=== PATIENT | female | born 1940 | race Caucasian/White ===

== ENCOUNTER 2017-12-06 19:59 | Emergency (ER) | payer MEDICARE, SELFPAY ==
[2017-12-06 20:00] VITALS: BP 157/92; PULSE 65; RESP 16; TEMP 36.6; O2SAT 92; BMI 33.7
[2017-12-06 21:17] VITALS: BP 139/71; PULSE 66; RESP 25; O2SAT 93
--- NOTE | 2017-12-06 22:00 | EKG12_ITS ---
Test Reason : CP Blood Pressure : / mmHG Vent. Rate : 064 BPM Atrial Rate : 063 BPM P-R Int : 000 ms QRS Dur : 194 ms QT Int : 504 ms P-R-T Axes : 000 -78 105 degrees QTc Int : 519 ms Ventricular-paced rhythm Abnormal ECG Confirmed by KEARA COLLIER, AYDE ([id number]), society editor JASON OSORIO ([id number]) on 12/08/2017 1:35:48 PM Referred By: CEASAR Confirmed By:AYDE SARAH MD
[2017-12-06] MEDS: Ipratropium/Albuterol Sulfate 3 ML AMPUL.NEB INHALATION (22:09)
[2017-12-06] MEDS: Albuterol 2.5 MG/3 ML VIAL.NEB. INHALATION ×2 (22:09→22:23)
[2017-12-06 22:10] VITALS: PULSE 60; RESP 24
[2017-12-06 22:23] VITALS: PULSE 62; RESP 20
[2017-12-06 22:45] LABS: Absolute Lymphocyte Count 2.43 X10^3/ul (0.83-4.51); Absolute Neutrophil Count 5.9 X10^3/uL (2.0-7.7); Basophil# 0.02 X10^3/uL; Basophil% 0.2 % (0-1); Eosinophil# 0.18 X10^3/uL; Eosinophils% 1.9 % (0-5); Hematocrit 41.7 % (37-47); Hemoglobin 13.1 g/dl (12.0-15.0); Lymphocyte # 2.43 X10^3/ul (4.0); Lymphocyte % 25.8 % (19-41); Mean Corp Hgb Conc 31.4 g/gl (32-36); Mean Corpuscular Hgb 29.4 pg (27.0-32.0); Mean Corpuscular Volume 93.7 fL (81-99); Mean Platelet Vol. 9.8 fl (6.2-12.0); Monocyte# 0.82 X10^3/uL; Monocyte% 8.7 % (0-10); Neutrophil # 5.93 X10^3/uL (2.7-7.7); Neutrophil % 63.1 % (47-70); Platelet Count 146 K/mm3 (150-450); RBC Distribution Width CV 16.8 % (11.6-14.6); RBC Distribution Width SD 56.8 fl (35.1-43.9); Red Blood Count 4.45 M/mm3 (4.2-5.4); White Blood Count 9.4 K/mm3 (4.4-11.0)
--- NOTE | 2017-12-06 22:45 | RAD_ITS ---
STUDY: X-RAY CHEST REASON FOR EXAM: Female, 77 years old. Cough TECHNIQUE: Frontal view of the chest COMPARISON: None. FINDINGS: There are mild congestive changes noted. The lungs are otherwise clear. There are no pleural effusions. There is no pneumothorax. The heart is enlarged. There is a pacemaker in place. The patient is status post sternotomy. RAD/Chest PA and Lateral IMPRESSION: Cardiomegaly with mild pulmonary vascular congestion. Electronically Signed: Jaison Saha, at 23:01 EST Tel , Service support ,
[2017-12-06 22:46] LABS: POSITIVE COUNT NO; POSITIVE DIFFERENTIAL NO; POSITIVE MORPHOLOGY NO
[2017-12-06 23:09] VITALS: BP 108/75; PULSE 98; RESP 21; O2SAT 95
[2017-12-06 23:10] LABS: Anion Gap 5 (5-15); BUN 35 mg/dL (7-18); BUN/Creat Ratio 18.7 RATIO (10-20); Calcium,Total 8.8 mg/dL (8.5-10.1); Chloride 103 mmol/L (98-107); Creatinine, Serum 1.87 mg/dL (0.55-1.02); EST Glomerular Filtration Rate 28 mL/min (>60); Est Glom Filt Rate - Afr Amer 34 mL/min (>60); Estimated Creatinine Clearance 25.82 ml/min; Glucose 254 mg/dL (74-106); Potassium 4.2 mmol/L (3.5-5.1); Sodium Level 140 mmol/L (136-145)
--- NOTE | 2017-12-06 23:32 | ED.DCSUM_ITS ---
- ER Visit Summary Date of Service: 12/06/17 Chief Complaint: Cough History of Present Illness: The patient is a 77 F with a history of COPD and CHF. She is on home oxygen at 2-1/2 L. She reports cough with clear sputum and shortness of breath since yesterday. She reports her fever up to 102.5. Patient has been on Levaquin for the past 6 days for UTI. She is currently on renal dosing. She has 2 days left of her Levaquin. Physical Examination: Blood pressure is 139/71, temperature 97.8, heart rate 66 , respiratory rate 25, pulse ox 93% on 2 L nasal cannula. Patient sitting upright in bed speaking full sentences. She is in no acute distress. Heart is regular rate and rhythm. Lung sounds are with auditory and expiratory wheezes throughout. She is in no respiratory distress. Abdomen is soft, obese, nontender. Lower extremity examination reveals 1+ bilateral edema that is symmetric. Test Results: EKG is paced at 64 with no acute ischemia. Portable chest x-ray shows cardiomegaly. There is mild pulmonary congestion. CBC reveals normal white count. Lately count is 146,000. Chemistry studies reveal glucose of 254 , BUN 35, creatinine 1.87. Emergency Department Course and Treatment: Patient was given a DuoNeb treatment followed by 2 albuterol's. On repeat evaluation she does have improved air movement. There is very minimal wheeze. I am concerned the patient may have influenza with a temperature 102.5 and respiratory symptoms without an infiltrate. I have advised that we are out of the influenza reagent for testing , but if the sample is collected tonight he can be tested tomorrow. Patient received a single dose of Tamiflu now. She requires 30 mg once a day ?5 days secondary to her renal function. She is given a prescription for 4 additional days, but will only fill it if they are called with a positive influenza test result. She will also be given a course of Zithromax to cover atypicals as she has been on Levaquin. She will also be given a short course of prednisone. Patient has aerosols at home that she has not been using. She will use these instead of her puffer. She is to return for worsening symptoms. Treatment Plan: [] Disposition: Discharge Impression: 1. COPD exacerbation 2. Influenza This note was generated with [employer] software. It may contain incorrect words, spelling, and punctuation that were not noted in review of the chart prior to signing ED Disposition - Plan for ED Patient: Disposition: Home or Assisted Living Chief Complaint: Cough Instructions: ED COPD Flare Prescriptions: Azithromycin [Zithromax] 250 mg PO DAILY #4 tablet Oseltamivir Phosphate [Tamiflu] 30 mg PO DAILY #4 capsule Prednisone [Deltasone] 60 mg PO DAILY #12 tablet Referrals: Mook Rain MD [Primary Care Provider] - 3-5 Days if not improving
[2017-12-06] MEDS: Azithromycin 250 MG Tablet 500 MG PO (23:45)
[2017-12-06] MEDS: Oseltamivir Phosphate 30 MG Capsule PO (23:45)
[2017-12-06 23:46] VITALS: BP 132/65; PULSE 60; RESP 20; O2SAT 90
== END 2017-12-06 23:50 | disposition home or self-care (01) ==
PROVIDERS: Emergency Provider Emergency Medicine; Family Provider Family Medicine; PCP Family Medicine
DX: J44.1 Chronic obstructive pulmonary disease with (acute) exacerbation (principal); J11.1 Influenza due to unidentified influenza virus with other respiratory manifestations; Z99.81 Dependence on supplemental oxygen; I48.91 Unspecified atrial fibrillation; I13.0 Hypertensive heart and chronic kidney disease with heart failure and stage 1 through stage 4 chronic kidney disease, or unspecified chronic kidney disease; I50.9 Heart failure, unspecified; E11.22 Type 2 diabetes mellitus with diabetic chronic kidney disease; N18.9 Chronic kidney disease, unspecified; Z87.891 Personal history of nicotine dependence; Z79.4 Long term (current) use of insulin; E11.40 Type 2 diabetes mellitus with diabetic neuropathy, unspecified; E78.00 Pure hypercholesterolemia, unspecified; Z79.01 Long term (current) use of anticoagulants; Z79.899 Other long term (current) drug therapy
CPT/HCPCS: 36415; 71046; 80048; 85025; 87040; 87804; 93005; 94640; 99285; A4216

== ENCOUNTER → 2018-01-19 13:00 | Outpatient (CLI) | payer MEDICARE, SELFPAY ==
--- NOTE | 2018-01-19 13:02 | US_ITS ---
STUDY: RENAL ULTRASOUND - COMPLETE REASON FOR EXAM: Female, 77 years old. Chronic renal disease TECHNIQUE: Transverse and longitudinal imaging of the kidneys and bladder was obtained using real-time ultrasound. COMPARISON: None. FINDINGS: RIGHT KIDNEY: The right kidney is normal in location. The right kidney measures 12.3 x 5.5 x 6.4 cm. The renal cortex is normal in appearance. The renal cortex measures 1.4 cm. There is no demonstrated renal mass. There is no dilatation of the collecting system. There is a possible duplicated system in the right kidney. There is an echogenic focus in the upper pole of the right kidney measuring 5 mm. LEFT KIDNEY: The left kidney is normal in location. The left kidney measures 11.8 x 4.8 x 5.3 cm. The renal cortex is normal in appearance. The renal cortex measures 1.3 cm. There is no demonstrated renal mass. There is no dilatation of the collecting system. There is an echogenic focus in the upper pole of the left kidney measuring 4 mm. BLADDER: The distended urinary bladder has a volume of 150 ml. The bladder shows a normal wall thickness. There is no demonstrated mass in the bladder. The right ureteral jet was visualized. The left ureteral jet was visualized. US/Kidney and Bladder IMPRESSION: The kidneys are normal in size and echogenicity without hydronephrosis. There may be calyceal stones in the upper poles of both kidneys. Incidentally noted is splenic prominence, measuring almost 15 cm in size. Electronically Signed: Mandy Davila MD at 14:52 EDT Tel Direct: [phone], Service support ,
== END ==
PROVIDERS: Family Provider Family Medicine; PCP Family Medicine; Visit Provider Internal Medicine Nephrology
DX: N18.3 Chronic kidney disease, stage 3 (moderate) (principal)
CPT/HCPCS: 76770

== ENCOUNTER 2018-04-21 02:23 | Observation (INO) | payer MEDICARE, SELFPAY ==
[2018-04-21] VITALS (19 sets, daily range): BP systolic 105–142; BP diastolic 38–79; PULSE 62–82; RESP 14–18; TEMP 36.4–36.8; O2SAT 95–98; BMI 30.8
--- NOTE | 2018-04-21 02:46 | PCM.HP.STD ---
Problem List (1) HCAP (healthcare-associated pneumonia) Status: Suspected (2) Hypertension Status: Chronic (3) Hyperlipidemia Status: Chronic (4) Type 2 diabetes mellitus Status: Chronic (5) COPD (chronic obstructive pulmonary disease) Status: Chronic (6) Chronic hypoxemic respiratory failure Status: Chronic (7) Chronic anticoagulation Status: Acute (8) Atrial fibrillation Status: Chronic (9) Coronary artery disease Status: Chronic Qualifiers: Coronary Disease-Associated Artery/Lesion type: [place] artery (10) Presence of combination internal cardiac defibrillator (ICD) and pacemaker Status: Chronic (11) End stage renal disease Status: Chronic (12) Diabetic neuropathy Status: Chronic (13) Peripheral vascular disease Status: Chronic (14) Venous insufficiency of both lower extremities Status: Chronic (15) Congestive heart failure Status: Chronic Qualifiers: Heart failure type: systolic (16) Thrombocytopenia Status: Acute (17) Substernal chest pain Status: Acute (18) History of coronary artery bypass graft Status: Chronic Comment: 2013 (19) History of PTCA Status: Chronic Comment: 6 stents per patient History of Present Illness Date of Admission: 04/21/18 Chief Complaint: CP and lightheadedness The patient is a 77 year old F with a PMH of DM II, HTN, HLD, CAD, CABG, PVD, PM/AICD, systolic CHF, ESRD on HD, AF, chronic anticoagulation and chronic respiratory failure with hypoxemia who presented to the [facility] ED c/o substernal chest pain per the ED physician. She never mentioned CP to me and told me the reason she went to the ED was she got lightheaded at HD. She also did not mention a cough but when I asked she said she had a dry cough. She denies fevers, sweats, chills. she denied any change in SOB and she normally wears 2-2 1/2 LPM at home. She was afebrile at presentation to the ED. The CBC was unremarkable per the documentation except for plt's of 127,000. A CXR showed a retrocardiac infiltrate vs atelectasis. It was an AP film without a lateral. The initial troponin was 0.038 at [facility]. No EKG was sent. Apparently she was recently at [facility] after a 9 day admission to [facility]. the ER doc said for cellulitis but the patient said it was for her heart and the patient's dtr told me it was because her heart and lungs and kidneys were fighting. Neither the dtr or the patient know her meds and can not tell what reaction she has to the numerous allergies she has lasted. History was very difficult to obtain. the only time the patient coughed was when I had her take deep breaths. she is not tachypneic and has no conversational dyspnea or accessory muscle use. She does not appear to be toxic and in fact she does not appear to be in any distress at all. She is going to be admitted for observation for HCAP suspected by the [facility] ED doc. Past Medical History Past Medical History (Chronic Problems): Chronic Problems Hypertension (Chronic) Hyperlipidemia (Chronic) Type 2 diabetes mellitus (Chronic) COPD (chronic obstructive pulmonary disease) (Chronic) Chronic hypoxemic respiratory failure (Chronic) Atrial fibrillation (Chronic) Coronary artery disease (Chronic) 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) End stage renal disease (Chronic) Diabetic neuropathy (Chronic) Peripheral vascular disease (Chronic) Venous insufficiency of both lower extremities (Chronic) Congestive heart failure (Chronic) History of coronary artery bypass graft (Chronic) 2013 History of PTCA (Chronic) 6 stents per patient Allergies Penicillins Allergy (Verified 12/06/17 20:05) Hives Tetracyclines Allergy (Verified 12/06/17 20:05) Hives Home Medications: Ambulatory Orders Medication Instructions Recorded Albuterol Sulfate 5 mg IH Q6H PRN 12/06/17 Apixaban [Eliquis] 5 mg PO DAILY 12/06/17 Azithromycin [Zithromax] 250 mg PO DAILY #4 tablet 12/06/17 Benzonatate 100 mg PO TID PRN 12/06/17 Budesonide/Formoterol 160/4.5 2 puff INHALATION BID 12/06/17 [Symbicort 160/4.5 Mcg Inhaler (SP)] Furosemide 40 mg PO DAILY 12/06/17 Gabapentin Enacarbil [Horizant] 600 mg PO QHS 12/06/17 Insulin Aspart [Novolog Flexpen 0 - 100 units SC TIDCM PRN 12/06/17 ([facility])] Insulin Glargine,Hum.rec.anlog 40 unit SQ BREAKFAST 12/06/17 [Daljit Lyle] Insulin Glargine,Hum.rec.anlog 60 unit SQ DINNER 12/06/17 [Toujeo Solostar] Isosorbide Mononitrate [Isosorbide 30 mg PO DAILY 12/06/17 Mononitrate ER] Nitroglycerin 0.4 mg SL Q5M PRN 12/06/17 Oseltamivir Phosphate [Tamiflu] 30 mg PO DAILY #4 capsule 12/06/17 Pantoprazole Sodium [Protonix] 40 mg PO DAILY 12/06/17 Potassium Chloride [Klor-Con 10 meq PO BID 12/06/17 Sprinkle] Prednisone 10 mg PO DAILY 12/06/17 Prednisone [Deltasone] 60 mg PO DAILY #12 tablet 12/06/17 Simvastatin 40 mg PO QHS 12/06/17 Tiotropium Roy [Spiriva 18 MCG] 1 puff INHALATION DAILY 12/06/17 levoFLOXacin tablet [Levaquin] 250 mg PO DAILY 12/06/17 Surgical History: angioplasty - has had a total of 6 stents, cholecystectomy, coronary bypass surgery - 2013, hysterectomy - for DUB, pacemaker implantation - AICD/PM, - Psychiatric History: No pertinent psych hx [employer] History: dysfunctional uterine bld Lives: With Family, - - she is a and up until last year lived in [place] Smoking Status: Former smoker - quit in 2001 Tobacco Use: Non-smoker Alcohol: Rare Drugs: None - *Family History Maternal History Items: No pertinent history Paternal History Items: No pertinent history Review of Systems Constitutional: Denies: Anorexia, Chills, Fever, Night Sweats Eyes: Denies: Vision Change HEENT: Reports: Difficulty Swallowing. Denies: Head Aches, Sore Throat Cardiovascular: Reports: Chest Pain, Edema, Light Headedness. Denies: Palpitations, Paroxysmal Noc. Dyspnea, Syncope Respiratory: Reports: Cough - dry...she did not seem to think this was out of the ordinary for her and she does have COPD Gastrointestinal: Denies: Abdominal Pain, Diarrhea, Nausea, Vomiting Genitourinary: Reports: Dysuria - for the past month Gynecological: Denies: Breast symptoms, Vaginal discharge Musculoskeletal: Denies: Joint Pain, Joint Tenderness Skin: Reports: - - she has a small scab on the LLE just proximal to the L ankle on the medial side.....no erythema or increased warmth. she has discoloration of both LE's due to chronic swelling/venous insufficiency. Denies: Jaundice, Rash Neurological: Reports: Difficulty swallowing. Denies: Slurred speech, Confusion, Focal weakness, Numbness, Tingling, Seizures Psychiatric: Denies: Anxiety, Depression, Homicidal Ideations, Suicidal Ideations Endocrine: Denies: Change in Body Habitus Hematologic/ Lymphatic: Denies: Hx of blood clot VTE Information - Inpt Only VTE Present on Admission: No VTE Mechan Device Prophylaxis: None - pt can not tolerate leg compression due to pain VTE Pharm Prophylaxis ordered?: No Reason prophylaxis not ordered:: Treatment Not Indicated - she is anticoagulated with eliquis Patient Problems: Active and Suspected Problems HCAP (healthcare-associated pneumonia) (Suspected) Chronic anticoagulation (Acute) Thrombocytopenia (Acute) Substernal chest pain (Acute) - Physical Exam General: Alert, Oriented x3, Cooperative, No apparent distress, Well developed, Well nourished HEENT: Atraumatic, PERRLA, EOMI Oral: Moist Mucosa Neck: Negative Carotid Bruits, No Nodes, Trachea Midline Lungs: No rhonchi, Rales, Wheezes, - - rare exp wheeze, no rales, not tachypneic, no accessory muscle use, no conversational dyspnea, symmetric chest rise.......dminished throughout but, most diminished in the right base Cardiovascular: Irregular Rate, No rub noted, No Gallop, - - distant heart sounds. no MM appreciated and no gallop or rub Abdomen: Bowel Sounds Present, Soft, Non Tender, Non-Distended Extremities: No clubbing, No cyanosis, No Calf Tenderness, Diminished Peripheral Pulses, Edema, - - small eschar Left LE just proximal to the ankle and on the medial side. No increased warmth and no purulent DC. the skin over the distal LE's is discolored from long standing vennous insufficiency and the skin has lost the elasticity...it is boggy and fibrotic......will be very prone to breakdown Skin: No rashes Musculoskeletal: Arthritic Changes Neurological: Cranial nerves II-XII grossly intact, Neuro grossly intact Psych/Mental Status: Normal Affect, Appropriate Assessment/Plan All Active Problems Chronic anticoagulation (Acute) Thrombocytopenia (Acute) Substernal chest pain (Acute) Impressions 1. ? HCAP - afebrile with a normal WBC count at [facility] ED. minimal cough with no SOB and does not appear ill. Her complaint at presentation to the ER was substernal chest pain and lightheadedness. I do not think she has PNA. 2. chest pain in a pt with hx of CAD, CABG and PTCA's 3. DM II 4. HTN 5. HLD 6. AF 7. chronic anticoagulation 8. COPD 9. PVD 10. chronic respiratory failure with hypoxemia 11. chronic systolic CHF 12. Venous insufficiency - long standing 13. former smoker Admit for observation Obtain a PA and Lateral CXR in the AM She got 750 mg of Levaquin and 1 GM of Vancomycin at [facility] so there is no need to start antibiotics tonight.....bharti since I am not sure she even has HCAP Obtain records from [facility] and Dr. Michael cardona If she is still in the hospital on Wednesday will need to consult [facility] for HD....Dr. 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
--- NOTE | 2018-04-21 02:55 | HP.PCM_ITS ---
Problem List (1) HCAP (healthcare-associated pneumonia) Status: Suspected (2) Hypertension Status: Chronic (3) Hyperlipidemia Status: Chronic (4) Type 2 diabetes mellitus Status: Chronic (5) COPD (chronic obstructive pulmonary disease) Status: Chronic (6) Chronic hypoxemic respiratory failure Status: Chronic (7) Chronic anticoagulation Status: Acute (8) Atrial fibrillation Status: Chronic (9) Coronary artery disease Status: Chronic Qualifiers: Coronary Disease-Associated Artery/Lesion type: [place] artery (10) Presence of combination internal cardiac defibrillator (ICD) and pacemaker Status: Chronic (11) End stage renal disease Status: Chronic (12) Diabetic neuropathy Status: Chronic (13) Peripheral vascular disease Status: Chronic (14) Venous insufficiency of both lower extremities Status: Chronic (15) Congestive heart failure Status: Chronic Qualifiers: Heart failure type: systolic (16) Thrombocytopenia Status: Acute (17) Substernal chest pain Status: Acute (18) History of coronary artery bypass graft Status: Chronic Comment: 2013 (19) History of PTCA Status: Chronic Comment: 6 stents per patient History of Present Illness Date of Admission: 04/21/18 Chief Complaint: CP and lightheadedness The patient is a 77 year old F with a PMH of DM II, HTN, HLD, CAD, CABG, PVD, PM/AICD, systolic CHF, ESRD on HD, AF, chronic anticoagulation and chronic respiratory failure with hypoxemia who presented to the [facility] ED c/o substernal chest pain per the ED physician. She never mentioned CP to me and told me the reason she went to the ED was she got lightheaded at HD. She also did not mention a cough but when I asked she said she had a dry cough. She denies fevers, sweats, chills. she denied any change in SOB and she normally wears 2-2 1/2 LPM at home. She was afebrile at presentation to the ED. The CBC was unremarkable per the documentation except for plt's of 127,000. A CXR showed a retrocardiac infiltrate vs atelectasis. It was an AP film without a lateral. The initial troponin was 0.038 at [facility]. No EKG was sent. Apparently she was recently at [facility] after a 9 day admission to [facility]. the ER doc said for cellulitis but the patient said it was for her heart and the patient's dtr told me it was because her heart and lungs and kidneys were fighting. Neither the dtr or the patient know her meds and can not tell what reaction she has to the numerous allergies she has lasted. History was very difficult to obtain. the only time the patient coughed was when I had her take deep breaths. she is not tachypneic and has no conversational dyspnea or accessory muscle use. She does not appear to be toxic and in fact she does not appear to be in any distress at all. She is going to be admitted for observation for HCAP suspected by the [facility] ED doc. Past Medical History Past Medical History (Chronic Problems): Chronic Problems Hypertension (Chronic) Hyperlipidemia (Chronic) Type 2 diabetes mellitus (Chronic) COPD (chronic obstructive pulmonary disease) (Chronic) Chronic hypoxemic respiratory failure (Chronic) Atrial fibrillation (Chronic) Coronary artery disease (Chronic) Presence of combination internal cardiac defibrillator (ICD) and pacemaker ( Chronic) End stage renal disease (Chronic) Diabetic neuropathy (Chronic) Peripheral vascular disease (Chronic) Venous insufficiency of both lower extremities (Chronic) Congestive heart failure (Chronic) History of coronary artery bypass graft (Chronic) 2013 History of PTCA (Chronic) 6 stents per patient Allergies Penicillins Allergy (Verified 12/06/17 20:05) Hives Tetracyclines Allergy (Verified 12/06/17 20:05) Hives Home Medications: Ambulatory Orders Medication Instructions Recorded Albuterol Sulfate 5 mg IH Q6H PRN 12/06/17 Apixaban [Eliquis] 5 mg PO DAILY 12/06/17 Azithromycin [Zithromax] 250 mg PO DAILY #4 tablet 12/06/17 Benzonatate 100 mg PO TID PRN 12/06/17 Budesonide/Formoterol 160/4.5 2 puff INHALATION BID 12/06/17 [Symbicort 160/4.5 Mcg Inhaler (SP)] Furosemide 40 mg PO DAILY 12/06/17 Gabapentin Enacarbil [Horizant] 600 mg PO QHS 12/06/17 Insulin Aspart [Novolog Flexpen 0 - 100 units SC TIDCM PRN 12/06/17 ([facility])] Insulin Glargine,Hum.rec.anlog 40 unit SQ BREAKFAST 12/06/17 [Daljit Lyle] Insulin Glargine,Hum.rec.anlog 60 unit SQ DINNER 12/06/17 [Toujeo Solostar] Isosorbide Mononitrate [Isosorbide 30 mg PO DAILY 12/06/17 Mononitrate ER] Nitroglycerin 0.4 mg SL Q5M PRN 12/06/17 Oseltamivir Phosphate [Tamiflu] 30 mg PO DAILY #4 capsule 12/06/17 Pantoprazole Sodium [Protonix] 40 mg PO DAILY 12/06/17 Potassium Chloride [Klor-Con 10 meq PO BID 12/06/17 Sprinkle] Prednisone 10 mg PO DAILY 12/06/17 Prednisone [Deltasone] 60 mg PO DAILY #12 tablet 12/06/17 Simvastatin 40 mg PO QHS 12/06/17 Tiotropium [place] [Spiriva 18 MCG] 1 puff INHALATION DAILY 12/06/17 levoFLOXacin tablet [Levaquin] 250 mg PO DAILY 12/06/17 Surgical History: angioplasty - has had a total of 6 stents, cholecystectomy, coronary bypass surgery - 2013, hysterectomy - for DUB, pacemaker implantation - AICD/PM, - Psychiatric History: 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 Denies: Head Aches, Sore Throat Cardiovascular: Reports: Chest Pain, Edema, Light Headedness. Denies: Palpitations, Paroxysmal Noc. Dyspnea, Syncope Respiratory: Reports: Cough - dry...she did not seem to think this was out of the ordinary for her and she does have COPD Gastrointestinal: Denies: Abdominal Pain, Diarrhea, Nausea, Vomiting Genitourinary: Reports: Dysuria - for the past month Gynecological: Denies: Breast symptoms, Vaginal discharge Musculoskeletal: Denies: Joint Pain, Joint Tenderness Skin: Reports: - - she has a small scab on the LLE just proximal to the L ankle on the medial side.....no erythema or increased warmth. she has discoloration of both LE's due to chronic swelling/venous insufficiency. Denies: Jaundice, Rash Neurological: Reports: Difficulty swallowing. Denies: Slurred speech, Confusion , Focal weakness, Numbness, Tingling, Seizures Psychiatric: Denies: Anxiety, Depression, Homicidal Ideations, Suicidal Ideations Endocrine: Denies: Change in Body Habitus Hematologic/ Lymphatic: Denies: Hx of blood clot VTE Information - Inpt Only VTE Present on Admission: No VTE Mechan Device Prophylaxis: None - pt can not tolerate leg compression due to pain VTE Pharm Prophylaxis ordered?: No Reason prophylaxis not ordered:: Treatment Not Indicated - she is anticoagulated with eliquis Patient Problems: Active and Suspected Problems HCAP (healthcare-associated pneumonia) (Suspected) Chronic anticoagulation (Acute) Thrombocytopenia (Acute) Substernal chest pain (Acute) - Physical Exam General: Alert, Oriented x3, Cooperative, No apparent distress, Well developed, Well nourished HEENT: Atraumatic, PERRLA, EOMI Oral: Moist Mucosa Neck: Negative Carotid Bruits, No Nodes, Trachea Midline Lungs: No rhonchi, Rales, Wheezes, - - rare exp wheeze, no rales, not tachypneic , no accessory muscle use, no conversational dyspnea, symmetric chest rise.......dminished throughout but, most diminished in the right base Cardiovascular: Irregular Rate, No rub noted, No Gallop, - - distant heart sounds. no MM appreciated and no gallop or rub Abdomen: Bowel Sounds Present, Soft, Non Tender, Non-Distended Extremities: No clubbing, No cyanosis, No Calf Tenderness, Diminished Peripheral Pulses, Edema, - - small eschar Left LE just proximal to the ankle and on the medial side. No increased warmth and no purulent DC. the skin over the distal LE's is discolored from long standing vennous insufficiency and the skin has lost the elasticity...it is boggy and fibrotic......will be very prone to breakdown Skin: No rashes Musculoskeletal: Arthritic Changes Neurological: Cranial nerves II-XII grossly intact, Neuro grossly intact Psych/Mental Status: Normal Affect, Appropriate Assessment/Plan All Active Problems Chronic anticoagulation (Acute) Thrombocytopenia (Acute) Substernal chest pain (Acute) Impressions 1. ? HCAP - afebrile with a normal WBC count at [facility] ED. minimal cough with no SOB and does not appear ill. Her complaint at presentation to the ER was substernal chest pain and lightheadedness. I do not think she has PNA. 2. chest pain in a pt with hx of CAD, CABG and PTCA's 3. DM II 4. HTN 5. HLD 6. AF 7. chronic anticoagulation 8. COPD 9. PVD 10. chronic respiratory failure with hypoxemia 11. chronic systolic CHF 12. Venous insufficiency - long standing 13. former smoker Admit for observation Obtain a PA and Lateral CXR in the AM She got 750 mg of Levaquin and 1 GM of Vancomycin at [facility] so there is no need to start antibiotics tonight.....bharti since I am not sure she even has HCAP Obtain records from [facility] and Dr. Michael cardona If she is still in the hospital on Wednesday will need to consult [facility] for HD....Dr. Martin is her image processing engineer Serial CE's EKG now IS Aerosols Continue the Apixaban obtain a medication reconciliation Blood cultures Urine for Legionella and streptococcal antigens Sputum culture Code Visit OBSV E&M: 48851 Initial observation care L3
--- NOTE | 2018-04-21 03:16 | EKG12_ITS ---
Test Reason : AM EKG Blood Pressure : / mmHG Vent. Rate : 064 BPM Atrial Rate : 073 BPM P-R Int : 000 ms QRS Dur : 216 ms QT Int : 576 ms P-R-T Axes : 000 -78 099 degrees QTc Int : 594 ms Ventricular-paced rhythm with occasional Premature ventricular complexes Abnormal ECG When compared with ECG of 06-DEC-2017 20:07, Premature ventricular complexes are now Present Confirmed by HELEN COLLIER, MIKE ([id number]), multimedia editor JASON OSORIO ([id number]) on 04/26/2018 1:12:47 PM Referred By: DR OLSEN Confirmed By:MIKE CERVANTES MD
[2018-04-21 03:58] LABS: Absolute Lymphocyte Count 1.27 X10^3/ul (0.83-4.51); Absolute Neutrophil Count 3.9 X10^3/uL (2.0-7.7); Basophil# 0.02 X10^3/uL; Basophil% 0.3 % (0-1); Eosinophil# 0.35 X10^3/uL; Eosinophils% 5.6 % (0-5); Hematocrit 39.9 % (37-47); Hemoglobin 12.6 g/dl (12.0-15.0); Lymphocyte # 1.27 X10^3/ul (4.0); Lymphocyte % 20.2 % (19-41); Mean Corp Hgb Conc 31.6 g/gl (32-36); Mean Platelet Vol. 9.8 fl (6.2-12.0); Monocyte# 0.78 X10^3/uL; Monocyte% 12.4 % (0-10); Neutrophil # 3.86 X10^3/uL (2.7-7.7); Neutrophil % 61.3 % (47-70); POSITIVE COUNT NO; POSITIVE DIFFERENTIAL NO; POSITIVE MORPHOLOGY NO; Platelet Count 118 K/mm3 (150-450); RBC Distribution Width CV 15.8 % (11.6-14.6); RBC Distribution Width SD 55.5 fl (35.1-43.9); White Blood Count 6.3 K/mm3 (4.4-11.0)
[2018-04-21 04:05] LABS: Anion Gap 9 (5-15); BUN 15 mg/dL (7-18); BUN/Creat Ratio 6.9 RATIO (10-20); Calcium,Total 8.4 mg/dL (8.5-10.1); Chloride 98 mmol/L (98-107); Creatinine, Serum 2.16 mg/dL (0.55-1.02); EST Glomerular Filtration Rate 24 mL/min (>60); Est Glom Filt Rate - Afr Amer 29 mL/min (>60); Estimated Creatinine Clearance 22.35 ml/min; Glucose 112 mg/dL (74-106); Magnesium 1.7 mg/dL (1.6-2.6); Potassium 3.2 mmol/L (3.5-5.1); Sodium Level 138 mmol/L (136-145)
[2018-04-21 04:25] LABS: Phosphorus 2.4 mg/dL (2.5-4.9)
[2018-04-21 05:41] LABS: Mucous, Urine 0 SEEN /hpf (<or=2+)
[2018-04-21 05:54] LABS: Color, Urine Yellow (Yellow); Glucose, Dipstick Normal (Normal); Ketone-Dipstick Negative (Negative); Leukocyte Esterase-Dipstick 500 /ul (Negative); Nitrite-Dipstick Negative (Negative); Occult Blood-Urine 25 /ul (Negative); Protein-Dipstick 30 mg/dl (Negative); Specific Gravity, Urine 1.015 (1.002-1.030); Urine Bilirubin Dipstick Negative (Negative); Urine Clarity Cloudy (Clear); Urine Urobilinogen Normal (Normal)
[2018-04-21 06:06] LABS: White Blood Cells >100 SEEN /hpf (0-5)
[2018-04-21 06:07] LABS: Bacteria 1+ /hpf (None Seen); Red Blood Cells-Urine 0-5 SEEN /hpf (0-5); Squamous Epithelial Cells - UA 25-50 SEEN /hpf (5-10); Transitional Epithelial - Ur 5-10 SEEN /hpf (0-5)
[2018-04-21] MEDS: Ciprofloxacin 400 MG/200 ML BAG 200 MG IV (06:53)
[2018-04-21] MEDS: Metoclopramide 5 MG TABLET PO ×3 (06:54→22:27)
--- NOTE | 2018-04-21 07:05 | RAD_ITS ---
STUDY: X-RAY CHEST REASON FOR EXAM: Female, 77 years old. Cough TECHNIQUE: PA and lateral chest COMPARISON: 12/06/2017 FINDINGS: Right internal jugular central venous catheter tip in distal SVC (dual-lumen catheter). Left pectoral single lead AICD device with tip terminating in the region of the right ventricle. Stable. Median sternotomy and CABG. Small layering left effusion, bibasilar atelectasis, mild perihilar interstitial prominence. No pneumothorax. No right-sided effusion. Mild cardiomegaly. Stents are present. Median sternotomy. Normal mediastinal silhouette, samuel and pleural margins. No acute osseous or upper abdominal process. RAD/Chest PA and Lateral IMPRESSION: Left effusion, small. Left lung base atelectasis. Mild perihilar interstitial prominence. In the setting of chronic cardiac disease these features may reflect mild CHF, or pneumonia. Electronically Signed: Kevin Landon, at 11:15 EDT Tel , Service support ,
[2018-04-21 07:25] LABS: Bedside Glucose 127 mg/dL (70-110)
[2018-04-21] MEDS: Amiodarone 200 MG Tablet PO (09:44)
[2018-04-21] MEDS: Bumetanide 0.5 MG Tablet PO ×2 (09:44→23:39)
[2018-04-21] MEDS: Carvedilol 3.125 MG TABLET PO ×2 (09:44→23:39)
[2018-04-21] MEDS: Bumetanide 2 MG Tablet PO ×2 (09:44→23:38)
[2018-04-21] MEDS: Isosorbide Mononitrate 60 MG Tablet PO (09:44)
[2018-04-21] MEDS: guaiFENesin 1,200 MG Tablet 1200 MG PO ×2 (09:45→22:27)
[2018-04-21] MEDS: APIXABAN 5 MG TABLET PO ×2 (09:45→22:27)
--- NOTE | 2018-04-21 09:48 | DCINST_ITS ---
- Discharge Diagnoses Current Active Problems: Current Active and Chronic Problems Hypertension (Chronic) Hyperlipidemia (Chronic) Type 2 diabetes mellitus (Chronic) COPD (chronic obstructive pulmonary disease) (Chronic) Chronic hypoxemic respiratory failure (Chronic) Chronic anticoagulation (Acute) Atrial fibrillation (Chronic) Coronary artery disease (Chronic) Presence of combination internal cardiac defibrillator (ICD) and pacemaker ( Chronic) End stage renal disease (Chronic) Diabetic neuropathy (Chronic) Peripheral vascular disease (Chronic) Venous insufficiency of both lower extremities (Chronic) Congestive heart failure (Chronic) Thrombocytopenia (Acute) Substernal chest pain (Acute) History of coronary artery bypass graft (Chronic) 2013 History of PTCA (Chronic) 6 stents per patient You will use the following diet at home:: Calorie/Carbohydrate Controlled ( specify 1200, 1400, etc) - 1800 ADA diet, Cardiac Discharge Activity: May Not Drive Call your doctor if you observe: Fever of 101 or Higher, Inability to urinate, Shortness of breath Allergies/Adverse Reactions: Allergies latex Allergy (Verified 04/21/18 03:41) Anaphylaxis meperidine [From Demerol] Allergy (Verified 04/21/18 03:40) Hives Penicillins Allergy (Verified 12/06/17 20:05) Hives Tetracyclines Allergy (Verified 12/06/17 20:05) Hives aspirin Adverse Reaction (Verified 04/21/18 04:35) Unknown atorvastatin Adverse Reaction (Verified 04/21/18 04:35) Unknown codeine Adverse Reaction (Verified 04/21/18 04:35) Unknown hydromorphone [From Dilaudid] Adverse Reaction (Verified 04/21/18 04:35) Unknown pentazocine Adverse Reaction (Verified 04/21/18 04:35) Unknown pioglitazone Adverse Reaction (Verified 04/21/18 04:35) Unknown propoxyphene Adverse Reaction (Verified 04/21/18 04:35) Unknown sulfamethoxazole [From Bactrim] Adverse Reaction (Verified 04/21/18 04:35) Unknown trimethoprim [From Bactrim] Adverse Reaction (Verified 04/21/18 04:35) Unknown Medications to take at Discharge Apixaban [Eliquis] 5 mg PO BID 12/06/17 Budesonide/Formoterol 160/4.5 [Symbicort 160/4.5 Mcg Inhaler (SP)] 2 puff INHALATION BID 12/06/17 Insulin Glargine,Hum.rec.anlog [Toujeo Solostar] 12 unit SQ TIDCM 12/06/17 Isosorbide Mononitrate [Isosorbide Mononitrate ER] 60 mg PO DAILY 12/06/17 Nitroglycerin 0.4 mg SL Q5M PRN 12/06/17 Simvastatin 40 mg PO QHS 12/06/17 Amiodarone 200 mg PO DAILY 04/21/18 Bumetanide [Bumex] 0.5 mg PO BID 04/21/18 Bumetanide [Bumex] 2 mg PO BID 04/21/18 Carvedilol [Coreg (Beta Mayra)] 3.125 mg PO BID 04/21/18 Hydrocodone/Acetaminophen [[place] 5-325 Tablet] 1 tablet PO TID PRN 04/21/18 Insulin Aspart [Novolog Flexpen] 0 - 100 units SC TIDCM #0 04/21/18 Metoclopramide HCl [Reglan] 5 mg PO TID 04/21/18 Omeprazole 20 mg PO DAILY 04/21/18 Tramadol HCl [Ultram] 50 mg PO Q6H 04/21/18 Trazodone HCl 100 mg PO QHS 04/21/18 Insulin Glargine,Hum.rec.anlog [Lantus] 36 unit SQ QHS 04/22/18 Insulin Glargine,Hum.rec.anlog [Lantus] 50 unit SQ BREAKFAST 04/22/18 Primary Care Physician: Mook Rain MD [Primary Care Provider] - Please follow up with your Primary Care Physician in: in 1-2 weeks Test Results: Test results from this visit will be discussed in further detail at your follow- up appointment, if applicable. Please Follow Up With: Aren Saunders MD When: in 2-3 weeks for CHF, CAD Please Follow Up With: Ynes De La Torre MD When: ESRD on HD IN 2-4 WEEKS
--- NOTE | 2018-04-21 09:48 | PCM.DC.SUM ---
Discharge Date and Diagnosis - Problem List Patient Problems: Active and Suspected Problems HCAP (healthcare-associated pneumonia) (Suspected) Chronic anticoagulation (Acute) Thrombocytopenia (Acute) Substernal chest pain (Acute) Date of Admission: 04/21/18 Date of Discharge: 04/22/18 - Primary Discharge Diagnosis Active and Suspected Problems Atypical chest pain, from musculoskeletal chest pain mainly costochondritis. 2. 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) End stage renal disease (Chronic) Diabetic neuropathy (Chronic) Peripheral vascular disease (Chronic) Venous insufficiency of both lower extremities (Chronic) Congestive heart failure (Chronic) History of coronary artery bypass graft (Chronic) 2013 History of PTCA (Chronic) 6 stents per patient Hospital Course and Treatment Imaging Results: 04/21/18 07:05 Chest PA and Lateral [RAD] AM (NON MEDS) Summary of Care Provided: T [] The patient is a 77 year old F with a PMH of DM II, HTN, HLD, CAD, CABG, PVD, PM/AICD, systolic CHF, ESRD on HD, AF, chronic anticoagulation and chronic respiratory failure with hypoxemia was admitted from [facility] after she had midsternal chest pain while having dialysis on 04/20/2018. Exact duration of chest pain unclear but probably 30 minutes as per the patient she denies URI or lower respiratory tract symptoms including cough, fever, tachypnea although she had transient shortness of breath during chest pain. At home she is on 2 L of home oxygen. Chest x-ray reported as having a retrocardiac infiltrate but I do not appreciate on imaging. Pneumonia workup negative including urinary antigens. Sputum culture pending Prior to that, she was in [facility] for chest pain and CHF in February but she did not had any cardiac imaging testing including stress or cath. She had acute kidney injury on CKD stage III with creatinine about 1.5 in January 2018. She was on started on dialysis in February and since then she lost about 25 kg of fluid weight over last 2 months. From there she was discharged to [facility] from where she was recently discharged to home 1. Atypical chest pain, from musculoskeletal chest pain mainly costochondritis. Acute coronary syndrome ruled out. Patient has history of coronary artery disease status post CABG and PTCA: Patient was admitted in PCU problems are mildly elevated 0.467, 0.568 0.58; flat and indeterminant probably from other comorbidities including CHF, pulmonary hypertension and ESRD on hemodialysis. Discussed with her plant anatomy teacher, Dr. Fam. According to him, she had recent echo in December 2017 showed EF 50% with severe pulmonary hypertension. She had last Lexiscan nuclear stress test in July 2017 which reported as EF 50% with no evidence of ischemia but previous apical infarct cannot be excluded. After discussion with Dr. Fam, stress test was done today. Nuclear stress test is negative for reversible ischemia but evidence of previous apical infarct as well as basal inferior septal infarct. Patient has acute tenderness over left second second to fifth costal cartilages suggestive of costochondritis. Patient also has diffuse aches and pain, predominantly musculoskeletal pain over her shins of tibia, back and thighs probably related to bone mineral disease as the patient is on dialysis. Currently calcium is 8.9. Magnesium 1.8. 2. ESRD on hemodialysis: Discussed with product coordinator Dr. Swartz. Patient is on Zemplar during dialysis session. He further agreed to follow-up patient's vitamin D and bone mineral disease including osteoporosis and address it. Follow-up with product coordinator in 2 weeks. Pneumonia ruled out: I do not appreciate signs and symptoms of pneumonia. Urinary antigens for strep and Legionella are negative. Empirically, she had Levaquin and vancomycin [place] [facility] does not need antibiotic today. Sputum culture specimen mainly content saliva so more accurate assessment. Blood culture is negative so far. Respiratory panel is negative. Pneumonia ruled out. Retrocardiac infiltrate most probably from atelectasis. Urine culture shows contamination of mixed gram-positive and gram-negative organism. 3. Diabetes mellitus type 2: Continue home dose of Lantus. Accu-Cheks before meals and at bedtime cover with NovoLog sliding scale. Other multiple comorbidities include hypertension, dyslipidemia, chronic A. fib on Eliquis, COPD, PVD with chronic hypoxic respiratory failure, chronic systolic heart failure and severe pulmonary hypertension. DVT prophylaxis: On Eliquis Discharge medication reconciliation done. Follow-up instructions discussed with the patient and patient's daughter Pratima at the bedside. Follow-up with product coordinator regarding bone mineral disease, osteoporosis and dialysis sessions discussed with the patient. Discharge Activity: May Not Drive Call your doctor if you observe: Fever of 101 or Higher, Inability to urinate, Shortness of breath Home Medications: Medications to take at Discharge Apixaban [Eliquis] 5 mg PO BID 12/06/17 Budesonide/Formoterol 160/4.5 [Symbicort 160/4.5 Mcg Inhaler (SP)] 2 puff INHALATION BID 12/06/17 Insulin Glargine,Hum.rec.anlog [Toujeo Solostar] 12 unit SQ TIDCM 12/06/17 Isosorbide Mononitrate [Isosorbide Mononitrate ER] 60 mg PO DAILY 12/06/17 Nitroglycerin 0.4 mg SL Q5M PRN 12/06/17 Simvastatin 40 mg PO QHS 12/06/17 Amiodarone 200 mg PO DAILY 04/21/18 Bumetanide [Bumex] 0.5 mg PO BID 04/21/18 Bumetanide [Bumex] 2 mg PO BID 04/21/18 Carvedilol [Coreg (Beta Mayra)] 3.125 mg PO BID 04/21/18 Hydrocodone/Acetaminophen [[place] 5-325 Tablet] 1 tablet PO TID PRN 04/21/18 Insulin Aspart [Novolog Flexpen] 0 - 100 units SC TIDCM #0 04/21/18 Metoclopramide HCl [Reglan] 5 mg PO TID 04/21/18 Omeprazole 20 mg PO DAILY 04/21/18 Tramadol HCl [Ultram] 50 mg PO Q6H 04/21/18 Trazodone HCl 100 mg PO QHS 04/21/18 Insulin Glargine,Hum.rec.anlog [Lantus] 36 unit SQ QHS 04/22/18 Insulin Glargine,Hum.rec.anlog [Lantus] 50 unit SQ BREAKFAST 04/22/18 Primary Care Physician: Mook Rain MD [Primary Care Provider] - Please follow up with your Primary Care Physician in: in 1-2 weeks Please Follow Up With: Aren Saunders MD When: in 2-3 weeks for CHF, CAD Please Follow Up With: Ynes De La Torre MD When: ESRD on HD IN 2-4 WEEKS Medical Necessity - Tobacco Use Smoking Status: Former smoker - quit in 2001 Tobacco Use: Non-smoker Meaningful Use Info Meaningful Use Diagnoses (Choose all that apply): None applicable Code Visit OBSV E&M: 69174 Observation care discharge
[2018-04-21 11:10] LABS: Bedside Glucose 180 mg/dL (70-110)
--- NOTE | 2018-04-21 12:22 | PCM.PN.HOSP ---
Patient Problems: Active and Suspected Problems HCAP (healthcare-associated pneumonia) (Suspected) Chronic anticoagulation (Acute) Thrombocytopenia (Acute) Substernal chest pain (Acute) Subjective: Seen and examined. Discussed with the nighttime hospitalist. Patient was admitted from [facility] after she had midsternal chest pain while having dialysis yesterday. Exact duration of chest pain unclear but probably 30 minutes as per the patient she denies URI or lower respiratory tract symptoms including cough, fever, tachypnea although she had transient shortness of breath during chest pain. At home she is on 2 L of home oxygen. Chest x-ray reported as having a retrocardiac infiltrate but I do not appreciate on imaging. Pneumonia workup negative including urinary antigens. Sputum culture pending Vitals/I&O's: Vital Signs Temp Pulse Resp BP Pulse Ox 98.2 F 64 18 142/65 H 96 04/21/18 09:42 04/21/18 11:10 04/21/18 09:42 04/21/18 09:42 04/21/18 09:42 Oxygen Flow Rate (L/min) 2.5 Oxygen Delivery Method Nasal Cannula Weight: 202 lb 13.204 oz Body Mass Index (BMI) 30.8 Intake and Output for Last 24 Hours 04/19/18 04/20/18 04/21/18 23:59 23:59 23:59 Intake Total 240 / 240 Balance 240 / 240 General: Alert, Oriented x3, Cooperative HEENT: Atraumatic, PERRLA, EOMI, Normocephalic Neck: Supple, No JVD, Negative Carotid Bruits Lungs: Clear to auscultation, Diminished Cardiovascular: Normal S1, Normal S2, No murmurs, Irregular Rate - PVCs, - - AICD Abdomen: Bowel Sounds Present, Soft, Non Tender, Non-Distended Extremities: Capillary Refill Less than 3 Seconds, Edema Skin: No rashes, No breakdown Musculoskeletal: No Tenderness to Palpation of Joints or Extremities, Arthritic Changes Neurological: Cranial nerves II-XII grossly intact Psych/Mental Status: Normal Affect, Appropriate Microbiology Past 72 Hours 04/21/18 05:28 Urine, Clean Catch Legionella Antigen - Final 04/21/18 05:28 Urine, Clean Catch Streptococcus pneumoniae Antigen (M - Final Laboratory Results 04/21/18 03:36: WBC 6.3, RBC 4.20, Hgb 12.6, Hct 39.9, MCV 95.0, MCH 30.0, MCHC 31.6 L, RDW 15.8 H, RDW Differential 55.5 H, Plt Count 118 L, MPV 9.8, Immature Gran % (Auto) 0.200, Neut % (Auto) 61.3, Lymph % (Auto) 20.2, [place] % (Auto) 12.4 H, Eos % (Auto) 5.6 H, Baso % (Auto) 0.3, Absolute Neuts (auto) 3.9, Absolute Lymphs (auto) 1.27, Total Counted Not Reportable 04/21/18 03:36: Sodium 138, Potassium 3.2 L, Chloride 98, Carbon Dioxide 31.0, Anion Gap 9, BUN 15, Creatinine 2.16 H, Estim Creat Clear Calc 22.35, Est GFR (MDRD) Af Amer 29 L, Est GFR (MDRD) Non-Af 24 L, BUN/Creatinine Ratio 6.9 L, Glucose 112 H, Calcium 8.4 L, Magnesium 1.7 04/21/18 03:36: Phosphorus 2.4 L, Troponin I 0.467 H 04/21/18 05:28: Urine Color Yellow, Urine Clarity Cloudy, Urine pH 5.0, Ur Specific [place] 1.015, Urine Protein 30 H, Urine Glucose (UA) Normal, Urine Ketones Negative, Urine Occult Blood 25 H, Urine Nitrite Negative, Urine Bilirubin Negative, Urine Urobilinogen Normal, Ur Leukocyte Esterase 500 H, Urine RBC 0-5 SEEN, Urine WBC >100 SEEN, Ur Squamous Epith Cells 25-50 SEEN, Ur Transition Epith Cell 5-10 SEEN, Urine Bacteria 1+, Urine Mucus 0 SEEN 04/21/18 06:15: Troponin I 0.568 H 04/21/18 06:53: POC Glucose 127 H 04/21/18 09:15: Troponin I 0.581 H 04/21/18 11:06: POC Glucose 180 H Current Medications Acetaminophen (Tylenol) 650 mg PO Q4H PRN PRN PRN Reason: FEVER Hydrocodone Bitart/Acetaminophen ([place] 5mg-325mg) 1 tablet PO TID PRN PRN Reason: PAIN Albuterol Sulfate (Ventolin Aerosols) 2.5 mg INHALATION Q2H PRN PRN PRN Reason: SHORTNESS OF BREATH Albuterol/Ipratropium (Duoneb) 3 ml INHALATION Q6H.RT ON LICENSE OF [facility] Amiodarone HCl (Cordarone) 200 mg PO DAILY ON [facility] OF [facility] Last Admin: 04/21/18 09:44 Dose: 200 mg Apixaban (Eliquis) 5 mg PO BID ON LICENSE OF [facility] Last Admin: 04/21/18 09:45 Dose: 5 mg Bumetanide (Bumex) 0.5 mg PO BID ON [facility] OF [facility] Last Admin: 04/21/18 09:44 Dose: 0.5 mg Bumetanide (Bumex) 2 mg PO BID ON [facility] OF [facility] Last Admin: 04/21/18 09:44 Dose: 2 mg Carvedilol (Coreg) 3.125 mg PO BID ON LICENSE OF [facility] Last Admin: 04/21/18 09:44 Dose: 3.125 mg Guaifenesin (Mucinex) 1,200 mg PO BID ON LICENSE OF [facility] Last Admin: 04/21/18 09:45 Dose: 1,200 mg Ciprofloxacin (Cipro) 400 mg in 200 mls @ 200 mls/hr IV Q24 ON LICENSE OF [facility] Last Admin: 04/21/18 06:53 Dose: 200 mls/hr Isosorbide Mononitrate (Imdur) 60 mg PO DAILY ON [facility] OF [facility] Last Admin: 04/21/18 09:44 Dose: 60 mg Magnesium Hydroxide (Milk Of Magnesia) 30 ml PO DAILY PRN PRN Reason: Constipation Metoclopramide HCl (Metoclopramide Hcl) 5 mg PO TID ON LICENSE OF [facility] Last Admin: 04/21/18 06:54 Dose: 5 mg Nitroglycerin (Nitrostat) 0.4 mg SUBLINGUAL Q5M PRN PRN Reason: CARDIAC/CHEST PAIN Nutritional Formula (Lactose Free) (Glucerna Shake) 120 ml PO 4X/DAY ON LICENSE OF [facility] Last Admin: 04/21/18 09:45 Dose: Not Given Ondansetron HCl (Zofran) 4 mg IV Q8H PRN PRN PRN Reason: NAUSEA Simvastatin (Zocor) 40 mg PO QHS ON LICENSE OF [facility] Sodium Chloride () 5 - 15 ml IV UD PRN PRN Reason: SALINE FLUSH Sodium Chloride () 5 - 30 ml IV UD PRN PRN Reason: SALINE FLUSH Trazodone HCl (Desyrel) 100 mg PO QHS ON LICENSE OF [facility] Medical Necessity - Tobacco Use Smoking Status: Former smoker - quit in 2001 Tobacco Use: Non-smoker Assessment/Plan All Active Problems Chronic anticoagulation (Acute) Thrombocytopenia (Acute) Substernal chest pain (Acute) The patient is a 77 year old F with a PMH of DM II, HTN, HLD, CAD, CABG, PVD, PM/AICD, systolic CHF, ESRD on HD, AF, chronic anticoagulation and chronic respiratory failure with hypoxemia was admitted from [facility] after she had midsternal chest pain while having dialysis on 04/20/2018. Exact duration of chest pain unclear but probably 30 minutes as per the patient she denies URI or lower respiratory tract symptoms including cough, fever, tachypnea although she had transient shortness of breath during chest pain. At home she is on 2 L of home oxygen. Chest x-ray reported as having a retrocardiac infiltrate but I do not appreciate on imaging. Pneumonia workup negative including urinary antigens. Sputum culture pending Prior to that, she was in [facility] for chest pain but she did not had any cardiac imaging testing including stress or cath. From there she was discharged to [facility] from where she is recently discharged to home 1. Atypical chest pain with history of coronary artery disease status post CABG and PTCA: Patient is currently admitted in PCU. Problems are mildly elevated 0.467, 0.568 0.58; flat and indeterminant probably from other comorbidities including CHF, pulmonary hypertension and ESRD on hemodialysis. Discussed with her security software engineer, Dr. Fam. According to him, she had recent echo in December 2017 showed EF 50% with severe pulmonary hypertension. She had last Lexiscan nuclear stress test in July 2017 which reported as EF 50% with no evidence of ischemia but previous apical infarct cannot be excluded. After discussion with Dr. Fam, it is agreed for repeat nuclear stress test tomorrow a.m. 2. Concern for HCAP: I do not appreciate signs and symptoms of pneumonia. Urinary antigens for strep and Legionella are negative. Empirically, she had Levaquin and vancomycin [facility] does not need antibiotic today. Follow-up blood culture and sputum culture. pneumonia ruled out. Retrocardiac infiltrate most probably from atelectasis. 3. Diabetes mellitus type 2: Continue home dose of Lantus. Accu-Cheks before meals and at bedtime cover with NovoLog sliding scale. Other multiple comorbidities include hypertension, dyslipidemia, chronic A. fib on Eliquis, COPD, PVD with chronic hypoxic respiratory failure, chronic systolic heart failure and severe pulmonary hypertension. DVT prophylaxis: On Eliquis Advanced directive/end-of-life care: Discussed with the patient and patient's daughter, Ms. Pratima Soliman who is the power of patent prosecution attorney. Discussed with the different options of advanced directive including DNR CC, DNR CC arrest and full code. Patient and her daughter wants no chest compression/CPR, intubation, ventilator support or feeding tube. She agreed for DNR CC arrest with no intubation. Total time spent in [id number] encounter: 18 minutes Code Visit Procedures: 84008 Advncd Care Plan 30 Min
--- NOTE | 2018-04-21 12:39 | PN_ITS ---
Patient Problems: Active and Suspected Problems HCAP (healthcare-associated pneumonia) (Suspected) Chronic anticoagulation (Acute) Thrombocytopenia (Acute) Substernal chest pain (Acute) Subjective: Seen and examined. Discussed with the nighttime hospitalist. Patient was admitted from [facility] after she had midsternal chest pain while having dialysis yesterday. Exact duration of chest pain unclear but probably 30 minutes as per the patient she denies URI or lower respiratory tract symptoms including cough, fever, tachypnea although she had transient shortness of breath during chest pain. At home she is on 2 L of home oxygen. Chest x-ray reported as having a retrocardiac infiltrate but I do not appreciate on imaging. Pneumonia workup negative including urinary antigens. Sputum culture pending Vitals/I&O's: Vital Signs Temp Pulse Resp BP Pulse Ox 98.2 F 64 18 142/65 H 96 04/21/18 09:42 04/21/18 11:10 04/21/18 09:42 04/21/18 09:42 04/21/18 09:42 Oxygen Flow Rate (L/min) 2.5 Oxygen Delivery Method Nasal Cannula Weight: 202 lb 13.204 oz Body Mass Index (BMI) 30.8 Intake and Output for Last 24 Hours 04/19/18 04/20/18 04/21/18 23:59 23:59 23:59 Intake Total 240 / 240 Balance 240 / 240 General: Alert, Oriented x3, Cooperative HEENT: Atraumatic, PERRLA, EOMI, Normocephalic Neck: Supple, No JVD, Negative Carotid Bruits Lungs: Clear to auscultation, Diminished Cardiovascular: Normal S1, Normal S2, No murmurs, Irregular Rate - PVCs, - - AICD Abdomen: Bowel Sounds Present, Soft, Non Tender, Non-Distended Extremities: Capillary Refill Less than 3 Seconds, Edema Skin: No rashes, No breakdown Musculoskeletal: No Tenderness to Palpation of Joints or Extremities, Arthritic Changes Neurological: Cranial nerves II-XII grossly intact Psych/Mental Status: Normal Affect, Appropriate Microbiology Past 72 Hours 04/21/18 05:28 Urine, Clean Catch Legionella Antigen - Final 04/21/18 05:28 Urine, Clean Catch Streptococcus pneumoniae Antigen (M - Final Laboratory Results 04/21/18 03:36: WBC 6.3, RBC 4.20, Hgb 12.6, Hct 39.9, MCV 95.0, MCH 30.0, MCHC 31.6 L, RDW 15.8 H, RDW Differential 55.5 H, Plt Count 118 L, MPV 9.8, Immature Gran % (Auto) 0.200, Neut % (Auto) 61.3, Lymph % (Auto) 20.2, [place] % (Auto) 12.4 H, Eos % (Auto) 5.6 H, Baso % (Auto) 0.3, Absolute Neuts (auto) 3.9, Absolute Lymphs (auto) 1.27, Total Counted Not Reportable 04/21/18 03:36: Sodium 138, Potassium 3.2 L, Chloride 98, Carbon Dioxide 31.0, Anion Gap 9, BUN 15, Creatinine 2.16 H, Estim Creat Clear Calc 22.35, Est GFR ( MDRD) Af Amer 29 L, Est GFR (MDRD) Non-Af 24 L, BUN/Creatinine Ratio 6.9 L, Glucose 112 H, Calcium 8.4 L, Magnesium 1.7 04/21/18 03:36: Phosphorus 2.4 L, Troponin I 0.467 H 04/21/18 05:28: Urine Color Yellow, Urine Clarity Cloudy, Urine pH 5.0, Ur Specific [place] 1.015, Urine Protein 30 H, Urine Glucose (UA) Normal, Urine Ketones Negative, Urine Occult Blood 25 H, Urine Nitrite Negative, Urine Bilirubin Negative, Urine Urobilinogen Normal, Ur Leukocyte Esterase 500 H, Urine RBC 0-5 SEEN, Urine WBC >100 SEEN, Ur Squamous Epith Cells 25-50 SEEN, Ur Transition Epith Cell 5-10 SEEN, Urine Bacteria 1+, Urine Mucus 0 SEEN 04/21/18 06:15: Troponin I 0.568 H 04/21/18 06:53: POC Glucose 127 H 04/21/18 09:15: Troponin I 0.581 H 04/21/18 11:06: POC Glucose 180 H Current Medications Acetaminophen (Tylenol) 650 mg PO Q4H PRN PRN PRN Reason: FEVER Hydrocodone Bitart/Acetaminophen ([place] 5mg-325mg) 1 tablet PO TID PRN PRN Reason: PAIN Albuterol Sulfate (Ventolin Aerosols) 2.5 mg INHALATION Q2H PRN PRN PRN Reason: SHORTNESS OF BREATH Albuterol/Ipratropium (Duoneb) 3 ml INHALATION Q6H.RT [facility] Amiodarone HCl (Cordarone) 200 mg PO DAILY [facility] Last Admin: 04/21/18 09:44 Dose: 200 mg Apixaban (Eliquis) 5 mg PO BID [facility] Last Admin: 04/21/18 09:45 Dose: 5 mg Bumetanide (Bumex) 0.5 mg PO BID [facility] Last Admin: 04/21/18 09:44 Dose: 0.5 mg Bumetanide (Bumex) 2 mg PO BID [facility] Last Admin: 04/21/18 09:44 Dose: 2 mg Carvedilol (Coreg) 3.125 mg PO BID [facility] Last Admin: 04/21/18 09:44 Dose: 3.125 mg Guaifenesin (Mucinex) 1,200 mg PO BID [facility] Last Admin: 04/21/18 09:45 Dose: 1,200 mg Ciprofloxacin (Cipro) 400 mg in 200 mls @ 200 mls/hr IV Q24 [facility] Last Admin: 04/21/18 06:53 Dose: 200 mls/hr Isosorbide Mononitrate (Imdur) 60 mg PO DAILY [facility] Last Admin: 04/21/18 09:44 Dose: 60 mg Magnesium Hydroxide (Milk Of Magnesia) 30 ml PO DAILY PRN PRN Reason: Constipation Metoclopramide HCl (Metoclopramide Hcl) 5 mg PO TID [facility] Last Admin: 04/21/18 06:54 Dose: 5 mg Nitroglycerin (Nitrostat) 0.4 mg SUBLINGUAL Q5M PRN PRN Reason: CARDIAC/CHEST PAIN Nutritional Formula (Lactose Free) (Glucerna Shake) 120 ml PO 4X/DAY [facility] Last Admin: 04/21/18 09:45 Dose: Not Given Ondansetron HCl (Zofran) 4 mg IV Q8H PRN PRN PRN Reason: NAUSEA Simvastatin (Zocor) 40 mg PO QHS [facility] Sodium Chloride () 5 - 15 ml IV UD PRN PRN Reason: SALINE FLUSH Sodium Chloride () 5 - 30 ml IV UD PRN PRN Reason: SALINE FLUSH Trazodone HCl (Desyrel) 100 mg PO QHS [facility] Medical Necessity - Tobacco Use Smoking Status: Former smoker - quit in 2001 Tobacco Use: Non-smoker Assessment/Plan All Active Problems Chronic anticoagulation (Acute) Thrombocytopenia (Acute) Substernal chest pain (Acute) The patient is a 77 year old F with a PMH of DM II, HTN, HLD, CAD, CABG, PVD, PM /AICD, systolic CHF, ESRD on HD, AF, chronic anticoagulation and chronic respiratory failure with hypoxemia was admitted from [facility] after she had midsternal chest pain while having dialysis on 04/20/2018. Exact duration of chest pain unclear but probably 30 minutes as per the patient she denies URI or lower respiratory tract symptoms including cough, fever, tachypnea although she had transient shortness of breath during chest pain. At home she is on 2 L of home oxygen. Chest x-ray reported as having a retrocardiac infiltrate but I do not appreciate on imaging. Pneumonia workup negative including urinary antigens. Sputum culture pending Prior to that, she was in [facility] for chest pain but she did not had any cardiac imaging testing including stress or cath. From there she was discharged to [facility] from where she is recently discharged to home 1. Atypical chest pain with history of coronary artery disease status post CABG and PTCA: Patient is currently admitted in PCU. Problems are mildly elevated 0.467, 0.568 0.58; flat and indeterminant probably from other comorbidities including CHF, pulmonary hypertension and ESRD on hemodialysis. Discussed with her plating equipment tender, Dr. Fam. According to him, she had recent echo in December 2017 showed EF 50% with severe pulmonary hypertension. She had last Lexiscan nuclear stress test in July 2017 which reported as EF 50% with no evidence of ischemia but previous apical infarct cannot be excluded. After discussion with Dr. Fam, it is agreed for repeat nuclear stress test tomorrow a.m. 2. Concern for HCAP: I do not appreciate signs and symptoms of pneumonia. Urinary antigens for strep and Legionella are negative. Empirically, she had Levaquin and vancomycin [facility] does not need antibiotic today. Follow-up blood culture and sputum culture. pneumonia ruled out. Retrocardiac infiltrate most probably from atelectasis. 3. Diabetes mellitus type 2: Continue home dose of Lantus. Accu-Cheks before meals and at bedtime cover with NovoLog sliding scale. Other multiple comorbidities include hypertension, dyslipidemia, chronic A. fib on Eliquis, COPD, PVD with chronic hypoxic respiratory failure, chronic systolic heart failure and severe pulmonary hypertension. DVT prophylaxis: On Eliquis Advanced directive/end-of-life care: Discussed with the patient and patient's daughter, Ms. Pratima Soliman who is the power of patent attorney. Discussed with the different options of advanced directive including DNR CC, DNR CC arrest and full code. Patient and her daughter wants no chest compression/CPR, intubation , ventilator support or feeding tube. She agreed for DNR CC arrest with no intubation. Total time spent in [id number] encounter: 18 minutes Code Visit Procedures: 16126 Advncd Care Plan 30 Min
[2018-04-21] MEDS: Ipratropium/Albuterol Sulfate 3 ML AMPUL.NEB INHALATION ×2 (13:16→19:26)
[2018-04-21 16:15] LABS: Bedside Glucose 224 mg/dL (70-110)
--- NOTE | 2018-04-21 19:11 | PCM.PROGNOTE ---
Patient Problems: Active and Suspected Problems HCAP (healthcare-associated pneumonia) (Suspected) Chronic anticoagulation (Acute) Thrombocytopenia (Acute) Substernal chest pain (Acute) Subjective: 77-year-old female admitted to the hospital with suspected HCAP and chest pain. Objective: General: alert, oriented X3, NAD, appropriate with normal affect Neck: supple, trachea midline, carotids have brisk upstroke and normal pulse volume, no JVD, no carotid bruits Lungs: CTA, symmetric chest expansion, not tachypneic, able to lie flat with no respiratory distress Heart: Regular rate and rhythm, normal S1, normal S2, no murmur, no gallop, no rub, PMI is on the midclavicular line Abdomen: soft, NT, ND, BS's present Extremities: no edema, no calf tenderness, peripheral pulses are normal - Physical Exam Vital Signs Temp Pulse Resp BP Pulse Ox 98.1 F 65 18 133/66 H 98 04/21/18 17:22 04/21/18 17:22 04/21/18 17:22 04/21/18 17:22 04/21/18 17:22 Oxygen Flow Rate (L/min) 2 Oxygen Delivery Method Nasal Cannula Weight: 202 lb 13.204 oz Body Mass Index (BMI) 30.8 Intake and Output for Last 24 Hours 04/19/18 04/20/18 04/21/18 23:59 23:59 23:59 Intake Total 600 / 600 Output Total 250 / 250 Balance 350 / 350 Microbiology Past 72 Hours 04/21/18 07:40 Gram Stain - Final Sputum, Expectorated/Coughed Respiratory Culture - Final 04/21/18 05:28 Legionella Antigen - Final Urine, Clean Catch 04/21/18 05:28 Streptococcus pneumoniae Antigen (M - Final Urine, Clean Catch Laboratory Tests Past 24 Hrs 04/21/18 04/21/18 04/21/18 03:36 03:36 03:36 WBC 6.3 RBC 4.20 Hgb 12.6 Hct 39.9 MCV 95.0 MCH 30.0 MCHC 31.6 L RDW 15.8 H RDW Differential 55.5 H Plt Count 118 L MPV 9.8 Immature Gran % (Auto) 0.200 Neut % (Auto) 61.3 Lymph % (Auto) 20.2 [place] % (Auto) 12.4 H Eos % (Auto) 5.6 H Baso % (Auto) 0.3 Absolute Neuts (auto) 3.9 Absolute Lymphs (auto) 1.27 Total Counted Not Reportable Sodium 138 Potassium 3.2 L Chloride 98 Carbon Dioxide 31.0 Anion Gap 9 BUN 15 Creatinine 2.16 H Estim Creat Clear Calc 22.35 Est GFR (MDRD) Af Amer 29 L Est GFR (MDRD) Non-Af 24 L BUN/Creatinine Ratio 6.9 L Glucose 112 H Calcium 8.4 L Phosphorus 2.4 L Magnesium 1.7 Troponin I 0.467 H Urine Color Urine Clarity Urine pH Ur Specific [place] Urine Protein Urine Glucose (UA) Urine Ketones Urine Occult Blood Urine Nitrite Urine Bilirubin Urine Urobilinogen Ur Leukocyte Esterase Urine RBC Urine WBC Ur Squamous Epith Cells Ur Transition Epith Cell Urine Bacteria Urine Mucus 04/21/18 04/21/18 04/21/18 05:28 06:15 09:15 WBC RBC Hgb Hct MCV MCH MCHC RDW RDW Differential Plt Count MPV Immature Gran % (Auto) Neut % (Auto) Lymph % (Auto) [place] % (Auto) Eos % (Auto) Baso % (Auto) Absolute Neuts (auto) Absolute Lymphs (auto) Total Counted Sodium Potassium Chloride Carbon Dioxide Anion Gap BUN Creatinine Estim Creat Clear Calc Est GFR (MDRD) Af Amer Est GFR (MDRD) Non-Af BUN/Creatinine Ratio Glucose Calcium Phosphorus Magnesium Troponin I 0.568 H 0.581 H Urine Color Yellow Urine Clarity Cloudy Urine pH 5.0 Ur Specific [place] 1.015 Urine Protein 30 H Urine Glucose (UA) Normal Urine Ketones Negative Urine Occult Blood 25 H Urine Nitrite Negative Urine Bilirubin Negative Urine Urobilinogen Normal Ur Leukocyte Esterase 500 H Urine RBC 0-5 SEEN Urine WBC >100 SEEN Ur Squamous Epith Cells 25-50 SEEN Ur Transition Epith Cell 5-10 SEEN Urine Bacteria 1+ Urine Mucus 0 SEEN POC Glucose 04/21/18 04/21/18 04/21/18 16:13 11:06 06:53 POC Glucose 224 H 180 H 127 H Medical Necessity - Tobacco Use Smoking Status: Former smoker - quit in 2001 Tobacco Use: Non-smoker Assessment/Plan All Active Problems Chronic anticoagulation (Acute) Thrombocytopenia (Acute) Substernal chest pain (Acute) Impressions 1. ? HCAP - afebrile with a normal WBC count at [place] [facility]. minimal cough with no SOB and does not appear ill. Her complaint at presentation to the ER was substernal chest pain and lightheadedness. I do not think she has PNA. 2. chest pain in a pt with hx of CAD, CABG and PTCA's 3. DM II 4. HTN 5. HLD 6. AF 7. chronic anticoagulation 8. COPD 9. PVD 10. chronic respiratory failure with hypoxemia 11. chronic systolic CHF 12. Venous insufficiency - long standing 13. former smoker Admit for observation Obtain a PA and Lateral CXR in the AM She got 750 mg of Levaquin and 1 GM of Vancomycin at [place] so there is no need to start antibiotics tonight.....bharti since I am not sure she even has HCAP Obtain records from [facility] and Dr. Michael cardona If she is still in the hospital on Wednesday will need to consult [facility] for HD....Dr. Martin is her home therapy clinician Serial CE's EKG now IS Aerosols Continue the Apixaban obtain a medication reconciliation Blood cultures Urine for Legionella and streptococcal antigens Sputum culture
--- NOTE | 2018-04-21 20:42 | NURSING ---
Upon placing order for SSI, pop up for latex allergy was preventing me from placing order. Spoke to Kevin in pharmacy, he stated humalog SSI does not contain latex and I was ok to place order.
--- NOTE | 2018-04-21 20:46 | EKG12_ITS ---
Test Reason : CHEST PAIN Blood Pressure : / mmHG Vent. Rate : 066 BPM Atrial Rate : 068 BPM P-R Int : 000 ms QRS Dur : 202 ms QT Int : 570 ms P-R-T Axes : 000 -79 100 degrees QTc Int : 597 ms Ventricular-paced rhythm Abnormal ECG Confirmed by KEARA COLLIER, AYDE ([id number]), publication editor JASON OSORIO ([id number] on 04/28/2018 2:15:31 PM Referred By: PRETTY Confirmed By:AYDE SARAH MD
[2018-04-21] MEDS: HYDROcodone Bitartrate/Apap 5/325 Tablet PO (21:20)
[2018-04-21] MEDS: traZODone 100 MG Tablet PO (22:27)
[2018-04-21] MEDS: Acetaminophen 325 MG Tablet 650 MG PO (22:27)
[2018-04-21] MEDS: Insulin Lispro 100 UNIT/ML INSULN.PEN SC (22:34)
[2018-04-21 23:21] LABS: Bedside Glucose 248 mg/dL (70-110)
[2018-04-22] VITALS (9 sets, daily range): BP systolic 104–151; BP diastolic 47–85; PULSE 63–77; RESP 14–18; TEMP 36.4–36.6; O2SAT 95–99
[2018-04-22] MEDS: Metoclopramide 5 MG TABLET PO ×2 (05:29→13:30)
[2018-04-22 05:48] LABS: Absolute Lymphocyte Count 0.98 X10^3/ul (0.83-4.51); Absolute Neutrophil Count 3.7 X10^3/uL (2.0-7.7); Basophil# 0.05 X10^3/uL; Basophil% 0.9 % (0-1); Eosinophil# 0.32 X10^3/uL; Eosinophils% 5.6 % (0-5); Hematocrit 39.1 % (37-47); Hemoglobin 12.3 g/dl (12.0-15.0); Lymphocyte # 0.98 X10^3/ul (4.0); Lymphocyte % 17.2 % (19-41); Mean Corp Hgb Conc 31.5 g/gl (32-36); Mean Corpuscular Hgb 30.4 pg (27.0-32.0); Mean Corpuscular Volume 96.5 fL (81-99); Mean Platelet Vol. 9.9 fl (6.2-12.0); Monocyte# 0.66 X10^3/uL; Monocyte% 11.6 % (0-10); Neutrophil # 3.68 X10^3/uL (2.7-7.7); Neutrophil % 64.5 % (47-70); Platelet Count 121 K/mm3 (150-450); RBC Distribution Width CV 15.6 % (11.6-14.6); RBC Distribution Width SD 54.4 fl (35.1-43.9); Red Blood Count 4.05 M/mm3 (4.2-5.4); White Blood Count 5.7 K/mm3 (4.4-11.0)
[2018-04-22 05:52] LABS: International Normalized Ratio 1.8; Prothrombin Time (Protime)PT. 20.7 SECONDS (11.7-14.9)
[2018-04-22 05:53] LABS: POSITIVE COUNT NO; POSITIVE DIFFERENTIAL NO; POSITIVE MORPHOLOGY NO; Partial Thromboplast Time 34.9 Seconds (24.1-36.2)
--- NOTE | 2018-04-22 05:55 | EKG12_ITS ---
Test Reason : AM EKG Blood Pressure : / mmHG Vent. Rate : 066 BPM Atrial Rate : 070 BPM P-R Int : 000 ms QRS Dur : 218 ms QT Int : 574 ms P-R-T Axes : 000 -77 104 degrees QTc Int : 601 ms Ventricular-paced rhythm Abnormal ECG Confirmed by KEARA COLLIER, AYDE ([id number]), electronic news gathering editor JASON OSORIO ([id number]) on 04/28/2018 2:15:09 PM Referred By: PRETTY Confirmed By:AYDE SARAH MD
[2018-04-22 06:23] LABS: Anion Gap 8 (5-15); BUN 24 mg/dL (7-18); BUN/Creat Ratio 8.3 RATIO (10-20); Calcium,Total 8.9 mg/dL (8.5-10.1); Chloride 96 mmol/L (98-107); Creatinine, Serum 2.88 mg/dL (0.55-1.02); EST Glomerular Filtration Rate 17 mL/min (>60); Est Glom Filt Rate - Afr Amer 20 mL/min (>60); Estimated Creatinine Clearance 16.76 ml/min; Glucose 190 mg/dL (74-106); Magnesium 1.8 mg/dL (1.6-2.6); Potassium 3.9 mmol/L (3.5-5.1); Sodium Level 139 mmol/L (136-145)
[2018-04-22 07:05] LABS: Bedside Glucose 193 mg/dL (70-110)
--- NOTE | 2018-04-22 09:01 | STRESSREP ---
Stress Test Report Pharmacologic myocardial perfusion stress test. 77-year-old lady with a history of cardiomyopathy coronary artery disease status post ICD implantation who presents with chest pain and abnormal cardiac enzymes. Medications amiodarone Eliquis Bumex Coreg isosorbide. Stress protocol: Resting EKG demonstrates atrial fibrillation with a ventricular paced rhythm at 62 bpm. Resting blood pressure is 142/70 mmHg. 0.4 mg of regadenoson was infused per usual protocol followed by Intravenous saline flush injection continuous EKG monitoring was performed to the patient maintained sinus rhythm throughout the recording with occasional premature ventricular complexes. The maximum heart rate attained was 98 bpm which was 68% of maximum predicted heart rate. The maximum workload was 1 metabolic equivalent. At rest there were no ST or T-wave changes noted suggest abnormal flow reserve left ventricular pacing activity was noted. Myocardial perfusion protocol. 14.5 mCi of technetium 99m sestamibi was injected at rest. 0.4 mg of regadenoson was infused per usual protocol. At peak infusion 44.8 mCi of technetium 99m sestamibi was injected stress images were obtained stress and rest images were reconstructed and compared in the short axis vertical long and horizontal long axis. Gated images were also obtained. Perfusion SPECT analysis: Review of the stress images demonstrate normal uptake of tracer noted in the basal and mid anterior wall there is a small defect noted at the apex, and a medium-sized defect noted in the basal inferoseptal wall. The resting images demonstrate a similar patent with no obvious ischemia noted. The above is suggestive of a previous apical infarct as well as basal inferior septal infarct. Mild farrah-infarct ischemia cannot be completely excluded. Gated SPECT analysis: The gated ejection fraction is 49% with apical dyskinesis present. Conclusion: Pharmacologic myocardial perfusion stress test with no obvious ischemia noted. Apical infarct present. Basal inferior septal infarct present. Ischemic cardiomyopathy present.
--- NOTE | 2018-04-22 10:00 | PCM.DC ---
- Discharge Diagnoses Current Active Problems: Current Active and Chronic Problems Hypertension (Chronic) Hyperlipidemia (Chronic) Type 2 diabetes mellitus (Chronic) COPD (chronic obstructive pulmonary disease) (Chronic) Chronic hypoxemic respiratory failure (Chronic) Chronic anticoagulation (Acute) Atrial fibrillation (Chronic) Coronary artery disease (Chronic) 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) End stage renal disease (Chronic) Diabetic neuropathy (Chronic) Peripheral vascular disease (Chronic) Venous insufficiency of both lower extremities (Chronic) Congestive heart failure (Chronic) Thrombocytopenia (Acute) Substernal chest pain (Acute) History of coronary artery bypass graft (Chronic) 2013 History of PTCA (Chronic) 6 stents per patient You will use the following diet at home:: Calorie/Carbohydrate Controlled (specify 1200, 1400, etc) - 1800 ADA diet, Cardiac Discharge Activity: May Not Drive Call your doctor if you observe: Fever of 101 or Higher, Inability to urinate, Shortness of breath Allergies/Adverse Reactions: Allergies latex Allergy (Verified 04/21/18 03:41) Anaphylaxis meperidine [From Demerol] Allergy (Verified 04/21/18 03:40) Hives Penicillins Allergy (Verified 12/06/17 20:05) Hives Tetracyclines Allergy (Verified 12/06/17 20:05) Hives aspirin Adverse Reaction (Verified 04/21/18 04:35) Unknown atorvastatin Adverse Reaction (Verified 04/21/18 04:35) Unknown codeine Adverse Reaction (Verified 04/21/18 04:35) Unknown hydromorphone [From Dilaudid] Adverse Reaction (Verified 04/21/18 04:35) Unknown pentazocine Adverse Reaction (Verified 04/21/18 04:35) Unknown pioglitazone Adverse Reaction (Verified 04/21/18 04:35) Unknown propoxyphene Adverse Reaction (Verified 04/21/18 04:35) Unknown sulfamethoxazole [From Bactrim] Adverse Reaction (Verified 04/21/18 04:35) Unknown trimethoprim [From Bactrim] Adverse Reaction (Verified 04/21/18 04:35) Unknown Medications to take at Discharge Apixaban [Eliquis] 5 mg PO BID 12/06/17 Budesonide/Formoterol 160/4.5 [Symbicort 160/4.5 Mcg Inhaler (SP)] 2 puff INHALATION BID 12/06/17 Insulin Glargine,Hum.rec.anlog [Toujeo Solostar] 12 unit SQ TIDCM 12/06/17 Isosorbide Mononitrate [Isosorbide Mononitrate ER] 60 mg PO DAILY 12/06/17 Nitroglycerin 0.4 mg SL Q5M PRN 12/06/17 Simvastatin 40 mg PO QHS 12/06/17 Amiodarone 200 mg PO DAILY 04/21/18 Bumetanide [Bumex] 0.5 mg PO BID 04/21/18 Bumetanide [Bumex] 2 mg PO BID 04/21/18 Carvedilol [Coreg (Beta Mayra)] 3.125 mg PO BID 04/21/18 Hydrocodone/Acetaminophen [[place] 5-325 Tablet] 1 tablet PO TID PRN 04/21/18 Insulin Aspart [Novolog Flexpen] 0 - 100 units SC TIDCM #0 04/21/18 Metoclopramide HCl [Reglan] 5 mg PO TID 04/21/18 Omeprazole 20 mg PO DAILY 04/21/18 Tramadol HCl [Ultram] 50 mg PO Q6H 04/21/18 Trazodone HCl 100 mg PO QHS 04/21/18 Insulin Glargine,Hum.rec.anlog [Lantus] 36 unit SQ QHS 04/22/18 Insulin Glargine,Hum.rec.anlog [Lantus] 50 unit SQ BREAKFAST 04/22/18 Primary Care Physician: Mook Rain MD [Primary Care Provider] - Please follow up with your Primary Care Physician in: in 1-2 weeks Test Results: Test results from this visit will be discussed in further detail at your follow-up appointment, if applicable. Please Follow Up With: Aren Saunders MD When: in 2-3 weeks for CHF, CAD Please Follow Up With: Ynes De La Torre MD When: ESRD on HD IN 2-4 WEEKS
--- NOTE | 2018-04-22 10:18 | PCM.CONS.R ---
Problem List (1) End stage renal disease Status: Chronic Consultation - Renal 04/22/18 PCP/ Referring MD: Requesting physician: Dr Mackey Primary care physician: Mook Rain, Reason for Consultation:: ESRD - History of Present Illness History of Present Illness: The patient is a 77 year old F well known to us. she has known history of CKD stage 3 with baseline creatinine around 1.5 as of January 2018. In february she was admitted at [facility] [place] with CHF, diuresis was attempted but she had dense renal failure and ended up on dialysis. Since starting dialysis, she has lost about 25 kg of fluid weight over the last 2 months. Has some urine output but creatinine was in 4s as of last month she presented to hospital with chest pain, worse with local palpation and movements. breathing is ok - Allergies Allergies: Allergies latex Allergy (Verified 04/21/18 03:41) Anaphylaxis meperidine [From Demerol] Allergy (Verified 04/21/18 03:40) Hives Penicillins Allergy (Verified 12/06/17 20:05) Hives Tetracyclines Allergy (Verified 12/06/17 20:05) Hives aspirin Adverse Reaction (Verified 04/21/18 04:35) Unknown atorvastatin Adverse Reaction (Verified 04/21/18 04:35) Unknown codeine Adverse Reaction (Verified 04/21/18 04:35) Unknown hydromorphone [From Dilaudid] Adverse Reaction (Verified 04/21/18 04:35) Unknown pentazocine Adverse Reaction (Verified 04/21/18 04:35) Unknown pioglitazone Adverse Reaction (Verified 04/21/18 04:35) Unknown propoxyphene Adverse Reaction (Verified 04/21/18 04:35) Unknown sulfamethoxazole [From Bactrim] Adverse Reaction (Verified 04/21/18 04:35) Unknown trimethoprim [From Bactrim] Adverse Reaction (Verified 04/21/18 04:35) Unknown - Current Medications Current Medications: Current Medications Acetaminophen (Tylenol) 650 mg PO Q4H PRN PRN PRN Reason: FEVER Last Admin: 04/21/18 22:27 Dose: 650 mg Hydrocodone Bitart/Acetaminophen ([place] 5mg-325mg) 1 tablet PO TID PRN PRN Reason: PAIN Last Admin: 04/21/18 21:20 Dose: 1 tablet Albuterol Sulfate (Ventolin Aerosols) 2.5 mg INHALATION Q2H PRN PRN PRN Reason: SHORTNESS OF BREATH Albuterol/Ipratropium (Duoneb) 3 ml INHALATION Q6H.RT COUNT INCLUDES THE [facility] Last Admin: 04/22/18 07:02 Dose: Not Given Amiodarone HCl (Cordarone) 200 mg PO DAILY COUNT INCLUDES THE [facility] Last Admin: 04/21/18 09:44 Dose: 200 mg Apixaban (Eliquis) 5 mg PO BID COUNT INCLUDES THE [facility] Last Admin: 04/21/18 22:27 Dose: 5 mg Bumetanide (Bumex) 0.5 mg PO BID COUNT INCLUDES THE [facility] Last Admin: 04/21/18 23:39 Dose: 0.5 mg Bumetanide (Bumex) 2 mg PO BID COUNT INCLUDES THE [facility] Last Admin: 04/21/18 23:38 Dose: 2 mg Carvedilol (Coreg) 3.125 mg PO BID COUNT INCLUDES THE [facility] Last Admin: 04/21/18 23:39 Dose: 3.125 mg Guaifenesin (Mucinex) 1,200 mg PO BID COUNT INCLUDES THE [facility] Last Admin: 04/21/18 22:27 Dose: 1,200 mg Ciprofloxacin (Cipro) 400 mg in 200 mls @ 200 mls/hr IV Q24 COUNT INCLUDES THE [facility] Last Admin: 04/21/18 06:53 Dose: 200 mls/hr Insulin Human Lispro (Humalog Kwikpen (Bkc)) 0 unit SC ACHS COUNT INCLUDES THE [facility] PRN Reason: Protocol Last Admin: 04/21/18 22:34 Dose: 2 u Isosorbide Mononitrate (Imdur) 60 mg PO DAILY COUNT INCLUDES THE [facility] Last Admin: 04/21/18 09:44 Dose: 60 mg Magnesium Hydroxide (Milk Of Magnesia) 30 ml PO DAILY PRN PRN Reason: Constipation Metoclopramide HCl (Metoclopramide Hcl) 5 mg PO TID COUNT INCLUDES THE [facility] Last Admin: 04/22/18 05:29 Dose: 5 mg Nitroglycerin (Nitrostat) 0.4 mg SUBLINGUAL Q5M PRN PRN Reason: CARDIAC/CHEST PAIN Last Admin: 04/21/18 21:01 Dose: 0.4 mg Ondansetron HCl (Zofran) 4 mg IV Q8H PRN PRN PRN Reason: NAUSEA Simvastatin (Zocor) 40 mg PO QHS COUNT INCLUDES THE [facility] Last Admin: 04/21/18 22:28 Dose: 40 mg Sodium Chloride () 5 - 15 ml IV UD PRN PRN Reason: SALINE FLUSH Sodium Chloride () 5 - 30 ml IV UD PRN PRN Reason: SALINE FLUSH Trazodone HCl (Desyrel) 100 mg PO QHS COUNT INCLUDES THE [facility] Last Admin: 04/21/18 22:27 Dose: 100 mg - Past Medical History Past Medical History (Chronic Problems): Chronic Problems Hypertension (Chronic) Hyperlipidemia (Chronic) Type 2 diabetes mellitus (Chronic) COPD (chronic obstructive pulmonary disease) (Chronic) Chronic hypoxemic respiratory failure (Chronic) Atrial fibrillation (Chronic) Coronary artery disease (Chronic) 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) End stage renal disease (Chronic) Diabetic neuropathy (Chronic) Peripheral vascular disease (Chronic) Venous insufficiency of both lower extremities (Chronic) Congestive heart failure (Chronic) History of coronary artery bypass graft (Chronic) 2013 History of PTCA (Chronic) 6 stents per patient - Past Surgical History Surgical History: angioplasty - has had a total of 6 stents, cholecystectomy, coronary bypass surgery - 2013, hysterectomy - for DUB, pacemaker implantation - AICD/PM, - - Social History Smoking Status: Former smoker - quit in 2001 Alcohol: Rare Drugs: None - Family History Maternal History Items: No pertinent history Paternal History Items: No pertinent history Review of Systems Constitutional: Denies: Chills, Fever, Weight Change HEENT: Denies: Head Aches, Sinus Congestion, Sinus Drainage Cardiovascular: Denies: Chest Pain, Palpitations Respiratory: Denies: Cough, Shortness of breath at rest, Sputum production Gastrointestinal: Denies: Abdominal Pain, Nausea, Vomiting Genitourinary: Denies: Dysuria Musculoskeletal: Denies: Joint Pain, Joint Tenderness Skin: Denies: Rash, Wounds Neurological: Denies: Numbness, Tingling, Focal weakness Psychiatric: Denies: Anxiety, Depression, Homicidal Ideations, Suicidal Ideations Hematologic/ Lymphatic: Denies: Easy Bruising, Easy Bleeding Patient Problems: Active and Suspected Problems HCAP (healthcare-associated pneumonia) (Suspected) Chronic anticoagulation (Acute) Thrombocytopenia (Acute) Substernal chest pain (Acute) - Physical Exam General: Alert, Oriented x3, Cooperative HEENT: Atraumatic, PERRLA, EOMI, Normocephalic Neck: Supple, No JVD, Negative Carotid Bruits Lungs: Clear to auscultation, Normal air movement Cardiovascular: Regular rate, No murmurs Abdomen: Bowel Sounds Present, Soft, Non Tender Extremities: No edema, Capillary Refill Less than 3 Seconds Skin: No rashes, No breakdown Musculoskeletal: No Tenderness to Palpation of Joints or Extremities Neurological: Cranial nerves II-XII grossly intact Psych/Mental Status: Normal Affect, Appropriate Vital Signs Temp Pulse Resp BP Pulse Ox 97.8 F 64 18 151/73 H 99 04/22/18 09:10 04/22/18 09:10 04/22/18 09:22 04/22/18 09:10 04/22/18 05:22 Oxygen Flow Rate (L/min) 2 Oxygen Delivery Method Nasal Cannula Weight: 92 kg Body Mass Index (BMI) 30.8 Intake and Output for Last 24 Hours 04/20/18 04/21/18 04/22/18 23:59 23:59 23:59 Intake Total 840 / 840 240 / 240 Output Total 250 / 250 300 / 300 Balance 590 / 590 -60 / -60 Microbiology Past 72 Hours 04/21/18 07:40 Gram Stain - Final Sputum, Expectorated/Coughed Respiratory Culture - Final 04/21/18 13:30 Respiratory Panel (PCR) - Final Mucosa - Nose 04/21/18 05:28 Urine Culture - Final Urine, Clean Catch Mixed Gram Pos & Gram Neg Org 04/21/18 05:28 Legionella Antigen - Final Urine, Clean Catch 04/21/18 05:28 Streptococcus pneumoniae Antigen (M - Final Urine, Clean Catch Laboratory Tests Past 24 Hrs 04/22/18 04/22/18 04/22/18 05:20 05:20 05:20 WBC 5.7 RBC 4.05 L Hgb 12.3 Hct 39.1 MCV 96.5 MCH 30.4 MCHC 31.5 L RDW 15.6 H RDW Differential 54.4 H Plt Count 121 L MPV 9.9 Immature Gran % (Auto) 0.200 Neut % (Auto) 64.5 Lymph % (Auto) 17.2 L [place] % (Auto) 11.6 H Eos % (Auto) 5.6 H Baso % (Auto) 0.9 Absolute Neuts (auto) 3.7 Absolute Lymphs (auto) 0.98 Total Counted Not Reportable PT 20.7 H INR 1.8 APTT 34.9 Sodium 139 Potassium 3.9 Chloride 96 L Carbon Dioxide 35.0 H Anion Gap 8 BUN 24 H Creatinine 2.88 H Estim Creat Clear Calc 16.76 Est GFR (MDRD) Af Amer 20 L Est GFR (MDRD) Non-Af 17 L BUN/Creatinine Ratio 8.3 L Glucose 190 H Calcium 8.9 Magnesium 1.8 POC Glucose 04/22/18 04/21/18 04/21/18 06:15 22:24 16:13 POC Glucose 193 H 248 H 224 H 04/21/18 11:06 POC Glucose 180 H Assessment/Plan All Active Problems Chronic anticoagulation (Acute) Thrombocytopenia (Acute) Substernal chest pain (Acute) Chest pain. troponins are slightly elevated. reviewed stress test results. she has old ischemia but no reversible ischemia. Dr Lepe is her allergist immunologist. ROMÁN, HD dependent. has been dialysis dependent for 2.5 months now. Baseline creatinine prior to ROMÁN was around 1.5. Last month, creatinine is around 4. now around 2.1 and 2.8. Possible partial recovery. will watch numbers for now h/o CHF. overall lost about 25 -30 kg since starting dialysis, mostly water weight. currently looks euvolemic seen on dialysis today no complaints now see orders/flowsheets
--- NOTE | 2018-04-22 10:29 | CON.PCM_ITS ---
Problem List (1) End stage renal disease Status: Chronic Consultation - Renal 04/22/18 PCP/ Referring MD: Requesting physician: Dr Mackey Primary care physician: Mook Rain, Reason for Consultation:: ESRD - History of Present Illness History of Present Illness: The patient is a 77 year old F well known to us. she has known history of CKD stage 3 with baseline creatinine around 1.5 as of January 2018. In february she was admitted at [facility] with CHF, diuresis was attempted but she had dense renal failure and ended up on dialysis. Since starting dialysis, she has lost about 25 kg of fluid weight over the last 2 months. Has some urine output but creatinine was in 4s as of last month she presented to hospital with chest pain, worse with local palpation and movements. breathing is ok - Allergies Allergies: Allergies latex Allergy (Verified 04/21/18 03:41) Anaphylaxis meperidine [From Demerol] Allergy (Verified 04/21/18 03:40) Hives Penicillins Allergy (Verified 12/06/17 20:05) Hives Tetracyclines Allergy (Verified 12/06/17 20:05) Hives aspirin Adverse Reaction (Verified 04/21/18 04:35) Unknown atorvastatin Adverse Reaction (Verified 04/21/18 04:35) Unknown codeine Adverse Reaction (Verified 04/21/18 04:35) Unknown hydromorphone [From Dilaudid] Adverse Reaction (Verified 04/21/18 04:35) Unknown pentazocine Adverse Reaction (Verified 04/21/18 04:35) Unknown pioglitazone Adverse Reaction (Verified 04/21/18 04:35) Unknown propoxyphene Adverse Reaction (Verified 04/21/18 04:35) Unknown sulfamethoxazole [From Bactrim] Adverse Reaction (Verified 04/21/18 04:35) Unknown trimethoprim [From Bactrim] Adverse Reaction (Verified 04/21/18 04:35) Unknown - Current Medications Current Medications: Current Medications Acetaminophen (Tylenol) 650 mg PO Q4H PRN PRN PRN Reason: FEVER Last Admin: 04/21/18 22:27 Dose: 650 mg Hydrocodone Bitart/Acetaminophen ([place] 5mg-325mg) 1 tablet PO TID PRN PRN Reason: PAIN Last Admin: 04/21/18 21:20 Dose: 1 tablet Albuterol Sulfate (Ventolin Aerosols) 2.5 mg INHALATION Q2H PRN PRN PRN Reason: SHORTNESS OF BREATH Albuterol/Ipratropium (Duoneb) 3 ml INHALATION Q6H.RT [facility] Last Admin: 04/22/18 07:02 Dose: Not Given Amiodarone HCl (Cordarone) 200 mg PO DAILY [facility] Last Admin: 04/21/18 09:44 Dose: 200 mg Apixaban (Eliquis) 5 mg PO BID [facility] Last Admin: 04/21/18 22:27 Dose: 5 mg Bumetanide (Bumex) 0.5 mg PO BID [facility] Last Admin: 04/21/18 23:39 Dose: 0.5 mg Bumetanide (Bumex) 2 mg PO BID [facility] Last Admin: 04/21/18 23:38 Dose: 2 mg Carvedilol (Coreg) 3.125 mg PO BID [facility] Last Admin: 04/21/18 23:39 Dose: 3.125 mg Guaifenesin (Mucinex) 1,200 mg PO BID [facility] Last Admin: 04/21/18 22:27 Dose: 1,200 mg Ciprofloxacin (Cipro) 400 mg in 200 mls @ 200 mls/hr IV Q24 [facility] Last Admin: 04/21/18 06:53 Dose: 200 mls/hr Insulin Human Lispro (Humalog Kwikpen (Bkc)) 0 unit SC ACHS [facility] PRN Reason: Protocol Last Admin: 04/21/18 22:34 Dose: 2 u Isosorbide Mononitrate (Imdur) 60 mg PO DAILY [facility] Last Admin: 04/21/18 09:44 Dose: 60 mg Magnesium Hydroxide (Milk Of Magnesia) 30 ml PO DAILY PRN PRN Reason: Constipation Metoclopramide HCl (Metoclopramide Hcl) 5 mg PO TID [facility] Last Admin: 04/22/18 05:29 Dose: 5 mg Nitroglycerin (Nitrostat) 0.4 mg SUBLINGUAL Q5M PRN PRN Reason: CARDIAC/CHEST PAIN Last Admin: 04/21/18 21:01 Dose: 0.4 mg Ondansetron HCl (Zofran) 4 mg IV Q8H PRN PRN PRN Reason: NAUSEA Simvastatin (Zocor) 40 mg PO QHS [facility] Last Admin: 04/21/18 22:28 Dose: 40 mg Sodium Chloride () 5 - 15 ml IV UD PRN PRN Reason: SALINE FLUSH Sodium Chloride () 5 - 30 ml IV UD PRN PRN Reason: SALINE FLUSH Trazodone HCl (Desyrel) 100 mg PO QHS [facility] Last Admin: 04/21/18 22:27 Dose: 100 mg - Past Medical History Past Medical History (Chronic Problems): Chronic Problems Hypertension (Chronic) Hyperlipidemia (Chronic) Type 2 diabetes mellitus (Chronic) COPD (chronic obstructive pulmonary disease) (Chronic) Chronic hypoxemic respiratory failure (Chronic) Atrial fibrillation (Chronic) Coronary artery disease (Chronic) Presence of combination internal cardiac defibrillator (ICD) and pacemaker ( Chronic) End stage renal disease (Chronic) Diabetic neuropathy (Chronic) Peripheral vascular disease (Chronic) Venous insufficiency of both lower extremities (Chronic) Congestive heart failure (Chronic) History of coronary artery bypass graft (Chronic) 2013 History of PTCA (Chronic) 6 stents per patient - Past Surgical History Surgical History: angioplasty - has had a total of 6 stents, cholecystectomy, coronary bypass surgery - 2013, hysterectomy - for DUB, pacemaker implantation - AICD/PM, - - Social History Smoking Status: Former smoker - quit in 2001 Alcohol: Rare Drugs: None - Family History Maternal History Items: No pertinent history Paternal History Items: No pertinent history Review of Systems Constitutional: Denies: Chills, Fever, Weight Change HEENT: Denies: Head Aches, Sinus Congestion, Sinus Drainage Cardiovascular: Denies: Chest Pain, Palpitations Respiratory: Denies: Cough, Shortness of breath at rest, Sputum production Gastrointestinal: Denies: Abdominal Pain, Nausea, Vomiting Genitourinary: Denies: Dysuria Musculoskeletal: Denies: Joint Pain, Joint Tenderness Skin: Denies: Rash, Wounds Neurological: Denies: Numbness, Tingling, Focal weakness Psychiatric: Denies: Anxiety, Depression, Homicidal Ideations, Suicidal Ideations Hematologic/ Lymphatic: Denies: Easy Bruising, Easy Bleeding Patient Problems: Active and Suspected Problems HCAP (healthcare-associated pneumonia) (Suspected) Chronic anticoagulation (Acute) Thrombocytopenia (Acute) Substernal chest pain (Acute) - Physical Exam General: Alert, Oriented x3, Cooperative HEENT: Atraumatic, PERRLA, EOMI, Normocephalic Neck: Supple, No JVD, Negative Carotid Bruits Lungs: Clear to auscultation, Normal air movement Cardiovascular: Regular rate, No murmurs Abdomen: Bowel Sounds Present, Soft, Non Tender Extremities: No edema, Capillary Refill Less than 3 Seconds Skin: No rashes, No breakdown Musculoskeletal: No Tenderness to Palpation of Joints or Extremities Neurological: Cranial nerves II-XII grossly intact Psych/Mental Status: Normal Affect, Appropriate Vital Signs Temp Pulse Resp BP Pulse Ox 97.8 F 64 18 151/73 H 99 04/22/18 09:10 04/22/18 09:10 04/22/18 09:22 04/22/18 09:10 04/22/18 05:22 Oxygen Flow Rate (L/min) 2 Oxygen Delivery Method Nasal Cannula Weight: 92 kg Body Mass Index (BMI) 30.8 Intake and Output for Last 24 Hours 04/20/18 04/21/18 04/22/18 23:59 23:59 23:59 Intake Total 840 / 840 240 / 240 Output Total 250 / 250 300 / 300 Balance 590 / 590 -60 / -60 Microbiology Past 72 Hours 04/21/18 07:40 Gram Stain - Final Sputum, Expectorated/Coughed Respiratory Culture - Final 04/21/18 13:30 Respiratory Panel (PCR) - Final Mucosa - Nose 04/21/18 05:28 Urine Culture - Final Urine, Clean Catch Mixed Gram Pos & Gram Neg Org 04/21/18 05:28 Legionella Antigen - Final Urine, Clean Catch 04/21/18 05:28 Streptococcus pneumoniae Antigen (M - Final Urine, Clean Catch Laboratory Tests Past 24 Hrs 04/22/18 04/22/18 04/22/18 05:20 05:20 05:20 WBC 5.7 RBC 4.05 L Hgb 12.3 Hct 39.1 MCV 96.5 MCH 30.4 MCHC 31.5 L RDW 15.6 H RDW Differential 54.4 H Plt Count 121 L MPV 9.9 Immature Gran % (Auto) 0.200 Neut % (Auto) 64.5 Lymph % (Auto) 17.2 L [place] % (Auto) 11.6 H Eos % (Auto) 5.6 H Baso % (Auto) 0.9 Absolute Neuts (auto) 3.7 Absolute Lymphs (auto) 0.98 Total Counted Not Reportable PT 20.7 H INR 1.8 APTT 34.9 Sodium 139 Potassium 3.9 Chloride 96 L Carbon Dioxide 35.0 H Anion Gap 8 BUN 24 H Creatinine 2.88 H Estim Creat Clear Calc 16.76 Est GFR (MDRD) Af Amer 20 L Est GFR (MDRD) Non-Af 17 L BUN/Creatinine Ratio 8.3 L Glucose 190 H Calcium 8.9 Magnesium 1.8 POC Glucose 04/22/18 04/21/18 04/21/18 06:15 22:24 16:13 POC Glucose 193 H 248 H 224 H 04/21/18 11:06 POC Glucose 180 H Assessment/Plan All Active Problems Chronic anticoagulation (Acute) Thrombocytopenia (Acute) Substernal chest pain (Acute) Chest pain. troponins are slightly elevated. reviewed stress test results. she has old ischemia but no reversible ischemia. Dr Lepe is her metallurgist helper. ROMÁN, HD dependent. has been dialysis dependent for 2.5 months now. Baseline creatinine prior to ROMÁN was around 1.5. Last month, creatinine is around 4. now around 2.1 and 2.8. Possible partial recovery. will watch numbers for now h/o CHF. overall lost about 25 -30 kg since starting dialysis, mostly water weight. currently looks euvolemic seen on dialysis today no complaints now see orders/flowsheets
--- NOTE | 2018-04-22 10:40 | CASEMGMT ---
This RN CM to room with GUTHRIE form at this time, explanation done and pt signed GUTHRIE form at this time. Pt voices no further questions/concerns at this time. Original to chart and copy to pt at this time. SStannalee SANDHU CM
[2018-04-22] MEDS: Ipratropium/Albuterol Sulfate 3 ML AMPUL.NEB INHALATION (12:29)
[2018-04-22 13:20] LABS: Bedside Glucose 151 mg/dL (70-110)
[2018-04-22] MEDS: Bumetanide 2 MG Tablet PO (13:30)
[2018-04-22] MEDS: Bumetanide 0.5 MG Tablet PO (13:30)
[2018-04-22] MEDS: Isosorbide Mononitrate 60 MG Tablet PO (13:31)
[2018-04-22] MEDS: Amiodarone 200 MG Tablet PO (13:31)
[2018-04-22] MEDS: Carvedilol 3.125 MG TABLET PO (13:31)
[2018-04-22] MEDS: APIXABAN 5 MG TABLET PO (13:31)
[2018-04-22] MEDS: guaiFENesin 1,200 MG Tablet 1200 MG PO (13:32)
[2018-04-22] MEDS: Heparin 10,000 UNITS/10 ML Vial IV (13:32)
[2018-04-22] MEDS: Ciprofloxacin 400 MG/200 ML BAG 200 MG IV (13:37)
[2018-04-22] MEDS: 0.9% Saline Lock 10 ML Syringe IV (13:37)
== END 2018-04-22 11:02 | disposition home or self-care (01) ==
PROVIDERS: Admitting Provider Internal Medicine; Family Provider Family Medicine; PCP Family Medicine; Visit Provider Internal Medicine
DX: M94.0 Chondrocostal junction syndrome [Tietze] (principal); E11.22 Type 2 diabetes mellitus with diabetic chronic kidney disease; I13.2 Hypertensive heart and chronic kidney disease with heart failure and with stage 5 chronic kidney disease, or end stage renal disease; I50.22 Chronic systolic (congestive) heart failure; N18.6 End stage renal disease; E11.40 Type 2 diabetes mellitus with diabetic neuropathy, unspecified; J44.9 Chronic obstructive pulmonary disease, unspecified; I25.10 Atherosclerotic heart disease of native coronary artery without angina pectoris; J96.11 Chronic respiratory failure with hypoxia; R94.31 Abnormal electrocardiogram [ECG] [EKG]; N17.9 Acute kidney failure, unspecified; D69.6 Thrombocytopenia, unspecified; E11.51 Type 2 diabetes mellitus with diabetic peripheral angiopathy without gangrene; I48.91 Unspecified atrial fibrillation; Z95.810 Presence of automatic (implantable) cardiac defibrillator; Z99.81 Dependence on supplemental oxygen; Z99.2 Dependence on renal dialysis; Z79.01 Long term (current) use of anticoagulants; Z79.51 Long term (current) use of inhaled steroids; Z79.899 Other long term (current) drug therapy; Z79.4 Long term (current) use of insulin; Z95.1 Presence of aortocoronary bypass graft; Z87.891 Personal history of nicotine dependence; Z66 Do not resuscitate
CPT/HCPCS: 36415; 71046; 78452; 80048; 81001; 82962; 83735; 84100; 84484; 85025; 85610; 85730; 87040; 87070; 87086; 87088; 87205; 87449; 87633; 90937; 93005; 93017; 94640; 94667; 96365; 96366; 96375; 97162; 97165; 97802; 99218; A9500; A4216; G0257; G0378; G0379; J0744; J2785

== ENCOUNTER 2018-05-11 13:28 | Inpatient (IN) | payer MEDICARE, SELFPAY ==
[2018-05-11] VITALS (10 sets, daily range): BP systolic 107–139; BP diastolic 56–95; PULSE 50–80; RESP 18–28; TEMP 36.5–36.7; O2SAT 92–96; BMI 32.4
--- NOTE | 2018-05-11 13:41 | EKG12_ITS ---
Test Reason : Blood Pressure : / mmHG Vent. Rate : 078 BPM Atrial Rate : 078 BPM P-R Int : 000 ms QRS Dur : 186 ms QT Int : 492 ms P-R-T Axes : 000 255 098 degrees QTc Int : 560 ms Electronic ventricular pacemaker Occasional PVCs Confirmed by KEARA COLLIER, AYDE ([id number]), medical editor JASON OSORIO ([id number]) on 05/13/2018 1:34:43 PM Referred By: Luis Wise Confirmed By:AYDE SARAH MD
--- NOTE | 2018-05-11 13:44 | RAD_ITS ---
STUDY: X-RAY CHEST REASON FOR EXAM: Female, 77 years old. Chest pain and shortness of breath TECHNIQUE: Single AP portable view of the chest. COMPARISON: 04/21/2018 FINDINGS: EKG leads overlie the chest. Stable appearance of a left subclavian pacemaker and right-sided dialysis catheter. Lungs are expanded. Right lung is clear. Left lung continues to show blunting of the left costophrenic angle suggesting a likely combination of atelectasis and small effusion. Sternal cerclage wires and vascular clips are present from a prior sternotomy and coronary artery bypass graft procedure (CABG). Normal mediastinum and samuel. Normal visualized pulmonary arteries. Normal visualized aortic arch and descending thoracic aorta. Normal visualized thoracic spine. Normal visualized ribs, clavicles, and shoulders. There is no demonstrated abnormality of the visualized soft tissue structures of the upper abdomen. RAD/Chest 1 View (Portable) IMPRESSION: No interval change Electronically Signed: Luis Terry MD at 13:56 EDT , Service support ,
[2018-05-11 14:30] LABS: Absolute Lymphocyte Count 1.15 X10^3/ul (0.83-4.51); Absolute Neutrophil Count 3.4 X10^3/uL (2.0-7.7); Basophil# 0.03 X10^3/uL; Basophil% 0.6 % (0-1); Eosinophil# 0.18 X10^3/uL; Eosinophils% 3.3 % (0-5); Hematocrit 38.8 % (37-47); Hemoglobin 11.9 g/dl (12.0-15.0); Lymphocyte # 1.15 X10^3/ul (4.0); Lymphocyte % 21.3 % (19-41); Mean Corp Hgb Conc 30.7 g/gl (32-36); Mean Corpuscular Hgb 29.7 pg (27.0-32.0); Mean Corpuscular Volume 96.8 fL (81-99); Mean Platelet Vol. 9.7 fl (6.2-12.0); Monocyte# 0.61 X10^3/uL; Monocyte% 11.3 % (0-10); Neutrophil # 3.43 X10^3/uL (2.7-7.7); Neutrophil % 63.3 % (47-70); Platelet Count 134 K/mm3 (150-450); RBC Distribution Width CV 14.9 % (11.6-14.6); RBC Distribution Width SD 52.9 fl (35.1-43.9); Red Blood Count 4.01 M/mm3 (4.2-5.4); White Blood Count 5.4 K/mm3 (4.4-11.0)
[2018-05-11 14:32] LABS: POSITIVE COUNT NO; POSITIVE DIFFERENTIAL NO; POSITIVE MORPHOLOGY NO
[2018-05-11 14:37] LABS: Anion Gap 5 (5-15); BUN 17 mg/dL (7-18); BUN/Creat Ratio 6.5 RATIO (10-20); Calcium,Total 8.8 mg/dL (8.5-10.1); Chloride 99 mmol/L (98-107); Creatinine, Serum 2.63 mg/dL (0.55-1.02); EST Glomerular Filtration Rate 19 mL/min (>60); Est Glom Filt Rate - Afr Amer 23 mL/min (>60); Estimated Creatinine Clearance 18.36 ml/min; Glucose 85 mg/dL (74-106); Potassium 3.2 mmol/L (3.5-5.1); Sodium Level 141 mmol/L (136-145)
--- NOTE | 2018-05-11 14:37 | ED.RN ---
TROPONIN 0.72, DR. MCCARTY AWARE.
--- NOTE | 2018-05-11 15:00 | ED.VISSUMM ---
- ER Visit Summary Date of Service: 05/11/18 Chief Complaint: Sharp midsternal chest discomfort during dialysis with nausea and diaphoresis. Patient states she had similar presentation when she was diagnosed with UT. History of Present Illness: The patient is a 77 F midsternal chest pain during dialysis. This was associated with nausea and diaphoresis. She denied radiation. She did report numbness in her left upper extremity. She is status post 2 vessel bypass surgery and has had 9 stents placed. The surgery was done in [place]. She is not a good informant. She denies fever, chills night sweats. She denies any ocular, visual auditory symptoms. She is wearing sunglasses. She denies any abdominal pain, diarrhea, black or maroon colored stool. She does report symptoms consistent with peripheral arterial disease, claudication. Physical Examination: Patient is heavyset. HEENT exam is unremarkable. Lungs are clear to auscultation. Heart is regular. Abdomen is soft nontender. Is no palpable cell mass abdominal bruit. She has stigmata of peripheral arterial disease lower extremity with absent hair, thickened toenails and absent pulses. Capillary refill is within normal limits. Test Results: EKG reveals a ventricular paced rhythm. Chest x-ray reveals mild cardiomegaly. Blood work is remarkable for an H&H 11.9 and 38.8. Creatinine is 2.63. Troponin is 0.716. Emergency Department Course and Treatment: Chest pain protocol order set was initiated. Need to rule out cardiac versus noncardiac etiology. With the elevated troponin the hospitalist was paged as well as Dr. Hunter. He requested an echo to be done and to anticoagulate patient with heparin Treatment Plan: Further testing to include echo, heparinization and per Dr. Hunter Disposition: PCU Impression: 1. Midsternal chest pain 2. Elevated troponin 3. End-stage renal disease on hemodialysis 4. History of diabetes 5. History of hypertension 6. History of coronary disease This note was generated with [employer] dictation software. It may contain incorrect words, spelling, and punctuation that were not noted in review of the chart prior to signing ED Disposition - Plan for ED Patient: Chief Complaint: Chest Pain Referrals: Mook Rain MD [Primary Care Provider] -
--- NOTE | 2018-05-11 15:09 | ECHOD_ITS ---
Reason For Study: CAD/ASHD Procedure This was a 2D Doppler, Color Flow transthoracic echocardiogram. Exam performed portable in patient room. Left Ventricle Mild concentric left ventricular hypertrophy. D shaped septum in diastole. The estimated ejection fraction is 55 %. Paced septal motion. No regional wall motion abnormalities noted. Right Ventricle Normal size and thickness. ICD or pacer leads identified within the right ventricle. Normal systolic function. Atria The left atrium is severely enlarged. The right atrium is severely enlarged. Normal atrial septum. Mitral Valve The mitral valve is structurally normal. No prolapse or stenosis seen. Trivial mitral valve insufficiency. Tricuspid Valve Normal tricuspid valve. Moderately severe (3+) tricuspid valve insufficiency. Right ventricular systolic pressure estimated to be 77 mmHg. Severe pulmonary hypertension. Aortic Valve Trisinus/trileaflet aortic valve. Mild diffuse aortic valve thickening. There is no aortic stenosis. Pulmonic Valve Normal pulmonic valve. Great Vessels Normal aortic root. Normal arch. The inferior vena cava is dilated. No collapse of the inferior vena cava. Pericardium/Pleural No pericardial effusion. MMode/2D Measurements & Calculations LVIDd: 4.5 cm IVSd: 1.3 cm Ao root diam: 3.2 cm LVIDs: 2.7 cm LVPWd: 1.5 cm LA dimension: 4.3 cm RVDd: 3.5 cm FS: 41.2 % LAV(MOD-bp): 71.8 ml LVAd ap4: 31.0 cm2 SV(MOD-sp4): 52.1 ml LAV(MOD-bp) Indexed: 35.0 ml/m2 EDV(MOD-sp4): 102.4 ml LAV(MOD-sp2): 55.7 ml EDV(sp4-el): 102.7 ml LAV(MOD-sp4): 84.0 ml LVAs ap4: 20.9 cm2 ESV(MOD-sp4): 50.3 ml ESV(sp4-el): 50.2 ml EF(MOD-sp4): 50.9 % EF(sp4-el): 51.1 % SV(sp4-el): 52.5 ml LA A4 area: 25.9 cm2 RA A4 area: 22.9 cm2 Doppler Measurements & Calculations MV E max chucky: 148.4 cm/sec Ao V2 max: 157.8 cm/sec LV V1 max: 109.7 cm/sec MV A max chucky: 31.8 cm/sec Ao max P.0 mmHg LV V1 max P.8 mmHg MV E/A: 4.7 PA V2 max: 144.3 cm/sec TR max chucky: 373.1 cm/sec TR max P.8 mmHg Interpretation Summary Mild concentric left ventricular hypertrophy. The estimated ejection fraction is 55 %. The left atrium is severely enlarged. The right atrium is severely enlarged. Moderately severe (3+) tricuspid valve insufficiency. Severe pulmonary hypertension. Pt appears to be in atrial fibrillation. There is no comparison study available. Ordering Physician: Luis Wise Referring Physician: JAMESON KAMARA Performed By: Suzanne Mcdonough RDCS
[2018-05-11 15:25] LABS: International Normalized Ratio 1.8; Prothrombin Time (Protime)PT. 20.5 SECONDS (11.7-14.9)
--- NOTE | 2018-05-11 15:40 | NURSING ---
Flash notified patient may transfer to PCU.
--- NOTE | 2018-05-11 15:46 | PCM.HP.STD ---
<Mariluz Gaffney - Last Filed: 05/11/18 16:10> Problem List (1) Hypertension Status: Chronic (2) Hyperlipidemia Status: Chronic (3) Type 2 diabetes mellitus Status: Chronic (4) COPD (chronic obstructive pulmonary disease) Status: Chronic (5) Chronic hypoxemic respiratory failure Status: Chronic (6) Chronic anticoagulation Status: Chronic (7) Atrial fibrillation Status: Chronic (8) Coronary artery disease Status: Chronic (9) Presence of combination internal cardiac defibrillator (ICD) and pacemaker Status: Chronic (10) End stage renal disease Status: Chronic (11) Diabetic neuropathy Status: Chronic (12) Peripheral vascular disease Status: Chronic (13) Venous insufficiency of both lower extremities Status: Chronic (14) Congestive heart failure Status: Chronic (15) History of coronary artery bypass graft Status: Chronic Comment: 2013 (16) History of PTCA Status: Chronic Comment: 6 stents per patient History of Present Illness Date of Admission: 05/11/18 Chief Complaint: Chest pain. The patient is a 77 year old F who presents to the emergency room due to chest pain. Patient states chest pain began last evening, sharp in nature and intermittent lasting a few minutes at a time. She states pain radiated from middle of her chest to area of defibrillator. She attempted sublingual nitro without any relief. She describes associated shortness of breath. She denies any aggravated or alleviating factors. Denies nausea, dizziness, diaphoresis. Patient states her daughter wanted to take her to the emergency room last night and she refused. Patient continued to have intermittent chest pain this morning which occurred during dialysis and she was sent to the emergency room. Patient had a recent admission 04/21/2018 through 04/22/2018. She underwent nuclear stress test at that time which was negative for ischemia. Her troponin was elevated at that time as well. She has an extensive medical history including CAD status post CABG in 2013 and PTCA ?6, chronic systolic CHF, hypertension, hyperlipidemia, type 2 diabetes mellitus, COPD with chronic hypoxic respiratory failure, atrial fibrillation on chronic anticoagulation with Eliquis, status post AICD, end-stage renal disease on hemodialysis, PVD, GERD, history of tobacco use (cessation in 2003). Stress test 04/22/2018 showed a gated ejection fraction of 49%. Past Medical History Past Medical History (Chronic Problems): Chronic Problems Hypertension (Chronic) Hyperlipidemia (Chronic) Type 2 diabetes mellitus (Chronic) COPD (chronic obstructive pulmonary disease) (Chronic) Chronic hypoxemic respiratory failure (Chronic) Chronic anticoagulation (Chronic) Atrial fibrillation (Chronic) Coronary artery disease (Chronic) 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) End stage renal disease (Chronic) Diabetic neuropathy (Chronic) Peripheral vascular disease (Chronic) Venous insufficiency of both lower extremities (Chronic) Congestive heart failure (Chronic) History of coronary artery bypass graft (Chronic) 2014 History of PTCA (Chronic) 6 stents per patient Allergies latex Allergy (Verified 05/11/18 13:30) Anaphylaxis meperidine [From Demerol] Allergy (Verified 05/11/18 13:30) Hives Penicillins Allergy (Verified 05/11/18 13:30) Hives Tetracyclines Allergy (Verified 05/11/18 13:30) Hives aspirin Adverse Reaction (Verified 05/11/18 13:30) Unknown atorvastatin Adverse Reaction (Verified 05/11/18 13:30) Unknown codeine Adverse Reaction (Verified 05/11/18 13:30) Unknown hydromorphone [From Dilaudid] Adverse Reaction (Verified 05/11/18 13:30) Unknown pentazocine Adverse Reaction (Verified 05/11/18 13:30) Unknown pioglitazone Adverse Reaction (Verified 05/11/18 13:30) Unknown propoxyphene Adverse Reaction (Verified 05/11/18 13:30) Unknown sulfamethoxazole [From Bactrim] Adverse Reaction (Verified 05/11/18 13:30) Unknown trimethoprim [From Bactrim] Adverse Reaction (Verified 05/11/18 13:30) Unknown Home Medications: Ambulatory Orders Medication Instructions Recorded Apixaban [Eliquis] 5 mg PO BID 12/06/17 Budesonide/Formoterol 160/4.5 2 puff INHALATION BID 12/06/17 [Symbicort 160/4.5 Mcg Inhaler (SP)] Isosorbide Mononitrate [Isosorbide 60 mg PO DAILY 12/06/17 Mononitrate ER] Nitroglycerin 0.4 mg SL Q5M PRN 12/06/17 Simvastatin 40 mg PO QHS 12/06/17 Carvedilol [Coreg (Beta Mayra)] 3.125 mg PO BID 04/21/18 Hydrocodone/Acetaminophen [[place] 1 tablet PO TID PRN 04/21/18 5-325 Tablet] Insulin Aspart [Novolog Flexpen] 0 - 100 units SC TIDCM #0 04/21/18 Tramadol HCl [Ultram] 50 mg PO Q6H 04/21/18 Trazodone HCl 100 mg PO QHS 04/21/18 Insulin Glargine,Hum.rec.anlog 36 unit SQ QHS 04/22/18 [Lantus] Insulin Glargine,Hum.rec.anlog 50 unit SQ BREAKFAST 04/22/18 [Lantus] Amiodarone HCl [Amiodarone HCl] 200 mg PO DAILY 05/11/18 Omeprazole [Omeprazole] 20 mg PO DAILY 05/11/18 Ondansetron HCl [Zofran] 4 mg PO Q8H PRN PRN 05/11/18 Sennosides [Senna] 8.6 mg PO QHS PRN PRN 05/11/18 Surgical History: angioplasty - has had a total of 6 stents, cholecystectomy, coronary bypass surgery - 2013, hysterectomy - for DUB, pacemaker implantation - AICD/PM, - - Excision of cyst left leg. Psychiatric History: No pertinent psych hx PLANT SPECIALIST History: No pertinent PLANT SPECIALIST history Lives: With Family Smoking Status: Former smoker Alcohol: None Drugs: None - *Family History Maternal History Items: Hypertension Paternal History Items: Heart Disease Review of Systems Constitutional: Denies: Chills, Fever, Weight Change HEENT: Denies: Head Aches, Sinus Congestion, Sinus Drainage Cardiovascular: Reports: Chest Pain. Denies: Edema, Palpitations, Syncope Respiratory: Reports: Shortness of Breath - Associated with chest pain. Denies: Cough, Wheezing Gastrointestinal: Denies: Abdominal Pain, Nausea, Vomiting Genitourinary: Denies: Dysuria Musculoskeletal: Denies: Joint Pain, Joint Tenderness Skin: Denies: Rash, Wounds Neurological: Reports: - - Chronic neuropathy bilateral lower extremities.. Denies: Focal weakness Psychiatric: Denies: Anxiety, Depression, Homicidal Ideations, Suicidal Ideations Hematologic/ Lymphatic: Denies: Easy Bruising, Easy Bleeding VTE Information - Inpt Only VTE Present on Admission: No VTE Mechan Device Prophylaxis: None VTE Pharm Prophylaxis ordered?: Yes Patient Problems: Active and Suspected Problems NSTEMI (non-ST elevated myocardial infarction) (Acute) - Physical Exam General: Alert, Oriented x3, Cooperative, No apparent distress HEENT: Atraumatic, PERRLA, EOMI, Normocephalic Neck: Supple, No JVD, Negative Carotid Bruits Lungs: Clear to auscultation, Diminished Cardiovascular: Regular rate, Regular Rhythm, Normal S1, Normal S2, No murmurs Abdomen: Bowel Sounds Present, Soft, Non Tender, Non-Distended, Obese Extremities: - - Lower extremities appear dusky in color, scattered scabbing bilateral lower extremities. No evidence of infection. Musculoskeletal: No Tenderness to Palpation of Joints or Extremities Neurological: Cranial nerves II-XII grossly intact, Neuro grossly intact Psych/Mental Status: Normal Affect, Appropriate Vital Signs Temp Pulse Resp BP Pulse Ox 97.7 F L 74 28 H 120/81 H 96 05/11/18 13:31 05/11/18 14:35 05/11/18 14:35 05/11/18 14:35 05/11/18 14:35 Oxygen Flow Rate (L/min) 2.5 Oxygen Delivery Method Nasal Cannula Weight: 213 lb 6.519 oz Body Mass Index (BMI) 32.4 Laboratory Tests Past 24 Hrs 05/11/18 05/11/18 05/11/18 14:05 14:05 14:05 WBC 5.4 RBC 4.01 L Hgb 11.9 L Hct 38.8 MCV 96.8 MCH 29.7 MCHC 30.7 L RDW 14.9 H RDW Differential 52.9 H Plt Count 134 L MPV 9.7 Immature Gran % (Auto) 0.200 Neut % (Auto) 63.3 Lymph % (Auto) 21.3 [place] % (Auto) 11.3 H Eos % (Auto) 3.3 Baso % (Auto) 0.6 Absolute Neuts (auto) 3.4 Absolute Lymphs (auto) 1.15 Total Counted Not Reportable PT Pending INR Pending APTT Pending Sodium 141 Potassium 3.2 L Chloride 99 Carbon Dioxide 37.0 H Anion Gap 5 BUN 17 Creatinine 2.63 H Estim Creat Clear Calc 18.36 Est GFR (MDRD) Af Amer 23 L Est GFR (MDRD) Non-Af 19 L BUN/Creatinine Ratio 6.5 L Glucose 85 Calcium 8.8 Troponin I 0.716 H* Assessment/Plan All Active Problems NSTEMI (non-ST elevated myocardial infarction) (Acute) 1. Chest pain, underlying history of CAD status post CABG in 2013 and PTCA ?6-EKG on admission without evidence of ischemia. Troponin elevated, 0.7. Patient was noted to have elevated troponin during recent admission in April 2018 as well with a peak troponin of 0.58. Stress test 04/22/2018 showed a gated ejection fraction of 49%, no obvious evidence of ischemia. Cardiology consulted. Hold Eliquis regimen pending further plans per cardiology. Continue isosorbide, amiodarone, carvedilol, statin. Nitro sublingual as needed. Repeat EKG with new onset chest pain. Obtain echocardiogram. 2. Atrial fibrillation on chronic anticoagulation with Eliquis-hold Eliquis. Rate controlled. 3. Chronic systolic CHF-no evidence of CHF exacerbation. No previous echocardiogram however EF based on recent stress test 49%. 4. Hypertension-stable, continue home regimen. 5. Hyperlipidemia-continue statin. 6. Type 2 diabetes [id number] before meals at bedtime. Continue home Lantus regimen. Before meals at bedtime sliding scale. 7. Chronic COPD with chronic hypoxic respiratory failure-no acute exacerbation. Albuterol and DuoNeb aerosols. Patient chronically wears 2 L nasal cannula at baseline. Continue supplement oxygen to maintain O2 at or above 90%. 8. End-stage renal disease-on Wednesday, Wednesday, Wednesday hemodialysis through right chest tunneled catheter. Patient undergoing assessment for fistula vascular as outpatient. Has seen Dr. Martin in the past. Consult nephrology to maintain hemodialysis schedule. 9. Status post AICD 10. PVD-patient reports recent vascular studies in which she was to follow-up as outpatient for results. Charlie wraps bilateral lower extremities. 11. GERD-continue PPI. 12. History of tobacco use 13. Obesity-encourage diet and lifestyle modifications. Nutrition consult. DVT prophylaxis-hold Eliquis pending further plans per cardiology. This patient was seen by JUNAID Cason under the supervision of Dr. Ji. <Clemente Ji - Last Filed: 05/11/18 17:20> Problem List (1) NSTEMI (non-ST elevated myocardial infarction) Status: Acute History of Present Illness The patient is a 77 year old F Mayra with chest pain that began on the . Had a troponin of 0.7. Was already anticoagulated with Eliquis. Cardiology has been contacted by the emergency room. Patient has had a history of multiple stents and has had a CABG in the past. Patient had a left heart catheterization a few years ago at the [facility] was apparently negative. Patient was here earlier this month with chest pain but states that this chest pain felt different than that. [] Past Medical History Allergies latex Allergy (Verified 05/11/18 13:30) Anaphylaxis meperidine [From Demerol] Allergy (Verified 05/11/18 13:30) Hives Penicillins Allergy (Verified 05/11/18 13:30) Hives Tetracyclines Allergy (Verified 05/11/18 13:30) Hives aspirin Adverse Reaction (Verified 05/11/18 13:30) Unknown atorvastatin Adverse Reaction (Verified 05/11/18 13:30) Unknown codeine Adverse Reaction (Verified 05/11/18 13:30) Unknown hydromorphone [From Dilaudid] Adverse Reaction (Verified 05/11/18 13:30) Unknown pentazocine Adverse Reaction (Verified 05/11/18 13:30) Unknown pioglitazone Adverse Reaction (Verified 05/11/18 13:30) Unknown propoxyphene Adverse Reaction (Verified 05/11/18 13:30) Unknown sulfamethoxazole [From Bactrim] Adverse Reaction (Verified 05/11/18 13:30) Unknown trimethoprim [From Bactrim] Adverse Reaction (Verified 05/11/18 13:30) Unknown Surgical History: angioplasty, cholecystectomy, coronary bypass surgery, hysterectomy, pacemaker implantation, - Psychiatric History: No pertinent psych hx PLANT SPECIALIST History: No pertinent PLANT SPECIALIST history Lives: With Family Smoking Status: Former smoker Alcohol: None Drugs: None - *Family History Maternal History Items: Hypertension Paternal History Items: Heart Disease Review of Systems Constitutional: Denies: Chills, Fever, Weight Change HEENT: Denies: Head Aches, Sinus Congestion, Sinus Drainage Cardiovascular: Reports: Chest Pain. Denies: Palpitations, Syncope Respiratory: Reports: Shortness of Breath. Denies: Cough, Wheezing Gastrointestinal: Denies: Abdominal Pain, Nausea, Vomiting Genitourinary: Denies: Dysuria Musculoskeletal: Denies: Joint Pain, Joint Tenderness Skin: Denies: Rash, Wounds Neurological: Reports: -. Denies: Focal weakness Psychiatric: Denies: Anxiety, Depression, Homicidal Ideations, Suicidal Ideations Hematologic/ Lymphatic: Denies: Easy Bruising, Easy Bleeding Comment: All review of systems are negative except as mentioned in the history of present illness and the other review of systems. VTE Information - Inpt Only VTE Present on Admission: No VTE Pharm Prophylaxis ordered?: Yes - Physical Exam General: Alert, Cooperative, No apparent distress HEENT: Atraumatic, Normocephalic Neck: No Nodes, Thyroid Normal Size and Texture Lungs: Clear to auscultation, Normal air movement, No rhonchi, No wheeze Cardiovascular: Regular rate, Regular Rhythm, Normal S1, Normal S2, No murmurs Abdomen: Bowel Sounds Present, Soft, Non Tender, Non-Distended, No Hepato-splenomegaly Extremities: - Psych/Mental Status: Normal Affect, Appropriate Vital Signs Temp Pulse Resp BP Pulse Ox 36.7 C 73 20 H 139/76 H 95 05/11/18 17:09 05/11/18 17:09 05/11/18 17:09 05/11/18 17:09 05/11/18 17:09 Oxygen Flow Rate (L/min) 2 Oxygen Delivery Method Nasal Cannula Assessment/Plan Patient seen and examined independently. Data reviewed. I agree with the above note by the nurse practitioner. 1. Non-ST elevation myocardial infarction Medical management for now, cardiology will be on consultation. Concern is that the patient may need a left heart catheterization. 2. End-stage renal disease Patient has been on hemodialysis since February vascular catheter in place. Patient stated that she only completed 2 hours of her dialysis session today Nephrology will be on consultation The patient does require left heart catheterization, will need to time dialysis accordingly. Code Visit Inpatient E&M: 61884 Init Hosp L3
--- NOTE | 2018-05-11 15:56 | HP.PCM_ITS ---
<Mariluz Gaffney - Last Filed: 05/11/18 16:10> Problem List (1) Hypertension Status: Chronic (2) Hyperlipidemia Status: Chronic (3) Type 2 diabetes mellitus Status: Chronic (4) COPD (chronic obstructive pulmonary disease) Status: Chronic (5) Chronic hypoxemic respiratory failure Status: Chronic (6) Chronic anticoagulation Status: Chronic (7) Atrial fibrillation Status: Chronic (8) Coronary artery disease Status: Chronic (9) Presence of combination internal cardiac defibrillator (ICD) and pacemaker Status: Chronic (10) End stage renal disease Status: Chronic (11) Diabetic neuropathy Status: Chronic (12) Peripheral vascular disease Status: Chronic (13) Venous insufficiency of both lower extremities Status: Chronic (14) Congestive heart failure Status: Chronic (15) History of coronary artery bypass graft Status: Chronic Comment: 2013 (16) History of PTCA Status: Chronic Comment: 6 stents per patient History of Present Illness Date of Admission: 05/11/18 Chief Complaint: Chest pain. The patient is a 77 year old F who presents to the emergency room due to chest pain. Patient states chest pain began last evening, sharp in nature and intermittent lasting a few minutes at a time. She states pain radiated from middle of her chest to area of defibrillator. She attempted sublingual nitro without any relief. She describes associated shortness of breath. She denies any aggravated or alleviating factors. Denies nausea, dizziness, diaphoresis. Patient states her daughter wanted to take her to the emergency room last night and she refused. Patient continued to have intermittent chest pain this morning which occurred during dialysis and she was sent to the emergency room. Patient had a recent admission 04/21/2018 through 04/22/2018. She underwent nuclear stress test at that time which was negative for ischemia. Her troponin was elevated at that time as well. She has an extensive medical history including CAD status post CABG in 2013 and PTCA ?6, chronic systolic CHF, hypertension, hyperlipidemia, type 2 diabetes mellitus, COPD with chronic hypoxic respiratory failure, atrial fibrillation on chronic anticoagulation with Eliquis, status post AICD, end-stage renal disease on hemodialysis, PVD, GERD, history of tobacco use (cessation in 2003). Stress test 04/22/2018 showed a gated ejection fraction of 49%. Past Medical History Past Medical History (Chronic Problems): Chronic Problems Hypertension (Chronic) Hyperlipidemia (Chronic) Type 2 diabetes mellitus (Chronic) COPD (chronic obstructive pulmonary disease) (Chronic) Chronic hypoxemic respiratory failure (Chronic) Chronic anticoagulation (Chronic) Atrial fibrillation (Chronic) Coronary artery disease (Chronic) Presence of combination internal cardiac defibrillator (ICD) and pacemaker ( Chronic) End stage renal disease (Chronic) Diabetic neuropathy (Chronic) Peripheral vascular disease (Chronic) Venous insufficiency of both lower extremities (Chronic) Congestive heart failure (Chronic) History of coronary artery bypass graft (Chronic) 2014 History of PTCA (Chronic) 6 stents per patient Allergies latex Allergy (Verified 05/11/18 13:30) Anaphylaxis meperidine [From Demerol] Allergy (Verified 05/11/18 13:30) Hives Penicillins Allergy (Verified 05/11/18 13:30) Hives Tetracyclines Allergy (Verified 05/11/18 13:30) Hives aspirin Adverse Reaction (Verified 05/11/18 13:30) Unknown atorvastatin Adverse Reaction (Verified 05/11/18 13:30) Unknown codeine Adverse Reaction (Verified 05/11/18 13:30) Unknown hydromorphone [From Dilaudid] Adverse Reaction (Verified 05/11/18 13:30) Unknown pentazocine Adverse Reaction (Verified 05/11/18 13:30) Unknown pioglitazone Adverse Reaction (Verified 05/11/18 13:30) Unknown propoxyphene Adverse Reaction (Verified 05/11/18 13:30) Unknown sulfamethoxazole [From Bactrim] Adverse Reaction (Verified 05/11/18 13:30) Unknown trimethoprim [From Bactrim] Adverse Reaction (Verified 05/11/18 13:30) Unknown Home Medications: Ambulatory Orders Medication Instructions Recorded Apixaban [Eliquis] 5 mg PO BID 12/06/17 Budesonide/Formoterol 160/4.5 2 puff INHALATION BID 12/06/17 [Symbicort 160/4.5 Mcg Inhaler (SP)] Isosorbide Mononitrate [Isosorbide 60 mg PO DAILY 12/06/17 Mononitrate ER] Nitroglycerin 0.4 mg SL Q5M PRN 12/06/17 Simvastatin 40 mg PO QHS 12/06/17 Carvedilol [Coreg (Beta Mayra)] 3.125 mg PO BID 04/21/18 Hydrocodone/Acetaminophen [[place] 1 tablet PO TID PRN 04/21/18 5-325 Tablet] Insulin Aspart [Novolog Flexpen] 0 - 100 units SC TIDCM #0 04/21/18 Tramadol HCl [Ultram] 50 mg PO Q6H 04/21/18 Trazodone HCl 100 mg PO QHS 04/21/18 Insulin Glargine,Hum.rec.anlog 36 unit SQ QHS 04/22/18 [Lantus] Insulin Glargine,Hum.rec.anlog 50 unit SQ BREAKFAST 04/22/18 [Lantus] Amiodarone HCl [Amiodarone HCl] 200 mg PO DAILY 05/11/18 Omeprazole [Omeprazole] 20 mg PO DAILY 05/11/18 Ondansetron HCl [Zofran] 4 mg PO Q8H PRN PRN 05/11/18 Sennosides [Senna] 8.6 mg PO QHS PRN PRN 05/11/18 Surgical History: angioplasty - has had a total of 6 stents, cholecystectomy, coronary bypass surgery - 2013, hysterectomy - for DUB, pacemaker implantation - AICD/PM, - - Excision of cyst left leg. Psychiatric History: No pertinent psych hx [employer]IAN History: No pertinent [employer]IAN history Lives: With Family Smoking Status: Former smoker Alcohol: None Drugs: None - *Family History Maternal History Items: Hypertension Paternal History Items: Heart Disease Review of Systems Constitutional: Denies: Chills, Fever, Weight Change HEENT: Denies: Head Aches, Sinus Congestion, Sinus Drainage Cardiovascular: Reports: Chest Pain. Denies: Edema, Palpitations, Syncope Respiratory: Reports: Shortness of Breath - Associated with chest pain. Denies : Cough, Wheezing Gastrointestinal: Denies: Abdominal Pain, Nausea, Vomiting Genitourinary: Denies: Dysuria Musculoskeletal: Denies: Joint Pain, Joint Tenderness Skin: Denies: Rash, Wounds Neurological: Reports: - - Chronic neuropathy bilateral lower extremities.. Denies: Focal weakness Psychiatric: Denies: Anxiety, Depression, Homicidal Ideations, Suicidal Ideations Hematologic/ Lymphatic: Denies: Easy Bruising, Easy Bleeding VTE Information - Inpt Only VTE Present on Admission: No VTE Mechan Device Prophylaxis: None VTE Pharm Prophylaxis ordered?: Yes Patient Problems: Active and Suspected Problems NSTEMI (non-ST elevated myocardial infarction) (Acute) - Physical Exam General: Alert, Oriented x3, Cooperative, No apparent distress HEENT: Atraumatic, PERRLA, EOMI, Normocephalic Neck: Supple, No JVD, Negative Carotid Bruits Lungs: Clear to auscultation, Diminished Cardiovascular: Regular rate, Regular Rhythm, Normal S1, Normal S2, No murmurs Abdomen: Bowel Sounds Present, Soft, Non Tender, Non-Distended, Obese Extremities: - - Lower extremities appear dusky in color, scattered scabbing bilateral lower extremities. No evidence of infection. Musculoskeletal: No Tenderness to Palpation of Joints or Extremities Neurological: Cranial nerves II-XII grossly intact, Neuro grossly intact Psych/Mental Status: Normal Affect, Appropriate Vital Signs Temp Pulse Resp BP Pulse Ox 97.7 F L 74 28 H 120/81 H 96 05/11/18 13:31 05/11/18 14:35 05/11/18 14:35 05/11/18 14:35 05/11/18 14:35 Oxygen Flow Rate (L/min) 2.5 Oxygen Delivery Method Nasal Cannula Weight: 213 lb 6.519 oz Body Mass Index (BMI) 32.4 Laboratory Tests Past 24 Hrs 05/11/18 05/11/18 05/11/18 14:05 14:05 14:05 WBC 5.4 RBC 4.01 L Hgb 11.9 L Hct 38.8 MCV 96.8 MCH 29.7 MCHC 30.7 L RDW 14.9 H RDW Differential 52.9 H Plt Count 134 L MPV 9.7 Immature Gran % (Auto) 0.200 Neut % (Auto) 63.3 Lymph % (Auto) 21.3 Armstrong % (Auto) 11.3 H Eos % (Auto) 3.3 Baso % (Auto) 0.6 Absolute Neuts (auto) 3.4 Absolute Lymphs (auto) 1.15 Total Counted Not Reportable PT Pending INR Pending APTT Pending Sodium 141 Potassium 3.2 L Chloride 99 Carbon Dioxide 37.0 H Anion Gap 5 BUN 17 Creatinine 2.63 H Estim Creat Clear Calc 18.36 Est GFR (MDRD) Af Amer 23 L Est GFR (MDRD) Non-Af 19 L BUN/Creatinine Ratio 6.5 L Glucose 85 Calcium 8.8 Troponin I 0.716 H* Assessment/Plan All Active Problems NSTEMI (non-ST elevated myocardial infarction) (Acute) 1. Chest pain, underlying history of CAD status post CABG in 2013 and PTCA ?6- EKG on admission without evidence of ischemia. Troponin elevated, 0.7. Patient was noted to have elevated troponin during recent admission in April 2018 as well with a peak troponin of 0.58. Stress test 04/22/2018 showed a gated ejection fraction of 49%, no obvious evidence of ischemia. Cardiology consulted. Hold Eliquis regimen pending further plans per cardiology. Continue isosorbide, amiodarone, carvedilol, statin. Nitro sublingual as needed. Repeat EKG with new onset chest pain. Obtain echocardiogram. 2. Atrial fibrillation on chronic anticoagulation with Eliquis-hold Eliquis. Rate controlled. 3. Chronic systolic CHF-no evidence of CHF exacerbation. No previous echocardiogram however EF based on recent stress test 49%. 4. Hypertension-stable, continue home regimen. 5. Hyperlipidemia-continue statin. 6. Type 2 diabetes chtoetns-Jrka-Mybly before meals at bedtime. Continue home Lantus regimen. Before meals at bedtime sliding scale. 7. Chronic COPD with chronic hypoxic respiratory failure-no acute exacerbation. Albuterol and DuoNeb aerosols. Patient chronically wears 2 L nasal cannula at baseline. Continue supplement oxygen to maintain O2 at or above 90%. 8. End-stage renal disease-on Wednesday, Wednesday, Wednesday hemodialysis through right chest tunneled catheter. Patient undergoing assessment for fistula vascular as outpatient. Has seen Dr. Martin in the past. Consult nephrology to maintain hemodialysis schedule. 9. Status post AICD 10. PVD-patient reports recent vascular studies in which she was to follow-up as outpatient for results. Charlie wraps bilateral lower extremities. 11. GERD-continue PPI. 12. History of tobacco use 13. Obesity-encourage diet and lifestyle modifications. Nutrition consult. DVT prophylaxis-hold Eliquis pending further plans per cardiology. This patient was seen by JUNAID Cason under the supervision of Dr. Ji. <Clemente Ji - Last Filed: 05/11/18 17:20> Problem List (1) NSTEMI (non-ST elevated myocardial infarction) Status: Acute History of Present Illness The patient is a 77 year old F Mayra with chest pain that began on the . Had a troponin of 0.7. Was already anticoagulated with Eliquis. Cardiology has been contacted by the emergency room. Patient has had a history of multiple stents and has had a CABG in the past. Patient had a left heart catheterization a few years ago at the [facility] was apparently negative. Patient was here earlier this month with chest pain but states that this chest pain felt different than that. [] Past Medical History Allergies latex Allergy (Verified 05/11/18 13:30) Anaphylaxis meperidine [From Demerol] Allergy (Verified 05/11/18 13:30) Hives Penicillins Allergy (Verified 05/11/18 13:30) Hives Tetracyclines Allergy (Verified 05/11/18 13:30) Hives aspirin Adverse Reaction (Verified 05/11/18 13:30) Unknown atorvastatin Adverse Reaction (Verified 05/11/18 13:30) Unknown codeine Adverse Reaction (Verified 05/11/18 13:30) Unknown hydromorphone [From Dilaudid] Adverse Reaction (Verified 05/11/18 13:30) Unknown pentazocine Adverse Reaction (Verified 05/11/18 13:30) Unknown pioglitazone Adverse Reaction (Verified 05/11/18 13:30) Unknown propoxyphene Adverse Reaction (Verified 05/11/18 13:30) Unknown sulfamethoxazole [From Bactrim] Adverse Reaction (Verified 05/11/18 13:30) Unknown trimethoprim [From Bactrim] Adverse Reaction (Verified 05/11/18 13:30) Unknown Surgical History: angioplasty, cholecystectomy, coronary bypass surgery, hysterectomy, pacemaker implantation, - Psychiatric History: No pertinent psych hx [employer]IAN History: No pertinent [employer]NICIAN history Lives: With Family Smoking Status: Former smoker Alcohol: None Drugs: None - *Family History Maternal History Items: Hypertension Paternal History Items: Heart Disease Review of Systems Constitutional: Denies: Chills, Fever, Weight Change HEENT: Denies: Head Aches, Sinus Congestion, Sinus Drainage Cardiovascular: Reports: Chest Pain. Denies: Palpitations, Syncope Respiratory: Reports: Shortness of Breath. Denies: Cough, Wheezing Gastrointestinal: Denies: Abdominal Pain, Nausea, Vomiting Genitourinary: Denies: Dysuria Musculoskeletal: Denies: Joint Pain, Joint Tenderness Skin: Denies: Rash, Wounds Neurological: Reports: -. Denies: Focal weakness Psychiatric: Denies: Anxiety, Depression, Homicidal Ideations, Suicidal Ideations Hematologic/ Lymphatic: Denies: Easy Bruising, Easy Bleeding Comment: All review of systems are negative except as mentioned in the history of present illness and the other review of systems. VTE Information - Inpt Only VTE Present on Admission: No VTE Pharm Prophylaxis ordered?: Yes - Physical Exam General: Alert, Cooperative, No apparent distress HEENT: Atraumatic, Normocephalic Neck: No Nodes, Thyroid Normal Size and Texture Lungs: Clear to auscultation, Normal air movement, No rhonchi, No wheeze Cardiovascular: Regular rate, Regular Rhythm, Normal S1, Normal S2, No murmurs Abdomen: Bowel Sounds Present, Soft, Non Tender, Non-Distended, No Hepato- splenomegaly Extremities: - Psych/Mental Status: Normal Affect, Appropriate Vital Signs Temp Pulse Resp BP Pulse Ox 36.7 C 73 20 H 139/76 H 95 05/11/18 17:09 05/11/18 17:09 05/11/18 17:09 05/11/18 17:09 05/11/18 17:09 Oxygen Flow Rate (L/min) 2 Oxygen Delivery Method Nasal Cannula Assessment/Plan Patient seen and examined independently. Data reviewed. I agree with the above note by the nurse practitioner. 1. Non-ST elevation myocardial infarction * Medical management for now, cardiology will be on consultation. Concern is that the patient may need a left heart catheterization. 2. End-stage renal disease * Patient has been on hemodialysis since February vascular catheter in place. * Patient stated that she only completed 2 hours of her dialysis session today * Nephrology will be on consultation * The patient does require left heart catheterization, will need to time dialysis accordingly. Code Visit Inpatient E&M: 50640 Init Hosp L3
--- NOTE | 2018-05-11 16:27 | EKG12_ITS ---
Test Reason : CP ADMISSION Blood Pressure : / mmHG Vent. Rate : 078 BPM Atrial Rate : 078 BPM P-R Int : 000 ms QRS Dur : 182 ms QT Int : 504 ms P-R-T Axes : 000 252 092 degrees QTc Int : 574 ms Electronic ventricular pacemaker Occasional PVCs Confirmed by KEARA COLLIER, AYDE ([id number]), photograph editor JASON OSORIO ([id number]) on 05/13/2018 1:47:26 PM Referred By: Luis Wise Confirmed By:AYDE SARAH MD
[2018-05-11 17:26] LABS: Bedside Glucose 79 mg/dL (70-110)
--- NOTE | 2018-05-11 18:33 | PCM.CONS.R ---
Problem List (1) End stage renal disease Status: Chronic Consultation - Renal 05/11/18 PCP/ Referring MD: Requesting physician: Dr Ji Primary care physician: Mook Rain, Reason for Consultation:: ESRD - History of Present Illness History of Present Illness: The patient is a 77 year old F well known to us. H/o CKD stage 3/4. was admitted at [facility] few months ago with severe CHF. initiated dialysis at that time. was in dialysis unit today and developed chest pain. she was admitted here in the past with similar complaints and had a negative stress test. troponins were noted to be high - Allergies Allergies: Allergies latex Allergy (Verified 05/11/18 13:30) Anaphylaxis meperidine [From Demerol] Allergy (Verified 05/11/18 13:30) Hives Penicillins Allergy (Verified 05/11/18 13:30) Hives Tetracyclines Allergy (Verified 05/11/18 13:30) Hives aspirin Adverse Reaction (Verified 05/11/18 13:30) Unknown atorvastatin Adverse Reaction (Verified 05/11/18 13:30) Unknown codeine Adverse Reaction (Verified 05/11/18 13:30) Unknown hydromorphone [From Dilaudid] Adverse Reaction (Verified 05/11/18 13:30) Unknown pentazocine Adverse Reaction (Verified 05/11/18 13:30) Unknown pioglitazone Adverse Reaction (Verified 05/11/18 13:30) Unknown propoxyphene Adverse Reaction (Verified 05/11/18 13:30) Unknown sulfamethoxazole [From Bactrim] Adverse Reaction (Verified 05/11/18 13:30) Unknown trimethoprim [From Bactrim] Adverse Reaction (Verified 05/11/18 13:30) Unknown - Current Medications Current Medications: Current Medications Hydrocodone Bitart/Acetaminophen ([place] 5mg-325mg) 1 tablet PO TID PRN PRN Reason: PAIN Albuterol Sulfate (Ventolin Aerosols) 2.5 mg INHALATION Q6HWA.RT [facility] Amiodarone HCl (Cordarone) 200 mg PO DAILYCM [facility] Apixaban (Eliquis) 5 mg PO BID [facility] Budesonide (Pulmicort Aerosol) 0.5 mg INHALATION BID.RT [facility] Carvedilol (Coreg) 3.125 mg PO BID [facility] Insulin Glargine (Lantus (Bkc)) 36 units SC QHS [facility] Insulin Glargine (Lantus (Bkc)) 50 units SC BREAKFAST [facility] Isosorbide Mononitrate (Imdur) 60 mg PO DAILY [facility] Magnesium Hydroxide (Milk Of Magnesia) 30 ml PO DAILY PRN PRN Reason: Constipation Nitroglycerin (Nitrostat) 0.4 mg SUBLINGUAL Q5M PRN PRN Reason: CARDIAC/CHEST PAIN Non-Formulary Medication (Insulin Aspart [Novolog Flexpen]) 0 - 100 units SC TIDCM [facility] Ondansetron HCl (Zofran Odt) 4 mg PO Q8H PRN PRN Reason: NAUSEA/VOMITING Pantoprazole Sodium (Protonix) 20 mg PO DAILY [facility] Senna (Senokot) 1 tablet PO QHS PRN PRN PRN Reason: stool softner Simvastatin (Zocor) 40 mg PO QHS [facility] Tramadol HCl (Ultram) 50 mg PO Q6H PRN PRN Reason: PAIN Trazodone HCl (Desyrel) 100 mg PO QHS [facility] - Past Medical History Past Medical History (Chronic Problems): Chronic Problems Hypertension (Chronic) Hyperlipidemia (Chronic) Type 2 diabetes mellitus (Chronic) COPD (chronic obstructive pulmonary disease) (Chronic) Chronic hypoxemic respiratory failure (Chronic) Chronic anticoagulation (Chronic) Atrial fibrillation (Chronic) Coronary artery disease (Chronic) 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) End stage renal disease (Chronic) Diabetic neuropathy (Chronic) Peripheral vascular disease (Chronic) Venous insufficiency of both lower extremities (Chronic) Congestive heart failure (Chronic) History of coronary artery bypass graft (Chronic) 2014 History of PTCA (Chronic) 6 stents per patient - Past Surgical History Surgical History: angioplasty, cholecystectomy, coronary bypass surgery, hysterectomy, pacemaker implantation, - - Social History Smoking Status: Former smoker Alcohol: None Drugs: None - Family History Maternal History Items: Hypertension Paternal History Items: Heart Disease Review of Systems Constitutional: Denies: Chills, Fever, Weight Change HEENT: Denies: Head Aches, Sinus Congestion, Sinus Drainage Cardiovascular: Denies: Chest Pain, Palpitations Respiratory: Denies: Cough, Shortness of breath at rest, Sputum production Gastrointestinal: Denies: Abdominal Pain, Nausea, Vomiting Genitourinary: Denies: Dysuria Musculoskeletal: Denies: Joint Pain, Joint Tenderness Skin: Denies: Rash, Wounds Neurological: Denies: Numbness, Tingling, Focal weakness Psychiatric: Denies: Anxiety, Depression, Homicidal Ideations, Suicidal Ideations Hematologic/ Lymphatic: Denies: Easy Bruising, Easy Bleeding Patient Problems: Active and Suspected Problems NSTEMI (non-ST elevated myocardial infarction) (Acute) - Physical Exam General: Alert, Oriented x3, Cooperative HEENT: Atraumatic, PERRLA, EOMI, Normocephalic Neck: Supple, No JVD, Negative Carotid Bruits Lungs: Clear to auscultation, Normal air movement Cardiovascular: Regular rate, No murmurs Abdomen: Bowel Sounds Present, Soft, Non Tender Extremities: No edema, Capillary Refill Less than 3 Seconds Skin: No rashes, No breakdown Musculoskeletal: No Tenderness to Palpation of Joints or Extremities Neurological: Cranial nerves II-XII grossly intact Psych/Mental Status: Normal Affect, Appropriate Vital Signs Temp Pulse Resp BP Pulse Ox 98.1 F 73 20 H 139/76 H 95 05/11/18 17:09 05/11/18 17:09 05/11/18 17:09 05/11/18 17:09 05/11/18 17:09 Oxygen Flow Rate (L/min) 2 Oxygen Delivery Method Nasal Cannula Intake and Output for Last 24 Hours 05/09/18 05/10/18 05/11/18 23:59 23:59 23:59 Intake Total 100 / 100 Balance 100 / 100 Laboratory Tests Past 24 Hrs 05/11/18 16:50 Troponin I Pending POC Glucose 05/11/18 17:16 POC Glucose 79 Assessment/Plan All Active Problems NSTEMI (non-ST elevated myocardial infarction) (Acute) ESRD. Received about 2 hours worth of HD today. labs are ok. hold off HD for today Chest pain. now with elevated troponins. may need angiogram Anemia. WILLY with HD
--- NOTE | 2018-05-11 18:36 | CON.PCM_ITS ---
Problem List (1) End stage renal disease Status: Chronic Consultation - Renal 05/11/18 PCP/ Referring MD: Requesting physician: Dr Ji Primary care physician: Mook Rain, Reason for Consultation:: ESRD - History of Present Illness History of Present Illness: The patient is a 77 year old F well known to us. H/o CKD stage 3/4. was admitted at our [facility] few months ago with severe CHF. initiated dialysis at that time. was in dialysis unit today and developed chest pain. she was admitted here in the past with similar complaints and had a negative stress test. troponins were noted to be high - Allergies Allergies: Allergies latex Allergy (Verified 05/11/18 13:30) Anaphylaxis meperidine [From Demerol] Allergy (Verified 05/11/18 13:30) Hives Penicillins Allergy (Verified 05/11/18 13:30) Hives Tetracyclines Allergy (Verified 05/11/18 13:30) Hives aspirin Adverse Reaction (Verified 05/11/18 13:30) Unknown atorvastatin Adverse Reaction (Verified 05/11/18 13:30) Unknown codeine Adverse Reaction (Verified 05/11/18 13:30) Unknown hydromorphone [From Dilaudid] Adverse Reaction (Verified 05/11/18 13:30) Unknown pentazocine Adverse Reaction (Verified 05/11/18 13:30) Unknown pioglitazone Adverse Reaction (Verified 05/11/18 13:30) Unknown propoxyphene Adverse Reaction (Verified 05/11/18 13:30) Unknown sulfamethoxazole [From Bactrim] Adverse Reaction (Verified 05/11/18 13:30) Unknown trimethoprim [From Bactrim] Adverse Reaction (Verified 05/11/18 13:30) Unknown - Current Medications Current Medications: Current Medications Hydrocodone Bitart/Acetaminophen ([place] 5mg-325mg) 1 tablet PO TID PRN PRN Reason: PAIN Albuterol Sulfate (Ventolin Aerosols) 2.5 mg INHALATION Q6HWA.RT OSCAR Amiodarone HCl (Cordarone) 200 mg PO DAILYCM OSCAR Apixaban (Eliquis) 5 mg PO BID OSCAR Budesonide (Pulmicort Aerosol) 0.5 mg INHALATION BID.RT OSCAR Carvedilol (Coreg) 3.125 mg PO BID OSCAR Insulin Glargine (Lantus (Bkc)) 36 units SC QHS [facility]SCAR Insulin Glargine (Lantus (Bkc)) 50 units SC BREAKFAST [facility] Isosorbide Mononitrate (Imdur) 60 mg PO DAILY [facility] Magnesium Hydroxide (Milk Of Magnesia) 30 ml PO DAILY PRN PRN Reason: Constipation Nitroglycerin (Nitrostat) 0.4 mg SUBLINGUAL Q5M PRN PRN Reason: CARDIAC/CHEST PAIN Non-Formulary Medication (Insulin Aspart [Novolog Flexpen]) 0 - 100 units SC TIDCM [facility] Ondansetron HCl (Zofran Odt) 4 mg PO Q8H PRN PRN Reason: NAUSEA/VOMITING Pantoprazole Sodium (Protonix) 20 mg PO DAILY [facility] Senna (Senokot) 1 tablet PO QHS PRN PRN PRN Reason: stool softner Simvastatin (Zocor) 40 mg PO QHS [facility] Tramadol HCl (Ultram) 50 mg PO Q6H PRN PRN Reason: PAIN Trazodone HCl (Desyrel) 100 mg PO QHS [facility]SC[facility] - Past Medical History Past Medical History (Chronic Problems): Chronic Problems Hypertension (Chronic) Hyperlipidemia (Chronic) Type 2 diabetes mellitus (Chronic) COPD (chronic obstructive pulmonary disease) (Chronic) Chronic hypoxemic respiratory failure (Chronic) Chronic anticoagulation (Chronic) Atrial fibrillation (Chronic) Coronary artery disease (Chronic) Presence of combination internal cardiac defibrillator (ICD) and pacemaker ( Chronic) End stage renal disease (Chronic) Diabetic neuropathy (Chronic) Peripheral vascular disease (Chronic) Venous insufficiency of both lower extremities (Chronic) Congestive heart failure (Chronic) History of coronary artery bypass graft (Chronic) 2014 History of PTCA (Chronic) 6 stents per patient - Past Surgical History Surgical History: angioplasty, cholecystectomy, coronary bypass surgery, hysterectomy, pacemaker implantation, - - Social History Smoking Status: Former smoker Alcohol: None Drugs: None - Family History Maternal History Items: Hypertension Paternal History Items: Heart Disease Review of Systems Constitutional: Denies: Chills, Fever, Weight Change HEENT: Denies: Head Aches, Sinus Congestion, Sinus Drainage Cardiovascular: Denies: Chest Pain, Palpitations Respiratory: Denies: Cough, Shortness of breath at rest, Sputum production Gastrointestinal: Denies: Abdominal Pain, Nausea, Vomiting Genitourinary: Denies: Dysuria Musculoskeletal: Denies: Joint Pain, Joint Tenderness Skin: Denies: Rash, Wounds Neurological: Denies: Numbness, Tingling, Focal weakness Psychiatric: Denies: Anxiety, Depression, Homicidal Ideations, Suicidal Ideations Hematologic/ Lymphatic: Denies: Easy Bruising, Easy Bleeding Patient Problems: Active and Suspected Problems NSTEMI (non-ST elevated myocardial infarction) (Acute) - Physical Exam General: Alert, Oriented x3, Cooperative HEENT: Atraumatic, PERRLA, EOMI, Normocephalic Neck: Supple, No JVD, Negative Carotid Bruits Lungs: Clear to auscultation, Normal air movement Cardiovascular: Regular rate, No murmurs Abdomen: Bowel Sounds Present, Soft, Non Tender Extremities: No edema, Capillary Refill Less than 3 Seconds Skin: No rashes, No breakdown Musculoskeletal: No Tenderness to Palpation of Joints or Extremities Neurological: Cranial nerves II-XII grossly intact Psych/Mental Status: Normal Affect, Appropriate Vital Signs Temp Pulse Resp BP Pulse Ox 98.1 F 73 20 H 139/76 H 95 05/11/18 17:09 05/11/18 17:09 05/11/18 17:09 05/11/18 17:09 05/11/18 17:09 Oxygen Flow Rate (L/min) 2 Oxygen Delivery Method Nasal Cannula Intake and Output for Last 24 Hours 05/09/18 05/10/18 05/11/18 23:59 23:59 23:59 Intake Total 100 / 100 Balance 100 / 100 Laboratory Tests Past 24 Hrs 05/11/18 16:50 Troponin I Pending POC Glucose 05/11/18 17:16 POC Glucose 79 Assessment/Plan All Active Problems NSTEMI (non-ST elevated myocardial infarction) (Acute) ESRD. Received about 2 hours worth of HD today. labs are ok. hold off HD for today Chest pain. now with elevated troponins. may need angiogram Anemia. WILLY with HD
[2018-05-11] MEDS: Albuterol 2.5 MG/3 ML VIAL.NEB. INHALATION (19:28)
[2018-05-11] MEDS: Budesonide Respules 0.5 MG/2 ML AMPUL.NEB. INHALATION (19:28)
[2018-05-11] MEDS: Carvedilol 3.125 MG TABLET PO (21:29)
[2018-05-11] MEDS: traZODone 100 MG Tablet PO (21:29)
[2018-05-11] MEDS: APIXABAN 5 MG TABLET PO (21:29)
[2018-05-11 23:05] LABS: Bedside Glucose 94 mg/dL (70-110)
[2018-05-12] VITALS (14 sets, daily range): BP systolic 104–120; BP diastolic 47–50; PULSE 50–78; RESP 16–18; TEMP 36.4–37; O2SAT 94–100
[2018-05-12 06:25] LABS: Hematocrit 36.4 % (37-47); Hemoglobin 11.3 g/dl (12.0-15.0); Mean Corpuscular Hgb 30.2 pg (27.0-32.0); Mean Corpuscular Volume 97.3 fL (81-99); Mean Platelet Vol. 9.4 fl (6.2-12.0); Platelet Count 126 K/mm3 (150-450); RBC Distribution Width CV 14.9 % (11.6-14.6); RBC Distribution Width SD 52.7 fl (35.1-43.9); Red Blood Count 3.74 M/mm3 (4.2-5.4); White Blood Count 6.2 K/mm3 (4.4-11.0)
[2018-05-12 06:44] LABS: Scan Indicated on CBC? Y/N NO
[2018-05-12 07:15] LABS: Anion Gap 6 (5-15); BUN 21 mg/dL (7-18); BUN/Creat Ratio 6.4 RATIO (10-20); Calcium,Total 8.8 mg/dL (8.5-10.1); Chloride 101 mmol/L (98-107); Cholesterol 114 mg/dL (200); Creatinine, Serum 3.28 mg/dL (0.55-1.02); EST Glomerular Filtration Rate 15 mL/min (>60); Est Glom Filt Rate - Afr Amer 18 mL/min (>60); Estimated Creatinine Clearance 14.72 ml/min; Glucose 78 mg/dL (74-106); High Density Lipoprotein 37 mg/dL; Potassium 4.1 mmol/L (3.5-5.1); Sodium Level 142 mmol/L (136-145); Triglycerides 98 mg/dL; Very Low Density Lipoprotein 20 mg/dL (5-40)
[2018-05-12] MEDS: Budesonide Respules 0.5 MG/2 ML AMPUL.NEB. INHALATION ×2 (07:30→19:59)
[2018-05-12] MEDS: Albuterol 2.5 MG/3 ML VIAL.NEB. INHALATION ×3 (07:30→19:59)
[2018-05-12] MEDS: Amiodarone 200 MG Tablet PO (09:02)
[2018-05-12] MEDS: Isosorbide Mononitrate 60 MG Tablet PO (09:02)
[2018-05-12] MEDS: Carvedilol 3.125 MG TABLET PO ×2 (09:02→21:14)
[2018-05-12] MEDS: Pantoprazole Sodium 20 MG Tablet PO (09:03)
[2018-05-12] MEDS: APIXABAN 5 MG TABLET PO (09:03)
[2018-05-12 09:41] LABS: Bedside Glucose 87 mg/dL (70-110)
--- NOTE | 2018-05-12 10:53 | PCM.CONS.C ---
Problem List (1) Hypertension Status: Chronic (2) Hyperlipidemia Status: Chronic (3) Atrial fibrillation Status: Chronic (4) Coronary artery disease Status: Chronic (5) Presence of combination internal cardiac defibrillator (ICD) and pacemaker Status: Chronic (6) Peripheral vascular disease Status: Chronic (7) History of coronary artery bypass graft Status: Chronic Comment: 2013 (8) History of PTCA Status: Chronic Comment: 6 stents per patient Reason for Consult Date of Consultation: 05/12/18 Reason for Consultation: Chest pain, coronary disease, status post CABG, hypertension, end-stage renal disease on hemodialysis, COPD, atrial fibrillation History of Present Illness: The patient is a 77 year old F former patient of Dr. Fam'kenia with a history of hypertension, hypercholesterolemia, diabetes, atrial fibrillation on Eliquis therapy, coronary artery disease status post 9 stents, last catheterization was around 5 years ago, ischemic cardiomyopathy status post AICD therapy, end-stage renal disease on hemodialysis. The patient developed recurrent substernal chest pain yesterday afternoon which did not appear to improve with sublingual nitroglycerin. The patient's pain wax and wane off and on for several hours and while at dialysis yesterday developed substernal chest pain as well. She was brought emergently to the [facility] ER where a EKG showed atrial fibrillation with paced ventricular response alternating with ventricular bigeminy and a right bundle branch pattern. No acute changes were noted. Patient's initial troponin was 0.716, decreased down to 0.63 today. Of note she has had a recent admission on 04/22/18 with similar recurrent chest pain symptoms, abnormal troponins and underwent a non-walking nuclear stress test which apparently was negative for inducible ischemia but did show evidence of anterior apical and inferior and infarct. Patient underwent a 2D echo with Doppler today which demonstrates severe pulmonary hypertension with an RVSP of over 70 mmHg, intact mild LV dysfunction with an EF around 55%, consistent with her nuclear ejection fraction of 49%. T. [] Past Medical History Allergies/Adverse Reactions: Allergies latex Allergy (Verified 05/11/18 13:30) Anaphylaxis meperidine [From Demerol] Allergy (Verified 05/11/18 13:30) Hives Penicillins Allergy (Verified 05/11/18 13:30) Hives Tetracyclines Allergy (Verified 05/11/18 13:30) Hives aspirin Adverse Reaction (Verified 05/11/18 13:30) Unknown atorvastatin Adverse Reaction (Verified 05/11/18 13:30) Unknown codeine Adverse Reaction (Verified 05/11/18 13:30) Unknown hydromorphone [From Dilaudid] Adverse Reaction (Verified 05/11/18 13:30) Unknown pentazocine Adverse Reaction (Verified 05/11/18 13:30) Unknown pioglitazone Adverse Reaction (Verified 05/11/18 13:30) Unknown propoxyphene Adverse Reaction (Verified 05/11/18 13:30) Unknown sulfamethoxazole [From Bactrim] Adverse Reaction (Verified 05/11/18 13:30) Unknown trimethoprim [From Bactrim] Adverse Reaction (Verified 05/11/18 13:30) Unknown Home Medications: Ambulatory Orders Medication Instructions Recorded Apixaban [Eliquis] 5 mg PO BID 12/06/17 Budesonide/Formoterol 160/4.5 2 puff INHALATION BID 12/06/17 [Symbicort 160/4.5 Mcg Inhaler (SP)] Isosorbide Mononitrate [Isosorbide 60 mg PO DAILY 12/06/17 Mononitrate ER] Nitroglycerin 0.4 mg SL Q5M PRN 12/06/17 Simvastatin 40 mg PO QHS 12/06/17 Carvedilol [Coreg (Beta Mayra)] 3.125 mg PO BID 04/21/18 Hydrocodone/Acetaminophen [[place] 1 tablet PO TID PRN 04/21/18 5-325 Tablet] Insulin Aspart [Novolog Flexpen] 0 - 100 units SC TIDCM #0 04/21/18 Tramadol HCl [Ultram] 50 mg PO Q6H 04/21/18 Trazodone HCl 100 mg PO QHS 04/21/18 Insulin Glargine,Hum.rec.anlog 36 unit SQ QHS 04/22/18 [Lantus] Insulin Glargine,Hum.rec.anlog 50 unit SQ BREAKFAST 04/22/18 [Lantus] Amiodarone HCl [Amiodarone HCl] 200 mg PO DAILY 05/11/18 Omeprazole [Omeprazole] 20 mg PO DAILY 05/11/18 Ondansetron HCl [Zofran] 4 mg PO Q8H PRN PRN 05/11/18 Sennosides [Senna] 8.6 mg PO QHS PRN PRN 05/11/18 Past Medical History (Chronic Problems): Chronic Problems Hypertension (Chronic) Hyperlipidemia (Chronic) Type 2 diabetes mellitus (Chronic) COPD (chronic obstructive pulmonary disease) (Chronic) Chronic hypoxemic respiratory failure (Chronic) Chronic anticoagulation (Chronic) Atrial fibrillation (Chronic) Coronary artery disease (Chronic) 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) End stage renal disease (Chronic) Diabetic neuropathy (Chronic) Peripheral vascular disease (Chronic) Venous insufficiency of both lower extremities (Chronic) Congestive heart failure (Chronic) History of coronary artery bypass graft (Chronic) 2013 History of PTCA (Chronic) 6 stents per patient Surgical History: angioplasty, cholecystectomy, coronary bypass surgery, hysterectomy, pacemaker implantation, - - *Family History Maternal History Items: Hypertension Paternal History Items: Heart Disease Lives: With Family Smoking Status: Former smoker Tobacco Use: Cigarettes Alcohol: None Drugs: None Review of Systems - Review of Systems General: Denies: Fever, Night Sweats, Fatigue Cardiovascular: Reports: Chest Discomfort, Chest Discomfort at Rest, Shortness of Breath, Shortness of Breath at Rest. Denies: Orthopnea, PND, Peripheral Edema, Palpitations, Lightheadedness, Dizziness, Near Syncope, Syncope Respiratory: Denies: Cough, Sputum Production, Hemoptysis Gastrointestinal: Denies: Hematemesis, Hematochezia, Melena Genitourinary: Denies: Dysuria, Hematuria Skin: Denies: Rash Subjectve: Patient laying in bed, no acute distress. Objective: Vital Signs Temp Pulse Resp BP Pulse Ox 98.6 F 78 18 120/47 L 97 05/12/18 08:56 05/12/18 08:56 05/12/18 08:56 05/12/18 08:56 05/12/18 08:56 Oxygen Flow Rate (L/min) 2 Oxygen Delivery Method Nasal Cannula Intake and Output for Last 24 Hours 05/10/18 05/11/18 05/12/18 23:59 23:59 23:59 Intake Total 160 / 160 Balance 160 / 160 General: Awake, Alert, Oriented x 3 HEENT: PERRL, EOMI, Sclera Non Icteric Neck: Supple, Good ROM, No Lymph Node Enlargement Lungs: Clear to auscultation Cardiovascular: Irregular Rhythm, Normal S1, Normal S2, No Rubs, No Gallops Murmur Murmur: Grade 2/6, Holosystolic Vascular: No Carotid Bruits, Normal Femoral Pulses, Normal Radial Pulses, Normal Dorsalis Pedal Pulse, Normal Posterior Tibial Pulses Abdomen: Bowel Sounds Present, Soft, Non Tender, No HSM, No Organomegaly Extremities: No Cyanosis, No Clubbing, No edema Neurological: No Focal Motor or Sensory Deficit 05/11/18 16:50: Troponin I 0.614 H* 05/11/18 21:08: Troponin I 0.688 H* 05/12/18 06:10: WBC 6.2, RBC 3.74 L, Hgb 11.3 L, Hct 36.4 L, MCV 97.3, MCH 30.2, MCHC 31.0 L, RDW 14.9 H, RDW Differential 52.7 H, Plt Count 126 L, MPV 9.4 05/12/18 06:10: Sodium 142, Potassium 4.1, Chloride 101, Carbon Dioxide 35.0 H, Anion Gap 6, BUN 21 H, Creatinine 3.28 H, Est GFR (MDRD) Af Amer 18 L, Est GFR (MDRD) Non-Af 15 L, BUN/Creatinine Ratio 6.4 L, Glucose 78, Calcium 8.8, Troponin I 0.643 H*, Triglycerides 98, Cholesterol 114, LDL Cholesterol 57, VLDL Cholesterol 20, HDL Cholesterol 37 L Rhythm: EKG: ECHO: Stress Test: Cardiac Cath: PCI: CT Surgery: Holter monitor: EPS: PPM: CXR: Chest CT Scan: Assessment/Plan #1. Ischemic cardiomyopathy: The patient has had several admissions now with substernal chest pain and abnormal troponins with recent stress test this month showing old anterior apical and inferior infarct. Patient has a history of receiving 9 stents in the past, and her last catheterization was around 5 years ago. I recommended the patient be loaded with Plavix 3 mg ?1 now followed by 75 mg a day. Apparently she is unable to take aspirin due to a true aspirin allergy. I recommended she undergo a repeat left her catheterization tomorrow morning. We will hold her Eliquis today and tomorrow. The patient's stents are widely patent and requires no additional therapy, we will resume her Eliquis in 3 days time assuming she has no groin complications. If however she requires intervention, would recommend Plavix 75 mg p.o. twice daily in lieu of baby aspirin. 2. AICD: Patient is status post AICD therapy. She has had no discharges. 3. Hypertension: Patient has evidence of both systemic and severe pulmonary hypertension. Recommend continuing Imdur and Coreg. 4. Atrial fibrillation: Patient is currently on Eliquis therapy as well as amiodarone for heart rate control. We will hold her Eliquis and continue amiodarone at this time for both her ischemic cardiomyopathy as well as her atrial fibrillation. 5. Thank you very much for the opportunity to participate in the cardiac care of your patient. Consultation time was between 830 and 9 AM. Code Visit Inpatient E&M: 15441 Init Hosp L2
[2018-05-12 11:01] LABS: Bedside Glucose 209 mg/dL (70-110)
--- NOTE | 2018-05-12 11:36 | CASEMGMT ---
Addendum entered by Ronald Catherine 05/12/18 11:50: Resume Home Health order faxed to [facility]. Original Note: See RN CM Assessment Link. DC PLAN: Home, resume [facility] PH: [phone] FX: [phone] -Call to [facility]. Pt has RN PT/OT services active. H/P, Demographic sheet faxed to # above. -Pt lives @ home with her daughter. States no additional needs at this time. has home oxygen, nebulizer, walker, states daughter is getting WC. Daughter assists with needs and transportation. -Dialysis @ [facility] [address]. Azar VIRAMONTESN RN ACM
--- NOTE | 2018-05-12 11:43 | PCM.PN.REN ---
Patient Problems: Active and Suspected Problems NSTEMI (non-ST elevated myocardial infarction) (Acute) Subjective: no new complaints chest pain better for cath tomorrow - Physical Exam General: Alert, Oriented x3, Cooperative HEENT: Atraumatic, PERRLA, EOMI, Normocephalic Neck: Supple, No JVD, Negative Carotid Bruits Lungs: Clear to auscultation, Normal air movement Cardiovascular: Regular rate, No murmurs Abdomen: Bowel Sounds Present, Soft, Non Tender Extremities: No edema, Capillary Refill Less than 3 Seconds Skin: No rashes, No breakdown Musculoskeletal: No Tenderness to Palpation of Joints or Extremities Neurological: Cranial nerves II-XII grossly intact Psych/Mental Status: Normal Affect, Appropriate Vital Signs Temp Pulse Resp BP Pulse Ox 98.6 F 78 18 120/47 L 97 05/12/18 08:56 05/12/18 08:56 05/12/18 08:56 05/12/18 08:56 05/12/18 08:56 Oxygen Flow Rate (L/min) 2 Oxygen Delivery Method Nasal Cannula Intake and Output for Last 24 Hours 05/10/18 05/11/18 05/12/18 23:59 23:59 23:59 Intake Total 160 / 160 Balance 160 / 160 Laboratory Tests Past 24 Hrs 05/11/18 05/11/18 05/12/18 16:50 21:08 06:10 WBC 6.2 RBC 3.74 L Hgb 11.3 L Hct 36.4 L MCV 97.3 MCH 30.2 MCHC 31.0 L RDW 14.9 H RDW Differential 52.7 H Plt Count 126 L MPV 9.4 Sodium Potassium Chloride Carbon Dioxide Anion Gap BUN Creatinine Estim Creat Clear Calc Est GFR (MDRD) Af Amer Est GFR (MDRD) Non-Af BUN/Creatinine Ratio Glucose Calcium Troponin I 0.614 H* 0.688 H* Triglycerides Cholesterol LDL Cholesterol VLDL Cholesterol HDL Cholesterol 05/12/18 06:10 WBC RBC Hgb Hct MCV MCH MCHC RDW RDW Differential Plt Count MPV Sodium 142 Potassium 4.1 Chloride 101 Carbon Dioxide 35.0 H Anion Gap 6 BUN 21 H Creatinine 3.28 H Estim Creat Clear Calc 14.72 Est GFR (MDRD) Af Amer 18 L Est GFR (MDRD) Non-Af 15 L BUN/Creatinine Ratio 6.4 L Glucose 78 Calcium 8.8 Troponin I 0.643 H* Triglycerides 98 Cholesterol 114 LDL Cholesterol 57 VLDL Cholesterol 20 HDL Cholesterol 37 L POC Glucose 05/12/18 05/12/18 05/11/18 10:54 06:59 21:23 POC Glucose 209 H 87 94 05/11/18 17:16 POC Glucose 79 Medical Necessity - Tobacco Use Smoking Status: Former smoker Tobacco Use: Cigarettes Assessment/Plan All Active Problems NSTEMI (non-ST elevated myocardial infarction) (Acute) ESRD. Received about 2 hours worth of HD yesterday. labs are ok. hold off HD for today Chest pain. now with elevated troponins. Cath tomorrow Anemia. WILLY with HD
[2018-05-12] MEDS: Insulin Lispro 100 UNIT/ML INSULN.PEN SC (11:44)
[2018-05-12] MEDS: Clopidogrel Bisulfate 300 MG Tablet PO (11:44)
--- NOTE | 2018-05-12 14:36 | CHAPLAIN ---
Type of Pastoral Visit _x__ Initial Visit ___ Follow-up Visit ___ On-call Visit ___ General Patient Visit ___ Spiritual Assessment ___ Family Conference ___ Bereavement ___ Rapid Response ___ Code Blue ___ Other (describe below) Pastoral Care Referral From _x__ Patient ___ Family ___ Nurse ___ Physician ___ Steam Train Driver ___ Operating Room Scheduler ___ Other (describe below) Sacrament/Intervention _x__ Active listening ___ Anointing ___ Buddhism ___ Bereavement ___ Communion _x__ Tammie exploration ___ _x__ Life review _x__ Prayer ___ Reconciliation ___ Sacrament of Sick _x__ Supportive presence ___ Wedding ___ Other (describe below) Pastoral Comments patient is having a heart cath done in the morning; pt has had ongoing heart issues and wants to know what is happening and what is needed now; pt admits to some anxiety; pt also has some family concerns as part of her family does not attend to her and are unavailable to her; pt has one daughter and one granddaughter that are supportive and available to her; pt is of the Jew tammie but does not have a current oriental orthodox; pt asks for prayer
[2018-05-12] MEDS: HYDROcodone Bitartrate/Apap 5/325 Tablet PO (16:10)
[2018-05-12 16:15] LABS: Bedside Glucose 148 mg/dL (70-110)
--- NOTE | 2018-05-12 19:29 | PCM.PROGNOTE ---
Patient Problems: Active and Suspected Problems NSTEMI (non-ST elevated myocardial infarction) (Acute) Subjective: Patient was seen and examined today, she has no complaints of any chest pain, patient is a poor informant regarding her medical history, I talked with her and her daughters who were in the room today. Patient indicated that she was to have an appointment as an outpatient to have a fistula placed for dialysis. She is currently living at home having been released from a nursing facility recently. Patient's cardiac enzymes elevated, she will undergo a cardiac catheterization tomorrow. - Physical Exam General: Alert, Oriented x3, Cooperative, No apparent distress, Well developed HEENT: Atraumatic, PERRLA, EOMI, Normocephalic Oral: Moist Mucosa Neck: Supple, No JVD, No Nuchal Rigidity, Trachea Midline, Thyroid Normal Size and Texture Lungs: Clear to auscultation, Normal air movement, No rhonchi, No wheeze, No rales Cardiovascular: Regular rate - Paced rhythm, Regular Rhythm, Normal S1, Normal S2, No murmurs, No Ectopic Activity Abdomen: Bowel Sounds Present, Soft, Non Tender, Non-Distended, No hernias noted Extremities: No edema, Capillary Refill Less than 3 Seconds Skin: No rashes, No breakdown Musculoskeletal: No Tenderness to Palpation of Joints or Extremities Neurological: Cranial nerves II-XII grossly intact, Neuro grossly intact, Sensory exam intact to light touch and pain, Coordination normal Psych/Mental Status: Normal Affect, Appropriate, Alert and oriented to time, place, person, mood and affect Vital Signs Temp Pulse Resp BP Pulse Ox 97.7 F L 72 16 119/48 L 100 05/12/18 14:55 05/12/18 15:31 05/12/18 14:55 05/12/18 14:55 05/12/18 14:55 Oxygen Flow Rate (L/min) 2 Oxygen Delivery Method Nasal Cannula Intake and Output for Last 24 Hours 05/10/18 05/11/18 05/12/18 23:59 23:59 23:59 Intake Total 160 / 160 250 / 250 Balance 160 / 160 250 / 250 Laboratory Tests Past 24 Hrs 05/11/18 05/12/18 05/12/18 21:08 06:10 06:10 WBC 6.2 RBC 3.74 L Hgb 11.3 L Hct 36.4 L MCV 97.3 MCH 30.2 MCHC 31.0 L RDW 14.9 H RDW Differential 52.7 H Plt Count 126 L MPV 9.4 Sodium 142 Potassium 4.1 Chloride 101 Carbon Dioxide 35.0 H Anion Gap 6 BUN 21 H Creatinine 3.28 H Estim Creat Clear Calc 14.72 Est GFR (MDRD) Af Amer 18 L Est GFR (MDRD) Non-Af 15 L BUN/Creatinine Ratio 6.4 L Glucose 78 Calcium 8.8 Troponin I 0.688 H* 0.643 H* Triglycerides 98 Cholesterol 114 LDL Cholesterol 57 VLDL Cholesterol 20 HDL Cholesterol 37 L POC Glucose 05/12/18 05/12/18 05/12/18 16:09 10:54 06:59 POC Glucose 148 H 209 H 87 05/11/18 21:23 POC Glucose 94 Medical Necessity - Tobacco Use Smoking Status: Former smoker Tobacco Use: Cigarettes Assessment/Plan All Active Problems NSTEMI (non-ST elevated myocardial infarction) (Acute) #1 [id number] will undergo cardiac catheterization tomorrow #2 end-stage renal disease requiring dialysis-nephrology is participating in her care #3 type 2 diabetes-continue present treatment #4 chronic hypoxic respiratory failure-continue to monitor O2 sat #5 chronic atrial fibrillation with paced rhythm #6 chronic obstructive pulmonary disease #7 hypertension #8 hyperlipidemia Code Visit Inpatient E&M: 84570 Subs Hosp L2
[2018-05-12] MEDS: traZODone 100 MG Tablet PO (21:15)
[2018-05-12 21:26] LABS: Bedside Glucose 217 mg/dL (70-110)
[2018-05-13] VITALS (18 sets, daily range): BP systolic 94–129; BP diastolic 35–72; PULSE 53–73; RESP 16–20; TEMP 36.2–36.8; O2SAT 93–99
[2018-05-13 05:30] LABS: Hemoglobin 11.4 g/dl (12.0-15.0); Mean Corp Hgb Conc 31.7 g/gl (32-36); Mean Corpuscular Hgb 31.1 pg (27.0-32.0); Mean Corpuscular Volume 98.1 fL (81-99); Mean Platelet Vol. 9.8 fl (6.2-12.0); Platelet Count 121 K/mm3 (150-450); RBC Distribution Width CV 14.7 % (11.6-14.6); RBC Distribution Width SD 49.9 fl (35.1-43.9); Red Blood Count 3.67 M/mm3 (4.2-5.4)
[2018-05-13 05:36] LABS: International Normalized Ratio 1.7; Prothrombin Time (Protime)PT. 20.3 SECONDS (11.7-14.9)
[2018-05-13] MEDS: Clopidogrel Bisulfate 75 MG Tablet PO (05:55)
[2018-05-13] MEDS: Amiodarone 200 MG Tablet PO (05:55)
[2018-05-13] MEDS: Carvedilol 3.125 MG TABLET PO (05:55)
[2018-05-13] MEDS: Isosorbide Mononitrate 60 MG Tablet PO (05:55)
--- NOTE | 2018-05-13 05:55 | EKG12_ITS ---
Test Reason : PRE HEART CATH Blood Pressure : / mmHG Vent. Rate : 071 BPM Atrial Rate : 071 BPM P-R Int : 000 ms QRS Dur : 204 ms QT Int : 540 ms P-R-T Axes : 000 262 092 degrees QTc Int : 586 ms Electronic ventricular pacemaker Occasional PVCs Reconfirmed by KEARA COLLIER, AYDE ([id number]), medical transcription editor JASON OSORIO ([id number]) on 05/17/2018 3:26:26 PM Referred By: Luis Wise Confirmed By:AYDE SARAH MD
[2018-05-13 06:04] LABS: Anion Gap 9 (5-15); BUN 29 mg/dL (7-18); BUN/Creat Ratio 7.5 RATIO (10-20); Calcium,Total 8.9 mg/dL (8.5-10.1); Chloride 101 mmol/L (98-107); Creatinine, Serum 3.85 mg/dL (0.55-1.02); EST Glomerular Filtration Rate 12 mL/min (>60); Est Glom Filt Rate - Afr Amer 15 mL/min (>60); Estimated Creatinine Clearance 12.54 ml/min; Glucose 120 mg/dL (74-106); Potassium 3.7 mmol/L (3.5-5.1); Sodium Level 140 mmol/L (136-145)
[2018-05-13 06:10] LABS: Scan Indicated on CBC? Y/N NO
[2018-05-13 06:56] LABS: Bedside Glucose 136 mg/dL (70-110)
--- NOTE | 2018-05-13 10:12 | PCM.PN.BLA ---
Progress Note patient is currently in angiogram. dialysis arranged for later today.
--- NOTE | 2018-05-13 10:20 | CL.D_ITS ---
Patient Name: LUZ BACA Study Date: 05/13/2018 Performing: Jesse Hunter MD Ht: 68.11 inches 173 cm : 1940 Wt: 213.85 lbs 97 kg Age: 77 Gender: female BSA: 2.11 PROCEDURE(S) PERFORMED ME93-HHE/COR/LV/CABG [id number] RENAL ANGIO WITH HEART CATH CLINICAL PROFILE AND INDICATIONS Indications: ACS > 24 hrs, New Onset Angina <= 2 months, Worsening Angina, Stable Known CAD, Susp ected CAD, Cardiac Arrythmia, LV Dysfunction Heart Failure: NYHA Class: 1, Newly Diagnosed: No, Heart Failure Type: Systolic Stress/Imaging Stress/Image Study Performed: No Angina Classification Anginal Classification w/in 2 Weeks: CCS IV CAD Presentations: Non-STEMI. Symptom onset Date/Time: 05/11/2018 Time Not Available Comorbidities/Risk Factors: Hypertension Dyslipidemia Prior CHF Prior PCI Prior CABG Currently On Dialysis Diabetes Mellitus: Diabetes Therapy: Oral CONCLUSIONS Double vessel CAD of the LAD and RCA Perserved Left Ventricular systolic function with normal EDP Segmented LV systolic dysfunction- Moderate LVEF: by LV gram 55-60 % Widely patent full metal jacket of RCA with 30% distal RCA in stent restenosis. Occluded SVG to RCA (old) Patent VU To LAD. RECOMMENDATIONS Dialysis today, stop plavix, restart eliquis on 05/16/18. f/u either with Dr Hunter per pt request. DESCRIPTION OF PROCEDURE The patient arrived to the procedure lab. The risks and benefits of the procedure as well as a full d escription of our services here and current unavailability of surgical backup were fully explained to the patient and/or their significant other prior to the catheterization. The Timeout was completed, verifying the correct patient and procedure. The patient's procedural site was prepped and draped in the usual fashion. Local anesthetic was given subcutaneously to right groin region with Lidocaine 2%. Using a modified Seldinger technique, arterial access was obtained via the right femoral artery, a 4 Fr sheath was inserted Left Coronary Artery selective angiography was performed in multiple views us ing a 4 Fr. JL5 catheter. Right Coronary Artery selective angiography was then performed in multiple views using a 4 Fr. 3DRC catheter. Left internal mammary artery graft to the LAD selective angiograph y was performed in multiple views using a 4 Fr. 3DRC catheter. Left Ventriculography was performed in HORAN projection using a 4 Fr. Pigtail catheter. LV to AO pullback pressures were then recorded.The ar terial sheath was pulled and manual compression applied until hemostasis is achieved. CORONARY ANGIOGRAPHY DOMINANCE: Right Dominant LEFT HEART ASSESSMENT Left Ventricular Ejection Fraction: by LV Gram 55-60 % Apical Hypokinesis - Moderate Depressed Left Ventricular systolic function LEFT MAIN: Angiographically normal LEFT ANTERIOR DECENDING ARTERY: MID LAD: 75 % Stenosis CIRCUMFLEX ARTERY: Mild luminal irregularities less than 30% RIGHT CORONARY ARTERY: Previously placed stent is patent GRAFTS: VU graft to the LAD is patent Saphenous Vein graft to the RCA is totally occluded COMPLICATIONS No Complications PROCEDURE MEDICATIONS Oxygen: 2 L/min via nasal cannula SUMMARY OF HEMODYNAMIC DATA Time AIR REST ECG 09:38:59 AO 130/62 (84) SA 09:49:04 LV 118/4, 18 10:00:01 LV 119/-2, 6 10:00:07 LVp 118/-3, 5 10:00:13 AOp 110/49 (72) 10:00:18 Signed By Jesse Hunter MD On 05/13/2018 10:19:59 Jesse Hunter MD
[2018-05-13] MEDS: Pantoprazole Sodium 20 MG Tablet PO (11:39)
--- NOTE | 2018-05-13 11:43 | CASEMGMT ---
EDSON FLORES NOTE: Call to [facility] and informed them pt to be discharged today. Will fax D/C info to them once it is available. Amber BUSH RN CM
[2018-05-13 11:45] LABS: Bedside Glucose 125 mg/dL (70-110)
[2018-05-13] MEDS: Albuterol 2.5 MG/3 ML VIAL.NEB. INHALATION ×2 (13:44→19:09)
--- NOTE | 2018-05-13 17:08 | DCINST_ITS ---
- Discharge Diagnoses Current Active Problems: Current Active and Chronic Problems NSTEMI (non-ST elevated myocardial infarction) (Acute) You will use the following diet at home:: Calorie/Carbohydrate Controlled ( specify 1200, 1400, etc) - 1800 eddie Your food should be the consistency of: Regular Your liquids should be the consistency of: Regular/Thin Discharge Activity: Return to Normal Activity Weight Bearing Status: Full weight bearing Allergies/Adverse Reactions: Allergies latex Allergy (Verified 05/11/18 13:30) Anaphylaxis meperidine [From Demerol] Allergy (Verified 05/11/18 13:30) Hives Penicillins Allergy (Verified 05/11/18 13:30) Hives Tetracyclines Allergy (Verified 05/11/18 13:30) Hives aspirin Adverse Reaction (Verified 05/11/18 13:30) Unknown atorvastatin Adverse Reaction (Verified 05/11/18 13:30) Unknown codeine Adverse Reaction (Verified 05/11/18 13:30) Unknown hydromorphone [From Dilaudid] Adverse Reaction (Verified 05/11/18 13:30) Unknown pentazocine Adverse Reaction (Verified 05/11/18 13:30) Unknown pioglitazone Adverse Reaction (Verified 05/11/18 13:30) Unknown propoxyphene Adverse Reaction (Verified 05/11/18 13:30) Unknown sulfamethoxazole [From Bactrim] Adverse Reaction (Verified 05/11/18 13:30) Unknown trimethoprim [From Bactrim] Adverse Reaction (Verified 05/11/18 13:30) Unknown Medications to take at Discharge Budesonide/Formoterol 160/4.5 [Symbicort 160/4.5 Mcg Inhaler (SP)] 2 puff INHALATION BID 12/06/17 Isosorbide Mononitrate [Isosorbide Mononitrate ER] 60 mg PO DAILY 12/06/17 Nitroglycerin 0.4 mg SL Q5M PRN 12/06/17 Simvastatin 40 mg PO QHS 12/06/17 Carvedilol [Coreg (Beta Mayra)] 3.125 mg PO BID 04/21/18 Hydrocodone/Acetaminophen [[place] 5-325 Tablet] 1 tablet PO TID PRN 04/21/18 Insulin Aspart [Novolog Flexpen] 0 - 100 units SC TIDCM #0 04/21/18 Tramadol HCl [Ultram] 50 mg PO Q6H 04/21/18 Trazodone HCl 100 mg PO QHS 04/21/18 Insulin Glargine,Hum.rec.anlog [Lantus] 36 unit SQ QHS 04/22/18 Insulin Glargine,Hum.rec.anlog [Lantus] 50 unit SQ BREAKFAST 04/22/18 Amiodarone HCl 200 mg PO DAILY 05/11/18 Omeprazole 20 mg PO DAILY 05/11/18 Ondansetron HCl [Zofran] 4 mg PO Q8H PRN PRN 05/11/18 Sennosides [Senna] 8.6 mg PO QHS PRN PRN 05/11/18 Apixaban [Eliquis] 5 mg PO BID #0 05/13/18 Primary Care Physician: Mook Rain MD [Primary Care Provider] - Please follow up with your Primary Care Physician in: in 1-2 weeks Test Results: Test results from this visit will be discussed in further detail at your follow- up appointment, if applicable.
[2018-05-13] MEDS: Budesonide Respules 0.5 MG/2 ML AMPUL.NEB. INHALATION (19:09)
--- NOTE | 2018-05-13 20:06 | DIALYSIS ---
Hemodialysis tx complete. Dialysate bath 4231 with 1500 mls off well tolerated. Dressing changed site benign. Report to Ashley
--- NOTE | 2018-05-16 09:29 | PCM.DC.SUM ---
Discharge Date and Diagnosis Date of Admission: 05/11/18 - Primary Discharge Diagnosis 1 non-STEMI #2 end-stage renal disease requiring dialysis #3 type 2 diabetes-continue present treatment #4 chronic hypoxic respiratory failure #5 chronic atrial fibrillation with paced rhythm #6 chronic obstructive pulmonary disease #7 hypertension #8 hyperlipidemia #9 coronary artery disease #10 severe pulmonary hypertension - Secondary Discharge Diagnosis Chronic Problems Hypertension (Chronic) Hyperlipidemia (Chronic) Type 2 diabetes mellitus (Chronic) COPD (chronic obstructive pulmonary disease) (Chronic) Chronic hypoxemic respiratory failure (Chronic) Chronic anticoagulation (Chronic) Atrial fibrillation (Chronic) Coronary artery disease (Chronic) 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 Workup in the emergency room included labs which showed an elevated troponin of 0.71, EKG revealed a paced rhythm, creatinine was elevated. Patient was admitted to PCU, cardiac enzymes were cycled they trended downward but were still elevated. Patient was seen in consultation by cardiology and nephrology. Echocardiogram was obtained which showed a normal ejection fraction but severe pulmonary hypertension. Patient underwent dialysis during her hospitalization, she also underwent a cardiac catheterization which showed no evidence of occlusive coronary disease. On 05/13/18, patient was seen and examined and felt to be in stable condition for discharge home Discharge Activity: Return to Normal Activity Weight Bearing Status: Full weight bearing Home Medications: Medications to take at Discharge Budesonide/Formoterol 160/4.5 [Symbicort 160/4.5 Mcg Inhaler (SP)] 2 puff INHALATION BID 12/06/17 Isosorbide Mononitrate [Isosorbide Mononitrate ER] 60 mg PO DAILY 12/06/17 Nitroglycerin 0.4 mg SL Q5M PRN 12/06/17 Simvastatin 40 mg PO QHS 12/06/17 Carvedilol [Coreg (Beta Mayra)] 3.125 mg PO BID 04/21/18 Hydrocodone/Acetaminophen [[place] 5-325 Tablet] 1 tablet PO TID PRN 04/21/18 Insulin Aspart [Novolog Flexpen] 0 - 100 units SC TIDCM #0 04/21/18 Tramadol HCl [Ultram] 50 mg PO Q6H 04/21/18 Trazodone HCl 100 mg PO QHS 04/21/18 Insulin Glargine,Hum.rec.anlog [Lantus] 36 unit SQ QHS 04/22/18 Insulin Glargine,Hum.rec.anlog [Lantus] 50 unit SQ BREAKFAST 04/22/18 Amiodarone HCl 200 mg PO DAILY 05/11/18 Omeprazole 20 mg PO DAILY 05/11/18 Ondansetron HCl [Zofran] 4 mg PO Q8H PRN PRN 05/11/18 Sennosides [Senna] 8.6 mg PO QHS PRN PRN 05/11/18 Apixaban [Eliquis] 5 mg PO BID #0 05/13/18 Clopidogrel Bisulfate [Plavix] 75 mg PO DAILY #30 tab 05/13/18 Following Prescrptions Were Given to Patient: Clopidogrel Bisulfate [Plavix] 75 mg PO DAILY #30 tab Primary Care Physician: Mook Rain MD [Primary Care Provider] - Please follow up with your Primary Care Physician in: in 1-2 weeks Disposition: Home Minutes spent on discharge:: 35 Patient Condition:: Stable Medical Necessity - Tobacco Use Smoking Status: Former smoker Tobacco Use: Cigarettes Meaningful Use Info Meaningful Use Diagnoses (Choose all that apply): AMI - AMI Aspirin given w/in 24hrs of arrival?: No Reason no aspirin w/in 24hrs of arrival?: Allergy ASA at discharge?: No Reason ASA not ordered:: Allergy Statins at discharge?: Yes Charlie/ARB at discharge?: No Reason Charlie/ARB not ordered:: Not indicated Beta Mayra at discharge?: Yes Done w/ Acute PR measure.: Yes Code Visit Inpatient E&M: 93678 Disch Hosp
--- NOTE | 2018-05-16 09:42 | DS.PCM_ITS ---
Discharge Date and Diagnosis Date of Admission: 05/11/18 - Primary Discharge Diagnosis 1 non-STEMI #2 end-stage renal disease requiring dialysis #3 type 2 diabetes-continue present treatment #4 chronic hypoxic respiratory failure #5 chronic atrial fibrillation with paced rhythm #6 chronic obstructive pulmonary disease #7 hypertension #8 hyperlipidemia #9 coronary artery disease #10 severe pulmonary hypertension - Secondary Discharge Diagnosis Chronic Problems Hypertension (Chronic) Hyperlipidemia (Chronic) Type 2 diabetes mellitus (Chronic) COPD (chronic obstructive pulmonary disease) (Chronic) Chronic hypoxemic respiratory failure (Chronic) Chronic anticoagulation (Chronic) Atrial fibrillation (Chronic) Coronary artery disease (Chronic) Presence of combination internal cardiac defibrillator (ICD) and pacemaker ( Chronic) End stage renal disease (Chronic) Diabetic neuropathy (Chronic) Peripheral vascular disease (Chronic) Venous insufficiency of both lower extremities (Chronic) Congestive heart failure (Chronic) History of coronary artery bypass graft (Chronic) 2014 History of PTCA (Chronic) 6 stents per patient Hospital Course and Treatment Procedures: 2-D Echocardiogram, Cardiac catheterization Summary of Care Provided: The patient is a 77 year old F who was seen in the emergency room at [facility] with chief complaint of precordial chest pain with nausea and diaphoresis during dialysis. Workup in the emergency room included labs which showed an elevated troponin of 0.71, EKG revealed a paced rhythm, creatinine was elevated. Patient was admitted to PCU, cardiac enzymes were cycled they trended downward but were still elevated. Patient was seen in consultation by cardiology and nephrology. Echocardiogram was obtained which showed a normal ejection fraction but severe pulmonary hypertension. Patient underwent dialysis during her hospitalization, she also underwent a cardiac catheterization which showed no evidence of occlusive coronary disease. On 05/13, patient was seen and examined and felt to be in stable condition for discharge home Discharge Activity: Return to Normal Activity Weight Bearing Status: Full weight bearing Home Medications: Medications to take at Discharge Budesonide/Formoterol 160/4.5 [Symbicort 160/4.5 Mcg Inhaler (SP)] 2 puff INHALATION BID 12/06/17 Isosorbide Mononitrate [Isosorbide Mononitrate ER] 60 mg PO DAILY 12/06/17 Nitroglycerin 0.4 mg SL Q5M PRN 12/06/17 Simvastatin 40 mg PO QHS 12/06/17 Carvedilol [Coreg (Beta Mayra)] 3.125 mg PO BID 04/21/18 Hydrocodone/Acetaminophen [[place] 5-325 Tablet] 1 tablet PO TID PRN 04/21/18 Insulin Aspart [Novolog Flexpen] 0 - 100 units SC TIDCM #0 04/21/18 Tramadol HCl [Ultram] 50 mg PO Q6H 04/21/18 Trazodone HCl 100 mg PO QHS 04/21/18 Insulin Glargine,Hum.rec.anlog [Lantus] 36 unit SQ QHS 04/22/18 Insulin Glargine,Hum.rec.anlog [Lantus] 50 unit SQ BREAKFAST 04/22/18 Amiodarone HCl 200 mg PO DAILY 05/11/18 Omeprazole 20 mg PO DAILY 05/11/18 Ondansetron HCl [Zofran] 4 mg PO Q8H PRN PRN 05/11/18 Sennosides [Senna] 8.6 mg PO QHS PRN PRN 05/11/18 Apixaban [Eliquis] 5 mg PO BID #0 05/13/18 Clopidogrel Bisulfate [Plavix] 75 mg PO DAILY #30 tab 05/13/18 Following Prescrptions Were Given to Patient: Clopidogrel Bisulfate [Plavix] 75 mg PO DAILY #30 tab Primary Care Physician: Mook Rain MD [Primary Care Provider] - Please follow up with your Primary Care Physician in: in 1-2 weeks Disposition: Home Minutes spent on discharge:: 35 Patient Condition:: Stable Medical Necessity - Tobacco Use Smoking Status: Former smoker Tobacco Use: Cigarettes Meaningful Use Info Meaningful Use Diagnoses (Choose all that apply): AMI - AMI Aspirin given w/in 24hrs of arrival?: No Reason no aspirin w/in 24hrs of arrival?: Allergy ASA at discharge?: No Reason ASA not ordered:: Allergy Statins at discharge?: Yes Charlie/ARB at discharge?: No Reason Charlie/ARB not ordered:: Not indicated Beta Mayra at discharge?: Yes Done w/ Acute AL measure.: Yes Code Visit Inpatient E&M: 63250 Disch Hosp
--- NOTE | 2018-05-17 14:23 | CASEMGMT ---
Received call from [facility] and they state that they were not aware that pt was discharged. Advised them that CM spoke with them on wednesday to notify of discharge and discharge summary/instructions were faxed wednesday evening when obtained. She states that she does see where they were notified of discharge but that they do not have discharge paperwork. Discharge paperwork re-faxed at this time. Doyle SANDHU CM
== END 2018-05-13 20:10 | disposition home health service (06) | DRG 280 ==
LOC: ED 14:08 → PCU 15:49
PROVIDERS: Internal Medicine Cardiovascular Disease; Emergency Provider Emergency Medicine; Family Provider Family Medicine; PCP Family Medicine; Visit Provider Internal Medicine
DX: I21.4 Non-ST elevation (NSTEMI) myocardial infarction (principal); N18.6 End stage renal disease; I13.2 Hypertensive heart and chronic kidney disease with heart failure and with stage 5 chronic kidney disease, or end stage renal disease; J96.11 Chronic respiratory failure with hypoxia; I50.22 Chronic systolic (congestive) heart failure; E11.22 Type 2 diabetes mellitus with diabetic chronic kidney disease; Z99.2 Dependence on renal dialysis; I48.2 Chronic atrial fibrillation; J44.9 Chronic obstructive pulmonary disease, unspecified; I25.10 Atherosclerotic heart disease of native coronary artery without angina pectoris; E78.5 Hyperlipidemia, unspecified; I27.20 Pulmonary hypertension, unspecified; Z95.1 Presence of aortocoronary bypass graft; E11.51 Type 2 diabetes mellitus with diabetic peripheral angiopathy without gangrene; E11.40 Type 2 diabetes mellitus with diabetic neuropathy, unspecified; Z95.810 Presence of automatic (implantable) cardiac defibrillator; Z87.891 Personal history of nicotine dependence; I25.5 Ischemic cardiomyopathy; E66.9 Obesity, unspecified; Z68.32 Body mass index [BMI] 32.0-32.9, adult; Z71.3 Dietary counseling and surveillance; K21.9 Gastro-esophageal reflux disease without esophagitis
CPT/HCPCS: 36415; 71045; 75625; 80048; 80061; 82962; 84484; 85025; 85027; 85610; 85730; 90937; 93005; 93306; 93459; 94640; 99285; J7030; A4216; C1769; C1894; G0257; Q9967

== ENCOUNTER 2018-05-19 11:34 | Emergency (ER) | payer MEDICARE, SELFPAY ==
[2018-05-19 11:36] VITALS: BP 115/57; PULSE 64; RESP 16; TEMP 36.6; O2SAT 88
--- NOTE | 2018-05-19 12:04 | RAD_ITS ---
STUDY: X-RAY CHEST REASON FOR EXAM: Female, 77 years old. 4 day history of chest pain. TECHNIQUE: Single AP portable view of the chest. COMPARISON: Comparison is made with prior study dated May 11, 2018. FINDINGS: EKG electrodes are seen. A right-sided double lumen catheter is seen with the tip at the junction of the superior vena cava and right atrium. Stable pleural parenchymal changes at the left lung base. The right lung is clear. Sternal cerclage wires and vascular clips are present from a prior sternotomy and coronary artery bypass graft procedure (CABG). Moderate cardiomegaly. Normal mediastinum and samuel. Normal visualized pulmonary arteries. Normal visualized aortic arch and descending thoracic aorta. There are degenerative changes of the visualized thoracic spine. Normal visualized ribs, clavicles, and shoulders. There is no demonstrated abnormality of the visualized soft tissue structures of the upper abdomen. RAD/Chest 1 View (Portable) IMPRESSION: Stable pleural parenchymal changes at the left lung base. The right lung is clear. Electronically Signed: Antonio Pascual MD at 12:56 EDT Tel [phone], Service support ,
--- NOTE | 2018-05-19 12:06 | EKG12_ITS ---
Test Reason : SOB Blood Pressure : / mmHG Vent. Rate : 060 BPM Atrial Rate : 059 BPM P-R Int : 000 ms QRS Dur : 222 ms QT Int : 574 ms P-R-T Axes : 000 -86 096 degrees QTc Int : 574 ms Ventricular-paced rhythm Abnormal ECG Confirmed by KEARA COLLIER, AYDE ([id number]), scientific publications editor JASON OSORIO ([id number]) on 05/23/2018 2:25:58 PM Referred By: RAMANA Confirmed By:AYDE SARAH MD
--- NOTE | 2018-05-19 12:11 | CT_ITS ---
STUDY: CTA CHEST REASON FOR EXAM: Female, 77 years old. INTERMITTENT CP X 4 DAYS, SOB, STENTS X 9, HTN, PACER/ICD,CABG, PT ON DIALYSIS M-W- RADIATION DOSAGE (If Supplied By Facility): CTDIvol = ( 20.44 ) mGy, DLP = ( 707.58 ) mGycm TECHNIQUE: The examination was performed with the intravenous administration of 100 ml of Isovue 370 contrast material. Post-processing of the angiographic images was performed, with multiplanar reformation and 3D reconstruction. Individualized dose optimization techniques were used for this CT. COMPARISON: CR Chest May 19 2018 12:26pm FINDINGS: Epigastric ventral hernia containing inflamed fat and minimal fluid. There are coronary arterial calcifications. Multiple median sternotomy wires are noted consistent for cardiac surgery. Right internal jugular vascular line. The tip is in the superior vena caval - atrial junction. The heart is enlarged. There is a hiatal hernia. There are degenerative changes of the shoulders. There is no pneumothorax. Chronic appearing left pleural effusion. Left calcified pleural plaques. Right upper lobe calcified granuloma. There is diffuse interlobular septal thickening. Left lower lobe scarring. There is a left sided pacemaker battery pack. There are calcifications of the coronary arteries. Normal mediastinum. Normal hilar regions. Normal pulmonary arteries. There is atherosclerotic calcification of the aortic arch with tortuosity and elongation of the aortic arch and descending thoracic aorta. There are multi-level degenerative changes of the thoracic spine. There is no demonstrated abnormality of the visualized upper abdomen. CT/CTA Chest W/WO Contrast IMPRESSION: No demonstrated pulmonary embolism or arterial dissection. Findings suggesting early congestive heart failure. Epigastric ventral hernia containing inflamed fat and minimal fluid. Electronically Signed: Theo Diego MD at 18:02 EDT , Service support ,
--- NOTE | 2018-05-19 12:12 | ED.VISSUMM ---
- ER Visit Summary Date of Service: 05/19/18 Chief Complaint: Chest pain History of Present Illness: The patient is a 77 F with chest pain for the past 4 days. She describes a sudden sharp pain with shortness of breath. She was admitted end of April with chest pain and had a heart cath. She is back to her PCPs office today for follow-up and was sent to the ER. Patient does have 9 cardiac stents and has had bypass surgery. She does have a pacemaker/ICD. Physical Examination: Vital signs remarkable for pulse ox of 88% on 3 L nasal cannula in triage. The time of my examination her O2 sat is 100% on 2 1/2 L of nasal cannula which is her baseline. Patient sitting upright in bed no acute distress. Head neck examination is normal. Heart is regular rate and rhythm. Lung sounds are clear. She does have anterior chest wall tenderness. Abdomen is soft with epigastric tenderness. There is no guarding or rebound. Lower extreme examination reveals chronic venous skin changes. No significant edema is noted. Test Results: EKG is ventricular paced at 60. This is unchanged when compared to prior study. Chest x-ray shows stable pleural parenchymal changes at the left lung base. CBC was normal white count. Hemoglobin is 11.2 and platelet count is 124,000. This appears consistent with prior values. Chemistry studies are significant for creatinine of 3.31. LFTs and lipase are normal. INR is 1.7. Troponin is 0.672. This is consistent with her recent hospital admission when she had the heart cath that was unremarkable. I think this is chronically elevated secondary to her chronic renal failure. Emergency Department Course and Treatment: Patient received morphine and Zofran. On repeat evaluation she is resting comfortably. Primary care physician was concerned for PE and patient was sent for a CTA. The result of this is currently pending will be signed out to oncoming physician. This is been discussed with the patient as well. If the CTA is negative patient will be discharged home. She has [place] and Ultram that she will take as needed. She is to follow with her primary care physician. Treatment Plan: [] Disposition: Pending CTA results Impression: Chest pain This note was generated with Tradono dictation software. It may contain incorrect words, spelling, and punctuation that were not noted in review of the chart prior to signing ED Disposition - Plan for ED Patient: Chief Complaint: Shortness of Breath Referrals: Mook Rain MD [Primary Care Provider] -
[2018-05-19] MEDS: Morphine 4 MG/ML Syringe IV (12:58)
[2018-05-19] MEDS: Ondansetron 4 MG/2 ML Vial IV (12:58)
[2018-05-19 13:01] LABS: Absolute Lymphocyte Count 1.34 X10^3/ul (0.83-4.51); Absolute Neutrophil Count 3.8 X10^3/uL (2.0-7.7); Basophil# 0.03 X10^3/uL; Basophil% 0.5 % (0-1); Eosinophil# 0.24 X10^3/uL; Hematocrit 36.4 % (37-47); Hemoglobin 11.2 g/dl (12.0-15.0); International Normalized Ratio 1.7; Lymphocyte # 1.34 X10^3/ul (4.0); Lymphocyte % 22.4 % (19-41); Mean Corp Hgb Conc 30.8 g/gl (32-36); Mean Corpuscular Hgb 30.3 pg (27.0-32.0); Mean Corpuscular Volume 98.4 fL (81-99); Mean Platelet Vol. 9.2 fl (6.2-12.0); Monocyte# 0.56 X10^3/uL; Monocyte% 9.3 % (0-10); Neutrophil # 3.81 X10^3/uL (2.7-7.7); Neutrophil % 63.6 % (47-70); Platelet Count 124 K/mm3 (150-450); Prothrombin Time (Protime)PT. 20.1 SECONDS (11.7-14.9); RBC Distribution Width CV 15.1 % (11.6-14.6); RBC Distribution Width SD 53.8 fl (35.1-43.9)
[2018-05-19 13:02] LABS: POSITIVE COUNT NO; POSITIVE DIFFERENTIAL NO; POSITIVE MORPHOLOGY NO; Partial Thromboplast Time 34.9 Seconds (24.1-36.2)
[2018-05-19 13:14] LABS: AST(SGOT) 19 U/L (15-37); Alanine Aminotransfer ALT/SGPT 18 U/L (13-56); Albumin, Serum 3.1 g/dL (3.2-5.0); Alkaline Phosphatase 87 U/L (45-117); Anion Gap 8 (5-15); BUN 16 mg/dL (7-18); BUN/Creat Ratio 4.8 RATIO (10-20); Calcium,Total 8.7 mg/dL (8.5-10.1); Chloride 99 mmol/L (98-107); Creatinine, Serum 3.31 mg/dL (0.55-1.02); EST Glomerular Filtration Rate 14 mL/min (>60); Est Glom Filt Rate - Afr Amer 17 mL/min (>60); Estimated Creatinine Clearance 13.67 ml/min; Globulin 4.1 g/dL (2.2-4.2); Glucose 135 mg/dL (74-106); Lipase 253 U/L (73-393); Potassium 3.8 mmol/L (3.5-5.1); Protein, Total 7.2 g/dL (6.4-8.2); Sodium Level 141 mmol/L (136-145)
[2018-05-19 14:10] VITALS: BP 114/48; PULSE 60; RESP 20; O2SAT 95
[2018-05-19 15:56] VITALS: BP 120/86; PULSE 67; RESP 21
--- NOTE | 2018-05-19 17:28 | ED.DEP ---
ED Disposition - Plan for ED Patient: Disposition: Home or Assisted Living Chief Complaint: Shortness of Breath Instructions: ED Chest Pain Atypical Unkn Cause Referrals: Mook Rain MD [Primary Care Provider] - 1 Week
[2018-05-19 17:42] VITALS: BP 117/61; PULSE 64; RESP 15; O2SAT 98
[2018-05-19 17:52] VITALS: BMI 20.1
[2018-05-19 19:17] VITALS: BP 113/57; PULSE 78; RESP 24; O2SAT 97
--- NOTE | 2018-05-20 11:09 | CM.ED ---
ED CALL BACK: Follow-up call placed to patient. Voice recording told me that the contact number listed is no longer in service.
== END 2018-05-19 19:17 | disposition home or self-care (01) ==
PROVIDERS: Emergency Provider Emergency Medicine; Family Provider Family Medicine; PCP Family Medicine
DX: R07.9 Chest pain, unspecified (principal); K43.9 Ventral hernia without obstruction or gangrene; Z95.1 Presence of aortocoronary bypass graft; Z95.5 Presence of coronary angioplasty implant and graft; I25.10 Atherosclerotic heart disease of native coronary artery without angina pectoris; I25.2 Old myocardial infarction; I13.2 Hypertensive heart and chronic kidney disease with heart failure and with stage 5 chronic kidney disease, or end stage renal disease; E11.22 Type 2 diabetes mellitus with diabetic chronic kidney disease; N18.6 End stage renal disease; I50.9 Heart failure, unspecified; J44.9 Chronic obstructive pulmonary disease, unspecified; I48.91 Unspecified atrial fibrillation; G47.33 Obstructive sleep apnea (adult) (pediatric); F41.9 Anxiety disorder, unspecified; Z95.810 Presence of automatic (implantable) cardiac defibrillator; Z99.2 Dependence on renal dialysis; Z79.01 Long term (current) use of anticoagulants; Z79.4 Long term (current) use of insulin; Z79.899 Other long term (current) drug therapy; Z87.891 Personal history of nicotine dependence
CPT/HCPCS: 71045; 71275; 80048; 80076; 83690; 84484; 85025; 85610; 85730; 93005; 96374; 96375; 99285; J7030; Q9967; A4216; J2405

== ENCOUNTER 2018-08-17 15:52 | Observation (INO) | payer MEDICARE, SELFPAY ==
[2018-08-17 06:10] VITALS: BP 95/40; PULSE 67; RESP 20; TEMP 36.5; O2SAT 98; BMI 30.3
[2018-08-17 16:19] VITALS: BMI 33.3
[2018-08-17 16:27] VITALS: BMI 33.3
[2018-08-17 16:45] VITALS: BP 116/55; PULSE 98; RESP 18; TEMP 36.6; O2SAT 92
[2018-08-17 16:55] LABS: Bedside Glucose 85 mg/dL (70-110)
[2018-08-17] MEDS: Electrolyte Solution/Peg's 4000 ML PO (17:04)
[2018-08-17 17:58] LABS: Absolute Lymphocyte Count 1.07 X10^3/ul (0.83-4.51); Absolute Neutrophil Count 4.3 X10^3/uL (2.0-7.7); Basophil# 0.02 X10^3/uL; Basophil% 0.3 % (0-1); Eosinophils% 3.1 % (0-5); Hematocrit 43.1 % (37-47); Hemoglobin 13.5 g/dl (12.0-15.0); Lymphocyte # 1.07 X10^3/ul (4.0); Lymphocyte % 16.5 % (19-41); Mean Corp Hgb Conc 31.3 g/gl (32-36); Mean Corpuscular Hgb 31.3 pg (27.0-32.0); Mean Corpuscular Volume 99.8 fL (81-99); Mean Platelet Vol. 9.5 fl (6.2-12.0); Monocyte# 0.83 X10^3/uL; Monocyte% 12.8 % (0-10); Neutrophil # 4.33 X10^3/uL (2.7-7.7); Platelet Count 137 K/mm3 (150-450); RBC Distribution Width CV 14.4 % (11.6-14.6); RBC Distribution Width SD 51.9 fl (35.1-43.9); Red Blood Count 4.32 M/mm3 (4.2-5.4); White Blood Count 6.5 K/mm3 (4.4-11.0)
[2018-08-17 17:59] LABS: POSITIVE COUNT NO; POSITIVE DIFFERENTIAL NO; POSITIVE MORPHOLOGY NO
[2018-08-17 18:24] LABS: ALB/GLOB Ratio 0.6 RATIO (0.9-2.4); AST(SGOT) 21 U/L (15-37); Alanine Aminotransfer ALT/SGPT 20 U/L (13-56); Albumin, Serum 3.2 g/dL (3.2-5.0); Alkaline Phosphatase 123 U/L (45-117); Anion Gap 6 (5-15); BUN 22 mg/dL (7-18); BUN/Creat Ratio 5.9 RATIO (10-20); Calcium,Total 8.6 mg/dL (8.5-10.1); Chloride 95 mmol/L (98-107); Creatinine, Serum 3.72 mg/dL (0.55-1.02); EST Glomerular Filtration Rate 13 mL/min (>60); Est Glom Filt Rate - Afr Amer 15 mL/min (>60); Estimated Creatinine Clearance 12.98 ml/min; Globulin 5.1 g/dL (2.2-4.2); Glucose 70 mg/dL (74-106); Magnesium 2.1 mg/dL (1.6-2.6); Phosphorus 3.9 mg/dL (2.5-4.9); Potassium 3.3 mmol/L (3.5-5.1); Protein, Total 8.3 g/dL (6.4-8.2); Sodium Level 135 mmol/L (136-145)
[2018-08-17 20:54] VITALS: BP 111/66; PULSE 72; RESP 24; TEMP 36.3; O2SAT 99
[2018-08-17] MEDS: 0.9% Normal Saline 1,000 ML 20 ML IV (21:11)
[2018-08-17] MEDS: Dextrose 5%/0.9% NaCl 1,000 ML 20 ML IV (22:37)
[2018-08-17 23:31] LABS: Bedside Glucose 101 mg/dL (70-110)
[2018-08-17] MEDS: 0.9% NaCl Peripheral Flush Adult/Peds IV (23:31)
[2018-08-17] MEDS: Ondansetron 4 MG/2 ML Vial IV (23:31)
--- NOTE | 2018-08-18 | GASB_PTH ---
PATIENT: LUZ BACA LOC: MS2 U#:[id number] AGE/SX: 77/F ROOM: MS206 RE08/17/[address]: Dr. Kevin Claudio MD : [id number] BED: 1 DIS: 08/18/2018 SPEC #: [id number] RECD: 08/18/18 10:52 STATUS: RAMA REQ #: [id number] OC: 08/18/18 00:[address]: Kevin Claudio DEPT: SURGICAL PATHOLOGY RECD BY: Kiet Ray ENTERED: 08/18/18 10:52 SP TYPE: Gastric Bx OTHR DR: Dr. Mook Rain MD Tissues: Gastric mucous membrane Procedures: Surgery Specimen Level IV HEADER OPERATION: Colonoscopy, EGD ([facility] [place]) PRE-OP DIAGNOSIS: Blood in stool TISSUE SUBMITTED: Antrum biopsy for H. pylori and path MICROSCOPIC DIAGNOSIS Gastric antrum, biopsy: Mild chronic gastritis. AM:joyce 08/19/18 COMMENT The results of immunohistochemistry for Helicobacter pylori will be reported separately ([id number]). MICROSCOPIC DESCRIPTION Slides are reviewed. GROSS DESCRIPTION Received in fixative is one container labeled with the patient's name and designated antrum biopsy. The specimen consists of one irregular fragment of light benavides soft tissue that measures 0.5 x 0.2 x 0.2 cm. The specimen is totally submitted in one cassette. / AM:joyce 08/18/18 TC:3 CPT: 73158
[2018-08-18 03:00] VITALS: BP 95/40; PULSE 67; RESP 20; TEMP 36.5; O2SAT 98
--- NOTE | 2018-08-18 05:00 | EKG12_ITS ---
Test Reason : AM EKG Blood Pressure : / mmHG Vent. Rate : 068 BPM Atrial Rate : 258 BPM P-R Int : 000 ms QRS Dur : 208 ms QT Int : 536 ms P-R-T Axes : 000 270 111 degrees QTc Int : 569 ms Demand pacemaker; interpretation is based on intrinsic rhythm Wide QRS rhythm with Premature ventricular complexes or Fusion complexes Right bundle branch block Septal infarct , age undetermined Abnormal ECG When compared with ECG of 19-MAY-2018 12:07, Wide QRS rhythm has replaced Electronic ventricular pacemaker Confirmed by HELEN COLLIER, MIKE ([id number]), medical transcription editor JASON OSORIO ([id number]) on 08/26/2018 8:35:56 AM Referred By: Kevin Claudio Confirmed By:MIKE CERVANTES MD
[2018-08-18 06:15] LABS: Bedside Glucose 81 mg/dL (70-110)
--- NOTE | 2018-08-18 06:53 | NURSING ---
Handed off to Endoscopy staff at 0645hrs and pt left the floor at 0653hrs with [employer].
--- NOTE | 2018-08-18 06:54 | PCM.HP.BLA ---
History and Physical Date of Admission: 08/18/18 HISTORY AND PHYSICAL ? Ashlyn Virgen 1940 ? REFERRING PHYSICIAN: ??Tracey Pringle (Elías), A* ? CHIEF COMPLAINT: ??New Patient (positive occult stool) ? HPI: The patient is a 77 year old female referred for endoscopy. ?Ashlyn notes , denies abdominal pain area did the patient notes episodic diarrhea and constipation. ?More recently, the patient has had more episodes of diarrhea. ?While denying true pain. ?She does note some abdominal cramping and periumbilical area. ? The patient denies nausea or vomiting. ?She denies hematemesis. ?She denies melena or hematochezia. ?The patient had a recent stool for occult blood which was positive. ? Patient has a recent history of dysphagia. ?She underwent upper endoscopy with esophageal dilatation on's December 31, 2017. ?This was performed in [place]. ?The patient was found to have a 3 cm hiatal hernia irregular GE junction and a shop. ?He is wearing that was dilated. ? ? Pathology returned as chronic active gastritis with H. pylori-like organisms. ?Negative for dysplasia on the stomach, biopsy, gastric biopsy demonstrated reactive gastric mucosa, negative for metaplasia or dysplasia. ?Esophageal biopsy returned as active inflammation. ?H. pylori antibody was positive. ?The patient was treated with eradication for H. pylori. ?She's been maintained on proton pump inhibitors. ? The patient had colonoscopy performed she recalls 5 years previously and [place]. ?She is uncertain what the findings were or what the recommended follow-up were. ? Has extensive past medical history - most recently, the patient had a non-ST segment myocardial infarction on May 13. ?She underwent cardiac catheterization which demonstrated an occluded venous graft, a patent VU graft and a 60% stenosis of the mid LAD. ? The patient also has a history of supraventricular tachycardia, sleep apnea, morbid obesity, hypertrophic obstructive cardiomyopathy, diabetic neuropathy, diabetes, COPD, chronic renal failure on dialysis with failed dialysis access. ?Carotid artery disease pacer defibrillator in place. ? She is referred for endoscopy due to blood in stool. ? We elected to hold off on endoscopy at that time and wait at least 3 months till after her myocardial infarction. ?Since that time, she has undergone a surgical procedure for dialysis access in [place]. ?The patient required intubation and noted dysphagia for the first 2 weeks following that procedure. ?This dysphagia has since resolved. ??The patient is impaired with her activities of daily living and uses a scooter. ?She has a history of heart failure and has a history of undergoing a right sided congestive heart failure with fluid shafts. ?Her hydraulic design engineer is Dr. Saunders but she has had her most recent cardiac care at [facility] by Dr. Hunter ? The patient is being seen by me today at the request of Dr. Adarsh Rain MD for my opinion and advice regarding need for endoscopy given chronic and severe medical comorbidities. ? ? PAST MEDICAL HISTORY PAST MEDICAL HISTORY Diagnosis Date ? Arthritis ? ? Atrial fibrillation (HCC) ? ? CAD (coronary artery disease) ? ? stents x9, defibrillator, CABG. Seeing Dr. Saunders ? Cardiac defibrillator in place ? ? Cardiomegaly ? ? Carotid artery disease (HCC) ? ? left ? Chronic hypoxemic respiratory failure (HCC) 07/01/2018 ? Chronic kidney disease (CKD) stage G3b/A2, moderately decreased glomerular filtration rate (GFR) between 30-44 mL/min/1.73 square meter and albuminuria creatinine ratio between 30-299 mg/g (HCC) ? ? Dr. Martin ? COPD (chronic obstructive pulmonary disease) ([facility]) ? ? Dr. Cruz ? Depression ? ? Diabetes (HCC) ? ? Diabetic neuropathy (HCC) ? ? Edema ? ? ESRD (end stage renal disease) on dialysis (HCC) ? ? MWF, Dr. Martin ? GERD (gastroesophageal reflux disease) ? ? Gout ? ? with hyperuricemia ? HH (hiatus hernia) ? ? HOCM (hypertrophic obstructive cardiomyopathy) ([facility]) ? ? S/P Septal Myectomy in 2003. ?Now with LVEF 50% and mod/severe pulm HTN. ? HTN (hypertension) ? ? Hyperlipidemia ? ? Morbid obesity with BMI of 40.0-44.9, adult ([facility]) ? ? Presence of combination internal cardiac defibrillator (ICD) and pacemaker ? ? Sleep apnea 2011 ? not on CPAP, unable to tolerate mask 02/2017 ? SVT (supraventricular tachycardia) ([facility]) ? ? NSVT and questionable VT in 2003 post op ? ? PAST SURGICAL HISTORY PAST SURGICAL HISTORY Procedure Laterality Date ? CABG (1) VEIN GRAFT & ARTERIAL GRAFT ? ? ? CHOLECYSTECTOMY HX ? ? ? DIALYSIS ACCESS SYSTEM ? ? ? HEART SURGERY HX ? 07/18/2004 ? Septal myectomy and CABG x2 (DEBORAH-LAD, SVG-PDA). ? HYSTERECTOMY HX ? ? ? I&D PERIANAL ABSCESS ? ? ? PACEMAKER ? ? ? with defib ? PAST SURGICAL HISTORY OF ? ? ? left breast nodule removed ? PAST SURGICAL HISTORY OF ? ? ? skin lesions removed ? STENT PLACEMENT ? ? ? coronary ? ? CURRENT MEDICATIONS ? Current Outpatient Prescriptions: apixaban (ELIQUIS) 5 mg tab(s) Take 1 tablet by mouth twice daily. insulin aspart U-100 (NOVOLOG FLEXPEN U-100 INSULIN) 100 unit/mL inpn Using Sliding Scale: ?150-209 ?1 unit, 210-269 ?2 units, 270-329 ?3 units, 330-389 ?4 units, 390-449 ?5 units insulin glargine (LANTUS SOLOSTAR U-100 INSULIN) 100 unit/mL (3 mL) inpn Inject 50 Units subcutaneously every morning. insulin glargine (LANTUS SOLOSTAR U-100 INSULIN) 100 unit/mL (3 mL) inpn Inject 32 Units subcutaneously daily at bedtime. carvedilol (COREG) 3.125 mg tablet Take 1 tablet by mouth twice daily with meals. amiodarone (PACERONE) 200 mg tablet Take 1 tablet by mouth once daily. bacitracin zinc (ANTIBIOTIC, BACITRACIN ZINC,) 500 unit/gram ointment Apply 1 application to affected area twice daily. polyethylene glycol 3350 (MIRALAX) 17 gram/dose powder Use 1-2 times daily as needed for constipation. simvastatin (ZOCOR) 40 mg tablet Take 1 tablet by mouth every morning. isosorbide mononitrate ER (IMDUR) 30 mg 24 hr tablet Take 3 tablets by mouth once daily. pregabalin (LYRICA) 25 mg capsule Take 1 tablet PO daily with an additional 1 tablet PO after dialysis MWF metoclopramide HCl (REGLAN) 5 mg tablet Take 1 tablet by mouth three times daily. pantoprazole DR (PROTONIX) 40 mg tablet Take 1 tablet by mouth once daily. senna (SENNA) 8.6 mg tab Take 8.6 mg by mouth once daily. ondansetron (ZOFRAN) 4 mg tablet Take 4 mg by mouth every 8 hours as needed. ipratropium-albuterol (DUONEB) 0.5 mg-3 mg(2.5 mg base)/3 mL nebu Inhale 3 mL as instructed every 4 hours while awake. And prn for wheezing/shortness of breath. budesonide (PULMICORT) 0.5 mg/2 mL nebulizer solution Use 2 mL via nebulizer once daily. INHALE 2 ML BY NEBULIZER OVER 5-15 MINUTES EVERY 12 HOURS. nystatin (NYSTOP) powder Apply 1 application to affected area three times daily. guaiFENesin-dextromethorphan (ROBITUSSIN DM) 100-10 mg/5 mL syrup Take 5-10 mL by mouth every 6 hours as needed for Cough. nitroglycerin sublingual (NITROQUICK) 0.4 mg SL tablet Dissolve 1 tablet under the tongue every 5 minutes as needed. OXYGEN, HOME THERAPY, Inhale 2.5 L/min as instructed continuous. 3 L/min when leaves home. ? No current facility-administered medications for this visit. ? ALLERGIES: Aspirin; Bactrim [Sulfamethoxazole-Trimethoprim]; Latex; Penicillins; Tetracycline; Atorvastatin; Codeine; Dilaudid [Hydromorphone (Bulk)]; Meperidine; Pentazocine; Pioglitazone; Propoxyphene ? PERSONAL HISTORY: SOCIAL HISTORY Social History ??Marital status: ?Spouse name: ?Years of education: ?Number of children: ? Social History Main Topics ??Smoking status: Former Smoker ?Packs/day: 2.50 ?Years: 43.00 ?Types: Cigarettes ?Start date: 09/24/1961 ?Quit date: 07/07/2004 ??Smokeless tobacco: Never Used ?Alcohol use: No ?Drug use: No ? Other Topics ?Concern Caffeine Concern ?Yes ??Comment:coffee 1 cup daily Special Diet ?No ??Comment:Regular Exercise ?No ??Comment:no unable, due to SOB x several months. ? Social History Narrative ??Patient and daughter live together. ? ? FAMILY HISTORY: FAMILY HISTORY FAMILY HISTORY Problem Relation Age of Onset ? Hypertension Mother ?living at age 93, HTN ? Heart Failure Mother ?ME ? Cancer Father ? age 71, lung cancer ? Heart Attack Sister ? ? COPD Brother ? ? Heart Paternal Grandmother ? ? Heart Paternal Grandfather ? ? Heart Sister ? ? Diabetes Sister ? ? Heart Sister ? ? Breast Cancer Sister ? ? Diabetes Sister ? ? Hypertension Brother ? ? Diabetes Brother ? ? REVIEW OF SYMPTOMS: ??The review of systems data was entered by the nurse and reviewed by me ? Nursing Notes: Maedlyn John LPN ?08/11/2018 11:04 AM ?Signed REVIEW OF SYSTEMS: ?General:???The patient NOTES fatigue, denies weight loss, NOTES weight gain, NOTES feeling hot, and denies feelings of cold. ?Eyes: ?The patient denies glaucoma, NOTES eye injury/surgery, wears glasses or contacts. ?Ear/Nose/Throat: ?The patient denies allergies, denies hayfever, denies ear infections, and NOTES bloody noses. ?Cardiovascular: ?The patient NOTES chest pain, NOTES heart disease, denies high blood pressure,NOTES cardiac stent, denies prior heart attack, NOTES irregular heart beat, NOTES high cholesterol, ?NOTES poor circulation, NOTES heart failure, other cardiac issues, NOTES claudication, NOTES cold feet, denies peripheral arterial stent. ?Respiratory: ?The patient denies tuberculosis, NOTES pneumonia, NOTES frequent cough, denies pulmonary embolism, NOTES shortness of breath, and denies coughing up blood. ?Gastrointestinal: ?The patient NOTES difficulty swallowing, NOTES acid reflux, denies ulcers, denies vomiting, denies jaundice/hepatitis, NOTES gallbladder problems, denies black or tarry stools, NOTES hemorrhoids, NOTES bleeding from rectum, denies diverticulitis, denies constipation, denies diarrhea, denies loss of stool control, and NOTES hernias. ?Kidney/Bladder: ?The patient denies kidney stones, denies urine infections, and denies bloody urine.NOTES renal failure ?Skin: ?The patient denies a history of skin cancer, denies bleeding/changing moles, and denies a history of skin rash. ?Neurologic: ?The patient denies a history of epilepsy/convulsions, denies headaches, denies head/spinal injuries, and denies stroke/TIA. ?Psychiatric: ?The patient denies psychiatric medications, denies depression, and denies voices, denies substance abuse. ?Endocrine: ?The patient denies thyroid disorders, NOTES diabetes, and denies hormonal problems. ?Hematologic: ?The patient denies a history of bruising, denies bleeding, and denies anemia, denies blood clots. ?Infections: ?The patient denies a history of measles and mumps, denies rheumatic fever, and denies sexually transmitted diseases. ?Musculoskeletal: ?The patient denies back pain/injury, denies back problems, denies sciatica, NOTES knee/foot trouble, denies arthritis, or NOTES gout. ? ? When was patient's last Mammogram screening greater than 5 years ? ? ?Last Colonoscopy: ?2011 ? ? PHYSICAL EXAMINATION: ? General: ?The patient is 77 year old female, well nourished, well hydrated in no acute distress. ?The patient is oriented to time, place, and person. ? VITALS: Blood pressure (!) 86/48, weight 92.5 kg (204 lb).?Body mass index is 31.02 kg/m?.? ? HEENT: ?Normal cephalic, ataumatic, pupils are equally round, sclera are anicteric, mucous membranes are moist, oropharynx is clear. ?Neck has no masses, asymmetry or lymphadenopathy. ?Thyroid is unremarkable. ?Patient on continuous oxygen ? Respiratory: ?Clear to auscultation and percussion. ?Normal respiratory excursion and pattern. - Distant ? Cardiac: ?Examination is regular rate and rhythm. ?Distant ? Abdominal exam: ?Soft, nontender, ?with no palpable masses. ?No hepatosplenomegaly. ?No palpable hernias. ? Rectal exam: exam deferred ? Extremities: ?no clubbing, cyanosis or edema. ?No adenopathy. ? Other: ? LABORATORY VALUES: As Noted ? RADIOLOGIC STUDIES: ?As Noted ? Assessment ? IMPRESSION: Heme positive stools, recent upper endoscopy for gastritis and dysphagia with a Schatzki's ring present, colonoscopy, approximate 5 years previously, recent myocardial infarction, severe comorbidities ? PLAN: ? I plan to perform upper and lower endoscopy. ??We discussed the risks and benefits of the planned endoscopy. ?I have informed the patient that complications can occur including failure to complete the endoscopy and perforation. ?The patient had the opportunity to ask questions concerning the planned endoscopy. ?My staff has also explained the procedure to the patient in understandable terms and has given the patient printed material concerning the procedure. ?The patient freely consents to surgery. ? Bowel prep will be challenging due to the patient's cardiomyopathy and renal failure to avoid dehydration and/or hypotension. ?This will likely need to be performed in hospital for bowel prep. ? I plan for monitored anesthetic care. ? Diagnoses: (K62.5) Rectal bleeding ?(primary encounter diagnosis) (N17.9, ?N18.3) Acute renal failure superimposed on stage 3 chronic kidney disease, unspecified acute renal failure type (HCC) (Z95.0) Pacemaker (I25.10) Coronary artery disease, angina presence unspecified, unspecified vessel or lesion type, unspecified whether [place] or transplanted heart (K21.9) Gastroesophageal reflux disease, esophagitis presence not specified ? My findings have been communicated to Dr. ?Adarsh Rain MD via shared medical record. ?This note will be forwarded to Dr. Adarsh Rain MD. ?? Return to Clinic: The patient is instructed to follow-up with me as needed. ? Kevin Claudio MD
--- NOTE | 2018-08-18 07:00 | IMM_PTH ---
PATIENT: LUZ BACA LOC: MS2 U#:[id number] AGE/SX: 77/F ROOM: [id number] RE08/17/[address]: Dr. Kevin Claudio MD : 1940 BED: 1 DIS: 08/18/2018 SPEC #: [id number] RECD: 08/18/18 12:13 STATUS: SOUSera REQ #: [id number] OC: 08/18/18 07:[address]: Kevin Claudio DEPT: IMMUNOHISTOCHEMISTRY RECD BY: Ayala Rojas ENTERED: 08/18/18 12:14 SP TYPE: IMMUNO OTHR DR: Dr. Mook Rain MD Tissues: Stomach, NOS Procedures: H Pylori (initial) PHYSICIAN & INSTITUTION [place] [address] SPECIMEN INFORMATION: Tissue Source: Antrum biopsy Clinical Info: Blood in stool Specimen Number: [id number] CPT code: 17795 METHODOLOGY: Deparaffinized sections of prefer/formalin-fixed tissue or PAP/DQ stained slides are incubated with monoclonal/polyclonal antibodies/oligonucleotide probes. Localization is made via biotin free immunoperoxidase method. Appropriate controls are performed and reacted as expected. Results on target cell population are indicated in the following table: RESULTS: ANTIBODY / CLONE RESULT H Pylori (polyclonal) negative These tests were developed and their performance characteristics determined by [facility]. They may not have been cleared or approved by the U.S. Food and Drug Administration. The FDA has determined that such clearance or approval is not necessary. INTERPRETATION: Antrum, biopsy: Negative for Helicobacter pylori organisms. AM:joyce 08/22/18
--- NOTE | 2018-08-18 07:00 | HP.PCM_ITS ---
History and Physical Date of Admission: 08/18/18 HISTORY AND PHYSICAL ? Ashlyn Virgen 1940 ? REFERRING PHYSICIAN: ??Tracey Pringle (Elías), A* ? CHIEF COMPLAINT: ??New Patient (positive occult stool) ? HPI: The patient is a 77 year old female referred for endoscopy. ?Ashlyn notes , denies abdominal pain area did the patient notes episodic diarrhea and constipation. ?More recently, the patient has had more episodes of diarrhea. ?While denying true pain. ?She does note some abdominal cramping and periumbilical area. ? The patient denies nausea or vomiting. ?She denies hematemesis. ?She denies melena or hematochezia. ?The patient had a recent stool for occult blood which was positive. ? Patient has a recent history of dysphagia. ?She underwent upper endoscopy with esophageal dilatation on's December 31, 2017. ?This was performed in [place]. ?The patient was found to have a 3 cm hiatal hernia irregular GE junction and a shop. ?He is wearing that was dilated. ? ? Pathology returned as chronic active gastritis with H. pylori-like organisms. ?Negative for dysplasia on the stomach, biopsy, gastric biopsy demonstrated reactive gastric mucosa, negative for metaplasia or dysplasia. ?Esophageal biopsy returned as active inflammation. ?H. pylori antibody was positive. ?The patient was treated with eradication for H. pylori. ?She's been maintained on proton pump inhibitors. ? The patient had colonoscopy performed she recalls 5 years previously and [place]. ?She is uncertain what the findings were or what the recommended follow-up were. ? Has extensive past medical history - most recently, the patient had a non-ST segment myocardial infarction on May 13. ?She underwent cardiac catheterization which demonstrated an occluded venous graft, a patent VU graft and a 60% stenosis of the mid LAD. ? The patient also has a history of supraventricular tachycardia, sleep apnea, morbid obesity, hypertrophic obstructive cardiomyopathy, diabetic neuropathy, diabetes, COPD, chronic renal failure on dialysis with failed dialysis access. ?Carotid artery disease pacer defibrillator in place. ? She is referred for endoscopy due to blood in stool. ? We elected to hold off on endoscopy at that time and wait at least 3 months till after her myocardial infarction. ?Since that time, she has undergone a surgical procedure for dialysis access in [place]. ?The patient required intubation and noted dysphagia for the first 2 weeks following that procedure. ?This dysphagia has since resolved. ??The patient is impaired with her activities of daily living and uses a scooter. ?She has a history of heart failure and has a history of undergoing a right sided congestive heart failure with fluid shafts. ?Her casing crew is Dr. Saunders but she has had her most recent cardiac care at [facility] by Dr. Hunter ? The patient is being seen by me today at the request of Dr. Adarsh Rain MD for my opinion and advice regarding need for endoscopy given chronic and severe medical comorbidities. ? ? PAST MEDICAL HISTORY PAST MEDICAL HISTORY Diagnosis Date ? Arthritis ? ? Atrial fibrillation (HCC) ? ? CAD (coronary artery disease) ? ? stents x9, defibrillator, CABG. Seeing Dr. Saunders ? Cardiac defibrillator in place ? ? Cardiomegaly ? ? Carotid artery disease (HCC) ? ? left ? Chronic hypoxemic respiratory failure (HCC) 07/01/2018 ? Chronic kidney disease (CKD) stage G3b/A2, moderately decreased glomerular filtration rate (GFR) between 30-44 mL/min/1.73 square meter and albuminuria creatinine ratio between 30-299 mg/g (HCC) ? ? Dr. Martin ? COPD (chronic obstructive pulmonary disease) ([facility]) ? ? Dr. Cruz ? Depression ? ? Diabetes (HCC) ? ? Diabetic neuropathy (HCC) ? ? Edema ? ? ESRD (end stage renal disease) on dialysis (HCC) ? ? MWF, Dr. Martin ? GERD (gastroesophageal reflux disease) ? ? Gout ? ? with hyperuricemia ? HH (hiatus hernia) ? ? HOCM (hypertrophic obstructive cardiomyopathy) ([facility]) ? ? S/P Septal Myectomy in 2003. ?Now with LVEF 50% and mod/severe pulm HTN. ? HTN (hypertension) ? ? Hyperlipidemia ? ? Morbid obesity with BMI of 40.0-44.9, adult ([facility]) ? ? Presence of combination internal cardiac defibrillator (ICD) and pacemaker ? ? Sleep apnea 2011 ? not on CPAP, unable to tolerate mask 02/2017 ? SVT (supraventricular tachycardia) ([facility]) ? ? NSVT and questionable VT in 2003 post op ? ? PAST SURGICAL HISTORY PAST SURGICAL HISTORY Procedure Laterality Date ? CABG (1) VEIN GRAFT & ARTERIAL GRAFT ? ? ? CHOLECYSTECTOMY HX ? ? ? DIALYSIS ACCESS SYSTEM ? ? ? HEART SURGERY HX ? 07/18/2004 ? Septal myectomy and CABG x2 (DEBORAH-LAD, SVG-PDA). ? HYSTERECTOMY HX ? ? ? I&D PERIANAL ABSCESS ? ? ? PACEMAKER ? ? ? with defib ? PAST SURGICAL HISTORY OF ? ? ? left breast nodule removed ? PAST SURGICAL HISTORY OF ? ? ? skin lesions removed ? STENT PLACEMENT ? ? ? coronary ? ? CURRENT MEDICATIONS ? Current Outpatient Prescriptions: apixaban (ELIQUIS) 5 mg tab(s) Take 1 tablet by mouth twice daily. insulin aspart U-100 (NOVOLOG FLEXPEN U-100 INSULIN) 100 unit/mL inpn Using Sliding Scale: ?150-209 ?1 unit, 210-269 ?2 units, 270-329 ?3 units, 330- 389 ?4 units, 390-449 ?5 units insulin glargine (LANTUS SOLOSTAR U-100 INSULIN) 100 unit/mL (3 mL) inpn Inject 50 Units subcutaneously every morning. insulin glargine (LANTUS SOLOSTAR U-100 INSULIN) 100 unit/mL (3 mL) inpn Inject 32 Units subcutaneously daily at bedtime. carvedilol (COREG) 3.125 mg tablet Take 1 tablet by mouth twice daily with meals. amiodarone (PACERONE) 200 mg tablet Take 1 tablet by mouth once daily. bacitracin zinc (ANTIBIOTIC, BACITRACIN ZINC,) 500 unit/gram ointment Apply 1 application to affected area twice daily. polyethylene glycol 3350 (MIRALAX) 17 gram/dose powder Use 1-2 times daily as needed for constipation. simvastatin (ZOCOR) 40 mg tablet Take 1 tablet by mouth every morning. isosorbide mononitrate ER (IMDUR) 30 mg 24 hr tablet Take 3 tablets by mouth once daily. pregabalin (LYRICA) 25 mg capsule Take 1 tablet PO daily with an additional 1 tablet PO after dialysis MWF metoclopramide HCl (REGLAN) 5 mg tablet Take 1 tablet by mouth three times daily. pantoprazole DR (PROTONIX) 40 mg tablet Take 1 tablet by mouth once daily. senna (SENNA) 8.6 mg tab Take 8.6 mg by mouth once daily. ondansetron (ZOFRAN) 4 mg tablet Take 4 mg by mouth every 8 hours as needed. ipratropium-albuterol (DUONEB) 0.5 mg-3 mg(2.5 mg base)/3 mL nebu Inhale 3 mL as instructed every 4 hours while awake. And prn for wheezing/shortness of breath. budesonide (PULMICORT) 0.5 mg/2 mL nebulizer solution Use 2 mL via nebulizer once daily. INHALE 2 ML BY NEBULIZER OVER 5-15 MINUTES EVERY 12 HOURS. nystatin (NYSTOP) powder Apply 1 application to affected area three times daily. guaiFENesin-dextromethorphan (ROBITUSSIN DM) 100-10 mg/5 mL syrup Take 5-10 mL by mouth every 6 hours as needed for Cough. nitroglycerin sublingual (NITROQUICK) 0.4 mg SL tablet Dissolve 1 tablet under the tongue every 5 minutes as needed. OXYGEN, HOME THERAPY, Inhale 2.5 L/min as instructed continuous. 3 L/min when leaves home. ? No current facility-administered medications for this visit. ? ALLERGIES: Aspirin; Bactrim [Sulfamethoxazole-Trimethoprim]; Latex; Penicillins; Tetracycline; Atorvastatin; Codeine; Dilaudid [Hydromorphone (Bulk)]; Meperidine; Pentazocine; Pioglitazone; Propoxyphene ? PERSONAL HISTORY: SOCIAL HISTORY Social History ??Marital status: ?Spouse name: ?Years of education: ?Number of children: ? Social History Main Topics ??Smoking status: Former Smoker ?Packs/day: 2.50 ?Years: 43.00 ?Types: Cigarettes ?Start date: 09/24/1961 ?Quit date: 07/07/2004 ??Smokeless tobacco: Never Used ?Alcohol use: No ?Drug use: No ? Other Topics ?Concern Caffeine Concern ?Yes ??Comment:coffee 1 cup daily Special Diet ?No ??Comment:Regular Exercise ?No ??Comment:no unable, due to SOB x several months. ? Social History Narrative ??Patient and daughter live together. ? ? FAMILY HISTORY: FAMILY HISTORY FAMILY HISTORY Problem Relation Age of Onset ? Hypertension Mother ?living at age 93, HTN ? Heart Failure Mother ?[place] ? Cancer Father ? age 71, lung cancer ? Heart Attack Sister ? ? COPD Brother ? ? Heart Paternal Grandmother ? ? Heart Paternal Grandfather ? ? Heart Sister ? ? Diabetes Sister ? ? Heart Sister ? ? Breast Cancer Sister ? ? Diabetes Sister ? ? Hypertension Brother ? ? Diabetes Brother ? ? REVIEW OF SYMPTOMS: ??The review of systems data was entered by the nurse and reviewed by me ? Nursing Notes: Madelyn John LPN ?08/11/2018 11:04 AM ?Signed REVIEW OF SYSTEMS: ?General:???The patient NOTES fatigue, denies weight loss, NOTES weight gain, NOTES feeling hot, and denies feelings of cold. ?Eyes: ?The patient denies glaucoma, NOTES eye injury/surgery, wears glasses or contacts. ?Ear/Nose/Throat: ?The patient denies allergies, denies hayfever, denies ear infections, and NOTES bloody noses. ?Cardiovascular: ?The patient NOTES chest pain, NOTES heart disease, denies high blood pressure,NOTES cardiac stent, denies prior heart attack, NOTES irregular heart beat, NOTES high cholesterol, ?NOTES poor circulation, NOTES heart failure, other cardiac issues, NOTES claudication, NOTES cold feet, denies peripheral arterial stent. ?Respiratory: ?The patient denies tuberculosis, NOTES pneumonia, NOTES frequent cough, denies pulmonary embolism, NOTES shortness of breath, and denies coughing up blood. ?Gastrointestinal: ?The patient NOTES difficulty swallowing, NOTES acid reflux, denies ulcers, denies vomiting, denies jaundice/hepatitis, NOTES gallbladder problems, denies black or tarry stools, NOTES hemorrhoids, NOTES bleeding from rectum, denies diverticulitis, denies constipation, denies diarrhea, denies loss of stool control, and NOTES hernias. ?Kidney/Bladder: ?The patient denies kidney stones, denies urine infections, and denies bloody urine.NOTES renal failure ?Skin: ?The patient denies a history of skin cancer, denies bleeding/changing moles, and denies a history of skin rash. ?Neurologic: ?The patient denies a history of epilepsy/convulsions, denies headaches, denies head/spinal injuries, and denies stroke/TIA. ?Psychiatric: ?The patient denies psychiatric medications, denies depression, and denies voices, denies substance abuse. ?Endocrine: ?The patient denies thyroid disorders, NOTES diabetes, and denies hormonal problems. ?Hematologic: ?The patient denies a history of bruising, denies bleeding, and denies anemia, denies blood clots. ?Infections: ?The patient denies a history of measles and mumps, denies rheumatic fever, and denies sexually transmitted diseases. ?Musculoskeletal: ?The patient denies back pain/injury, denies back problems, denies sciatica, NOTES knee/foot trouble, denies arthritis, or NOTES gout. ? ? When was patient's last Mammogram screening greater than 5 years ? ? ?Last Colonoscopy: ?2011 ? ? PHYSICAL EXAMINATION: ? General: ?The patient is 77 year old female, well nourished, well hydrated in no acute distress. ?The patient is oriented to time, place, and person. ? VITALS: Blood pressure (!) 86/48, weight 92.5 kg (204 lb).?Body mass index is 31.02 kg/m?.? ? HEENT: ?Normal cephalic, ataumatic, pupils are equally round, sclera are anicteric, mucous membranes are moist, oropharynx is clear. ?Neck has no masses, asymmetry or lymphadenopathy. ?Thyroid is unremarkable. ?Patient on continuous oxygen ? Respiratory: ?Clear to auscultation and percussion. ?Normal respiratory excursion and pattern. - Distant ? Cardiac: ?Examination is regular rate and rhythm. ?Distant ? Abdominal exam: ?Soft, nontender, ?with no palpable masses. ?No hepatosplenomegaly. ?No palpable hernias. ? Rectal exam: exam deferred ? Extremities: ?no clubbing, cyanosis or edema. ?No adenopathy. ? Other: ? LABORATORY VALUES: As Noted ? RADIOLOGIC STUDIES: ?As Noted ? Assessment ? IMPRESSION: Heme positive stools, recent upper endoscopy for gastritis and dysphagia with a Schatzki's ring present, colonoscopy, approximate 5 years previously, recent myocardial infarction, severe comorbidities ? PLAN: ? I plan to perform upper and lower endoscopy. ??We discussed the risks and benefits of the planned endoscopy. ?I have informed the patient that complications can occur including failure to complete the endoscopy and perforation. ?The patient had the opportunity to ask questions concerning the planned endoscopy. ?My staff has also explained the procedure to the patient in understandable terms and has given the patient printed material concerning the procedure. ?The patient freely consents to surgery. ? Bowel prep will be challenging due to the patient's cardiomyopathy and renal failure to avoid dehydration and/or hypotension. ?This will likely need to be performed in hospital for bowel prep. ? I plan for monitored anesthetic care. ? Diagnoses: (K62.5) Rectal bleeding ?(primary encounter diagnosis) (N17.9, ?N18.3) Acute renal failure superimposed on stage 3 chronic kidney disease, unspecified acute renal failure type (HCC) (Z95.0) Pacemaker (I25.10) Coronary artery disease, angina presence unspecified, unspecified vessel or lesion type, unspecified whether [place] or transplanted heart (K21.9) Gastroesophageal reflux disease, esophagitis presence not specified ? My findings have been communicated to Dr. ?Adarsh Rain MD via shared medical record. ?This note will be forwarded to Dr. Adarsh Rain MD. ?? Return to Clinic: The patient is instructed to follow-up with me as needed. ? Kevin Claudio MD
[2018-08-18 07:40] VITALS: BP 90/38; BP 95/40; PULSE 69; RESP 16; TEMP 36.4; O2SAT 99
--- NOTE | 2018-08-18 07:43 | OP.ENDO_ITS ---
Patient Name: Ashlyn Alba Procedure Date: 08/18/2018 6:56 AM Date of : 1940 Age: 77 Procedure: Upper GI endoscopy Indications: Heme positive stool Providers: Kevin Claudio MD Referring MD: Kevin Claudio MD Medicines: Monitored Anesthesia Care Patient Profile: This is a 77 year old female. Refer to note in patient chart for documentation of history and physical. Patient has symptoms. Complications: No immediate complications. Procedure: Pre-Anesthesia Assessment: - Prior to the procedure, a History and Physical was performed, and patient medications and allergies were reviewed. The patient is competent. The risks and benefits of the procedure and the sedation options and risks were discussed with the patient. All questions were answered and informed consent was obtained. Patient identification and proposed procedure were verified by the physician, the nurse and the process engineering intern in the procedure room. Mental Status Examination: alert and oriented. Airway Examination: normal oropharyngeal airway and neck mobility. Respiratory Examination: clear to auscultation. CV Examination: normal. Prophylactic Antibiotics: The patient does not require prophylactic antibiotics. Prior Anticoagulants: The patient has taken no previous anticoagulant or antiplatelet agents. ASA Grade Assessment: IV - A patient with severe systemic disease that is a constant threat to life. After reviewing the risks and benefits, the patient was deemed in satisfactory condition to undergo the procedure. The anesthesia plan was to use monitored anesthesia care (MAC). Immediately prior to administration of medications, the patient was re-assessed for adequacy to receive sedatives. The heart rate, respiratory rate, oxygen saturations, blood pressure, adequacy of pulmonary ventilation, and response to care were monitored throughout the procedure. The physical status of the patient was re-assessed after the procedure. After obtaining informed consent, the endoscope was passed under direct vision. Throughout the procedure, the patient's blood pressure, pulse, and oxygen saturations were monitored continuously. The gastroscope was introduced through the mouth, and advanced to the jejunum. The upper GI endoscopy was accomplished without difficulty. The patient tolerated the procedure well. Scope In: 7:13:32 AM Scope Out: 7:17:18 AM Total Procedure Duration Time 0 hours 3 minutes 46 seconds Findings: The examined jejunum was normal. The examined duodenum was normal. Localized moderate inflammation with hemorrhage characterized by erosions and shallow ulcerations was found in the gastric antrum. Biopsies were taken with a cold forceps for Helicobacter pylori testing using PyloriTek test. Biopsies were taken with a cold forceps for histology. The exam of the stomach was otherwise normal. The examined esophagus was normal. Impression: - Normal examined jejunum. - Normal examined duodenum. - Gastritis with hemorrhage. Biopsied. - Normal esophagus. Recommendation: - Continue present medications. Procedure Code(s): --- Professional --- 95332, Esophagogastroduodenoscopy, flexible, transoral; with biopsy, single or multiple CPT copyright 2017 [employer]. All rights reserved. The codes documented in this report are preliminary and upon research fellow review may be revised to meet current compliance requirements. Kevin Claudio MD 08/18/2018 7:42:51 AM This report has been signed electronically. Number of Addenda: 0 Note Initiated On: 08/18/2018 6:56 AM
[2018-08-18 07:45] VITALS: BP 110/51; BP 95/40; PULSE 70; RESP 16; O2SAT 99
--- NOTE | 2018-08-18 07:45 | OP.ENDO_ITS ---
Patient Name: Ashlyn Alba Procedure Date: 08/18/2018 7:18 AM Date of : 1940 Age: 77 Procedure: Colonoscopy Indications: Heme positive stool Providers: Kevin Claudio MD Referring MD: Kevin Claudio MD Medicines: Monitored Anesthesia Care Patient Profile: This is a 77 year old female. Refer to note in patient chart for documentation of history and physical. Patient has symptoms. Last Colonoscopy: date unknown. Complications: No immediate complications. Procedure: Pre-Anesthesia Assessment: - Prior to the procedure, a History and Physical was performed, and patient medications and allergies were reviewed. The patient is competent. The risks and benefits of the procedure and the sedation options and risks were discussed with the patient. All questions were answered and informed consent was obtained. Patient identification and proposed procedure were verified by the physician, the nurse and the auditor appraiser in the procedure room. Mental Status Examination: alert and oriented. Airway Examination: normal oropharyngeal airway and neck mobility. Respiratory Examination: clear to auscultation. CV Examination: normal. Prophylactic Antibiotics: The patient does not require prophylactic antibiotics. Prior Anticoagulants: The patient has taken no previous anticoagulant or antiplatelet agents. ASA Grade Assessment: IV - A patient with severe systemic disease that is a constant threat to life. After reviewing the risks and benefits, the patient was deemed in satisfactory condition to undergo the procedure. The anesthesia plan was to use monitored anesthesia care (MAC). Immediately prior to administration of medications, the patient was re-assessed for adequacy to receive sedatives. The heart rate, respiratory rate, oxygen saturations, blood pressure, adequacy of pulmonary ventilation, and response to care were monitored throughout the procedure. The physical status of the patient was re-assessed after the procedure. After I obtained informed consent, the scope was passed under direct vision. Throughout the procedure, the patient's blood pressure, pulse, and oxygen saturations were monitored continuously. The colonoscope was introduced through the anus and advanced to the cecum, identified by the ileocecal valve. The colonoscopy was performed without difficulty. The patient tolerated the procedure well. The quality of the bowel preparation was good. Scope In: 7:21:09 AM Scope Withdrawal Time 0 hours 3 minutes 35 seconds Scope Out: 7:33:48 AM Total Procedure Duration Time 0 hours 12 minutes 39 seconds Findings: The perianal and digital rectal examinations were normal. Multiple medium-mouthed diverticula were found in the sigmoid colon. The exam was otherwise without abnormality. The retroflexed view of the distal rectum and anal verge was normal and showed no anal or rectal abnormalities. Impression: - Diverticulosis in the sigmoid colon. - The examination was otherwise normal. - The distal rectum and anal verge are normal on retroflexion view. - No specimens collected. Recommendation: - Discharge patient to home. - Resume previous diet. - Continue present medications. - Repeat colonoscopy in 10 years for screening purposes. Procedure Code(s): --- Professional --- 95212, Colonoscopy, flexible; diagnostic, including collection of specimen(s) by brushing or washing, when performed (separate procedure) CPT copyright 2017 [employer]. All rights reserved. The codes documented in this report are preliminary and upon salesperson sheet music review may be revised to meet current compliance requirements. Kevin Claudio MD 08/18/2018 7:44:56 AM This report has been signed electronically. Number of Addenda: 0 Note Initiated On: 08/18/2018 7:18 AM
[2018-08-18 07:50] VITALS: BP 105/46; BP 95/40; PULSE 70; RESP 16; O2SAT 96
--- NOTE | 2018-08-18 07:55 | DCINST_ITS ---
You will use the following diet at home:: Renal (restricted protein/sodium) Discharge Activity: Return to Normal Activity Call your doctor if your incision/area has: Increased Pain/ Swelling Allergies/Adverse Reactions: Allergies latex Allergy (Verified 06/14/18 10:42) Anaphylaxis meperidine [From Demerol] Allergy (Verified 06/14/18 10:42) Hives Penicillins Allergy (Verified 06/14/18 10:42) Hives Tetracyclines Allergy (Verified 06/14/18 10:42) Hives aspirin Adverse Reaction (Verified 06/14/18 10:42) Unknown atorvastatin Adverse Reaction (Verified 06/14/18 10:42) Unknown codeine Adverse Reaction (Verified 06/14/18 10:42) Unknown hydromorphone [From Dilaudid] Adverse Reaction (Verified 06/14/18 10:42) Unknown pentazocine Adverse Reaction (Verified 06/14/18 10:42) Unknown pioglitazone Adverse Reaction (Verified 06/14/18 10:42) Unknown propoxyphene Adverse Reaction (Verified 06/14/18 10:42) Unknown sulfamethoxazole [From Bactrim] Adverse Reaction (Verified 06/14/18 10:42) Unknown trimethoprim [From Bactrim] Adverse Reaction (Verified 06/14/18 10:42) Unknown Medications to take at Discharge Nitroglycerin 0.4 mg SL Q5M PRN 12/06/17 Simvastatin 40 mg PO DAILY 12/06/17 Carvedilol [Coreg (Beta Mayra)] 3.125 mg PO BID 04/21/18 Insulin Glargine,Hum.rec.anlog [Lantus] 32 unit SQ QHS 04/22/18 Insulin Glargine,Hum.rec.anlog [Lantus] 50 unit SQ BREAKFAST 04/22/18 Amiodarone HCl 200 mg PO DAILY 05/11/18 Ondansetron HCl [Zofran] 4 mg PO Q8H PRN PRN 05/11/18 Sennosides [Senna] 8.6 mg PO DAILY 05/11/18 Apixaban [Eliquis] 5 mg PO BID #0 05/13/18 Insulin Aspart [Novolog Flexpen] 0 - 100 units SC 4X/DAY 05/19/18 Ipratropium/Albuterol Sulfate [Duoneb] 3 ml INHALATION Q4H PRN PRN 05/19/18 isosorbide mononitrate ER 30 mg tablet,extended release 24 hr 90 mg PO DAILY 06/14/18 Bacitracin 1 applic TOPICAL BID 08/17/18 Budesonide 2 ml INHALATION Q12H 08/17/18 Metoclopramide [Metoclopramide HCl] 5 mg PO TID 08/17/18 Nystatin Powder 1 applic TOPICAL TID 08/17/18 Polyethylene Glycol 3350 [Miralax] 1 packet PO BID PRN 08/17/18 Pregabalin [Lyrica] 25 mg PO DAILY 08/17/18 Robitussin Dm 5 - 10 ml PO Q6H PRN 08/17/18 Pantoprazole Sodium 40 mg PO BID #0 08/18/18 Primary Care Physician: Mook Rain MD [Primary Care Provider] - Test Results: Test results from this visit will be discussed in further detail at your follow- up appointment, if applicable. Please Follow Up With: Kevin Claudio MD When: in one week
[2018-08-18 07:56] VITALS: BP 118/62; BP 95/40; PULSE 71; RESP 16; TEMP 36.3; O2SAT 95
[2018-08-18 08:18] VITALS: BP 115/33; PULSE 72; RESP 16; TEMP 36.4; O2SAT 96
--- NOTE | 2018-08-18 08:58 | PCA ---
pt off floor
== END 2018-08-18 09:01 | disposition home or self-care (01) ==
LOC: MS2 15:52
PROVIDERS: Admitting Provider Surgery; Family Provider Family Medicine; PCP Family Medicine; Referring Provider Surgery; Visit Provider Surgery
PROC: 0DJD8ZZ Inspection of Lower Intestinal Tract, Via Natural or Artificial Opening Endoscopic (ICD-10-PCS; CPT 45378; principal; 2018-08-18 06:55)
DX: K62.5 Hemorrhage of anus and rectum (principal); N17.9 Acute kidney failure, unspecified; I25.10 Atherosclerotic heart disease of native coronary artery without angina pectoris; K21.9 Gastro-esophageal reflux disease without esophagitis; K29.51 Unspecified chronic gastritis with bleeding; E78.5 Hyperlipidemia, unspecified; I12.0 Hypertensive chronic kidney disease with stage 5 chronic kidney disease or end stage renal disease; E11.22 Type 2 diabetes mellitus with diabetic chronic kidney disease; N18.6 End stage renal disease; Z99.2 Dependence on renal dialysis; E66.01 Morbid (severe) obesity due to excess calories; Z68.33 Body mass index [BMI] 33.0-33.9, adult; Z71.3 Dietary counseling and surveillance; I42.1 Obstructive hypertrophic cardiomyopathy; G47.30 Sleep apnea, unspecified; Z95.1 Presence of aortocoronary bypass graft; Z23 Encounter for immunization; Z79.899 Other long term (current) drug therapy; Z79.4 Long term (current) use of insulin; Z79.01 Long term (current) use of anticoagulants; Z79.51 Long term (current) use of inhaled steroids; Z99.81 Dependence on supplemental oxygen; K57.30 Diverticulosis of large intestine without perforation or abscess without bleeding; R13.10 Dysphagia, unspecified; K44.9 Diaphragmatic hernia without obstruction or gangrene; E11.40 Type 2 diabetes mellitus with diabetic neuropathy, unspecified; J44.9 Chronic obstructive pulmonary disease, unspecified; Z95.810 Presence of automatic (implantable) cardiac defibrillator; M19.90 Unspecified osteoarthritis, unspecified site; J96.11 Chronic respiratory failure with hypoxia
CPT/HCPCS: 43239; 45378; 36415; 80053; 82962; 83735; 84100; 85025; 88305; 88342; 93005; 96374; 99218; G0008; J7030; 90686; A4216; G0378; G0379; J2405

== ENCOUNTER 2018-11-03 12:57 | Outpatient (RCR) | payer MEDICARE, SELFPAY ==
[2018-11-03 13:29] VITALS: BP 110/48; PULSE 102; RESP 18; TEMP 36.1; BMI 30.9
--- NOTE | 2018-11-03 16:58 | PCM.WC.HP ---
(1) Dermatitis of lower extremity Status: Acute Current Visit: Yes Code(s): L30.9 - Dermatitis, unspecified (2) Atrial fibrillation Status: Chronic Current Visit: No Code(s): I48.91 - Unspecified atrial fibrillation (3) COPD (chronic obstructive pulmonary disease) Status: Chronic Current Visit: No Code(s): J44.9 - Chronic obstructive pulmonary disease, unspecified (4) Congestive heart failure Status: Chronic Current Visit: No Code(s): I50.9 - Heart failure, unspecified (5) End stage renal disease Status: Chronic Current Visit: No Code(s): N18.6 - End stage renal disease (6) Hyperlipidemia Status: Chronic Current Visit: No Code(s): E78.5 - Hyperlipidemia, unspecified (7) Hypertension Status: Chronic Current Visit: No Code(s): I10 - Essential (primary) hypertension (8) 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 manager 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 Status: Chronic Current Visit: No Code(s): Z79.01 - 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 manager (current) use of anticoagulants (9) Type 2 diabetes mellitus Status: Chronic Current Visit: No Code(s): E11.9 - Type 2 diabetes mellitus without complications (10) Venous insufficiency of both lower extremities Status: Chronic Current Visit: No Code(s): I87.2 - Venous insufficiency (chronic) (peripheral) History of Present Illness Date of Service: 11/03/18 Chief Complaint: rash and dry skin to bilateral lower extremities since 2017 History of Wound: This is a 78-year-old white female who presents to the wound healing center today for consultation for her complaints of rash and dry skin to the bilateral lower extremities. She has a past medical history as listed above. The patient was referred by her primary care provider who states that since August 2018 she has had a red itchy rash with dry skin to her bilateral lower extremities. She states that at one point she was wearing Unna boots but these did not help and since then she has been using Aquaphor daily to her bilateral lower extremities. She denies having any open wounds or breaks in the skin at this time. She states that she has not been seen by a photogrammetric engineer for evaluation. She denies any other acute concerns at this time. She denies any other aggravating or relieving factors. The patient otherwise denies any fever, chills, nausea, vomiting, shortness of breath, chest pain or pressure, palpitations, orthopnea, lower extremity edema, syncope or presyncopal episodes. Past Medical History Past Medical History: Chronic Problems (Last Updated 06/16/18 @ 10:57 by Arline Galindo) Hx of atrioventricular node ablation (Chronic 12/19/14) AV node RFA X2 noriega per report;Subsequent implant of single chamber ICD per Dr. Loya @ [facility], W 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 manager 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 (Chronic) Atherosclerotic heart disease of [place] coronary artery without angina pectoris (Chronic) Septal Myectomy and CABG X 2 with Left internal thoracic artery to the LAD, and reversed SVG of the PDA per Dr. Cheung @ [facility]. Also subsequent PCI's :PCI X 6 to RCA in 2013; PCI X 3 in 2014: reports not available but referenced in Dr. Saunders's office visit dated 05/24/2018 History of ventricular septal myectomy (Chronic 07/18/04) Septal Myectomy and CABG X 2 with Left internal thoracic artery to the LAD, and reversed SVG of the PDA per Dr. Cheung @ [facility] S/P CABG x 2 (Chronic 07/18/04) Septal Myectomy and CABG X 2 with Left internal thoracic artery to the LAD, and reversed SVG of the PDA per Dr. Cheung @ [facility] Hypertension (Chronic) Hyperlipidemia (Chronic) Type 2 diabetes mellitus (Chronic) COPD (chronic obstructive pulmonary disease) (Chronic) Chronic hypoxemic respiratory failure (Chronic) Atrial fibrillation (Chronic) 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 12/11/16) Initial single chamber ICD implant was 12/19/[address] Loya @ [facility] [place] S/P EP/RFA; subsequent upgrade to combination pacer/ICD implant 12/11/16 [employer] Ell[employer]se VR [id number] End stage renal disease (Chronic) Diabetic neuropathy (Chronic) Peripheral vascular disease (Chronic) Venous insufficiency of both lower extremities (Chronic) Congestive heart failure (Chronic) History of PTCA (Chronic) PCI X 6 to RCA in 2013; PCI X 3 in 2014: reports not available but referenced in Dr. Saunders's office visit dated 05/24/2018 Surgical History: angioplasty, cholecystectomy, coronary bypass surgery, hysterectomy, pacemaker implantation, - Allergies/Adverse Reactions: Allergies latex Allergy (Verified 06/14/18 10:42) Anaphylaxis meperidine [From Demerol] Allergy (Verified 06/14/18 10:42) Hives Penicillins Allergy (Verified 06/14/18 10:42) Hives Tetracyclines Allergy (Verified 06/14/18 10:42) Hives aspirin Adverse Reaction (Verified 06/14/18 10:42) Unknown atorvastatin Adverse Reaction (Verified 06/14/18 10:42) Unknown codeine Adverse Reaction (Verified 06/14/18 10:42) Unknown hydromorphone [From Dilaudid] Adverse Reaction (Verified 06/14/18 10:42) Unknown pentazocine Adverse Reaction (Verified 06/14/18 10:42) Unknown pioglitazone Adverse Reaction (Verified 06/14/18 10:42) Unknown propoxyphene Adverse Reaction (Verified 06/14/18 10:42) Unknown sulfamethoxazole [From Bactrim] Adverse Reaction (Verified 06/14/18 10:42) Unknown trimethoprim [From Bactrim] Adverse Reaction (Verified 06/14/18 10:42) Unknown Home Medications: Ambulatory Orders Medication Instructions Recorded Nitroglycerin 0.4 mg SL Q5M PRN 12/06/17 Simvastatin 40 mg PO DAILY 12/06/17 Insulin Glargine,Hum.rec.anlog 24 unit SQ BREAKFAST 04/22/18 [Lantus] Amiodarone HCl 200 mg PO DAILY 05/11/18 Ondansetron HCl [Zofran] 4 mg PO Q8H PRN PRN 05/11/18 Sennosides [Senna] 8.6 mg PO DAILY 05/11/18 Apixaban [Eliquis] 5 mg PO BID #0 05/13/18 Insulin Aspart [Novolog Flexpen] 0 - 100 units SC 4X/DAY 05/19/18 Ipratropium/Albuterol Sulfate 3 ml INHALATION Q4H PRN PRN 05/19/18 [Duoneb] isosorbide mononitrate ER 30 mg 90 mg PO DAILY 06/14/18 tablet,extended release 24 hr Metoclopramide [Metoclopramide HCl] 2.5 mg PO TID 08/17/18 Nystatin Powder 1 applic TOPICAL TID 08/17/18 Polyethylene Glycol 3350 [Miralax] 1 packet PO BID PRN 08/17/18 Pregabalin [Lyrica] 25 mg PO DAILY 08/17/18 Robitussin Dm 5 - 10 ml PO Q6H PRN 08/17/18 Pantoprazole Sodium 40 mg PO BID #0 08/18/18 Docusate Sodium [Colace] 100 mg PO BID PRN PRN 11/03/18 Oxygen, Home [Home Oxygen] 2 - 4 lpm NASAL 11/03/18 Ranitidine [Zantac] 150 mg PO DAILY 11/03/18 Silver Sulfadiazine 1% Crm 1 applic TOPICAL DAILY 11/03/18 [Silvadene ([facility])] - Family History Maternal Family History: Family History (Last Updated 06/16/18 @ 10:47 by Arline Galindo) Unknown No problems noted. Hypertension Paternal Family History: Family History (Last Updated 06/16/18 @ 10:47 by Arline Galindo) Unknown No problems noted. Heart Disease Smoking Status: Former smoker Review of Systems Constitutional: Denies: Chills, Fever, Weight Change Eyes: Denies: Pain, Vision Change HEENT: Denies: Difficulty Hearing, Difficulty Swallowing, Sinus Congestion Cardiovascular: Denies: Chest Pain, Palpitations Respiratory: Denies: Cough, Shortness of Breath Gastrointestinal: Denies: Diarrhea, Nausea, Vomiting Genitourinary: Denies: Dysuria, Hematuria Skin: Reports: Dryness, Pruritis, Rash. Denies: Wounds Psychiatric: Denies: Anxiety, Depression Endocrine: Denies: Heat/ Cold Intolerance, Polydipsia, Polyuria Hematologic/ Lymphatic: Denies: Easy Bruising, Easy Bleeding - Physical Exam Vital Signs Temp Pulse Resp BP 96.9 F L 102 H 18 110/48 L 11/03/18 13:29 11/03/18 13:29 11/03/18 13:29 11/03/18 13:29 General: Alert, Oriented x3, Cooperative, No apparent distress HEENT: PERRLA, EOMI Lungs: Clear to auscultation, Diminished Cardiovascular: Irregular Rate, Murmur Abdomen: Soft, Non Tender, Obese Extremities: Edema - Generalized bilateral lower extremity edema with chronic venous changes to bilateral lower extremities and chronic purplish reddish discoloration bilateral lower extremities Skin: - - Erythematous raised rash bilateral lower extremities without any break in the skin, multiple dry patchy areas of skin bilateral lower extremities as well Wound Measurements and Assessment WC - Nurse 1 - General Ulcer Measurement Start: 11/03/18 13:26 Freq: Status: Active Protocol: Activity Type Activity Date Activity User E-Sign Co-Sign Detail Recorded Client Recorded Date Recorded By Document 11/03/18 13:29 [facility] [id number] 11/03/18 13:48 [facility] 11/03/18 13:29 Wound Center Nurse 1 [Edema Assessment] -Lower Limb Edema Present Yes -Right Calf (cm) 36.4 -Right Ankle (cm) 22.4 -Left Calf (cm) 36.5 -Left Ankle (cm) 22.3 Neurological: Neuro grossly intact Psych/Mental Status: Normal Affect, Appropriate Debridement Note No debridement was completed today Assessment/Plan Active Problems (Last Reviewed 06/14/18 @ 10:42 by Arline Galindo) Dermatitis of lower extremity (Acute) Assessment: Dermatitis bilateral lower extremity Plan: Discussed with patient that since there are no open wounds at this time and her problems are more dermatologic in nature that a dermatology referral is warranted. No debridement is indicated at this time. Patient may continue with her daily Aquaphor applications and discussed red flag symptoms of infection and/or cellulitis that require urgent medical attention. Patient verbalized understanding. Patient to follow-up at wound center as needed if any new wounds occur in the future. Otherwise she will be discharged today to follow-up with dermatology and primary care. This note was generated with [employer] dictation software. It may contain incorrect words, spelling, and punctuation that were not noted in checking the note before signing. Code Visit Office Visits / Consults: [id number] OV L3 Est
--- NOTE | 2018-11-04 09:02 | HP.PCM_ITS ---
(1) Dermatitis of lower extremity Status: Acute Current Visit: Yes Code(s): L30.9 - Dermatitis, unspecified (2) Atrial fibrillation Status: Chronic Current Visit: No Code(s): I48.91 - Unspecified atrial fibrillation (3) COPD (chronic obstructive pulmonary disease) Status: Chronic Current Visit: No Code(s): J44.9 - Chronic obstructive pulmonary disease, unspecified (4) Congestive heart failure Status: Chronic Current Visit: No Code(s): I50.9 - Heart failure, unspecified (5) End stage renal disease Status: Chronic Current Visit: No Code(s): N18.6 - End stage renal disease (6) Hyperlipidemia Status: Chronic Current Visit: No Code(s): E78.5 - Hyperlipidemia, unspecified (7) Hypertension Status: Chronic Current Visit: No Code(s): I10 - Essential (primary) hypertension (8) meterman 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 Status: Chronic Current Visit: No Code(s): Z79.01 - meterman (current) use of anticoagulants (9) Type 2 diabetes mellitus Status: Chronic Current Visit: No Code(s): E11.9 - Type 2 diabetes mellitus without complications (10) Venous insufficiency of both lower extremities Status: Chronic Current Visit: No Code(s): I87.2 - Venous insufficiency (chronic) (peripheral) History of Present Illness Date of Service: 11/03/18 Chief Complaint: rash and dry skin to bilateral lower extremities since 2017 History of Wound: This is a 78-year-old white female who presents to the wound healing center today for consultation for her complaints of rash and dry skin to the bilateral lower extremities. She has a past medical history as listed above. The patient was referred by her primary care provider who states that since August 2018 she has had a red itchy rash with dry skin to her bilateral lower extremities. She states that at one point she was wearing Unna boots but these did not help and since then she has been using Aquaphor daily to her bilateral lower extremities. She denies having any open wounds or breaks in the skin at this time. She states that she has not been seen by a electrician research for evaluation. She denies any other acute concerns at this time. She denies any other aggravating or relieving factors. The patient otherwise denies any fever, chills, nausea, vomiting, shortness of breath, chest pain or pressure, palpitations, orthopnea, lower extremity edema, syncope or presyncopal episodes. Past Medical History Past Medical History: Chronic Problems (Last Updated 06/16/18 @ 10:57 by Arline Galindo) Hx of atrioventricular node ablation (Chronic 12/19/14) AV node RFA X2 noriega per report;Subsequent implant of single chamber ICD per Dr. Loya @ [facility], [place] 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 (Chronic) Atherosclerotic heart disease of [place] coronary artery without angina pectoris (Chronic) Septal Myectomy and CABG X 2 with Left internal thoracic artery to the LAD, and reversed SVG of the PDA per Dr. Cheung @ [facility]. Also subsequent PCI's :PCI X 6 to RCA in 2013; PCI X 3 in 2014: reports not available but referenced in Dr. Saunders's office visit dated 05/24/2018 History of ventricular septal myectomy (Chronic 07/18/04) Septal Myectomy and CABG X 2 with Left internal thoracic artery to the LAD, and reversed SVG of the PDA per Dr. Cheung @ [facility] S/P CABG x 2 (Chronic 07/18/04) Septal Myectomy and CABG X 2 with Left internal thoracic artery to the LAD, and reversed SVG of the PDA per Dr. Cheung @ [facility] Hypertension (Chronic) Hyperlipidemia (Chronic) Type 2 diabetes mellitus (Chronic) COPD (chronic obstructive pulmonary disease) (Chronic) Chronic hypoxemic respiratory failure (Chronic) Atrial fibrillation (Chronic) 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 12/11/16) Initial single chamber ICD implant was 12/19/[address] Loya @ [facility] [place] S/P EP/RFA; subsequent upgrade to combination pacer/ICD implant 12/11/16 [employer] Ell[employer]se VR [id number] End stage renal disease (Chronic) Diabetic neuropathy (Chronic) Peripheral vascular disease (Chronic) Venous insufficiency of both lower extremities (Chronic) Congestive heart failure (Chronic) History of PTCA (Chronic) PCI X 6 to RCA in 2013; PCI X 3 in 2014: reports not available but referenced in Dr. Saunders's office visit dated 05/24/2018 Surgical History: angioplasty, cholecystectomy, coronary bypass surgery, hysterectomy, pacemaker implantation, - Allergies/Adverse Reactions: Allergies latex Allergy (Verified 06/14/18 10:42) Anaphylaxis meperidine [From Demerol] Allergy (Verified 06/14/18 10:42) Hives Penicillins Allergy (Verified 06/14/18 10:42) Hives Tetracyclines Allergy (Verified 06/14/18 10:42) Hives aspirin Adverse Reaction (Verified 06/14/18 10:42) Unknown atorvastatin Adverse Reaction (Verified 06/14/18 10:42) Unknown codeine Adverse Reaction (Verified 06/14/18 10:42) Unknown hydromorphone [From Dilaudid] Adverse Reaction (Verified 06/14/18 10:42) Unknown pentazocine Adverse Reaction (Verified 06/14/18 10:42) Unknown pioglitazone Adverse Reaction (Verified 06/14/18 10:42) Unknown propoxyphene Adverse Reaction (Verified 06/14/18 10:42) Unknown sulfamethoxazole [From Bactrim] Adverse Reaction (Verified 06/14/18 10:42) Unknown trimethoprim [From Bactrim] Adverse Reaction (Verified 06/14/18 10:42) Unknown Home Medications: Ambulatory Orders Medication Instructions Recorded Nitroglycerin 0.4 mg SL Q5M PRN 12/06/17 Simvastatin 40 mg PO DAILY 12/06/17 Insulin Glargine,Hum.rec.anlog 24 unit SQ BREAKFAST 04/22/18 [Lantus] Amiodarone HCl 200 mg PO DAILY 05/11/18 Ondansetron HCl [Zofran] 4 mg PO Q8H PRN PRN 05/11/18 Sennosides [Senna] 8.6 mg PO DAILY 05/11/18 Apixaban [Eliquis] 5 mg PO BID #0 05/13/18 Insulin Aspart [Novolog Flexpen] 0 - 100 units SC 4X/DAY 05/19/18 Ipratropium/Albuterol Sulfate 3 ml INHALATION Q4H PRN PRN 05/19/18 [Duoneb] isosorbide mononitrate ER 30 mg 90 mg PO DAILY 06/14/18 tablet,extended release 24 hr Metoclopramide [Metoclopramide HCl] 2.5 mg PO TID 08/17/18 Nystatin Powder 1 applic TOPICAL TID 08/17/18 Polyethylene Glycol 3350 [Miralax] 1 packet PO BID PRN 08/17/18 Pregabalin [Lyrica] 25 mg PO DAILY 08/17/18 Robitussin Dm 5 - 10 ml PO Q6H PRN 08/17/18 Pantoprazole Sodium 40 mg PO BID #0 08/18/18 Docusate Sodium [Colace] 100 mg PO BID PRN PRN 11/03/18 Oxygen, Home [Home Oxygen] 2 - 4 lpm NASAL 11/03/18 Ranitidine [Zantac] 150 mg PO DAILY 11/03/18 Silver Sulfadiazine 1% Crm 1 applic TOPICAL DAILY 11/03/18 [Silvadene ([facility])] - Family History Maternal Family History: Family History (Last Updated 06/16/18 @ 10:47 by Arline Galindo) Unknown No problems noted. Hypertension Paternal Family History: Family History (Last Updated 06/16/18 @ 10:47 by Arline Galindo) Unknown No problems noted. Heart Disease Smoking Status: Former smoker Review of Systems Constitutional: Denies: Chills, Fever, Weight Change Eyes: Denies: Pain, Vision Change HEENT: Denies: Difficulty Hearing, Difficulty Swallowing, Sinus Congestion Cardiovascular: Denies: Chest Pain, Palpitations Respiratory: Denies: Cough, Shortness of Breath Gastrointestinal: Denies: Diarrhea, Nausea, Vomiting Genitourinary: Denies: Dysuria, Hematuria Skin: Reports: Dryness, Pruritis, Rash. Denies: Wounds Psychiatric: Denies: Anxiety, Depression Endocrine: Denies: Heat/ Cold Intolerance, Polydipsia, Polyuria Hematologic/ Lymphatic: Denies: Easy Bruising, Easy Bleeding - Physical Exam Vital Signs Temp Pulse Resp BP 96.9 F L 102 H 18 110/48 L 11/03/18 13:29 11/03/18 13:29 11/03/18 13:29 11/03/18 13:29 General: Alert, Oriented x3, Cooperative, No apparent distress HEENT: PERRLA, EOMI Lungs: Clear to auscultation, Diminished Cardiovascular: Irregular Rate, Murmur Abdomen: Soft, Non Tender, Obese Extremities: Edema - Generalized bilateral lower extremity edema with chronic venous changes to bilateral lower extremities and chronic purplish reddish discoloration bilateral lower extremities Skin: - - Erythematous raised rash bilateral lower extremities without any break in the skin, multiple dry patchy areas of skin bilateral lower extremities as well Wound Measurements and Assessment WC - Nurse 1 - General Ulcer Measurement Start: 11/03/18 13:26 Freq: Status: Active Protocol: Activity Type Activity Date Activity User E-Sign Co-Sign Detail Recorded Client Recorded Date Recorded By Document 11/03/18 13:29 [facility] [id number] 11/03/18 13:48 [facility] 11/03/18 13:29 Wound Center Nurse 1 [Edema Assessment] -Lower Limb Edema Present Yes -Right Calf (cm) 36.4 -Right Ankle (cm) 22.4 -Left Calf (cm) 36.5 -Left Ankle (cm) 22.3 Neurological: Neuro grossly intact Psych/Mental Status: Normal Affect, Appropriate Debridement Note No debridement was completed today Assessment/Plan Active Problems (Last Reviewed 06/14/18 @ 10:42 by Arline Galindo) Dermatitis of lower extremity (Acute) Assessment: Dermatitis bilateral lower extremity Plan: Discussed with patient that since there are no open wounds at this time and her problems are more dermatologic in nature that a dermatology referral is warranted. No debridement is indicated at this time. Patient may continue with her daily Aquaphor applications and discussed red flag symptoms of infection and/or cellulitis that require urgent medical attention. Patient verbalized understanding. Patient to follow-up at wound center as needed if any new wounds occur in the future. Otherwise she will be discharged today to follow-up with dermatology and primary care. This note was generated with [employer] dictation software. It may contain incorrect words, spelling, and punctuation that were not noted in checking the note before signing. Code Visit Office Visits / Consults: [id number] OV L3 Est
--- OUTSIDE RECORDS SUMMARY | 2019-01-08 05:39 | XMS RPT_ITS ---
:1940 Author Organization OHIP Support Name Relationship Address Phone ISACC SOLIMANIA Unavailable [address] + [place] [address] R Unavailable Unavailable Unavailable Jourdan, Helga Unavailable [address] + [place] [address] R Unavailable Unavailable Unavailable Jourdan Andujar Unavailable Unavailable + JOURDAN, HELGA Unavailable [address] + [place] [address] R Unavailable Unavailable Unavailable JOURDAN, HELGA Unavailable [address] + [place] [address] R Unavailable Unavailable Unavailable JOURDAN, HELGA Unavailable [address] + [place] [address] R Unavailable Unavailable Unavailable JOURDAN, HELGA Unavailable [address] + [place] [address] R Unavailable Unavailable Unavailable JOURDAN, HELGA Unavailable [address] + [place] [address] R Unavailable Unavailable Unavailable JOURDAN, HELGA Unavailable [address] + [place] [address] R Unavailable Unavailable Unavailable JOURDAN, HELGA Unavailable [address] + [place] [address] R Unavailable Unavailable Unavailable JOURDAN, HELGA Unavailable [address] + [place] [address] R Unavailable Unavailable Unavailable JOURDAN, HELGA Unavailable [address] + [place] [address] R Unavailable Unavailable Unavailable JOURDAN, HELGA Unavailable [address] + [place] [address] R Unavailable Unavailable Unavailable JOURDAN, HELGA Unavailable [address] + [place] [address] R Unavailable Unavailable Unavailable JOURDAN HELGA Unavailable [address] + [place] [address] R Unavailable Unavailable Unavailable JOURDAN HELGA Unavailable [address] + [place] [address] R Unavailable Unavailable Unavailable JOURDAN, HELGA Unavailable [address] + [place] [address] R Unavailable Unavailable Unavailable JOURDAN, HELGA Unavailable [address] + [place] [address] R Unavailable Unavailable Unavailable JOURDAN, HELGA Unavailable [address] + [place] [address] R Unavailable Unavailable Unavailable JOURDAN, HELGA Unavailable [address] + [place] [address] R Unavailable Unavailable Unavailable JOURDAN, HELGA Unavailable [address] + [place] [address] R Unavailable Unavailable Unavailable Octavia Jourdan Unavailable Unavailable + MIRTA SOLIMANRICA Unavailable [address] + [place] [address] R Unavailable Unavailable Unavailable JOURDAN, HELGA Unavailable [address] + [place] [address] R Unavailable Unavailable Unavailable Care Team Providers Name Role Phone [facility] Primary Care Unavailable Mandy Grajeda Attending Unavailable Jonna Martin Attending Unavailable Jonna Martin Referring Unavailable Bursley, Mook Primary Care Unavailable Sementi, Kimberly Admitting Unavailable Bursley, Mook Primary Care Unavailable Moo Mackey Attending Unavailable Sheridan, Vamsi Consulting Unavailable Isabela Young MISSILEMAN-C Attending Unavailable Bursley, Mook Primary Care Unavailable Isabela Young MISSILEMAN-C Attending Unavailable Bursley, Mook Primary Care Unavailable Isabela Young MISSILEMAN-C Consulting Unavailable Bursley, Mook Primary Care Unavailable Marvel Cook Attending Unavailable Ayde Reyes Attending Unavailable Bursley, Mook Primary Care Unavailable Clay Brown Attending Unavailable Semenreginald, Kimberly Admitting Unavailable SemenKimberly montelongo Attending Unavailable Bursley, Mook Primary Care Unavailable Sementi, Kimberly Consulting Unavailable Bursley, Mook Primary Care Unavailable Wise, Luis Referring Unavailable Jopperi, Clemente Admitting Unavailable Jesse Hunter Consulting Unavailable Isabela Ladd Attending Unavailable Tanphaichitr, Natthavat Consulting Unavailable ElenipperiDagoic Attending Unavailable Jopperi, Clemente Admitting Unavailable Wise, Luis Referring Unavailable [facility] Unavailable Jesse Hunter Consulting Unavailable Tanphaichitr, Natthavat Consulting Unavailable Jopperi Clemente Consulting Unavailable Jopperi, Clemente Admitting Unavailable Jesse Hunter Attending Unavailable Wise, Luis Referring Unavailable [facility] Primary [facility] Unavailable Jesse Hunter Consulting Unavailable Tanphaichitr, Natthavat Consulting Unavailable Isabela Ladd Consulting Unavailable Elenipperi, Clemente Admitting Unavailable Isabela Ladd Attending Unavailable Wise, Luis Referring Unavailable [facility] Unavailable Jesse Hunter Consulting Unavailable Tanphaichitr, Natthavat Consulting Unavailable Isabela Ladd Consulting Unavailable Yamiletheri, Clemente Admitting Unavailable Isabela Ladd Attending Unavailable Wise, Luis Referring Unavailable [facility] Primary Care Unavailable Jesse Hunter Consulting Unavailable Tanphaichitr, Natthavat Consulting Unavailable Isabela Ladd Consulting [facility]available [facility] Unavailable Mandy Grajeda Attending Unavailable Parker Cosby Attending Unavailable Parker Cosby Attending Unavailable Kimberly Mejia Referring Unavailable Jesse Hunter Attending Unavailable Koffi Mook Referring Unavailable Ayde Butt Attending Unavailable Garrison, Clemente Referring Unavailable Ayde Butt Attending Unavailable Wise, Luis Referring Unavailable Dina Claudio Attending Unavailable González Dina Referring Unavailable Bursley, Mook Primary Care Unavailable González Dina Admitting Unavailable Parker Cosby Attending Unavailable Dina Claudio Referring Unavailable AREN CARDONA Attending Unavailable AREN CARDONA Referring Unavailable GLORIA SINGER Admitting Unavailable CLAY GARCIA Consulting Unavailable PEYMAN GUERRERO Attending Unavailable AREN CARDONA Attending Unavailable AREN CARDONA Referring Unavailable CESAR, PEYMAN Admitting Unavailable PEYMAN GUERRERO Attending Unavailable MARA HERNANDEZ Consulting Unavailable AREN CARDONA Attending Unavailable AREN CARDONA Referring Unavailable BALDI, RUSSELL Admitting Unavailable JOSH, MICHA GIBSON Attending Unavailable DINA BOWMAN Consulting Unavailable HERNANDEZ, MARA Warner Referring Unavailable HERNANDEZ, MARA Warner Referring Unavailable HERNANDEZ, MARA Warner Referring Unavailable HERNANDEZ, MARA Warner Referring Unavailable MADHUKWGLORIA ALCARAZ Admitting Unavailable SCHMARIVEL, MICHA GIBSON Attending Unavailable HOGAN, MICHAEL Goodson Consulting Unavailable JOSE C BETANCOURT Attending Unavailable COURSONENE Referring Unavailable HOGAN, MICHAEL D Referring Unavailable HOGAN, MICHAEL D Referring Unavailable HOGAN, MICHAEL D Admitting Unavailable HOGAN, MICHAEL D Attending Unavailable HOGAN, MICHAEL D Admitting Unavailable HOGAN, MICHAEL D Attending Unavailable COURSONENE Referring Unavailable HOGAN, MICHAEL Kellee Admitting Unavailable SALIMA MARINO JR Attending Unavailable MALENA BRAY Consulting Unavailable TESTRAJOSE C ARELLANO Attending Unavailable TESTRAKE, JOSE C Referring Unavailable ADRIEL PRINGLE (ELÍAS) Attending Unavailable LUCILLEMANDY (GORGE) Attending Unavailable LUCILLEMANDY (GORGE) Referring Unavailable CHIPAREN CRAIN Referring Unavailable HOGAN, MICHAEL D Attending Unavailable IVANLEYJAMESON) Referring Unavailable BURSLEYJAMESON) Attending Unavailable BURSLEYJAMESON) Referring Unavailable BURSLEYJAMESON) Referring Unavailable BURSLEYJAMESON) Referring Unavailable LUCILLEMANDY (GORGE) Attending Unavailable LUCILLEMANDY (GORGE) Referring Unavailable BURSJAMESON GALINDO) Referring Unavailable TESTRAKEJOSE C Attending Unavailable TESTRAKEJOSE C Referring Unavailable BURSLEYJAMESON) Attending Unavailable BURSJAMESON GALINDO) Referring Unavailable BURSLEYJAMESON) Referring Unavailable CHIP, AREN E Referring Unavailable MOVENS, SEFERINO (PA) Referring Unavailable MOVENS, SEFERINO (PA) Referring Unavailable MOVENS, SEFERINO (PA) Referring Unavailable LUCILLEMANDY (PA) Attending Unavailable MOVENS, SEFERINO (PA) Referring Unavailable HOGAN, MICHAEL D Referring Unavailable HOGAN, MICHAEL D Referring Unavailable HOGAN, MICHAEL D Referring Unavailable RUTADRIEL MONTELONGO (BACKHAUL DRIVER) Attending Unavailable RUTTI, ADRIEL (BACKHAUL DRIVER) Referring Unavailable RUTTI, ADRIEL (BACKHAUL DRIVER) Referring Unavailable RUTTI, ADRIEL (BACKHAUL DRIVER) Referring Unavailable BURSLEYJAMESON) Attending Unavailable TERISABELA DUMONT Referring Unavailable BURSLEY, JAMESON Warner () Referring Unavailable CHIP, AREN E Attending Unavailable CHIP, AREN E Referring Unavailable BURSLEY, JAMESON Warner () Referring Unavailable DINA CLAUDIO Attending Unavailable RUTTI, ADRIEL (BACKHAUL DRIVER) Referring Unavailable HOGANMICHAEL BARAHONA Attending Unavailable BURSJAMESON GALINDO () Referring Unavailable BURSLEYJAMESON () Attending Unavailable BURSLEYJAMESON () Referring Unavailable RUTTI, ADRIEL (BACKHAUL DRIVER) Attending Unavailable MICHAEL HOGAN Referring Unavailable DONNELL CRUZ Attending Unavailable MANDY ADKINS (GORGE) Referring Unavailable HOGANMICHAEL BARAHONA Referring Unavailable BURSJAMESON GALINDO) Attending Unavailable BURSLEYJAMESON () Referring Unavailable TESTRAKE, JOSE C Attending Unavailable TESTRAKE, JOSE C Referring Unavailable TESTRAKE, JOSE C Attending Unavailable TESTRAKE, JOSE C Referring Unavailable CHIP, AREN Mulligan Referring Unavailable BURSLEYJAMESON) Attending Unavailable BURSLEYJAMESON) Referring Unavailable BURSLEYJAMESON) Referring Unavailable BURSLEYJAMESON) Attending Unavailable BURSJAMESON GALINDO) Referring Unavailable TESTRAKE, JOSE C Attending Unavailable TESTRAKE, JOSE C Referring Unavailable TESTRAKE, JOSE C Referring Unavailable MICHAEL HOGAN Attending Unavailable MICHAEL HOGAN Referring Unavailable RUTTI, ADRIEL (BACKHAUL DRIVER) Attending Unavailable JAMESON KAMARA) Referring Unavailable BURSLEYJAMESON () Referring Unavailable RUTTI, ADRIEL (BACKHAUL DRIVER) Referring Unavailable TESTRAKE, JOSE C Attending Unavailable TESTRAKE, JOSE C Referring Unavailable GONZÁLEZDINA FRAZIER Attending Unavailable RUTTI, ADRIEL (BACKHAUL DRIVER) Referring Unavailable SEFERINO ALBERTS (GORGE) Attending Unavailable JAMESON KAMARA) Referring Unavailable TESTRAKE, JOSE C Attending Unavailable TESTRAKE, JOSE C Referring Unavailable CEBUL III, RYLAN Loomis Attending Unavailable JESI FOSTER (MISSILEMAN) Attending Unavailable BURSLEY, CHRISTOPHER B (MD) Referring Unavailable MICHAEL HOGAN Referring Unavailable AREN CARDONA E Attending Unavailable AREN CARDONA Referring Unavailable JOSE C RODRIGUEZ Attending Unavailable JOSE C RODRIGUEZ Referring Unavailable JAMESON KAMARA) Attending Unavailable JAMESON KAMARA) Referring Unavailable JAMESON KAMARA) Referring Unavailable JAMESON KAMARA) Referring Unavailable DINA CLAUDIO Attending Unavailable JAMESON KAMARA) Referring Unavailable HOGANMICHAEL BARAHONA Attending Unavailable MICHAEL HOGAN Referring Unavailable JAMESON KAMARA) Attending Unavailable JAMESON KAMARA) Referring Unavailable CHIP, AREN Attending Unavailable CHIP, AREN Referring Unavailable BURSLEY, CHRISTOPHER Primary Care Unavailable AREN CARDONA Attending Unavailable CHIP, AREN Referring Unavailable BURSLEY, CHRISTOPHER Primary Care Unavailable AREN CARDONA Attending Unavailable CHIP, AREN Referring Unavailable BURSLEY, CHRISTOPHER Primary Care Unavailable CHIP AREN Attending Unavailable CHIP, AREN Referring Unavailable BURSLEY, CHRISTOPHER Primary Care Unavailable COURSON, MARIANA Referring Unavailable BURSLEY, CHRISTOPHER Primary Care Unavailable COURSON, MARIANA Referring Unavailable BURSLEY, CHRISTOPHER Primary Care Unavailable Geovanny Reardon Attending Unavailable PROVIDER, UNKNOWN Referring Unavailable Bursley, Christopher Primary Care Unavailable PROVIDER, UNKNOWN Referring Unavailable Bursley, Christopher Primary Care Unavailable NORAH WEN Attending Unavailable PROBLEMS PROBLEMS DATE TYPE CONDITION / CODE ATTENDING STATUS SOURCE Active Unspecified intestinal NA Active [place] [address] obstruction, Clinic Main unspecified as to [place] partial versus complete Repository obstruction / K56.609(ICD-10) Active Epigastric pain / NA Active [facility] R10.13(ICD-10) Clinic Main [place] Repository Active End stage renal disease WON STEPHENSON, Active [place] [address] / N18.6(ICD-10) [facility] Other [place] Repository Active Arteriovenous fistula, WON STEPHENSON Active [place] [address] acquired / [facility] Other I77.0(ICD-10) [place] Repository Active Dependence on renal NA Active [facility] dialysis / Clinic Main Z99.2(ICD-10) [place] Repository Admitting Unknown / UNK(Unknown) NA Active [facility] 8 diagnosis Health System Repository Unknown I25.10 - [place], [place] Active [place] 8 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 / I25.10(ICD-10) Unknown 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[place], [place]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 [place] 8 hypertrophic Community cardiomyopathy / Hospital I42.1(ICD-10) Repository Unknown Z95.1 - Presence of [place], [place] Active [facility] aortocoronary bypass Community graft / Z95.1(ICD-10) Hospital Repository Unknown Z95.810 - Presence of [place], [place] Active [place] 8 automatic (implantable) [facility] cardiac defibrillator / Hospital Z95.810(ICD-10) Repository Active Other fatigue / NA Active [facility] R53.83(ICD-10) Clinic Main [place] Repository Active Blister (nonthermal), NA Active [place] left lesser toe(s), Clinic Main initial encounter / [place] S90.425A(ICD-10) Repository Active Asymptomatic menopausal NA Active [facility] state / Z78.0(ICD-10) Clinic Main [place] Repository Active Other acute HOGAN, Active [facility] postprocedural pain / MICHAEL D Clinic Other G89.18(ICD-10) [place] Repository Active Other specified NA Active [facility] symptoms and signs Clinic Other involving the [place] circulatory and Repository respiratory systems / R09.89(ICD-10) Active Chronic respiratory NA Active [facility] failure with hypoxia / Clinic Other J96.11(ICD-10) [place] Repository Active Atherosclerotic heart NA Active [facility] disease of [facility] Other coronary artery without [place] angina pectoris / Repository I25.10(ICD-10) Active Gastro-esophageal NA Active [facility] reflux disease without Clinic Other esophagitis / [place] K21.9(ICD-10) Repository Active Chronic obstructive NA Active [facility] pulmonary disease, Clinic Other unspecified / [place] J44.9(ICD-10) Repository Active Hyperlipidemia, NA Active [facility] unspecified / Clinic Other E78.5(ICD-10) [place] Repository Active Pulmonary hypertension, NA Active [facility] unspecified / Clinic Other I27.20(ICD-10) [place] Repository Active Encounter for other NA Active [facility] preprocedural Clinic Other examination / [place] Z01.818(ICD-10) Repository Active Pain in right hip / NA Active [facility] M25.551(ICD-10) Clinic Main [place] Repository Active Encounter for screening NA Active [facility] for other disorder / Clinic Main Z13.89(ICD-10) [place] Repository Unknown I13.2 - Hypertensive [place], Active [facility] heart and chronic [facility] kidney disease with Hospital heart failure and with Repository stage 5 chronic kidney disease, or end stage renal disease / I13.2(ICD-10) Unknown I50.22 - Chronic [place], Active [place] 8 systolic (congestive) [facility] heart failure / Hospital I50.22(ICD-10) Repository Unknown I21.4 - Non-ST [place], Active [place] 8 elevation (NSTEMI) [facility] myocardial infarction / Hospital I21.4(ICD-10) Repository Unknown I48.2 - Chronic atrial [place], Active [place] 8 fibrillation / [facility] I48.2(ICD-10) Hospital Repository Active Other fecal NA Active [facility] abnormalities / Clinic Main R19.5(ICD-10) [place] Repository Active Generalized abdominal NA Active [facility] pain / R10.84(ICD-10) Clinic Main [place] Repository Active Diarrhea, unspecified / NA Active [facility] R19.7(ICD-10) Clinic Main [place] Repository Active Peripheral vascular NA Active [facility] disease, unspecified / Clinic Main I73.9(ICD-10) [place] Repository Unknown R07.9 - Chest pain, [place], [place] Active [place] 8 unspecified / Community R07.9(ICD-10) Hospital Repository Unknown R94.31 - Abnormal [place], [place] Active [place] 8 electrocardiogram [ECG] Community [EKG] / R94.31(ICD-10) Hospital Repository Unknown I48.91 - Unspecified [place], [place] Active [place] 8 atrial fibrillation / Community I48.91(ICD-10) Hospital Repository Admitting Pneumonia, unspecified Dcefkohl-[facility] Active [facility] 8 Diagnosis organism / , [facility] J18.9(ICD-10) Repository Admitting Nosocomial condition / Riefkohl-[place] Active [facility] 8 Diagnosis Y95(ICD-10) , [facility] Repository Admitting Hypertensive chronic [facility] 8 Diagnosis kidney disease w stg , [facility] 1-4/unsp chr kdny / Repository I12.9(ICD-10) Admitting Type 2 diabetes [facility] Active [facility] 8 Diagnosis mellitus w diabetic , [facility] chronic kidney disease Repository / E11.22(ICD-10) Admitting End stage renal disease [facility] Active [facility] 8 Diagnosis / N18.6(ICD-10) , [facility] Repository Admitting Unspecified atrial Dcefkohl-Gage Active [facility] 8 Diagnosis fibrillation / , [facility] I48.91(ICD-10) Repository Admitting Athscl heart disease of [facility] Active [facility] 8 Diagnosis rincon coronary artery , [facility] w/o ang pctrs / Repository I25.10(ICD-10) Admitting Chronic obstructive [facility] Active [facility] 8 Diagnosis pulmonary disease, , [facility] unspecified / Repository J44.9(ICD-10) Admitting Hyperlipidemia, Dcefkohl-Gage Active [facility] 8 Diagnosis unspecified / , [facility] E78.5(ICD-10) Repository Admitting Presence of cardiac Dcefkohl-Gage Active [facility] 8 Diagnosis pacemaker / , [facility] Z95.0(ICD-10) Repository Admitting Dependence on renal [facility] Active [place] [address] Diagnosis dialysis / , [facility] Z99.2(ICD-10) Repository Admitting Dependence on Riefkohl-Gage Active [facility] 8 Diagnosis supplemental oxygen / , [facility] Z99.81(ICD-10) Repository Admitting long-term (current) use [facility] [place] [address] Diagnosis of anticoagulants / , [facility] Z79.01(ICD-10) Repository 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 [facility] [address] Diagnosis of insulin / , [facility] Z79.4(ICD-10) Repository Admitting Latex allergy status / [facility] Active [place] [address] Diagnosis Z91.040(ICD-10) , [facility] Repository Admitting Allergy status to [facility] 8 Diagnosis penicillin / , [facility] Z88.0(ICD-10) Repository Admitting Allergy status to other [facility] [address] Diagnosis antibiotic agents , [facility] status / Z88.1(ICD-10) Repository Admitting Allergy status to [facility] [place] [address] Diagnosis sulfonamides status / , [facility] Z88.2(ICD-10) Repository Admitting Allergy status to [facility] Active [place] [address] Diagnosis narcotic agent status / , [facility] Z88.5(ICD-10) Repository Admitting Allergy status to Dcefkohl-Gage [facility] 8 Diagnosis analgesic agent status , [facility] / Z88.6(ICD-10) Repository Admitting Allergy status to oth [facility] [place] [address] Diagnosis drug/meds/biol subst , [facility] status / Z88.8(ICD-10) Repository Admitting Personal history of [facility] Active [place] [address] Diagnosis nicotine dependence / , [facility] Z87.891(ICD-10) Repository Admitting Chest pain, unspecified RiCristi Active [place] [address] Diagnosis / R07.9(ICD-10) , [facility] Repository Active Chronic kidney disease, VROBEL, [place] [address] unspecified / JOSE C TERRY 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 [place] [address] of insulin / [facility] Z79.4(ICD-10) [place] Repository Active Type 2 diabetes JOSH [place] [address] mellitus with diabetic [facility] Clinic Other chronic kidney disease [place] / E11.22(ICD-10) Repository Active Type 2 diabetes JOSH [place] [address] mellitus with [facility] Clinic Other hyperglycemia / [place] E11.65(ICD-10) Repository Active Chest pain, unspecified JOSH [place] [address] / R07.9(ICD-10) [facility] Clinic Other [place] Repository Active Unspecified atrial JOSH [place] [address] fibrillation / [facility] Clinic Other I48.91(ICD-10) [place] Repository Active Presence of cardiac JOSH [place] [address] pacemaker / [facility] Clinic Other Z95.0(ICD-10) [place] Repository Active Chronic combined JOSH [place] [address] systolic (congestive) [facility] Clinic Other and diastolic [place] (congestive) heart Repository failure / I50.42(ICD-10) Active Dyspnea, unspecified / JOSH [place] [address] R06.00(ICD-10) [facility] Clinic Other [place] Repository Active Acute systolic SCHMARIVEL, Active [facility] (congestive) heart [facility] Clinic Other failure / [place] I50.21(ICD-10) Repository Active Acute kidney failure, SCHMARIVEL, Active [facility] unspecified / [facility] Clinic Other N17.9(ICD-10) [place] Repository Active Acute respiratory SCHMARIVEL, Active [place] [facility] failure with hypoxia / [facility] Clinic Other J96.01(ICD-10) [place] Repository Active Chronic respiratory SCHUCKCURTIS, Active [place] [facility] failure with [facility] Clinic Other hypercapnia / [place] J96.12(ICD-10) Repository Active Obstructive sleep apnea JOSH Active [facility] (adult) (pediatric) / [facility] Clinic Other G47.33(ICD-10) [place] Repository Active Acute combined systolic SCHMARIVEL Active [place] [facility] (congestive) and [facility] Clinic Other diastolic (congestive) [place] heart failure / Repository I50.41(ICD-10) Active Other shelter NA Active [place] [address] (current) drug therapy Clinic Main / Z79.899(ICD-10) [place] Repository Active Palpitations / NA Active [place] [address] R00.2(ICD-10) Clinic Main [place] Repository Active Abnormal findings on NA Active [place] [address] diagnostic imaging of Clinic Other other parts of [place] digestive tract / Repository R93.3(ICD-10) Active Dysphagia, NA Active [place] [address] pharyngoesophageal Clinic Other phase / R13.14(ICD-10) [place] Repository Active Obstructive SCHMARIVEL Active [place] [address] [facility] Other cardiomyopathy / [place] I42.1(ICD-10) Repository Active Abnormal levels of SCHMARIVEL Active [place] [facility] other serum enzymes / [facility] Clinic Other R74.8(ICD-10) [place] Repository Active Hypo-osmolality and SCHMARIVEL Active [facility] hyponatremia / [facility] Clinic Other E87.1(ICD-10) [place] Repository Active Hyperkalemia / SCHUCKCURTIS [place] [address] E87.5(ICD-10) [facility] Clinic Other [place] Repository Active Diabetes mellitus due [place] [address] to underlying condition [facility] Clinic Other with hyperglycemia / [place] E08.65(ICD-10) Repository Active Diabetes mellitus due [place] [address] to underlying condition [facility] Other with diabetic chronic [place] kidney disease / Repository E08.22(ICD-10) Active Acute on chronic [place] [address] combined systolic [facility] Other (congestive) and [place] diastolic (congestive) Repository heart failure / I50.43(ICD-10) Active Acute diastolic [place] [address] (congestive) heart [facility] Other failure / [place] I50.31(ICD-10) Repository Active Hypoxemia / [place] [address] R09.02(ICD-10) [facility] Other [place] Repository Unknown N18.3 - Chronic kidney Jonna Martin Active [place] 8 disease, stage 3 Community (moderate) / Hospital N18.3(ICD-10) Repository Active Frequency of NA [place] [address] micturition / Clinic Main R35.0(ICD-10) [place] Repository Active Chronic obstructive CESAR, PEYMAN [place] [address] pulmonary disease with Clinic Other (acute) exacerbation / [place] J44.1(ICD-10) Repository Active Acute and chronic CESAR, PEYMAN [place] [address] respiratory failure Clinic Other with hypoxia / [place] J96.21(ICD-10) Repository Active Pneumonia, unspecified CESAR, PEYMAN [facility] 8 organism / Clinic Other J18.9(ICD-10) [place] Repository Active Disorder of arteries CESAR, PEYMAN [facility] 8 and arterioles, Clinic Other unspecified / [place] I77.9(ICD-10) Repository Active Other nonspecific CESAR, PEYMAN [facility] 8 abnormal finding of Clinic Other lung field / [place] R91.8(ICD-10) Repository Active Other obesity due to CESAR, PEYMAN [facility] 8 excess calories / Clinic Other E66.09(ICD-10) [place] Repository Active Body mass index (bmi) PEYMAN GUERRERO Active [place] 8 34.0-34.9, adult / Clinic Other Z68.34(ICD-10) [place] Repository Active Candidal stomatitis / PEYMAN GUERRERO Active [facility] 8 B37.0(ICD-10) Clinic Other [place] Repository Active Biventricular heart NA Active [facility] 8 failure / Clinic Main I50.82(ICD-10) [place] Repository Active Chronic systolic CHIP, Active [place] 8 (congestive) heart [facility]GOH[facility] Other failure / [place] I50.22(ICD-10) Repository Active Paroxysmal atrial CHIP, Active [place] 8 fibrillation / [place] Clinic Other I48.0(ICD-10) [place] Repository Active Shortness of breath / CESAR PEYMAN Active [place] 8 R06.02(ICD-10) Clinic Other [place] Repository Active Other pneumonia, CESAR, PEYMAN Active [facility] 8 unspecified organism / Clinic Other J18.8(ICD-10) [place] Repository Active Heart failure, CESAR PEYMAN Active [facility] 8 unspecified / Clinic Other I50.9(ICD-10) [place] Repository Active Acute on chronic PEYMAN GUERRERO Active [facility] 8 diastolic (congestive) Clinic Other heart failure / [place] I50.33(ICD-10) Repository Active Presence of automatic CESAR PEYMAN Active [facility] 8 (implantable) cardiac Clinic Other defibrillator / [place] Z95.810(ICD-10) Repository Active Presence of CESAR, PEYMAN Active [place] 8 aortocoronary bypass Clinic Other graft / Z95.1(ICD-10) [place] Repository Active Presence of coronary CESAR, PEYMAN Active [place] 8 angioplasty implant and Clinic Other graft / Z95.5(ICD-10) [place] Repository Active Hyperglycemia, CESAR, PEYMAN Active [facility] 8 unspecified / Clinic Other R73.9(ICD-10) [place] Repository Active Adverse effect of CESAR, PEYMAN Active [facility] 8 glucocorticoids and Clinic Other synthetic analogues, [place] initial encounter / Repository T38.0X5A(ICD-10) Active Acute and chronic PEYMAN GUERRERO Active [place] [address] respiratory failure Clinic Other with hypercapnia / [place] J96.22(ICD-10) Repository Active Nicotine dependence, PEYMAN GUERRERO Active [place] [address] cigarettes, in Clinic Other remission / [place] F17.211(ICD-10) Repository Active Hypoglycemia, PEYMAN GUERRERO Active [place] [address] unspecified / Clinic Other E16.2(ICD-10) [place] Repository Active Ischemic cardiomyopathy CHIP, [place] [address] / I25.5(ICD-10) [facility] Other [place] Repository Active Chronic atrial CHIP, [place] [address] fibrillation / [facility] Other I48.2(ICD-10) [place] Repository Active Left bundle-branch CHIP, [place] [address] block, unspecified / [facility] Other I44.7(ICD-10) [place] Repository Active Unknown / UNK(Unknown) [place], [address] Repository PROCEDURES PROCEDURES No Procedure Records FoundRESULTS RESULTS EMERGENCY DEPARTMENT Observed: 11/13/2018 Status: F Source: [place] SUMMARY 12:28 AM [facility] REPOSITORY [facility] Medical Records Department [address] [place] [id number] Emergency Department Summary 11/12/181914 MR#: [id number] Acct: [id number] Name: LUZ BACA Rep #: [id number] : 1940 78 From: Clay Brown MD PCP: Mook Kamara MD Status: DEP ER - ER Visit Summary Date of Service: 11/12/18 Chief Complaint: Strokelike symptoms History of Present Illness: The patient is a 78 F presenting for evaluation secondary to strokelike symptoms. Patient has an underlying history of poor health. She has coronary artery disease diabetes hypertension high cholesterol end- stage renal disease on dialysis A. fib and had a stroke last week. Patient stroke symptoms last week were associated with weakness on the left. Patient was evaluated at this facility, had a extensive workup in the emergency department and was noted to have vascular abnormalities in her carotids and was sent to a tertiary care center for vascular evaluation. Patient was ultimately discharged a couple of days ago back to a fpc without any intervention on her carotid arteries. She is on maximum therapy with anticoagulation, and is on blood pressure and cholesterol medications. Patient apparently today had an episode of speech difficulty at 315. Additionally this was associated with some left-sided facial droop. Symptoms have seem to since improved, patient has baseline left leg weakness secondary to the stroke. Physical Examination: Vital signs within normal limits. Well- nourished female no acute distress. Head normocephalic, moist mucous membranes. No JVD. Heart regular rate and rhythm 2 out of 6 systolic murmur. Lungs are clear with a right- sided chest port is clean dry and intact. Abdomen soft nontender. Extremities nontender. Skin normal color no rash. Patient's NIH stroke scale was found to be 1 secondary to left leg weakness which is the patient's new baseline. Test Results: Blood glucose found to be normal. CT brain demonstrates the patient's subacute right sided parietal stroke without any evidence of hemorrhagic transformation Emergency Department Course and Treatment: Patient presented secondary to possible new onset stroke symptoms. A CT brain shows subacute stroke, but no hemorrhagic transformation. I was not able to appreciate any sort of new stroke symptoms on this patient on multiple repeat evaluations through a 3-hour stay in the emergency department. I discussed patient's case on the telephone with neurology, and we are in agreement that the patient just recently underwent a full workup for stroke and is on maximal medical therapy. There is no indication for readmission at this time. I discussed this with family they are comfortable with this and the patient was discharged. Disposition: Discharge Impression: 1. Subacute right parietal stroke This note was generated with Psonar dictation software. It may contain incorrect words, spelling, and punctuation that were not noted in review of the chart prior to signing ED Disposition - Plan for ED Patient: Disposition: Home or Assisted Living Chief Complaint: Neuro S/Sx Diagnosis: Ischemic stroke Instructions: ED Stroke Completed Referrals: Mook Kamara MD [Primary Care Provider] - 5-7 Days What to do if you have Problems For any increased pain, shortness of breath, bleeding, nausea or vomiting, chest pain, or any unexpected problems, contact your Primary Care Provider. Call [facility] ([phone]) or report to the closest Emergency Room. Call 911 if necessary. 11/13/18 0028 <Electronically signed by Clay Brown MD> Date Clay Brown MD Cosigner Signature (If Indicated): Date CC: Mook Kamara MD BEDSIDE GLUCOSE Collected: 11/12/2018 Status: F Source: [place] 4:45 PM [facility] REPOSITORY TYPE CODE TESTS RESULT OUT OF REFERENCE UNITS RANGE LAB L501.080 70-110 mg/dL High BEDSIDE GLU 128 Result Comment: MANAGEMENT OF PATIENT CARE PER NURSING PROTOCOL Performed By: #### L501.080 #### [facility] Laboratory Point of Care [address] [place] [address] BRAIN/HEAD WITHOUT Observed: 11/12/2018 Status: F Source: [place] CONTRAST 4:22 PM [facility] REPOSITORY [facility] Imaging Services [address] [place] [address] Brain/Head without Contrast MR#: [id number] Acct: [id number] Name: LUZ BACA Rep #: [id number] : 1940 F 78 From: Christiano Israel MD PCP: Mook Kamara MD Status: REG ER Study: Brain/Head without Contrast Date of Exam: 11/12/18 Exam# [id number] Ordering Dr: Clay Brown MD ADDENDUM by Christiano Israel on 11/12/18 at 1721 STUDY: CT BRAIN WITHOUT CONTRAST REASON FOR EXAM: Female, 78 years old. Altered mental status. Slurred speech. RADIATION DOSAGE (If Supplied By Facility): CTDIvol = ( 44.99 ) mGy, DLP = ( 796.11 ) mGycm TECHNIQUE: Transaxial CT imaging of the brain was performed without administration of intravenous contrast material. Individualized dose optimization techniques were used for this CT. COMPARISON: Multiple previous exams including the CT scan 11/04/2018 and CTAs.. FINDINGS: There is a focal low-attenuation within the right parietal lobe consistent with acute or subacute infarction. No hemorrhage. No significant mass effect. No other changes. Mild atrophy. Diffuse chronic white matter disease. No midline shift. Normal visualized paranasal sinuses. 11/12/18 1721 Date cc: Mook Kamara MD; Clay Brown * Signed ADDENDUM by Christiano Israel on 11/12/[address]/Brain/Head without Contrast IMPRESSION: Moderate size nonhemorrhagic acute or subacute right parietal infarction. N.B. : The above information has been verbally conveyed by Christiano Israel MD to Clay Brown MD, on 11/12/2018 17:27:15 (ET). Electronically Signed: Christiano Israel MD at 17:21 EST , Service support , 11/12/18 1734 Date cc: Mook Kamara MD; Clay Brown * Signed We are attempting to reach Clay Brown MD to discuss findings. An addendum with communication details will be sent when the communication is complete. STUDY: CT BRAIN WITHOUT CONTRAST REASON FOR EXAM: Female, 78 years old. Altered mental status. Slurred speech. RADIATION DOSAGE (If Supplied By Facility): CTDIvol = ( 44.99 ) mGy, DLP = ( 796.11 ) mGycm TECHNIQUE: Transaxial CT imaging of the brain was performed without administration of intravenous contrast material. Individualized dose optimization techniques were used for this CT. COMPARISON: Multiple previous exams including the CT scan 11/04/2018 and CTAs.. FINDINGS: There is a focal low-attenuation within the right parietal lobe consistent with acute or subacute infarction. No hemorrhage. No significant mass effect. No other changes. Mild atrophy. Diffuse chronic white matter disease. No midline shift. Normal visualized paranasal sinuses. CT/Brain/Head without Contrast IMPRESSION: Moderate size nonhemorrhagic acute or subacute right parietal infarction. Electronically Signed: Christiano Israel MD at 17:21 EST , Service support , CC: Mook Kamara MD; Clay Brown Service Delivery Supervisor: Signed CBC-COMPLETE BLOOD CNT Collected: 11/12/2018 Status: F Source: [place] NO DIFF 7:25 AM [facility] REPOSITORY TYPE CODE TESTS RESULT OUT OF RANGE REFERENCE UNITS LAB L100.1000 4.4-11.0 K/mm3 Normal WBC 7.8 LAB L100.1200 4.2-5.4 M/mm3 Low RBC 4.04 LAB L100.1300 12.0-15.0 g/dl Normal HGB 12.6 LAB L100.1400 37-47 % Normal HCT 40.6 LAB L100.1500 81-99 fL High MCV 100.5 LAB L100.1600 27.0-32.0 pg Normal MCH 31.2 LAB L100.1700 32-36 g/gl Low MCHC 31.0 LAB L100.1810 11.6-14.6 % Normal RDW CV 14.6 LAB L100.1820 35.1-43.9 fl High RDW SD 53.9 LAB L100.1900 150-450 K/mm3 Normal PLT 182 LAB L100.2000 6.2-12.0 fl Normal MPV 9.6 Performed By: #### L100.0500 #### [facility] [address] [place], [address] BASIC METABOLIC Collected: 11/12/2018 Status: F Source: [place] PROFILE (BMP) 7:25 AM [facility] REPOSITORY TYPE CODE TESTS RESULT OUT OF RANGE REFERENCE UNITS LAB L501.0100 74-106 mg/dL Low GLU 66 Result Comment: Please note revised GLUCOSE reference range effective 2017. LAB L501.1000 7-18 mg/dL Normal BUN 14 LAB L501.1100 0.55-1.02 mg/dL High CREAT,SERUM 4.15 Result Comment: The validity of the calculated GFR AND GFRAA in patients over 70 years has not been determined. Clinical correlation is essential. LAB L501.1110 >60 mL/min Low EST GFR 11 Result Comment: Non- GFR Calc LAB L501.1115 >60 mL/min Low EST GFR - AA 13 Result Comment: GFR Calc LAB L501.1300 10-20 RATIO Low BUN/CRE 3.4 LAB L501.2200 8.5-10.1 mg/dL Low CA 8.3 LAB L501.5300 136-145 mmol/L Normal NA 138 LAB L501.5600 3.5-5.1 mmol/L Normal K 3.5 LAB L501.5900 98-107 mmol/L Normal CL 99 LAB L501.6100 21.0-32.0 mmol/L High CO2 33.0 LAB L501.6200 5-15 Normal GAP 6 Performed By: #### L500.2500 #### [facility] [address] [place], [address] CONSULTATION Observed: 11/11/2018 Status: F Source: [place] 1:49 PM [facility] REPOSITORY [facility] Medical Records Department [facility] [place] [address] Consultation 11/04/18 1405 MR#: [id number] Acct: [id number] Name: LUZ BACA Rep #: [id number] : 1940 78 From: Elyse Gary MD PCP: Mook Kamara MD Status: DEP ER Y Location: ED Problem List (1) TIA (transient ischemic attack) Status: Acute Reason for Consult Date of Consultation: 11/04/18 Reason for Consultation: TIA History of Present Illness: The patient is a 78 year old F with PMH HTN, HLD, DM, ESRD on HD, CAD s/p CABG, Afib not on AC, s/p pacer, PVD, COPD admitted with slurred speech and left arm weakness. Per daughter patient was taken for HD this morning (11/04/18) when she had acute onset slurred speech, with facial droop and left arm weakness, left arm became limp per daughter and the whole event lasted for about 5-10 mins. At present patient is at her baseline, denies any speech disturbances, BAUER, dizziness, focal motor weakness, sensory loss, visual disturbances. NIHSS in the ED was 0. Per daughter she was on Eliquis which was stopped about a month ago for some surgery and she was never restarted. Patient lives with her daughter, uses walker to ambulate, denies any frequent falls, does need assistance for her ADLS. CT head done in the ED reported nothing acute, CTA head/neck reported to show b/l ICA severe high grade stenosis with near complete occlusion. [] Past Medical History Past Medical History (Chronic Problems): Chronic Problems (Last Updated 06/16/18 @ 10:57 by Arline Galindo) Hx of atrioventricular node ablation (Chronic 12/19/14) AV node RFA X2 noriega per report;Subsequent implant of single chamber ICD per Dr. 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 Cheung @ [facility]. Also subsequent PCI's :PCI X 6 to RCA in 2013; PCI X 3 in 2014: reports not available but referenced in Dr. Cardona's office visit dated 05/24/2018 History of ventricular septal myectomy (Chronic 07/18/04) Septal Myectomy and CABG X 2 with Left internal thoracic artery to the LAD, and reversed SVG of the PDA per Dr. Cheung @ [facility] S/P CABG x 2 (Chronic 07/18/04) Septal Myectomy and CABG X 2 with Left internal thoracic artery to the LAD, and reversed SVG of the PDA per Dr. Cheung @ [facility] Hypertension (Chronic) Hyperlipidemia (Chronic) Type 2 diabetes mellitus (Chronic) COPD (chronic obstructive pulmonary disease) (Chronic) Chronic hypoxemic respiratory failure (Chronic) Atrial fibrillation (Chronic) 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 12/11/16) Initial single chamber ICD implant was 12/19/[address] Loya @ [facility] [place]. S/P EP/RFA; subsequent upgrade to combination pacer/ICD implant 12/11/16 [facility] [facility] 1411-36Q End stage renal disease (Chronic) Diabetic neuropathy (Chronic) Peripheral vascular disease (Chronic) Venous insufficiency of both lower extremities (Chronic) Congestive heart failure (Chronic) History of PTCA (Chronic) PCI X 6 to RCA in 2013; PCI X 3 in 2014: reports not available but referenced in Dr. 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 Cheung @ [facility]. Also subsequent PCI's :PCI X 6 to RCA in 2013; PCI X 3 in 2014: reports not available but referenced in Dr. Cardona's office visit dated 05/24/2018 Hypertension (Chronic) I10 Hyperlipidemia (Chronic) E78.5 Type 2 diabetes mellitus (Chronic) E11.9 COPD (chronic obstructive pulmonary disease) (Chronic) J44.9 Chronic hypoxemic respiratory failure (Chronic) J96.11 Atrial fibrillation (Chronic) I48.91 End stage renal disease (Chronic) N18.6 Diabetic neuropathy (Chronic) E11.40 Peripheral vascular disease (Chronic) I73.9 Venous insufficiency of both lower extremities (Chronic) I87.2 Congestive heart failure (Chronic) I50.9 Allergies latex Allergy (Verified 11/04/18 13:23) Anaphylaxis meperidine [From Demerol] Allergy (Verified 11/04/18 13:23) Hives Penicillins Allergy (Verified 11/04/18 13:23) Hives Tetracyclines Allergy (Verified 11/04/18 13:23) Hives aspirin Adverse Reaction (Verified 11/04/18 13:23) Unknown atorvastatin Adverse Reaction (Verified 11/04/18 13:23) Unknown codeine Adverse Reaction (Verified 11/04/18 13:23) Unknown hydromorphone [From Dilaudid] Adverse Reaction (Verified 11/04/18 13:23) Unknown pentazocine Adverse Reaction (Verified 11/04/18 13:23) Unknown pioglitazone Adverse Reaction (Verified 11/04/18 13:23) Unknown propoxyphene Adverse Reaction (Verified 11/04/18 13:23) Unknown sulfamethoxazole [From Bactrim] Adverse Reaction (Verified 11/04/18 13:23) Unknown trimethoprim [From Bactrim] Adverse Reaction (Verified 11/04/18 13:23) Unknown chloroprep Allergy (Uncoded 11/04/18 13:23) Unknown Home Medications: Ambulatory Orders Medication Instructions Recorded Amiodarone HCl 200 mg PO DAILY 05/11/18 Bumetanide [Bumex] 2.5 mg PO DAILY 11/04/18 Surgical History: Surgical History (Last Updated 06/16/18 @ 10:57 by Arline Galindo) Hx of atrioventricular node ablation (Chronic) Onset Date: 12/19/14 Z98.890 AV node RFA X2 noriega per report;Subsequent implant of single chamber ICD per Dr. Loya @ [facility], [place] History of ventricular septal myectomy (Chronic) Onset Date: 07/18/04 Z98.890 Septal Myectomy and CABG X 2 with Left internal thoracic artery to the LAD, and reversed SVG of the PDA per Dr. Cheung @ [facility] S/P CABG x 2 (Chronic) Onset Date: 07/18/04 Z95.1 Septal Myectomy and CABG X 2 with Left internal thoracic artery to the LAD, and reversed SVG of the PDA per Dr. Cheung @ [facility] 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) Onset Date: 12/11/16 Z95.810 Initial single chamber ICD implant was 12/19/[address] Loya @ [facility] [place]. S/P EP/RFA; subsequent upgrade to combination pacer/ICD implant 12/11/16 [facility] [facility] VR 1411-36Q Surgical History: angioplasty, cholecystectomy, coronary bypass surgery, hysterectomy, pacemaker implantation, - Lives: With Family Smoking Status: Former smoker Alcohol: None Drugs: None - *Family History Maternal Family History: Family History (Last Updated 06/16/18 @ 10:47 by Arline Galindo) Unknown No problems noted. History Items: Hypertension Paternal Family History: Family History (Last Updated 06/16/18 @ 10:47 by Arline Galindo) Unknown No problems noted. History Items: Heart Disease Review of Systems Constitutional: Reports: - - complete ROS negative except as documented in HPI Patient Problems: Active and Suspected Problems (Last Reviewed 06/14/18 @ 10:42 by Arline Galindo) Dermatitis of lower extremity (Acute) TIA (transient ischemic attack) (Acute) - Physical Exam General: Alert HEENT: Normocephalic Neck: Supple Lungs: Normal air movement Cardiovascular: Normal S1, Normal S2 Abdomen: Bowel Sounds Present Extremities: No cyanosis Skin: - - B/L LE reddness, has gauze dressing, per daughter has been told she has dermatitis Neurological: - - consious, alert, AoAx3, CN 2-12 grossly intact, no speech disturbances at present, power 5/5 both UE, moves both LE (but is at baseline per patient and daughter), denies any sensory loss, no cerebellar signs, Reflexes -B/L B/S/T/K/A, gait deferred, NIHSS 0 at present and mRS 3 at baseline Psych/Mental Status: Normal Affect Vital Signs Temp Pulse Resp BP Pulse Ox 97.8 F 67 18 124/62 H 95 11/04/18 11:02 11/04/18 13:32 11/04/18 13:32 11/04/18 13:32 11/04/18 13:00 Oxygen Flow Rate (L/min) 2.5 Oxygen Delivery Method Nasal Cannula Weight: 96.8 kg Body Mass Index (BMI) 32.4 Finger Stick Blood Glucose 149 Laboratory Tests Past 24 Hrs POC Glucose POC Glucose 149 H Assessment/Plan All Active Problems (Last Reviewed 06/14/18 @ 10:42 by Arline Galindo) Dermatitis of lower extremity (Acute) TIA (transient ischemic attack) (Acute) NSTEMI (non-ST elevated myocardial infarction) (Acute 05/11/18) The patient is a 78 year old F with PMH HTN, HLD, DM, ESRD on HD, CAD s/p CABG, Afib not on AC, s/p pacer, PVD, COPD admitted with slurred speech and left arm weakness. Per daughter patient was taken for HD this morning (11/04/18) when she had acute onset slurred speech, with facial droop and left arm weakness, left arm became limp per daughter and the whole event lasted for about 5-10 mins. At present patient is at her baseline, denies any speech disturbances, BAUER, dizziness, focal motor weakness, sensory loss, visual disturbances. NIHSS in the ED was 0. Per daughter she was on Eliquis which was stopped about a month ago for some surgery and she was never restarted. Patient lives with her daughter, uses walker to ambulate, denies any frequent falls, does need assistance for her ADLS. CT head done in the ED reported nothing acute, CTA head/neck reported to show b/l ICA severe high grade stenosis with near complete occlusion. Impression Possible TIA Severe ICA stenosis bilaterally Plan -Check repeat CT head in 24 hrs -ASA 81 mg PO once daily if no contraindication -Eliquis 2.5 mg PO BID if no contraindication. Bleeding risks discussed. Patient should be on Coumadin given the renal failure but per patient she was on Coumadin in the past and was bleeding a lot. hence was changed to Eliquis which per patient she has tolerated well but has been off for a month. -Lipitor 40 mg PO q hs -Vascular surgery consult MALIHA for possible CEA. Discussed with ED admitting physician and patient might need to be transferred for further management for her high grade severe carotid stenosis given her multiple comorbidities and complexity of current medical situation. -Nephrology consult for HD, post CTA -Check LDL, Hba1c, and TTE -Stroke risk factors discussed and stroke education provided -Fall precautions -Permissive HTN for 24 hrs. Avoid hypotension -PT/OT and ST -GI/DVT prophylaxis -Further medical management per hospitalist and ED team -Neurology follow up as outpatient in 4 weeks -Please call with questions if any -Thank you for allowing us to participate in patient's care and management Code Visit Inpatient Isaak AND M: [id number] Init Hosp L3 11/11/18 1840 <Electronically signed by Elyse Gary MD> Date Elyse Gary MD Cosigner Signature (if applicable): Date CC: Mook Kamara MD Signed PROGRESS Observed: 11/11/2018 Status: COMPLETED Source: [place] 9:45 AM [facility] [place] REPOSITORY HNO ID: [id number] Author: Remi Minor Service: (none) Author Type: Inspector Watch Assembly Type: Progress Notes Filed: 11/11/2018 9:46 AM Note Text: Noted. I will follow up next week. Remi Minor MA PROGRESS Observed: 11/10/2018 Status: COMPLETED Source: [place] 3:34 PM [facility] REPOSITORY HNO ID: [id number] Author: Jameson Kamara Service: (none) Author Type: Physician Type: Progress Notes Filed: 11/10/2018 3:35 PM Note Text: Reviewed. Patient to have TCM after discharge from post acute facility. Thanks. PROGRESS Observed: 11/10/2018 Status: COMPLETED Source: [place] 2:31 PM [facility] REPOSITORY HNO ID: [id number] Author: Remi Briseno) Brent Service: (none) Author Type: Registered Nurse Type: Progress Notes Filed: 11/10/2018 2:39 PM Note Text: TRANSITION CARE MANAGEMENT (TCM) DISCHARGE TO POST ACUTE FACILITY POST ACUTE TRANSFER SUMMARY: -Pt discharged from [facility] on 11/10/18. -Post Acute Facility [facility] [phone] -Admitted for: ASSESSMENT AND PLAN 1. Right hemispheric Acute Stroke ? - Left-sided weakness R53.1 - Acute left-sided weakness M62.89 - Left carotid artery stenosis I65.22 Vascular surgery was consulted and recommended no intervention. Patient unable to have MRI because of pacer. C/W khalif Wick for now, pt cannot tolerate warfarin per daughter who manages her meds. She reported [place] M[place] done, speech recommends mechanical soft, thin liquids. ?repeat echo shows severe L atrial dilation with low EF, Will consult cardiology. ? 2. ?Atrial Fibrillation C/W eliquis, amiodarone. ? 3.prolonged qt- will monitor ? 4. ESRD C/W HD per nephrology. ? 5. HTN C/W monitoring closely. ? 6. GERD C/w PPI, Reglan. ? 7. CAD C/W elliquis, imdur, crestor. ? 8. Dysphagia- mechanical soft, thin liquids. Medication Sig. Disp. Refills Start Date End Date traMADol (ULTRAM) 50 MG tablet? Indications: Chronic midline low back pain without sciatica Take 1 tablet by mouth every 8 hours as needed for Pain for up to 3 days.. 30 tablet? 0 11/10/2018 11/13/2018 loperamide (IMODIUM) 2 MG capsule? Take 1 capsule by mouth 4 times daily as needed for Diarrhea 15 capsule? 0 11/10/2018 11/20/2018 rosuvastatin (CRESTOR) 20 MG tablet? Take 1 tablet by mouth nightly 30 tablet? 3 11/10/2018 ? lisinopril (PRINIVIL;ZESTRIL) 2.5 MG tablet? Take 1 tablet by mouth daily 30 tablet? 3 11/11/2018 ? metoprolol succinate (TOPROL XL) 25 MG extended release tablet? Take 1 tablet by mouth daily 30 tablet? 3 11/11/2018 ? diphenhydrAMINE-zinc acetate (BENADRYL) 1-0.1 % cream? Apply topically 3 times daily as needed. 1 Tube? 0 11/10/2018 ? miconazole (MICOTIN) 2 % powder? Apply topically 2 times daily. 45 g? 1 11/10/2018 ? metoclopramide (REGLAN) 5 MG tablet? Take 5 mg by mouth 2 times daily ? pregabalin (LYRICA) 25 MG capsule? Take 25 mg by mouth daily. Take additional tablet after dialysis MWF . ? docusate sodium (COLACE) 100 MG capsule? Take 100 mg by mouth 2 times daily as needed for Constipation ? insulin glargine (LANTUS) 100 UNIT/ML injection vial? Inject 24 Units into the skin nightly M// 24 units ? polyethylene glycol (GLYCOLAX) powder? Take 17 g by mouth 2 times daily as needed (constipation) ? pantoprazole (PROTONIX) 40 MG tablet? Take 40 mg by mouth daily ? amiodarone (CORDARONE) 200 MG tablet? Take 200 mg by mouth daily ? ipratropium-albuterol (DUONEB) 0.5-2.5 (3) MG/3ML SOLN nebulizer solution? Inhale 1 vial into the lungs every 4 hours ? Apixaban (ELIQUIS PO)? Take 5 mg by mouth 2 times daily ? insulin glargine (LANTUS) 100 UNIT/ML injection vial? Inject 16 Units into the skin nightly Night before dialysis (bethany, paige, francia) 16 units ? Remi Kennedy RN November 10, 2018 2:35 PM DISCHARGE SUMMARY Observed: 11/10/2018 Status: F Source: [place] 11:49 AM SYSTEM REPOSITORY Discharge Summary Luz Keven : 1940 ADMIT DATE: 11/05/2018 DISCHARGE DATE: 11/10/2018 PRIMARY CARE PHYSICIAN: Jameson Kamara MD VISIT STATUS: Admission CODE STATUS: Prior DISCHARGE DIAGNOSES: Active Problems: Left-sided weakness Acute left-sided weakness Left carotid artery stenosis Resolved Problems: * No resolved hospital problems. * HOSPITAL COURSE: Admitted for cva with L SIDED weakness and slurred speech, neuro consulted, found to have L CAROTID artery stenosis, vascular consulted and recommended med management. Pt had dysphagia, speech was on board, MBS suggested pharyngeal dys and started on pureed diet, echo Showed worsening EF, Cardio consulted, ptot recommended inpt rehab. CONSULTANTS: Cardio, nephro DISCHARGE MEDICATIONS: Luz Baca Home Medication Instructions ETHEL:[id number] Printed on:11/11/18 1320 Medication Information amiodarone (CORDARONE) 200 MG tablet Take 200 mg by mouth daily Apixaban (ELIQUIS PO) Take 5 mg by mouth 2 times daily diphenhydrAMINE-zinc acetate (BENADRYL) 1-0.1 % cream Apply topically 3 times daily as needed. docusate sodium (COLACE) 100 MG capsule Take 100 mg by mouth 2 times daily as needed for Constipation insulin glargine (LANTUS) 100 UNIT/ML injection vial Inject 16 Units into the skin nightly Night before dialysis (bethany, ambrosee, thur) 16 units insulin glargine (LANTUS) 100 UNIT/ML injection vial Inject 24 Units into the skin nightly // 24 units ipratropium-albuterol (DUONEB) 0.5-2.5 (3) MG/3ML SOLN nebulizer solution Inhale 1 vial into the lungs every 4 hours lisinopril (PRINIVIL;ZESTRIL) 2.5 MG tablet Take 1 tablet by mouth daily loperamide (IMODIUM) 2 MG capsule Take 1 capsule by mouth 4 times daily as needed for Diarrhea metoclopramide (REGLAN) 5 MG tablet Take 5 mg by mouth 2 times daily metoprolol succinate (TOPROL XL) 25 MG extended release tablet Take 1 tablet by mouth daily miconazole (MICOTIN) 2 % powder Apply topically 2 times daily. pantoprazole (PROTONIX) 40 MG tablet Take 40 mg by mouth daily polyethylene glycol (GLYCOLAX) powder Take 17 g by mouth 2 times daily as needed (constipation) pregabalin (LYRICA) 25 MG capsule Take 25 mg by mouth daily. Take additional tablet after dialysis MWF . rosuvastatin (CRESTOR) 20 MG tablet Take 1 tablet by mouth nightly traMADol (ULTRAM) 50 MG tablet Take 1 tablet by mouth every 8 hours as needed for Pain for up to 3 days.. DIET: renal diet ACTIVITY: No restriction. up with assist SIGNIFICANT DIAGNOSTIC STUDIES: none COMPLEXITY OF FOLLOW UP: [] Moderate Complexity: follow up within 7-14 calendar days (22157) [x] Severe Complexity: follow up within 7 calendar days (90320) FOLLOW UP TESTING, PENDING RESULTS OR REFERRALS AT TRANSITIONAL CARE VISIT: [x] Yes [] No PENDING STUDIES: none RECOMMENDED NEXT STEPS: none DISPOSITION: Skilled Facility Follow up with Jameson Kamara MD in 1 week INSTRUCTIONS TO MA/SW: Please call patient on day after discharge (must document patient contacted within 2 business days of discharge). FOLLOW UP QUESTIONS FOR MA/SW: 1. Did you get medications filled and taking them as instructed from discharge? 2. Are you following your discharge instructions from your hospital stay? 3. Please confirm patient is scheduled for a follow up appointment within the above time frame. DISCHARGE TIME: > 30 minutes SIGNED: SHELLY WEN MD 11/11/2018, 1:20 PM GLUCOSE,BEDSIDE Collected: 11/10/2018 Status: F Source: [facility] 7:58 AM SYSTEM REPOSITORY TYPE CODE TESTS RESULT OUT OF RANGE REFERENCE UNITS LAB BGLU 70-100 mg/dL High 114 Glucose,Beds kenneth Result Comment: Test performed by glucose meter. Results may be 10%-15% lower than serum/plasma values. (CLIA ID [id number]) Performed By: #### BGLU #### [facility] [address] [place] [address] GLUCOSE,BEDSIDE Collected: 11/10/2018 Status: F Source: [facility] 7:02 AM SYSTEM REPOSITORY TYPE CODE TESTS RESULT OUT OF RANGE REFERENCE UNITS LAB BGLU 70-100 mg/dL Normal 77 Glucose,Beds kenneth Result Comment: Test performed by glucose meter. Results may be 10%-15% lower than serum/plasma values. (CLIA ID [id number]) Performed By: #### BGLU #### [facility] [address] [place] [address] GLUCOSE,BEDSIDE Collected: 11/10/2018 Status: F Source: [facility] 12:38 AM SYSTEM REPOSITORY TYPE CODE TESTS RESULT OUT OF RANGE REFERENCE UNITS LAB BGLU 70-100 mg/dL High 104 Glucose,Beds kenneth Result Comment: Test performed by glucose meter. Results may be 10%-15% lower than serum/plasma values. (CLIA ID [id number]) Performed By: #### BGLU #### [facility] [address] [place] [phone] CNPTOUTREACH Observed: 11/10/2018 Status: COMPLETED Source: [place] 12:00 AM [facility] REPOSITORY Patient Outreach (FAMPWS) LUZ BACA ([id number]) 1940 F Date Time Provider Department 11/10/18 REMI KENNEDY (RN) FAMPWS During your visit today, we recorded the following information about you: Remi Kennedy RN 11/10/2018 2:39 PM Signed TRANSITION CARE MANAGEMENT (TCM) DISCHARGE TO POST ACUTE FACILITY POST ACUTE TRANSFER SUMMARY: -Pt discharged from [facility] on 11/10/18. -Post Acute Facility [facility] [place] [place] [phone] -Admitted for: ASSESSMENT AND PLAN 1. Right hemispheric Acute Stroke ? - Left-sided weakness R53.1 - Acute left-sided weakness M62.89 - Left carotid artery stenosis I65.22 Vascular surgery was consulted and recommended no intervention. Patient unable to have MRI because of pacer. C/W khalif Wick for now, pt cannot tolerate warfarin per daughter who manages her meds. She reported that it [place] [employer] [place] Repeat MBS done, speech recommends mechanical soft, thin liquids. ?repeat echo shows severe L atrial dilation with low EF, Will consult cardiology. ? 2. ?Atrial Fibrillation C/W eliquis, amiodarone. ? 3.prolonged qt- will monitor ? 4. ESRD C/W HD per nephrology. ? 5. HTN C/W monitoring closely. ? 6. GERD C/w PPI, Reglan. ? 7. CAD C/W leila wickdukhalif mason. ? 8. Dysphagia- mechanical soft, thin liquids. Medication Sig. Disp. Refills Start Date End Date traMADol (ULTRAM) 50 MG tablet? Indications: Chronic midline low back pain without sciatica Take 1 tablet by mouth every 8 hours as needed for Pain for up to 3 days.. 30 tablet? 0 11/10/2018 11/13/2018 loperamide (IMODIUM) 2 MG capsule? Take 1 capsule by mouth 4 times daily as needed for Diarrhea 15 capsule? 0 11/10/2018 11/20/2018 rosuvastatin (CRESTOR) 20 MG tablet? Take 1 tablet by mouth nightly 30 tablet? 3 11/10/2018 ? lisinopril (PRINIVIL;ZESTRIL) 2.5 MG tablet? Take 1 tablet by mouth daily 30 tablet? 3 11/11/2018 ? metoprolol succinate (TOPROL XL) 25 MG extended release tablet? Take 1 tablet by mouth daily 30 tablet? 3 11/11/2018 ? diphenhydrAMINE-zinc acetate (BENADRYL) 1-0.1 % cream? Apply topically 3 times daily as needed. 1 Tube? 0 11/10/2018 ? miconazole (MICOTIN) 2 % powder? Apply topically 2 times daily. 45 g? 1 11/10/2018 ? metoclopramide (REGLAN) 5 MG tablet? Take 5 mg by mouth 2 times daily ? pregabalin (LYRICA) 25 MG capsule? Take 25 mg by mouth daily. Take additional tablet after dialysis MWF . ? docusate sodium (COLACE) 100 MG capsule? Take 100 mg by mouth 2 times daily as needed for Constipation ? insulin glargine (LANTUS) 100 UNIT/ML injection vial? Inject 24 Units into the skin nightly M/w/f 24 units ? polyethylene glycol (GLYCOLAX) powder? Take 17 g by mouth 2 times daily as needed (constipation) ? pantoprazole (PROTONIX) 40 MG tablet? Take 40 mg by mouth daily ? amiodarone (CORDARONE) 200 MG tablet? Take 200 mg by mouth daily ? ipratropium-albuterol (DUONEB) 0.5-2.5 (3) MG/3ML SOLN nebulizer solution? Inhale 1 vial into the lungs every 4 hours ? Apixaban (ELIQUIS PO)? Take 5 mg by mouth 2 times daily ? insulin glargine (LANTUS) 100 UNIT/ML injection vial? Inject 16 Units into the skin nightly Night before dialysis (bethany, paige, francia) 16 units ? Remi Kennedy RN November 10, 2018 2:35 PM Jameson Kamara MD 11/10/2018 3:35 PM Signed Reviewed. Patient to have TCM after discharge from post acute facility. Thanks. Remi Minor MA 11/11/2018 9:46 AM Signed Noted. I will follow up next week. Remi Minor MA Allergies As of Date: 11/10/2018 Noted Allergy Reaction ASPIRIN 01/20/2018 14 - Other: See Comments Comments: Patient states that she bled out every orifice, sts not allowed to take it at all. Patient states she was bleeding out of nose and mouth after one dose. BACTRIM (SULFAMETHOXAZOLE-TRIMETH*05/17/2017 14 - Other: See Comments Comments: My throat swells up. LATEX 05/17/2017 2 - Rash 9 - Itching Comments: Itching and welts. No wheezing or shortness of breath. PENICILLINS 07/14/2004 2 - Rash 9 - Itching Comments: Tolerated ceftriaxone during 11/2017 admission and cefepime during 12/2017 admission TETRACYCLINE 09/29/2010 2 - Rash 8 - GI Upset Comments: Emesis and diarrhea. ATORVASTATIN 05/17/2017 2 - Rash CODEINE 05/17/2017 14 - Other: See Comments Comments: Numbness DILAUDID (HYDROMORPHONE (BULK)) 05/17/2017 1 - Mental Status Change MEPERIDINE 07/14/2004 PENTAZOCINE 07/14/2004 PIOGLITAZONE 05/17/2017 16 - Unknown PROPOXYPHENE 07/14/2004 Date Reviewed: 11/03/2018 Reviewed by: Sean Han Ma - Fully Assessed Reason for Visit: Transition Of Care [4074] Prescriptions as of 11/10/2018 Sig: INSULIN GLARGINE (U-100) 100 * Night before dialysis (Sun, T* PREGABALIN 25 MG CAPSULE Take 2 tablet PO daily with a* APIXABAN 5 MG TABLET Take 1 tablet by mouth twice * RANITIDINE 150 MG TABLET Take 1 tablet by mouth twice * DOCUSATE SODIUM 100 MG CAPSULE Take 1 capsule by mouth twice* ONDANSETRON HCL 4 MG TABLET Take 1 tablet by mouth every * COMPOUNDED PRESCRIPTION Rosalind boots to be worn daily fo* METOCLOPRAMIDE 5 MG TABLET Take 0.5 tablets by mouth thr* AMIODARONE 200 MG TABLET Take 1 tablet by mouth once d* SIMVASTATIN 40 MG TABLET Take 1 tablet by mouth every * ISOSORBIDE MONONITRATE ER 30 * TAKE THREE TABLETS BY MOUTH O* INSULIN ASPART U-100 100 UNI* Using Sliding Scale: 150-209* POLYETHYLENE GLYCOL 3350 17 G* Use 1-2 times daily as needed* PANTOPRAZOLE 40 MG TABLET,DEL* Take 1 tablet by mouth once d* SENNOSIDES 8.6 MG TABLET Take 8.6 mg by mouth once carlos* IPRATROPIUM-ALBUTEROL 0.5 MG-* Inhale 3 mL as instructed leanne* NYSTATIN 100,000 UNIT/GRAM TO* Apply 1 application to affect* NITROGLYCERIN 0.4 MG SUBLINGU* Dissolve 1 tablet under the t* OXYGEN (HOME THERAPY) Inhale 2.5 L/min as instructe* Problem List As Of Date 11/10/2018 Noted Resolved HOCM (hypertrophic obstructive cardiomyopathy) * 01/23/2018 More... SVT (supraventricular tachycardia) (HCC) [I47.1] 01/21/2018 More... Carotid artery disease (HCC) [I77.9] 01/22/2018 CAD (coronary artery disease) [I25.10] More... Hypertension [I10] More... Hyperlipidemia [E78.5] Pneumonia [J18.9] 10/27/2017 More... COPD (chronic obstructive pulmonary disease) (H* More... Sleep apnea [G47.30] More... HH (hiatus hernia) [K44.9] 01/21/2018 GERD (gastroesophageal reflux disease) [K21.9] More... More... Arthritis [M19.90] Numbness and tingling of right leg [R20.0, R20.* 01/21/2018 Depression [F32.9] Atrial fibrillation (HCC) [I48.91] INVALID FOR* More... Controlled type 2 diabetes mellitus with chroni*INVALID FOR* More... More... More... Heart failure, systolic, acute (HCC) [I50.21] INVALID FOR*01/21/2018 More... Obesity [E66.09] INVALID FOR* More... Gout [M10.9] Pacemaker [Z95.0] More... Chronic combined systolic and diastolic CHF (co*INVALID FOR* More... Elevated troponin [R74.8] INVALID FOR*01/22/2018 More... Pulmonary hypertension (HCC) [I27.20] INVALID FOR* Oral thrush [B37.0] INVALID FOR*01/21/2018 Hyponatremia [E87.1] INVALID FOR* More... Hyperkalemia [E87.5] INVALID FOR*01/22/2018 Chest pain in adult [R07.9] INVALID FOR*02/12/2018 More... Acute renal failure superimposed on stage 3 chr*INVALID FOR* More... Obesity, Class II, BMI 35-39.9 [E66.9] INVALID FOR* ESRD on dialysis (HCC) [N18.6, Z99.2] INVALID FOR* More... Chronic hypoxemic respiratory failure (HCC) [J9*INVALID FOR* Bilateral leg ulcer, limited to breakdown of sk*INVALID FOR* ESRD (end stage renal disease) (HCC) [N18.6] INVALID FOR*11/03/2018 More... AV fistula (HCC) [I77.0] INVALID FOR* More... Hypotension [I95.9] INVALID FOR* More... Chronic anticoagulation [Z79.01] INVALID FOR* Encounter Status:Closed by REMI KENNEDY on 11/10/18 GLUCOSE,BEDSIDE Collected: 11/09/2018 Status: F Source: [facility] 10:06 PM SYSTEM REPOSITORY TYPE CODE TESTS RESULT OUT OF RANGE REFERENCE UNITS LAB BGLU 70-100 mg/dL High 137 Glucose,Beds kenneth Result Comment: Test performed by glucose meter. Results may be 10%-15% lower than serum/plasma values. (CLIA ID [id number]) Performed By: #### BGLU #### [facility] [address] [place] [id number] GLUCOSE,BEDSIDE Collected: 11/09/2018 Status: F Source: [facility] 6:18 PM SYSTEM REPOSITORY TYPE CODE TESTS RESULT OUT OF RANGE REFERENCE UNITS LAB BGLU 70-100 mg/dL Normal 89 Glucose,Beds kenneth Result Comment: Test performed by glucose meter. Results may be 10%-15% lower than serum/plasma values. (CLIA ID [id number]) Performed By: #### BGLU #### [facility] [address] [place] [address] GLUCOSE,BEDSIDE Collected: 11/09/2018 Status: F Source: [facility] 5:56 PM SYSTEM REPOSITORY TYPE CODE TESTS RESULT OUT OF RANGE REFERENCE UNITS LAB BGLU 70-100 mg/dL Low 64 Glucose,Beds kenneth Result Comment: Test performed by glucose meter. Results may be 10%-15% lower than serum/plasma values. (CLIA ID [id number]) Performed By: #### BGLU #### [facility] [address] [place] [address] GLUCOSE,BEDSIDE Collected: 11/09/2018 Status: F Source: [facility] 5:12 PM SYSTEM REPOSITORY TYPE CODE TESTS RESULT OUT OF RANGE REFERENCE UNITS LAB BGLU 70-100 mg/dL Normal 71 Glucose,Beds kenneth Result Comment: Test performed by glucose meter. Results may be 10%-15% lower than serum/plasma values. (CLIA ID [id number]) Performed By: #### BGLU #### [facility] [place] [address] GLUCOSE,BEDSIDE Collected: 11/09/2018 Status: F Source: [facility] 11:06 AM SYSTEM REPOSITORY TYPE CODE TESTS RESULT OUT OF RANGE REFERENCE UNITS LAB BGLU 70-100 mg/dL High 127 Glucose,Beds kenneth Result Comment: Test performed by glucose meter. Results may be 10%-15% lower than serum/plasma values. (CLIA ID [id number]) Performed By: #### BGLU #### [facility] [address] [place] [phone] GLUCOSE,BEDSIDE Collected: 11/09/2018 Status: F Source: [facility] 8:06 AM SYSTEM REPOSITORY TYPE CODE TESTS RESULT OUT OF RANGE REFERENCE UNITS LAB BGLU 70-100 mg/dL Normal 91 Glucose,Beds kenneth Result Comment: Test performed by glucose meter. Results may be 10%-15% lower than serum/plasma values. (CLIA ID [id number]) Performed By: #### BGLU #### [facility] [address] [place] [id number] HEMOGRAM W/ AUTODIFF Collected: 11/09/2018 Status: F Source: [facility] 2:10 AM SYSTEM REPOSITORY TYPE CODE TESTS RESULT OUT OF REFERENCE UNITS RANGE LAB IWBC 3.6-10.7 10*3/uL WBC Normal 6.6 LAB RBC 3.80-5.20 10*6/uL RBC Normal 3.97 LAB HGB 11.7-16.0 g/dL Hemoglobin Normal 12.9 LAB HCT 35.0-47.0 % Hematocrit Normal 39.1 LAB MCV 79.0-98.0 fL MCV High 98.5 LAB MCH 26.0-34.0 pg MCH Normal 32.4 LAB MCHC 32.0-36.0 % MCHC Normal 32.9 LAB RDW 11.5-14.5 % RDW High 15.9 LAB PLT 140-440 10*3/uL Platelet Normal 155 LAB MPV 7.4-10.4 fL MPV Normal 7.9 LAB GRAN% 40.0-80.0 % Granulocytes Normal 69.6 LAB LYMP% 20.0-40.0 % Low Lymphocytes 12.4 LAB MONO% 2.0-10.0 % Monocytes High 12.1 LAB EOS% 1.0-6.0 % Eosinophils Normal 4.4 LAB BAS% 0.0-2.0 % Basophils Normal 1.5 LAB ANC 1.8-7.0 10*3/uL Abs Normal Neutrophile Cnt 4.6 LAB ALC 1.0-4.3 10*3/uL Low Abs Lymph Cnt 0.8 LAB AMC 0.0-0.8 10*3/uL Abs Monocyte Normal Cnt 0.8 LAB AEC 0.0-0.5 10*3/uL Abs Eosin Cnt Normal 0.3 LAB ABC 0.0-0.2 10*3/uL Abs Baso Cnt Normal 0.1 Performed By: #### HEMPRITI BMP3 #### [facility] [address] [place] [phone] BASIC METABOLIC PANEL Collected: 11/09/2018 Status: F Source: [facility] 2:10 AM SYSTEM REPOSITORY TYPE CODE TESTS RESULT OUT OF RANGE REFERENCE UNITS LAB NA3 135-145 mmol/L Sodium Normal 142 LAB K3 3.5-5.1 mmol/L Normal Potassium 4.4 LAB CL3 98-107 mmol/L Chloride Normal 105 LAB CO23 22-30 mmol/L Carbon Normal Dioxide 26 LAB ANIN3 NA Anion Gap 11 LAB GLUC3 70-100 mg/dL High Glucose 112 LAB BUN3 7-20 mg/dL Urea Normal Nitrogen 20 LAB CRET3 0.52-1.25 mg/dL High Creatinine 5.27 LAB GF3BR >60 mL/min eGFR 9.6 LAB GF3WR >60 mL/min eGFR OTHER 7.9 Result Comment: Source- MDRD equation with creatinine calibration to IDMS(NKDEP) eGFR not recommended for drug dose adjustment LAB CA3 8.4-10.4 mg/dL Normal Calcium 8.7 Performed By: #### HEMDF, BMP3 #### [facility] [address] [place] [address] GLUCOSE,BEDSIDE Collected: 11/08/2018 Status: F Source: [facility] 8:46 PM SYSTEM REPOSITORY TYPE CODE TESTS RESULT OUT OF RANGE REFERENCE UNITS LAB BGLU 70-100 mg/dL High 209 Glucose,Beds kenneth Result Comment: Test performed by glucose meter. Results may be 10%-15% lower than serum/plasma values. (CLIA ID [id number]) Performed By: #### BGLU #### [facility] [address] [place] [address] GLUCOSE,BEDSIDE Collected: 11/08/2018 Status: F Source: [facility] 5:09 PM SYSTEM REPOSITORY TYPE CODE TESTS RESULT OUT OF RANGE REFERENCE UNITS LAB BGLU 70-100 mg/dL High 102 Glucose,Beds kenneth Result Comment: Test performed by glucose meter. Results may be 10%-15% lower than serum/plasma values. (CLIA ID [id number]) Performed By: #### BGLU #### [facility] [address] [place] [address] GLUCOSE,BEDSIDE Collected: 11/08/2018 Status: F Source: [facility] 11:44 AM SYSTEM REPOSITORY TYPE CODE TESTS RESULT OUT OF RANGE REFERENCE UNITS LAB BGLU 70-100 mg/dL High 177 Glucose,Beds kenneth Result Comment: Test performed by glucose meter. Results may be 10%-15% lower than serum/plasma values. (CLIA ID [id number]) Performed By: #### BGLU #### [facility] [place] [address] RF SWALLOWING FUNCTION Observed: 11/08/2018 Status: F Source: [facility] W/ VIDEO 11:17 AM SYSTEM REPOSITORY Patient Name: LUZ BACA Fluoroscopy Exam Date/Time 11/08/2018 09:16:22 EST Exam RF Swallowing Function w/ Video Ordering Physician Magdalene WEN, NORAH Accession Number [id number] [facility] Codes 43225 () Reason For Exam dysphagia Report MODIFIED BARIUM SWALLOW (COOKIE SWALLOW) CLINICAL INDICATION: Dysphagia. COMPARISON: 11/06/2018. FLUOROSCOPY TIME: 2.10 minutes. 16 fluoroscopic loop runs were obtained. TECHNIQUE: The procedure was performed in conjunction with speech therapy. Barium mixtures of various consistencies were given under fluoroscopy with the patient in the sitting lateral position. FINDINGS: Preparatory phase is unremarkable. Oral phase shows increased oral residuals. There spillage to the vallecula and piriform sinuses. Pharyngeal phase shows trace residuals in the valleculae. There is delay in swallow and reduced epiglottic deflection. There is coating of the back of the epiglottis. There is silent vocal cord penetration and airway aspiration with a single bolus of lemon ice. IMPRESSION: Silent vocal cord penetration airway aspiration with single bolus of lemon ice. Please refer to the speech pathologist's report for additional comments and recommendations. Report Dictated on Final Dictated: 11/08/2018 10:48 am Dictating Physician: MD HERNÁNDEZ DIANE Signed Date and Time: 11/08/2018 1:19 pm Signed by: MD HERNÁNDEZ DIANE Transcribed Date and Time: 11/08/2018 11:17 GLUCOSE,BEDSIDE Collected: 11/08/2018 Status: F Source: [facility] 7:42 AM SYSTEM REPOSITORY TYPE CODE TESTS RESULT OUT OF RANGE REFERENCE UNITS LAB BGLU 70-100 mg/dL High 155 Glucose,Beds kenneth Result Comment: Test performed by glucose meter. Results may be 10%-15% lower than serum/plasma values. (CLIA ID [id number]) Performed By: #### BGLU #### [facility] [address] [place] [address] GLUCOSE,BEDSIDE Collected: 11/07/2018 Status: F Source: [facility] 8:21 PM SYSTEM REPOSITORY TYPE CODE TESTS RESULT OUT OF RANGE REFERENCE UNITS LAB BGLU 70-100 mg/dL High 130 Glucose,Beds kenneth Result Comment: Test performed by glucose meter. Results may be 10%-15% lower than serum/plasma values. (CLIA ID [id number]) Performed By: #### BGLU #### [facility] [address] [place] [address] GLUCOSE,BEDSIDE Collected: 11/07/2018 Status: F Source: [facility] 5:04 PM SYSTEM REPOSITORY TYPE CODE TESTS RESULT OUT OF RANGE REFERENCE UNITS LAB BGLU 70-100 mg/dL Normal 83 Glucose,Beds kenneth Result Comment: Test performed by glucose meter. Results may be 10%-15% lower than serum/plasma values. (CLIA ID [id number]) Performed By: #### BGLU #### [facility] [address] [place] [address] GLUCOSE,BEDSIDE Collected: 11/07/2018 Status: F Source: [facility] 12:20 PM SYSTEM REPOSITORY TYPE CODE TESTS RESULT OUT OF RANGE REFERENCE UNITS LAB BGLU 70-100 mg/dL High 171 Glucose,Beds kenneth Result Comment: Test performed by glucose meter. Results may be 10%-15% lower than serum/plasma values. (CLIA ID [id number]) Performed By: #### BGLU #### [facility] [address] [place] [address] ECHO COMPLETE W/WO Observed: 11/07/2018 Status: F Source: [facility] 9:43 AM SYSTEM REPOSITORY Patient Name: LUZ BACA Ultrasound Exam Date/Time 11/07/2018 10:35:07 EST Exam Echo Complete w/wo Contrast Ordering Physician AILYN PHOENIX ALLISON Accession Number [id number] Reason For Exam left sided weakness; hx of afib; pt has defib.pacemaker Report TRANSTHORACIC ECHOCARDIOGRAM PATIENT: Luz Baca STUDY DATE: 11/07/2018 : 1940 AGE: 78 HT/WT: 172.7 cm (68 100.2 kg (220.5 in) lb) GENDER: F BP: 143 / 61 LOCATION: [facility] PATIENT Inpatient [facility] STATUS: *ORDERING PHYSICIAN: * Tresa Phoenix *READING PHYSICIAN: * Darlene Correa *BUNG DROPPER: * Ata Urbina [facility] --- INDICATIONS: (Left sided weakness; hx of a-fib; pt. has defib. pacemaker). --- CONCLUSIONS SUMMARY: 1. Left ventricle: The cavity size is normal. Wall thickness is mildly increased. Systolic function is moderately decreased by the biplane method of disks. The estimated ejection fraction is 41%. Moderate diffuse hypokinesis with regional variations. Doppler parameters are consistent with restrictive physiology, indicative of decreased left ventricular diastolic compliance and/or increased left atrial pressure. 2. Right ventricle: The cavity size is moderately dilated. Pacer wire noted in the right ventricle. Systolic function is moderately decreased. 3. Ventricular septum: Septal motion shows dyssynergy. 4. Left atrium: The atrium is severely dilated. 5. Right atrium: The atrium is moderately dilated. Pacer wire noted in right atrium. 6. Mitral valve: There is mild, 1+ regurgitation. 7. Tricuspid valve: There is severe, 4+ regurgitation. 8. Pulmonary arteries: Systolic pressure is moderately increased, estimated to be 49 mm Hg. 9. Hepatic veins: The flow pattern shows systolic flow reversal, suggestive of severe tricuspid regurgitation. --- STUDY DATA: Complete transthoracic echocardiogram. Procedure: Image quality was fair. The study was technically limited due to poor acoustic window availability, restricted patient mobility, body habitus, small rib spaces, off axis, arrhythmia, and patient unable to be in left lateral position, so test was done supine. Intravenous imaging enhancement (Definity) was administered to opacify the chamber. Definity lot #: [id number]. M-mode, complete 2D, complete spectral Doppler, and color flow Doppler images were acquired and archived for permanent storage and are available for subsequent review. Study status: Routine. Patient status: Inpatient. --- FINDINGS LEFT VENTRICLE: The cavity size is normal. Wall thickness is mildly increased. Systolic function is moderately decreased by the biplane method of disks. The estimated ejection fraction is 41%. Moderate diffuse hypokinesis with regional variations. Doppler parameters are consistent with restrictive physiology, indicative of decreased left ventricular diastolic compliance and/or increased left atrial pressure. RIGHT VENTRICLE: The cavity size is moderately dilated. Pacer wire noted in the right ventricle. Systolic function is moderately decreased. Right ventricular systolic pressure is within the normal range. VENTRICULAR SEPTUM: Septal motion shows dyssynergy. There is no evidence of a ventricular septal defect. LEFT ATRIUM: The atrium is severely dilated. RIGHT ATRIUM: The atrium is moderately dilated. Pacer wire noted in right atrium. ATRIAL SEPTUM: Color Doppler shows no evidence of shunt. MITRAL VALVE: Doppler: There is mild, 1+ regurgitation. Valve area by pressure half-time: 2.5 cm2. Valve area by continuity equation (using LVOT flow): 1.6 cm2. Mean gradient (D): 2 mm Hg. Peak gradient (D): 9 mm Hg. AORTIC VALVE: Structurally normal valve. Trileaflet. Doppler: There is no significant regurgitation. Peak gradient (S): 6 mm Hg. Peak velocity (S): 1.2 m/sec. TRICUSPID VALVE: Not well visualized. Doppler: There is severe, 4+ regurgitation. PULMONIC VALVE: Not well visualized. Doppler: There is trivial, less than 1+ regurgitation. AORTA: The aorta is normal. PULMONARY ARTERY: Systolic pressure is moderately increased, estimated to be 49 mm Hg. Main pulmonary artery: Normal. PERICARDIUM: There is no pericardial effusion. SYSTEMIC VEINS: Inferior vena cava: The vessel is dilated. The IVC collapses by greater than 50% with inspiration. Hepatic veins: The flow pattern shows systolic flow reversal, suggestive of severe tricuspid regurgitation. --- Measurements Left ventricle Value Reference LV ID, ED 5.0 cm 3.9 - 5.3 LV ID, ES 3.8 cm --------- LV PW thickness, ED (H) 1.2 cm 0.6 - 0.9 LV end-diastolic volume, 1-p A4C 92 ml 56 - 104 LV end-systolic volume, 1-p A4C (H) 54 ml 19 - 49 LV end-diastolic volume, 2-p 90 ml 56 - 104 LV end-systolic volume, 2-p (H) 53 ml 19 - 49 LV ejection fraction, 2-p (L) 41 % >=55 LV E/e', lateral 18.2 --------- LV E/e', medial 23 --------- LV E/e', average 20.3 --------- Ventricular septum Value Reference IVS thickness, ED (H) 1.2 cm 0.6 - 0.9 LVOT Value Reference LVOT ID, A-P 1.8 cm --------- LVOT mean velocity, S 0.6 m/sec --------- LVOT VTI, S 19.2 cm --------- LVOT peak gradient, S 3 mm Hg --------- Stroke volume (SV), LVOT DP 51 ml --------- Stroke index (SV/bsa), LVOT DP 23 ml/m2 --------- Aortic valve Value Reference Aortic valve peak velocity, S 1.2 m/sec --------- Aortic peak gradient, S 6 mm Hg --------- Aorta Value Reference Aortic root ID 2.9 cm <4.3 Aortic root ID, STJ, ED 2.5 cm --------- Ascending aorta ID, A-P 3.1 cm --------- Ascending aorta ID, A-P, S 3.1 cm --------- Left atrium Value Reference LA volume/bsa, ES, 2-p 48 ml/m2 --------- Mitral valve Value Reference Mitral E-wave peak velocity 1.5 m/sec --------- Mitral A-wave peak velocity 0.3 m/sec --------- Mitral deceleration time 263 ms --------- Mitral pressure half-time 90 ms --------- Mitral mean gradient, D 2 mm Hg --------- Mitral peak gradient, D 9 mm Hg --------- Mitral E/A ratio, peak 4.3 --------- Mitral valve area, PHT, DP 2.5 cm2 --------- Mitral valve area, LVOT continuity 1.6 cm2 --------- Pulmonary arteries Value Reference PA pressure, S, DP 44 mm Hg --------- Tricuspid valve Value Reference Tricuspid regurg peak velocity 3.2 m/sec --------- Tricuspid peak RV-RA gradient 41 mm Hg --------- Right atrium Value Reference RA area, ES, A4C (H) 27 cm2 10 - 18 Systemic veins Value Reference Estimated RAP 3 mm Hg --------- Right ventricle Value Reference RV ID, minor axis, ED, A4C base 3.7 cm 2.4 - 4.2 RV ID, minor axis, ED, A4C mid (H) 3.6 cm 2.0 - 3.5 TAPSE 1.5 cm --------- RV pressure, S, DP 44 mm Hg --------- RV s', lateral, S 0.07 m/sec --------- Pulmonic valve Value Reference Pulmonic regurg gradient, ED 5 mm Hg --------- Legend: (L) and (H) isabela values outside specified reference range. Electronically signed by Darlene Correa 11/07/2018 11:47 Final Dictated: 11/07/2018 11:47 am Dictating Physician: MD CORREA GABRIELA Signed Date and Time: 11/07/2018 11:47 am Signed by: MD CORREA GABRIELA 12 LEAD ELECTROCARDIOGRAM Observed: 11/07/2018 Status: F Source: [place] 9:42 AM [facility] REPOSITORY [facility] Cardiovascular Services [address] [place] [address] 12 Lead EKG 11/04/18 1052 MR#: [id number] Acct: [id number] Name: LUZ BACA Rep #: [id number] : 1940 78 From: Parker Cosby MD Attending Dr: Status: DEP ER Ordering Dr: Marvel Cook DO Date: 11/04/18 Location: ED Sex: F C Admitted: Test Reason : STROKE Blood Pressure : / mmHG Vent. Rate : 063 BPM Atrial Rate : 057 BPM P-R Int : 000 ms QRS Dur : 220 ms QT Int : 544 ms P-R-T Axes : 000 -78 099 degrees QTc Int : 556 ms Ventricular-paced rhythm Abnormal ECG Confirmed by PARKER COSBY MD ([id number]), continuity editor NELLY ALEXANDER ([id number]) on 11/07/2018 9:42:36 AM Referred By: KOJO Confirmed By:PARKER COSBY MD 11/07/18 0942 Date Parker Cosby MD CC: Mook Kamara MD; Marvel Cook DO Signed GLUCOSE,BEDSIDE Collected: 11/07/2018 Status: F Source: [facility] 8:01 AM SYSTEM REPOSITORY TYPE CODE TESTS RESULT OUT OF RANGE REFERENCE UNITS LAB BGLU 70-100 mg/dL High 164 Glucose,Beds kenneth Result Comment: Test performed by glucose meter. Results may be 10%-15% lower than serum/plasma values. (CLIA ID [id number]) Performed By: #### BGLU #### [facility] [address] [place] [id number] GLUCOSE,BEDSIDE Collected: 11/06/2018 Status: F Source: [facility] 10:45 PM SYSTEM REPOSITORY TYPE CODE TESTS RESULT OUT OF RANGE REFERENCE UNITS LAB BGLU 70-100 mg/dL High 156 Glucose,Beds kenneth Result Comment: Test performed by glucose meter. Results may be 10%-15% lower than serum/plasma values. (CLIA ID [id number]) Performed By: #### BGLU #### [facility] [address] [place] [address] GLUCOSE,BEDSIDE Collected: 11/06/2018 Status: F Source: [facility] 6:06 PM SYSTEM REPOSITORY TYPE CODE TESTS RESULT OUT OF RANGE REFERENCE UNITS LAB BGLU 70-100 mg/dL High 132 Glucose,Beds kenneth Result Comment: Test performed by glucose meter. Results may be 10%-15% lower than serum/plasma values. (CLIA ID [id number]) Performed By: #### BGLU #### [facility] [address] [place] [address] GLUCOSE,BEDSIDE Collected: 11/06/2018 Status: F Source: [facility] 2:50 PM SYSTEM REPOSITORY TYPE CODE TESTS RESULT OUT OF RANGE REFERENCE UNITS LAB BGLU 70-100 mg/dL High 162 Glucose,Beds kenneth Result Comment: Test performed by glucose meter. Results may be 10%-15% lower than serum/plasma values. (CLIA ID [id number]) Performed By: #### BGLU #### [facility] [place] [address] RF SWALLOWING FUNCTION Observed: 11/06/2018 Status: F Source: [facility] W/ VIDEO 11:39 AM SYSTEM REPOSITORY Patient Name: LUZ BACA Fluoroscopy Exam Date/Time 11/06/2018 11:31:57 EST Exam RF Swallowing Function w/ Video Ordering Physician NIRU BORJAS Accession Number [id number] [facility] Codes 39395 () Reason For Exam dysphagia, stroke. Patient reports trouble swallowing. Cough noted by nursing. Report CLINICAL INDICATION: Dysphagia. Fluoroscopy time: 1.7 minutes with one stored fluoroscopic run The exam was performed under fluoroscopy with video recording. Barium mixtures of various consistencies was used with the patient in the sitting lateral position. FINDINGS: With thin liquids the patient lost control of the oral bolus and aspirated before initiating the swallow. The patient had a delayed spontaneous cough after aspiration. Mild oral residuals are noted. With pudding consistency the patient had poor oral bolus formation and delayed initiation of pharyngeal swallowing. There was penetration primarily from residuals and delayed additional aspiration after the swallow. The study was terminated at this point. IMPRESSION: Abnormal findings as described above. Please refer to the speech pathologist's report for additional details and recommendations. Report Dictated on Final Dictated: 11/06/2018 11:39 am Dictating Physician: MD HERNÁNDEZ DIANE Signed Date and Time: 11/06/2018 11:40 am Signed by: MD HERNÁNDEZ DIANE Transcribed Date and Time: 11/06/2018 11:39 MILITARY NURSE MODIFIED BARIUM Observed: 11/06/2018 Status: F Source: [facility] SWALLOW STUDY 11:02 AM SYSTEM REPOSITORY Patient Name: LUZ BACA Fluoroscopy Exam Date/Time 11/06/2018 11:32:32 EST Exam MILITARY NURSE Modified Barium Swallow Study Ordering Physician NIRU BORJAS Accession Number [id number] Reason For Exam dysphagia Report Date: 11/06/2018 11:03 AM EST Onset Date: 11/04/2018 Diagnosis: Right hemisphere CVA, dysphagia Reason for Referral: [facility] completed yesterday morning with no swallowing difficulties noted. Per nursing notes, pt reported having trouble swallowing at breakfast yesterday and nursing is reporting pt coughing with PO, chest x-ray yesterday negative for infiltrates; discussed swallowing issues with pt prior to this test and pt reports banana bread not going down. PMHX: Type 2 diabetes, hypertension, hyperlipidemia, ESRD, COPD, CAD, A. fib Oxygen Requirement: 2L Current Diet: NPO Thickness of liquid: NPO Prior MBS date and results: N/A Textures tested: Puree (2 presentations of 1/2 tsp), Thin Liquid (tsp) Patient position: Seated/Lateral TEST RESULTS: Oral Phase: Pt with severe decreased bolus control of thin liquids resulting in severe aspiration before the swallow. Pt with very poor AP transfer of puree bolus with numerous cues needed to propel bolus (more than 20 seconds to propel bolus). Pt did have much better control with the puree and spillage did not occur before the initial swallow. Pt with moderate oral residues after the swallow. Pt with very delayed (difficult to initiate) repeat swallow to attempt to clear. Even after repeat swallow there was a considerable amount of residue. Pharyngeal Phase: Pt with aspiration before the swallow with thin (d/t spillage) and aspiration after the swallow with puree (d/t oral residue).Pt with decreased tongue base retraction which results in moderate tongue base residues, but only trace residue remains in valleculae. Cough x1 with initial aspiration only and then silent aspiration for remainder of test. Pt unable to clear aspiration. Hyolaryngeal excursion appeared wfl and only trace residues remained in pyriform sinuses. Pharyngeal Weakness: Weak Tongue Base Esophageal Phase: Esophageal dysmotility noted General Impressions: Severe oral and pharyngeal dysphagia. Diet Recommendations / Strategies: NPO Recommended Consultations / Follow Up: Dysphagia therapy Goals: Patient will improve swallowing function through oropharyngeal strengthening exercises (oral motor with focus on lingual, tongue base retraction). G-Code: CN Radiologist: Dr. Dilam Hernández MD Report Dictated on Final Dictated: 11/06/2018 11:02 am Dictating Physician: IDANIA DEWEY, GALO/CRISTIANE HAMMOND Signed Date and Time: 11/06/2018 11:43 am Signed by: IDANIA DEWEY, GALO/CRISTIANE HAMMOND Transcribed Date and Time: 11/06/2018 11:02 GLUCOSE,BEDSIDE Collected: 11/06/2018 Status: F Source: [facility] 9:08 AM SYSTEM REPOSITORY TYPE CODE TESTS RESULT OUT OF RANGE REFERENCE UNITS LAB BGLU 70-100 mg/dL Normal 94 Glucose,Beds kenneth Result Comment: Test performed by glucose meter. Results may be 10%-15% lower than serum/plasma values. (CLIA ID [id number]) Performed By: #### BGLU #### [facility] [address] [place] [phone] CR CHEST 1 VIEW Observed: 11/06/2018 Status: F Source: [facility] 2:53 AM SYSTEM REPOSITORY Patient Name: LUZ BACA Diagnostic Radiology Exam Date/Time 11/06/2018 00:16:26 EST Exam CR Chest 1 View Frontal Ordering Physician DO HUETRA TAHIRAH A Accession Number [id number] CPT4 Codes 55672 () Reason For Exam Hypoxia Report PORTABLE CHEST CLINICAL INDICATION: Hypoxia. COMPARISON: 04/20/2018. TECHNIQUE: A single frontal view of thorax was obtained and reviewed. IMPRESSION: 1. Lines/ tubes/ devices: Sternotomy wires and mediastinal clips are identified. Right IJ dual-lumen catheter tip overlies distal SVC. 2. Lungs and Pleura: Pulmonary vasculature is sharp. No infiltrate or mass. Tiny left pleural effusion or thickening blunts the left costophrenic angle. No pneumothorax is evident. 3. Heart and mediastinum: Moderate cardiomegaly is stable. 4. Bones: Thoracic degenerative spondylosis. Report Dictated on Workstation: [id number] [facility] Final Dictated: 11/06/2018 2:53 am Dictating Physician: MARA GOMEZ DO, I Signed Date and Time: 11/06/2018 2:55 am Signed by: MARA GOMEZ DO, I Transcribed Date and Time: 11/06/2018 2:53 TROPONIN I Collected: 11/05/2018 Status: F Source: [facility] 11:48 PM SYSTEM REPOSITORY TYPE CODE TESTS RESULT OUT OF REFERENCE UNITS RANGE LAB TROP4 0.000-0.034 ng/mL High Troponin I 0.037 Result Comment: 0.046 - 0.400 = Indeterminate > 0.400 = Consider Myocardial Injury Performed By: #### TROPN #### [facility] [address] [place] [address] ARTERIAL BLOOD GASES Collected: 11/05/2018 Status: F Source: [facility] 11:36 PM SYSTEM REPOSITORY TYPE CODE TESTS RESULT OUT OF RANGE REFERENCE UNITS LAB HGBG ScreenOnly g/dL Hemoglobin 13.8 LAB PHG 7.350-7.450 NA pH Normal 7.396 LAB PCO2 35.0-45.0 mm[Hg] High pCO2 49.6 LAB PO2 80.0-100.0 mm[Hg] High pO2 106.3 LAB HCO3 21.0-25.0 mmol/L High HCO3 29.8 LAB TCO2 23.0-27.0 mmol/L High TCO2 31.3 LAB SBE -3.0-3.0 mmol/L High Std Base Excess 3.9 LAB O2SAT 95.0-100.0 % O2 Normal Saturation 97.8 LAB FIO2 NA FIO2 No data Performed By: #### ABG #### [facility] [address] [place] [address] GLUCOSE,BEDSIDE Collected: 11/05/2018 Status: F Source: [facility] 11:09 PM SYSTEM REPOSITORY TYPE CODE TESTS RESULT OUT OF RANGE REFERENCE UNITS LAB BGLU 70-100 mg/dL High 141 Glucose,Beds kenneth Result Comment: Test performed by glucose meter. Results may be 10%-15% lower than serum/plasma values. (CLIA ID [id number]) Performed By: #### BGLU #### [facility] [place] [address] GLUCOSE,BEDSIDE Collected: 11/05/2018 Status: F Source: [facility] 9:45 PM SYSTEM REPOSITORY TYPE CODE TESTS RESULT OUT OF RANGE REFERENCE UNITS LAB BGLU 70-100 mg/dL High 137 Glucose,Beds kenneth Result Comment: Test performed by glucose meter. Results may be 10%-15% lower than serum/plasma values. (CLIA ID [id number]) Performed By: #### BGLU #### [facility] [address] [place] [address] GLUCOSE,BEDSIDE Collected: 11/05/2018 Status: F Source: [facility] 9:04 PM SYSTEM REPOSITORY TYPE CODE TESTS RESULT OUT OF RANGE REFERENCE UNITS LAB BGLU 70-100 mg/dL Low 62 Glucose,Beds kenneth Result Comment: Test performed by glucose meter. Results may be 10%-15% lower than serum/plasma values. (CLIA ID [id number]) Performed By: #### BGLU #### [facility] [address] [place] [phone] HEAD OR BRAIN W/O Observed: 11/05/2018 Status: F Source: [facility] 3:32 PM SYSTEM REPOSITORY Patient Name: LUZ BACA CT Exam Date/Time 11/05/2018 15:09:[address] Head or Brain w/o Contrast Ordering Physician AILYN ORR, MIGUELINA Zavala Accession Number [id number] CPT4 Codes 76613 () Reason For Exam stroke Report CT HEAD: CLINICAL INDICATION: Stroke TECHNIQUE: Transaxial CT sequence performed through the head with 3 mm reconstruction. Sagittal and Coronal reconstruction images included. COMPARISON: None FINDINGS: Ventricles and sulci are prominent, consistent with age-related cerebral volume loss. There are scattered foci of hypoattenuation in the periventricular and subcortical white matter, which is nonspecific, but commonly seen with chronic small vessel ischemia. No extra-axial collection. No acute intracranial hemorrhage. No mass effect or midline shift. No CT evidence of an acute large territorial infarction. Vascular calcifications noted at the skull base. Imaged paranasal sinuses and mastoid air cells are well aerated. There is hyperostosis frontalis interna. IMPRESSION: 1. No acute intracranial hemorrhage or mass effect. 2. No CT evidence of acute large territorial infarction. Report Dictated on Final Dictated: 11/05/2018 3:32 pm Dictating Physician: MD HORNE KEVIN Signed Date and Time: 11/05/2018 3:33 pm Signed by: MD HORNE KEVIN Transcribed Date and Time: 11/05/2018 3:32 GLUCOSE,BEDSIDE Collected: 11/05/2018 Status: F Source: [facility] 12:32 PM SYSTEM REPOSITORY TYPE CODE TESTS RESULT OUT OF RANGE REFERENCE UNITS LAB BGLU 70-100 mg/dL High 136 Glucose,Beds kenneth Result Comment: Test performed by glucose meter. Results may be 10%-15% lower than serum/plasma values. (CLIA ID [id number]) Performed By: #### BGLU #### [facility] [address] [place] [phone] GLUCOSE,BEDSIDE Collected: 11/05/2018 Status: F Source: [facility] 12:04 PM SYSTEM REPOSITORY TYPE CODE TESTS RESULT OUT OF RANGE REFERENCE UNITS LAB BGLU 70-100 mg/dL High 133 Glucose,Beds kenneth Result Comment: Test performed by glucose meter. Results may be 10%-15% lower than serum/plasma values. (CLIA ID [id number]) Performed By: #### BGLU #### [facility] [address] [place] [address] HEP B SURFACE AG Collected: 11/05/2018 Status: F Source: [facility] 11:10 AM SYSTEM REPOSITORY TYPE CODE TESTS RESULT OUT OF RANGE REFERENCE UNITS LAB HBSAG Not-Detected NA Normal Hep B Surface NOT DETECTED Ag Performed By: #### HBSAG #### [facility] [address] [place] [address] VL CAROTID DUPLEX Observed: 11/05/2018 Status: F Source: [facility] ULTRASOUND COMPLETE 8:59 AM SYSTEM REPOSITORY Patient Name: LUZ BACA Ultrasound Exam Date/Time 11/05/2018 09:28:55 EST Exam VL Carotid Duplex Ultrasound Complete Ordering Physician AILYN PHOENIX ALLISON Accession Number [id number] CPT4 Codes 27771 () Reason For Exam left sided weakness Report [facility] --- Carotid Duplex Report Patient Name: Luz Baca : 1940 Study Date: 11/05/2018 (78yrs) Age: 78 Account: [id number] Gender: F Loc: 1437 BP: Ordering: Tresa Phoenix Technologist: Ordering Physician: Tresa Phoenix Supervisor Tower: Chantelle Carrasco RVT Interpreting Physician: Deisy Casanova MD --- Location: [facility] --- INDICATIONS: Unilateral weakness. --- CONCLUSIONS 1. Study shows moderate plaque of the right carotid system with less than 50% stenosis by velocity criteria involving the right internal carotid artery. Study shows diffuse irregular atherosclerosis of the left carotid system with 50-69% stenosis by velocity criteria involving the left internal carotid artery. --- IMPRESSIONS: - Study shows moderate plaque of the right carotid system with less than 50% stenosis by velocity criteria involving the right internal carotid artery. - Study shows diffuse irregular atherosclerosis of the left carotid system with 50-69% stenosis by velocity criteria involving the left internal carotid artery. --- STUDY DATA: Complete carotid duplex study. Birthdate: Patient birthdate: 1940. Age: Patient is 78 yr old. Sex: Gender: female. Ethnicity: Ethnicity: white. Height: Height: 0 cm. Weight: Weight: 0 kg. Doppler flow study including spectral analysis, color and hernandez scale imaging. Patient status: Inpatient. Procedure: A vascular evaluation was performed. The images were obtained using a [facility] E9 vascular ultrasound machine. The study was technically limited due to body habitus, movement, and immobility. --- Arterial flow: + + +---------+--------+ + --+ !Location !V sys !V ed !Stenosis!Plaque !Flow analysis ! + + +---------+--------+ + --+ !Right ICA - !101.6 cm/s!17.6 cm/s!< 50% !Irregular and ! --! !proximal ! ! ! !calcified ! ! + + +---------+--------+ + --+ !Right ICA - mid!79 cm/s !0 cm/s !--------! ! --! + + +---------+--------+ + --+ !Right ICA - !103.2 cm/s!22.5 cm/s!--------! ! --! !distal ! ! ! ! ! ! + + +---------+--------+ + --+ !Right CCA - !34.9 cm/s !4.8 cm/s !--------! ! --! !proximal ! ! ! ! ! ! + + +---------+--------+ + --+ !Right CCA - mid!62.5 cm/s !11.6 cm/s!--------! ! --! + + +---------+--------+ + --+ !Right ECA !124.2 cm/s!6.3 cm/s !--------! ! --! + + +---------+--------+ + --+ !Right vertebral!61.2 cm/s !16 cm/s !--------! !Antegrade flow! + + +---------+--------+ + --+ !Left ICA - !155.4 cm/s!36.9 cm/s!50-69% !Irregular and ! --! !proximal ! ! ! !calcified ! ! + + +---------+--------+ + --+ !Left ICA - mid !72.3 cm/s !11.5 cm/s!--------! ! --! + + +---------+--------+ + --+ !Left ICA - !87.9 cm/s !21.9 cm/s!--------! ! --! !distal ! ! ! ! ! ! + + +---------+--------+ + --+ !Left CCA - !36.1 cm/s !11.5 cm/s!--------! ! --! !proximal ! ! ! ! ! ! + + +---------+--------+ + --+ !Left CCA - mid !52.3 cm/s !11.3 cm/s!--------! ! --! + + +---------+--------+ + --+ !Left ECA !104.8 cm/s!7.9 cm/s !--------! ! --! + + +---------+--------+ + --+ !Left vertebral !54.2 cm/s !15.4 cm/s!--------! !Antegrade flow! + + +---------+--------+ + --+ Velocity ratios: + + + + + + ! !Right, V sys!Right, V ed!Left, V sys!Left, V ed! + + + + + + !Max ICA/Mid CCA!1.65 !1.93 !2.97 !3.28 ! + + + + + + Electronically signed by: Deisy Casanova MD [id number] Final Dictated: 11/05/2018 7:13 pm Dictating Physician: DEISY CASANOVA Signed Date and Time: 11/05/2018 11:54 am Signed by: DEISY CASANOVA GLUCOSE,BEDSIDE Collected: 11/05/2018 Status: F Source: [facility] 8:05 AM SYSTEM REPOSITORY TYPE CODE TESTS RESULT OUT OF RANGE REFERENCE UNITS LAB BGLU 70-100 mg/dL Normal 97 Glucose,Beds kenneth Result Comment: Test performed by glucose meter. Results may be 10%-15% lower than serum/plasma values. (CLIA ID [id number]) Performed By: #### BGLU #### [facility] [address] [place] [address] GLUCOSE,BEDSIDE Collected: 11/05/2018 Status: F Source: [facility] 7:27 AM SYSTEM REPOSITORY TYPE CODE TESTS RESULT OUT OF RANGE REFERENCE UNITS LAB BGLU 70-100 mg/dL Low 61 Glucose,Beds kenneth Result Comment: Test performed by glucose meter. Results may be 10%-15% lower than serum/plasma values. (CLIA ID [id number]) Performed By: #### BGLU #### [facility] [address] [place] [address] HEMOGRAM Collected: 11/05/2018 Status: F Source: [facility] 3:59 AM SYSTEM REPOSITORY TYPE CODE TESTS RESULT OUT OF RANGE REFERENCE UNITS LAB IWBC 3.6-10.7 10*3/uL WBC Normal 5.7 LAB RBC 3.80-5.20 10*6/uL Low RBC 3.78 LAB HGB 11.7-16.0 g/dL Normal Hemoglobin 12.2 LAB HCT 35.0-47.0 % Normal Hematocrit 37.2 LAB MCV 79.0-98.0 fL High MCV 98.4 LAB MCH 26.0-34.0 pg MCH Normal 32.1 LAB MCHC 32.0-36.0 % MCHC Normal 32.7 LAB RDW 11.5-14.5 % High RDW 16.6 LAB PLT 140-440 10*3/uL Low Platelet 131 LAB MPV 7.4-10.4 fL MPV Normal 7.7 Performed By: #### HEMOG, HA1C2, LIPD2, TROPN #### [facility] [address] [place] [id number] HEMOGLOBIN A1C Collected: 11/05/2018 Status: F Source: [facility] 3:59 AM SYSTEM REPOSITORY TYPE CODE TESTS RESULT OUT OF RANGE REFERENCE UNITS LAB A1C2 4.0-5.7 % Normal Hemoglobin A1C 5.7 Result Comment: --HgbA1C levels may not be accurate in patients who have renal disease, received recent blood transfusions, are anemic, or who have dyshemoglobinemia. LAB EAG2 mg/dL Estimated Avg Glucose 117 Performed By: #### HEMOG, HA1C2, LIPD2, TROPN #### [facility] [address] [place] [address] LIPID PANEL Collected: 11/05/2018 Status: F Source: [facility] 3:58 AM SYSTEM REPOSITORY TYPE CODE TESTS RESULT OUT OF REFERENCE UNITS RANGE LAB 3CHOL < 200 mg/dL Cholesterol Normal 110 LAB 3TRIG <150 mg/dL Triglyceride Normal 73 LAB HDLC 40-60 mg/dL Low HDL Cholesterol 37 LAB LDL4 <100 mg/dL Low Density Normal Lipoprotein 58 LAB CHLHD NA Chol/HDL 3 Result Comment: Ref Range: < 3 Low Risk for CHD 3-6 Mod Risk for CHD > 6 High Risk for CHD Performed By: #### HEMOG, HA1C2, LIPD2, TROPN #### [facility] [address] [place] [address] TROPONIN I Collected: 11/05/2018 Status: F Source: [facility] 3:58 AM SYSTEM REPOSITORY TYPE CODE TESTS RESULT OUT OF REFERENCE UNITS RANGE LAB TROP4 0.000-0.034 ng/mL High Troponin I 0.035 Result Comment: 0.046 - 0.400 = Indeterminate > 0.400 = Consider Myocardial Injury Performed By: #### HEMOG, HA1C2, LIPD2, TROPN #### [facility] [address] [place] [address] TROPONIN I Collected: 11/04/2018 Status: F Source: [facility] 11:52 PM SYSTEM REPOSITORY TYPE CODE TESTS RESULT OUT OF REFERENCE UNITS RANGE LAB TROP4 0.000-0.034 ng/mL High Troponin I 0.037 Result Comment: 0.046 - 0.400 = Indeterminate > 0.400 = Consider Myocardial Injury Performed By: #### TROPN #### [facility] [address] GLUCOSE,BEDSIDE Collected: 11/04/2018 Status: F Source: [facility] 8:31 PM SYSTEM REPOSITORY TYPE CODE TESTS RESULT OUT OF RANGE REFERENCE UNITS LAB BGLU 70-100 mg/dL High 110 Glucose,Beds kenneth Result Comment: Test performed by glucose meter. Results may be 10%-15% lower than serum/plasma values. (CLIA ID [id number]) Performed By: #### BGLU #### [facility] [address] [address] TROPONIN I Collected: 11/04/2018 Status: F Source: [facility] 6:02 PM SYSTEM REPOSITORY TYPE CODE TESTS RESULT OUT OF RANGE REFERENCE UNITS LAB TROP4 0.000-0.034 ng/mL Normal Troponin I 0.033 Result Comment: Slightly hemolysed, interpret with caution. 0.046 - 0.400 = Indeterminate > 0.400 = Consider Myocardial Injury Performed By: #### TROPN #### [facility] [address] [address] GLUCOSE,BEDSIDE Collected: 11/04/2018 Status: F Source: [facility] 5:54 PM SYSTEM REPOSITORY TYPE CODE TESTS RESULT OUT OF RANGE REFERENCE UNITS LAB BGLU 70-100 mg/dL Normal 73 Glucose,Beds kenneth Result Comment: Test performed by glucose meter. Results may be 10%-15% lower than serum/plasma values. (CLIA ID [id number]) Performed By: #### BGLU #### [facility] [address] [address] EMERGENCY DEPARTMENT Observed: 11/04/2018 Status: F Source: [place] SUMMARY 1:37 PM [facility] REPOSITORY [facility] Medical Records Department [address] [place] [address] Emergency Department Summary 11/04/18 1333 MR#: [id number] Acct: [id number] Name: LUZ BACA Rep #: [id number] : 1940 78 From: Marvel Cook DO PCP: Mook Kamara MD Status: REG ER - ER Visit Summary Date of Service: 11/04/18 Chief Complaint: [Possible stroke] History of Present Illness: The patient is a 78 F [presents to the emergency department via EMS with concern for possible stroke. Patient apparently was at dialysis with her daughter and while waiting in the waiting room she started to drool and have right-sided facial droop. She did not had slurred speech as well as left arm weakness per her daughter. On arrival the emergency department patient just states that she does not feel good but denies any headache. She denies any weakness currently. She has never had a stroke before. Patient does have a history of atrial fibrillation as well as chronic kidney disease and hypertension. Patient had been on Eliquis until a couple of weeks ago when she was taken off to have a procedure done on her right arm fistula and it had not since been restarted.] Physical Examination: [HEENT-PERRLA, EOMI. Cranial nerves II through XII grossly intact. TMs clear. Mucous membranes moist. No adenopathy. Cardiovascular-regular rate and rhythm without murmur or ectopy Lungs-clear to auscultation, chest wall stable without crepitus or subcu emphysema Abdomen-normoactive bowel sounds, soft, nontender, no rebound or rigidity, no peritoneal signs. Neuro xklp-yyplvt-vpen and heel guthrie testing within normal limits, negative Romberg, negative pronator, fundi benign. NIH stroke scale initially was 0. There was no facial droop noted and no focal weakness. Extremities-intact 4, normal range of motion, normal pulses, atraumatic] Test Results: [CT scan of the brain without contrast obtained showed atrophy otherwise nothing acute. EKG obtained showed a paced rhythm with a ventricular rate of 63 bpm. CBC with differential showed a white of 8.9, hemoglobin 12.5, hematocrit 40, placed 134. Chemistries unremarkable. BUN 34 and creatinine 5.04. Troponin was 0.6. CT a of the neck showed high-grade stenosis of both internal carotid arteries at the origin. CTA of the brain was unremarkable. Chest x-ray showed some mild CHF.] Emergency Department Course and Treatment: [Case was discussed with neurology on-call Dr. Gary who asked that we transfer patient to tertiary care facility for vascular evaluation. Patient would prefer to go [facility].] Treatment Plan: [Transfer to [facility]. I discussed case with [facility] hospitalist who accepted transfer of patient] Disposition: [Transfer] Impression: [TIA Bilateral carotid stenosis] This note was generated with Psonar dictation software. It may contain incorrect words, spelling, and punctuation that were not noted in review of the chart prior to signing ED Disposition - Plan for ED Patient: Chief Complaint: Neuro S/Sx Referrals: Mook Kamara MD [Primary Care Provider] - What to do if you have Problems For any increased pain, shortness of breath, bleeding, nausea or vomiting, chest pain, or any unexpected problems, contact your Primary Care Provider. Call [facility] ([phone]) or report to the closest Emergency Room. Call 911 if necessary. 11/04/18 1337 <Electronically signed by Marvel Cook DO> Date aMrvel Cook DO Cosigner Signature (If Indicated): Date CC: Mook Kamara MD CTA HEAD W/WO Observed: 11/04/2018 Status: F Source: [facility] CONTRAST 11:02 AM [facility] REPOSITORY [facility] Imaging Services [address] [place] [address] CTA Head W/WO Contrast MR#: [id number] Acct: [id number] Name: LUZ BACA Rep #: [id number] : 1940 F 78 From: Antonio Pascual MD PCP: Mook Kamara MD Status: REG ER Study: CTA Head W/WO Contrast Date of Exam: 11/04/18 Exam# [id number] Ordering Dr: Marvel Cook DO STUDY: CTA OF THE BRAIN REASON FOR EXAM: Female, 78 years old. CVA. RADIATION DOSAGE (If Supplied By Facility): CTDIvol = ( 21.68 ) mGy, DLP = ( 625.62 ) mGycm TECHNIQUE: CT angiography was performed with a multi-detector CT scanner. Data acquisition was obtained from the skull base through the vertex following intravenous administration of 100 ml of 300. MIP images were reconstructed from the axial data set. Post-processing of the angiographic images was performed, with multiplanar reformation and 3D reconstruction. Individualized dose optimization techniques were used for this CT. COMPARISON: None. FINDINGS: Normal bilateral petrous carotid arteries. There is calcified plaque formation of the right cavernous carotid artery, without a cross-sectional luminal stenosis. There is calcified plaque formation of the left cavernous carotid artery, without a cross-sectional luminal stenosis. Normal right A1 segments of the anterior cerebral artery. Normal left A1 segments of the anterior cerebral artery. Normal intact anterior communicating artery (ACOM). Normal bilateral A2 segments of the anterior cerebral arteries. Normal right M1 and M2 segments of the middle cerebral arteries, with a normal M1 bifurcation. Normal left M1 and M2 segments of the middle cerebral arteries, with a normal M1 bifurcation. Normal right posterior communicating artery (PCOM). Normal left posterior communicating artery (PCOM). Normal bilateral vertebral arteries. Normal basilar artery with a normal basilar bifurcation. The visualized bilateral superior cerebellar (SCA) arteries are normal. Normal bilateral P1, P2 and visualized P3 segments of the posterior cerebral arteries. There is no demonstrated aneurysm of the [place] of Prabhakar. Cerebral atrophy. CT/CTA Head W/WO Contrast IMPRESSION: Normal [place] of [place] without a demonstrated aneurysm or hemodynamically significant stenosis. Electronically Signed: Antonio Pascual MD at 12:24 EST Tel [phone], Service support , CC: Mook Kamara MD; Marvel Cook DO Service Delivery Supervisor: Signed CTA NECK W/WO Observed: 11/04/2018 Status: F Source: [facility] CONTRAST 11:02 AM [facility] REPOSITORY [facility] Imaging Services [address] [place] [address] CTA Neck W/WO Contrast MR#: [id number] Acct: [id number] Name: LUZ BACA Rep #: [id number] : 1940 F 78 From: Antonio Pascual MD PCP: Mook Kamara MD Status: REG ER Study: CTA Neck W/WO Contrast Date of Exam: 11/04/18 Exam# [id number] Ordering Dr: Marvel Cook DO STUDY: CTA NECK WITH CONTRAST REASON FOR EXAM: Female, 78 years old. CVA. RADIATION DOSAGE (If Supplied By Facility): CTDIvol = ( 21.68 ) mGy, DLP = ( 625.62 ) mGycm TECHNIQUE: CT angiography with multi-detector data acquisition was performed from the aortic arch to the skull base following intravenous administration of 100ML ml of Isovue 300 contrast. MIP images were reconstructed from the axial data set. Post-processing of the angiographic images was performed, with multiplanar reformation and 3D reconstruction. Individualized dose optimization techniques were used for this CT. COMPARISON: None. FINDINGS: A right-sided double-J catheter is seen. Inhomogeneous enlargement of the anterior midportion of the left lobe of thyroid with focal calcification. AORTIC ARCH: There is atherosclerotic calcific plaque formation of the aortic arch and great vessels arising from the aortic arch, without a hemodynamically significant stenosis. There is a normal origin of the brachiocephalic, left common carotid, and left subclavian arteries. Atherosclerotic plaque formation at the origin of the left common carotid artery and left subclavian artery. RIGHT CAROTID ARTERIES: There is atherosclerotic plaque formation of the common carotid artery, but without a hemodynamically significant stenosis. There is moderate atherosclerotic plaque formation with moderate narrowing of the right carotid bulb. There is severe atherosclerotic plaque formation of the origin of the right internal carotid artery with a near complete occlusion. Multiple calcific plaques in the internal carotid artery. Normal origin of the right external carotid artery (ECA). LEFT CAROTID ARTERIES: There is atherosclerotic plaque formation of the common carotid artery, but without a hemodynamically significant stenosis. There is moderate atherosclerotic plaque formation with moderate narrowing of the carotid bulb. There is severe atherosclerotic plaque formation of the origin of the left internal carotid artery with a near complete occlusion. Scattered plaque formation throughout the internal carotid artery. Normal origin of the left external carotid artery (ECA). VERTEBRAL ARTERIES: Nonstenotic calcific plaques in the vertebral arteries. CT/CTA Neck W/WO Contrast IMPRESSION: High-grade stenosis at the origin of both internal carotid arteries. Electronically Signed: Antonio Pascual MD at 12:28 EST Tel [phone], Service support , CC: Mook Kamara MD; Marvel Cook DO Service Delivery Supervisor: Signed CBC W/DIFF, AUTOMATED Collected: 11/04/2018 Status: F Source: [facility] 11:00 AM [facility] REPOSITORY TYPE CODE TESTS RESULT OUT OF RANGE REFERENCE UNITS LAB L100.1000 4.4-11.0 K/mm3 Normal WBC 8.9 LAB L100.1200 4.2-5.4 M/mm3 Low RBC 3.93 LAB L100.1300 12.0-15.0 g/dl Normal HGB 12.5 LAB L100.1400 37-47 % Normal HCT 40.5 LAB L100.1500 81-99 fL High MCV 103.1 LAB L100.1600 27.0-32.0 pg Normal MCH 31.8 LAB L100.1700 32-36 g/gl Low MCHC 30.9 LAB L100.1810 11.6-14.6 % High RDW CV 15.4 LAB L100.1820 35.1-43.9 fl High RDW SD 57.6 LAB L100.1900 150-450 K/mm3 Low PLT 134 LAB L100.2000 6.2-12.0 fl Normal MPV 9.5 LAB L100.2100 47-70 % High NEUT% 70.4 LAB L100.2200 19-41 % Low LY% 16.6 LAB L100.2300 0-10 % Normal MONO% 10.0 LAB L100.2400 0-5 % Normal EO% 2.6 LAB L100.2500 0-1 % Normal BASO% 0.3 LAB L100.2550 0.0-0.9 % Normal IM GRAN % 0.100 Result Comment: IG% - Immature Granulocytes (promyelocytes, myelocytes and metamyelocytes) > 1% indicates that a LEFT SHIFT is Present. LAB L100.2620 2.0-7.7 X10 3/uL Normal Absolute Neut 6.3 LAB L100.2720 0.83-4.51 X10 3/ul Normal Absolute Lymph 1.47 Performed By: #### L100.0100 #### [facility] [address] [place], [address] PROTHROMBIN TIME W/INR Collected: 11/04/2018 Status: F Source: [facility] 11:00 AM [facility] REPOSITORY TYPE CODE TESTS RESULT OUT OF RANGE REFERENCE UNITS LAB L300.4150 11.7-14.9 SECONDS Normal PROTIME 13.7 LAB L300.4200 Normal INR 1.1 Performed By: #### L300.3900, L300.4310 #### [facility] [address] [facility] [place], [address] PARTIAL THROMBOPLAST Collected: 11/04/2018 Status: F Source: [facility] TIME 11:00 AM [facility] REPOSITORY TYPE CODE TESTS RESULT OUT OF RANGE REFERENCE UNITS LAB L300.4310 24.1-36.2 Seconds Normal PTT 28.7 Performed By: #### L300.3900, L300.4310 #### [facility] [address] [facility] [place], [address] BASIC METABOLIC Collected: 11/04/2018 Status: F Source: [facility] PROFILE (BMP) 11:00 AM [facility] REPOSITORY TYPE CODE TESTS RESULT OUT OF RANGE REFERENCE UNITS LAB L501.0100 74-106 mg/dL High GLU 158 Result Comment: Fasting Glucose result greater than or equal to 126 mg/dL suggests DIABETES MELLITUS per A.D.A. criteria. Please note revised GLUCOSE reference range effective 2017. LAB L501.1000 7-18 mg/dL High BUN 34 LAB L501.1100 0.55-1.02 mg/dL High CREAT,SERUM 5.04 Result Comment: The validity of the calculated GFR AND GFRAA in patients over 70 years has not been determined. Clinical correlation is essential. LAB L501.1110 >60 mL/min Low EST GFR 9 Result Comment: Non- GFR Calc LAB L501.1115 >60 mL/min Low EST GFR - AA 11 Result Comment: GFR Calc LAB L501.1255 ml/min Normal Estimated CRCL 9.43 LAB L501.1300 10-20 RATIO Low BUN/CRE 6.7 LAB L501.2200 8.5-10. mg/dL Normal 1 CA 8.6 LAB L501.5300 136-145 mmol/L Normal NA 138 LAB L501.5600 3.5-5.1 mmol/L Normal K 3.8 LAB L501.5900 98-107 mmol/L Normal CL 98 LAB L501.6100 21.0-32 mmol/L Normal .0 CO2 32.0 LAB L501.6200 5-15 Normal GAP 8 Performed By: #### L500.2500, L501.4010 #### [facility] [address] [facility] [place], [address] TROPONIN-I Collected: 11/04/2018 Status: F Source: [place] 11:00 AM [facility] REPOSITORY TYPE CODE TESTS RESULT OUT OF RANGE REFERENCE UNITS LAB L501.4010 <0.045 ng/mL High 0.565 TROPONIN-I Result Comment: TROPONIN-I EXPECTED VALUES <0.045 Negative 0.045 - 0.590 Consistent with Cardiac Damage > OR = 0.600 Critical Value Not every elevated troponin is indicative of NE. These values should be used with clinical judgement in examining the patient's clinical picture for diagnosis. To establish a diagnosis of NE versus myocardial injury, there must be a demonstrated rise and/or fall in the troponin values, in addition to ischemic symptoms, EKG changes, new regional wall motion abnormality, and/or angiographical evidence. PLEASE NOTE: REFERENCE RANGES EDITED 18 Performed By: #### L500.2500, L501.4010 #### [facility] [address] [facility] [place], [address] BRAIN/HEAD WITHOUT Observed: 11/04/2018 Status: F Source: [place] CONTRAST 10:54 AM [facility] REPOSITORY [facility] Imaging Services [address] [facility] [place] [address] Brain/Head without Contrast MR#: [id number] Acct: [id number] Name: LUZ BACA Rep #: [id number] : 1940 F 78 From: Antonio Pascual MD PCP: Mook Kamara MD Status: REG ER Study: Brain/Head without Contrast Date of Exam: 11/04/18 Exam# [id number] Ordering Dr: Marvel Cook DO STUDY: CT BRAIN WITHOUT CONTRAST REASON FOR EXAM: Female, 78 years old. Facial droop. RADIATION DOSAGE (If Supplied By Facility): CTDIvol = ( 44.99 ) mGy, DLP = ( 745.49 ) mGycm TECHNIQUE: Transaxial CT imaging of the brain was performed without administration of intravenous contrast material. Individualized dose optimization techniques were used for this CT. COMPARISON: None. FINDINGS: Normal soft tissue structures. Normal calvarium. There is mild cerebral atrophy with widening of the extra- axial spaces and ventricular dilatation. There are areas of decreased attenuation within the white matter tracts of the supratentorial brain, consistent with microvascular disease changes. Normal basal ganglia and thalami. Normal brainstem. There is mild cerebellar atrophy. Empty sella. There is no intracranial hemorrhage. There are no findings of an acute ischemic infarction. Atherosclerotic calcification of the vertebral arteries and the cavernous portions of the internal carotid arteries bilaterally. Normal visualized paranasal sinuses. CT/Brain/Head without Contrast IMPRESSION: Chronic involutional changes of the brain. N.B. : The above information has been verbally conveyed by Antonio Pascual MD to Marvel Cook on 11/04/2018 11:06:07 (ET). Electronically Signed: Antonio Pascual MD at 11:07 EST Tel [phone], Service support , CC: Mook Kamara MD; Marvel Cook DO Service Delivery Supervisor: Signed CHEST 1 VIEW Observed: 11/04/2018 Status: F Source: [place] 10:54 AM [facility] REPOSITORY [facility] Imaging Services [address] [place] [address] Chest 1 View MR#: [id number] Acct: [id number] Name: LUZ BACA Rep #: [id number] : 1940 F 78 From: Antonio Pascual MD PCP: Mook Kamara MD Status: REG ER Study: Chest 1 View Date of Exam: 11/04/18 Exam# [id number] Ordering Dr: Marvel Cook DO STUDY: X-RAY CHEST REASON FOR EXAM: Female, 78 years old. Weakness. Slurred speech. TECHNIQUE: Single AP portable view of the chest. COMPARISON: Comparison is made with prior study dated May 19, 2018. FINDINGS: A right-sided double-lumen catheter is in situ with the tip in the right atrium. EKG electrodes are seen. There is evidence of passive congestion and mild degree of CHF. Blunting of the left costophrenic angle. Mild left basilar atelectasis. Sternal cerclage wires and vascular clips are present from a prior sternotomy and coronary artery bypass graft procedure (CABG). Mild cardiomegaly. A left-sided unipolar pacemaker is seen. Normal mediastinum and samuel. Normal visualized pulmonary arteries. There is atherosclerotic calcification of the aortic arch with tortuosity. There are diffuse degenerative changes of the visualized thoracic spine. Normal visualized ribs, clavicles, and shoulders. There is no demonstrated abnormality of the visualized soft tissue structures of the upper abdomen. RAD/Chest 1 View IMPRESSION: Findings in keeping with a mild degree of CHF. Blunting of left costophrenic angle with left basilar atelectasis. Electronically Signed: Antonio Pascual MD at 11:26 EST Tel [phone], Service support , CC: Mook Kamara MD; Marvel Cook DO Service Delivery Supervisor: Signed BEDSIDE GLUCOSE Collected: 11/04/2018 Status: F Source: [facility] 10:52 AM [facility] REPOSITORY TYPE CODE TESTS RESULT OUT OF REFERENCE UNITS RANGE LAB L501.080 70-110 mg/dL High BEDSIDE GLU 149 Result Comment: MANAGEMENT OF PATIENT CARE PER NURSING PROTOCOL Performed By: #### L501.080 #### [facility] Point of Care [address] [place] [address] WOUND CTR HISTORY Observed: 11/04/2018 Status: F Source: [facility] AND PHYSICAL 9:07 AM [facility] REPOSITORY [facility] [address] [place] [address] Wound Ctr History AND Physical 11/03/18 1658 MR#: [id number] Acct: [id number] Name: LUZ BACA Rep #: [id number] : 1940 78 From: Isabela Young [facility] PCP: Mook Kamara MD Status: REG RCR Y Location: WC (1) Dermatitis of lower extremity Status: Acute Current Visit: Yes Code(s): L30.9 - Dermatitis, unspecified (2) Atrial fibrillation Status: Chronic Current Visit: No Code(s): I48.91 - Unspecified atrial fibrillation (3) COPD (chronic obstructive pulmonary disease) Status: Chronic Current Visit: No Code(s): J44.9 - Chronic obstructive pulmonary disease, unspecified (4) Congestive heart failure Status: Chronic Current Visit: No Code(s): I50.9 - Heart failure, unspecified (5) End stage renal disease Status: Chronic Current Visit: No Code(s): N18.6 - End stage renal disease (6) Hyperlipidemia Status: Chronic Current Visit: No Code(s): E78.5 - Hyperlipidemia, unspecified (7) Hypertension Status: Chronic Current Visit: No Code(s): I10 - Essential (primary) hypertension (8) long-term 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 Status: Chronic Current Visit: No Code(s): Z79.01 - long-term (current) use of anticoagulants (9) Type 2 diabetes mellitus Status: Chronic Current Visit: No Code(s): E11.9 - Type 2 diabetes mellitus without complications (10) Venous insufficiency of both lower extremities Status: Chronic Current Visit: No Code(s): I87.2 - Venous insufficiency (chronic) (peripheral) History of Present Illness Date of Service: 11/03/18 Chief Complaint: rash and dry skin to bilateral lower extremities since 2017 History of Wound: This is a 78-year-old white female who presents to the wound healing center today for consultation for her complaints of rash and dry skin to the bilateral lower extremities. She has a past medical history as listed above. The patient was referred by her primary care provider who states that since August 2018 she has had a red itchy rash with dry skin to her bilateral lower extremities. She states that at one point she was wearing Unna boots but these did not help and since then she has been using Aquaphor daily to her bilateral lower extremities. She denies having any open wounds or breaks in the skin at this time. She states that she has not been seen by a compressor repairer for evaluation. She denies any other acute concerns at this time. She denies any other aggravating or relieving factors. The patient otherwise denies any fever, chills, nausea, vomiting, shortness of breath, chest pain or pressure, palpitations, orthopnea, lower extremity edema, syncope or presyncopal episodes. Past Medical History Past Medical History: Chronic Problems (Last Updated 06/16/18 @ 10:57 by Arline Galindo) Hx of atrioventricular node ablation (Chronic 12/19/14) AV node RFA X2 noriega per report;Subsequent implant of single chamber ICD per Dr. 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 Cheung @ [facility]. Also subsequent PCI's :PCI X 6 to RCA in 2013; PCI X 3 in 2014: reports not available but referenced in Dr. Cardona's office visit dated 05/24/2018 History of ventricular septal myectomy (Chronic 07/18/04) Septal Myectomy and CABG X 2 with Left internal thoracic artery to the LAD, and reversed SVG of the PDA per Dr. Cheung @ [facility] S/P CABG x 2 (Chronic 07/18/04) Septal Myectomy and CABG X 2 with Left internal thoracic artery to the LAD, and reversed SVG of the PDA per Dr. Cheung @ [facility] [place] Hypertension (Chronic) Hyperlipidemia (Chronic) Type 2 diabetes mellitus (Chronic) COPD (chronic obstructive pulmonary disease) (Chronic) Chronic hypoxemic respiratory failure (Chronic) Atrial fibrillation (Chronic) 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 12/11/16) Initial single chamber ICD implant was 12/19/[address] Loya @ [facility] [place]. S/P EP/RFA; subsequent upgrade to combination pacer/ICD implant 12/11/16 [facility] VR [id number] End stage renal disease (Chronic) Diabetic neuropathy (Chronic) Peripheral vascular disease (Chronic) Venous insufficiency of both lower extremities (Chronic) Congestive heart failure (Chronic) History of PTCA (Chronic) PCI X 6 to RCA in 2013; PCI X 3 in 2014: reports not available but referenced in Dr. Cardona's office visit dated 05/24/2018 Surgical History: angioplasty, cholecystectomy, coronary bypass surgery, hysterectomy, pacemaker implantation, - Allergies/Adverse Reactions: Allergies latex Allergy (Verified 06/14/18 10:42) Anaphylaxis meperidine [From Demerol] Allergy (Verified 06/14/18 10:42) Hives Penicillins Allergy (Verified 06/14/18 10:42) Hives Tetracyclines Allergy (Verified 06/14/18 10:42) Hives aspirin Adverse Reaction (Verified 06/14/18 10:42) Unknown atorvastatin Adverse Reaction (Verified 06/14/18 10:42) Unknown codeine Adverse Reaction (Verified 06/14/18 10:42) Unknown hydromorphone [From Dilaudid] Adverse Reaction (Verified 06/14/18 10:42) Unknown pentazocine Adverse Reaction (Verified 06/14/18 10:42) Unknown pioglitazone Adverse Reaction (Verified 06/14/18 10:42) Unknown propoxyphene Adverse Reaction (Verified 06/14/18 10:42) Unknown sulfamethoxazole [From Bactrim] Adverse Reaction (Verified 06/14/18 10:42) Unknown trimethoprim [From Bactrim] Adverse Reaction (Verified 06/14/18 10:42) Unknown Home Medications: Ambulatory Orders Medication Instructions Recorded Nitroglycerin 0.4 mg SL Q5M PRN 12/06/17 Simvastatin 40 mg PO DAILY 12/06/17 Insulin Glargine,Hum.rec.anlog 24 unit SQ BREAKFAST 04/22/18 - Family History Maternal Family History: Family History (Last Updated 06/16/18 @ 10:47 by Arline Galindo) Unknown No problems noted. Hypertension Paternal Family History: Family History (Last Updated 06/16/18 @ 10:47 by Arline Galindo) Unknown No problems noted. Heart Disease Smoking Status: Former smoker Review of Systems Constitutional: Denies: Chills, Fever, Weight Change Eyes: Denies: Pain, Vision Change HEENT: Denies: Difficulty Hearing, Difficulty Swallowing, Sinus Congestion Cardiovascular: Denies: Chest Pain, Palpitations Respiratory: Denies: Cough, Shortness of Breath Gastrointestinal: Denies: Diarrhea, Nausea, Vomiting Genitourinary: Denies: Dysuria, Hematuria Skin: Reports: Dryness, Pruritis, Rash. Denies: Wounds Psychiatric: Denies: Anxiety, Depression Endocrine: Denies: Heat/ Cold Intolerance, Polydipsia, Polyuria Hematologic/ Lymphatic: Denies: Easy Bruising, Easy Bleeding - Physical Exam Vital Signs Temp Pulse Resp BP 96.9 F L 102 H 18 110/48 L 11/03/18 13:29 11/03/18 13:29 11/03/18 13:29 11/03/18 13:29 General: Alert, Oriented x3, Cooperative, No apparent distress HEENT: PERRLA, EOMI Lungs: Clear to auscultation, Diminished Cardiovascular: Irregular Rate, Murmur Abdomen: Soft, Non Tender, Obese Extremities: Edema - Generalized bilateral lower extremity edema with chronic venous changes to bilateral lower extremities and chronic purplish reddish discoloration bilateral lower extremities Skin: - - Erythematous raised rash bilateral lower extremities without any break in the skin, multiple dry patchy areas of skin bilateral lower extremities as well Wound Measurements and Assessment WC - Nurse 1 - General Ulcer Measurement Start: 11/03/18 13:26 Freq: Status: Active Protocol: Activity Type Activity Date Activity User E-Sign Co-Sign Detail Recorded Client Recorded Date Recorded By Document 11/03/18 13:29 BMF [id number] 11/03/18 13:48 BMF Neurological: Neuro grossly intact Psych/Mental Status: Normal Affect, Appropriate Debridement Note No debridement was completed today Assessment/Plan Active Problems (Last Reviewed 06/14/18 @ 10:42 by Arline Galindo) Dermatitis of lower extremity (Acute) Assessment: Dermatitis bilateral lower extremity Plan: Discussed with patient that since there are no open wounds at this time and her problems are more dermatologic in nature that a dermatology referral is warranted. No debridement is indicated at this time. Patient may continue with her daily Aquaphor applications and discussed red flag symptoms of infection and/or cellulitis that require urgent medical attention. Patient verbalized understanding. Patient to follow-up at wound center as needed if any new wounds occur in the future. Otherwise she will be discharged today to follow-up with dermatology and primary care. This note was generated with [employer]ation software. It may contain incorrect words, spelling, and punctuation that were not noted in checking the note before signing. Code Visit Office Visits / Consults: [id number] OV L3 Est 11/04/18 0907 <Electronically signed by Isabela QUIROGA> Date Isabela QUIROGA CC: Signed PROGRESS Observed: 11/03/2018 Status: COMPLETED Source: [place] 11:09 AM [facility] REPOSITORY [facility] ID: [id number] Author: Jameson Adams) Koffi Service: (none) Author Type: Physician Type: Progress Notes Filed: 11/03/2018 1:54 PM Note Text: Chief Complaint Patient presents with: 4 week follow up HPI Luz Baca is a 78 year old female who presents here today for 4 week follow up. Lower leg wounds: Patient unable to wear unna boots due to pain and DAMION wraps were too tight so cut them off. Has been using pink salve and gold quesada ointment over the counter because pharmacy didn't have zinc oxide. No longer has serous drainage, but legs are red, flaky and itchy. Has appointment with wound care today at 1pm. Had to reschedule from 10/27 due to dialysis appointment. DIABETES MELLITUS: Ms. Baca was last seen 3 months ago. Since our last visit she denies low sugar/hypoglycemic reactions. Admits to polyphagia, polypdipsia, polyuria, blurred vision and uncontrolled DM neuropathy with burning pain in her feet bilaterally. Requesting higher dose of Lyrica. Follows a diabetic diet some of the time. She is compliant with medication(s) and is tolerating med(s) without any side effects. She reports checking her glucose on a three times a day schedule with sugars in the 70-137 range. Patient's last HgA1C was Hemoglobin A1C (%) Date Value 08/04/2018 6.3 05/25/2018 6.8 Hemoglobin A1C (POCT) (%) Date Value 11/03/2018 5.8 ) Last Ophthalmology exam was within the past 12 months Last Podiatry exam was within the past 12 months Patient still complaining of epigastric pain similar to last OV. Finished cipro and flagyl for diverticulitis and did not help with symptoms. Admits to increased reflux and burping. Taking PPI as prescribed without relief. Vanessa nausea, vomiting, diarrhea, chest pain, SOB, hematochezia, melena. Had OV with vascular surgery yesterday who recommended she use tubigrip stockings which she is wearing today. Advised to discuss starting her Eliquis back up as hematoma has resolved, No GI bleeding symptoms, no need for f/u EGD or other surgery at this time. Will restart and notify cardiology. Hypotension: patient restarted Imdur. BP well controlled on current regimen. Denies syncope, lightheadedness/vertigo. A fib/SVT: rate controlled on amiodarone. Still holding beta lenny for hypotension. CAD: Denies chest pain, SOB, palpitations, orthopnea, LE swelling on current regimen. Has f/u appointment with cardiology on 01/26. COPD: using oxygen at 2.5 to 3 L via NC. Unable to use inhalers as she cannot take deep enough breath. Has nebulizers at home for PRN cough/wheezing, has not required recently. Past medical history, appointments, medications, allergies reviewed. Previous Medical History PAST MEDICAL HISTORY Diagnosis Date - Arthritis - Atrial fibrillation (HCC) - CAD (coronary artery disease) stents x9, defibrillator, CABG. Seeing Dr. Cardona - Cardiac defibrillator in place - Cardiomegaly - Carotid artery disease (HCC) left - Chronic hypoxemic respiratory failure (HCC) 07/01/2018 - COPD (chronic obstructive pulmonary disease) ([facility]) Dr. Cruz - Depression - Diabetes ([facility]) - Diabetic neuropathy ([facility]) - Edema - ESRD (end stage renal disease) on dialysis ([facility]) ZACH Nieto, Dr. Swartz - GERD (gastroesophageal reflux disease) - Gout with hyperuricemia - HH (hiatus hernia) - HOCM (hypertrophic obstructive cardiomyopathy) ([facility]) S/P Septal Myectomy in 2003. Now with LVEF 50% and mod/severe pulm HTN with tricuspid regurgitation - HTN (hypertension) - Hyperlipidemia - Morbid obesity with BMI of 40.0-44.9, adult ([facility]) - Presence of combination internal cardiac defibrillator (ICD) and pacemaker - Sleep apnea 2011 not on CPAP, unable to tolerate mask 02/2017 - SVT (supraventricular tachycardia) ([facility]) NSVT and questionable VT in 2003 post op Previous Surgical History PAST SURGICAL HISTORY Procedure Laterality Date - CHOLECYSTECTOMY HX - DIALYSIS ACCESS SYSTEM - HEART SURGERY HX 07/18/2004 Septal myectomy and CABG x2 (DEBORAH-LAD, SVG-PDA). - HYSTERECTOMY HX - IANDD PERIANAL ABSCESS - PACEMAKER with defib - PAST SURGICAL HISTORY OF left breast nodule removed - PAST SURGICAL HISTORY OF skin lesions removed - STENT PLACEMENT coronary Family History FAMILY HISTORY Problem Relation Age of Onset - Hypertension Mother living at age 93, HTN - Heart Failure Mother [place] - Cancer Father age 71, lung cancer - Heart Attack Sister - COPD Brother - Heart Paternal Grandmother - Heart Paternal Grandfather - Heart Sister - Diabetes Sister - Heart Sister - Breast Cancer Sister - Diabetes Sister - Hypertension Brother - Diabetes Brother Patient Allergies ALLERGIES Allergen Reactions - Aspirin Other: See Comments Patient states that she bled out every orifice, sts not allowed to take it at all. Patient states she was bleeding out of nose and mouth after one dose. - Bactrim [Sulfametho* Other: See Comments My throat swells up. - Latex Rash, Itching Itching and welts. No wheezing or shortness of breath. - Penicillins Rash, Itching Tolerated ceftriaxone during 11/2017 admission and cefepime during 12/2017 admission - Tetracycline Rash, GI Upset Emesis and diarrhea. - Atorvastatin Rash - Codeine Other: See Comments Numbness - Dilaudid [Hydromorp* Mental Status Change - Meperidine - Pentazocine - Pioglitazone Unknown - Propoxyphene Current Medications Current Outpatient Prescriptions on File Prior to Visit: docusate sodium (COLACE) 100 mg capsule Take 1 capsule by mouth twice daily as needed for Constipation. pregabalin (LYRICA) 25 mg capsule Take 1 tablet PO daily with an additional 1 tablet PO after dialysis MWF insulin glargine (LANTUS SOLOSTAR U-100 INSULIN) 100 unit/mL (3 mL) inpn Night before dialysis (Wed, and ) pt is to take Lantus 18 unitsThe other nights, (---Wed) pt is to take 28 units Lantus. ondansetron (ZOFRAN) 4 mg tablet Take 1 tablet by mouth every 8 hours as needed. COMPOUNDED PRESCRIPTION Rosalidn boots to be worn daily for DX: superficial wounds on LE bilaterally. metoclopramide HCl (REGLAN) 5 mg tablet Take 0.5 tablets by mouth three times daily. silver sulfADIAZINE (SILVADENE,THERMAZENE) 1 % cream Apply 1 application to affected area once daily. hydrOXYzine HCl (ATARAX) 25 mg tablet Take 1 tablet by mouth every 12 hours as needed for Itching/Rash. amiodarone (PACERONE) 200 mg tablet Take 1 tablet by mouth once daily. simvastatin (ZOCOR) 40 mg tablet Take 1 tablet by mouth every morning. isosorbide mononitrate ER (IMDUR) 30 mg 24 hr tablet TAKE THREE TABLETS BY MOUTH ONCE DAILY insulin aspart U-100 (NOVOLOG FLEXPEN U-100 INSULIN) 100 unit/mL inpn Using Sliding Scale: 150-209 1 unit, 210-269 2 units, 270- 329 3 units, 330-389 4 units, 390-449 5 units insulin glargine (LANTUS SOLOSTAR U-100 INSULIN) 100 unit/mL (3 mL) inpn Inject 50 Units subcutaneously every morning. polyethylene glycol 3350 (MIRALAX) 17 gram/dose powder Use 1-2 times daily as needed for constipation. pantoprazole DR (PROTONIX) 40 mg tablet Take 1 tablet by mouth once daily. senna (SENNA) 8.6 mg tab Take 8.6 mg by mouth once daily. ipratropium-albuterol (DUONEB) 0.5 mg-3 mg(2.5 mg base)/3 mL nebu Inhale 3 mL as instructed every 4 hours while awake. And prn for wheezing/shortness of breath. budesonide (PULMICORT) 0.5 mg/2 mL nebulizer solution Use 2 mL via nebulizer once daily. INHALE 2 ML BY NEBULIZER OVER 5-15 MINUTES EVERY 12 HOURS. nystatin (NYSTOP) powder Apply 1 application to affected area three times daily. guaiFENesin-dextromethorphan (ROBITUSSIN DM) 100-10 mg/5 mL syrup Take 5-10 mL by mouth every 6 hours as needed for Cough. nitroglycerin sublingual (NITROQUICK) 0.4 mg SL tablet Dissolve 1 tablet under the tongue every 5 minutes as needed. OXYGEN, HOME THERAPY, Inhale 2.5 L/min as instructed continuous. 3 L/min when leaves home. No current facility-administered medications on file prior to visit. Social History Social History Marital status: Spouse name: Years of education: Number of children: Social History Main Topics Smoking status: Former Smoker Packs/day: 2.50 Years: 43.00 Types: Cigarettes Start date: 1961 Quit date: 07/07/2004 Smokeless tobacco: Never Used Alcohol use: No Drug use: No Other Topics Concern Caffeine Concern Yes Comment:coffee 1 cup daily Special Diet No Comment:Regular Exercise No Comment:no unable, due to SOB x several months. Social History Narrative Patient and daughter live together. Review of Symptoms REVIEW OF SYSTEMS GENERAL: No weight loss, malaise or fevers RESPIRATORY: Negative for cough, hemoptysis, wheezing, COPD, dyspnea or shortness of breath CARDIOVASCULAR: Negative for chest pain, leg swelling, hypertension, CHF or palpitations GI: No nausea, vomiting, or diarrhea : No history of dysuria, frequency or incontinence SKIN: See HPI NEURO: SEE HPI EXAM: BP 114/68 Pulse 72 Resp 12 Wt 92.1 kg (203 lb) SpO2 92% BMI 30.87 kg/m? General Appearance: Well appearing, alert, in no acute distress, well-hydrated, well nourished.. Skin: LE erythematous from just below knee to ankle without warmth to touch or TTP. Erythema wraps around side of calf bilaterally. Flaking skin without drainage or discharge. Lungs: Decreased lung sounds throughout due to poor air intake and wide chest. Heart: Negative findings: no murmurs, clicks, or gallops, Positive findings: irregularly irregular rhythm. Abdomen: Normal abdominal exam, Negative findings: no masses palpable, no organomegaly, soft, and aorta normal, Positive findings: tenderness moderate epigastric without guarding or rebound. Extremities: no edema, tubigrips in place. Health Maintenance List DAMION/ARB MED PRESCRIBED due on 06/23/2018 DILATED RETINAL EXAM due on 10/27/2018 STATIN MED ADHERENCE due on 11/18/2018 DIABETES MED ADHERENCE due on 11/18/2018 DIABETIC FOOT EXAM due on 01/31/2019 HBA1C due on 02/02/2019 LDL CHOLESTEROL due on 05/25/2019 COLORECTAL CANCER SCREENING,SEE MODIFIER due on 07/05/2019 SERUM CREATININE due on 09/23/2019 HEMOGLOBIN/HEMATOCRIT due on 09/23/2019 ANNUAL PCP TEAM CHRONIC DISEASE VISIT due on 10/06/2019 BP CONTROLLED (<130/80) due on 11/02/2019 DTAP,TDAP,TD(2 - Td) due on 07/05/2028 BONE DENSITY Completed ADULT PREVNAR-13 Completed INFLUENZA Completed PNEUMOVAX AGE 65 AND OVER WITH 5YR LOOKBACK Completed Data reviewed Component Latest Ref Rng AND Units 06/30/2018 06/30/2018 08/04/2018 08/05/2018 09/23/2018 11/03/2018 9:45 AM 9:45 AM WBC 3.70 - 11.00 k/uL 8.10 6.04 RBC 3.90 - 5.20 m/uL 3.67 (L) 3.52 (L) Hemoglobin 11.5 - 15.5 g/dL 11.4 (L) 10.9 (L) Hematocrit 36.0 - 46.0 % 36.9 35.2 (L) MCV 80.0 - 100.0 fL 100.5 (H) 100.0 MCH 26.0 - 34.0 pG 31.1 31.0 MCHC 30.5 - 36.0 g/dL 30.9 31.0 RDW-CV 11.5 - 15.0 % 14.2 14.3 Platelet Count 150 - 400 k/uL 160 116 (L) MPV 9.0 - 12.7 fL 9.8 9.6 Neut% % 71.4 Abs Neut (ANC) 1.45 - 7.50 k/uL 5.78 Lymph% % 15.9 Abs Lymph 1.00 - 4.00 k/uL 1.29 Stoddard% % 9.9 Abs Stoddard <0.87 k/uL 0.80 Eosin% % 2.2 Abs Eosin <0.46 k/uL 0.18 Baso% % 0.6 Abs Baso <0.11 k/uL 0.05 Nucleated Reds 0 /100 WBC 0.0 Absolute nRBC <0.01 k/uL <0.01 Diff Type Auto Diff Protein, Total 6.3 - 8.0 g/dL 7.2 Albumin 3.9 - 4.9 g/dL 3.4 (L) 3.1 (L) Calcium 8.5 - 10.2 mg/dL 9.5 9.5 8.4 (L) Bilirubin, Total 0.2 - 1.3 mg/dL 0.5 Alkaline Phosphatase 34 - 123 U/L 98 AST 13 - 35 U/L 14 Glucose 74 - 99 mg/dL 106 (H) 157 (H) 88 BUN 7 - 21 mg/dL 23 (H) 32 (H) 34 (H) Creatinine 0.58 - 0.96 mg/dL 4.15 (H) 4.16 (H) 4.36 (H) 5.46 (H) Sodium 136 - 144 mmol/L 137 138 139 Potassium 3.7 - 5.1 mmol/L 4.7 3.7 4.1 Chloride 97 - 105 mmol/L 93 (L) 93 (L) 95 (L) CO2 22 - 30 mmol/L 32 (H) 28 31 (H) Anion Gap 9 - 18 mmol/L 12 17 13 ALT 7 - 38 U/L 16 10 eGFR- 13 13 12 9 eGFR-All Other Races . 10 10 10 8 Phosphorus 2.7 - 4.8 mg/dL 6.5 (H) Hemoglobin A1C 4.3 - 5.6 % 6.3 (H) Estimated Average Glucose mg/dL 134 TSH 0.400 - 5.500 uU/mL 2.080 Occult Blood, Stool Negative Positive (A) Hemoglobin A1C (POCT) 4.2 - 5.6 % 5.8 (A) ASSESSMENT/PLAN: 1. 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 - Decrease Lantus to 16 units QPM on nights before dialysis and 24 units all other nights to prevent hypoglycemia with A1C of 5.8. - Blood glucose monitoring on a three times a day schedule - Encouraged regular aerobic exercise and weight loss - Follow up in 3 months, sooner should any other issues arise. - Discussed diabetic education issues of medical terminologist diabetic complications, hypoglycemic symptoms, hyperglycemic symptoms, diet, medications- side effects and need for compliance, importance of exercise, use and side effects of insulin and importance of appointments with Inspector Aide with patient. 2. Diabetic polyneuropathy associated with type 2 diabetes mellitus (HCC) - ICD9: 250.60, 357.2, ICD10: E11.42 Increase Lyrica to 50 mg daily with additional 25 mg after dialysis. - PREGABALIN 25 MG CAPSULE - HEMOGLOBIN A1C (POC) - PREGABALIN 25 MG CAPSULE 3. Atrial fibrillation, unspecified type (HCC) - ICD9: 427.31, ICD10: I48.91 Rate controlled on amiodarone. F/u with cardiology as scheduled. Restart Eliquis and will monitor CBC as hematoma has resolved, had negative EGD and colonoscopy for bleeding, and has no upcoming surgery scheduled. - APIXABAN 5 MG TABLET 4. Coronary artery disease, angina presence unspecified, unspecified vessel or lesion type, unspecified whether rincon or transplanted heart - ICD9: 414.00, ICD10: I25.10 Asymptomatic. Continue current regimen. F/u with cardiology. 5. Chronic obstructive pulmonary disease, unspecified COPD type (HCC) - ICD9: 496, ICD10: J44.9 Continue oxygen daily. Use nebulizer PRN. 6. Gastroesophageal reflux disease, esophagitis presence not specified - ICD9: 530.81, ICD10: K21.9 Continue Protonix, add zantac. GERD diet. Call in 1 week with update. 7. Epigastric pain - ICD9: 789.06, ICD10: R10.13 See above. - RANITIDINE 150 MG TABLET 8. Hypertension - ICD9: 401.9, ICD10: I10 - good control - Continue current medication(s) - Encouraged dietary sodium restriction/DASH diet - Recommended regular aerobic exercise. - Reviewed risks of HTN and principles of treatment - Goal of BP <140/90 9. Hyperlipidemia, unspecified hyperlipidemia type - ICD9: 272.4, ICD10: E78.5 - good control - Continue current medication. - Encouraged following a low fat, low cholesterol diet. - Discussed the benefits of regular aerobic exercise and weight loss. 10. ESRD on dialysis (HCC) - ICD9: 585.6, V45.11, ICD10: N18.6, Z99.2 F/u with HD MWF. Recommendations per nephrology. 11. Hypotension, unspecified hypotension type - ICD9: 458.9, ICD10: I95.9 Improved. Continue current regimen. Push PO fluids. 12. Ulcers of both lower extremities, limited to breakdown of skin (HCC) - ICD9: 707.10, ICD10: L97.911, L97.921 Recommendations per wound care. Appointment later today. I spent 40minutes in the visit, with more than 50% of the total [id number] time of the visit in counseling / coordination of care. Jameson Kamara MD CNOV Observed: 11/03/2018 Status: COMPLETED Source: [place] 11:00 AM [facility] REPOSITORY Office Visit (FAMPWS) LZU BACA ([id number]) 1940 F Date Time Provider Department 11/03/18 11:00 AM JAMESON KAMARA) FAMPWS During your visit today, we recorded the following information about you: Pulse Respiration Blood pressure Weight 72/minute 12/minute 114/68 92.1 kg Jameson Kamara MD 11/03/2018 1:54 PM Signed Chief Complaint Patient presents with: 4 week follow up HPI Luz Baca is a 78 year old female who presents here today for 4 week follow up. Lower leg wounds: Patient unable to wear unna boots due to pain and DAMION wraps were too tight so cut them off. Has been using pink salve and gold quesada ointment over the counter because pharmacy didn't have zinc oxide. No longer has serous drainage, but legs are red, flaky and itchy. Has appointment with wound care today at 1pm. Had to reschedule from 10/27 due to dialysis appointment. DIABETES MELLITUS: Ms. Baca was last seen 3 months ago. Since our last visit she denies low sugar/hypoglycemic reactions. Admits to polyphagia, polypdipsia, polyuria, blurred vision and uncontrolled DM neuropathy with burning pain in her feet bilaterally. Requesting higher dose of Lyrica. Follows a diabetic diet some of the time. She is compliant with medication(s) and is tolerating med(s) without any side effects. She reports checking her glucose on a three times a day schedule with sugars in the 70-137 range. Patient's last HgA1C was Hemoglobin A1C (%) Date Value 08/04/2018 6.3 05/25/2018 6.8 Hemoglobin A1C (POCT) (%) Date Value 11/03/2018 5.8 ) Last Ophthalmology exam was within the past 12 months Last Podiatry exam was within the past 12 months Patient still complaining of epigastric pain similar to last OV. Finished cipro and flagyl for diverticulitis and did not help with symptoms. Admits to increased reflux and burping. Taking PPI as prescribed without relief. Vanessa nausea, vomiting, diarrhea, chest pain, SOB, hematochezia, melena. Had OV with vascular surgery yesterday who recommended she use tubigrip stockings which she is wearing today. Advised to discuss starting her Eliquis back up as hematoma has resolved, No GI bleeding symptoms, no need for f/u EGD or other surgery at this time. Will restart and notify cardiology. Hypotension: patient restarted Imdur. BP well controlled on current regimen. Denies syncope, lightheadedness/vertigo. A fib/SVT: rate controlled on amiodarone. Still holding beta lenny for hypotension. CAD: Denies chest pain, SOB, palpitations, orthopnea, LE swelling on current regimen. Has f/u appointment with cardiology on 01/26. COPD: using oxygen at 2.5 to 3 L via NC. Unable to use inhalers as she cannot take deep enough breath. Has nebulizers at home for PRN cough/wheezing, has not required recently. Past medical history, appointments, medications, allergies reviewed. Previous Medical History PAST MEDICAL HISTORY Diagnosis Date - Arthritis - Atrial fibrillation ([facility]) - CAD (coronary artery disease) stents x9, defibrillator, CABG. Seeing Dr. Cardona - Cardiac defibrillator in place - Cardiomegaly - Carotid artery disease ([facility]) left - Chronic hypoxemic respiratory failure ([facility]) 07/01/2018 - COPD (chronic obstructive pulmonary disease) ([facility]) Dr. Cruz - Depression - Diabetes ([facility]) - Diabetic neuropathy ([facility]) - Edema - ESRD (end stage renal disease) on dialysis ([facility]) ZACH Nieto, Dr. Swarzt - GERD (gastroesophageal reflux disease) - Gout with hyperuricemia - HH (hiatus hernia) - HOCM (hypertrophic obstructive cardiomyopathy) ([facility]) S/P Septal Myectomy in 2003. Now with LVEF 50% and mod/severe pulm HTN with tricuspid regurgitation - HTN (hypertension) - Hyperlipidemia - Morbid obesity with BMI of 40.0-44.9, adult ([facility]) - Presence of combination internal cardiac defibrillator (ICD) and pacemaker - Sleep apnea 2011 not on CPAP, unable to tolerate mask 02/2017 - SVT (supraventricular tachycardia) ([facility]) NSVT and questionable VT in 2003 post op Previous Surgical History PAST SURGICAL HISTORY Procedure Laterality Date - CHOLECYSTECTOMY HX - DIALYSIS ACCESS SYSTEM - HEART SURGERY HX 07/18/2004 Septal myectomy and CABG x2 (DEBORAH-LAD, SVG-PDA). - HYSTERECTOMY HX - IANDD PERIANAL ABSCESS - PACEMAKER with defib - PAST SURGICAL HISTORY OF left breast nodule removed - PAST SURGICAL HISTORY OF skin lesions removed - STENT PLACEMENT coronary Family History FAMILY HISTORY Problem Relation Age of Onset - Hypertension Mother living at age 93, HTN - Heart Failure Mother [place] - Cancer Father age 71, lung cancer - Heart Attack Sister - COPD Brother - Heart Paternal Grandmother - Heart Paternal Grandfather - Heart Sister - Diabetes Sister - Heart Sister - Breast Cancer Sister - Diabetes Sister - Hypertension Brother - Diabetes Brother Patient Allergies ALLERGIES Allergen Reactions - Aspirin Other: See Comments Patient states that she bled out every orifice, sts not allowed to take it at all. Patient states she was bleeding out of nose and mouth after one dose. - Bactrim [Sulfametho* Other: See Comments My throat swells up. - Latex Rash, Itching Itching and welts. No wheezing or shortness of breath. - Penicillins Rash, Itching Tolerated ceftriaxone during 11/2017 admission and cefepime during 12/2017 admission - Tetracycline Rash, GI Upset Emesis and diarrhea. - Atorvastatin Rash - Codeine Other: See Comments Numbness - Dilaudid [Hydromorp* Mental Status Change - Meperidine - Pentazocine - Pioglitazone Unknown - Propoxyphene Current Medications Current Outpatient Prescriptions on File Prior to Visit: docusate sodium (COLACE) 100 mg capsule Take 1 capsule by mouth twice daily as needed for Constipation. pregabalin (LYRICA) 25 mg capsule Take 1 tablet PO daily with an additional 1 tablet PO after dialysis MWF insulin glargine (LANTUS SOLOSTAR U-100 INSULIN) 100 unit/mL (3 mL) inpn Night before dialysis (Wed, and ) pt is to take Lantus 18 unitsThe other nights, (-) pt is to take 28 units Lantus. ondansetron (ZOFRAN) 4 mg tablet Take 1 tablet by mouth every 8 hours as needed. COMPOUNDED PRESCRIPTION Rosalind boots to be worn daily for DX: superficial wounds on LE bilaterally. metoclopramide HCl (REGLAN) 5 mg tablet Take 0.5 tablets by mouth three times daily. silver sulfADIAZINE (SILVADENE,THERMAZENE) 1 % cream Apply 1 application to affected area once daily. hydrOXYzine HCl (ATARAX) 25 mg tablet Take 1 tablet by mouth every 12 hours as needed for Itching/Rash. amiodarone (PACERONE) 200 mg tablet Take 1 tablet by mouth once daily. simvastatin (ZOCOR) 40 mg tablet Take 1 tablet by mouth every morning. isosorbide mononitrate ER (IMDUR) 30 mg 24 hr tablet TAKE THREE TABLETS BY MOUTH ONCE DAILY insulin aspart U-100 (NOVOLOG FLEXPEN U-100 INSULIN) 100 unit/mL inpn Using Sliding Scale: 150-209 1 unit, 210-269 2 units, 270-329 3 units, 330-389 4 units, 390-449 5 units insulin glargine (LANTUS SOLOSTAR U-100 INSULIN) 100 unit/mL (3 mL) inpn Inject 50 Units subcutaneously every morning. polyethylene glycol 3350 (MIRALAX) 17 gram/dose powder Use 1-2 times daily as needed for constipation. pantoprazole DR (PROTONIX) 40 mg tablet Take 1 tablet by mouth once daily. senna (SENNA) 8.6 mg tab Take 8.6 mg by mouth once daily. ipratropium-albuterol (DUONEB) 0.5 mg-3 mg(2.5 mg base)/3 mL nebu Inhale 3 mL as instructed every 4 hours while awake. And prn for wheezing/shortness of breath. budesonide (PULMICORT) 0.5 mg/2 mL nebulizer solution Use 2 mL via nebulizer once daily. INHALE 2 ML BY NEBULIZER OVER 5-15 MINUTES EVERY 12 HOURS. nystatin (NYSTOP) powder Apply 1 application to affected area three times daily. guaiFENesin-dextromethorphan (ROBITUSSIN DM) 100-10 mg/5 mL syrup Take 5-10 mL by mouth every 6 hours as needed for Cough. nitroglycerin sublingual (NITROQUICK) 0.4 mg SL tablet Dissolve 1 tablet under the tongue every 5 minutes as needed. OXYGEN, HOME THERAPY, Inhale 2.5 L/min as instructed continuous. 3 L/min when leaves home. No current facility-administered medications on file prior to visit. Social History Social History Marital status: Spouse name: Years of education: Number of children: Social History Main Topics Smoking status: Former Smoker Packs/day: 2.50 Years: 43.00 Types: Cigarettes Start date: 1961 Quit date: 07/07/2004 Smokeless tobacco: Never Used Alcohol use: No Drug use: No Other Topics Concern Caffeine Concern Yes Comment:coffee 1 cup daily Special Diet No Comment:Regular Exercise No Comment:no unable, due to SOB x several months. Social History Narrative Patient and daughter live together. Review of Symptoms REVIEW OF SYSTEMS GENERAL: No weight loss, malaise or fevers RESPIRATORY: Negative for cough, hemoptysis, wheezing, COPD, dyspnea or shortness of breath CARDIOVASCULAR: Negative for chest pain, leg swelling, hypertension, CHF or palpitations GI: No nausea, vomiting, or diarrhea : No history of dysuria, frequency or incontinence SKIN: See HPI NEURO: SEE HPI EXAM: BP 114/68 Pulse 72 Resp 12 Wt 92.1 kg (203 lb) SpO2 92% BMI 30.87 kg/m? General Appearance: Well appearing, alert, in no acute distress, well-hydrated, well nourished.. Skin: LE erythematous from just below knee to ankle without warmth to touch or TTP. Erythema wraps around side of calf bilaterally. Flaking skin without drainage or discharge. Lungs: Decreased lung sounds throughout due to poor air intake and wide chest. Heart: Negative findings: no murmurs, clicks, or gallops, Positive findings: irregularly irregular rhythm. Abdomen: Normal abdominal exam, Negative findings: no masses palpable, no organomegaly, soft, and aorta normal, Positive findings: tenderness moderate epigastric without guarding or rebound. Extremities: no edema, tubigrips in place. Health Maintenance List DAMION/ARB MED PRESCRIBED due on 06/23/2018 DILATED RETINAL EXAM due on 10/27/2018 STATIN MED ADHERENCE due on 11/18/2018 DIABETES MED ADHERENCE due on 11/18/2018 DIABETIC FOOT EXAM due on 01/31/2019 HBA1C due on 02/02/2019 LDL CHOLESTEROL due on 05/25/2019 COLORECTAL CANCER SCREENING,SEE MODIFIER due on 07/05/2019 SERUM CREATININE due on 09/23/2019 HEMOGLOBIN/HEMATOCRIT due on 09/23/2019 ANNUAL PCP TEAM CHRONIC DISEASE VISIT due on 10/06/2019 BP CONTROLLED (<130/80) due on 11/02/2019 DTAP,TDAP,TD(2 - Td) due on 07/05/2028 BONE DENSITY Completed ADULT PREVNAR-13 Completed INFLUENZA Completed PNEUMOVAX AGE 65 AND OVER WITH 5YR LOOKBACK Completed Data reviewed Component Latest Ref Rng AND Units 06/30/2018 06/30/2018 08/04/2018 08/05/2018 09/23/2018 11/03/2018 9:45 AM 9:45 AM WBC 3.70 - 11.00 k/uL 8.10 6.04 RBC 3.90 - 5.20 m/uL 3.67 (L) 3.52 (L) Hemoglobin 11.5 - 15.5 g/dL 11.4 (L) 10.9 (L) Hematocrit 36.0 - 46.0 % 36.9 35.2 (L) MCV 80.0 - 100.0 fL 100.5 (H) 100.0 MCH 26.0 - 34.0 pG 31.1 31.0 MCHC 30.5 - 36.0 g/dL 30.9 31.0 RDW-CV 11.5 - 15.0 % 14.2 14.3 Platelet Count 150 - 400 k/uL 160 116 (L) MPV 9.0 - 12.7 fL 9.8 9.6 Neut% % 71.4 Abs Neut (ANC) 1.45 - 7.50 k/uL 5.78 Lymph% % 15.9 Abs Lymph 1.00 - 4.00 k/uL 1.29 Stoddard% % 9.9 Abs Stoddard <0.87 k/uL 0.80 Eosin% % 2.2 Abs Eosin <0.46 k/uL 0.18 Baso% % 0.6 Abs Baso <0.11 k/uL 0.05 Nucleated Reds 0 /100 WBC 0.0 Absolute nRBC <0.01 k/uL <0.01 Diff Type Auto Diff Protein, Total 6.3 - 8.0 g/dL 7.2 Albumin 3.9 - 4.9 g/dL 3.4 (L) 3.1 (L) Calcium 8.5 - 10.2 mg/dL 9.5 9.5 8.4 (L) Bilirubin, Total 0.2 - 1.3 mg/dL 0.5 Alkaline Phosphatase 34 - 123 U/L 98 AST 13 - 35 U/L 14 Glucose 74 - 99 mg/dL 106 (H) 157 (H) 88 BUN 7 - 21 mg/dL 23 (H) 32 (H) 34 (H) Creatinine 0.58 - 0.96 mg/dL 4.15 (H) 4.16 (H) 4.36 (H) 5.46 (H) Sodium 136 - 144 mmol/L 137 138 139 Potassium 3.7 - 5.1 mmol/L 4.7 3.7 4.1 Chloride 97 - 105 mmol/L 93 (L) 93 (L) 95 (L) CO2 22 - 30 mmol/L 32 (H) 28 31 (H) Anion Gap 9 - 18 mmol/L 12 17 13 ALT 7 - 38 U/L 16 10 eGFR- 13 13 12 9 eGFR-All Other Races . 10 10 10 8 Phosphorus 2.7 - 4.8 mg/dL 6.5 (H) Hemoglobin A1C 4.3 - 5.6 % 6.3 (H) Estimated Average Glucose mg/dL 134 TSH 0.400 - 5.500 uU/mL 2.080 Occult Blood, Stool Negative Positive (A) Hemoglobin A1C (POCT) 4.2 - 5.6 % 5.8 (A) ASSESSMENT/PLAN: 1. 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 - Decrease Lantus to 16 units QPM on nights before dialysis and 24 units all other nights to prevent hypoglycemia with A1C of 5.8. - Blood glucose monitoring on a three times a day schedule - Encouraged regular aerobic exercise and weight loss - Follow up in 3 months, sooner should any other issues arise. - Discussed diabetic education issues of shelter diabetic complications, hypoglycemic symptoms, hyperglycemic symptoms, diet, medications- side effects and need for compliance, importance of exercise, use and side effects of insulin and importance of appointments with Inspector Aide with patient. 2. Diabetic polyneuropathy associated with type 2 diabetes mellitus (HCC) - ICD9: 250.60, 357.2, ICD10: E11.42 Increase Lyrica to 50 mg daily with additional 25 mg after dialysis. - PREGABALIN 25 MG CAPSULE - HEMOGLOBIN A1C (POC) - PREGABALIN 25 MG CAPSULE 3. Atrial fibrillation, unspecified type (HCC) - ICD9: 427.31, ICD10: I48.91 Rate controlled on amiodarone. F/u with cardiology as scheduled. Restart Eliquis and will monitor CBC as hematoma has resolved, had negative EGD and colonoscopy for bleeding, and has no upcoming surgery scheduled. - APIXABAN 5 MG TABLET 4. Coronary artery disease, angina presence unspecified, unspecified vessel or lesion type, unspecified whether rincon or transplanted heart - ICD9: 414.00, ICD10: I25.10 Asymptomatic. Continue current regimen. F/u with cardiology. 5. Chronic obstructive pulmonary disease, unspecified COPD type (HCC) - ICD9: 496, ICD10: J44.9 Continue oxygen daily. Use nebulizer PRN. 6. Gastroesophageal reflux disease, esophagitis presence not specified - ICD9: 530.81, ICD10: K21.9 Continue Protonix, add zantac. GERD diet. Call in 1 week with update. 7. Epigastric pain - ICD9: 789.06, ICD10: R10.13 See above. - RANITIDINE 150 MG TABLET 8. Hypertension - ICD9: 401.9, ICD10: I10 - good control - Continue current medication(s) - Encouraged dietary sodium restriction/DASH diet - Recommended regular aerobic exercise. - Reviewed risks of HTN and principles of treatment - Goal of BP <140/90 9. Hyperlipidemia, unspecified hyperlipidemia type - ICD9: 272.4, ICD10: E78.5 - good control - Continue current medication. - Encouraged following a low fat, low cholesterol diet. - Discussed the benefits of regular aerobic exercise and weight loss. 10. ESRD on dialysis (HCC) - ICD9: 585.6, V45.11, ICD10: N18.6, Z99.2 F/u with HD MWF. Recommendations per nephrology. 11. Hypotension, unspecified hypotension type - ICD9: 458.9, ICD10: I95.9 Improved. Continue current regimen. Push PO fluids. 12. Ulcers of both lower extremities, limited to breakdown of skin (HCC) - ICD9: 707.10, ICD10: L97.911, L97.921 Recommendations per wound care. Appointment later today. I spent 40minutes in the visit, with more than 50% of the total [id number] time of the visit in counseling / coordination of care. Jameson Kamara MD Referring Provider: JAMESON KAMARA) [[id number]] Allergies As of Date: 11/03/2018 Noted Allergy Reaction ASPIRIN 01/20/2018 14 - Other: See Comments Comments: Patient states that she bled out every orifice, sts not allowed to take it at all. Patient states she was bleeding out of nose and mouth after one dose. BACTRIM (SULFAMETHOXAZOLE-TRIMETH*05/17/2017 14 - Other: See Comments Comments: My throat swells up. LATEX 05/17/2017 2 - Rash 9 - Itching Comments: Itching and welts. No wheezing or shortness of breath. PENICILLINS 07/14/2004 2 - Rash 9 - Itching Comments: Tolerated ceftriaxone during 11/2017 admission and cefepime during 12/2017 admission TETRACYCLINE 09/29/2010 2 - Rash 8 - GI Upset Comments: Emesis and diarrhea. 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, with long-term current use of insulin ([facility]) [E11.22, N18.6, Z79.4, Z99.2] Other Visit Diagnoses:Diabetic polyneuropathy associated with type 2 diabetes mellitus (HCC) [E11.42] Atrial fibrillation, unspecified type ([facility]) [I48.91] Coronary artery disease, angina presence unspecified, unspecified vessel or lesion type, unspecified whether rincon or transplanted heart [I25.10] Chronic obstructive pulmonary disease, unspecified COPD type ([facility]) [J44.9] Gastroesophageal reflux disease, esophagitis presence not specified [K21.9] Epigastric pain [R10.13] Hypertension [I10] Hyperlipidemia, unspecified hyperlipidemia type [E78.5] ESRD on dialysis (HCC) [N18.6, Z99.2] Hypotension, unspecified hypotension type [I95.9] Ulcers of both lower extremities, limited to breakdown of skin ([facility]) [L97.911, L97.921] Order(s):HEMOGLOBIN A1C (POC) [1850619] Order #: [id number]. #:[id number] insulin glargine (LANTUS SOLOSTAR U-100 INSULIN) 100 unit/mL (3 mL) inpnNight before dialysis (Sun, Tues and Thurs) pt is to take Lantus 16 units The other nights, (-Wed) pt is to take 24 units Lantus.Disp: Rfl: pregabalin (LYRICA) 25 mg capsuleTake 2 tablet PO daily with an additional 1 tablet PO after dialysis MWFDisp: 75 capsuleRfl: 2 apixaban (ELIQUIS) 5 mg tab(s)Take 1 tablet by mouth twice daily.Disp: 60 tabletRfl: 5 ranitidine (ZANTAC) 150 mg tabletTake 1 tablet by mouth twice daily.Disp: 60 tabletRfl: 2 Prescriptions as of 11/03/2018 Sig: INSULIN GLARGINE (U-100) 100 * Night before dialysis (Sun, T* PREGABALIN 25 MG CAPSULE Take 2 tablet PO daily with a* APIXABAN 5 MG TABLET Take 1 tablet by mouth twice * RANITIDINE 150 MG TABLET Take 1 tablet by mouth twice * DOCUSATE SODIUM 100 MG CAPSULE Take 1 capsule by mouth twice* ONDANSETRON HCL 4 MG TABLET Take 1 tablet by mouth every * COMPOUNDED PRESCRIPTION Rosalind boots to be worn daily fo* METOCLOPRAMIDE 5 MG TABLET Take 0.5 tablets by mouth thr* AMIODARONE 200 MG TABLET Take 1 tablet by mouth once d* SIMVASTATIN 40 MG TABLET Take 1 tablet by mouth every * ISOSORBIDE MONONITRATE ER 30 * TAKE THREE TABLETS BY MOUTH O* INSULIN ASPART U-100 100 UNI* Using Sliding Scale: 150-209* POLYETHYLENE GLYCOL 3350 17 G* Use 1-2 times daily as needed* PANTOPRAZOLE 40 MG TABLET,DEL* Take 1 tablet by mouth once d* SENNOSIDES 8.6 MG TABLET Take 8.6 mg by mouth once carlos* IPRATROPIUM-ALBUTEROL 0.5 MG-* Inhale 3 mL as instructed leanne* NYSTATIN 100,000 UNIT/GRAM TO* Apply 1 application to affect* NITROGLYCERIN 0.4 MG SUBLINGU* Dissolve 1 tablet under the t* OXYGEN (HOME THERAPY) Inhale 2.5 L/min as instructe* Problem List As Of Date 11/03/2018 Noted Resolved HOCM (hypertrophic obstructive cardiomyopathy) * 01/23/2018 More... SVT (supraventricular tachycardia) (HCC) [I47.1] 01/21/2018 More... Carotid artery disease (HCC) [I77.9] 01/22/2018 CAD (coronary artery disease) [I25.10] More... Hypertension [I10] More... Hyperlipidemia [E78.5] Pneumonia [J18.9] 10/27/2017 More... COPD (chronic obstructive pulmonary disease) (H* More... Sleep apnea [G47.30] More... HH (hiatus hernia) [K44.9] 01/21/2018 GERD (gastroesophageal reflux disease) [K21.9] More... More... Arthritis [M19.90] Numbness and tingling of right leg [R20.0, R20.* 01/21/2018 Depression [F32.9] Atrial fibrillation (HCC) [I48.91] INVALID FOR* More... Controlled type 2 diabetes mellitus with chroni*INVALID FOR* More... More... More... Heart failure, systolic, acute (HCC) [I50.21] INVALID FOR*01/21/2018 More... Obesity [E66.09] INVALID FOR* More... Gout [M10.9] Pacemaker [Z95.0] More... Chronic combined systolic and diastolic CHF (co*INVALID FOR* More... Elevated troponin [R74.8] INVALID FOR*01/22/2018 More... Pulmonary hypertension (HCC) [I27.20] INVALID FOR* Oral thrush [B37.0] INVALID FOR*01/21/2018 Hyponatremia [E87.1] INVALID FOR* More... Hyperkalemia [E87.5] INVALID FOR*01/22/2018 Chest pain in adult [R07.9] INVALID FOR*02/12/2018 More... Acute renal failure superimposed on stage 3 chr*INVALID FOR* More... Obesity, Class II, BMI 35-39.9 [E66.9] INVALID FOR* ESRD on dialysis (HCC) [N18.6, Z99.2] INVALID FOR* More... Chronic hypoxemic respiratory failure (HCC) [J9*INVALID FOR* Bilateral leg ulcer, limited to breakdown of sk*INVALID FOR* ESRD (end stage renal disease) (HCC) [N18.6] INVALID FOR*11/03/2018 More... AV fistula (HCC) [I77.0] INVALID FOR* More... Hypotension [I95.9] INVALID FOR* More... Chronic anticoagulation [Z79.01] INVALID FOR* Prescriptions ordered this encounter Disp Refills Start End PREGABALIN 25 MG CAPSULE 45 c* 2 11/03/2018 11/03/2018 Class: Print RX Sig: Take 1 tablet PO daily with an additional 1 tablet PO after dialysis MWF INSULIN GLARGINE (U-100) 100 UNIT/ML* 11/03/2018 Class: Med Update Sig: Night before dialysis (Sun, Tues and Th) pt is to take Lantus 16 units The other nights, (---Wed) pt is to take 24 units Lantus. PREGABALIN 25 MG CAPSULE 75 c* 2 11/03/2018 02/16/2019 Class: Print RX Sig: Take 2 tablet PO daily with an additional 1 tablet PO after dialysis MWF APIXABAN 5 MG TABLET 60 t* 5 11/03/2018 Route: ORAL Sig: Take 1 tablet by mouth twice daily. RANITIDINE 150 MG TABLET 60 t* 2 11/03/2018 Route: ORAL Sig: Take 1 tablet by mouth twice daily. Medications Discontinued During This Encounter pregabalin (LYRICA) 25 mg capsule 45 c* 2 10/06/2018 11/03/2018 Class: Print RX Sig: Take 1 tablet PO daily with an additional 1 tablet PO after dialysis MWF Disc: Reason for discontinue is not on file. hydrOXYzine HCl (ATARAX) 25 mg tablet 30 t* 0 09/17/2018 11/03/2018 Route: ORAL Sig: Take 1 tablet by mouth every 12 hours as needed for Itching/Rash. Disc: Reason for discontinue is not on file. guaiFENesin-dextromethorphan (ROBITU* 118 * 0 12/15/2017 11/03/2018 Class: Print RX Route: ORAL Sig: Take 5-10 mL by mouth every 6 hours as needed for Cough. Disc: Reason for discontinue is not on file. insulin glargine (LANTUS SOLOSTAR U-* 10 P* 1 07/21/2018 11/03/2018 Route: SUBCUTANEOUS Sig: Inject 50 Units subcutaneously every morning. Disc: Reason for discontinue is not on file. insulin glargine (LANTUS SOLOSTAR U-* 10/06/2018 11/03/2018 Class: Med Update Sig: Night before dialysis (Sun, Tues and Th) pt is to take Lantus 18 units The other nights, (M-W-F-Sat) pt is to take 28 units Lantus. Disc: Reason for discontinue is not on file. pregabalin (LYRICA) 25 mg capsule 45 c* 2 11/03/2018 11/03/2018 Class: Print RX Sig: Take 1 tablet PO daily with an additional 1 tablet PO after dialysis MWF Disc: Reason for discontinue is not on file. budesonide (PULMICORT) 0.5 mg/2 mL n* 60 V* 5 03/17/2018 11/03/2018 Class: Print RX Route: NEBULIZATION -UNSPEC Sig: Use 2 mL via nebulizer once daily. INHALE 2 ML BY NEBULIZER OVER 5-15 MINUTES EVERY 12 HOURS. Disc: Reason for discontinue is not on file. silver sulfADIAZINE (SILVADENE,THERM* 25 g 1 09/17/2018 11/03/2018 Class: In Office Route: TOPICAL Sig: Apply 1 application to affected area once daily. Disc: Reason for discontinue is not on file. Disposition: Return in about 3 months (around 02/01/2019). Follow-up and Disposition History Recorded Encounter Status:Closed by JAMESON KAMARA MD on 11/03/18 PROGRESS Observed: 10/28/2018 Status: COMPLETED Source: [place] 3:42 PM [facility] [place] REPOSITORY O ID: [id number] Author: Remi (Rn) Brent Service: (none) Author Type: Registered Nurse Type: Progress Notes Filed: 10/28/2018 4:31 PM Note Text: PRIMARY CARE COORDINATION FOLLOW-UP NOTE Provider Action/FYI FYI Discussed w/ PCP Patient identified by name and date of . YES Spoke to Octavia griffin Summary: TC to [facility] at [facility], left message informing of PCP's instructions below and asked HH nurse to please reinforce following diabetic diet, continue current insulin dose. PT to finish Flagyl taking it TID. Pt is to reschedule [facility] appt, dgt states appt is next at 1:00. PCP also wants HH nurse to wrap legs with DAMION wraps, dgt states she's unsure pt will allow nurse to wrap legs with DAMION because they are too tight. TC to patient's daughter, instructed on PCP's instructions below. Reinforced pt is to continue same dose of insulin but watch diet closer. Instructed to complete Flagyl as directed. Dgt states she's been александр to get two doses into patient because she is sleeping so much. Dgt thinks pt may be worn out from dialysis. Asked if she wakes patient to make sure she is taking her medications, dgt states yes, that's what I'm going to have to do. Instructed dgt needs to reschedule appt with [facility], states it is rescheduled for at 1:00. Instructed PCP recommends pt allow HH nurse to apply DAMION wraps to help wounds healed. Daughter unsure pt will allow DAMION wraps Watermelon Inspector plan for next outreach: Will follow up 3 weeks Signature Remi Kennedy RN October 28, 2018 PROGRESS Observed: 10/27/2018 Status: COMPLETED Source: [place] 12:52 PM [facility] REPOSITORY HNO ID: [id number] Author: Jameson Kamara Service: (none) Author Type: Physician Type: Progress Notes Filed: 10/27/2018 12:53 PM Note Text: Variable glucose readings with single borderline low reading. Recommend she follow diabetic diet and continue current regimen. Finish abx as prescribed. Needs to follow up with wound center. If wounds not healing can lead to worsening infection and even . Continue topicals and wraps as recommended by home nursing PROGRESS Observed: 10/27/2018 Status: COMPLETED Source: [place] 11:56 AM [facility] REPOSITORY HNO ID: [id number] Author: Remi Briseno) Brent Service: (none) Author Type: Registered Nurse Type: Progress Notes Filed: 10/27/2018 12:10 PM Note Text: PRIMARY CARE COORDINATION FOLLOW-UP NOTE Provider Action/FYI Call from Home Health nurse: See BS. Pt verbalized correct dose of insulin Cipro x 10 day ordered on 10/06 is just finishing today because pt isn't taking correctly Flagyl TID x 10 days ordered on 10/06-pt didn't take last two evening doses and has Flagyl pre-filled in her meds through all next week Pt did not go to Wound Center appt, pt states she was at dialysis but daughter states she forgot. (Pt and daughter had been instructed by PCC and HH nurse, in past week, not to miss that appt.) HH nurse states lower legs today are very red, irritated and dry. She applied Ca Alginate to open areas, Zinc to intact skin and wrapped with gauze. Pt will not allow nurse to apply any compression wraps. Patient identified by name and date of . YES Spoke to Li nurse at [facility] Summary: Luz Baca is a 78 year old female who reports glucose readings as noted. DATE 10/27 10/25 10/23 10/22 10/20 10/19 10/16 10/15 10/13 Fasting 132 72 103 137 180 163 142 HS 239 3:30 AM 155 Any low blood sugars during this period of reporting No Patient's diabetes medications as follows: SOLOSTAR U-100 INSULIN) Inject 50 Units subcutaneously every morning. insulin glargine (LANTUS SOLOSTAR U-100 INSULIN) Night before dialysis (Wed, and ) take 18 units The other nights, () pt is to take 28 units Lantus. insulin aspart U-100 (NOVOLOG FLEXPEN U-100 INSULIN) Using Sliding Scale: 150-209 1 unit, 210-269 2 units, 270-329 3 units, 330-389 4 units, 390-449 5 units insulin glargine (LANTUS Watermelon Inspector plan for next outreach: Will follow up 3 weeks Signature Remi Kennedy RN October 27, 2018 CNPTOUTREACH Observed: 10/27/2018 Status: COMPLETED Source: [place] 12:00 AM [facility] REPOSITORY Patient Outreach (FAMPWS) LUZ BACA ([id number]) 1940 F Date Time Provider Department 10/27/18 REMI KENNEDY (ALLYSON) ANTOINE During your visit today, we recorded the following information about you: Remi Kennedy RN 10/27/2018 12:10 PM Signed PRIMARY CARE COORDINATION FOLLOW-UP NOTE Provider Action/FYI Call from Home Health nurse: See BS. Pt verbalized correct dose of insulin Cipro x 10 day ordered on 10/06 is just finishing today because pt isn't taking correctly Flagyl TID x 10 days ordered on 10/06-pt didn't take last two evening doses and has Flagyl pre-filled in her meds through all next week Pt did not go to Wound Center appt, pt states she was at dialysis but daughter states she forgot. (Pt and daughter had been instructed by PCC and nurse, in past week, not to miss that appt.) HH nurse states lower legs today are very red, irritated and dry. She applied Ca Alginate to open areas, Zinc to intact skin and wrapped with gauze. Pt will not allow nurse to apply any compression wraps. Patient identified by name and date of . YES Spoke to nurse Li at [facility] Summary: Luz Baca is a 78 year old female who reports glucose readings as noted. DATE 10/27 10/25 10/23 10/22 10/20 10/19 10/16 10/15 10/13 Fasting 132 72 103 137 180 163 142 HS 239 3:30 AM 155 Any low blood sugars during this period of reporting No Patient's diabetes medications as follows: SOLOSTAR U-100 INSULIN) Inject 50 Units subcutaneously every morning. insulin glargine (LANTUS SOLOSTAR U-100 INSULIN) Night before dialysis (Wed, and ) take 18 units The other nights, (---Wed) pt is to take 28 units Lantus. insulin aspart U-100 (NOVOLOG FLEXPEN U-100 INSULIN) Using Sliding Scale: 150-209 1 unit, 210-269 2 units, 270-329 3 units, 330-389 4 units, 390-449 5 units insulin glargine (LANTUS Watermelon Inspector plan for next outreach: Will follow up 3 weeks Signature Remi Kennedy RN October 27, 2018 Jameson Kamara MD 10/27/2018 12:53 PM Signed Variable glucose readings with single borderline low reading. Recommend she follow diabetic diet and continue current regimen. Finish abx as prescribed. Needs to follow up with wound center. If wounds not healing can lead to worsening infection and even . Continue topicals and wraps as recommended by home nursing Remi Kennedy RN 10/28/2018 4:31 PM Signed PRIMARY CARE COORDINATION FOLLOW-UP NOTE Provider Action/ALBERT PRICE Discussed w/ PCP Patient identified by name and date of . YES Spoke to daughterOctavia Summary: TC to Kennedi at [facility], left message informing of PCP's instructions below and asked HH nurse to please reinforce following diabetic diet, continue current insulin dose. PT to finish Flagyl taking it TID. Pt is to reschedule Wound Center appt, dgt states appt is next at 1:00. PCP also wants HH nurse to wrap legs with DAMION wraps, dgt states she's unsure pt will allow nurse to wrap legs with DAMION because they are too tight. TC to patient's daughter, instructed on PCP's instructions below. Reinforced pt is to continue same dose of insulin but watch diet closer. Instructed to complete Flagyl as directed. Dgt states she's been александр to get two doses into patient because she is sleeping so much. Dgt thinks pt may be worn out from dialysis. Asked if she wakes patient to make sure she is taking her medications, dgt states yes, that's what I'm going to have to do. Instructed dgt needs to reschedule appt with Wound Center, states it is rescheduled for at 1:00. Instructed PCP recommends pt allow HH nurse to apply DAMION wraps to help wounds healed. Daughter unsure pt will allow DAMION wraps Watermelon Inspector plan for next outreach: Will follow up 3 weeks Signature Remi Kennedy RN October 28, 2018 Allergies As of Date: 10/27/2018 Noted Allergy Reaction ASPIRIN 01/20/2018 14 - Other: See Comments Comments: Patient states that she bled out every orifice, sts not allowed to take it at all. Patient states she was bleeding out of nose and mouth after one dose. BACTRIM (SULFAMETHOXAZOLE-TRIMETH*05/17/2017 14 - Other: See Comments Comments: My throat swells up. LATEX 05/17/2017 2 - Rash 9 - Itching Comments: Itching and welts. No wheezing or shortness of breath. PENICILLINS 07/14/2004 2 - Rash 9 - Itching Comments: Tolerated ceftriaxone during 11/2017 admission and cefepime during 12/2017 admission TETRACYCLINE 09/29/2010 2 - Rash 8 - GI Upset Comments: Emesis and diarrhea. 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] Prescriptions as of 10/27/2018 Sig: DOCUSATE SODIUM 100 MG CAPSULE Take 1 capsule by mouth twice* PREGABALIN 25 MG CAPSULE Take 1 tablet PO daily with a* INSULIN GLARGINE (U-100) 100 * Night before dialysis ([place], T* ONDANSETRON HCL 4 MG TABLET Take 1 tablet by mouth every * COMPOUNDED PRESCRIPTION Rosalind boots to be worn daily fo* METOCLOPRAMIDE 5 MG TABLET Take 0.5 tablets by mouth thr* SILVER SULFADIAZINE 1 % TOPIC* Apply 1 application to affect* HYDROXYZINE HCL 25 MG TABLET Take 1 tablet by mouth every * AMIODARONE 200 MG TABLET Take 1 tablet by mouth once d* SIMVASTATIN 40 MG TABLET Take 1 tablet by mouth every * ISOSORBIDE MONONITRATE ER 30 * TAKE THREE TABLETS BY MOUTH O* INSULIN ASPART U-100 100 UNI* Using Sliding Scale: 150-209* INSULIN GLARGINE (U-100) 100 * Inject 50 Units subcutaneousl* POLYETHYLENE GLYCOL 3350 17 G* Use 1-2 times daily as needed* PANTOPRAZOLE 40 MG TABLET,DEL* Take 1 tablet by mouth once d* SENNOSIDES 8.6 MG TABLET Take 8.6 mg by mouth once carlos* IPRATROPIUM-ALBUTEROL 0.5 MG-* Inhale 3 mL as instructed leanne* BUDESONIDE 0.5 MG/2 ML SUSPEN* Use 2 mL via nebulizer once d* NYSTATIN 100,000 UNIT/GRAM TO* Apply 1 application to affect* DEXTROMETHORPHAN-GUAIFENESIN * Take 5-10 mL by mouth every 6* NITROGLYCERIN 0.4 MG SUBLINGU* Dissolve 1 tablet under the t* OXYGEN (HOME THERAPY) Inhale 2.5 L/min as instructe* Problem List As Of Date 10/27/2018 Noted Resolved HOCM (hypertrophic obstructive cardiomyopathy) * 01/23/2018 More... SVT (supraventricular tachycardia) (HCC) [I47.1] 01/21/2018 More... Carotid artery disease (HCC) [I77.9] 01/22/2018 CAD (coronary artery disease) [I25.10] More... Hypertension [I10] More... Hyperlipidemia [E78.5] Pneumonia [J18.9] 10/27/2017 More... COPD (chronic obstructive pulmonary disease) (H* More... Sleep apnea [G47.30] More... HH (hiatus hernia) [K44.9] 01/21/2018 GERD (gastroesophageal reflux disease) [K21.9] More... More... Arthritis [M19.90] Numbness and tingling of right leg [R20.0, R20.* 01/21/2018 Depression [F32.9] Atrial fibrillation (HCC) [I48.91] INVALID FOR* More... Controlled type 2 diabetes mellitus with chroni*INVALID FOR* More... More... More... Heart failure, systolic, acute (HCC) [I50.21] INVALID FOR*01/21/2018 More... Obesity [E66.09] INVALID FOR* More... Gout [M10.9] Pacemaker [Z95.0] More... Chronic combined systolic and diastolic CHF (co*INVALID FOR* More... Elevated troponin [R74.8] INVALID FOR*01/22/2018 More... Pulmonary hypertension (HCC) [I27.20] INVALID FOR* Oral thrush [B37.0] INVALID FOR*01/21/2018 Hyponatremia [E87.1] INVALID FOR* More... Hyperkalemia [E87.5] INVALID FOR*01/22/2018 Chest pain in adult [R07.9] INVALID FOR*02/12/2018 More... Acute renal failure superimposed on stage 3 chr*INVALID FOR* More... Obesity, Class II, BMI 35-39.9 [E66.9] INVALID FOR* ESRD on dialysis (HCC) [N18.6, Z99.2] INVALID FOR* More... Chronic hypoxemic respiratory failure (HCC) [J9*INVALID FOR* Bilateral leg ulcer, limited to breakdown of sk*INVALID FOR* ESRD (end stage renal disease) (HCC) [N18.6] INVALID FOR* More... AV fistula (HCC) [I77.0] INVALID FOR* More... Hypotension [I95.9] INVALID FOR* More... Chronic anticoagulation [Z79.01] INVALID FOR* Encounter Status:Closed by REMI KENNEDY on 10/28/18 PROGRESS Observed: 10/26/2018 Status: COMPLETED Source: [place] 10:41 AM [facility] REPOSITORY HNO ID: [id number] Author: Jameson Adams) Koffi Service: (none) Author Type: Physician Type: Progress Notes Filed: 10/26/2018 10:41 AM Note Text: Reviewed. Will await follow up in 1 week. PROGRESS Observed: 10/26/2018 Status: COMPLETED Source: [place] 9:39 AM [facility] REPOSITORY HNO ID: [id number] Author: Remi Briseno) Brent Service: (none) Author Type: Registered Nurse Type: Progress Notes Filed: 10/26/2018 10:21 AM Note Text: PRIMARY CARE COORDINATION FOLLOW-UP NOTE Provider Action/FYI nurse will get BS results from home meter and ask pt what dose of Lantus she is taking and will call to PCC. Home Health states they find patient to be very non-compliant and if she doesn't cooperate and comply with MD orders home health will have to discharge after this certification period. Patient identified by name and date of . YES Spoke to Kennedi at [facility] Summary: Asked Kennedi to have HH nurse check patient's glucose meter at next home visit and call BS to PCC. Also asked for nurse to ask patient how much insulin she is taking because she has been taking incorrect dose of Lantus in the past. Reviewed Lantus AM and PM dosing. Kennedi states patient is very non-compliant in a passive aggressive manor. Watermelon Inspector plan for next outreach: Will follow up one week Signature Remi Kennedy RN October 26, 2018 CNPTOUTREACH Observed: 10/26/2018 Status: COMPLETED Source: [place] 12:00 AM [facility] REPOSITORY Patient Outreach (FAMPWS) BACALUZ ([id number]) 1940 F Date Time Provider Department 10/26/18 REMI KENNEDY (RN) NAVINPWS During your visit today, we recorded the following information about you: Remi Kennedy RN 10/26/2018 10:21 AM Signed PRIMARY CARE COORDINATION FOLLOW-UP NOTE Provider Action/FYI HH nurse will get BS results from home meter and ask pt what dose of Lantus she is taking and will call to PCC. Home Health states they find patient to be very non-compliant and if she doesn't cooperate and comply with MD orders home health will have to discharge after this certification period. Patient identified by name and date of . YES Spoke to Kennedi at [facility] Summary: Asked Kennedi to have HH nurse check patient's glucose meter at next home visit and call BS to PCC. Also asked for nurse to ask patient how much insulin she is taking because she has been taking incorrect dose of Lantus in the past. Reviewed Lantus AM and PM dosing. Kennedi states patient is very non-compliant in a passive aggressive manor. Watermelon Inspector plan for next outreach: Will follow up one week Signature Remi Kennedy RN October 26, 2018 Jameson Kamara MD 10/26/2018 10:41 AM Signed Reviewed. Will await follow up in 1 week. Allergies As of Date: 10/26/2018 Noted Allergy Reaction ASPIRIN 01/20/2018 14 - Other: See Comments Comments: Patient states that she bled out every orifice, sts not allowed to take it at all. Patient states she was bleeding out of nose and mouth after one dose. BACTRIM (SULFAMETHOXAZOLE-TRIMETH*05/17/2017 14 - Other: See Comments Comments: My throat swells up. LATEX 05/17/2017 2 - Rash 9 - Itching Comments: Itching and welts. No wheezing or shortness of breath. PENICILLINS 07/14/2004 2 - Rash 9 - Itching Comments: Tolerated ceftriaxone during 11/2017 admission and cefepime during 12/2017 admission TETRACYCLINE 09/29/2010 2 - Rash 8 - GI Upset Comments: Emesis and diarrhea. 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] Prescriptions as of 10/26/2018 Sig: DOCUSATE SODIUM 100 MG CAPSULE Take 1 capsule by mouth twice* PREGABALIN 25 MG CAPSULE Take 1 tablet PO daily with a* INSULIN GLARGINE (U-100) 100 * Night before dialysis (Sun, T* ONDANSETRON HCL 4 MG TABLET Take 1 tablet by mouth every * COMPOUNDED PRESCRIPTION Rosalind boots to be worn daily fo* METOCLOPRAMIDE 5 MG TABLET Take 0.5 tablets by mouth thr* SILVER SULFADIAZINE 1 % TOPIC* Apply 1 application to affect* HYDROXYZINE HCL 25 MG TABLET Take 1 tablet by mouth every * AMIODARONE 200 MG TABLET Take 1 tablet by mouth once d* SIMVASTATIN 40 MG TABLET Take 1 tablet by mouth every * ISOSORBIDE MONONITRATE ER 30 * TAKE THREE TABLETS BY MOUTH O* INSULIN ASPART U-100 100 UNI* Using Sliding Scale: 150-209* INSULIN GLARGINE (U-100) 100 * Inject 50 Units subcutaneousl* POLYETHYLENE GLYCOL 3350 17 G* Use 1-2 times daily as needed* PANTOPRAZOLE 40 MG TABLET,DEL* Take 1 tablet by mouth once d* SENNOSIDES 8.6 MG TABLET Take 8.6 mg by mouth once carlos* IPRATROPIUM-ALBUTEROL 0.5 MG-* Inhale 3 mL as instructed leanne* BUDESONIDE 0.5 MG/2 ML SUSPEN* Use 2 mL via nebulizer once d* NYSTATIN 100,000 UNIT/GRAM TO* Apply 1 application to affect* DEXTROMETHORPHAN-GUAIFENESIN * Take 5-10 mL by mouth every 6* NITROGLYCERIN 0.4 MG SUBLINGU* Dissolve 1 tablet under the t* OXYGEN (HOME THERAPY) Inhale 2.5 L/min as instructe* Problem List As Of Date 10/26/2018 Noted Resolved HOCM (hypertrophic obstructive cardiomyopathy) * 01/23/2018 More... SVT (supraventricular tachycardia) (HCC) [I47.1] 01/21/2018 More... Carotid artery disease (HCC) [I77.9] 01/22/2018 CAD (coronary artery disease) [I25.10] More... Hypertension [I10] More... Hyperlipidemia [E78.5] Pneumonia [J18.9] 10/27/2017 More... COPD (chronic obstructive pulmonary disease) (H* More... Sleep apnea [G47.30] More... HH (hiatus hernia) [K44.9] 01/21/2018 GERD (gastroesophageal reflux disease) [K21.9] More... More... Arthritis [M19.90] Numbness and tingling of right leg [R20.0, R20.* 01/21/2018 Depression [F32.9] Atrial fibrillation (HCC) [I48.91] INVALID FOR* More... Controlled type 2 diabetes mellitus with chroni*INVALID FOR* More... More... More... Heart failure, systolic, acute (HCC) [I50.21] INVALID FOR*01/21/2018 More... Obesity [E66.09] INVALID FOR* More... Gout [M10.9] Pacemaker [Z95.0] More... Chronic combined systolic and diastolic CHF (co*INVALID FOR* More... Elevated troponin [R74.8] INVALID FOR*01/22/2018 More... Pulmonary hypertension (HCC) [I27.20] INVALID FOR* Oral thrush [B37.0] INVALID FOR*01/21/2018 Hyponatremia [E87.1] INVALID FOR* More... Hyperkalemia [E87.5] INVALID FOR*01/22/2018 Chest pain in adult [R07.9] INVALID FOR*02/12/2018 More... Acute renal failure superimposed on stage 3 chr*INVALID FOR* More... Obesity, Class II, BMI 35-39.9 [E66.9] INVALID FOR* ESRD on dialysis (HCC) [N18.6, Z99.2] INVALID FOR* More... Chronic hypoxemic respiratory failure (HCC) [J9*INVALID FOR* Bilateral leg ulcer, limited to breakdown of sk*INVALID FOR* ESRD (end stage renal disease) (HCC) [N18.6] INVALID FOR* More... AV fistula (HCC) [I77.0] INVALID FOR* More... Hypotension [I95.9] INVALID FOR* More... Chronic anticoagulation [Z79.01] INVALID FOR* Encounter Status:Closed by SEAN HAN MA on 10/26/18 PROGRESS Observed: 10/24/2018 Status: COMPLETED Source: [place] 8:37 PM [facility] REPOSITORY HNO ID: [id number] Author: Jameson Adams) Koffi Service: (none) Author Type: Physician Type: Progress Notes Filed: 10/24/2018 8:37 PM Note Text: Reviewed and agree. PROGRESS Observed: 10/24/2018 Status: COMPLETED Source: [place] 10:14 AM [facility] REPOSITORY HNO ID: [id number] Author: Remi OsheaRn) Brent Service: (none) Author Type: Registered Nurse Type: Progress Notes Filed: 10/24/2018 5:21 PM Note Text: PRIMARY CARE COORDINATION FOLLOW-UP NOTE Provider Action/I TC to patient to ask for BS for past week. Pt states she hasn't been writing them down. She thought she'd just bring he meter into next PCP appt. Asked where BS have been running, states 200. Instructed to write BS down and PCC will call back for BS on Wednesday. Patient identified by name and date of . YES Spoke to JOSS Jefferson nurse, [facility] Care Gap: No Damion or ARB with CHF Dx. Pt has intolerance to DAMION/ARB (CRF) per Dr. Pete Cardona, Aviation Medicine Specialist Summary: TC to patient, left message to please call PCC back with last week of blood sugar readings and to discuss pt's legs. TC to [facility], states they don't have Zinc Oxide cream. Everything they have with Zinc Oxide also has multiple other ingredients. TC from Home Health nurse, Li, just made visit to patient. They bought [place] Salve because pharmacy didn't have Zinc Oxide cream. States LE had no open areas but skin is very dry and red. Nurse thinks [place] Sal[place] dried patient's skin. The only other thing they had in the house was Gold Quesada Diabetic Cream so nurse applied that and wrapped legs in gauze. Pt would not let home health nurse apply any compression. Pt cut off Unna Boots and cut off Damion Wraps because pt states she couldn't tolerate them. Michaeles pt has appt with Wound Center on 10/27. Home Health nurse instructed pt Do Not Cancel Wound Center appt. Watermelon Inspector plan for next outreach: Will follow up one week Signature Remi Kennedy RN October 24, 2018 ELÍASTOUTREACH Observed: 10/24/2018 Status: COMPLETED Source: [place] 12:00 AM [facility] REPOSITORY Patient Outreach (FAMPWS) LUZ BACA ([id number]) 1940 F Date Time Provider Department 10/24/18 REMI KENNEDY (RN) FAMPWS During your visit today, we recorded the following information about you: Remi Kennedy RN 10/24/2018 5:21 PM Signed PRIMARY CARE COORDINATION FOLLOW-UP NOTE Provider Action/FYI FYI TC to patient to ask for BS for past week. Pt states she hasn't been writing them down. She thought she'd just bring he meter into next PCP appt. Asked where BS have been running, states 200. Instructed to write BS down and PCC will call back for BS on Wednesday. Patient identified by name and date of . YES Spoke to Li nurse, [facility] Care Gap: No Damion or ARB with CHF Dx. Pt has intolerance to DAMION/ARB (CRF) per Dr. Pete Cardona, Aviation Medicine Specialist Summary: TC to patient, left message to please call PCC back with last week of blood sugar readings and to discuss pt's legs. TC to [facility], states they don't have Zinc Oxide cream. Everything they have with Zinc Oxide also has multiple other ingredients. TC from Home Health nurse, Li, just made visit to patient. They bought [place] Sal[place] because pharmacy didn't have Zinc Oxide cream. States LE had no open areas but skin is very dry and red. Nurse thinks [place] Sal[place] dried patient's skin. The only other thing they had in the house was Gold [place] Diabetic Cream so HH nurse applied that and wrapped legs in gauze. Pt would not let home health nurse apply any compression. Pt cut off Unna Boots and cut off Damion Wraps because pt states she couldn't tolerate them. [place] pt has appt with Wound Center on 10/27. Home Health nurse instructed pt Do Not Cancel Wound Center appt. Watermelon Inspector plan for next outreach: Will follow up one week Signature Remi Kennedy RN October 24, 2018 Allergies As of Date: 10/24/2018 Noted Allergy Reaction ASPIRIN 01/20/2018 14 - Other: See Comments Comments: Patient states that she bled out every orifice, sts not allowed to take it at all. Patient states she was bleeding out of nose and mouth after one dose. BACTRIM (SULFAMETHOXAZOLE-TRIMETH*05/17/2017 14 - Other: See Comments Comments: My throat swells up. LATEX 05/17/2017 2 - Rash 9 - Itching Comments: Itching and welts. No wheezing or shortness of breath. PENICILLINS 07/14/2004 2 - Rash 9 - Itching Comments: Tolerated ceftriaxone during 11/2017 admission and cefepime during 12/2017 admission TETRACYCLINE 09/29/2010 2 - Rash 8 - GI Upset Comments: Emesis and diarrhea. 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] Prescriptions as of 10/24/2018 Sig: DOCUSATE SODIUM 100 MG CAPSULE Take 1 capsule by mouth twice* PREGABALIN 25 MG CAPSULE Take 1 tablet PO daily with a* INSULIN GLARGINE (U-100) 100 * Night before dialysis (Sun, T* ONDANSETRON HCL 4 MG TABLET Take 1 tablet by mouth every * COMPOUNDED PRESCRIPTION Rosalind boots to be worn daily fo* METOCLOPRAMIDE 5 MG TABLET Take 0.5 tablets by mouth thr* SILVER SULFADIAZINE 1 % TOPIC* Apply 1 application to affect* HYDROXYZINE HCL 25 MG TABLET Take 1 tablet by mouth every * AMIODARONE 200 MG TABLET Take 1 tablet by mouth once d* SIMVASTATIN 40 MG TABLET Take 1 tablet by mouth every * ISOSORBIDE MONONITRATE ER 30 * TAKE THREE TABLETS BY MOUTH O* INSULIN ASPART U-100 100 UNI* Using Sliding Scale: 150-209* INSULIN GLARGINE (U-100) 100 * Inject 50 Units subcutaneousl* POLYETHYLENE GLYCOL 3350 17 G* Use 1-2 times daily as needed* PANTOPRAZOLE 40 MG TABLET,DEL* Take 1 tablet by mouth once d* SENNOSIDES 8.6 MG TABLET Take 8.6 mg by mouth once carlos* IPRATROPIUM-ALBUTEROL 0.5 MG-* Inhale 3 mL as instructed leanne* BUDESONIDE 0.5 MG/2 ML SUSPEN* Use 2 mL via nebulizer once d* NYSTATIN 100,000 UNIT/GRAM TO* Apply 1 application to affect* DEXTROMETHORPHAN-GUAIFENESIN * Take 5-10 mL by mouth every 6* NITROGLYCERIN 0.4 MG SUBLINGU* Dissolve 1 tablet under the t* OXYGEN (HOME THERAPY) Inhale 2.5 L/min as instructe* Problem List As Of Date 10/24/2018 Noted Resolved HOCM (hypertrophic obstructive cardiomyopathy) * 01/23/2018 More... SVT (supraventricular tachycardia) (HCC) [I47.1] 01/21/2018 More... Carotid artery disease (HCC) [I77.9] 01/22/2018 CAD (coronary artery disease) [I25.10] More... Hypertension [I10] More... Hyperlipidemia [E78.5] Pneumonia [J18.9] 10/27/2017 More... COPD (chronic obstructive pulmonary disease) (H* More... Sleep apnea [G47.30] More... HH (hiatus hernia) [K44.9] 01/21/2018 GERD (gastroesophageal reflux disease) [K21.9] More... More... Arthritis [M19.90] Numbness and tingling of right leg [R20.0, R20.* 01/21/2018 Depression [F32.9] Atrial fibrillation (HCC) [I48.91] INVALID FOR* More... Controlled type 2 diabetes mellitus with chroni*INVALID FOR* More... More... More... Heart failure, systolic, acute (HCC) [I50.21] INVALID FOR*01/21/2018 More... Obesity [E66.09] INVALID FOR* More... Gout [M10.9] Pacemaker [Z95.0] More... Chronic combined systolic and diastolic CHF (co*INVALID FOR* More... Elevated troponin [R74.8] INVALID FOR*01/22/2018 More... Pulmonary hypertension (HCC) [I27.20] INVALID FOR* Oral thrush [B37.0] INVALID FOR*01/21/2018 Hyponatremia [E87.1] INVALID FOR* More... Hyperkalemia [E87.5] INVALID FOR*01/22/2018 Chest pain in adult [R07.9] INVALID FOR*02/12/2018 More... Acute renal failure superimposed on stage 3 chr*INVALID FOR* More... Obesity, Class II, BMI 35-39.9 [E66.9] INVALID FOR* ESRD on dialysis (HCC) [N18.6, Z99.2] INVALID FOR* More... Chronic hypoxemic respiratory failure (HCC) [J9*INVALID FOR* Bilateral leg ulcer, limited to breakdown of sk*INVALID FOR* ESRD (end stage renal disease) (HCC) [N18.6] INVALID FOR* More... AV fistula (HCC) [I77.0] INVALID FOR* More... Hypotension [I95.9] INVALID FOR* More... Chronic anticoagulation [Z79.01] INVALID FOR* Encounter Status:Closed by REMI KENNEDY on 10/24/18 PROGRESS Observed: 10/20/2018 Status: COMPLETED Source: [place] 4:47 PM [facility] [place] REPOSITORY HNO ID: [id number] Author: Remi Briseno) Brent Service: (none) Author Type: Registered Nurse Type: Progress Notes Filed: 10/20/2018 4:49 PM Note Text: PRIMARY CARE COORDINATION QUICK NOTE Provider Action/FYI TC to Catarina [facility] nurse, informed Bacitracin was D/C'd when he ordered the Unna boots. Order approved for calcium alginate, zinc cream, soft fluff and Damion wrap. Verbalized understanding and they will fax order for PCP to sign Patient identified by name and date . Remi Kennedy RN October 20, 2018 4:49 PM PROGRESS Observed: 10/20/2018 Status: COMPLETED Source: [place] 2:39 PM [facility] REPOSITORY HNO ID: [id number] Author: Jameson Adams) Koffi Service: (none) Author Type: Physician Type: Progress Notes Filed: 10/20/2018 2:39 PM Note Text: . PROGRESS Observed: 10/20/2018 Status: COMPLETED Source: [place] 2:38 PM [facility] [place] REPOSITORY HNO ID: [id number] Author: Jameson Adams) Koffi Service: (none) Author Type: Physician Type: Progress Notes Filed: 10/20/2018 2:39 PM Note Text: Bacitracin was discontinued when we recommended patient use the Unna boots. Ok to apply calcium alginate and zinc cream to open areas along with Damion wraps for compression. PROGRESS Observed: 10/20/2018 Status: COMPLETED Source: [place] 1:32 PM [facility] REPOSITORY HNO ID: [id number] Author: Remi Briseno) Brent Service: (none) Author Type: Registered Nurse Type: Progress Notes Filed: 10/20/2018 1:42 PM Note Text: PRIMARY CARE COORDINATION FOLLOW-UP NOTE Provider Action/FYI No improvement in LE and open areas look burned per [facility] nurse which she feels is due to Bacitracin. Asking for orders: D/C Bacitracin Apply Calcium Alginate to open areas Apply Zinc Cream to intact skin on legs Wrap legs with soft fluff and Damion wraps for compression Please advise Patient identified by name and date of . YES Summary: Wound nurse from [facility] left message. Pt has no improvement in her legs. Pt cannot tolerate the Unna Boots and keeps cutting them off. Open areas on legs looked burned which nurse has seen before with use of Bacitracin. Nurse would like to D/C Bacitracin Pt is agreeable to nurse placing Calcium Alginate on open areas of both legs Apply Zinc cream to intact skin on legs, wrap with soft fluff and damion wrap for compression Watermelon Inspector plan for next outreach: Will follow up one week Adrianne Kennedy RN October 20, 2018 PROGRESS Observed: 10/20/2018 Status: COMPLETED Source: [place] 10:21 AM [facility] REPOSITORY HNO ID: [id number] Author: Remi (Allyson) Brent Service: (none) Author Type: Registered Nurse Type: Progress Notes Filed: 10/20/2018 1:31 PM Note Text: PRIMARY CARE COORDINATION FOLLOW-UP NOTE Provider Action/FYI FYI Patient identified by name and date of . YES Spoke to Kennedi at [facility] and Valentin at [facility] Summary: TC to Kennedi at [facility], informed Dr. Russell Snider is the provider who wrote for the 3 days of Cipro on 10/03 and PCP would like them to contact her to sign the order, verbalized understanding. TC to Valentin at [facility], asked which doctor wrote a script for pt for Cipro 500 mg Daily x 3 days on 10/03, states it was Dr. Russell Snider. TC to Kennedi at [facility], informed PCP received an order to sign for a 3 day course of Cipro 500 mg on 10/04 and needs order signed by PCP. Informed PCP didn't write the order for ATB. PCC will contact pharmacy and ask who wrote order. PCP asking about faxed Cipro order from [facility], states he didn't write an order for 3 day course of Cipro Watermelon Inspector plan for next outreach: No further follow up needed at this time Adrianne Kennedy RN October 20, 2018 CNPTOUTREACH Observed: 10/20/2018 Status: COMPLETED Source: [place] 12:00 AM [facility] REPOSITORY Patient Outreach (FAMPWS) BACALUZ NAVARRO ([id number]) 1940 F Date Time Provider Department 10/20/18 REMI KENNEDY (RN) ANTOINE During your visit today, we recorded the following information about you: Remi Kennedy RN 10/20/2018 1:31 PM Signed PRIMARY CARE COORDINATION FOLLOW-UP NOTE Provider Action/FYI FYI Patient identified by name and date of . YES Spoke to Kennedi at [facility] and Valentin at [facility] Summary: TC to Kennedi at [facility], informed Dr. Russell Snider is the provider who wrote for the 3 days of Cipro on 10/03 and PCP would like them to contact her to sign the order, verbalized understanding. TC to Valentin at [facility], asked which doctor wrote a script for pt for Cipro 500 mg Daily x 3 days on 10/03, states it was Dr. Russell Snider. TC to Kennedi at [facility], informed PCP received an order to sign for a 3 day course of Cipro 500 mg on 10/04 and needs order signed by PCP. Informed PCP didn't write the order for ATB. PCC will contact pharmacy and ask who wrote order. PCP asking about faxed Cipro order from [facility], states he didn't write an order for 3 day course of Cipro Watermelon Inspector plan for next outreach: No further follow up needed at this time Signature Remi Kennedy RN October 20, 2018 Remi Kennedy RN 10/20/2018 1:42 PM Signed PRIMARY CARE COORDINATION FOLLOW-UP NOTE Provider Action/FYI No improvement in LE and open areas look burned per [facility] nurse which she feels is due to Bacitracin. Asking for orders: D/C Bacitracin Apply Calcium Alginate to open areas Apply Zinc Cream to intact skin on legs Wrap legs with soft fluff and Damion wraps for compression Please advise Patient identified by name and date of . YES Summary: Wound nurse from [facility] left message. Pt has no improvement in her legs. Pt cannot tolerate the Unna Boots and keeps cutting them off. Open areas on legs looked burned which nurse has seen before with use of Bacitracin. Nurse would like to D/C Bacitracin Pt is agreeable to nurse placing Calcium Alginate on open areas of both legs Apply Zinc cream to intact skin on legs, wrap with soft fluff and damion wrap for compression Watermelon Inspector plan for next outreach: Will follow up one week Signature Remi Kennedy RN October 20, 2018 Jameson Kamara MD 10/20/2018 2:39 PM Signed Bacitracin was discontinued when we recommended patient use the Unna boots. Ok to apply calcium alginate and zinc cream to open areas along with Damion wraps for compression. Jameson Kamara MD 10/20/2018 2:39 PM Signed . Remi Kennedy RN 10/20/2018 4:49 PM Signed PRIMARY CARE COORDINATION QUICK NOTE Provider Action/FYI TC to [facility] nurse, informed Bacitracin was D/C'd when he ordered the Unna boots. Order approved for calcium alginate, zinc cream, soft fluff and Damion wrap. Verbalized understanding and they will fax order for PCP to sign Patient identified by name and date . Remi Kennedy RN October 20, 2018 4:49 PM Allergies As of Date: 10/20/2018 Noted Allergy Reaction ASPIRIN 01/20/2018 14 - Other: See Comments Comments: Patient states that she bled out every orifice, sts not allowed to take it at all. Patient states she was bleeding out of nose and mouth after one dose. BACTRIM (SULFAMETHOXAZOLE-TRIMETH*05/17/2017 14 - Other: See Comments Comments: My throat swells up. LATEX 05/17/2017 2 - Rash 9 - Itching Comments: Itching and welts. No wheezing or shortness of breath. PENICILLINS 07/14/2004 2 - Rash 9 - Itching Comments: Tolerated ceftriaxone during 11/2017 admission and cefepime during 12/2017 admission TETRACYCLINE 09/29/2010 2 - Rash 8 - GI Upset Comments: Emesis and diarrhea. 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] Prescriptions as of 10/20/2018 Sig: DOCUSATE SODIUM 100 MG CAPSULE Take 1 capsule by mouth twice* PREGABALIN 25 MG CAPSULE Take 1 tablet PO daily with a* INSULIN GLARGINE (U-100) 100 * Night before dialysis (Sun, T* ONDANSETRON HCL 4 MG TABLET Take 1 tablet by mouth every * COMPOUNDED PRESCRIPTION Rosalind boots to be worn daily fo* METOCLOPRAMIDE 5 MG TABLET Take 0.5 tablets by mouth thr* APIXABAN 5 MG TABLET Take 1 tablet by mouth twice * SILVER SULFADIAZINE 1 % TOPIC* Apply 1 application to affect* HYDROXYZINE HCL 25 MG TABLET Take 1 tablet by mouth every * AMIODARONE 200 MG TABLET Take 1 tablet by mouth once d* SIMVASTATIN 40 MG TABLET Take 1 tablet by mouth every * ISOSORBIDE MONONITRATE ER 30 * TAKE THREE TABLETS BY MOUTH O* INSULIN ASPART U-100 100 UNI* Using Sliding Scale: 150-209* INSULIN GLARGINE (U-100) 100 * Inject 50 Units subcutaneousl* POLYETHYLENE GLYCOL 3350 17 G* Use 1-2 times daily as needed* PANTOPRAZOLE 40 MG TABLET,DEL* Take 1 tablet by mouth once d* SENNOSIDES 8.6 MG TABLET Take 8.6 mg by mouth once carlos* IPRATROPIUM-ALBUTEROL 0.5 MG-* Inhale 3 mL as instructed leanne* BUDESONIDE 0.5 MG/2 ML SUSPEN* Use 2 mL via nebulizer once d* NYSTATIN 100,000 UNIT/GRAM TO* Apply 1 application to affect* DEXTROMETHORPHAN-GUAIFENESIN * Take 5-10 mL by mouth every 6* NITROGLYCERIN 0.4 MG SUBLINGU* Dissolve 1 tablet under the t* OXYGEN (HOME THERAPY) Inhale 2.5 L/min as instructe* Problem List As Of Date 10/20/2018 Noted Resolved HOCM (hypertrophic obstructive cardiomyopathy) * 01/23/2018 More... SVT (supraventricular tachycardia) (HCC) [I47.1] 01/21/2018 More... Carotid artery disease (HCC) [I77.9] 01/22/2018 CAD (coronary artery disease) [I25.10] More... Hypertension [I10] More... Hyperlipidemia [E78.5] Pneumonia [J18.9] 10/27/2017 More... COPD (chronic obstructive pulmonary disease) (H* More... Sleep apnea [G47.30] More... HH (hiatus hernia) [K44.9] 01/21/2018 GERD (gastroesophageal reflux disease) [K21.9] More... More... Arthritis [M19.90] Numbness and tingling of right leg [R20.0, R20.* 01/21/2018 Depression [F32.9] Atrial fibrillation (HCC) [I48.91] INVALID FOR* More... Controlled type 2 diabetes mellitus with chroni*INVALID FOR* More... More... More... Heart failure, systolic, acute (HCC) [I50.21] INVALID FOR*01/21/2018 More... Obesity [E66.09] INVALID FOR* More... Gout [M10.9] Pacemaker [Z95.0] More... Chronic combined systolic and diastolic CHF (co*INVALID FOR* More... Elevated troponin [R74.8] INVALID FOR*01/22/2018 More... Pulmonary hypertension (HCC) [I27.20] INVALID FOR* Oral thrush [B37.0] INVALID FOR*01/21/2018 Hyponatremia [E87.1] INVALID FOR* More... Hyperkalemia [E87.5] INVALID FOR*01/22/2018 Chest pain in adult [R07.9] INVALID FOR*02/12/2018 More... Acute renal failure superimposed on stage 3 chr*INVALID FOR* More... Obesity, Class II, BMI 35-39.9 [E66.9] INVALID FOR* ESRD on dialysis (HCC) [N18.6, Z99.2] INVALID FOR* More... Chronic hypoxemic respiratory failure (HCC) [J9*INVALID FOR* Bilateral leg ulcer, limited to breakdown of sk*INVALID FOR* ESRD (end stage renal disease) (HCC) [N18.6] INVALID FOR* More... AV fistula (HCC) [I77.0] INVALID FOR* More... Hypotension [I95.9] INVALID FOR* More... Chronic anticoagulation [Z79.01] INVALID FOR* Encounter Status:Closed by REMI KENNEDY on 10/20/18 PROGRESS Observed: 10/13/2018 Status: COMPLETED Source: [place] 2:58 PM [facility] REPOSITORY HNO ID: [id number] Author: Dina Claudio Service: (none) Author Type: Physician Type: Progress Notes Filed: 10/13/2018 3:01 PM Note Text: FOLLOW UP VISIT - ENDOSCOPY NAME: Luz Franco Baca [facility] NO.: [id number] DATE OF SERVICE: 10/13/2018 : 1940 REFERRING PHYSICIAN: Jameson Kamara MD Luz is a patient I am following for erosive gastritis with a hiatal hernia. I performed upper endoscopy on August 18, 2018. Pathology demonstrated: Mild gastritis H. pylori negative. We'll plan to perform follow up endoscopy 6 weeks later. The patient has many significant medical comorbidities The patient notes no complaints since the procedure. She denies melena or any signs of blood in her stools. Her hemoglobin earlier this month was stable. The patient does not want follow-up endoscopy. VITALS: Blood pressure 112/78, pulse 68, temperature 36.1 ?C (97 ?F), temperature source Temporal Artery, height 172.7 cm (5' 8), weight 91.6 kg (202 lb), SpO2 92 %. On examination, the abdomen is benign. Assessment IMPRESSION: Clinically resolved gastritis PLAN: If the patient notes any problems or changes in bowel function, the patient should contact me immediately. Otherwise I recommend follow up endoscopy as needed. Diagnoses: (K25.7) Chronic gastric ulcer without hemorrhage or perforation (primary encounter diagnosis) (Z95.0) Pacemaker Return to Clinic: The patient is instructed to follow- up with me as needed. Dina Claudio MD CNOV Observed: 10/13/2018 Status: COMPLETED Source: [place] 2:10 PM [facility] REPOSITORY Office Visit (GENSWS) LUZ BACA ([id number]) 1940 F Date Time Provider Department 10/13/18 2:10 PM DINA CLAUDIO During your visit today, we recorded the following information about you: Temperature Pulse Blood pressure Weight 97 degrees 68/minute 112/78 91.6 kg Height 1.727 m Dina Claudio MD 10/13/2018 3:01 PM Signed FOLLOW UP VISIT - ENDOSCOPY NAME: Luz Baca CLINIC NO.: [id number] DATE OF SERVICE: 10/13/2018 : 1940 REFERRING PHYSICIAN: Jameson Kamara MD Luz is a patient I am following for erosive gastritis with a hiatal hernia. I performed upper endoscopy on August 18, 2018. Pathology demonstrated: Mild gastritis H. pylori negative. We'll plan to perform follow up endoscopy 6 weeks later. The patient has many significant medical comorbidities The patient notes no complaints since the procedure. She denies melena or any signs of blood in her stools. Her hemoglobin earlier this month was stable. The patient does not want follow-up endoscopy. VITALS: Blood pressure 112/78, pulse 68, temperature 36.1 ?C (97 ?F), temperature source Temporal Artery, height 172.7 cm (5' 8), weight 91.6 kg (202 lb), SpO2 92 %. On examination, the abdomen is benign. Assessment IMPRESSION: Clinically resolved gastritis PLAN: If the patient notes any problems or changes in bowel function, the patient should contact me immediately. Otherwise I recommend follow up endoscopy as needed. Diagnoses: (K25.7) Chronic gastric ulcer without hemorrhage or perforation (primary encounter diagnosis) (Z95.0) Pacemaker Return to Clinic: The patient is instructed to follow- up with me as needed. Dina Claudio MD Referring Provider: JAMESON KAMARA) [[id number]] Allergies As of Date: 10/13/2018 Noted Allergy Reaction ASPIRIN 01/20/2018 14 - Other: See Comments Comments: Patient states that she bled out every orifice, sts not allowed to take it at all. Patient states she was bleeding out of nose and mouth after one dose. BACTRIM (SULFAMETHOXAZOLE-TRIMETH*05/17/2017 14 - Other: See Comments Comments: My throat swells up. LATEX 05/17/2017 2 - Rash 9 - Itching Comments: Itching and welts. No wheezing or shortness of breath. PENICILLINS 07/14/2004 2 - Rash 9 - Itching Comments: Tolerated ceftriaxone during 11/2017 admission and cefepime during 12/2017 admission TETRACYCLINE 09/29/2010 2 - Rash 8 - GI Upset Comments: Emesis and diarrhea. ATORVASTATIN 05/17/2017 2 - Rash CODEINE 05/17/2017 14 - Other: See Comments Comments: Numbness DILAUDID (HYDROMORPHONE (BULK)) 05/17/2017 1 - Mental Status Change MEPERIDINE 07/14/2004 PENTAZOCINE 07/14/2004 PIOGLITAZONE 05/17/2017 16 - Unknown PROPOXYPHENE 07/14/2004 Date Reviewed: 10/13/2018 Reviewed by: Dina Cluadio - Fully Assessed Reason for Visit: update HANDP [Other] Primary Visit Diagnosis:Chronic gastric ulcer without hemorrhage or perforation [K25.7] Other Visit Diagnosis:Pacemaker [Z95.0] Prescriptions as of 10/13/2018 Sig: AMIODARONE 200 MG TABLET Take 1 tablet by mouth once d* BUDESONIDE 0.5 MG/2 ML SUSPEN* Use 2 mL via nebulizer once d* CIPROFLOXACIN 500 MG TABLET Take 1 tablet by mouth once d* COMPOUNDED PRESCRIPTION Rosalind boots to be worn daily fo* DOCUSATE SODIUM 100 MG CAPSULE Take 1 capsule by mouth twice* INSULIN ASPART U-100 100 UNI* Using Sliding Scale: 150-209* INSULIN GLARGINE (U-100) 100 * Inject 50 Units subcutaneousl* INSULIN GLARGINE (U-100) 100 * Night before dialysis (Sun, T* IPRATROPIUM-ALBUTEROL 0.5 MG-* Inhale 3 mL as instructed leanne* ISOSORBIDE MONONITRATE ER 30 * TAKE THREE TABLETS BY MOUTH O* METOCLOPRAMIDE 5 MG TABLET Take 0.5 tablets by mouth thr* METRONIDAZOLE 500 MG TABLET Take 1 tablet by mouth three * NITROGLYCERIN 0.4 MG SUBLINGU* Dissolve 1 tablet under the t* NYSTATIN 100,000 UNIT/GRAM TO* Apply 1 application to affect* ONDANSETRON HCL 4 MG TABLET Take 1 tablet by mouth every * OXYGEN (HOME THERAPY) Inhale 2.5 L/min as instructe* PANTOPRAZOLE 40 MG TABLET,DEL* Take 1 tablet by mouth once d* POLYETHYLENE GLYCOL 3350 17 G* Use 1-2 times daily as needed* PREGABALIN 25 MG CAPSULE Take 1 tablet PO daily with a* SENNOSIDES 8.6 MG TABLET Take 8.6 mg by mouth once carlos* SIMVASTATIN 40 MG TABLET Take 1 tablet by mouth every * APIXABAN 5 MG TABLET Take 1 tablet by mouth twice * DEXTROMETHORPHAN-GUAIFENESIN * Take 5-10 mL by mouth every 6* HYDROXYZINE HCL 25 MG TABLET Take 1 tablet by mouth every * SILVER SULFADIAZINE 1 % TOPIC* Apply 1 application to affect* Problem List As Of Date 10/13/2018 Noted Resolved HOCM (hypertrophic obstructive cardiomyopathy) * 01/23/2018 More... SVT (supraventricular tachycardia) (HCC) [I47.1] 01/21/2018 More... Carotid artery disease (HCC) [I77.9] 01/22/2018 CAD (coronary artery disease) [I25.10] More... Hypertension [I10] More... Hyperlipidemia [E78.5] Pneumonia [J18.9] 10/27/2017 More... COPD (chronic obstructive pulmonary disease) (H* More... Sleep apnea [G47.30] More... HH (hiatus hernia) [K44.9] 01/21/2018 GERD (gastroesophageal reflux disease) [K21.9] More... More... Arthritis [M19.90] Numbness and tingling of right leg [R20.0, R20.* 01/21/2018 Depression [F32.9] Atrial fibrillation (HCC) [I48.91] INVALID FOR* More... Controlled type 2 diabetes mellitus with chroni*INVALID FOR* More... More... More... Heart failure, systolic, acute (HCC) [I50.21] INVALID FOR*01/21/2018 More... Obesity [E66.09] INVALID FOR* More... Gout [M10.9] Pacemaker [Z95.0] More... Chronic combined systolic and diastolic CHF (co*INVALID FOR* More... Elevated troponin [R74.8] INVALID FOR*01/22/2018 More... Pulmonary hypertension (HCC) [I27.20] INVALID FOR* Oral thrush [B37.0] INVALID FOR*01/21/2018 Hyponatremia [E87.1] INVALID FOR* More... Hyperkalemia [E87.5] INVALID FOR*01/22/2018 Chest pain in adult [R07.9] INVALID FOR*02/12/2018 More... Acute renal failure superimposed on stage 3 chr*INVALID FOR* More... Obesity, Class II, BMI 35-39.9 [E66.9] INVALID FOR* ESRD on dialysis (HCC) [N18.6, Z99.2] INVALID FOR* More... Chronic hypoxemic respiratory failure (HCC) [J9*INVALID FOR* Bilateral leg ulcer, limited to breakdown of sk*INVALID FOR* ESRD (end stage renal disease) (HCC) [N18.6] INVALID FOR* More... AV fistula (HCC) [I77.0] INVALID FOR* More... Hypotension [I95.9] INVALID FOR* More... Chronic anticoagulation [Z79.01] INVALID FOR* Encounter Status:Closed by DINA CLAUDIO MD on 10/13/18 CNCO Observed: 10/13/2018 Status: COMPLETED Source: [place] 12:00 AM [facility] OTHER CAMPUS REPOSITORY Letter Text Michael Hogan DO [facility] Office [facility] Department of Vascular Surgery [address] [place] [address] Luz Baca October 13, 2018 RE: Luz Baca To Whom It May Concern, This is to certify that Luz G Keven has been under the care of Dr. Michael Hogan. She has exhausted her access options secondary to severe pulmonary hypertension and persistent hypotension. Recommend dialysis catheter for access at this time. Please call if you have any questions. Sincerely, Michael Hogan DO (Electronically signed to expedite processing) PROGRESS Observed: 10/07/2018 Status: COMPLETED Source: [place] 11:10 AM [facility] REPOSITORY HNO ID: [id number] Author: Jameson Kamara Service: (none) Author Type: Physician Type: Progress Notes Filed: 10/07/2018 11:11 AM Note Text: Reviewed. Continue unna boots and insulin as previously prescribed. PROGRESS Observed: 10/07/2018 Status: COMPLETED Source: [place] 10:58 AM [facility] REPOSITORY HNO ID: [id number] Author: Remi Briseno) Brent Service: (none) Author Type: Registered Nurse Type: Progress Notes Filed: 10/07/2018 11:08 AM Note Text: TRANSITION CARE MANAGEMENT (TCM) FOLLOW-UP NOTE Provider Action/FYI See BS HH nurse states lowest in past mos was 70 and highest was 237(end of Aug) Re-instructed on correct insulin dose Pt did restart Imdur Nurse states both legs and leg wounds are dry, Unna boots applied Patient identified by name and date of : YES Spoke to Li nurse Summary: Luz Baca is a 78 year old female who reports glucose readings as noted. DATE BS date and time on meter incorrect [phone] [phone] 137 Any low blood sugars during this period of reporting No Patient's diabetes medications as follows: insulin glargine (LANTUS SOLOSTAR U-100 INSULIN) Night before dialysis (Wed, and ) pt is to take Lantus 18 units insulin glargine (LANTUS SOLOSTAR U-100 INSULIN) Inject 50 Units subcutaneously every morning. insulin aspart U-100 (NOVOLOG FLEXPEN U-100 INSULIN) Using Sliding Scale: 150-209 1 unit, 210-269 2 units, 270- 329 3 units, 330-389 4 units, 390-449 5 units Daughter re-instructed on correct evening dose of Lantus and nurse states dgt wrote down doses. Watermelon Inspector plan for next outreach: Will follow up one week Signature Remi Kennedy RN October 07, 2018 ELÍASTOUTREACH Observed: 10/07/2018 Status: COMPLETED Source: [place] 12:00 AM [facility] REPOSITORY Patient Outreach (FAMPWS) LUZ BACA ([id number]) 1940 F Date Time Provider Department 10/07/18 REMI KENNEDY (RN) SLOANWS During your visit today, we recorded the following information about you: Remi Kennedy RN 10/07/2018 11:08 AM Signed TRANSITION CARE MANAGEMENT (TCM) FOLLOW-UP NOTE Provider Action/FYI See BS nurse states lowest in past mos was 70 and highest was 237(end of Aug) Re-instructed on correct insulin dose Pt did restart Imdur HH Nurse states both legs and leg wounds are dry, Unna boots applied Patient identified by name and date of : YES Spoke to Li nurse Summary: Luz Baca is a 78 year old female who reports glucose readings as noted. DATE BS date and time on meter incorrect [phone] [phone] 137 Any low blood sugars during this period of reporting No Patient's diabetes medications as follows: insulin glargine (LANTUS SOLOSTAR U-100 INSULIN) Night before dialysis (Wed, and ) pt is to take Lantus 18 units insulin glargine (LANTUS SOLOSTAR U-100 INSULIN) Inject 50 Units subcutaneously every morning. insulin aspart U-100 (NOVOLOG FLEXPEN U-100 INSULIN) Using Sliding Scale: 150-209 1 unit, 210-269 2 units, 270- 329 3 units, 330-389 4 units, 390-449 5 units Daughter re-instructed on correct evening dose of Lantus and nurse states dgt wrote down doses. Watermelon Inspector plan for next outreach: Will follow up one week Signature Remi Kennedy RN October 07, 2018 Jameson Kamara MD 10/07/2018 11:11 AM Signed Reviewed. Continue unna boots and insulin as previously prescribed. Allergies As of Date: 10/07/2018 Noted Allergy Reaction ASPIRIN 01/20/2018 14 - Other: See Comments Comments: Patient states that she bled out every orifice, sts not allowed to take it at all. Patient states she was bleeding out of nose and mouth after one dose. BACTRIM (SULFAMETHOXAZOLE-TRIMETH*05/17/2017 14 - Other: See Comments Comments: My throat swells up. LATEX 05/17/2017 2 - Rash 9 - Itching Comments: Itching and welts. No wheezing or shortness of breath. PENICILLINS 07/14/2004 2 - Rash 9 - Itching Comments: Tolerated ceftriaxone during 11/2017 admission and cefepime during 12/2017 admission TETRACYCLINE 09/29/2010 2 - Rash 8 - GI Upset Comments: Emesis and diarrhea. 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] Prescriptions as of 10/07/2018 Sig: AMIODARONE 200 MG TABLET Take 1 tablet by mouth once d* APIXABAN 5 MG TABLET Take 1 tablet by mouth twice * Patient not taking: Reported on 09/27/2018 BUDESONIDE 0.5 MG/2 ML SUSPEN* Use 2 mL via nebulizer once d* CIPROFLOXACIN 500 MG TABLET Take 1 tablet by mouth once d* COMPOUNDED PRESCRIPTION Rosalind boots to be worn daily fo* DOCUSATE SODIUM 100 MG CAPSULE Take 1 capsule by mouth twice* DEXTROMETHORPHAN-GUAIFENESIN * Take 5-10 mL by mouth every 6* HYDROXYZINE HCL 25 MG TABLET Take 1 tablet by mouth every * INSULIN ASPART U-100 100 UNI* Using Sliding Scale: 150-209* INSULIN GLARGINE (U-100) 100 * Inject 50 Units subcutaneousl* INSULIN GLARGINE (U-100) 100 * Night before dialysis (Sun, T* IPRATROPIUM-ALBUTEROL 0.5 MG-* Inhale 3 mL as instructed leanne* ISOSORBIDE MONONITRATE ER 30 * TAKE THREE TABLETS BY MOUTH O* METOCLOPRAMIDE 5 MG TABLET Take 0.5 tablets by mouth thr* METRONIDAZOLE 500 MG TABLET Take 1 tablet by mouth three * NITROGLYCERIN 0.4 MG SUBLINGU* Dissolve 1 tablet under the t* NYSTATIN 100,000 UNIT/GRAM TO* Apply 1 application to affect* ONDANSETRON HCL 4 MG TABLET Take 1 tablet by mouth every * OXYGEN (HOME THERAPY) Inhale 2.5 L/min as instructe* PANTOPRAZOLE 40 MG TABLET,DEL* Take 1 tablet by mouth once d* POLYETHYLENE GLYCOL 3350 17 G* Use 1-2 times daily as needed* PREGABALIN 25 MG CAPSULE Take 1 tablet PO daily with a* SENNOSIDES 8.6 MG TABLET Take 8.6 mg by mouth once carlos* SILVER SULFADIAZINE 1 % TOPIC* Apply 1 application to affect* SIMVASTATIN 40 MG TABLET Take 1 tablet by mouth every * Problem List As Of Date 10/07/2018 Noted Resolved HOCM (hypertrophic obstructive cardiomyopathy) * 01/23/2018 More... SVT (supraventricular tachycardia) (HCC) [I47.1] 01/21/2018 More... Carotid artery disease (HCC) [I77.9] 01/22/2018 CAD (coronary artery disease) [I25.10] More... Hypertension [I10] More... Hyperlipidemia [E78.5] Pneumonia [J18.9] 10/27/2017 More... COPD (chronic obstructive pulmonary disease) (H* More... Sleep apnea [G47.30] More... HH (hiatus hernia) [K44.9] 01/21/2018 GERD (gastroesophageal reflux disease) [K21.9] More... More... Arthritis [M19.90] Numbness and tingling of right leg [R20.0, R20.* 01/21/2018 Depression [F32.9] Atrial fibrillation (HCC) [I48.91] INVALID FOR* More... Controlled type 2 diabetes mellitus with chroni*INVALID FOR* More... More... More... Heart failure, systolic, acute (HCC) [I50.21] INVALID FOR*01/21/2018 More... Obesity [E66.09] INVALID FOR* More... Gout [M10.9] Pacemaker [Z95.0] More... Chronic combined systolic and diastolic CHF (co*INVALID FOR* More... Elevated troponin [R74.8] INVALID FOR*01/22/2018 More... Pulmonary hypertension (HCC) [I27.20] INVALID FOR* Oral thrush [B37.0] INVALID FOR*01/21/2018 Hyponatremia [E87.1] INVALID FOR* More... Hyperkalemia [E87.5] INVALID FOR*01/22/2018 Chest pain in adult [R07.9] INVALID FOR*02/12/2018 More... Acute renal failure superimposed on stage 3 chr*INVALID FOR* More... Obesity, Class II, BMI 35-39.9 [E66.9] INVALID FOR* ESRD on dialysis (HCC) [N18.6, Z99.2] INVALID FOR* More... Chronic hypoxemic respiratory failure (HCC) [J9*INVALID FOR* Bilateral leg ulcer, limited to breakdown of sk*INVALID FOR* ESRD (end stage renal disease) (HCC) [N18.6] INVALID FOR* More... AV fistula (HCC) [I77.0] INVALID FOR* More... Hypotension [I95.9] INVALID FOR* More... Chronic anticoagulation [Z79.01] INVALID FOR* Encounter Status:Closed by REMI KENNEDY on 10/07/18 PROGRESS Observed: 10/06/2018 Status: COMPLETED Source: [place] 3:25 PM [facility] RE[facility] HNO ID: [id number] Author: Remi (Allyson) Brent Service: (none) Author Type: Registered Nurse Type: Progress Notes Filed: 10/06/2018 3:32 PM Note Text: PRIMARY CARE COORDINATION QUICK NOTE Provider Action/FYI FYI Patient identified by name and date . TC from daughter, Octavia, states pt cannot get appt to [facility] until 10/27. Informed PCC spoke with PCP and he is okay with waiting until then for appt because the home health nurse is coming tomorrow to put on special dressings, verbalized understanding. Asked about stat CT scan results. J Podlogar reviewed results and states pt will probably need to be treated for diverticulitis, no strangulated hernia. Informed PCP office will call back after PCP reviews results, verbalized agreement. Remi Kennedy RN October 06, 2018 3:32 PM PROGRESS Observed: 10/06/2018 Status: COMPLETED Source: [place] 2:33 PM [facility] RE[facility]IT[facility] HNO ID: [id number] Author: Tiffani Reef Rao Ct Service: (none) Author Type: (none) Type: Progress Notes Filed: 10/06/2018 2:34 PM Note Text: Radiology Service Progress Note PATIENT NAME: Luz Baca DATE OF SERVICE: October 06, 2018 TIME: 2:33 PM PATIENT IDENTITY VERIFICATION COMPLETED USING TWO (2) METHODS: Patient confirmed name verbally and Date of . PATIENT GENDER DATA: Female. status: : No status: NO. PATIENT RELEVANT IMPLANT DATA REVIEWED: Not Applicable CONTRAST INDUCED NEPHROPATHY RISK FACTORS: Patient age > 60 years CREATININE: Creatinine Date Value Ref Range Status 09/23/2018 5.46 (H) 0.58 - 0.96 mg/dL Final 08/04/2018 4.36 (H) 0.58 - 0.96 mg/dL Final 06/30/2018 4.15 (H) 0.58 - 0.96 mg/dL Final 06/30/2018 4.16 (H) 0.58 - 0.96 mg/dL Final eGFR-All Other Races Date Value Ref Range Status 09/23/2018 8 . Final Comment: eGFR (Estimated GFR) Units of measure: mL/min/1.73 meters squared eGFR is derived from the reexpressed MDRD Study equation using the following parameters: serum creatinine, age, gender and race. The creatinine assay has been calibrated to be traceable to IDMS. An eGFR <60 mL/min/1.73m2 for >3 months is consistent with chronic kidney disease. Refer to KDOQI guidelines for clinical interpretation. In patients with unstable renal function, e.g. those with acute kidney injury, the eGFR may not accurately reflect actual GFR. eGFR- Date Value Ref Range Status 09/23/2018 9 Final P.O.C.T. RESULTS: N/A October 06, 2018 RADIOLOGIST NOTIFIED?: No ALLERGIES: Reviewed and unchanged CONTRAST ALLERGY: NO. PERIPHERAL IV ACCESS: n/a RADIOLOGY DEPARTMENT: CT; Exam(s) Completed: Abdomen/Pelvis SIGNED BY: Tiffani Lowe October 06, 2018 2:[address] ABD/PEL WO IVCON Observed: 10/06/2018 Status: F Source: [place] 2:33 PM [facility] REPOSITORY * * *Final Report* * * DATE OF EXAM: Oct 06 2018 2:33PM [facility] 0531 - CT ABD/PEL WO IVCON / PROCEDURE REASON: multiple diagnoses * * * * Physician Interpretation * * * * EXAMINATION: CT ABDOMEN AND PELVIS WITHOUT IV CONTRAST CLINICAL HISTORY: Abdominal pain. TECHNIQUE: Non-IV contrast imaging of the abdomen and pelvis was performed using standard technique, scanning from just above the dome of the diaphragm to the symphysis pubis. Unenhanced imaging is limited for the evaluation of some intra-abdominal and pelvic pathology. MQ: [id number] Contrast: IV: None Oral: None CT Radiation dose: Integrated Dose-length product (DLP) for this visit = 842 mGy*cm. CT Dose Reduction Employed: Automated exposure control(AEC) and iterative recon COMPARISON: CTA abdomen and pelvis 07/07/2018 RESULT: Abdomen / Pelvis: Liver: Unremarkable. Biliary: S/p cholecystectomy. Spleen: No splenomegaly. Pancreas: Unremarkable. Adrenals: Stable mild left adrenal thickening. Field Kidneys: No calculus, hydronephrosis or finding to suggest a cyst or mass in the unenhanced kidney. GI Tract: Small hiatal hernia. No bowel dilation. Normal appendix. Segment of wall thickening in the sigmoid colon with multiple diverticula and pericolonic stranding. No abscess. Lymph Nodes: No lymphadenopathy. Mesentery/peritoneum: No ascites. Retroperitoneum: No mass. Vasculature: Arterial atherosclerotic disease without aneurysm. Pelvis: No mass or ascites. Hysterectomy. Bones/Soft Tissues: Stable moderate [place] fat containing epigastric ventral midline hernia with a mouth measuring 3.9 cm in transverse width. Degenerative changes of the spine. Lower thorax: Stable left lung base pleural thickening and pleural calcifications. IMPRESSION: Uncomplicated acute sigmoid diverticulitis. No abscess. Consider colonoscopy after treatment to exclude underlying neoplasm. Fat-containing epigastric ventral midline hernia. Service Delivery Supervisor: PSCB Transcribe Date/Time: Oct 06 2018 2:39P Dictated by : LIAN REDD MD This examination was interpreted and the report reviewed and electronically signed by: LIAN REDD MD on Oct 06 2018 2:50PM EST [id number] PROGRESS Observed: 10/06/2018 Status: COMPLETED Source: [place] 11:54 AM [facility] REPOSITORY HNO ID: [id number] Author: Remi Briseno) Brent Service: (none) Author Type: Registered Nurse Type: Progress Notes Filed: 10/06/2018 12:11 PM Note Text: PRIMARY CARE COORDINATION QUICK NOTE Provider Action/FYI FYI Patient identified by name and date . TC from [place], [facility], reviewed orders given to office below. Call with BS tomorrow, reinstruct on Lantus insulin doses, apply Unna Boot, updated medication list verbally and will fax AVS PROGRESS Observed: 10/06/2018 Status: COMPLETED Source: [place] 11:10 AM [facility] [place] REPOSITORY HNO ID: [id number] Author: Remi Briseno) Brent Service: (none) Author Type: Registered Nurse Type: Progress Notes Filed: 10/06/2018 11:42 AM Note Text: PRIMARY CARE COORDINATION IN OFFICE VISIT WITH PCP Patient has been identified by name and date of . PCP Assessment/Plan: Reviewed PCP plan with patient using Teach Back Discussed BS readings, pt forgot meter. PCC will call [facility] nurse re: BS readings and reviewing PM insulin doses. PCC Plan of Care: Patient concerns: Abdominal pain and constipation PCC Interventions: TC to Clay at [facility], instructed form nurse to apply Unna Boot tomorrow instead of using Bacitracin and Kenalog, verbalized understanding TC to Li at [facility], informed pt was seen by PCP today and reviewed abd pain, stat CT, Medication orders and refills. Instructed nurse to call from home tomorrow with pt's BS from meter and to re-instruct patient and daughter with correct dose of PM Lantus insulin: Night before dialysis (Sun, and Th) pt is to take Lantus 18 units The other nights, (---Wed) pt is to take 28 units Lantus. Gave PCC name and number so they can call directly. TC nia Fuller at Dr. Claudio's office, discussed pt's repeat EGD, states it is scheduled at [facility] on 10/31. States pt needs another appt within 30 days of EGD. Scheduled appt for 10/13 at 2:10. Informed pt is having stat CT abd today for ventral hernia pain. Next Office Visit: 11/03/2018 Plan For Next Call: Next week Remi Kennedy, RN Remi Kennedy RN October 06, 2018 PROGRESS Observed: 10/06/2018 Status: COMPLETED Source: [place] 9:41 AM [facility] REPOSITORY HNO ID: [id number] Author: Jameson Adams) Koffi Service: (none) Author Type: Physician Type: Progress Notes Filed: 10/06/2018 1:26 PM Note Text: Transitional Care Management Progress Note The patients TCM visit was performed within the 14 days of discharge. TCM Eligibility Documentation The following information was gathered during the initial Patient Outreach Encounter. Date of Outreach: 09/26/2018 Outreach Attempt 1: Contact Made Date of Discharge 09/23/2018 Some recent data might be hidden If no data exists please enter it manually. If data exists please delete date of discharge and date of initial contact seen below. SUMMARY: -Pt discharged from [facility] on 09/23. -Follow up appointment on 10/06 with PCP Admitted for: ESRD HYPOTENSION DM w/ CKD Medication review completed Yes Karen Arias LPN Provider Documentation: In follow-up of hospitalization, Luz Baca is a 78 year old female. I have reviewed the patient?s last hospital course including diagnostic testing performed during this hospitalization, their discharge medications, and my assessment and plan with the patient and any family members present at today?s visit. CNOV Observed: 10/06/2018 Status: COMPLETED Source: [place] 9:40 AM [facility] REPOSITORY Office Visit (FAMPWS) LUZ BACA ([id number]) 1940 F Date Time Provider Department 10/06/18 9:40 AM JAMESON KAMARA) FAMPWS During your visit today, we recorded the following information about you: Pulse Respiration Blood pressure Weight 88/minute 20/minute 112/66 93 kg Jameson Kamara MD 10/06/2018 1:26 PM Signed Chief Complaint Patient presents with: Hospital F/U: TCM 14 Pain: pt states hernia pain is a 10 HPI Luz Baca is a 78 year old female who presents here today for Hospital Discharge Follow up. Patient admitted to [facility] from 09/22 to 09/23 after developing hypotension s/p fistulogram with Dr. Hogan. Hospital course as follows: Hospital Course: Admitted for observation s/p fistulogram with Dr. Hogan due to hypotension at 85/58. This has been an ongoing problem recently with episodes of hypotension at dialysis. Her BP came up to 111/48 upon arrival to the floor. Imdur and Coreg was held overnight. She went for dialysis today and BP stayed stable, dropped to 88/56 at the lowest and otherwise remained SBP 100s. She is not feeling lightheaded and denies any significant right arm pain. Hematoma has spread 1in past previously drawn border, discussed with vascular surgery who said she is ok for discharge. Will plan to continue imdur on discharge but discontinue coreg. copy coordinator Remi Kennedy contacted patient early this week. TCM note below. TRANSITION CARE MANAGEMENT (TCM) FOLLOW-UP NOTE ? ? Provider Action/FYI ? Reviewed medication list with daughter ? States Eliquis, Coreg and Imdur were discontinued ? Pt is no longer taking Robitussin, Atarax, or using Pulmicort or Silvadene Using Duoneb nebulizer as needed ? Pt not taking Miralax due to fluid restriction and so much fluid removed at dialysis States HH nurse recommended Colace. (Also takes Senna without relief) ? Pt needs refill on Lyrica if PCP wants it continued. Also refill Zofran ? Pt is not taking correct evening dose of Lantus. Was supposed to take: Night before dialysis (Wed, and ) pt is to take Lantus 18 units The other nights, (---Wed) pt is to take 28 units Lantus. Pt is taking 20 units on Wed, , and 32 units ---Wed Pt has 4 BS written down 118, 141, 70, 120 Unsure date or time of BS Usually take FBS and BS before dinner ? Reglan ORDER PENDED FOR MED UPDATE, daughter states medication dose has been cut in half ? Please advise ? Patient states that she is still having hypotension episodes with dialysis since discharge from the hospital. Has not started the Imdur and is still holding the Eliquis and Coreg. Had follow up appointment with Dr. Cardona who stated she would benefit from restarting her beta lenny and recommended she follow up with dialysis for fluid status adjustment. Denies syncopal episodes. Has been nauseous recently, but able to keep down meals regularly. Complaining today of 7/10 epigastric pain over her site of ventral hernia with constipation over the last few days and nausea. Denies GI bleed, melena. Last BM was yesterday. Taking Senna which has not been much help. Requesting rx for Colace as she cannot take miralax due to fluid restriction. Wounds in LE bilaterally with itching and serous drainage without purulent effusion. Has been seen by home health who requested Unna boot, has not gotten them yet. Has legs wrapped in gauze today. Applying neosporin OTC. Has not restarted Elqius as she has not been cleared by Dr. Claudio for history of GI bleed. Is supposed to be following up with their office for EGD. Will contact today to get appointment dates. Past medical history, appointments, medications, allergies reviewed. Previous Medical History PAST MEDICAL HISTORY Diagnosis Date - Arthritis - Atrial fibrillation ([facility]) - CAD (coronary artery disease) stents x9, defibrillator, CABG. Seeing Dr. Cardona - Cardiac defibrillator in place - Cardiomegaly - Carotid artery disease ([facility]) left - Chronic hypoxemic respiratory failure ([facility]) 07/01/2018 - COPD (chronic obstructive pulmonary disease) ([facility]) Dr. Cruz - Depression - Diabetes ([facility]) - Diabetic neuropathy ([facility]) - Edema - ESRD (end stage renal disease) on dialysis ([facility]) ZACH Nieto, Dr. Swartz - GERD (gastroesophageal reflux disease) - Gout with hyperuricemia - HH (hiatus hernia) - HOCM (hypertrophic obstructive cardiomyopathy) ([facility]) S/P Septal Myectomy in 2003. Now with LVEF 50% and mod/severe pulm HTN with tricuspid regurgitation - HTN (hypertension) - Hyperlipidemia - Morbid obesity with BMI of 40.0-44.9, adult ([facility]) - Presence of combination internal cardiac defibrillator (ICD) and pacemaker - Sleep apnea 2011 not on CPAP, unable to tolerate mask 02/2017 - SVT (supraventricular tachycardia) ([facility]) NSVT and questionable VT in 2003 post op Previous Surgical History PAST SURGICAL HISTORY Procedure Laterality Date - CHOLECYSTECTOMY HX - DIALYSIS ACCESS SYSTEM - HEART SURGERY HX 07/18/2004 Septal myectomy and CABG x2 (DEBORAH-LAD, SVG-PDA). - HYSTERECTOMY HX - IANDD PERIANAL ABSCESS - PACEMAKER with defib - PAST SURGICAL HISTORY OF left breast nodule removed - PAST SURGICAL HISTORY OF skin lesions removed - STENT PLACEMENT coronary Family History FAMILY HISTORY Problem Relation Age of Onset - Hypertension Mother living at age 93, HTN - Heart Failure Mother NE - Cancer Father age 71, lung cancer - Heart Attack Sister - COPD Brother - Heart Paternal Grandmother - Heart Paternal Grandfather - Heart Sister - Diabetes Sister - Heart Sister - Breast Cancer Sister - Diabetes Sister - Hypertension Brother - Diabetes Brother Patient Allergies ALLERGIES Allergen Reactions - Aspirin Other: See Comments Patient states that she bled out every orifice, sts not allowed to take it at all. Patient states she was bleeding out of nose and mouth after one dose. - Bactrim [Sulfametho* Other: See Comments My throat swells up. - Latex Rash, Itching Itching and welts. No wheezing or shortness of breath. - Penicillins Rash, Itching Tolerated ceftriaxone during 11/2017 admission and cefepime during 12/2017 admission - Tetracycline Rash, GI Upset Emesis and diarrhea. - Atorvastatin Rash - Codeine Other: See Comments Numbness - Dilaudid [Hydromorp* Mental Status Change - Meperidine - Pentazocine - Pioglitazone Unknown - Propoxyphene Current Medications Current Outpatient Prescriptions on File Prior to Visit: amiodarone (PACERONE) 200 mg tablet Take 1 tablet by mouth once daily. apixaban (ELIQUIS) 5 mg tab(s) Take 1 tablet by mouth twice daily. (Patient not taking: Reported on 09/27/2018 ) bacitracin zinc (ANTIBIOTIC, BACITRACIN ZINC,) 500 unit/gram ointment Apply 1 application to affected area twice daily. budesonide (PULMICORT) 0.5 mg/2 mL nebulizer solution Use 2 mL via nebulizer once daily. INHALE 2 ML BY NEBULIZER OVER 5-15 MINUTES EVERY 12 HOURS. COMPOUNDED PRESCRIPTION Rosalind boots to be worn daily for DX: superficial wounds on LE bilaterally. guaiFENesin-dextromethorphan (ROBITUSSIN DM) 100-10 mg/5 mL syrup Take 5-10 mL by mouth every 6 hours as needed for Cough. hydrOXYzine HCl (ATARAX) 25 mg tablet Take 1 tablet by mouth every 12 hours as needed for Itching/Rash. insulin aspart U-100 (NOVOLOG FLEXPEN U-100 INSULIN) 100 unit/mL inpn Using Sliding Scale: 150-209 1 unit, 210-269 2 units, 270-329 3 units, 330-389 4 units, 390-449 5 units insulin glargine (LANTUS SOLOSTAR U-100 INSULIN) 100 unit/mL (3 mL) inpn Inject 50 Units subcutaneously every morning. insulin glargine (LANTUS SOLOSTAR U-100 INSULIN) 100 unit/mL (3 mL) inpn Inject 28 Units subcutaneously daily at bedtime. ipratropium-albuterol (DUONEB) 0.5 mg-3 mg(2.5 mg base)/3 mL nebu Inhale 3 mL as instructed every 4 hours while awake. And prn for wheezing/shortness of breath. isosorbide mononitrate ER (IMDUR) 30 mg 24 hr tablet TAKE THREE TABLETS BY MOUTH ONCE DAILY metoclopramide HCl (REGLAN) 5 mg tablet Take 0.5 tablets by mouth three times daily. nitroglycerin sublingual (NITROQUICK) 0.4 mg SL tablet Dissolve 1 tablet under the tongue every 5 minutes as needed. nystatin (NYSTOP) powder Apply 1 application to affected area three times daily. ondansetron (ZOFRAN) 4 mg tablet Take 4 mg by mouth every 8 hours as needed. OXYGEN, HOME THERAPY, Inhale 2.5 L/min as instructed continuous. 3 L/min when leaves home. pantoprazole DR (PROTONIX) 40 mg tablet Take 1 tablet by mouth once daily. polyethylene glycol 3350 (MIRALAX) 17 gram/dose powder Use 1-2 times daily as needed for constipation. pregabalin (LYRICA) 25 mg capsule Take 1 tablet PO daily with an additional 1 tablet PO after dialysis MWF senna (SENNA) 8.6 mg tab Take 8.6 mg by mouth once daily. silver sulfADIAZINE (SILVADENE,THERMAZENE) 1 % cream Apply 1 application to affected area once daily. simvastatin (ZOCOR) 40 mg tablet Take 1 tablet by mouth every morning. No current facility-administered medications on file prior to visit. Social History Social History Marital status: Spouse name: Years of education: Number of children: Social History Main Topics Smoking status: Former Smoker Packs/day: 2.50 Years: 43.00 Types: Cigarettes Start date: 1961 Quit date: 07/07/2004 Smokeless tobacco: Never Used Alcohol use: No Drug use: No Other Topics Concern Caffeine Concern Yes Comment:coffee 1 cup daily Special Diet No Comment:Regular Exercise No Comment:no unable, due to SOB x several months. Social History Narrative Patient and daughter live together. Review of Symptoms REVIEW OF SYSTEMS GENERAL: No weight loss, malaise or fevers RESPIRATORY: Negative for cough, hemoptysis, wheezing, COPD, dyspnea or shortness of breath CARDIOVASCULAR: Negative for chest pain, leg swelling, hypertension, CHF or palpitations GI: See HPI SKIN: See HPI EXAM: BP 112/66 Pulse 88 Resp 20 Wt 93 kg (205 lb) BMI 31.17 kg/m? General Appearance: Well appearing, alert, in no acute distress, well-hydrated, well nourished.. Skin: confluent maculopapular rashes over anterior shins bilaterally, left worse than right, with serous drainage. Lungs: lungs clear to auscultation. No wheezing, rhonchi, rales. Heart: RRR without murmur, gallop, or rubs. No ectopy. Abdomen: Abdomen soft. Bowel sounds normal. Positive findings: ventral hernia in epigastric region which is TTP and partially reducible. Voluntary guarding on exam without rebound. Extremities: no edema. . Health Maintenance List DAMION/ARB MED PRESCRIBED due on 06/23/2018 DILATED RETINAL EXAM due on 10/27/2018 STATIN MED ADHERENCE due on 10/18/2018 DIABETES MED ADHERENCE due on 10/18/2018 LUNG CANCER SCREENING due on 12/10/2018 DIABETIC FOOT EXAM due on 01/31/2019 HBA1C due on 02/02/2019 LDL CHOLESTEROL due on 05/25/2019 COLORECTAL CANCER SCREENING,SEE MODIFIER due on 07/05/2019 ANNUAL PCP TEAM CHRONIC DISEASE VISIT due on 09/19/2019 SERUM CREATININE due on 09/23/2019 HEMOGLOBIN/HEMATOCRIT due on 09/23/2019 BP CONTROLLED (<130/80) due on 09/27/2019 DTAP,TDAP,TD(2 - Td) due on 07/05/2028 BONE DENSITY Completed ADULT PREVNAR-13 Completed INFLUENZA Completed PNEUMOVAX AGE 65 AND OVER WITH 5YR LOOKBACK Completed ASSESSMENT/PLAN: 1. Hypotension, unspecified hypotension type - ICD9: 458.9, ICD10: I95.9 (primary diagnosis) Still having symptoms after dialysis. Hold coreg. Push fluid as able. F/u with dialysis. 2. Epigastric pain - ICD9: 789.06, ICD10: R10.13 Concern for strangulated hernia. Obtain STAT CT abd/pelvis and will call with results. Advised ER with worsening pain, nausea/vomiting leading to dehydration, GI bleed. - CIPROFLOXACIN 500 MG TABLET - CT ABD/PEL W IVCON - IV CONTRAST (RADIOLOGY PROCEDURE) - ENTERIC CONTRAST (RADIOLOGY PROCEDURE) - CREATININE, ISTAT - CBC + DIFF - CT ABD/PEL WO IVCON - ONDANSETRON HCL 4 MG TABLET 3. Constipation, unspecified constipation type - ICD9: 564.00, ICD10: K59.00 Add colace. Continue Senna. - CIPROFLOXACIN 500 MG TABLET - CT ABD/PEL W IVCON - IV CONTRAST (RADIOLOGY PROCEDURE) - ENTERIC CONTRAST (RADIOLOGY PROCEDURE) - CREATININE, ISTAT - DOCUSATE SODIUM 100 MG CAPSULE - ONDANSETRON HCL 4 MG TABLET 4. Ventral hernia without obstruction or gangrene - ICD9: 553.20, ICD10: K43.9 See #2 - CIPROFLOXACIN 500 MG TABLET - CT ABD/PEL W IVCON - IV CONTRAST (RADIOLOGY PROCEDURE) - ENTERIC CONTRAST (RADIOLOGY PROCEDURE) - CREATININE, ISTAT 5. Other impaction of intestine (HCC) - ICD9: 560.39, ICD10: K56.49 See #2 - CIPROFLOXACIN 500 MG TABLET - CT ABD/PEL W IVCON - IV CONTRAST (RADIOLOGY PROCEDURE) - ENTERIC CONTRAST (RADIOLOGY PROCEDURE) - CREATININE, ISTAT 6. Diabetic polyneuropathy associated with type 2 diabetes mellitus (HCC) - ICD9: 250.60, 357.2, ICD10: E11.42 Refill lyrica per request. - PREGABALIN 25 MG CAPSULE 7. Intestinal obstruction, unspecified cause, unspecified whether partial or complete (HCC) - ICD9: 560.9, ICD10: K56.609 See #2 - CT ABD/PEL WO IVCON 8. Open wounds involving multiple regions of lower extremity - ICD9: 894.0, ICD10: S81.809A Referral to wound care and unna boots per home health. 9. Chronic anticoagulation - ICD9: V58.61, ICD10: Z79.01 Patient has appointment with Dr. Claudio on 10/13, will discuss restarting Eliquis at that time as she has upcoming EGD on 10/31. MD Jameson Samuels MD 10/06/2018 1:26 PM Signed Transitional Care Management Progress Note The patients TCM visit was performed within the 14 days of discharge. TCM Eligibility Documentation The following information was gathered during the initial Patient Outreach Encounter. Date of Outreach: 09/26/2018 Outreach Attempt 1: Contact Made Date of Discharge 09/23/2018 Some recent data might be hidden If no data exists please enter it manually. If data exists please delete date of discharge and date of initial contact seen below. SUMMARY: -Pt discharged from [facility] on 09/23. -Follow up appointment on 10/06 with PCP Admitted for: ESRD HYPOTENSION DM w/ CKD Medication review completed Yes Karen Arias LPN Provider Documentation: In follow-up of hospitalization, Luz Baca is a 78 year old female. I have reviewed the patient?s last hospital course including diagnostic testing performed during this hospitalization, their discharge medications, and my assessment and plan with the patient and any family members present at today?s visit. Referring Provider: JAMESON KAMARA () [[id number]] Allergies As of Date: 10/06/2018 Noted Allergy Reaction ASPIRIN 01/20/2018 14 - Other: See Comments Comments: Patient states that she bled out every orifice, sts not allowed to take it at all. Patient states she was bleeding out of nose and mouth after one dose. BACTRIM (SULFAMETHOXAZOLE-TRIMETH*05/17/2017 14 - Other: See Comments Comments: My throat swells up. LATEX 05/17/2017 2 - Rash 9 - Itching Comments: Itching and welts. No wheezing or shortness of breath. PENICILLINS 07/14/2004 2 - Rash 9 - Itching Comments: Tolerated ceftriaxone during 11/2017 admission and cefepime during 12/2017 admission TETRACYCLINE 09/29/2010 2 - Rash 8 - GI Upset Comments: Emesis and diarrhea. ATORVASTATIN 05/17/2017 2 - Rash CODEINE 05/17/2017 14 - Other: See Comments Comments: Numbness DILAUDID (HYDROMORPHONE (BULK)) 05/17/2017 1 - Mental Status Change MEPERIDINE 07/14/2004 PENTAZOCINE 07/14/2004 PIOGLITAZONE 05/17/2017 16 - Unknown PROPOXYPHENE 07/14/2004 Date Reviewed: 10/06/2018 Reviewed by: Tiffani Rao Ct - Fully Assessed Reason for Visit: Hospital F/U [57] Cmt: TCM 14 Pain [78] Cmt: pt states hernia pain is a 10/ Reason For Visit History Recorded Primary Visit Diagnosis:Hypotension, unspecified hypotension type [I95.9] Other Visit Diagnoses:Epigastric pain [R10.13] Constipation, unspecified constipation type [K59.00] Ventral hernia without obstruction or gangrene [K43.9] Other impaction of intestine (HCC) [K56.49] Diabetic polyneuropathy associated with type 2 diabetes mellitus (HCC) [E11.42] Intestinal obstruction, unspecified cause, unspecified whether partial or complete (HCC) [K56.609] Open wounds involving multiple regions of lower extremity [S81.809A] Chronic anticoagulation [Z79.01] Order(s):docusate sodium (COLACE) 100 mg capsuleTake 1 capsule by mouth twice daily as needed for Constipation.Disp: 60 capsuleRfl: 1 pregabalin (LYRICA) 25 mg capsuleTake 1 tablet PO daily with an additional 1 tablet PO after dialysis MWFDisp: 45 capsuleRfl: 2 CT ABD/PEL WO IVCON [[id number]] Order #: [id number] FUTURE insulin glargine (LANTUS SOLOSTAR U-100 INSULIN) 100 unit/mL (3 mL) inpnNight before dialysis (Wed, and ) pt is to take Lantus 18 units The other nights, (---Wed) pt is to take 28 units Lantus.Disp: Rfl: ondansetron (ZOFRAN) 4 mg tabletTake 1 tablet by mouth every 8 hours as needed.Disp: 30 tabletRfl: 2 CONSULT TO SKIN CARE TEAM [[id number]] Order #: [id number]: 1 Prescriptions as of 10/06/2018 Sig: AMIODARONE 200 MG TABLET Take 1 tablet by mouth once d* APIXABAN 5 MG TABLET Take 1 tablet by mouth twice * Patient not taking: Reported on 09/27/2018 BUDESONIDE 0.5 MG/2 ML SUSPEN* Use 2 mL via nebulizer once d* COMPOUNDED PRESCRIPTION Rosalind boots to be worn daily fo* DOCUSATE SODIUM 100 MG CAPSULE Take 1 capsule by mouth twice* DEXTROMETHORPHAN-GUAIFENESIN * Take 5-10 mL by mouth every 6* HYDROXYZINE HCL 25 MG TABLET Take 1 tablet by mouth every * INSULIN ASPART U-100 100 UNI* Using Sliding Scale: 150-209* INSULIN GLARGINE (U-100) 100 * Inject 50 Units subcutaneousl* INSULIN GLARGINE (U-100) 100 * Night before dialysis ([place], T* IPRATROPIUM-ALBUTEROL 0.5 MG-* Inhale 3 mL as instructed leanne* ISOSORBIDE MONONITRATE ER 30 * TAKE THREE TABLETS BY MOUTH O* METOCLOPRAMIDE 5 MG TABLET Take 0.5 tablets by mouth thr* NITROGLYCERIN 0.4 MG SUBLINGU* Dissolve 1 tablet under the t* NYSTATIN 100,000 UNIT/GRAM TO* Apply 1 application to affect* ONDANSETRON HCL 4 MG TABLET Take 1 tablet by mouth every * OXYGEN (HOME THERAPY) Inhale 2.5 L/min as instructe* PANTOPRAZOLE 40 MG TABLET,DEL* Take 1 tablet by mouth once d* POLYETHYLENE GLYCOL 3350 17 G* Use 1-2 times daily as needed* PREGABALIN 25 MG CAPSULE Take 1 tablet PO daily with a* SENNOSIDES 8.6 MG TABLET Take 8.6 mg by mouth once carlos* SILVER SULFADIAZINE 1 % TOPIC* Apply 1 application to affect* SIMVASTATIN 40 MG TABLET Take 1 tablet by mouth every * Problem List As Of Date 10/06/2018 Noted Resolved HOCM (hypertrophic obstructive cardiomyopathy) * 01/23/2018 More... SVT (supraventricular tachycardia) (HCC) [I47.1] 01/21/2018 More... Carotid artery disease (HCC) [I77.9] 01/22/2018 CAD (coronary artery disease) [I25.10] More... Hypertension [I10] More... Hyperlipidemia [E78.5] Pneumonia [J18.9] 10/27/2017 More... COPD (chronic obstructive pulmonary disease) (H* More... Sleep apnea [G47.30] More... HH (hiatus hernia) [K44.9] 01/21/2018 GERD (gastroesophageal reflux disease) [K21.9] More... More... Arthritis [M19.90] Numbness and tingling of right leg [R20.0, R20.* 01/21/2018 Depression [F32.9] Atrial fibrillation (HCC) [I48.91] INVALID FOR* More... Controlled type 2 diabetes mellitus with chroni*INVALID FOR* More... More... More... Heart failure, systolic, acute (HCC) [I50.21] INVALID FOR*01/21/2018 More... Obesity [E66.09] INVALID FOR* More... Gout [M10.9] Pacemaker [Z95.0] More... Chronic combined systolic and diastolic CHF (co*INVALID FOR* More... Elevated troponin [R74.8] INVALID FOR*01/22/2018 More... Pulmonary hypertension (HCC) [I27.20] INVALID FOR* Oral thrush [B37.0] INVALID FOR*01/21/2018 Hyponatremia [E87.1] INVALID FOR* More... Hyperkalemia [E87.5] INVALID FOR*01/22/2018 Chest pain in adult [R07.9] INVALID FOR*02/12/2018 More... Acute renal failure superimposed on stage 3 chr*INVALID FOR* More... Obesity, Class II, BMI 35-39.9 [E66.9] INVALID FOR* ESRD on dialysis (HCC) [N18.6, Z99.2] INVALID FOR* More... Chronic hypoxemic respiratory failure (HCC) [J9*INVALID FOR* Bilateral leg ulcer, limited to breakdown of sk*INVALID FOR* ESRD (end stage renal disease) (HCC) [N18.6] INVALID FOR* More... AV fistula (HCC) [I77.0] INVALID FOR* More... Hypotension [I95.9] INVALID FOR* More... Chronic anticoagulation [Z79.01] INVALID FOR* Prescriptions ordered this encounter Disp Refills Start End IV CONTRAST (RADIOLOGY PROCEDURE) 1 Ea* 0 10/06/2018 10/06/2018 Class: In Office Sig: CT ABD/PEL -Inject, intravenously, once for 1 dose.No IV access, insert saline lock prior to the beginning of sedation, infusion, injection of imaging exam. Discontinue saline lock post exam. If Pt. has a central line or IVAD, may access for administration according to line specific nursing protocol. Once exam is complete flush line and de-access according to line specific nursing protocol in the CT contrast administration guidelines link. ENTERIC CONTRAST (RADIOLOGY PROCEDUR* 1 Ea* 0 10/06/2018 10/06/2018 Class: In Office Sig: For CT ABD/PEL W IVCON Routine order Administer, As Directed One Time Only, via Oral, Rectal, both Oral and Rectal, Enteric Tube, Stoma or Indwelling Catheter, Enteric Contrast as designated per enteric contrast guidelines DOCUSATE SODIUM 100 MG CAPSULE 60 c* 1 10/06/2018 Route: ORAL Sig: Take 1 capsule by mouth twice daily as needed for Constipation. PREGABALIN 25 MG CAPSULE 45 c* 2 10/06/2018 01/19/2019 Class: Print RX Sig: Take 1 tablet PO daily with an additional 1 tablet PO after dialysis MWF INSULIN GLARGINE (U-100) 100 UNIT/ML* 10/06/2018 Class: Med Update Sig: Night before dialysis (Wed, and ) pt is to take Lantus 18 units The other nights, (---Wed) pt is to take 28 units Lantus. ONDANSETRON HCL 4 MG TABLET 30 t* 2 10/06/2018 Route: ORAL Sig: Take 1 tablet by mouth every 8 hours as needed. BACITRACIN ZINC 500 UNIT/GRAM TOPICA* 1 Tu* 1 10/06/2018 10/06/2018 Route: TOPICAL Sig: Apply 1 application to affected area twice daily. TRIAMCINOLONE ACETONIDE 0.1 % TOPICA* 1 Tu* 1 10/06/2018 10/06/2018 Route: TOPICAL Sig: Apply 1 application to affected area twice daily. Apply sparingly to area for rash/itching. Medications Discontinued During This Encounter pregabalin (LYRICA) 25 mg capsule 45 c* 2 10/04/2018 10/06/2018 Class: Call Rx Sig: Take 1 tablet PO daily with an additional 1 tablet PO after dialysis MWF Disc: Reason for discontinue is not on file. ciprofloxacin HCl (CIPRO) 500 mg tab* 10/06/2018 Class: Historical Med Route: ORAL Sig: Take 500 mg by mouth once daily. Disc: Reason for discontinue is not on file. iv contrast (will be provided with r* 1 Ea* 0 10/06/2018 10/06/2018 Class: In Office Sig: CT ABD/PEL -Inject, intravenously, once for 1 dose.No IV access, insert saline lock prior to the beginning of sedation, infusion, injection of imaging exam. Discontinue saline lock post exam. If Pt. has a central line or IVAD, may access for administration according to line specific nursing protocol. Once exam is complete flush line and de-access according to line specific nursing protocol in the CT contrast administration guidelines link. Disc: Reason for discontinue is not on file. enteric contrast (will be provided w* 1 Ea* 0 10/06/2018 10/06/2018 Class: In Office Sig: For CT ABD/PEL W IVCON Routine order Administer, As Directed One Time Only, via Oral, Rectal, both Oral and Rectal, Enteric Tube, Stoma or Indwelling Catheter, Enteric Contrast as designated per enteric contrast guidelines Disc: Reason for discontinue is not on file. insulin glargine (LANTUS SOLOSTAR U-* 09/06/2018 10/06/2018 Class: Med Update Route: SUBCUTANEOUS Sig: Inject 28 Units subcutaneously daily at bedtime. Disc: Reason for discontinue is not on file. ondansetron (ZOFRAN) 4 mg tablet 10/06/2018 Class: Historical Med Route: ORAL Sig: Take 4 mg by mouth every 8 hours as needed. Disc: Reason for discontinue is not on file. bacitracin zinc (ANTIBIOTIC, BACITRA* 1 Tu* 1 06/21/2018 10/06/2018 Route: TOPICAL Sig: Apply 1 application to affected area twice daily. Disc: Reason for discontinue is not on file. bacitracin zinc (ANTIBIOTIC, BACITRA* 1 Tu* 1 10/06/2018 10/06/2018 Route: TOPICAL Sig: Apply 1 application to affected area twice daily. Disc: Reason for discontinue is not on file. triamcinolone acetonide (KENALOG) 0.* 1 Tu* 1 10/06/2018 10/06/2018 Route: TOPICAL Sig: Apply 1 application to affected area twice daily. Apply sparingly to area for rash/itching. Disc: Reason for discontinue is not on file. Disposition: Return in about 4 weeks (around 11/03/2018). Follow-up and Disposition History Recorded Encounter Status:Closed by JAMESON KAMARA MD on 10/06/18 PROGRESS Observed: 10/06/2018 Status: COMPLETED Source: [place] 9:39 AM [facility] REPOSITORY O ID: [id number] Author: Jameson Adams) [place] Service: (none) Author Type: Physician Type: Progress Notes Filed: 10/06/2018 1:26 PM Note Text: Chief Complaint Patient presents with: Hospital F/U: TCM 14 Pain: pt states hernia pain is a / HPI Luz Baca is a 78 year old female who presents here today for Hospital Discharge Follow up. Patient admitted to [facility] from 09/22 to 09/23 after developing hypotension s/p fistulogram with Dr. Hogan. Hospital course as follows: Hospital Course: Admitted for observation s/p fistulogram with Dr. Hogan due to hypotension at 85/58. This has been an ongoing problem recently with episodes of hypotension at dialysis. Her BP came up to 111/48 upon arrival to the floor. Imdur and Coreg was held overnight. She went for dialysis today and BP stayed stable, dropped to 88/56 at the lowest and otherwise remained SBP 100s. She is not feeling lightheaded and denies any significant right arm pain. Hematoma has spread 1in past previously drawn border, discussed with vascular surgery who said she is ok for discharge. Will plan to continue imdur on discharge but discontinue coreg. copy coordinator Remi Kennedy contacted patient early this week. TCM note below. TRANSITION CARE MANAGEMENT (TCM) FOLLOW-UP NOTE ? ? Provider Action/FYI ? Reviewed medication list with daughter ? States Eliquis, Coreg and Imdur were discontinued ? Pt is no longer taking Robitussin, Atarax, or using Pulmicort or Silvadene Using Duoneb nebulizer as needed ? Pt not taking Miralax due to fluid restriction and so much fluid removed at dialysis States nurse recommended Colace. (Also takes Senna without relief) ? Pt needs refill on Lyrica if PCP wants it continued. Also refill Zofran ? Pt is not taking correct evening dose of Lantus. Was supposed to take: Night before dialysis (Wed, and ) pt is to take Lantus 18 units The other nights, (---Wed) pt is to take 28 units Lantus. Pt is taking 20 units on Wed, , and 32 units ---Wed Pt has 4 BS written down 118, 141, 70, 120 Unsure date or time of BS Usually take FBS and BS before dinner ? Reglan ORDER PENDED FOR MED UPDATE, daughter states medication dose has been cut in half ? Please advise ? Patient states that she is still having hypotension episodes with dialysis since discharge from the hospital. Has not started the Imdur and is still holding the Eliquis and Coreg. Had follow up appointment with Dr. Cardona who stated she would benefit from restarting her beta lenny and recommended she follow up with dialysis for fluid status adjustment. Denies syncopal episodes. Has been nauseous recently, but able to keep down meals regularly. Complaining today of 7/10 epigastric pain over her site of ventral hernia with constipation over the last few days and nausea. Denies GI bleed, melena. Last BM was yesterday. Taking Senna which has not been much help. Requesting rx for Colace as she cannot take miralax due to fluid restriction. Wounds in LE bilaterally with itching and serous drainage without purulent effusion. Has been seen by home health who requested Unna boot, has not gotten them yet. Has legs wrapped in gauze today. Applying neosporin OTC. Has not restarted Elqius as she has not been cleared by Dr. Claudio for history of GI bleed. Is supposed to be following up with their office for EGD. Will contact today to get appointment dates. Past medical history, appointments, medications, allergies reviewed. Previous Medical History PAST MEDICAL HISTORY Diagnosis Date - Arthritis - Atrial fibrillation (HCC) - CAD (coronary artery disease) stents x9, defibrillator, CABG. Seeing Dr. Cardona - Cardiac defibrillator in place - Cardiomegaly - Carotid artery disease (HCC) left - Chronic hypoxemic respiratory failure ([facility]) 07/01/2018 - COPD (chronic obstructive pulmonary disease) ([facility]) Dr. Cruz - Depression - Diabetes (HCC) - Diabetic neuropathy ([facility]) - Edema - ESRD (end stage renal disease) on dialysis ([facility]) ZACH Nieto, Dr. Swartz - GERD (gastroesophageal reflux disease) - Gout with hyperuricemia - HH (hiatus hernia) - HOCM (hypertrophic obstructive cardiomyopathy) ([facility]) S/P Septal Myectomy in 2003. Now with LVEF 50% and mod/severe pulm HTN with tricuspid regurgitation - HTN (hypertension) - Hyperlipidemia - Morbid obesity with BMI of 40.0-44.9, adult ([facility]) - Presence of combination internal cardiac defibrillator (ICD) and pacemaker - Sleep apnea 2011 not on CPAP, unable to tolerate mask 02/2017 - SVT (supraventricular tachycardia) ([facility]) NSVT and questionable VT in 2003 post op Previous Surgical History PAST SURGICAL HISTORY Procedure Laterality Date - CHOLECYSTECTOMY HX - DIALYSIS ACCESS SYSTEM - HEART SURGERY HX 07/18/2004 Septal myectomy and CABG x2 (DEBORAH-LAD, SVG-PDA). - HYSTERECTOMY HX - IANDD PERIANAL ABSCESS - PACEMAKER with defib - PAST SURGICAL HISTORY OF left breast nodule removed - PAST SURGICAL HISTORY OF skin lesions removed - STENT PLACEMENT coronary Family History FAMILY HISTORY Problem Relation Age of Onset - Hypertension Mother living at age 93, HTN - Heart Failure Mother [place] - Cancer Father age 71, lung cancer - Heart Attack Sister - COPD Brother - Heart Paternal Grandmother - Heart Paternal Grandfather - Heart Sister - Diabetes Sister - Heart Sister - Breast Cancer Sister - Diabetes Sister - Hypertension Brother - Diabetes Brother Patient Allergies ALLERGIES Allergen Reactions - Aspirin Other: See Comments Patient states that she bled out every orifice, sts not allowed to take it at all. Patient states she was bleeding out of nose and mouth after one dose. - Bactrim [Sulfametho* Other: See Comments My throat swells up. - Latex Rash, Itching Itching and welts. No wheezing or shortness of breath. - Penicillins Rash, Itching Tolerated ceftriaxone during 11/2017 admission and cefepime during 12/2017 admission - Tetracycline Rash, GI Upset Emesis and diarrhea. - Atorvastatin Rash - Codeine Other: See Comments Numbness - Dilaudid [Hydromorp* Mental Status Change - Meperidine - Pentazocine - Pioglitazone Unknown - Propoxyphene Current Medications Current Outpatient Prescriptions on File Prior to Visit: amiodarone (PACERONE) 200 mg tablet Take 1 tablet by mouth once daily. apixaban (ELIQUIS) 5 mg tab(s) Take 1 tablet by mouth twice daily. (Patient not taking: Reported on 09/27/2018 ) bacitracin zinc (ANTIBIOTIC, BACITRACIN ZINC,) 500 unit/gram ointment Apply 1 application to affected area twice daily. budesonide (PULMICORT) 0.5 mg/2 mL nebulizer solution Use 2 mL via nebulizer once daily. INHALE 2 ML BY NEBULIZER OVER 5-15 MINUTES EVERY 12 HOURS. COMPOUNDED PRESCRIPTION Rosalind boots to be worn daily for DX: superficial wounds on LE bilaterally. guaiFENesin-dextromethorphan (ROBITUSSIN DM) 100-10 mg/5 mL syrup Take 5-10 mL by mouth every 6 hours as needed for Cough. hydrOXYzine HCl (ATARAX) 25 mg tablet Take 1 tablet by mouth every 12 hours as needed for Itching/Rash. insulin aspart U-100 (NOVOLOG FLEXPEN U-100 INSULIN) 100 unit/mL inpn Using Sliding Scale: 150-209 1 unit, 210-269 2 units, 270- 329 3 units, 330-389 4 units, 390-449 5 units insulin glargine (LANTUS SOLOSTAR U-100 INSULIN) 100 unit/mL (3 mL) inpn Inject 50 Units subcutaneously every morning. insulin glargine (LANTUS SOLOSTAR U-100 INSULIN) 100 unit/mL (3 mL) inpn Inject 28 Units subcutaneously daily at bedtime. ipratropium-albuterol (DUONEB) 0.5 mg-3 mg(2.5 mg base)/3 mL nebu Inhale 3 mL as instructed every 4 hours while awake. And prn for wheezing/shortness of breath. isosorbide mononitrate ER (IMDUR) 30 mg 24 hr tablet TAKE THREE TABLETS BY MOUTH ONCE DAILY metoclopramide HCl (REGLAN) 5 mg tablet Take 0.5 tablets by mouth three times daily. nitroglycerin sublingual (NITROQUICK) 0.4 mg SL tablet Dissolve 1 tablet under the tongue every 5 minutes as needed. nystatin (NYSTOP) powder Apply 1 application to affected area three times daily. ondansetron (ZOFRAN) 4 mg tablet Take 4 mg by mouth every 8 hours as needed. OXYGEN, HOME THERAPY, Inhale 2.5 L/min as instructed continuous. 3 L/min when leaves home. pantoprazole DR (PROTONIX) 40 mg tablet Take 1 tablet by mouth once daily. polyethylene glycol 3350 (MIRALAX) 17 gram/dose powder Use 1-2 times daily as needed for constipation. pregabalin (LYRICA) 25 mg capsule Take 1 tablet PO daily with an additional 1 tablet PO after dialysis MWF senna (SENNA) 8.6 mg tab Take 8.6 mg by mouth once daily. silver sulfADIAZINE (SILVADENE,THERMAZENE) 1 % cream Apply 1 application to affected area once daily. simvastatin (ZOCOR) 40 mg tablet Take 1 tablet by mouth every morning. No current facility-administered medications on file prior to visit. Social History Social History Marital status: Spouse name: Years of education: Number of children: Social History Main Topics Smoking status: Former Smoker Packs/day: 2.50 Years: 43.00 Types: Cigarettes Start date: 1961 Quit date: 07/07/2004 Smokeless tobacco: Never Used Alcohol use: No Drug use: No Other Topics Concern Caffeine Concern Yes Comment:coffee 1 cup daily Special Diet No Comment:Regular Exercise No Comment:no unable, due to SOB x several months. Social History Narrative Patient and daughter live together. Review of Symptoms REVIEW OF SYSTEMS GENERAL: No weight loss, malaise or fevers RESPIRATORY: Negative for cough, hemoptysis, wheezing, COPD, dyspnea or shortness of breath CARDIOVASCULAR: Negative for chest pain, leg swelling, hypertension, CHF or palpitations GI: See HPI SKIN: See HPI EXAM: BP 112/66 Pulse 88 Resp 20 Wt 93 kg (205 lb) BMI 31.17 kg/m? General Appearance: Well appearing, alert, in no acute distress, well-hydrated, well nourished.. Skin: confluent maculopapular rashes over anterior shins bilaterally, left worse than right, with serous drainage. Lungs: lungs clear to auscultation. No wheezing, rhonchi, rales. Heart: RRR without murmur, gallop, or rubs. No ectopy. Abdomen: Abdomen soft. Bowel sounds normal. Positive findings: ventral hernia in epigastric region which is TTP and partially reducible. Voluntary guarding on exam without rebound. Extremities: no edema. . Health Maintenance List DAMION/ARB MED PRESCRIBED due on 06/23/2018 DILATED RETINAL EXAM due on 10/27/2018 STATIN MED ADHERENCE due on 10/18/2018 DIABETES MED ADHERENCE due on 10/18/2018 LUNG CANCER SCREENING due on 12/10/2018 DIABETIC FOOT EXAM due on 01/31/2019 HBA1C due on 02/02/2019 LDL CHOLESTEROL due on 05/25/2019 COLORECTAL CANCER SCREENING,SEE MODIFIER due on 07/05/2019 ANNUAL PCP TEAM CHRONIC DISEASE VISIT due on 09/19/2019 SERUM CREATININE due on 09/23/2019 HEMOGLOBIN/HEMATOCRIT due on 09/23/2019 BP CONTROLLED (<130/80) due on 09/27/2019 DTAP,TDAP,TD(2 - Td) due on 07/05/2028 BONE DENSITY Completed ADULT PREVNAR-13 Completed INFLUENZA Completed PNEUMOVAX AGE 65 AND OVER WITH 5YR LOOKBACK Completed ASSESSMENT/PLAN: 1. Hypotension, unspecified hypotension type - ICD9: 458.9, ICD10: I95.9 (primary diagnosis) Still having symptoms after dialysis. Hold coreg. Push fluid as able. F/u with dialysis. 2. Epigastric pain - ICD9: 789.06, ICD10: R10.13 Concern for strangulated hernia. Obtain STAT CT abd/pelvis and will call with results. Advised ER with worsening pain, nausea/vomiting leading to dehydration, GI bleed. - CIPROFLOXACIN 500 MG TABLET - CT ABD/PEL W IVCON - IV CONTRAST (RADIOLOGY PROCEDURE) - ENTERIC CONTRAST (RADIOLOGY PROCEDURE) - CREATININE, ISTAT - CBC + DIFF - CT ABD/PEL WO IVCON - ONDANSETRON HCL 4 MG TABLET 3. Constipation, unspecified constipation type - ICD9: 564.00, ICD10: K59.00 Add colace. Continue Senna. - CIPROFLOXACIN 500 MG TABLET - CT ABD/PEL W IVCON - IV CONTRAST (RADIOLOGY PROCEDURE) - ENTERIC CONTRAST (RADIOLOGY PROCEDURE) - CREATININE, ISTAT - DOCUSATE SODIUM 100 MG CAPSULE - ONDANSETRON HCL 4 MG TABLET 4. Ventral hernia without obstruction or gangrene - ICD9: 553.20, ICD10: K43.9 See #2 - CIPROFLOXACIN 500 MG TABLET - CT ABD/PEL W IVCON - IV CONTRAST (RADIOLOGY PROCEDURE) - ENTERIC CONTRAST (RADIOLOGY PROCEDURE) - CREATININE, ISTAT 5. Other impaction of intestine (HCC) - ICD9: 560.39, ICD10: K56.49 See #2 - CIPROFLOXACIN 500 MG TABLET - CT ABD/PEL W IVCON - IV CONTRAST (RADIOLOGY PROCEDURE) - ENTERIC CONTRAST (RADIOLOGY PROCEDURE) - CREATININE, ISTAT 6. Diabetic polyneuropathy associated with type 2 diabetes mellitus (HCC) - ICD9: 250.60, 357.2, ICD10: E11.42 Refill lyrica per request. - PREGABALIN 25 MG CAPSULE 7. Intestinal obstruction, unspecified cause, unspecified whether partial or complete (HCC) - ICD9: 560.9, ICD10: K56.609 See #2 - CT ABD/PEL WO IVCON 8. Open wounds involving multiple regions of lower extremity - ICD9: 894.0, ICD10: S81.809A Referral to wound care and unna boots per home health. 9. Chronic anticoagulation - ICD9: V58.61, ICD10: Z79.01 Patient has appointment with Dr. Claudio on 10/13, will discuss restarting Eliquis at that time as she has upcoming EGD on 10/31. Jameson Kamara MD CNPTOUTREACH Observed: 10/06/2018 Status: COMPLETED Source: [place] 12:00 AM [facility] REPOSITORY Patient Outreach (FAMPWS) LUZ BACA ([id number]) 1940 F Date Time Provider Department 10/06/18 REMI KENNEDY (RN) FAMPWS During your visit today, we recorded the following information about you: Remi Kennedy RN 10/06/2018 11:42 AM Signed PRIMARY CARE COORDINATION IN OFFICE VISIT WITH PCP Patient has been identified by name and date of . PCP Assessment/Plan: Reviewed PCP plan with patient using Teach Back Discussed BS readings, pt forgot meter. PCC will call home health nurse re: BS readings and reviewing PM insulin doses. PCC Plan of Care: Patient concerns: Abdominal pain and constipation PCC Interventions: TC nia Wood at [facility], instructed form HH nurse to apply Unna Boot tomorrow instead of using Bacitracin and Kenalog, verbalized understanding TC to Li at [facility], informed pt was seen by PCP today and reviewed abd pain, stat CT, Medication orders and refills. Instructed nurse to call from home tomorrow with pt's BS from [facility] and to re-instruct patient and daughter with correct dose of PM Lantus insulin: Night before dialysis (Sun, and ) pt is to take Lantus 18 units The other nights, (--Wed) pt is to take 28 units Lantus. Gave PCC name and number so they can call directly. TC to Jonny at Dr. Claudio's office, discussed pt's repeat EGD, states it is scheduled at [facility] on 10/31. States pt needs another appt within 30 days of EGD. Scheduled appt for 10/13 at 2:10. Informed pt is having stat CT abd today for ventral hernia pain. Next Office Visit: 11/03/2018 Plan For Next Call: Next week ALLYSON Buck RN October 06, 2018 Remi Kennedy RN 10/06/2018 12:11 PM Signed PRIMARY CARE COORDINATION QUICK NOTE Provider Action/FYI FYI Patient identified by name and date . TC from Li, [facility], reviewed orders given to office below. Call with BS tomorrow, reinstruct on Lantus insulin doses, apply Unna Boot, updated medication list verbally and will fax AVS Remi Kennedy RN 10/06/2018 3:32 PM Signed PRIMARY CARE COORDINATION QUICK NOTE Provider Action/FYI FYI Patient identified by name and date . TC from daughter, Octavia, states pt cannot get appt to [facility] until 10/27. Informed PCC spoke with PCP and he is okay with waiting until then for appt because the [facility] nurse is coming tomorrow to put on special dressings, verbalized understanding. Asked about stat CT scan results. J Podlogar reviewed results and states pt will probably need to be treated for diverticulitis, no strangulated hernia. Informed PCP office will call back after PCP reviews results, verbalized agreement. Remi Kennedy RN October 06, 2018 3:32 PM Allergies As of Date: 10/06/2018 Noted Allergy Reaction ASPIRIN 01/20/2018 14 - Other: See Comments Comments: Patient states that she bled out every orifice, sts not allowed to take it at all. Patient states she was bleeding out of nose and mouth after one dose. BACTRIM (SULFAMETHOXAZOLE-TRIMETH*05/17/2017 14 - Other: See Comments Comments: My throat swells up. LATEX 05/17/2017 2 - Rash 9 - Itching Comments: Itching and welts. No wheezing or shortness of breath. PENICILLINS 07/14/2004 2 - Rash 9 - Itching Comments: Tolerated ceftriaxone during 11/2017 admission and cefepime during 12/2017 admission TETRACYCLINE 09/29/2010 2 - Rash 8 - GI Upset Comments: Emesis and diarrhea. 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] Prescriptions as of 10/06/2018 Sig: AMIODARONE 200 MG TABLET Take 1 tablet by mouth once d* APIXABAN 5 MG TABLET Take 1 tablet by mouth twice * Patient not taking: Reported on 09/27/2018 BUDESONIDE 0.5 MG/2 ML SUSPEN* Use 2 mL via nebulizer once d* COMPOUNDED PRESCRIPTION Rosalind boots to be worn daily fo* DOCUSATE SODIUM 100 MG CAPSULE Take 1 capsule by mouth twice* DEXTROMETHORPHAN-GUAIFENESIN * Take 5-10 mL by mouth every 6* HYDROXYZINE HCL 25 MG TABLET Take 1 tablet by mouth every * INSULIN ASPART U-100 100 UNI* Using Sliding Scale: 150-209* INSULIN GLARGINE (U-100) 100 * Inject 50 Units subcutaneousl* INSULIN GLARGINE (U-100) 100 * Night before dialysis ([place], T* IPRATROPIUM-ALBUTEROL 0.5 MG-* Inhale 3 mL as instructed leanne* ISOSORBIDE MONONITRATE ER 30 * TAKE THREE TABLETS BY MOUTH O* METOCLOPRAMIDE 5 MG TABLET Take 0.5 tablets by mouth thr* NITROGLYCERIN 0.4 MG SUBLINGU* Dissolve 1 tablet under the t* NYSTATIN 100,000 UNIT/GRAM TO* Apply 1 application to affect* ONDANSETRON HCL 4 MG TABLET Take 1 tablet by mouth every * OXYGEN (HOME THERAPY) Inhale 2.5 L/min as instructe* PANTOPRAZOLE 40 MG TABLET,DEL* Take 1 tablet by mouth once d* POLYETHYLENE GLYCOL 3350 17 G* Use 1-2 times daily as needed* PREGABALIN 25 MG CAPSULE Take 1 tablet PO daily with a* SENNOSIDES 8.6 MG TABLET Take 8.6 mg by mouth once carlos* SILVER SULFADIAZINE 1 % TOPIC* Apply 1 application to affect* SIMVASTATIN 40 MG TABLET Take 1 tablet by mouth every * X BACITRACIN ZINC 500 UNIT/GRAM* Apply 1 application to affect* X TRIAMCINOLONE ACETONIDE 0.1 %* Apply 1 application to affect* Problem List As Of Date 10/06/2018 Noted Resolved HOCM (hypertrophic obstructive cardiomyopathy) * 01/23/2018 More... SVT (supraventricular tachycardia) ([facility]) [I47.1] 01/21/2018 More... Carotid artery disease (HCC) [I77.9] 01/22/2018 CAD (coronary artery disease) [I25.10] More... Hypertension [I10] More... Hyperlipidemia [E78.5] Pneumonia [J18.9] 10/27/2017 More... COPD (chronic obstructive pulmonary disease) (H* More... Sleep apnea [G47.30] More... HH (hiatus hernia) [K44.9] 01/21/2018 GERD (gastroesophageal reflux disease) [K21.9] More... More... Arthritis [M19.90] Numbness and tingling of right leg [R20.0, R20.* 01/21/2018 Depression [F32.9] Atrial fibrillation (HCC) [I48.91] INVALID FOR* More... Controlled type 2 diabetes mellitus with chroni*INVALID FOR* More... More... More... Heart failure, systolic, acute (HCC) [I50.21] INVALID FOR*01/21/2018 More... Obesity [E66.09] INVALID FOR* More... Gout [M10.9] Pacemaker [Z95.0] More... Chronic combined systolic and diastolic CHF (co*INVALID FOR* More... Elevated troponin [R74.8] INVALID FOR*01/22/2018 More... Pulmonary hypertension (HCC) [I27.20] INVALID FOR* Oral thrush [B37.0] INVALID FOR*01/21/2018 Hyponatremia [E87.1] INVALID FOR* More... Hyperkalemia [E87.5] INVALID FOR*01/22/2018 Chest pain in adult [R07.9] INVALID FOR*02/12/2018 More... Acute renal failure superimposed on stage 3 chr*INVALID FOR* More... Obesity, Class II, BMI 35-39.9 [E66.9] INVALID FOR* ESRD on dialysis (HCC) [N18.6, Z99.2] INVALID FOR* More... Chronic hypoxemic respiratory failure (HCC) [J9*INVALID FOR* Bilateral leg ulcer, limited to breakdown of sk*INVALID FOR* ESRD (end stage renal disease) (HCC) [N18.6] INVALID FOR* More... AV fistula (HCC) [I77.0] INVALID FOR* More... Hypotension [I95.9] INVALID FOR* More... Chronic anticoagulation [Z79.01] INVALID FOR* Encounter Status:Closed by ERMI KENNEDY on 10/06/18 PROGRESS Observed: 10/05/2018 Status: COMPLETED Source: [place] 2:28 PM [facility] REPOSITORY HNO ID: [id number] Author: Jameson Adams) Koffi Service: (none) Author Type: Physician Type: Progress Notes Filed: 10/05/2018 2:28 PM Note Text: Reviewed. Thanks. PROGRESS Observed: 10/05/2018 Status: COMPLETED Source: [place] 1:53 PM [facility] REPOSITORY HNO ID: [id number] Author: Remi Briseno) Brent Service: (none) Author Type: Registered Nurse Type: Progress Notes Filed: 10/05/2018 2:49 PM Note Text: PRIMARY CARE COORDINATION QUICK NOTE Provider Action/FYI FYI Patient identified by name and date . Pt is coming in for an appt tomorrow with PCP, I feel they will understand the doses of insulin better if they are taught face to face with written instructions included. Remi Kennedy RN PROGRESS Observed: 10/04/2018 Status: COMPLETED Source: [place] 6:14 PM [facility] REPOSITORY HNO ID: [id number] Author: Jameson Adams) Koffi Service: (none) Author Type: Physician Type: Progress Notes Filed: 10/04/2018 6:16 PM Note Text: Dr. Cardona recommending restarting Eliquis when cleared by GI standpoint as well as beta lenny if able to tolerate with hypotension. Agree with use of colace. Will discuss lyrica refill at OV on 10/06. Patient with hypoglycemic episode as she is taking insulin now. Recommend she return to previous dosage as ordered. meds updated. PROGRESS Observed: 10/03/2018 Status: COMPLETED Source: [place] 4:41 PM [facility] REPOSITORY HNO ID: [id number] Author: Remi Briseno) Brent Service: (none) Author Type: Registered Nurse Type: Progress Notes Filed: 10/03/2018 5:36 PM Note Text: TRANSITION CARE MANAGEMENT (TCM) FOLLOW-UP NOTE Provider Action/FYI Reviewed medication list with daughter States Eliquis, Coreg and Imdur were discontinued Pt is no longer taking Robitussin, Atarax, or using Pulmicort or Silvadene Using Duoneb nebulizer as needed Pt not taking Miralax due to fluid restriction and so much fluid removed at dialysis States HH nurse recommended Colace. (Also takes Senna without relief) Pt needs refill on Lyrica if PCP wants it continued. Also refill Zofran Pt is not taking correct evening dose of Lantus. Was supposed to take: Night before dialysis (Wed, and urs) pt is to take Lantus 18 units The other nights, (---Wed) pt is to take 28 units Lantus. Pt is taking 20 units on Wed, , and 32 units ---Wed Pt has 4 BS written down 118, 141, 70, 120 Unsure date or time of BS Usually take FBS and BS before dinner Reglan ORDER PENDED FOR MED UPDATE, daughter states medication dose has been cut in half Please advise Patient identified by name and date of : YES Spoke to Octavia mesa Summary: Medications reviewed. See above Watermelon Inspector plan for next outreach: Will follow up one week Signature Remi Kennedy RN October 03, 2018 CNPN Observed: 10/03/2018 Status: COMPLETED Source: [place] 12:00 AM [facility] RE[facility]ITORY [facility] LUZ BACA ([id number]) 1940 F Date Time Provider Department 10/03/18 JAMESON KAMARA) [facility] During your visit today, we recorded the following information about you: Jenni Jacobo RN 10/03/2018 9:50 AM Signed Home Health nurse Li calling from [facility] [place] #[phone]. Reports patient has PCP appt. This , 10/06 for hospital/SNF follow up. Patient showed home health nurse a few medications that she has at home but is not on discharge list from SNF. She will bring to upcoming appointment to review with PCP in office to reconcile medications. After 10/06 appointment, Please fax office note and updated med list to [facility] at fax # [phone]. Thank you, ALLYSON Epps MD 10/03/2018 10:14 AM Signed Reviewed, will fax note and med list after OV. What are medications that were different from her discharge list? Remi Kennedy RN 10/03/2018 4:37 PM Signed See PCC Outreach Encounter Remi Kennedy RN October 03, 2018 4:36 PM Allergies As of Date: 10/03/2018 Noted Allergy Reaction ASPIRIN 01/20/2018 14 - Other: See Comments Comments: Patient states that she bled out every orifice, sts not allowed to take it at all. Patient states she was bleeding out of nose and mouth after one dose. BACTRIM (SULFAMETHOXAZOLE-TRIMETH*05/17/2017 14 - Other: See Comments Comments: My throat swells up. LATEX 05/17/2017 2 - Rash 9 - Itching Comments: Itching and welts. No wheezing or shortness of breath. PENICILLINS 07/14/2004 2 - Rash 9 - Itching Comments: Tolerated ceftriaxone during 11/2017 admission and cefepime during 12/2017 admission TETRACYCLINE 09/29/2010 2 - Rash 8 - GI Upset Comments: Emesis and diarrhea. ATORVASTATIN 05/17/2017 2 - Rash CODEINE 05/17/2017 14 - Other: See Comments Comments: Numbness DILAUDID (HYDROMORPHONE (BULK)) 05/17/2017 1 - Mental Status Change MEPERIDINE 07/14/2004 PENTAZOCINE 07/14/2004 PIOGLITAZONE 05/17/2017 16 - Unknown PROPOXYPHENE 07/14/2004 Date Reviewed: 09/27/2018 Reviewed by: Katie Gonzalez RN - Fully Assessed Reason for Visit: home health update [Other] Reason For Visit History Recorded Prescriptions as of 10/03/2018 Sig: AMIODARONE 200 MG TABLET Take 1 tablet by mouth once d* BACITRACIN ZINC 500 UNIT/GRAM* Apply 1 application to affect* INSULIN ASPART U-100 100 UNI* Using Sliding Scale: 150-209* INSULIN GLARGINE (U-100) 100 * Inject 50 Units subcutaneousl* IPRATROPIUM-ALBUTEROL 0.5 MG-* Inhale 3 mL as instructed leanne* NITROGLYCERIN 0.4 MG SUBLINGU* Dissolve 1 tablet under the t* NYSTATIN 100,000 UNIT/GRAM TO* Apply 1 application to affect* OXYGEN (HOME THERAPY) Inhale 2.5 L/min as instructe* PANTOPRAZOLE 40 MG TABLET,DEL* Take 1 tablet by mouth once d* SENNOSIDES 8.6 MG TABLET Take 8.6 mg by mouth once carlos* SIMVASTATIN 40 MG TABLET Take 1 tablet by mouth every * APIXABAN 5 MG TABLET Take 1 tablet by mouth twice * Patient not taking: Reported on 09/27/2018 BUDESONIDE 0.5 MG/2 ML SUSPEN* Use 2 mL via nebulizer once d* DEXTROMETHORPHAN-GUAIFENESIN * Take 5-10 mL by mouth every 6* HYDROXYZINE HCL 25 MG TABLET Take 1 tablet by mouth every * INSULIN GLARGINE (U-100) 100 * Inject 28 Units subcutaneousl* ISOSORBIDE MONONITRATE ER 30 * TAKE THREE TABLETS BY MOUTH O* METOCLOPRAMIDE 5 MG TABLET Take 1 tablet by mouth three * ONDANSETRON HCL 4 MG TABLET Take 4 mg by mouth every 8 ho* POLYETHYLENE GLYCOL 3350 17 G* Use 1-2 times daily as needed* PREGABALIN 25 MG CAPSULE Take 1 tablet PO daily with a* SILVER SULFADIAZINE 1 % TOPIC* Apply 1 application to affect* Problem List As Of Date 10/03/2018 Noted Resolved HOCM (hypertrophic obstructive cardiomyopathy) * 01/23/2018 More... SVT (supraventricular tachycardia) (HCC) [I47.1] 01/21/2018 More... Carotid artery disease (HCC) [I77.9] 01/22/2018 CAD (coronary artery disease) [I25.10] More... Hypertension [I10] More... Hyperlipidemia [E78.5] Pneumonia [J18.9] 10/27/2017 More... COPD (chronic obstructive pulmonary disease) (H* More... Sleep apnea [G47.30] More... HH (hiatus hernia) [K44.9] 01/21/2018 GERD (gastroesophageal reflux disease) [K21.9] More... More... Arthritis [M19.90] Numbness and tingling of right leg [R20.0, R20.* 01/21/2018 Depression [F32.9] Atrial fibrillation (HCC) [I48.91] INVALID FOR* More... Controlled type 2 diabetes mellitus with chroni*INVALID FOR* More... More... More... Heart failure, systolic, acute (HCC) [I50.21] INVALID FOR*01/21/2018 More... Obesity [E66.09] INVALID FOR* More... Gout [M10.9] Pacemaker [Z95.0] More... Chronic combined systolic and diastolic CHF (co*INVALID FOR* More... Elevated troponin [R74.8] INVALID FOR*01/22/2018 More... Pulmonary hypertension (HCC) [I27.20] INVALID FOR* Oral thrush [B37.0] INVALID FOR*01/21/2018 Hyponatremia [E87.1] INVALID FOR* More... Hyperkalemia [E87.5] INVALID FOR*01/22/2018 Chest pain in adult [R07.9] INVALID FOR*02/12/2018 More... Acute renal failure superimposed on stage 3 chr*INVALID FOR* More... Obesity, Class II, BMI 35-39.9 [E66.9] INVALID FOR* ESRD on dialysis (HCC) [N18.6, Z99.2] INVALID FOR* More... Chronic hypoxemic respiratory failure (HCC) [J9*INVALID FOR* Bilateral leg ulcer, limited to breakdown of sk*INVALID FOR* ESRD (end stage renal disease) (HCC) [N18.6] INVALID FOR* More... AV fistula (HCC) [I77.0] INVALID FOR* More... Hypotension [I95.9] INVALID FOR* More... Encounter Status:Closed by REMI KENNEDY on 10/03/18 [facility] Observed: 10/03/2018 Status: COMPLETED Source: [place] 12:00 AM [facility] REPOSITORY Patient Outreach (FAMPWS) LUZ BACA ([id number]) 1940 F Date Time Provider Department 10/03/18 REMI KENNEDY (RN) FAMPWS During your visit today, we recorded the following information about you: Remi Kennedy RN 10/03/2018 5:36 PM Addendum TRANSITION CARE MANAGEMENT (TCM) FOLLOW-UP NOTE Provider Action/FYI Reviewed medication list with daughter States Eliquis, Coreg and Imdur were discontinued Pt is no longer taking Robitussin, Atarax, or using Pulmicort or Silvadene Using Duoneb nebulizer as needed Pt not taking Miralax due to fluid restriction and so much fluid removed at dialysis States nurse recommended Colace. (Also takes Senna without relief) Pt needs refill on Lyrica if PCP wants it continued. Also refill Zofran Pt is not taking correct evening dose of Lantus. Was supposed to take: Night before dialysis (Wed, and ) pt is to take Lantus 18 units The other nights, (---Wed) pt is to take 28 units Lantus. Pt is taking 20 units on Wed, , and 32 units ---Wed Pt has 4 BS written down 118, 141, 70, 120 Unsure date or time of BS Usually take FBS and BS before dinner Reglan ORDER PENDED FOR MED UPDATE, daughter states medication dose has been cut in half Please advise Patient identified by name and date of : YES Spoke to Octavia mesa Summary: Medications reviewed. See above Watermelon Inspector plan for next outreach: Will follow up one week Signature Remi Kennedy RN October 03, 2018 Jameson Kamara MD 10/04/2018 6:[address] Cardona recommending restarting Eliquis when cleared by GI standpoint as well as beta lenny if able to tolerate with hypotension. Agree with use of colace. Will discuss lyrica refill at OV on 10/06. Patient with hypoglycemic episode as she is taking insulin now. Recommend she return to previous dosage as ordered. meds updated. Remi Kennedy RN 10/05/2018 2:49 PM Signed PRIMARY CARE COORDINATION QUICK NOTE Provider Action/FYI FYI Patient identified by name and date . Pt is coming in for an appt tomorrow with PCP, I feel they will understand the doses of insulin better if they are taught face to face with written instructions included. ALLYSON Buck MD 10/05/2018 2:28 PM Signed Reviewed. Thanks. Allergies As of Date: 10/03/2018 Noted Allergy Reaction ASPIRIN 01/20/2018 14 - Other: See Comments Comments: Patient states that she bled out every orifice, sts not allowed to take it at all. Patient states she was bleeding out of nose and mouth after one dose. BACTRIM (SULFAMETHOXAZOLE-TRIMETH*05/17/2017 14 - Other: See Comments Comments: My throat swells up. LATEX 05/17/2017 2 - Rash 9 - Itching Comments: Itching and welts. No wheezing or shortness of breath. PENICILLINS 07/14/2004 2 - Rash 9 - Itching Comments: Tolerated ceftriaxone during 11/2017 admission and cefepime during 12/2017 admission TETRACYCLINE 09/29/2010 2 - Rash 8 - GI Upset Comments: Emesis and diarrhea. 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 [6341] Cmt: BRANDIE F/U Call #1 Order(s):metoclopramide HCl (REGLAN) 5 mg tabletTake 0.5 tablets by mouth three times daily.Disp: 90 tabletRfl: 2 Prescriptions as of 10/03/2018 Sig: AMIODARONE 200 MG TABLET Take 1 tablet by mouth once d* APIXABAN 5 MG TABLET Take 1 tablet by mouth twice * Patient not taking: Reported on 09/27/2018 BACITRACIN ZINC 500 UNIT/GRAM* Apply 1 application to affect* BUDESONIDE 0.5 MG/2 ML SUSPEN* Use 2 mL via nebulizer once d* DEXTROMETHORPHAN-GUAIFENESIN * Take 5-10 mL by mouth every 6* HYDROXYZINE HCL 25 MG TABLET Take 1 tablet by mouth every * INSULIN ASPART U-100 100 UNI* Using Sliding Scale: 150-209* INSULIN GLARGINE (U-100) 100 * Inject 50 Units subcutaneousl* INSULIN GLARGINE (U-100) 100 * Inject 28 Units subcutaneousl* IPRATROPIUM-ALBUTEROL 0.5 MG-* Inhale 3 mL as instructed leanne* ISOSORBIDE MONONITRATE ER 30 * TAKE THREE TABLETS BY MOUTH O* METOCLOPRAMIDE 5 MG TABLET Take 0.5 tablets by mouth thr* NITROGLYCERIN 0.4 MG SUBLINGU* Dissolve 1 tablet under the t* NYSTATIN 100,000 UNIT/GRAM TO* Apply 1 application to affect* ONDANSETRON HCL 4 MG TABLET Take 4 mg by mouth every 8 ho* OXYGEN (HOME THERAPY) Inhale 2.5 L/min as instructe* PANTOPRAZOLE 40 MG TABLET,DEL* Take 1 tablet by mouth once d* POLYETHYLENE GLYCOL 3350 17 G* Use 1-2 times daily as needed* SENNOSIDES 8.6 MG TABLET Take 8.6 mg by mouth once carlos* SILVER SULFADIAZINE 1 % TOPIC* Apply 1 application to affect* SIMVASTATIN 40 MG TABLET Take 1 tablet by mouth every * X PREGABALIN 25 MG CAPSULE Take 1 tablet PO daily with a* Problem List As Of Date 10/03/2018 Noted Resolved HOCM (hypertrophic obstructive cardiomyopathy) * 01/23/2018 More... SVT (supraventricular tachycardia) (HCC) [I47.1] 01/21/2018 More... Carotid artery disease (HCC) [I77.9] 01/22/2018 CAD (coronary artery disease) [I25.10] More... Hypertension [I10] More... Hyperlipidemia [E78.5] Pneumonia [J18.9] 10/27/2017 More... COPD (chronic obstructive pulmonary disease) (H* More... Sleep apnea [G47.30] More... HH (hiatus hernia) [K44.9] 01/21/2018 GERD (gastroesophageal reflux disease) [K21.9] More... More... Arthritis [M19.90] Numbness and tingling of right leg [R20.0, R20.* 01/21/2018 Depression [F32.9] Atrial fibrillation (HCC) [I48.91] INVALID FOR* More... Controlled type 2 diabetes mellitus with chroni*INVALID FOR* More... More... More... Heart failure, systolic, acute (HCC) [I50.21] INVALID FOR*01/21/2018 More... Obesity [E66.09] INVALID FOR* More... Gout [M10.9] Pacemaker [Z95.0] More... Chronic combined systolic and diastolic CHF (co*INVALID FOR* More... Elevated troponin [R74.8] INVALID FOR*01/22/2018 More... Pulmonary hypertension (HCC) [I27.20] INVALID FOR* Oral thrush [B37.0] INVALID FOR*01/21/2018 Hyponatremia [E87.1] INVALID FOR* More... Hyperkalemia [E87.5] INVALID FOR*01/22/2018 Chest pain in adult [R07.9] INVALID FOR*02/12/2018 More... Acute renal failure superimposed on stage 3 chr*INVALID FOR* More... Obesity, Class II, BMI 35-39.9 [E66.9] INVALID FOR* ESRD on dialysis (HCC) [N18.6, Z99.2] INVALID FOR* More... Chronic hypoxemic respiratory failure (HCC) [J9*INVALID FOR* Bilateral leg ulcer, limited to breakdown of sk*INVALID FOR* ESRD (end stage renal disease) (HCC) [N18.6] INVALID FOR* More... AV fistula (HCC) [I77.0] INVALID FOR* More... Hypotension [I95.9] INVALID FOR* More... Prescriptions ordered this encounter Disp Refills Start End METOCLOPRAMIDE 5 MG TABLET 90 t* 2 10/04/2018 Class: Med Update Route: ORAL Sig: Take 0.5 tablets by mouth three times daily. Medications Discontinued During This Encounter metoclopramide HCl (REGLAN) 5 mg tab* 90 t* 2 05/26/2018 10/04/2018 Route: ORAL Sig: Take 1 tablet by mouth three times daily. Disc: Reason for discontinue is not on file. Encounter Status:Closed by REMI KENNEDY on 10/05/18 PROGRESS Observed: 09/27/2018 Status: COMPLETED Source: [place] 1:09 PM [facility] [place] REPOSITORY [facility] ID: [id number] Author: Jose C Rodriguez Service: (none) Author Type: Physician Type: Progress Notes Filed: 09/27/2018 1:47 PM Note Text: Follow up podiatric office visit for: Chief Complaint: This 78 year old who presents for follow up:blister of left hallux Patient blister remains healed. She has been seen for diabetic shoes but she just has not received them yet. She does complain of pain to b/l lower extremity and feet due to neuropathy. Patient does take lyrica for the neuropathy but that does not help She does have b/l lower extremity edema for which she has developed scattered sores. She is under management from Dr. Hogan and Dr. Kamara. She has no other complaints. PAIN EVALUATION 09/27/2018 Pain Score: 6 Pain Location: Other: See Comment bilateral feet Description: Throbbing Duration Amount of Time: - several Duration Units: Years Frequency: Intermittent Intervention: Medication;Relaxation Lyrica Hemoglobin A1C Date Value Ref Range Status 08/04/2018 6.3 (H) 4.3 - 5.6 % Final PCP: Jameson Kamara MD PAST MEDICAL HISTORY Diagnosis Date - Arthritis - Atrial fibrillation ([facility]) - CAD (coronary artery disease) stents x9, defibrillator, CABG. Seeing Dr. Cardona - Cardiac defibrillator in place - Cardiomegaly - Carotid artery disease ([facility]) left - Chronic hypoxemic respiratory failure ([facility]) 07/01/2018 - COPD (chronic obstructive pulmonary disease) ([facility]) Dr. Cruz - Depression - Diabetes ([facility]) - Diabetic neuropathy ([facility]) - Edema - ESRD (end stage renal disease) on dialysis ([facility]) [facility], Dr. Swartz - GERD (gastroesophageal reflux disease) - Gout with hyperuricemia - HH (hiatus hernia) - HOCM (hypertrophic obstructive cardiomyopathy) ([facility]) S/P Septal Myectomy in 2003. Now with LVEF 50% and mod/severe pulm HTN with tricuspid regurgitation - HTN (hypertension) - Hyperlipidemia - Morbid obesity with BMI of 40.0-44.9, adult ([facility]) - Presence of combination internal cardiac defibrillator (ICD) and pacemaker - Sleep apnea 2011 not on CPAP, unable to tolerate mask 02/2017 - SVT (supraventricular tachycardia) ([facility]) NSVT and questionable VT in 2003 post op Current Outpatient Prescriptions: amiodarone (PACERONE) 200 mg tablet Take 1 tablet by mouth once daily. bacitracin zinc (ANTIBIOTIC, BACITRACIN ZINC,) 500 unit/gram ointment Apply 1 application to affected area twice daily. budesonide (PULMICORT) 0.5 mg/2 mL nebulizer solution Use 2 mL via nebulizer once daily. INHALE 2 ML BY NEBULIZER OVER 5-15 MINUTES EVERY 12 HOURS. guaiFENesin-dextromethorphan (ROBITUSSIN DM) 100-10 mg/5 mL syrup Take 5-10 mL by mouth every 6 hours as needed for Cough. hydrOXYzine HCl (ATARAX) 25 mg tablet Take 1 tablet by mouth every 12 hours as needed for Itching/Rash. insulin aspart U-100 (NOVOLOG FLEXPEN U-100 INSULIN) 100 unit/mL inpn Using Sliding Scale: 150-209 1 unit, 210-269 2 units, 270- 329 3 units, 330-389 4 units, 390-449 5 units insulin glargine (LANTUS SOLOSTAR U-100 INSULIN) 100 unit/mL (3 mL) inpn Inject 50 Units subcutaneously every morning. insulin glargine (LANTUS SOLOSTAR U-100 INSULIN) 100 unit/mL (3 mL) inpn Inject 28 Units subcutaneously daily at bedtime. ipratropium-albuterol (DUONEB) 0.5 mg-3 mg(2.5 mg base)/3 mL nebu Inhale 3 mL as instructed every 4 hours while awake. And prn for wheezing/shortness of breath. metoclopramide HCl (REGLAN) 5 mg tablet Take 1 tablet by mouth three times daily. nitroglycerin sublingual (NITROQUICK) 0.4 mg SL tablet Dissolve 1 tablet under the tongue every 5 minutes as needed. nystatin (NYSTOP) powder Apply 1 application to affected area three times daily. ondansetron (ZOFRAN) 4 mg tablet Take 4 mg by mouth every 8 hours as needed. OXYGEN, HOME THERAPY, Inhale 2.5 L/min as instructed continuous. 3 L/min when leaves home. pantoprazole DR (PROTONIX) 40 mg tablet Take 1 tablet by mouth once daily. polyethylene glycol 3350 (MIRALAX) 17 gram/dose powder Use 1-2 times daily as needed for constipation. senna (SENNA) 8.6 mg tab Take 8.6 mg by mouth once daily. silver sulfADIAZINE (SILVADENE,THERMAZENE) 1 % cream Apply 1 application to affected area once daily. simvastatin (ZOCOR) 40 mg tablet Take 1 tablet by mouth every morning. apixaban (ELIQUIS) 5 mg tab(s) Take 1 tablet by mouth twice daily. (Patient not taking: Reported on 09/27/2018 ) isosorbide mononitrate ER (IMDUR) 30 mg 24 hr tablet TAKE THREE TABLETS BY MOUTH ONCE DAILY (Patient not taking: Reported on 09/27/2018) pregabalin (LYRICA) 25 mg capsule Take 1 tablet PO daily with an additional 1 tablet PO after dialysis MWF No current facility-administered medications for this visit. ALLERGIES Allergen Reactions - Aspirin Other: See Comments Patient states that she bled out every orifice, sts not allowed to take it at all. Patient states she was bleeding out of nose and mouth after one dose. - Bactrim [Sulfametho* Other: See Comments My throat swells up. - Latex Rash, Itching Itching and welts. No wheezing or shortness of breath. - Penicillins Rash, Itching Tolerated ceftriaxone during 11/2017 admission and cefepime during 12/2017 admission - Tetracycline Rash, GI Upset Emesis and diarrhea. - Atorvastatin Rash - Codeine Other: See Comments Numbness - Dilaudid [Hydromorp* Mental Status Change - Meperidine - Pentazocine - Pioglitazone Unknown - Propoxyphene PAST SURGICAL HISTORY Procedure Laterality Date - CHOLECYSTECTOMY HX - DIALYSIS ACCESS SYSTEM - HEART SURGERY HX 07/18/2004 Septal myectomy and CABG x2 (DEBORAH-LAD, SVG-PDA). - HYSTERECTOMY HX - IANDD PERIANAL ABSCESS - PACEMAKER with defib - PAST SURGICAL HISTORY OF left breast nodule removed - PAST SURGICAL HISTORY OF skin lesions removed - STENT PLACEMENT coronary Physical Exam: Constitutional: Pt is a well developed 78 year old female who is alert, oriented, cooperative and in no apparent distress. OBJECTIVE: NVSI unchanged from previous visit. Dermatological: B/l hallux toenail is thick and dystrophic causing pain. Webspaces clean and dry 1-4 b/l. Skin appears well hydrated and supple. good color, texture, turgor. No open lesions present. No callosities present. Musculoskeletal/Orthopaedic: Patient has pain to palpation of b/l hallux toenail ASSESSMENT: (L85.3) Xerosis cutis (primary encounter diagnosis) (E11.49) Other diabetic neurological complication associated with type 2 diabetes mellitus (HCC) (B35.1) Onychomycosis PLAN: 1. History and physical examination completed today. 2. Patient wounds to b/l feet remain healed. She does have various eschar/sores treated for legs by Dr. Hogan. Continue with Dr. Hogan for these kimi. 3. Toenails of b/l hallux debrided as courtesy 4. Continue with lotion to feet daily 5. F/u in 2 months Jose C Rodriguez DPM CNOV Observed: 09/27/2018 Status: COMPLETED Source: [place] 12:55 PM [facility] REPOSITORY Office Visit (PODIWS) LUZ BACA ([id number]) 1940 F Date Time Provider Department 09/27/18 12:55 PM JOSE C RODRIGUEZ PODIWS During your visit today, we recorded the following information about you: Katie Gonzalez RN 09/27/2018 1:47 PM Signed AMB ROOMING INTAKE FLOWSHEET DATA Risk Screening Do you have concerns about personal safety or safety in the home?: No Pain Pain Score: 6/10 Pain Location: Other: See Comment (bilateral feet) Description: Throbbing Duration Amount of Time: (several) Duration Units: Years Frequency: Intermittent Intervention: Medication, Relaxation (Lyrica) Patient is here for follow up of L hallux blister. Blister remains healed. She presents to office wearing crocs. She has not yet received her diabetic shoes. She c/o pain that she states is from neuropathy. She also has BLE edema and both legs wrapped for compression. Jose C Rodriguez DPM 09/27/2018 1:47 PM Signed Follow up podiatric office visit for: Chief Complaint: This 78 year old who presents for follow up:blister of left hallux Patient blister remains healed. She has been seen for diabetic shoes but she just has not received them yet. She does complain of pain to b/l lower extremity and feet due to neuropathy. Patient does take lyrica for the neuropathy but that does not help She does have b/l lower extremity edema for which she has developed scattered sores. She is under management from Dr. Hogan and Dr. Kamara. She has no other complaints. PAIN EVALUATION 09/27/2018 Pain Score: 6 Pain Location: Other: See Comment bilateral feet Description: Throbbing Duration Amount of Time: - several Duration Units: Years Frequency: Intermittent Intervention: Medication;Relaxation Lyrica Hemoglobin A1C Date Value Ref Range Status 08/04/2018 6.3 (H) 4.3 - 5.6 % Final PCP: Jameson Kamara MD PAST MEDICAL HISTORY Diagnosis Date - Arthritis - Atrial fibrillation ([facility]) - CAD (coronary artery disease) stents x9, defibrillator, CABG. Seeing Dr. Cardona - Cardiac defibrillator in place - Cardiomegaly - Carotid artery disease ([facility]) left - Chronic hypoxemic respiratory failure ([facility]) 07/01/2018 - COPD (chronic obstructive pulmonary disease) ([facility]) Dr. Cruz - Depression - Diabetes ([facility]) - Diabetic neuropathy ([facility]) - Edema - ESRD (end stage renal disease) on dialysis ([facility]) [facility], Dr. Swartz - GERD (gastroesophageal reflux disease) - Gout with hyperuricemia - HH (hiatus hernia) - HOCM (hypertrophic obstructive cardiomyopathy) ([facility]) S/P Septal Myectomy in 2003. Now with LVEF 50% and mod/severe pulm HTN with tricuspid regurgitation - HTN (hypertension) - Hyperlipidemia - Morbid obesity with BMI of 40.0-44.9, adult ([facility]) - Presence of combination internal cardiac defibrillator (ICD) and pacemaker - Sleep apnea 2011 not on CPAP, unable to tolerate mask 02/2017 - SVT (supraventricular tachycardia) ([facility]) NSVT and questionable VT in 2003 post op Current Outpatient Prescriptions: amiodarone (PACERONE) 200 mg tablet Take 1 tablet by mouth once daily. bacitracin zinc (ANTIBIOTIC, BACITRACIN ZINC,) 500 unit/gram ointment Apply 1 application to affected area twice daily. budesonide (PULMICORT) 0.5 mg/2 mL nebulizer solution Use 2 mL via nebulizer once daily. INHALE 2 ML BY NEBULIZER OVER 5-15 MINUTES EVERY 12 HOURS. guaiFENesin-dextromethorphan (ROBITUSSIN DM) 100-10 mg/5 mL syrup Take 5-10 mL by mouth every 6 hours as needed for Cough. hydrOXYzine HCl (ATARAX) 25 mg tablet Take 1 tablet by mouth every 12 hours as needed for Itching/Rash. insulin aspart U-100 (NOVOLOG FLEXPEN U-100 INSULIN) 100 unit/mL inpn Using Sliding Scale: 150-209 1 unit, 210-269 2 units, 270-329 3 units, 330-389 4 units, 390-449 5 units insulin glargine (LANTUS SOLOSTAR U-100 INSULIN) 100 unit/mL (3 mL) inpn Inject 50 Units subcutaneously every morning. insulin glargine (LANTUS SOLOSTAR U-100 INSULIN) 100 unit/mL (3 mL) inpn Inject 28 Units subcutaneously daily at bedtime. ipratropium-albuterol (DUONEB) 0.5 mg-3 mg(2.5 mg base)/3 mL nebu Inhale 3 mL as instructed every 4 hours while awake. And prn for wheezing/shortness of breath. metoclopramide HCl (REGLAN) 5 mg tablet Take 1 tablet by mouth three times daily. nitroglycerin sublingual (NITROQUICK) 0.4 mg SL tablet Dissolve 1 tablet under the tongue every 5 minutes as needed. nystatin (NYSTOP) powder Apply 1 application to affected area three times daily. ondansetron (ZOFRAN) 4 mg tablet Take 4 mg by mouth every 8 hours as needed. OXYGEN, HOME THERAPY, Inhale 2.5 L/min as instructed continuous. 3 L/min when leaves home. pantoprazole DR (PROTONIX) 40 mg tablet Take 1 tablet by mouth once daily. polyethylene glycol 3350 (MIRALAX) 17 gram/dose powder Use 1-2 times daily as needed for constipation. senna (SENNA) 8.6 mg tab Take 8.6 mg by mouth once daily. silver sulfADIAZINE (SILVADENE,THERMAZENE) 1 % cream Apply 1 application to affected area once daily. simvastatin (ZOCOR) 40 mg tablet Take 1 tablet by mouth every morning. apixaban (ELIQUIS) 5 mg tab(s) Take 1 tablet by mouth twice daily. (Patient not taking: Reported on 09/27/2018 ) isosorbide mononitrate ER (IMDUR) 30 mg 24 hr tablet TAKE THREE TABLETS BY MOUTH ONCE DAILY (Patient not taking: Reported on 09/27/2018) pregabalin (LYRICA) 25 mg capsule Take 1 tablet PO daily with an additional 1 tablet PO after dialysis MWF No current facility-administered medications for this visit. ALLERGIES Allergen Reactions - Aspirin Other: See Comments Patient states that she bled out every orifice, sts not allowed to take it at all. Patient states she was bleeding out of nose and mouth after one dose. - Bactrim [Sulfametho* Other: See Comments My throat swells up. - Latex Rash, Itching Itching and welts. No wheezing or shortness of breath. - Penicillins Rash, Itching Tolerated ceftriaxone during 11/2017 admission and cefepime during 12/2017 admission - Tetracycline Rash, GI Upset Emesis and diarrhea. - Atorvastatin Rash - Codeine Other: See Comments Numbness - Dilaudid [Hydromorp* Mental Status Change - Meperidine - Pentazocine - Pioglitazone Unknown - Propoxyphene PAST SURGICAL HISTORY Procedure Laterality Date - CHOLECYSTECTOMY HX - DIALYSIS ACCESS SYSTEM - HEART SURGERY HX 07/18/2004 Septal myectomy and CABG x2 (DEBORAH-LAD, SVG-PDA). - HYSTERECTOMY HX - IANDD PERIANAL ABSCESS - PACEMAKER with defib - PAST SURGICAL HISTORY OF left breast nodule removed - PAST SURGICAL HISTORY OF skin lesions removed - STENT PLACEMENT coronary Physical Exam: Constitutional: Pt is a well developed 78 year old female who is alert, oriented, cooperative and in no apparent distress. OBJECTIVE: NVSI unchanged from previous visit. Dermatological: B/l hallux toenail is thick and dystrophic causing pain. Webspaces clean and dry 1-4 b/l. Skin appears well hydrated and supple. good color, texture, turgor. No open lesions present. No callosities present. Musculoskeletal/Orthopaedic: Patient has pain to palpation of b/l hallux toenail ASSESSMENT: (L85.3) Xerosis cutis (primary encounter diagnosis) (E11.49) Other diabetic neurological complication associated with type 2 diabetes mellitus (HCC) (B35.1) Onychomycosis PLAN: 1. History and physical examination completed today. 2. Patient wounds to b/l feet remain healed. She does have various eschar/sores treated for legs by Dr. Hogan. Continue with Dr. Hogan for these kimi. 3. Toenails of b/l hallux debrided as courtesy 4. Continue with lotion to feet daily 5. F/u in 2 months Jose C Rodriguez DPM Referring Provider: JOSE C RODRIGUEZ [[id number]] Allergies As of Date: 09/27/2018 Noted Allergy Reaction ASPIRIN 01/20/2018 14 - Other: See Comments Comments: Patient states that she bled out every orifice, sts not allowed to take it at all. Patient states she was bleeding out of nose and mouth after one dose. BACTRIM (SULFAMETHOXAZOLE-TRIMETH*05/17/2017 14 - Other: See Comments Comments: My throat swells up. LATEX 05/17/2017 2 - Rash 9 - Itching Comments: Itching and welts. No wheezing or shortness of breath. PENICILLINS 07/14/2004 2 - Rash 9 - Itching Comments: Tolerated ceftriaxone during 11/2017 admission and cefepime during 12/2017 admission TETRACYCLINE 09/29/2010 2 - Rash 8 - GI Upset Comments: Emesis and diarrhea. ATORVASTATIN 05/17/2017 2 - Rash CODEINE 05/17/2017 14 - Other: See Comments Comments: Numbness DILAUDID (HYDROMORPHONE (BULK)) 05/17/2017 1 - Mental Status Change MEPERIDINE 07/14/2004 PENTAZOCINE 07/14/2004 PIOGLITAZONE 05/17/2017 16 - Unknown PROPOXYPHENE 07/14/2004 Date Reviewed: 09/27/2018 Reviewed by: Katie Gonzalez RN - Fully Assessed Reason for Visit: Follow Up [171] Primary Visit Diagnosis:Xerosis cutis [L85.3] Other Visit Diagnoses:Other diabetic neurological complication associated with type 2 diabetes mellitus (HCC) [E11.49] Onychomycosis [B35.1] Prescriptions as of 09/27/2018 Sig: AMIODARONE 200 MG TABLET Take 1 tablet by mouth once d* BACITRACIN ZINC 500 UNIT/GRAM* Apply 1 application to affect* BUDESONIDE 0.5 MG/2 ML SUSPEN* Use 2 mL via nebulizer once d* DEXTROMETHORPHAN-GUAIFENESIN * Take 5-10 mL by mouth every 6* HYDROXYZINE HCL 25 MG TABLET Take 1 tablet by mouth every * INSULIN ASPART U-100 100 UNI* Using Sliding Scale: 150-209* INSULIN GLARGINE (U-100) 100 * Inject 50 Units subcutaneousl* INSULIN GLARGINE (U-100) 100 * Inject 28 Units subcutaneousl* IPRATROPIUM-ALBUTEROL 0.5 MG-* Inhale 3 mL as instructed leanne* METOCLOPRAMIDE 5 MG TABLET Take 1 tablet by mouth three * NITROGLYCERIN 0.4 MG SUBLINGU* Dissolve 1 tablet under the t* NYSTATIN 100,000 UNIT/GRAM TO* Apply 1 application to affect* ONDANSETRON HCL 4 MG TABLET Take 4 mg by mouth every 8 ho* OXYGEN (HOME THERAPY) Inhale 2.5 L/min as instructe* PANTOPRAZOLE 40 MG TABLET,DEL* Take 1 tablet by mouth once d* POLYETHYLENE GLYCOL 3350 17 G* Use 1-2 times daily as needed* SENNOSIDES 8.6 MG TABLET Take 8.6 mg by mouth once carlos* SILVER SULFADIAZINE 1 % TOPIC* Apply 1 application to affect* SIMVASTATIN 40 MG TABLET Take 1 tablet by mouth every * APIXABAN 5 MG TABLET Take 1 tablet by mouth twice * Patient not taking: Reported on 09/27/2018 ISOSORBIDE MONONITRATE ER 30 * TAKE THREE TABLETS BY MOUTH O* Patient not taking: Reported on 09/27/2018 PREGABALIN 25 MG CAPSULE Take 1 tablet PO daily with a* Problem List As Of Date 09/27/2018 Noted Resolved HOCM (hypertrophic obstructive cardiomyopathy) * 01/23/2018 More... SVT (supraventricular tachycardia) (HCC) [I47.1] 01/21/2018 More... Carotid artery disease (HCC) [I77.9] 01/22/2018 CAD (coronary artery disease) [I25.10] More... Hypertension [I10] More... Hyperlipidemia [E78.5] Pneumonia [J18.9] 10/27/2017 More... COPD (chronic obstructive pulmonary disease) (H* More... Sleep apnea [G47.30] More... HH (hiatus hernia) [K44.9] 01/21/2018 GERD (gastroesophageal reflux disease) [K21.9] More... More... Arthritis [M19.90] Numbness and tingling of right leg [R20.0, R20.* 01/21/2018 Depression [F32.9] Atrial fibrillation (HCC) [I48.91] INVALID FOR* More... Controlled type 2 diabetes mellitus with chroni*INVALID FOR* More... More... More... Heart failure, systolic, acute (HCC) [I50.21] INVALID FOR*01/21/2018 More... Obesity [E66.09] INVALID FOR* More... Gout [M10.9] Pacemaker [Z95.0] More... Chronic combined systolic and diastolic CHF (co*INVALID FOR* More... Elevated troponin [R74.8] INVALID FOR*01/22/2018 More... Pulmonary hypertension (HCC) [I27.20] INVALID FOR* Oral thrush [B37.0] INVALID FOR*01/21/2018 Hyponatremia [E87.1] INVALID FOR* More... Hyperkalemia [E87.5] INVALID FOR*01/22/2018 Chest pain in adult [R07.9] INVALID FOR*02/12/2018 More... Acute renal failure superimposed on stage 3 chr*INVALID FOR* More... Obesity, Class II, BMI 35-39.9 [E66.9] INVALID FOR* ESRD on dialysis (HCC) [N18.6, Z99.2] INVALID FOR* More... Chronic hypoxemic respiratory failure (HCC) [J9*INVALID FOR* Bilateral leg ulcer, limited to breakdown of sk*INVALID FOR* ESRD (end stage renal disease) (HCC) [N18.6] INVALID FOR* More... AV fistula (HCC) [I77.0] INVALID FOR* More... Hypotension [I95.9] INVALID FOR* More... Disposition: Return in about 2 months (around 11/28/2018) for ingrown toenails. Follow-up and Disposition History Recorded Encounter Status:Closed by JOSE C RODRIGUEZ DPM on 09/27/18 PROGRESS Observed: 09/27/2018 Status: COMPLETED Source: [place] 12:51 PM [facility] ID: [id number] Author: Katie Gonzalez RN Service: (none) Author Type: (none) Type: Progress Notes Filed: 09/27/2018 1:47 PM Note Text: AMB ROOMING INTAKE FLOWSHEET DATA Risk Screening Do you have concerns about personal safety or safety in the home?: No Pain Pain Score: 6/10 Pain Location: Other: See Comment (bilateral feet) Description: Throbbing Duration Amount of Time: (several) Duration Units: Years Frequency: Intermittent Intervention: Medication, Relaxation (Lyrica) Patient is here for follow up of L hallux blister. Blister remains healed. She presents to office wearing crocs. She has not yet received her diabetic shoes. She c/o pain that she states is from neuropathy. She also has BLE edema and both legs wrapped for compression. PROGRESS Observed: 09/27/2018 Status: COMPLETED Source: [place] 10:33 AM [facility] REPOSITORY [facility] ID: [id number] Author: Aren Cardona Service: (none) Author Type: Physician Type: Progress Notes Filed: 09/27/2018 6:01 PM Note Text: PERTINENT CARDIAC HISTORY ASHD - CABGx3 2003, PCIx6 RCA 2013, PCIx3 2015 HCM - septal myectomy 2003 HTN DM HL MARLA - unable to tolerate CPAP PAF CRF - on dialysis CHF - systolic, DAMION-I/ARB intolerance (CRF) Cardiomyopathy - ischemic, ICD 2014, revised 11/2016, beta lenny intolerance ADHERENCE TO GUIDELINES DAMION-I or ARB for HF with prior LVEF<40 (NQF 0081) - CRF ASA or Plavix for ASHD (NQF 0067) - restart Beta lenny for ASHD with prior NE or prior LVEF<40 (NQF 0070) - COPD Beta lenny for HF with prior LVEF<40 (NQF 0083) - COPD DAMION-I or ARB for ASHD with DM or prior LVEF<40 (NQF 0066) - CRF Statin therapy for ASHD or FHL or DM - met BMI documented and plan if >25 (NQF 0421) - lifestyle recommendation form Tobacco use screening and referral (NQF 0028) - lifestyle recommendation form Recommendation for whole food, plant based diet - lifestyle recommendation form CLINICAL IMPRESSION/PLAN: Luz Baca is persistently hypotensive, despite discontinuation of her vasoactive medication. She would benefit from reinstitution of at least carvedilol. I have recommended that her volume be liberalized at dialysis. She is probably volume depleted. There is no evidence of overload at this time. Ideally, she should restart anticoagulation as soon as it is safe from the standpoint of her surgical procedures and GI blood loss. I advised her to discuss this further with her archivist and Dr. Kamara. Amiodarone will be continued for the time being. Dr. Hubbard sees her later this month. She's had no recent events on her ICD. As this is just a single ventricular lead, we cannot determine the frequency of atrial fib. I will see her in 4 months or as needed. Written and verbal health teaching given to patient, patient verbalizes understanding and agrees with treatment plan. DIAGNOSIS FOR VISIT: ASHD Hypertension HISTORY OF PRESENT ILLNESS Luz Baca returns for follow-up of multiple cardiac issues, as above. She's had a series of hospitalizations since my last visit. She has had problems with persistent hypotension, and has been taken off carvedilol and isosorbide. She's had minimal chest discomfort. She has required no nitroglycerin. She was given a dialysis fistula, but it closed. She is now being dialyzed through a port. She's had no edema, syncope, TIAs, amaurosis or claudication. She is rarely aware of her heart rhythm. She is currently off anticoagulation, as she was having some GI bleeding and a series of procedures She is still on Pacerone. She has an appointment with EP later this month. ALLERGIES: ALLERGIES Allergen Reactions - Aspirin Other: See Comments Patient states that she bled out every orifice, sts not allowed to take it at all. Patient states she was bleeding out of nose and mouth after one dose. - Bactrim [Sulfametho* Other: See Comments My throat swells up. - Latex Rash, Itching Itching and welts. No wheezing or shortness of breath. - Penicillins Rash, Itching Tolerated ceftriaxone during 11/2017 admission and cefepime during 12/2017 admission - Tetracycline Rash, GI Upset Emesis and diarrhea. - Atorvastatin Rash - Codeine Other: See Comments Numbness - Dilaudid [Hydromorp* Mental Status Change - Meperidine - Pentazocine - Pioglitazone Unknown - Propoxyphene CURRENT OUTPATIENT MEDICATIONS: amiodarone (PACERONE) 200 mg tablet Take 1 tablet by mouth once daily. bacitracin zinc (ANTIBIOTIC, BACITRACIN ZINC,) 500 unit/gram ointment Apply 1 application to affected area twice daily. budesonide (PULMICORT) 0.5 mg/2 mL nebulizer solution Use 2 mL via nebulizer once daily. INHALE 2 ML BY NEBULIZER OVER 5-15 MINUTES EVERY 12 HOURS. guaiFENesin-dextromethorphan (ROBITUSSIN DM) 100-10 mg/5 mL syrup Take 5-10 mL by mouth every 6 hours as needed for Cough. hydrOXYzine HCl (ATARAX) 25 mg tablet Take 1 tablet by mouth every 12 hours as needed for Itching/Rash. insulin aspart U-100 (NOVOLOG FLEXPEN U-100 INSULIN) 100 unit/mL inpn Using Sliding Scale: 150-209 1 unit, 210-269 2 units, 270- 329 3 units, 330-389 4 units, 390-449 5 units insulin glargine (LANTUS SOLOSTAR U-100 INSULIN) 100 unit/mL (3 mL) inpn Inject 50 Units subcutaneously every morning. insulin glargine (LANTUS SOLOSTAR U-100 INSULIN) 100 unit/mL (3 mL) inpn Inject 28 Units subcutaneously daily at bedtime. ipratropium-albuterol (DUONEB) 0.5 mg-3 mg(2.5 mg base)/3 mL nebu Inhale 3 mL as instructed every 4 hours while awake. And prn for wheezing/shortness of breath. metoclopramide HCl (REGLAN) 5 mg tablet Take 1 tablet by mouth three times daily. nitroglycerin sublingual (NITROQUICK) 0.4 mg SL tablet Dissolve 1 tablet under the tongue every 5 minutes as needed. nystatin (NYSTOP) powder Apply 1 application to affected area three times daily. ondansetron (ZOFRAN) 4 mg tablet Take 4 mg by mouth every 8 hours as needed. OXYGEN, HOME THERAPY, Inhale 2.5 L/min as instructed continuous. 3 L/min when leaves home. pantoprazole DR (PROTONIX) 40 mg tablet Take 1 tablet by mouth once daily. polyethylene glycol 3350 (MIRALAX) 17 gram/dose powder Use 1-2 times daily as needed for constipation. senna (SENNA) 8.6 mg tab Take 8.6 mg by mouth once daily. silver sulfADIAZINE (SILVADENE,THERMAZENE) 1 % cream Apply 1 application to affected area once daily. simvastatin (ZOCOR) 40 mg tablet Take 1 tablet by mouth every morning. apixaban (ELIQUIS) 5 mg tab(s) Take 1 tablet by mouth twice daily. isosorbide mononitrate ER (IMDUR) 30 mg 24 hr tablet TAKE THREE TABLETS BY MOUTH ONCE DAILY pregabalin (LYRICA) 25 mg capsule Take 1 tablet PO daily with an additional 1 tablet PO after dialysis MWF PHYSICAL EXAMINATION: VITAL SIGNS: BP 86/47 Pulse 57 Ht 5' 8 (1.73m) Wt 206 lb (93.4kg) BMI 31.33 kg/(m2). She appears chronically ill. Chest: Few scattered rhonchi. There are no rales. Trachea is midline. Air entry is equal. Cardiac: Irregularly irregular rhythm. S1 and S2 are normal. PMI is nondisplaced. There is a soft systolic ejection murmur. Carotids are brisk was soft bilateral bruits. JVP is less than 10 cm. Abdomen: Soft and nontender. There are no pulsatile masses or bruits. No liver enlargement. Bowel sounds are active. Extremities: Trace chronic, brawny edema. Pulses are generally diminished. There is no evidence of ischemia. Recent labs were reviewed. Potassium is normal. Hemoglobin is normal. Electronically Signed: Aren Cardona MD September 27, 2018 10:33 AM CC: Jameson Kamara MD CNOV Observed: 09/27/2018 Status: COMPLETED Source: [place] 10:15 AM [facility] REPOSITORY Office Visit (CAWSTR) LUZ BACA ([id number]) 1940 F Date Time Provider Department 09/27/18 10:15 AM AREN CARDONA CA[facility]STR During your visit today, we recorded the following information about you: Pulse Blood pressure Weight Height 57/minute 86/47 93.4 kg 1.727 m Aren Cardona MD 09/27/2018 6:01 PM Signed PERTINENT CARDIAC HISTORY ASHD - CABGx3 2003, PCIx6 RCA 2013, PCIx3 2014 HCM - septal myectomy 2003 HTN DM HL MARLA - unable to tolerate CPAP PAF CRF - on dialysis CHF - systolic, DAMION-I/ARB intolerance (CRF) Cardiomyopathy - ischemic, ICD 2015, revised 11/2016, beta lenny intolerance ADHERENCE TO GUIDELINES DAMION-I or ARB for HF with prior LVEF<40 (NQF 0081) - CRF ASA or Plavix for ASHD (NQF 0067) - restart Beta lenny for ASHD with prior NE or prior LVEF<40 (NQF 0070) - COPD Beta lenny for HF with prior LVEF<40 (NQF 0083) - COPD DAMION-I or ARB for ASHD with DM or prior LVEF<40 (NQF 0066) - CRF Statin therapy for ASHD or FHL or DM - met BMI documented and plan if >25 (NQF 0421) - lifestyle recommendation form Tobacco use screening and referral (NQF 0028) - lifestyle recommendation form Recommendation for whole food, plant based diet - lifestyle recommendation form CLINICAL IMPRESSION/PLAN: Luz Baca is persistently hypotensive, despite discontinuation of her vasoactive medication. She would benefit from reinstitution of at least carvedilol. I have recommended that her volume be liberalized at dialysis. She is probably volume depleted. There is no evidence of overload at this time. Ideally, she should restart anticoagulation as soon as it is safe from the standpoint of her surgical procedures and GI blood loss. I advised her to discuss this further with her archivist and Dr. Kamara. Amiodarone will be continued for the time being. Dr. Hubbard sees her later this month. She's had no recent events on her ICD. As this is just a single ventricular lead, we cannot determine the frequency of atrial fib. I will see her in 4 months or as needed. Written and verbal health teaching given to patient, patient verbalizes understanding and agrees with treatment plan. DIAGNOSIS FOR VISIT: ASHD Hypertension HISTORY OF PRESENT ILLNESS Luz Baca returns for follow-up of multiple cardiac issues, as above. She's had a series of hospitalizations since my last visit. She has had problems with persistent hypotension, and has been taken off carvedilol and isosorbide. She's had minimal chest discomfort. She has required no nitroglycerin. She was given a dialysis fistula, but it closed. She is now being dialyzed through a port. She's had no edema, syncope, TIAs, amaurosis or claudication. She is rarely aware of her heart rhythm. She is currently off anticoagulation, as she was having some GI bleeding and a series of procedures She is still on Pacerone. She has an appointment with EP later this month. ALLERGIES: ALLERGIES Allergen Reactions - Aspirin Other: See Comments Patient states that she bled out every orifice, sts not allowed to take it at all. Patient states she was bleeding out of nose and mouth after one dose. - Bactrim [Sulfametho* Other: See Comments My throat swells up. - Latex Rash, Itching Itching and welts. No wheezing or shortness of breath. - Penicillins Rash, Itching Tolerated ceftriaxone during 11/2017 admission and cefepime during 12/2017 admission - Tetracycline Rash, GI Upset Emesis and diarrhea. - Atorvastatin Rash - Codeine Other: See Comments Numbness - Dilaudid [Hydromorp* Mental Status Change - Meperidine - Pentazocine - Pioglitazone Unknown - Propoxyphene CURRENT OUTPATIENT MEDICATIONS: amiodarone (PACERONE) 200 mg tablet Take 1 tablet by mouth once daily. bacitracin zinc (ANTIBIOTIC, BACITRACIN ZINC,) 500 unit/gram ointment Apply 1 application to affected area twice daily. budesonide (PULMICORT) 0.5 mg/2 mL nebulizer solution Use 2 mL via nebulizer once daily. INHALE 2 ML BY NEBULIZER OVER 5-15 MINUTES EVERY 12 HOURS. guaiFENesin-dextromethorphan (ROBITUSSIN DM) 100-10 mg/5 mL syrup Take 5-10 mL by mouth every 6 hours as needed for Cough. hydrOXYzine HCl (ATARAX) 25 mg tablet Take 1 tablet by mouth every 12 hours as needed for Itching/Rash. insulin aspart U-100 (NOVOLOG FLEXPEN U-100 INSULIN) 100 unit/mL inpn Using Sliding Scale: 150-209 1 unit, 210-269 2 units, 270-329 3 units, 330-389 4 units, 390-449 5 units insulin glargine (LANTUS SOLOSTAR U-100 INSULIN) 100 unit/mL (3 mL) inpn Inject 50 Units subcutaneously every morning. insulin glargine (LANTUS SOLOSTAR U-100 INSULIN) 100 unit/mL (3 mL) inpn Inject 28 Units subcutaneously daily at bedtime. ipratropium-albuterol (DUONEB) 0.5 mg-3 mg(2.5 mg base)/3 mL nebu Inhale 3 mL as instructed every 4 hours while awake. And prn for wheezing/shortness of breath. metoclopramide HCl (REGLAN) 5 mg tablet Take 1 tablet by mouth three times daily. nitroglycerin sublingual (NITROQUICK) 0.4 mg SL tablet Dissolve 1 tablet under the tongue every 5 minutes as needed. nystatin (NYSTOP) powder Apply 1 application to affected area three times daily. ondansetron (ZOFRAN) 4 mg tablet Take 4 mg by mouth every 8 hours as needed. OXYGEN, HOME THERAPY, Inhale 2.5 L/min as instructed continuous. 3 L/min when leaves home. pantoprazole DR (PROTONIX) 40 mg tablet Take 1 tablet by mouth once daily. polyethylene glycol 3350 (MIRALAX) 17 gram/dose powder Use 1-2 times daily as needed for constipation. senna (SENNA) 8.6 mg tab Take 8.6 mg by mouth once daily. silver sulfADIAZINE (SILVADENE,THERMAZENE) 1 % cream Apply 1 application to affected area once daily. simvastatin (ZOCOR) 40 mg tablet Take 1 tablet by mouth every morning. apixaban (ELIQUIS) 5 mg tab(s) Take 1 tablet by mouth twice daily. isosorbide mononitrate ER (IMDUR) 30 mg 24 hr tablet TAKE THREE TABLETS BY MOUTH ONCE DAILY pregabalin (LYRICA) 25 mg capsule Take 1 tablet PO daily with an additional 1 tablet PO after dialysis MWF PHYSICAL EXAMINATION: VITAL SIGNS: BP 86/47 Pulse 57 Ht 5' 8 (1.73m) Wt 206 lb (93.4kg) BMI 31.33 kg/(m2). She appears chronically ill. Chest: Few scattered rhonchi. There are no rales. Trachea is midline. Air entry is equal. Cardiac: Irregularly irregular rhythm. S1 and S2 are normal. PMI is nondisplaced. There is a soft systolic ejection murmur. Carotids are brisk was soft bilateral bruits. JVP is less than 10 cm. Abdomen: Soft and nontender. There are no pulsatile masses or bruits. No liver enlargement. Bowel sounds are active. Extremities: Trace chronic, brawny edema. Pulses are generally diminished. There is no evidence of ischemia. Recent labs were reviewed. Potassium is normal. Hemoglobin is normal. Electronically Signed: Aren Cardona MD September 27, 2018 10:33 AM CC: MD Aren Samuels MD 09/27/2018 10:33 AM Signed LIFESTYLE CHANGE A healthy lifestyle is the most important component of your overall treatment plan. Please give serious thought to the following areas and commit to making medical terminologist changes. EAT A WHOLE FOOD, PLANT BASED DIET The nutrition your body gets is more important than the medicine you take. What matters most is the overall way you eat. We encourage you to minimize the use of animal products (which include dairy and all meats except fatty fish) and use whole, unprocessed plant foods to provide your protein, vitamins and other nutrients. We have a lot of information to share with you on this topic. This is not a diet. It is a way of life that you will keep with you. EXERCISE REGULARLY It is not important to spend hours in the gym, lifting weights and perspiring heavily. A total of 2-3 hours per week of aerobic (causing you to be moderately short of breath) exercise is sufficient to improve your health. Talk to us before you begin a new exercise program, if you have heart disease or experience shortness of breath or chest pain. REDUCE STRESS Chronic emotional and physical stress leads to disease. Ways of reducing stress include meditation, visualization, prayer, yoga and other forms of relaxation therapy. Consistency is the aguilera. Find a technique that works for you and do it every day. CULTIVATE RELATIONSHIPS Loneliness and isolation have a major negative impact on health. Seek out others who can love, care for and nurture you. Avoid hurtful relationships. MAINTAIN IDEAL BODY WEIGHT The best way to do this is to do all the things above. Our bodies naturally find the right weight if we keep moving and feed ourselves the right food. If your BMI is greater than 25, we strongly recommend a referral to a weight management program. Please speak to us or your family physician about available programs. AVOID NICOTINE IN ALL FORMS This includes all tobacco products, whether chewed, smoked, vaped, or rubbed on the skin. Smoking cessation programs, which can make use of tobacco substitutes, medications to suppress cravings and behavior management, are available. Please contact your family physician about programs in your area. Referring Provider: AREN CARDONA [[id number]] Allergies As of Date: 09/27/2018 Noted Allergy Reaction ASPIRIN 01/20/2018 14 - Other: See Comments Comments: Patient states that she bled out every orifice, sts not allowed to take it at all. Patient states she was bleeding out of nose and mouth after one dose. BACTRIM (SULFAMETHOXAZOLE-TRIMETH*05/17/2017 14 - Other: See Comments Comments: My throat swells up. LATEX 05/17/2017 2 - Rash 9 - Itching Comments: Itching and welts. No wheezing or shortness of breath. PENICILLINS 07/14/2004 2 - Rash 9 - Itching Comments: Tolerated ceftriaxone during 11/2017 admission and cefepime during 12/2017 admission TETRACYCLINE 09/29/2010 2 - Rash 8 - GI Upset Comments: Emesis and diarrhea. ATORVASTATIN 05/17/2017 2 - Rash CODEINE 05/17/2017 14 - Other: See Comments Comments: Numbness DILAUDID (HYDROMORPHONE (BULK)) 05/17/2017 1 - Mental Status Change MEPERIDINE 07/14/2004 PENTAZOCINE 07/14/2004 PIOGLITAZONE 05/17/2017 16 - Unknown PROPOXYPHENE 07/14/2004 Date Reviewed: 09/27/2018 Reviewed by: Katie Gonzalez RN - Fully Assessed Reason for Visit: Established Patient [175] Primary Visit Diagnosis:ASHD (arteriosclerotic heart disease) [I25.10] Other Visit Diagnosis:Hypertension, essential [I10] Prescriptions as of 09/27/2018 Sig: AMIODARONE 200 MG TABLET Take 1 tablet by mouth once d* BACITRACIN ZINC 500 UNIT/GRAM* Apply 1 application to affect* BUDESONIDE 0.5 MG/2 ML SUSPEN* Use 2 mL via nebulizer once d* DEXTROMETHORPHAN-GUAIFENESIN * Take 5-10 mL by mouth every 6* HYDROXYZINE HCL 25 MG TABLET Take 1 tablet by mouth every * INSULIN ASPART U-100 100 UNI* Using Sliding Scale: 150-209* INSULIN GLARGINE (U-100) 100 * Inject 50 Units subcutaneousl* INSULIN GLARGINE (U-100) 100 * Inject 28 Units subcutaneousl* IPRATROPIUM-ALBUTEROL 0.5 MG-* Inhale 3 mL as instructed leanne* METOCLOPRAMIDE 5 MG TABLET Take 1 tablet by mouth three * NITROGLYCERIN 0.4 MG SUBLINGU* Dissolve 1 tablet under the t* NYSTATIN 100,000 UNIT/GRAM TO* Apply 1 application to affect* ONDANSETRON HCL 4 MG TABLET Take 4 mg by mouth every 8 ho* OXYGEN (HOME THERAPY) Inhale 2.5 L/min as instructe* PANTOPRAZOLE 40 MG TABLET,DEL* Take 1 tablet by mouth once d* POLYETHYLENE GLYCOL 3350 17 G* Use 1-2 times daily as needed* SENNOSIDES 8.6 MG TABLET Take 8.6 mg by mouth once carlos* SILVER SULFADIAZINE 1 % TOPIC* Apply 1 application to affect* SIMVASTATIN 40 MG TABLET Take 1 tablet by mouth every * APIXABAN 5 MG TABLET Take 1 tablet by mouth twice * Patient not taking: Reported on 09/27/2018 ISOSORBIDE MONONITRATE ER 30 * TAKE THREE TABLETS BY MOUTH O* Patient not taking: Reported on 09/27/2018 PREGABALIN 25 MG CAPSULE Take 1 tablet PO daily with a* Problem List As Of Date 09/27/2018 Noted Resolved HOCM (hypertrophic obstructive cardiomyopathy) * 01/23/2018 More... SVT (supraventricular tachycardia) (HCC) [I47.1] 01/21/2018 More... Carotid artery disease (HCC) [I77.9] 01/22/2018 CAD (coronary artery disease) [I25.10] More... Hypertension [I10] More... Hyperlipidemia [E78.5] Pneumonia [J18.9] 10/27/2017 More... COPD (chronic obstructive pulmonary disease) (H* More... Sleep apnea [G47.30] More... HH (hiatus hernia) [K44.9] 01/21/2018 GERD (gastroesophageal reflux disease) [K21.9] More... More... Arthritis [M19.90] Numbness and tingling of right leg [R20.0, R20.* 01/21/2018 Depression [F32.9] Atrial fibrillation (HCC) [I48.91] INVALID FOR* More... Controlled type 2 diabetes mellitus with chroni*INVALID FOR* More... More... More... Heart failure, systolic, acute (HCC) [I50.21] INVALID FOR*01/21/2018 More... Obesity [E66.09] INVALID FOR* More... Gout [M10.9] Pacemaker [Z95.0] More... Chronic combined systolic and diastolic CHF (co*INVALID FOR* More... Elevated troponin [R74.8] INVALID FOR*01/22/2018 More... Pulmonary hypertension (HCC) [I27.20] INVALID FOR* Oral thrush [B37.0] INVALID FOR*01/21/2018 Hyponatremia [E87.1] INVALID FOR* More... Hyperkalemia [E87.5] INVALID FOR*01/22/2018 Chest pain in adult [R07.9] INVALID FOR*02/12/2018 More... Acute renal failure superimposed on stage 3 chr*INVALID FOR* More... Obesity, Class II, BMI 35-39.9 [E66.9] INVALID FOR* ESRD on dialysis (HCC) [N18.6, Z99.2] INVALID FOR* More... Chronic hypoxemic respiratory failure (HCC) [J9*INVALID FOR* Bilateral leg ulcer, limited to breakdown of sk*INVALID FOR* ESRD (end stage renal disease) (HCC) [N18.6] INVALID FOR* More... AV fistula (HCC) [I77.0] INVALID FOR* More... Hypotension [I95.9] INVALID FOR* More... Other instructions from your clinician: LIFESTYLE CHANGE A healthy lifestyle is the most important component of your overall treatment plan. Please give serious thought to the following areas and commit to making medical terminologist changes. EAT A WHOLE FOOD, PLANT BASED DIET The nutrition your body gets is more important than the medicine you take. What matters most is the overall way you eat. We encourage you to minimize the use of animal products (which include dairy and all meats except fatty fish) and use whole, unprocessed plant foods to provide your protein, vitamins and other nutrients. We have a lot of information to share with you on this topic. This is not a diet. It is a way of life that you will keep with you. EXERCISE REGULARLY It is not important to spend hours in the gym, lifting weights and perspiring heavily. A total of 2-3 hours per week of aerobic (causing you to be moderately short of breath) exercise is sufficient to improve your health. Talk to us before you begin a new exercise program, if you have heart disease or experience shortness of breath or chest pain. REDUCE STRESS Chronic emotional and physical stress leads to disease. Ways of reducing stress include meditation, visualization, prayer, yoga and other forms of relaxation therapy. Consistency is the aguilera. Find a technique that works for you and do it every day. CULTIVATE RELATIONSHIPS Loneliness and isolation have a major negative impact on health. Seek out others who can love, care for and nurture you. Avoid hurtful relationships. MAINTAIN IDEAL BODY WEIGHT The best way to do this is to do all the things above. Our bodies naturally find the right weight if we keep moving and feed ourselves the right food. If your BMI is greater than 25, we strongly recommend a referral to a weight management program. Please speak to us or your family physician about available programs. AVOID NICOTINE IN ALL FORMS This includes all tobacco products, whether chewed, smoked, vaped, or rubbed on the skin. Smoking cessation programs, which can make use of tobacco substitutes, medications to suppress cravings and behavior management, are available. Please contact your family physician about programs in your area. Encounter Status:Closed by AREN CARDONA MD on 09/27/18 PROGRESS Observed: 09/26/2018 Status: COMPLETED Source: [place] 4:26 PM [facility] [place] REPOSITORY O ID: [id number] Author: Remi (Rn) Brent Service: (none) Author Type: Registered Nurse Type: Progress Notes Filed: 09/26/2018 4:46 PM Note Text: TRANSITION CARE MANAGEMENT (TCM) INITIAL CONTACT Provider Action/FYI: Holding Imdur, Eliquis and Coreg F/U appt with Dr. Cardona tomorrow Initial contact with patient post discharge, spoke to Octavia mesa. Patient identified by name and . TRANSITION CARE MANAGEMENT: Date of Outreach: 09/26/2018 Outreach Attempt 1: Contact Made Date of Discharge 09/23/2018 Some recent data might be hidden SUMMARY: -Pt discharged from [facility] on 09/23. -Follow up appointment on 10/06 with PCP. -Medication review done with dgt. -Admitted for: ESRD HYPOTENSION DM w/ CKD CONCERNS: Pt was at dialysis all day. Informed hematoma on arm will get bigger before it begins to heal Pt had a cloudy bubble behind her eye implant, she had a procedure last week and we went back today for check. It didn't work like Dr. Sandoval expected so they are going to try eye drops and recheck in 1 month. Patient is holding Imdur, appt with Dr. Cardona tomorrow NEW MEDICATIONS: traMADol (ULTRAM) 25 mg Take 25 mg by mouth every 6 hours as needed. MEDS HELD/DISCONTINUED: isosorbide mononitrate ER (IMDUR) 30 mg 24 hr TAKE THREE TABLETS ONCE DAILY carvedilol (COREG) 3.125 mg TAKE ONE TABLET TWICE DAILY apixaban (ELIQUIS) 5 mg TAKE ONE TABLET TWICE DAILY BRIEF HOSPITAL COURSE: Admitted for observation s/p fistulogram with Dr. Hogan due to hypotension at 85/58. This has been an ongoing problem recently with episodes of hypotension at dialysis. Her BP came up to 111/48 upon arrival to the floor. Imdur and Coreg was held overnight. She went for dialysis today and BP stayed stable, dropped to 88/56 at the lowest and otherwise remained SBP 100s. She is not feeling lightheaded and denies any significant right arm pain. Hematoma has spread 1in past previously drawn border, discussed with vascular surgery who said she is ok for discharge. Will plan to continue imdur on discharge but discontinue coreg. Remi Kennedy RN September 26, 2018 4:32 PM LUDA Observed: 09/26/2018 Status: COMPLETED Source: [place] 12:00 AM [facility] REPOSITORY Patient Outreach (FAMPWS) LUZ BACA ([id number]) 1940 F Date Time Provider Department 09/26/18 REMI KENNEDY (ALLYSON) NAVINPWS During your visit today, we recorded the following information about you: Remi Kennedy RN 09/26/2018 4:46 PM Signed TRANSITION CARE MANAGEMENT (TCM) INITIAL CONTACT Provider Action/FYI: Holding Imdur, Eliquis and Coreg F/U appt with Dr. Cardona tomorrow Initial contact with patient post discharge, spoke to Octavia mesa. Patient identified by name and . TRANSITION CARE MANAGEMENT: Date of Outreach: 09/26/2018 Outreach Attempt 1: Contact Made Date of Discharge 09/23/2018 Some recent data might be hidden SUMMARY: -Pt discharged from [facility] on 09/23. -Follow up appointment on 10/06 with PCP. -Medication review done with dgt. -Admitted for: ESRD HYPOTENSION DM w/ CKD CONCERNS: Pt was at dialysis all day. Informed hematoma on arm will get bigger before it begins to heal Pt had a cloudy bubble behind her eye implant, she had a procedure last week and we went back today for check. It didn't work like Dr. Sandoval expected so they are going to try eye drops and recheck in 1 month. Patient is holding Imdur, appt with Dr. Cadrona tomorrow NEW MEDICATIONS: traMADol (ULTRAM) 25 mg Take 25 mg by mouth every 6 hours as needed. MEDS HELD/DISCONTINUED: isosorbide mononitrate ER (IMDUR) 30 mg 24 hr TAKE THREE TABLETS ONCE DAILY carvedilol (COREG) 3.125 mg TAKE ONE TABLET TWICE DAILY apixaban (ELIQUIS) 5 mg TAKE ONE TABLET TWICE DAILY BRIEF HOSPITAL COURSE: Admitted for observation s/p fistulogram with Dr. Hogan due to hypotension at 85/58. This has been an ongoing problem recently with episodes of hypotension at dialysis. Her BP came up to 111/48 upon arrival to the floor. Imdur and Coreg was held overnight. She went for dialysis today and BP stayed stable, dropped to 88/56 at the lowest and otherwise remained SBP 100s. She is not feeling lightheaded and denies any significant right arm pain. Hematoma has spread 1in past previously drawn border, discussed with vascular surgery who said she is ok for discharge. Will plan to continue imdur on discharge but discontinue coreg. Remi Kennedy RN September 26, 2018 4:32 PM Allergies As of Date: 09/26/2018 Noted Allergy Reaction ASPIRIN 01/20/2018 14 - Other: See Comments Comments: Patient states that she bled out every orifice, sts not allowed to take it at all. Patient states she was bleeding out of nose and mouth after one dose. BACTRIM (SULFAMETHOXAZOLE-TRIMETH*05/17/2017 14 - Other: See Comments Comments: My throat swells up. LATEX 05/17/2017 2 - Rash 9 - Itching Comments: Itching and welts. No wheezing or shortness of breath. PENICILLINS 07/14/2004 2 - Rash 9 - Itching Comments: Tolerated ceftriaxone during 11/2017 admission and cefepime during 12/2017 admission TETRACYCLINE 09/29/2010 2 - Rash 8 - GI Upset Comments: Emesis and diarrhea. ATORVASTATIN 05/17/2017 2 - Rash CODEINE 05/17/2017 14 - Other: See Comments Comments: Numbness DILAUDID (HYDROMORPHONE (BULK)) 05/17/2017 1 - Mental Status Change MEPERIDINE 07/14/2004 PENTAZOCINE 07/14/2004 PIOGLITAZONE 05/17/2017 16 - Unknown PROPOXYPHENE 07/14/2004 Date Reviewed: 09/22/2018 Reviewed by: Catarina OsheaRn) ALLYSON Rodriguez - Fully Assessed Reason for Visit: Transition Of Care [4074] Prescriptions as of 09/26/2018 Sig: TRAMADOL 50 MG TABLET Take 0.5 tablets by mouth leanne* APIXABAN 5 MG TABLET Take 1 tablet by mouth twice * SILVER SULFADIAZINE 1 % TOPIC* Apply 1 application to affect* HYDROXYZINE HCL 25 MG TABLET Take 1 tablet by mouth every * AMIODARONE 200 MG TABLET Take 1 tablet by mouth once d* SIMVASTATIN 40 MG TABLET Take 1 tablet by mouth every * ISOSORBIDE MONONITRATE ER 30 * TAKE THREE TABLETS BY MOUTH O* INSULIN GLARGINE (U-100) 100 * Inject 28 Units subcutaneousl* INSULIN ASPART U-100 100 UNI* Using Sliding Scale: 150-209* INSULIN GLARGINE (U-100) 100 * Inject 50 Units subcutaneousl* BACITRACIN ZINC 500 UNIT/GRAM* Apply 1 application to affect* POLYETHYLENE GLYCOL 3350 17 G* Use 1-2 times daily as needed* PREGABALIN 25 MG CAPSULE Take 1 tablet PO daily with a* METOCLOPRAMIDE 5 MG TABLET Take 1 tablet by mouth three * PANTOPRAZOLE 40 MG TABLET,DEL* Take 1 tablet by mouth once d* SENNOSIDES 8.6 MG TABLET Take 8.6 mg by mouth once carlos* ONDANSETRON HCL 4 MG TABLET Take 4 mg by mouth every 8 ho* IPRATROPIUM-ALBUTEROL 0.5 MG-* Inhale 3 mL as instructed leanne* BUDESONIDE 0.5 MG/2 ML SUSPEN* Use 2 mL via nebulizer once d* NYSTATIN 100,000 UNIT/GRAM TO* Apply 1 application to affect* DEXTROMETHORPHAN-GUAIFENESIN * Take 5-10 mL by mouth every 6* NITROGLYCERIN 0.4 MG SUBLINGU* Dissolve 1 tablet under the t* OXYGEN (HOME THERAPY) Inhale 2.5 L/min as instructe* Problem List As Of Date 09/26/2018 Noted Resolved HOCM (hypertrophic obstructive cardiomyopathy) * 01/23/2018 More... SVT (supraventricular tachycardia) (HCC) [I47.1] 01/21/2018 More... Carotid artery disease (HCC) [I77.9] 01/22/2018 CAD (coronary artery disease) [I25.10] More... Hypertension [I10] More... Hyperlipidemia [E78.5] Pneumonia [J18.9] 10/27/2017 More... COPD (chronic obstructive pulmonary disease) (H* More... Sleep apnea [G47.30] More... HH (hiatus hernia) [K44.9] 01/21/2018 GERD (gastroesophageal reflux disease) [K21.9] More... More... Arthritis [M19.90] Numbness and tingling of right leg [R20.0, R20.* 01/21/2018 Depression [F32.9] Atrial fibrillation (HCC) [I48.91] INVALID FOR* More... Controlled type 2 diabetes mellitus with chroni*INVALID FOR* More... More... More... Heart failure, systolic, acute (HCC) [I50.21] INVALID FOR*01/21/2018 More... Obesity [E66.09] INVALID FOR* More... Gout [M10.9] Pacemaker [Z95.0] More... Chronic combined systolic and diastolic CHF (co*INVALID FOR* More... Elevated troponin [R74.8] INVALID FOR*01/22/2018 More... Pulmonary hypertension (HCC) [I27.20] INVALID FOR* Oral thrush [B37.0] INVALID FOR*01/21/2018 Hyponatremia [E87.1] INVALID FOR* More... Hyperkalemia [E87.5] INVALID FOR*01/22/2018 Chest pain in adult [R07.9] INVALID FOR*02/12/2018 More... Acute renal failure superimposed on stage 3 chr*INVALID FOR* More... Obesity, Class II, BMI 35-39.9 [E66.9] INVALID FOR* ESRD on dialysis (HCC) [N18.6, Z99.2] INVALID FOR* More... Chronic hypoxemic respiratory failure (HCC) [J9*INVALID FOR* Bilateral leg ulcer, limited to breakdown of sk*INVALID FOR* ESRD (end stage renal disease) (HCC) [N18.6] INVALID FOR* More... AV fistula (HCC) [I77.0] INVALID FOR* More... Hypotension [I95.9] INVALID FOR* More... Encounter Status:Closed by REMI KENNEDY on 09/26/18 CONSULT PROG Observed: 09/23/2018 Status: COMPLETED Source: [place] 5:30 PM CLINIC OTHER CAMPUS REPOSITORY HNO ID: [id number] Author: Michael Hogan Service: Vascular Surgery Author Type: Physician Type: Consult Progress Note Filed: 09/23/2018 5:34 PM Note Text: CONSULT PROGRESS NOTES PATIENT NAME: Luz Baca SERVICE DATE: 09/23/2018 SERVICE TIME: 5:30 PM CONSULTING SERVICE: Vascular Surgery ASSESSMENT AND PLAN Principal Problem: ESRD (end stage renal disease) (HCC) POA: Unknown Assessment AND Plan: Thrombosed AV fistula. Discussed with nephrology will continue to use catheter as she may not be able to maintain flow secondary to hypotension. 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 SUBJECTIVE INTERVAL HPI: Denies any complaints. Some soreness MEDICATIONS: Current hospital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 CABG. Seeing Dr. Cardona - Cardiac defibrillator in place - Cardiomegaly - Carotid artery disease (HCC) left - Chronic hypoxemic respiratory failure ([facility]) 07/01/2018 - COPD (chronic obstructive pulmonary disease) ([facility]) Dr. Cruz - Depression - Diabetes ([facility]) - Diabetic neuropathy ([facility]) - Edema - ESRD (end stage renal disease) on dialysis ([facility]) [facility], Dr. Swartz - GERD (gastroesophageal reflux disease) - Gout with hyperuricemia - HH (hiatus hernia) - HOCM (hypertrophic obstructive cardiomyopathy) ([facility]) S/P Septal Myectomy in 2003. Now with LVEF 50% and mod/severe pulm HTN with tricuspid regurgitation - HTN (hypertension) - Hyperlipidemia - Morbid obesity with BMI of 40.0-44.9, adult ([facility]) - Presence of combination internal cardiac defibrillator (ICD) and pacemaker - Sleep apnea 2011 not on CPAP, unable to tolerate mask 02/2017 - SVT (supraventricular tachycardia) ([facility]) NSVT and questionable VT in 2003 post op PAST SURGICAL HISTORY: PAST SURGICAL HISTORY Procedure Laterality Date - CHOLECYSTECTOMY HX - DIALYSIS ACCESS SYSTEM - HEART SURGERY HX 07/18/2004 Septal myectomy and CABG x2 (DEBORAH-LAD, SVG-PDA). - HYSTERECTOMY HX - IANDD PERIANAL ABSCESS - PACEMAKER with defib - PAST SURGICAL HISTORY OF left breast nodule removed - PAST SURGICAL HISTORY OF skin lesions removed - STENT PLACEMENT coronary FAMILY HISTORY: FAMILY HISTORY Problem Relation Age of Onset - Hypertension Mother living at age 93, HTN - Heart Failure Mother NE - Cancer Father age 71, lung cancer - Heart Attack Sister - COPD Brother - Heart Paternal Grandmother - Heart Paternal Grandfather - Heart Sister - Diabetes Sister - Heart Sister - Breast Cancer Sister - Diabetes Sister - Hypertension Brother - Diabetes Brother SOCIAL HISTORY: Social History Substance Use Topics - Smoking status: Former Smoker Packs/day: 2.50 Years: 43.00 Types: Cigarettes Start date: 1961 Quit date: 07/07/2004 - Smokeless tobacco: Never Used - Alcohol use No MEDICATIONS: Prior to Admission Medications: Prescriptions Prior to Admission: carvedilol (COREG) 3.125 mg tablet Take 1 tablet by mouth twice daily with meals. Disp: 60 tablet Rfl: 09/21/2018 at 1730 amiodarone (PACERONE) 200 mg tablet Take 1 tablet by mouth once daily. Disp: 30 tablet Rfl: 09/21/2018 at 0800 simvastatin (ZOCOR) 40 mg tablet Take 1 tablet by mouth every morning. Disp: 90 tablet Rfl: 09/21/2018 at 0800 isosorbide mononitrate ER (IMDUR) 30 mg 24 hr tablet TAKE THREE TABLETS BY MOUTH ONCE DAILY Disp: 270 tablet Rfl: 09/21/2018 at 1730 insulin glargine (LANTUS SOLOSTAR U-100 INSULIN) 100 unit/mL (3 mL) inpn Inject 28 Units subcutaneously daily at bedtime. Disp: Rfl: 09/21/2018 at 2100 insulin glargine (LANTUS SOLOSTAR U-100 INSULIN) 100 unit/mL (3 mL) inpn Inject 50 Units subcutaneously every morning. Disp: 10 Pen Rfl: 1 09/21/2018 at 0800 bacitracin zinc (ANTIBIOTIC, BACITRACIN ZINC,) 500 unit/gram ointment Apply 1 application to affected area twice daily. Disp: 1 Tube Rfl: 1 09/21/2018 at Unknown time pregabalin (LYRICA) 25 mg capsule Take 1 tablet PO daily with an additional 1 tablet PO after dialysis MWF Disp: 45 capsule Rfl: 2 09/21/2018 at 1730 metoclopramide HCl (REGLAN) 5 mg tablet Take 1 tablet by mouth three times daily. Disp: 90 tablet Rfl: 2 09/21/[address] (PROTONIX) 40 mg tablet Take 1 tablet by mouth once daily. Disp: Rfl: 09/21/2018 at 0800 OXYGEN, HOME THERAPY, Inhale 2.5 L/min as instructed continuous. 3 L/min when leaves home. Disp: Rfl: 09/22/2018 at Unknown time silver sulfADIAZINE (SILVADENE,THERMAZENE) 1 % cream Apply 1 application to affected area once daily. Disp: 25 g Rfl: 1 Unknown at Unknown time hydrOXYzine HCl (ATARAX) 25 mg tablet Take 1 tablet by mouth every 12 hours as needed for Itching/Rash. Disp: 30 tablet Rfl: 0 09/20/2018 apixaban (ELIQUIS) 5 mg tab(s) Take 1 tablet by mouth twice daily. Disp: 60 tablet Rfl: 5 09/17/2018 insulin aspart U-100 (NOVOLOG FLEXPEN U-100 INSULIN) 100 unit/mL inpn Using Sliding Scale: 150-209 1 unit, 210-269 2 units, 270- 329 3 units, 330-389 4 units, 390-449 5 units Disp: 5 Pen Rfl: 1 Unknown at Unknown time polyethylene glycol 3350 (MIRALAX) 17 gram/dose powder Use 1-2 times daily as needed for constipation. Disp: 1 Bottle Rfl: Unknown at Unknown time senna (SENNA) 8.6 mg tab Take 8.6 mg by mouth once daily. Disp: Rfl: Unknown at Unknown time ondansetron (ZOFRAN) 4 mg tablet Take 4 mg by mouth every 8 hours as needed. Disp: Rfl: Unknown at Unknown time ipratropium-albuterol (DUONEB) 0.5 mg-3 mg(2.5 mg base)/3 mL nebu Inhale 3 mL as instructed every 4 hours while awake. And prn for wheezing/shortness of breath. Disp: 180 Vial Rfl: 5 Unknown at Unknown time budesonide (PULMICORT) 0.5 mg/2 mL nebulizer solution Use 2 mL via nebulizer once daily. INHALE 2 ML BY NEBULIZER OVER 5-15 MINUTES EVERY 12 HOURS. Disp: 60 Vial Rfl: 5 Unknown at Unknown time nystatin (NYSTOP) powder Apply 1 application to affected area three times daily. Disp: 60 g Rfl: 2 Unknown at Unknown time guaiFENesin-dextromethorphan (ROBITUSSIN DM) 100-10 mg/5 mL syrup Take 5-10 mL by mouth every 6 hours as needed for Cough. Disp: 118 mL Rfl: 0 Unknown at Unknown time nitroglycerin sublingual (NITROQUICK) 0.4 mg SL tablet Dissolve 1 tablet under the tongue every 5 minutes as needed. Disp: 1 Bottle of 25 Rfl: 0 Unknown at Unknown time Current hospital medications: NaCl 0.9% 2-10 mL 2-10 mL INTRAVENOUS q 12 H ondansetron orally disintegrating 4 mg tab(s) (ZOFRAN ODT) 4 mg ORAL q 6 H PRN ondansetron (PF) 4 mg injection (ZOFRAN) 4 mg INTRAVENOUS q 6 H PRN dextrose 40 % 15 g 15 g ORAL PRN glucagon 1 mg injection (GLUCAGEN) 1 mg INTRAMUSCULAR PRN dextrose 50% in water 25 mL syringe 12.5 g INTRAVENOUS PRN amiodarone 200 mg tab(s) (PACERONE) 200 mg ORAL DAILY pregabalin 25 mg cap(s) (LYRICA) 25 mg ORAL DAILY simvastatin 40 mg tab(s) (ZOCOR) 40 mg ORAL DAILY ipratropium-albuterol 3 mL nebulizer solution (DUONEB) 3 mL INHALATION q 4 H PRN insulin glargine 50 Units injection (long acting) (LANTUS) 50 Units SUBCUTANEOUS DAILY (8 AM) insulin glargine 28 Units injection (long acting) (LANTUS) 28 Units SUBCUTANEOUS AT BEDTIME metoclopramide HCl 5 mg tab(s) (REGLAN) 5 mg ORAL TID pantoprazole DR 40 mg tab(s) (PROTONIX) 40 mg ORAL DAILY bacitracin zinc 500 unit/gram 1 application topical ointment 1 application TOPICAL BID silver sulfADIAZINE 1 % 1 application (SILVADENE,THERMAZENE) 1 application TOPICAL DAILY NaCl 0.9% 3-5 mL 3-5 mL INTRAVENOUS q 12 H docusate sodium 100 mg cap(s) (COLACE) 100 mg ORAL BID PRN insulin lispro injection (rapid acting) (HumaLOG) SUBCUTANEOUS w MEALS acetaminophen 325-650 mg tab(s) (TYLENOL) 325-650 mg ORAL q 6 H PRN traMADol 25 mg tab(s) (ULTRAM) 25 mg ORAL q 12 H PRN ALLERGIES: ALLERGIES Allergen Reactions - Aspirin Other: See Comments Patient states that she bled out every orifice, sts not allowed to take it at all. Patient states she was bleeding out of nose and mouth after one dose. - Bactrim [Sulfametho* Other: See Comments My throat swells up. - Latex Rash, Itching Itching and welts. No wheezing or shortness of breath. - Penicillins Rash, Itching Tolerated ceftriaxone during 11/2017 admission and cefepime during 12/2017 admission - Tetracycline Rash, GI Upset Emesis and diarrhea. - Atorvastatin Rash - Codeine Other: See Comments Numbness - Dilaudid [Hydromorp* Mental Status Change - Meperidine - Pentazocine - Pioglitazone Unknown - Propoxyphene COMPLETE REVIEW OF SYSTEMS: PAIN ASSESSMENT: Negative for pain, history of chronic pain, or current treatment for a chronic pain condition. GENERAL: Fatigue HEENT: Negative for frequent or significant headaches NECK: Negative for lumps, goiter, pain and significant neck swelling RESPIRATORY: Shortness of breath CARDIOVASCULAR: chronic leg edema GI: No nausea, vomiting, or diarrhea : On dialysis CARE ASSOCIATE: Not reviewed MUSCULOSKELETAL: Negative for joint pain or swelling, back pain or muscle pain SKIN: Not reviewed PSYCH: Negative HEMATOLOGY/LYMPHOLOGY: Negative for prolonged bleeding, bruising easily or swollen nodes ENDOCRINE: Negative for cold or heat intolerance, polyuria, polydipsia and goiter NEURO: No history of headaches, syncope, paralysis, seizures or tremors PHYSICAL EXAM: Patient Vitals for the past 24 hrs: BP Temp Temp src Pulse Resp SpO2 Height Weight 09/23/18 0851 - 36.3 ?C (97.4 ?F) Oral - - - - - 09/23/18 0809 (!) 88/49 - - 72 16 95 % - - 09/23/18 0600 - - - - - - - 92.1 kg (203 lb 0.7 oz) 09/23/18 0425 106/58 36.3 ?C (97.4 ?F) Oral 80 16 97 % - - 09/22/18 2335 (!) 92/46 36.6 ?C (97.9 ?F) Oral 75 16 97 % - - 09/22/18 1933 (!) 102/42 36.4 ?C (97.6 ?F) Oral 71 16 98 % - - 09/22/18 1531 (!) 111/48 36.4 ?C (97.5 ?F) Oral 79 16 98 % 172.7 cm (5' 8) 92.2 kg (203 lb 4.2 oz) 09/22/18 1430 109/58 - - 72 16 98 % - - 09/22/18 1415 114/51 - - 74 16 99 % - - 09/22/18 1345 85/58 - - 75 16 99 % - - 09/22/18 1255 98/56 - - 71 - 98 % - - 09/22/18 1247 (!) 91/49 - - (!) 37 16 98 % - - 09/22/18 1210 108/64 - - 73 16 96 % - - 09/22/18 1200 89/51 - - 74 16 97 % - - 09/22/18 1152 102/58 - - 75 16 93 % - - 09/22/18 1145 89/53 - - 73 16 95 % - - 09/22/18 1129 112/65 36 ?C (96.8 ?F) - 75 16 97 % - - Body mass index is 30.87 kg/m?. GENERAL: Alert SKIN: Skin color, texture, turgor normal. No rashes or lesions. HEAD/SINUSES: No significant findings EYES: EOMI EARS: External ears normal, canals clear NOSE: Nares normal. Septum midline. OROPHARYNX: Lips, mucosa, and tongue normal. Teeth and gums normal. Oropharynx normal. NECK: No carotid bruits LUNGS: diminished BS, on O2 CARDIAC: no rub ABDOMEN: soft EXTREMITIES: 1+ edema, wrapped NEURO: no focal deficits ACCESS: no thrill or bruit over AVF DATA: Recent Labs 09/23/18 0431 CREAT 5.46* BUN 34* NA 139 K 4.1 CHLOR 95* WBC 6.04 ALB 3.1* Hb 10.9 ASSESSMENT AND PLAN: 1. ESRD on HD MWF 2. 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 Currently no thrill or bruit over AVF in right arm 4. Recurrent hypotension especially during dialysis - due to pulm HTN and TR with preload dependence Plan: 1. HD today with UF as tolerated 2. Might consider midodrine use but should be discussed with her supervisor porcelain department since she has significant heart disease 3. Probably needs another intervention or a creation of a new AVF 4. Hold WILLY today OK with me for DC after dialysis if tolerates ok SIGNATURE: Malena Bray MD DATE: September 23, 2018 TIME: 9:12 AM September 23, 2018 09/23/2018 NURSING PROG Observed: 09/23/2018 Status: COMPLETED Source: [place] 8:00 AM CLINIC OTHER CAMPUS REPOSITORY HNO ID: [id number] Author: Reanna (Rn) ALLYSON Davalos Service: Nursing Author Type: Registered Nurse Type: Nursing Progress Note Filed: 09/23/2018 7:12 PM Note Text: Nursing Progress Note Patient Name: Luz Baca Patient [id number] Daily Note: Pt AANDO x 3, c/o pain in RUE 03/27. Tylenol given. Fistula site with bruit auscultated and pulse noted. Fingers warm to touch and sensation intact. Pt up to chair. Breakfast arrived. Blood glucose 91. Pt scheduled for 50 units of lantus. Call placed to hospitalist. Lungs clear, resp even and nonlabored on O2 at 2L/min NC. Abd soft, nontender, BS + x 4. No edema. Dressings to BLE DANDI. Second page to hospitalist Third page to hospitalist 1100 Hospitalist on floor and questioned dose of Lantus. New order received. 1130 Pt resting in bed. Tramadol given for pain, trobbing sensation in right upper arm. 1245 Pt taken to dialysis. 1645 Pt ret'd from dialysis. Vitals taken. Dietary called and dinner ordered. [address] Marino and Dr Hogan at bedside. Dressings to BLE changed. BLE washed with mild no rinse soap and bacitracin applied, telfa applied and kerlex used to wrap legs. Tele and IV cath removed. Pt fnished eating and discharge instructions and med list discussed. F/Up appt reviewed. Pt AANDO x 3, calm and cooperative. 1845 Pt taken out via w/c to home. This note was completed by: Reanna Davalos RN CBC Collected: 09/23/2018 Status: F Source: [place] 4:31 AM [facility] OTHER [place] REPOSITORY TYPE CODE TESTS RESULT OUT OF REFERENCE UNITS RANGE LAB WBC 3.70-11.00 k/uL WBC 6.04 LAB RBC 3.90-5.20 m/uL Low RBC 3.52 LAB HGB 11.5-15.5 g/dL Low Hemoglobin 10.9 LAB HCT 36.0-46.0 % Low Hematocrit 35.2 LAB MCV 80.0-100.0 fL MCV 100.0 LAB MCH 26.0-34.0 pG MCH 31.0 LAB MCHC 30.5-36.0 g/dL MCHC 31.0 LAB RDWCV 11.5-15.0 % RDW-CV 14.3 LAB PLTCT 150-400 k/uL Low Platelet Count 116 LAB MPV 9.0-12.7 fL MPV 9.6 Performed By: #### CBC, RFP #### [facility] [address] [facility] [phone] RENAL FUNCTION PANEL Collected: 09/23/2018 Status: F Source: [place] 4:31 AM [facility] OTHER [place] REPOSITORY TYPE CODE TESTS RESULT OUT OF REFERENCE UNITS RANGE LAB ALB 3.9-4.9 g/dL Low Albumin 3.1 LAB CA 8.5-10.2 mg/dL Low Calcium, Total 8.4 LAB PHOS 2.7-4.8 mg/dL High Phosphorus 6.5 LAB GLU 74-99 mg/dL Glucose 88 Result Comment: The [place] [employer] Association (ADA) provides guidance for cutoff values for fasting glucose and random glucose. The ADA defines fasting as no caloric intake for at least 8 hours. Fas ting plasma glucose results between 100 to 125 mg/dL indicate increased risk for diabetes (prediabetes). Fasting plasma glucose results greater than or equal to 126 mg/dL meet the criteria for diagnosis of diabetes. In the absence of unequivocal hyperglycemia, results should be confirmed by repeat testing. In a patient with classic symptoms of hyperglycemia or hyperglycemic crisis, random plasma glucose results greater than or equal to 200 mg/dL meet the criteria for diagnosis of diabetes. Reference: Standards of Medical Care in Diabetes 2016, [place] [employer] Association. Diabetes Care. 2016.39(Suppl 1). LAB BUN 7-21 mg/dL BUN High 34 LAB CRET 0.58-0.96 mg/dL Creatinine High 5.46 LAB NA 136-144 mmol/L Sodium 139 LAB K 3.7-5.1 mmol/L Potassium 4.1 LAB CL 97-105 mmol/L Low Chloride 95 LAB CO2 22-30 mmol/L CO2 High 31 LAB AGAP 9-18 mmol/L Anion Gap 13 LAB GFRAA eGFR- 9 Amer. LAB GFRNAA . eGFR-All Other Races 8 Result Comment: eGFR (Estimated GFR) Units of measure: mL/min/1.73 meters squared eGFR is derived from the reexpressed MDRD Study equation using the following parameters: serum creatinine, age, gender and race. The creatinine assay has been calibrated to be traceable to IDMS. An eGFR <60 mL/min/1.73m2 for >3 months is consistent with chronic kidney disease. Refer to KDOQI guidelines for clinical interpretation. In patients with unstable renal function, e.g. those with acute kidney injury, the eGFR may not accurately reflect actual GFR. Performed By: #### CBC, RFP #### [facility] [address] [facility] [phone] CNCO Observed: 09/23/2018 Status: COMPLETED Source: [place] 12:00 AM CLINIC OTHER CAMPUS REPOSITORY Letter Text September 23, [address] [facility] [id number] Dear Ms. Baca, The nurses and staff of [facility] hope this letter finds you feeling well and progressing in your recovery. Our staff would like to thank you for trusting and choosing us for your health care needs. It was an honor for us to provide your nursing care. We know that placing our Patients First and maintaining a culture of continuous improvement each and every day, are essential to the success of our organization. I hope your stay with us has been positive. We want to hear from you. If you have any comments, questions or concerns about your hospital stay, please feel free to contact me, Kalpana Duque RN ([phone]) or email me at, [email or web address] Additionally, you will receive a survey in the mail asking you to rate the care you received while in the hospital. Please take the time to complete and send back the survey, as it is essential to our continued success. I personally review all the results and would appreciate your feedback. Thank you in advance for your participation and thank you for choosing the [facility] for your health needs. Sincerely, Nurse Sfdc Solution Architect: Kalpana Duque RN ([phone]) [facility] Unit: [address] [place] [address] NURSING PROG Observed: 09/22/2018 Status: COMPLETED Source: [place] 6:48 PM CLINIC OTHER CAMPUS REPOSITORY HNO ID: [id number] Author: Reanna (Rn) ALLYSON Davalos Service: Nursing Author Type: Registered Nurse Type: Nursing Progress Note Filed: 09/22/2018 6:57 PM Note Text: Nursing Progress Note Patient Name: Luz Baca Patient Location: [facility]-[id number] Daily Note: Pt AANDO x 3, AV fistula to RUE, bruit auscultated, pulse noted and fingers warm to touch - sensation intact. Dialysis catheter R upper chest, pacer/defib in left chest wall. #22 in left hand leaking blood, flushed well and had good blood return - dressing changed. Assessment completed. Wounds to BLE unwrapped with blisters. Dr Hogan observed and ordered xeroform with ABD and kerlex which was completed. IV leaking and dressing changed for second time. 1800 IV leaking with blood dripping. IV cath removed and venipuncture x 2 with no success. Paula Malhotra RN venipuncture x 1 with #22 in rt FA capped. This note was completed by: Reanna Davalos RN HISTORY PHYSICAL Observed: 09/22/2018 Status: COMPLETED Source: [place] 5:13 PM CLINIC OTHER CAMPUS REPOSITORY HNO ID: [id number] Author: Elsy Adams (Pa) Service: Hospital Medicine Author Type: Physician Transport Driver Type: HANDP Filed: 09/22/2018 5:15 PM Note Text: Attestation signed by Salima Marino Jr. at 09/22/2018 5:32 PM Attending Note I have personally reviewed the MEGAN HANDP and evaluated the patient at bedside. Agree with the assessment and plan. Holding Coreg and Imdur Other additions or changes: None SIGNATURE: Salima Marino Jr., MD DATE: September 22, 2018 TIME: 5:30 PM SERVICE DATE: 09/22/2018 SERVICE TIME: 5:13 PM HOSPITAL MEDICINE HISTORY AND PHYSICAL PCP: Jameson Kamara MD NIGHT AND WEEKEND COVERAGE: Nights: Please contact pager [phone]. SUBJECTIVE Chief Complaint: Hypotension s/p fistulogram HPI: Luz Baca is a pleasant 77 yo woman with PMH of ESRD, HTN, COPD, DM2, CAD, atrial fibrillation with pacemaker who came to the hospital today for fistulogram with Dr. Hogan. After the procedure, the patient remained hypotensive around 85/58, which has been an ongoing problem recently at dialysis. She also has a hematoma to the right upper arm (3.5 in by 2.5 in). She has been admitted for observation of hypotension and further symptom management. PAST MEDICAL HISTORY Diagnosis Date - Arthritis - Atrial fibrillation ([facility]) - CAD (coronary artery disease) stents x9, defibrillator, CABG. Seeing Dr. Cardona - Cardiac defibrillator in place - Cardiomegaly - Carotid artery disease ([facility]) left - Chronic hypoxemic respiratory failure ([facility]) 07/01/2018 - Chronic kidney disease (CKD) stage G3b/A2, moderately decreased glomerular filtration rate (GFR) between 30-44 mL/min/1.73 square meter and albuminuria creatinine ratio between 30-299 mg/g ([facility]) Dr. Martin - COPD (chronic obstructive pulmonary disease) ([facility]) Dr. Cruz - Depression - Diabetes ([facility]) - Diabetic neuropathy ([facility]) - Edema - ESRD (end stage renal disease) on dialysis ([facility]) [facility], Dr. Martin - GERD (gastroesophageal reflux disease) - Gout with hyperuricemia - HH (hiatus hernia) - HOCM (hypertrophic obstructive cardiomyopathy) ([facility]) S/P Septal Myectomy in 2003. Now with LVEF 50% and mod/severe pulm HTN. - HTN (hypertension) - Hyperlipidemia - Morbid obesity with BMI of 40.0-44.9, adult ([facility]) - Presence of combination internal cardiac defibrillator (ICD) and pacemaker - Sleep apnea 2011 not on CPAP, unable to tolerate mask 02/2017 - SVT (supraventricular tachycardia) ([facility]) NSVT and questionable VT in 2003 post op PAST SURGICAL HISTORY Procedure Laterality Date - CABG (1) VEIN GRAFT AND ARTERIAL GRAFT - CHOLECYSTECTOMY HX - DIALYSIS ACCESS SYSTEM - HEART SURGERY HX 07/18/2004 Septal myectomy and CABG x2 (DEBORAH-LAD, SVG-PDA). - HYSTERECTOMY HX - IANDD PERIANAL ABSCESS - PACEMAKER with defib - PAST SURGICAL HISTORY OF left breast nodule removed - PAST SURGICAL HISTORY OF skin lesions removed - STENT PLACEMENT coronary FAMILY HISTORY Problem Relation Age of Onset - Hypertension Mother living at age 93, HTN - Heart Failure Mother NE - Cancer Father age 71, lung cancer - Heart Attack Sister - COPD Brother - Heart Paternal Grandmother - Heart Paternal Grandfather - Heart Sister - Diabetes Sister - Heart Sister - Breast Cancer Sister - Diabetes Sister - Hypertension Brother - Diabetes Brother Social History Substance Use Topics - Smoking status: Former Smoker Packs/day: 2.50 Years: 43.00 Types: Cigarettes Start date: 1961 Quit date: 07/07/2004 - Smokeless tobacco: Never Used - Alcohol use No Medications: Reviewed Allergies: ALLERGIES Allergen Reactions - Aspirin Other: See Comments Patient states that she bled out every orifice, sts not allowed to take it at all. Patient states she was bleeding out of nose and mouth after one dose. - Bactrim [Sulfametho* Other: See Comments My throat swells up. - Latex Rash, Itching Itching and welts. No wheezing or shortness of breath. - Penicillins Rash, Itching Tolerated ceftriaxone during 11/2017 admission and cefepime during 12/2017 admission - Tetracycline Rash, GI Upset Emesis and diarrhea. - Atorvastatin Rash - Codeine Other: See Comments Numbness - Dilaudid [Hydromorp* Mental Status Change - Meperidine - Pentazocine - Pioglitazone Unknown - Propoxyphene Review of Systems: GENERAL: No weight loss, malaise or fevers RESPIRATORY: History of COPD. Negative for cough, hemoptysis, wheezing, or shortness of breath CARDIOVASCULAR: Pacemaker in place. History of CHF, CAD. Negative for chest pain or palpitations MUSCULOSKELETAL: Denies significant arm pain. All other systems reviewed and negative. OBJECTIVE: PHYSICAL EXAM BP 111/48 Pulse 79 Temp (Src) 97.5 (Oral) Resp 16 Ht 5' 8 (1.73m) Wt 203 lb 4.2 oz (92.2kg) SpO2 98% BMI 30.91 kg/(m2). Physical Exam Performed: GENERAL: Alert, pleasant, no distress, cooperative SKIN: Hematoma to right upper arm (3.5in by 2.5 in) HEAD/SINUSES: No significant findings OROPHARYNX: Ecchymosis to bottom lip. Mucosa, and tongue normal. Teeth and gums normal. Oropharynx normal. LUNGS: Lungs clear to auscultation, no rales or wheezes CARDIAC: Pacemaker in place with no signs of infection of overlying skin. Right chest wall port in place. Normal S1 and S2; no rubs, murmurs, or gallops ABDOMEN: Abdomen soft, non-tender, BS normal, No masses or organomegaly EXTREMITIES: Blisters to bilateral lower extremities anterior aspect of lower leg, worse on left leg. Mild edema present bilateral lower extremities. NEURO: AANDOx3. No seizure activity present PULSES: 2+ radial, 2+ posterial tibial, 2+ dorsalis pedis Lines, Drains, and Airways Line Peripheral 09/22/18 0650 Short Left Hand 22 Gauge less than 1 day Reviewed lines, drains, AND airways. Need to be continued PIV Diagnostic tests reviewed: Most recent labs and imaging results Assessment AND Plan, all Hosp Problems Active Hospital Problems as of 09/22/2018 Noted - Resolved Hospital * (Principal)ESRD (end stage renal disease) ([facility]) 09/20/2018 - Present Current Assessment AND Plan Assessment: Patient had dialysis yesterday and is being scheduled for dialysis here tomorrow PLAN: Dialysis tomorrow Renal diet Hypotension 09/22/2018 - Present Current Assessment AND Plan Assessment: Patient was 85/58 after procedure today; now up to 111/48 PLAN: Hold Imdur and coreg for now AV fistula ([facility]) 09/22/2018 - Present Current Assessment AND Plan Assessment: S/p fistulogram today - hematoma to the right upper arm Complains of minor right arm pain PLAN: Dr. Hogan is following Continue to monitor symptoms Tylenol PRN for pain COPD (chronic obstructive pulmonary disease) ([facility]) Unknown - Present Current Assessment AND Plan Assessment: Former smoker with 41 pack year history, quit in 2003 On home oxygen PLAN: Duonebs PRN Continue O2 Atrial fibrillation ([facility]) 09/23/2010 - Present Current Assessment AND Plan Assessment: Paced rhythm seen on tele PLAN: Continue amiodarone Eliquis held since Wednesday Tele monitoring Controlled type 2 diabetes mellitus with chronic kidney disease on chronic dialysis, with long-term current use of insulin ([facility]) 09/23/2004 - Present Current Assessment AND Plan Assessment: Insulin dependent diabetic with neuropathy PLAN: Continue home dose of lantus in AM and HS Continue SSI Hypoglycemic protocol Continue Lyrica for neuropathy Hypertension Unknown - Present Current Assessment AND Plan Assessment: Patient admitted for hypotension after procedure - this has been an ongoing problem at dialysis recently, may to adjust blood pressure medication PLAN: Hold BP meds at this time May need to adjust medication regimen Medication and Non-Pharmacologic VTE Prophylaxis/Anticoagulants 09/22/18 1645 activity - mobilize patient (ar,nc) VTE Prophylaxis: No mechanical prophylaxis due to extensive blistering on bilateral lower extremities SIGNATURE: Elsy Adams PA-C PATIENT NAME: Luz Baca DATE: September 22, 2018 TIME: 5:13 PM PAGER/CONTACT #: [phone] NUTRITION Observed: 09/22/2018 Status: COMPLETED Source: [place] 4:25 PM CLINIC OTHER [place] REPOSITORY HNO ID: [id number] Author: Eduardo Gomez) Bibiana Service: Nutrition Therapy Author Type: Registered Dietitian Type: Nutrition Filed: 09/22/2018 4:28 PM Note Text: NUTRITION THERAPY FOLLOW-UP NOTE SERVICE DATE: 09/22/2018 SERVICE TIME: 4:20 pm Anthropometrics: Height: 172.7 cm (5' 8) Current Weight: Weight: 92.2 kg (203 lb 4.2 oz) Body mass index is 30.91 kg/m?. HT/WT/BMI WEIGHT 06/16/2018 91.627 kg 06/30/2018 91.627 kg 07/12/2018 91.627 kg 07/21/2018 94.348 kg 07/28/2018 94.983 kg 08/02/2018 91.173 kg 08/04/2018 91.173 kg 08/11/2018 92.534 kg 09/22/2018 92.2 kg Admitting Diagnosis: ESRD (end stage renal disease) ([facility]) [N18.6] Malfunctioning AV access Present Diet Order: Renal Reason for Visit: Nursing Admission Assessment Malnutrition Score Tool: 2 Plan of Care: Recommendation Monitor intake. Reviewed physician progress notes and labs. Will follow up in 5 days or as consulted. Discharge Plan: Renal MNT Billing Type: Initial Assess/15 min 1 unit SIGNATURE: Eduardo Mccarty RD, LD PATIENT NAME: Luz Baca DATE: September 22, 2018 TIME: 4:25 PM NURSING PROG Observed: 09/22/2018 Status: COMPLETED Source: [place] 2:34 PM [facility] OTHER [place] REPOSITORY HNO ID: [id number] Author: Mariluz OsheaRn) ALLYSON White Service: Nursing Author Type: Registered Nurse Type: Nursing Progress Note Filed: 09/22/2018 2:51 PM Note Text: Nursing Progress Note Patient Name: Luz Baca Patient Location: [place] [facility] [facility] Report from Sukhwinder VALADEZ, waiting to give report to Piper RN. Family with pt. Made aware of bed assignment This note was completed by: Mariluz White RN [id number] report to Leila Valadez on 2N, PROGRESS Observed: 09/22/2018 Status: COMPLETED Source: [place] 2:09 PM [facility] REPOSITORY HNO ID: [id number] Author: Michael Hogan Service: Vascular Surgery Author Type: Physician Type: Progress Notes Filed: 09/22/2018 2:12 PM Note Text: Post procedure note S: Patient denies any complaints. Denies significant right arm pain O: 09/22/18 1210 09/22/18 1247 09/22/18 1255 09/22/18 1345 BP: 108/64 (!) 91/49 98/56 85/58 Pulse: 73 (!) 37 71 75 Resp: 16 16 16 Temp: SpO2: 96% 98% 98% 99% Weight: Height: Gen- no distress Ext- bruit present in right upper extremity, faint thrill, ecchymosis noted from access site A/P: Failure to mature AV fistula, hypotension Discussed hypotension with patient. This has been an ongoing problem especially at dialysis. Last treatment according to patient they stopped early secondary to low pressure. Discussed with hospitalist who is in agreement with admission for observation. Patient is agreeable. Attempted to contact dialysis unit however they are not there on . She goes to [facility] in [place]. If fistula thromboses, will plan for creation of brachiobasilic NURSING PROG Observed: 09/22/2018 Status: COMPLETED Source: [place] 2:06 PM [facility] REPOSITORY HNO ID: [id number] Author: Sukhwinder OsheaRn) ALLYSON Parsons Service: Nursing Author Type: Registered Nurse Type: Nursing Progress Note Filed: 09/22/2018 2:16 PM Note Text: 1340 Dr Hogan at bedside. Plan to admit patient. Nursing warehouse supervisor 3rd shift notified. Bed assignment received. Room needs to be cleaned. No change in initial assessment to fistula site. NURSING PROG Observed: 09/22/2018 Status: COMPLETED Source: [place] 1:18 PM [facility] REPOSITORY HNO ID: [id number] Author: Li OsheaRn) ALLYSON Whatley Service: (none) Author Type: Registered Nurse Type: Nursing Progress Note Filed: 09/22/2018 1:20 PM Note Text: 12 Lead down at bedside. Dr Hogan read interpretation to her. Dr hogan will call back Uppdated to Sukhwinder EKG Observed: 09/22/2018 Status: F Source: [place] 1:11 PM [facility] OTHER CAMPUS REPOSITORY NAME : LUZ BACA PID : [id number] : 1940 Gender : Female Race : ORD : [id number] Procedure Date : Sep 22 2018 13:11:15 Edit Date : 2018 13:09:27 Diagnosis: SUSPECT ARM LEAD REVERSAL, INTERPRETATION ASSUMES NO REVERSAL DEMAND PACEMAKER; INTERPRETATION IS BASED ON INTRINSIC RHYTHM WIDE QRS RHYTHM WITH PREMATURE VENTRICULAR COMPLEXES OR FUSION COMPLEXES RIGHT BUNDLE BRANCH BLOCK INFERIOR INFARCT , AGE UNDETERMINED ANTEROLATERAL INFARCT , AGE UNDETERMINED ABNORMAL ECG WHEN COMPARED WITH ECG OF 18-FEB-2018 17:29, PREVIOUS ECG HAS UNDETERMINED RHYTHM, NEEDS REVIEW Confirmed by CLAY GARCIA D.O. ([id number]) on 2018 1:09:21 PM Ventricular Rate : 69 BPM Atrial Rate : 36 BPM QRS Duration : 188 ms Q-T Interval : 516 ms QTC Calculation(Bezet) : 552 ms R Dupont : 259 degrees T Dupont : 99 degrees Test Reason : Arrhythmia Location : 8 : OR/RR 15 Overread By : CLAY GARCIA D.O. Edited By : CLAY GARCIA D.O. Referred By : DR HOGAN, Acquired by : Shirley Bello NURSING PROG Observed: 09/22/2018 Status: COMPLETED Source: [place] 12:48 PM [facility] OTHER CAMPUS REPOSITORY HNO ID: [id number] Author: Li OsheaRn) ALLYSON Whatley Service: (none) Author Type: Registered Nurse Type: Nursing Progress Note Filed: 09/22/2018 12:49 PM Note Text: Dr Hogan called vs obtained and Dr horvath. Dr hogan does not want pt to be discharged and will call back and check on pt. NURSING PROG Observed: 09/22/2018 Status: COMPLETED Source: [place] 12:30 PM [facility] OTHER CAMPUS REPOSITORY HNO ID: [id number] Author: Sukhwinder OsheaRn) ALLYSON Parsons Service: Nursing Author Type: Registered Nurse Type: Nursing Progress Note Filed: 09/22/2018 1:54 PM Note Text: Patient arrived to ascu 15 phase 2 stable condition. Patient has a soft hematoma/bruising (light to dark purple)to right upper arm (surgical site). No active bleeding. Area outlined. per Mariluz VALADEZ area has not increased in size. Will continue to monitor site. Unable to detect bruit or thrill. Informed Dr Hogan has already assessed this and has seen hematoma. Palpable radial pulse. NURSING PROG Observed: 09/22/2018 Status: COMPLETED Source: [place] 11:40 AM [facility] REPOSITORY HNO ID: [id number] Author: Mariluz (Rn) ALLYSON White Service: Nursing Author Type: Registered Nurse Type: Nursing Progress Note Filed: 09/22/2018 11:42 AM Note Text: Nursing Progress Note Patient Name: Luz Baca Patient Location: [place] [facility] [facility] pt arrived to PACU 4 awake taking at bedside talking with pt, evaluating hematoma to R upper arm measuring 3.5 inches wide by 2.5 inches long, DRSG X 2 to upper arm D/I, hematoma soft pt denies pain, Per MD + thrill and bruit, temp dialysis cath to R chest Site without deficit. PT relates had dialysis yesterday. VSS. This note was completed by: Mariluz White RN BRIEF OP NOT Observed: 09/22/2018 Status: COMPLETED Source: [place] 9:52 AM [facility] REPOSITORY HNO ID: [id number] Author: Michael Hogan Service: Vascular Surgery Author Type: Physician Type: Brief Op Note Filed: 09/22/2018 11:03 AM Note Text: BRIEF OP NOTE LOG ID: [id number] Surgery/Procedure Date: 09/22/2018 Incision/Procedure Start Time: 7:57 AM Incision Close/Procedure End Time: Surgeon(s)/Proceduralist(s) and Transport Driver(s): Surgeon(s) and Role: * Michael Hogan - Primary Procedure(s): Fistulogram- balloon assisted maturation, cephalic vein angioplasty with [id number] mustang, [id number] Secret Code Expert, [id number] [place], distal cephalic vein angioplasty inflow stenosis [id number] [place], [id number] [place] Anesthesia: Procedural Sedation Findings: inflow and outflow stenosis Estimated Blood Loss: minimal Specimens: None Complications: None Pre-Op/Pre-Procedure Diagnosis: Failure to mature arteriovenous fistula, Post-Op/Post-Procedure Diagnosis: same SIGNATURE: Michael Hogan DO PATIENT NAME: Luz Baca DATE: September 22, 2018 TIME: 9:52 AM PAGER/CONTACT #: HISTORY PHYSICAL Observed: 09/22/2018 Status: COMPLETED Source: [place] 7:37 AM CLINIC OTHER CAMPUS REPOSITORY HNO ID: [id number] Author: Michael Hogan Service: Vascular Surgery Author Type: Physician Type: HANDP Filed: 09/22/2018 7:40 AM Note Text: HISTORY AND PHYSICAL EXAMINATION SERVICE DATE: 09/22/2018 SERVICE TIME: 7:37 AM PRIMARY CARE PHYSICIAN: Jameson Kamara MD Subjective CHIEF COMPLAINT: Malfunctioning AV access HPI: This is a 77 year old female who presents with right upper extremity brachiocephalic av fistula who noted to having decreased thrill. Had duplex which demonstrated distal cephalic vein stenosis however remains patent FUNCTIONAL STATUS: Partially dependent PAST MEDICAL HISTORY Diagnosis Date - Arthritis - Atrial fibrillation ([facility]) - CAD (coronary artery disease) stents x9, defibrillator, CABG. Seeing Dr. Cardona - Cardiac defibrillator in place - Cardiomegaly - Carotid artery disease ([facility]) left - Chronic hypoxemic respiratory failure ([facility]) 07/01/2018 - Chronic kidney disease (CKD) stage G3b/A2, moderately decreased glomerular filtration rate (GFR) between 30-44 mL/min/1.73 square meter and albuminuria creatinine ratio between 30-299 mg/g ([facility]) Dr. Martin - COPD (chronic obstructive pulmonary disease) ([facility]) Dr. Cruz - Depression - Diabetes ([facility]) - Diabetic neuropathy ([facility]) - Edema - ESRD (end stage renal disease) on dialysis ([facility]) [facility], Dr. Martin - GERD (gastroesophageal reflux disease) - Gout with hyperuricemia - HH (hiatus hernia) - HOCM (hypertrophic obstructive cardiomyopathy) ([facility]) S/P Septal Myectomy in 2003. Now with LVEF 50% and mod/severe pulm HTN. - HTN (hypertension) - Hyperlipidemia - Morbid obesity with BMI of 40.0-44.9, adult ([facility]) - Presence of combination internal cardiac defibrillator (ICD) and pacemaker - Sleep apnea 2011 not on CPAP, unable to tolerate mask 02/2017 - SVT (supraventricular tachycardia) ([facility]) NSVT and questionable VT in 2003 post op PAST SURGICAL HISTORY Procedure Laterality Date - CABG (1) VEIN GRAFT AND ARTERIAL GRAFT - CHOLECYSTECTOMY HX - DIALYSIS ACCESS SYSTEM - HEART SURGERY HX 07/18/2004 Septal myectomy and CABG x2 (DEBORAH-LAD, SVG-PDA). - HYSTERECTOMY HX - IANDD PERIANAL ABSCESS - PACEMAKER with defib - PAST SURGICAL HISTORY OF left breast nodule removed - PAST SURGICAL HISTORY OF skin lesions removed - STENT PLACEMENT coronary FAMILY HISTORY Problem Relation Age of Onset - Hypertension Mother living at age 93, HTN - Heart Failure Mother NE - Cancer Father age 71, lung cancer - Heart Attack Sister - COPD Brother - Heart Paternal Grandmother - Heart Paternal Grandfather - Heart Sister - Diabetes Sister - Heart Sister - Breast Cancer Sister - Diabetes Sister - Hypertension Brother - Diabetes Brother Social History Substance Use Topics - Smoking status: Former Smoker Packs/day: 2.50 Years: 43.00 Types: Cigarettes Start date: 1961 Quit date: 07/07/2004 - Smokeless tobacco: Never Used - Alcohol use No Prescriptions Prior to Admission: carvedilol (COREG) 3.125 mg tablet Take 1 tablet by mouth twice daily with meals. Disp: 60 tablet Rfl: 09/21/2018 at 1730 amiodarone (PACERONE) 200 mg tablet Take 1 tablet by mouth once daily. Disp: 30 tablet Rfl: 09/21/2018 at 0800 simvastatin (ZOCOR) 40 mg tablet Take 1 tablet by mouth every morning. Disp: 90 tablet Rfl: 09/21/2018 at 0800 isosorbide mononitrate ER (IMDUR) 30 mg 24 hr tablet TAKE THREE TABLETS BY MOUTH ONCE DAILY Disp: 270 tablet Rfl: 09/21/2018 at 1730 insulin glargine (LANTUS SOLOSTAR U-100 INSULIN) 100 unit/mL (3 mL) inpn Inject 28 Units subcutaneously daily at bedtime. Disp: Rfl: 09/21/2018 at 2100 insulin glargine (LANTUS SOLOSTAR U-100 INSULIN) 100 unit/mL (3 mL) inpn Inject 50 Units subcutaneously every morning. Disp: 10 Pen Rfl: 1 09/21/2018 at 0800 bacitracin zinc (ANTIBIOTIC, BACITRACIN ZINC,) 500 unit/gram ointment Apply 1 application to affected area twice daily. Disp: 1 Tube Rfl: 1 09/21/2018 at Unknown time pregabalin (LYRICA) 25 mg capsule Take 1 tablet PO daily with an additional 1 tablet PO after dialysis MWF Disp: 45 capsule Rfl: 2 09/21/2018 at 1730 metoclopramide HCl (REGLAN) 5 mg tablet Take 1 tablet by mouth three times daily. Disp: 90 tablet Rfl: 2 09/21/[address] (PROTONIX) 40 mg tablet Take 1 tablet by mouth once daily. Disp: Rfl: 09/21/2018 at 0800 OXYGEN, HOME THERAPY, Inhale 2.5 L/min as instructed continuous. 3 L/min when leaves home. Disp: Rfl: 09/22/2018 at Unknown time silver sulfADIAZINE (SILVADENE,THERMAZENE) 1 % cream Apply 1 application to affected area once daily. Disp: 25 g Rfl: 1 Unknown at Unknown time hydrOXYzine HCl (ATARAX) 25 mg tablet Take 1 tablet by mouth every 12 hours as needed for Itching/Rash. Disp: 30 tablet Rfl: 0 09/20/2018 apixaban (ELIQUIS) 5 mg tab(s) Take 1 tablet by mouth twice daily. Disp: 60 tablet Rfl: 5 09/17/2018 insulin aspart U-100 (NOVOLOG FLEXPEN U-100 INSULIN) 100 unit/mL inpn Using Sliding Scale: 150-209 1 unit, 210-269 2 units, 270- 329 3 units, 330-389 4 units, 390-449 5 units Disp: 5 Pen Rfl: 1 Unknown at Unknown time polyethylene glycol 3350 (MIRALAX) 17 gram/dose powder Use 1-2 times daily as needed for constipation. Disp: 1 Bottle Rfl: Unknown at Unknown time senna (SENNA) 8.6 mg tab Take 8.6 mg by mouth once daily. Disp: Rfl: Unknown at Unknown time ondansetron (ZOFRAN) 4 mg tablet Take 4 mg by mouth every 8 hours as needed. Disp: Rfl: Unknown at Unknown time ipratropium-albuterol (DUONEB) 0.5 mg-3 mg(2.5 mg base)/3 mL nebu Inhale 3 mL as instructed every 4 hours while awake. And prn for wheezing/shortness of breath. Disp: 180 Vial Rfl: 5 Unknown at Unknown time budesonide (PULMICORT) 0.5 mg/2 mL nebulizer solution Use 2 mL via nebulizer once daily. INHALE 2 ML BY NEBULIZER OVER 5-15 MINUTES EVERY 12 HOURS. Disp: 60 Vial Rfl: 5 Unknown at Unknown time nystatin (NYSTOP) powder Apply 1 application to affected area three times daily. Disp: 60 g Rfl: 2 Unknown at Unknown time guaiFENesin-dextromethorphan (ROBITUSSIN DM) 100-10 mg/5 mL syrup Take 5-10 mL by mouth every 6 hours as needed for Cough. Disp: 118 mL Rfl: 0 Unknown at Unknown time nitroglycerin sublingual (NITROQUICK) 0.4 mg SL tablet Dissolve 1 tablet under the tongue every 5 minutes as needed. Disp: 1 Bottle of 25 Rfl: 0 Unknown at Unknown time ALLERGIES Allergen Reactions - Aspirin Other: See Comments Patient states that she bled out every orifice, sts not allowed to take it at all. Patient states she was bleeding out of nose and mouth after one dose. - Bactrim [Sulfametho* Other: See Comments My throat swells up. - Latex Rash, Itching Itching and welts. No wheezing or shortness of breath. - Penicillins Rash, Itching Tolerated ceftriaxone during 11/2017 admission and cefepime during 12/2017 admission - Tetracycline Rash, GI Upset Emesis and diarrhea. - Atorvastatin Rash - Codeine Other: See Comments Numbness - Dilaudid [Hydromorp* Mental Status Change - Meperidine - Pentazocine - Pioglitazone Unknown - Propoxyphene COMPLETE REVIEW OF SYSTEMS: GENERAL: No weight loss, malaise or fevers RESPIRATORY: Negative for cough, hemoptysis, wheezing, COPD, dyspnea or shortness of breath CARDIOVASCULAR: Negative for chest pain, leg swelling, hypertension, CHF or palpitations GI: No nausea, vomiting, or diarrhea HEMATOLOGY/LYMPHOLOGY: Negative for prolonged bleeding, bruising easily or swollen nodes ENDOCRINE: Negative for cold or heat intolerance, polyuria, polydipsia and goiter NEURO: No history of headaches, syncope, paralysis, seizures or tremors Objective PHYSICAL EXAM: Physical Exam Performed: GENERAL: Alert, no distress, cooperative LUNGS: Lungs clear to auscultation, Good diaphragmatic excursion CARDIAC: Normal S1 and S2; no rubs, murmurs, or gallops ABDOMEN: Soft, nontender EXTREMITIES: doppler flow in fistula, no upper extremity edema, bilateral lower extremity edema BP 127/57 Pulse 64 Temp 96.8 Resp 16 Ht 5' 7.992 (1.73m) Wt 231 lb 14.8 oz (105.2kg) SpO2 97% BMI 35.27 kg/(m2). DATA: Diagnostic tests reviewed for today's visit: Most recent labs and imaging results. Assessment/Plan Principal Problem: ESRD (end stage renal disease) (HCC) POA: Unknown Assessment AND Plan: Will plan for fistulogram with possible intervention Medication and Non-Pharmacologic VTE Prophylaxis/Anticoagulants VTE Prophylaxis: VTE prophylaxis appropriate SIGNATURE: Michael Hogan DO PATIENT NAME: Luz Baca DATE: September 22, 2018 TIME: 7:37 AM PAGER/CONTACT #: [id number] NURSING PROG Observed: 09/22/2018 Status: COMPLETED Source: [place] 6:56 AM [facility] REPOSITORY HNO ID: [id number] Author: Frantz Briseno) ALLYSON Wagner Service: Nursing Author Type: Registered Nurse Type: Nursing Progress Note Filed: 09/22/2018 6:58 AM Note Text: Pts daughter and ride has to leave around 9 and will not be back to the hospital until around 1. PT ED Observed: 09/22/2018 Status: COMPLETED Source: [place] 6:54 AM [facility] REPOSITORY HNO ID: [id number] Author: Frantz Briseno) ALLYSON Wagner Service: Nursing Author Type: Registered Nurse Type: Patient Education Filed: 09/22/2018 6:55 AM Note Text: PRE OP LEARNING ASSESSMENT PROCEDURE/SURGERY: SURGERY: intro needle cath right fistula READINESS TO LEARN COGNITIVE ABILITY: Alert and oriented MOTIVATION TO LEARN: Eager FAMILY SUPPORT: High - Very involved in pt care PATIENT LEARNS BEST BY: Written Instruction - Hand-outs Verbal Instruction FACTORS AFFECTING LEARNING: None PHYSICAL LIMITATIONS AFFECTING LEARNING: None Electronically Signed By: Frantz Wagner RN In Department: [facility] HEEL SEAT FITTER MACHINE OPERATIVE NO Observed: 09/22/2018 Status: COMPLETED Source: [place] 12:00 AM [facility] OTHER CAMPUS REPOSITORY HNO ID: [id number] Author: Michael Hogan Service: Vascular Surgery Author Type: Physician Type: Operative Report Filed: 10/13/2018 2:22 PM Note Text: [facility] - Operative Report LUZ BACA : 1940 AGE: 77. SEX: F PATIENT TYPE: V HOSP SVC: INT LOCATION: [id number] ATTENDING PHYSICIAN: Michael Hogan D.O. CSN NUMBER: [id number] DATE OF SURGERY/PROCEDURE: 09/22/2018 INCISION/PROCEDURE START TIME: 7:57. 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 SURGEON: Michael Hogan D.O. VMWARE ENGINEER: No Additional Staff SURGERY/PROCEDURE: 1. Fistulogram balloon-assisted maturation with cephalic vein angioplasty with a 3 mm x 100 mm [place], 5 mm x 200 mm Secret Code Expert, 6 mm x 80 cm [place]. 2. Distal cephalic vein inflow stenosis angioplasty with a 3 mm x 100 mm [place] and a 5 mm x 100 mm [place]. ANESTHESIA: Procedural sedation. INDICATIONS: The patient is a 77-year-old female who had undergone a creation of a right upper extremity brachiocephalic AV fistula in June. She was allowed for maturation. She was recently seen at dialysis, and they no longer felt a thrill. She did still have a bruit present. We did a duplex that demonstrated flow was still patent through that, however it was significantly decreased. There was a stenosis just at the midportion of her cephalic vein. With this, it was recommended she undergo a fistulogram. The risks, benefits, and alternatives were discussed with the patient and consent obtained. DESCRIPTION OF PROCEDURE: The patient was taken to the finishing lab technician. She was placed supine on the Kitchen Steward table. Her right arm was prepped and draped in standard sterile fashion. A time-out was performed. Following this, she was given adequate sedation. We then attempted to get ultrasound-guided access in a retrograde fashion in her proximal cephalic vein via micropuncture technique; however, I was unable to gain access proximal vein did become significantly small. I was able to get access in an antegrade fashion via micropuncture technique just distal to her arterial anastomosis, exchanged to a 4-[place] sheath. I was able to get a Glidewire through the cephalic vein into the central system, performed a fistulogram which demonstrated significant stenosis of her upper arm cephalic vein. It was just small throughout its course into the cephalic arch centrally. We again were able to get a [place] catheter through that centrally, she was widely patent. With this, she was exchanged to a 6-[place] sheath. She was heparinized, and I dilated the area of stenosis with initially a 3 mm x 100 mm [place] and then sequentially with a 5 mm x 200 mm Secret Code Expert and a 6 mm x 80 mm [place]. She did have improved flow. We decompressed and refluxed proximally. She had an inflow stenosis. With this, our wire and sheath were removed, and a horizontal mattress suture of 3-0 Prolene was applied. I was able to obtain access in a retrograde fashion. I got a wire into the brachial artery. We dilated the inflow with a 3 mm x 100 mm [place] and a 5 mm x 100 mm [place]. Upon completion, she had significant improvement, she had a thrill. Excellent flow was noted. She was heparinized prior to angioplasty. Throughout the case, it should be noted that the patient did remain relatively hypotensive; however, she was alert, oriented, and asymptomatic from this. She did have two episodes of some nausea with dry heaves for which she was treated with Zofran. We did remove our second access, the retrograde access, and manual pressure was held. However, she moved and she did develop a hematoma in her upper arm. We were able to hold pressure and her arm was soft. Bleeding was controlled. We then put a sterile dressing with 2 x 2 and Tegaderm was applied. The patient still had a thrill and definite bruit was present. However, it was diminished from her initial onset. The plan was to bring the patient back to dilate the entire vein if it was to maintain patency. With this, the patient was stable and taken to the postanesthesia care unit in a stable condition. Plans were for dialysis today. Michael Hogan D.O. ZOILA:[id number] /[id number] HOSP Observed: 09/20/2018 Status: COMPLETED Source: [place] 12:00 AM [facility] OTHER CAMPUS REPOSITORY Patient:Luz Baca MRN: <[id number]> Height:5' 8(1.727 m) Weight:0 lb (0 kg) Outpatient Medications as of 09/22/18: silver sulfADIAZINE (SILVADENE,THERMAZENE) 1 % cream hydrOXYzine HCl (ATARAX) 25 mg tablet carvedilol (COREG) 3.125 mg tablet amiodarone (PACERONE) 200 mg tablet simvastatin (ZOCOR) 40 mg tablet isosorbide mononitrate ER (IMDUR) 30 mg 24 hr tablet insulin glargine (LANTUS SOLOSTAR U-100 INSULIN) 100 unit/mL (3 mL) inpn apixaban (ELIQUIS) 5 mg tab(s) insulin aspart U-100 (NOVOLOG FLEXPEN U-100 INSULIN) 100 unit/mL inpn insulin glargine (LANTUS SOLOSTAR U-100 INSULIN) 100 unit/mL (3 mL) inpn bacitracin zinc (ANTIBIOTIC, BACITRACIN ZINC,) 500 unit/gram ointment polyethylene glycol 3350 (MIRALAX) 17 gram/dose powder pregabalin (LYRICA) 25 mg capsule metoclopramide HCl (REGLAN) [address] (PROTONIX) 40 mg tablet senna (SENNA) 8.6 mg tab ondansetron (ZOFRAN) 4 mg tablet ipratropium-albuterol (DUONEB) 0.5 mg-3 mg(2.5 mg base)/3 mL nebu budesonide (PULMICORT) 0.5 mg/2 mL nebulizer solution nystatin (NYSTOP) powder guaiFENesin-dextromethorphan (ROBITUSSIN DM) 100-10 mg/5 mL syrup nitroglycerin sublingual (NITROQUICK) 0.4 mg SL tablet OXYGEN, HOME THERAPY, Admission/Clinic Administered Medications as of 09/22/18: Patient has no admission medications. Problem List: CAD (coronary artery disease) [I25.10] Hypertension [I10] Hyperlipidemia [E78.5] COPD (chronic obstructive pulmonary disease) ([facility]) [J44.9] Sleep apnea [G47.30] GERD (gastroesophageal reflux disease) [K21.9] Arthritis [M19.90] Depression [F32.9] Atrial fibrillation ([facility]) [I48.91] Controlled type 2 diabetes mellitus with chronic kidney disease on chronic dialysis, with long-term current use of insulin ([facility]) [E11.22, N18.6, Z79.4, Z99.2] Obesity [E66.09] Gout [M10.9] Pacemaker [Z95.0] Chronic combined systolic and diastolic CHF (congestive heart failure) ([facility]) [I50.42] Pulmonary hypertension ([facility]) [I27.20] Hyponatremia [E87.1] Acute renal failure superimposed on stage 3 chronic kidney disease ([facility]) [N17.9, N18.3] Obesity, Class II, BMI 35-39.9 [E66.9] ESRD on dialysis ([facility]) [N18.6, Z99.2] Chronic hypoxemic respiratory failure ([facility]) [J96.11] Bilateral leg ulcer, limited to breakdown of skin ([facility]) [L97.911, L97.921] ESRD (end stage renal disease) ([facility]) [N18.6] Allergies: Aspirin Bactrim [Sulfamethoxazole-Trimethoprim] Latex Penicillins Tetracycline Atorvastatin Codeine Dilaudid [Hydromorphone (Bulk)] Meperidine Pentazocine Pioglitazone Propoxyphene Date Verified: 09/19/18 Lab Values No results within the last 30 days for the following basenames: K,HCT Progress Notes ([facility]): Jesi Foster, MSN LOCAL DRIVER.BACKHAUL DRIVER 09/19/2018 11:00 AM Signed Chief Complaint Patient presents with: Wound Check: right wrist area HPI Luz Baca is a 77 year old female who presents here today for Above Complaints. Brought here by daughter who is present for this visit. Has small skin tear right wrist 2/2 patient picking and scratching dry skin. Daughter describes as small pin point spot that keeps oozing. She is on Eliquis however it has been temporarily held due to eye laser surgery later today, last dose 48 hours ago. Has been using Bacitracin ointment, pressure (15 minutes) without benefti, however it continues to ooze. Has been oozing for over one week. Reports seen 2 days ago for small open sores on both lower legs. Daughter states she is now using Silvadene Cream and areas look much better. Has fistula in same arm for Dialysis, not been used yet for dialysis. Has f/u apt with Vascular Surgeon next month. The ROS is otherwise negative. Past medical history, appointments, medications, allergies reviewed. Patient Allergies ALLERGIES Allergen Reactions - Aspirin Other: See Comments Patient states that she bled out every orifice, sts not allowed to take it at all. Patient states she was bleeding out of nose and mouth after one dose. - Bactrim [Sulfametho* Other: See Comments My throat swells up. - Latex Rash, Itching Itching and welts. No wheezing or shortness of breath. - Penicillins Rash, Itching Tolerated ceftriaxone during 11/2017 admission and cefepime during 12/2017 admission - Tetracycline Rash, GI Upset Emesis and diarrhea. - Atorvastatin Rash - Codeine Other: See Comments Numbness - Dilaudid [Hydromorp* Mental Status Change - Meperidine - Pentazocine - Pioglitazone Unknown - Propoxyphene Current Medications Current Outpatient Prescriptions on File Prior to Visit: silver sulfADIAZINE (SILVADENE,THERMAZENE) 1 % cream Apply 1 application to affected area once daily. hydrOXYzine HCl (ATARAX) 25 mg tablet Take 1 tablet by mouth every 12 hours as needed for Itching/Rash. carvedilol (COREG) 3.125 mg tablet Take 1 tablet by mouth twice daily with meals. amiodarone (PACERONE) 200 mg tablet Take 1 tablet by mouth once daily. simvastatin (ZOCOR) 40 mg tablet Take 1 tablet by mouth every morning. isosorbide mononitrate ER (IMDUR) 30 mg 24 hr tablet TAKE THREE TABLETS BY MOUTH ONCE DAILY insulin glargine (LANTUS SOLOSTAR U-100 INSULIN) 100 unit/mL (3 mL) inpn Inject 28 Units subcutaneously daily at bedtime. apixaban (ELIQUIS) 5 mg tab(s) Take 1 tablet by mouth twice daily. insulin aspart U-100 (NOVOLOG FLEXPEN U-100 INSULIN) 100 unit/mL inpn Using Sliding Scale: 150-209 1 unit, 210-269 2 units, 270-329 3 units, 330-389 4 units, 390-449 5 units insulin glargine (LANTUS SOLOSTAR U-100 INSULIN) 100 unit/mL (3 mL) inpn Inject 50 Units subcutaneously every morning. bacitracin zinc (ANTIBIOTIC, BACITRACIN ZINC,) 500 unit/gram ointment Apply 1 application to affected area twice daily. polyethylene glycol 3350 (MIRALAX) 17 gram/dose powder Use 1-2 times daily as needed for constipation. pregabalin (LYRICA) 25 mg capsule Take 1 tablet PO daily with an additional 1 tablet PO after dialysis MWF metoclopramide HCl (REGLAN) 5 mg tablet Take 1 tablet by mouth three times daily. pantoprazole DR (PROTONIX) 40 mg tablet Take 1 tablet by mouth once daily. senna (SENNA) 8.6 mg tab Take 8.6 mg by mouth once daily. ondansetron (ZOFRAN) 4 mg tablet Take 4 mg by mouth every 8 hours as needed. ipratropium-albuterol (DUONEB) 0.5 mg-3 mg(2.5 mg base)/3 mL nebu Inhale 3 mL as instructed every 4 hours while awake. And prn for wheezing/shortness of breath. nystatin (NYSTOP) powder Apply 1 application to affected area three times daily. guaiFENesin-dextromethorphan (ROBITUSSIN DM) 100-10 mg/5 mL syrup Take 5-10 mL by mouth every 6 hours as needed for Cough. nitroglycerin sublingual (NITROQUICK) 0.4 mg SL tablet Dissolve 1 tablet under the tongue every 5 minutes as needed. OXYGEN, HOME THERAPY, Inhale 2.5 L/min as instructed continuous. 3 L/min when leaves home. budesonide (PULMICORT) 0.5 mg/2 mL nebulizer solution Use 2 mL via nebulizer once daily. INHALE 2 ML BY NEBULIZER OVER 5-15 MINUTES EVERY 12 HOURS. No current facility-administered medications on file prior to visit. Previous Medical History PAST MEDICAL HISTORY Diagnosis Date - Arthritis - Atrial fibrillation (HCC) - CAD (coronary artery disease) stents x9, defibrillator, CABG. Seeing Dr. Cardona - Cardiac defibrillator in place - Cardiomegaly - Carotid artery disease (HCC) left - Chronic hypoxemic respiratory failure (HCC) 07/01/2018 - Chronic kidney disease (CKD) stage G3b/A2, moderately decreased glomerular filtration rate (GFR) between 30-44 mL/min/1.73 square meter and albuminuria creatinine ratio between 30-299 mg/g ([facility]) Dr. Martin - COPD (chronic obstructive pulmonary disease) ([facility]) Dr. Cruz - Depression - Diabetes ([facility]) - Diabetic neuropathy ([facility]) - Edema - ESRD (end stage renal disease) on dialysis ([facility]) [facility], Dr. Martin - GERD (gastroesophageal reflux disease) - Gout with hyperuricemia - HH (hiatus hernia) - HOCM (hypertrophic obstructive cardiomyopathy) ([facility]) S/P Septal Myectomy in 2003. Now with LVEF 50% and mod/severe pulm HTN. - HTN (hypertension) - Hyperlipidemia - Morbid obesity with BMI of 40.0-44.9, adult ([facility]) - Presence of combination internal cardiac defibrillator (ICD) and pacemaker - Sleep apnea 2011 not on CPAP, unable to tolerate mask 02/2017 - SVT (supraventricular tachycardia) ([facility]) NSVT and questionable VT in 2003 post op Previous Surgical History PAST SURGICAL HISTORY Procedure Laterality Date - CABG (1) VEIN GRAFT AND ARTERIAL GRAFT - CHOLECYSTECTOMY HX - DIALYSIS ACCESS SYSTEM - HEART SURGERY HX 07/18/2004 Septal myectomy and CABG x2 (DEBORAH-LAD, SVG-PDA). - HYSTERECTOMY HX - IANDD PERIANAL ABSCESS - PACEMAKER with defib - PAST SURGICAL HISTORY OF left breast nodule removed - PAST SURGICAL HISTORY OF skin lesions removed - STENT PLACEMENT coronary Family History FAMILY HISTORY Problem Relation Age of Onset - Hypertension Mother living at age 93, HTN - Heart Failure Mother [place] - Cancer Father age 71, lung cancer - Heart Attack Sister - COPD Brother - Heart Paternal Grandmother - Heart Paternal Grandfather - Heart Sister - Diabetes Sister - Heart Sister - Breast Cancer Sister - Diabetes Sister - Hypertension Brother - Diabetes Brother Social History Social History Marital status: Spouse name: Years of education: Number of children: Social History Main Topics Smoking status: Former Smoker Packs/day: 2.50 Years: 43.00 Types: Cigarettes Start date: 1961 Quit date: 07/07/2004 Smokeless tobacco: Never Used Alcohol use: No Drug use: No Other Topics Concern Caffeine Concern Yes Comment:coffee 1 cup daily Special Diet No Comment:Regular Exercise No Comment:no unable, due to SOB x several months. Social History Narrative Patient and daughter live together. EXAM: BP 108/70 (BP Site: Left Arm, BP Position: Sitting, BP Cuff Size: Large Adult) Pulse 76 Temp 36.2 ?C (97.1 ?F) (Tympanic) Resp 18 General Appearance: Frail appearing, alert, in no acute distress, well-hydrated, well nourished. Arrives to office via wheel chair, and continuous oxygen via [place]. Extremities: Right wrist: bandage wrap removed. There is 1- 2 mm, open area with scant amount bright red blood oozing from surface. Several surrounding dry scabs without surrounding redness or drainage. Skin friable and thin. Bacitracin liberally applied to open area. Covered with non-stick dressing and then covered with folded 3 x 3 guaze and wrapped with COBAN. Right Upper Extremity: antecubital area-no palpable thrill, no bruit over area of fistula. + radial pulse palpated. ASSESSMENT/PLAN: 1. Tear of skin of right wrist, subsequent encounter - ICD9: V58.89, 881.02, ICD10: S61.511D (primary diagnosis) - Area re-dressed as noted above. Bleeding has slowed considerably due to holding Eliquis for procedure later today. Continue to change dressing as needed. Cool compresses to itchy skin. Avoid scratching. 2. Xerosis of skin - ICD9: 706.8, ICD10: L85.3 - As above 3. Chronic anticoagulation - ICD9: V58.61, ICD10: Z79.01 - Stable, bleeding is controlled. Jesi Foster, MSN LOCAL DRIVER.BACKHAUL DRIVER Jesi Foster, MSN LOCAL DRIVER.BACKHAUL DRIVER 09/19/2018 10:36 AM Signed The product used in the office is called COBAN. A non-stick, pressure wrap. Progress Notes ([facility]): Rylan Cash III MD 09/17/2018 11:34 AM Signed SUBJECTIVE: This is a 77 year old female that is here today for leg sores that started 1 wk ago when she was experiencing severe swelling of both lower legs. Over the past week she has had adjustment of her renal dialysis resulting in significant reduction of lower leg edema. However, the leg sores became bigger over the last day or 2 after her daughter gently washed the surface of the left lower leg. She has been applying a triple antibiotic ointment and gauze. The patient does have diabetes with peripheral neuropathy and complains of itching though no pain of the lower legs. PAST MEDICAL HISTORY Diagnosis Date - Arthritis - Atrial fibrillation ([facility]) - CAD (coronary artery disease) stents x9, defibrillator, CABG. Seeing Dr. Cardona - Cardiac defibrillator in place - Cardiomegaly - Carotid artery disease ([facility]) left - Chronic hypoxemic respiratory failure ([facility]) 07/01/2018 - Chronic kidney disease (CKD) stage G3b/A2, moderately decreased glomerular filtration rate (GFR) between 30-44 mL/min/1.73 square meter and albuminuria creatinine ratio between 30-299 mg/g ([facility]) Dr. Martin - COPD (chronic obstructive pulmonary disease) ([facility]) Dr. Cruz - Depression - Diabetes ([facility]) - Diabetic neuropathy ([facility]) - Edema - ESRD (end stage renal disease) on dialysis ([facility]) [facility], Dr. Martin - GERD (gastroesophageal reflux disease) - Gout with hyperuricemia - HH (hiatus hernia) - HOCM (hypertrophic obstructive cardiomyopathy) ([facility]) S/P Septal Myectomy in 2003. Now with LVEF 50% and mod/severe pulm HTN. - HTN (hypertension) - Hyperlipidemia - Morbid obesity with BMI of 40.0-44.9, adult ([facility]) - Presence of combination internal cardiac defibrillator (ICD) and pacemaker - Sleep apnea 2011 not on CPAP, unable to tolerate mask 02/2017 - SVT (supraventricular tachycardia) ([facility]) NSVT and questionable VT in 2003 post op Current Outpatient Prescriptions on File Prior to Visit: carvedilol (COREG) 3.125 mg tablet Take 1 tablet by mouth twice daily with meals. amiodarone (PACERONE) 200 mg tablet Take 1 tablet by mouth once daily. simvastatin (ZOCOR) 40 mg tablet Take 1 tablet by mouth every morning. isosorbide mononitrate ER (IMDUR) 30 mg 24 hr tablet TAKE THREE TABLETS BY MOUTH ONCE DAILY insulin glargine (LANTUS SOLOSTAR U-100 INSULIN) 100 unit/mL (3 mL) inpn Inject 28 Units subcutaneously daily at bedtime. apixaban (ELIQUIS) 5 mg tab(s) Take 1 tablet by mouth twice daily. insulin aspart U-100 (NOVOLOG FLEXPEN U-100 INSULIN) 100 unit/mL inpn Using Sliding Scale: 150-209 1 unit, 210-269 2 units, 270-329 3 units, 330-389 4 units, 390-449 5 units insulin glargine (LANTUS SOLOSTAR U-100 INSULIN) 100 unit/mL (3 mL) inpn Inject 50 Units subcutaneously every morning. bacitracin zinc (ANTIBIOTIC, BACITRACIN ZINC,) 500 unit/gram ointment Apply 1 application to affected area twice daily. polyethylene glycol 3350 (MIRALAX) 17 gram/dose powder Use 1-2 times daily as needed for constipation. pregabalin (LYRICA) 25 mg capsule Take 1 tablet PO daily with an additional 1 tablet PO after dialysis MWF metoclopramide HCl (REGLAN) 5 mg tablet Take 1 tablet by mouth three times daily. pantoprazole DR (PROTONIX) 40 mg tablet Take 1 tablet by mouth once daily. senna (SENNA) 8.6 mg tab Take 8.6 mg by mouth once daily. ondansetron (ZOFRAN) 4 mg tablet Take 4 mg by mouth every 8 hours as needed. ipratropium-albuterol (DUONEB) 0.5 mg-3 mg(2.5 mg base)/3 mL nebu Inhale 3 mL as instructed every 4 hours while awake. And prn for wheezing/shortness of breath. budesonide (PULMICORT) 0.5 mg/2 mL nebulizer solution Use 2 mL via nebulizer once daily. INHALE 2 ML BY NEBULIZER OVER 5-15 MINUTES EVERY 12 HOURS. nystatin (NYSTOP) powder Apply 1 application to affected area three times daily. guaiFENesin-dextromethorphan (ROBITUSSIN DM) 100-10 mg/5 mL syrup Take 5-10 mL by mouth every 6 hours as needed for Cough. nitroglycerin sublingual (NITROQUICK) 0.4 mg SL tablet Dissolve 1 tablet under the tongue every 5 minutes as needed. OXYGEN, HOME THERAPY, Inhale 2.5 L/min as instructed continuous. 3 L/min when leaves home. No current facility-administered medications on file prior to visit. FAMILY HISTORY Problem Relation Age of Onset - Hypertension Mother living at age 93, HTN - Heart Failure Mother [place] - Cancer Father age 71, lung cancer - Heart Attack Sister - COPD Brother - Heart Paternal Grandmother - Heart Paternal Grandfather - Heart Sister - Diabetes Sister - Heart Sister - Breast Cancer Sister - Diabetes Sister - Hypertension Brother - Diabetes Brother .[facility] Social History Substance Use Topics - Smoking status: Former Smoker Packs/day: 2.50 Years: 43.00 Types: Cigarettes Start date: 1961 Quit date: 07/07/2004 - Smokeless tobacco: Never Used - Alcohol use No BP 87/63 Pulse 73 Resp 16 Wt 105.2 kg (232 lb) BMI 35.28 kg/m? . OBJECTIVE: APPEARANCE Well appearing, alert, in no acute distress, well- hydrated, well nourished., Wheelchair and with oxygen EXTREMITIES grade 2/4 nonpitting edema of the lower legs bilaterally though there are skin changes consistent with stasis dermatitis such as skin thickening. There are several superficial ulcers left g[place] involving skin only. Smaller superficial ulcer anterior aspect of the right lower leg. Absent left dorsal pedal pulse with some blue discoloration of left great toe and second toe. No ulcers involving the feet ASSESSMENT: bilateral leg sores diabetes mellitus with ESRD on dialysis itching due to leg sores and ch. renal failure known sulfa allergy PLAN: Triple antibiotic ointment, nonstick bandage, and roll gauze were used to dress the wounds on both lower legs. keep wounds clean and dry apply silvadene and dry sterile dressing with nonstick bandage daily--we discussed stopping silvadene if she develops symptoms of allergy (eg facial swelling, rash) Patient and daughter understood and agreed. hydroxyzine 25mg twice/day as needed for itching same other medications follow up with Dr Kamara in 2 wks--earlier as needed JONATHAN Payan MD, III MD Frank A Cebul, III MD 09/17/2018 11:19 AM Signed PLAN: keep wounds clean and dry apply silvadene and dry sterile dressing with nonstick bandage daily hydroxyzine 25mg twice/day as needed for itching same other medications follow up with Dr Kamara in 2 wks--earlier as needed Rylan Cash III MD PROGRESS Observed: 09/19/2018 Status: COMPLETED Source: [place] 10:23 AM [facility] [place] REPOSITORY O ID: [id number] Author: Jesi Foster Service: (none) Author Type: Nurse Practitioner Type: Progress Notes Filed: 09/19/2018 11:00 AM Note Text: Chief Complaint Patient presents with: Wound Check: right wrist area HPI Luz Baca is a 77 year old female who presents here today for Above Complaints. Brought here by daughter who is present for this visit. Has small skin tear right wrist 2/2 patient picking and scratching dry skin. Daughter describes as small pin point spot that keeps oozing. She is on Eliquis however it has been temporarily held due to eye laser surgery later today, last dose 48 hours ago. Has been using Bacitracin ointment, pressure (15 minutes) without benefti, however it continues to ooze. Has been oozing for over one week. Reports seen 2 days ago for small open sores on both lower legs. Daughter states she is now using Silvadene Cream and areas look much better. Has fistula in same arm for Dialysis, not been used yet for dialysis. Has f/u apt with Vascular Surgeon next month. The ROS is otherwise negative. Past medical history, appointments, medications, allergies reviewed. Patient Allergies ALLERGIES Allergen Reactions - Aspirin Other: See Comments Patient states that she bled out every orifice, sts not allowed to take it at all. Patient states she was bleeding out of nose and mouth after one dose. - Bactrim [Sulfametho* Other: See Comments My throat swells up. - Latex Rash, Itching Itching and welts. No wheezing or shortness of breath. - Penicillins Rash, Itching Tolerated ceftriaxone during 11/2017 admission and cefepime during 12/2017 admission - Tetracycline Rash, GI Upset Emesis and diarrhea. - Atorvastatin Rash - Codeine Other: See Comments Numbness - Dilaudid [Hydromorp* Mental Status Change - Meperidine - Pentazocine - Pioglitazone Unknown - Propoxyphene Current Medications Current Outpatient Prescriptions on File Prior to Visit: silver sulfADIAZINE (SILVADENE,THERMAZENE) 1 % cream Apply 1 application to affected area once daily. hydrOXYzine HCl (ATARAX) 25 mg tablet Take 1 tablet by mouth every 12 hours as needed for Itching/Rash. carvedilol (COREG) 3.125 mg tablet Take 1 tablet by mouth twice daily with meals. amiodarone (PACERONE) 200 mg tablet Take 1 tablet by mouth once daily. simvastatin (ZOCOR) 40 mg tablet Take 1 tablet by mouth every morning. isosorbide mononitrate ER (IMDUR) 30 mg 24 hr tablet TAKE THREE TABLETS BY MOUTH ONCE DAILY insulin glargine (LANTUS SOLOSTAR U-100 INSULIN) 100 unit/mL (3 mL) inpn Inject 28 Units subcutaneously daily at bedtime. apixaban (ELIQUIS) 5 mg tab(s) Take 1 tablet by mouth twice daily. insulin aspart U-100 (NOVOLOG FLEXPEN U-100 INSULIN) 100 unit/mL inpn Using Sliding Scale: 150-209 1 unit, 210-269 2 units, 270- 329 3 units, 330-389 4 units, 390-449 5 units insulin glargine (LANTUS SOLOSTAR U-100 INSULIN) 100 unit/mL (3 mL) inpn Inject 50 Units subcutaneously every morning. bacitracin zinc (ANTIBIOTIC, BACITRACIN ZINC,) 500 unit/gram ointment Apply 1 application to affected area twice daily. polyethylene glycol 3350 (MIRALAX) 17 gram/dose powder Use 1-2 times daily as needed for constipation. pregabalin (LYRICA) 25 mg capsule Take 1 tablet PO daily with an additional 1 tablet PO after dialysis MWF metoclopramide HCl (REGLAN) 5 mg tablet Take 1 tablet by mouth three times daily. pantoprazole DR (PROTONIX) 40 mg tablet Take 1 tablet by mouth once daily. senna (SENNA) 8.6 mg tab Take 8.6 mg by mouth once daily. ondansetron (ZOFRAN) 4 mg tablet Take 4 mg by mouth every 8 hours as needed. ipratropium-albuterol (DUONEB) 0.5 mg-3 mg(2.5 mg base)/3 mL nebu Inhale 3 mL as instructed every 4 hours while awake. And prn for wheezing/shortness of breath. nystatin (NYSTOP) powder Apply 1 application to affected area three times daily. guaiFENesin-dextromethorphan (ROBITUSSIN DM) 100-10 mg/5 mL syrup Take 5-10 mL by mouth every 6 hours as needed for Cough. nitroglycerin sublingual (NITROQUICK) 0.4 mg SL tablet Dissolve 1 tablet under the tongue every 5 minutes as needed. OXYGEN, HOME THERAPY, Inhale 2.5 L/min as instructed continuous. 3 L/min when leaves home. budesonide (PULMICORT) 0.5 mg/2 mL nebulizer solution Use 2 mL via nebulizer once daily. INHALE 2 ML BY NEBULIZER OVER 5-15 MINUTES EVERY 12 HOURS. No current facility-administered medications on file prior to visit. Previous Medical History PAST MEDICAL HISTORY Diagnosis Date - Arthritis - Atrial fibrillation ([facility]) - CAD (coronary artery disease) stents x9, defibrillator, CABG. Seeing Dr. Cardona - Cardiac defibrillator in place - Cardiomegaly - Carotid artery disease ([facility]) left - Chronic hypoxemic respiratory failure ([facility]) 07/01/2018 - Chronic kidney disease (CKD) stage G3b/A2, moderately decreased glomerular filtration rate (GFR) between 30-44 mL/min/1.73 square meter and albuminuria creatinine ratio between 30-299 mg/g ([facility]) Dr. Martin - COPD (chronic obstructive pulmonary disease) ([facility]) Dr. Cruz - Depression - Diabetes ([facility]) - Diabetic neuropathy ([facility]) - Edema - ESRD (end stage renal disease) on dialysis ([facility]) [facility], Dr. Martin - GERD (gastroesophageal reflux disease) - Gout with hyperuricemia - HH (hiatus hernia) - HOCM (hypertrophic obstructive cardiomyopathy) ([facility]) S/P Septal Myectomy in 2003. Now with LVEF 50% and mod/severe pulm HTN. - HTN (hypertension) - Hyperlipidemia - Morbid obesity with BMI of 40.0-44.9, adult ([facility]) - Presence of combination internal cardiac defibrillator (ICD) and pacemaker - Sleep apnea 2011 not on CPAP, unable to tolerate mask 02/2017 - SVT (supraventricular tachycardia) ([facility]) NSVT and questionable VT in 2003 post op Previous Surgical History PAST SURGICAL HISTORY Procedure Laterality Date - CABG (1) VEIN GRAFT AND ARTERIAL GRAFT - CHOLECYSTECTOMY HX - DIALYSIS ACCESS SYSTEM - HEART SURGERY HX 07/18/2004 Septal myectomy and CABG x2 (DEBORAH-LAD, SVG-PDA). - HYSTERECTOMY HX - IANDD PERIANAL ABSCESS - PACEMAKER with defib - PAST SURGICAL HISTORY OF left breast nodule removed - PAST SURGICAL HISTORY OF skin lesions removed - STENT PLACEMENT coronary Family History FAMILY HISTORY Problem Relation Age of Onset - Hypertension Mother living at age 93, HTN - Heart Failure Mother [place] - Cancer Father age 71, lung cancer - Heart Attack Sister - COPD Brother - Heart Paternal Grandmother - Heart Paternal Grandfather - Heart Sister - Diabetes Sister - Heart Sister - Breast Cancer Sister - Diabetes Sister - Hypertension Brother - Diabetes Brother Social History Social History Marital status: Spouse name: Years of education: Number of children: Social History Main Topics Smoking status: Former Smoker Packs/day: 2.50 Years: 43.00 Types: Cigarettes Start date: 1961 Quit date: 07/07/2004 Smokeless tobacco: Never Used Alcohol use: No Drug use: No Other Topics Concern Caffeine Concern Yes Comment:coffee 1 cup daily Special Diet No Comment:Regular Exercise No Comment:no unable, due to SOB x several months. Social History Narrative Patient and daughter live together. EXAM: BP 108/70 (BP Site: Left Arm, BP Position: Sitting, BP Cuff Size: Large Adult) Pulse 76 Temp 36.2 ?C (97.1 ?F) (Tympanic) Resp 18 General Appearance: Frail appearing, alert, in no acute distress, well-hydrated, well nourished. Arrives to office via wheel chair, and continuous oxygen via [place]. Extremities: Right wrist: bandage wrap removed. There is 1- 2 mm, open area with scant amount bright red blood oozing from surface. Several surrounding dry scabs without surrounding redness or drainage. Skin friable and thin. Bacitracin liberally applied to open area. Covered with non-stick dressing and then covered with folded 3 x 3 guaze and wrapped with COBAN. Right Upper Extremity: antecubital area-no palpable thrill, no bruit over area of fistula. + radial pulse palpated. ASSESSMENT/PLAN: 1. Tear of skin of right wrist, subsequent encounter - ICD9: V58.89, 881.02, ICD10: S61.511D (primary diagnosis) - Area re-dressed as noted above. Bleeding has slowed considerably due to holding Eliquis for procedure later today. Continue to change dressing as needed. Cool compresses to itchy skin. Avoid scratching. 2. Xerosis of skin - ICD9: 706.8, ICD10: L85.3 - As above 3. Chronic anticoagulation - ICD9: V58.61, ICD10: Z79.01 - Stable, bleeding is controlled. Jesi Foster, MSN LOCAL DRIVER.BACKHAUL DRIVER CNOV Observed: 09/19/2018 Status: COMPLETED Source: [place] 10:20 AM [facility] REPOSITORY Office Visit (FAMPWS) LUZ BACA ([id number]) 1940 F Date Time Provider Department 09/19/18 10:20 AM JESI FOSTER (MISSILEMAN) FAMPWS During your visit today, we recorded the following information about you: Temperature Pulse Respiration Blood pressure 97.1 degrees 76/minute 18/minute 108/70 Jesi Foster MSN LOCAL DRIVER.ELÍAS 09/19/2018 11:00 AM Signed Chief Complaint Patient presents with: Wound Check: right wrist area HPI Luz Baca is a 77 year old female who presents here today for Above Complaints. Brought here by daughter who is present for this visit. Has small skin tear right wrist 2/2 patient picking and scratching dry skin. Daughter describes as small pin point spot that keeps oozing. She is on Eliquis however it has been temporarily held due to eye laser surgery later today, last dose 48 hours ago. Has been using Bacitracin ointment, pressure (15 minutes) without benefti, however it continues to ooze. Has been oozing for over one week. Reports seen 2 days ago for small open sores on both lower legs. Daughter states she is now using Silvadene Cream and areas look much better. Has fistula in same arm for Dialysis, not been used yet for dialysis. Has f/u apt with Vascular Surgeon next month. The ROS is otherwise negative. Past medical history, appointments, medications, allergies reviewed. Patient Allergies ALLERGIES Allergen Reactions - Aspirin Other: See Comments Patient states that she bled out every orifice, sts not allowed to take it at all. Patient states she was bleeding out of nose and mouth after one dose. - Bactrim [Sulfametho* Other: See Comments My throat swells up. - Latex Rash, Itching Itching and welts. No wheezing or shortness of breath. - Penicillins Rash, Itching Tolerated ceftriaxone during 11/2017 admission and cefepime during 12/2017 admission - Tetracycline Rash, GI Upset Emesis and diarrhea. - Atorvastatin Rash - Codeine Other: See Comments Numbness - Dilaudid [Hydromorp* Mental Status Change - Meperidine - Pentazocine - Pioglitazone Unknown - Propoxyphene Current Medications Current Outpatient Prescriptions on File Prior to Visit: silver sulfADIAZINE (SILVADENE,THERMAZENE) 1 % cream Apply 1 application to affected area once daily. hydrOXYzine HCl (ATARAX) 25 mg tablet Take 1 tablet by mouth every 12 hours as needed for Itching/Rash. carvedilol (COREG) 3.125 mg tablet Take 1 tablet by mouth twice daily with meals. amiodarone (PACERONE) 200 mg tablet Take 1 tablet by mouth once daily. simvastatin (ZOCOR) 40 mg tablet Take 1 tablet by mouth every morning. isosorbide mononitrate ER (IMDUR) 30 mg 24 hr tablet TAKE THREE TABLETS BY MOUTH ONCE DAILY insulin glargine (LANTUS SOLOSTAR U-100 INSULIN) 100 unit/mL (3 mL) inpn Inject 28 Units subcutaneously daily at bedtime. apixaban (ELIQUIS) 5 mg tab(s) Take 1 tablet by mouth twice daily. insulin aspart U-100 (NOVOLOG FLEXPEN U-100 INSULIN) 100 unit/mL inpn Using Sliding Scale: 150-209 1 unit, 210-269 2 units, 270-329 3 units, 330-389 4 units, 390-449 5 units insulin glargine (LANTUS SOLOSTAR U-100 INSULIN) 100 unit/mL (3 mL) inpn Inject 50 Units subcutaneously every morning. bacitracin zinc (ANTIBIOTIC, BACITRACIN ZINC,) 500 unit/gram ointment Apply 1 application to affected area twice daily. polyethylene glycol 3350 (MIRALAX) 17 gram/dose powder Use 1-2 times daily as needed for constipation. pregabalin (LYRICA) 25 mg capsule Take 1 tablet PO daily with an additional 1 tablet PO after dialysis MWF metoclopramide HCl (REGLAN) 5 mg tablet Take 1 tablet by mouth three times daily. pantoprazole DR (PROTONIX) 40 mg tablet Take 1 tablet by mouth once daily. senna (SENNA) 8.6 mg tab Take 8.6 mg by mouth once daily. ondansetron (ZOFRAN) 4 mg tablet Take 4 mg by mouth every 8 hours as needed. ipratropium-albuterol (DUONEB) 0.5 mg-3 mg(2.5 mg base)/3 mL nebu Inhale 3 mL as instructed every 4 hours while awake. And prn for wheezing/shortness of breath. nystatin (NYSTOP) powder Apply 1 application to affected area three times daily. guaiFENesin-dextromethorphan (ROBITUSSIN DM) 100-10 mg/5 mL syrup Take 5-10 mL by mouth every 6 hours as needed for Cough. nitroglycerin sublingual (NITROQUICK) 0.4 mg SL tablet Dissolve 1 tablet under the tongue every 5 minutes as needed. OXYGEN, HOME THERAPY, Inhale 2.5 L/min as instructed continuous. 3 L/min when leaves home. budesonide (PULMICORT) 0.5 mg/2 mL nebulizer solution Use 2 mL via nebulizer once daily. INHALE 2 ML BY NEBULIZER OVER 5-15 MINUTES EVERY 12 HOURS. No current facility-administered medications on file prior to visit. Previous Medical History PAST MEDICAL HISTORY Diagnosis Date - Arthritis - Atrial fibrillation ([facility]) - CAD (coronary artery disease) stents x9, defibrillator, CABG. Seeing Dr. Cardona - Cardiac defibrillator in place - Cardiomegaly - Carotid artery disease ([facility]CC) left - Chronic hypoxemic respiratory failure ([facility]) 07/01/2018 - Chronic kidney disease (CKD) stage G3b/A2, moderately decreased glomerular filtration rate (GFR) between 30-44 mL/min/1.73 square meter and albuminuria creatinine ratio between 30-299 mg/g ([facility]) Dr. Martin - COPD (chronic obstructive pulmonary disease) ([facility]) Dr. Cruz - Depression - Diabetes ([facility]) - Diabetic neuropathy ([facility]) - Edema - ESRD (end stage renal disease) on dialysis ([facility]) [facility], Dr. Martin - GERD (gastroesophageal reflux disease) - Gout with hyperuricemia - HH (hiatus hernia) - HOCM (hypertrophic obstructive cardiomyopathy) ([facility]) S/P Septal Myectomy in 2003. Now with LVEF 50% and mod/severe pulm HTN. - HTN (hypertension) - Hyperlipidemia - Morbid obesity with BMI of 40.0-44.9, adult ([facility]) - Presence of combination internal cardiac defibrillator (ICD) and pacemaker - Sleep apnea 2011 not on CPAP, unable to tolerate mask 02/2017 - SVT (supraventricular tachycardia) ([facility]) NSVT and questionable VT in 2003 post op Previous Surgical History PAST SURGICAL HISTORY Procedure Laterality Date - CABG (1) VEIN GRAFT AND ARTERIAL GRAFT - CHOLECYSTECTOMY HX - DIALYSIS ACCESS SYSTEM - HEART SURGERY HX 07/18/2004 Septal myectomy and CABG x2 (DEBORAH-LAD, SVG-PDA). - HYSTERECTOMY HX - IANDD PERIANAL ABSCESS - PACEMAKER with defib - PAST SURGICAL HISTORY OF left breast nodule removed - PAST SURGICAL HISTORY OF skin lesions removed - STENT PLACEMENT coronary Family History FAMILY HISTORY Problem Relation Age of Onset - Hypertension Mother living at age 93, HTN - Heart Failure Mother NE - Cancer Father age 71, lung cancer - Heart Attack Sister - COPD Brother - Heart Paternal Grandmother - Heart Paternal Grandfather - Heart Sister - Diabetes Sister - Heart Sister - Breast Cancer Sister - Diabetes Sister - Hypertension Brother - Diabetes Brother Social History Social History Marital status: Spouse name: Years of education: Number of children: Social History Main Topics Smoking status: Former Smoker Packs/day: 2.50 Years: 43.00 Types: Cigarettes Start date: 1961 Quit date: 07/07/2004 Smokeless tobacco: Never Used Alcohol use: No Drug use: No Other Topics Concern Caffeine Concern Yes Comment:coffee 1 cup daily Special Diet No Comment:Regular Exercise No Comment:no unable, due to SOB x several months. Social History Narrative Patient and daughter live together. EXAM: BP 108/70 (BP Site: Left Arm, BP Position: Sitting, BP Cuff Size: Large Adult) Pulse 76 Temp 36.2 ?C (97.1 ?F) (Tympanic) Resp 18 General Appearance: Frail appearing, alert, in no acute distress, well-hydrated, well nourished. Arrives to office via wheel chair, and continuous oxygen via [place]. Extremities: Right wrist: bandage wrap removed. There is 1- 2 mm, open area with scant amount bright red blood oozing from surface. Several surrounding dry scabs without surrounding redness or drainage. Skin friable and thin. Bacitracin liberally applied to open area. Covered with non- stick dressing and then covered with folded 3 x 3 guaze and wrapped with COBAN. Right Upper Extremity: antecubital area-no palpable thrill, no bruit over area of fistula. + radial pulse palpated. ASSESSMENT/PLAN: 1. Tear of skin of right wrist, subsequent encounter - ICD9: V58.89, 881.02, ICD10: S61.511D (primary diagnosis) - Area re-dressed as noted above. Bleeding has slowed considerably due to holding Eliquis for procedure later today. Continue to change dressing as needed. Cool compresses to itchy skin. Avoid scratching. 2. Xerosis of skin - ICD9: 706.8, ICD10: L85.3 - As above 3. Chronic anticoagulation - ICD9: V58.61, ICD10: Z79.01 - Stable, bleeding is controlled. Jesi Foster, MSN LOCAL DRIVER.BACKHAUL DRIVER Jesi Foster, MSN LOCAL DRIVER.BACKHAUL DRIVER 09/19/2018 10:36 AM Signed The product used in the office is called COBAN. A non-stick, pressure wrap. Referring Provider: JAMESON KAMARA) [[id number]] Allergies As of Date: 09/19/2018 Noted Allergy Reaction ASPIRIN 01/20/2018 14 - Other: See Comments Comments: Patient states that she bled out every orifice, sts not allowed to take it at all. Patient states she was bleeding out of nose and mouth after one dose. BACTRIM (SULFAMETHOXAZOLE-TRIMETH*05/17/2017 14 - Other: See Comments Comments: My throat swells up. LATEX 05/17/2017 2 - Rash 9 - Itching Comments: Itching and welts. No wheezing or shortness of breath. PENICILLINS 07/14/2004 2 - Rash 9 - Itching Comments: Tolerated ceftriaxone during 11/2017 admission and cefepime during 12/2017 admission TETRACYCLINE 09/29/2010 2 - Rash 8 - GI Upset Comments: Emesis and diarrhea. ATORVASTATIN 05/17/2017 2 - Rash CODEINE 05/17/2017 14 - Other: See Comments Comments: Numbness DILAUDID (HYDROMORPHONE (BULK)) 05/17/2017 1 - Mental Status Change MEPERIDINE 07/14/2004 PENTAZOCINE 07/14/2004 PIOGLITAZONE 05/17/2017 16 - Unknown PROPOXYPHENE 07/14/2004 Date Reviewed: 09/19/2018 Reviewed by: Sangeeta Kitchen LPN - Fully Assessed Reason for Visit: Wound Check [133] Cmt: right wrist area Primary Visit Diagnosis:Tear of skin of right wrist, subsequent encounter [G15.835I] Other Visit Diagnoses:Xerosis of skin [L85.3] Chronic anticoagulation [Z79.01] Prescriptions as of 09/19/2018 Sig: SILVER SULFADIAZINE 1 % TOPIC* Apply 1 application to affect* HYDROXYZINE HCL 25 MG TABLET Take 1 tablet by mouth every * CARVEDILOL 3.125 MG TABLET Take 1 tablet by mouth twice * AMIODARONE 200 MG TABLET Take 1 tablet by mouth once d* SIMVASTATIN 40 MG TABLET Take 1 tablet by mouth every * ISOSORBIDE MONONITRATE ER 30 * TAKE THREE TABLETS BY MOUTH O* INSULIN GLARGINE (U-100) 100 * Inject 28 Units subcutaneousl* APIXABAN 5 MG TABLET Take 1 tablet by mouth twice * INSULIN ASPART U-100 100 UNI* Using Sliding Scale: 150-209* INSULIN GLARGINE (U-100) 100 * Inject 50 Units subcutaneousl* BACITRACIN ZINC 500 UNIT/GRAM* Apply 1 application to affect* POLYETHYLENE GLYCOL 3350 17 G* Use 1-2 times daily as needed* PREGABALIN 25 MG CAPSULE Take 1 tablet PO daily with a* METOCLOPRAMIDE 5 MG TABLET Take 1 tablet by mouth three * PANTOPRAZOLE 40 MG TABLET,DEL* Take 1 tablet by mouth once d* SENNOSIDES 8.6 MG TABLET Take 8.6 mg by mouth once carlos* ONDANSETRON HCL 4 MG TABLET Take 4 mg by mouth every 8 ho* IPRATROPIUM-ALBUTEROL 0.5 MG-* Inhale 3 mL as instructed leanne* NYSTATIN 100,000 UNIT/GRAM TO* Apply 1 application to affect* DEXTROMETHORPHAN-GUAIFENESIN * Take 5-10 mL by mouth every 6* NITROGLYCERIN 0.4 MG SUBLINGU* Dissolve 1 tablet under the t* OXYGEN (HOME THERAPY) Inhale 2.5 L/min as instructe* BUDESONIDE 0.5 MG/2 ML SUSPEN* Use 2 mL via nebulizer once d* Problem List As Of Date 09/19/2018 Noted Resolved HOCM (hypertrophic obstructive cardiomyopathy) * 01/23/2018 More... SVT (supraventricular tachycardia) (HCC) [I47.1] 01/21/2018 More... Carotid artery disease (HCC) [I77.9] 01/22/2018 CAD (coronary artery disease) [I25.10] More... Hypertension [I10] More... Hyperlipidemia [E78.5] Pneumonia [J18.9] 10/27/2017 More... COPD (chronic obstructive pulmonary disease) (H* More... Sleep apnea [G47.30] More... HH (hiatus hernia) [K44.9] 01/21/2018 GERD (gastroesophageal reflux disease) [K21.9] More... More... Arthritis [M19.90] Numbness and tingling of right leg [R20.0, R20.* 01/21/2018 Depression [F32.9] Atrial fibrillation (HCC) [I48.91] INVALID FOR* More... Controlled type 2 diabetes mellitus with chroni*INVALID FOR* More... More... More... Heart failure, systolic, acute (HCC) [I50.21] INVALID FOR*01/21/2018 More... Obesity [E66.09] INVALID FOR* More... Gout [M10.9] Pacemaker [Z95.0] More... Chronic combined systolic and diastolic CHF (co*INVALID FOR* More... Elevated troponin [R74.8] INVALID FOR*01/22/2018 More... Pulmonary hypertension (HCC) [I27.20] INVALID FOR* Oral thrush [B37.0] INVALID FOR*01/21/2018 Hyponatremia [E87.1] INVALID FOR* More... Hyperkalemia [E87.5] INVALID FOR*01/22/2018 Chest pain in adult [R07.9] INVALID FOR*02/12/2018 More... Acute renal failure superimposed on stage 3 chr*INVALID FOR* More... Obesity, Class II, BMI 35-39.9 [E66.9] INVALID FOR* ESRD on dialysis (HCC) [N18.6, Z99.2] INVALID FOR* More... Chronic hypoxemic respiratory failure (HCC) [J9*INVALID FOR* Bilateral leg ulcer, limited to breakdown of sk*INVALID FOR* Other instructions from your clinician: The product used in the office is called COBAN. A non- stick, pressure wrap. Follow-up and Disposition History Recorded Encounter Status:Closed by JESI FOSTER CNP on 09/19/18 [place] Observed: 09/17/2018 Status: COMPLETED Source: [place] 11:00 AM [facility] REPOSITORY Office Visit (FAMPWS) LUZ BACA ([id number]) 1940 F Date Time Provider Department 09/17/18 11:00 AM RYLAN CASH III During your visit today, we recorded the following information about you: Pulse Respiration Blood pressure Weight 73/minute 16/minute 87/63 105.2 kg Rylan Cash III MD 09/17/2018 11:34 AM Signed SUBJECTIVE: This is a 77 year old female that is here today for leg sores that started 1 wk ago when she was experiencing severe swelling of both lower legs. Over the past week she has had adjustment of her renal dialysis resulting in significant reduction of lower leg edema. However, the leg sores became bigger over the last day or 2 after her daughter gently washed the surface of the left lower leg. She has been applying a triple antibiotic ointment and gauze. The patient does have diabetes with peripheral neuropathy and complains of itching though no pain of the lower legs. PAST MEDICAL HISTORY Diagnosis Date - Arthritis - Atrial fibrillation ([facility]) - CAD (coronary artery disease) stents x9, defibrillator, CABG. Seeing Dr. Cardona - Cardiac defibrillator in place - Cardiomegaly - Carotid artery disease (HCC) left - Chronic hypoxemic respiratory failure ([facility]) 07/01/2018 - Chronic kidney disease (CKD) stage G3b/A2, moderately decreased glomerular filtration rate (GFR) between 30-44 mL/min/1.73 square meter and albuminuria creatinine ratio between 30-299 mg/g ([facility]) Dr. Martin - COPD (chronic obstructive pulmonary disease) ([facility]) Dr. Cruz - Depression - Diabetes ([facility]) - Diabetic neuropathy ([facility]) - Edema - ESRD (end stage renal disease) on dialysis ([facility]) [facility], Dr. Martin - GERD (gastroesophageal reflux disease) - Gout with hyperuricemia - HH (hiatus hernia) - HOCM (hypertrophic obstructive cardiomyopathy) ([facility]) S/P Septal Myectomy in 2003. Now with LVEF 50% and mod/severe pulm HTN. - HTN (hypertension) - Hyperlipidemia - Morbid obesity with BMI of 40.0-44.9, adult ([facility]) - Presence of combination internal cardiac defibrillator (ICD) and pacemaker - Sleep apnea 2011 not on CPAP, unable to tolerate mask 02/2017 - SVT (supraventricular tachycardia) ([facility]) NSVT and questionable VT in 2003 post op Current Outpatient Prescriptions on File Prior to Visit: carvedilol (COREG) 3.125 mg tablet Take 1 tablet by mouth twice daily with meals. amiodarone (PACERONE) 200 mg tablet Take 1 tablet by mouth once daily. simvastatin (ZOCOR) 40 mg tablet Take 1 tablet by mouth every morning. isosorbide mononitrate ER (IMDUR) 30 mg 24 hr tablet TAKE THREE TABLETS BY MOUTH ONCE DAILY insulin glargine (LANTUS SOLOSTAR U-100 INSULIN) 100 unit/mL (3 mL) inpn Inject 28 Units subcutaneously daily at bedtime. apixaban (ELIQUIS) 5 mg tab(s) Take 1 tablet by mouth twice daily. insulin aspart U-100 (NOVOLOG FLEXPEN U-100 INSULIN) 100 unit/mL inpn Using Sliding Scale: 150-209 1 unit, 210-269 2 units, 270-329 3 units, 330-389 4 units, 390-449 5 units insulin glargine (LANTUS SOLOSTAR U-100 INSULIN) 100 unit/mL (3 mL) inpn Inject 50 Units subcutaneously every morning. bacitracin zinc (ANTIBIOTIC, BACITRACIN ZINC,) 500 unit/gram ointment Apply 1 application to affected area twice daily. polyethylene glycol 3350 (MIRALAX) 17 gram/dose powder Use 1-2 times daily as needed for constipation. pregabalin (LYRICA) 25 mg capsule Take 1 tablet PO daily with an additional 1 tablet PO after dialysis [facility] metoclopramide HCl (REGLAN) 5 mg tablet Take 1 tablet by mouth three times daily. pantoprazole DR (PROTONIX) 40 mg tablet Take 1 tablet by mouth once daily. senna (SENNA) 8.6 mg tab Take 8.6 mg by mouth once daily. ondansetron (ZOFRAN) 4 mg tablet Take 4 mg by mouth every 8 hours as needed. ipratropium-albuterol (DUONEB) 0.5 mg-3 mg(2.5 mg base)/3 mL nebu Inhale 3 mL as instructed every 4 hours while awake. And prn for wheezing/shortness of breath. budesonide (PULMICORT) 0.5 mg/2 mL nebulizer solution Use 2 mL via nebulizer once daily. INHALE 2 ML BY NEBULIZER OVER 5-15 MINUTES EVERY 12 HOURS. nystatin (NYSTOP) powder Apply 1 application to affected area three times daily. guaiFENesin-dextromethorphan (ROBITUSSIN DM) 100-10 mg/5 mL syrup Take 5-10 mL by mouth every 6 hours as needed for Cough. nitroglycerin sublingual (NITROQUICK) 0.4 mg SL tablet Dissolve 1 tablet under the tongue every 5 minutes as needed. OXYGEN, HOME THERAPY, Inhale 2.5 L/min as instructed continuous. 3 L/min when leaves home. No current facility-administered medications on file prior to visit. FAMILY HISTORY Problem Relation Age of Onset - Hypertension Mother living at age 93, HTN - Heart Failure Mother NE - Cancer Father age 71, lung cancer - Heart Attack Sister - COPD Brother - Heart Paternal Grandmother - Heart Paternal Grandfather - Heart Sister - Diabetes Sister - Heart Sister - Breast Cancer Sister - Diabetes Sister - Hypertension Brother - Diabetes Brother .[facility] Social History Substance Use Topics - Smoking status: Former Smoker Packs/day: 2.50 Years: 43.00 Types: Cigarettes Start date: 1961 Quit date: 07/07/2004 - Smokeless tobacco: Never Used - Alcohol use No BP 87/63 Pulse 73 Resp 16 Wt 105.2 kg (232 lb) BMI 35.28 kg/m? . OBJECTIVE: APPEARANCE Well appearing, alert, in no acute distress, well- hydrated, well nourished., Wheelchair and with oxygen EXTREMITIES grade 2/4 nonpitting edema of the lower legs bilaterally though there are skin changes consistent with stasis dermatitis such as skin thickening. There are several superficial ulcers left guthrie involving skin only. Smaller superficial ulcer anterior aspect of the right lower leg. Absent left dorsal pedal pulse with some blue discoloration of left great toe and second toe. No ulcers involving the feet ASSESSMENT: bilateral leg sores diabetes mellitus with ESRD on dialysis itching due to leg sores and ch. renal failure known sulfa allergy PLAN: Triple antibiotic ointment, nonstick bandage, and roll gauze were used to dress the wounds on both lower legs. keep wounds clean and dry apply silvadene and dry sterile dressing with nonstick bandage daily--we discussed stopping silvadene if she develops symptoms of allergy (eg facial swelling, rash) Patient and daughter understood and agreed. hydroxyzine 25mg twice/day as needed for itching same other medications follow up with Dr Kamara in 2 wks--earlier as needed JONATHAN Payan MD, III MD Frank A Cebul, III MD 09/17/2018 11:19 AM Signed PLAN: keep wounds clean and dry apply silvadene and dry sterile dressing with nonstick bandage daily hydroxyzine 25mg twice/day as needed for itching same other medications follow up with Dr Kamara in 2 wks--earlier as needed Rylan Cash III MD Referring Provider: SELF [[id number]] Allergies As of Date: 09/17/2018 Noted Allergy Reaction ASPIRIN 01/20/2018 14 - Other: See Comments Comments: Patient states that she bled out every orifice, sts not allowed to take it at all. Patient states she was bleeding out of nose and mouth after one dose. BACTRIM (SULFAMETHOXAZOLE-TRIMETH*05/17/2017 14 - Other: See Comments Comments: My throat swells up. LATEX 05/17/2017 2 - Rash 9 - Itching Comments: Itching and welts. No wheezing or shortness of breath. PENICILLINS 07/14/2004 2 - Rash 9 - Itching Comments: Tolerated ceftriaxone during 11/2017 admission and cefepime during 12/2017 admission TETRACYCLINE 09/29/2010 2 - Rash 8 - GI Upset Comments: Emesis and diarrhea. ATORVASTATIN 05/17/2017 2 - Rash CODEINE 05/17/2017 14 - Other: See Comments Comments: Numbness DILAUDID (HYDROMORPHONE (BULK)) 05/17/2017 1 - Mental Status Change MEPERIDINE 07/14/2004 PENTAZOCINE 07/14/2004 PIOGLITAZONE 05/17/2017 16 - Unknown PROPOXYPHENE 07/14/2004 Date Reviewed: 09/17/2018 Reviewed by: Tiffani ([facility]) IDANIA Brothers - Fully Assessed Reason for Visit: Lower leg edema [Other] Cmt: Left leg Primary Visit Diagnosis:Bilateral leg ulcer, limited to breakdown of skin ([facility]) [L97.911, L97.921] Other Visit Diagnoses:ESRD on dialysis ([facility]) [N18.6, Z99.2] Controlled type 2 diabetes mellitus with chronic kidney disease on chronic dialysis, with long-term current use of insulin ([facility]) [E11.22, N18.6, Z79.4, Z99.2] Order(s):silver sulfADIAZINE (SILVADENE,THERMAZENE) 1 % creamApply 1 application to affected area once daily.Disp: 25 gRfl: 1 hydrOXYzine HCl (ATARAX) 25 mg tabletTake 1 tablet by mouth every 12 hours as needed for Itching/Rash.Disp: 30 tabletRfl: 0 Prescriptions as of 09/17/2018 Sig: CARVEDILOL 3.125 MG TABLET Take 1 tablet by mouth twice * AMIODARONE 200 MG TABLET Take 1 tablet by mouth once d* SIMVASTATIN 40 MG TABLET Take 1 tablet by mouth every * ISOSORBIDE MONONITRATE ER 30 * TAKE THREE TABLETS BY MOUTH O* INSULIN GLARGINE (U-100) 100 * Inject 28 Units subcutaneousl* APIXABAN 5 MG TABLET Take 1 tablet by mouth twice * INSULIN ASPART U-100 100 UNI* Using Sliding Scale: 150-209* INSULIN GLARGINE (U-100) 100 * Inject 50 Units subcutaneousl* BACITRACIN ZINC 500 UNIT/GRAM* Apply 1 application to affect* POLYETHYLENE GLYCOL 3350 17 G* Use 1-2 times daily as needed* PREGABALIN 25 MG CAPSULE Take 1 tablet PO daily with a* METOCLOPRAMIDE 5 MG TABLET Take 1 tablet by mouth three * PANTOPRAZOLE 40 MG TABLET,DEL* Take 1 tablet by mouth once d* SENNOSIDES 8.6 MG TABLET Take 8.6 mg by mouth once carlos* ONDANSETRON HCL 4 MG TABLET Take 4 mg by mouth every 8 ho* IPRATROPIUM-ALBUTEROL 0.5 MG-* Inhale 3 mL as instructed leanne* BUDESONIDE 0.5 MG/2 ML SUSPEN* Use 2 mL via nebulizer once d* NYSTATIN 100,000 UNIT/GRAM TO* Apply 1 application to affect* DEXTROMETHORPHAN-GUAIFENESIN * Take 5-10 mL by mouth every 6* NITROGLYCERIN 0.4 MG SUBLINGU* Dissolve 1 tablet under the t* OXYGEN (HOME THERAPY) Inhale 2.5 L/min as instructe* SILVER SULFADIAZINE 1 % TOPIC* Apply 1 application to affect* HYDROXYZINE HCL 25 MG TABLET Take 1 tablet by mouth every * Problem List As Of Date 09/17/2018 Noted Resolved HOCM (hypertrophic obstructive cardiomyopathy) * 01/23/2018 More... SVT (supraventricular tachycardia) (HCC) [I47.1] 01/21/2018 More... Carotid artery disease (HCC) [I77.9] 01/22/2018 CAD (coronary artery disease) [I25.10] More... Hypertension [I10] More... Hyperlipidemia [E78.5] Pneumonia [J18.9] 10/27/2017 More... COPD (chronic obstructive pulmonary disease) (H* More... Sleep apnea [G47.30] More... HH (hiatus hernia) [K44.9] 01/21/2018 GERD (gastroesophageal reflux disease) [K21.9] More... More... Arthritis [M19.90] Numbness and tingling of right leg [R20.0, R20.* 01/21/2018 Depression [F32.9] Atrial fibrillation (HCC) [I48.91] INVALID FOR* More... Controlled type 2 diabetes mellitus with chroni*INVALID FOR* More... More... More... Heart failure, systolic, acute (HCC) [I50.21] INVALID FOR*01/21/2018 More... Obesity [E66.09] INVALID FOR* More... Gout [M10.9] Pacemaker [Z95.0] More... Chronic combined systolic and diastolic CHF (co*INVALID FOR* More... Elevated troponin [R74.8] INVALID FOR*01/22/2018 More... Pulmonary hypertension (HCC) [I27.20] INVALID FOR* Oral thrush [B37.0] INVALID FOR*01/21/2018 Hyponatremia [E87.1] INVALID FOR* More... Hyperkalemia [E87.5] INVALID FOR*01/22/2018 Chest pain in adult [R07.9] INVALID FOR*02/12/2018 More... Acute renal failure superimposed on stage 3 chr*INVALID FOR* More... Obesity, Class II, BMI 35-39.9 [E66.9] INVALID FOR* ESRD on dialysis (HCC) [N18.6, Z99.2] INVALID FOR* More... Chronic hypoxemic respiratory failure (HCC) [J9*INVALID FOR* Bilateral leg ulcer, limited to breakdown of sk*INVALID FOR* Other instructions from your clinician: PLAN: keep wounds clean and dry apply silvadene and dry sterile dressing with nonstick bandage daily hydroxyzine 25mg twice/day as needed for itching same other medications follow up with Dr Kamara in 2 wks--earlier as needed Rylan Cash III MD Prescriptions ordered this encounter Disp Refills Start End SILVER SULFADIAZINE 1 % TOPICAL CREAM 25 g 1 09/17/2018 Class: In Office Route: TOPICAL Sig: Apply 1 application to affected area once daily. HYDROXYZINE HCL 25 MG TABLET 30 t* 0 09/17/2018 Route: ORAL Sig: Take 1 tablet by mouth every 12 hours as needed for Itching/Rash. Encounter Status:Closed by RYLAN CASH III, MD on 09/17/18 PROGRESS Observed: 09/17/2018 Status: COMPLETED Source: [place] 10:55 AM [facility] REPOSITORY HNO ID: [id number] Author: Rylan Cash III Service: (none) Author Type: Physician Type: Progress Notes Filed: 09/17/2018 11:34 AM Note Text: SUBJECTIVE: This is a 77 year old female that is here today for leg sores that started 1 wk ago when she was experiencing severe swelling of both lower legs. Over the past week she has had adjustment of her renal dialysis resulting in significant reduction of lower leg edema. However, the leg sores became bigger over the last day or 2 after her daughter gently washed the surface of the left lower leg. She has been applying a triple antibiotic ointment and gauze. The patient does have diabetes with peripheral neuropathy and complains of itching though no pain of the lower legs. PAST MEDICAL HISTORY Diagnosis Date - Arthritis - Atrial fibrillation ([facility]) - CAD (coronary artery disease) stents x9, defibrillator, CABG. Seeing Dr. Cardona - Cardiac defibrillator in place - Cardiomegaly - Carotid artery disease ([facility]) left - Chronic hypoxemic respiratory failure ([facility]) 07/01/2018 - Chronic kidney disease (CKD) stage G3b/A2, moderately decreased glomerular filtration rate (GFR) between 30-44 mL/min/1.73 square meter and albuminuria creatinine ratio between 30-299 mg/g ([facility]) Dr. Martin - COPD (chronic obstructive pulmonary disease) ([facility]) Dr. Cruz - Depression - Diabetes ([facility]) - Diabetic neuropathy ([facility]) - Edema - ESRD (end stage renal disease) on dialysis ([facility]) [facility], Dr. Martin - GERD (gastroesophageal reflux disease) - Gout with hyperuricemia - HH (hiatus hernia) - HOCM (hypertrophic obstructive cardiomyopathy) ([facility]) S/P Septal Myectomy in 2003. Now with LVEF 50% and mod/severe pulm HTN. - HTN (hypertension) - Hyperlipidemia - Morbid obesity with BMI of 40.0-44.9, adult ([facility]) - Presence of combination internal cardiac defibrillator (ICD) and pacemaker - Sleep apnea 2011 not on CPAP, unable to tolerate mask 02/2017 - SVT (supraventricular tachycardia) ([facility]) NSVT and questionable VT in 2003 post op Current Outpatient Prescriptions on File Prior to Visit: carvedilol (COREG) 3.125 mg tablet Take 1 tablet by mouth twice daily with meals. amiodarone (PACERONE) 200 mg tablet Take 1 tablet by mouth once daily. simvastatin (ZOCOR) 40 mg tablet Take 1 tablet by mouth every morning. isosorbide mononitrate ER (IMDUR) 30 mg 24 hr tablet TAKE THREE TABLETS BY MOUTH ONCE DAILY insulin glargine (LANTUS SOLOSTAR U-100 INSULIN) 100 unit/mL (3 mL) inpn Inject 28 Units subcutaneously daily at bedtime. apixaban (ELIQUIS) 5 mg tab(s) Take 1 tablet by mouth twice daily. insulin aspart U-100 (NOVOLOG FLEXPEN U-100 INSULIN) 100 unit/mL inpn Using Sliding Scale: 150-209 1 unit, 210-269 2 units, 270- 329 3 units, 330-389 4 units, 390-449 5 units insulin glargine (LANTUS SOLOSTAR U-100 INSULIN) 100 unit/mL (3 mL) inpn Inject 50 Units subcutaneously every morning. bacitracin zinc (ANTIBIOTIC, BACITRACIN ZINC,) 500 unit/gram ointment Apply 1 application to affected area twice daily. polyethylene glycol 3350 (MIRALAX) 17 gram/dose powder Use 1-2 times daily as needed for constipation. pregabalin (LYRICA) 25 mg capsule Take 1 tablet PO daily with an additional 1 tablet PO after dialysis MWF metoclopramide HCl (REGLAN) 5 mg tablet Take 1 tablet by mouth three times daily. pantoprazole DR (PROTONIX) 40 mg tablet Take 1 tablet by mouth once daily. senna (SENNA) 8.6 mg tab Take 8.6 mg by mouth once daily. ondansetron (ZOFRAN) 4 mg tablet Take 4 mg by mouth every 8 hours as needed. ipratropium-albuterol (DUONEB) 0.5 mg-3 mg(2.5 mg base)/3 mL nebu Inhale 3 mL as instructed every 4 hours while awake. And prn for wheezing/shortness of breath. budesonide (PULMICORT) 0.5 mg/2 mL nebulizer solution Use 2 mL via nebulizer once daily. INHALE 2 ML BY NEBULIZER OVER 5-15 MINUTES EVERY 12 HOURS. nystatin (NYSTOP) powder Apply 1 application to affected area three times daily. guaiFENesin-dextromethorphan (ROBITUSSIN DM) 100-10 mg/5 mL syrup Take 5-10 mL by mouth every 6 hours as needed for Cough. nitroglycerin sublingual (NITROQUICK) 0.4 mg SL tablet Dissolve 1 tablet under the tongue every 5 minutes as needed. OXYGEN, HOME THERAPY, Inhale 2.5 L/min as instructed continuous. 3 L/min when leaves home. No current facility-administered medications on file prior to visit. FAMILY HISTORY Problem Relation Age of Onset - Hypertension Mother living at age 93, HTN - Heart Failure Mother NE - Cancer Father age 71, lung cancer - Heart Attack Sister - COPD Brother - Heart Paternal Grandmother - Heart Paternal Grandfather - Heart Sister - Diabetes Sister - Heart Sister - Breast Cancer Sister - Diabetes Sister - Hypertension Brother - Diabetes Brother .[facility] Social History Substance Use Topics - Smoking status: Former Smoker Packs/day: 2.50 Years: 43.00 Types: Cigarettes Start date: 1961 Quit date: 07/07/2004 - Smokeless tobacco: Never Used - Alcohol use No BP 87/63 Pulse 73 Resp 16 Wt 105.2 kg (232 lb) BMI 35.28 kg/m? . OBJECTIVE: APPEARANCE Well appearing, alert, in no acute distress, well-hydrated, well nourished., Wheelchair and with oxygen EXTREMITIES grade 2/4 nonpitting edema of the lower legs bilaterally though there are skin changes consistent with stasis dermatitis such as skin thickening. There are several superficial ulcers left guthrie involving skin only. Smaller superficial ulcer anterior aspect of the right lower leg. Absent left dorsal pedal pulse with some blue discoloration of left great toe and second toe. No ulcers involving the feet ASSESSMENT: bilateral leg sores diabetes mellitus with ESRD on dialysis itching due to leg sores and ch. renal failure known sulfa allergy PLAN: Triple antibiotic ointment, nonstick bandage, and roll gauze were used to dress the wounds on both lower legs. keep wounds clean and dry apply silvadene and dry sterile dressing with nonstick bandage daily--we discussed stopping silvadene if she develops symptoms of allergy (eg facial swelling, rash) Patient and daughter understood and agreed. hydroxyzine 25mg twice/day as needed for itching same other medications follow up with Dr Kamara in 2 wks--earlier as needed JONTAHAN Payan MD, III MD PROGRESS Observed: 09/06/2018 Status: COMPLETED Source: [place] 5:16 PM [facility] REPOSITORY O ID: [id number] Author: eRmi (Rn) Brent Service: (none) Author Type: Registered Nurse Type: Progress Notes Filed: 09/06/2018 5:18 PM Note Text: PRIMARY CARE COORDINATION QUICK NOTE Provider Action/FYI FYI Patient identified by name and date . TC to [facility] [place], informed the night before dialysis (Sun, Tues and Thurs) pt is to take Lantus 18 units The other nights, (M-W-F-Sat) pt is to take 28 units Lantus. Verbalized understanding by teachback. Remi Kennedy RN September 06, 2018 5:18 PM PROGRESS Observed: 09/06/2018 Status: COMPLETED Source: [place] 4:26 PM [facility] REPOSITORY HNO ID: [id number] Author: Jameson Adams) Koffi Service: (none) Author Type: Physician Type: Progress Notes Filed: 09/06/2018 4:27 PM Note Text: Noted low sugar symptoms with readings in the 90's to 80s. Decrease lantus to 18 units prior to dialysis and to 28 units at bedtime due to readings in the 60s with supper. PROGRESS Observed: 09/06/2018 Status: COMPLETED Source: [place] 3:48 PM [facility] REPOSITORY HNO ID: [id number] Author: Remi Briseno) Brent Service: (none) Author Type: Registered Nurse Type: Progress Notes Filed: 09/06/2018 3:56 PM Note Text: PRIMARY CARE COORDINATION FOLLOW-UP NOTE Provider Action/FYI States she didn't decrease bedtime Lantus to 32 units (from 36 units) until Sun, 09/04 Taking Lantus 20 units at HS night before dialysis States her BS bottomed out at dialysis twice this week. One was in the 90's and one 82. Informed pt those aren't low, states she felt horrible and broke out in sweat from head to toe When BS were in 60's had same symptoms, very sweaty and shaky. Patient identified by name and date of . YES Spoke to patient Summary: Luz Baca is a 77 year old female who reports glucose readings as noted. DATE 09/06 09/05 09/04 09/03 09/02 Fasting 87 171 82 116 262 Noon 102 132 134 103 114 Supper 67 68 Any low blood sugars during this period of reporting Yes Patient's diabetes medications as follows: insulin glargine (LANTUS SOLOSTAR U-100 INSULIN) Inject 50 Units subcutaneously every morning. insulin glargine (LANTUS SOLOSTAR U-100 INSULIN) Inject 32 Units subcutaneously daily at bedtime. insulin aspart U-100 (NOVOLOG FLEXPEN U-100 INSULIN) Sliding Scale: 150-209 1 unit, 210-269 2 units, 270-329 3 units, 330-389 4 units, 390-449 Watermelon Inspector plan for next outreach: Will follow up 2 weeks Signature Remi Kennedy RN September 06, 2018 LUDA Observed: 09/06/2018 Status: COMPLETED Source: [place] 12:00 AM [facility] REPOSITORY Patient Outreach (FAMPWS) BACALUZ ZHONG ([id number]) 1940 F Date Time Provider Department 09/06/18 REMI KENNEDY (RN) [facility] During your visit today, we recorded the following information about you: Remi Kennedy RN 09/06/2018 3:56 PM Signed PRIMARY CARE COORDINATION FOLLOW-UP NOTE Provider Action/FYI States she didn't decrease bedtime Lantus to 32 units (from 36 units) until Sun, 09/04 Taking Lantus 20 units at HS night before dialysis States her BS bottomed out at dialysis twice this week. One was in the 90's and one 82. Informed pt those aren't low, states she felt horrible and broke out in sweat from head to toe When BS were in 60's had same symptoms, very sweaty and shaky. Patient identified by name and date of . YES Spoke to patient Summary: Luz G Keven is a 77 year old female who reports glucose readings as noted. DATE 09/06 09/05 09/04 09/03 09/02 Fasting 87 171 82 116 262 Noon 102 132 134 103 114 Supper 67 68 Any low blood sugars during this period of reporting Yes Patient's diabetes medications as follows: insulin glargine (LANTUS SOLOSTAR U-100 INSULIN) Inject 50 Units subcutaneously every morning. insulin glargine (LANTUS SOLOSTAR U-100 INSULIN) Inject 32 Units subcutaneously daily at bedtime. insulin aspart U-100 (NOVOLOG FLEXPEN U-100 INSULIN) Sliding Scale: 150-209 1 unit, 210-269 2 units, 270-329 3 units, 330-389 4 units, 390-449 Watermelon Inspector plan for next outreach: Will follow up 2 weeks Signature Remi Kennedy RN September 06, 2018 Jameson Kamara MD 09/06/2018 4:27 PM Signed Noted low sugar symptoms with readings in the 90's to 80s. Decrease lantus to 18 units prior to dialysis and to 28 units at bedtime due to readings in the 60s with supper. Remi Kennedy RN 09/06/2018 5:18 PM Signed PRIMARY CARE COORDINATION QUICK NOTE Provider Action/FYI FYI Patient identified by name and date . TC to dgt, [place], informed the night before dialysis (Sun, Tues and Thurs) pt is to take Lantus 18 units The other nights, (-W-F-Sat) pt is to take 28 units Lantus. Verbalized understanding by teachback. Remi Kennedy RN September 06, 2018 5:18 PM Allergies As of Date: 09/06/2018 Noted Allergy Reaction ASPIRIN 01/20/2018 14 - Other: See Comments Comments: Patient states that she bled out every orifice, sts not allowed to take it at all. Patient states she was bleeding out of nose and mouth after one dose. BACTRIM (SULFAMETHOXAZOLE-TRIMETH*05/17/2017 14 - Other: See Comments Comments: My throat swells up. LATEX 05/17/2017 2 - Rash 9 - Itching Comments: Itching and welts. No wheezing or shortness of breath. PENICILLINS 07/14/2004 2 - Rash 9 - Itching Comments: Tolerated ceftriaxone during 11/2017 admission and cefepime during 12/2017 admission TETRACYCLINE 09/29/2010 2 - Rash 8 - GI Upset Comments: Emesis and diarrhea. 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] Order(s):insulin glargine (LANTUS SOLOSTAR U-100 INSULIN) 100 unit/mL (3 mL) inpnInject 28 Units subcutaneously daily at bedtime.Disp: Rfl: Prescriptions as of 09/06/2018 Sig: INSULIN GLARGINE (U-100) 100 * Inject 28 Units subcutaneousl* CARVEDILOL 3.125 MG TABLET Take 1 tablet by mouth twice * AMIODARONE 200 MG TABLET Take 1 tablet by mouth once d* APIXABAN 5 MG TABLET Take 1 tablet by mouth twice * INSULIN ASPART U-100 100 UNI* Using Sliding Scale: 150-209* INSULIN GLARGINE (U-100) 100 * Inject 50 Units subcutaneousl* BACITRACIN ZINC 500 UNIT/GRAM* Apply 1 application to affect* POLYETHYLENE GLYCOL 3350 17 G* Use 1-2 times daily as needed* SIMVASTATIN 40 MG TABLET Take 1 tablet by mouth every * ISOSORBIDE MONONITRATE ER 30 * Take 3 tablets by mouth once * PREGABALIN 25 MG CAPSULE Take 1 tablet PO daily with a* METOCLOPRAMIDE 5 MG TABLET Take 1 tablet by mouth three * PANTOPRAZOLE 40 MG TABLET,DEL* Take 1 tablet by mouth once d* SENNOSIDES 8.6 MG TABLET Take 8.6 mg by mouth once carlos* ONDANSETRON HCL 4 MG TABLET Take 4 mg by mouth every 8 ho* IPRATROPIUM-ALBUTEROL 0.5 MG-* Inhale 3 mL as instructed leanne* BUDESONIDE 0.5 MG/2 ML SUSPEN* Use 2 mL via nebulizer once d* NYSTATIN 100,000 UNIT/GRAM TO* Apply 1 application to affect* DEXTROMETHORPHAN-GUAIFENESIN * Take 5-10 mL by mouth every 6* NITROGLYCERIN 0.4 MG SUBLINGU* Dissolve 1 tablet under the t* OXYGEN (HOME THERAPY) Inhale 2.5 L/min as instructe* Problem List As Of Date 09/06/2018 Noted Resolved HOCM (hypertrophic obstructive cardiomyopathy) * 01/23/2018 Priority: I More... SVT (supraventricular tachycardia) (HCC) [I47.1] 01/21/2018 More... Carotid artery disease (HCC) [I77.9] 01/22/2018 CAD (coronary artery disease) [I25.10] Priority: E More... Hypertension [I10] Priority: L More... Hyperlipidemia [E78.5] Pneumonia [J18.9] 10/27/2017 More... COPD (chronic obstructive pulmonary disease) (H* Priority: F More... Sleep apnea [G47.30] Priority: I More... HH (hiatus hernia) [K44.9] 01/21/2018 GERD (gastroesophageal reflux disease) [K21.9] Priority: K More... More... Arthritis [M19.90] Numbness and tingling of right leg [R20.0, R20.* 01/21/2018 Depression [F32.9] Atrial fibrillation (HCC) [I48.91] INVALID FOR* Priority: C More... Uncontrolled type 2 diabetes mellitus with stag*INVALID FOR* Priority: H More... More... More... Heart failure, systolic, acute (HCC) [I50.21] INVALID FOR*01/21/2018 More... Obesity [E66.09] INVALID FOR* Priority: M More... Gout [M10.9] Pacemaker [Z95.0] Priority: D More... Chronic combined systolic and diastolic CHF (co*INVALID FOR* Priority: B More... Elevated troponin [R74.8] INVALID FOR*01/22/2018 Priority: G More... Pulmonary hypertension (HCC) [I27.20] INVALID FOR* Oral thrush [B37.0] INVALID FOR*01/21/2018 Hyponatremia [E87.1] INVALID FOR* Priority: J More... Hyperkalemia [E87.5] INVALID FOR*01/22/2018 Priority: J Chest pain in adult [R07.9] INVALID FOR*02/12/2018 Priority: A More... Acute renal failure superimposed on stage 3 chr*INVALID FOR* Priority: A More... Obesity, Class II, BMI 35-39.9 [E66.9] INVALID FOR* ESRD on dialysis (HCC) [N18.6, Z99.2] INVALID FOR* More... Chronic hypoxemic respiratory failure (HCC) [J9*INVALID FOR* Prescriptions ordered this encounter Disp Refills Start End INSULIN GLARGINE (U-100) 100 UNIT/ML* 09/06/2018 Class: Med Update Route: SUBCUTANEOUS Sig: Inject 28 Units subcutaneously daily at bedtime. Medications Discontinued During This Encounter insulin glargine (LANTUS SOLOSTAR U-* 07/21/2018 09/06/2018 Class: Med Update Route: SUBCUTANEOUS Sig: Inject 32 Units subcutaneously daily at bedtime. Disc: Reason for discontinue is not on file. Encounter Status:Closed by REMI KENNEDY on 09/06/18 OBSOLETE Observed: 09/02/2018 Status: COMPLETED Source: [place] 8:00 AM [facility] OTHER CAMPUS REPOSITORY Procedure (AKEPD) LUZ BACA ([id number]) 1940 F Date Time Provider Department 09/02/18 8:00 AM REM DEVICE [facility] AKEPD During your visit today, we recorded the following information about you: Referring Provider: ENE HUBBARD [[id number]] Allergies As of Date: 09/02/2018 Noted Allergy Reaction ASPIRIN 01/20/2018 14 - Other: See Comments Comments: Patient states that she bled out every orifice, sts not allowed to take it at all. Patient states she was bleeding out of nose and mouth after one dose. BACTRIM (SULFAMETHOXAZOLE-TRIMETH*05/17/2017 14 - Other: See Comments Comments: My throat swells up. LATEX 05/17/2017 2 - Rash 9 - Itching Comments: Itching and welts. No wheezing or shortness of breath. PENICILLINS 07/14/2004 2 - Rash 9 - Itching Comments: Tolerated ceftriaxone during 11/2017 admission and cefepime during 12/2017 admission TETRACYCLINE 09/29/2010 2 - Rash 8 - GI Upset Comments: Emesis and diarrhea. ATORVASTATIN 05/17/2017 2 - Rash CODEINE 05/17/2017 14 - Other: See Comments Comments: Numbness DILAUDID (HYDROMORPHONE (BULK)) 05/17/2017 1 - Mental Status Change MEPERIDINE 07/14/2004 PENTAZOCINE 07/14/2004 PIOGLITAZONE 05/17/2017 16 - Unknown PROPOXYPHENE 07/14/2004 Date Reviewed: 08/25/2018 Reviewed by: Kathie Leavitt MA - Fully Assessed Reason for Visit: Remote ICD Follow Up [1924] Visit Diagnosis:Atrial fibrillation, unspecified type ([facility]) [I48.91] Prescriptions as of 09/02/2018 Sig: CARVEDILOL 3.125 MG TABLET Take 1 tablet by mouth twice * AMIODARONE 200 MG TABLET Take 1 tablet by mouth once d* APIXABAN 5 MG TABLET Take 1 tablet by mouth twice * INSULIN ASPART U-100 100 UNI* Using Sliding Scale: 150-209* INSULIN GLARGINE (U-100) 100 * Inject 50 Units subcutaneousl* INSULIN GLARGINE (U-100) 100 * Inject 32 Units subcutaneousl* BACITRACIN ZINC 500 UNIT/GRAM* Apply 1 application to affect* POLYETHYLENE GLYCOL 3350 17 G* Use 1-2 times daily as needed* SIMVASTATIN 40 MG TABLET Take 1 tablet by mouth every * ISOSORBIDE MONONITRATE ER 30 * Take 3 tablets by mouth once * PREGABALIN 25 MG CAPSULE Take 1 tablet PO daily with a* METOCLOPRAMIDE 5 MG TABLET Take 1 tablet by mouth three * PANTOPRAZOLE 40 MG TABLET,DEL* Take 1 tablet by mouth once d* SENNOSIDES 8.6 MG TABLET Take 8.6 mg by mouth once carlos* ONDANSETRON HCL 4 MG TABLET Take 4 mg by mouth every 8 ho* IPRATROPIUM-ALBUTEROL 0.5 MG-* Inhale 3 mL as instructed leanne* BUDESONIDE 0.5 MG/2 ML SUSPEN* Use 2 mL via nebulizer once d* NYSTATIN 100,000 UNIT/GRAM TO* Apply 1 application to affect* DEXTROMETHORPHAN-GUAIFENESIN * Take 5-10 mL by mouth every 6* NITROGLYCERIN 0.4 MG SUBLINGU* Dissolve 1 tablet under the t* OXYGEN (HOME THERAPY) Inhale 2.5 L/min as instructe* Problem List As Of Date 09/02/2018 Noted Resolved HOCM (hypertrophic obstructive cardiomyopathy) * 01/23/2018 Priority: I More... SVT (supraventricular tachycardia) ([facility]) [I47.1] 01/21/2018 More... Carotid artery disease (HCC) [I77.9] 01/22/2018 CAD (coronary artery disease) [I25.10] Priority: E More... Hypertension [I10] Priority: L More... Hyperlipidemia [E78.5] Pneumonia [J18.9] 10/27/2017 More... COPD (chronic obstructive pulmonary disease) (H* Priority: F More... Sleep apnea [G47.30] Priority: I More... HH (hiatus hernia) [K44.9] 01/21/2018 GERD (gastroesophageal reflux disease) [K21.9] Priority: K More... More... Arthritis [M19.90] Numbness and tingling of right leg [R20.0, R20.* 01/21/2018 Depression [F32.9] Atrial fibrillation (HCC) [I48.91] INVALID FOR* Priority: C More... Uncontrolled type 2 diabetes mellitus with stag*INVALID FOR* Priority: H More... More... More... Heart failure, systolic, acute (HCC) [I50.21] INVALID FOR*01/21/2018 More... Obesity [E66.09] INVALID FOR* Priority: M More... Gout [M10.9] Pacemaker [Z95.0] Priority: D More... Chronic combined systolic and diastolic CHF (co*INVALID FOR* Priority: B More... Elevated troponin [R74.8] INVALID FOR*01/22/2018 Priority: G More... Pulmonary hypertension (HCC) [I27.20] INVALID FOR* Oral thrush [B37.0] INVALID FOR*01/21/2018 Hyponatremia [E87.1] INVALID FOR* Priority: J More... Hyperkalemia [E87.5] INVALID FOR*01/22/2018 Priority: J Chest pain in adult [R07.9] INVALID FOR*02/12/2018 Priority: A More... Acute renal failure superimposed on stage 3 chr*INVALID FOR* Priority: A More... Obesity, Class II, BMI 35-39.9 [E66.9] INVALID FOR* ESRD on dialysis (HCC) [N18.6, Z99.2] INVALID FOR* More... Chronic hypoxemic respiratory failure (HCC) [J9*INVALID FOR* Encounter Status:Closed by EDUARDO HERNANDEZ on 09/02/18 PROGRESS Observed: 08/31/2018 Status: COMPLETED Source: [place] 5:22 PM [facility] REPOSITORY HNO ID: [id number] Author: Remi Briseno) Brent Service: (none) Author Type: Registered Nurse Type: Progress Notes Filed: 08/31/2018 5:26 PM Note Text: PRIMARY CARE COORDINATION QUICK NOTE Provider Action/FYI FYI Patient identified by name and date . Instructed daughter pt is to take Lantus 50 units in the morning every day. In the evening on Wednesday, and pt is to take Lantus 20 units. The evening of Wed, Wed, Wed and Wed pt is to take Lantus 32 units. PCP is decreasing pt's insulin the night before dialysis to hopefully keep her from having low BS at dialysis. PCC will call pt next week for BS Dgt verbalized understanding by teach back. Remi Kennedy RN August 31, 2018 5:26 PM PROGRESS Observed: 08/30/2018 Status: COMPLETED Source: [place] 5:23 PM [facility] REPOSITORY HNO ID: [id number] Author: Jameson Adams) Koffi Service: (none) Author Type: Physician Type: Progress Notes Filed: 08/30/2018 5:23 PM Note Text: Have her decrease insulin as previously recommended and on days before dialysis try 20 units of lantus in the pm. PROGRESS Observed: 08/30/2018 Status: COMPLETED Source: [place] 4:10 PM [facility] REPOSITORY HNO ID: [id number] Author: Remi Briseno) Brent Service: (none) Author Type: Registered Nurse Type: Progress Notes Filed: 08/30/2018 4:26 PM Note Text: PRIMARY CARE COORDINATION FOLLOW-UP NOTE Provider Action/FYI BS ranging 60's to 102 highest. Has hypoglycemia at dialysis (eats before and dgt packs a lunch.) Reports dose of Lantus 56 units in AM and 36 in PM Pt never decreased dose of Lantus on 07/21 as ordered ( 50 units in AM and 32 units in PM) BP ranging 112-155/70's-112 Patient identified by name and date of . YES Spoke to patient Summary: States Dr. Claudio told her she has ulcers and pt having another EGD on 09/01 She is having trouble eating due to stomach pain that doubles me up with anything I eat. States she is mostly drinking water and juice. No chest pain BS ranging 60's to 102 highest. Has hypoglycemia at dialysis. Reports dose of Lantus 56 units in AM and 36 in PM Pt never decreased dose of Lantus on 07/21 or called with hypoglycemia. BP ranging 112-155/70's-112 Watermelon Inspector plan for next outreach: Will follow up one week Signature Remi Kennedy RN August 30, 2018 LUDA Observed: 08/30/2018 Status: COMPLETED Source: [place] 12:00 AM [facility] REPOSITORY Patient Outreach (FAMPWS) LUZ BACA ([id number]) 1940 F Date Time Provider Department 08/30/18 REMI KENNEDY (RN) FAMPWS During your visit today, we recorded the following information about you: Remi Kennedy RN 08/30/2018 4:26 PM Addendum PRIMARY CARE COORDINATION FOLLOW-UP NOTE Provider Action/FYI BS ranging 60's to 102 highest. Has hypoglycemia at dialysis (eats before and dgt packs a lunch.) Reports dose of Lantus 56 units in AM and 36 in PM Pt never decreased dose of Lantus on 07/21 as ordered ( 50 units in AM and 32 units in PM) BP ranging 112-155/70's-112 Patient identified by name and date of . YES Spoke to patient Summary: States Dr. Claudio told her she has ulcers and pt having another EGD on 09/01 She is having trouble eating due to stomach pain that doubles me up with anything I eat. States she is mostly drinking water and juice. No chest pain BS ranging 60's to 102 highest. Has hypoglycemia at dialysis. Reports dose of Lantus 56 units in AM and 36 in PM Pt never decreased dose of Lantus on 07/21 or called with hypoglycemia. BP ranging 112-155/70's-112 Watermelon Inspector plan for next outreach: Will follow up one week Signature Remi Kennedy RN August 30, 2018 Jameson Kamara MD 08/30/2018 5:23 PM Signed Have her decrease insulin as previously recommended and on days before dialysis try 20 units of lantus in the pm. Remi Kennedy RN 08/31/2018 5:26 PM Signed PRIMARY CARE COORDINATION QUICK NOTE Provider Action/FYI FYI Patient identified by name and date . Instructed daughter pt is to take Lantus 50 units in the morning every day. In the evening on Wednesday, and pt is to take Lantus 20 units. The evening of Wed, Wed, Wed and Wed pt is to take Lantus 32 units. PCP is decreasing pt's insulin the night before dialysis to hopefully keep her from having low BS at dialysis. PCC will call pt next week for BS Dgt verbalized understanding by teach back. Remi Kennedy RN August 31, 2018 5:26 PM Allergies As of Date: 08/30/2018 Noted Allergy Reaction ASPIRIN 01/20/2018 14 - Other: See Comments Comments: Patient states that she bled out every orifice, sts not allowed to take it at all. Patient states she was bleeding out of nose and mouth after one dose. BACTRIM (SULFAMETHOXAZOLE-TRIMETH*05/17/2017 14 - Other: See Comments Comments: My throat swells up. LATEX 05/17/2017 2 - Rash 9 - Itching Comments: Itching and welts. No wheezing or shortness of breath. PENICILLINS 07/14/2004 2 - Rash 9 - Itching Comments: Tolerated ceftriaxone during 11/2017 admission and cefepime during 12/2017 admission TETRACYCLINE 09/29/2010 2 - Rash 8 - GI Upset Comments: Emesis and diarrhea. 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] Prescriptions as of 08/30/2018 Sig: CARVEDILOL 3.125 MG TABLET Take 1 tablet by mouth twice * AMIODARONE 200 MG TABLET Take 1 tablet by mouth once d* APIXABAN 5 MG TABLET Take 1 tablet by mouth twice * INSULIN ASPART U-100 100 UNI* Using Sliding Scale: 150-209* INSULIN GLARGINE (U-100) 100 * Inject 50 Units subcutaneousl* INSULIN GLARGINE (U-100) 100 * Inject 32 Units subcutaneousl* BACITRACIN ZINC 500 UNIT/GRAM* Apply 1 application to affect* POLYETHYLENE GLYCOL 3350 17 G* Use 1-2 times daily as needed* SIMVASTATIN 40 MG TABLET Take 1 tablet by mouth every * ISOSORBIDE MONONITRATE ER 30 * Take 3 tablets by mouth once * PREGABALIN 25 MG CAPSULE Take 1 tablet PO daily with a* METOCLOPRAMIDE 5 MG TABLET Take 1 tablet by mouth three * PANTOPRAZOLE 40 MG TABLET,DEL* Take 1 tablet by mouth once d* SENNOSIDES 8.6 MG TABLET Take 8.6 mg by mouth once carlos* ONDANSETRON HCL 4 MG TABLET Take 4 mg by mouth every 8 ho* IPRATROPIUM-ALBUTEROL 0.5 MG-* Inhale 3 mL as instructed leanne* BUDESONIDE 0.5 MG/2 ML SUSPEN* Use 2 mL via nebulizer once d* NYSTATIN 100,000 UNIT/GRAM TO* Apply 1 application to affect* DEXTROMETHORPHAN-GUAIFENESIN * Take 5-10 mL by mouth every 6* NITROGLYCERIN 0.4 MG SUBLINGU* Dissolve 1 tablet under the t* OXYGEN (HOME THERAPY) Inhale 2.5 L/min as instructe* Problem List As Of Date 08/30/2018 Noted Resolved HOCM (hypertrophic obstructive cardiomyopathy) * 01/23/2018 Priority: I More... SVT (supraventricular tachycardia) (HCC) [I47.1] 01/21/2018 More... Carotid artery disease (HCC) [I77.9] 01/22/2018 CAD (coronary artery disease) [I25.10] Priority: E More... Hypertension [I10] Priority: L More... Hyperlipidemia [E78.5] Pneumonia [J18.9] 10/27/2017 More... COPD (chronic obstructive pulmonary disease) (H* Priority: F More... Sleep apnea [G47.30] Priority: I More... HH (hiatus hernia) [K44.9] 01/21/2018 GERD (gastroesophageal reflux disease) [K21.9] Priority: K More... More... Arthritis [M19.90] Numbness and tingling of right leg [R20.0, R20.* 01/21/2018 Depression [F32.9] Atrial fibrillation (HCC) [I48.91] INVALID FOR* Priority: C More... Uncontrolled type 2 diabetes mellitus with stag*INVALID FOR* Priority: H More... More... More... Heart failure, systolic, acute (HCC) [I50.21] INVALID FOR*01/21/2018 More... Obesity [E66.09] INVALID FOR* Priority: M More... Gout [M10.9] Pacemaker [Z95.0] Priority: D More... Chronic combined systolic and diastolic CHF (co*INVALID FOR* Priority: B More... Elevated troponin [R74.8] INVALID FOR*01/22/2018 Priority: G More... Pulmonary hypertension (HCC) [I27.20] INVALID FOR* Oral thrush [B37.0] INVALID FOR*01/21/2018 Hyponatremia [E87.1] INVALID FOR* Priority: J More... Hyperkalemia [E87.5] INVALID FOR*01/22/2018 Priority: J Chest pain in adult [R07.9] INVALID FOR*02/12/2018 Priority: A More... Acute renal failure superimposed on stage 3 chr*INVALID FOR* Priority: A More... Obesity, Class II, BMI 35-39.9 [E66.9] INVALID FOR* ESRD on dialysis (HCC) [N18.6, Z99.2] INVALID FOR* More... Chronic hypoxemic respiratory failure (HCC) [J9*INVALID FOR* Encounter Status:Closed by REMI KENNEDY on 08/31/18 PROGRESS Observed: 08/26/2018 Status: COMPLETED Source: [place] 10:16 PM [facility] REPOSITORY HNO ID: [id number] Author: Jose C Rodriguez Service: (none) Author Type: Physician Type: Progress Notes Filed: 08/26/2018 10:19 PM Note Text: Follow up podiatric office visit for: Chief Complaint: This 77 year old who presents for follow up blisters/ulceration of left hallux. She declines any open sores today. She is awaiting shoes from [employer]. She continues with lotion to her feet on most days. PAIN EVALUATION 08/25/2018 Pain Score: 7 Pain Location: Foot-Left Description: Throbbing Duration Amount of Time: 2 Duration Units: Months Frequency: Continuous Intervention: Medication Hemoglobin A1C Date Value Ref Range Status 08/04/2018 6.3 (H) 4.3 - 5.6 % Final PCP: Jameson Kamara MD PAST MEDICAL HISTORY Diagnosis Date - Arthritis - Atrial fibrillation ([facility]) - CAD (coronary artery disease) stents x9, defibrillator, CABG. Seeing Dr. Cardona - Cardiac defibrillator in place - Cardiomegaly - Carotid artery disease ([facility]) left - Chronic hypoxemic respiratory failure ([facility]) 07/01/2018 - Chronic kidney disease (CKD) stage G3b/A2, moderately decreased glomerular filtration rate (GFR) between 30-44 mL/min/1.73 square meter and albuminuria creatinine ratio between 30-299 mg/g ([facility]) Dr. Martin - COPD (chronic obstructive pulmonary disease) ([facility]) Dr. Cruz - Depression - Diabetes ([facility]) - Diabetic neuropathy ([facility]) - Edema - ESRD (end stage renal disease) on dialysis ([facility]) [facility], Dr. Martin - GERD (gastroesophageal reflux disease) - Gout with hyperuricemia - HH (hiatus hernia) - HOCM (hypertrophic obstructive cardiomyopathy) ([facility]) S/P Septal Myectomy in 2003. Now with LVEF 50% and mod/severe pulm HTN. - HTN (hypertension) - Hyperlipidemia - Morbid obesity with BMI of 40.0-44.9, adult ([facility]) - Presence of combination internal cardiac defibrillator (ICD) and pacemaker - Sleep apnea 2011 not on CPAP, unable to tolerate mask 02/2017 - SVT (supraventricular tachycardia) ([facility]) NSVT and questionable VT in 2003 post op Current Outpatient Prescriptions: carvedilol (COREG) 3.125 mg tablet Take 1 tablet by mouth twice daily with meals. amiodarone (PACERONE) 200 mg tablet Take 1 tablet by mouth once daily. apixaban (ELIQUIS) 5 mg tab(s) Take 1 tablet by mouth twice daily. insulin aspart U-100 (NOVOLOG FLEXPEN U-100 INSULIN) 100 unit/mL inpn Using Sliding Scale: 150-209 1 unit, 210-269 2 units, 270- 329 3 units, 330-389 4 units, 390-449 5 units insulin glargine (LANTUS SOLOSTAR U-100 INSULIN) 100 unit/mL (3 mL) inpn Inject 50 Units subcutaneously every morning. insulin glargine (LANTUS SOLOSTAR U-100 INSULIN) 100 unit/mL (3 mL) inpn Inject 32 Units subcutaneously daily at bedtime. bacitracin zinc (ANTIBIOTIC, BACITRACIN ZINC,) 500 unit/gram ointment Apply 1 application to affected area twice daily. polyethylene glycol 3350 (MIRALAX) 17 gram/dose powder Use 1-2 times daily as needed for constipation. simvastatin (ZOCOR) 40 mg tablet Take 1 tablet by mouth every morning. isosorbide mononitrate ER (IMDUR) 30 mg 24 hr tablet Take 3 tablets by mouth once daily. pregabalin (LYRICA) 25 mg capsule Take 1 tablet PO daily with an additional 1 tablet PO after dialysis MWF metoclopramide HCl (REGLAN) 5 mg tablet Take 1 tablet by mouth three times daily. pantoprazole DR (PROTONIX) 40 mg tablet Take 1 tablet by mouth once daily. senna (SENNA) 8.6 mg tab Take 8.6 mg by mouth once daily. ondansetron (ZOFRAN) 4 mg tablet Take 4 mg by mouth every 8 hours as needed. ipratropium-albuterol (DUONEB) 0.5 mg-3 mg(2.5 mg base)/3 mL nebu Inhale 3 mL as instructed every 4 hours while awake. And prn for wheezing/shortness of breath. budesonide (PULMICORT) 0.5 mg/2 mL nebulizer solution Use 2 mL via nebulizer once daily. INHALE 2 ML BY NEBULIZER OVER 5-15 MINUTES EVERY 12 HOURS. nystatin (NYSTOP) powder Apply 1 application to affected area three times daily. guaiFENesin-dextromethorphan (ROBITUSSIN DM) 100-10 mg/5 mL syrup Take 5-10 mL by mouth every 6 hours as needed for Cough. nitroglycerin sublingual (NITROQUICK) 0.4 mg SL tablet Dissolve 1 tablet under the tongue every 5 minutes as needed. OXYGEN, HOME THERAPY, Inhale 2.5 L/min as instructed continuous. 3 L/min when leaves home. No current facility-administered medications for this visit. ALLERGIES Allergen Reactions - Aspirin Other: See Comments Patient states that she bled out every orifice, sts not allowed to take it at all. Patient states she was bleeding out of nose and mouth after one dose. - Bactrim [Sulfametho* Other: See Comments My throat swells up. - Latex Rash, Itching Itching and welts. No wheezing or shortness of breath. - Penicillins Rash, Itching Tolerated ceftriaxone during 11/2017 admission and cefepime during 12/2017 admission - Tetracycline Rash, GI Upset Emesis and diarrhea. - Atorvastatin Rash - Codeine Other: See Comments Numbness - Dilaudid [Hydromorp* Mental Status Change - Meperidine - Pentazocine - Pioglitazone Unknown - Propoxyphene PAST SURGICAL HISTORY Procedure Laterality Date - CABG (1) VEIN GRAFT AND ARTERIAL GRAFT - CHOLECYSTECTOMY HX - DIALYSIS ACCESS SYSTEM - HEART SURGERY HX 07/18/2004 Septal myectomy and CABG x2 (DEBORAH-LAD, SVG-PDA). - HYSTERECTOMY HX - IANDD PERIANAL ABSCESS - PACEMAKER with defib - PAST SURGICAL HISTORY OF left breast nodule removed - PAST SURGICAL HISTORY OF skin lesions removed - STENT PLACEMENT coronary Physical Exam: Constitutional: Pt is a well developed 77 year old female who is alert, oriented, cooperative and in no apparent distress. OBJECTIVE: NVSI unchanged from previous visit. Dermatological: Nails 1-5 b/l are dystrophic. Webspaces clean and dry 1-4 b/l. Skin appears dry, scaly. No open lesions present. No callosities present. Musculoskeletal/Orthopaedic: Patient has no pain to palpation of b/l feet ASSESSMENT: (L85.3) Xerosis cutis (primary encounter diagnosis) (E11.49) Other diabetic neurological complication associated with type 2 diabetes mellitus (HCC) PLAN: Patient ulcerations are now healed to left foot. She does have dryness and I recommend continued use of lotion to feet daily She is wearing sneakers which appear to fit her well. Awaiting diabetic shoes from [employer]. Patient will continue to monitor her feet daily, use lotion and avoid barefoot walking. On exam, there are no sores other than dryness noted above. If sores were to develop, she is to contact the office. F/u in 1 month 12 LEAD ELECTROCARDIOGRAM Observed: 08/26/2018 Status: F Source: [place] 8:36 AM [facility] REPOSITORY [facility] Cardiovascular Services [address] [place] [address] 12 Lead EKG 08/18/18 0409 MR#: [id number] Acct: [id number] Name: LUZ BACA Rep #: [id number] : [id number] 77 From: Parker Cosby MD Attending Dr: Dina Claudio MD Status: DIS JUAN DANIEL Ordering Dr: Dina Claudio MD Date: 08/18/18 Location: [facility] [place] Sex: F C Admitted: 08/17/18 Test Reason : AM EKG Blood Pressure : / mmHG Vent. Rate : 068 BPM Atrial Rate : 258 BPM P-R Int : 000 ms QRS Dur : 208 ms QT Int : 536 ms P-R-T Axes : 000 270 111 degrees QTc Int : 569 ms Demand pacemaker; interpretation is based on intrinsic rhythm Wide QRS rhythm with Premature ventricular complexes or Fusion complexes Right bundle branch block Septal infarct , age undetermined Abnormal ECG When compared with ECG of 19-MAY-2018 12:07, Wide QRS rhythm has replaced Electronic ventricular pacemaker Confirmed by PARKER COSBY MD ([id number]), continuity editor JASON ALDANA ([id number]) on 08/26/2018 8:35:56 AM Referred By: Dina Claudio Confirmed By:PARKER COSBY MD 08/26/18 0836 Date Parker Cosby MD CC: Mook Kamara MD; Dina Claudio MD Signed PROGRESS Observed: 08/25/2018 Status: COMPLETED Source: [place] 10:30 AM [facility] REPOSITORY HNO ID: [id number] Author: Kathie Leavitt MA Service: (none) Author Type: (none) Type: Progress Notes Filed: 08/26/2018 10:19 PM Note Text: AMB ROOMING INTAKE FLOWSHEET DATA Pain Pain Score: 7/10 Pain Location: Foot-Left Description: Throbbing Duration Amount of Time: 2 Duration Units: Months Frequency: Continuous Intervention: Medication Patient is here for 2 wk f/u blister, L hallux , 2nd toe looks like a new small ulcer on 3rd toe. Yanke has been ordered waiting to received. Pain is 7/10 throbbing, she takes Vandana for the pain which last around 4 hours. Kathie Leavitt MA CNOV Observed: 08/25/2018 Status: COMPLETED Source: [place] 9:55 AM [facility] REPOSITORY Office Visit (PODIWS) LUZ BACA ([id number]) 1940 F Date Time Provider Department 08/25/18 9:55 AM [facility] During your visit today, we recorded the following information about you: Kathie Leavitt MA 08/26/2018 10:19 PM Signed AMB ROOMING INTAKE FLOWSHEET DATA Pain Pain Score: 7/10 Pain Location: Foot-Left Description: Throbbing Duration Amount of Time: 2 Duration Units: Months Frequency: Continuous Intervention: Medication Patient is here for 2 wk f/u blister, L hallux , 2nd toe looks like a new small ulcer on 3rd toe. Yanke has been ordered waiting to received. Pain is 7/10 throbbing, she takes Vandana for the pain which last around 4 hours. Kathie Rodriguez DPM 08/26/2018 10:19 PM Signed Follow up podiatric office visit for: Chief Complaint: This 77 year old who presents for follow up blisters/ulceration of left hallux. She declines any open sores today. She is awaiting shoes from [employer]. She continues with lotion to her feet on most days. PAIN EVALUATION 08/25/2018 Pain Score: 7 Pain Location: Foot-Left Description: Throbbing Duration Amount of Time: 2 Duration Units: Months Frequency: Continuous Intervention: Medication Hemoglobin A1C Date Value Ref Range Status 08/04/2018 6.3 (H) 4.3 - 5.6 % Final PCP: Jameson Kamara MD PAST MEDICAL HISTORY Diagnosis Date - Arthritis - Atrial fibrillation ([facility]) - CAD (coronary artery disease) stents x9, defibrillator, CABG. Seeing Dr. Cardona - Cardiac defibrillator in place - Cardiomegaly - Carotid artery disease ([facility]) left - Chronic hypoxemic respiratory failure ([facility]) 07/01/2018 - Chronic kidney disease (CKD) stage G3b/A2, moderately decreased glomerular filtration rate (GFR) between 30-44 mL/min/1.73 square meter and albuminuria creatinine ratio between 30-299 mg/g ([facility]) Dr. Martin - COPD (chronic obstructive pulmonary disease) ([facility]) Dr. Cruz - Depression - Diabetes ([facility]) - Diabetic neuropathy ([facility]) - Edema - ESRD (end stage renal disease) on dialysis ([facility]) [facility], Dr. Martin - GERD (gastroesophageal reflux disease) - Gout with hyperuricemia - HH (hiatus hernia) - HOCM (hypertrophic obstructive cardiomyopathy) ([facility]) S/P Septal Myectomy in 2003. Now with LVEF 50% and mod/severe pulm HTN. - HTN (hypertension) - Hyperlipidemia - Morbid obesity with BMI of 40.0-44.9, adult ([facility]) - Presence of combination internal cardiac defibrillator (ICD) and pacemaker - Sleep apnea 2011 not on CPAP, unable to tolerate mask 02/2017 - SVT (supraventricular tachycardia) ([facility]) NSVT and questionable VT in 2003 post op Current Outpatient Prescriptions: carvedilol (COREG) 3.125 mg tablet Take 1 tablet by mouth twice daily with meals. amiodarone (PACERONE) 200 mg tablet Take 1 tablet by mouth once daily. apixaban (ELIQUIS) 5 mg tab(s) Take 1 tablet by mouth twice daily. insulin aspart U-100 (NOVOLOG FLEXPEN U-100 INSULIN) 100 unit/mL inpn Using Sliding Scale: 150-209 1 unit, 210-269 2 units, 270-329 3 units, 330-389 4 units, 390-449 5 units insulin glargine (LANTUS SOLOSTAR U-100 INSULIN) 100 unit/mL (3 mL) inpn Inject 50 Units subcutaneously every morning. insulin glargine (LANTUS SOLOSTAR U-100 INSULIN) 100 unit/mL (3 mL) inpn Inject 32 Units subcutaneously daily at bedtime. bacitracin zinc (ANTIBIOTIC, BACITRACIN ZINC,) 500 unit/gram ointment Apply 1 application to affected area twice daily. polyethylene glycol 3350 (MIRALAX) 17 gram/dose powder Use 1-2 times daily as needed for constipation. simvastatin (ZOCOR) 40 mg tablet Take 1 tablet by mouth every morning. isosorbide mononitrate ER (IMDUR) 30 mg 24 hr tablet Take 3 tablets by mouth once daily. pregabalin (LYRICA) 25 mg capsule Take 1 tablet PO daily with an additional 1 tablet PO after dialysis MWF metoclopramide HCl (REGLAN) 5 mg tablet Take 1 tablet by mouth three times daily. pantoprazole DR (PROTONIX) 40 mg tablet Take 1 tablet by mouth once daily. senna (SENNA) 8.6 mg tab Take 8.6 mg by mouth once daily. ondansetron (ZOFRAN) 4 mg tablet Take 4 mg by mouth every 8 hours as needed. ipratropium-albuterol (DUONEB) 0.5 mg-3 mg(2.5 mg base)/3 mL nebu Inhale 3 mL as instructed every 4 hours while awake. And prn for wheezing/shortness of breath. budesonide (PULMICORT) 0.5 mg/2 mL nebulizer solution Use 2 mL via nebulizer once daily. INHALE 2 ML BY NEBULIZER OVER 5-15 MINUTES EVERY 12 HOURS. nystatin (NYSTOP) powder Apply 1 application to affected area three times daily. guaiFENesin-dextromethorphan (ROBITUSSIN DM) 100-10 mg/5 mL syrup Take 5-10 mL by mouth every 6 hours as needed for Cough. nitroglycerin sublingual (NITROQUICK) 0.4 mg SL tablet Dissolve 1 tablet under the tongue every 5 minutes as needed. OXYGEN, HOME THERAPY, Inhale 2.5 L/min as instructed continuous. 3 L/min when leaves home. No current facility-administered medications for this visit. ALLERGIES Allergen Reactions - Aspirin Other: See Comments Patient states that she bled out every orifice, sts not allowed to take it at all. Patient states she was bleeding out of nose and mouth after one dose. - Bactrim [Sulfametho* Other: See Comments My throat swells up. - Latex Rash, Itching Itching and welts. No wheezing or shortness of breath. - Penicillins Rash, Itching Tolerated ceftriaxone during 11/2017 admission and cefepime during 12/2017 admission - Tetracycline Rash, GI Upset Emesis and diarrhea. - Atorvastatin Rash - Codeine Other: See Comments Numbness - Dilaudid [Hydromorp* Mental Status Change - Meperidine - Pentazocine - Pioglitazone Unknown - Propoxyphene PAST SURGICAL HISTORY Procedure Laterality Date - CABG (1) VEIN GRAFT AND ARTERIAL GRAFT - CHOLECYSTECTOMY HX - DIALYSIS ACCESS SYSTEM - HEART SURGERY HX 07/18/2004 Septal myectomy and CABG x2 (DEBORAH-LAD, SVG-PDA). - HYSTERECTOMY HX - IANDD PERIANAL ABSCESS - PACEMAKER with defib - PAST SURGICAL HISTORY OF left breast nodule removed - PAST SURGICAL HISTORY OF skin lesions removed - STENT PLACEMENT coronary Physical Exam: Constitutional: Pt is a well developed 77 year old female who is alert, oriented, cooperative and in no apparent distress. OBJECTIVE: NVSI unchanged from previous visit. Dermatological: Nails 1-5 b/l are dystrophic. Webspaces clean and dry 1-4 b/l. Skin appears dry, scaly. No open lesions present. No callosities present. Musculoskeletal/Orthopaedic: Patient has no pain to palpation of b/l feet ASSESSMENT: (L85.3) Xerosis cutis (primary encounter diagnosis) (E11.49) Other diabetic neurological complication associated with type 2 diabetes mellitus (HCC) PLAN: Patient ulcerations are now healed to left foot. She does have dryness and I recommend continued use of lotion to feet daily She is wearing sneakers which appear to fit her well. Awaiting diabetic shoes from [employer]. Patient will continue to monitor her feet daily, use lotion and avoid barefoot walking. On exam, there are no sores other than dryness noted above. If sores were to develop, she is to contact the office. F/u in 1 month Referring Provider: JOSE C RODRIGUEZ [[id number]] Allergies As of Date: 08/25/2018 Noted Allergy Reaction ASPIRIN 01/20/2018 14 - Other: See Comments Comments: Patient states that she bled out every orifice, sts not allowed to take it at all. Patient states she was bleeding out of nose and mouth after one dose. BACTRIM (SULFAMETHOXAZOLE-TRIMETH*05/17/2017 14 - Other: See Comments Comments: My throat swells up. LATEX 05/17/2017 2 - Rash 9 - Itching Comments: Itching and welts. No wheezing or shortness of breath. PENICILLINS 07/14/2004 2 - Rash 9 - Itching Comments: Tolerated ceftriaxone during 11/2017 admission and cefepime during 12/2017 admission TETRACYCLINE 09/29/2010 2 - Rash 8 - GI Upset Comments: Emesis and diarrhea. ATORVASTATIN 05/17/2017 2 - Rash CODEINE 05/17/2017 14 - Other: See Comments Comments: Numbness DILAUDID (HYDROMORPHONE (BULK)) 05/17/2017 1 - Mental Status Change MEPERIDINE 07/14/2004 PENTAZOCINE 07/14/2004 PIOGLITAZONE 05/17/2017 16 - Unknown PROPOXYPHENE 07/14/2004 Date Reviewed: 08/25/2018 Reviewed by: Kathie Leavitt MA - Fully Assessed Reason for Visit: Follow Up [171] Primary Visit Diagnosis:Xerosis cutis [L85.3] Other Visit Diagnosis:Other diabetic neurological complication associated with type 2 diabetes mellitus (HCC) [E11.49] Prescriptions as of 08/25/2018 Sig: CARVEDILOL 3.125 MG TABLET Take 1 tablet by mouth twice * AMIODARONE 200 MG TABLET Take 1 tablet by mouth once d* APIXABAN 5 MG TABLET Take 1 tablet by mouth twice * INSULIN ASPART U-100 100 UNI* Using Sliding Scale: 150-209* INSULIN GLARGINE (U-100) 100 * Inject 50 Units subcutaneousl* INSULIN GLARGINE (U-100) 100 * Inject 32 Units subcutaneousl* BACITRACIN ZINC 500 UNIT/GRAM* Apply 1 application to affect* POLYETHYLENE GLYCOL 3350 17 G* Use 1-2 times daily as needed* SIMVASTATIN 40 MG TABLET Take 1 tablet by mouth every * ISOSORBIDE MONONITRATE ER 30 * Take 3 tablets by mouth once * PREGABALIN 25 MG CAPSULE Take 1 tablet PO daily with a* METOCLOPRAMIDE 5 MG TABLET Take 1 tablet by mouth three * PANTOPRAZOLE 40 MG TABLET,DEL* Take 1 tablet by mouth once d* SENNOSIDES 8.6 MG TABLET Take 8.6 mg by mouth once carlos* ONDANSETRON HCL 4 MG TABLET Take 4 mg by mouth every 8 ho* IPRATROPIUM-ALBUTEROL 0.5 MG-* Inhale 3 mL as instructed leanne* BUDESONIDE 0.5 MG/2 ML SUSPEN* Use 2 mL via nebulizer once d* NYSTATIN 100,000 UNIT/GRAM TO* Apply 1 application to affect* DEXTROMETHORPHAN-GUAIFENESIN * Take 5-10 mL by mouth every 6* NITROGLYCERIN 0.4 MG SUBLINGU* Dissolve 1 tablet under the t* OXYGEN (HOME THERAPY) Inhale 2.5 L/min as instructe* Problem List As Of Date 08/25/2018 Noted Resolved HOCM (hypertrophic obstructive cardiomyopathy) * 01/23/2018 Priority: I More... SVT (supraventricular tachycardia) (HCC) [I47.1] 01/21/2018 More... Carotid artery disease (HCC) [I77.9] 01/22/2018 CAD (coronary artery disease) [I25.10] Priority: E More... Hypertension [I10] Priority: L More... Hyperlipidemia [E78.5] Pneumonia [J18.9] 10/27/2017 More... COPD (chronic obstructive pulmonary disease) (H* Priority: F More... Sleep apnea [G47.30] Priority: I More... HH (hiatus hernia) [K44.9] 01/21/2018 GERD (gastroesophageal reflux disease) [K21.9] Priority: K More... More... Arthritis [M19.90] Numbness and tingling of right leg [R20.0, R20.* 01/21/2018 Depression [F32.9] Atrial fibrillation (HCC) [I48.91] INVALID FOR* Priority: C More... Uncontrolled type 2 diabetes mellitus with stag*INVALID FOR* Priority: H More... More... More... Heart failure, systolic, acute (HCC) [I50.21] INVALID FOR*01/21/2018 More... Obesity [E66.09] INVALID FOR* Priority: M More... Gout [M10.9] Pacemaker [Z95.0] Priority: D More... Chronic combined systolic and diastolic CHF (co*INVALID FOR* Priority: B More... Elevated troponin [R74.8] INVALID FOR*01/22/2018 Priority: G More... Pulmonary hypertension (HCC) [I27.20] INVALID FOR* Oral thrush [B37.0] INVALID FOR*01/21/2018 Hyponatremia [E87.1] INVALID FOR* Priority: J More... Hyperkalemia [E87.5] INVALID FOR*01/22/2018 Priority: J Chest pain in adult [R07.9] INVALID FOR*02/12/2018 Priority: A More... Acute renal failure superimposed on stage 3 chr*INVALID FOR* Priority: A More... Obesity, Class II, BMI 35-39.9 [E66.9] INVALID FOR* ESRD on dialysis (HCC) [N18.6, Z99.2] INVALID FOR* More... Chronic hypoxemic respiratory failure (HCC) [J9*INVALID FOR* Disposition: Return in about 1 month (around 2018). Follow-up and Disposition History Recorded Encounter Status:Closed by JOSE C RODRIGUEZ DPM on 08/26/18 PROGRESS Observed: 08/23/2018 Status: COMPLETED Source: [place] 4:58 PM [facility] [place] REPOSITORY O ID: [id number] Author: Seferino lAberts (Pa) Service: (none) Author Type: Physician Transport Driver Type: Progress Notes Filed: 08/23/2018 5:12 PM Note Text: HISTORY AND PHYSICAL Luz Baca 1940 REFERRING PHYSICIAN: Jameson Kamara * CHIEF COMPLAINT: Post Op HPI: Luz is a patient I am following with Dr. Claudio for heme positive stool. Per Dr. Claudio's HANDP from 08/11/18: The patient is a 77 year old female referred for endoscopy. Luz notes , denies abdominal pain area did the patient notes episodic diarrhea and constipation. More recently, the patient has had more episodes of diarrhea. While denying true pain. She does note some abdominal cramping and periumbilical area. ? The patient denies nausea or vomiting. She denies hematemesis. She denies melena or hematochezia. The patient had a recent stool for occult blood which was positive. ? Patient has a recent history of dysphagia. She underwent upper endoscopy with esophageal dilatation on's December 31, 2017. This was performed in [place]. The patient was found to have a 3 cm hiatal hernia irregular GE junction and a shop. He is wearing that was dilated. ? ? Pathology returned as chronic active gastritis with H. pylori-like organisms. Negative for dysplasia on the stomach, biopsy, gastric biopsy demonstrated reactive gastric mucosa, negative for metaplasia or dysplasia. Esophageal biopsy returned as active inflammation. H. pylori antibody was positive. The patient was treated with eradication for H. pylori. She's been maintained on proton pump inhibitors. ? The patient had colonoscopy performed she recalls 5 years previously and [place]. She is uncertain what the findings were or what the recommended follow-up were. ? Has extensive past medical history - most recently, the patient had a non-ST segment myocardial infarction on May 13. She underwent cardiac catheterization which demonstrated an occluded venous graft, a patent VU graft and a 60% stenosis of the mid LAD. ? The patient also has a history of supraventricular tachycardia, sleep apnea, morbid obesity, hypertrophic obstructive cardiomyopathy, diabetic neuropathy, diabetes, COPD, chronic renal failure on dialysis with failed dialysis access. Carotid artery disease pacer defibrillator in place. ? She is referred for endoscopy due to blood in stool. ? We elected to hold off on endoscopy at that time and wait at least 3 months till after her myocardial infarction. Since that time, she has undergone a surgical procedure for dialysis access in [place]. The patient required intubation and noted dysphagia for the first 2 weeks following that procedure. This dysphagia has since resolved. The patient is impaired with her activities of daily living and uses a scooter. She has a history of heart failure and has a history of undergoing a right sided congestive heart failure with fluid shafts. Her supervisor porcelain department is Dr. Cardona but she has had her most recent cardiac care at [facility] by Dr. Hunter ? The patient is being seen by me today at the request of Dr. Jameson Kamara MD for my opinion and advice regarding need for endoscopy given chronic and severe medical comorbidities. Dr. Claudio performed upper and lower endoscopy on 08/18/18. The patient was found to have gastritis with bleeding, ulcerations and erosions in the stomach. Colonoscopy showed diverticulosis, otherwise normal. Pathology demonstrated: MICROSCOPIC DIAGNOSIS Gastric antrum, biopsy: Mild chronic gastritis. RESULTS: ANTIBODY / CLONE RESULT H Pylori (polyclonal) negative These tests were developed and their performance characteristics determined by [facility]. They may not have been cleared or approved by the U.S. Food and Drug Administration. The FDA has determined that such clearance or approval is not necessary. INTERPRETATION: Antrum, biopsy: Negative for Helicobacter pylori organisms. AM:rg 08/22/18 The patient notes she has been taking pantoprazole and does think this is helping with her stomach. She notes she had actually been feeling much better overall until today-notes very upset stomach with nausea this morning. She notes she was initiated on a phosphorus binder at dialysis yesterday and wonders if her severe nausea is related to this, plans to contact dialysis center regarding this. PAST MEDICAL HISTORY Diagnosis Date - Arthritis - Atrial fibrillation ([facility]) - CAD (coronary artery disease) stents x9, defibrillator, CABG. Seeing Dr. Cardona - Cardiac defibrillator in place - Cardiomegaly - Carotid artery disease ([facility]) left - Chronic hypoxemic respiratory failure ([facility]) 07/01/2018 - Chronic kidney disease (CKD) stage G3b/A2, moderately decreased glomerular filtration rate (GFR) between 30-44 mL/min/1.73 square meter and albuminuria creatinine ratio between 30-299 mg/g ([facility]) Dr. Martin - COPD (chronic obstructive pulmonary disease) ([facility]) Dr. Cruz - Depression - Diabetes ([facility]) - Diabetic neuropathy ([facility]) - Edema - ESRD (end stage renal disease) on dialysis ([facility]) [facility], Dr. Martin - GERD (gastroesophageal reflux disease) - Gout with hyperuricemia - HH (hiatus hernia) - HOCM (hypertrophic obstructive cardiomyopathy) ([facility]) S/P Septal Myectomy in 2003. Now with LVEF 50% and mod/severe pulm HTN. - HTN (hypertension) - Hyperlipidemia - Morbid obesity with BMI of 40.0-44.9, adult ([facility]) - Presence of combination internal cardiac defibrillator (ICD) and pacemaker - Sleep apnea 2011 not on CPAP, unable to tolerate mask 02/2017 - SVT (supraventricular tachycardia) (HCC) NSVT and questionable VT in 2003 post op PAST SURGICAL HISTORY Procedure Laterality Date - CABG (1) VEIN GRAFT AND ARTERIAL GRAFT - CHOLECYSTECTOMY HX - DIALYSIS ACCESS SYSTEM - HEART SURGERY HX 07/18/2004 Septal myectomy and CABG x2 (DEBORAH-LAD, SVG-PDA). - HYSTERECTOMY HX - IANDD PERIANAL ABSCESS - PACEMAKER with defib - PAST SURGICAL HISTORY OF left breast nodule removed - PAST SURGICAL HISTORY OF skin lesions removed - STENT PLACEMENT coronary Current Outpatient Prescriptions: carvedilol (COREG) 3.125 mg tablet Take 1 tablet by mouth twice daily with meals. amiodarone (PACERONE) 200 mg tablet Take 1 tablet by mouth once daily. apixaban (ELIQUIS) 5 mg tab(s) Take 1 tablet by mouth twice daily. insulin aspart U-100 (NOVOLOG FLEXPEN U-100 INSULIN) 100 unit/mL inpn Using Sliding Scale: 150-209 1 unit, 210-269 2 units, 270- 329 3 units, 330-389 4 units, 390-449 5 units insulin glargine (LANTUS SOLOSTAR U-100 INSULIN) 100 unit/mL (3 mL) inpn Inject 50 Units subcutaneously every morning. insulin glargine (LANTUS SOLOSTAR U-100 INSULIN) 100 unit/mL (3 mL) inpn Inject 32 Units subcutaneously daily at bedtime. bacitracin zinc (ANTIBIOTIC, BACITRACIN ZINC,) 500 unit/gram ointment Apply 1 application to affected area twice daily. polyethylene glycol 3350 (MIRALAX) 17 gram/dose powder Use 1-2 times daily as needed for constipation. simvastatin (ZOCOR) 40 mg tablet Take 1 tablet by mouth every morning. isosorbide mononitrate ER (IMDUR) 30 mg 24 hr tablet Take 3 tablets by mouth once daily. pregabalin (LYRICA) 25 mg capsule Take 1 tablet PO daily with an additional 1 tablet PO after dialysis MWF metoclopramide HCl (REGLAN) 5 mg tablet Take 1 tablet by mouth three times daily. pantoprazole DR (PROTONIX) 40 mg tablet Take 1 tablet by mouth once daily. senna (SENNA) 8.6 mg tab Take 8.6 mg by mouth once daily. ondansetron (ZOFRAN) 4 mg tablet Take 4 mg by mouth every 8 hours as needed. ipratropium-albuterol (DUONEB) 0.5 mg-3 mg(2.5 mg base)/3 mL nebu Inhale 3 mL as instructed every 4 hours while awake. And prn for wheezing/shortness of breath. budesonide (PULMICORT) 0.5 mg/2 mL nebulizer solution Use 2 mL via nebulizer once daily. INHALE 2 ML BY NEBULIZER OVER 5-15 MINUTES EVERY 12 HOURS. nystatin (NYSTOP) powder Apply 1 application to affected area three times daily. guaiFENesin-dextromethorphan (ROBITUSSIN DM) 100-10 mg/5 mL syrup Take 5-10 mL by mouth every 6 hours as needed for Cough. nitroglycerin sublingual (NITROQUICK) 0.4 mg SL tablet Dissolve 1 tablet under the tongue every 5 minutes as needed. OXYGEN, HOME THERAPY, Inhale 2.5 L/min as instructed continuous. 3 L/min when leaves home. No current facility-administered medications for this visit. ALLERGIES: Aspirin; Bactrim [Sulfamethoxazole-Trimethoprim]; Latex; Penicillins; Tetracycline; Atorvastatin; Codeine; Dilaudid [Hydromorphone (Bulk)]; Meperidine; Pentazocine; Pioglitazone; Propoxyphene PERSONAL HISTORY: Social History Marital status: Spouse name: Years of education: Number of children: Social History Main Topics Smoking status: Former Smoker Packs/day: 2.50 Years: 43.00 Types: Cigarettes Start date: 1961 Quit date: 07/07/2004 Smokeless tobacco: Never Used Alcohol use: No Drug use: No Other Topics Concern Caffeine Concern Yes Comment:coffee 1 cup daily Special Diet No Comment:Regular Exercise No Comment:no unable, due to SOB x several months. Social History Narrative Patient and daughter live together. FAMILY HISTORY: FAMILY HISTORY Problem Relation Age of Onset - Hypertension Mother living at age 93, HTN - Heart Failure Mother [place] - Cancer Father age 71, lung cancer - Heart Attack Sister - COPD Brother - Heart Paternal Grandmother - Heart Paternal Grandfather - Heart Sister - Diabetes Sister - Heart Sister - Breast Cancer Sister - Diabetes Sister - Hypertension Brother - Diabetes Brother REVIEW OF SYSTEMS GENERAL: No weight loss, malaise or fevers HEENT: Negative for frequent or significant headaches, No changes in hearing or vision, no nose bleeds or other nasal problems NECK: Negative for lumps, goiter, pain and significant neck swelling GI: See HPI SKIN: Negative for lesions, rash, and itching PHYSICAL EXAMINATION: General: The patient is 77 year old female, well nourished, well hydrated in no acute distress. The patient is oriented to time, place, and person. VITALS: There were no vitals taken for this visit. There is no height or weight on file to calculate BMI. HEENT: Normal cephalic, ataumatic, pupils are equally round, sclera are anicteric, mucous membranes are moist, oropharynx is clear. Neck has no masses, asymmetry or lymphadenopathy. Respiratory: Clear to auscultation and percussion. Normal respiratory excursion and pattern. Cardiac: Examination is regular rate and rhythm. Abdominal exam: Soft, nontender, with no palpable masses. No hepatosplenomegaly. No palpable hernias. Extremities: no clubbing, cyanosis or edema. No adenopathy. LABORATORY VALUES: As Noted RADIOLOGIC STUDIES: As Noted Assessment IMPRESSION: gastritis with ulcerations, nausea and vomiting, heme positive stool PLAN: If the patient notes any problems or changes in bowel function, the patient should contact me immediately. Otherwise I recommend repeat EGD under MAC with Dr. Claudio in approximately 6 weeks to assess healing of ulcers. Patient verbalized understanding and is agreeable to this plan. The patient has medical comorbidities for which I plan to perform the procedure under monitored anesthetic care. Diagnoses: (K25.7) Chronic gastric ulcer without hemorrhage or perforation (primary encounter diagnosis) (R11.0) Nausea My findings have been communicated to Dr. Jameson Kamara MD via shared medical record. This note will be forwarded to Dr. Jameson Kamara MD. Return to Clinic: The patient is instructed to follow-up with me 1 week post operatively. MEGAN Rudolph Observed: 08/23/2018 Status: COMPLETED Source: [place] 9:00 AM [facility] REPOSITORY Office Visit (GENSWS) KEVENLUZ Franco ([id number]) 1940 F Date Time Provider Department 08/23/18 9:00 AM SEFERINO ALBERTS (PA) During your visit today, we recorded the following information about you: Seferino Alberts PA-C 08/23/2018 9:18 AM Signed -Continue Protonix -Repeat EGD in 6 weeks Seferino Alberts PA-C 08/23/2018 5:12 PM Signed HISTORY AND PHYSICAL Luz Franco Keven 1940 REFERRING PHYSICIAN: Jameson Kamara * CHIEF COMPLAINT: Post Op HPI: Luz is a patient I am following with Dr. Claudio for heme positive stool. Per Dr. Claudio's HANDP from 08/11/18: The patient is a 77 year old female referred for endoscopy. Luz notes , denies abdominal pain area did the patient notes episodic diarrhea and constipation. More recently, the patient has had more episodes of diarrhea. While denying true pain. She does note some abdominal cramping and periumbilical area. ? The patient denies nausea or vomiting. She denies hematemesis. She denies melena or hematochezia. The patient had a recent stool for occult blood which was positive. ? Patient has a recent history of dysphagia. She underwent upper endoscopy with esophageal dilatation on's December 31, 2017. This was performed in [place]. The patient was found to have a 3 cm hiatal hernia irregular GE junction and a shop. He is wearing that was dilated. ? ? Pathology returned as chronic active gastritis with H. pylori- like organisms. Negative for dysplasia on the stomach, biopsy, gastric biopsy demonstrated reactive gastric mucosa, negative for metaplasia or dysplasia. Esophageal biopsy returned as active inflammation. H. pylori antibody was positive. The patient was treated with eradication for H. pylori. She's been maintained on proton pump inhibitors. ? The patient had colonoscopy performed she recalls 5 years previously and [place]. She is uncertain what the findings were or what the recommended follow-up were. ? Has extensive past medical history - most recently, the patient had a non-ST segment myocardial infarction on May 13. She underwent cardiac catheterization which demonstrated an occluded venous graft, a patent VU graft and a 60% stenosis of the mid LAD. ? The patient also has a history of supraventricular tachycardia, sleep apnea, morbid obesity, hypertrophic obstructive cardiomyopathy, diabetic neuropathy, diabetes, COPD, chronic renal failure on dialysis with failed dialysis access. Carotid artery disease pacer defibrillator in place. ? She is referred for endoscopy due to blood in stool. ? We elected to hold off on endoscopy at that time and wait at least 3 months till after her myocardial infarction. Since that time, she has undergone a surgical procedure for dialysis access in [place]. The patient required intubation and noted dysphagia for the first 2 weeks following that procedure. This dysphagia has since resolved. The patient is impaired with her activities of daily living and uses a scooter. She has a history of heart failure and has a history of undergoing a right sided congestive heart failure with fluid shafts. Her supervisor porcelain department is Dr. Cardona but she has had her most recent cardiac care at [facility] by Dr. Hunter ? The patient is being seen by me today at the request of Dr. Jameson Kamara MD for my opinion and advice regarding need for endoscopy given chronic and severe medical comorbidities. Dr. Claudio performed upper and lower endoscopy on 08/18/18. The patient was found to have gastritis with bleeding, ulcerations and erosions in the stomach. Colonoscopy showed diverticulosis, otherwise normal. Pathology demonstrated: MICROSCOPIC DIAGNOSIS Gastric antrum, biopsy: Mild chronic gastritis. RESULTS: ANTIBODY / CLONE RESULT H Pylori (polyclonal) negative These tests were developed and their performance characteristics determined by [facility]. They may not have been cleared or approved by the U.S. Food and Drug Administration. The FDA has determined that such clearance or approval is not necessary. INTERPRETATION: Antrum, biopsy: Negative for Helicobacter pylori organisms. AM:rg 08/22/18 The patient notes she has been taking pantoprazole and does think this is helping with her stomach. She notes she had actually been feeling much better overall until today-notes very upset stomach with nausea this morning. She notes she was initiated on a phosphorus binder at dialysis yesterday and wonders if her severe nausea is related to this, plans to contact dialysis center regarding this. PAST MEDICAL HISTORY Diagnosis Date - Arthritis - Atrial fibrillation (HCC) - CAD (coronary artery disease) stents x9, defibrillator, CABG. Seeing Dr. Cardona - Cardiac defibrillator in place - Cardiomegaly - Carotid artery disease ([facility]) left - Chronic hypoxemic respiratory failure ([facility]) 07/01/2018 - Chronic kidney disease (CKD) stage G3b/A2, moderately decreased glomerular filtration rate (GFR) between 30-44 mL/min/1.73 square meter and albuminuria creatinine ratio between 30-299 mg/g ([facility]) Dr. Martin - COPD (chronic obstructive pulmonary disease) ([facility]) Dr. Cruz - Depression - Diabetes ([facility]) - Diabetic neuropathy ([facility]) - Edema - ESRD (end stage renal disease) on dialysis ([facility]) [facility], Dr. Martin - GERD (gastroesophageal reflux disease) - Gout with hyperuricemia - HH (hiatus hernia) - HOCM (hypertrophic obstructive cardiomyopathy) ([facility]) S/P Septal Myectomy in 2003. Now with LVEF 50% and mod/severe pulm HTN. - HTN (hypertension) - Hyperlipidemia - Morbid obesity with BMI of 40.0-44.9, adult ([facility]) - Presence of combination internal cardiac defibrillator (ICD) and pacemaker - Sleep apnea 2011 not on CPAP, unable to tolerate mask 02/2017 - SVT (supraventricular tachycardia) ([facility]) NSVT and questionable VT in 2003 post op PAST SURGICAL HISTORY Procedure Laterality Date - CABG (1) VEIN GRAFT AND ARTERIAL GRAFT - CHOLECYSTECTOMY HX - DIALYSIS ACCESS SYSTEM - HEART SURGERY HX 07/18/2004 Septal myectomy and CABG x2 (DEBORAH-LAD, SVG-PDA). - HYSTERECTOMY HX - IANDD PERIANAL ABSCESS - PACEMAKER with defib - PAST SURGICAL HISTORY OF left breast nodule removed - PAST SURGICAL HISTORY OF skin lesions removed - STENT PLACEMENT coronary Current Outpatient Prescriptions: carvedilol (COREG) 3.125 mg tablet Take 1 tablet by mouth twice daily with meals. amiodarone (PACERONE) 200 mg tablet Take 1 tablet by mouth once daily. apixaban (ELIQUIS) 5 mg tab(s) Take 1 tablet by mouth twice daily. insulin aspart U-100 (NOVOLOG FLEXPEN U-100 INSULIN) 100 unit/mL inpn Using Sliding Scale: 150-209 1 unit, 210-269 2 units, 270-329 3 units, 330-389 4 units, 390-449 5 units insulin glargine (LANTUS SOLOSTAR U-100 INSULIN) 100 unit/mL (3 mL) inpn Inject 50 Units subcutaneously every morning. insulin glargine (LANTUS SOLOSTAR U-100 INSULIN) 100 unit/mL (3 mL) inpn Inject 32 Units subcutaneously daily at bedtime. bacitracin zinc (ANTIBIOTIC, BACITRACIN ZINC,) 500 unit/gram ointment Apply 1 application to affected area twice daily. polyethylene glycol 3350 (MIRALAX) 17 gram/dose powder Use 1-2 times daily as needed for constipation. simvastatin (ZOCOR) 40 mg tablet Take 1 tablet by mouth every morning. isosorbide mononitrate ER (IMDUR) 30 mg 24 hr tablet Take 3 tablets by mouth once daily. pregabalin (LYRICA) 25 mg capsule Take 1 tablet PO daily with an additional 1 tablet PO after dialysis MWF metoclopramide HCl (REGLAN) 5 mg tablet Take 1 tablet by mouth three times daily. pantoprazole DR (PROTONIX) 40 mg tablet Take 1 tablet by mouth once daily. senna (SENNA) 8.6 mg tab Take 8.6 mg by mouth once daily. ondansetron (ZOFRAN) 4 mg tablet Take 4 mg by mouth every 8 hours as needed. ipratropium-albuterol (DUONEB) 0.5 mg-3 mg(2.5 mg base)/3 mL nebu Inhale 3 mL as instructed every 4 hours while awake. And prn for wheezing/shortness of breath. budesonide (PULMICORT) 0.5 mg/2 mL nebulizer solution Use 2 mL via nebulizer once daily. INHALE 2 ML BY NEBULIZER OVER 5-15 MINUTES EVERY 12 HOURS. nystatin (NYSTOP) powder Apply 1 application to affected area three times daily. guaiFENesin-dextromethorphan (ROBITUSSIN DM) 100-10 mg/5 mL syrup Take 5-10 mL by mouth every 6 hours as needed for Cough. nitroglycerin sublingual (NITROQUICK) 0.4 mg SL tablet Dissolve 1 tablet under the tongue every 5 minutes as needed. OXYGEN, HOME THERAPY, Inhale 2.5 L/min as instructed continuous. 3 L/min when leaves home. No current facility-administered medications for this visit. ALLERGIES: Aspirin; Bactrim [Sulfamethoxazole-Trimethoprim]; Latex; Penicillins; Tetracycline; Atorvastatin; Codeine; Dilaudid [Hydromorphone (Bulk)]; Meperidine; Pentazocine; Pioglitazone; Propoxyphene PERSONAL HISTORY: Social History Marital status: Spouse name: Years of education: Number of children: Social History Main Topics Smoking status: Former Smoker Packs/day: 2.50 Years: 43.00 Types: Cigarettes Start date: 1961 Quit date: 07/07/2004 Smokeless tobacco: Never Used Alcohol use: No Drug use: No Other Topics Concern Caffeine Concern Yes Comment:coffee 1 cup daily Special Diet No Comment:Regular Exercise No Comment:no unable, due to SOB x several months. Social History Narrative Patient and daughter live together. FAMILY HISTORY: FAMILY HISTORY Problem Relation Age of Onset - Hypertension Mother living at age 93, HTN - Heart Failure Mother [place] - Cancer Father age 71, lung cancer - Heart Attack Sister - COPD Brother - Heart Paternal Grandmother - Heart Paternal Grandfather - Heart Sister - Diabetes Sister - Heart Sister - Breast Cancer Sister - Diabetes Sister - Hypertension Brother - Diabetes Brother REVIEW OF SYSTEMS GENERAL: No weight loss, malaise or fevers HEENT: Negative for frequent or significant headaches, No changes in hearing or vision, no nose bleeds or other nasal problems NECK: Negative for lumps, goiter, pain and significant neck swelling GI: See HPI SKIN: Negative for lesions, rash, and itching PHYSICAL EXAMINATION: General: The patient is 77 year old female, well nourished, well hydrated in no acute distress. The patient is oriented to time, place, and person. VITALS: There were no vitals taken for this visit. There is no height or weight on file to calculate BMI. HEENT: Normal cephalic, ataumatic, pupils are equally round, sclera are anicteric, mucous membranes are moist, oropharynx is clear. Neck has no masses, asymmetry or lymphadenopathy. Respiratory: Clear to auscultation and percussion. Normal respiratory excursion and pattern. Cardiac: Examination is regular rate and rhythm. Abdominal exam: Soft, nontender, with no palpable masses. No hepatosplenomegaly. No palpable hernias. Extremities: no clubbing, cyanosis or edema. No adenopathy. LABORATORY VALUES: As Noted RADIOLOGIC STUDIES: As Noted Assessment IMPRESSION: gastritis with ulcerations, nausea and vomiting, heme positive stool PLAN: If the patient notes any problems or changes in bowel function, the patient should contact me immediately. Otherwise I recommend repeat EGD under MAC with Dr. Claudio in approximately 6 weeks to assess healing of ulcers. Patient verbalized understanding and is agreeable to this plan. The patient has medical comorbidities for which I plan to perform the procedure under monitored anesthetic care. Diagnoses: (K25.7) Chronic gastric ulcer without hemorrhage or perforation (primary encounter diagnosis) (R11.0) Nausea My findings have been communicated to Dr. Jameson Kamara MD via shared medical record. This note will be forwarded to Dr. Jameson Kamara MD. Return to Clinic: The patient is instructed to follow-up with me 1 week post operatively. Seferino Alberts PA-C Referring Provider: JAMESON KAMARA) [[id number]] Allergies As of Date: 08/23/2018 Noted Allergy Reaction ASPIRIN 01/20/2018 14 - Other: See Comments Comments: Patient states that she bled out every orifice, sts not allowed to take it at all. Patient states she was bleeding out of nose and mouth after one dose. BACTRIM (SULFAMETHOXAZOLE-TRIMETH*05/17/2017 14 - Other: See Comments Comments: My throat swells up. LATEX 05/17/2017 2 - Rash 9 - Itching Comments: Itching and welts. No wheezing or shortness of breath. PENICILLINS 07/14/2004 2 - Rash 9 - Itching Comments: Tolerated ceftriaxone during 11/2017 admission and cefepime during 12/2017 admission TETRACYCLINE 09/29/2010 2 - Rash 8 - GI Upset Comments: Emesis and diarrhea. ATORVASTATIN 05/17/2017 2 - Rash CODEINE 05/17/2017 14 - Other: See Comments Comments: Numbness DILAUDID (HYDROMORPHONE (BULK)) 05/17/2017 1 - Mental Status Change MEPERIDINE 07/14/2004 PENTAZOCINE 07/14/2004 PIOGLITAZONE 05/17/2017 16 - Unknown PROPOXYPHENE 07/14/2004 Date Reviewed: 08/23/2018 Reviewed by: Madelyn John LPN - Fully Assessed Reason for Visit: Post Op [174] Primary Visit Diagnosis:Chronic gastric ulcer without hemorrhage or perforation [K25.7] Other Visit Diagnosis:Nausea [R11.0] Prescriptions as of 08/23/2018 Sig: CARVEDILOL 3.125 MG TABLET Take 1 tablet by mouth twice * AMIODARONE 200 MG TABLET Take 1 tablet by mouth once d* APIXABAN 5 MG TABLET Take 1 tablet by mouth twice * INSULIN ASPART U-100 100 UNI* Using Sliding Scale: 150-209* INSULIN GLARGINE (U-100) 100 * Inject 50 Units subcutaneousl* INSULIN GLARGINE (U-100) 100 * Inject 32 Units subcutaneousl* BACITRACIN ZINC 500 UNIT/GRAM* Apply 1 application to affect* POLYETHYLENE GLYCOL 3350 17 G* Use 1-2 times daily as needed* SIMVASTATIN 40 MG TABLET Take 1 tablet by mouth every * ISOSORBIDE MONONITRATE ER 30 * Take 3 tablets by mouth once * PREGABALIN 25 MG CAPSULE Take 1 tablet PO daily with a* METOCLOPRAMIDE 5 MG TABLET Take 1 tablet by mouth three * PANTOPRAZOLE 40 MG TABLET,DEL* Take 1 tablet by mouth once d* SENNOSIDES 8.6 MG TABLET Take 8.6 mg by mouth once carlos* ONDANSETRON HCL 4 MG TABLET Take 4 mg by mouth every 8 ho* IPRATROPIUM-ALBUTEROL 0.5 MG-* Inhale 3 mL as instructed leanne* BUDESONIDE 0.5 MG/2 ML SUSPEN* Use 2 mL via nebulizer once d* NYSTATIN 100,000 UNIT/GRAM TO* Apply 1 application to affect* DEXTROMETHORPHAN-GUAIFENESIN * Take 5-10 mL by mouth every 6* NITROGLYCERIN 0.4 MG SUBLINGU* Dissolve 1 tablet under the t* OXYGEN (HOME THERAPY) Inhale 2.5 L/min as instructe* Problem List As Of Date 08/23/2018 Noted Resolved HOCM (hypertrophic obstructive cardiomyopathy) * 01/23/2018 Priority: I More... SVT (supraventricular tachycardia) (HCC) [I47.1] 01/21/2018 More... Carotid artery disease (HCC) [I77.9] 01/22/2018 CAD (coronary artery disease) [I25.10] Priority: E More... Hypertension [I10] Priority: L More... Hyperlipidemia [E78.5] Pneumonia [J18.9] 10/27/2017 More... COPD (chronic obstructive pulmonary disease) (H* Priority: F More... Sleep apnea [G47.30] Priority: I More... HH (hiatus hernia) [K44.9] 01/21/2018 GERD (gastroesophageal reflux disease) [K21.9] Priority: K More... More... Arthritis [M19.90] Numbness and tingling of right leg [R20.0, R20.* 01/21/2018 Depression [F32.9] Atrial fibrillation (HCC) [I48.91] INVALID FOR* Priority: C More... Uncontrolled type 2 diabetes mellitus with stag*INVALID FOR* Priority: H More... More... More... Heart failure, systolic, acute (HCC) [I50.21] INVALID FOR*01/21/2018 More... Obesity [E66.09] INVALID FOR* Priority: M More... Gout [M10.9] Pacemaker [Z95.0] Priority: D More... Chronic combined systolic and diastolic CHF (co*INVALID FOR* Priority: B More... Elevated troponin [R74.8] INVALID FOR*01/22/2018 Priority: G More... Pulmonary hypertension (HCC) [I27.20] INVALID FOR* Oral thrush [B37.0] INVALID FOR*01/21/2018 Hyponatremia [E87.1] INVALID FOR* Priority: J More... Hyperkalemia [E87.5] INVALID FOR*01/22/2018 Priority: J Chest pain in adult [R07.9] INVALID FOR*02/12/2018 Priority: A More... Acute renal failure superimposed on stage 3 chr*INVALID FOR* Priority: A More... Obesity, Class II, BMI 35-39.9 [E66.9] INVALID FOR* ESRD on dialysis (HCC) [N18.6, Z99.2] INVALID FOR* More... Chronic hypoxemic respiratory failure (HCC) [J9*INVALID FOR* Other instructions from your clinician: -Continue Protonix -Repeat EGD in 6 weeks Follow-up and Disposition History Recorded Encounter Status:Closed by SEFERINO ALBERTS PA-C on 08/23/18 PROGRESS Observed: 08/22/2018 Status: COMPLETED Source: [place] 6:28 PM [facility] REPOSITORY HNO ID: [id number] Author: Dina Claudio Service: (none) Author Type: Physician Type: Progress Notes Filed: 08/22/2018 6:35 PM Note Text: OPERATIVE NOTATION FOR [facility] SURGICAL PROCEDURE. August 18, 2018 Luz Baca 1940 [id number] female PROCEDURE: EGD WITH BIOPSY - [id number] and COLONOSCOPY - [id number] SURGEON: Ellyn Claudio M.D. FACS VMWARE ENGINEER: None DEPT: WQ PROVIDER: [id number] Claudio MD POS: [id number] DIAGNOSIS: (R19.5) Occult GI bleeding (primary encounter diagnosis) ASA CLASS: 3 - Severe FINDINGS: gastritis, diverticulosis COMPLICATIONS: None PMHx - PAST MEDICAL HISTORY Diagnosis Date - Arthritis - Atrial fibrillation ([facility]) - CAD (coronary artery disease) stents x9, defibrillator, CABG. Seeing Dr. Cardona - Cardiac defibrillator in place - Cardiomegaly - Carotid artery disease ([facility]) left - Chronic hypoxemic respiratory failure ([facility]) 07/01/2018 - Chronic kidney disease (CKD) stage G3b/A2, moderately decreased glomerular filtration rate (GFR) between 30-44 mL/min/1.73 square meter and albuminuria creatinine ratio between 30-299 mg/g ([facility]) Dr. Martin - COPD (chronic obstructive pulmonary disease) ([facility]) Dr. Cruz - Depression - Diabetes ([facility]) - Diabetic neuropathy ([facility]) - Edema - ESRD (end stage renal disease) on dialysis ([facility]) [facility], Dr. Martin - GERD (gastroesophageal reflux disease) - Gout with hyperuricemia - HH (hiatus hernia) - HOCM (hypertrophic obstructive cardiomyopathy) ([facility]) S/P Septal Myectomy in 2003. Now with LVEF 50% and mod/severe pulm HTN. - HTN (hypertension) - Hyperlipidemia - Morbid obesity with BMI of 40.0-44.9, adult ([facility]) - Presence of combination internal cardiac defibrillator (ICD) and pacemaker - Sleep apnea 2011 not on CPAP, unable to tolerate mask 02/2017 - SVT (supraventricular tachycardia) ([facility]) NSVT and questionable VT in 2003 post op COMORBIDITIES - Obesity, Chronic Pulmonary, COPD, Coagulopathy, Coumadin Tx, Anemia, CHF, CAD, HTN, Cor Pulmonale, Hx Cardiac Surgery and NE Post Op Occurrences - None Wound Classification - Contaminated Operative note dictated in the [facility] dictation system. Dina Claudio MD DISCHARGE INSTRUCTION Observed: 08/18/2018 Status: F Source: [place] 7:55 AM [facility] REPOSITORY [facility] Medical Records Department [address] [place] [address] Instructions for Home/Discharge Instructions 08/18/18 0754 MR#: [id number] Acct: [id number] Name: LUZ BACA Rep #: [id number] : 1940 77 From: Dina Claudio MD PCP: Mook Kamara MD Status: ADM JUAN DANIEL You will use the following diet at home:: Renal (restricted protein/sodium) Discharge Activity: Return to Normal Activity Call your doctor if your incision/area has: Increased Pain/ Swelling Allergies/Adverse Reactions: Allergies latex Allergy (Verified 06/14/18 10:42) Anaphylaxis meperidine [From Demerol] Allergy (Verified 06/14/18 10:42) Hives Penicillins Allergy (Verified 06/14/18 10:42) Hives Tetracyclines Allergy (Verified 06/14/18 10:42) Hives aspirin Adverse Reaction (Verified 06/14/18 10:42) Unknown atorvastatin Adverse Reaction (Verified 06/14/18 10:42) Unknown codeine Adverse Reaction (Verified 06/14/18 10:42) Unknown hydromorphone [From Dilaudid] Adverse Reaction (Verified 06/14/18 10:42) Unknown pentazocine Adverse Reaction (Verified 06/14/18 10:42) Unknown pioglitazone Adverse Reaction (Verified 06/14/18 10:42) Unknown propoxyphene Adverse Reaction (Verified 06/14/18 10:42) Unknown sulfamethoxazole [From Bactrim] Adverse Reaction (Verified 06/14/18 10:42) Unknown trimethoprim [From Bactrim] Adverse Reaction (Verified 06/14/18 10:42) Unknown Medications to take at Discharge Nitroglycerin 0.4 mg SL Q5M PRN 12/06/17 Simvastatin 40 mg PO DAILY 12/06/17 Carvedilol [Coreg (Beta Lenny)] 3.125 mg PO BID 04/21/18 Insulin Glargine,Hum.rec.anlog [Lantus] 32 unit SQ QHS 04/22/18 Insulin Glargine,Hum.rec.anlog [Lantus] 50 unit SQ BREAKFAST 04/22/18 Amiodarone HCl 200 mg PO DAILY 05/11/18 Ondansetron HCl [Zofran] 4 mg PO Q8H PRN PRN 05/11/18 Sennosides [Senna] 8.6 mg PO DAILY 05/11/18 Apixaban [Eliquis] 5 mg PO BID #0 05/13/18 Insulin Aspart [Novolog Flexpen] 0 - 100 units SC 4X/DAY 05/19/18 Ipratropium/Albuterol Sulfate [Duoneb] 3 ml INHALATION Q4H PRN PRN 05/19/18 isosorbide mononitrate ER 30 mg tablet,extended release 24 hr 90 mg PO DAILY 06/14/18 Bacitracin 1 applic TOPICAL BID 08/17/18 Budesonide 2 ml INHALATION Q12H 08/17/18 Metoclopramide [Metoclopramide HCl] 5 mg PO TID 08/17/18 Nystatin Powder 1 applic TOPICAL TID 08/17/18 Polyethylene Glycol 3350 [Miralax] 1 packet PO BID PRN 08/17/18 Pregabalin [Lyrica] 25 mg PO DAILY 08/17/18 Robitussin Dm 5 - 10 ml PO Q6H PRN 08/17/18 Pantoprazole Sodium 40 mg PO BID #0 08/18/18 Primary Care Physician: Mook Kamara MD [Primary Care Provider] - Test Results: Test results from this visit will be discussed in further detail at your follow-up appointment, if applicable. Please Follow Up With: Dina Claudio MD When: in one week 08/18/18 0755 <Electronically signed by Dina Claudio MD> Date Dina Claudio MD CC: Mook Kamara MD OPERATIVE REPORT - Observed: 08/18/2018 Status: F Source: [facility] 7:45 AM [facility] REPOSITORY [facility] Medical Records Department [address] [place] [address] Operative Report - Endoscopy MR#: [id number] Acct: [id number] Name: LUZ BACA Rep #: [id number] : 1940 77 From: Dina Claudio MD PCP: Mook Kamara MD Status: ADM JUAN DANIEL Patient Name: Luz Baca Procedure Date: 08/18/2018 7:18 AM Date of : 1940 Age: 77 Procedure: Colonoscopy Indications: Heme positive stool Providers: Dina Claudio MD Referring MD: Dina Claudio MD Medicines: Monitored Anesthesia Care Patient Profile: This is a 77 year old female. Refer to note in patient chart for documentation of history and physical. Patient has symptoms. Last Colonoscopy: date unknown. Complications: No immediate complications. Procedure: Pre-Anesthesia Assessment: - Prior to the procedure, a History and Physical was performed, and patient medications and allergies were reviewed. The patient is competent. The risks and benefits of the procedure and the sedation options and risks were discussed with the patient. All questions were answered and informed consent was obtained. Patient identification and proposed procedure were verified by the physician, the nurse and the computer applications engineer in the procedure room. Mental Status Examination: alert and oriented. Airway Examination: normal oropharyngeal airway and neck mobility. Respiratory Examination: clear to auscultation. CV Examination: normal. Prophylactic Antibiotics: The patient does not require prophylactic antibiotics. Prior Anticoagulants: The patient has taken no previous anticoagulant or antiplatelet agents. ASA Grade Assessment: IV - A patient with severe systemic disease that is a constant threat to life. After reviewing the risks and benefits, the patient was deemed in satisfactory condition to undergo the procedure. The anesthesia plan was to use monitored anesthesia care (MAC). Immediately prior to administration of medications, the patient was re-assessed for adequacy to receive sedatives. The heart rate, respiratory rate, oxygen saturations, blood pressure, adequacy of pulmonary ventilation, and response to care were monitored throughout the procedure. The physical status of the patient was re-assessed after the procedure. After I obtained informed consent, the scope was passed under direct vision. Throughout the procedure, the patient's blood pressure, pulse, and oxygen saturations were monitored continuously. The colonoscope was introduced through the anus and advanced to the cecum, identified by the ileocecal valve. The colonoscopy was performed without difficulty. The patient tolerated the procedure well. The quality of the bowel preparation was good. Scope In: 7:21:09 AM Scope Withdrawal Time 0 hours 3 minutes 35 seconds Scope Out: 7:33:48 AM Total Procedure Duration Time 0 hours 12 minutes 39 seconds Findings: The perianal and digital rectal examinations were normal. Multiple medium-mouthed diverticula were found in the sigmoid colon. The exam was otherwise without abnormality. The retroflexed view of the distal rectum and anal verge was normal and showed no anal or rectal abnormalities. Impression: - Diverticulosis in the sigmoid colon. - The examination was otherwise normal. - The distal rectum and anal verge are normal on retroflexion view. - No specimens collected. Recommendation: - Discharge patient to home. - Resume previous diet. - Continue present medications. - Repeat colonoscopy in 10 years for screening purposes. Procedure Code(s): --- Professional --- 49813, Colonoscopy, flexible; diagnostic, including collection of specimen(s) by brushing or washing, when performed (separate procedure) CPT copyright 2017 [employer]. All rights reserved. The codes documented in this report are preliminary and upon second time worker review may be revised to meet current compliance requirements. Dina Claudio MD 08/18/2018 7:44:56 AM This report has been signed electronically. Number of Addenda: 0 Note Initiated On: 08/18/2018 7:18 AM 08/18/18 0745 Date Dina Claudio MD Cosigner Signature: Date (if indicated) CC: Mook Kamara MD; Dina Claudio MD Date Dictated: 08/18/1818 Date Transcribed: Service Delivery Supervisor: BLACK Signed OPERATIVE REPORT - Observed: 08/18/2018 Status: F Source: [place] [facility] 7:43 AM [facility] REPOSITORY [facility] Medical Records Department [address] [place] [address] Operative Report - Endoscopy MR#: [id number] Acct: [id number] Name: LUZ BACA Rep #: [id number] : 1940 77 From: Dina Claudio MD PCP: Mook Kamara MD Status: ADM JUAN DANIEL Patient Name: Luz Baca Procedure Date: 08/18/2018 6:56 AM Date of : 1940 Age: 77 Procedure: Upper GI endoscopy Indications: Heme positive stool Providers: Dina Claudio MD Referring MD: Dina Claudio MD Medicines: Monitored Anesthesia Care Patient Profile: This is a 77 year old female. Refer to note in patient chart for documentation of history and physical. Patient has symptoms. Complications: No immediate complications. Procedure: Pre-Anesthesia Assessment: - Prior to the procedure, a History and Physical was performed, and patient medications and allergies were reviewed. The patient is competent. The risks and benefits of the procedure and the sedation options and risks were discussed with the patient. All questions were answered and informed consent was obtained. Patient identification and proposed procedure were verified by the physician, the nurse and the computer applications engineer in the procedure room. Mental Status Examination: alert and oriented. Airway Examination: normal oropharyngeal airway and neck mobility. Respiratory Examination: clear to auscultation. CV Examination: normal. Prophylactic Antibiotics: The patient does not require prophylactic antibiotics. Prior Anticoagulants: The patient has taken no previous anticoagulant or antiplatelet agents. ASA Grade Assessment: IV - A patient with severe systemic disease that is a constant threat to life. After reviewing the risks and benefits, the patient was deemed in satisfactory condition to undergo the procedure. The anesthesia plan was to use monitored anesthesia care (MAC). Immediately prior to administration of medications, the patient was re-assessed for adequacy to receive sedatives. The heart rate, respiratory rate, oxygen saturations, blood pressure, adequacy of pulmonary ventilation, and response to care were monitored throughout the procedure. The physical status of the patient was re-assessed after the procedure. After obtaining informed consent, the endoscope was passed under direct vision. Throughout the procedure, the patient's blood pressure, pulse, and oxygen saturations were monitored continuously. The gastroscope was introduced through the mouth, and advanced to the jejunum. The upper GI endoscopy was accomplished without difficulty. The patient tolerated the procedure well. Scope In: 7:13:32 AM Scope Out: 7:17:18 AM Total Procedure Duration Time 0 hours 3 minutes 46 seconds Findings: The examined jejunum was normal. The examined duodenum was normal. Localized moderate inflammation with hemorrhage characterized by erosions and shallow ulcerations was found in the gastric antrum. Biopsies were taken with a cold forceps for Helicobacter pylori testing using PyloriTek test. Biopsies were taken with a cold forceps for histology. The exam of the stomach was otherwise normal. The examined esophagus was normal. Impression: - Normal examined jejunum. - Normal examined duodenum. - Gastritis with hemorrhage. Biopsied. - Normal esophagus. Recommendation: - Continue present medications. Procedure Code(s): --- Professional --- 81338, Esophagogastroduodenoscopy, flexible, transoral; with biopsy, single or multiple CPT copyright 2017 [employer]. All rights reserved. The codes documented in this report are preliminary and upon second time worker review may be revised to meet current compliance requirements. Dina Claudio MD 08/18/2018 7:42:51 AM This report has been signed electronically. Number of Addenda: 0 Note Initiated On: 08/18/2018 6:56 AM 08/18/18 0742 Date Dina Claudio MD Cosigner Signature: Date (if indicated) CC: Mook Kamara MD; Dina Claudio MD Date Dictated: 08/18/18 0656 Date Transcribed: Service Delivery Supervisor: BLACK Signed HISTORY AND PHYSICAL Observed: 08/18/2018 Status: F Source: [place] [facility] 7:00 AM [facility] REPOSITORY [facility] Medical Records Department [address] [place] [address] History and Physical 08/18/18 0654 MR#: [id number] Acct: [id number] Name: LUZ BACA Rep #: [id number] : 1940 77 From: Dina Claudio MD PCP: Mook Kamara MD Status: ADM JUAN DANIEL Y Location: [address] History and Physical Date of Admission: 08/18/18 HISTORY AND PHYSICAL Luz Baca 1940 REFERRING PHYSICIAN: Adriel Pringle (Elías), Ebonie* CHIEF COMPLAINT: New Patient (positive occult stool) HPI: The patient is a 77 year old female referred for endoscopy. Luz notes , denies abdominal pain area did the patient notes episodic diarrhea and constipation. More recently, the patient has had more episodes of diarrhea. While denying true pain. She does note some abdominal cramping and periumbilical area. The patient denies nausea or vomiting. She denies hematemesis. She denies melena or hematochezia. The patient had a recent stool for occult blood which was positive. Patient has a recent history of dysphagia. She underwent upper endoscopy with esophageal dilatation on's December 31, 2017. This was performed in [place]. The patient was found to have a 3 cm hiatal hernia irregular GE junction and a shop. He is wearing that was dilated. Pathology returned as chronic active gastritis with H. pylori- like organisms. Negative for dysplasia on the stomach, biopsy, gastric biopsy demonstrated reactive gastric mucosa, negative for metaplasia or dysplasia. Esophageal biopsy returned as active inflammation. H. pylori antibody was positive. The patient was treated with eradication for H. pylori. She's been maintained on proton pump inhibitors. The patient had colonoscopy performed she recalls 5 years previously and [place]. She is uncertain what the findings were or what the recommended follow- up were. Has extensive past medical history - most recently, the patient had a non-ST segment myocardial infarction on May 13. She underwent cardiac catheterization which demonstrated an occluded venous graft, a patent VU graft and a 60% stenosis of the mid LAD. The patient also has a history of supraventricular tachycardia, sleep apnea, morbid obesity, hypertrophic obstructive cardiomyopathy, diabetic neuropathy, diabetes, COPD, chronic renal failure on dialysis with failed dialysis access. Carotid artery disease pacer defibrillator in place. She is referred for endoscopy due to blood in stool. We elected to hold off on endoscopy at that time and wait at least 3 months till after her myocardial infarction. Since that time, she has undergone a surgical procedure for dialysis access in [place]. The patient required intubation and noted dysphagia for the first 2 weeks following that procedure. This dysphagia has since resolved. The patient is impaired with her activities of daily living and uses a scooter. She has a history of heart failure and has a history of undergoing a right sided congestive heart failure with fluid shafts. Her supervisor porcelain department is Dr. Cardona but she has had her most recent cardiac care at [facility] by Dr. Hunter The patient is being seen by me today at the request of Dr. Jameson Kamara MD for my opinion and advice regarding need for endoscopy given chronic and severe medical comorbidities. c PAST MEDICAL HISTORY c PAST MEDICAL HISTORY Diagnosis Date Arthritis Atrial fibrillation ([facility]) CAD (co ronary artery disease) stents x9, defibrillator, CABG. Seeing Dr. Cardona Cardiac defibr illator in place Cardiomegaly Carotid artery disease ([facility]) left Chronic hypox emic respiratory failure ([facility]) 07/01/2018 Chronic kidney disease (CKD) stage G3b/A2, moderate ly decreased glomerular filtration rate (GFR) between 30-44 mL/min/1.73 square meter and albumi lise creatinine ratio between 30-299 mg/g ([facility]) Dr. Martin COPD (chronic obstructive pulmonary disease) ([facility])Dr. Cruz Depression Diabetes ([facility]) Diabetic neuropathy ([facility]) Edema ESRD (end stage renal disease) on dialysis ([facility]) MWF, Dr. Martin GERD (gastroesophageal reflux disease) Gout with hyperuricemia HH (hiatus hernia) HOCM (hypertrophic obstructive cardiomyopathy) ([facility]) S/P Septal Myectomy in 2003. N ow with LVEF 50% and mod/severe pulm HTN.HTN (hypertension) Hyperlipidemia Morbid obe sity with BMI of 40.0-44.9, adult ([facility]) Presence of combination internal cardiac defibrill ator (ICD) and pacemaker Sleep apnea 2011not on CPAP, unable to tolerate mask 02/2017 SV T (supraventricular tachycardia) ([facility]) NSVT and questionable VT in 2003 post op c PAST SURGICAL HISTORY c PAST SURGICAL HISTORY Procedure Laterality Date CABG (1) VEIN GRAFT AND ARTERIAL GRAFT CHOLECYSTECTOMY HX DIALYSIS ACCESS SYSTEM HEART SURGERY HX 07/18/2004 Sept al myectomy and CABG x2 (DEBORAH-LAD, SVG-PDA). HYSTERECTOMY HX I AND D PERIANAL ABSCESS PACEMAKER with defib PAST SURGICAL HISTORY OF left breast nodule removed PAST SURGICAL HISTORY OF skin lesions removed STENT PLACEMENT coronary c CURRENT MEDICATIONS c Current Outpatient Prescriptions: apixaban (ELIQUIS) 5 mg tab(s) Take 1 tablet by mouth twi ce daily. insulin aspart U-100 (NOVOLOG FLEXPEN U-100 INSULIN) 100 unit/mL inpn Using Sliding Scale: 150-209 1 unit, 210-269 2 units, 270-329 3 units, 330-389 4 units, 390-449 5 units insulin glargine (LANTUS SOLOSTAR U-100 INSULIN) 100 unit/mL (3 mL) inpn Inject 50 Units subc utaneously every morning. insulin glargine (LANTUS SOLOSTAR U-100 INSULIN) 100 unit/mL (3 mL) inpn Inject 32 Units subcutaneously daily at bedtime. carvedilol (COREG) 3.125 mg tablet Take 1 tablet by mouth twice dailywith meals. amiodarone (PACERONE) 200 mg tablet Take 1 tablet by mouth once daily. bacitracin zinc (ANTIBIOTIC, BACITRACIN ZINC,) 500 unit/gram ointment Apply 1 application to affected area twice daily. polyethylene glycol 3350 (MIRALAX) 17 gram/dose po wder Use 1-2 times daily as needed for constipation. simvastatin (ZOCOR) 40 mg tablet Take 1 t ablet by mouth every morning. isosorbide mononitrate ER (IMDUR) 30 mg 24 hr tablet Take 3 tabl ets by mouth once daily. pregabalin (LYRICA) 25 mg capsule Take 1 tablet PO daily with an kay tional 1 tablet PO after dialysis MWF metoclopramide HCl(REGLAN) 5 mg tablet Take 1 tablet by mouth three times daily. pantoprazole DR (PROTONIX) 40 mg tablet Take 1 tablet by mouth once d aily. senna (SENNA) 8.6 mg tab Take 8.6 mg by mouth once daily. ondansetron (ZOFRAN) 4 mg tab let Take 4 mg by mouth every 8 hours as needed. ipratropium- albuterol (DUONEB) 0.5 mg-3 mg(2.5 mg base)/3 mL nebu Inhale 3 mL as instructed every 4 hours while awake. Andprn for wheezing/sh ortness of breath. budesonide (PULMICORT) 0.5 mg/2 mL nebulizer solution Use 2 mL via nebulize r once daily. INHALE 2 ML BY NEBULIZER OVER 5-15 MINUTES EVERY 12 HOURS. nystatin (NYSTOP) pow deangelo Apply 1 application to affected area three times daily. guaiFENesin-dextromethorphan (ABAD TAY DM) 100-10 mg/5 mL syrup Take 5-10 mL by mouth every 6 hours as needed for Cough. nitro glycerin sublingual (NITROQUICK) 0.4 mg SL tablet Dissolve 1 tablet under the tongue every 5 mi nutes as needed. OXYGEN, HOME THERAPY, Inhale 2.5 L/min as instructed continuous. 3 L/min when leaves home. No current facility-administered medications for this visit. ALLERGIES: Aspirin; Bactrim [Sulfamethoxazole-Trimethoprim]; Latex; Penicillins; Tetracycline; Atorvastatin; Codeine; Dilaudid [Hydromorphone (Bulk)]; Meperidine; Pentazocine; Pioglitazone; Propoxyphene PERSONAL HISTORY: c SOCIAL HISTORY c Social History Marital status: Spouse name: Years of education: Number of children: Social History Main Topics Smo ross status: Former Smoker Packs/ day: 2.50 Years: 43.00 Types: Cigarettes Start date: 1961 Quit date : 07/07/2004 Smokeless tobacco: Never Used Alcohol use: No D rug use: No Other Topics Concern Caffeine Concern Yes Comment:cof fee 1 cup daily Special DietNo Comment:Regular Exercise No Comment:no unable , due to SOB x several months. Social History Narrative Patient and daughter live together. FAMILY HISTORY: c FAMILY HISTORY c FAMILY HISTORY Problem Relation Age of Onset Hypertension Mother living at age 9 3, HTN Heart Failure Mother NE Cancer Father age 71, lung c ancerHeart Attack Sister COPD Brother Heart Paternal Grandmother Heart Paternal Grandfather Heart Sister Diabetes Sister Heart Sister Breast Cancer Sister Diabetes Sister Hypertension Brother Diabetes Brother REVIEW OF SYMPTOMS: The review of systems data was entered by the nurse and reviewed by tx Nursing Notes: Madelyn John LPN 08/11/2018 11:04 AM Signed REVIEW OF SYSTEMS: General: The patient NOTES fatigue, denies weight loss, NOTES weight gain, NOTES feeling hot, and denies feelings of cold. Eyes: The patient denies glaucoma, NOTES eye injury/surgery, wears glasses or contacts. Ear/Nose/Throat: The patient denies allergies, denies hayfever, denies ear infections, and NOTES bloody noses. Cardiovascular: The patient NOTES chest pain, NOTES heart disease, denies high blood pressure,NOTES cardiac stent, denies prior heart attack, NOTES irregular heart beat, NOTES high cholesterol, NOTES poor circulation, NOTES heart failure, other cardiac issues, NOTES claudication, NOTES cold feet, denies peripheral arterial stent. Respiratory: The patient denies tuberculosis, NOTES pneumonia, NOTES frequent cough, denies pulmonary embolism, NOTES shortness of breath, and denies coughing up blood. Gastrointestinal: The patient NOTES difficulty swallowing, NOTES acid reflux, denies ulcers, denies vomiting, denies jaundice/hepatitis, NOTES gallbladder problems, denies black or tarry stools, NOTES hemorrhoids, NOTES bleeding from rectum, denies diverticulitis, denies constipation, denies diarrhea, denies loss of stool control, and NOTES hernias. Kidney/Bladder: The patient denies kidney stones, denies urine infections, and denies bloody urine.NOTES renal failure Skin: The patient denies a history of skin cancer, denies bleeding/changing moles, and denies a history of skin rash. Neurologic: The patient denies a history of epilepsy/convulsions, denies headaches, denies head/spinal injuries, and denies stroke/TIA. Psychiatric: The patient denies psychiatric medications, denies depression, and denies voices, denies substance abuse. Endocrine: The patient denies thyroid disorders, NOTES diabetes, and denies hormonal problems. Hematologic: The patient denies a history of bruising, denies bleeding, and denies anemia, denies blood clots. Infections: The patient denies a history of measles and mumps, denies rheumatic fever, and denies sexually transmitted diseases. Musculoskeletal: The patient denies back pain/injury, denies back problems, denies sciatica, NOTES knee/foot trouble, denies arthritis, or NOTES gout. When was patient's last Mammogram screening greater than 5 years Last Colonoscopy: 2011 PHYSICAL EXAMINATION: General: The patient is 77 year old female, well nourished, well hydrated in no acute distress. The patient is oriented to time, place, and person. VITALS: Blood pressure (!) 86/48, weight 92.5 kg (204 lb). Body mass index is 31.02 kg/m . HEENT: Normal cephalic, ataumatic, pupils are equally round, sclera are anicteric, mucous membranes are moist, oropharynx is clear. Neck has no masses, asymmetry or lymphadenopathy. Thyroid is unremarkable. Patient on continuous oxygen Respiratory: Clear to auscultation and percussion. Normal respiratory excursion and pattern. - Distant Cardiac: Examination is regular rate and rhythm. Distant Abdominal exam: Soft, nontender, with no palpable masses. No hepatosplenomegaly. No palpable hernias. Rectal exam: exam deferred Extremities: no clubbing, cyanosis or edema. No adenopathy. Other: LABORATORY VALUES: As Noted RADIOLOGIC STUDIES: As Noted Assessment IMPRESSION: Heme positive stools, recent upper endoscopy for gastritis and dysphagia with a Schatzki's ring present, colonoscopy, approximate 5 years previously, recent myocardial infarction, severe comorbidities PLAN: I plan to perform upper and lower endoscopy. We discussed the risks and benefits of the planned endoscopy. I have informed the patient that complications can occur including failure to complete the endoscopy and perforation. The patient had the opportunity to ask questions concerning the planned endoscopy. My staff has also explained the procedure to the patient in understandable terms and has given the patient printed material concerning the procedure. The patient freely consents to surgery. Bowel prep will be challenging due to the patient's cardiomyopathy and renal failure to avoid dehydration and/or hypotension. This will likely need to be performed in hospital for bowel prep. I plan for monitored anesthetic care. Diagnoses: (K62.5) Rectal bleeding (primary encounter diagnosis) (N17.9, N18.3) Acute renal failure superimposed on stage 3 chronic kidney disease, unspecified acute renal failure type (HCC) (Z95.0) Pacemaker (I25.10) Coronary artery disease, angina presence unspecified, unspecified vessel or lesion type, unspecified whether rincon or transplanted heart (K21.9) Gastroesophageal reflux disease, esophagitis presence not specified My findings have been communicated to Dr. Jameson Kamara MD via shared medical record. This note will be forwarded to Dr. Jameson Kamara MD. Return to Clinic: The patient is instructed to follow-up with me as needed. Dina Claudio MD 08/18/18 0700 <Electronically signed by Dina Claudio MD> Date Dina Claudio MD Cosigner Signature: Date (if applicable) CC: Mook Kamara MD; Dina Claudio MD Signed IMMUNOHISTOCHEMISTRY Observed: 08/18/2018 Status: F Source: [place] 7:00 [facility] REPOSITORY Patient: LUZ BACA : 1940 (77/F) Acct Num: [id number] Phys: González COLLIER,Dina Unit Num: [id number] Loc: MS2 TG786-1 Specimen: [id number] Received: 08/18/181212 Spec Type: IMMUNO TISSUES 1 TISSUES: Stomach, NOS SPECIMEN INFORMATION: Tissue Source: Antrum biopsy Clinical Info: Blood in stool Specimen Number: [id number] CPT code: 83688 METHODOLOGY: Deparaffinized sections of prefer/formalin-fixed tissue or PAP/DQ stained slides are incubated with monoclonal/polyclonal antibodies/oligonucleotide probes. Localization is made via biotin free immunoperoxidase method. Appropriate controls are performed and reacted as expected. Results on target cell population are indicated in the following table: RESULTS: ANTIBODY / CLONE RESULT H Pylori (polyclonal) negative These tests were developed and their performance characteristics determined by [facility]. They may not have been cleared or approved by the U.S. Food and Drug Administration. The FDA has determined that such clearance or approval is not necessary. INTERPRETATION: Antrum, biopsy: Negative for Helicobacter pylori organisms. AM:black 08/22/18 PHYSICIAN AND INSTITUTION [address] [address] Signed Mu Quinteros 08/22/18 <signature on file> Performed By: #### PIMM #### [facility] [address] [place], [address] BEDSIDE GLUCOSE Collected: 08/18/2018 Status: F Source: [place] 6:09 AM [facility] REPOSITORY TYPE CODE TESTS RESULT OUT OF RANGE REFERENCE UNITS LAB L501.080 70-110 mg/dL Normal BEDSIDE GLU 81 Result Comment: MANAGEMENT OF PATIENT CARE PER NURSING PROTOCOL Performed By: #### L501.080 #### [facility] Point of Care [address] [place] [address] GASTRIC BIOPSY Observed: 08/18/2018 Status: F Source: [place] 12:00 AM [facility] REPOSITORY Patient: LUZ BACA : 1940 (77/F) Acct Num: [id number] Phys: Dina Claudio MD Unit Num: [id number] Loc: MS2 [id number] Specimen: [id number] Received: 08/18/18 - 1052 Spec Type: Gastric Bx TISSUES 1 TISSUES: Gastric mucous membrane COMMENT The results of immunohistochemistry for Helicobacter pylori will be reported separately ([id number]). GROSS DESCRIPTION Received in fixative is one container labeled with the patient's name and designated antrum biopsy. The specimen consists of one irregular fragment of light benavides soft tissue that measures 0.5 x 0.2 x 0.2 cm. The specimen is totally submitted in one cassette. / AM:black 08/18/18 TC:3 CPT: 59479 HEADER OPERATION: Colonoscopy, EGD ([facility] [place]) PRE-OP DIAGNOSIS: Blood in stool TISSUE SUBMITTED: Antrum biopsy for H. pylori and path MICROSCOPIC DESCRIPTION Slides are reviewed. MICROSCOPIC DIAGNOSIS Gastric antrum, biopsy: Mild chronic gastritis. AM:black 08/19/18 Signed Mu Quinteros 08/19/18 <signature on file> Performed By: #### PGASB #### [facility] [address] [place], [address] CNOP Observed: 08/18/2018 Status: COMPLETED Source: [place] 12:00 AM [facility] REPOSITORY Operative Note (Enc) (GENSWS) Progress Notes: Dina Claudio MD 08/22/2018 6:35 PM Signed OPERATIVE NOTATION FOR [facility] SURGICAL PROCEDURE. August 18, 2018 Luz Condein 1940 [id number] female PROCEDURE: EGD WITH BIOPSY - 15165-870 and COLONOSCOPY - 53269-658 SURGEON: Ellyn Claudio M.D. FACS VMWARE ENGINEER: None DEPT: W PROVIDER: [id number]=RcleuzgDina Claudio MD POS: [id number] DIAGNOSIS: (R19.5) Occult GI bleeding (primary encounter diagnosis) ASA CLASS: 3 - Severe FINDINGS: gastritis, diverticulosis COMPLICATIONS: None PMHx - PAST MEDICAL HISTORY Diagnosis Date - Arthritis - Atrial fibrillation ([facility]) - CAD (coronary artery disease) stents x9, defibrillator, CABG. Seeing Dr. Cardona - Cardiac defibrillator in place - Cardiomegaly - Carotid artery disease (HCC) left - Chronic hypoxemic respiratory failure ([facility]) 07/01/2018 - Chronic kidney disease (CKD) stage G3b/A2, moderately decreased glomerular filtration rate (GFR) between 30-44 mL/min/1.73 square meter and albuminuria creatinine ratio between 30-299 mg/g ([facility]) Dr. Martin - COPD (chronic obstructive pulmonary disease) ([facility]) Dr. Cruz - Depression - Diabetes ([facility]) - Diabetic neuropathy ([facility]) - Edema - ESRD (end stage renal disease) on dialysis ([facility]) [facility], Dr. Martin - GERD (gastroesophageal reflux disease) - Gout with hyperuricemia - HH (hiatus hernia) - HOCM (hypertrophic obstructive cardiomyopathy) ([facility]) S/P Septal Myectomy in 2003. Now with LVEF 50% and mod/severe pulm HTN. - HTN (hypertension) - Hyperlipidemia - Morbid obesity with BMI of 40.0-44.9, adult (HCC) - Presence of combination internal cardiac defibrillator (ICD) and pacemaker - Sleep apnea 2011 not on CPAP, unable to tolerate mask 02/2017 - SVT (supraventricular tachycardia) ([facility]) NSVT and questionable VT in 2004 post op COMORBIDITIES - Obesity, Chronic Pulmonary, COPD, Coagulopathy, Coumadin Tx, Anemia, CHF, CAD, HTN, Cor Pulmonale, Hx Cardiac Surgery and NE Post Op Occurrences - None Wound Classification - Contaminated Operative note dictated in the [facility] dictation system. Dina Claudio MD Encounter Status:Closed by DINA CLAUDIO MD on 08/22/18 BEDSIDE GLUCOSE Collected: 08/17/2018 Status: F Source: [place] 10:34 PM [facility] REPOSITORY TYPE CODE TESTS RESULT OUT OF RANGE REFERENCE UNITS LAB L501.080 70-110 mg/dL Normal BEDSIDE GLU 101 Result Comment: MANAGEMENT OF PATIENT CARE PER NURSING PROTOCOL Performed By: #### L501.080 #### [facility] Laboratory Point of Care [facility] [place], [place] [address] CBC W/DIFF, AUTOMATED Collected: 08/17/2018 Status: F Source: [place] 5:45 PM [facility] REPOSITORY TYPE CODE TESTS RESULT OUT OF RANGE REFERENCE UNITS LAB L100.1000 4.4-11.0 K/mm3 Normal WBC 6.5 LAB L100.1200 4.2-5.4 M/mm3 Normal RBC 4.32 LAB L100.1300 12.0-15.0 g/dl Normal HGB 13.5 LAB L100.1400 37-47 % Normal HCT 43.1 LAB L100.1500 81-99 fL High MCV 99.8 LAB L100.1600 27.0-32.0 pg Normal MCH 31.3 LAB L100.1700 32-36 g/gl Low MCHC 31.3 LAB L100.1810 11.6-14.6 % Normal RDW CV 14.4 LAB L100.1820 35.1-43.9 fl High RDW SD 51.9 LAB L100.1900 150-450 K/mm3 Low PLT 137 LAB L100.2000 6.2-12.0 fl Normal MPV 9.5 LAB L100.2100 47-70 % Normal NEUT% 67.0 LAB L100.2200 19-41 % Low LY% 16.5 LAB L100.2300 0-10 % High MONO% 12.8 LAB L100.2400 0-5 % Normal EO% 3.1 LAB L100.2500 0-1 % Normal BASO% 0.3 LAB L100.2550 0.0-0.9 % Normal IM GRAN % 0.300 Result Comment: IG% - Immature Granulocytes (promyelocytes, myelocytes and metamyelocytes) > 1% indicates that a LEFT SHIFT is Present. LAB L100.2620 2.0-7.7 X10 3/uL Normal Absolute Neut 4.3 LAB L100.2720 0.83-4.51 X10 3/ul Normal Absolute Lymph 1.07 Performed By: #### L100.0100, L500.4050, L501.2300, L501.5200 #### [facility] [address] [place], [place], [address] COMPREHENSIVE METABOLIC Collected: 08/17/2018 Status: F Source: [facility] 5:45 PM [facility] REPOSITORY TYPE CODE TESTS RESULT OUT OF RANGE REFERENCE UNITS LAB L501.0100 74-106 mg/dL Low GLU 70 Result Comment: Please note revised GLUCOSE reference range effective 2017. LAB L501.1000 7-18 mg/dL High BUN 22 LAB L501.1100 0.55-1.02 mg/dL High CREAT,SERUM 3.72 Result Comment: The validity of the calculated GFR AND GFRAA in patients over 70 years has not been determined. Clinical correlation is essential. LAB L501.1110 >60 mL/min Low EST GFR 13 Result Comment: Non- GFR Calc LAB L501.1115 >60 mL/min Low EST GFR - AA 15 Result Comment: GFR Calc LAB L501.1255 ml/min Normal Estimated CRCL 12.98 LAB L501.1300 10-20 RATIO Low BUN/CRE 5.9 LAB L501.1500 6.4-8. g/dL High 2 T PROT 8.3 LAB L501.1800 3.2-5. g/dL Normal 0 ALB 3.2 LAB L501.1950 2.2-4. g/dL High 2 GLOB 5.1 LAB L501.2000 0.9-2. RATIO Low 4 A/G 0.6 LAB L501.2200 8.5-10 mg/dL Normal .1 CA 8.6 LAB L501.4100 15-37 U/L Normal AST 21 LAB L501.4305 45-117 U/L High ALK P 123 LAB L501.4405 13-56 U/L Normal ALT 20 LAB L501.4600 0.20-1 mg/dL Normal .00 T BILI 0.60 LAB L501.5300 136-14 mmol/L Low 5 NA 135 LAB L501.5600 3.5-5. mmol/L Low 1 K 3.3 LAB L501.5900 98-107 mmol/L Low CL 95 LAB L501.6100 21.0-3 mmol/L High 2.0 CO2 34.0 LAB L501.6200 5-15 Normal GAP 6 Performed By: #### L100.0100, L500.4050, L501.2300, L501.5200 #### [facility] [address] [place], [place], [address] PHOSPHORUS Collected: 08/17/2018 Status: F Source: [place] 5:45 PM [facility] REPOSITORY TYPE CODE TESTS RESULT OUT OF RANGE REFERENCE UNITS LAB L501.2300 2.5-4.9 mg/dL Normal PHOS 3.9 Performed By: #### L100.0100, L500.4050, L501.2300, L501.5200 #### [facility] [address] [place], [place], [id number] MAGNESIUM Collected: 08/17/2018 Status: F Source: [place] 5:45 PM [facility] REPOSITORY TYPE CODE TESTS RESULT OUT OF RANGE REFERENCE UNITS LAB L501.5200 1.6-2.6 mg/dL Normal MG 2.1 Performed By: #### L100.0100, L500.4050, L501.2300, L501.5200 #### [facility] [address] [place], [place], [address] BEDSIDE GLUCOSE Collected: 08/17/2018 Status: F Source: [place] 4:48 PM [facility] REPOSITORY TYPE CODE TESTS RESULT OUT OF RANGE REFERENCE UNITS LAB L501.080 70-110 mg/dL Normal BEDSIDE GLU 85 Result Comment: MANAGEMENT OF PATIENT CARE PER NURSING PROTOCOL Performed By: #### L501.080 #### [facility] Laboratory Point of Care [address] [place] [address] PROGRESS Observed: 08/15/2018 Status: COMPLETED Source: [place] 5:39 PM [facility] REPOSITORY HNO ID: [id number] Author: Jameson Adams) Koffi Service: (none) Author Type: Physician Type: Progress Notes Filed: 08/15/2018 5:40 PM Note Text: Reviewed. Glucose readings controlled otherwise. Will continue current regimen and have PCC follow up in 2-4 weeks. Keep appointments as scheduled. PROGRESS Observed: 08/15/2018 Status: COMPLETED Source: [place] 5:12 PM [facility] REPOSITORY HNO ID: [id number] Author: Sean Han Ma Service: (none) Author Type: (none) Type: Progress Notes Filed: 08/16/2018 8:43 AM Note Text: Patient states she was not feeling well that day and did not have a regular diet. PROGRESS Observed: 08/15/2018 Status: COMPLETED Source: [place] 5:08 PM [facility] REPOSITORY HNO ID: [id number] Author: Jameson Adams) Koffi Service: (none) Author Type: Physician Type: Progress Notes Filed: 08/15/2018 5:09 PM Note Text: Single episode of low glucose on 07/22. Was she ill during this time or not eating regular diet? PROGRESS Observed: 08/15/2018 Status: COMPLETED Source: [place] 8:33 AM [facility] REPOSITORY HNO ID: [id number] Author: Remi OsheaRn) Brent Service: (none) Author Type: Registered Nurse Type: Progress Notes Filed: 08/15/2018 3:49 PM Note Text: PRIMARY CARE COORDINATION FOLLOW-UP NOTE Provider Action/ANI Faxed BS from [facility] Patient identified by name and date of . YES Spoke to [facility] Summary: Luz Baca is a 77 year old female who reports glucose readings as noted. DATE 08/09 08/04 07/26 07/22 07/19 07/14 07/08 9/18 Fasting 162 132 135 52 197 129 161 190 Any low blood sugars during this period of reporting Yes Patient's diabetes medications as follows: insulin glargine (LANTUS SOLOSTAR U-100 INSULIN) Inject 50 Units subcutaneously every morning. insulin aspart U-100 (NOVOLOG FLEXPEN U-100 INSULIN) Using Sliding Scale: 150-209 1 unit, 210-269 2 units, 270- 329 3 units, 330-389 4 units, 390-449 5 units TC to [facility], asked to fax recent BS to PCC. Watermelon Inspector plan for next outreach: Will follow up one month Signature Remi Kennedy RN August 15, 2018 ELÍASTOUTRMASSIMOCH Observed: 08/15/2018 Status: COMPLETED Source: [place] 12:00 AM [facility] REPOSITORY Patient Outreach (FAMPWS) LUZ BACA ([id number]) 1940 F Date Time Provider Department 08/15/18 REMI KENNEDY (RN) FAMPWS During your visit today, we recorded the following information about you: Remi Kennedy RN 08/15/2018 3:49 PM Signed PRIMARY CARE COORDINATION FOLLOW-UP NOTE Provider Action/FYI Faxed BS from [facility] Patient identified by name and date of . YES Spoke to [facility] Summary: Luz G Keven is a 77 year old female who reports glucose readings as noted. DATE 08/09 08/04 07/26 07/22 07/19 07/14 07/08 07/05 Fasting 162 132 135 52 197 129 161 190 Any low blood sugars during this period of reporting Yes Patient's diabetes medications as follows: insulin glargine (LANTUS SOLOSTAR U-100 INSULIN) Inject 50 Units subcutaneously every morning. insulin aspart U-100 (NOVOLOG FLEXPEN U-100 INSULIN) Using Sliding Scale: 150-209 1 unit, 210-269 2 units, 270- 329 3 units, 330-389 4 units, 390-449 5 units TC to [facility], asked to fax recent BS to PCC. Watermelon Inspector plan for next outreach: Will follow up one month Signature Remi Kennedy RN August 15, 2018 Jameson Kamara MD 08/15/2018 5:09 PM Signed Single episode of low glucose on 07/22. Was she ill during this time or not eating regular diet? Sean Han Idania 08/16/2018 8:43 AM Signed Patient states she was not feeling well that day and did not have a regular diet. Jameson Kamara MD 08/15/2018 5:40 PM Signed Reviewed. Glucose readings controlled otherwise. Will continue current regimen and have PCC follow up in 2-4 weeks. Keep appointments as scheduled. Allergies As of Date: 08/15/2018 Noted Allergy Reaction ASPIRIN 01/20/2018 14 - Other: See Comments Comments: Patient states that she bled out every orifice, sts not allowed to take it at all. Patient states she was bleeding out of nose and mouth after one dose. BACTRIM (SULFAMETHOXAZOLE-TRIMETH*05/17/2017 14 - Other: See Comments Comments: My throat swells up. LATEX 05/17/2017 2 - Rash 9 - Itching Comments: Itching and welts. No wheezing or shortness of breath. PENICILLINS 07/14/2004 2 - Rash 9 - Itching Comments: Tolerated ceftriaxone during 11/2017 admission and cefepime during 12/2017 admission TETRACYCLINE 09/29/2010 2 - Rash 8 - GI Upset Comments: Emesis and diarrhea. 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 [3612] Prescriptions as of 08/15/2018 Sig: CARVEDILOL 3.125 MG TABLET Take 1 tablet by mouth twice * AMIODARONE 200 MG TABLET Take 1 tablet by mouth once d* APIXABAN 5 MG TABLET Take 1 tablet by mouth twice * INSULIN ASPART U-100 100 UNI* Using Sliding Scale: 150-209* INSULIN GLARGINE (U-100) 100 * Inject 50 Units subcutaneousl* INSULIN GLARGINE (U-100) 100 * Inject 32 Units subcutaneousl* BACITRACIN ZINC 500 UNIT/GRAM* Apply 1 application to affect* POLYETHYLENE GLYCOL 3350 17 G* Use 1-2 times daily as needed* SIMVASTATIN 40 MG TABLET Take 1 tablet by mouth every * ISOSORBIDE MONONITRATE ER 30 * Take 3 tablets by mouth once * PREGABALIN 25 MG CAPSULE Take 1 tablet PO daily with a* METOCLOPRAMIDE 5 MG TABLET Take 1 tablet by mouth three * PANTOPRAZOLE 40 MG TABLET,DEL* Take 1 tablet by mouth once d* SENNOSIDES 8.6 MG TABLET Take 8.6 mg by mouth once carlos* ONDANSETRON HCL 4 MG TABLET Take 4 mg by mouth every 8 ho* IPRATROPIUM-ALBUTEROL 0.5 MG-* Inhale 3 mL as instructed leanne* BUDESONIDE 0.5 MG/2 ML SUSPEN* Use 2 mL via nebulizer once d* NYSTATIN 100,000 UNIT/GRAM TO* Apply 1 application to affect* DEXTROMETHORPHAN-GUAIFENESIN * Take 5-10 mL by mouth every 6* NITROGLYCERIN 0.4 MG SUBLINGU* Dissolve 1 tablet under the t* OXYGEN (HOME THERAPY) Inhale 2.5 L/min as instructe* Problem List As Of Date 08/15/2018 Noted Resolved HOCM (hypertrophic obstructive cardiomyopathy) * 01/23/2018 Priority: I More... SVT (supraventricular tachycardia) ([facility]) [I47.1] 01/21/2018 More... Carotid artery disease (HCC) [I77.9] 01/22/2018 CAD (coronary artery disease) [I25.10] Priority: E More... Hypertension [I10] Priority: L More... Hyperlipidemia [E78.5] Pneumonia [J18.9] 10/27/2017 More... COPD (chronic obstructive pulmonary disease) (H* Priority: F More... Sleep apnea [G47.30] Priority: I More... HH (hiatus hernia) [K44.9] 01/21/2018 GERD (gastroesophageal reflux disease) [K21.9] Priority: K More... More... Arthritis [M19.90] Numbness and tingling of right leg [R20.0, R20.* 01/21/2018 Depression [F32.9] Atrial fibrillation (HCC) [I48.91] INVALID FOR* Priority: C More... Uncontrolled type 2 diabetes mellitus with stag*INVALID FOR* Priority: H More... More... More... Heart failure, systolic, acute (HCC) [I50.21] INVALID FOR*01/21/2018 More... Obesity [E66.09] INVALID FOR* Priority: M More... Gout [M10.9] Pacemaker [Z95.0] Priority: D More... Chronic combined systolic and diastolic CHF (co*INVALID FOR* Priority: B More... Elevated troponin [R74.8] INVALID FOR*01/22/2018 Priority: G More... Pulmonary hypertension (HCC) [I27.20] INVALID FOR* Oral thrush [B37.0] INVALID FOR*01/21/2018 Hyponatremia [E87.1] INVALID FOR* Priority: J More... Hyperkalemia [E87.5] INVALID FOR*01/22/2018 Priority: J Chest pain in adult [R07.9] INVALID FOR*02/12/2018 Priority: A More... Acute renal failure superimposed on stage 3 chr*INVALID FOR* Priority: A More... Obesity, Class II, BMI 35-39.9 [E66.9] INVALID FOR* ESRD on dialysis (HCC) [N18.6, Z99.2] INVALID FOR* More... Chronic hypoxemic respiratory failure (HCC) [J9*INVALID FOR* Encounter Status:Closed by REMI KENNEDY on 08/16/18 PROGRESS Observed: 08/12/2018 Status: COMPLETED Source: [place] 10:14 AM [facility] REPOSITORY O ID: [id number] Author: Jameson Adams) Koffi Service: (none) Author Type: Physician Type: Progress Notes Filed: 08/12/2018 10:15 AM Note Text: 30 day refill sent as requested. F/u with specialists as recommended. Will await glucose readings. PROGRESS Observed: 08/12/2018 Status: COMPLETED Source: [place] 9:42 AM [facility] REPOSITORY HNO ID: [id number] Author: Remi Briseno) Brent Service: (none) Author Type: Registered Nurse Type: Progress Notes Filed: 08/12/2018 9:56 AM Note Text: PRIMARY CARE COORDINATION FOLLOW-UP NOTE Provider Action/FYI ORDERS PENDED FOR REFILL IF YOU APPROVE Does PCP wants refills HH nurse will fax blood sugars No chest pain or SOB Only complaint is foot pain. Dr Rodriguez removed some skin on toe and it is still bleeding slightly so dgt is applying bandaid Pt will return to [employer] for new diabetic shoes Patient identified by name and date of . YES Spoke to Octavia mesa Summary: Home Health nurse will fax blood sugars. No chest pain and breathing is at baseline. Only complaint is foot pain, Dr. Rodriguez had removed some skin on pt's toe Patient phones requesting refills as follows: Pending Prescriptions Disp Refills CARVEDILOL 3.125 MG TABLET 60 tablet 0 Sig: Take 1 tablet by mouth twice daily with meals. JF: No AMIODARONE 200 MG TABLET 30 tablet 0 Sig: Take 1 tablet by mouth once daily. JF: No Please review and advise. Watermelon Inspector plan for next outreach: Will follow up one month Signature Remi Kennedy RN August 12, 2018 PROGRESS Observed: 08/11/2018 Status: COMPLETED Source: [place] 5:11 PM [facility] REPOSITORY HNO ID: [id number] Author: Remi Briseno) Brent Service: (none) Author Type: Registered Nurse Type: Progress Notes Filed: 08/11/2018 5:16 PM Note Text: PRIMARY CARE COORDINATION FOLLOW-UP NOTE Provider Action/FYI Dgt states pt will have colonoscopy with Dr. Claudio 08/18 Patient identified by name and date of . YES Spoke to Octavia mesa Summary: Read result note: Notes recorded by Jameson Kamara on 08/05/2018 at 12:00 PM EDT A1C down to 6.3 from 6.8 two months ago. Decreased her lantus at last OV this month. Please contact patient for glucose readings from the last 2 weeks. Dgt verbalized understanding. She isn't at home and will call back tomorrow with Watermelon Inspector plan for next outreach: Will follow up 2 weeks Signature Remi Kennedy RN August 11, 2018 PROGRESS Observed: 08/11/2018 Status: COMPLETED Source: [place] 2:50 PM [facility] REPOSITORY HNO ID: [id number] Author: Dina Claudio Service: (none) Author Type: Physician Type: Progress Notes Filed: 08/11/2018 2:55 PM Note Text: HISTORY AND PHYSICAL Luz Salvador Keven 1940 REFERRING PHYSICIAN: Adriel Pringle (Audio Production Engineer), Ebonie* CHIEF COMPLAINT: New Patient (positive occult stool) HPI: The patient is a 77 year old female referred for endoscopy. Luz notes , denies abdominal pain area did the patient notes episodic diarrhea and constipation. More recently, the patient has had more episodes of diarrhea. While denying true pain. She does note some abdominal cramping and periumbilical area. The patient denies nausea or vomiting. She denies hematemesis. She denies melena or hematochezia. The patient had a recent stool for occult blood which was positive. Patient has a recent history of dysphagia. She underwent upper endoscopy with esophageal dilatation on's December 31, 2017. This was performed in [place]. The patient was found to have a 3 cm hiatal hernia irregular GE junction and a shop. He is wearing that was dilated. Pathology returned as chronic active gastritis with H. pylori-like organisms. Negative for dysplasia on the stomach, biopsy, gastric biopsy demonstrated reactive gastric mucosa, negative for metaplasia or dysplasia. Esophageal biopsy returned as active inflammation. H. pylori antibody was positive. The patient was treated with eradication for H. pylori. She's been maintained on proton pump inhibitors. The patient had colonoscopy performed she recalls 5 years previously and [place]. She is uncertain what the findings were or what the recommended follow-up were. Has extensive past medical history - most recently, the patient had a non-ST segment myocardial infarction on May 13. She underwent cardiac catheterization which demonstrated an occluded venous graft, a patent VU graft and a 60% stenosis of the mid LAD. The patient also has a history of supraventricular tachycardia, sleep apnea, morbid obesity, hypertrophic obstructive cardiomyopathy, diabetic neuropathy, diabetes, COPD, chronic renal failure on dialysis with failed dialysis access. Carotid artery disease pacer defibrillator in place. She is referred for endoscopy due to blood in stool. We elected to hold off on endoscopy at that time and wait at least 3 months till after her myocardial infarction. Since that time, she has undergone a surgical procedure for dialysis access in [place]. The patient required intubation and noted dysphagia for the first 2 weeks following that procedure. This dysphagia has since resolved. The patient is impaired with her activities of daily living and uses a scooter. She has a history of heart failure and has a history of undergoing a right sided congestive heart failure with fluid shafts. Her supervisor porcelain department is Dr. Cardona but she has had her most recent cardiac care at [facility] by Dr. Hunter The patient is being seen by me today at the request of Dr. Jameson Kamara MD for my opinion and advice regarding need for endoscopy given chronic and severe medical comorbidities. PAST MEDICAL HISTORY Diagnosis Date - Arthritis - Atrial fibrillation ([facility]) - CAD (coronary artery disease) stents x9, defibrillator, CABG. Seeing Dr. Cardona - Cardiac defibrillator in place - Cardiomegaly - Carotid artery disease ([facility]) left - Chronic hypoxemic respiratory failure ([facility]) 07/01/2018 - Chronic kidney disease (CKD) stage G3b/A2, moderately decreased glomerular filtration rate (GFR) between 30-44 mL/min/1.73 square meter and albuminuria creatinine ratio between 30-299 mg/g ([facility]) Dr. Martin - COPD (chronic obstructive pulmonary disease) ([facility]) Dr. Cruz - Depression - Diabetes ([facility]) - Diabetic neuropathy ([facility]) - Edema - ESRD (end stage renal disease) on dialysis ([facility]) [facility], Dr. Martin - GERD (gastroesophageal reflux disease) - Gout with hyperuricemia - HH (hiatus hernia) - HOCM (hypertrophic obstructive cardiomyopathy) ([facility]) S/P Septal Myectomy in 2003. Now with LVEF 50% and mod/severe pulm HTN. - HTN (hypertension) - Hyperlipidemia - Morbid obesity with BMI of 40.0-44.9, adult ([facility]) - Presence of combination internal cardiac defibrillator (ICD) and pacemaker - Sleep apnea 2011 not on CPAP, unable to tolerate mask 02/2017 - SVT (supraventricular tachycardia) ([facility]) NSVT and questionable VT in 2003 post op PAST SURGICAL HISTORY Procedure Laterality Date - CABG (1) VEIN GRAFT AND ARTERIAL GRAFT - CHOLECYSTECTOMY HX - DIALYSIS ACCESS SYSTEM - HEART SURGERY HX 07/18/2004 Septal myectomy and CABG x2 (DEBORAH-LAD, SVG-PDA). - HYSTERECTOMY HX - IANDD PERIANAL ABSCESS - PACEMAKER with defib - PAST SURGICAL HISTORY OF left breast nodule removed - PAST SURGICAL HISTORY OF skin lesions removed - STENT PLACEMENT coronary Current Outpatient Prescriptions: apixaban (ELIQUIS) 5 mg tab(s) Take 1 tablet by mouth twice daily. insulin aspart U-100 (NOVOLOG FLEXPEN U-100 INSULIN) 100 unit/mL inpn Using Sliding Scale: 150-209 1 unit, 210-269 2 units, 270- 329 3 units, 330-389 4 units, 390-449 5 units insulin glargine (LANTUS SOLOSTAR U-100 INSULIN) 100 unit/mL (3 mL) inpn Inject 50 Units subcutaneously every morning. insulin glargine (LANTUS SOLOSTAR U-100 INSULIN) 100 unit/mL (3 mL) inpn Inject 32 Units subcutaneously daily at bedtime. carvedilol (COREG) 3.125 mg tablet Take 1 tablet by mouth twice daily with meals. amiodarone (PACERONE) 200 mg tablet Take 1 tablet by mouth once daily. bacitracin zinc (ANTIBIOTIC, BACITRACIN ZINC,) 500 unit/gram ointment Apply 1 application to affected area twice daily. polyethylene glycol 3350 (MIRALAX) 17 gram/dose powder Use 1-2 times daily as needed for constipation. simvastatin (ZOCOR) 40 mg tablet Take 1 tablet by mouth every morning. isosorbide mononitrate ER (IMDUR) 30 mg 24 hr tablet Take 3 tablets by mouth once daily. pregabalin (LYRICA) 25 mg capsule Take 1 tablet PO daily with an additional 1 tablet PO after dialysis MWF metoclopramide HCl (REGLAN) 5 mg tablet Take 1 tablet by mouth three times daily. pantoprazole DR (PROTONIX) 40 mg tablet Take 1 tablet by mouth once daily. senna (SENNA) 8.6 mg tab Take 8.6 mg by mouth once daily. ondansetron (ZOFRAN) 4 mg tablet Take 4 mg by mouth every 8 hours as needed. ipratropium-albuterol (DUONEB) 0.5 mg-3 mg(2.5 mg base)/3 mL nebu Inhale 3 mL as instructed every 4 hours while awake. And prn for wheezing/shortness of breath. budesonide (PULMICORT) 0.5 mg/2 mL nebulizer solution Use 2 mL via nebulizer once daily. INHALE 2 ML BY NEBULIZER OVER 5-15 MINUTES EVERY 12 HOURS. nystatin (NYSTOP) powder Apply 1 application to affected area three times daily. guaiFENesin-dextromethorphan (ROBITUSSIN DM) 100-10 mg/5 mL syrup Take 5-10 mL by mouth every 6 hours as needed for Cough. nitroglycerin sublingual (NITROQUICK) 0.4 mg SL tablet Dissolve 1 tablet under the tongue every 5 minutes as needed. OXYGEN, HOME THERAPY, Inhale 2.5 L/min as instructed continuous. 3 L/min when leaves home. No current facility-administered medications for this visit. ALLERGIES: Aspirin; Bactrim [Sulfamethoxazole-Trimethoprim]; Latex; Penicillins; Tetracycline; Atorvastatin; Codeine; Dilaudid [Hydromorphone (Bulk)]; Meperidine; Pentazocine; Pioglitazone; Propoxyphene PERSONAL HISTORY: Social History Marital status: Spouse name: Years of education: Number of children: Social History Main Topics Smoking status: Former Smoker Packs/day: 2.50 Years: 43.00 Types: Cigarettes Start date: 1961 Quit date: 07/07/2004 Smokeless tobacco: Never Used Alcohol use: No Drug use: No Other Topics Concern Caffeine Concern Yes Comment:coffee 1 cup daily Special Diet No Comment:Regular Exercise No Comment:no unable, due to SOB x several months. Social History Narrative Patient and daughter live together. FAMILY HISTORY: FAMILY HISTORY Problem Relation Age of Onset - Hypertension Mother living at age 93, HTN - Heart Failure Mother [place] - Cancer Father age 71, lung cancer - Heart Attack Sister - COPD Brother - Heart Paternal Grandmother - Heart Paternal Grandfather - Heart Sister - Diabetes Sister - Heart Sister - Breast Cancer Sister - Diabetes Sister - Hypertension Brother - Diabetes Brother REVIEW OF SYMPTOMS: The review of systems data was entered by the nurse and reviewed by tx Nursing Notes: Madelyn John LPN 08/11/2018 11:04 AM Signed REVIEW OF SYSTEMS: General: The patient NOTES fatigue, denies weight loss, NOTES weight gain, NOTES feeling hot, and denies feelings of cold. Eyes: The patient denies glaucoma, NOTES eye injury/surgery, wears glasses or contacts. Ear/Nose/Throat: The patient denies allergies, denies hayfever, denies ear infections, and NOTES bloody noses. Cardiovascular: The patient NOTES chest pain, NOTES heart disease, denies high blood pressure,NOTES cardiac stent, denies prior heart attack, NOTES irregular heart beat, NOTES high cholesterol, NOTES poor circulation, NOTES heart failure, other cardiac issues, NOTES claudication, NOTES cold feet, denies peripheral arterial stent. Respiratory: The patient denies tuberculosis, NOTES pneumonia, NOTES frequent cough, denies pulmonary embolism, NOTES shortness of breath, and denies coughing up blood. Gastrointestinal: The patient NOTES difficulty swallowing, NOTES acid reflux, denies ulcers, denies vomiting, denies jaundice/hepatitis, NOTES gallbladder problems, denies black or tarry stools, NOTES hemorrhoids, NOTES bleeding from rectum, denies diverticulitis, denies constipation, denies diarrhea, denies loss of stool control, and NOTES hernias. Kidney/Bladder: The patient denies kidney stones, denies urine infections, and denies bloody urine.NOTES renal failure Skin: The patient denies a history of skin cancer, denies bleeding/changing moles, and denies a history of skin rash. Neurologic: The patient denies a history of epilepsy/convulsions, denies headaches, denies head/spinal injuries, and denies stroke/TIA. Psychiatric: The patient denies psychiatric medications, denies depression, and denies voices, denies substance abuse. Endocrine: The patient denies thyroid disorders, NOTES diabetes, and denies hormonal problems. Hematologic: The patient denies a history of bruising, denies bleeding, and denies anemia, denies blood clots. Infections: The patient denies a history of measles and mumps, denies rheumatic fever, and denies sexually transmitted diseases. Musculoskeletal: The patient denies back pain/injury, denies back problems, denies sciatica, NOTES knee/foot trouble, denies arthritis, or NOTES gout. ? ? When was patient's last Mammogram screening greater than 5 years ? ? Last Colonoscopy: 2011 PHYSICAL EXAMINATION: General: The patient is 77 year old female, well nourished, well hydrated in no acute distress. The patient is oriented to time, place, and person. VITALS: Blood pressure (!) 86/48, weight 92.5 kg (204 lb). Body mass index is 31.02 kg/m?. HEENT: Normal cephalic, ataumatic, pupils are equally round, sclera are anicteric, mucous membranes are moist, oropharynx is clear. Neck has no masses, asymmetry or lymphadenopathy. Thyroid is unremarkable. Patient on continuous oxygen Respiratory: Clear to auscultation and percussion. Normal respiratory excursion and pattern. - Distant Cardiac: Examination is regular rate and rhythm. Distant Abdominal exam: Soft, nontender, with no palpable masses. No hepatosplenomegaly. No palpable hernias. Rectal exam: exam deferred Extremities: no clubbing, cyanosis or edema. No adenopathy. Other: LABORATORY VALUES: As Noted RADIOLOGIC STUDIES: As Noted Assessment IMPRESSION: Heme positive stools, recent upper endoscopy for gastritis and dysphagia with a Schatzki's ring present, colonoscopy, approximate 5 years previously, recent myocardial infarction, severe comorbidities PLAN: I plan to perform upper and lower endoscopy. We discussed the risks and benefits of the planned endoscopy. I have informed the patient that complications can occur including failure to complete the endoscopy and perforation. The patient had the opportunity to ask questions concerning the planned endoscopy. My staff has also explained the procedure to the patient in understandable terms and has given the patient printed material concerning the procedure. The patient freely consents to surgery. Bowel prep will be challenging due to the patient's cardiomyopathy and renal failure to avoid dehydration and/or hypotension. This will likely need to be performed in hospital for bowel prep. I plan for monitored anesthetic care. Diagnoses: (K62.5) Rectal bleeding (primary encounter diagnosis) (N17.9, N18.3) Acute renal failure superimposed on stage 3 chronic kidney disease, unspecified acute renal failure type (HCC) (Z95.0) Pacemaker (I25.10) Coronary artery disease, angina presence unspecified, unspecified vessel or lesion type, unspecified whether rincon or transplanted heart (K21.9) Gastroesophageal reflux disease, esophagitis presence not specified My findings have been communicated to Dr. Jameson Kamara MD via shared medical record. This note will be forwarded to Dr. Jameson Kamara MD. Return to Clinic: The patient is instructed to follow-up with me as needed. Dina Claudio MD CNOV Observed: 08/11/2018 Status: COMPLETED Source: [place] 10:10 AM [facility] REPOSITORY Office Visit ([facility]ENS[facility]) LUZ BACA ([id number]) 1940 F Date Time Provider Department 08/11/18 10:10 AM DINA CLAUDIO During your visit today, we recorded the following information about you: Blood pressure Weight 86/48 92.5 kg Madelyn John [employer] 08/11/2018 11:04 AM Signed REVIEW OF SYSTEMS: General: The patient NOTES fatigue, denies weight loss, NOTES weight gain, NOTES feeling hot, and denies feelings of cold. Eyes: The patient denies glaucoma, NOTES eye injury/surgery, wears glasses or contacts. Ear/Nose/Throat: The patient denies allergies, denies hayfever, denies ear infections, and NOTES bloody noses. Cardiovascular: The patient NOTES chest pain, NOTES heart disease, denies high blood pressure,NOTES cardiac stent, denies prior heart attack, NOTES irregular heart beat, NOTES high cholesterol, NOTES poor circulation, NOTES heart failure, other cardiac issues, NOTES claudication, NOTES cold feet, denies peripheral arterial stent. Respiratory: The patient denies tuberculosis, NOTES pneumonia, NOTES frequent cough, denies pulmonary embolism, NOTES shortness of breath, and denies coughing up blood. Gastrointestinal: The patient NOTES difficulty swallowing, NOTES acid reflux, denies ulcers, denies vomiting, denies jaundice/hepatitis, NOTES gallbladder problems, denies black or tarry stools, NOTES hemorrhoids, NOTES bleeding from rectum, denies diverticulitis, denies constipation, denies diarrhea, denies loss of stool control, and NOTES hernias. Kidney/Bladder: The patient denies kidney stones, denies urine infections, and denies bloody urine.NOTES renal failure Skin: The patient denies a history of skin cancer, denies bleeding/changing moles, and denies a history of skin rash. Neurologic: The patient denies a history of epilepsy/convulsions, denies headaches, denies head/spinal injuries, and denies stroke/TIA. Psychiatric: The patient denies psychiatric medications, denies depression, and denies voices, denies substance abuse. Endocrine: The patient denies thyroid disorders, NOTES diabetes, and denies hormonal problems. Hematologic: The patient denies a history of bruising, denies bleeding, and denies anemia, denies blood clots. Infections: The patient denies a history of measles and mumps, denies rheumatic fever, and denies sexually transmitted diseases. Musculoskeletal: The patient denies back pain/injury, denies back problems, denies sciatica, NOTES knee/foot trouble, denies arthritis, or NOTES gout. ? ? When was patient's last Mammogram screening greater than 5 years ? ? Last Colonoscopy: 2011 Dina Claudio MD 08/11/2018 2:55 PM Signed HISTORY AND PHYSICAL Luz Baca 1940 REFERRING PHYSICIAN: Adriel Pringle (Audio Production Engineer), Ebonie* CHIEF COMPLAINT: New Patient (positive occult stool) HPI: The patient is a 77 year old female referred for endoscopy. Luz notes , denies abdominal pain area did the patient notes episodic diarrhea and constipation. More recently, the patient has had more episodes of diarrhea. While denying true pain. She does note some abdominal cramping and periumbilical area. The patient denies nausea or vomiting. She denies hematemesis. She denies melena or hematochezia. The patient had a recent stool for occult blood which was positive. Patient has a recent history of dysphagia. She underwent upper endoscopy with esophageal dilatation on's December 31, 2017. This was performed in [place]. The patient was found to have a 3 cm hiatal hernia irregular GE junction and a shop. He is wearing that was dilated. Pathology returned as chronic active gastritis with H. pylori- like organisms. Negative for dysplasia on the stomach, biopsy, gastric biopsy demonstrated reactive gastric mucosa, negative for metaplasia or dysplasia. Esophageal biopsy returned as active inflammation. H. pylori antibody was positive. The patient was treated with eradication for H. pylori. She's been maintained on proton pump inhibitors. The patient had colonoscopy performed she recalls 5 years previously and [place]. She is uncertain what the findings were or what the recommended follow-up were. Has extensive past medical history - most recently, the patient had a non-ST segment myocardial infarction on May 13. She underwent cardiac catheterization which demonstrated an occluded venous graft, a patent VU graft and a 60% stenosis of the mid LAD. The patient also has a history of supraventricular tachycardia, sleep apnea, morbid obesity, hypertrophic obstructive cardiomyopathy, diabetic neuropathy, diabetes, COPD, chronic renal failure on dialysis with failed dialysis access. Carotid artery disease pacer defibrillator in place. She is referred for endoscopy due to blood in stool. We elected to hold off on endoscopy at that time and wait at least 3 months till after her myocardial infarction. Since that time, she has undergone a surgical procedure for dialysis access in [place]. The patient required intubation and noted dysphagia for the first 2 weeks following that procedure. This dysphagia has since resolved. The patient is impaired with her activities of daily living and uses a scooter. She has a history of heart failure and has a history of undergoing a right sided congestive heart failure with fluid shafts. Her supervisor porcelain department is Dr. Cardona but she has had her most recent cardiac care at [facility] by Dr. Hunter The patient is being seen by me today at the request of Dr. Jameson Kamara MD for my opinion and advice regarding need for endoscopy given chronic and severe medical comorbidities. PAST MEDICAL HISTORY Diagnosis Date - Arthritis - Atrial fibrillation ([facility]) - CAD (coronary artery disease) stents x9, defibrillator, CABG. Seeing Dr. Cardona - Cardiac defibrillator in place - Cardiomegaly - Carotid artery disease (HCC) left - Chronic hypoxemic respiratory failure ([facility]) 07/01/2018 - Chronic kidney disease (CKD) stage G3b/A2, moderately decreased glomerular filtration rate (GFR) between 30-44 mL/min/1.73 square meter and albuminuria creatinine ratio between 30-299 mg/g ([facility]) Dr. Martin - COPD (chronic obstructive pulmonary disease) ([facility]) Dr. Cruz - Depression - Diabetes ([facility]) - Diabetic neuropathy ([facility]) - Edema - ESRD (end stage renal disease) on dialysis ([facility]) [facility], Dr. Martin - GERD (gastroesophageal reflux disease) - Gout with hyperuricemia - HH (hiatus hernia) - HOCM (hypertrophic obstructive cardiomyopathy) ([facility]) S/P Septal Myectomy in 2003. Now with LVEF 50% and mod/severe pulm HTN. - HTN (hypertension) - Hyperlipidemia - Morbid obesity with BMI of 40.0-44.9, adult ([facility]) - Presence of combination internal cardiac defibrillator (ICD) and pacemaker - Sleep apnea 2011 not on CPAP, unable to tolerate mask 02/2017 - SVT (supraventricular tachycardia) ([facility]) NSVT and questionable VT in 2003 post op PAST SURGICAL HISTORY Procedure Laterality Date - CABG (1) VEIN GRAFT AND ARTERIAL GRAFT - CHOLECYSTECTOMY HX - DIALYSIS ACCESS SYSTEM - HEART SURGERY HX 07/18/2004 Septal myectomy and CABG x2 (DEBORAH-LAD, SVG-PDA). - HYSTERECTOMY HX - IANDD PERIANAL ABSCESS - PACEMAKER with defib - PAST SURGICAL HISTORY OF left breast nodule removed - PAST SURGICAL HISTORY OF skin lesions removed - STENT PLACEMENT coronary Current Outpatient Prescriptions: apixaban (ELIQUIS) 5 mg tab(s) Take 1 tablet by mouth twice daily. insulin aspart U-100 (NOVOLOG FLEXPEN U-100 INSULIN) 100 unit/mL inpn Using Sliding Scale: 150-209 1 unit, 210-269 2 units, 270-329 3 units, 330-389 4 units, 390-449 5 units insulin glargine (LANTUS SOLOSTAR U-100 INSULIN) 100 unit/mL (3 mL) inpn Inject 50 Units subcutaneously every morning. insulin glargine (LANTUS SOLOSTAR U-100 INSULIN) 100 unit/mL (3 mL) inpn Inject 32 Units subcutaneously daily at bedtime. carvedilol (COREG) 3.125 mg tablet Take 1 tablet by mouth twice daily with meals. amiodarone (PACERONE) 200 mg tablet Take 1 tablet by mouth once daily. bacitracin zinc (ANTIBIOTIC, BACITRACIN ZINC,) 500 unit/gram ointment Apply 1 application to affected area twice daily. polyethylene glycol 3350 (MIRALAX) 17 gram/dose powder Use 1-2 times daily as needed for constipation. simvastatin (ZOCOR) 40 mg tablet Take 1 tablet by mouth every morning. isosorbide mononitrate ER (IMDUR) 30 mg 24 hr tablet Take 3 tablets by mouth once daily. pregabalin (LYRICA) 25 mg capsule Take 1 tablet PO daily with an additional 1 tablet PO after dialysis MWF metoclopramide HCl (REGLAN) 5 mg tablet Take 1 tablet by mouth three times daily. pantoprazole DR (PROTONIX) 40 mg tablet Take 1 tablet by mouth once daily. senna (SENNA) 8.6 mg tab Take 8.6 mg by mouth once daily. ondansetron (ZOFRAN) 4 mg tablet Take 4 mg by mouth every 8 hours as needed. ipratropium-albuterol (DUONEB) 0.5 mg-3 mg(2.5 mg base)/3 mL nebu Inhale 3 mL as instructed every 4 hours while awake. And prn for wheezing/shortness of breath. budesonide (PULMICORT) 0.5 mg/2 mL nebulizer solution Use 2 mL via nebulizer once daily. INHALE 2 ML BY NEBULIZER OVER 5-15 MINUTES EVERY 12 HOURS. nystatin (NYSTOP) powder Apply 1 application to affected area three times daily. guaiFENesin-dextromethorphan (ROBITUSSIN DM) 100-10 mg/5 mL syrup Take 5-10 mL by mouth every 6 hours as needed for Cough. nitroglycerin sublingual (NITROQUICK) 0.4 mg SL tablet Dissolve 1 tablet under the tongue every 5 minutes as needed. OXYGEN, HOME THERAPY, Inhale 2.5 L/min as instructed continuous. 3 L/min when leaves home. No current facility-administered medications for this visit. ALLERGIES: Aspirin; Bactrim [Sulfamethoxazole-Trimethoprim]; Latex; Penicillins; Tetracycline; Atorvastatin; Codeine; Dilaudid [Hydromorphone (Bulk)]; Meperidine; Pentazocine; Pioglitazone; Propoxyphene PERSONAL HISTORY: Social History Marital status: Spouse name: Years of education: Number of children: Social History Main Topics Smoking status: Former Smoker Packs/day: 2.50 Years: 43.00 Types: Cigarettes Start date: 1961 Quit date: 07/07/2004 Smokeless tobacco: Never Used Alcohol use: No Drug use: No Other Topics Concern Caffeine Concern Yes Comment:coffee 1 cup daily Special Diet No Comment:Regular Exercise No Comment:no unable, due to SOB x several months. Social History Narrative Patient and daughter live together. FAMILY HISTORY: FAMILY HISTORY Problem Relation Age of Onset - Hypertension Mother living at age 93, HTN - Heart Failure Mother [place] - Cancer Father age 71, lung cancer - Heart Attack Sister - COPD Brother - Heart Paternal Grandmother - Heart Paternal Grandfather - Heart Sister - Diabetes Sister - Heart Sister - Breast Cancer Sister - Diabetes Sister - Hypertension Brother - Diabetes Brother REVIEW OF SYMPTOMS: The review of systems data was entered by the nurse and reviewed by me Nursing Notes: Madelyn Alvaro RHODES 08/11/2018 11:04 AM Signed REVIEW OF SYSTEMS: General: The patient NOTES fatigue, denies weight loss, NOTES weight gain, NOTES feeling hot, and denies feelings of cold. Eyes: The patient denies glaucoma, NOTES eye injury/surgery, wears glasses or contacts. Ear/Nose/Throat: The patient denies allergies, denies hayfever, denies ear infections, and NOTES bloody noses. Cardiovascular: The patient NOTES chest pain, NOTES heart disease, denies high blood pressure,NOTES cardiac stent, denies prior heart attack, NOTES irregular heart beat, NOTES high cholesterol, NOTES poor circulation, NOTES heart failure, other cardiac issues, NOTES claudication, NOTES cold feet, denies peripheral arterial stent. Respiratory: The patient denies tuberculosis, NOTES pneumonia, NOTES frequent cough, denies pulmonary embolism, NOTES shortness of breath, and denies coughing up blood. Gastrointestinal: The patient NOTES difficulty swallowing, NOTES acid reflux, denies ulcers, denies vomiting, denies jaundice/hepatitis, NOTES gallbladder problems, denies black or tarry stools, NOTES hemorrhoids, NOTES bleeding from rectum, denies diverticulitis, denies constipation, denies diarrhea, denies loss of stool control, and NOTES hernias. Kidney/Bladder: The patient denies kidney stones, denies urine infections, and denies bloody urine.NOTES renal failure Skin: The patient denies a history of skin cancer, denies bleeding/changing moles, and denies a history of skin rash. Neurologic: The patient denies a history of epilepsy/convulsions, denies headaches, denies head/spinal injuries, and denies stroke/TIA. Psychiatric: The patient denies psychiatric medications, denies depression, and denies voices, denies substance abuse. Endocrine: The patient denies thyroid disorders, NOTES diabetes, and denies hormonal problems. Hematologic: The patient denies a history of bruising, denies bleeding, and denies anemia, denies blood clots. Infections: The patient denies a history of measles and mumps, denies rheumatic fever, and denies sexually transmitted diseases. Musculoskeletal: The patient denies back pain/injury, denies back problems, denies sciatica, NOTES knee/foot trouble, denies arthritis, or NOTES gout. ? ? When was patient's last Mammogram screening greater than 5 years ? ? Last Colonoscopy: 2011 PHYSICAL EXAMINATION: General: The patient is 77 year old female, well nourished, well hydrated in no acute distress. The patient is oriented to time, place, and person. VITALS: Blood pressure (!) 86/48, weight 92.5 kg (204 lb). Body mass index is 31.02 kg/m?. HEENT: Normal cephalic, ataumatic, pupils are equally round, sclera are anicteric, mucous membranes are moist, oropharynx is clear. Neck has no masses, asymmetry or lymphadenopathy. Thyroid is unremarkable. Patient on continuous oxygen Respiratory: Clear to auscultation and percussion. Normal respiratory excursion and pattern. - Distant Cardiac: Examination is regular rate and rhythm. Distant Abdominal exam: Soft, nontender, with no palpable masses. No hepatosplenomegaly. No palpable hernias. Rectal exam: exam deferred Extremities: no clubbing, cyanosis or edema. No adenopathy. Other: LABORATORY VALUES: As Noted RADIOLOGIC STUDIES: As Noted Assessment IMPRESSION: Heme positive stools, recent upper endoscopy for gastritis and dysphagia with a Schatzki's ring present, colonoscopy, approximate 5 years previously, recent myocardial infarction, severe comorbidities PLAN: I plan to perform upper and lower endoscopy. We discussed the risks and benefits of the planned endoscopy. I have informed the patient that complications can occur including failure to complete the endoscopy and perforation. The patient had the opportunity to ask questions concerning the planned endoscopy. My staff has also explained the procedure to the patient in understandable terms and has given the patient printed material concerning the procedure. The patient freely consents to surgery. Bowel prep will be challenging due to the patient's cardiomyopathy and renal failure to avoid dehydration and/or hypotension. This will likely need to be performed in hospital for bowel prep. I plan for monitored anesthetic care. Diagnoses: (K62.5) Rectal bleeding (primary encounter diagnosis) (N17.9, N18.3) Acute renal failure superimposed on stage 3 chronic kidney disease, unspecified acute renal failure type (HCC) (Z95.0) Pacemaker (I25.10) Coronary artery disease, angina presence unspecified, unspecified vessel or lesion type, unspecified whether rincon or transplanted heart (K21.9) Gastroesophageal reflux disease, esophagitis presence not specified My findings have been communicated to Dr. Jameson Kamara MD via shared medical record. This note will be forwarded to Dr. Jameson Kamara MD. Return to Clinic: The patient is instructed to follow-up with me as needed. Dina Claudio MD Referring Provider: ADRIEL PRINGLE ([facility]) [[id number]] Allergies As of Date: 08/11/2018 Noted Allergy Reaction ASPIRIN 01/20/2018 14 - Other: See Comments Comments: Patient states that she bled out every orifice, sts not allowed to take it at all. Patient states she was bleeding out of nose and mouth after one dose. BACTRIM (SULFAMETHOXAZOLE-TRIMETH*05/17/2017 14 - Other: See Comments Comments: My throat swells up. LATEX 05/17/2017 2 - Rash 9 - Itching Comments: Itching and welts. No wheezing or shortness of breath. PENICILLINS 07/14/2004 2 - Rash 9 - Itching Comments: Tolerated ceftriaxone during 11/2017 admission and cefepime during 12/2017 admission TETRACYCLINE 09/29/2010 2 - Rash 8 - GI Upset Comments: Emesis and diarrhea. ATORVASTATIN 05/17/2017 2 - Rash CODEINE 05/17/2017 14 - Other: See Comments Comments: Numbness DILAUDID (HYDROMORPHONE (BULK)) 05/17/2017 1 - Mental Status Change MEPERIDINE 07/14/2004 PENTAZOCINE 07/14/2004 PIOGLITAZONE 05/17/2017 16 - Unknown PROPOXYPHENE 07/14/2004 Date Reviewed: 08/11/2018 Reviewed by: Dina Claudio - Fully Assessed Reason for Visit: Dysphagia [536] Primary Visit Diagnosis:Rectal bleeding [K62.5] Other Visit Diagnoses:Acute renal failure superimposed on stage 3 chronic kidney disease, unspecified acute renal failure type (HCC) [N17.9, N18.3] Pacemaker [Z95.0] Coronary artery disease, angina presence unspecified, unspecified vessel or lesion type, unspecified whether rincon or transplanted heart [I25.10] Gastroesophageal reflux disease, esophagitis presence not specified [K21.9] Prescriptions as of 08/11/2018 Sig: APIXABAN 5 MG TABLET Take 1 tablet by mouth twice * INSULIN ASPART U-100 100 UNI* Using Sliding Scale: 150-209* INSULIN GLARGINE (U-100) 100 * Inject 50 Units subcutaneousl* INSULIN GLARGINE (U-100) 100 * Inject 32 Units subcutaneousl* CARVEDILOL 3.125 MG TABLET Take 1 tablet by mouth twice * AMIODARONE 200 MG TABLET Take 1 tablet by mouth once d* BACITRACIN ZINC 500 UNIT/GRAM* Apply 1 application to affect* POLYETHYLENE GLYCOL 3350 17 G* Use 1-2 times daily as needed* SIMVASTATIN 40 MG TABLET Take 1 tablet by mouth every * ISOSORBIDE MONONITRATE ER 30 * Take 3 tablets by mouth once * PREGABALIN 25 MG CAPSULE Take 1 tablet PO daily with a* METOCLOPRAMIDE 5 MG TABLET Take 1 tablet by mouth three * PANTOPRAZOLE 40 MG TABLET,DEL* Take 1 tablet by mouth once d* SENNOSIDES 8.6 MG TABLET Take 8.6 mg by mouth once carlos* ONDANSETRON HCL 4 MG TABLET Take 4 mg by mouth every 8 ho* IPRATROPIUM-ALBUTEROL 0.5 MG-* Inhale 3 mL as instructed leanne* BUDESONIDE 0.5 MG/2 ML SUSPEN* Use 2 mL via nebulizer once d* NYSTATIN 100,000 UNIT/GRAM TO* Apply 1 application to affect* DEXTROMETHORPHAN-GUAIFENESIN * Take 5-10 mL by mouth every 6* NITROGLYCERIN 0.4 MG SUBLINGU* Dissolve 1 tablet under the t* OXYGEN (HOME THERAPY) Inhale 2.5 L/min as instructe* Problem List As Of Date 08/11/2018 Noted Resolved HOCM (hypertrophic obstructive cardiomyopathy) * 01/23/2018 Priority: I More... SVT (supraventricular tachycardia) ([facility]) [I47.1] 01/21/2018 More... Carotid artery disease (HCC) [I77.9] 01/22/2018 CAD (coronary artery disease) [I25.10] Priority: E More... Hypertension [I10] Priority: L More... Hyperlipidemia [E78.5] Pneumonia [J18.9] 10/27/2017 More... COPD (chronic obstructive pulmonary disease) (H* Priority: F More... Sleep apnea [G47.30] Priority: I More... HH (hiatus hernia) [K44.9] 01/21/2018 GERD (gastroesophageal reflux disease) [K21.9] Priority: K More... More... Arthritis [M19.90] Numbness and tingling of right leg [R20.0, R20.* 01/21/2018 Depression [F32.9] Atrial fibrillation (HCC) [I48.91] INVALID FOR* Priority: C More... Uncontrolled type 2 diabetes mellitus with stag*INVALID FOR* Priority: H More... More... More... Heart failure, systolic, acute (HCC) [I50.21] INVALID FOR*01/21/2018 More... Obesity [E66.09] INVALID FOR* Priority: M More... Gout [M10.9] Pacemaker [Z95.0] Priority: D More... Chronic combined systolic and diastolic CHF (co*INVALID FOR* Priority: B More... Elevated troponin [R74.8] INVALID FOR*01/22/2018 Priority: G More... Pulmonary hypertension (HCC) [I27.20] INVALID FOR* Oral thrush [B37.0] INVALID FOR*01/21/2018 Hyponatremia [E87.1] INVALID FOR* Priority: J More... Hyperkalemia [E87.5] INVALID FOR*01/22/2018 Priority: J Chest pain in adult [R07.9] INVALID FOR*02/12/2018 Priority: A More... Acute renal failure superimposed on stage 3 chr*INVALID FOR* Priority: A More... Obesity, Class II, BMI 35-39.9 [E66.9] INVALID FOR* ESRD on dialysis (HCC) [N18.6, Z99.2] INVALID FOR* More... Chronic hypoxemic respiratory failure (HCC) [J9*INVALID FOR* Visit Notes: >> Madelyn John LPN Gwen Aug 11, 2018 11:04 AM Status: Signed REVIEW OF SYSTEMS: General: The patient NOTES fatigue, denies weight loss, NOTES weight gain, NOTES feeling hot, and denies feelings of cold. Eyes: The patient denies glaucoma, NOTES eye injury/surgery, wears glasses or contacts. Ear/Nose/Throat: The patient denies allergies, denies hayfever, denies ear infections, and NOTES bloody noses. Cardiovascular: The patient NOTES chest pain, NOTES heart disease, denies high blood pressure,NOTES cardiac stent, denies prior heart attack, NOTES irregular heart beat, NOTES high cholesterol, NOTES poor circulation, NOTES heart failure, other cardiac issues, NOTES claudication, NOTES cold feet, denies peripheral arterial stent. Respiratory: The patient denies tuberculosis, NOTES pneumonia, NOTES frequent cough, denies pulmonary embolism, NOTES shortness of breath, and denies coughing up blood. Gastrointestinal: The patient NOTES difficulty swallowing, NOTES acid reflux, denies ulcers, denies vomiting, denies jaundice/hepatitis, NOTES gallbladder problems, denies black or tarry stools, NOTES hemorrhoids, NOTES bleeding from rectum, denies diverticulitis, denies constipation, denies diarrhea, denies loss of stool control, and NOTES hernias. Kidney/Bladder: The patient denies kidney stones, denies urine infections, and denies bloody urine.NOTES renal failure Skin: The patient denies a history of skin cancer, denies bleeding/changing moles, and denies a history of skin rash. Neurologic: The patient denies a history of epilepsy/convulsions, denies headaches, denies head/spinal injuries, and denies stroke/TIA. Psychiatric: The patient denies psychiatric medications, denies depression, and denies voices, denies substance abuse. Endocrine: The patient denies thyroid disorders, NOTES diabetes, and denies hormonal problems. Hematologic: The patient denies a history of bruising, denies bleeding, and denies anemia, denies blood clots. Infections: The patient denies a history of measles and mumps, denies rheumatic fever, and denies sexually transmitted diseases. Musculoskeletal: The patient denies back pain/injury, denies back problems, denies sciatica, NOTES knee/foot trouble, denies arthritis, or NOTES gout. ? ? When was patient's last Mammogram screening greater than 5 years ? ? Last Colonoscopy: 2011 Encounter Status:Closed by DINA CLAUDIO MD on 08/11/18 CNPTOUTREACH Observed: 08/11/2018 Status: COMPLETED Source: [place] 12:00 AM [facility] REPOSITORY Patient Outreach (FAMPWS) LUZ BACA ([id number]) 1940 F Date Time Provider Department 08/11/18 REMI KENNEDY (RN) [facility] During your visit today, we recorded the following information about you: Remi Kennedy RN 08/11/2018 5:16 PM Signed PRIMARY CARE COORDINATION FOLLOW-UP NOTE Provider Action/FYI Dgt states pt will have colonoscopy with Dr. Claudio 08/18 Patient identified by name and date of . YES Spoke to Octavia mesa Summary: Read result note: Notes recorded by Jameson Adams) Koffi on 08/05/2018 at 12:00 PM EDT A1C down to 6.3 from 6.8 two months ago. Decreased her lantus at last OV this month. Please contact patient for glucose readings from the last 2 weeks. Dgt verbalized understanding. She isn't at home and will call back tomorrow with BS Watermelon Inspector plan for next outreach: Will follow up 2 weeks Signature Remi Kennedy RN August 11, 2018 Remi Kennedy RN 08/12/2018 9:56 AM Signed PRIMARY CARE COORDINATION FOLLOW-UP NOTE Provider Action/FYI ORDERS PENDED FOR REFILL IF YOU APPROVE Does PCP wants refills HH nurse will fax blood sugars No chest pain or SOB Only complaint is foot pain. Dr Rodriguez removed some skin on toe and it is still bleeding slightly so dgt is applying bandaid Pt will return to [facility] for new diabetic shoes Patient identified by name and date of . YES Spoke to Octavia mesa Summary: Home Health nurse will fax blood sugars. No chest pain and breathing is at baseline. Only complaint is foot pain, Dr. Rodriguez had removed some skin on pt's toe Patient phones requesting refills as follows: Pending Prescriptions Disp Refills CARVEDILOL 3.125 MG TABLET 60 tablet 0 Sig: Take 1 tablet by mouth twice daily with meals. JF: No AMIODARONE 200 MG TABLET 30 tablet 0 Sig: Take 1 tablet by mouth once daily. JF: No Please review and advise. Watermelon Inspector plan for next outreach: Will follow up one month Signature Remi Kennedy RN August 12, 2018 Jameson Kamara MD 08/12/2018 10:15 AM Signed 30 day refill sent as requested. F/u with specialists as recommended. Will await glucose readings. Allergies As of Date: 08/11/2018 Noted Allergy Reaction ASPIRIN 01/20/2018 14 - Other: See Comments Comments: Patient states that she bled out every orifice, sts not allowed to take it at all. Patient states she was bleeding out of nose and mouth after one dose. BACTRIM (SULFAMETHOXAZOLE-TRIMETH*05/17/2017 14 - Other: See Comments Comments: My throat swells up. LATEX 05/17/2017 2 - Rash 9 - Itching Comments: Itching and welts. No wheezing or shortness of breath. PENICILLINS 07/14/2004 2 - Rash 9 - Itching Comments: Tolerated ceftriaxone during 11/2017 admission and cefepime during 12/2017 admission TETRACYCLINE 09/29/2010 2 - Rash 8 - GI Upset Comments: Emesis and diarrhea. 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 [facility] [3612] Primary Visit Diagnosis:Hypertension [I10] Other Visit Diagnoses:Chronic combined systolic and diastolic CHF (congestive heart failure) (HCC) [I50.42] Coronary artery disease, angina presence unspecified, unspecified vessel or lesion type, unspecified whether rincon or transplanted heart [I25.10] Atrial fibrillation, unspecified type (HCC) [I48.91] Order(s):carvedilol (COREG) 3.125 mg tabletTake 1 tablet by mouth twice daily with meals.Disp: 60 tabletRfl: 0 amiodarone (PACERONE) 200 mg tabletTake 1 tablet by mouth once daily.Disp: 30 tabletRfl: 0 Prescriptions as of 08/11/2018 Sig: CARVEDILOL 3.125 MG TABLET Take 1 tablet by mouth twice * AMIODARONE 200 MG TABLET Take 1 tablet by mouth once d* APIXABAN 5 MG TABLET Take 1 tablet by mouth twice * INSULIN ASPART U-100 100 UNI* Using Sliding Scale: 150-209* INSULIN GLARGINE (U-100) 100 * Inject 50 Units subcutaneousl* INSULIN GLARGINE (U-100) 100 * Inject 32 Units subcutaneousl* BACITRACIN ZINC 500 UNIT/GRAM* Apply 1 application to affect* POLYETHYLENE GLYCOL 3350 17 G* Use 1-2 times daily as needed* SIMVASTATIN 40 MG TABLET Take 1 tablet by mouth every * ISOSORBIDE MONONITRATE ER 30 * Take 3 tablets by mouth once * PREGABALIN 25 MG CAPSULE Take 1 tablet PO daily with a* METOCLOPRAMIDE 5 MG TABLET Take 1 tablet by mouth three * PANTOPRAZOLE 40 MG TABLET,DEL* Take 1 tablet by mouth once d* SENNOSIDES 8.6 MG TABLET Take 8.6 mg by mouth once carlos* ONDANSETRON HCL 4 MG TABLET Take 4 mg by mouth every 8 ho* IPRATROPIUM-ALBUTEROL 0.5 MG-* Inhale 3 mL as instructed leanne* BUDESONIDE 0.5 MG/2 ML SUSPEN* Use 2 mL via nebulizer once d* NYSTATIN 100,000 UNIT/GRAM TO* Apply 1 application to affect* DEXTROMETHORPHAN-GUAIFENESIN * Take 5-10 mL by mouth every 6* NITROGLYCERIN 0.4 MG SUBLINGU* Dissolve 1 tablet under the t* OXYGEN (HOME THERAPY) Inhale 2.5 L/min as instructe* Problem List As Of Date 08/11/2018 Noted Resolved HOCM (hypertrophic obstructive cardiomyopathy) * 01/23/2018 Priority: I More... SVT (supraventricular tachycardia) ([facility]) [I47.1] 01/21/2018 More... Carotid artery disease ([facility]) [I77.9] 01/22/2018 CAD (coronary artery disease) [I25.10] Priority: E More... Hypertension [I10] Priority: L More... Hyperlipidemia [E78.5] Pneumonia [J18.9] 10/27/2017 More... COPD (chronic obstructive pulmonary disease) (H* Priority: F More... Sleep apnea [G47.30] Priority: I More... HH (hiatus hernia) [K44.9] 01/21/2018 GERD (gastroesophageal reflux disease) [K21.9] Priority: K More... More... Arthritis [M19.90] Numbness and tingling of right leg [R20.0, R20.* 01/21/2018 Depression [F32.9] Atrial fibrillation (HCC) [I48.91] INVALID FOR* Priority: C More... Uncontrolled type 2 diabetes mellitus with stag*INVALID FOR* Priority: H More... More... More... Heart failure, systolic, acute (HCC) [I50.21] INVALID FOR*01/21/2018 More... Obesity [E66.09] INVALID FOR* Priority: M More... Gout [M10.9] Pacemaker [Z95.0] Priority: D More... Chronic combined systolic and diastolic CHF (co*INVALID FOR* Priority: B More... Elevated troponin [R74.8] INVALID FOR*01/22/2018 Priority: G More... Pulmonary hypertension (HCC) [I27.20] INVALID FOR* Oral thrush [B37.0] INVALID FOR*01/21/2018 Hyponatremia [E87.1] INVALID FOR* Priority: J More... Hyperkalemia [E87.5] INVALID FOR*01/22/2018 Priority: J Chest pain in adult [R07.9] INVALID FOR*02/12/2018 Priority: A More... Acute renal failure superimposed on stage 3 chr*INVALID FOR* Priority: A More... Obesity, Class II, BMI 35-39.9 [E66.9] INVALID FOR* ESRD on dialysis (HCC) [N18.6, Z99.2] INVALID FOR* More... Chronic hypoxemic respiratory failure (HCC) [J9*INVALID FOR* Prescriptions ordered this encounter Disp Refills Start End CARVEDILOL 3.125 MG TABLET 60 t* 0 08/12/2018 09/11/2018 Route: ORAL Sig: Take 1 tablet by mouth twice daily with meals. AMIODARONE 200 MG TABLET 30 t* 0 08/12/2018 09/11/2018 Route: ORAL Sig: Take 1 tablet by mouth once daily. Medications Discontinued During This Encounter carvedilol (COREG) 3.125 mg tablet 60 t* 0 07/14/2018 08/12/2018 Route: ORAL Sig: Take 1 tablet by mouth twice daily with meals. Disc: Reason for discontinue is not on file. amiodarone (PACERONE) 200 mg tablet 30 t* 0 07/14/2018 08/12/2018 Route: ORAL Sig: Take 1 tablet by mouth once daily. Disc: Reason for discontinue is not on file. Encounter Status:Closed by REMI KENNEDY on 08/15/18 PROGRESS Observed: 08/09/2018 Status: COMPLETED Source: [place] 10:18 AM [facility] REPOSITORY O ID: [id number] Author: Jose C Rodriguez Service: (none) Author Type: Physician Type: Progress Notes Filed: 08/10/2018 7:03 AM Note Text: Follow up podiatric office visit for: Chief Complaint: This 77 year old who presents for follow up pad and blisters of b/l feet Patient was seen 07/26/18. She had issues in past with diabetic shoes so she purchased new shoes. She has not been wearing the shoes she purchased. She has returned to using crocs. She has appointment with [facility] later today Of note, she has seen Dr. Hogan and their has been discussion regarding possible balloon angioplasty. Patient is having more rest pain due to pad. Patient is concerned about scaling of left foot PAIN EVALUATION 08/09/2018 Pain Score: 7 Pain Location: Other: See Comment bilateral feet Description: Throbbing Duration Amount of Time: - several Duration Units: Years Frequency: Continuous Intervention: Relaxation Hemoglobin A1C Date Value Ref Range Status 08/04/2018 6.3 (H) 4.3 - 5.6 % Final PCP: Jameson Kamara MD PAST MEDICAL HISTORY Diagnosis Date - Arthritis - Atrial fibrillation (HCC) - CAD (coronary artery disease) stents x9, defibrillator, CABG. Seeing Dr. Cardona - Cardiac defibrillator in place - Cardiomegaly - Carotid artery disease ([facility]) left - Chronic hypoxemic respiratory failure ([facility]) 07/01/2018 - Chronic kidney disease (CKD) stage G3b/A2, moderately decreased glomerular filtration rate (GFR) between 30-44 mL/min/1.73 square meter and albuminuria creatinine ratio between 30-299 mg/g ([facility]) Dr. Martin - COPD (chronic obstructive pulmonary disease) ([facility]) Dr. rCuz - Depression - Diabetes ([facility]) - Diabetic neuropathy ([facility]) - Edema - ESRD (end stage renal disease) on dialysis ([facility]) [facility], Dr. Martin - GERD (gastroesophageal reflux disease) - Gout with hyperuricemia - HH (hiatus hernia) - HOCM (hypertrophic obstructive cardiomyopathy) ([facility]) S/P Septal Myectomy in 2003. Now with LVEF 50% and mod/severe pulm HTN. - HTN (hypertension) - Hyperlipidemia - Morbid obesity with BMI of 40.0-44.9, adult ([facility]) - Presence of combination internal cardiac defibrillator (ICD) and pacemaker - Sleep apnea 2011 not on CPAP, unable to tolerate mask 02/2017 - SVT (supraventricular tachycardia) ([facility]) NSVT and questionable VT in 2003 post op Current Outpatient Prescriptions: apixaban (ELIQUIS) 5 mg tab(s) Take 1 tablet by mouth twice daily. insulin aspart U-100 (NOVOLOG FLEXPEN U-100 INSULIN) 100 unit/mL inpn Using Sliding Scale: 150-209 1 unit, 210-269 2 units, 270- 329 3 units, 330-389 4 units, 390-449 5 units insulin glargine (LANTUS SOLOSTAR U-100 INSULIN) 100 unit/mL (3 mL) inpn Inject 50 Units subcutaneously every morning. insulin glargine (LANTUS SOLOSTAR U-100 INSULIN) 100 unit/mL (3 mL) inpn Inject 32 Units subcutaneously daily at bedtime. carvedilol (COREG) 3.125 mg tablet Take 1 tablet by mouth twice daily with meals. amiodarone (PACERONE) 200 mg tablet Take 1 tablet by mouth once daily. bacitracin zinc (ANTIBIOTIC, BACITRACIN ZINC,) 500 unit/gram ointment Apply 1 application to affected area twice daily. polyethylene glycol 3350 (MIRALAX) 17 gram/dose powder Use 1-2 times daily as needed for constipation. simvastatin (ZOCOR) 40 mg tablet Take 1 tablet by mouth every morning. isosorbide mononitrate ER (IMDUR) 30 mg 24 hr tablet Take 3 tablets by mouth once daily. pregabalin (LYRICA) 25 mg capsule Take 1 tablet PO daily with an additional 1 tablet PO after dialysis MWF metoclopramide HCl (REGLAN) 5 mg tablet Take 1 tablet by mouth three times daily. pantoprazole DR (PROTONIX) 40 mg tablet Take 1 tablet by mouth once daily. senna (SENNA) 8.6 mg tab Take 8.6 mg by mouth once daily. ondansetron (ZOFRAN) 4 mg tablet Take 4 mg by mouth every 8 hours as needed. ipratropium-albuterol (DUONEB) 0.5 mg-3 mg(2.5 mg base)/3 mL nebu Inhale 3 mL as instructed every 4 hours while awake. And prn for wheezing/shortness of breath. budesonide (PULMICORT) 0.5 mg/2 mL nebulizer solution Use 2 mL via nebulizer once daily. INHALE 2 ML BY NEBULIZER OVER 5-15 MINUTES EVERY 12 HOURS. nystatin (NYSTOP) powder Apply 1 application to affected area three times daily. guaiFENesin-dextromethorphan (ROBITUSSIN DM) 100-10 mg/5 mL syrup Take 5-10 mL by mouth every 6 hours as needed for Cough. nitroglycerin sublingual (NITROQUICK) 0.4 mg SL tablet Dissolve 1 tablet under the tongue every 5 minutes as needed. OXYGEN, HOME THERAPY, Inhale 2.5 L/min as instructed continuous. 3 L/min when leaves home. No current facility-administered medications for this visit. ALLERGIES Allergen Reactions - Aspirin Other: See Comments Patient states that she bled out every orifice, sts not allowed to take it at all. Patient states she was bleeding out of nose and mouth after one dose. - Bactrim [Sulfametho* Other: See Comments My throat swells up. - Latex Rash, Itching Itching and welts. No wheezing or shortness of breath. - Penicillins Rash, Itching Tolerated ceftriaxone during 11/2017 admission and cefepime during 12/2017 admission - Tetracycline Rash, GI Upset Emesis and diarrhea. - Atorvastatin Rash - Codeine Other: See Comments Numbness - Dilaudid [Hydromorp* Mental Status Change - Meperidine - Pentazocine - Pioglitazone Unknown - Propoxyphene PAST SURGICAL HISTORY Procedure Laterality Date - CABG (1) VEIN GRAFT AND ARTERIAL GRAFT - CHOLECYSTECTOMY HX - DIALYSIS ACCESS SYSTEM - HEART SURGERY HX 07/18/2004 Septal myectomy and CABG x2 (DEBORAH-LAD, SVG-PDA). - HYSTERECTOMY HX - IANDD PERIANAL ABSCESS - PACEMAKER with defib - PAST SURGICAL HISTORY OF left breast nodule removed - PAST SURGICAL HISTORY OF skin lesions removed - STENT PLACEMENT coronary REVIEW OF SYSTEMS: CONSTITUTIONAL: No fevers, chills, nightsweats, unintended weight loss HEENT: Denies frequent or severe heaches, nasal congestion/sinus symptoms, problematic allergy problems. EYES: No diplopia or blurry vision. CARDIOVASCULAR: No chest pain, dyspnea, palpitations, orthopnea, PND, ankle edema. PULM: No dyspnea, unexplained cough. GI: No dysphagia/odynophagia, problematic reflux, constipation, diarrhea, changes in stool habits, hematochezia, melena. : No new urinary complaints, including dysuria, gross hematuria or pyuria. NEURO: No new balance problems, peripheral weakness/paresthesias or numbness of concern. MUSC-SKEL: Pain in left foot PSY: No concerns regarding depression, anxiety or panic. INTEGUMENTARY: No new skin changes (rash, new or changing mole, new growth) Physical Exam: Constitutional: Pt is a well developed 77 year old female who is alert, oriented, cooperative and in no apparent distress. OBJECTIVE: Vascular: DP and PT pulses are nonpalpable b/l. CFT is delayed. Hair growth is decreased. Skin temperature is cool Dermatological: Nails 1-5 b/l are normal. Webspaces clean and dry 1-4 b/l. Skin appears dry b/l. Hyperkeratosis to distal left 1st and 2nd toe. No ulcerations present. Musculoskeletal/Orthopaedic: Patient has pain to palpation of left midfoot Plantarflexion, dorsiflexion, inversion and eversion is 5/5 ASSESSMENT: (S90.425A) Blister of toe of left foot, initial encounter (primary encounter diagnosis) (E11.49) Other diabetic neurological complication associated with type 2 diabetes mellitus (HCC) (I73.9) PAD (peripheral artery disease) ([facility]) PLAN: 1. History and physical examination completed today. 2. Blisters of left hallux and left 2nd toe now appear healed. There is scaling that is present and this was removed with sanding disk. Recommend continued use of lotion. 3. She has returned to wearing crocs. Myself and her pcp have instructed her not to wear these. She recently purchased new shoes that were evaluated and found to fit her well. Instructed her to wear these instead 4. She has appointment with [facility] for diabetic shoes. She will wear her diabetic shoes once she wears them 5. Reviewed xrays of left foot. No signs of infection. Discussed pain of left foot. Likely that of arthritis. Continue with appropriate shoes . Anticipate relief with diabetic shoe and inserts 6. F/u in 2 weeks Jose C Rodriguez DPM PROGRESS Observed: 08/09/2018 Status: COMPLETED Source: [place] 9:55 AM [facility] REPOSITORY HNO ID: [id number] Author: Katie Gonzalez RN Service: (none) Author Type: (none) Type: Progress Notes Filed: 08/10/2018 7:03 AM Note Text: AMB ROOMING INTAKE FLOWSHEET DATA Risk Screening Do you have concerns about personal safety or safety in the home?: No Pain Pain Score: 7/10 Pain Location: Other: See Comment (bilateral feet) Description: Throbbing Duration Amount of Time: (several) Duration Units: Years Frequency: Continuous Intervention: Relaxation Patient presents for f/u on blood blister, L hallux. Patient's daughter states they were putting betadine on blister and it seems to have dried up. Pt presents wearing crocs to her appointment today but states she has an appointment later today with [employer] for new diabetic shoes. HAYLEY Observed: 08/09/2018 Status: COMPLETED Source: [place] 9:40 AM [facility] REPOSITORY Office Visit (PODIWS) KEVENLUZ ([id number]) 1940 F Date Time Provider Department 08/09/18 9:40 AM JOSE C RODRIGUEZ During your visit today, we recorded the following information about you: Katie Gonzalez RN 08/10/2018 7:03 AM Signed AMB ROOMING INTAKE FLOWSHEET DATA Risk Screening Do you have concerns about personal safety or safety in the home?: No Pain Pain Score: 10 Pain Location: Other: See Comment (bilateral feet) Description: Throbbing Duration Amount of Time: (several) Duration Units: Years Frequency: Continuous Intervention: Relaxation Patient presents for f/u on blood blister, L hallux. Patient's daughter states they were putting betadine on blister and it seems to have dried up. Pt presents wearing crocs to her appointment today but states she has an appointment later today with [facility] for new diabetic shoes. Jose C Rodriguez DPM 08/10/2018 7:03 AM Signed Follow up podiatric office visit for: Chief Complaint: This 77 year old who presents for follow up pad and blisters of b/l feet Patient was seen 07/26/18. She had issues in past with diabetic shoes so she purchased new shoes. She has not been wearing the shoes she purchased. She has returned to using crocs. She has appointment with [facility] later today Of note, she has seen Dr. Hogan and their has been discussion regarding possible balloon angioplasty. Patient is having more rest pain due to pad. Patient is concerned about scaling of left foot PAIN EVALUATION 08/09/2018 Pain Score: 7 Pain Location: Other: See Comment bilateral feet Description: Throbbing Duration Amount of Time: - several Duration Units: Years Frequency: Continuous Intervention: Relaxation Hemoglobin A1C Date Value Ref Range Status 08/04/2018 6.3 (H) 4.3 - 5.6 % Final PCP: Jameson Kamara MD PAST MEDICAL HISTORY Diagnosis Date - Arthritis - Atrial fibrillation (HCC) - CAD (coronary artery disease) stents x9, defibrillator, CABG. Seeing Dr. Cardona - Cardiac defibrillator in place - Cardiomegaly - Carotid artery disease (HCC) left - Chronic hypoxemic respiratory failure ([facility]) 07/01/2018 - Chronic kidney disease (CKD) stage G3b/A2, moderately decreased glomerular filtration rate (GFR) between 30-44 mL/min/1.73 square meter and albuminuria creatinine ratio between 30-299 mg/g ([facility]) Dr. Martin - COPD (chronic obstructive pulmonary disease) ([facility]) Dr. Cruz - Depression - Diabetes ([facility]) - Diabetic neuropathy ([facility]) - Edema - ESRD (end stage renal disease) on dialysis ([facility]) [facility], Dr. Martin - GERD (gastroesophageal reflux disease) - Gout with hyperuricemia - HH (hiatus hernia) - HOCM (hypertrophic obstructive cardiomyopathy) ([facility]) S/P Septal Myectomy in 2003. Now with LVEF 50% and mod/severe pulm HTN. - HTN (hypertension) - Hyperlipidemia - Morbid obesity with BMI of 40.0-44.9, adult ([facility]) - Presence of combination internal cardiac defibrillator (ICD) and pacemaker - Sleep apnea 2011 not on CPAP, unable to tolerate mask 02/2017 - SVT (supraventricular tachycardia) ([facility]) NSVT and questionable VT in 2003 post op Current Outpatient Prescriptions: apixaban (ELIQUIS) 5 mg tab(s) Take 1 tablet by mouth twice daily. insulin aspart U-100 (NOVOLOG FLEXPEN U-100 INSULIN) 100 unit/mL inpn Using Sliding Scale: 150-209 1 unit, 210-269 2 units, 270-329 3 units, 330-389 4 units, 390-449 5 units insulin glargine (LANTUS SOLOSTAR U-100 INSULIN) 100 unit/mL (3 mL) inpn Inject 50 Units subcutaneously every morning. insulin glargine (LANTUS SOLOSTAR U-100 INSULIN) 100 unit/mL (3 mL) inpn Inject 32 Units subcutaneously daily at bedtime. carvedilol (COREG) 3.125 mg tablet Take 1 tablet by mouth twice daily with meals. amiodarone (PACERONE) 200 mg tablet Take 1 tablet by mouth once daily. bacitracin zinc (ANTIBIOTIC, BACITRACIN ZINC,) 500 unit/gram ointment Apply 1 application to affected area twice daily. polyethylene glycol 3350 (MIRALAX) 17 gram/dose powder Use 1-2 times daily as needed for constipation. simvastatin (ZOCOR) 40 mg tablet Take 1 tablet by mouth every morning. isosorbide mononitrate ER (IMDUR) 30 mg 24 hr tablet Take 3 tablets by mouth once daily. pregabalin (LYRICA) 25 mg capsule Take 1 tablet PO daily with an additional 1 tablet PO after dialysis MWF metoclopramide HCl (REGLAN) 5 mg tablet Take 1 tablet by mouth three times daily. pantoprazole DR (PROTONIX) 40 mg tablet Take 1 tablet by mouth once daily. senna (SENNA) 8.6 mg tab Take 8.6 mg by mouth once daily. ondansetron (ZOFRAN) 4 mg tablet Take 4 mg by mouth every 8 hours as needed. ipratropium-albuterol (DUONEB) 0.5 mg-3 mg(2.5 mg base)/3 mL nebu Inhale 3 mL as instructed every 4 hours while awake. And prn for wheezing/shortness of breath. budesonide (PULMICORT) 0.5 mg/2 mL nebulizer solution Use 2 mL via nebulizer once daily. INHALE 2 ML BY NEBULIZER OVER 5-15 MINUTES EVERY 12 HOURS. nystatin (NYSTOP) powder Apply 1 application to affected area three times daily. guaiFENesin-dextromethorphan (ROBITUSSIN DM) 100-10 mg/5 mL syrup Take 5-10 mL by mouth every 6 hours as needed for Cough. nitroglycerin sublingual (NITROQUICK) 0.4 mg SL tablet Dissolve 1 tablet under the tongue every 5 minutes as needed. OXYGEN, HOME THERAPY, Inhale 2.5 L/min as instructed continuous. 3 L/min when leaves home. No current facility-administered medications for this visit. ALLERGIES Allergen Reactions - Aspirin Other: See Comments Patient states that she bled out every orifice, sts not allowed to take it at all. Patient states she was bleeding out of nose and mouth after one dose. - Bactrim [Sulfametho* Other: See Comments My throat swells up. - Latex Rash, Itching Itching and welts. No wheezing or shortness of breath. - Penicillins Rash, Itching Tolerated ceftriaxone during 11/2017 admission and cefepime during 12/2017 admission - Tetracycline Rash, GI Upset Emesis and diarrhea. - Atorvastatin Rash - Codeine Other: See Comments Numbness - Dilaudid [Hydromorp* Mental Status Change - Meperidine - Pentazocine - Pioglitazone Unknown - Propoxyphene PAST SURGICAL HISTORY Procedure Laterality Date - CABG (1) VEIN GRAFT AND ARTERIAL GRAFT - CHOLECYSTECTOMY HX - DIALYSIS ACCESS SYSTEM - HEART SURGERY HX 07/18/2004 Septal myectomy and CABG x2 (DEBORAH-LAD, SVG-PDA). - HYSTERECTOMY HX - IANDD PERIANAL ABSCESS - PACEMAKER with defib - PAST SURGICAL HISTORY OF left breast nodule removed - PAST SURGICAL HISTORY OF skin lesions removed - STENT PLACEMENT coronary REVIEW OF SYSTEMS: CONSTITUTIONAL: No fevers, chills, nightsweats, unintended weight loss HEENT: Denies frequent or severe heaches, nasal congestion/sinus symptoms, problematic allergy problems. EYES: No diplopia or blurry vision. CARDIOVASCULAR: No chest pain, dyspnea, palpitations, orthopnea, PND, ankle edema. PULM: No dyspnea, unexplained cough. GI: No dysphagia/odynophagia, problematic reflux, constipation, diarrhea, changes in stool habits, hematochezia, melena. : No new urinary complaints, including dysuria, gross hematuria or pyuria. NEURO: No new balance problems, peripheral weakness/paresthesias or numbness of concern. MUSC-SKEL: Pain in left foot PSY: No concerns regarding depression, anxiety or panic. INTEGUMENTARY: No new skin changes (rash, new or changing mole, new growth) Physical Exam: Constitutional: Pt is a well developed 77 year old female who is alert, oriented, cooperative and in no apparent distress. OBJECTIVE: Vascular: DP and PT pulses are nonpalpable b/l. CFT is delayed. Hair growth is decreased. Skin temperature is cool Dermatological: Nails 1-5 b/l are normal. Webspaces clean and dry 1-4 b/l. Skin appears dry b/l. Hyperkeratosis to distal left 1st and 2nd toe. No ulcerations present. Musculoskeletal/Orthopaedic: Patient has pain to palpation of left midfoot Plantarflexion, dorsiflexion, inversion and eversion is 5/5 ASSESSMENT: (S90.425A) Blister of toe of left foot, initial encounter (primary encounter diagnosis) (E11.49) Other diabetic neurological complication associated with type 2 diabetes mellitus (HCC) (I73.9) PAD (peripheral artery disease) ([facility]) PLAN: 1. History and physical examination completed today. 2. Blisters of left hallux and left 2nd toe now appear healed. There is scaling that is present and this was removed with sanding disk. Recommend continued use of lotion. 3. She has returned to wearing crocs. Myself and her pcp have instructed her not to wear these. She recently purchased new shoes that were evaluated and found to fit her well. Instructed her to wear these instead 4. She has appointment with [employer] for diabetic shoes. She will wear her diabetic shoes once she wears them 5. Reviewed xrays of left foot. No signs of infection. Discussed pain of left foot. Likely that of arthritis. Continue with appropriate shoes . Anticipate relief with diabetic shoe and inserts 6. F/u in 2 weeks Jose C Rodriguez DPM Referring Provider: JOSE C RODRIGUEZ [[id number]] Allergies As of Date: 08/09/2018 Noted Allergy Reaction ASPIRIN 01/20/2018 14 - Other: See Comments Comments: Patient states that she bled out every orifice, sts not allowed to take it at all. Patient states she was bleeding out of nose and mouth after one dose. BACTRIM (SULFAMETHOXAZOLE-TRIMETH*05/17/2017 14 - Other: See Comments Comments: My throat swells up. LATEX 05/17/2017 2 - Rash 9 - Itching Comments: Itching and welts. No wheezing or shortness of breath. PENICILLINS 07/14/2004 2 - Rash 9 - Itching Comments: Tolerated ceftriaxone during 11/2017 admission and cefepime during 12/2017 admission TETRACYCLINE 09/29/2010 2 - Rash 8 - GI Upset Comments: Emesis and diarrhea. ATORVASTATIN 05/17/2017 2 - Rash CODEINE 05/17/2017 14 - Other: See Comments Comments: Numbness DILAUDID (HYDROMORPHONE (BULK)) 05/17/2017 1 - Mental Status Change MEPERIDINE 07/14/2004 PENTAZOCINE 07/14/2004 PIOGLITAZONE 05/17/2017 16 - Unknown PROPOXYPHENE 07/14/2004 Date Reviewed: 08/09/2018 Reviewed by: Katie Gonzalez RN - Fully Assessed Reason for Visit: Follow Up [171] Primary Visit Diagnosis:Blister of toe of left foot, initial encounter [S90.425A] Other Visit Diagnoses:Other diabetic neurological complication associated with type 2 diabetes mellitus (HCC) [E11.49] PAD (peripheral artery disease) ([facility]) [I73.9] Prescriptions as of 08/09/2018 Sig: APIXABAN 5 MG TABLET Take 1 tablet by mouth twice * INSULIN ASPART U-100 100 UNI* Using Sliding Scale: 150-209* INSULIN GLARGINE (U-100) 100 * Inject 50 Units subcutaneousl* INSULIN GLARGINE (U-100) 100 * Inject 32 Units subcutaneousl* CARVEDILOL 3.125 MG TABLET Take 1 tablet by mouth twice * AMIODARONE 200 MG TABLET Take 1 tablet by mouth once d* BACITRACIN ZINC 500 UNIT/GRAM* Apply 1 application to affect* POLYETHYLENE GLYCOL 3350 17 G* Use 1-2 times daily as needed* SIMVASTATIN 40 MG TABLET Take 1 tablet by mouth every * ISOSORBIDE MONONITRATE ER 30 * Take 3 tablets by mouth once * PREGABALIN 25 MG CAPSULE Take 1 tablet PO daily with a* METOCLOPRAMIDE 5 MG TABLET Take 1 tablet by mouth three * PANTOPRAZOLE 40 MG TABLET,DEL* Take 1 tablet by mouth once d* SENNOSIDES 8.6 MG TABLET Take 8.6 mg by mouth once carlos* ONDANSETRON HCL 4 MG TABLET Take 4 mg by mouth every 8 ho* IPRATROPIUM-ALBUTEROL 0.5 MG-* Inhale 3 mL as instructed leanne* BUDESONIDE 0.5 MG/2 ML SUSPEN* Use 2 mL via nebulizer once d* NYSTATIN 100,000 UNIT/GRAM TO* Apply 1 application to affect* DEXTROMETHORPHAN-GUAIFENESIN * Take 5-10 mL by mouth every 6* NITROGLYCERIN 0.4 MG SUBLINGU* Dissolve 1 tablet under the t* OXYGEN (HOME THERAPY) Inhale 2.5 L/min as instructe* Problem List As Of Date 08/09/2018 Noted Resolved HOCM (hypertrophic obstructive cardiomyopathy) * 01/23/2018 Priority: I More... SVT (supraventricular tachycardia) ([facility]) [I47.1] 01/21/2018 More... Carotid artery disease ([facility]) [I77.9] 01/22/2018 CAD (coronary artery disease) [I25.10] Priority: E More... Hypertension [I10] Priority: L More... Hyperlipidemia [E78.5] Pneumonia [J18.9] 10/27/2017 More... COPD (chronic obstructive pulmonary disease) (H* Priority: F More... Sleep apnea [G47.30] Priority: I More... HH (hiatus hernia) [K44.9] 01/21/2018 GERD (gastroesophageal reflux disease) [K21.9] Priority: K More... More... Arthritis [M19.90] Numbness and tingling of right leg [R20.0, R20.* 01/21/2018 Depression [F32.9] Atrial fibrillation (HCC) [I48.91] INVALID FOR* Priority: C More... Uncontrolled type 2 diabetes mellitus with stag*INVALID FOR* Priority: H More... More... More... Heart failure, systolic, acute (HCC) [I50.21] INVALID FOR*01/21/2018 More... Obesity [E66.09] INVALID FOR* Priority: M More... Gout [M10.9] Pacemaker [Z95.0] Priority: D More... Chronic combined systolic and diastolic CHF (co*INVALID FOR* Priority: B More... Elevated troponin [R74.8] INVALID FOR*01/22/2018 Priority: G More... Pulmonary hypertension (HCC) [I27.20] INVALID FOR* Oral thrush [B37.0] INVALID FOR*01/21/2018 Hyponatremia [E87.1] INVALID FOR* Priority: J More... Hyperkalemia [E87.5] INVALID FOR*01/22/2018 Priority: J Chest pain in adult [R07.9] INVALID FOR*02/12/2018 Priority: A More... Acute renal failure superimposed on stage 3 chr*INVALID FOR* Priority: A More... Obesity, Class II, BMI 35-39.9 [E66.9] INVALID FOR* ESRD on dialysis (HCC) [N18.6, Z99.2] INVALID FOR* More... Chronic hypoxemic respiratory failure (HCC) [J9*INVALID FOR* Disposition: Return in about 2 weeks (around 08/23/2018) for Marlon rodriguez. Follow-up and Disposition History Recorded Encounter Status:Closed by JOSE C RODRIGUEZ DPM on 08/10/18 FECAL OCCULT BLD Collected: 08/05/2018 Status: F Source: [place] TST 7:30 AM [facility] [place] REPOSITORY TYPE CODE TESTS RESULT OUT OF RANGE REFERENCE UNITS LAB IFO Negative Abnormal Alert Immuno Positive FOB Result Comment: This test was developed and its performance characteristics determined by [facility] [place] [facility] It has not been cleared or approved by the FDA. [facility] is regulated under CLIA as qualified to perform high-complexity testing. This test is used for clinical purposes. It should not be regarded as investigational or for research. Performed By: #### IFOBT #### [facility] [address] [place], [place] [address] PROGRESS Observed: 08/04/2018 Status: COMPLETED Source: [place] 4:12 PM [facility] REPOSITORY HNO ID: [id number] Author: Adriel Calles) Yary Service: (none) Author Type: Nurse Practitioner Type: Progress Notes Filed: 08/04/2018 4:33 PM Note Text: 08/04/2018 Patient presents with: Throat Problem SUBJECTIVE: This is a 77 year old that is here today for difficulty swallowing solids, dark stools, and fatigue. She states that she has been having the dark stools for some time, it did seem to get better, but it is back. No blood seen in stools. No abdominal pain. Trouble swallowing has been happen for quite a while per pt, but worse recently. She states that she has swallowing tests done when she was at [facility] quite a while back early this year. She states that she feels that she has to chew more now to be able to get the food to go down and it often feels like it is going to get stuck. She denies choking. She states that when she is chewing, she will often find herself drooling because it is taking too long. She denies having any issues with drooling or trouble controlling secretions when she is not eating. She denies choking or having any trouble swallowing liquids. She states that all she has been able to eat is an egg sandwich daily. Not really eating much more than a few little bites of other things throughout the day. Denies NVD. BS have been 135 or less at all times a day when she is checking. She denies any hypoglycemic symptoms. She states that she continues to have cough and orthopnea. Sleeping in the recliner helps. She does not feel that it is any worse than it has been. No increase in SOB. No CP or tightness. Wearing O2 as ordered. Nurse was concerned about leg swelling as well but pt and daughter both feel that she is at baseline. She used to sleep a lot only on dialysis days, but daughter is concerned that she is taking 3 hour naps daily now. Pt states that she is always feeling tired. PAST MEDICAL HISTORY Diagnosis Date - Arthritis - Atrial fibrillation ([facility]) - CAD (coronary artery disease) stents x9, defibrillator, CABG. Seeing Dr. Cardona - Cardiac defibrillator in place - Cardiomegaly - Carotid artery disease ([facility]) left - Chronic hypoxemic respiratory failure ([facility]) 07/01/2018 - Chronic kidney disease (CKD) stage G3b/A2, moderately decreased glomerular filtration rate (GFR) between 30-44 mL/min/1.73 square meter and albuminuria creatinine ratio between 30-299 mg/g ([facility]) Dr. Martin - COPD (chronic obstructive pulmonary disease) ([facility]) Dr. Cruz - Depression - Diabetes ([facility]) - Diabetic neuropathy ([facility]) - Edema - ESRD (end stage renal disease) on dialysis ([facility]) [facility], Dr. Martin - GERD (gastroesophageal reflux disease) - Gout with hyperuricemia - HH (hiatus hernia) - HOCM (hypertrophic obstructive cardiomyopathy) ([facility]) S/P Septal Myectomy in 2003. Now with LVEF 50% and mod/severe pulm HTN. - HTN (hypertension) - Hyperlipidemia - Morbid obesity with BMI of 40.0-44.9, adult ([facility]) - Presence of combination internal cardiac defibrillator (ICD) and pacemaker - Sleep apnea 2011 not on CPAP, unable to tolerate mask 02/2017 - SVT (supraventricular tachycardia) ([facility]) NSVT and questionable VT in 2003 post op ALLERGIES Aspirin; Bactrim [Sulfamethoxazole-Trimethoprim]; Latex; Penicillins; Tetracycline; Atorvastatin; Codeine; Dilaudid [Hydromorphone (Bulk)]; Meperidine; Pentazocine; Pioglitazone; Propoxyphene MEDICATIONS Current Outpatient Prescriptions: apixaban (ELIQUIS) 5 mg tab(s) Take 1 tablet by mouth twice daily. insulin aspart U-100 (NOVOLOG FLEXPEN U-100 INSULIN) 100 unit/mL inpn Using Sliding Scale: 150-209 1 unit, 210-269 2 units, 270- 329 3 units, 330-389 4 units, 390-449 5 units insulin glargine (LANTUS SOLOSTAR U-100 INSULIN) 100 unit/mL (3 mL) inpn Inject 50 Units subcutaneously every morning. insulin glargine (LANTUS SOLOSTAR U-100 INSULIN) 100 unit/mL (3 mL) inpn Inject 32 Units subcutaneously daily at bedtime. carvedilol (COREG) 3.125 mg tablet Take 1 tablet by mouth twice daily with meals. amiodarone (PACERONE) 200 mg tablet Take 1 tablet by mouth once daily. bacitracin zinc (ANTIBIOTIC, BACITRACIN ZINC,) 500 unit/gram ointment Apply 1 application to affected area twice daily. polyethylene glycol 3350 (MIRALAX) 17 gram/dose powder Use 1-2 times daily as needed for constipation. simvastatin (ZOCOR) 40 mg tablet Take 1 tablet by mouth every morning. isosorbide mononitrate ER (IMDUR) 30 mg 24 hr tablet Take 3 tablets by mouth once daily. pregabalin (LYRICA) 25 mg capsule Take 1 tablet PO daily with an additional 1 tablet PO after dialysis MWF metoclopramide HCl (REGLAN) 5 mg tablet Take 1 tablet by mouth three times daily. pantoprazole DR (PROTONIX) 40 mg tablet Take 1 tablet by mouth once daily. senna (SENNA) 8.6 mg tab Take 8.6 mg by mouth once daily. ondansetron (ZOFRAN) 4 mg tablet Take 4 mg by mouth every 8 hours as needed. ipratropium-albuterol (DUONEB) 0.5 mg-3 mg(2.5 mg base)/3 mL nebu Inhale 3 mL as instructed every 4 hours while awake. And prn for wheezing/shortness of breath. budesonide (PULMICORT) 0.5 mg/2 mL nebulizer solution Use 2 mL via nebulizer once daily. INHALE 2 ML BY NEBULIZER OVER 5-15 MINUTES EVERY 12 HOURS. nystatin (NYSTOP) powder Apply 1 application to affected area three times daily. guaiFENesin-dextromethorphan (ROBITUSSIN DM) 100-10 mg/5 mL syrup Take 5-10 mL by mouth every 6 hours as needed for Cough. nitroglycerin sublingual (NITROQUICK) 0.4 mg SL tablet Dissolve 1 tablet under the tongue every 5 minutes as needed. OXYGEN, HOME THERAPY, Inhale 2.5 L/min as instructed continuous. 3 L/min when leaves home. No current facility-administered medications for this visit. Medications and allergies reviewed by this provider. SOCIAL HISTORY Social History Marital status: Spouse name: Years of education: Number of children: Social History Main Topics Smoking status: Former Smoker Packs/day: 2.50 Years: 43.00 Types: Cigarettes Start date: 1961 Quit date: 07/07/2004 Smokeless tobacco: Never Used Alcohol use: No Drug use: No Other Topics Concern Caffeine Concern Yes Comment:coffee 1 cup daily Special Diet No Comment:Regular Exercise No Comment:no unable, due to SOB x several months. Social History Narrative Patient and daughter live together. REVIEW OF SYSTEMS see HPI OBJECTIVE: BP 116/68 Pulse 86 Resp 16 Wt 91.2 kg (201 lb) SpO2 90% BMI 30.56 kg/m? . Vital signs reviewed by this provider. PHYSICAL EXAMINATION: General appearance: Well appearing, alert, in no acute distress, well-hydrated, well nourished. and appears fatigued Skin: Skin color, texture, turgor normal, no suspicious rashes or lesions Neck: Supple, no adenopathy; thyroid symmetric, normal size, no bruits Lungs: Lungs clear to auscultation. No wheezing, rhonchi, rales Heart: RRR without murmur, gallop, or rubs. No ectopy Abdomen: Abdomen soft, non-tender. Bowel sounds normal. Extremities: Edema: Trace, nonpitting, baseline coloring of dark purple with rough texture. No open areas or drainage. ASSESSMENT/PLAN: 1. Dysphagia, unspecified type - ICD9: 787.20, ICD10: R13.10 (primary diagnosis) - Prior swallow eval recommended EGD- will refer to General surgery for EGD and colonoscopy. Deferred colonoscopy in the past due to recent NE. Will ask for new evaluation for continued symptoms. - encouraged to stay hydrated within fluid restriction requirements - Encouraged to try to eat soft foods that are easier to swallow to avoid choking. Stressed the need for protein and proper nutrients. May be source of fatigue. - CONSULT TO GENERAL SURGERY - follow up as needed 2. Dark stools - ICD9: 792.1, ICD10: R19.5 - see above - CBC + DIFF - FECAL OCCULT BLOOD TEST - CONSULT TO GENERAL SURGERY 3. Fatigue, unspecified type - ICD9: 780.79, ICD10: R53.83 - will start with labs to evaluate for infection and blood loss, may also be related to decreased food intake- see above. Discussed monitoring BS and following up as needed. - CBC + DIFF - COMP METABOLIC PANEL - FECAL OCCULT BLOOD TEST Adriel Pringle APRN.BACKHAUL [employer]IVER CBC AND DIFFERENTIAL Collected: 08/04/2018 Status: F Source: [place] 2:17 PM [facility] REPOSITORY TYPE CODE TESTS RESULT OUT OF REFERENCE UNITS RANGE LAB WBC 3.70-11.00 k/uL WBC 8.10 LAB RBC 3.90-5.20 m/uL Low RBC 3.67 LAB HGB 11.5-15.5 g/dL Low Hemoglobin 11.4 LAB HCT 36.0-46.0 % Hematocrit 36.9 LAB MCV 80.0-100.0 fL MCV High 100.5 LAB MCH 26.0-34.0 pG MCH 31.1 LAB MCHC 30.5-36.0 g/dL MCHC 30.9 LAB RDWCV 11.5-15.0 % RDW-CV 14.2 LAB PLTCT 150-400 k/uL Platelet Count 160 LAB MPV 9.0-12.7 fL MPV 9.8 LAB ANEUT % Neut% 71.4 LAB AANEUT 1.45-7.50 k/uL Abs Neut 5.78 LAB ALYMP % Lymph% 15.9 LAB AALYMP 1.00-4.00 k/uL Abs Lymph 1.29 LAB AMONO % Stoddard% 9.9 LAB AAMONO <0.87 k/uL Abs Stoddard 0.80 LAB AEOS % Eosin% 2.2 LAB AAEOS <0.46 k/uL Abs Eosin 0.18 LAB ABASO % Baso% 0.6 LAB AABASO <0.11 k/uL Abs Baso 0.05 LAB AUNRBC 0 /100 WBC NRBCs 0.0 LAB ABNRBC <0.01 k/uL Absolute nRBC <0.01 LAB DTYP DTYPE Auto Diff Performed By: #### CBCDIF, CMP, HBA1C #### [facility] [address] [place], [place] [address] COMP METABOLIC PANEL Collected: 08/04/2018 Status: F Source: [place] 2:17 PM [facility] REPOSITORY TYPE CODE TESTS RESULT OUT OF REFERENCE UNITS RANGE LAB TP 6.3-8.0 g/dL Protein, Total 7.2 LAB ALB 3.9-4.9 g/dL Low Albumin 3.4 LAB CA 8.5-10.2 mg/dL Calcium, Total 9.5 LAB TBIL 0.2-1.3 mg/dL Bilirubin, Total 0.5 LAB ALKP 34-123 U/L Alkaline Phosphatase 98 LAB AST 13-35 U/L AST 14 LAB GLU 74-99 mg/dL Glucose High 157 Result Comment: The [place] [employer] (ADA) provides guidance for cutoff values for fasting glucose and random glucose. The ADA defines fasting as no caloric intake for at least 8 hours. Fas ting plasma glucose results between 100 to 125 mg/dL indicate increased risk for diabetes (prediabetes). Fasting plasma glucose results greater than or equal to 126 mg/dL meet the criteria for diagnosis of diabetes. In the absence of unequivocal hyperglycemia, results should be confirmed by repeat testing. In a patient with classic symptoms of hyperglycemia or hyperglycemic crisis, random plasma glucose results greater than or equal to 200 mg/dL meet the criteria for diagnosis of diabetes. Reference: Standards of Medical Care in Diabetes 2016, [place] [employer]. Diabetes Care. 2016.39(Suppl 1). LAB BUN 7-21 mg/dL BUN High 32 LAB CRET 0.58-0.96 mg/dL Creatinine High 4.36 LAB NA 136-144 mmol/L Sodium 138 LAB K 3.7-5.1 mmol/L Potassium 3.7 LAB CL 97-105 mmol/L Low Chloride 93 LAB CO2 22-30 mmol/L CO2 28 LAB AGAP 9-18 mmol/L Anion Gap 17 LAB ALT 7-38 U/L ALT 10 LAB GFRAA eGFR- Amer. 12 LAB GFRNAA . eGFR-All Other Races 10 Result Comment: eGFR (Estimated GFR) Units of measure: mL/min/1.73 meters squared eGFR is derived from the reexpressed MDRD Study equation using the following parameters: serum creatinine, age, gender and race. The creatinine assay has been calibrated to be traceable to IDSC. An eGFR <60 mL/min/1.73m2 for >3 months is consistent with chronic kidney disease. Refer to KDOQI guidelines for clinical interpretation. In patients with unstable renal function, e.g. those with acute kidney injury, the eGFR may not accurately reflect actual GFR. Performed By: #### CBCDIF, CMP, HBA1C #### [facility] [place] [address] [place], [place] [address] HEMOGLOBIN A1C Collected: 08/04/2018 Status: F Source: [place] 2:17 PM [facility] REPOSITORY TYPE CODE TESTS RESULT OUT OF REFERENCE UNITS RANGE LAB HGBA1C 4.3-5.6 % High Hemoglobin A1c 6.3 LAB HBA0 mg/dL Est. Average Glucose 134 Result Comment: eAG: (Estimated average glucose) is a calculated value from HgbA1c and is outreach representative of the average blood glucose level in the last 2-3 month period. Performed By: #### CBCDIF, CMP, HBA1C #### [facility] [place] [address] [place], [place] [address] CNOV Observed: 08/04/2018 Status: COMPLETED Source: [place] 1:20 PM [facility] REPOSITORY Office Visit (FAMPWS) LUZ BACA ([id number]) 1940 F Date Time Provider Department 08/04/18 1:20 PM ADRIEL PRINGLE ([facility]) FAMPWS During your visit today, we recorded the following information about you: Pulse Respiration Blood pressure Weight 86/minute 16/minute 116/68 91.2 kg Adriel Pringle APRN.CNP 08/04/2018 4:33 PM Signed 08/04/2018 Patient presents with: Throat Problem SUBJECTIVE: This is a 77 year old that is here today for difficulty swallowing solids, dark stools, and fatigue. She states that she has been having the dark stools for some time, it did seem to get better, but it is back. No blood seen in stools. No abdominal pain. Trouble swallowing has been happen for quite a while per pt, but worse recently. She states that she has swallowing tests done when she was at [facility] quite a while back early this year. She states that she feels that she has to chew more now to be able to get the food to go down and it often feels like it is going to get stuck. She denies choking. She states that when she is chewing, she will often find herself drooling because it is taking too long. She denies having any issues with drooling or trouble controlling secretions when she is not eating. She denies choking or having any trouble swallowing liquids. She states that all she has been able to eat is an egg sandwich daily. Not really eating much more than a few little bites of other things throughout the day. Denies NVD. BS have been 135 or less at all times a day when she is checking. She denies any hypoglycemic symptoms. She states that she continues to have cough and orthopnea. Sleeping in the recliner helps. She does not feel that it is any worse than it has been. No increase in SOB. No CP or tightness. Wearing O2 as ordered. Nurse was concerned about leg swelling as well but pt and daughter both feel that she is at baseline. She used to sleep a lot only on dialysis days, but daughter is concerned that she is taking 3 hour naps daily now. Pt states that she is always feeling tired. PAST MEDICAL HISTORY Diagnosis Date - Arthritis - Atrial fibrillation ([facility]) - CAD (coronary artery disease) stents x9, defibrillator, CABG. Seeing Dr. Cardona - Cardiac defibrillator in place - Cardiomegaly - Carotid artery disease ([facility]) left - Chronic hypoxemic respiratory failure ([facility]) 07/01/2018 - Chronic kidney disease (CKD) stage G3b/A2, moderately decreased glomerular filtration rate (GFR) between 30-44 mL/min/1.73 square meter and albuminuria creatinine ratio between 30-299 mg/g ([facility]) Dr. Martin - COPD (chronic obstructive pulmonary disease) ([facility]) Dr. Cruz - Depression - Diabetes ([facility]) - Diabetic neuropathy ([facility]) - Edema - ESRD (end stage renal disease) on dialysis ([facility]) Dr. Veronica SERRANO - GERD (gastroesophageal reflux disease) - Gout with hyperuricemia - HH (hiatus hernia) - HOCM (hypertrophic obstructive cardiomyopathy) ([facility]) S/P Septal Myectomy in 2003. Now with LVEF 50% and mod/severe pulm HTN. - HTN (hypertension) - Hyperlipidemia - Morbid obesity with BMI of 40.0-44.9, adult ([facility]) - Presence of combination internal cardiac defibrillator (ICD) and pacemaker - Sleep apnea 2011 not on CPAP, unable to tolerate mask 02/2017 - SVT (supraventricular tachycardia) ([facility]) NSVT and questionable VT in 2003 post op ALLERGIES Aspirin; Bactrim [Sulfamethoxazole-Trimethoprim]; Latex; Penicillins; Tetracycline; Atorvastatin; Codeine; Dilaudid [Hydromorphone (Bulk)]; Meperidine; Pentazocine; Pioglitazone; Propoxyphene MEDICATIONS Current Outpatient Prescriptions: apixaban (ELIQUIS) 5 mg tab(s) Take 1 tablet by mouth twice daily. insulin aspart U-100 (NOVOLOG FLEXPEN U-100 INSULIN) 100 unit/mL inpn Using Sliding Scale: 150-209 1 unit, 210-269 2 units, 270-329 3 units, 330-389 4 units, 390-449 5 units insulin glargine (LANTUS SOLOSTAR U-100 INSULIN) 100 unit/mL (3 mL) inpn Inject 50 Units subcutaneously every morning. insulin glargine (LANTUS SOLOSTAR U-100 INSULIN) 100 unit/mL (3 mL) inpn Inject 32 Units subcutaneously daily at bedtime. carvedilol (COREG) 3.125 mg tablet Take 1 tablet by mouth twice daily with meals. amiodarone (PACERONE) 200 mg tablet Take 1 tablet by mouth once daily. bacitracin zinc (ANTIBIOTIC, BACITRACIN ZINC,) 500 unit/gram ointment Apply 1 application to affected area twice daily. polyethylene glycol 3350 (MIRALAX) 17 gram/dose powder Use 1-2 times daily as needed for constipation. simvastatin (ZOCOR) 40 mg tablet Take 1 tablet by mouth every morning. isosorbide mononitrate ER (IMDUR) 30 mg 24 hr tablet Take 3 tablets by mouth once daily. pregabalin (LYRICA) 25 mg capsule Take 1 tablet PO daily with an additional 1 tablet PO after dialysis MWF metoclopramide HCl (REGLAN) 5 mg tablet Take 1 tablet by mouth three times daily. pantoprazole DR (PROTONIX) 40 mg tablet Take 1 tablet by mouth once daily. senna (SENNA) 8.6 mg tab Take 8.6 mg by mouth once daily. ondansetron (ZOFRAN) 4 mg tablet Take 4 mg by mouth every 8 hours as needed. ipratropium-albuterol (DUONEB) 0.5 mg-3 mg(2.5 mg base)/3 mL nebu Inhale 3 mL as instructed every 4 hours while awake. And prn for wheezing/shortness of breath. budesonide (PULMICORT) 0.5 mg/2 mL nebulizer solution Use 2 mL via nebulizer once daily. INHALE 2 ML BY NEBULIZER OVER 5-15 MINUTES EVERY 12 HOURS. nystatin (NYSTOP) powder Apply 1 application to affected area three times daily. guaiFENesin-dextromethorphan (ROBITUSSIN DM) 100-10 mg/5 mL syrup Take 5-10 mL by mouth every 6 hours as needed for Cough. nitroglycerin sublingual (NITROQUICK) 0.4 mg SL tablet Dissolve 1 tablet under the tongue every 5 minutes as needed. OXYGEN, HOME THERAPY, Inhale 2.5 L/min as instructed continuous. 3 L/min when leaves home. No current facility-administered medications for this visit. Medications and allergies reviewed by this provider. SOCIAL HISTORY Social History Marital status: Spouse name: Years of education: Number of children: Social History Main Topics Smoking status: Former Smoker Packs/day: 2.50 Years: 43.00 Types: Cigarettes Start date: 1961 Quit date: 07/07/2004 Smokeless tobacco: Never Used Alcohol use: No Drug use: No Other Topics Concern Caffeine Concern Yes Comment:coffee 1 cup daily Special Diet No Comment:Regular Exercise No Comment:no unable, due to SOB x several months. Social History Narrative Patient and daughter live together. REVIEW OF SYSTEMS see HPI OBJECTIVE: BP 116/68 Pulse 86 Resp 16 Wt 91.2 kg (201 lb) SpO2 90% BMI 30.56 kg/m? . Vital signs reviewed by this provider. PHYSICAL EXAMINATION: General appearance: Well appearing, alert, in no acute distress, well-hydrated, well nourished. and appears fatigued Skin: Skin color, texture, turgor normal, no suspicious rashes or lesions Neck: Supple, no adenopathy; thyroid symmetric, normal size, no bruits Lungs: Lungs clear to auscultation. No wheezing, rhonchi, rales Heart: RRR without murmur, gallop, or rubs. No ectopy Abdomen: Abdomen soft, non-tender. Bowel sounds normal. Extremities: Edema: Trace, nonpitting, baseline coloring of dark purple with rough texture. No open areas or drainage. ASSESSMENT/PLAN: 1. Dysphagia, unspecified type - ICD9: 787.20, ICD10: R13.10 (primary diagnosis) - Prior swallow eval recommended EGD- will refer to General surgery for EGD and colonoscopy. Deferred colonoscopy in the past due to recent NE. Will ask for new evaluation for continued symptoms. - encouraged to stay hydrated within fluid restriction requirements - Encouraged to try to eat soft foods that are easier to swallow to avoid choking. Stressed the need for protein and proper nutrients. May be source of fatigue. - CONSULT TO GENERAL SURGERY - follow up as needed 2. Dark stools - ICD9: 792.1, ICD10: R19.5 - see above - CBC + DIFF - FECAL OCCULT BLOOD TEST - CONSULT TO GENERAL SURGERY 3. Fatigue, unspecified type - ICD9: 780.79, ICD10: R53.83 - will start with labs to evaluate for infection and blood loss, may also be related to decreased food intake- see above. Discussed monitoring BS and following up as needed. - CBC + DIFF - COMP METABOLIC PANEL - FECAL OCCULT BLOOD TEST Adriel Pringle APRN.[employer]UL [employer]IVER Referring Provider: JAMESON KAMARA) [[id number]] Allergies As of Date: 08/04/2018 Noted Allergy Reaction ASPIRIN 01/20/2018 14 - Other: See Comments Comments: Patient states that she bled out every orifice, sts not allowed to take it at all. Patient states she was bleeding out of nose and mouth after one dose. BACTRIM (SULFAMETHOXAZOLE-TRIMETH*05/17/2017 14 - Other: See Comments Comments: My throat swells up. LATEX 05/17/2017 2 - Rash 9 - Itching Comments: Itching and welts. No wheezing or shortness of breath. PENICILLINS 07/14/2004 2 - Rash 9 - Itching Comments: Tolerated ceftriaxone during 11/2017 admission and cefepime during 12/2017 admission TETRACYCLINE 09/29/2010 2 - Rash 8 - GI Upset Comments: Emesis and diarrhea. ATORVASTATIN 05/17/2017 2 - Rash CODEINE 05/17/2017 14 - Other: See Comments Comments: Numbness DILAUDID (HYDROMORPHONE (BULK)) 05/17/2017 1 - Mental Status Change MEPERIDINE 07/14/2004 PENTAZOCINE 07/14/2004 PIOGLITAZONE 05/17/2017 16 - Unknown PROPOXYPHENE 07/14/2004 Date Reviewed: 08/04/2018 Reviewed by: Leslie Mejia) IDANIA Sandoval - Fully Assessed Reason for Visit: Throat Problem [109] Primary Visit Diagnosis:Dysphagia, unspecified type [R13.10] Other Visit Diagnoses:Dark stools [R19.5] Fatigue, unspecified type [R53.83] Order(s):CBC + DIFF [SQCBCDIF] Order #: [id number] FUTURE COMP METABOLIC PANEL [SQCMP] Order #: [id number] FUTURE FECAL OCCULT BLOOD TEST [SQIFOBT] Order #: [id number] FUTURE CONSULT TO GENERAL SURGERY [9011] Order #: [id number]: 1 Prescriptions as of 08/04/2018 Sig: APIXABAN 5 MG TABLET Take 1 tablet by mouth twice * INSULIN ASPART U-100 100 UNI* Using Sliding Scale: 150-209* INSULIN GLARGINE (U-100) 100 * Inject 50 Units subcutaneousl* INSULIN GLARGINE (U-100) 100 * Inject 32 Units subcutaneousl* CARVEDILOL 3.125 MG TABLET Take 1 tablet by mouth twice * AMIODARONE 200 MG TABLET Take 1 tablet by mouth once d* BACITRACIN ZINC 500 UNIT/GRAM* Apply 1 application to affect* POLYETHYLENE GLYCOL 3350 17 G* Use 1-2 times daily as needed* SIMVASTATIN 40 MG TABLET Take 1 tablet by mouth every * ISOSORBIDE MONONITRATE ER 30 * Take 3 tablets by mouth once * PREGABALIN 25 MG CAPSULE Take 1 tablet PO daily with a* METOCLOPRAMIDE 5 MG TABLET Take 1 tablet by mouth three * PANTOPRAZOLE 40 MG TABLET,DEL* Take 1 tablet by mouth once d* SENNOSIDES 8.6 MG TABLET Take 8.6 mg by mouth once carlos* ONDANSETRON HCL 4 MG TABLET Take 4 mg by mouth every 8 ho* IPRATROPIUM-ALBUTEROL 0.5 MG-* Inhale 3 mL as instructed leanne* BUDESONIDE 0.5 MG/2 ML SUSPEN* Use 2 mL via nebulizer once d* NYSTATIN 100,000 UNIT/GRAM TO* Apply 1 application to affect* DEXTROMETHORPHAN-GUAIFENESIN * Take 5-10 mL by mouth every 6* NITROGLYCERIN 0.4 MG SUBLINGU* Dissolve 1 tablet under the t* OXYGEN (HOME THERAPY) Inhale 2.5 L/min as instructe* Problem List As Of Date 08/04/2018 Noted Resolved HOCM (hypertrophic obstructive cardiomyopathy) * 01/23/2018 Priority: I More... SVT (supraventricular tachycardia) (HCC) [I47.1] 01/21/2018 More... Carotid artery disease (HCC) [I77.9] 01/22/2018 CAD (coronary artery disease) [I25.10] Priority: E More... Hypertension [I10] Priority: L More... Hyperlipidemia [E78.5] Pneumonia [J18.9] 10/27/2017 More... COPD (chronic obstructive pulmonary disease) (H* Priority: F More... Sleep apnea [G47.30] Priority: I More... HH (hiatus hernia) [K44.9] 01/21/2018 GERD (gastroesophageal reflux disease) [K21.9] Priority: K More... More... Arthritis [M19.90] Numbness and tingling of right leg [R20.0, R20.* 01/21/2018 Depression [F32.9] Atrial fibrillation (HCC) [I48.91] INVALID FOR* Priority: C More... Uncontrolled type 2 diabetes mellitus with stag*INVALID FOR* Priority: H More... More... More... Heart failure, systolic, acute (HCC) [I50.21] INVALID FOR*01/21/2018 More... Obesity [E66.09] INVALID FOR* Priority: M More... Gout [M10.9] Pacemaker [Z95.0] Priority: D More... Chronic combined systolic and diastolic CHF (co*INVALID FOR* Priority: B More... Elevated troponin [R74.8] INVALID FOR*01/22/2018 Priority: G More... Pulmonary hypertension (HCC) [I27.20] INVALID FOR* Oral thrush [B37.0] INVALID FOR*01/21/2018 Hyponatremia [E87.1] INVALID FOR* Priority: J More... Hyperkalemia [E87.5] INVALID FOR*01/22/2018 Priority: J Chest pain in adult [R07.9] INVALID FOR*02/12/2018 Priority: A More... Acute renal failure superimposed on stage 3 chr*INVALID FOR* Priority: A More... Obesity, Class II, BMI 35-39.9 [E66.9] INVALID FOR* ESRD on dialysis (HCC) [N18.6, Z99.2] INVALID FOR* More... Chronic hypoxemic respiratory failure (HCC) [J9*INVALID FOR* Encounter Status:Closed by ADRIEL PRINGLE on 08/04/18 PT ED Observed: 08/02/2018 Status: COMPLETED Source: [place] 2:36 PM [facility] REPOSITORY HNO ID: [id number] Author: Kennedi Briseno) ALLYSON Montiel Service: (none) Author Type: Registered Nurse Type: Patient Education Filed: 08/02/2018 2:40 PM Note Text: INSTRUCTION PROVIDED TO: Patient and family member METHOD OF INSTRUCTION: Verbal instruction PATIENT / FAMILY RESPONSE: Verbalizes understanding of: POST-PROCEDURE INSTRUCTIONS-Correct actions to take to reduce post procedure complications FOLLOW-UP PLAN: Patient instructed to call with any further issues SUPPLEMENTAL MATERIAL: None REFERRAL (RECOMMENDATION): None Electronically Signed By: Kennedi Montiel RN In Department: [facility] HEEL SE[facility]TER MACHINE NURSING PROG Observed: 08/02/2018 Status: COMPLETED Source: [place] 2:30 PM [facility] OTHER [place] REPOSITORY HNO ID: [id number] Author: Kennedi Briseno) ALLYSON Montiel Service: (none) Author Type: Registered Nurse Type: Nursing Progress Note Filed: 08/02/2018 2:34 PM Note Text: @ 1318 Pt recieved to ASCU, via cart, from PACU. Pt alert AND oriented - pleasant AND cooperative - denies any discomfort. Side rails up AND call bear in reach. @ 1340 Taking orals - daughter @ bedside. @ 1400 VS stable - physical assess same. @ 1410 Discharge instructions reviewed with pt AND pt daughter. @ 1416 Discharged to home with daughter. XR CHEST 1V FRONTAL Observed: 08/02/2018 Status: F Source: [facility] 1:03 PM [facility] OTHER CAMPUS REPOSITORY * * *Final Report* * * DATE OF EXAM: Aug 02 2018 1:03PM MDX [id number] - XR CHEST 1V FRONTAL PORT / PROCEDURE REASON: Evaluate tube, line or lead position * * * * Physician Interpretation * * * * EXAMINATION: CHEST RADIOGRAPH (PORTABLE SINGLE VIEW AP) Exam Date/Time: 08/02/2018 1:03 PM Clinical History: Evaluate tube, line or lead position MQ: [id number] Comparison: Comparison is made to prior study dated 18 Feb 2018 and back to 27 July 2017. RESULT: See impression. IMPRESSION: Left lung base poorly visualized but there is persistent left basilar stranding suggestive of atelectasis. Lines, tubes, and devices: Monitor leads overlie the chest. There is a cardiac pacemaker with the tips of its intact leads overlying cardiac silhouette. Dual lumen IJ catheter terminates near the atriocaval junction is unchanged. No interval complication. Negative pneumothorax Lungs and pleura: Mild chronic interstitial lung changes with calcified residual of prior granulomatous disease again identified. Left lung base is poorly visualized and there is persistent left basilar stranding likely atelectasis. No significant layering pleural fluid or vascular redistribution to suggest pulmonary edema Cardiomediastinal silhouette: Unchanged cardiomediastinal silhouette with enlarged cardiac silhouette and median sternotomy changes. Other: The bony structures appear intact. Service Delivery Supervisor: PSCB Transcribe Date/Time: Aug 02 2018 1:10P Dictated by : DONNIE HARRISON MD This examination was interpreted and the report reviewed and electronically signed by: DONNIE HARRISON MD on Aug 02 2018 1:14PM EST [id number] OP NOT Observed: 08/02/2018 Status: COMPLETED Source: [place] 12:18 PM [facility] OTHER CAMPUS REPOSITORY HNO ID: [id number] Author: Michael Hogan Service: Vascular Surgery Author Type: Physician Type: Brief Op Note Filed: 08/02/2018 12:18 PM Note Text: BRIEF OP NOTE LOG ID: [id number] Surgery/Procedure Date: 08/02/2018 Incision/Procedure Start Time: 11:59 AM Incision Close/Procedure End Time: 12:15 PM Surgeon(s)/Proceduralist(s) and Transport Driver(s): Surgeon(s) and Role: * Michael Hogan - Primary Procedure(s): Replacement of right 19cm Bard [employer] tunneled dialysis catheter, venogram Anesthesia: Procedural Sedation Findings: No fibrin sheath, widely patent SVC Estimated Blood Loss: minimal Specimens: None Complications: None Pre-Op/Pre-Procedure Diagnosis: Malfunctioning dialysis catheter Post-Op/Post-Procedure Diagnosis: same SIGNATURE: Michael Hogan DO PATIENT NAME: Luz Baca DATE: August 02, 2018 TIME: 12:18 PM PAGER/CONTACT #: HISTORY PHYSICAL Observed: 08/02/2018 Status: COMPLETED Source: [place] 11:26 AM [facility] OTHER CAMPUS REPOSITORY O ID: [id number] Author: Michael Hogan Service: Vascular Surgery Author Type: Physician Type: HANDP Filed: 08/02/2018 11:32 AM Note Text: HISTORY AND PHYSICAL EXAMINATION SERVICE DATE: 08/02/2018 SERVICE TIME: 11:26 AM PRIMARY CARE PHYSICIAN: Jameson Kamara MD Subjective CHIEF COMPLAINT: Malfunction dialysis catheter HPI: This is a 77 year old female who presents with malfunctioning right internal jugular dialysis catheter. Having to reverse flow from catheter FUNCTIONAL STATUS: Independent PAST MEDICAL HISTORY Diagnosis Date - Arthritis - Atrial fibrillation ([facility]) - CAD (coronary artery disease) stents x9, defibrillator, CABG. Seeing Dr. Cardona - Cardiac defibrillator in place - Cardiomegaly - Carotid artery disease (HCC) left - Chronic hypoxemic respiratory failure ([facility]) 07/01/2018 - Chronic kidney disease (CKD) stage G3b/A2, moderately decreased glomerular filtration rate (GFR) between 30-44 mL/min/1.73 square meter and albuminuria creatinine ratio between 30-299 mg/g ([facility]) Dr. Martin - COPD (chronic obstructive pulmonary disease) ([facility]) Dr. Cruz - Depression - Diabetes ([facility]) - Diabetic neuropathy ([facility]) - Edema - ESRD (end stage renal disease) on dialysis ([facility]) [facility], Dr. Martin - GERD (gastroesophageal reflux disease) - Gout with hyperuricemia - HH (hiatus hernia) - HOCM (hypertrophic obstructive cardiomyopathy) ([facility]) S/P Septal Myectomy in 2003. Now with LVEF 50% and mod/severe pulm HTN. - HTN (hypertension) - Hyperlipidemia - Morbid obesity with BMI of 40.0-44.9, adult ([facility]) - Presence of combination internal cardiac defibrillator (ICD) and pacemaker - Sleep apnea 2011 not on CPAP, unable to tolerate mask 02/2017 - SVT (supraventricular tachycardia) ([facility]) NSVT and questionable VT in 2003 post op PAST SURGICAL HISTORY Procedure Laterality Date - CABG (1) VEIN GRAFT AND ARTERIAL GRAFT - CHOLECYSTECTOMY HX - DIALYSIS ACCESS SYSTEM - HEART SURGERY HX 07/18/2004 Septal myectomy and CABG x2 (DEBORAH-LAD, SVG-PDA). - HYSTERECTOMY HX - IANDD PERIANAL ABSCESS - PACEMAKER with defib - PAST SURGICAL HISTORY OF left breast nodule removed - PAST SURGICAL HISTORY OF skin lesions removed - STENT PLACEMENT coronary FAMILY HISTORY Problem Relation Age of Onset - Hypertension Mother living at age 93, HTN - Heart Failure Mother NE - Cancer Father age 71, lung cancer - Heart Attack Sister - COPD Brother - Heart Paternal Grandmother - Heart Paternal Grandfather - Heart Sister - Diabetes Sister - Heart Sister - Breast Cancer Sister - Diabetes Sister - Hypertension Brother - Diabetes Brother Social History Substance Use Topics - Smoking status: Former Smoker Packs/day: 2.50 Years: 43.00 Types: Cigarettes Start date: 1961 Quit date: 07/07/2004 - Smokeless tobacco: Never Used - Alcohol use No Prescriptions Prior to Admission: insulin aspart U-100 (NOVOLOG FLEXPEN U-100 INSULIN) 100 unit/mL inpn Using Sliding Scale: 150-209 1 unit, 210-269 2 units, 270- 329 3 units, 330-389 4 units, 390-449 5 units Disp: 5 Pen Rfl: 1 08/01/2018 at 1800 insulin glargine (LANTUS SOLOSTAR U-100 INSULIN) 100 unit/mL (3 mL) inpn Inject 50 Units subcutaneously every morning. Disp: 10 Pen Rfl: 1 08/01/2018 at 0800 insulin glargine (LANTUS SOLOSTAR U-100 INSULIN) 100 unit/mL (3 mL) inpn Inject 32 Units subcutaneously daily at bedtime. Disp: Rfl: 08/01/2018 at 0800 carvedilol (COREG) 3.125 mg tablet Take 1 tablet by mouth twice daily with meals. Disp: 60 tablet Rfl: 0 08/01/2018 at 1800 amiodarone (PACERONE) 200 mg tablet Take 1 tablet by mouth once daily. Disp: 30 tablet Rfl: 0 08/01/2018 at 0900 simvastatin (ZOCOR) 40 mg tablet Take 1 tablet by mouth every morning. Disp: 90 tablet Rfl: 1 08/01/2018 at 0900 isosorbide mononitrate ER (IMDUR) 30 mg 24 hr tablet Take 3 tablets by mouth once daily. Disp: 270 tablet Rfl: 1 08/01/2018 at 0900 pregabalin (LYRICA) 25 mg capsule Take 1 tablet PO daily with an additional 1 tablet PO after dialysis MWF Disp: 45 capsule Rfl: 2 08/01/2018 at 0900 ELIQUIS 5 mg tab(s) TAKE ONE TABLET BY MOUTH TWICE DAILY Disp: 60 tablet Rfl: 5 07/29/2018 at Unknown time pantoprazole DR (PROTONIX) 40 mg tablet Take 1 tablet by mouth once daily. Disp: Rfl: 08/01/2018 at 0900 senna (SENNA) 8.6 mg tab Take 8.6 mg by mouth once daily. Disp: Rfl: 08/01/2018 at 0900 budesonide (PULMICORT) 0.5 mg/2 mL nebulizer solution Use 2 mL via nebulizer once daily. INHALE 2 ML BY NEBULIZER OVER 5-15 MINUTES EVERY 12 HOURS. Disp: 60 Vial Rfl: 5 08/01/2018 at 0900 bacitracin zinc (ANTIBIOTIC, BACITRACIN ZINC,) 500 unit/gram ointment Apply 1 application to affected area twice daily. Disp: 1 Tube Rfl: 1 Unknown at Unknown time polyethylene glycol 3350 (MIRALAX) 17 gram/dose powder Use 1-2 times daily as needed for constipation. Disp: 1 Bottle Rfl: Taking metoclopramide HCl (REGLAN) 5 mg tablet Take 1 tablet by mouth three times daily. Disp: 90 tablet Rfl: 2 Unknown at Unknown time ondansetron (ZOFRAN) 4 mg tablet Take 4 mg by mouth every 8 hours as needed. Disp: Rfl: Unknown at Unknown time ipratropium-albuterol (DUONEB) 0.5 mg-3 mg(2.5 mg base)/3 mL nebu Inhale 3 mL as instructed every 4 hours while awake. And prn for wheezing/shortness of breath. Disp: 180 Vial Rfl: 5 Unknown at Unknown time nystatin (NYSTOP) powder Apply 1 application to affected area three times daily. Disp: 60 g Rfl: 2 Unknown at Unknown time guaiFENesin-dextromethorphan (ROBITUSSIN DM) 100-10 mg/5 mL syrup Take 5-10 mL by mouth every 6 hours as needed for Cough. Disp: 118 mL Rfl: 0 Unknown at Unknown time nitroglycerin sublingual (NITROQUICK) 0.4 mg SL tablet Dissolve 1 tablet under the tongue every 5 minutes as needed. Disp: 1 Bottle of 25 Rfl: 0 Unknown at Unknown time OXYGEN, HOME THERAPY, Inhale 2.5 L/min as instructed continuous. 3 L/min when leaves home. Disp: Rfl: Unknown at Unknown time ALLERGIES Allergen Reactions - Aspirin Other: See Comments Patient states that she bled out every orifice, sts not allowed to take it at all. Patient states she was bleeding out of nose and mouth after one dose. - Bactrim [Sulfametho* Other: See Comments My throat swells up. - Latex Rash, Itching Itching and welts. No wheezing or shortness of breath. - Penicillins Rash, Itching Tolerated ceftriaxone during 11/2017 admission and cefepime during 12/2017 admission - Tetracycline Rash, GI Upset Emesis and diarrhea. - Atorvastatin Rash - Codeine Other: See Comments Numbness - Dilaudid [Hydromorp* Mental Status Change - Meperidine - Pentazocine - Pioglitazone Unknown - Propoxyphene COMPLETE REVIEW OF SYSTEMS: GENERAL: No weight loss, malaise or fevers RESPIRATORY: Negative for cough, hemoptysis, wheezing, COPD, dyspnea or shortness of breath CARDIOVASCULAR: Negative for chest pain, leg swelling, hypertension, CHF or palpitations GI: No nausea, vomiting, or diarrhea : No history of dysuria, frequency or incontinence HEMATOLOGY/LYMPHOLOGY: Negative for prolonged bleeding, bruising easily or swollen nodes ENDOCRINE: Negative for cold or heat intolerance, polyuria, polydipsia and goiter NEURO: No history of headaches, syncope, paralysis, seizures or tremors Objective PHYSICAL EXAM: Physical Exam Performed: GENERAL: Alert, no distress, cooperative LUNGS: Lungs clear to auscultation, Good diaphragmatic excursion CARDIAC: Normal S1 and S2; no rubs, murmurs, or gallops ABDOMEN: Soft, nontender EXTREMITIES: Extremities normal, no deformities, edema, clubbing or skin discoloration. Good capillary refill., thrill present BP 129/62 Pulse 42 Temp 97.5 Resp 18 Ht 5' 8 (1.73m) Wt 201 lb (91.2kg) SpO2 97% BMI 30.57 kg/(m2). DATA: Diagnostic tests reviewed for today's visit: Most recent labs and imaging results. Assessment/Plan Principal Problem: ESRD on dialysis (HCC) POA: Unknown Assessment AND Plan: Plan for catheter exchange Medication and Non-Pharmacologic VTE Prophylaxis/Anticoagulants VTE Prophylaxis: VTE prophylaxis appropriate SIGNATURE: Michael Hogan DO PATIENT NAME: Luz Baca DATE: August 02, 2018 TIME: 11:26 AM PAGER/CONTACT #: [id number] PT ED Observed: 08/02/2018 Status: COMPLETED Source: [place] 10:17 AM [facility] REPOSITORY HNO ID: [id number] Author: Clay (Rn) Laina RN Service: (none) Author Type: Registered Nurse Type: Patient Education Filed: 08/02/2018 10:18 AM Note Text: PRE OP LEARNING ASSESSMENT PROCEDURE/SURGERY: Replace Tunnel cath READINESS TO LEARN COGNITIVE ABILITY: Alert and oriented MOTIVATION TO LEARN: Interested FAMILY SUPPORT: High - Very involved in pt care PATIENT LEARNS BEST BY: Individual Instruction FACTORS AFFECTING LEARNING: None PHYSICAL LIMITATIONS AFFECTING LEARNING: None Electronically Signed By: Clay Marina RN In Department: [facility] HEEL SEAT FITTER MACHINE OPERATIVE NO Observed: 08/02/2018 Status: COMPLETED Source: [place] 12:00 AM [facility] OTHER [place] REPOSITORY HNO ID: [id number] Author: Michael Hogan Service: Vascular Surgery Author Type: Physician Type: Operative Report Filed: 08/23/2018 2:26 PM Note Text: [facility] - Operative Report LUZ BACA : 1940 AGE: 77. SEX: F PATIENT TYPE: A HOSP SVC: JOURDAN LOCATION: [facility] ATTENDING PHYSICIAN: Michael Hogan D.O. CSN NUMBER: [id number] DATE OF SURGERY/PROCEDURE: 08/02/2018 INCISION/PROCEDURE START TIME: 11:59. INCISION CLOSE/PROCEDURE END TIME: 12:15. PREOPERATIVE DIAGNOSIS: ESRD, malfunctioning dialysis catheter POSTOPERATIVE DIAGNOSIS: same SURGEON: Michael Hogan D.O. VMWARE ENGINEER: Shaila George. SURGERY/PROCEDURE: Replacement of right 19 cm Bard GlidePath tunneled dialysis catheter and venogram. ANESTHESIA: Procedural sedation. INDICATIONS: The patient is a 77-year-old female who is currently dialyzing via a right IJ tunneled catheter that was noted to have decreased flow. With this, it was recommended that she undergo replacement of her catheter and venogram. The risks, benefits, and alternatives were discussed with the patient and consent obtained. DESCRIPTION OF PROCEDURE: The patient was taken to the Kitchen Steward, and sign-in was performed. Following this, she was placed supine on the Kitchen Steward table. Her right chest and neck were prepped and draped in standard sterile fashion. A time-out was performed. She was then given adequate sedation. Following this, I got a wire through the inferior vena cava. We infiltrated the surrounding tissue with lidocaine. We then freed the surrounding tissue with a curved hemostat. Following this, we removed the old GlidePath catheter, placed a 7-Greenlandic sheath within the internal jugular vein, and performed a venogram which demonstrated widely patent innominate, SVC, right atrium. With this, our catheter was replaced with a Bard 19 cm GlidePath catheter over a wire. Following this, it flushed and withdrew with ease. No kinks and twists were made. The catheter was secured in place with 3-0 Prolene. Heparin lock was placed. Sterile dressing of Surgicel, Biopatch, 4 x 4, and Tegaderm was applied. The patient tolerated the procedure well and was taken to postanesthesia care unit in stable condition. Michael Hogan D.O. [id number] /[id number] PROGRESS Observed: 07/28/2018 Status: COMPLETED Source: [place] 12:26 PM [facility] REPOSITORY O ID: [id number] Author: Michael Hogan Service: (none) Author Type: Physician Type: Progress Notes Filed: 07/28/2018 12:27 PM Note Text: This office note has been dictated. Michael Hogan DO CNOV Observed: 07/28/2018 Status: COMPLETED Source: [place] 11:30 AM [facility] REPOSITORY Office Visit (VASSMD) LUZ BACA ([id number]) 1940 F Date Time Provider Department 07/28/18 11:30 AM MICHAEL HOGAN VASBRIGHT During your visit today, we recorded the following information about you: Pulse Blood pressure Weight Height 55/minute 95/61 95 kg 1.727 m Michael Hogan DO 07/28/2018 12:27 PM Signed This office note has been dictated. Michael Hogan DO Referring Provider: MICHAEL HOGAN [[id number]] Allergies As of Date: 07/28/2018 Noted Allergy Reaction ASPIRIN 01/20/2018 14 - Other: See Comments Comments: Patient states that she bled out every orifice, sts not allowed to take it at all. Patient states she was bleeding out of nose and mouth after one dose. BACTRIM (SULFAMETHOXAZOLE-TRIMETH*05/17/2017 14 - Other: See Comments Comments: My throat swells up. LATEX 05/17/2017 2 - Rash 9 - Itching Comments: Itching and welts. No wheezing or shortness of breath. PENICILLINS 07/14/2004 2 - Rash 9 - Itching Comments: Tolerated ceftriaxone during 11/2017 admission and cefepime during 12/2017 admission TETRACYCLINE 09/29/2010 2 - Rash 8 - GI Upset Comments: Emesis and diarrhea. ATORVASTATIN 05/17/2017 2 - Rash CODEINE 05/17/2017 14 - Other: See Comments Comments: Numbness DILAUDID (HYDROMORPHONE (BULK)) 05/17/2017 1 - Mental Status Change MEPERIDINE 07/14/2004 PENTAZOCINE 07/14/2004 PIOGLITAZONE 05/17/2017 16 - Unknown PROPOXYPHENE 07/14/2004 Date Reviewed: 07/28/2018 Reviewed by: Vanessa Valiente Ma - Fully Assessed Reason for Visit: 3 week follow up [Other] Cmt: post op 07/12/18 Primary Visit Diagnosis:ESRD (end stage renal disease) ([facility]) [N18.6] Other Visit Diagnosis:Peripheral arterial disease ([facility]) [I73.9] Prescriptions as of 07/28/2018 Sig: INSULIN ASPART U-100 100 UNI* Using Sliding Scale: 150-209* INSULIN GLARGINE (U-100) 100 * Inject 50 Units subcutaneousl* INSULIN GLARGINE (U-100) 100 * Inject 32 Units subcutaneousl* CARVEDILOL 3.125 MG TABLET Take 1 tablet by mouth twice * AMIODARONE 200 MG TABLET Take 1 tablet by mouth once d* BACITRACIN ZINC 500 UNIT/GRAM* Apply 1 application to affect* POLYETHYLENE GLYCOL 3350 17 G* Use 1-2 times daily as needed* SIMVASTATIN 40 MG TABLET Take 1 tablet by mouth every * ISOSORBIDE MONONITRATE ER 30 * Take 3 tablets by mouth once * PREGABALIN 25 MG CAPSULE Take 1 tablet PO daily with a* ELIQUIS 5 MG TABLET TAKE ONE TABLET BY MOUTH TWIC* METOCLOPRAMIDE 5 MG TABLET Take 1 tablet by mouth three * PANTOPRAZOLE 40 MG TABLET,DEL* Take 1 tablet by mouth once d* SENNOSIDES 8.6 MG TABLET Take 8.6 mg by mouth once carlos* ONDANSETRON HCL 4 MG TABLET Take 4 mg by mouth every 8 ho* IPRATROPIUM-ALBUTEROL 0.5 MG-* Inhale 3 mL as instructed leanne* BUDESONIDE 0.5 MG/2 ML SUSPEN* Use 2 mL via nebulizer once d* NYSTATIN 100,000 UNIT/GRAM TO* Apply 1 application to affect* DEXTROMETHORPHAN-GUAIFENESIN * Take 5-10 mL by mouth every 6* NITROGLYCERIN 0.4 MG SUBLINGU* Dissolve 1 tablet under the t* OXYGEN (HOME THERAPY) Inhale 2.5 L/min as instructe* Problem List As Of Date 07/28/2018 Noted Resolved HOCM (hypertrophic obstructive cardiomyopathy) * 01/23/2018 Priority: I More... SVT (supraventricular tachycardia) ([facility]) [I47.1] 01/21/2018 More... Carotid artery disease (HCC) [I77.9] 01/22/2018 CAD (coronary artery disease) [I25.10] Priority: E More... Hypertension [I10] Priority: L More... Hyperlipidemia [E78.5] Pneumonia [J18.9] 10/27/2017 More... COPD (chronic obstructive pulmonary disease) (H* Priority: F More... Sleep apnea [G47.30] Priority: I More... HH (hiatus hernia) [K44.9] 01/21/2018 GERD (gastroesophageal reflux disease) [K21.9] Priority: K More... More... Arthritis [M19.90] Numbness and tingling of right leg [R20.0, R20.* 01/21/2018 Depression [F32.9] Atrial fibrillation (HCC) [I48.91] INVALID FOR* Priority: C More... Uncontrolled type 2 diabetes mellitus with stag*INVALID FOR* Priority: H More... More... More... Heart failure, systolic, acute (HCC) [I50.21] INVALID FOR*01/21/2018 More... Obesity [E66.09] INVALID FOR* Priority: M More... Gout [M10.9] Pacemaker [Z95.0] Priority: D More... Chronic combined systolic and diastolic CHF (co*INVALID FOR* Priority: B More... Elevated troponin [R74.8] INVALID FOR*01/22/2018 Priority: G More... Pulmonary hypertension (HCC) [I27.20] INVALID FOR* Oral thrush [B37.0] INVALID FOR*01/21/2018 Hyponatremia [E87.1] INVALID FOR* Priority: J More... Hyperkalemia [E87.5] INVALID FOR*01/22/2018 Priority: J Chest pain in adult [R07.9] INVALID FOR*02/12/2018 Priority: A More... Acute renal failure superimposed on stage 3 chr*INVALID FOR* Priority: A More... Obesity, Class II, BMI 35-39.9 [E66.9] INVALID FOR* ESRD on dialysis (HCC) [N18.6, Z99.2] INVALID FOR* More... Chronic hypoxemic respiratory failure (HCC) [J9*INVALID FOR* Encounter Status:Closed by MICHAEL HOGAN DO on 07/28/18 HOSP Observed: 07/28/2018 Status: COMPLETED Source: [place] 12:00 AM [facility] REPOSITORY Patient:Luz Baca MRN: <[id number]> Height:5' 8(1.727 m) Weight:209 lb 6.4 oz (94.983 kg) Outpatient Medications as of 08/02/18: insulin aspart U-100 (NOVOLOG FLEXPEN U-100 INSULIN) 100 unit/mL inpn insulin glargine (LANTUS SOLOSTAR U-100 INSULIN) 100 unit/mL (3 mL) inpn insulin glargine (LANTUS SOLOSTAR U-100 INSULIN) 100 unit/mL (3 mL) inpn carvedilol (COREG) 3.125 mg tablet amiodarone (PACERONE) 200 mg tablet bacitracin zinc (ANTIBIOTIC, BACITRACIN ZINC,) 500 unit/gram ointment polyethylene glycol 3350 (MIRALAX) 17 gram/dose powder simvastatin (ZOCOR) 40 mg tablet isosorbide mononitrate ER (IMDUR) 30 mg 24 hr tablet pregabalin (LYRICA) 25 mg capsule ELIQUIS 5 mg tab(s) metoclopramide HCl (REGLAN) [address] (PROTONIX) 40 mg tablet senna (SENNA) 8.6 mg tab ondansetron (ZOFRAN) 4 mg tablet ipratropium-albuterol (DUONEB) 0.5 mg-3 mg(2.5 mg base)/3 mL nebu budesonide (PULMICORT) 0.5 mg/2 mL nebulizer solution nystatin (NYSTOP) powder guaiFENesin-dextromethorphan (ROBITUSSIN DM) 100-10 mg/5 mL syrup nitroglycerin sublingual (NITROQUICK) 0.4 mg SL tablet OXYGEN, HOME THERAPY, Admission/Clinic Administered Medications as of 08/02/18: Patient has no admission medications. Problem List: CAD (coronary artery disease) [I25.10] Hypertension [I10] Hyperlipidemia [E78.5] COPD (chronic obstructive pulmonary disease) (HCC) [J44.9] Sleep apnea [G47.30] GERD (gastroesophageal reflux disease) [K21.9] Arthritis [M19.90] Depression [F32.9] Atrial fibrillation ([facility]) [I48.91] Uncontrolled type 2 diabetes mellitus with stage 3 chronic kidney disease, with long-term current use of insulin ([facility]) [E11.22, E11.65, N18.3, Z79.4] Obesity [E66.09] Gout [M10.9] Pacemaker [Z95.0] Chronic combined systolic and diastolic CHF (congestive heart failure) ([facility]) [I50.42] Pulmonary hypertension ([facility]) [I27.20] Hyponatremia [E87.1] Acute renal failure superimposed on stage 3 chronic kidney disease ([facility]) [N17.9, N18.3] Obesity, Class II, BMI 35-39.9 [E66.9] ESRD on dialysis ([facility]) [N18.6, Z99.2] Chronic hypoxemic respiratory failure ([facility]) [J96.11] Allergies: Aspirin Bactrim [Sulfamethoxazole-Trimethoprim] Latex Penicillins Tetracycline Atorvastatin Codeine Dilaudid [Hydromorphone (Bulk)] Meperidine Pentazocine Pioglitazone Propoxyphene Date Verified: 07/28/18 Lab Values Lab Value Units Date High Low POTA* 5.3 mmol/L 07/12/2018 5.1 3.7 Progress Notes ([facility]): Michael Hogan, 08/01/2018 9:28 AM Unsigned [employer] NAME: LUZ RUSH CLINIC NO: [id number] DATE OF SERVICE: 07/28/2018 Subjective: Ms. Baca is here to follow up on creation of right brachiocephalic AV fistula. Denies any right upper extremity complaints, numbness, weakness or difficulty with her hand. She has a thrill and bruit present in her fistula. She does complain of bilateral lower extremity throbbing, aching and swelling of her feet. She had a CTA which demonstrates bilateral SFA-popliteal stenosis and left anterior tibial artery occlusion. Her JAMIR on the right was 0.89, on the left 0.69. She recently was seen by Dr. Rodriguez and had a small blister drained on her left big toe. Currently, there is no active ulcer or further tissue breakdown of that toe. Objective: She has nonpalpable distal pulses. She has bilateral lower extremity edema. Capillary refill is brisk. Assessment/Plan: 1. Peripheral arterial disease. 2. Endstage renal disease on dialysis. We will plan to exchange her tunneled catheter on Wednesday since she has been having difficulty with this since the surgery. She is told her Eliquis on Wednesday and then we will resume it initially after the procedure. Discussing her arterial disease, I think she would benefit from compression stockings. She was given size E Tubigrip for her bilateral lower extremities and instructed on use. She may benefit from arterial venous compression pumps as her edema has not been controlled and may be contributing to her overall symptoms. We discussed doing an angiogram of her lower angiograms, but she is unable to lay flat secondary to her pulmonary status. We will have the patient arrange for a tunneled catheter on Wednesday and follow up with me at the time to further discuss any kind of intervention and pumps. She is continue to wear her compression stockings, elevate and exercise and was given activities to exercise her calf muscles. She was agreeable to this plan. Michael Hogan D.O. KB/[id number] Audio #: [id number] Date Dictated: 07/28/2018 11:37:21 Date Typed: 08/01/2018 09:18:06 Date Revised: Progress Notes ([facility] ): Michael Hogan DO 07/28/2018 12:27 PM Signed This office note has been dictated. Michael Hogan DO PROGRESS Observed: 07/28/2018 Status: COMPLETED Source: [place] 12:00 AM [facility] REPOSITORY O ID: [id number] Author: Michael Hogan Service: Vascular Surgery Author Type: Physician Type: Progress Notes Filed: 08/10/2018 3:20 PM Note Text: NAME: LUZ RUSH [facility] NO: [id number] DATE OF SERVICE: 07/28/2018 Subjective: Ms. Baca is here to follow up on creation of right brachiocephalic AV fistula. Denies any right upper extremity complaints, numbness, weakness or difficulty with her hand. She has a thrill and bruit present in her fistula. She does complain of bilateral lower extremity throbbing, aching and swelling of her feet. She had a CTA which demonstrates bilateral SFA-popliteal stenosis and left anterior tibial artery occlusion. Her JAMIR on the right was 0.89, on the left 0.69. She recently was seen by Dr. Rodriguez and had a small blister drained on her left big toe. Currently, there is no active ulcer or further tissue breakdown of that toe. Objective: She has nonpalpable distal pulses. She has bilateral lower extremity edema. Capillary refill is brisk. Assessment/Plan: 1. Peripheral arterial disease. 2. Endstage renal disease on dialysis. We will plan to exchange her tunneled catheter on Wednesday since she has been having difficulty with this since the surgery. She is told her Eliquis on Wednesday and then we will resume it initially after the procedure. Discussing her arterial disease, I think she would benefit from compression stockings. She was given size E Tubigrip for her bilateral lower extremities and instructed on use. She may benefit from arterial venous compression pumps as her edema has not been controlled and may be contributing to her overall symptoms. We discussed doing an angiogram of her lower angiograms, but she is unable to lay flat secondary to her pulmonary status. We will have the patient arrange for a tunneled catheter on Wednesday and follow up with me at the time to further discuss any kind of intervention and pumps. She is continue to wear her compression stockings, elevate and exercise and was given activities to exercise her calf muscles. She was agreeable to this plan. Michael Hogan D.O. KB/[id number] Audio #: [id number] Date Dictated: 07/28/2018 11:37:21 Date Typed: 08/01/2018 09:18:06 Date Revised: PROGRESS Observed: 07/27/2018 Status: COMPLETED Source: [place] 10:36 AM [facility] REPOSITORY HNO ID: [id number] Author: Jameson Adams) Koffi Service: (none) Author Type: Physician Type: Progress Notes Filed: 07/27/2018 10:36 AM Note Text: Reviewed. PROGRESS Observed: 07/27/2018 Status: COMPLETED Source: [place] 10:02 AM [facility] REPOSITORY HNO ID: [id number] Author: Remi Briseno) Brent Service: (none) Author Type: Registered Nurse Type: Progress Notes Filed: 07/27/2018 10:17 AM Note Text: PRIMARY CARE COORDINATION FOLLOW-UP NOTE Provider Action/FYI Pt saw Dr. Rodriguez yesterday. Drained blood blister and instructed pt to wear surgical shoe. Gave script for new diabetic shoes. TC to [employer], pt is due for another shoe per Medicare on 08/25 or after Patient identified by name and date of . YES Spoke to Angela at [employer] and Russell at Dr. Rodriguez's office Summary: TC to [facility], asked for new script for diabletic shoes, states Dr. Rodriguez wrote one yesterday and gave to pt. TC to Angela at [facility], informed pt's diabetic shoes are too tight and she is developing blisters. Pt is wearing croc clogs and pt is a fall risk. Dgt states they told [employer] at the time they got the shoes that they were too tight. Is there a way they can work on the current pair of shoes or get pt a new pair. States pt can bring the old shoes in and they can look at them. Also Medicare will pay for one pair of shoes per year and pt can get a new pair on 08/25 or after. Also asked for new prescription for diabetic shoes to be faxed to them. Informed PCC will call Dr. Rodriguez's office for script. Asked [facility] to call pt to schedule an appt and discuss with patient. Watermelon Inspector plan for next outreach: Will follow up as scheduled Signature Remi Kennedy RN July 27, 2018 ELÍASTOUTREACH Observed: 07/27/2018 Status: COMPLETED Source: [place] 12:00 AM [facility] REPOSITORY Patient Outreach (FAMPWS) LUZ BACA ([id number]) 1940 F Date Time Provider Department 07/27/18 REIM KENNEDY (ALLYSON) ANTOINE During your visit today, we recorded the following information about you: Remi Kennedy RN 07/27/2018 10:17 AM Signed PRIMARY CARE COORDINATION FOLLOW-UP NOTE Provider Action/FYI Pt saw Dr. Rodriguez yesterday. Drained blood blister and instructed pt to wear surgical shoe. Gave script for new diabetic shoes. TC to [facility], pt is due for another shoe per Medicare on 08/25 or after Patient identified by name and date of . YES Spoke to Angela at [facility] and Russell at Dr. Rodriguez's office Summary: TC to [facility], asked for new script for diabletic shoes, states Dr. Rodriguez wrote one yesterday and gave to pt. TC to Angela at [facility], informed pt's diabetic shoes are too tight and she is developing blisters. Pt is wearing croc clogs and pt is a fall risk. Dgt states they told [employer] at the time they got the shoes that they were too tight. Is there a way they can work on the current pair of shoes or get pt a new pair. States pt can bring the old shoes in and they can look at them. Also Medicare will pay for one pair of shoes per year and pt can get a new pair on 08/25 or after. Also asked for new prescription for diabetic shoes to be faxed to them. Informed PCC will call Dr. Rodriguez's office for script. Asked [facility] to call pt to schedule an appt and discuss with patient. Watermelon Inspector plan for next outreach: Will follow up as scheduled Signature Remi Kennedy RN July 27, 2018 Jameson Kamara MD 07/27/2018 10:36 AM Signed Reviewed. Allergies As of Date: 07/27/2018 Noted Allergy Reaction ASPIRIN 01/20/2018 14 - Other: See Comments Comments: Patient states that she bled out every orifice, sts not allowed to take it at all. Patient states she was bleeding out of nose and mouth after one dose. BACTRIM (SULFAMETHOXAZOLE-TRIMETH*05/17/2017 14 - Other: See Comments Comments: My throat swells up. LATEX 05/17/2017 2 - Rash 9 - Itching Comments: Itching and welts. No wheezing or shortness of breath. PENICILLINS 07/14/2004 2 - Rash 9 - Itching Comments: Tolerated ceftriaxone during 11/2017 admission and cefepime during 12/2017 admission TETRACYCLINE 09/29/2010 2 - Rash 8 - GI Upset Comments: Emesis and diarrhea. 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] Prescriptions as of 07/27/2018 Sig: INSULIN ASPART U-100 100 UNI* Using Sliding Scale: 150-209* INSULIN GLARGINE (U-100) 100 * Inject 50 Units subcutaneousl* INSULIN GLARGINE (U-100) 100 * Inject 32 Units subcutaneousl* CARVEDILOL 3.125 MG TABLET Take 1 tablet by mouth twice * AMIODARONE 200 MG TABLET Take 1 tablet by mouth once d* BACITRACIN ZINC 500 UNIT/GRAM* Apply 1 application to affect* POLYETHYLENE GLYCOL 3350 17 G* Use 1-2 times daily as needed* SIMVASTATIN 40 MG TABLET Take 1 tablet by mouth every * ISOSORBIDE MONONITRATE ER 30 * Take 3 tablets by mouth once * PREGABALIN 25 MG CAPSULE Take 1 tablet PO daily with a* ELIQUIS 5 MG TABLET TAKE ONE TABLET BY MOUTH TWIC* METOCLOPRAMIDE 5 MG TABLET Take 1 tablet by mouth three * PANTOPRAZOLE 40 MG TABLET,DEL* Take 1 tablet by mouth once d* SENNOSIDES 8.6 MG TABLET Take 8.6 mg by mouth once carlos* ONDANSETRON HCL 4 MG TABLET Take 4 mg by mouth every 8 ho* IPRATROPIUM-ALBUTEROL 0.5 MG-* Inhale 3 mL as instructed leanne* BUDESONIDE 0.5 MG/2 ML SUSPEN* Use 2 mL via nebulizer once d* NYSTATIN 100,000 UNIT/GRAM TO* Apply 1 application to affect* DEXTROMETHORPHAN-GUAIFENESIN * Take 5-10 mL by mouth every 6* NITROGLYCERIN 0.4 MG SUBLINGU* Dissolve 1 tablet under the t* OXYGEN (HOME THERAPY) Inhale 2.5 L/min as instructe* Problem List As Of Date 07/27/2018 Noted Resolved HOCM (hypertrophic obstructive cardiomyopathy) * 01/23/2018 Priority: I More... SVT (supraventricular tachycardia) (HCC) [I47.1] 01/21/2018 More... Carotid artery disease (HCC) [I77.9] 01/22/2018 CAD (coronary artery disease) [I25.10] Priority: E More... Hypertension [I10] Priority: L More... Hyperlipidemia [E78.5] Pneumonia [J18.9] 10/27/2017 More... COPD (chronic obstructive pulmonary disease) (H* Priority: F More... Sleep apnea [G47.30] Priority: I More... HH (hiatus hernia) [K44.9] 01/21/2018 GERD (gastroesophageal reflux disease) [K21.9] Priority: K More... More... Arthritis [M19.90] Numbness and tingling of right leg [R20.0, R20.* 01/21/2018 Depression [F32.9] Atrial fibrillation (HCC) [I48.91] INVALID FOR* Priority: C More... Uncontrolled type 2 diabetes mellitus with stag*INVALID FOR* Priority: H More... More... More... Heart failure, systolic, acute (HCC) [I50.21] INVALID FOR*01/21/2018 More... Obesity [E66.09] INVALID FOR* Priority: M More... Gout [M10.9] Pacemaker [Z95.0] Priority: D More... Chronic combined systolic and diastolic CHF (co*INVALID FOR* Priority: B More... Elevated troponin [R74.8] INVALID FOR*01/22/2018 Priority: G More... Pulmonary hypertension (HCC) [I27.20] INVALID FOR* Oral thrush [B37.0] INVALID FOR*01/21/2018 Hyponatremia [E87.1] INVALID FOR* Priority: J More... Hyperkalemia [E87.5] INVALID FOR*01/22/2018 Priority: J Chest pain in adult [R07.9] INVALID FOR*02/12/2018 Priority: A More... Acute renal failure superimposed on stage 3 chr*INVALID FOR* Priority: A More... Obesity, Class II, BMI 35-39.9 [E66.9] INVALID FOR* ESRD on dialysis (HCC) [N18.6, Z99.2] INVALID FOR* More... Chronic hypoxemic respiratory failure (HCC) [J9*INVALID FOR* Encounter Status:Closed by REMI KENNEDY on 07/28/18 PROGRESS Observed: 07/26/2018 Status: COMPLETED Source: [place] 8:43 PM [facility] REPOSITORY O ID: [id number] Author: Jose C Rodriguez Service: (none) Author Type: Physician Type: Progress Notes Filed: 07/26/2018 8:59 PM Note Text: Follow up podiatric office visit for: Chief Complaint: This 77 year old who presents to clinic for evaluation of blister of left hallux. She states this blister just developed 2-3 weeks ago. She has been wearing crocs despite being recommended to wear her diabetic shoes. She has diabetic shoes but claims they do not fit. She received her diabetic shoes from [employer] last October. She informed [employer] that she wears size 8.5-9.0 She has received size 8.5 but states they are too small. She recently developed blister and was seen by her pcp who has sent patient here for evaluation. She has no other complaints. PAIN EVALUATION No data found. Hemoglobin A1C Date Value Ref Range Status 05/25/2018 6.8 (H) 4.3 - 5.6 % Final PCP: Jameson Kamara MD PAST MEDICAL HISTORY Diagnosis Date - Arthritis - Atrial fibrillation (HCC) - CAD (coronary artery disease) stents x9, defibrillator, CABG. Seeing Dr. Cardona - Cardiac defibrillator in place - Cardiomegaly - Carotid artery disease (HCC) left - Chronic hypoxemic respiratory failure (HCC) 07/01/2018 - Chronic kidney disease (CKD) stage G3b/A2, moderately decreased glomerular filtration rate (GFR) between 30-44 mL/min/1.73 square meter and albuminuria creatinine ratio between 30-299 mg/g ([facility]) Dr. Martin - COPD (chronic obstructive pulmonary disease) ([facility] [facility]) Dr. Cruz - Depression - Diabetes ([facility]) - Diabetic neuropathy ([facility]) - Edema - ESRD (end stage renal disease) on dialysis ([facility]) MW, Dr. Martin - GERD (gastroesophageal reflux disease) - Gout with hyperuricemia - HH (hiatus hernia) - HOCM (hypertrophic obstructive cardiomyopathy) ([facility]) S/P Septal Myectomy in 2003. Now with LVEF 50% and mod/severe pulm HTN. - HTN (hypertension) - Hyperlipidemia - Morbid obesity with BMI of 40.0-44.9, adult ([facility]) - Presence of combination internal cardiac defibrillator (ICD) and pacemaker - Sleep apnea 2011 not on CPAP, unable to tolerate mask 02/2017 - SVT (supraventricular tachycardia) ([facility]) NSVT and questionable VT in 2003 post op Current Outpatient Prescriptions: insulin aspart U-100 (NOVOLOG FLEXPEN U-100 INSULIN) 100 unit/mL inpn Using Sliding Scale: 150-209 1 unit, 210-269 2 units, 270- 329 3 units, 330-389 4 units, 390-449 5 units insulin glargine (LANTUS SOLOSTAR U-100 INSULIN) 100 unit/mL (3 mL) inpn Inject 50 Units subcutaneously every morning. insulin glargine (LANTUS SOLOSTAR U-100 INSULIN) 100 unit/mL (3 mL) inpn Inject 32 Units subcutaneously daily at bedtime. carvedilol (COREG) 3.125 mg tablet Take 1 tablet by mouth twice daily with meals. amiodarone (PACERONE) 200 mg tablet Take 1 tablet by mouth once daily. bacitracin zinc (ANTIBIOTIC, BACITRACIN ZINC,) 500 unit/gram ointment Apply 1 application to affected area twice daily. polyethylene glycol 3350 (MIRALAX) 17 gram/dose powder Use 1-2 times daily as needed for constipation. simvastatin (ZOCOR) 40 mg tablet Take 1 tablet by mouth every morning. isosorbide mononitrate ER (IMDUR) 30 mg 24 hr tablet Take 3 tablets by mouth once daily. pregabalin (LYRICA) 25 mg capsule Take 1 tablet PO daily with an additional 1 tablet PO after dialysis MWF ELIQUIS 5 mg tab(s) TAKE ONE TABLET BY MOUTH TWICE DAILY metoclopramide HCl (REGLAN) 5 mg tablet Take 1 tablet by mouth three times daily. pantoprazole DR (PROTONIX) 40 mg tablet Take 1 tablet by mouth once daily. senna (SENNA) 8.6 mg tab Take 8.6 mg by mouth once daily. ondansetron (ZOFRAN) 4 mg tablet Take 4 mg by mouth every 8 hours as needed. ipratropium-albuterol (DUONEB) 0.5 mg-3 mg(2.5 mg base)/3 mL nebu Inhale 3 mL as instructed every 4 hours while awake. And prn for wheezing/shortness of breath. budesonide (PULMICORT) 0.5 mg/2 mL nebulizer solution Use 2 mL via nebulizer once daily. INHALE 2 ML BY NEBULIZER OVER 5-15 MINUTES EVERY 12 HOURS. nystatin (NYSTOP) powder Apply 1 application to affected area three times daily. guaiFENesin-dextromethorphan (ROBITUSSIN DM) 100-10 mg/5 mL syrup Take 5-10 mL by mouth every 6 hours as needed for Cough. nitroglycerin sublingual (NITROQUICK) 0.4 mg SL tablet Dissolve 1 tablet under the tongue every 5 minutes as needed. OXYGEN, HOME THERAPY, Inhale 2.5 L/min as instructed continuous. 3 L/min when leaves home. No current facility-administered medications for this visit. ALLERGIES Allergen Reactions - Aspirin Other: See Comments Patient states that she bled out every orifice, sts not allowed to take it at all. Patient states she was bleeding out of nose and mouth after one dose. - Bactrim [Sulfametho* Other: See Comments My throat swells up. - Latex Rash, Itching Itching and welts. No wheezing or shortness of breath. - Penicillins Rash, Itching Tolerated ceftriaxone during 11/2017 admission and cefepime during 12/2017 admission - Tetracycline Rash, GI Upset Emesis and diarrhea. - Atorvastatin Rash - Codeine Other: See Comments Numbness - Dilaudid [Hydromorp* Mental Status Change - Meperidine - Pentazocine - Pioglitazone Unknown - Propoxyphene PAST SURGICAL HISTORY Procedure Laterality Date - CABG (1) VEIN GRAFT AND ARTERIAL GRAFT - CHOLECYSTECTOMY HX - DIALYSIS ACCESS SYSTEM - HEART SURGERY HX 07/18/2004 Septal myectomy and CABG x2 (DEBORAH-LAD, SVG-PDA). - HYSTERECTOMY HX - IANDD PERIANAL ABSCESS - PACEMAKER with defib - PAST SURGICAL HISTORY OF left breast nodule removed - PAST SURGICAL HISTORY OF skin lesions removed - STENT PLACEMENT coronary Physical Exam: Constitutional: Pt is a well developed 77 year old female who is alert, oriented, cooperative and in no apparent distress. OBJECTIVE: NVSI unchanged from previous visit. Dermatological: Nails 1-5 b/l are normal in length but dystrophic. There is noninfected, blood filled blister to distal tuft of left hallux. There is dryness noted to b/l feet. No other wounds present to b/l feet. Musculoskeletal/Orthopaedic: Patient has no pain to palpation of b/l feet ASSESSMENT: (S90.425A) Blister of toe of left foot, initial encounter (primary encounter diagnosis) (E11.49) Other diabetic neurological complication associated with type 2 diabetes mellitus (HCC) (I73.9) PAD (peripheral artery disease) ([facility]) PLAN: 1. History and physical examination completed today. 2. Discussed blister of left hallux. It is noninfected. Under sterile technique, this was drained today. Recommend patient apply betadine to her foot daily . Will order xray for baseline study. She has had issues walking in surgical shoe in past but I feel that surgical shoe is necessary to eliminate pressure to tip of great toe. I recommend she use the surgical shoe around the house but if she is expected to walk long distances, I will allow her to use her new shoes she purchased today as they seem to accommodate the toes nicely . Again, I prefer the surgical shoe. 3. She has appointment with Dr. Hogan on . I will forward note to dR. Hogan so that she can evaluate the toe from a vascular stand point and to assure healing is noted. I will see her in one week. 4. Diabetic custom shoes were ordered. I evaluated her old diabetic shoes. It should be noted that they appear to be adequate in length but due to swelling of foot, I suspect this is why her feet feel tight. Will order custom shoes. 5. Recommend she apply lotion to her feet daily . 6. F/u in 1 week Jose C Rodriguez DPM PROGRESS Observed: 07/26/2018 Status: COMPLETED Source: [place] 1:19 PM [facility] REPOSITORY HNO ID: [id number] Author: Kathie Leavitt MA Service: (none) Author Type: (none) Type: Progress Notes Filed: 07/26/2018 8:59 PM Note Text: Applied betadine on L hallux ulcer and covered with band aid. Patient declined Post Op shoe that she was dispensed KM. PROGRESS Observed: 07/26/2018 Status: COMPLETED Source: [place] 12:39 PM [facility] REPOSITORY HNO ID: [id number] Author: Esperanza (Rt) Guadalupe Aldana Service: (none) Author Type: Warehouse Material Handler Type: Progress Notes Filed: 07/26/2018 12:39 PM Note Text: Radiology Service Progress Note PATIENT NAME: Luz Baca DATE OF SERVICE: July 26, 2018 TIME: 12:39 PM PATIENT IDENTITY VERIFICATION COMPLETED USING TWO (2) METHODS: Patient confirmed name verbally and Date of . PATIENT GENDER DATA: Female. status: : No status: NO. PATIENT RELEVANT IMPLANT DATA REVIEWED: Not Applicable RADIOLOGY DEPARTMENT: General X-ray: Exam(s) Completed: Lower Extremity X-Ray(s): Foot, Left and Wt. Bearing: PERIPHERAL IV DATA: Not applicable SIGNED BY: RT Enrike July 26, 2018 12:39 PM XR FOOT 3V AP/LAT/OBL Observed: 07/26/2018 Status: F Source: [facility] 12:37 PM [facility] REPOSITORY * * *Final Report* * * DATE OF EXAM: Jul 26 2018 12:37PM [id number] [id number] - XR FOOT 3V AP/LAT/OBL LT / PROCEDURE REASON: multiple diagnoses * * * * Physician Interpretation * * * * HISTORY: 77-YEAR-OLD FEMALE WITH Blister of toe of left foot, initial encounter PAD (peripheral artery disease) ([facility]) . open wound on the tip of the left foot 1st digit for 3 days. no injury TECHNIQUE: XR FOOT 3V AP/LAT/OBL LT Laterality: LEFT Number of different views (projections): 3 COMPARISON: None RESULT: Osteopenia. Soft tissue swelling about the distal right toe. No evidence of osteomyelitis. Calcaneal enthesophyte insertion Achilles tendon plantar fascia. Mild soft tissue swelling of dorsum the forefoot. IMPRESSION: NO EVIDENCE OF OSTEOMYELITIS. Service Delivery Supervisor: PSCB Transcribe Date/Time: Jul 26 2018 5:08P Dictated by : LUIS MCCRARY MD This examination was interpreted and the report reviewed and electronically signed by: LUIS MCCRARY MD on Jul 26 2018 5:10PM EST [id number] PROGRESS Observed: 07/26/2018 Status: COMPLETED Source: [place] 11:35 AM [facility] REPOSITORY HNO ID: [id number] Author: Katie Gonzalez RN Service: (none) Author Type: (none) Type: Progress Notes Filed: 07/26/2018 8:59 PM Note Text: AMB ROOMING INTAKE FLOWSHEET DATA Risk Screening Do you have concerns about personal safety or safety in the home?: No Patient presents for evaluation of blood blister on L hallux. Denies pain. Blister present for approx 4 days. Pt had been wearing crocs because the post op shoes she was given were causing her to fall. She had blister evaluated at her PCP's office on Wednesday and was instructed to stop wearing Crocs and follow up with podiatry. She presents to office wearing K-Palestinian shoes she purchased today at [employer]. She has received diabetic shoes from [employer] but states they are too small. She was advised to go to [employer] and exchange for a different pair but her daugher states no, we're done messing with [employer]. Pt is keeping toe covered with band aid. CNOV Observed: 07/26/2018 Status: COMPLETED Source: [place] 11:25 AM [facility] REPOSITORY Office Visit (PODIWS) LUZ BACA ([id number]) 1940 F Date Time Provider Department 07/26/18 11:25 AM JOSE C RODRIGUEZ PODIWS During your visit today, we recorded the following information about you: Katie Gonzalez RN 07/26/2018 8:59 PM Signed AMB ROOMING INTAKE FLOWSHEET DATA Risk Screening Do you have concerns about personal safety or safety in the home?: No Patient presents for evaluation of blood blister on L hallux. Denies pain. Blister present for approx 4 days. Pt had been wearing crocs because the post op shoes she was given were causing her to fall. She had blister evaluated at her PCP's office on Wednesday and was instructed to stop wearing Crocs and follow up with podiatry. She presents to office wearing K-Palestinian shoes she purchased today at [facility]. She has received diabetic shoes from [employer] but states they are too small. She was advised to go to [employer] and exchange for a different pair but her daugher states no, we're done messing with [employer]. Pt is keeping toe covered with band aid. Kathie Leavitt MA 07/26/2018 12:16 PM Addendum Betadine daily to toe Where Post Op shoe Have XR today we will call with results. [facility] [address] [facility] [address] PH: [phone] [place] [address], [facility] [address] PH: [phone] [place] [address] [facility] [address] PH: [phone] [place] [address] [facility] [address] PH: [phone] or [phone] [place] [address] [facility] [address] PH: [phone] [place] [address] [facility] [address] PH: [phone] Kathie Leavitt MA 07/26/2018 8:59 PM Signed Applied betadine on L hallux ulcer and covered with band aid. Patient declined Post Op shoe that she was dispensed KM. Jose C Rodriguez DPM 07/26/2018 8:59 PM Signed Follow up podiatric office visit for: Chief Complaint: This 77 year old who presents to clinic for evaluation of blister of left hallux. She states this blister just developed 2-3 weeks ago. She has been wearing crocs despite being recommended to wear her diabetic shoes. She has diabetic shoes but claims they do not fit. She received her diabetic shoes from [employer] last October. She informed [employer] that she wears size 8.5-9.0 She has received size 8.5 but states they are too small. She recently developed blister and was seen by her pcp who has sent patient here for evaluation. She has no other complaints. PAIN EVALUATION No data found. Hemoglobin A1C Date Value Ref Range Status 05/25/2018 6.8 (H) 4.3 - 5.6 % Final PCP: Jameson Kamara MD PAST MEDICAL HISTORY Diagnosis Date - Arthritis - Atrial fibrillation ([facility]) - CAD (coronary artery disease) stents x9, defibrillator, CABG. Seeing Dr. Cardona - Cardiac defibrillator in place - Cardiomegaly - Carotid artery disease ([facility]) left - Chronic hypoxemic respiratory failure ([facility]) 07/01/2018 - Chronic kidney disease (CKD) stage G3b/A2, moderately decreased glomerular filtration rate (GFR) between 30-44 mL/min/1.73 square meter and albuminuria creatinine ratio between 30-299 mg/g ([facility]) Dr. Martin - COPD (chronic obstructive pulmonary disease) ([facility]) Dr. Cruz - Depression - Diabetes ([facility]) - Diabetic neuropathy ([facility]) - Edema - ESRD (end stage renal disease) on dialysis ([facility]) [facility], Dr. Martin - GERD (gastroesophageal reflux disease) - Gout with hyperuricemia - HH (hiatus hernia) - HOCM (hypertrophic obstructive cardiomyopathy) ([facility]) S/P Septal Myectomy in 2003. Now with LVEF 50% and mod/severe pulm HTN. - HTN (hypertension) - Hyperlipidemia - Morbid obesity with BMI of 40.0-44.9, adult ([facility]) - Presence of combination internal cardiac defibrillator (ICD) and pacemaker - Sleep apnea 2011 not on CPAP, unable to tolerate mask 02/2017 - SVT (supraventricular tachycardia) ([facility]) NSVT and questionable VT in 2003 post op Current Outpatient Prescriptions: insulin aspart U-100 (NOVOLOG FLEXPEN U-100 INSULIN) 100 unit/mL inpn Using Sliding Scale: 150-209 1 unit, 210-269 2 units, 270-329 3 units, 330-389 4 units, 390-449 5 units insulin glargine (LANTUS SOLOSTAR U-100 INSULIN) 100 unit/mL (3 mL) inpn Inject 50 Units subcutaneously every morning. insulin glargine (LANTUS SOLOSTAR U-100 INSULIN) 100 unit/mL (3 mL) inpn Inject 32 Units subcutaneously daily at bedtime. carvedilol (COREG) 3.125 mg tablet Take 1 tablet by mouth twice daily with meals. amiodarone (PACERONE) 200 mg tablet Take 1 tablet by mouth once daily. bacitracin zinc (ANTIBIOTIC, BACITRACIN ZINC,) 500 unit/gram ointment Apply 1 application to affected area twice daily. polyethylene glycol 3350 (MIRALAX) 17 gram/dose powder Use 1-2 times daily as needed for constipation. simvastatin (ZOCOR) 40 mg tablet Take 1 tablet by mouth every morning. isosorbide mononitrate ER (IMDUR) 30 mg 24 hr tablet Take 3 tablets by mouth once daily. pregabalin (LYRICA) 25 mg capsule Take 1 tablet PO daily with an additional 1 tablet PO after dialysis MWF ELIQUIS 5 mg tab(s) TAKE ONE TABLET BY MOUTH TWICE DAILY metoclopramide HCl (REGLAN) 5 mg tablet Take 1 tablet by mouth three times daily. pantoprazole DR (PROTONIX) 40 mg tablet Take 1 tablet by mouth once daily. senna (SENNA) 8.6 mg tab Take 8.6 mg by mouth once daily. ondansetron (ZOFRAN) 4 mg tablet Take 4 mg by mouth every 8 hours as needed. ipratropium-albuterol (DUONEB) 0.5 mg-3 mg(2.5 mg base)/3 mL nebu Inhale 3 mL as instructed every 4 hours while awake. And prn for wheezing/shortness of breath. budesonide (PULMICORT) 0.5 mg/2 mL nebulizer solution Use 2 mL via nebulizer once daily. INHALE 2 ML BY NEBULIZER OVER 5-15 MINUTES EVERY 12 HOURS. nystatin (NYSTOP) powder Apply 1 application to affected area three times daily. guaiFENesin-dextromethorphan (ROBITUSSIN DM) 100-10 mg/5 mL syrup Take 5-10 mL by mouth every 6 hours as needed for Cough. nitroglycerin sublingual (NITROQUICK) 0.4 mg SL tablet Dissolve 1 tablet under the tongue every 5 minutes as needed. OXYGEN, HOME THERAPY, Inhale 2.5 L/min as instructed continuous. 3 L/min when leaves home. No current facility-administered medications for this visit. ALLERGIES Allergen Reactions - Aspirin Other: See Comments Patient states that she bled out every orifice, sts not allowed to take it at all. Patient states she was bleeding out of nose and mouth after one dose. - Bactrim [Sulfametho* Other: See Comments My throat swells up. - Latex Rash, Itching Itching and welts. No wheezing or shortness of breath. - Penicillins Rash, Itching Tolerated ceftriaxone during 11/2017 admission and cefepime during 12/2017 admission - Tetracycline Rash, GI Upset Emesis and diarrhea. - Atorvastatin Rash - Codeine Other: See Comments Numbness - Dilaudid [Hydromorp* Mental Status Change - Meperidine - Pentazocine - Pioglitazone Unknown - Propoxyphene PAST SURGICAL HISTORY Procedure Laterality Date - CABG (1) VEIN GRAFT AND ARTERIAL GRAFT - CHOLECYSTECTOMY HX - DIALYSIS ACCESS SYSTEM - HEART SURGERY HX 07/18/2004 Septal myectomy and CABG x2 (DEBORAH-LAD, SVG-PDA). - HYSTERECTOMY HX - IANDD PERIANAL ABSCESS - PACEMAKER with defib - PAST SURGICAL HISTORY OF left breast nodule removed - PAST SURGICAL HISTORY OF skin lesions removed - STENT PLACEMENT coronary Physical Exam: Constitutional: Pt is a well developed 77 year old female who is alert, oriented, cooperative and in no apparent distress. OBJECTIVE: NVSI unchanged from previous visit. Dermatological: Nails 1-5 b/l are normal in length but dystrophic. There is noninfected, blood filled blister to distal tuft of left hallux. There is dryness noted to b/l feet. No other wounds present to b/l feet. Musculoskeletal/Orthopaedic: Patient has no pain to palpation of b/l feet ASSESSMENT: (S90.425A) Blister of toe of left foot, initial encounter (primary encounter diagnosis) (E11.49) Other diabetic neurological complication associated with type 2 diabetes mellitus (HCC) (I73.9) PAD (peripheral artery disease) ([facility]) PLAN: 1. History and physical examination completed today. 2. Discussed blister of left hallux. It is noninfected. Under sterile technique, this was drained today. Recommend patient apply betadine to her foot daily . Will order xray for baseline study. She has had issues walking in surgical shoe in past but I feel that surgical shoe is necessary to eliminate pressure to tip of great toe. I recommend she use the surgical shoe around the house but if she is expected to walk long distances, I will allow her to use her new shoes she purchased today as they seem to accommodate the toes nicely . Again, I prefer the surgical shoe. 3. She has appointment with Dr. Hogan on . I will forward note to dR. Hogan so that she can evaluate the toe from a vascular stand point and to assure healing is noted. I will see her in one week. 4. Diabetic custom shoes were ordered. I evaluated her old diabetic shoes. It should be noted that they appear to be adequate in length but due to swelling of foot, I suspect this is why her feet feel tight. Will order custom shoes. 5. Recommend she apply lotion to her feet daily . 6. F/u in 1 week Jose C Rodriguez DPM Referring Provider: JOSE C RODRIGUEZ [[id number]] Allergies As of Date: 07/26/2018 Noted Allergy Reaction ASPIRIN 01/20/2018 14 - Other: See Comments Comments: Patient states that she bled out every orifice, sts not allowed to take it at all. Patient states she was bleeding out of nose and mouth after one dose. BACTRIM (SULFAMETHOXAZOLE-TRIMETH*05/17/2017 14 - Other: See Comments Comments: My throat swells up. LATEX 05/17/2017 2 - Rash 9 - Itching Comments: Itching and welts. No wheezing or shortness of breath. PENICILLINS 07/14/2004 2 - Rash 9 - Itching Comments: Tolerated ceftriaxone during 11/2017 admission and cefepime during 12/2017 admission TETRACYCLINE 09/29/2010 2 - Rash 8 - GI Upset Comments: Emesis and diarrhea. ATORVASTATIN 05/17/2017 2 - Rash CODEINE 05/17/2017 14 - Other: See Comments Comments: Numbness DILAUDID (HYDROMORPHONE (BULK)) 05/17/2017 1 - Mental Status Change MEPERIDINE 07/14/2004 PENTAZOCINE 07/14/2004 PIOGLITAZONE 05/17/2017 16 - Unknown PROPOXYPHENE 07/14/2004 Date Reviewed: 07/26/2018 Reviewed by: Katie Gonzalez RN - Fully Assessed Reason for Visit: Blood blister [Other] Primary Visit Diagnosis:Blister of toe of left foot, initial encounter [S90.425A] Other Visit Diagnoses:Other diabetic neurological complication associated with type 2 diabetes mellitus ([facility]) [E11.49] PAD (peripheral artery disease) ([facility]) [I73.9] Order(s):XR FOOT GENERAL 3V AP/LAT/OBL LT [[id number]] Order #: [id number] FUTURE ORTHO SHOE CUSTOM SHOES [[id number]] Order #: [id number] Prescriptions as of 07/26/2018 Sig: INSULIN ASPART U-100 100 UNI* Using Sliding Scale: 150-209* INSULIN GLARGINE (U-100) 100 * Inject 50 Units subcutaneousl* INSULIN GLARGINE (U-100) 100 * Inject 32 Units subcutaneousl* CARVEDILOL 3.125 MG TABLET Take 1 tablet by mouth twice * AMIODARONE 200 MG TABLET Take 1 tablet by mouth once d* BACITRACIN ZINC 500 UNIT/GRAM* Apply 1 application to affect* POLYETHYLENE GLYCOL 3350 17 G* Use 1-2 times daily as needed* SIMVASTATIN 40 MG TABLET Take 1 tablet by mouth every * ISOSORBIDE MONONITRATE ER 30 * Take 3 tablets by mouth once * PREGABALIN 25 MG CAPSULE Take 1 tablet PO daily with a* ELIQUIS 5 MG TABLET TAKE ONE TABLET BY MOUTH TWIC* METOCLOPRAMIDE 5 MG TABLET Take 1 tablet by mouth three * PANTOPRAZOLE 40 MG TABLET,DEL* Take 1 tablet by mouth once d* SENNOSIDES 8.6 MG TABLET Take 8.6 mg by mouth once carlos* ONDANSETRON HCL 4 MG TABLET Take 4 mg by mouth every 8 ho* IPRATROPIUM-ALBUTEROL 0.5 MG-* Inhale 3 mL as instructed leanne* BUDESONIDE 0.5 MG/2 ML SUSPEN* Use 2 mL via nebulizer once d* NYSTATIN 100,000 UNIT/GRAM TO* Apply 1 application to affect* DEXTROMETHORPHAN-GUAIFENESIN * Take 5-10 mL by mouth every 6* NITROGLYCERIN 0.4 MG SUBLINGU* Dissolve 1 tablet under the t* OXYGEN (HOME THERAPY) Inhale 2.5 L/min as instructe* Problem List As Of Date 07/26/2018 Noted Resolved HOCM (hypertrophic obstructive cardiomyopathy) * 01/23/2018 Priority: I More... SVT (supraventricular tachycardia) (HCC) [I47.1] 01/21/2018 More... Carotid artery disease (HCC) [I77.9] 01/22/2018 CAD (coronary artery disease) [I25.10] Priority: E More... Hypertension [I10] Priority: L More... Hyperlipidemia [E78.5] Pneumonia [J18.9] 10/27/2017 More... COPD (chronic obstructive pulmonary disease) (H* Priority: F More... Sleep apnea [G47.30] Priority: I More... HH (hiatus hernia) [K44.9] 01/21/2018 GERD (gastroesophageal reflux disease) [K21.9] Priority: K More... More... Arthritis [M19.90] Numbness and tingling of right leg [R20.0, R20.* 01/21/2018 Depression [F32.9] Atrial fibrillation (HCC) [I48.91] INVALID FOR* Priority: C More... Uncontrolled type 2 diabetes mellitus with stag*INVALID FOR* Priority: H More... More... More... Heart failure, systolic, acute (HCC) [I50.21] INVALID FOR*01/21/2018 More... Obesity [E66.09] INVALID FOR* Priority: M More... Gout [M10.9] Pacemaker [Z95.0] Priority: D More... Chronic combined systolic and diastolic CHF (co*INVALID FOR* Priority: B More... Elevated troponin [R74.8] INVALID FOR*01/22/2018 Priority: G More... Pulmonary hypertension (HCC) [I27.20] INVALID FOR* Oral thrush [B37.0] INVALID FOR*01/21/2018 Hyponatremia [E87.1] INVALID FOR* Priority: J More... Hyperkalemia [E87.5] INVALID FOR*01/22/2018 Priority: J Chest pain in adult [R07.9] INVALID FOR*02/12/2018 Priority: A More... Acute renal failure superimposed on stage 3 chr*INVALID FOR* Priority: A More... Obesity, Class II, BMI 35-39.9 [E66.9] INVALID FOR* ESRD on dialysis (HCC) [N18.6, Z99.2] INVALID FOR* More... Chronic hypoxemic respiratory failure (HCC) [J9*INVALID FOR* Other instructions from your clinician: Betadine daily to toe Where Post Op shoe Have XR today we will call with results. Desiree Bioncs [place] [address], [facility] [address] PH: [phone] [place] [address], [place] [address] PH: [phone] [place] [address], [place] [address] PH: [phone] [place] [address], [facility] [address] PH: [phone] or [phone] [place] [address], [facility] [address] PH: [phone] [place] [address] [facility] [address] PH: [phone] Disposition: Return in about 1 week (around 08/02/2018) for Left toe f/u. Follow-up and Disposition History Recorded Encounter Status:Closed by JOSE C RODRIGUEZ DPM on 07/26/18 PROGRESS Observed: 07/21/2018 Status: COMPLETED Source: [place] 5:09 PM [facility] [place] REPOSITORY HNO ID: [id number] Author: Remi (Rn) Brent Service: (none) Author Type: Registered Nurse Type: Progress Notes Filed: 07/21/2018 5:24 PM Note Text: PRIMARY CARE COORDINATION IN OFFICE VISIT WITH PCP Patient has been identified by name and date of . PCP Assessment/Plan: Reviewed PCP plan with patient using [employer] Discussed Diabetic Shoes and pt can take them back to [facility] for them to fix or order new ones. Pt's daughter became upset and stated they knew the shoes didn't fit well when pt picked them up. Pt could hardly get them on when they tried them on in store. PCC Plan of Care: Patient concerns: Concerned about diabetic shoes that don't fit. States crocs are the only shoes she can get on. PCC Interventions: TC to [facility] nurse of Dr. Rodriguez, informed pt has blood blister on end of toe and PCP wants pt seen. Appt made for next Wednesday at 11:25. Discussed ill fitting diabetic shoes and PCP wants Dr. Rodriguez to get pt shoes that fit well so pt doesn't wear crocs. States pt can go back to [facility] and they should fix them or give her a new pair. Next Office Visit: 10/06/2018 Plan For Next Call: One week Remi Kennedy RN July 21, 2018 PROGRESS Observed: 07/21/2018 Status: COMPLETED Source: [place] 4:33 PM [facility] [place] REPOSITORY O ID: [id number] Author: Jameson Adams) Koffi Service: (none) Author Type: Physician Type: Progress Notes Filed: 07/22/2018 8:05 AM Note Text: Chief Complaint Patient presents with: Low Blood Sugar Blister: left big toe HPI Luz Baca is a 77 year old female who presents here today for Above Complaints.. Has had hypoglycemic episodes into the mornings typically between 3-5 am with readings into the 50s with sweating, shaking, nauseous without vomiting. Treats with cookie or glucose tablets and sugars normalize. 3 episodes in total in the last 2-3 weeks. Taking insulin as prescribed and eating regular meals. Noticed blood blister on left great toe about 4 days ago. Contacted office and advised to lotion area and to stop wearing crocs. States she does not have other shoes she can wear and diabetic shoes from Dr. Rodriguez's office were actually surgical boot which caused her to lose her balance. Lesion has become painful and increased in size. Previous lesions have not changed. Has not scheduled f/u appointment with podiatry yet. Past medical history, appointments, medications, allergies reviewed. Previous Medical History PAST MEDICAL HISTORY Diagnosis Date - Arthritis - Atrial fibrillation (HCC) - CAD (coronary artery disease) stents x9, defibrillator, CABG. Seeing Dr. Cardona - Cardiac defibrillator in place - Cardiomegaly - Carotid artery disease (HCC) left - Chronic hypoxemic respiratory failure ([facility]) 07/01/2018 - Chronic kidney disease (CKD) stage G3b/A2, moderately decreased glomerular filtration rate (GFR) between 30-44 mL/min/1.73 square meter and albuminuria creatinine ratio between 30-299 mg/g ([facility]) Dr. Martin - COPD (chronic obstructive pulmonary disease) ([facility]) Dr. Cruz - Depression - Diabetes ([facility]) - Diabetic neuropathy ([facility]) - Edema - ESRD (end stage renal disease) on dialysis ([facility]) MWF, Dr. Martin - GERD (gastroesophageal reflux disease) - Gout with hyperuricemia - HH (hiatus hernia) - HOCM (hypertrophic obstructive cardiomyopathy) ([facility]) S/P Septal Myectomy in 2003. Now with LVEF 50% and mod/severe pulm HTN. - HTN (hypertension) - Hyperlipidemia - Morbid obesity with BMI of 40.0-44.9, adult ([facility]) - Presence of combination internal cardiac defibrillator (ICD) and pacemaker - Sleep apnea 2011 not on CPAP, unable to tolerate mask 02/2017 - SVT (supraventricular tachycardia) ([facility]) NSVT and questionable VT in 2003 post op Previous Surgical History PAST SURGICAL HISTORY Procedure Laterality Date - CABG (1) VEIN GRAFT AND ARTERIAL GRAFT - CHOLECYSTECTOMY HX - DIALYSIS ACCESS SYSTEM - HEART SURGERY HX 07/18/2004 Septal myectomy and CABG x2 (DEBORAH-LAD, SVG-PDA). - HYSTERECTOMY HX - IANDD PERIANAL ABSCESS - PACEMAKER with defib - PAST SURGICAL HISTORY OF left breast nodule removed - PAST SURGICAL HISTORY OF skin lesions removed - STENT PLACEMENT coronary Family History FAMILY HISTORY Problem Relation Age of Onset - Hypertension Mother living at age 93, HTN - Heart Failure Mother [place] - Cancer Father age 71, lung cancer - Heart Attack Sister - COPD Brother - Heart Paternal Grandmother - Heart Paternal Grandfather - Heart Sister - Diabetes Sister - Heart Sister - Breast Cancer Sister - Diabetes Sister - Hypertension Brother - Diabetes Brother Patient Allergies ALLERGIES Allergen Reactions - Aspirin Other: See Comments Patient states that she bled out every orifice, sts not allowed to take it at all. Patient states she was bleeding out of nose and mouth after one dose. - Bactrim [Sulfametho* Other: See Comments My throat swells up. - Latex Rash, Itching Itching and welts. No wheezing or shortness of breath. - Penicillins Rash, Itching Tolerated ceftriaxone during 11/2017 admission and cefepime during 12/2017 admission - Tetracycline Rash, GI Upset Emesis and diarrhea. - Atorvastatin Rash - Codeine Other: See Comments Numbness - Dilaudid [Hydromorp* Mental Status Change - Meperidine - Pentazocine - Pioglitazone Unknown - Propoxyphene Current Medications Current Outpatient Prescriptions on File Prior to Visit: carvedilol (COREG) 3.125 mg tablet Take 1 tablet by mouth twice daily with meals. amiodarone (PACERONE) 200 mg tablet Take 1 tablet by mouth once daily. bacitracin zinc (ANTIBIOTIC, BACITRACIN ZINC,) 500 unit/gram ointment Apply 1 application to affected area twice daily. polyethylene glycol 3350 (MIRALAX) 17 gram/dose powder Use 1-2 times daily as needed for constipation. simvastatin (ZOCOR) 40 mg tablet Take 1 tablet by mouth every morning. isosorbide mononitrate ER (IMDUR) 30 mg 24 hr tablet Take 3 tablets by mouth once daily. pregabalin (LYRICA) 25 mg capsule Take 1 tablet PO daily with an additional 1 tablet PO after dialysis MWF ELIQUIS 5 mg tab(s) TAKE ONE TABLET BY MOUTH TWICE DAILY metoclopramide HCl (REGLAN) 5 mg tablet Take 1 tablet by mouth three times daily. pantoprazole DR (PROTONIX) 40 mg tablet Take 1 tablet by mouth once daily. insulin aspart U-100 (NOVOLOG FLEXPEN U-100 INSULIN) 100 unit/mL inpn Using Sliding Scale: 150-209 1 unit, 210-269 2 units, 270- 329 3 units, 330-389 4 units, 390-449 5 units senna (SENNA) 8.6 mg tab Take 8.6 mg by mouth once daily. ondansetron (ZOFRAN) 4 mg tablet Take 4 mg by mouth every 8 hours as needed. ipratropium-albuterol (DUONEB) 0.5 mg-3 mg(2.5 mg base)/3 mL nebu Inhale 3 mL as instructed every 4 hours while awake. And prn for wheezing/shortness of breath. budesonide (PULMICORT) 0.5 mg/2 mL nebulizer solution Use 2 mL via nebulizer once daily. INHALE 2 ML BY NEBULIZER OVER 5-15 MINUTES EVERY 12 HOURS. insulin glargine (LANTUS SOLOSTAR U-100 INSULIN) 100 unit/mL (3 mL) inpn Inject 50 Units subcutaneously every morning. insulin glargine (LANTUS SOLOSTAR U-100 INSULIN) 100 unit/mL (3 mL) inpn Inject 36 Units subcutaneously daily at bedtime. nystatin (NYSTOP) powder Apply 1 application to affected area three times daily. guaiFENesin-dextromethorphan (ROBITUSSIN DM) 100-10 mg/5 mL syrup Take 5-10 mL by mouth every 6 hours as needed for Cough. nitroglycerin sublingual (NITROQUICK) 0.4 mg SL tablet Dissolve 1 tablet under the tongue every 5 minutes as needed. OXYGEN, HOME THERAPY, Inhale 2.5 L/min as instructed continuous. 3 L/min when leaves home. No current facility-administered medications on file prior to visit. Social History Social History Marital status: Spouse name: Years of education: Number of children: Social History Main Topics Smoking status: Former Smoker Packs/day: 2.50 Years: 43.00 Types: Cigarettes Start date: 1961 Quit date: 07/07/2004 Smokeless tobacco: Never Used Alcohol use: No Drug use: No Other Topics Concern Caffeine Concern Yes Comment:coffee 1 cup daily Special Diet No Comment:Regular Exercise No Comment:no unable, due to SOB x several months. Social History Narrative Patient and daughter live together. Review of Symptoms REVIEW OF SYSTEMS GENERAL: No weight loss, malaise or fevers RESPIRATORY: Negative for cough, hemoptysis, wheezing, COPD, dyspnea or shortness of breath CARDIOVASCULAR: Negative for chest pain, leg swelling, hypertension, CHF or palpitations GI: No nausea, vomiting, or diarrhea MUSCULOSKELETAL: Negative for joint pain or swelling, back pain or muscle pain EXAM: BP 128/62 (BP Site: Left Arm, BP Position: Sitting, BP Cuff Size: Regular Adult) Pulse 62 Resp 18 Wt 94.3 kg (208 lb) BMI 31.63 kg/m? General Appearance: Well appearing, alert, in no acute distress, well-hydrated, well nourished.. Skin: 1 cm diameter blood blister over end of left great toe, mild TTP without surrounding erythema or drainage. Lesions on tips of 2nd and 3rd toe show mild improvement from last OV. Crusting over 0.5 cm lesions without drainage or erythema. Lungs: Lungs clear to auscultation. No wheezing, rhonchi, rales. Heart: RRR without murmur, gallop, or rubs. No ectopy. Health Maintenance List INFLUENZA(1) due on 06/18/2018 DAMION/ARB MED PRESCRIBED due on 06/23/2018 STATIN MED ADHERENCE due on 08/18/2018 DIABETES MED ADHERENCE due on 08/18/2018 DILATED RETINAL EXAM due on 10/27/2018 HBA1C due on 11/25/2018 DIABETIC FOOT EXAM due on 01/31/2019 HEMOGLOBIN/HEMATOCRIT due on 05/10/2019 URINE ALBUMIN:CREATININE RATIO due on 05/25/2019 LDL CHOLESTEROL due on 05/25/2019 SERUM CREATININE due on 06/30/2019 COLORECTAL CANCER SCREENING,SEE MODIFIER due on 07/05/2019 ANNUAL PCP TEAM CHRONIC DISEASE VISIT due on 07/05/2019 BP CONTROLLED (<130/80) due on 07/05/2019 DTAP,TDAP,TD(2 - Td) due on 07/05/2028 BONE DENSITY Completed ADULT PREVNAR-13 Completed PNEUMOVAX AGE 65 AND OVER WITH 5YR LOOKBACK Completed ASSESSMENT/PLAN: 1. Hypoglycemia - ICD9: 251.2, ICD10: E16.2 (primary diagnosis) Decrease bedtime dose of Lantus to 32 units from 36 units. Continue to monitor glucose 2-3 times per day. To call with recurrent episodes of hypoglycemia. 2. Uncontrolled type 2 diabetes mellitus with stage 3 chronic kidney disease, with long-term current use of insulin (HCC) - ICD9: 250.52, 585.3, V58.67, ICD10: E11.22, E11.65, N18.3, Z79.4 - INSULIN ASPART U-100 100 UNIT/ML SUBCUTANEOUS PEN 3. Blister of toe of left foot without infection, initial encounter - ICD9: 917.2, ICD10: S90.425A Dressed with gauze in the office. PCC contacted podiatry office for follow up and discussion of alternative diabetic shoes. Again discussed that wearing lose shoes Is causing them to rub on her toes and causing these lesions. Advised of red flag symptoms she should be seen for immediately. Jameson Kamara MD CNOV Observed: 07/21/2018 Status: COMPLETED Source: [place] 4:20 PM [facility] REPOSITORY [facility] LUZ BACA ([id number]) 1940 F Date Time Provider Department 07/21/18 4:20 PM JAMESON KAMARA) ANTOINE During your visit today, we recorded the following information about you: Pulse Respiration Blood pressure Weight 62/minute 18/minute 128/62 94.3 kg Jameson Kamara MD 07/22/2018 8:05 AM Signed Chief Complaint Patient presents with: Low Blood Sugar Blister: left big toe HPI Luz Baca is a 77 year old female who presents here today for Above Complaints.. Has had hypoglycemic episodes into the mornings typically between 3-5 am with readings into the 50s with sweating, shaking, nauseous without vomiting. Treats with cookie or glucose tablets and sugars normalize. 3 episodes in total in the last 2-3 weeks. Taking insulin as prescribed and eating regular meals. Noticed blood blister on left great toe about 4 days ago. Contacted office and advised to lotion area and to stop wearing crocs. States she does not have other shoes she can wear and diabetic shoes from Dr. Rodriguez's office were actually surgical boot which caused her to lose her balance. Lesion has become painful and increased in size. Previous lesions have not changed. Has not scheduled f/u appointment with podiatry yet. Past medical history, appointments, medications, allergies reviewed. Previous Medical History PAST MEDICAL HISTORY Diagnosis Date - Arthritis - Atrial fibrillation ([facility]) - CAD (coronary artery disease) stents x9, defibrillator, CABG. Seeing Dr. Cardona - Cardiac defibrillator in place - Cardiomegaly - Carotid artery disease (HCC) left - Chronic hypoxemic respiratory failure ([facility]) 07/01/2018 - Chronic kidney disease (CKD) stage G3b/A2, moderately decreased glomerular filtration rate (GFR) between 30-44 mL/min/1.73 square meter and albuminuria creatinine ratio between 30-299 mg/g ([facility]) Dr. Martin - COPD (chronic obstructive pulmonary disease) ([facility]) Dr. Cruz - Depression - Diabetes ([facility]) - Diabetic neuropathy ([facility]) - Edema - ESRD (end stage renal disease) on dialysis ([facility]) [facility], Dr. Martin - GERD (gastroesophageal reflux disease) - Gout with hyperuricemia - HH (hiatus hernia) - HOCM (hypertrophic obstructive cardiomyopathy) ([facility]) S/P Septal Myectomy in 2003. Now with LVEF 50% and mod/severe pulm HTN. - HTN (hypertension) - Hyperlipidemia - Morbid obesity with BMI of 40.0-44.9, adult ([facility]) - Presence of combination internal cardiac defibrillator (ICD) and pacemaker - Sleep apnea 2011 not on CPAP, unable to tolerate mask 02/2017 - SVT (supraventricular tachycardia) ([facility]) NSVT and questionable VT in 2003 post op Previous Surgical History PAST SURGICAL HISTORY Procedure Laterality Date - CABG (1) VEIN GRAFT AND ARTERIAL GRAFT - CHOLECYSTECTOMY HX - DIALYSIS ACCESS SYSTEM - HEART SURGERY HX 07/18/2004 Septal myectomy and CABG x2 (DEBORAH-LAD, SVG-PDA). - HYSTERECTOMY HX - IANDD PERIANAL ABSCESS - PACEMAKER with defib - PAST SURGICAL HISTORY OF left breast nodule removed - PAST SURGICAL HISTORY OF skin lesions removed - STENT PLACEMENT coronary Family History FAMILY HISTORY Problem Relation Age of Onset - Hypertension Mother living at age 93, HTN - Heart Failure Mother NE - Cancer Father age 71, lung cancer - Heart Attack Sister - COPD Brother - Heart Paternal Grandmother - Heart Paternal Grandfather - Heart Sister - Diabetes Sister - Heart Sister - Breast Cancer Sister - Diabetes Sister - Hypertension Brother - Diabetes Brother Patient Allergies ALLERGIES Allergen Reactions - Aspirin Other: See Comments Patient states that she bled out every orifice, sts not allowed to take it at all. Patient states she was bleeding out of nose and mouth after one dose. - Bactrim [Sulfametho* Other: See Comments My throat swells up. - Latex Rash, Itching Itching and welts. No wheezing or shortness of breath. - Penicillins Rash, Itching Tolerated ceftriaxone during 11/2017 admission and cefepime during 12/2017 admission - Tetracycline Rash, GI Upset Emesis and diarrhea. - Atorvastatin Rash - Codeine Other: See Comments Numbness - Dilaudid [Hydromorp* Mental Status Change - Meperidine - Pentazocine - Pioglitazone Unknown - Propoxyphene Current Medications Current Outpatient Prescriptions on File Prior to Visit: carvedilol (COREG) 3.125 mg tablet Take 1 tablet by mouth twice daily with meals. amiodarone (PACERONE) 200 mg tablet Take 1 tablet by mouth once daily. bacitracin zinc (ANTIBIOTIC, BACITRACIN ZINC,) 500 unit/gram ointment Apply 1 application to affected area twice daily. polyethylene glycol 3350 (MIRALAX) 17 gram/dose powder Use 1-2 times daily as needed for constipation. simvastatin (ZOCOR) 40 mg tablet Take 1 tablet by mouth every morning. isosorbide mononitrate ER (IMDUR) 30 mg 24 hr tablet Take 3 tablets by mouth once daily. pregabalin (LYRICA) 25 mg capsule Take 1 tablet PO daily with an additional 1 tablet PO after dialysis MWF ELIQUIS 5 mg tab(s) TAKE ONE TABLET BY MOUTH TWICE DAILY metoclopramide HCl (REGLAN) 5 mg tablet Take 1 tablet by mouth three times daily. pantoprazole DR (PROTONIX) 40 mg tablet Take 1 tablet by mouth once daily. insulin aspart U-100 (NOVOLOG FLEXPEN U-100 INSULIN) 100 unit/mL inpn Using Sliding Scale: 150-209 1 unit, 210-269 2 units, 270-329 3 units, 330-389 4 units, 390-449 5 units senna (SENNA) 8.6 mg tab Take 8.6 mg by mouth once daily. ondansetron (ZOFRAN) 4 mg tablet Take 4 mg by mouth every 8 hours as needed. ipratropium-albuterol (DUONEB) 0.5 mg-3 mg(2.5 mg base)/3 mL nebu Inhale 3 mL as instructed every 4 hours while awake. And prn for wheezing/shortness of breath. budesonide (PULMICORT) 0.5 mg/2 mL nebulizer solution Use 2 mL via nebulizer once daily. INHALE 2 ML BY NEBULIZER OVER 5-15 MINUTES EVERY 12 HOURS. insulin glargine (LANTUS SOLOSTAR U-100 INSULIN) 100 unit/mL (3 mL) inpn Inject 50 Units subcutaneously every morning. insulin glargine (LANTUS SOLOSTAR U-100 INSULIN) 100 unit/mL (3 mL) inpn Inject 36 Units subcutaneously daily at bedtime. nystatin (NYSTOP) powder Apply 1 application to affected area three times daily. guaiFENesin-dextromethorphan (ROBITUSSIN DM) 100-10 mg/5 mL syrup Take 5-10 mL by mouth every 6 hours as needed for Cough. nitroglycerin sublingual (NITROQUICK) 0.4 mg SL tablet Dissolve 1 tablet under the tongue every 5 minutes as needed. OXYGEN, HOME THERAPY, Inhale 2.5 L/min as instructed continuous. 3 L/min when leaves home. No current facility-administered medications on file prior to visit. Social History Social History Marital status: Spouse name: Years of education: Number of children: Social History Main Topics Smoking status: Former Smoker Packs/day: 2.50 Years: 43.00 Types: Cigarettes Start date: 1961 Quit date: 07/07/2004 Smokeless tobacco: Never Used Alcohol use: No Drug use: No Other Topics Concern Caffeine Concern Yes Comment:coffee 1 cup daily Special Diet No Comment:Regular Exercise No Comment:no unable, due to SOB x several months. Social History Narrative Patient and daughter live together. Review of Symptoms REVIEW OF SYSTEMS GENERAL: No weight loss, malaise or fevers RESPIRATORY: Negative for cough, hemoptysis, wheezing, COPD, dyspnea or shortness of breath CARDIOVASCULAR: Negative for chest pain, leg swelling, hypertension, CHF or palpitations GI: No nausea, vomiting, or diarrhea MUSCULOSKELETAL: Negative for joint pain or swelling, back pain or muscle pain EXAM: BP 128/62 (BP Site: Left Arm, BP Position: Sitting, BP Cuff Size: Regular Adult) Pulse 62 Resp 18 Wt 94.3 kg (208 lb) BMI 31.63 kg/m? General Appearance: Well appearing, alert, in no acute distress, well-hydrated, well nourished.. Skin: 1 cm diameter blood blister over end of left great toe, mild TTP without surrounding erythema or drainage. Lesions on tips of 2nd and 3rd toe show mild improvement from last OV. Crusting over 0.5 cm lesions without drainage or erythema. Lungs: Lungs clear to auscultation. No wheezing, rhonchi, rales. Heart: RRR without murmur, gallop, or rubs. No ectopy. Health Maintenance List INFLUENZA(1) due on 06/18/2018 DAMION/ARB MED PRESCRIBED due on 06/23/2018 STATIN MED ADHERENCE due on 08/18/2018 DIABETES MED ADHERENCE due on 08/18/2018 DILATED RETINAL EXAM due on 10/27/2018 HBA1C due on 11/25/2018 DIABETIC FOOT EXAM due on 01/31/2019 HEMOGLOBIN/HEMATOCRIT due on 05/10/2019 URINE ALBUMIN:CREATININE RATIO due on 05/25/2019 LDL CHOLESTEROL due on 05/25/2019 SERUM CREATININE due on 06/30/2019 COLORECTAL CANCER SCREENING,SEE MODIFIER due on 07/05/2019 ANNUAL PCP TEAM CHRONIC DISEASE VISIT due on 07/05/2019 BP CONTROLLED (<130/80) due on 07/05/2019 DTAP,TDAP,TD(2 - Td) due on 07/05/2028 BONE DENSITY Completed ADULT PREVNAR-13 Completed PNEUMOVAX AGE 65 AND OVER WITH 5YR LOOKBACK Completed ASSESSMENT/PLAN: 1. Hypoglycemia - ICD9: 251.2, ICD10: E16.2 (primary diagnosis) Decrease bedtime dose of Lantus to 32 units from 36 units. Continue to monitor glucose 2-3 times per day. To call with recurrent episodes of hypoglycemia. 2. Uncontrolled type 2 diabetes mellitus with stage 3 chronic kidney disease, with long-term current use of insulin (HCC) - ICD9: 250.52, 585.3, V58.67, ICD10: E11.22, E11.65, N18.3, Z79.4 - INSULIN ASPART U-100 100 UNIT/ML SUBCUTANEOUS PEN 3. Blister of toe of left foot without infection, initial encounter - ICD9: 917.2, ICD10: S90.425A Dressed with gauze in the office. PCC contacted podiatry office for follow up and discussion of alternative diabetic shoes. Again discussed that wearing lose shoes Is causing them to rub on her toes and causing these lesions. Advised of red flag symptoms she should be seen for immediately. Jameson Kamara MD Referring Provider: JAMESON KAMARA) [[id number]] Allergies As of Date: 07/21/2018 Noted Allergy Reaction ASPIRIN 01/20/2018 14 - Other: See Comments Comments: Patient states that she bled out every orifice, sts not allowed to take it at all. Patient states she was bleeding out of nose and mouth after one dose. BACTRIM (SULFAMETHOXAZOLE-TRIMETH*05/17/2017 14 - Other: See Comments Comments: My throat swells up. LATEX 05/17/2017 2 - Rash 9 - Itching Comments: Itching and welts. No wheezing or shortness of breath. PENICILLINS 07/14/2004 2 - Rash 9 - Itching Comments: Tolerated ceftriaxone during 11/2017 admission and cefepime during 12/2017 admission TETRACYCLINE 09/29/2010 2 - Rash 8 - GI Upset Comments: Emesis and diarrhea. ATORVASTATIN 05/17/2017 2 - Rash CODEINE 05/17/2017 14 - Other: See Comments Comments: Numbness DILAUDID (HYDROMORPHONE (BULK)) 05/17/2017 1 - Mental Status Change MEPERIDINE 07/14/2004 PENTAZOCINE 07/14/2004 PIOGLITAZONE 05/17/2017 16 - Unknown PROPOXYPHENE 07/14/2004 Date Reviewed: 07/21/2018 Reviewed by: Luba Marino - Fully Assessed Reason for Visit: Low Blood Sugar [211] Blister [1962] Cmt: left big toe Primary Visit Diagnosis:Hypoglycemia [E16.2] Other Visit Diagnoses:Uncontrolled type 2 diabetes mellitus with stage 3 chronic kidney disease, with long- term current use of insulin (HCC) [E11.22, E11.65, N18.3, Z79.4] Blister of toe of left foot without infection, initial encounter [S90.425A] Order(s):insulin aspart U-100 (NOVOLOG FLEXPEN U-100 INSULIN) 100 unit/mL inpnUsing Sliding Scale: 150-209 1 unit, 210-269 2 units, 270-329 3 units, 330-389 4 units, 390-449 5 unitsDisp: 5 PenRfl: 1 insulin glargine (LANTUS SOLOSTAR U-100 INSULIN) 100 unit/mL (3 mL) inpnInject 50 Units subcutaneously every morning.Disp: 10 PenRfl: 1 insulin glargine (LANTUS SOLOSTAR U-100 INSULIN) 100 unit/mL (3 mL) inpnInject 32 Units subcutaneously daily at bedtime.Disp: Rfl: Prescriptions as of 07/21/2018 Sig: INSULIN ASPART U-100 100 UNI* Using Sliding Scale: 150-209* INSULIN GLARGINE (U-100) 100 * Inject 50 Units subcutaneousl* INSULIN GLARGINE (U-100) 100 * Inject 32 Units subcutaneousl* CARVEDILOL 3.125 MG TABLET Take 1 tablet by mouth twice * AMIODARONE 200 MG TABLET Take 1 tablet by mouth once d* BACITRACIN ZINC 500 UNIT/GRAM* Apply 1 application to affect* POLYETHYLENE GLYCOL 3350 17 G* Use 1-2 times daily as needed* SIMVASTATIN 40 MG TABLET Take 1 tablet by mouth every * ISOSORBIDE MONONITRATE ER 30 * Take 3 tablets by mouth once * PREGABALIN 25 MG CAPSULE Take 1 tablet PO daily with a* ELIQUIS 5 MG TABLET TAKE ONE TABLET BY MOUTH TWIC* METOCLOPRAMIDE 5 MG TABLET Take 1 tablet by mouth three * PANTOPRAZOLE 40 MG TABLET,DEL* Take 1 tablet by mouth once d* SENNOSIDES 8.6 MG TABLET Take 8.6 mg by mouth once carlos* ONDANSETRON HCL 4 MG TABLET Take 4 mg by mouth every 8 ho* IPRATROPIUM-ALBUTEROL 0.5 MG-* Inhale 3 mL as instructed leanne* BUDESONIDE 0.5 MG/2 ML SUSPEN* Use 2 mL via nebulizer once d* NYSTATIN 100,000 UNIT/GRAM TO* Apply 1 application to affect* DEXTROMETHORPHAN-GUAIFENESIN * Take 5-10 mL by mouth every 6* NITROGLYCERIN 0.4 MG SUBLINGU* Dissolve 1 tablet under the t* OXYGEN (HOME THERAPY) Inhale 2.5 L/min as instructe* Problem List As Of Date 07/21/2018 Noted Resolved HOCM (hypertrophic obstructive cardiomyopathy) * 01/23/2018 Priority: I More... SVT (supraventricular tachycardia) (HCC) [I47.1] 01/21/2018 More... Carotid artery disease (HCC) [I77.9] 01/22/2018 CAD (coronary artery disease) [I25.10] Priority: E More... Hypertension [I10] Priority: L More... Hyperlipidemia [E78.5] Pneumonia [J18.9] 10/27/2017 More... COPD (chronic obstructive pulmonary disease) (H* Priority: F More... Sleep apnea [G47.30] Priority: I More... HH (hiatus hernia) [K44.9] 01/21/2018 GERD (gastroesophageal reflux disease) [K21.9] Priority: K More... More... Arthritis [M19.90] Numbness and tingling of right leg [R20.0, R20.* 01/21/2018 Depression [F32.9] Atrial fibrillation (HCC) [I48.91] INVALID FOR* Priority: C More... Uncontrolled type 2 diabetes mellitus with stag*INVALID FOR* Priority: H More... More... More... Heart failure, systolic, acute (HCC) [I50.21] INVALID FOR*01/21/2018 More... Obesity [E66.09] INVALID FOR* Priority: M More... Gout [M10.9] Pacemaker [Z95.0] Priority: D More... Chronic combined systolic and diastolic CHF (co*INVALID FOR* Priority: B More... Elevated troponin [R74.8] INVALID FOR*01/22/2018 Priority: G More... Pulmonary hypertension (HCC) [I27.20] INVALID FOR* Oral thrush [B37.0] INVALID FOR*01/21/2018 Hyponatremia [E87.1] INVALID FOR* Priority: J More... Hyperkalemia [E87.5] INVALID FOR*01/22/2018 Priority: J Chest pain in adult [R07.9] INVALID FOR*02/12/2018 Priority: A More... Acute renal failure superimposed on stage 3 chr*INVALID FOR* Priority: A More... Obesity, Class II, BMI 35-39.9 [E66.9] INVALID FOR* ESRD on dialysis (HCC) [N18.6, Z99.2] INVALID FOR* More... Chronic hypoxemic respiratory failure (HCC) [J9*INVALID FOR* Prescriptions ordered this encounter Disp Refills Start End INSULIN ASPART U-100 100 UNIT/ML FRAZIER* 5 Pen 1 07/21/2018 Sig: Using Sliding Scale: 150-209 1 unit, 210-269 2 units, 270-329 3 units, 330-389 4 units, 390-449 5 units INSULIN GLARGINE (U-100) 100 UNIT/ML* 10 P* 1 07/21/2018 Route: SUBCUTANEOUS Sig: Inject 50 Units subcutaneously every morning. INSULIN GLARGINE (U-100) 100 UNIT/ML* 07/21/2018 Class: Med Update Route: SUBCUTANEOUS Sig: Inject 32 Units subcutaneously daily at bedtime. Medications Discontinued During This Encounter insulin aspart U-100 (NOVOLOG FLEXPE* 05/17/2018 07/21/2018 Class: Med Update Sig: Using Sliding Scale: 150-209 1 unit, 210-269 2 units, 270-329 3 units, 330-389 4 units, 390-449 5 units Disc: Reason for discontinue is not on file. insulin glargine (LANTUS SOLOSTAR U-* 07/21/2018 Class: Historical Med Route: SUBCUTANEOUS Sig: Inject 50 Units subcutaneously every morning. Disc: Reason for discontinue is not on file. insulin glargine (LANTUS SOLOSTAR U-* 07/21/2018 Class: Historical Med Route: SUBCUTANEOUS Sig: Inject 36 Units subcutaneously daily at bedtime. Disc: Reason for discontinue is not on file. Encounter Status:Closed by JAMESON KAMARA MD on 07/22/18 PROGRESS Observed: 07/21/2018 Status: COMPLETED Source: [place] 12:30 PM [facility] REPOSITORY HNO ID: [id number] Author: Remi (Allyson) Brent Service: (none) Author Type: Registered Nurse Type: Progress Notes Filed: 07/21/2018 2:23 PM Note Text: PRIMARY CARE COORDINATION FOLLOW-UP NOTE Provider Action/FYI Appt today Patient having low BS, can't read BS from meter Will bring meter Patient identified by name and date of . YES Spoke to patient Summary: States blood blister is still intact. Asked if she is wearing crocs instead her diabetic shoes, states yes, because her diabetic shoes rub her feet worse than her crocs. Reports SOB only when walking to car with oxygen, normal resp resume after 15 minutes rest. Chest pain is less frequent. Still rates 10/10 when she is hit with chest pain and it's so bad it makes me sick States BP this morning was 110/56, continues to be low but no dizziness BS this morning was 88 and shortly ago 119. States her BS has bottomed out several times this week and she gets very sweaty and shaky. Asked to give BS to PCC, states it's in her meter and she doesn't know how to read it. Taking Lantus 50 units in AM and 36 units at bedtime Watermelon Inspector plan for next outreach: Will follow up one week Signature Remi Kennedy RN July 21, 2018 ELÍASTOUTREACH Observed: 07/21/2018 Status: COMPLETED Source: [place] 12:00 AM [facility] REPOSITORY Patient Outreach (FAMPWS) BACALUZ ([id number]) 1940 F Date Time Provider Department 07/21/18 REMI KENNEDY (RN) [facility] During your visit today, we recorded the following information about you: Remi Kennedy RN 07/21/2018 2:23 PM Signed PRIMARY CARE COORDINATION FOLLOW-UP NOTE Provider Action/FYI Appt today Patient having low BS, can't read BS from meter Will bring meter Patient identified by name and date of . YES Spoke to patient Summary: States blood blister is still intact. Asked if she is wearing crocs instead her diabetic shoes, states yes, because her diabetic shoes rub her feet worse than her crocs. Reports SOB only when walking to car with oxygen, normal resp resume after 15 minutes rest. Chest pain is less frequent. Still rates 10/10 when she is hit with chest pain and it's so bad it makes me sick States BP this morning was 110/56, continues to be low but no dizziness BS this morning was 88 and shortly ago 119. States her BS has bottomed out several times this week and she gets very sweaty and shaky. Asked to give BS to PCC, states it's in her meter and she doesn't know how to read it. Taking Lantus 50 units in AM and 36 units at bedtime Watermelon Inspector plan for next outreach: Will follow up one week Signature Remi Kennedy RN July 21, 2018 Allergies As of Date: 07/21/2018 Noted Allergy Reaction ASPIRIN 01/20/2018 14 - Other: See Comments Comments: Patient states that she bled out every orifice, sts not allowed to take it at all. Patient states she was bleeding out of nose and mouth after one dose. BACTRIM (SULFAMETHOXAZOLE-TRIMETH*05/17/2017 14 - Other: See Comments Comments: My throat swells up. LATEX 05/17/2017 2 - Rash 9 - Itching Comments: Itching and welts. No wheezing or shortness of breath. PENICILLINS 07/14/2004 2 - Rash 9 - Itching Comments: Tolerated ceftriaxone during 11/2017 admission and cefepime during 12/2017 admission TETRACYCLINE 09/29/2010 2 - Rash 8 - GI Upset Comments: Emesis and diarrhea. 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] Prescriptions as of 07/21/2018 Sig: CARVEDILOL 3.125 MG TABLET Take 1 tablet by mouth twice * AMIODARONE 200 MG TABLET Take 1 tablet by mouth once d* BACITRACIN ZINC 500 UNIT/GRAM* Apply 1 application to affect* POLYETHYLENE GLYCOL 3350 17 G* Use 1-2 times daily as needed* SIMVASTATIN 40 MG TABLET Take 1 tablet by mouth every * ISOSORBIDE MONONITRATE ER 30 * Take 3 tablets by mouth once * PREGABALIN 25 MG CAPSULE Take 1 tablet PO daily with a* ELIQUIS 5 MG TABLET TAKE ONE TABLET BY MOUTH TWIC* METOCLOPRAMIDE 5 MG TABLET Take 1 tablet by mouth three * PANTOPRAZOLE 40 MG TABLET,DEL* Take 1 tablet by mouth once d* INSULIN ASPART U-100 100 UNI* Using Sliding Scale: 150-209* SENNOSIDES 8.6 MG TABLET Take 8.6 mg by mouth once carlos* ONDANSETRON HCL 4 MG TABLET Take 4 mg by mouth every 8 ho* IPRATROPIUM-ALBUTEROL 0.5 MG-* Inhale 3 mL as instructed leanne* BUDESONIDE 0.5 MG/2 ML SUSPEN* Use 2 mL via nebulizer once d* INSULIN GLARGINE (U-100) 100 * Inject 50 Units subcutaneousl* INSULIN GLARGINE (U-100) 100 * Inject 36 Units subcutaneousl* NYSTATIN 100,000 UNIT/GRAM TO* Apply 1 application to affect* DEXTROMETHORPHAN-GUAIFENESIN * Take 5-10 mL by mouth every 6* NITROGLYCERIN 0.4 MG SUBLINGU* Dissolve 1 tablet under the t* OXYGEN (HOME THERAPY) Inhale 2.5 L/min as instructe* Problem List As Of Date 07/21/2018 Noted Resolved HOCM (hypertrophic obstructive cardiomyopathy) * 01/23/2018 Priority: I More... SVT (supraventricular tachycardia) (HCC) [I47.1] 01/21/2018 More... Carotid artery disease (HCC) [I77.9] 01/22/2018 CAD (coronary artery disease) [I25.10] Priority: E More... Hypertension [I10] Priority: L More... Hyperlipidemia [E78.5] Pneumonia [J18.9] 10/27/2017 More... COPD (chronic obstructive pulmonary disease) (H* Priority: F More... Sleep apnea [G47.30] Priority: I More... HH (hiatus hernia) [K44.9] 01/21/2018 GERD (gastroesophageal reflux disease) [K21.9] Priority: K More... More... Arthritis [M19.90] Numbness and tingling of right leg [R20.0, R20.* 01/21/2018 Depression [F32.9] Atrial fibrillation (HCC) [I48.91] INVALID FOR* Priority: C More... Uncontrolled type 2 diabetes mellitus with stag*INVALID FOR* Priority: H More... More... More... Heart failure, systolic, acute (HCC) [I50.21] INVALID FOR*01/21/2018 More... Obesity [E66.09] INVALID FOR* Priority: M More... Gout [M10.9] Pacemaker [Z95.0] Priority: D More... Chronic combined systolic and diastolic CHF (co*INVALID FOR* Priority: B More... Elevated troponin [R74.8] INVALID FOR*01/22/2018 Priority: G More... Pulmonary hypertension (HCC) [I27.20] INVALID FOR* Oral thrush [B37.0] INVALID FOR*01/21/2018 Hyponatremia [E87.1] INVALID FOR* Priority: J More... Hyperkalemia [E87.5] INVALID FOR*01/22/2018 Priority: J Chest pain in adult [R07.9] INVALID FOR*02/12/2018 Priority: A More... Acute renal failure superimposed on stage 3 chr*INVALID FOR* Priority: A More... Obesity, Class II, BMI 35-39.9 [E66.9] INVALID FOR* ESRD on dialysis (HCC) [N18.6, Z99.2] INVALID FOR* More... Chronic hypoxemic respiratory failure (HCC) [J9*INVALID FOR* Encounter Status:Closed by REMI KENNEDY on 07/21/18 LUDA Observed: 07/21/2018 Status: COMPLETED Source: [place] 12:00 AM [facility] REPOSITORY Patient Outreach (FAMPWS) LUZ BACA ([id number]) 1940 F Date Time Provider Department 07/21/18 REMI KENNEDY (RN) FAMPWS During your visit today, we recorded the following information about you: Remi Kennedy RN 07/21/2018 5:24 PM Signed PRIMARY CARE COORDINATION IN OFFICE VISIT WITH PCP Patient has been identified by name and date of . PCP Assessment/Plan: Reviewed PCP plan with patient using [employer] Discussed Diabetic Shoes and pt can take them back to [employer] for them to fix or order new ones. Pt's daughter became upset and stated they knew the shoes didn't fit well when pt picked them up. Pt could hardly get them on when they tried them on in store. PCC Plan of Care: Patient concerns: Concerned about diabetic shoes that don't fit. States crocs are the only shoes she can get on. PCC Interventions: TC to Lillian, nurse of Dr. Rodriguez, informed pt has blood blister on end of toe and PCP wants pt seen. Appt made for next Wednesday at 11:25. Discussed ill fitting diabetic shoes and PCP wants Dr. Rodriguez to get pt shoes that fit well so pt doesn't wear crocs. States pt can go back to [facility] and they should fix them or give her a new pair. Next Office Visit: 10/06/2018 Plan For Next Call: One week Remi Kennedy RN July 21, 2018 Allergies As of Date: 07/21/2018 Noted Allergy Reaction ASPIRIN 01/20/2018 14 - Other: See Comments Comments: Patient states that she bled out every orifice, sts not allowed to take it at all. Patient states she was bleeding out of nose and mouth after one dose. BACTRIM (SULFAMETHOXAZOLE-TRIMETH*05/17/2017 14 - Other: See Comments Comments: My throat swells up. LATEX 05/17/2017 2 - Rash 9 - Itching Comments: Itching and welts. No wheezing or shortness of breath. PENICILLINS 07/14/2004 2 - Rash 9 - Itching Comments: Tolerated ceftriaxone during 11/2017 admission and cefepime during 12/2017 admission TETRACYCLINE 09/29/2010 2 - Rash 8 - GI Upset Comments: Emesis and diarrhea. 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] Prescriptions as of 07/21/2018 Sig: INSULIN ASPART U-100 100 UNI* Using Sliding Scale: 150-209* INSULIN GLARGINE (U-100) 100 * Inject 50 Units subcutaneousl* INSULIN GLARGINE (U-100) 100 * Inject 32 Units subcutaneousl* CARVEDILOL 3.125 MG TABLET Take 1 tablet by mouth twice * AMIODARONE 200 MG TABLET Take 1 tablet by mouth once d* BACITRACIN ZINC 500 UNIT/GRAM* Apply 1 application to affect* POLYETHYLENE GLYCOL 3350 17 G* Use 1-2 times daily as needed* SIMVASTATIN 40 MG TABLET Take 1 tablet by mouth every * ISOSORBIDE MONONITRATE ER 30 * Take 3 tablets by mouth once * PREGABALIN 25 MG CAPSULE Take 1 tablet PO daily with a* ELIQUIS 5 MG TABLET TAKE ONE TABLET BY MOUTH TWIC* METOCLOPRAMIDE 5 MG TABLET Take 1 tablet by mouth three * PANTOPRAZOLE 40 MG TABLET,DEL* Take 1 tablet by mouth once d* SENNOSIDES 8.6 MG TABLET Take 8.6 mg by mouth once carlos* ONDANSETRON HCL 4 MG TABLET Take 4 mg by mouth every 8 ho* IPRATROPIUM-ALBUTEROL 0.5 MG-* Inhale 3 mL as instructed leanne* BUDESONIDE 0.5 MG/2 ML SUSPEN* Use 2 mL via nebulizer once d* NYSTATIN 100,000 UNIT/GRAM TO* Apply 1 application to affect* DEXTROMETHORPHAN-GUAIFENESIN * Take 5-10 mL by mouth every 6* NITROGLYCERIN 0.4 MG SUBLINGU* Dissolve 1 tablet under the t* OXYGEN (HOME THERAPY) Inhale 2.5 L/min as instructe* Problem List As Of Date 07/21/2018 Noted Resolved HOCM (hypertrophic obstructive cardiomyopathy) * 01/23/2018 Priority: I More... SVT (supraventricular tachycardia) (HCC) [I47.1] 01/21/2018 More... Carotid artery disease (HCC) [I77.9] 01/22/2018 CAD (coronary artery disease) [I25.10] Priority: E More... Hypertension [I10] Priority: L More... Hyperlipidemia [E78.5] Pneumonia [J18.9] 10/27/2017 More... COPD (chronic obstructive pulmonary disease) (H* Priority: F More... Sleep apnea [G47.30] Priority: I More... HH (hiatus hernia) [K44.9] 01/21/2018 GERD (gastroesophageal reflux disease) [K21.9] Priority: K More... More... Arthritis [M19.90] Numbness and tingling of right leg [R20.0, R20.* 01/21/2018 Depression [F32.9] Atrial fibrillation (HCC) [I48.91] INVALID FOR* Priority: C More... Uncontrolled type 2 diabetes mellitus with stag*INVALID FOR* Priority: H More... More... More... Heart failure, systolic, acute (HCC) [I50.21] INVALID FOR*01/21/2018 More... Obesity [E66.09] INVALID FOR* Priority: M More... Gout [M10.9] Pacemaker [Z95.0] Priority: D More... Chronic combined systolic and diastolic CHF (co*INVALID FOR* Priority: B More... Elevated troponin [R74.8] INVALID FOR*01/22/2018 Priority: G More... Pulmonary hypertension (HCC) [I27.20] INVALID FOR* Oral thrush [B37.0] INVALID FOR*01/21/2018 Hyponatremia [E87.1] INVALID FOR* Priority: J More... Hyperkalemia [E87.5] INVALID FOR*01/22/2018 Priority: J Chest pain in adult [R07.9] INVALID FOR*02/12/2018 Priority: A More... Acute renal failure superimposed on stage 3 chr*INVALID FOR* Priority: A More... Obesity, Class II, BMI 35-39.9 [E66.9] INVALID FOR* ESRD on dialysis (HCC) [N18.6, Z99.2] INVALID FOR* More... Chronic hypoxemic respiratory failure (HCC) [J9*INVALID FOR* Encounter Status:Closed by REMI KENNEDY on 07/21/18 BD DXA - FOREARM Observed: 07/20/2018 Status: F Source: [place] 9:53 AM [facility] REPOSITORY * * *Final Report* * * DATE OF EXAM: Jul 20 2018 9:53AM [facility] 0870 - BD DXA - FOREARM SKELETON / PROCEDURE REASON: Asymptomatic menopausal state * * * * Physician Interpretation * * * * BONE DENSITY - 07/20/2018 9:53 AM HISTORY: INDICATIONS / RISK FACTORS / DEMOGRAPHICS: Asymptomatic menopausal state No prv. Postmenopausal, hysterectomy, Chronic Kidney Disease, COPD, GERD, hyptertension, diabetes, hyperlipidemia, arthritis, depression, Gout. TECHNIQUE: Lumbar spine and both hips evaluated COMPARISON: None STUDY LIMITATIONS: None RESULT: LUMBAR SPINE: BMD = 1.134 g/cm2, which is 0.8 SDs (T-Score) for mean peak bone mass of young normals 3.3 SDs (Z-Score) for mean peak bone mass matched for age, sex, weight, ethnicity LEFT TOTAL HIP: BMD = 1.032 g/cm2, which is 0.7 SDs (T-Score) for mean peak bone mass of young normals 2.6 SDs (Z-Score) for mean peak bone mass matched for age, sex, weight, ethnicity LEFT FEMORAL NECK: BMD = 0.67 g/cm2, which is -1.6 SDs (T-Score) for mean peak bone mass of young normals 0.5 SDs (Z-Score) for mean peak bone mass matched for age, sex, weight, ethnicity RIGHT TOTAL HIP: BMD = 1.004 g/cm2, which is 0.5 SDs (T-Score) for mean peak bone mass of young normals 2.4 SDs (Z-Score) for mean peak bone mass matched for age, sex, weight, ethnicity RIGHT FEMORAL NECK: BMD = 0.644 g/cm2, which is -1.8 SDs (T-Score) for mean peak bone mass of young normals 0.3 SDs (Z-Score) for mean peak bone mass matched for age, sex, weight, ethnicity 10-year Fracture Risk (FRAX): Major osteoporotic fracture risk 12% Hip fracture risk 2.8% IMPRESSION: The patient's T- scores meet the World Health Organization classification for osteopenia in the bilateral femoral necks. This patient may have an increased risk of insufficiency fracture. Recommendation: Follow up study in 2 to 4 years WORLD HEALTH ORG. CLASSIFICATION OF BONE MASS CLASSIFICATION T-SCORE Normal Greater than or equal to -1 Low Bone Mass Between -1 and -2.5 (Osteopenia) Osteoporosis Less than or equal to -2.5 Service Delivery Supervisor: SALINAS Transcribe Date/Time: Jul 20 2018 1:17P Dictated by : ELLA FRY DO This examination was interpreted and the report reviewed and electronically signed by: ELLA FRY DO on Jul 23 2018 2:40PM EST [id number] BD DXA - AXIAL Observed: 07/20/2018 Status: F Source: [place] 9:53 AM [facility] REPOSITORY * * *Final Report* * * DATE OF EXAM: Jul 20 2018 9:53AM [facility] 0804 - BD DXA - AXIAL SKELETON B / PROCEDURE REASON: Asymptomatic menopausal state * * * * Physician Interpretation * * * * BONE DENSITY - 07/20/2018 9:53 AM HISTORY: INDICATIONS / RISK FACTORS / DEMOGRAPHICS: Asymptomatic menopausal state No prv. Postmenopausal, hysterectomy, Chronic Kidney Disease, COPD, GERD, hyptertension, diabetes, hyperlipidemia, arthritis, depression, Gout. TECHNIQUE: Lumbar spine and both hips evaluated COMPARISON: None STUDY LIMITATIONS: None RESULT: LUMBAR SPINE: BMD = 1.134 g/cm2, which is 0.8 SDs (T-Score) for mean peak bone mass of young normals 3.3 SDs (Z-Score) for mean peak bone mass matched for age, sex, weight, ethnicity LEFT TOTAL HIP: BMD = 1.032 g/cm2, which is 0.7 SDs (T-Score) for mean peak bone mass of young normals 2.6 SDs (Z-Score) for mean peak bone mass matched for age, sex, weight, ethnicity LEFT FEMORAL NECK: BMD = 0.67 g/cm2, which is -1.6 SDs (T-Score) for mean peak bone mass of young normals 0.5 SDs (Z-Score) for mean peak bone mass matched for age, sex, weight, ethnicity RIGHT TOTAL HIP: BMD = 1.004 g/cm2, which is 0.5 SDs (T-Score) for mean peak bone mass of young normals 2.4 SDs (Z-Score) for mean peak bone mass matched for age, sex, weight, ethnicity RIGHT FEMORAL NECK: BMD = 0.644 g/cm2, which is -1.8 SDs (T-Score) for mean peak bone mass of young normals 0.3 SDs (Z-Score) for mean peak bone mass matched for age, sex, weight, ethnicity 10-year Fracture Risk (FRAX): Major osteoporotic fracture risk 12% Hip fracture risk 2.8% IMPRESSION: The patient's T- scores meet the World Health Organization classification for osteopenia in the bilateral femoral necks. This patient may have an increased risk of insufficiency fracture. Recommendation: Follow up study in 2 to 4 years WORLD HEALTH ORG. CLASSIFICATION OF BONE MASS CLASSIFICATION T-SCORE Normal Greater than or equal to -1 Low Bone Mass Between -1 and -2.5 (Osteopenia) Osteoporosis Less than or equal to -2.5 Service Delivery Supervisor: SALINAS Transcribe Date/Time: Jul 20 2018 1:17P Dictated by : ELLA FRY DO This examination was interpreted and the report reviewed and electronically signed by: ELLA FRY DO on Jul 23 2018 2:40PM EST [id number] PROGRESS Observed: 07/20/2018 Status: COMPLETED Source: [place] 9:22 AM [facility] REPOSITORY HNO ID: [id number] Author: River Og) Guadalupe Woodard Service: (none) Author Type: Warehouse Material Handler Type: Progress Notes Filed: 07/20/2018 9:40 AM Note Text: Radiology Service Progress Note PATIENT NAME: Luz Baca DATE OF SERVICE: July 20, 2018 TIME: 9:22 AM PATIENT IDENTITY VERIFICATION COMPLETED USING TWO (2) METHODS: Patient confirmed name verbally and Date of . PATIENT GENDER DATA: Female. status: : No status: NO. PATIENT RELEVANT IMPLANT DATA REVIEWED: Not Applicable RADIOLOGY DEPARTMENT: [facility] bone density PERIPHERAL IV DATA: Not applicable SIGNED BY: RT Willow July 20, 2018 9:22 AM PROGRESS Observed: 07/18/2018 Status: COMPLETED Source: [place] 10:45 AM [facility] REPOSITORY HNO ID: [id number] Author: Jameson Adams) Koffi Service: (none) Author Type: Physician Type: Progress Notes Filed: 07/18/2018 10:45 AM Note Text: Reviewed. PROGRESS Observed: 07/15/2018 Status: COMPLETED Source: [place] 10:04 AM [facility] REPOSITORY HNO ID: [id number] Author: Remi Briseno) Brent Service: (none) Author Type: Registered Nurse Type: Progress Notes Filed: 07/15/2018 4:52 PM Note Text: PRIMARY CARE COORDINATION FOLLOW-UP NOTE Provider Action/FYI TC to Bette at [facility] left message for nurse regarding all information below with PCP and Anahi at [facility]. Patient identified by name and date of . YES Spoke to Anahi VALADEZ at [facility] and Bette at [facility] Summary: TC from ALLYSON Christian at [facility] states pt's BP has been low ever since her Imdur was increased. [facility] RN spoke to Dr. Ervin, Jailer Chief at [facility] and he recommended decreasing Imdur but RN told MD cardiology can't decrease Imdur because of pt's unstable angina. RN at [facility] cannot take off any less fluid or patient has fluid overload. RN has been doing quite a bit of instruction on pt's fluid restriction. Since patient is following fluid restriction more at home she is having less weight gain between dialysis sessions and RN doesn't have to take as much fluid off at dialysis. TC to [facility], left message for nurse to call PCC regarding low BP and fluid amt removed during dialysis. Received fax from [facility] stating pt reports low BP, no dizziness or falls. RN left message with dialysis regarding clarification of fluid restriction. BP ranged 104/56 to 136/54. Highest diastolic was 70. Asking if PCP would like to make changes to medications or orders? Watermelon Inspector plan for next outreach: Will follow up 2 weeks Signature Remi Kennedy RN July 15, 2018 ELÍASTOUTRMASSIMOCH Observed: 07/15/2018 Status: COMPLETED Source: [place] 12:00 AM [facility] REPOSITORY Patient Outreach (FAMPWS) LUZ BACA ([id number]) 1940 F Date Time Provider Department 07/15/18 [facility]ENNEDY (RN) [facility] During your visit today, we recorded the following information about you: Remi Kennedy RN 07/15/2018 4:52 PM Signed PRIMARY CARE COORDINATION FOLLOW-UP NOTE Provider Action/FYI TC to Bette at [facility] left message for nurse regarding all information below with PCP and Anahi at [facility]. Patient identified by name and date of . YES Spoke to Anahi VALADEZ at [facility] and Bette at [facility] Summary: TC from ALLYSON Christian at [facility] states pt's BP has been low ever since her Imdur was increased. [facility] RN spoke to Dr. Ervin, Jailer Chief at [facility] and he recommended decreasing Imdur but RN told cardiology can't decrease Imdur because of pt's unstable angina. RN at [facility] cannot take off any less fluid or patient has fluid overload. RN has been doing quite a bit of instruction on pt's fluid restriction. Since patient is following fluid restriction more at home she is having less weight gain between dialysis sessions and RN doesn't have to take as much fluid off at dialysis. TC to [facility], left message for nurse to call PCC regarding low BP and fluid amt removed during dialysis. Received fax from [facility] stating pt reports low BP, no dizziness or falls. RN left message with dialysis regarding clarification of fluid restriction. BP ranged 104/56 to 136/54. Highest diastolic was 70. Asking if PCP would like to make changes to medications or orders? Watermelon Inspector plan for next outreach: Will follow up 2 weeks Signature Remi Kennedy RN July 15, 2018 Allergies As of Date: 07/15/2018 Noted Allergy Reaction ASPIRIN 01/20/2018 14 - Other: See Comments Comments: Patient states that she bled out every orifice, sts not allowed to take it at all. Patient states she was bleeding out of nose and mouth after one dose. BACTRIM (SULFAMETHOXAZOLE-TRIMETH*05/17/2017 14 - Other: See Comments Comments: My throat swells up. LATEX 05/17/2017 2 - Rash 9 - Itching Comments: Itching and welts. No wheezing or shortness of breath. PENICILLINS 07/14/2004 2 - Rash 9 - Itching Comments: Tolerated ceftriaxone during 11/2017 admission and cefepime during 12/2017 admission TETRACYCLINE 09/29/2010 2 - Rash 8 - GI Upset Comments: Emesis and diarrhea. 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] Prescriptions as of 07/15/2018 Sig: CARVEDILOL 3.125 MG TABLET Take 1 tablet by mouth twice * AMIODARONE 200 MG TABLET Take 1 tablet by mouth once d* HYDROCODONE 5 MG-ACETAMINOPHE* Take 1 tablet by mouth every * BACITRACIN ZINC 500 UNIT/GRAM* Apply 1 application to affect* POLYETHYLENE GLYCOL 3350 17 G* Use 1-2 times daily as needed* SIMVASTATIN 40 MG TABLET Take 1 tablet by mouth every * ISOSORBIDE MONONITRATE ER 30 * Take 3 tablets by mouth once * PREGABALIN 25 MG CAPSULE Take 1 tablet PO daily with a* ELIQUIS 5 MG TABLET TAKE ONE TABLET BY MOUTH TWIC* METOCLOPRAMIDE 5 MG TABLET Take 1 tablet by mouth three * PANTOPRAZOLE 40 MG TABLET,DEL* Take 1 tablet by mouth once d* INSULIN ASPART U-100 100 UNI* Using Sliding Scale: 150-209* SENNOSIDES 8.6 MG TABLET Take 8.6 mg by mouth once carlos* ONDANSETRON HCL 4 MG TABLET Take 4 mg by mouth every 8 ho* IPRATROPIUM-ALBUTEROL 0.5 MG-* Inhale 3 mL as instructed leanne* BUDESONIDE 0.5 MG/2 ML SUSPEN* Use 2 mL via nebulizer once d* INSULIN GLARGINE (U-100) 100 * Inject 50 Units subcutaneousl* INSULIN GLARGINE (U-100) 100 * Inject 36 Units subcutaneousl* NYSTATIN 100,000 UNIT/GRAM TO* Apply 1 application to affect* DEXTROMETHORPHAN-GUAIFENESIN * Take 5-10 mL by mouth every 6* NITROGLYCERIN 0.4 MG SUBLINGU* Dissolve 1 tablet under the t* OXYGEN (HOME THERAPY) Inhale 2.5 L/min as instructe* Problem List As Of Date 07/15/2018 Noted Resolved HOCM (hypertrophic obstructive cardiomyopathy) * 01/23/2018 Priority: I More... SVT (supraventricular tachycardia) ([facility]) [I47.1] 01/21/2018 More... Carotid artery disease (HCC) [I77.9] 01/22/2018 CAD (coronary artery disease) [I25.10] Priority: E More... Hypertension [I10] Priority: L More... Hyperlipidemia [E78.5] Pneumonia [J18.9] 10/27/2017 More... COPD (chronic obstructive pulmonary disease) (H* Priority: F More... Sleep apnea [G47.30] Priority: I More... HH (hiatus hernia) [K44.9] 01/21/2018 GERD (gastroesophageal reflux disease) [K21.9] Priority: K More... More... Arthritis [M19.90] Numbness and tingling of right leg [R20.0, R20.* 01/21/2018 Depression [F32.9] Atrial fibrillation (HCC) [I48.91] INVALID FOR* Priority: C More... Uncontrolled type 2 diabetes mellitus with stag*INVALID FOR* Priority: H More... More... More... Heart failure, systolic, acute (HCC) [I50.21] INVALID FOR*01/21/2018 More... Obesity [E66.09] INVALID FOR* Priority: M More... Gout [M10.9] Pacemaker [Z95.0] Priority: D More... Chronic combined systolic and diastolic CHF (co*INVALID FOR* Priority: B More... Elevated troponin [R74.8] INVALID FOR*01/22/2018 Priority: G More... Pulmonary hypertension (HCC) [I27.20] INVALID FOR* Oral thrush [B37.0] INVALID FOR*01/21/2018 Hyponatremia [E87.1] INVALID FOR* Priority: J More... Hyperkalemia [E87.5] INVALID FOR*01/22/2018 Priority: J Chest pain in adult [R07.9] INVALID FOR*02/12/2018 Priority: A More... Acute renal failure superimposed on stage 3 chr*INVALID FOR* Priority: A More... Obesity, Class II, BMI 35-39.9 [E66.9] INVALID FOR* ESRD on dialysis (HCC) [N18.6, Z99.2] INVALID FOR* More... Chronic hypoxemic respiratory failure (HCC) [J9*INVALID FOR* Encounter Status:Closed by REMI KENNEDY on 07/15/18 PT ED Observed: 07/12/2018 Status: COMPLETED Source: [place] 5:28 PM CLINIC OTHER CAMPUS REPOSITORY O ID: [id number] Author: Aleisha (Rn) ALLYSON Eaton Service: Nursing Author Type: Registered Nurse Type: Patient Education Filed: 07/12/2018 6:25 PM Note Text: POST OP LEARNING RESPONSE INSTRUCTION PROVIDED TO: pt and family METHOD OF INSTRUCTION: Individual instruction Written instruction - handouts Verbal instruction PATIENT / FAMILY RESPONSE: Information received as demonstrated by interest and questions FOLLOW-UP PLAN: Patient instructed to call with any further issues SUPPLEMENTAL MATERIAL: Post op discharge instructions REFERRAL (RECOMMENDATION): None Electronically Signed By: Aleisha Eaton RN In Department: [facility] SURGERY ANES POST Observed: 07/12/2018 Status: COMPLETED Source: [place] 4:21 PM [facility] OTHER [place] REPOSITORY HNO ID: [id number] Author: Basim Perdomo MD Service: Anesthesiology Author Type: Anesthesiologist Type: Anesthesia PostOp Filed: 07/12/2018 4:21 PM Note Text: POST ANESTHESIA EVALUATION NOTE SERVICE DATE: 07/12/2018 SERVICE TIME: 1620 : 1941 Vitals: 07/12/18 1046 07/12/18 1542 Temp: 36.2 ?C (97.2 ?F) 36.3 ?C (97.3 ?F) 07/12/18 1046 07/12/18 1542 07/12/18 1600 07/12/18 1615 BP: 106/71 107/66 107/66 97/52 07/12/18 1046 07/12/18 1542 07/12/18 1600 07/12/18 1615 Pulse: (!) 56 65 64 65 07/12/18 1046 07/12/18 1542 07/12/18 1600 07/12/18 1615 Resp: 16 16 18 18 07/12/18 1046 07/12/18 1542 07/12/18 1600 07/12/18 1615 SpO2: 94% 100% 99% 95% Validated Vital Signs: Yes POST ANES STATUS: No apparent anesthetic complications. The patient is appropriately hydrated with stable respiratory and cardiovascular status. Patient has safe and adequate airway control. The patient has appropriate pain relief and no significant post operative nausea or vomiting. The patient has achieved baseline mental status. Intra-Operative Events: No Significant Anesthesia Events Further assessment by Anesthesia Service: None Other Remarks: SIGNATURE: Basim Perdomo MD PATIENT NAME: Luz Baca DATE: July 12, 2018 TIME: 4:21 PM PAGER/CONTACT #: [email or web address] PROG Observed: 07/12/2018 Status: COMPLETED Source: [place] 4:05 PM [facility] REPOSITORY HNO ID: [id number] Author: Aleisha Briseno) ALLYSON Eaton Service: Nursing Author Type: Registered Nurse Type: Nursing Progress Note Filed: 07/12/2018 6:29 PM Note Text: Nursing Progress Note Patient Name: Luz Baca Patient Location: [facility] 1542 Pt received in PACU on cart from OR. CR monitor applied and strip obtained. + thrill and bruit to right upper arm fistula. Pt denies pain. This note was completed by: Aleisha Eaton, RN [id number] Pt given orange juice for FSBS 70. Pt states she is OK, but if sugar drops too much more, not good for her. 1628 Pt denies c/o. Placed into phase 2 care. 1715 IV removed. Site without redness or swelling. Pressure dressing applied per pt request due to history of bleeding. Homegoing instructions given. Pt verbalizes understanding. 1728 Pt discharged to home via wheelchair to car accomp by staff and family in stable cond. BRIEF OP NOT Observed: 07/12/2018 Status: COMPLETED Source: [place] 3:49 PM CLINIC OTHER CAMPUS REPOSITORY O ID: [id number] Author: Michael Hogan Service: Vascular Surgery Author Type: Physician Type: Brief Op Note Filed: 07/12/2018 3:50 PM Note Text: BRIEF OP NOTE LOG ID: [id number] Surgery/Procedure Date: 07/12/2018 Incision/Procedure Start Time: 1:22 PM Incision Close/Procedure End Time: 3:24 PM Surgeon(s)/Proceduralist(s) and Transport Driver(s): Surgeon(s) and Role: * Michael Hogan - Primary Pat Scott Procedure(s): Creation of right upper extremity brachiocephalic arteriovenous fistula Anesthesia: General Findings: cephalic vein 3mm in diameter Estimated Blood Loss: minimal Specimens: none Complications: None Pre-Op/Pre-Procedure Diagnosis: ESRD on dialysis Post-Op/Post-Procedure Diagnosis: ESRD on dialysis SIGNATURE: Michael Hogan DO PATIENT NAME: Luz Baca DATE: July 12, 2018 TIME: 3:49 PM PAGER/CONTACT #: [id number] NURSING PROG Observed: 07/12/2018 Status: COMPLETED Source: [place] 11:37 AM [facility] REPOSITORY HNO ID: [id number] Author: Octavia OsheaRn) ALLYSON Lovell Service: Nursing Author Type: Registered Nurse Type: Nursing Progress Note Filed: 07/12/2018 12:19 PM Note Text: 1130 Dr perdomo updated on fsbs of 70 Pt awake, alert and oriented without complaints Skin warm and dry 1135 Dextrose 50% 25ml iv Family at bedside 1210 fsbs 104 POTASSIUM Collected: 07/12/2018 Status: F Source: [place] 11:07 AM [facility] REPOSITORY TYPE CODE TESTS RESULT OUT OF REFERENCE UNITS RANGE LAB K 3.7-5.1 mmol/L High Potassium 5.3 Result Comment: Results may be falsely increased due to interference by hemolysis. Suggest reorder as clinically indicated. Performed By: #### K1 #### [facility] [address] [facility] [phone] PT ED Observed: 07/12/2018 Status: COMPLETED Source: [place] 10:48 AM [facility] REPOSITORY HNO ID: [id number] Author: Octavia (Rn) ALLYSON Lovell Service: Nursing Author Type: Registered Nurse Type: Patient Education Filed: 07/12/2018 10:49 AM Note Text: PRE OP LEARNING ASSESSMENT PROCEDURE/SURGERY creation of av fistula Replacement of dialysis catheter READINESS TO LEARN COGNITIVE ABILITY: Alert and oriented MOTIVATION TO LEARN: Interested FAMILY SUPPORT: High - Very involved in pt care PATIENT LEARNS BEST BY: Verbal Instruction FACTORS AFFECTING LEARNING: None PHYSICAL LIMITATIONS AFFECTING LEARNING: None Electronically Signed By: Octavia Lovell RN In Department: [facility] SURGERY ANES PREOP Observed: 07/12/2018 Status: COMPLETED Source: [place] 10:46 AM [facility] REPOSITORY HNO ID: [id number] Author: Basim Perdomo MD Service: Anesthesiology Author Type: Anesthesiologist Type: Anesthesia PreOp Filed: 07/12/2018 10:47 AM Note Text: ANESTHESIOLOGY DAY OF SURGERY NOTE SERVICE DATE: 07/12/2018 SERVICE TIME: 1046 : 1940 Procedure(s) (LRB): CREATION FISTULA ARTERIOVENOUS EXTREMITY UPPER (Left) Surgeon(s): Michael Hogan Estimated body mass index is 30.71 kg/m? as calculated from the following: Height as of 06/30/18: 172.7 cm (5' 8). Weight as of 06/30/18: 91.6 kg (202 lb). Most recent hematocrit and potassium results: HEMATOCRIT 37.9 05/10/2018 Potassium 4.7 06/30/2018 ANES DOS/PREOP NOTE: Vitals: There were no vitals filed for this visit. 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, With Long-Term Current Use of Insulin ([facility]) Obesity Gout Pacemaker Chronic Combined Systolic and Diastolic Chf (Congestive Heart Failure) ([facility]) Pulmonary Hypertension ([facility]) Hyponatremia Acute Renal Failure Superimposed On Stage 3 Chronic Kidney Disease ([facility]) Obesity, Class II, Bmi 35-39.9 Esrd On Dialysis ([facility]) Chronic Hypoxemic Respiratory Failure ([facility]) PAST MEDICAL HISTORY Diagnosis Date - Arthritis - Atrial fibrillation ([facility]) - CAD (coronary artery disease) stents x9, defibrillator, CABG. Seeing Dr. Cardona - Cardiac defibrillator in place - Cardiomegaly - Carotid artery disease ([facility]) left - Chronic hypoxemic respiratory failure ([facility]) 07/01/2018 - Chronic kidney disease (CKD) stage G3b/A2, moderately decreased glomerular filtration rate (GFR) between 30-44 mL/min/1.73 square meter and albuminuria creatinine ratio between 30-299 mg/g ([facility]) Dr. Martin - COPD (chronic obstructive pulmonary disease) ([facility]) Dr. Cruz - Depression - Diabetes ([facility]) - Diabetic neuropathy ([facility]) - Edema - ESRD (end stage renal disease) on dialysis ([facility]) [facility], Dr. Martin - GERD (gastroesophageal reflux disease) - Gout with hyperuricemia - HH (hiatus hernia) - HOCM (hypertrophic obstructive cardiomyopathy) ([facility]) S/P Septal Myectomy in 2003. Now with LVEF 50% and mod/severe pulm HTN. - HTN (hypertension) - Hyperlipidemia - Morbid obesity with BMI of 40.0-44.9, adult ([facility]) - Presence of combination internal cardiac defibrillator (ICD) and pacemaker - Sleep apnea 2011 not on CPAP, unable to tolerate mask 02/2017 - SVT (supraventricular tachycardia) (HCC) NSVT and questionable VT in 2003 post op PAST SURGICAL HISTORY Procedure Laterality Date - CABG (1) VEIN GRAFT AND ARTERIAL GRAFT - CHOLECYSTECTOMY HX - DIALYSIS ACCESS SYSTEM - HEART SURGERY HX 07/18/2004 Septal myectomy and CABG x2 (DEBORAH-LAD, SVG-PDA). - HYSTERECTOMY HX - IANDD PERIANAL ABSCESS - PACEMAKER with defib - PAST SURGICAL HISTORY OF left breast nodule removed - PAST SURGICAL HISTORY OF skin lesions removed - STENT PLACEMENT coronary FAMILY HISTORY Problem Relation Age of Onset - Hypertension Mother living at age 93, HTN - Heart Failure Mother NE - Cancer Father age 71, lung cancer - Heart Attack Sister - COPD Brother - Heart Paternal Grandmother - Heart Paternal Grandfather - Heart Sister - Diabetes Sister - Heart Sister - Breast Cancer Sister - Diabetes Sister - Hypertension Brother - Diabetes Brother Social History: Social History Substance Use Topics - Smoking status: Former Smoker Packs/day: 2.50 Years: 43.00 Types: Cigarettes Start date: 1961 Quit date: 07/07/2004 - Smokeless tobacco: Never Used - Alcohol use No No current facility-administered medications on file prior to encounter. Current Outpatient Prescriptions on File Prior to Encounter: carvedilol (COREG) 3.125 mg tablet Take 1 tablet by mouth twice daily with meals. amiodarone (PACERONE) 200 mg tablet Take 1 tablet by mouth once daily. simvastatin (ZOCOR) 40 mg tablet Take 1 tablet by mouth every morning. isosorbide mononitrate ER (IMDUR) 30 mg 24 hr tablet Take 3 tablets by mouth once daily. pregabalin (LYRICA) 25 mg capsule Take 1 tablet PO daily with an additional 1 tablet PO after dialysis MWF metoclopramide HCl (REGLAN) 5 mg tablet Take 1 tablet by mouth three times daily. pantoprazole DR (PROTONIX) 40 mg tablet Take 1 tablet by mouth once daily. insulin aspart U-100 (NOVOLOG FLEXPEN U-100 INSULIN) 100 unit/mL inpn Using Sliding Scale: 150-209 1 unit, 210-269 2 units, 270- 329 3 units, 330-389 4 units, 390-449 5 units insulin glargine (LANTUS SOLOSTAR U-100 INSULIN) 100 unit/mL (3 mL) inpn Inject 50 Units subcutaneously every morning. insulin glargine (LANTUS SOLOSTAR U-100 INSULIN) 100 unit/mL (3 mL) inpn Inject 36 Units subcutaneously daily at bedtime. OXYGEN, HOME THERAPY, Inhale 2.5 L/min as instructed continuous. 3 L/min when leaves home. ELIQUIS 5 mg tab(s) TAKE ONE TABLET BY MOUTH TWICE DAILY senna (SENNA) 8.6 mg tab Take 8.6 mg by mouth once daily. HYDROcodone-acetaminophen (NORCO) 5-325 mg per tablet Take 1 tablet by mouth every 8 hours as needed. ondansetron (ZOFRAN) 4 mg tablet Take 4 mg by mouth every 8 hours as needed. ipratropium-albuterol (DUONEB) 0.5 mg-3 mg(2.5 mg base)/3 mL nebu Inhale 3 mL as instructed every 4 hours while awake. And prn for wheezing/shortness of breath. budesonide (PULMICORT) 0.5 mg/2 mL nebulizer solution Use 2 mL via nebulizer once daily. INHALE 2 ML BY NEBULIZER OVER 5-15 MINUTES EVERY 12 HOURS. nystatin (NYSTOP) powder Apply 1 application to affected area three times daily. guaiFENesin-dextromethorphan (ROBITUSSIN DM) 100-10 mg/5 mL syrup Take 5-10 mL by mouth every 6 hours as needed for Cough. nitroglycerin sublingual (NITROQUICK) 0.4 mg SL tablet Dissolve 1 tablet under the tongue every 5 minutes as needed. Current Facility-Administered Medications: NaCl 0.9% iv infusion 5-30 mL/hr INTRAVENOUS CONTINUOUS Michael Hogan clindamycin 900 mg in D5W 50 mL (CLEOCIN) 900 mg INTRAVENOUS Pre-Op Once Michael Hogan Allergies: ALLERGIES Allergen Reactions - Aspirin Other: See Comments Patient states that she bled out every orifice, sts not allowed to take it at all. Patient states she was bleeding out of nose and mouth after one dose. - Bactrim [Sulfametho* Other: See Comments My throat swells up. - Latex Rash, Itching Itching and welts. No wheezing or shortness of breath. - Penicillins Rash, Itching Tolerated ceftriaxone during 11/2017 admission and cefepime during 12/2017 admission - Tetracycline Rash, GI Upset Emesis and diarrhea. - Atorvastatin Rash - Codeine Other: See Comments Numbness - Dilaudid [Hydromorp* Mental Status Change - Meperidine - Pentazocine - Pioglitazone Unknown - Propoxyphene DOS EXAM: Adequate NPO status: Yes Anesthetic risks, benefits, alternatives, personnel and consent discussed: Yes Patient agrees to proceed: Yes Previous Anesthesia: No history of adverse event. Airway Assessment: MP 2; Neck ROM: Full ROM without neurologic symptoms; Airway Evaluation: Short Neck Symptoms of Sleep Apnea: +dx, noncompliant with cpap Dentition: Poor dentition Multiple missing teeth Broken tooth lower left and lower right Dentures: upper Chipped, loose and/or missing Additional Physical Exam: Lungs: Patient health status unchanged since recent history and physical. See history and physical for exam findings. Cardiac: Patient health status unchanged since recent history and physical. See history and physical for exam findings. Blood Products: Not anticipated for this procedure. Anesthetic Plan: General, Standard ASA Monitors Pain Management Plan: Parenteral or Oral ASA Class: 4 Chronic Beta Lenny medication administered within 24 hours: N/A I have interviewed and examined the patient. I have reviewed the medical record and/or the pre-anesthesia evaluation, pertinent labs, and test results. Significant changes in the patient's condition since the History and Physical, not otherwise documented in primary service progress notes: No This contains updated information obtained within 48 hours of Surgery/Procedure. SIGNATURE: Basim Perdomo MD PATIENT NAME: Luz Baca DATE: July 12, 2018 TIME: 10:46 AM CSN: [id number] OPERATIVE NO Observed: 07/12/2018 Status: COMPLETED Source: [place] 12:00 AM CLINIC OTHER CAMPUS REPOSITORY O ID: [id number] Author: Michael Hogan Service: Vascular Surgery Author Type: Physician Type: Operative Report Filed: 07/26/2018 9:59 AM Note Text: [facility] - Operative Report LUZ BACA : 1940 AGE: 77. SEX: F PATIENT TYPE: A [facility] [place]: WHEELER LOCATION: [facility] [place] ATTENDING PHYSICIAN: BERNARD NUMBER: [id number] DATE OF SURGERY/PROCEDURE: 07/12/2018 INCISION/PROCEDURE START TIME: 13:22. INCISION CLOSE/PROCEDURE END TIME: 15:24. PREOPERATIVE DIAGNOSIS: End-stage renal disease, on dialysis, need for dialysis access. POSTOPERATIVE DIAGNOSIS: End-stage renal disease, on dialysis, need for dialysis access. SURGEON: Michael Hogan D.O. [employer] ENGINEER: Pat Caal. SURGERY/PROCEDURE: Creation of right upper extremity brachiocephalic arteriovenous fistula. ANESTHESIA: General INDICATIONS: The patient is a 77-year-old female who was recently started on dialysis via right IJ tunneled catheter. She has a history of a left pacemaker defibrillator on the left. She had preoperative vein mapping that demonstrated adequate bilateral upper extremity veins. With this, it was recommended that she undergo a fistula creation. Risks, benefits, and alternatives were discussed with the patient and consent obtained. DESCRIPTION OF PROCEDURE: The patient was taken to the operating room. She was placed supine on the operating room table. A huddle was performed. Following this, her veins were interrogated with ultrasound, and she was found to have a cephalic vein that was greater than 3 millimeters in diameter throughout its course of her upper extremity. With this, our plan was to perform a right brachiocephalic AV fistula. I marked the location of the cephalic vein and brachial artery. We then infiltrated the area above the antecubital fossa with 1% lidocaine. We made a transverse skin incision and deepened down the tissues with bipolar LigaSure device. We identified the cephalic vein and sharply dissected it free. The vein did spasm during our dissection. However, once we mobilized it sufficiently, ligating branches with 3-0 silk suture, I then transected it distally and dilated the vein with heparinized saline. The vein did dilate adequately. Following this, I identified the brachial artery and sharply dissected it free using Metzenbaum scissors. We then got control with Silastic vessel loops. The patient was heparinized. Once the heparin was allowed to circulate for a period of 3 minutes, we clamped the vessel. We made an arteriotomy with a #11 blade and extended it with James scissors. We then fashioned an end-to-side anastomosis ensuring no kinks or twists with 6-0 Prolene suture in standard fashion. Prior to completion, we flushed both proximally and distally. She had excellent backbleeding as well as inflow. We then flushed with heparinized saline. We completed our anastomosis. Following this, the patient had an excellent thrill noted throughout the vein. It also did dilate nicely after completion of our fistula. She had Doppler radial, ulnar, and palmar arch signals that did not augment with compression of her fistula as well as a palpable pulse. Following this, the wound was copiously irrigated. Hemostasis was achieved with bipolar as well as electrocautery. Our heparin was reversed with protamine. We then closed the deep layers with interrupted 3-0 Vicryl, deep dermal with 3-0 Vicryl, and skin was closed with 4-0 Monocryl. Sterile dressing of two layers of Exofin skin glue was applied. The patient was awakened in the operating room and taken to the Postanesthesia Care Unit in stable condition. I was present, scrubbed, and performed this with the assistance of Pat Caal. The sponge and needle counts were correct at the end of the case. Michael Hogan D.O. [id number] /[id number] CTA ABD/PEL/LOWER EXT W Observed: 07/07/2018 Status: F Source: [place] IVCON 10:05 AM [facility] OTHER CAMPUS REPOSITORY * * *Final Report* * * DATE OF EXAM: Jul 07 2018 10:05AM [facility] [place] 0122 - CTA ABD/PEL/LOWER EXT W IVCON / PROCEDURE REASON: R09.89-Other specified symptoms and signs involving the circulatory and respirat * * * * Physician Interpretation * * * * CT ANGIOGRAM OF THE ABDOMEN, PELVIS, AND BILATERAL LOWER EXTREMITIES HISTORY: Peripheral vascular disease TECHNIQUE: High-resolution contrast-enhanced helical CT of the abdomen, pelvis and both lower extremities was performed, timed to the arterial phase. 3-D processing was performed by the physician on an independent work station, with MIP and volume-rendering techniques. Total of 100 ml of Omnipaque 350 was injected IV during the examination. The study was performed without oral contrast. The patient tolerated the injection without complications. Dose-Length Product (DLP): 751 mGy*cm. CT Dose Reduction Employed: Automated exposure control (AEC) RESULT: COMPARISON: No prior studies are available for comparison. ABDOMEN: Images of the aorta demonstrate diffuse atherosclerotic change without significant focal stenosis or aneurysm. Celiac artery demonstrates 40% narrowing secondary to noncalcified lesion. Superior mesenteric artery demonstrates no significant focal stenosis. Inferior mesenteric artery demonstrates no significant focal stenosis. There are two right renal arteries. Right renal artery demonstrates no significant focal stenosis. There is a single renal vein which is patent. There is a single left renal artery. Left renal artery demonstrates 40-50 % narrowing. There is a single renal vein which is patent. RIGHT LEG: Right common iliac artery is widely patent with no significant stenosis. Right external iliac artery is widely patent with no significant stenosis. Right internal iliac artery demonstrates focal moderate (40- 50 %) stenosis. Right common femoral artery is widely patent with no significant stenosis. Right profunda femoris artery is widely patent with no significant stenosis. Right superficial femoral artery demonstrates focal high grade (> 70 %) stenosis Right popliteal artery demonstrates focal high grade (> 70 %) stenosis (series 4 image [id number]). Right anterior tibial artery is widely patent with no significant stenosis. Dorsalis pedis is seen and normal in appearance. Right tibioperoneal trunk is widely patent with no significant stenosis. Right posterior tibial artery is widely patent with no significant stenosis. Posterior tibial artery is normal in caliber and seen to the foot. Right peroneal artery is occluded. LEFT LEG: Metal clips are seen in the soft tissues of the medial aspect of the thyroid most likely representing postsurgical changes. Left common iliac artery demonstrates focal dissection in the proximal vessel (series 4 image 361). Left external iliac artery is widely patent with no significant stenosis. Left internal iliac artery is widely patent with no significant stenosis. Left common femoral artery is widely patent with no significant stenosis. Left profunda femoris artery is widely patent with no significant stenosis. Left superficial femoral artery demonstrates focal high grade (> 70 %) stenosis (series 4 image 843). Left popliteal artery demonstrates focal high grade (> 70 %) stenosis in the proximal vessel (series 4 image 896). Left anterior tibial artery is occluded. Dorsalis pedis is not seen. Left tibioperoneal trunk is widely patent with no significant stenosis. Left posterior tibial artery is widely patent with no significant stenosis. Posterior tibial artery is normal in caliber and seen to the foot. Left peroneal artery is widely patent with no significant stenosis. NONVASCULAR FINDINGS: Scattered calcifications are seen within the pleura on the left hemithorax most likely related with asbestos exposure. Images through the lung bases demonstrate no acute pulmonary parenchymal abnormality or pleural effusion. Liver, pancreas, spleen, bilateral adrenal glands, right kidney, and left kidney are unremarkable. Postcholecystectomy changes are seen. There are no enlarged lymph nodes. Multiple diverticula are seen within the sigmoid colon. There is no significant free fluid. The uterus is not visualized and may be atrophic recommending clinical correlation. Spondylotic changes of the spine. IMPRESSION: High degree stenosis of the right superficial femoral and popliteal arteries. Two vessels runoff throughout the right leg. Focal dissection of the left common iliac artery. High degree stenosis of the left superficial femoral artery as well as left popliteal tail artery. Two vessels runoff throughout the left leg. Service Delivery Supervisor: PSCTimmy Transcribe Date/Time: Jul 07 2018 10:39A Dictated by : KERRI MERCADO MD This examination was interpreted and the report reviewed and electronically signed by: KERRI MERCADO MD on Jul 07 2018 12:28PM EST [id number] CT 3D POST PROCESSING Observed: 07/07/2018 Status: F Source: [place] 10:03 AM [facility] OTHER CAMPUS REPOSITORY * * *Final Report* * * DATE OF EXAM: Jul 07 2018 10:03AM [facility] [place] [id number] - CT 3D POST PROCESSING / PROCEDURE REASON: R09.89-Other specified symptoms and signs involving the circulatory and respirat * * * * Physician Interpretation * * * * CT ANGIOGRAM OF THE ABDOMEN, PELVIS, AND BILATERAL LOWER EXTREMITIES HISTORY: Peripheral vascular disease TECHNIQUE: High-resolution contrast-enhanced helical CT of the abdomen, pelvis and both lower extremities was performed, timed to the arterial phase. 3-D processing was performed by the physician on an independent work station, with MIP and volume-rendering techniques. Total of 100 ml of Omnipaque 350 was injected IV during the examination. The study was performed without oral contrast. The patient tolerated the injection without complications. Dose-Length Product (DLP): 751 mGy*cm. CT Dose Reduction Employed: Automated exposure control (AEC) RESULT: COMPARISON: No prior studies are available for comparison. ABDOMEN: Images of the aorta demonstrate diffuse atherosclerotic change without significant focal stenosis or aneurysm. Celiac artery demonstrates 40% narrowing secondary to noncalcified lesion. Superior mesenteric artery demonstrates no significant focal stenosis. Inferior mesenteric artery demonstrates no significant focal stenosis. There are two right renal arteries. Right renal artery demonstrates no significant focal stenosis. There is a single renal vein which is patent. There is a single left renal artery. Left renal artery demonstrates 40-50 % narrowing. There is a single renal vein which is patent. RIGHT LEG: Right common iliac artery is widely patent with no significant stenosis. Right external iliac artery is widely patent with no significant stenosis. Right internal iliac artery demonstrates focal moderate (40- 50 %) stenosis. Right common femoral artery is widely patent with no significant stenosis. Right profunda femoris artery is widely patent with no significant stenosis. Right superficial femoral artery demonstrates focal high grade (> 70 %) stenosis Right popliteal artery demonstrates focal high grade (> 70 %) stenosis (series 4 image [id number]). Right anterior tibial artery is widely patent with no significant stenosis. Dorsalis pedis is seen and normal in appearance. Right tibioperoneal trunk is widely patent with no significant stenosis. Right posterior tibial artery is widely patent with no significant stenosis. Posterior tibial artery is normal in caliber and seen to the foot. Right peroneal artery is occluded. LEFT LEG: Metal clips are seen in the soft tissues of the medial aspect of the thyroid most likely representing postsurgical changes. Left common iliac artery demonstrates focal dissection in the proximal vessel (series 4 image 361). Left external iliac artery is widely patent with no significant stenosis. Left internal iliac artery is widely patent with no significant stenosis. Left common femoral artery is widely patent with no significant stenosis. Left profunda femoris artery is widely patent with no significant stenosis. Left superficial femoral artery demonstrates focal high grade (> 70 %) stenosis (series 4 image 843). Left popliteal artery demonstrates focal high grade (> 70 %) stenosis in the proximal vessel (series 4 image 896). Left anterior tibial artery is occluded. Dorsalis pedis is not seen. Left tibioperoneal trunk is widely patent with no significant stenosis. Left posterior tibial artery is widely patent with no significant stenosis. Posterior tibial artery is normal in caliber and seen to the foot. Left peroneal artery is widely patent with no significant stenosis. NONVASCULAR FINDINGS: Scattered calcifications are seen within the pleura on the left hemithorax most likely related with asbestos exposure. Images through the lung bases demonstrate no acute pulmonary parenchymal abnormality or pleural effusion. Liver, pancreas, spleen, bilateral adrenal glands, right kidney, and left kidney are unremarkable. Postcholecystectomy changes are seen. There are no enlarged lymph nodes. Multiple diverticula are seen within the sigmoid colon. There is no significant free fluid. The uterus is not visualized and may be atrophic recommending clinical correlation. Spondylotic changes of the spine. IMPRESSION: High degree stenosis of the right superficial femoral and popliteal arteries. Two vessels runoff throughout the right leg. Focal dissection of the left common iliac artery. High degree stenosis of the left superficial femoral artery as well as left popliteal tail artery. Two vessels runoff throughout the left leg. Service Delivery Supervisor: PSCB Transcribe Date/Time: Jul 07 2018 10:39A Dictated by : KERRI MERCADO MD This examination was interpreted and the report reviewed and electronically signed by: KERRI MERCADO MD on Jul 07 2018 12:28PM EST [id number] NURSING PROG Observed: 07/05/2018 Status: COMPLETED Source: [place] 2:01 PM [facility] OTHER CAMPUS REPOSITORY HNO ID: [id number] Author: Dilma (Rn) ALLYSON Head Service: Nursing Author Type: Registered Nurse Type: Nursing Progress Note Filed: 07/05/2018 2:23 PM Note Text: PACC Nurse Progress Note History AND Physical: PACC Visit Date: 06/30/18 Original HANDP Date: 06/30/18 ED visit Date: N/A Outside HANDP Scanned Date: N/A Labs Within Last 6 Months: CBC: Date 05/10/18 cbc/diff- within acceptable limits BMP/CMP: Date 06/30/18 bmp- BS 106, BUN 23, creatinine 4.1- HX dialysis, ESRD, DM HBA1C: Date 05/25/18 6.8 Imaging Within Last 12 Months: N/A Cardiac Testing: EKG in last 12 Months: Yes: Date: 05/19/18, Comment: ventricular paced rhythm Device:Pacer/Defib, Comment: Last interrogation 06/02/18, scanned in the medical center 06/08/18. Implant 2017 for SSS, Mode VVIR, battery life 5yrs ,8mos. Cath 05/13/18- scanned in the medical center Echo 05/11/18 , scanned in the medical center, EF 55%, Severe PHTN -RVSP- 77, right and left atrium severely enlarged. Last Menstrual Period: LMP Date: N/A Postmenopausal >1yr: Yes, S/P Hysterectomy: No BMI Percentile (PEDS): N/A BMI 30.7 Risk Assessment: CONSULTS: Cardiology Consult for cardiac clearance for ASHD, A fib, HTN, HLD, CM.. Per TE 07/01/[address] Cardona-- Note Ideally, she should be on aspirin. She is relatively stable, but has had recent non-STEMI and ongoing chest pain of possible ischemic etiology. Her risk of any type of surgery is at least 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. However, I do not recommend any further studies prior to surgery. Aren Cardona MD (Routing comment) Anesthesia Review: Pulmonary HTN with RVSP 77mg Hg. Note to anesthesia re:Email sent. Significant Anesthesia Considerations: Slow emergence and Difficult IV/Vein Access: yes Obesity-BMI 30.72 H/o bradycardia ASHD-CABGx3 in 2003, PCIx6 in 2013, PCIx3 in 2014 HCM s/p septal myectomy 2003 PAF-taking Eliquis Pulmonary HTN-RVSP 77mg Hg-ECHO 05/12/18 Ischemic CM s/p ICD 2014, revised 11/2016, Last interrogation 06/02/18 Systolic CHF IDDM-A1C 6.8% (05/25/18) COPD/Chronic hypoxemic respiratory failure-O2 dependent (usually 2.5L Narrative: pt in wheelchair --Pt O2 dependent. Gets EDMONDS with walking around house with walker. Skin: ulcer on left toe-being treated by [facility]. Dr. Hogan's office aware Difficult IV/Vein Access: yes Per TE--pt's daughter aware to hold Eliquis [address] Hogan's request Pre-op Considerations: ESRD-- Dialysis M -W-F HX IDDM Chart Check: COMPLETED Dilma Head RN July 05, 2018 2:01 PM PROGRESS Observed: 07/05/2018 Status: COMPLETED Source: [place] 12:53 PM [facility] REPOSITORY HNO ID: [id number] Author: Jameson Adams) Koffi Service: (none) Author Type: Physician Type: Progress Notes Filed: 07/05/2018 10:40 PM Note Text: Chief Complaint Patient presents with: Recheck: 4 week follow up DM - weakness - chest discomfort - 2 nitro yesterday at dialysis and 2 nitro today HPI Luz Baca is a 77 year old female who presents here today for Above Complaints. Patient states that she has been requiring nitro over the last 2 days. Needed 2 yesterday while at dialysis and then again today. Seems to help for about 5-10 minutes and then the pain returns. Described as crushing pain in the center of her chest without radiation. Associated with SOB. Denies nausea, sweating, lightheadedness, worsening with exertion or improvement with rest. Symptoms present for the last [address] weeks[address] Has not notified Dr. Cardona of need for nitro. Taking Imdur and other medicaitons as prescribed. DIABETES MELLITUS: Since our last visit she denies excessive thirst or increased frequency of urination, numbness, tingling or pain in extremities, new or unusual visual symptoms and low sugar/hypoglycemic reactions. Follows a diabetic diet most of the time. She is compliant with medication(s) and is tolerating med(s) without any side effects. She reports checking her glucose on a twice a day schedule with sugars in the fasting <120 range, <150 before bed. Patient's last HgA1C was Hemoglobin A1C (%) Date Value 05/25/2018 6.8 01/26/2018 12.0 ) Last Ophthalmology exam was within the past 12 months Last Podiatry exam was within the past 12 months Still attending dialysis MWF. Has fistula placement on Thursday 07/[address] Hogan. COPD: well controlled on current regimen. Using oxygen daily as recommended 2.5-3 L. On 2.5 L oxygen at night. Due for flu shot today. Past medical history, appointments, medications, allergies reviewed. Previous Medical History PAST MEDICAL HISTORY Diagnosis Date - Arthritis - Atrial fibrillation ([facility]) - CAD (coronary artery disease) stents x9, defibrillator, CABG. Seeing Dr. Cardona - Cardiac defibrillator in place - Cardiomegaly - Carotid artery disease ([facility]) left - Chronic hypoxemic respiratory failure ([facility]) 07/01/2018 - Chronic kidney disease (CKD) stage G3b/A2, moderately decreased glomerular filtration rate (GFR) between 30-44 mL/min/1.73 square meter and albuminuria creatinine ratio between 30-299 mg/g ([facility]) Dr. Martin - COPD (chronic obstructive pulmonary disease) ([facility]) Dr. Cruz - Depression - Diabetes ([facility]) - Diabetic neuropathy ([facility]) - Edema - ESRD (end stage renal disease) on dialysis ([facility]) MWDr. Veronica Cortez - GERD (gastroesophageal reflux disease) - Gout with hyperuricemia - HH (hiatus hernia) - HOCM (hypertrophic obstructive cardiomyopathy) ([facility]) S/P Septal Myectomy in 2003. Now with LVEF 50% and mod/severe pulm HTN. - HTN (hypertension) - Hyperlipidemia - Morbid obesity with BMI of 40.0-44.9, adult ([facility]) - Sleep apnea 2011 not on CPAP, unable to tolerate mask 02/2017 - SVT (supraventricular tachycardia) ([facility]) NSVT and questionable VT in 2003 post op Previous Surgical History PAST SURGICAL HISTORY Procedure Laterality Date - CABG (1) VEIN GRAFT AND ARTERIAL GRAFT - CHOLECYSTECTOMY HX - DIALYSIS ACCESS SYSTEM - HEART SURGERY HX 07/18/2004 Septal myectomy and CABG x2 (DEBORAH-LAD, SVG-PDA). - HYSTERECTOMY HX - IANDD PERIANAL ABSCESS - PACEMAKER with defib - PAST SURGICAL HISTORY OF left breast nodule removed - PAST SURGICAL HISTORY OF skin lesions removed - STENT PLACEMENT coronary Family History FAMILY HISTORY Problem Relation Age of Onset - Hypertension Mother living at age 93, HTN - Heart Failure Mother [place] - Cancer Father age 71, lung cancer - Heart Attack Sister - COPD Brother - Heart Paternal Grandmother - Heart Paternal Grandfather - Heart Sister - Diabetes Sister - Heart Sister - Breast Cancer Sister - Diabetes Sister - Hypertension Brother - Diabetes Brother Patient Allergies ALLERGIES Allergen Reactions - Aspirin Other: See Comments Patient states that she bled out every orifice, sts not allowed to take it at all. Patient states she was bleeding out of nose and mouth after one dose. - Bactrim [Sulfametho* Other: See Comments My throat swells up. - Latex Rash, Itching Itching and welts. No wheezing or shortness of breath. - Penicillins Rash, Itching Tolerated ceftriaxone during 11/2017 admission and cefepime during 12/2017 admission - Tetracycline Rash, GI Upset Emesis and diarrhea. - Atorvastatin Rash - Codeine Other: See Comments Numbness - Dilaudid [Hydromorp* Mental Status Change - Meperidine - Pentazocine - Pioglitazone Unknown - Propoxyphene Current Medications Current Outpatient Prescriptions on File Prior to Visit: bacitracin zinc (ANTIBIOTIC, BACITRACIN ZINC,) 500 unit/gram ointment Apply 1 application to affected area twice daily. polyethylene glycol 3350 (MIRALAX) 17 gram/dose powder Use 1-2 times daily as needed for constipation. carvedilol (COREG) 3.125 mg tablet Take 1 tablet by mouth twice daily with meals. amiodarone (PACERONE) 200 mg tablet Take 1 tablet by mouth once daily. simvastatin (ZOCOR) 40 mg tablet Take 1 tablet by mouth every morning. isosorbide mononitrate ER (IMDUR) 30 mg 24 hr tablet Take 3 tablets by mouth once daily. pregabalin (LYRICA) 25 mg capsule Take 1 tablet PO daily with an additional 1 tablet PO after dialysis MWF ELIQUIS 5 mg tab(s) TAKE ONE TABLET BY MOUTH TWICE DAILY metoclopramide HCl (REGLAN) 5 mg tablet Take 1 tablet by mouth three times daily. pantoprazole DR (PROTONIX) 40 mg tablet Take 1 tablet by mouth once daily. insulin aspart U-100 (NOVOLOG FLEXPEN U-100 INSULIN) 100 unit/mL inpn Using Sliding Scale: 150-209 1 unit, 210-269 2 units, 270- 329 3 units, 330-389 4 units, 390-449 5 units senna (SENNA) 8.6 mg tab Take 8.6 mg by mouth once daily. HYDROcodone-acetaminophen (NORCO) 5-325 mg per tablet Take 1 tablet by mouth every 8 hours as needed. ondansetron (ZOFRAN) 4 mg tablet Take 4 mg by mouth every 8 hours as needed. ipratropium-albuterol (DUONEB) 0.5 mg-3 mg(2.5 mg base)/3 mL nebu Inhale 3 mL as instructed every 4 hours while awake. And prn for wheezing/shortness of breath. budesonide (PULMICORT) 0.5 mg/2 mL nebulizer solution Use 2 mL via nebulizer once daily. INHALE 2 ML BY NEBULIZER OVER 5-15 MINUTES EVERY 12 HOURS. insulin glargine (LANTUS SOLOSTAR U-100 INSULIN) 100 unit/mL (3 mL) inpn Inject 50 Units subcutaneously every morning. insulin glargine (LANTUS SOLOSTAR U-100 INSULIN) 100 unit/mL (3 mL) inpn Inject 36 Units subcutaneously daily at bedtime. nystatin (NYSTOP) powder Apply 1 application to affected area three times daily. guaiFENesin-dextromethorphan (ROBITUSSIN DM) 100-10 mg/5 mL syrup Take 5-10 mL by mouth every 6 hours as needed for Cough. nitroglycerin sublingual (NITROQUICK) 0.4 mg SL tablet Dissolve 1 tablet under the tongue every 5 minutes as needed. OXYGEN, HOME THERAPY, Inhale 2.5 L/min as instructed continuous. 3 L/min when leaves home. No current facility-administered medications on file prior to visit. Social History Social History Marital status: Spouse name: Years of education: Number of children: Social History Main Topics Smoking status: Former Smoker Packs/day: 2.50 Years: 43.00 Types: Cigarettes Start date: 1961 Quit date: 07/07/2004 Smokeless tobacco: Never Used Alcohol use: No Drug use: No Other Topics Concern Caffeine Concern Yes Comment:coffee 1 cup daily Special Diet No Comment:Regular Exercise No Comment:no unable, due to SOB x several months. Social History Narrative Patient and daughter live together. Review of Symptoms REVIEW OF SYSTEMS GENERAL: No weight loss, malaise or fevers RESPIRATORY: See HPI CARDIOVASCULAR: See HPI GI: No nausea, vomiting, or diarrhea SKIN: Negative for lesions, rash, and itching EXAM: BP 104/72 Pulse 60 Temp 36.4 ?C (97.6 ?F) (Temporal Artery) Resp 12 SpO2 95% General Appearance: Well appearing, alert, in no acute distress, well-hydrated, well nourished.. Skin: left 4th toe healed. Left 3rd toe has mild amount of crusting over tip just inferior to nail without erythema or drainage. 2nd toe bandage removed showing stage 1 ulcer on superior aspect without erythema or drainage. Lungs: Lungs clear to auscultation. No wheezing, rhonchi, rales. Heart: RRR without murmur, gallop, or rubs. No ectopy. Abdomen: Normal abdominal exam, Abdomen soft, non-tender. Bowel sounds normal. No masses, organomegaly. Extremities: No deformities, edema, skin discoloration, clubbing or cyanosis. Good capillary refill. . Health Maintenance List DTAP,TDAP,TD(1 - Tdap) due on 1960 COLORECTAL CANCER SCREENING,SEE MODIFIER due on 1991 BONE DENSITY due on 2006 ADULT PREVNAR-13 due on 2006 PNEUMOVAX AGE 65 AND OVER WITH 5YR LOOKBACK(1) due on 2006 DMAION/ARB MED PRESCRIBED due on 06/23/2018 INFLUENZA(1) due on 06/18/2018 STATIN MED ADHERENCE due on 07/18/2018 DIABETES MED ADHERENCE due on 07/18/2018 DILATED RETINAL EXAM due on 10/27/2018 HBA1C due on 11/25/2018 DIABETIC FOOT EXAM due on 01/31/2019 HEMOGLOBIN/HEMATOCRIT due on 05/10/2019 URINE ALBUMIN:CREATININE RATIO due on 05/25/2019 LDL CHOLESTEROL due on 05/25/2019 ANNUAL PCP TEAM CHRONIC DISEASE VISIT due on 06/23/2019 SERUM CREATININE due on 06/30/2019 BP CONTROLLED (<130/80) due on 06/30/2019 Data reviewed Component Latest Ref Rng AND Units 05/25/2018 06/16/2018 06/30/2018 06/30/2018 9:45 AM 9:45 AM Glucose 74 - 99 mg/dL 106 (H) BUN 7 - 21 mg/dL 23 (H) Creatinine 0.58 - 0.96 mg/dL 4.15 (H) 4.16 (H) Sodium 136 - 144 mmol/L 137 Potassium 3.7 - 5.1 mmol/L 4.7 Chloride 97 - 105 mmol/L 93 (L) CO2 22 - 30 mmol/L 32 (H) Anion Gap 9 - 18 mmol/L 12 Calcium 8.5 - 10.2 mg/dL 9.5 eGFR- 13 13 eGFR-All Other Races . 10 10 Cholesterol, Total <200 mg/dL 111 Triglyceride <150 mg/dL 91 HDL Cholesterol >39 mg/dL 38 (L) LDL Cholesterol <100 mg/dL 55 Non HDL Cholesterol <130 mg/dL 73 Fasting Time hrs 12 VLDL Cholesterol <30 mg/dL 18 TC:HDL Ratio <5.10 2.92 LDL:HDL Ratio <2.54 1.45 Creatinine, Ur Random (UCRR) 20 - 300 mg/dL 417.1 (H) Albumin, Urine Random 0.0 - 23.0 mg/L 42.3 (H) Albumin/Creat Ratio 0 - 30 mg/g 10 Hemoglobin A1C 4.3 - 5.6 % 6.8 (H) Estimated Average Glucose mg/dL 148 ALT 7 - 38 U/L 13 16 TSH 0.400 - 5.500 uU/mL 2.110 2.080 Creatinine, Wali 0.7 - 1.4 mg/dL 3.6 (H) ASSESSMENT/PLAN: 1. Uncontrolled type 2 diabetes mellitus with stage 3 chronic kidney disease, with long-term current use of insulin ([facility]) - ICD9: 250.52, 585.3, V58.67, ICD10: E11.22, E11.65, N18.3, Z79.4 (primary diagnosis) improved control - Continue current medications - Blood glucose monitoring on a twice a day schedule - Ophthalmology referral for eval/management of diabetic eye changes - Encouraged regular aerobic exercise and weight loss - Daily Asprin therapy recommended - HGB A1C 2. Atrial fibrillation, unspecified type ([facility]) - ICD9: 427.31, ICD10: I48.91 Rate controlled. Continue current regimen. Follow up with cardiology. 3. Coronary artery disease, angina presence unspecified, unspecified vessel or lesion type, unspecified whether rincon or transplanted heart - ICD9: 414.00, ICD10: I25.10 Symptoms present for 3 weeks. Continue nitro PRN for chest pain symptoms. Continue Imdur. Follow up with cardiology. 4. Chronic obstructive pulmonary disease, unspecified COPD type ([facility]) - ICD9: 496, ICD10: J44.9 Severe COPD. Continue home oxygen and inhaler regimen. 5. Hypertension - ICD9: 401.9, ICD10: I10 - good control - Continue current medication(s) - Encouraged dietary sodium restriction/DASH diet - Recommended regular aerobic exercise. - Reviewed risks of HTN and principles of treatment - Goal of BP <140/90 6. Gastroesophageal reflux disease, esophagitis presence not specified - ICD9: 530.81, ICD10: K21.9 Controlled on current regimen. 7. Asymptomatic postmenopausal status - ICD9: V49.81, ICD10: Z78.0 Due for repeat DXA scan. - DXA-AXIAL SKELETON 8. ESRD on dialysis ([facility]) - ICD9: 585.6, V45.11, ICD10: N18.6, Z99.2 Continue dialysis MWF. Jameson Kamara MD CNOV Observed: 07/05/2018 Status: COMPLETED Source: [place] 12:20 PM [facility] REPOSITORY Office Visit (FAMPWS) LUZ BACA ([id number]) 1940 F Date Time Provider Department 07/05/18 12:20 PM JAMESON KAMARA) [facility] During your visit today, we recorded the following information about you: Temperature Pulse Respiration Blood pressure 97.6 degrees 60/minute 12/minute 104/72 Jameson Kamara MD 07/05/2018 10:40 PM Signed Chief Complaint Patient presents with: Recheck: 4 week follow up DM - weakness - chest discomfort - 2 nitro yesterday at dialysis and 2 nitro today HPI Luz Baca is a 77 year old female who presents here today for Above Complaints. Patient states that she has been requiring nitro over the last 2 days. Needed 2 yesterday while at dialysis and then again today. Seems to help for about 5-10 minutes and then the pain returns. Described as crushing pain in the center of her chest without radiation. Associated with SOB. Denies nausea, sweating, lightheadedness, worsening with exertion or improvement with rest. Symptoms present for the last [address] weeks[address] Has not notified Dr. Cardona of need for nitro. Taking Imdur and other medicaitons as prescribed. DIABETES MELLITUS: Since our last visit she denies excessive thirst or increased frequency of urination, numbness, tingling or pain in extremities, new or unusual visual symptoms and low sugar/hypoglycemic reactions. Follows a diabetic diet most of the time. She is compliant with medication(s) and is tolerating med(s) without any side effects. She reports checking her glucose on a twice a day schedule with sugars in the fasting <120 range, <150 before bed. Patient's last HgA1C was Hemoglobin A1C (%) Date Value 05/25/2018 6.8 01/26/2018 12.0 ) Last Ophthalmology exam was within the past 12 months Last Podiatry exam was within the past 12 months Still attending dialysis MW. Has fistula placement on Thursday 07/[address] Hogan. COPD: well controlled on current regimen. Using oxygen daily as recommended 2.5-3 L. On 2.5 L oxygen at night. Due for flu shot today. Past medical history, appointments, medications, allergies reviewed. Previous Medical History PAST MEDICAL HISTORY Diagnosis Date - Arthritis - Atrial fibrillation ([facility]) - CAD (coronary artery disease) stents x9, defibrillator, CABG. Seeing Dr. Cardona - Cardiac defibrillator in place - Cardiomegaly - Carotid artery disease ([facility]) left - Chronic hypoxemic respiratory failure ([facility]) 07/01/2018 - Chronic kidney disease (CKD) stage G3b/A2, moderately decreased glomerular filtration rate (GFR) between 30-44 mL/min/1.73 square meter and albuminuria creatinine ratio between 30-299 mg/g ([facility]) Dr. Martin - COPD (chronic obstructive pulmonary disease) ([facility]) Dr. Cruz - Depression - Diabetes ([facility]) - Diabetic neuropathy ([facility]) - Edema - ESRD (end stage renal disease) on dialysis ([facility]) [facility], Dr. Martin - GERD (gastroesophageal reflux disease) - Gout with hyperuricemia - HH (hiatus hernia) - HOCM (hypertrophic obstructive cardiomyopathy) ([facility]) S/P Septal Myectomy in 2003. Now with LVEF 50% and mod/severe pulm HTN. - HTN (hypertension) - Hyperlipidemia - Morbid obesity with BMI of 40.0-44.9, adult ([facility]) - Sleep apnea 2011 not on CPAP, unable to tolerate mask 02/2017 - SVT (supraventricular tachycardia) ([facility]) NSVT and questionable VT in 2003 post op Previous Surgical History PAST SURGICAL HISTORY Procedure Laterality Date - CABG (1) VEIN GRAFT AND ARTERIAL GRAFT - CHOLECYSTECTOMY HX - DIALYSIS ACCESS SYSTEM - HEART SURGERY HX 07/18/2004 Septal myectomy and CABG x2 (DEBORAH-LAD, SVG-PDA). - HYSTERECTOMY HX - IANDD PERIANAL ABSCESS - PACEMAKER with defib - PAST SURGICAL HISTORY OF left breast nodule removed - PAST SURGICAL HISTORY OF skin lesions removed - STENT PLACEMENT coronary Family History FAMILY HISTORY Problem Relation Age of Onset - Hypertension Mother living at age 93, HTN - Heart Failure Mother [place] - Cancer Father age 71, lung cancer - Heart Attack Sister - COPD Brother - Heart Paternal Grandmother - Heart Paternal Grandfather - Heart Sister - Diabetes Sister - Heart Sister - Breast Cancer Sister - Diabetes Sister - Hypertension Brother - Diabetes Brother Patient Allergies ALLERGIES Allergen Reactions - Aspirin Other: See Comments Patient states that she bled out every orifice, sts not allowed to take it at all. Patient states she was bleeding out of nose and mouth after one dose. - Bactrim [Sulfametho* Other: See Comments My throat swells up. - Latex Rash, Itching Itching and welts. No wheezing or shortness of breath. - Penicillins Rash, Itching Tolerated ceftriaxone during 11/2017 admission and cefepime during 12/2017 admission - Tetracycline Rash, GI Upset Emesis and diarrhea. - Atorvastatin Rash - Codeine Other: See Comments Numbness - Dilaudid [Hydromorp* Mental Status Change - Meperidine - Pentazocine - Pioglitazone Unknown - Propoxyphene Current Medications Current Outpatient Prescriptions on File Prior to Visit: bacitracin zinc (ANTIBIOTIC, BACITRACIN ZINC,) 500 unit/gram ointment Apply 1 application to affected area twice daily. polyethylene glycol 3350 (MIRALAX) 17 gram/dose powder Use 1-2 times daily as needed for constipation. carvedilol (COREG) 3.125 mg tablet Take 1 tablet by mouth twice daily with meals. amiodarone (PACERONE) 200 mg tablet Take 1 tablet by mouth once daily. simvastatin (ZOCOR) 40 mg tablet Take 1 tablet by mouth every morning. isosorbide mononitrate ER (IMDUR) 30 mg 24 hr tablet Take 3 tablets by mouth once daily. pregabalin (LYRICA) 25 mg capsule Take 1 tablet PO daily with an additional 1 tablet PO after dialysis MWF ELIQUIS 5 mg tab(s) TAKE ONE TABLET BY MOUTH TWICE DAILY metoclopramide HCl (REGLAN) 5 mg tablet Take 1 tablet by mouth three times daily. pantoprazole DR (PROTONIX) 40 mg tablet Take 1 tablet by mouth once daily. insulin aspart U-100 (NOVOLOG FLEXPEN U-100 INSULIN) 100 unit/mL inpn Using Sliding Scale: 150-209 1 unit, 210-269 2 units, 270-329 3 units, 330-389 4 units, 390-449 5 units senna (SENNA) 8.6 mg tab Take 8.6 mg by mouth once daily. HYDROcodone-acetaminophen (NORCO) 5-325 mg per tablet Take 1 tablet by mouth every 8 hours as needed. ondansetron (ZOFRAN) 4 mg tablet Take 4 mg by mouth every 8 hours as needed. ipratropium-albuterol (DUONEB) 0.5 mg-3 mg(2.5 mg base)/3 mL nebu Inhale 3 mL as instructed every 4 hours while awake. And prn for wheezing/shortness of breath. budesonide (PULMICORT) 0.5 mg/2 mL nebulizer solution Use 2 mL via nebulizer once daily. INHALE 2 ML BY NEBULIZER OVER 5-15 MINUTES EVERY 12 HOURS. insulin glargine (LANTUS SOLOSTAR U-100 INSULIN) 100 unit/mL (3 mL) inpn Inject 50 Units subcutaneously every morning. insulin glargine (LANTUS SOLOSTAR U-100 INSULIN) 100 unit/mL (3 mL) inpn Inject 36 Units subcutaneously daily at bedtime. nystatin (NYSTOP) powder Apply 1 application to affected area three times daily. guaiFENesin-dextromethorphan (ROBITUSSIN DM) 100-10 mg/5 mL syrup Take 5-10 mL by mouth every 6 hours as needed for Cough. nitroglycerin sublingual (NITROQUICK) 0.4 mg SL tablet Dissolve 1 tablet under the tongue every 5 minutes as needed. OXYGEN, HOME THERAPY, Inhale 2.5 L/min as instructed continuous. 3 L/min when leaves home. No current facility-administered medications on file prior to visit. Social History Social History Marital status: Spouse name: Years of education: Number of children: Social History Main Topics Smoking status: Former Smoker Packs/day: 2.50 Years: 43.00 Types: Cigarettes Start date: 1961 Quit date: 07/07/2004 Smokeless tobacco: Never Used Alcohol use: No Drug use: No Other Topics Concern Caffeine Concern Yes Comment:coffee 1 cup daily Special Diet No Comment:Regular Exercise No Comment:no unable, due to SOB x several months. Social History Narrative Patient and daughter live together. Review of Symptoms REVIEW OF SYSTEMS GENERAL: No weight loss, malaise or fevers RESPIRATORY: See HPI CARDIOVASCULAR: See HPI GI: No nausea, vomiting, or diarrhea SKIN: Negative for lesions, rash, and itching EXAM: BP 104/72 Pulse 60 Temp 36.4 ?C (97.6 ?F) (Temporal Artery) Resp 12 SpO2 95% General Appearance: Well appearing, alert, in no acute distress, well-hydrated, well nourished.. Skin: left 4th toe healed. Left 3rd toe has mild amount of crusting over tip just inferior to nail without erythema or drainage. 2nd toe bandage removed showing stage 1 ulcer on superior aspect without erythema or drainage. Lungs: Lungs clear to auscultation. No wheezing, rhonchi, rales. Heart: RRR without murmur, gallop, or rubs. No ectopy. Abdomen: Normal abdominal exam, Abdomen soft, non-tender. Bowel sounds normal. No masses, organomegaly. Extremities: No deformities, edema, skin discoloration, clubbing or cyanosis. Good capillary refill. . Health Maintenance List DTAP,TDAP,TD(1 - Tdap) due on 1960 COLORECTAL CANCER SCREENING,SEE MODIFIER due on 1991 BONE DENSITY due on 2006 ADULT PREVNAR-13 due on 2006 PNEUMOVAX AGE 65 AND OVER WITH 5YR LOOKBACK(1) due on 2006 DAMION/ARB MED PRESCRIBED due on 06/23/2018 INFLUENZA(1) due on 06/18/2018 STATIN MED ADHERENCE due on 07/18/2018 DIABETES MED ADHERENCE due on 07/18/2018 DILATED RETINAL EXAM due on 10/27/2018 HBA1C due on 11/25/2018 DIABETIC FOOT EXAM due on 01/31/2019 HEMOGLOBIN/HEMATOCRIT due on 05/10/2019 URINE ALBUMIN:CREATININE RATIO due on 05/25/2019 LDL CHOLESTEROL due on 05/25/2019 ANNUAL PCP TEAM CHRONIC DISEASE VISIT due on 06/23/2019 SERUM CREATININE due on 06/30/2019 BP CONTROLLED (<130/80) due on 06/30/2019 Data reviewed Component Latest Ref Rng AND Units 05/25/2018 06/16/2018 06/30/2018 06/30/2018 9:45 AM 9:45 AM Glucose 74 - 99 mg/dL 106 (H) BUN 7 - 21 mg/dL 23 (H) Creatinine 0.58 - 0.96 mg/dL 4.15 (H) 4.16 (H) Sodium 136 - 144 mmol/L 137 Potassium 3.7 - 5.1 mmol/L 4.7 Chloride 97 - 105 mmol/L 93 (L) CO2 22 - 30 mmol/L 32 (H) Anion Gap 9 - 18 mmol/L 12 Calcium 8.5 - 10.2 mg/dL 9.5 eGFR- 13 13 eGFR-All Other Races . 10 10 Cholesterol, Total <200 mg/dL 111 Triglyceride <150 mg/dL 91 HDL Cholesterol >39 mg/dL 38 (L) LDL Cholesterol <100 mg/dL 55 Non HDL Cholesterol <130 mg/dL 73 Fasting Time hrs 12 VLDL Cholesterol <30 mg/dL 18 TC:HDL Ratio <5.10 2.92 LDL:HDL Ratio <2.54 1.45 Creatinine, Ur Random (UCRR) 20 - 300 mg/dL 417.1 (H) Albumin, Urine Random 0.0 - 23.0 mg/L 42.3 (H) Albumin/Creat Ratio 0 - 30 mg/g 10 Hemoglobin A1C 4.3 - 5.6 % 6.8 (H) Estimated Average Glucose mg/dL 148 ALT 7 - 38 U/L 13 16 TSH 0.400 - 5.500 uU/mL 2.110 2.080 Creatinine, Wali 0.7 - 1.4 mg/dL 3.6 (H) ASSESSMENT/PLAN: 1. Uncontrolled type 2 diabetes mellitus with stage 3 chronic kidney disease, with long-term current use of insulin ([facility]) - ICD9: 250.52, 585.3, V58.67, ICD10: E11.22, E11.65, N18.3, Z79.4 (primary diagnosis) improved control - Continue current medications - Blood glucose monitoring on a twice a day schedule - Ophthalmology referral for eval/management of diabetic eye changes - Encouraged regular aerobic exercise and weight loss - Daily Asprin therapy recommended - HGB A1C 2. Atrial fibrillation, unspecified type (HCC) - ICD9: 427.31, ICD10: I48.91 Rate controlled. Continue current regimen. Follow up with cardiology. 3. Coronary artery disease, angina presence unspecified, unspecified vessel or lesion type, unspecified whether rincon or transplanted heart - ICD9: 414.00, ICD10: I25.10 Symptoms present for 3 weeks. Continue nitro PRN for chest pain symptoms. Continue Imdur. Follow up with cardiology. 4. Chronic obstructive pulmonary disease, unspecified COPD type (HCC) - ICD9: 496, ICD10: J44.9 Severe COPD. Continue home oxygen and inhaler regimen. 5. Hypertension - ICD9: 401.9, ICD10: I10 - good control - Continue current medication(s) - Encouraged dietary sodium restriction/DASH diet - Recommended regular aerobic exercise. - Reviewed risks of HTN and principles of treatment - Goal of BP <140/90 6. Gastroesophageal reflux disease, esophagitis presence not specified - ICD9: 530.81, ICD10: K21.9 Controlled on current regimen. 7. Asymptomatic postmenopausal status - ICD9: V49.81, ICD10: Z78.0 Due for repeat DXA scan. - DXA-AXIAL SKELETON 8. ESRD on dialysis (HCC) - ICD9: 585.6, V45.11, ICD10: N18.6, Z99.2 Continue dialysis MWF. MD Jameson Samuels MD 07/05/2018 1:12 PM Signed BONE MINERAL DENSITY PATIENT INSTRUCTIONS Bone mineral density testing measures the amount of calcium in certain parts of your bones. This information determines how strong your bones are. The test is used to detect osteoporosis, a disease in which the bone's mineral content and density are low, increasing a person's risk of fractures. The lumbar spine (lower back) and the hip are the skeletal sites usually examined. For the test, remember that: 1. You cannot take this test if you are . 2. Eat a normal diet on the day of the test. 3. Take your medications as you normally would. 4. DO NOT take calcium supplements (such as Tums) for 24 hours before the test. 5. On the day of the test, leave valuables (jewelry or credit cards) at home. 6. The test should be performed prior to oral, rectal or IV contrast studies, or at least 7 days after any of these studies. For the test, you may be asked to wear a hospital gown. You will lie on your back, on a padded table, in a comfortable position. Generally, you can resume your usual activities immediately. Referring Provider: JAMESON KAMARA) [[id number]] Allergies As of Date: 07/05/2018 Noted Allergy Reaction ASPIRIN 01/20/2018 14 - Other: See Comments Comments: Patient states that she bled out every orifice, sts not allowed to take it at all. Patient states she was bleeding out of nose and mouth after one dose. BACTRIM (SULFAMETHOXAZOLE-TRIMETH*05/17/2017 14 - Other: See Comments Comments: My throat swells up. LATEX 05/17/2017 2 - Rash 9 - Itching Comments: Itching and welts. No wheezing or shortness of breath. PENICILLINS 07/14/2004 2 - Rash 9 - Itching Comments: Tolerated ceftriaxone during 11/2017 admission and cefepime during 12/2017 admission TETRACYCLINE 09/29/2010 2 - Rash 8 - GI Upset Comments: Emesis and diarrhea. ATORVASTATIN 05/17/2017 2 - Rash CODEINE 05/17/2017 14 - Other: See Comments Comments: Numbness DILAUDID (HYDROMORPHONE (BULK)) 05/17/2017 1 - Mental Status Change MEPERIDINE 07/14/2004 PENTAZOCINE 07/14/2004 PIOGLITAZONE 05/17/2017 16 - Unknown PROPOXYPHENE 07/14/2004 Date Reviewed: 07/05/2018 Reviewed by: Sean Han Ma - Fully Assessed Reason for Visit: Recheck [92] Cmt: 4 week follow up DM - weakness - chest discomfort - 2 nitro yesterday at dialysis and 2 nitro today Reason For Visit History Recorded Primary Visit Diagnosis:Uncontrolled type 2 diabetes mellitus with stage 3 chronic kidney disease, with long- term current use of insulin ([facility]) [E11.22, E11.65, N18.3, Z79.4] Other Visit Diagnoses:Atrial fibrillation, unspecified type ([facility]) [I48.91] Coronary artery disease, angina presence unspecified, unspecified vessel or lesion type, unspecified whether rincon or transplanted heart [I25.10] Chronic obstructive pulmonary disease, unspecified COPD type ([facility]) [J44.9] Hypertension [I10] Gastroesophageal reflux disease, esophagitis presence not specified [K21.9] Asymptomatic postmenopausal status [Z78.0] ESRD on dialysis ([facility]) [N18.6, Z99.2] Order(s):DXA-AXIAL SKELETON [[id number]] Order #: [id number] FUTURE HGB A1C [AFCBV9D] Order #: [id number] FUTURE Prescriptions as of 07/05/2018 Sig: BACITRACIN ZINC 500 UNIT/GRAM* Apply 1 application to affect* POLYETHYLENE GLYCOL 3350 17 G* Use 1-2 times daily as needed* CARVEDILOL 3.125 MG TABLET Take 1 tablet by mouth twice * AMIODARONE 200 MG TABLET Take 1 tablet by mouth once d* SIMVASTATIN 40 MG TABLET Take 1 tablet by mouth every * ISOSORBIDE MONONITRATE ER 30 * Take 3 tablets by mouth once * PREGABALIN 25 MG CAPSULE Take 1 tablet PO daily with a* ELIQUIS 5 MG TABLET TAKE ONE TABLET BY MOUTH TWIC* METOCLOPRAMIDE 5 MG TABLET Take 1 tablet by mouth three * PANTOPRAZOLE 40 MG TABLET,DEL* Take 1 tablet by mouth once d* INSULIN ASPART U-100 100 UNI* Using Sliding Scale: 150-209* SENNOSIDES 8.6 MG TABLET Take 8.6 mg by mouth once carlos* HYDROCODONE 5 MG-ACETAMINOPHE* Take 1 tablet by mouth every * ONDANSETRON HCL 4 MG TABLET Take 4 mg by mouth every 8 ho* IPRATROPIUM-ALBUTEROL 0.5 MG-* Inhale 3 mL as instructed leanne* BUDESONIDE 0.5 MG/2 ML SUSPEN* Use 2 mL via nebulizer once d* INSULIN GLARGINE (U-100) 100 * Inject 50 Units subcutaneousl* INSULIN GLARGINE (U-100) 100 * Inject 36 Units subcutaneousl* NYSTATIN 100,000 UNIT/GRAM TO* Apply 1 application to affect* DEXTROMETHORPHAN-GUAIFENESIN * Take 5-10 mL by mouth every 6* NITROGLYCERIN 0.4 MG SUBLINGU* Dissolve 1 tablet under the t* OXYGEN (HOME THERAPY) Inhale 2.5 L/min as instructe* Problem List As Of Date 07/05/2018 Noted Resolved HOCM (hypertrophic obstructive cardiomyopathy) * 01/23/2018 Priority: I More... SVT (supraventricular tachycardia) (HCC) [I47.1] 01/21/2018 More... Carotid artery disease (HCC) [I77.9] 01/22/2018 CAD (coronary artery disease) [I25.10] Priority: E More... Hypertension [I10] Priority: L More... Hyperlipidemia [E78.5] Pneumonia [J18.9] 10/27/2017 More... COPD (chronic obstructive pulmonary disease) (H* Priority: F More... Sleep apnea [G47.30] Priority: I More... HH (hiatus hernia) [K44.9] 01/21/2018 GERD (gastroesophageal reflux disease) [K21.9] Priority: K More... More... Arthritis [M19.90] Numbness and tingling of right leg [R20.0, R20.* 01/21/2018 Depression [F32.9] Atrial fibrillation (HCC) [I48.91] INVALID FOR* Priority: C More... Uncontrolled type 2 diabetes mellitus with stag*INVALID FOR* Priority: H More... More... More... Heart failure, systolic, acute (HCC) [I50.21] INVALID FOR*01/21/2018 More... Obesity [E66.09] INVALID FOR* Priority: M More... Gout [M10.9] Pacemaker [Z95.0] Priority: D More... Chronic combined systolic and diastolic CHF (co*INVALID FOR* Priority: B More... Elevated troponin [R74.8] INVALID FOR*01/22/2018 Priority: G More... Pulmonary hypertension (HCC) [I27.20] INVALID FOR* Oral thrush [B37.0] INVALID FOR*01/21/2018 Hyponatremia [E87.1] INVALID FOR* Priority: J More... Hyperkalemia [E87.5] INVALID FOR*01/22/2018 Priority: J Chest pain in adult [R07.9] INVALID FOR*02/12/2018 Priority: A More... Acute renal failure superimposed on stage 3 chr*INVALID FOR* Priority: A More... Obesity, Class II, BMI 35-39.9 [E66.9] INVALID FOR* ESRD on dialysis (HCC) [N18.6, Z99.2] INVALID FOR* More... Chronic hypoxemic respiratory failure (HCC) [J9*INVALID FOR* Other instructions from your clinician: BONE MINERAL DENSITY PATIENT INSTRUCTIONS Bone mineral density testing measures the amount of calcium in certain parts of your bones. This information determines how strong your bones are. The test is used to detect osteoporosis, a disease in which the bone's mineral content and density are low, increasing a person's risk of fractures. The lumbar spine (lower back) and the hip are the skeletal sites usually examined. For the test, remember that: 1. You cannot take this test if you are . 2. Eat a normal diet on the day of the test. 3. Take your medications as you normally would. 4. DO NOT take calcium supplements (such as Tums) for 24 hours before the test. 5. On the day of the test, leave valuables (jewelry or credit cards) at home. 6. The test should be performed prior to oral, rectal or IV contrast studies, or at least 7 days after any of these studies. For the test, you may be asked to wear a hospital gown. You will lie on your back, on a padded table, in a comfortable position. Generally, you can resume your usual activities immediately. Encounter Status:Closed by JAMESON KAMARA MD on 07/05/18 CREATININE Collected: 06/30/2018 Status: F Source: [place] 9:45 AM [facility] REPOSITORY TYPE CODE TESTS RESULT OUT OF REFERENCE UNITS RANGE LAB CRET 0.58-0.96 mg/dL High Creatinine 4.15 LAB GFRAA eGFR- 13 Amer. LAB GFRNAA . eGFR-All Other Races 10 Result Comment: eGFR (Estimated GFR) Units of measure: mL/min/1.73 meters squared eGFR is derived from the reexpressed MDRD Study equation using the following parameters: serum creatinine, age, gender and race. The creatinine assay has been calibrated to be traceable to IDMS. An eGFR <60 mL/min/1.73m2 for >3 months is consistent with chronic kidney disease. Refer to KDOQI guidelines for clinical interpretation. In patients with unstable renal function, e.g. those with acute kidney injury, the eGFR may not accurately reflect actual GFR. Performed By: #### CRET1 #### [facility] [address] [facility] [phone] ALT Collected: 06/30/2018 Status: F Source: [place] 9:45 AM [facility] REPOSITORY TYPE CODE TESTS RESULT OUT OF RANGE REFERENCE UNITS LAB ALT 7-38 U/L ALT 16 Performed By: #### ALT #### [facility] [address] [facility] [phone] #### TSH #### [facility] [address] [id number] TSH Collected: 06/30/2018 Status: F Source: [place] 9:45 AM [facility] REPOSITORY TYPE CODE TESTS RESULT OUT OF RANGE REFERENCE UNITS LAB TSH 0.400-5.500 uU/mL TSH 2.080 Performed By: #### ALT #### [facility] [address] [facility] [phone] #### TSH #### [facility] [address] [address] BASIC METABOLIC PANL Collected: 06/30/2018 Status: F Source: [place] 9:45 AM [facility] REPOSITORY TYPE CODE TESTS RESULT OUT OF REFERENCE UNITS RANGE LAB GLU 74-99 mg/dL High Glucose 106 Result Comment: The [place] [employer] (ADA) provides guidance for cutoff values for fasting glucose and random glucose. The ADA defines fasting as no caloric intake for at least 8 hours. Fas ting plasma glucose results between 100 to 125 mg/dL indicate increased risk for diabetes (prediabetes). Fasting plasma glucose results greater than or equal to 126 mg/dL meet the criteria for diagnosis of diabetes. In the absence of unequivocal hyperglycemia, results should be confirmed by repeat testing. In a patient with classic symptoms of hyperglycemia or hyperglycemic crisis, random plasma glucose results greater than or equal to 200 mg/dL meet the criteria for diagnosis of diabetes. Reference: Standards of Medical Care in Diabetes 2016, [place] [employer]. Diabetes Care. 2016.39(Suppl 1). LAB BUN 7-21 mg/dL BUN High 23 LAB CRET 0.58-0.96 mg/dL Creatinine High 4.16 LAB NA 136-144 mmol/L Sodium 137 LAB K 3.7-5.1 mmol/L Potassium 4.7 LAB CL 97-105 mmol/L Low Chloride 93 LAB CO2 22-30 mmol/L CO2 High 32 LAB AGAP 9-18 mmol/L Anion Gap 12 LAB CA 8.5-10.2 mg/dL Calcium, Total 9.5 LAB GFRAA eGFR- Amer. 13 LAB GFRNAA . eGFR-All Other Races 10 Result Comment: eGFR (Estimated GFR) Units of measure: mL/min/1.73 meters squared eGFR is derived from the reexpressed MDRD Study equation using the following parameters: serum creatinine, age, gender and race. The creatinine assay has been calibrated to be traceable to IDMS. An eGFR <60 mL/min/1.73m2 for >3 months is consistent with chronic kidney disease. Refer to KDOQI guidelines for clinical interpretation. In patients with unstable renal function, e.g. those with acute kidney injury, the eGFR may not accurately reflect actual GFR. Performed By: #### BMP #### [facility] [address] [facility] [phone] HISTORY PHYSICAL Observed: 06/30/2018 Status: COMPLETED Source: [place] 8:45 AM [facility] REPOSITORY O ID: [id number] Author: Cristiane Tellez ([place]) Service: (none) Author Type: Physician Transport Driver Type: HANDP Filed: 07/01/2018 11:20 AM Note Text: HISTORY AND PHYSICAL EXAMINATION SERVICE DATE: 06/30/2018 SERVICE TIME: 8:46 AM PRIMARY CARE PHYSICIAN: Jameson Kamara MD REASON FOR VISIT: Luz Baca is a 77 year old female who is scheduled for left AV fistula creation at the request of Dr. Michael Hogan for consultation. My final recommendation will be communicated back to the requesting physician by way of shared medical record or letter. 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 Most recent Cr 3.6 (05/20/18). Scheduled for AV fistula creation on 07/06. Denies recent illness, fever or chills. PAST MEDICAL HISTORY Diagnosis Date - Arthritis - Atrial fibrillation ([facility]) - CAD (coronary artery disease) stents x9, defibrillator, CABG. Seeing Dr. Cardona - Cardiac defibrillator in place - Cardiomegaly - Carotid artery disease (HCC) left - Chronic hypoxemic respiratory failure ([facility]) 07/01/2018 - Chronic kidney disease (CKD) stage G3b/A2, moderately decreased glomerular filtration rate (GFR) between 30-44 mL/min/1.73 square meter and albuminuria creatinine ratio between 30-299 mg/g ([facility]) Dr. Martin - COPD (chronic obstructive pulmonary disease) ([facility]) Dr. Cruz - Depression - Diabetes ([facility]) - Diabetic neuropathy ([facility]) - Edema - ESRD (end stage renal disease) on dialysis ([facility]) MW, Dr. Martin - GERD (gastroesophageal reflux disease) - Gout with hyperuricemia - HH (hiatus hernia) - HOCM (hypertrophic obstructive cardiomyopathy) ([facility]) S/P Septal Myectomy in 2003. Now with LVEF 50% and mod/severe pulm HTN. - HTN (hypertension) - Hyperlipidemia - Morbid obesity with BMI of 40.0-44.9, adult ([facility]) - Sleep apnea 2011 not on CPAP, unable to tolerate mask 02/2017 - SVT (supraventricular tachycardia) ([facility]) NSVT and questionable VT in 2003 post op PAST SURGICAL HISTORY Procedure Laterality Date - CABG (1) VEIN GRAFT AND ARTERIAL GRAFT - CHOLECYSTECTOMY HX - DIALYSIS ACCESS SYSTEM - HEART SURGERY HX 07/18/2004 Septal myectomy and CABG x2 (DEBORAH-LAD, SVG-PDA). - HYSTERECTOMY HX - IANDD PERIANAL ABSCESS - PACEMAKER with defib - PAST SURGICAL HISTORY OF left breast nodule removed - PAST SURGICAL HISTORY OF skin lesions removed - STENT PLACEMENT coronary FAMILY HISTORY Problem Relation Age of Onset - Hypertension Mother living at age 93, HTN - Heart Failure Mother NE - Cancer Father age 71, lung cancer - Heart Attack Sister - COPD Brother - Heart Paternal Grandmother - Heart Paternal Grandfather - Heart Sister - Diabetes Sister - Heart Sister - Breast Cancer Sister - Diabetes Sister - Hypertension Brother - Diabetes Brother SOCIAL HISTORY: Social History Marital status: Spouse name: Years of education: Number of children: Social History Main Topics Smoking status: Former Smoker Packs/day: 2.50 Years: 43.00 Types: Cigarettes Start date: 1961 Quit date: 07/07/2004 Smokeless tobacco: Never Used Alcohol use: No Drug use: No Other Topics Concern Caffeine Concern Yes Comment:coffee 1 cup daily Special Diet No Comment:Regular Exercise No Comment:no unable, due to SOB x several months. Social History Narrative Patient and daughter live together. Prior to Admission medications as of 06/30/18 0906 Medication Sig Last Dose Taking bacitracin zinc (ANTIBIOTIC, BACITRACIN ZINC,) 500 unit/gram ointment Apply 1 application to affected area twice daily. Yes polyethylene glycol 3350 (MIRALAX) 17 gram/dose powder Use 1-2 times daily as needed for constipation. Yes carvedilol (COREG) 3.125 mg tablet Take 1 tablet by mouth twice daily with meals. Yes amiodarone (PACERONE) 200 mg tablet Take 1 tablet by mouth once daily. Yes simvastatin (ZOCOR) 40 mg tablet Take 1 tablet by mouth every morning. Yes isosorbide mononitrate ER (IMDUR) 30 mg 24 hr tablet Take 3 tablets by mouth once daily. Yes pregabalin (LYRICA) 25 mg capsule Take 1 tablet PO daily with an additional 1 tablet PO after dialysis MWF Yes ELIQUIS 5 mg tab(s) TAKE ONE TABLET BY MOUTH TWICE DAILY Yes metoclopramide HCl (REGLAN) 5 mg tablet Take 1 tablet by mouth three times daily. Yes pantoprazole DR (PROTONIX) 40 mg tablet Take 1 tablet by mouth once daily. Yes insulin aspart U-100 (NOVOLOG FLEXPEN U-100 INSULIN) 100 unit/mL inpn Using Sliding Scale: 150-209 1 unit, 210-269 2 units, 270- 329 3 units, 330-389 4 units, 390-449 5 units Yes senna (SENNA) 8.6 mg tab Take 8.6 mg by mouth once daily. Yes HYDROcodone-acetaminophen (NORCO) 5-325 mg per tablet Take 1 tablet by mouth every 8 hours as needed. Yes ondansetron (ZOFRAN) 4 mg tablet Take 4 mg by mouth every 8 hours as needed. Yes ipratropium-albuterol (DUONEB) 0.5 mg-3 mg(2.5 mg base)/3 mL nebu Inhale 3 mL as instructed every 4 hours while awake. And prn for wheezing/shortness of breath. Yes budesonide (PULMICORT) 0.5 mg/2 mL nebulizer solution Use 2 mL via nebulizer once daily. INHALE 2 ML BY NEBULIZER OVER 5-15 MINUTES EVERY 12 HOURS. Yes insulin glargine (LANTUS SOLOSTAR U-100 INSULIN) 100 unit/mL (3 mL) inpn Inject 50 Units subcutaneously every morning. Yes insulin glargine (LANTUS SOLOSTAR U-100 INSULIN) 100 unit/mL (3 mL) inpn Inject 36 Units subcutaneously daily at bedtime. Yes nystatin (NYSTOP) powder Apply 1 application to affected area three times daily. Yes guaiFENesin-dextromethorphan (ROBITUSSIN DM) 100-10 mg/5 mL syrup Take 5-10 mL by mouth every 6 hours as needed for Cough. Yes nitroglycerin sublingual (NITROQUICK) 0.4 mg SL tablet Dissolve 1 tablet under the tongue every 5 minutes as needed. Yes OXYGEN, HOME THERAPY, Inhale 2.5 L/min as instructed continuous. 3 L/min when leaves home. Yes No medication comments found. ALLERGIES Allergen Reactions - Aspirin Other: See Comments Patient states that she bled out every orifice, sts not allowed to take it at all. Patient states she was bleeding out of nose and mouth after one dose. - Bactrim [Sulfametho* Other: See Comments My throat swells up. - Latex Rash, Itching Itching and welts. No wheezing or shortness of breath. - Penicillins Rash, Itching Tolerated ceftriaxone during 11/2017 admission and cefepime during 12/2017 admission - Tetracycline Rash, GI Upset Emesis and diarrhea. - Atorvastatin Rash - Codeine Other: See Comments Numbness - Dilaudid [Hydromorp* Mental Status Change - Meperidine - Pentazocine - Pioglitazone Unknown - Propoxyphene REVIEW OF SYSTEMS: PAIN ASSESSMENT: General: No weight loss, malaise or fevers. Neuro: Postive for Impaired Sensorium in feet; No history of TIAs, stroke, headaches, tremors, [employer] tumor, hemiplegia, paraplegia, quadriplegia. Respiratory: COPD, MARLA-no machine; Uses 2.5L all day and night. No history of current cough, dyspnea, bronchitis or pneumonia in the last [address] Cruz with last visit in 06/16/18 at which time he cleared pt for surgery. Per Dr. Cruz's note: Most recent Pulmonary Function Testing shows moderate to severe restrictive ventilatory impairment, normal expiratory flow and normal DLCO. History consistent with chronic bronchitis from cigarette smoking in past, but Pulmonary Function Testing shows NO obstructive ventilatory impairment on 07/16/2004, 11/12/2017 and 03/17/2018. Cardiovascular: H/o bradycardia, Severe pulmonary HTN, ASHD- CABGx3 in 2003, PCIx6 in 2013, PCIx3 in 2014; HCM s/p septal myectomy 2003; HTN-treated, HLD, PAF, CHF-systolic, Ischemic CM s/p ICD 2014, revised 11/2016. Last interrogation 06/02/18. Battery LOS 5yr, 8mo; +palpitaiton, BLE edema; No CP, syncope, DVT/PE. GI: GERD-RX; No PUD or liver disease. No ETOH. : Renal failure-dialysis since 02/2018. Followed by Dr. Martin in [place]; Voids very little with intermittent dysuria. No hematuria. No incontinence. CARE ASSOCIATE: Negative for abnormal vaginal bleeding, abnormal vaginal discharge. : Denies, No LMP recorded. Patient is postmenopausal. Endocrine: Diabetes Mellitus on insulin-using Lantus and Novolog. No thyroid d/o. No steroids in past 30 days. Hematology: Chronic anti-coagulation / platelet meds (Eliquis); No bleeding or clotting d/o. Oncology: No history of CA metastasis, chemo within 30 days, or radiotherapy within 90 days. Has not lost 10% of body wt in 6 months. No history of oncological symptoms or problems. Psych: No history of psychiatric symptoms or problems. Musculoskeletal: B/L knee and ankle pain; No back pain Skin: ulcer on left toe-being treated by [place]. Dr. Hogan's office aware. Pt has skin tear on right forearm. Objective PHYSICAL EXAM: VITALS: BP 123/43 Pulse 71 Temp (Src) 97.8 (Tympanic) Resp 15 Ht 5' 8 (1.73m) Wt 202 lb (91.6kg) SpO2 91[3l nc]% BMI 30.72 kg/(m2). General: Alert and oriented, No acute distress, Obese Skin: Normal color, no rash, no lesions. HEENT: EOM, pupils equal, round and reactive., No carotid bruits Cardiovascular: Normal S1 AND S2, +murmur; no rubs or gallops. No JVD. Pulse regular. Lungs: Normal breath sounds, no wheezes or crackles., No chest deformities or chest wall tenderness. Abdomen: Soft, non-tender, no rigidity., No masses or organomegaly. Extremities: venous stasis changes; BLE +1 non-pitting edema; No deformity Neurological: Normal cognition and motor skills. Gait not assessed pt in wheelchair Pulses: Carotid and radial pulses normal +2. Diagnostic tests reviewed for today's visit: Lab Value Units Date High Low HB 11.5 g/dL 05/10/2018 15.5 11.5 HB 11.8 g/dL 01/10/2018 17.7 12.6 HCT 37.9 % 05/10/2018 46.0 36.0 HCT 35.7 % 01/10/2018 51.0 37.5 WBC 6.97 k/uL 05/10/2018 11.00 3.70 WBC 8.6 k/uL 01/10/2018 10.8 3.4 PLT 163 k/uL 05/10/2018 400 150 PLT 168 k/uL 01/10/2018 379 150 NA 130 mmol/L 02/18/2018 144 136 NA 133 mmol/L 01/10/2018 145 136 K 5.5 mmol/L 02/18/2018 5.1 3.7 K 4.7 mmol/L 01/10/2018 5.1 3.5 GLUC 203 mg/dL 02/18/2018 99 74 GLUC 310 mg/dL 01/10/2018 106 74 BUN 52 mg/dL 02/18/2018 21 7 CREAT 3.15 mg/dL 02/18/2018 0.96 0.58 CREAT 1.63 mg/dL 01/10/2018 1.3 0.6 PTSEC 11.9 sec 02/18/2018 13.0 9.7 INR 1.2 no uni* 02/18/2018 1.3 0.9 APTT 25.0 sec 01/27/2018 32.4 23.0 ALT 13 U/L 05/25/2018 38 7 AST 25 U/L 02/18/2018 35 13 TBILI 0.4 mg/dL 02/18/2018 1.3 0.2 TSH 2.110 uU/mL 05/25/2018 5.500 0.400 Lab Value Units Date High Low HCGQT No results within date range. UHCG No results within date range. HCG, BODY* No results within date range. Lab Value Units Date High Low ABORHD No results within date range. ABSCREEN No results within date range. Hemoglobin A1C (%) Date Value 05/25/2018 6.8 01/26/2018 12.0 01/20/2018 12.3 10/27/2017 16.1 05/17/2017 10.0 Hemoglobin A1c (%) Date Value 10/27/2017 >15 Most recent labs Most recent imaging Most recent EKG: Diagnosis:VENTRICULAR-PACED RHYTHM ABNORMAL ECG , reviewed by supervisor porcelain department. Most recent Echo Most recent PM interrogation All in Epic Assessment ASSESSMENT Patient has the following medical conditions Slow Emergence with anesthesia Obesity-BMI 30.72 H/o bradycardia ASHD-CABGx3 in 2003, PCIx6 in 2013, PCIx3 in 2014 HCM s/p septal myectomy 2003 PAF-taking Eliquis Pulmonary HTN-RVSP 77mg Hg-ECHO 05/12/18 Ischemic CM s/p ICD 2014, revised 11/2016, Last interrogation 06/02/18 Systolic CHF IDDM-A1C 6.8% (05/25/18) COPD/Chronic hypoxemic respiratory failure-O2 dependent (usually 2.5L) HTN-treated HLD-Simvastatin METS: Limited most or all of the time (uses scooter, mobility device) Pt O2 dependent. Gets EDMONDS with walking around house with walker. ASA Class: 4 ANESTHESIA FINDINGS: Intubation History: No history of difficult intubation Significant Anesthesia Considerations: Slow emergence and Difficult IV/Vein Access: yes Airway Exam: General: Normal appearance Mallampati Score is CLASS I ULBT: Class I - Lower incisors can bite the upper lip above the rojas line Neck: Distance from hyoid to mentum during neck extension is at least 3 finger breaths, Pain with neck movement, Short neck Mouth: Normal tongue size and Mouth opening greater than 2 finger breaths Dentition: loose teeth; upper denture Airway History: No history of difficult intubation STOP BANG Score: MARLA does not use CPAP/BiPAP PLAN This patient is optimally prepared for surgery pending Eliquis instructions, ASA recommendation from Dr. Cardona, LABS and Cardiac Risk. Telephone Encounter sent to Dr. Hogan and Dr. Cardona. Note to anesthesia re: Pulmonary HTN with RVSP 77mg Hg. Email sent. CONSULTS: Cardiology Consult for cardiac clearance for ASHD, A fib, HTN, HLD, CM.. see plan above The Following Tests/Procedures Have Been Initiated: Orders Placed This Encounter BASIC METABOLIC PNL POTASSIUM BLD Planned Anesthetic: Per anesthesia choice and block Instructions Given to Patient: Patient given verbal and written preop instructions and voices comprehension and compliance. SIGNATURE: Cristiane Tellez PA-C PATIENT NAME: Luz Franco Keven DATE: June 30, 2018 TIME: 8:45 AM PAGER/CONTACT #: [email or web address] Observed: 06/30/2018 Status: COMPLETED Source: [place] 12:00 AM [facility] OTHER CAMPUS REPOSITORY Telephone (PREANME) LUZ BACA ([id number]) 1940 F Date Time Provider Department 06/30/18 CRISTIANE TELLEZ) PREAN During your visit today, we recorded the following information about you: Cristiane Tellez PA-C 07/01/2018 11:[address] Hogan, Pt for AV fistula on 07/06. She stated she was supposed to hold Eliquis 3 days, but she could not remember who instructed her to do so. Do you need her to hold this? Dr. Cardona, I saw in your note that you wanted pt to restart ASA or Plavix for ASHD. She is not taking ASA. Would you like me to let her know she should be taking ASA 81mg daily? Can you also provide her cardiac risk assessment for surgery? Her last visit with you was on upon arrival to [facility] appt her pulse was 34 BPM-pt was asymptomatic. Rechecked during exam and 71 BPM. Thank you, Cristiane Tellez PA-C Electronically Signed Cristiane Tellez PA-C 07/01/2018 3:36 PM Signed Ideally, she should be on aspirin. She is relatively stable, but has had recent non-STEMI and ongoing chest pain of possible ischemic etiology. Her risk of any type of surgery is at least 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. However, I do not recommend any further studies prior to surgery. Aren Cardona MD (Routing comment) Cristiane Tellez PA-C 07/01/2018 3:[address] Hogan Yes I would like her to hold her eliquis 48 hours prior to surgery but continue her antiplatelet therapy (Routing comment) Cristiane Tellez PA-C 07/01/2018 3:45 PM Signed Spoke with pt's daughter and she stated that pt bleeds out on ASA. She will hold Eliquis [address] Hogan's request. Update re: ASA sent to Dr. Cardona and Dr. Hogan. Cristiane Tellez PA-C Electronically Signed Allergies As of Date: 06/30/2018 Noted Allergy Reaction ASPIRIN 01/20/2018 14 - Other: See Comments Comments: Patient states that she bled out every orifice, sts not allowed to take it at all. Patient states she was bleeding out of nose and mouth after one dose. BACTRIM (SULFAMETHOXAZOLE-TRIMETH*05/17/2017 14 - Other: See Comments Comments: My throat swells up. LATEX 05/17/2017 2 - Rash 9 - Itching Comments: Itching and welts. No wheezing or shortness of breath. PENICILLINS 07/14/2004 2 - Rash 9 - Itching Comments: Tolerated ceftriaxone during 11/2017 admission and cefepime during 12/2017 admission TETRACYCLINE 09/29/2010 2 - Rash 8 - GI Upset Comments: Emesis and diarrhea. ATORVASTATIN 05/17/2017 2 - Rash CODEINE 05/17/2017 14 - Other: See Comments Comments: Numbness DILAUDID (HYDROMORPHONE (BULK)) 05/17/2017 1 - Mental Status Change MEPERIDINE 07/14/2004 PENTAZOCINE 07/14/2004 PIOGLITAZONE 05/17/2017 16 - Unknown PROPOXYPHENE 07/14/2004 Date Reviewed: 06/30/2018 Reviewed by: Cristiane Tellez (Pa) - Fully Assessed Prescriptions as of 06/30/2018 Sig: CLINDAMYCIN HCL 150 MG CAPSULE Take 3 capsules by mouth thre* BACITRACIN ZINC 500 UNIT/GRAM* Apply 1 application to affect* POLYETHYLENE GLYCOL 3350 17 G* Use 1-2 times daily as needed* CARVEDILOL 3.125 MG TABLET Take 1 tablet by mouth twice * AMIODARONE 200 MG TABLET Take 1 tablet by mouth once d* SIMVASTATIN 40 MG TABLET Take 1 tablet by mouth every * ISOSORBIDE MONONITRATE ER 30 * Take 3 tablets by mouth once * PREGABALIN 25 MG CAPSULE Take 1 tablet PO daily with a* ELIQUIS 5 MG TABLET TAKE ONE TABLET BY MOUTH TWIC* METOCLOPRAMIDE 5 MG TABLET Take 1 tablet by mouth three * PANTOPRAZOLE 40 MG TABLET,DEL* Take 1 tablet by mouth once d* INSULIN ASPART U-100 100 UNI* Using Sliding Scale: 150-209* SENNOSIDES 8.6 MG TABLET Take 8.6 mg by mouth once carlos* HYDROCODONE 5 MG-ACETAMINOPHE* Take 1 tablet by mouth every * ONDANSETRON HCL 4 MG TABLET Take 4 mg by mouth every 8 ho* IPRATROPIUM-ALBUTEROL 0.5 MG-* Inhale 3 mL as instructed leanne* BUDESONIDE 0.5 MG/2 ML SUSPEN* Use 2 mL via nebulizer once d* INSULIN GLARGINE (U-100) 100 * Inject 50 Units subcutaneousl* INSULIN GLARGINE (U-100) 100 * Inject 36 Units subcutaneousl* NYSTATIN 100,000 UNIT/GRAM TO* Apply 1 application to affect* DEXTROMETHORPHAN-GUAIFENESIN * Take 5-10 mL by mouth every 6* NITROGLYCERIN 0.4 MG SUBLINGU* Dissolve 1 tablet under the t* OXYGEN (HOME THERAPY) Inhale 2.5 L/min as instructe* Problem List As Of Date 06/30/2018 Noted Resolved HOCM (hypertrophic obstructive cardiomyopathy) * 01/23/2018 Priority: I More... SVT (supraventricular tachycardia) (HCC) [I47.1] 01/21/2018 More... Carotid artery disease (HCC) [I77.9] 01/22/2018 CAD (coronary artery disease) [I25.10] Priority: E More... Hypertension [I10] Priority: L More... Hyperlipidemia [E78.5] Pneumonia [J18.9] 10/27/2017 More... COPD (chronic obstructive pulmonary disease) (H* Priority: F More... Sleep apnea [G47.30] Priority: I More... HH (hiatus hernia) [K44.9] 01/21/2018 GERD (gastroesophageal reflux disease) [K21.9] Priority: K More... More... Arthritis [M19.90] Numbness and tingling of right leg [R20.0, R20.* 01/21/2018 Depression [F32.9] Atrial fibrillation (HCC) [I48.91] INVALID FOR* Priority: C More... Uncontrolled type 2 diabetes mellitus with stag*INVALID FOR* Priority: H More... More... More... Heart failure, systolic, acute (HCC) [I50.21] INVALID FOR*01/21/2018 More... Obesity [E66.09] INVALID FOR* Priority: M More... Gout [M10.9] Pacemaker [Z95.0] Priority: D More... Chronic combined systolic and diastolic CHF (co*INVALID FOR* Priority: B More... Elevated troponin [R74.8] INVALID FOR*01/22/2018 Priority: G More... Pulmonary hypertension (HCC) [I27.20] INVALID FOR* Oral thrush [B37.0] INVALID FOR*01/21/2018 Hyponatremia [E87.1] INVALID FOR* Priority: J More... Hyperkalemia [E87.5] INVALID FOR*01/22/2018 Priority: J Chest pain in adult [R07.9] INVALID FOR*02/12/2018 Priority: A More... Acute renal failure superimposed on stage 3 chr*INVALID FOR* Priority: A More... Obesity, Class II, BMI 35-39.9 [E66.9] INVALID FOR* ESRD on dialysis (HCC) [N18.6, Z99.2] INVALID FOR* More... Encounter Status:Closed by CRISTIANE TELLEZ PA-C on 07/01/18 PROGRESS Observed: 06/28/2018 Status: COMPLETED Source: [place] 11:07 AM [facility] REPOSITORY HNO ID: [id number] Author: Jose C Rodriguez Service: (none) Author Type: Physician Type: Progress Notes Filed: 06/28/2018 11:33 AM Note Text: ? Jose C Rodriguez DPM Department of Podiatry [address] [place] [id number] Dept: [phone] Dept 06/28/2018 Follow Up Podiatric Office Visit: HPI: Luz Baca is a 77 year old female. Patient presents for follow up for ulcer, L 2nd toe. Since her last appointment, new ulcers have formed on 3rd and 4th toes. Home health called office today to inform. They applied Adaptic and wrapped with gauze. Pt's daughter had been applying bacitracin and a band aid to 2nd toe. Patient has no complaints of pain. She denies n/v/f/c. She c/o diarrhea x 2 days, she thinks it may be from antibiotic. She has not yet gotten xray ordered at her [facility]. Jose C Rodriguez DPM PAST MEDICAL HISTORY Diagnosis Date - Arthritis - Atrial fibrillation ([facility]) - CAD (coronary artery disease) stents x9, defibrillator, CABG. Seeing Dr. Cardona - Cardiac defibrillator in place - Cardiomegaly - Carotid artery disease ([facility]) left - Chronic kidney disease (CKD) stage G3b/A2, moderately decreased glomerular filtration rate (GFR) between 30-44 mL/min/1.73 square meter and albuminuria creatinine ratio between 30-299 mg/g ([facility]) Dr. Martin - COPD (chronic obstructive pulmonary disease) ([facility]) Dr. Cruz - Depression - Diabetes ([facility]) - Diabetic neuropathy ([facility]) - Edema - ESRD (end stage renal disease) on dialysis ([facility]) [facility], Dr. Martin - GERD (gastroesophageal reflux disease) - Gout with hyperuricemia - HH (hiatus hernia) - HOCM (hypertrophic obstructive cardiomyopathy) ([facility]) S/P Septal Myectomy in 2003. Now with LVEF 50% and mod/severe pulm HTN. - HTN (hypertension) - Hyperlipidemia - Morbid obesity with BMI of 40.0-44.9, adult ([facility]) - Sleep apnea 2011 not on CPAP, unable to tolerate mask 02/2017 - SVT (supraventricular tachycardia) ([facility]) NSVT and questionable VT in 2004 post op FAMILY HISTORY Problem Relation Age of Onset - Hypertension Mother living at age 93, HTN - Heart Failure Mother NE - Cancer Father age 71, lung cancer - Heart Attack Sister - COPD Brother - Heart Paternal Grandmother - Heart Paternal Grandfather - Heart Sister - Diabetes Sister - Heart Sister - Breast Cancer Sister - Diabetes Sister - Hypertension Brother - Diabetes Brother REVIEW OF SYSTEMS: CONSTITUTIONAL: No fevers, chills, nightsweats, unintended weight loss HEENT: Denies frequent or severe heaches, nasal congestion/sinus symptoms, problematic allergy problems. EYES: No diplopia or blurry vision. CARDIOVASCULAR: No chest pain, dyspnea, palpitations, orthopnea, PND, ankle edema. PULM: No dyspnea, unexplained cough. GI: No dysphagia/odynophagia, problematic reflux, constipation, diarrhea, changes in stool habits, hematochezia, melena. : No new urinary complaints, including dysuria, gross hematuria or pyuria. NEURO: No new balance problems, peripheral weakness/paresthesias or numbness of concern. MUSC-SKEL: No new joint pain, swelling, or erythema. PSY: No concerns regarding depression, anxiety or panic. INTEGUMENTARY: Ulcerations of left foot Physical Exam: Constitutional: Pt is a well developed 77 year old female who is alert, oriented and cooperative Eyes: Following during examination. No redness or drainage. Respiratory: RR normal and nonlabored. Even breathing. No evidence of distress or shortness of breath. Psychology: Patient is engaged during conversation. Normal affect and mood. Does not appear depressed or anxious during encounter. Vascular: Dorsalis pedis and posterior tibial pulses nonpalpable left Capillary Fill time < 5 seconds to digits 1-5 left Skin temperature warm to cool proximal to distal left Hair growth present to digits Neurological: diminished light touch/epicritic sensation Dermatological: Skin appears well hydrated and supple. good color, texture, turgor. Superficial healing ulceration noted to dorsal left 2nd toe and distal aspect of left 2nd and 3rd toes. There is no sore to left 4th toe. No exposed tendon or bone . No signs of infection. Musculoskeletal/Orthopaedic: Patient has no pain to palpation of left foot Radiographs: ordered but not performed ASSESSMENT: (L97.521) Ulcer of toe of left foot, limited to breakdown of skin ([facility]) (primary encounter diagnosis) (I73.9) PAD (peripheral artery disease) ([facility]) (E11.49) Other diabetic neurological complication associated with type 2 diabetes mellitus ([facility]) PLAN: 1. History and physical examination performed. 2. Patient was examined and informed of current findings 3. On exam, there are no ulcerations to left 4th toe and the ulcerations that are present to left 2nd and 3rd appear to be healing with no signs of infection. 4. Continue with local wound care as she is doing. 5. Recommend she continue with antibiotic until rx complete 6. xrays were ordered at last office visit. Recommend she complete 7. Offered 1 week follow-up for close observation but she is unable to make it next week so will have her f/u in 2 weeks 8. She is to present to ed if she has any iessues. Jose C Rodriguez DPM CNOV Observed: 06/28/2018 Status: COMPLETED Source: [place] 10:55 AM [facility] REPOSITORY Office Visit (PODIWS) LUZ BACA ([id number]) 1940 F Date Time Provider Department 06/28/18 10:55 AM JOSE C RODRIGUEZ PODDANIEL During your visit today, we recorded the following information about you: Jose C Rodriguez DPM 06/28/2018 11:33 AM Signed ? Jose C Rodriguez DPM Department of Podiatry [facility] [address] Dept: [phone] Dept 06/28/2018 Follow Up Podiatric Office Visit: HPI: Luz Baca is a 77 year old female. Patient presents for follow up for ulcer, L 2nd toe. Since her last appointment, new ulcers have formed on 3rd and 4th toes. Home health called office today to inform. They applied Adaptic and wrapped with gauze. Pt's daughter had been applying bacitracin and a band aid to 2nd toe. Patient has no complaints of pain. She denies n/v/f/c. She c/o diarrhea x 2 days, she thinks it may be from antibiotic. She has not yet gotten xray ordered at her [facility]. Jose C Rodriguez, DPM PAST MEDICAL HISTORY Diagnosis Date - Arthritis - Atrial fibrillation ([facility]) - CAD (coronary artery disease) stents x9, defibrillator, CABG. Seeing Dr. Cardona - Cardiac defibrillator in place - Cardiomegaly - Carotid artery disease ([facility]) left - Chronic kidney disease (CKD) stage G3b/A2, moderately decreased glomerular filtration rate (GFR) between 30-44 mL/min/1.73 square meter and albuminuria creatinine ratio between 30-299 mg/g ([facility]) Dr. Martin - COPD (chronic obstructive pulmonary disease) ([facility]) Dr. Cruz - Depression - Diabetes ([facility]) - Diabetic neuropathy ([facility]) - Edema - ESRD (end stage renal disease) on dialysis ([facility]) [facility], Dr. Martin - GERD (gastroesophageal reflux disease) - Gout with hyperuricemia - HH (hiatus hernia) - HOCM (hypertrophic obstructive cardiomyopathy) ([facility]) S/P Septal Myectomy in 2003. Now with LVEF 50% and mod/severe pulm HTN. - HTN (hypertension) - Hyperlipidemia - Morbid obesity with BMI of 40.0-44.9, adult ([facility]) - Sleep apnea 2011 not on CPAP, unable to tolerate mask 02/2017 - SVT (supraventricular tachycardia) ([facility]) NSVT and questionable VT in 2003 post op FAMILY HISTORY Problem Relation Age of Onset - Hypertension Mother living at age 93, HTN - Heart Failure Mother NE - Cancer Father age 71, lung cancer - Heart Attack Sister - COPD Brother - Heart Paternal Grandmother - Heart Paternal Grandfather - Heart Sister - Diabetes Sister - Heart Sister - Breast Cancer Sister - Diabetes Sister - Hypertension Brother - Diabetes Brother REVIEW OF SYSTEMS: CONSTITUTIONAL: No fevers, chills, nightsweats, unintended weight loss HEENT: Denies frequent or severe heaches, nasal congestion/sinus symptoms, problematic allergy problems. EYES: No diplopia or blurry vision. CARDIOVASCULAR: No chest pain, dyspnea, palpitations, orthopnea, PND, ankle edema. PULM: No dyspnea, unexplained cough. GI: No dysphagia/odynophagia, problematic reflux, constipation, diarrhea, changes in stool habits, hematochezia, melena. : No new urinary complaints, including dysuria, gross hematuria or pyuria. NEURO: No new balance problems, peripheral weakness/paresthesias or numbness of concern. MUSC-SKEL: No new joint pain, swelling, or erythema. PSY: No concerns regarding depression, anxiety or panic. INTEGUMENTARY: Ulcerations of left foot Physical Exam: Constitutional: Pt is a well developed 77 year old female who is alert, oriented and cooperative Eyes: Following during examination. No redness or drainage. Respiratory: RR normal and nonlabored. Even breathing. No evidence of distress or shortness of breath. Psychology: Patient is engaged during conversation. Normal affect and mood. Does not appear depressed or anxious during encounter. Vascular: Dorsalis pedis and posterior tibial pulses nonpalpable left Capillary Fill time < 5 seconds to digits 1-5 left Skin temperature warm to cool proximal to distal left Hair growth present to digits Neurological: diminished light touch/epicritic sensation Dermatological: Skin appears well hydrated and supple. good color, texture, turgor. Superficial healing ulceration noted to dorsal left 2nd toe and distal aspect of left 2nd and 3rd toes. There is no sore to left 4th toe. No exposed tendon or bone . No signs of infection. Musculoskeletal/Orthopaedic: Patient has no pain to palpation of left foot Radiographs: ordered but not performed ASSESSMENT: (L97.521) Ulcer of toe of left foot, limited to breakdown of skin ([facility]) (primary encounter diagnosis) (I73.9) PAD (peripheral artery disease) ([facility]) (E11.49) Other diabetic neurological complication associated with type 2 diabetes mellitus ([facility]) PLAN: 1. History and physical examination performed. 2. Patient was examined and informed of current findings 3. On exam, there are no ulcerations to left 4th toe and the ulcerations that are present to left 2nd and 3rd appear to be healing with no signs of infection. 4. Continue with local wound care as she is doing. 5. Recommend she continue with antibiotic until rx complete 6. xrays were ordered at last office visit. Recommend she complete 7. Offered 1 week follow-up for close observation but she is unable to make it next week so will have her f/u in 2 weeks 8. She is to present to ed if she has any iessues. SONI Marte RN 06/28/2018 11:33 AM Addendum Apply bacitracin and a band aid daily to all wounds on L 2- 4 toes. Referring Provider: JOSE C RODRIGUEZ [[id number]] Allergies As of Date: 06/28/2018 Noted Allergy Reaction ASPIRIN 01/20/2018 14 - Other: See Comments Comments: Patient states that she bled out every orifice, sts not allowed to take it at all. Patient states she was bleeding out of nose and mouth after one dose. BACTRIM (SULFAMETHOXAZOLE-TRIMETH*05/17/2017 14 - Other: See Comments Comments: My throat swells up. LATEX 05/17/2017 2 - Rash 9 - Itching Comments: Itching and welts. No wheezing or shortness of breath. PENICILLINS 07/14/2004 2 - Rash 9 - Itching Comments: Tolerated ceftriaxone during 11/2017 admission and cefepime during 12/2017 admission TETRACYCLINE 09/29/2010 2 - Rash 8 - GI Upset Comments: Emesis and diarrhea. ATORVASTATIN 05/17/2017 2 - Rash CODEINE 05/17/2017 14 - Other: See Comments Comments: Numbness DILAUDID (HYDROMORPHONE (BULK)) 05/17/2017 1 - Mental Status Change MEPERIDINE 07/14/2004 PENTAZOCINE 07/14/2004 PIOGLITAZONE 05/17/2017 16 - Unknown PROPOXYPHENE 07/14/2004 Date Reviewed: 06/28/2018 Reviewed by: Katie Gonzalez RN - Fully Assessed Reason for Visit: Follow Up [171] Primary Visit Diagnosis:Ulcer of toe of left foot, limited to breakdown of skin ([facility]) [L97.521] Other Visit Diagnoses:PAD (peripheral artery disease) ([facility]) [I73.9] Other diabetic neurological complication associated with type 2 diabetes mellitus ([facility]) [E11.49] Prescriptions as of 06/28/2018 Sig: CLINDAMYCIN HCL 150 MG CAPSULE Take 3 capsules by mouth thre* BACITRACIN ZINC 500 UNIT/GRAM* Apply 1 application to affect* POLYETHYLENE GLYCOL 3350 17 G* Use 1-2 times daily as needed* CARVEDILOL 3.125 MG TABLET Take 1 tablet by mouth twice * AMIODARONE 200 MG TABLET Take 1 tablet by mouth once d* SIMVASTATIN 40 MG TABLET Take 1 tablet by mouth every * ISOSORBIDE MONONITRATE ER 30 * Take 3 tablets by mouth once * PREGABALIN 25 MG CAPSULE Take 1 tablet PO daily with a* ELIQUIS 5 MG TABLET TAKE ONE TABLET BY MOUTH TWIC* METOCLOPRAMIDE 5 MG TABLET Take 1 tablet by mouth three * PANTOPRAZOLE 40 MG TABLET,DEL* Take 1 tablet by mouth once d* INSULIN ASPART U-100 100 UNI* Using Sliding Scale: 150-209* SENNOSIDES 8.6 MG TABLET Take 8.6 mg by mouth once carlos* HYDROCODONE 5 MG-ACETAMINOPHE* Take 1 tablet by mouth every * TRAZODONE 50 MG TABLET Take 50 mg by mouth daily at * ONDANSETRON HCL 4 MG TABLET Take 4 mg by mouth every 8 ho* IPRATROPIUM-ALBUTEROL 0.5 MG-* Inhale 3 mL as instructed leanne* BUDESONIDE 0.5 MG/2 ML SUSPEN* Use 2 mL via nebulizer once d* INSULIN GLARGINE (U-100) 100 * Inject 50 Units subcutaneousl* INSULIN GLARGINE (U-100) 100 * Inject 36 Units subcutaneousl* NYSTATIN 100,000 UNIT/GRAM TO* Apply 1 application to affect* DEXTROMETHORPHAN-GUAIFENESIN * Take 5-10 mL by mouth every 6* NITROGLYCERIN 0.4 MG SUBLINGU* Dissolve 1 tablet under the t* OXYGEN (HOME THERAPY) Inhale 2.5 L/min as instructe* Problem List As Of Date 06/28/2018 Noted Resolved HOCM (hypertrophic obstructive cardiomyopathy) * 01/23/2018 Priority: I More... SVT (supraventricular tachycardia) (HCC) [I47.1] 01/21/2018 More... Carotid artery disease (HCC) [I77.9] 01/22/2018 CAD (coronary artery disease) [I25.10] Priority: E More... Hypertension [I10] Priority: L More... Hyperlipidemia [E78.5] Pneumonia [J18.9] 10/27/2017 More... COPD (chronic obstructive pulmonary disease) (H* Priority: F More... Sleep apnea [G47.30] Priority: I More... HH (hiatus hernia) [K44.9] 01/21/2018 GERD (gastroesophageal reflux disease) [K21.9] Priority: K More... More... Arthritis [M19.90] Numbness and tingling of right leg [R20.0, R20.* 01/21/2018 Depression [F32.9] Atrial fibrillation (HCC) [I48.91] INVALID FOR* Priority: C More... Uncontrolled type 2 diabetes mellitus with stag*INVALID FOR* Priority: H More... More... More... Heart failure, systolic, acute (HCC) [I50.21] INVALID FOR*01/21/2018 More... Obesity [E66.09] INVALID FOR* Priority: M More... Gout [M10.9] Pacemaker [Z95.0] Priority: D More... Chronic combined systolic and diastolic CHF (co*INVALID FOR* Priority: B More... Elevated troponin [R74.8] INVALID FOR*01/22/2018 Priority: G More... Pulmonary hypertension (HCC) [I27.20] INVALID FOR* Oral thrush [B37.0] INVALID FOR*01/21/2018 Hyponatremia [E87.1] INVALID FOR* Priority: J More... Hyperkalemia [E87.5] INVALID FOR*01/22/2018 Priority: J Chest pain in adult [R07.9] INVALID FOR*02/12/2018 Priority: A More... Acute renal failure superimposed on stage 3 chr*INVALID FOR* Priority: A More... Obesity, Class II, BMI 35-39.9 [E66.9] INVALID FOR* ESRD on dialysis (HCC) [N18.6, Z99.2] INVALID FOR* More... Other instructions from your clinician: Apply bacitracin and a band aid daily to all wounds on L 2-4 toes. Disposition: Return in about 2 weeks (around 07/12/2018) for ulcers, L toes. Follow-up and Disposition History Recorded Encounter Status:Closed by JOSE C RODRIGUEZ DPM on 06/28/18 PROGRESS Observed: 06/24/2018 Status: COMPLETED Source: [place] 4:46 PM [facility] REPOSIT[facility] HNO ID: [id number] Author: Katie Gonzalez RN Service: (none) Author Type: (none) Type: Progress Notes Filed: 06/26/2018 12:01 PM Note Text: Amerigel applied to ulcers of L 2nd and 3rd toes. Wrapped with nonadherent gauze and coban. Per Dr. Rodriguez, Luz provided with a post op shoe, size S, and instructed/educated in its application, wear, and care. All questions were answered, and patient was able to demonstrate competence with the necessary skills to utilize the above equipment. Katie Gonzalez RN PROGRESS Observed: 06/24/2018 Status: COMPLETED Source: [place] 4:14 PM [facility] REPOSITORY HNO ID: [id number] Author: Jose C Rodriguez Service: (none) Author Type: Physician Type: Progress Notes Filed: 06/26/2018 12:01 PM Note Text: ? Jose C Rodriguez DPM Department of Podiatry [address] [place] [id number] Dept: [phone] Dept 06/24/2018 Established Podiatric Office Visit: HPI: Luz Baca is a 77 year old female. Patient presents with:L 2nd toe ulcer for the past 3 days. She has been applying antibiotic bacitracin and a band aid. Patient complains of pain. Pain is rated at 5/10, and described as aching. She is unsure what caused this ulceration. She has been wearing crocs lately. Jos eC Rodriguez DPM PCP: Jameson Kamara MD PAST MEDICAL HISTORY Diagnosis Date - Arthritis - Atrial fibrillation (HCC) - CAD (coronary artery disease) stents x9, defibrillator, CABG. Seeing Dr. Cardona - Cardiac defibrillator in place - Cardiomegaly - Carotid artery disease (HCC) left - Chronic kidney disease (CKD) stage G3b/A2, moderately decreased glomerular filtration rate (GFR) between 30-44 mL/min/1.73 square meter and albuminuria creatinine ratio between 30-299 mg/g ([facility]) Dr. Martin - COPD (chronic obstructive pulmonary disease) ([facility]) Dr. Cruz - Depression - Diabetes ([facility]) - Diabetic neuropathy ([facility]) - Edema - ESRD (end stage renal disease) on dialysis ([facility]) [facility], Dr. Martin - GERD (gastroesophageal reflux disease) - Gout with hyperuricemia - HH (hiatus hernia) - HOCM (hypertrophic obstructive cardiomyopathy) ([facility]) S/P Septal Myectomy in 2003. Now with LVEF 50% and mod/severe pulm HTN. - HTN (hypertension) - Hyperlipidemia - Morbid obesity with BMI of 40.0-44.9, adult ([facility]) - Sleep apnea 2011 not on CPAP, unable to tolerate mask 02/2017 - SVT (supraventricular tachycardia) ([facility]) NSVT and questionable VT in 2003 post op Current Outpatient Prescriptions: clindamycin (CLEOCIN) 150 mg capsule Take 3 capsules by mouth three times daily for 7 days. bacitracin zinc (ANTIBIOTIC, BACITRACIN ZINC,) 500 unit/gram ointment Apply 1 application to affected area twice daily. polyethylene glycol 3350 (MIRALAX) 17 gram/dose powder Use 1-2 times daily as needed for constipation. carvedilol (COREG) 3.125 mg tablet Take 1 tablet by mouth twice daily with meals. amiodarone (PACERONE) 200 mg tablet Take 1 tablet by mouth once daily. simvastatin (ZOCOR) 40 mg tablet Take 1 tablet by mouth every morning. isosorbide mononitrate ER (IMDUR) 30 mg 24 hr tablet Take 3 tablets by mouth once daily. pregabalin (LYRICA) 25 mg capsule Take 1 tablet PO daily with an additional 1 tablet PO after dialysis MW ELIQUIS 5 mg tab(s) TAKE ONE TABLET BY MOUTH TWICE DAILY metoclopramide HCl (REGLAN) 5 mg tablet Take 1 tablet by mouth three times daily. pantoprazole DR (PROTONIX) 40 mg tablet Take 1 tablet by mouth once daily. insulin aspart U-100 (NOVOLOG FLEXPEN U-100 INSULIN) 100 unit/mL inpn Using Sliding Scale: 150-209 1 unit, 210-269 2 units, 270- 329 3 units, 330-389 4 units, 390-449 5 units senna (SENNA) 8.6 mg tab Take 8.6 mg by mouth once daily. HYDROcodone-acetaminophen (NORCO) 5-325 mg per tablet Take 1 tablet by mouth every 8 hours as needed. traZODone (DESYREL) 50 mg tablet Take 50 mg by mouth daily at bedtime. ondansetron (ZOFRAN) 4 mg tablet Take 4 mg by mouth every 8 hours as needed. ipratropium-albuterol (DUONEB) 0.5 mg-3 mg(2.5 mg base)/3 mL nebu Inhale 3 mL as instructed every 4 hours while awake. And prn for wheezing/shortness of breath. budesonide (PULMICORT) 0.5 mg/2 mL nebulizer solution Use 2 mL via nebulizer once daily. INHALE 2 ML BY NEBULIZER OVER 5-15 MINUTES EVERY 12 HOURS. insulin glargine (LANTUS SOLOSTAR U-100 INSULIN) 100 unit/mL (3 mL) inpn Inject 50 Units subcutaneously every morning. insulin glargine (LANTUS SOLOSTAR U-100 INSULIN) 100 unit/mL (3 mL) inpn Inject 36 Units subcutaneously daily at bedtime. nystatin (NYSTOP) powder Apply 1 application to affected area three times daily. guaiFENesin-dextromethorphan (ROBITUSSIN DM) 100-10 mg/5 mL syrup Take 5-10 mL by mouth every 6 hours as needed for Cough. nitroglycerin sublingual (NITROQUICK) 0.4 mg SL tablet Dissolve 1 tablet under the tongue every 5 minutes as needed. OXYGEN, HOME THERAPY, Inhale 2.5 L/min as instructed continuous. 3 L/min when leaves home. No current facility-administered medications for this visit. ALLERGIES Allergen Reactions - Aspirin Other: See Comments Patient states that she bled out every orifice, sts not allowed to take it at all. Patient states she was bleeding out of nose and mouth after one dose. - Bactrim [Sulfametho* Other: See Comments My throat swells up. - Latex Rash, Itching Itching and welts. No wheezing or shortness of breath. - Penicillins Rash, Itching Tolerated ceftriaxone during 11/2017 admission and cefepime during 12/2017 admission - Tetracycline Rash, GI Upset Emesis and diarrhea. - Atorvastatin Rash - Codeine Other: See Comments Numbness - Dilaudid [Hydromorp* Mental Status Change - Meperidine - Pentazocine - Pioglitazone Unknown - Propoxyphene PAST SURGICAL HISTORY Procedure Laterality Date - CHOLECYSTECTOMY HX - DIALYSIS ACCESS SYSTEM - HEART SURGERY HX 07/18/2004 Septal myectomy and CABG x2 ([facility], SVG-PDA). - HYSTERECTOMY HX - IANDD PERIANAL ABSCESS - PACEMAKER with defib - PAST SURGICAL HISTORY OF left breast nodule removed - PAST SURGICAL HISTORY OF skin lesions removed FAMILY HISTORY Problem Relation Age of Onset - Hypertension Mother living at age 93, HTN - Heart Failure Mother NE - Cancer Father age 71, lung cancer - Heart Attack Sister - COPD Brother - Heart Paternal Grandmother - Heart Paternal Grandfather - Heart Sister - Diabetes Sister - Heart Sister - Breast Cancer Sister - Diabetes Sister - Hypertension Brother - Diabetes Brother Social History Marital status: Spouse name: Years of education: Number of children: Social History Main Topics Smoking status: Former Smoker Packs/day: 2.50 Years: 43.00 Types: Cigarettes Start date: 1961 Quit date: 07/07/2004 Smokeless tobacco: Never Used Alcohol use: No Drug use: No Other Topics Concern Caffeine Concern Yes Comment:coffee 1 cup daily Special Diet No Comment:Regular Exercise No Comment:no unable, due to SOB x several months. Social History Narrative Patient and daughter live together. REVIEW OF SYSTEMS: CONSTITUTIONAL: No fevers, chills, nightsweats, unintended weight loss HEENT: Denies frequent or severe heaches, nasal congestion/sinus symptoms, problematic allergy problems. EYES: No diplopia or blurry vision. CARDIOVASCULAR: No chest pain, dyspnea, palpitations, orthopnea, PND, ankle edema. PULM: No dyspnea, unexplained cough. GI: No dysphagia/odynophagia, problematic reflux, constipation, diarrhea, changes in stool habits, hematochezia, melena. : No new urinary complaints, including dysuria, gross hematuria or pyuria. NEURO: No new balance problems, peripheral weakness/paresthesias or numbness of concern. MUSC-SKEL: No new joint pain, swelling, or erythema. PSY: No concerns regarding depression, anxiety or panic. INTEGUMENTARY: No new skin changes (rash, new or changing mole, new growth) Physical Exam: Constitutional: Pt is a well developed 77 year old female who is alert, oriented and cooperative Eyes: Following during examination. No redness or drainage. Respiratory: RR normal and nonlabored. Even breathing. No evidence of distress or shortness of breath. Psychology: Patient is engaged during conversation. Normal affect and mood. Does not appear depressed or anxious during encounter. Vascular: Dorsalis pedis and posterior tibial pulses nonpalpable b/l Capillary Fill time < 7 seconds to digits 1-5 b/l Skin temperature warm to cool proximal to distal b/l Hair growth decreased to digits Neurological: diminished light touch/epicritic sensation Dermatological: Nails 1-5 b/l appear Normal. Webspaces clean and dry 1-4 b/l. Skin appears well hydrated and supple. good color, texture, turgor. Superficial ulceration is present to left 2nd and left 3rd toe. There is no exposed tendon, capsule or bone. There are no signs of infection. Radiographs: ordered ASSESSMENT: (L97.521) Ulcer of toe of left foot, limited to breakdown of skin ([facility]) (primary encounter diagnosis) (I73.9) PAD (peripheral artery disease) ([facility]) PLAN: 1. History and physical examination performed. 2. Discussed ulceration of left 2nd and 3rd toe. Superficial debridement of fibrotic slough was performed of left 2nd and 3rd toe with tissue nippers. All nonviable tissue was debrided. Recommend continued bacitracin and surgical shoe. Will order baseline xray. No signs of infection. No need for antibiotic 3. Will have patient f/u on Wednesday for close evaluation. If wounds change in appearance, develop redness or drainage or develop necrotic changes, she is to present to ed. Jose C Rodriguez DPM I agree with the Chief Complaint, ROS, and Past Histories independently gathered by the clinical application support engineer and the remaining scribed note accurately describes my personal service to the patient. Jose C Rodriguez DPM CNOV Observed: 06/24/2018 Status: COMPLETED Source: [place] 4:10 PM [facility] REPOSITORY Office Visit (PODIWS) LUZ BACA ([id number]) 1940 F Date Time Provider Department 06/24/18 4:10 PM JOSE C RODRIGUEZ PODIWS During your visit today, we recorded the following information about you: Jose C Rodriguez DPM 06/26/2018 12:01 PM Signed ? Jose C Rodriguez DPM Department of Podiatry [address] [facility] [address] Dept: [phone] Dept 06/24/2018 Established Podiatric Office Visit: HPI: Luz Baca is a 77 year old female. Patient presents with:L 2nd toe ulcer for the past 3 days. She has been applying antibiotic bacitracin and a band aid. Patient complains of pain. Pain is rated at 5/10, and described as aching. She is unsure what caused this ulceration. She has been wearing crocs lately. Jose C Rodriguez DPM PCP: Jameson Kamara MD PAST MEDICAL HISTORY Diagnosis Date - Arthritis - Atrial fibrillation ([facility]) - CAD (coronary artery disease) stents x9, defibrillator, CABG. Seeing Dr. Cardona - Cardiac defibrillator in place - Cardiomegaly - Carotid artery disease ([facility]) left - Chronic kidney disease (CKD) stage G3b/A2, moderately decreased glomerular filtration rate (GFR) between 30-44 mL/min/1.73 square meter and albuminuria creatinine ratio between 30-299 mg/g ([facility]) Dr. Martin - COPD (chronic obstructive pulmonary disease) ([facility]) Dr. Cruz - Depression - Diabetes ([facility]) - Diabetic neuropathy ([facility]) - Edema - ESRD (end stage renal disease) on dialysis ([facility]) [facility], Dr. Martin - GERD (gastroesophageal reflux disease) - Gout with hyperuricemia - HH (hiatus hernia) - HOCM (hypertrophic obstructive cardiomyopathy) ([facility]) S/P Septal Myectomy in 2003. Now with LVEF 50% and mod/severe pulm HTN. - HTN (hypertension) - Hyperlipidemia - Morbid obesity with BMI of 40.0-44.9, adult ([facility]) - Sleep apnea 2011 not on CPAP, unable to tolerate mask 02/2017 - SVT (supraventricular tachycardia) ([facility]) NSVT and questionable VT in 2003 post op Current Outpatient Prescriptions: clindamycin (CLEOCIN) 150 mg capsule Take 3 capsules by mouth three times daily for 7 days. bacitracin zinc (ANTIBIOTIC, BACITRACIN ZINC,) 500 unit/gram ointment Apply 1 application to affected area twice daily. polyethylene glycol 3350 (MIRALAX) 17 gram/dose powder Use 1-2 times daily as needed for constipation. carvedilol (COREG) 3.125 mg tablet Take 1 tablet by mouth twice daily with meals. amiodarone (PACERONE) 200 mg tablet Take 1 tablet by mouth once daily. simvastatin (ZOCOR) 40 mg tablet Take 1 tablet by mouth every morning. isosorbide mononitrate ER (IMDUR) 30 mg 24 hr tablet Take 3 tablets by mouth once daily. pregabalin (LYRICA) 25 mg capsule Take 1 tablet PO daily with an additional 1 tablet PO after dialysis MWF ELIQUIS 5 mg tab(s) TAKE ONE TABLET BY MOUTH TWICE DAILY metoclopramide HCl (REGLAN) 5 mg tablet Take 1 tablet by mouth three times daily. pantoprazole DR (PROTONIX) 40 mg tablet Take 1 tablet by mouth once daily. insulin aspart U-100 (NOVOLOG FLEXPEN U-100 INSULIN) 100 unit/mL inpn Using Sliding Scale: 150-209 1 unit, 210-269 2 units, 270-329 3 units, 330-389 4 units, 390-449 5 units senna (SENNA) 8.6 mg tab Take 8.6 mg by mouth once daily. HYDROcodone-acetaminophen (NORCO) 5-325 mg per tablet Take 1 tablet by mouth every 8 hours as needed. traZODone (DESYREL) 50 mg tablet Take 50 mg by mouth daily at bedtime. ondansetron (ZOFRAN) 4 mg tablet Take 4 mg by mouth every 8 hours as needed. ipratropium-albuterol (DUONEB) 0.5 mg-3 mg(2.5 mg base)/3 mL nebu Inhale 3 mL as instructed every 4 hours while awake. And prn for wheezing/shortness of breath. budesonide (PULMICORT) 0.5 mg/2 mL nebulizer solution Use 2 mL via nebulizer once daily. INHALE 2 ML BY NEBULIZER OVER 5-15 MINUTES EVERY 12 HOURS. insulin glargine (LANTUS SOLOSTAR U-100 INSULIN) 100 unit/mL (3 mL) inpn Inject 50 Units subcutaneously every morning. insulin glargine (LANTUS SOLOSTAR U-100 INSULIN) 100 unit/mL (3 mL) inpn Inject 36 Units subcutaneously daily at bedtime. nystatin (NYSTOP) powder Apply 1 application to affected area three times daily. guaiFENesin-dextromethorphan (ROBITUSSIN DM) 100-10 mg/5 mL syrup Take 5-10 mL by mouth every 6 hours as needed for Cough. nitroglycerin sublingual (NITROQUICK) 0.4 mg SL tablet Dissolve 1 tablet under the tongue every 5 minutes as needed. OXYGEN, HOME THERAPY, Inhale 2.5 L/min as instructed continuous. 3 L/min when leaves home. No current facility-administered medications for this visit. ALLERGIES Allergen Reactions - Aspirin Other: See Comments Patient states that she bled out every orifice, sts not allowed to take it at all. Patient states she was bleeding out of nose and mouth after one dose. - Bactrim [Sulfametho* Other: See Comments My throat swells up. - Latex Rash, Itching Itching and welts. No wheezing or shortness of breath. - Penicillins Rash, Itching Tolerated ceftriaxone during 11/2017 admission and cefepime during 12/2017 admission - Tetracycline Rash, GI Upset Emesis and diarrhea. - Atorvastatin Rash - Codeine Other: See Comments Numbness - Dilaudid [Hydromorp* Mental Status Change - Meperidine - Pentazocine - Pioglitazone Unknown - Propoxyphene PAST SURGICAL HISTORY Procedure Laterality Date - CHOLECYSTECTOMY HX - DIALYSIS ACCESS SYSTEM - HEART SURGERY HX 07/18/2004 Septal myectomy and CABG x2 (DEBORAH-LAD, SVG-PDA). - HYSTERECTOMY HX - IANDD PERIANAL ABSCESS - PACEMAKER with defib - PAST SURGICAL HISTORY OF left breast nodule removed - PAST SURGICAL HISTORY OF skin lesions removed FAMILY HISTORY Problem Relation Age of Onset - Hypertension Mother living at age 93, HTN - Heart Failure Mother NE - Cancer Father age 71, lung cancer - Heart Attack Sister - COPD Brother - Heart Paternal Grandmother - Heart Paternal Grandfather - Heart Sister - Diabetes Sister - Heart Sister - Breast Cancer Sister - Diabetes Sister - Hypertension Brother - Diabetes Brother Social History Marital status: Spouse name: Years of education: Number of children: Social History Main Topics Smoking status: Former Smoker Packs/day: 2.50 Years: 43.00 Types: Cigarettes Start date: 1961 Quit date: 07/07/2004 Smokeless tobacco: Never Used Alcohol use: No Drug use: No Other Topics Concern Caffeine Concern Yes Comment:coffee 1 cup daily Special Diet No Comment:Regular Exercise No Comment:no unable, due to SOB x several months. Social History Narrative Patient and daughter live together. REVIEW OF SYSTEMS: CONSTITUTIONAL: No fevers, chills, nightsweats, unintended weight loss HEENT: Denies frequent or severe heaches, nasal congestion/sinus symptoms, problematic allergy problems. EYES: No diplopia or blurry vision. CARDIOVASCULAR: No chest pain, dyspnea, palpitations, orthopnea, PND, ankle edema. PULM: No dyspnea, unexplained cough. GI: No dysphagia/odynophagia, problematic reflux, constipation, diarrhea, changes in stool habits, hematochezia, melena. : No new urinary complaints, including dysuria, gross hematuria or pyuria. NEURO: No new balance problems, peripheral weakness/paresthesias or numbness of concern. MUSC-SKEL: No new joint pain, swelling, or erythema. PSY: No concerns regarding depression, anxiety or panic. INTEGUMENTARY: No new skin changes (rash, new or changing mole, new growth) Physical Exam: Constitutional: Pt is a well developed 77 year old female who is alert, oriented and cooperative Eyes: Following during examination. No redness or drainage. Respiratory: RR normal and nonlabored. Even breathing. No evidence of distress or shortness of breath. Psychology: Patient is engaged during conversation. Normal affect and mood. Does not appear depressed or anxious during encounter. Vascular: Dorsalis pedis and posterior tibial pulses nonpalpable b/l Capillary Fill time < 7 seconds to digits 1-5 b/l Skin temperature warm to cool proximal to distal b/l Hair growth decreased to digits Neurological: diminished light touch/epicritic sensation Dermatological: Nails 1-5 b/l appear Normal. Webspaces clean and dry 1-4 b/l. Skin appears well hydrated and supple. good color, texture, turgor. Superficial ulceration is present to left 2nd and left 3rd toe. There is no exposed tendon, capsule or bone. There are no signs of infection. Radiographs: ordered ASSESSMENT: (L97.521) Ulcer of toe of left foot, limited to breakdown of skin ([facility]) (primary encounter diagnosis) (I73.9) PAD (peripheral artery disease) ([facility]) PLAN: 1. History and physical examination performed. 2. Discussed ulceration of left 2nd and 3rd toe. Superficial debridement of fibrotic slough was performed of left 2nd and 3rd toe with tissue nippers. All nonviable tissue was debrided. Recommend continued bacitracin and surgical shoe. Will order baseline xray. No signs of infection. No need for antibiotic 3. Will have patient f/u on Wednesday for close evaluation. If wounds change in appearance, develop redness or drainage or develop necrotic changes, she is to present to ed. Jose C Rodriguez DPM I agree with the Chief Complaint, ROS, and Past Histories independently gathered by the clinical application support engineer and the remaining scribed note accurately describes my personal service to the patient. SONI Marte RN 06/26/2018 12:01 PM Signed Amerigel applied to ulcers of L 2nd and 3rd toes. Wrapped with nonadherent gauze and coban. Per Smitha Hayesith provided with a post op shoe, size S, and instructed/educated in its application, wear, and care. All questions were answered, and patient was able to demonstrate competence with the necessary skills to utilize the above equipment. Katie Gonzalez RN Referring Provider: JOSE C RODRIGUEZ [[id number]] Allergies As of Date: 06/24/2018 Noted Allergy Reaction ASPIRIN 01/20/2018 14 - Other: See Comments Comments: Patient states that she bled out every orifice, sts not allowed to take it at all. Patient states she was bleeding out of nose and mouth after one dose. BACTRIM (SULFAMETHOXAZOLE-TRIMETH*05/17/2017 14 - Other: See Comments Comments: My throat swells up. LATEX 05/17/2017 2 - Rash 9 - Itching Comments: Itching and welts. No wheezing or shortness of breath. PENICILLINS 07/14/2004 2 - Rash 9 - Itching Comments: Tolerated ceftriaxone during 11/2017 admission and cefepime during 12/2017 admission TETRACYCLINE 09/29/2010 2 - Rash 8 - GI Upset Comments: Emesis and diarrhea. ATORVASTATIN 05/17/2017 2 - Rash CODEINE 05/17/2017 14 - Other: See Comments Comments: Numbness DILAUDID (HYDROMORPHONE (BULK)) 05/17/2017 1 - Mental Status Change MEPERIDINE 07/14/2004 PENTAZOCINE 07/14/2004 PIOGLITAZONE 05/17/2017 16 - Unknown PROPOXYPHENE 07/14/2004 Date Reviewed: 06/24/2018 Reviewed by: Katie Gonzalez RN - Fully Assessed Reason for Visit: Follow Up [171] Primary Visit Diagnosis:Ulcer of toe of left foot, limited to breakdown of skin ([facility]) [L97.521] Other Visit Diagnosis:PAD (peripheral artery disease) ([facility]) [I73.9] Order(s):XR FOOT GENERAL 3V AP/LAT/OBL LT [[id number]] Order #: [id number] FUTURE Prescriptions as of 06/24/2018 Sig: CLINDAMYCIN HCL 150 MG CAPSULE Take 3 capsules by mouth thre* BACITRACIN ZINC 500 UNIT/GRAM* Apply 1 application to affect* POLYETHYLENE GLYCOL 3350 17 G* Use 1-2 times daily as needed* CARVEDILOL 3.125 MG TABLET Take 1 tablet by mouth twice * AMIODARONE 200 MG TABLET Take 1 tablet by mouth once d* SIMVASTATIN 40 MG TABLET Take 1 tablet by mouth every * ISOSORBIDE MONONITRATE ER 30 * Take 3 tablets by mouth once * PREGABALIN 25 MG CAPSULE Take 1 tablet PO daily with a* ELIQUIS 5 MG TABLET TAKE ONE TABLET BY MOUTH TWIC* METOCLOPRAMIDE 5 MG TABLET Take 1 tablet by mouth three * PANTOPRAZOLE 40 MG TABLET,DEL* Take 1 tablet by mouth once d* INSULIN ASPART U-100 100 UNI* Using Sliding Scale: 150-209* SENNOSIDES 8.6 MG TABLET Take 8.6 mg by mouth once carlos* HYDROCODONE 5 MG-ACETAMINOPHE* Take 1 tablet by mouth every * TRAZODONE 50 MG TABLET Take 50 mg by mouth daily at * ONDANSETRON HCL 4 MG TABLET Take 4 mg by mouth every 8 ho* IPRATROPIUM-ALBUTEROL 0.5 MG-* Inhale 3 mL as instructed leanne* BUDESONIDE 0.5 MG/2 ML SUSPEN* Use 2 mL via nebulizer once d* INSULIN GLARGINE (U-100) 100 * Inject 50 Units subcutaneousl* INSULIN GLARGINE (U-100) 100 * Inject 36 Units subcutaneousl* NYSTATIN 100,000 UNIT/GRAM TO* Apply 1 application to affect* DEXTROMETHORPHAN-GUAIFENESIN * Take 5-10 mL by mouth every 6* NITROGLYCERIN 0.4 MG SUBLINGU* Dissolve 1 tablet under the t* OXYGEN (HOME THERAPY) Inhale 2.5 L/min as instructe* Problem List As Of Date 06/24/2018 Noted Resolved HOCM (hypertrophic obstructive cardiomyopathy) * 01/23/2018 Priority: I More... SVT (supraventricular tachycardia) (HCC) [I47.1] 01/21/2018 More... Carotid artery disease (HCC) [I77.9] 01/22/2018 CAD (coronary artery disease) [I25.10] Priority: E More... Hypertension [I10] Priority: L More... Hyperlipidemia [E78.5] Pneumonia [J18.9] 10/27/2017 More... COPD (chronic obstructive pulmonary disease) (H* Priority: F More... Sleep apnea [G47.30] Priority: I More... HH (hiatus hernia) [K44.9] 01/21/2018 GERD (gastroesophageal reflux disease) [K21.9] Priority: K More... More... Arthritis [M19.90] Numbness and tingling of right leg [R20.0, R20.* 01/21/2018 Depression [F32.9] Atrial fibrillation (HCC) [I48.91] INVALID FOR* Priority: C More... Uncontrolled type 2 diabetes mellitus with stag*INVALID FOR* Priority: H More... More... More... Heart failure, systolic, acute (HCC) [I50.21] INVALID FOR*01/21/2018 More... Obesity [E66.09] INVALID FOR* Priority: M More... Gout [M10.9] Pacemaker [Z95.0] Priority: D More... Chronic combined systolic and diastolic CHF (co*INVALID FOR* Priority: B More... Elevated troponin [R74.8] INVALID FOR*01/22/2018 Priority: G More... Pulmonary hypertension (HCC) [I27.20] INVALID FOR* Oral thrush [B37.0] INVALID FOR*01/21/2018 Hyponatremia [E87.1] INVALID FOR* Priority: J More... Hyperkalemia [E87.5] INVALID FOR*01/22/2018 Priority: J Chest pain in adult [R07.9] INVALID FOR*02/12/2018 Priority: A More... Acute renal failure superimposed on stage 3 chr*INVALID FOR* Priority: A More... Obesity, Class II, BMI 35-39.9 [E66.9] INVALID FOR* ESRD on dialysis (HCC) [N18.6, Z99.2] INVALID FOR* More... Follow-up and Disposition History Recorded Encounter Status:Closed by JOSE C RODRIGUEZ DPM on 06/26/18 PROGRESS Observed: 06/24/2018 Status: COMPLETED Source: [place] 11:56 AM [facility] REPOSITORY HNO ID: [id number] Author: Jameson Adams) Koffi Service: (none) Author Type: Physician Type: Progress Notes Filed: 06/24/2018 11:56 AM Note Text: Reviewed and agree. PROGRESS Observed: 06/24/2018 Status: COMPLETED Source: [place] 9:54 AM [facility] REPOSITORY HNO ID: [id number] Author: Remi Briseno) Brent Service: (none) Author Type: Registered Nurse Type: Progress Notes Filed: 06/24/2018 12:37 PM Note Text: PRIMARY CARE COORDINATION FOLLOW-UP NOTE Provider Action/FYI Recommended dgt speak to [facility] re: dental care and extraction States pre-op testing for Dr. Hogan will be done on and surgery for fistula is 07/06. States pt continues to remove IVAD dressing, informed dgt that is very dangerous due to possible infection and sepsis. Patient identified by name and date of . YES Spoke to Octavia mesa Summary: Informed PCC spoke to since Medicare A and B won't pay for dental extractions. Recommended to speak to [facility] because they have dentists there that do many procedures, including extractions, verbalized agreement. Watermelon Inspector plan for next outreach: Will follow up 2 weeks Signature Remi Kennedy RN June 24, 2018 LUDA Observed: 06/24/2018 Status: COMPLETED Source: [place] 12:00 AM [facility] REPOSITORY Patient Outreach (FAMPWS) LUZ BACA ([id number]) 1940 F Date Time Provider Department 06/24/18 REMI KENNEDY (RN) NAVINPWS During your visit today, we recorded the following information about you: Remi Kennedy RN 06/24/2018 12:37 PM Signed PRIMARY CARE COORDINATION FOLLOW-UP NOTE Provider Action/FYI Recommended dgt speak to [facility] re: dental care and extraction States pre-op testing for Dr. Hogan will be done on and surgery for fistula is 07/06. States pt continues to remove IVAD dressing, informed dgt that is very dangerous due to possible infection and sepsis. Patient identified by name and date of . YES Spoke to Octavia mesa Summary: Informed PCC spoke to since Medicare A and B won't pay for dental extractions. Recommended to speak to [facility] because they have dentists there that do many procedures, including extractions, verbalized agreement. Watermelon Inspector plan for next outreach: Will follow up 2 weeks Signature Remi Kennedy RN June 24, 2018 Jameson Kamara MD 06/24/2018 11:56 AM Signed Reviewed and agree. Allergies As of Date: 06/24/2018 Noted Allergy Reaction ASPIRIN 01/20/2018 14 - Other: See Comments Comments: Patient states that she bled out every orifice, sts not allowed to take it at all. Patient states she was bleeding out of nose and mouth after one dose. BACTRIM (SULFAMETHOXAZOLE-TRIMETH*05/17/2017 14 - Other: See Comments Comments: My throat swells up. LATEX 05/17/2017 2 - Rash 9 - Itching Comments: Itching and welts. No wheezing or shortness of breath. PENICILLINS 07/14/2004 2 - Rash 9 - Itching Comments: Tolerated ceftriaxone during 11/2017 admission and cefepime during 12/2017 admission TETRACYCLINE 09/29/2010 2 - Rash 8 - GI Upset Comments: Emesis and diarrhea. 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] Prescriptions as of 06/24/2018 Sig: CLINDAMYCIN HCL 150 MG CAPSULE Take 3 capsules by mouth thre* BACITRACIN ZINC 500 UNIT/GRAM* Apply 1 application to affect* POLYETHYLENE GLYCOL 3350 17 G* Use 1-2 times daily as needed* CARVEDILOL 3.125 MG TABLET Take 1 tablet by mouth twice * AMIODARONE 200 MG TABLET Take 1 tablet by mouth once d* SIMVASTATIN 40 MG TABLET Take 1 tablet by mouth every * ISOSORBIDE MONONITRATE ER 30 * Take 3 tablets by mouth once * PREGABALIN 25 MG CAPSULE Take 1 tablet PO daily with a* ELIQUIS 5 MG TABLET TAKE ONE TABLET BY MOUTH TWIC* METOCLOPRAMIDE 5 MG TABLET Take 1 tablet by mouth three * PANTOPRAZOLE 40 MG TABLET,DEL* Take 1 tablet by mouth once d* INSULIN ASPART U-100 100 UNI* Using Sliding Scale: 150-209* SENNOSIDES 8.6 MG TABLET Take 8.6 mg by mouth once carlos* HYDROCODONE 5 MG-ACETAMINOPHE* Take 1 tablet by mouth every * TRAZODONE 50 MG TABLET Take 50 mg by mouth daily at * ONDANSETRON HCL 4 MG TABLET Take 4 mg by mouth every 8 ho* IPRATROPIUM-ALBUTEROL 0.5 MG-* Inhale 3 mL as instructed leanne* BUDESONIDE 0.5 MG/2 ML SUSPEN* Use 2 mL via nebulizer once d* INSULIN GLARGINE (U-100) 100 * Inject 50 Units subcutaneousl* INSULIN GLARGINE (U-100) 100 * Inject 36 Units subcutaneousl* NYSTATIN 100,000 UNIT/GRAM TO* Apply 1 application to affect* DEXTROMETHORPHAN-GUAIFENESIN * Take 5-10 mL by mouth every 6* NITROGLYCERIN 0.4 MG SUBLINGU* Dissolve 1 tablet under the t* OXYGEN (HOME THERAPY) Inhale 2.5 L/min as instructe* Problem List As Of Date 06/24/2018 Noted Resolved HOCM (hypertrophic obstructive cardiomyopathy) * 01/23/2018 Priority: I More... SVT (supraventricular tachycardia) (HCC) [I47.1] 01/21/2018 More... Carotid artery disease (HCC) [I77.9] 01/22/2018 CAD (coronary artery disease) [I25.10] Priority: E More... Hypertension [I10] Priority: L More... Hyperlipidemia [E78.5] Pneumonia [J18.9] 10/27/2017 More... COPD (chronic obstructive pulmonary disease) (H* Priority: F More... Sleep apnea [G47.30] Priority: I More... HH (hiatus hernia) [K44.9] 01/21/2018 GERD (gastroesophageal reflux disease) [K21.9] Priority: K More... More... Arthritis [M19.90] Numbness and tingling of right leg [R20.0, R20.* 01/21/2018 Depression [F32.9] Atrial fibrillation (HCC) [I48.91] INVALID FOR* Priority: C More... Uncontrolled type 2 diabetes mellitus with stag*INVALID FOR* Priority: H More... More... More... Heart failure, systolic, acute (HCC) [I50.21] INVALID FOR*01/21/2018 More... Obesity [E66.09] INVALID FOR* Priority: M More... Gout [M10.9] Pacemaker [Z95.0] Priority: D More... Chronic combined systolic and diastolic CHF (co*INVALID FOR* Priority: B More... Elevated troponin [R74.8] INVALID FOR*01/22/2018 Priority: G More... Pulmonary hypertension (HCC) [I27.20] INVALID FOR* Oral thrush [B37.0] INVALID FOR*01/21/2018 Hyponatremia [E87.1] INVALID FOR* Priority: J More... Hyperkalemia [E87.5] INVALID FOR*01/22/2018 Priority: J Chest pain in adult [R07.9] INVALID FOR*02/12/2018 Priority: A More... Acute renal failure superimposed on stage 3 chr*INVALID FOR* Priority: A More... Obesity, Class II, BMI 35-39.9 [E66.9] INVALID FOR* ESRD on dialysis (HCC) [N18.6, Z99.2] INVALID FOR* More... Encounter Status:Closed by REMI KENNEDY on 06/24/18 XR HIP 3V PELV+ Observed: 06/23/2018 Status: F Source: [place] AP/LAT RT 12:29 PM [facility] REPOSITORY * * *Final Report* * * DATE OF EXAM: Jun 23 2018 12:29PM WOX [id number] - XR HIP 3V PELV+ AP/LAT RT / PROCEDURE REASON: Pain in right hip * * * * Physician Interpretation * * * * EXAM:XR HIP 3V PELV+ AP/LAT RT HISTORY: Pain in right hip COMPARISON:None IMPRESSION: There are fwlh-ab-dmujuiyt degenerative changes in bilateral hip joints. Sacroiliac joints are maintained. There is no fracture or destructive lesion. There is diffuse demineralization. There are extensive vascular calcifications. Service Delivery Supervisor: PSCB Transcribe Date/Time: Jun 23 2018 2:52P Dictated by : MARIO ALBERTO RANGEL MD This examination was interpreted and the report reviewed and electronically signed by: MARIO ALBERTO RANGEL MD on Jun 23 2018 2:53PM EST [id number] PROGRESS Observed: 06/23/2018 Status: COMPLETED Source: [place] 12:16 PM [facility] REPOSITORY HNO ID: [id number] Author: Yi Cox Service: (none) Author Type: (none) Type: Progress Notes Filed: 06/23/2018 12:29 PM Note Text: Radiology Service Progress Note PATIENT NAME: Luz Baca DATE OF SERVICE: June 23, 2018 TIME: 12:16 PM PATIENT IDENTITY VERIFICATION COMPLETED USING TWO (2) METHODS: Patient confirmed name verbally and Date of . PATIENT GENDER DATA: Female. status: : No status: NO. PATIENT RELEVANT IMPLANT DATA REVIEWED: Not Applicable RADIOLOGY DEPARTMENT: General X-ray: Exam(s) Completed: Pelvis X-Ray: Pelvis with Hip Right PERIPHERAL IV DATA: Not applicable SIGNED BY: Yi Cox June 23, 2018 12:16 PM CNOV Observed: 06/23/2018 Status: COMPLETED Source: [place] 11:40 AM [facility] REPOSITORY Office Visit (FAMPWS) LUZ BACA ([id number]) 1940 F Date Time Provider Department 06/23/18 11:40 AM JAMESON KAMARA) FAMPWS During your visit today, we recorded the following information about you: Pulse Respiration Blood pressure 86/minute 14/minute 118/58 Jameson Kamara MD 06/23/2018 3:50 PM Signed Chief Complaint Patient presents with: Pain (foot): wound - left second toe HPI Luz Baca is a 77 year old female who presents here today for Evaluation of foot wound and skin tear in diabetic patient. Also checking for dental abscess for recent tooth pain per [facility]. Patient with ulceration of left toes found over the last few days, not wearing her diabetic shoes, in [facility] today. Denies new injury to feet, thinks might be rubbing on her shoes. Skin tear on left forearm after removing band aid. Has covered today with gauze and non adherent pad. Treating with bacitracin BID and daily wound dressing changes. Healing well without signs of infection. Needs to have bottom teeth pulled, insurance does not cover dental extraction with medicare part AANDB. Would like gums checked for infection today. Notes pain and swelling over right lower bottom teeth. Also notes severe pain over right hip for the last 2-3 weeks without injury. Worse with ambulation, standing. Improved with lying down. Denies erythema, swelling, bruising. Past medical history, appointments, medications, allergies reviewed. Previous Medical History PAST MEDICAL HISTORY Diagnosis Date - Arthritis - Atrial fibrillation (HCC) - CAD (coronary artery disease) stents x9, defibrillator, CABG. Seeing Dr. Cardona - Cardiac defibrillator in place - Cardiomegaly - Carotid artery disease (HCC) left - Chronic kidney disease (CKD) stage G3b/A2, moderately decreased glomerular filtration rate (GFR) between 30-44 mL/min/1.73 square meter and albuminuria creatinine ratio between 30-299 mg/g ([facility]) Dr. Martin - COPD (chronic obstructive pulmonary disease) ([facility]) Dr. Cruz - Depression - Diabetes ([facility]) - Diabetic neuropathy ([facility]) - Edema - ESRD (end stage renal disease) on dialysis ([facility]) MW, Dr. Martin - GERD (gastroesophageal reflux disease) - Gout with hyperuricemia - HH (hiatus hernia) - HOCM (hypertrophic obstructive cardiomyopathy) ([facility]) S/P Septal Myectomy in 2003. Now with LVEF 50% and mod/severe pulm HTN. - HTN (hypertension) - Hyperlipidemia - Morbid obesity with BMI of 40.0-44.9, adult ([facility]) - Sleep apnea 2011 not on CPAP, unable to tolerate mask 02/2017 - SVT (supraventricular tachycardia) ([facility]) NSVT and questionable VT in 2003 post op Previous Surgical History PAST SURGICAL HISTORY Procedure Laterality Date - CHOLECYSTECTOMY HX - DIALYSIS ACCESS SYSTEM - HEART SURGERY HX 07/18/2004 Septal myectomy and CABG x2 (DEBORAH-LAD, SVG-PDA). - HYSTERECTOMY HX - IANDD PERIANAL ABSCESS - PACEMAKER with defib - PAST SURGICAL HISTORY OF left breast nodule removed - PAST SURGICAL HISTORY OF skin lesions removed Family History FAMILY HISTORY Problem Relation Age of Onset - Hypertension Mother living at age 93, HTN - Heart Failure Mother NE - Cancer Father age 71, lung cancer - Heart Attack Sister - COPD Brother - Heart Paternal Grandmother - Heart Paternal Grandfather - Heart Sister - Diabetes Sister - Heart Sister - Breast Cancer Sister - Diabetes Sister - Hypertension Brother - Diabetes Brother Patient Allergies ALLERGIES Allergen Reactions - Aspirin Other: See Comments Patient states that she bled out every orifice, sts not allowed to take it at all. Patient states she was bleeding out of nose and mouth after one dose. - Bactrim [Sulfametho* Other: See Comments My throat swells up. - Latex Rash, Itching Itching and welts. No wheezing or shortness of breath. - Penicillins Rash, Itching Tolerated ceftriaxone during 11/2017 admission and cefepime during 12/2017 admission - Tetracycline Rash, GI Upset Emesis and diarrhea. - Atorvastatin Rash - Codeine Other: See Comments Numbness - Dilaudid [Hydromorp* Mental Status Change - Meperidine - Pentazocine - Pioglitazone Unknown - Propoxyphene Current Medications Current Outpatient Prescriptions on File Prior to Visit: bacitracin zinc (ANTIBIOTIC, BACITRACIN ZINC,) 500 unit/gram ointment Apply 1 application to affected area twice daily. polyethylene glycol 3350 (MIRALAX) 17 gram/dose powder Use 1-2 times daily as needed for constipation. carvedilol (COREG) 3.125 mg tablet Take 1 tablet by mouth twice daily with meals. amiodarone (PACERONE) 200 mg tablet Take 1 tablet by mouth once daily. simvastatin (ZOCOR) 40 mg tablet Take 1 tablet by mouth every morning. isosorbide mononitrate ER (IMDUR) 30 mg 24 hr tablet Take 3 tablets by mouth once daily. pregabalin (LYRICA) 25 mg capsule Take 1 tablet PO daily with an additional 1 tablet PO after dialysis MWF ELIQUIS 5 mg tab(s) TAKE ONE TABLET BY MOUTH TWICE DAILY metoclopramide HCl (REGLAN) 5 mg tablet Take 1 tablet by mouth three times daily. pantoprazole DR (PROTONIX) 40 mg tablet Take 1 tablet by mouth once daily. insulin aspart U-100 (NOVOLOG FLEXPEN U-100 INSULIN) 100 unit/mL inpn Using Sliding Scale: 150-209 1 unit, 210-269 2 units, 270-329 3 units, 330-389 4 units, 390-449 5 units senna (SENNA) 8.6 mg tab Take 8.6 mg by mouth once daily. HYDROcodone-acetaminophen (NORCO) 5-325 mg per tablet Take 1 tablet by mouth every 8 hours as needed. traZODone (DESYREL) 50 mg tablet Take 50 mg by mouth daily at bedtime. ondansetron (ZOFRAN) 4 mg tablet Take 4 mg by mouth every 8 hours as needed. ipratropium-albuterol (DUONEB) 0.5 mg-3 mg(2.5 mg base)/3 mL nebu Inhale 3 mL as instructed every 4 hours while awake. And prn for wheezing/shortness of breath. budesonide (PULMICORT) 0.5 mg/2 mL nebulizer solution Use 2 mL via nebulizer once daily. INHALE 2 ML BY NEBULIZER OVER 5-15 MINUTES EVERY 12 HOURS. insulin glargine (LANTUS SOLOSTAR U-100 INSULIN) 100 unit/mL (3 mL) inpn Inject 50 Units subcutaneously every morning. insulin glargine (LANTUS SOLOSTAR U-100 INSULIN) 100 unit/mL (3 mL) inpn Inject 36 Units subcutaneously daily at bedtime. nystatin (NYSTOP) powder Apply 1 application to affected area three times daily. guaiFENesin-dextromethorphan (ROBITUSSIN DM) 100-10 mg/5 mL syrup Take 5-10 mL by mouth every 6 hours as needed for Cough. nitroglycerin sublingual (NITROQUICK) 0.4 mg SL tablet Dissolve 1 tablet under the tongue every 5 minutes as needed. OXYGEN, HOME THERAPY, Inhale 2.5 L/min as instructed continuous. 3 L/min when leaves home. No current facility-administered medications on file prior to visit. Social History Social History Marital status: Spouse name: Years of education: Number of children: Social History Main Topics Smoking status: Former Smoker Packs/day: 2.50 Years: 43.00 Types: Cigarettes Start date: 1961 Quit date: 07/07/2004 Smokeless tobacco: Never Used Alcohol use: No Drug use: No Other Topics Concern Caffeine Concern Yes Comment:coffee 1 cup daily Special Diet No Comment:Regular Exercise No Comment:no unable, due to SOB x several months. Social History Narrative Patient and daughter live together. Review of Symptoms REVIEW OF SYSTEMS GENERAL: No weight loss, malaise or fevers RESPIRATORY: Negative for cough, hemoptysis, wheezing, COPD, dyspnea or shortness of breath CARDIOVASCULAR: Negative for chest pain, leg swelling, hypertension, CHF or palpitations GI: No nausea, vomiting, or diarrhea SKIN: Negative for lesions, rash, and itching EXAM: BP 118/58 Pulse 86 Resp 14 General Appearance: Well appearing, alert, in no acute distress, well-hydrated, well nourished.. Skin: Straight skin tear over right forearm about 2-3 cm in diameter without signs of cellulitis. Oropharynx: edentulous top, has ulceration, erythema and swelling of gums over right incisor without active drainage. Lungs: Lungs clear to auscultation. No wheezing, rhonchi, rales. Heart: RRR without murmur, gallop, or rubs. No ectopy. Abdomen: Normal abdominal exam, Abdomen soft, non-tender. Bowel sounds normal. No masses, organomegaly. Extremities: ulceration over left dorsal DIP without bleeding or discharge, crusting over 4th toe DIP, scabbing over tips of 2nd and 3rd toe. HIP: Location: Right Redness: No. Warmth: No. Range of motion: limited due to pain Tenderness over trochanteric bursa: yes Pain with movement: Yes. Health Maintenance List DTAP,TDAP,TD(1 - Tdap) due on 1960 COLORECTAL CANCER SCREENING,SEE MODIFIER due on 1991 BONE DENSITY due on 2006 ADULT PREVNAR-13 due on 2006 PNEUMOVAX AGE 65 AND OVER WITH 5YR LOOKBACK(1) due on 2006 DAMION/ARB MED PRESCRIBED due on 06/23/2018 INFLUENZA(1) due on 06/18/2018 STATIN MED ADHERENCE due on 07/18/2018 DIABETES MED ADHERENCE due on 07/18/2018 DILATED RETINAL EXAM due on 10/27/2018 HBA1C due on 11/25/2018 DIABETIC FOOT EXAM due on 01/31/2019 SERUM CREATININE due on 02/18/2019 HEMOGLOBIN/HEMATOCRIT due on 05/10/2019 URINE ALBUMIN:CREATININE RATIO due on 05/25/2019 LDL CHOLESTEROL due on 05/25/2019 ANNUAL PCP TEAM CHRONIC DISEASE VISIT due on 06/14/2019 BP CONTROLLED (<130/80) due on 06/16/2019 ASSESSMENT/PLAN: 1. Diabetic ulcer of toe of right foot associated with type 2 diabetes mellitus, limited to breakdown of skin (HCC) - ICD9: 250.80, 707.15, ICD10: E11.621, L97.511 (primary diagnosis) Advised patient to check orthopedic shoes to make sure they do not rub, use them daily as directed previously by podiatry. Needs to throw away her crocs as they are fall risk for her and are rubbing on her toes today. Advised she needs to be seen by podiatry in the next few days for close follow up of foot ulcer. Advised use of bacitracin BID, keep open, call with worsening symptoms 2. Skin tear of right elbow without complication, initial encounter - ICD9: 881.01, ICD10: S51.011A Healing well. Continue bacitracin. 3. Dental infection - ICD9: 522.4, ICD10: K04.7 Start clindamycin, will have PCC help with scheduling appointment for dental extraction. - CLINDAMYCIN HCL 150 MG CAPSULE 4. Right hip pain - ICD9: 719.45, ICD10: M25.551 Xray to rule out AVN vs fracture vs arthritis and will call with results. Advised ice/heat and OTC tylenol for pain. - XR HIP GENERAL 3V PELV/AP/LAT RT Jameson Kamara MD Referring Provider: SELF [[id number]] Allergies As of Date: 06/23/2018 Noted Allergy Reaction ASPIRIN 01/20/2018 14 - Other: See Comments Comments: Patient states that she bled out every orifice, sts not allowed to take it at all. Patient states she was bleeding out of nose and mouth after one dose. BACTRIM (SULFAMETHOXAZOLE-TRIMETH*05/17/2017 14 - Other: See Comments Comments: My throat swells up. LATEX 05/17/2017 2 - Rash 9 - Itching Comments: Itching and welts. No wheezing or shortness of breath. PENICILLINS 07/14/2004 2 - Rash 9 - Itching Comments: Tolerated ceftriaxone during 11/2017 admission and cefepime during 12/2017 admission TETRACYCLINE 09/29/2010 2 - Rash 8 - GI Upset Comments: Emesis and diarrhea. ATORVASTATIN 05/17/2017 2 - Rash CODEINE 05/17/2017 14 - Other: See Comments Comments: Numbness DILAUDID (HYDROMORPHONE (BULK)) 05/17/2017 1 - Mental Status Change MEPERIDINE 07/14/2004 PENTAZOCINE 07/14/2004 PIOGLITAZONE 05/17/2017 16 - Unknown PROPOXYPHENE 07/14/2004 Date Reviewed: 06/23/2018 Reviewed by: Sean Han Ma - Fully Assessed Reason for Visit: Pain (foot) [760] Cmt: wound - left second toe Primary Visit Diagnosis:Diabetic ulcer of toe of right foot associated with type 2 diabetes mellitus, limited to breakdown of skin (HCC) [E11.621, L97.511] Other Visit Diagnoses:Skin tear of right elbow without complication, initial encounter [S51.011A] Dental infection [K04.7] Right hip pain [M25.551] Order(s):clindamycin (CLEOCIN) 150 mg capsuleTake 3 capsules by mouth three times daily for 7 days.Disp: 63 capsuleRfl: 0 XR HIP GENERAL 3V PELV/AP/LAT RT [[id number]] Order #: [id number] FUTURE Prescriptions as of 06/23/2018 Sig: CLINDAMYCIN HCL 150 MG CAPSULE Take 3 capsules by mouth thre* BACITRACIN ZINC 500 UNIT/GRAM* Apply 1 application to affect* POLYETHYLENE GLYCOL 3350 17 G* Use 1-2 times daily as needed* CARVEDILOL 3.125 MG TABLET Take 1 tablet by mouth twice * AMIODARONE 200 MG TABLET Take 1 tablet by mouth once d* SIMVASTATIN 40 MG TABLET Take 1 tablet by mouth every * ISOSORBIDE MONONITRATE ER 30 * Take 3 tablets by mouth once * PREGABALIN 25 MG CAPSULE Take 1 tablet PO daily with a* ELIQUIS 5 MG TABLET TAKE ONE TABLET BY MOUTH TWIC* METOCLOPRAMIDE 5 MG TABLET Take 1 tablet by mouth three * PANTOPRAZOLE 40 MG TABLET,DEL* Take 1 tablet by mouth once d* INSULIN ASPART U-100 100 UNI* Using Sliding Scale: 150-209* SENNOSIDES 8.6 MG TABLET Take 8.6 mg by mouth once carlos* HYDROCODONE 5 MG-ACETAMINOPHE* Take 1 tablet by mouth every * TRAZODONE 50 MG TABLET Take 50 mg by mouth daily at * ONDANSETRON HCL 4 MG TABLET Take 4 mg by mouth every 8 ho* IPRATROPIUM-ALBUTEROL 0.5 MG-* Inhale 3 mL as instructed leanne* BUDESONIDE 0.5 MG/2 ML SUSPEN* Use 2 mL via nebulizer once d* INSULIN GLARGINE (U-100) 100 * Inject 50 Units subcutaneousl* INSULIN GLARGINE (U-100) 100 * Inject 36 Units subcutaneousl* NYSTATIN 100,000 UNIT/GRAM TO* Apply 1 application to affect* DEXTROMETHORPHAN-GUAIFENESIN * Take 5-10 mL by mouth every 6* NITROGLYCERIN 0.4 MG SUBLINGU* Dissolve 1 tablet under the t* OXYGEN (HOME THERAPY) Inhale 2.5 L/min as instructe* Problem List As Of Date 06/23/2018 Noted Resolved HOCM (hypertrophic obstructive cardiomyopathy) * 01/23/2018 Priority: I More... SVT (supraventricular tachycardia) ([facility]) [I47.1] 01/21/2018 More... Carotid artery disease (HCC) [I77.9] 01/22/2018 CAD (coronary artery disease) [I25.10] Priority: E More... Hypertension [I10] Priority: L More... Hyperlipidemia [E78.5] Pneumonia [J18.9] 10/27/2017 More... COPD (chronic obstructive pulmonary disease) (H* Priority: F More... Sleep apnea [G47.30] Priority: I More... HH (hiatus hernia) [K44.9] 01/21/2018 GERD (gastroesophageal reflux disease) [K21.9] Priority: K More... More... Arthritis [M19.90] Numbness and tingling of right leg [R20.0, R20.* 01/21/2018 Depression [F32.9] Atrial fibrillation (HCC) [I48.91] INVALID FOR* Priority: C More... Uncontrolled type 2 diabetes mellitus with stag*INVALID FOR* Priority: H More... More... More... Heart failure, systolic, acute (HCC) [I50.21] INVALID FOR*01/21/2018 More... Obesity [E66.09] INVALID FOR* Priority: M More... Gout [M10.9] Pacemaker [Z95.0] Priority: D More... Chronic combined systolic and diastolic CHF (co*INVALID FOR* Priority: B More... Elevated troponin [R74.8] INVALID FOR*01/22/2018 Priority: G More... Pulmonary hypertension (HCC) [I27.20] INVALID FOR* Oral thrush [B37.0] INVALID FOR*01/21/2018 Hyponatremia [E87.1] INVALID FOR* Priority: J More... Hyperkalemia [E87.5] INVALID FOR*01/22/2018 Priority: J Chest pain in adult [R07.9] INVALID FOR*02/12/2018 Priority: A More... Acute renal failure superimposed on stage 3 chr*INVALID FOR* Priority: A More... Obesity, Class II, BMI 35-39.9 [E66.9] INVALID FOR* ESRD on dialysis (HCC) [N18.6, Z99.2] INVALID FOR* More... Prescriptions ordered this encounter Disp Refills Start End CLINDAMYCIN HCL 150 MG CAPSULE 63 c* 0 06/23/2018 06/30/2018 Route: ORAL Sig: Take 3 capsules by mouth three times daily for 7 days. Encounter Status:Closed by JAMESON KAMARA MD on 06/23/18 PROGRESS Observed: 06/23/2018 Status: COMPLETED Source: [place] 11:31 AM [facility] REPOSITORY [facility] ID: [id number] Author: Jameson Warner () Koffi Service: (none) Author Type: Physician Type: Progress Notes Filed: 06/23/2018 3:50 PM Note Text: Chief Complaint Patient presents with: Pain (foot): wound - left second toe HPI Luz Baca is a 77 year old female who presents here today for Evaluation of foot wound and skin tear in diabetic patient. Also checking for dental abscess for recent tooth pain per [facility]. Patient with ulceration of left toes found over the last few days, not wearing her diabetic shoes, in crocs today. Denies new injury to feet, thinks might be rubbing on her shoes. Skin tear on left forearm after removing band aid. Has covered today with gauze and non adherent pad. Treating with bacitracin BID and daily wound dressing changes. Healing well without signs of infection. Needs to have bottom teeth pulled, insurance does not cover dental extraction with medicare part AANDB. Would like gums checked for infection today. Notes pain and swelling over right lower bottom teeth. Also notes severe pain over right hip for the last 2-3 weeks without injury. Worse with ambulation, standing. Improved with lying down. Denies erythema, swelling, bruising. Past medical history, appointments, medications, allergies reviewed. Previous Medical History PAST MEDICAL HISTORY Diagnosis Date - Arthritis - Atrial fibrillation (HCC) - CAD (coronary artery disease) stents x9, defibrillator, CABG. Seeing Dr. Cardona - Cardiac defibrillator in place - Cardiomegaly - Carotid artery disease ([facility]) left - Chronic kidney disease (CKD) stage G3b/A2, moderately decreased glomerular filtration rate (GFR) between 30-44 mL/min/1.73 square meter and albuminuria creatinine ratio between 30-299 mg/g ([facility]) Dr. Martin - COPD (chronic obstructive pulmonary disease) ([facility]) Dr. Olbrych - Depression - Diabetes ([facility]) - Diabetic neuropathy ([facility]) - Edema - ESRD (end stage renal disease) on dialysis ([facility]) [place], Dr. Martin - GERD (gastroesophageal reflux disease) - Gout with hyperuricemia - HH (hiatus hernia) - HOCM (hypertrophic obstructive cardiomyopathy) ([facility]) S/P Septal Myectomy in 2003. Now with LVEF 50% and mod/severe pulm HTN. - HTN (hypertension) - Hyperlipidemia - Morbid obesity with BMI of 40.0-44.9, adult ([facility]) - Sleep apnea 2011 not on CPAP, unable to tolerate mask 02/2017 - SVT (supraventricular tachycardia) ([facility]) NSVT and questionable VT in 2003 post op Previous Surgical History PAST SURGICAL HISTORY Procedure Laterality Date - CHOLECYSTECTOMY HX - DIALYSIS ACCESS SYSTEM - HEART SURGERY HX 07/18/2004 Septal myectomy and CABG x2 (DEBORAH-LAD, SVG-PDA). - HYSTERECTOMY HX - IANDD PERIANAL ABSCESS - PACEMAKER with defib - PAST SURGICAL HISTORY OF left breast nodule removed - PAST SURGICAL HISTORY OF skin lesions removed Family History FAMILY HISTORY Problem Relation Age of Onset - Hypertension Mother living at age 93, HTN - Heart Failure Mother [place] - Cancer Father age 71, lung cancer - Heart Attack Sister - COPD Brother - Heart Paternal Grandmother - Heart Paternal Grandfather - Heart Sister - Diabetes Sister - Heart Sister - Breast Cancer Sister - Diabetes Sister - Hypertension Brother - Diabetes Brother Patient Allergies ALLERGIES Allergen Reactions - Aspirin Other: See Comments Patient states that she bled out every orifice, sts not allowed to take it at all. Patient states she was bleeding out of nose and mouth after one dose. - Bactrim [Sulfametho* Other: See Comments My throat swells up. - Latex Rash, Itching Itching and welts. No wheezing or shortness of breath. - Penicillins Rash, Itching Tolerated ceftriaxone during 11/2017 admission and cefepime during 12/2017 admission - Tetracycline Rash, GI Upset Emesis and diarrhea. - Atorvastatin Rash - Codeine Other: See Comments Numbness - Dilaudid [Hydromorp* Mental Status Change - Meperidine - Pentazocine - Pioglitazone Unknown - Propoxyphene Current Medications Current Outpatient Prescriptions on File Prior to Visit: bacitracin zinc (ANTIBIOTIC, BACITRACIN ZINC,) 500 unit/gram ointment Apply 1 application to affected area twice daily. polyethylene glycol 3350 (MIRALAX) 17 gram/dose powder Use 1-2 times daily as needed for constipation. carvedilol (COREG) 3.125 mg tablet Take 1 tablet by mouth twice daily with meals. amiodarone (PACERONE) 200 mg tablet Take 1 tablet by mouth once daily. simvastatin (ZOCOR) 40 mg tablet Take 1 tablet by mouth every morning. isosorbide mononitrate ER (IMDUR) 30 mg 24 hr tablet Take 3 tablets by mouth once daily. pregabalin (LYRICA) 25 mg capsule Take 1 tablet PO daily with an additional 1 tablet PO after dialysis MWF ELIQUIS 5 mg tab(s) TAKE ONE TABLET BY MOUTH TWICE DAILY metoclopramide HCl (REGLAN) 5 mg tablet Take 1 tablet by mouth three times daily. pantoprazole DR (PROTONIX) 40 mg tablet Take 1 tablet by mouth once daily. insulin aspart U-100 (NOVOLOG FLEXPEN U-100 INSULIN) 100 unit/mL inpn Using Sliding Scale: 150-209 1 unit, 210-269 2 units, 270- 329 3 units, 330-389 4 units, 390-449 5 units senna (SENNA) 8.6 mg tab Take 8.6 mg by mouth once daily. HYDROcodone-acetaminophen (NORCO) 5-325 mg per tablet Take 1 tablet by mouth every 8 hours as needed. traZODone (DESYREL) 50 mg tablet Take 50 mg by mouth daily at bedtime. ondansetron (ZOFRAN) 4 mg tablet Take 4 mg by mouth every 8 hours as needed. ipratropium-albuterol (DUONEB) 0.5 mg-3 mg(2.5 mg base)/3 mL nebu Inhale 3 mL as instructed every 4 hours while awake. And prn for wheezing/shortness of breath. budesonide (PULMICORT) 0.5 mg/2 mL nebulizer solution Use 2 mL via nebulizer once daily. INHALE 2 ML BY NEBULIZER OVER 5-15 MINUTES EVERY 12 HOURS. insulin glargine (LANTUS SOLOSTAR U-100 INSULIN) 100 unit/mL (3 mL) inpn Inject 50 Units subcutaneously every morning. insulin glargine (LANTUS SOLOSTAR U-100 INSULIN) 100 unit/mL (3 mL) inpn Inject 36 Units subcutaneously daily at bedtime. nystatin (NYSTOP) powder Apply 1 application to affected area three times daily. guaiFENesin-dextromethorphan (ROBITUSSIN DM) 100-10 mg/5 mL syrup Take 5-10 mL by mouth every 6 hours as needed for Cough. nitroglycerin sublingual (NITROQUICK) 0.4 mg SL tablet Dissolve 1 tablet under the tongue every 5 minutes as needed. OXYGEN, HOME THERAPY, Inhale 2.5 L/min as instructed continuous. 3 L/min when leaves home. No current facility-administered medications on file prior to visit. Social History Social History Marital status: Spouse name: Years of education: Number of children: Social History Main Topics Smoking status: Former Smoker Packs/day: 2.50 Years: 43.00 Types: Cigarettes Start date: 1961 Quit date: 07/07/2004 Smokeless tobacco: Never Used Alcohol use: No Drug use: No Other Topics Concern Caffeine Concern Yes Comment:coffee 1 cup daily Special Diet No Comment:Regular Exercise No Comment:no unable, due to SOB x several months. Social History Narrative Patient and daughter live together. Review of Symptoms REVIEW OF SYSTEMS GENERAL: No weight loss, malaise or fevers RESPIRATORY: Negative for cough, hemoptysis, wheezing, COPD, dyspnea or shortness of breath CARDIOVASCULAR: Negative for chest pain, leg swelling, hypertension, CHF or palpitations GI: No nausea, vomiting, or diarrhea SKIN: Negative for lesions, rash, and itching EXAM: BP 118/58 Pulse 86 Resp 14 General Appearance: Well appearing, alert, in no acute distress, well-hydrated, well nourished.. Skin: Straight skin tear over right forearm about 2-3 cm in diameter without signs of cellulitis. Oropharynx: edentulous top, has ulceration, erythema and swelling of gums over right incisor without active drainage. Lungs: Lungs clear to auscultation. No wheezing, rhonchi, rales. Heart: RRR without murmur, gallop, or rubs. No ectopy. Abdomen: Normal abdominal exam, Abdomen soft, non-tender. Bowel sounds normal. No masses, organomegaly. Extremities: ulceration over left dorsal DIP without bleeding or discharge, crusting over 4th toe DIP, scabbing over tips of 2nd and 3rd toe. HIP: Location: Right Redness: No. Warmth: No. Range of motion: limited due to pain Tenderness over trochanteric bursa: yes Pain with movement: Yes. Health Maintenance List DTAP,TDAP,TD(1 - Tdap) due on 1960 COLORECTAL CANCER SCREENING,SEE MODIFIER due on 1991 BONE DENSITY due on 2006 ADULT PREVNAR-13 due on 2006 PNEUMOVAX AGE 65 AND OVER WITH 5YR LOOKBACK(1) due on 2006 DAMION/ARB MED PRESCRIBED due on 06/23/2018 INFLUENZA(1) due on 06/18/2018 STATIN MED ADHERENCE due on 07/18/2018 DIABETES MED ADHERENCE due on 07/18/2018 DILATED RETINAL EXAM due on 10/27/2018 HBA1C due on 11/25/2018 DIABETIC FOOT EXAM due on 01/31/2019 SERUM CREATININE due on 02/18/2019 HEMOGLOBIN/HEMATOCRIT due on 05/10/2019 URINE ALBUMIN:CREATININE RATIO due on 05/25/2019 LDL CHOLESTEROL due on 05/25/2019 ANNUAL PCP TEAM CHRONIC DISEASE VISIT due on 06/14/2019 BP CONTROLLED (<130/80) due on 06/16/2019 ASSESSMENT/PLAN: 1. Diabetic ulcer of toe of right foot associated with type 2 diabetes mellitus, limited to breakdown of skin (HCC) - ICD9: 250.80, 707.15, ICD10: E11.621, L97.511 (primary diagnosis) Advised patient to check orthopedic shoes to make sure they do not rub, use them daily as directed previously by podiatry. Needs to throw away her crocs as they are fall risk for her and are rubbing on her toes today. Advised she needs to be seen by podiatry in the next few days for close follow up of foot ulcer. Advised use of bacitracin BID, keep open, call with worsening symptoms 2. Skin tear of right elbow without complication, initial encounter - ICD9: 881.01, ICD10: S51.011A Healing well. Continue bacitracin. 3. Dental infection - ICD9: 522.4, ICD10: K04.7 Start clindamycin, will have PCC help with scheduling appointment for dental extraction. - CLINDAMYCIN HCL 150 MG CAPSULE 4. Right hip pain - ICD9: 719.45, ICD10: M25.551 Xray to rule out AVN vs fracture vs arthritis and will call with results. Advised ice/heat and OTC tylenol for pain. - XR HIP GENERAL 3V PELV/AP/LAT RT Jameson Kamara MD PROGRESS Observed: 06/22/2018 Status: COMPLETED Source: [place] 11:06 AM [facility] REPOSITORY [facility] ID: [id number] Author: Jameson Adams) Koffi Service: (none) Author Type: Physician Type: Progress Notes Filed: 06/22/2018 11:06 AM Note Text: Reviewed. PROGRESS Observed: 06/17/2018 Status: COMPLETED Source: [place] 2:58 PM [facility] REPOSITORY [facility] ID: [id number] Author: Remi Briseno) Brent Service: (none) Author Type: Registered Nurse Type: Progress Notes Filed: 06/22/2018 11:05 AM Note Text: PRIMARY CARE COORDINATION FOLLOW-UP NOTE Provider Action/FYI Pt seeing PCP tomorrow for skin tear on wrist and bloody toe, unsure of injury Pt needs her teeth pulled. Discussed oral surgeons and pt's high risk medical problems. [facility] called ambulatory surgery, [facility] only has one oral surgeon and he operates at [facility] Left message for [facility] Dentistry financial counselor to ask if Medicare A or B pays any portion of cost for a medically high risk patient for tooth extractions. Patient identified by name and date of . YES Spoke to Octavia mesa Summary: Dgt states patient has skin tear on wrist and bleeding area on her toe. Unsure of injuries to areas. Seeing PCP tomorrow. Patient is at dialysis now. Asked about pt's low BP/dizziness, states we'll see after dialysis today. Discussed fine balance between dialysis taking off enough fluid to improve her breathing but not too much fluid that makes her BP drop and causes dizziness, verbalized understanding. Concerns: TC to patient, left message to please call PCC back. Remi Kennedy RN June 22, 2018 10:33 AM TC to patient, left message to please call PCC back. Remi Kennedy RN June 17, 2018 2:33 PM [employer]erm[employer] Inspector plan for next outreach: Will follow up tomorrow Signature Remi Kennedy RN June 17, 2018 CNPTOUTREACH Observed: 06/17/2018 Status: COMPLETED Source: [place] 12:00 AM [facility] REPOSITORY Patient Outreach (FAMPWS) BACALUZ ([id number]) 1940 F Date Time Provider Department 06/17/18 REMI KENNEDY (RN) SLOANWS During your visit today, we recorded the following information about you: Remi Kennedy RN 06/22/2018 11:05 AM Signed PRIMARY CARE COORDINATION FOLLOW-UP NOTE Provider Action/FYI Pt seeing PCP tomorrow for skin tear on wrist and bloody toe, unsure of injury Pt needs her teeth pulled. Discussed oral surgeons and pt's high risk medical problems. [facility] called ambulatory surgery, [facility] only has one oral surgeon and he operates at [facility] Left message for [facility] Dentistry financial counselor to ask if Medicare A or B pays any portion of cost for a medically high risk patient for tooth extractions. Patient identified by name and date of . YES Spoke to Octavia mesa Summary: Dgt states patient has skin tear on wrist and bleeding area on her toe. Unsure of injuries to areas. Seeing PCP tomorrow. Patient is at dialysis now. Asked about pt's low BP/dizziness, states we'll see after dialysis today. Discussed fine balance between dialysis taking off enough fluid to improve her breathing but not too much fluid that makes her BP drop and causes dizziness, verbalized understanding. Concerns: TC to patient, left message to please call PCC back. Remi Kennedy RN June 22, 2018 10:33 AM TC to patient, left message to please call PCC back. Remi Kennedy RN June 17, 2018 2:33 PM Watermelon Inspector plan for next outreach: Will follow up tomorrow Signature Remi Kennedy RN June 17, 2018 Jameson Kamara MD 06/22/2018 11:06 AM Signed Reviewed. Allergies As of Date: 06/17/2018 Noted Allergy Reaction ASPIRIN 01/20/2018 14 - Other: See Comments Comments: Patient states that she bled out every orifice, sts not allowed to take it at all. Patient states she was bleeding out of nose and mouth after one dose. BACTRIM (SULFAMETHOXAZOLE-TRIMETH*05/17/2017 14 - Other: See Comments Comments: My throat swells up. LATEX 05/17/2017 2 - Rash 9 - Itching Comments: Itching and welts. No wheezing or shortness of breath. PENICILLINS 07/14/2004 2 - Rash 9 - Itching Comments: Tolerated ceftriaxone during 11/2017 admission and cefepime during 12/2017 admission TETRACYCLINE 09/29/2010 2 - Rash 8 - GI Upset Comments: Emesis and diarrhea. 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 [facility] [3612] Reason For Visit History Recorded Prescriptions as of 06/17/2018 Sig: POLYETHYLENE GLYCOL 3350 17 G* Use 1-2 times daily as needed* CARVEDILOL 3.125 MG TABLET Take 1 tablet by mouth twice * AMIODARONE 200 MG TABLET Take 1 tablet by mouth once d* SIMVASTATIN 40 MG TABLET Take 1 tablet by mouth every * ISOSORBIDE MONONITRATE ER 30 * Take 3 tablets by mouth once * PREGABALIN 25 MG CAPSULE Take 1 tablet PO daily with a* ELIQUIS 5 MG TABLET TAKE ONE TABLET BY MOUTH TWIC* METOCLOPRAMIDE 5 MG TABLET Take 1 tablet by mouth three * PANTOPRAZOLE 40 MG TABLET,DEL* Take 1 tablet by mouth once d* INSULIN ASPART U-100 100 UNI* Using Sliding Scale: 150-209* SENNOSIDES 8.6 MG TABLET Take 8.6 mg by mouth once carlos* HYDROCODONE 5 MG-ACETAMINOPHE* Take 1 tablet by mouth every * TRAZODONE 50 MG TABLET Take 50 mg by mouth daily at * ONDANSETRON HCL 4 MG TABLET Take 4 mg by mouth every 8 ho* IPRATROPIUM-ALBUTEROL 0.5 MG-* Inhale 3 mL as instructed leanne* BUDESONIDE 0.5 MG/2 ML SUSPEN* Use 2 mL via nebulizer once d* INSULIN GLARGINE (U-100) 100 * Inject 50 Units subcutaneousl* INSULIN GLARGINE (U-100) 100 * Inject 36 Units subcutaneousl* NYSTATIN 100,000 UNIT/GRAM TO* Apply 1 application to affect* X BACITRACIN ZINC 500 UNIT/GRAM* Apply 1 application to affect* DEXTROMETHORPHAN-GUAIFENESIN * Take 5-10 mL by mouth every 6* NITROGLYCERIN 0.4 MG SUBLINGU* Dissolve 1 tablet under the t* OXYGEN (HOME THERAPY) Inhale 2.5 L/min as instructe* Problem List As Of Date 06/17/2018 Noted Resolved HOCM (hypertrophic obstructive cardiomyopathy) * 01/23/2018 Priority: I More... SVT (supraventricular tachycardia) ([facility]) [I47.1] 01/21/2018 More... Carotid artery disease ([facility]) [I77.9] 01/22/2018 CAD (coronary artery disease) [I25.10] Priority: E More... Hypertension [I10] Priority: L More... Hyperlipidemia [E78.5] Pneumonia [J18.9] 10/27/2017 More... COPD (chronic obstructive pulmonary disease) (H* Priority: F More... Sleep apnea [G47.30] Priority: I More... HH (hiatus hernia) [K44.9] 01/21/2018 GERD (gastroesophageal reflux disease) [K21.9] Priority: K More... More... Arthritis [M19.90] Numbness and tingling of right leg [R20.0, R20.* 01/21/2018 Depression [F32.9] Atrial fibrillation (HCC) [I48.91] INVALID FOR* Priority: C More... Uncontrolled type 2 diabetes mellitus with stag*INVALID FOR* Priority: H More... More... More... Heart failure, systolic, acute (HCC) [I50.21] INVALID FOR*01/21/2018 More... Obesity [E66.09] INVALID FOR* Priority: M More... Gout [M10.9] Pacemaker [Z95.0] Priority: D More... Chronic combined systolic and diastolic CHF (co*INVALID FOR* Priority: B More... Elevated troponin [R74.8] INVALID FOR*01/22/2018 Priority: G More... Pulmonary hypertension (HCC) [I27.20] INVALID FOR* Oral thrush [B37.0] INVALID FOR*01/21/2018 Hyponatremia [E87.1] INVALID FOR* Priority: J More... Hyperkalemia [E87.5] INVALID FOR*01/22/2018 Priority: J Chest pain in adult [R07.9] INVALID FOR*02/12/2018 Priority: A More... Acute renal failure superimposed on stage 3 chr*INVALID FOR* Priority: A More... Obesity, Class II, BMI 35-39.9 [E66.9] INVALID FOR* ESRD on dialysis (HCC) [N18.6, Z99.2] INVALID FOR* More... Encounter Status:Closed by REMI KENNEDY on 06/23/18 PROGRESS Observed: 06/16/2018 Status: COMPLETED Source: [place] 4:35 PM [facility] REPOSITORY HNO ID: [id number] Author: Tiffani Lowe Service: (none) Author Type: (none) Type: Progress Notes Filed: 06/16/2018 4:36 PM Note Text: Radiology Service Progress Note PATIENT NAME: Luz Baca DATE OF SERVICE: June 16, 2018 TIME: 4:35 PM PATIENT IDENTITY VERIFICATION COMPLETED USING TWO (2) METHODS: Patient confirmed name verbally and ID band matches.. PATIENT GENDER DATA: Female. status: : No status: NO. PATIENT RELEVANT IMPLANT DATA REVIEWED: Not Applicable RADIOLOGY DEPARTMENT: pt exam not complete,needs to be done in a hospital setting, unable to get IV ACCESS for CTA with RUNOFFS study. PERIPHERAL IV DATA: Not applicable SIGNED BY: Tiffani Lowe June 16, 2018 4:35 PM WALI CREATININE Collected: 06/16/2018 Status: F Source: [place] 3:44 PM [facility] REPOSITORY TYPE CODE TESTS RESULT OUT OF REFERENCE UNITS RANGE LAB WCRET 0.7-1.4 mg/dL [place] High Creatinine 3.6 Result Comment: Result checked and verified PROGRESS Observed: 06/16/2018 Status: COMPLETED Source: [place] 2:07 PM [facility] REPOSITORY HNO ID: [id number] Author: Donnell Cruz Service: (none) Author Type: Physician Type: Progress Notes Filed: 06/16/2018 3:24 PM Note Text: [facility], 06/16/2018: INTERVAL HISTORY: Since 02/2018 Pulmonary clinic visit, admitted to [facility] 05/19/18 with several days of chest pain and shortness of breath, discharge Dx Non STEMI, chronic atrial fibrillation, stented CAD (9), ESRD, Type 2 DM, HBP, hyperlipidemia, chronic hypoxemic respiratory failure, COPD. No change in frequency or severity of chronic cough, or volume of thick non-purulent sputum. No hemoptysis, pleuritic chest pain. Believes her legs are more edematous than usual, daughter thinks less edema. Dyspneic with any/all activities of daily living, though no different than usual. She and daughter claim she is consistently compliant with maintnenance medications prescribed; Budesonide/Ipratropium/Albuterol BID and Ipratropium/Albuterol via nebulizer, every 4-6 hours as needed for wheezing or shortness of breath. Anticipates A-V fistula construction in arm by Michael Hogan MD at [facility] 07/06/2019. Dialyzed thrice weekly via catheter Dr. Hogan placed right subclavian. PAST MEDICAL HISTORY Diagnosis Date - Arthritis - Atrial fibrillation (HCC) - CAD (coronary artery disease) stents x9, defibrillator, CABG. Seeing Dr. Cardona - Cardiac defibrillator in place - Cardiomegaly - Carotid artery disease (HCC) left - Chronic kidney disease (CKD) stage G3b/A2, moderately decreased glomerular filtration rate (GFR) between 30-44 mL/min/1.73 square meter and albuminuria creatinine ratio between 30-299 mg/g ([facility]) Dr. Martin - COPD (chronic obstructive pulmonary disease) ([facility]) Dr. Cruz - Depression - Diabetes ([facility]) - Diabetic neuropathy ([facility]) - Edema - ESRD (end stage renal disease) on dialysis ([facility]) MW, Dr. Martin - GERD (gastroesophageal reflux disease) - Gout with hyperuricemia - HH (hiatus hernia) - HOCM (hypertrophic obstructive cardiomyopathy) ([facility]) S/P Septal Myectomy in 2003. Now with LVEF 50% and mod/severe pulm HTN. - HTN (hypertension) - Hyperlipidemia - Morbid obesity with BMI of 40.0-44.9, adult (HCC) - Sleep apnea 2011 not on CPAP, unable to tolerate mask 02/2017 - SVT (supraventricular tachycardia) ([facility]) NSVT and questionable VT in 2003 post op PAST SURGICAL HISTORY Procedure Laterality Date - CHOLECYSTECTOMY HX - DIALYSIS ACCESS SYSTEM - HEART SURGERY HX 07/18/2004 Septal myectomy and CABG x2 (DEBORAH-LAD, SVG-PDA). - HYSTERECTOMY HX - IANDD PERIANAL ABSCESS - PACEMAKER with defib - PAST SURGICAL HISTORY OF left breast nodule removed - PAST SURGICAL HISTORY OF skin lesions removed FAMILY HISTORY Problem Relation Age of Onset - Hypertension Mother living at age 93, HTN - Heart Failure Mother [place] - Cancer Father age 71, lung cancer - Heart Attack Sister - COPD Brother - Heart Paternal Grandmother - Heart Paternal Grandfather - Heart Sister - Diabetes Sister - Heart Sister - Breast Cancer Sister - Diabetes Sister - Hypertension Brother - Diabetes Brother Social History Marital status: Spouse name: Years of education: Number of children: Social History Main Topics Smoking status: Former Smoker Packs/day: 2.50 Years: 43.00 Types: Cigarettes Start date: 1961 Quit date: 07/07/2004 Smokeless tobacco: Never Used Alcohol use: No Drug use: No Other Topics Concern Caffeine Concern Yes Comment:coffee 1 cup daily Special Diet No Comment:Regular Exercise No Comment:no unable, due to SOB x several months. Social History Narrative Patient and daughter live together. PHYSICAL EXAMINATION: BP 98/64 Pulse 54 Resp 18 Ht 5' 8 (1.73m) Wt 202 lb (91.6kg) SpO2 88% BMI 30.72 kg/(m2). Gen: No acute distress. Cooperative with examination. Patient appears morbidly obese, in spite of BMI 30.72. Height was not confirmed today. ENT: Sclerae clear. Nares clear. Pharynx clear, tip of uvula not visible. No halitosis. Resp: No stridor, accessory respiratory muscle use, supra- sternal or intercostal retractions. A-P diameter normal. No crackles, wheezes, pleural rubs. CV: Irregularly irregular rythm. Heart tones normal. Unable to visualize JVP, HJR. No carotid bruit. Radial pulses normal. Abd: Obese, protuberant, not distended. MSK: No kyphoscoliosis. . Ext: Warm and well perfused. Trace pitting in edematous lower legs. No clubbing, cyanosis, sclerodactyly, Raynaud's. Skin: Color dusky/cyanotic both lower legs. No ulcer, rash, eczema, urticaria, ecchymoses. Lymph: No palpable adenopathy in neck, supra-clavicular fossae. Endo: Unable to appreciate goiter. No exophthalmos, onycholysis. Neuro: Mental status normal. Affect normal. Muscle strength symmetrical. No tremor. DATA REVIEW: Echocardiogram, [facility], 05/12/2018: LV: Mild concentric LVH. D-shaped septum in diastole, paste septal motion. no regional wall motion abnormalities. Estimated EF 55%. RV: Normal size and thickness. Pacer lead within the RV. Normal systolic function. Left atrium: Severely enlarged. Right atrium: Severely enlarged. Normal atrial septum. MV: Structurally normal. No prolapse or stenosis. Trivial MR. TV: Normal valve. Moderate severe (3+) TR. RVSP estimated 77 mmHg. AV: Trileaflet, trisinus. Mild diffuse thickening. No stenosis. PV: Normal. Normal aortic root. Normal arch. IVC is dilated. No collapse of the inferior vena cava. Patient appears to be in atrial fibrillation. CTA chest,[facility], 05/19/2018: Impression: No demonstrated pulmonary embolism or arterial dissection. Findings suggest early congestive heart failure. Interpretation: Epigastric ventral hernia containing inflamed fat minimal fluid. Coronary artery calcifications. Multiple median sternotomy wires are noted consistent with surgery. Right IJ vascular line. Tip is in superior vena cava, atrial junction. Heart is enlarged. Hiatal hernia is present. Degenerative changes of the shoulders. No pneumothorax. Chronic appearing left pleural effusion/thickening with calcified pleural plaques. Right upper lobe calcified granuloma. Diffuse interlobular septal thickening. Left lower lobe scarring. Left-sided pacemaker battery pack. Calcifications are coronary arteries. Mediastinum, samuel, pulmonary arteries all appear normal. Atherosclerotic calcification aortic arch with tortuosity elongation of the arch and descending thoracic aorta. Multilevel degenerative changes of the thoracic spine. No demonstrated abnormalities the visualized upper abdomen. I have personally and independently reviewed these CTA Chest images on [facility], and I concur with the findings as described. TO PFT 03/17/2018 Spirometry ?Pre ? Pre ? Post ?Post ?Post ?Ref ? ?Urban ?% Ref ? ? ? Urban ?% Ref ? ? ? % Chg FVC ?Liters ? ? ?3.29 ?1.07 ?32 ?1.05 ?32 ?-1 FEV1 ? ? ? Liters ? ? 2.48 ?0.79 ?32 ?0.83 ?33 ?5 FEV1/FVC ? % ? ? ? 75 ?74 ? 79 [id number]% ? ?Sec ? ?7.87 ? 6.09 ?-23 Lung Volumes TLC ?Liters ? ? ?5.67 ?3.07 ?54 RV ? Liters ? ? ?2.51 ?1.74 ?69 RV/TLC ? ? % ? 46 ?57 Diffusing Capacity DLCO ? ? ? 21.5 ?8.3 ? 38 DLCO/VA ? ? 4.01 ? ? ? 4.03 ?101 IMPRESSION AND RECOMMENDATIONS: 1. Recent [facility] CT chest without pulmonary embolism, pneumonia, lung mass, emphysema; most consistent with early pulmonary edema. 2. Most recent Pulmonary Function Testing shows moderate to severe restrictive ventilatory impairment, normal expiratory flow and normal DLCO. History consistent with chronic bronchitis from cigarette smoking in past, but Pulmonary Function Testing shows NO obstructive ventilatory impairment on 07/16/2004, 11/12/2017 and 03/17/2018. Primary reason for low lung volumes and hypoxemia is obesity, pulmonary edema. 3. Obesity. Body Mass Index (BMI) today is 30.72 at current weight of 202 pounds. Normal BMI is 18.5-25, corresponding to a goal weight range of 125-170 pounds in an individual of this patient's height. The patient is at least 30 pounds overweight. - Weight loss is critical. Consider referral to Weight Management program such as Weight Watchers. Deferred to Primary Care Physician. 4. Obstructive sleep apnea on PAP Rx. - Continue PAP as prescribed with any sleep. 5. There is no pulmonary contraindication to the vascular surgery planned by Dr. Hogan, or the use of general anesthesia. - Post operative prophylaxis of DVT per protocol. - Post operative use of incentive spirometry, and out of bed to chair and hallway as directed by surgeons and staff to minimize post- operative risks of atelectasis. - Continue supplemental oxygen targeting spO2 90% or more. - Continue Budesonide/Ipratropium/Albuterol via nebulizer twice daily. - Continue Ipratropium/Albuterol via nebulizer, every 4-6 hours around the clock pre- and post-operatively. - Perioperative pulmonary consultation is available from me and/or my [facility] colleagues at [facility] if needed at the discretion of the surgeon. I addressed the questions of the patient and her daughter, and they expressed understanding and acceptance of my answers. Donnell Cruz MD, [facility] [address] [place] [address] P: [phone] F: [phone] [email or web address] Observed: 06/16/2018 Status: COMPLETED Source: [place] 1:30 PM [facility] REPOSITORY Office Visit (PULMWS) LUZ BACA ([id number]) 1940 F Date Time Provider Department 06/16/18 1:30 PM DONNELL CRUZ PULTOSHA During your visit today, we recorded the following information about you: Pulse Respiration Blood pressure Weight 54/minute 18/minute 98/64 91.6 kg Height 1.727 m Michael Kevin RHODES 06/16/2018 2:01 PM Addendum ROS: General: Generally feels fatigued. Appetite good. Eyes, Ears, nose, throat: denies post nasal drip. denies rhinorrhea. denies purulent nasal discharge. occasional epistaxis, self limiting. denies hoarseness. Vision stable. Cardiac: denies angina, notes edema- improved, notes orthopnea. GI: denies heartburn. denies dysphagia. denies diarrhea- c/o abdominal cramping and constipation Uro/CARE ASSOCIATE: denies dysuria. denies hesitancy. denies nocturia. Menses: post menopausal Musculoskeletal: chronic lower extremity pain. Neuro: denies headache, denies focal weakness. denies tremor. Skin: lower extremity discoloration bilaterally. Otherwise negative. Reviewed with patient, confirmed as documented by Michael Brown LPN. TO Donnell Curz MD 06/16/2018 3:24 PM Signed [facility], 06/16/2018: INTERVAL HISTORY: Since 02/2018 Pulmonary clinic visit, admitted to [facility] 05/19/18 with several days of chest pain and shortness of breath, discharge Dx Non STEMI, chronic atrial fibrillation, stented CAD (9), ESRD, Type 2 DM, HBP, hyperlipidemia, chronic hypoxemic respiratory failure, COPD. No change in frequency or severity of chronic cough, or volume of thick non-purulent sputum. No hemoptysis, pleuritic chest pain. Believes her legs are more edematous than usual, daughter thinks less edema. Dyspneic with any/all activities of daily living, though no different than usual. She and daughter claim she is consistently compliant with maintnenance medications prescribed; Budesonide/Ipratropium/Albuterol BID and Ipratropium/Albuterol via nebulizer, every 4-6 hours as needed for wheezing or shortness of breath. Anticipates A-V fistula construction in arm by Michael Hogan MD at [facility] 07/06/2019. Dialyzed thrice weekly via catheter Dr. Hogan placed right subclavian. PAST MEDICAL HISTORY Diagnosis Date - Arthritis - Atrial fibrillation (HCC) - CAD (coronary artery disease) stents x9, defibrillator, CABG. Seeing Dr. Cardona - Cardiac defibrillator in place - Cardiomegaly - Carotid artery disease (HCC) left - Chronic kidney disease (CKD) stage G3b/A2, moderately decreased glomerular filtration rate (GFR) between 30-44 mL/min/1.73 square meter and albuminuria creatinine ratio between 30-299 mg/g ([facility]) Dr. Martin - COPD (chronic obstructive pulmonary disease) ([facility]) Dr. Cruz - Depression - Diabetes ([facility]) - Diabetic neuropathy ([facility]) - Edema - ESRD (end stage renal disease) on dialysis ([facility]) MW, Dr. Martin - GERD (gastroesophageal reflux disease) - Gout with hyperuricemia - HH (hiatus hernia) - HOCM (hypertrophic obstructive cardiomyopathy) ([facility]) S/P Septal Myectomy in 2003. Now with LVEF 50% and mod/severe pulm HTN. - HTN (hypertension) - Hyperlipidemia - Morbid obesity with BMI of 40.0-44.9, adult ([facility]) - Sleep apnea 2011 not on CPAP, unable to tolerate mask 02/2017 - SVT (supraventricular tachycardia) ([facility]) NSVT and questionable VT in 2003 post op PAST SURGICAL HISTORY Procedure Laterality Date - CHOLECYSTECTOMY HX - DIALYSIS ACCESS SYSTEM - HEART SURGERY HX 07/18/2004 Septal myectomy and CABG x2 (DEBORAH-LAD, SVG-PDA). - HYSTERECTOMY HX - IANDD PERIANAL ABSCESS - PACEMAKER with defib - PAST SURGICAL HISTORY OF left breast nodule removed - PAST SURGICAL HISTORY OF skin lesions removed FAMILY HISTORY Problem Relation Age of Onset - Hypertension Mother living at age 93, HTN - Heart Failure Mother NE - Cancer Father age 71, lung cancer - Heart Attack Sister - COPD Brother - Heart Paternal Grandmother - Heart Paternal Grandfather - Heart Sister - Diabetes Sister - Heart Sister - Breast Cancer Sister - Diabetes Sister - Hypertension Brother - Diabetes Brother Social History Marital status: Spouse name: Years of education: Number of children: Social History Main Topics Smoking status: Former Smoker Packs/day: 2.50 Years: 43.00 Types: Cigarettes Start date: 1961 Quit date: 07/07/2004 Smokeless tobacco: Never Used Alcohol use: No Drug use: No Other Topics Concern Caffeine Concern Yes Comment:coffee 1 cup daily Special Diet No Comment:Regular Exercise No Comment:no unable, due to SOB x several months. Social History Narrative Patient and daughter live together. PHYSICAL EXAMINATION: BP 98/64 Pulse 54 Resp 18 Ht 5' 8 (1.73m) Wt 202 lb (91.6kg) SpO2 88% BMI 30.72 kg/(m2). Gen: No acute distress. Cooperative with examination. Patient appears morbidly obese, in spite of BMI 30.72. Height was not confirmed today. ENT: Sclerae clear. Nares clear. Pharynx clear, tip of uvula not visible. No halitosis. Resp: No stridor, accessory respiratory muscle use, supra- sternal or intercostal retractions. A-P diameter normal. No crackles, wheezes, pleural rubs. CV: Irregularly irregular rythm. Heart tones normal. Unable to visualize JVP, HJR. No carotid bruit. Radial pulses normal. Abd: Obese, protuberant, not distended. MSK: No kyphoscoliosis. . Ext: Warm and well perfused. Trace pitting in edematous lower legs. No clubbing, cyanosis, sclerodactyly, Raynaud's. Skin: Color dusky/cyanotic both lower legs. No ulcer, rash, eczema, urticaria, ecchymoses. Lymph: No palpable adenopathy in neck, supra-clavicular fossae. Endo: Unable to appreciate goiter. No exophthalmos, onycholysis. Neuro: Mental status normal. Affect normal. Muscle strength symmetrical. No tremor. DATA REVIEW: Echocardiogram, [facility], 05/12/2018: LV: Mild concentric LVH. D-shaped septum in diastole, paste septal motion. no regional wall motion abnormalities. Estimated EF 55%. RV: Normal size and thickness. Pacer lead within the RV. Normal systolic function. Left atrium: Severely enlarged. Right atrium: Severely enlarged. Normal atrial septum. MV: Structurally normal. No prolapse or stenosis. Trivial MR. TV: Normal valve. Moderate severe (3+) TR. RVSP estimated 77 mmHg. AV: Trileaflet, trisinus. Mild diffuse thickening. No stenosis. PV: Normal. Normal aortic root. Normal arch. IVC is dilated. No collapse of the inferior vena cava. Patient appears to be in atrial fibrillation. CTA chest,[facility], 05/19/2018: Impression: No demonstrated pulmonary embolism or arterial dissection. Findings suggest early congestive heart failure. Interpretation: Epigastric ventral hernia containing inflamed fat minimal fluid. Coronary artery calcifications. Multiple median sternotomy wires are noted consistent with surgery. Right IJ vascular line. Tip is in superior vena cava, atrial junction. Heart is enlarged. Hiatal hernia is present. Degenerative changes of the shoulders. No pneumothorax. Chronic appearing left pleural effusion/thickening with calcified pleural plaques. Right upper lobe calcified granuloma. Diffuse interlobular septal thickening. Left lower lobe scarring. Left-sided pacemaker battery pack. Calcifications are coronary arteries. Mediastinum, samuel, pulmonary arteries all appear normal. Atherosclerotic calcification aortic arch with tortuosity elongation of the arch and descending thoracic aorta. Multilevel degenerative changes of the thoracic spine. No demonstrated abnormalities the visualized upper abdomen. I have personally and independently reviewed these CTA Chest images on [facility], and I concur with the findings as described. TO PFT 03/17/2018 Spirometry ?Pre ? Pre ? Post ?Post ?Post ?Ref ? ?Urban ?% Ref ? ? ? Urban ?% Ref ? ? ? % Chg FVC ?Liters ? ? ?3.29 ?1.07 ?32 ?1.05 ?32 ?-1 FEV1 ? ? ? Liters ? ? 2.48 ?0.79 ?32 ?0.83 ?33 ?5 FEV1/FVC ? % ? ? ? 75 ?74 ? 79 [id number]% ? ?Sec ? ?7.87 ? 6.09 ?-23 Lung Volumes TLC ?Liters ? ? ?5.67 ?3.07 ?54 RV ? Liters ? ? ?2.51 ?1.74 ?69 RV/TLC ? ? % ? 46 ?57 Diffusing Capacity DLCO ? ? ? 21.5 ?8.3 ? 38 DLCO/VA ? ? 4.01 ? ? ? 4.03 ?101 IMPRESSION AND RECOMMENDATIONS: 1. Recent [facility] CT chest without pulmonary embolism, pneumonia, lung mass, emphysema; most consistent with early pulmonary edema. 2. Most recent Pulmonary Function Testing shows moderate to severe restrictive ventilatory impairment, normal expiratory flow and normal DLCO. History consistent with chronic bronchitis from cigarette smoking in past, but Pulmonary Function Testing shows NO obstructive ventilatory impairment on 07/16/2004, 11/12/2017 and 03/17/2018. Primary reason for low lung volumes and hypoxemia is obesity, pulmonary edema. 3. Obesity. Body Mass Index (BMI) today is 30.72 at current weight of 202 pounds. Normal BMI is 18.5-25, corresponding to a goal weight range of 125-170 pounds in an individual of this patient's height. The patient is at least 30 pounds overweight. - Weight loss is critical. Consider referral to Weight Management program such as [employer]. Deferred to Primary Care Physician. 4. Obstructive sleep apnea on PAP Rx. - Continue PAP as prescribed with any sleep. 5. There is no pulmonary contraindication to the vascular surgery planned by Dr. Hogan, or the use of general anesthesia. - Post operative prophylaxis of DVT per protocol. - Post operative use of incentive spirometry, and out of bed to chair and hallway as directed by surgeons and staff to minimize post- operative risks of atelectasis. - Continue supplemental oxygen targeting spO2 90% or more. - Continue Budesonide/Ipratropium/Albuterol via nebulizer twice daily. - Continue Ipratropium/Albuterol via nebulizer, every 4-6 hours around the clock pre- and post-operatively. - Perioperative pulmonary consultation is available from me and/or my [facility] colleagues at [facility] if needed at the discretion of the surgeon. I addressed the questions of the patient and her daughter, and they expressed understanding and acceptance of my answers. Donnell Cruz MD, [facility] [address] [place] [id number] P: [phone] F: [phone] Donnell Cruz MD 06/16/2018 2:26 PM Signed 1. Recent [facility] CT chest without pulmonary embolism (blood clots), pneumonia, lung mass, emphysema. 2. Most recent Pulmonary Function Testing shows normal expiratory flow and normal gas exchange of the lung. 3. Primary reason for low lung volumes and need for oxygen is weight. 4. There is no pulmonary contraindication to the vascular surgery planned by Dr. Hogan, or the use of general anesthesia. - Post operative prophylaxis of DVT per protocol. - Post operative use of incentive spirometry, and out of bed to chair and hallway as directed by surgeons and staff to minimize post- operative risks of atelectasis. - Continue supplemental oxygen targeting spO2 90% or more. - Continue Budesonide/Ipratropium/Albuterol via nebulizer twice daily. - Continue Ipratropium/Albuterol via nebulizer, every 4-6 hours around the clock pre- and post-operatively. - Pulmonary consultation is available from me and/or my [facility] colleagues at [facility] if needed farrah-operatively. Donnell Cruz MD, [facility] [address] [address] P: [phone] F: [phone] [email or web address] Referring Provider: MANDY ADKINS [[id number]] Allergies As of Date: 06/16/2018 Noted Allergy Reaction ASPIRIN 01/20/2018 14 - Other: See Comments Comments: Patient states that she bled out every orifice, sts not allowed to take it at all. Patient states she was bleeding out of nose and mouth after one dose. BACTRIM (SULFAMETHOXAZOLE-TRIMETH*05/17/2017 14 - Other: See Comments Comments: My throat swells up. LATEX 05/17/2017 2 - Rash 9 - Itching Comments: Itching and welts. No wheezing or shortness of breath. PENICILLINS 07/14/2004 2 - Rash 9 - Itching Comments: Tolerated ceftriaxone during 11/2017 admission and cefepime during 12/2017 admission TETRACYCLINE 09/29/2010 2 - Rash 8 - GI Upset Comments: Emesis and diarrhea. ATORVASTATIN 05/17/2017 2 - Rash CODEINE 05/17/2017 14 - Other: See Comments Comments: Numbness DILAUDID (HYDROMORPHONE (BULK)) 05/17/2017 1 - Mental Status Change MEPERIDINE 07/14/2004 PENTAZOCINE 07/14/2004 PIOGLITAZONE 05/17/2017 16 - Unknown PROPOXYPHENE 07/14/2004 Date Reviewed: 06/16/2018 Reviewed by: Donnell Cruz - Fully Assessed Reason for Visit: Established Patient [175] Cmt: 3 month follow up. Pre-op assessment. Reason For Visit History Recorded Primary Visit Diagnosis:Chronic hypoxemic respiratory failure ([facility]) [J96.11] Other Visit Diagnoses:Chronic obstructive pulmonary disease, unspecified COPD type ([facility]) [J44.9] Chronic combined systolic and diastolic CHF (congestive heart failure) ([facility]) [I50.42] Encounter for preoperative pulmonary examination [Z01.811] Prescriptions as of 06/16/2018 Sig: IV CONTRAST (RADIOLOGY PROCED* CTA ABD - No IV access, inser* CARVEDILOL 3.125 MG TABLET Take 1 tablet by mouth twice * AMIODARONE 200 MG TABLET Take 1 tablet by mouth once d* SIMVASTATIN 40 MG TABLET Take 1 tablet by mouth every * ISOSORBIDE MONONITRATE ER 30 * Take 3 tablets by mouth once * PREGABALIN 25 MG CAPSULE Take 1 tablet PO daily with a* ELIQUIS 5 MG TABLET TAKE ONE TABLET BY MOUTH TWIC* METOCLOPRAMIDE 5 MG TABLET Take 1 tablet by mouth three * PANTOPRAZOLE 40 MG TABLET,DEL* Take 1 tablet by mouth once d* INSULIN ASPART U-100 100 UNI* Using Sliding Scale: 150-209* SENNOSIDES 8.6 MG TABLET Take 8.6 mg by mouth once carlos* HYDROCODONE 5 MG-ACETAMINOPHE* Take 1 tablet by mouth every * TRAZODONE 50 MG TABLET Take 50 mg by mouth daily at * ONDANSETRON HCL 4 MG TABLET Take 4 mg by mouth every 8 ho* IPRATROPIUM-ALBUTEROL 0.5 MG-* Inhale 3 mL as instructed leanne* BUDESONIDE 0.5 MG/2 ML SUSPEN* Use 2 mL via nebulizer once d* INSULIN GLARGINE (U-100) 100 * Inject 50 Units subcutaneousl* INSULIN GLARGINE (U-100) 100 * Inject 36 Units subcutaneousl* BACITRACIN ZINC 500 UNIT/GRAM* Apply 1 application to affect* NYSTATIN 100,000 UNIT/GRAM TO* Apply 1 application to affect* DEXTROMETHORPHAN-GUAIFENESIN * Take 5-10 mL by mouth every 6* NITROGLYCERIN 0.4 MG SUBLINGU* Dissolve 1 tablet under the t* OXYGEN (HOME THERAPY) Inhale 2.5 L/min as instructe* Problem List As Of Date 06/16/2018 Noted Resolved HOCM (hypertrophic obstructive cardiomyopathy) * 01/23/2018 Priority: I More... SVT (supraventricular tachycardia) (HCC) [I47.1] 01/21/2018 More... Carotid artery disease (HCC) [I77.9] 01/22/2018 CAD (coronary artery disease) [I25.10] Priority: E More... Hypertension [I10] Priority: L More... Hyperlipidemia [E78.5] Pneumonia [J18.9] 10/27/2017 More... COPD (chronic obstructive pulmonary disease) (H* Priority: F More... Sleep apnea [G47.30] Priority: I More... HH (hiatus hernia) [K44.9] 01/21/2018 GERD (gastroesophageal reflux disease) [K21.9] Priority: K More... More... Arthritis [M19.90] Numbness and tingling of right leg [R20.0, R20.* 01/21/2018 Depression [F32.9] Atrial fibrillation (HCC) [I48.91] INVALID FOR* Priority: C More... Uncontrolled type 2 diabetes mellitus with stag*INVALID FOR* Priority: H More... More... More... Heart failure, systolic, acute (HCC) [I50.21] INVALID FOR*01/21/2018 More... Obesity [E66.09] INVALID FOR* Priority: M More... Gout [M10.9] Pacemaker [Z95.0] Priority: D More... Chronic combined systolic and diastolic CHF (co*INVALID FOR* Priority: B More... Elevated troponin [R74.8] INVALID FOR*01/22/2018 Priority: G More... Pulmonary hypertension (HCC) [I27.20] INVALID FOR* Oral thrush [B37.0] INVALID FOR*01/21/2018 Hyponatremia [E87.1] INVALID FOR* Priority: J More... Hyperkalemia [E87.5] INVALID FOR*01/22/2018 Priority: J Chest pain in adult [R07.9] INVALID FOR*02/12/2018 Priority: A More... Acute renal failure superimposed on stage 3 chr*INVALID FOR* Priority: A More... Obesity, Class II, BMI 35-39.9 [E66.9] INVALID FOR* ESRD on dialysis (HCC) [N18.6, Z99.2] INVALID FOR* More... Notes for Staff Discussed this visit Other instructions from your clinician: 1. Recent [facility] CT chest without pulmonary embolism (blood clots), pneumonia, lung mass, emphysema. 2. Most recent Pulmonary Function Testing shows normal expiratory flow and normal gas exchange of the lung. 3. Primary reason for low lung volumes and need for oxygen is weight. 4. There is no pulmonary contraindication to the vascular surgery planned by Dr. Hogan, or the use of general anesthesia. - Post operative prophylaxis of DVT per protocol. - Post operative use of incentive spirometry, and out of bed to chair and hallway as directed by surgeons and staff to minimize post-operative risks of atelectasis. - Continue supplemental oxygen targeting spO2 90% or more. - Continue Budesonide/Ipratropium/Albuterol via nebulizer twice daily. - Continue Ipratropium/Albuterol via nebulizer, every 4-6 hours around the clock pre- and post-operatively. - Pulmonary consultation is available from me and/or my [facility] colleagues at [facility] if needed farrah-operatively. Donnell Cruz MD, [facility] [address] [place] [address] P: [phone] F: [phone] [email or web address] Visit Notes: >> Michael Brown [employer] Gwen Jun 16, 2018 1:26 PM Status: Addendum ROS: General: Generally feels fatigued. Appetite good. Eyes, Ears, nose, throat: denies post nasal drip. denies rhinorrhea. denies purulent nasal discharge. occasional epistaxis, self limiting. denies hoarseness. Vision stable. Cardiac: denies angina, notes edema- improved, notes orthopnea. GI: denies heartburn. denies dysphagia. denies diarrhea- c/o abdominal cramping and constipation Uro/CARE ASSOCIATE: denies dysuria. denies hesitancy. denies nocturia. Menses: post menopausal Musculoskeletal: chronic lower extremity pain. Neuro: denies headache, denies focal weakness. denies tremor. Skin: lower extremity discoloration bilaterally. Otherwise negative. Reviewed with patient, confirmed as documented by Michael Brown LPN. TO Follow Up: Discussed this visit Disposition: Return in about 6 months (around 12/15/2018). Follow-up and Disposition History Recorded Encounter Status:Closed by DONNELL CRUZ MD on 06/16/18 JONA Observed: 06/16/2018 Status: COMPLETED Source: [place] 12:00 AM [facility] REPOSITORY Telephone (FAMPWS) LUZ BACA ([id number]) 1940 F Date Time Provider Department 06/16/18 JAMESON KAMARA) [facility] During your visit today, we recorded the following information about you: Erinn Gallardomelania RHODES 06/16/2018 11:21 AM Signed Cristina a nurse with [facility] reports she saw pt at home. Pt has c/o upper transverse abdominal pain/under ribs. Pt relates this pain to being constipated. Pt had told Cristina that on the she had 4 formed bm's and a bout with diarrhea. Yesterday the pt told Cristina that she did not have a bm on the and Cristina had to show pt where she had said she did. Pt had forgotten. Since abdominal pain had returned pt felt she must be constipated so gave herself 2 enemas and had caregiver give her 3 enemas. Pt also took Senna. Pt also reports to Cristina she had to take tramadol because of pain. Pt rates pain a 6/10, constant cramping. Pt does not have a fever. Cristina reports bowel sounds were hypoactive, abdomen was soft not distended. Cristina reports daughter picked up Miralax thinking if pt had a daily dose that it would regulate pt.s bowel movements. Asking if advises this and if so what dosage. Pt has a CT of abd/pel today. Please review and advise. Call Cristina @ [phone] with any messages. Erinn Kamara MD 06/16/2018 1:57 PM Signed I would avoid tramadol for this pain as it could worsen constipation. Miralax is a good option and can be taken daily to BID for symptoms. Push PO fluids, increase fiber, and call if symptoms change or worsen. Sohail Longoria Ma 06/16/2018 3:51 PM Addendum [facility] Nurse Cristina notified of results, verbalizes understanding of instructions. Med list updated. Allergies As of Date: 06/16/2018 Noted Allergy Reaction ASPIRIN 01/20/2018 14 - Other: See Comments Comments: Patient states that she bled out every orifice, sts not allowed to take it at all. Patient states she was bleeding out of nose and mouth after one dose. BACTRIM (SULFAMETHOXAZOLE-TRIMETH*05/17/2017 14 - Other: See Comments Comments: My throat swells up. LATEX 05/17/2017 2 - Rash 9 - Itching Comments: Itching and welts. No wheezing or shortness of breath. PENICILLINS 07/14/2004 2 - Rash 9 - Itching Comments: Tolerated ceftriaxone during 11/2017 admission and cefepime during 12/2017 admission TETRACYCLINE 09/29/2010 2 - Rash 8 - GI Upset Comments: Emesis and diarrhea. ATORVASTATIN 05/17/2017 2 - Rash CODEINE 05/17/2017 14 - Other: See Comments Comments: Numbness DILAUDID (HYDROMORPHONE (BULK)) 05/17/2017 1 - Mental Status Change MEPERIDINE 07/14/2004 PENTAZOCINE 07/14/2004 PIOGLITAZONE 05/17/2017 16 - Unknown PROPOXYPHENE 07/14/2004 Date Reviewed: 06/16/2018 Reviewed by: Donnell Cruz - Fully Assessed Reason for Visit: Abdominal Pain [1] Order(s):polyethylene glycol 3350 (MIRALAX) 17 gram/dose powderUse 1-2 times daily as needed for constipation.Disp: 1 BottleRfl: Prescriptions as of 06/16/2018 Sig: POLYETHYLENE GLYCOL 3350 17 G* Use 1-2 times daily as needed* IV CONTRAST (RADIOLOGY PROCED* CTA ABD - No IV access, inser* CARVEDILOL 3.125 MG TABLET Take 1 tablet by mouth twice * AMIODARONE 200 MG TABLET Take 1 tablet by mouth once d* SIMVASTATIN 40 MG TABLET Take 1 tablet by mouth every * ISOSORBIDE MONONITRATE ER 30 * Take 3 tablets by mouth once * PREGABALIN 25 MG CAPSULE Take 1 tablet PO daily with a* ELIQUIS 5 MG TABLET TAKE ONE TABLET BY MOUTH TWIC* METOCLOPRAMIDE 5 MG TABLET Take 1 tablet by mouth three * PANTOPRAZOLE 40 MG TABLET,DEL* Take 1 tablet by mouth once d* INSULIN ASPART U-100 100 UNI* Using Sliding Scale: 150-209* SENNOSIDES 8.6 MG TABLET Take 8.6 mg by mouth once carlos* HYDROCODONE 5 MG-ACETAMINOPHE* Take 1 tablet by mouth every * TRAZODONE 50 MG TABLET Take 50 mg by mouth daily at * ONDANSETRON HCL 4 MG TABLET Take 4 mg by mouth every 8 ho* IPRATROPIUM-ALBUTEROL 0.5 MG-* Inhale 3 mL as instructed leanne* BUDESONIDE 0.5 MG/2 ML SUSPEN* Use 2 mL via nebulizer once d* INSULIN GLARGINE (U-100) 100 * Inject 50 Units subcutaneousl* INSULIN GLARGINE (U-100) 100 * Inject 36 Units subcutaneousl* BACITRACIN ZINC 500 UNIT/GRAM* Apply 1 application to affect* NYSTATIN 100,000 UNIT/GRAM TO* Apply 1 application to affect* DEXTROMETHORPHAN-GUAIFENESIN * Take 5-10 mL by mouth every 6* NITROGLYCERIN 0.4 MG SUBLINGU* Dissolve 1 tablet under the t* OXYGEN (HOME THERAPY) Inhale 2.5 L/min as instructe* Problem List As Of Date 06/16/2018 Noted Resolved HOCM (hypertrophic obstructive cardiomyopathy) * 01/23/2018 Priority: I More... SVT (supraventricular tachycardia) (HCC) [I47.1] 01/21/2018 More... Carotid artery disease (HCC) [I77.9] 01/22/2018 CAD (coronary artery disease) [I25.10] Priority: E More... Hypertension [I10] Priority: L More... Hyperlipidemia [E78.5] Pneumonia [J18.9] 10/27/2017 More... COPD (chronic obstructive pulmonary disease) (H* Priority: F More... Sleep apnea [G47.30] Priority: I More... HH (hiatus hernia) [K44.9] 01/21/2018 GERD (gastroesophageal reflux disease) [K21.9] Priority: K More... More... Arthritis [M19.90] Numbness and tingling of right leg [R20.0, R20.* 01/21/2018 Depression [F32.9] Atrial fibrillation (HCC) [I48.91] INVALID FOR* Priority: C More... Uncontrolled type 2 diabetes mellitus with stag*INVALID FOR* Priority: H More... More... More... Heart failure, systolic, acute (HCC) [I50.21] INVALID FOR*01/21/2018 More... Obesity [E66.09] INVALID FOR* Priority: M More... Gout [M10.9] Pacemaker [Z95.0] Priority: D More... Chronic combined systolic and diastolic CHF (co*INVALID FOR* Priority: B More... Elevated troponin [R74.8] INVALID FOR*01/22/2018 Priority: G More... Pulmonary hypertension (HCC) [I27.20] INVALID FOR* Oral thrush [B37.0] INVALID FOR*01/21/2018 Hyponatremia [E87.1] INVALID FOR* Priority: J More... Hyperkalemia [E87.5] INVALID FOR*01/22/2018 Priority: J Chest pain in adult [R07.9] INVALID FOR*02/12/2018 Priority: A More... Acute renal failure superimposed on stage 3 chr*INVALID FOR* Priority: A More... Obesity, Class II, BMI 35-39.9 [E66.9] INVALID FOR* ESRD on dialysis (HCC) [N18.6, Z99.2] INVALID FOR* More... Prescriptions ordered this encounter Disp Refills Start End POLYETHYLENE GLYCOL 3350 17 GRAM/DOS* 1 Choco* 06/16/2018 Class: Med Update Sig: Use 1-2 times daily as needed for constipation. Cosign required by JAMESON KAMARA)[[id number]] Encounter Status:Closed by SOHAIL LONGORIA MA on 06/16/18 HOSP Observed: 06/15/2018 Status: COMPLETED Source: [place] 12:00 AM [facility] REPOSITORY Patient:Luz Baca MRN: <[id number]> Height:5' 8(1.727 m) Weight:0 lb (0 kg) Outpatient Medications as of 07/12/18: bacitracin zinc (ANTIBIOTIC, BACITRACIN ZINC,) 500 unit/gram ointment polyethylene glycol 3350 (MIRALAX) 17 gram/dose powder carvedilol (COREG) 3.125 mg tablet amiodarone (PACERONE) 200 mg tablet simvastatin (ZOCOR) 40 mg tablet isosorbide mononitrate ER (IMDUR) 30 mg 24 hr tablet pregabalin (LYRICA) 25 mg capsule ELIQUIS 5 mg tab(s) metoclopramide HCl (REGLAN) [address] (PROTONIX) 40 mg tablet insulin aspart U-100 (NOVOLOG FLEXPEN U-100 INSULIN) 100 unit/mL inpn senna (SENNA) 8.6 mg tab HYDROcodone-acetaminophen (NORCO) 5-325 mg per tablet ondansetron (ZOFRAN) 4 mg tablet ipratropium-albuterol (DUONEB) 0.5 mg-3 mg(2.5 mg base)/3 mL nebu budesonide (PULMICORT) 0.5 mg/2 mL nebulizer solution insulin glargine (LANTUS SOLOSTAR U-100 INSULIN) 100 unit/mL (3 mL) inpn insulin glargine (LANTUS SOLOSTAR U-100 INSULIN) 100 unit/mL (3 mL) inpn nystatin (NYSTOP) powder guaiFENesin-dextromethorphan (ROBITUSSIN DM) 100-10 mg/5 mL syrup nitroglycerin sublingual (NITROQUICK) 0.4 mg SL tablet OXYGEN, HOME THERAPY, Admission/Clinic Administered Medications as of 07/12/18: NaCl 0.9% iv infusion clindamycin 900 mg in D5W 50 mL (CLEOCIN) Problem List: CAD (coronary artery disease) [I25.10] Hypertension [I10] Hyperlipidemia [E78.5] COPD (chronic obstructive pulmonary disease) (HCC) [J44.9] Sleep apnea [G47.30] GERD (gastroesophageal reflux disease) [K21.9] Arthritis [M19.90] Depression [F32.9] Atrial fibrillation (HCC) [I48.91] Uncontrolled type 2 diabetes mellitus with stage 3 chronic kidney disease, with long-term current use of insulin (HCC) [E11.22, E11.65, N18.3, Z79.4] Obesity [E66.09] Gout [M10.9] Pacemaker [Z95.0] Chronic combined systolic and diastolic CHF (congestive heart failure) (HCC) [I50.42] Pulmonary hypertension (HCC) [I27.20] Hyponatremia [E87.1] Acute renal failure superimposed on stage 3 chronic kidney disease (HCC) [N17.9, N18.3] Obesity, Class II, BMI 35-39.9 [E66.9] ESRD on dialysis (HCC) [N18.6, Z99.2] Chronic hypoxemic respiratory failure (HCC) [J96.11] Allergies: Aspirin Bactrim [Sulfamethoxazole-Trimethoprim] Latex Penicillins Tetracycline Atorvastatin Codeine Dilaudid [Hydromorphone (Bulk)] Meperidine Pentazocine Pioglitazone Propoxyphene Date Verified: 07/12/18 Lab Values Lab Value Units Date High Low POTA* 5.3 mmol/L 07/12/2018 5.1 3.7 Progress Notes ([facility]): Thiago Ruano RN 07/11/2018 1:47 PM Signed Call from Yelena at [facility] regarding Ms. Baca. States they are having problems with her catheter being very sluggish during diaylsis- wondering if Dr. Hogan would be able to change it out tomorrow in hopes of preventing patient from needing to come to [place] again for the catheter exchange. Informed Yelena I would forward request to Dr. Hogan to see if this could be arranged. Michael Hogan, 07/11/2018 2:05 PM Signed Noted. Will inform OR Progress Notes ([facility]): KRISSY Byers, [place] 07/07/2018 10:28 AM Sign at close encounter Radiology Service Progress Note PATIENT NAME: Luz Baca DATE OF SERVICE: July 07, 2018 TIME: 10:27 AM PATIENT IDENTITY VERIFICATION COMPLETED USING TWO (2) METHODS: Patient confirmed name verbally and ID band matches.. PATIENT GENDER DATA: Female. status: : No status: NO. PATIENT RELEVANT IMPLANT DATA REVIEWED: Yes CONTRAST INDUCED NEPHROPATHY RISK FACTORS: Patient age > 60 years and PT ON DIALYSIS PT GOING TOMORROW CREATININE: Creatinine Date Value Ref Range Status 06/30/2018 4.15 (H) 0.58 - 0.96 mg/dL Final 06/30/2018 4.16 (H) 0.58 - 0.96 mg/dL Final 02/18/2018 3.15 (H) 0.58 - 0.96 mg/dL Final eGFR-All Other Races Date Value Ref Range Status 06/30/2018 10 . Final Comment: eGFR (Estimated GFR) Units of measure: mL/min/1.73 meters squared eGFR is derived from the reexpressed MDRD Study equation using the following parameters: serum creatinine, age, gender and race. The creatinine assay has been calibrated to be traceable to IDMS. An eGFR <60 mL/min/1.73m2 for >3 months is consistent with chronic kidney disease. Refer to KDOQI guidelines for clinical interpretation. In patients with unstable renal function, e.g. those with acute kidney injury, the eGFR may not accurately reflect actual GFR. 06/30/2018 10 . Final Comment: eGFR (Estimated GFR) Units of measure: mL/min/1.73 meters squared eGFR is derived from the reexpressed MDRD Study equation using the following parameters: serum creatinine, age, gender and race. The creatinine assay has been calibrated to be traceable to IDMS. An eGFR <60 mL/min/1.73m2 for >3 months is consistent with chronic kidney disease. Refer to KDOQI guidelines for clinical interpretation. In patients with unstable renal function, e.g. those with acute kidney injury, the eGFR may not accurately reflect actual GFR. eGFR- Date Value Ref Range Status 06/30/2018 13 Final 06/30/2018 13 Final P.O.C.T. RESULTS: N/A July 07, 2018 RADIOLOGIST NOTIFIED?: No ALLERGIES: Reviewed and unchanged CONTRAST ALLERGY: NO. PERIPHERAL IV ACCESS: Ambulatory: IV type: A peripheral IV was started in the Left antecubital site with a Angio cath: 20 gauge., Site assessment: Clean,Dry and Intact, Site disposition Discontinued RADIOLOGY DEPARTMENT: CT; Exam(s) Completed: CTA Aorta/leg runoff SIGNED BY: KRISSY Byers July 07, 2018 10:27 AM PROGRESS Observed: 06/14/2018 Status: COMPLETED Source: [place] 4:14 PM [facility] REPOSITORY HNO ID: [id number] Author: Adriel Pringle Service: (none) Author Type: Nurse Practitioner Type: Progress Notes Filed: 06/14/2018 4:25 PM Note Text: 06/14/2018 Patient presents with: Leg Edema: blistering , pain ful x 2 days SUBJECTIVE: This is a 77 year old that is here today for concern for blistering on right lower leg that started yesterday. She is a CHF and dialysis patient, so daughter was concerned and wanted to be sure that she be seen. She states that the legs do not feel swollen like they have in the past, but the blistering is something that she had when they were. She noticed the blisters last evening. They do seem to be getting bigger. They are not painful themselves, but the leg pain still continues. She had lyrica increased recently. She denies any heat to touch, erythema, fever, chills, drainage, itching. She does not wear compression stockings. She denies any increase in SOB, CP, cough, palpitations. She states that he BP was 50s/30s after dialysis yesterday, they wanted to sent her to ER and she refused. She states that she took her BP at home and it slowly started to come back up. She states that she felt lowsy when it was low. She denies any current feelings like she had, lightheadedness, dizziness. PAST MEDICAL HISTORY Diagnosis Date - Arthritis - Atrial fibrillation ([facility]) - CAD (coronary artery disease) stents x9, defibrillator, CABG. Seeing Dr. Cardona - Cardiac defibrillator in place - Cardiomegaly - Carotid artery disease ([facility]) left - Chronic kidney disease (CKD) stage G3b/A2, moderately decreased glomerular filtration rate (GFR) between 30-44 mL/min/1.73 square meter and albuminuria creatinine ratio between 30-299 mg/g ([facility]) Dr. Martin - COPD (chronic obstructive pulmonary disease) ([facility]) Dr. Olbrych - Depression - Diabetes ([facility]) - Diabetic neuropathy ([facility]) - Edema - ESRD (end stage renal disease) on dialysis ([facility]) MWF, Dr. Martin - GERD (gastroesophageal reflux disease) - Gout with hyperuricemia - HH (hiatus hernia) - HOCM (hypertrophic obstructive cardiomyopathy) ([facility]) S/P Septal Myectomy in 2003. Now with LVEF 50% and mod/severe pulm HTN. - HTN (hypertension) - Hyperlipidemia - Morbid obesity with BMI of 40.0-44.9, adult ([facility]) - Sleep apnea 2011 not on CPAP, unable to tolerate mask 02/2017 - SVT (supraventricular tachycardia) ([facility]) NSVT and questionable VT in 2003 post op ALLERGIES Aspirin; Bactrim [Sulfamethoxazole-Trimethoprim]; Latex; Penicillins; Tetracycline; Atorvastatin; Codeine; Dilaudid [Hydromorphone (Bulk)]; Meperidine; Pentazocine; Pioglitazone; Propoxyphene MEDICATIONS Current Outpatient Prescriptions: carvedilol (COREG) 3.125 mg tablet Take 1 tablet by mouth twice daily with meals. amiodarone (PACERONE) 200 mg tablet Take 1 tablet by mouth once daily. simvastatin (ZOCOR) 40 mg tablet Take 1 tablet by mouth every morning. isosorbide mononitrate ER (IMDUR) 30 mg 24 hr tablet Take 3 tablets by mouth once daily. pregabalin (LYRICA) 25 mg capsule Take 1 tablet PO daily with an additional 1 tablet PO after dialysis MWF ELIQUIS 5 mg tab(s) TAKE ONE TABLET BY MOUTH TWICE DAILY metoclopramide HCl (REGLAN) 5 mg tablet Take 1 tablet by mouth three times daily. pantoprazole DR (PROTONIX) 40 mg tablet Take 1 tablet by mouth once daily. insulin aspart U-100 (NOVOLOG FLEXPEN U-100 INSULIN) 100 unit/mL inpn Using Sliding Scale: 150-209 1 unit, 210-269 2 units, 270- 329 3 units, 330-389 4 units, 390-449 5 units senna (SENNA) 8.6 mg tab Take 8.6 mg by mouth once daily. HYDROcodone-acetaminophen (NORCO) 5-325 mg per tablet Take 1 tablet by mouth every 8 hours as needed. traZODone (DESYREL) 50 mg tablet Take 50 mg by mouth daily at bedtime. ondansetron (ZOFRAN) 4 mg tablet Take 4 mg by mouth every 8 hours as needed. ipratropium-albuterol (DUONEB) 0.5 mg-3 mg(2.5 mg base)/3 mL nebu Inhale 3 mL as instructed every 4 hours while awake. And prn for wheezing/shortness of breath. budesonide (PULMICORT) 0.5 mg/2 mL nebulizer solution Use 2 mL via nebulizer once daily. INHALE 2 ML BY NEBULIZER OVER 5-15 MINUTES EVERY 12 HOURS. insulin glargine (LANTUS SOLOSTAR U-100 INSULIN) 100 unit/mL (3 mL) inpn Inject 50 Units subcutaneously every morning. insulin glargine (LANTUS SOLOSTAR U-100 INSULIN) 100 unit/mL (3 mL) inpn Inject 36 Units subcutaneously daily at bedtime. bacitracin (ANTIBIOTIC, BACITRACIN ZINC,) ointment Apply 1 application to affected area twice daily. nystatin (NYSTOP) powder Apply 1 application to affected area three times daily. guaiFENesin-dextromethorphan (ROBITUSSIN DM) 100-10 mg/5 mL syrup Take 5-10 mL by mouth every 6 hours as needed for Cough. nitroglycerin sublingual (NITROQUICK) 0.4 mg SL tablet Dissolve 1 tablet under the tongue every 5 minutes as needed. OXYGEN, HOME THERAPY, Inhale 2.5 L/min as instructed continuous. 3 L/min when leaves home. No current facility-administered medications for this visit. Medications and allergies reviewed by this provider. SOCIAL HISTORY Social History Marital status: Spouse name: Years of education: Number of children: Social History Main Topics Smoking status: Former Smoker Packs/day: 2.50 Years: 43.00 Types: Cigarettes Start date: 1961 Quit date: 07/07/2004 Smokeless tobacco: Never Used Alcohol use: No Drug use: No Other Topics Concern Caffeine Concern Yes Comment:coffee 1 cup daily Special Diet No Comment:Regular Exercise No Comment:no unable, due to SOB x several months. Social History Narrative Patient and daughter live together. REVIEW OF SYSTEMS see HPI OBJECTIVE: BP 120/78 Pulse (!) 59 Resp 16 Wt 83.9 kg (185 lb) SpO2 88% BMI 28.98 kg/m? . Vital signs reviewed by this provider. PHYSICAL EXAMINATION: General appearance: Well appearing, alert, in no acute distress, well-hydrated, well nourished., Obese and wearing O2 in wheelchair Lungs: Lungs clear to auscultation. No wheezing, rhonchi, rales, diminished Heart: RRR without murmur, gallop, or rubs. No ectopy Extremities: No edema. Pulses: 1+, Positive findings: bilateral lower legs are thick in texture and purple in color. Right medial anterior lower leg with 1.5 x just less than 2 cm fluid filled blister and a 1cm x 0.25cm fluid filled blister. No erythema, heat, drainage, No cords. No calf tenderness. Sabrina's sign negative. ASSESSMENT/PLAN: 1. Blister - ICD9: 919.2, ICD10: T14.8XXA (primary diagnosis) - do not feel that there is an infectious cause. Educated on what to watch for in case it does change and asked to follow up in that case - encouraged her to start compression stockings and continue to elevate - encouraged her to show dialysis caregivers and home nurse to help monitoring over time and follow up if worsening - encouraged to communicate with dialysis if feeling like edema is returning 2. PVD (peripheral vascular disease) ([facility]) - ICD9: 443.9, ICD10: I73.9 - COMPRESSION STOCKINGS 3. Chronic combined systolic and diastolic CHF (congestive heart failure) ([facility]) - ICD9: 428.42, 428.0, ICD10: I50.42 - COMPRESSION STOCKINGS 4. Acute renal failure superimposed on stage 3 chronic kidney disease, unspecified acute renal failure type ([facility]) - ICD9: 584.9, 585.3, ICD10: N17.9, N18.3 - COMPRESSION STOCKINGS Adriel Pringle APRN.ELÍAS CNOV Observed: 06/14/2018 Status: COMPLETED Source: [place] 1:20 PM [facility] REPOSITORY [facility] LUZ BACA G ([id number]) 1940 F Date Time Provider Department 06/14/18 1:20 PM ADRIEL PRINGLE (ELÍAS) ANTOINE During your visit today, we recorded the following information about you: Pulse Respiration Blood pressure Weight 59/minute 16/minute 120/78 83.9 kg Adriel Pringle APRN.CNP 06/14/2018 4:25 PM Signed 06/14/2018 Patient presents with: Leg Edema: blistering , pain ful x 2 days SUBJECTIVE: This is a 77 year old that is here today for concern for blistering on right lower leg that started yesterday. She is a CHF and dialysis patient, so daughter was concerned and wanted to be sure that she be seen. She states that the legs do not feel swollen like they have in the past, but the blistering is something that she had when they were. She noticed the blisters last evening. They do seem to be getting bigger. They are not painful themselves, but the leg pain still continues. She had lyrica increased recently. She denies any heat to touch, erythema, fever, chills, drainage, itching. She does not wear compression stockings. She denies any increase in SOB, CP, cough, palpitations. She states that he BP was 50s/30s after dialysis yesterday, they wanted to sent her to ER and she refused. She states that she took her BP at home and it slowly started to come back up. She states that she felt lowsy when it was low. She denies any current feelings like she had, lightheadedness, dizziness. PAST MEDICAL HISTORY Diagnosis Date - Arthritis - Atrial fibrillation (HCC) - CAD (coronary artery disease) stents x9, defibrillator, CABG. Seeing Dr. Cardona - Cardiac defibrillator in place - Cardiomegaly - Carotid artery disease ([facility]) left - Chronic kidney disease (CKD) stage G3b/A2, moderately decreased glomerular filtration rate (GFR) between 30-44 mL/min/1.73 square meter and albuminuria creatinine ratio between 30-299 mg/g ([facility]) Dr. Martin - COPD (chronic obstructive pulmonary disease) ([facility]) Dr. Cruz - Depression - Diabetes ([facility]) - Diabetic neuropathy ([facility]) - Edema - ESRD (end stage renal disease) on dialysis ([facility]) MW, Dr. Martin - GERD (gastroesophageal reflux disease) - Gout with hyperuricemia - HH (hiatus hernia) - HOCM (hypertrophic obstructive cardiomyopathy) ([facility]) S/P Septal Myectomy in 2003. Now with LVEF 50% and mod/severe pulm HTN. - HTN (hypertension) - Hyperlipidemia - Morbid obesity with BMI of 40.0-44.9, adult ([facility]) - Sleep apnea 2011 not on CPAP, unable to tolerate mask 02/2017 - SVT (supraventricular tachycardia) ([facility]) NSVT and questionable VT in 2003 post op ALLERGIES Aspirin; Bactrim [Sulfamethoxazole-Trimethoprim]; Latex; Penicillins; Tetracycline; Atorvastatin; Codeine; Dilaudid [Hydromorphone (Bulk)]; Meperidine; Pentazocine; Pioglitazone; Propoxyphene MEDICATIONS Current Outpatient Prescriptions: carvedilol (COREG) 3.125 mg tablet Take 1 tablet by mouth twice daily with meals. amiodarone (PACERONE) 200 mg tablet Take 1 tablet by mouth once daily. simvastatin (ZOCOR) 40 mg tablet Take 1 tablet by mouth every morning. isosorbide mononitrate ER (IMDUR) 30 mg 24 hr tablet Take 3 tablets by mouth once daily. pregabalin (LYRICA) 25 mg capsule Take 1 tablet PO daily with an additional 1 tablet PO after dialysis MWF ELIQUIS 5 mg tab(s) TAKE ONE TABLET BY MOUTH TWICE DAILY metoclopramide HCl (REGLAN) 5 mg tablet Take 1 tablet by mouth three times daily. pantoprazole DR (PROTONIX) 40 mg tablet Take 1 tablet by mouth once daily. insulin aspart U-100 (NOVOLOG FLEXPEN U-100 INSULIN) 100 unit/mL inpn Using Sliding Scale: 150-209 1 unit, 210-269 2 units, 270-329 3 units, 330-389 4 units, 390-449 5 units senna (SENNA) 8.6 mg tab Take 8.6 mg by mouth once daily. HYDROcodone-acetaminophen (NORCO) 5-325 mg per tablet Take 1 tablet by mouth every 8 hours as needed. traZODone (DESYREL) 50 mg tablet Take 50 mg by mouth daily at bedtime. ondansetron (ZOFRAN) 4 mg tablet Take 4 mg by mouth every 8 hours as needed. ipratropium-albuterol (DUONEB) 0.5 mg-3 mg(2.5 mg base)/3 mL nebu Inhale 3 mL as instructed every 4 hours while awake. And prn for wheezing/shortness of breath. budesonide (PULMICORT) 0.5 mg/2 mL nebulizer solution Use 2 mL via nebulizer once daily. INHALE 2 ML BY NEBULIZER OVER 5-15 MINUTES EVERY 12 HOURS. insulin glargine (LANTUS SOLOSTAR U-100 INSULIN) 100 unit/mL (3 mL) inpn Inject 50 Units subcutaneously every morning. insulin glargine (LANTUS SOLOSTAR U-100 INSULIN) 100 unit/mL (3 mL) inpn Inject 36 Units subcutaneously daily at bedtime. bacitracin (ANTIBIOTIC, BACITRACIN ZINC,) ointment Apply 1 application to affected area twice daily. nystatin (NYSTOP) powder Apply 1 application to affected area three times daily. guaiFENesin-dextromethorphan (ROBITUSSIN DM) 100-10 mg/5 mL syrup Take 5-10 mL by mouth every 6 hours as needed for Cough. nitroglycerin sublingual (NITROQUICK) 0.4 mg SL tablet Dissolve 1 tablet under the tongue every 5 minutes as needed. OXYGEN, HOME THERAPY, Inhale 2.5 L/min as instructed continuous. 3 L/min when leaves home. No current facility-administered medications for this visit. Medications and allergies reviewed by this provider. SOCIAL HISTORY Social History Marital status: Spouse name: Years of education: Number of children: Social History Main Topics Smoking status: Former Smoker Packs/day: 2.50 Years: 43.00 Types: Cigarettes Start date: 1961 Quit date: 07/07/2004 Smokeless tobacco: Never Used Alcohol use: No Drug use: No Other Topics Concern Caffeine Concern Yes Comment:coffee 1 cup daily Special Diet No Comment:Regular Exercise No Comment:no unable, due to SOB x several months. Social History Narrative Patient and daughter live together. REVIEW OF SYSTEMS see HPI OBJECTIVE: BP 120/78 Pulse (!) 59 Resp 16 Wt 83.9 kg (185 lb) SpO2 88% BMI 28.98 kg/m? . Vital signs reviewed by this provider. PHYSICAL EXAMINATION: General appearance: Well appearing, alert, in no acute distress, well-hydrated, well nourished., Obese and wearing O2 in wheelchair Lungs: Lungs clear to auscultation. No wheezing, rhonchi, rales, diminished Heart: RRR without murmur, gallop, or rubs. No ectopy Extremities: No edema. Pulses: 1+, Positive findings: bilateral lower legs are thick in texture and purple in color. Right medial anterior lower leg with 1.5 x just less than 2 cm fluid filled blister and a 1cm x 0.25cm fluid filled blister. No erythema, heat, drainage, No cords. No calf tenderness. Sabrina's sign negative. ASSESSMENT/PLAN: 1. Blister - ICD9: 919.2, ICD10: T14.8XXA (primary diagnosis) - do not feel that there is an infectious cause. Educated on what to watch for in case it does change and asked to follow up in that case - encouraged her to start compression stockings and continue to elevate - encouraged her to show dialysis caregivers and home nurse to help monitoring over time and follow up if worsening - encouraged to communicate with dialysis if feeling like edema is returning 2. PVD (peripheral vascular disease) ([facility]) - ICD9: 443.9, ICD10: I73.9 - COMPRESSION STOCKINGS 3. Chronic combined systolic and diastolic CHF (congestive heart failure) ([facility]) - ICD9: 428.42, 428.0, ICD10: I50.42 - COMPRESSION STOCKINGS 4. Acute renal failure superimposed on stage 3 chronic kidney disease, unspecified acute renal failure type ([facility]) - ICD9: 584.9, 585.3, ICD10: N17.9, N18.3 - COMPRESSION STOCKINGS Adriel Pringle APRN.BACKHAUL DRIVER Allergies As of Date: 06/14/2018 Noted Allergy Reaction ASPIRIN 01/20/2018 14 - Other: See Comments Comments: Patient states that she bled out every orifice, sts not allowed to take it at all. Patient states she was bleeding out of nose and mouth after one dose. BACTRIM (SULFAMETHOXAZOLE-TRIMETH*05/17/2017 14 - Other: See Comments Comments: My throat swells up. LATEX 05/17/2017 2 - Rash 9 - Itching Comments: Itching and welts. No wheezing or shortness of breath. PENICILLINS 07/14/2004 2 - Rash 9 - Itching Comments: Tolerated ceftriaxone during 11/2017 admission and cefepime during 12/2017 admission TETRACYCLINE 09/29/2010 2 - Rash 8 - GI Upset Comments: Emesis and diarrhea. ATORVASTATIN 05/17/2017 2 - Rash CODEINE 05/17/2017 14 - Other: See Comments Comments: Numbness DILAUDID (HYDROMORPHONE (BULK)) 05/17/2017 1 - Mental Status Change MEPERIDINE 07/14/2004 PENTAZOCINE 07/14/2004 PIOGLITAZONE 05/17/2017 16 - Unknown PROPOXYPHENE 07/14/2004 Date Reviewed: 06/14/2018 Reviewed by: Tiffani Rao Ct - Fully Assessed Reason for Visit: Leg Edema [769] Cmt: blistering , pain ful x 2 days Primary Visit Diagnosis:Blister [T14.8XXA] Other Visit Diagnoses:PVD (peripheral vascular disease) ([facility]) [I73.9] Chronic combined systolic and diastolic CHF (congestive heart failure) ([facility]) [I50.42] Acute renal failure superimposed on stage 3 chronic kidney disease, unspecified acute renal failure type ([facility]) [N17.9, N18.3] Order(s):COMPRESSION STOCKINGS [[id number]] Order #: [id number] Prescriptions as of 06/14/2018 Sig: CARVEDILOL 3.125 MG TABLET Take 1 tablet by mouth twice * AMIODARONE 200 MG TABLET Take 1 tablet by mouth once d* SIMVASTATIN 40 MG TABLET Take 1 tablet by mouth every * ISOSORBIDE MONONITRATE ER 30 * Take 3 tablets by mouth once * PREGABALIN 25 MG CAPSULE Take 1 tablet PO daily with a* ELIQUIS 5 MG TABLET TAKE ONE TABLET BY MOUTH TWIC* METOCLOPRAMIDE 5 MG TABLET Take 1 tablet by mouth three * PANTOPRAZOLE 40 MG TABLET,DEL* Take 1 tablet by mouth once d* INSULIN ASPART U-100 100 UNI* Using Sliding Scale: 150-209* SENNOSIDES 8.6 MG TABLET Take 8.6 mg by mouth once carlos* HYDROCODONE 5 MG-ACETAMINOPHE* Take 1 tablet by mouth every * TRAZODONE 50 MG TABLET Take 50 mg by mouth daily at * ONDANSETRON HCL 4 MG TABLET Take 4 mg by mouth every 8 ho* IPRATROPIUM-ALBUTEROL 0.5 MG-* Inhale 3 mL as instructed leanne* BUDESONIDE 0.5 MG/2 ML SUSPEN* Use 2 mL via nebulizer once d* INSULIN GLARGINE (U-100) 100 * Inject 50 Units subcutaneousl* INSULIN GLARGINE (U-100) 100 * Inject 36 Units subcutaneousl* BACITRACIN ZINC 500 UNIT/GRAM* Apply 1 application to affect* NYSTATIN 100,000 UNIT/GRAM TO* Apply 1 application to affect* DEXTROMETHORPHAN-GUAIFENESIN * Take 5-10 mL by mouth every 6* NITROGLYCERIN 0.4 MG SUBLINGU* Dissolve 1 tablet under the t* OXYGEN (HOME THERAPY) Inhale 2.5 L/min as instructe* Problem List As Of Date 06/14/2018 Noted Resolved HOCM (hypertrophic obstructive cardiomyopathy) * 01/23/2018 Priority: I More... SVT (supraventricular tachycardia) ([facility]) [I47.1] 01/21/2018 More... Carotid artery disease ([facility]) [I77.9] 01/22/2018 CAD (coronary artery disease) [I25.10] Priority: E More... Hypertension [I10] Priority: L More... Hyperlipidemia [E78.5] Pneumonia [J18.9] 10/27/2017 More... COPD (chronic obstructive pulmonary disease) (H* Priority: F More... Sleep apnea [G47.30] Priority: I More... HH (hiatus hernia) [K44.9] 01/21/2018 GERD (gastroesophageal reflux disease) [K21.9] Priority: K More... More... Arthritis [M19.90] Numbness and tingling of right leg [R20.0, R20.* 01/21/2018 Depression [F32.9] Atrial fibrillation (HCC) [I48.91] INVALID FOR* Priority: C More... Uncontrolled type 2 diabetes mellitus with stag*INVALID FOR* Priority: H More... More... More... Heart failure, systolic, acute (HCC) [I50.21] INVALID FOR*01/21/2018 More... Obesity [E66.09] INVALID FOR* Priority: M More... Gout [M10.9] Pacemaker [Z95.0] Priority: D More... Chronic combined systolic and diastolic CHF (co*INVALID FOR* Priority: B More... Elevated troponin [R74.8] INVALID FOR*01/22/2018 Priority: G More... Pulmonary hypertension (HCC) [I27.20] INVALID FOR* Oral thrush [B37.0] INVALID FOR*01/21/2018 Hyponatremia [E87.1] INVALID FOR* Priority: J More... Hyperkalemia [E87.5] INVALID FOR*01/22/2018 Priority: J Chest pain in adult [R07.9] INVALID FOR*02/12/2018 Priority: A More... Acute renal failure superimposed on stage 3 chr*INVALID FOR* Priority: A More... Obesity, Class II, BMI 35-39.9 [E66.9] INVALID FOR* Encounter Status:Closed by ADRIEL PRINGLE on 06/14/18 PROGRESS Observed: 06/08/2018 Status: COMPLETED Source: [place] 5:23 PM [facility] [place] REPOSITORY HNO ID: [id number] Author: Sean Han Ma Service: (none) Author Type: (none) Type: Progress Notes Filed: 06/08/2018 5:23 PM Note Text: Order faxed to [facility] pharmacy PROGRESS Observed: 06/08/2018 Status: COMPLETED Source: [place] 4:48 PM [facility] [place] REPOSITORY HNO ID: [id number] Author: Remi OsheaRn) Brent Service: (none) Author Type: Registered Nurse Type: Progress Notes Filed: 06/08/2018 4:58 PM Note Text: PRIMARY CARE COORDINATION QUICK NOTE Provider Action/FYI TC to patient to inform of increased dose Patient identified by name and date . TC to patient instructed PCP talked to kidney doctor and pt is to increase her Lyrica, for pain in legs. Pt to take Lyrica 25 mg 1 tablet every morning and one M W F pt is to take a second pill after dialysis. Informed a new prescription has been called into pharmacy. Pt verbalized understanding. PROGRESS Observed: 06/08/2018 Status: COMPLETED Source: [place] 4:12 PM [facility] [place] REPOSITORY HNO ID: [id number] Author: Jameson Adams) Koffi Service: (none) Author Type: Physician Type: Progress Notes Filed: 06/08/2018 4:58 PM Note Text: Order placed. Thanks! PROGRESS Observed: 06/08/2018 Status: COMPLETED Source: [place] 9:18 AM [facility] REPOSITORY HNO ID: [id number] Author: Remi Briseno) Brent Service: (none) Author Type: Registered Nurse Type: Progress Notes Filed: 06/08/2018 2:57 PM Note Text: TRANSITION CARE MANAGEMENT (TCM) FOLLOW-UP NOTE Provider Action/FYI Order for Lyrica pended per Dr. Swartz's MISSILEMAN recommendation Patient identified by name and date of : YES Spoke to nurse from [facility] Summary: TC from nurse, Anahi, states she spoke to Russell Snider NP for Dr. Swartz. Russell states it is safe to give patient Lyrica 25 mg daily with an additional 25 mg after dialysis on Wednesday, Wednesday and Wednesday. Remi Kennedy RN Discussed patient's low BP at home, by home health nurse and in office. Pt reports lightheadedness with standing. PCP is asking if dialysis could take less fluid off to prevent symptoms. Nurse states pt was having SOB so she was taking more fluid off to prevent CHF. Informed pt's breathing was great yesterday and pt was the best she's been in a while in regards to her CHF. Nurse states that's because she actually took extra fluid off on Wednesday due to her SOB. Asked about dosing of Lyrica, informed PCP read about renal dosing and it mentioned supplementing with Lyrica so he was originally going to order it daily but after reading the supplemental dose he wrote for 25 mg -- after dialysis. He wasn't sure it he could write for daily. States she will check with Dr. Swartz's MISSILEMAN and call PCC back. Watermelon Inspector plan for next outreach: Will follow up next week Remi Kennedy RN June 08, 2018 PROGRESS Observed: 06/07/2018 Status: COMPLETED Source: [place] 3:14 PM [facility] REPOSITORY HNO ID: [id number] Author: Remi Briseno) Brent Service: (none) Author Type: Registered Nurse Type: Progress Notes Filed: 06/07/2018 4:12 PM Note Text: PRIMARY CARE COORDINATION IN OFFICE VISIT WITH PCP Patient has been identified by name and date of . PCP Assessment/Plan: Reviewed PCP plan with patient using Teach Back Reviewed home BP readings and pt symptomatic with some lightheadedness with standing from sitting position PCP discussed pt changing position slowly PCC will call Dr. Martin' office regarding taking less fluid off pt during dialysis Discussed pt's bilateral LE pain from knees down to feet. States past several days pain has been constant and throbbing, making it very difficult to sleep. Pt will start Lyrica three days/week after dialysis PCC will call Dr. Martin' office regarding approval of dosing of Lyrica, whether only 3 days/week or daily PCC Plan of Care: Patient concerns: Throbbing bilateral LE pain PCC Interventions: TC to [facility], left message to please call PCC back regarding 2 questions/concerns with patient. Remi Kennedy RN June 07, 2018 4:12 PM Next Office Visit: 07/05/2018 Plan For Next Call: One week Remi Kennedy RN June 07, 2018 PROGRESS Observed: 06/07/2018 Status: COMPLETED Source: [place] 1:28 PM [facility] [place] REPOSITORY O ID: [id number] Author: Jameson Adams) Koffi Service: (none) Author Type: Physician Type: Progress Notes Filed: 06/07/2018 6:15 PM Note Text: Chief Complaint Patient presents with: f/u hypotension , weakness HPI Luz Baca is a 77 year old female who presents here today for Above Complaints. Accompanied today by daughter. Complaining today of pain in her feet and lower legs for the last 3-4 days which started suddenly without erythema. Described as throbbing pain. Has history of diabetic neuropathy and is no longer taking gabapentin since she was in the [facility]. Previous dose was not helping with neuropathy. Has not tried lyrica. Patient has noted hypotension here and at home. Has been following up with Dr. Martin regarding CKD and is on HD MWF through central line/port. States that she does not feel lightheaded or dizzy after dialysis, but occasionally after standing feels off balance for a couple seconds. Denies falls or syncope. Has walker at home she uses for stability. COPD well controlled on current regimen and 3 L oxygen via [place]. Patient admits to weakness since discharge from hospital. Following up with PT 3 times per week which is helping slowly. Noted during discussion that patient's central line/port is not dressed today. States that she gets a reaction/rash from any kind of tape. Discussed importance of keeping area covered as this is high risk for infection. Reviewed recent labs with patient. Past medical history, appointments, medications, allergies reviewed. Previous Medical History PAST MEDICAL HISTORY Diagnosis Date - Arthritis - Atrial fibrillation (HCC) - CAD (coronary artery disease) stents x9, defibrillator, CABG. Seeing Dr. Cardona - Cardiac defibrillator in place - Cardiomegaly - Carotid artery disease ([facility]) left - Chronic kidney disease (CKD) stage G3b/A2, moderately decreased glomerular filtration rate (GFR) between 30-44 mL/min/1.73 square meter and albuminuria creatinine ratio between 30-299 mg/g ([facility]) Dr. Martin - COPD (chronic obstructive pulmonary disease) ([facility]) Dr. Cruz - Depression - Diabetes ([facility]) - Diabetic neuropathy ([facility]) - Edema - GERD (gastroesophageal reflux disease) - Gout with hyperuricemia - HH (hiatus hernia) - HOCM (hypertrophic obstructive cardiomyopathy) ([facility]) S/P Septal Myectomy in 2003. Now with LVEF 50% and mod/severe pulm HTN. - HTN (hypertension) - Hyperlipidemia - Morbid obesity with BMI of 40.0-44.9, adult ([facility]) - Sleep apnea 2011 not on CPAP, unable to tolerate mask 02/2017 - SVT (supraventricular tachycardia) ([facility]) NSVT and questionable VT in 2003 post op Previous Surgical History PAST SURGICAL HISTORY Procedure Laterality Date - CHOLECYSTECTOMY HX - DIALYSIS ACCESS SYSTEM - HEART SURGERY HX 07/18/2004 Septal myectomy and CABG x2 (DEBORAH-LAD, SVG-PDA). - HYSTERECTOMY HX - IANDD PERIANAL ABSCESS - PACEMAKER with defib - PAST SURGICAL HISTORY OF left breast nodule removed - PAST SURGICAL HISTORY OF skin lesions removed Family History FAMILY HISTORY Problem Relation Age of Onset - Hypertension Mother living at age 93, HTN - Heart Failure Mother [place] - Cancer Father age 71, lung cancer - Heart Attack Sister - COPD Brother - Heart Paternal Grandmother - Heart Paternal Grandfather - Heart Sister - Diabetes Sister - Heart Sister - Breast Cancer Sister - Diabetes Sister - Hypertension Brother - Diabetes Brother Patient Allergies ALLERGIES Allergen Reactions - Aspirin Other: See Comments Patient states that she bled out every orifice, sts not allowed to take it at all. Patient states she was bleeding out of nose and mouth after one dose. - Bactrim [Sulfametho* Other: See Comments My throat swells up. - Latex Rash, Itching Itching and welts. No wheezing or shortness of breath. - Penicillins Rash, Itching Tolerated ceftriaxone during 11/2017 admission and cefepime during 12/2017 admission - Tetracycline Rash, GI Upset Emesis and diarrhea. - Atorvastatin Rash - Codeine Other: See Comments Numbness - Dilaudid [Hydromorp* Mental Status Change - Meperidine - Pentazocine - Pioglitazone Unknown - Propoxyphene Current Medications Current Outpatient Prescriptions on File Prior to Visit: iv contrast (will be provided with radiology test) CTA ABD/PEL LE - No IV access, insert saline lock prior to the sedation, infusion, injection for imaging exam. Discontinue saline lock post exam. If Pt. has a central line or IVAD, may access for administration according to line specific nursing protocol. Once exam is complete flush line and de-access according to line specific nursing protocol in the CT contrast administration guidelines link. ELIQUIS 5 mg tab(s) TAKE ONE TABLET BY MOUTH TWICE DAILY metoclopramide HCl (REGLAN) 5 mg tablet Take 1 tablet by mouth three times daily. isosorbide mononitrate ER (IMDUR) 60 mg 24 hr tablet Take 1.5 tablets by mouth once daily. pantoprazole DR (PROTONIX) 40 mg tablet Take 1 tablet by mouth once daily. insulin aspart U-100 (NOVOLOG FLEXPEN U-100 INSULIN) 100 unit/mL inpn Using Sliding Scale: 150-209 1 unit, 210-269 2 units, 270- 329 3 units, 330-389 4 units, 390-449 5 units simvastatin (ZOCOR) 20 mg tablet Take 2 tablets by mouth every morning. senna (SENNA) 8.6 mg tab Take 8.6 mg by mouth once daily. HYDROcodone-acetaminophen (NORCO) 5-325 mg per tablet Take 1 tablet by mouth every 8 hours as needed. traZODone (DESYREL) 50 mg tablet Take 50 mg by mouth daily at bedtime. traMADol (ULTRAM) 50 mg tablet Take 50 mg by mouth every 8 hours as needed. ondansetron (ZOFRAN) 4 mg tablet Take 4 mg by mouth every 8 hours as needed. ipratropium-albuterol (DUONEB) 0.5 mg-3 mg(2.5 mg base)/3 mL nebu Inhale 3 mL as instructed every 4 hours while awake. And prn for wheezing/shortness of breath. budesonide (PULMICORT) 0.5 mg/2 mL nebulizer solution Use 2 mL via nebulizer once daily. INHALE 2 ML BY NEBULIZER OVER 5-15 MINUTES EVERY 12 HOURS. amiodarone (PACERONE) 200 mg tablet Take 1 tablet by mouth once daily. carvedilol (COREG) 3.125 mg tablet Take 1 tablet by mouth twice daily with meals. insulin glargine (LANTUS SOLOSTAR U-100 INSULIN) 100 unit/mL (3 mL) inpn Inject 50 Units subcutaneously every morning. insulin glargine (LANTUS SOLOSTAR U-100 INSULIN) 100 unit/mL (3 mL) inpn Inject 36 Units subcutaneously daily at bedtime. bacitracin (ANTIBIOTIC, BACITRACIN ZINC,) ointment Apply 1 application to affected area twice daily. nystatin (NYSTOP) powder Apply 1 application to affected area three times daily. guaiFENesin-dextromethorphan (ROBITUSSIN DM) 100-10 mg/5 mL syrup Take 5-10 mL by mouth every 6 hours as needed for Cough. nitroglycerin sublingual (NITROQUICK) 0.4 mg SL tablet Dissolve 1 tablet under the tongue every 5 minutes as needed. OXYGEN, HOME THERAPY, Inhale 2.5 L/min as instructed continuous. 3 L/min when leaves home. No current facility-administered medications on file prior to visit. Social History Social History Marital status: Spouse name: Years of education: Number of children: Social History Main Topics Smoking status: Former Smoker Packs/day: 2.50 Years: 43.00 Types: Cigarettes Start date: 1961 Quit date: 07/07/2004 Smokeless tobacco: Never Used Alcohol use: No Drug use: No Other Topics Concern Caffeine Concern Yes Comment:coffee 1 cup daily Special Diet No Comment:Regular Exercise No Comment:no unable, due to SOB x several months. Social History Narrative Patient and daughter live together. Review of Symptoms REVIEW OF SYSTEMS GENERAL: No weight loss, malaise or fevers RESPIRATORY: Negative for cough, hemoptysis, wheezing, COPD, dyspnea or shortness of breath CARDIOVASCULAR: Negative for chest pain, leg swelling, hypertension, CHF or palpitations GI: Constipation SKIN: Negative for lesions, rash, and itching EXAM: BP 108/58 Pulse 63 Temp 36.3 ?C (97.3 ?F) (Temporal Artery) Resp 20 SpO2 95% General Appearance: Well appearing, alert, in no acute distress, well-hydrated, well nourished.. Skin: Skin color, texture, turgor normal, no suspicious rashes or lesions. Lungs: Lungs clear to auscultation. No wheezing, rhonchi, rales. Heart: RRR without murmur, gallop, or rubs. No ectopy. Abdomen: Normal abdominal exam, Abdomen soft, non-tender. Bowel sounds normal. No masses, organomegaly. Extremities: chronic skin changes 2/2 venous insufficiency. Health Maintenance List DTAP,TDAP,TD(1 - Tdap) due on 1960 COLORECTAL CANCER SCREENING,SEE MODIFIER due on 1991 BONE DENSITY due on 2006 ADULT PREVNAR-13 due on 2006 PNEUMOVAX AGE 65 AND OVER WITH 5YR LOOKBACK(1) due on 2006 INFLUENZA(1) due on 06/18/2018 STATIN MED ADHERENCE due on 06/18/2018 DIABETES MED ADHERENCE due on 06/18/2018 DAMION/ARB MED PRESCRIBED due on 06/23/2018 DILATED RETINAL EXAM due on 10/27/2018 HBA1C due on 11/25/2018 DIABETIC FOOT EXAM due on 01/31/2019 SERUM CREATININE due on 02/18/2019 HEMOGLOBIN/HEMATOCRIT due on 05/10/2019 ANNUAL PCP TEAM CHRONIC DISEASE VISIT due on 05/19/2019 URINE ALBUMIN:CREATININE RATIO due on 05/25/2019 LDL CHOLESTEROL due on 05/25/2019 BLOOD PRESSURE CONTROLLED due on 06/06/2019 Data reviewed Component Latest Ref Rng AND Units 05/03/2018 05/04/2018 05/10/2018 05/25/2018 WBC 3.70 - 11.00 k/uL 6.43 6.97 RBC 3.90 - 5.20 m/uL 4.06 3.81 (L) Hemoglobin 11.5 - 15.5 g/dL 12.3 11.5 Hematocrit 36.0 - 46.0 % 41.1 37.9 MCV 80.0 - 100.0 fL 101.2 (H) 99.5 MCH 26.0 - 34.0 pG 30.3 30.2 MCHC 30.5 - 36.0 g/dL 29.9 (L) 30.3 (L) RDW-CV 11.5 - 15.0 % 15.2 (H) 14.7 Platelet Count 150 - 400 k/uL 174 163 MPV 9.0 - 12.7 fL 10.4 10.2 Neut% % 62.1 59.7 Abs Neut (ANC) 1.45 - 7.50 k/uL 3.97 4.16 Lymph% % 22.7 26.3 Abs Lymph 1.00 - 4.00 k/uL 1.46 1.83 Stoddard% % 10.4 10.3 Abs Stoddard <0.87 k/uL 0.67 0.72 Eosin% % 3.9 3.0 Abs Eosin <0.46 k/uL 0.25 0.21 Baso% % 0.9 0.7 Abs Baso <0.11 k/uL 0.06 0.05 Nucleated Reds 0 /100 WBC 0.0 0.0 Absolute nRBC <0.01 k/uL <0.01 <0.01 Diff Type Auto Diff Auto Diff Cholesterol, Total <200 mg/dL 111 Triglyceride <150 mg/dL 91 HDL Cholesterol >39 mg/dL 38 (L) LDL Cholesterol <100 mg/dL 55 Non HDL Cholesterol <130 mg/dL 73 Fasting Time hrs 12 VLDL Cholesterol <30 mg/dL 18 TC:HDL Ratio <5.10 2.92 LDL:HDL Ratio <2.54 1.45 Shigella spp./Enteroinvasive E.coli DNA Not Detected Campylobacter jejuni/coli DNA Not Detected Shiga toxin-producing gene(s) Not Detected Salmonella spp. DNA Not Detected Creatinine, Ur Random (UCRR) 20 - 300 mg/dL 417.1 (H) Albumin, Urine Random 0.0 - 23.0 mg/L 42.3 (H) Albumin/Creat Ratio 0 - 30 mg/g 10 Specimen Request Specimen received in sterile container. Test Results Positive for lactoferrin, which may indicate presence of fecal white blood cells (A) Hemoglobin A1C 4.3 - 5.6 % 6.8 (H) Estimated Average Glucose mg/dL 148 C. difficile PCR Specimen rejected. Formed stool received, only non-formed stool is acceptable for . . . Occult Blood, Stool Negative Positive (A) ALT 7 - 38 U/L 13 TSH 0.400 - 5.500 uU/mL 2.110 ASSESSMENT/PLAN: 1. Diabetic polyneuropathy associated with type 2 diabetes mellitus (HCC) - ICD9: 250.60, 357.2, ICD10: E11.42 (primary diagnosis) Will start patient on low dose lyrica for patients on HD. Will confirm appropriate dose with nephrology and call with further recommendations. - PREGABALIN 25 MG CAPSULE 2. Chronic obstructive pulmonary disease, unspecified COPD type ([facility]) - ICD9: 496, ICD10: J44.9 Controlled on current regimen. 3. ESRD (end stage renal disease) on dialysis ([facility]) - ICD9: 585.6, V45.11, ICD10: N18.6, Z99.[address] Martin. 4. Hypotension, unspecified hypotension type - ICD9: 458.9, ICD10: I95.9 Discussed medications for HTN, but based on cardiac history, would not change any at this time. Will have md do resident urgent care Remi Kennedy contact Dr. Martin' office to see if less fluid can be drawn off during dialysis. 5. Generalized weakness - ICD9: 780.79, ICD10: R53.1 Improving with PT. 6. Coronary artery disease, angina presence unspecified, unspecified vessel or lesion type, unspecified whether rincon or transplanted heart - ICD9: 414.00, ICD10: I25.10 Improving chest pain with higher dose of Imdur. Recommendations per Dr. Cardona. 7. Atrial fibrillation, unspecified type ([facility]) - ICD9: 427.31, ICD10: I48.91 Rate controlled. On Eliquis. Continue current regimen and follow up with cardiology. Jameson Kamara MD CNOV Observed: 06/07/2018 Status: COMPLETED Source: [place] 1:00 PM [facility] REPOSITORY Office Visit ([facility]) LUZ BACA ([id number]) 1940 F Date Time Provider Department 06/07/18 1:00 PM JAMESON KAMARA) NAVINPWS During your visit today, we recorded the following information about you: Temperature Pulse Respiration Blood pressure 97.3 degrees 63/minute 20/minute 108/58 Jameson Kamara MD 06/07/2018 6:15 PM Signed Chief Complaint Patient presents with: f/u hypotension , weakness HPI Luz Baca is a 77 year old female who presents here today for Above Complaints. Accompanied today by daughter. Complaining today of pain in her feet and lower legs for the last 3-4 days which started suddenly without erythema. Described as throbbing pain. Has history of diabetic neuropathy and is no longer taking gabapentin since she was in the [facility]. Previous dose was not helping with neuropathy. Has not tried lyrica. Patient has noted hypotension here and at home. Has been following up with Dr. Martin regarding CKD and is on HD MWF through central line/port. States that she does not feel lightheaded or dizzy after dialysis, but occasionally after standing feels off balance for a couple seconds. Denies falls or syncope. Has walker at home she uses for stability. COPD well controlled on current regimen and 3 L oxygen via [place]. Patient admits to weakness since discharge from hospital. Following up with PT 3 times per week which is helping slowly. Noted during discussion that patient's central line/port is not dressed today. States that she gets a reaction/rash from any kind of tape. Discussed importance of keeping area covered as this is high risk for infection. Reviewed recent labs with patient. Past medical history, appointments, medications, allergies reviewed. Previous Medical History PAST MEDICAL HISTORY Diagnosis Date - Arthritis - Atrial fibrillation (HCC) - CAD (coronary artery disease) stents x9, defibrillator, CABG. Seeing Dr. Cardona - Cardiac defibrillator in place - Cardiomegaly - Carotid artery disease (HCC) left - Chronic kidney disease (CKD) stage G3b/A2, moderately decreased glomerular filtration rate (GFR) between 30-44 mL/min/1.73 square meter and albuminuria creatinine ratio between 30-299 mg/g ([facility]) Dr. Martin - COPD (chronic obstructive pulmonary disease) ([facility]) Dr. Cruz - Depression - Diabetes ([facility]) - Diabetic neuropathy ([facility]) - Edema - GERD (gastroesophageal reflux disease) - Gout with hyperuricemia - HH (hiatus hernia) - HOCM (hypertrophic obstructive cardiomyopathy) ([facility]) S/P Septal Myectomy in 2003. Now with LVEF 50% and mod/severe pulm HTN. - HTN (hypertension) - Hyperlipidemia - Morbid obesity with BMI of 40.0-44.9, adult ([facility]) - Sleep apnea 2011 not on CPAP, unable to tolerate mask 02/2017 - SVT (supraventricular tachycardia) ([facility]) NSVT and questionable VT in 2003 post op Previous Surgical History PAST SURGICAL HISTORY Procedure Laterality Date - CHOLECYSTECTOMY HX - DIALYSIS ACCESS SYSTEM - HEART SURGERY HX 07/18/2004 Septal myectomy and CABG x2 (DEBORAH-LAD, SVG-PDA). - HYSTERECTOMY HX - IANDD PERIANAL ABSCESS - PACEMAKER with defib - PAST SURGICAL HISTORY OF left breast nodule removed - PAST SURGICAL HISTORY OF skin lesions removed Family History FAMILY HISTORY Problem Relation Age of Onset - Hypertension Mother living at age 93, HTN - Heart Failure Mother NE - Cancer Father age 71, lung cancer - Heart Attack Sister - COPD Brother - Heart Paternal Grandmother - Heart Paternal Grandfather - Heart Sister - Diabetes Sister - Heart Sister - Breast Cancer Sister - Diabetes Sister - Hypertension Brother - Diabetes Brother Patient Allergies ALLERGIES Allergen Reactions - Aspirin Other: See Comments Patient states that she bled out every orifice, sts not allowed to take it at all. Patient states she was bleeding out of nose and mouth after one dose. - Bactrim [Sulfametho* Other: See Comments My throat swells up. - Latex Rash, Itching Itching and welts. No wheezing or shortness of breath. - Penicillins Rash, Itching Tolerated ceftriaxone during 11/2017 admission and cefepime during 12/2017 admission - Tetracycline Rash, GI Upset Emesis and diarrhea. - Atorvastatin Rash - Codeine Other: See Comments Numbness - Dilaudid [Hydromorp* Mental Status Change - Meperidine - Pentazocine - Pioglitazone Unknown - Propoxyphene Current Medications Current Outpatient Prescriptions on File Prior to Visit: iv contrast (will be provided with radiology test) CTA ABD/PEL LE - No IV access, insert saline lock prior to the sedation, infusion, injection for imaging exam. Discontinue saline lock post exam. If Pt. has a central line or IVAD, may access for administration according to line specific nursing protocol. Once exam is complete flush line and de-access according to line specific nursing protocol in the CT contrast administration guidelines link. ELIQUIS 5 mg tab(s) TAKE ONE TABLET BY MOUTH TWICE DAILY metoclopramide HCl (REGLAN) 5 mg tablet Take 1 tablet by mouth three times daily. isosorbide mononitrate ER (IMDUR) 60 mg 24 hr tablet Take 1.5 tablets by mouth once daily. pantoprazole DR (PROTONIX) 40 mg tablet Take 1 tablet by mouth once daily. insulin aspart U-100 (NOVOLOG FLEXPEN U-100 INSULIN) 100 unit/mL inpn Using Sliding Scale: 150-209 1 unit, 210-269 2 units, 270-329 3 units, 330-389 4 units, 390-449 5 units simvastatin (ZOCOR) 20 mg tablet Take 2 tablets by mouth every morning. senna (SENNA) 8.6 mg tab Take 8.6 mg by mouth once daily. HYDROcodone-acetaminophen (NORCO) 5-325 mg per tablet Take 1 tablet by mouth every 8 hours as needed. traZODone (DESYREL) 50 mg tablet Take 50 mg by mouth daily at bedtime. traMADol (ULTRAM) 50 mg tablet Take 50 mg by mouth every 8 hours as needed. ondansetron (ZOFRAN) 4 mg tablet Take 4 mg by mouth every 8 hours as needed. ipratropium-albuterol (DUONEB) 0.5 mg-3 mg(2.5 mg base)/3 mL nebu Inhale 3 mL as instructed every 4 hours while awake. And prn for wheezing/shortness of breath. budesonide (PULMICORT) 0.5 mg/2 mL nebulizer solution Use 2 mL via nebulizer once daily. INHALE 2 ML BY NEBULIZER OVER 5-15 MINUTES EVERY 12 HOURS. amiodarone (PACERONE) 200 mg tablet Take 1 tablet by mouth once daily. carvedilol (COREG) 3.125 mg tablet Take 1 tablet by mouth twice daily with meals. insulin glargine (LANTUS SOLOSTAR U-100 INSULIN) 100 unit/mL (3 mL) inpn Inject 50 Units subcutaneously every morning. insulin glargine (LANTUS SOLOSTAR U-100 INSULIN) 100 unit/mL (3 mL) inpn Inject 36 Units subcutaneously daily at bedtime. bacitracin (ANTIBIOTIC, BACITRACIN ZINC,) ointment Apply 1 application to affected area twice daily. nystatin (NYSTOP) powder Apply 1 application to affected area three times daily. guaiFENesin-dextromethorphan (ROBITUSSIN DM) 100-10 mg/5 mL syrup Take 5-10 mL by mouth every 6 hours as needed for Cough. nitroglycerin sublingual (NITROQUICK) 0.4 mg SL tablet Dissolve 1 tablet under the tongue every 5 minutes as needed. OXYGEN, HOME THERAPY, Inhale 2.5 L/min as instructed continuous. 3 L/min when leaves home. No current facility-administered medications on file prior to visit. Social History Social History Marital status: Spouse name: Years of education: Number of children: Social History Main Topics Smoking status: Former Smoker Packs/day: 2.50 Years: 43.00 Types: Cigarettes Start date: 1961 Quit date: 07/07/2004 Smokeless tobacco: Never Used Alcohol use: No Drug use: No Other Topics Concern Caffeine Concern Yes Comment:coffee 1 cup daily Special Diet No Comment:Regular Exercise No Comment:no unable, due to SOB x several months. Social History Narrative Patient and daughter live together. Review of Symptoms REVIEW OF SYSTEMS GENERAL: No weight loss, malaise or fevers RESPIRATORY: Negative for cough, hemoptysis, wheezing, COPD, dyspnea or shortness of breath CARDIOVASCULAR: Negative for chest pain, leg swelling, hypertension, CHF or palpitations GI: Constipation SKIN: Negative for lesions, rash, and itching EXAM: BP 108/58 Pulse 63 Temp 36.3 ?C (97.3 ?F) (Temporal Artery) Resp 20 SpO2 95% General Appearance: Well appearing, alert, in no acute distress, well-hydrated, well nourished.. Skin: Skin color, texture, turgor normal, no suspicious rashes or lesions. Lungs: Lungs clear to auscultation. No wheezing, rhonchi, rales. Heart: RRR without murmur, gallop, or rubs. No ectopy. Abdomen: Normal abdominal exam, Abdomen soft, non-tender. Bowel sounds normal. No masses, organomegaly. Extremities: chronic skin changes 2/2 venous insufficiency. Health Maintenance List DTAP,TDAP,TD(1 - Tdap) due on 1960 COLORECTAL CANCER SCREENING,SEE MODIFIER due on 1991 BONE DENSITY due on 2006 ADULT PREVNAR-13 due on 2006 PNEUMOVAX AGE 65 AND OVER WITH 5YR LOOKBACK(1) due on 2006 INFLUENZA(1) due on 06/18/2018 STATIN MED ADHERENCE due on 06/18/2018 DIABETES MED ADHERENCE due on 06/18/2018 DAMION/ARB MED PRESCRIBED due on 06/23/2018 DILATED RETINAL EXAM due on 10/27/2018 HBA1C due on 11/25/2018 DIABETIC FOOT EXAM due on 01/31/2019 SERUM CREATININE due on 02/18/2019 HEMOGLOBIN/HEMATOCRIT due on 05/10/2019 ANNUAL PCP TEAM CHRONIC DISEASE VISIT due on 05/19/2019 URINE ALBUMIN:CREATININE RATIO due on 05/25/2019 LDL CHOLESTEROL due on 05/25/2019 BLOOD PRESSURE CONTROLLED due on 06/06/2019 Data reviewed Component Latest Ref Rng AND Units 05/03/2018 05/04/2018 05/10/2018 05/25/2018 WBC 3.70 - 11.00 k/uL 6.43 6.97 RBC 3.90 - 5.20 m/uL 4.06 3.81 (L) Hemoglobin 11.5 - 15.5 g/dL 12.3 11.5 Hematocrit 36.0 - 46.0 % 41.1 37.9 MCV 80.0 - 100.0 fL 101.2 (H) 99.5 MCH 26.0 - 34.0 pG 30.3 30.2 MCHC 30.5 - 36.0 g/dL 29.9 (L) 30.3 (L) RDW-CV 11.5 - 15.0 % 15.2 (H) 14.7 Platelet Count 150 - 400 k/uL 174 163 MPV 9.0 - 12.7 fL 10.4 10.2 Neut% % 62.1 59.7 Abs Neut (ANC) 1.45 - 7.50 k/uL 3.97 4.16 Lymph% % 22.7 26.3 Abs Lymph 1.00 - 4.00 k/uL 1.46 1.83 Stoddard% % 10.4 10.3 Abs Stoddard <0.87 k/uL 0.67 0.72 Eosin% % 3.9 3.0 Abs Eosin <0.46 k/uL 0.25 0.21 Baso% % 0.9 0.7 Abs Baso <0.11 k/uL 0.06 0.05 Nucleated Reds 0 /100 WBC 0.0 0.0 Absolute nRBC <0.01 k/uL <0.01 <0.01 Diff Type Auto Diff Auto Diff Cholesterol, Total <200 mg/dL 111 Triglyceride <150 mg/dL 91 HDL Cholesterol >39 mg/dL 38 (L) LDL Cholesterol <100 mg/dL 55 Non HDL Cholesterol <130 mg/dL 73 Fasting Time hrs 12 VLDL Cholesterol <30 mg/dL 18 TC:HDL Ratio <5.10 2.92 LDL:HDL Ratio <2.54 1.45 Shigella spp./Enteroinvasive E.coli DNA Not Detected Campylobacter jejuni/coli DNA Not Detected Shiga toxin-producing gene(s) Not Detected Salmonella spp. DNA Not Detected Creatinine, Ur Random (UCRR) 20 - 300 mg/dL 417.1 (H) Albumin, Urine Random 0.0 - 23.0 mg/L 42.3 (H) Albumin/Creat Ratio 0 - 30 mg/g 10 Specimen Request Specimen received in sterile container. Test Results Positive for lactoferrin, which may indicate presence of fecal white blood cells (A) Hemoglobin A1C 4.3 - 5.6 % 6.8 (H) Estimated Average Glucose mg/dL 148 C. difficile PCR Specimen rejected. Formed stool received, only non-formed stool is acceptable for . . . Occult Blood, Stool Negative Positive (A) ALT 7 - 38 U/L 13 TSH 0.400 - 5.500 uU/mL 2.110 ASSESSMENT/PLAN: 1. Diabetic polyneuropathy associated with type 2 diabetes mellitus (HCC) - ICD9: 250.60, 357.2, ICD10: E11.42 (primary diagnosis) Will start patient on low dose lyrica for patients on HD. Will confirm appropriate dose with nephrology and call with further recommendations. - PREGABALIN 25 MG CAPSULE 2. Chronic obstructive pulmonary disease, unspecified COPD type (HCC) - ICD9: 496, ICD10: J44.9 Controlled on current regimen. 3. ESRD (end stage renal disease) on dialysis ([facility]) - ICD9: 585.6, V45.11, ICD10: N18.6, Z99.[address] Martin. 4. Hypotension, unspecified hypotension type - ICD9: 458.9, ICD10: I95.9 Discussed medications for HTN, but based on cardiac history, would not change any at this time. Will have md do resident urgent care Remi Kennedy contact Dr. Martin' office to see if less fluid can be drawn off during dialysis. 5. Generalized weakness - ICD9: 780.79, ICD10: R53.1 Improving with PT. 6. Coronary artery disease, angina presence unspecified, unspecified vessel or lesion type, unspecified whether rincon or transplanted heart - ICD9: 414.00, ICD10: I25.10 Improving chest pain with higher dose of Imdur. Recommendations per Dr. Cardona. 7. Atrial fibrillation, unspecified type (HCC) - ICD9: 427.31, ICD10: I48.91 Rate controlled. On Eliquis. Continue current regimen and follow up with cardiology. Jameson Kamara MD Referring Provider: JAMESON KAMARA () [[id number]] Allergies As of Date: 06/07/2018 Noted Allergy Reaction ASPIRIN 01/20/2018 14 - Other: See Comments Comments: Patient states that she bled out every orifice, sts not allowed to take it at all. Patient states she was bleeding out of nose and mouth after one dose. BACTRIM (SULFAMETHOXAZOLE-TRIMETH*05/17/2017 14 - Other: See Comments Comments: My throat swells up. LATEX 05/17/2017 2 - Rash 9 - Itching Comments: Itching and welts. No wheezing or shortness of breath. PENICILLINS 07/14/2004 2 - Rash 9 - Itching Comments: Tolerated ceftriaxone during 11/2017 admission and cefepime during 12/2017 admission TETRACYCLINE 09/29/2010 2 - Rash 8 - GI Upset Comments: Emesis and diarrhea. ATORVASTATIN 05/17/2017 2 - Rash CODEINE 05/17/2017 14 - Other: See Comments Comments: Numbness DILAUDID (HYDROMORPHONE (BULK)) 05/17/2017 1 - Mental Status Change MEPERIDINE 07/14/2004 PENTAZOCINE 07/14/2004 PIOGLITAZONE 05/17/2017 16 - Unknown PROPOXYPHENE 07/14/2004 Date Reviewed: 06/07/2018 Reviewed by: Sean Han Ma - Fully Assessed Reason for Visit: f/u hypotension , weakness [Other] Primary Visit Diagnosis:Diabetic polyneuropathy associated with type 2 diabetes mellitus ([facility]) [E11.42] Other Visit Diagnoses:Chronic obstructive pulmonary disease, unspecified COPD type ([facility]) [J44.9] ESRD (end stage renal disease) on dialysis ([facility]) [N18.6, Z99.2] Hypotension, unspecified hypotension type [I95.9] Generalized weakness [R53.1] Coronary artery disease, angina presence unspecified, unspecified vessel or lesion type, unspecified whether rincon or transplanted heart [I25.10] Atrial fibrillation, unspecified type ([facility]) [I48.91] Order(s):pregabalin (LYRICA) 25 mg capsuleTake 1 tablet PO daily after dialysis MWFDisp: 15 capsuleRfl: 2 Prescriptions as of 06/07/2018 Sig: PREGABALIN 25 MG CAPSULE Take 1 tablet PO daily after * IV CONTRAST (RADIOLOGY PROCED* CTA ABD/PEL LE - No IV access* ELIQUIS 5 MG TABLET TAKE ONE TABLET BY MOUTH TWIC* METOCLOPRAMIDE 5 MG TABLET Take 1 tablet by mouth three * ISOSORBIDE MONONITRATE ER 60 * Take 1.5 tablets by mouth onc* PANTOPRAZOLE 40 MG TABLET,DEL* Take 1 tablet by mouth once d* INSULIN ASPART U-100 100 UNI* Using Sliding Scale: 150-209* SIMVASTATIN 20 MG TABLET Take 2 tablets by mouth every* SENNOSIDES 8.6 MG TABLET Take 8.6 mg by mouth once carlos* HYDROCODONE 5 MG-ACETAMINOPHE* Take 1 tablet by mouth every * TRAZODONE 50 MG TABLET Take 50 mg by mouth daily at * ONDANSETRON HCL 4 MG TABLET Take 4 mg by mouth every 8 ho* IPRATROPIUM-ALBUTEROL 0.5 MG-* Inhale 3 mL as instructed leanne* BUDESONIDE 0.5 MG/2 ML SUSPEN* Use 2 mL via nebulizer once d* AMIODARONE 200 MG TABLET Take 1 tablet by mouth once d* CARVEDILOL 3.125 MG TABLET Take 1 tablet by mouth twice * INSULIN GLARGINE (U-100) 100 * Inject 50 Units subcutaneousl* INSULIN GLARGINE (U-100) 100 * Inject 36 Units subcutaneousl* BACITRACIN ZINC 500 UNIT/GRAM* Apply 1 application to affect* NYSTATIN 100,000 UNIT/GRAM TO* Apply 1 application to affect* DEXTROMETHORPHAN-GUAIFENESIN * Take 5-10 mL by mouth every 6* NITROGLYCERIN 0.4 MG SUBLINGU* Dissolve 1 tablet under the t* OXYGEN (HOME THERAPY) Inhale 2.5 L/min as instructe* Problem List As Of Date 06/07/2018 Noted Resolved HOCM (hypertrophic obstructive cardiomyopathy) * 01/23/2018 Priority: I More... SVT (supraventricular tachycardia) (HCC) [I47.1] 01/21/2018 More... Carotid artery disease (HCC) [I77.9] 01/22/2018 CAD (coronary artery disease) [I25.10] Priority: E More... Hypertension [I10] Priority: L More... Hyperlipidemia [E78.5] Pneumonia [J18.9] 10/27/2017 More... COPD (chronic obstructive pulmonary disease) (H* Priority: F More... Sleep apnea [G47.30] Priority: I More... HH (hiatus hernia) [K44.9] 01/21/2018 GERD (gastroesophageal reflux disease) [K21.9] Priority: K More... More... Arthritis [M19.90] Numbness and tingling of right leg [R20.0, R20.* 01/21/2018 Depression [F32.9] Atrial fibrillation (HCC) [I48.91] INVALID FOR* Priority: C More... Uncontrolled type 2 diabetes mellitus with stag*INVALID FOR* Priority: H More... More... More... Heart failure, systolic, acute (HCC) [I50.21] INVALID FOR*01/21/2018 More... Obesity [E66.09] INVALID FOR* Priority: M More... Gout [M10.9] Pacemaker [Z95.0] Priority: D More... Chronic combined systolic and diastolic CHF (co*INVALID FOR* Priority: B More... Elevated troponin [R74.8] INVALID FOR*01/22/2018 Priority: G More... Pulmonary hypertension (HCC) [I27.20] INVALID FOR* Oral thrush [B37.0] INVALID FOR*01/21/2018 Hyponatremia [E87.1] INVALID FOR* Priority: J More... Hyperkalemia [E87.5] INVALID FOR*01/22/2018 Priority: J Chest pain in adult [R07.9] INVALID FOR*02/12/2018 Priority: A More... Acute renal failure superimposed on stage 3 chr*INVALID FOR* Priority: A More... Obesity, Class II, BMI 35-39.9 [E66.9] INVALID FOR* Prescriptions ordered this encounter Disp Refills Start End PREGABALIN 50 MG CAPSULE 60 c* 2 06/07/2018 06/07/2018 Class: Print RX Route: ORAL Sig: Take 1 capsule by mouth twice daily for 30 days. PREGABALIN 25 MG CAPSULE 15 c* 2 06/07/2018 09/07/2018 Class: Print RX Sig: Take 1 tablet PO daily after dialysis MWF Medications Discontinued During This Encounter traMADol (ULTRAM) 50 mg tablet 06/07/2018 Class: Historical Med Route: ORAL Sig: Take 50 mg by mouth every 8 hours as needed. Disc: Reason for discontinue is not on file. pregabalin (LYRICA) 50 mg capsule 60 c* 2 06/07/2018 06/07/2018 Class: Print RX Route: ORAL Sig: Take 1 capsule by mouth twice daily for 30 days. Disc: Reason for discontinue is not on file. Disposition: Return in about 4 weeks (around 07/05/2018). Follow-up and Disposition History Recorded Encounter Status:Closed by JAMESON KAMARA MD on 06/07/18 ELÍASTOUTRRADHA Observed: 06/07/2018 Status: COMPLETED Source: [place] 12:00 AM [facility] REPOSITORY Patient Outreach (FAMPWS) LUZ BACA ([id number]) 1940 F Date Time Provider Department 06/07/18 REMI KENNEDY) ANTOINE During your visit today, we recorded the following information about you: Remi Kennedy RN 06/07/2018 4:12 PM Addendum PRIMARY CARE COORDINATION IN OFFICE VISIT WITH PCP Patient has been identified by name and date of . PCP Assessment/Plan: Reviewed PCP plan with patient using Teach Back Reviewed home BP readings and pt symptomatic with some lightheadedness with standing from sitting position PCP discussed pt changing position slowly PCC will call Dr. Martin' office regarding taking less fluid off pt during dialysis Discussed pt's bilateral LE pain from knees down to feet. States past several days pain has been constant and throbbing, making it very difficult to sleep. Pt will start Lyrica three days/week after dialysis PCC will call Dr. Martin' office regarding approval of dosing of Lyrica, whether only 3 days/week or daily PCC Plan of Care: Patient concerns: Throbbing bilateral LE pain PCC Interventions: TC to [facility], left message to please call PCC back regarding 2 questions/concerns with patient. Remi Kennedy RN June 07, 2018 4:12 PM Next Office Visit: 07/05/2018 Plan For Next Call: One week Remi Kennedy RN June 07, 2018 Remi Kennedy RN 06/08/2018 2:57 PM Signed TRANSITION CARE MANAGEMENT (TCM) FOLLOW-UP NOTE Provider Action/FYI Order for Lyrica pended per Dr. Swartz's MISSILEMAN recommendation Patient identified by name and date of : YES Spoke to nurse from [facility] Summary: TC from nurse, Anahi, states she spoke to Russell Snider NP for Dr. Swartz. Russell states it is safe to give patient Lyrica 25 mg daily with an additional 25 mg after dialysis on Wednesday, Wednesday and Wednesday. Remi Kennedy RN Discussed patient's low BP at home, by home health nurse and in office. Pt reports lightheadedness with standing. PCP is asking if dialysis could take less fluid off to prevent symptoms. Nurse states pt was having SOB so she was taking more fluid off to prevent CHF. Informed pt's breathing was great yesterday and pt was the best she's been in a while in regards to her CHF. Nurse states that's because she actually took extra fluid off on Wednesday due to her SOB. Asked about dosing of Lyrica, informed PCP read about renal dosing and it mentioned supplementing with Lyrica so he was originally going to order it daily but after reading the supplemental dose he wrote for 25 mg M-W-F after dialysis. He wasn't sure it he could write for daily. States she will check with Dr. Swartz's MISSILEMAN and call PCC back. Watermelon Inspector plan for next outreach: Will follow up next week Remi Kennedy RN June 08, 2018 Jameson Kamara MD 06/08/2018 4:58 PM Signed Order placed. Thanks! Remi Kennedy RN 06/08/2018 4:58 PM Signed PRIMARY CARE COORDINATION QUICK NOTE Provider Action/FYI TC to patient to inform of increased dose Patient identified by name and date . TC to patient instructed PCP talked to kidney doctor and pt is to increase her Lyrica, for pain in legs. Pt to take Lyrica 25 mg 1 tablet every morning and one M W F pt is to take a second pill after dialysis. Informed a new prescription has been called into pharmacy. Pt verbalized understanding. Sean Han Ma 06/08/2018 5:23 PM Signed Order faxed to [facility] pharmacy Allergies As of Date: 06/07/2018 Noted Allergy Reaction ASPIRIN 01/20/2018 14 - Other: See Comments Comments: Patient states that she bled out every orifice, sts not allowed to take it at all. Patient states she was bleeding out of nose and mouth after one dose. BACTRIM (SULFAMETHOXAZOLE-TRIMETH*05/17/2017 14 - Other: See Comments Comments: My throat swells up. LATEX 05/17/2017 2 - Rash 9 - Itching Comments: Itching and welts. No wheezing or shortness of breath. PENICILLINS 07/14/2004 2 - Rash 9 - Itching Comments: Tolerated ceftriaxone during 11/2017 admission and cefepime during 12/2017 admission TETRACYCLINE 09/29/2010 2 - Rash 8 - GI Upset Comments: Emesis and diarrhea. 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] Visit Diagnosis:Diabetic polyneuropathy associated with type 2 diabetes mellitus (HCC) [E11.42] Order(s):pregabalin (LYRICA) 25 mg capsuleTake 1 tablet PO daily with an additional 1 tablet PO after dialysis MWFDisp: 45 capsuleRfl: 2 Prescriptions as of 06/07/2018 Sig: PREGABALIN 25 MG CAPSULE Take 1 tablet PO daily with a* IV CONTRAST (RADIOLOGY PROCED* CTA ABD/PEL LE - No IV access* ELIQUIS 5 MG TABLET TAKE ONE TABLET BY MOUTH TWIC* METOCLOPRAMIDE 5 MG TABLET Take 1 tablet by mouth three * ISOSORBIDE MONONITRATE ER 60 * Take 1.5 tablets by mouth onc* PANTOPRAZOLE 40 MG TABLET,DEL* Take 1 tablet by mouth once d* INSULIN ASPART U-100 100 UNI* Using Sliding Scale: 150-209* SIMVASTATIN 20 MG TABLET Take 2 tablets by mouth every* SENNOSIDES 8.6 MG TABLET Take 8.6 mg by mouth once carlos* HYDROCODONE 5 MG-ACETAMINOPHE* Take 1 tablet by mouth every * TRAZODONE 50 MG TABLET Take 50 mg by mouth daily at * ONDANSETRON HCL 4 MG TABLET Take 4 mg by mouth every 8 ho* IPRATROPIUM-ALBUTEROL 0.5 MG-* Inhale 3 mL as instructed laenne* BUDESONIDE 0.5 MG/2 ML SUSPEN* Use 2 mL via nebulizer once d* AMIODARONE 200 MG TABLET Take 1 tablet by mouth once d* CARVEDILOL 3.125 MG TABLET Take 1 tablet by mouth twice * INSULIN GLARGINE (U-100) 100 * Inject 50 Units subcutaneousl* INSULIN GLARGINE (U-100) 100 * Inject 36 Units subcutaneousl* BACITRACIN ZINC 500 UNIT/GRAM* Apply 1 application to affect* NYSTATIN 100,000 UNIT/GRAM TO* Apply 1 application to affect* DEXTROMETHORPHAN-GUAIFENESIN * Take 5-10 mL by mouth every 6* NITROGLYCERIN 0.4 MG SUBLINGU* Dissolve 1 tablet under the t* OXYGEN (HOME THERAPY) Inhale 2.5 L/min as instructe* Problem List As Of Date 06/07/2018 Noted Resolved HOCM (hypertrophic obstructive cardiomyopathy) * 01/23/2018 Priority: I More... SVT (supraventricular tachycardia) (HCC) [I47.1] 01/21/2018 More... Carotid artery disease (HCC) [I77.9] 01/22/2018 CAD (coronary artery disease) [I25.10] Priority: E More... Hypertension [I10] Priority: L More... Hyperlipidemia [E78.5] Pneumonia [J18.9] 10/27/2017 More... COPD (chronic obstructive pulmonary disease) (H* Priority: F More... Sleep apnea [G47.30] Priority: I More... HH (hiatus hernia) [K44.9] 01/21/2018 GERD (gastroesophageal reflux disease) [K21.9] Priority: K More... More... Arthritis [M19.90] Numbness and tingling of right leg [R20.0, R20.* 01/21/2018 Depression [F32.9] Atrial fibrillation (HCC) [I48.91] INVALID FOR* Priority: C More... Uncontrolled type 2 diabetes mellitus with stag*INVALID FOR* Priority: H More... More... More... Heart failure, systolic, acute (HCC) [I50.21] INVALID FOR*01/21/2018 More... Obesity [E66.09] INVALID FOR* Priority: M More... Gout [M10.9] Pacemaker [Z95.0] Priority: D More... Chronic combined systolic and diastolic CHF (co*INVALID FOR* Priority: B More... Elevated troponin [R74.8] INVALID FOR*01/22/2018 Priority: G More... Pulmonary hypertension (HCC) [I27.20] INVALID FOR* Oral thrush [B37.0] INVALID FOR*01/21/2018 Hyponatremia [E87.1] INVALID FOR* Priority: J More... Hyperkalemia [E87.5] INVALID FOR*01/22/2018 Priority: J Chest pain in adult [R07.9] INVALID FOR*02/12/2018 Priority: A More... Acute renal failure superimposed on stage 3 chr*INVALID FOR* Priority: A More... Obesity, Class II, BMI 35-39.9 [E66.9] INVALID FOR* Prescriptions ordered this encounter Disp Refills Start End PREGABALIN 25 MG CAPSULE 45 c* 2 06/08/2018 09/08/2018 Class: Print RX Sig: Take 1 tablet PO daily with an additional 1 tablet PO after dialysis MWF Medications Discontinued During This Encounter pregabalin (LYRICA) 25 mg capsule 15 c* 2 06/07/2018 06/08/2018 Class: Print RX Sig: Take 1 tablet PO daily after dialysis MWF Disc: Reason for discontinue is not on file. Encounter Status:Closed by REMI KENNEDY on 06/08/18 PROGRESS Observed: 06/06/2018 Status: COMPLETED Source: [place] 9:55 AM [facility] REPOSITORY HNO ID: [id number] Author: Michael Hogan Service: (none) Author Type: Physician Type: Progress Notes Filed: 06/06/2018 9:55 AM Note Text: This office note has been dictated. Michael Hogan DO CNOV Observed: 06/06/2018 Status: COMPLETED Source: [place] 8:45 AM [facility] REPOSITORY Office Visit (VASSWS) LUZ BACA ([id number]) 1940 F Date Time Provider Department 06/06/18 8:45 AM MICHAEL HOGAN During your visit today, we recorded the following information about you: Pulse Blood pressure 55/minute 104/50 Michael Hogan DO 06/06/2018 9:55 AM Signed This office note has been dictated. Michael Hogan DO Referring Provider: JAMESON KAMARA) [[id number]] Allergies As of Date: 06/06/2018 Noted Allergy Reaction ASPIRIN 01/20/2018 14 - Other: See Comments Comments: Patient states that she bled out every orifice, sts not allowed to take it at all. Patient states she was bleeding out of nose and mouth after one dose. BACTRIM (SULFAMETHOXAZOLE-TRIMETH*05/17/2017 14 - Other: See Comments Comments: My throat swells up. LATEX 05/17/2017 2 - Rash 9 - Itching Comments: Itching and welts. No wheezing or shortness of breath. PENICILLINS 07/14/2004 2 - Rash 9 - Itching Comments: Tolerated ceftriaxone during 11/2017 admission and cefepime during 12/2017 admission TETRACYCLINE 09/29/2010 2 - Rash 8 - GI Upset Comments: Emesis and diarrhea. ATORVASTATIN 05/17/2017 2 - Rash CODEINE 05/17/2017 14 - Other: See Comments Comments: Numbness DILAUDID (HYDROMORPHONE (BULK)) 05/17/2017 1 - Mental Status Change MEPERIDINE 07/14/2004 PENTAZOCINE 07/14/2004 PIOGLITAZONE 05/17/2017 16 - Unknown PROPOXYPHENE 07/14/2004 Date Reviewed: 06/06/2018 Reviewed by: Thiago Ruano RN - Fully Assessed Reason for Visit: Established Patient [175] Primary Visit Diagnosis:Screening for nephropathy [Z13.89] Other Visit Diagnoses:Diminished pulses in lower extremity [R09.89] Peripheral arterial disease (HCC) [I73.9] Order(s):CREATININE BLD [SQCRET] Order #: [id number] FUTURE CTA ABD/PEL LOWER EXTREM W IVCON [[id number]] Order #: [id number] FUTURE iv contrast (will be provided with radiology test)CTA ABD/PEL LE - No IV access, insert saline lock prior to the sedation, infusion, injection for imaging exam. Discontinue saline lock post exam. If Pt. has a central line or IVAD, may access for administration according to line specific nursing protocol. Once exam is complete flush line and de-access according to line specific nursing protocol in the CT contrast administration guidelines link.Disp: 1 EachRfl: 0 Prescriptions as of 06/06/2018 Sig: IV CONTRAST (RADIOLOGY PROCED* CTA ABD/PEL LE - No IV access* ELIQUIS 5 MG TABLET TAKE ONE TABLET BY MOUTH TWIC* METOCLOPRAMIDE 5 MG TABLET Take 1 tablet by mouth three * ISOSORBIDE MONONITRATE ER 60 * Take 1.5 tablets by mouth onc* PANTOPRAZOLE 40 MG TABLET,DEL* Take 1 tablet by mouth once d* INSULIN ASPART U-100 100 UNI* Using Sliding Scale: 150-209* SIMVASTATIN 20 MG TABLET Take 2 tablets by mouth every* SENNOSIDES 8.6 MG TABLET Take 8.6 mg by mouth once carlos* HYDROCODONE 5 MG-ACETAMINOPHE* Take 1 tablet by mouth every * TRAZODONE 50 MG TABLET Take 50 mg by mouth daily at * TRAMADOL 50 MG TABLET Take 50 mg by mouth every 8 h* ONDANSETRON HCL 4 MG TABLET Take 4 mg by mouth every 8 ho* IPRATROPIUM-ALBUTEROL 0.5 MG-* Inhale 3 mL as instructed leanne* BUDESONIDE 0.5 MG/2 ML SUSPEN* Use 2 mL via nebulizer once d* AMIODARONE 200 MG TABLET Take 1 tablet by mouth once d* CARVEDILOL 3.125 MG TABLET Take 1 tablet by mouth twice * INSULIN GLARGINE (U-100) 100 * Inject 50 Units subcutaneousl* INSULIN GLARGINE (U-100) 100 * Inject 36 Units subcutaneousl* BACITRACIN ZINC 500 UNIT/GRAM* Apply 1 application to affect* NYSTATIN 100,000 UNIT/GRAM TO* Apply 1 application to affect* DEXTROMETHORPHAN-GUAIFENESIN * Take 5-10 mL by mouth every 6* NITROGLYCERIN 0.4 MG SUBLINGU* Dissolve 1 tablet under the t* OXYGEN (HOME THERAPY) Inhale 2.5 L/min as instructe* Problem List As Of Date 06/06/2018 Noted Resolved HOCM (hypertrophic obstructive cardiomyopathy) * 01/23/2018 Priority: I More... SVT (supraventricular tachycardia) (HCC) [I47.1] 01/21/2018 More... Carotid artery disease (HCC) [I77.9] 01/22/2018 CAD (coronary artery disease) [I25.10] Priority: E More... Hypertension [I10] Priority: L More... Hyperlipidemia [E78.5] Pneumonia [J18.9] 10/27/2017 More... COPD (chronic obstructive pulmonary disease) (H* Priority: F More... Sleep apnea [G47.30] Priority: I More... HH (hiatus hernia) [K44.9] 01/21/2018 GERD (gastroesophageal reflux disease) [K21.9] Priority: K More... More... Arthritis [M19.90] Numbness and tingling of right leg [R20.0, R20.* 01/21/2018 Depression [F32.9] Atrial fibrillation (HCC) [I48.91] INVALID FOR* Priority: C More... Uncontrolled type 2 diabetes mellitus with stag*INVALID FOR* Priority: H More... More... More... Heart failure, systolic, acute (HCC) [I50.21] INVALID FOR*01/21/2018 More... Obesity [E66.09] INVALID FOR* Priority: M More... Gout [M10.9] Pacemaker [Z95.0] Priority: D More... Chronic combined systolic and diastolic CHF (co*INVALID FOR* Priority: B More... Elevated troponin [R74.8] INVALID FOR*01/22/2018 Priority: G More... Pulmonary hypertension (HCC) [I27.20] INVALID FOR* Oral thrush [B37.0] INVALID FOR*01/21/2018 Hyponatremia [E87.1] INVALID FOR* Priority: J More... Hyperkalemia [E87.5] INVALID FOR*01/22/2018 Priority: J Chest pain in adult [R07.9] INVALID FOR*02/12/2018 Priority: A More... Acute renal failure superimposed on stage 3 chr*INVALID FOR* Priority: A More... Obesity, Class II, BMI 35-39.9 [E66.9] INVALID FOR* Prescriptions ordered this encounter Disp Refills Start End IV CONTRAST (RADIOLOGY PROCEDURE) 1 Ea* 0 06/06/2018 06/07/2018 Class: In Office Sig: CTA ABD/PEL LE - No IV access, insert saline lock prior to the sedation, infusion, injection for imaging exam. Discontinue saline lock post exam. If Pt. has a central line or IVAD, may access for administration according to line specific nursing protocol. Once exam is complete flush line and de-access according to line specific nursing protocol in the CT contrast administration guidelines link. Encounter Status:Closed by MICHAEL HOGAN DO on 06/06/18 PROGRESS Observed: 06/06/2018 Status: COMPLETED Source: [place] 12:00 AM [facility] REPOSITORY O ID: [id number] Author: Michael Hogan Service: Vascular Surgery Author Type: Physician Type: Progress Notes Filed: 06/12/2018 12:33 PM Note Text: NAME: [facility] NO: [id number] DATE OF SERVICE: 06/06/2018 Subjective: Ms. Baca is here to follow up on PVD and possible fistula creation. Her appointment in April was rescheduled as she was admitted to [facility] for possible NE. She has had no further chest pain symptoms since that time. She is on home O2 secondary to COPD. She describes bilateral burning constant pain, especially at dialysis for which she has to pat her legs. Objective: She is in no distress. She has bilateral lower extremity edema. No ulcerations or tissue loss. No palpable pulses. Her JAMIR on the right is 0.89, on the left is 0.67, which has been stable. She had arterial duplexes that demonstrate right-sided proximal SFA 50-99% stenosis, popliteal 50-99%. On the left, middistal SFA stenosis as well as some bilateral tibial disease. She also was started on dialysis since our last visit. She has no largely visible veins. Palpable radial pulse on the left. Her vein mapping on the left demonstrates a possible basilic vein. Assessment/Plan: 1. Endstage renal disease, on dialysis. 2. Peripheral arterial disease. We will get a CTA with runoff as she has been having significant pain at rest. Also, reviewed vein mapping, discussed fistula creation and she is agreeable. We will have the office arrange for a left arm fistula creation with regional MAC, if tolerated. Reviewed the risks, benefits and alternatives with the patient and she is agreeable to proceed. We will have the office arrange and schedule. Michael Hogan D.O. KB/[id number] Audio #: [id number] Date Dictated: 06/06/2018 08:48:20 Date Typed: 06/10/2018 09:13:46 Date Revised: OBSOLETE Observed: 06/02/2018 Status: COMPLETED Source: [place] 8:00 AM [facility] REPOSITORY Procedure (AKEPD) LUZ BACA ([id number]) 1940 F Date Time Provider Department 06/02/18 8:00 AM [facility] AKEPD During your visit today, we recorded the following information about you: Referring Provider: ENE HUBBARD [[id number]] Allergies As of Date: 06/02/2018 Noted Allergy Reaction ASPIRIN 01/20/2018 14 - Other: See Comments Comments: Patient states that she bled out every orifice, sts not allowed to take it at all. Patient states she was bleeding out of nose and mouth after one dose. BACTRIM (SULFAMETHOXAZOLE-TRIMETH*05/17/2017 14 - Other: See Comments Comments: My throat swells up. LATEX 05/17/2017 2 - Rash 9 - Itching Comments: Itching and welts. No wheezing or shortness of breath. PENICILLINS 07/14/2004 2 - Rash 9 - Itching Comments: Tolerated ceftriaxone during 11/2017 admission and cefepime during 12/2017 admission TETRACYCLINE 09/29/2010 2 - Rash 8 - GI Upset Comments: Emesis and diarrhea. ATORVASTATIN 05/17/2017 2 - Rash CODEINE 05/17/2017 14 - Other: See Comments Comments: Numbness DILAUDID (HYDROMORPHONE (BULK)) 05/17/2017 1 - Mental Status Change MEPERIDINE 07/14/2004 PENTAZOCINE 07/14/2004 PIOGLITAZONE 05/17/2017 16 - Unknown PROPOXYPHENE 07/14/2004 Date Reviewed: 06/01/2018 Reviewed by: Dina Claudio - Fully Assessed Reason for Visit: Remote ICD Follow Up [1924] Visit Diagnosis:Chronic combined systolic and diastolic CHF (congestive heart failure) ([facility]) [I50.42] Prescriptions as of 06/02/2018 Sig: ELIQUIS 5 MG TABLET TAKE ONE TABLET BY MOUTH TWIC* METOCLOPRAMIDE 5 MG TABLET Take 1 tablet by mouth three * ISOSORBIDE MONONITRATE ER 60 * Take 1.5 tablets by mouth onc* PANTOPRAZOLE 40 MG TABLET,DEL* Take 1 tablet by mouth once d* INSULIN ASPART U-100 100 UNI* Using Sliding Scale: 150-209* SIMVASTATIN 20 MG TABLET Take 2 tablets by mouth every* SENNOSIDES 8.6 MG TABLET Take 8.6 mg by mouth once carlos* HYDROCODONE 5 MG-ACETAMINOPHE* Take 1 tablet by mouth every * TRAZODONE 50 MG TABLET Take 50 mg by mouth daily at * TRAMADOL 50 MG TABLET Take 50 mg by mouth every 8 h* ONDANSETRON HCL 4 MG TABLET Take 4 mg by mouth every 8 ho* IPRATROPIUM-ALBUTEROL 0.5 MG-* Inhale 3 mL as instructed leanne* BUDESONIDE 0.5 MG/2 ML SUSPEN* Use 2 mL via nebulizer once d* AMIODARONE 200 MG TABLET Take 1 tablet by mouth once d* CARVEDILOL 3.125 MG TABLET Take 1 tablet by mouth twice * INSULIN GLARGINE (U-100) 100 * Inject 50 Units subcutaneousl* INSULIN GLARGINE (U-100) 100 * Inject 36 Units subcutaneousl* BACITRACIN ZINC 500 UNIT/GRAM* Apply 1 application to affect* NYSTATIN 100,000 UNIT/GRAM TO* Apply 1 application to affect* DEXTROMETHORPHAN-GUAIFENESIN * Take 5-10 mL by mouth every 6* NITROGLYCERIN 0.4 MG SUBLINGU* Dissolve 1 tablet under the t* OXYGEN (HOME THERAPY) Inhale 2.5 L/min as instructe* Problem List As Of Date 06/02/2018 Noted Resolved HOCM (hypertrophic obstructive cardiomyopathy) * 01/23/2018 Priority: I More... SVT (supraventricular tachycardia) (HCC) [I47.1] 01/21/2018 More... Carotid artery disease (HCC) [I77.9] 01/22/2018 CAD (coronary artery disease) [I25.10] Priority: E More... Hypertension [I10] Priority: L More... Hyperlipidemia [E78.5] Pneumonia [J18.9] 10/27/2017 More... COPD (chronic obstructive pulmonary disease) (H* Priority: F More... Sleep apnea [G47.30] Priority: I More... HH (hiatus hernia) [K44.9] 01/21/2018 GERD (gastroesophageal reflux disease) [K21.9] Priority: K More... More... Arthritis [M19.90] Numbness and tingling of right leg [R20.0, R20.* 01/21/2018 Depression [F32.9] Atrial fibrillation (HCC) [I48.91] INVALID FOR* Priority: C More... Uncontrolled type 2 diabetes mellitus with stag*INVALID FOR* Priority: H More... More... More... Heart failure, systolic, acute (HCC) [I50.21] INVALID FOR*01/21/2018 More... Obesity [E66.09] INVALID FOR* Priority: M More... Gout [M10.9] Pacemaker [Z95.0] Priority: D More... Chronic combined systolic and diastolic CHF (co*INVALID FOR* Priority: B More... Elevated troponin [R74.8] INVALID FOR*01/22/2018 Priority: G More... Pulmonary hypertension (HCC) [I27.20] INVALID FOR* Oral thrush [B37.0] INVALID FOR*01/21/2018 Hyponatremia [E87.1] INVALID FOR* Priority: J More... Hyperkalemia [E87.5] INVALID FOR*01/22/2018 Priority: J Chest pain in adult [R07.9] INVALID FOR*02/12/2018 Priority: A More... Acute renal failure superimposed on stage 3 chr*INVALID FOR* Priority: A More... Obesity, Class II, BMI 35-39.9 [E66.9] INVALID FOR* Encounter Status:Closed by EUDARDO HERNANDEZ on 06/02/18 PROGRESS Observed: 06/01/2018 Status: COMPLETED Source: [place] 3:48 PM [facility] REPOSITORY [facility] ID: [id number] Author: Dina Claudio Service: (none) Author Type: Physician Type: Progress Notes Filed: 06/01/2018 4:51 PM Note Text: HISTORY AND PHYSICAL Luz Baca 1940 REFERRING PHYSICIAN: Adriel Pringle (Elías)Ebonie* CHIEF COMPLAINT: New Patient (positive occult stool) HPI: The patient is a 77 year old female referred for endoscopy. Luz notes , denies abdominal pain area did the patient notes episodic diarrhea and constipation. More recently, the patient has had more episodes of diarrhea. While denying true pain. She does note some abdominal cramping and periumbilical area. The patient denies nausea or vomiting. She denies hematemesis. She denies melena or hematochezia. The patient had a recent stool for occult blood which was positive. Patient has a recent history of dysphagia. She underwent upper endoscopy with esophageal dilatation on's December 31, 2017. This was performed in [place]. The patient was found to have a 3 cm hiatal hernia irregular GE junction and a shop. He is wearing that was dilated. Pathology returned as chronic active gastritis with H. pylori-like organisms. Negative for dysplasia on the stomach, biopsy, gastric biopsy demonstrated reactive gastric mucosa, negative for metaplasia or dysplasia. Esophageal biopsy returned as active inflammation. H. pylori antibody was positive. The patient was treated with eradication for H. pylori. She's been maintained on proton pump inhibitors. The patient had colonoscopy performed she recalls 5 years previously and [place]. She is uncertain what the findings were or what the recommended follow-up were. Has extensive past medical history - most recently, the patient had a non-ST segment myocardial infarction on May 13. She underwent cardiac catheterization which demonstrated an occluded venous graft, a patent VU graft and a 60% stenosis of the mid LAD. The patient also has a history of supraventricular tachycardia, sleep apnea, morbid obesity, hypertrophic obstructive cardiomyopathy, diabetic neuropathy, diabetes, COPD, chronic renal failure on dialysis with failed dialysis access. Carotid artery disease pacer defibrillator in place. She is referred for endoscopy due to blood in stool The patient is being seen by me today at the request of Dr. Jameson Kamara MD for my opinion and advice regarding need for endoscopy given chronic and severe medical comorbidities. PAST MEDICAL HISTORY Diagnosis Date - Arthritis - Atrial fibrillation (HCC) - CAD (coronary artery disease) stents x9, defibrillator, CABG. Seeing Dr. Cardona - Cardiac defibrillator in place - Cardiomegaly - Carotid artery disease (HCC) left - Chronic kidney disease (CKD) stage G3b/A2, moderately decreased glomerular filtration rate (GFR) between 30-44 mL/min/1.73 square meter and albuminuria creatinine ratio between 30-299 mg/g ([facility]) Dr. Martin - COPD (chronic obstructive pulmonary disease) ([facility]) Dr. Cruz - Depression - Diabetes ([facility]) - Diabetic neuropathy ([facility]) - Edema - GERD (gastroesophageal reflux disease) - Gout with hyperuricemia - HH (hiatus hernia) - HOCM (hypertrophic obstructive cardiomyopathy) ([facility]) S/P Septal Myectomy in 2003. Now with LVEF 50% and mod/severe pulm HTN. - HTN (hypertension) - Hyperlipidemia - Morbid obesity with BMI of 40.0-44.9, adult ([facility]) - Sleep apnea 2011 not on CPAP, unable to tolerate mask 02/2017 - SVT (supraventricular tachycardia) ([facility]) NSVT and questionable VT in 2003 post op PAST SURGICAL HISTORY Procedure Laterality Date - CHOLECYSTECTOMY HX - DIALYSIS ACCESS SYSTEM - HEART SURGERY HX 07/18/2004 Septal myectomy and CABG x2 (DEBORAH-LAD, SVG-PDA). - HYSTERECTOMY HX - IANDD PERIANAL ABSCESS - PACEMAKER with defib - PAST SURGICAL HISTORY OF left breast nodule removed - PAST SURGICAL HISTORY OF skin lesions removed Current Outpatient Prescriptions: ELIQUIS 5 mg tab(s) TAKE ONE TABLET BY MOUTH TWICE DAILY metoclopramide HCl (REGLAN) 5 mg tablet Take 1 tablet by mouth three times daily. isosorbide mononitrate ER (IMDUR) 60 mg 24 hr tablet Take 1.5 tablets by mouth once daily. pantoprazole DR (PROTONIX) 40 mg tablet Take 1 tablet by mouth once daily. insulin aspart U-100 (NOVOLOG FLEXPEN U-100 INSULIN) 100 unit/mL inpn Using Sliding Scale: 150-209 1 unit, 210-269 2 units, 270- 329 3 units, 330-389 4 units, 390-449 5 units simvastatin (ZOCOR) 20 mg tablet Take 2 tablets by mouth every morning. senna (SENNA) 8.6 mg tab Take 8.6 mg by mouth once daily. HYDROcodone-acetaminophen (NORCO) 5-325 mg per tablet Take 1 tablet by mouth every 8 hours as needed. traZODone (DESYREL) 50 mg tablet Take 50 mg by mouth daily at bedtime. traMADol (ULTRAM) 50 mg tablet Take 50 mg by mouth every 8 hours as needed. ondansetron (ZOFRAN) 4 mg tablet Take 4 mg by mouth every 8 hours as needed. ipratropium-albuterol (DUONEB) 0.5 mg-3 mg(2.5 mg base)/3 mL nebu Inhale 3 mL as instructed every 4 hours while awake. And prn for wheezing/shortness of breath. budesonide (PULMICORT) 0.5 mg/2 mL nebulizer solution Use 2 mL via nebulizer once daily. INHALE 2 ML BY NEBULIZER OVER 5-15 MINUTES EVERY 12 HOURS. amiodarone (PACERONE) 200 mg tablet Take 1 tablet by mouth once daily. carvedilol (COREG) 3.125 mg tablet Take 1 tablet by mouth twice daily with meals. insulin glargine (LANTUS SOLOSTAR U-100 INSULIN) 100 unit/mL (3 mL) inpn Inject 50 Units subcutaneously every morning. insulin glargine (LANTUS SOLOSTAR U-100 INSULIN) 100 unit/mL (3 mL) inpn Inject 36 Units subcutaneously daily at bedtime. bacitracin (ANTIBIOTIC, BACITRACIN ZINC,) ointment Apply 1 application to affected area twice daily. nystatin (NYSTOP) powder Apply 1 application to affected area three times daily. guaiFENesin-dextromethorphan (ROBITUSSIN DM) 100-10 mg/5 mL syrup Take 5-10 mL by mouth every 6 hours as needed for Cough. nitroglycerin sublingual (NITROQUICK) 0.4 mg SL tablet Dissolve 1 tablet under the tongue every 5 minutes as needed. OXYGEN, HOME THERAPY, Inhale 2.5 L/min as instructed continuous. 3 L/min when leaves home. No current facility-administered medications for this visit. ALLERGIES: Aspirin; Bactrim [Sulfamethoxazole-Trimethoprim]; Latex; Penicillins; Tetracycline; Atorvastatin; Codeine; Dilaudid [Hydromorphone (Bulk)]; Meperidine; Pentazocine; Pioglitazone; Propoxyphene PERSONAL HISTORY: Social History Marital status: Spouse name: Years of education: Number of children: Social History Main Topics Smoking status: Former Smoker Packs/day: 2.50 Years: 43.00 Types: Cigarettes Start date: 1961 Quit date: 07/07/2004 Smokeless tobacco: Never Used Alcohol use: No Drug use: No Other Topics Concern Caffeine Concern Yes Comment:coffee 1 cup daily Special Diet No Comment:Regular Exercise No Comment:no unable, due to SOB x several months. Social History Narrative Patient and daughter live together. FAMILY HISTORY: FAMILY HISTORY Problem Relation Age of Onset - Hypertension Mother living at age 93, HTN - Heart Failure Mother [place] - Cancer Father age 71, lung cancer - Heart Attack Sister - COPD Brother - Heart Paternal Grandmother - Heart Paternal Grandfather - Heart Sister - Diabetes Sister - Heart Sister - Breast Cancer Sister - Diabetes Sister - Hypertension Brother - Diabetes Brother REVIEW OF SYMPTOMS: The review of systems data was entered by the nurse and reviewed by tx Nursing Notes: Meenakshi Lemos RN 05/31/2018 2:11 PM Signed REVIEW OF SYSTEMS: General: The patient NOTES fatigue, denies weight loss, NOTES weight gain, NOTES feeling hot, and denies feelings of cold. Eyes: The patient denies glaucoma, NOTES eye injury/surgery, wears glasses or contacts. Ear/Nose/Throat: The patient denies allergies, denies hayfever, denies ear infections, and NOTES bloody noses. Cardiovascular: The patient NOTES chest pain, NOTES heart disease, denies high blood pressure,NOTES cardiac stent, denies prior heart attack, NOTES irregular heart beat, NOTES high cholesterol, NOTES poor circulation, NOTES heart failure, other cardiac issues, NOTES claudication, NOTES cold feet, denies peripheral arterial stent. Respiratory: The patient denies tuberculosis, NOTES pneumonia, NOTES frequent cough, denies pulmonary embolism, NOTES shortness of breath, and denies coughing up blood. Gastrointestinal: The patient NOTES difficulty swallowing, NOTES acid reflux, denies ulcers, denies vomiting, denies jaundice/hepatitis, NOTES gallbladder problems, denies black or tarry stools, NOTES hemorrhoids, NOTES bleeding from rectum, denies diverticulitis, denies constipation, denies diarrhea, denies loss of stool control, and NOTES hernias. Kidney/Bladder: The patient denies kidney stones, denies urine infections, and denies bloody urine.NOTES renal failure Skin: The patient denies a history of skin cancer, denies bleeding/changing moles, and denies a history of skin rash. Neurologic: The patient denies a history of epilepsy/convulsions, denies headaches, denies head/spinal injuries, and denies stroke/TIA. Psychiatric: The patient denies psychiatric medications, denies depression, and denies voices, denies substance abuse. Endocrine: The patient denies thyroid disorders, NOTES diabetes, and denies hormonal problems. Hematologic: The patient denies a history of bruising, denies bleeding, and denies anemia, denies blood clots. Infections: The patient denies a history of measles and mumps, denies rheumatic fever, and denies sexually transmitted diseases. Musculoskeletal: The patient denies back pain/injury, denies back problems, denies sciatica, NOTES knee/foot trouble, denies arthritis, or NOTES gout. When was patient's last Mammogram screening greater than 5 years Last Colonoscopy: 2011 Meenakshi Lemos RN PHYSICAL EXAMINATION: General: The patient is 77 year old female, well nourished, well hydrated in no acute distress. The patient is oriented to time, place, and person. VITALS: Blood pressure 116/64, pulse 68, resp. rate 18, height 170.2 cm (5' 7), weight 90.4 kg (199 lb 6.4 oz). Body mass index is 31.23 kg/m?. HEENT: Normal cephalic, ataumatic, pupils are equally round, sclera are anicteric, mucous membranes are moist, oropharynx is clear. Neck has no masses, asymmetry or lymphadenopathy. Thyroid is unremarkable. Patient on continuous oxygen Respiratory: Clear to auscultation and percussion. Normal respiratory excursion and pattern. - Distant Cardiac: Examination is regular rate and rhythm. Distant Abdominal exam: Soft, nontender, with no palpable masses. No hepatosplenomegaly. No palpable hernias. Rectal exam: exam deferred Extremities: no clubbing, cyanosis or edema. No adenopathy. Other: LABORATORY VALUES: As Noted RADIOLOGIC STUDIES: As Noted Assessment IMPRESSION: Heme positive stools, recent upper endoscopy for gastritis and dysphagia with a Schatzki's ring present, colonoscopy, approximate 5 years previously, recent myocardial infarction, severe comorbidities PLAN: The patient's hemoglobin is currently stable and she does not have iron deficiency parameters. She notes no significant abdominal pain or active or significant bleeding episodes. Given the fact that patients on anticoagulation, has had a recent upper endoscopy demonstrated no severe problems and colonoscopy 5 years ago likely demonstrated no significant issues, I feel the risks of endoscopy in the early post myocardial infarction outweight the benefits. I would generally wait at least 3 months before performing endoscopy. The patient had more active bleeding or other symptoms. This could be reconsidered. At that time, I would consider upper and lower endoscopy. We discussed the risks and benefits of the planned endoscopy. I have informed the patient that complications can occur including failure to complete the endoscopy and perforation. The patient had the opportunity to ask questions concerning the planned endoscopy. My staff has also explained the procedure to the patient in understandable terms and has given the patient printed material concerning the procedure. The patient freely consents to surgery. Bowel prep will be challenging due to the patient's cardiomyopathy and renal failure to avoid dehydration and/or hypotension. This will likely need to be performed in hospital for bowel prep. I plan for monitored anesthetic care. Diagnoses: (K92.1) Blood in stool (primary encounter diagnosis) (I21.3) ST elevation myocardial infarction (STEMI), unspecified artery (HCC) My findings have been communicated to Dr. Jameson Kamara MD via shared medical record. This note will be forwarded to Dr. Jameson Kamara MD. Return to Clinic: The patient is instructed to follow-up with me as needed. Dina Claudio MD CNOV Observed: 05/31/2018 Status: COMPLETED Source: [place] 1:30 PM [facility] REPOSITORY Office Visit ([facility]) LUZ BACA ([id number]) 1940 F Date Time Provider Department 05/31/18 1:30 PM DINA CLAUDIO During your visit today, we recorded the following information about you: Pulse Respiration Blood pressure Weight 68/minute 18/minute 116/64 90.4 kg Height 1.702 m Meenakshi Lemos RN 05/31/2018 2:11 PM Signed REVIEW OF SYSTEMS: General: The patient NOTES fatigue, denies weight loss, NOTES weight gain, NOTES feeling hot, and denies feelings of cold. Eyes: The patient denies glaucoma, NOTES eye injury/surgery, wears glasses or contacts. Ear/Nose/Throat: The patient denies allergies, denies hayfever, denies ear infections, and NOTES bloody noses. Cardiovascular: The patient NOTES chest pain, NOTES heart disease, denies high blood pressure,NOTES cardiac stent, denies prior heart attack, NOTES irregular heart beat, NOTES high cholesterol, NOTES poor circulation, NOTES heart failure, other cardiac issues, NOTES claudication, NOTES cold feet, denies peripheral arterial stent. Respiratory: The patient denies tuberculosis, NOTES pneumonia, NOTES frequent cough, denies pulmonary embolism, NOTES shortness of breath, and denies coughing up blood. Gastrointestinal: The patient NOTES difficulty swallowing, NOTES acid reflux, denies ulcers, denies vomiting, denies jaundice/hepatitis, NOTES gallbladder problems, denies black or tarry stools, NOTES hemorrhoids, NOTES bleeding from rectum, denies diverticulitis, denies constipation, denies diarrhea, denies loss of stool control, and NOTES hernias. Kidney/Bladder: The patient denies kidney stones, denies urine infections, and denies bloody urine.NOTES renal failure Skin: The patient denies a history of skin cancer, denies bleeding/changing moles, and denies a history of skin rash. Neurologic: The patient denies a history of epilepsy/convulsions, denies headaches, denies head/spinal injuries, and denies stroke/TIA. Psychiatric: The patient denies psychiatric medications, denies depression, and denies voices, denies substance abuse. Endocrine: The patient denies thyroid disorders, NOTES diabetes, and denies hormonal problems. Hematologic: The patient denies a history of bruising, denies bleeding, and denies anemia, denies blood clots. Infections: The patient denies a history of measles and mumps, denies rheumatic fever, and denies sexually transmitted diseases. Musculoskeletal: The patient denies back pain/injury, denies back problems, denies sciatica, NOTES knee/foot trouble, denies arthritis, or NOTES gout. When was patient's last Mammogram screening greater than 5 years Last Colonoscopy: 2011 Meenakshi Claudio MD 06/01/2018 4:51 PM Signed HISTORY AND PHYSICAL Luz Baca 1940 REFERRING PHYSICIAN: Adriel Pringle (Elías), Ebonie* CHIEF COMPLAINT: New Patient (positive occult stool) HPI: The patient is a 77 year old female referred for endoscopy. Luz notes , denies abdominal pain area did the patient notes episodic diarrhea and constipation. More recently, the patient has had more episodes of diarrhea. While denying true pain. She does note some abdominal cramping and periumbilical area. The patient denies nausea or vomiting. She denies hematemesis. She denies melena or hematochezia. The patient had a recent stool for occult blood which was positive. Patient has a recent history of dysphagia. She underwent upper endoscopy with esophageal dilatation on's December 31, 2017. This was performed in [place]. The patient was found to have a 3 cm hiatal hernia irregular GE junction and a shop. He is wearing that was dilated. Pathology returned as chronic active gastritis with H. pylori- like organisms. Negative for dysplasia on the stomach, biopsy, gastric biopsy demonstrated reactive gastric mucosa, negative for metaplasia or dysplasia. Esophageal biopsy returned as active inflammation. H. pylori antibody was positive. The patient was treated with eradication for H. pylori. She's been maintained on proton pump inhibitors. The patient had colonoscopy performed she recalls 5 years previously and [place]. She is uncertain what the findings were or what the recommended follow-up were. Has extensive past medical history - most recently, the patient had a non-ST segment myocardial infarction on May 13. She underwent cardiac catheterization which demonstrated an occluded venous graft, a patent VU graft and a 60% stenosis of the mid LAD. The patient also has a history of supraventricular tachycardia, sleep apnea, morbid obesity, hypertrophic obstructive cardiomyopathy, diabetic neuropathy, diabetes, COPD, chronic renal failure on dialysis with failed dialysis access. Carotid artery disease pacer defibrillator in place. She is referred for endoscopy due to blood in stool The patient is being seen by me today at the request of Dr. Jameson Kamara MD for my opinion and advice regarding need for endoscopy given chronic and severe medical comorbidities. PAST MEDICAL HISTORY Diagnosis Date - Arthritis - Atrial fibrillation (HCC) - CAD (coronary artery disease) stents x9, defibrillator, CABG. Seeing Dr. Cardona - Cardiac defibrillator in place - Cardiomegaly - Carotid artery disease (HCC) left - Chronic kidney disease (CKD) stage G3b/A2, moderately decreased glomerular filtration rate (GFR) between 30-44 mL/min/1.73 square meter and albuminuria creatinine ratio between 30-299 mg/g ([facility]) Dr. Martin - COPD (chronic obstructive pulmonary disease) ([facility]) Dr. Cruz - Depression - Diabetes (HCC) - Diabetic neuropathy ([facility]) - Edema - GERD (gastroesophageal reflux disease) - Gout with hyperuricemia - HH (hiatus hernia) - HOCM (hypertrophic obstructive cardiomyopathy) ([facility]) S/P Septal Myectomy in 2003. Now with LVEF 50% and mod/severe pulm HTN. - HTN (hypertension) - Hyperlipidemia - Morbid obesity with BMI of 40.0-44.9, adult ([facility]) - Sleep apnea 2011 not on CPAP, unable to tolerate mask 02/2017 - SVT (supraventricular tachycardia) ([facility]) NSVT and questionable VT in 2003 post op PAST SURGICAL HISTORY Procedure Laterality Date - CHOLECYSTECTOMY HX - DIALYSIS ACCESS SYSTEM - HEART SURGERY HX 07/18/2004 Septal myectomy and CABG x2 (DEBORAH-LAD, SVG-PDA). - HYSTERECTOMY HX - IANDD PERIANAL ABSCESS - PACEMAKER with defib - PAST SURGICAL HISTORY OF left breast nodule removed - PAST SURGICAL HISTORY OF skin lesions removed Current Outpatient Prescriptions: ELIQUIS 5 mg tab(s) TAKE ONE TABLET BY MOUTH TWICE DAILY metoclopramide HCl (REGLAN) 5 mg tablet Take 1 tablet by mouth three times daily. isosorbide mononitrate ER (IMDUR) 60 mg 24 hr tablet Take 1.5 tablets by mouth once daily. pantoprazole DR (PROTONIX) 40 mg tablet Take 1 tablet by mouth once daily. insulin aspart U-100 (NOVOLOG FLEXPEN U-100 INSULIN) 100 unit/mL inpn Using Sliding Scale: 150-209 1 unit, 210-269 2 units, 270-329 3 units, 330-389 4 units, 390-449 5 units simvastatin (ZOCOR) 20 mg tablet Take 2 tablets by mouth every morning. senna (SENNA) 8.6 mg tab Take 8.6 mg by mouth once daily. HYDROcodone-acetaminophen (NORCO) 5-325 mg per tablet Take 1 tablet by mouth every 8 hours as needed. traZODone (DESYREL) 50 mg tablet Take 50 mg by mouth daily at bedtime. traMADol (ULTRAM) 50 mg tablet Take 50 mg by mouth every 8 hours as needed. ondansetron (ZOFRAN) 4 mg tablet Take 4 mg by mouth every 8 hours as needed. ipratropium-albuterol (DUONEB) 0.5 mg-3 mg(2.5 mg base)/3 mL nebu Inhale 3 mL as instructed every 4 hours while awake. And prn for wheezing/shortness of breath. budesonide (PULMICORT) 0.5 mg/2 mL nebulizer solution Use 2 mL via nebulizer once daily. INHALE 2 ML BY NEBULIZER OVER 5-15 MINUTES EVERY 12 HOURS. amiodarone (PACERONE) 200 mg tablet Take 1 tablet by mouth once daily. carvedilol (COREG) 3.125 mg tablet Take 1 tablet by mouth twice daily with meals. insulin glargine (LANTUS SOLOSTAR U-100 INSULIN) 100 unit/mL (3 mL) inpn Inject 50 Units subcutaneously every morning. insulin glargine (LANTUS SOLOSTAR U-100 INSULIN) 100 unit/mL (3 mL) inpn Inject 36 Units subcutaneously daily at bedtime. bacitracin (ANTIBIOTIC, BACITRACIN ZINC,) ointment Apply 1 application to affected area twice daily. nystatin (NYSTOP) powder Apply 1 application to affected area three times daily. guaiFENesin-dextromethorphan (ROBITUSSIN DM) 100-10 mg/5 mL syrup Take 5-10 mL by mouth every 6 hours as needed for Cough. nitroglycerin sublingual (NITROQUICK) 0.4 mg SL tablet Dissolve 1 tablet under the tongue every 5 minutes as needed. OXYGEN, HOME THERAPY, Inhale 2.5 L/min as instructed continuous. 3 L/min when leaves home. No current facility-administered medications for this visit. ALLERGIES: Aspirin; Bactrim [Sulfamethoxazole-Trimethoprim]; Latex; Penicillins; Tetracycline; Atorvastatin; Codeine; Dilaudid [Hydromorphone (Bulk)]; Meperidine; Pentazocine; Pioglitazone; Propoxyphene PERSONAL HISTORY: Social History Marital status: Spouse name: Years of education: Number of children: Social History Main Topics Smoking status: Former Smoker Packs/day: 2.50 Years: 43.00 Types: Cigarettes Start date: 1961 Quit date: 07/07/2004 Smokeless tobacco: Never Used Alcohol use: No Drug use: No Other Topics Concern Caffeine Concern Yes Comment:coffee 1 cup daily Special Diet No Comment:Regular Exercise No Comment:no unable, due to SOB x several months. Social History Narrative Patient and daughter live together. FAMILY HISTORY: FAMILY HISTORY Problem Relation Age of Onset - Hypertension Mother living at age 93, HTN - Heart Failure Mother NE - Cancer Father age 71, lung cancer - Heart Attack Sister - COPD Brother - Heart Paternal Grandmother - Heart Paternal Grandfather - Heart Sister - Diabetes Sister - Heart Sister - Breast Cancer Sister - Diabetes Sister - Hypertension Brother - Diabetes Brother REVIEW OF SYMPTOMS: The review of systems data was entered by the nurse and reviewed by tx Nursing Notes: Meenakshi Lemos RN 05/31/2018 2:11 PM Signed REVIEW OF SYSTEMS: General: The patient NOTES fatigue, denies weight loss, NOTES weight gain, NOTES feeling hot, and denies feelings of cold. Eyes: The patient denies glaucoma, NOTES eye injury/surgery, wears glasses or contacts. Ear/Nose/Throat: The patient denies allergies, denies hayfever, denies ear infections, and NOTES bloody noses. Cardiovascular: The patient NOTES chest pain, NOTES heart disease, denies high blood pressure,NOTES cardiac stent, denies prior heart attack, NOTES irregular heart beat, NOTES high cholesterol, NOTES poor circulation, NOTES heart failure, other cardiac issues, NOTES claudication, NOTES cold feet, denies peripheral arterial stent. Respiratory: The patient denies tuberculosis, NOTES pneumonia, NOTES frequent cough, denies pulmonary embolism, NOTES shortness of breath, and denies coughing up blood. Gastrointestinal: The patient NOTES difficulty swallowing, NOTES acid reflux, denies ulcers, denies vomiting, denies jaundice/hepatitis, NOTES gallbladder problems, denies black or tarry stools, NOTES hemorrhoids, NOTES bleeding from rectum, denies diverticulitis, denies constipation, denies diarrhea, denies loss of stool control, and NOTES hernias. Kidney/Bladder: The patient denies kidney stones, denies urine infections, and denies bloody urine.NOTES renal failure Skin: The patient denies a history of skin cancer, denies bleeding/changing moles, and denies a history of skin rash. Neurologic: The patient denies a history of epilepsy/convulsions, denies headaches, denies head/spinal injuries, and denies stroke/TIA. Psychiatric: The patient denies psychiatric medications, denies depression, and denies voices, denies substance abuse. Endocrine: The patient denies thyroid disorders, NOTES diabetes, and denies hormonal problems. Hematologic: The patient denies a history of bruising, denies bleeding, and denies anemia, denies blood clots. Infections: The patient denies a history of measles and mumps, denies rheumatic fever, and denies sexually transmitted diseases. Musculoskeletal: The patient denies back pain/injury, denies back problems, denies sciatica, NOTES knee/foot trouble, denies arthritis, or NOTES gout. When was patient's last Mammogram screening greater than 5 years Last Colonoscopy: 2011 Meenakshi Lemos RN PHYSICAL EXAMINATION: General: The patient is 77 year old female, well nourished, well hydrated in no acute distress. The patient is oriented to time, place, and person. VITALS: Blood pressure 116/64, pulse 68, resp. rate 18, height 170.2 cm (5' 7), weight 90.4 kg (199 lb 6.4 oz). Body mass index is 31.23 kg/m?. HEENT: Normal cephalic, ataumatic, pupils are equally round, sclera are anicteric, mucous membranes are moist, oropharynx is clear. Neck has no masses, asymmetry or lymphadenopathy. Thyroid is unremarkable. Patient on continuous oxygen Respiratory: Clear to auscultation and percussion. Normal respiratory excursion and pattern. - Distant Cardiac: Examination is regular rate and rhythm. Distant Abdominal exam: Soft, nontender, with no palpable masses. No hepatosplenomegaly. No palpable hernias. Rectal exam: exam deferred Extremities: no clubbing, cyanosis or edema. No adenopathy. Other: LABORATORY VALUES: As Noted RADIOLOGIC STUDIES: As Noted Assessment IMPRESSION: Heme positive stools, recent upper endoscopy for gastritis and dysphagia with a Schatzki's ring present, colonoscopy, approximate 5 years previously, recent myocardial infarction, severe comorbidities PLAN: The patient's hemoglobin is currently stable and she does not have iron deficiency parameters. She notes no significant abdominal pain or active or significant bleeding episodes. Given the fact that patients on anticoagulation, has had a recent upper endoscopy demonstrated no severe problems and colonoscopy 5 years ago likely demonstrated no significant issues, I feel the risks of endoscopy in the early post myocardial infarction outweight the benefits. I would generally wait at least 3 months before performing endoscopy. The patient had more active bleeding or other symptoms. This could be reconsidered. At that time, I would consider upper and lower endoscopy. We discussed the risks and benefits of the planned endoscopy. I have informed the patient that complications can occur including failure to complete the endoscopy and perforation. The patient had the opportunity to ask questions concerning the planned endoscopy. My staff has also explained the procedure to the patient in understandable terms and has given the patient printed material concerning the procedure. The patient freely consents to surgery. Bowel prep will be challenging due to the patient's cardiomyopathy and renal failure to avoid dehydration and/or hypotension. This will likely need to be performed in hospital for bowel prep. I plan for monitored anesthetic care. Diagnoses: (K92.1) Blood in stool (primary encounter diagnosis) (I21.3) ST elevation myocardial infarction (STEMI), unspecified artery (HCC) My findings have been communicated to Dr. Jameson Kamara MD via shared medical record. This note will be forwarded to Dr. Jameson Kamara MD. Return to Clinic: The patient is instructed to follow-up with me as needed. Dina Claudio MD Referring Provider: ADRIEL PRINGLE ([facility]) [[id number]] Allergies As of Date: 05/31/2018 Noted Allergy Reaction ASPIRIN 01/20/2018 14 - Other: See Comments Comments: Patient states that she bled out every orifice, sts not allowed to take it at all. Patient states she was bleeding out of nose and mouth after one dose. BACTRIM (SULFAMETHOXAZOLE-TRIMETH*05/17/2017 14 - Other: See Comments Comments: My throat swells up. LATEX 05/17/2017 2 - Rash 9 - Itching Comments: Itching and welts. No wheezing or shortness of breath. PENICILLINS 07/14/2004 2 - Rash 9 - Itching Comments: Tolerated ceftriaxone during 11/2017 admission and cefepime during 12/2017 admission TETRACYCLINE 09/29/2010 2 - Rash 8 - GI Upset Comments: Emesis and diarrhea. ATORVASTATIN 05/17/2017 2 - Rash CODEINE 05/17/2017 14 - Other: See Comments Comments: Numbness DILAUDID (HYDROMORPHONE (BULK)) 05/17/2017 1 - Mental Status Change MEPERIDINE 07/14/2004 PENTAZOCINE 07/14/2004 PIOGLITAZONE 05/17/2017 16 - Unknown PROPOXYPHENE 07/14/2004 Date Reviewed: 05/31/2018 Reviewed by: Meenakshi Lemos RN - Fully Assessed Reason for Visit: New Patient [172] Cmt: positive occult stool Primary Visit Diagnosis:Blood in stool [K92.1] Other Visit Diagnosis:ST elevation myocardial infarction (STEMI), unspecified artery (HCC) [I21.3] Prescriptions as of 05/31/2018 Sig: ELIQUIS 5 MG TABLET TAKE ONE TABLET BY MOUTH TWIC* METOCLOPRAMIDE 5 MG TABLET Take 1 tablet by mouth three * ISOSORBIDE MONONITRATE ER 60 * Take 1.5 tablets by mouth onc* PANTOPRAZOLE 40 MG TABLET,DEL* Take 1 tablet by mouth once d* INSULIN ASPART U-100 100 UNI* Using Sliding Scale: 150-209* SIMVASTATIN 20 MG TABLET Take 2 tablets by mouth every* SENNOSIDES 8.6 MG TABLET Take 8.6 mg by mouth once carlos* HYDROCODONE 5 MG-ACETAMINOPHE* Take 1 tablet by mouth every * TRAZODONE 50 MG TABLET Take 50 mg by mouth daily at * TRAMADOL 50 MG TABLET Take 50 mg by mouth every 8 h* ONDANSETRON HCL 4 MG TABLET Take 4 mg by mouth every 8 ho* IPRATROPIUM-ALBUTEROL 0.5 MG-* Inhale 3 mL as instructed leanne* BUDESONIDE 0.5 MG/2 ML SUSPEN* Use 2 mL via nebulizer once d* AMIODARONE 200 MG TABLET Take 1 tablet by mouth once d* CARVEDILOL 3.125 MG TABLET Take 1 tablet by mouth twice * INSULIN GLARGINE (U-100) 100 * Inject 50 Units subcutaneousl* INSULIN GLARGINE (U-100) 100 * Inject 36 Units subcutaneousl* BACITRACIN ZINC 500 UNIT/GRAM* Apply 1 application to affect* NYSTATIN 100,000 UNIT/GRAM TO* Apply 1 application to affect* X APIXABAN 5 MG TABLET Take 5 mg by mouth twice janeth* DEXTROMETHORPHAN-GUAIFENESIN * Take 5-10 mL by mouth every 6* NITROGLYCERIN 0.4 MG SUBLINGU* Dissolve 1 tablet under the t* OXYGEN (HOME THERAPY) Inhale 2.5 L/min as instructe* Problem List As Of Date 05/31/2018 Noted Resolved HOCM (hypertrophic obstructive cardiomyopathy) * 01/23/2018 Priority: I More... SVT (supraventricular tachycardia) (HCC) [I47.1] 01/21/2018 More... Carotid artery disease (HCC) [I77.9] 01/22/2018 CAD (coronary artery disease) [I25.10] Priority: E More... Hypertension [I10] Priority: L More... Hyperlipidemia [E78.5] Pneumonia [J18.9] 10/27/2017 More... COPD (chronic obstructive pulmonary disease) (H* Priority: F More... Sleep apnea [G47.30] Priority: I More... HH (hiatus hernia) [K44.9] 01/21/2018 GERD (gastroesophageal reflux disease) [K21.9] Priority: K More... More... Arthritis [M19.90] Numbness and tingling of right leg [R20.0, R20.* 01/21/2018 Depression [F32.9] Atrial fibrillation (HCC) [I48.91] INVALID FOR* Priority: C More... Uncontrolled type 2 diabetes mellitus with stag*INVALID FOR* Priority: H More... More... More... Heart failure, systolic, acute (HCC) [I50.21] INVALID FOR*01/21/2018 More... Obesity [E66.09] INVALID FOR* Priority: M More... Gout [M10.9] Pacemaker [Z95.0] Priority: D More... Chronic combined systolic and diastolic CHF (co*INVALID FOR* Priority: B More... Elevated troponin [R74.8] INVALID FOR*01/22/2018 Priority: G More... Pulmonary hypertension (HCC) [I27.20] INVALID FOR* Oral thrush [B37.0] INVALID FOR*01/21/2018 Hyponatremia [E87.1] INVALID FOR* Priority: J More... Hyperkalemia [E87.5] INVALID FOR*01/22/2018 Priority: J Chest pain in adult [R07.9] INVALID FOR*02/12/2018 Priority: A More... Acute renal failure superimposed on stage 3 chr*INVALID FOR* Priority: A More... Obesity, Class II, BMI 35-39.9 [E66.9] INVALID FOR* Visit Notes: >> Meenakshi Richardson May 31, 2018 2:06 PM Status: Signed REVIEW OF SYSTEMS: General: The patient NOTES fatigue, denies weight loss, NOTES weight gain, NOTES feeling hot, and denies feelings of cold. Eyes: The patient denies glaucoma, NOTES eye injury/surgery, wears glasses or contacts. Ear/Nose/Throat: The patient denies allergies, denies hayfever, denies ear infections, and NOTES bloody noses. Cardiovascular: The patient NOTES chest pain, NOTES heart disease, denies high blood pressure,NOTES cardiac stent, denies prior heart attack, NOTES irregular heart beat, NOTES high cholesterol, NOTES poor circulation, NOTES heart failure, other cardiac issues, NOTES claudication, NOTES cold feet, denies peripheral arterial stent. Respiratory: The patient denies tuberculosis, NOTES pneumonia, NOTES frequent cough, denies pulmonary embolism, NOTES shortness of breath, and denies coughing up blood. Gastrointestinal: The patient NOTES difficulty swallowing, NOTES acid reflux, denies ulcers, denies vomiting, denies jaundice/hepatitis, NOTES gallbladder problems, denies black or tarry stools, NOTES hemorrhoids, NOTES bleeding from rectum, denies diverticulitis, denies constipation, denies diarrhea, denies loss of stool control, and NOTES hernias. Kidney/Bladder: The patient denies kidney stones, denies urine infections, and denies bloody urine.NOTES renal failure Skin: The patient denies a history of skin cancer, denies bleeding/changing moles, and denies a history of skin rash. Neurologic: The patient denies a history of epilepsy/convulsions, denies headaches, denies head/spinal injuries, and denies stroke/TIA. Psychiatric: The patient denies psychiatric medications, denies depression, and denies voices, denies substance abuse. Endocrine: The patient denies thyroid disorders, NOTES diabetes, and denies hormonal problems. Hematologic: The patient denies a history of bruising, denies bleeding, and denies anemia, denies blood clots. Infections: The patient denies a history of measles and mumps, denies rheumatic fever, and denies sexually transmitted diseases. Musculoskeletal: The patient denies back pain/injury, denies back problems, denies sciatica, NOTES knee/foot trouble, denies arthritis, or NOTES gout. When was patient's last Mammogram screening greater than 5 years Last Colonoscopy: 2011 Meenakshi Long RN Encounter Status:Closed by DINA CLAUDIO MD on 06/01/18 PROGRESS Observed: 05/31/2018 Status: COMPLETED Source: [place] 11:53 AM [facility] REPOSITORY HNO ID: [id number] Author: Jameson Adams) Koffi Service: (none) Author Type: Physician Type: Progress Notes Filed: 05/31/2018 11:53 AM Note Text: Reviewed. PROGRESS Observed: 05/30/2018 Status: COMPLETED Source: [place] 4:31 PM [facility] REPOSITORY HNO ID: [id number] Author: Remi Briseno) Brent Service: (none) Author Type: Registered Nurse Type: Progress Notes Filed: 05/30/2018 4:39 PM Note Text: TRANSITION CARE MANAGEMENT (TCM) FOLLOW-UP NOTE Provider Action/FYI Still having intermittent chest pain, less severe since cardiology increased Imdur to 90 mg Patient identified by name and date of : YES Spoke to daughterOctavia Concerns: States patient is still having chest pain intermittently but it is less severe since Dr. Cardona increased Imdur to 90 mg. States she thinks BS this morning was 170's. Instructed to have patient call with BS log when she wakes up. States she will have her call tomorrow. Verbalized compliance with Lantus dose as ordered. Watermelon Inspector plan for next outreach: Will follow up tomorrow Signature Remi Kennedy RN May 30, 2018 CNCO Observed: 05/30/2018 Status: COMPLETED Source: [place] 12:00 AM [facility] REPOSITORY Letter Text [facility] [place] [address] [facility] [address] Dept: [phone] Dept Ene Hubbard DO May 30, 2018 Lzu Baca [address] [facility] [address] 1940 Dear , Your appointment on 10/04/18 has been cancelled. Please contact our office to reschedule your appointment. Please notify us of any change of your phone number or address. Sincerely, Ene Hubbard D.O. (Signed electronically to expedite mailing) LUDA Observed: 05/30/2018 Status: COMPLETED Source: [place] 12:00 AM [facility] REPOSITORY Patient Outreach (FAMPWS) LUZ BACA ([id number]) 1940 F Date Time Provider Department 05/30/18 REMI KENNEDY (RN) FAMPWS During your visit today, we recorded the following information about you: Remi Kennedy RN 05/30/2018 4:39 PM Signed TRANSITION CARE MANAGEMENT (TCM) FOLLOW-UP NOTE Provider Action/FYI Still having intermittent chest pain, less severe since cardiology increased Imdur to 90 mg Patient identified by name and date of : YES Spoke to daughterOctavia Concerns: States patient is still having chest pain intermittently but it is less severe since Dr. Cardona increased Imdur to 90 mg. States she thinks BS this morning was 170's. Instructed to have patient call with BS log when she wakes up. States she will have her call tomorrow. Verbalized compliance with Lantus dose as ordered. Watermelon Inspector plan for next outreach: Will follow up tomorrow Signature Remi Kennedy RN May 30, 2018 Jameson Kamara MD 05/31/2018 11:53 AM Signed Reviewed. Allergies As of Date: 05/30/2018 Noted Allergy Reaction ASPIRIN 01/20/2018 14 - Other: See Comments Comments: Patient states that she bled out every orifice, sts not allowed to take it at all. Patient states she was bleeding out of nose and mouth after one dose. BACTRIM (SULFAMETHOXAZOLE-TRIMETH*05/17/2017 14 - Other: See Comments Comments: My throat swells up. LATEX 05/17/2017 2 - Rash 9 - Itching Comments: Itching and welts. No wheezing or shortness of breath. PENICILLINS 07/14/2004 2 - Rash 9 - Itching Comments: Tolerated ceftriaxone during 11/2017 admission and cefepime during 12/2017 admission TETRACYCLINE 09/29/2010 2 - Rash 8 - GI Upset Comments: Emesis and diarrhea. 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 [3610] Prescriptions as of 05/30/2018 Sig: METOCLOPRAMIDE 5 MG TABLET Take 1 tablet by mouth three * ISOSORBIDE MONONITRATE ER 60 * Take 1.5 tablets by mouth onc* PANTOPRAZOLE 40 MG TABLET,DEL* Take 1 tablet by mouth once d* INSULIN ASPART U-100 100 UNI* Using Sliding Scale: 150-209* SIMVASTATIN 20 MG TABLET Take 2 tablets by mouth every* SENNOSIDES 8.6 MG TABLET Take 8.6 mg by mouth once carlos* HYDROCODONE 5 MG-ACETAMINOPHE* Take 1 tablet by mouth every * TRAZODONE 50 MG TABLET Take 50 mg by mouth daily at * TRAMADOL 50 MG TABLET Take 50 mg by mouth every 8 h* ONDANSETRON HCL 4 MG TABLET Take 4 mg by mouth every 8 ho* IPRATROPIUM-ALBUTEROL 0.5 MG-* Inhale 3 mL as instructed leanne* BUDESONIDE 0.5 MG/2 ML SUSPEN* Use 2 mL via nebulizer once d* AMIODARONE 200 MG TABLET Take 1 tablet by mouth once d* CARVEDILOL 3.125 MG TABLET Take 1 tablet by mouth twice * INSULIN GLARGINE (U-100) 100 * Inject 50 Units subcutaneousl* INSULIN GLARGINE (U-100) 100 * Inject 36 Units subcutaneousl* BACITRACIN ZINC 500 UNIT/GRAM* Apply 1 application to affect* NYSTATIN 100,000 UNIT/GRAM TO* Apply 1 application to affect* X APIXABAN 5 MG TABLET Take 5 mg by mouth twice janeth* DEXTROMETHORPHAN-GUAIFENESIN * Take 5-10 mL by mouth every 6* NITROGLYCERIN 0.4 MG SUBLINGU* Dissolve 1 tablet under the t* OXYGEN (HOME THERAPY) Inhale 2.5 L/min as instructe* Problem List As Of Date 05/30/2018 Noted Resolved HOCM (hypertrophic obstructive cardiomyopathy) * 01/23/2018 Priority: I More... SVT (supraventricular tachycardia) (HCC) [I47.1] 01/21/2018 More... Carotid artery disease (HCC) [I77.9] 01/22/2018 CAD (coronary artery disease) [I25.10] Priority: E More... Hypertension [I10] Priority: L More... Hyperlipidemia [E78.5] Pneumonia [J18.9] 10/27/2017 More... COPD (chronic obstructive pulmonary disease) (H* Priority: F More... Sleep apnea [G47.30] Priority: I More... HH (hiatus hernia) [K44.9] 01/21/2018 GERD (gastroesophageal reflux disease) [K21.9] Priority: K More... More... Arthritis [M19.90] Numbness and tingling of right leg [R20.0, R20.* 01/21/2018 Depression [F32.9] Atrial fibrillation (HCC) [I48.91] INVALID FOR* Priority: C More... Uncontrolled type 2 diabetes mellitus with stag*INVALID FOR* Priority: H More... More... More... Heart failure, systolic, acute (HCC) [I50.21] INVALID FOR*01/21/2018 More... Obesity [E66.09] INVALID FOR* Priority: M More... Gout [M10.9] Pacemaker [Z95.0] Priority: D More... Chronic combined systolic and diastolic CHF (co*INVALID FOR* Priority: B More... Elevated troponin [R74.8] INVALID FOR*01/22/2018 Priority: G More... Pulmonary hypertension (HCC) [I27.20] INVALID FOR* Oral thrush [B37.0] INVALID FOR*01/21/2018 Hyponatremia [E87.1] INVALID FOR* Priority: J More... Hyperkalemia [E87.5] INVALID FOR*01/22/2018 Priority: J Chest pain in adult [R07.9] INVALID FOR*02/12/2018 Priority: A More... Acute renal failure superimposed on stage 3 chr*INVALID FOR* Priority: A More... Obesity, Class II, BMI 35-39.9 [E66.9] INVALID FOR* Encounter Status:Closed by REMI KENNEDY on 06/01/18 ALBUMIN/CREAT RATIO Collected: 05/25/2018 Status: F Source: [place] 10:23 AM [facility] REPOSITORY TYPE CODE TESTS RESULT OUT OF REFERENCE UNITS RANGE LAB UCRR 20-300 mg/dL High Creatinine,Ur 417.1 ine,Ran LAB UALBR 0.0-23.0 mg/L High Albumin Urine 42.3 Random LAB UALBCR 0-30 mg/g Albumin/Creat 10 Ratio Result Comment: 30 to 300 mg/g indicates an increased risk for diabetic nephropathy. Greater than 300 mg/g is consistent with clinical nephropathy. (Am J Kidney Disease 1995, 25:107) Performed By: #### UACR #### [place] [address] HEMOGLOBIN A1C Collected: 05/25/2018 Status: F Source: [place] 10:21 AM [facility] REPOSITORY TYPE CODE TESTS RESULT OUT OF REFERENCE UNITS RANGE LAB HGBA1C 4.3-5.6 % High Hemoglobin A1c 6.8 LAB HBA0 mg/dL Est. Average Glucose 148 Result Comment: eAG: (Estimated average glucose) is a calculated value from HgbA1c and is outreach representative of the average blood glucose level in the last 2-3 month period. Performed By: #### HBA1C #### [place] [address] ALT Collected: 05/25/2018 Status: F Source: [place] 10:20 AM [facility] REPOSITORY TYPE CODE TESTS RESULT OUT OF RANGE REFERENCE UNITS LAB ALT 7-38 U/L ALT 13 Performed By: #### ALT, TSH #### [place] [address] TSH Collected: 05/25/2018 Status: F Source: [place] 10:20 AM [facility] REPOSITORY TYPE CODE TESTS RESULT OUT OF RANGE REFERENCE UNITS LAB TSH 0.400-5.500 uU/mL TSH 2.110 Performed By: #### ALT, TSH #### [facility] [place] [address] [place] [id number] LIPID PANEL, BASIC Collected: 05/25/2018 Status: F Source: [place] 10:19 AM [facility] REPOSITORY TYPE CODE TESTS RESULT OUT OF REFERENCE UNITS RANGE LAB CHOL <200 mg/dL Cholesterol 111 Result Comment: <200 mg/dL, Desirable 200-239 mg/dL, Borderline high >239 mg/dL, High LAB TRIGLY <150 mg/dL Triglyceride 91 Result Comment: <150 mg/dL, Normal 150-199 mg/dL, Borderline high 200-499 mg/dL, High >499 mg/dL, Very high LAB HDL >39 mg/dL HDL-Cholesterol Low 38 Result Comment: 40-59 mg/dL, Acceptable >59 mg/dL, High: Negative risk factor for coronary heart disease <40 mg/dL, Low: Positive risk factor for coronary heart disease LAB LDL <100 mg/dL LDL-Cholesterol 55 Result Comment: <100 mg/dL, Optimal 100-129 mg/dL, Near optimal/above optimal 130-159 mg/dL, Borderline high 160-189 mg/dL, High >189 mg/dL, Very high Secondary prevention optimal LDL Cholesterol levels are recommended to be < 70 mg/dL LAB NONHDL <130 mg/dL Non HDL Cholesterol 73 Result Comment: <130 mg/dL, Optimal 130-159 mg/dL, Near optimal/above optimal 160-189 mg/dL, Borderline high 190-219 mg/dL, High >219 mg/dL, Very high Secondary prevention optimal non HDL Cholesterol levels are recommended to be < 100 mg/dL LAB FT hrs Fasting Time 12 LAB VLDL <30 mg/dL VLDL Cholesterol 18 LAB TCHDL <5.10 TC:HDL Ratio 2.92 LAB LDLHDL <2.54 LDL:HDL Ratio 1.45 Result Comment: Reference: 1. National Cholesterol Education Program ATP III Guideline At-A-Glance Quick Desk Reference: National Heart, Lung, and Blood [place]. National Institutes of Health. 2001: NIH Publication No. 01-3305. 2. An International Atherosclerosis Society position paper: global recommendations for the management of dyslipidemia: executive summary, Atherosclerosis. 2014: 232(2):410-413. Performed By: #### LIPB #### [facility] [place] [address] [place], [place] [address] PROGRESS Observed: 05/24/2018 Status: COMPLETED Source: [place] 2:11 PM [facility] REPOSITORY HNO ID: [id number] Author: Aren Cardona Service: (none) Author Type: Physician Type: Progress Notes Filed: 05/24/2018 5:33 PM Note Text: PERTINENT CARDIAC HISTORY ASHD - CABGx3 2003, PCIx6 RCA 2013, PCIx3 2015 HCM - septal myectomy 2003 HTN DM HL MARLA - unable to tolerate CPAP PAF CRF - on dialysis CHF - systolic, DAMION-I/ARB intolerance (CRF) Cardiomyopathy - ischemic, ICD 2014, revised 11/2016, beta lenny intolerance ADHERENCE TO GUIDELINES DAMION-I or ARB for HF with prior LVEF<40 (NQF 0081) - CRF ASA or Plavix for ASHD (NQF 0067) - restart Beta lenny for ASHD with prior NE or prior LVEF<40 (NQF 0070) - COPD Beta lenny for HF with prior LVEF<40 (NQF 0083) - COPD DAMION-I or ARB for ASHD with DM or prior LVEF<40 (NQF 0066) - CRF Statin therapy for ASHD or FHL or DM - met BMI documented and plan if >25 (NQF 0421) - lifestyle recommendation form Tobacco use screening and referral (NQF 0028) - lifestyle recommendation form Recommendation for whole food, plant based diet - lifestyle recommendation form CLINICAL IMPRESSION/PLAN: Luz Baca is clinically stable with respect to her heart failure. Global left ventriclular function is preserved. I have recommended that she increase isosorbide to 90 milligrams daily and use nitroglycerin liberally. She may benefit from the addition of a calcium lenny or possibly ranolazine. For the time being, she will continue on amiodarone. We will check basic profile, TSH and ALT. She has an appointment with electrophysiology later this year and a decision can be made at that time whether to continue amiodarone. I will see her in 4 months. I've asked her to contact me if there is any increase in chest pain or shortness of breath. She was reminded that her care is potentially being compromised by the number of physicians that she is seeing. She has gone to several hospitals recently. Written and verbal health teaching given to patient, patient verbalizes understanding and agrees with treatment plan. DIAGNOSIS FOR VISIT: ASHD CHF HISTORY OF PRESENT ILLNESS Luz Baca returns for follow follow-up visit. Since her last visit, she has been hospitalized at least twice. She was started on amiodarone while hospitalized in [place]. She went to rehabilitation facility for a while. She was hospitalized at [facility] with decompensated heart failure. She was taken off her DAMION inhibitor and started on hydralazine and nitrates. She underwent angiography as her troponin was elevated. No significant obstructive disease was identified. She continues to have intermittent chest discomfort. She has been seen in the emergency department as recently as last week. CT scan reportedly showed no evidence of pulmonary embolus. She reports that nitroglycerin helps her discomfort, but does not last. She is currently on dialysis and volume overload has not been an issue recently. She denies syncope, TIAs, amaurosis or claudication. She is occasionally aware of an irregular heart rhythm, lasting seconds. ALLERGIES: ALLERGIES Allergen Reactions - Aspirin Other: See Comments Patient states that she bled out every orifice, sts not allowed to take it at all. Patient states she was bleeding out of nose and mouth after one dose. - Bactrim [Sulfametho* Other: See Comments My throat swells up. - Latex Rash, Itching Itching and welts. No wheezing or shortness of breath. - Penicillins Rash, Itching Tolerated ceftriaxone during 11/2017 admission and cefepime during 12/2017 admission - Tetracycline Rash, GI Upset Emesis and diarrhea. - Atorvastatin Rash - Codeine Other: See Comments Numbness - Dilaudid [Hydromorp* Mental Status Change - Meperidine - Pentazocine - Pioglitazone Unknown - Propoxyphene CURRENT OUTPATIENT MEDICATIONS: isosorbide mononitrate ER (IMDUR) 60 mg 24 hr tablet Take 1 tablet by mouth once daily. pantoprazole DR (PROTONIX) 40 mg tablet Take 1 tablet by mouth once daily. insulin aspart U-100 (NOVOLOG FLEXPEN U-100 INSULIN) 100 unit/mL inpn Using Sliding Scale: 150-209 1 unit, 210-269 2 units, 270- 329 3 units, 330-389 4 units, 390-449 5 units simvastatin (ZOCOR) 20 mg tablet Take 2 tablets by mouth every morning. senna (SENNA) 8.6 mg tab Take 8.6 mg by mouth once daily. traZODone (DESYREL) 50 mg tablet Take 50 mg by mouth daily at bedtime. traMADol (ULTRAM) 50 mg tablet Take 50 mg by mouth every 8 hours as needed. ondansetron (ZOFRAN) 4 mg tablet Take 4 mg by mouth every 8 hours as needed. ipratropium-albuterol (DUONEB) 0.5 mg-3 mg(2.5 mg base)/3 mL nebu Inhale 3 mL as instructed every 4 hours while awake. And prn for wheezing/shortness of breath. amiodarone (PACERONE) 200 mg tablet Take 1 tablet by mouth once daily. carvedilol (COREG) 3.125 mg tablet Take 1 tablet by mouth twice daily with meals. insulin glargine (LANTUS SOLOSTAR U-100 INSULIN) 100 unit/mL (3 mL) inpn Inject 50 Units subcutaneously every morning. bacitracin (ANTIBIOTIC, BACITRACIN ZINC,) ointment Apply 1 application to affected area twice daily. nystatin (NYSTOP) powder Apply 1 application to affected area three times daily. apixaban (ELIQUIS) 5 mg tab(s) Take 5 mg by mouth twice daily. nitroglycerin sublingual (NITROQUICK) 0.4 mg SL tablet Dissolve 1 tablet under the tongue every 5 minutes as needed. OXYGEN, HOME THERAPY, Inhale 2.5 L/min as instructed continuous. 3 L/min when leaves home. HYDROcodone-acetaminophen (NORCO) 5-325 mg per tablet Take 1 tablet by mouth every 8 hours as needed. budesonide (PULMICORT) 0.5 mg/2 mL nebulizer solution Use 2 mL via nebulizer once daily. INHALE 2 ML BY NEBULIZER OVER 5-15 MINUTES EVERY 12 HOURS. insulin glargine (LANTUS SOLOSTAR U-100 INSULIN) 100 unit/mL (3 mL) inpn Inject 36 Units subcutaneously daily at bedtime. guaiFENesin-dextromethorphan (ROBITUSSIN DM) 100-10 mg/5 mL syrup Take 5-10 mL by mouth every 6 hours as needed for Cough. PAST MEDICAL HISTORY Diagnosis Date - Arthritis - Atrial fibrillation (HCC) - CAD (coronary artery disease) stents x9, defibrillator, CABG. Seeing Dr. Cardona - Cardiac defibrillator in place - Cardiomegaly - Carotid artery disease (HCC) left - Chronic kidney disease (CKD) stage G3b/A2, moderately decreased glomerular filtration rate (GFR) between 30-44 mL/min/1.73 square meter and albuminuria creatinine ratio between 30-299 mg/g ([facility]) Dr. Martin - COPD (chronic obstructive pulmonary disease) ([facility]) Dr. Cruz - Depression - Diabetes ([facility]) - Diabetic neuropathy ([facility]) - Edema - GERD (gastroesophageal reflux disease) - Gout with hyperuricemia - HH (hiatus hernia) - HOCM (hypertrophic obstructive cardiomyopathy) ([facility]) S/P Septal Myectomy in 2003. Now with LVEF 50% and mod/severe pulm HTN. - HTN (hypertension) - Hyperlipidemia - Morbid obesity with BMI of 40.0-44.9, adult ([facility]) - Sleep apnea 2011 not on CPAP, unable to tolerate mask 02/2017 - SVT (supraventricular tachycardia) ([facility]) NSVT and questionable VT in 2003 post op PAST SURGICAL HISTORY Procedure Laterality Date - CHOLECYSTECTOMY HX - HEART SURGERY HX 07/18/2004 Septal myectomy and CABG x2 (DEBORAH-LAD, SVG-PDA). - HYSTERECTOMY HX - IANDD PERIANAL ABSCESS - PAST SURGICAL HISTORY OF left breast nodule removed - PAST SURGICAL HISTORY OF skin lesions removed FAMILY HISTORY Problem Relation Age of Onset - Hypertension Mother living at age 93, HTN - Heart Failure Mother [place] - Cancer Father age 71, lung cancer Social History Marital status: Spouse name: Years of education: Number of children: Social History Main Topics Smoking status: Former Smoker Packs/day: 2.50 Years: 43.00 Types: Cigarettes Start date: 1961 Quit date: 07/07/2004 Smokeless tobacco: Never Used Alcohol use: No Drug use: No Other Topics Concern Caffeine Concern Yes Comment:coffee 1 cup daily Special Diet No Comment:Regular Exercise No Comment:no unable, due to SOB x several months. Social History Narrative Patient and daughter live together. REVIEW OF SYSTEMS: General: No chills, fever, weight loss, night sweats. Respiratory: No productive cough. Cardiac: As noted above. GI: No melena. : No dysuria. Musculoskeletal: No myalgias. PHYSICAL EXAMINATION: S/he is alert and in no distress. VITAL SIGNS: BP 106/62 Pulse 67 Wt 199 lb 9.6 oz (90.5kg) SHEENT: Skin is warm and dry. No xanthelasmas appreciated. Pharynx is benign. There is no oral cyanosis. Neck: supple. No adenopathy or thyroid enlargement. Chest: Few scattered rhonchi. There is no evidence of pleural effusion.. Trachea is midline. Air entry is equal. There is no chest wall tenderness. Cardiac: Regular rhythm. S1 and S2 are normal. PMI is nondisplaced. Area is a soft systolic ejection. No click is heard. Carotids are brisk without bruits. JVP is less than 10 cm. Abdomen: Soft and nontender. There are no pulsatile masses or bruits. No liver enlargement. Bowel sounds are active. Extremities: 1 plus chronic, brawny edema. Pulses are diminished but symmetrical. No clubbing or cyanosis. No femoral bruits. Neurologic: Grossly normal motor and sensory. S/he is alert and oriented x4. Extensive records were reviewed. Troponin was mildly elevated on most recent admission. Angiography showed no high-grade disease. Plavix was temporarily started but then discontinued. Eliquis was restarted. Left ventricular function was well-preserved. There is moderate pulmonary hypertension, although this had improved. Electronically Signed: Aren Cardona MD May 24, 2018 2:11 PM CC:Jameson Kamara MD CNOV Observed: 05/24/2018 Status: COMPLETED Source: [place] 1:30 PM [facility] REPOSITORY Office Visit ([facility]) LUZ BACA ([id number]) 1940 F Date Time Provider Department 05/24/18 1:30 PM AREN CARDONA During your visit today, we recorded the following information about you: Pulse Blood pressure Weight 67/minute 106/62 90.5 kg Aren Cardona MD 05/24/2018 5:33 PM Signed PERTINENT CARDIAC HISTORY ASHD - CABGx3 2003, PCIx6 RCA 2013, PCIx3 2014 HCM - septal myectomy 2003 HTN DM HL MARLA - unable to tolerate CPAP PAF CRF - on dialysis CHF - systolic, DAMION-I/ARB intolerance (CRF) Cardiomyopathy - ischemic, ICD 2015, revised 11/2016, beta lenny intolerance ADHERENCE TO GUIDELINES DAMION-I or ARB for HF with prior LVEF<40 (NQF 0081) - CRF ASA or Plavix for ASHD (NQF 0067) - restart Beta lenny for ASHD with prior NE or prior LVEF<40 (NQF 0070) - COPD Beta lenny for HF with prior LVEF<40 (NQF 0083) - COPD DAMION-I or ARB for ASHD with DM or prior LVEF<40 (NQF 0066) - CRF Statin therapy for ASHD or FHL or DM - met BMI documented and plan if >25 (NQF 0421) - lifestyle recommendation form Tobacco use screening and referral (NQF 0028) - lifestyle recommendation form Recommendation for whole food, plant based diet - lifestyle recommendation form CLINICAL IMPRESSION/PLAN: Luz Baca is clinically stable with respect to her heart failure. Global left ventriclular function is preserved. I have recommended that she increase isosorbide to 90 milligrams daily and use nitroglycerin liberally. She may benefit from the addition of a calcium lenny or possibly ranolazine. For the time being, she will continue on amiodarone. We will check basic profile, TSH and ALT. She has an appointment with electrophysiology later this year and a decision can be made at that time whether to continue amiodarone. I will see her in 4 months. I've asked her to contact me if there is any increase in chest pain or shortness of breath. She was reminded that her care is potentially being compromised by the number of physicians that she is seeing. She has gone to several hospitals recently. Written and verbal health teaching given to patient, patient verbalizes understanding and agrees with treatment plan. DIAGNOSIS FOR VISIT: ASHD CHF HISTORY OF PRESENT ILLNESS Luz Baca returns for follow follow-up visit. Since her last visit, she has been hospitalized at least twice. She was started on amiodarone while hospitalized in [place]. She went to rehabilitation facility for a while. She was hospitalized at [facility] with decompensated heart failure. She was taken off her DAMION inhibitor and started on hydralazine and nitrates. She underwent angiography as her troponin was elevated. No significant obstructive disease was identified. She continues to have intermittent chest discomfort. She has been seen in the emergency department as recently as last week. CT scan reportedly showed no evidence of pulmonary embolus. She reports that nitroglycerin helps her discomfort, but does not last. She is currently on dialysis and volume overload has not been an issue recently. She denies syncope, TIAs, amaurosis or claudication. She is occasionally aware of an irregular heart rhythm, lasting seconds. ALLERGIES: ALLERGIES Allergen Reactions - Aspirin Other: See Comments Patient states that she bled out every orifice, sts not allowed to take it at all. Patient states she was bleeding out of nose and mouth after one dose. - Bactrim [Sulfametho* Other: See Comments My throat swells up. - Latex Rash, Itching Itching and welts. No wheezing or shortness of breath. - Penicillins Rash, Itching Tolerated ceftriaxone during 11/2017 admission and cefepime during 12/2017 admission - Tetracycline Rash, GI Upset Emesis and diarrhea. - Atorvastatin Rash - Codeine Other: See Comments Numbness - Dilaudid [Hydromorp* Mental Status Change - Meperidine - Pentazocine - Pioglitazone Unknown - Propoxyphene CURRENT OUTPATIENT MEDICATIONS: isosorbide mononitrate ER (IMDUR) 60 mg 24 hr tablet Take 1 tablet by mouth once daily. pantoprazole DR (PROTONIX) 40 mg tablet Take 1 tablet by mouth once daily. insulin aspart U-100 (NOVOLOG FLEXPEN U-100 INSULIN) 100 unit/mL inpn Using Sliding Scale: 150-209 1 unit, 210-269 2 units, 270-329 3 units, 330-389 4 units, 390-449 5 units simvastatin (ZOCOR) 20 mg tablet Take 2 tablets by mouth every morning. senna (SENNA) 8.6 mg tab Take 8.6 mg by mouth once daily. traZODone (DESYREL) 50 mg tablet Take 50 mg by mouth daily at bedtime. traMADol (ULTRAM) 50 mg tablet Take 50 mg by mouth every 8 hours as needed. ondansetron (ZOFRAN) 4 mg tablet Take 4 mg by mouth every 8 hours as needed. ipratropium-albuterol (DUONEB) 0.5 mg-3 mg(2.5 mg base)/3 mL nebu Inhale 3 mL as instructed every 4 hours while awake. And prn for wheezing/shortness of breath. amiodarone (PACERONE) 200 mg tablet Take 1 tablet by mouth once daily. carvedilol (COREG) 3.125 mg tablet Take 1 tablet by mouth twice daily with meals. insulin glargine (LANTUS SOLOSTAR U-100 INSULIN) 100 unit/mL (3 mL) inpn Inject 50 Units subcutaneously every morning. bacitracin (ANTIBIOTIC, BACITRACIN ZINC,) ointment Apply 1 application to affected area twice daily. nystatin (NYSTOP) powder Apply 1 application to affected area three times daily. apixaban (ELIQUIS) 5 mg tab(s) Take 5 mg by mouth twice daily. nitroglycerin sublingual (NITROQUICK) 0.4 mg SL tablet Dissolve 1 tablet under the tongue every 5 minutes as needed. OXYGEN, HOME THERAPY, Inhale 2.5 L/min as instructed continuous. 3 L/min when leaves home. HYDROcodone-acetaminophen (NORCO) 5-325 mg per tablet Take 1 tablet by mouth every 8 hours as needed. budesonide (PULMICORT) 0.5 mg/2 mL nebulizer solution Use 2 mL via nebulizer once daily. INHALE 2 ML BY NEBULIZER OVER 5-15 MINUTES EVERY 12 HOURS. insulin glargine (LANTUS SOLOSTAR U-100 INSULIN) 100 unit/mL (3 mL) inpn Inject 36 Units subcutaneously daily at bedtime. guaiFENesin-dextromethorphan (ROBITUSSIN DM) 100-10 mg/5 mL syrup Take 5-10 mL by mouth every 6 hours as needed for Cough. PAST MEDICAL HISTORY Diagnosis Date - Arthritis - Atrial fibrillation (HCC) - CAD (coronary artery disease) stents x9, defibrillator, CABG. Seeing Dr. Cardona - Cardiac defibrillator in place - Cardiomegaly - Carotid artery disease ([facility]) left - Chronic kidney disease (CKD) stage G3b/A2, moderately decreased glomerular filtration rate (GFR) between 30-44 mL/min/1.73 square meter and albuminuria creatinine ratio between 30-299 mg/g ([facility]) Dr. Martin - COPD (chronic obstructive pulmonary disease) ([facility]) Dr. Cruz - Depression - Diabetes ([facility]) - Diabetic neuropathy ([facility]) - Edema - GERD (gastroesophageal reflux disease) - Gout with hyperuricemia - HH (hiatus hernia) - HOCM (hypertrophic obstructive cardiomyopathy) ([facility]) S/P Septal Myectomy in 2003. Now with LVEF 50% and mod/severe pulm HTN. - HTN (hypertension) - Hyperlipidemia - Morbid obesity with BMI of 40.0-44.9, adult ([facility]) - Sleep apnea 2011 not on CPAP, unable to tolerate mask 02/2017 - SVT (supraventricular tachycardia) ([facility]) NSVT and questionable VT in 2003 post op PAST SURGICAL HISTORY Procedure Laterality Date - CHOLECYSTECTOMY HX - HEART SURGERY HX 07/18/2004 Septal myectomy and CABG x2 (DEBORAH-LAD, SVG-PDA). - HYSTERECTOMY HX - IANDD PERIANAL ABSCESS - PAST SURGICAL HISTORY OF left breast nodule removed - PAST SURGICAL HISTORY OF skin lesions removed FAMILY HISTORY Problem Relation Age of Onset - Hypertension Mother living at age 93, HTN - Heart Failure Mother [place] - Cancer Father age 71, lung cancer Social History Marital status: Spouse name: Years of education: Number of children: Social History Main Topics Smoking status: Former Smoker Packs/day: 2.50 Years: 43.00 Types: Cigarettes Start date: 1961 Quit date: 07/07/2004 Smokeless tobacco: Never Used Alcohol use: No Drug use: No Other Topics Concern Caffeine Concern Yes Comment:coffee 1 cup daily Special Diet No Comment:Regular Exercise No Comment:no unable, due to SOB x several months. Social History Narrative Patient and daughter live together. REVIEW OF SYSTEMS: General: No chills, fever, weight loss, night sweats. Respiratory: No productive cough. Cardiac: As noted above. GI: No melena. : No dysuria. Musculoskeletal: No myalgias. PHYSICAL EXAMINATION: S/he is alert and in no distress. VITAL SIGNS: BP 106/62 Pulse 67 Wt 199 lb 9.6 oz (90.5kg) SHEENT: Skin is warm and dry. No xanthelasmas appreciated. Pharynx is benign. There is no oral cyanosis. Neck: supple. No adenopathy or thyroid enlargement. Chest: Few scattered rhonchi. There is no evidence of pleural effusion.. Trachea is midline. Air entry is equal. There is no chest wall tenderness. Cardiac: Regular rhythm. S1 and S2 are normal. PMI is nondisplaced. Area is a soft systolic ejection. No click is heard. Carotids are brisk without bruits. JVP is less than 10 cm. Abdomen: Soft and nontender. There are no pulsatile masses or bruits. No liver enlargement. Bowel sounds are active. Extremities: 1 plus chronic, brawny edema. Pulses are diminished but symmetrical. No clubbing or cyanosis. No femoral bruits. Neurologic: Grossly normal motor and sensory. S/he is alert and oriented x4. Extensive records were reviewed. Troponin was mildly elevated on most recent admission. Angiography showed no high-grade disease. Plavix was temporarily started but then discontinued. Eliquis was restarted. Left ventricular function was well-preserved. There is moderate pulmonary hypertension, although this had improved. Electronically Signed: Aren Cardona MD May 24, 2018 2:11 PM CC:MD Aren Samuels MD 05/24/2018 2:12 PM Signed LIFESTYLE CHANGE A healthy lifestyle is the most important component of your overall treatment plan. Please give serious thought to the following areas and commit to making shelter changes. EAT A WHOLE FOOD, PLANT BASED DIET The nutrition your body gets is more important than the medicine you take. What matters most is the overall way you eat. We encourage you to minimize the use of animal products (which include dairy and all meats except fatty fish) and use whole, unprocessed plant foods to provide your protein, vitamins and other nutrients. We have a lot of information to share with you on this topic. This is not a diet. It is a way of life that you will keep with you. EXERCISE REGULARLY It is not important to spend hours in the gym, lifting weights and perspiring heavily. A total of 2-3 hours per week of aerobic (causing you to be moderately short of breath) exercise is sufficient to improve your health. Talk to us before you begin a new exercise program, if you have heart disease or experience shortness of breath or chest pain. REDUCE STRESS Chronic emotional and physical stress leads to disease. Ways of reducing stress include meditation, visualization, prayer, yoga and other forms of relaxation therapy. Consistency is the aguilera. Find a technique that works for you and do it every day. CULTIVATE RELATIONSHIPS Loneliness and isolation have a major negative impact on health. Seek out others who can love, care for and nurture you. Avoid hurtful relationships. MAINTAIN IDEAL BODY WEIGHT The best way to do this is to do all the things above. Our bodies naturally find the right weight if we keep moving and feed ourselves the right food. If your BMI is greater than 25, we strongly recommend a referral to a weight management program. Please speak to us or your family physician about available programs. AVOID NICOTINE IN ALL FORMS This includes all tobacco products, whether chewed, smoked, vaped, or rubbed on the skin. Smoking cessation programs, which can make use of tobacco substitutes, medications to suppress cravings and behavior management, are available. Please contact your family physician about programs in your area. Referring Provider: AREN CARDONA [[id number]] Allergies As of Date: 05/24/2018 Noted Allergy Reaction ASPIRIN 01/20/2018 14 - Other: See Comments Comments: Patient states that she bled out every orifice, sts not allowed to take it at all. Patient states she was bleeding out of nose and mouth after one dose. BACTRIM (SULFAMETHOXAZOLE-TRIMETH*05/17/2017 14 - Other: See Comments Comments: My throat swells up. LATEX 05/17/2017 2 - Rash 9 - Itching Comments: Itching and welts. No wheezing or shortness of breath. PENICILLINS 07/14/2004 2 - Rash 9 - Itching Comments: Tolerated ceftriaxone during 11/2017 admission and cefepime during 12/2017 admission TETRACYCLINE 09/29/2010 2 - Rash 8 - GI Upset Comments: Emesis and diarrhea. 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 Page LPN - Fully Assessed Reason for Visit: Established Patient [175] Cmt: 4 mo f/u chf/ ashd Primary Visit Diagnosis:ASHD (arteriosclerotic heart disease) [I25.10] Other Visit Diagnoses:Essential hypertension [I10] Coronary artery disease, angina presence unspecified, unspecified vessel or lesion type, unspecified whether rincon or transplanted heart [I25.10] Order(s):isosorbide mononitrate ER (IMDUR) 60 mg 24 hr tabletTake 1.5 tablets by mouth once daily.Disp: 30 tabletRfl: 5 ALT/SGPT [SQALT] Order #: [id number] FUTURE TSH BLD [SQTSH] Order #: [id number] FUTURE Prescriptions as of 05/24/2018 Sig: ISOSORBIDE MONONITRATE ER 60 * Take 1.5 tablets by mouth onc* PANTOPRAZOLE 40 MG TABLET,DEL* Take 1 tablet by mouth once d* INSULIN ASPART U-100 100 UNI* Using Sliding Scale: 150-209* SIMVASTATIN 20 MG TABLET Take 2 tablets by mouth every* SENNOSIDES 8.6 MG TABLET Take 8.6 mg by mouth once carlos* TRAZODONE 50 MG TABLET Take 50 mg by mouth daily at * TRAMADOL 50 MG TABLET Take 50 mg by mouth every 8 h* ONDANSETRON HCL 4 MG TABLET Take 4 mg by mouth every 8 ho* IPRATROPIUM-ALBUTEROL 0.5 MG-* Inhale 3 mL as instructed leanne* AMIODARONE 200 MG TABLET Take 1 tablet by mouth once d* CARVEDILOL 3.125 MG TABLET Take 1 tablet by mouth twice * INSULIN GLARGINE (U-100) 100 * Inject 50 Units subcutaneousl* BACITRACIN ZINC 500 UNIT/GRAM* Apply 1 application to affect* NYSTATIN 100,000 UNIT/GRAM TO* Apply 1 application to affect* APIXABAN 5 MG TABLET Take 5 mg by mouth twice janeth* NITROGLYCERIN 0.4 MG SUBLINGU* Dissolve 1 tablet under the t* OXYGEN (HOME THERAPY) Inhale 2.5 L/min as instructe* HYDROCODONE 5 MG-ACETAMINOPHE* Take 1 tablet by mouth every * BUDESONIDE 0.5 MG/2 ML SUSPEN* Use 2 mL via nebulizer once d* INSULIN GLARGINE (U-100) 100 * Inject 36 Units subcutaneousl* DEXTROMETHORPHAN-GUAIFENESIN * Take 5-10 mL by mouth every 6* Problem List As Of Date 05/24/2018 Noted Resolved HOCM (hypertrophic obstructive cardiomyopathy) * 01/23/2018 Priority: I More... SVT (supraventricular tachycardia) (HCC) [I47.1] 01/21/2018 More... Carotid artery disease (HCC) [I77.9] 01/22/2018 CAD (coronary artery disease) [I25.10] Priority: E More... Hypertension [I10] Priority: L More... Hyperlipidemia [E78.5] Pneumonia [J18.9] 10/27/2017 More... COPD (chronic obstructive pulmonary disease) (H* Priority: F More... Sleep apnea [G47.30] Priority: I More... HH (hiatus hernia) [K44.9] 01/21/2018 GERD (gastroesophageal reflux disease) [K21.9] Priority: K More... More... Arthritis [M19.90] Numbness and tingling of right leg [R20.0, R20.* 01/21/2018 Depression [F32.9] Atrial fibrillation (HCC) [I48.91] INVALID FOR* Priority: C More... Uncontrolled type 2 diabetes mellitus with stag*INVALID FOR* Priority: H More... More... More... Heart failure, systolic, acute (HCC) [I50.21] INVALID FOR*01/21/2018 More... Obesity [E66.09] INVALID FOR* Priority: M More... Gout [M10.9] Pacemaker [Z95.0] Priority: D More... Chronic combined systolic and diastolic CHF (co*INVALID FOR* Priority: B More... Elevated troponin [R74.8] INVALID FOR*01/22/2018 Priority: G More... Pulmonary hypertension (HCC) [I27.20] INVALID FOR* Oral thrush [B37.0] INVALID FOR*01/21/2018 Hyponatremia [E87.1] INVALID FOR* Priority: J More... Hyperkalemia [E87.5] INVALID FOR*01/22/2018 Priority: J Chest pain in adult [R07.9] INVALID FOR*02/12/2018 Priority: A More... Acute renal failure superimposed on stage 3 chr*INVALID FOR* Priority: A More... Obesity, Class II, BMI 35-39.9 [E66.9] INVALID FOR* Other instructions from your clinician: LIFESTYLE CHANGE A healthy lifestyle is the most important component of your overall treatment plan. Please give serious thought to the following areas and commit to making medical terminologist changes. EAT A WHOLE FOOD, PLANT BASED DIET The nutrition your body gets is more important than the medicine you take. What matters most is the overall way you eat. We encourage you to minimize the use of animal products (which include dairy and all meats except fatty fish) and use whole, unprocessed plant foods to provide your protein, vitamins and other nutrients. We have a lot of information to share with you on this topic. This is not a diet. It is a way of life that you will keep with you. EXERCISE REGULARLY It is not important to spend hours in the gym, lifting weights and perspiring heavily. A total of 2-3 hours per week of aerobic (causing you to be moderately short of breath) exercise is sufficient to improve your health. Talk to us before you begin a new exercise program, if you have heart disease or experience shortness of breath or chest pain. REDUCE STRESS Chronic emotional and physical stress leads to disease. Ways of reducing stress include meditation, visualization, prayer, yoga and other forms of relaxation therapy. Consistency is the aguilera. Find a technique that works for you and do it every day. CULTIVATE RELATIONSHIPS Loneliness and isolation have a major negative impact on health. Seek out others who can love, care for and nurture you. Avoid hurtful relationships. MAINTAIN IDEAL BODY WEIGHT The best way to do this is to do all the things above. Our bodies naturally find the right weight if we keep moving and feed ourselves the right food. If your BMI is greater than 25, we strongly recommend a referral to a weight management program. Please speak to us or your family physician about available programs. AVOID NICOTINE IN ALL FORMS This includes all tobacco products, whether chewed, smoked, vaped, or rubbed on the skin. Smoking cessation programs, which can make use of tobacco substitutes, medications to suppress cravings and behavior management, are available. Please contact your family physician about programs in your area. Prescriptions ordered this encounter Disp Refills Start End ISOSORBIDE MONONITRATE ER 60 MG TABL* 30 t* 5 05/24/2018 Class: Med Update Route: ORAL Sig: Take 1.5 tablets by mouth once daily. Medications Discontinued During This Encounter clopidogrel (PLAVIX) 75 mg tablet 30 t* 11 05/17/2018 05/24/2018 Class: Med Update Route: ORAL Sig: Take 1 tablet by mouth once daily. Disc: Reason for discontinue is not on file. isosorbide mononitrate ER (IMDUR) 60* 30 t* 5 05/19/2018 05/24/2018 Class: Med Update Route: ORAL Sig: Take 1 tablet by mouth once daily. Disc: Reason for discontinue is not on file. Encounter Status:Closed by AREN CARDONA MD on 05/24/18 CNPTOUTRRADHA Observed: 05/24/2018 Status: COMPLETED Source: [place] 12:00 AM [facility] REPOSITORY Patient Outreach (FAMPST) LUZ BACA ([id number]) 1940 F Date Time Provider Department 05/24/18 JAMESON KAMARA) [facility] During your visit today, we recorded the following information about you: Allergies As of Date: 05/24/2018 Noted Allergy Reaction ASPIRIN 01/20/2018 14 - Other: See Comments Comments: Patient states that she bled out every orifice, sts not allowed to take it at all. Patient states she was bleeding out of nose and mouth after one dose. BACTRIM (SULFAMETHOXAZOLE-TRIMETH*05/17/2017 14 - Other: See Comments Comments: My throat swells up. LATEX 05/17/2017 2 - Rash 9 - Itching Comments: Itching and welts. No wheezing or shortness of breath. PENICILLINS 07/14/2004 2 - Rash 9 - Itching Comments: Tolerated ceftriaxone during 11/2017 admission and cefepime during 12/2017 admission TETRACYCLINE 09/29/2010 2 - Rash 8 - GI Upset Comments: Emesis and diarrhea. 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 [employer]ANE - Fully Assessed Visit Diagnosis:Medication management [Z79.899] Order(s):ALBUMIN/CREAT RATIO RND UR [SQUACR] Order #: [id number] FUTURE LIPID PANEL BASIC [SQLIPB] Order #: [id number] FUTURE Prescriptions as of 05/24/2018 Sig: X ISOSORBIDE MONONITRATE ER 60 * Take 1.5 tablets by mouth onc* PANTOPRAZOLE 40 MG TABLET,DEL* Take 1 tablet by mouth once d* X INSULIN ASPART U-100 100 UNI* Using Sliding Scale: 150-209* X SIMVASTATIN 20 MG TABLET Take 2 tablets by mouth every* SENNOSIDES 8.6 MG TABLET Take 8.6 mg by mouth once carlos* ONDANSETRON HCL 4 MG TABLET Take 4 mg by mouth every 8 ho* IPRATROPIUM-ALBUTEROL 0.5 MG-* Inhale 3 mL as instructed leanne* BUDESONIDE 0.5 MG/2 ML SUSPEN* Use 2 mL via nebulizer once d* X HYDROCODONE 5 MG-ACETAMINOPHE* Take 1 tablet by mouth every * X TRAZODONE 50 MG TABLET Take 50 mg by mouth daily at * X TRAMADOL 50 MG TABLET Take 50 mg by mouth every 8 h* X AMIODARONE 200 MG TABLET Take 1 tablet by mouth once d* X CARVEDILOL 3.125 MG TABLET Take 1 tablet by mouth twice * X INSULIN GLARGINE (U-100) 100 * Inject 50 Units subcutaneousl* X INSULIN GLARGINE (U-100) 100 * Inject 36 Units subcutaneousl* NYSTATIN 100,000 UNIT/GRAM TO* Apply 1 application to affect* X BACITRACIN ZINC 500 UNIT/GRAM* Apply 1 application to affect* X APIXABAN 5 MG TABLET Take 5 mg by mouth twice janeth* DEXTROMETHORPHAN-GUAIFENESIN * Take 5-10 mL by mouth every 6* NITROGLYCERIN 0.4 MG SUBLINGU* Dissolve 1 tablet under the t* OXYGEN (HOME THERAPY) Inhale 2.5 L/min as instructe* Problem List As Of Date 05/24/2018 Noted Resolved HOCM (hypertrophic obstructive cardiomyopathy) * 01/23/2018 Priority: I More... SVT (supraventricular tachycardia) (HCC) [I47.1] 01/21/2018 More... Carotid artery disease (HCC) [I77.9] 01/22/2018 CAD (coronary artery disease) [I25.10] Priority: E More... Hypertension [I10] Priority: L More... Hyperlipidemia [E78.5] Pneumonia [J18.9] 10/27/2017 More... COPD (chronic obstructive pulmonary disease) (H* Priority: F More... Sleep apnea [G47.30] Priority: I More... HH (hiatus hernia) [K44.9] 01/21/2018 GERD (gastroesophageal reflux disease) [K21.9] Priority: K More... More... Arthritis [M19.90] Numbness and tingling of right leg [R20.0, R20.* 01/21/2018 Depression [F32.9] Atrial fibrillation (HCC) [I48.91] INVALID FOR* Priority: C More... Uncontrolled type 2 diabetes mellitus with stag*INVALID FOR* Priority: H More... More... More... Heart failure, systolic, acute (HCC) [I50.21] INVALID FOR*01/21/2018 More... Obesity [E66.09] INVALID FOR* Priority: M More... Gout [M10.9] Pacemaker [Z95.0] Priority: D More... Chronic combined systolic and diastolic CHF (co*INVALID FOR* Priority: B More... Elevated troponin [R74.8] INVALID FOR*01/22/2018 Priority: G More... Pulmonary hypertension (HCC) [I27.20] INVALID FOR* Oral thrush [B37.0] INVALID FOR*01/21/2018 Hyponatremia [E87.1] INVALID FOR* Priority: J More... Hyperkalemia [E87.5] INVALID FOR*01/22/2018 Priority: J Chest pain in adult [R07.9] INVALID FOR*02/12/2018 Priority: A More... Acute renal failure superimposed on stage 3 chr*INVALID FOR* Priority: A More... Obesity, Class II, BMI 35-39.9 [E66.9] INVALID FOR* Encounter Status:Closed by EPIC, PRODUSER on 07/29/18 12 LEAD ELECTROCARDIOGRAM Observed: 05/23/2018 Status: F Source: [place] 2:26 PM [facility] REPOSITORY [facility] Cardiovascular Services [address] [place] [address] 12 Lead EKG 05/19/18 1207 MR#: [id number] Acct: [id number] Name: LUZ BACA Rep #: [id number] : 1940 77 From: Ayde Butt MD Attending Dr: Status: DEP ER Ordering Dr: Mandy Grajeda MD Date: 05/19/18 Location: ED Sex: F C Admitted: Test Reason : SOB Blood Pressure : / mmHG Vent. Rate : 060 BPM Atrial Rate : 059 BPM P-R Int : 000 ms QRS Dur : 222 ms QT Int : 574 ms P-R-T Axes : 000 -86 096 degrees QTc Int : 574 ms Ventricular-paced rhythm Abnormal ECG Confirmed by KEARA COLLIER, AYDE ([id number]), continuity editor JASON ALDANA ([id number]) on 05/23/2018 2:25:58 PM Referred By: RAMANA Confirmed By:AYDE BUTT MD 05/23/18 1426 Date Ayde Butt MD CC: Mook Kamara MD; Mandy Grajeda MD Signed PROGRESS Observed: 05/23/2018 Status: COMPLETED Source: [place] 11:18 AM [facility] REPOSITORY HNO ID: [id number] Author: Jameson Adams) Koffi Service: (none) Author Type: Physician Type: Progress Notes Filed: 05/23/2018 11:18 AM Note Text: A1C placed as ordered. Follow up with Dr. Cardona as scheduled tomorrow. PROGRESS Observed: 05/23/2018 Status: COMPLETED Source: [place] 10:21 AM [facility] REPOSITORY HNO ID: [id number] Author: Remi OsheaRn) Brent Service: (none) Author Type: Registered Nurse Type: Progress Notes Filed: 05/23/2018 11:08 AM Note Text: [facility] [facility] EMERGENCY DEPARTMENT FOLLOW UP INITIAL CONTACT Provider Action/FYI: Pt continuing to have intermittent chest pain, less frequent and less painful than before ER Appt with Dr. Cardona on 05/24 PCC overrode Care Gap of No ACEI or ARB because Dr. Cardona documented pt not on ACEI or ARB due to CRF Dr. Kamara, pt has not had a A1C in past year ORDER PENDED IF YOU APPROVE Initial contact with patient post discharge, spoke to patient. Patient identified by name and date : YES SUMMARY: -Patient discharged from [facility] ED on 05/19. -Follow up appointment on 05/[address] Cardona, cardiology. -Medication review done no. -Presented with: Chest pain CONCERNS: Patient continues to have the same chest pain intermittently. Not as frequently as before ER visit and not as painful NEW MEDICATIONS: None MEDS HELD/DISCONTINUED: None BRIEF ED COURSE: Patient is a 77 F with chest pain for the past 4 days. She describes a sudden sharp pain with shortness of breath. She was admitted end of April with chest pain and had a heart cath. She is back to her PCPs office today for follow-up and was sent to the ER. Physical Examination: Vital signs remarkable for pulse ox of 88% on 3 L nasal cannula in triage. The time of my examination her O2 sat is 100% on 2 1/2 L of nasal cannula which is her baseline. No acute distress. She does have anterior chest wall tenderness. Lower extreme examination reveals chronic venous skin changes. No significant edema is noted. EKG is ventricular paced at 60. This is unchanged when compared to prior study. Chest x-ray shows stable pleural parenchymal changes at the left lung base. CBC was normal white count. Hemoglobin is 11.2 and platelet count is 124,000. This appears consistent with prior values. Chemistry studies are significant for creatinine of 3.31. LFTs and lipase are normal. INR is 1.7. Troponin is 0.672. This is consistent with her recent hospital admission when she had the heart cath that was unremarkable. I think this is chronically elevated secondary to her chronic renal failure. Pt received morphine and Zofran. On repeat evaluation she is resting comfortably. Primary care physician was concerned for PE and patient was sent for a CTA. She has [place] and Ultram that she will take as needed. She is to follow with her primary care physician. CTA CHEST FINDINGS: Epigastric ventral hernia containing inflamed fat and minimal fluid. There are coronary arterial calcifications. Multiple median sternotomy wires noted consistent for cardiac surgery. Right internal jugular vascular line. The tip is in the superior vena caval - atrial junction. Heart is enlarged. There are calcifications of the coronary arteries. There is no pneumothorax. Chronic appearing left pleural effusion. Left calcified pleural plaques. Right upper lobe calcified granuloma. There is diffuse interlobular septal thickening. Left lower lobe scarring. Normal mediastinum. Normal hilar regions. Normal pulmonary arteries. Atherosclerotic calcification of aortic arch w/ tortuosity and elongation of aortic arch and descending thoracic aorta. There are multi-level degenerative changes of the thoracic spine. There are degenerative changes of the shoulders. There is a left sided pacemaker battery pack. Remi Kennedy RN [facility] Observed: 05/23/2018 Status: COMPLETED Source: [place] 12:00 AM [facility] REPOSITORY Patient Outreach (FAMPWS) LUZ BACA ([id number]) 1940 F Date Time Provider Department 05/23/18 REMI KENNEDY (RN) FAMPWS During your visit today, we recorded the following information about you: Remi Kennedy RN 05/23/2018 11:08 AM Addendum [facility] EMERG[facility]Y DEPARTMENT FOLLOW UP INITIAL CONTACT Provider Action/FYI: Pt continuing to have intermittent chest pain, less frequent and less painful than before ER Appt with Dr. Cardona on 05/24 PCC overrode Care Gap of No ACEI or ARB because Dr. Cardona documented pt not on ACEI or ARB due to CRF Dr. Kamara, pt has not had a A1C in past year ORDER PENDED IF YOU APPROVE Initial contact with patient post discharge, spoke to patient. Patient identified by name and date : YES SUMMARY: -Patient discharged from [facility] ED on 05/19. -Follow up appointment on 05/[address] Cardona, cardiology. -Medication review done no. -Presented with: Chest pain CONCERNS: Patient continues to have the same chest pain intermittently. Not as frequently as before ER visit and not as painful NEW MEDICATIONS: None MEDS HELD/DISCONTINUED: None BRIEF ED COURSE: Patient is a 77 F with chest pain for the past 4 days. She describes a sudden sharp pain with shortness of breath. She was admitted end of April with chest pain and had a heart cath. She is back to her PCPs office today for follow-up and was sent to the ER. Physical Examination: Vital signs remarkable for pulse ox of 88% on 3 L nasal cannula in triage. The time of my examination her O2 sat is 100% on 2 1/2 L of nasal cannula which is her baseline. No acute distress. She does have anterior chest wall tenderness. Lower extreme examination reveals chronic venous skin changes. No significant edema is noted. EKG is ventricular paced at 60. This is unchanged when compared to prior study. Chest x-ray shows stable pleural parenchymal changes at the left lung base. CBC was normal white count. Hemoglobin is 11.2 and platelet count is 124,000. This appears consistent with prior values. Chemistry studies are significant for creatinine of 3.31. LFTs and lipase are normal. INR is 1.7. Troponin is 0.672. This is consistent with her recent hospital admission when she had the heart cath that was unremarkable. I think this is chronically elevated secondary to her chronic renal failure. Pt received morphine and Zofran. On repeat evaluation she is resting comfortably. Primary care physician was concerned for PE and patient was sent for a CTA. She has [place] and Ultram that she will take as needed. She is to follow with her primary care physician. CTA CHEST FINDINGS: Epigastric ventral hernia containing inflamed fat and minimal fluid. There are coronary arterial calcifications. Multiple median sternotomy wires noted consistent for cardiac surgery. Right internal jugular vascular line. The tip is in the superior vena caval - atrial junction. Heart is enlarged. There are calcifications of the coronary arteries. There is no pneumothorax. Chronic appearing left pleural effusion. Left calcified pleural plaques. Right upper lobe calcified granuloma. There is diffuse interlobular septal thickening. Left lower lobe scarring. Normal mediastinum. Normal hilar regions. Normal pulmonary arteries. Atherosclerotic calcification of aortic arch w/ tortuosity and elongation of aortic arch and descending thoracic aorta. There are multi-level degenerative changes of the thoracic spine. There are degenerative changes of the shoulders. There is a left sided pacemaker battery pack. ALLYSON Buck MD 05/23/2018 11:18 AM Signed A1C placed as ordered. Follow up with Dr. Cardona as scheduled tomorrow. Allergies As of Date: 05/23/2018 Noted Allergy Reaction ASPIRIN 01/20/2018 14 - Other: See Comments Comments: Patient states that she bled out every orifice, sts not allowed to take it at all. Patient states she was bleeding out of nose and mouth after one dose. BACTRIM (SULFAMETHOXAZOLE-TRIMETH*05/17/2017 14 - Other: See Comments Comments: My throat swells up. LATEX 05/17/2017 2 - Rash 9 - Itching Comments: Itching and welts. No wheezing or shortness of breath. PENICILLINS 07/14/2004 2 - Rash 9 - Itching Comments: Tolerated ceftriaxone during 11/2017 admission and cefepime during 12/2017 admission TETRACYCLINE 09/29/2010 2 - Rash 8 - GI Upset Comments: Emesis and diarrhea. 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 3 chronic kidney disease, with long- term current use of insulin (HCC) [E11.22, E11.65, N18.3, Z79.4] Order(s):HGB A1C [WGVWL4N] Order #: [id number] FUTURE Prescriptions as of 05/23/2018 Sig: ISOSORBIDE MONONITRATE ER 60 * Take 1 tablet by mouth once d* PANTOPRAZOLE 40 MG TABLET,DEL* Take 1 tablet by mouth once d* INSULIN ASPART U-100 100 UNI* Using Sliding Scale: 150-209* SIMVASTATIN 20 MG TABLET Take 2 tablets by mouth every* CLOPIDOGREL 75 MG TABLET Take 1 tablet by mouth once d* SENNOSIDES 8.6 MG TABLET Take 8.6 mg by mouth once carlos* HYDROCODONE 5 MG-ACETAMINOPHE* Take 1 tablet by mouth every * TRAZODONE 50 MG TABLET Take 50 mg by mouth daily at * TRAMADOL 50 MG TABLET Take 50 mg by mouth every 8 h* ONDANSETRON HCL 4 MG TABLET Take 4 mg by mouth every 8 ho* IPRATROPIUM-ALBUTEROL 0.5 MG-* Inhale 3 mL as instructed leanne* AMIODARONE 200 MG TABLET Take 1 tablet by mouth once d* CARVEDILOL 3.125 MG TABLET Take 1 tablet by mouth twice * INSULIN GLARGINE (U-100) 100 * Inject 50 Units subcutaneousl* INSULIN GLARGINE (U-100) 100 * Inject 36 Units subcutaneousl* BACITRACIN ZINC 500 UNIT/GRAM* Apply 1 application to affect* NYSTATIN 100,000 UNIT/GRAM TO* Apply 1 application to affect* APIXABAN 5 MG TABLET Take 5 mg by mouth twice janeth* DEXTROMETHORPHAN-GUAIFENESIN * Take 5-10 mL by mouth every 6* NITROGLYCERIN 0.4 MG SUBLINGU* Dissolve 1 tablet under the t* OXYGEN (HOME THERAPY) Inhale 2.5 L/min as instructe* BUDESONIDE 0.5 MG/2 ML SUSPEN* Use 2 mL via nebulizer once d* Problem List As Of Date 05/23/2018 Noted Resolved HOCM (hypertrophic obstructive cardiomyopathy) * 01/23/2018 Priority: I More... SVT (supraventricular tachycardia) (HCC) [I47.1] 01/21/2018 More... Carotid artery disease (HCC) [I77.9] 01/22/2018 CAD (coronary artery disease) [I25.10] Priority: E More... Hypertension [I10] Priority: L More... Hyperlipidemia [E78.5] Pneumonia [J18.9] 10/27/2017 More... COPD (chronic obstructive pulmonary disease) (H* Priority: F More... Sleep apnea [G47.30] Priority: I More... HH (hiatus hernia) [K44.9] 01/21/2018 GERD (gastroesophageal reflux disease) [K21.9] Priority: K More... More... Arthritis [M19.90] Numbness and tingling of right leg [R20.0, R20.* 01/21/2018 Depression [F32.9] Atrial fibrillation (HCC) [I48.91] INVALID FOR* Priority: C More... Uncontrolled type 2 diabetes mellitus with stag*INVALID FOR* Priority: H More... More... More... Heart failure, systolic, acute (HCC) [I50.21] INVALID FOR*01/21/2018 More... Obesity [E66.09] INVALID FOR* Priority: M More... Gout [M10.9] Pacemaker [Z95.0] Priority: D More... Chronic combined systolic and diastolic CHF (co*INVALID FOR* Priority: B More... Elevated troponin [R74.8] INVALID FOR*01/22/2018 Priority: G More... Pulmonary hypertension (HCC) [I27.20] INVALID FOR* Oral thrush [B37.0] INVALID FOR*01/21/2018 Hyponatremia [E87.1] INVALID FOR* Priority: J More... Hyperkalemia [E87.5] INVALID FOR*01/22/2018 Priority: J Chest pain in adult [R07.9] INVALID FOR*02/12/2018 Priority: A More... Acute renal failure superimposed on stage 3 chr*INVALID FOR* Priority: A More... Obesity, Class II, BMI 35-39.9 [E66.9] INVALID FOR* Encounter Status:Closed by REMI KENNEDY on 05/23/18 EMERGENCY DEPARTMENT Observed: 05/19/2018 Status: F Source: [place] SUMMARY 6:49 PM [facility] REPOSITORY [facility] Medical Records Department [address] [place] [address] Emergency Department Summary 05/19/18 1212 MR#: [id number] Acct: [id number] Name: LUZ BACA Rep #: [id number] : 1940 77 From: Mandy Grajeda MD PCP: Mook Kamara MD Status: REG ER ADDENDUM by Shalonda Mast MD on 05/19/18 at 1849 Patient was checked out to me to check CTA chest results. CTA chest shows no demonstrated pulmonary embolism or arterial dissection. Findings suggesting early congestive heart failure. Epigastric ventral hernia containing inflamed fat and minimal fluid. Patient was advised of these findings. She is resting comfortably on reevaluation. She will follow-up with her primary care physician and Dr. Claudio as scheduled next week. She will return to the ED if she has any worsening complaints. Date Shalonda Mast MD cc: Mook Kamara MD * Signed - ER Visit Summary Date of Service: 05/19/18 Chief Complaint: Chest pain History of Present Illness: The patient is a 77 F with chest pain for the past 4 days. She describes a sudden sharp pain with shortness of breath. She was admitted end of April with chest pain and had a heart cath. She is back to her PCPs office today for follow-up and was sent to the ER. Patient does have 9 cardiac stents and has had bypass surgery. She does have a pacemaker/ICD. Physical Examination: Vital signs remarkable for pulse ox of 88% on 3 L nasal cannula in triage. The time of my examination her O2 sat is 100% on 2 1/2 L of nasal cannula which is her baseline. Patient sitting upright in bed no acute distress. Head neck examination is normal. Heart is regular rate and rhythm. Lung sounds are clear. She does have anterior chest wall tenderness. Abdomen is soft with epigastric tenderness. There is no guarding or rebound. Lower extreme examination reveals chronic venous skin changes. No significant edema is noted. Test Results: EKG is ventricular paced at 60. This is unchanged when compared to prior study. Chest x-ray shows stable pleural parenchymal changes at the left lung base. CBC was normal white count. Hemoglobin is 11.2 and platelet count is 124,000. This appears consistent with prior values. Chemistry studies are significant for creatinine of 3.31. LFTs and lipase are normal. INR is 1.7. Troponin is 0.672. This is consistent with her recent hospital admission when she had the heart cath that was unremarkable. I think this is chronically elevated secondary to her chronic renal failure. Emergency Department Course and Treatment: Patient received morphine and Zofran. On repeat evaluation she is resting comfortably. Primary care physician was concerned for PE and patient was sent for a CTA. The result of this is currently pending will be signed out to oncoming physician. This is been discussed with the patient as well. If the CTA is negative patient will be discharged home. She has [place] and Ultram that she will take as needed. She is to follow with her primary care physician. Treatment Plan: [] Disposition: Pending CTA results Impression: Chest pain This note was generated with Psonar dictation software. It may contain incorrect words, spelling, and punctuation that were not noted in review of the chart prior to signing ED Disposition - Plan for ED Patient: Chief Complaint: Shortness of Breath Referrals: Mook Kamara MD [Primary Care Provider] - What to do if you have Problems For any increased pain, shortness of breath, bleeding, nausea or vomiting, chest pain, or any unexpected problems, contact your Primary Care Provider. Call [facility] ([phone]) or report to the closest Emergency Room. Call 911 if necessary. 05/19/181731 <Electronically signed by Mandy Grajeda MD> Date Mandy Grajeda MD Cosigner Signature (If Indicated): Date CC: Mook Kamara MD DISCHARGE INSTRUCTION Observed: 05/19/2018 Status: F Source: [place] 5:28 PM [facility] [facility] REPOSITORY [facility] Medical Records Department [address] [place] [address] Discharge Instruction 05/19/188 MR#: [id number] Acct: [id number] Name: LUZ BACA Rep #: [id number] : 1940 77 From: Mandy Grajeda MD PCP: Mook Kamara MD Status: REG ER ED Disposition - Plan for ED Patient: Disposition: Home or Assisted Living Chief Complaint: Shortness of Breath Instructions: ED Chest Pain Atypical Unkn Cause Referrals: Mook Kamara MD [Primary Care Provider] - 1 Week What to do if you have Problems For any increased pain, shortness of breath, bleeding, nausea or vomiting, chest pain, or any unexpected problems, contact your Primary Care Provider. Call [facility] ([phone]) or report to the closest Emergency Room. Call 911 if necessary. 05/19/18 9808 <Electronically signed by Mandy Grajeda MD> Date Mandy Grajeda MD Cosigner Signature (If Indicated): Date CC: Mook Kamara MD CBC W/DIFF, AUTOMATED Collected: 05/19/2018 Status: F Source: [place] 12:45 PM [facility] REPOSITORY TYPE CODE TESTS RESULT OUT OF RANGE REFERENCE UNITS LAB L100.1000 4.4-11.0 K/mm3 Normal WBC 6.0 LAB L100.1200 4.2-5.4 M/mm3 Low RBC 3.70 LAB L100.1300 12.0-15.0 g/dl Low HGB 11.2 LAB L100.1400 37-47 % Low HCT 36.4 LAB L100.1500 81-99 fL Normal MCV 98.4 LAB L100.1600 27.0-32.0 pg Normal MCH 30.3 LAB L100.1700 32-36 g/gl Low MCHC 30.8 LAB L100.1810 11.6-14.6 % High RDW CV 15.1 LAB L100.1820 35.1-43.9 fl High RDW SD 53.8 LAB L100.1900 150-450 K/mm3 Low PLT 124 LAB L100.2000 6.2-12.0 fl Normal MPV 9.2 LAB L100.2100 47-70 % Normal NEUT% 63.6 LAB L100.2200 19-41 % Normal LY% 22.4 LAB L100.2300 0-10 % Normal MONO% 9.3 LAB L100.2400 0-5 % Normal EO% 4.0 LAB L100.2500 0-1 % Normal BASO% 0.5 LAB L100.2550 0.0-0.9 % Normal IM GRAN % 0.200 Result Comment: IG% - Immature Granulocytes (promyelocytes, myelocytes and metamyelocytes) > 1% indicates that a LEFT SHIFT is Present. LAB L100.2620 2.0-7.7 X10 3/uL Normal Absolute Neut 3.8 LAB L100.2720 0.83-4.51 X10 3/ul Normal Absolute Lymph 1.34 Performed By: #### L100.0100 #### [facility] Laboratory [address] [place], [address] PROTHROMBIN TIME W/INR Collected: 05/19/2018 Status: F Source: [place] 12:45 PM [facility] REPOSITORY TYPE CODE TESTS RESULT OUT OF RANGE REFERENCE UNITS LAB L300.4150 11.7-14.9 SECONDS High PROTIME 20.1 LAB L300.4200 Normal INR 1.7 Performed By: #### L300.3900, L300.4310 #### [facility] Laboratory [address] [facility] [address] PARTIAL THROMBOPLAST Collected: 05/19/2018 Status: F Source: [place] TIME 12:45 PM [facility] REPOSITORY TYPE CODE TESTS RESULT OUT OF RANGE REFERENCE UNITS LAB L300.4310 24.1-36.2 Seconds Normal PTT 34.9 Performed By: #### L300.3900, L300.4310 #### [facility] Laboratory [address] [place], [address] BASIC METABOLIC Collected: 05/19/2018 Status: F Source: [place] PROFILE (BMP) 12:45 PM [facility] REPOSITORY TYPE CODE TESTS RESULT OUT OF RANGE REFERENCE UNITS LAB L501.0100 74-106 mg/dL High GLU 135 Result Comment: Fasting Glucose result greater than or equal to 126 mg/dL suggests DIABETES MELLITUS per A.D.A. criteria. Please note revised GLUCOSE reference range effective 2017. LAB L501.1000 7-18 mg/dL Normal BUN 16 LAB L501.1100 0.55-1.02 mg/dL High CREAT,SERUM 3.31 Result Comment: The validity of the calculated GFR AND GFRAA in patients over 70 years has not been determined. Clinical correlation is essential. LAB L501.1110 >60 mL/min Low EST GFR 14 Result Comment: Non- GFR Calc LAB L501.1115 >60 mL/min Low EST GFR - AA 17 Result Comment: GFR Calc LAB L501.1255 ml/min Normal Estimated CRCL 13.67 LAB L501.1300 10-20 RATIO Low BUN/CRE 4.8 LAB L501.2200 8.5-10 mg/dL Normal .1 CA 8.7 LAB L501.5300 136-14 mmol/L Normal 5 NA 141 LAB L501.5600 3.5-5. mmol/L Normal 1 K 3.8 LAB L501.5900 98-107 mmol/L Normal CL 99 LAB L501.6100 21.0-3 mmol/L High 2.0 CO2 34.0 LAB L501.6200 5-15 Normal GAP 8 Performed By: #### L500.2500, L500.3400, L501.2450, L501.4010 #### [facility] [address] [place], [place], [address] LIVER PROFILE Collected: 05/19/2018 Status: F Source: [place] 12:45 PM [facility] REPOSITORY TYPE CODE TESTS RESULT OUT OF RANGE REFERENCE UNITS LAB L501.1500 6.4-8.2 g/dL Normal T PROT 7.2 LAB L501.1800 3.2-5.0 g/dL Low ALB 3.1 LAB L501.1950 2.2-4.2 g/dL Normal GLOB 4.1 LAB L501.4100 15-37 U/L Normal AST 19 LAB L501.4305 45-117 U/L Normal ALK P 87 LAB L501.4405 13-56 U/L Normal ALT 18 LAB L501.4600 0.20-1.00 mg/dL Normal T BILI 0.50 LAB L501.4700 0.00-0.30 mg/dL Normal D BILI 0.20 Performed By: #### L500.2500, L500.3400, L501.2450, L501.4010 #### [facility] Laboratory [address] [place], [address] LIPASE Collected: 05/19/2018 Status: F Source: [place] 12:45 PM [facility] REPOSITORY TYPE CODE TESTS RESULT OUT OF RANGE REFERENCE UNITS LAB L501.2450 73-393 U/L Normal LIPASE 253 Performed By: #### L500.2500, L500.3400, L501.2450, L501.4010 #### [facility] Laboratory [address] [place], [address] TROPONIN-I Collected: 05/19/2018 Status: F Source: [place] 12:45 PM [facility] REPOSITORY TYPE CODE TESTS RESULT OUT OF RANGE REFERENCE UNITS LAB L501.4010 <0.045 ng/mL High alert 0.672 TROPONIN-I Result Comment: Critical Result(s) Called at: 13:14:28 05/19/2018 by: Rosalina Ortega TROPONIN-I EXPECTED VALUES <0.045 Negative 0.045 - 0.590 Consistent with Cardiac Damage > OR = 0.600 Critical Value Not every elevated troponin is indicative of NE. These values should be used with clinical judgement in examining the patient's clinical picture for diagnosis. To establish a diagnosis of NE versus myocardial injury, there must be a demonstrated rise and/or fall in the troponin values, in addition to ischemic symptoms, EKG changes, new regional wall motion abnormality, and/or angiographical evidence. PLEASE NOTE: REFERENCE RANGES EDITED 18 Performed By: #### L500.2500, L500.3400, L501.2450, L501.4010 #### [facility] Laboratory [address] [place], [address] CTA CHEST W/WO Observed: 05/19/2018 Status: F Source: [place] CONTRAST 12:11 PM [facility] REPOSITORY [facility] Imaging Services [address] [place] [address] CTA Chest W/WO Contrast MR#: [id number] Acct: [id number] Name: LUZ BACA Rep #: [id number] : 1940 F 77 From: Theo Diego MD PCP: Mook Kamara MD Status: REG ER Study: CTA Chest W/WO Contrast Date of Exam: 05/19/18 Exam# [id number] Ordering Dr: Mandy Grajeda MD STUDY: CTA CHEST REASON FOR EXAM: Female, 77 years old. INTERMITTENT CP X 4 DAYS, SOB, STENTS X 9, HTN, PACER/ICD,CABG, PT ON DIALYSIS -- RADIATION DOSAGE (If Supplied By Facility): CTDIvol = ( 20.44 ) mGy, DLP = ( 707.58 ) mGycm TECHNIQUE: The examination was performed with the intravenous administration of 100 ml of Isovue 370 contrast material. Post-processing of the angiographic images was performed, with multiplanar reformation and 3D reconstruction. Individualized dose optimization techniques were used for this CT. COMPARISON: CR Chest May 19 2018 12:26pm FINDINGS: Epigastric ventral hernia containing inflamed fat and minimal fluid. There are coronary arterial calcifications. Multiple median sternotomy wires are noted consistent for cardiac surgery. Right internal jugular vascular line. The tip is in the superior vena caval - atrial junction. The heart is enlarged. There is a hiatal hernia. There are degenerative changes of the shoulders. There is no pneumothorax. Chronic appearing left pleural effusion. Left calcified pleural plaques. Right upper lobe calcified granuloma. There is diffuse interlobular septal thickening. Left lower lobe scarring. There is a left sided pacemaker battery pack. There are calcifications of the coronary arteries. Normal mediastinum. Normal hilar regions. Normal pulmonary arteries. There is atherosclerotic calcification of the aortic arch with tortuosity and elongation of the aortic arch and descending thoracic aorta. There are multi-level degenerative changes of the thoracic spine. There is no demonstrated abnormality of the visualized upper abdomen. CT/CTA Chest W/WO Contrast IMPRESSION: No demonstrated pulmonary embolism or arterial dissection. Findings suggesting early congestive heart failure. Epigastric ventral hernia containing inflamed fat and minimal fluid. Electronically Signed: Theo Diego MD at 18:02 EDT , Service support , CC: Mook Kamara MD; Mandy Grajeda MD Service Delivery Supervisor: Signed CHEST 1 VIEW Observed: 05/19/2018 Status: F Source: [place] (PORTABLE) 12:09 PM [facility] REPOSITORY [facility] Imaging Services [address] [place] [address] Chest 1 View (Portable) MR#: [id number] Acct: [id number] Name: LUZ BACA Rep #: [id number] : 1940 F 77 From: Antonio Pascual MD PCP: Mook Kamara MD Status: REG ER Study: Chest 1 View (Portable) Date of Exam: 05/19/18 Exam# [id number] Ordering Dr: Mandy Grajeda MD STUDY: X-RAY CHEST REASON FOR EXAM: Female, 77 years old. 4 day history of chest pain. TECHNIQUE: Single AP portable view of the chest. COMPARISON: Comparison is made with prior study dated May 11, 2018. FINDINGS: EKG electrodes are seen. A right-sided double lumen catheter is seen with the tip at the junction of the superior vena cava and right atrium. Stable pleural parenchymal changes at the left lung base. The right lung is clear. Sternal cerclage wires and vascular clips are present from a prior sternotomy and coronary artery bypass graft procedure (CABG). Moderate cardiomegaly. Normal mediastinum and samuel. Normal visualized pulmonary arteries. Normal visualized aortic arch and descending thoracic aorta. There are degenerative changes of the visualized thoracic spine. Normal visualized ribs, clavicles, and shoulders. There is no demonstrated abnormality of the visualized soft tissue structures of the upper abdomen. RAD/Chest 1 View (Portable) IMPRESSION: Stable pleural parenchymal changes at the left lung base. The right lung is clear. Electronically Signed: Antonio Pascual MD at 12:56 EDT Tel [phone], Service support , CC: Mook Kamara MD; Mandy Grajeda MD Service Delivery Supervisor: Signed PROGRESS Observed: 05/19/2018 Status: COMPLETED Source: [place] 11:27 AM [facility] REPOSITORY HNO ID: [id number] Author: Remi (Allyson) Brent Service: (none) Author Type: Registered Nurse Type: Progress Notes Filed: 05/19/2018 11:30 AM Note Text: PRIMARY CARE COORDINATION IN OFFICE VISIT WITH PCP Patient has been identified by name and date of . PCP Assessment/Plan: Reviewed PCP plan with patient using Teach Back Patient having chest pain, rates 7/10 and may be sharper than when in hospital. Notes SOB with pain and if it lasts long enough pt has nausea States has 5-6 episodes per day Patient had episode of chest pain in office, Became pale and SOB PCC Plan of Care: PCC Interventions: TC to Dr. Chip Webb, cardiology, nurse discussed chest pain and asked if MD wants to see pt sooner? States MD isn't back from vacation until 05/24 and he is instructing pts to go to ER Next Office Visit: 05/19/2018 Plan For Next Call: Pt sent to ER by PCP will F/U call when discharged Remi Kennedy RN May 19, 2018 ECG COMPLETE W Observed: 05/19/2018 Status: F Source: [place] INTERPRETATION 11:09 AM [facility] REPOSITORY NAME : LUZ BACA PID : [id number] : 1940 Gender : Female Race : ORD : [id number] Procedure Date : May 19 2018 11:09:21 Edit Date : May 20 2018 16:08:44 Diagnosis:VENTRICULAR-PACED RHYTHM ABNORMAL ECG Confirmed by CLAY GARCIA D.O. ([id number]) on 05/20/2018 4:08:35 PM Ventricular Rate : 63 BPM Atrial Rate : 277 BPM QRS Duration : 216 ms Q-T Interval : 566 ms QTC Calculation(Bezet) : 579 ms R Dupont : -81 degrees T Dupont : 99 degrees Test Reason : Location : 185 : [facility] Overread By : CLAY GARCIA D.O. Edited By : CLAY GARCIA D.O. Referred By : JAMESON KAMARA Acquired by : INGRIS, PROGRESS Observed: 05/19/2018 Status: COMPLETED Source: [place] 10:40 AM [facility] REPOSITORY O ID: [id number] Author: Jameson Warner () Koffi Service: (none) Author Type: Physician Type: Progress Notes Filed: 05/19/2018 6:23 PM Note Text: Chief Complaint No chief complaint on file. HPI Luz Baca is a 77 year old female who presents here today for Hospital Discharge Follow up. Patient was admitted to [facility] with complaint of chest pain on 05/11. TRANSITION CARE MANAGEMENT (TCM) INITIAL CONTACT ? ? Provider Action/FYI: ? Please File Medication Updates ? ?Patient having occasional slight chest pressure, has not taken NTG. Instructed pt to take NTG, if chest pressure continues call supervisor porcelain department, if chest pressure increases go to ER Slight SOB, less than before hospitalization ? Now on sliding scale insulin, states most times only taking 1 unit. ? ? Initial contact with patient post discharge, spoke to Daughter, Octavia and patient. Patient identified by name and . ? SUMMARY: -Pt discharged from [facility] on 05/13. -Follow up appointment on 05/19. Appt with Dr. Cardona 05/24 -Medication review done with daughter. -Admitted for: #1 non-STEMI #2 end-stage renal disease requiring dialysis #3 type 2 diabetes-continue present treatment #4 chronic hypoxic respiratory failure #5 chronic atrial fibrillation with paced rhythm #6 chronic obstructive pulmonary disease #7 hypertension #8 hyperlipidemia #9 coronary artery disease #10 severe pulmonary hypertension ? CONCERNS: Patient having occasional slight chest pressure, has not taken NTG. Instructed pt to take NTG, if chest pressure continues call supervisor porcelain department, if chest pressure increases go to ER Slight SOB, less than before hospitalization Now on sliding scale insulin, states most times only taking 1 unit. ? NEW MEDICATIONS: Clopidogrel Bisulfate [Plavix] 75 mg PO DAILY #30 tab ? MEDICATION CHANGES: Isosorbide 60 mg daily Pt now taking 30 mg BID Simvastatin 40 mg Daily Pt taking 20 mg 2 tablets Daily Novolog insulin See Medications Protonix 40 mg Daily ? MEDS HELD/DISCONTINUED: omeprazole (PRILOSEC) 20 mg capsule Sig: Take 20 mg by mouth once daily. ? BRIEF HOSPITAL COURSE: The patient is a 77 year old F who was seen in the emergency room at [facility] with chief complaint of precordial chest pain with nausea and diaphoresis during dialysis. ER labs showed elevated troponin of 0.71, EKG- paced rhythm, creatinine-elevated. Admitted to PCU, cardiac enzymes were cycled; trended downward but still elevated. Pt seen in consultation by cardiology and nephrology. Echocardiogram showed a normal ejection fraction but severe pulmonary hypertension. Pt underwent dialysis during hospitalization Cardiac catheterization showed no evidence of occlusive coronary disease. On 05/13/18, pt felt to be in stable condition for discharge home Since discharge, patient still having 04/26 chest pain without radiation associated with SOB. Described as pressure/stabbing in center of her chest. Exacerbated with exertion and occasionally comes on at rest. Occurs about 5-6 times per day and lasts for about 2-3 minutes and then resolves spontaneously. Has tried nitro for pain which has not helped at all with symptoms. Taking Imdur 60 mg daily instead of BID as recommended on discharge, Dr. Cardona recommending daily dosage per recent telephone encounter. Oxygenating well on 2.5-3 L via NC. Xray obtained during hospitalization negative. CTA chest not obtained, patient has been on anticoagulation with Eliquis as prescribed. Noted BP on lower end of normal today. Denies lightheadedness/vertigo. Tolerating PO diet at home. Admits to new symptoms of loose diarrhea with foul odor and mucous since discharge. Up to 5-6 episodes of loose stools per day. Past medical history, appointments, medications, allergies reviewed. Previous Medical History PAST MEDICAL HISTORY Diagnosis Date - Arthritis - Atrial fibrillation (HCC) - CAD (coronary artery disease) stents x9, defibrillator, CABG. Seeing Dr. Cardona - Cardiac defibrillator in place - Cardiomegaly - Carotid artery disease ([facility]) left - Chronic kidney disease (CKD) stage G3b/A2, moderately decreased glomerular filtration rate (GFR) between 30-44 mL/min/1.73 square meter and albuminuria creatinine ratio between 30-299 mg/g ([facility]) Dr. Martin - COPD (chronic obstructive pulmonary disease) ([facility]) Dr. Cruz - Depression - Diabetes (HCC) - Diabetic neuropathy ([facility]) - Edema - GERD (gastroesophageal reflux disease) - Gout with hyperuricemia - HH (hiatus hernia) - HOCM (hypertrophic obstructive cardiomyopathy) ([facility]) S/P Septal Myectomy in 2003. Now with LVEF 50% and mod/severe pulm HTN. - HTN (hypertension) - Hyperlipidemia - Morbid obesity with BMI of 40.0-44.9, adult ([facility]) - Sleep apnea 2011 not on CPAP, unable to tolerate mask 02/2017 - SVT (supraventricular tachycardia) ([facility]) NSVT and questionable VT in 2003 post op Previous Surgical History PAST SURGICAL HISTORY Procedure Laterality Date - CHOLECYSTECTOMY HX - HEART SURGERY HX 07/18/2004 Septal myectomy and CABG x2 (DEBORAH-LAD, SVG-PDA). - HYSTERECTOMY HX - IANDD PERIANAL ABSCESS - PAST SURGICAL HISTORY OF left breast nodule removed - PAST SURGICAL HISTORY OF skin lesions removed Family History FAMILY HISTORY Problem Relation Age of Onset - Hypertension Mother living at age 93, HTN - Heart Failure Mother [place] - Cancer Father age 71, lung cancer Patient Allergies ALLERGIES Allergen Reactions - Aspirin Other: See Comments Patient states that she bled out every orifice, sts not allowed to take it at all. Patient states she was bleeding out of nose and mouth after one dose. - Bactrim [Sulfametho* Other: See Comments My throat swells up. - Latex Rash, Itching Itching and welts. No wheezing or shortness of breath. - Penicillins Rash, Itching Tolerated ceftriaxone during 11/2017 admission and cefepime during 12/2017 admission - Tetracycline Rash, GI Upset Emesis and diarrhea. - Atorvastatin Rash - Codeine Other: See Comments Numbness - Dilaudid [Hydromorp* Mental Status Change - Meperidine - Pentazocine - Pioglitazone Unknown - Propoxyphene Current Medications Current Outpatient Prescriptions on File Prior to Visit: pantoprazole DR (PROTONIX) 40 mg tablet Take 1 tablet by mouth once daily. insulin aspart U-100 (NOVOLOG FLEXPEN U-100 INSULIN) 100 unit/mL inpn Using Sliding Scale: 150-209 1 unit, 210-269 2 units, 270- 329 3 units, 330-389 4 units, 390-449 5 units simvastatin (ZOCOR) 20 mg tablet Take 2 tablets by mouth every morning. isosorbide mononitrate ER (IMDUR) 60 mg 24 hr tablet Take 1 tablet by mouth once daily. 05/[address] [facility] D/C: taking 30 mg BID clopidogrel (PLAVIX) 75 mg tablet Take 1 tablet by mouth once daily. isosorbide mononitrate ER (IMDUR) 30 mg 24 hr tablet TAKE ONE TABLET BY MOUTH TWICE DAILY bumetanide (BUMEX) 2 mg tablet Take 1.5 tablets by mouth twice daily. Hold on dialysis days cephALEXin (KEFLEX) 500 mg capsule Take 500 mg by mouth twice daily. senna (SENNA) 8.6 mg tab Take 8.6 mg by mouth once daily. HYDROcodone-acetaminophen (NORCO) 5-325 mg per tablet Take 1 tablet by mouth every 8 hours as needed. traZODone (DESYREL) 50 mg tablet Take 50 mg by mouth daily at bedtime. traMADol (ULTRAM) 50 mg tablet Take 50 mg by mouth every 8 hours as needed. omeprazole (PRILOSEC) 20 mg capsule Take 20 mg by mouth once daily. ondansetron (ZOFRAN) 4 mg tablet Take 4 mg by mouth every 8 hours as needed. ipratropium-albuterol (DUONEB) 0.5 mg-3 mg(2.5 mg base)/3 mL nebu Inhale 3 mL as instructed every 4 hours while awake. And prn for wheezing/shortness of breath. budesonide (PULMICORT) 0.5 mg/2 mL nebulizer solution Use 2 mL via nebulizer once daily. INHALE 2 ML BY NEBULIZER OVER 5-15 MINUTES EVERY 12 HOURS. amiodarone (PACERONE) 200 mg tablet Take 1 tablet by mouth once daily. carvedilol (COREG) 3.125 mg tablet Take 1 tablet by mouth twice daily with meals. gabapentin (NEURONTIN) 100 mg capsule Take 1 capsule by mouth twice daily for 30 days. melatonin 3 mg tablet Take 1 tablet by mouth daily at bedtime. torsemide (DEMADEX) 10 mg tablet Take 5 tablets by mouth once daily. insulin glargine (LANTUS SOLOSTAR U-100 INSULIN) 100 unit/mL (3 mL) inpn Inject 50 Units subcutaneously every morning. insulin glargine (LANTUS SOLOSTAR U-100 INSULIN) 100 unit/mL (3 mL) inpn Inject 36 Units subcutaneously daily at bedtime. bacitracin (ANTIBIOTIC, BACITRACIN ZINC,) ointment Apply 1 application to affected area twice daily. nystatin (NYSTOP) powder Apply 1 application to affected area three times daily. apixaban (ELIQUIS) 5 mg tab(s) Take 5 mg by mouth twice daily. guaiFENesin-dextromethorphan (ROBITUSSIN DM) 100-10 mg/5 mL syrup Take 5-10 mL by mouth every 6 hours as needed for Cough. nitroglycerin sublingual (NITROQUICK) 0.4 mg SL tablet Dissolve 1 tablet under the tongue every 5 minutes as needed. OXYGEN, HOME THERAPY, Inhale 2.5 L/min as instructed continuous. 3 L/min when leaves home. No current facility-administered medications on file prior to visit. Social History Social History Marital status: Spouse name: Years of education: Number of children: Social History Main Topics Smoking status: Former Smoker Packs/day: 2.50 Years: 43.00 Types: Cigarettes Start date: 1961 Quit date: 07/07/2004 Smokeless tobacco: Never Used Alcohol use: No Drug use: No Other Topics Concern Caffeine Concern Yes Comment:coffee 1 cup daily Special Diet No Comment:Regular Exercise No Comment:no unable, due to SOB x several months. Social History Narrative Patient and daughter live together. Review of Symptoms REVIEW OF SYSTEMS GENERAL: No weight loss, malaise or fevers RESPIRATORY: See HPI CARDIOVASCULAR: Negative for chest pain, leg swelling, hypertension, CHF or palpitations GI: No nausea, vomiting, or diarrhea SKIN: Negative for lesions, rash, and itching EXAM: BP (!) 86/48 Pulse 62 Temp 36.6 ?C (97.8 ?F) (Temporal Artery) Resp 12 SpO2 95% General Appearance: Pale appearing, fatigued, normal respiratory rate, in wheelchair, on oxygen. Skin: pale, no rashes or lesions. . Lungs: Lungs clear to auscultation. No wheezing, rhonchi, rales. Heart: RRR without murmur, gallop, or rubs. No ectopy. Abdomen: Normal abdominal exam, Abdomen soft, non-tender. Bowel sounds normal. No masses, organomegaly. Extremities: No deformities, edema, skin discoloration, clubbing or cyanosis. Good capillary refill. . Health Maintenance List DAMION/ARB MED PRESCRIBED due on 1959 DTAP,TDAP,TD(1 - Tdap) due on 1960 COLORECTAL CANCER SCREENING,SEE MODIFIER due on 1991 BONE DENSITY due on 2006 ADULT PREVNAR-13 due on 2006 PNEUMOVAX AGE 65 AND OVER WITH 5YR LOOKBACK(1) due on 2006 HBA1C due on 04/27/2018 URINE ALBUMIN:CREATININE RATIO due on 05/17/2018 LDL CHOLESTEROL due on 05/17/2018 INFLUENZA(1) due on 06/18/2018 STATIN MED ADHERENCE due on 06/18/2018 DIABETES MED ADHERENCE due on 06/18/2018 DILATED RETINAL EXAM due on 10/27/2018 DIABETIC FOOT EXAM due on 01/31/2019 SERUM CREATININE due on 02/18/2019 ANNUAL PCP TEAM CHRONIC DISEASE VISIT due on 05/03/2019 BLOOD PRESSURE CONTROLLED due on 05/03/2019 HEMOGLOBIN/HEMATOCRIT due on 05/10/2019 Data reviewed EKG: Ventricular paced rhythm at 64 bpm ASSESSMENT/PLAN: 1. NSTEMI (non-ST elevated myocardial infarction) (HCC) - ICD9: 410.70, ICD10: I21.4 (primary diagnosis) Patient still with chest pain despite current treatment. Patient with 2 episodes of chest pain while in the office today. Called cardiology office and Dr. Cardona out of town. Recommending patient return to the ED today for repeat evaluation. Patient agreeable. Daughter to drive to ER. Report called to ED physician. 2. Chest pain, unspecified type - ICD9: 786.50, ICD10: R07.9 See above 3. Coronary artery disease, angina presence unspecified, unspecified vessel or lesion type, unspecified whether rincon or transplanted heart - ICD9: 414.00, ICD10: I25.10 See above - ISOSORBIDE MONONITRATE ER 60 MG TABLET,EXTENDED RELEASE 24 HR - ECG COMPLETE W INTERPRETATION 4. Diarrhea, unspecified type - ICD9: 787.91, ICD10: R19.7 Possible C diff. Will send to ED for possible admission, IV fluids, and stool studies. - C. DIFFICILE PCR 5. Hospital discharge follow-up - ICD9: V67.59, ICD10: Z09 Patient's symptoms unchanged. Return to ED and will have patient follow up with cardiology and this office. Jameson Kamara MD CNOV Observed: 05/19/2018 Status: COMPLETED Source: [place] 10:40 AM [facility] REPOSITORY Office Visit (FAMPWS) LUZ BACA ([id number]) 1940 F Date Time Provider Department 05/19/18 10:40 AM JAMESON KAMARA) FAMPWS During your visit today, we recorded the following information about you: Temperature Pulse Respiration Blood pressure 97.8 degrees 62/minute 12/minute 86/48 Jameson Kamara MD 05/19/2018 6:23 PM Signed Chief Complaint No chief complaint on file. HPI Luz Baca is a 77 year old female who presents here today for Hospital Discharge Follow up. Patient was admitted to [facility] with complaint of chest pain on 05/11. TRANSITION CARE MANAGEMENT (TCM) INITIAL CONTACT ? ? Provider Action/FYI: ? Please File Medication Updates ? ?Patient having occasional slight chest pressure, has not taken NTG. Instructed pt to take NTG, if chest pressure continues call supervisor porcelain department, if chest pressure increases go to ER Slight SOB, less than before hospitalization ? Now on sliding scale insulin, states most times only taking 1 unit. ? ? Initial contact with patient post discharge, spoke to Daughter, Octavia and patient. Patient identified by name and . ? SUMMARY: -Pt discharged from [facility] on 05/13. -Follow up appointment on 05/19. Appt with Dr. Cardona 05/24 -Medication review done with daughter. -Admitted for: #1 non-STEMI #2 end-stage renal disease requiring dialysis #3 type 2 diabetes-continue present treatment #4 chronic hypoxic respiratory failure #5 chronic atrial fibrillation with paced rhythm #6 chronic obstructive pulmonary disease #7 hypertension #8 hyperlipidemia #9 coronary artery disease #10 severe pulmonary hypertension ? CONCERNS: Patient having occasional slight chest pressure, has not taken NTG. Instructed pt to take NTG, if chest pressure continues call supervisor porcelain department, if chest pressure increases go to ER Slight SOB, less than before hospitalization Now on sliding scale insulin, states most times only taking 1 unit. ? NEW MEDICATIONS: Clopidogrel Bisulfate [Plavix] 75 mg PO DAILY #30 tab ? MEDICATION CHANGES: Isosorbide 60 mg daily Pt now taking 30 mg BID Simvastatin 40 mg Daily Pt taking 20 mg 2 tablets Daily Novolog insulin See Medications Protonix 40 mg Daily ? MEDS HELD/DISCONTINUED: omeprazole (PRILOSEC) 20 mg capsule Sig: Take 20 mg by mouth once daily. ? BRIEF HOSPITAL COURSE: The patient is a 77 year old F who was seen in the emergency room at [facility] with chief complaint of precordial chest pain with nausea and diaphoresis during dialysis. ER labs showed elevated troponin of 0.71, EKG- paced rhythm, creatinine-elevated. Admitted to PCU, cardiac enzymes were cycled; trended downward but still elevated. Pt seen in consultation by cardiology and nephrology. Echocardiogram showed a normal ejection fraction but severe pulmonary hypertension. Pt underwent dialysis during hospitalization Cardiac catheterization showed no evidence of occlusive coronary disease. On 05/13/18, pt felt to be in stable condition for discharge home Since discharge, patient still having 7/10 chest pain without radiation associated with SOB. Described as pressure/stabbing in center of her chest. Exacerbated with exertion and occasionally comes on at rest. Occurs about 5-6 times per day and lasts for about 2-3 minutes and then resolves spontaneously. Has tried nitro for pain which has not helped at all with symptoms. Taking Imdur 60 mg daily instead of BID as recommended on discharge, Dr. Cardona recommending daily dosage per recent telephone encounter. Oxygenating well on 2.5-3 L via NC. Xray obtained during hospitalization negative. CTA chest not obtained, patient has been on anticoagulation with Eliquis as prescribed. Noted BP on lower end of normal today. Denies lightheadedness/vertigo. Tolerating PO diet at home. Admits to new symptoms of loose diarrhea with foul odor and mucous since discharge. Up to 5-6 episodes of loose stools per day. Past medical history, appointments, medications, allergies reviewed. Previous Medical History PAST MEDICAL HISTORY Diagnosis Date - Arthritis - Atrial fibrillation (HCC) - CAD (coronary artery disease) stents x9, defibrillator, CABG. Seeing Dr. Cardona - Cardiac defibrillator in place - Cardiomegaly - Carotid artery disease (HCC) left - Chronic kidney disease (CKD) stage G3b/A2, moderately decreased glomerular filtration rate (GFR) between 30-44 mL/min/1.73 square meter and albuminuria creatinine ratio between 30-299 mg/g ([facility]) Dr. Martin - COPD (chronic obstructive pulmonary disease) ([facility]) Dr. Cruz - Depression - Diabetes ([facility]) - Diabetic neuropathy ([facility]) - Edema - GERD (gastroesophageal reflux disease) - Gout with hyperuricemia - HH (hiatus hernia) - HOCM (hypertrophic obstructive cardiomyopathy) ([facility]) S/P Septal Myectomy in 2003. Now with LVEF 50% and mod/severe pulm HTN. - HTN (hypertension) - Hyperlipidemia - Morbid obesity with BMI of 40.0-44.9, adult ([facility]) - Sleep apnea 2011 not on CPAP, unable to tolerate mask 02/2017 - SVT (supraventricular tachycardia) ([facility]) NSVT and questionable VT in 2003 post op Previous Surgical History PAST SURGICAL HISTORY Procedure Laterality Date - CHOLECYSTECTOMY HX - HEART SURGERY HX 07/18/2004 Septal myectomy and CABG x2 (DEBORAH-LAD, SVG-PDA). - HYSTERECTOMY HX - IANDD PERIANAL ABSCESS - PAST SURGICAL HISTORY OF left breast nodule removed - PAST SURGICAL HISTORY OF skin lesions removed Family History FAMILY HISTORY Problem Relation Age of Onset - Hypertension Mother living at age 93, HTN - Heart Failure Mother [place] - Cancer Father age 71, lung cancer Patient Allergies ALLERGIES Allergen Reactions - Aspirin Other: See Comments Patient states that she bled out every orifice, sts not allowed to take it at all. Patient states she was bleeding out of nose and mouth after one dose. - Bactrim [Sulfametho* Other: See Comments My throat swells up. - Latex Rash, Itching Itching and welts. No wheezing or shortness of breath. - Penicillins Rash, Itching Tolerated ceftriaxone during 11/2017 admission and cefepime during 12/2017 admission - Tetracycline Rash, GI Upset Emesis and diarrhea. - Atorvastatin Rash - Codeine Other: See Comments Numbness - Dilaudid [Hydromorp* Mental Status Change - Meperidine - Pentazocine - Pioglitazone Unknown - Propoxyphene Current Medications Current Outpatient Prescriptions on File Prior to Visit: pantoprazole DR (PROTONIX) 40 mg tablet Take 1 tablet by mouth once daily. insulin aspart U-100 (NOVOLOG FLEXPEN U-100 INSULIN) 100 unit/mL inpn Using Sliding Scale: 150-209 1 unit, 210-269 2 units, 270-329 3 units, 330-389 4 units, 390-449 5 units simvastatin (ZOCOR) 20 mg tablet Take 2 tablets by mouth every morning. isosorbide mononitrate ER (IMDUR) 60 mg 24 hr tablet Take 1 tablet by mouth once daily. 05/16 at hospital D/C: taking 30 mg BID clopidogrel (PLAVIX) 75 mg tablet Take 1 tablet by mouth once daily. isosorbide mononitrate ER (IMDUR) 30 mg 24 hr tablet TAKE ONE TABLET BY MOUTH TWICE DAILY bumetanide (BUMEX) 2 mg tablet Take 1.5 tablets by mouth twice daily. Hold on dialysis days cephALEXin (KEFLEX) 500 mg capsule Take 500 mg by mouth twice daily. senna (SENNA) 8.6 mg tab Take 8.6 mg by mouth once daily. HYDROcodone-acetaminophen (NORCO) 5-325 mg per tablet Take 1 tablet by mouth every 8 hours as needed. traZODone (DESYREL) 50 mg tablet Take 50 mg by mouth daily at bedtime. traMADol (ULTRAM) 50 mg tablet Take 50 mg by mouth every 8 hours as needed. omeprazole (PRILOSEC) 20 mg capsule Take 20 mg by mouth once daily. ondansetron (ZOFRAN) 4 mg tablet Take 4 mg by mouth every 8 hours as needed. ipratropium-albuterol (DUONEB) 0.5 mg-3 mg(2.5 mg base)/3 mL nebu Inhale 3 mL as instructed every 4 hours while awake. And prn for wheezing/shortness of breath. budesonide (PULMICORT) 0.5 mg/2 mL nebulizer solution Use 2 mL via nebulizer once daily. INHALE 2 ML BY NEBULIZER OVER 5-15 MINUTES EVERY 12 HOURS. amiodarone (PACERONE) 200 mg tablet Take 1 tablet by mouth once daily. carvedilol (COREG) 3.125 mg tablet Take 1 tablet by mouth twice daily with meals. gabapentin (NEURONTIN) 100 mg capsule Take 1 capsule by mouth twice daily for 30 days. melatonin 3 mg tablet Take 1 tablet by mouth daily at bedtime. torsemide (DEMADEX) 10 mg tablet Take 5 tablets by mouth once daily. insulin glargine (LANTUS SOLOSTAR U-100 INSULIN) 100 unit/mL (3 mL) inpn Inject 50 Units subcutaneously every morning. insulin glargine (LANTUS SOLOSTAR U-100 INSULIN) 100 unit/mL (3 mL) inpn Inject 36 Units subcutaneously daily at bedtime. bacitracin (ANTIBIOTIC, BACITRACIN ZINC,) ointment Apply 1 application to affected area twice daily. nystatin (NYSTOP) powder Apply 1 application to affected area three times daily. apixaban (ELIQUIS) 5 mg tab(s) Take 5 mg by mouth twice daily. guaiFENesin-dextromethorphan (ROBITUSSIN DM) 100-10 mg/5 mL syrup Take 5-10 mL by mouth every 6 hours as needed for Cough. nitroglycerin sublingual (NITROQUICK) 0.4 mg SL tablet Dissolve 1 tablet under the tongue every 5 minutes as needed. OXYGEN, HOME THERAPY, Inhale 2.5 L/min as instructed continuous. 3 L/min when leaves home. No current facility-administered medications on file prior to visit. Social History Social History Marital status: Spouse name: Years of education: Number of children: Social History Main Topics Smoking status: Former Smoker Packs/day: 2.50 Years: 43.00 Types: Cigarettes Start date: 1961 Quit date: 07/07/2004 Smokeless tobacco: Never Used Alcohol use: No Drug use: No Other Topics Concern Caffeine Concern Yes Comment:coffee 1 cup daily Special Diet No Comment:Regular Exercise No Comment:no unable, due to SOB x several months. Social History Narrative Patient and daughter live together. Review of Symptoms REVIEW OF SYSTEMS GENERAL: No weight loss, malaise or fevers RESPIRATORY: See HPI CARDIOVASCULAR: Negative for chest pain, leg swelling, hypertension, CHF or palpitations GI: No nausea, vomiting, or diarrhea SKIN: Negative for lesions, rash, and itching EXAM: BP (!) 86/48 Pulse 62 Temp 36.6 ?C (97.8 ?F) (Temporal Artery) Resp 12 SpO2 95% General Appearance: Pale appearing, fatigued, normal respiratory rate, in wheelchair, on oxygen. Skin: pale, no rashes or lesions. . Lungs: Lungs clear to auscultation. No wheezing, rhonchi, rales. Heart: RRR without murmur, gallop, or rubs. No ectopy. Abdomen: Normal abdominal exam, Abdomen soft, non-tender. Bowel sounds normal. No masses, organomegaly. Extremities: No deformities, edema, skin discoloration, clubbing or cyanosis. Good capillary refill. . Health Maintenance List DAMION/ARB MED PRESCRIBED due on 1959 DTAP,TDAP,TD(1 - Tdap) due on 1960 COLORECTAL CANCER SCREENING,SEE MODIFIER due on 1991 BONE DENSITY due on 2006 ADULT PREVNAR-13 due on 2006 PNEUMOVAX AGE 65 AND OVER WITH 5YR LOOKBACK(1) due on 2006 HBA1C due on 04/27/2018 URINE ALBUMIN:CREATININE RATIO due on 05/17/2018 LDL CHOLESTEROL due on 05/17/2018 INFLUENZA(1) due on 06/18/2018 STATIN MED ADHERENCE due on 06/18/2018 DIABETES MED ADHERENCE due on 06/18/2018 DILATED RETINAL EXAM due on 10/27/2018 DIABETIC FOOT EXAM due on 01/31/2019 SERUM CREATININE due on 02/18/2019 ANNUAL PCP TEAM CHRONIC DISEASE VISIT due on 05/03/2019 BLOOD PRESSURE CONTROLLED due on 05/03/2019 HEMOGLOBIN/HEMATOCRIT due on 05/10/2019 Data reviewed EKG: Ventricular paced rhythm at 64 bpm ASSESSMENT/PLAN: 1. NSTEMI (non-ST elevated myocardial infarction) (HCC) - ICD9: 410.70, ICD10: I21.4 (primary diagnosis) Patient still with chest pain despite current treatment. Patient with 2 episodes of chest pain while in the office today. Called cardiology office and Dr. Cardona out of town. Recommending patient return to the ED today for repeat evaluation. Patient agreeable. Daughter to drive to ER. Report called to ED physician. 2. Chest pain, unspecified type - ICD9: 786.50, ICD10: R07.9 See above 3. Coronary artery disease, angina presence unspecified, unspecified vessel or lesion type, unspecified whether rincon or transplanted heart - ICD9: 414.00, ICD10: I25.10 See above - ISOSORBIDE MONONITRATE ER 60 MG TABLET,EXTENDED RELEASE 24 HR - ECG COMPLETE W INTERPRETATION 4. Diarrhea, unspecified type - ICD9: 787.91, ICD10: R19.7 Possible C diff. Will send to ED for possible admission, IV fluids, and stool studies. - C. DIFFICILE PCR 5. Hospital discharge follow-up - ICD9: V67.59, ICD10: Z09 Patient's symptoms unchanged. Return to ED and will have patient follow up with cardiology and this office. Jameson Kamara MD Referring Provider: ISABELA LADD [[id number]] Allergies As of Date: 05/19/2018 Noted Allergy Reaction ASPIRIN 01/20/2018 14 - Other: See Comments Comments: Patient states that she bled out every orifice, sts not allowed to take it at all. Patient states she was bleeding out of nose and mouth after one dose. BACTRIM (SULFAMETHOXAZOLE-TRIMETH*05/17/2017 14 - Other: See Comments Comments: My throat swells up. LATEX 05/17/2017 2 - Rash 9 - Itching Comments: Itching and welts. No wheezing or shortness of breath. PENICILLINS 07/14/2004 2 - Rash 9 - Itching Comments: Tolerated ceftriaxone during 11/2017 admission and cefepime during 12/2017 admission TETRACYCLINE 09/29/2010 2 - Rash 8 - GI Upset Comments: Emesis and diarrhea. ATORVASTATIN 05/17/2017 2 - Rash CODEINE 05/17/2017 14 - Other: See Comments Comments: Numbness DILAUDID (HYDROMORPHONE (BULK)) 05/17/2017 1 - Mental Status Change MEPERIDINE 07/14/2004 PENTAZOCINE 07/14/2004 PIOGLITAZONE 05/17/2017 16 - Unknown PROPOXYPHENE 07/14/2004 Date Reviewed: 05/19/2018 Reviewed by: Sean Han Ma - Fully Assessed Reason for Visit: Hospital Follow Up [177] Cmt: TCM 7 Primary Visit Diagnosis:NSTEMI (non-ST elevated myocardial infarction) (HCC) [I21.4] Other Visit Diagnoses:Chest pain, unspecified type [R07.9] Coronary artery disease, angina presence unspecified, unspecified vessel or lesion type, unspecified whether rincon or transplanted heart [I25.10] Diarrhea, unspecified type [R19.7] Hospital discharge follow-up [Z09] Order(s):isosorbide mononitrate ER (IMDUR) 60 mg 24 hr tabletTake 1 tablet by mouth once daily.Disp: 30 tabletRfl: 5 C. DIFFICILE PCR [SQCDPCR] Order #: [id number] ECG COMPLETE W INTERPRETATION [ECG01] Order #: [id number] FUTURE Prescriptions as of 05/19/2018 Sig: ISOSORBIDE MONONITRATE ER 60 * Take 1 tablet by mouth once d* PANTOPRAZOLE 40 MG TABLET,DEL* Take 1 tablet by mouth once d* INSULIN ASPART U-100 100 UNI* Using Sliding Scale: 150-209* SIMVASTATIN 20 MG TABLET Take 2 tablets by mouth every* CLOPIDOGREL 75 MG TABLET Take 1 tablet by mouth once d* SENNOSIDES 8.6 MG TABLET Take 8.6 mg by mouth once carlos* HYDROCODONE 5 MG-ACETAMINOPHE* Take 1 tablet by mouth every * TRAZODONE 50 MG TABLET Take 50 mg by mouth daily at * TRAMADOL 50 MG TABLET Take 50 mg by mouth every 8 h* ONDANSETRON HCL 4 MG TABLET Take 4 mg by mouth every 8 ho* IPRATROPIUM-ALBUTEROL 0.5 MG-* Inhale 3 mL as instructed leanne* BUDESONIDE 0.5 MG/2 ML SUSPEN* Use 2 mL via nebulizer once d* AMIODARONE 200 MG TABLET Take 1 tablet by mouth once d* CARVEDILOL 3.125 MG TABLET Take 1 tablet by mouth twice * INSULIN GLARGINE (U-100) 100 * Inject 50 Units subcutaneousl* INSULIN GLARGINE (U-100) 100 * Inject 36 Units subcutaneousl* BACITRACIN ZINC 500 UNIT/GRAM* Apply 1 application to affect* NYSTATIN 100,000 UNIT/GRAM TO* Apply 1 application to affect* APIXABAN 5 MG TABLET Take 5 mg by mouth twice janeth* DEXTROMETHORPHAN-GUAIFENESIN * Take 5-10 mL by mouth every 6* NITROGLYCERIN 0.4 MG SUBLINGU* Dissolve 1 tablet under the t* OXYGEN (HOME THERAPY) Inhale 2.5 L/min as instructe* Problem List As Of Date 05/19/2018 Noted Resolved HOCM (hypertrophic obstructive cardiomyopathy) * 01/23/2018 Priority: I More... SVT (supraventricular tachycardia) (HCC) [I47.1] 01/21/2018 More... Carotid artery disease (HCC) [I77.9] 01/22/2018 CAD (coronary artery disease) [I25.10] Priority: E More... Hypertension [I10] Priority: L More... Hyperlipidemia [E78.5] Pneumonia [J18.9] 10/27/2017 More... COPD (chronic obstructive pulmonary disease) (H* Priority: F More... Sleep apnea [G47.30] Priority: I More... HH (hiatus hernia) [K44.9] 01/21/2018 GERD (gastroesophageal reflux disease) [K21.9] Priority: K More... More... Arthritis [M19.90] Numbness and tingling of right leg [R20.0, R20.* 01/21/2018 Depression [F32.9] Atrial fibrillation (HCC) [I48.91] INVALID FOR* Priority: C More... Uncontrolled type 2 diabetes mellitus with stag*INVALID FOR* Priority: H More... More... More... Heart failure, systolic, acute (HCC) [I50.21] INVALID FOR*01/21/2018 More... Obesity [E66.09] INVALID FOR* Priority: M More... Gout [M10.9] Pacemaker [Z95.0] Priority: D More... Chronic combined systolic and diastolic CHF (co*INVALID FOR* Priority: B More... Elevated troponin [R74.8] INVALID FOR*01/22/2018 Priority: G More... Pulmonary hypertension (HCC) [I27.20] INVALID FOR* Oral thrush [B37.0] INVALID FOR*01/21/2018 Hyponatremia [E87.1] INVALID FOR* Priority: J More... Hyperkalemia [E87.5] INVALID FOR*01/22/2018 Priority: J Chest pain in adult [R07.9] INVALID FOR*02/12/2018 Priority: A More... Acute renal failure superimposed on stage 3 chr*INVALID FOR* Priority: A More... Obesity, Class II, BMI 35-39.9 [E66.9] INVALID FOR* Prescriptions ordered this encounter Disp Refills Start End ISOSORBIDE MONONITRATE ER 60 MG TABL* 30 t* 5 05/19/2018 Class: Med Update Route: ORAL Sig: Take 1 tablet by mouth once daily. Medications Discontinued During This Encounter isosorbide mononitrate ER (IMDUR) 30* 60 t* 1 05/16/2018 05/19/2018 Cmt: This prescription was filled on 05/14/2018. Any refills authorized will be placed on file. Sig: TAKE ONE TABLET BY MOUTH TWICE DAILY Disc: Reason for discontinue is not on file. gabapentin (NEURONTIN) 100 mg capsule 60 c* 0 02/17/2018 05/19/2018 Route: ORAL Sig: Take 1 capsule by mouth twice daily for 30 days. Disc: Reason for discontinue is not on file. melatonin 3 mg tablet 30 t* 0 02/17/2018 05/19/2018 Route: ORAL Sig: Take 1 tablet by mouth daily at bedtime. Disc: Reason for discontinue is not on file. torsemide (DEMADEX) 10 mg tablet 150 * 0 02/18/2018 05/19/2018 Route: ORAL Sig: Take 5 tablets by mouth once daily. Disc: Reason for discontinue is not on file. bumetanide (BUMEX) 2 mg tablet 05/04/2018 05/19/2018 Class: Med Update Route: ORAL Sig: Take 1.5 tablets by mouth twice daily. Hold on dialysis days Disc: Reason for discontinue is not on file. cephALEXin (KEFLEX) 500 mg capsule 05/19/2018 Class: Historical Med Route: ORAL Sig: Take 500 mg by mouth twice daily. Disc: Reason for discontinue is not on file. omeprazole (PRILOSEC) 20 mg capsule 05/19/2018 Class: Historical Med Route: ORAL Sig: Take 20 mg by mouth once daily. Disc: Reason for discontinue is not on file. isosorbide mononitrate ER (IMDUR) 60* 30 t* 5 05/17/2018 05/19/2018 Class: Med Update Route: ORAL Sig: Take 1 tablet by mouth once daily. 05/16 at hospital D/C: taking 30 mg BID Disc: Reason for discontinue is not on file. Encounter Status:Closed by JAMESON KAMARA MD on 05/19/18 PROGRESS Observed: 05/19/2018 Status: COMPLETED Source: [place] 9:45 AM [facility] [place] REPOSITORY HNO ID: [id number] Author: Adriel Mari MA Service: (none) Author Type: (none) Type: Progress Notes Filed: 05/19/2018 9:46 AM Note Text: Notified daughter Octavia VOSS. She will do 60 mg of Imdur. Adriel Mari MA CNPTOUTREACH Observed: 05/19/2018 Status: COMPLETED Source: [place] 12:00 AM [facility] REPOSITORY Patient Outreach (FAMPWS) LUZ BACA ([id number]) 1940 F Date Time Provider Department 05/19/18 REMI KENNEDY (RN) FAMPWS During your visit today, we recorded the following information about you: Remi Kennedy RN 05/19/2018 11:30 AM Signed PRIMARY CARE COORDINATION IN OFFICE VISIT WITH PCP Patient has been identified by name and date of . PCP Assessment/Plan: Reviewed PCP plan with patient using Teach Back Patient having chest pain, rates 7/10 and may be sharper than when in hospital. Notes SOB with pain and if it lasts long enough pt has nausea States has 5-6 episodes per day Patient had episode of chest pain in office, Became pale and SOB PCC Plan of Care: PCC Interventions: TC to Dr. Chip Webb, cardiology, nurse discussed chest pain and asked if MD wants to see pt sooner? States MD isn't back from vacation until 05/24 and he is instructing pts to go to ER Next Office Visit: 05/19/2018 Plan For Next Call: Pt sent to ER by PCP will F/U call when discharged Remi Kennedy RN May 19, 2018 Allergies As of Date: 05/19/2018 Noted Allergy Reaction ASPIRIN 01/20/2018 14 - Other: See Comments Comments: Patient states that she bled out every orifice, sts not allowed to take it at all. Patient states she was bleeding out of nose and mouth after one dose. BACTRIM (SULFAMETHOXAZOLE-TRIMETH*05/17/2017 14 - Other: See Comments Comments: My throat swells up. LATEX 05/17/2017 2 - Rash 9 - Itching Comments: Itching and welts. No wheezing or shortness of breath. PENICILLINS 07/14/2004 2 - Rash 9 - Itching Comments: Tolerated ceftriaxone during 11/2017 admission and cefepime during 12/2017 admission TETRACYCLINE 09/29/2010 2 - Rash 8 - GI Upset Comments: Emesis and diarrhea. 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] Prescriptions as of 05/19/2018 Sig: X ISOSORBIDE MONONITRATE ER 60 * Take 1 tablet by mouth once d* PANTOPRAZOLE 40 MG TABLET,DEL* Take 1 tablet by mouth once d* INSULIN ASPART U-100 100 UNI* Using Sliding Scale: 150-209* SIMVASTATIN 20 MG TABLET Take 2 tablets by mouth every* X CLOPIDOGREL 75 MG TABLET Take 1 tablet by mouth once d* SENNOSIDES 8.6 MG TABLET Take 8.6 mg by mouth once carlos* HYDROCODONE 5 MG-ACETAMINOPHE* Take 1 tablet by mouth every * TRAZODONE 50 MG TABLET Take 50 mg by mouth daily at * TRAMADOL 50 MG TABLET Take 50 mg by mouth every 8 h* ONDANSETRON HCL 4 MG TABLET Take 4 mg by mouth every 8 ho* IPRATROPIUM-ALBUTEROL 0.5 MG-* Inhale 3 mL as instructed leanne* BUDESONIDE 0.5 MG/2 ML SUSPEN* Use 2 mL via nebulizer once d* AMIODARONE 200 MG TABLET Take 1 tablet by mouth once d* CARVEDILOL 3.125 MG TABLET Take 1 tablet by mouth twice * INSULIN GLARGINE (U-100) 100 * Inject 50 Units subcutaneousl* INSULIN GLARGINE (U-100) 100 * Inject 36 Units subcutaneousl* BACITRACIN ZINC 500 UNIT/GRAM* Apply 1 application to affect* NYSTATIN 100,000 UNIT/GRAM TO* Apply 1 application to affect* APIXABAN 5 MG TABLET Take 5 mg by mouth twice janeth* DEXTROMETHORPHAN-GUAIFENESIN * Take 5-10 mL by mouth every 6* NITROGLYCERIN 0.4 MG SUBLINGU* Dissolve 1 tablet under the t* OXYGEN (HOME THERAPY) Inhale 2.5 L/min as instructe* Problem List As Of Date 05/19/2018 Noted Resolved HOCM (hypertrophic obstructive cardiomyopathy) * 01/23/2018 Priority: I More... SVT (supraventricular tachycardia) ([facility]) [I47.1] 01/21/2018 More... Carotid artery disease (HCC) [I77.9] 01/22/2018 CAD (coronary artery disease) [I25.10] Priority: E More... Hypertension [I10] Priority: L More... Hyperlipidemia [E78.5] Pneumonia [J18.9] 10/27/2017 More... COPD (chronic obstructive pulmonary disease) (H* Priority: F More... Sleep apnea [G47.30] Priority: I More... HH (hiatus hernia) [K44.9] 01/21/2018 GERD (gastroesophageal reflux disease) [K21.9] Priority: K More... More... Arthritis [M19.90] Numbness and tingling of right leg [R20.0, R20.* 01/21/2018 Depression [F32.9] Atrial fibrillation (HCC) [I48.91] INVALID FOR* Priority: C More... Uncontrolled type 2 diabetes mellitus with stag*INVALID FOR* Priority: H More... More... More... Heart failure, systolic, acute (HCC) [I50.21] INVALID FOR*01/21/2018 More... Obesity [E66.09] INVALID FOR* Priority: M More... Gout [M10.9] Pacemaker [Z95.0] Priority: D More... Chronic combined systolic and diastolic CHF (co*INVALID FOR* Priority: B More... Elevated troponin [R74.8] INVALID FOR*01/22/2018 Priority: G More... Pulmonary hypertension (HCC) [I27.20] INVALID FOR* Oral thrush [B37.0] INVALID FOR*01/21/2018 Hyponatremia [E87.1] INVALID FOR* Priority: J More... Hyperkalemia [E87.5] INVALID FOR*01/22/2018 Priority: J Chest pain in adult [R07.9] INVALID FOR*02/12/2018 Priority: A More... Acute renal failure superimposed on stage 3 chr*INVALID FOR* Priority: A More... Obesity, Class II, BMI 35-39.9 [E66.9] INVALID FOR* Encounter Status:Closed by REMI KENNEDY on 05/19/18 PROGRESS Observed: 05/18/2018 Status: COMPLETED Source: [place] 1:32 PM [facility] REPOSITORY O ID: [id number] Author: Adriel Mari MA Service: (none) Author Type: (none) Type: Progress Notes Filed: 05/18/2018 1:32 PM Note Text: Aren Tilley [facility] Cardiology Pool ? Can't figure out how to add note. ?Please have her continue Imdur 60 daily. ?It does not work as well when taken 30 bid. Aren Cardona MD 12 LEAD ELECTROCARDIOGRAM Observed: 05/17/2018 Status: F Source: [place] 3:26 PM [facility] REPOSITORY [facility] Cardiovascular Services [address] [place] [address] 12 Lead EKG 05/13/18 0535 MR#: [id number] Acct: [id number] Name: LUZ BACA Rep #: [id number] : 1940 77 From: Ayde Butt MD Attending Dr: Isabela Ladd DO Status: DIS IN Ordering Dr: Jesse Hunter MD Date: 05/13/18 Location: [facility] Sex: F C Admitted: 05/11/18 Test Reason : PRE HEART CATH Blood Pressure : / mmHG Vent. Rate : 071 BPM Atrial Rate : 071 BPM P-R Int : 000 ms QRS Dur : 204 ms QT Int : 540 ms P-R-T Axes : 000 262 092 degrees QTc Int : 586 ms Electronic ventricular pacemaker Occasional PVCs Reconfirmed by KEARA COLLIER, AYDE ([id number]), continuity editor JASON ALDANA ([id number]) on 05/17/2018 3:26:26 PM Referred By: Luis Wise Confirmed By:AYED BUTT MD 05/17/18 1526 Date Ayde Butt MD CC: Mook Kamara MD; Jesse Hunter MD; Isabela Ladd DO; Luis Wise MD Signed PROGRESS Observed: 05/17/2018 Status: COMPLETED Source: [place] 11:21 AM [facility] REPOSITORY HNO ID: [id number] Author: Jameson Adams) Koffi Service: (none) Author Type: Physician Type: Progress Notes Filed: 05/17/2018 11:21 AM Note Text: Reviewed. Orders placed. PROGRESS Observed: 05/17/2018 Status: COMPLETED Source: [place] 8:37 AM [facility] REPOSITORY HNO ID: [id number] Author: Remi OsheaRn) Brent Service: (none) Author Type: Registered Nurse Type: Progress Notes Filed: 05/17/2018 9:18 AM Note Text: TRANSITION CARE MANAGEMENT (TCM) INITIAL CONTACT Provider Action/FYI: Please File Medication Updates Patient having occasional slight chest pressure, has not taken NTG. Instructed pt to take NTG, if chest pressure continues call supervisor porcelain department, if chest pressure increases go to ER Slight SOB, less than before hospitalization Now on sliding scale insulin, states most times only taking 1 unit. Initial contact with patient post discharge, spoke to Daughter, Octavia and patient. Patient identified by name and . SUMMARY: -Pt discharged from [facility] on 05/13. -Follow up appointment on 05/19. Appt with Dr. Cardona 05/24 -Medication review done with daughter. -Admitted for: #1 non-STEMI #2 end-stage renal disease requiring dialysis #3 type 2 diabetes-continue present treatment #4 chronic hypoxic respiratory failure #5 chronic atrial fibrillation with paced rhythm #6 chronic obstructive pulmonary disease #7 hypertension #8 hyperlipidemia #9 coronary artery disease #10 severe pulmonary hypertension CONCERNS: Patient having occasional slight chest pressure, has not taken NTG. Instructed pt to take NTG, if chest pressure continues call supervisor porcelain department, if chest pressure increases go to ER Slight SOB, less than before hospitalization Now on sliding scale insulin, states most times only taking 1 unit. NEW MEDICATIONS: Clopidogrel Bisulfate [Plavix] 75 mg PO DAILY #30 tab MEDICATION CHANGES: Isosorbide 60 mg daily Pt now taking 30 mg BID Simvastatin 40 mg Daily Pt taking 20 mg 2 tablets Daily Novolog insulin See Medications Protonix 40 mg Daily MEDS HELD/DISCONTINUED: omeprazole (PRILOSEC) 20 mg capsule Sig: Take 20 mg by mouth once daily. BRIEF HOSPITAL COURSE: The patient is a 77 year old F who was seen in the emergency room at [facility] with chief complaint of precordial chest pain with nausea and diaphoresis during dialysis. ER labs showed elevated troponin of 0.71, EKG- paced rhythm, creatinine-elevated. Admitted to PCU, cardiac enzymes were cycled; trended downward but still elevated. Pt seen in consultation by cardiology and nephrology. Echocardiogram showed a normal ejection fraction but severe pulmonary hypertension. Pt underwent dialysis during hospitalization Cardiac catheterization showed no evidence of occlusive coronary disease. On 05/13/18, pt felt to be in stable condition for discharge home Remi Kennedy RN DISCHARGE SUMMARY Observed: 05/16/2018 Status: F Source: [place] 9:45 AM [facility] REPOSITORY [facility] Medical Records Department [address] [place] [address] Discharge Summary 05/16/18 0929 MR#: [id number] Acct: [id number] Name: LUZ BACA Rep #: [id number] : 1940 77 From: Isabela Ladd DO PCP: Mook Kamara MD Status: DIS IN Y Location: PCU [id number] Discharge Date and Diagnosis Date of Admission: 05/11/18 - Primary Discharge Diagnosis 1 non-STEMI #2 end-stage renal disease requiring dialysis #3 type 2 diabetes-continue present treatment #4 chronic hypoxic respiratory failure #5 chronic atrial fibrillation with paced rhythm #6 chronic obstructive pulmonary disease #7 hypertension #8 hyperlipidemia #9 coronary artery disease #10 severe pulmonary hypertension - Secondary Discharge Diagnosis Chronic Problems Hypertension (Chronic) Hyperlipidemia (Chronic) Type 2 diabetes mellitus (Chronic) COPD (chronic obstructive pulmonary disease) (Chronic) Chronic hypoxemic respiratory failure (Chronic) Chronic anticoagulation (Chronic) Atrial fibrillation (Chronic) Coronary artery disease (Chronic) 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) End stage renal disease (Chronic) Diabetic neuropathy (Chronic) Peripheral vascular disease (Chronic) Venous insufficiency of both lower extremities (Chronic) Congestive heart failure (Chronic) History of coronary artery bypass graft (Chronic) 2014 History of PTCA (Chronic) 6 stents per patient Hospital Course and Treatment Procedures: 2-D Echocardiogram, Cardiac catheterization Summary of Care Provided: The patient is a 77 year old F who was seen in the emergency room at [facility] with chief complaint of precordial chest pain with nausea and diaphoresis during dialysis. Workup in the emergency room included labs which showed an elevated troponin of 0.71, EKG revealed a paced rhythm, creatinine was elevated. Patient was admitted to PCU, cardiac enzymes were cycled they trended downward but were still elevated. Patient was seen in consultation by cardiology and nephrology. Echocardiogram was obtained which showed a normal ejection fraction but severe pulmonary hypertension. Patient underwent dialysis during her hospitalization, she also underwent a cardiac catheterization which showed no evidence of occlusive coronary disease. On 05/13/18, patient was seen and examined and felt to be in stable condition for discharge home Discharge Activity: Return to Normal Activity Weight Bearing Status: Full weight bearing Home Medications: Medications to take at Discharge Budesonide/Formoterol 160/4.5 [Symbicort 160/4.5 Mcg Inhaler (SP)] 2 puff INHALATION BID 12/06/17 Isosorbide Mononitrate [Isosorbide Mononitrate ER] 60 mg PO DAILY 12/06/17 Nitroglycerin 0.4 mg SL Q5M PRN 12/06/17 Simvastatin 40 mg PO QHS 12/06/17 Carvedilol [Coreg (Beta Lenny)] 3.125 mg PO BID 04/21/18 Hydrocodone/Acetaminophen [[place] 5-325 Tablet] 1 tablet PO TID PRN 04/21/18 Insulin Aspart [Novolog Flexpen] 0 - 100 units SC TIDCM #0 04/21/18 Tramadol HCl [Ultram] 50 mg PO Q6H 04/21/18 Trazodone HCl 100 mg PO QHS 04/21/18 Insulin Glargine,Hum.rec.anlog [Lantus] 36 unit SQ QHS 04/22/18 Insulin Glargine,Hum.rec.anlog [Lantus] 50 unit SQ BREAKFAST 04/22/18 Amiodarone HCl 200 mg PO DAILY 05/11/18 Omeprazole 20 mg PO DAILY 05/11/18 Ondansetron HCl [Zofran] 4 mg PO Q8H PRN PRN 05/11/18 Sennosides [Senna] 8.6 mg PO QHS PRN PRN 05/11/18 Apixaban [Eliquis] 5 mg PO BID #0 05/13/18 Clopidogrel Bisulfate [Plavix] 75 mg PO DAILY #30 tab 05/13/18 Following Prescrptions Were Given to Patient: Clopidogrel Bisulfate [Plavix] 75 mg PO DAILY #30 tab Primary Care Physician: Mook Kamara MD [Primary Care Provider] - Please follow up with your Primary Care Physician in: in 1- 2 weeks Disposition: Home Minutes spent on discharge:: 35 Patient Condition:: Stable Medical Necessity - Tobacco Use Smoking Status: Former smoker Tobacco Use: Cigarettes Meaningful Use Info Meaningful Use Diagnoses (Choose all that apply): AMI - AMI Aspirin given w/in 24hrs of arrival?: No Reason no aspirin w/in 24hrs of arrival?: Allergy ASA at discharge?: No Reason ASA not ordered:: Allergy Statins at discharge?: Yes Damion/ARB at discharge?: No Reason Damion/ARB not ordered:: Not indicated Beta Lenny at discharge?: Yes Done w/ Acute NE measure.: Yes Code Visit Inpatient E AND M: [id number] Disch Hosp 05/16/18 0945 <Electronically signed by Isabela Ladd DO> Date Isabela Ladd DO Cosigner Signature (if applicable): Date CC: Mook Kamara MD; Isabela Ladd DO Signed CNPTOUTREACH Observed: 05/16/2018 Status: COMPLETED Source: [place] 12:00 AM [facility] REPOSITORY [facility] BACALUZ NAVARRO ([id number]) 1940 F Date Time Provider Department 05/16/18 REMI KENNEDYRN) NAVIN[facility]WS During your visit today, we recorded the following information about you: Remi Kennedy RN 05/17/2018 9:18 AM Signed TRANSITION CARE MANAGEMENT (TCM) INITIAL CONTACT Provider Action/FYI: Please File Medication Updates Patient having occasional slight chest pressure, has not taken NTG. Instructed pt to take NTG, if chest pressure continues call supervisor porcelain department, if chest pressure increases go to ER Slight SOB, less than before hospitalization Now on sliding scale insulin, states most times only taking 1 unit. Initial contact with patient post discharge, spoke to Daughter, Octavia and patient. Patient identified by name and . SUMMARY: -Pt discharged from [facility] on 05/13. -Follow up appointment on 05/19. Appt with Dr. Cardona 05/24 -Medication review done with daughter. -Admitted for: #1 non-STEMI #2 end-stage renal disease requiring dialysis #3 type 2 diabetes-continue present treatment #4 chronic hypoxic respiratory failure #5 chronic atrial fibrillation with paced rhythm #6 chronic obstructive pulmonary disease #7 hypertension #8 hyperlipidemia #9 coronary artery disease #10 severe pulmonary hypertension CONCERNS: Patient having occasional slight chest pressure, has not taken NTG. Instructed pt to take NTG, if chest pressure continues call supervisor porcelain department, if chest pressure increases go to ER Slight SOB, less than before hospitalization Now on sliding scale insulin, states most times only taking 1 unit. NEW MEDICATIONS: Clopidogrel Bisulfate [Plavix] 75 mg PO DAILY #30 tab MEDICATION CHANGES: Isosorbide 60 mg daily Pt now taking 30 mg BID Simvastatin 40 mg Daily Pt taking 20 mg 2 tablets Daily Novolog insulin See Medications Protonix 40 mg Daily MEDS HELD/DISCONTINUED: omeprazole (PRILOSEC) 20 mg capsule Sig: Take 20 mg by mouth once daily. BRIEF HOSPITAL COURSE: The patient is a 77 year old F who was seen in the emergency room at [facility] with chief complaint of precordial chest pain with nausea and diaphoresis during dialysis. ER labs showed elevated troponin of 0.71, EKG- paced rhythm, creatinine-elevated. Admitted to PCU, cardiac enzymes were cycled; trended downward but still elevated. Pt seen in consultation by cardiology and nephrology. Echocardiogram showed a normal ejection fraction but severe pulmonary hypertension. Pt underwent dialysis during hospitalization Cardiac catheterization showed no evidence of occlusive coronary disease. On 05/13/18, pt felt to be in stable condition for discharge home ALLYSON Buck MD 05/17/2018 11:21 AM Signed Reviewed. Orders placed. Adriel Mari MA 05/18/2018 1:32 PM Signed Aren Tilley [facility] Cardiology Pool ? Can't figure out how to add note. ?Please have her continue Imdur 60 daily. ?It does not work as well when taken 30 bid. MD Adriel Philip MA 05/19/2018 9:46 AM Signed Notified daughter Octavia VOSS. She will do 60 mg of Imdur. Adriel Mari MA Allergies As of Date: 05/16/2018 Noted Allergy Reaction ASPIRIN 01/20/2018 14 - Other: See Comments Comments: Patient states that she bled out every orifice, sts not allowed to take it at all. Patient states she was bleeding out of nose and mouth after one dose. BACTRIM (SULFAMETHOXAZOLE-TRIMETH*05/17/2017 14 - Other: See Comments Comments: My throat swells up. LATEX 05/17/2017 2 - Rash 9 - Itching Comments: Itching and welts. No wheezing or shortness of breath. PENICILLINS 07/14/2004 2 - Rash 9 - Itching Comments: Tolerated ceftriaxone during 11/2017 admission and cefepime during 12/2017 admission TETRACYCLINE 09/29/2010 2 - Rash 8 - GI Upset Comments: Emesis and diarrhea. ATORVASTATIN 05/17/2017 2 - Rash CODEINE 05/17/2017 14 - Other: See Comments Comments: Numbness DILAUDID (HYDROMORPHONE (BULK)) 05/17/2017 1 - Mental Status Change MEPERIDINE 07/14/2004 PENTAZOCINE 07/14/2004 PIOGLITAZONE 05/17/2017 16 - Unknown PROPOXYPHENE 07/14/2004 Date Reviewed: 05/03/2018 Reviewed by: Sohail Longoria Ma - Fully Assessed Reason for Visit: Transition Of Care [4074] Primary Visit Diagnosis:Uncontrolled type 2 diabetes mellitus with stage 3 chronic kidney disease, with long- term current use of insulin (HCC) [E11.22, E11.65, N18.3, Z79.4] Other Visit Diagnoses:Coronary artery disease, angina presence unspecified, unspecified vessel or lesion type, unspecified whether rincon or transplanted heart [I25.10] Gastroesophageal reflux disease, esophagitis presence not specified [K21.9] Hypertension [I10] Atrial fibrillation, unspecified type (HCC) [I48.91] Hyperlipidemia, unspecified hyperlipidemia type [E78.5] Order(s):pantoprazole DR (PROTONIX) 40 mg tabletTake 1 tablet by mouth once daily.Disp: Rfl: insulin aspart U-100 (NOVOLOG FLEXPEN U-100 INSULIN) 100 unit/mL inpnUsing Sliding Scale: 150-209 1 unit, 210-269 2 units, 270-329 3 units, 330-389 4 units, 390-449 5 unitsDisp: Rfl: simvastatin (ZOCOR) 20 mg tabletTake 2 tablets by mouth every morning.Disp: Rfl: isosorbide mononitrate ER (IMDUR) 60 mg 24 hr tabletTake 1 tablet by mouth once daily. 05/16 at hospital D/C: taking 30 mg BIDDisp: 30 tabletRfl: 5 clopidogrel (PLAVIX) 75 mg tabletTake 1 tablet by mouth once daily.Disp: 30 tabletRfl: 11 Prescriptions as of 05/16/2018 Sig: SENNOSIDES 8.6 MG TABLET Take 8.6 mg by mouth once carlos* HYDROCODONE 5 MG-ACETAMINOPHE* Take 1 tablet by mouth every * TRAZODONE 50 MG TABLET Take 50 mg by mouth daily at * TRAMADOL 50 MG TABLET Take 50 mg by mouth every 8 h* ONDANSETRON HCL 4 MG TABLET Take 4 mg by mouth every 8 ho* IPRATROPIUM-ALBUTEROL 0.5 MG-* Inhale 3 mL as instructed leanne* AMIODARONE 200 MG TABLET Take 1 tablet by mouth once d* CARVEDILOL 3.125 MG TABLET Take 1 tablet by mouth twice * INSULIN GLARGINE (U-100) 100 * Inject 50 Units subcutaneousl* INSULIN GLARGINE (U-100) 100 * Inject 36 Units subcutaneousl* BACITRACIN ZINC 500 UNIT/GRAM* Apply 1 application to affect* NYSTATIN 100,000 UNIT/GRAM TO* Apply 1 application to affect* APIXABAN 5 MG TABLET Take 5 mg by mouth twice janeth* NITROGLYCERIN 0.4 MG SUBLINGU* Dissolve 1 tablet under the t* OXYGEN (HOME THERAPY) Inhale 2.5 L/min as instructe* PANTOPRAZOLE 40 MG TABLET,DEL* Take 1 tablet by mouth once d* INSULIN ASPART U-100 100 UNI* Using Sliding Scale: 150-209* SIMVASTATIN 20 MG TABLET Take 2 tablets by mouth every* ISOSORBIDE MONONITRATE ER 60 * Take 1 tablet by mouth once d* CLOPIDOGREL 75 MG TABLET Take 1 tablet by mouth once d* BUMETANIDE 2 MG TABLET Take 1.5 tablets by mouth twi* CEPHALEXIN 500 MG CAPSULE Take 500 mg by mouth twice da* OMEPRAZOLE 20 MG CAPSULE,COY* Take 20 mg by mouth once janeth* BUDESONIDE 0.5 MG/2 ML SUSPEN* Use 2 mL via nebulizer once d* GABAPENTIN 100 MG CAPSULE Take 1 capsule by mouth twice* MELATONIN 3 MG TABLET Take 1 tablet by mouth daily * TORSEMIDE 10 MG TABLET Take 5 tablets by mouth once * X ISOSORBIDE MONONITRATE ER 60 * Take 1 tablet by mouth once d* DEXTROMETHORPHAN-GUAIFENESIN * Take 5-10 mL by mouth every 6* Problem List As Of Date 05/16/2018 Noted Resolved HOCM (hypertrophic obstructive cardiomyopathy) * 01/23/2018 Priority: I More... SVT (supraventricular tachycardia) (HCC) [I47.1] 01/21/2018 More... Carotid artery disease (HCC) [I77.9] 01/22/2018 CAD (coronary artery disease) [I25.10] Priority: E More... Hypertension [I10] Priority: L More... Hyperlipidemia [E78.5] Pneumonia [J18.9] 10/27/2017 More... COPD (chronic obstructive pulmonary disease) (H* Priority: F More... Sleep apnea [G47.30] Priority: I More... HH (hiatus hernia) [K44.9] 01/21/2018 GERD (gastroesophageal reflux disease) [K21.9] Priority: K More... More... Arthritis [M19.90] Numbness and tingling of right leg [R20.0, R20.* 01/21/2018 Depression [F32.9] Atrial fibrillation (HCC) [I48.91] INVALID FOR* Priority: C More... Uncontrolled type 2 diabetes mellitus with stag*INVALID FOR* Priority: H More... More... More... Heart failure, systolic, acute (HCC) [I50.21] INVALID FOR*01/21/2018 More... Obesity [E66.09] INVALID FOR* Priority: M More... Gout [M10.9] Pacemaker [Z95.0] Priority: D More... Chronic combined systolic and diastolic CHF (co*INVALID FOR* Priority: B More... Elevated troponin [R74.8] INVALID FOR*01/22/2018 Priority: G More... Pulmonary hypertension (HCC) [I27.20] INVALID FOR* Oral thrush [B37.0] INVALID FOR*01/21/2018 Hyponatremia [E87.1] INVALID FOR* Priority: J More... Hyperkalemia [E87.5] INVALID FOR*01/22/2018 Priority: J Chest pain in adult [R07.9] INVALID FOR*02/12/2018 Priority: A More... Acute renal failure superimposed on stage 3 chr*INVALID FOR* Priority: A More... Obesity, Class II, BMI 35-39.9 [E66.9] INVALID FOR* Prescriptions ordered this encounter Disp Refills Start End PANTOPRAZOLE 40 MG TABLET,DELAYED RE* 05/17/2018 Class: Med Update Route: ORAL Sig: Take 1 tablet by mouth once daily. INSULIN ASPART U-100 100 UNIT/ML FRAZIER* 05/17/2018 Class: Med Update Sig: Using Sliding Scale: 150-209 1 unit, 210-269 2 units, 270-329 3 units, 330-389 4 units, 390-449 5 units SIMVASTATIN 20 MG TABLET 05/17/2018 Class: Med Update Route: ORAL Sig: Take 2 tablets by mouth every morning. ISOSORBIDE MONONITRATE ER 60 MG TABL* 30 t* 5 05/17/2018 Class: Med Update Route: ORAL Sig: Take 1 tablet by mouth once daily. 05/16 at hospital D/C: taking 30 mg BID CLOPIDOGREL 75 MG TABLET 30 t* 11 05/17/2018 Class: Med Update Route: ORAL Sig: Take 1 tablet by mouth once daily. Medications Discontinued During This Encounter pantoprazole DR (PROTONIX) 40 mg tab* 05/17/2018 Class: Historical Med Route: ORAL Sig: Take 40 mg by mouth twice daily. Disc: Reason for discontinue is not on file. insulin aspart U-100 (NOVOLOG FLEXPE* 05/17/2018 Class: Historical Med Route: SUBCUTANEOUS Sig: Inject 12 Units subcutaneously three times daily with meals. Disc: Reason for discontinue is not on file. simvastatin (ZOCOR) 20 mg tablet 05/04/2018 05/17/2018 Class: Med Update Route: ORAL Sig: Take 1 tablet by mouth every morning. Disc: Reason for discontinue is not on file. Disposition: Return in about 3 days (around 05/19/2018). Follow-up and Disposition History Recorded Encounter Status:Closed by REMI KENNEDY on 05/17/18 DISCHARGE INSTRUCTION Observed: 05/13/2018 Status: F Source: [place] 5:48 PM [facility] REPOSITORY [facility] Medical Records Department [address] [place] [address] Instructions for Home/Discharge Instructions 05/13/18 1707 MR#: [id number] Acct: [id number] Name: LUZ BACA Rep #: [id number] : 1940 77 From: Isabela Ladd DO PCP: Mook Kamara MD Status: ADM IN ADDENDUM by Isabela Ladd DO on 05/13/18 at 1748 Additional med: Plavix 75 mg daily Date Isabela Ladd DO cc: oMok Kamara MD; Jesse Hunter MD; Ynes De La Torre MD * Signed - Discharge Diagnoses Current Active Problems: Current Active and Chronic Problems NSTEMI (non-ST elevated myocardial infarction) (Acute) You will use the following diet at home:: Calorie/Carbohydrate Controlled (specify 1200, 1400, etc) - 1800 eddie Your food should be the consistency of: Regular Your liquids should be the consistency of: Regular/Thin Discharge Activity: Return to Normal Activity Weight Bearing Status: Full weight bearing Allergies/Adverse Reactions: Allergies latex Allergy (Verified 05/11/18 13:30) Anaphylaxis meperidine [From Demerol] Allergy (Verified 05/11/18 13:30) Hives Penicillins Allergy (Verified 05/11/18 13:30) Hives Tetracyclines Allergy (Verified 05/11/18 13:30) Hives aspirin Adverse Reaction (Verified 05/11/18 13:30) Unknown atorvastatin Adverse Reaction (Verified 05/11/18 13:30) Unknown codeine Adverse Reaction (Verified 05/11/18 13:30) Unknown hydromorphone [From Dilaudid] Adverse Reaction (Verified 05/11/18 13:30) Unknown pentazocine Adverse Reaction (Verified 05/11/18 13:30) Unknown pioglitazone Adverse Reaction (Verified 05/11/18 13:30) Unknown propoxyphene Adverse Reaction (Verified 05/11/18 13:30) Unknown sulfamethoxazole [From Bactrim] Adverse Reaction (Verified 05/11/18 13:30) Unknown trimethoprim [From Bactrim] Adverse Reaction (Verified 05/11/18 13:30) Unknown Medications to take at Discharge Budesonide/Formoterol 160/4.5 [Symbicort 160/4.5 Mcg Inhaler (SP)] 2 puff INHALATION BID 12/06/17 Isosorbide Mononitrate [Isosorbide Mononitrate ER] 60 mg PO DAILY 12/06/17 Nitroglycerin 0.4 mg SL Q5M PRN 12/06/17 Simvastatin 40 mg PO QHS 12/06/17 Carvedilol [Coreg (Beta Lenny)] 3.125 mg PO BID 04/21/18 Hydrocodone/Acetaminophen [[place] 5-325 Tablet] 1 tablet PO TID PRN 04/21/18 Insulin Aspart [Novolog Flexpen] 0 - 100 units SC TIDCM #0 04/21/18 Tramadol HCl [Ultram] 50 mg PO Q6H 04/21/18 Trazodone HCl 100 mg PO QHS 04/21/18 Insulin Glargine,Hum.rec.anlog [Lantus] 36 unit SQ QHS 04/22/18 Insulin Glargine,Hum.rec.anlog [Lantus] 50 unit SQ BREAKFAST 04/22/18 Amiodarone HCl 200 mg PO DAILY 05/11/18 Omeprazole 20 mg PO DAILY 05/11/18 Ondansetron HCl [Zofran] 4 mg PO Q8H PRN PRN 05/11/18 Sennosides [Senna] 8.6 mg PO QHS PRN PRN 05/11/18 Apixaban [Eliquis] 5 mg PO BID #0 05/13/18 Primary Care Physician: Mook Kamara MD [Primary Care Provider] - Please follow up with your Primary Care Physician in: in 1- 2 weeks Test Results: Test results from this visit will be discussed in further detail at your follow-up appointment, if applicable. 05/13/18 1708 <Electronically signed by Isabela Ladd DO> Date Isabela Ladd DO CC: Mook Kamara MD; Jesse Hunter MD; Ynes De La Torre MD 12 LEAD ELECTROCARDIOGRAM Observed: 05/13/2018 Status: F Source: [place] 1:48 PM [facility] REPOSITORY [facility] Cardiovascular Services [address] [place] [id number] 12 Lead EKG 05/11/18 1741 MR#: [id number] Acct: [id number] Name: BACALUZ Franco Rep #: [id number] : 1940 77 From: Ayde Butt MD Attending Dr: Isabela Ladd DO Status: ADM IN Ordering Dr: Clemente Ji DO Date: 05/11/18 Location: [facility] Sex: F C Admitted: 05/11/18 Test Reason : CP ADMISSION Blood Pressure : / mmHG Vent. Rate : 078 BPM Atrial Rate : 078 BPM P-R Int : 000 ms QRS Dur : 182 ms QT Int : 504 ms P-R-T Axes : 000 252 092 degrees QTc Int : 574 ms Electronic ventricular pacemaker Occasional PVCs Confirmed by AYDE BUTT MD ([id number]), continuity editor JASNO ALDANA ([id number]) on 05/13/2018 1:47:26 PM Referred By: Luis Wise Confirmed By:AYDE BUTT MD 05/13/18 1347 Date Ayde Butt MD CC: Mook Kamara MD; Clemente Ji DO; Isabela Ladd DO; Luis Wise MD Signed 12 LEAD ELECTROCARDIOGRAM Observed: 05/13/2018 Status: F Source: [place] 1:35 PM [facility] REPOSITORY [facility] Cardiovascular Services [address] [place] [address] 12 Lead EKG 05/11/18 1335 MR#: [id number] Acct: [id number] Name: LUZ BACA Rep #: [id number] : 1940 77 From: yAde Butt MD Attending Dr: Isabela Ladd DO Status: ADM IN Ordering Dr: Luis Wise MD Date: 05/11/18 Location: [facility] Sex: F C Admitted: 05/11/18 Test Reason : Blood Pressure : / mmHG Vent. Rate : 078 BPM Atrial Rate : 078 BPM P-R Int : 000 ms QRS Dur : 186 ms QT Int : 492 ms P-R-T Axes : 000 255 098 degrees QTc Int : 560 ms Electronic ventricular pacemaker Occasional PVCs Confirmed by AYDE BUTT MD ([id number]), continuity editor JASON ALDANA ([id number]) on 05/13/2018 1:34:43 PM Referred By: Luis Wise Confirmed By:AYDE BUTT MD 05/13/18 4728 Date Ayde Butt MD CC: Mook Kamara MD; Isabela Ladd DO; Luis Wise MD Signed BEDSIDE GLUCOSE Collected: 05/13/2018 Status: F Source: [place] 11:36 AM [facility] REPOSITORY TYPE CODE TESTS RESULT OUT OF REFERENCE UNITS RANGE LAB L501.080 70-110 mg/dL High BEDSIDE GLU 125 Result Comment: MANAGEMENT OF PATIENT CARE PER NURSING PROTOCOL Performed By: #### L501.080 #### [facility] Laboratory Point of Care [address] [place], [place] [id number] BEDSIDE GLUCOSE Collected: 05/13/2018 Status: F Source: [place] 6:50 AM [facility] REPOSITORY TYPE CODE TESTS RESULT OUT OF REFERENCE UNITS RANGE LAB L501.080 70-110 mg/dL High BEDSIDE GLU 136 Result Comment: MANAGEMENT OF PATIENT CARE PER NURSING PROTOCOL Performed By: #### L501.080 #### [facility] Laboratory Point of Care [address] [place] [address]. [place] [address] PROTHROMBIN TIME W/INR Collected: 05/13/2018 Status: F Source: [place] 5:06 AM [facility] REPOSITORY TYPE CODE TESTS RESULT OUT OF RANGE REFERENCE UNITS LAB L300.4150 11.7-14.9 SECONDS High PROTIME 20.3 LAB L300.4200 Normal INR 1.7 Performed By: #### L300.3900, L300.4310, L100.0500 #### [facility] [address] [facility] [facility] [address] PARTIAL THROMBOPLAST Collected: 05/13/2018 Status: F Source: [place] TIME 5:06 AM [facility] REPOSITORY TYPE CODE TESTS RESULT OUT OF RANGE REFERENCE UNITS LAB L300.4310 24.1-36.2 Seconds Normal PTT 36.0 Performed By: #### L300.3900, L300.4310, L100.0500 #### [facility] [address] [facility] [address] [facility] [address] CBC-COMPLETE BLOOD CNT Collected: 05/13/2018 Status: F Source: [place] NO DIFF 5:06 AM [facility] REPOSITORY TYPE CODE TESTS RESULT OUT OF RANGE REFERENCE UNITS LAB L100.1000 4.4-11.0 K/mm3 Normal WBC 5.0 LAB L100.1200 4.2-5.4 M/mm3 Low RBC 3.67 LAB L100.1300 12.0-15.0 g/dl Low HGB 11.4 LAB L100.1400 37-47 % Low HCT 36.0 LAB L100.1500 81-99 fL Normal MCV 98.1 LAB L100.1600 27.0-32.0 pg Normal MCH 31.1 LAB L100.1700 32-36 g/gl Low MCHC 31.7 LAB L100.1810 11.6-14.6 % High RDW CV 14.7 LAB L100.1820 35.1-43.9 fl High RDW SD 49.9 LAB L100.1900 150-450 K/mm3 Low PLT 121 LAB L100.2000 6.2-12.0 fl Normal MPV 9.8 Performed By: #### L300.3900, L300.4310, L100.0500 #### [facility] [address] [place], [place], [address] BASIC METABOLIC Collected: 05/13/2018 Status: F Source: [place] PROFILE (BMP) 5:06 AM [facility] REPOSITORY TYPE CODE TESTS RESULT OUT OF RANGE REFERENCE UNITS LAB L501.0100 74-106 mg/dL High GLU 120 Result Comment: Fasting Glucose result from 100 to 125 mg/dL suggests IMPAIRED HOMEOSTASIS per A.D.A. criteria. Please note revised GLUCOSE reference range effective 2017. LAB L501.1000 7-18 mg/dL High BUN 29 LAB L501.1100 0.55-1.02 mg/dL High CREAT,SERUM 3.85 Result Comment: The validity of the calculated GFR AND GFRAA in patients over 70 years has not been determined. Clinical correlation is essential. LAB L501.1110 >60 mL/min Low EST GFR 12 Result Comment: Non- GFR Calc LAB L501.1115 >60 mL/min Low EST GFR - AA 15 Result Comment: GFR Calc LAB L501.1255 ml/min Normal Estimated CRCL 12.54 LAB L501.1300 10-20 RATIO Low BUN/CRE 7.5 LAB L501.2200 8.5-10 mg/dL Normal .1 CA 8.9 LAB L501.5300 136-14 mmol/L Normal 5 NA 140 LAB L501.5600 3.5-5. mmol/L Normal 1 K 3.7 LAB L501.5900 98-107 mmol/L Normal CL 101 LAB L501.6100 21.0-3 mmol/L Normal 2.0 CO2 30.0 LAB L501.6200 5-15 Normal GAP 9 Performed By: #### L500.2500 #### [facility] [address] [place], [address] BEDSIDE GLUCOSE Collected: 05/12/2018 Status: F Source: [place] 9:21 PM [facility] REPOSITORY TYPE CODE TESTS RESULT OUT OF REFERENCE UNITS RANGE LAB L501.080 70-110 mg/dL High BEDSIDE GLU 217 Result Comment: MANAGEMENT OF PATIENT CARE PER NURSING PROTOCOL Performed By: #### L501.080 #### [facility] Point of Care [address] [place] [address] BEDSIDE GLUCOSE Collected: 05/12/2018 Status: F Source: [place] 4:09 PM [facility] REPOSITORY TYPE CODE TESTS RESULT OUT OF REFERENCE UNITS RANGE LAB L501.080 70-110 mg/dL High BEDSIDE GLU 148 Result Comment: MANAGEMENT OF PATIENT CARE PER NURSING PROTOCOL Performed By: #### L501.080 #### [facility] Point of Care [address] [place] [address] CONSULTATION Observed: 05/12/2018 Status: F Source: [place] 11:06 AM [facility] REPOSITORY [facility] Medical Records Department [address] [place] [address] Consultation 05/12/18 1053 MR#: [id number] Acct: [id number] Name: LUZ BACA Rep #: [id number] : 1940 77 From: Jesse Hunter MD PCP: Mook Kamara MD Status: ADM IN Location: [place] [address] Problem List (1) Hypertension Status: Chronic (2) Hyperlipidemia Status: Chronic (3) Atrial fibrillation Status: Chronic (4) Coronary artery disease Status: Chronic (5) Presence of combination internal cardiac defibrillator (ICD) and pacemaker Status: Chronic (6) Peripheral vascular disease Status: Chronic (7) History of coronary artery bypass graft Status: Chronic Comment: 2013 (8) History of PTCA Status: Chronic Comment: 6 stents per patient Reason for Consult Date of Consultation: 05/12/18 Reason for Consultation: Chest pain, coronary disease, status post CABG, hypertension, end-stage renal disease on hemodialysis, COPD, atrial fibrillation History of Present Illness: The patient is a 77 year old F former patient of Dr. Fam'jesús with a history of hypertension, hypercholesterolemia, diabetes, atrial fibrillation on Eliquis therapy, coronary artery disease status post 9 stents, last catheterization was around 5 years ago, ischemic cardiomyopathy status post AICD therapy, end-stage renal disease on hemodialysis. The patient developed recurrent substernal chest pain yesterday afternoon which did not appear to improve with sublingual nitroglycerin. The patient's pain wax and wane off and on for several hours and while at dialysis yesterday developed substernal chest pain as well. She was brought emergently to the [facility] ER where a EKG showed atrial fibrillation with paced ventricular response alternating with ventricular bigeminy and a right bundle branch pattern. No acute changes were noted. Patient's initial troponin was 0.716, decreased down to 0.63 today. Of note she has had a recent admission on 04/22/18 with similar recurrent chest pain symptoms, abnormal troponins and underwent a non-walking nuclear stress test which apparently was negative for inducible ischemia but did show evidence of anterior apical and inferior and infarct. Patient underwent a 2D echo with Doppler today which demonstrates severe pulmonary hypertension with an RVSP of over 70 mmHg, intact mild LV dysfunction with an EF around 55%, consistent with her nuclear ejection fraction of 49%. T. [] Past Medical History Allergies/Adverse Reactions: Allergies latex Allergy (Verified 05/11/18 13:30) Anaphylaxis meperidine [From Demerol] Allergy (Verified 05/11/18 13:30) Hives Penicillins Allergy (Verified 05/11/18 13:30) Hives Tetracyclines Allergy (Verified 05/11/18 13:30) Hives aspirin Adverse Reaction (Verified 05/11/18 13:30) Unknown atorvastatin Adverse Reaction (Verified 05/11/18 13:30) Unknown codeine Adverse Reaction (Verified 05/11/18 13:30) Unknown hydromorphone [From Dilaudid] Adverse Reaction (Verified 05/11/18 13:30) Unknown pentazocine Adverse Reaction (Verified 05/11/18 13:30) Unknown pioglitazone Adverse Reaction (Verified 05/11/18 13:30) Unknown propoxyphene Adverse Reaction (Verified 05/11/18 13:30) Unknown sulfamethoxazole [From Bactrim] Adverse Reaction (Verified 05/11/18 13:30) Unknown trimethoprim [From Bactrim] Adverse Reaction (Verified 05/11/18 13:30) Unknown Home Medications: Ambulatory Orders Medication Instructions Recorded Past Medical History (Chronic Problems): Chronic Problems Hypertension (Chronic) Hyperlipidemia (Chronic) Type 2 diabetes mellitus (Chronic) COPD (chronic obstructive pulmonary disease) (Chronic) Chronic hypoxemic respiratory failure (Chronic) Chronic anticoagulation (Chronic) Atrial fibrillation (Chronic) Coronary artery disease (Chronic) 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) End stage renal disease (Chronic) Diabetic neuropathy (Chronic) Peripheral vascular disease (Chronic) Venous insufficiency of both lower extremities (Chronic) Congestive heart failure (Chronic) History of coronary artery bypass graft (Chronic) 2014 History of PTCA (Chronic) 6 stents per patient Surgical History: angioplasty, cholecystectomy, coronary bypass surgery, hysterectomy, pacemaker implantation, - - *Family History Maternal History Items: Hypertension Paternal History Items: Heart Disease Lives: With Family Smoking Status: Former smoker Tobacco Use: Cigarettes Alcohol: None Drugs: None Review of Systems - Review of Systems General: Denies: Fever, Night Sweats, Fatigue Cardiovascular: Reports: Chest Discomfort, Chest Discomfort at Rest, Shortness of Breath, Shortness of Breath at Rest. Denies: Orthopnea, PND, Peripheral Edema, Palpitations, Lightheadedness, Dizziness, Near Syncope, Syncope Respiratory: Denies: Cough, Sputum Production, Hemoptysis Gastrointestinal: Denies: Hematemesis, Hematochezia, Melena Genitourinary: Denies: Dysuria, Hematuria Skin: Denies: Rash Subjectve: Patient laying in bed, no acute distress. Objective: Vital Signs Temp Pulse Resp BP Pulse Ox 98.6 F 78 18 120/47 L 97 05/12/18 08:56 05/12/18 08:56 05/12/18 08:56 05/12/18 08:56 05/12/18 08:56 Oxygen Flow Rate (L/min) 2 Oxygen Delivery Method Nasal Cannula Intake and Output for Last 24 Hours Intake Total 160 / 160 Balance 160 / 160 General: Awake, Alert, Oriented x 3 HEENT: PERRL, EOMI, Sclera Non Icteric Neck: Supple, Good ROM, No Lymph Node Enlargement Lungs: Clear to auscultation Cardiovascular: Irregular Rhythm, Normal S1, Normal S2, No Rubs, No Gallops Murmur Murmur: Grade 2/6, Holosystolic Vascular: No Carotid Bruits, Normal Femoral Pulses, Normal Radial Pulses, Normal Dorsalis Pedal Pulse, Normal Posterior Tibial Pulses Abdomen: Bowel Sounds Present, Soft, Non Tender, No HSM, No Organomegaly Extremities: No Cyanosis, No Clubbing, No edema Neurological: No Focal Motor or Sensory Deficit 05/11/18 16:50: Troponin I 0.614 H* 05/11/18 21:08: Troponin I 0.688 H* 05/12/18 06:10: WBC 6.2, RBC 3.74 L, Hgb 11.3 L, Hct 36.4 L, MCV 97.3, MCH 30.2, MCHC 31.0 L, RDW 14.9 H, RDW Differential 52.7 H, Plt Count 126 L, MPV 9.4 05/12/18 06:10: Sodium 142, Potassium 4.1, Chloride 101, Carbon Dioxide 35.0 H, Anion Gap 6, BUN 21 H, Creatinine 3.28 H, Est GFR (MDRD) Af Amer 18 L, Est GFR (MDRD) Non-Af 15 L, BUN/Creatinine Ratio 6.4 L, Glucose 78, Calcium 8.8, Troponin I 0.643 H*, Triglycerides 98, Cholesterol 114, LDL Cholesterol 57, VLDL Cholesterol 20, HDL Cholesterol 37 L Rhythm: EKG: ECHO: Stress Test: Cardiac Cath: PCI: CT Surgery: Holter monitor: EPS: PPM: CXR: Chest CT Scan: Assessment/Plan #1. Ischemic cardiomyopathy: The patient has had several admissions now with substernal chest pain and abnormal troponins with recent stress test this month showing old anterior apical and inferior infarct. Patient has a history of receiving 9 stents in the past, and her last catheterization was around 5 years ago. I recommended the patient be loaded with Plavix 3 mg 1 now followed by 75 mg a day. Apparently she is unable to take aspirin due to a true aspirin allergy. I recommended she undergo a repeat left her catheterization tomorrow morning. We will hold her Eliquis today and tomorrow. The patient's stents are widely patent and requires no additional therapy, we will resume her Eliquis in 3 days time assuming she has no groin complications. If however she requires intervention, would recommend Plavix 75 mg p.o. twice daily in lieu of baby aspirin. 2. AICD: Patient is status post AICD therapy. She has had no discharges. 3. Hypertension: Patient has evidence of both systemic and severe pulmonary hypertension. Recommend continuing Imdur and Coreg. 4. Atrial fibrillation: Patient is currently on Eliquis therapy as well as amiodarone for heart rate control. We will hold her Eliquis and continue amiodarone at this time for both her ischemic cardiomyopathy as well as her atrial fibrillation. 5. Thank you very much for the opportunity to participate in the cardiac care of your patient. Consultation time was between 830 and 9 AM. Code Visit Inpatient E AND M: [id number] Init Hosp L2 05/12/18 1106 <Electronically signed by Jesse Hunter MD> Date Jesse Hunter MD Cosigner Signature (if applicable): Date CC: Mook Kamara MD; Jesse Hunter MD; Ynes De La Torre MD; Luis Wise MD Signed BEDSIDE GLUCOSE Collected: 05/12/2018 Status: F Source: [place] 10:54 AM [facility] REPOSITORY TYPE CODE TESTS RESULT OUT OF REFERENCE UNITS RANGE LAB L501.080 70-110 mg/dL High BEDSIDE GLU 209 Result Comment: MANAGEMENT OF PATIENT CARE PER NURSING PROTOCOL Performed By: #### L501.080 #### [facility] Point [place] [address] [address] ECHOCARDIOGRAM COMPLETE Observed: 05/12/2018 Status: F Source: [place] 10:52 AM [facility] REPOSITORY [facility] Cardiovascular Services [address] [place] [address] Echo Complete 05/12/18 0805 MR#: [id number] Acct: [id number] Name: LUZ BACA Rep #: [id number] : 1940 77 From: Jesse Hunter MD Attending Dr: Isabela Ladd DO Status: ADM IN Ordering Dr: Luis Wise MD Date: 05/11/18 Location: [facility] Sex: F C Admitted: 05/11/18 Reason For Study: CAD/ASHD Procedure This was a 2D Doppler, Color Flow transthoracic echocardiogram. Exam performed portable in patient room. Left Ventricle Mild concentric left ventricular hypertrophy. D shaped septum in diastole. The estimated ejection fraction is 55 %. Paced septal motion. No regional wall motion abnormalities noted. Right Ventricle Normal size and thickness. ICD or pacer leads identified within the right ventricle. Normal systolic function. Atria The left atrium is severely enlarged. The right atrium is severely enlarged. Normal atrial septum. Mitral Valve The mitral valve is structurally normal. No prolapse or stenosis seen. Trivial mitral valve insufficiency. Tricuspid Valve Normal tricuspid valve. Moderately severe (3+) tricuspid valve insufficiency. Right ventricular systolic pressure estimated to be 77 mmHg. Severe pulmonary hypertension. Aortic Valve Trisinus/trileaflet aortic valve. Mild diffuse aortic valve thickening. There is no aortic stenosis. Pulmonic Valve Normal pulmonic valve. Great Vessels Normal aortic root. Normal arch. The inferior vena cava is dilated. No collapse of the inferior vena cava. Pericardium/Pleural No pericardial effusion. MMode/2D Measurements AND Calculations LVIDd: 4.5 cm IVSd: 1.3 cm Ao root diam: 3.2 cm LVIDs: 2.7 cm LVPWd: 1.5 cm LA dimension: 4.3 cm RVDd: 3.5 cm FS: 41.2 % LAV(MOD-bp): 71.8 ml LVAd ap4: 31.0 cm2 SV(MOD-sp4): 52.1 ml LAV(MOD-bp) Indexed: 35.0 ml/m2 EDV(MOD-sp4): 102.4 ml LAV(MOD-sp2): 55.7 ml EDV(sp4-el): 102.7 ml LAV(MOD-sp4): 84.0 ml LVAs ap4: 20.9 cm2 ESV(MOD-sp4): 50.3 ml ESV(sp4-el): 50.2 ml EF(MOD-sp4): 50.9 % EF(sp4-el): 51.1 % SV(sp4-el): 52.5 ml LA A4 area: 25.9 cm2 RA A4 area: 22.9 cm2 Doppler Measurements AND Calculations MV E max chucky: 148.4 cm/sec Ao V2 max: 157.8 cm/sec LV V1 max: 109.7 cm/sec MV A max chucky: 31.8 cm/sec Ao max P.0 mmHg LV V1 max P.8 mmHg MV E/A: 4.7 PA V2 max: 144.3 cm/sec TR max chucky: 373.1 cm/sec TR max P.8 mmHg Interpretation Summary Mild concentric left ventricular hypertrophy. The estimated ejection fraction is 55 %. The left atrium is severely enlarged. The right atrium is severely enlarged. Moderately severe (3+) tricuspid valve insufficiency. Severe pulmonary hypertension. Pt appears to be in atrial fibrillation. There is no comparison study available. Ordering Physician: Luis Wise Referring Physician: JAMESON KAMARA Performed By: Suzanne Mcdonough RDCS 05/12/18 1052 Date Jesse Hunter MD CC: Mook Kamara MD; Isabela Ladd DO; Luis Wise MD Date Dictated: 05/12/18804 Date Transcribed: 05/12/181051 Service Delivery Supervisor: Signed BEDSIDE GLUCOSE Collected: 05/12/2018 Status: F Source: [place] 6:59 AM [facility] REPOSITORY TYPE CODE TESTS RESULT OUT OF RANGE REFERENCE UNITS LAB L501.080 70-110 mg/dL Normal BEDSIDE GLU 87 Result Comment: MANAGEMENT OF PATIENT CARE PER NURSING PROTOCOL Performed By: #### L501.080 #### [facility] [place] [address] CBC-COMPLETE BLOOD CNT Collected: 05/12/2018 Status: F Source: [place] NO DIFF 6:10 AM [facility] REPOSITORY TYPE CODE TESTS RESULT OUT OF RANGE REFERENCE UNITS LAB L100.1000 4.4-11.0 K/mm3 Normal WBC 6.2 LAB L100.1200 4.2-5.4 M/mm3 Low RBC 3.74 LAB L100.1300 12.0-15.0 g/dl Low HGB 11.3 LAB L100.1400 37-47 % Low HCT 36.4 LAB L100.1500 81-99 fL Normal MCV 97.3 LAB L100.1600 27.0-32.0 pg Normal MCH 30.2 LAB L100.1700 32-36 g/gl Low MCHC 31.0 LAB L100.1810 11.6-14.6 % High RDW CV 14.9 LAB L100.1820 35.1-43.9 fl High RDW SD 52.7 LAB L100.1900 150-450 K/mm3 Low PLT 126 LAB L100.2000 6.2-12.0 fl Normal MPV 9.4 Performed By: #### L100.0500 #### [facility] [address] [place], [place], [address] BASIC METABOLIC Collected: 05/12/2018 Status: F Source: [place] PROFILE (BMP) 6:10 AM [facility] REPOSITORY TYPE CODE TESTS RESULT OUT OF RANGE REFERENCE UNITS LAB L501.0100 74-106 mg/dL Normal GLU 78 Result Comment: Please note revised GLUCOSE reference range effective 2017. LAB L501.1000 7-18 mg/dL High BUN 21 LAB L501.1100 0.55-1.02 mg/dL High CREAT,SERUM 3.28 Result Comment: The validity of the calculated GFR AND GFRAA in patients over 70 years has not been determined. Clinical correlation is essential. LAB L501.1110 >60 mL/min Low EST GFR 15 Result Comment: Non- GFR Calc LAB L501.1115 >60 mL/min Low EST GFR - AA 18 Result Comment: GFR Calc LAB L501.1255 ml/min Normal Estimated CRCL 14.72 LAB L501.1300 10-20 RATIO Low BUN/CRE 6.4 LAB L501.2200 8.5-10 mg/dL Normal .1 CA 8.8 LAB L501.5300 136-14 mmol/L Normal 5 NA 142 LAB L501.5600 3.5-5. mmol/L Normal 1 K 4.1 LAB L501.5900 98-107 mmol/L Normal CL 101 LAB L501.6100 21.0-3 mmol/L High 2.0 CO2 35.0 LAB L501.6200 5-15 Normal GAP 6 Performed By: #### L500.2500, L500.4100, L501.4010 #### [facility] [address] [place], [address] LIPID PROFILE Collected: 05/12/2018 Status: F Source: [place] 6:10 AM [facility] REPOSITORY TYPE CODE TESTS RESULT OUT OF RANGE REFERENCE UNITS LAB L501.4900 200 mg/dL Normal CHOL 114 Result Comment: <200 mg/dL Desirable 200-240 mg/dL Borderline >240 mg/dL High Risk LAB L501.5000 mg/dL Normal TRIG 98 Result Comment: The drugs N-Acetylcysteine and Metamizole may falsely depress this assay. Serum Triglycerides Reference Interval Normal <150 mg/dL Borderline high 150 - 199 mg/dL High 200 - 499 mg/dL Very High > or = 500 mg/dL LAB L501.6400 mg/dL Low HDL 37 Result Comment: The drugs N-Acetylcysteine and Metamizole may falsely depress this assay. Reference Range HDL <40 mg/dL Low HDL Cholesterol HDL >or= 60 mg/dL High HDL Cholesterol LAB L501.6500 0-130 mg/dL Normal LDL 57 LAB L501.6600 5-40 mg/dL Normal VLDL 20 Performed By: #### L500.2500, L500.4100, L501.4010 #### [facility] [address] [place], [address] TROPONIN-I Collected: 05/12/2018 Status: F Source: [place] 6:10 AM [facility] REPOSITORY TYPE CODE TESTS RESULT OUT OF RANGE REFERENCE UNITS LAB L501.4010 <0.045 ng/mL High alert 0.643 TROPONIN-I Result Comment: Critical Result(s) Called at: 07:15:45 05/12/2018 by: Rosalina Coulter TROPONIN-I EXPECTED VALUES <0.045 Negative 0.045 - 0.590 Consistent with Cardiac Damage > OR = 0.600 Critical Value Not every elevated troponin is indicative of NE. These values should be used with clinical judgement in examining the patient's clinical picture for diagnosis. To establish a diagnosis of NE versus myocardial injury, there must be a demonstrated rise and/or fall in the troponin values, in addition to ischemic symptoms, EKG changes, new regional wall motion abnormality, and/or angiographical evidence. PLEASE NOTE: REFERENCE RANGES EDITED 18 Performed By: #### L500.2500, L500.4100, L501.4010 #### [facility] [address] [place], [address] BEDSIDE GLUCOSE Collected: 05/11/2018 Status: F Source: [place] 9:23 PM [facility] REPOSITORY TYPE CODE TESTS RESULT OUT OF RANGE REFERENCE UNITS LAB L501.080 70-110 mg/dL Normal BEDSIDE GLU 94 Result Comment: MANAGEMENT OF PATIENT CARE PER NURSING PROTOCOL Performed By: #### L501.080 #### [facility] Point of Care [address] [place] [address] TROPONIN-I Collected: 05/11/2018 Status: F Source: [place] 9:08 PM [facility] REPOSITORY Order Comment: 'TROP' Serial specimen #1, #2 or #3: 2 TYPE CODE TESTS RESULT OUT OF RANGE REFERENCE UNITS LAB L501.4010 <0.045 ng/mL High alert 0.688 TROPONIN-I Result Comment: Critical Result(s) Called at: 21:51:38 05/11/2018 by: JONATHAN ROBERTS to radha billy in [facility] TROPONIN-I EXPECTED VALUES <0.045 Negative 0.045 - 0.590 Consistent with Cardiac Damage > OR = 0.600 Critical Value Not every elevated troponin is indicative of NE. These values should be used with clinical judgement in examining the patient's clinical picture for diagnosis. To establish a diagnosis of NE versus myocardial injury, there must be a demonstrated rise and/or fall in the troponin values, in addition to ischemic symptoms, EKG changes, new regional wall motion abnormality, and/or angiographical evidence. PLEASE NOTE: REFERENCE RANGES EDITED 18 Performed By: #### L501.4010 #### [facility] [address] [place], [address] CONSULTATION Observed: 05/11/2018 Status: F Source: [place] 6:36 PM [facility] REPOSITORY [facility] Medical Records Department [address] [place] [address] Consultation 05/11/18 1833 MR#: [id number] Acct: [id number] Name: LUZ BACA Rep #: [id number] : 1940 77 From: Spencer Swartz MD PCP: Mook Kamara MD Status: ADM IN Y [id number] Problem List (1) End stage renal disease Status: Chronic Consultation - Renal 05/11/18 PCP/ Referring MD: Requesting physician: Dr Ji Primary care physician: Mook Kamara, Reason for Consultation:: ESRD - History of Present Illness History of Present Illness: The patient is a 77 year old F well known to us. H/o CKD stage 3/4. was admitted at [facility] few months ago with severe CHF. initiated dialysis at that time. was in dialysis unit today and developed chest pain. she was admitted here in the past with similar complaints and had a negative stress test. troponins were noted to be high - Allergies Allergies: Allergies latex Allergy (Verified 05/11/18 13:30) Anaphylaxis meperidine [From Demerol] Allergy (Verified 05/11/18 13:30) Hives Penicillins Allergy (Verified 05/11/18 13:30) Hives Tetracyclines Allergy (Verified 05/11/18 13:30) Hives aspirin Adverse Reaction (Verified 05/11/18 13:30) Unknown atorvastatin Adverse Reaction (Verified 05/11/18 13:30) Unknown codeine Adverse Reaction (Verified 05/11/18 13:30) Unknown hydromorphone [From Dilaudid] Adverse Reaction (Verified 05/11/18 13:30) Unknown pentazocine Adverse Reaction (Verified 05/11/18 13:30) Unknown pioglitazone Adverse Reaction (Verified 05/11/18 13:30) Unknown propoxyphene Adverse Reaction (Verified 05/11/18 13:30) Unknown sulfamethoxazole [From Bactrim] Adverse Reaction (Verified 05/11/18 13:30) Unknown trimethoprim [From Bactrim] Adverse Reaction (Verified 05/11/18 13:30) Unknown - Current Medications Current Medications: Current Medications Hydrocodone Bitart/Acetaminophen ([place] 5mg-325mg) 1 tablet PO TID PRN PRN Reason: PAIN Albuterol Sulfate (Ventolin Aerosols) 2.5 mg INHALATION Q6HWA.RT OSCAR Amiodarone HCl (Cordarone) 200 mg PO DAILYCM OSCAR Apixaban (Eliquis) 5 mg PO BID [facility] Budesonide (Pulmicort Aerosol) 0.5 mg INHALATION BID.RT OSCAR Carvedilol (Coreg) 3.125 mg PO BID [facility] Insulin Glargine (Lantus (Bkc)) 36 units SC QHS [facility] Insulin Glargine (Lantus (Bkc)) 50 units SC BREAKFAST [facility] Isosorbide Mononitrate (Imdur) 60 mg PO DAILY [facility] Magnesium Hydroxide (Milk Of Magnesia) 30 ml PO DAILY PRN PRN Reason: Constipation Nitroglycerin (Nitrostat) 0.4 mg SUBLINGUAL Q5M PRN PRN Reason: CARDIAC/CHEST PAIN Non-Formulary Medication (Insulin Aspart [Novolog Flexpen]) 0 - 100 units SC TIDCM [facility] Ondansetron HCl (Zofran Odt) 4 mg PO Q8H PRN PRN Reason: NAUSEA/VOMITING Pantoprazole Sodium (Protonix) 20 mg PO DAILY [facility] Senna (Senokot) 1 tablet PO QHS PRN PRN PRN Reason: stool softner Simvastatin (Zocor) 40 mg PO QHS [facility] Tramadol HCl (Ultram) 50 mg PO Q6H PRN PRN Reason: PAIN Trazodone HCl (Desyrel) 100 mg PO QHS [facility] - Past Medical History Past Medical History (Chronic Problems): Chronic Problems Hypertension (Chronic) Hyperlipidemia (Chronic) Type 2 diabetes mellitus (Chronic) COPD (chronic obstructive pulmonary disease) (Chronic) Chronic hypoxemic respiratory failure (Chronic) Chronic anticoagulation (Chronic) Atrial fibrillation (Chronic) Coronary artery disease (Chronic) 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) End stage renal disease (Chronic) Diabetic neuropathy (Chronic) Peripheral vascular disease (Chronic) Venous insufficiency of both lower extremities (Chronic) Congestive heart failure (Chronic) History of coronary artery bypass graft (Chronic) 2013 History of PTCA (Chronic) 6 stents per patient - Past Surgical History Surgical History: angioplasty, cholecystectomy, coronary bypass surgery, hysterectomy, pacemaker implantation, - - Social History Smoking Status: Former smoker Alcohol: None Drugs: None - Family History Maternal History Items: Hypertension Paternal History Items: Heart Disease Review of Systems Constitutional: Denies: Chills, Fever, Weight Change HEENT: Denies: Head Aches, Sinus Congestion, Sinus Drainage Cardiovascular: Denies: Chest Pain, Palpitations Respiratory: Denies: Cough, Shortness of breath at rest, Sputum production Gastrointestinal: Denies: Abdominal Pain, Nausea, Vomiting Genitourinary: Denies: Dysuria Musculoskeletal: Denies: Joint Pain, Joint Tenderness Skin: Denies: Rash, Wounds Neurological: Denies: Numbness, Tingling, Focal weakness Psychiatric: Denies: Anxiety, Depression, Homicidal Ideations, Suicidal Ideations Hematologic/ Lymphatic: Denies: Easy Bruising, Easy Bleeding Patient Problems: Active and Suspected Problems NSTEMI (non-ST elevated myocardial infarction) (Acute) - Physical Exam General: Alert, Oriented x3, Cooperative HEENT: Atraumatic, PERRLA, EOMI, Normocephalic Neck: Supple, No JVD, Negative Carotid Bruits Lungs: Clear to auscultation, Normal air movement Cardiovascular: Regular rate, No murmurs Abdomen: Bowel Sounds Present, Soft, Non Tender Extremities: No edema, Capillary Refill Less than 3 Seconds Skin: No rashes, No breakdown Musculoskeletal: No Tenderness to Palpation of Joints or Extremities Neurological: Cranial nerves II-XII grossly intact Psych/Mental Status: Normal Affect, Appropriate Vital Signs Temp Pulse Resp BP Pulse Ox 98.1 F 73 20 H 139/76 H 95 05/11/18 17:09 05/11/18 17:09 05/11/18 17:09 05/11/18 17:09 05/11/18 17:09 Oxygen Flow Rate (L/min) 2 Oxygen Delivery Method Nasal Cannula Intake and Output for Last 24 Hours Intake Total 100 / 100 Balance 100 / 100 Laboratory Tests Past 24 Hrs Troponin I Pending POC Glucose POC Glucose 79 Assessment/Plan All Active Problems NSTEMI (non-ST elevated myocardial infarction) (Acute) ESRD. Received about 2 hours worth of HD today. labs are ok. hold off HD for today Chest pain. now with elevated troponins. may need angiogram Anemia. WILLY with HD 05/11/18 9256 <Electronically signed by Spencer Swartz MD> Date Spencer Swartz MD Cosigner Signature (if applicable): Date CC: Mook Kamara MD; Jesse Hunter MD; Ynes De La Torre MD; Luis Wise MD Signed HISTORY AND PHYSICAL Observed: 05/11/2018 Status: F Source: [place] 5:21 PM [facility] REPOSITORY [facility] Medical Records Department [address] [place] [address] History and Physical 05/11/18 1546 MR#: [id number] Acct: [id number] Name: LUZ BACA Rep #: [id number] : 1940 77 From: Mariluz LANTIGUAC PCP: Mook Kamara MD Status: ADM IN Y [id number] <Mariluz Gaffney - Last Filed: 05/11/18 16:10> Problem List (1) Hypertension Status: Chronic (2) Hyperlipidemia Status: Chronic (3) Type 2 diabetes mellitus Status: Chronic (4) COPD (chronic obstructive pulmonary disease) Status: Chronic (5) Chronic hypoxemic respiratory failure Status: Chronic (6) Chronic anticoagulation Status: Chronic (7) Atrial fibrillation Status: Chronic (8) Coronary artery disease Status: Chronic (9) Presence of combination internal cardiac defibrillator (ICD) and pacemaker Status: Chronic (10) End stage renal disease Status: Chronic (11) Diabetic neuropathy Status: Chronic (12) Peripheral vascular disease Status: Chronic (13) Venous insufficiency of both lower extremities Status: Chronic (14) Congestive heart failure Status: Chronic (15) History of coronary artery bypass graft Status: Chronic Comment: 2013 (16) History of PTCA Status: Chronic Comment: 6 stents per patient History of Present Illness Date of Admission: 05/11/18 Chief Complaint: Chest pain. The patient is a 77 year old F who presents to the emergency room due to chest pain. Patient states chest pain began last evening, sharp in nature and intermittent lasting a few minutes at a time. She states pain radiated from middle of her chest to area of defibrillator. She attempted sublingual nitro without any relief. She describes associated shortness of breath. She denies any aggravated or alleviating factors. Denies nausea, dizziness, diaphoresis. Patient states her daughter wanted to take her to the emergency room last night and she refused. Patient continued to have intermittent chest pain this morning which occurred during dialysis and she was sent to the emergency room. Patient had a recent admission 04/21/2018 through 04/22/2018. She underwent nuclear stress test at that time which was negative for ischemia. Her troponin was elevated at that time as well. She has an extensive medical history including CAD status post CABG in 2013 and PTCA 6, chronic systolic CHF, hypertension, hyperlipidemia, type 2 diabetes mellitus, COPD with chronic hypoxic respiratory failure, atrial fibrillation on chronic anticoagulation with Eliquis, status post AICD, end-stage renal disease on hemodialysis, PVD, GERD, history of tobacco use (cessation in 2003). Stress test 04/22/2018 showed a gated ejection fraction of 49%. Past Medical History Past Medical History (Chronic Problems): Chronic Problems Hypertension (Chronic) Hyperlipidemia (Chronic) Type 2 diabetes mellitus (Chronic) COPD (chronic obstructive pulmonary disease) (Chronic) Chronic hypoxemic respiratory failure (Chronic) Chronic anticoagulation (Chronic) Atrial fibrillation (Chronic) Coronary artery disease (Chronic) 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) End stage renal disease (Chronic) Diabetic neuropathy (Chronic) Peripheral vascular disease (Chronic) Venous insufficiency of both lower extremities (Chronic) Congestive heart failure (Chronic) History of coronary artery bypass graft (Chronic) 2013 History of PTCA (Chronic) 6 stents per patient Allergies latex Allergy (Verified 05/11/18 13:30) Anaphylaxis meperidine [From Demerol] Allergy (Verified 05/11/18 13:30) Hives Penicillins Allergy (Verified 05/11/18 13:30) Hives Tetracyclines Allergy (Verified 05/11/18 13:30) Hives aspirin Adverse Reaction (Verified 05/11/18 13:30) Unknown atorvastatin Adverse Reaction (Verified 05/11/18 13:30) Unknown codeine Adverse Reaction (Verified 05/11/18 13:30) Unknown hydromorphone [From Dilaudid] Adverse Reaction (Verified 05/11/18 13:30) Unknown pentazocine Adverse Reaction (Verified 05/11/18 13:30) Unknown pioglitazone Adverse Reaction (Verified 05/11/18 13:30) Unknown propoxyphene Adverse Reaction (Verified 05/11/18 13:30) Unknown sulfamethoxazole [From Bactrim] Adverse Reaction (Verified 05/11/18 13:30) Unknown trimethoprim [From Bactrim] Adverse Reaction (Verified 05/11/18 13:30) Unknown Home Medications: Ambulatory Orders Medication Instructions Recorded Surgical History: angioplasty - has had a total of 6 stents, cholecystectomy, coronary bypass surgery - 2013, hysterectomy - for DUB, pacemaker implantation - AICD/PM, - - Excision of cyst left leg. Psychiatric History: No pertinent psych hx CARE ASSOCIATE History: No pertinent CARE ASSOCIATE history Lives: With Family Smoking Status: Former smoker Alcohol: None Drugs: None - *Family History Maternal History Items: Hypertension Paternal History Items: Heart Disease Review of Systems Constitutional: Denies: Chills, Fever, Weight Change HEENT: Denies: Head Aches, Sinus Congestion, Sinus Drainage Cardiovascular: Reports: Chest Pain. Denies: Edema, Palpitations, Syncope Respiratory: Reports: Shortness of Breath - Associated with chest pain. Denies: Cough, Wheezing Gastrointestinal: Denies: Abdominal Pain, Nausea, Vomiting Genitourinary: Denies: Dysuria Musculoskeletal: Denies: Joint Pain, Joint Tenderness Skin: Denies: Rash, Wounds Neurological: Reports: - - Chronic neuropathy bilateral lower extremities.. Denies: Focal weakness Psychiatric: Denies: Anxiety, Depression, Homicidal Ideations, Suicidal Ideations Hematologic/ Lymphatic: Denies: Easy Bruising, Easy Bleeding VTE Information - Inpt Only VTE Present on Admission: No VTE Mechan Device Prophylaxis: None VTE Pharm Prophylaxis ordered?: Yes Patient Problems: Active and Suspected Problems NSTEMI (non-ST elevated myocardial infarction) (Acute) - Physical Exam General: Alert, Oriented x3, Cooperative, No apparent distress HEENT: Atraumatic, PERRLA, EOMI, Normocephalic Neck: Supple, No JVD, Negative Carotid Bruits Lungs: Clear to auscultation, Diminished Cardiovascular: Regular rate, Regular Rhythm, Normal S1, Normal S2, No murmurs Abdomen: Bowel Sounds Present, Soft, Non Tender, Non-Distended, Obese Extremities: - - Lower extremities appear dusky in color, scattered scabbing bilateral lower extremities. No evidence of infection. Musculoskeletal: No Tenderness to Palpation of Joints or Extremities Neurological: Cranial nerves II-XII grossly intact, Neuro grossly intact Psych/Mental Status: Normal Affect, Appropriate Vital Signs Temp Pulse Resp BP Pulse Ox 97.7 F L 74 28 H 120/81 H 96 05/11/18 13:31 07/25/18 14:35 05/11/18 14:35 05/11/18 14:35 05/11/18 14:35 Oxygen Flow Rate (L/min) 2.5 Oxygen Delivery Method Nasal Cannula Weight: 213 lb 6.519 oz Body Mass Index (BMI) 32.4 Laboratory Tests Past 24 Hrs WBC 5.4 Assessment/Plan All Active Problems NSTEMI (non-ST elevated myocardial infarction) (Acute) 1. Chest pain, underlying history of CAD status post CABG in 2013 and PTCA 6-EKG on admission without evidence of ischemia. Troponin elevated, 0.7. Patient was noted to have elevated troponin during recent admission in April 2018 as well with a peak troponin of 0.58. Stress test 04/22/2018 showed a gated ejection fraction of 49%, no obvious evidence of ischemia. Cardiology consulted. Hold Eliquis regimen pending further plans per cardiology. Continue isosorbide, amiodarone, carvedilol, statin. Nitro sublingual as needed. Repeat EKG with new onset chest pain. Obtain echocardiogram. 2. Atrial fibrillation on chronic anticoagulation with Eliquis- hold Eliquis. Rate controlled. 3. Chronic systolic CHF-no evidence of CHF exacerbation. No previous echocardiogram however EF based on recent stress test 49%. 4. Hypertension-stable, continue home regimen. 5. Hyperlipidemia-continue statin. 6. Type 2 diabetes agjthous-Aepn-Pwiao before meals at bedtime. Continue home Lantus regimen. Before meals at bedtime sliding scale. 7. Chronic COPD with chronic hypoxic respiratory failure- no acute exacerbation. Albuterol and DuoNeb aerosols. Patient chronically wears 2 L nasal cannula at baseline. Continue supplement oxygen to maintain O2 at or above 90%. 8. End-stage renal disease-on Wednesday, Wednesday, Wednesday hemodialysis through right chest tunneled catheter. Patient undergoing assessment for fistula vascular as outpatient. Has seen Dr. Martin in the past. Consult nephrology to maintain hemodialysis schedule. 9. Status post AICD 10. PVD-patient reports recent vascular studies in which she was to follow-up as outpatient for results. Damion wraps bilateral lower extremities. 11. GERD-continue PPI. 12. History of tobacco use 13. Obesity-encourage diet and lifestyle modifications. Nutrition consult. DVT prophylaxis-hold Eliquis pending further plans per cardiology. This patient was seen by JUNAID Cason under the supervision of Dr. Ji. <Clemente Ji - Last Filed: 05/11/18 17:20> Problem List (1) NSTEMI (non-ST elevated myocardial infarction) Status: Acute History of Present Illness The patient is a 77 year old F Mayra with chest pain that began on the . Had a troponin of 0.7. Was already anticoagulated with Eliquis. Cardiology has been contacted by the emergency room. Patient has had a history of multiple stents and has had a CABG in the past. Patient had a left heart catheterization a few years ago at the [facility] was apparently negative. Patient was here earlier this month with chest pain but states that this chest pain felt different than that. [] Past Medical History Allergies latex Allergy (Verified 05/11/18 13:30) Anaphylaxis meperidine [From Demerol] Allergy (Verified 05/11/18 13:30) Hives Penicillins Allergy (Verified 05/11/18 13:30) Hives Tetracyclines Allergy (Verified 05/11/18 13:30) Hives aspirin Adverse Reaction (Verified 05/11/18 13:30) Unknown atorvastatin Adverse Reaction (Verified 05/11/18 13:30) Unknown codeine Adverse Reaction (Verified 05/11/18 13:30) Unknown hydromorphone [From Dilaudid] Adverse Reaction (Verified 05/11/18 13:30) Unknown pentazocine Adverse Reaction (Verified 05/11/18 13:30) Unknown pioglitazone Adverse Reaction (Verified 05/11/18 13:30) Unknown propoxyphene Adverse Reaction (Verified 05/11/18 13:30) Unknown sulfamethoxazole [From Bactrim] Adverse Reaction (Verified 05/11/18 13:30) Unknown trimethoprim [From Bactrim] Adverse Reaction (Verified 05/11/18 13:30) Unknown Surgical History: angioplasty, cholecystectomy, coronary bypass surgery, hysterectomy, pacemaker implantation, - Psychiatric History: No pertinent psych hx CARE ASSOCIATE History: No pertinent CARE ASSOCIATE history Lives: With Family Smoking Status: Former smoker Alcohol: None Drugs: None - *Family History Maternal History Items: Hypertension Paternal History Items: Heart Disease Review of Systems Constitutional: Denies: Chills, Fever, Weight Change HEENT: Denies: Head Aches, Sinus Congestion, Sinus Drainage Cardiovascular: Reports: Chest Pain. Denies: Palpitations, Syncope Respiratory: Reports: Shortness of Breath. Denies: Cough, Wheezing Gastrointestinal: Denies: Abdominal Pain, Nausea, Vomiting Genitourinary: Denies: Dysuria Musculoskeletal: Denies: Joint Pain, Joint Tenderness Skin: Denies: Rash, Wounds Neurological: Reports: -. Denies: Focal weakness Psychiatric: Denies: Anxiety, Depression, Homicidal Ideations, Suicidal Ideations Hematologic/ Lymphatic: Denies: Easy Bruising, Easy Bleeding Comment: All review of systems are negative except as mentioned in the history of present illness and the other review of systems. VTE Information - Inpt Only VTE Present on Admission: No VTE Pharm Prophylaxis ordered?: Yes - Physical Exam General: Alert, Cooperative, No apparent distress HEENT: Atraumatic, Normocephalic Neck: No Nodes, Thyroid Normal Size and Texture Lungs: Clear to auscultation, Normal air movement, No rhonchi, No wheeze Cardiovascular: Regular rate, Regular Rhythm, Normal S1, Normal S2, No murmurs Abdomen: Bowel Sounds Present, Soft, Non Tender, Non-Distended, No Hepato-splenomegaly Extremities: - Psych/Mental Status: Normal Affect, Appropriate Vital Signs Temp Pulse Resp BP Pulse Ox 36.7 C 73 20 H 139/76 H 95 05/11/18 17:09 05/11/18 17:09 05/11/18 17:09 05/11/18 17:09 05/11/18 17:09 Oxygen Flow Rate (L/min) 2 Oxygen Delivery Method Nasal Cannula Assessment/Plan Patient seen and examined independently. Data reviewed. I agree with the above note by the nurse practitioner. 1. Non-ST elevation myocardial infarction * Medical management for now, cardiology will be on consultation. Concern is that the patient may need a left heart catheterization. 2. End-stage renal disease * Patient has been on hemodialysis since February vascular catheter in place. * Patient stated that she only completed 2 hours of her dialysis session today * Nephrology will be on consultation * The patient does require left heart catheterization, will need to time dialysis accordingly. Code Visit Inpatient E AND M: [id number] Init Hosp L3 05/11/18 1611 <Electronically signed by Mariluz QUIROGA> Date Mariluz Gaffney MISSILEMAN-C 05/11/18 1721<Electronically signed by Clemente Ji DO> Cosigner Signature: Date (if applicable) Clemente Ji DO CC: MISSILEMAN-C Mariluz Gaffney; Mook Kamara MD; Clemente iJ DO Signed BEDSIDE GLUCOSE Collected: 05/11/2018 Status: F Source: [place] 5:16 PM [facility] REPOSITORY TYPE CODE TESTS RESULT OUT OF RANGE REFERENCE UNITS LAB L501.080 70-110 mg/dL Normal BEDSIDE GLU 79 Result Comment: MANAGEMENT OF PATIENT CARE PER NURSING PROTOCOL Performed By: #### L501.080 #### [facility] Point of Care [facility] [place] [address] TROPONIN-I Collected: 05/11/2018 Status: F Source: [place] 4:50 PM [facility] REPOSITORY Order Comment: 'TROP' Serial specimen #1, #2 or #3: 2 TYPE CODE TESTS RESULT OUT OF RANGE REFERENCE UNITS LAB L501.4010 <0.045 ng/mL High alert 0.614 TROPONIN-I Result Comment: Critical Result(s) Called at: 19:22:41 05/11/2018 by: JONATHAN goodson rn in u TROPONIN-I EXPECTED VALUES <0.045 Negative 0.045 - 0.590 Consistent with Cardiac Damage > OR = 0.600 Critical Value Not every elevated troponin is indicative of NE. These values should be used with clinical judgement in examining the patient's clinical picture for diagnosis. To establish a diagnosis of NE versus myocardial injury, there must be a demonstrated rise and/or fall in the troponin values, in addition to ischemic symptoms, EKG changes, new regional wall motion abnormality, and/or angiographical evidence. PLEASE NOTE: REFERENCE RANGES EDITED 18 Performed By: #### L501.4010 #### [facility] [address] [place], [address] EMERGENCY DEPARTMENT Observed: 05/11/2018 Status: F Source: [place] SUMMARY 3:07 PM [facility] REPOSITORY [facility] Medical Records Department [address] [place] [address] Emergency Department Summary 05/11/18 1500 MR#: [id number] Acct: [id number] Name: LUZ BACA Rep #: [id number] : 1940 77 From: Lius Wise MD PCP: Mook Kamara MD Status: REG ER - ER Visit Summary Date of Service: 05/11/18 Chief Complaint: Sharp midsternal chest discomfort during dialysis with nausea and diaphoresis. Patient states she had similar presentation when she was diagnosed with NE. History of Present Illness: The patient is a 77 F midsternal chest pain during dialysis. This was associated with nausea and diaphoresis. She denied radiation. She did report numbness in her left upper extremity. She is status post 2 vessel bypass surgery and has had 9 stents placed. The surgery was done in [place]. She is not a good informant. She denies fever, chills night sweats. She denies any ocular, visual auditory symptoms. She is wearing sunglasses. She denies any abdominal pain, diarrhea, black or maroon colored stool. She does report symptoms consistent with peripheral arterial disease, claudication. Physical Examination: Patient is heavyset. HEENT exam is unremarkable. Lungs are clear to auscultation. Heart is regular. Abdomen is soft nontender. Is no palpable cell mass abdominal bruit. She has stigmata of peripheral arterial disease lower extremity with absent hair, thickened toenails and absent pulses. Capillary refill is within normal limits. Test Results: EKG reveals a ventricular paced rhythm. Chest x-ray reveals mild cardiomegaly. Blood work is remarkable for an H AND H 11.9 and 38.8. Creatinine is 2.63. Troponin is 0.716. Emergency Department Course and Treatment: Chest pain protocol order set was initiated. Need to rule out cardiac versus noncardiac etiology. With the elevated troponin the hospitalist was paged as well as Dr. Hunter. He requested an echo to be done and to anticoagulate patient with heparin Treatment Plan: Further testing to include echo, heparinization and per Dr. Hunter Disposition: PCU Impression: 1. Midsternal chest pain 2. Elevated troponin 3. End-stage renal disease on hemodialysis 4. History of diabetes 5. History of hypertension 6. History of coronary disease This note was generated with [employer]ation software. It may contain incorrect words, spelling, and punctuation that were not noted in review of the chart prior to signing ED Disposition - Plan for ED Patient: Chief Complaint: Chest Pain Referrals: Mook Kamara MD [Primary Care Provider] - What to do if you have Problems For any increased pain, shortness of breath, bleeding, nausea or vomiting, chest pain, or any unexpected problems, contact your Primary Care Provider. Call [facility] ([phone]) or report to the closest Emergency Room. Call 911 if necessary. 05/11/18 1507 <Electronically signed by Luis Wise MD> Date Luis Wise MD Cosigner Signature (If Indicated): Date CC: Mook Kamara MD; Jesse Hunter MD CBC W/DIFF, AUTOMATED Collected: 05/11/2018 Status: F Source: [place] 2:05 PM [facility] REPOSITORY TYPE CODE TESTS RESULT OUT OF RANGE REFERENCE UNITS LAB L100.1000 4.4-11.0 K/mm3 Normal WBC 5.4 LAB L100.1200 4.2-5.4 M/mm3 Low RBC 4.01 LAB L100.1300 12.0-15.0 g/dl Low HGB 11.9 LAB L100.1400 37-47 % Normal HCT 38.8 LAB L100.1500 81-99 fL Normal MCV 96.8 LAB L100.1600 27.0-32.0 pg Normal MCH 29.7 LAB L100.1700 32-36 g/gl Low MCHC 30.7 LAB L100.1810 11.6-14.6 % High RDW CV 14.9 LAB L100.1820 35.1-43.9 fl High RDW SD 52.9 LAB L100.1900 150-450 K/mm3 Low PLT 134 LAB L100.2000 6.2-12.0 fl Normal MPV 9.7 LAB L100.2100 47-70 % Normal NEUT% 63.3 LAB L100.2200 19-41 % Normal LY% 21.3 LAB L100.2300 0-10 % High MONO% 11.3 LAB L100.2400 0-5 % Normal EO% 3.3 LAB L100.2500 0-1 % Normal BASO% 0.6 LAB L100.2550 0.0-0.9 % Normal IM GRAN % 0.200 Result Comment: IG% - Immature Granulocytes (promyelocytes, myelocytes and metamyelocytes) > 1% indicates that a LEFT SHIFT is Present. LAB L100.2620 2.0-7.7 X10 3/uL Normal Absolute Neut 3.4 LAB L100.2720 0.83-4.51 X10 3/ul Normal Absolute Lymph 1.15 Performed By: #### L100.0100 #### [facility] [address] [place], [address] BASIC METABOLIC Collected: 05/11/2018 Status: F Source: [place] PROFILE (BMP) 2:05 PM [facility] REPOSITORY TYPE CODE TESTS RESULT OUT OF RANGE REFERENCE UNITS LAB L501.0100 74-106 mg/dL Normal GLU 85 Result Comment: Please note revised GLUCOSE reference range effective 2017. LAB L501.1000 7-18 mg/dL Normal BUN 17 LAB L501.1100 0.55-1.02 mg/dL High CREAT,SERUM 2.63 Result Comment: The validity of the calculated GFR AND GFRAA in patients over 70 years has not been determined. Clinical correlation is essential. LAB L501.1110 >60 mL/min Low EST GFR 19 Result Comment: Non- GFR Calc LAB L501.1115 >60 mL/min Low EST GFR - AA 23 Result Comment: GFR Calc LAB L501.1255 ml/min Normal Estimated CRCL 18.36 LAB L501.1300 10-20 RATIO Low BUN/CRE 6.5 LAB L501.2200 8.5-10 mg/dL Normal .1 CA 8.8 LAB L501.5300 136-14 mmol/L Normal 5 NA 141 LAB L501.5600 3.5-5. mmol/L Low 1 K 3.2 LAB L501.5900 98-107 mmol/L Normal CL 99 LAB L501.6100 21.0-3 mmol/L High 2.0 CO2 37.0 LAB L501.6200 5-15 Normal GAP 5 Performed By: #### L500.2500, L501.4010 #### [facility] [address] [place], [address] TROPONIN-I Collected: 05/11/2018 Status: F Source: [place] 2:05 PM [facility] REPOSITORY TYPE CODE TESTS RESULT OUT OF RANGE REFERENCE UNITS LAB L501.4010 <0.045 ng/mL High alert 0.716 TROPONIN-I Result Comment: Critical Result(s) Called at: 14:36:46 05/11/2018 by: Rosalina Marie TROPONIN-I EXPECTED VALUES <0.045 Negative 0.045 - 0.590 Consistent with Cardiac Damage > OR = 0.600 Critical Value Not every elevated troponin is indicative of NE. These values should be used with clinical judgement in examining the patient's clinical picture for diagnosis. To establish a diagnosis of NE versus myocardial injury, there must be a demonstrated rise and/or fall in the troponin values, in addition to ischemic symptoms, EKG changes, new regional wall motion abnormality, and/or angiographical evidence. PLEASE NOTE: REFERENCE RANGES EDITED 18 Performed By: #### L500.2500, L501.4010 #### [facility] [address] [place], [address] PROTHROMBIN TIME W/INR Collected: 05/11/2018 Status: F Source: [place] 2:05 PM [facility] REPOSITORY TYPE CODE TESTS RESULT OUT OF RANGE REFERENCE UNITS LAB L300.4150 11.7-14.9 SECONDS High PROTIME 20.5 LAB L300.4200 Normal INR 1.8 Performed By: #### L300.3900, L300.4310 #### [facility] [address] [place], [address] PARTIAL THROMBOPLAST Collected: 05/11/2018 Status: F Source: [place] TIME 2:05 PM [facility] REPOSITORY TYPE CODE TESTS RESULT OUT OF RANGE REFERENCE UNITS LAB L300.4310 24.1-36.2 Seconds Normal PTT 36.0 Performed By: #### L300.3900, L300.4310 #### [facility] [address] [place], [address] CHEST 1 VIEW Observed: 05/11/2018 Status: F Source: [place] (PORTABLE) 1:43 PM [facility] REPOSITORY [facility] Imaging Services [address] [place] [address] Chest 1 View (Portable) MR#: [id number] Acct: [id number] Name: LUZ BACA Rep #: [id number] : 1940 F 77 From: Juan Francisco Terry MD PCP: Mook Kamara MD Status: REG ER Study: Chest 1 View (Portable) Date of Exam: 05/11/18 Exam# [id number] Ordering Dr: Luis Wise MD STUDY: X-RAY CHEST REASON FOR EXAM: Female, 77 years old. Chest pain and shortness of breath TECHNIQUE: Single AP portable view of the chest. COMPARISON: 04/21/2018 FINDINGS: EKG leads overlie the chest. Stable appearance of a left subclavian pacemaker and right-sided dialysis catheter. Lungs are expanded. Right lung is clear. Left lung continues to show blunting of the left costophrenic angle suggesting a likely combination of atelectasis and small effusion. Sternal cerclage wires and vascular clips are present from a prior sternotomy and coronary artery bypass graft procedure (CABG). Normal mediastinum and samuel. Normal visualized pulmonary arteries. Normal visualized aortic arch and descending thoracic aorta. Normal visualized thoracic spine. Normal visualized ribs, clavicles, and shoulders. There is no demonstrated abnormality of the visualized soft tissue structures of the upper abdomen. RAD/Chest 1 View (Portable) IMPRESSION: No interval change Electronically Signed: Luis Terry MD at 13:56 EDT , Service support , CC: Mook Kamara MD; Luis Wise MD Service Delivery Supervisor: Signed CBC AND DIFFERENTIAL Collected: 05/10/2018 Status: F Source: [place] 5:23 PM [facility] REPOSITORY TYPE CODE TESTS RESULT OUT OF REFERENCE UNITS RANGE LAB WBC 3.70-11.00 k/uL WBC 6.97 LAB RBC 3.90-5.20 m/uL Low RBC 3.81 LAB HGB 11.5-15.5 g/dL Hemoglobin 11.5 LAB HCT 36.0-46.0 % Hematocrit 37.9 LAB MCV 80.0-100.0 fL MCV 99.5 LAB MCH 26.0-34.0 pG MCH 30.2 LAB MCHC 30.5-36.0 g/dL Low MCHC 30.3 LAB RDWCV 11.5-15.0 % RDW-CV 14.7 LAB PLTCT 150-400 k/uL Platelet Count 163 LAB MPV 9.0-12.7 fL MPV 10.2 LAB ANEUT % Neut% 59.7 LAB AANEUT 1.45-7.50 k/uL Abs Neut 4.16 LAB ALYMP % Lymph% 26.3 LAB AALYMP 1.00-4.00 k/uL Abs Lymph 1.83 LAB AMONO % Stoddard% 10.3 LAB AAMONO <0.87 k/uL Abs Stoddard 0.72 LAB AEOS % Eosin% 3.0 LAB AAEOS <0.46 k/uL Abs Eosin 0.21 LAB ABASO % Baso% 0.7 LAB AABASO <0.11 k/uL Abs Baso 0.05 LAB AUNRBC 0 /100 WBC NRBCs 0.0 LAB ABNRBC <0.01 k/uL Absolute nRBC <0.01 LAB DTYP DTYPE Auto Diff Performed By: #### CBCDIF #### [facility] [address] [place], [place] [address] JONA Observed: 05/10/2018 Status: COMPLETED Source: [place] 12:00 AM [facility] REPOSITORY Telephone (FAMPWS) KEVENLUZ Salvador ([id number]) 1940 F Date Time Provider Department 05/10/18 JAMESON KAMARA) [facility] During your visit today, we recorded the following information about you: Ronald Dias 05/10/2018 2:18 PM Signed Cristina / [employer] [facility] calls stating she had heard patient is scheduled for consult with gen surgery 05/26/18 for + FOBT. Says she had a nurse visit with the patient today and wanted to relay the following information to pcp: Patient takes Eliquis 5 mg BID for afib since 2015 Was advised per 05/02/18 phone note to hold Reglan for 2 to 3 days to see if following symptoms improve; hyperactive BS; abdominal pain (per phone note). Cristina says symptoms not improved. Patient has constant transverse abdominal pain rating it a 6/10, +constipation. Has small really dark stool every other day. Says today it took patient 1 hour to pass stool. Denies sob, chest pain. Says abdominal pain is not waking her up at night. BP today 116/58; HR 61; skin color unchanged from previous visits. Patient is a dialysis patient with h/o COPD; wears 2.5 L O2 . Any orders? Adriel Pringle APRN.BACKHAUL DRIVER 05/10/2018 4:20 PM Signed Discussed with Dr. Kamara and he recommends starting miralax and increasing fiber in diet for the constipation. Need to get CBC today. We will wait and see what that shows to see if any other changes are needed. If any black tarry stools, seeing blood in stool, anemia symptoms or worsening symptoms in any way should go to ED. Telephone on 05/10/18 -CBC + DIFF Adriel Pringle APRN.ELÍAS Kennedy RN 05/10/2018 5:32 PM Addendum PRIMARY CARE COORDINATION FOLLOW-UP NOTE Provider Action/FYI FYI Patient identified by name and date of . YES Spoke to patient Summary: TC to daughter, instructed pt to start Miralax and increase fiber in diet for constipation. Verbalized understanding and agreement but states she thinks the constipation follows dialysis like they are drying her out too much. Discussed dgt talking to dialysis and telling them the problem with constipation pt is having. Instructed if pt takes Miralax and increases fiber she needs to make sure and drink her daily fluids to prevent the constipation, verbalized agreement. Remi Kennedy RN May 10, 2018 5:32 PM TC to patient, instructed PCP wants her to come in this afternoon for labs. He wants to make sure her Hgb is not dropping because if it is that could indicate she is bleeding, verbalized understanding and agreement. Remi Kennedy RN States for the past few weeks patient has been having alternating diarrhea and constipation. Stools are dark but they are not black and tarry or sticky and no visible blood. Asked pt if she has taken pepto bismol or OTC Fe, states no. Remi Kennedy RN Watermelon Inspector plan for next outreach: Will follow up one week Signature Remi Kennedy RN May 10, 2018 Adriel Pringle APRN.ELÍAS 05/10/2018 9:29 PM Signed Reviewed. Adriel Pringle APRN.ELÍAS Allergies As of Date: 05/10/2018 Noted Allergy Reaction ASPIRIN 01/20/2018 14 - Other: See Comments Comments: Patient states that she bled out every orifice, sts not allowed to take it at all. Patient states she was bleeding out of nose and mouth after one dose. BACTRIM (SULFAMETHOXAZOLE-TRIMETH*05/17/2017 14 - Other: See Comments Comments: My throat swells up. LATEX 05/17/2017 2 - Rash 9 - Itching Comments: Itching and welts. No wheezing or shortness of breath. PENICILLINS 07/14/2004 2 - Rash 9 - Itching Comments: Tolerated ceftriaxone during 11/2017 admission and cefepime during 12/2017 admission TETRACYCLINE 09/29/2010 2 - Rash 8 - GI Upset Comments: Emesis and diarrhea. ATORVASTATIN 05/17/2017 2 - Rash CODEINE 05/17/2017 14 - Other: See Comments Comments: Numbness DILAUDID (HYDROMORPHONE (BULK)) 05/17/2017 1 - Mental Status Change MEPERIDINE 07/14/2004 PENTAZOCINE 07/14/2004 PIOGLITAZONE 05/17/2017 16 - Unknown PROPOXYPHENE 07/14/2004 Date Reviewed: 05/03/2018 Reviewed by: Sohail Longoria Ma - Fully Assessed Reason for Visit: Multiple Concerns [253] Primary Visit Diagnosis:Dark stools [R19.5] Order(s):CBC + DIFF [SQCBCDIF] Order #: [id number] FUTURE Prescriptions as of 05/10/2018 Sig: BUMETANIDE 2 MG TABLET Take 1.5 tablets by mouth twi* SIMVASTATIN 20 MG TABLET Take 1 tablet by mouth every * CEPHALEXIN 500 MG CAPSULE Take 500 mg by mouth twice da* SENNOSIDES 8.6 MG TABLET Take 8.6 mg by mouth once carlos* HYDROCODONE 5 MG-ACETAMINOPHE* Take 1 tablet by mouth every * TRAZODONE 50 MG TABLET Take 50 mg by mouth daily at * TRAMADOL 50 MG TABLET Take 50 mg by mouth every 8 h* OMEPRAZOLE 20 MG CAPSULE,COY* Take 20 mg by mouth once janeth* ONDANSETRON HCL 4 MG TABLET Take 4 mg by mouth every 8 ho* IPRATROPIUM-ALBUTEROL 0.5 MG-* Inhale 3 mL as instructed leanne* BUDESONIDE 0.5 MG/2 ML SUSPEN* Use 2 mL via nebulizer once d* AMIODARONE 200 MG TABLET Take 1 tablet by mouth once d* CARVEDILOL 3.125 MG TABLET Take 1 tablet by mouth twice * GABAPENTIN 100 MG CAPSULE Take 1 capsule by mouth twice* MELATONIN 3 MG TABLET Take 1 tablet by mouth daily * TORSEMIDE 10 MG TABLET Take 5 tablets by mouth once * INSULIN ASPART U-100 100 UNI* Inject 12 Units subcutaneousl* INSULIN GLARGINE (U-100) 100 * Inject 50 Units subcutaneousl* INSULIN GLARGINE (U-100) 100 * Inject 36 Units subcutaneousl* PANTOPRAZOLE 40 MG TABLET,DEL* Take 40 mg by mouth twice carlos* BACITRACIN ZINC 500 UNIT/GRAM* Apply 1 application to affect* Patient not taking: Reported on 03/17/2018 NYSTATIN 100,000 UNIT/GRAM TO* Apply 1 application to affect* Patient not taking: Reported on 03/17/2018 ISOSORBIDE MONONITRATE ER 60 * Take 1 tablet by mouth once d* APIXABAN 5 MG TABLET Take 5 mg by mouth twice janeth* DEXTROMETHORPHAN-GUAIFENESIN * Take 5-10 mL by mouth every 6* NITROGLYCERIN 0.4 MG SUBLINGU* Dissolve 1 tablet under the t* OXYGEN (HOME THERAPY) Inhale 2.5 L/min as instructe* Problem List As Of Date 05/10/2018 Noted Resolved HOCM (hypertrophic obstructive cardiomyopathy) * 01/23/2018 Priority: I More... SVT (supraventricular tachycardia) (HCC) [I47.1] 01/21/2018 More... Carotid artery disease (HCC) [I77.9] 01/22/2018 CAD (coronary artery disease) [I25.10] Priority: E More... Hypertension [I10] Priority: L More... Hyperlipidemia [E78.5] Pneumonia [J18.9] 10/27/2017 More... COPD (chronic obstructive pulmonary disease) (H* Priority: F More... Sleep apnea [G47.30] Priority: I More... HH (hiatus hernia) [K44.9] 01/21/2018 GERD (gastroesophageal reflux disease) [K21.9] Priority: K More... More... Arthritis [M19.90] Numbness and tingling of right leg [R20.0, R20.* 01/21/2018 Depression [F32.9] Atrial fibrillation (HCC) [I48.91] INVALID FOR* Priority: C More... Uncontrolled type 2 diabetes mellitus with stag*INVALID FOR* Priority: H More... More... More... Heart failure, systolic, acute (HCC) [I50.21] INVALID FOR*01/21/2018 More... Obesity [E66.09] INVALID FOR* Priority: M More... Gout [M10.9] Pacemaker [Z95.0] Priority: D More... Chronic combined systolic and diastolic CHF (co*INVALID FOR* Priority: B More... Elevated troponin [R74.8] INVALID FOR*01/22/2018 Priority: G More... Pulmonary hypertension (HCC) [I27.20] INVALID FOR* Oral thrush [B37.0] INVALID FOR*01/21/2018 Hyponatremia [E87.1] INVALID FOR* Priority: J More... Hyperkalemia [E87.5] INVALID FOR*01/22/2018 Priority: J Chest pain in adult [R07.9] INVALID FOR*02/12/2018 Priority: A More... Acute renal failure superimposed on stage 3 chr*INVALID FOR* Priority: A More... Obesity, Class II, BMI 35-39.9 [E66.9] INVALID FOR* Encounter Status:Closed by REMI KENNEDY on 05/10/18 PROGRESS Observed: 05/04/2018 Status: COMPLETED Source: [place] 3:01 PM [facility] REPOSITORY HNO ID: [id number] Author: Remi (Rn) Brent Service: (none) Author Type: Registered Nurse Type: Progress Notes Filed: 05/04/2018 3:02 PM Note Text: PRIMARY CARE COORDINATION QUICK NOTE Provider Action/FYI Wheelchair script, face to face notes and PT/OT evals faxed to [facility] Patient identified by name and date . Received PT/OT evaluations from [facility] C DIFFICILE PCR Collected: 05/04/2018 Status: F Source: [place] 11:29 AM [facility] REPOSITORY TYPE CODE TESTS RESULT OUT OF REFERENCE UNITS RANGE LAB CDFRES C difficile PCR Specimen rejected. Formed stool received, only non-formed stool is acceptable for C. difficile toxin assay. Result Comment: [place] Observed: 05/04/2018 Status: F Source: [place] FECAL LACTOFERRIN 9:30 AM [facility] REPOSITORY Sp. Request/Comment: - Specimen received in sterile container. Test Result - Positive for lactoferrin, which may indicate presence of fecal white blood cells Performed By: #### STLWBC #### [facility] [address] [place], [place] [address] ENTERIC BACT PNL PCR Collected: 05/04/2018 Status: F Source: [place] 9:30 AM [facility] REPOSITORY TYPE CODE TESTS RESULT OUT OF REFERENCE UNITS RANGE LAB PCRSHG Shigella/EIEC Not Detected DNA LAB PCRCMP Campy jejun/coli DNA Not Detected LAB PCRSTX Shiga toxin gene(s) Not Detected LAB PCRSAL Salmonella spp. Not Detected DNA Performed By: #### STLPCR #### [facility] [place] [address] [id number] FECAL OCCULT BLD Collected: 05/04/2018 Status: F Source: [place] TST 9:30 AM [facility] REPOSITORY TYPE CODE TESTS RESULT OUT OF RANGE REFERENCE UNITS LAB IFO Negative Abnormal Alert Immuno Positive FOB Result Comment: This test was developed and its performance characteristics determined by [facility] [place] ([facility] It has not been cleared or approved by the FDA. -[facility] is regulated under CLIA as qualified to perform high-complexity testing. This test is used for clinical purposes. It should not be regarded as investigational or for research. Performed By: #### IFOBT #### [facility] [address] [id number] CBC AND DIFFERENTIAL Collected: 05/03/2018 Status: F Source: [place] 12:08 PM [facility] REPOSITORY TYPE CODE TESTS RESULT OUT OF REFERENCE UNITS RANGE LAB WBC 3.70-11.00 k/uL WBC 6.43 LAB RBC 3.90-5.20 m/uL RBC 4.06 LAB HGB 11.5-15.5 g/dL Hemoglobin 12.3 LAB HCT 36.0-46.0 % Hematocrit 41.1 LAB MCV 80.0-100.0 fL MCV High 101.2 LAB MCH 26.0-34.0 pG MCH 30.3 LAB MCHC 30.5-36.0 g/dL Low MCHC 29.9 LAB RDWCV 11.5-15.0 % RDW-CV High 15.2 LAB PLTCT 150-400 k/uL Platelet Count 174 LAB MPV 9.0-12.7 fL MPV 10.4 LAB ANEUT % Neut% 62.1 LAB AANEUT 1.45-7.50 k/uL Abs Neut 3.97 LAB ALYMP % Lymph% 22.7 LAB AALYMP 1.00-4.00 k/uL Abs Lymph 1.46 LAB AMONO % Stoddard% 10.4 LAB AAMONO <0.87 k/uL Abs Stoddard 0.67 LAB AEOS % Eosin% 3.9 LAB AAEOS <0.46 k/uL Abs Eosin 0.25 LAB ABASO % Baso% 0.9 LAB AABASO <0.11 k/uL Abs Baso 0.06 LAB AUNRBC 0 /100 WBC NRBCs 0.0 LAB ABNRBC <0.01 k/uL Absolute nRBC <0.01 LAB DTYP DTYPE Auto Diff Performed By: #### CBCDIF #### [facility] [address] [place], [place] [address] PROGRESS Observed: 05/03/2018 Status: COMPLETED Source: [place] 11:31 AM [facility] REPOSITORY HNO ID: [id number] Author: Remi Briseno) Brent Service: (none) Author Type: Registered Nurse Type: Progress Notes Filed: 05/04/2018 3:02 PM Note Text: PRIMARY CARE COORDINATION IN OFFICE VISIT WITH PCP Patient has been identified by name and date of . PCP Assessment/Plan: Reviewed PCP plan with patient using Teach Back Pt will get stool specimens. PCC will work on wheelchair order PCC Plan of Care: Patient concerns: Having foul smelling diarrhea x 1 week Patient having LE weakness and has been trying to get a wheelchair for home PCC Interventions: TC nia Marcelo, Heading And Priming Operator at [facility], asked to fax OT and PT notes on patient because we are trying to get a wheelchair for patient, she will fax. Next Office Visit: Visit date not found Plan For Next Call: One week Remi Kennedy RN May 03, 2018 PROGRESS Observed: 05/03/2018 Status: COMPLETED Source: [place] 11:28 AM [facility] REPOSITORY HNO ID: [id number] Author: Adriel Pringle Service: (none) Author Type: Nurse Practitioner Type: Progress Notes Filed: 05/04/2018 10:41 AM Note Text: 05/03/2018 Patient presents with: ER F/U: chest pain SUBJECTIVE: This is a 77 year old that is here today for Hospital follow up. 04/21/18- 04/22/18. She was initially seen in [place] ER for complaints of CP and they were concerned for pneumonia so treated her with levaquin and vanco and was sent to [facility] ER. When she got to that ER, she said that she was seen for lightheadedness at HD. CXR showed retrocardiac infiltrate vs atelectasis. She was admitted for observation. They did not feel that this was a pneumonia. They felt that the CP was related to her cardiac history and costrocondritis and they contacted Dr. Cardona who ordered a stress test that was negative for reversible ischemia but evidence of previous apical infarct as well as basal inferior septal infarct. Dr. Swartz was also contacted while she was there regarding her vitamin D and osteoporosis risk. She is to continue HD on MWF. Hospital records will be scanned into the chart. She is here today with her Daughter Octavia. Pt states that she is doing ok. She is wearing her 2L Os via NC. Her main concern today is that she has been having stomach upset and diarrhea for 2-3 days. She is able to tolerate food and she feels that she is eating too much. She is drinking as much fluid as she is allowed. She denies fever or chills. No blood in the stool. mushy consistency, not watery. A couple times a day. + foul odor. Not sure if it is mucous consistency. BP is low today and she states that it has been both at home with the home nurse checks as well as her own and at dialysis. They have gotten some high readings at home as well on her home cuff. She states that she is not sure that she would call it dizziness with position changes, but she does not feel right with them. Yesterday, her dialysis physician changed her medication to sow that she will not be taking the bumetanide daily. She will now hold it on dialysis days. She has leg weakness in addition to being symptomatic with the position changes and they do not have a wheelchair at home. Octavia mentions that attempts have been made through [employer] [facility] [employer] and homecare, but they were not successful yet. They are asking for an attempt be made on our end. Mentioned to her that I have not seen her in several months and she has a lot less fluid retention, but I did not recall her lower legs being as discolored as they are. Octavia states that they have been like this for several months and she is following with Dr. Hogan with an upcoming appointment scheduled for next week. She also continues to have CP a couple times a day usually only lasting seconds. She is scheduled to see Dr. Cardona 05/24/18 and wondering if she should be seen sooner. PAST MEDICAL HISTORY Diagnosis Date - Arthritis - Atrial fibrillation ([facility]) - CAD (coronary artery disease) stents x9, defibrillator, CABG. Seeing Dr. Cardona - Cardiac defibrillator in place - Cardiomegaly - Carotid artery disease ([facility]) left - Chronic kidney disease (CKD) stage G3b/A2, moderately decreased glomerular filtration rate (GFR) between 30-44 mL/min/1.73 square meter and albuminuria creatinine ratio between 30-299 mg/g ([facility]) Dr. Martin - COPD (chronic obstructive pulmonary disease) ([facility]) Dr. Cruz - Depression - Diabetes ([facility]) - Diabetic neuropathy ([facility]) - Edema - GERD (gastroesophageal reflux disease) - Gout with hyperuricemia - HH (hiatus hernia) - HOCM (hypertrophic obstructive cardiomyopathy) ([facility]) S/P Septal Myectomy in 2003. Now with LVEF 50% and mod/severe pulm HTN. - HTN (hypertension) - Hyperlipidemia - Morbid obesity with BMI of 40.0-44.9, adult ([facility]) - Sleep apnea 2011 not on CPAP, unable to tolerate mask 02/2017 - SVT (supraventricular tachycardia) ([facility]) NSVT and questionable VT in 2003 post op ALLERGIES Aspirin; Bactrim [Sulfamethoxazole-Trimethoprim]; Latex; Penicillins; Tetracycline; Atorvastatin; Codeine; Dilaudid [Hydromorphone (Bulk)]; Meperidine; Pentazocine; Pioglitazone; Propoxyphene MEDICATIONS Current Outpatient Prescriptions: simvastatin (ZOCOR) 40 mg tablet Take 0.5 tablets by mouth every morning. senna (SENNA) 8.6 mg tab Take 8.6 mg by mouth once daily. HYDROcodone-acetaminophen (NORCO) 5-325 mg per tablet Take 1 tablet by mouth every 8 hours as needed. bumetanide (BUMEX) 2 mg tablet Take 2.5 mg by mouth twice daily. traZODone (DESYREL) 50 mg tablet Take 50 mg by mouth daily at bedtime. traMADol (ULTRAM) 50 mg tablet Take 50 mg by mouth every 8 hours as needed. omeprazole (PRILOSEC) 20 mg capsule Take 20 mg by mouth once daily. ondansetron (ZOFRAN) 4 mg tablet Take 4 mg by mouth every 8 hours as needed. ipratropium-albuterol (DUONEB) 0.5 mg-3 mg(2.5 mg base)/3 mL nebu Inhale 3 mL as instructed every 4 hours while awake. And prn for wheezing/shortness of breath. budesonide (PULMICORT) 0.5 mg/2 mL nebulizer solution Use 2 mL via nebulizer once daily. INHALE 2 ML BY NEBULIZER OVER 5-15 MINUTES EVERY 12 HOURS. amiodarone (PACERONE) 200 mg tablet Take 1 tablet by mouth once daily. carvedilol (COREG) 3.125 mg tablet Take 1 tablet by mouth twice daily with meals. insulin aspart U-100 (NOVOLOG FLEXPEN U-100 INSULIN) 100 unit/mL inpn Inject 12 Units subcutaneously three times daily with meals. insulin glargine (LANTUS SOLOSTAR U-100 INSULIN) 100 unit/mL (3 mL) inpn Inject 50 Units subcutaneously every morning. insulin glargine (LANTUS SOLOSTAR U-100 INSULIN) 100 unit/mL (3 mL) inpn Inject 36 Units subcutaneously daily at bedtime. isosorbide mononitrate ER (IMDUR) 60 mg 24 hr tablet Take 1 tablet by mouth once daily. apixaban (ELIQUIS) 5 mg tab(s) Take 5 mg by mouth twice daily. nitroglycerin sublingual (NITROQUICK) 0.4 mg SL tablet Dissolve 1 tablet under the tongue every 5 minutes as needed. OXYGEN, HOME THERAPY, Inhale 2.5 L/min as instructed continuous. 3 L/min when leaves home. cephALEXin (KEFLEX) 500 mg capsule Take 500 mg by mouth twice daily. gabapentin (NEURONTIN) 100 mg capsule Take 1 capsule by mouth twice daily for 30 days. melatonin 3 mg tablet Take 1 tablet by mouth daily at bedtime. torsemide (DEMADEX) 10 mg tablet Take 5 tablets by mouth once daily. pantoprazole DR (PROTONIX) 40 mg tablet Take 40 mg by mouth twice daily. bacitracin (ANTIBIOTIC, BACITRACIN ZINC,) ointment Apply 1 application to affected area twice daily. (Patient not taking: Reported on 03/17/2018 ) nystatin (NYSTOP) powder Apply 1 application to affected area three times daily. (Patient not taking: Reported on 03/17/2018 ) guaiFENesin-dextromethorphan (ROBITUSSIN DM) 100-10 mg/5 mL syrup Take 5-10 mL by mouth every 6 hours as needed for Cough. No current facility-administered medications for this visit. Medications and allergies reviewed by this provider. SOCIAL HISTORY Social History Marital status: Spouse name: Years of education: Number of children: Social History Main Topics Smoking status: Former Smoker Packs/day: 2.50 Years: 43.00 Types: Cigarettes Start date: 1961 Quit date: 07/07/2004 Smokeless tobacco: Never Used Alcohol use: No Drug use: No Other Topics Concern Caffeine Concern Yes Comment:coffee 1 cup daily Special Diet No Comment:Regular Exercise No Comment:no unable, due to SOB x several months. Social History Narrative Patient and daughter live together. REVIEW OF SYSTEMS see HPI OBJECTIVE: BP 88/50 (BP Site: Left Arm, BP Position: Sitting, BP Cuff Size: Large Adult) Pulse 60 Temp 36.3 ?C (97.4 ?F) (Left Tympanic) Resp 20 Wt 105.2 kg (232 lb) SpO2 95% BMI 35.28 kg/m? . Vital signs reviewed by this provider. PHYSICAL EXAMINATION: General appearance: Well appearing, alert, in no acute distress, well-hydrated, well nourished. and Obese Neck: Supple, no adenopathy; thyroid symmetric, normal size, no bruits Lungs: Lungs clear to auscultation. No wheezing, rhonchi, rales Heart: RRR without murmur, gallop, or rubs. No ectopy. No chest pain with palpation. Abdomen: Abdomen soft. Bowel sounds normal. No masses, organomegaly. Mild generalized tenderness. Extremities: Pulses: 1+, Positive findings: tenderness to bilateral lower extremities. No edema. Skin color of lower extremities purple and rough texture. ASSESSMENT/PLAN: 1. Follow up - ICD9: V67.9, ICD10: Z09 (primary diagnosis) - CP continues but short episodes. Will contact Dr. Cardona to see if he feels that appointment should be moved up or if there is anything that should be done prior. - symptomatic with position changes. Concern for falls. Will order a wheelchair and Remi Kennedy agreed to assist in obtaining. Encouraged to continue to follow up with Nephrology for BP control. Will also mention this to Dr. Cardona as well. Continue with home BP checks and call Remi if any concerns. 2. Acute renal failure superimposed on stage 3 chronic kidney disease, unspecified acute renal failure type (HCC) - ICD9: 584.9, 585.3, ICD10: N17.9, N18.3 - Continue with Nephrology and HD as planned 3. Chronic combined systolic and diastolic CHF (congestive heart failure) (HCC) - ICD9: 428.42, 428.0, ICD10: I50.42 - Follow up with Dr. Cardona as planned 4. Hemodialysis-associated hypotension - ICD9: 458.21, ICD10: I95.3 - see above - STANDARD WHEELCHAIR 5. Generalized abdominal pain - ICD9: 789.07, ICD10: R10.84 - Concern for infection related to frequent hospital and ECF stay - encouraged diet as tolerated and fluids as per dialysis restrictions - follow up if any new symptoms - C. DIFFICILE PCR - ENTERIC BACTERIAL PANEL BY PCR - FECAL OCCULT BLOOD TEST - FECAL LACTOFERRIN/LEUKOCYTES - CBC + DIFF 6. Diarrhea of presumed infectious origin - ICD9: 009.3, ICD10: R19.7 - see above - C. DIFFICILE PCR - ENTERIC BACTERIAL PANEL BY PCR - FECAL OCCULT BLOOD TEST - FECAL LACTOFERRIN/LEUKOCYTES - CBC + DIFF 7. Leg weakness, bilateral - ICD9: 729.89, ICD10: R29.898 - encouraged to continue with PT and OT - Discussed and encouraged home safety - STANDARD WHEELCHAIR 8. Dizziness - ICD9: 780.4, ICD10: R42 - see above - STANDARD WHEELCHAIR Adriel Pringle APRN.BACKHAUL DRIVER [place] Observed: 05/03/2018 Status: COMPLETED Source: [place] 10:20 AM [facility] REPOSITORY Office Visit (FAMPWS) LUZ BACA ([id number]) 1940 F Date Time Provider Department 05/03/18 10:20 AM ADRIEL PRINGLE (ELÍAS) ANTOINE During your visit today, we recorded the following information about you: Temperature Pulse Respiration Blood pressure 97.4 degrees 60/minute 20/minute 88/50 Weight 105.2 kg Adriel Pringle APRN.CNP 05/04/2018 10:41 AM Signed 05/03/2018 Patient presents with: ER F/U: chest pain SUBJECTIVE: This is a 77 year old that is here today for Hospital follow up. 04/21/18- 04/22/18. She was initially seen in [place] ER for complaints of CP and they were concerned for pneumonia so treated her with levaquin and vanco and was sent to [facility] ER. When she got to that ER, she said that she was seen for lightheadedness at HD. CXR showed retrocardiac infiltrate vs atelectasis. She was admitted for observation. They did not feel that this was a pneumonia. They felt that the CP was related to her cardiac history and costrocondritis and they contacted Dr. Cardona who ordered a stress test that was negative for reversible ischemia but evidence of previous apical infarct as well as basal inferior septal infarct. Dr. Swartz was also contacted while she was there regarding her vitamin D and osteoporosis risk. She is to continue HD on MWF. Hospital records will be scanned into the chart. She is here today with her Daughter Octavia. Pt states that she is doing ok. She is wearing her 2L Os via NC. Her main concern today is that she has been having stomach upset and diarrhea for 2-3 days. She is able to tolerate food and she feels that she is eating too much. She is drinking as much fluid as she is allowed. She denies fever or chills. No blood in the stool. mushy consistency, not watery. A couple times a day. + foul odor. Not sure if it is mucous consistency. BP is low today and she states that it has been both at home with the home nurse checks as well as her own and at dialysis. They have gotten some high readings at home as well on her home cuff. She states that she is not sure that she would call it dizziness with position changes, but she does not feel right with them. Yesterday, her dialysis physician changed her medication to sow that she will not be taking the bumetanide daily. She will now hold it on dialysis days. She has leg weakness in addition to being symptomatic with the position changes and they do not have a wheelchair at home. Octavia mentions [facility], but they were not successful yet. They are asking for an attempt be made on our end. Mentioned to her that I have not seen her in several months and she has a lot less fluid retention, but I did not recall her lower legs being as discolored as they are. Octavia states that they have been like this for several months and she is following with Dr. Hogan with an upcoming appointment scheduled for next week. She also continues to have CP a couple times a day usually only lasting seconds. She is scheduled to see Dr. Cardona 05/24/18 and wondering if she should be seen sooner. PAST MEDICAL HISTORY Diagnosis Date - Arthritis - Atrial fibrillation ([facility]) - CAD (coronary artery disease) stents x9, defibrillator, CABG. Seeing Dr. Cardona - Cardiac defibrillator in place - Cardiomegaly - Carotid artery disease ([facility]) left - Chronic kidney disease (CKD) stage G3b/A2, moderately decreased glomerular filtration rate (GFR) between 30-44 mL/min/1.73 square meter and albuminuria creatinine ratio between 30-299 mg/g ([facility]) Dr. Martin - COPD (chronic obstructive pulmonary disease) ([facility]) Dr. Cruz - Depression - Diabetes ([facility]) - Diabetic neuropathy ([facility]) - Edema - GERD (gastroesophageal reflux disease) - Gout with hyperuricemia - HH (hiatus hernia) - HOCM (hypertrophic obstructive cardiomyopathy) ([facility]) S/P Septal Myectomy in 2003. Now with LVEF 50% and mod/severe pulm HTN. - HTN (hypertension) - Hyperlipidemia - Morbid obesity with BMI of 40.0-44.9, adult ([facility]) - Sleep apnea 2011 not on CPAP, unable to tolerate mask 02/2017 - SVT (supraventricular tachycardia) ([facility]) NSVT and questionable VT in 2003 post op ALLERGIES Aspirin; Bactrim [Sulfamethoxazole-Trimethoprim]; Latex; Penicillins; Tetracycline; Atorvastatin; Codeine; Dilaudid [Hydromorphone (Bulk)]; Meperidine; Pentazocine; Pioglitazone; Propoxyphene MEDICATIONS Current Outpatient Prescriptions: simvastatin (ZOCOR) 40 mg tablet Take 0.5 tablets by mouth every morning. senna (SENNA) 8.6 mg tab Take 8.6 mg by mouth once daily. HYDROcodone-acetaminophen (NORCO) 5-325 mg per tablet Take 1 tablet by mouth every 8 hours as needed. bumetanide (BUMEX) 2 mg tablet Take 2.5 mg by mouth twice daily. traZODone (DESYREL) 50 mg tablet Take 50 mg by mouth daily at bedtime. traMADol (ULTRAM) 50 mg tablet Take 50 mg by mouth every 8 hours as needed. omeprazole (PRILOSEC) 20 mg capsule Take 20 mg by mouth once daily. ondansetron (ZOFRAN) 4 mg tablet Take 4 mg by mouth every 8 hours as needed. ipratropium-albuterol (DUONEB) 0.5 mg-3 mg(2.5 mg base)/3 mL nebu Inhale 3 mL as instructed every 4 hours while awake. And prn for wheezing/shortness of breath. budesonide (PULMICORT) 0.5 mg/2 mL nebulizer solution Use 2 mL via nebulizer once daily. INHALE 2 ML BY NEBULIZER OVER 5-15 MINUTES EVERY 12 HOURS. amiodarone (PACERONE) 200 mg tablet Take 1 tablet by mouth once daily. carvedilol (COREG) 3.125 mg tablet Take 1 tablet by mouth twice daily with meals. insulin aspart U-100 (NOVOLOG FLEXPEN U-100 INSULIN) 100 unit/mL inpn Inject 12 Units subcutaneously three times daily with meals. insulin glargine (LANTUS SOLOSTAR U-100 INSULIN) 100 unit/mL (3 mL) inpn Inject 50 Units subcutaneously every morning. insulin glargine (LANTUS SOLOSTAR U-100 INSULIN) 100 unit/mL (3 mL) inpn Inject 36 Units subcutaneously daily at bedtime. isosorbide mononitrate ER (IMDUR) 60 mg 24 hr tablet Take 1 tablet by mouth once daily. apixaban (ELIQUIS) 5 mg tab(s) Take 5 mg by mouth twice daily. nitroglycerin sublingual (NITROQUICK) 0.4 mg SL tablet Dissolve 1 tablet under the tongue every 5 minutes as needed. OXYGEN, HOME THERAPY, Inhale 2.5 L/min as instructed continuous. 3 L/min when leaves home. cephALEXin (KEFLEX) 500 mg capsule Take 500 mg by mouth twice daily. gabapentin (NEURONTIN) 100 mg capsule Take 1 capsule by mouth twice daily for 30 days. melatonin 3 mg tablet Take 1 tablet by mouth daily at bedtime. torsemide (DEMADEX) 10 mg tablet Take 5 tablets by mouth once daily. pantoprazole DR (PROTONIX) 40 mg tablet Take 40 mg by mouth twice daily. bacitracin (ANTIBIOTIC, BACITRACIN ZINC,) ointment Apply 1 application to affected area twice daily. (Patient not taking: Reported on 03/17/2018 ) nystatin (NYSTOP) powder Apply 1 application to affected area three times daily. (Patient not taking: Reported on 03/17/2018 ) guaiFENesin-dextromethorphan (ROBITUSSIN DM) 100-10 mg/5 mL syrup Take 5-10 mL by mouth every 6 hours as needed for Cough. No current facility-administered medications for this visit. Medications and allergies reviewed by this provider. SOCIAL HISTORY Social History Marital status: Spouse name: Years of education: Number of children: Social History Main Topics Smoking status: Former Smoker Packs/day: 2.50 Years: 43.00 Types: Cigarettes Start date: 1961 Quit date: 07/07/2004 Smokeless tobacco: Never Used Alcohol use: No Drug use: No Other Topics Concern Caffeine Concern Yes Comment:coffee 1 cup daily Special Diet No Comment:Regular Exercise No Comment:no unable, due to SOB x several months. Social History Narrative Patient and daughter live together. REVIEW OF SYSTEMS see HPI OBJECTIVE: BP 88/50 (BP Site: Left Arm, BP Position: Sitting, BP Cuff Size: Large Adult) Pulse 60 Temp 36.3 ?C (97.4 ?F) (Left Tympanic) Resp 20 Wt 105.2 kg (232 lb) SpO2 95% BMI 35.28 kg/m? . Vital signs reviewed by this provider. PHYSICAL EXAMINATION: General appearance: Well appearing, alert, in no acute distress, well-hydrated, well nourished. and Obese Neck: Supple, no adenopathy; thyroid symmetric, normal size, no bruits Lungs: Lungs clear to auscultation. No wheezing, rhonchi, rales Heart: RRR without murmur, gallop, or rubs. No ectopy. No chest pain with palpation. Abdomen: Abdomen soft. Bowel sounds normal. No masses, organomegaly. Mild generalized tenderness. Extremities: Pulses: 1+, Positive findings: tenderness to bilateral lower extremities. No edema. Skin color of lower extremities purple and rough texture. ASSESSMENT/PLAN: 1. Follow up - ICD9: V67.9, ICD10: Z09 (primary diagnosis) - CP continues but short episodes. Will contact Dr. Cardona to see if he feels that appointment should be moved up or if there is anything that should be done prior. - symptomatic with position changes. Concern for falls. Will order a wheelchair and Remi Kennedy agreed to assist in obtaining. Encouraged to continue to follow up with Nephrology for BP control. Will also mention this to Dr. Cardona as well. Continue with home BP checks and call Remi if any concerns. 2. Acute renal failure superimposed on stage 3 chronic kidney disease, unspecified acute renal failure type (HCC) - ICD9: 584.9, 585.3, ICD10: N17.9, N18.3 - Continue with Nephrology and HD as planned 3. Chronic combined systolic and diastolic CHF (congestive heart failure) (HCC) - ICD9: 428.42, 428.0, ICD10: I50.42 - Follow up with Dr. Cardona as planned 4. Hemodialysis-associated hypotension - ICD9: 458.21, ICD10: I95.3 - see above - STANDARD WHEELCHAIR 5. Generalized abdominal pain - ICD9: 789.07, ICD10: R10.84 - Concern for infection related to frequent hospital and ECF stay - encouraged diet as tolerated and fluids as per dialysis restrictions - follow up if any new symptoms - C. DIFFICILE PCR - ENTERIC BACTERIAL PANEL BY PCR - FECAL OCCULT BLOOD TEST - FECAL LACTOFERRIN/LEUKOCYTES - CBC + DIFF 6. Diarrhea of presumed infectious origin - ICD9: 009.3, ICD10: R19.7 - see above - C. DIFFICILE PCR - ENTERIC BACTERIAL PANEL BY PCR - FECAL OCCULT BLOOD TEST - FECAL LACTOFERRIN/LEUKOCYTES - CBC + DIFF 7. Leg weakness, bilateral - ICD9: 729.89, ICD10: R29.898 - encouraged to continue with PT and OT - Discussed and encouraged home safety - STANDARD WHEELCHAIR 8. Dizziness - ICD9: 780.4, ICD10: R42 - see above - STANDARD WHEELCHAIR Adriel Rutti, LOCAL DRIVER.BACKHAUL DRIVER Referring Provider: SELF [[id number]] Allergies As of Date: 05/03/2018 Noted Allergy Reaction ASPIRIN 01/20/2018 14 - Other: See Comments Comments: Patient states that she bled out every orifice, sts not allowed to take it at all. Patient states she was bleeding out of nose and mouth after one dose. BACTRIM (SULFAMETHOXAZOLE-TRIMETH*05/17/2017 14 - Other: See Comments Comments: My throat swells up. LATEX 05/17/2017 2 - Rash 9 - Itching Comments: Itching and welts. No wheezing or shortness of breath. PENICILLINS 07/14/2004 2 - Rash 9 - Itching Comments: Tolerated ceftriaxone during 11/2017 admission and cefepime during 12/2017 admission TETRACYCLINE 09/29/2010 2 - Rash 8 - GI Upset Comments: Emesis and diarrhea. ATORVASTATIN 05/17/2017 2 - Rash CODEINE 05/17/2017 14 - Other: See Comments Comments: Numbness DILAUDID (HYDROMORPHONE (BULK)) 05/17/2017 1 - Mental Status Change MEPERIDINE 07/14/2004 PENTAZOCINE 07/14/2004 PIOGLITAZONE 05/17/2017 16 - Unknown PROPOXYPHENE 07/14/2004 Date Reviewed: 05/03/2018 Reviewed by: Sohail Longoria Ma - Fully Assessed Reason for Visit: ER F/U [41] Cmt: chest pain Primary Visit Diagnosis:Follow up [Z09] Other Visit Diagnoses:Acute renal failure superimposed on stage 3 chronic kidney disease, unspecified acute renal failure type (HCC) [N17.9, N18.3] Chronic combined systolic and diastolic CHF (congestive heart failure) (HCC) [I50.42] Hemodialysis-associated hypotension [I95.3] Generalized abdominal pain [R10.84] Diarrhea of presumed infectious origin [R19.7] Leg weakness, bilateral [R29.898] Dizziness [R42] Order(s):C. DIFFICILE PCR [SQCDPCR] Order #: [id number] ENTERIC BACTERIAL PANEL BY PCR [SQSTLPCR] Order #: [id number] FUTURE FECAL OCCULT BLOOD TEST [SQIFOBT] Order #: [id number] FUTURE FECAL LACTOFERRIN/LEUKOCYTES [SQFECWBC] Order #: [id number] CBC + DIFF [SQCBCDIF] Order #: [id number] FUTURE STANDARD WHEELCHAIR [H2634TCK] Order #: [id number] bumetanide (BUMEX) 2 mg tabletTake 1.5 tablets by mouth twice daily. Hold on dialysis daysDisp: Rfl: simvastatin (ZOCOR) 20 mg tabletTake 1 tablet by mouth every morning.Disp: Rfl: Prescriptions as of 05/03/2018 Sig: BUMETANIDE 2 MG TABLET Take 1.5 tablets by mouth twi* SIMVASTATIN 20 MG TABLET Take 1 tablet by mouth every * SENNOSIDES 8.6 MG TABLET Take 8.6 mg by mouth once carlos* HYDROCODONE 5 MG-ACETAMINOPHE* Take 1 tablet by mouth every * TRAZODONE 50 MG TABLET Take 50 mg by mouth daily at * TRAMADOL 50 MG TABLET Take 50 mg by mouth every 8 h* OMEPRAZOLE 20 MG CAPSULE,COY* Take 20 mg by mouth once janeth* ONDANSETRON HCL 4 MG TABLET Take 4 mg by mouth every 8 ho* IPRATROPIUM-ALBUTEROL 0.5 MG-* Inhale 3 mL as instructed leanne* BUDESONIDE 0.5 MG/2 ML SUSPEN* Use 2 mL via nebulizer once d* AMIODARONE 200 MG TABLET Take 1 tablet by mouth once d* CARVEDILOL 3.125 MG TABLET Take 1 tablet by mouth twice * INSULIN ASPART U-100 100 UNI* Inject 12 Units subcutaneousl* INSULIN GLARGINE (U-100) 100 * Inject 50 Units subcutaneousl* INSULIN GLARGINE (U-100) 100 * Inject 36 Units subcutaneousl* ISOSORBIDE MONONITRATE ER 60 * Take 1 tablet by mouth once d* APIXABAN 5 MG TABLET Take 5 mg by mouth twice janeth* NITROGLYCERIN 0.4 MG SUBLINGU* Dissolve 1 tablet under the t* OXYGEN (HOME THERAPY) Inhale 2.5 L/min as instructe* CEPHALEXIN 500 MG CAPSULE Take 500 mg by mouth twice da* GABAPENTIN 100 MG CAPSULE Take 1 capsule by mouth twice* MELATONIN 3 MG TABLET Take 1 tablet by mouth daily * TORSEMIDE 10 MG TABLET Take 5 tablets by mouth once * PANTOPRAZOLE 40 MG TABLET,DEL* Take 40 mg by mouth twice carlos* BACITRACIN ZINC 500 UNIT/GRAM* Apply 1 application to affect* Patient not taking: Reported on 03/17/2018 NYSTATIN 100,000 UNIT/GRAM TO* Apply 1 application to affect* Patient not taking: Reported on 03/17/2018 DEXTROMETHORPHAN-GUAIFENESIN * Take 5-10 mL by mouth every 6* Medication notes this encounter BUMETANIDE 2 MG TABLET >> Sohail Longoria Ma 05/03/2018 10:42 AM >> SOHAIL LONGORIA MA May 03, 2018 10:42 AM MWF do not take starting 05/04/18. Problem List As Of Date 05/03/2018 Noted Resolved HOCM (hypertrophic obstructive cardiomyopathy) * 01/23/2018 Priority: I More... SVT (supraventricular tachycardia) ([facility]) [I47.1] 01/21/2018 More... Carotid artery disease (HCC) [I77.9] 01/22/2018 CAD (coronary artery disease) [I25.10] Priority: E More... Hypertension [I10] Priority: L More... Hyperlipidemia [E78.5] Pneumonia [J18.9] 10/27/2017 More... COPD (chronic obstructive pulmonary disease) (H* Priority: F More... Sleep apnea [G47.30] Priority: I More... HH (hiatus hernia) [K44.9] 01/21/2018 GERD (gastroesophageal reflux disease) [K21.9] Priority: K More... More... Arthritis [M19.90] Numbness and tingling of right leg [R20.0, R20.* 01/21/2018 Depression [F32.9] Atrial fibrillation (HCC) [I48.91] INVALID FOR* Priority: C More... Uncontrolled type 2 diabetes mellitus with stag*INVALID FOR* Priority: H More... More... More... Heart failure, systolic, acute (HCC) [I50.21] INVALID FOR*01/21/2018 More... Obesity [E66.09] INVALID FOR* Priority: M More... Gout [M10.9] Pacemaker [Z95.0] Priority: D More... Chronic combined systolic and diastolic CHF (co*INVALID FOR* Priority: B More... Elevated troponin [R74.8] INVALID FOR*01/22/2018 Priority: G More... Pulmonary hypertension (HCC) [I27.20] INVALID FOR* Oral thrush [B37.0] INVALID FOR*01/21/2018 Hyponatremia [E87.1] INVALID FOR* Priority: J More... Hyperkalemia [E87.5] INVALID FOR*01/22/2018 Priority: J Chest pain in adult [R07.9] INVALID FOR*02/12/2018 Priority: A More... Acute renal failure superimposed on stage 3 chr*INVALID FOR* Priority: A More... Obesity, Class II, BMI 35-39.9 [E66.9] INVALID FOR* Prescriptions ordered this encounter Disp Refills Start End BUMETANIDE 2 MG TABLET 05/04/2018 Class: Med Update Route: ORAL Sig: Take 1.5 tablets by mouth twice daily. Hold on dialysis days SIMVASTATIN 20 MG TABLET 05/04/2018 Class: Med Update Route: ORAL Sig: Take 1 tablet by mouth every morning. Medications Discontinued During This Encounter bumetanide (BUMEX) 2 mg tablet 05/04/2018 Class: Historical Med Route: ORAL Sig: Take 2.5 mg by mouth twice daily. Disc: Reason for discontinue is not on file. simvastatin (ZOCOR) 40 mg tablet 04/25/2018 05/04/2018 Class: Med Update Route: ORAL Sig: Take 0.5 tablets by mouth every morning. Disc: Reason for discontinue is not on file. Encounter Status:Closed by ADRIEL PRINGLE on 05/04/18 [place] Observed: 05/03/2018 Status: COMPLETED Source: [place] 12:00 AM [facility] REPOSITORY Patient Outreach (FAMPWS) LUZ BACA ([id number]) 1940 F Date Time Provider Department 05/03/18 REMI KENNEDY) FAMPWS During your visit today, we recorded the following information about you: Remi Kennedy RN 05/04/2018 3:02 PM Signed PRIMARY CARE COORDINATION IN OFFICE VISIT WITH PCP Patient has been identified by name and date of . PCP Assessment/Plan: Reviewed PCP plan with patient using [employer] Pt will get stool specimens. PCC will work on wheelchair order PCC Plan of Care: Patient concerns: Having foul smelling diarrhea x 1 week Patient having LE weakness and has been trying to get a wheelchair for home PCC Interventions: TC nia Marcelo, Heading And Priming Operator at [facility], asked to fax OT and PT notes on patient because we are trying to get a wheelchair for patient, she will fax. Next Office Visit: Visit date not found Plan For Next Call: One week Remi Kennedy RN May 03, 2018 Remi Kennedy RN 05/04/2018 3:02 PM Signed PRIMARY CARE COORDINATION QUICK NOTE Provider Action/FYI Wheelchair script, face to face notes and PT/OT evals faxed to [facility] Patient identified by name and date . Received PT/OT evaluations from [facility] Allergies As of Date: 05/03/2018 Noted Allergy Reaction ASPIRIN 01/20/2018 14 - Other: See Comments Comments: Patient states that she bled out every orifice, sts not allowed to take it at all. Patient states she was bleeding out of nose and mouth after one dose. BACTRIM (SULFAMETHOXAZOLE-TRIMETH*05/17/2017 14 - Other: See Comments Comments: My throat swells up. LATEX 05/17/2017 2 - Rash 9 - Itching Comments: Itching and welts. No wheezing or shortness of breath. PENICILLINS 07/14/2004 2 - Rash 9 - Itching Comments: Tolerated ceftriaxone during 11/2017 admission and cefepime during 12/2017 admission TETRACYCLINE 09/29/2010 2 - Rash 8 - GI Upset Comments: Emesis and diarrhea. 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] Prescriptions as of 05/03/2018 Sig: X SIMVASTATIN 40 MG TABLET Take 0.5 tablets by mouth leanne* CEPHALEXIN 500 MG CAPSULE Take 500 mg by mouth twice da* SENNOSIDES 8.6 MG TABLET Take 8.6 mg by mouth once carlos* HYDROCODONE 5 MG-ACETAMINOPHE* Take 1 tablet by mouth every * TRAZODONE 50 MG TABLET Take 50 mg by mouth daily at * TRAMADOL 50 MG TABLET Take 50 mg by mouth every 8 h* OMEPRAZOLE 20 MG CAPSULE,COY* Take 20 mg by mouth once janeth* ONDANSETRON HCL 4 MG TABLET Take 4 mg by mouth every 8 ho* IPRATROPIUM-ALBUTEROL 0.5 MG-* Inhale 3 mL as instructed leanne* BUDESONIDE 0.5 MG/2 ML SUSPEN* Use 2 mL via nebulizer once d* X BUMETANIDE 2 MG TABLET Take 2.5 mg by mouth twice da* AMIODARONE 200 MG TABLET Take 1 tablet by mouth once d* CARVEDILOL 3.125 MG TABLET Take 1 tablet by mouth twice * GABAPENTIN 100 MG CAPSULE Take 1 capsule by mouth twice* MELATONIN 3 MG TABLET Take 1 tablet by mouth daily * TORSEMIDE 10 MG TABLET Take 5 tablets by mouth once * INSULIN ASPART U-100 100 UNI* Inject 12 Units subcutaneousl* INSULIN GLARGINE (U-100) 100 * Inject 50 Units subcutaneousl* INSULIN GLARGINE (U-100) 100 * Inject 36 Units subcutaneousl* PANTOPRAZOLE 40 MG TABLET,DEL* Take 40 mg by mouth twice carlos* BACITRACIN ZINC 500 UNIT/GRAM* Apply 1 application to affect* Patient not taking: Reported on 03/17/2018 NYSTATIN 100,000 UNIT/GRAM TO* Apply 1 application to affect* Patient not taking: Reported on 03/17/2018 ISOSORBIDE MONONITRATE ER 60 * Take 1 tablet by mouth once d* APIXABAN 5 MG TABLET Take 5 mg by mouth twice janeth* DEXTROMETHORPHAN-GUAIFENESIN * Take 5-10 mL by mouth every 6* NITROGLYCERIN 0.4 MG SUBLINGU* Dissolve 1 tablet under the t* OXYGEN (HOME THERAPY) Inhale 2.5 L/min as instructe* Problem List As Of Date 05/03/2018 Noted Resolved HOCM (hypertrophic obstructive cardiomyopathy) * 01/23/2018 Priority: I More... SVT (supraventricular tachycardia) (HCC) [I47.1] 01/21/2018 More... Carotid artery disease (HCC) [I77.9] 01/22/2018 CAD (coronary artery disease) [I25.10] Priority: E More... Hypertension [I10] Priority: L More... Hyperlipidemia [E78.5] Pneumonia [J18.9] 10/27/2017 More... COPD (chronic obstructive pulmonary disease) (H* Priority: F More... Sleep apnea [G47.30] Priority: I More... HH (hiatus hernia) [K44.9] 01/21/2018 GERD (gastroesophageal reflux disease) [K21.9] Priority: K More... More... Arthritis [M19.90] Numbness and tingling of right leg [R20.0, R20.* 01/21/2018 Depression [F32.9] Atrial fibrillation (HCC) [I48.91] INVALID FOR* Priority: C More... Uncontrolled type 2 diabetes mellitus with stag*INVALID FOR* Priority: H More... More... More... Heart failure, systolic, acute (HCC) [I50.21] INVALID FOR*01/21/2018 More... Obesity [E66.09] INVALID FOR* Priority: M More... Gout [M10.9] Pacemaker [Z95.0] Priority: D More... Chronic combined systolic and diastolic CHF (co*INVALID FOR* Priority: B More... Elevated troponin [R74.8] INVALID FOR*01/22/2018 Priority: G More... Pulmonary hypertension (HCC) [I27.20] INVALID FOR* Oral thrush [B37.0] INVALID FOR*01/21/2018 Hyponatremia [E87.1] INVALID FOR* Priority: J More... Hyperkalemia [E87.5] INVALID FOR*01/22/2018 Priority: J Chest pain in adult [R07.9] INVALID FOR*02/12/2018 Priority: A More... Acute renal failure superimposed on stage 3 chr*INVALID FOR* Priority: A More... Obesity, Class II, BMI 35-39.9 [E66.9] INVALID FOR* Encounter Status:Closed by REMI KENNEDY on 05/04/18 12 LEAD ELECTROCARDIOGRAM Observed: 04/28/2018 Status: F Source: [place] 2:16 PM [facility] REPOSITORY [facility] Cardiovascular Services [address] [place] [address] 12 Lead EKG 04/21/18 205 MR#: [id number] Acct: [id number] Name: LUZ BACA Rep #: [id number] : 1940 77 From: Ayde Butt MD Attending Dr: Moo Mackey MD Status: DIS JUAN DANIEL Ordering Dr: Jhon Mejia DO Date: 04/21/18 Location: [facility] Sex: F C Admitted: 04/21/18 Test Reason : CHEST PAIN Blood Pressure : / mmHG Vent. Rate : 066 BPM Atrial Rate : 068 BPM P-R Int : 000 ms QRS Dur : 202 ms QT Int : 570 ms P-R-T Axes : 000 -79 100 degrees QTc Int : 597 ms Ventricular-paced rhythm Abnormal ECG Confirmed by KEARA COLLIER, AYDE ([id number]), continuity editor JASON ALDANA ([id number]) on 04/28/2018 2:15:31 PM Referred By: PRETTY Confirmed By:AYDE BUTT MD 04/28/18 1415 Date Ayde Butt MD CC: Kimberly Mejia; Mook Kamara MD; Moo Mackey MD Signed 12 LEAD ELECTROCARDIOGRAM Observed: 04/28/2018 Status: F Source: [place] 2:15 PM [facility] REPOSITORY [facility] Cardiovascular Services [address] [place] [address] 12 Lead EKG 04/22/18 0532 MR#: [id number] Acct: [id number] Name: LUZ BACA Rep #: [id number] : 1940 77 From: Ayde Butt MD Attending Dr: Moo Mackey MD Status: DIS JUAN DANIEL Ordering Dr: Moo Mackey MD Date: 04/22/18 Location: [facility] Sex: F C Admitted: 04/21/18 Test Reason : AM EKG Blood Pressure : / mmHG Vent. Rate : 066 BPM Atrial Rate : 070 BPM P-R Int : 000 ms QRS Dur : 218 ms QT Int : 574 ms P-R-T Axes : 000 -77 104 degrees QTc Int : 601 ms Ventricular-paced rhythm Abnormal ECG Confirmed by AYDE BUTT MD ([id number]), continuity editor JASON ALDANA ([id number]) on 04/28/2018 2:15:09 PM Referred By: PRETTY Confirmed By:AYDE BUTT MD 04/28/18 1415 Date Ayde Butt MD CC: Mook Kamara MD; Moo Mackey MD Signed 12 LEAD ELECTROCARDIOGRAM Observed: 04/26/2018 Status: F Source: [place] 1:13 PM [facility] REPOSITORY [facility] Cardiovascular Services [address] [place] [id number] 12 Lead EKG 04/21/18 0551 MR#: [id number] Acct: [id number] Name: LUZ BACA Rep #: [id number] : 1940 77 From: Parker Cosby MD Attending Dr: Moo Mackey MD Status: DIS JUAN DANIEL Ordering Dr: Jhon Mejia DO Date: 04/21/18 Location: [facility] Sex: F C Admitted: 04/21/18 Test Reason : AM EKG Blood Pressure : / mmHG Vent. Rate : 064 BPM Atrial Rate : 073 BPM P-R Int : 000 ms QRS Dur : 216 ms QT Int : 576 ms P-R-T Axes : 000 -78 099 degrees QTc Int : 594 ms Ventricular-paced rhythm with occasional Premature ventricular complexes Abnormal ECG When compared with ECG of 06-DEC-2017 20:07, Premature ventricular complexes are now Present Confirmed by PARKER COSBY MD ([id number]), continuity editor JASON ALDANA ([id number]) on 04/26/2018 1:12:47 PM Referred By: DR MEJIA Confirmed By:PARKER COSBY MD 04/26/18 1312 Date Parker Cosby MD CC: Kimberly Mejia; Mook Kamara MD; Moo Mackey MD Signed DISCHARGE SUMMARY Observed: 04/22/2018 Status: F Source: [place] 3:24 PM [facility] REPOSITORY [facility] Medical Records Department [address] [place] [address] Discharge Summary 04/21/18 0948 MR#: [id number] Acct: [id number] Name: LUZ RUSH Rep #: [id number] : 1940 77 From: Moo Mackey MD PCP: Mook Kamara MD Status: ADM JUAN DANIEL Y Location: [place] [address] ADDENDUM by Moo Mackey MD on 04/22/18 at 1524 Code Visit Correction about the date of discharge patient was discharged today, on 04/22/2018. Please change the discharge date to 04/22/2018 at 11 AM 04/22/18 1524 <Electronically signed by Moo Mackey MD> Date Moo Mackey MD cc: Mook Kamara MD; Moo Mackey MD * Signed Discharge Date and Diagnosis - Problem List Patient Problems: Active and Suspected Problems HCAP (healthcare-associated pneumonia) (Suspected) Chronic anticoagulation (Acute) Thrombocytopenia (Acute) Substernal chest pain (Acute) Date of Admission: 04/21/18 Date of Discharge: 04/22/18 - Primary Discharge Diagnosis Active and Suspected Problems Atypical chest pain, from musculoskeletal chest pain mainly costochondritis. 2. 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) End stage renal disease (Chronic) Diabetic neuropathy (Chronic) Peripheral vascular disease (Chronic) Venous insufficiency of both lower extremities (Chronic) Congestive heart failure (Chronic) History of coronary artery bypass graft (Chronic) 2013 History of PTCA (Chronic) 6 stents per patient Hospital Course and Treatment Imaging Results: 04/21/18 07:05 Chest PA and Lateral [RAD] AM (NON MEDS) Summary of Care Provided: T [] The patient is a 77 year old F with a PMH of DM II, HTN, HLD, CAD, CABG, PVD, PM/AICD, systolic CHF, ESRD on HD, AF, chronic anticoagulation and chronic respiratory failure with hypoxemia was admitted from [facility] after she had midsternal chest pain while having dialysis on 04/20/2018. Exact duration of chest pain unclear but probably 30 minutes as per the patient she denies URI or lower respiratory tract symptoms including cough, fever, tachypnea although she had transient shortness of breath during chest pain. At home she is on 2 L of home oxygen. Chest x-ray reported as having a retrocardiac infiltrate but I do not appreciate on imaging. Pneumonia workup negative including urinary antigens. Sputum culture pending Prior to that, she was in [facility] for chest pain and CHF in February but she did not had any cardiac imaging testing including stress or cath. She had acute kidney injury on CKD stage III with creatinine about 1.5 in January 2018. She was on started on dialysis in February and since then she lost about 25 kg of fluid weight over last 2 months. From there she was discharged to [facility] from where she was recently discharged to home 1. Atypical chest pain, from musculoskeletal chest pain mainly costochondritis. Acute coronary syndrome ruled out. Patient has history of coronary artery disease status post CABG and PTCA: Patient was admitted in PCU problems are mildly elevated 0.467, 0.568 0.58; flat and indeterminant probably from other comorbidities including CHF, pulmonary hypertension and ESRD on hemodialysis. Discussed with her supervisor porcelain department, Dr. Fam. According to him, she had recent echo in December 2017 showed EF 50% with severe pulmonary hypertension. She had last Lexiscan nuclear stress test in July 2017 which reported as EF 50% with no evidence of ischemia but previous apical infarct cannot be excluded. After discussion with Dr. Fam, stress test was done today. Nuclear stress test is negative for reversible ischemia but evidence of previous apical infarct as well as basal inferior septal infarct. Patient has acute tenderness over left second second to fifth costal cartilages suggestive of costochondritis. Patient also has diffuse aches and pain, predominantly musculoskeletal pain over her shins of tibia, back and thighs probably related to bone mineral disease as the patient is on dialysis. Currently calcium is 8.9. Magnesium 1.8. 2. ESRD on hemodialysis: Discussed with food and beverage operations manager Dr. Swartz. Patient is on Zemplar during dialysis session. He further agreed to follow-up patient's vitamin D and bone mineral disease including osteoporosis and address it. Follow-up with food and beverage operations manager in 2 weeks. Pneumonia ruled out: I do not appreciate signs and symptoms of pneumonia. Urinary antigens for strep and Legionella are negative. Empirically, she had Levaquin and vancomycin [place] [facility] does not need antibiotic today. Sputum culture specimen mainly content saliva so more accurate assessment. Blood culture is negative so far. Respiratory panel is negative. Pneumonia ruled out. Retrocardiac infiltrate most probably from atelectasis. Urine culture shows contamination of mixed gram-positive and gram-negative organism. 3. Diabetes mellitus type 2: Continue home dose of Lantus. Accu-Cheks before meals and at bedtime cover with NovoLog sliding scale. Other multiple comorbidities include hypertension, dyslipidemia, chronic A. fib on Eliquis, COPD, PVD with chronic hypoxic respiratory failure, chronic systolic heart failure and severe pulmonary hypertension. DVT prophylaxis: On Eliquis Discharge medication reconciliation done. Follow-up instructions discussed with the patient and patient's daughter Octavia at the bedside. Follow-up with food and beverage operations manager regarding bone mineral disease, osteoporosis and dialysis sessions discussed with the patient. Discharge Activity: May Not Drive Call your doctor if you observe: Fever of 101 or Higher, Inability to urinate, Shortness of breath Home Medications: Medications to take at Discharge Apixaban [Eliquis] 5 mg PO BID 12/06/17 Budesonide/Formoterol 160/4.5 [Symbicort 160/4.5 Mcg Inhaler (SP)] 2 puff INHALATION BID 12/06/17 Insulin Glargine,Hum.rec.anlog [Toujeo Solostar] 12 unit SQ TIDCM 12/06/17 Isosorbide Mononitrate [Isosorbide Mononitrate ER] 60 mg PO DAILY 12/06/17 Nitroglycerin 0.4 mg SL Q5M PRN 12/06/17 Simvastatin 40 mg PO QHS 12/06/17 Amiodarone 200 mg PO DAILY 04/21/18 Bumetanide [Bumex] 0.5 mg PO BID 04/21/18 Bumetanide [Bumex] 2 mg PO BID 04/21/18 Carvedilol [Coreg (Beta Lenny)] 3.125 mg PO BID 04/21/18 Hydrocodone/Acetaminophen [Fairfield 5-325 Tablet] 1 tablet PO TID PRN 04/21/18 Insulin Aspart [Novolog Flexpen] 0 - 100 units SC TIDCM #0 04/21/18 Metoclopramide HCl [Reglan] 5 mg PO TID 04/21/18 Omeprazole 20 mg PO DAILY 04/21/18 Tramadol HCl [Ultram] 50 mg PO Q6H 04/21/18 Trazodone HCl 100 mg PO QHS 04/21/18 Insulin Glargine,Hum.rec.anlog [Lantus] 36 unit SQ QHS 04/22/18 Insulin Glargine,Hum.rec.anlog [Lantus] 50 unit SQ BREAKFAST 04/22/18 Primary Care Physician: Mook Kamara MD [Primary Care Provider] - Please follow up with your Primary Care Physician in: in 1- 2 weeks Please Follow Up With: Aren Cardona MD When: in 2-3 weeks for CHF, CAD Please Follow Up With: Ynes De La Torre MD When: ESRD on HD IN 2-4 WEEKS Medical Necessity - Tobacco Use Smoking Status: Former smoker - quit in 2001 Tobacco Use: Non-smoker Meaningful Use Info Meaningful Use Diagnoses (Choose all that apply): None applicable Code Visit OBSV E AND M: 22543 Observation care discharge 04/22/18 2452 <Electronically signed by Moo Mackey MD> Date Moo Mackey MD Cosigner Signature (if applicable): Date CC: Mook Kamara MD; Moo Mackey MD Signed BEDSIDE GLUCOSE Collected: 04/22/2018 Status: F Source: [place] 1:17 PM [facility] REPOSITORY TYPE CODE TESTS RESULT OUT OF REFERENCE UNITS RANGE LAB L501.080 70-110 mg/dL High BEDSIDE GLU 151 Result Comment: MANAGEMENT OF PATIENT CARE PER NURSING PROTOCOL Performed By: #### L501.080 #### [facility] Laboratory Point of Care [address] [place] [address] DISCHARGE INSTRUCTION Observed: 04/22/2018 Status: F Source: [place] 11:55 AM [facility] REPOSITORY [facility] Medical Records Department [address] [place] [address] Instructions for Home/Discharge Instructions 04/22/18 1000 MR#: [id number] Acct: [id number] Name: LUZ RUSH Rep #: [id number] : 1940 77 From: Moo Mackey MD PCP: Mook Kamara MD Status: ADM JUAN DANIEL - Discharge Diagnoses Current Active Problems: Current Active and Chronic Problems Hypertension (Chronic) Hyperlipidemia (Chronic) Type 2 diabetes mellitus (Chronic) COPD (chronic obstructive pulmonary disease) (Chronic) Chronic hypoxemic respiratory failure (Chronic) Chronic anticoagulation (Acute) Atrial fibrillation (Chronic) Coronary artery disease (Chronic) 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) End stage renal disease (Chronic) Diabetic neuropathy (Chronic) Peripheral vascular disease (Chronic) Venous insufficiency of both lower extremities (Chronic) Congestive heart failure (Chronic) Thrombocytopenia (Acute) Substernal chest pain (Acute) History of coronary artery bypass graft (Chronic) 2013 History of PTCA (Chronic) 6 stents per patient You will use the following diet at home:: Calorie/Carbohydrate Controlled (specify 1200, 1400, etc) - 1800 ADA diet, Cardiac Discharge Activity: May Not Drive Call your doctor if you observe: Fever of 101 or Higher, Inability to urinate, Shortness of breath Allergies/Adverse Reactions: Allergies latex Allergy (Verified 04/21/18 03:41) Anaphylaxis meperidine [From Demerol] Allergy (Verified 04/21/18 03:40) Hives Penicillins Allergy (Verified 12/06/17 20:05) Hives Tetracyclines Allergy (Verified 12/06/17 20:05) Hives aspirin Adverse Reaction (Verified 04/21/18 04:35) Unknown atorvastatin Adverse Reaction (Verified 04/21/18 04:35) Unknown codeine Adverse Reaction (Verified 04/21/18 04:35) Unknown hydromorphone [From Dilaudid] Adverse Reaction (Verified 04/21/18 04:35) Unknown pentazocine Adverse Reaction (Verified 04/21/18 04:35) Unknown pioglitazone Adverse Reaction (Verified 04/21/18 04:35) Unknown propoxyphene Adverse Reaction (Verified 04/21/18 04:35) Unknown sulfamethoxazole [From Bactrim] Adverse Reaction (Verified 04/21/18 04:35) Unknown trimethoprim [From Bactrim] Adverse Reaction (Verified 04/21/18 04:35) Unknown Medications to take at Discharge Apixaban [Eliquis] 5 mg PO BID 12/06/17 Budesonide/Formoterol 160/4.5 [Symbicort 160/4.5 Mcg Inhaler (SP)] 2 puff INHALATION BID 12/06/17 Insulin Glargine,Hum.rec.anlog [Daljit Lyle] 12 unit SQ TIDCM 12/06/17 Isosorbide Mononitrate [Isosorbide Mononitrate ER] 60 mg PO DAILY 12/06/17 Nitroglycerin 0.4 mg SL Q5M PRN 12/06/17 Simvastatin 40 mg PO QHS 12/06/17 Amiodarone 200 mg PO DAILY 04/21/18 Bumetanide [Bumex] 0.5 mg PO BID 04/21/18 Bumetanide [Bumex] 2 mg PO BID 04/21/18 Carvedilol [Coreg (Beta Lenny)] 3.125 mg PO BID 04/21/18 Hydrocodone/Acetaminophen [[place]field 5-325 Tablet] 1 tablet PO TID PRN 04/21/18 Insulin Aspart [Novolog Flexpen] 0 - 100 units SC TIDCM #0 04/21/18 Metoclopramide HCl [Reglan] 5 mg PO TID 04/21/18 Omeprazole 20 mg PO DAILY 04/21/18 Tramadol HCl [Ultram] 50 mg PO Q6H 04/21/18 Trazodone HCl 100 mg PO QHS 04/21/18 Insulin Glargine,Hum.rec.anlog [Lantus] 36 unit SQ QHS 04/22/18 Insulin Glargine,Hum.rec.anlog [Lantus] 50 unit SQ BREAKFAST 04/22/18 Primary Care Physician: Mook Kamara MD [Primary Care Provider] - Please follow up with your Primary Care Physician in: in 1- 2 weeks Test Results: Test results from this visit will be discussed in further detail at your follow-up appointment, if applicable. Please Follow Up With: Aren Cardona MD When: in 2-3 weeks for CHF, CAD Please Follow Up With: Ynes De La Torre MD When: ESRD on HD IN 2-4 WEEKS 04/22/18 1155 <Electronically signed by Moo Mackey MD> Date Moo Mackey MD CC: Mook Kamara MD; Vamsi Swartz M.D. CONSULTATION Observed: 04/22/2018 Status: F Source: [place] 10:29 AM [facility] REPOSITORY [facility] Medical Records Department [address] [place] [address] Consultation 04/22/18 1018 MR#: [id number] Acct: [id number] Name: LUZ RUSH Rep #: [id number] : 1940 77 From: Spencer Swartz MD PCP: Mook Kamara MD Status: ADM JUAN DANIEL Y Location: [place] [address] Problem List (1) End stage renal disease Status: Chronic Consultation - Renal 04/22/18 PCP/ Referring MD: Requesting physician: Dr Mackey Primary care physician: Mook Kamara, Reason for Consultation:: ESRD - History of Present Illness History of Present Illness: The patient is a 77 year old F well known to us. she has known history of CKD stage 3 with baseline creatinine around 1.5 as of January 2018. In february she was admitted at [facility] with CHF, diuresis was attempted but she had dense renal failure and ended up on dialysis. Since starting dialysis, she has lost about 25 kg of fluid weight over the last 2 months. Has some urine output but creatinine was in 4s as of last month she presented to hospital with chest pain, worse with local palpation and movements. breathing is ok - Allergies Allergies: Allergies latex Allergy (Verified 04/21/18 03:41) Anaphylaxis meperidine [From Demerol] Allergy (Verified 04/21/18 03:40) Hives Penicillins Allergy (Verified 12/06/17 20:05) Hives Tetracyclines Allergy (Verified 12/06/17 20:05) Hives aspirin Adverse Reaction (Verified 04/21/18 04:35) Unknown atorvastatin Adverse Reaction (Verified 04/21/18 04:35) Unknown codeine Adverse Reaction (Verified 04/21/18 04:35) Unknown hydromorphone [From Dilaudid] Adverse Reaction (Verified 04/21/18 04:35) Unknown pentazocine Adverse Reaction (Verified 04/21/18 04:35) Unknown pioglitazone Adverse Reaction (Verified 04/21/18 04:35) Unknown propoxyphene Adverse Reaction (Verified 04/21/18 04:35) Unknown sulfamethoxazole [From Bactrim] Adverse Reaction (Verified 04/21/18 04:35) Unknown trimethoprim [From Bactrim] Adverse Reaction (Verified 04/21/18 04:35) Unknown - Current Medications Current Medications: Current Medications Acetaminophen (Tylenol) 650 mg PO Q4H PRN PRN PRN Reason: FEVER Last Admin: 04/21/18 22:27 Dose: 650 mg Hydrocodone Bitart/Acetaminophen (Fairfield 5mg-325mg) 1 tablet PO TID PRN PRN Reason: PAIN Last Admin: 04/21/18 21:20 Dose: 1 tablet Albuterol Sulfate (Ventolin Aerosols) 2.5 mg INHALATION Q2H PRN PRN PRN Reason: SHORTNESS OF BREATH Albuterol/Ipratropium (Duoneb) 3 ml INHALATION Q6H.RT [facility] Last Admin: 04/22/18 07:02 Dose: Not Given Amiodarone HCl (Cordarone) 200 mg PO DAILY [facility] Last Admin: 04/21/18 09:44 Dose: 200 mg Apixaban (Eliquis) 5 mg PO BID [facility] Last Admin: 04/21/18 22:27 Dose: 5 mg Bumetanide (Bumex) 0.5 mg PO BID [facility] Last Admin: 04/21/18 23:39 Dose: 0.5 mg Bumetanide (Bumex) 2 mg PO BID [facility] Last Admin: 04/21/18 23:38 Dose: 2 mg Carvedilol (Coreg) 3.125 mg PO BID [facility] Last Admin: 04/21/18 23:39 Dose: 3.125 mg Guaifenesin (Mucinex) 1,200 mg PO BID [facility] Last Admin: 04/21/18 22:27 Dose: 1,200 mg Ciprofloxacin (Cipro) 400 mg in 200 mls @ 200 mls/hr IV Q24 [facility] Last Admin: 04/21/18 06:53 Dose: 200 mls/hr Insulin Human Lispro (Humalog Kwikpen (Bkc)) 0 unit SC ACHS [facility] PRN Reason: Protocol Last Admin: 04/21/18 22:34 Dose: 2 u Isosorbide Mononitrate (Imdur) 60 mg PO DAILY [facility] Last Admin: 04/21/18 09:44 Dose: 60 mg Magnesium Hydroxide (Milk Of Magnesia) 30 ml PO DAILY PRN PRN Reason: Constipation Metoclopramide HCl (Metoclopramide Hcl) 5 mg PO TID [facility] Last Admin: 04/22/18 05:29 Dose: 5 mg Nitroglycerin (Nitrostat) 0.4 mg SUBLINGUAL Q5M PRN PRN Reason: CARDIAC/CHEST PAIN Last Admin: 04/21/18 21:01 Dose: 0.4 mg Ondansetron HCl (Zofran) 4 mg IV Q8H PRN PRN PRN Reason: NAUSEA Simvastatin (Zocor) 40 mg PO QHS [facility] Last Admin: 04/21/18 22:28 Dose: 40 mg Sodium Chloride () 5 - 15 ml IV UD PRN PRN Reason: SALINE FLUSH Sodium Chloride () 5 - 30 ml IV UD PRN PRN Reason: SALINE FLUSH Trazodone HCl (Desyrel) 100 mg PO QHS [facility] Last Admin: 04/21/18 22:27 Dose: 100 mg - Past Medical History Past Medical History (Chronic Problems): Chronic Problems Hypertension (Chronic) Hyperlipidemia (Chronic) Type 2 diabetes mellitus (Chronic) COPD (chronic obstructive pulmonary disease) (Chronic) Chronic hypoxemic respiratory failure (Chronic) Atrial fibrillation (Chronic) Coronary artery disease (Chronic) 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) End stage renal disease (Chronic) Diabetic neuropathy (Chronic) Peripheral vascular disease (Chronic) Venous insufficiency of both lower extremities (Chronic) Congestive heart failure (Chronic) History of coronary artery bypass graft (Chronic) 2013 History of PTCA (Chronic) 6 stents per patient - Past Surgical History Surgical History: angioplasty - has had a total of 6 stents, cholecystectomy, coronary bypass surgery - 2013, hysterectomy - for DUB, pacemaker implantation - AICD/PM, - - Social History Smoking Status: Former smoker - quit in 2001 Alcohol: Rare Drugs: None - Family History Maternal History Items: No pertinent history Paternal History Items: No pertinent history Review of Systems Constitutional: Denies: Chills, Fever, Weight Change HEENT: Denies: Head Aches, Sinus Congestion, Sinus Drainage Cardiovascular: Denies: Chest Pain, Palpitations Respiratory: Denies: Cough, Shortness of breath at rest, Sputum production Gastrointestinal: Denies: Abdominal Pain, Nausea, Vomiting Genitourinary: Denies: Dysuria Musculoskeletal: Denies: Joint Pain, Joint Tenderness Skin: Denies: Rash, Wounds Neurological: Denies: Numbness, Tingling, Focal weakness Psychiatric: Denies: Anxiety, Depression, Homicidal Ideations, Suicidal Ideations Hematologic/ Lymphatic: Denies: Easy Bruising, Easy Bleeding Patient Problems: Active and Suspected Problems HCAP (healthcare-associated pneumonia) (Suspected) Chronic anticoagulation (Acute) Thrombocytopenia (Acute) Substernal chest pain (Acute) - Physical Exam General: Alert, Oriented x3, Cooperative HEENT: Atraumatic, PERRLA, EOMI, Normocephalic Neck: Supple, No JVD, Negative Carotid Bruits Lungs: Clear to auscultation, Normal air movement Cardiovascular: Regular rate, No murmurs Abdomen: Bowel Sounds Present, Soft, Non Tender Extremities: No edema, Capillary Refill Less than 3 Seconds Skin: No rashes, No breakdown Musculoskeletal: No Tenderness to Palpation of Joints or Extremities Neurological: Cranial nerves II-XII grossly intact Psych/Mental Status: Normal Affect, Appropriate Vital Signs Temp Pulse Resp BP Pulse Ox 97.8 F 64 18 151/73 H 99 04/22/18 09:10 04/22/18 09:10 04/22/18 09:22 04/22/18 09:10 04/22/18 05:22 Oxygen Flow Rate (L/min) 2 Oxygen Delivery Method Nasal Cannula Weight: 92 kg Body Mass Index (BMI) 30.8 Intake and Output for Last 24 Hours Intake Total 840 / 840 240 / 240 Output Total 250 / 250 300 / 300 Balance 590 / 590 -60 / -60 Microbiology Past 72 Hours 04/21/18 07:40 Gram Stain - Final Laboratory Tests Past 24 Hrs WBC 5.7 POC Glucose POC Glucose 193 H 248 H 224 H POC Glucose 180 H Assessment/Plan All Active Problems Chronic anticoagulation (Acute) Thrombocytopenia (Acute) Substernal chest pain (Acute) Chest pain. troponins are slightly elevated. reviewed stress test results. she has old ischemia but no reversible ischemia. Dr Lepe is her supervisor porcelain department. ROMÁN, HD dependent. has been dialysis dependent for 2.5 months now. Baseline creatinine prior to ROMÁN was around 1.5. Last month, creatinine is around 4. now around 2.1 and 2.8. Possible partial recovery. will watch numbers for now h/o CHF. overall lost about 25 -30 kg since starting dialysis, mostly water weight. currently looks euvolemic seen on dialysis today no complaints now see orders/flowsheets 04/22/18 1029 <Electronically signed by Spencer Swartz MD> Date Spencer Swartz MD Cosigner Signature (if applicable): Date CC: Mook Kamara MD; Vamsi Swartz M.D. Signed STRESS REPORT Observed: 04/22/2018 Status: F Source: [place] 9:05 AM [facility] REPOSITORY [facility] Cardiovascular Services [address] [place] [address] MR#: [id number] Acct: [id number] Name: LUZ RUSH Rep #: [id number] : 1940 77 From: Parker Cosby MD Primary Care: Mook Kamara MD Status: ADM JUAN DANIEL Ordering Dr: Sex: F C Stress Test Report Pharmacologic myocardial perfusion stress test. 77-year-old lady with a history of cardiomyopathy coronary artery disease status post ICD implantation who presents with chest pain and abnormal cardiac enzymes. Medications amiodarone Eliquis Bumex Coreg isosorbide. Stress protocol: Resting EKG demonstrates atrial fibrillation with a ventricular paced rhythm at 62 bpm. Resting blood pressure is 142/70 mmHg. 0.4 mg of regadenoson was infused per usual protocol followed by Intravenous saline flush injection continuous EKG monitoring was performed to the patient maintained sinus rhythm throughout the recording with occasional premature ventricular complexes. The maximum heart rate attained was 98 bpm which was 68% of maximum predicted heart rate. The maximum workload was 1 metabolic equivalent. At rest there were no ST or T-wave changes noted suggest abnormal flow reserve left ventricular pacing activity was noted. Myocardial perfusion protocol. 14.5 mCi of technetium 99m sestamibi was injected at rest. 0.4 mg of regadenoson was infused per usual protocol. At peak infusion 44.8 mCi of technetium 99m sestamibi was injected stress images were obtained stress and rest images were reconstructed and compared in the short axis vertical long and horizontal long axis. Gated images were also obtained. Perfusion SPECT analysis: Review of the stress images demonstrate normal uptake of tracer noted in the basal and mid anterior wall there is a small defect noted at the apex, and a medium-sized defect noted in the basal inferoseptal wall. The resting images demonstrate a similar patent with no obvious ischemia noted. The above is suggestive of a previous apical infarct as well as basal inferior septal infarct. Mild farrah-infarct ischemia cannot be completely excluded. Gated SPECT analysis: The gated ejection fraction is 49% with apical dyskinesis present. Conclusion: Pharmacologic myocardial perfusion stress test with no obvious ischemia noted. Apical infarct present. Basal inferior septal infarct present. Ischemic cardiomyopathy present. 04/22/18904 <Electronically signed by Parker Cosby MD> Date Parker Cosby MD CC: Mook Kamara MD; Moo Mackey MD Date Dictated: 04/22/18900 Date Transcribed: 04/22/18900 Service Delivery Supervisor: [place] Signed BEDSIDE GLUCOSE Collected: 04/22/2018 Status: F Source: [place] 6:15 AM [facility] REPOSITORY TYPE CODE TESTS RESULT OUT OF REFERENCE UNITS RANGE LAB L501.080 70-110 mg/dL High BEDSIDE GLU 193 Result Comment: MANAGEMENT OF PATIENT CARE PER NURSING PROTOCOL Performed By: #### L501.080 #### [facility] Laboratory Point of Care [address] [place], [place] [address] CBC W/DIFF, AUTOMATED Collected: 04/22/2018 Status: F Source: [place] 5:20 AM [facility] REPOSITORY TYPE CODE TESTS RESULT OUT OF RANGE REFERENCE UNITS LAB L100.1000 4.4-11.0 K/mm3 Normal WBC 5.7 LAB L100.1200 4.2-5.4 M/mm3 Low RBC 4.05 LAB L100.1300 12.0-15.0 g/dl Normal HGB 12.3 LAB L100.1400 37-47 % Normal HCT 39.1 LAB L100.1500 81-99 fL Normal MCV 96.5 LAB L100.1600 27.0-32.0 pg Normal MCH 30.4 LAB L100.1700 32-36 g/gl Low MCHC 31.5 LAB L100.1810 11.6-14.6 % High RDW CV 15.6 LAB L100.1820 35.1-43.9 fl High RDW SD 54.4 LAB L100.1900 150-450 K/mm3 Low PLT 121 LAB L100.2000 6.2-12.0 fl Normal MPV 9.9 LAB L100.2100 47-70 % Normal NEUT% 64.5 LAB L100.2200 19-41 % Low LY% 17.2 LAB L100.2300 0-10 % High MONO% 11.6 LAB L100.2400 0-5 % High EO% 5.6 LAB L100.2500 0-1 % Normal BASO% 0.9 LAB L100.2550 0.0-0.9 % Normal IM GRAN % 0.200 Result Comment: IG% - Immature Granulocytes (promyelocytes, myelocytes and metamyelocytes) > 1% indicates that a LEFT SHIFT is Present. LAB L100.2620 2.0-7.7 X10 3/uL Normal Absolute Neut 3.7 LAB L100.2720 0.83-4.51 X10 3/ul Normal Absolute Lymph 0.98 Performed By: #### L100.0100 #### [facility] [address] [place], [address] PROTHROMBIN TIME W/INR Collected: 04/22/2018 Status: F Source: [place] 5:20 AM [facility] REPOSITORY TYPE CODE TESTS RESULT OUT OF RANGE REFERENCE UNITS LAB L300.4150 11.7-14.9 SECONDS High PROTIME 20.7 LAB L300.4200 Normal INR 1.8 Performed By: #### L300.3900, L300.4310 #### [facility] [address] [place], [place], [address] PARTIAL THROMBOPLAST Collected: 04/22/2018 Status: F Source: [place] TIME 5:20 AM [facility] REPOSITORY TYPE CODE TESTS RESULT OUT OF RANGE REFERENCE UNITS LAB L300.4310 24.1-36.2 Seconds Normal PTT 34.9 Performed By: #### L300.3900, L300.4310 #### [facility] [address] [place], [address] BASIC METABOLIC Collected: 04/22/2018 Status: F Source: [place] PROFILE (BMP) 5:20 AM [facility] REPOSITORY TYPE CODE TESTS RESULT OUT OF RANGE REFERENCE UNITS LAB L501.0100 74-106 mg/dL High GLU 190 Result Comment: Fasting Glucose result greater than or equal to 126 mg/dL suggests DIABETES MELLITUS per A.D.A. criteria. Please note revised GLUCOSE reference range effective 2017. LAB L501.1000 7-18 mg/dL High BUN 24 LAB L501.1100 0.55-1.02 mg/dL High CREAT,SERUM 2.88 Result Comment: The validity of the calculated GFR AND GFRAA in patients over 70 years has not been determined. Clinical correlation is essential. LAB L501.1110 >60 mL/min Low EST GFR 17 Result Comment: Non- GFR Calc LAB L501.1115 >60 mL/min Low EST GFR - AA 20 Result Comment: GFR Calc LAB L501.1255 ml/min Normal Estimated CRCL 16.76 LAB L501.1300 10-20 RATIO Low BUN/CRE 8.3 LAB L501.2200 8.5-10 mg/dL Normal .1 CA 8.9 LAB L501.5300 136-14 mmol/L Normal 5 NA 139 LAB L501.5600 3.5-5. mmol/L Normal 1 K 3.9 LAB L501.5900 98-107 mmol/L Low CL 96 LAB L501.6100 21.0-3 mmol/L High 2.0 CO2 35.0 LAB L501.6200 5-15 Normal GAP 8 Performed By: #### L500.2500, L501.5200 #### [facility] [address] [place], [address] MAGNESIUM Collected: 04/22/2018 Status: F Source: [place] 5:20 AM [facility] REPOSITORY TYPE CODE TESTS RESULT OUT OF RANGE REFERENCE UNITS LAB L501.5200 1.6-2.6 mg/dL Normal MG 1.8 Performed By: #### L500.2500, L501.5200 #### [facility] [address] [place], [address] BEDSIDE GLUCOSE Collected: 04/21/2018 Status: F Source: [place] 10:24 PM [facility] REPOSITORY TYPE CODE TESTS RESULT OUT OF REFERENCE UNITS RANGE LAB L501.080 70-110 mg/dL High BEDSIDE GLU 248 Result Comment: MANAGEMENT OF PATIENT CARE PER NURSING PROTOCOL Performed By: #### L501.080 #### [facility] Laboratory Point of Care [address] [place] [address] BEDSIDE GLUCOSE Collected: 04/21/2018 Status: F Source: [place] 4:13 PM [facility] REPOSITORY TYPE CODE TESTS RESULT OUT OF REFERENCE UNITS RANGE LAB L501.080 70-110 mg/dL High BEDSIDE GLU 224 Result Comment: MANAGEMENT OF PATIENT CARE PER NURSING PROTOCOL Performed By: #### L501.080 #### [facility] Point of Care [address] [place], [place] [address] Observed: 04/21/2018 Status: F Source: [place] RESPIRATORY PANEL 1:30 PM [facility] MOLECULAR REPOSITORY Order Date: 04/21/18 Has pt arrived? Y RP PANEL ADENOVIRUS Not Detected HUMAN METAPHNEUMO Not Detected INFLUENZA A Not Detected INFLUENZA A (SUBTYPE H1) Not Detected INFLUENZA A (SUBTYPE H3) Not Detected INFLUENZA B Not Detected PARAINFLUENZA 1 Not Detected PARAINFLUENZA 2 Not Detected PARAINFLUENZA 3 Not Detected PARAINFLUENZA 4 Not Detected RHINOVIRUS Not Detected RSV A Not Detected RSV B Not Detected NAAT METHOD Testing was performed using nucleic acid amplification Performed By: #### M100.638 #### [facility] [address] [place], [place], [address] BEDSIDE GLUCOSE Collected: 04/21/2018 Status: F Source: [place] 11:06 AM [facility] REPOSITORY TYPE CODE TESTS RESULT OUT OF REFERENCE UNITS RANGE LAB L501.080 70-110 mg/dL High BEDSIDE GLU 180 Result Comment: MANAGEMENT OF PATIENT CARE PER NURSING PROTOCOL Performed By: #### L501.080 #### [facility] Point of Care [address] [place], [place] [address] TROPONIN-I Collected: 04/21/2018 Status: F Source: [place] 9:15 AM [facility] REPOSITORY Order Comment: 'TROP' Serial specimen #1, #2 or #3: 3 TYPE CODE TESTS RESULT OUT OF RANGE REFERENCE UNITS LAB L501.4010 <0.045 ng/mL High 0.581 TROPONIN-I Result Comment: TROPONIN-I EXPECTED VALUES <0.045 Negative 0.045 - 0.590 Consistent with Cardiac Damage > OR = 0.600 Critical Value Not every elevated troponin is indicative of NE. These values should be used with clinical judgement in examining the patient's clinical picture for diagnosis. To establish a diagnosis of NE versus myocardial injury, there must be a demonstrated rise and/or fall in the troponin values, in addition to ischemic symptoms, EKG changes, new regional wall motion abnormality, and/or angiographical evidence. PLEASE NOTE: REFERENCE RANGES EDITED 18 Performed By: #### L501.4010 #### [facility] [address] [place], [address] Observed: 04/21/2018 Status: F Source: [place] CULTURE, SPUTUM 7:40 AM [facility] REPOSITORY Gram Stain Specimen is mostly saliva and as such may not represent an accurate assesment of the patients' pulmonary/respiratory condition. Acceptable Specimen? No (>25 Epithelial cells per/lpf) Gram Stain 3+ White Blood Cells 3+ Epithelial cells 4+ Gram positive cocci 4+ Gram negative rods Resp. Culture Test not performed Performed By: #### M100.0800 #### [facility] [address] [place], [address] BEDSIDE GLUCOSE Collected: 04/21/2018 Status: F Source: [place] 6:53 AM [facility] REPOSITORY TYPE CODE TESTS RESULT OUT OF REFERENCE UNITS RANGE LAB L501.080 70-110 mg/dL High BEDSIDE GLU 127 Result Comment: MANAGEMENT OF PATIENT CARE PER NURSING PROTOCOL Performed By: #### L501.080 #### [facility] Point of Care [address] [place] [address] TROPONIN-I Collected: 04/21/2018 Status: F Source: [place] 6:15 AM [facility] REPOSITORY Order Comment: 'TROP' Serial specimen #1, #2 or #3: 2 TYPE CODE TESTS RESULT OUT OF RANGE REFERENCE UNITS LAB L501.4010 <0.045 ng/mL High 0.568 TROPONIN-I Result Comment: Critical Result(s) Called to ALLYSON Gomez at: 07:05:00 04/21/2018 by: MARILUZ FLORES TROPONIN-I EXPECTED VALUES <0.045 Negative 0.045 - 0.590 Consistent with Cardiac Damage > OR = 0.600 Critical Value Not every elevated troponin is indicative of NE. These values should be used with clinical judgement in examining the patient's clinical picture for diagnosis. To establish a diagnosis of NE versus myocardial injury, there must be a demonstrated rise and/or fall in the troponin values, in addition to ischemic symptoms, EKG changes, new regional wall motion abnormality, and/or angiographical evidence. PLEASE NOTE: REFERENCE RANGES EDITED 18 Performed By: #### L501.4010 #### [facility] [address] [place], [place], [address] URINALYSIS, COMPLETE Collected: 04/21/2018 Status: F Source: [place] 5:28 AM [facility] REPOSITORY Order Comment: How was Urine Obtained? CARTOGRAPHIC AIDE TO SPECIFY TYPE CODE TESTS RESULT OUT OF REFERENCE UNITS RANGE LAB L400.3000 Yellow COLOR Normal Yellow LAB L400.3050 Clear CLARITY Normal Cloudy LAB L400.3200 Normal mg/dl GLUCOSE, UR Normal Normal LAB L400.3300 Negative mg/dL BILIRUBIN Normal URINE Negative LAB L400.3400 Negative mg/dl KETONE UR Normal Negative LAB L400.3465 1.002-1.030 SP.GR. Normal DIPSTX 1.015 LAB L400.3550 5.0 - 8.0 pH UR Normal 5.0 LAB L400.3600 Negative mg/dl PROT DIPSTX High 30 LAB L400.3700 Normal mg/dl UROBILI Normal Normal LAB L400.3750 Negative NITRITE UR Normal Negative LAB L400.3780 Negative /ul OCCULT High BLOOD-UR 25 LAB L400.3800 Negative /ul LEUK High ESTERASE 500 LAB L400.4050 0-5 /hpf WBC Normal >100 SEEN LAB L400.4100 0-5 /hpf RBC-UA Normal 0-5 SEEN LAB L400.4150 5-10 /hpf SQUAM EPI Normal 25-50 SEEN LAB L400.4300 None Seen /hpf BACTERIA Normal 1+ LAB L400.4350 <or=2+ /hpf MUCUS, Normal URINE 0 SEEN LAB L400.4200 0-5 /hpf Normal TRANSITIONAL EP 5-10 SEEN Performed By: #### L400.0001 #### [facility] [address] [place], [address] STREP Observed: 04/21/2018 Status: F Source: [place] PNEUMONIAE ANTIG(UR,CSF) 5:28 AM [facility] REPOSITORY S pneumo Ag URINE INTERPRETATION Negative Urine Presumptive negative for pneumococcal pneumonia, suggesting no current or recent pneumococcal infection. Infection due to S pneumoniae cannot be ruled out since the antigen present in the sample may be below the detection limit of the test. Strep pneumo Test Negative URINE (See interpretation below) Performed By: #### M300.4600 #### [facility] [address] [place], [address] Observed: 04/21/2018 Status: F Source: [place] LEGIONELLA ANTIGEN 5:28 AM [facility] URINE REPOSITORY Legionella, UR Legionella Antigen result interpretation: Negative Presumptive negative for Legionella pneumophila serogroup 1 antigen in urine, suggesting no recent or current infection. Legionella Ag, Urine Negative (See interpretation below) Performed By: #### M300.4500 #### [facility] [place], [address] Observed: 04/21/2018 Status: F Source: [place] CULTURE, URINE 5:28 AM [facility] REPOSITORY Urine Culture ORGANISM 1: Mixed Gram Pos AND Gram Neg Org [place] Count <1000 MIX CULTURE Mixed contaminants. Submit a new specimen if indicated. Performed By: #### M100.0650 #### [facility] [address] [place] [address], [address] HISTORY AND PHYSICAL Observed: 04/21/2018 Status: F Source: [place] EXAM 3:49 AM [facility] Medical Records Department [address] [place] [address] History and Physical 04/21/18 0246 MR#: [id number] Acct: [id number] Name: ANNEMARIE LUZ TRENT Rep #: [id number] : 1940 77 From: Jhon Mejia DO PCP: Mook Kamara MD Status: ADM JUAN DANIEL Y Location: [place] [address] Problem List (1) HCAP (healthcare-associated pneumonia) Status: Suspected (2) Hypertension Status: Chronic (3) Hyperlipidemia Status: Chronic (4) Type 2 diabetes mellitus Status: Chronic (5) COPD (chronic obstructive pulmonary disease) Status: Chronic (6) Chronic hypoxemic respiratory failure Status: Chronic (7) Chronic anticoagulation Status: Acute (8) Atrial fibrillation Status: Chronic (9) Coronary artery disease Status: Chronic Qualifiers: Coronary Disease-Associated Artery/Lesion type: rincon artery (10) Presence of combination internal cardiac defibrillator (ICD) and pacemaker Status: Chronic (11) End stage renal disease Status: Chronic (12) Diabetic neuropathy Status: Chronic (13) Peripheral vascular disease Status: Chronic (14) Venous insufficiency of both lower extremities Status: Chronic (15) Congestive heart failure Status: Chronic Qualifiers: Heart failure type: systolic (16) Thrombocytopenia Status: Acute (17) Substernal chest pain Status: Acute (18) History of coronary artery bypass graft Status: Chronic Comment: 2013 (19) History of PTCA Status: Chronic Comment: 6 stents per patient History of Present Illness Date of Admission: 04/21/18 Chief Complaint: CP and lightheadedness The patient is a 77 year old F with a PMH of DM II, HTN, HLD, CAD, CABG, PVD, PM/AICD, systolic CHF, ESRD on HD, AF, chronic anticoagulation and chronic respiratory failure with hypoxemia who presented to the [place] ED c/o substernal chest pain per the ED physician. She never mentioned CP to me and told me the reason she went to the ED was she got lightheaded at HD. She also did not mention a cough but when I asked she said she had a dry cough. She denies fevers, sweats, chills. she denied any change in SOB and she normally wears 2-2 1/2 LPM at home. She was afebrile at presentation to the ED. The CBC was unremarkable per the documentation except for plt's of 127,000. A CXR showed a retrocardiac infiltrate vs atelectasis. It was an AP film without a lateral. The initial troponin was 0.038 at [place]. No EKG was sent. Apparently she was recently at [facility] after a 9 day admission to [place]. the ER doc said for cellulitis but the patient said it was for her heart and the patient's dtr told me it was because her heart and lungs and kidneys were fighting. Neither the dtr or the patient know her meds and can not tell what reaction she has to the numerous allergies she has lasted. History was very difficult to obtain. the only time the patient coughed was when I had her take deep breaths. she is not tachypneic and has no conversational dyspnea or accessory muscle use. She does not appear to be toxic and in fact she does not appear to be in any distress at all. She is going to be admitted for observation for HCAP suspected by the [place] ED doc. Past Medical History Past Medical History (Chronic Problems): Chronic Problems Hypertension (Chronic) Hyperlipidemia (Chronic) Type 2 diabetes mellitus (Chronic) COPD (chronic obstructive pulmonary disease) (Chronic) Chronic hypoxemic respiratory failure (Chronic) Atrial fibrillation (Chronic) Coronary artery disease (Chronic) 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) End stage renal disease (Chronic) Diabetic neuropathy (Chronic) Peripheral vascular disease (Chronic) Venous insufficiency of both lower extremities (Chronic) Congestive heart failure (Chronic) History of coronary artery bypass graft (Chronic) 2013 History of PTCA (Chronic) 6 stents per patient Allergies Penicillins Allergy (Verified 12/06/17 20:05) Hives Tetracyclines Allergy (Verified 12/06/17 20:05) Hives Home Medications: Ambulatory Orders Medication Instructions Recorded Albuterol Sulfate 5 mg IH Q6H PRN 12/06/17 Surgical History: angioplasty - has had a total of 6 stents, cholecystectomy, coronary bypass surgery - 2013, hysterectomy - for DUB, pacemaker implantation - AICD/PM, - Psychiatric History: No pertinent psych hx 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 Denies: Head Aches, Sore Throat Cardiovascular: Reports: Chest Pain, Edema, Light Headedness. Denies: Palpitations, Paroxysmal Noc. Dyspnea, Syncope Respiratory: Reports: Cough - dry...she did not seem to think this was out of the ordinary for her and she does have COPD Gastrointestinal: Denies: Abdominal Pain, Diarrhea, Nausea, Vomiting Genitourinary: Reports: Dysuria - for the past month Gynecological: Denies: Breast symptoms, Vaginal discharge Musculoskeletal: Denies: Joint Pain, Joint Tenderness Skin: Reports: - - she has a small scab on the LLE just proximal to the L ankle on the medial side.....no erythema or increased warmth. she has discoloration of both LE's due to chronic swelling/venous insufficiency. Denies: Jaundice, Rash Neurological: Reports: Difficulty swallowing. Denies: Slurred speech, Confusion, Focal weakness, Numbness, Tingling, Seizures Psychiatric: Denies: Anxiety, Depression, Homicidal Ideations, Suicidal Ideations Endocrine: Denies: Change in Body Habitus Hematologic/ Lymphatic: Denies: Hx of blood clot VTE Information - Inpt Only VTE Present on Admission: No VTE Mechan Device Prophylaxis: None - pt can not tolerate leg compression due to pain VTE Pharm Prophylaxis ordered?: No Reason prophylaxis not ordered:: Treatment Not Indicated - she is anticoagulated with eliquis Patient Problems: Active and Suspected Problems HCAP (healthcare-associated pneumonia) (Suspected) Chronic anticoagulation (Acute) Thrombocytopenia (Acute) Substernal chest pain (Acute) - Physical Exam General: Alert, Oriented x3, Cooperative, No apparent distress, Well developed, Well nourished HEENT: Atraumatic, PERRLA, EOMI Oral: Moist Mucosa Neck: Negative Carotid Bruits, No Nodes, Trachea Midline Lungs: No rhonchi, Rales, Wheezes, - - rare exp wheeze, no rales, not tachypneic, no accessory muscle use, no conversational dyspnea, symmetric chest rise.......dminished throughout but, most diminished in the right base Cardiovascular: Irregular Rate, No rub noted, No Gallop, - - distant heart sounds. no MM appreciated and no gallop or rub Abdomen: Bowel Sounds Present, Soft, Non Tender, Non-Distended Extremities: No clubbing, No cyanosis, No Calf Tenderness, Diminished Peripheral Pulses, Edema, - - small eschar Left LE just proximal to the ankle and on the medial side. No increased warmth and no purulent DC. the skin over the distal LE's is discolored from long standing vennous insufficiency and the skin has lost the elasticity...it is boggy and fibrotic......will be very prone to breakdown Skin: No rashes Musculoskeletal: Arthritic Changes Neurological: Cranial nerves II-XII grossly intact, Neuro grossly intact Psych/Mental Status: Normal Affect, Appropriate Assessment/Plan All Active Problems Chronic anticoagulation (Acute) Thrombocytopenia (Acute) Substernal chest pain (Acute) Impressions 1. ? HCAP - afebrile with a normal WBC count at [place] ED. minimal cough with no SOB and does not appear ill. Her complaint at presentation to the ER was substernal chest pain and lightheadedness. I do not think she has PNA. 2. chest pain in a pt with hx of CAD, CABG and PTCA's 3. DM II 4. HTN 5. HLD 6. AF 7. chronic anticoagulation 8. COPD 9. PVD 10. chronic respiratory failure with hypoxemia 11. chronic systolic CHF 12. Venous insufficiency - long standing 13. former smoker Admit for observation Obtain a PA and Lateral CXR in the AM She got 750 mg of Levaquin and 1 GM of Vancomycin at [place] so there is no need to start antibiotics tonight.....bharti since I am not sure she even has HCAP Obtain records from [place] and Dr. 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 Serial CE's EKG now IS Aerosols Continue the Apixaban obtain a medication reconciliation Blood cultures Urine for Legionella and streptococcal antigens Sputum culture Code Visit OBSV Isaak AND Jhon: [id number] Initial observation care L3 04/21/18 0349 <Electronically signed by Jhon Mejia DO> Date Jhon Mejia DO Cosign Signature: Date (if applicable) CC: Mook Morales MD; Jonna Martin MD; Kimberly Mejia; Mook Kamara MD; Aren Cardona MD Signed CBC W/DIFF, AUTOMATED Collected: 04/21/2018 Status: F Source: [place] 3:36 AM [facility] REPOSITORY TYPE CODE TESTS RESULT OUT OF RANGE REFERENCE UNITS LAB L100.1000 4.4-11.0 K/mm3 Normal WBC 6.3 LAB L100.1200 4.2-5.4 M/mm3 Normal RBC 4.20 LAB L100.1300 12.0-15.0 g/dl Normal HGB 12.6 LAB L100.1400 37-47 % Normal HCT 39.9 LAB L100.1500 81-99 fL Normal MCV 95.0 LAB L100.1600 27.0-32.0 pg Normal MCH 30.0 LAB L100.1700 32-36 g/gl Low MCHC 31.6 LAB L100.1810 11.6-14.6 % High RDW CV 15.8 LAB L100.1820 35.1-43.9 fl High RDW SD 55.5 LAB L100.1900 150-450 K/mm3 Low PLT 118 LAB L100.2000 6.2-12.0 fl Normal MPV 9.8 LAB L100.2100 47-70 % Normal NEUT% 61.3 LAB L100.2200 19-41 % Normal LY% 20.2 LAB L100.2300 0-10 % High MONO% 12.4 LAB L100.2400 0-5 % High EO% 5.6 LAB L100.2500 0-1 % Normal BASO% 0.3 LAB L100.2550 0.0-0.9 % Normal IM GRAN % 0.200 Result Comment: IG% - Immature Granulocytes (promyelocytes, myelocytes and metamyelocytes) > 1% indicates that a LEFT SHIFT is Present. LAB L100.2620 2.0-7.7 X10 3/uL Normal Absolute Neut 3.9 LAB L100.2720 0.83-4.51 X10 3/ul Normal Absolute Lymph 1.27 Performed By: #### L100.0100 #### [facility] [place], [address] BASIC METABOLIC Collected: 04/21/2018 Status: F Source: [place] PROFILE (BMP) 3:36 AM [facility] REPOSITORY TYPE CODE TESTS RESULT OUT OF RANGE REFERENCE UNITS LAB L501.0100 74-106 mg/dL High GLU 112 Result Comment: Fasting Glucose result from 100 to 125 mg/dL suggests IMPAIRED HOMEOSTASIS per A.D.A. criteria. Please note revised GLUCOSE reference range effective 2017. LAB L501.1000 7-18 mg/dL Normal BUN 15 LAB L501.1100 0.55-1.02 mg/dL High CREAT,SERUM 2.16 Result Comment: The validity of the calculated GFR AND GFRAA in patients over 70 years has not been determined. Clinical correlation is essential. LAB L501.1110 >60 mL/min Low EST GFR 24 Result Comment: Non- GFR Calc LAB L501.1115 >60 mL/min Low EST GFR - AA 29 Result Comment: GFR Calc LAB L501.1255 ml/min Normal Estimated CRCL 22.35 LAB L501.1300 10-20 RATIO Low BUN/CRE 6.9 LAB L501.2200 8.5-10 mg/dL Low .1 CA 8.4 LAB L501.5300 136-14 mmol/L Normal 5 NA 138 LAB L501.5600 3.5-5. mmol/L Low 1 K 3.2 LAB L501.5900 98-107 mmol/L Normal CL 98 LAB L501.6100 21.0-3 mmol/L Normal 2.0 CO2 31.0 LAB L501.6200 5-15 Normal GAP 9 Performed By: #### L500.2500, L501.5200 #### [facility] [address] [place], [place], [id number] MAGNESIUM Collected: 04/21/2018 Status: F Source: [place] 3:36 AM [facility] REPOSITORY TYPE CODE TESTS RESULT OUT OF RANGE REFERENCE UNITS LAB L501.5200 1.6-2.6 mg/dL Normal MG 1.7 Performed By: #### L500.2500, L501.5200 #### [facility] [address] [place], [address] PHOSPHORUS Collected: 04/21/2018 Status: F Source: [place] 3:36 AM [facility] REPOSITORY Order Comment: 'TROP' Serial specimen #1, #2 or #3: 1 TYPE CODE TESTS RESULT OUT OF RANGE REFERENCE UNITS LAB L501.2300 2.5-4.9 mg/dL Low PHOS 2.4 Performed By: #### L501.2300, L501.4010 #### [facility] [address] [place], [address] TROPONIN-I Collected: 04/21/2018 Status: F Source: [place] 3:36 AM [facility] REPOSITORY Order Comment: 'TROP' Serial specimen #1, #2 or #3: 1 TYPE CODE TESTS RESULT OUT OF RANGE REFERENCE UNITS LAB L501.4010 <0.045 ng/mL High 0.467 TROPONIN-I Result Comment: TROPONIN-I EXPECTED VALUES <0.045 Negative 0.045 - 0.590 Consistent with Cardiac Damage > OR = 0.600 Critical Value Not every elevated troponin is indicative of NE. These values should be used with clinical judgement in examining the patient's clinical picture for diagnosis. To establish a diagnosis of NE versus myocardial injury, there must be a demonstrated rise and/or fall in the troponin values, in addition to ischemic symptoms, EKG changes, new regional wall motion abnormality, and/or angiographical evidence. PLEASE NOTE: REFERENCE RANGES EDITED 18 Performed By: #### L501.2300, L501.4010 #### [facility] [address] [place], [address] Observed: 04/21/2018 Status: F Source: [place] CULTURE, BLOOD (WB) 3:36 AM [facility] REPOSITORY Has pt arrived? Y BC No growth in 5 days. Performed By: #### M200.1000 #### [facility] [address] [place], [address] CHEST PA AND LATERAL Observed: 04/21/2018 Status: F Source: [place] 2:58 AM [facility] REPOSITORY [facility] Imaging Services [address] [place] [address] Chest PA and Lateral MR#: [id number] Acct: [id number] Name: ANNEMARIE LUZ TRENT Rep #: [id number] : 1940 F 77 From: Dina Landon MD PCP: Mook Kamara MD Status: ADM JUAN DANIEL Study: Chest PA and Lateral Date of Exam: 04/21/18 Exam# [id number] Ordering Dr: Jhon Mejia DO STUDY: X-RAY CHEST REASON FOR EXAM: Female, 77 years old. Cough TECHNIQUE: PA and lateral chest COMPARISON: 12/06/2017 FINDINGS: Right internal jugular central venous catheter tip in distal SVC (dual-lumen catheter). Left pectoral single lead AICD device with tip terminating in the region of the right ventricle. Stable. Median sternotomy and CABG. Small layering left effusion, bibasilar atelectasis, mild perihilar interstitial prominence. No pneumothorax. No right-sided effusion. Mild cardiomegaly. Stents are present. Median sternotomy. Normal mediastinal silhouette, samuel and pleural margins. No acute osseous or upper abdominal process. RAD/Chest PA and Lateral IMPRESSION: Left effusion, small. Left lung base atelectasis. Mild perihilar interstitial prominence. In the setting of chronic cardiac disease these features may reflect mild CHF, or pneumonia. Electronically Signed: Dina Landon, at 11:15 EDT Tel , Service support , CC: Kimberly Mejia; Mook Kamara MD Service Delivery Supervisor: Signed CR CHEST PORTABLE Observed: 04/20/2018 Status: F Source: [place] 9:54 PM SYSTEM REPOSITORY Patient Name: LUZ BACA Diagnostic Radiology Exam Date/Time 04/20/2018 21:45:04 EDT Exam CR Chest Portable Ordering Physician MD OMEGA, GEOVANNY PEARCE Accession Number [id number] CPT4 Codes 22321 () Reason For Exam chest pain Report Reason for examination: Chest pain. Portable chest is obtained at 0944 hours. There is a dialysis type catheter on the right with the tips overlying the superior vena cava. There is a left-sided pacemaker with a single lead overlying the right ventricle. Median sternotomy wires are present. The trachea is midline. The mediastinal silhouette is unremarkable. The heart is enlarged. The pulmonary vasculature is normal. There is retrocardiac opacity suggesting atelectasis infiltrate and/or effusion. The right lung is clear. No pneumothorax is seen. Report Dictated on Final Dictating Physician: MD GARCIA LAUREN B Signed Date and Time: 04/20/2018 9:56 pm Signed by: MD GARCIA LAUREN B Transcribed Date and Time: 04/20/2018 9:57 HEMOGRAM W/ AUTODIFF Collected: 04/20/2018 Status: F Source: [place] 9:25 PM SYSTEM REPOSITORY TYPE CODE TESTS RESULT OUT OF REFERENCE UNITS RANGE LAB IWBC 3.6-10.7 10*3/uL WBC Normal 6.8 LAB RBC 3.80-5.20 10*6/uL RBC Normal 4.18 LAB HGB 11.7-16.0 g/dL Hemoglobin Normal 12.4 LAB HCT 35.0-47.0 % Hematocrit Normal 38.8 LAB MCV 79.0-98.0 fL MCV Normal 92.8 LAB MCH 26.0-34.0 pg MCH Normal 29.6 LAB MCHC 32.0-36.0 % Low MCHC 31.9 LAB RDW 11.5-14.5 % RDW High 18.0 LAB PLT 140-440 10*3/uL Low Platelet 127 LAB MPV 7.4-10.4 fL MPV Normal 7.7 LAB GRAN% 40.0-80.0 % Granulocytes Normal 65.1 LAB LYMP% 20.0-40.0 % Lymphocytes Normal 20.7 LAB MONO% 2.0-10.0 % Monocytes Normal 9.7 LAB EOS% 1.0-6.0 % Eosinophils Normal 3.6 LAB BAS% 0.0-2.0 % Basophils Normal 0.9 LAB ANC 1.8-7.0 10*3/uL Abs Normal Neutrophile Cnt 4.4 LAB ALC 1.0-4.3 10*3/uL Abs Lymph Cnt Normal 1.4 LAB AMC 0.0-0.8 10*3/uL Abs Monocyte Normal Cnt 0.7 LAB AEC 0.0-0.5 10*3/uL Abs Eosin Cnt Normal 0.2 LAB ABC 0.0-0.2 10*3/uL Abs Baso Cnt Normal 0.1 Performed By: #### SHERRY, BMP3, TROPN #### [facility] [employer] [facility] [address] [place] [address] BASIC METABOLIC PANEL Collected: 04/20/2018 Status: F Source: [place] 9:25 PM SYSTEM REPOSITORY TYPE CODE TESTS RESULT OUT OF RANGE REFERENCE UNITS LAB NA3 137-145 mmol/L Sodium Normal 139 LAB K3 3.5-5.1 mmol/L Low Potassium 3.2 LAB CL3 98-107 mmol/L Low Chloride 94 LAB CO23 22-30 mmol/L High Carbon Dioxide 35 LAB ANIN3 NA Anion Gap 10 LAB GLUC3 70-100 mg/dL High Glucose 181 LAB BUN3 7-20 mg/dL Urea Normal Nitrogen 15 LAB CRET3 0.52-1.25 mg/dL High Creatinine 1.96 LAB GF3BR >60 mL/min eGFR 30.0 LAB GF3WR >60 mL/min eGFR OTHER 24.8 Result Comment: Source- MDRD equation with creatinine calibration to IDMS(NKDEP) eGFR not recommended for drug dose adjustment LAB CA3 8.4-10.4 mg/dL Normal Calcium 8.5 Performed By: #### SHERRY, BMP3, TROPN #### [facility] [employer] [facility] [address] [place] [address] TROPONIN I Collected: 04/20/2018 Status: F Source: [place] 9:25 PM SYSTEM REPOSITORY TYPE CODE TESTS RESULT OUT OF REFERENCE UNITS RANGE LAB TROP4 0.000-0.034 ng/mL High Troponin I 0.038 Result Comment: 0.046 - 0.400 = Indeterminate > 0.400 = Consider Myocardial Injury Performed By: #### HEMPRITI, BMP3, TROPN #### [facility] [employer] [facility] [address] [place] [address] CNOV Observed: 03/17/2018 Status: COMPLETED Source: [place] 2:30 PM [facility] REPOSITORY Office Visit (PULMWS) KEVENLUZ Salvador ([id number]) 1940 F Date Time Provider Department 03/17/18 2:30 PM MANDY ADKINS During your visit today, we recorded the following information about you: Pulse Respiration Blood pressure Weight 78/minute 16/minute 102/62 105.2 kg Height 1.727 m Michael Brown [employer] 03/17/2018 1:42 PM Signed Intake information documented in the prior visit with Hoa Valera, CALENDER WIND UP HELPER today. Mandy Adkins PA-C 03/17/2018 3:57 PM Signed [facility], 03/17/18: INTERVAL HISTORY: The patient is here for follow up of dyspnea. Since the last Pulmonary Clinic visit, the patient was admitted to [facility] on 01/27/18 secondary to fluid retention. She was started on dialysis. Discharged home on 02/17/18. Patient returned to the ED on 02/18/18 secondary to missing scheduled HD and requiring SNF level of care. Patient currently at [facility] in [place]. Today, patient states she is breathing better since starting dialysis. However, she still feels short of breath most of the time. Dry morning cough. No hemoptysis. No fevers or chills. No wheezing. Supplemental oxygen 2.5 L continuously via NC. DME: [employer]. Not wearing CPAP. Does not have CPAP at home. ? ROS: General: Generally feels tired and worn out. Appetite good. Weight stable. Eyes, Ears, nose, throat: No post nasal drip, rhinorrhea, purulent nasal discharge, epistaxis. No hoarseness. Vision stable. Cardiac: No angina. Bilateral edema. Sleeps with head of bed elevated 45 degrees orthopnea. GI: No heartburn, dysphagia, diarrhea. Constipation. No nausea or vomiting. Uro/CARE ASSOCIATE: No dysuria, hesitancy, nocturia. Musculoskeletal: Chronic pain in legs and feet. Neuro: No headache, focal weakness,tremor. Skin: Lower extremity wraps in place. Otherwise negative. Allergies reviewed and updated, and medications reconciled today. Immunization History Administered Date(s) Administered Influenza Seasonal - High Dose - Age 65+ 10/27/2017 PMH: Reviewed with patient today. No changes. FAMH: Reviewed with patient today. No changes. SOCH: No changes. PHYSICAL EXAMINATION: BP 102/62 Pulse 78 Resp 16 Ht 5' 8 (1.73m) Wt 232 lb (105.2kg) SpO2 92% BMI 35.28 kg/(m2). O2: 2.5 L. Gen: No acute distress. Cooperative with examination. ENT: Sclerae clear. Nares clear. Oral hygeine/dentition fair . Pharynx clear. No halitosis. Resp: No stridor, accessory respiratory muscle use, supra- sternal or intercostal retractions. No crackles, wheezes, rubs. CV: Regular rythm. Heart tones normal. Radial pulses normal. Abd: Non distended. MSK: No kyphoscoliosis, joint deformities. Ext: Warm and well perfused. No clubbing, cyanosis. Bilateral lower extremity edema. No sclerodactyly. No Raynaud's. Skin: Bilateral wraps intact. Lymph: No adenopathy in neck, supra-clavicular fossae. Endo: No goiter, exophthalmos, onycholysis. Neuro: Mental status normal. Affect normal. Muscle tone normal. No tremor. DATA REVIEW: DATE: 03/17/18 11/12/17 07/16/04 FVC 1.07 (32 % pred) + 5 % post BD 1.15 (35 % pred) 2.37 (73 % pred) FEV1 0.79 (32 % pred) 0.93 (37 % pred) 1.87 (74 % pred) FEV1/FVC 0.74 0.80 0.102 TLC 3.07 (54 % pred) DLco 8.3 (38 % pred) 9.0 (42 % pred) CXR, 02/18/18 IMPRESSION: Lines, tubes, and devices: ?Stable right IJ catheter and left chest single chamber AICD. Lungs and pleura: ?The right lung and left upper lung appear clear. ? Limited evaluation of the left mid to lower lung zones. ?No large pleural effusion on the right side. ?The left lateral costophrenic angle is not visualized. ?Patient's chin overlying the upper chest. Cardiomediastinal silhouette: ?There is prominence of the cardiac silhouette however not fully characterized on this portable single view. Other: ?Status post median sternotomy and CABG. Labs, 02/08/18 NT Pro BNP 2941 (H) <450 pg/mL Final MED LAB IMPRESSION AND RECOMMENDATIONS: 1. Dyspnea secondary to multiple factors, including moderate to severe Pulmonary HTN, Chronic hypoxemic hypercarbic respiratory failure, MARLA noncompliant with PAP therapy, combined systolic and diastolic CHF. - Continue Bumex per cardiology. - Scheduled Duonebs every 4 hours while awake and prn for shortness of breath/wheezing. - Add Budesonide to Duonebs twice daily. This may all be administered at once. - Continue supplemental oxygen, targeting spO2 around 92%. - It is imperative that you wear your CPAP. See below for recommendations. 2. Hypoxemia. - Continue with continuous supplemental oxygen at this time. ? 3. Sleep apnea. - Previously unable to tolerate CPAP mask. - Untreated MARLA may lead to or worsen pulmonary arterial hypertension, CAD and cardiac arrhythmias, heart failure, and stroke. - Recommend PSG and referral to sleep medicine. Further recommendations to follow. 4. Chronic Kidney Disease. - Hemodialysis Wednesday, Wednesday, Wednesday per nephrology. ? I addressed the questions of the patient and daughter, and they expressed understanding and acceptance of my answers. Mandy Adkins PA-C [facility] [address] [address] Mandy Adkins PA-C 03/17/2018 3:07 PM Signed 1. Dyspnea secondary to multiple factors, including moderate to severe Pulmonary HTN, Chronic hypoxemic hypercarbic respiratory failure, MARLA noncompliant with PAP therapy, combined systolic and diastolic CHF. - Continue Bumex per cardiology. - Scheduled Duonebs every 4 hours while awake and prn for shortness of breath/wheezing. - Add Budesonide to Duonebs twice daily. This may all be administered at once. - Continue supplemental oxygen, targeting spO2 around 92%. - It is imperative that you wear your CPAP. See below for recommendations. 2. Hypoxemia. - Continue with continuous supplemental oxygen at this time. ? 3. Sleep apnea. - Previously unable to tolerate CPAP mask. - Untreated MARLA may lead to or worsen pulmonary arterial hypertension, CAD and cardiac arrhythmias, heart failure, and stroke. - Recommend PSG and referral to sleep medicine. Further recommendations to follow. 4. Chronic Kidney Disease. - Hemodialysis Wednesday, Wednesday, Wednesday per nephrology. Referring Provider: SEFERINO DEMARCO (GORGE) [[id number]] Allergies As of Date: 03/17/2018 Noted Allergy Reaction ASPIRIN 01/20/2018 14 - Other: See Comments Comments: Patient states that she bled out every orifice, sts not allowed to take it at all. Patient states she was bleeding out of nose and mouth after one dose. BACTRIM (SULFAMETHOXAZOLE-TRIMETH*05/17/2017 14 - Other: See Comments Comments: My throat swells up. LATEX 05/17/2017 2 - Rash 9 - Itching Comments: Itching and welts. No wheezing or shortness of breath. PENICILLINS 07/14/2004 2 - Rash 9 - Itching Comments: Tolerated ceftriaxone during 11/2017 admission and cefepime during 12/2017 admission TETRACYCLINE 09/29/2010 2 - Rash 8 - GI Upset Comments: Emesis and diarrhea. ATORVASTATIN 05/17/2017 2 - Rash CODEINE 05/17/2017 14 - Other: See Comments Comments: Numbness DILAUDID (HYDROMORPHONE (BULK)) 05/17/2017 1 - Mental Status Change MEPERIDINE 07/14/2004 PENTAZOCINE 07/14/2004 PIOGLITAZONE 05/17/2017 16 - Unknown PROPOXYPHENE 07/14/2004 Date Reviewed: 03/17/2018 Reviewed by: Mandy Adkins - Fully Assessed Reason for Visit: Established Patient [175] Cmt: hypoxia Primary Visit Diagnosis:Chronic obstructive pulmonary disease, unspecified COPD type (HCC) [J44.9] Other Visit Diagnoses:Pulmonary hypertension [I27.20] Chronic combined systolic and diastolic CHF (congestive heart failure) ([facility]) [I50.42] MARLA (obstructive sleep apnea) [G47.33] Dyspnea and respiratory abnormalities [R06.00, R06.89] Obesity, Class II, BMI 35-39.9 [E66.9] Order(s):ipratropium-albuterol (DUONEB) 0.5 mg-3 mg(2.5 mg base)/3 mL nebuInhale 3 mL as instructed every 4 hours while awake. And prn for wheezing/shortness of breath.Disp: 180 VialRfl: 5 budesonide (PULMICORT) 0.5 mg/2 mL nebulizer solutionUse 2 mL via nebulizer once daily. INHALE 2 ML BY NEBULIZER OVER 5-15 MINUTES EVERY 12 HOURS.Disp: 60 VialRfl: 5 POLYSOMNOGRAM (PSG)/HOME SLEEP APNEA TESTING (HSAT) [7292436] Order #: [id number] FUTURE CONSULT TO SLEEP MEDICINE - ADULT [6230228] Order #: [id number]: 1 Prescriptions as of 03/17/2018 Sig: CEPHALEXIN 500 MG CAPSULE Take 500 mg by mouth twice da* SENNOSIDES 8.6 MG TABLET Take 8.6 mg by mouth once carlos* HYDROCODONE 5 MG-ACETAMINOPHE* Take 1 tablet by mouth every * BUMETANIDE 2 MG TABLET Take 2.5 mg by mouth twice da* TRAZODONE 50 MG TABLET Take 50 mg by mouth daily at * TRAMADOL 50 MG TABLET Take 50 mg by mouth every 8 h* OMEPRAZOLE 20 MG CAPSULE,COY* Take 20 mg by mouth once janeth* ONDANSETRON HCL 4 MG TABLET Take 4 mg by mouth every 8 ho* AMIODARONE 200 MG TABLET Take 1 tablet by mouth once d* CARVEDILOL 3.125 MG TABLET Take 1 tablet by mouth twice * GABAPENTIN 100 MG CAPSULE Take 1 capsule by mouth twice* MELATONIN 3 MG TABLET Take 1 tablet by mouth daily * TORSEMIDE 10 MG TABLET Take 5 tablets by mouth once * INSULIN ASPART U-100 100 UNI* Inject 12 Units subcutaneousl* INSULIN GLARGINE (U-100) 100 * Inject 50 Units subcutaneousl* INSULIN GLARGINE (U-100) 100 * Inject 36 Units subcutaneousl* ISOSORBIDE MONONITRATE ER 60 * Take 1 tablet by mouth once d* APIXABAN 5 MG TABLET Take 5 mg by mouth twice janeth* SIMVASTATIN 40 MG TABLET Take 40 mg by mouth every mor* DEXTROMETHORPHAN-GUAIFENESIN * Take 5-10 mL by mouth every 6* NITROGLYCERIN 0.4 MG SUBLINGU* Dissolve 1 tablet under the t* OXYGEN (HOME THERAPY) Inhale 2.5 L/min as instructe* IPRATROPIUM-ALBUTEROL 0.5 MG-* Inhale 3 mL as instructed leanne* BUDESONIDE 0.5 MG/2 ML SUSPEN* Use 2 mL via nebulizer once d* PANTOPRAZOLE 40 MG TABLET,DEL* Take 40 mg by mouth twice carlos* BACITRACIN ZINC 500 UNIT/GRAM* Apply 1 application to affect* Patient not taking: Reported on 03/17/2018 NYSTATIN 100,000 UNIT/GRAM TO* Apply 1 application to affect* Patient not taking: Reported on 03/17/2018 Problem List As Of Date 03/17/2018 Noted Resolved HOCM (hypertrophic obstructive cardiomyopathy) * 01/23/2018 Priority: I More... SVT (supraventricular tachycardia) (HCC) [I47.1] 01/21/2018 More... Carotid artery disease (HCC) [I77.9] 01/22/2018 CAD (coronary artery disease) [I25.10] Priority: E More... Hypertension [I10] Priority: L More... Hyperlipidemia [E78.5] Pneumonia [J18.9] 10/27/2017 More... COPD (chronic obstructive pulmonary disease) (H* Priority: F More... Sleep apnea [G47.30] Priority: I More... HH (hiatus hernia) [K44.9] 01/21/2018 GERD (gastroesophageal reflux disease) [K21.9] Priority: K More... More... Arthritis [M19.90] Numbness and tingling of right leg [R20.0, R20.* 01/21/2018 Depression [F32.9] Atrial fibrillation (HCC) [I48.91] INVALID FOR* Priority: C More... Uncontrolled type 2 diabetes mellitus with stag*INVALID FOR* Priority: H More... More... More... Heart failure, systolic, acute (HCC) [I50.21] INVALID FOR*01/21/2018 More... Obesity [E66.09] INVALID FOR* Priority: M More... Gout [M10.9] Pacemaker [Z95.0] Priority: D More... Chronic combined systolic and diastolic CHF (co*INVALID FOR* Priority: B More... Elevated troponin [R74.8] INVALID FOR*01/22/2018 Priority: G More... Pulmonary hypertension [I27.20] INVALID FOR* Oral thrush [B37.0] INVALID FOR*01/21/2018 Hyponatremia [E87.1] INVALID FOR* Priority: J More... Hyperkalemia [E87.5] INVALID FOR*01/22/2018 Priority: J Chest pain in adult [R07.9] INVALID FOR*02/12/2018 Priority: A More... Acute renal failure superimposed on stage 3 chr*INVALID FOR* Priority: A More... Obesity, Class II, BMI 35-39.9 [E66.9] INVALID FOR* Other instructions from your clinician: 1. Dyspnea secondary to multiple factors, including moderate to severe Pulmonary HTN, Chronic hypoxemic hypercarbic respiratory failure, MARLA noncompliant with PAP therapy, combined systolic and diastolic CHF. - Continue Bumex per cardiology. - Scheduled Duonebs every 4 hours while awake and prn for shortness of breath/wheezing. - Add Budesonide to Duonebs twice daily. This may all be administered at once. - Continue supplemental oxygen, targeting spO2 around 92%. - It is imperative that you wear your CPAP. See below for recommendations. 2. Hypoxemia. - Continue with continuous supplemental oxygen at this time. ? 3. Sleep apnea. - Previously unable to tolerate CPAP mask. - Untreated MARLA may lead to or worsen pulmonary arterial hypertension, CAD and cardiac arrhythmias, heart failure, and stroke. - Recommend PSG and referral to sleep medicine. Further recommendations to follow. 4. Chronic Kidney Disease. - Hemodialysis Wednesday, Wednesday, Wednesday per nephrology. 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 Prescriptions ordered this encounter Disp Refills Start End IPRATROPIUM-ALBUTEROL 0.5 MG-3 MG(2.* 180 * 5 03/17/2018 Class: Print RX Route: INHALATION Sig: Inhale 3 mL as instructed every 4 hours while awake. And prn for wheezing/shortness of breath. BUDESONIDE 0.5 MG/2 ML SUSPENSION FO* 60 V* 5 03/17/2018 Class: Print RX Route: NEBULIZATION Sig: Use 2 mL via nebulizer once daily. INHALE 2 ML BY NEBULIZER OVER 5-15 MINUTES EVERY 12 HOURS. Medications Discontinued During This Encounter ipratropium-albuterol (DUONEB) 0.5 m* 180 * 3 12/20/2017 03/17/2018 Route: INHALATION Sig: Inhale 3 mL as instructed every 4 hours as needed. Disc: Reason for discontinue is not on file. Disposition: Return in about 3 months (around 06/17/2018). Follow-up and Disposition History Recorded Encounter Status:Closed by MANDY ADKINS on 03/17/18 PROGRESS Observed: 03/17/2018 Status: COMPLETED Source: [place] 2:06 PM [facility] REPOSITORY HNO ID: [id number] Author: Mandy Adkins Service: (none) Author Type: Physician Transport Driver Type: Progress Notes Filed: 03/17/2018 3:57 PM Note Text: [facility] [place], 03/17/18: INTERVAL HISTORY: The patient is here for follow up of dyspnea. Since the last Pulmonary Clinic visit, the patient was admitted to [facility] on 01/27/18 secondary to fluid retention. She was started on dialysis. Discharged home on 02/17/18. Patient returned to the ED on 02/18/18 secondary to missing scheduled HD and requiring SNF level of care. Patient currently at [facility]. Today, patient states she is breathing better since starting dialysis. However, she still feels short of breath most of the time. Dry morning cough. No hemoptysis. No fevers or chills. No wheezing. Supplemental oxygen 2.5 L continuously via NC. DME: [employer]. Not wearing CPAP. Does not have CPAP at home. ? ROS: General: Generally feels tired and worn out. Appetite good. Weight stable. Eyes, Ears, nose, throat: No post nasal drip, rhinorrhea, purulent nasal discharge, epistaxis. No hoarseness. Vision stable. Cardiac: No angina. Bilateral edema. Sleeps with head of bed elevated 45 degrees orthopnea. GI: No heartburn, dysphagia, diarrhea. Constipation. No nausea or vomiting. Uro/CARE ASSOCIATE: No dysuria, hesitancy, nocturia. Musculoskeletal: Chronic pain in legs and feet. Neuro: No headache, focal weakness,tremor. Skin: Lower extremity wraps in place. Otherwise negative. Allergies reviewed and updated, and medications reconciled today. Immunization History Administered Date(s) Administered Influenza Seasonal - High Dose - Age 65+ 10/27/2017 PMH: Reviewed with patient today. No changes. FAMH: Reviewed with patient today. No changes. SOCH: No changes. PHYSICAL EXAMINATION: BP 102/62 Pulse 78 Resp 16 Ht 5' 8 (1.73m) Wt 232 lb (105.2kg) SpO2 92% BMI 35.28 kg/(m2). O2: 2.5 L. Gen: No acute distress. Cooperative with examination. ENT: Sclerae clear. Nares clear. Oral hygeine/dentition fair . Pharynx clear. No halitosis. Resp: No stridor, accessory respiratory muscle use, supra- sternal or intercostal retractions. No crackles, wheezes, rubs. CV: Regular rythm. Heart tones normal. Radial pulses normal. Abd: Non distended. MSK: No kyphoscoliosis, joint deformities. Ext: Warm and well perfused. No clubbing, cyanosis. Bilateral lower extremity edema. No sclerodactyly. No Raynaud's. Skin: Bilateral wraps intact. Lymph: No adenopathy in neck, supra-clavicular fossae. Endo: No goiter, exophthalmos, onycholysis. Neuro: Mental status normal. Affect normal. Muscle tone normal. No tremor. DATA REVIEW: DATE: 03/17/18 11/12/17 07/16/04 FVC 1.07 (32 % pred) + 5 % post BD 1.15 (35 % pred) 2.37 (73 % pred) FEV1 0.79 (32 % pred) 0.93 (37 % pred) 1.87 (74 % pred) FEV1/FVC 0.74 0.80 0.102 TLC 3.07 (54 % pred) DLco 8.3 (38 % pred) 9.0 (42 % pred) CXR, 02/18/18 IMPRESSION: Lines, tubes, and devices: ?Stable right IJ catheter and left chest single chamber AICD. Lungs and pleura: ?The right lung and left upper lung appear clear. ? Limited evaluation of the left mid to lower lung zones. ?No large pleural effusion on the right side. ?The left lateral costophrenic angle is not visualized. ?Patient's chin overlying the upper chest. Cardiomediastinal silhouette: ?There is prominence of the cardiac silhouette however not fully characterized on this portable single view. Other: ?Status post median sternotomy and CABG. Labs, 02/08/18 NT Pro BNP 2941 (H) <450 pg/mL Final MED LAB IMPRESSION AND RECOMMENDATIONS: 1. Dyspnea secondary to multiple factors, including moderate to severe Pulmonary HTN, Chronic hypoxemic hypercarbic respiratory failure, MARLA noncompliant with PAP therapy, combined systolic and diastolic CHF. - Continue Bumex per cardiology. - Scheduled Duonebs every 4 hours while awake and prn for shortness of breath/wheezing. - Add Budesonide to Duonebs twice daily. This may all be administered at once. - Continue supplemental oxygen, targeting spO2 around 92%. - It is imperative that you wear your CPAP. See below for recommendations. 2. Hypoxemia. - Continue with continuous supplemental oxygen at this time. ? 3. Sleep apnea. - Previously unable to tolerate CPAP mask. - Untreated MARLA may lead to or worsen pulmonary arterial hypertension, CAD and cardiac arrhythmias, heart failure, and stroke. - Recommend PSG and referral to sleep medicine. Further recommendations to follow. 4. Chronic Kidney Disease. - Hemodialysis Wednesday, Wednesday, Wednesday per nephrology. ? I addressed the questions of the patient and daughter, and they expressed understanding and acceptance of my answers. Mandy Adkins PA-C [facility] [place] [facility] [address] [phone] PROGRESS Observed: 02/22/2018 Status: COMPLETED Source: [place] 3:26 PM [facility] REPOSITORY HNO ID: [id number] Author: Remi Kennedy (Rn) Service: (none) Author Type: Registered Nurse Type: Progress Notes Filed: 02/22/2018 3:44 PM Note Text: PRIMARY CARE COORDINATION FOLLOW-UP NOTE Provider Action/FYI FYI Patient identified by name and date of . YES Spoke to DWAYNE Ohara from [facility] and DWAYNE Castellano from [facility] Summary: TC ot Nona Larkin is unavailable, left message regarding dialysis is set up for [place]. It is to start at 11:00 tomorrow but since pt is new to the facility tomorrow she should arrive at 10:40. Verbalized understanding with teach back. TC to DWAYNE Ohara for [facility], asked if pt has had her dialysis transferred to [place]? States yes, dialysis is set up for [place]. Dialysis is to start at 11:00 tomorrow but since pt is new to the facility tomorrow she should arrive at 10:40 Concerns: TC [facility], left message asking if patient has been transferred to [facility] instead of [place]. They need to know where to transport pt tomorrow for dialysis. Watermelon Inspector plan for next outreach: Will follow up at discharge planning Signature Remi Kennedy RN February 22, 2018 LUDA Observed: 02/22/2018 Status: COMPLETED Source: [place] 12:00 AM [facility] REPOSITORY Patient Outreach (FAMPWS) LUZ BACA ([id number]) 1940 F Date Time Provider Department 02/22/18 [facility] (RN) [facility] During your visit today, we recorded the following information about you: Remi Kennedy (Rn) 02/22/2018 3:44 PM Signed PRIMARY CARE COORDINATION FOLLOW-UP NOTE Provider Action/FYI FYI Patient identified by name and date of . YES Spoke to DWAYNE Ohara from [facility] and DWAYNE Castellano from [facility] Summary: TC ot Nona Larkin is [place], left message regarding dialysis is set up for [place]. It is to start at 11:00 tomorrow but since pt is new to the facility tomorrow she should arrive at 10:40. Verbalized understanding with teach back. TC to DWAYNE Ohara for [facility], asked if pt has had her dialysis transferred to [place]? States yes, dialysis is set up for [place]. Dialysis is to start at 11:00 tomorrow but since pt is new to the facility tomorrow she should arrive at 10:40 Concerns: TC from [facility]ellano at [facility], left message asking if patient has been transferred to [facility] instead of [place]. They need to know where to transport pt tomorrow for dialysis. Watermelon Inspector plan for next outreach: Will follow up at discharge planning Signature Remi Kennedy RN February 22, 2018 Allergies As of Date: 02/22/2018 Noted Allergy Reaction ASPIRIN 01/20/2018 14 - Other: See Comments Comments: Patient states that she bled out every orifice, sts not allowed to take it at all. Patient states she was bleeding out of nose and mouth after one dose. BACTRIM (SULFAMETHOXAZOLE-TRIMETH*05/17/2017 14 - Other: See Comments Comments: My throat swells up. LATEX 05/17/2017 2 - Rash 9 - Itching Comments: Itching and welts. No wheezing or shortness of breath. PENICILLINS 07/14/2004 2 - Rash 9 - Itching Comments: Tolerated ceftriaxone during 11/2017 admission and cefepime during 12/2017 admission TETRACYCLINE 09/29/2010 2 - Rash 8 - GI Upset Comments: Emesis and diarrhea. 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 [3610] Prescriptions as of 02/22/2018 Sig: AMIODARONE 200 MG TABLET Take 1 tablet by mouth once d* CARVEDILOL 3.125 MG TABLET Take 1 tablet by mouth twice * GABAPENTIN 100 MG CAPSULE Take 1 capsule by mouth twice* MELATONIN 3 MG TABLET Take 1 tablet by mouth daily * TORSEMIDE 10 MG TABLET Take 5 tablets by mouth once * INSULIN ASPART U-100 100 UNI* Inject 12 Units subcutaneousl* INSULIN GLARGINE (U-100) 100 * Inject 50 Units subcutaneousl* INSULIN GLARGINE (U-100) 100 * Inject 36 Units subcutaneousl* PANTOPRAZOLE 40 MG TABLET,DEL* Take 40 mg by mouth twice carlos* BACITRACIN ZINC 500 UNIT/GRAM* Apply 1 application to affect* NYSTATIN 100,000 UNIT/GRAM TO* Apply 1 application to affect* ISOSORBIDE MONONITRATE ER 60 * Take 1 tablet by mouth once d* APIXABAN 5 MG TABLET Take 5 mg by mouth twice janeth* SIMVASTATIN 40 MG TABLET Take 40 mg by mouth every mor* IPRATROPIUM-ALBUTEROL 0.5 MG-* Inhale 3 mL as instructed leanne* DEXTROMETHORPHAN-GUAIFENESIN * Take 5-10 mL by mouth every 6* NITROGLYCERIN 0.4 MG SUBLINGU* Dissolve 1 tablet under the t* OXYGEN (HOME THERAPY) Inhale 2.5 L/min as instructe* Problem List As Of Date 02/22/2018 Noted Resolved HOCM (hypertrophic obstructive cardiomyopathy) * 01/23/2018 Priority: I More... SVT (supraventricular tachycardia) (HCC) [I47.1] 01/21/2018 More... Carotid artery disease (HCC) [I77.9] 01/22/2018 CAD (coronary artery disease) [I25.10] Priority: E More... Hypertension [I10] Priority: L More... Hyperlipidemia [E78.5] Pneumonia [J18.9] 10/27/2017 More... COPD (chronic obstructive pulmonary disease) (H* Priority: F More... Sleep apnea [G47.30] Priority: I More... HH (hiatus hernia) [K44.9] 01/21/2018 GERD (gastroesophageal reflux disease) [K21.9] Priority: K More... More... Arthritis [M19.90] Numbness and tingling of right leg [R20.0, R20.* 01/21/2018 Depression [F32.9] Atrial fibrillation (HCC) [I48.91] INVALID FOR* Priority: C More... Uncontrolled type 2 diabetes mellitus with stag*INVALID FOR* Priority: H More... More... More... Heart failure, systolic, acute (HCC) [I50.21] INVALID FOR*01/21/2018 More... Obesity [E66.09] INVALID FOR* Priority: M More... Gout [M10.9] Pacemaker [Z95.0] Priority: D More... Chronic combined systolic and diastolic CHF (co*INVALID FOR* Priority: B More... Elevated troponin [R74.8] INVALID FOR*01/22/2018 Priority: G More... Pulmonary hypertension [I27.20] INVALID FOR* Oral thrush [B37.0] INVALID FOR*01/21/2018 Hyponatremia [E87.1] INVALID FOR* Priority: J More... Hyperkalemia [E87.5] INVALID FOR*01/22/2018 Priority: J Chest pain in adult [R07.9] INVALID FOR*02/12/2018 Priority: A More... Acute renal failure superimposed on stage 3 chr*INVALID FOR* Priority: A More... Encounter Status:Closed by REMI KENNEDY on 02/22/18 PROGRESS Observed: 02/21/2018 Status: COMPLETED Source: [place] 2:48 PM [facility] REPOSITORY HNO ID: [id number] Author: Jameson Kamara) Service: (none) Author Type: Physician Type: Progress Notes Filed: 02/21/2018 2:48 PM Note Text: Reviewed. PROGRESS Observed: 02/21/2018 Status: COMPLETED Source: [place] 2:18 PM [facility] [place] REPOSITORY HNO ID: [id number] Author: Remi Kennedy (Rn) Service: (none) Author Type: Registered Nurse Type: Progress Notes Filed: 02/21/2018 2:42 PM Note Text: TC from Nona at [facility], states she has spoken to Renea at [facility] and they are working on transferring patient. They don't need PCC to do anything at this point. Remi Kennedy RN February 21, 2018 2:42 PM TC from Renea RICE from [facility], states daughter is upset about patient's care and wants to move her. States patient is alert and oriented and did not voice any complaints. When asked pt if she wanted to be transferred to [facility] pt stated I'll do whatever my daughter wants. Discussed transfer to [facility] and moving dialysis from [facility] in [place] to [place]. Renea spoke with Lev at [facility] and they are working on transfer to dialysis at [place]. Renea will work with [facility]. Remi Kennedy RN PROGRESS Observed: 02/21/2018 Status: COMPLETED Source: [place] 11:18 AM [facility] REPOSITORY HNO ID: [id number] Author: Remi Kennedy (Rn) Service: (none) Author Type: Registered Nurse Type: Progress Notes Filed: 02/21/2018 12:08 PM Note Text: TC to Mary at [facility], informed our SW had spoken with their SW about transferring pt from [facility] to [facility]. Patient wants the available bed and will speak to SW at [facility] to start transfer. Also, PCC is working with [facility] to have dialysis transferred from [place] to [place]. TC Domonique, DWAYNE at [facility], informed pt is in [facility] but wants to be transferred to [facility] in [facility]. They have a bed available and we are working on the transfer. [facility] can easily transport patient to [facility] in [place], asking if SW can transfer pt to [facility]. States she will work on the transfer but it might not be completed by Wed when her next dialysis is scheduled. TC to daughter, [facility]. Dgt states they want the bed. Informed we will [facility] but dgt needs to contact [facility] to initiate the transfer, verbalized agreement. Asked how she will get her mom's medications transferred? Instructed to discuss with SW at [facility]. Dgt states she will trasport pt from [facility] to [facility]. Informed [facility] transports residents to [facility] all the time so they would like PCC to ask about transferring pt to [facility]. Informed PCC will contact [facility], verbalized agreement. Remi Kennedy RN PROGRESS Observed: 02/21/2018 Status: COMPLETED Source: [place] 11:00 AM [facility] REPOSITORY HNO ID: [id number] Author: Jameson Kamara) Service: (none) Author Type: Physician Type: Progress Notes Filed: 02/21/2018 11:00 AM Note Text: Reviewed. PROGRESS Observed: 02/21/2018 Status: COMPLETED Source: [place] 10:31 AM [facility] REPOSITORY HNO ID: [id number] Author: Remi KennedyRn) Service: (none) Author Type: Registered Nurse Type: Progress Notes Filed: 02/21/2018 10:44 AM Note Text: PRIMARY CARE COORDINATION FOLLOW-UP NOTE Provider Action/FYI FYI Patient identified by name and date of . YES Spoke to patient and Kennedi from [facility] and Wilma RICE Summary: TC from , [facility]anna [facility] doesn't have transportation and she had to leave a message at [facility]. She will call [facility]. Discussed with SW to check [employer] or [facility]. TC to daughter, gave update on work being done to find another facility. Dgt states her son is at [facility] if they would transport or can we check Shanna Bartholomew, informed SW will check. Discussed dgt's concerns with Wilma RICE and staff nurses for recommendations in the area who have transportation for patient's dialysis. DWAYNE will call facilities regarding open beds. TC to Kennedi at [facility], discussed dgt's concerns with [facility] and asked if she knows of a higher rated SNF. States she wasn't aware of concerns at [facility] and will have her shopper marketing manager look for a more appropriate facility. Concerns: Dgt very upset, states she wants her mom moved from [facility]. States she is very unhappy with that facility and she wants her out of there maliha. Dgt doesn't know of another facility to move her to and would like input from DWAYNE and staff. Watermelon Inspector plan for next outreach: Will follow up one week Signature Remi Kennedy, ALLYSON February 21, 2018 PROGRESS Observed: 02/21/2018 Status: COMPLETED Source: [place] 8:27 AM [facility] REPOSITORY HNO ID: [id number] Author: Jameson Kamara) Service: (none) Author Type: Physician Type: Progress Notes Filed: 02/21/2018 8:27 AM Note Text: Reviewed. LUAD Observed: 02/21/2018 Status: COMPLETED Source: [place] 12:00 AM [facility] REPOSITORY Patient Outreach (FAMPWS) LUZ BACA ([id number]) 1940 F Date Time Provider Department 02/21/18 REMI KENNEDY (RN) [facility] During your visit today, we recorded the following information about you: Remi Kennedy (Rn) 02/21/2018 10:44 AM Signed PRIMARY CARE COORDINATION FOLLOW-UP NOTE Provider Action/FYI FYI Patient identified by name and date of . YES Spoke to patient and Kennedi from [facility] and Wilma RICE Summary: TC from , [facility] doesn't have transportation and she had to leave a message at [facility]. She will call [facility]. Discussed with SW to check [facility] or [facility]. TC to daughter, gave update on work being done to find another facility. Dgt states her son is at [facility] if they would transport or can we check [facility], informed SW will check. Discussed dgt's concerns with Wilma RICE and staff nurses for recommendations in the area who have transportation for patient's dialysis. SW will call facilities regarding open beds. TC to Kennedi at [facility], discussed dgt's concerns with [facility] and asked if she knows of a higher rated SNF. States she wasn't aware of concerns at [facility] and will have her shopper marketing manager look for a more appropriate facility. Concerns: Dgt very upset, states she wants her mom moved from [facility]. States she is very unhappy with that facility and she wants her out of there maliha. Dgt doesn't know of another facility to move her to and would like input from DWAYNE and staff. Watermelon Inspector plan for next outreach: Will follow up one week Signature Remi Kennedy, ALLYSON February 21, 2018 Jameson Kamara) 02/21/2018 11:00 AM Signed Reviewed. Remi Kennedy (Rn) 02/21/2018 12:08 PM Signed TC to Mary at [facility], informed our SW had spoken with their SW about transferring pt from [facility] to [facility]. Patient wants the available bed and will speak to SW at [facility] to start transfer. Also, PCC is working with [facility] to have dialysis transferred from [place] to [place]. DWAYNE Treviño at [facility], informed pt is in [facility] but wants to be transferred to [facility] in [facility]. They have a bed available and we are working on the transfer. [facility] can easily transport patient to [facility] in [place], asking if SW can transfer pt to [facility]. States she will work on the transfer but it might not be completed by Wed when her next dialysis is scheduled. TC to daughter, informed [facility]. Dgt states they want the bed. Informed we will [facility] but dgt needs to contact [facility] to initiate the transfer, verbalized agreement. Asked how she will get her mom's medications transferred? Instructed to discuss with DWAYNE at [facility]. Dgt states she will trasport pt from [facility] to [facility]. Informed [facility] [place] [facility] to [facility] all the time so they would like PCC to ask about transferring pt to [facility]. Informed PCC will contact [facility], verbalized agreement. ALLYSON Buck Kathy (Allyson) 02/21/2018 2:42 PM Signed TC from Nona at [facility], states she has spoken to Renea at [facility] and they are working on transferring patient. They don't need PCC to do anything at this point. Remi Kennedy RN February 21, 2018 2:42 PM TC from Renea RICE from [facility], states daughter is upset about patient's care and wants to move her. States patient is alert and oriented and did not voice any complaints. When DWAYNE asked pt if she wanted to be transferred to [facility] pt stated I'll do whatever my daughter wants. Discussed transfer to [facility] and moving dialysis from [facility] in [place] to [place]. Renea spoke with Lev at [facility] and they are working on transfer to dialysis at [place]. [facility]. ALLYSON Buck Christopher B (Md) 02/21/2018 2:48 PM Signed Reviewed. Allergies As of Date: 02/21/2018 Noted Allergy Reaction ASPIRIN 01/20/2018 14 - Other: See Comments Comments: Patient states that she bled out every orifice, sts not allowed to take it at all. Patient states she was bleeding out of nose and mouth after one dose. BACTRIM (SULFAMETHOXAZOLE-TRIMETH*05/17/2017 14 - Other: See Comments Comments: My throat swells up. LATEX 05/17/2017 2 - Rash 9 - Itching Comments: Itching and welts. No wheezing or shortness of breath. PENICILLINS 07/14/2004 2 - Rash 9 - Itching Comments: Tolerated ceftriaxone during 11/2017 admission and cefepime during 12/2017 admission TETRACYCLINE 09/29/2010 2 - Rash 8 - GI Upset Comments: Emesis and diarrhea. 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 [3614] Prescriptions as of 02/21/2018 Sig: AMIODARONE 200 MG TABLET Take 1 tablet by mouth once d* CARVEDILOL 3.125 MG TABLET Take 1 tablet by mouth twice * GABAPENTIN 100 MG CAPSULE Take 1 capsule by mouth twice* MELATONIN 3 MG TABLET Take 1 tablet by mouth daily * TORSEMIDE 10 MG TABLET Take 5 tablets by mouth once * INSULIN ASPART U-100 100 UNI* Inject 12 Units subcutaneousl* INSULIN GLARGINE (U-100) 100 * Inject 50 Units subcutaneousl* INSULIN GLARGINE (U-100) 100 * Inject 36 Units subcutaneousl* PANTOPRAZOLE 40 MG TABLET,DEL* Take 40 mg by mouth twice carlos* BACITRACIN ZINC 500 UNIT/GRAM* Apply 1 application to affect* NYSTATIN 100,000 UNIT/GRAM TO* Apply 1 application to affect* ISOSORBIDE MONONITRATE ER 60 * Take 1 tablet by mouth once d* APIXABAN 5 MG TABLET Take 5 mg by mouth twice janeth* SIMVASTATIN 40 MG TABLET Take 40 mg by mouth every mor* IPRATROPIUM-ALBUTEROL 0.5 MG-* Inhale 3 mL as instructed leanne* DEXTROMETHORPHAN-GUAIFENESIN * Take 5-10 mL by mouth every 6* NITROGLYCERIN 0.4 MG SUBLINGU* Dissolve 1 tablet under the t* OXYGEN (HOME THERAPY) Inhale 2.5 L/min as instructe* Problem List As Of Date 02/21/2018 Noted Resolved HOCM (hypertrophic obstructive cardiomyopathy) * 01/23/2018 Priority: I More... SVT (supraventricular tachycardia) (HCC) [I47.1] 01/21/2018 More... Carotid artery disease (HCC) [I77.9] 01/22/2018 CAD (coronary artery disease) [I25.10] Priority: E More... Hypertension [I10] Priority: L More... Hyperlipidemia [E78.5] Pneumonia [J18.9] 10/27/2017 More... COPD (chronic obstructive pulmonary disease) (H* Priority: F More... Sleep apnea [G47.30] Priority: I More... HH (hiatus hernia) [K44.9] 01/21/2018 GERD (gastroesophageal reflux disease) [K21.9] Priority: K More... More... Arthritis [M19.90] Numbness and tingling of right leg [R20.0, R20.* 01/21/2018 Depression [F32.9] Atrial fibrillation (HCC) [I48.91] INVALID FOR* Priority: C More... Uncontrolled type 2 diabetes mellitus with stag*INVALID FOR* Priority: H More... More... More... Heart failure, systolic, acute (HCC) [I50.21] INVALID FOR*01/21/2018 More... Obesity [E66.09] INVALID FOR* Priority: M More... Gout [M10.9] Pacemaker [Z95.0] Priority: D More... Chronic combined systolic and diastolic CHF (co*INVALID FOR* Priority: B More... Elevated troponin [R74.8] INVALID FOR*01/22/2018 Priority: G More... Pulmonary hypertension [I27.20] INVALID FOR* Oral thrush [B37.0] INVALID FOR*01/21/2018 Hyponatremia [E87.1] INVALID FOR* Priority: J More... Hyperkalemia [E87.5] INVALID FOR*01/22/2018 Priority: J Chest pain in adult [R07.9] INVALID FOR*02/12/2018 Priority: A More... Acute renal failure superimposed on stage 3 chr*INVALID FOR* Priority: A More... Encounter Status:Closed by BRETNREMI on 02/21/18 ED NOTE Observed: 02/18/2018 Status: COMPLETED Source: [place] 8:55 PM [facility] OTHER [place] REPOSITORY HNO ID: [id number] Author: Alisson Jacobo (Rn), RN Service: (none) Author Type: Registered Nurse Type: ED Notes Filed: 02/18/2018 8:58 PM Note Text: Extensive report called to Violet at [facility]. Pt's daughter stated that our health social work professor spoke with staff at facility, and since patient is a hard stick the IV can remain in. Right AC 20g remained in. ALLYSON Lazo aware of this and felt comfortable. If access is NOT needed, she is able to remove it. CASE MANAGEM Observed: 02/18/2018 Status: COMPLETED Source: [place] 8:55 PM [facility] OTHER [place] REPOSITORY HNO ID: [id number] Author: Jannette Agustin () Service: Care Management Author Type: Board Catcher Type: Care Mgt Progress Note Filed: 02/18/2018 9:55 PM Note Text: CARE MANAGEMENT DISCHARGE NOTE SERVICE DATE: 02/18/2018 SERVICE TIME: 3:40 PM LOS: 0 days Admission Date: 02/18/2018 DISCHARGE ARRANGEMENT (list agency and phone number) prison facility Provider: [facility] CAREGIVER ASSESSMENT: Caregiver is ready, willing and able to meet the patient's needs as recommended by the inter-professional team? No Patient's transition needs and plan for meeting these needs: d/c from ED to SNF Does the patient have an acute stroke diagnosis, or has the patient had a stroke during this admission? No HANDOFF COMMUNICATION: summary of care to be sent, bedside RN called report to SNF TRANSPORTATION ARRANGEMENTS: Ambulance: Transport Agency and Phone: [facility] ambulance ( [facility] ) [phone] / [phone]. Discussion of financial coverage occurred with Patient and dtr/POA. ADDITIONAL CONTACT RESOURCES: dtr/Octavia [phone] FREEDOM OF CHOICE GIVEN: Yes explained to pt and dtr Financial Disclosure Provided The patient and/or family has been given the Provider List: Yes Provider List: Snf Facility Preference: initial first choice [facility], after discussion of needing facility either with dialysis on site or ability to transport to/from dialysis, first choice now [facility] Needs Prior to Discharge: Ready for Discharge Pt presented to the ED, d/c from hospital on 02/17 and reported to ED physician that she missed dialysis today because she was not aware it had been scheduled. Per d/c summary, pt was scheduled for dialysis today. Pt and dtr state they were sent in from PCP office to be admitted to hospital's half-way unit, ENGINE DESIGNER discussed possibility of half-way facility as this hospital does not have half-way unit. Pt agreeable to review SNF list. Discussion with physician, pt will need dialysis on 02/19, therefore would be best served at facility either with dialysis on site or with transportation to/from dialysis. Discussed with pt and dtr, they state first choice is [facility] in [place]. Referral sent, PAS completed, multiple conversations with pt, dtr, and SNF admissions department. Pt was notified that per admission staff, she will be in semi-private room, facility will provide transport in their wheelchair van to/from dialysis as scheduled, and facility is able to transport pt to dialysis on 02/19. Pt reports she has not had SNF stay in the past 60 days. Per SNF admission department, they were able to verify pt's Medicare coverage. Per SNF request, pt also notified of Medicare co-pay after day 20 ($167.50 per day) as she does not have secondary insurance. Pt verbalized understanding of information provided. Pt requests ambulance transport to facility from ED, is aware of and agreeable to possible cost depending on insurance coverage. Pt's dtr very hostile and disagreeable with YVES, RN, and MD throughout ED visit. YVES listened with HEART, offered support as appropriate, and had several lengthy discussions with pt and dtr to inform them of updates regarding SNF referral process and transport scheduling and ETA. Complex d/c. SIGNATURE: YVES Tuttle PATIENT NAME: Luz Baca DATE: February 18, 2018 TIME: 9:39 PM PAGER/CONTACT #: [phone] CASE MANAGEM Observed: 02/18/2018 Status: COMPLETED Source: [place] 8:55 PM CLINIC OTHER CAMPUS REPOSITORY HNO ID: [id number] Author: Pearl Mckeon (Rn), RN Service: Care Management Author Type: Registered Nurse Type: Care Mgt Progress Note Filed: 02/20/2018 9:21 AM Note Text: CARE MANAGEMENT PROGRESS NOTE SERVICE DATE: 02/20/2018 SERVICE TIME: 8:48 AM Late Entry for 02/19/18 1:00 PM LOS: 0 days [facility] [phone] Reanna Redd Nurses call [facility] to report pts. HD unit at [facility] in [place] or [place] was not open when SNF drove pt to facility for #3 HD Session for this pt. today.SNF Nurses are questioning what should they do. CATEGORY CONSULTANT reffered to this CM. Pt. was ER to SNF placement on 02/18/18, was referred from MD office to ER. Pt. missed her HD Sess[place] on 02/18. Dr. Bray Service pgd, CM spoke with [facility] Sharp ux information architect this weekend. Dr. Sharp pgd at 1:30 PM and 2:30 PM by [facility] x 2 no ans to this CM.CM spoke with Zan Chow RN who spoke with Jannette MARINELLI re ER case. Zan Chow RN texted CM that Dr Betancourt said it was part of nephrologys D/C instructions for pt. to have HD on 02/19. Renea from [facility] was to have pt. to [facility] at 0930 on 02/19. Per EMR pt. had HD 02/15 500cc 02/16 1500cc 02/17 2000cc 02/18 No HD 2:40 PM Pete Presley RN Mgr CM pgd re above, 2 N RNs assisted as well as Chas Mitchell RN CM assisted this CM with this case. [facility] called, spoke with Reanna and advised her to call pts attending and explain what occurred, and how he wants to treat pt. I left my [facility] cell phone with Nurse Reanna for any questions. SIGNATURE: Pearl Mckeon RN,BSN, ACM PATIENT NAME: Luz Baca DATE: February 20, 2018 TIME: 8:47 AM PAGER/CONTACT #: [phone] ED NOTE Observed: 02/18/2018 Status: COMPLETED Source: [place] 8:38 PM [facility] OTHER CAMPUS REPOSITORY HNO ID: [id number] Author: Alisson Jacobo (Rn), RN Service: (none) Author Type: Registered Nurse Type: ED Notes Filed: 02/18/2018 8:39 PM Note Text: Dr. Betancourt lanced blister on left leg. This RN dressed with telfa, ABD, and kerlex wrap. Right leg was also weaping through kerlex and so that was also changed in same fashion. Aiden gurwinder, turkey sandwich provided. Daughter remains at and is hostile with staff. Emotional support provided and apologies for the wait to transfer were made by MD and RN. ED NOTE Observed: 02/18/2018 Status: COMPLETED Source: [place] 7:05 PM [facility] REPOSITORY HNO ID: [id number] Author: Luba Kauffman (Rn), RN Service: Emergency Medicine Author Type: Registered Nurse Type: ED Notes Filed: 02/18/2018 7:35 PM Note Text: Report off care to Alisson VALADEZ ED NOTE Observed: 02/18/2018 Status: COMPLETED Source: [place] 6:53 PM [facility] OTHER CAMPUS REPOSITORY HNO ID: [id number] Author: Luba Kauffman (Rn), RN Service: Emergency Medicine Author Type: Registered Nurse Type: ED Notes Filed: 02/18/2018 6:53 PM Note Text: CBC AND DIFFERENTIAL Collected: 02/18/2018 Status: F Source: [place] 5:00 PM [facility] OTHER CAMPUS REPOSITORY TYPE CODE TESTS RESULT OUT OF REFERENCE UNITS RANGE LAB WBC 3.70-11.00 k/uL WBC High 11.03 LAB RBC 3.90-5.20 m/uL Low RBC 3.76 LAB HGB 11.5-15.5 g/dL Low Hemoglobin 11.0 LAB HCT 36.0-46.0 % Low Hematocrit 35.9 LAB MCV 80.0-100.0 fL MCV 95.5 LAB MCH 26.0-34.0 pG MCH 29.3 LAB MCHC 30.5-36.0 g/dL MCHC 30.6 LAB RDWCV 11.5-15.0 % RDW-CV High 15.7 LAB PLTCT 150-400 k/uL Platelet Count 183 LAB MPV 9.0-12.7 fL MPV 9.5 LAB ANEUT % Neut% 78.2 LAB AANEUT 1.45-7.50 k/uL Abs Neut High 8.63 LAB ALYMP % Lymph% 9.0 LAB AALYMP 1.00-4.00 k/uL Low Abs Lymph 0.99 LAB AMONO % Stoddard% 10.8 LAB AAMONO <0.87 k/uL Abs Stoddard High 1.19 LAB AEOS % Eosin% 1.7 LAB AAEOS <0.46 k/uL Abs Eosin 0.19 LAB ABASO % Baso% 0.3 LAB AABASO <0.11 k/uL Abs Baso 0.03 Performed By: #### CBCDIF, PT, CMP, MG1 #### [facility] [address] [place] [address] PROTIME Collected: 02/18/2018 Status: F Source: [place] 5:00 PM CLINIC OTHER CAMPUS REPOSITORY TYPE CODE TESTS RESULT OUT OF RANGE REFERENCE UNITS LAB PSEC 9.7-13.0 sec PT Sec 11.9 LAB INR 0.9-1.3 PT INR 1.2 Result Comment: Vitamin K Antagonist (VKA) Therapeutic Range: INR 2 to 3 (Target INR of 2.5) Note: For patients treated with VKA drugs, such as warfarin, the [place] [employer] 2012 Guideline recommends a therapeutic INR range of 2 to 3 (target INR of 2.5). This recommendation includes high-risk patients with antiphospholipid syndrome with previous arterial or venous thromboembolism, current-generation mechanical or bioprosthetic aortic heart valve replacement. Note: Patients with mechanical aortic valve replacement and additional risk factors for thromboembolic events (atrial fibrillation, previous thromboembolism, LV dysfunction, hypercoagulable conditions) or an older generation mechanical AVR (i.e., ball in-Cage) or any mechanical MVR should have a INR therapeutic range of 2.5 to 3.5 (target INR of 3). Stella GH, et al. Chest 2012, 141:7S-47S Jose R NGUYEN et al. [facility] 2017, 70: 252-289 Performed By: #### CBCDIF, PT, CMP, MG1 #### [facility] [address] [place] [address] COMP METABOLIC PANEL Collected: 02/18/2018 Status: F Source: [place] 5:00 PM CLINIC OTHER CAMPUS REPOSITORY TYPE CODE TESTS RESULT OUT OF REFERENCE UNITS RANGE LAB TP 6.3-8.0 g/dL Protein, Total 6.3 LAB ALB 3.9-4.9 g/dL Low Albumin 3.5 LAB CA 8.5-10.2 mg/dL Low Calcium, Total 8.1 LAB TBIL 0.2-1.3 mg/dL Bilirubin, Total 0.4 LAB ALKP 32-117 U/L Alkaline Phosphatase 96 LAB AST 13-35 U/L AST 25 Result Comment: Results may be falsely increased due to interference by hemolysis. Suggest reorder as clinically indicated. LAB GLU 74-99 mg/dL High Glucose 203 Result Comment: The [place] Diabetes Association (ADA) provides guidance for cutoff values for fasting glucose and random glucose. The ADA defines fasting as no caloric intake for at least 8 hours. Fas ting plasma glucose results between 100 to 125 mg/dL indicate increased risk for diabetes (prediabetes). Fasting plasma glucose results greater than or equal to 126 mg/dL meet the criteria for diagnosis of diabetes. In the absence of unequivocal hyperglycemia, results should be confirmed by repeat testing. In a patient with classic symptoms of hyperglycemia or hyperglycemic crisis, random plasma glucose results greater than or equal to 200 mg/dL meet the criteria for diagnosis of diabetes. Reference: Standards of Medical Care in Diabetes 2016, [place] [employer] Association. Diabetes Care. 2016.39(Suppl 1). LAB BUN 7-21 mg/dL BUN High 52 LAB CRET 0.58-0.96 mg/dL Creatinine High 3.15 LAB NA 136-144 mmol/L Low Sodium 130 LAB K 3.7-5.1 mmol/L Potassium High 5.5 LAB CL 97-105 mmol/L Low Chloride 91 LAB CO2 22-30 mmol/L CO2 29 LAB AGAP 9-18 mmol/L Anion Gap 10 LAB ALT 7-38 U/L ALT 14 LAB GFRAA eGFR- Amer. 17 LAB GFRNAA . eGFR-All Other Races 14 Result Comment: eGFR (Estimated GFR) Units of measure: mL/min/1.73 meters squared eGFR is derived from the reexpressed MDRD Study equation using the following parameters: serum creatinine, age, gender and race. The creatinine assay has been calibrated to be traceable to IDMS. An eGFR <60 mL/min/1.73m2 for >3 months is consistent with chronic kidney disease. Refer to KDOQI guidelines for clinical interpretation. In patients with unstable renal function, e.g. those with acute kidney injury, the eGFR may not accurately reflect actual GFR. Performed By: #### CBCDIF, PT, CMP, MG1 #### [facility] [address] [facility] [phone] MAGNESIUM Collected: 02/18/2018 Status: F Source: [place] 5:00 PM CLINIC OTHER CAMPUS REPOSITORY TYPE CODE TESTS RESULT OUT OF REFERENCE UNITS RANGE LAB MG 1.7-2.3 mg/dL Magnesium 2.3 Performed By: #### CBCDIF, PT, CMP, MG1 #### [facility] [address] [facility] [phone] ED PROV NOTE Observed: 02/18/2018 Status: COMPLETED Source: [place] 4:58 PM [facility] OTHER [place] REPOSITORY HNO ID: [id number] Author: Jose C Betancourt MD Service: Emergency Medicine Author Type: Physician Type: ED Provider Notes Filed: 02/18/2018 10:19 PM Note Text: ED Provider Note Patient Name: Luz Baca SERVICE DATE: 02/18/18 History Patient presents with: Shortness of Breath This is a 68-year-old female with a history of CHF and chronic kidney disease. Patient just got out of the hospital yesterday after being admitted for CHF. Patient ultimately had acute on chronic renal insufficiency which required new dialysis. Patient had a catheter placed on the right side. She had dialysis on Wednesday and Wednesday?today being Wednesday she was supposed to go for dialysis however she states that she did not know she was supposed to go to dialysis. She was evaluated by outpatient case management who feels that the patients cannot take care of her self and that she would qualify for acute rehabilitation facility. Patient was sent to the emergency department for evaluation. PAST MEDICAL HISTORY Diagnosis Date - Arthritis - Atrial fibrillation (HCC) - CAD (coronary artery disease) stents x9, defibrillator, CABG. Seeing Dr. Cardona - Cardiac defibrillator in place - Cardiomegaly - Carotid artery disease (HCC) left - Chronic kidney disease (CKD) stage G3b/A2, moderately decreased glomerular filtration rate (GFR) between 30-44 mL/min/1.73 square meter and albuminuria creatinine ratio between 30-299 mg/g Dr. Martin - COPD (chronic obstructive pulmonary disease) ([facility]) Dr. Cruz - Depression - Diabetes ([facility]) - Diabetic neuropathy ([facility]) - Edema - GERD (gastroesophageal reflux disease) - Gout with hyperuricemia - HH (hiatus hernia) - HOCM (hypertrophic obstructive cardiomyopathy) ([facility]) S/P Septal Myectomy in 2003. Now with LVEF 50% and mod/severe pulm HTN. - HTN (hypertension) - Hyperlipidemia - Morbid obesity with BMI of 40.0-44.9, adult ([facility]) - Sleep apnea 2011 not on CPAP, unable to tolerate mask 02/2017 - SVT (supraventricular tachycardia) ([facility]) NSVT and questionable VT in 2003 post op PAST SURGICAL HISTORY Procedure Laterality Date - CHOLECYSTECTOMY HX - HEART SURGERY HX 07/18/2004 Septal myectomy and CABG x2 (DEBORAH-LAD, SVG-PDA). - HYSTERECTOMY HX - IANDD PERIANAL ABSCESS - PAST SURGICAL HISTORY OF left breast nodule removed - PAST SURGICAL HISTORY OF skin lesions removed FAMILY HISTORY Problem Relation Age of Onset - Hypertension Mother living at age 93, HTN - Heart Failure Mother [place] - Cancer Father age 71, lung cancer Social History Social History Main Topics - Smoking status: Former Smoker Packs/day: 2.50 Years: 43.00 Types: Cigarettes Start date: 1961 Quit date: 07/07/2004 - Smokeless tobacco: Never Used - Alcohol use No - Drug use: No - Sexual activity: Not on file ALLERGIES Allergen Reactions - Aspirin Other: See Comments Patient states that she bled out every orifice, sts not allowed to take it at all. Patient states she was bleeding out of nose and mouth after one dose. - Bactrim [Sulfametho* Other: See Comments My throat swells up. - Latex Rash, Itching Itching and welts. No wheezing or shortness of breath. - Penicillins Rash, Itching Tolerated ceftriaxone during 11/2017 admission and cefepime during 12/2017 admission - Tetracycline Rash, GI Upset Emesis and diarrhea. - Atorvastatin Rash - Codeine Other: See Comments Numbness - Dilaudid [Hydromorp* Mental Status Change - Meperidine - Pentazocine - Pioglitazone Unknown - Propoxyphene Review of Systems Constitutional: Negative for chills and fever. Respiratory: Positive for shortness of breath. Cardiovascular: Positive for chest pain and leg swelling. Neurological: Positive for weakness. All other systems reviewed and are negative. Physical Exam BP 116/65 Pulse 63 Temp (Src) 98 (Oral) Resp 16 Ht 5' 8 (1.73m) Wt 232 lb (105.2kg) SpO2 92% BMI 35.28 kg/(m2). Physical Exam Constitutional: She is oriented to person, place, and time. She appears well-developed. HENT: Head: Normocephalic. Eyes: Conjunctivae are normal. Neck: Normal range of motion. Cardiovascular: Normal rate, regular rhythm and normal heart sounds. Pulmonary/Chest: Effort normal. Abdominal: Soft. Musculoskeletal: Normal range of motion. Neurological: She is alert and oriented to person, place, and time. Skin: Nursing note and vitals reviewed. Diagnostic Testing ED Labs Ordered and Reviewed - No data to display Procedures Medical Decision Making MDM Course: Vital signs were reviewed. Triage records were reviewed. Medical records were reviewed. Nursing notes were reviewed and incorporated. Medical Decision Making: Patient presents from home after being discharged from the hospital yesterday. Patient was sent in by their primary care physician because they need acute rehabilitation. Patient does complain of being short of breath. She is due for dialysis today per the patient and I was able to see that in her discharge summary. The patient states that she did not know that she needed dialysis today so she did not get it. Her daughter came to the bedside and stated that she was not supposed to have dialysis to Wednesday which is not the case. That is 3 days from now. Patient was evaluated for any abnormalities with her electrolytes. Her potassium was slightly elevated but similar to yesterday's. Discussed with nephrology who states that she can go to the nursing facility and have dialysis tomorrow however recommended Kayexalate tonight. Social work was able to make arrangements at a nursing facility that does dialysis. They will be able to do dialysis tomorrow afternoon. Of note the daughter was very upset that she had to be transferred to a facility and felt that this hospital was the facility. We did tell her that [facility] is not an acute rehabilitation facility. She continued to be upset. She was also upset that there was a blister on her left leg that was not being addressed. I was able to unroofed the blister with a scalpel and the fluid drained out. The wound was dressed along with the rest of her leg which has chronic swelling and edema. ED Course / Clinical Impression Clinical Impressions as of Feb 18 2211 Acute renal failure superimposed on chronic kidney disease, on chronic dialysis, unspecified acute renal failure type (HCC) Hyperkalemia Plan The Patient was DISCHARGED: Counseled patient regarding Need for a rehabilitation facility. Discharged home with verbal and written instructions. They were instructed to return as needed for persistent or worsening symptoms or any new concerns. Condition at time of disposition: stable SIGNATURE: MD Jozef Clifton, Jose C Terry MD 02/18/18 2219 XR CHEST 1V FRONTAL Observed: 02/18/2018 Status: F Source: [facility] 4:31 PM [facility] OTHER [place] REPOSITORY * * *Final Report* * * DATE OF EXAM: Feb 18 2018 4:31PM MDX [id number] - XR CHEST 1V FRONTAL PORT / PROCEDURE REASON: SOB (shortness of breath) * * * * Physician Interpretation * * * * EXAMINATION: CHEST RADIOGRAPH (PORTABLE SINGLE VIEW AP) Exam Date/Time: 02/18/2018 4:31 PM Indication: SOB (shortness of breath) MQ: [id number] Comparison: Chest x-ray on 02/15/2018 RESULT: See impression. IMPRESSION: Lines, tubes, and devices: Stable right IJ catheter and left chest single chamber AICD. Lungs and pleura: The right lung and left upper lung appear clear. Limited evaluation of the left mid to lower lung zones. No large pleural effusion on the right side. The left lateral costophrenic angle is not visualized. Patient's chin overlying the upper chest. Cardiomediastinal silhouette: There is prominence of the cardiac silhouette however not fully characterized on this portable single view. Other: Status post median sternotomy and CABG. Service Delivery Supervisor: PSCB Transcribe Date/Time: Feb 18 2018 4:33P Dictated by : LISA MILLER MD This examination was interpreted and the report reviewed and electronically signed by: LISA MILLER MD on Feb 18 2018 4:35PM EST [id number] ED NOTE Observed: 02/18/2018 Status: COMPLETED Source: [place] 3:29 PM [facility] [place] REPOSITORY HNO ID: [id number] Author: Cyndie Woods (Rn), RN Service: (none) Author Type: Registered Nurse Type: ED Notes Filed: 02/18/2018 3:31 PM Note Text: Pt was discharged from hospital yesterday for CHF. Today began having increased SOB. Was driving (with family) to hospital and had to pull into because she felt too SOB. Pt was 91% on her normal 2.5 liters of oxygen when she arrived to . Pt currently on 5L 95%. ED NOTE Observed: 02/18/2018 Status: COMPLETED Source: [place] 3:25 PM [facility]AMP[facility] REPOSITORY HNO ID: [id number] Author: Pat Martinez ([facility] [place] [place] Service: (none) Author Type: Health Ceo And President Type: ED Notes Filed: 02/18/2018 3:25 PM Note Text: Bed: ED-06 Expected date: Expected time: Means of arrival: Comments: Princess PROGRESS Observed: 02/18/2018 Status: COMPLETED Source: [place] 12:20 PM [facility] REPOSITORY HNO ID: [id number] Author: Remi Kennedy (Rn) Service: (none) Author Type: Registered Nurse Type: Progress Notes Filed: 02/18/2018 2:35 PM Note Text: TRANSITION CARE MANAGEMENT (TCM) INITIAL CONTACT Provider Action/FYI: TC to Dr. Andrew at [facility] ER, gave report regarding weakness, safety in home, difficulty getting to dialysis, blood blister on LLE with edema and constipation. Dr. Andrew feels pt requires half-way facility and agreed with sending pt back to hospital TC to patient and dgt, pt agreed to go back to hospital but refuses squad. Dgt states she will drive the patient. Discussed with PCP very concerned about patient's safety in home over the weekend if PCC/SW can't get pt admitted to SNF today. Instructed to have pt go back to [facility]. TC by SW to [facility] to have pt admitted to inpatient Rehab or TCU, states they don't feel pt is eligible for their inpatient skilled care and they don't have a bed in TCU. Instructed to try to get pt in another SNF TC to [facility], asked if the nurse could make a visit today due to blister on leg, constipation and pt's weakness. Heading And Priming OperatorKennedi states if her nurse goes out to the home and the patient is as bad as she sounds they will call the squad and send her back to hospital. TC to [facility], pt is scheduled for dialysis on Initial contact with patient post discharge, spoke to daughter, Lev Andujar @ [facility] and Vanessa at [facility]. Patient identified by name and . SUMMARY: -Pt discharged from [place] on 02/17. -Follow up appointment on . -Medication review done no. 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 Patient is 2 person assist. Pt discharged home, no wheelchair, pt has to walk down steps to get to car for dialysis and MD appointment Pt is very weak and difficult ambulation with 2 person assist Pt has 50 cent size blood blister that is elevated 1/2 on her LLE. Blister intact at this time but legs very edematous. Dgt states staff were wrapping legs in hospital but she wasn't sent home with any wraps or protective dressing for blister Pt states blister stings and noriega like on fire Pt is very constipated. Dgt gave several small fleets enemas with no results BS last night in the 80's and FBS this AM was 78. Pt held Lantus insulin because she was afraid of low BS Discussion with patient, dgt and Wali CC DWAYNE, Wilma re: pt's safety in home and concern of having to walk down stairs to get to dialysis appts. NEW MEDICATIONS: None MEDS HELD/DISCONTINUED: albuterol (PROVENTIL) 2.5 mg BRIEF HOSPITAL COURSE: Acute renal failure superimposed on stage 3 chronic kidney disease (HCC) 02/12/2018 - Present ? Current Assessment AND Plan ? ? ? Assessment: the renal failure was set off by the need for diuresis with cardiorenal syndrome. Scheduled for dialysis tomorrow 02/18 PLAN: patient will most likely be permanently on dialysis because of fluid balance problems from her right heart failure ? ? Chronic combined systolic and diastolic CHF (congestive heart failure) ([facility]) 12/10/2017 - Present ? Overview ? ? Pt was just hospitalized for CHF exacerbation from 01/20/18-01/23/18. BNP 1300 improved from 2145 from last admit. Continue home meds. ? ? Current Assessment AND Plan ? ? ? Assessment: with her renal function fluid balance is been very difficult and she does have cardiorenal syndrome PLAN: proceeding with dialysis on an ongoing basis ? ? Atrial fibrillation ([facility]) 09/23/2010 - Present ? Overview ? ? On eliquis. S/p pacemaker. Monitor on tele. ? ? Current Assessment AND Plan ? ? ? Assessment: with rate suppression she is almost always paced PLAN: continue current medications including Eliquis ? ? ? Pacemaker Unknown - Present ? Overview ? ? Had recent device interrogation 12/2017. ? ? Current Assessment AND Plan ? ? ? Assessment: Problem is stable with current regimen. ? PLAN: Continue current regimen ? CAD (coronary artery disease) Unknown - Present ? Overview ? ? CABGx2 (DEBORAH-LAD, SVG-PDA ) in 2003 ? ? Current Assessment AND Plan ? ? Uncontrolled type 2 diabetes mellitus with stage 3 chronic kidney disease, with long-term current use of insulin ([facility]) 09/23/2004 - Present ? Current Assessment AND Plan ? ? ? Hemoglobin A1C (%) Date Value 01/26/2018 12.0 01/20/2018 12.3 10/27/2017 16.1 05/17/2017 10.0 2010 8.4 Hemoglobin A1c (%) Date Value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 City, State, Zip ? Phone Number ? Appointment Date ? Appointment Time ? Additonal Instructions ? Medical Follow-Up Appointment Specialty Charge [facility] [phone] NEW DIALYSIS [facility] Agency [facility] IM letter given to uLz on 02/17/18. Tasked for PCP follow up SIGNATURE: Vanessa Gonzalez RN PATIENT NAME: Luz Baca DATE: February 17, 2018 TIME: 11:15 AM PAGER/CONTACT #: [phone] CONSULT PROG Observed: 02/17/2018 Status: COMPLETED Source: [place] 10:41 AM CLINIC OTHER CAMPUS REPOSITORY O ID: [id number] Author: Malena Bray Service: Nephrology Author Type: Physician Type: Consult Progress Note Filed: 02/17/2018 10:43 AM Note Text: Patient seen and examined. Still with some pain over catheter site - no external bleeding. Some edema and bruising. No exudate. For 3rd dialysis today. She thinks breathing and edema a bit improved. Blood pressure 128/60, pulse 80, temperature 36.7 ?C (98.1 ?F), temperature source Oral, resp. rate 16, height 172.7 cm (5' 8), weight 116.2 kg (256 lb 2.8 oz), SpO2 91 %. Intake/Output Summary (Last 24 hours) at 02/17/18 1041 Last data filed at 02/17/18 0847 Gross per 24 hour Intake 566 ml Output 1825 ml Net -1259 ml Gen: weak Resp: diminished BS with poor AE CVS: no rub Abd: soft Ext: 1+ edema K 5.4, Cr 3.3 Hb 10.6 Urine Na < 10, Up/c 0.1 Vit D 15, PTH 198 Renal US no obstruction Impression: 1. ROMÁN on CKD 3 due to diuresis of right > left CHF -poor renal perfusion suggested by low urine Na -Cr has worsened with each diuretic attempt but she remains volume overloaded and with hyperkalemia 2. Edema multifactorial from right sided CHF and gabapentin 3. Hyperkalemia due to #1 4. Underlying CKD 3 followed [address] my partner Dr. Martin 5. Hyperuricemia now on allopurinol ? Plan: 1. Changed to oral torsemide 2. 3 consecutive HD/UF, #2 planned today and #3 planned for tomorrow -plan for HD tomorrow to get on planned MWF schedule as well 3. Low K diet 4. Added oral Vit D 5. Decrease gabapentin to 100mg BID due to contribution to edema and ESRD dosing 6. Started allopurinol 100mg daily 7. Outpatient dialysis placement at [facility] 3x/week under my service on discharge OK with me for DC planning if stable after dialysis today or tomorrow ? PLAN OF CARE Observed: 02/17/2018 Status: COMPLETED Source: [place] 8:03 AM [facility] OTHER CAMPUS REPOSITORY HNO ID: [id number] Author: Dina Bowman MD Service: Endocrinology Author Type: Physician Type: Plan of Care Filed: 02/17/2018 8:04 AM Note Text: Endocrinology Plan of Care Note Patient with mild hypoglycemia last evening. Insulin requirements have decreased with renal failure, initiation of dialysis. Decreased insulin doses to: Lantus 15 units qam only Humalog 6 units sc qac Dina Bowman MD CBC Collected: 02/17/2018 Status: F Source: [place] 4:15 AM [facility] OTHER [place] REPOSITORY TYPE CODE TESTS RESULT OUT OF REFERENCE UNITS RANGE LAB WBC 3.70-11.00 k/uL WBC 9.07 LAB RBC 3.90-5.20 m/uL Low RBC 3.65 LAB HGB 11.5-15.5 g/dL Low Hemoglobin 10.6 LAB HCT 36.0-46.0 % Low Hematocrit 35.1 LAB MCV 80.0-100.0 fL MCV 96.2 LAB MCH 26.0-34.0 pG MCH 29.0 LAB MCHC 30.5-36.0 g/dL Low MCHC 30.2 LAB RDWCV 11.5-15.0 % RDW-CV High 15.4 LAB PLTCT 150-400 k/uL Platelet Count 175 LAB MPV 9.0-12.7 fL MPV 9.5 Performed By: #### CBC, CMP, PHOS #### [facility] [address] [facility] [phone] COMP METABOLIC PANEL Collected: 02/17/2018 Status: F Source: [place] 4:15 AM [facility] REPOSITORY TYPE CODE TESTS RESULT OUT OF REFERENCE UNITS RANGE LAB TP 6.3-8.0 g/dL Low Protein, Total 5.9 LAB ALB 3.9-4.9 g/dL Low Albumin 3.4 LAB CA 8.5-10.2 mg/dL Low Calcium, Total 8.0 LAB TBIL 0.2-1.3 mg/dL Bilirubin, Total 0.5 LAB ALKP 32-117 U/L Alkaline Phosphatase 66 LAB AST 13-35 U/L AST 21 Result Comment: Results may be falsely increased due to interference by hemolysis. Suggest reorder as clinically indicated. LAB GLU 74-99 mg/dL Glucose 92 Result Comment: The [place] [employer] Association (ADA) provides guidance for cutoff values for fasting glucose and random glucose. The ADA defines fasting as no caloric intake for at least 8 hours. Fas ting plasma glucose results between 100 to 125 mg/dL indicate increased risk for diabetes (prediabetes). Fasting plasma glucose results greater than or equal to 126 mg/dL meet the criteria for diagnosis of diabetes. In the absence of unequivocal hyperglycemia, results should be confirmed by repeat testing. In a patient with classic symptoms of hyperglycemia or hyperglycemic crisis, random plasma glucose results greater than or equal to 200 mg/dL meet the criteria for diagnosis of diabetes. Reference: Standards of Medical Care in Diabetes 2016, [place] [employer] Association. Diabetes Care. 2016.39(Suppl 1). LAB BUN 7-21 mg/dL BUN High 73 LAB CRET 0.58-0.96 mg/dL Creatinine High 3.30 LAB NA 136-144 mmol/L Low Sodium 134 LAB K 3.7-5.1 mmol/L Potassium High 5.4 LAB CL 97-105 mmol/L Low Chloride 92 LAB CO2 22-30 mmol/L CO2 High 31 LAB AGAP 9-18 mmol/L Anion Gap 11 LAB ALT 7-38 U/L ALT 16 LAB GFRAA eGFR- Amer. 16 LAB GFRNAA . eGFR-All Other Races 14 Result Comment: eGFR (Estimated GFR) Units of measure: mL/min/1.73 meters squared eGFR is derived from the reexpressed MDRD Study equation using the following parameters: serum creatinine, age, gender and race. The creatinine assay has been calibrated to be traceable to IDMS. An eGFR <60 mL/min/1.73m2 for >3 months is consistent with chronic kidney disease. Refer to KDOQI guidelines for clinical interpretation. In patients with unstable renal function, e.g. those with acute kidney injury, the eGFR may not accurately reflect actual GFR. Performed By: #### CBC, CMP, PHOS #### [facility] [address] [place] [address] PHOSPHORUS Collected: 02/17/2018 Status: F Source: [place] 4:15 AM CLINIC OTHER [place] REPOSITORY TYPE CODE TESTS RESULT OUT OF REFERENCE UNITS RANGE LAB PHOS 2.7-4.8 mg/dL Phosphorus 4.5 Performed By: #### CBC, CMP, PHOS #### [facility] [address] [facility] [phone] PROGRESS Observed: 02/16/2018 Status: COMPLETED Source: [place] 5:29 PM [facility] REPOSITORY HNO ID: [id number] Author: Frantz (Rn) ALLYSON Escalera Service: Dialysis Author Type: Registered Nurse Type: Progress Notes Filed: 02/16/2018 5:30 PM Note Text: Signed HD consent verified Hep B sag (negative) 02/15/2018 Report from Hospital RN: Gia Walters Access: Right chest CVC: site bloody, dressing dry and intact. Connections secure, saline line double clamped, hemosafe applied x 2. Dressing changed per protocol, site benign, dressing dry and intact. Hemodialysis complete. 2.5 hour run, 3k bath. Net fluid removed = 1500 ml. Patient tolerated HD tx well. Right chest CVC: site benign, dressing dry and intact. Lumen flushed with NS, filled to volume with Heparin, capped and clamped. Report given to Hospital RN Antonia Guzman THERAPY NT Observed: 02/16/2018 Status: COMPLETED Source: [place] 2:37 PM [facility] REPOSITORY HNO ID: [id number] Author: Vaibhav OsheaPt) Martir Service: Physical Therapy Author Type: Physical Therapist Type: Therapy (PT/OT/Speech/Resp) Filed: 02/16/2018 3:10 PM Note Text: Physical Therapy Treatment SERVICE DATE: 02/16/2018 SERVICE TIME: 1150 to 1250 (split session [id number] AND 1245 - 1250 to allow MD consult, meal) ROOM: [place] [address] Recommended Discharge Disposition: Home PT Recommended Discharge Disposition Comments: With current acute illness, patient demonstrates decreased functional mobility indicating benefit of continued skilled therapy services post acute stay. Anticipated Discharge Needs: Physical Assist at Home;Supervision at Home Physical Assist at Home for: Transfers;Ambulation;Cleaning;Laundry;Meals;Medication Management;Stairs;Self Care;Shopping;Transportation;Wheelchair Mobility Supervision at Home due to: (safety) Recommended Discharge Equipment: No equipment needs anticipated PT Recommendations to Nursing: Ambulate with device;Transfer to/from chair;OOB for Meals;Utilize bed in chair position;Sit at edge of bed;With assist of 2 people (use of commode chair) Device: Wheeled Walker (gait belt) PT 6 Clicks Score: 18 Precautions/Activity Restrictions: Cardiac;Fall Risk;Lines/Tubes/Drains Isolation Type: None ASSESSMENT : Patient reporting increased weakness, R chest pain at dialysis catheter site. Patient requiring increased assist with basic mobility AND self care/feeding. Educated daughter in use of bed controls to assist in positioning for meals AND comfort. Limited therapy session due to fatigue, pain, weakness. Recommend limiting OOB activity to use of commode w/assist of 2, as able. Question patient ability to safely return home in current condition. Patient Disposition at Start of Session: Family Present (Sitting EOB) Patient Disposition at End of Session: Supine in Bed;Call Bear in [place] (family present) Tolerance Limited By Fatigue;Pain Physical Therapy Problem List: Education Deficit;Edema;Pain;Safety Deficits;Impaired Self Care;Decreased Activity Tolerance;Decreased Range Of Motion;Decreased Strength;Functional Mobility Impairment;Balance Impaired;Decreased Skin Integrity Patient /Caregiver Goals: Go Home Goals for Plan of Care: Able to perform HEP with: Supervision (x20 reps sitting/supine BLE ex for funct motion AND stgth) Transfer supine to/from sit with: Supervision (safe technique) Transfer sit to/from stand with: Supervision (w/walker, safe technique) Ambulate with: Supervision (safe technique) Distance: x150' for basic home AND self care mobility Device: Wheeled Walker Ambulate up and down steps with: Minimal Assistance (safe technique) Number of steps: 2 Device: Cane Goal: Patient demonstrates min shortness of breath with above basic mobility, with improved activity tolerance Progress Toward Goals: Progressing as expected Rehab Potential: Good (for stated goals) PLAN: Treatment Frequency (times per week): 4 Current admission Treatment Interventions: Education;Self Care / Home Management;Energy Conservation Training;Joint Mobility;Strengthening;Functional Mobility Training;Balance Training;Neuromuscular Re-education;Edema Management;Pain Management Plan of Care developed with: Patient;Family;Caregiver TREATMENT INTERVENTIONS: Therapy Diagnosis: Reduced mobility-other;Muscle Weakness (generalized);General symptoms and signs-other Interventions Provided: Therapeutic Activity (25028) Therapeutic Activity (06693) Treatment Minutes: 15 1 unit Skilled Intervention(s):Educated patient to limit sitting EOB with current c/o increased weakness. Instructed patient in sit to supine using safe, effective technique Instructed daughter in use of bed in chair position to allow patient to rest AND for upright posture to eat meal. Following lunch, instructed patient in log roll technique w/use of bed rail. Instructed patient in position change to assist w/pain reduction. Education in noted increase in deficits. Notified RN of patient status, performance, recommendation for assist of 2 for commode transfer. Total Timed Code Treatment Minutes: 15 Total Treatment Time (minutes): 15 FUNCTIONAL G CODE: PT 6 Clicks Score: 18 (02/11/18 1510) Mobility: Walking and Moving Around Current Status (G8978): CK (02/11/18 1510) Mobility: Walking and Moving Around Goal Status (G8979): CJ (02/11/18 1510) Based on clinical assessment and the score on the 6 Clicks Functional Assessment Tool, the G code and corresponding severity modifiers are documented above. SUBJECTIVE: Current Hospital Course: Chart reviewed; 02/15/18 dialysis catheter placed R IJ. Underwent dialysis 02/15, planned for 02/16. Reason for Physical Therapy Consult : PT eval AND treat for safety assessment Relevant Past Medical History: Presented with chest pain. Admitted w/elevated cardiac enzymes, CHF PMHx: hypertrophic obstructive cardiomyopathy, CAD/mult stents AND CABG, CHF, CKD, COPD, pacemaker, DMII, sleep apnea Patient Report: Patient appears dazed, reporting R chest pain at dialysis catheter site, c/o weakness. Daughter with questions regarding dialysis, with basic dialysis rationale provided, detailed questions referred to MD. Home Environment Patient Lives With: Family (daughter) Assistance Available: 24 Hour Entry To Home: Stairs;Without Rail Number Of Stairs Into Home: 2 Number Of Stairs To Bed/Bath: 1st floor set up Tub/Shower Type: Tub shower combination Laundry: Daughter completes Equipment Owned: Commode-Bedside;Grab Bars-Shower;Cane;Wheeled Walker;Hospital Bed;Home Oxygen Prior Functional Level: Required Assistance Assistance Required With: Transportation;Shopping;Self Care;Safety;Meals;Laundry;Cleaning Prior Functional Level Comments: Requires assist PRN for ADLs, dtr completes IADLs, ambulates with wheeled walker, on 2-3 L of Home O2 OBJECTIVE: bulky taped dressing R chest, no drainage 07/27 R chest pain Awake, lethargic Follows 1 step commands w/ Mod cues CURRENT FUNCTIONAL STATUS: Cuing provided for functional mobility as noted in above interventions. Current Functional Mobility Assist Level Additional Information Rolling Moderate Assistance (w/mod elevation HOB, use of rail) Assist for trunk management, complete roll Supine to Sit Minimal Assistance (w/mod elevated HOB, use of bed rail) Not performed this session Sit to Supine Moderate Assistance (w/min elevation HOB, use of rail) Scooting Moderate Assistance (supine repositioning in bed) Sit to Stand Minimal Assistance (w/walker, wide base) Not performed this session Stand to Sit Minimal Assistance (w/walker, wide base) Not performed this session Bed to Chair Toilet/Commode Gait Contact Guard Assistance Gait Device: Wheeled Walker (gait belt) Gait Distance (feet): x50' not performed this session Stairs Curb Step Car Transfer General Gait Deviations: Jane decreased;Step length decreased;Flexed trunk posture;Wide base of support;Shuffling Gait;Difficulty changing direction/turning;Non-functional gait speed (slow, deliberate pace, shortness of breath) Balance: Static Sitting;Dynamic Sitting;Static Standing;Dynamic Standing Static Sitting Balance: Stand By Assistance Dynamic Sitting Balance: Supervision Static Standing Balance: Stand By Assistance (w/walker, wide base) Dynamic Standing Balance: Minimal Assistance (w/walker, wide base) Standing not performed this session. Anticipate need for increased assist due to weakness. Please see discipline specific clinical documentation flowsheet for complete details for this therapy evaluation/treatment. SIGNATURE: Vaibhav Mcmahan PT PATIENT NAME: Luz Baca DATE: February 16, 2018 TIME: 2:37 PM PAGER/CONTACT #: [phone] PROGRESS Observed: 02/16/2018 Status: COMPLETED Source: [place] 2:07 PM CLINIC OTHER CAMPUS REPOSITORY HNO ID: [id number] Author: Micha Nesbitt MD Service: Hospital Medicine Author Type: Physician Type: Progress Notes Filed: 02/16/2018 2:08 PM Note Text: SERVICE DATE: 02/16/2018 SERVICE TIME: 2:07 PM HOSPITAL MEDICINE PROGRESS NOTE NIGHT AND WEEKEND COVERAGE: Nights: Please contact pager [phone]. 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 Onset was 5:00 this morning. It is intermittent in nature described as sharp stabbing and fluttering. It is midsternal. It lasts 5 minutes before resolving. Consultants: Dr. Asa Nair Disposition: [facility] SUBJECTIVE Interval HPI:No chest pain or shortness of breath. set up for dialysis on Wednesday at [facility]. She is for dialysis this afternoon and is having some pain at the Vas-Cath site. Dr. Bray thinks this is from a hematoma under the site of entry of the Vas-Cath. patient will get dialysis this afternoon and then plans for discharge tomorrow as long as she stable. OBJECTIVE Reviewed lines, drains, AND airways. Need to be continued . BP 104/53 Pulse 76 Temp 36.5 ?C (97.7 ?F) (Axillary) Resp 16 Ht 172.7 cm (5' 8) Wt 116.5 kg (256 lb 13.4 oz) SpO2 96% BMI 39.05 kg/m? GENERAL: Alert, no distress, cooperative NECK: No Jugulovenous distention - vas catheter placed on right with tunneled catheter LUNGS: Clear without respiratory distress CARDIAC: RRR - probably paced with periods of A. fib without murmur, rub, or gallop ABDOMEN: Abdomen soft, non-tender, BS normal, No masses or organomegaly EXTREMITIES: Trace edema No cords NEURO: Grossly normal cognition, motor function, and cranial nerves. DATA: Diagnostic tests reviewed for today's visit: Most recent labs Overview was reviewed. Pulse ox CARE COORDINATION: No Patient Care Coordination Note on file. ASSESSMENT AND PLAN Overview, Assessment AND Plan, all Hosp Problems Active Hospital Problems as of 02/16/2018 Noted - Resolved A Acute renal failure superimposed on stage 3 chronic kidney disease (HCC) 02/12/2018 - Present Current Assessment AND Plan Assessment: the renal failure was set off by the need for diuresis with cardiorenal syndrome. PLAN: patient will most likely be permanently on dialysis because of fluid balance problems from her right heart failure B Chronic combined systolic and diastolic CHF (congestive heart failure) ([facility]) 12/10/2017 - Present Overview Pt was just hospitalized for CHF exacerbation from 01/20/18-01/23/18. BNP 1300 improved from 2145 from last admit. Continue home meds. Current Assessment AND Plan Assessment: with her renal function fluid balance is been very difficult PLAN: proceeding with dialysis C Atrial fibrillation ([facility]) 09/23/2010 - Present Overview On eliquis. S/p pacemaker. Monitor on tele. Current Assessment AND Plan Assessment: with rate suppression she is almost always paced PLAN: continue current medications including Eliquis D Pacemaker Unknown - Present Overview Had recent device interrogation 12/2017. Current Assessment AND Plan Assessment: Problem is stable with current regimen. PLAN: Continue current regimen E CAD (coronary artery disease) Unknown - Present Overview CABGx2 (DEBORAH-LAD, SVG-PDA ) in 2003 Current Assessment AND Plan Assessment: Problem is stable with current regimen. PLAN: Continue current regimen H Uncontrolled type 2 diabetes mellitus with stage 3 chronic kidney disease, with long-term current use of insulin ([facility]) 09/23/2004 - Present Current Assessment AND Plan Hemoglobin A1C (%) Date Value 01/26/2018 12.0 01/20/2018 12.3 10/27/2017 16.1 05/17/2017 10.0 2010 8.4 Hemoglobin A1c (%) Date Value 10/27/2017 >15 Assessment: discussion with patient about diabetic education PLAN: close follow-up for better glycemic control I Sleep apnea Unknown - Present Overview Wears CPAP at home, continue. J Hyponatremia 01/20/2018 - Present L Hypertension Unknown - Present Overview Stable, continue home meds. M Obesity 2010 - Present Medication and Non-Pharmacologic VTE Prophylaxis/Anticoagulants 01/27/182129 vte non-pharmacologic prophylaxis - none indicated 01/27/182129 vte current anticoag therapy VTE Prophylaxis: VTE prophylaxis appropriate Plan of care discussed with: Patient, Family/Other: daughter, Erwin SanchezALLYSON and Consultants: Dr. Bray SIGNATURE: Micha Nesbitt MD PATIENT NAME: Luz Baca DATE: February 16, 2018 TIME: 2:07 PM PAGER/CONTACT #: CONSULT PROG Observed: 02/16/2018 Status: COMPLETED Source: [place] 12:59 PM [facility] REPOSITORY HNO ID: [id number] Author: Malena Bray Service: Nephrology Author Type: Physician Type: Consult Progress Note Filed: 02/16/2018 1:01 PM Note Text: Patient seen and examined. Feels weak and tired. Having some pain at dialysis catheter site. Still has pressure dressing applied. She is being set up as an outpatient at [facility]. Blood pressure 104/53, pulse 76, temperature 36.5 ?C (97.7 ?F), temperature source Axillary, resp. rate 16, height 172.7 cm (5' 8), weight 116.5 kg (256 lb 13.4 oz), SpO2 96 %. Intake/Output Summary (Last 24 hours) at 02/16/18 1300 Last data filed at 02/16/18 0905 Gross per 24 hour Intake 860 ml Output 975 ml Net -115 ml Gen: weak Resp: diminished BS with poor AE CVS: no rub Abd: soft Ext: 1+ edema K 5.1, Cr 3.2, BUN 102, Phos 5.2 Hb 11.2 Urine Na < 10, Up/c 0.1 Vit D 15, PTH 198 Renal US no obstruction Impression: 1. ROMÁN on CKD 3 due to diuresis of right > left CHF -poor renal perfusion suggested by low urine Na -Cr has worsened with each diuretic attempt but she remains volume overloaded and with hyperkalemia 2. Edema multifactorial from right sided CHF and gabapentin 3. Hyperkalemia due to #1 4. Underlying CKD 3 followed by my partner Dr. Martin 5. Hyperuricemia now on allopurinol ? Plan: 1. Changed to oral torsemide 2. 3 consecutive HD/UF, #2 planned today and #3 planned for tomorrow 3. Low K diet 4. Added oral Vit D 5. Decrease gabapentin to 100mg BID due to contribution to edema and ESRD dosing 6. Started allopurinol 100mg daily 7. Outpatient dialysis placement at [facility] 3x/week under my service on discharge ? CASE MANAGEM Observed: 02/16/2018 Status: COMPLETED Source: [place] 10:27 AM [facility] REPOSITORY HNO ID: [id number] Author: Vanessa Loomis (Rn) ALLYSON Gonzalez Service: Case Management Author Type: Registered Nurse Type: Care Mgt Progress Note Filed: 02/16/2018 10:43 AM Note Text: CARE MANAGEMENT PROGRESS NOTE SERVICE DATE: 02/16/2018 SERVICE TIME: 10:27 AM LOS: 19 days CM received call from Rubens Spence Charge Nurse Lev [phone]. Pt has Chair time Wednesday 9:30am. She is asking for confirmation of dc to make chir time. CM spoke to Dr Nesbitt. Pt has HD yesterday and will have today. POSSIBLE Dc Tomorrow for Wednesday Chair time. Hep Labs sent. CM met with Luz to review her dc plan. She c/o HD access pain and tired. She is in agreement with dc plan and can sign HD consent herself. CM confirmed with Rubens Spence Charge Nurse Lev [phone]. Chose [facility], NEED F2F, NEW DIALYSIS Rubens Spence. High Risk PCC Remi Olveran . On 3L n/c today Chronic 2.5 LO2 at home From home with dtr. Dtr will transport. SIGNATURE: Vanessa Gonzalez RN PATIENT NAME: Luz Baca DATE: February 16, 2018 TIME: 10:27 AM PAGER/CONTACT #: [phone] CBC Collected: 02/16/2018 Status: F Source: [place] 4:20 AM [facility] REPOSITORY TYPE CODE TESTS RESULT OUT OF REFERENCE UNITS RANGE LAB WBC 3.70-11.00 k/uL WBC 8.16 LAB RBC 3.90-5.20 m/uL Low RBC 3.77 LAB HGB 11.5-15.5 g/dL Low Hemoglobin 11.2 LAB HCT 36.0-46.0 % Hematocrit 36.4 LAB MCV 80.0-100.0 fL MCV 96.6 LAB MCH 26.0-34.0 pG MCH 29.7 LAB MCHC 30.5-36.0 g/dL MCHC 30.8 LAB RDWCV 11.5-15.0 % RDW-CV High 15.4 LAB PLTCT 150-400 k/uL Platelet Count 194 LAB MPV 9.0-12.7 fL MPV 9.5 Performed By: #### CBC, CMP, PHOS #### [facility] [address] [facility] [phone] COMP METABOLIC PANEL Collected: 02/16/2018 Status: F Source: [place] 4:20 AM [facility] OTHER [facility]AMPUS REPOSITORY TYPE CODE TESTS RESULT OUT OF REFERENCE UNITS RANGE LAB TP 6.3-8.0 g/dL Low Protein, Total 6.1 LAB ALB 3.9-4.9 g/dL Low Albumin 3.5 LAB CA 8.5-10.2 mg/dL Calcium, Total 8.6 LAB TBIL 0.2-1.3 mg/dL Bilirubin, Total 0.4 LAB ALKP 32-117 U/L Alkaline Phosphatase 86 LAB AST 13-35 U/L AST 15 LAB GLU 74-99 mg/dL Glucose High 171 Result Comment: The [place] Diabetes Association (ADA) provides guidance for cutoff values for fasting glucose and random glucose. The ADA defines fasting as no caloric intake for at least 8 hours. Fas ting plasma glucose results between 100 to 125 mg/dL indicate increased risk for diabetes (prediabetes). Fasting plasma glucose results greater than or equal to 126 mg/dL meet the criteria for diagnosis of diabetes. In the absence of unequivocal hyperglycemia, results should be confirmed by repeat testing. In a patient with classic symptoms of hyperglycemia or hyperglycemic crisis, random plasma glucose results greater than or equal to 200 mg/dL meet the criteria for diagnosis of diabetes. Reference: Standards of Medical Care in Diabetes 2016, [place] [employer]. Diabetes Care. 2016.39(Suppl 1). LAB BUN 7-21 mg/dL BUN High 102 LAB CRET 0.58-0.96 mg/dL Creatinine High 3.20 LAB NA 136-144 mmol/L Low Sodium 134 LAB K 3.7-5.1 mmol/L Potassium 5.1 LAB CL 97-105 mmol/L Low Chloride 94 LAB CO2 22-30 mmol/L CO2 30 LAB AGAP 9-18 mmol/L Anion Gap 10 LAB ALT 7-38 U/L ALT 15 LAB GFRAA eGFR- Amer. 17 LAB GFRNAA . eGFR-All Other Races 14 Result Comment: eGFR (Estimated GFR) Units of measure: mL/min/1.73 meters squared eGFR is derived from the reexpressed MDRD Study equation using the following parameters: serum creatinine, age, gender and race. The creatinine assay has been calibrated to be traceable to IDMS. An eGFR <60 mL/min/1.73m2 for >3 months is consistent with chronic kidney disease. Refer to KDOQI guidelines for clinical interpretation. In patients with unstable renal function, e.g. those with acute kidney injury, the eGFR may not accurately reflect actual GFR. Performed By: #### CBC, CMP, PHOS #### [facility] [address] [facility] [phone] PHOSPHORUS Collected: 02/16/2018 Status: F Source: [place] 4:20 AM [facility] OTHER [facility] REPOSITORY TYPE CODE TESTS RESULT OUT OF REFERENCE UNITS RANGE LAB PHOS 2.7-4.8 mg/dL High Phosphorus 5.2 Performed By: #### CBC, CMP, PHOS #### [facility] [address] [facility] [phone] PROGRESS Observed: 02/15/2018 Status: COMPLETED Source: [place] 5:28 PM [facility] REPOSITORY HNO ID: [id number] Author: Micha Nesbitt MD Service: Hospital Medicine Author Type: Physician Type: Progress Notes Filed: 02/15/2018 5:29 PM Note Text: SERVICE DATE: 02/15/2018 SERVICE TIME: 5:28 PM HOSPITAL MEDICINE PROGRESS NOTE NIGHT AND WEEKEND COVERAGE: Nights: Please contact pager [phone]. 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 Onset was 5:00 this morning. It is intermittent in nature described as sharp stabbing and fluttering. It is midsternal. It lasts 5 minutes before resolving. Consultants: Dr. Asa Nair Disposition: [facility] SUBJECTIVE Interval HPI:No chest pain or shortness of breath. The patient is okay for discharge once she can have outpatient dialysis. Current timeline is for discharge on February 18. She is stable after having Vas-Cath placed and being dialyzed. OBJECTIVE Reviewed lines, drains, AND airways. Need to be continued . BP 121/67 Pulse 61 Temp 36 ?C (96.8 ?F) Resp 18 Ht 172.7 cm (5' 8) Wt 118.6 kg (261 lb 7.5 oz) SpO2 96% BMI 39.76 kg/m? GENERAL: Alert, no distress, cooperative NECK: No Jugulovenous distention - vas catheter placed on right with tunneled catheter LUNGS: Clear without respiratory distress CARDIAC: RRR - probably paced with periods of A. fib without murmur, rub, or gallop ABDOMEN: Abdomen soft, non-tender, BS normal, No masses or organomegaly EXTREMITIES: Trace edema No cords NEURO: Grossly normal cognition, motor function, and cranial nerves. DATA: Diagnostic tests reviewed for today's visit: Most recent labs Overview was reviewed. Pulse ox Most recent Xrays/CT CARE COORDINATION: No Patient Care Coordination Note on file. ASSESSMENT AND PLAN Overview, Assessment AND Plan, all Hosp Problems Active Hospital Problems as of 02/15/2018 Noted - Resolved A Acute renal failure superimposed on stage 3 chronic kidney disease ([facility]) 02/12/2018 - Present B Chronic combined systolic and diastolic CHF (congestive heart failure) ([facility]) 12/10/2017 - Present Overview Pt was just hospitalized for CHF exacerbation from 01/20/18-01/23/18. BNP 1300 improved from 2145 from last admit. Continue home meds. C Atrial fibrillation ([facility]) 09/23/2010 - Present Overview On eliquis. S/p pacemaker. Monitor on tele. D Pacemaker Unknown - Present Overview Had recent device interrogation 12/2017. E CAD (coronary artery disease) Unknown - Present Overview CABGx2 (DEBORAH-LAD, SVG-PDA ) in 2003 H Uncontrolled type 2 diabetes mellitus with stage 3 chronic kidney disease, with long-term current use of insulin ([facility]) 09/23/2004 - Present I Sleep apnea Unknown - Present Overview Wears CPAP at home, continue. J Hyponatremia 01/20/2018 - Present L Hypertension Unknown - Present Overview Stable, continue home meds. M Obesity 2010 - Present Medication and Non-Pharmacologic VTE Prophylaxis/Anticoagulants 01/27/182129 vte non-pharmacologic prophylaxis - none indicated 01/27/182129 vte current anticoag therapy VTE Prophylaxis: VTE prophylaxis appropriate Plan of care discussed with: Patient and RN SIGNATURE: Micha Nesbitt MD PATIENT NAME: Luz Baca DATE: February 15, 2018 TIME: 5:28 PM PAGER/CONTACT #: NURSING PROG Observed: 02/15/2018 Status: COMPLETED Source: [place] 3:22 PM [facility] REPOSITORY HNO ID: [id number] Author: Yi OsheaRn) ALLYSON Taylor Service: Dialysis Author Type: Registered Nurse Type: Nursing Progress Note Filed: 02/15/2018 3:24 PM Note Text: HD X 2 HRS ON A 2K BATH UF -600ML TOLERATED 1ST TREATMENT WELL. HEPATITIS LABS ORDERED. RIJ CATH WITH GOOD FLOWS. DSG DRY AND INTACT. VITALS STABLE THROUGHOUT TREATMENT. NURSING PROG Observed: 02/15/2018 Status: COMPLETED Source: [place] 1:13 PM [facility] REPOSITORY HNO ID: [id number] Author: Reanna OsheaRn) ALLYSON Davalos Service: Nursing Author Type: Registered Nurse Type: Nursing Progress Note Filed: 02/15/2018 1:36 PM Note Text: Nursing Progress Note Patient Name: Luz Baca Patient Location: [place] [id number] Daily Note: Pt AANDO x 3, daughter at bedside. Pt c/o pain and norco given. Lungs clear to auscultation, O2 at 2.5 L/Min NC. Pt with weeping in BLE, abdomen, and bilateral upper extremities swollen with edema. Pt's blood glucose 63, orange juice with no pulp given and rechecked at 83. PHysician notified and D5 hung and infusing at 75 ml/hr. Pt took scheduled meds. 1030 Dressing change to BLE. Legs weeping and ABDs and kerlex used to absorb fluid. 1115 Pt take to surgery and report called to PACU. 1315 Pt to dialysis. Pt AANDO x 3. Pt's daughter taken down to room to see pt. This note was completed by: Reanna Davalos RN NURSING PROG Observed: 02/15/2018 Status: COMPLETED Source: [place] 12:49 PM [facility] [place] REPOSITORY HNO ID: [id number] Author: Nahomi (Rn) ALLYSON Palomo Service: (none) Author Type: Registered Nurse Type: Nursing Progress Note Filed: 02/15/2018 12:51 PM Note Text: Nursing Progress Note Patient Name: Luz Baca Patient Location: [id number] Report to ALLYSON Richmond in dialysis. Aware pt will go to dialysis after 1300 if stable. This note was completed by: Nahomi Palomo RN XR CHEST 1V FRONTAL Observed: 02/15/2018 Status: F Source: [facility] 12:35 PM [facility] REPOSITORY * * *Final Report* * * DATE OF EXAM: Feb 15 2018 12:35PM MDX [id number] - XR CHEST 1V FRONTAL PORT / PROCEDURE REASON: ESRD (end stage renal disease) ([facility]) * * * * Physician Interpretation * * * * EXAMINATION: CHEST RADIOGRAPH (PORTABLE SINGLE VIEW AP) Exam Date/Time: 02/15/2018 12:35 PM Indication: ESRD (end stage renal disease) ([facility]) MQ: XCPMC_5 Comparison: 02/07/2018 RESULT: See impression. IMPRESSION: Lines, tubes, and devices: Indwelling pacemaker and median sternotomy wires, and surgical clips again seen. Now in place is a dual-lumen central catheter extending into the region of the distal superior vena cava. Lungs and pleura: The patient is rotated to the left. There is hazy interstitial prominence and edema is considered. Superimposed atelectasis/pneumonia not excluded. Cardiomediastinal silhouette: Stable cardiomegaly Other: . Service Delivery Supervisor: SALINAS Transcribe Date/Time: Feb 15 2018 12:40P Dictated by : GALINDO BECKER MD This examination was interpreted and the report reviewed and electronically signed by: GALINDO BECKER MD on Feb 15 2018 12:41PM EST [id number] NURSING PROG Observed: 02/15/2018 Status: COMPLETED Source: [place] 12:34 PM [facility] REPOSITORY HNO ID: [id number] Author: Nahomi OsheaRn) ALLYSON Palomo Service: (none) Author Type: Registered Nurse Type: Nursing Progress Note Filed: 02/15/2018 12:35 PM Note Text: Nursing Progress Note Patient Name: Luz Baca Patient Location: [place] [id number] Report from ALLYSON Arteaga. Pt stable at this time. Care assumed. This note was completed by: Nahomi Palomo RN BRIEF OP NOT Observed: 02/15/2018 Status: COMPLETED Source: [place] 12:17 PM [facility] REPOSITORY HNO ID: [id number] Author: Michael Hogan Service: Vascular Surgery Author Type: Physician Type: Brief Op Note Filed: 02/15/2018 12:18 PM Note Text: BRIEF OP NOTE LOG ID: [id number] Surgery/Procedure Date: 02/15/2018 Incision/Procedure Start Time: 11:39 AM Incision Close/Procedure End Time: Surgeon(s)/Proceduralist(s) and Transport Driver(s): Surgeon(s) and Role: * Michael Hogan Primary Procedure(s): Placement of 19cm Bard GlidePath tunneled dialysis catheter Anesthesia: Procedural Sedation Findings: Patent right internal jugular vein Estimated Blood Loss: minimal Specimens: None Complications: None Pre-Op/Pre-Procedure Diagnosis:Acute kidney injury, need for dialysis access Post-Op/Post-Procedure Diagnosis:same SIGNATURE: Michael Hogan DO PATIENT NAME: Luz Baca DATE: February 15, 2018 TIME: 12:17 PM PAGER/CONTACT #: [phone] CASE MANAGEM Observed: 02/15/2018 Status: COMPLETED Source: [place] 11:06 AM [facility] REPOSITORY HNO ID: [id number] Author: Vanessa OsheaRn) ALLYSON Gonzalez Service: Case Management Author Type: Registered Nurse Type: Care Mgt Progress Note Filed: 02/15/2018 11:10 AM Note Text: CARE MANAGEMENT PROGRESS NOTE SERVICE DATE: 02/15/2018 SERVICE TIME: 11:06 AM LOS: 18 days EMR reviewed. NEW DIALYSIS . Chose [facility], NEED F2F. Labs are Still in process Need Hep Panel Lab. Need Tunnel Cath, Need First Treatment. Referral sent as Ordered Rubens Spence, waiting on confirmation letter , with plan for a Wednesday dc . High Risk PCC Remi Rehn. On 3L n/c today Chronic 2.5 LO2 at home From home with dtr. Dtr will transport. SIGNATURE: Vanessa Gonzalez RN PATIENT NAME: Luz Baca DATE: February 15, 2018 TIME: 11:06 AM PAGER/CONTACT #: [phone] HEP B CORE AB,TOTAL Collected: 02/15/2018 Status: F Source: [place] 8:25 AM [facility] OTHER [facility] REPOSITORY TYPE CODE TESTS RESULT OUT OF REFERENCE UNITS RANGE LAB AHBCOT Negative Hep B Negative Core Ab,Total Performed By: #### AHBCOT, HBSAG, AHBSQ #### [facility] [place] [address] [place] [address] HEPATITIS B SURF. AG Collected: 02/15/2018 Status: F Source: [place] 8:25 AM [facility] OTHER [place] REPOSITORY TYPE CODE TESTS RESULT OUT OF REFERENCE UNITS RANGE LAB HBSAG Negative Hepatitis B Negative Surf. Ag Performed By: #### AHBCOT, HBSAG, AHBSQ #### [facility] [place] [address] [place] [address] HEPB SURFACEAB,QUANT Collected: 02/15/2018 Status: F Source: [place] 8:25 AM [facility] OTHER [place] REPOSITORY TYPE CODE TESTS RESULT OUT OF REFERENCE UNITS RANGE LAB AHBSQ <8.00 mIU/mL HepB 0.00 SurfaceAb,Qu ant Result Comment: NEGATIVE Performed By: #### AHBCOT, HBSAG, AHBSQ #### [facility] [place] [address] [place] [address] CONSULT PROG Observed: 02/15/2018 Status: COMPLETED Source: [place] 7:49 AM [facility] OTHER [facility] REPOSITORY HNO ID: [id number] Author: Malena Bray Service: Nephrology Author Type: Physician Type: Consult Progress Note Filed: 02/15/2018 7:50 AM Note Text: Patient seen and examined. Feels short of breath. Has a dry cough. Is still quite weak. She is scheduled for tunneled HD catheter and initiation of HD today. Blood pressure 95/72, pulse 77, temperature 36.3 ?C (97.3 ?F), temperature source Oral, resp. rate 18, height 172.7 cm (5' 8), weight 116.3 kg (256 lb 6.4 oz), SpO2 98 %. Intake/Output Summary (Last 24 hours) at 02/15/18 0749 Last data filed at 02/14/18 2200 Gross per 24 hour Intake 620 ml Output 1 ml Net 619 ml Gen: weak Resp: diminished BS with poor AE CVS: no rub Abd: soft Ext: 1+ edema K 5.0, Cr 3.6 Hb 11.5 Urine Na < 10, Up/c 0.1 Vit D 15, PTH 198 Renal US no obstruction Impression: 1. ROMÁN on CKD 3 due to diuresis of right > left CHF -poor renal perfusion suggested by low urine Na -Cr has worsened with each diuretic attempt but she remains volume overloaded and with hyperkalemia 2. Edema multifactorial from right sided CHF and gabapentin 3. Hyperkalemia due to #1 4. Underlying CKD 3 followed by my partner Dr. Martin 5. Hyperuricemia now on allopurinol ? Plan: 1. Change to oral torsemide 2. Plan for tunneled HD catheter today with initiation of HD -2hr HD today with 0.5L of UF planned -HD x 3 consecutive days in house -consent signed for HD and in chart -check Hep profile 3. Low K diet; no potassium supplementation 4. Added oral Vit D 5. Decreased gabapentin to 200mg BID due to contribution to edema 6. Started allopurinol 100mg daily 7. Outpatient dialysis placement at [facility] 3x/week under my service on discharge ? CBC Collected: 02/15/2018 Status: F Source: [place] 5:28 AM [facility] OTHER CAMPUS REPOSITORY TYPE CODE TESTS RESULT OUT OF REFERENCE UNITS RANGE LAB WBC 3.70-11.00 k/uL WBC 8.02 LAB RBC 3.90-5.20 m/uL Low RBC 3.88 LAB HGB 11.5-15.5 g/dL Hemoglobin 11.5 LAB HCT 36.0-46.0 % Hematocrit 37.0 LAB MCV 80.0-100.0 fL MCV 95.4 LAB MCH 26.0-34.0 pG MCH 29.6 LAB MCHC 30.5-36.0 g/dL MCHC 31.1 LAB RDWCV 11.5-15.0 % RDW-CV High 15.2 LAB PLTCT 150-400 k/uL Platelet Count 208 LAB MPV 9.0-12.7 fL MPV 9.6 Performed By: #### CBC, CMP #### [facility] [address] [facility] [phone] COMP METABOLIC PANEL Collected: 02/15/2018 Status: F Source: [place] 5:28 AM [facility] OTHER [facility]AMPUS REPOSITORY TYPE CODE TESTS RESULT OUT OF REFERENCE UNITS RANGE LAB TP 6.3-8.0 g/dL Protein, Total 6.6 LAB ALB 3.9-4.9 g/dL Low Albumin 3.7 LAB CA 8.5-10.2 mg/dL Calcium, Total 8.9 LAB TBIL 0.2-1.3 mg/dL Bilirubin, Total 0.4 LAB ALKP 32-117 U/L Alkaline Phosphatase 78 LAB AST 13-35 U/L AST 16 LAB GLU 74-99 mg/dL Low Glucose 58 Result Comment: The [place] [employer] (ADA) provides guidance for cutoff values for fasting glucose and random glucose. The ADA defines fasting as no caloric intake for at least 8 hours. Fas ting plasma glucose results between 100 to 125 mg/dL indicate increased risk for diabetes (prediabetes). Fasting plasma glucose results greater than or equal to 126 mg/dL meet the criteria for diagnosis of diabetes. In the absence of unequivocal hyperglycemia, results should be confirmed by repeat testing. In a patient with classic symptoms of hyperglycemia or hyperglycemic crisis, random plasma glucose results greater than or equal to 200 mg/dL meet the criteria for diagnosis of diabetes. Reference: Standards of Medical Care in Diabetes 2016, [place] [employer]. Diabetes Care. 2016.39(Suppl 1). LAB BUN 7-21 mg/dL High BUN 130 Result Comment: Rechecked LAB CRET 0.58-0.96 mg/dL High Creatinine 3.57 LAB NA 136-144 mmol/L Sodium 136 LAB K 3.7-5.1 mmol/L Potassium 5.0 LAB CL 97-105 mmol/L Chloride Low 96 LAB CO2 22-30 mmol/L CO2 28 LAB AGAP 9-18 mmol/L Anion Gap 12 LAB ALT 7-38 U/L ALT 16 LAB GFRAA eGFR- Amer. 15 LAB GFRNAA . eGFR-All Other Races 12 Result Comment: eGFR (Estimated GFR) Units of measure: mL/min/1.73 meters squared eGFR is derived from the reexpressed MDRD Study equation using the following parameters: serum creatinine, age, gender and race. The creatinine assay has been calibrated to be traceable to IDMS. An eGFR <60 mL/min/1.73m2 for >3 months is consistent with chronic kidney disease. Refer to KDOQI guidelines for clinical interpretation. In patients with unstable renal function, e.g. those with acute kidney injury, the eGFR may not accurately reflect actual GFR. Performed By: #### CBC, CMP #### [facility] [address] [facility] [phone] HEPATITIS B SURF. AG Collected: 02/15/2018 Status: F Source: [place] 5:28 [facility] OTHER CAMPUS REPOSITORY TYPE CODE TESTS RESULT OUT OF REFERENCE UNITS RANGE LAB HBSAG Negative Hepatitis B Negative Surf. Ag Performed By: #### HBSAG, AHCV, AHBSAG #### [facility] [facility] [address] [address] HEPATITIS C AB IA Collected: 02/15/2018 Status: F Source: [place] 5:28 [facility] OTHER CAMPUS REPOSITORY TYPE CODE TESTS RESULT OUT OF REFERENCE UNITS RANGE LAB AHCV Negative Hepatitis C Ab Negative IA Performed By: #### HBSAG, AHCV, AHBSAG #### [facility] [address] [address] HEPB SURFACE AB,QUAL Collected: 02/15/2018 Status: F Source: [place] 5:28 [facility] OTHER [place] REPOSITORY TYPE CODE TESTS RESULT OUT OF REFERENCE UNITS RANGE LAB AHBSAG Negative HepB Surface Negative Ab,Qual Result Comment: NEGATIVE Performed By: #### HBSAG, AHCV, AHBSAG #### [facility] [place] [address] [address] OPERATIVE NO Observed: 02/15/2018 Status: COMPLETED Source: [place] 12:00 AM [facility]IN[facility] OTHER CAMPUS REPOSITORY HNO ID: [id number] Author: Michael Hogan Service: Vascular Surgery Author Type: Physician Type: Operative Report Filed: 02/22/2018 5:31 PM Note Text: [facility]- Operative Report LUZ BACA : 1940 AGE: 77 SEX: F ACCTNUM: [id number] [facility]: [facility] LOCATION: [address] ATTENDING PHYSICIAN: Micha Nesbitt M.D. DATE OF PROCEDURE: 02/15/2018 SURGEON: Michael Hogan D.O. VMWARE ENGINEER: Shaila Tomas. ANESTHESIA: PREOPERATIVE DIAGNOSIS(ES): Acute kidney injury, fluid overload, need for dialysis access. POSTOPERATIVE DIAGNOSIS(ES): Same. NAME OF OPERATION: Placement of a Bard 19 cm GlidePath tunneled dialysis catheter. INDICATIONS: The patient is a 77-year-old female who was admitted with fluid overload and found to have acute kidney injury. She was initially treated conservatively. However, she remained short of breath, and plans were for dialysis. The risks, benefits, and alternatives were discussed with the patient and consent obtained. PROCEDURE: The patient was taken to the finishing lab technician. She was placed supine on the finishing lab technician table. A huddle was performed. Following this, the right neck and chest were prepped and draped in standard sterile fashion. She was given pain medication during the procedure. When she was comfortable, I then was able to access her right internal jugular vein via micropuncture technique, exchanged to a 4-Greenlandic micropuncture sheath and got a J-wire down into the inferior vena cava. We then serially dilated the track with a 10-Greenlandic dilator. Following this, we planned in a location for a counterincision along her chest wall. We infiltrated this with 2% lidocaine. I then made a counterincision with an 11 blade and tunneled the Bard 19 cm GlidePath catheter from the chest wall to the IJ insertion site, and under fluoroscopic guidance, I placed a peel-away sheath. We then placed a catheter within the peel-away sheath and removed it. The tip of the catheter remained in the SVC- right atrium junction. There were no kinks and twists. We were able to flush the catheter easily and then withdrew blood easily. We then placed a heparin lock. I closed the IJ site with 4-0 Biosyn and Exofin skin glue. The catheter was secured in place with 3-0 Surgipro. A sterile dressing of Surgicel, Biopatch, 4 x 4, and Tegaderm was applied. The IJ insertion site was closed with Exofin skin glue, 2 x 2, and Tegaderm. A pressure dressing of 4 x 4's and foam tape was applied. The patient tolerated the procedure well and was taken back to the postanesthesia care unit in stable condition. Michael Hogan D.O. Vascular Surgery KB:[id number] CONSULT PROG Observed: 02/14/2018 Status: COMPLETED Source: [place] 6:21 PM [facility] OTHER CAMPUS REPOSITORY HNO ID: [id number] Author: Michael Hogan Service: Vascular Surgery Author Type: Physician Type: Consult Progress Note Filed: 02/14/2018 6:22 PM Note Text: CONSULT PROGRESS NOTES PATIENT NAME: Luz Baca SERVICE DATE: 02/14/2018 SERVICE TIME: 6:21 PM CONSULTING SERVICE: Vascular Surgery ASSESSMENT AND PLAN Principal Problem (Resolved): Active Problems: Acute renal failure superimposed on stage 3 chronic kidney disease (HCC) POA: Yes Assessment AND Plan: Plan for tunneled catheter tomorrow afternoon. NPO after midnight SUBJECTIVE INTERVAL HPI: Still having SOB. MEDICATIONS: Current hospital medications: insulin glargine 30 Units injection (long acting) (LANTUS) 30 Units SUBCUTANEOUS AT BEDTIME furosemide 40 mg injection (LASIX) 40 mg INTRAVENOUS BID 9a/5p traMADol 50 mg tab(s) (ULTRAM) 50 mg ORAL q 12 H PRN HYDROcodone 5 mg - acetaminophen 325 mg tablet (NORCO) 1 tablet ORAL q 6 H PRN hydrocortisone 0.5 % cream TOPICAL BID ipratropium-albuterol 3 mL nebulizer solution (DUONEB) 3 mL INHALATION q 4 H PRN insulin lispro 12 Units injection (rapid acting) (HumaLOG) 12 Units SUBCUTANEOUS w MEALS insulin glargine 15 Units injection (long acting) (LANTUS) 15 Units SUBCUTANEOUS DAILY (8 AM) LORazepam 1 mg injection (ATIVAN) 1 mg INTRAVENOUS q 6 H PRN insulin lispro injection (rapid acting) (HumaLOG) SUBCUTANEOUS AT BEDTIME amiodarone 200 mg tab(s) (PACERONE) 200 mg ORAL DAILY melatonin 3 mg tab(s) 3 mg ORAL AT BEDTIME simvastatin 20 mg tab(s) (ZOCOR) 20 mg ORAL AT BEDTIME aluminum-magnesium hydroxide-simethicone 200-200-20 mg/5 mL 15 mL (MAALOX,MYLANTA,MAG-AL PLUS) 15 mL ORAL q 4 H PRN insulin lispro injection (rapid acting) (HumaLOG) SUBCUTANEOUS w MEALS carvedilol 3.125 mg tab(s) (COREG) 3.125 mg ORAL BID w MEALS cholecalciferol 1,000 Units tab(s) (VITAMIN D3) 1,000 Units ORAL DAILY allopurinol 100 mg tab(s) (ZYLOPRIM) 100 mg ORAL DAILY docusate sodium 100 mg cap(s) (COLACE) 100 mg ORAL BID polyethylene glycol 3350 17 g packet (MIRALAX, GLYCOLAX) 17 g ORAL DAILY bisacodyl 10 mg suppository (DULCOLAX) 10 mg RECTAL DAILY PRN sodium chloride 0.65 % 2 Parker (AYR, OCEAN) 2 Parker EACH NOSTRIL PRN gabapentin 200 mg cap(s) (NEURONTIN) 200 mg ORAL BID ondansetron orally disintegrating 4 mg tab(s) (ZOFRAN ODT) 4 mg ORAL q 6 H PRN acetaminophen 650 mg tab(s) (TYLENOL) 650 mg ORAL q [address] 40 mg tab(s) (PROTONIX) 40 mg ORAL BID bacitracin 1 application topical ointment 1 application TOPICAL BID isosorbide mononitrate ER 60 mg tab(s) (IMDUR) 60 mg ORAL DAILY 0.9% NaCl 3-5 mL 3-5 mL INTRAVENOUS q 12 H dextrose 40 % 15 g 15 g ORAL PRN glucagon 1 mg injection (GLUCAGEN) 1 mg INTRAMUSCULAR PRN dextrose 50% in water 25 mL syringe 12.5 g INTRAVENOUS PRN miconazole 2 % 1 application topical powder (LOTRIMIN AF, DESENEX) 1 application TOPICAL BID OBJECTIVE PHYSICAL EXAM: Patient Vitals for the past 24 hrs: BP Temp Temp src Pulse Resp SpO2 Weight 02/14/18 1613 120/70 36.4 ?C (97.6 ?F) Oral 79 18 98 % - 02/14/18 1132 (!) 125/40 36.3 ?C (97.4 ?F) Oral 79 20 99 % - 02/14/18 0800 - - - 81 18 - - 02/14/18 0758 118/55 36.3 ?C (97.4 ?F) - 74 16 95 % - 02/14/18 0431 - - - 75 - - 116.1 kg (256 lb) 02/14/18 0428 127/59 36.4 ?C (97.5 ?F) Axillary (!) 45 18 96 % - 02/13/18 2322 - - - 75 - - - 02/13/18 2320 114/51 36.5 ?C (97.7 ?F) Oral (!) 42 18 93 % - 02/13/18 2159 - - - 74 - - - 02/13/18 1940 136/71 36.3 ?C (97.3 ?F) Oral (!) 39 16 98 % - Body mass index is 38.92 kg/m?. GENERAL: Alert, no distress, cooperative EXTREMITIES: no significant upper extremity edema DATA: Diagnostic tests reviewed for today's visit: Most recent labs and imaging results. CBC: Recent Labs 02/14/18 0507 WBC 6.82 RBC 3.82* HB 11.3* HCT 36.3 PLT 203 MCV 95.0 MCH 29.6 MPV 9.4 Coags: No results for input(s): INR, APTT in the last 24 hours. Invalid input(s): PT BMP: Recent Labs 02/14/18 0507 NA 137 K 5.2* CHLOR 96* CO2 27 BUN 128* CREAT 3.35* GLUC 103* SIGNATURE: Michael Hogan DO DATE: February 14, 2018 TIME: 6:21 PM THERAPY NT Observed: 02/14/2018 Status: COMPLETED Source: [place] 4:17 PM CLINIC OTHER CAMPUS REPOSITORY HNO ID: [id number] Author: Ana Luisa (S/Ot) Nasim, Student Service: Occupational Therapy Author Type: Student Type: Therapy (PT/OT/Speech/Resp) Filed: 02/14/2018 4:34 PM Note Text: Attestation signed by Shakila Busch (Ot/L) at 02/15/2018 12:05 PM I reviewed and agree with the documentation corresponding to this therapy visit. I attest that I was readily available for questions and concerns. Occupational Therapy Treatment SERVICE DATE: 02/14/2018 SERVICE TIME: 1557 to 1608 ROOM: [address] [address] Recommended Discharge Disposition: Home OT Recommended Discharge Disposition Comments: to improve overall strength, endurance, provide education on ECWS, and ensure safety with ADLs and ADL transfers Anticipated Discharge Needs: Physical Assist at Home;Supervision at Home Physical Assist at Home for: Transfers;Ambulation;Cleaning;Laundry;Meals;Medication Management;Stairs;Self Care;Shopping;Transportation;Wheelchair Mobility Supervision at Home due to: (safety) Recommended Discharge Equipment: Shower Chair OT Recommendations to Nursing: ADL?s in chair;To Bathroom for ADL?s /and or Toileting;OOB for meals;With assist of 1 person OT 6 Clicks Score: 20 Precautions/Activity Restrictions: Cardiac;Fall Risk;Lines/Tubes/Drains Isolation Type: None ASSESSMENT: Pt presents with decreased activity tolerance and functional mobility. Pt willing to participate in OT session this date. Pt requires SBA for bed mobility however reports feeling SOB while seated EOB. Vitals monitored throughout session to ensure safe progression during functional mobility. Pt participated in BUE exercises while seated EOB requiring minimal verbal cues for proper technique and minimal rest breaks due to fatigue. Daughter present throughout session and appears supportive. Pt would continue to benefit from home OT post acute stay to increase independence with ADL/IADL task and functional mobility. Patient Disposition at Start of Session: Supine in Bed Patient Disposition at End of Session: (seated EOB with PCNA, family present) Lines/tubes/drains: intact. O2, peripheral IV. RN, PCNA notified of patient status. Tolerance Limited By Fatigue Occupational Therapy Problem List: Impaired Self Care;Decreased Activity Tolerance;Safety Deficits;Pain;Functional Mobility Impairment Patient /Caregiver Goals: Go Home Goals for Plan of Care: Able to perform HEP with: Modified Independent Grooming with: Supervision Upper Body Dressing with: Set Up Chair Transfer with: Stand By Assistance Toilet Transfer with: Stand By Assistance Tolerate (minutes of functional activity): 10 Functional Activity with: Stand By Assistance Home Management Skills with: Stand By Assistance Demonstrate Competence With Education with: Verbal Cues Only Progress Toward Goals: Progressing slower than expected Due To: fatigue Rehab Potential: Good PLAN: Treatment Frequency (times per week): 3 Current admission Treatment Interventions: Education;Self Care / Home Management;Energy Conservation Training;Strengthening;Functional Mobility Training Plan of Care developed with: Patient TREATMENT INTERVENTIONS: Therapy Diagnosis: Decreased activities of daily living (ADL);Muscle Weakness (generalized);Unsteadiness on feet;General symptoms and signs-other;Signs and Symptoms Involving Cognitive Functions and Awareness Interventions Provided: Therapeutic Exercise (87907);Therapeutic Activity (83205) Therapeutic Exercise (83999) Treatment Minutes: 9 1 unit Skilled Intervention(s): Instructed, verbally cued pt in importance of participating in active upper extremity exercises alternating UE's focusing on shoulder ab/adduction, IR/ER, biceps/tripeps, shoulder flex/ext, elbow flex/ext x10 reps x 1 set (additional time required for pt to take rest breaks). Instructed, verbally cued pt in correct body positioning for optimal stretch. Instructed, verbally cued pt to maintain steady slow pace through exercises. All exercises were demonstrated by therapist for safe technique. Therapeutic Activity (10257) Treatment Minutes: 2 0 units Skilled Intervention(s): Instructed, verbally cued pt in supine to sit technique with proper use of UE's to sit up. Instructed, verbally cued pt in effective use of BUE's to scoot to EOB. Instructed, verbally cued pt in proper hand placement to maintain sitting balance during UE exercises. Total Timed Code Treatment Minutes: 11 Total Treatment Time (minutes): 11 FUNCTIONAL G CODE: OT 6 Clicks Score: 20 (02/14/18 1557) Self Care Current Status (G8987): CJ (02/10/18 1140) Self Care Goal Status (G8988): CJ (02/10/18 1140) Based on clinical assessment and the score on the 6 Clicks Functional Assessment Tool, the G code and corresponding severity modifiers are documented above. SUBJECTIVE: Current Hospital Course: Chart reviewed and no significant medical updates relevant to therapy were noted Reason for Occupational Therapy Consult: Pt presenting with chest pain; OT consult: Safety assessment Relevant Past Medical History: Afib, CAD, CKD, COPD, DM, depression, HOCM, HTN, HLD Patient Report: It hurts to lay on my back. Home Environment Patient Lives With: Family (daughter) Assistance Available: 24 Hour Entry To Home: Stairs;Without Rail Number Of Stairs Into Home: 2 Number Of Stairs To Bed/Bath: 1st floor set up Tub/Shower Type: Tub shower combination Laundry: Daughter completes Equipment Owned: Commode-Bedside;Grab Bars-Shower;Cane;Wheeled Walker;Hospital Bed;Home Oxygen Prior Functional Level: Required Assistance Assistance Required With: Transportation;Shopping;Self Care;Safety;Meals;Laundry;Cleaning Prior Functional Level Comments: Requires assist PRN for ADLs, dtr completes IADLs, ambulates with wheeled walker, on 2-3 L of Home O2 OBJECTIVE: Responsiveness: Alert;Awake Follows Commands: 3-step Commands;Cueing Needed Cueing to Follow Commands: Minimum Executive Function Deficits: Safety Awareness Safety Awareness Deficit: Minimal impairment Vision Deficits: Wears glasses Short Blessed Final Score: 11 CURRENT FUNCTIONAL STATUS: Current Activities of Daily Living Assist Level Feeding Set Up (per clinical judgment) Grooming Contact Guard Assistance (hand hygiene at sink) Not performed this date Bathing Upper Body Contact Guard Assistance Not performed this date Bathing Lower Body Contact Guard Assistance Not performed this date Dressing Upper Body Contact Guard Assistance Not performed this date Dressing Lower Body Supervision (slip on slippers) Not performed this date Toileting Functional Mobility Assist Level Rolling Supine to Sit Stand By Assistance (HOB flat, use of bedrails) Sit to Supine Scooting Stand By Assistance (to EOB) Sit to Stand Contact Guard Assistance Not performed this date Stand to Sit Contact Guard Assistance Not performed this date Bed to Chair Contact Guard Assistance Stand Pivot Not performed this date Toilet/Commode Functional Mobility Contact Guard Assistance Wheeled Walker Not performed this date Vital Signs Intra Assessment 1: SpO2 Intra 1, Oxygen Equipment Intra 1 Intra SpO2 1: 100 Intra O2 Equipment 1: Nasal Cannula Intra Oxygen Requirement 1: 2.5 Balance: Static Sitting;Dynamic Sitting;Static Standing;Dynamic Standing Static Sitting Balance: Supervision Dynamic Sitting Balance: Stand By Assistance Static Standing Balance: Stand By Assistance Dynamic Standing Balance: Contact Guard Assistance Please see discipline specific clinical documentation flowsheet for complete details for this therapy evaluation/treatment. SIGNATURE: Ana Luisa Rouse S/OT PATIENT NAME: Luz Baca DATE: February 14, 2018 TIME: 4:17 PM PAGER: [phone] PROGRESS Observed: 02/14/2018 Status: COMPLETED Source: [place] 3:22 PM CLINIC OTHER CAMPUS REPOSITORY HNO ID: [id number] Author: Micha Nesbitt MD Service: Hospital Medicine Author Type: Physician Type: Progress Notes Filed: 02/14/2018 3:23 PM Note Text: SERVICE DATE: 02/14/2018 SERVICE TIME: 3:22 PM HOSPITAL MEDICINE PROGRESS NOTE NIGHT AND WEEKEND COVERAGE: Nights: Please contact pager [phone]. 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 Onset was 5:00 this morning. It is intermittent in nature described as sharp stabbing and fluttering. It is midsternal. It lasts 5 minutes before resolving. Consultants: Dr. Asa Nair Disposition: [facility] SUBJECTIVE Interval HPI:No chest pain or shortness of breath. The patient is okay for discharge once she can have outpatient dialysis. Current timeline is for discharge on February 18. OBJECTIVE Reviewed lines, drains, AND airways. Need to be continued . BP (!) 125/40 Pulse 79 Temp 36.3 ?C (97.4 ?F) (Oral) Resp 20 Ht 172.7 cm (5' 8) Wt 116.1 kg (256 lb) SpO2 99% BMI 38.92 kg/m? GENERAL: Alert, no distress, cooperative NECK: No Jugulovenous distention LUNGS: Clear without respiratory distress CARDIAC: RRR - probably paced with periods of A. fib without murmur, rub, or gallop ABDOMEN: Abdomen soft, non-tender, BS normal, No masses or organomegaly EXTREMITIES: 1+ edema No cords NEURO: Grossly normal cognition, motor function, and cranial nerves. DATA: Diagnostic tests reviewed for today's visit: Most recent labs Overview was reviewed. Pulse ox Most recent Xrays/CT Core Driller Helper CARE COORDINATION: No Patient Care Coordination Note on file. ASSESSMENT AND PLAN Assessment AND Plan, [facility] Problems Problem List as of 02/14/2018 Noted - Resolved A Acute renal failure superimposed on stage 3 chronic kidney disease ([facility]) 02/12/2018 - Present B Chronic combined systolic and diastolic CHF (congestive heart failure) ([facility]) 12/10/2017 - Present C Atrial fibrillation ([facility]) 09/23/2010 - Present D Pacemaker Unknown - Present E CAD (coronary artery disease) Unknown - Present F COPD (chronic obstructive pulmonary disease) ([facility]) Unknown - Present H Uncontrolled type 2 diabetes mellitus with stage 3 chronic kidney disease, with long-term current use of insulin ([facility]) 09/23/2004 - Present I Sleep apnea Unknown - Present J Hyponatremia 01/20/2018 - Present K GERD (gastroesophageal reflux disease) Unknown - Present L Hypertension Unknown - Present M Obesity 2010 - Present Unprioritized Arthritis Unknown - Present Depression Unknown - Present Gout Unknown - Present Hyperlipidemia Unknown - Present Pulmonary hypertension 01/07/2018 - Present Medication and Non-Pharmacologic VTE Prophylaxis/Anticoagulants 01/27/182129 vte non-pharmacologic prophylaxis - none indicated 01/27/182129 vte current anticoag therapy VTE Prophylaxis: VTE prophylaxis appropriate Plan of care discussed with: Patient, Case Mangement and RN SIGNATURE: Micha Nesbitt MD PATIENT NAME: Luz Baca DATE: February 14, 2018 TIME: 3:22 PM PAGER/CONTACT #: [phone] Observed: 02/14/2018 Status: COMPLETED Source: [place] 12:31 PM CLINIC OTHER CAMPUS REPOSITORY HNO ID: [id number] Author: Megan Gomez) Ciel[place] Service: Nutrition Therapy Author Type: Registered Dietitian Type: Nutrition Filed: 02/14/2018 12:34 PM Note Text: NUTRITION THERAPY PROGRESS NOTE SERVICE DATE: 02/14/2018 SERVICE TIME: 1120 NUTRITION CARE PLAN Intervention: 1. Discontinue nutrition supplements-patient dislikes and limits her fluids at meals currently 2. Continue heart healthy 4gm, 2gm potassium and 1800 ml fluid restriction 3. Provide and encourage nutrient/caloric dense foods to help meet estimated needs. 4. Reviewed current labs and physician progress notes Will follow up again within 6 days or as consulted Monitor and Evaluation: Goal: Meet >75% of estimated needs Discharge Nutrition Recommendations: Diet: Continue heart healthy 4gm, 2gm potassium and 1800 ml fluid restriction Interval History: PO intake 75-100%. Not drinking supplements and limiting her fluids d/t current fluid restrictions. PO intake is currently adequate to meet estimated needs Admission Weight: 105.2 kg (232 lb) Current Weight: 116.1 kg (256 lb) Body mass index is 38.92 kg/m?. class 2 obesity Intake/Output 02/10/18 0700 - 02/11/18 0659 02/11/18 0700 - 02/12/18 0659 02/12/18 0700 - 02/13/18 0659 02/13/18 07 - 02/14/18 0659 02/14/18 0700 - 02/15/18 0659 Intake (ml) 840 342 120 940 210 Output (ml) 333 040 4421 1000 0 Net (ml) 239 -333 -1280 -60 210 MNT Billing Type: Re-assess/15 min 1 unit SIGNATURE: Megan Buck RD PATIENT NAME: Lzu Baca DATE: February 14, 2018 TIME: 12:31 PM CONSULT PROG Observed: 02/14/2018 Status: COMPLETED Source: [place] 10:05 AM [facility] OTHER [place] REPOSITORY HNO ID: [id number] Author: Krishan Irwin Rai Service: Pulmonary Disease Author Type: Physician Type: Consult Progress Note Filed: 02/14/2018 4:44 PM Note Text: [facility] IN-PATIENT CONSULT PROGRESS NOTE SERVICE DATE: 02/14/2018 ASSESSMENT: Acute on Chronic hypoxemic hypercarbic?respiratory failure 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 Noted plans for hemodialysis catheter placement Noted plans for IHD per renal team DVT prophylaxis Plan discussed in detail with patient and RN. Patient verbalizes understanding and is in agreement with the current management plan. Total time spent in patient care includes but is not limited to patient/ family discussions, collaborative discussions with other healthcare providers, review of medical records, review of laboratory tests, radiology images/ results, microbiology and pathology data. Krishan Irwin Rai, MD Staff, Respiratory [place] [facility] Pager #[phone] SUBJECTIVE CHIEF COMPLAINT: Dyspnea INTERVAL HPI:Luz Baca is a 77 year old female status since previous days visit is feeling the same. She did not use her CPAP overnight. Waiting for placement of hemodialysis catheter. No fevers, chills, night sweats, chest pain, SOB, abd pain or leg swelling MEDICATIONS: Current Facility-Administered Medications: furosemide 40 mg injection (LASIX) 40 mg INTRAVENOUS BID 9a/5p traMADol 50 mg tab(s) (ULTRAM) 50 mg ORAL q 12 H PRN HYDROcodone 5 mg - acetaminophen 325 mg tablet (NORCO) 1 tablet ORAL q 6 H PRN hydrocortisone 0.5 % cream TOPICAL BID ipratropium-albuterol 3 mL nebulizer solution (DUONEB) 3 mL INHALATION q 4 H PRN insulin lispro 12 Units injection (rapid acting) (HumaLOG) 12 Units SUBCUTANEOUS w MEALS insulin glargine 15 Units injection (long acting) (LANTUS) 15 Units SUBCUTANEOUS DAILY (8 AM) insulin glargine 33 Units injection (long acting) (LANTUS) 33 Units SUBCUTANEOUS AT BEDTIME LORazepam 1 mg injection (ATIVAN) 1 mg INTRAVENOUS q 6 H PRN insulin lispro injection (rapid acting) (HumaLOG) SUBCUTANEOUS AT BEDTIME amiodarone 200 mg tab(s) (PACERONE) 200 mg ORAL DAILY melatonin 3 mg tab(s) 3 mg ORAL AT BEDTIME simvastatin 20 mg tab(s) (ZOCOR) 20 mg ORAL AT BEDTIME aluminum-magnesium hydroxide-simethicone 200-200-20 mg/5 mL 15 mL (MAALOX,MYLANTA,MAG-AL PLUS) 15 mL ORAL q 4 H PRN insulin lispro injection (rapid acting) (HumaLOG) SUBCUTANEOUS w MEALS carvedilol 3.125 mg tab(s) (COREG) 3.125 mg ORAL BID w MEALS cholecalciferol 1,000 Units tab(s) (VITAMIN D3) 1,000 Units ORAL DAILY allopurinol 100 mg tab(s) (ZYLOPRIM) 100 mg ORAL DAILY docusate sodium 100 mg cap(s) (COLACE) 100 mg ORAL BID polyethylene glycol 3350 17 g packet (MIRALAX, GLYCOLAX) 17 g ORAL DAILY bisacodyl 10 mg suppository (DULCOLAX) 10 mg RECTAL DAILY PRN sodium chloride 0.65 % 2 Parker (AYR, OCEAN) 2 Parker EACH NOSTRIL PRN gabapentin 200 mg cap(s) (NEURONTIN) 200 mg ORAL BID ondansetron orally disintegrating 4 mg tab(s) (ZOFRAN ODT) 4 mg ORAL q 6 H PRN acetaminophen 650 mg tab(s) (TYLENOL) 650 mg ORAL q [address] 40 mg tab(s) (PROTONIX) 40 mg ORAL BID bacitracin 1 application topical ointment 1 application TOPICAL BID isosorbide mononitrate ER 60 mg tab(s) (IMDUR) 60 mg ORAL DAILY 0.9% NaCl 3-5 mL 3-5 mL INTRAVENOUS q 12 H dextrose 40 % 15 g 15 g ORAL PRN Or glucagon 1 mg injection (GLUCAGEN) 1 mg INTRAMUSCULAR PRN Or dextrose 50% in water 25 mL syringe 12.5 g INTRAVENOUS PRN miconazole 2 % 1 application topical powder (LOTRIMIN AF, DESENEX) 1 application TOPICAL BID CURRENT ALLERGIES: ALLERGIES Allergen Reactions - Aspirin Other: See Comments Patient states that she bled out every orifice, sts not allowed to take it at all. Patient states she was bleeding out of nose and mouth after one dose. - Bactrim [Sulfametho* Other: See Comments My throat swells up. - Latex Rash, Itching Itching and welts. No wheezing or shortness of breath. - Penicillins Rash, Itching Tolerated ceftriaxone during 11/2017 admission and cefepime during 12/2017 admission - Tetracycline Rash, GI Upset Emesis and diarrhea. - Atorvastatin Rash - Codeine Other: See Comments Numbness - Dilaudid [Hydromorp* Mental Status Change - Meperidine - Pentazocine - Pioglitazone Unknown - Propoxyphene Patient Vitals for the past 24 hrs: BP Temp Temp src Pulse Resp SpO2 Weight 02/14/18 0800 - - - 81 18 - - 02/14/18 0758 118/55 36.3 ?C (97.4 ?F) - 74 16 95 % - 02/14/18 0431 - - - 75 - - 116.1 kg (256 lb) 02/14/18 0428 127/59 36.4 ?C (97.5 ?F) Axillary (!) 45 18 96 % - 02/13/18 2322 - - - 75 - - - 02/13/18 2320 114/51 36.5 ?C (97.7 ?F) Oral (!) 42 18 93 % - 02/13/18 2159 - - - 74 - - - 02/13/18 1940 136/71 36.3 ?C (97.3 ?F) Oral (!) 39 16 98 % - 02/13/18 1203 - - - 77 - - - 02/13/18 1147 106/54 36.5 ?C (97.7 ?F) Oral (!) 42 18 98 % - Intake/Output Summary (Last 24 hours) at 02/14/18 1005 Last data filed at 02/14/18 0758 Gross per 24 hour Intake 910 ml Output 800 ml Net 110 ml OBJECTIVE PHYSICAL EXAM: BP 118/55 Pulse 81 Temp (Src) 97.4 (Axillary) Resp 18 Ht 5' 8 (1.73m) Wt 256 lb (116.1kg) SpO2 95% BMI 38.93 kg/(m2). General appearance: Morbidly obese, well appearing, alert, in no acute distress Respiratory: lungs clear to auscultation, no wheezing or rhonchi Cardiovascular: RRR Abdomen: Soft, non tender, non distended. Extremities: Normal pulses. (++) peripheral edema. DATA Diagnostic tests reviewed for today's visit, films/specimens were personally reviewed by me: Most recent labs and imaging results. CBC, Coags, BMP, Mg, Phos Recent Labs 02/14/18 0507 02/13/18 0621 02/12/18 0016 WBC 6.82 7.58 7.76 HB 11.3* 11.4* 11.2* HCT 36.3 36.6 35.1* PLT 203 205 216 NA 137 135* 127* K 5.2* 5.1 5.6* CHLOR 96* 94* 89* CO2 27 26 23 BUN 128* 125* 114* CREAT 3.35* 3.30* 3.41* GLUC 103* 89 125* CA 8.8 8.9 8.4* MG -- -- 2.8* Liver Function, Amylase, AND Lipase Recent Labs 02/14/18 0507 02/13/18 0621 02/12/18 0016 TPROT 6.2* 6.8 6.9 ALB 3.8* 3.8* 3.6* ALT 16 16 17 AST 14 14 15 ALKPHOS 77 82 88 TBILI 0.4 0.4 0.3 Cardiac Enzymes ABGs SIGNATURE: Krishan Irwin Rai, MD PATIENT NAME: Luz Baca DATE: February 14, 2018 TIME: 10:05 AM PAGER/CONTACT #: [phone] CASE MANAGEM Observed: 02/14/2018 Status: COMPLETED Source: [place] 8:42 AM [facility] OTHER CAMPUS REPOSITORY HNO ID: [id number] Author: Vanessa Loomis (Rn) ALLYSON Gonzalez Service: Case Management Author Type: Registered Nurse Type: Care Mgt Progress Note Filed: 02/14/2018 8:46 AM Note Text: CARE MANAGEMENT PROGRESS NOTE SERVICE DATE: 02/14/2018 SERVICE TIME: 8:42 AM LOS: 17 days EMR reviewed. Spoke to Raymond gonzáles [phone] about this patient. Need Hep Panel Lab, Need Tunnel Cath, Need First Treatment. Referral sent as Ordered Rubens Spence , with plan for a Wednesday dc . SIGNATURE: Vanessa Gonzalez RN PATIENT NAME: Luz Baca DATE: February 14, 2018 TIME: 8:42 AM PAGER/CONTACT #: [phone] CONSULT PROG Observed: 02/14/2018 Status: COMPLETED Source: [place] 7:30 AM [facility] OTHER CAMPUS REPOSITORY HNO ID: [id number] Author: Malena Bray Service: Nephrology Author Type: Physician Type: Consult Progress Note Filed: 02/14/2018 7:33 AM Note Text: Patient seen and examined. Made about 1L of urine with BID lasix. Feels about the same. Still with SOB. No fevers or chills. She signed consent for dialysis this AM - scheduled for tunneled catheter tomorrow with Dr. Hogan Blood pressure 127/59, pulse 75, temperature 36.4 ?C (97.5 ?F), temperature source Axillary, resp. rate 18, height 172.7 cm (5' 8), weight 116.1 kg (256 lb), SpO2 96 %. Intake/Output Summary (Last 24 hours) at 02/14/18 0730 Last data filed at 02/14/18 0120 Gross per 24 hour Intake 940 ml Output 1000 ml Net -60 ml Gen: weak Resp: diminished BS with poor AE CVS: no rub Abd: soft Ext:1+ edema K 5.2, Cr 3.3 Hb 11.3 Urine Na < 10, Up/c 0.1 Vit D 15, PTH 198 Renal US no obstruction Impression: 1. ROMÁN on CKD 3 due to diuresis of right > left CHF -poor renal perfusion suggested by low urine Na -Cr has worsened with each diuretic attempt but she remains volume overloaded and with hyperkalemia -Cr stable today but overall still feeling poorly 2. Edema multifactorial from right sided CHF and gabapentin 3. Hyperkalemia due to #1 4. Underlying CKD 3 followed by my partner Dr. Martin 5. Hyperuricemia now on allopurinol ? Plan: 1. Lasix 40mg IV BID for now 2. Plan for tunneled HD catheter tomorrow with initiation of HD -2hr HD tomorrow with 0.5L of UF planned -consent signed for HD and in chart -check Hep profile 3. Low K diet; no potassium supplementation 4. Added oral Vit D 5. Decreased gabapentin to 200mg BID due to contribution to edema 6. Started allopurinol 100mg daily 7. Outpatient dialysis placement at [facility] 3x/week under my service on discharge ? CBC Collected: 02/14/2018 Status: F Source: [place] 5:07 AM [facility] OTHER CAMPUS REPOSITORY TYPE CODE TESTS RESULT OUT OF REFERENCE UNITS RANGE LAB WBC 3.70-11.00 k/uL WBC 6.82 LAB RBC 3.90-5.20 m/uL Low RBC 3.82 LAB HGB 11.5-15.5 g/dL Low Hemoglobin 11.3 LAB HCT 36.0-46.0 % Hematocrit 36.3 LAB MCV 80.0-100.0 fL MCV 95.0 LAB MCH 26.0-34.0 pG MCH 29.6 LAB MCHC 30.5-36.0 g/dL MCHC 31.1 LAB RDWCV 11.5-15.0 % RDW-CV High 15.1 LAB PLTCT 150-400 k/uL Platelet Count 203 LAB MPV 9.0-12.7 fL MPV 9.4 Performed By: #### CBC, CMP #### [facility] [address] [facility] [phone] COMP METABOLIC PANEL Collected: 02/14/2018 Status: F Source: [place] 5:07 AM [facility]IN[facility] OTHER CAMPUS REPOSITORY TYPE CODE TESTS RESULT OUT OF REFERENCE UNITS RANGE LAB TP 6.3-8.0 g/dL Low Protein, Total 6.2 LAB ALB 3.9-4.9 g/dL Low Albumin 3.8 LAB CA 8.5-10.2 mg/dL Calcium, Total 8.8 LAB TBIL 0.2-1.3 mg/dL Bilirubin, Total 0.4 LAB ALKP 32-117 U/L Alkaline Phosphatase 77 LAB AST 13-35 U/L AST 14 LAB GLU 74-99 mg/dL Glucose High 103 Result Comment: The [place] [employer] (ADA) provides guidance for cutoff values for fasting glucose and random glucose. The ADA defines fasting as no caloric intake for at least 8 hours. Fas ting plasma glucose results between 100 to 125 mg/dL indicate increased risk for diabetes (prediabetes). Fasting plasma glucose results greater than or equal to 126 mg/dL meet the criteria for diagnosis of diabetes. In the absence of unequivocal hyperglycemia, results should be confirmed by repeat testing. In a patient with classic symptoms of hyperglycemia or hyperglycemic crisis, random plasma glucose results greater than or equal to 200 mg/dL meet the criteria for diagnosis of diabetes. Reference: Standards of Medical Care in Diabetes 2016, [place] [employer]. Diabetes Care. 2016.39(Suppl 1). LAB BUN 7-21 mg/dL High BUN 128 Result Comment: Rechecked LAB CRET 0.58-0.96 mg/dL High Creatinine 3.35 LAB NA 136-144 mmol/L Sodium 137 LAB K 3.7-5.1 mmol/L High Potassium 5.2 LAB CL 97-105 mmol/L Chloride Low 96 LAB CO2 22-30 mmol/L CO2 27 LAB AGAP 9-18 mmol/L Anion Gap 14 LAB ALT 7-38 U/L ALT 16 LAB GFRAA eGFR- Amer. 16 LAB GFRNAA . eGFR-All Other Races 13 Result Comment: eGFR (Estimated GFR) Units of measure: mL/min/1.73 meters squared eGFR is derived from the reexpressed MDRD Study equation using the following parameters: serum creatinine, age, gender and race. The creatinine assay has been calibrated to be traceable to IDMS. An eGFR <60 mL/min/1.73m2 for >3 months is consistent with chronic kidney disease. Refer to KDOQI guidelines for clinical interpretation. In patients with unstable renal function, e.g. those with acute kidney injury, the eGFR may not accurately reflect actual GFR. Performed By: #### CBC, CMP #### [facility] [address] [facility] [phone] PROGRESS Observed: 02/13/2018 Status: COMPLETED Source: [place] 3:33 PM CLINIC OTHER CAMPUS REPOSITORY O ID: [id number] Author: Russell Strickland Service: General Internal Medicine Author Type: Physician Type: Progress Notes Filed: 02/13/2018 3:40 PM Note Text: INTERNAL MEDICINE PROGRESS NOTE SERVICE DATE: 02/13/2018 SERVICE TIME: 1535 ADMITTING PHYSICIAN: Gloria Singer Subjective CHIEF COMPLAINT: sob Current Facility-Administered Medications: furosemide 40 mg injection (LASIX) 40 mg INTRAVENOUS BID 9a/5p traMADol 50 mg tab(s) (ULTRAM) 50 mg ORAL q 12 H PRN HYDROcodone 5 mg - acetaminophen 325 mg tablet (NORCO) 1 tablet ORAL q 6 H PRN hydrocortisone 0.5 % cream TOPICAL BID ipratropium-albuterol 3 mL nebulizer solution (DUONEB) 3 mL INHALATION q 4 H PRN insulin lispro 12 Units injection (rapid acting) (HumaLOG) 12 Units SUBCUTANEOUS w MEALS insulin glargine 15 Units injection (long acting) (LANTUS) 15 Units SUBCUTANEOUS DAILY (8 AM) insulin glargine 33 Units injection (long acting) (LANTUS) 33 Units SUBCUTANEOUS AT BEDTIME LORazepam 1 mg injection (ATIVAN) 1 mg INTRAVENOUS q 6 H PRN insulin lispro injection (rapid acting) (HumaLOG) SUBCUTANEOUS AT BEDTIME amiodarone 200 mg tab(s) (PACERONE) 200 mg ORAL DAILY melatonin 3 mg tab(s) 3 mg ORAL AT BEDTIME simvastatin 20 mg tab(s) (ZOCOR) 20 mg ORAL AT BEDTIME aluminum-magnesium hydroxide-simethicone 200-200-20 mg/5 mL 15 mL (MAALOX,MYLANTA,MAG-AL PLUS) 15 mL ORAL q 4 H PRN insulin lispro injection (rapid acting) (HumaLOG) SUBCUTANEOUS w MEALS carvedilol 3.125 mg tab(s) (COREG) 3.125 mg ORAL BID w MEALS cholecalciferol 1,000 Units tab(s) (VITAMIN D3) 1,000 Units ORAL DAILY allopurinol 100 mg tab(s) (ZYLOPRIM) 100 mg ORAL DAILY docusate sodium 100 mg cap(s) (COLACE) 100 mg ORAL BID polyethylene glycol 3350 17 g packet (MIRALAX, GLYCOLAX) 17 g ORAL DAILY bisacodyl 10 mg suppository (DULCOLAX) 10 mg RECTAL DAILY PRN sodium chloride 0.65 % 2 Parker (AYR, OCEAN) 2 Parker EACH NOSTRIL PRN gabapentin 200 mg cap(s) (NEURONTIN) 200 mg ORAL BID ondansetron orally disintegrating 4 mg tab(s) (ZOFRAN ODT) 4 mg ORAL q 6 H PRN acetaminophen 650 mg tab(s) (TYLENOL) 650 mg ORAL q [address] 40 mg tab(s) (PROTONIX) 40 mg ORAL BID bacitracin 1 application topical ointment 1 application TOPICAL BID isosorbide mononitrate ER 60 mg tab(s) (IMDUR) 60 mg ORAL DAILY 0.9% NaCl 3-5 mL 3-5 mL INTRAVENOUS q 12 H dextrose 40 % 15 g 15 g ORAL PRN Or glucagon 1 mg injection (GLUCAGEN) 1 mg INTRAMUSCULAR PRN Or dextrose 50% in water 25 mL syringe 12.5 g INTRAVENOUS PRN miconazole 2 % 1 application topical powder (LOTRIMIN AF, DESENEX) 1 application TOPICAL BID INTERVAL HISTORY OF PRESENT ILLNESS: No f/c, no headaches or dizziness, no cp or palps, no cough Still very sob, no n/v/d Objective PHYSICAL EXAM: Patient Vitals for the past 24 hrs: BP Temp Temp src Pulse Resp SpO2 Weight 02/13/18 1203 - - - 77 - - - 02/13/18 1147 106/54 36.5 ?C (97.7 ?F) Oral (!) 42 18 98 % - 02/13/18 0924 - - - - - 100 % - 02/13/18 0728 105/56 36.4 ?C (97.6 ?F) Oral (!) 53 20 98 % - 02/13/18 0600 - - - - - - 115.8 kg (255 lb 6.4 oz) 02/13/18 0312 126/67 - Oral 60 16 100 % - 02/13/18 0028 126/59 36.3 ?C (97.3 ?F) Oral 87 20 97 % - 02/12/18 2001 112/66 36.4 ?C (97.5 ?F) Oral 73 20 100 % - 02/12/18 1800 - - - 76 - - - 02/12/18 1558 137/64 36.4 ?C (97.5 ?F) Oral (!) 45 20 97 % - Body mass index is 38.83 kg/m?. GENERAL: Alert, no distress, cooperative SKIN: Skin color, texture, turgor normal. No rashes or lesions. OROPHARYNX: Lips, mucosa, and tongue are normal.Teeth and gums, normal. Oropharynx normal. NECK: No carotid bruits LUNGS: Lungs clear to auscultation. Good diaphragmatic excursion. CARDIAC: Normal S1 and S2; no rubs, murmurs, or gallops ABDOMEN: Abdomen soft, non-tender, BS normal, No masses or organomegaly EXTREMITIES: Extremities normal, no deformities, edema, clubbing or skin discoloration. Good capillary refill. DATA: Diagnostic tests reviewed for today's visit: Most recent labs and imaging results. Assessment/Plan Principal Problem (Resolved): Chest pain in adult POA: Yes Assessment AND Plan: troponins mildly elevated due to ckd but stable and pain doesn't appear cardiac in nature. Pt reports pain has been present since defib was moved Appears neuropathic or musculoskeletal in nature, pt already on neurontin and reports side effects to lyrica Nl stress test 08/03 Active Problems: Chronic combined systolic and diastolic CHF (congestive heart failure) ([facility]) POA: Yes Assessment AND Plan: BNP increased from 1300 to 2941 this admit despite attempted diuresis. 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 Plan for tunneled cath on and then start HD Medication and Non-Pharmacologic VTE Prophylaxis/Anticoagulants 01/27/182129 vte non-pharmacologic prophylaxis - none indicated 01/27/182129 vte current anticoag therapy VTE Prophylaxis: VTE prophylaxis appropriate SIGNATURE: Russell Strickland MD PATIENT NAME: Luz Baca DATE: February 13, 2018 TIME: 3:33 PM PAGER/CONTACT #: [phone] CONSULT PROG Observed: 02/13/2018 Status: COMPLETED Source: [place] 2:41 PM CLINIC OTHER CAMPUS REPOSITORY HNO ID: [id number] Author: Malena Bray Service: Nephrology Author Type: Physician Type: Consult Progress Note Filed: 02/13/2018 2:43 PM Note Text: Patient seen and examined. [place]son catheter fell out yesterday. She feels better with IV lasix. Good UOP. No fevers or chills. Blood pressure 106/54, pulse 77, temperature 36.5 ?C (97.7 ?F), temperature source Oral, resp. rate 18, height 172.7 cm (5' 8), weight 115.8 kg (255 lb 6.4 oz), SpO2 98 %. Intake/Output Summary (Last 24 hours) at 02/13/18 1441 Last data filed at 02/13/18 1400 Gross per 24 hour Intake 360 ml Output 1700 ml Net -1340 ml Gen: weak Resp: diminished BS with poor AE CVS: no rub Abd: soft Ext:1+ edema K 5.1, Na 135, Cr 3.3 Hb 11.4 Urine Na < 10, Up/c 0.1 Vit D 15, PTH 198 Renal US no obstruction Impression: 1. ROMÁN on CKD 3 due to diuresis of right > left CHF -poor renal perfusion suggested by low urine Na -Cr has worsened with each diuretic attempt but she remains volume overloaded and with hyperkalemia -Cr stable today 2. Edema multifactorial from right sided CHF and gabapentin 3. Hyperkalemia due to #1 4. Underlying CKD 3 followed by my partner Dr. Martin 5. Hyperuricemia 6. Hyponatremia due to #1 and inability to excrete free water - improved ? Plan: 1. Lasix 40mg IV BID 2. Plan for tunneled HD catheter on Wednesday with initiation of HD unless unexpected improvement in renal function by then 3. Low K diet; no potassium supplementation 4. Added oral Vit D 5. Decreased gabapentin to 200mg BID due to contribution to edema 6. Started allopurinol 100mg daily 7. Outpatient dialysis placement at [facility] 3x/week under my service on discharge ? PROGRESS Observed: 02/13/2018 Status: COMPLETED Source: [place] 12:16 PM CLINIC OTHER CAMPUS REPOSITORY O ID: [id number] Author: Krishan Irwin Rai Service: Pulmonary Disease Author Type: Physician Type: Progress Notes Filed: 02/13/2018 2:39 PM Note Text: [facility] IN-PATIENT CONSULT PROGRESS NOTE SERVICE DATE: 02/13/2018 ASSESSMENT: Acute on Chronic hypoxemic hypercarbic?respiratory failure; PFTs demonstrate restrictive pattern Obesity-hypoventilation syndrome MARLA Acute on chronic combined systolic and diastolic CHF ROMÁN on CKD Atrial FIbrillation s/p pacemaker Former Smoker RECOMMENDATIONS: Continue supplemental oxygen, targeting spO2 > 92% Continue cPAP at night Continue prednisone taper Noted plans for hemodialysis catheter placement on 02/14/2018 Noted plans for IHD per renal team Counseling done regarding importance of using CPAP as prescribed. Plan discussed in detail with patient, RN and primary attending. Patient verbalizes understanding and is in agreement with the current management plan. Total time spent in patient care includes but is not limited to patient/ family discussions, collaborative discussions with other healthcare providers, review of medical records, review of laboratory tests, radiology images/ results, microbiology and pathology data. SUBJECTIVE CHIEF COMPLAINT: SOB INTERVAL HPI:Luz Baca is a 77 year old female with a past medical history of HOCM s/p myectomy, chronic AF on eliquis, s/p pacemaker, CAD s/p multiple stents and CABG, CKD stage III, DMII, HTN, HLD, and chronic respiratory failure 2L O2 at home. Patient reports she is overall feels improved since her admission, states she is still SOB with ambulation. Patient reports she was nauseous last night and this AM. Deniesfevers, chills, night sweats, chest pain, cough abd pain or leg swelling. Hemodialysis catheter placement scheduled for tomorrow. MEDICATIONS: Current Facility-Administered Medications: furosemide 40 mg injection (LASIX) 40 mg INTRAVENOUS DAILY traMADol 50 mg tab(s) (ULTRAM) 50 mg ORAL q 12 H PRN HYDROcodone 5 mg - acetaminophen 325 mg tablet (NORCO) 1 tablet ORAL q 6 H PRN hydrocortisone 0.5 % cream TOPICAL BID ipratropium-albuterol 3 mL nebulizer solution (DUONEB) 3 mL INHALATION q 4 H PRN insulin lispro 12 Units injection (rapid acting) (HumaLOG) 12 Units SUBCUTANEOUS w MEALS insulin glargine 15 Units injection (long acting) (LANTUS) 15 Units SUBCUTANEOUS DAILY (8 AM) insulin glargine 33 Units injection (long acting) (LANTUS) 33 Units SUBCUTANEOUS AT BEDTIME LORazepam 1 mg injection (ATIVAN) 1 mg INTRAVENOUS q 6 H PRN insulin lispro injection (rapid acting) (HumaLOG) SUBCUTANEOUS AT BEDTIME amiodarone 200 mg tab(s) (PACERONE) 200 mg ORAL DAILY melatonin 3 mg tab(s) 3 mg ORAL AT BEDTIME simvastatin 20 mg tab(s) (ZOCOR) 20 mg ORAL AT BEDTIME aluminum-magnesium hydroxide-simethicone 200-200-20 mg/5 mL 15 mL (MAALOX,MYLANTA,MAG-AL PLUS) 15 mL ORAL q 4 H PRN insulin lispro injection (rapid acting) (HumaLOG) SUBCUTANEOUS w MEALS carvedilol 3.125 mg tab(s) (COREG) 3.125 mg ORAL BID w MEALS cholecalciferol 1,000 Units tab(s) (VITAMIN D3) 1,000 Units ORAL DAILY allopurinol 100 mg tab(s) (ZYLOPRIM) 100 mg ORAL DAILY docusate sodium 100 mg cap(s) (COLACE) 100 mg ORAL BID polyethylene glycol 3350 17 g packet (MIRALAX, GLYCOLAX) 17 g ORAL DAILY bisacodyl 10 mg suppository (DULCOLAX) 10 mg RECTAL DAILY PRN sodium chloride 0.65 % 2 Parker (AYR, OCEAN) 2 Parker EACH NOSTRIL PRN apixaban 2.5 mg tab(s) (ELIQUIS) 2.5 mg ORAL BID gabapentin 200 mg cap(s) (NEURONTIN) 200 mg ORAL BID ondansetron orally disintegrating 4 mg tab(s) (ZOFRAN ODT) 4 mg ORAL q 6 H PRN acetaminophen 650 mg tab(s) (TYLENOL) 650 mg ORAL q [address] mg tab(s) (PROTONIX) 40 mg ORAL BID bacitracin 1 application topical ointment 1 application TOPICAL BID isosorbide mononitrate ER 60 mg tab(s) (IMDUR) 60 mg ORAL DAILY 0.9% NaCl 3-5 mL 3-5 mL INTRAVENOUS q 12 H dextrose 40 % 15 g 15 g ORAL PRN Or glucagon 1 mg injection (GLUCAGEN) 1 mg INTRAMUSCULAR PRN Or dextrose 50% in water 25 mL syringe 12.5 g INTRAVENOUS PRN miconazole 2 % 1 application topical powder (LOTRIMIN AF, DESENEX) 1 application TOPICAL BID CURRENT ALLERGIES: ALLERGIES Allergen Reactions - Aspirin Other: See Comments Patient states that she bled out every orifice, sts not allowed to take it at all. Patient states she was bleeding out of nose and mouth after one dose. - Bactrim [Sulfametho* Other: See Comments My throat swells up. - Latex Rash, Itching Itching and welts. No wheezing or shortness of breath. - Penicillins Rash, Itching Tolerated ceftriaxone during 11/2017 admission and cefepime during 12/2017 admission - Tetracycline Rash, GI Upset Emesis and diarrhea. - Atorvastatin Rash - Codeine Other: See Comments Numbness - Dilaudid [Hydromorp* Mental Status Change - Meperidine - Pentazocine - Pioglitazone Unknown - Propoxyphene Patient Vitals for the past 24 hrs: BP Temp Temp src Pulse Resp SpO2 Weight 02/13/18 1203 - - - 77 - - - 02/13/18 1147 106/54 36.5 ?C (97.7 ?F) Oral (!) 42 18 98 % - 02/13/18 0924 - - - - - 100 % - 02/13/18 0728 105/56 36.4 ?C (97.6 ?F) Oral (!) 53 20 98 % - 02/13/18 0600 - - - - - - 115.8 kg (255 lb 6.4 oz) 02/13/18 0312 126/67 - Oral 60 16 100 % - 02/13/18 0028 126/59 36.3 ?C (97.3 ?F) Oral 87 20 97 % - 02/12/18 2001 112/66 36.4 ?C (97.5 ?F) Oral 73 20 100 % - 02/12/18 1800 - - - 76 - - - 02/12/18 1558 137/64 36.4 ?C (97.5 ?F) Oral (!) 45 20 97 % - Intake/Output Summary (Last 24 hours) at 02/13/18 1217 Last data filed at 02/13/18 0945 Gross per 24 hour Intake 360 ml Output 1300 ml Net -940 ml OBJECTIVE PHYSICAL EXAM: BP 106/54 Pulse 77[per tele[ Temp (Src) 97.7 (Oral) Resp 18 Ht 5' 8 (1.73m) Wt 255 lb 6.4 oz (115.8kg) SpO2 98% BMI 38.84 kg/(m2). General appearance: well appearing, alert, in no acute distress Nose/Sinuses: No visible rhinorherra Oropharynx: Lips, mucosa, and tongue moist Respiratory: lungs clear to auscultation, no wheezing or rhonchi Cardiovascular: Negative. RRR without murmur, gallop, or rubs. No ectopy Abdomen: Soft, non tender, non distended. Normal bowel sounds. Extremities: Normal pulses. No peripheral edema. DATA Diagnostic tests reviewed for today's visit, films/specimens were personally reviewed by me: Most recent labs and imaging results. CBC, Coags, BMP, Mg, Phos Recent Labs 02/13/18 0621 02/12/18 0016 02/11/18 0513 WBC 7.58 7.76 7.01 HB 11.4* 11.2* 10.6* HCT 36.6 35.1* 34.0* PLT 205 216 209 NA 135* 127* 131* K 5.1 5.6* 5.2* CHLOR 94* 89* 93* CO2 26 23 21* BUN 125* 114* 109* CREAT 3.30* 3.41* 3.32* GLUC 89 125* 146* CA 8.9 8.4* 8.5 MG -- 2.8* -- Liver Function, Amylase, AND Lipase Recent Labs 02/13/18 0621 02/12/18 0016 02/11/18 0513 TPROT 6.8 6.9 6.5 ALB 3.8* 3.6* 3.3* ALT 16 17 16 AST 14 15 25 ALKPHOS 82 88 83 TBILI 0.4 0.3 0.4 CXR 02/07/2018 IMPRESSION: Lines, tubes, and devices: ?Pacemaker wire in the right ventricle Lungs and pleura: ?Mild vascular prominence and indistinctness may indicate mild congestion. No obvious pleural effusions. Left base streaky densities probably subsegmental atelectasis and is not significantly changed. Cardiomediastinal silhouette: ?Moderately enlarged, stable SIGNATURE: Clay Fields PA-C PATIENT NAME: Luz Baca DATE: February 13, 2018 TIME: 12:17 PM PAGER/CONTACT #: [phone] I have personally interviewed and examined the patient. I have personally verified elements of the exam listed above. Interval changes or irregualrities are as noted. I have personally and independently reviewed CXR images and PFT tracings and results (see data section). I have personally reviewed the problem list above and concur. Changes, if any, are noted. I have personally reviewed the plan list above and concur. Changes, if any, are noted. Krishan Irwin Rai, MD, [facility] Staff, Pulmonary and Critical Care Medicine [facility] [place] Pager #[phone] CBC Collected: 02/13/2018 Status: F Source: [place] 6:21 AM CLINIC OTHER CAMPUS REPOSITORY TYPE CODE TESTS RESULT OUT OF REFERENCE UNITS RANGE LAB WBC 3.70-11.00 k/uL WBC 7.58 LAB RBC 3.90-5.20 m/uL Low RBC 3.83 LAB HGB 11.5-15.5 g/dL Low Hemoglobin 11.4 LAB HCT 36.0-46.0 % Hematocrit 36.6 LAB MCV 80.0-100.0 fL MCV 95.6 LAB MCH 26.0-34.0 pG MCH 29.8 LAB MCHC 30.5-36.0 g/dL MCHC 31.1 LAB RDWCV 11.5-15.0 % RDW-CV 14.9 LAB PLTCT 150-400 k/uL Platelet Count 205 LAB MPV 9.0-12.7 fL MPV 9.5 Performed By: #### CBC, CMP #### [facility] [address] [facility] [phone] COMP METABOLIC PANEL Collected: 02/13/2018 Status: F Source: [place] 6:21 AM CLIN[facility] OTHER CAMPUS REPOSITORY TYPE CODE TESTS RESULT OUT OF REFERENCE UNITS RANGE LAB TP 6.3-8.0 g/dL Protein, Total 6.8 LAB ALB 3.9-4.9 g/dL Low Albumin 3.8 LAB CA 8.5-10.2 mg/dL Calcium, Total 8.9 LAB TBIL 0.2-1.3 mg/dL Bilirubin, Total 0.4 LAB ALKP 32-117 U/L Alkaline Phosphatase 82 LAB AST 13-35 U/L AST 14 LAB GLU 74-99 mg/dL Glucose 89 Result Comment: The [place] [employer] (ADA) provides guidance for cutoff values for fasting glucose and random glucose. The ADA defines fasting as no caloric intake for at least 8 hours. Fas ting plasma glucose results between 100 to 125 mg/dL indicate increased risk for diabetes (prediabetes). Fasting plasma glucose results greater than or equal to 126 mg/dL meet the criteria for diagnosis of diabetes. In the absence of unequivocal hyperglycemia, results should be confirmed by repeat testing. In a patient with classic symptoms of hyperglycemia or hyperglycemic crisis, random plasma glucose results greater than or equal to 200 mg/dL meet the criteria for diagnosis of diabetes. Reference: Standards of Medical Care in Diabetes 2016, [place] [employer]. Diabetes Care. 2016.39(Suppl 1). LAB BUN 7-21 mg/dL High BUN 125 Result Comment: Rechecked LAB CRET 0.58-0.96 mg/dL High Creatinine 3.30 LAB NA 136-144 mmol/L Sodium Low 135 LAB K 3.7-5.1 mmol/L Potassium 5.1 LAB CL 97-105 mmol/L Chloride Low 94 LAB CO2 22-30 mmol/L CO2 26 LAB AGAP 9-18 mmol/L Anion Gap 15 LAB ALT 7-38 U/L ALT 16 LAB GFRAA eGFR- Amer. 16 LAB GFRNAA . eGFR-All Other Races 14 Result Comment: eGFR (Estimated GFR) Units of measure: mL/min/1.73 meters squared eGFR is derived from the reexpressed MDRD Study equation using the following parameters: serum creatinine, age, gender and race. The creatinine assay has been calibrated to be traceable to IDMS. An eGFR <60 mL/min/1.73m2 for >3 months is consistent with chronic kidney disease. Refer to KDOQI guidelines for clinical interpretation. In patients with unstable renal function, e.g. those with acute kidney injury, the eGFR may not accurately reflect actual GFR. Performed By: #### CBC, CMP #### [facility] [address] [place] [address] NURSING PROG Observed: 02/13/2018 Status: COMPLETED Source: [place] 4:40 AM [facility] REPOSITORY HNO ID: [id number] Author: Catarina (Rn) ALLYSON Jack Service: Nursing Author Type: Registered Nurse Type: Nursing Progress Note Filed: 02/13/2018 4:41 AM Note Text: Nursing Progress Note Patient Name: Luz Baca Patient Location: [place] [id number] Daily Note: 0330: Patients goodson fell out, Dr. Hart notified and said it was okay to leave out This note was completed by: Catarina Jack RN CONSULT PROG Observed: 02/12/2018 Status: COMPLETED Source: [place] 12:44 PM [facility] REPOSITORY HNO ID: [id number] Author: Malena Bray Service: Nephrology Author Type: Physician Type: Consult Progress Note Filed: 02/12/2018 12:46 PM Note Text: Patient seen and examined. She is now agreeable to dialysis. Tentatively placed on schedule for February 15 for HD catheter. No fevers or chills. She is still SOB. Asking for goodson catheter. Given kayexalate this AM. Blood pressure 113/50, pulse 105, temperature 36.3 ?C (97.3 ?F), temperature source Axillary, resp. rate 22, height 172.7 cm (5' 8), weight 116.8 kg (257 lb 8 oz), SpO2 97 %. Intake/Output Summary (Last 24 hours) at 02/12/18 1244 Last data filed at 02/12/18 0700 Gross per 24 hour Intake 222 ml Output 975 ml Net -753 ml Gen: weak Resp: diminished BS with poor AE CVS: no rub Abd: soft Ext:1+ edema K 5.6, Cr 3.4, BUN 114 Hb 11.2 Urine Na < 10, Up/c 0.1 Vit D 15, PTH 198 Renal US no obstruction Impression: 1. ROMÁN on CKD 3 due to diuresis of right > left CHF -poor renal perfusion suggested by low urine Na -Cr has worsened with each diuretic attempt but she remains volume overloaded and with hyperkalemia 2. Edema multifactorial from right sided CHF and gabapentin 3. Hyperkalemia due to #1 4. Underlying CKD [address] my partner Dr. Martin 5. Hyperuricemia ? Plan: 1. Agree with extra lasix and kayexalate today 2. Plan for tunneled HD catheter on Wednesday with initiation of HD 3. Low K diet; no potassium supplementation 4. Added oral Vit D 5. Decreased gabapentin to 200mg BID due to contribution to edema 6. Started allopurinol 100mg daily 7. Outpatient dialysis placement at [facility] 3x/week under my service ? CONSULT PROG Observed: 02/12/2018 Status: COMPLETED Source: [place] 10:41 AM CLINIC OTHER CAMPUS REPOSITORY O ID: [id number] Author: Dina Bowman MD Service: Endocrinology Author Type: Physician Type: Consult Progress Note Filed: 02/12/2018 10:46 AM Note Text: Endocrinology Progress Note IMPRESSION: ? Type 2 diabetes mellitus, insulin-requiring - glycemic control good ? Hyponatremia - start fluid restriction PLAN: ? Continue current insulin dose regimen ? 1800 mL fluid restriction INTERVAL HISTORY: Still dyspneic with minimal exertion, awaiting dialysis catheter placement Current hospital medications: hydrocortisone 0.5 % cream TOPICAL BID ipratropium-albuterol 3 mL nebulizer solution (DUONEB) 3 mL INHALATION q 4 H PRN [START ON 02/13/2018] predniSONE 20 mg tab(s) (DELTASONE) 20 mg ORAL ONCE [START ON 02/14/2018] predniSONE 10 mg tab(s) (DELTASONE) 10 mg ORAL ONCE insulin lispro 12 Units injection (rapid acting) (HumaLOG) 12 Units SUBCUTANEOUS w MEALS insulin glargine 15 Units injection (long acting) (LANTUS) 15 Units SUBCUTANEOUS DAILY (8 AM) insulin glargine 33 Units injection (long acting) (LANTUS) 33 Units SUBCUTANEOUS AT BEDTIME LORazepam 1 mg injection (ATIVAN) 1 mg INTRAVENOUS q 6 H PRN insulin lispro injection (rapid acting) (HumaLOG) SUBCUTANEOUS AT BEDTIME amiodarone 200 mg tab(s) (PACERONE) 200 mg ORAL DAILY HYDROcodone 5 mg - acetaminophen 325 mg tablet (NORCO) 1 tablet ORAL q 6 H PRN melatonin 3 mg tab(s) 3 mg ORAL AT BEDTIME simvastatin 20 mg tab(s) (ZOCOR) 20 mg ORAL AT BEDTIME aluminum-magnesium hydroxide-simethicone 200-200-20 mg/5 mL 15 mL (MAALOX,MYLANTA,MAG-AL PLUS) 15 mL ORAL q 4 H PRN insulin lispro injection (rapid acting) (HumaLOG) SUBCUTANEOUS w MEALS carvedilol 3.125 mg tab(s) (COREG) 3.125 mg ORAL BID w MEALS cholecalciferol 1,000 Units tab(s) (VITAMIN D3) 1,000 Units ORAL DAILY allopurinol 100 mg tab(s) (ZYLOPRIM) 100 mg ORAL DAILY docusate sodium 100 mg cap(s) (COLACE) 100 mg ORAL BID polyethylene glycol 3350 17 g packet (MIRALAX, GLYCOLAX) 17 g ORAL DAILY bisacodyl 10 mg suppository (DULCOLAX) 10 mg RECTAL DAILY PRN sodium chloride 0.65 % 2 Parker (AYR, OCEAN) 2 Parker EACH NOSTRIL PRN apixaban 2.5 mg tab(s) (ELIQUIS) 2.5 mg ORAL BID gabapentin 200 mg cap(s) (NEURONTIN) 200 mg ORAL BID ondansetron orally disintegrating 4 mg tab(s) (ZOFRAN ODT) 4 mg ORAL q 6 H PRN acetaminophen 650 mg tab(s) (TYLENOL) 650 mg ORAL q [address] 40 mg tab(s) (PROTONIX) 40 mg ORAL BID bacitracin 1 application topical ointment 1 application TOPICAL BID isosorbide mononitrate ER 60 mg tab(s) (IMDUR) 60 mg ORAL DAILY 0.9% NaCl 3-5 mL 3-5 mL INTRAVENOUS q 12 H dextrose 40 % 15 g 15 g ORAL PRN glucagon 1 mg injection (GLUCAGEN) 1 mg INTRAMUSCULAR PRN dextrose 50% in water 25 mL syringe 12.5 g INTRAVENOUS PRN miconazole 2 % 1 application topical powder (LOTRIMIN AF, DESENEX) 1 application TOPICAL BID PHYSICAL EXAM:BP 125/78 Pulse 71 Temp 36.3 ?C (97.3 ?F) (Axillary) Resp 20 Ht 172.7 cm (5' 8) Wt 116.8 kg (257 lb 8 oz) SpO2 97% BMI 39.15 kg/m? General appearance: Tired-appearing, obese (BMI greater than 30) female, alert, in no acute distress, well-hydrated, well nourished. Skin: Skin color, texture, turgor normal, no suspicious rashes or lesions Head: normocephalic, no masses, lesions, tenderness or abnormalities Eyes: Anicteric sclera. Pupils are equally round. Extraocular movements are intact. Ears: not examined Nose/Sinuses: Nares normal. No drainage or sinus tenderness. Oropharynx: Lips, mucosa, and tongue normal, teeth and gums not examined. Neck: Supple, no adenopathy; no visible thyroid enlargement. Lungs: Breathing unlabored. Heart: RRR. No ectopy Abdomen: deferred LAB DATA: Fingerstick glucose readings reviewed. Results for LUZ BACA ( ) Ref. Range 02/12/2018 00:16 Sodium Latest Ref Range: 136 - 144 mmol/L 127 (L) Potassium Latest Ref Range: 3.7 - 5.1 mmol/L 5.6 (H) Chloride Latest Ref Range: 97 - 105 mmol/L 89 (L) CO2 Latest Ref Range: 22 - 30 mmol/L 23 BUN Latest Ref Range: 7 - 21 mg/dL 114 (H) Creatinine Latest Ref Range: 0.58 - 0.96 mg/dL 3.41 (H) Glucose Latest Ref Range: 74 - 99 mg/dL 125 (H) Protein, Total Latest Ref Range: 6.3 - 8.0 g/dL 6.9 Calcium Latest Ref Range: 8.5 - 10.2 mg/dL 8.4 (L) Magnesium Latest Ref Range: 1.7 - 2.3 mg/dL 2.8 (H) Albumin Latest Ref Range: 3.9 - 4.9 g/dL 3.6 (L) Bilirubin, Total Latest Ref Range: 0.2 - 1.3 mg/dL 0.3 Alk Phosphatase Latest Ref Range: 32 - 117 U/L 88 ALT Latest Ref Range: 7 - 38 U/L 17 AST Latest Ref Range: 13 - 35 U/L 15 Anion Gap Latest Ref Range: 9 - 18 mmol/L 15 eGFR-All Others Latest Units: . 13 Hematocrit Latest Ref Range: 36.0 - 46.0 % 35.1 (L) Dina Bowman MD [facility] Endocrinology and Metabolism [place] [facility] February 12, 2018 10:41 AM PROGRESS Observed: 02/12/2018 Status: COMPLETED Source: [place] 10:16 AM [facility] REPOSITORY O ID: [id number] Author: Russell Strickland Service: General Internal Medicine Author Type: Physician Type: Progress Notes Filed: 02/12/2018 10:25 AM Note Text: INTERNAL MEDICINE PROGRESS NOTE SERVICE DATE: 02/12/2018 SERVICE TIME: 1015 ADMITTING PHYSICIAN: Gloria Singer Subjective CHIEF COMPLAINT: Chest pain Current Facility-Administered Medications: hydrocortisone 0.5 % cream TOPICAL BID ipratropium-albuterol 3 mL nebulizer solution (DUONEB) 3 mL INHALATION q 4 H PRN insulin lispro 12 Units injection (rapid acting) (HumaLOG) 12 Units SUBCUTANEOUS w MEALS insulin glargine 15 Units injection (long acting) (LANTUS) 15 Units SUBCUTANEOUS DAILY (8 AM) insulin glargine 33 Units injection (long acting) (LANTUS) 33 Units SUBCUTANEOUS AT BEDTIME LORazepam 1 mg injection (ATIVAN) 1 mg INTRAVENOUS q 6 H PRN insulin lispro injection (rapid acting) (HumaLOG) SUBCUTANEOUS AT BEDTIME amiodarone 200 mg tab(s) (PACERONE) 200 mg ORAL DAILY HYDROcodone 5 mg - acetaminophen 325 mg tablet (NORCO) 1 tablet ORAL q 6 H PRN melatonin 3 mg tab(s) 3 mg ORAL AT BEDTIME simvastatin 20 mg tab(s) (ZOCOR) 20 mg ORAL AT BEDTIME aluminum-magnesium hydroxide-simethicone 200-200-20 mg/5 mL 15 mL (MAALOX,MYLANTA,MAG-AL PLUS) 15 mL ORAL q 4 H PRN insulin lispro injection (rapid acting) (HumaLOG) SUBCUTANEOUS w MEALS carvedilol 3.125 mg tab(s) (COREG) 3.125 mg ORAL BID w MEALS cholecalciferol 1,000 Units tab(s) (VITAMIN D3) 1,000 Units ORAL DAILY allopurinol 100 mg tab(s) (ZYLOPRIM) 100 mg ORAL DAILY docusate sodium 100 mg cap(s) (COLACE) 100 mg ORAL BID polyethylene glycol 3350 17 g packet (MIRALAX, GLYCOLAX) 17 g ORAL DAILY bisacodyl 10 mg suppository (DULCOLAX) 10 mg RECTAL DAILY PRN sodium chloride 0.65 % 2 Parker (AYR, OCEAN) 2 Parker EACH NOSTRIL PRN apixaban 2.5 mg tab(s) (ELIQUIS) 2.5 mg ORAL BID gabapentin 200 mg cap(s) (NEURONTIN) 200 mg ORAL BID ondansetron orally disintegrating 4 mg tab(s) (ZOFRAN ODT) 4 mg ORAL q 6 H PRN acetaminophen 650 mg tab(s) (TYLENOL) 650 mg ORAL q [address] 40 mg tab(s) (PROTONIX) 40 mg ORAL BID bacitracin 1 application topical ointment 1 application TOPICAL BID isosorbide mononitrate ER 60 mg tab(s) (IMDUR) 60 mg ORAL DAILY 0.9% NaCl 3-5 mL 3-5 mL INTRAVENOUS q 12 H dextrose 40 % 15 g 15 g ORAL PRN Or glucagon 1 mg injection (GLUCAGEN) 1 mg INTRAMUSCULAR PRN Or dextrose 50% in water 25 mL syringe 12.5 g INTRAVENOUS PRN miconazole 2 % 1 application topical powder (LOTRIMIN AF, DESENEX) 1 application TOPICAL BID INTERVAL HISTORY OF PRESENT ILLNESS: No f/c, no headaches or dizziness, no palps, cp the same, sob the same, no cough, no n/v/d Objective PHYSICAL EXAM: Patient Vitals for the past 24 hrs: BP Temp Temp src Pulse Resp SpO2 Weight 02/12/18 0800 - - - 71 - - - 02/12/18 0732 125/78 36.3 ?C (97.3 ?F) Axillary (!) 41 20 97 % - 02/12/18 0400 - - - - - - 116.8 kg (257 lb 8 oz) 02/12/18 0351 133/70 36.6 ?C (97.9 ?F) Oral (!) 126 18 96 % - 02/12/18 0048 129/71 36.4 ?C (97.5 ?F) Oral 87 18 96 % - 02/11/18 1945 141/63 36.2 ?C (97.2 ?F) Axillary 96 20 98 % - 02/11/18 1730 - - - 75 - - - 02/11/18 1514 118/74 (!) 35.7 ?C (96.3 ?F) Axillary (!) 44 22 98 % - 02/11/18 1201 110/55 36.3 ?C (97.4 ?F) Oral (!) 51 22 97 % - Body mass index is 39.15 kg/m?. GENERAL: Alert, no distress, cooperative SKIN: Skin color, texture, turgor normal. No rashes or lesions. OROPHARYNX: Lips, mucosa, and tongue are normal.Teeth and gums, normal. Oropharynx normal. NECK: No carotid bruits LUNGS: Lungs clear to auscultation. Good diaphragmatic excursion. CARDIAC: Normal S1 and S2; no rubs, murmurs, or gallops ABDOMEN: Abdomen soft, non-tender, BS normal, No masses or organomegaly EXTREMITIES: Extremities normal, no deformities, edema, clubbing or skin discoloration. Good capillary refill. DATA: Diagnostic tests reviewed for today's visit: Most recent labs and imaging results. Assessment/Plan Principal Problem (Resolved): Chest pain in adult POA: Yes Assessment AND Plan: trops stable and likely elevated due to ckd. Nl stress test 08/03. Current cp doesn't sound cardiac in nature and pt reports some chest pain ever since defib was moved. ? If pain more neuropathic or muscular. She is already on neurontin and reports side effects to lyrica Active Problems: Acute on Chronic combined systolic and diastolic CHF (congestive heart failure) (HCC) POA: Yes Assessment AND Plan: bnp has increased while admitted from 1300 to 2941 despite attempted diuresis. Cr has also risen with attempted diuresis. ECHO ef 50%, grade 3 diastolic dysfunction and pulm HTN. Pt is agreeable to dialysis to help with fluid management Atrial fibrillation (HCC) POA: Yes Assessment AND Plan: cont eliquis and pacerone CAD (coronary artery disease) POA: Yes Assessment AND Plan: hx cabg Uncontrolled type 2 diabetes mellitus with stage 3 chronic kidney disease, with long-term current use of insulin (HCC) POA: Yes Assessment AND Plan: a1c 12, cont insulin, ssi as needed Sleep apnea POA: Yes Assessment AND Plan: cont cpap ROMÁN: baseline Cr 1.5, now 3.4 with attempted diuresis, renal following. Pt agreeable to dialysis. Hyperkalemia: low K diet, one dose kayexalate today Medication and Non-Pharmacologic VTE Prophylaxis/Anticoagulants Anticoagulant AND Antiplatelet Medications Start Dose Route Frequency Ordered Stop 02/01/18 2100 apixaban 2.5 mg tab(s) (ELIQUIS) 2.5 mg ORAL 2 TIMES DAILY 02/01/18 1005 -- 01/27/182129 vte non-pharmacologic prophylaxis - none indicated 01/27/182129 vte current anticoag therapy VTE Prophylaxis: VTE prophylaxis appropriate SIGNATURE: Russell Strickland MD PATIENT NAME: Luz Baca DATE: February 12, 2018 TIME: 10:16 AM PAGER/CONTACT #: [id number] PROGRESS Observed: 02/12/2018 Status: COMPLETED Source: [place] 4:22 AM [facility] OTHER CAMPUS REPOSITORY HNO ID: [id number] Author: Downtime Note Service: (none) Author Type: (none) Type: Progress Notes Filed: 02/12/2018 4:27 AM Note Text: Epic Scheduled Downtime: 02/11/2018 11:34:32 PM to 02/12/2018 4:17:42 AM CBC Collected: 02/12/2018 Status: F Source: [place] 12:16 AM CLINIC OTHER CAMPUS REPOSITORY TYPE CODE TESTS RESULT OUT OF REFERENCE UNITS RANGE LAB WBC 3.70-11.00 k/uL WBC 7.76 LAB RBC 3.90-5.20 m/uL Low RBC 3.73 LAB HGB 11.5-15.5 g/dL Low Hemoglobin 11.2 LAB HCT 36.0-46.0 % Low Hematocrit 35.1 LAB MCV 80.0-100.0 fL MCV 94.1 LAB MCH 26.0-34.0 pG MCH 30.0 LAB MCHC 30.5-36.0 g/dL MCHC 31.9 LAB RDWCV 11.5-15.0 % RDW-CV 14.8 LAB PLTCT 150-400 k/uL Platelet Count 216 LAB MPV 9.0-12.7 fL Low MPV 8.9 Performed By: #### CBC, MG1, CMP #### [facility] [address] [place] [address] MAGNESIUM Collected: 02/12/2018 Status: F Source: [place] 12:16 AM [facility] OTHER CAMPUS REPOSITORY TYPE CODE TESTS RESULT OUT OF REFERENCE UNITS RANGE LAB MG 1.7-2.3 mg/dL High Magnesium 2.8 Performed By: #### CBC, MG1, CMP #### [facility] [address] [place] [address] COMP METABOLIC PANEL Collected: 02/12/2018 Status: F Source: [place] 12:16 AM [facility] OTHER [place] REPOSITORY TYPE CODE TESTS RESULT OUT OF REFERENCE UNITS RANGE LAB TP 6.3-8.0 g/dL Protein, Total 6.9 LAB ALB 3.9-4.9 g/dL Low Albumin 3.6 LAB CA 8.5-10.2 mg/dL Low Calcium, Total 8.4 LAB TBIL 0.2-1.3 mg/dL Bilirubin, Total 0.3 LAB ALKP 32-117 U/L Alkaline Phosphatase 88 LAB AST 13-35 U/L AST 15 LAB GLU 74-99 mg/dL Glucose High 125 Result Comment: The [place] [employer] (ADA) provides guidance for cutoff values for fasting glucose and random glucose. The ADA defines fasting as no caloric intake for at least 8 hours. Fas ting plasma glucose results between 100 to 125 mg/dL indicate increased risk for diabetes (prediabetes). Fasting plasma glucose results greater than or equal to 126 mg/dL meet the criteria for diagnosis of diabetes. In the absence of unequivocal hyperglycemia, results should be confirmed by repeat testing. In a patient with classic symptoms of hyperglycemia or hyperglycemic crisis, random plasma glucose results greater than or equal to 200 mg/dL meet the criteria for diagnosis of diabetes. Reference: Standards of Medical Care in Diabetes 2016, [place] [employer]. Diabetes Care. 2016.39(Suppl 1). LAB BUN 7-21 mg/dL High BUN 114 Result Comment: Rechecked LAB CRET 0.58-0.96 mg/dL High Creatinine 3.41 LAB NA 136-144 mmol/L Sodium Low 127 LAB K 3.7-5.1 mmol/L High Potassium 5.6 LAB CL 97-105 mmol/L Chloride Low 89 LAB CO2 22-30 mmol/L CO2 23 LAB AGAP 9-18 mmol/L Anion Gap 15 LAB ALT 7-38 U/L ALT 17 LAB GFRAA eGFR- Amer. 16 LAB GFRNAA . eGFR-All Other Races 13 Result Comment: eGFR (Estimated GFR) Units of measure: mL/min/1.73 meters squared eGFR is derived from the reexpressed MDRD Study equation using the following parameters: serum creatinine, age, gender and race. The creatinine assay has been calibrated to be traceable to IDMS. An eGFR <60 mL/min/1.73m2 for >3 months is consistent with chronic kidney disease. Refer to KDOQI guidelines for clinical interpretation. In patients with unstable renal function, e.g. those with acute kidney injury, the eGFR may not accurately reflect actual GFR. Performed By: #### CBC, MG1, CMP #### [facility] [address] [facility] [phone] THERAPY NT Observed: 02/12/2018 Status: COMPLETED Source: [place] 12:03 AM [facility] REPOSITORY HNO ID: [id number] Author: Patience (Size Mixer) Aman Service: Respiratory Therapy Author Type: Registered Resp Therapist Type: Therapy (PT/OT/Speech/Resp) Filed: 02/12/2018 5:59 AM Note Text: Pt refused cpap at this time. No distress noted CONSULT Observed: 02/11/2018 Status: COMPLETED Source: [place] 8:13 PM [facility] REPOSITORY HNO ID: [id number] Author: Michael Hogan Service: Vascular Surgery Author Type: Physician Type: Consults Filed: 02/11/2018 8:18 PM Note Text: CONSULT: Vascular Surgery SERVICE SERVICE DATE: 02/11/2018 SERVICE TIME: 8:14 PM REASON FOR CONSULT: Tunneled catheter placement REQUESTING PHYSICIAN: Dr. Bray PRIMARY CARE PHYSICIAN: Jameson Kamara MD Subjective Ms. Baca is a 77 year old female who presents for chest pain. She has a history of HOCM, a fib on anticoagulation, pacemaker with a history of CKD 3. She was noted to have rising Cr. Asked by nephrology for tunneled catheter placement FUNCTIONAL STATUS: Independent PAST MEDICAL HISTORY Diagnosis Date - Arthritis - Atrial fibrillation (HCC) - CAD (coronary artery disease) stents x9, defibrillator, CABG. Seeing Dr. Cardona - Cardiac defibrillator in place - Cardiomegaly - Carotid artery disease (HCC) left - Chronic kidney disease (CKD) stage G3b/A2, moderately decreased glomerular filtration rate (GFR) between 30-44 mL/min/1.73 square meter and albuminuria creatinine ratio between 30-299 mg/g Dr. Martin - COPD (chronic obstructive pulmonary disease) ([facility]) Dr. Cruz - Depression - Diabetes ([facility]) - Diabetic neuropathy ([facility]) - Edema - GERD (gastroesophageal reflux disease) - Gout with hyperuricemia - HH (hiatus hernia) - HOCM (hypertrophic obstructive cardiomyopathy) ([facility]) S/P Septal Myectomy in 2003. Now with LVEF 50% and mod/severe pulm HTN. - HTN (hypertension) - Hyperlipidemia - Morbid obesity with BMI of 40.0-44.9, adult ([facility]) - Sleep apnea 2011 not on CPAP, unable to tolerate mask 02/2017 - SVT (supraventricular tachycardia) ([facility]) NSVT and questionable VT in 2003 post op PAST SURGICAL HISTORY Procedure Laterality Date - CHOLECYSTECTOMY HX - HEART SURGERY HX 07/18/2004 Septal myectomy and CABG x2 ([facility]BORAH-LAD, SVG-PDA). - HYSTERECTOMY HX - IANDD PERIANAL ABSCESS - PAST SURGICAL HISTORY OF left breast nodule removed - PAST SURGICAL HISTORY OF skin lesions removed FAMILY HISTORY Problem Relation Age of Onset - Hypertension Mother living at age 93, HTN - Heart Failure Mother [place] - Cancer Father age 71, lung cancer Social History Substance Use Topics - Smoking status: Former Smoker Packs/day: 2.50 Years: 43.00 Types: Cigarettes Start date: 1961 Quit date: 07/07/2004 - Smokeless tobacco: Never Used - Alcohol use No Prescriptions Prior to Admission: furosemide (LASIX) 40 mg tablet Take 80 mg by mouth twice daily. Disp: Rfl: 01/27/2018 at 0800 gabapentin (NEURONTIN) 300 mg capsule Take 600 mg by mouth twice daily. Disp: Rfl: 01/27/2018 at 0800 insulin aspart U-100 (NOVOLOG FLEXPEN U-100 INSULIN) 100 unit/mL inpn Inject 12 Units subcutaneously three times daily with meals. Disp: Rfl: 01/27/2018 at Unknown time insulin glargine (LANTUS SOLOSTAR U-100 INSULIN) 100 unit/mL (3 mL) inpn Inject 50 Units subcutaneously every morning. Disp: Rfl: 01/27/2018 at 0800 insulin glargine (LANTUS SOLOSTAR U-100 INSULIN) 100 unit/mL (3 mL) inpn Inject 36 Units subcutaneously daily at bedtime. Disp: Rfl: 01/26/[address] (PROTONIX) 40 mg tablet Take 40 mg by mouth twice daily. Disp: Rfl: 01/27/2018 at 0800 potassium chloride (K-TAB) 10 mEq tablet Take 10 mEq by mouth daily with breakfast. Disp: Rfl: 01/27/2018 at 0800 bacitracin (ANTIBIOTIC, BACITRACIN ZINC,) ointment Apply 1 application to affected area twice daily. Disp: 1 Tube Rfl: 1 01/27/2018 at Unknown time nystatin (NYSTOP) powder Apply 1 application to affected area three times daily. Disp: 60 g Rfl: 2 Unknown at Unknown time isosorbide mononitrate ER (IMDUR) 60 mg 24 hr tablet Take 1 tablet by mouth once daily. Disp: 30 tablet Rfl: 5 01/27/2018 at 0800 apixaban (ELIQUIS) 5 mg tab(s) Take 5 mg by mouth twice daily. Disp: Rfl: 01/27/2018 at 0800 simvastatin (ZOCOR) 40 mg tablet Take 40 mg by mouth every morning. Disp: Rfl: 01/27/2018 at 0800 spironolactone (ALDACTONE) 25 mg tablet Take 1 tablet by mouth once daily. Disp: Rfl: 01/27/2018 at 0800 ipratropium-albuterol (DUONEB) 0.5 mg-3 mg(2.5 mg base)/3 mL nebu Inhale 3 mL as instructed every 4 hours as needed. Disp: 180 Vial Rfl: 3 Unknown at Unknown time guaiFENesin-dextromethorphan (ROBITUSSIN DM) 100-10 mg/5 mL syrup Take 5-10 mL by mouth every 6 hours as needed for Cough. Disp: 118 mL Rfl: 0 Unknown at Unknown time nitroglycerin sublingual (NITROQUICK) 0.4 mg SL tablet Dissolve 1 tablet under the tongue every 5 minutes as needed. Disp: 1 Bottle of 25 Rfl: 0 Unknown at Unknown time OXYGEN, HOME THERAPY, Inhale 2.5 L/min as instructed continuous. 3 L/min when leaves home. Disp: Rfl: Unknown at Unknown time gabapentin (NEURONTIN) 300 mg capsule Take 2 capsules by mouth three times daily for 30 days. (Patient taking differently: Take 600 mg by mouth twice daily. ) Disp: Rfl: 12/09/2017 Current hospital medications: hydrocortisone 0.5 % cream TOPICAL BID ipratropium-albuterol 3 mL nebulizer solution (DUONEB) 3 mL INHALATION q 4 H PRN [START ON 02/12/2018] predniSONE (DELTASONE) tab(s) 30 mg 30 mg ORAL ONCE [START ON 02/13/2018] predniSONE 20 mg tab(s) (DELTASONE) 20 mg ORAL ONCE [START ON 02/14/2018] predniSONE 10 mg tab(s) (DELTASONE) 10 mg ORAL ONCE insulin lispro 12 Units injection (rapid acting) (HumaLOG) 12 Units SUBCUTANEOUS w MEALS insulin glargine 15 Units injection (long acting) (LANTUS) 15 Units SUBCUTANEOUS DAILY (8 AM) insulin glargine 33 Units injection (long acting) (LANTUS) 33 Units SUBCUTANEOUS AT BEDTIME LORazepam 1 mg injection (ATIVAN) 1 mg INTRAVENOUS q 6 H PRN insulin lispro injection (rapid acting) (HumaLOG) SUBCUTANEOUS AT BEDTIME amiodarone 200 mg tab(s) (PACERONE) 200 mg ORAL DAILY HYDROcodone 5 mg - acetaminophen 325 mg tablet (NORCO) 1 tablet ORAL q 6 H PRN melatonin 3 mg tab(s) 3 mg ORAL AT BEDTIME simvastatin 20 mg tab(s) (ZOCOR) 20 mg ORAL AT BEDTIME aluminum-magnesium hydroxide-simethicone 200-200-20 mg/5 mL 15 mL (MAALOX,MYLANTA,MAG-AL PLUS) 15 mL ORAL q 4 H PRN insulin lispro injection (rapid acting) (HumaLOG) SUBCUTANEOUS w MEALS carvedilol 3.125 mg tab(s) (COREG) 3.125 mg ORAL BID w MEALS cholecalciferol 1,000 Units tab(s) (VITAMIN D3) 1,000 Units ORAL DAILY allopurinol 100 mg tab(s) (ZYLOPRIM) 100 mg ORAL DAILY docusate sodium 100 mg cap(s) (COLACE) 100 mg ORAL BID polyethylene glycol 3350 17 g packet (MIRALAX, GLYCOLAX) 17 g ORAL DAILY bisacodyl 10 mg suppository (DULCOLAX) 10 mg RECTAL DAILY PRN sodium chloride 0.65 % 2 Parker (AYR, OCEAN) 2 Parker EACH NOSTRIL PRN apixaban 2.5 mg tab(s) (ELIQUIS) 2.5 mg ORAL BID gabapentin 200 mg cap(s) (NEURONTIN) 200 mg ORAL BID ondansetron orally disintegrating 4 mg tab(s) (ZOFRAN ODT) 4 mg ORAL q 6 H PRN acetaminophen 650 mg tab(s) (TYLENOL) 650 mg ORAL q [address] 40 mg tab(s) (PROTONIX) 40 mg ORAL BID bacitracin 1 application topical ointment 1 application TOPICAL BID isosorbide mononitrate ER 60 mg tab(s) (IMDUR) 60 mg ORAL DAILY 0.9% NaCl 3-5 mL 3-5 mL INTRAVENOUS q 12 H dextrose 40 % 15 g 15 g ORAL PRN glucagon 1 mg injection (GLUCAGEN) 1 mg INTRAMUSCULAR PRN dextrose 50% in water 25 mL syringe 12.5 g INTRAVENOUS PRN miconazole 2 % 1 application topical powder (LOTRIMIN AF, DESENEX) 1 application TOPICAL BID Allergies As of Date: 01/27/2018 Allergen Noted Reaction ASPIRIN 01/20/2018 Other: See Comments BACTRIM [SULFAMETHOXAZOLE-TRIMETH*05/17/2017 Other: See Comments LATEX 05/17/2017 Rash and Itching PENICILLINS 07/14/2004 Rash and Itching TETRACYCLINE 09/29/2010 Rash and GI Upset ATORVASTATIN 05/17/2017 Rash CODEINE 05/17/2017 Other: See Comments DILAUDID [HYDROMORPHONE (BULK)] 05/17/2017 Mental Status Change MEPERIDINE 07/14/2004 PENTAZOCINE 07/14/2004 PIOGLITAZONE 05/17/2017 Unknown PROPOXYPHENE 07/14/2004 Fully Assessed 01/27/2018 COMPLETE REVIEW OF SYSTEMS: GENERAL: No weight loss, malaise or fevers RESPIRATORY: Negative for cough, hemoptysis, wheezing, COPD, dyspnea or shortness of breath CARDIOVASCULAR: Negative for chest pain, leg swelling, hypertension, CHF or palpitations GI: No nausea, vomiting, or diarrhea : No history of dysuria, frequency or incontinence MUSCULOSKELETAL: Negative for joint pain or swelling, back pain or muscle pain SKIN: Negative for lesions, rash, and itching HEMATOLOGY/LYMPHOLOGY: Negative for prolonged bleeding, bruising easily or swollen nodes ENDOCRINE: Negative for cold or heat intolerance, polyuria, polydipsia and goiter Objective PHYSICAL EXAM: Physical Exam Performed: GENERAL: Alert, no distress, cooperative, Obese EXTREMITIES: Extremities normal, no deformities, edema, clubbing or skin discoloration. Good capillary refill., no upper extremity edema Chest wall- left sided pacemaker BP 141/63 Pulse 96 Temp (Src) 97.2 (Axillary) Resp 20 Ht 5' 8 (1.73m) Wt 253 lb 8.5 oz (115.0kg) SpO2 98% BMI 38.56 kg/(m2). DATA: Diagnostic tests reviewed for today's visit: Most recent labs and imaging results. CBC: Recent Labs 02/11/18 0513 WBC 7.01 RBC 3.56* HB 10.6* HCT 34.0* PLT 209 MCV 95.5 MCH 29.8 MPV 9.8 Coags: No results for input(s): INR, APTT in the last 24 hours. Invalid input(s): PT BMP: Recent Labs 02/11/18 0513 NA 131* K 5.2* CHLOR 93* CO2 21* BUN 109* CREAT 3.32* GLUC 146* Impression/Recommendations Principal Problem: Chronic kidney disease -Will be available for tunneled catheter placement on Wednesday. Hold eliquis on Wednesday SIGNATURE: Michael Hogan DO PATIENT NAME: Luz Baca DATE: February 11, 2018 TIME: 8:13 PM PAGER: [phone] THERAPY NT Observed: 02/11/2018 Status: COMPLETED Source: [place] 5:34 PM [facility]IN[facility] OTHER CAMPUS REPOSITORY HNO ID: [id number] Author: Vaibhav (Pt) Martir Service: Physical Therapy Author Type: Physical Therapist Type: Therapy (PT/OT/Speech/Resp) Filed: 02/12/2018 11:43 AM Note Text: Physical Therapy Evaluation SERVICE DATE: 02/11/2018 SERVICE TIME: 1510 to 1540 ROOM: [place] [address] Recommended Discharge Disposition: Home PT Recommended Discharge Disposition Comments: With current acute illness, patient demonstrates decreased functional mobility indicating benefit of continued skilled therapy services post acute stay. Anticipated Discharge Needs: Physical Assist at Home;Supervision at Home Physical Assist at Home for: Transfers;Ambulation;Cleaning;Laundry;Meals;Medication Management;Stairs;Self Care;Shopping;Transportation;Wheelchair Mobility Supervision at Home due to: (safety) Recommended Discharge Equipment: No equipment needs anticipated PT Recommendations to Nursing: Ambulate with device;To bathroom;In halls;Transfer to/from chair;OOB for Meals;Sit at edge of bed;With assist of 1 person Device: Immobilizer;Wheeled Walker (gait belt) PT 6 Clicks Score: 18 Precautions/Activity Restrictions: Cardiac;Fall Risk;Lines/Tubes/Drains Isolation Type: None ASSESSMENT : Patient presents with chest AND BLE pain, BLE edema AND skin changes, decreased overall strength, standing balance, functional mobility and activity tolerance. Requires skilled PT for progressive therapeutic exercise, balance AND functional mobility training, instruction in edema reduction. AND pain control AND breathing techniques, energy conservation, skin care AND progressive activity to prevent further deficits. Multiple co-morbidities influence patient's functional level. Patient with supportive AND able daughter. Patient lives in 1 story accessible home. Recommending continued [facility] PT to assist in improving patient's self care AND functional abiltiies. Patient Disposition at Start of Session: Family Present (Sitting EOB) Patient Disposition at End of Session: OOB in Chair;Call Bear in Reach (Family present) Tolerance Limited By Fatigue;Pain;Physiologic Response (shortness of breath) Physical Therapy Problem List: Education Deficit;Edema;Pain;Safety Deficits;Impaired Self Care;Decreased Activity Tolerance;Decreased Range Of Motion;Decreased Strength;Functional Mobility Impairment;Balance Impaired;Decreased Skin Integrity Patient /Caregiver Goals: Go Home Goals for Plan of Care: Able to perform HEP with: Supervision (x20 reps sitting/supine BLE ex for funct motion AND stgth) Transfer supine to/from sit with: Supervision (safe technique) Transfer sit to/from stand with: Supervision (w/walker, safe technique) Ambulate with: Supervision (safe technique) Distance: x150' for basic home AND self care mobility Device: Wheeled Walker Ambulate up and down steps with: Minimal Assistance (safe technique) Number of steps: 2 Device: Cane Goal: Patient demonstrates min shortness of breath with above basic mobility, with improved activity tolerance Progress Toward Goals: Progressing as expected Rehab Potential: Good (for stated goals) PLAN: Treatment Frequency (times per week): 4 Current admission Treatment Interventions: Education;Self Care / Home Management;Energy Conservation Training;Joint Mobility;Strengthening;Functional Mobility Training;Balance Training;Neuromuscular Re-education;Edema Management;Pain Management Plan of Care developed with: Patient;Family;Caregiver TREATMENT INTERVENTIONS: Therapy Diagnosis: Reduced mobility-other;Muscle Weakness (generalized);General symptoms and signs-other Interventions Provided: Evaluation;Therapeutic Exercise (73786);Therapeutic Activity (11520);Gait Training (62484) $ Evaluation-Low (93333) Billed Units: 1 unit Therapeutic Exercise (66765) Treatment Minutes: 8 1 unit Skilled Intervention(s): Instruction in therapeutic exercise - to perform intermitt BLE active ex for funct stgthening Verbal and tactile cuing provided for correct exercise performance, breathing w/ exercise Education in benefits of general ex AND mobility Performe 10 reps active B ankle pumps, R/L LAQ, light manually resisted B hip abd/add, 5 reps sitting hip flexion. All performed in limited range due to edema AND weakness. Therapeutic Activity (15475) Treatment Minutes: 6 0 units Skilled Intervention(s): Instructed patient in supine to and from sit pushing with upper extremities to sit up Educated patient on benefits of intermittent position change, BLE elevation for edema reduction Education with paced activity, intermittent breathing breaks for recovery Educated patient on role of PT during acute stay Educated patient on PT POC and rationale for discharge recommendation of continued HHC PT Instructed patient AND PCNA in need for progressive activity, recommending amb to bathroom w/nsg assist AND walker rather than use of commode chair Instructed patient in use of call light for all OOB and mobility activities for safety in hospital setting Gait Training (96074) Treatment Minutes: 10 1 unit Skilled Intervention(s): Instruction in sit to stand technique with proper hand placement and body positioning at edge of bed/chair, Instruction in stand to sit technique with LE's touching chair/bed and reaching back for surface Instruction in correction of gait deviations - upright posture, forward gaze, breathing w/exertion Instruction in use of equipment, cues for sequence and pattern - gait belt, wheeled walker Requires short coached breathing break following amb due to shortness of breath Notified RN of patient status, performance, PT discharge recommendation. Total Timed Code Treatment Minutes: 24 Total Treatment Time (minutes): 30 FUNCTIONAL G CODE: PT 6 Clicks Score: 18 (02/11/18 151) Mobility: Walking and Moving Around Current Status (G8978): CK (02/11/18 151) Mobility: Walking and Moving Around Goal Status (G8979): CJ (02/11/181509) Based on clinical assessment and the score on the 6 Clicks Functional Assessment Tool, the G code and corresponding severity modifiers are documented above. SUBJECTIVE: Current Hospital Course: Chart reviewed; ROMÁN on CKD3, with dialysis being considered. Chronic elevated troponin levels. Reason for Physical Therapy Consult : PT eval AND treat for safety assessment Relevant Past Medical History: Presented with chest pain. Admitted w/elevated cardiac enzymes, CHF PMHx: hypertrophic obstructive cardiomyopathy, CAD/mult stents AND CABG, CHF, CKD, COPD, pacemaker, DMII, sleep apnea Patient Report: PCNA completing vital sign check. Patient agreeable to PT session. Daughter present, observed session AND involved with all instruction AND education provided. Daughter confirms ability to continue to provide needed assist. Home Environment Patient Lives With: Family (daughter) Assistance Available: 24 Hour Entry To Home: Stairs;Without Rail Number Of Stairs Into Home: 2 Number Of Stairs To Bed/Bath: 1st floor set up Tub/Shower Type: Tub shower combination Laundry: Daughter completes Equipment Owned: Commode-Bedside;Grab Bars-Shower;Cane;Wheeled Walker;Hospital Bed;Home Oxygen Prior Functional Level: Required Assistance Assistance Required With: Transportation;Shopping;Self Care;Safety;Meals;Laundry;Cleaning Prior Functional Level Comments: Requires assist PRN for ADLs, dtr completes IADLs, ambulates with wheeled walker, on 2-3 L of Home O2 OBJECTIVE: Range Of Motion: (BLE grossly 50-75% of full range, 0 B dflex) Strength: (BLE grossly 3-/5 knees/ankles) Quality of Movement: Bradykinetic Coordination Deficits: Finger opposition;Finger/foot tapping Finger Opposition Impairment: Bilateral (slow, deliberate) Finger/Foot Tapping Impairment: Bilateral (slow, deliberate) Alert, awake, follows 3 step commands w/ min cues On 3 L/min O2 via NC (see flow sheet for initial vital signs) Min shortness of breath with llimited ambulation 4+ edema BLE B feet purple discoloration, L skin shiny CURRENT FUNCTIONAL STATUS: Cuing provided for functional mobility as noted in above interventions. Current Functional Mobility Assist Level Additional Information Rolling Supine to Sit Minimal Assistance (w/mod elevated HOB, use of bed rail) Partial performance Sit to Supine Supervision (w/mod elevation HOB, use of bed rail) Partial performance Scooting Supervision Sit to Stand Minimal Assistance (w/walker, wide base) Stand to Sit Minimal Assistance (w/walker, wide base) Bed to Chair Toilet/Commode Gait Contact Guard Assistance Gait Device: Wheeled Walker (gait belt) Gait Distance (feet): x50' Stairs Curb Step Car Transfer General Gait Deviations: Jane decreased;Step length decreased;Flexed trunk posture;Wide base of support;Shuffling Gait;Difficulty changing direction/turning;Non-functional gait speed (slow, deliberate pace, shortness of breath) Balance: Static Sitting;Dynamic Sitting;Static Standing;Dynamic Standing Static Sitting Balance: Independent Dynamic Sitting Balance: Supervision Static Standing Balance: Stand By Assistance (w/walker, wide base) Dynamic Standing Balance: Minimal Assistance (w/walker, wide base) Please see discipline specific clinical documentation flowsheet for complete details for this therapy evaluation/treatment. SIGNATURE: Vaibhav Mcmahan PT PATIENT NAME: Luz Baca DATE: February 11, 2018 TIME: 5:34 PM PAGER/CONTACT #: [phone] CONSULT PROG Observed: 02/11/2018 Status: COMPLETED Source: [place] 4:02 PM [facility] OTHER CAMPUS REPOSITORY HNO ID: [id number] Author: Donnell Cruz Service: Pulmonary Disease Author Type: Physician Type: Consult Progress Note Filed: 02/11/2018 5:26 PM Note Text: [facility] [place], 02/11/2018: My partner Krishan Camp Rai, MD will be providing followup Pulmonary consultative coverage through Wednesday02/14/2018 AM, if needed. Donnell Cruz MD, [facility] [place] CASE MANAGEM Observed: 02/11/2018 Status: COMPLETED Source: [place] 3:36 PM [facility] REPOSITORY HNO ID: [id number] Author: Vanessa Loomis (Rn) ALLYSON Gonzalez Service: Case Management Author Type: Registered Nurse Type: Care Mgt Progress Note Filed: 02/11/2018 3:37 PM Note Text: CARE MANAGEMENT PROGRESS NOTE SERVICE DATE: 02/11/2018 SERVICE TIME: 3:36 PM LOS: 14 days EMR reviewed. Spoke to bedside ALLYSON Hopkins. Admit Dx chest pain. On 3L n/c today.Chronic 2.5 LO2 at home POSSIBLE WEEKEND DC PER MD. High Risk PCC Remi Olveran . From home with dtr. Chose [facility] NEED F2F, Dtr will transport. SIGNATURE: Vanessa Gonzalez RN PATIENT NAME: Luz Baca DATE: February 11, 2018 TIME: 3:36 PM PAGER/CONTACT #: [phone] NURSING PROG Observed: 02/11/2018 Status: COMPLETED Source: [place] 3:18 PM [facility] REPOSITORY HNO ID: [id number] Author: Dianna (Rn) ALLYSON Melton Service: Nursing Author Type: Registered Nurse Type: Nursing Progress Note Filed: 02/11/2018 6:42 PM Note Text: Nursing Progress Note Patient Name: Luz Baca Patient Location: [place] [id number] Daily Note:02/11 0700-Bedside report given. 0834-Patient is complaining of pain, medication given 0835- Dr Strickland paged. To hold BP medications. 0839-Authorization to hold from Dr Strickland 0934- Recheck pain. Down to 10. Patient resting in bed 1100-Patient would like information on dialysis, provided information 1200- Assessment done patient is more depressed that previous days, Education on the benefits of dialysis. 1400-Patient complaining of 04/26pain. Advised available to take medication in 40min. 1448-Gave pain medication. Still reporting 1735-Pagged Dr Strickland, realized she was gone for the day and then paged the hospitalist for pain medication 1830-Ok one time dose of 50mg tramadol. This note was completed by: Dianna Melton RN PROGRESS Observed: 02/11/2018 Status: COMPLETED Source: [place] 12:52 PM CLIN[facility] OTHER CAMPUS REPOSITORY HNO ID: [id number] Author: Russell Strickland Service: General Internal Medicine Author Type: Physician Type: Progress Notes Filed: 02/11/2018 12:59 PM Note Text: INTERNAL MEDICINE PROGRESS NOTE SERVICE DATE: 02/11/2018 SERVICE TIME: 1300 ADMITTING PHYSICIAN: Gloria Singer Subjective CHIEF COMPLAINT: sob Current Facility-Administered Medications: hydrocortisone 0.5 % cream TOPICAL BID ipratropium-albuterol 3 mL nebulizer solution (DUONEB) 3 mL INHALATION q 4 H PRN insulin lispro 12 Units injection (rapid acting) (HumaLOG) 12 Units SUBCUTANEOUS w MEALS insulin glargine 15 Units injection (long acting) (LANTUS) 15 Units SUBCUTANEOUS DAILY (8 AM) insulin glargine 33 Units injection (long acting) (LANTUS) 33 Units SUBCUTANEOUS AT BEDTIME LORazepam 1 mg injection (ATIVAN) 1 mg INTRAVENOUS q 6 H PRN insulin lispro injection (rapid acting) (HumaLOG) SUBCUTANEOUS AT BEDTIME amiodarone 200 mg tab(s) (PACERONE) 200 mg ORAL DAILY HYDROcodone 5 mg - acetaminophen 325 mg tablet (NORCO) 1 tablet ORAL q 6 H PRN melatonin 3 mg tab(s) 3 mg ORAL AT BEDTIME simvastatin 20 mg tab(s) (ZOCOR) 20 mg ORAL AT BEDTIME aluminum-magnesium hydroxide-simethicone 200-200-20 mg/5 mL 15 mL (MAALOX,MYLANTA,MAG-AL PLUS) 15 mL ORAL q 4 H PRN insulin lispro injection (rapid acting) (HumaLOG) SUBCUTANEOUS w MEALS carvedilol 3.125 mg tab(s) (COREG) 3.125 mg ORAL BID w MEALS cholecalciferol 1,000 Units tab(s) (VITAMIN D3) 1,000 Units ORAL DAILY allopurinol 100 mg tab(s) (ZYLOPRIM) 100 mg ORAL DAILY docusate sodium 100 mg cap(s) (COLACE) 100 mg ORAL BID polyethylene glycol 3350 17 g packet (MIRALAX, GLYCOLAX) 17 g ORAL DAILY bisacodyl 10 mg suppository (DULCOLAX) 10 mg RECTAL DAILY PRN sodium chloride 0.65 % 2 Parker (AYR, OCEAN) 2 Parker EACH NOSTRIL PRN apixaban 2.5 mg tab(s) (ELIQUIS) 2.5 mg ORAL BID gabapentin 200 mg cap(s) (NEURONTIN) 200 mg ORAL BID ondansetron orally disintegrating 4 mg tab(s) (ZOFRAN ODT) 4 mg ORAL q 6 H PRN acetaminophen 650 mg tab(s) (TYLENOL) 650 mg ORAL q [address] mg tab(s) (PROTONIX) 40 mg ORAL BID bacitracin 1 application topical ointment 1 application TOPICAL BID isosorbide mononitrate ER 60 mg tab(s) (IMDUR) 60 mg ORAL DAILY 0.9% NaCl 3-5 mL 3-5 mL INTRAVENOUS q 12 H dextrose 40 % 15 g 15 g ORAL PRN Or glucagon 1 mg injection (GLUCAGEN) 1 mg INTRAMUSCULAR PRN Or dextrose 50% in water 25 mL syringe 12.5 g INTRAVENOUS PRN miconazole 2 % 1 application topical powder (LOTRIMIN AF, DESENEX) 1 application TOPICAL BID INTERVAL HISTORY OF PRESENT ILLNESS: No f/c, no headaches or dizziness, no cp or palps, no cough Is sob, no n/v/d Objective PHYSICAL EXAM: Patient Vitals for the past 24 hrs: BP Temp Temp src Pulse Resp SpO2 Weight 02/11/18 1201 110/55 36.3 ?C (97.4 ?F) Oral (!) 51 22 97 % - 02/11/18 0809 (!) 91/43 36.3 ?C (97.4 ?F) Oral 60 22 95 % - 02/11/18 0600 - - - - - - 115 kg (253 lb 8.5 oz) 02/11/18 0337 105/67 36.6 ?C (97.9 ?F) Axillary 63 18 98 % - 02/11/184 - - - - 16 - - 02/10/18 2349 (!) 99/49 36.3 ?C (97.3 ?F) Axillary (!) 55 16 97 % - 02/10/189 - - - 60 18 98 % - 02/10/184 (!) 101/49 - - - - - - 02/10/182041 (!) 83/48 36.5 ?C (97.7 ?F) Axillary 61 18 97 % - 02/10/18 1550 115/71 36.3 ?C (97.3 ?F) Oral (!) 56 20 97 % - 02/10/18 1338 - - - - 18 - - 02/10/18 1326 - - - 77 18 97 % - Body mass index is 38.55 kg/(m2). GENERAL: Alert, no distress, cooperative SKIN: Skin color, texture, turgor normal. No rashes or lesions. OROPHARYNX: Lips, mucosa, and tongue are normal.Teeth and gums, normal. Oropharynx normal. NECK: No carotid bruits LUNGS: Lungs clear to auscultation. Good diaphragmatic excursion. CARDIAC: Normal S1 and S2; no rubs, murmurs, or gallops ABDOMEN: Abdomen soft, non-tender, BS normal, No masses or organomegaly EXTREMITIES: + 2 edema DATA: Diagnostic tests reviewed for today's visit: Most recent labs and imaging results. Assessment/Plan Principal Problem: Chest pain in adult POA: Yes Assessment AND Plan: trops have been stable and likely elevated due to ckd. Nl stress test 08/03 Current cp doesn't sound cardiac in nature and pt reports some chest pain ever since her defibrillator was moved. ? If pain more neuropathic or muscular. She is already on neurontin and reports side effects to lyrica Active Problems: Chronic combined systolic and diastolic CHF (congestive heart failure) (HCC) POA: Yes Assessment AND Plan: bnp had increased while admitted from 1300 to 2941 despite attempted diuresis. Cr has continued to rise with attempted diuresis. One dose iv lasix today. Pt is agreeable to dialysis now. ECHO ef 50%, grade 3 diastolic dysfunction and pulm HTN Atrial fibrillation (HCC) POA: Yes Assessment AND Plan: cont eliquis and pacerone Uncontrolled type 2 diabetes mellitus with stage 3 chronic kidney disease, with long-term current use of insulin (HCC) POA: Yes Assessment AND Plan: a1c 12, cont insulin, ssi as needed Essential hypertension POA: Yes Assessment AND Plan: cont home meds ROMÁN: appreciate renal input. Baseline Cr 1.5, 3.32 today. Plan for dialysis Hyperkalemia: on low K diet Resolved Problems: * No resolved hospital problems. * SIGNATURE: Russell Strickland MD PATIENT NAME: Luz Baca DATE: February 11, 2018 TIME: 12:53 PM PAGER/CONTACT #: [phone] CONSULT PROG Observed: 02/11/2018 Status: COMPLETED Source: [place] 9:34 AM [facility] OTHER CAMPUS REPOSITORY HNO ID: [id number] Author: Malena Bray Service: Nephrology Author Type: Physician Type: Consult Progress Note Filed: 02/11/2018 9:37 AM Note Text: Patient seen and examined. She is still unsure about whether she wants to pursue dialysis. Pulmonary note reviewed. No fevers or chills. Still SOB. Blood pressure (!) 91/43, pulse 60, temperature 36.6 ?C (97.9 ?F), temperature source Axillary, resp. rate 22, height 172.7 cm (5' 8), weight 115 kg (253 lb 8.5 oz), SpO2 95 %. Intake/Output Summary (Last 24 hours) at 02/11/18 0934 Last data filed at 02/11/18 0100 Gross per 24 hour Intake 600 ml Output 301 ml Net 299 ml Gen: weak Resp: diminished BS with poor AE CVS: no rub Abd: soft Ext:1+ edema K 5.2, Cr 3.32 Hb 10.6 Urine Na < 10, Up/c 0.1 Vit D 15, PTH 198 Renal US no obstruction Impression: 1. ROMÁN on CKD 3 due to diuresis of right > left CHF -poor renal perfusion suggested by low urine Na -Cr has worsened with each diuretic attempt but she remains volume overloaded 2. Edema multifactorial from right sided CHF and gabapentin 3. Hyperkalemia due to #1 4. Underlying CKD [address] partner [address] Martin 5. Hyperuricemia ? Plan: 1. One dose IV lasix today 2. She is considering her options for renal replacement therapy - will continue discussions over weekend. 3. Low K diet; no potassium supplementation 4. Added oral Vit D and recheck PTH/Vit D in 3 months 5. Decreased gabapentin to 200mg BID due to contribution to edema 6. Started allopurinol 100mg daily ? CBC Collected: 02/11/2018 Status: F Source: [place] 5:13 AM [facility] REPOSITORY TYPE CODE TESTS RESULT OUT OF REFERENCE UNITS RANGE LAB WBC 3.70-11.00 k/uL WBC 7.01 LAB RBC 3.90-5.20 m/uL Low RBC 3.56 LAB HGB 11.5-15.5 g/dL Low Hemoglobin 10.6 LAB HCT 36.0-46.0 % Low Hematocrit 34.0 LAB MCV 80.0-100.0 fL MCV 95.5 LAB MCH 26.0-34.0 pG MCH 29.8 LAB MCHC 30.5-36.0 g/dL MCHC 31.2 LAB RDWCV 11.5-15.0 % RDW-CV 14.9 LAB PLTCT 150-400 k/uL Platelet Count 209 LAB MPV 9.0-12.7 fL MPV 9.8 Performed By: #### CBC, CMP #### [facility] [address] [facility] [phone] COMP METABOLIC PANEL Collected: 02/11/2018 Status: F Source: [place] 5:13 AM [facility] REPOSITORY TYPE CODE TESTS RESULT OUT OF REFERENCE UNITS RANGE LAB TP 6.3-8.0 g/dL Protein, Total 6.5 LAB ALB 3.9-4.9 g/dL Low Albumin 3.3 LAB CA 8.5-10.2 mg/dL Calcium, Total 8.5 LAB TBIL 0.2-1.3 mg/dL Bilirubin, Total 0.4 LAB ALKP 32-117 U/L Alkaline Phosphatase 83 LAB AST 13-35 U/L AST 25 Result Comment: Results may be falsely increased due to interference by hemolysis. Suggest reorder as clinically indicated. LAB GLU 74-99 mg/dL High Glucose 146 Result Comment: The [place] [employer] (ADA) provides guidance for cutoff values for fasting glucose and random glucose. The ADA defines fasting as no caloric intake for at least 8 hours. Fas ting plasma glucose results between 100 to 125 mg/dL indicate increased risk for diabetes (prediabetes). Fasting plasma glucose results greater than or equal to 126 mg/dL meet the criteria for diagnosis of diabetes. In the absence of unequivocal hyperglycemia, results should be confirmed by repeat testing. In a patient with classic symptoms of hyperglycemia or hyperglycemic crisis, random plasma glucose results greater than or equal to 200 mg/dL meet the criteria for diagnosis of diabetes. Reference: Standards of Medical Care in Diabetes 2016, [place] [employer]. Diabetes Care. 2016.39(Suppl 1). LAB BUN 7-21 mg/dL BUN High 109 LAB CRET 0.58-0.96 mg/dL Creatinine High 3.32 LAB NA 136-144 mmol/L Low Sodium 131 LAB K 3.7-5.1 mmol/L Potassium High 5.2 Result Comment: Results may be falsely increased due to interference by hemolysis. Suggest reorder as clinically indicated. LAB CL 97-105 mmol/L Low Chloride 93 LAB CO2 22-30 mmol/L CO2 Low 21 LAB AGAP 9-18 mmol/L Anion Gap 17 LAB ALT 7-38 U/L ALT 16 LAB GFRAA eGFR- Amer. 16 LAB GFRNAA . eGFR-All Other Races 14 Result Comment: eGFR (Estimated GFR) Units of measure: mL/min/1.73 meters squared eGFR is derived from the reexpressed MDRD Study equation using the following parameters: serum creatinine, age, gender and race. The creatinine assay has been calibrated to be traceable to IDMS. An eGFR <60 mL/min/1.73m2 for >3 months is consistent with chronic kidney disease. Refer to KDOQI guidelines for clinical interpretation. In patients with unstable renal function, e.g. those with acute kidney injury, the eGFR may not accurately reflect actual GFR. Performed By: #### CBC, CMP #### [facility] [address] [facility] [phone] THERAPY NT Observed: 02/10/2018 Status: COMPLETED Source: [place] 4:26 PM CLINIC OTHER CAMPUS REPOSITORY HNO ID: [id number] Author: Judit Nolasco Service: Physical Therapy Author Type: Physical Therapist Type: Therapy (PT/OT/Speech/Resp) Filed: 02/10/2018 4:38 PM Note Text: PHYSICAL THERAPY MISSED VISIT SERVICE DATE: 02/10/2018 SERVICE TIME: 1415 to 1425 ROOM: [place] [address] Attempted Evaluation. Patient not seen due to Declined (states just received med and is very drowsy). Pt initially agreeable to PT eval and treat -- began evaluation, patient noted to be very drowsy with difficulty staying awake. Patient unable to answer home environment without closing eyes throughout. SPT notified PT. PT spoke with pt, patient declining further PT evaluation/treatment. RN notified. Plan to re-attempt as patient is appropriate and schedule permits. SIGNATURE: Verito Boggs, SPT PATIENT NAME: Luz Baca DATE: February 10, 2018 TIME: 4:26 PM PAGER/CONTACT #: I reviewed and agree with the assessment as documented above. SIGNATURE: Judit Nolasco, PT DATE: February 10, 2018 TIME: 4:38 PM CONSULT PROG Observed: 02/10/2018 Status: COMPLETED Source: [place] 4:24 PM CLINIC OTHER CAMPUS REPOSITORY O ID: [id number] Author: Malena Bray Service: Nephrology Author Type: Physician Type: Consult Progress Note Filed: 02/10/2018 4:30 PM Note Text: Patient seen and examined. Continues to feel very SOB. Weak. Appetite not great. I had long conversation regarding potential need for dialysis. She is considering her options. Blood pressure 115/71, pulse (!) 56, temperature 36.3 ?C (97.3 ?F), temperature source Oral, resp. rate 20, height 172.7 cm (5' 8), weight 114.5 kg (252 lb 6.4 oz), SpO2 97 %. Intake/Output Summary (Last 24 hours) at 02/10/18 1625 Last data filed at 02/10/18 1338 Gross per 24 hour Intake 840 ml Output 600 ml Net 240 ml Gen: weak Resp: diminished BS with improved/less wheezing CVS: no rub Abd: soft Ext: trace to 1+ edema K 5.5, Cr 3.26 Hb 10.1 Urine Na < 10, Up/c 0.1 Vit D 15, PTH 198 Renal US no obstruction Impression: 1. ROMÁN on CKD 3 due to diuresis of right > left CHF -poor renal perfusion suggested by low urine Na -Cr has worsened with each diuretic attempt but she remains volume overloaded 2. Edema multifactorial from right sided CHF and gabapentin 3. Hyperkalemia due to #1 4. Underlying CKD 3 followed [address] my partner Dr. Martin 5. Hyperuricemia ? Plan: 1. Hold diuretics 2. I discussed probable need for dialysis this admission - she is considering her options which I spoke with her at length. I will discuss again tomorrow AM and hope to come up with a plan going forwards. I have concerns that we won't be able to manage her volume status and azotemia - as per previous notes - It is very difficult to separate her SOB being a primary lung or cardiac/volume issue 3. Low K diet; no potassium supplementation 4. Added oral Vit D and recheck PTH/Vit D in 3 months 5. Decreased gabapentin to 200mg BID due to contribution to edema 6. Started allopurinol 100mg daily; recheck uric acid this week ? CONSULT PROG Observed: 02/10/2018 Status: COMPLETED Source: [place] 3:20 PM [facility] REPOSITORY O ID: [id number] Author: Donnell Cruz Service: Pulmonary Disease Author Type: Physician Type: Consult Progress Note Filed: 02/11/2018 9:58 AM Note Text: [facility] [place], 02/10/2018: I have reviewed the interval history and review of systems from the [facility] electronic medical record. Allergies and MAR reviewed today. DATA REVIEW: Component 01/26/2018 01/27/2018 02/08/2018 02/10/2018 Protein, Total 6.6 6.2 (L) Albumin 3.3 (L) 3.3 (L) Calcium 8.6 8.7 Bilirubin, Total 0.4 0.4 Alkaline Phosphatase 105 77 AST 19 12 (L) Glucose 423 (H) 152 (H) BUN 49 (H) 104 (H) Creatinine 1.56 (H) 3.26 (H) Sodium 138 131 (L) Potassium 4.7 5.5 (H) Chloride 96 (L) 94 (L) CO2 32 (H) 24 Anion Gap 10 13 ALT 26 14 eGFR-All Other Races 32 14 WBC 8.11 RBC 3.35 (L) Hemoglobin 10.1 (L) Hematocrit 32.0 (L) Hemoglobin A1C 12.0 (H) Estimated Average Glucose 298 NT Pro BNP 1303 (H) 2941 (H) IMPRESSION: 1. Acute/Chronic hypoxemic hypercarbic respiratory failure, due to the severe restrictive ventilatory impairment of obesity. NO evidence of obstructive ventilatory impairment on either 2003 or 2017 PFTs. 2. Acute/chronic cor pulmonale due to severe pulmonary hypertension, attributable to diastolic and segmental systolic LV dysfunction, causing chronic elevation in LVEDP. I cannot exclude contribution to elevation of pulmonary artery pressure from obesity-hypoventilation syndrome and non-compliance/intolerance of CPAP Rx prescribed for obstructive sleep apnea. 3. Acute kidney injury complicating chronic kidney disease; likely pre-renal; thought I doubt volume depletion with anasarca, weight record and I/O record. I suspect due to inadequate renal blood flow. ? RECOMMENDATIONS: 1. Dialysis and/or diuretic Rx, deferred to Jailer Chief and Hospitalist, as I/O record, weight gain in hospital and rising NT pro BNP consistent with volume overload/CHF. - Defer decision making to Hospitalist, Cardiology and Nephrology consultants. 2. Empiric use of AutoPAP rather than 5 cm CPAP during sleep; however, exact settings are arbitrary, as PAP titration not done, not on record. - Initial settings written, and can adjust based on clinical response and patient tolerance. - Definitive Diagnostic Polysomnogram and PAP titration needs done as outpatient once compensation. I spoke with daughter/DPOA for HC at bedside this afternoon, and advised her that I saw her mother's condition as terminal, and also communicated this Impression directly to Dr. Strickland as well. ? Donnell Cruz MD, [facility] [place] [address] P: [phone] F: [phone] THERAPY NT Observed: 02/10/2018 Status: COMPLETED Source: [place] 2:40 PM CLINIC OTHER CAMPUS REPOSITORY HNO ID: [id number] Author: Judit (Jacobo Nolasco Service: Physical Therapy Author Type: Physical Therapist Type: Therapy (PT/OT/Speech/Resp) Filed: 02/10/2018 2:42 PM Note Text: PHYSICAL THERAPY MISSED VISIT SERVICE DATE: 02/10/2018 SERVICE TIME: 1035 to 1039 ROOM: [place] [address] Attempted Evaluation. Patient not seen due to Declined (sitting sitting at EOB,states very EDMONDS at rest). Patient reports having had ambulated down umanzor yesterday with minimal EDMONDS (however similar to baseline), feeling more EDMONDS this date however. Per chart and conversation with RN, potassium elevated at 5.5 (however no planned intervention per MD). Patient also relates having chest pain and with consideration to all above is politely declining. Will re-attempt when schedule permits either later this date or tomorrow. RN notified of pt refusal and plan to return as able. SIGNATURE: Judit Nolasco, PT PATIENT NAME: Luz Baca DATE: February 10, 2018 TIME: 2:40 PM PAGER/CONTACT #: [phone] Observed: 02/10/2018 Status: COMPLETED Source: [place] 2:26 PM CLINIC OTHER CAMPUS REPOSITORY O ID: [id number] Author: Russell Strickland Service: General Internal Medicine Author Type: Physician Type: Progress Notes Filed: 02/10/2018 2:39 PM Note Text: INTERNAL MEDICINE PROGRESS NOTE SERVICE DATE: 02/10/2018 SERVICE TIME: 1430 ADMITTING PHYSICIAN: Gloria Singer Subjective CHIEF COMPLAINT: Chest pain Current Facility-Administered Medications: ipratropium-albuterol 3 mL nebulizer solution (DUONEB) 3 mL INHALATION q 4 H PRN insulin glargine 15 Units injection (long acting) (LANTUS) 15 Units SUBCUTANEOUS DAILY (8 AM) insulin glargine 33 Units injection (long acting) (LANTUS) 33 Units SUBCUTANEOUS AT BEDTIME LORazepam 1 mg injection (ATIVAN) 1 mg INTRAVENOUS q 6 H PRN insulin lispro injection (rapid acting) (HumaLOG) SUBCUTANEOUS AT BEDTIME amiodarone 200 mg tab(s) (PACERONE) 200 mg ORAL DAILY HYDROcodone 5 mg - acetaminophen 325 mg tablet (NORCO) 1 tablet ORAL q 6 H PRN melatonin 3 mg tab(s) 3 mg ORAL AT BEDTIME simvastatin 20 mg tab(s) (ZOCOR) 20 mg ORAL AT BEDTIME aluminum-magnesium hydroxide-simethicone 200-200-20 mg/5 mL 15 mL (MAALOX,MYLANTA,MAG-AL PLUS) 15 mL ORAL q 4 H PRN insulin lispro 7 Units injection (rapid acting) (HumaLOG) 7 Units SUBCUTANEOUS w MEALS insulin lispro injection (rapid acting) (HumaLOG) SUBCUTANEOUS w MEALS carvedilol 3.125 mg tab(s) (COREG) 3.125 mg ORAL BID w MEALS cholecalciferol 1,000 Units tab(s) (VITAMIN D3) 1,000 Units ORAL DAILY allopurinol 100 mg tab(s) (ZYLOPRIM) 100 mg ORAL DAILY docusate sodium 100 mg cap(s) (COLACE) 100 mg ORAL BID polyethylene glycol 3350 17 g packet (MIRALAX, GLYCOLAX) 17 g ORAL DAILY bisacodyl 10 mg suppository (DULCOLAX) 10 mg RECTAL DAILY PRN sodium chloride 0.65 % 2 Parker (AYR, OCEAN) 2 Parker EACH NOSTRIL PRN apixaban 2.5 mg tab(s) (ELIQUIS) 2.5 mg ORAL BID gabapentin 200 mg cap(s) (NEURONTIN) 200 mg ORAL BID ondansetron orally disintegrating 4 mg tab(s) (ZOFRAN ODT) 4 mg ORAL q 6 H PRN acetaminophen 650 mg tab(s) (TYLENOL) 650 mg ORAL q [address] 40 mg tab(s) (PROTONIX) 40 mg ORAL BID bacitracin 1 application topical ointment 1 application TOPICAL BID isosorbide mononitrate ER 60 mg tab(s) (IMDUR) 60 mg ORAL DAILY 0.9% NaCl 3-5 mL 3-5 mL INTRAVENOUS q 12 H dextrose 40 % 15 g 15 g ORAL PRN Or glucagon 1 mg injection (GLUCAGEN) 1 mg INTRAMUSCULAR PRN Or dextrose 50% in water 25 mL syringe 12.5 g INTRAVENOUS PRN miconazole 2 % 1 application topical powder (LOTRIMIN AF, DESENEX) 1 application TOPICAL BID INTERVAL HISTORY OF PRESENT ILLNESS: No f/c, no headaches or dizziness, no palps, no cough, some sob, no n/v/d c/o chest pain happen with rest and exertion, severe when occur, pt reports they have been occurring since she had her defib moved Objective PHYSICAL EXAM: Patient Vitals for the past 24 hrs: BP Temp Temp src Pulse Resp SpO2 Weight 02/10/18 1338 - - - - 18 - - 02/10/18 1326 - - - 77 18 97 % - 02/10/18 1141 - - - 72 - - - 02/10/18 1138 108/63 36.3 ?C (97.3 ?F) Oral (!) 47 18 99 % - 02/10/18 1045 117/52 - - 60 20 97 % - 02/10/18 0827 - - - - 18 - - 02/10/18 0824 - - - (!) 56 - - - 02/10/18 0813 - - - (!) 49 18 97 % - 02/10/18 0810 112/80 - - - 22 97 % - 02/10/18 0751 113/58 36.4 ?C (97.5 ?F) Oral (!) 57 18 97 % - 02/10/18 0600 - - - - - - 114.5 kg (252 lb 6.4 oz) 02/10/18 0434 114/54 36.6 ?C (97.9 ?F) Oral 63 18 96 % - 02/09/18 2349 125/52 36.4 ?C (97.5 ?F) Oral 119 20 98 % - 02/09/18 2133 - - - 68 22 - - 02/09/182121 - - - 62 24 98 % - 02/09/18 1948 100/63 36.6 ?C (97.9 ?F) Oral 88 18 96 % - 02/09/18 1550 137/59 36.5 ?C (97.7 ?F) Oral (!) 40 18 95 % - 02/09/18 1533 - - - (!) 40 16 - - 02/09/18 1521 - - - (!) 38 16 98 % - Body mass index is 38.38 kg/(m2). GENERAL: Alert, no distress, cooperative SKIN: Skin color, texture, turgor normal. No rashes or lesions. OROPHARYNX: Lips, mucosa, and tongue are normal.Teeth and gums, normal. Oropharynx normal. NECK: No carotid bruits LUNGS: Lungs clear to auscultation. Good diaphragmatic excursion. CARDIAC: Normal S1 and S2; no rubs, murmurs, or gallops ABDOMEN: Abdomen soft, non-tender, BS normal, No masses or organomegaly EXTREMITIES: Extremities normal, no deformities, edema, clubbing or skin discoloration. Good capillary refill. DATA: Diagnostic tests reviewed for today's visit: Most recent labs and imaging results. Assessment/Plan Principal Problem: Chest pain in adult POA: Yes Assessment AND Plan: trops have been stable and likely elevated due to ckd. Nl stress test 08/03 Current cp doesn't sound cardiac in nature and pt reports some chest pain ever since her defibrillator was moved. ? If pain is more neuropathic or muscular but she is already on neurontin Active Problems: Chronic combined systolic and diastolic CHF (congestive heart failure) (HCC) POA: Yes Assessment AND Plan: bnp has increased while admitted from 1300 to 2941 despite attempted diuresis. Cr also is steadily rising. Currently on po lasix after being on lasix gtt. Cardio and renal following ECHO ef 50% grade 3 diastolic dysfunction and pulm htn Atrial fibrillation (HCC) POA: Yes Assessment AND Plan: cont eliquis and pacerone Uncontrolled type 2 diabetes mellitus with stage 3 chronic kidney disease, with long-term current use of insulin (HCC) POA: Yes Assessment AND Plan: a1c 12, cont insulin, ssi as needed Essential hypertension POA: Yes Assessment AND Plan: stable ROMÁN: baseline Cr 1.5, currently 3.26 Hyperkalemia; on low K diet Resolved Problems: * No resolved hospital problems. * SIGNATURE: Russell Strickland MD PATIENT NAME: Luz Baca DATE: February 10, 2018 TIME: 2:26 PM PAGER/CONTACT #: [phone] THERAPY NT Observed: 02/10/2018 Status: COMPLETED Source: [place] 1:09 PM CLINIC OTHER CAMPUS REPOSITORY O ID: [id number] Author: Octavia Rivera/Magali Álvarez Service: Occupational Therapy Author Type: Occupational Therapist Type: Therapy (PT/OT/Speech/Resp) Filed: 02/10/2018 1:36 PM Note Text: Occupational Therapy Evaluation SERVICE DATE: 02/10/2018 SERVICE TIME: 1140 to 1230 ROOM: [place] [address] Recommended Discharge Disposition: Home OT Recommended Discharge Disposition Comments: to improve overall strength, endurance, provide education on ECWS, and ensure safety with ADLs and ADL transfers Anticipated Discharge Needs: Physical Assist at Home;Supervision at Home;Equipment Physical Assist at Home for: Transportation;Shopping;Self Care;Safety;Medication Management;Meals;Laundry;Cleaning Supervision at Home due to: Decreased safety awareness (Initially for safety) Recommended Discharge Equipment: Shower Chair OT Recommendations to Nursing: ADL?s in chair;To Bathroom for ADL?s /and or Toileting;OOB for meals;With assist of 1 person OT 6 Clicks Score: 20 Precautions/Activity Restrictions: Diabetic;Diet Restrictions;Fall Risk;Lines/Tubes/Drains ASSESSMENT: Pt presents with decreased activity tolerance, functional mobility, and general strength impacting ability to function without assist from caregivers. Pt demonstrates slightly decreased safety awareness. Currently Contact Guard Assistance for out of bed activity. Pt AANDO x 3. Pt participates during functional activities as able and is highly motivated to participate with therapy. Requires monitoring of vitals to ensure safety. Pt has very supportive daughter who assist with ADLs as needed. Pt would benefit from further skilled therapy to address above deficits for increased safety with functional activity as well as progress activities within safe limits . Pt would benefit from skilled OT for education for ECWS, and safety, would benefit from shower chair, and to increase Ind with ADLS and ADL transfers Patient Disposition at Start of Session: Family Present Patient Disposition at End of Session: OOB in Chair;Other: See Comment (RN bedside working with pt) Tolerated Full Session (with EDMONDS; monitored vitals WFL) Vital Signs Pre Assessment: O2 Equipment (Vitals monitored throughout, stayed WFL) Pre SpO2: 3 Occupational Therapy Problem List: Impaired Self Care;Decreased Activity Tolerance;Safety Deficits;Pain;Functional Mobility Impairment Patient /Caregiver Goals: Go Home Goals for Plan of Care: Able to perform HEP with: Modified Independent Grooming with: Supervision Upper Body Dressing with: Set Up Chair Transfer with: Stand By Assistance Toilet Transfer with: Stand By Assistance Tolerate (minutes of functional activity): 10 Functional Activity with: Stand By Assistance Home Management Skills with: Stand By Assistance Demonstrate Competence With Education with: Verbal Cues Only Rehab Potential: Good PLAN: Treatment Frequency (times per week): 3 Current admission Treatment Interventions: Education;Self Care / Home Management;Energy Conservation Training;Strengthening;Functional Mobility Training;Balance Training;Cognitive Training Plan of Care developed with: Patient TREATMENT INTERVENTIONS: Therapy Diagnosis: Decreased activities of daily living (ADL);Muscle Weakness (generalized);Unsteadiness on feet;General symptoms and signs-other;Signs and Symptoms Involving Cognitive Functions and Awareness Interventions Provided: Evaluation;Therapeutic Activity (47394);Self Retirement Management (33161) $ Evaluation-Low (75773) Billed Units: 1 unit Therapeutic Activity (32163) Treatment Minutes: 15 1 unit Skilled Intervention(s): Instructed, cued and facilitated pt in sit to stand technique with proper hand placement and body positioning at edge of bed. Instruction in stand to sit technique with lower extremities touching chair/bed and reaching back for surface. (Completed sit>stand x3 times during completion of self care tasks at EOB. ) Facilitated functional mobility to bathroom and back providing contact guard assist with wheeled walker. Facilitated transfer from bed to chair providing contact guard assist. Self Retirement Management (87861) Treatment Minutes: 25 2 units Skilled Intervention(s): Educated pt on OT role, POC, and progression of therapy services. Pt educated in importance of out of bed activity including active participation in daily care and sitting in chair for meals and throughout day for rehabilitation and to prevent functional decline. Initiated and facilitated self care tasks. Facilitated active participation in upper body dressing providing contact guard assist to kyle/doff gown. Facilitated active participation in upper body bathing providing contact guard assist, while seated at EOB. Facilitated active participation in lower body dressing providing supervision, to kyle slippers Facilitated active participation in lower body bathing providing contact guard assist, while standing at EOB. Facilitated active participation in grooming providing contact guard assist completing hand hygiene while standing at sink Educated pt on activity pacing: working at moderate, consistent rate and to avoid sudden bursts of energy Educated pt on importance of rest breaks and to not wait until you're tired for rest breaks. Educated pt on benefits of planning activities ahead of time and some work simplification techniques for home environment. Educated pt on energy conservations techniques to utilize during grooming, dressing, and home management and some adaptive equipment to increase independence in self care activities. Educated pt on pursed lip breathing to ensure safety throughout functional activity. Monitored pts vitals throughout, pt's vitals WNL. Total Timed Code Treatment Minutes: 40 Total Treatment Time (minutes): 50 FUNCTIONAL G CODE: OT 6 Clicks Score: 20 (02/10/18 1140) Self Care Current Status (G8987): CJ (02/10/18 1140) Self Care Goal Status (G8988): CJ (02/10/18 1140) Based on clinical assessment and the score on the 6 Clicks Functional Assessment Tool, the G code and corresponding severity modifiers are documented above. SUBJECTIVE: Current Hospital Course: Chart reviewed; 02/10/18: elevated K of 5.5: per chart MD Strickland, she is fine with pt's K being 5.5, no correction needed. Also discussed other labs out of normal range. Reason for Occupational Therapy Consult: Pt presenting with chest pain; OT consult: Safety assessment Relevant Past Medical History: Afib, CAD, CKD, COPD, DM, depression, HOCM, HTN, HLD Patient Report: Ok per RN to treat. Pt was agreeable to OT and was pleasant throughout. I can't describe the pain, it's dull. Pt with no signs/complaints of lightheadedness, dizziness, SOB, prior to mobility. Home Environment Patient Lives With: Family (Daughter) Assistance Available: 24 Hour Entry To Home: Stairs;Without Rail Number Of Stairs Into Home: 2 Number Of Stairs To Bed/Bath: 1st floor set up Tub/Shower Type: Tub shower combination Laundry: Daughter completes Equipment Owned: Commode-Bedside;Grab Bars-Shower;Cane;Wheeled Walker;Hospital Bed;Home Oxygen Prior Functional Level: Required Assistance Assistance Required With: Transportation;Shopping;Self Care;Safety;Meals;Laundry;Cleaning Prior Functional Level Comments: Requires assist PRN for ADLs, dtr completes IADLs, ambulates with wheeled walker, on 2-3 L of Home O2 OBJECTIVE: Responsiveness: Alert;Awake Follows Commands: 3-step Commands;Cueing Needed Cueing to Follow Commands: Minimum Executive Function Deficits: Safety Awareness Safety Awareness Deficit: Minimal impairment Vision Deficits: Wears glasses Short Blessed Final Score: 11 CURRENT FUNCTIONAL STATUS: Current Activities of Daily Living Assist Level Feeding Set Up (per clinical judgment) Grooming Contact Guard Assistance (hand hygiene at sink) Bathing Upper Body Contact Guard Assistance Bathing Lower Body Contact Guard Assistance Dressing Upper Body Contact Guard Assistance Dressing Lower Body Supervision (slip on slippers) Toileting Functional Mobility Assist Level Rolling Supine to Sit (Pt sitting at EOB upon arrival) Sit to Supine Scooting Sit to Stand Contact Guard Assistance Stand to Sit Contact Guard Assistance Bed to Chair Contact Guard Assistance Stand Pivot Toilet/Commode Functional Mobility Contact Guard Assistance Wheeled Walker Balance: Static Sitting;Dynamic Sitting;Static Standing;Dynamic Standing Static Sitting Balance: Supervision Dynamic Sitting Balance: Supervision Static Standing Balance: Stand By Assistance Dynamic Standing Balance: Contact Guard Assistance Please see discipline specific clinical documentation flowsheet for complete details for this therapy evaluation/treatment. SIGNATURE: LETICIA Cain/L PATIENT NAME: Luz Baca DATE: February 10, 2018 TIME: 1:12 PM PAGER: [phone] THERAPY NT Observed: 02/10/2018 Status: COMPLETED Source: [place] 11:01 AM [facility] OTHER [place] REPOSITORY HNO ID: [id number] Author: Octavia De La Rosar/Magali Álvarez Service: Occupational Therapy Author Type: Occupational Therapist Type: Therapy (PT/OT/Speech/Resp) Filed: 02/10/2018 11:01 AM Note Text: OCCUPATIONAL THERAPY MISSED VISIT SERVICE DATE: 02/10/2018 SERVICE TIME: 1100 to 1100 ROOM: [place] [address] Attempted Evaluation. Patient not seen due to Declined (RN exiting room, pt requesting to hold therapy at this time.) Will attempt as able. SIGNATURE: LETICIA Cain/Elver PATIENT NAME: Luz Baca DATE: February 10, 2018 TIME: 11:01 AM PAGER/CONTACT #:[phone] NURSING PROG Observed: 02/10/2018 Status: COMPLETED Source: [place] 7:25 AM [facility] REPOSITORY HNO ID: [id number] Author: Ella OsheaRnAlvarez Esquivel RN Service: Nursing Author Type: Registered Nurse Type: Nursing Progress Note Filed: 02/10/2018 10:06 AM Note Text: Event(s) / Intervention Note: The patient was observed having the following problems: elevated K of 5.5. Other labs also out of normal range. The time of the event occurred at: 0725. The following intervention(s) were initiated: no further intervention at this time, will continue to observe and check with patient. and Dr. Strickland/Hospitalist notified via pager [phone]. After the initiated interventions, the following observation(s) were made: patient has no complaints. and nothing further noted. Will continue to observe and check with patient.. 1000: Spoke with MD Strickland, she is fine with pt's K being 5.5, no correction needed. Also discussed other labs out of normal range. Ella Esquivel CBC Collected: 02/10/2018 Status: F Source: [place] 5:40 AM [facility] REPOSITORY TYPE CODE TESTS RESULT OUT OF REFERENCE UNITS RANGE LAB WBC 3.70-11.00 k/uL WBC 8.11 LAB RBC 3.90-5.20 m/uL Low RBC 3.35 LAB HGB 11.5-15.5 g/dL Low Hemoglobin 10.1 LAB HCT 36.0-46.0 % Low Hematocrit 32.0 LAB MCV 80.0-100.0 fL MCV 95.5 LAB MCH 26.0-34.0 pG MCH 30.1 LAB MCHC 30.5-36.0 g/dL MCHC 31.6 LAB RDWCV 11.5-15.0 % RDW-CV 14.6 LAB PLTCT 150-400 k/uL Platelet Count 180 LAB MPV 9.0-12.7 fL MPV 9.8 Performed By: #### CBC, CMP, URIC #### [facility] [address] [facility] [phone] COMP METABOLIC PANEL Collected: 02/10/2018 Status: F Source: [place] 5:40 AM [facility] OTHER [facility] REPOSITORY TYPE CODE TESTS RESULT OUT OF REFERENCE UNITS RANGE LAB TP 6.3-8.0 g/dL Low Protein, Total 6.2 LAB ALB 3.9-4.9 g/dL Low Albumin 3.3 LAB CA 8.5-10.2 mg/dL Calcium, Total 8.7 LAB TBIL 0.2-1.3 mg/dL Bilirubin, Total 0.4 LAB ALKP 32-117 U/L Alkaline Phosphatase 77 LAB AST 13-35 U/L Low AST 12 LAB GLU 74-99 mg/dL Glucose High 152 Result Comment: The [place] [employer] (ADA) provides guidance for cutoff values for fasting glucose and random glucose. The ADA defines fasting as no caloric intake for at least 8 hours. Fas ting plasma glucose results between 100 to 125 mg/dL indicate increased risk for diabetes (prediabetes). Fasting plasma glucose results greater than or equal to 126 mg/dL meet the criteria for diagnosis of diabetes. In the absence of unequivocal hyperglycemia, results should be confirmed by repeat testing. In a patient with classic symptoms of hyperglycemia or hyperglycemic crisis, random plasma glucose results greater than or equal to 200 mg/dL meet the criteria for diagnosis of diabetes. Reference: Standards of Medical Care in Diabetes 2016, [place] [employer]. Diabetes Care. 2016.39(Suppl 1). LAB BUN 7-21 mg/dL BUN High 104 LAB CRET 0.58-0.96 mg/dL Creatinine High 3.26 LAB NA 136-144 mmol/L Low Sodium 131 LAB K 3.7-5.1 mmol/L Potassium High 5.5 LAB CL 97-105 mmol/L Low Chloride 94 LAB CO2 22-30 mmol/L CO2 24 LAB AGAP 9-18 mmol/L Anion Gap 13 LAB ALT 7-38 U/L ALT 14 LAB GFRAA eGFR- Amer. 17 LAB GFRNAA . eGFR-All Other Races 14 Result Comment: eGFR (Estimated GFR) Units of measure: mL/min/1.73 meters squared eGFR is derived from the reexpressed MDRD Study equation using the following parameters: serum creatinine, age, gender and race. The creatinine assay has been calibrated to be traceable to IDMS. An eGFR <60 mL/min/1.73m2 for >3 months is consistent with chronic kidney disease. Refer to KDOQI guidelines for clinical interpretation. In patients with unstable renal function, e.g. those with acute kidney injury, the eGFR may not accurately reflect actual GFR. Performed By: #### CBC, CMP, URIC #### [facility] [address] [place] [address] URIC ACID Collected: 02/10/2018 Status: F Source: [place] 5:40 AM [facility] OTHER [facility] REPOSITORY TYPE CODE TESTS RESULT OUT OF RANGE REFERENCE UNITS LAB URIC 2.5-6.6 mg/dL High Uric Acid 14.9 Performed By: #### CBC, CMP, URIC #### [facility] [address] [place] [address] TSH Collected: 02/10/2018 Status: F Source: [place] 5:40 AM [facility] OTHER [place] REPOSITORY TYPE CODE TESTS RESULT OUT OF RANGE REFERENCE UNITS LAB TSH 0.400-5.500 uU/mL TSH 0.782 Performed By: #### TSH #### [facility] [address] [place], [place] [id number] T4 Collected: 02/10/2018 Status: F Source: [facility] 5:40 AM OTHER [place] REPOSITORY TYPE CODE TESTS RESULT OUT OF RANGE REFERENCE UNITS LAB T4 5.5-10.2 ug/dL Low T4 5.4 Performed By: #### T4 #### [facility] [address] [place], [place] [address] PROGRESS Observed: 02/09/2018 Status: COMPLETED Source: [place] 3:32 PM [facility] OTHER [facility] REPOSITORY HNO ID: [id number] Author: Russell Strickland Service: General Internal Medicine Author Type: Physician Type: Progress Notes Filed: 02/09/2018 3:41 PM Note Text: INTERNAL MEDICINE PROGRESS NOTE SERVICE DATE: 02/09/2018 SERVICE TIME: 1530 ADMITTING PHYSICIAN: Gloria Singer Subjective CHIEF COMPLAINT: sob Current Facility-Administered Medications: furosemide 80 mg tab(s) (LASIX) 80 mg ORAL BID 9a/5p LORazepam 1 mg injection (ATIVAN) 1 mg INTRAVENOUS q 6 H PRN ipratropium-albuterol 3 mL nebulizer solution (DUONEB) 3 mL INHALATION q 4 H while awake albuterol 2.5 mg /3 mL (0.083 %) 2.5 mg (PROVENTIL) 2.5 mg INHALATION q 4 H PRN methylPREDNISolone sod succinate(PF) 40 mg injection (Solu- MEDROL) 40 mg INTRAVENOUS q 12 H insulin lispro injection (rapid acting) (HumaLOG) SUBCUTANEOUS AT BEDTIME amiodarone 200 mg tab(s) (PACERONE) 200 mg ORAL DAILY HYDROcodone 5 mg - acetaminophen 325 mg tablet (NORCO) 1 tablet ORAL q 6 H PRN melatonin 3 mg tab(s) 3 mg ORAL AT BEDTIME simvastatin 20 mg tab(s) (ZOCOR) 20 mg ORAL AT BEDTIME aluminum-magnesium hydroxide-simethicone 200-200-20 mg/5 mL 15 mL (MAALOX,MYLANTA,MAG-AL PLUS) 15 mL ORAL q 4 H PRN insulin lispro 7 Units injection (rapid acting) (HumaLOG) 7 Units SUBCUTANEOUS w MEALS insulin lispro injection (rapid acting) (HumaLOG) SUBCUTANEOUS w MEALS carvedilol 3.125 mg tab(s) (COREG) 3.125 mg ORAL BID w MEALS cholecalciferol 1,000 Units tab(s) (VITAMIN D3) 1,000 Units ORAL DAILY allopurinol 100 mg tab(s) (ZYLOPRIM) 100 mg ORAL DAILY docusate sodium 100 mg cap(s) (COLACE) 100 mg ORAL BID polyethylene glycol 3350 17 g packet (MIRALAX, GLYCOLAX) 17 g ORAL DAILY bisacodyl 10 mg suppository (DULCOLAX) 10 mg RECTAL DAILY PRN sodium chloride 0.65 % 2 Parker (AYR, OCEAN) 2 Parker EACH NOSTRIL PRN apixaban 2.5 mg tab(s) (ELIQUIS) 2.5 mg ORAL BID gabapentin 200 mg cap(s) (NEURONTIN) 200 mg ORAL BID ondansetron orally disintegrating 4 mg tab(s) (ZOFRAN ODT) 4 mg ORAL q 6 H PRN acetaminophen 650 mg tab(s) (TYLENOL) 650 mg ORAL q 6 H PRN ipratropium-albuterol 3 mL nebulizer solution (DUONEB) 3 mL INHALATION q [address] 40 mg tab(s) (PROTONIX) 40 mg ORAL BID bacitracin 1 application topical ointment 1 application TOPICAL BID isosorbide mononitrate ER 60 mg tab(s) (IMDUR) 60 mg ORAL DAILY 0.9% NaCl 3-5 mL 3-5 mL INTRAVENOUS q 12 H dextrose 40 % 15 g 15 g ORAL PRN Or glucagon 1 mg injection (GLUCAGEN) 1 mg INTRAMUSCULAR PRN Or dextrose 50% in water 25 mL syringe 12.5 g INTRAVENOUS PRN miconazole 2 % 1 application topical powder (LOTRIMIN AF, DESENEX) 1 application TOPICAL BID INTERVAL HISTORY OF PRESENT ILLNESS: Doing better today, no f/c, no headaches or dizziness, no cp or palps No n/v/d, cough and sob Objective PHYSICAL EXAM: Patient Vitals for the past 24 hrs: BP Temp Temp src Pulse Resp SpO2 Weight 02/09/18 1521 - - - (!) 38 16 98 % - 02/09/18 1105 - - - 78 - - - 02/09/18 1103 120/57 36.7 ?C (98.1 ?F) Axillary (!) 38 18 96 % - 02/09/18 1046 - - - 78 16 - - 02/09/18 1024 - - - 75 16 97 % - 02/09/18 0720 - - - 60 - - - 02/09/18 0718 119/78 36.5 ?C (97.7 ?F) Oral (!) 50 16 96 % - 02/09/18 0640 - - - 60 16 - - 02/09/18 0630 - - - 62 18 97 % - 02/09/18 0600 - - - - - - 113.4 kg (249 lb 14.4 oz) 02/09/18 0442 115/53 36.6 ?C (97.9 ?F) Temporal Art 63 18 94 % - 02/09/18 0113 - - - 60 18 - - 02/09/18 0103 - - - (!) 59 18 96 % - 02/09/18 0009 110/53 36.3 ?C (97.3 ?F) Oral 70 20 94 % - 02/08/182005 - - - 76 18 92 % - 02/08/181999 - - - 77 - - - 02/08/18 195 (!) 122/47 36.6 ?C (97.8 ?F) Oral (!) 38 20 92 % - 02/08/18 1739 124/55 - - 99 - - - 02/08/18 1636 - - - (!) 58 20 93 % - Body mass index is 38 kg/(m2). GENERAL: Alert, no distress, cooperative SKIN: Skin color, texture, turgor normal. No rashes or lesions. OROPHARYNX: Lips, mucosa, and tongue are normal.Teeth and gums, normal. Oropharynx normal. NECK: No carotid bruits LUNGS: Lungs clear to auscultation. Good diaphragmatic excursion. CARDIAC: Normal S1 and S2; no rubs, murmurs, or gallops ABDOMEN: Abdomen soft, non-tender, BS normal, No masses or organomegaly EXTREMITIES: Extremities normal, no deformities, edema, clubbing or skin discoloration. Good capillary refill. DATA: Diagnostic tests reviewed for today's visit: Most recent labs and imaging results. Assessment/Plan Principal Problem: Chest pain in adult POA: Yes Assessment AND Plan: trops have been stable and likely elevated due to CKD. Nl stress test 08/03 Active Problems: Chronic combined systolic and diastolic CHF (congestive heart failure) (HCC) POA: Yes Assessment AND Plan: bnp has increased while admitted 1300 to 2941 despite attempted diuresis and Cr has increased with diuresis Currently on po lasix after being on lasix gtt. 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 * SIGNATURE: Russell Strickland MD PATIENT NAME: Luz Baca DATE: February 09, 2018 TIME: 3:33 PM PAGER/CONTACT #: [phone] CASE MANAGEM Observed: 02/09/2018 Status: COMPLETED Source: [place] 12:20 PM [facility] REPOSITORY HNO ID: [id number] Author: Vanessa Loomis (Rn) ALLYSON Gonzalez Service: Case Management Author Type: Registered Nurse Type: Care Mgt Progress Note Filed: 02/09/2018 12:21 PM Note Text: CARE MANAGEMENT PROGRESS NOTE SERVICE DATE: 02/09/2018 SERVICE TIME: 12:20 PM LOS: 12 days EMR reviewed. Spoke to Dr Strickland. NEED PT/OT notes, Possible SNF needs. POSSIBLE WEEKEND DC PER MD. High Risk PCC Remi Rehn On 3L n/c today Chronic 2.5 LO2 at home. From home with dtr. [facility] NEED F[facility]F, Dtr will transport. SIGNATURE: Vanessa Gonzalez RN PATIENT NAME: Luz Baca DATE: February 09, 2018 TIME: 12:20 PM PAGER/CONTACT #: [phone] CONSULT PROG Observed: 02/09/2018 Status: COMPLETED Source: [place] 12:02 PM [facility] REPOSITORY HNO ID: [id number] Author: Shruti Nair Service: Endocrinology Author Type: Physician Type: Consult Progress Note Filed: 02/09/2018 12:05 PM Note Text: DIABETES PROGRESS NOTE PATIENT NAME: Luz Baca SERVICE DATE: 02/09/2018 ASSESSMENT AND PLAN Ms. Baca is a 77 year old female with a 15?year history of Diabetes Mellitus Type 2 hyperglycemia?who was admitted on 01/27/2018 for chest pain. We are consulted for diabetes mgmt. ? Uncontrolled type 2 diabetes BG have been elevated due to steroid Currently on methylpred 40 mg BID increase Lantus 33?units QHS and 15 units QAM ? Continue humalog to7?units AC TID ? Continue ?Supplemental Sliding Scale: Humalog Program #2 AC ? ? Accuchecks: AC/HS ? notify endocrinology if BG < 80 or > 200 ? ? Interval HPI Increase dyspnea PO intake is good Preadmission insulin regimen: Lantus 50?units ?Q am and 36 units at HS Humalog 12?units ?TID and Q AC pen Sliding scale: One unit for every 25?mg/dL PAST MEDICAL HISTORY: PAST MEDICAL HISTORY Diagnosis Date - Arthritis - Atrial fibrillation ([facility]) - CAD (coronary artery disease) stents x9, defibrillator, CABG. Seeing Dr. Cardona - Cardiac defibrillator in place - Cardiomegaly - Carotid artery disease ([facility]) left - Chronic kidney disease (CKD) stage G3b/A2, moderately decreased glomerular filtration rate (GFR) between 30-44 mL/min/1.73 square meter and albuminuria creatinine ratio between 30-299 mg/g Dr. Martin - COPD (chronic obstructive pulmonary disease) ([facility]) Dr. Cruz - Depression - Diabetes ([facility]) - Diabetic neuropathy ([facility]) - Edema - GERD (gastroesophageal reflux disease) - Gout with hyperuricemia - HH (hiatus hernia) - HOCM (hypertrophic obstructive cardiomyopathy) ([facility]) S/P Septal Myectomy in 2003. Now with LVEF 50% and mod/severe pulm HTN. - HTN (hypertension) - Hyperlipidemia - Morbid obesity with BMI of 40.0-44.9, adult ([facility]) - Sleep apnea 2011 not on CPAP, unable to tolerate mask 02/2017 - SVT (supraventricular tachycardia) ([facility]) NSVT and questionable VT in 2003 post op CURRENT MEDICATION: Current Facility-Administered Medications: furosemide 80 mg tab(s) (LASIX) 80 mg ORAL BID 9a/5p Malena A Argekar 80 mg at 02/09/18 0856 LORazepam 1 mg injection (ATIVAN) 1 mg INTRAVENOUS q 6 H PRN Russell Baldi 1 mg at 02/08/18 1336 ipratropium-albuterol 3 mL nebulizer solution (DUONEB) 3 mL INHALATION q 4 H while awake Russell Baldi 3 mL at 02/09/18 1023 albuterol 2.5 mg /3 mL (0.083 %) 2.5 mg (PROVENTIL) 2.5 mg INHALATION q 4 H PRN Russell Baldi methylPREDNISolone sod succinate(PF) 40 mg injection (Solu- MEDROL) 40 mg INTRAVENOUS q 12 H Russell Baldi 40 mg at 02/09/18 0858 insulin glargine 12 Units injection (long acting) (LANTUS) 12 Units SUBCUTANEOUS DAILY (8 AM) Som Jodie 12 Units at 02/09/18 0855 insulin glargine 30 Units injection (long acting) (LANTUS) 30 Units SUBCUTANEOUS AT BEDTIME Som Jodie 30 Units at 02/08/18 210 insulin lispro injection (rapid acting) (HumaLOG) SUBCUTANEOUS AT BEDTIME Som Jodie 3 Units at 02/08/182103 amiodarone 200 mg tab(s) (PACERONE) 200 mg ORAL DAILY Qarab Ronal Darrell 200 mg at 02/09/18 08 HYDROcodone 5 mg - acetaminophen 325 mg tablet (NORCO) 1 tablet ORAL q 6 H PRN Radha Adams) Thuestad 1 tablet at 02/07/182236 melatonin 3 mg tab(s) 3 mg ORAL AT BEDTIME Caroline (Audio Production Engineer) Garcia 3 mg at 02/08/182103 simvastatin 20 mg tab(s) (ZOCOR) 20 mg ORAL AT BEDTIME Qarab Ronal Darrell 20 mg at 02/08/182103 aluminum-magnesium hydroxide-simethicone 200-200-20 mg/5 mL 15 mL (MAALOX,MYLANTA,MAG-AL PLUS) 15 mL ORAL q 4 H PRN Radha Adams) Thuestad insulin lispro 7 Units injection (rapid acting) (HumaLOG) 7 Units SUBCUTANEOUS w MEALS Shruti Hasan 7 Units at 02/09/18 0905 insulin lispro injection (rapid acting) (HumaLOG) SUBCUTANEOUS w MEALS Shruti Hasan 4 Units at 02/09/18 09 carvedilol 3.125 mg tab(s) (COREG) 3.125 mg ORAL BID w MEALS Qarab Ronal Darrell 3.125 mg at 02/09/18 08 cholecalciferol 1,000 Units tab(s) (VITAMIN D3) 1,000 Units ORAL DAILY Malena A Argekar 1,000 Units at 02/09/18 0857 allopurinol 100 mg tab(s) (ZYLOPRIM) 100 mg ORAL DAILY Malena A Argekar 100 mg at 02/09/18 0858 docusate sodium 100 mg cap(s) (COLACE) 100 mg ORAL BID Radha Admas) Thuestad 100 mg at 02/08/18 2104 polyethylene glycol 3350 17 g packet (MIRALAX, GLYCOLAX) 17 g ORAL DAILY Radha A Bryan) Thuestad 17 g at 02/02/18 1046 bisacodyl 10 mg suppository (DULCOLAX) 10 mg RECTAL DAILY PRN Radhaebonie Adams) Thuestad sodium chloride 0.65 % 2 Parker (AYR, OCEAN) 2 Parker EACH NOSTRIL PRN Zuhair Wick apixaban 2.5 mg tab(s) (ELIQUIS) 2.5 mg ORAL BID [place] Ebonie Adams) Thuestad 2.5 mg at 02/09/18 0858 gabapentin 200 mg cap(s) (NEURONTIN) 200 mg ORAL BID Malena A Argekar 200 mg at 02/09/18 0857 ondansetron orally disintegrating 4 mg tab(s) (ZOFRAN ODT) 4 mg ORAL q 6 H PRN Zuhair Wick 4 mg at 02/04/18 0835 acetaminophen 650 mg tab(s) (TYLENOL) 650 mg ORAL q 6 H PRN Shameer Khubber 650 mg at 02/07/18 1516 ipratropium-albuterol 3 mL nebulizer solution (DUONEB) 3 mL INHALATION q 4 H PRN Raymond (Gorge) Claire 3 mL at 02/09/[address] 40 mg tab(s) (PROTONIX) 40 mg ORAL BID Raymond (Gorge) Claire 40 mg at 02/09/18 1047 bacitracin 1 application topical ointment 1 application TOPICAL BID Raymond (Gorge) Claire 1 application at 02/09/18 0900 isosorbide mononitrate ER 60 mg tab(s) (IMDUR) 60 mg ORAL DAILY Raymond (Gorge) Claire 60 mg at 02/09/18 0857 0.9% NaCl 3-5 mL 3-5 mL INTRAVENOUS q 12 H Raymond (Gorge) Claire 5 mL at 02/09/18 0905 dextrose 40 % 15 g 15 g ORAL PRN Raymond (Gorge) Claire Or glucagon 1 mg injection (GLUCAGEN) 1 mg INTRAMUSCULAR PRN Raymond (Gorge) Claire Or dextrose 50% in water 25 mL syringe 12.5 g INTRAVENOUS PRN Raymond (Gorge) Claire miconazole 2 % 1 application topical powder (LOTRIMIN AF, DESENEX) 1 application TOPICAL BID Gloria Singer 1 application at 02/09/18 1049 CURRENT ALLERGIES: Allergies As of Date: 01/27/2018 Allergen Noted Reaction ASPIRIN 01/20/2018 Other: See Comments BACTRIM [SULFAMETHOXAZOLE-TRIMETH*05/17/2017 Other: See Comments LATEX 05/17/2017 Rash and Itching PENICILLINS 07/14/2004 Rash and Itching TETRACYCLINE 09/29/2010 Rash and GI Upset ATORVASTATIN 05/17/2017 Rash CODEINE 05/17/2017 Other: See Comments DILAUDID [HYDROMORPHONE (BULK)] 05/17/2017 Mental Status Change MEPERIDINE 07/14/2004 PENTAZOCINE 07/14/2004 PIOGLITAZONE 05/17/2017 Unknown PROPOXYPHENE 07/14/2004 Fully Assessed 01/27/2018 COMPLETE REVIEW OF SYSTEMS: General: no fever, chills or acute changes in weight in the last 6 months Skin: no rashes, pruritis or dry skin Cardiac: denies chest pain, heart palpitations or orthopnea Pulmonary: see HPI GI: denies nausea, vomiting, diarrhea or constipation Neuro: denies numbnes/tingling in hands or feet and denies seizures Musc: denies history of upper or lower extremity weakness Endocrine: denies polyuria, polydipsia, nocturia, blurry vision or excessive fatigue Hematology: Negative for anemia, easy bleeding and bruising. OBJECTIVE PHYSICAL EXAM: BP 120/57 Pulse 38 Temp 36.7 ?C (98.1 ?F) (Axillary) Resp 18 Ht 172.7 cm (5' 8) Wt 113.4 kg (249 lb 14.4 oz) SpO2 96% BMI 38 kg/m2 General: Well appearing, alert, in no acute distress, well- hydrated, well nourished. Skin: skin color, texture, turgor normal, no rashes or lesions. Heart: RRR without murmur, gallop, or rubs. No ectopy Pulmonary: Lungs clear to auscultation. No wheezing, rhonchi, rales Abdomen: soft, non-tender, positive bowel sounds Extremities: no edema, no calluses or ulcers present. DATA: Diagnostic tests reviewed for today: Recent Labs 02/09/18 1104 02/09/18 0722 02/08/18 2040 02/08/18 1713 02/08/18 1541 02/08/18 1213 02/08/18 0753 02/07/18 2107 02/07/18 1629 02/07/18 1554 02/07/18 1139 02/07/18 0830 02/07/18 0506 02/07/18 0442 02/06/18 2057 02/06/18 1630 02/06/18 1225 PCGLUCOSE 378* 232* 271* 149* 116* 82 89 156* 115* 58* 104* 125* 83 56* 97 141* 115* Glucose, Point of Care Date Value Ref Range Status 02/09/2018 378 (A) 74 - 99 mg/dL Final Comment: Meter ID:[id number] SIGNATURE: Shruti Nair MD DATE: February 09, 2018 CONSULT Observed: 02/09/2018 Status: COMPLETED Source: [place] 11:00 AM [facility] REPOSITORY HNO ID: [id number] Author: Donnell Cruz Service: Pulmonary Disease Author Type: Physician Type: Consults Filed: 02/10/2018 7:59 AM Note Text: [facility] [place] Consultation Note, 02/09/2018: Introduction: The patient is seen in consultation today for evaluation of COPD, pulmonary hypertension. This consultation is requested by Russell Strickland MD. A copy of this encounter will be made available as a report via [facility] electronic medical record to her Primary Care Physician, Jameson Kamara MD. HPI: I just couldn't breathe. Shortness of breath developed over weeks, and was associated with heaviness in the chest, lower extremity edema, orthopnea, non-productive cough; specifically without pleuritic chest pain, purulent sputum, hemoptysis, fever, rigors or wheezing. Initial Pulmonary clinic visit 11/12/2017, and re-assessed in Pulmonary clinic 01/07/2018. At 11/12/2017 visit, diagnoses of Claims consistent compliance with therapy prescribed at home. This is the [facility]th admission to [facility] 2018. PAST MEDICAL HISTORY Diagnosis Date - Arthritis - Atrial fibrillation (HCC) - CAD (coronary artery disease) stents x9, defibrillator, CABG. Seeing Dr. Cardona - Cardiac defibrillator in place - Cardiomegaly - Carotid artery disease (HCC) left - Chronic kidney disease (CKD) stage G3b/A2, moderately decreased glomerular filtration rate (GFR) between 30-44 mL/min/1.73 square meter and albuminuria creatinine ratio between 30-299 mg/g Dr. Martin - COPD (chronic obstructive pulmonary disease) ([facility]) Dr. Cruz - Depression - Diabetes ([facility]) - Diabetic neuropathy ([facility]) - Edema - GERD (gastroesophageal reflux disease) - Gout with hyperuricemia - HH (hiatus hernia) - HOCM (hypertrophic obstructive cardiomyopathy) ([facility]) S/P Septal Myectomy in 2003. Now with LVEF 50% and mod/severe pulm HTN. - HTN (hypertension) - Hyperlipidemia - Morbid obesity with BMI of 40.0-44.9, adult ([facility]) - Sleep apnea 2011 not on CPAP, unable to tolerate mask 02/2017 - SVT (supraventricular tachycardia) ([facility]) NSVT and questionable VT in 2003 post op PAST SURGICAL HISTORY Procedure Laterality Date - CHOLECYSTECTOMY HX - HEART SURGERY HX 07/18/2004 Septal myectomy and CABG x2 (DEBORAH-LAD, SVG-PDA). - HYSTERECTOMY HX - IANDD PERIANAL ABSCESS - PAST SURGICAL HISTORY OF left breast nodule removed - PAST SURGICAL HISTORY OF skin lesions removed FAMILY HISTORY Problem Relation Age of Onset - Hypertension Mother living at age 93, HTN - Heart Failure Mother [place] - Cancer Father age 71, lung cancer No Asthma, COPD. Social History Marital status: Spouse name: Years of education: Number of children: Social History Main Topics Smoking status: Former Smoker Packs/day: 2.50 Years: 43.00 Types: Cigarettes Start date: 1961 Quit date: 07/07/2004 Smokeless status: Never Used Alcohol use: No Drug use: No Other Topics Concern Caffeine Concern Yes Comment:coffee 1 cup daily Special Diet No Comment:Regular Exercise No Comment:no unable, due to SOB x several months. Social History Narrative Patient and daughter live together. Immunization History Administered Date(s) Administered Influenza Seasonal - High Dose - Age 65+ 10/27/2017 MEDICATIONS and ALLERGIES: Reviewed, updated and reconciled with the patient today, as noted in the medication and allergy sections of the encounter. ROS: Reviewed with patient, confirmed as documented by [facility]P, ED provider note and previously in record during admission. TO PHYSICAL EXAMINATION: Reviewed as documented in Flowsheet. Body mass index is 38.38 kg/(m2). I/O: +3221 mL since admission Weight: +9.3 Kg since admission Gen: No acute distress. Cooperative with examination. Obese. ENT: Sclerae clear. Nares clear. Oral hygeine good. Pharynx clear, but unable to visualize uvula. Resp: No stridor, accessory respiratory muscle use, supra- sternal or intercostal retractions. No crackles, wheezes, rubs. CV: Irregularly irregular rythm. Heart tones normal. Unable to visualize JVP, HJR. No carotid bruit. Radial pulses normal. Abd: Obese, protuberant, not distended. MSK: No kyphoscoliosis, joint deformities of the extremities. Ext: Warm and well perfused. Pitting edema of both lower legs. No clubbing, cyanosis, sclerodactyly, Raynaud's. Skin: No rash, eczema, urticaria, petechiae, telangiectasia. Lymph: Unable to appreciate adenopathy in neck, supra-clavicular fossae. Endo: Unable to appreciate goiter. No exophthalmos, onycholysis. Neuro: Mental status normal. Affect normal. Muscle strength symmetric. No tremor. DATA REVIEW: Component 01/20/2018 01/26/2018 01/27/2018 02/07/2018 02/08/2018 02/09/2018 pO2, Arterial 93.1 O2HB BG 94.5 RHb (Art) 3.5 Base Excess, Arterial -1.5 Bicarbonate, Arterial 24.1 pCO2, Arterial 47.5 (H) pH, Arterial 7.326 (L) Mode of O2 Delivery 2.5L CANNULA WBC 8.64 8.66 7.63 7.32 5.53 RBC 4.06 4.08 3.93 3.51 (L) 3.46 (L) Hemoglobin 12.5 12.5 12.1 10.7 (L) 10.5 (L) Hematocrit 38.8 39.7 38.6 34.4 (L) 33.6 (L) Platelet Count 138 (L) 154 165 182 177 Protein, Total 6.4 6.3 6.6 6.5 6.6 Albumin 3.3 (L) 3.1 (L) 3.3 (L) 3.3 (L) 3.4 (L) Calcium 8.9 8.6 8.6 8.5 8.4 (L) Bilirubin, Total 0.5 0.4 0.4 0.4 0.4 Alkaline Phosphatase 157 (H) 97 105 89 87 AST 13 22 19 18 14 Glucose 832 (H) 390 (H) 423 (H) 87 230 (H) BUN 38 (H) 45 (H) 49 (H) 85 (H) 94 (H) Creatinine 1.40 (H) 1.49 (H) 1.56 (H) 2.82 (H) 2.98 (H) Sodium 126 (L) 136 138 133 (L) 134 (L) Potassium 5.2 (H) 5.1 4.7 5.2 (H) 5.3 (H) Chloride 85 (L) 96 (L) 96 (L) 98 95 (L) CO2 31 (H) 26 32 (H) 24 25 Anion Gap 10 14 10 11 14 ALT 24 24 26 17 16 eGFR-All Other Races 37 34 32 16 15 Absolute nRBC <0.01 CK 49 MB 5.8 (H) NT Pro BNP 2145 (H) 1630 (H) 1303 (H) 2941 (H) MARIN High Sensitivity 55 (H) Component Rng AND Units 09/23/2010 2010 T4 5.0 - 11.0 ug/dL 9.4 Free Cortisol, Serum 1.14 . . . TSH 0.400 - 5.500 uU/mL 1.300 PFT 11/12/2017: Spirometry ? Ref Urban %Ref? FVC ?Liters ? ? ? 3.29 ?1.15 ?35 FEV1 ? ? ? Liters ? ? ?2.48 ?0.93 ?37 FEV1/FVC ? % ?0.75 ?0.80 XDC590% ? ?Sec ? ? ? 6.50 Diffusing Capacity DLCO ? ? 21.5 ?9.0 ? 42 DLCO/VA ? 4.01 ? ? ? 4.10 ?102 ? PFT 07/16/04: ? Spirometry ? Pred? ?Urban %Pred FVC ? ? 3.22 ? 2.37 ? ? 73 ? FEV 1 ? 2.52 ? 1.87 ? ? 74 ? Ratio ? 0.77 ? 0.79 ? ? ? 25-75% 2.39 ? 1.02 ? 1.65 ? 69 ? CXR 01/27/2018: IMPRESSION: 1. Lines, Tubes, and Devices: ?None 2. Lungs and Pleura: ?Left lower lung field again difficult to evaluate due to the size of the heart. ?There is be some persistence of prominent lung markings which could represent atelectasis scarring and/or infiltrate. 3. Cardiomediastinal silhouette: ?Moderate cardiomegaly noted. Pulmonary vascularity is unremarkable. 4. Other: ?Bony structures unremarkable. CXR 02/07/2018: IMPRESSION: Lines, tubes, and devices: ?Pacemaker wire in the right ventricle Lungs and pleura: ?Mild vascular prominence and indistinctness may indicate mild congestion. No obvious pleural effusions. Left base streaky densities probably subsegmental atelectasis and is not significantly changed. Cardiomediastinal silhouette: ?Moderately enlarged, stable I have personally and independently reviewed these CXR images and I concur with the findings as described. TO CT CHEST 12/10/2017: IMPRESSION: Linear densities RIGHT middle lobe and LEFT lung base consistent with atelectasis and/or fibrosis. ?Nonspecific groundglass airspace disease posterior RIGHT lower lobe base. ?Follow-up is recommended. Left pleural thickening with calcific a cyst. ?This may be due to remote hemothorax. Cardiomegaly I have personally and independently reviewed these chest CT images and note cardiomegaly, dilatation and wall thickening of the intra-thoracic esophagus. No evidence of emphysema, interstitial lung disease or mass. TO Echocardiogram 12/21/2017: LEFT VENTRICLE The left ventricle is normal in size. There is mild left ventricular hypertrophy. Left ventricular systolic function is mildly decreased. Grade III left ventricular diastolic dysfunction. Wall Motion: The basal anteroseptal segment is severely hypokinetic. All remaining scored segments are normal. RIGHT VENTRICLE The right ventricle is dilated. Right ventricular systolic function is mildly decreased. RV systolic tissue Doppler velocity is 8.0 cm/s. Estimated right ventricular systolic pressure is 78 mmHg consistent with moderately severe pulmonary hypertension. Estimated right atrial pressure is 10 mmHg. LEFT ATRIUM The left atrial cavity is moderately dilated. RIGHT ATRIUM The right atrial cavity is dilated. Inferior Vena Cava: The inferior vena cava appears normal measuring 2.5 cm. The vessel decreases less than 50 percent with inspiration. MITRAL VALVE The mitral valve leaflets are structurally normal. [place] mitral valve. There is trivial (trivial - 1+) mitral valve regurgitation. TRICUSPID VALVE [place] tricuspid valve. There is moderate (2+ - 3+) tricuspid valve regurgitation. AORTIC VALVE The aortic valve cusps are structurally normal. There is no aortic valve stenosis. ?There is no aortic valve regurgitation. Tricuspid aortic valve. PULMONIC VALVE The pulmonic valve was not seen or not interrogated. There is no pulmonic valve regurgitation. AORTA The visualized aorta is normal in size. Measurements - Sinus 3.1 cm. Mid ascending aorta 3.4 cm. INTERVENTRICULAR SEPTUM There is abnormal motion of the interventricular septum secondary to prior cardiac ?surgery. PERICARDIUM There is no pericardial effusion. CONCLUSIONS: - Technically difficult exam due to body habitus and COPD. - Exam indication: s/p myectomy - The left ventricle is normal in size. There is mild left ventricular hypertrophy. Left ventricular systolic function is mildly decreased. EF = 50 ? 5% (visual est.) Grade III left ventricular diastolic dysfunction. - The right ventricle is dilated. Right ventricular systolic function is mildly decreased. - The left atrial cavity is moderately dilated. - The right atrial cavity is dilated. - There is moderate (2+ - 3+) tricuspid valve regurgitation. - Estimated right ventricular systolic pressure is 78 mmHg consistent with moderately severe pulmonary hypertension. Estimated right atrial pressure is 10 mmHg. - Definity contrast could not be administered d/t unavailability of staff. - s/p myectomy: LVOT gradient at rest 6 mmHg, trivial-1+ MR. Patient unable to valsalva. - Exam was compared with the prior echocardiographic exam performed on 09/23/2010. LV function is normal on this study, and the patient appears to be in NSR (was in AF with RVR on prior study) Electronically signed by Jose C Yeung MD IMPRESSION: 1. Acute decompensation does NOT appear to be due to COPD exacerbation (no change in sputum or cough), and PFTs do NOT demonstrate obstructive ventilatory impairment. The PFTs DO demonstrate a 2003 mild and 2017 very severe restrictive ventilatory impairment with NORMAL DLCO/VA consistent with the mechanical effects of obesity. 2. Chronic hypoxemic hypercarbic respiratory failure, due to the severe restrictive ventilatory impairment of obesity. NO evidence of obstructive ventilatory impairment on either 2003 or 2017 PFTs. 3. Acute/chronic cor pulmonale due to severe pulmonary hypertension, attributable to diastolic and segmental systolic LV dysfunction, causing chronic elevation in LVEDP (as reflected by echocardiographic evidence of LA dilatation) and pulmonary venous hypertension). 2010 thyroid studies noted, but should be updated. I cannot exclude contribution to elevation of pulmonary artery pressure from obesity-hypoventilation syndrome and non-compliance/intolerance of CPAP Rx prescribed for obstructive sleep apnea. RECOMMENDATIONS: 1. I see no evidence for use of IV methyl-prednisolone, and recommend switching to oral prednsione and reducing tapering/eliminating quickly. 2. As 2003 and 2017 PFTs show NO airflow obstruction, I also doubt the benefit of scheduled Ipratropium/Albuterol via nebulizer. - Consider only as needed use. 3. Continue supplemental O2, targeting spO2 902% or more. - NC appears adequate by oximetry record and ABG. 4. Diuretic Rx appears prudent as I/O record, weight gain in hospital and rising NT pro BNP consistent with volume overload/CHF. - Defer decision making to Hospitalist, Cardiology and Nephrology consultants. 5. Empiric use of AutoPAP rather than 5 cm CPAP during sleep; however, exact settings are arbitrary, as PAP titration not done, not on record. - Initial settings written, and can adjust based on clinical response and patient tolerance. - Definitive Diagnostic Polysomnogram and PAP titration needs done as outpatient once compensation. 6. Severe obesity. Body Mass Index (BMI) of 38.38 at current weight of 252 pounds. Upper limit of normal BMI is 18.5-25, corresponding to a goal weight 120-165 pounds in an individual 5'8 tall. The patient is at least 87 pounds overweight. - Weight loss is critical. Consider referral to Weight Management program such as Weight Watchers. Age and cardiac disease would appear contraindications to Bariatric Surgery program. Donnell Cruz MD, [facility] [place] [id number] P: [phone] F: [phone] NURSING PROG Observed: 02/09/2018 Status: COMPLETED Source: [place] [address]:00 AM [facility] REPOSITORY HNO ID: [id number] Author: Reanna (Rn) ALLYSON Davalos Service: Nursing Author Type: Registered Nurse Type: Nursing Progress Note Filed: 02/09/2018 9:16 AM Note Text: Nursing Progress Note Patient Name: Luz Baca Patient Location: [place] [id number] Daily Note: Pt AANDO x 3, calm and cooperative. Pt sitting in bedside chair. 0900 Pt ate breakfast and medication administered. O2 at 3L/min NC with pulse ox 96% and reduced to 2L/min NC. This note was completed by: Reanna Davalos RN CONSULT PROG Observed: 02/09/2018 Status: COMPLETED Source: [place] 7:02 AM [facility] REPOSITORY HNO ID: [id number] Author: Malena Bray Service: Nephrology Author Type: Physician Type: Consult Progress Note Filed: 02/09/2018 7:05 AM Note Text: Patient seen and examined. She feels tired and weak. Breathing about the same. Lasix gtt was stopped yesterday due to rising Cr. Blood pressure 115/53, pulse 60, temperature 36.6 ?C (97.9 ?F), temperature source Temporal Artery, resp. rate 16, height 172.7 cm (5' 8), weight 113.4 kg (249 lb 14.4 oz), SpO2 97 %. Intake/Output Summary (Last 24 hours) at 02/09/18 0702 Last data filed at 02/09/18 0400 Gross per 24 hour Intake 510 ml Output 2550 ml Net -2040 ml Gen: weak Resp: diminished BS with improved/less wheezing CVS: no rub Abd: soft Ext: trace to 1+ edema K 5.3, Cr 2.98 Hb 10.5 Urine Na < 10, Up/c 0.1 Vit D 15, PTH 198 Renal US no obstruction Impression: 1. ROMÁN on CKD 3 due to diuresis of right > left CHF -poor renal perfusion suggested by low urine Na 2. Edema multifactorial from right sided CHF and gabapentin 3. Hyperkalemia due to #1 4. Underlying CKD 3 followed by my partner Dr. Martin 5. Hyperuricemia ? Plan: 1. Restart home diuretics lasix 80mg PO BID 2. If Cr continues to rise with worsening pulmonary situation, might need to consider GROUP TESTER (patient would only want this as a last resort) - I am not convinced that patient is that volume overloaded; I think this is a primary lung process 3. Low K diet; no potassium supplementation 4. Added oral Vit D and recheck PTH/Vit D in 3 months 5. Decreased gabapentin to 200mg BID due to contribution to edema 6. Started allopurinol 100mg daily; recheck uric acid this week ? CBC Collected: 02/09/2018 Status: F Source: [place] 5:03 AM [facility] OTHER CAMPUS REPOSITORY TYPE CODE TESTS RESULT OUT OF REFERENCE UNITS RANGE LAB WBC 3.70-11.00 k/uL WBC 5.53 LAB RBC 3.90-5.20 m/uL Low RBC 3.46 LAB HGB 11.5-15.5 g/dL Low Hemoglobin 10.5 LAB HCT 36.0-46.0 % Low Hematocrit 33.6 LAB MCV 80.0-100.0 fL MCV 97.1 LAB MCH 26.0-34.0 pG MCH 30.3 LAB MCHC 30.5-36.0 g/dL MCHC 31.3 LAB RDWCV 11.5-15.0 % RDW-CV 14.9 LAB PLTCT 150-400 k/uL Platelet Count 177 LAB MPV 9.0-12.7 fL MPV 9.8 Performed By: #### CBC, CMP #### [facility] [address] [facility] [phone] COMP METABOLIC PANEL Collected: 02/09/2018 Status: F Source: [place] 5:03 AM [facility] OTHER CAMPUS REPOSITORY TYPE CODE TESTS RESULT OUT OF REFERENCE UNITS RANGE LAB TP 6.3-8.0 g/dL Protein, Total 6.6 LAB ALB 3.9-4.9 g/dL Low Albumin 3.4 LAB CA 8.5-10.2 mg/dL Low Calcium, Total 8.4 LAB TBIL 0.2-1.3 mg/dL Bilirubin, Total 0.4 LAB ALKP 32-117 U/L Alkaline Phosphatase 87 LAB AST 13-35 U/L AST 14 LAB GLU 74-99 mg/dL Glucose High 230 Result Comment: The [place] [employer] (ADA) provides guidance for cutoff values for fasting glucose and random glucose. The ADA defines fasting as no caloric intake for at least 8 hours. Fas ting plasma glucose results between 100 to 125 mg/dL indicate increased risk for diabetes (prediabetes). Fasting plasma glucose results greater than or equal to 126 mg/dL meet the criteria for diagnosis of diabetes. In the absence of unequivocal hyperglycemia, results should be confirmed by repeat testing. In a patient with classic symptoms of hyperglycemia or hyperglycemic crisis, random plasma glucose results greater than or equal to 200 mg/dL meet the criteria for diagnosis of diabetes. Reference: Standards of Medical Care in Diabetes 2016, [place] [employer]. Diabetes Care. 2016.39(Suppl 1). LAB BUN 7-21 mg/dL BUN High 94 LAB CRET 0.58-0.96 mg/dL Creatinine High 2.98 LAB NA 136-144 mmol/L Low Sodium 134 LAB K 3.7-5.1 mmol/L Potassium High 5.3 LAB CL 97-105 mmol/L Low Chloride 95 LAB CO2 22-30 mmol/L CO2 25 LAB AGAP 9-18 mmol/L Anion Gap 14 LAB ALT 7-38 U/L ALT 16 LAB GFRAA eGFR- Amer. 19 LAB GFRNAA . eGFR-All Other Races 15 Result Comment: eGFR (Estimated GFR) Units of measure: mL/min/1.73 meters squared eGFR is derived from the reexpressed MDRD Study equation using the following parameters: serum creatinine, age, gender and race. The creatinine assay has been calibrated to be traceable to IDMS. An eGFR <60 mL/min/1.73m2 for >3 months is consistent with chronic kidney disease. Refer to KDOQI guidelines for clinical interpretation. In patients with unstable renal function, e.g. those with acute kidney injury, the eGFR may not accurately reflect actual GFR. Performed By: #### CBC, CMP #### [facility] [address] [facility] [phone] NURSING PROG Observed: 02/08/2018 Status: COMPLETED Source: [place] 8:48 PM [facility] OTHER [facility]AMPUS REPOSITORY O ID: [id number] Author: Sohail OsheaRn) ALLYSON Hernandez Service: (none) Author Type: Registered Nurse Type: Nursing Progress Note Filed: 02/09/2018 6:09 AM Note Text: Nursing Progress Note Patient Name: Luz Baca [place] [facility] [id number] Daily Note:02/08/182047 Spoke with Dr. Feliciano regarding pt blood sugar, orders received, see eMAR [id number] Text paged hospitalist regarding AM labs This note was completed by: Sohail Hernandez RN PLAN OF CARE Observed: 02/08/2018 Status: COMPLETED Source: [place] 5:42 PM [facility] OTHER [facility]AMP[facility] REPOSITORY HNO ID: [id number] Author: Som Feliciano Service: Endocrinology Author Type: Physician Type: Plan of Care Filed: 02/08/2018 5:45 PM Note Text: Component Latest Ref Rng AND Units 02/07/2018 02/07/2018 02/07/2018 02/07/2018 02/07/2018 02/08/2018 02/08/2018 02/08/2018 02/08/2018 8:30 AM 11:39 AM 3:54 PM 4:29 PM 9:07 PM 7:53 AM 12:13 PM 3:41 PM 5:13 PM Glucose, Point of Care 74 - 99 mg/dL 125 (A) 104 (A) 58 (A) 115 (A) 156 (A) 89 82 116 (A) 149 (A) Impression: Uncontrolled type 2 diabetes with complications on insulin: Developing hypoglycemic episodes on current dose up insulin. Plan: Go down on bedtime Lantus dose to 30 units and go down on morning dose up Lantus to 12 units. Monitor blood sugar before each meal and at bedtime. Call Endo ux information architect if blood sugar is less than 80 or more than 210. We will follow. Som Feliciano MD February 08, 2018 CONSULT PROG Observed: 02/08/2018 Status: COMPLETED Source: [place] 3:47 PM [facility] OTHER [facility]AMP[facility] REPOSITORY HNO ID: [id number] Author: Jordi Cevallos Service: Nephrology Author Type: Physician Type: Consult Progress Note Filed: 02/08/2018 4:00 PM Note Text: INPATIENT CONSULT PROGRESS NOTES Patient Name: Luz Baca DATE of SERVICE: February 08, 2018 TIME of SERVICE: 3:48 PM CONSULTING SERVICE: Nephrology REASON FOR VISIT: ROMÁN on CKD Stage 3 CC: sleepy SUBJECTIVE: Pt was given ativan for anxiety and now she is sleepy. ABG shows mild co2 retention. She is on nasal canula. Her lasix drip was discontinued. Her renal function is slightly worse. ROS: no headache, no nausea, no vomiting, no diarrhea, no abdominal pain, no palpitations, no chest pain MEDICATIONS: reviewed PHYSICAL EXAM: Patient Vitals for the past 8 hrs: BP Temp Temp src Pulse Resp SpO2 02/08/18 1531 103/67 36.4 ?C (97.5 ?F) Oral (!) 59 18 96 % 02/08/18 1145 104/53 36.5 ?C (97.7 ?F) Oral 64 20 95 % 02/08/18 0857 - - - - - 97 % 02/08/18 0751 110/61 36.2 ?C (97.2 ?F) Temporal Art 66 20 96 % Body mass index is 37.85 kg/(m2). GENERAL: ?Obese,?no distress, sleepy LUNGS: Decreased air entry, no crackles CARDIAC: Normal S1 and S2; no rubs, murmurs, or gallops ABDOMEN: Abdomen soft, non-tender. BS normal. EXTREMITIES: mild bilateral lower ext?edema Intake/Output Summary (Last 24 hours) at 02/08/18 1548 Last data filed at 02/08/18 1255 Gross per 24 hour Intake 791 ml Output 1950 ml Net -1159 ml DATA: Labs and images reviewed CBC, Coags, BMP, Mg, Phos Recent Labs 02/08/18 0418 02/07/18 0518 02/06/18 0516 WBC 6.97 7.32 6.22 HB 10.6* 10.7* 10.4* HCT 34.0* 34.4* 33.6* PLT 176 182 153 NA 135* 133* 134* K 4.7 5.2* 5.6* CHLOR 98 98 97 CO2 24 24 24 BUN 90* 85* 79* CREAT 2.87* 2.82* 2.47* GLUC 131* 87 123* CA 8.9 8.5 8.9 ASSESSMENT: 1. ROMÁN: Creatinine around the same as yesterday. It is however worse than her baseline. This is due to necessary diuresis. She was on lasix drip which was stopped earlier today 2. Hyperkalemia: k at 4.7. Improved with better diuresis and low k diet. 3. Fluid overload: slight improvement in urine output with iv lasix drip. It has been discontinued. she has right sided heart failure with moderate to severe pulmonary hypertension but likely intravascularly depleted. EF of 50%. 4. CKD Stage 3: baseline creatinine is mid 1 range. [place] urine with no significant proteinuria ?? PLAN: ?? 1. Agree with stopping lasix infusion ,close monitoring of renal function and output 2. Will need to accept some degree of azotemia given the fluid overload 3. Serial renal panel 4. Overall prognosis is poor in the setting of pulmonary hypertension and ROMÁN Will continue to follow the patient during the hospital stay. SIGNATURE: Jordi Cevallos MD DATE: February 08, 2018 TIME: 3:48 PM TROPONIN T Collected: 02/08/2018 Status: F Source: [place] 2:14 PM [facility] OTHER [place] REPOSITORY TYPE CODE TESTS RESULT OUT OF REFERENCE UNITS RANGE LAB TROPT 0.000-0.029 ng/mL High Troponin T 0.063 Result Comment: Called to and read back by: Brian Almonte [address] [place] [address] 02/08/18 Myla Kramer Performed By: #### MARIN #### [facility] [address] [place] [address] NT PRO BNP Collected: 02/08/2018 Status: F Source: [place] 2:14 PM [facility] OTHER [place] REPOSITORY TYPE CODE TESTS RESULT OUT OF REFERENCE UNITS RANGE LAB PBNP <450 pg/mL High PRO B Natr 2941 Peptide Performed By: #### NTBNP #### [facility] [address] [place] [address] PROGRESS Observed: 02/08/2018 Status: COMPLETED Source: [place] 1:27 PM [facility] OTHER [facility]AMPUS REPOSITORY HNO ID: [id number] Author: Russell Strickland Service: General Internal Medicine Author Type: Physician Type: Progress Notes Filed: 02/08/2018 2:45 PM Note Text: INTERNAL MEDICINE PROGRESS NOTE SERVICE DATE: 02/08/2018 SERVICE TIME: 1330 ADMITTING PHYSICIAN: Gloria Singer Subjective CHIEF COMPLAINT: sob Current Facility-Administered Medications: LORazepam 1 mg injection (ATIVAN) 1 mg INTRAVENOUS q 6 H PRN ipratropium-albuterol 3 mL nebulizer solution (DUONEB) 3 mL INHALATION q 4 H while awake albuterol 2.5 mg /3 mL (0.083 %) 2.5 mg (PROVENTIL) 2.5 mg INHALATION q 4 H PRN methylPREDNISolone sod succinate(PF) 40 mg injection (Solu- MEDROL) 40 mg INTRAVENOUS q 12 H insulin glargine 22 Units injection (long acting) (LANTUS) 22 Units SUBCUTANEOUS DAILY (8 AM) insulin glargine 35 Units injection (long acting) (LANTUS) 35 Units SUBCUTANEOUS AT BEDTIME amiodarone 200 mg tab(s) (PACERONE) 200 mg ORAL DAILY HYDROcodone 5 mg - acetaminophen 325 mg tablet (NORCO) 1 tablet ORAL q 6 H PRN melatonin 3 mg tab(s) 3 mg ORAL AT BEDTIME simvastatin 20 mg tab(s) (ZOCOR) 20 mg ORAL AT BEDTIME aluminum-magnesium hydroxide-simethicone 200-200-20 mg/5 mL 15 mL (MAALOX,MYLANTA,MAG-AL PLUS) 15 mL ORAL q 4 H PRN insulin lispro 7 Units injection (rapid acting) (HumaLOG) 7 Units SUBCUTANEOUS w MEALS insulin lispro injection (rapid acting) (HumaLOG) SUBCUTANEOUS w MEALS carvedilol 3.125 mg tab(s) (COREG) 3.125 mg ORAL BID w MEALS cholecalciferol 1,000 Units tab(s) (VITAMIN D3) 1,000 Units ORAL DAILY allopurinol 100 mg tab(s) (ZYLOPRIM) 100 mg ORAL DAILY docusate sodium 100 mg cap(s) (COLACE) 100 mg ORAL BID polyethylene glycol 3350 17 g packet (MIRALAX, GLYCOLAX) 17 g ORAL DAILY bisacodyl 10 mg suppository (DULCOLAX) 10 mg RECTAL DAILY PRN sodium chloride 0.65 % 2 Parker (AYR, OCEAN) 2 Parker EACH NOSTRIL PRN apixaban 2.5 mg tab(s) (ELIQUIS) 2.5 mg ORAL BID gabapentin 200 mg cap(s) (NEURONTIN) 200 mg ORAL BID ondansetron orally disintegrating 4 mg tab(s) (ZOFRAN ODT) 4 mg ORAL q 6 H PRN acetaminophen 650 mg tab(s) (TYLENOL) 650 mg ORAL q 6 H PRN ipratropium-albuterol 3 mL nebulizer solution (DUONEB) 3 mL INHALATION q [address] 40 mg tab(s) (PROTONIX) 40 mg ORAL BID bacitracin 1 application topical ointment 1 application TOPICAL BID isosorbide mononitrate ER 60 mg tab(s) (IMDUR) 60 mg ORAL DAILY 0.9% NaCl 3-5 mL 3-5 mL INTRAVENOUS q 12 H dextrose 40 % 15 g 15 g ORAL PRN Or glucagon 1 mg injection (GLUCAGEN) 1 mg INTRAMUSCULAR PRN Or dextrose 50% in water 25 mL syringe 12.5 g INTRAVENOUS PRN miconazole 2 % 1 application topical powder (LOTRIMIN AF, DESENEX) 1 application TOPICAL BID INTERVAL HISTORY OF PRESENT ILLNESS: No f/c, no headaches or dizziness, no n/v/d but pt has a very poor appetite She states she feels smothered when she is eating. Has chest pain, worse with touching it and with inspiration Increased sob after going to restroom this afternoon. No cough, no palps Objective PHYSICAL EXAM: Patient Vitals for the past 24 hrs: BP Temp Temp src Pulse Resp SpO2 Weight 02/08/18 1145 104/53 36.5 ?C (97.7 ?F) Oral 64 20 95 % - 02/08/18 0857 - - - - - 97 % - 02/08/18 0751 110/61 36.2 ?C (97.2 ?F) Temporal Art 66 20 96 % - 02/08/18 0600 - - - - - - 112.9 kg (248 lb 14.4 oz) 02/08/18 0505 110/79 36.4 ?C (97.6 ?F) Temporal Art 69 18 95 % - 02/08/18 0014 - 36.6 ?C (97.9 ?F) Temporal Art 67 18 - - 02/08/18 0010 118/92 - - 67 18 93 % - 02/08/18 0001 - - - 67 20 93 % - 02/07/187 - - - - 18 - - 02/07/181952 115/75 (!) 35.7 ?C (96.2 ?F) Oral (!) 59 18 98 % - 02/07/18 1828 - - - (!) 52 20 - - 02/07/18 1817 - - - (!) 53 24 96 % - 02/07/18 1525 94/50 (!) 35.6 ?C (96.1 ?F) Temporal Art 60 16 99 % - Body mass index is 37.85 kg/(m2). GENERAL: Alert, no distress, cooperative SKIN: Skin color, texture, turgor normal. No rashes or lesions. OROPHARYNX: Lips, mucosa, and tongue are normal.Teeth and gums, normal. Oropharynx normal. NECK: No carotid bruits LUNGS: Lungs clear to auscultation. Good diaphragmatic excursion. CARDIAC: Normal S1 and S2; no rubs, murmurs, or gallops ABDOMEN: Abdomen soft, non-tender, BS normal, No masses or organomegaly EXTREMITIES: Extremities normal, no deformities, edema, clubbing or skin discoloration. Good capillary refill., No ulcers DATA: Diagnostic tests reviewed for today's visit: Most recent labs and imaging results. Assessment/Plan Principal Problem: Chest pain in adult POA: Yes Assessment AND Plan: trops have been stable and likely elevated due to CKD Nl stress test 08/03 Pain is reproducible and worse with inspiration, try steroids Active Problems: Chronic combined systolic and diastolic CHF (congestive heart failure) (HCC) POA: Yes Assessment AND Plan: bnp 1300 which is not as high as other admits, stop lasix gtt today since Cr increasing. ECHO ef 50%, grade 3 diastolic dysfunction and pulm HTN. 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 * SIGNATURE: Russell Strickland MD PATIENT NAME: Luz Baca DATE: February 08, 2018 TIME: 1:27 PM PAGER/CONTACT #: [phone] CBC Collected: 02/08/2018 Status: F Source: [place] 4:18 AM [facility] OTHER CAMPUS REPOSITORY TYPE CODE TESTS RESULT OUT OF REFERENCE UNITS RANGE LAB WBC 3.70-11.00 k/uL WBC 6.97 LAB RBC 3.90-5.20 m/uL Low RBC 3.51 LAB HGB 11.5-15.5 g/dL Low Hemoglobin 10.6 LAB HCT 36.0-46.0 % Low Hematocrit 34.0 LAB MCV 80.0-100.0 fL MCV 96.9 LAB MCH 26.0-34.0 pG MCH 30.2 LAB MCHC 30.5-36.0 g/dL MCHC 31.2 LAB RDWCV 11.5-15.0 % RDW-CV 15.0 LAB PLTCT 150-400 k/uL Platelet Count 176 LAB MPV 9.0-12.7 fL MPV 9.9 Performed By: #### CBC, CMP #### [facility] [address] [place] [address] COMP METABOLIC PANEL Collected: 02/08/2018 Status: F Source: [place] 4:18 AM [facility] OTHER [place] REPOSITORY TYPE CODE TESTS RESULT OUT OF REFERENCE UNITS RANGE LAB TP 6.3-8.0 g/dL Protein, Total 6.5 LAB ALB 3.9-4.9 g/dL Low Albumin 3.3 LAB CA 8.5-10.2 mg/dL Calcium, Total 8.9 LAB TBIL 0.2-1.3 mg/dL Bilirubin, Total 0.4 LAB ALKP 32-117 U/L Alkaline Phosphatase 89 LAB AST 13-35 U/L AST 17 LAB GLU 74-99 mg/dL Glucose High 131 Result Comment: The [place] [employer] (ADA) provides guidance for cutoff values for fasting glucose and random glucose. The ADA defines fasting as no caloric intake for at least 8 hours. Fas ting plasma glucose results between 100 to 125 mg/dL indicate increased risk for diabetes (prediabetes). Fasting plasma glucose results greater than or equal to 126 mg/dL meet the criteria for diagnosis of diabetes. In the absence of unequivocal hyperglycemia, results should be confirmed by repeat testing. In a patient with classic symptoms of hyperglycemia or hyperglycemic crisis, random plasma glucose results greater than or equal to 200 mg/dL meet the criteria for diagnosis of diabetes. Reference: Standards of Medical Care in Diabetes 2016, [place] [employer]. Diabetes Care. 2016.39(Suppl 1). LAB BUN 7-21 mg/dL BUN High 90 LAB CRET 0.58-0.96 mg/dL Creatinine High 2.87 LAB NA 136-144 mmol/L Low Sodium 135 LAB K 3.7-5.1 mmol/L Potassium 4.7 LAB CL 97-105 mmol/L Chloride 98 LAB CO2 22-30 mmol/L CO2 24 LAB AGAP 9-18 mmol/L Anion Gap 13 LAB ALT 7-38 U/L ALT 17 LAB GFRAA eGFR- Amer. 19 LAB GFRNAA . eGFR-All Other Races 16 Result Comment: eGFR (Estimated GFR) Units of measure: mL/min/1.73 meters squared eGFR is derived from the reexpressed MDRD Study equation using the following parameters: serum creatinine, age, gender and race. The creatinine assay has been calibrated to be traceable to IDMS. An eGFR <60 mL/min/1.73m2 for >3 months is consistent with chronic kidney disease. Refer to KDOQI guidelines for clinical interpretation. In patients with unstable renal function, e.g. those with acute kidney injury, the eGFR may not accurately reflect actual GFR. Performed By: #### CBC, CMP #### [facility] [address] [facility] [phone] NURSING PROG Observed: 02/07/2018 Status: COMPLETED Source: [place] 8:50 PM [facility] OTHER CAMPUS REPOSITORY HNO ID: [id number] Author: Sohail (Rn) ALLYSON Hernandez Service: (none) Author Type: Registered Nurse Type: Nursing Progress Note Filed: 02/07/2018 10:42 PM Note Text: Nursing Progress Note Patient Name: Luz Baca [place] [facility] [id number] Daily Note:02/07/182049 Paged hospitalist regarding pt reporting pain and temp 2110 Re-paged hospitalist [phone] Orders for Kpad and prn pain meds 2241 Paged hospitalist for pt requesting something to help her sleep This note was completed by: Sohail Hernandez RN NURSING PROG Observed: 02/07/2018 Status: COMPLETED Source: [place] 8:12 PM [facility] REPOSITORY HNO ID: [id number] Author: Sohail (Rn) ALLYSON Hernandez Service: (none) Author Type: Registered Nurse Type: Nursing Progress Note Filed: 02/07/2018 8:13 PM Note Text: Nursing Progress Note Patient Name: Luz Baca Patient Location: [place] [id number] Daily Note:02/07/[address] Ramírez, orders to hold tonight's dose of Amiodarone. Order to modify Amiodarone to 1x/day, 200 mg. This note was completed by: Sohail Hernandez RN PLAN OF CARE Observed: 02/07/2018 Status: COMPLETED Source: [place] 2:09 PM [facility] REPOSITORY HNO ID: [id number] Author: Vanessa Loomis (Rn) Carlos RN Service: Case Management Author Type: Registered Nurse Type: Plan of Care Filed: 02/07/2018 2:11 PM Note Text: MULTIDISCIPLINARY ROUNDS SERVICE DATE: 02/07/2018 ADMISSION DATE: 01/27/2018 SERVICE TIME: 2:09 PM ANTICIPATED D/C DATE: 1-2 days Problem List: ACTIVE PROBLEM LIST Cad (Coronary Artery Disease) Essential Hypertension Hyperlipidemia Copd (Chronic Obstructive Pulmonary Disease) (Hcc) Sleep Apnea Gerd (Gastroesophageal Reflux Disease) Arthritis Depression Atrial Fibrillation (Hcc) Uncontrolled Type 2 Diabetes Mellitus With Stage 3 Chronic Kidney Disease, With Long-Term Current Use of Insulin ([facility]) 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 On 3L n/c today Chronic 2.5 LO2 at home. From home with dtr. Chose [facility] NEED F2F, Dtr will transport. 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, Cardiac Enzymes, K, Mg, Hgb/Hct Levels Within Normal;Patient Optimal Cardiac Function Evidence by: Vital Signs Stable, Control Chest Pain, Adequate Oxygenation, Cardiac Goal Target Achievement Date: 02/08/18luid/Electrolyte Intervention(s) Plan: Assess for Signs/Symptom of Dehydration and Fluid Overload;Monitor Lab Values;Daily Weights;Notify LIP for Changes to Baseline Status;Monitor Patient Vital Signs and Intake and Output Fluid/Electrolyte Goals/Outcomes: Appropriate Fluid and Electrolyte Balance Achieved and Maintained;Exhibits Increased Interest and Assume Responsibility for Patient's Own/Family Learning by Beginning to Look for Information and Ask Questions Fluid/Electrolyte Goal Target Achievement Date: 02/08/18 Risk for Infection Intervention(s) Plan: Assess Vital Signs;Assess Signs/Symptom of Infection;Ensure Appropriate Infection Control Standards (Isolation), Sterile, Aseptic Technique;Maintain Hand Hygiene;Monitor Labs and Cultures;Notify LIP for Changes to Baseline Status Risk for Infection Goals/Outcomes: Patient Without Signs/Symptoms of Infections Risk For Infection Goal Target Achievement Date: 02/08/18 Mobility Intervention(s) Plan: Energy conservation/Fatigue Management;Mobility Assist Device;Position to Optimal Function;Pain Management;Notify LIP for Changes to Baseline Status (Unexplained Decrease in IFMS Score);[place] Safety Measures;Pressure Ulcer Prevention Mobility Patient/Family Goals: Demonstrates ability to complete transfers with least level of assist.;Patient Attained Highest Level of Functional of Mobility Mobility Goal Target Achievement Date: 02/08/18 Respiratory Alteration Intervention(s) Plan: Assess and Monitor Respiratory Status;Encourage Coughing and Deep Breathing;Plan Care for Frequent Rest Periods;Positioning for Maximum Lung Capacity;Notify LIP for Changes to Baseline Status Respiratory Alteration Goals/Outcomes: Decrease of Respiratory Distress Respiratory Goal Target Achievement Date: 02/08/18 DOCUMENTED BY: Vanessa Gonzalez RN PATIENT NAME: Luz Baca DATE: February 07, 2018 TIME: 2:09 PM CSN: [id number] PROGRESS Observed: 02/07/2018 Status: COMPLETED Source: [place] 12:33 PM [facility] OTHER CAMPUS REPOSITORY HNO ID: [id number] Author: Russell Strickland Service: General Internal Medicine Author Type: Physician Type: Progress Notes Filed: 02/07/2018 12:38 PM Note Text: INTERNAL MEDICINE PROGRESS NOTE SERVICE DATE: 02/07/2018 SERVICE TIME: 1233 ADMITTING PHYSICIAN: Gloria Singer Subjective CHIEF COMPLAINT: sob Current Facility-Administered Medications: furosemide 500 mg in empty bottle 50 mL IV infusion (LASIX) 10 mg/hr INTRAVENOUS CONTINUOUS amiodarone 400 mg tab(s) (PACERONE) 400 mg ORAL BID simvastatin 20 mg tab(s) (ZOCOR) 20 mg ORAL AT BEDTIME aluminum-magnesium hydroxide-simethicone 200-200-20 mg/5 mL 15 mL (MAALOX,MYLANTA,MAG-AL PLUS) 15 mL ORAL q 4 H PRN insulin lispro 7 Units injection (rapid acting) (HumaLOG) 7 Units SUBCUTANEOUS w MEALS insulin lispro injection (rapid acting) (HumaLOG) SUBCUTANEOUS w MEALS carvedilol 3.125 mg tab(s) (COREG) 3.125 mg ORAL BID w MEALS insulin glargine 28 Units injection (long acting) (LANTUS) 28 Units SUBCUTANEOUS DAILY (8 AM) insulin glargine 40 Units injection (long acting) (LANTUS) 40 Units SUBCUTANEOUS AT BEDTIME cholecalciferol 1,000 Units tab(s) (VITAMIN D3) 1,000 Units ORAL DAILY allopurinol 100 mg tab(s) (ZYLOPRIM) 100 mg ORAL DAILY docusate sodium 100 mg cap(s) (COLACE) 100 mg ORAL BID polyethylene glycol 3350 17 g packet (MIRALAX, GLYCOLAX) 17 g ORAL DAILY bisacodyl 10 mg suppository (DULCOLAX) 10 mg RECTAL DAILY PRN sodium chloride 0.65 % 2 Parker (AYR, OCEAN) 2 Parker EACH NOSTRIL PRN apixaban 2.5 mg tab(s) (ELIQUIS) 2.5 mg ORAL BID gabapentin 200 mg cap(s) (NEURONTIN) 200 mg ORAL BID ondansetron orally disintegrating 4 mg tab(s) (ZOFRAN ODT) 4 mg ORAL q 6 H PRN acetaminophen 650 mg tab(s) (TYLENOL) 650 mg ORAL q 6 H PRN ipratropium-albuterol 3 mL nebulizer solution (DUONEB) 3 mL INHALATION q [address] 40 mg tab(s) (PROTONIX) 40 mg ORAL BID bacitracin 1 application topical ointment 1 application TOPICAL BID isosorbide mononitrate ER 60 mg tab(s) (IMDUR) 60 mg ORAL DAILY 0.9% NaCl 3-5 mL 3-5 mL INTRAVENOUS q 12 H dextrose 40 % 15 g 15 g ORAL PRN Or glucagon 1 mg injection (GLUCAGEN) 1 mg INTRAMUSCULAR PRN Or dextrose 50% in water 25 mL syringe 12.5 g INTRAVENOUS PRN miconazole 2 % 1 application topical powder (LOTRIMIN AF, DESENEX) 1 application TOPICAL BID INTERVAL HISTORY OF PRESENT ILLNESS: No f/c, no headaches or dizziness, no cp or palps, no n/v/d No cough has sob and some constant chest pressure worse with inspiration Objective PHYSICAL EXAM: Patient Vitals for the past 24 hrs: BP Temp Temp src Pulse Resp SpO2 Weight 02/07/18 1135 106/57 (!) 35.7 ?C (96.2 ?F) Rectal (!) 52 20 98 % - 02/07/18 0937 - (!) 35.6 ?C (96 ?F) Rectal - - - - 02/07/18 0910 115/62 - - - - - - 02/07/18 0818 - - - - - 98 % - 02/07/18 0747 (!) 101/49 (!) 35.8 ?C (96.5 ?F) Temporal Art 61 20 98 % - 02/07/18 0506 - - - - - - 113.3 kg (249 lb 11.2 oz) 02/07/18 0442 120/65 - Oral 61 18 96 % - 02/07/18 0009 114/52 36.4 ?C (97.5 ?F) Oral 61 18 95 % - 02/06/182026 - - - 63 18 - - 02/06/182016 - - - 61 18 95 % - 02/06/182011 120/60 36.6 ?C (97.9 ?F) Oral (!) 52 18 95 % - 02/06/18 1633 145/78 36.3 ?C (97.3 ?F) Oral 70 22 97 % - Body mass index is 37.97 kg/(m2). GENERAL: Alert, no distress, cooperative SKIN: Skin color, texture, turgor normal. No rashes or lesions. OROPHARYNX: Lips, mucosa, and tongue are normal.Teeth and gums, normal. Oropharynx normal. NECK: No carotid bruits LUNGS: Lungs clear to auscultation. Good diaphragmatic excursion. CARDIAC: Normal S1 and S2; no rubs, murmurs, or gallops ABDOMEN: Abdomen soft, non-tender, BS normal, No masses or organomegaly EXTREMITIES: Extremities normal, no deformities, edema, clubbing or skin discoloration. Good capillary refill. DATA: Diagnostic tests reviewed for today's visit: Most recent labs and imaging results. Assessment/Plan Principal Problem: Chest pain in adult POA: Yes Assessment AND Plan: trops stable and likely elevated due to CKD. Nl stress test 08/03 Active Problems: Chronic combined systolic and diastolic CHF (congestive heart failure) (HCC) POA: Yes Assessment AND Plan: cont lasix gtt, BNP 1300, ECHO ef 50%, grade 3 diastolic dysfunction and pulm HTN Atrial fibrillation (HCC) POA: Yes Assessment AND Plan: cont eliquis and pacerone, rate controlled Uncontrolled type 2 diabetes mellitus with stage 3 chronic kidney disease, with long-term current use of insulin (HCC) POA: Yes Assessment AND Plan: A1c 12, cont insulin, ssi as needed Essential hypertension POA: Yes Assessment AND Plan: stable ROMÁN with CKD; baseline Cr 1.5, increased to 2.8 with diuresis, renal following Resolved Problems: * No resolved hospital problems. * SIGNATURE: Russell Strickland MD PATIENT NAME: Luz Baca DATE: February 07, 2018 TIME: 12:33 PM PAGER/CONTACT #: [phone] XR CHEST 1V FRONTAL Observed: 02/07/2018 Status: F Source: [facility] 11:54 AM [facility] OTHER CAMPUS REPOSITORY * * *Final Report* * * DATE OF EXAM: Feb 07 2018 11:54AM MDX [id number] - XR CHEST 1V FRONTAL PORT / PROCEDURE REASON: SOB (shortness of breath) * * * * Physician Interpretation * * * * EXAMINATION: CHEST RADIOGRAPH (PORTABLE SINGLE VIEW AP) Exam Date/Time: 02/07/2018 11:54 AM Indication: SOB (shortness of breath) MQ: [id number] Comparison: 02/05/2018 RESULT: See impression. IMPRESSION: Lines, tubes, and devices: Pacemaker wire in the right ventricle Lungs and pleura: Mild vascular prominence and indistinctness may indicate mild congestion. No obvious pleural effusions. Left base streaky densities probably subsegmental atelectasis and is not significantly changed. Cardiomediastinal silhouette: Moderately enlarged, stable Other: . Service Delivery Supervisor: SALINAS Transcribe Date/Time: Feb 07 2018 12:51P Dictated by : ANN MARIE CARSON MD This examination was interpreted and the report reviewed and electronically signed by: ANN MARIE CARSON MD on Feb 07 2018 12:52PM EST [id number] NUTRITION Observed: 02/07/2018 Status: COMPLETED Source: [place] 10:57 AM [facility] OTHER CAMPUS REPOSITORY HNO ID: [id number] Author: Violet Valente Service: (none) Author Type: Registered Dietitian Type: Nutrition Filed: 02/07/2018 11:00 AM Note Text: NUTRITION THERAPY PROGRESS NOTE SERVICE DATE: 02/07/2018 SERVICE TIME: 10:50 am NUTRITION CARE PLAN Intervention: Carb Controlled, 2 gm K diet Monitor and Evaluation: Goal: Meet >75% of estimated needs Monitor fluid/electrolyte balance Will follow within 7 days or as consulted Discharge Nutrition Recommendations: Diet: Carb Controlled, 2 gm K diet Nutritional Intake: >75% estimated energy needs over the past 5 day(s) K level improving on 2 gm K diet and diuresis Admission Weight: 105.2 kg (232 lb) Current Weight: 113.3 kg (249 lb 11.2 oz) Body mass index is 37.97 kg/(m2). class 2 obesity MNT Billing Type: Re-assess/15 min 1 unit SIGNATURE: Violet Valente RD, LD PATIENT NAME: Luz Baca DATE: February 07, 2018 TIME: 10:57 AM PAGER: CONSULT PROG Observed: 02/07/2018 Status: COMPLETED Source: [place] 7:45 AM [facility] OTHER CAMPUS REPOSITORY HNO ID: [id number] Author: Jordi Cevallos Service: Nephrology Author Type: Physician Type: Consult Progress Note Filed: 02/07/2018 8:20 AM Note Text: INPATIENT CONSULT PROGRESS NOTES Patient Name: Luz Baca DATE of SERVICE: February 07, 2018 TIME of SERVICE: 7:45 AM CONSULTING SERVICE: Nephrology REASON FOR VISIT: ROMÁN on CKD Stage 3 CC: shortness of breath SUBJECTIVE: Breathing is better. She is feeling very cold. She has noticed increase in urine output. No diarrhea. ROS: no headache, no nausea, no vomiting, no abdominal pain, no palpitations, no chest pain MEDICATIONS: reviewed PHYSICAL EXAM: Patient Vitals for the past 8 hrs: BP Temp Temp src Pulse Resp SpO2 Weight 02/07/18 0506 - - - - - - 113.3 kg (249 lb 11.2 oz) 02/07/18 0442 120/65 - Oral 61 18 96 % - 02/07/18 0009 114/52 36.4 ?C (97.5 ?F) Oral 61 18 95 % - Body mass index is 37.97 kg/(m2). GENERAL: ?Obese,?no distress, cooperative LUNGS: Decreased air entry, few expiratory wheeze CARDIAC: Normal S1 and S2; no rubs, murmurs, or gallops ABDOMEN: Abdomen soft, non-tender. BS normal. EXTREMITIES: mild bilateral lower ext?edema Intake/Output Summary (Last 24 hours) at 02/07/18 0745 Last data filed at 02/07/18 0600 Gross per 24 hour Intake 1765 ml Output 1151 ml Net 614 ml DATA: Labs and images reviewed CBC, Coags, BMP, Mg, Phos Recent Labs 02/07/18 0518 02/06/18 0516 02/05/18 1044 02/05/18 0557 WBC 7.32 6.22 -- 5.91 HB 10.7* 10.4* -- 10.6* HCT 34.4* 33.6* -- 33.8* PLT 182 153 -- 146* NA 133* 134* -- 134* K 5.2* 5.6* -- 5.1 CHLOR 98 97 -- 96* CO2 24 24 -- 27 BUN 85* 79* -- 73* CREAT 2.82* 2.47* -- 2.55* GLUC 87 123* -- 226* CA 8.5 8.9 -- 8.5 MG -- -- 2.7* -- ASSESSMENT: 1. ROMÁN: Creatinine is worse with initiation of lasix drip which was expected given intravascular volume contraction in the setting of total body fluid overload. On lasix drip with improvement in urine output. 2. Hyperkalemia: k at 5.2. Improved with better diuresis and low k diet. 3. Fluid overload: currently on lasix drip. she has right sided heart failure with moderate to severe pulmonary hypertension but likely intravascularly depleted. EF of 50%. CXR Shows CHF. 4. CKD Stage 3: baseline creatinine is mid 1 range. [place] urine with no significant proteinuria ?? PLAN: ?? 1. Will continue lasix infusion 10mg/hr with close monitoring of renal function and output 2. Will need to accept some degree of azotemia given the fluid overload 3. Serial renal panel 4. Overall prognosis is poor in the setting of pulmonary hypertension and ROMÁN ? Will continue to follow the patient during the hospital stay. SIGNATURE: Jordi Cevallos MD DATE: February 07, 2018 TIME: 7:45 AM CBC Collected: 02/07/2018 Status: F Source: [place] 5:18 AM [facility] OTHER CAMPUS REPOSITORY TYPE CODE TESTS RESULT OUT OF REFERENCE UNITS RANGE LAB WBC 3.70-11.00 k/uL WBC 7.32 LAB RBC 3.90-5.20 m/uL Low RBC 3.51 LAB HGB 11.5-15.5 g/dL Low Hemoglobin 10.7 LAB HCT 36.0-46.0 % Low Hematocrit 34.4 LAB MCV 80.0-100.0 fL MCV 98.0 LAB MCH 26.0-34.0 pG MCH 30.5 LAB MCHC 30.5-36.0 g/dL MCHC 31.1 LAB RDWCV 11.5-15.0 % RDW-CV 15.0 LAB PLTCT 150-400 k/uL Platelet Count 182 LAB MPV 9.0-12.7 fL MPV 9.9 Performed By: #### CBC, CMP #### [facility] [address] [facility] [phone] COMP METABOLIC PANEL Collected: 02/07/2018 Status: F Source: [place] 5:18 AM [facility] OTHER CAMPUS REPOSITORY TYPE CODE TESTS RESULT OUT OF REFERENCE UNITS RANGE LAB TP 6.3-8.0 g/dL Protein, Total 6.5 LAB ALB 3.9-4.9 g/dL Low Albumin 3.3 LAB CA 8.5-10.2 mg/dL Calcium, Total 8.5 LAB TBIL 0.2-1.3 mg/dL Bilirubin, Total 0.4 LAB ALKP 32-117 U/L Alkaline Phosphatase 89 LAB AST 13-35 U/L AST 18 LAB GLU 74-99 mg/dL Glucose 87 Result Comment: The [place] [employer] (ADA) provides guidance for cutoff values for fasting glucose and random glucose. The ADA defines fasting as no caloric intake for at least 8 hours. Fas ting plasma glucose results between 100 to 125 mg/dL indicate increased risk for diabetes (prediabetes). Fasting plasma glucose results greater than or equal to 126 mg/dL meet the criteria for diagnosis of diabetes. In the absence of unequivocal hyperglycemia, results should be confirmed by repeat testing. In a patient with classic symptoms of hyperglycemia or hyperglycemic crisis, random plasma glucose results greater than or equal to 200 mg/dL meet the criteria for diagnosis of diabetes. Reference: Standards of Medical Care in Diabetes 2016, [place] [employer]. Diabetes Care. 2016.39(Suppl 1). LAB BUN 7-21 mg/dL BUN High 85 LAB CRET 0.58-0.96 mg/dL Creatinine High 2.82 LAB NA 136-144 mmol/L Low Sodium 133 LAB K 3.7-5.1 mmol/L Potassium High 5.2 LAB CL 97-105 mmol/L Chloride 98 LAB CO2 22-30 mmol/L CO2 24 LAB AGAP 9-18 mmol/L Anion Gap 11 LAB ALT 7-38 U/L ALT 17 LAB GFRAA eGFR- Amer. 20 LAB GFRNAA . eGFR-All Other Races 16 Result Comment: eGFR (Estimated GFR) Units of measure: mL/min/1.73 meters squared eGFR is derived from the reexpressed MDRD Study equation using the following parameters: serum creatinine, age, gender and race. The creatinine assay has been calibrated to be traceable to IDMS. An eGFR <60 mL/min/1.73m2 for >3 months is consistent with chronic kidney disease. Refer to KDOQI guidelines for clinical interpretation. In patients with unstable renal function, e.g. those with acute kidney injury, the eGFR may not accurately reflect actual GFR. Performed By: #### CBC, CMP #### [facility] [address] [facility] [phone] PROGRESS Observed: 02/06/2018 Status: COMPLETED Source: [place] 3:39 PM [facility] OTHER CAMPUS REPOSITORY O ID: [id number] Author: Radha Edmonds Service: Hospital Medicine Author Type: Physician Type: Progress Notes Filed: 02/07/2018 5:55 AM Note Text: HOSPITAL MEDICINE PROGRESS NOTE Name: Luz Baca SERVICE DATE: 02/06/2018 SERVICE TIME: 3:39 PM LOCATION / ROOM: [id number] Correction of time of service Radha Edmonds MD February 07, 2018 5:55 AM Hospital Medicine/Primary Attending: Radha Edmonds MD NIGHT COVERAGE BETWEEN 5.30P-7.30A Page [id number] ASSESSMENT AND PLAN Chest pain in adult HS trop 55, repeat 56 which is similar to readings at previous admission likely from CKD. Pt had external stress test 07/2017: no evidence of ischemia. Troponin 0.050 to 0.059 to 0.076, monitor on tele. Cards consulted. F/u recs ? Chronic combined systolic and diastolic CHF (congestive heart failure) Pt was just hospitalized for CHF exacerbation from 01/20/18-01/23/18. BNP 1300 improved from 2145 from last admit. But?still believe her symptoms related to volume overloaded Increased lasix to 80 mg BID IV and aldactone BID Cr got worse likely from volume loss from diarrhea and high dose of diurectics Monitor cr, f/u cards recs Off Lasix now But ? Worsening CHF with CHF findings on CXR. May need dose of lasix ? Acute renal failure Kidney function most likely got worse due to over diuresis D/w nephro - giving some fluid for now. Slight worse again today. Hold off aldactone today D/W nephro - started on lasix drip ? Atrial fibrillation On eliquis. S/p pacemaker. Monitor on tele ? Pacemaker Had recent device interrogation 12/2017 ? CAD (coronary artery disease) CABGx2 (DEBORAH-LAD, SVG-PDA ) in 2003 ? Uncontrolled type 2 diabetes mellitus with stage 3 chronic kidney disease, with long-term current use of insulin HbA1c: 12.0. ?Endocrinology consulted. On Lantus 30 units AM and 40 units HS, Humalog 12 uints with each meals plus sliding scale. Increased HS dose of Lantus to 44 units. Fasting sugars are improving ? Essential hypertension Stable, continue home meds. ? Sleep apnea Wears CPAP at home, continue. ?? Acute diarrhea Resolved SUBJECTIVE INTERVAL HPI: Patient is worried about the renal functioning and her outlook.No fever, chills, cp nor palpitations. No events overnight MEDICATIONS: Reviewed Current Facility-Administered Medications: furosemide 500 mg in empty bottle 50 mL IV infusion (LASIX) 10 mg/hr INTRAVENOUS CONTINUOUS Jordi Cevallos Last Rate: 1 mL/hr at 02/07/187 10 mg/hr at 02/07/18 031 amiodarone 400 mg tab(s) (PACERONE) 400 mg ORAL BID Qarab Ronal Darrell 400 mg at 02/06/182004 simvastatin 20 mg tab(s) (ZOCOR) 20 mg ORAL AT BEDTIME Qarab Ronal Darrell 20 mg at 02/06/182004 aluminum-magnesium hydroxide-simethicone 200-200-20 mg/5 mL 15 mL (MAALOX,MYLANTA,MAG-AL PLUS) 15 mL ORAL q 4 H PRN Radha Adams) Linkuestakellee insulin lispro 7 Units injection (rapid acting) (HumaLOG) 7 Units SUBCUTANEOUS w MEALS Shruti Hasan 7 Units at 02/06/18 1701 insulin lispro injection (rapid acting) (HumaLOG) SUBCUTANEOUS w MEALS Shruti Hasan 6 Units at 02/05/18 1214 carvedilol 3.125 mg tab(s) (COREG) 3.125 mg ORAL BID w MEALS Mauro Ariasn Darrell 3.125 mg at 02/06/18 1700 insulin glargine 28 Units injection (long acting) (LANTUS) 28 Units SUBCUTANEOUS DAILY (8 AM) Dina Bowman MD 28 Units at 02/06/18 0852 insulin glargine 40 Units injection (long acting) (LANTUS) 40 Units SUBCUTANEOUS AT BEDTIME Dina Bowman MD 40 Units at 02/06/18 2203 cholecalciferol 1,000 Units tab(s) (VITAMIN D3) 1,000 Units ORAL DAILY Malena A Argekar 1,000 Units at 02/06/18 0853 allopurinol 100 mg tab(s) (ZYLOPRIM) 100 mg ORAL DAILY Malena A Argekar 100 mg at 02/06/18 0853 docusate sodium 100 mg cap(s) (COLACE) 100 mg ORAL BID Radha Adams) Thuestad 100 mg at 02/05/18 1123 polyethylene glycol 3350 17 g packet (MIRALAX, GLYCOLAX) 17 g ORAL DAILY Radha Adams) Thuestad 17 g at 02/02/18 1046 bisacodyl 10 mg suppository (DULCOLAX) 10 mg RECTAL DAILY PRN Radha Adams) Thuestad sodium chloride 0.65 % 2 Parker (AYR, OCEAN) 2 Parker EACH NOSTRIL PRN Zuhair Wick apixaban 2.5 mg tab(s) (ELIQUIS) 2.5 mg ORAL BID Radha Adams) Thuestad 2.5 mg at 02/06/182004 gabapentin 200 mg cap(s) (NEURONTIN) 200 mg ORAL BID Malena A Argekar 200 mg at 02/06/182004 ondansetron orally disintegrating 4 mg tab(s) (ZOFRAN ODT) 4 mg ORAL q 6 H PRN Zuhair Wick 4 mg at 02/04/18 0835 acetaminophen 650 mg tab(s) (TYLENOL) 650 mg ORAL q 6 H PRN Leonard Ortiz 650 mg at 02/07/18 0310 ipratropium-albuterol 3 mL nebulizer solution (DUONEB) 3 mL INHALATION q 4 H PRN Raymond (Gorge) Claire 3 mL at 02/06/18[address] pantoprazole DR 40 mg tab(s) (PROTONIX) 40 mg ORAL BID Raymond (Pa) Claire 40 mg at 02/06/182004 bacitracin 1 application topical ointment 1 application TOPICAL BID Raymond (Gorge) Claire 1 application at 02/06/182008 isosorbide mononitrate ER 60 mg tab(s) (IMDUR) 60 mg ORAL DAILY Raymond (Gorge) Claire 60 mg at 02/06/18 0853 0.9% NaCl 3-5 mL 3-5 mL INTRAVENOUS q 12 H Raymond (Gorge) Claire 5 mL at 02/06/18 0851 dextrose 40 % 15 g 15 g ORAL PRN Raymond (Gorge) Claire Or glucagon 1 mg injection (GLUCAGEN) 1 mg INTRAMUSCULAR PRN Raymond (Gorge) Claire Or dextrose 50% in water 25 mL syringe 12.5 g INTRAVENOUS PRN Raymond (Gorge) Claire miconazole 2 % 1 application topical powder (LOTRIMIN AF, DESENEX) 1 application TOPICAL BID Gloria Ebonie Venturasedrickflaco 1 application at 02/06/182008 OBJECTIVE PHYSICAL EXAM: BP 120/65 Pulse 61 Temp (Src) 97.5 (Oral) Resp 18 Ht 5' 8 (1.73m) Wt 244 lb 4.8 oz (110.8kg) SpO2 96% BMI 37.15 kg/(m2). GENERAL: Alert, no distress, cooperative, morbid obese SKIN: Skin color, texture, turgor normal. No rashes or lesions. EYES: PERRLA, EOMI OROPHARYNX: Lips, mucosa, and tongue normal. Teeth and gums normal. Oropharynx normal. NECK: No jugulovenous distention, No carotid bruits, Carotid pulse normal contour, Supple LUNGS: Lungs clear to auscultation, Good diaphragmatic excursion CARDIAC: Normal S1 and S2; no rubs, murmurs, or gallops ABDOMEN: Abdomen soft, non-tender, BS normal, No masses or organomegaly EXTREMITIES: Extremities normal, no deformities, edema, clubbing or skin discoloration. Good capillary refill., No ulcers NEURO: Gait normal. Reflexes normal and symmetric. Sensation grossly intact, Cranial nerves II-XII intact PULSES: 2+ radial, 2+ carotid DATA: Diagnostic tests reviewed for today's visit: Most recent labs CBC: WBC 6.22 02/06/2018 HEMOGLOBIN 10.4 02/06/2018 HEMATOCRIT 33.6 02/06/2018 PLATELETS 153 02/06/2018 CMP: Sodium 134 02/06/2018 Potassium 5.6 02/06/2018 BUN 79 02/06/2018 Creatinine 2.47 02/06/2018 Glucose 123 02/06/2018 Chloride 97 02/06/2018 CO2 Content, Venous 24 02/06/2018 VTE Prophylaxis: Patient is already anti-coagulated. Disposition: Home with [facility] Plan of care discussed with: Patient SIGNATURE: Radha Edmonds MD DATE: February 07, 2018 TIME: 5:39 AM CONSULT PROG Observed: 02/06/2018 Status: COMPLETED Source: [place] 12:40 PM CLINIC OTHER CAMPUS REPOSITORY [facility] ID: [id number] Author: Mauro Ramírez Service: Cardiovascular Medicine Author Type: Physician Type: Consult Progress Note Filed: 02/06/2018 12:54 PM Note Text: PROGRESS NOTE CARDIOLOGY SERVICE SERVICE DATE: 02/06/2018 SERVICE TIME: 12:41 PM Subjective INTERIM HISTORY: Patient had no chest pain, SOB or palpitations or dizziness overnight. She has frequent PVCs on the monitor MEDICATIONS: Current hospital medications: furosemide 500 mg in empty bottle 50 mL IV infusion (LASIX) 10 mg/hr INTRAVENOUS CONTINUOUS insulin lispro 7 Units injection (rapid acting) (HumaLOG) 7 Units SUBCUTANEOUS w MEALS insulin lispro injection (rapid acting) (HumaLOG) SUBCUTANEOUS w MEALS carvedilol 3.125 mg tab(s) (COREG) 3.125 mg ORAL BID w MEALS amiodarone 200 mg tab(s) (PACERONE) 200 mg ORAL TID insulin glargine 28 Units injection (long acting) (LANTUS) 28 Units SUBCUTANEOUS DAILY (8 AM) insulin glargine 40 Units injection (long acting) (LANTUS) 40 Units SUBCUTANEOUS AT BEDTIME cholecalciferol 1,000 Units tab(s) (VITAMIN D3) 1,000 Units ORAL DAILY allopurinol 100 mg tab(s) (ZYLOPRIM) 100 mg ORAL DAILY docusate sodium 100 mg cap(s) (COLACE) 100 mg ORAL BID polyethylene glycol 3350 17 g packet (MIRALAX, GLYCOLAX) 17 g ORAL DAILY bisacodyl 10 mg suppository (DULCOLAX) 10 mg RECTAL DAILY PRN sodium chloride 0.65 % 2 Parker (AYR, OCEAN) 2 Parker EACH NOSTRIL PRN apixaban 2.5 mg tab(s) (ELIQUIS) 2.5 mg ORAL BID gabapentin 200 mg cap(s) (NEURONTIN) 200 mg ORAL BID ondansetron orally disintegrating 4 mg tab(s) (ZOFRAN ODT) 4 mg ORAL q 6 H PRN acetaminophen 650 mg tab(s) (TYLENOL) 650 mg ORAL q 6 H PRN simvastatin 40 mg tab(s) (ZOCOR) 40 mg ORAL AT BEDTIME ipratropium-albuterol 3 mL nebulizer solution (DUONEB) 3 mL INHALATION q [address] 40 mg tab(s) (PROTONIX) 40 mg ORAL BID bacitracin 1 application topical ointment 1 application TOPICAL BID isosorbide mononitrate ER 60 mg tab(s) (IMDUR) 60 mg ORAL DAILY 0.9% NaCl 3-5 mL 3-5 mL INTRAVENOUS q 12 H dextrose 40 % 15 g 15 g ORAL PRN glucagon 1 mg injection (GLUCAGEN) 1 mg INTRAMUSCULAR PRN dextrose 50% in water 25 mL syringe 12.5 g INTRAVENOUS PRN miconazole 2 % 1 application topical powder (LOTRIMIN AF, DESENEX) 1 application TOPICAL BID Objective PHYSICAL EXAM: Patient Vitals for the past 24 hrs: BP Temp Temp src Pulse Resp SpO2 Weight 02/06/18 1230 109/51 - Oral 78 20 97 % - 02/06/18 0825 137/83 36.4 ?C (97.5 ?F) Oral 77 20 96 % - 02/06/18 0410 129/67 36.5 ?C (97.7 ?F) Oral (!) 56 19 95 % - 02/06/18 0346 - - - - - - 110.8 kg (244 lb 4.8 oz) 02/06/18 0054 - - - 65 22 96 % - 02/05/18 2341 147/56 36.3 ?C (97.3 ?F) Axillary 62 19 97 % - 02/05/18 1926 125/54 36.4 ?C (97.5 ?F) Oral 60 18 99 % - 02/05/18 1653 - - - 72 - - - 02/05/18 1624 122/81 - Oral (!) 47 20 98 % - Weight change: 5.216 kg (11 lb 8 oz) Body mass index is 37.15 kg/(m2). Intake/Output Summary (Last 24 hours) at 02/06/18 1241 Last data filed at 02/06/18 0600 Gross per 24 hour Intake 1630 ml Output 552 ml Net 1078 ml General: Pt is able to communicate. Patient is not in acute respiratory distress. SKIN: No rash or lumps. Eyes. Pupils are round and accommodative to light. HEENT: Normocephalic, face symmetrical. Normal pinna. Throat is without congestion. Pharyngeal structures are not crowded NECK: Supple, no JVD, no carotid bruit, no thyromegaly. LUNGS: Clear to auscultation bilaterally. CARDIAC: Normal S1 and S2, faint systolic murmur. Left Pectoral device site is clean ABDOMEN: Soft, nontender, bowel sounds present. Few bruise bland are noted EXTREMITIES: No cyanosis, clubbing, 1-2 pitting leg / ankle edema. PULSES: Peripheral pulses are not palpable in Dorsalis pedis and Posterior tibial arteries bilaterally. NEURO: Non-focal. Awake, alert, oriented times 3. Moves all extremities. MUSCULOSKELETAL: No fracture or dislocation of the bones or foints. Recent Labs 02/06/18 0516 02/05/18 1044 TROPT -- 0.058* WBC 6.22 -- RBC 3.41* -- HB 10.4* -- HCT 33.6* -- MCV 98.5 -- MCH 30.5 -- MCHC 31.0 -- PLT 153 -- GLUC 123* -- BUN 79* -- CREAT 2.47* -- NA 134* -- K 5.6* -- CHLOR 97 -- CO2 24 -- TPROT 6.5 -- ALB 3.3* -- CA 8.9 -- ALKPHOS 94 -- TBILI 0.3 -- AST 19 -- ALT 19 -- MG -- 2.7* Diagnostic tests reviewed : Most recent labs and imaging results reviewed. IMPRESSION: Spirometry shows no obstruction. The reduced FVC suggests very severe restriction. ? Recommend lung volumes if clinically indicated. The diffusing capacity is severely reduced. The presence of a reduced DLCO that normalizes when corrected for volume is consistent with a non-parenchymal disorder but does not rule out parenchymal or pulmonary vascular disease. The diffusing capacity corrected for volume is normal. Electronically Signed On 11-12-2017 Most recent EKG / Telemetry reviewed. Ventricular paced and few PVCs are noted Impression/Recommendations 1. ?ASHD - CABGx3 2003, PCIx6 RCA 2013, PCIx3 2014. Her troponin are chronically elevated due to the Renal dysfunction 2. ?HCM - septal myectomy 2003 3. ?CHF - acute on chronic diastolic, DAMION- / ARB intolerance (CRF) 4. ?Cardiomyopathy - ischemic, ICD 2015, revised 11/2016 5. ?HTN 6. ?Trigeminal PVCs on the monitor - Tolerating Coreg 3.125 mg BID and I will give Amiodarone 400 mg BID. However, Auto PAP / BiPAP for MARLA will help 7. Defibrillator was checked in December 2017 and was normal 8. ?MARLA - unable to tolerate CPAP - ,ay consider ENT / Hypoglossal nerve stimulator 9. ?PAF- anticoagulated with apixaban 10. Acute on?CKD - Pt can be treated with hydration as her LV function is fair to good. SIGNATURE: Mauro Ramírez MD [facility] PATIENT NAME: Luz Baca DATE: February 06, 2018 TIME: 12:41 PM Cell phone #: [phone] CONSULT PROG Observed: 02/06/2018 Status: COMPLETED Source: [place] 11:24 AM CLINIC OTHER CAMPUS REPOSITORY [facility] ID: [id number] Author: Jordi Cevallos Service: Nephrology Author Type: Physician Type: Consult Progress Note Filed: 02/06/2018 12:42 PM Note Text: INPATIENT CONSULT PROGRESS NOTES Patient Name: Luz Baca DATE of SERVICE: February 06, 2018 TIME of SERVICE: 11:25 AM CONSULTING SERVICE: Nephrology REASON FOR VISIT: ROMÁN on CKD Stage 3 CC: shortness of breath SUBJECTIVE: Pt had shortness of breath on exertion. She has lower ext swelling. She has no chest pain. ROS: no headache, no nausea, no vomiting, no diarrhea, no abdominal pain, no palpitations, MEDICATIONS: reviewed PHYSICAL EXAM: Patient Vitals for the past 8 hrs: BP Temp Temp src Pulse Resp SpO2 Weight 02/06/18 0825 137/83 36.4 ?C (97.5 ?F) Oral 77 20 96 % - 02/06/18 0410 129/67 36.5 ?C (97.7 ?F) Oral (!) 56 19 95 % - 02/06/18 0346 - - - - - - 110.8 kg (244 lb 4.8 oz) Body mass index is 37.15 kg/(m2). GENERAL: Obese, no distress, cooperative LUNGS: scattered rales. Decreased air entry, few expiratory wheeze CARDIAC: Normal S1 and S2; no rubs, murmurs, or gallops ABDOMEN: Abdomen soft, non-tender. BS normal. EXTREMITIES: mild bilateral lower ext edema Intake/Output Summary (Last 24 hours) at 02/06/18 1125 Last data filed at 02/06/18 0600 Gross per 24 hour Intake 1630 ml Output 552 ml Net 1078 ml DATA: Labs and images reviewed CBC, Coags, BMP, Mg, Phos Recent Labs 02/06/18 0516 02/05/18 1044 02/05/18 0557 02/04/18 0539 WBC 6.22 -- 5.91 6.54 HB 10.4* -- 10.6* 11.4* HCT 33.6* -- 33.8* 36.2 PLT 153 -- 146* 160 NA 134* -- 134* 133* K 5.6* -- 5.1 5.2* CHLOR 97 -- 96* 96* CO2 24 -- 27 25 BUN 79* -- 73* 77* CREAT 2.47* -- 2.55* 2.53* GLUC 123* -- 226* 156* CA 8.9 -- 8.5 8.5 MG -- 2.7* -- -- ASSESSMENT: ? 1. ROMÁN: creatinine has been stable around 2.5. She has right sided heart failure.She is off iv fluids and currently not on diuretics. Her urine sodium is low suggesting poor renal perfusion. 2. Hyperkalemia: k at 5.6. She was on aldactone. 3. Fluid overload: she has right sided heart failure with moderate to severe pulmonary hypertension but likely intravascularly depleted. EF of 50%. CXR Shows CHF. 4. CKD Stage 3: baseline creatinine is mid 1 range. [place] urine with no significant proteinuria ? PLAN: ? 1. Start lasix infusion 10mg/hr 2. She understands that her fluid overload is in the wrong space given her pulmonary hypertension and removal of fluid could pose a challenge 3. Serial renal panel 4. Low k diet Will continue to follow the patient during the hospital stay. SIGNATURE: Jordi Cevallos MD DATE: February 06, 2018 TIME: 11:25 AM CBC Collected: 02/06/2018 Status: F Source: [place] 5:16 AM CLINIC OTHER CAMPUS REPOSITORY TYPE CODE TESTS RESULT OUT OF REFERENCE UNITS RANGE LAB WBC 3.70-11.00 k/uL WBC 6.22 LAB RBC 3.90-5.20 m/uL Low RBC 3.41 LAB HGB 11.5-15.5 g/dL Low Hemoglobin 10.4 LAB HCT 36.0-46.0 % Low Hematocrit 33.6 LAB MCV 80.0-100.0 fL MCV 98.5 LAB MCH 26.0-34.0 pG MCH 30.5 LAB MCHC 30.5-36.0 g/dL MCHC 31.0 LAB RDWCV 11.5-15.0 % RDW-CV High 15.2 LAB PLTCT 150-400 k/uL Platelet Count 153 LAB MPV 9.0-12.7 fL MPV 10.0 Performed By: #### CBC, CMP #### [facility] [address] [facility] [phone] COMP METABOLIC PANEL Collected: 02/06/2018 Status: F Source: [place] 5:16 AM [facility] OTHER CAMPUS REPOSITORY TYPE CODE TESTS RESULT OUT OF REFERENCE UNITS RANGE LAB TP 6.3-8.0 g/dL Protein, Total 6.5 LAB ALB 3.9-4.9 g/dL Low Albumin 3.3 LAB CA 8.5-10.2 mg/dL Calcium, Total 8.9 LAB TBIL 0.2-1.3 mg/dL Bilirubin, Total 0.3 LAB ALKP 32-117 U/L Alkaline Phosphatase 94 LAB AST 13-35 U/L AST 19 LAB GLU 74-99 mg/dL Glucose High 123 Result Comment: The [place] [employer] (ADA) provides guidance for cutoff values for fasting glucose and random glucose. The ADA defines fasting as no caloric intake for at least 8 hours. Fas ting plasma glucose results between 100 to 125 mg/dL indicate increased risk for diabetes (prediabetes). Fasting plasma glucose results greater than or equal to 126 mg/dL meet the criteria for diagnosis of diabetes. In the absence of unequivocal hyperglycemia, results should be confirmed by repeat testing. In a patient with classic symptoms of hyperglycemia or hyperglycemic crisis, random plasma glucose results greater than or equal to 200 mg/dL meet the criteria for diagnosis of diabetes. Reference: Standards of Medical Care in Diabetes 2016, [place] [employer]. Diabetes Care. 2016.39(Suppl 1). LAB BUN 7-21 mg/dL BUN High 79 LAB CRET 0.58-0.96 mg/dL Creatinine High 2.47 LAB NA 136-144 mmol/L Low Sodium 134 LAB K 3.7-5.1 mmol/L Potassium High 5.6 LAB CL 97-105 mmol/L Chloride 97 LAB CO2 22-30 mmol/L CO2 24 LAB AGAP 9-18 mmol/L Anion Gap 13 LAB ALT 7-38 U/L ALT 19 LAB GFRAA eGFR- Amer. 23 LAB GFRNAA . eGFR-All Other Races 19 Result Comment: eGFR (Estimated GFR) Units of measure: mL/min/1.73 meters squared eGFR is derived from the reexpressed MDRD Study equation using the following parameters: serum creatinine, age, gender and race. The creatinine assay has been calibrated to be traceable to IDMS. An eGFR <60 mL/min/1.73m2 for >3 months is consistent with chronic kidney disease. Refer to KDOQI guidelines for clinical interpretation. In patients with unstable renal function, e.g. those with acute kidney injury, the eGFR may not accurately reflect actual GFR. Performed By: #### CBC, CMP #### [facility] [address] [facility] [phone] NURSING PROG Observed: 02/06/2018 Status: COMPLETED Source: [place] 12:06 AM [facility] OTHER CAMPUS REPOSITORY [facility] ID: [id number] Author: Janet (Rn) ALLYSON Pineda Service: (none) Author Type: Registered Nurse Type: Nursing Progress Note Filed: 02/06/2018 12:09 AM Note Text: Nursing Progress Note Patient Name: Luz Baca Patient Location: [place] [id number] Daily Note: 2300 Made hospitalist aware of magnesium lab results 0005 Patient c/o of SOB, requesting breathing treatment. Respiratory therapy contacted. This note was completed by: Janet Pineda RN PROGRESS Observed: 02/05/2018 Status: COMPLETED Source: [place] 4:09 PM CLINIC OTHER CAMPUS REPOSITORY [facility] ID: [id number] Author: Radha Adams) Kendal Service: Hospital Medicine Author Type: Physician Type: Progress Notes Filed: 02/05/2018 4:18 PM Note Text: HOSPITAL MEDICINE PROGRESS NOTE Name: Luz Baca SERVICE DATE: 02/05/2018 SERVICE TIME: 4:09 PM LOCATION / ROOM: [place] [id number] Hospital Medicine/Primary Attending: Radha Edmonds MD NIGHT COVERAGE BETWEEN 5.30P-7.30A Page [id number] ASSESSMENT AND PLAN Chest pain in adult HS trop 55, repeat 56 which is similar to readings at previous admission likely from CKD. Pt had external stress test 07/2017: no evidence of ischemia. Troponin 0.050 to 0.059 to 0.076, monitor on tele. Cards consulted. F/u recs Chronic combined systolic and diastolic CHF (congestive heart failure) Pt was just hospitalized for CHF exacerbation from 01/20/18-01/23/18. BNP 1300 improved from 2145 from last admit. But?still believe her symptoms related to volume overloaded Increased lasix to 80 mg BID IV and aldactone BID Cr got worse likely from volume loss from diarrhea and high dose of diurectics Monitor cr, f/u cards recs Off Lasix now But ? Worsening CHF with CHF findings on CXR. May need dose of lasix Acute renal failure Kidney function most likely got worse due to over diuresis D/w nephro - giving some fluid for now. Slight worse again today. Hold off aldactone today Restarted on some IV fluids Atrial fibrillation On eliquis. S/p pacemaker. Monitor on tele Pacemaker Had recent device interrogation 12/2017 CAD (coronary artery disease) CABGx2 (DEBORAH-LAD, SVG-PDA ) in 2004 Uncontrolled type 2 diabetes mellitus with stage 3 chronic kidney disease, with long-term current use of insulin HbA1c: 12.0. ?Endocrinology consulted. On Lantus 30 units AM and 40 units HS, Humalog 12 uints with each meals plus sliding scale. Increased HS dose of Lantus to 44 units. Fasting sugars are improving Essential hypertension Stable, continue home meds. Sleep apnea Wears CPAP at home, continue. ?? Acute diarrhea Resolved SUBJECTIVE INTERVAL HPI: Feels worse today with more SOB since last night. Was treated with some more IV fluid yesterday. No fever, chills, cp nor palpitations. No events overnight MEDICATIONS: Reviewed Current Facility-Administered Medications: insulin lispro 7 Units injection (rapid acting) (HumaLOG) 7 Units SUBCUTANEOUS w MEALS Shruti Hasan 7 Units at 02/05/18 1216 insulin lispro injection (rapid acting) (HumaLOG) SUBCUTANEOUS w MEALS Shruti Hasan 6 Units at 02/05/18 1214 carvedilol 3.125 mg tab(s) (COREG) 3.125 mg ORAL BID w MEALS Qarab Ronal Darrell insulin glargine 28 Units injection (long acting) (LANTUS) 28 Units SUBCUTANEOUS DAILY (8 AM) Dina Bowman MD 28 Units at 02/05/18 0848 insulin glargine 40 Units injection (long acting) (LANTUS) 40 Units SUBCUTANEOUS AT BEDTIME Dina Bowman MD 40 Units at 02/04/18 2335 cholecalciferol 1,000 Units tab(s) (VITAMIN D3) 1,000 Units ORAL DAILY Malena A Argekar 1,000 Units at 02/05/18 1122 allopurinol 100 mg tab(s) (ZYLOPRIM) 100 mg ORAL DAILY Malena A Argekar 100 mg at 02/05/18 1122 docusate sodium 100 mg cap(s) (COLACE) 100 mg ORAL BID Radha Adams) Thuestad 100 mg at 02/05/18 1123 polyethylene glycol 3350 17 g packet (MIRALAX, GLYCOLAX) 17 g ORAL DAILY Radha Adams) Thuestad 17 g at 02/02/18 1046 bisacodyl 10 mg suppository (DULCOLAX) 10 mg RECTAL DAILY PRN Radha Adams) Thuestad sodium chloride 0.65 % 2 Parker (AYR, OCEAN) 2 Parker EACH NOSTRIL PRN Zuhair Wick apixaban 2.5 mg tab(s) (ELIQUIS) 2.5 mg ORAL BID Radha Adams) Thuestad 2.5 mg at 02/05/18 1123 gabapentin 200 mg cap(s) (NEURONTIN) 200 mg ORAL BID Malena A Argekar 200 mg at 02/05/18 1123 ondansetron orally disintegrating 4 mg tab(s) (ZOFRAN ODT) 4 mg ORAL q 6 H PRN Zuhair Wick 4 mg at 02/04/18 0835 acetaminophen 650 mg tab(s) (TYLENOL) 650 mg ORAL q 6 H PRN Shammeli Santiagoubber 650 mg at 02/05/18 0210 simvastatin 40 mg tab(s) (ZOCOR) 40 mg ORAL AT BEDTIME Raymond (Gorge) Claire 40 mg at 02/04/18 2035 ipratropium-albuterol 3 mL nebulizer solution (DUONEB) 3 mL INHALATION q 4 H PRN Raymond (Gorge) Claire 3 mL at 02/05/[address] 40 mg tab(s) (PROTONIX) 40 mg ORAL BID Raymond (Pa) Claire 40 mg at 02/05/18 1123 bacitracin 1 application topical ointment 1 application TOPICAL BID Raymond (Pa) Claire 1 application at 02/05/18 1128 isosorbide mononitrate ER 60 mg tab(s) (IMDUR) 60 mg ORAL DAILY Raymond (Pa) Claire 60 mg at 02/05/18 1123 0.9% NaCl 3-5 mL 3-5 mL INTRAVENOUS q 12 H Raymond (Gorge) Claire 5 mL at 02/05/18 1122 dextrose 40 % 15 g 15 g ORAL PRN Raymond (Pa) Claire Or glucagon 1 mg injection (GLUCAGEN) 1 mg INTRAMUSCULAR PRN Raymond (Pa) Claire Or dextrose 50% in water 25 mL syringe 12.5 g INTRAVENOUS PRN Raymond (Pa) Claire miconazole 2 % 1 application topical powder (LOTRIMIN AF, DESENEX) 1 application TOPICAL BID Gloria Singer 1 application at 02/05/18 1217 OBJECTIVE PHYSICAL EXAM: BP 128/86 Pulse 54 Temp (Src) 95.7 (Axillary) Resp 22 Ht 5' 8 (1.73m) Wt 232 lb 12.8 oz (105.6kg) SpO2 99% BMI 35.41 kg/(m2). GENERAL: Morbidly Obese, Alert, Mild Distress, Cooperative SKIN: Skin color, texture, turgor normal. No rashes or lesions. EYES: PERRLA, EOMI OROPHARYNX: Lips, mucosa, and tongue normal. Teeth and gums normal. Oropharynx normal. NECK: No jugulovenous distention, No carotid bruits, Carotid pulse normal contour, Supple LUNGS: Lungs mild rales bilaterally CARDIAC: Normal S1 and S2; no rubs, murmurs, or gallops ABDOMEN: Abdomen soft, non-tender, BS normal, No masses or organomegaly EXTREMITIES: Extremities normal, no deformities, edema, clubbing or skin discoloration. Good capillary refill., No ulcers NEURO: Reflexes normal and symmetric. Sensation grossly intact, Cranial nerves II-XII intact PULSES: 2+ radial, 2+ carotid DATA: Diagnostic tests reviewed for today's visit: Most recent labs CBC: WBC 5.91 02/05/2018 HEMOGLOBIN 10.6 02/05/2018 HEMATOCRIT 33.8 02/05/2018 PLATELETS 146 02/05/2018 CMP: Sodium 134 02/05/2018 Potassium 5.1 02/05/2018 BUN 73 02/05/2018 Creatinine 2.55 02/05/2018 Glucose 226 02/05/2018 Chloride 96 02/05/2018 CO2 Content, Venous 27 02/05/2018 VTE Prophylaxis: Patient is already anti-coagulated. Disposition: Home vs Home with [facility] Plan of care discussed with: Patient, rN SIGNATURE: Radha Edmonds MD DATE: February 05, 2018 TIME: 4:09 PM CONSULT PROG Observed: 02/05/2018 Status: COMPLETED Source: [place] 1:23 PM CLINIC OTHER CAMPUS REPOSITORY [facility] ID: [id number] Author: Jordi Cevallos Service: Nephrology Author Type: Physician Type: Consult Progress Note Filed: 02/05/2018 1:29 PM Note Text: INPATIENT CONSULT PROGRESS NOTES Patient Name: Luz Baca DATE of SERVICE: February 05, 2018 TIME of SERVICE: 1:24 PM CONSULTING SERVICE: Nephrology REASON FOR VISIT: ROMÁN on CKD Stage 3 CC: tired SUBJECTIVE: Pt is resting in bed. She feels tired. She states that the breathing is better. Not much cough. Has slight leg swelling. ROS: no headache, no nausea, no vomiting, no diarrhea, no abdominal pain, no palpitations, no chest pain MEDICATIONS: reviewed PHYSICAL EXAM: Patient Vitals for the past 8 hrs: BP Temp Temp src Pulse Resp SpO2 Weight 02/05/18 1148 128/86 (!) 35.4 ?C (95.7 ?F) Axillary (!) 54 22 99 % - 02/05/18 0954 - - - 60 - - - 02/05/18 0944 - - - 60 20 97 % - 02/05/18 0736 130/66 36.4 ?C (97.6 ?F) Temporal Art 65 20 98 % - 02/05/18 0600 - - - - - - 105.6 kg (232 lb 12.8 oz) Body mass index is 35.4 kg/(m2). GENERAL: Obese, no distress, cooperative LUNGS: Lungs clear to auscultation. Decreased air entry, no crackles CARDIAC: Normal S1 and S2; no rubs, murmurs, or gallops ABDOMEN: Abdomen soft, non-tender. BS normal. EXTREMITIES: mild bilateral lower ext edema Intake/Output Summary (Last 24 hours) at 02/05/18 1324 Last data filed at 02/05/18 1000 Gross per 24 hour Intake 1544 ml Output 700 ml Net 844 ml DATA: Labs and images reviewed CBC, Coags, BMP, Mg, Phos Recent Labs 02/05/18 0557 02/04/18 0539 02/03/18 0430 WBC 5.91 6.54 6.10 HB 10.6* 11.4* 10.8* HCT 33.8* 36.2 34.5* PLT 146* 160 151 NA 134* 133* 136 K 5.1 5.2* 5.1 CHLOR 96* 96* 98 CO2 27 25 27 BUN 73* 77* 75* CREAT 2.55* 2.53* 2.46* GLUC 226* 156* 75 CA 8.5 8.5 8.7 ASSESSMENT: 1. ROMÁN: creatinine has been stable around 2.5. She has right sided heart failure.She is off iv fluids and currently not on diuretics. Her urine sodium is low suggesting poor renal perfusion. 2. Hyperkalemia: k at 5.1. She was on aldactone. 3. Fluid overload: she has right sided heart failure but likely intravascularly depleted. 4. CKD Stage 3: baseline creatinine is mid 1 range. [place] urine with no significant proteinuria PLAN: 1. No additional ivfluids 2. Continue to hold diuretics for now 3. Serial renal panel 4. Low k diet Will continue to follow the patient during the hospital stay. SIGNATURE: Jordi Cevallos MD DATE: February 05, 2018 TIME: 1:24 PM CONSULT PROG Observed: 02/05/2018 Status: COMPLETED Source: [place] 1:19 PM CLINIC OTHER CAMPUS REPOSITORY [facility] ID: [id number] Author: Mauro Ramírez Service: Cardiovascular Medicine Author Type: Physician Type: Consult Progress Note Filed: 02/05/2018 1:54 PM Note Text: PROGRESS NOTE CARDIOLOGY SERVICE SERVICE DATE: 02/05/2018 SERVICE TIME: 1:19 PM Subjective INTERIM HISTORY: Patient has SOB but had no chest pain, or palpitations or dizziness overnight. MEDICATIONS: Current hospital medications: insulin lispro 7 Units injection (rapid acting) (HumaLOG) 7 Units SUBCUTANEOUS w MEALS insulin lispro injection (rapid acting) (HumaLOG) SUBCUTANEOUS w MEALS insulin glargine 28 Units injection (long acting) (LANTUS) 28 Units SUBCUTANEOUS DAILY (8 AM) insulin glargine 40 Units injection (long acting) (LANTUS) 40 Units SUBCUTANEOUS AT BEDTIME cholecalciferol 1,000 Units tab(s) (VITAMIN D3) 1,000 Units ORAL DAILY allopurinol 100 mg tab(s) (ZYLOPRIM) 100 mg ORAL DAILY docusate sodium 100 mg cap(s) (COLACE) 100 mg ORAL BID polyethylene glycol 3350 17 g packet (MIRALAX, GLYCOLAX) 17 g ORAL DAILY bisacodyl 10 mg suppository (DULCOLAX) 10 mg RECTAL DAILY PRN sodium chloride 0.65 % 2 Parker (AYR, OCEAN) 2 Parker EACH NOSTRIL PRN apixaban 2.5 mg tab(s) (ELIQUIS) 2.5 mg ORAL BID gabapentin 200 mg cap(s) (NEURONTIN) 200 mg ORAL BID ondansetron orally disintegrating 4 mg tab(s) (ZOFRAN ODT) 4 mg ORAL q 6 H PRN acetaminophen 650 mg tab(s) (TYLENOL) 650 mg ORAL q 6 H PRN simvastatin 40 mg tab(s) (ZOCOR) 40 mg ORAL AT BEDTIME ipratropium-albuterol 3 mL nebulizer solution (DUONEB) 3 mL INHALATION q [address] 40 mg tab(s) (PROTONIX) 40 mg ORAL BID bacitracin 1 application topical ointment 1 application TOPICAL BID isosorbide mononitrate ER 60 mg tab(s) (IMDUR) 60 mg ORAL DAILY 0.9% NaCl 3-5 mL 3-5 mL INTRAVENOUS q 12 H dextrose 40 % 15 g 15 g ORAL PRN glucagon 1 mg injection (GLUCAGEN) 1 mg INTRAMUSCULAR PRN dextrose 50% in water 25 mL syringe 12.5 g INTRAVENOUS PRN miconazole 2 % 1 application topical powder (LOTRIMIN AF, DESENEX) 1 application TOPICAL BID Objective PHYSICAL EXAM: Patient Vitals for the past 24 hrs: BP Temp Temp src Pulse Resp SpO2 Weight 02/05/18 1148 128/86 (!) 35.4 ?C (95.7 ?F) Axillary (!) 54 22 99 % - 02/05/18 0954 - - - 60 - - - 02/05/18 0944 - - - 60 20 97 % - 02/05/18 0736 130/66 36.4 ?C (97.6 ?F) Temporal Art 65 20 98 % - 02/05/18 0600 - - - - - - 105.6 kg (232 lb 12.8 oz) 02/05/18 0401 133/60 36.4 ?C (97.6 ?F) Oral 60 20 97 % - 02/05/18 0208 - - - 66 20 - - 02/05/18 0157 - - - 64 20 99 % - 02/04/18 2326 131/83 36.7 ?C (98.1 ?F) Oral 60 20 99 % - 02/04/182026 - - - 66 20 - - 02/04/182018 - - - 66 20 98 % - 02/04/18 1944 136/62 36.4 ?C (97.5 ?F) Oral (!) 54 18 98 % - 02/04/18 1539 122/66 36.3 ?C (97.3 ?F) Oral (!) 54 18 99 % - Weight change: 8.255 kg (18 lb 3.2 oz) Body mass index is 35.4 kg/(m2). Intake/Output Summary (Last 24 hours) at 02/05/18 1319 Last data filed at 02/05/18 1000 Gross per 24 hour Intake 1544 ml Output 700 ml Net 844 ml General: Pt is able to communicate. Patient is not in acute respiratory distress. SKIN: No rash or lumps but has chronic venous stasis of the legs bilaterally . Eyes. Pupils are round and accommodative to light. HEENT: Normocephalic, face symmetrical. Normal pinna. Throat is without congestion. Pharyngeal structures are crowded NECK: Supple, no JVD, no carotid bruit, no thyromegaly. LUNGS: Decreased air entry to auscultation bilaterally. Bypass scar on the chest is healed CARDIAC: Irregular rhythm is noted with variable instensity of the S1 and S2, LSB systolic murmur. ABDOMEN: Soft, nontender, bowel sounds present. EXTREMITIES: No cyanosis, clubbing, but has mild pitting pretibial leg edema. PULSES: Peripheral pulses are palpable in Dorsalis pedis and Posterior tibial arteries bilaterally. NEURO: Non-focal. Awake, alert, oriented times 3. Moves all extremities. MUSCULOSKELETAL: No fracture or dislocation of the bones or foints. Recent Labs 02/05/18 1044 02/05/18 0557 TROPT 0.058* -- WBC -- 5.91 RBC -- 3.42* HB -- 10.6* HCT -- 33.8* MCV -- 98.8 MCH -- 31.0 MCHC -- 31.4 PLT -- 146* GLUC -- 226* BUN -- 73* CREAT -- 2.55* NA -- 134* K -- 5.1 CHLOR -- 96* CO2 -- 27 TPROT -- 6.3 ALB -- 3.3* CA -- 8.5 ALKPHOS -- 98 TBILI -- 0.3 AST -- 17 ALT -- 18 Diagnostic tests reviewed Most recent labs and imaging results reviewed. Most recent EKG / Telemetry reviewed. A Fibrillation Echo exam indication: CAD, SOB, s/p myectomy - The left ventricle is normal in size. There is mild left ventricular hypertrophy. Left ventricular systolic function is mildly decreased. EF = 50 ? 5% - The right ventricle is dilated. Right ventricular systolic function is mildly decreased. - The left atrial cavity is moderately dilated. The right atrial cavity is dilated. - There is moderate (2+ - 3+) tricuspid valve regurgitation. - Estimated right ventricular systolic pressure is 78 mmHg consistent with moderately severe pulmonary hypertension. Estimated right atrial pressure is 10 mmHg. - s/p myectomy: LVOT gradient at rest 6 mmHg, trivial-1+ MR. Patient unable to valsalva. - Exam was compared with the prior echocardiographic exam performed on Impression/Recommendations Patient Active Hospital Problem List: Chest pain in adult (01/27/2018) Chronic combined systolic and diastolic CHF (congestive heart failure) (HCC) (12/10/2017) Atrial fibrillation ([facility]) (09/23/2010) Pacemaker () CAD (coronary artery disease) () Uncontrolled type 2 diabetes mellitus with stage 3 chronic kidney disease, with long-term current use of insulin ([facility]) (09/23/2004) Essential hypertension () Sleep apnea () Class 1 obesity due to excess calories with serious comorbidity in adult (2010) 1. ASHD - CABGx3 2003, PCIx6 RCA 2013, PCIx3 2014. Her troponin are chronically elevated due to the Renal dysfunction 2. HCM - septal myectomy 2003 3. CHF - acute on chronic diastolic, DAMION-I/ARB intolerance (CRF) 4. Cardiomyopathy - ischemic, ICD 2015, revised 11/2016 5. HTN 6. PVCs on the monitor - Will start Coreg 3.125 mg BID to assess if she can tolerate this low dose that would be beneficial for the CAD, arrhythmia 7. Defibrillator was check in december 2017 and was normal 8. MARLA - unable to tolerate CPAP - ,ay consider ENT / Hypoglossal nerve stimulator 9. PAF- anticoagulated with apixaban 10. Acute on CKD - Pt can be treated with hydration as her LV function is fair to good. SIGNATURE: Mauro Ramírez MD [facility] PATIENT NAME: Luz Baca DATE: February 05, 2018 TIME: 1:19 PM Cell phone #: [phone] XR CHEST 2V FRONTAL/LAT Observed: 02/05/2018 Status: F Source: [place] 10:55 AM [facility] OTHER CAMPUS REPOSITORY * * *Final Report* * * DATE OF EXAM: Feb 05 2018 10:55AM MDX [id number] - XR CHEST 2V FRONTAL/LAT / PROCEDURE REASON: SOB (shortness of breath) * * * * Physician Interpretation * * * * EXAMINATION: CHEST RADIOGRAPH (2 VIEW FRONTAL and LATERAL) Clinical History: SOB (shortness of breath) MQ: XC2_5 Comparison: 01/27/2018 RESULT: Lines, tubes, and devices: Single lead left transvenous pacemaker. Lungs and pleura: Vascular redistribution with indistinct margins, interstitial opacities in the mid and lower left lung and ill-defined left costophrenic gutter which may relate to technique. No significant pleural effusion. Cardiomediastinal silhouette: Median sternotomy, stable cardiac enlargement. Other: . IMPRESSION: Congestive failure with interstitial edema. Service Delivery Supervisor: SALINAS Transcribe Date/Time: Feb 05 2018 12:53P Dictated by : Arsen NORIEGA MD This examination was interpreted and the report reviewed and electronically signed by: Arsen NORIEGA MD on Feb 05 2018 12:56PM EST [id number] TROPONIN T Collected: 02/05/2018 Status: F Source: [place] 10:44 AM [facility] REPOSITORY TYPE CODE TESTS RESULT OUT OF REFERENCE UNITS RANGE LAB TROPT 0.000-0.029 ng/mL High Troponin T 0.058 Result Comment: Called to and read back by: Kahlil [id number] 02/05/18 1206 BBlum Performed By: #### MARIN #### [facility] [address] [place] [address] MAGNESIUM Collected: 02/05/2018 Status: F Source: [place] 10:44 AM [facility] REPOSITORY TYPE CODE TESTS RESULT OUT OF REFERENCE UNITS RANGE LAB MG 1.7-2.3 mg/dL High Magnesium 2.7 Performed By: #### MG1 #### [facility] [address] [place] [address] PROGRESS Observed: 02/05/2018 Status: COMPLETED Source: [place] 10:29 AM CLINIC OTHER CAMPUS REPOSITORY [facility] ID: [id number] Author: Radha Adams) Kendal Service: Hospital Medicine Author Type: Physician Type: Progress Notes Filed: 02/06/2018 1:10 AM Note Text: HOSPITAL MEDICINE PROGRESS NOTE Name: Luz Baca SERVICE DATE: 02/05/2018 SERVICE TIME: 10:29 AM LOCATION / ROOM: [place] [address]/[place] [address] Hospital Medicine/Primary Attending: Radha Edmonds MD NIGHT COVERAGE BETWEEN 5.30P-7.30A Page [phone] ASSESSMENT AND PLAN Chest pain in adult HS trop 55, repeat 56 which is similar to readings at previous admission likely from CKD. Pt had external stress test 07/2017: no evidence of ischemia. Troponin 0.050 to 0.059 to 0.076, monitor on tele. Cards consulted. F/u recs ? Chronic combined systolic and diastolic CHF (congestive heart failure) Pt was just hospitalized for CHF exacerbation from 01/20/18-01/23/18. BNP 1300 improved from 2145 from last admit. But?still believe her symptoms related to volume overloaded Increased lasix to 80 mg BID IV and aldactone BID Cr got worse likely from volume loss from diarrhea and high dose of diurectics Monitor cr, f/u cards recs Off Lasix now But ? Worsening CHF with CHF findings on CXR. May need dose of lasix Worsening SOB Patient last night and today have increased work of breathing CXR shows fluid overload/CHF picture Due to not improving renal function did not order lasix. Did do serial exams and later in the day feel better. Acute renal failure Kidney function most likely got worse due to over diuresis D/w nephro - giving some fluid for now. Slight worse again today. Hold off aldactone today Restarted on some IV fluids ? Atrial fibrillation On eliquis. S/p pacemaker. Monitor on tele ? Pacemaker Had recent device interrogation 12/2017 ? CAD (coronary artery disease) CABGx2 (DEBORAH-LAD, SVG-PDA ) in 2003 ? Uncontrolled type 2 diabetes mellitus with stage 3 chronic kidney disease, with long-term current use of insulin HbA1c: 12.0. ?Endocrinology consulted. On Lantus 30 units AM and 40 units HS, Humalog 12 uints with each meals plus sliding scale. Increased HS dose of Lantus to 44 units. Fasting sugars are improving ? Essential hypertension Stable, continue home meds. ? Sleep apnea Wears CPAP at home, continue. ?? Acute diarrhea Resolved ? SUBJECTIVE INTERVAL HPI: Feels worse due to increased work of breathing. No fever, chills, cp nor palpitations. No events overnight. MEDICATIONS: Reviewed Current Facility-Administered Medications: insulin lispro 7 Units injection (rapid acting) (HumaLOG) 7 Units SUBCUTANEOUS w MEALS Shruti Hasan insulin lispro injection (rapid acting) (HumaLOG) SUBCUTANEOUS w MEALS Shruti Hasan insulin glargine 28 Units injection (long acting) (LANTUS) 28 Units SUBCUTANEOUS DAILY (8 AM) Dina Bowman MD 28 Units at 02/05/18 0848 insulin glargine 40 Units injection (long acting) (LANTUS) 40 Units SUBCUTANEOUS AT BEDTIME Dina Bowman MD 40 Units at 02/04/18 2335 cholecalciferol 1,000 Units tab(s) (VITAMIN D3) 1,000 Units ORAL DAILY Malena A Argekar 1,000 Units at 02/04/18 0835 allopurinol 100 mg tab(s) (ZYLOPRIM) 100 mg ORAL DAILY Malena A Argekar 100 mg at 02/04/18 0835 docusate sodium 100 mg cap(s) (COLACE) 100 mg ORAL BID Radha Adams) Thuestad 100 mg at 02/04/18 0843 polyethylene glycol 3350 17 g packet (MIRALAX, GLYCOLAX) 17 g ORAL DAILY Radha Adams) Thuestad 17 g at 02/02/18 1046 bisacodyl 10 mg suppository (DULCOLAX) 10 mg RECTAL DAILY PRN Radha Adams) Thuestad sodium chloride 0.65 % 2 Parker (AYR, OCEAN) 2 Parker EACH NOSTRIL PRN Zuhair Wick apixaban 2.5 mg tab(s) (ELIQUIS) 2.5 mg ORAL BID Radha Adams) Thuestad 2.5 mg at 02/04/182034 gabapentin 200 mg cap(s) (NEURONTIN) 200 mg ORAL BID Malena A Argekar 200 mg at 02/04/182033 ondansetron orally disintegrating 4 mg tab(s) (ZOFRAN ODT) 4 mg ORAL q 6 H PRN Zuhair Gordono 4 mg at 02/04/18 0835 acetaminophen 650 mg tab(s) (TYLENOL) 650 mg ORAL q 6 H PRN Leonard Ortiz 650 mg at 02/05/18 0210 simvastatin 40 mg tab(s) (ZOCOR) 40 mg ORAL AT BEDTIME Raymond (Gorge) Claire 40 mg at 02/04/182034 ipratropium-albuterol 3 mL nebulizer solution (DUONEB) 3 mL INHALATION q 4 H PRN Raymond (Gorge) Claire 3 mL at 02/05/[address] 40 mg tab(s) (PROTONIX) 40 mg ORAL BID Raymond (Gorge) Claire 40 mg at 02/04/182034 bacitracin 1 application topical ointment 1 application TOPICAL BID Raymond (Gorge) Claire 1 application at 02/04/182039 isosorbide mononitrate ER 60 mg tab(s) (IMDUR) 60 mg ORAL DAILY Raymond (Gorge) Claire 60 mg at 02/04/18 0836 0.9% NaCl 3-5 mL 3-5 mL INTRAVENOUS q 12 H Raymond (Gorge) Claire 5 mL at 02/04/182039 dextrose 40 % 15 g 15 g ORAL PRN Raymond (Gorge) Claire Or glucagon 1 mg injection (GLUCAGEN) 1 mg INTRAMUSCULAR PRN Raymond (Gorge) Claire Or dextrose 50% in water 25 mL syringe 12.5 g INTRAVENOUS PRN Raymond (Gorge) Claire miconazole 2 % 1 application topical powder (LOTRIMIN AF, DESENEX) 1 application TOPICAL BID Gloria A Keyonwsedricki 1 application at 02/04/182040 OBJECTIVE PHYSICAL EXAM: BP 130/66 Pulse 60 Temp (Src) 97.6 (Temporal Artery) Resp 20 Ht 5' 8 (1.73m) Wt 232 lb 12.8 oz (105.6kg) SpO2 97% BMI 35.41 kg/(m2). GENERAL: Alert, mild to moderate distress from SOB, cooperative SKIN: Skin color, texture, turgor normal. No rashes or lesions. EYES: PERRLA, EOMI OROPHARYNX: Lips, mucosa, and tongue normal. Teeth and gums normal. Oropharynx normal. NECK: No jugulovenous distention, No carotid bruits, Carotid pulse normal contour, Supple LUNGS: Lungs clear to auscultation, Good diaphragmatic excursion CARDIAC: Normal S1 and S2; no rubs, murmurs, or gallops ABDOMEN: Abdomen soft, non-tender, BS normal, No masses or organomegaly EXTREMITIES: Extremities normal, no deformities, edema, clubbing or skin discoloration. Good capillary refill., No ulcers NEURO: Gait normal. Reflexes normal and symmetric. Sensation grossly intact, Cranial nerves II-XII intact PULSES: 2+ radial, 2+ carotid DATA: Diagnostic tests reviewed for today's visit: Most recent labs CBC: WBC 5.91 02/05/2018 HEMOGLOBIN 10.6 02/05/2018 HEMATOCRIT 33.8 02/05/2018 PLATELETS 146 02/05/2018 CMP: Sodium 134 02/05/2018 Potassium 5.1 02/05/2018 BUN 73 02/05/2018 Creatinine 2.55 02/05/2018 Glucose 226 02/05/2018 Chloride 96 02/05/2018 CO2 Content, Venous 27 02/05/2018 VTE Prophylaxis: Patient is already anti-coagulated. Disposition: Home and Home with [facility] Plan of care discussed with: Patient SIGNATURE: Radha Edmonds MD DATE: February 05, 2018 TIME: 10:29 AM CONSULT PROG Observed: 02/05/2018 Status: COMPLETED Source: [place] 9:12 AM CLINIC OTHER CAMPUS REPOSITORY [facility] ID: [id number] Author: Shruti Nair Service: Endocrinology Author Type: Physician Type: Consult Progress Note Filed: 02/05/2018 10:23 AM Note Text: DIABETES PROGRESS NOTE PATIENT NAME: Luz Baca SERVICE DATE: 02/05/2018 ASSESSMENT AND PLAN Ms. Baca is a 77 year old female with a 15?year history of Diabetes Mellitus Type 2 hyperglycemia?who was admitted on 01/27/2018 for chest pain. We are consulted for diabetes mgmt. ? Uncontrolled type 2 diabetes BG were very tight yesterday, hypoglycemia noted yesterday evening ? Decrease humalog to7?units AC TID ? Continue Lantus 40?units QHS and 28 units QAM ? change?Supplemental Sliding Scale: Humalog Program #2 AC ? ? Accuchecks: AC/HS ? notify endocrinology if BG < 80 or > 200 ? ? Interval HPI + variable PO intake Insulin requirement have decreased Hypoglycemic event noted yesterday ?+ cough Preadmission insulin regimen: Lantus 50?units ?Q am and 36 units at HS Humalog 12?units ?TID and Q AC pen Sliding scale: One unit for every 25?mg/dL PAST MEDICAL HISTORY: PAST MEDICAL HISTORY Diagnosis Date - Arthritis - Atrial fibrillation (HCC) - CAD (coronary artery disease) stents x9, defibrillator, CABG. Seeing Dr. Cardona - Cardiac defibrillator in place - Cardiomegaly - Carotid artery disease ([facility]) left - Chronic kidney disease (CKD) stage G3b/A2, moderately decreased glomerular filtration rate (GFR) between 30-44 mL/min/1.73 square meter and albuminuria creatinine ratio between 30-299 mg/g Dr. Martin - COPD (chronic obstructive pulmonary disease) ([facility]) Dr. Cruz - Depression - Diabetes ([facility]) - Diabetic neuropathy ([facility]) - Edema - GERD (gastroesophageal reflux disease) - Gout with hyperuricemia - HH (hiatus hernia) - HOCM (hypertrophic obstructive cardiomyopathy) ([facility]) S/P Septal Myectomy in 2003. Now with LVEF 50% and mod/severe pulm HTN. - HTN (hypertension) - Hyperlipidemia - Morbid obesity with BMI of 40.0-44.9, adult ([facility]) - Sleep apnea 2011 not on CPAP, unable to tolerate mask 02/2017 - SVT (supraventricular tachycardia) ([facility]) NSVT and questionable VT in 2003 post op CURRENT MEDICATION: Current Facility-Administered Medications: insulin lispro 10 Units injection (rapid acting) (HumaLOG) 10 Units SUBCUTANEOUS w MEALS Dnia Bowman MD 10 Units at 02/05/18 0852 insulin glargine 28 Units injection (long acting) (LANTUS) 28 Units SUBCUTANEOUS DAILY (8 AM) Dina Bowman MD 28 Units at 02/05/18 0848 insulin glargine 40 Units injection (long acting) (LANTUS) 40 Units SUBCUTANEOUS AT BEDTIME Dina Bowman MD 40 Units at 02/04/18 2335 cholecalciferol 1,000 Units tab(s) (VITAMIN D3) 1,000 Units ORAL DAILY Malena A Argekar 1,000 Units at 02/04/18 0835 allopurinol 100 mg tab(s) (ZYLOPRIM) 100 mg ORAL DAILY Malena A Argekar 100 mg at 02/04/18 0835 docusate sodium 100 mg cap(s) (COLACE) 100 mg ORAL BID Radha Adams) Thuestad 100 mg at 02/04/18 0843 polyethylene glycol 3350 17 g packet (MIRALAX, GLYCOLAX) 17 g ORAL DAILY Radha Ebonie Adams) Thuestad 17 g at 02/02/18 1046 bisacodyl 10 mg suppository (DULCOLAX) 10 mg RECTAL DAILY PRN Radha Adams) Thuestad sodium chloride 0.65 % 2 Parker (AYR, OCEAN) 2 Parker EACH NOSTRIL PRN Zuhair Wick apixaban 2.5 mg tab(s) (ELIQUIS) 2.5 mg ORAL BID Radha Adams) Thuestad 2.5 mg at 02/04/182034 gabapentin 200 mg cap(s) (NEURONTIN) 200 mg ORAL BID Malena A Argekar 200 mg at 02/04/184 ondansetron orally disintegrating 4 mg tab(s) (ZOFRAN ODT) 4 mg ORAL q 6 H PRN Zuhair Wick 4 mg at 02/04/18 0835 acetaminophen 650 mg tab(s) (TYLENOL) 650 mg ORAL q 6 H PRN Leonard Ortiz 650 mg at 02/05/18 0210 insulin lispro injection (rapid acting) (HumaLOG) SUBCUTANEOUS w MEALS AND HS Saminder Rachel 6 Units at 02/05/18 0850 simvastatin 40 mg tab(s) (ZOCOR) 40 mg ORAL AT BEDTIME Raymond Rangel (Pa) 40 mg at 02/04/182034 ipratropium-albuterol 3 mL nebulizer solution (DUONEB) 3 mL INHALATION q 4 H PRN Raymond Rangel (Pa) 3 mL at 02/05/[address] 40 mg tab(s) (PROTONIX) 40 mg ORAL BID Raymond Nayak) Claire 40 mg at 02/04/182034 bacitracin 1 application topical ointment 1 application TOPICAL BID Raymond Nayak) Claire 1 application at 02/04/182039 isosorbide mononitrate ER 60 mg tab(s) (IMDUR) 60 mg ORAL DAILY Raymond (Gorge) Claire 60 mg at 02/04/18 0836 0.9% NaCl 3-5 mL 3-5 mL INTRAVENOUS q 12 H Raymond (Gorge) Claire 5 mL at 02/04/18 204 dextrose 40 % 15 g 15 g ORAL PRN Raymond (Gorge) Claire Or glucagon 1 mg injection (GLUCAGEN) 1 mg INTRAMUSCULAR PRN Raymond (Gorge) Claire Or dextrose 50% in water 25 mL syringe 12.5 g INTRAVENOUS PRN Raymond (Gorge) Claire miconazole 2 % 1 application topical powder (LOTRIMIN AF, DESENEX) 1 application TOPICAL BID Gloria Singer 1 application at 02/04/182040 CURRENT ALLERGIES: Allergies As of Date: 01/27/2018 Allergen Noted Reaction ASPIRIN 01/20/2018 Other: See Comments BACTRIM [SULFAMETHOXAZOLE-TRIMETH*05/17/2017 Other: See Comments LATEX 05/17/2017 Rash and Itching PENICILLINS 07/14/2004 Rash and Itching TETRACYCLINE 09/29/2010 Rash and GI Upset ATORVASTATIN 05/17/2017 Rash CODEINE 05/17/2017 Other: See Comments DILAUDID [HYDROMORPHONE (BULK)] 05/17/2017 Mental Status Change MEPERIDINE 07/14/2004 PENTAZOCINE 07/14/2004 PIOGLITAZONE 05/17/2017 Unknown PROPOXYPHENE 07/14/2004 Fully Assessed 01/27/2018 COMPLETE REVIEW OF SYSTEMS: General: no fever, chills or acute changes in weight in the last 6 months Skin: no rashes, pruritis or dry skin Cardiac: denies chest pain, heart palpitations or orthopnea Pulmonary: denies wheezing, productive cough or exertional dyspnea GI: denies nausea, vomiting, diarrhea or constipation Neuro: denies numbnes/tingling in hands or feet and denies seizures Musc: denies history of upper or lower extremity weakness Endocrine: denies polyuria, polydipsia, nocturia, blurry vision or excessive fatigue Hematology: Negative for anemia, easy bleeding and bruising. OBJECTIVE PHYSICAL EXAM: BP 130/66 Pulse 65 Temp 36.4 ?C (97.6 ?F) (Temporal Artery) Resp 20 Ht 172.7 cm (5' 8) Wt 105.6 kg (232 lb 12.8 oz) SpO2 98% BMI 35.4 kg/m2 General: Well appearing, alert, in no acute distress, well- hydrated, well nourished. Skin: skin color, texture, turgor normal, no rashes or lesions. Heart: RRR without murmur, gallop, or rubs. No ectopy Pulmonary: Lungs clear to auscultation. No wheezing, rhonchi, rales Abdomen: soft, non-tender, positive bowel sounds Extremities: no edema, no calluses or ulcers present. DATA: Diagnostic tests reviewed for today: Recent Labs 02/05/18 0734 02/04/18 2323 02/04/18 1950 02/04/18 1828 02/04/18 1753 02/04/18 1102 02/04/18 0802 02/03/18 2048 02/03/18 1713 02/03/18 1549 02/03/18 1200 02/03/18 0751 02/02/18 2116 02/02/18 1631 02/02/18 1152 PCGLUCOSE 223* 225* 89 76 64* 95 136* 96 73 74 57* 76 161* 116* 129* Glucose, Point of Care Date Value Ref Range Status 02/05/2018 223 (A) 74 - 99 mg/dL Final Comment: Meter ID:[id number] SIGNATURE: Shruti Nair MD DATE: February 05, 2018 PLAN OF CARE Observed: 02/05/2018 Status: COMPLETED Source: [place] 8:28 AM CLINIC OTHER CAMPUS REPOSITORY [facility] ID: [id number] Author: Akua Muller (Email Administrator) Service: Pharmacy Author Type: Pharmacist Type: Plan of Care Filed: 02/05/2018 8:29 AM Note Text: MEDICATION RECONCILIATION Patient Name:Josephine Baca : 1940 Reconciliation: Yes All REGULATOR ASSEMBLER medications addressed by LIP Additional comments: N/A Allergies: ALLERGIES Allergen Reactions - Aspirin Other: See Comments Patient states that she bled out every orifice, sts not allowed to take it at all. Patient states she was bleeding out of nose and mouth after one dose. - Bactrim [Sulfametho* Other: See Comments My throat swells up. - Latex Rash, Itching Itching and welts. No wheezing or shortness of breath. - Penicillins Rash, Itching Tolerated ceftriaxone during 11/2017 admission and cefepime during 12/2017 admission - Tetracycline Rash, GI Upset Emesis and diarrhea. - Atorvastatin Rash - Codeine Other: See Comments Numbness - Dilaudid [Hydromorp* Mental Status Change - Meperidine - Pentazocine - Pioglitazone Unknown - Propoxyphene Current REGULATOR ASSEMBLER Medications: Prior to Admission medications as of 01/27/182047 Medication Sig Last Dose Taking furosemide (LASIX) 40 mg tablet Take 80 mg by mouth twice daily. 01/27/2018 at 0800 Yes gabapentin (NEURONTIN) 300 mg capsule Take 600 mg by mouth twice daily. 01/27/2018 at 0800 Yes insulin aspart U-100 (NOVOLOG FLEXPEN U-100 INSULIN) 100 unit/mL inpn Inject 12 Units subcutaneously three times daily with meals. 01/27/2018 at Unknown time Yes insulin glargine (LANTUS SOLOSTAR U-100 INSULIN) 100 unit/mL (3 mL) inpn Inject 50 Units subcutaneously every morning. 01/27/2018 at 0800 Yes insulin glargine (LANTUS SOLOSTAR U-100 INSULIN) 100 unit/mL (3 mL) inpn Inject 36 Units subcutaneously daily at bedtime. 01/26/[address] at [address] (PROTONIX) 40 mg tablet Take 40 mg by mouth twice daily. 01/27/2018 at 0800 Yes potassium chloride (K-TAB) 10 mEq tablet Take 10 mEq by mouth daily with breakfast. 01/27/2018 at 0800 Yes bacitracin (ANTIBIOTIC, BACITRACIN ZINC,) ointment Apply 1 application to affected area twice daily. 01/27/2018 at Unknown time Yes nystatin (NYSTOP) powder Apply 1 application to affected area three times daily. Unknown at Unknown time Yes isosorbide mononitrate ER (IMDUR) 60 mg 24 hr tablet Take 1 tablet by mouth once daily. 01/27/2018 at 0800 Yes apixaban (ELIQUIS) 5 mg tab(s) Take 5 mg by mouth twice daily. 01/27/2018 at 0800 Yes simvastatin (ZOCOR) 40 mg tablet Take 40 mg by mouth every morning. 01/27/2018 at 0800 Yes spironolactone (ALDACTONE) 25 mg tablet Take 1 tablet by mouth once daily. 01/27/2018 at 0800 Yes ipratropium-albuterol (DUONEB) 0.5 mg-3 mg(2.5 mg base)/3 mL nebu Inhale 3 mL as instructed every 4 hours as needed. Unknown at Unknown time Yes guaiFENesin-dextromethorphan (ROBITUSSIN DM) 100-10 mg/5 mL syrup Take 5-10 mL by mouth every 6 hours as needed for Cough. Unknown at Unknown time Yes nitroglycerin sublingual (NITROQUICK) 0.4 mg SL tablet Dissolve 1 tablet under the tongue every 5 minutes as needed. Unknown at Unknown time Yes OXYGEN, HOME THERAPY, Inhale 2.5 L/min as instructed continuous. 3 L/min when leaves home. Unknown at Unknown time Yes AKUA MULLER, CONTACT LENS BLOCKER February 05, 2018 8:28 AM CBC Collected: 02/05/2018 Status: F Source: [place] 5:57 AM [facility] OTHER CAMPUS REPOSITORY TYPE CODE TESTS RESULT OUT OF REFERENCE UNITS RANGE LAB WBC 3.70-11.00 k/uL WBC 5.91 LAB RBC 3.90-5.20 m/uL Low RBC 3.42 LAB HGB 11.5-15.5 g/dL Low Hemoglobin 10.6 LAB HCT 36.0-46.0 % Low Hematocrit 33.8 LAB MCV 80.0-100.0 fL MCV 98.8 LAB MCH 26.0-34.0 pG MCH 31.0 LAB MCHC 30.5-36.0 g/dL MCHC 31.4 LAB RDWCV 11.5-15.0 % RDW-CV High 15.3 LAB PLTCT 150-400 k/uL Low Platelet Count 146 LAB MPV 9.0-12.7 fL MPV 9.8 Performed By: #### CBC, CMP #### [facility] [address] [facility] [phone] COMP METABOLIC PANEL Collected: 02/05/2018 Status: F Source: [place] 5:57 AM [facility] OTHER CAMPUS REPOSITORY TYPE CODE TESTS RESULT OUT OF REFERENCE UNITS RANGE LAB TP 6.3-8.0 g/dL Protein, Total 6.3 LAB ALB 3.9-4.9 g/dL Low Albumin 3.3 LAB CA 8.5-10.2 mg/dL Calcium, Total 8.5 LAB TBIL 0.2-1.3 mg/dL Bilirubin, Total 0.3 LAB ALKP 32-117 U/L Alkaline Phosphatase 98 LAB AST 13-35 U/L AST 17 LAB GLU 74-99 mg/dL Glucose High 226 Result Comment: The [place] [employer] (ADA) provides guidance for cutoff values for fasting glucose and random glucose. The ADA defines fasting as no caloric intake for at least 8 hours. Fas ting plasma glucose results between 100 to 125 mg/dL indicate increased risk for diabetes (prediabetes). Fasting plasma glucose results greater than or equal to 126 mg/dL meet the criteria for diagnosis of diabetes. In the absence of unequivocal hyperglycemia, results should be confirmed by repeat testing. In a patient with classic symptoms of hyperglycemia or hyperglycemic crisis, random plasma glucose results greater than or equal to 200 mg/dL meet the criteria for diagnosis of diabetes. Reference: Standards of Medical Care in Diabetes 2016, [place] [employer]. Diabetes Care. 2016.39(Suppl 1). LAB BUN 7-21 mg/dL BUN High 73 LAB CRET 0.58-0.96 mg/dL Creatinine High 2.55 LAB NA 136-144 mmol/L Low Sodium 134 LAB K 3.7-5.1 mmol/L Potassium 5.1 LAB CL 97-105 mmol/L Low Chloride 96 LAB CO2 22-30 mmol/L CO2 27 LAB AGAP 9-18 mmol/L Anion Gap 11 LAB ALT 7-38 U/L ALT 18 LAB GFRAA eGFR- Amer. 22 LAB GFRNAA . eGFR-All Other Races 18 Result Comment: eGFR (Estimated GFR) Units of measure: mL/min/1.73 meters squared eGFR is derived from the reexpressed MDRD Study equation using the following parameters: serum creatinine, age, gender and race. The creatinine assay has been calibrated to be traceable to IDMS. An eGFR <60 mL/min/1.73m2 for >3 months is consistent with chronic kidney disease. Refer to KDOQI guidelines for clinical interpretation. In patients with unstable renal function, e.g. those with acute kidney injury, the eGFR may not accurately reflect actual GFR. Performed By: #### CBC, CMP #### [facility] [address] [facility] [phone] NURSING PROG Observed: 02/04/2018 Status: COMPLETED Source: [place] 8:23 PM [facility] OTHER CAMPUS REPOSITORY O ID: [id number] Author: Janet OsheaRn) ALLYSON Pineda Service: (none) Author Type: Registered Nurse Type: Nursing Progress Note Filed: 02/04/2018 8:26 PM Note Text: Nursing Progress Note Patient Name: Luz Baca Patient Location: [place] [id number] Daily Note: 1999 Patient called with c/o SOB. Patient sitting at edge of bed. States is often short of breath. PRN breathing treatment ordered per DEC. Will continue to monitor. 2014 Patient reports eating 100% of dinner tray. Per [address] Nair, will give 5 U humalog and continue to monitor. This note was completed by: Janet Pineda RN PROGRESS Observed: 02/04/2018 Status: COMPLETED Source: [place] 3:00 PM [facility] OTHER CAMPUS REPOSITORY HNO ID: [id number] Author: Radha Edmonds Service: Hospital Medicine Author Type: Physician Type: Progress Notes Filed: 02/04/2018 3:03 PM Note Text: HOSPITAL MEDICINE PROGRESS NOTE Name: Luz Baca SERVICE DATE: 02/04/2018 SERVICE TIME: 3:00 PM LOCATION / ROOM: [place] [address]/[place] [address] Hospital Medicine/Primary Attending: Radha Edmonds MD NIGHT COVERAGE BETWEEN 5.30P-7.30A Page [phone] ASSESSMENT AND PLAN Chest pain in adult ? HS trop 55, repeat 56 which is similar to readings at previous admission likely from CKD. Pt had external stress test 07/2017: no evidence of ischemia. Troponin 0.050 to 0.059 to 0.076, monitor on tele. Cards consulted. F/u recs - Chronic combined systolic and diastolic CHF (congestive heart failure) (HCC) ? Pt was just hospitalized for CHF exacerbation from 01/20/18-01/23/18. BNP 1300 improved from 2145 from last admit. But?still believe her symptoms related to volume overloaded Increased lasix to 80 mg BID IV and aldactone BID Cr got worse likely from volume loss from diarrhea and high dose of diurectics Would decrease lasix to 60 mg BID, diarrhea resolved, monitor cr, f/u cards recs - Atrial fibrillation (HCC) ? On eliquis. S/p pacemaker. Monitor on tele. - Pacemaker ? Had recent device interrogation 12/2017. - CAD (coronary artery disease) ? CABGx2 (DEBORAH-LAD, SVG-PDA ) in 2004 - Uncontrolled type 2 diabetes mellitus with stage 3 chronic kidney disease, with long-term current use of insulin (HCC) ? HbA1c: 12.0. ?Endocrinology consulted. On Lantus 30 units AM and 40 units HS, Humalog 12 uints with each meals plus sliding scale. Increased HS dose of Lantus to 44 units. Fasting sugars are improving - Essential hypertension ? Stable, continue home meds. ?? - Sleep apnea ? Wears CPAP at home, continue. ?? Acute renal failure: ?Kidney function most likely got worse due to over diuresis ?D/w nephro - giving some fluid for now. ?Slight worse again today. ?Hold off aldactone today Restarted on some IV fluids ?? Acute diarrhea ?Resolved ? SUBJECTIVE INTERVAL HPI: Feels ok better. No fever, chills, cp nor palpitations. No events overnight MEDICATIONS: Reviewed Current Facility-Administered Medications: insulin lispro 10 Units injection (rapid acting) (HumaLOG) 10 Units SUBCUTANEOUS w MEALS Dina Bowman MD 10 Units at 02/04/18 1126 NaCl 0.9% iv infusion 75 mL/hr INTRAVENOUS CONTINUOUS Malena A Eliasar Last Rate: 75 mL/hr at 02/04/18 1126 75 mL/hr at 02/04/18 1126 insulin glargine 28 Units injection (long acting) (LANTUS) 28 Units SUBCUTANEOUS DAILY (8 AM) Dina Bowman MD 28 Units at 02/04/18 0836 insulin glargine 40 Units injection (long acting) (LANTUS) 40 Units SUBCUTANEOUS AT BEDTIME Dina Bowman MD cholecalciferol 1,000 Units tab(s) (VITAMIN D3) 1,000 Units ORAL DAILY Malena A Argekar 1,000 Units at 02/04/18 0835 allopurinol 100 mg tab(s) (ZYLOPRIM) 100 mg ORAL DAILY Malena A Argekar 100 mg at 02/04/18 0835 docusate sodium 100 mg cap(s) (COLACE) 100 mg ORAL BID Radha Adams) Thuestad 100 mg at 02/04/18 0843 polyethylene glycol 3350 17 g packet (MIRALAX, GLYCOLAX) 17 g ORAL DAILY Radha Adams) Thuestad 17 g at 02/02/18 1046 bisacodyl 10 mg suppository (DULCOLAX) 10 mg RECTAL DAILY PRN Radha Adams) Thuestad sodium chloride 0.65 % 2 Parker (AYR, OCEAN) 2 Parker EACH NOSTRIL PRN Zuhair Wick apixaban 2.5 mg tab(s) (ELIQUIS) 2.5 mg ORAL BID Radha Adams) Thuestad 2.5 mg at 02/04/18 0836 gabapentin 200 mg cap(s) (NEURONTIN) 200 mg ORAL BID Malena A Argekar 200 mg at 02/04/18 0835 ondansetron orally disintegrating 4 mg tab(s) (ZOFRAN ODT) 4 mg ORAL q 6 H PRN Zuhair Wick 4 mg at 02/04/18 0835 acetaminophen 650 mg tab(s) (TYLENOL) 650 mg ORAL q 6 H PRN Leonard Ortiz 650 mg at 01/30/18 2137 insulin lispro injection (rapid acting) (HumaLOG) SUBCUTANEOUS w MEALS AND HS Saminder Rachel 1 Units at 02/04/18 0844 simvastatin 40 mg tab(s) (ZOCOR) 40 mg ORAL AT BEDTIME Raymond (Gorge) Claire 40 mg at 02/03/182040 ipratropium-albuterol 3 mL nebulizer solution (DUONEB) 3 mL INHALATION q 4 H PRN Raymond (Gorge) Claire 3 mL at 02/03/182144 pantoprazole DR 40 mg tab(s) (PROTONIX) 40 mg ORAL BID Raymond (Gorge) Claire 40 mg at 02/04/18 0835 bacitracin 1 application topical ointment 1 application TOPICAL BID Raymond (Gorge) Claire 1 application at 02/04/18 0843 isosorbide mononitrate ER 60 mg tab(s) (IMDUR) 60 mg ORAL DAILY Raymond (Gorge) Claire 60 mg at 02/04/18 0836 0.9% NaCl 3-5 mL 3-5 mL INTRAVENOUS q 12 H Raymond (Gorge) Claire 5 mL at 02/04/18 0836 dextrose 40 % 15 g 15 g ORAL PRN Raymond (Gorge) Claire Or glucagon 1 mg injection (GLUCAGEN) 1 mg INTRAMUSCULAR PRN Raymond (Gorge) Claire Or dextrose 50% in water 25 mL syringe 12.5 g INTRAVENOUS PRN Raymond (Gorge) Claire miconazole 2 % 1 application topical powder (LOTRIMIN AF, DESENEX) 1 application TOPICAL BID Gloria Singer 1 application at 02/04/18 0844 OBJECTIVE PHYSICAL EXAM: BP 117/62 Pulse 119 Temp (Src) 97.9 (Oral) Resp 19 Ht 5' 8 (1.73m) Wt 214 lb 9.6 oz (97.3kg) SpO2 98% BMI 32.64 kg/(m2). GENERAL: Alert, no distress, cooperative, morbid obesity SKIN: Skin color, texture, turgor normal. No rashes or lesions. EYES: PERRLA, EOMI OROPHARYNX: Lips, mucosa, and tongue normal. Teeth and gums normal. Oropharynx normal. NECK: No jugulovenous distention, No carotid bruits, Carotid pulse normal contour, Supple LUNGS: Lungs clear to auscultation, Good diaphragmatic excursion CARDIAC: Normal S1 and S2; no rubs, murmurs, or gallops ABDOMEN: Abdomen soft, non-tender, BS normal, No masses or organomegaly EXTREMITIES: Extremities normal, no deformities, edema, clubbing or skin discoloration. Good capillary refill., No ulcers NEURO: Gait normal. Reflexes normal and symmetric. Sensation grossly intact, Cranial nerves II-XII intact PULSES: 2+ radial, 2+ carotid DATA: Diagnostic tests reviewed for today's visit: Most recent labs CBC: WBC 6.54 02/04/2018 HEMOGLOBIN 11.4 02/04/2018 HEMATOCRIT 36.2 02/04/2018 PLATELETS 160 02/04/2018 CMP: Sodium 133 02/04/2018 Potassium 5.2 02/04/2018 BUN 77 02/04/2018 Creatinine 2.53 02/04/2018 Glucose 156 02/04/2018 Chloride 96 02/04/2018 CO2 Content, Venous 25 02/04/2018 VTE Prophylaxis: Patient is already anti-coagulated. Disposition: Home and Home with [facility] Plan of care discussed with: Patient SIGNATURE: Radha Edmonds MD DATE: February 04, 2018 TIME: 3:00 PM CONSULT PROG Observed: 02/04/2018 Status: COMPLETED Source: [place] 11:03 AM CLINIC OTHER CAMPUS REPOSITORY HNO ID: [id number] Author: Malena Bray Service: Nephrology Author Type: Physician Type: Consult Progress Note Filed: 02/04/2018 11:06 AM Note Text: Patient seen and examined. She had some SOB yesterday - now improved. No current N/V. She feels tired. Blood pressure 111/72, pulse 78, temperature 36.3 ?C (97.3 ?F), temperature source Oral, resp. rate 18, height 172.7 cm (5' 8), weight 97.3 kg (214 lb 9.6 oz), SpO2 96 %. Intake/Output Summary (Last 24 hours) at 02/04/18 1103 Last data filed at 02/04/18 0800 Gross per 24 hour Intake 818 ml Output 801 ml Net 17 ml Gen: weak Resp: diminished BS with some mild wheezing CVS: no rub Abd: soft Ext: trace to 1+ edema K 5.2, Cr 2.5 Hb 11.4 Urine Na < 10, Up/c 0.1 Vit D 15, PTH 198 Renal US no obstruction Impression: 1. ROMÁN on CKD 3 due to diuresis of right > left CHF -poor renal perfusion suggested by low urine Na 2. Edema multifactorial from right sided CHF and gabapentin 3. Hyperkalemia due to #1 and recent spironolactone 4. Underlying CKD 3 followed [address] my partner Dr. Martin 5. Hyperuricemia ? Plan: 1. Continue to hold all diuretics 2. IVF x 500cc today 3. Low K diet; no potassium supplementation 4. Added oral Vit D and recheck PTH/Vit D in 3 months 5. Decreased gabapentin to 200mg BID due to contribution to edema 6. Started allopurinol 100mg daily ? NURSING PROG Observed: 02/04/2018 Status: COMPLETED Source: [place] 10:14 AM [facility] OTHER [place] REPOSITORY HNO ID: [id number] Author: Charlotte (Rn) ALLYSON Leary Service: (none) Author Type: Registered Nurse Type: Nursing Progress Note Filed: 02/04/2018 6:46 PM Note Text: Nursing Progress Note Patient Name: Luz Baca Patient Location: [place] [id number] Daily Note:0730: Attending paged to address potassium reading 5.2 this AM. 0835: Pt c/o intermittent nausea without emesis. She states this chronically happens; zofran subL given. 1014: Scheduled humalog with meals has been decreased to 10u per Dr. Bowman. 1140: IVF initiated at this time per Dr. Bray at 75cc/hr. 1800: Dr. Nair notified of glucose reading 64; pt has been given a apple juice to drink until her dinner tray gets here, and verbal orders have been given per the physician to only admin 5u humalog post consumption if the patient eats 100% of her meal tray. If she doesn't eat 100 percent we are to hold the dose entirely. This note was completed by: CHARLOTTE LEARY, RN CBC Collected: 02/04/2018 Status: F Source: [place] 5:39 AM [facility] OTHER CAMPUS REPOSITORY TYPE CODE TESTS RESULT OUT OF REFERENCE UNITS RANGE LAB WBC 3.70-11.00 k/uL WBC 6.54 LAB RBC 3.90-5.20 m/uL Low RBC 3.71 LAB HGB 11.5-15.5 g/dL Low Hemoglobin 11.4 LAB HCT 36.0-46.0 % Hematocrit 36.2 LAB MCV 80.0-100.0 fL MCV 97.6 LAB MCH 26.0-34.0 pG MCH 30.7 LAB MCHC 30.5-36.0 g/dL MCHC 31.5 LAB RDWCV 11.5-15.0 % RDW-CV High 15.3 LAB PLTCT 150-400 k/uL Platelet Count 160 LAB MPV 9.0-12.7 fL MPV 9.4 Performed By: #### CBC, CMP #### [facility] [address] [place] [address] COMP METABOLIC PANEL Collected: 02/04/2018 Status: F Source: [place] 5:39 AM [facility] OTHER CAMPUS REPOSITORY TYPE CODE TESTS RESULT OUT OF REFERENCE UNITS RANGE LAB TP 6.3-8.0 g/dL Protein, Total 6.3 LAB ALB 3.9-4.9 g/dL Low Albumin 3.5 LAB CA 8.5-10.2 mg/dL Calcium, Total 8.5 LAB TBIL 0.2-1.3 mg/dL Bilirubin, Total 0.4 LAB ALKP 32-117 U/L Alkaline Phosphatase 101 LAB AST 13-35 U/L AST 20 LAB GLU 74-99 mg/dL Glucose High 156 Result Comment: The [place] [employer] (ADA) provides guidance for cutoff values for fasting glucose and random glucose. The ADA defines fasting as no caloric intake for at least 8 hours. Fas ting plasma glucose results between 100 to 125 mg/dL indicate increased risk for diabetes (prediabetes). Fasting plasma glucose results greater than or equal to 126 mg/dL meet the criteria for diagnosis of diabetes. In the absence of unequivocal hyperglycemia, results should be confirmed by repeat testing. In a patient with classic symptoms of hyperglycemia or hyperglycemic crisis, random plasma glucose results greater than or equal to 200 mg/dL meet the criteria for diagnosis of diabetes. Reference: Standards of Medical Care in Diabetes 2016, [place] [employer]. Diabetes Care. 2016.39(Suppl 1). LAB BUN 7-21 mg/dL BUN High 77 LAB CRET 0.58-0.96 mg/dL Creatinine High 2.53 LAB NA 136-144 mmol/L Low Sodium 133 LAB K 3.7-5.1 mmol/L Potassium High 5.2 LAB CL 97-105 mmol/L Low Chloride 96 LAB CO2 22-30 mmol/L CO2 25 LAB AGAP 9-18 mmol/L Anion Gap 12 LAB ALT 7-38 U/L ALT 20 LAB GFRAA eGFR- Amer. 22 LAB GFRNAA . eGFR-All Other Races 18 Result Comment: eGFR (Estimated GFR) Units of measure: mL/min/1.73 meters squared eGFR is derived from the reexpressed MDRD Study equation using the following parameters: serum creatinine, age, gender and race. The creatinine assay has been calibrated to be traceable to IDMS. An eGFR <60 mL/min/1.73m2 for >3 months is consistent with chronic kidney disease. Refer to KDOQI guidelines for clinical interpretation. In patients with unstable renal function, e.g. those with acute kidney injury, the eGFR may not accurately reflect actual GFR. Performed By: #### CBC, CMP #### [facility] [address] [facility] [phone] PROGRESS Observed: 02/03/2018 Status: COMPLETED Source: [place] 2:49 PM CLIN[facility] OTHER CAMPUS REPOSITORY O ID: [id number] Author: Radha Adams) Kendal Service: Hospital Medicine Author Type: Physician Type: Progress Notes Filed: 02/03/2018 2:57 PM Note Text: HOSPITAL MEDICINE PROGRESS NOTE Name: Luz Baca SERVICE DATE: 02/03/2018 SERVICE TIME: 2:49 PM LOCATION / ROOM: [place] [id number] Hospital Medicine/Primary Attending: Radha Edmonds MD NIGHT COVERAGE BETWEEN 5.30P-7.30A Page [phone] ASSESSMENT AND PLAN Chest pain in adult ? HS trop 55, repeat 56 which is similar to readings at previous admission likely from CKD. Pt had external stress test 07/2017: no evidence of ischemia. Troponin 0.050 to 0.059 to 0.076, monitor on tele. Cards consulted. F/u recs - Chronic combined systolic and diastolic CHF (congestive heart failure) (HCC) ? Pt was just hospitalized for CHF exacerbation from 01/20/18-01/23/18. BNP 1300 improved from 2145 from last admit. But?still believe her symptoms related to volume overloaded Increased lasix to 80 mg BID IV and aldactone BID Cr got worse likely from volume loss from diarrhea and high dose of diurectics Would decrease lasix to 60 mg BID, diarrhea resolved, monitor cr, f/u cards recs - Atrial fibrillation (HCC) ? On eliquis. S/p pacemaker. Monitor on tele. - Pacemaker ? Had recent device interrogation 12/2017. - CAD (coronary artery disease) ? CABGx2 (DEBORAH-LAD, SVG-PDA ) in 2004 - Uncontrolled type 2 diabetes mellitus with stage 3 chronic kidney disease, with long-term current use of insulin (HCC) ? HbA1c: 12.0. ?Endocrinology consulted. On Lantus 30 units AM and 40 units HS, Humalog 12 uints with each meals plus sliding scale. Increased HS dose of Lantus to 44 units. Fasting sugars are improving - Essential hypertension ? Stable, continue home meds. ?? - Sleep apnea ? Wears CPAP at home, continue. ?? Acute renal failure: ?Kidney function most likely got worse due to over diuresis D/w nephro - giving some fluid for now. ?Slight improvement today. ?Hold off aldactone today Started on oral lasix ?? Acute diarrhea ?Resolved SUBJECTIVE INTERVAL HPI: Feels ok. Still concerned over the creatinine level. No fever, chills, cp nor palpitations. No events overnight MEDICATIONS: Reviewed Current Facility-Administered Medications: [START ON 02/04/2018] insulin glargine 28 Units injection (long acting) (LANTUS) 28 Units SUBCUTANEOUS DAILY (8 AM) Dina Bowman MD insulin glargine 40 Units injection (long acting) (LANTUS) 40 Units SUBCUTANEOUS AT BEDTIME Dina Bowman MD cholecalciferol 1,000 Units tab(s) (VITAMIN D3) 1,000 Units ORAL DAILY Malena A Argekar 1,000 Units at 02/03/18 0855 allopurinol 100 mg tab(s) (ZYLOPRIM) 100 mg ORAL DAILY Malena A Argekar 100 mg at 02/03/18 1330 docusate sodium 100 mg cap(s) (COLACE) 100 mg ORAL BID Radha Adams) Thuestad 100 mg at 02/02/18 2146 polyethylene glycol 3350 17 g packet (MIRALAX, GLYCOLAX) 17 g ORAL DAILY [place] Ebonie Adams) Thuestad 17 g at 02/02/18 1046 bisacodyl 10 mg suppository (DULCOLAX) 10 mg RECTAL DAILY PRN Rahda Adams) Linkuestad sodium chloride 0.65 % 2 Parker (AYR, OCEAN) 2 Parker EACH NOSTRIL PRN Zuhair Wick apixaban 2.5 mg tab(s) (ELIQUIS) 2.5 mg ORAL BID Radah Adams) Thuestad 2.5 mg at 02/03/18 0849 gabapentin 200 mg cap(s) (NEURONTIN) 200 mg ORAL BID Malena A Argekar 200 mg at 02/03/18 0848 insulin lispro 17 Units injection (rapid acting) (HumaLOG) 17 Units SUBCUTANEOUS w MEALS Som Jodie 8.5 Units at 02/03/18 1330 ondansetron orally disintegrating 4 mg tab(s) (ZOFRAN ODT) 4 mg ORAL q 6 H PRN Zuhair Wick 4 mg at 02/02/18 0807 acetaminophen 650 mg tab(s) (TYLENOL) 650 mg ORAL q 6 H PRN Leonard Santiagoubber 650 mg at 01/30/18 2137 insulin lispro injection (rapid acting) (HumaLOG) SUBCUTANEOUS w MEALS AND HS Saminder Rachel 3 Units at 02/02/18 2145 simvastatin 40 mg tab(s) (ZOCOR) 40 mg ORAL AT BEDTIME Raymond Rangel (Pa) 40 mg at 02/02/18 2146 ipratropium-albuterol 3 mL nebulizer solution (DUONEB) 3 mL INHALATION q 4 H PRN Raymond Rangel (Pa) 3 mL at 02/01/[address] 40 mg tab(s) (PROTONIX) 40 mg ORAL BID Raymond (Pa) Claire 40 mg at 02/03/18 0849 bacitracin 1 application topical ointment 1 application TOPICAL BID Raymond (Gorge) Claire 1 application at 02/03/18 0851 isosorbide mononitrate ER 60 mg tab(s) (IMDUR) 60 mg ORAL DAILY Raymond (Gorge) Claire 60 mg at 02/03/18 0849 0.9% NaCl 3-5 mL 3-5 mL INTRAVENOUS q 12 H Raymond (Gorge) Claire 5 mL at 02/03/18 0847 dextrose 40 % 15 g 15 g ORAL PRN Raymond (Gorge) Claire Or glucagon 1 mg injection (GLUCAGEN) 1 mg INTRAMUSCULAR PRN Raymond (Gorge) Claire Or dextrose 50% in water 25 mL syringe 12.5 g INTRAVENOUS PRN Raymond (Gorge) Claire miconazole 2 % 1 application topical powder (LOTRIMIN AF, DESENEX) 1 application TOPICAL BID Gloria Ebonie Singer 1 application at 02/03/18 0851 OBJECTIVE PHYSICAL EXAM: BP 109/61 Pulse 74 Temp (Src) 98.4 (Oral) Resp 18 Ht 5' 8 (1.73m) Wt 229 lb 8 oz (104.1kg) SpO2 98% BMI 34.90 kg/(m2). GENERAL: Alert, no distress, cooperative, Morbidly Obese SKIN: Skin color, texture, turgor normal. No rashes or lesions. EYES: PERRLA, EOMI OROPHARYNX: Lips, mucosa, and tongue normal. Teeth and gums normal. Oropharynx normal. NECK: No jugulovenous distention, No carotid bruits, Carotid pulse normal contour, Supple LUNGS: Lungs clear to auscultation, Good diaphragmatic excursion CARDIAC: Normal S1 and S2; no rubs, murmurs, or gallops ABDOMEN: Abdomen soft, non-tender, BS normal, No masses or organomegaly EXTREMITIES: Extremities normal, no deformities, edema, clubbing or skin discoloration. Good capillary refill., No ulcers NEURO: Reflexes normal and symmetric. Sensation grossly intact, Cranial nerves II-XII intact PULSES: 2+ radial, 2+ carotid DATA: Diagnostic tests reviewed for today's visit: Most recent labs CBC: WBC 6.10 02/03/2018 HEMOGLOBIN 10.8 02/03/2018 HEMATOCRIT 34.5 02/03/2018 PLATELETS 151 02/03/2018 CMP: Sodium 136 02/03/2018 Potassium 5.1 02/03/2018 BUN 75 02/03/2018 Creatinine 2.46 02/03/2018 Glucose 75 02/03/2018 Chloride 98 02/03/2018 CO2 Content, Venous 27 02/03/2018 VTE Prophylaxis: Patient is already anti-coagulated. Disposition: Home with [facility] Plan of care discussed with: Patient SIGNATURE: Radha Edmonds MD DATE: February 03, 2018 TIME: 2:49 PM CONSULT PROG Observed: 02/03/2018 Status: COMPLETED Source: [place] 10:32 AM CLINIC OTHER CAMPUS REPOSITORY HNO ID: [id number] Author: Malena Bray Service: Nephrology Author Type: Physician Type: Consult Progress Note Filed: 02/03/2018 10:34 AM Note Text: Patient seen and examined. Nausea is improved. Breathing at baseline. Swelling at baseline. No chest pain or SOB Blood pressure (!) 135/45, pulse 64, temperature 36.6 ?C (97.9 ?F), temperature source Oral, resp. rate 18, height 172.7 cm (5' 8), weight 104.1 kg (229 lb 8 oz), SpO2 96 %. Intake/Output Summary (Last 24 hours) at 02/03/18 1032 Last data filed at 02/03/18 0858 Gross per 24 hour Intake 3320.7 ml Output 200 ml Net 3120.7 ml Gen: weak Resp: diminished BS with some mild wheezing CVS: no rub Abd: soft Ext: trace to 1+ edema K 5.1, Cr 2.46, Uric 15.7 Hb 10.8 Urine Na < 10 Vit D 15, PTH 198 Renal US no obstruction Impression: 1. ROMÁN on CKD 3 due to diuresis of right > left CHF -poor renal perfusion suggested by low urine Na 2. Edema multifactorial from right sided CHF and gabapentin 3. Hyperkalemia due to #1 and recent spironolactone 4. Underlying CKD 3 followed by my partner Dr. Martin 5. Hyperuricemia ? Plan: 1. Continue to hold all diuretics 2. No IVF today 3. Low K diet; no potassium supplementation 4. Add oral Vit D and recheck PTH/Vit D in 3 months 6. Follow up urine alb/creat 7. Decreased gabapentin to 200mg BID due to contribution to edema 8. Start allopurinol 100mg daily ? PLAN OF CARE Observed: 02/03/2018 Status: COMPLETED Source: [place] 9:41 AM CLINIC OTHER CAMPUS REPOSITORY HNO ID: [id number] Author: Vanessa Loomis (Rn) Carlos RN Service: Case Management Author Type: Registered Nurse Type: Plan of Care Filed: 02/03/2018 9:43 AM Note Text: MULTIDISCIPLINARY ROUNDS SERVICE DATE: 02/03/2018 ADMISSION DATE: 01/27/2018 SERVICE TIME: 9:41 AM ANTICIPATED D/C DATE: 1-2 days Problem List: ACTIVE PROBLEM LIST Cad (Coronary Artery Disease) Essential Hypertension Hyperlipidemia Copd (Chronic Obstructive Pulmonary Disease) ([facility]) Sleep Apnea Gerd (Gastroesophageal Reflux Disease) Arthritis Depression Atrial Fibrillation ([facility]) Uncontrolled Type 2 Diabetes Mellitus With Stage 3 Chronic Kidney Disease, With Long-Term Current Use of Insulin ([facility]) Class 1 Obesity Due to Excess Calories With Serious Comorbidity in Adult Gout Pacemaker Chronic Combined Systolic and Diastolic Chf (Congestive Heart Failure) ([facility]) Pulmonary Hypertension Chest Pain in Adult Attendees Present at Rounds: Group Work Program Aide: Vanessa Patient: Luz Franco Keven Staff Nurse: Charlotte Needs Discussed on Rounds: Plan of Care Anticipated Discharge Disposition: Home with Home Health Care Last Vitals: BP 135/45 Pulse 64 Temp (Src) 97.9 (Oral) Resp 18 Ht 5' 8 (1.73m) Wt 229 lb 8 oz (104.1kg) SpO2 96% BMI 34.90 kg/(m2). From home with dtr. On Chronic 2.5 LO2 at home., active with [facility], Dtr will transport. This note routed [facility] Nursing: Cardiac Intervention(s) Plan: Monitor and Assess Vital Signs and IANDO Report Significant Changes to LIP;Monitor Labs;Monitor Rhythm Strips and EKG and Report Changes to LIP;Oxygen as Ordered;Review Current Medication and Medication History and Administer Medications as Ordered;Review Medications, Self I ANDO, Daily Weights, Diet and Fluid Restriction and Activity Level;Notify LIP for Changes to Baseline Status Cardiac Goals/Outcomes: Displays No Signs of Ectopy;[employer]PER, Cardiac Enzymes, K, Mg, Hgb/Hct Levels Within Normal;Patient Optimal Cardiac Function Evidence by: Vital Signs Stable, Control Chest Pain, Adequate Oxygenation, Cardiac Goal Target Achievement Date: 02/04/18luid/Electrolyte Intervention(s) Plan: Assess for Signs/Symptom of Dehydration and Fluid Overload;Monitor Lab Values;Monitor Patient Vital Signs and Intake and Output;Report Changes in Patient's Condition;Notify LIP for Changes to Baseline Status Fluid/Electrolyte Goals/Outcomes: Appropriate Fluid and Electrolyte Balance Achieved and Maintained Fluid/Electrolyte Goal Target Achievement Date: 02/04/18 Risk for Infection Intervention(s) Plan: Assess and Administer Medications;Assess Vital Signs;Assess Signs/Symptom of Infection;Maintain Hand Hygiene;Monitor Labs and Cultures;Review Current Medication and Medication History and Administer Medications as Ordered;Notify LIP for Changes to Baseline Status Risk for Infection Goals/Outcomes: Patient Without Signs/Symptoms of Infections Risk For Infection Goal Target Achievement Date: 02/04/18 Mobility Intervention(s) Plan: Mobility Assist Device;Notify LIP for Changes to Baseline Status (Unexplained Decrease in IFMS Score);Pain Management;Assist with Ambulation and Transfers;[place] Safety Measures;Pressure Ulcer Prevention;Review Current Medication and Medication History and Administer Medications as Ordered Mobility Patient/Family Goals: Patient Attained Highest Level of Functional of Mobility Mobility Goal Target Achievement Date: 02/04/18 DOCUMENTED BY: Vanessa Gonzalez RN PATIENT NAME: Luz Baca DATE: February 03, 2018 TIME: 9:41 AM CSN: [id number] PROTEIN/CREATININE RATIO Collected: Status: F Source: [place] 02/03/2018 9:00 AM CLINIC OTHER CAMPUS REPOSITORY TYPE CODE TESTS RESULT OUT OF REFERENCE UNITS RANGE LAB UTPR 0-20 mg/dL High Protein Urine 21 Random LAB UCRR 20-300 mg/dL Creatinine,Ur 142.1 ine,Ran LAB PCRAT <0.2 Protein/Creat 0.1 inine Ratio Performed By: #### PRAREGINALDO #### [facility] [address] [facility] [phone] NURSING PROG Observed: 02/03/2018 Status: COMPLETED Source: [place] 8:28 AM CLINIC OTHER CAMPUS REPOSITORY HNO ID: [id number] Author: Charlotte OsheaRn) ALLYSON Leary Service: (none) Author Type: Registered Nurse Type: Nursing Progress Note Filed: 02/03/2018 6:30 PM Note Text: Nursing Progress Note Patient Name: Luz Baca Patient Location: [id number] Daily Note:0828: Endocrinology paged at this time and Dr. Bowman notified of pts blood glucose reading 76 this AM. He states he will review her information and make necessary changes to her AM insulin regimen. Pts breakfast tray has arrived and she is now consuming. 1205: Endo notified blood glucose reads 55; he has given verbal orders to admin half of the scheduled 17 units to the patient post-consumption. She has been given juice and isma crackers until her lunch tray arrives. 1330: Pt has finished lunch, consuming 100% of her tray. As instructed, half of pts scheduled humalog has been given. 1549: Blood glucose re-check reads 74. 1739: Dr. Bowman has been notified pts glucose reads 73; he has given verbal orders to admin half of the scheduled dose of insulin post-consumption. This note was completed by: CHARLOTTE LEARY RN CBC Collected: 02/03/2018 Status: F Source: [place] 4:30 AM CLINIC OTHER CAMPUS REPOSITORY TYPE CODE TESTS RESULT OUT OF REFERENCE UNITS RANGE LAB WBC 3.70-11.00 k/uL WBC 6.10 LAB RBC 3.90-5.20 m/uL Low RBC 3.50 LAB HGB 11.5-15.5 g/dL Low Hemoglobin 10.8 LAB HCT 36.0-46.0 % Low Hematocrit 34.5 LAB MCV 80.0-100.0 fL MCV 98.6 LAB MCH 26.0-34.0 pG MCH 30.9 LAB MCHC 30.5-36.0 g/dL MCHC 31.3 LAB RDWCV 11.5-15.0 % RDW-CV High 15.4 LAB PLTCT 150-400 k/uL Platelet Count 151 LAB MPV 9.0-12.7 fL MPV 9.7 Performed By: #### CBC, CMP, URIC #### [facility] [address] [phone] COMP METABOLIC PANEL Collected: 02/03/2018 Status: F Source: [place] 4:30 AM CLINIC OTHER CAMPUS REPOSITORY TYPE CODE TESTS RESULT OUT OF REFERENCE UNITS RANGE LAB TP 6.3-8.0 g/dL Protein, Total 6.5 LAB ALB 3.9-4.9 g/dL Low Albumin 3.3 LAB CA 8.5-10.2 mg/dL Calcium, Total 8.7 LAB TBIL 0.2-1.3 mg/dL Bilirubin, Total 0.5 LAB ALKP 32-117 U/L Alkaline Phosphatase 84 LAB AST 13-35 U/L AST 20 LAB GLU 74-99 mg/dL Glucose 75 Result Comment: The [place] [employer] (ADA) provides guidance for cutoff values for fasting glucose and random glucose. The ADA defines fasting as no caloric intake for at least 8 hours. Fas ting plasma glucose results between 100 to 125 mg/dL indicate increased risk for diabetes (prediabetes). Fasting plasma glucose results greater than or equal to 126 mg/dL meet the criteria for diagnosis of diabetes. In the absence of unequivocal hyperglycemia, results should be confirmed by repeat testing. In a patient with classic symptoms of hyperglycemia or hyperglycemic crisis, random plasma glucose results greater than or equal to 200 mg/dL meet the criteria for diagnosis of diabetes. Reference: Standards of Medical Care in Diabetes 2016, [place] [employer]. Diabetes Care. 2016.39(Suppl 1). LAB BUN 7-21 mg/dL BUN High 75 LAB CRET 0.58-0.96 mg/dL Creatinine High 2.46 LAB NA 136-144 mmol/L Sodium 136 LAB K 3.7-5.1 mmol/L Potassium 5.1 LAB CL 97-105 mmol/L Chloride 98 LAB CO2 22-30 mmol/L CO2 27 LAB AGAP 9-18 mmol/L Anion Gap 11 LAB ALT 7-38 U/L ALT 19 LAB GFRAA eGFR- Amer. 23 LAB GFRNAA . eGFR-All Other Races 19 Result Comment: eGFR (Estimated GFR) Units of measure: mL/min/1.73 meters squared eGFR is derived from the reexpressed MDRD Study equation using the following parameters: serum creatinine, age, gender and race. The creatinine assay has been calibrated to be traceable to IDMS. An eGFR <60 mL/min/1.73m2 for >3 months is consistent with chronic kidney disease. Refer to KDOQI guidelines for clinical interpretation. In patients with unstable renal function, e.g. those with acute kidney injury, the eGFR may not accurately reflect actual GFR. Performed By: #### CBC, CMP, URIC #### [facility] [address] [facility] [phone] URIC ACID Collected: 02/03/2018 Status: F Source: [place] 4:30 AM CLINIC OTHER CAMPUS REPOSITORY TYPE CODE TESTS RESULT OUT OF RANGE REFERENCE UNITS LAB URIC 2.5-6.6 mg/dL High Uric Acid 15.7 Performed By: #### CBC, CMP, URIC #### [facility] [address] [facility] [phone] PROGRESS Observed: 02/02/2018 Status: COMPLETED Source: [place] 7:39 PM CLINIC OTHER [place] REPOSITORY HNO ID: [id number] Author: Radha Edmonds Service: Hospital Medicine Author Type: Physician Type: Progress Notes Filed: 02/02/2018 7:42 PM Note Text: HOSPITAL MEDICINE PROGRESS NOTE Name: Luz Baca SERVICE DATE: 02/02/2018 SERVICE TIME: 7:39 PM LOCATION / ROOM: [place] [id number] Hospital Medicine/Primary Attending: Radha Edmonds MD NIGHT COVERAGE BETWEEN 5.30P-7.30A Page [id number] ASSESSMENT AND PLAN ? Chest pain in adult ? HS trop 55, repeat 56 which is similar to readings at previous admission likely from CKD. Pt had external stress test 07/2017: no evidence of ischemia. Troponin 0.050 to 0.059 to 0.076, monitor on tele. Cards consulted. F/u recs - Chronic combined systolic and diastolic CHF (congestive heart failure) (HCC) ? Pt was just hospitalized for CHF exacerbation from 01/20/18-01/23/18. BNP 1300 improved from 2145 from last admit. But?still believe her symptoms related to volume overloaded Increased lasix to 80 mg BID IV and aldactone BID Cr got worse likely from volume loss from diarrhea and high dose of diurectics Would decrease lasix to 60 mg BID, diarrhea resolved, monitor cr, f/u cards recs - Atrial fibrillation (HCC) ? On eliquis. S/p pacemaker. Monitor on tele. - Pacemaker ? Had recent device interrogation 12/2017. - CAD (coronary artery disease) ? CABGx2 (DEBORAH-LAD, SVG-PDA ) in 2004 - Uncontrolled type 2 diabetes mellitus with stage 3 chronic kidney disease, with long-term current use of insulin (HCC) ? HbA1c: 12.0. ?Endocrinology consulted. On Lantus 30 units AM and 40 units HS, Humalog 12 uints with each meals plus sliding scale. Increased HS dose of Lantus to 44 units. Fasting sugars are improving - Essential hypertension ? Stable, continue home meds. ?? - Sleep apnea ? Wears CPAP at home, continue. ?? Acute renal failure: Creat still worsning due to over diuresis D/w nephro - giving some fluid for now. Consulted nephro Slight improvement today. Hold off lasix and aldactone today ?? Acute diarrhea Resolved ?? SUBJECTIVE INTERVAL HPI: Feels some nausea this am. Still SOB is better. No fever, chills, cp nor palpitations. No events overnight MEDICATIONS: Reviewed Current Facility-Administered Medications: docusate sodium 100 mg cap(s) (COLACE) 100 mg ORAL BID Radha Adams) Thuestad 100 mg at 02/02/18 1046 polyethylene glycol 3350 17 g packet (MIRALAX, GLYCOLAX) 17 g ORAL DAILY Radha Adams) Thuestad 17 g at 02/02/18 1046 bisacodyl 10 mg suppository (DULCOLAX) 10 mg RECTAL DAILY PRN Radha Adams) Thuestad NaCl 0.9% iv infusion 75 mL/hr INTRAVENOUS CONTINUOUS Malena A Argekar Last Rate: 75 mL/hr at 02/02/18 1052 75 mL/hr at 02/02/18 1052 sodium chloride 0.65 % 2 Parker (AYR, OCEAN) 2 Parker EACH NOSTRIL PRN Zuhair Wick apixaban 2.5 mg tab(s) (ELIQUIS) 2.5 mg ORAL BID Radha Adams) Thuestad 2.5 mg at 02/02/18 0850 gabapentin 200 mg cap(s) (NEURONTIN) 200 mg ORAL BID Malena A Argekar 200 mg at 02/02/18 0850 insulin glargine 50 Units injection (long acting) (LANTUS) 50 Units SUBCUTANEOUS AT BEDTIME Som Feliciano 50 Units at 02/01/183 insulin glargine 36 Units injection (long acting) (LANTUS) 36 Units SUBCUTANEOUS DAILY (8 AM) Som Feliciano 36 Units at 02/02/18 0851 insulin lispro 17 Units injection (rapid acting) (HumaLOG) 17 Units SUBCUTANEOUS w MEALS Som Feliciano ondansetron orally disintegrating 4 mg tab(s) (ZOFRAN ODT) 4 mg ORAL q 6 H PRN Zuhair Odonnell Delano 4 mg at 02/02/18 0807 acetaminophen 650 mg tab(s) (TYLENOL) 650 mg ORAL q 6 H PRN Leonard Santiagoubber 650 mg at 01/30/18 2137 insulin lispro injection (rapid acting) (HumaLOG) SUBCUTANEOUS w MEALS AND HS Francis Rachel 3 Units at 02/01/18 1656 simvastatin 40 mg tab(s) (ZOCOR) 40 mg ORAL AT BEDTIME Raymond (Gorge) Claire 40 mg at 02/01/18 2113 ipratropium-albuterol 3 mL nebulizer solution (DUONEB) 3 mL INHALATION q 4 H PRN Raymond (Gorge) Claire 3 mL at 02/01/[address] 40 mg tab(s) (PROTONIX) 40 mg ORAL BID Raymond (Pa) Claire 40 mg at 02/02/18 0850 bacitracin 1 application topical ointment 1 application TOPICAL BID Raymond (Gorge) Claire 1 application at 02/02/18 1031 isosorbide mononitrate ER 60 mg tab(s) (IMDUR) 60 mg ORAL DAILY Raymond (Pa) Claire 60 mg at 02/02/18 0851 0.9% NaCl 3-5 mL 3-5 mL INTRAVENOUS q 12 H Raymond (Gorge) Claire 5 mL at 02/02/18 0900 dextrose 40 % 15 g 15 g ORAL PRN Raymond (Gorge) Claire Or glucagon 1 mg injection (GLUCAGEN) 1 mg INTRAMUSCULAR PRN Raymond (Gorge) Claire Or dextrose 50% in water 25 mL syringe 12.5 g INTRAVENOUS PRN Raymond Nayak) Claire miconazole 2 % 1 application topical powder (LOTRIMIN AF, DESENEX) 1 application TOPICAL BID Gloria Singer 1 application at 02/02/18 1034 OBJECTIVE PHYSICAL EXAM: BP 121/52 Pulse 50 Temp (Src) 97.8 (Oral) Resp 18 Ht 5' 8 (1.73m) Wt 232 lb 8 oz (105.5kg) SpO2 99% BMI 35.36 kg/(m2). GENERAL: Alert, no distress, cooperative, Morbidly Obese SKIN: Skin color, texture, turgor normal. No rashes or lesions. EYES: PERRLA, EOMI OROPHARYNX: Lips, mucosa, and tongue normal. Teeth and gums normal. Oropharynx normal. NECK: No jugulovenous distention, No carotid bruits, Carotid pulse normal contour, Supple LUNGS: Lungs clear to auscultation, Good diaphragmatic excursion CARDIAC: Normal S1 and S2; no rubs, murmurs, or gallops ABDOMEN: Abdomen soft, non-tender, BS normal, No masses or organomegaly EXTREMITIES: Extremities normal, no deformities, edema, clubbing or skin discoloration. Good capillary refill., No ulcers NEURO: Gait normal. Reflexes normal and symmetric. Sensation grossly intact, Cranial nerves II-XII intact PULSES: 2+ radial, 2+ carotid DATA: Diagnostic tests reviewed for today's visit: Most recent labs CBC: WBC 7.63 02/02/2018 HEMOGLOBIN 10.9 02/02/2018 HEMATOCRIT 34.1 02/02/2018 PLATELETS 155 02/02/2018 CMP: Sodium 136 02/02/2018 Potassium 5.3 02/02/2018 BUN 75 02/02/2018 Creatinine 2.51 02/02/2018 Glucose 123 02/02/2018 Chloride 97 02/02/2018 CO2 Content, Venous 27 02/02/2018 VTE Prophylaxis: Patient is already anti-coagulated. Disposition: Home with [facility] Plan of care discussed with: Patient SIGNATURE: Radha Edmonds MD DATE: February 02, 2018 TIME: 7:39 PM CASE MANAGEM Observed: 02/02/2018 Status: COMPLETED Source: [place] 3:06 PM CLINIC OTHER CAMPUS REPOSITORY HNO ID: [id number] Author: Vanessa Loomis (Rn) ALLYSON Gonzalez Service: Case Management Author Type: Registered Nurse Type: Care Mgt Progress Note Filed: 02/02/2018 3:08 PM Note Text: CARE MANAGEMENT PROGRESS NOTE SERVICE DATE: 02/02/2018 SERVICE TIME: 3:07 PM LOS: 5 days EMR reviewed. Spoke to DR Edmonds, spoke to bedside RN Meenakshi. Nephro on consult, Labs off Kidney function. From home with dtr. On Chronic 2.5 LO2 at home., active with [facility]. PCP Dr. Kamara, any day/time OK for f/u appt. Dtr will transport. SIGNATURE: Vanessa Gonzalez RN PATIENT NAME: Luz Baca DATE: February 02, 2018 TIME: 3:07 PM PAGER/CONTACT #: - CONSULT PROG Observed: 02/02/2018 Status: COMPLETED Source: [place] 10:57 AM CLINIC OTHER CAMPUS REPOSITORY O ID: [id number] Author: Shruti Nair Service: Endocrinology Author Type: Physician Type: Consult Progress Note Filed: 02/02/2018 11:44 AM Note Text: DIABETES PROGRESS NOTE PATIENT NAME: Luz Baca SERVICE DATE: 02/02/2018 ASSESSMENT AND PLAN Ms. Baca is a 77 year old female with a 15 year history of Diabetes Mellitus Type 2 hyperglycemia who was admitted on 01/27/2018 for chest pain. We are consulted for diabetes mgmt. Uncontrolled type 2 diabetes BG were above goal yesterday, fasting has improved lantus and humalog doses were increased yesterday ? Continue Lantus 48 units QHS and 34 units QAM ? continue Humalog 17 units AC TID ? continue Supplemental Sliding Scale: Humalog Program #2 AC #1 HS ? Accuchecks: AC/HS ? notify endocrinology if BG < 80 or > 200 Interval HPI +nausea and diarrhea Decreased PO intake Preadmission insulin regimen: Lantus 50 units Q am and 36 units at HS Humalog 12 units TID and Q AC pen Sliding scale: One unit for every 25 mg/dL PAST MEDICAL HISTORY: PAST MEDICAL HISTORY Diagnosis Date - Arthritis - Atrial fibrillation (HCC) - CAD (coronary artery disease) stents x9, defibrillator, CABG. Seeing Dr. Cardona - Cardiac defibrillator in place - Cardiomegaly - Carotid artery disease (HCC) left - Chronic kidney disease (CKD) stage G3b/A2, moderately decreased glomerular filtration rate (GFR) between 30-44 mL/min/1.73 square meter and albuminuria creatinine ratio between 30-299 mg/g Dr. Martin - COPD (chronic obstructive pulmonary disease) ([facility]) Dr. Cruz - Depression - Diabetes ([facility]) - Diabetic neuropathy ([facility]) - Edema - GERD (gastroesophageal reflux disease) - Gout with hyperuricemia - HH (hiatus hernia) - HOCM (hypertrophic obstructive cardiomyopathy) ([facility]) S/P Septal Myectomy in 2003. Now with LVEF 50% and mod/severe pulm HTN. - HTN (hypertension) - Hyperlipidemia - Morbid obesity with BMI of 40.0-44.9, adult ([facility]) - Sleep apnea 2011 not on CPAP, unable to tolerate mask 02/2017 - SVT (supraventricular tachycardia) ([facility]) NSVT and questionable VT in 2003 post op CURRENT MEDICATION: Current Facility-Administered Medications: docusate sodium 100 mg cap(s) (COLACE) 100 mg ORAL BID Radha Adams) Thuestad 100 mg at 02/02/18 1046 polyethylene glycol 3350 17 g packet (MIRALAX, GLYCOLAX) 17 g ORAL DAILY Radha Adams) Thuestad 17 g at 02/02/18 1046 bisacodyl 10 mg suppository (DULCOLAX) 10 mg RECTAL DAILY PRN Radha Adams) Linkuestad NaCl 0.9% iv infusion 75 mL/hr INTRAVENOUS CONTINUOUS Malena A Argekar apixaban 2.5 mg tab(s) (ELIQUIS) 2.5 mg ORAL BID Radha Adams) Thuestad 2.5 mg at 02/02/18 0850 gabapentin 200 mg cap(s) (NEURONTIN) 200 mg ORAL BID Malena A Argekar 200 mg at 02/02/18 0850 insulin glargine 50 Units injection (long acting) (LANTUS) 50 Units SUBCUTANEOUS AT BEDTIME Som Feliciano 50 Units at 02/01/18 2113 insulin glargine 36 Units injection (long acting) (LANTUS) 36 Units SUBCUTANEOUS DAILY (8 AM) Som Feliciano 36 Units at 02/02/18 0851 insulin lispro 17 Units injection (rapid acting) (HumaLOG) 17 Units SUBCUTANEOUS w MEALS Som Feliciano ondansetron orally disintegrating 4 mg tab(s) (ZOFRAN ODT) 4 mg ORAL q 6 H PRN Zuhair Hdztopher Wick 4 mg at 02/02/18 0807 acetaminophen 650 mg tab(s) (TYLENOL) 650 mg ORAL q 6 H PRN Leonard Santiagoduke 650 mg at 01/30/18 2137 insulin lispro injection (rapid acting) (HumaLOG) SUBCUTANEOUS w MEALS AND HS Francis Rachel 3 Units at 02/01/18 1656 simvastatin 40 mg tab(s) (ZOCOR) 40 mg ORAL AT BEDTIME Raymond Nayak) Claire 40 mg at 02/01/18 2113 ipratropium-albuterol 3 mL nebulizer solution (DUONEB) 3 mL INHALATION q 4 H PRN Raymond (Gorge) Claire 3 mL at 02/01/[address] 40 mg tab(s) (PROTONIX) 40 mg ORAL BID Raymond (Gorge) Claire 40 mg at 02/02/18 0850 bacitracin 1 application topical ointment 1 application TOPICAL BID Raymond Nayak) Claire 1 application at 02/02/18 1031 isosorbide mononitrate ER 60 mg tab(s) (IMDUR) 60 mg ORAL DAILY Raymond (Gorge) Claire 60 mg at 02/02/18 0851 0.9% NaCl 3-5 mL 3-5 mL INTRAVENOUS q 12 H Raymond Nayak) Claire 5 mL at 02/02/18 0900 dextrose 40 % 15 g 15 g ORAL PRN Raymond (Gorge) Claire Or glucagon 1 mg injection (GLUCAGEN) 1 mg INTRAMUSCULAR PRN Raymond (Tiff Rangel Or dextrose 50% in water 25 mL syringe 12.5 g INTRAVENOUS PRN Raymond (Gorge) Claire miconazole 2 % 1 application topical powder (LOTRIMIN AF, DESENEX) 1 application TOPICAL BID Gloria Sabai 1 application at 02/02/18 1034 CURRENT ALLERGIES: Allergies As of Date: 01/27/2018 Allergen Noted Reaction ASPIRIN 01/20/2018 Other: See Comments BACTRIM [SULFAMETHOXAZOLE-TRIMETH*05/17/2017 Other: See Comments LATEX 05/17/2017 Rash and Itching PENICILLINS 07/14/2004 Rash and Itching TETRACYCLINE 09/29/2010 Rash and GI Upset ATORVASTATIN 05/17/2017 Rash CODEINE 05/17/2017 Other: See Comments DILAUDID [HYDROMORPHONE (BULK)] 05/17/2017 Mental Status Change MEPERIDINE 07/14/2004 PENTAZOCINE 07/14/2004 PIOGLITAZONE 05/17/2017 Unknown PROPOXYPHENE 07/14/2004 Fully Assessed 01/27/2018 COMPLETE REVIEW OF SYSTEMS: General: no fever, chills or acute changes in weight in the last 6 months Skin: no rashes, pruritis or dry skin Cardiac: denies chest pain, heart palpitations or orthopnea Pulmonary: denies wheezing, productive cough or exertional dyspnea GI: denies nausea, vomiting, diarrhea or constipation Neuro: denies numbnes/tingling in hands or feet and denies seizures Musc: denies history of upper or lower extremity weakness Endocrine: denies polyuria, polydipsia, nocturia, blurry vision or excessive fatigue Hematology: Negative for anemia, easy bleeding and bruising. OBJECTIVE PHYSICAL EXAM: BP 93/77 Pulse 61 Temp 36.5 ?C (97.7 ?F) (Oral) Resp 20 Ht 172.7 cm (5' 8) Wt 105.5 kg (232 lb 8 oz) SpO2 97% BMI 35.35 kg/m2 General: Well appearing, alert, in no acute distress, on oxygen Skin: skin color, texture, turgor normal, no rashes or lesions. Heart: RRR without murmur, gallop, or rubs. No ectopy Pulmonary: Lungs clear to auscultation. No wheezing, rhonchi, rales Abdomen: soft, non-tender, positive bowel sounds Extremities: + edema, chronic venous stasis, no calluses or ulcers present. DATA: Diagnostic tests reviewed for today: Recent Labs 02/02/18 0803 02/01/18 2100 02/01/18 1640 02/01/18 1147 02/01/18 0803 01/31/18 2016 01/31/18 1909 01/31/18 1638 01/31/18 1254 01/31/18 0828 01/30/18 2020 01/30/18 1623 01/30/18 1215 PCGLUCOSE 127* 107* 186* 299* 249* 244* 249* 261* 300* 279* 289* 193* 115* Glucose, Point of Care Date Value Ref Range Status 02/02/2018 127 (A) 74 - 99 mg/dL Final Comment: Meter ID:[id number] SIGNATURE: Shruti Nair MD DATE: February 02, 2018 CONSULT PROG Observed: 02/02/2018 Status: COMPLETED Source: [place] 10:38 AM CLINIC OTHER CAMPUS REPOSITORY HNO ID: [id number] Author: Malena Bray Service: Nephrology Author Type: Physician Type: Consult Progress Note Filed: 02/02/2018 10:44 AM Note Text: Patient seen and examined. She is feeling nauseated this AM. Not eating well. Doesn't feel more swollen or more SOB. She is feeling constipated Blood pressure 93/77, pulse 61, temperature 36.5 ?C (97.7 ?F), temperature source Oral, resp. rate 20, height 172.7 cm (5' 8), weight 105.5 kg (232 lb 8 oz), SpO2 97 %. Intake/Output Summary (Last 24 hours) at 02/02/18 1039 Last data filed at 02/01/18 1700 Gross per 24 hour Intake 510 ml Output 200 ml Net 310 ml Gen: weak Resp: diminished BS [facility]: no rub Abd: soft Ext: trace to 1+ edema K 5.3, Cr 2.5, Uric 15.4 Hb 10.9 Urine Na < 10 Vit D and PTH pending Renal US no obstruction Impression: 1. ROMÁN on CKD 3 due to diuresis of right > left CHF -poor renal perfusion suggested by low urine Na 2. Edema multifactorial from right sided CHF and gabapentin 3. Hyperkalemia due to #1 and recent spironolactone 4. Underlying CKD 3 followed by my partner Dr. Martin 5. Hyperuricemia ? Plan: 1. Continue to hold all diuretics 2. IVF with NS x 1.5L again 3. Low K diet; no potassium supplementation 4. Follow up Vit D and PTH 5. Check renal US 6. Check urine alb/creat 7. Decreased gabapentin to 200mg BID due to contribution to edema 8. Hold off allopurinol due to upset stomach currently; will recheck uric acid tomorrow after IVF ? CBC Collected: 02/02/2018 Status: F Source: [place] 5:29 AM [facility] OTHER CAMPUS REPOSITORY TYPE CODE TESTS RESULT OUT OF REFERENCE UNITS RANGE LAB WBC 3.70-11.00 k/uL WBC 7.63 LAB RBC 3.90-5.20 m/uL Low RBC 3.48 LAB HGB 11.5-15.5 g/dL Low Hemoglobin 10.9 LAB HCT 36.0-46.0 % Low Hematocrit 34.1 LAB MCV 80.0-100.0 fL MCV 98.0 LAB MCH 26.0-34.0 pG MCH 31.3 LAB MCHC 30.5-36.0 g/dL MCHC 32.0 LAB RDWCV 11.5-15.0 % RDW-CV High 15.4 LAB PLTCT 150-400 k/uL Platelet Count 155 LAB MPV 9.0-12.7 fL MPV 9.5 Performed By: #### CBC, CMP #### [facility] [address] [facility] [phone] COMP METABOLIC PANEL Collected: 02/02/2018 Status: F Source: [place] 5:29 AM CLINIC OTHER CAMPUS REPOSITORY TYPE CODE TESTS RESULT OUT OF REFERENCE UNITS RANGE LAB TP 6.3-8.0 g/dL Protein, Total 6.5 LAB ALB 3.9-4.9 g/dL Low Albumin 3.3 LAB CA 8.5-10.2 mg/dL Calcium, Total 8.7 LAB TBIL 0.2-1.3 mg/dL Bilirubin, Total 0.4 LAB ALKP 32-117 U/L Alkaline Phosphatase 78 LAB AST 13-35 U/L AST 17 LAB GLU 74-99 mg/dL Glucose High 123 Result Comment: The [place] [employer] (ADA) provides guidance for cutoff values for fasting glucose and random glucose. The ADA defines fasting as no caloric intake for at least 8 hours. Fas ting plasma glucose results between 100 to 125 mg/dL indicate increased risk for diabetes (prediabetes). Fasting plasma glucose results greater than or equal to 126 mg/dL meet the criteria for diagnosis of diabetes. In the absence of unequivocal hyperglycemia, results should be confirmed by repeat testing. In a patient with classic symptoms of hyperglycemia or hyperglycemic crisis, random plasma glucose results greater than or equal to 200 mg/dL meet the criteria for diagnosis of diabetes. Reference: Standards of Medical Care in Diabetes 2016, [place] [employer]. Diabetes Care. 2016.39(Suppl 1). LAB BUN 7-21 mg/dL BUN High 75 LAB CRET 0.58-0.96 mg/dL Creatinine High 2.51 LAB NA 136-144 mmol/L Sodium 136 LAB K 3.7-5.1 mmol/L Potassium High 5.3 LAB CL 97-105 mmol/L Chloride 97 LAB CO2 22-30 mmol/L CO2 27 LAB AGAP 9-18 mmol/L Anion Gap 12 LAB ALT 7-38 U/L ALT 19 LAB GFRAA eGFR- Amer. 23 LAB GFRNAA . eGFR-All Other Races 19 Result Comment: eGFR (Estimated GFR) Units of measure: mL/min/1.73 meters squared eGFR is derived from the reexpressed MDRD Study equation using the following parameters: serum creatinine, age, gender and race. The creatinine assay has been calibrated to be traceable to IDMS. An eGFR <60 mL/min/1.73m2 for >3 months is consistent with chronic kidney disease. Refer to KDOQI guidelines for clinical interpretation. In patients with unstable renal function, e.g. those with acute kidney injury, the eGFR may not accurately reflect actual GFR. Performed By: #### CBC, CMP #### [facility] [address] [place] [address] URIC ACID Collected: 02/02/2018 Status: F Source: [place] 5:29 AM [facility] OTHER CAMPUS REPOSITORY TYPE CODE TESTS RESULT OUT OF RANGE REFERENCE UNITS LAB URIC 2.5-6.6 mg/dL High Uric Acid 15.4 Performed By: #### URIC #### [place] [address] #### PTHI, VITD #### [facility] [address] [place] [address] PTH, INTACT Collected: 02/02/2018 Status: F Source: [place] 5:29 AM [facility] OTHER [place] REPOSITORY TYPE CODE TESTS RESULT OUT OF REFERENCE UNITS RANGE LAB PTH 15-65 pg/mL High PTH, Intact 198 Performed By: #### URIC #### [facility] [address] [place] [address] #### PTHI, VITD #### [facility] [address] [place] [address] VITAMIN D 25 HYDROXY Collected: 02/02/2018 Status: F Source: [place] 5:29 AM [facility] OTHER CAMPUS REPOSITORY TYPE CODE TESTS RESULT OUT OF REFERENCE UNITS RANGE LAB VITD 31.0-80.0 ng/mL Low Vitamin D 25 14.9 Hydroxy Result Comment: Classification of 25 [place] Vitamin D status: Insufficiency/Moderate Deficiency: < or = 30 ng/mL Sufficiency/Optimal Levels: 31 to 80 ng/mL Toxicity: > 100 ng/mL Test performed by chemiluminescent immunoassay. Performed By: #### URIC #### [facility] [address] [facility] [phone] #### PTHI, VITD #### [facility] [address] [place] [id number] PLAN OF CARE Observed: 02/01/2018 Status: COMPLETED Source: [place] 6:00 PM [facility] REPOSITORY HNO ID: [id number] Author: Som Feliciano Service: Endocrinology Author Type: Physician Type: Plan of Care Filed: 02/01/2018 6:02 PM Note Text: Component Latest Ref Rng AND Units 01/31/2018 01/31/2018 01/31/2018 01/31/2018 01/31/2018 02/01/2018 02/01/2018 02/01/2018 8:28 AM 12:54 PM 4:38 PM 7:09 PM 8:16 PM 8:03 AM 11:47 AM 4:40 PM Glucose, Point of Care 74 - 99 mg/dL 279 (A) 300 (A) 261 (A) 249 (A) 244 (A) 249 (A) 299 (A) 186 (A) Impression: IDDM: Uncontrolled. Still blood sugar running in 200 range with just a few reading below 200 today. Plan: Go up on Lantus dose to 50 units at at bedtime and 30 units in the morning. Also go up on Humalog to 17 units before each meal. Monitor blood sugar before each meal and at bedtime. Call Endo ux information architect if blood sugar is less than 80 or more than 210. Som Feliciano MD February 01, 2018 US KIDNEY/BLADDER Observed: 02/01/2018 Status: F Source: [place] 4:43 PM [facility] REPOSITORY * * *Final Report* * * DATE OF EXAM: Feb 01 2018 4:43PM VADIM 1055 - US KIDNEY/BLADDER / PROCEDURE REASON: ROMÁN (acute kidney injury) (HCC) * * * * Physician Interpretation * * * * EXAMINATION: RENAL ULTRASOUND HISTORY: Acute renal injury TECHNIQUE: Sonography of the kidneys and urinary bladder was performed. Images were obtained and stored in a permanent archive. MQ: UR_1 COMPARISON: None RESULT: Right Kidney: -Renal length: 12.2 cm -Parenchyma: Normal parenchymal echogenicity. Normal parenchymal thickness. -Collecting system: No hydronephrosis. -Calculus: No echogenic, shadowing calculus. -Lesion: None. Left Kidney: -Renal length: 10.6 cm -Parenchyma: Normal parenchymal echogenicity. Normal parenchymal thickness. -Collecting system: No hydronephrosis. -Calculus: No echogenic, shadowing calculus. -Lesion: None. Bladder: Partially distended with no focal abnormality seen. Bilateral ureteral jets are demonstrated. IMPRESSION: No pathologic process is seen. Service Delivery Supervisor: SALINAS Transcribe Date/Time: Feb 01 2018 4:54P Dictated by : GALINDO BECKER MD This examination was interpreted and the report reviewed and electronically signed by: GALINDO BECKER MD on Feb 01 2018 4:57PM EST [id number] SODIUM,URINE,RANDOM Collected: Status: F Source: [place] 02/01/2018 4:41 PM CLINIC OTHER CAMPUS REPOSITORY TYPE CODE TESTS RESULT OUT OF RANGE REFERENCE UNITS LAB UNAR 14-216 mmol/L Low <10 Sodium,Urine ,Random Result Comment: Rechecked Performed By: #### UNAR #### [facility] [address] [facility] [phone] CONSULT Observed: 02/01/2018 Status: COMPLETED Source: [place] 3:47 PM CLINIC OTHER CAMPUS REPOSITORY HNO ID: [id number] Author: Malena Bray Service: Nephrology Author Type: Physician Type: Consults Filed: 02/01/2018 3:58 PM Note Text: CONSULT: NEPHROLOGY SERVICE PATIENT NAME: Luz Baca DATE of SERVICE: 02/01/18 TIME of SERVICE: 3:47 PM REASON FOR CONSULT: ROMÁN on CKD 3 REQUESTING PHYSICIAN: Dr. Edmonds PRIMARY CARE PHYSICIAN: Jameson Kamara MD Ms. Baca is a 77 year old female who presents for chest pain and SOB. She has a history of hypertrophic CM s/p septal myomectomy and CABG x 2 in the past with ICD placement. Most recent echo demonstrates a relatively preserved LVEF but mod/severe pulm HTN. She also has a history of CKD 3 with a baseline Cr in the mid/high 1 range although this is variable depending on volume status. She was admitted last week for possible CHF; she was diuresed with an expected rise in creatinine from 1.5 to 1.9. She was seen by my partner Dr. Martin last week for her CKD 3. Unfortunately, was readmitted with chest pain and SOB with edema. She was started on IV lasix. Cr has been rising since admission from 1.5 to 2.3. She was also given spironolactone as well. Renal evaluation requested for volume management and ROMÁN workup. In regards to CKD 3, she has a variable baseline Cr and microalbuminuria. I don't see any recent Vit D or PTH. Hb is > 10. No recent renal imaging. Risk factors include chronic diuretics, DM. She is on chronic gabapentin. No history of recent NSAIDs. PAST MEDICAL HISTORY: PAST MEDICAL HISTORY Diagnosis Date - Arthritis - Atrial fibrillation (HCC) - CAD (coronary artery disease) stents x9, defibrillator, CABG. Seeing Dr. Cardona - Cardiac defibrillator in place - Cardiomegaly - Carotid artery disease ([facility]) left - Chronic kidney disease (CKD) stage G3b/A2, moderately decreased glomerular filtration rate (GFR) between 30-44 mL/min/1.73 square meter and albuminuria creatinine ratio between 30-299 mg/g Dr. Martin - COPD (chronic obstructive pulmonary disease) ([facility]) Dr. Cruz - Depression - Diabetes ([facility]) - Diabetic neuropathy ([facility]) - Edema - GERD (gastroesophageal reflux disease) - Gout with hyperuricemia - HH (hiatus hernia) - HOCM (hypertrophic obstructive cardiomyopathy) ([facility]) S/P Septal Myectomy in 2003. Now with LVEF 50% and mod/severe pulm HTN. - HTN (hypertension) - Hyperlipidemia - Morbid obesity with BMI of 40.0-44.9, adult ([facility]) - Sleep apnea 2011 not on CPAP, unable to tolerate mask 02/2017 - SVT (supraventricular tachycardia) ([facility]) NSVT and questionable VT in 2003 post op PAST SURGICAL HISTORY: PAST SURGICAL HISTORY Procedure Laterality Date - CHOLECYSTECTOMY HX - HEART SURGERY HX 07/18/2004 Septal myectomy and CABG x2 (DEBORAH-LAD, SVG-PDA). - HYSTERECTOMY HX - IANDD PERIANAL ABSCESS - PAST SURGICAL HISTORY OF left breast nodule removed - PAST SURGICAL HISTORY OF skin lesions removed FAMILY HISTORY: FAMILY HISTORY Problem Relation Age of Onset - Hypertension Mother living at age 93, HTN - Heart Failure Mother [place] - Cancer Father age 71, lung cancer SOCIAL HISTORY: Social History Substance Use Topics - Smoking status: Former Smoker Packs/day: 2.50 Years: 43.00 Types: Cigarettes Start date: 1961 Quit date: 07/07/2004 - Smokeless tobacco: Never Used - Alcohol use No MEDICATIONS: Prior to Admission Medications: Prescriptions Prior to Admission: furosemide (LASIX) 40 mg tablet Take 80 mg by mouth twice daily. Disp: Rfl: 01/27/2018 at 0800 gabapentin (NEURONTIN) 300 mg capsule Take 600 mg by mouth twice daily. Disp: Rfl: 01/27/2018 at 0800 insulin aspart U-100 (NOVOLOG FLEXPEN U-100 INSULIN) 100 unit/mL inpn Inject 12 Units subcutaneously three times daily with meals. Disp: Rfl: 01/27/2018 at Unknown time insulin glargine (LANTUS SOLOSTAR U-100 INSULIN) 100 unit/mL (3 mL) inpn Inject 50 Units subcutaneously every morning. Disp: Rfl: 01/27/2018 at 0800 insulin glargine (LANTUS SOLOSTAR U-100 INSULIN) 100 unit/mL (3 mL) inpn Inject 36 Units subcutaneously daily at bedtime. Disp: Rfl: 01/26/[address] (PROTONIX) 40 mg tablet Take 40 mg by mouth twice daily. Disp: Rfl: 01/27/2018 at 0800 potassium chloride (K-TAB) 10 mEq tablet Take 10 mEq by mouth daily with breakfast. Disp: Rfl: 01/27/2018 at 0800 bacitracin (ANTIBIOTIC, BACITRACIN ZINC,) ointment Apply 1 application to affected area twice daily. Disp: 1 Tube Rfl: 1 01/27/2018 at Unknown time nystatin (NYSTOP) powder Apply 1 application to affected area three times daily. Disp: 60 g Rfl: 2 Unknown at Unknown time isosorbide mononitrate ER (IMDUR) 60 mg 24 hr tablet Take 1 tablet by mouth once daily. Disp: 30 tablet Rfl: 5 01/27/2018 at 0800 apixaban (ELIQUIS) 5 mg tab(s) Take 5 mg by mouth twice daily. Disp: Rfl: 01/27/2018 at 0800 simvastatin (ZOCOR) 40 mg tablet Take 40 mg by mouth every morning. Disp: Rfl: 01/27/2018 at 0800 spironolactone (ALDACTONE) 25 mg tablet Take 1 tablet by mouth once daily. Disp: Rfl: 01/27/2018 at 0800 ipratropium-albuterol (DUONEB) 0.5 mg-3 mg(2.5 mg base)/3 mL nebu Inhale 3 mL as instructed every 4 hours as needed. Disp: 180 Vial Rfl: 3 Unknown at Unknown time guaiFENesin-dextromethorphan (ROBITUSSIN DM) 100-10 mg/5 mL syrup Take 5-10 mL by mouth every 6 hours as needed for Cough. Disp: 118 mL Rfl: 0 Unknown at Unknown time nitroglycerin sublingual (NITROQUICK) 0.4 mg SL tablet Dissolve 1 tablet under the tongue every 5 minutes as needed. Disp: 1 Bottle of 25 Rfl: 0 Unknown at Unknown time OXYGEN, HOME THERAPY, Inhale 2.5 L/min as instructed continuous. 3 L/min when leaves home. Disp: Rfl: Unknown at Unknown time gabapentin (NEURONTIN) 300 mg capsule Take 2 capsules by mouth three times daily for 30 days. (Patient taking differently: Take 600 mg by mouth twice daily. ) Disp: Rfl: 12/09/2017 Current hospital medications: apixaban 2.5 mg tab(s) (ELIQUIS) 2.5 mg ORAL BID NaCl 0.9% iv infusion 75 mL/hr INTRAVENOUS CONTINUOUS gabapentin 200 mg cap(s) (NEURONTIN) 200 mg ORAL BID insulin lispro 15 Units injection (rapid acting) (HumaLOG) 15 Units SUBCUTANEOUS w MEALS ondansetron orally disintegrating 4 mg tab(s) (ZOFRAN ODT) 4 mg ORAL q 6 H PRN insulin glargine 34 Units injection (long acting) (LANTUS) 34 Units SUBCUTANEOUS DAILY (8 AM) insulin glargine 48 Units injection (long acting) (LANTUS) 48 Units SUBCUTANEOUS AT BEDTIME acetaminophen 650 mg tab(s) (TYLENOL) 650 mg ORAL q 6 H PRN insulin lispro injection (rapid acting) (HumaLOG) SUBCUTANEOUS w MEALS AND HS simvastatin 40 mg tab(s) (ZOCOR) 40 mg ORAL AT BEDTIME ipratropium-albuterol 3 mL nebulizer solution (DUONEB) 3 mL INHALATION q [address] 40 mg tab(s) (PROTONIX) 40 mg ORAL BID bacitracin 1 application topical ointment 1 application TOPICAL BID isosorbide mononitrate ER 60 mg tab(s) (IMDUR) 60 mg ORAL DAILY 0.9% NaCl 3-5 mL 3-5 mL INTRAVENOUS q 12 H dextrose 40 % 15 g 15 g ORAL PRN glucagon 1 mg injection (GLUCAGEN) 1 mg INTRAMUSCULAR PRN dextrose 50% in water 25 mL syringe 12.5 g INTRAVENOUS PRN miconazole 2 % 1 application topical powder (LOTRIMIN AF, DESENEX) 1 application TOPICAL BID ALLERGIES: ALLERGIES Allergen Reactions - Aspirin Other: See Comments Patient states that she bled out every orifice, sts not allowed to take it at all. Patient states she was bleeding out of nose and mouth after one dose. - Bactrim [Sulfametho* Other: See Comments My throat swells up. - Latex Rash, Itching Itching and welts. No wheezing or shortness of breath. - Penicillins Rash, Itching Tolerated ceftriaxone during 11/2017 admission and cefepime during 12/2017 admission - Tetracycline Rash, GI Upset Emesis and diarrhea. - Atorvastatin Rash - Codeine Other: See Comments Numbness - Dilaudid [Hydromorp* Mental Status Change - Meperidine - Pentazocine - Pioglitazone Unknown - Propoxyphene COMPLETE REVIEW OF SYSTEMS: PAIN ASSESSMENT: Negative for pain, history of chronic pain, or current treatment for a chronic pain condition. GENERAL: No weight loss, malaise or fevers HEENT: Negative for frequent or significant headaches NECK: Negative for lumps, goiter, pain and significant neck swelling RESPIRATORY: chronic SOB and O2 requirement CARDIOVASCULAR: +LE edema, improved chest pain GI: No nausea, vomiting, or diarrhea : Negative CARE ASSOCIATE: Not reviewed MUSCULOSKELETAL: Negative for joint pain or swelling, back pain or muscle pain SKIN: Negative for lesions, rash, and itching PSYCH: Negative for sleep disturbance, mood disorder and recent psychosocial stressors HEMATOLOGY/LYMPHOLOGY: Negative for prolonged bleeding, bruising easily or swollen nodes ENDOCRINE: Negative for cold or heat intolerance, polyuria, polydipsia and goiter NEURO: No history of headaches, syncope, paralysis, seizures or tremors PHYSICAL EXAM: Patient Vitals for the past 24 hrs: BP Temp Temp src Pulse Resp SpO2 Weight 02/01/18 1532 99/53 37 ?C (98.6 ?F) Oral 78 18 98 % - 02/01/18 1112 117/90 36.7 ?C (98 ?F) Oral 61 19 94 % - 02/01/18 0820 - - - 63 - - - 02/01/18 0805 - - - 63 18 96 % - 02/01/18 0724 118/78 36.7 ?C (98.1 ?F) Oral (!) 55 18 96 % - 02/01/18 0418 112/56 37 ?C (98.6 ?F) Oral 60 18 96 % - 02/01/18 0400 - - - - - - 99.2 kg (218 lb 11.1 oz) 01/31/18 2345 109/50 36.9 ?C (98.4 ?F) Oral 63 20 96 % - 01/31/182039 - - - (!) 48 16 - - 01/31/182031 - - - (!) 46 16 97 % - 01/31/182014 (!) 128/42 36.8 ?C (98.2 ?F) Oral (!) 41 18 98 % - 01/31/18 1637 (!) 108/36 36.8 ?C (98.2 ?F) Oral (!) 54 20 97 % - Body mass index is 33.25 kg/(m2). GENERAL: Alert, no distress, cooperative SKIN: Skin color, texture, turgor normal. No rashes or lesions. HEAD/SINUSES: No significant findings EYES: EOMI EARS: External ears normal, canals clear NOSE: Nares normal. Septum midline. OROPHARYNX: Lips, mucosa, and tongue normal. Teeth and gums normal. Oropharynx normal. NECK: thick neck LUNGS: lungs clear to auscultation CARDIAC: no rub ABDOMEN: soft EXTREMITIES: 1+ edema with some venous stasis dermatitis NEURO: no obvious deficits DATA: Recent Labs 02/01/18 0432 01/31/18 0436 01/30/18 0431 CREAT 2.30* 2.19* 1.99* BUN 69* 58* 52* NA 136 137 136 K 5.2* 4.9 4.3 CHLOR 95* 95* 96* WBC 9.04 8.37 8.64 ALB 3.1* 3.1* 3.2* ALKPHOS 68 75 76 AST 16 19 18 ALT 18 20 21 ASSESSMENT AND PLAN: 1. ROMÁN on CKD 3 due to diuresis of right > left CHF 2. Edema multifactorial from right sided CHF and high dose gabapentin 3. Hyperkalemia due to #1 and recent spironolactone 4. Underlying CKD 3 followed by my partner Dr. Martin Plan: 1. Hold furosemide and spironolactone 2. IVF x 1 liter and monitor pulmonary status 3. Low K diet; no potassium supplementation 4. Check Vit D, PTH and uric acid 5. Check renal US 6. Check urine alb/creat and sodium 7. Decrease gabapentin to 200mg BID due to contribution to edema Thanks, SIGNATURE: Malena Bray MD DATE: February 01, 2018 TIME: 3:47 PM February 01, 2018 02/01/2018 PROGRESS Observed: 02/01/2018 Status: COMPLETED Source: [place] 2:16 PM CLINIC OTHER CAMPUS REPOSITORY HNO ID: [id number] Author: Radha Edmonds Service: Hospital Medicine Author Type: Physician Type: Progress Notes Filed: 02/01/2018 2:18 PM Note Text: HOSPITAL MEDICINE PROGRESS NOTE Name: Luz Baca SERVICE DATE: 02/01/2018 SERVICE TIME: 2:16 PM LOCATION / ROOM: [place] [address] [address] Hospital Medicine/Primary Attending: Radha Edmonds MD NIGHT COVERAGE BETWEEN 5.30P-7.30A Page [phone] ASSESSMENT AND PLAN Principal Problem: ? Chest pain in adult ? HS trop 55, repeat 56 which is similar to readings at previous admission likely from CKD. Pt had external stress test 07/2017: no evidence of ischemia. Troponin 0.050 to 0.059 to 0.076, monitor on tele. Cards consulted. F/u recs - Chronic combined systolic and diastolic CHF (congestive heart failure) (HCC) ? Pt was just hospitalized for CHF exacerbation from 01/20/18-01/23/18. BNP 1300 improved from 2145 from last admit. But?still believe her symptoms related to volume overloaded Increased lasix to 80 mg BID IV and aldactone BID Cr got worse likely from volume loss from diarrhea and high dose of diurectics Would decrease lasix to 60 mg BID, diarrhea resolved, monitor cr, f/u cards recs - Atrial fibrillation (HCC) ? On eliquis. S/p pacemaker. Monitor on tele. - Pacemaker ? Had recent device interrogation 12/2017. - CAD (coronary artery disease) ? CABGx2 (DEBORAH-LAD, SVG-PDA ) in 2004 - Uncontrolled type 2 diabetes mellitus with stage 3 chronic kidney disease, with long-term current use of insulin (HCC) ? HbA1c: 12.0. ?Endocrinology consulted. On Lantus 30 units AM and 40 units HS, Humalog 12 uints with each meals plus sliding scale. Increased HS dose of Lantus to 44 units. Fasting sugars are improving - Essential hypertension ? Stable, continue home meds. ?? - Sleep apnea ? Wears CPAP at home, continue. ?? Acute renal failure: Creat worsning due to over diuresis Consulted nephro Slight improvement today. Hold off lasix and aldactone today ? Acute diarrhea Resolved ? Dc Planning SUBJECTIVE INTERVAL HPI: Feels better, no fever, chills, cp nor palpitations. No events overnight MEDICATIONS: Reviewed Current Facility-Administered Medications: apixaban 2.5 mg tab(s) (ELIQUIS) 2.5 mg ORAL BID Radha Adams) Kendal insulin lispro 15 Units injection (rapid acting) (HumaLOG) 15 Units SUBCUTANEOUS w MEALS Som eFliciano 15 Units at 02/01/18 1219 ondansetron orally disintegrating 4 mg tab(s) (ZOFRAN ODT) 4 mg ORAL q 6 H PRN Zuhair Wick 4 mg at 01/31/18 1939 insulin glargine 34 Units injection (long acting) (LANTUS) 34 Units SUBCUTANEOUS DAILY (8 AM) Som Feliciano 34 Units at 02/01/18 0945 insulin glargine 48 Units injection (long acting) (LANTUS) 48 Units SUBCUTANEOUS AT BEDTIME Som Feliciano 48 Units at 01/31/182142 acetaminophen 650 mg tab(s) (TYLENOL) 650 mg ORAL q 6 H PRN Shameer Khubber 650 mg at 01/30/18 2137 insulin lispro injection (rapid acting) (HumaLOG) SUBCUTANEOUS w MEALS AND HS Saminder Rachel 9 Units at 02/01/18 1221 gabapentin 600 mg cap(s) (NEURONTIN) 600 mg ORAL BID Raymond (Gorge) Claire 600 mg at 02/01/18 0936 simvastatin 40 mg tab(s) (ZOCOR) 40 mg ORAL AT BEDTIME Raymond (Gorge) Claire 40 mg at 01/31/18 2142 ipratropium-albuterol 3 mL nebulizer solution (DUONEB) 3 mL INHALATION q 4 H PRN Raymond (Gorge) Claire 3 mL at 02/01/[address] 40 mg tab(s) (PROTONIX) 40 mg ORAL BID Raymond (Gorge) Claire 40 mg at 02/01/18 0936 bacitracin 1 application topical ointment 1 application TOPICAL BID Raymond (Gorge) Claire 1 application at 02/01/18 0956 isosorbide mononitrate ER 60 mg tab(s) (IMDUR) 60 mg ORAL DAILY Raymond (Gorge) Claire 60 mg at 02/01/18 0937 0.9% NaCl 3-5 mL 3-5 mL INTRAVENOUS q 12 H Raymond (Gorge) Claire 5 mL at 02/01/18 0900 dextrose 40 % 15 g 15 g ORAL PRN Raymond (Gorge) Claire Or glucagon 1 mg injection (GLUCAGEN) 1 mg INTRAMUSCULAR PRN Raymond (Gorge) Claire Or dextrose 50% in water 25 mL syringe 12.5 g INTRAVENOUS PRN Raymond (Gorge) Claire miconazole 2 % 1 application topical powder (LOTRIMIN AF, DESENEX) 1 application TOPICAL BID Gloria Saabi 1 application at 01/31/18 2144 OBJECTIVE PHYSICAL EXAM: BP 117/90 Pulse 61 Temp (Src) 98 (Oral) Resp 19 Ht 5' 8 (1.73m) Wt 218 lb 11.1 oz (99.2kg) SpO2 94% BMI 33.26 kg/(m2). GENERAL: Alert, no distress, cooperative SKIN: Skin color, texture, turgor normal. No rashes or lesions. EYES: PERRLA, EOMI OROPHARYNX: Lips, mucosa, and tongue normal. Teeth and gums normal. Oropharynx normal. NECK: No jugulovenous distention, No carotid bruits, Carotid pulse normal contour, Supple LUNGS: Lungs clear to auscultation, Good diaphragmatic excursion CARDIAC: Normal S1 and S2; no rubs, murmurs, or gallops ABDOMEN: Abdomen soft, non-tender, BS normal, No masses or organomegaly EXTREMITIES: Extremities normal, no deformities, edema, clubbing or skin discoloration. Good capillary refill., No ulcers NEURO: Reflexes normal and symmetric. Sensation grossly intact, Cranial nerves II-XII intact PULSES: 2+ radial, 2+ carotid DATA: Diagnostic tests reviewed for today's visit: Most recent labs CBC: WBC 9.04 02/01/2018 HEMOGLOBIN 10.7 02/01/2018 HEMATOCRIT 33.8 02/01/2018 PLATELETS 137 02/01/2018 CMP: Sodium 136 02/01/2018 Potassium 5.2 02/01/2018 BUN 69 02/01/2018 Creatinine 2.30 02/01/2018 Glucose 226 02/01/2018 Chloride 95 02/01/2018 CO2 Content, Venous 28 02/01/2018 VTE Prophylaxis: Patient is already anti-coagulated. Disposition: Home with [facility] Plan of care discussed with: Patient SIGNATURE: Radha Edmonds MD DATE: February 01, 2018 TIME: 2:16 PM NURSING PROG Observed: 02/01/2018 Status: COMPLETED Source: [place] 1:49 PM CLINIC OTHER CAMPUS REPOSITORY [facility] ID: [id number] Author: Clifton OsheaRn) ALLYSON Aaron Service: Nursing Author Type: Registered Nurse Type: Nursing Progress Note Filed: 02/01/2018 5:52 PM Note Text: Nursing Progress Note Patient Name: Luz Baca [place] [facility] [id number] Daily Note:0730- rounds done and noted pt. Up in her bathroom. 0800-fsbs done and ssi and meal insulin and lantus all given, pt. Has her tray and eating well. Student Emily gave pt. meds and rhea. Well. Held some d/t bloody nose, and labs bun,creatine both elevating., notified and orders noted. 1330- noted, family here and updated, and then meds given earlier for her fsbs and meal coverage. Assessment unchanged. Pt. Now sitting on edge of her bed and no distress. 1400- pt. Sleeping on her left side and no distress.1600- pt. Awake and visiting with daughter at her bedside, U/S coming up, diet ordered, 0.9NS started infusing in her right arm iv and rhea. Well. U/S here and kidney/bladder done. 1700- fsbs done, ssi given and insulin with dinner tray given, and tray here. Pt. Sat up on edge of her bed. This note was completed by: Clifton Aaron RN NUTRITION Observed: 02/01/2018 Status: COMPLETED Source: [place] 10:19 AM CLINIC OTHER CAMPUS REPOSITORY [facility] ID: [id number] Author: Megan Gomez) Cielo Service: Nutrition Therapy Author Type: Registered Dietitian Type: Nutrition Filed: 02/01/2018 10:20 AM Note Text: NUTRITION THERAPY NOTE SERVICE DATE: 02/01/2018 SERVICE TIME: 914 Anthropometrics: Height: 172.7 cm (5' 8) Current Weight: Weight: 99.2 kg (218 lb 11.1 oz) Body mass index is 33.25 kg/(m2). Loss of lean body mass/visual muscle wasting: no Admitting Diagnosis: Cardiac enzymes elevated [R74.8] Present Diet Order: Carbohydrate Controlled Is the patient having any pain that is interfering with oral/enteral intake? No Allergies: ALLERGIES Allergen Reactions - Aspirin Other: See Comments Patient states that she bled out every orifice, sts not allowed to take it at all. Patient states she was bleeding out of nose and mouth after one dose. - Bactrim [Sulfametho* Other: See Comments My throat swells up. - Latex Rash, Itching Itching and welts. No wheezing or shortness of breath. - Penicillins Rash, Itching Tolerated ceftriaxone during 11/2017 admission and cefepime during 12/2017 admission - Tetracycline Rash, GI Upset Emesis and diarrhea. - Atorvastatin Rash - Codeine Other: See Comments Numbness - Dilaudid [Hydromorp* Mental Status Change - Meperidine - Pentazocine - Pioglitazone Unknown - Propoxyphene Reason for Visit: Nutrition screen: LOS No issues chewing, swallowing, nausea or emesis reported. Normal appetite/too good of an appetite Nursing Admission Assessment Malnutrition Score Tool: 0 Plan of Care: Recommendation No problems noted at this time. Will screen again within 7 days Discharge Plan: Home on carbohydrate controlled diet MNT Billing Type: Initial Assess/15 min 1 unit SIGNATURE: Megan Buck RD PATIENT NAME: Luz Baca DATE: February 01, 2018 TIME: 10:20 AM CBC Collected: 02/01/2018 Status: F Source: [place] 4:32 AM [facility] OTHER CAMPUS REPOSITORY TYPE CODE TESTS RESULT OUT OF REFERENCE UNITS RANGE LAB WBC 3.70-11.00 k/uL WBC 9.04 LAB RBC 3.90-5.20 m/uL Low RBC 3.44 LAB HGB 11.5-15.5 g/dL Low Hemoglobin 10.7 LAB HCT 36.0-46.0 % Low Hematocrit 33.8 LAB MCV 80.0-100.0 fL MCV 98.3 LAB MCH 26.0-34.0 pG MCH 31.1 LAB MCHC 30.5-36.0 g/dL MCHC 31.7 LAB RDWCV 11.5-15.0 % RDW-CV High 15.5 LAB PLTCT 150-400 k/uL Low Platelet Count 137 LAB MPV 9.0-12.7 fL MPV 9.5 Performed By: #### CBC, CMP #### [facility] [address] [place] [address] COMP METABOLIC PANEL Collected: 02/01/2018 Status: F Source: [place] 4:32 [facility] OTHER CAMPUS REPOSITORY TYPE CODE TESTS RESULT OUT OF REFERENCE UNITS RANGE LAB TP 6.3-8.0 g/dL Low Protein, Total 6.2 LAB ALB 3.9-4.9 g/dL Low Albumin 3.1 LAB CA 8.5-10.2 mg/dL Calcium, Total 8.8 LAB TBIL 0.2-1.3 mg/dL Bilirubin, Total 0.5 LAB ALKP 32-117 U/L Alkaline Phosphatase 68 LAB AST 13-35 U/L AST 16 LAB GLU 74-99 mg/dL Glucose High 226 Result Comment: The [place] [employer] (ADA) provides guidance for cutoff values for fasting glucose and random glucose. The ADA defines fasting as no caloric intake for at least 8 hours. Fas ting plasma glucose results between 100 to 125 mg/dL indicate increased risk for diabetes (prediabetes). Fasting plasma glucose results greater than or equal to 126 mg/dL meet the criteria for diagnosis of diabetes. In the absence of unequivocal hyperglycemia, results should be confirmed by repeat testing. In a patient with classic symptoms of hyperglycemia or hyperglycemic crisis, random plasma glucose results greater than or equal to 200 mg/dL meet the criteria for diagnosis of diabetes. Reference: Standards of Medical Care in Diabetes 2016, [place] [employer]. Diabetes Care. 2016.39(Suppl 1). LAB BUN 7-21 mg/dL BUN High 69 LAB CRET 0.58-0.96 mg/dL Creatinine High 2.30 LAB NA 136-144 mmol/L Sodium 136 LAB K 3.7-5.1 mmol/L Potassium High 5.2 LAB CL 97-105 mmol/L Low Chloride 95 LAB CO2 22-30 mmol/L CO2 28 LAB AGAP 9-18 mmol/L Anion Gap 13 LAB ALT 7-38 U/L ALT 18 LAB GFRAA eGFR- Amer. 25 LAB GFRNAA . eGFR-All Other Races 21 Result Comment: eGFR (Estimated GFR) Units of measure: mL/min/1.73 meters squared eGFR is derived from the reexpressed MDRD Study equation using the following parameters: serum creatinine, age, gender and race. The creatinine assay has been calibrated to be traceable to IDMS. An eGFR <60 mL/min/1.73m2 for >3 months is consistent with chronic kidney disease. Refer to KDOQI guidelines for clinical interpretation. In patients with unstable renal function, e.g. those with acute kidney injury, the eGFR may not accurately reflect actual GFR. Performed By: #### CBC, CMP #### [facility] [address] [place] [address] PROGRESS Observed: 01/31/2018 Status: COMPLETED Source: [place] 8:11 PM CLINIC OTHER CAMPUS REPOSITORY O ID: [id number] Author: Radha Adams) Kendal Service: Hospital Medicine Author Type: Physician Type: Progress Notes Filed: 01/31/2018 8:18 PM Note Text: HOSPITAL MEDICINE PROGRESS NOTE Name: Luz Baca SERVICE DATE: 01/31/2018 SERVICE TIME: 8:11 PM LOCATION / ROOM: [facility]-[id number] [facility] Medicine/Primary Attending: Radha Edmonds MD NIGHT COVERAGE BETWEEN 5.30P-7.30A Page [id number] ASSESSMENT AND PLAN Principal Problem: ?? Chest pain in adult ? HS trop 55, repeat 56 which is similar to readings at previous admission likely from CKD. Pt had external stress test 07/2017: no evidence of ischemia. Troponin 0.050 to 0.059 to 0.076, monitor on tele. Cards consulted. F/u recs - Chronic combined systolic and diastolic CHF (congestive heart failure) (HCC) ? Pt was just hospitalized for CHF exacerbation from 01/20/18-01/23/18. BNP 1300 improved from 2145 from last admit. But still believe her symptoms related to volume overloaded Increased lasix to 80 mg BID IV and aldactone BID Cr got worse likely from volume loss from diarrhea and high dose of diurectics Would decrease lasix to 60 mg BID, diarrhea resolved, monitor cr, f/u cards recs - Atrial fibrillation (HCC) ? On eliquis. S/p pacemaker. Monitor on tele. - Pacemaker ? Had recent device interrogation 12/2017. - CAD (coronary artery disease) ? CABGx2 (DEBORAH-LAD, SVG-PDA ) in 2004 - Uncontrolled type 2 diabetes mellitus with stage 3 chronic kidney disease, with long-term current use of insulin (HCC) ? HbA1c: 12.0. ?Endocrinology consulted. On Lantus 30 units AM and 40 units HS, Humalog 12 uints with each meals plus sliding scale. Increased HS dose of Lantus to 44 units. Fasting sugars are improving - Essential hypertension ? Stable, continue home meds. ?? - Sleep apnea ? Wears CPAP at home, continue. ? Acute renal failure: Creat worsning due to over diuresis Acute diarrhea Resolved Dc Planning SUBJECTIVE INTERVAL HPI: Feels better, no fever, chills, cp nor palpitations. No events overnight MEDICATIONS: Reviewed Current Facility-Administered Medications: [START ON 02/01/2018] furosemide (LASIX) tab(s) 60 mg 60 mg ORAL BID 9a/5p Radha Adams) Linkuestakellee [START ON 02/01/2018] insulin lispro 15 Units injection (rapid acting) (HumaLOG) 15 Units SUBCUTANEOUS w MEALS Som Jodie 15 Units at 01/31/18 175 ondansetron orally disintegrating 4 mg tab(s) (ZOFRAN ODT) 4 mg ORAL q 6 H PRN Zuhair Wick 4 mg at 01/31/18 1939 insulin glargine 44 Units injection (long acting) (LANTUS) 44 Units SUBCUTANEOUS AT BEDTIME Som Jodie 44 Units at 01/30/18 205 acetaminophen 650 mg tab(s) (TYLENOL) 650 mg ORAL q 6 H PRN Leonard Basiliober 650 mg at 01/30/18 213 insulin lispro injection (rapid acting) (HumaLOG) SUBCUTANEOUS w MEALS AND HS Gabrielotf Racehl 9 Units at 01/31/18 180 insulin glargine 30 Units injection (long acting) (LANTUS) 30 Units SUBCUTANEOUS DAILY (8 AM) Shruti Hasan 30 Units at 01/31/18 0931 spironolactone 25 mg tab(s) (ALDACTONE) 25 mg ORAL BID Jose C Yeung 25 mg at 01/30/18 180 gabapentin 600 mg cap(s) (NEURONTIN) 600 mg ORAL BID Raymond Rangel (Pa) 600 mg at 01/31/18 09 simvastatin 40 mg tab(s) (ZOCOR) 40 mg ORAL AT BEDTIME Raymond Rangel (Pa) 40 mg at 01/30/182054 ipratropium-albuterol 3 mL nebulizer solution (DUONEB) 3 mL INHALATION q 4 H PRN Raymond Rangel (Pa) 3 mL at 01/31/18 0809 apixaban 5 mg tab(s) (ELIQUIS) 5 mg ORAL BID Raymond Nayak) Claire 5 mg at 01/31/[address] 40 mg tab(s) (PROTONIX) 40 mg ORAL BID Raymond Nayak) Claire 40 mg at 01/31/18 0936 bacitracin 1 application topical ointment 1 application TOPICAL BID Raymond Nyaak) Claire 1 application at 01/31/18 0900 isosorbide mononitrate ER 60 mg tab(s) (IMDUR) 60 mg ORAL DAILY Raymond (Gorge) Claire 60 mg at 01/31/18 0936 0.9% NaCl 3-5 mL 3-5 mL INTRAVENOUS q 12 H Raymond (Groge) Claire 5 mL at 01/31/18 0900 dextrose 40 % 15 g 15 g ORAL PRN Raymond (Gorge) Claire Or glucagon 1 mg injection (GLUCAGEN) 1 mg INTRAMUSCULAR PRN Raymond (Gorge) Claire Or dextrose 50% in water 25 mL syringe 12.5 g INTRAVENOUS PRN Raymond (Gorge) Claire miconazole 2 % 1 application topical powder (LOTRIMIN AF, DESENEX) 1 application TOPICAL BID Gloria Ebonie aTlilly 1 application at 01/31/18 0900 OBJECTIVE PHYSICAL EXAM: BP 108/36 Pulse 54 Temp (Src) 98.2 (Oral) Resp 20 Ht 5' 8 (1.73m) Wt 215 lb 13.3 oz (97.9kg) SpO2 97% BMI 32.82 kg/(m2). GENERAL: Alert, no distress, cooperative, Morbidly Obese SKIN: Skin color, texture, turgor normal. No rashes or lesions. EYES: PERRLA, EOMI OROPHARYNX: Lips, mucosa, and tongue normal. Teeth and gums normal. Oropharynx normal. NECK: No jugulovenous distention, No carotid bruits, Carotid pulse normal contour, Supple LUNGS: Lungs clear to auscultation, Good diaphragmatic excursion CARDIAC: Normal S1 and S2; no rubs, murmurs, or gallops ABDOMEN: Abdomen soft, non-tender, BS normal, No masses or organomegaly EXTREMITIES: Extremities normal, no deformities, edema, clubbing or skin discoloration. Good capillary refill., No ulcers NEURO: Gait normal. Reflexes normal and symmetric. Sensation grossly intact, Cranial nerves II-XII intact PULSES: 2+ radial, 2+ carotid DATA: Diagnostic tests reviewed for today's visit: Most recent labs CBC: WBC 8.37 01/31/2018 HEMOGLOBIN 11.1 01/31/2018 HEMATOCRIT 35.3 01/31/2018 PLATELETS 142 01/31/2018 CMP: Sodium 137 01/31/2018 Potassium 4.9 01/31/2018 BUN 58 01/31/2018 Creatinine 2.19 01/31/2018 Glucose 251 01/31/2018 Chloride 95 01/31/2018 CO2 Content, Venous 31 01/31/2018 VTE Prophylaxis: Patient is already anti-coagulated. Disposition: Home with [facility] Plan of care discussed with: Patient SIGNATURE: Radha Edmonds MD DATE: January 31, 2018 TIME: 8:11 PM CONSULT Observed: 01/31/2018 Status: COMPLETED Source: [place] 6:52 PM CLINIC OTHER CAMPUS REPOSITORY O ID: [id number] Author: Som Feliciano Service: Endocrinology Author Type: Physician Type: Consults Filed: 01/31/2018 8:12 PM Note Text: INITIAL CONSULT ENDOCRINOLOGY SERVICE DATE: 01/31/2018 SERVICE TIME: 6:52 PM Requesting Provider: Radha Adams) Kendal Opinion/Advice Regarding: Management of Diabetes Mellitus Type 2 hyperglycemia Service: Endocrinology Consult Service Subjective HPI: Ms. Luz Baca is a 77 year old female with a 15 year history of Diabetes Mellitus Type 2 hyperglycemia who was admitted on 01/27/2018 for chest pain. Past medical history significant for HOCM s/p myectomy, chronic AF on eliquis, s/p pacemaker, CAD s/p multiple stents and CABG, CKD stage III, DMII, HTN, HLD, COPD (2L O2 continuous), who presents with CP that started around 5am today. Pain is intermitent and episodes last about 5 minutes, midsternal and around pacemaker without radiation, sharp and stabbing. Associated SOB worse than baseline. Denies n/v/d/f/c, diaphoresis. Pt was just hospitalized for CHF exacerbation from 01/20/18-01/23/18. Patient does not exercise. Last HbA1c was 12.0% on 01/26/2018. She has a family history of diabetes in her brother. She is followed by PCP for her diabetes. DIABETIC COMPLICATIONS: Nephropathy: Diabetic chronic kidney disease Neuropathy: Polyneuropathy Cardiology: CABG and CHF Pre-Admission DM Regimen: Preadmission oral agents: None Preadmission insulin regimen: Lantus 50 units Q am and 36 units at HS Humalog 12 units TID and Q AC pen Sliding scale: One unit for every 25 mg/dL Self Monitoring Blood Glucose: Type of Monitor: Does not know brand Frequency of Monitoring: Three times a Day BG Values: 200-400 Hypoglycemia: No PAST MEDICAL HISTORY Diagnosis Date - Arthritis - Atrial fibrillation (HCC) - CAD (coronary artery disease) stents x9, defibrillator, CABG. Seeing Dr. Cardona - Cardiac defibrillator in place - Cardiomegaly - Carotid artery disease ([facility]) left - CKD (chronic kidney disease), stage IV ([facility]) Dr. Martin - COPD (chronic obstructive pulmonary disease) ([facility]) Dr. Cruz - Depression - Diabetes ([facility]) - Diabetic neuropathy ([facility]) - GERD (gastroesophageal reflux disease) - Gout - HH (hiatus hernia) - HH (hiatus hernia) - HOCM (hypertrophic obstructive cardiomyopathy) ([facility]) - HOCM (hypertrophic obstructive cardiomyopathy) ([facility]) S/P Septal Myectomy in 2003. Echo 09/23/10 shows no visable GABRIEL. LVOT gradient is 8mmHg. - HTN (hypertension) - Hyperlipidemia - Morbid obesity with BMI of 40.0-44.9, adult ([facility]) - Pacemaker - Pneumonia h/o pneumonia/bronchitis - Renal insufficiency 2003 post op - Sleep apnea 2011 not on CPAP, unable to tolerate mask 02/2017 - SVT (supraventricular tachycardia) ([facility]) NSVT and questionable VT in 2003 post op PAST SURGICAL HISTORY Procedure Laterality Date - PAST SURGICAL HISTORY OF 07/18/2004 Septal myectomy and CABG x2 (DEBORAH-LAD, SVG-PDA). - PAST SURGICAL HISTORY OF left breast nodule removed - PAST SURGICAL HISTORY OF hysterectomy - PAST SURGICAL HISTORY OF perianal abscess drained - PAST SURGICAL HISTORY OF cholecystectomy - PAST SURGICAL HISTORY OF skin lesions removed FAMILY HISTORY Problem Relation Age of Onset - Hypertension Mother living at age 93, HTN - Heart Failure Mother [place] - Cancer Father age 71, lung cancer Social History Substance Use Topics - Smoking status: Former Smoker Packs/day: 2.50 Years: 43.00 Types: Cigarettes Start date: 1961 Quit date: 07/07/2004 - Smokeless tobacco: Never Used - Alcohol use No MEDICATIONS: Prescriptions Prior to Admission: furosemide (LASIX) 40 mg tablet Take 80 mg by mouth twice daily. Disp: Rfl: 01/27/2018 at 0800 gabapentin (NEURONTIN) 300 mg capsule Take 600 mg by mouth twice daily. Disp: Rfl: 01/27/2018 at 0800 insulin aspart U-100 (NOVOLOG FLEXPEN U-100 INSULIN) 100 unit/mL inpn Inject 12 Units subcutaneously three times daily with meals. Disp: Rfl: 01/27/2018 at Unknown time insulin glargine (LANTUS SOLOSTAR U-100 INSULIN) 100 unit/mL (3 mL) inpn Inject 50 Units subcutaneously every morning. Disp: Rfl: 01/27/2018 at 0800 insulin glargine (LANTUS SOLOSTAR U-100 INSULIN) 100 unit/mL (3 mL) inpn Inject 36 Units subcutaneously daily at bedtime. Disp: Rfl: 01/26/[address] (PROTONIX) 40 mg tablet Take 40 mg by mouth twice daily. Disp: Rfl: 01/27/2018 at 0800 potassium chloride (K-TAB) 10 mEq tablet Take 10 mEq by mouth daily with breakfast. Disp: Rfl: 01/27/2018 at 0800 bacitracin (ANTIBIOTIC, BACITRACIN ZINC,) ointment Apply 1 application to affected area twice daily. Disp: 1 Tube Rfl: 1 01/27/2018 at Unknown time nystatin (NYSTOP) powder Apply 1 application to affected area three times daily. Disp: 60 g Rfl: 2 Unknown at Unknown time isosorbide mononitrate ER (IMDUR) 60 mg 24 hr tablet Take 1 tablet by mouth once daily. Disp: 30 tablet Rfl: 5 01/27/2018 at 0800 apixaban (ELIQUIS) 5 mg tab(s) Take 5 mg by mouth twice daily. Disp: Rfl: 01/27/2018 at 0800 simvastatin (ZOCOR) 40 mg tablet Take 40 mg by mouth every morning. Disp: Rfl: 01/27/2018 at 0800 spironolactone (ALDACTONE) 25 mg tablet Take 1 tablet by mouth once daily. Disp: Rfl: 01/27/2018 at 0800 ipratropium-albuterol (DUONEB) 0.5 mg-3 mg(2.5 mg base)/3 mL nebu Inhale 3 mL as instructed every 4 hours as needed. Disp: 180 Vial Rfl: 3 Unknown at Unknown time guaiFENesin-dextromethorphan (ROBITUSSIN DM) 100-10 mg/5 mL syrup Take 5-10 mL by mouth every 6 hours as needed for Cough. Disp: 118 mL Rfl: 0 Unknown at Unknown time nitroglycerin sublingual (NITROQUICK) 0.4 mg SL tablet Dissolve 1 tablet under the tongue every 5 minutes as needed. Disp: 1 Bottle of 25 Rfl: 0 Unknown at Unknown time OXYGEN, HOME THERAPY, Inhale 2.5 L/min as instructed continuous. 3 L/min when leaves home. Disp: Rfl: Unknown at Unknown time gabapentin (NEURONTIN) 300 mg capsule Take 2 capsules by mouth three times daily for 30 days. (Patient taking differently: Take 600 mg by mouth twice daily. ) Disp: Rfl: 12/09/2017 Current hospital medications: [START ON 02/01/2018] furosemide (LASIX) tab(s) 60 mg 60 mg ORAL BID 9a/5p [START ON 02/01/2018] insulin lispro 15 Units injection (rapid acting) (HumaLOG) 15 Units SUBCUTANEOUS w MEALS insulin glargine 44 Units injection (long acting) (LANTUS) 44 Units SUBCUTANEOUS AT BEDTIME acetaminophen 650 mg tab(s) (TYLENOL) 650 mg ORAL q 6 H PRN insulin lispro injection (rapid acting) (HumaLOG) SUBCUTANEOUS w MEALS AND HS insulin glargine 30 Units injection (long acting) (LANTUS) 30 Units SUBCUTANEOUS DAILY (8 AM) spironolactone 25 mg tab(s) (ALDACTONE) 25 mg ORAL BID 9a/5p gabapentin 600 mg cap(s) (NEURONTIN) 600 mg ORAL BID simvastatin 40 mg tab(s) (ZOCOR) 40 mg ORAL AT BEDTIME ipratropium-albuterol 3 mL nebulizer solution (DUONEB) 3 mL INHALATION q 4 H PRN apixaban 5 mg tab(s) (ELIQUIS) 5 mg ORAL BID pantoprazole DR 40 mg tab(s) (PROTONIX) 40 mg ORAL BID bacitracin 1 application topical ointment 1 application TOPICAL BID isosorbide mononitrate ER 60 mg tab(s) (IMDUR) 60 mg ORAL DAILY 0.9% NaCl 3-5 mL 3-5 mL INTRAVENOUS q 12 H dextrose 40 % 15 g 15 g ORAL PRN glucagon 1 mg injection (GLUCAGEN) 1 mg INTRAMUSCULAR PRN dextrose 50% in water 25 mL syringe 12.5 g INTRAVENOUS PRN miconazole 2 % 1 application topical powder (LOTRIMIN AF, DESENEX) 1 application TOPICAL BID ALLERGIES Allergen Reactions - Aspirin Other: See Comments Patient states that she bled out every orifice, sts not allowed to take it at all. Patient states she was bleeding out of nose and mouth after one dose. - Bactrim [Sulfametho* Other: See Comments My throat swells up. - Latex Rash, Itching Itching and welts. No wheezing or shortness of breath. - Penicillins Rash, Itching Tolerated ceftriaxone during 11/2017 admission and cefepime during 12/2017 admission - Tetracycline Rash, GI Upset Emesis and diarrhea. - Atorvastatin Rash - Codeine Other: See Comments Numbness - Dilaudid [Hydromorp* Mental Status Change - Meperidine - Pentazocine - Pioglitazone Unknown - Propoxyphene COMPLETE REVIEW OF SYSTEMS: WEIGHT: fluctuation due to water weight gain and loss EYES: Normal HYDRATION: No polydypsia or thirst CARDIAC: Dyspnea much better now RESPIRATORY: Negative for cough, wheezing or shortness of breath GI: no nausea, fullness, vomiting, constipation, GI bleeding or heartburn : no dysuria, frequency, hesitancy, hematuria, polyuria or nocturia SKIN: normal MUSCULOSKELETAL: No joint pain, stiffness, swelling, cramping or weakness NERVOUS SYSTEM: numbness of the feet ALL OTHER SYSTEMS: non-contributory Last Eye Exam: 2016 Last Podiatry Exam: January 2018 Objective PHYSICAL EXAM: BP (!) 108/36 Pulse (!) 54 Temp 36.8 ?C (98.2 ?F) (Oral) Resp 20 Ht 172.7 cm (5' 8) Wt 97.9 kg (215 lb 13.3 oz) SpO2 97% BMI 32.82 kg/m2 Body mass index is 32.82 kg/(m2). Appearance: Well appearing, alert, in no acute distress, well-hydrated, well nourished., Obese Eyes: PERRLA, conjunctiva and sclera normal Neck: Supple, no adenopathy; thyroid symmetric, normal size, no bruits Heart: RRR without murmur, gallop, or rubs. No ectopy Lungs Lungs clear to auscultation. No wheezing, rhonchi, rales Abdomen bowel sounds normoactive, no bruits, soft, non-tender, non-distended Extremities: No deformities, edema, skin discoloration, clubbing or cyanosis. Good capillary refill. Neuro: Awake, alert and oriented x 3, No involuntary motions. and Reflexes symmetrical Feet: Shoes and socks removed, No deformities, ulcers, calluses, normal distal pulses and vibratory perception decreased b/l Skin: Color, texture, turgor normal. No rashes or lesions All other systems: non-contributory Laboratory Results: Hemoglobin (g/dL) Date Value 01/31/2018 11.1 Hematocrit (%) Date Value 01/31/2018 35.3 WBC (k/uL) Date Value 01/31/2018 8.37 Platelet Count (k/uL) Date Value 01/31/2018 142 Potassium (mmol/L) Date Value 01/31/2018 4.9 Sodium (mmol/L) Date Value 01/31/2018 137 Magnesium (mg/dL) Date Value 01/27/2018 2.1 Creatinine (mg/dL) Date Value 01/31/2018 2.19 BUN (mg/dL) Date Value 01/31/2018 58 Glucose (mg/dL) Date Value 01/31/2018 251 PT INR (no units) Date Value 01/27/2018 1.0 TSH (uU/mL) Date Value 2010 1.300 NT Pro BNP (pg/mL) Date Value 01/27/2018 1303 Lipids: Cholesterol, Total (mg/dL) Date Value 05/17/2017 145 HDL Cholesterol (mg/dL) Date Value 05/17/2017 34 LDL Cholesterol (mg/dL) Date Value 05/17/2017 84 Triglyceride (mg/dL) Date Value 05/17/2017 137 Albumin (g/dL) Date Value 01/31/2018 3.1 (L) Bilirubin, Total (mg/dL) Date Value 01/31/2018 0.4 Alkaline Phosphatase (U/L) Date Value 01/31/2018 75 AST (U/L) Date Value 01/31/2018 19 ALT (U/L) Date Value 01/31/2018 20 Protein, Total (g/dL) Date Value 01/31/2018 6.1 (L) LV Ejection Fraction (%) Date Value 12/21/2017 50 Hemoglobin A1C (%) Date Value 01/26/2018 12.0 01/20/2018 12.3 10/27/2017 16.1 05/17/2017 10.0 2010 8.4 Hemoglobin A1c (%) Date Value 10/27/2017 >15 Impression/Recommendations Patient with uncontrolled Diabetes Mellitus Type 2 hyperglycemia whom we have been consulted for glycemic control. RECOMMENDATIONS: ? Change Basal Insulin: Lantus 48 units QHS and 34 units QAM ? Change Prandial Insulin: Humalog 15 units AC TID ? Continue Supplemental Sliding Scale: Humalog Program #2 AC #1 HS ? Accuchecks: AC/HS ? Recommend CHO Controlled Diet ? Consult CDE regarding: DM Education including diet and monitoring blood sugar SIGNATURE: Som Feliciano MD PATIENT NAME: Luz Baca DATE: January 31, 2018 TIME: 6:52 PM PAGER/CONTACT #: [phone] CASE MANAGEM Observed: 01/31/2018 Status: COMPLETED Source: [place] 12:20 PM CLINIC OTHER CAMPUS REPOSITORY O ID: [id number] Author: Vanessa Loomis (Rn) ALLYSON Gonzalez Service: Case Management Author Type: Registered Nurse Type: Care Mgt Progress Note Filed: 01/31/2018 12:23 PM Note Text: CARE MANAGEMENT PROGRESS NOTE SERVICE DATE: 01/31/2018 SERVICE TIME: 12:21 PM LOS: 3 days EMR reviewed. Admit Dx Chest Pain. On Chronic 2L n/c. From home with dtr. On Chronic 2.5 LO2 at home. Active with [facility]. PCP Dr. Kamara, any day/time OK for f/u appt. Dtr will transport. SIGNATURE: Vanessa Gonzalez RN PATIENT NAME: Luz Baca DATE: January 31, 2018 TIME: 12:20 PM PAGER/CONTACT #: [phone] NURSING PROG Observed: 01/31/2018 Status: COMPLETED Source: [place] 8:00 AM [facility] OTHER CAMPUS REPOSITORY HNO ID: [id number] Author: Reanna (Rn) ALLYSON Davalos Service: Nursing Author Type: Registered Nurse Type: Nursing Progress Note Filed: 01/31/2018 7:26 PM Note Text: Nursing Progress Note Patient Name: Luz Baca Patient Location[id number] Daily Note: Pt AANDO x 3, cooperative. C-dif precautions posted. Pt had sm formed stool early this a.m., only 2 stools on admission. Physician called and pt taken off precautions. Pt up to bathroom and bath given by Latia, Student Nurse. Lungs with crackles in left base, resp even and nonlabored on room air. Abd soft, nontender, BS + x 4. #22 rt wrist capped. Tele V-paced HR 77. Goodson cath draining yellow urine. Accu check completed and Dr Feliciano called. Insulin given. Physician called re. Diuretics and BUN/Cr levels. Order rec'd to hold medication. IV Lasix changed to po and will continue restart tomorrow. Order rec'd to discontinued goodson catheter. 1100 Pt sleeping in bed. 1930 Pt states she feel nauseated. Blood glucose checked and text sent to hospitalist for zofran. Pt AANDO x 3, aiden-gurwinder and blue bag given along with soda crackers. This note was completed by: Reanna Davalos RN CBC Collected: 01/31/2018 Status: F Source: [place] 4:36 AM [facility] OTHER CAMPUS REPOSITORY TYPE CODE TESTS RESULT OUT OF REFERENCE UNITS RANGE LAB WBC 3.70-11.00 k/uL WBC 8.37 LAB RBC 3.90-5.20 m/uL Low RBC 3.61 LAB HGB 11.5-15.5 g/dL Low Hemoglobin 11.1 LAB HCT 36.0-46.0 % Low Hematocrit 35.3 LAB MCV 80.0-100.0 fL MCV 97.8 LAB MCH 26.0-34.0 pG MCH 30.7 LAB MCHC 30.5-36.0 g/dL MCHC 31.4 LAB RDWCV 11.5-15.0 % RDW-CV High 15.2 LAB PLTCT 150-400 k/uL Low Platelet Count 142 LAB MPV 9.0-12.7 fL MPV 9.5 Performed By: #### CBC, CMP #### [facility] [address] [facility] [phone] COMP METABOLIC PANEL Collected: 01/31/2018 Status: F Source: [place] 4:36 AM [facility] OTHER CAMPUS REPOSITORY TYPE CODE TESTS RESULT OUT OF REFERENCE UNITS RANGE LAB TP 6.3-8.0 g/dL Low Protein, Total 6.1 LAB ALB 3.9-4.9 g/dL Low Albumin 3.1 LAB CA 8.5-10.2 mg/dL Calcium, Total 8.6 LAB TBIL 0.2-1.3 mg/dL Bilirubin, Total 0.4 LAB ALKP 32-117 U/L Alkaline Phosphatase 75 LAB AST 13-35 U/L AST 19 LAB GLU 74-99 mg/dL Glucose High 251 Result Comment: The [place] Diabetes Association (ADA) provides guidance for cutoff values for fasting glucose and random glucose. The ADA defines fasting as no caloric intake for at least 8 hours. Fas ting plasma glucose results between 100 to 125 mg/dL indicate increased risk for diabetes (prediabetes). Fasting plasma glucose results greater than or equal to 126 mg/dL meet the criteria for diagnosis of diabetes. In the absence of unequivocal hyperglycemia, results should be confirmed by repeat testing. In a patient with classic symptoms of hyperglycemia or hyperglycemic crisis, random plasma glucose results greater than or equal to 200 mg/dL meet the criteria for diagnosis of diabetes. Reference: Standards of Medical Care in Diabetes 2016, [place] [employer] Association. Diabetes Care. 2016.39(Suppl 1). LAB BUN 7-21 mg/dL BUN High 58 LAB CRET 0.58-0.96 mg/dL Creatinine High 2.19 LAB NA 136-144 mmol/L Sodium 137 LAB K 3.7-5.1 mmol/L Potassium 4.9 LAB CL 97-105 mmol/L Low Chloride 95 LAB CO2 22-30 mmol/L CO2 High 31 LAB AGAP 9-18 mmol/L Anion Gap 11 LAB ALT 7-38 U/L ALT 20 LAB GFRAA eGFR- Amer. 26 LAB GFRNAA . eGFR-All Other Races 22 Result Comment: eGFR (Estimated GFR) Units of measure: mL/min/1.73 meters squared eGFR is derived from the reexpressed MDRD Study equation using the following parameters: serum creatinine, age, gender and race. The creatinine assay has been calibrated to be traceable to IDMS. An eGFR <60 mL/min/1.73m2 for >3 months is consistent with chronic kidney disease. Refer to KDOQI guidelines for clinical interpretation. In patients with unstable renal function, e.g. those with acute kidney injury, the eGFR may not accurately reflect actual GFR. Performed By: #### CBC, CMP #### [facility] [address] [place] [phone] NURSING PROG Observed: 01/30/2018 Status: COMPLETED Source: [place] 8:40 PM [facility] OTHER [place] REPOSITORY HNO ID: [id number] Author: Sohail (Rn) ALLYSON Hernandez Service: (none) Author Type: Registered Nurse Type: Nursing Progress Note Filed: 01/31/2018 6:26 AM Note Text: Nursing Progress Note Patient Name: Luz Baca Patient Location: [id number] Daily Note:01/30/[address] Feliciano regarding pt blood sugar, orders to give scheduled Lantus and Humalog. [address] Feliciano regarding pt blood sugars, no new orders. This note was completed by: Sohail Hernandez RN CONSULT PROG Observed: 01/30/2018 Status: COMPLETED Source: [place] 12:20 PM [facility] OTHER CAMPUS REPOSITORY HNO ID: [id number] Author: Clay Garcia Service: Clinical Cardiology Author Type: Physician Type: Consult Progress Note Filed: 01/30/2018 12:24 PM Note Text: 01/30/2018 CONSULT PROGRESS NOTE SERVICE TIME: 909 ASSESSMENT AND PLAN 1. ASHD - CABGx3 2003, PCIx6 RCA 2013, PCIx3 2014 2. HCM - septal myectomy 2003 3. CHF - acute on chronic diastolic, DAMION-I/ARB intolerance (CRF) 4. Cardiomyopathy - ischemic, ICD 2014, revised 11/2016, beta lenny intolerance 5. HTN 6. DM 7. HLN 8. MARLA - unable to tolerate CPAP 9. PAF- anticoagulated with apixaban 10. CKD She is able to lay flat without SOB and suspect her CHF is minimal now especially with diarhea even though she did not have a great diuresis. Can start to change to PO diuretics Will see as needed and pleas call if any questions. She will follow with Dr. Michael Cardona in [place] for Cardiology SIGNATURE: Clay Garcia, DO, FACC, FCCP, FACOI. PATIENT NAME: Luz Baca DATE: January 30, 2018 TIME: 1010 PAGER: [phone] CONSULT PROGRESS NOTE: CARDIOLOGY SERVICE PCP: Jameson Kamara MD ATTENDING: Peyman Guerrero REASON FOR CONSULT: Shortness of Breath Subjective HISTORY OF PRESENT ILLNESS: This is a 77 year old female with PMHx of HOCM s/p myectomy, chronic AF on eliquis, s/p pacemaker, CAD s/p multiple stents and CABG, CKD stage III, DMII, HTN, HLD, COPD (2L O2 continuous), who presents with CP that started around 5am today. Pain is intermitent and episodes last about 5 minutes, midsternal and around pacemaker without radiation, sharp and stabbing. Associated SOB worse than baseline. Denies n/v/d/f/c, diaphoresis. ? Pt was just hospitalized for CHF exacerbation from 01/20/18-01/23/18. ? HStrop 55, repeat 56 which is similar to readings at previous admission likely from CKD. BNP 1300 improved from 2145 from last admit. CKD: BUN 49, Cr 1.56 which is baseline. EKG paced rhythm. ? Pt had external stress test 07/2017: no evidence of ischemia. Pt had device interrogation last month. PAST MEDICAL HISTORY Diagnosis Date - Arthritis - Atrial fibrillation ([facility]) - CAD (coronary artery disease) stents x9, defibrillator, CABG. Seeing Dr. Cardona - Cardiac defibrillator in place - Cardiomegaly - Carotid artery disease ([facility]) left - CKD (chronic kidney disease), stage IV ([facility]) Dr. Martin - COPD (chronic obstructive pulmonary disease) ([facility]) Dr. Cruz - Depression - Diabetes ([facility]) - Diabetic neuropathy ([facility]) - GERD (gastroesophageal reflux disease) - Gout - HH (hiatus hernia) - HH (hiatus hernia) - HOCM (hypertrophic obstructive cardiomyopathy) ([facility]) - HOCM (hypertrophic obstructive cardiomyopathy) ([facility]) S/P Septal Myectomy in 2003. Echo 09/23/10 shows no visable GABRIEL. LVOT gradient is 8mmHg. - HTN (hypertension) - Hyperlipidemia - Morbid obesity with BMI of 40.0-44.9, adult ([facility]) - Pacemaker - Pneumonia h/o pneumonia/bronchitis - Renal insufficiency 2003 post op - Sleep apnea 2011 not on CPAP, unable to tolerate mask 02/2017 - SVT (supraventricular tachycardia) ([facility]) NSVT and questionable VT in 2003 post op PAST SURGICAL HISTORY Procedure Laterality Date - PAST SURGICAL HISTORY OF 07/18/2004 Septal myectomy and CABG x2 (DEBORAH-LAD, SVG-PDA). - PAST SURGICAL HISTORY OF left breast nodule removed - PAST SURGICAL HISTORY OF hysterectomy - PAST SURGICAL HISTORY OF perianal abscess drained - PAST SURGICAL HISTORY OF cholecystectomy - PAST SURGICAL HISTORY OF skin lesions removed FAMILY HISTORY Problem Relation Age of Onset - Hypertension Mother living at age 93, HTN - Heart Failure Mother [place] - Cancer Father age 71, lung cancer Social History Substance Use Topics - Smoking status: Former Smoker Packs/day: 2.50 Years: 43.00 Types: Cigarettes Start date: 1961 Quit date: 07/07/2004 - Smokeless tobacco: Never Used - Alcohol use No Prior to Admission Medications Prescriptions Last Dose Informant Patient Reported? Taking? OXYGEN, HOME THERAPY, Unknown at Unknown time Yes Yes Sig: Inhale 2.5 L/min as instructed continuous. 3 L/min when leaves home. albuterol (PROVENTIL) 5 mg/mL nebu No No Sig: Inhale 0.5 mL as instructed one time only for 1 dose. 1 DOSE NOW - BACK OFFICE. PLACE 0.5 ML PER DROPPER AND 2.5 ML OF NORMAL SALINE INTO RESERVOIR. Patient not taking: Reported on 01/26/2018 apixaban (ELIQUIS) 5 mg tab(s) 01/27/2018 at 0800 Yes Yes Sig: Take 5 mg by mouth twice daily. bacitracin (ANTIBIOTIC, BACITRACIN ZINC,) ointment 01/27/2018 at Unknown time No Yes Sig: Apply 1 application to affected area twice daily. furosemide (LASIX) 40 mg tablet 01/27/2018 at 0800 Yes Yes Sig: Take 80 mg by mouth twice daily. gabapentin (NEURONTIN) 300 mg capsule No No Sig: Take 2 capsules by mouth three times daily for 30 days. Patient taking differently: Take 600 mg by mouth twice daily. gabapentin (NEURONTIN) 300 mg capsule 01/27/2018 at 0800 Yes Yes Sig: Take 600 mg by mouth twice daily. guaiFENesin-dextromethorphan (ROBITUSSIN DM) 100-10 mg/5 mL syrup Unknown at Unknown time No Yes Sig: Take 5-10 mL by mouth every 6 hours as needed for Cough. insulin aspart U-100 (NOVOLOG FLEXPEN U-100 INSULIN) 100 unit/mL in 01/27/2018 at Unknown time Yes Yes Sig: Inject 12 Units subcutaneously three times daily with meals. insulin glargine (LANTUS SOLOSTAR U-100 INSULIN) 100 unit/mL (3 mL) in 01/27/2018 at 0800 Yes Yes Sig: Inject 50 Units subcutaneously every morning. insulin glargine (LANTUS SOLOSTAR U-100 INSULIN) 100 unit/mL (3 mL) inpn 01/26/2018 at 2200 Yes Yes Sig: Inject 36 Units subcutaneously daily at bedtime. ipratropium-albuterol (DUONEB) 0.5 mg-3 mg(2.5 mg base)/3 mL nebu Unknown at Unknown time No Yes Sig: Inhale 3 mL as instructed every 4 hours as needed. isosorbide mononitrate ER (IMDUR) 60 mg 24 hr tablet 01/27/2018 at 0800 No Yes Sig: Take 1 tablet by mouth once daily. nitroglycerin sublingual (NITROQUICK) 0.4 mg SL tablet Unknown at Unknown time No Yes Sig: Dissolve 1 tablet under the tongue every 5 minutes as needed. nystatin (NYSTOP) powder Unknown at Unknown time No Yes Sig: Apply 1 application to affected area three times daily. pantoprazole DR (PROTONIX) 40 mg tablet 01/27/2018 at 0800 Yes Yes Sig: Take 40 mg by mouth twice daily. potassium chloride (K-TAB) 10 mEq tablet 01/27/2018 at 0800 Yes Yes Sig: Take 10 mEq by mouth daily with breakfast. simvastatin (ZOCOR) 40 mg tablet 01/27/2018 at 0800 Yes Yes Sig: Take 40 mg by mouth every morning. spironolactone (ALDACTONE) 25 mg tablet 01/27/2018 at 0800 No Yes Sig: Take 1 tablet by mouth once daily. Facility-Administered Medications: None Current hospital medications: insulin glargine 44 Units injection (long acting) (LANTUS) 44 Units SUBCUTANEOUS AT BEDTIME acetaminophen 650 mg tab(s) (TYLENOL) 650 mg ORAL q 6 H PRN insulin lispro injection (rapid acting) (HumaLOG) SUBCUTANEOUS w MEALS AND HS insulin glargine 30 Units injection (long acting) (LANTUS) 30 Units SUBCUTANEOUS DAILY (8 AM) spironolactone 25 mg tab(s) (ALDACTONE) 25 mg ORAL BID 9a/5p furosemide 80 mg injection (LASIX) 80 mg INTRAVENOUS BID 9a/5p gabapentin 600 mg cap(s) (NEURONTIN) 600 mg ORAL BID simvastatin 40 mg tab(s) (ZOCOR) 40 mg ORAL AT BEDTIME ipratropium-albuterol 3 mL nebulizer solution (DUONEB) 3 mL INHALATION q 4 H PRN apixaban 5 mg tab(s) (ELIQUIS) 5 mg ORAL BID pantoprazole DR 40 mg tab(s) (PROTONIX) 40 mg ORAL BID bacitracin 1 application topical ointment 1 application TOPICAL BID isosorbide mononitrate ER 60 mg tab(s) (IMDUR) 60 mg ORAL DAILY 0.9% NaCl 3-5 mL 3-5 mL INTRAVENOUS q 12 H dextrose 40 % 15 g 15 g ORAL PRN glucagon 1 mg injection (GLUCAGEN) 1 mg INTRAMUSCULAR PRN dextrose 50% in water 25 mL syringe 12.5 g INTRAVENOUS PRN insulin lispro 12 Units injection (rapid acting) (HumaLOG) 12 Units SUBCUTANEOUS w MEALS miconazole 2 % 1 application topical powder (LOTRIMIN AF, DESENEX) 1 application TOPICAL BID ALLERGIES Allergen Reactions - Aspirin Other: See Comments Patient states that she bled out every orifice, sts not allowed to take it at all. Patient states she was bleeding out of nose and mouth after one dose. - Bactrim [Sulfametho* Other: See Comments My throat swells up. - Latex Rash, Itching Itching and welts. No wheezing or shortness of breath. - Penicillins Rash, Itching Tolerated ceftriaxone during 11/2017 admission and cefepime during 12/2017 admission - Tetracycline Rash, GI Upset Emesis and diarrhea. - Atorvastatin Rash - Codeine Other: See Comments Numbness - Dilaudid [Hydromorp* Mental Status Change - Meperidine - Pentazocine - Pioglitazone Unknown - Propoxyphene CARDIAC STATUS: Chest Pain: Denies Dyspnea: Dyspnea at rest Ankle Edema: Pitting, +2 bilateral to ankles Arrhythmia: Negative, Patient denies palpitations, lightheadedness, dizziness, syncope or near syncope. Functional Capacity: Average Activity includes Sedentary REVIEW OF SYSTEMS: The following systems were reviewed with the patient, and are unremarkable other than as described below. SYSTEMIC: No fever, chills, or change in weight or appetite HEENT: No recent change in vision or hearing. CARDIOVASCULAR: No murmur, gallop. Denies chest pain or palpitations. GI: No recent nausea, vomiting or diarrhea. : No recent hematuria or dysuria. SKIN: No recent itching or eruption. PSYCH: No recent active anxiety or depression. HEMATOLOGY/ONCOLOGY: No recent diagnosis of bleeding or cancer. ENDOCRINE: No recent polyuria or heat intolerance. NEURO: No recent TIA, stroke or seizures. RHEUMATOLOGY: No recent active connective tissue disease. Objective PHYSICAL EXAM: Pleasant, comfortable, not in acute distress. Awake, alert, oriented times 3. Moves all extremities. SKIN: No rash or lumps. HEENT: Normocephalic, face symmetrical. NECK: JVD, 15 cm in height, No carotid bruits, Carotid pulse normal contour, Supple LUNGS: decreased breath sounds bilaterally CARDIAC: PMI present, RRR, S1 and S2, no S3 or S4, no additional heart sounds or murmurs. ABDOMEN: Soft, nontender, bowel sounds present. EXTREMITIES: No edema. PULSES: Peripheral pulses present. Body mass index is 32.68 kg/(m2). O2 Therapy: Nasal Cannula No Data Recorded Patient Vitals for the past 48 hrs: BP Temp Temp src Pulse Resp SpO2 Height Weight 01/28/18 2347 126/58 36.4 ?C (97.5 ?F) Oral 64 16 95 % - - 01/28/18 1936 127/64 36.7 ?C (98.1 ?F) Oral 64 16 97 % - - 01/28/18 1603 107/91 36.5 ?C (97.7 ?F) Oral 64 20 98 % - - 01/28/18 1107 123/57 36.5 ?C (97.7 ?F) Oral 63 18 97 % - - 01/28/18 0837 - - - 66 20 - - - 01/28/18 0828 - - - 65 20 99 % - - 01/28/18 0724 135/67 36.4 ?C (97.5 ?F) Oral 64 18 95 % - - 01/28/18 0600 - - - - - - - 103 kg (227 lb) 01/28/18 0305 (!) 112/49 36.4 ?C (97.5 ?F) Oral 60 18 98 % - - 01/28/18 0135 (!) 115/44 36.3 ?C (97.3 ?F) Oral 63 18 96 % - - 01/27/18 2302 143/61 - - 64 - - - - 01/27/18 2221 - - - 62 20 - - - 01/27/18 2210 - - - 60 20 100 % - - 01/27/182014 128/72 36.9 ?C (98.4 ?F) Oral 64 20 98 % - - 01/27/18 1908 139/65 - - 80 - 97 % - - 01/27/18 1729 140/66 36.6 ?C (97.8 ?F) Oral 64 20 95 % - - 01/27/18 1620 138/62 - - 60 16 98 % - - 01/27/18 1440 123/53 36.9 ?C (98.4 ?F) Oral 62 19 (!) 93 % 172.7 cm (5' 8) 105.2 kg (232 lb) DATA: Diagnostic tests reviewed for today's visit: Most recent labs Most recent imaging Most recent EKG Past 72 Hour Labs: Recent Labs 01/28/18 0455 01/27/18 1515 CK -- -- 49 TROPT 0.076* < > -- WBC 5.97 -- 7.63 RBC 3.91 -- 3.93 HB 12.1 -- 12.1 HCT 38.1 -- 38.6 MCV 97.4 -- 98.2 MCH 30.9 -- 30.8 MCHC 31.8 -- 31.3 RDWCV 15.1* -- 15.3* PLT 150 -- 165 MPV 9.8 -- 9.7 NEUTP -- -- 70.0 LYMPHP -- -- 19.0 MONOP -- -- 9.4 EODINP -- -- 1.2 BASOP -- -- 0.4 ABSNEUT -- -- 5.34 ABSMONO -- -- 0.72 ABSEOSIN -- -- 0.09 ABSBASO -- -- 0.03 GLUC 208* < > 423* BUN 49* < > 49* CREAT 1.64* < > 1.56* NA 141 < > 138 K 4.6 < > 4.7 CHLOR 96* < > 96* CO2 34* < > 32* TPROT 6.3 -- 6.6 ALB 3.4* -- 3.3* CA 9.0 < > 8.6 ALKPHOS 96 -- 105 TBILI 0.5 -- 0.4 AST 22 -- 19 ALT 25 -- 26 PTSEC -- -- 10.1 APTT -- -- 25.0 INR -- -- 1.0 MG -- -- 2.1 < > = values in this interval not displayed. Last Lab Drawn: TSH 1.300 2010 Triglyceride 137 05/17/2017 HDL Cholesterol 34 05/17/2017 LDL Cholesterol 84 05/17/2017 Cholesterol, Total 145 05/17/2017 SIGNATURE:Caly Garcia, DO, FACC, FCCP, FACOI. PATIENT NAME: Luz Baca DATE: January 30, 2018 TIME: 0910 PAGER/CONTACT #: [phone] Observed: 01/30/2018 Status: COMPLETED Source: [place] 12:10 PM [facility] OTHER CAMPUS REPOSITORY HNO ID: [id number] Author: Peyman Guerrero Service: Hospital Medicine Author Type: Physician Type: Progress Notes Filed: 01/30/2018 12:19 PM Note Text: DEPARTMENT OF HOSPITAL MEDICINE PROGRESS NOTE SERVICE DATE: 01/30/2018 SERVICE TIME: 12:10 PM Hospital Medicine/Primary Attending: Peyman Guerrero MD NIGHT AND WEEKEND COVERAGE: Nights: Please contact pager [phone]. Subjective Subjective Patient is still c/o intermittent sharp chest pains, very short period SOB is improving Resolved diarrhea along with abdominal cramping Stable vitals Cr got worse from 1.66 to 1.99, likely from overdiuresis MEDICATIONS: Reviewed Objective Physical Exam Performed Objective: Vital signs: (most recent): Blood pressure 122/52, pulse 61, temperature 36.7 ?C (98.1 ?F), temperature source Oral, resp. rate 19, height 172.7 cm (5' 8), weight 97.5 kg (214 lb 15.2 oz), SpO2 94 %. Lines, Drains, and Airways Line Peripheral 01/29/18 1741 Short Right Wrist 22 Gauge less than 1 day Drain Indwelling Urinary Catheter 01/28/18 1130 Assessment Goodson 16 Fr 2 days Reviewed lines, drains, airways. Will discuss with nurse and discontinue at discharge 01/30/18 0353 01/30/18 0600 01/30/18 0741 01/30/18 1115 BP: 99/56 122/52 122/52 Pulse: 60 64 61 Resp: 18 18 19 Temp: 36.7 ?C (98.1 ?F) TempSrc: Oral Oral Oral SpO2: 97% 96% 94% Weight: 97.5 kg (214 lb 15.2 oz) Height: PHYSICAL EXAMINATION General: Alert and oriented, no distress, pleasant and cooperative. Heart: Regular, normal S1 and S2, no murmurs, rubs, or gallops Lungs: Clear to auscultation bilaterally Abdomen: Benign Extremities: Feet/ankles without edema, posterior tibial pulses full and symmetrical DATA: Diagnostic tests reviewed for today's visit: Most recent labs and imaging results. CBC, Coags, BMP, Mg, Phos Recent Labs 01/30/18 0431 01/29/18 0415 01/28/18 0455 01/27/18 1515 WBC 8.64 7.29 5.97 -- 7.63 HB 11.8 11.3* 12.1 -- 12.1 HCT 37.3 33.7* 38.1 -- 38.6 PLT 153 142* 150 -- 165 INR -- -- -- -- 1.0 APTT -- -- -- -- 25.0 NA 136 138 141 < > 138 K 4.3 5.3* 4.6 < > 4.7 CHLOR 96* 97 96* < > 96* CO2 30 32* 34* < > 32* BUN 52* 50* 49* < > 49* CREAT 1.99* 1.66* 1.64* < > 1.56* GLUC 151* 210* 208* < > 423* CA 9.1 8.7 9.0 < > 8.6 MG -- -- -- -- 2.1 < > = values in this interval not displayed. Assessment/Plan Principal Problem: Chest pain in adult ? ? HS trop 55, repeat 56 which is similar to readings at previous admission likely from CKD. Pt had external stress test 07/2017: no evidence of ischemia. Troponin 0.050 to 0.059 to 0.076, monitor on tele. Cards consulted. F/u recs - Chronic combined systolic and diastolic CHF (congestive heart failure) (HCC) ? ? Pt was just hospitalized for CHF exacerbation from 01/20/18-01/23/18. BNP 1300 improved from 2145 from last admit. But still believe her symptoms related to volume overloaded Increased lasix to 80 mg BID IV and aldactone BID Cr got worse likely from volume loss from diarrhea and high dose of diurectics Would decrease lasix to 60 mg BID, diarrhea resolved, monitor cr, f/u cards recs - Atrial fibrillation (HCC) ? ? On eliquis. S/p pacemaker. Monitor on tele. - Pacemaker ? ? Had recent device interrogation 12/2017. - CAD (coronary artery disease) ? ? CABGx2 (DEBORAH-LAD, SVG-PDA ) in 2004 - Uncontrolled type 2 diabetes mellitus with stage 3 chronic kidney disease, with long-term current use of insulin (HCC) ? ? HbA1c: 12.0. Endocrinology consulted. On Lantus 30 units AM and 40 units HS, Humalog 12 uints with each meals plus sliding scale. Increased HS dose of Lantus to 44 units. Fasting sugars are improving - Essential hypertension ? ? Stable, continue home meds. ? - Sleep apnea ? ? Wears CPAP at home, continue. Acute diarrhea- resolved, pending C diff. Contact isolation for now. VTE Prophylaxis: Patient is already anti-coagulated. Disposition: Home Plan of care discussed with: Patient and RN SIGNATURE: Peyman Guerrero MD PATIENT NAME: Luz Baca DATE: January 30, 2018 TIME: 12:19 PM PAGER/CONTACT #: [phone] NURSING PROG Observed: 01/30/2018 Status: COMPLETED Source: [place] 7:36 AM CLINIC OTHER CAMPUS REPOSITORY HNO ID: [id number] Author: Charlotte (Rn) ALLYSON Leary Service: (none) Author Type: Registered Nurse Type: Nursing Progress Note Filed: 01/30/2018 6:33 PM Note Text: Nursing Progress Note Patient Name: Luz Baca Patient Location: [place] [id number] Daily Note:0736: Pt reporting pain 5/10 to the chest. It is not mid-sternal pain, and she describes it as a dull pain to the areas where the shift production supervisor hospitalist pushed on overnight. She was prescribed a 1x dose of oxycodone 10mg PO at approximately 2310 last PM for the same type of pain, and the shift production supervisor RN has explained that the patient never grew SOB or showed SANDS of dyspnea at that time. Current finding correlate with that being the patient is comfortably able to speak, rating/describing her pain with efficacy and ease. Hospitalist has been paged to address findings since the oxycodone was a 1x dose last PM. This note was completed by: CHARLOTTE LEARY RN CBC Collected: 01/30/2018 Status: F Source: [place] 4:31 AM CLINIC OTHER CAMPUS REPOSITORY TYPE CODE TESTS RESULT OUT OF REFERENCE UNITS RANGE LAB WBC 3.70-11.00 k/uL WBC 8.64 LAB RBC 3.90-5.20 m/uL Low RBC 3.83 LAB HGB 11.5-15.5 g/dL Hemoglobin 11.8 LAB HCT 36.0-46.0 % Hematocrit 37.3 LAB MCV 80.0-100.0 fL MCV 97.4 LAB MCH 26.0-34.0 pG MCH 30.8 LAB MCHC 30.5-36.0 g/dL MCHC 31.6 LAB RDWCV 11.5-15.0 % RDW-CV High 15.3 LAB PLTCT 150-400 k/uL Platelet Count 153 LAB MPV 9.0-12.7 fL MPV 9.7 Performed By: #### CBC, CMP #### [facility] [address] [facility] [phone] COMP METABOLIC PANEL Collected: 01/30/2018 Status: F Source: [place] 4:31 AM CLINIC OTHER CAMPUS REPOSITORY TYPE CODE TESTS RESULT OUT OF REFERENCE UNITS RANGE LAB TP 6.3-8.0 g/dL Protein, Total 6.4 LAB ALB 3.9-4.9 g/dL Low Albumin 3.2 LAB CA 8.5-10.2 mg/dL Calcium, Total 9.1 LAB TBIL 0.2-1.3 mg/dL Bilirubin, Total 0.5 LAB ALKP 32-117 U/L Alkaline Phosphatase 76 LAB AST 13-35 U/L AST 18 LAB GLU 74-99 mg/dL Glucose High 151 Result Comment: The [place] [employer] (ADA) provides guidance for cutoff values for fasting glucose and random glucose. The ADA defines fasting as no caloric intake for at least 8 hours. Fas ting plasma glucose results between 100 to 125 mg/dL indicate increased risk for diabetes (prediabetes). Fasting plasma glucose results greater than or equal to 126 mg/dL meet the criteria for diagnosis of diabetes. In the absence of unequivocal hyperglycemia, results should be confirmed by repeat testing. In a patient with classic symptoms of hyperglycemia or hyperglycemic crisis, random plasma glucose results greater than or equal to 200 mg/dL meet the criteria for diagnosis of diabetes. Reference: Standards of Medical Care in Diabetes 2016, [place] [employer]. Diabetes Care. 2016.39(Suppl 1). LAB BUN 7-21 mg/dL BUN High 52 LAB CRET 0.58-0.96 mg/dL Creatinine High 1.99 LAB NA 136-144 mmol/L Sodium 136 LAB K 3.7-5.1 mmol/L Potassium 4.3 LAB CL 97-105 mmol/L Low Chloride 96 LAB CO2 22-30 mmol/L CO2 30 LAB AGAP 9-18 mmol/L Anion Gap 10 LAB ALT 7-38 U/L ALT 21 LAB GFRAA eGFR- Amer. 29 LAB GFRNAA . eGFR-All Other Races 24 Result Comment: eGFR (Estimated GFR) Units of measure: mL/min/1.73 meters squared eGFR is derived from the reexpressed MDRD Study equation using the following parameters: serum creatinine, age, gender and race. The creatinine assay has been calibrated to be traceable to IDMS. An eGFR <60 mL/min/1.73m2 for >3 months is consistent with chronic kidney disease. Refer to KDOQI guidelines for clinical interpretation. In patients with unstable renal function, e.g. those with acute kidney injury, the eGFR may not accurately reflect actual GFR. Performed By: #### CBC, CMP #### [facility] [address] [place] [phone] NURSING PROG Observed: 01/29/2018 Status: COMPLETED Source: [place] 8:25 PM CLINIC OTHER CAMPUS REPOSITORY HNO ID: [id number] Author: Sohail (Rn) ALLYSON Hernandez Service: (none) Author Type: Registered Nurse Type: Nursing Progress Note Filed: 01/30/2018 3:38 AM Note Text: Nursing Progress Note Patient Name: Luz Baca Patient Location: [place] [id number] Daily Note:01/29/182025 Spoke with Dr. Feliciano regarding blood sugar of 283, orders received to give scheduled Lantus and Humalog, recheck blood sugar around 2300. [address] Ortiz regarding pt having sharp, midsternal chest pain. Orders received, see eMAR, [address] Ortiz regarding EKG results 2254 Pt reporting little relief of pain with Tyleol. Paged hospitalist [phone] Dr. Ortiz at bedside, verbals orders received This note was completed by: Sohail Hernandez RN PLAN OF CARE Observed: 01/29/2018 Status: COMPLETED Source: [place] 4:59 PM [facility] REPOSITORY HNO ID: [id number] Author: Som Feliciano Service: Endocrinology Author Type: Physician Type: Plan of Care Filed: 01/29/2018 5:04 PM Note Text: Component Latest Ref Rng AND Units 01/28/2018 01/28/2018 01/28/2018 01/28/2018 01/29/2018 01/29/2018 01/29/2018 7:29 AM 11:44 AM 5:43 PM 8:03 PM 7:44 AM 11:58 AM 4:16 PM Glucose, Point of Care 74 - 99 mg/dL 187 (A) 360 (A) 220 (A) 159 (A) 206 (A) 192 (A) 160 (A) Uncontrolled DM-2 with complications on Insulin: On Lantus 30 units AM and 40 units HS, Humalog 12 uints with each meals plus sliding scale. AM reading is still above 200. Plan: go up on HS dose of Lantus to 44 units. Monitor blood sugar. Call endo ux information architect if blood sugar <80 or >210. Som Feliciano MD January 29, 2018 PROGRESS Observed: 01/29/2018 Status: COMPLETED Source: [place] 1:06 PM [facility] REPOSITORY HNO ID: [id number] Author: Peyman Guerrero Service: Hospital Medicine Author Type: Physician Type: Progress Notes Filed: 01/29/2018 1:11 PM Note Text: DEPARTMENT OF HOSPITAL MEDICINE PROGRESS NOTE SERVICE DATE: 01/29/2018 SERVICE TIME: 1:07 PM Hospital Medicine/Primary Attending: Peyman Guerrero MD NIGHT AND WEEKEND COVERAGE: Nights: Please contact pager [phone]. Subjective Subjective Chest pain has improved, less short of breath Report watery diarrhea since this morning, 5 times along with abdominal cramping Stable vitals MEDICATIONS: Reviewed Objective Physical Exam Performed Objective: Vital signs: (most recent): Blood pressure (!) 128/46, pulse 67, temperature 36.4 ?C (97.5 ?F), temperature source Oral, resp. rate 16, height 172.7 cm (5' 8), weight 97.6 kg (215 lb 3.2 oz), SpO2 99 %. Lines, Drains, and Airways Line Peripheral 01/27/18 1516 Left Antecubital 20 Gauge 1 day Drain Indwelling Urinary Catheter 01/28/18 1130 Assessment Goodson 16 Fr 1 day Reviewed lines, drains, airways. Will discuss with nurse and discontinue at discharge 01/29/18 0408 01/29/18 0600 01/29/18 0742 01/29/18 1117 BP: (!) 122/49 119/65 (!) 128/46 Pulse: 68 64 67 Resp: Temp: 36.5 ?C (97.7 ?F) 36.3 ?C (97.3 ?F) 36.4 ?C (97.5 ?F) TempSrc: Oral Oral Oral SpO2: 94% 97% 99% Weight: 97.6 kg (215 lb 3.2 oz) Height: PHYSICAL EXAMINATION General: Alert and oriented, no distress, pleasant and cooperative. Heart: Regular, normal S1 and S2, no murmurs, rubs, or gallops Lungs: Clear to auscultation bilaterally Abdomen: Benign Extremities: Feet/ankles without edema, posterior tibial pulses full and symmetrical DATA: Diagnostic tests reviewed for today's visit: Most recent labs and imaging results. CBC, Coags, BMP, Mg, Phos Recent Labs 01/29/18 0415 01/28/18 0455 01/27/18 2149 01/27/18 1515 WBC 7.29 5.97 -- 7.63 HB 11.3* 12.1 -- 12.1 HCT 33.7* 38.1 -- 38.6 PLT 142* 150 -- 165 INR -- -- -- 1.0 APTT -- -- -- 25.0 NA 138 141 132* 138 K 5.3* 4.6 5.0 4.7 CHLOR 97 96* 89* 96* CO2 32* 34* 27 32* BUN 50* 49* 49* 49* CREAT 1.66* 1.64* 1.59* 1.56* GLUC 210* 208* 507* 423* CA 8.7 9.0 8.5 8.6 MG -- -- -- 2.1 Assessment/Plan Principal Problem: Chest pain in adult ? ? HS trop 55, repeat 56 which is similar to readings at previous admission likely from CKD. Pt had external stress test 07/2017: no evidence of ischemia. Troponin 0.050 to 0.059 to 0.076, monitor on tele. Cards consulted. F/u recs - Chronic combined systolic and diastolic CHF (congestive heart failure) (HCC) ? ? Pt was just hospitalized for CHF exacerbation from 01/20/18-01/23/18. BNP 1300 improved from 2145 from last admit. Bu still believe she is volume overloaded Increased lasix to 80 mg BID IV, continue aldactone Watch for any volume contraction given new diarrhea - Atrial fibrillation (HCC) ? ? On eliquis. S/p pacemaker. Monitor on tele. - Pacemaker ? ? Had recent device interrogation 12/2017. - CAD (coronary artery disease) ? ? CABGx2 (DEBORAH-LAD, SVG-PDA ) in 2003 - Uncontrolled type 2 diabetes mellitus with stage 3 chronic kidney disease, with long-term current use of insulin (HCC) ? ? HbA1c: 12.0. Endocrinology saw pt during recent hospitalization. Continue recc lantus and humalog dosing. - Essential hypertension ? ? Stable, continue home meds. ? - Sleep apnea ? ? Wears CPAP at home, continue. Acute diarrhea- new, check for C diff. Monitor the fluid status. Contact isolation for now. VTE Prophylaxis: Patient is already anti-coagulated. Disposition: Home Plan of care discussed with: Patient and RN SIGNATURE: Peyman Guerrero MD PATIENT NAME: Luz Baca DATE: January 29, 2018 TIME: 1:10 PM PAGER/CONTACT #: [phone] CONSULT PROG Observed: 01/29/2018 Status: COMPLETED Source: [place] 12:48 PM CLINIC OTHER CAMPUS REPOSITORY HNO ID: [id number] Author: Clay Garcia Service: Clinical Cardiology Author Type: Physician Type: Consult Progress Note Filed: 01/29/2018 12:54 PM Note Text: 01/29/2018 CONSULT PROGRESS NOTE SERVICE TIME: 1010 ASSESSMENT AND PLAN ASHD - CABGx3 2003, PCIx6 RCA 2013, PCIx3 2014 HCM - septal myectomy 2003 CHF - acute on chronic diastolic, DAMION-I/ARB intolerance (CRF) Cardiomyopathy - ischemic, ICD 2015, revised 11/2016, beta lenny intolerance HTN DM HL MARLA - unable to tolerate CPAP PAF- anticoagulated with apixaban CKD Lasix increased to 80 mg IV bid per Dr. Yeung yesterday and spironolactone increased to BID Will need to watch for volume contraction given that she now has diarrhea. She does noted her SOB is much improved today. Switch to PO diuretics in the next 24-48 hrs. SIGNATURE: Clay Garcia, DO, FACC, FCCP, FACOI. PATIENT NAME: Luz Baca DATE: January 29, 2018 TIME: 1010 PAGER: [phone] CONSULT PROGRESS NOTE: CARDIOLOGY SERVICE PCP: Jameson Kamara MD ATTENDING: Peyman Guerrero REASON FOR CONSULT: Shortness of Breath Subjective HISTORY OF PRESENT ILLNESS: This is a 77 year old female with PMHx of HOCM s/p myectomy, chronic AF on eliquis, s/p pacemaker, CAD s/p multiple stents and CABG, CKD stage III, DMII, HTN, HLD, COPD (2L O2 continuous), who presents with CP that started around 5am today. Pain is intermitent and episodes last about 5 minutes, midsternal and around pacemaker without radiation, sharp and stabbing. Associated SOB worse than baseline. Denies n/v/d/f/c, diaphoresis. ? Pt was just hospitalized for CHF exacerbation from 01/20/18-01/23/18. ? HStrop 55, repeat 56 which is similar to readings at previous admission likely from CKD. BNP 1300 improved from 2145 from last admit. CKD: BUN 49, Cr 1.56 which is baseline. EKG paced rhythm. ? Pt had external stress test 07/2017: no evidence of ischemia. Pt had device interrogation last month. PAST MEDICAL HISTORY Diagnosis Date - Arthritis - Atrial fibrillation (HCC) - CAD (coronary artery disease) stents x9, defibrillator, CABG. Seeing Dr. Cardona - Cardiac defibrillator in place - Cardiomegaly - Carotid artery disease (HCC) left - CKD (chronic kidney disease), stage IV ([facility]) Dr. Martin - COPD (chronic obstructive pulmonary disease) ([facility]) Dr. Cruz - Depression - Diabetes ([facility]) - Diabetic neuropathy ([facility]) - GERD (gastroesophageal reflux disease) - Gout - HH (hiatus hernia) - HH (hiatus hernia) - HOCM (hypertrophic obstructive cardiomyopathy) ([facility]) - HOCM (hypertrophic obstructive cardiomyopathy) ([facility]) S/P Septal Myectomy in 2003. Echo 09/23/10 shows no visable GABRIEL. LVOT gradient is 8mmHg. - HTN (hypertension) - Hyperlipidemia - Morbid obesity with BMI of 40.0-44.9, adult ([facility]) - Pacemaker - Pneumonia h/o pneumonia/bronchitis - Renal insufficiency 2003 post op - Sleep apnea 2011 not on CPAP, unable to tolerate mask 02/2017 - SVT (supraventricular tachycardia) ([facility]) NSVT and questionable VT in 2003 post op PAST SURGICAL HISTORY Procedure Laterality Date - PAST SURGICAL HISTORY OF 07/18/2004 Septal myectomy and CABG x2 (DEBORAH-LAD, SVG-PDA). - PAST SURGICAL HISTORY OF left breast nodule removed - PAST SURGICAL HISTORY OF hysterectomy - PAST SURGICAL HISTORY OF perianal abscess drained - PAST SURGICAL HISTORY OF cholecystectomy - PAST SURGICAL HISTORY OF skin lesions removed FAMILY HISTORY Problem Relation Age of Onset - Hypertension Mother living at age 93, HTN - Heart Failure Mother [place] - Cancer Father age 71, lung cancer Social History Substance Use Topics - Smoking status: Former Smoker Packs/day: 2.50 Years: 43.00 Types: Cigarettes Start date: 1961 Quit date: 07/07/2004 - Smokeless tobacco: Never Used - Alcohol use No Prior to Admission Medications Prescriptions Last Dose Informant Patient Reported? Taking? OXYGEN, HOME THERAPY, Unknown at Unknown time Yes Yes Sig: Inhale 2.5 L/min as instructed continuous. 3 L/min when leaves home. albuterol (PROVENTIL) 5 mg/mL nebu No No Sig: Inhale 0.5 mL as instructed one time only for 1 dose. 1 DOSE NOW - BACK OFFICE. PLACE 0.5 ML PER DROPPER AND 2.5 ML OF NORMAL SALINE INTO RESERVOIR. Patient not taking: Reported on 01/26/2018 apixaban (ELIQUIS) 5 mg tab(s) 01/27/2018 at 0800 Yes Yes Sig: Take 5 mg by mouth twice daily. bacitracin (ANTIBIOTIC, BACITRACIN ZINC,) ointment 01/27/2018 at Unknown time No Yes Sig: Apply 1 application to affected area twice daily. furosemide (LASIX) 40 mg tablet 01/27/2018 at 0800 Yes Yes Sig: Take 80 mg by mouth twice daily. gabapentin (NEURONTIN) 300 mg capsule No No Sig: Take 2 capsules by mouth three times daily for 30 days. Patient taking differently: Take 600 mg by mouth twice daily. gabapentin (NEURONTIN) 300 mg capsule 01/27/2018 at 0800 Yes Yes Sig: Take 600 mg by mouth twice daily. guaiFENesin-dextromethorphan (ROBITUSSIN DM) 100-10 mg/5 mL syrup Unknown at Unknown time No Yes Sig: Take 5-10 mL by mouth every 6 hours as needed for Cough. insulin aspart U-100 (NOVOLOG FLEXPEN U-100 INSULIN) 100 unit/mL in 01/27/2018 at Unknown time Yes Yes Sig: Inject 12 Units subcutaneously three times daily with meals. insulin glargine (LANTUS SOLOSTAR U-100 INSULIN) 100 unit/mL (3 mL) in 01/27/2018 at 0800 Yes Yes Sig: Inject 50 Units subcutaneously every morning. insulin glargine (LANTUS SOLOSTAR U-100 INSULIN) 100 unit/mL (3 mL) in 01/26/2018 at 2200 Yes Yes Sig: Inject 36 Units subcutaneously daily at bedtime. ipratropium-albuterol (DUONEB) 0.5 mg-3 mg(2.5 mg base)/3 mL nebu Unknown at Unknown time No Yes Sig: Inhale 3 mL as instructed every 4 hours as needed. isosorbide mononitrate ER (IMDUR) 60 mg 24 hr tablet 01/27/2018 at 0800 No Yes Sig: Take 1 tablet by mouth once daily. nitroglycerin sublingual (NITROQUICK) 0.4 mg SL tablet Unknown at Unknown time No Yes Sig: Dissolve 1 tablet under the tongue every 5 minutes as needed. nystatin (NYSTOP) powder Unknown at Unknown time No Yes Sig: Apply 1 application to affected area three times daily. pantoprazole DR (PROTONIX) 40 mg tablet 01/27/2018 at 0800 Yes Yes Sig: Take 40 mg by mouth twice daily. potassium chloride (K-TAB) 10 mEq tablet 01/27/2018 at 0800 Yes Yes Sig: Take 10 mEq by mouth daily with breakfast. simvastatin (ZOCOR) 40 mg tablet 01/27/2018 at 0800 Yes Yes Sig: Take 40 mg by mouth every morning. spironolactone (ALDACTONE) 25 mg tablet 01/27/2018 at 0800 No Yes Sig: Take 1 tablet by mouth once daily. Facility-Administered Medications: None Current hospital medications: insulin lispro injection (rapid acting) (HumaLOG) SUBCUTANEOUS w MEALS AND HS insulin glargine 30 Units injection (long acting) (LANTUS) 30 Units SUBCUTANEOUS DAILY (8 AM) spironolactone 25 mg tab(s) (ALDACTONE) 25 mg ORAL BID 9a/5p furosemide 80 mg injection (LASIX) 80 mg INTRAVENOUS BID 9a/5p gabapentin 600 mg cap(s) (NEURONTIN) 600 mg ORAL BID simvastatin 40 mg tab(s) (ZOCOR) 40 mg ORAL AT BEDTIME ipratropium-albuterol 3 mL nebulizer solution (DUONEB) 3 mL INHALATION q 4 H PRN apixaban 5 mg tab(s) (ELIQUIS) 5 mg ORAL BID insulin glargine 40 Units injection (long acting) (LANTUS) 40 Units SUBCUTANEOUS AT BEDTIME pantoprazole DR 40 mg tab(s) (PROTONIX) 40 mg ORAL BID bacitracin 1 application topical ointment 1 application TOPICAL BID isosorbide mononitrate ER 60 mg tab(s) (IMDUR) 60 mg ORAL DAILY 0.9% NaCl 3-5 mL 3-5 mL INTRAVENOUS q 12 H dextrose 40 % 15 g 15 g ORAL PRN glucagon 1 mg injection (GLUCAGEN) 1 mg INTRAMUSCULAR PRN dextrose 50% in water 25 mL syringe 12.5 g INTRAVENOUS PRN insulin lispro 12 Units injection (rapid acting) (HumaLOG) 12 Units SUBCUTANEOUS w MEALS miconazole 2 % 1 application topical powder (LOTRIMIN AF, DESENEX) 1 application TOPICAL BID ALLERGIES Allergen Reactions - Aspirin Other: See Comments Patient states that she bled out every orifice, sts not allowed to take it at all. Patient states she was bleeding out of nose and mouth after one dose. - Bactrim [Sulfametho* Other: See Comments My throat swells up. - Latex Rash, Itching Itching and welts. No wheezing or shortness of breath. - Penicillins Rash, Itching Tolerated ceftriaxone during 11/2017 admission and cefepime during 12/2017 admission - Tetracycline Rash, GI Upset Emesis and diarrhea. - Atorvastatin Rash - Codeine Other: See Comments Numbness - Dilaudid [Hydromorp* Mental Status Change - Meperidine - Pentazocine - Pioglitazone Unknown - Propoxyphene CARDIAC STATUS: Chest Pain: Denies Dyspnea: Dyspnea at rest Ankle Edema: Pitting, +2 bilateral to ankles Arrhythmia: Negative, Patient denies palpitations, lightheadedness, dizziness, syncope or near syncope. Functional Capacity: Average Activity includes Sedentary REVIEW OF SYSTEMS: The following systems were reviewed with the patient, and are unremarkable other than as described below. SYSTEMIC: No fever, chills, or change in weight or appetite HEENT: No recent change in vision or hearing. CARDIOVASCULAR: No murmur, gallop. Denies chest pain or palpitations. GI: No recent nausea, vomiting or diarrhea. : No recent hematuria or dysuria. SKIN: No recent itching or eruption. PSYCH: No recent active anxiety or depression. HEMATOLOGY/ONCOLOGY: No recent diagnosis of bleeding or cancer. ENDOCRINE: No recent polyuria or heat intolerance. NEURO: No recent TIA, stroke or seizures. RHEUMATOLOGY: No recent active connective tissue disease. Objective PHYSICAL EXAM: Pleasant, comfortable, not in acute distress. Awake, alert, oriented times 3. Moves all extremities. SKIN: No rash or lumps. HEENT: Normocephalic, face symmetrical. NECK: JVD, 15 cm in height, No carotid bruits, Carotid pulse normal contour, Supple LUNGS: decreased breath sounds bilaterally CARDIAC: PMI present, RRR, S1 and S2, no S3 or S4, no additional heart sounds or murmurs. ABDOMEN: Soft, nontender, bowel sounds present. EXTREMITIES: No edema. PULSES: Peripheral pulses present. Body mass index is 32.72 kg/(m2). O2 Therapy: Nasal Cannula No Data Recorded Patient Vitals for the past 48 hrs: BP Temp Temp src Pulse Resp SpO2 Height Weight 01/28/18 2347 126/58 36.4 ?C (97.5 ?F) Oral 64 16 95 % - - 01/28/18 1936 127/64 36.7 ?C (98.1 ?F) Oral 64 16 97 % - - 01/28/18 1603 107/91 36.5 ?C (97.7 ?F) Oral 64 20 98 % - - 01/28/18 1107 123/57 36.5 ?C (97.7 ?F) Oral 63 18 97 % - - 01/28/18 0837 - - - 66 20 - - - 01/28/18 0828 - - - 65 20 99 % - - 01/28/18 0724 135/67 36.4 ?C (97.5 ?F) Oral 64 18 95 % - - 01/28/18 0600 - - - - - - - 103 kg (227 lb) 01/28/18 0305 (!) 112/49 36.4 ?C (97.5 ?F) Oral 60 18 98 % - - 01/28/18 0135 (!) 115/44 36.3 ?C (97.3 ?F) Oral 63 18 96 % - - 01/27/18 2302 143/61 - - 64 - - - - 01/27/18 2221 - - - 62 20 - - - 01/27/18 2210 - - - 60 20 100 % - - 01/27/182014 128/72 36.9 ?C (98.4 ?F) Oral 64 20 98 % - - 01/27/18 1908 139/65 - - 80 - 97 % - - 01/27/18 1729 140/66 36.6 ?C (97.8 ?F) Oral 64 20 95 % - - 01/27/18 1620 138/62 - - 60 16 98 % - - 01/27/18 1440 123/53 36.9 ?C (98.4 ?F) Oral 62 19 (!) 93 % 172.7 cm (5' 8) 105.2 kg (232 lb) DATA: Diagnostic tests reviewed for today's visit: Most recent labs Most recent imaging Most recent EKG Past 72 Hour Labs: Recent Labs 01/28/18 0455 01/27/18 1515 CK -- -- 49 TROPT 0.076* < > -- WBC 5.97 -- 7.63 RBC 3.91 -- 3.93 HB 12.1 -- 12.1 HCT 38.1 -- 38.6 MCV 97.4 -- 98.2 MCH 30.9 -- 30.8 MCHC 31.8 -- 31.3 RDWCV 15.1* -- 15.3* PLT 150 -- 165 MPV 9.8 -- 9.7 NEUTP -- -- 70.0 LYMPHP -- -- 19.0 MONOP -- -- 9.4 EODINP -- -- 1.2 BASOP -- -- 0.4 ABSNEUT -- -- 5.34 ABSMONO -- -- 0.72 ABSEOSIN -- -- 0.09 ABSBASO -- -- 0.03 GLUC 208* < > 423* BUN 49* < > 49* CREAT 1.64* < > 1.56* NA 141 < > 138 K 4.6 < > 4.7 CHLOR 96* < > 96* CO2 34* < > 32* TPROT 6.3 -- 6.6 ALB 3.4* -- 3.3* CA 9.0 < > 8.6 ALKPHOS 96 -- 105 TBILI 0.5 -- 0.4 AST 22 -- 19 ALT 25 -- 26 PTSEC -- -- 10.1 APTT -- -- 25.0 INR -- -- 1.0 MG -- -- 2.1 < > = values in this interval not displayed. Last Lab Drawn: TSH 1.300 2010 Triglyceride 137 05/17/2017 HDL Cholesterol 34 05/17/2017 LDL Cholesterol 84 05/17/2017 Cholesterol, Total 145 05/17/2017 SIGNATURE:Clay Garcia, DO, FACC, FCCP, FACOI. PATIENT NAME: Luz Baca DATE: January 29, 2018 TIME: 1010 PAGER/CONTACT #: NURSING PROG Observed: 01/29/2018 Status: COMPLETED Source: [place] 7:44 AM CLINIC OTHER CAMPUS REPOSITORY O ID: [id number] Author: Charlotte (Rn) ALLYSON Leary Service: (none) Author Type: Registered Nurse Type: Nursing Progress Note Filed: 01/29/2018 6:16 PM Note Text: Nursing Progress Note Patient Name: Luz Baca [place] [facility] [id number] Daily Note:0744: Attending paged to address potassium this AM reading 5.3. 0900: Kayexelate prescribed per attending and given at this time. 1315: Attending at bedside, and he states that the patient has verbalized to him she has had a total of 5 loose stools since arrival, even though she has only gone twice for today's staff. He reports he would like to r/o c diff at this time. Pt placed in isolation. This note was completed by: CHARLOTTE LEARY RN CBC Collected: 01/29/2018 Status: F Source: [place] 4:15 AM CLINIC OTHER CAMPUS REPOSITORY TYPE CODE TESTS RESULT OUT OF REFERENCE UNITS RANGE LAB WBC 3.70-11.00 k/uL WBC 7.29 LAB RBC 3.90-5.20 m/uL Low RBC 3.44 LAB HGB 11.5-15.5 g/dL Low Hemoglobin 11.3 LAB HCT 36.0-46.0 % Low Hematocrit 33.7 LAB MCV 80.0-100.0 fL MCV 98.0 LAB MCH 26.0-34.0 pG MCH 32.8 LAB MCHC 30.5-36.0 g/dL MCHC 33.5 LAB RDWCV 11.5-15.0 % RDW-CV High 15.3 LAB PLTCT 150-400 k/uL Low Platelet Count 142 LAB MPV 9.0-12.7 fL MPV 9.6 Performed By: #### CBC, CMP #### [facility] [address] [facility] [phone] COMP METABOLIC PANEL Collected: 01/29/2018 Status: F Source: [place] 4:15 AM [facility] OTHER CAMPUS REPOSITORY TYPE CODE TESTS RESULT OUT OF REFERENCE UNITS RANGE LAB TP 6.3-8.0 g/dL Low Protein, Total 6.0 LAB ALB 3.9-4.9 g/dL Low Albumin 2.8 LAB CA 8.5-10.2 mg/dL Calcium, Total 8.7 LAB TBIL 0.2-1.3 mg/dL Bilirubin, Total 0.4 LAB ALKP 32-117 U/L Alkaline Phosphatase 71 LAB AST 13-35 U/L AST High 36 Result Comment: Results may be falsely increased due to interference by hemolysis. Suggest reorder as clinically indicated. LAB GLU 74-99 mg/dL High Glucose 210 Result Comment: The [place] [employer] (ADA) provides guidance for cutoff values for fasting glucose and random glucose. The ADA defines fasting as no caloric intake for at least 8 hours. Fas ting plasma glucose results between 100 to 125 mg/dL indicate increased risk for diabetes (prediabetes). Fasting plasma glucose results greater than or equal to 126 mg/dL meet the criteria for diagnosis of diabetes. In the absence of unequivocal hyperglycemia, results should be confirmed by repeat testing. In a patient with classic symptoms of hyperglycemia or hyperglycemic crisis, random plasma glucose results greater than or equal to 200 mg/dL meet the criteria for diagnosis of diabetes. Reference: Standards of Medical Care in Diabetes 2016, [place] [employer]. Diabetes Care. 2016.39(Suppl 1). LAB BUN 7-21 mg/dL BUN High 50 LAB CRET 0.58-0.96 mg/dL Creatinine High 1.66 LAB NA 136-144 mmol/L Sodium 138 LAB K 3.7-5.1 mmol/L Potassium High 5.3 Result Comment: Results may be falsely increased due to interference by hemolysis. Suggest reorder as clinically indicated. LAB CL 97-105 mmol/L Chloride 97 LAB CO2 22-30 mmol/L CO2 High 32 LAB AGAP 9-18 mmol/L Anion Gap 9 LAB ALT 7-38 U/L ALT 22 LAB GFRAA eGFR- Amer. 36 LAB GFRNAA . eGFR-All Other Races 30 Result Comment: eGFR (Estimated GFR) Units of measure: mL/min/1.73 meters squared eGFR is derived from the reexpressed MDRD Study equation using the following parameters: serum creatinine, age, gender and race. The creatinine assay has been calibrated to be traceable to IDMS. An eGFR <60 mL/min/1.73m2 for >3 months is consistent with chronic kidney disease. Refer to KDOQI guidelines for clinical interpretation. In patients with unstable renal function, e.g. those with acute kidney injury, the eGFR may not accurately reflect actual GFR. Performed By: #### CBC, CMP #### [facility] [address] [place] [address] CASE MANAGEM Observed: 01/28/2018 Status: COMPLETED Source: [place] 4:08 PM CLINIC OTHER CAMPUS REPOSITORY HNO ID: [id number] Author: Glendy Briseno) ALLYSON Sales Service: Care Management Author Type: Registered Nurse Type: Care Mgt Progress Note Filed: 01/28/2018 4:10 PM Note Text: CARE MANAGEMENT PROGRESS NOTE SERVICE DATE: 01/28/2018 SERVICE TIME: 4:08 PM LOS: 0 days Needs Prior to Discharge: To Be Determined Chart reviewed, continued IV diuresis today. If dyspnea does not improve, may need stress test or heart cath. CM met with pt and her daughter Octavia at bedside. Reconfirmed plan to return home with continued HHC with [facility]. Both deny questions or concerns. TCC to remain available for continued discharge planning. SIGNATURE: Glendy Sales RN PATIENT NAME: Luz Baca DATE: January 28, 2018 TIME: 4:08 PM PAGER/CONTACT #: [phone] CONSULT Observed: 01/28/2018 Status: COMPLETED Source: [place] 2:23 PM CLINIC OTHER CAMPUS REPOSITORY O ID: [id number] Author: Jose C Yeung Service: Clinical Cardiology Author Type: Physician Type: Consults Filed: 01/29/2018 1:07 AM Note Text: BRIEF CONSULT NOTE SERVICE DATE: 01/28/2018 SERVICE TIME: 2:23 PM Patient seen and examined Formal consult note to follow ASSESSMENT AND PLAN ASHD - CABGx3 2004, PCIx6 RCA 2013, PCIx3 2015 HCM - septal myectomy 2003 CHF - acute on chronic diastolic, DAMION-I/ARB intolerance (CRF) Cardiomyopathy - ischemic, ICD 2015, revised 11/2016, beta lenny intolerance HTN DM HL MARLA - unable to tolerate CPAP PAF- anticoagulated with apixaban CKD I think that her heart failure may not have been completely treated on her last admission; despite the fact that her NTpBNP is lower, she continues to have signs of volume overload; she has no wheezing on exam to suggest bronchospasm I would increase lasix to 80 mg IV bid, continue spironolactone and increase to BID If her dyspnea does not improve with diuresis, consider repeat stress testing or R+L heart cath for ischemic evaluation Although she had reportedly been intolerant in the past, consider resuming beta-lenny Dr. Garcia to cover starting tomorrow SIGNATURE: Jose C Yeung MD PATIENT NAME: Luz Baca DATE: January 28, 2018 TIME: 2:23 PM PAGER: [phone] CONSULT: CARDIOLOGY SERVICE CONSULTING PHYSICIAN: Jose C Yeung MD PCP: Jameson Kamara MD ATTENDING: Peyman Guerrero REASON FOR CONSULT: Shortness of Breath Subjective CHIEF COMPLAINT: Cardiac enzymes elevated [R74.8] HISTORY OF PRESENT ILLNESS: This is a 77 year old female with PMHx of HOCM s/p myectomy, chronic AF on eliquis, s/p pacemaker, CAD s/p multiple stents and CABG, CKD stage III, DMII, HTN, HLD, COPD (2L O2 continuous), who presents with CP that started around 5am today. Pain is intermitent and episodes last about 5 minutes, midsternal and around pacemaker without radiation, sharp and stabbing. Associated SOB worse than baseline. Denies n/v/d/f/c, diaphoresis. ? Pt was just hospitalized for CHF exacerbation from 01/20/18-01/23/18. ? HStrop 55, repeat 56 which is similar to readings at previous admission likely from CKD. BNP 1300 improved from 2145 from last admit. CKD: BUN 49, Cr 1.56 which is baseline. EKG paced rhythm. ? Pt had external stress test 07/2017: no evidence of ischemia. Pt had device interrogation last month. PAST MEDICAL HISTORY Diagnosis Date - Arthritis - Atrial fibrillation (HCC) - CAD (coronary artery disease) stents x9, defibrillator, CABG. Seeing Dr. Cardona - Cardiac defibrillator in place - Cardiomegaly - Carotid artery disease (HCC) left - CKD (chronic kidney disease), stage IV ([facility]) Dr. Martin - COPD (chronic obstructive pulmonary disease) ([facility]) Dr. Cruz - Depression - Diabetes ([facility]) - Diabetic neuropathy ([facility]) - GERD (gastroesophageal reflux disease) - Gout - HH (hiatus hernia) - HH (hiatus hernia) - HOCM (hypertrophic obstructive cardiomyopathy) ([facility]) - HOCM (hypertrophic obstructive cardiomyopathy) ([facility]) S/P Septal Myectomy in 2003. Echo 09/23/10 shows no visable GABRIEL. LVOT gradient is 8mmHg. - HTN (hypertension) - Hyperlipidemia - Morbid obesity with BMI of 40.0-44.9, adult ([facility]) - Pacemaker - Pneumonia h/o pneumonia/bronchitis - Renal insufficiency 2003 post op - Sleep apnea 2011 not on CPAP, unable to tolerate mask 02/2017 - SVT (supraventricular tachycardia) ([facility]) NSVT and questionable VT in 2003 post op PAST SURGICAL HISTORY Procedure Laterality Date - PAST SURGICAL HISTORY OF 07/18/2004 Septal myectomy and CABG x2 (DEBORAH-LAD, SVG-PDA). - PAST SURGICAL HISTORY OF left breast nodule removed - PAST SURGICAL HISTORY OF hysterectomy - PAST SURGICAL HISTORY OF perianal abscess drained - PAST SURGICAL HISTORY OF cholecystectomy - PAST SURGICAL HISTORY OF skin lesions removed FAMILY HISTORY Problem Relation Age of Onset - Hypertension Mother living at age 93, HTN - Heart Failure Mother [place] - Cancer Father age 71, lung cancer Social History Substance Use Topics - Smoking status: Former Smoker Packs/day: 2.50 Years: 43.00 Types: Cigarettes Start date: 1961 Quit date: 07/07/2004 - Smokeless tobacco: Never Used - Alcohol use No Prior to Admission Medications Prescriptions Last Dose Informant Patient Reported? Taking? OXYGEN, HOME THERAPY, Unknown at Unknown time Yes Yes Sig: Inhale 2.5 L/min as instructed continuous. 3 L/min when leaves home. albuterol (PROVENTIL) 5 mg/mL nebu No No Sig: Inhale 0.5 mL as instructed one time only for 1 dose. 1 DOSE NOW - BACK OFFICE. PLACE 0.5 ML PER DROPPER AND 2.5 ML OF NORMAL SALINE INTO RESERVOIR. Patient not taking: Reported on 01/26/2018 apixaban (ELIQUIS) 5 mg tab(s) 01/27/2018 at 0800 Yes Yes Sig: Take 5 mg by mouth twice daily. bacitracin (ANTIBIOTIC, BACITRACIN ZINC,) ointment 01/27/2018 at Unknown time No Yes Sig: Apply 1 application to affected area twice daily. furosemide (LASIX) 40 mg tablet 01/27/2018 at 0800 Yes Yes Sig: Take 80 mg by mouth twice daily. gabapentin (NEURONTIN) 300 mg capsule No No Sig: Take 2 capsules by mouth three times daily for 30 days. Patient taking differently: Take 600 mg by mouth twice daily. gabapentin (NEURONTIN) 300 mg capsule 01/27/2018 at 0800 Yes Yes Sig: Take 600 mg by mouth twice daily. guaiFENesin-dextromethorphan (ROBITUSSIN DM) 100-10 mg/5 mL syrup Unknown at Unknown time No Yes Sig: Take 5-10 mL by mouth every 6 hours as needed for Cough. insulin aspart U-100 (NOVOLOG FLEXPEN U-100 INSULIN) 100 unit/mL in 01/27/2018 at Unknown time Yes Yes Sig: Inject 12 Units subcutaneously three times daily with meals. insulin glargine (LANTUS SOLOSTAR U-100 INSULIN) 100 unit/mL (3 mL) in 01/27/2018 at 0800 Yes Yes Sig: Inject 50 Units subcutaneously every morning. insulin glargine (LANTUS SOLOSTAR U-100 INSULIN) 100 unit/mL (3 mL) in 01/26/2018 at 2200 Yes Yes Sig: Inject 36 Units subcutaneously daily at bedtime. ipratropium-albuterol (DUONEB) 0.5 mg-3 mg(2.5 mg base)/3 mL nebu Unknown at Unknown time No Yes Sig: Inhale 3 mL as instructed every 4 hours as needed. isosorbide mononitrate ER (IMDUR) 60 mg 24 hr tablet 01/27/2018 at 0800 No Yes Sig: Take 1 tablet by mouth once daily. nitroglycerin sublingual (NITROQUICK) 0.4 mg SL tablet Unknown at Unknown time No Yes Sig: Dissolve 1 tablet under the tongue every 5 minutes as needed. nystatin (NYSTOP) powder Unknown at Unknown time No Yes Sig: Apply 1 application to affected area three times daily. pantoprazole DR (PROTONIX) 40 mg tablet 01/27/2018 at 0800 Yes Yes Sig: Take 40 mg by mouth twice daily. potassium chloride (K-TAB) 10 mEq tablet 01/27/2018 at 0800 Yes Yes Sig: Take 10 mEq by mouth daily with breakfast. simvastatin (ZOCOR) 40 mg tablet 01/27/2018 at 0800 Yes Yes Sig: Take 40 mg by mouth every morning. spironolactone (ALDACTONE) 25 mg tablet 01/27/2018 at 0800 No Yes Sig: Take 1 tablet by mouth once daily. Facility-Administered Medications: None Current hospital medications: insulin lispro injection (rapid acting) (HumaLOG) SUBCUTANEOUS w MEALS AND HS insulin glargine 30 Units injection (long acting) (LANTUS) 30 Units SUBCUTANEOUS DAILY (8 AM) spironolactone 25 mg tab(s) (ALDACTONE) 25 mg ORAL BID 9a/5p furosemide 80 mg injection (LASIX) 80 mg INTRAVENOUS BID 9a/5p gabapentin 600 mg cap(s) (NEURONTIN) 600 mg ORAL BID simvastatin 40 mg tab(s) (ZOCOR) 40 mg ORAL AT BEDTIME ipratropium-albuterol 3 mL nebulizer solution (DUONEB) 3 mL INHALATION q 4 H PRN apixaban 5 mg tab(s) (ELIQUIS) 5 mg ORAL BID insulin glargine 40 Units injection (long acting) (LANTUS) 40 Units SUBCUTANEOUS AT BEDTIME pantoprazole DR 40 mg tab(s) (PROTONIX) 40 mg ORAL BID bacitracin 1 application topical ointment 1 application TOPICAL BID isosorbide mononitrate ER 60 mg tab(s) (IMDUR) 60 mg ORAL DAILY 0.9% NaCl 3-5 mL 3-5 mL INTRAVENOUS q 12 H dextrose 40 % 15 g 15 g ORAL PRN glucagon 1 mg injection (GLUCAGEN) 1 mg INTRAMUSCULAR PRN dextrose 50% in water 25 mL syringe 12.5 g INTRAVENOUS PRN insulin lispro 12 Units injection (rapid acting) (HumaLOG) 12 Units SUBCUTANEOUS w MEALS miconazole 2 % 1 application topical powder (LOTRIMIN AF, DESENEX) 1 application TOPICAL BID ALLERGIES Allergen Reactions - Aspirin Other: See Comments Patient states that she bled out every orifice, sts not allowed to take it at all. Patient states she was bleeding out of nose and mouth after one dose. - Bactrim [Sulfametho* Other: See Comments My throat swells up. - Latex Rash, Itching Itching and welts. No wheezing or shortness of breath. - Penicillins Rash, Itching Tolerated ceftriaxone during 11/2017 admission and cefepime during 12/2017 admission - Tetracycline Rash, GI Upset Emesis and diarrhea. - Atorvastatin Rash - Codeine Other: See Comments Numbness - Dilaudid [Hydromorp* Mental Status Change - Meperidine - Pentazocine - Pioglitazone Unknown - Propoxyphene CARDIAC STATUS: Chest Pain: Denies Dyspnea: Dyspnea at rest Ankle Edema: Pitting, +2 bilateral to ankles Arrhythmia: Negative, Patient denies palpitations, lightheadedness, dizziness, syncope or near syncope. Functional Capacity: Average Activity includes Sedentary REVIEW OF SYSTEMS: The following systems were reviewed with the patient, and are unremarkable other than as described below. SYSTEMIC: No fever, chills, or change in weight or appetite HEENT: No recent change in vision or hearing. CARDIOVASCULAR: No murmur, gallop. Denies chest pain or palpitations. GI: No recent nausea, vomiting or diarrhea. : No recent hematuria or dysuria. SKIN: No recent itching or eruption. PSYCH: No recent active anxiety or depression. HEMATOLOGY/ONCOLOGY: No recent diagnosis of bleeding or cancer. ENDOCRINE: No recent polyuria or heat intolerance. NEURO: No recent TIA, stroke or seizures. RHEUMATOLOGY: No recent active connective tissue disease. Objective PHYSICAL EXAM: Pleasant, comfortable, not in acute distress. Awake, alert, oriented times 3. Moves all extremities. SKIN: No rash or lumps. HEENT: Normocephalic, face symmetrical. NECK: JVD, 15 cm in height, No carotid bruits, Carotid pulse normal contour, Supple LUNGS: decreased breath sounds bilaterally CARDIAC: PMI present, RRR, S1 and S2, no S3 or S4, no additional heart sounds or murmurs. ABDOMEN: Soft, nontender, bowel sounds present. EXTREMITIES: No edema. PULSES: Peripheral pulses present. Body mass index is 34.52 kg/(m2). O2 Therapy: Nasal Cannula No Data Recorded Patient Vitals for the past 48 hrs: BP Temp Temp src Pulse Resp SpO2 Height Weight 01/28/18 2347 126/58 36.4 ?C (97.5 ?F) Oral 64 16 95 % - - 01/28/18 1936 127/64 36.7 ?C (98.1 ?F) Oral 64 16 97 % - - 01/28/18 1603 107/91 36.5 ?C (97.7 ?F) Oral 64 20 98 % - - 01/28/18 1107 123/57 36.5 ?C (97.7 ?F) Oral 63 18 97 % - - 01/28/18 0837 - - - 66 20 - - - 01/28/18 0828 - - - 65 20 99 % - - 01/28/18 0724 135/67 36.4 ?C (97.5 ?F) Oral 64 18 95 % - - 01/28/18 0600 - - - - - - - 103 kg (227 lb) 01/28/18 0305 (!) 112/49 36.4 ?C (97.5 ?F) Oral 60 18 98 % - - 01/28/18 0135 (!) 115/44 36.3 ?C (97.3 ?F) Oral 63 18 96 % - - 01/27/18 2302 143/61 - - 64 - - - - 01/27/181 - - - 62 20 - - - 01/27/180 - - - 60 20 100 % - - 01/27/182014 128/72 36.9 ?C (98.4 ?F) Oral 64 20 98 % - - 01/27/18 1908 139/65 - - 80 - 97 % - - 01/27/18 1729 140/66 36.6 ?C (97.8 ?F) Oral 64 20 95 % - - 01/27/18 1620 138/62 - - 60 16 98 % - - 01/27/18 1440 123/53 36.9 ?C (98.4 ?F) Oral 62 19 (!) 93 % 172.7 cm (5' 8) 105.2 kg (232 lb) DATA: Diagnostic tests reviewed for today's visit: Most recent labs Most recent imaging Most recent EKG Past 72 Hour Labs: Recent Labs 01/28/18 0455 01/27/18 1515 CK -- -- 49 TROPT 0.076* < > -- WBC 5.97 -- 7.63 RBC 3.91 -- 3.93 HB 12.1 -- 12.1 HCT 38.1 -- 38.6 MCV 97.4 -- 98.2 MCH 30.9 -- 30.8 MCHC 31.8 -- 31.3 RDWCV 15.1* -- 15.3* PLT 150 -- 165 MPV 9.8 -- 9.7 NEUTP -- -- 70.0 LYMPHP -- -- 19.0 MONOP -- -- 9.4 EODINP -- -- 1.2 BASOP -- -- 0.4 ABSNEUT -- -- 5.34 ABSMONO -- -- 0.72 ABSEOSIN -- -- 0.09 ABSBASO -- -- 0.03 GLUC 208* < > 423* BUN 49* < > 49* CREAT 1.64* < > 1.56* NA 141 < > 138 K 4.6 < > 4.7 CHLOR 96* < > 96* CO2 34* < > 32* TPROT 6.3 -- 6.6 ALB 3.4* -- 3.3* CA 9.0 < > 8.6 ALKPHOS 96 -- 105 TBILI 0.5 -- 0.4 AST 22 -- 19 ALT 25 -- 26 PTSEC -- -- 10.1 APTT -- -- 25.0 INR -- -- 1.0 MG -- -- 2.1 < > = values in this interval not displayed. Last Lab Drawn: TSH 1.300 2010 Triglyceride 137 05/17/2017 HDL Cholesterol 34 05/17/2017 LDL Cholesterol 84 05/17/2017 Cholesterol, Total 145 05/17/2017 SIGNATURE: Jose C Yeung MD PATIENT NAME: Luz Baca DATE: January 29, 2018 TIME: 1:02 AM PAGER/CONTACT #: [phone] ED Observed: 01/28/2018 Status: COMPLETED Source: [place] 2:06 PM CLIN[facility] OTHER CAMPUS REPOSITORY O ID: [id number] Author: Clemente Rose (Expert Medical Writer) Service: (none) Author Type: (none) Type: Patient Education Filed: 01/28/2018 2:10 PM Note Text: Attestation signed by Evy Kilgore (Pharmacist) at 01/28/2018 3:17 PM Preceptor Addendum: This case has been reviewed and discussed with the pharmacy resident. I agree with the assessment/plan described by the student. Changes and additions to the details in the note are indicated by italics and . Evy Kilgore, Pharmacist Heart Failure Education Note Patient Name:.Luz WATKINSN: [id number] Service Date: 01/28/2018 Service Time: 2:07 PM Heart Failure Education Provided: Patient was provided written and verbal instructions of heart failure management, activity as tolerated, signs and symptoms of heart failure/worsening heart failure, and to contact their physician if exhibits these symptoms. Instructed patient to contact his or her HF physician if his or her weight increases or decreases more than or equal to 4 lbs from dry weight. Medication Education Provided: 1. Reason for taking medications and treatment goals. 2. Benefits of medication therapy. 3. How medications work. 4. When to take medications and what to do is a dose is missed. 5. Potential side effects of medications. 6. Importance of regularly filling prescriptions and taking medications. Patient was given opportunity to ask questions and receive answers. Current Inpatient Medications: Current hospital medications: insulin lispro injection (rapid acting) (HumaLOG) SUBCUTANEOUS w MEALS AND HS insulin glargine 30 Units injection (long acting) (LANTUS) 30 Units SUBCUTANEOUS DAILY (8 AM) spironolactone 25 mg tab(s) (ALDACTONE) 25 mg ORAL BID 9a/5p furosemide 80 mg injection (LASIX) 80 mg INTRAVENOUS BID 9a/5p gabapentin 600 mg cap(s) (NEURONTIN) 600 mg ORAL BID simvastatin 40 mg tab(s) (ZOCOR) 40 mg ORAL AT BEDTIME ipratropium-albuterol 3 mL nebulizer solution (DUONEB) 3 mL INHALATION q 4 H PRN apixaban 5 mg tab(s) (ELIQUIS) 5 mg ORAL BID insulin glargine 40 Units injection (long acting) (LANTUS) 40 Units SUBCUTANEOUS AT BEDTIME pantoprazole DR 40 mg tab(s) (PROTONIX) 40 mg ORAL BID bacitracin 1 application topical ointment 1 application TOPICAL BID isosorbide mononitrate ER 60 mg tab(s) (IMDUR) 60 mg ORAL DAILY 0.9% NaCl 3-5 mL 3-5 mL INTRAVENOUS q 12 H dextrose 40 % 15 g 15 g ORAL PRN glucagon 1 mg injection (GLUCAGEN) 1 mg INTRAMUSCULAR PRN dextrose 50% in water 25 mL syringe 12.5 g INTRAVENOUS PRN insulin lispro 12 Units injection (rapid acting) (HumaLOG) 12 Units SUBCUTANEOUS w MEALS miconazole 2 % 1 application topical powder (LOTRIMIN AF, DESENEX) 1 application TOPICAL BID READINESS TO LEARN COGNITIVE ABILITY: Alert and oriented MOTIVATION TO LEARN: Eager Interested FAMILY SUPPORT: High - Very involved in pt care INSTRUCTION PROVIDED TO: Patient and Family member PATIENT LEARNS BEST BY: Unable to Assess FACTORS AFFECTING LEARNING: None PHYSICAL LIMITATIONS AFFECTING LEARNING: None LEARNING RESPONSE DIAGNOSIS: Heart Failure PATIENT/FAMILY RESPONSE: Verbalizes understanding of: The signs and symptoms of a worsening condition that warrant a call to the physician. The correct actions to take to manage symptoms associated with his/her disease/illness. Accurate knowledge of prescribed medication prior to discharge. The side effects associated with the medication that warrant a call to the physician. Fluid restrictions Diet / weight monitoring METHOD OF INSTRUCTION: Written instruction - handouts Verbal instruction FOLLOW-UP PLAN: Complete - No need for follow-up INSTRUCTIONAL AIDS USED: Your Guide to Managing Heart Failure SUPPLEMENTAL MATERIAL PROVIDED: Heart Failure education handout FURTHER RECOMMENDATIONS (IF ANY): None SIGNATURE: Clemente Rose (Expert Medical Writer) PAGER: [phone] PROGRESS Observed: 01/28/2018 Status: COMPLETED Source: [place] 1:13 PM [facility] OTHER CAMPUS REPOSITORY HNO ID: [id number] Author: Peyman Guerrero Service: Hospital Medicine Author Type: Physician Type: Progress Notes Filed: 01/28/2018 1:16 PM Note Text: DEPARTMENT OF HOSPITAL MEDICINE PROGRESS NOTE SERVICE DATE: 01/28/2018 SERVICE TIME: 1:13 PM Hospital Medicine/Primary Attending: Peyman Guerrero MD NIGHT AND WEEKEND COVERAGE: Nights: Please contact pager [phone]. Subjective Subjective Pt still reports chest pain, intermittent, non exertional SOB is seemed to be at baseline, on oxygen support Denies any N/V/abdominal pain Stable vitals MEDICATIONS: Reviewed Objective Physical Exam Performed Objective Lines, Drains, and Airways Line Peripheral 01/27/18 1516 Left Antecubital 20 Gauge less than 1 day Reviewed lines, drains, airways. Will discuss with nurse and discontinue at discharge 01/28/18 0724 01/28/18 0828 01/28/18 0837 01/28/18 1107 BP: 135/67 123/57 Pulse: 64 65 66 63 Resp: Temp: 36.4 ?C (97.5 ?F) 36.5 ?C (97.7 ?F) TempSrc: Oral Oral SpO2: 95% 99% 97% Weight: Height: PHYSICAL EXAMINATION General: Alert and oriented, no distress, pleasant and cooperative. Heart: Regular, normal S1 and S2, no murmurs, rubs, or gallops Lungs: Clear to auscultation bilaterally Abdomen: Benign Extremities: Feet/ankles without edema, posterior tibial pulses full and symmetrical DATA: Diagnostic tests reviewed for today's visit: Most recent labs and imaging results. CBC, Coags, BMP, Mg, Phos Recent Labs 01/28/18 0455 01/27/18 2149 01/27/18 1515 01/26/18 1244 WBC 5.97 -- 7.63 8.66 HB 12.1 -- 12.1 12.5 HCT 38.1 -- 38.6 39.7 PLT 150 -- 165 154 INR -- -- 1.0 -- APTT -- -- 25.0 -- NA 141 132* 138 136 K 4.6 5.0 4.7 5.1 CHLOR 96* 89* 96* 96* CO2 34* 27 32* 26 BUN 49* 49* 49* 45* CREAT 1.64* 1.59* 1.56* 1.49* GLUC 208* 507* 423* 390* CA 9.0 8.5 8.6 8.6 MG -- -- 2.1 2.5* Assessment/Plan Principal Problem: Chest pain in adult ? ? HS trop 55, repeat 56 which is similar to readings at previous admission likely from CKD. Pt had external stress test 07/2017: no evidence of ischemia. Cycle CE, monitor on tele. Cards consulted. F/u recs - Chronic combined systolic and diastolic CHF (congestive heart failure) (HCC) ? ? Pt was just hospitalized for CHF exacerbation from 01/20/18-01/23/18. BNP 1300 improved from 2145 from last admit. Continue home meds. - Atrial fibrillation (HCC) ? ? On eliquis. S/p pacemaker. Monitor on tele. - Pacemaker ? ? Had recent device interrogation 12/2017. - CAD (coronary artery disease) ? ? CABGx2 (DEBORAH-LAD, SVG-PDA ) in 2003 - Uncontrolled type 2 diabetes mellitus with stage 3 chronic kidney disease, with long-term current use of insulin (HCC) ? ? HbA1c: 12.0. Endocrinology saw pt during recent hospitalization. Continue recc lantus and humalog dosing. - Essential hypertension ? ? Stable, continue home meds. ? - Sleep apnea ? ? Wears CPAP at home, continue. VTE Prophylaxis: Patient is already anti-coagulated. Disposition: Home Plan of care discussed with: Patient and RN SIGNATURE: Peyman Guerrero MD PATIENT NAME: Luz Baca DATE: January 28, 2018 TIME: 1:13 PM PAGER/CONTACT #: [phone] PLAN OF CARE Observed: 01/28/2018 Status: COMPLETED Source: [place] 10:59 AM [facility] OTHER CAMPUS REPOSITORY HNO ID: [id number] Author: Shruti Nair Service: Endocrinology Author Type: Physician Type: Plan of Care Filed: 01/28/2018 11:06 AM Note Text: ENDOCRINOLOGY PLAN OF CARE Consult received - diabetes mgmt Case discussed with RN Patient know to our service from her recent hospitalization last week She was hyperglycemic on admission Patient received lantus 40 units last night BG improved overnight Will given lantus 30 units now Continue lantus 40 units q HS Continue humalog 12 units with meals Monitor accucheck AC/HS Formal consult to follow Shruti Nair MD 01/28/18 CBC Collected: 01/28/2018 Status: F Source: [place] 4:55 AM [facility] OTHER CAMPUS REPOSITORY TYPE CODE TESTS RESULT OUT OF REFERENCE UNITS RANGE LAB WBC 3.70-11.00 k/uL WBC 5.97 LAB RBC 3.90-5.20 m/uL RBC 3.91 LAB HGB 11.5-15.5 g/dL Hemoglobin 12.1 LAB HCT 36.0-46.0 % Hematocrit 38.1 LAB MCV 80.0-100.0 fL MCV 97.4 LAB MCH 26.0-34.0 pG MCH 30.9 LAB MCHC 30.5-36.0 g/dL MCHC 31.8 LAB RDWCV 11.5-15.0 % RDW-CV High 15.1 LAB PLTCT 150-400 k/uL Platelet Count 150 LAB MPV 9.0-12.7 fL MPV 9.8 Performed By: #### CBC, CMP #### [facility] [address] [place] [address] COMP METABOLIC PANEL Collected: 01/28/2018 Status: F Source: [place] 4:55 AM [facility] OTHER [place] REPOSITORY TYPE CODE TESTS RESULT OUT OF REFERENCE UNITS RANGE LAB TP 6.3-8.0 g/dL Protein, Total 6.3 LAB ALB 3.9-4.9 g/dL Low Albumin 3.4 LAB CA 8.5-10.2 mg/dL Calcium, Total 9.0 LAB TBIL 0.2-1.3 mg/dL Bilirubin, Total 0.5 LAB ALKP 32-117 U/L Alkaline Phosphatase 96 LAB AST 13-35 U/L AST 22 Result Comment: Results may be falsely increased due to interference by hemolysis. Suggest reorder as clinically indicated. LAB GLU 74-99 mg/dL High Glucose 208 Result Comment: The [place] [employer] (ADA) provides guidance for cutoff values for fasting glucose and random glucose. The ADA defines fasting as no caloric intake for at least 8 hours. Fas ting plasma glucose results between 100 to 125 mg/dL indicate increased risk for diabetes (prediabetes). Fasting plasma glucose results greater than or equal to 126 mg/dL meet the criteria for diagnosis of diabetes. In the absence of unequivocal hyperglycemia, results should be confirmed by repeat testing. In a patient with classic symptoms of hyperglycemia or hyperglycemic crisis, random plasma glucose results greater than or equal to 200 mg/dL meet the criteria for diagnosis of diabetes. Reference: Standards of Medical Care in Diabetes 2016, [place] [employer]. Diabetes Care. 2016.39(Suppl 1). LAB BUN 7-21 mg/dL BUN High 49 LAB CRET 0.58-0.96 mg/dL Creatinine High 1.64 LAB NA 136-144 mmol/L Sodium 141 LAB K 3.7-5.1 mmol/L Potassium 4.6 LAB CL 97-105 mmol/L Low Chloride 96 LAB CO2 22-30 mmol/L CO2 High 34 LAB AGAP 9-18 mmol/L Anion Gap 11 LAB ALT 7-38 U/L ALT 25 LAB GFRAA eGFR- Amer. 37 LAB GFRNAA . eGFR-All Other Races 30 Result Comment: eGFR (Estimated GFR) Units of measure: mL/min/1.73 meters squared eGFR is derived from the reexpressed MDRD Study equation using the following parameters: serum creatinine, age, gender and race. The creatinine assay has been calibrated to be traceable to IDMS. An eGFR <60 mL/min/1.73m2 for >3 months is consistent with chronic kidney disease. Refer to KDOQI guidelines for clinical interpretation. In patients with unstable renal function, e.g. those with acute kidney injury, the eGFR may not accurately reflect actual GFR. Performed By: #### CBC, CMP #### [facility] [address] [facility] [phone] TROPONIN T Collected: 01/28/2018 Status: F Source: [place] 4:55 AM [facility] REPOSITORY TYPE CODE TESTS RESULT OUT OF REFERENCE UNITS RANGE LAB TROPT 0.000-0.029 ng/mL High Troponin T 0.076 Result Comment: Urgent value previously called on 01/27/182227 Performed By: #### MARIN #### [facility] [address] [facility] [phone] NURSING PROG Observed: 01/27/2018 Status: COMPLETED Source: [place] 11:45 PM [facility] REPOSITORY HNO ID: [id number] Author: Nova (Rn) ALLYSON Aviles Service: (none) Author Type: Registered Nurse Type: Nursing Progress Note Filed: 01/28/2018 7:47 AM Note Text: Nursing Progress Note Patient Name: Luz Baca Patient Location: [id number] Daily Note:01/27/182014 Patient arrives to unit, admission completed, assessment completed. Medications reconciled. Patient educated on unit policies and procedures. 2123 Notified GORGE Aguillon of condition, orders placed. 2148 Troponin results, EKG completed, v paced rhythm results, see paper chart 0665 in with patient. Ok to hold HS PO lasix 80mg. IV lasix was giving in ED at 1900. Notified of troponin 0.059 and EKG. 01/27/18 0034 Humalog scale sliding ordered meals and HS by , notified of BG 478, ordered to follow scale, no additional Humalog needed besides 15 units. Offered CPAP for HS, refuses, refuses at home also. 0242 BG rechecked based on nursing judgement, 346 results. 0253 Page out to hospitalist to notify of BG. Awaiting call back. 0300 Page out to hospitalist, awaiting call back. 0320 Patient observed sleeping, no visible distress noted. Vpaced on tele, HR 62. 0343 Spoke with , continue to monitor BG. No new orders for additional coverage at this time, preventing drop in BG too quickly. 0456 EKG completed as ordered, see paper chart. 0515 Patient dangle, awake in bed, report mild CP, pressure like, 2/10 verbally, tolerable. 0700 Spoke with for consultation. Order to cut morning 60 units of Lantus to 30 units at 8 AM. Continue other insulin dosages as ordered. will see patient tomorrow. 0745 Page out to hospitalist notifying of repeat troponin 0.076. Awaiting any new orders for patient. Bedside report given to resident care assistant. This note was completed by: Nova Aviles RN PROGRESS Observed: 01/27/2018 Status: COMPLETED Source: [place] 10:51 PM [facility] REPOSITORY HNO ID: [id number] Author: Svetlana Colon (Pharmacist) Service: Pharmacy Author Type: Pharmacist Type: Progress Notes Filed: 01/27/2018 10:51 PM Note Text: CLINICAL PHARMACY Quality Measures PATIENT NAME: Luz Baca SERVICE DATE: 01/27/2018 TIME: 10:51 PM ACEI/ARB indication for Heart Failure/AMI Core Measures Review/Screening: LVEF = 50% from echocardiogram on 12/21/17. DAMION-I/ARB: No, patient's LVEF is greater than 40% SVETLANA COLON, PHARMD, [facility] PAGER / Extension: [phone] TROPONIN T Collected: 01/27/2018 Status: F Source: [place] 9:49 PM [facility] REPOSITORY TYPE CODE TESTS RESULT OUT OF REFERENCE UNITS RANGE LAB TROPT 0.000-0.029 ng/mL High Troponin T 0.059 Result Comment: Called to and read back by: Pete Kemp 01/27/18 Abelardo Mott Performed By: #### MARIN #### [facility] [address] [facility] [phone] BASIC METABOLIC PANL Collected: 01/27/2018 Status: F Source: [place] 9:49 PM CLINIC OTHER CAMPUS REPOSITORY TYPE CODE TESTS RESULT OUT OF REFERENCE UNITS RANGE LAB GLU 74-99 mg/dL High Glucose 507 Result Comment: The [place] [employer] Association (ADA) provides guidance for cutoff values for fasting glucose and random glucose. The ADA defines fasting as no caloric intake for at least 8 hours. Fas ting plasma glucose results between 100 to 125 mg/dL indicate increased risk for diabetes (prediabetes). Fasting plasma glucose results greater than or equal to 126 mg/dL meet the criteria for diagnosis of diabetes. In the absence of unequivocal hyperglycemia, results should be confirmed by repeat testing. In a patient with classic symptoms of hyperglycemia or hyperglycemic crisis, random plasma glucose results greater than or equal to 200 mg/dL meet the criteria for diagnosis of diabetes. Reference: Standards of Medical Care in Diabetes 2016, [place] [employer] Association. Diabetes Care. 2016.39(Suppl 1). Called to and read back by: Zan Aviles RN [address] 01/28/2018 0053 by Zan Shah. LAB BUN 7-21 mg/dL BUN High 49 LAB CRET 0.58-0.96 mg/dL Creatinine High 1.59 LAB NA 136-144 mmol/L Low Sodium 132 LAB K 3.7-5.1 mmol/L Potassium 5.0 LAB CL 97-105 mmol/L Low Chloride 89 LAB CO2 22-30 mmol/L CO2 27 LAB AGAP 9-18 mmol/L Anion Gap 16 LAB CA 8.5-10.2 mg/dL Calcium, Total 8.5 LAB GFRAA eGFR- Amer. 38 LAB GFRNAA . eGFR-All Other Races 32 Result Comment: eGFR (Estimated GFR) Units of measure: mL/min/1.73 meters squared eGFR is derived from the reexpressed MDRD Study equation using the following parameters: serum creatinine, age, gender and race. The creatinine assay has been calibrated to be traceable to IDMS. An eGFR <60 mL/min/1.73m2 for >3 months is consistent with chronic kidney disease. Refer to KDOQI guidelines for clinical interpretation. In patients with unstable renal function, e.g. those with acute kidney injury, the eGFR may not accurately reflect actual GFR. Performed By: #### JA, KIPB #### [facility] [address] [facility] [phone] B-HYDROXYBUTYRATE Collected: Status: F Source: [place] 01/27/2018 9:49 PM CLINIC OTHER CAMPUS REPOSITORY TYPE CODE TESTS RESULT OUT OF RANGE REFERENCE UNITS LAB BHBK <0.28 mmol/L 0.15 B-Hydroxybut yrate Performed By: #### BMP, BHB #### [facility] [address] [facility] [phone] HISTORY PHYSICAL Observed: 01/27/2018 Status: COMPLETED Source: [place] 8:22 PM CLINIC OTHER CAMPUS REPOSITORY HNO ID: [id number] Author: Gloria Singer Service: General Internal Medicine Author Type: Physician Type: HANDP Filed: 01/28/2018 5:31 AM Note Text: HOSPITAL MEDICINE HISTORY AND PHYSICAL EXAM PATIENT NAME: Luz Baca SERVICE DATE: 01/27/2018 SERVICE TIME: 8:23 PM Primary Care Physician: Jameson Kamara MD Attending Note I have personally performed a face to face assessment of the patient and have reviewed the MISSILEMAN note. My aguilera findings include: Patient admitted for recurrent chest pain,strong cardiac hx.stress test oct last year [place]. Hx of chronically elevated trops,EKG paced rhythm Has tenderness on chest palpation. Also has uncontrolled blood sugar readings -RBS 530 PLAN Agree with cardiology consult Adjusted insulin doses.Consult endocrinology. Continue current mgt Gloria Singer MD ? NIGHT COVERAGE Page [phone] for any questions between 5.30p-7.30a ASSESSMENT AND PLAN Active Hospital Problems Diagnosis - Chest pain in adult HS trop 55, repeat 56 which is similar to readings at previous admission likely from CKD. Pt had external stress test 07/2017: no evidence of ischemia. Cycle CE, monitor on tele. Cards consult. - Chronic combined systolic and diastolic CHF (congestive heart failure) (HCC) Pt was just hospitalized for CHF exacerbation from 01/20/18-01/23/18. BNP 1300 improved from 2145 from last admit. Continue home meds. - Atrial fibrillation (HCC) On eliquis. S/p pacemaker. Monitor on tele. - Pacemaker Had recent device interrogation 12/2017. - CAD (coronary artery disease) CABGx2 (DEBORAH-LAD, SVG-PDA ) in 2003 - Uncontrolled type 2 diabetes mellitus with stage 3 chronic kidney disease, with long-term current use of insulin ([facility]) HbA1c: 12.0. Endocrinology saw pt during recent hospitalization. Continue recc lantus and humalog dosing. - Essential hypertension Stable, continue home meds. - Sleep apnea Wears CPAP at home, continue. SUBJECTIVE CHIEF COMPLAINT: CP HPI: This is a 77 year old female with PMHx of HOCM s/p myectomy, chronic AF on eliquis, s/p pacemaker, CAD s/p multiple stents and CABG, CKD stage III, DMII, HTN, HLD, COPD (2L O2 continuous), who presents with CP that started around 5am today. Pain is intermitent and episodes last about 5 minutes, midsternal and around pacemaker without radiation, sharp and stabbing. Associated SOB worse than baseline. Denies n/v/d/f/c, diaphoresis. Pt was just hospitalized for CHF exacerbation from 01/20/18-01/23/18. HStrop 55, repeat 56 which is similar to readings at previous admission likely from CKD. BNP 1300 improved from 2145 from last admit. CKD: BUN 49, Cr 1.56 which is baseline. EKG paced rhythm. Pt had external stress test 07/2017: no evidence of ischemia. Pt had device interrogation last month. HbA1c: 12.0. Endocrinology saw pt during recent hospitalization. PAST MEDICAL HISTORY: PAST MEDICAL HISTORY Diagnosis Date - Arthritis - Atrial fibrillation ([facility]) - CAD (coronary artery disease) stents x9, defibrillator, CABG. Seeing Dr. Cardona - Cardiac defibrillator in place - Cardiomegaly - Carotid artery disease ([facility]) left - CKD (chronic kidney disease), stage IV ([facility]) Dr. Martin - COPD (chronic obstructive pulmonary disease) ([facility]) Dr. Cruz - Depression - Diabetes ([facility]) - Diabetic neuropathy ([facility]) - GERD (gastroesophageal reflux disease) - Gout - HH (hiatus hernia) - HH (hiatus hernia) - HOCM (hypertrophic obstructive cardiomyopathy) ([facility]) - HOCM (hypertrophic obstructive cardiomyopathy) ([facility]) S/P Septal Myectomy in 2003. Echo 09/23/10 shows no visable GABRIEL. LVOT gradient is 8mmHg. - HTN (hypertension) - Hyperlipidemia - Morbid obesity with BMI of 40.0-44.9, adult ([facility]) - Pacemaker - Pneumonia h/o pneumonia/bronchitis - Renal insufficiency 2003 post op - Sleep apnea 2012 not on CPAP, unable to tolerate mask 02/2017 - SVT (supraventricular tachycardia) (HCC) NSVT and questionable VT in 2003 post op PAST SURGICAL HISTORY: PAST SURGICAL HISTORY Procedure Laterality Date - PAST SURGICAL HISTORY OF 07/18/2004 Septal myectomy and CABG x2 (DEBORAH-LAD, SVG-PDA). - PAST SURGICAL HISTORY OF left breast nodule removed - PAST SURGICAL HISTORY OF hysterectomy - PAST SURGICAL HISTORY OF perianal abscess drained - PAST SURGICAL HISTORY OF cholecystectomy - PAST SURGICAL HISTORY OF skin lesions removed FAMILY HISTORY: FAMILY HISTORY Problem Relation Age of Onset - Hypertension Mother living at age 93, HTN - Heart Failure Mother [place] - Cancer Father age 71, lung cancer SOCIAL HISTORY: Social History Substance Use Topics - Smoking status: Former Smoker Packs/day: 2.50 Years: 43.00 Types: Cigarettes Start date: 1961 Quit date: 07/07/2004 - Smokeless tobacco: Never Used - Alcohol use No MEDICATIONS: Reviewed ALLERGIES: ALLERGIES Allergen Reactions - Aspirin Other: See Comments Patient states that she bled out every orifice, sts not allowed to take it at all. Patient states she was bleeding out of nose and mouth after one dose. - Bactrim [Sulfametho* Other: See Comments My throat swells up. - Latex Rash, Itching Itching and welts. No wheezing or shortness of breath. - Penicillins Rash, Itching Tolerated ceftriaxone during 11/2017 admission and cefepime during 12/2017 admission - Tetracycline Rash, GI Upset Emesis and diarrhea. - Atorvastatin Rash - Codeine Other: See Comments Numbness - Dilaudid [Hydromorp* Mental Status Change - Meperidine - Pentazocine - Pioglitazone Unknown - Propoxyphene REVIEW OF SYSTEM: PAIN ASSESSMENT: Negative for pain, history of chronic pain, or current treatment for a chronic pain condition. GENERAL: No weight loss, malaise or fevers. HEENT: Negative for frequent or significant headaches, No changes in hearing or vision, no nose bleeds or other nasal problems NECK: Negative for lumps, goiter, pain and significant neck swelling RESPIRATORY: Negative for cough, hemoptysis, wheezing or shortness of breath CARDIOVASCULAR: +chest pain. Negative for leg swelling or palpitations. GI: No nausea, vomiting, or diarrhea : No history of dysuria, frequency or incontinence. MUSCULOSKELETAL: Negative for joint pain or swelling, back pain or muscle pain. SKIN: Negative for lesions, rash, and itching. PSYCH: Negative for sleep disturbance, mood disorder and recent psychosocial stressors. HEMATOLOGY/LYMPHOLOGY: Negative for prolonged bleeding, bruising easily or swollen nodes. ENDOCRINE: Negative for cold or heat intolerance, polyuria, polydipsia and goiter. NEURO: No history of headaches, syncope, paralysis, seizures or tremors OBJECTIVE PHYSICAL EXAM: BP 128/72 Pulse 64 Temp (Src) 98.4 (Oral) Resp 20 Ht 5' 8 (1.73m) Wt 232 lb (105.2kg) SpO2 98% BMI 35.28 kg/(m2). GENERAL: alert, no distress, cooperative SKIN: Skin color, texture, turgor normal. No rashes or lesions. NECK: no jugulovenous distention, supple BACK: Back symmetric, Normal curvature, ROM normal, No CVAT. LUNGS: Lungs clear to auscultation. Good diaphragmatic excursion. CARDIAC: RRR; no rubs, murmurs, or gallops ABDOMEN: Abdomen soft, non-tender. BS normal. No masses or organomegaly. EXTREMITIES: Extremities normal. No deformities, edema, clubbing or skin discoloration., No ulcers NEURO: Sensation grossly intact., Cranial nerves II-XII intact DATA: Diagnostic tests reviewed for today's visit: Most recent labs Most recent imaging Most recent EKG CBC: WBC 7.63 01/27/2018 HEMOGLOBIN 12.1 01/27/2018 HEMATOCRIT 38.6 01/27/2018 PLATELETS 165 01/27/2018 CMP: Sodium 138 01/27/2018 Potassium 4.7 01/27/2018 BUN 49 01/27/2018 Creatinine 1.56 01/27/2018 Glucose 423 01/27/2018 Chloride 96 01/27/2018 CO2 Content, Venous 32 01/27/2018 VTE Prophylaxis: Patient is already anti-coagulated. Disposition: Home Plan of care discussed with: Patient and RN SIGNATURE: Raymond Rangel PA-C DATE: January 27, 2018 TIME: 8:23 PM CASE MGT INIT Observed: 01/27/2018 Status: COMPLETED Source: [facility] 7:10 PM CLINIC OTHER CAMPUS REPOSITORY HNO ID: [id number] Author: Jannette Agustin (Sw) Service: Care Management Author Type: Board Catcher Type: Care Mgt Initial Assessment Filed: 01/27/2018 7:50 PM Note Text: CARE MANAGEMENT: ASSESSMENT AND DISCHARGE PLAN SERVICE DATE: 01/27/2018 SERVICE TIME: 6:50 PM PRIMARY CARE PHYSICIAN: Jameson Kamara MD ADMISSION STATUS: Emergency Needs Prior to Discharge: To Be Determined MEDICAL: Patient/Home And School Visitor Stated Goals: To have reduction in symptoms To return home to life as it was Health Insurance: MEDICARE A AND B Health Issues Impacting Discharge Plan: afib,CHF, COPD, DM, HTN Last Admission Date: Previous admit date: 01/20/2018 Is this Within the Past 30 days? Yes Is This a Planned Readmission? No: Recurrent symptoms of underlying disease Followed Up with Appointment Prior to Admission: Appointment completed Where Did the Patient Come From? Home Intervention Taken to Avoid Future Readmission? Resume HHC, close f/u with PCP office Advance Directive: Current Advance Directive: Health Care Power of Top Precipitator Operator Helper In Chart: No (scanned to registration on 01/27) Up To Date and Valid: No (pt states POA paperwork at home [place] from [place] of [place], requests to complete udpated paperwork at this time) Group Work Program Aide Assisted with AD Completion: Yes Action: Patient Completed Advance Directive;Education Provided Health Literacy: 1. How often do you need to have someone help you when you read instructions, pamphlets, or other written material from your doctor or pharmacy? Sometimes - 3 2. How confident are you filling out medical forms by yourself? Somewhat - 3 If Patient scores > 3 on either question, the following interventions were put into place: dtr assists FUNCTIONAL AND COGNITIVE/BEHAVIORAL PRIOR TO ADMISSION: Baseline Mental Status: Alert AND Oriented, Person, Place , Time and Situation Functional Status: Needs Assistance Does Patient Currently Receive Any Community Services or Home Care? Home Health Care Agency: [facility]; ; Active. Equipment Prior to Admission: Bedside Commode Hospital Bed Oxygen 2.5 liters per minute Rollator Scooter Tub bench/chair Walker Has the Patient Been in a Snf Facility in the Past 30 days? No SOCIAL: Living Arrangement: Home Lives With: Daughter Financial Resources: Retired Primary Contact: Extended Emergency Contact Information Primary Emergency Contact: Octavia Soliman Address: [address] [place] [address] Mobile Relation: Daughter Supportive: Yes Other Important Patient Contacts: None Caregiver Assessment: Caregiver is ready, willing and able to meet the patient's needs as recommended by the inter-professional team? Yes Patient's transition needs and plan for meeting these needs: home with HHC and dtr to assist as needed Does the patient have an acute stroke diagnosis, or has the patient had a stroke during this admission? No Medication Adherence: I am convinced of the importance of my prescription medication: Agree completely - 0 I worry that my prescription medication will do more harm than good to me Disagree completely - 0 I feel financially burdened by my eka-ok-evymet expenses for my prescription medication: Disagree completely - 0 Patient is categorized as low risk < 2 Are you interested in bedside delivery of your medications? No Pt states preferred community pharmacy is [facility] Food Concerns: In the Last Month, Have You had Trouble Getting Food? No trouble getting food During the Last Month, Have You Worried Whether Your Food Would Run Out Before You Had Enough Money to Buy More? No Is the Patient Psychosocially Complex? No ASSESSMENT AND PLAN: Medical Needs: 2 or more chronic diseases and Respiratory Insufficiency - Oxygen Psychosocial Needs: None FREEDOM OF CHOICE EXPLAINED: Yes explained to pt and dtr Preference: resume services with [facility] POTENTIAL TRANSITION PLANS Home Retirement OT/PT Met with pt bedside, introduced self and role of case management. Pt's dtr present at bedside as well and participated in assessment with pt's permission. Pt states she plans to return home with her dtr at d/c, dtr confirms she is willing to continue assisting pt as needed post d/c. Pt is also active with [facility] and wishes to resume services, referral sent. Dtr states she will transport pt at d/c. Pt states she has needed equipment at home and needs some assist with ADL's, which dtr provides. Anticipate complex d/c needs, case management to remain available for d/c planning and assist as needed. SIGNATURE: YVES Tuttle PATIENT NAME: Luz Baca DATE: January 27, 2018 TIME: 7:10 PM PAGER/CONTACT #: [phone] ED NOTE Observed: 01/27/2018 Status: COMPLETED Source: [place] 7:05 PM CLINIC OTHER CAMPUS REPOSITORY HNO ID: [id number] Author: Aissatou (Rn) ALLYSON Paige Service: (none) Author Type: Registered Nurse Type: ED Notes Filed: 01/27/2018 7:05 PM Note Text: heads up given to floor PLAN OF CARE Observed: 01/27/2018 Status: COMPLETED Source: [place] 4:38 PM [facility] OTHER CAMPUS REPOSITORY HNO ID: [id number] Author: Herbert Marino (Pharmacist) Service: Pharmacy Author Type: Pharmacist Type: Plan of Care Filed: 01/27/2018 4:40 PM Note Text: MEDICATION HISTORY Patient Name:.Luz Baca : 1940 Source of history:Patient: Reliability of source: Appears reliable, clearly identified: Medication name, Medication dose, Medication route and Medication frequency, Family: Reliability of source: Appears reliable, clearly identified: Medication name, Medication dose, Medication route and Medication frequency and Pharmacy records: [facility] Medication Nonadherence Identified: No barriers noted The above information represents the best possible medication history: Yes Additional comments: ? Medications removed: ? Albuterol HFA ? Medications adjusted: ? Gabapentin - sig ? Medications added: ? None ? Allergy list modifications: ? None Allergies: ALLERGIES Allergen Reactions - Aspirin Other: See Comments Patient states that she bled out every orifice, sts not allowed to take it at all. Patient states she was bleeding out of nose and mouth after one dose. - Bactrim [Sulfametho* Other: See Comments My throat swells up. - Latex Rash, Itching Itching and welts. No wheezing or shortness of breath. - Penicillins Rash, Itching Tolerated ceftriaxone during 11/2017 admission and cefepime during 12/2017 admission - Tetracycline Rash, GI Upset Emesis and diarrhea. 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 01/27/2018 at 0800 Yes gabapentin (NEURONTIN) 300 mg capsule Take 600 mg by mouth twice daily. 01/27/2018 at 0800 Yes insulin aspart U-100 (NOVOLOG FLEXPEN U-100 INSULIN) 100 unit/mL inpn Inject 12 Units subcutaneously three times daily with meals. 01/27/2018 at Unknown time Yes insulin glargine (LANTUS SOLOSTAR U-100 INSULIN) 100 unit/mL (3 mL) inpn Inject 50 Units subcutaneously every morning. 01/27/2018 at 0800 Yes insulin glargine (LANTUS SOLOSTAR U-100 INSULIN) 100 unit/mL (3 mL) inpn Inject 36 Units subcutaneously daily at bedtime. 01/26/[address] (PROTONIX) 40 mg tablet Take 40 mg by mouth twice daily. 01/27/2018 at 0800 Yes potassium chloride (K-TAB) 10 mEq tablet Take 10 mEq by mouth daily with breakfast. 01/27/2018 at 0800 Yes bacitracin (ANTIBIOTIC, BACITRACIN ZINC,) ointment Apply 1 application to affected area twice daily. 01/27/2018 at Unknown time Yes nystatin (NYSTOP) powder Apply 1 application to affected area three times daily. Unknown at Unknown time Yes isosorbide mononitrate ER (IMDUR) 60 mg 24 hr tablet Take 1 tablet by mouth once daily. 01/27/2018 at 0800 Yes apixaban (ELIQUIS) 5 mg tab(s) Take 5 mg by mouth twice daily. 01/27/2018 at 0800 Yes simvastatin (ZOCOR) 40 mg tablet Take 40 mg by mouth every morning. 01/27/2018 at 0800 Yes spironolactone (ALDACTONE) 25 mg tablet Take 1 tablet by mouth once daily. 01/27/2018 at 0800 Yes ipratropium-albuterol (DUONEB) 0.5 mg-3 mg(2.5 mg base)/3 mL nebu Inhale 3 mL as instructed every 4 hours as needed. Unknown at Unknown time Yes guaiFENesin-dextromethorphan (ROBITUSSIN DM) 100-10 mg/5 mL syrup Take 5-10 mL by mouth every 6 hours as needed for Cough. Unknown at Unknown time Yes nitroglycerin sublingual (NITROQUICK) 0.4 mg SL tablet Dissolve 1 tablet under the tongue every 5 minutes as needed. Unknown at Unknown time Yes OXYGEN, HOME THERAPY, Inhale 2.5 L/min as instructed continuous. 3 L/min when leaves home. Unknown at Unknown time Yes HERBERT MARINO, PHARMACIST January 27, 2018 4:38 PM HIGH SENS TROPONIN T Collected: 01/27/2018 Status: F Source: [place] 4:24 PM [facility] TYPE CODE TESTS RESULT OUT OF REFERENCE UNITS RANGE LAB HSTN <12 ng/L High High Sensitivity MARIN 56 Result Comment: When assessing risk for acute coronary syndromes: In patients undergoing blood draw greater than or equal to 2 hours from symptom onset, with history of very low to moderate risk and non -ischemic ECG, an initial hs-Troponin T less than 12 ng/L AND a 1 hour delta hs- Troponin T less than 3 ng/L should be considered very low risk for 30 day MACE. Urgent value previously called [id number] Edwin Performed By: #### HSTNT #### [facility] [address] [facility] [phone] ED NOTE Observed: 01/27/2018 Status: COMPLETED Source: [place] 4:19 PM [facility] REPOSITORY HNO ID: [id number] Author: Annabel (Rn) Mina Foster RN Service: (none) Author Type: Registered Nurse Type: ED Notes Filed: 01/27/2018 4:20 PM Note Text: Patient has an ID Band on , has an Allergy Band on, is in the bed/cart with Side Rails up x2, has the Call Bear within reach and has Fall Risk Band on. XR CHEST 1V FRONTAL Observed: 01/27/2018 Status: F Source: [facility] 4:03 PM [facility] REPOSITORY * * *Final Report* * * DATE OF EXAM: Jan 27 2018 4:03PM MDX [id number] - XR CHEST 1V FRONTAL PORT / PROCEDURE REASON: Dyspnea--Chest pain * * * * Physician Interpretation * * * * EXAMINATION: CHEST RADIOGRAPH (PORTABLE SINGLE VIEW AP) Exam Date/Time: 01/27/2018 4:03 PM Clinical History: Dyspnea--Chest pain M: XCP_4 Comparison: 01/26/2018 RESULT: IMPRESSION: 1. Lines, Tubes, and Devices: None 2. Lungs and Pleura: Left lower lung field again difficult to evaluate due to the size of the heart. There is be some persistence of prominent lung markings which could represent atelectasis scarring and/or infiltrate. 3. Cardiomediastinal silhouette: Moderate cardiomegaly noted. Pulmonary vascularity is unremarkable. 4. Other: Bony structures unremarkable. Service Delivery Supervisor: SALINAS Transcribe Date/Time: Jan 27 2018 4:25P Dictated by : ELLA FRY DO This examination was interpreted and the report reviewed and electronically signed by: ELLA FRY DO on Jan 27 2018 4:29PM EST [id number] ED NOTE Observed: 01/27/2018 Status: COMPLETED Source: [place] 3:23 PM CLINIC OTHER CAMPUS REPOSITORY HNO ID: [id number] Author: Speedy (Rn) ALLYSON Victoria Service: (none) Author Type: Registered Nurse Type: ED Notes Filed: 01/27/2018 3:23 PM Note Text: Patient ambulated to bathroom with daughter CBC AND DIFFERENTIAL Collected: 01/27/2018 Status: F Source: [place] 3:15 PM CLINIC OTHER CAMPUS REPOSITORY TYPE CODE TESTS RESULT OUT OF REFERENCE UNITS RANGE LAB WBC 3.70-11.00 k/uL WBC 7.63 LAB RBC 3.90-5.20 m/uL RBC 3.93 LAB HGB 11.5-15.5 g/dL Hemoglobin 12.1 LAB HCT 36.0-46.0 % Hematocrit 38.6 LAB MCV 80.0-100.0 fL MCV 98.2 LAB MCH 26.0-34.0 pG MCH 30.8 LAB MCHC 30.5-36.0 g/dL MCHC 31.3 LAB RDWCV 11.5-15.0 % RDW-CV High 15.3 LAB PLTCT 150-400 k/uL Platelet Count 165 LAB MPV 9.0-12.7 fL MPV 9.7 LAB ANEUT % Neut% 70.0 LAB AANEUT 1.45-7.50 k/uL Abs Neut 5.34 LAB ALYMP % Lymph% 19.0 LAB AALYMP 1.00-4.00 k/uL Abs Lymph 1.45 LAB AMONO % Stoddard% 9.4 LAB AAMONO <0.87 k/uL Abs Stoddard 0.72 LAB AEOS % Eosin% 1.2 LAB AAEOS <0.46 k/uL Abs Eosin 0.09 LAB ABASO % Baso% 0.4 LAB AABASO <0.11 k/uL Abs Baso 0.03 Performed By: #### CBCDIF, PT, PTT, CMP, LIPA, MG1 #### [facility] [address] [place] [address] PROTIME Collected: 01/27/2018 Status: F Source: [place] 3:15 PM [facility] OTHER [place] REPOSITORY TYPE CODE TESTS RESULT OUT OF RANGE REFERENCE UNITS LAB PSEC 9.7-13.0 sec PT Sec 10.1 LAB INR 0.9-1.3 PT INR 1.0 Result Comment: Vitamin K Antagonist (VKA) Therapeutic Range: INR 2 to 3 (Target INR of 2.5) Note: For patients treated with VKA drugs, such as warfarin, the [employer] 2012 Guideline recommends a therapeutic INR range of 2 to 3 (target INR of 2.5). This recommendation includes high-risk patients with antiphospholipid syndrome with previous arterial or venous thromboembolism, current-generation mechanical or bioprosthetic aortic heart valve replacement. Note: Patients with mechanical aortic valve replacement and additional risk factors for thromboembolic events (atrial fibrillation, previous thromboembolism, LV dysfunction, hypercoagulable conditions) or an older generation mechanical AVR (i.e., ball in-Cage) or any mechanical MVR should have a INR therapeutic range of 2.5 to 3.5 (target INR of 3). Stella GH, et al. Chest 2012, 141:7S-47S Jose R RA, et al. [facility] 2017, 70: 252-289 Performed By: #### CBCDIF, PT, PTT, CMP, LIPA, MG1 #### [facility] [address] [place] [address] APTT Collected: 01/27/2018 Status: F Source: [place] 3:15 PM [facility] OTHER [place] REPOSITORY TYPE CODE TESTS RESULT OUT OF RANGE REFERENCE UNITS LAB APTT 23.0-32.4 sec APTT 25.0 Result Comment: Unfractionated Heparin Therapeutic Ranges: Standard Heparin Nomogram: 53 to 78 seconds (anti-Xa level of 0.3 to 0.7 U/ml) Low Dose/ACS Nomogram: 49 to 67 seconds (anti-Xa level of 0.2 to 0.5 U/ml) Stroke Treatment Nomogram: 49 to 67 seconds (anti-Xa level of 0.2 to 0.5 U/ml) Note: The APTT therapeutic range has been determined for the current lot of laboratory APTT reagent in use throughout the [facility]. Performed By: #### CBCDIF, PT, PTT, CMP, LIPA, MG1 #### [facility] [address] [facility] [phone] COMP METABOLIC PANEL Collected: 01/27/2018 Status: F Source: [place] 3:15 PM CLINIC OTHER CAMPUS REPOSITORY TYPE CODE TESTS RESULT OUT OF REFERENCE UNITS RANGE LAB TP 6.3-8.0 g/dL Protein, Total 6.6 LAB ALB 3.9-4.9 g/dL Low Albumin 3.3 LAB CA 8.5-10.2 mg/dL Calcium, Total 8.6 LAB TBIL 0.2-1.3 mg/dL Bilirubin, Total 0.4 LAB ALKP 32-117 U/L Alkaline Phosphatase 105 LAB AST 13-35 U/L AST 19 LAB GLU 74-99 mg/dL Glucose High 423 Result Comment: The [place] [employer] (ADA) provides guidance for cutoff values for fasting glucose and random glucose. The ADA defines fasting as no caloric intake for at least 8 hours. Fas ting plasma glucose results between 100 to 125 mg/dL indicate increased risk for diabetes (prediabetes). Fasting plasma glucose results greater than or equal to 126 mg/dL meet the criteria for diagnosis of diabetes. In the absence of unequivocal hyperglycemia, results should be confirmed by repeat testing. In a patient with classic symptoms of hyperglycemia or hyperglycemic crisis, random plasma glucose results greater than or equal to 200 mg/dL meet the criteria for diagnosis of diabetes. Reference: Standards of Medical Care in Diabetes 2016, [place] [employer]. Diabetes Care. 2016.39(Suppl 1). LAB BUN 7-21 mg/dL BUN High 49 LAB CRET 0.58-0.96 mg/dL Creatinine High 1.56 LAB NA 136-144 mmol/L Sodium 138 LAB K 3.7-5.1 mmol/L Potassium 4.7 LAB CL 97-105 mmol/L Low Chloride 96 LAB CO2 22-30 mmol/L CO2 High 32 LAB AGAP 9-18 mmol/L Anion Gap 10 LAB ALT 7-38 U/L ALT 26 LAB GFRAA eGFR- Amer. 39 LAB GFRNAA . eGFR-All Other Races 32 Result Comment: eGFR (Estimated GFR) Units of measure: mL/min/1.73 meters squared eGFR is derived from the reexpressed MDRD Study equation using the following parameters: serum creatinine, age, gender and race. The creatinine assay has been calibrated to be traceable to IDMS. An eGFR <60 mL/min/1.73m2 for >3 months is consistent with chronic kidney disease. Refer to KDOQI guidelines for clinical interpretation. In patients with unstable renal function, e.g. those with acute kidney injury, the eGFR may not accurately reflect actual GFR. Performed By: #### CBCDIF, PT, PTT, CMP, LIPA, MG1 #### [facility] [address] [place], [place] [id number] LIPASE Collected: 01/27/2018 Status: F Source: [place] 3:15 PM [facility] OTHER [place] REPOSITORY TYPE CODE TESTS RESULT OUT OF REFERENCE UNITS RANGE LAB LIPA 16-61 U/L High Lipase 80 Performed By: #### CBCDIF, PT, PTT, CMP, LIPA, MG1 #### [facility] [address] [place], [place] [id number] MAGNESIUM Collected: 01/27/2018 Status: F Source: [place] 3:15 PM [facility] OTHER [place] REPOSITORY TYPE CODE TESTS RESULT OUT OF REFERENCE UNITS RANGE LAB MG 1.7-2.3 mg/dL Magnesium 2.1 Performed By: #### CBCDIF, PT, PTT, CMP, LIPA, MG1 #### [facility] [address] [place], [place] [id number] NT PRO BNP Collected: 01/27/2018 Status: F Source: [place] 3:15 PM [facility] OTHER [place] REPOSITORY TYPE CODE TESTS RESULT OUT OF REFERENCE UNITS RANGE LAB PBNP <450 pg/mL High PRO B Natr 1303 Peptide Performed By: #### NTBNP, CKCKMB #### [facility] [address] [place], [place] [id number] CK, TOTAL AND CKMB Collected: 01/27/2018 Status: F Source: [place] 3:15 PM [facility] OTHER CAMPUS REPOSITORY TYPE CODE TESTS RESULT OUT OF REFERENCE UNITS RANGE LAB CK 42-196 U/L 49 CK LAB MB <4.3 ng/mL High MB 5.8 LAB CKMBRI 0.0-4.0 % CK CK MB MB % not % reported with CK <100 U/L. Performed By: #### NTBNP, CKCKMB #### [facility] [address] [facility] [phone] HIGH SENS TROPONIN T Collected: 01/27/2018 Status: F Source: [place] 3:15 PM [facility] REPOSITORY TYPE CODE TESTS RESULT OUT OF REFERENCE UNITS RANGE LAB HSTN <12 ng/L High High Sensitivity MARIN 55 Result Comment: When assessing risk for acute coronary syndromes: In patients undergoing blood draw greater than or equal to 2 hours from symptom onset, with history of very low to moderate risk and non -ischemic ECG, an initial hs-Troponin T less than 12 ng/L AND a 1 hour delta hs- Troponin T less than 3 ng/L should be considered very low risk for 30 day MACE. Called to and read back by: Vimal Felton [facility] 01/27/2018 Yonis Presley Performed By: #### HSTNT #### [facility] [address] [facility] [phone] ED PROV NOTE Observed: 01/27/2018 Status: COMPLETED Source: [place] 3:08 PM [facility] REPOSITORY HNO ID: [id number] Author: Jameson Hernandez DO Service: Emergency Medicine Author Type: Physician Type: ED Provider Notes Filed: 01/27/2018 6:18 PM Note Text: ED Provider Note Patient Name: Luz Baca SERVICE DATE: 01/27/18 History Patient presents with: Chest Pain HPI Comments: 77-year-old female past medical history of HOCM status post reported myomectomy CAD status post multiple stents and bypass hypertension hyperlipidemia COPD on 2 L nasal cannula continuously atrial fibrillation on eliquis post pacemaker/to vaguely replacement presents with chest pain. Onset was 5:00 this morning. It is intermittent in nature described as sharp stabbing and fluttering. It is midsternal. It lasts 5 minutes before resolving. Denies lightheadedness dizziness nausea or vomiting. She does report mild dyspnea above baseline. No new lower extremity edema. She does report intermittent diaphoresis throughout the day today. History provided by: Patient student counselor used: No PAST MEDICAL HISTORY Diagnosis Date - Arthritis - Atrial fibrillation (HCC) - CAD (coronary artery disease) stents x9, defibrillator, CABG. Seeing Dr. Cardona - Cardiac defibrillator in place - Cardiomegaly - Carotid artery disease (HCC) left - CKD (chronic kidney disease), stage IV ([facility]) Dr. Martin - COPD (chronic obstructive pulmonary disease) ([facility]) Dr. Cruz - Depression - Diabetes ([facility]) - Diabetic neuropathy ([facility]) - GERD (gastroesophageal reflux disease) - Gout - HH (hiatus hernia) - HH (hiatus hernia) - HOCM (hypertrophic obstructive cardiomyopathy) ([facility]) - HOCM (hypertrophic obstructive cardiomyopathy) ([facility]) S/P Septal Myectomy in 2003. Echo 09/23/10 shows no visable GABRIEL. LVOT gradient is 8mmHg. - HTN (hypertension) - Hyperlipidemia - Morbid obesity with BMI of 40.0-44.9, adult ([facility]) - Pacemaker - Pneumonia h/o pneumonia/bronchitis - Renal insufficiency 2003 post op - Sleep apnea 2011 not on CPAP, unable to tolerate mask 02/2017 - SVT (supraventricular tachycardia) ([facility]) NSVT and questionable VT in 2003 post op PAST SURGICAL HISTORY Procedure Laterality Date - PAST SURGICAL HISTORY OF 07/18/2004 Septal myectomy and CABG x2 (DEBORAH-LAD, SVG-PDA). - PAST SURGICAL HISTORY OF left breast nodule removed - PAST SURGICAL HISTORY OF hysterectomy - PAST SURGICAL HISTORY OF perianal abscess drained - PAST SURGICAL HISTORY OF cholecystectomy - PAST SURGICAL HISTORY OF skin lesions removed FAMILY HISTORY Problem Relation Age of Onset - Hypertension Mother living at age 93, HTN - Heart Failure Mother [place] - Cancer Father age 71, lung cancer Social History Social History Main Topics - Smoking status: Former Smoker Packs/day: 2.50 Years: 43.00 Types: Cigarettes Start date: 1961 Quit date: 07/07/2004 - Smokeless tobacco: Never Used - Alcohol use No - Drug use: No - Sexual activity: Not Asked ALLERGIES Allergen Reactions - Aspirin Anaphylaxis sts that she bled out every orifice, sts not allowed to take it at all. - Bactrim [Sulfametho* Other: See Comments My throat swells up. - Latex Rash, Itching Itching and welts. No wheezing or shortness of breath. - Penicillins Rash, Itching Tolerated ceftriaxone during 11/2017 admission and cefepime during 12/2017 admission - Tetracycline Rash, GI Upset Emesis and diarrhea. - Atorvastatin Rash - Codeine Other: See Comments Numbness - Dilaudid [Hydromorp* Mental Status Change - Meperidine - Pentazocine - Pioglitazone Unknown - Propoxyphene Review of Systems Constitutional: Positive for diaphoresis. HENT: Negative. Eyes: Negative. Respiratory: Positive for shortness of breath. Cardiovascular: Positive for chest pain. Gastrointestinal: Negative. Genitourinary: Negative. Musculoskeletal: Negative. Skin: Negative. Neurological: Negative. Psychiatric/Behavioral: Negative. Physical Exam BP 123/53 Pulse 62 Temp (Src) 98.4 (Oral) Resp 19 Ht 5' 8 (1.73m) Wt 232 lb (105.2kg) SpO2 93% BMI 35.28 kg/(m2). Physical Exam Constitutional: She is oriented to person, place, and time. She appears well-developed and well-nourished. HENT: Head: Normocephalic and atraumatic. Mouth/Throat: Oropharynx is clear and moist. No oropharyngeal exudate. Eyes: Conjunctivae and EOM are normal. Pupils are equal, round, and reactive to light. No scleral icterus. Neck: Normal range of motion. Neck supple. Cardiovascular: Normal rate, regular rhythm, normal heart sounds and intact distal pulses. Exam reveals no gallop and no friction rub. No murmur heard. Pulmonary/Chest: Effort normal. No respiratory distress. She has no wheezes. She has rales. She exhibits no tenderness. Abdominal: Soft. Bowel sounds are normal. She exhibits no distension and no mass. There is no tenderness. There is no rebound and no guarding. Musculoskeletal: Normal range of motion. She exhibits no edema or tenderness. Lymphadenopathy: She has no cervical adenopathy. Neurological: She is alert and oriented to person, place, and time. No cranial nerve deficit. Skin: Skin is warm and dry. No rash noted. No erythema. Psychiatric: She has a normal mood and affect. Her behavior is normal. Nursing note and vitals reviewed. Diagnostic Testing ED Labs Ordered and Reviewed - No data to display BNP 1303 EKG ordered and interpreted as ventricular paced rhythm rate of 60 ED imaging studies ordered and reviewed Chest x-ray with moderate cardiomegaly Procedures Medical Decision Making / ED Course IV started Nursing notes and vital signs reviewed Triage note reviewed Placed on cafeteria monitor Placed on supplemental O2 Medications administered aspirin Consultation obtained supervisor porcelain department Dr. Yeung Consultation recommendations observation admission Discussed with admitting hospital as Dr. Singer - agreeable to admission ED Course Stable upon arrival. Pulse ox 93% placed on 2 L nasal cannula with good effect. EKG shows paced rhythm. Treated with aspirin upon arrival. Blood work shows high sensitivity troponin at 55 which appears to be chronic possibly secondary to CK D with second set 56. Chronic kidney disease noted. BNP elevated at 1300. Chest x-ray with cardiomegaly with questionable vascular prominence. Patient remained pain-free in the emergency department. Discussed with supervisor porcelain department as noted above, recommends observation admission, no indication for transfer to higher level facility at this time. Discussed with admitting hospitalist who is agreeable to admission. Encounter Diagnosis ICD-10-CM 1. Chest pain, unspecified type R07.9 2. Dyspnea, unspecified type R06.00 Plan The Patient was ADMITTED TO: Regular nursing floor. Case discussed with admitting physician, Dr. Singer. Condition at time of disposition: stable SIGNATURE: DO Jameson Cunha DO 01/27/18 1818 ED NOTE Observed: 01/27/2018 Status: COMPLETED Source: [place] 2:47 PM CLINIC OTHER [place] REPOSITORY HNO ID: [id number] Author: Anna (Rn) ALLYSON Valencia Service: (none) Author Type: Registered Nurse Type: ED Notes Filed: 01/27/2018 2:48 PM Note Text: Patient sent over by physician for chest pain which started yesterday. HOSP Observed: 01/27/2018 Status: COMPLETED Source: [place] 12:00 AM [facility] REPOSITORY Patient:Luz Baca MRN: <[id number]> Height:5' 8(1.727 m) Weight:256 lb 6.4 oz (116.302 kg) Outpatient Medications as of 02/15/18: furosemide (LASIX) 40 mg tablet gabapentin (NEURONTIN) 300 mg capsule insulin aspart U-100 (NOVOLOG FLEXPEN U-100 INSULIN) 100 unit/mL inpn insulin glargine (LANTUS SOLOSTAR U-100 INSULIN) 100 unit/mL (3 mL) inpn insulin glargine (LANTUS SOLOSTAR U-100 INSULIN) 100 unit/mL (3 mL) inpn pantoprazole DR (PROTONIX) 40 mg tablet potassium chloride (K-TAB) 10 mEq tablet bacitracin (ANTIBIOTIC, BACITRACIN ZINC,) ointment nystatin (NYSTOP) powder isosorbide mononitrate ER (IMDUR) 60 mg 24 hr tablet apixaban (ELIQUIS) 5 mg tab(s) simvastatin (ZOCOR) 40 mg tablet spironolactone (ALDACTONE) 25 mg tablet ipratropium-albuterol (DUONEB) 0.5 mg-3 mg(2.5 mg base)/3 mL nebu guaiFENesin-dextromethorphan (ROBITUSSIN DM) 100-10 mg/5 mL syrup nitroglycerin sublingual (NITROQUICK) 0.4 mg SL tablet gabapentin (NEURONTIN) 300 mg capsule OXYGEN, HOME THERAPY, Admission/Clinic Administered Medications as of 02/15/18: torsemide 50 mg tab(s) (DEMADEX) dextrose 5% in water iv infusion insulin glargine 30 Units injection (long acting) (LANTUS) traMADol 50 mg tab(s) (ULTRAM) HYDROcodone 5 mg - acetaminophen 325 mg tablet (NORCO) hydrocortisone 0.5 % cream ipratropium-albuterol 3 mL nebulizer solution (DUONEB) insulin lispro 12 Units injection (rapid acting) (HumaLOG) insulin glargine 15 Units injection (long acting) (LANTUS) LORazepam 1 mg injection (ATIVAN) insulin lispro injection (rapid acting) (HumaLOG) amiodarone 200 mg tab(s) (PACERONE) melatonin 3 mg tab(s) simvastatin 20 mg tab(s) (ZOCOR) aluminum-magnesium hydroxide-simethicone 200-200-20 mg/5 mL 15 mL (MAALOX,MYLANTA,MAG-AL PLUS) insulin lispro injection (rapid acting) (HumaLOG) carvedilol 3.125 mg tab(s) (COREG) cholecalciferol 1,000 Units tab(s) (VITAMIN D3) allopurinol 100 mg tab(s) (ZYLOPRIM) docusate sodium 100 mg cap(s) (COLACE) polyethylene glycol 3350 17 g packet (MIRALAX, GLYCOLAX) bisacodyl 10 mg suppository (DULCOLAX) sodium chloride 0.65 % 2 Parker (AYR, OCEAN) gabapentin 200 mg cap(s) (NEURONTIN) ondansetron orally disintegrating 4 mg tab(s) (ZOFRAN ODT) acetaminophen 650 mg tab(s) (TYLENOL) pantoprazole DR 40 mg tab(s) (PROTONIX) bacitracin 1 application topical ointment isosorbide mononitrate ER 60 mg tab(s) (IMDUR) 0.9% NaCl 3-5 mL dextrose 40 % 15 g glucagon 1 mg injection (GLUCAGEN) dextrose 50% in water 25 mL syringe miconazole 2 % 1 application topical powder (LOTRIMIN AF, DESENEX) Problem List: CAD (coronary artery disease) [I25.10] Hypertension [I10] Hyperlipidemia [E78.5] COPD (chronic obstructive pulmonary disease) ([facility]) [J44.9] Sleep apnea [G47.30] GERD (gastroesophageal reflux disease) [K21.9] Arthritis [M19.90] Depression [F32.9] Atrial fibrillation ([facility]) [I48.91] Uncontrolled type 2 diabetes mellitus with stage 3 chronic kidney disease, with long-term current use of insulin ([facility]) [E11.22, E11.65, N18.3, Z79.4] Obesity [E66.09] Gout [M10.9] Pacemaker [Z95.0] Chronic combined systolic and diastolic CHF (congestive heart failure) ([facility]) [I50.42] Pulmonary hypertension [I27.20] Hyponatremia [E87.1] Acute renal failure superimposed on stage 3 chronic kidney disease ([facility]) [N17.9, N18.3] Allergies: Aspirin Bactrim [Sulfamethoxazole-Trimethoprim] Latex Penicillins Tetracycline Atorvastatin Codeine Dilaudid [Hydromorphone (Bulk)] Meperidine Pentazocine Pioglitazone Propoxyphene Date Verified: 02/14/18 Lab Values Lab Value Units Date High Low POTA* 5.0 mmol/L 02/15/2018 5.1 3.7 STAR* 37.0 % 02/15/2018 46.0 36.0 Progress Notes ([facility]): Gloria Maya Ma 01/28/2018 10:06 AM Signed ----- Message from Jameson Adams) Koffi sent at 01/28/2018 8:08 AM EDT ----- CXR shows prominence in left lung base. Possible infection vs scarring vs air trapping. Gloria Maya Ma 01/28/2018 10:07 AM Signed ----- Message from Jameson Kamara sent at 01/27/2018 7:57 AM EDT ----- No sign of infection or anemia. Elevated magnesium without supplementation. Stable renal function with elevated glucose. BNP elevated, but improved compared to 7 days ago. Recommend continuing increased dose of lasix. Please print labs and fax to food and beverage operations manager Dr. Martin for their review and recommendations. Sean Han Ma 01/28/2018 10:43 AM Signed Unable to reach patient/daughter. No option to LM . Will try at a later time. Labs faxed to Dr. Martin' office. Jhon Botello RN 01/28/2018 11:01 AM Signed Daughter returned call and given provider's message below with verbalized understanding. Daughter reports patient was admitted to [facility] yesterday. Jameson Kamara MD 01/28/2018 11:22 AM Signed Reviewed. Progress Notes (): Anna Valencia, RN, RN 01/27/2018 2:48 PM Signed Patient sent over by physician for chest pain which started yesterday. Jameson Hernandez DO, 01/27/2018 6:18 PM Signed ED Provider Note Patient Name: Luz Baca SERVICE DATE: 01/27/18 History Patient presents with: Chest Pain HPI Comments: 77-year-old female past medical history of HOCM status post reported myomectomy CAD status post multiple stents and bypass hypertension hyperlipidemia COPD on 2 L nasal cannula continuously atrial fibrillation on eliquis post pacemaker/to vaguely replacement presents with chest pain. Onset was 5:00 this morning. It is intermittent in nature described as sharp stabbing and fluttering. It is midsternal. It lasts 5 minutes before resolving. Denies lightheadedness dizziness nausea or vomiting. She does report mild dyspnea above baseline. No new lower extremity edema. She does report intermittent diaphoresis throughout the day today. History provided by: Patient student counselor used: No PAST MEDICAL HISTORY Diagnosis Date - Arthritis - Atrial fibrillation (HCC) - CAD (coronary artery disease) stents x9, defibrillator, CABG. Seeing Dr. Cardona - Cardiac defibrillator in place - Cardiomegaly - Carotid artery disease ([facility]) left - CKD (chronic kidney disease), stage IV ([facility]) Dr. Martin - COPD (chronic obstructive pulmonary disease) ([facility]) Dr. Cruz - Depression - Diabetes ([facility]) - Diabetic neuropathy ([facility]) - GERD (gastroesophageal reflux disease) - Gout - HH (hiatus hernia) - HH (hiatus hernia) - HOCM (hypertrophic obstructive cardiomyopathy) ([facility]) - HOCM (hypertrophic obstructive cardiomyopathy) ([facility]) S/P Septal Myectomy in 2003. Echo 09/23/10 shows no visable GABRIEL. LVOT gradient is 8mmHg. - HTN (hypertension) - Hyperlipidemia - Morbid obesity with BMI of 40.0-44.9, adult ([facility]) - Pacemaker - Pneumonia h/o pneumonia/bronchitis - Renal insufficiency 2003 post op - Sleep apnea 2011 not on CPAP, unable to tolerate mask 02/2017 - SVT (supraventricular tachycardia) ([facility]) NSVT and questionable VT in 2003 post op PAST SURGICAL HISTORY Procedure Laterality Date - PAST SURGICAL HISTORY OF 07/18/2004 Septal myectomy and CABG x2 (DEBORAH-LAD, SVG-PDA). - PAST SURGICAL HISTORY OF left breast nodule removed - PAST SURGICAL HISTORY OF hysterectomy - PAST SURGICAL HISTORY OF perianal abscess drained - PAST SURGICAL HISTORY OF cholecystectomy - PAST SURGICAL HISTORY OF skin lesions removed FAMILY HISTORY Problem Relation Age of Onset - Hypertension Mother living at age 93, HTN - Heart Failure Mother [place] - Cancer Father age 71, lung cancer Social History Social History Main Topics - Smoking status: Former Smoker Packs/day: 2.50 Years: 43.00 Types: Cigarettes Start date: 1961 Quit date: 07/07/2004 - Smokeless tobacco: Never Used - Alcohol use No - Drug use: No - Sexual activity: Not Asked ALLERGIES Allergen Reactions - Aspirin Anaphylaxis sts that she bled out every orifice, sts not allowed to take it at all. - Bactrim [Sulfametho* Other: See Comments My throat swells up. - Latex Rash, Itching Itching and welts. No wheezing or shortness of breath. - Penicillins Rash, Itching Tolerated ceftriaxone during 11/2017 admission and cefepime during 12/2017 admission - Tetracycline Rash, GI Upset Emesis and diarrhea. - Atorvastatin Rash - Codeine Other: See Comments Numbness - Dilaudid [Hydromorp* Mental Status Change - Meperidine - Pentazocine - Pioglitazone Unknown - Propoxyphene Review of Systems Constitutional: Positive for diaphoresis. HENT: Negative. Eyes: Negative. Respiratory: Positive for shortness of breath. Cardiovascular: Positive for chest pain. Gastrointestinal: Negative. Genitourinary: Negative. Musculoskeletal: Negative. Skin: Negative. Neurological: Negative. Psychiatric/Behavioral: Negative. Physical Exam BP 123/53 Pulse 62 Temp (Src) 98.4 (Oral) Resp 19 Ht 5' 8 (1.73m) Wt 232 lb (105.2kg) SpO2 93% BMI 35.28 kg/(m2). Physical Exam Constitutional: She is oriented to person, place, and time. She appears well-developed and well-nourished. HENT: Head: Normocephalic and atraumatic. Mouth/Throat: Oropharynx is clear and moist. No oropharyngeal exudate. Eyes: Conjunctivae and EOM are normal. Pupils are equal, round, and reactive to light. No scleral icterus. Neck: Normal range of motion. Neck supple. Cardiovascular: Normal rate, regular rhythm, normal heart sounds and intact distal pulses. Exam reveals no gallop and no friction rub. No murmur heard. Pulmonary/Chest: Effort normal. No respiratory distress. She has no wheezes. She has rales. She exhibits no tenderness. Abdominal: Soft. Bowel sounds are normal. She exhibits no distension and no mass. There is no tenderness. There is no rebound and no guarding. Musculoskeletal: Normal range of motion. She exhibits no edema or tenderness. Lymphadenopathy: She has no cervical adenopathy. Neurological: She is alert and oriented to person, place, and time. No cranial nerve deficit. Skin: Skin is warm and dry. No rash noted. No erythema. Psychiatric: She has a normal mood and affect. Her behavior is normal. Nursing note and vitals reviewed. Diagnostic Testing ED Labs Ordered and Reviewed - No data to display BNP 1303 EKG ordered and interpreted as ventricular paced rhythm rate of 60 ED imaging studies ordered and reviewed Chest x-ray with moderate cardiomegaly Procedures Medical Decision Making / ED Course IV started Nursing notes and vital signs reviewed Triage note reviewed Placed on cafeteria monitor Placed on supplemental O2 Medications administered aspirin Consultation obtained supervisor porcelain department Dr. Yeung Consultation recommendations observation admission Discussed with admitting hospital as Dr. Singer - agreeable to admission ED Course Stable upon arrival. Pulse ox 93% placed on 2 L nasal cannula with good effect. EKG shows paced rhythm. Treated with aspirin upon arrival. Blood work shows high sensitivity troponin at 55 which appears to be chronic possibly secondary to CK D with second set 56. Chronic kidney disease noted. BNP elevated at 1300. Chest x-ray with cardiomegaly with questionable vascular prominence. Patient remained pain-free in the emergency department. Discussed with supervisor porcelain department as noted above, recommends observation admission, no indication for transfer to higher level facility at this time. Discussed with admitting hospitalist who is agreeable to admission. Encounter Diagnosis ICD-10-CM 1. Chest pain, unspecified type R07.9 2. Dyspnea, unspecified type R06.00 Plan The Patient was ADMITTED TO: Regular nursing floor. Case discussed with admitting physician, Dr. Singer. Condition at time of disposition: stable SIGNATURE: DO Jameson Cunha DO 01/27/18 1818 Speedy Victoria, RN, RN 01/27/2018 3:23 PM Signed Patient ambulated to bathroom with daughter Annabel Enriquez Kirt, RN, RN 01/27/2018 4:20 PM Signed Patient has an ID Band on , has an Allergy Band on, is in the bed/cart with Side Rails up x2, has the Call Bear within reach and has Fall Risk Band on. HERBERT MARINO, PHARMACIST 01/27/2018 4:40 PM Signed MEDICATION HISTORY Patient Name:Josephine Baca : 1940 Source of history:Patient: Reliability of source: Appears reliable, clearly identified: Medication name, Medication dose, Medication route and Medication frequency, Family: Reliability of source: Appears reliable, clearly identified: Medication name, Medication dose, Medication route and Medication frequency and Pharmacy records: [facility] Medication Nonadherence Identified: No barriers noted The above information represents the best possible medication history: Yes Additional comments: ? Medications removed: ? Albuterol HFA ? Medications adjusted: ? Gabapentin - sig ? Medications added: ? None ? Allergy list modifications: ? None Allergies: ALLERGIES Allergen Reactions - Aspirin Other: See Comments Patient states that she bled out every orifice, sts not allowed to take it at all. Patient states she was bleeding out of nose and mouth after one dose. - Bactrim [Sulfametho* Other: See Comments My throat swells up. - Latex Rash, Itching Itching and welts. No wheezing or shortness of breath. - Penicillins Rash, Itching Tolerated ceftriaxone during 11/2017 admission and cefepime during 12/2017 admission - Tetracycline Rash, GI Upset Emesis and diarrhea. 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 01/27/2018 at 0800 Yes gabapentin (NEURONTIN) 300 mg capsule Take 600 mg by mouth twice daily. 01/27/2018 at 0800 Yes insulin aspart U-100 (NOVOLOG FLEXPEN U-100 INSULIN) 100 unit/mL inpn Inject 12 Units subcutaneously three times daily with meals. 01/27/2018 at Unknown time Yes insulin glargine (LANTUS SOLOSTAR U-100 INSULIN) 100 unit/mL (3 mL) inpn Inject 50 Units subcutaneously every morning. 01/27/2018 at 0800 Yes insulin glargine (LANTUS SOLOSTAR U-100 INSULIN) 100 unit/mL (3 mL) inpn Inject 36 Units subcutaneously daily at bedtime. 01/26/[address] (PROTONIX) 40 mg tablet Take 40 mg by mouth twice daily. 01/27/2018 at 0800 Yes potassium chloride (K-TAB) 10 mEq tablet Take 10 mEq by mouth daily with breakfast. 01/27/2018 at 0800 Yes bacitracin (ANTIBIOTIC, BACITRACIN ZINC,) ointment Apply 1 application to affected area twice daily. 01/27/2018 at Unknown time Yes nystatin (NYSTOP) powder Apply 1 application to affected area three times daily. Unknown at Unknown time Yes isosorbide mononitrate ER (IMDUR) 60 mg 24 hr tablet Take 1 tablet by mouth once daily. 01/27/2018 at 0800 Yes apixaban (ELIQUIS) 5 mg tab(s) Take 5 mg by mouth twice daily. 01/27/2018 at 0800 Yes simvastatin (ZOCOR) 40 mg tablet Take 40 mg by mouth every morning. 01/27/2018 at 0800 Yes spironolactone (ALDACTONE) 25 mg tablet Take 1 tablet by mouth once daily. 01/27/2018 at 0800 Yes ipratropium-albuterol (DUONEB) 0.5 mg-3 mg(2.5 mg base)/3 mL nebu Inhale 3 mL as instructed every 4 hours as needed. Unknown at Unknown time Yes guaiFENesin-dextromethorphan (ROBITUSSIN DM) 100-10 mg/5 mL syrup Take 5-10 mL by mouth every 6 hours as needed for Cough. Unknown at Unknown time Yes nitroglycerin sublingual (NITROQUICK) 0.4 mg SL tablet Dissolve 1 tablet under the tongue every 5 minutes as needed. Unknown at Unknown time Yes OXYGEN, HOME THERAPY, Inhale 2.5 L/min as instructed continuous. 3 L/min when leaves home. Unknown at Unknown time Yes HERBERT MARINO, PHARMACIST January 27, 2018 4:38 PM Aissatou Paige, RN, RN 01/27/2018 7:05 PM Signed heads up given to floor YVES Tuttle 01/27/2018 7:50 PM Signed CARE MANAGEMENT: ASSESSMENT AND DISCHARGE PLAN SERVICE DATE: 01/27/2018 SERVICE TIME: 6:50 PM PRIMARY CARE PHYSICIAN: Jameson Kamara MD ADMISSION STATUS: Emergency Needs Prior to Discharge: To Be Determined MEDICAL: Patient/Home And School Visitor Stated Goals: To have reduction in symptoms To return home to life as it was Health Insurance: MEDICARE A AND B Health Issues Impacting Discharge Plan: afib,CHF, COPD, DM, HTN Last Admission Date: Previous admit date: 01/20/2018 Is this Within the Past 30 days? Yes Is This a Planned Readmission? No: Recurrent symptoms of underlying disease Followed Up with Appointment Prior to Admission: Appointment completed Where Did the Patient Come From? Home Intervention Taken to Avoid Future Readmission? Resume C, close f/u with PCP office Advance Directive: Current Advance Directive: Health Care Power of Top Precipitator Operator Helper In Chart: No (scanned to registration on 01/27) Up To Date and Valid: No (pt states POA paperwork at home is from [place] of [place], requests to complete udpated paperwork at this time) Group Work Program Aide Assisted with AD Completion: Yes Action: Patient Completed Advance Directive;Education Provided Health Literacy: 1. How often do you need to have someone help you when you read instructions, pamphlets, or other written material from your doctor or pharmacy? Sometimes - 3 2. How confident are you filling out medical forms by yourself? Somewhat - 3 If Patient scores > 3 on either question, the following interventions were put into place: dtr assists FUNCTIONAL AND COGNITIVE/BEHAVIORAL PRIOR TO ADMISSION: Baseline Mental Status: Alert AND Oriented, Person, Place , Time and Situation Functional Status: Needs Assistance Does Patient Currently Receive Any Community Services or Home Care? Home Health Care Agency: [facility]; ; Active. Equipment Prior to Admission: Bedside [facility] Bed Oxygen 2.5 liters per minute Rollator Scooter Tub bench/chair Walker Has the Patient Been in a Snf Facility in the Past 30 days? No SOCIAL: Living Arrangement: Home Lives With: Daughter Financial Resources: Retired Primary Contact: Extended Emergency Contact Information Primary Emergency Contact: Octavia Soliman Address: [address] [place] [address] Mobile Relation: Daughter Supportive: Yes Other Important Patient Contacts: None Caregiver Assessment: Caregiver is ready, willing and able to meet the patient's needs as recommended by the inter-professional team? Yes Patient's transition needs and plan for meeting these needs: home with HHC and dtr to assist as needed Does the patient have an acute stroke diagnosis, or has the patient had a stroke during this admission? No Medication Adherence: I am convinced of the importance of my prescription medication: Agree completely - 0 I worry that my prescription medication will do more harm than good to me Disagree completely - 0 I feel financially burdened by my [id number]-jl-[id number] expenses for my prescription medication: Disagree completely - 0 Patient is categorized as low risk < 2 Are you interested in bedside delivery of your medications? No Pt states preferred community pharmacy is [facility] Food Concerns: In the Last Month, Have You had Trouble Getting Food? No trouble getting food During the Last Month, Have You Worried Whether Your Food Would Run Out Before You Had Enough Money to Buy More? No Is the Patient Psychosocially Complex? No ASSESSMENT AND PLAN: Medical Needs: 2 or more chronic diseases and Respiratory Insufficiency - Oxygen Psychosocial Needs: None FREEDOM OF CHOICE EXPLAINED: Yes explained to pt and dtr Preference: resume services with [facility] POTENTIAL TRANSITION PLANS Home Retirement OT/PT Met with pt bedside, introduced self and role of case management. Pt's dtr present at bedside as well and participated in assessment with pt's permission. Pt states she plans to return home with her dtr at d/c, dtr confirms she is willing to continue assisting pt as needed post d/c. Pt is also active with [facility] and wishes to resume services, referral sent. Dtr states she will transport pt at d/c. Pt states she has needed equipment at home and needs some assist with ADL's, which dtr provides. Anticipate complex d/c needs, case management to remain available for d/c planning and assist as needed. SIGNATURE: YVES Tuttle PATIENT NAME: Luz Baca DATE: January 27, 2018 TIME: 7:10 PM PAGER/CONTACT #: [phone] Gloria Singer MD 01/28/2018 5:31 AM Signed HOSPITAL MEDICINE HISTORY AND PHYSICAL EXAM PATIENT NAME: Luz Baca SERVICE DATE: 01/27/2018 SERVICE TIME: 8:23 PM Primary Care Physician: Jameson Kamara MD Attending Note I have personally performed a face to face assessment of the patient and have reviewed the MISSILEMAN note. My aguilera findings include: Patient admitted for recurrent chest pain,strong cardiac hx.stress test oct last year [place]. Hx of chronically elevated trops,EKG paced rhythm Has tenderness on chest palpation. Also has uncontrolled blood sugar readings -RBS 530 PLAN Agree with cardiology consult Adjusted insulin doses.Consult endocrinology. Continue current mgt Gloria Singer MD ? NIGHT COVERAGE Page [phone] for any questions between 5.30p-7.30a ASSESSMENT AND PLAN Active Hospital Problems Diagnosis - Chest pain in adult HS trop 55, repeat 56 which is similar to readings at previous admission likely from CKD. Pt had external stress test 07/2017: no evidence of ischemia. Cycle CE, monitor on tele. Cards consult. - Chronic combined systolic and diastolic CHF (congestive heart failure) ([facility]) Pt was just hospitalized for CHF exacerbation from 01/20/18-01/23/18. BNP 1300 improved from 2145 from last admit. Continue home meds. - Atrial fibrillation (HCC) On eliquis. S/p pacemaker. Monitor on tele. - Pacemaker Had recent device interrogation 12/2017. - CAD (coronary artery disease) CABGx2 (DEBORAH-LAD, SVG-PDA ) in 2004 - Uncontrolled type 2 diabetes mellitus with stage 3 chronic kidney disease, with long-term current use of insulin ([facility]) HbA1c: 12.0. Endocrinology saw pt during recent hospitalization. Continue recc lantus and humalog dosing. - Essential hypertension Stable, continue home meds. - Sleep apnea Wears CPAP at home, continue. SUBJECTIVE CHIEF COMPLAINT: CP HPI: This is a 77 year old female with PMHx of HOCM s/p myectomy, chronic AF on eliquis, s/p pacemaker, CAD s/p multiple stents and CABG, CKD stage III, DMII, HTN, HLD, COPD (2L O2 continuous), who presents with CP that started around 5am today. Pain is intermitent and episodes last about 5 minutes, midsternal and around pacemaker without radiation, sharp and stabbing. Associated SOB worse than baseline. Denies n/v/d/f/c, diaphoresis. Pt was just hospitalized for CHF exacerbation from 01/20/18-01/23/18. HStrop 55, repeat 56 which is similar to readings at previous admission likely from CKD. BNP 1300 improved from 2145 from last admit. CKD: BUN 49, Cr 1.56 which is baseline. EKG paced rhythm. Pt had external stress test 07/2017: no evidence of ischemia. Pt had device interrogation last month. HbA1c: 12.0. Endocrinology saw pt during recent hospitalization. PAST MEDICAL HISTORY: PAST MEDICAL HISTORY Diagnosis Date - Arthritis - Atrial fibrillation (HCC) - CAD (coronary artery disease) stents x9, defibrillator, CABG. Seeing Dr. Cardona - Cardiac defibrillator in place - Cardiomegaly - Carotid artery disease ([facility]) left - CKD (chronic kidney disease), stage IV ([facility]) Dr. Martin - COPD (chronic obstructive pulmonary disease) ([facility]) Dr. Cruz - Depression - Diabetes (HCC) - Diabetic neuropathy (HCC) - GERD (gastroesophageal reflux disease) - Gout - HH (hiatus hernia) - HH (hiatus hernia) - HOCM (hypertrophic obstructive cardiomyopathy) ([facility]) - HOCM (hypertrophic obstructive cardiomyopathy) ([facility]) S/P Septal Myectomy in 2003. Echo 09/23/10 shows no visable GABRIEL. LVOT gradient is 8mmHg. - HTN (hypertension) - Hyperlipidemia - Morbid obesity with BMI of 40.0-44.9, adult ([facility]) - Pacemaker - Pneumonia h/o pneumonia/bronchitis - Renal insufficiency 2003 post op - Sleep apnea 2011 not on CPAP, unable to tolerate mask 02/2017 - SVT (supraventricular tachycardia) ([facility]) NSVT and questionable VT in 2003 post op PAST SURGICAL HISTORY: PAST SURGICAL HISTORY Procedure Laterality Date - PAST SURGICAL HISTORY OF 07/18/2004 Septal myectomy and CABG x2 (DEBORAH-LAD, SVG-PDA). - PAST SURGICAL HISTORY OF left breast nodule removed - PAST SURGICAL HISTORY OF hysterectomy - PAST SURGICAL HISTORY OF perianal abscess drained - PAST SURGICAL HISTORY OF cholecystectomy - PAST SURGICAL HISTORY OF skin lesions removed FAMILY HISTORY: FAMILY HISTORY Problem Relation Age of Onset - Hypertension Mother living at age 93, HTN - Heart Failure Mother [place] - Cancer Father age 71, lung cancer SOCIAL HISTORY: Social History Substance Use Topics - Smoking status: Former Smoker Packs/day: 2.50 Years: 43.00 Types: Cigarettes Start date: 1961 Quit date: 07/07/2004 - Smokeless tobacco: Never Used - Alcohol use No MEDICATIONS: Reviewed ALLERGIES: ALLERGIES Allergen Reactions - Aspirin Other: See Comments Patient states that she bled out every orifice, sts not allowed to take it at all. Patient states she was bleeding out of nose and mouth after one dose. - Bactrim [Sulfametho* Other: See Comments My throat swells up. - Latex Rash, Itching Itching and welts. No wheezing or shortness of breath. - Penicillins Rash, Itching Tolerated ceftriaxone during 11/2017 admission and cefepime during 12/2017 admission - Tetracycline Rash, GI Upset Emesis and diarrhea. - Atorvastatin Rash - Codeine Other: See Comments Numbness - Dilaudid [Hydromorp* Mental Status Change - Meperidine - Pentazocine - Pioglitazone Unknown - Propoxyphene REVIEW OF SYSTEM: PAIN ASSESSMENT: Negative for pain, history of chronic pain, or current treatment for a chronic pain condition. GENERAL: No weight loss, malaise or fevers. HEENT: Negative for frequent or significant headaches, No changes in hearing or vision, no nose bleeds or other nasal problems NECK: Negative for lumps, goiter, pain and significant neck swelling RESPIRATORY: Negative for cough, hemoptysis, wheezing or shortness of breath CARDIOVASCULAR: +chest pain. Negative for leg swelling or palpitations. GI: No nausea, vomiting, or diarrhea : No history of dysuria, frequency or incontinence. MUSCULOSKELETAL: Negative for joint pain or swelling, back pain or muscle pain. SKIN: Negative for lesions, rash, and itching. PSYCH: Negative for sleep disturbance, mood disorder and recent psychosocial stressors. HEMATOLOGY/LYMPHOLOGY: Negative for prolonged bleeding, bruising easily or swollen nodes. ENDOCRINE: Negative for cold or heat intolerance, polyuria, polydipsia and goiter. NEURO: No history of headaches, syncope, paralysis, seizures or tremors OBJECTIVE PHYSICAL EXAM: BP 128/72 Pulse 64 Temp (Src) 98.4 (Oral) Resp 20 Ht 5' 8 (1.73m) Wt 232 lb (105.2kg) SpO2 98% BMI 35.28 kg/(m2). GENERAL: alert, no distress, cooperative SKIN: Skin color, texture, turgor normal. No rashes or lesions. NECK: no jugulovenous distention, supple BACK: Back symmetric, Normal curvature, ROM normal, No CVAT. LUNGS: Lungs clear to auscultation. Good diaphragmatic excursion. CARDIAC: RRR; no rubs, murmurs, or gallops ABDOMEN: Abdomen soft, non-tender. BS normal. No masses or organomegaly. EXTREMITIES: Extremities normal. No deformities, edema, clubbing or skin discoloration., No ulcers NEURO: Sensation grossly intact., Cranial nerves II-XII intact DATA: Diagnostic tests reviewed for today's visit: Most recent labs Most recent imaging Most recent EKG CBC: WBC 7.63 01/27/2018 HEMOGLOBIN 12.1 01/27/2018 HEMATOCRIT 38.6 01/27/2018 PLATELETS 165 01/27/2018 CMP: Sodium 138 01/27/2018 Potassium 4.7 01/27/2018 BUN 49 01/27/2018 Creatinine 1.56 01/27/2018 Glucose 423 01/27/2018 Chloride 96 01/27/2018 CO2 Content, Venous 32 01/27/2018 VTE Prophylaxis: Patient is already anti-coagulated. Disposition: Home Plan of care discussed with: Patient and RN SIGNATURE: Raymond Rangel PA-C DATE: January 27, 2018 TIME: 8:23 PM Previous Version SVETLANA COLON, PHARMACIST 01/27/2018 10:51 PM Signed CLINICAL PHARMACY Quality Measures PATIENT NAME: Luz Baca SERVICE DATE: 01/27/2018 TIME: 10:51 PM ACEI/ARB indication for Heart Failure/AMI Core Measures Review/Screening: LVEF = 50% from echocardiogram on 12/21/17. DAMION-I/ARB: No, patient's LVEF is greater than 40% SVETLANA COLON, PHARMD, BCPS PAGER / Extension: [phone] Nova Aviles, RN, RN 01/28/2018 7:47 AM Addendum Nursing Progress Note Patient Name: Luz Baca Patient Location: [place] [id number] Daily Note:01/27/182014 Patient arrives to unit, admission completed, assessment completed. Medications reconciled. Patient educated on unit policies and procedures. 2123 Notified GORGE Aguillon of condition, orders placed. 2148 Troponin results, EKG completed, v paced rhythm results, see paper chart 7256 in with patient. Ok to hold HS PO lasix 80mg. IV lasix was giving in ED at 1900. Notified of troponin 0.059 and EKG. 01/27/18 0034 Humalog scale sliding ordered meals and HS by , notified of BG 478, ordered to follow scale, no additional Humalog needed besides 15 units. Offered CPAP for HS, refuses, refuses at home also. 0242 BG rechecked based on nursing judgement, 346 results. 0253 Page out to hospitalist to notify of BG. Awaiting call back. 0300 Page out to hospitalist, awaiting call back. 0320 Patient observed sleeping, no visible distress noted. Vpaced on tele, HR 62. 0343 Spoke with , continue to monitor BG. No new orders for additional coverage at this time, preventing drop in BG too quickly. 0456 EKG completed as ordered, see paper chart. 0515 Patient dangle, awake in bed, report mild CP, pressure like, 2/10 verbally, tolerable. 0700 Spoke with for consultation. Order to cut morning 60 units of Lantus to 30 units at 8 AM. Continue other insulin dosages as ordered. will see patient tomorrow. 0745 Page out to hospitalist notifying of repeat troponin 0.076. Awaiting any new orders for patient. Bedside report given to resident care assistant. This note was completed by: Nova Aviles RN Previous Version Shruti Nair MD 01/28/2018 11:06 AM Signed ENDOCRINOLOGY PLAN OF CARE Consult received - diabetes mgmt Case discussed with RN Patient know to our service from her recent hospitalization last week She was hyperglycemic on admission Patient received lantus 40 units last night BG improved overnight Will given lantus 30 units now Continue lantus 40 units q HS Continue humalog 12 units with meals Monitor accucheck AC/HS Formal consult to follow Shruti Nair MD 01/28/18 Peyman Guerrero MD 01/28/2018 1:16 PM Signed DEPARTMENT OF HOSPITAL MEDICINE PROGRESS NOTE SERVICE DATE: 01/28/2018 SERVICE TIME: 1:13 PM Hospital Medicine/Primary Attending: Peyman Guerrero MD NIGHT AND WEEKEND COVERAGE: Nights: Please contact pager [phone]. Subjective Subjective Pt still reports chest pain, intermittent, non exertional SOB is seemed to be at baseline, on oxygen support Denies any N/V/abdominal pain Stable vitals MEDICATIONS: Reviewed Objective Physical Exam Performed Objective Lines, Drains, and Airways Line Peripheral 01/27/18 1516 Left Antecubital 20 Gauge less than 1 day Reviewed lines, drains, airways. Will discuss with nurse and discontinue at discharge 01/28/18 0724 01/28/18 0828 01/28/18 0837 01/28/18 1107 BP: 135/67 123/57 Pulse: 64 65 66 63 Resp: Temp: 36.4 ?C (97.5 ?F) 36.5 ?C (97.7 ?F) TempSrc: Oral Oral SpO2: 95% 99% 97% Weight: Height: PHYSICAL EXAMINATION General: Alert and oriented, no distress, pleasant and cooperative. Heart: Regular, normal S1 and S2, no murmurs, rubs, or gallops Lungs: Clear to auscultation bilaterally Abdomen: Benign Extremities: Feet/ankles without edema, posterior tibial pulses full and symmetrical DATA: Diagnostic tests reviewed for today's visit: Most recent labs and imaging results. CBC, Coags, BMP, Mg, Phos Recent Labs 01/28/18 0455 01/27/18 2149 01/27/18 1515 01/26/18 1244 WBC 5.97 -- 7.63 8.66 HB 12.1 -- 12.1 12.5 HCT 38.1 -- 38.6 39.7 PLT 150 -- 165 154 INR -- -- 1.0 -- APTT -- -- 25.0 -- NA 141 132* 138 136 K 4.6 5.0 4.7 5.1 CHLOR 96* 89* 96* 96* CO2 34* 27 32* 26 BUN 49* 49* 49* 45* CREAT 1.64* 1.59* 1.56* 1.49* GLUC 208* 507* 423* 390* CA 9.0 8.5 8.6 8.6 MG -- -- 2.1 2.5* Assessment/Plan Principal Problem: Chest pain in adult ? ? HS trop 55, repeat 56 which is similar to readings at previous admission likely from CKD. Pt had external stress test 07/2017: no evidence of ischemia. Cycle CE, monitor on tele. Cards consulted. F/u recs - Chronic combined systolic and diastolic CHF (congestive heart failure) (HCC) ? ? Pt was just hospitalized for CHF exacerbation from 01/20/18-01/23/18. BNP 1300 improved from 2145 from last admit. Continue home meds. - Atrial fibrillation (HCC) ? ? On eliquis. S/p pacemaker. Monitor on tele. - Pacemaker ? ? Had recent device interrogation 12/2017. - CAD (coronary artery disease) ? ? CABGx2 (DEBORAH-LAD, SVG-PDA ) in 2004 - Uncontrolled type 2 diabetes mellitus with stage 3 chronic kidney disease, with long-term current use of insulin (HCC) ? ? HbA1c: 12.0. Endocrinology saw pt during recent hospitalization. Continue recc lantus and humalog dosing. - Essential hypertension ? ? Stable, continue home meds. ? - Sleep apnea ? ? Wears CPAP at home, continue. VTE Prophylaxis: Patient is already anti-coagulated. Disposition: Home Plan of care discussed with: Patient and RN SIGNATURE: Peyman Guerrero MD PATIENT NAME: Luz Baca DATE: January 28, 2018 TIME: 1:13 PM PAGER/CONTACT #: [phone] Clemente Rose (Expert Medical Writer) 01/28/2018 2:10 PM Attested Attestation signed by Evy Kilgore (Pharmacist) at 01/28/2018 3:17 PM Preceptor Addendum: This case has been reviewed and discussed with the pharmacy resident. I agree with the assessment/plan described by the student. Changes and additions to the details in the note are indicated by italics and . Evy Kilgore, Pharmacist Heart Failure Education Note Patient Name:Josephine Baca Service Date: 01/28/2018 Service Time: 2:07 PM Heart Failure Education Provided: Patient was provided written and verbal instructions of heart failure management, activity as tolerated, signs and symptoms of heart failure/worsening heart failure, and to contact their physician if exhibits these symptoms. Instructed patient to contact his or her HF physician if his or her weight increases or decreases more than or equal to 4 lbs from dry weight. Medication Education Provided: 1. Reason for taking medications and treatment goals. 2. Benefits of medication therapy. 3. How medications work. 4. When to take medications and what to do is a dose is missed. 5. Potential side effects of medications. 6. Importance of regularly filling prescriptions and taking medications. Patient was given opportunity to ask questions and receive answers. Current Inpatient Medications: Current hospital medications: insulin lispro injection (rapid acting) (HumaLOG) SUBCUTANEOUS w MEALS AND HS insulin glargine 30 Units injection (long acting) (LANTUS) 30 Units SUBCUTANEOUS DAILY (8 AM) spironolactone 25 mg tab(s) (ALDACTONE) 25 mg ORAL BID 9a/5p furosemide 80 mg injection (LASIX) 80 mg INTRAVENOUS BID 9a/5p gabapentin 600 mg cap(s) (NEURONTIN) 600 mg ORAL BID simvastatin 40 mg tab(s) (ZOCOR) 40 mg ORAL AT BEDTIME ipratropium-albuterol 3 mL nebulizer solution (DUONEB) 3 mL INHALATION q 4 H PRN apixaban 5 mg tab(s) (ELIQUIS) 5 mg ORAL BID insulin glargine 40 Units injection (long acting) (LANTUS) 40 Units SUBCUTANEOUS AT BEDTIME pantoprazole DR 40 mg tab(s) (PROTONIX) 40 mg ORAL BID bacitracin 1 application topical ointment 1 application TOPICAL BID isosorbide mononitrate ER 60 mg tab(s) (IMDUR) 60 mg ORAL DAILY 0.9% NaCl 3-5 mL 3-5 mL INTRAVENOUS q 12 H dextrose 40 % 15 g 15 g ORAL PRN glucagon 1 mg injection (GLUCAGEN) 1 mg INTRAMUSCULAR PRN dextrose 50% in water 25 mL syringe 12.5 g INTRAVENOUS PRN insulin lispro 12 Units injection (rapid acting) (HumaLOG) 12 Units SUBCUTANEOUS w MEALS miconazole 2 % 1 application topical powder (LOTRIMIN AF, DESENEX) 1 application TOPICAL BID READINESS TO LEARN COGNITIVE ABILITY: Alert and oriented MOTIVATION TO LEARN: Eager Interested FAMILY SUPPORT: High - Very involved in pt care INSTRUCTION PROVIDED TO: Patient and Family member PATIENT LEARNS BEST BY: Unable to Assess FACTORS AFFECTING LEARNING: None PHYSICAL LIMITATIONS AFFECTING LEARNING: None LEARNING RESPONSE DIAGNOSIS: Heart Failure PATIENT/FAMILY RESPONSE: Verbalizes understanding of: The signs and symptoms of a worsening condition that warrant a call to the physician. The correct actions to take to manage symptoms associated with his/her disease/illness. Accurate knowledge of prescribed medication prior to discharge. The side effects associated with the medication that warrant a call to the physician. Fluid restrictions Diet / weight monitoring METHOD OF INSTRUCTION: Written instruction - handouts Verbal instruction FOLLOW-UP PLAN: Complete - No need for follow-up INSTRUCTIONAL AIDS USED: Your Guide to Managing Heart Failure SUPPLEMENTAL MATERIAL PROVIDED: Heart Failure education handout FURTHER RECOMMENDATIONS (IF ANY): None SIGNATURE: Clemente Milton (Expert Medical Writer) PAGER: [phone] Jose C Yeung MD 01/29/2018 1:07 AM Addendum BRIEF CONSULT NOTE SERVICE DATE: 01/28/2018 SERVICE TIME: 2:23 PM Patient seen and examined Formal consult note to follow ASSESSMENT AND PLAN ASHD - CABGx3 2003, PCIx6 RCA 2013, PCIx3 2014 HCM - septal myectomy 2003 CHF - acute on chronic diastolic, DAMION-I/ARB intolerance (CRF) Cardiomyopathy - ischemic, ICD 2014, revised 11/2016, beta lenny intolerance HTN DM HL MARLA - unable to tolerate CPAP PAF- anticoagulated with apixaban CKD I think that her heart failure may not have been completely treated on her last admission; despite the fact that her NTpBNP is lower, she continues to have signs of volume overload; she has no wheezing on exam to suggest bronchospasm I would increase lasix to 80 mg IV bid, continue spironolactone and increase to BID If her dyspnea does not improve with diuresis, consider repeat stress testing or R+L heart cath for ischemic evaluation Although she had reportedly been intolerant in the past, consider resuming beta-lenny Dr. Garcia to cover starting tomorrow SIGNATURE: Jose C Yeung MD PATIENT NAME: Luz Baca DATE: January 28, 2018 TIME: 2:23 PM PAGER: [phone] CONSULT: CARDIOLOGY SERVICE CONSULTING PHYSICIAN: Jose C Yeung MD PCP: Jameson Kamara MD ATTENDING: Peyman Guerrero REASON FOR CONSULT: Shortness of Breath Subjective CHIEF COMPLAINT: Cardiac enzymes elevated [R74.8] HISTORY OF PRESENT ILLNESS: This is a 77 year old female with PMHx of HOCM s/p myectomy, chronic AF on eliquis, s/p pacemaker, CAD s/p multiple stents and CABG, CKD stage III, DMII, HTN, HLD, COPD (2L O2 continuous), who presents with CP that started around 5am today. Pain is intermitent and episodes last about 5 minutes, midsternal and around pacemaker without radiation, sharp and stabbing. Associated SOB worse than baseline. Denies n/v/d/f/c, diaphoresis. ? Pt was just hospitalized for CHF exacerbation from 01/20/18-01/23/18. ? HStrop 55, repeat 56 which is similar to readings at previous admission likely from CKD. BNP 1300 improved from 2145 from last admit. CKD: BUN 49, Cr 1.56 which is baseline. EKG paced rhythm. ? Pt had external stress test 07/2017: no evidence of ischemia. Pt had device interrogation last month. PAST MEDICAL HISTORY Diagnosis Date - Arthritis - Atrial fibrillation ([facility]) - CAD (coronary artery disease) stents x9, defibrillator, CABG. Seeing Dr. Cadrona - Cardiac defibrillator in place - Cardiomegaly - Carotid artery disease ([facility]) left - CKD (chronic kidney disease), stage IV ([facility]) Dr. Martin - COPD (chronic obstructive pulmonary disease) ([facility]) Dr. Cruz - Depression - Diabetes ([facility]) - Diabetic neuropathy ([facility]) - GERD (gastroesophageal reflux disease) - Gout - HH (hiatus hernia) - HH (hiatus hernia) - HOCM (hypertrophic obstructive cardiomyopathy) ([facility]) - HOCM (hypertrophic obstructive cardiomyopathy) ([facility]) S/P Septal Myectomy in 2003. Echo 09/23/10 shows no visable GABRIEL. LVOT gradient is 8mmHg. - HTN (hypertension) - Hyperlipidemia - Morbid obesity with BMI of 40.0-44.9, adult ([facility]) - Pacemaker - Pneumonia h/o pneumonia/bronchitis - Renal insufficiency 2003 post op - Sleep apnea 2012 not on CPAP, unable to tolerate mask 02/2017 - SVT (supraventricular tachycardia) ([facility]) NSVT and questionable VT in 2003 post op PAST SURGICAL HISTORY Procedure Laterality Date - PAST SURGICAL HISTORY OF 07/18/2004 Septal myectomy and CABG x2 (DEBORAH-LAD, SVG-PDA). - PAST SURGICAL HISTORY OF left breast nodule removed - PAST SURGICAL HISTORY OF hysterectomy - PAST SURGICAL HISTORY OF perianal abscess drained - PAST SURGICAL HISTORY OF cholecystectomy - PAST SURGICAL HISTORY OF skin lesions removed FAMILY HISTORY Problem Relation Age of Onset - Hypertension Mother living at age 93, HTN - Heart Failure Mother [place] - Cancer Father age 71, lung cancer Social History Substance Use Topics - Smoking status: Former Smoker Packs/day: 2.50 Years: 43.00 Types: Cigarettes Start date: 1961 Quit date: 07/07/2004 - Smokeless tobacco: Never Used - Alcohol use No Prior to Admission Medications Prescriptions Last Dose Informant Patient Reported? Taking? OXYGEN, HOME THERAPY, Unknown at Unknown time Yes Yes Sig: Inhale 2.5 L/min as instructed continuous. 3 L/min when leaves home. albuterol (PROVENTIL) 5 mg/mL nebu No No Sig: Inhale 0.5 mL as instructed one time only for 1 dose. 1 DOSE NOW - BACK OFFICE. PLACE 0.5 ML PER DROPPER AND 2.5 ML OF NORMAL SALINE INTO RESERVOIR. Patient not taking: Reported on 01/26/2018 apixaban (ELIQUIS) 5 mg tab(s) 01/27/2018 at 0800 Yes Yes Sig: Take 5 mg by mouth twice daily. bacitracin (ANTIBIOTIC, BACITRACIN ZINC,) ointment 01/27/2018 at Unknown time No Yes Sig: Apply 1 application to affected area twice daily. furosemide (LASIX) 40 mg tablet 01/27/2018 at 0800 Yes Yes Sig: Take 80 mg by mouth twice daily. gabapentin (NEURONTIN) 300 mg capsule No No Sig: Take 2 capsules by mouth three times daily for 30 days. Patient taking differently: Take 600 mg by mouth twice daily. gabapentin (NEURONTIN) 300 mg capsule 01/27/2018 at 0800 Yes Yes Sig: Take 600 mg by mouth twice daily. guaiFENesin-dextromethorphan (ROBITUSSIN DM) 100-10 mg/5 mL syrup Unknown at Unknown time No Yes Sig: Take 5-10 mL by mouth every 6 hours as needed for Cough. insulin aspart U-100 (NOVOLOG FLEXPEN U-100 INSULIN) 100 unit/mL inpn 01/27/2018 at Unknown time Yes Yes Sig: Inject 12 Units subcutaneously three times daily with meals. insulin glargine (LANTUS SOLOSTAR U-100 INSULIN) 100 unit/mL (3 mL) inpn 01/27/2018 at 0800 Yes Yes Sig: Inject 50 Units subcutaneously every morning. insulin glargine (LANTUS SOLOSTAR U-100 INSULIN) 100 unit/mL (3 mL) inpn 01/26/2018 at 2200 Yes Yes Sig: Inject 36 Units subcutaneously daily at bedtime. ipratropium-albuterol (DUONEB) 0.5 mg-3 mg(2.5 mg base)/3 mL nebu Unknown at Unknown time No Yes Sig: Inhale 3 mL as instructed every 4 hours as needed. isosorbide mononitrate ER (IMDUR) 60 mg 24 hr tablet 01/27/2018 at 0800 No Yes Sig: Take 1 tablet by mouth once daily. nitroglycerin sublingual (NITROQUICK) 0.4 mg SL tablet Unknown at Unknown time No Yes Sig: Dissolve 1 tablet under the tongue every 5 minutes as needed. nystatin (NYSTOP) powder Unknown at Unknown time No Yes Sig: Apply 1 application to affected area three times daily. pantoprazole DR (PROTONIX) 40 mg tablet 01/27/2018 at 0800 Yes Yes Sig: Take 40 mg by mouth twice daily. potassium chloride (K-TAB) 10 mEq tablet 01/27/2018 at 0800 Yes Yes Sig: Take 10 mEq by mouth daily with breakfast. simvastatin (ZOCOR) 40 mg tablet 01/27/2018 at 0800 Yes Yes Sig: Take 40 mg by mouth every morning. spironolactone (ALDACTONE) 25 mg tablet 01/27/2018 at 0800 No Yes Sig: Take 1 tablet by mouth once daily. Facility-Administered Medications: None Current hospital medications: insulin lispro injection (rapid acting) (HumaLOG) SUBCUTANEOUS w MEALS AND HS insulin glargine 30 Units injection (long acting) (LANTUS) 30 Units SUBCUTANEOUS DAILY (8 AM) spironolactone 25 mg tab(s) (ALDACTONE) 25 mg ORAL BID 9a/5p furosemide 80 mg injection (LASIX) 80 mg INTRAVENOUS BID 9a/5p gabapentin 600 mg cap(s) (NEURONTIN) 600 mg ORAL BID simvastatin 40 mg tab(s) (ZOCOR) 40 mg ORAL AT BEDTIME ipratropium-albuterol 3 mL nebulizer solution (DUONEB) 3 mL INHALATION q 4 H PRN apixaban 5 mg tab(s) (ELIQUIS) 5 mg ORAL BID insulin glargine 40 Units injection (long acting) (LANTUS) 40 Units SUBCUTANEOUS AT BEDTIME pantoprazole DR 40 mg tab(s) (PROTONIX) 40 mg ORAL BID bacitracin 1 application topical ointment 1 application TOPICAL BID isosorbide mononitrate ER 60 mg tab(s) (IMDUR) 60 mg ORAL DAILY 0.9% NaCl 3-5 mL 3-5 mL INTRAVENOUS q 12 H dextrose 40 % 15 g 15 g ORAL PRN glucagon 1 mg injection (GLUCAGEN) 1 mg INTRAMUSCULAR PRN dextrose 50% in water 25 mL syringe 12.5 g INTRAVENOUS PRN insulin lispro 12 Units injection (rapid acting) (HumaLOG) 12 Units SUBCUTANEOUS w MEALS miconazole 2 % 1 application topical powder (LOTRIMIN AF, DESENEX) 1 application TOPICAL BID ALLERGIES Allergen Reactions - Aspirin Other: See Comments Patient states that she bled out every orifice, sts not allowed to take it at all. Patient states she was bleeding out of nose and mouth after one dose. - Bactrim [Sulfametho* Other: See Comments My throat swells up. - Latex Rash, Itching Itching and welts. No wheezing or shortness of breath. - Penicillins Rash, Itching Tolerated ceftriaxone during 11/2017 admission and cefepime during 12/2017 admission - Tetracycline Rash, GI Upset Emesis and diarrhea. - Atorvastatin Rash - Codeine Other: See Comments Numbness - Dilaudid [Hydromorp* Mental Status Change - Meperidine - Pentazocine - Pioglitazone Unknown - Propoxyphene CARDIAC STATUS: Chest Pain: Denies Dyspnea: Dyspnea at rest Ankle Edema: Pitting, +2 bilateral to ankles Arrhythmia: Negative, Patient denies palpitations, lightheadedness, dizziness, syncope or near syncope. Functional Capacity: Average Activity includes Sedentary REVIEW OF SYSTEMS: The following systems were reviewed with the patient, and are unremarkable other than as described below. SYSTEMIC: No fever, chills, or change in weight or appetite HEENT: No recent change in vision or hearing. CARDIOVASCULAR: No murmur, gallop. Denies chest pain or palpitations. GI: No recent nausea, vomiting or diarrhea. : No recent hematuria or dysuria. SKIN: No recent itching or eruption. PSYCH: No recent active anxiety or depression. HEMATOLOGY/ONCOLOGY: No recent diagnosis of bleeding or cancer. ENDOCRINE: No recent polyuria or heat intolerance. NEURO: No recent TIA, stroke or seizures. RHEUMATOLOGY: No recent active connective tissue disease. Objective PHYSICAL EXAM: Pleasant, comfortable, not in acute distress. Awake, alert, oriented times 3. Moves all extremities. SKIN: No rash or lumps. HEENT: Normocephalic, face symmetrical. NECK: JVD, 15 cm in height, No carotid bruits, Carotid pulse normal contour, Supple LUNGS: decreased breath sounds bilaterally CARDIAC: PMI present, RRR, S1 and S2, no S3 or S4, no additional heart sounds or murmurs. ABDOMEN: Soft, nontender, bowel sounds present. EXTREMITIES: No edema. PULSES: Peripheral pulses present. Body mass index is 34.52 kg/(m2). O2 Therapy: Nasal Cannula No Data Recorded Patient Vitals for the past 48 hrs: BP Temp Temp src Pulse Resp SpO2 Height Weight 01/28/18 2347 126/58 36.4 ?C (97.5 ?F) Oral 64 16 95 % - - 01/28/18 1936 127/64 36.7 ?C (98.1 ?F) Oral 64 16 97 % - - 01/28/18 1603 107/91 36.5 ?C (97.7 ?F) Oral 64 20 98 % - - 01/28/18 1107 123/57 36.5 ?C (97.7 ?F) Oral 63 18 97 % - - 01/28/18 0837 - - - 66 20 - - - 01/28/18 0828 - - - 65 20 99 % - - 01/28/18 0724 135/67 36.4 ?C (97.5 ?F) Oral 64 18 95 % - - 01/28/18 0600 - - - - - - - 103 kg (227 lb) 01/28/18 0305 (!) 112/49 36.4 ?C (97.5 ?F) Oral 60 18 98 % - - 01/28/18 0135 (!) 115/44 36.3 ?C (97.3 ?F) Oral 63 18 96 % - - 01/27/18 2302 143/61 - - 64 - - - - 01/27/181 - - - 62 20 - - - 01/27/182209 - - - 60 20 100 % - - 01/27/182014 128/72 36.9 ?C (98.4 ?F) Oral 64 20 98 % - - 01/27/18 1908 139/65 - - 80 - 97 % - - 01/27/18 1729 140/66 36.6 ?C (97.8 ?F) Oral 64 20 95 % - - 01/27/18 1620 138/62 - - 60 16 98 % - - 01/27/18 1440 123/53 36.9 ?C (98.4 ?F) Oral 62 19 (!) 93 % 172.7 cm (5' 8) 105.2 kg (232 lb) DATA: Diagnostic tests reviewed for today's visit: Most recent labs Most recent imaging Most recent EKG Past 72 Hour Labs: Recent Labs 01/28/18 0455 01/27/18 1515 CK -- -- 49 TROPT 0.076* < > -- WBC 5.97 -- 7.63 RBC 3.91 -- 3.93 HB 12.1 -- 12.1 HCT 38.1 -- 38.6 MCV 97.4 -- 98.2 MCH 30.9 -- 30.8 MCHC 31.8 -- 31.3 RDWCV 15.1* -- 15.3* PLT 150 -- 165 MPV 9.8 -- 9.7 NEUTP -- -- 70.0 LYMPHP -- -- 19.0 MONOP -- -- 9.4 EODINP -- -- 1.2 BASOP -- -- 0.4 ABSNEUT -- -- 5.34 ABSMONO -- -- 0.72 ABSEOSIN -- -- 0.09 ABSBASO -- -- 0.03 GLUC 208* < > 423* BUN 49* < > 49* CREAT 1.64* < > 1.56* NA 141 < > 138 K 4.6 < > 4.7 CHLOR 96* < > 96* CO2 34* < > 32* TPROT 6.3 -- 6.6 ALB 3.4* -- 3.3* CA 9.0 < > 8.6 ALKPHOS 96 -- 105 TBILI 0.5 -- 0.4 AST 22 -- 19 ALT 25 -- 26 PTSEC -- -- 10.1 APTT -- -- 25.0 INR -- -- 1.0 MG -- -- 2.1 < > = values in this interval not displayed. Last Lab Drawn: TSH 1.300 2010 Triglyceride 137 05/17/2017 HDL Cholesterol 34 05/17/2017 LDL Cholesterol 84 05/17/2017 Cholesterol, Total 145 05/17/2017 SIGNATURE: Jose C Yeung MD PATIENT NAME: Luz Baca DATE: January 29, 2018 TIME: 1:02 AM PAGER/CONTACT #: Previous Version Glendy Sales RN, RN 01/28/2018 4:10 PM Signed CARE MANAGEMENT PROGRESS NOTE SERVICE DATE: 01/28/2018 SERVICE TIME: 4:08 PM LOS: 0 days Needs Prior to Discharge: To Be Determined Chart reviewed, continued IV diuresis today. If dyspnea does not improve, may need stress test or heart cath. CM met with pt and her daughter Octavia at bedside. Reconfirmed plan to return home with continued HHC with [facility]. Both deny questions or concerns. TCC to remain available for continued discharge planning. SIGNATURE: Glendy Sales RN PATIENT NAME: Luz Baca DATE: January 28, 2018 TIME: 4:08 PM PAGER/CONTACT #: [phone] CHARLOTTE LEARY RN, RN 01/29/2018 6:16 PM Signed Nursing Progress Note Patient Name: Luz Baca Patient Location: [id number] Daily Note:0744: Attending paged to address potassium this AM reading 5.3. 0900: Kayexelate prescribed per attending and given at this time. 1315: Attending at bedside, and he states that the patient has verbalized to him she has had a total of 5 loose stools since arrival, even though she has only gone twice for today's staff. He reports he would like to r/o c diff at this time. Pt placed in isolation. This note was completed by: ALLYSON ANDERSONano, DO 01/29/2018 12:54 PM Signed 01/29/2018 CONSULT PROGRESS NOTE SERVICE TIME: 1010 ASSESSMENT AND PLAN ASHD - CABGx3 2003, PCIx6 RCA 2013, PCIx3 2014 HCM - septal myectomy 2003 CHF - acute on chronic diastolic, DAMION-I/ARB intolerance (CRF) Cardiomyopathy - ischemic, ICD 2014, revised 11/2016, beta lenny intolerance HTN DM HL MARLA - unable to tolerate CPAP PAF- anticoagulated with apixaban CKD Lasix increased to 80 mg IV bid per Dr. Yeung yesterday and spironolactone increased to BID Will need to watch for volume contraction given that she now has diarrhea. She does noted her SOB is much improved today. Switch to PO diuretics in the next 24-48 hrs. SIGNATURE: Clay Garcia DO, FACC, FCCP, FACOI. PATIENT NAME: Luz Baca DATE: January 29, 2018 TIME: 1010 PAGER: [phone] CONSULT PROGRESS NOTE: CARDIOLOGY SERVICE PCP: Jameson Kamara MD ATTENDING: Peyman Guerrero REASON FOR CONSULT: Shortness of Breath Subjective HISTORY OF PRESENT ILLNESS: This is a 77 year old female with PMHx of HOCM s/p myectomy, chronic AF on eliquis, s/p pacemaker, CAD s/p multiple stents and CABG, CKD stage III, DMII, HTN, HLD, COPD (2L O2 continuous), who presents with CP that started around 5am today. Pain is intermitent and episodes last about 5 minutes, midsternal and around pacemaker without radiation, sharp and stabbing. Associated SOB worse than baseline. Denies n/v/d/f/c, diaphoresis. ? Pt was just hospitalized for CHF exacerbation from 01/20/18-01/23/18. ? HStrop 55, repeat 56 which is similar to readings at previous admission likely from CKD. BNP 1300 improved from 2145 from last admit. CKD: BUN 49, Cr 1.56 which is baseline. EKG paced rhythm. ? Pt had external stress test 07/2017: no evidence of ischemia. Pt had device interrogation last month. PAST MEDICAL HISTORY Diagnosis Date - Arthritis - Atrial fibrillation ([facility]) - CAD (coronary artery disease) stents x9, defibrillator, CABG. Seeing Dr. Cardona - Cardiac defibrillator in place - Cardiomegaly - Carotid artery disease ([facility]) left - CKD (chronic kidney disease), stage IV ([facility]) Dr. Martin - COPD (chronic obstructive pulmonary disease) ([facility]) Dr. Cruz - Depression - Diabetes ([facility]) - Diabetic neuropathy ([facility]) - GERD (gastroesophageal reflux disease) - Gout - HH (hiatus hernia) - HH (hiatus hernia) - HOCM (hypertrophic obstructive cardiomyopathy) ([facility]) - HOCM (hypertrophic obstructive cardiomyopathy) ([facility]) S/P Septal Myectomy in 2003. Echo 09/23/10 shows no visable GABRIEL. LVOT gradient is 8mmHg. - HTN (hypertension) - Hyperlipidemia - Morbid obesity with BMI of 40.0-44.9, adult ([facility]) - Pacemaker - Pneumonia h/o pneumonia/bronchitis - Renal insufficiency 2003 post op - Sleep apnea 2011 not on CPAP, unable to tolerate mask 02/2017 - SVT (supraventricular tachycardia) ([facility]) NSVT and questionable VT in 2003 post op PAST SURGICAL HISTORY Procedure Laterality Date - PAST SURGICAL HISTORY OF 07/18/2004 Septal myectomy and CABG x2 (DEBORAH-LAD, SVG-PDA). - PAST SURGICAL HISTORY OF left breast nodule removed - PAST SURGICAL HISTORY OF hysterectomy - PAST SURGICAL HISTORY OF perianal abscess drained - PAST SURGICAL HISTORY OF cholecystectomy - PAST SURGICAL HISTORY OF skin lesions removed FAMILY HISTORY Problem Relation Age of Onset - Hypertension Mother living at age 93, HTN - Heart Failure Mother [place] - Cancer Father age 71, lung cancer Social History Substance Use Topics - Smoking status: Former Smoker Packs/day: 2.50 Years: 43.00 Types: Cigarettes Start date: 1961 Quit date: 07/07/2004 - Smokeless tobacco: Never Used - Alcohol use No Prior to Admission Medications Prescriptions Last Dose Informant Patient Reported? Taking? OXYGEN, HOME THERAPY, Unknown at Unknown time Yes Yes Sig: Inhale 2.5 L/min as instructed continuous. 3 L/min when leaves home. albuterol (PROVENTIL) 5 mg/mL nebu No No Sig: Inhale 0.5 mL as instructed one time only for 1 dose. 1 DOSE NOW - BACK OFFICE. PLACE 0.5 ML PER DROPPER AND 2.5 ML OF NORMAL SALINE INTO RESERVOIR. Patient not taking: Reported on 01/26/2018 apixaban (ELIQUIS) 5 mg tab(s) 01/27/2018 at 0800 Yes Yes Sig: Take 5 mg by mouth twice daily. bacitracin (ANTIBIOTIC, BACITRACIN ZINC,) ointment 01/27/2018 at Unknown time No Yes Sig: Apply 1 application to affected area twice daily. furosemide (LASIX) 40 mg tablet 01/27/2018 at 0800 Yes Yes Sig: Take 80 mg by mouth twice daily. gabapentin (NEURONTIN) 300 mg capsule No No Sig: Take 2 capsules by mouth three times daily for 30 days. Patient taking differently: Take 600 mg by mouth twice daily. gabapentin (NEURONTIN) 300 mg capsule 01/27/2018 at 0800 Yes Yes Sig: Take 600 mg by mouth twice daily. guaiFENesin-dextromethorphan (ROBITUSSIN DM) 100-10 mg/5 mL syrup Unknown at Unknown time No Yes Sig: Take 5-10 mL by mouth every 6 hours as needed for Cough. insulin aspart U-100 (NOVOLOG FLEXPEN U-100 INSULIN) 100 unit/mL in 01/27/2018 at Unknown time Yes Yes Sig: Inject 12 Units subcutaneously three times daily with meals. insulin glargine (LANTUS SOLOSTAR U-100 INSULIN) 100 unit/mL (3 mL) in 01/27/2018 at 0800 Yes Yes Sig: Inject 50 Units subcutaneously every morning. insulin glargine (LANTUS SOLOSTAR U-100 INSULIN) 100 unit/mL (3 mL) in 01/26/2018 at 2200 Yes Yes Sig: Inject 36 Units subcutaneously daily at bedtime. ipratropium-albuterol (DUONEB) 0.5 mg-3 mg(2.5 mg base)/3 mL nebu Unknown at Unknown time No Yes Sig: Inhale 3 mL as instructed every 4 hours as needed. isosorbide mononitrate ER (IMDUR) 60 mg 24 hr tablet 01/27/2018 at 0800 No Yes Sig: Take 1 tablet by mouth once daily. nitroglycerin sublingual (NITROQUICK) 0.4 mg SL tablet Unknown at Unknown time No Yes Sig: Dissolve 1 tablet under the tongue every 5 minutes as needed. nystatin (NYSTOP) powder Unknown at Unknown time No Yes Sig: Apply 1 application to affected area three times daily. pantoprazole DR (PROTONIX) 40 mg tablet 01/27/2018 at 0800 Yes Yes Sig: Take 40 mg by mouth twice daily. potassium chloride (K-TAB) 10 mEq tablet 01/27/2018 at 0800 Yes Yes Sig: Take 10 mEq by mouth daily with breakfast. simvastatin (ZOCOR) 40 mg tablet 01/27/2018 at 0800 Yes Yes Sig: Take 40 mg by mouth every morning. spironolactone (ALDACTONE) 25 mg tablet 01/27/2018 at 0800 No Yes Sig: Take 1 tablet by mouth once daily. Facility-Administered Medications: None Current hospital medications: insulin lispro injection (rapid acting) (HumaLOG) SUBCUTANEOUS w MEALS AND HS insulin glargine 30 Units injection (long acting) (LANTUS) 30 Units SUBCUTANEOUS DAILY (8 AM) spironolactone 25 mg tab(s) (ALDACTONE) 25 mg ORAL BID 9a/5p furosemide 80 mg injection (LASIX) 80 mg INTRAVENOUS BID 9a/5p gabapentin 600 mg cap(s) (NEURONTIN) 600 mg ORAL BID simvastatin 40 mg tab(s) (ZOCOR) 40 mg ORAL AT BEDTIME ipratropium-albuterol 3 mL nebulizer solution (DUONEB) 3 mL INHALATION q 4 H PRN apixaban 5 mg tab(s) (ELIQUIS) 5 mg ORAL BID insulin glargine 40 Units injection (long acting) (LANTUS) 40 Units SUBCUTANEOUS AT BEDTIME pantoprazole DR 40 mg tab(s) (PROTONIX) 40 mg ORAL BID bacitracin 1 application topical ointment 1 application TOPICAL BID isosorbide mononitrate ER 60 mg tab(s) (IMDUR) 60 mg ORAL DAILY 0.9% NaCl 3-5 mL 3-5 mL INTRAVENOUS q 12 H dextrose 40 % 15 g 15 g ORAL PRN glucagon 1 mg injection (GLUCAGEN) 1 mg INTRAMUSCULAR PRN dextrose 50% in water 25 mL syringe 12.5 g INTRAVENOUS PRN insulin lispro 12 Units injection (rapid acting) (HumaLOG) 12 Units SUBCUTANEOUS w MEALS miconazole 2 % 1 application topical powder (LOTRIMIN AF, DESENEX) 1 application TOPICAL BID ALLERGIES Allergen Reactions - Aspirin Other: See Comments Patient states that she bled out every orifice, sts not allowed to take it at all. Patient states she was bleeding out of nose and mouth after one dose. - Bactrim [Sulfametho* Other: See Comments My throat swells up. - Latex Rash, Itching Itching and welts. No wheezing or shortness of breath. - Penicillins Rash, Itching Tolerated ceftriaxone during 11/2017 admission and cefepime during 12/2017 admission - Tetracycline Rash, GI Upset Emesis and diarrhea. - Atorvastatin Rash - Codeine Other: See Comments Numbness - Dilaudid [Hydromorp* Mental Status Change - Meperidine - Pentazocine - Pioglitazone Unknown - Propoxyphene CARDIAC STATUS: Chest Pain: Denies Dyspnea: Dyspnea at rest Ankle Edema: Pitting, +2 bilateral to ankles Arrhythmia: Negative, Patient denies palpitations, lightheadedness, dizziness, syncope or near syncope. Functional Capacity: Average Activity includes Sedentary REVIEW OF SYSTEMS: The following systems were reviewed with the patient, and are unremarkable other than as described below. SYSTEMIC: No fever, chills, or change in weight or appetite HEENT: No recent change in vision or hearing. CARDIOVASCULAR: No murmur, gallop. Denies chest pain or palpitations. GI: No recent nausea, vomiting or diarrhea. : No recent hematuria or dysuria. SKIN: No recent itching or eruption. PSYCH: No recent active anxiety or depression. HEMATOLOGY/ONCOLOGY: No recent diagnosis of bleeding or cancer. ENDOCRINE: No recent polyuria or heat intolerance. NEURO: No recent TIA, stroke or seizures. RHEUMATOLOGY: No recent active connective tissue disease. Objective PHYSICAL EXAM: Pleasant, comfortable, not in acute distress. Awake, alert, oriented times 3. Moves all extremities. SKIN: No rash or lumps. HEENT: Normocephalic, face symmetrical. NECK: JVD, 15 cm in height, No carotid bruits, Carotid pulse normal contour, Supple LUNGS: decreased breath sounds bilaterally CARDIAC: PMI present, RRR, S1 and S2, no S3 or S4, no additional heart sounds or murmurs. ABDOMEN: Soft, nontender, bowel sounds present. EXTREMITIES: No edema. PULSES: Peripheral pulses present. Body mass index is 32.72 kg/(m2). O2 Therapy: Nasal Cannula No Data Recorded Patient Vitals for the past 48 hrs: BP Temp Temp src Pulse Resp SpO2 Height Weight 01/28/18 2347 126/58 36.4 ?C (97.5 ?F) Oral 64 16 95 % - - 01/28/18 1936 127/64 36.7 ?C (98.1 ?F) Oral 64 16 97 % - - 01/28/18 1603 107/91 36.5 ?C (97.7 ?F) Oral 64 20 98 % - - 01/28/18 1107 123/57 36.5 ?C (97.7 ?F) Oral 63 18 97 % - - 01/28/18 0837 - - - 66 20 - - - 01/28/18 0828 - - - 65 20 99 % - - 01/28/18 0724 135/67 36.4 ?C (97.5 ?F) Oral 64 18 95 % - - 01/28/18 0600 - - - - - - - 103 kg (227 lb) 01/28/18 0305 (!) 112/49 36.4 ?C (97.5 ?F) Oral 60 18 98 % - - 01/28/18 0135 (!) 115/44 36.3 ?C (97.3 ?F) Oral 63 18 96 % - - 01/27/18 2302 143/61 - - 64 - - - - 01/27/18 2221 - - - 62 20 - - - 01/27/18 2210 - - - 60 20 100 % - - 01/27/182014 128/72 36.9 ?C (98.4 ?F) Oral 64 20 98 % - - 01/27/18 1908 139/65 - - 80 - 97 % - - 01/27/18 1729 140/66 36.6 ?C (97.8 ?F) Oral 64 20 95 % - - 01/27/18 1620 138/62 - - 60 16 98 % - - 01/27/18 1440 123/53 36.9 ?C (98.4 ?F) Oral 62 19 (!) 93 % 172.7 cm (5' 8) 105.2 kg (232 lb) DATA: Diagnostic tests reviewed for today's visit: Most recent labs Most recent imaging Most recent EKG Past 72 Hour Labs: Recent Labs 01/28/18 0455 01/27/18 1515 CK -- -- 49 TROPT 0.076* < > -- WBC 5.97 -- 7.63 RBC 3.91 -- 3.93 HB 12.1 -- 12.1 HCT 38.1 -- 38.6 MCV 97.4 -- 98.2 MCH 30.9 -- 30.8 MCHC 31.8 -- 31.3 RDWCV 15.1* -- 15.3* PLT 150 -- 165 MPV 9.8 -- 9.7 NEUTP -- -- 70.0 LYMPHP -- -- 19.0 MONOP -- -- 9.4 EODINP -- -- 1.2 BASOP -- -- 0.4 ABSNEUT -- -- 5.34 ABSMONO -- -- 0.72 ABSEOSIN -- -- 0.09 ABSBASO -- -- 0.03 GLUC 208* < > 423* BUN 49* < > 49* CREAT 1.64* < > 1.56* NA 141 < > 138 K 4.6 < > 4.7 CHLOR 96* < > 96* CO2 34* < > 32* TPROT 6.3 -- 6.6 ALB 3.4* -- 3.3* CA 9.0 < > 8.6 ALKPHOS 96 -- 105 TBILI 0.5 -- 0.4 AST 22 -- 19 ALT 25 -- 26 PTSEC -- -- 10.1 APTT -- -- 25.0 INR -- -- 1.0 MG -- -- 2.1 < > = values in this interval not displayed. Last Lab Drawn: TSH 1.300 2010 Triglyceride 137 05/17/2017 HDL Cholesterol 34 05/17/2017 LDL Cholesterol 84 05/17/2017 Cholesterol, Total 145 05/17/2017 SIGNATURE:Clay Garcia, DO, FACC, FCCP, FACOI. PATIENT NAME: Luz Baca DATE: January 29, 2018 TIME: 1010 PAGER/CONTACT #: Peyman Guerrero MD 01/29/2018 1:11 PM Signed DEPARTMENT OF HOSPITAL MEDICINE PROGRESS NOTE SERVICE DATE: 01/29/2018 SERVICE TIME: 1:07 PM Hospital Medicine/Primary Attending: Peyman Guerrero MD NIGHT AND WEEKEND COVERAGE: Nights: Please contact pager [phone]. Subjective Subjective Chest pain has improved, less short of breath Report watery diarrhea since this morning, 5 times along with abdominal cramping Stable vitals MEDICATIONS: Reviewed Objective Physical Exam Performed Objective: Vital signs: (most recent): Blood pressure (!) 128/46, pulse 67, temperature 36.4 ?C (97.5 ?F), temperature source Oral, resp. rate 16, height 172.7 cm (5' 8), weight 97.6 kg (215 lb 3.2 oz), SpO2 99 %. Lines, Drains, and Airways Line Peripheral 01/27/18 1516 Left Antecubital 20 Gauge 1 day Drain Indwelling Urinary Catheter 01/28/18 1130 Assessment Goodson 16 Fr 1 day Reviewed lines, drains, airways. Will discuss with nurse and discontinue at discharge 01/29/18 0408 01/29/18 0600 01/29/18 0742 01/29/18 1117 BP: (!) 122/49 119/65 (!) 128/46 Pulse: 68 64 67 Resp: 16 18 16 Temp: 36.5 ?C (97.7 ?F) 36.3 ?C (97.3 ?F) 36.4 ?C (97.5 ?F) TempSrc: Oral Oral Oral SpO2: 94% 97% 99% Weight: 97.6 kg (215 lb 3.2 oz) Height: PHYSICAL EXAMINATION General: Alert and oriented, no distress, pleasant and cooperative. Heart: Regular, normal S1 and S2, no murmurs, rubs, or gallops Lungs: Clear to auscultation bilaterally Abdomen: Benign Extremities: Feet/ankles without edema, posterior tibial pulses full and symmetrical DATA: Diagnostic tests reviewed for today's visit: Most recent labs and imaging results. CBC, Coags, BMP, Mg, Phos Recent Labs 01/29/18 0415 01/28/18 0455 01/27/18 2149 01/27/18 1515 WBC 7.29 5.97 -- 7.63 HB 11.3* 12.1 -- 12.1 HCT 33.7* 38.1 -- 38.6 PLT 142* 150 -- 165 INR -- -- -- 1.0 APTT -- -- -- 25.0 NA 138 141 132* 138 K 5.3* 4.6 5.0 4.7 CHLOR 97 96* 89* 96* CO2 32* 34* 27 32* BUN 50* 49* 49* 49* CREAT 1.66* 1.64* 1.59* 1.56* GLUC 210* 208* 507* 423* CA 8.7 9.0 8.5 8.6 MG -- -- -- 2.1 Assessment/Plan Principal Problem: Chest pain in adult ? ? HS trop 55, repeat 56 which is similar to readings at previous admission likely from CKD. Pt had external stress test 07/2017: no evidence of ischemia. Troponin 0.050 to 0.059 to 0.076, monitor on tele. Cards consulted. F/u recs - Chronic combined systolic and diastolic CHF (congestive heart failure) (HCC) ? ? Pt was just hospitalized for CHF exacerbation from 01/20/18-01/23/18. BNP 1300 improved from 2145 from last admit. Bu still believe she is volume overloaded Increased lasix to 80 mg BID IV, continue aldactone Watch for any volume contraction given new diarrhea - Atrial fibrillation (HCC) ? ? On eliquis. S/p pacemaker. Monitor on tele. - Pacemaker ? ? Had recent device interrogation 12/2017. - CAD (coronary artery disease) ? ? CABGx2 (DEBORAH-LAD, SVG-PDA ) in 2003 - Uncontrolled type 2 diabetes mellitus with stage 3 chronic kidney disease, with long-term current use of insulin (HCC) ? ? HbA1c: 12.0. Endocrinology saw pt during recent hospitalization. Continue recc lantus and humalog dosing. - Essential hypertension ? ? Stable, continue home meds. ? - Sleep apnea ? ? Wears CPAP at home, continue. Acute diarrhea- new, check for C diff. Monitor the fluid status. Contact isolation for now. VTE Prophylaxis: Patient is already anti-coagulated. Disposition: Home Plan of care discussed with: Patient and RN SIGNATURE: Peyman Guerrero MD PATIENT NAME: Luz Baca DATE: January 29, 2018 TIME: 1:10 PM PAGER/CONTACT #: [phone] Som Feliciano MD 01/29/2018 5:04 PM Signed Component Latest Ref Rng AND Units 01/28/2018 01/28/2018 01/28/2018 01/28/2018 01/29/2018 01/29/2018 01/29/2018 7:29 AM 11:44 AM 5:43 PM 8:03 PM 7:44 AM 11:58 AM 4:16 PM Glucose, Point of Care 74 - 99 mg/dL 187 (A) 360 (A) 220 (A) 159 (A) 206 (A) 192 (A) 160 (A) Uncontrolled DM-2 with complications on Insulin: On Lantus 30 units AM and 40 units HS, Humalog 12 uints with each meals plus sliding scale. AM reading is still above 200. Plan: go up on HS dose of Lantus to 44 units. Monitor blood sugar. Call endo ux information architect if blood sugar <80 or >210. Som Feliciano MD January 29, 2018 Sohail Hernandez, RN, RN 01/30/2018 3:38 AM Addendum Nursing Progress Note Patient Name: Luz Baca Patient Location: [id number] Daily Note:01/29/182025 Spoke with Dr. Feliciano regarding blood sugar of 283, orders received to give scheduled Lantus and Humalog, recheck blood sugar around 2300. [address] Ortiz regarding pt having sharp, midsternal chest pain. Orders received, see eMAR, [address] Ortiz regarding EKG results 2254 Pt reporting little relief of pain with Tyleol. Paged hospitalist [phone] Dr. Ortiz at bedside, verbals orders received This note was completed by: Sohail eHrnandez, ALLYSON Previous Version CHARLOTTE LEARY, ALLYSON, RN 01/30/2018 6:33 PM Signed Nursing Progress Note Patient Name: Luz Baca [place] [facility] [id number] Daily Note:0736: Pt reporting pain 5/10 to the chest. It is not mid-sternal pain, and she describes it as a dull pain to the areas where the shift production supervisor hospitalist pushed on overnight. She was prescribed a 1x dose of oxycodone 10mg PO at approximately 2310 last PM for the same type of pain, and the shift production supervisor RN has explained that the patient never grew SOB or showed SANDS of dyspnea at that time. Current finding correlate with that being the patient is comfortably able to speak, rating/describing her pain with efficacy and ease. Hospitalist has been paged to address findings since the oxycodone was a 1x dose last PM. This note was completed by: ALLYSON ANDERSON MD 01/30/2018 12:19 PM Signed DEPARTMENT OF HOSPITAL MEDICINE PROGRESS NOTE SERVICE DATE: 01/30/2018 SERVICE TIME: 12:10 PM Hospital Medicine/Primary Attending: Peyman Guerrero MD NIGHT AND WEEKEND COVERAGE: Nights: Please contact pager [phone]. Subjective Subjective Patient is still c/o intermittent sharp chest pains, very short period SOB is improving Resolved diarrhea along with abdominal cramping Stable vitals Cr got worse from 1.66 to 1.99, likely from overdiuresis MEDICATIONS: Reviewed Objective Physical Exam Performed Objective: Vital signs: (most recent): Blood pressure 122/52, pulse 61, temperature 36.7 ?C (98.1 ?F), temperature source Oral, resp. rate 19, height 172.7 cm (5' 8), weight 97.5 kg (214 lb 15.2 oz), SpO2 94 %. Lines, Drains, and Airways Line Peripheral 01/29/18 1741 Short Right Wrist 22 Gauge less than 1 day Drain Indwelling Urinary Catheter 01/28/18 1130 Assessment Goodson 16 Fr 2 days Reviewed lines, drains, airways. Will discuss with nurse and discontinue at discharge 01/30/18 0353 01/30/18 0600 01/30/18 0741 01/30/18 1115 BP: 99/56 122/52 122/52 Pulse: 60 64 61 Resp: 18 18 19 Temp: 36.7 ?C (98.1 ?F) TempSrc: Oral Oral Oral SpO2: 97% 96% 94% Weight: 97.5 kg (214 lb 15.2 oz) Height: PHYSICAL EXAMINATION General: Alert and oriented, no distress, pleasant and cooperative. Heart: Regular, normal S1 and S2, no murmurs, rubs, or gallops Lungs: Clear to auscultation bilaterally Abdomen: Benign Extremities: Feet/ankles without edema, posterior tibial pulses full and symmetrical DATA: Diagnostic tests reviewed for today's visit: Most recent labs and imaging results. CBC, Coags, BMP, Mg, Phos Recent Labs 01/30/18 0431 01/29/18 0415 01/28/18 0455 01/27/18 1515 WBC 8.64 7.29 5.97 -- 7.63 HB 11.8 11.3* 12.1 -- 12.1 HCT 37.3 33.7* 38.1 -- 38.6 PLT 153 142* 150 -- 165 INR -- -- -- -- 1.0 APTT -- -- -- -- 25.0 NA 136 138 141 < > 138 K 4.3 5.3* 4.6 < > 4.7 CHLOR 96* 97 96* < > 96* CO2 30 32* 34* < > 32* BUN 52* 50* 49* < > 49* CREAT 1.99* 1.66* 1.64* < > 1.56* GLUC 151* 210* 208* < > 423* CA 9.1 8.7 9.0 < > 8.6 MG -- -- -- -- 2.1 < > = values in this interval not displayed. Assessment/Plan Principal Problem: Chest pain in adult ? ? HS trop 55, repeat 56 which is similar to readings at previous admission likely from CKD. Pt had external stress test 07/2017: no evidence of ischemia. Troponin 0.050 to 0.059 to 0.076, monitor on tele. Cards consulted. F/u recs - Chronic combined systolic and diastolic CHF (congestive heart failure) (HCC) ? ? Pt was just hospitalized for CHF exacerbation from 01/20/18-01/23/18. BNP 1300 improved from 2145 from last admit. But still believe her symptoms related to volume overloaded Increased lasix to 80 mg BID IV and aldactone BID Cr got worse likely from volume loss from diarrhea and high dose of diurectics Would decrease lasix to 60 mg BID, diarrhea resolved, monitor cr, f/u cards recs - Atrial fibrillation (HCC) ? ? On eliquis. S/p pacemaker. Monitor on tele. - Pacemaker ? ? Had recent device interrogation 12/2017. - CAD (coronary artery disease) ? ? CABGx2 (DEBORAH-LAD, SVG-PDA ) in 2004 - Uncontrolled type 2 diabetes mellitus with stage 3 chronic kidney disease, with long-term current use of insulin (HCC) ? ? HbA1c: 12.0. Endocrinology consulted. On Lantus 30 units AM and 40 units HS, Humalog 12 uints with each meals plus sliding scale. Increased HS dose of Lantus to 44 units. Fasting sugars are improving - Essential hypertension ? ? Stable, continue home meds. ? - Sleep apnea ? ? Wears CPAP at home, continue. Acute diarrhea- resolved, pending C diff. Contact isolation for now. VTE Prophylaxis: Patient is already anti-coagulated. Disposition: Home Plan of care discussed with: Patient and RN SIGNATURE: Peyman Guerrero MD PATIENT NAME: Luz Baca DATE: January 30, 2018 TIME: 12:19 PM PAGER/CONTACT #: [phone] Clay Garcia DO 01/30/2018 12:24 PM Signed 01/30/2018 CONSULT PROGRESS NOTE SERVICE TIME: 0910 ASSESSMENT AND PLAN 1. ASHD - CABGx3 2003, PCIx6 RCA 2013, PCIx3 2014 2. HCM - septal myectomy 2003 3. CHF - acute on chronic diastolic, DAMION-I/ARB intolerance (CRF) 4. Cardiomyopathy - ischemic, ICD 2015, revised 11/2016, beta lenny intolerance 5. HTN 6. DM 7. HLN 8. MARLA - unable to tolerate CPAP 9. PAF- anticoagulated with apixaban 10. CKD She is able to lay flat without SOB and suspect her CHF is minimal now especially with diarhea even though she did not have a great diuresis. Can start to change to PO diuretics Will see as needed and pleas call if any questions. She will follow with Dr. Michael Cardona in [place] for Cardiology SIGNATURE: Clay Garcia DO, FACC, FCCP, FACOI. PATIENT NAME: Luz Baca DATE: January 30, 2018 TIME: 1010 PAGER: [phone] CONSULT PROGRESS NOTE: CARDIOLOGY SERVICE PCP: Jameson Kamara MD ATTENDING: Peyman Guerrero REASON FOR CONSULT: Shortness of Breath Subjective HISTORY OF PRESENT ILLNESS: This is a 77 year old female with PMHx of HOCM s/p myectomy, chronic AF on eliquis, s/p pacemaker, CAD s/p multiple stents and CABG, CKD stage III, DMII, HTN, HLD, COPD (2L O2 continuous), who presents with CP that started around 5am today. Pain is intermitent and episodes last about 5 minutes, midsternal and around pacemaker without radiation, sharp and stabbing. Associated SOB worse than baseline. Denies n/v/d/f/c, diaphoresis. ? Pt was just hospitalized for CHF exacerbation from 01/20/18-01/23/18. ? HStrop 55, repeat 56 which is similar to readings at previous admission likely from CKD. BNP 1300 improved from 2145 from last admit. CKD: BUN 49, Cr 1.56 which is baseline. EKG paced rhythm. ? Pt had external stress test 07/2017: no evidence of ischemia. Pt had device interrogation last month. PAST MEDICAL HISTORY Diagnosis Date - Arthritis - Atrial fibrillation (HCC) - CAD (coronary artery disease) stents x9, defibrillator, CABG. Seeing Dr. Cardona - Cardiac defibrillator in place - Cardiomegaly - Carotid artery disease ([facility]) left - CKD (chronic kidney disease), stage IV ([facility]) Dr. Martin - COPD (chronic obstructive pulmonary disease) ([facility]) Dr. Cruz - Depression - Diabetes ([facility]) - Diabetic neuropathy ([facility]) - GERD (gastroesophageal reflux disease) - Gout - HH (hiatus hernia) - HH (hiatus hernia) - HOCM (hypertrophic obstructive cardiomyopathy) ([facility]) - HOCM (hypertrophic obstructive cardiomyopathy) ([facility]) S/P Septal Myectomy in 2003. Echo 09/23/10 shows no visable GABRIEL. LVOT gradient is 8mmHg. - HTN (hypertension) - Hyperlipidemia - Morbid obesity with BMI of 40.0-44.9, adult ([facility]) - Pacemaker - Pneumonia h/o pneumonia/bronchitis - Renal insufficiency 2003 post op - Sleep apnea 2011 not on CPAP, unable to tolerate mask 02/2017 - SVT (supraventricular tachycardia) ([facility]) NSVT and questionable VT in 2003 post op PAST SURGICAL HISTORY Procedure Laterality Date - PAST SURGICAL HISTORY OF 07/18/2004 Septal myectomy and CABG x2 (DEBORAH-LAD, SVG-PDA). - PAST SURGICAL HISTORY OF left breast nodule removed - PAST SURGICAL HISTORY OF hysterectomy - PAST SURGICAL HISTORY OF perianal abscess drained - PAST SURGICAL HISTORY OF cholecystectomy - PAST SURGICAL HISTORY OF skin lesions removed FAMILY HISTORY Problem Relation Age of Onset - Hypertension Mother living at age 93, HTN - Heart Failure Mother [place] - Cancer Father age 71, lung cancer Social History Substance Use Topics - Smoking status: Former Smoker Packs/day: 2.50 Years: 43.00 Types: Cigarettes Start date: 1961 Quit date: 07/07/2004 - Smokeless tobacco: Never Used - Alcohol use No Prior to Admission Medications Prescriptions Last Dose Informant Patient Reported? Taking? OXYGEN, HOME THERAPY, Unknown at Unknown time Yes Yes Sig: Inhale 2.5 L/min as instructed continuous. 3 L/min when leaves home. albuterol (PROVENTIL) 5 mg/mL nebu No No Sig: Inhale 0.5 mL as instructed one time only for 1 dose. 1 DOSE NOW - BACK OFFICE. PLACE 0.5 ML PER DROPPER AND 2.5 ML OF NORMAL SALINE INTO RESERVOIR. Patient not taking: Reported on 01/26/2018 apixaban (ELIQUIS) 5 mg tab(s) 01/27/2018 at 0800 Yes Yes Sig: Take 5 mg by mouth twice daily. bacitracin (ANTIBIOTIC, BACITRACIN ZINC,) ointment 01/27/2018 at Unknown time No Yes Sig: Apply 1 application to affected area twice daily. furosemide (LASIX) 40 mg tablet 01/27/2018 at 0800 Yes Yes Sig: Take 80 mg by mouth twice daily. gabapentin (NEURONTIN) 300 mg capsule No No Sig: Take 2 capsules by mouth three times daily for 30 days. Patient taking differently: Take 600 mg by mouth twice daily. gabapentin (NEURONTIN) 300 mg capsule 01/27/2018 at 0800 Yes Yes Sig: Take 600 mg by mouth twice daily. guaiFENesin-dextromethorphan (ROBITUSSIN DM) 100-10 mg/5 mL syrup Unknown at Unknown time No Yes Sig: Take 5-10 mL by mouth every 6 hours as needed for Cough. insulin aspart U-100 (NOVOLOG FLEXPEN U-100 INSULIN) 100 unit/mL inpn 01/27/2018 at Unknown time Yes Yes Sig: Inject 12 Units subcutaneously three times daily with meals. insulin glargine (LANTUS SOLOSTAR U-100 INSULIN) 100 unit/mL (3 mL) in 01/27/2018 at 0800 Yes Yes Sig: Inject 50 Units subcutaneously every morning. insulin glargine (LANTUS SOLOSTAR U-100 INSULIN) 100 unit/mL (3 mL) in 01/26/2018 at 2200 Yes Yes Sig: Inject 36 Units subcutaneously daily at bedtime. ipratropium-albuterol (DUONEB) 0.5 mg-3 mg(2.5 mg base)/3 mL nebu Unknown at Unknown time No Yes Sig: Inhale 3 mL as instructed every 4 hours as needed. isosorbide mononitrate ER (IMDUR) 60 mg 24 hr tablet 01/27/2018 at 0800 No Yes Sig: Take 1 tablet by mouth once daily. nitroglycerin sublingual (NITROQUICK) 0.4 mg SL tablet Unknown at Unknown time No Yes Sig: Dissolve 1 tablet under the tongue every 5 minutes as needed. nystatin (NYSTOP) powder Unknown at Unknown time No Yes Sig: Apply 1 application to affected area three times daily. pantoprazole DR (PROTONIX) 40 mg tablet 01/27/2018 at 0800 Yes Yes Sig: Take 40 mg by mouth twice daily. potassium chloride (K-TAB) 10 mEq tablet 01/27/2018 at 0800 Yes Yes Sig: Take 10 mEq by mouth daily with breakfast. simvastatin (ZOCOR) 40 mg tablet 01/27/2018 at 0800 Yes Yes Sig: Take 40 mg by mouth every morning. spironolactone (ALDACTONE) 25 mg tablet 01/27/2018 at 0800 No Yes Sig: Take 1 tablet by mouth once daily. Facility-Administered Medications: None Current hospital medications: insulin glargine 44 Units injection (long acting) (LANTUS) 44 Units SUBCUTANEOUS AT BEDTIME acetaminophen 650 mg tab(s) (TYLENOL) 650 mg ORAL q 6 H PRN insulin lispro injection (rapid acting) (HumaLOG) SUBCUTANEOUS w MEALS AND HS insulin glargine 30 Units injection (long acting) (LANTUS) 30 Units SUBCUTANEOUS DAILY (8 AM) spironolactone 25 mg tab(s) (ALDACTONE) 25 mg ORAL BID 9a/5p furosemide 80 mg injection (LASIX) 80 mg INTRAVENOUS BID 9a/5p gabapentin 600 mg cap(s) (NEURONTIN) 600 mg ORAL BID simvastatin 40 mg tab(s) (ZOCOR) 40 mg ORAL AT BEDTIME ipratropium-albuterol 3 mL nebulizer solution (DUONEB) 3 mL INHALATION q 4 H PRN apixaban 5 mg tab(s) (ELIQUIS) 5 mg ORAL BID pantoprazole DR 40 mg tab(s) (PROTONIX) 40 mg ORAL BID bacitracin 1 application topical ointment 1 application TOPICAL BID isosorbide mononitrate ER 60 mg tab(s) (IMDUR) 60 mg ORAL DAILY 0.9% NaCl 3-5 mL 3-5 mL INTRAVENOUS q 12 H dextrose 40 % 15 g 15 g ORAL PRN glucagon 1 mg injection (GLUCAGEN) 1 mg INTRAMUSCULAR PRN dextrose 50% in water 25 mL syringe 12.5 g INTRAVENOUS PRN insulin lispro 12 Units injection (rapid acting) (HumaLOG) 12 Units SUBCUTANEOUS w MEALS miconazole 2 % 1 application topical powder (LOTRIMIN AF, DESENEX) 1 application TOPICAL BID ALLERGIES Allergen Reactions - Aspirin Other: See Comments Patient states that she bled out every orifice, sts not allowed to take it at all. Patient states she was bleeding out of nose and mouth after one dose. - Bactrim [Sulfametho* Other: See Comments My throat swells up. - Latex Rash, Itching Itching and welts. No wheezing or shortness of breath. - Penicillins Rash, Itching Tolerated ceftriaxone during 11/2017 admission and cefepime during 12/2017 admission - Tetracycline Rash, GI Upset Emesis and diarrhea. - Atorvastatin Rash - Codeine Other: See Comments Numbness - Dilaudid [Hydromorp* Mental Status Change - Meperidine - Pentazocine - Pioglitazone Unknown - Propoxyphene CARDIAC STATUS: Chest Pain: Denies Dyspnea: Dyspnea at rest Ankle Edema: Pitting, +2 bilateral to ankles Arrhythmia: Negative, Patient denies palpitations, lightheadedness, dizziness, syncope or near syncope. Functional Capacity: Average Activity includes Sedentary REVIEW OF SYSTEMS: The following systems were reviewed with the patient, and are unremarkable other than as described below. SYSTEMIC: No fever, chills, or change in weight or appetite HEENT: No recent change in vision or hearing. CARDIOVASCULAR: No murmur, gallop. Denies chest pain or palpitations. GI: No recent nausea, vomiting or diarrhea. : No recent hematuria or dysuria. SKIN: No recent itching or eruption. PSYCH: No recent active anxiety or depression. HEMATOLOGY/ONCOLOGY: No recent diagnosis of bleeding or cancer. ENDOCRINE: No recent polyuria or heat intolerance. NEURO: No recent TIA, stroke or seizures. RHEUMATOLOGY: No recent active connective tissue disease. Objective PHYSICAL EXAM: Pleasant, comfortable, not in acute distress. Awake, alert, oriented times 3. Moves all extremities. SKIN: No rash or lumps. HEENT: Normocephalic, face symmetrical. NECK: JVD, 15 cm in height, No carotid bruits, Carotid pulse normal contour, Supple LUNGS: decreased breath sounds bilaterally CARDIAC: PMI present, RRR, S1 and S2, no S3 or S4, no additional heart sounds or murmurs. ABDOMEN: Soft, nontender, bowel sounds present. EXTREMITIES: No edema. PULSES: Peripheral pulses present. Body mass index is 32.68 kg/(m2). O2 Therapy: Nasal Cannula No Data Recorded Patient Vitals for the past 48 hrs: BP Temp Temp src Pulse Resp SpO2 Height Weight 01/28/18 2347 126/58 36.4 ?C (97.5 ?F) Oral 64 16 95 % - - 01/28/18 1936 127/64 36.7 ?C (98.1 ?F) Oral 64 16 97 % - - 01/28/18 1603 107/91 36.5 ?C (97.7 ?F) Oral 64 20 98 % - - 01/28/18 1107 123/57 36.5 ?C (97.7 ?F) Oral 63 18 97 % - - 01/28/18 0837 - - - 66 20 - - - 01/28/18 0828 - - - 65 20 99 % - - 01/28/18 0724 135/67 36.4 ?C (97.5 ?F) Oral 64 18 95 % - - 01/28/18 0600 - - - - - - - 103 kg (227 lb) 01/28/18 0305 (!) 112/49 36.4 ?C (97.5 ?F) Oral 60 18 98 % - - 01/28/18 0135 (!) 115/44 36.3 ?C (97.3 ?F) Oral 63 18 96 % - - 01/27/18 2302 143/61 - - 64 - - - - 01/27/181 - - - 62 20 - - - 01/27/180 - - - 60 20 100 % - - 01/27/182014 128/72 36.9 ?C (98.4 ?F) Oral 64 20 98 % - - 01/27/18 1908 139/65 - - 80 - 97 % - - 01/27/18 1729 140/66 36.6 ?C (97.8 ?F) Oral 64 20 95 % - - 01/27/18 1620 138/62 - - 60 16 98 % - - 01/27/18 1440 123/53 36.9 ?C (98.4 ?F) Oral 62 19 (!) 93 % 172.7 cm (5' 8) 105.2 kg (232 lb) DATA: Diagnostic tests reviewed for today's visit: Most recent labs Most recent imaging Most recent EKG Past 72 Hour Labs: Recent Labs 01/28/18 0455 01/27/18 1515 CK -- -- 49 TROPT 0.076* < > -- WBC 5.97 -- 7.63 RBC 3.91 -- 3.93 HB 12.1 -- 12.1 HCT 38.1 -- 38.6 MCV 97.4 -- 98.2 MCH 30.9 -- 30.8 MCHC 31.8 -- 31.3 RDWCV 15.1* -- 15.3* PLT 150 -- 165 MPV 9.8 -- 9.7 NEUTP -- -- 70.0 LYMPHP -- -- 19.0 MONOP -- -- 9.4 EODINP -- -- 1.2 BASOP -- -- 0.4 ABSNEUT -- -- 5.34 ABSMONO -- -- 0.72 ABSEOSIN -- -- 0.09 ABSBASO -- -- 0.03 GLUC 208* < > 423* BUN 49* < > 49* CREAT 1.64* < > 1.56* NA 141 < > 138 K 4.6 < > 4.7 CHLOR 96* < > 96* CO2 34* < > 32* TPROT 6.3 -- 6.6 ALB 3.4* -- 3.3* CA 9.0 < > 8.6 ALKPHOS 96 -- 105 TBILI 0.5 -- 0.4 AST 22 -- 19 ALT 25 -- 26 PTSEC -- -- 10.1 APTT -- -- 25.0 INR -- -- 1.0 MG -- -- 2.1 < > = values in this interval not displayed. Last Lab Drawn: TSH 1.300 2010 Triglyceride 137 05/17/2017 HDL Cholesterol 34 05/17/2017 LDL Cholesterol 84 05/17/2017 Cholesterol, Total 145 05/17/2017 SIGNATURE:Clay Garcia, DO, FACC, FCCP, FACOI. PATIENT NAME: Luz Baca DATE: January 30, 2018 TIME: 0910 PAGER/CONTACT #: Sohail Hernandez, RN, RN 01/31/2018 6:26 AM Addendum Nursing Progress Note Patient Name: Luz Baca Patient [place] [facility] [id number] Daily Note:01/30/[address] Feliciano regarding pt blood sugar, orders to give scheduled Lantus and Humalog. [address] Feliciano regarding pt blood sugars, no new orders. This note was completed by: Sohail Hernandez, ALLYSON Previous Version Reanna Davalos, RN, RN 01/31/2018 7:26 PM Addendum Nursing Progress Note Patient Name: Luz Baca Patient Location: [id number] Daily Note: Pt AANDO x 3, cooperative. C-dif precautions posted. Pt had sm formed stool early this a.m., only 2 stools on admission. Physician called and pt taken off precautions. Pt up to bathroom and bath given by Latia, Student Nurse. Lungs with crackles in left base, resp even and nonlabored on room air. Abd soft, nontender, BS + x 4. #22 rt wrist capped. Tele V-paced HR 77. Goodson cath draining yellow urine. Accu check completed and Dr Feliciano called. Insulin given. Physician called re. Diuretics and BUN/Cr levels. Order rec'd to hold medication. IV Lasix changed to po and will continue restart tomorrow. Order rec'd to discontinued goodson catheter. 1100 Pt sleeping in bed. 1930 Pt states she feel nauseated. Blood glucose checked and text sent to hospitalist for zofran. Pt AANDO x 3, aiden-gurwinder and blue bag given along with soda crackers. This note was completed by: Reanna Davalos RN Previous Version Vanessa Gonzalez RN, RN 01/31/2018 12:23 PM Signed CARE MANAGEMENT PROGRESS NOTE SERVICE DATE: 01/31/2018 SERVICE TIME: 12:21 PM LOS: 3 days EMR reviewed. Admit Dx Chest Pain. On Chronic 2L n/c. From home with dtr. On Chronic 2.5 LO2 at home. Active with [facility]. PCP Dr. Kamara, any day/time OK for f/u appt. Dtr will transport. SIGNATURE: Vanessa Gonzalez RN PATIENT NAME: Luz Baca DATE: January 31, 2018 TIME: 12:20 PM PAGER/CONTACT #: [phone] Som Feliciano MD 01/31/2018 8:12 PM Signed INITIAL CONSULT ENDOCRINOLOGY SERVICE DATE: 01/31/2018 SERVICE TIME: 6:52 PM Requesting Provider: Radha Adams) Kendal Opinion/Advice Regarding: Management of Diabetes Mellitus Type 2 hyperglycemia Service: Endocrinology Consult Service Subjective HPI: Ms. Luz Baca is a 77 year old female with a 15 year history of Diabetes Mellitus Type 2 hyperglycemia who was admitted on 01/27/2018 for chest pain. Past medical history significant for HOCM s/p myectomy, chronic AF on eliquis, s/p pacemaker, CAD s/p multiple stents and CABG, CKD stage III, DMII, HTN, HLD, COPD (2L O2 continuous), who presents with CP that started around 5am today. Pain is intermitent and episodes last about 5 minutes, midsternal and around pacemaker without radiation, sharp and stabbing. Associated SOB worse than baseline. Denies n/v/d/f/c, diaphoresis. Pt was just hospitalized for CHF exacerbation from 01/20/18-01/23/18. Patient does not exercise. Last HbA1c was 12.0% on 01/26/2018. She has a family history of diabetes in her brother. She is followed by PCP for her diabetes. DIABETIC COMPLICATIONS: Nephropathy: Diabetic chronic kidney disease Neuropathy: Polyneuropathy Cardiology: CABG and CHF Pre-Admission DM Regimen: Preadmission oral agents: None Preadmission insulin regimen: Lantus 50 units Q am and 36 units at HS Humalog 12 units TID and Q AC pen Sliding scale: One unit for every 25 mg/dL Self Monitoring Blood Glucose: Type of Monitor: Does not know brand Frequency of Monitoring: Three times a Day BG Values: 200-400 Hypoglycemia: No PAST MEDICAL HISTORY Diagnosis Date - Arthritis - Atrial fibrillation ([facility]) - CAD (coronary artery disease) stents x9, defibrillator, CABG. Seeing Dr. Cardona - Cardiac defibrillator in place - Cardiomegaly - Carotid artery disease ([facility]) left - CKD (chronic kidney disease), stage IV ([facility]) Dr. Martin - COPD (chronic obstructive pulmonary disease) ([facility]) Dr. Cruz - Depression - Diabetes ([facility]) - Diabetic neuropathy ([facility]) - GERD (gastroesophageal reflux disease) - Gout - HH (hiatus hernia) - HH (hiatus hernia) - HOCM (hypertrophic obstructive cardiomyopathy) ([facility]) - HOCM (hypertrophic obstructive cardiomyopathy) ([facility]) S/P Septal Myectomy in 2003. Echo 09/23/10 shows no visable GABRIEL. LVOT gradient is 8mmHg. - HTN (hypertension) - Hyperlipidemia - Morbid obesity with BMI of 40.0-44.9, adult ([facility]) - Pacemaker - Pneumonia h/o pneumonia/bronchitis - Renal insufficiency 2003 post op - Sleep apnea 2011 not on CPAP, unable to tolerate mask 02/2017 - SVT (supraventricular tachycardia) (HCC) NSVT and questionable VT in 2003 post op PAST SURGICAL HISTORY Procedure Laterality Date - PAST SURGICAL HISTORY OF 07/18/2004 Septal myectomy and CABG x2 (DEBROAH-LAD, SVG-PDA). - PAST SURGICAL HISTORY OF left breast nodule removed - PAST SURGICAL HISTORY OF hysterectomy - PAST SURGICAL HISTORY OF perianal abscess drained - PAST SURGICAL HISTORY OF cholecystectomy - PAST SURGICAL HISTORY OF skin lesions removed FAMILY HISTORY Problem Relation Age of Onset - Hypertension Mother living at age 93, HTN - Heart Failure Mother [place] - Cancer Father age 71, lung cancer Social History Substance Use Topics - Smoking status: Former Smoker Packs/day: 2.50 Years: 43.00 Types: Cigarettes Start date: 1961 Quit date: 07/07/2004 - Smokeless tobacco: Never Used - Alcohol use No MEDICATIONS: Prescriptions Prior to Admission: furosemide (LASIX) 40 mg tablet Take 80 mg by mouth twice daily. Disp: Rfl: 01/27/2018 at 0800 gabapentin (NEURONTIN) 300 mg capsule Take 600 mg by mouth twice daily. Disp: Rfl: 01/27/2018 at 0800 insulin aspart U-100 (NOVOLOG FLEXPEN U-100 INSULIN) 100 unit/mL inpn Inject 12 Units subcutaneously three times daily with meals. Disp: Rfl: 01/27/2018 at Unknown time insulin glargine (LANTUS SOLOSTAR U-100 INSULIN) 100 unit/mL (3 mL) inpn Inject 50 Units subcutaneously every morning. Disp: Rfl: 01/27/2018 at 0800 insulin glargine (LANTUS SOLOSTAR U-100 INSULIN) 100 unit/mL (3 mL) inpn Inject 36 Units subcutaneously daily at bedtime. Disp: Rfl: 01/26/[address] (PROTONIX) 40 mg tablet Take 40 mg by mouth twice daily. Disp: Rfl: 01/27/2018 at 0800 potassium chloride (K-TAB) 10 mEq tablet Take 10 mEq by mouth daily with breakfast. Disp: Rfl: 01/27/2018 at 0800 bacitracin (ANTIBIOTIC, BACITRACIN ZINC,) ointment Apply 1 application to affected area twice daily. Disp: 1 Tube Rfl: 1 01/27/2018 at Unknown time nystatin (NYSTOP) powder Apply 1 application to affected area three times daily. Disp: 60 g Rfl: 2 Unknown at Unknown time isosorbide mononitrate ER (IMDUR) 60 mg 24 hr tablet Take 1 tablet by mouth once daily. Disp: 30 tablet Rfl: 5 01/27/2018 at 0800 apixaban (ELIQUIS) 5 mg tab(s) Take 5 mg by mouth twice daily. Disp: Rfl: 01/27/2018 at 0800 simvastatin (ZOCOR) 40 mg tablet Take 40 mg by mouth every morning. Disp: Rfl: 01/27/2018 at 0800 spironolactone (ALDACTONE) 25 mg tablet Take 1 tablet by mouth once daily. Disp: Rfl: 01/27/2018 at 0800 ipratropium-albuterol (DUONEB) 0.5 mg-3 mg(2.5 mg base)/3 mL nebu Inhale 3 mL as instructed every 4 hours as needed. Disp: 180 Vial Rfl: 3 Unknown at Unknown time guaiFENesin-dextromethorphan (ROBITUSSIN DM) 100-10 mg/5 mL syrup Take 5-10 mL by mouth every 6 hours as needed for Cough. Disp: 118 mL Rfl: 0 Unknown at Unknown time nitroglycerin sublingual (NITROQUICK) 0.4 mg SL tablet Dissolve 1 tablet under the tongue every 5 minutes as needed. Disp: 1 Bottle of 25 Rfl: 0 Unknown at Unknown time OXYGEN, HOME THERAPY, Inhale 2.5 L/min as instructed continuous. 3 L/min when leaves home. Disp: Rfl: Unknown at Unknown time gabapentin (NEURONTIN) 300 mg capsule Take 2 capsules by mouth three times daily for 30 days. (Patient taking differently: Take 600 mg by mouth twice daily. ) Disp: Rfl: 12/09/2017 Current hospital medications: [START ON 02/01/2018] furosemide (LASIX) tab(s) 60 mg 60 mg ORAL BID 9a/5p [START ON 02/01/2018] insulin lispro 15 Units injection (rapid acting) (HumaLOG) 15 Units SUBCUTANEOUS w MEALS insulin glargine 44 Units injection (long acting) (LANTUS) 44 Units SUBCUTANEOUS AT BEDTIME acetaminophen 650 mg tab(s) (TYLENOL) 650 mg ORAL q 6 H PRN insulin lispro injection (rapid acting) (HumaLOG) SUBCUTANEOUS w MEALS AND HS insulin glargine 30 Units injection (long acting) (LANTUS) 30 Units SUBCUTANEOUS DAILY (8 AM) spironolactone 25 mg tab(s) (ALDACTONE) 25 mg ORAL BID 9a/5p gabapentin 600 mg cap(s) (NEURONTIN) 600 mg ORAL BID simvastatin 40 mg tab(s) (ZOCOR) 40 mg ORAL AT BEDTIME ipratropium-albuterol 3 mL nebulizer solution (DUONEB) 3 mL INHALATION q 4 H PRN apixaban 5 mg tab(s) (ELIQUIS) 5 mg ORAL BID pantoprazole DR 40 mg tab(s) (PROTONIX) 40 mg ORAL BID bacitracin 1 application topical ointment 1 application TOPICAL BID isosorbide mononitrate ER 60 mg tab(s) (IMDUR) 60 mg ORAL DAILY 0.9% NaCl 3-5 mL 3-5 mL INTRAVENOUS q 12 H dextrose 40 % 15 g 15 g ORAL PRN glucagon 1 mg injection (GLUCAGEN) 1 mg INTRAMUSCULAR PRN dextrose 50% in water 25 mL syringe 12.5 g INTRAVENOUS PRN miconazole 2 % 1 application topical powder (LOTRIMIN AF, DESENEX) 1 application TOPICAL BID ALLERGIES Allergen Reactions - Aspirin Other: See Comments Patient states that she bled out every orifice, sts not allowed to take it at all. Patient states she was bleeding out of nose and mouth after one dose. - Bactrim [Sulfametho* Other: See Comments My throat swells up. - Latex Rash, Itching Itching and welts. No wheezing or shortness of breath. - Penicillins Rash, Itching Tolerated ceftriaxone during 11/2017 admission and cefepime during 12/2017 admission - Tetracycline Rash, GI Upset Emesis and diarrhea. - Atorvastatin Rash - Codeine Other: See Comments Numbness - Dilaudid [Hydromorp* Mental Status Change - Meperidine - Pentazocine - Pioglitazone Unknown - Propoxyphene COMPLETE REVIEW OF SYSTEMS: WEIGHT: fluctuation due to water weight gain and loss EYES: Normal HYDRATION: No polydypsia or thirst CARDIAC: Dyspnea much better now RESPIRATORY: Negative for cough, wheezing or shortness of breath GI: no nausea, fullness, vomiting, constipation, GI bleeding or heartburn : no dysuria, frequency, hesitancy, hematuria, polyuria or nocturia SKIN: normal MUSCULOSKELETAL: No joint pain, stiffness, swelling, cramping or weakness NERVOUS SYSTEM: numbness of the feet ALL OTHER SYSTEMS: non-contributory Last Eye Exam: 2016 Last Podiatry Exam: January 2018 Objective PHYSICAL EXAM: BP (!) 108/36 Pulse (!) 54 Temp 36.8 ?C (98.2 ?F) (Oral) Resp 20 Ht 172.7 cm (5' 8) Wt 97.9 kg (215 lb 13.3 oz) SpO2 97% BMI 32.82 kg/m2 Body mass index is 32.82 kg/(m2). Appearance: Well appearing, alert, in no acute distress, well- hydrated, well nourished., Obese Eyes: PERRLA, conjunctiva and sclera normal Neck: Supple, no adenopathy; thyroid symmetric, normal size, no bruits Heart: RRR without murmur, gallop, or rubs. No ectopy Lungs Lungs clear to auscultation. No wheezing, rhonchi, rales Abdomen bowel sounds normoactive, no bruits, soft, non-tender, non-distended Extremities: No deformities, edema, skin discoloration, clubbing or cyanosis. Good capillary refill. Neuro: Awake, alert and oriented x 3, No involuntary motions. and Reflexes symmetrical Feet: Shoes and socks removed, No deformities, ulcers, calluses, normal distal pulses and vibratory perception decreased b/l Skin: Color, texture, turgor normal. No rashes or lesions All other systems: non-contributory Laboratory Results: Hemoglobin (g/dL) Date Value 01/31/2018 11.1 Hematocrit (%) Date Value 01/31/2018 35.3 WBC (k/uL) Date Value 01/31/2018 8.37 Platelet Count (k/uL) Date Value 01/31/2018 142 Potassium (mmol/L) Date Value 01/31/2018 4.9 Sodium (mmol/L) Date Value 01/31/2018 137 Magnesium (mg/dL) Date Value 01/27/2018 2.1 Creatinine (mg/dL) Date Value 01/31/2018 2.19 BUN (mg/dL) Date Value 01/31/2018 58 Glucose (mg/dL) Date Value 01/31/2018 251 PT INR (no units) Date Value 01/27/2018 1.0 TSH (uU/mL) Date Value 2010 1.300 NT Pro BNP (pg/mL) Date Value 01/27/2018 1303 Lipids: Cholesterol, Total (mg/dL) Date Value 05/17/2017 145 HDL Cholesterol (mg/dL) Date Value 05/17/2017 34 LDL Cholesterol (mg/dL) Date Value 05/17/2017 84 Triglyceride (mg/dL) Date Value 05/17/2017 137 Albumin (g/dL) Date Value 01/31/2018 3.1 (L) Bilirubin, Total (mg/dL) Date Value 01/31/2018 0.4 Alkaline Phosphatase (U/L) Date Value 01/31/2018 75 AST (U/L) Date Value 01/31/2018 19 ALT (U/L) Date Value 01/31/2018 20 Protein, Total (g/dL) Date Value 01/31/2018 6.1 (L) LV Ejection Fraction (%) Date Value 12/21/2017 50 Hemoglobin A1C (%) Date Value 01/26/2018 12.0 01/20/2018 12.3 10/27/2017 16.1 05/17/2017 10.0 2010 8.4 Hemoglobin A1c (%) Date Value 10/27/2017 >15 Impression/Recommendations Patient with uncontrolled Diabetes Mellitus Type 2 hyperglycemia whom we have been consulted for glycemic control. RECOMMENDATIONS: ? Change Basal Insulin: Lantus 48 units QHS and 34 units QAM ? Change Prandial Insulin: Humalog 15 units AC TID ? Continue Supplemental Sliding Scale: Humalog Program #2 AC #1 HS ? Accuchecks: AC/HS ? Recommend CHO Controlled Diet ? Consult CDE regarding: DM Education including diet and monitoring blood sugar SIGNATURE: Som Feliciano MD PATIENT NAME: Luz Baca DATE: January 31, 2018 TIME: 6:52 PM PAGER/CONTACT #: [phone] Radha Edmonds MD 01/31/2018 8:18 PM Signed HOSPITAL MEDICINE PROGRESS NOTE Name: Luz Baca SERVICE DATE: 01/31/2018 SERVICE TIME: 8:11 PM LOCATION / ROOM: [id number] Hospital Medicine/Primary Attending: Radha Edmonds MD NIGHT COVERAGE BETWEEN 5.30P-7.30A Page [phone] ASSESSMENT AND PLAN Principal Problem: ?? Chest pain in adult ? HS trop 55, repeat 56 which is similar to readings at previous admission likely from CKD. Pt had external stress test 07/2017: no evidence of ischemia. Troponin 0.050 to 0.059 to 0.076, monitor on tele. Cards consulted. F/u recs - Chronic combined systolic and diastolic CHF (congestive heart failure) (HCC) ? Pt was just hospitalized for CHF exacerbation from 01/20/18-01/23/18. BNP 1300 improved from 2145 from last admit. But still believe her symptoms related to volume overloaded Increased lasix to 80 mg BID IV and aldactone BID Cr got worse likely from volume loss from diarrhea and high dose of diurectics Would decrease lasix to 60 mg BID, diarrhea resolved, monitor cr, f/u cards recs - Atrial fibrillation (HCC) ? On eliquis. S/p pacemaker. Monitor on tele. - Pacemaker ? Had recent device interrogation 12/2017. - CAD (coronary artery disease) ? CABGx2 (DEBORAH-LAD, SVG-PDA ) in 2004 - Uncontrolled type 2 diabetes mellitus with stage 3 chronic kidney disease, with long-term current use of insulin (HCC) ? HbA1c: 12.0. ?Endocrinology consulted. On Lantus 30 units AM and 40 units HS, Humalog 12 uints with each meals plus sliding scale. Increased HS dose of Lantus to 44 units. Fasting sugars are improving - Essential hypertension ? Stable, continue home meds. ?? - Sleep apnea ? Wears CPAP at home, continue. ? Acute renal failure: Creat worsning due to over diuresis Acute diarrhea Resolved Dc Planning SUBJECTIVE INTERVAL HPI: Feels better, no fever, chills, cp nor palpitations. No events overnight MEDICATIONS: Reviewed Current Facility-Administered Medications: [START ON 02/01/2018] furosemide (LASIX) tab(s) 60 mg 60 mg ORAL BID 9a/ Radha Adams) Thuestad [START ON 02/01/2018] insulin lispro 15 Units injection (rapid acting) (HumaLOG) 15 Units SUBCUTANEOUS w MEALS Som Jodie 15 Units at 01/31/18 175 ondansetron orally disintegrating 4 mg tab(s) (ZOFRAN ODT) 4 mg ORAL q 6 H PRN Zuhair Wick 4 mg at 01/31/18 1939 insulin glargine 44 Units injection (long acting) (LANTUS) 44 Units SUBCUTANEOUS AT BEDTIME Som Jodie 44 Units at 01/30/18 205 acetaminophen 650 mg tab(s) (TYLENOL) 650 mg ORAL q 6 H PRN Leonard Ortiz 650 mg at 01/30/18 213 insulin lispro injection (rapid acting) (HumaLOG) SUBCUTANEOUS w MEALS AND HS Francis Burdenra 9 Units at 01/31/18 1801 insulin glargine 30 Units injection (long acting) (LANTUS) 30 Units SUBCUTANEOUS DAILY (8 AM) Shruti Nair 30 Units at 01/31/18 0931 spironolactone 25 mg tab(s) (ALDACTONE) 25 mg ORAL BID /5p Jose C Yeung 25 mg at 01/30/18 1801 gabapentin 600 mg cap(s) (NEURONTIN) 600 mg ORAL BID Raymond Rangel (Pa) 600 mg at 01/31/18 0936 simvastatin 40 mg tab(s) (ZOCOR) 40 mg ORAL AT BEDTIME Raymond Rangel (Pa) 40 mg at 01/30/18 205 ipratropium-albuterol 3 mL nebulizer solution (DUONEB) 3 mL INHALATION q 4 H PRN Raymond Yap (Pa)ker 3 mL at 01/31/18 0809 apixaban 5 mg tab(s) (ELIQUIS) 5 mg ORAL BID Raymond (Gorge) Claire 5 mg at 01/31/[address] 40 mg tab(s) (PROTONIX) 40 mg ORAL BID Raymond (Gorge) Claire 40 mg at 01/31/18 0936 bacitracin 1 application topical ointment 1 application TOPICAL BID Raymond (Gorge) Claire 1 application at 01/31/18 0900 isosorbide mononitrate ER 60 mg tab(s) (IMDUR) 60 mg ORAL DAILY Raymond (Gorge) Claire 60 mg at 01/31/18 0936 0.9% NaCl 3-5 mL 3-5 mL INTRAVENOUS q 12 H Raymond (Gorge) Claire 5 mL at 01/31/18 0900 dextrose 40 % 15 g 15 g ORAL PRN Raymond (Gorge) Claire Or glucagon 1 mg injection (GLUCAGEN) 1 mg INTRAMUSCULAR PRN Raymond (Gorge) Claire Or dextrose 50% in water 25 mL syringe 12.5 g INTRAVENOUS PRN Raymond (Gorge) Claire miconazole 2 % 1 application topical powder (LOTRIMIN AF, DESENEX) 1 application TOPICAL BID Gloria Ebonie Singer 1 application at 01/31/18 0900 OBJECTIVE PHYSICAL EXAM: BP 108/36 Pulse 54 Temp (Src) 98.2 (Oral) Resp 20 Ht 5' 8 (1.73m) Wt 215 lb 13.3 oz (97.9kg) SpO2 97% BMI 32.82 kg/(m2). GENERAL: Alert, no distress, cooperative, Morbidly Obese SKIN: Skin color, texture, turgor normal. No rashes or lesions. EYES: PERRLA, EOMI OROPHARYNX: Lips, mucosa, and tongue normal. Teeth and gums normal. Oropharynx normal. NECK: No jugulovenous distention, No carotid bruits, Carotid pulse normal contour, Supple LUNGS: Lungs clear to auscultation, Good diaphragmatic excursion CARDIAC: Normal S1 and S2; no rubs, murmurs, or gallops ABDOMEN: Abdomen soft, non-tender, BS normal, No masses or organomegaly EXTREMITIES: Extremities normal, no deformities, edema, clubbing or skin discoloration. Good capillary refill., No ulcers NEURO: Gait normal. Reflexes normal and symmetric. Sensation grossly intact, Cranial nerves II-XII intact PULSES: 2+ radial, 2+ carotid DATA: Diagnostic tests reviewed for today's visit: Most recent labs CBC: WBC 8.37 01/31/2018 HEMOGLOBIN 11.1 01/31/2018 HEMATOCRIT 35.3 01/31/2018 PLATELETS 142 01/31/2018 CMP: Sodium 137 01/31/2018 Potassium 4.9 01/31/2018 BUN 58 01/31/2018 Creatinine 2.19 01/31/2018 Glucose 251 01/31/2018 Chloride 95 01/31/2018 CO2 Content, Venous 31 01/31/2018 VTE Prophylaxis: Patient is already anti-coagulated. Disposition: Home with [facility] Plan of care discussed with: Patient SIGNATURE: Radha Edmonds MD DATE: January 31, 2018 TIME: 8:[address] 02/01/2018 10:20 AM Signed NUTRITION THERAPY NOTE SERVICE DATE: 02/01/2018 SERVICE TIME: 914 Anthropometrics: Height: 172.7 cm (5' 8) Current Weight: Weight: 99.2 kg (218 lb 11.1 oz) Body mass index is 33.25 kg/(m2). Loss of lean body mass/visual muscle wasting: no Admitting Diagnosis: Cardiac enzymes elevated [R74.8] Present Diet Order: Carbohydrate Controlled Is the patient having any pain that is interfering with oral/enteral intake? No Allergies: ALLERGIES Allergen Reactions - Aspirin Other: See Comments Patient states that she bled out every orifice, sts not allowed to take it at all. Patient states she was bleeding out of nose and mouth after one dose. - Bactrim [Sulfametho* Other: See Comments My throat swells up. - Latex Rash, Itching Itching and welts. No wheezing or shortness of breath. - Penicillins Rash, Itching Tolerated ceftriaxone during 11/2017 admission and cefepime during 12/2017 admission - Tetracycline Rash, GI Upset Emesis and diarrhea. - Atorvastatin Rash - Codeine Other: See Comments Numbness - Dilaudid [Hydromorp* Mental Status Change - Meperidine - Pentazocine - Pioglitazone Unknown - Propoxyphene Reason for Visit: Nutrition screen: LOS No issues chewing, swallowing, nausea or emesis reported. Normal appetite/too good of an appetite Nursing Admission Assessment Malnutrition Score Tool: 0 Plan of Care: Recommendation No problems noted at this time. Will screen again within 7 days Discharge Plan: Home on carbohydrate controlled diet MNT Billing Type: Initial Assess/15 min 1 unit SIGNATURE: Megan Buck RD PATIENT NAME: Luz Baca DATE: February 01, 2018 TIME: 10:20 AM Clifton Aaron RN, RN 02/01/2018 5:52 PM Addendum Nursing Progress Note Patient Name: Luz Baca Patient Location[place] [address] [address] Daily Note:0730- rounds done and noted pt. Up in her bathroom. 0800-fsbs done and ssi and meal insulin and lantus all given, pt. Has her tray and eating well. Student Emily gave pt. meds and rhea. Well. Held some d/t bloody nose, and labs bun,creatine both elevating., notified and orders noted. 1330- noted, family here and updated, and then meds given earlier for her fsbs and meal coverage. Assessment unchanged. Pt. Now sitting on edge of her bed and no distress. 1400- pt. Sleeping on her left side and no distress.1600- pt. Awake and visiting with daughter at her bedside, U/S coming up, diet ordered, 0.9NS started infusing in her right arm iv and rhea. Well. U/S here and kidney/bladder done. 1700- fsbs done, ssi given and insulin with dinner tray given, and tray here. Pt. Sat up on edge of her bed. This note was completed by: Clifton Aaron RN Previous Version Radha Edmonds MD 02/01/2018 2:18 PM Signed HOSPITAL MEDICINE PROGRESS NOTE Name: Luz Baca SERVICE DATE: 02/01/2018 SERVICE TIME: 2:16 PM LOCATION / ROOM: [place] [id number] [place] [facility] Medicine/Primary Attending: Radha Edmonds MD NIGHT COVERAGE BETWEEN 5.30P-7.30A Page [phone] ASSESSMENT AND PLAN Principal Problem: ? Chest pain in adult ? HS trop 55, repeat 56 which is similar to readings at previous admission likely from CKD. Pt had external stress test 07/2017: no evidence of ischemia. Troponin 0.050 to 0.059 to 0.076, monitor on tele. Cards consulted. F/u recs - Chronic combined systolic and diastolic CHF (congestive heart failure) (HCC) ? Pt was just hospitalized for CHF exacerbation from 01/20/18-01/23/18. BNP 1300 improved from 2145 from last admit. But?still believe her symptoms related to volume overloaded Increased lasix to 80 mg BID IV and aldactone BID Cr got worse likely from volume loss from diarrhea and high dose of diurectics Would decrease lasix to 60 mg BID, diarrhea resolved, monitor cr, f/u cards recs - Atrial fibrillation (HCC) ? On eliquis. S/p pacemaker. Monitor on tele. - Pacemaker ? Had recent device interrogation 12/2017. - CAD (coronary artery disease) ? CABGx2 (DEBORAH-LAD, SVG-PDA ) in 2004 - Uncontrolled type 2 diabetes mellitus with stage 3 chronic kidney disease, with long-term current use of insulin ([facility]) ? HbA1c: 12.0. ?Endocrinology consulted. On Lantus 30 units AM and 40 units HS, Humalog 12 uints with each meals plus sliding scale. Increased HS dose of Lantus to 44 units. Fasting sugars are improving - Essential hypertension ? Stable, continue home meds. ?? - Sleep apnea ? Wears CPAP at home, continue. ?? Acute renal failure: Creat worsning due to over diuresis Consulted nephro Slight improvement today. Hold off lasix and aldactone today ? Acute diarrhea Resolved ? Dc Planning SUBJECTIVE INTERVAL HPI: Feels better, no fever, chills, cp nor palpitations. No events overnight MEDICATIONS: Reviewed Current Facility-Administered Medications: apixaban 2.5 mg tab(s) (ELIQUIS) 2.5 mg ORAL BID Radha Adams) Linkuestakellee insulin lispro 15 Units injection (rapid acting) (HumaLOG) 15 Units SUBCUTANEOUS w MEALS Som Feliciano 15 Units at 02/01/18 1219 ondansetron orally disintegrating 4 mg tab(s) (ZOFRAN ODT) 4 mg ORAL q 6 H PRN Zuhiar Wick 4 mg at 01/31/18 1939 insulin glargine 34 Units injection (long acting) (LANTUS) 34 Units SUBCUTANEOUS DAILY (8 AM) Som Jodie 34 Units at 02/01/18 0945 insulin glargine 48 Units injection (long acting) (LANTUS) 48 Units SUBCUTANEOUS AT BEDTIME Som Jodie 48 Units at 01/31/18 2143 acetaminophen 650 mg tab(s) (TYLENOL) 650 mg ORAL q 6 H PRN Shameer Khubber 650 mg at 01/30/18 2137 insulin lispro injection (rapid acting) (HumaLOG) SUBCUTANEOUS w MEALS AND HS Francis Rachel 9 Units at 02/01/18 1221 gabapentin 600 mg cap(s) (NEURONTIN) 600 mg ORAL BID Raymond (Gorge) Claire 600 mg at 02/01/18 0936 simvastatin 40 mg tab(s) (ZOCOR) 40 mg ORAL AT BEDTIME Raymond (Gorge) Claire 40 mg at 01/31/18 2142 ipratropium-albuterol 3 mL nebulizer solution (DUONEB) 3 mL INHALATION q 4 H PRN Raymond (Gorge) Claire 3 mL at 02/01/[address] 40 mg tab(s) (PROTONIX) 40 mg ORAL BID Raymond (Gorge) Claire 40 mg at 02/01/18 0936 bacitracin 1 application topical ointment 1 application TOPICAL BID Raymond (Gorge) Claire 1 application at 02/01/18 0956 isosorbide mononitrate ER 60 mg tab(s) (IMDUR) 60 mg ORAL DAILY Raymond (Gorge) Claire 60 mg at 02/01/18 0937 0.9% NaCl 3-5 mL 3-5 mL INTRAVENOUS q 12 H Raymond (Gorge) Claire 5 mL at 02/01/18 0900 dextrose 40 % 15 g 15 g ORAL PRN Raymond (Gorge) Claire Or glucagon 1 mg injection (GLUCAGEN) 1 mg INTRAMUSCULAR PRN Raymond Rangel (Pa) Or dextrose 50% in water 25 mL syringe 12.5 g INTRAVENOUS PRN Raymond Rangel (Pa) miconazole 2 % 1 application topical powder (LOTRIMIN AF, DESENEX) 1 application TOPICAL BID Gloria Singer 1 application at 01/31/184 OBJECTIVE PHYSICAL EXAM: BP 117/90 Pulse 61 Temp (Src) 98 (Oral) Resp 19 Ht 5' 8 (1.73m) Wt 218 lb 11.1 oz (99.2kg) SpO2 94% BMI 33.26 kg/(m2). GENERAL: Alert, no distress, cooperative SKIN: Skin color, texture, turgor normal. No rashes or lesions. EYES: PERRLA, EOMI OROPHARYNX: Lips, mucosa, and tongue normal. Teeth and gums normal. Oropharynx normal. NECK: No jugulovenous distention, No carotid bruits, Carotid pulse normal contour, Supple LUNGS: Lungs clear to auscultation, Good diaphragmatic excursion CARDIAC: Normal S1 and S2; no rubs, murmurs, or gallops ABDOMEN: Abdomen soft, non-tender, BS normal, No masses or organomegaly EXTREMITIES: Extremities normal, no deformities, edema, clubbing or skin discoloration. Good capillary refill., No ulcers NEURO: Reflexes normal and symmetric. Sensation grossly intact, Cranial nerves II-XII intact PULSES: 2+ radial, 2+ carotid DATA: Diagnostic tests reviewed for today's visit: Most recent labs CBC: WBC 9.04 02/01/2018 HEMOGLOBIN 10.7 02/01/2018 HEMATOCRIT 33.8 02/01/2018 PLATELETS 137 02/01/2018 CMP: Sodium 136 02/01/2018 Potassium 5.2 02/01/2018 BUN 69 02/01/2018 Creatinine 2.30 02/01/2018 Glucose 226 02/01/2018 Chloride 95 02/01/2018 CO2 Content, Venous 28 02/01/2018 VTE Prophylaxis: Patient is already anti-coagulated. Disposition: Home with [facility] Plan of care discussed with: Patient SIGNATURE: Radha Edmonds MD DATE: February 01, 2018 TIME: 2:16 PM Malena Bray MD 02/01/2018 3:58 PM Signed CONSULT: NEPHROLOGY SERVICE PATIENT NAME: Luz Baca DATE of SERVICE: 02/01/18 TIME of SERVICE: 3:47 PM REASON FOR CONSULT: ROMÁN on CKD 3 REQUESTING PHYSICIAN: Dr. Edmonds PRIMARY CARE PHYSICIAN: Jameson Kamara MD Ms. Baca is a 77 year old female who presents for chest pain and SOB. She has a history of hypertrophic CM s/p septal myomectomy and CABG x 2 in the past with ICD placement. Most recent echo demonstrates a relatively preserved LVEF but mod/severe pulm HTN. She also has a history of CKD 3 with a baseline Cr in the mid/high 1 range although this is variable depending on volume status. She was admitted last week for possible CHF; she was diuresed with an expected rise in creatinine from 1.5 to 1.9. She was seen by my partner Dr. Martin last week for her CKD 3. Unfortunately, was readmitted with chest pain and SOB with edema. She was started on IV lasix. Cr has been rising since admission from 1.5 to 2.3. She was also given spironolactone as well. Renal evaluation requested for volume management and ROMÁN workup. In regards to CKD 3, she has a variable baseline Cr and microalbuminuria. I don't see any recent Vit D or PTH. Hb is > 10. No recent renal imaging. Risk factors include chronic diuretics, DM. She is on chronic gabapentin. No history of recent NSAIDs. PAST MEDICAL HISTORY: PAST MEDICAL HISTORY Diagnosis Date - Arthritis - Atrial fibrillation (HCC) - CAD (coronary artery disease) stents x9, defibrillator, CABG. Seeing Dr. Cardona - Cardiac defibrillator in place - Cardiomegaly - Carotid artery disease (HCC) left - Chronic kidney disease (CKD) stage G3b/A2, moderately decreased glomerular filtration rate (GFR) between 30-44 mL/min/1.73 square meter and albuminuria creatinine ratio between 30-299 mg/g Dr. Martin - COPD (chronic obstructive pulmonary disease) ([facility]) Dr. Cruz - Depression - Diabetes (HCC) - Diabetic neuropathy (HCC) - Edema - GERD (gastroesophageal reflux disease) - Gout with hyperuricemia - HH (hiatus hernia) - HOCM (hypertrophic obstructive cardiomyopathy) ([facility]) S/P Septal Myectomy in 2003. Now with LVEF 50% and mod/severe pulm HTN. - HTN (hypertension) - Hyperlipidemia - Morbid obesity with BMI of 40.0-44.9, adult (HCC) - Sleep apnea 2011 not on CPAP, unable to tolerate mask 02/2017 - SVT (supraventricular tachycardia) ([facility]) NSVT and questionable VT in 2003 post op PAST SURGICAL HISTORY: PAST SURGICAL HISTORY Procedure Laterality Date - CHOLECYSTECTOMY HX - HEART SURGERY HX 07/18/2004 Septal myectomy and CABG x2 (DEBORAH-LAD, SVG-PDA). - HYSTERECTOMY HX - IANDD PERIANAL ABSCESS - PAST SURGICAL HISTORY OF left breast nodule removed - PAST SURGICAL HISTORY OF skin lesions removed FAMILY HISTORY: FAMILY HISTORY Problem Relation Age of Onset - Hypertension Mother living at age 93, HTN - Heart Failure Mother [place] - Cancer Father age 71, lung cancer SOCIAL HISTORY: Social History Substance Use Topics - Smoking status: Former Smoker Packs/day: 2.50 Years: 43.00 Types: Cigarettes Start date: 1961 Quit date: 07/07/2004 - Smokeless tobacco: Never Used - Alcohol use No MEDICATIONS: Prior to Admission Medications: Prescriptions Prior to Admission: furosemide (LASIX) 40 mg tablet Take 80 mg by mouth twice daily. Disp: Rfl: 01/27/2018 at 0800 gabapentin (NEURONTIN) 300 mg capsule Take 600 mg by mouth twice daily. Disp: Rfl: 01/27/2018 at 0800 insulin aspart U-100 (NOVOLOG FLEXPEN U-100 INSULIN) 100 unit/mL inpn Inject 12 Units subcutaneously three times daily with meals. Disp: Rfl: 01/27/2018 at Unknown time insulin glargine (LANTUS SOLOSTAR U-100 INSULIN) 100 unit/mL (3 mL) inpn Inject 50 Units subcutaneously every morning. Disp: Rfl: 01/27/2018 at 0800 insulin glargine (LANTUS SOLOSTAR U-100 INSULIN) 100 unit/mL (3 mL) inpn Inject 36 Units subcutaneously daily at bedtime. Disp: Rfl: 01/26/[address] (PROTONIX) 40 mg tablet Take 40 mg by mouth twice daily. Disp: Rfl: 01/27/2018 at 0800 potassium chloride (K-TAB) 10 mEq tablet Take 10 mEq by mouth daily with breakfast. Disp: Rfl: 01/27/2018 at 0800 bacitracin (ANTIBIOTIC, BACITRACIN ZINC,) ointment Apply 1 application to affected area twice daily. Disp: 1 Tube Rfl: 1 01/27/2018 at Unknown time nystatin (NYSTOP) powder Apply 1 application to affected area three times daily. Disp: 60 g Rfl: 2 Unknown at Unknown time isosorbide mononitrate ER (IMDUR) 60 mg 24 hr tablet Take 1 tablet by mouth once daily. Disp: 30 tablet Rfl: 5 01/27/2018 at 0800 apixaban (ELIQUIS) 5 mg tab(s) Take 5 mg by mouth twice daily. Disp: Rfl: 01/27/2018 at 0800 simvastatin (ZOCOR) 40 mg tablet Take 40 mg by mouth every morning. Disp: Rfl: 01/27/2018 at 0800 spironolactone (ALDACTONE) 25 mg tablet Take 1 tablet by mouth once daily. Disp: Rfl: 01/27/2018 at 0800 ipratropium-albuterol (DUONEB) 0.5 mg-3 mg(2.5 mg base)/3 mL nebu Inhale 3 mL as instructed every 4 hours as needed. Disp: 180 Vial Rfl: 3 Unknown at Unknown time guaiFENesin-dextromethorphan (ROBITUSSIN DM) 100-10 mg/5 mL syrup Take 5-10 mL by mouth every 6 hours as needed for Cough. Disp: 118 mL Rfl: 0 Unknown at Unknown time nitroglycerin sublingual (NITROQUICK) 0.4 mg SL tablet Dissolve 1 tablet under the tongue every 5 minutes as needed. Disp: 1 Bottle of 25 Rfl: 0 Unknown at Unknown time OXYGEN, HOME THERAPY, Inhale 2.5 L/min as instructed continuous. 3 L/min when leaves home. Disp: Rfl: Unknown at Unknown time gabapentin (NEURONTIN) 300 mg capsule Take 2 capsules by mouth three times daily for 30 days. (Patient taking differently: Take 600 mg by mouth twice daily. ) Disp: Rfl: 12/09/2017 Current hospital medications: apixaban 2.5 mg tab(s) (ELIQUIS) 2.5 mg ORAL BID NaCl 0.9% iv infusion 75 mL/hr INTRAVENOUS CONTINUOUS gabapentin 200 mg cap(s) (NEURONTIN) 200 mg ORAL BID insulin lispro 15 Units injection (rapid acting) (HumaLOG) 15 Units SUBCUTANEOUS w MEALS ondansetron orally disintegrating 4 mg tab(s) (ZOFRAN ODT) 4 mg ORAL q 6 H PRN insulin glargine 34 Units injection (long acting) (LANTUS) 34 Units SUBCUTANEOUS DAILY (8 AM) insulin glargine 48 Units injection (long acting) (LANTUS) 48 Units SUBCUTANEOUS AT BEDTIME acetaminophen 650 mg tab(s) (TYLENOL) 650 mg ORAL q 6 H PRN insulin lispro injection (rapid acting) (HumaLOG) SUBCUTANEOUS w MEALS AND HS simvastatin 40 mg tab(s) (ZOCOR) 40 mg ORAL AT BEDTIME ipratropium-albuterol 3 mL nebulizer solution (DUONEB) 3 mL INHALATION q [address] 40 mg tab(s) (PROTONIX) 40 mg ORAL BID bacitracin 1 application topical ointment 1 application TOPICAL BID isosorbide mononitrate ER 60 mg tab(s) (IMDUR) 60 mg ORAL DAILY 0.9% NaCl 3-5 mL 3-5 mL INTRAVENOUS q 12 H dextrose 40 % 15 g 15 g ORAL PRN glucagon 1 mg injection (GLUCAGEN) 1 mg INTRAMUSCULAR PRN dextrose 50% in water 25 mL syringe 12.5 g INTRAVENOUS PRN miconazole 2 % 1 application topical powder (LOTRIMIN AF, DESENEX) 1 application TOPICAL BID ALLERGIES: ALLERGIES Allergen Reactions - Aspirin Other: See Comments Patient states that she bled out every orifice, sts not allowed to take it at all. Patient states she was bleeding out of nose and mouth after one dose. - Bactrim [Sulfametho* Other: See Comments My throat swells up. - Latex Rash, Itching Itching and welts. No wheezing or shortness of breath. - Penicillins Rash, Itching Tolerated ceftriaxone during 11/2017 admission and cefepime during 12/2017 admission - Tetracycline Rash, GI Upset Emesis and diarrhea. - Atorvastatin Rash - Codeine Other: See Comments Numbness - Dilaudid [Hydromorp* Mental Status Change - Meperidine - Pentazocine - Pioglitazone Unknown - Propoxyphene COMPLETE REVIEW OF SYSTEMS: PAIN ASSESSMENT: Negative for pain, history of chronic pain, or current treatment for a chronic pain condition. GENERAL: No weight loss, malaise or fevers HEENT: Negative for frequent or significant headaches NECK: Negative for lumps, goiter, pain and significant neck swelling RESPIRATORY: chronic SOB and O2 requirement CARDIOVASCULAR: +LE edema, improved chest pain GI: No nausea, vomiting, or diarrhea : Negative CARE ASSOCIATE: Not reviewed MUSCULOSKELETAL: Negative for joint pain or swelling, back pain or muscle pain SKIN: Negative for lesions, rash, and itching PSYCH: Negative for sleep disturbance, mood disorder and recent psychosocial stressors HEMATOLOGY/LYMPHOLOGY: Negative for prolonged bleeding, bruising easily or swollen nodes ENDOCRINE: Negative for cold or heat intolerance, polyuria, polydipsia and goiter NEURO: No history of headaches, syncope, paralysis, seizures or tremors PHYSICAL EXAM: Patient Vitals for the past 24 hrs: BP Temp Temp src Pulse Resp SpO2 Weight 02/01/18 1532 99/53 37 ?C (98.6 ?F) Oral 78 18 98 % - 02/01/18 1112 117/90 36.7 ?C (98 ?F) Oral 61 19 94 % - 02/01/18 0820 - - - 63 - - - 02/01/18 0805 - - - 63 18 96 % - 02/01/18 0724 118/78 36.7 ?C (98.1 ?F) Oral (!) 55 18 96 % - 02/01/18 0418 112/56 37 ?C (98.6 ?F) Oral 60 18 96 % - 02/01/18 0400 - - - - - - 99.2 kg (218 lb 11.1 oz) 01/31/18 2345 109/50 36.9 ?C (98.4 ?F) Oral 63 20 96 % - 01/31/182039 - - - (!) 48 16 - - 01/31/182031 - - - (!) 46 16 97 % - 01/31/182014 (!) 128/42 36.8 ?C (98.2 ?F) Oral (!) 41 18 98 % - 01/31/18 1637 (!) 108/36 36.8 ?C (98.2 ?F) Oral (!) 54 20 97 % - Body mass index is 33.25 kg/(m2). GENERAL: Alert, no distress, cooperative SKIN: Skin color, texture, turgor normal. No rashes or lesions. HEAD/SINUSES: No significant findings EYES: EOMI EARS: External ears normal, canals clear NOSE: Nares normal. Septum midline. OROPHARYNX: Lips, mucosa, and tongue normal. Teeth and gums normal. Oropharynx normal. NECK: thick neck LUNGS: lungs clear to auscultation CARDIAC: no rub ABDOMEN: soft EXTREMITIES: 1+ edema with some venous stasis dermatitis NEURO: no obvious deficits DATA: Recent Labs 02/01/18 0432 01/31/18 0436 01/30/18 0431 CREAT 2.30* 2.19* 1.99* BUN 69* 58* 52* NA 136 137 136 K 5.2* 4.9 4.3 CHLOR 95* 95* 96* WBC 9.04 8.37 8.64 ALB 3.1* 3.1* 3.2* ALKPHOS 68 75 76 AST 16 19 18 ALT 18 20 21 ASSESSMENT AND PLAN: 1. ROMÁN on CKD 3 due to diuresis of right > left CHF 2. Edema multifactorial from right sided CHF and high dose gabapentin 3. Hyperkalemia due to #1 and recent spironolactone 4. Underlying CKD 3 followed by my partner Dr. Martin Plan: 1. Hold furosemide and spironolactone 2. IVF x 1 liter and monitor pulmonary status 3. Low K diet; no potassium supplementation 4. Check Vit D, PTH and uric acid 5. Check renal US 6. Check urine alb/creat and sodium 7. Decrease gabapentin to 200mg BID due to contribution to edema Thanks, SIGNATURE: Malena Bray MD DATE: February 01, 2018 TIME: 3:47 PM February 01, 2018 02/01/2018 Som Feliciano MD 02/01/2018 6:02 PM Signed Component Latest Ref Rng AND Units 01/31/2018 01/31/2018 01/31/2018 01/31/2018 01/31/2018 02/01/2018 02/01/2018 02/01/2018 8:28 AM 12:54 PM 4:38 PM 7:09 PM 8:16 PM 8:03 AM 11:47 AM 4:40 PM Glucose, Point of Care 74 - 99 mg/dL 279 (A) 300 (A) 261 (A) 249 (A) 244 (A) 249 (A) 299 (A) 186 (A) Impression: IDDM: Uncontrolled. Still blood sugar running in 200 range with just a few reading below 200 today. Plan: Go up on Lantus dose to 50 units at at bedtime and 30 units in the morning. Also go up on Humalog to 17 units before each meal. Monitor blood sugar before each meal and at bedtime. Call Endo ux information architect if blood sugar is less than 80 or more than 210. Som Feliciano MD February 01, 2018 Malena Bray MD 02/02/2018 10:44 AM Signed Patient seen and examined. She is feeling nauseated this AM. Not eating well. Doesn't feel more swollen or more SOB. She is feeling constipated Blood pressure 93/77, pulse 61, temperature 36.5 ?C (97.7 ?F), temperature source Oral, resp. rate 20, height 172.7 cm (5' 8), weight 105.5 kg (232 lb 8 oz), SpO2 97 %. Intake/Output Summary (Last 24 hours) at 02/02/18 1039 Last data filed at 02/01/18 1700 Gross per 24 hour Intake 510 ml Output 200 ml Net 310 ml Gen: weak Resp: diminished BS CVS: no rub Abd: soft Ext: trace to 1+ edema K 5.3, Cr 2.5, Uric 15.4 Hb 10.9 Urine Na < 10 Vit D and PTH pending Renal US no obstruction Impression: 1. ROMÁN on CKD 3 due to diuresis of right > left CHF -poor renal perfusion suggested by low urine Na 2. Edema multifactorial from right sided CHF and gabapentin 3. Hyperkalemia due to #1 and recent spironolactone 4. Underlying CKD 3 followed [address] my partner Dr. Martin 5. Hyperuricemia ? Plan: 1. Continue to hold all diuretics 2. IVF with NS x 1.5L again 3. Low K diet; no potassium supplementation 4. Follow up Vit D and PTH 5. Check renal US 6. Check urine alb/creat 7. Decreased gabapentin to 200mg BID due to contribution to edema 8. Hold off allopurinol due to upset stomach currently; will recheck uric acid tomorrow after IVF ? Shruti Nair MD 02/02/2018 11:44 AM Signed DIABETES PROGRESS NOTE PATIENT NAME: Luz Baca SERVICE DATE: 02/02/2018 ASSESSMENT AND PLAN Ms. Baca is a 77 year old female with a 15 year history of Diabetes Mellitus Type 2 hyperglycemia who was admitted on 01/27/2018 for chest pain. We are consulted for diabetes mgmt. Uncontrolled type 2 diabetes BG were above goal yesterday, fasting has improved lantus and humalog doses were increased yesterday ? Continue Lantus 48 units QHS and 34 units QAM ? continue Humalog 17 units AC TID ? continue Supplemental Sliding Scale: Humalog Program #2 AC #1 HS ? Accuchecks: AC/HS ? notify endocrinology if BG < 80 or > 200 Interval HPI +nausea and diarrhea Decreased PO intake Preadmission insulin regimen: Lantus 50 units Q am and 36 units at HS Humalog 12 units TID and Q AC pen Sliding scale: One unit for every 25 mg/dL PAST MEDICAL HISTORY: PAST MEDICAL HISTORY Diagnosis Date - Arthritis - Atrial fibrillation ([facility]) - CAD (coronary artery disease) stents x9, defibrillator, CABG. Seeing Dr. Cardona - Cardiac defibrillator in place - Cardiomegaly - Carotid artery disease ([facility]) left - Chronic kidney disease (CKD) stage G3b/A2, moderately decreased glomerular filtration rate (GFR) between 30-44 mL/min/1.73 square meter and albuminuria creatinine ratio between 30-299 mg/g Dr. Martin - COPD (chronic obstructive pulmonary disease) ([facility]) Dr. Cruz - Depression - Diabetes ([facility]) - Diabetic neuropathy ([facility]) - Edema - GERD (gastroesophageal reflux disease) - Gout with hyperuricemia - HH (hiatus hernia) - HOCM (hypertrophic obstructive cardiomyopathy) ([facility]) S/P Septal Myectomy in 2003. Now with LVEF 50% and mod/severe pulm HTN. - HTN (hypertension) - Hyperlipidemia - Morbid obesity with BMI of 40.0-44.9, adult ([facility]) - Sleep apnea 2011 not on CPAP, unable to tolerate mask 02/2017 - SVT (supraventricular tachycardia) ([facility]) NSVT and questionable VT in 2003 post op CURRENT MEDICATION: Current Facility-Administered Medications: docusate sodium 100 mg cap(s) (COLACE) 100 mg ORAL BID Radha Adams) Thuestad 100 mg at 02/02/18 1046 polyethylene glycol 3350 17 g packet (MIRALAX, GLYCOLAX) 17 g ORAL DAILY Radha Adams) Thuestad 17 g at 02/02/18 1046 bisacodyl 10 mg suppository (DULCOLAX) 10 mg RECTAL DAILY PRN Radha Adams) Thuestad NaCl 0.9% iv infusion 75 mL/hr INTRAVENOUS CONTINUOUS Malena A Argekar apixaban 2.5 mg tab(s) (ELIQUIS) 2.5 mg ORAL BID Radha Adams) Thuestad 2.5 mg at 02/02/18 0850 gabapentin 200 mg cap(s) (NEURONTIN) 200 mg ORAL BID Malena A Argekar 200 mg at 02/02/18 0850 insulin glargine 50 Units injection (long acting) (LANTUS) 50 Units SUBCUTANEOUS AT BEDTIME Som Jodie 50 Units at 02/01/18 2113 insulin glargine 36 Units injection (long acting) (LANTUS) 36 Units SUBCUTANEOUS DAILY (8 AM) Som Jodie 36 Units at 02/02/18 0851 insulin lispro 17 Units injection (rapid acting) (HumaLOG) 17 Units SUBCUTANEOUS w MEALS Somjon Feliciano ondansetron orally disintegrating 4 mg tab(s) (ZOFRAN ODT) 4 mg ORAL q 6 H PRN Zuhair Wick 4 mg at 02/02/18 0807 acetaminophen 650 mg tab(s) (TYLENOL) 650 mg ORAL q 6 H PRN Leonard Ortiz 650 mg at 01/30/18 2137 insulin lispro injection (rapid acting) (HumaLOG) SUBCUTANEOUS w MEALS AND HS Francis Ramos 3 Units at 02/01/18 1656 simvastatin 40 mg tab(s) (ZOCOR) 40 mg ORAL AT BEDTIME Raymond Nayak) Claire 40 mg at 02/01/18 2113 ipratropium-albuterol 3 mL nebulizer solution (DUONEB) 3 mL INHALATION q 4 H PRN Raymond Nayak) Claire 3 mL at 02/01/[address] 40 mg tab(s) (PROTONIX) 40 mg ORAL BID Raymond Nayak) Claire 40 mg at 02/02/18 0850 bacitracin 1 application topical ointment 1 application TOPICAL BID Raymond (Gorge) Claire 1 application at 02/02/18 1031 isosorbide mononitrate ER 60 mg tab(s) (IMDUR) 60 mg ORAL DAILY Raymond Nayak) Claire 60 mg at 02/02/18 0851 0.9% NaCl 3-5 mL 3-5 mL INTRAVENOUS q 12 H Raymond OsheaGorge) Claire 5 mL at 02/02/18 0900 dextrose 40 % 15 g 15 g ORAL PRN Raymond Nayak) Claire Or glucagon 1 mg injection (GLUCAGEN) 1 mg INTRAMUSCULAR PRN Raymond Nayak) Claire Or dextrose 50% in water 25 mL syringe 12.5 g INTRAVENOUS PRN Raymond (Gorge) Claire miconazole 2 % 1 application topical powder (LOTRIMIN AF, DESENEX) 1 application TOPICAL BID Gloria Singer 1 application at 02/02/18 1034 CURRENT ALLERGIES: Allergies As of Date: 01/27/2018 Allergen Noted Reaction ASPIRIN 01/20/2018 Other: See Comments BACTRIM [SULFAMETHOXAZOLE-TRIMETH*05/17/2017 Other: See Comments LATEX 05/17/2017 Rash and Itching PENICILLINS 07/14/2004 Rash and Itching TETRACYCLINE 09/29/2010 Rash and GI Upset ATORVASTATIN 05/17/2017 Rash CODEINE 05/17/2017 Other: See Comments DILAUDID [HYDROMORPHONE (BULK)] 05/17/2017 Mental Status Change MEPERIDINE 07/14/2004 PENTAZOCINE 07/14/2004 PIOGLITAZONE 05/17/2017 Unknown PROPOXYPHENE 07/14/2004 Fully Assessed 01/27/2018 COMPLETE REVIEW OF SYSTEMS: General: no fever, chills or acute changes in weight in the last 6 months Skin: no rashes, pruritis or dry skin Cardiac: denies chest pain, heart palpitations or orthopnea Pulmonary: denies wheezing, productive cough or exertional dyspnea GI: denies nausea, vomiting, diarrhea or constipation Neuro: denies numbnes/tingling in hands or feet and denies seizures Musc: denies history of upper or lower extremity weakness Endocrine: denies polyuria, polydipsia, nocturia, blurry vision or excessive fatigue Hematology: Negative for anemia, easy bleeding and bruising. OBJECTIVE PHYSICAL EXAM: BP 93/77 Pulse 61 Temp 36.5 ?C (97.7 ?F) (Oral) Resp 20 Ht 172.7 cm (5' 8) Wt 105.5 kg (232 lb 8 oz) SpO2 97% BMI 35.35 kg/m2 General: Well appearing, alert, in no acute distress, on oxygen Skin: skin color, texture, turgor normal, no rashes or lesions. Heart: RRR without murmur, gallop, or rubs. No ectopy Pulmonary: Lungs clear to auscultation. No wheezing, rhonchi, rales Abdomen: soft, non-tender, positive bowel sounds Extremities: + edema, chronic venous stasis, no calluses or ulcers present. DATA: Diagnostic tests reviewed for today: Recent Labs 02/02/18 0803 02/01/18 2100 02/01/18 1640 02/01/18 1147 02/01/18 0803 01/31/18 2016 01/31/18 1909 01/31/18 1638 01/31/18 1254 01/31/18 0828 01/30/18201901/30/18 1623 01/30/18 1215 PCGLUCOSE 127* 107* 186* 299* 249* 244* 249* 261* 300* 279* 289* 193* 115* Glucose, Point of Care Date Value Ref Range Status 02/02/2018 127 (A) 74 - 99 mg/dL Final Comment: Meter ID:[id number] SIGNATURE: Shruti Nair MD DATE: February 02, 2018 Vanessa Gonzalez RN, RN 02/02/2018 3:08 PM Signed CARE MANAGEMENT PROGRESS NOTE SERVICE DATE: 02/02/2018 SERVICE TIME: 3:07 PM LOS: 5 days EMR reviewed. Spoke to DR Edmonds, spoke to bedside ALLYSON Arrieta. Nephro on consult, Labs off Kidney function. From home with dtr. On Chronic 2.5 LO2 at home., active with [facility]. PCP Dr. Kamara, any day/time OK for f/u appt. Dtr will transport. SIGNATURE: Vanessa Gonzalez RN PATIENT NAME: Luz Baca DATE: February 02, 2018 TIME: 3:07 PM PAGER/CONTACT #: - Radha Edmonds MD 02/02/2018 7:42 PM Signed HOSPITAL MEDICINE PROGRESS NOTE Name: Luz Baca SERVICE DATE: 02/02/2018 SERVICE TIME: 7:39 PM LOCATION / ROOM: [id number] Hospital Medicine/Primary Attending: Radha Edmonds MD NIGHT COVERAGE BETWEEN 5.30P-7.30A Page [id number] ASSESSMENT AND PLAN ? Chest pain in adult ? HS trop 55, repeat 56 which is similar to readings at previous admission likely from CKD. Pt had external stress test 07/2017: no evidence of ischemia. Troponin 0.050 to 0.059 to 0.076, monitor on tele. Cards consulted. F/u recs - Chronic combined systolic and diastolic CHF (congestive heart failure) (HCC) ? Pt was just hospitalized for CHF exacerbation from 01/20/18-01/23/18. BNP 1300 improved from 2145 from last admit. But?still believe her symptoms related to volume overloaded Increased lasix to 80 mg BID IV and aldactone BID Cr got worse likely from volume loss from diarrhea and high dose of diurectics Would decrease lasix to 60 mg BID, diarrhea resolved, monitor cr, f/u cards recs - Atrial fibrillation (HCC) ? On eliquis. S/p pacemaker. Monitor on tele. - Pacemaker ? Had recent device interrogation 12/2017. - CAD (coronary artery disease) ? CABGx2 (DEBORAH-LAD, SVG-PDA ) in 2004 - Uncontrolled type 2 diabetes mellitus with stage 3 chronic kidney disease, with long-term current use of insulin ([facility]) ? HbA1c: 12.0. ?Endocrinology consulted. On Lantus 30 units AM and 40 units HS, Humalog 12 uints with each meals plus sliding scale. Increased HS dose of Lantus to 44 units. Fasting sugars are improving - Essential hypertension ? Stable, continue home meds. ?? - Sleep apnea ? Wears CPAP at home, continue. ?? Acute renal failure: Creat still worsning due to over diuresis D/w nephro - giving some fluid for now. Consulted nephro Slight improvement today. Hold off lasix and aldactone today ?? Acute diarrhea Resolved ?? SUBJECTIVE INTERVAL HPI: Feels some nausea this am. Still SOB is better. No fever, chills, cp nor palpitations. No events overnight MEDICATIONS: Reviewed Current Facility-Administered Medications: docusate sodium 100 mg cap(s) (COLACE) 100 mg ORAL BID Radha Adams) Thuestad 100 mg at 02/02/18 1046 polyethylene glycol 3350 17 g packet (MIRALAX, GLYCOLAX) 17 g ORAL DAILY Radha Adams) Thuestad 17 g at 02/02/18 1046 bisacodyl 10 mg suppository (DULCOLAX) 10 mg RECTAL DAILY PRN Radha Adams) Thuestad NaCl 0.9% iv infusion 75 mL/hr INTRAVENOUS CONTINUOUS Malena A Argekar Last Rate: 75 mL/hr at 02/02/18 1052 75 mL/hr at 02/02/18 1052 sodium chloride 0.65 % 2 Parker (AYR, OCEAN) 2 Parker EACH NOSTRIL PRN Zuhair Wick apixaban 2.5 mg tab(s) (ELIQUIS) 2.5 mg ORAL BID Radha Adams) Thuestad 2.5 mg at 02/02/18 0850 gabapentin 200 mg cap(s) (NEURONTIN) 200 mg ORAL BID Malena A Argekar 200 mg at 02/02/18 0850 insulin glargine 50 Units injection (long acting) (LANTUS) 50 Units SUBCUTANEOUS AT BEDTIME Som Jodie 50 Units at 02/01/183 insulin glargine 36 Units injection (long acting) (LANTUS) 36 Units SUBCUTANEOUS DAILY (8 AM) Som Jodie 36 Units at 02/02/18 0851 insulin lispro 17 Units injection (rapid acting) (HumaLOG) 17 Units SUBCUTANEOUS w MEALS Som Jodie ondansetron orally disintegrating 4 mg tab(s) (ZOFRAN ODT) 4 mg ORAL q 6 H PRN Zuhair Wick 4 mg at 02/02/18 0807 acetaminophen 650 mg tab(s) (TYLENOL) 650 mg ORAL q 6 H PRN Leonard Santiagoubber 650 mg at 01/30/18 2137 insulin lispro injection (rapid acting) (HumaLOG) SUBCUTANEOUS w MEALS AND HS Saminder Rachel 3 Units at 02/01/18 1656 simvastatin 40 mg tab(s) (ZOCOR) 40 mg ORAL AT BEDTIME Raymond Rangel (Pa) 40 mg at 02/01/18 2113 ipratropium-albuterol 3 mL nebulizer solution (DUONEB) 3 mL INHALATION q 4 H PRN Raymond Rangel (Pa) 3 mL at 02/01/[address] 40 mg tab(s) (PROTONIX) 40 mg ORAL BID Raymond (Gorge) Claire 40 mg at 02/02/18 0850 bacitracin 1 application topical ointment 1 application TOPICAL BID Raymond (Gorge) Claire 1 application at 02/02/18 1031 isosorbide mononitrate ER 60 mg tab(s) (IMDUR) 60 mg ORAL DAILY Raymond (Gorge) Claire 60 mg at 02/02/18 0851 0.9% NaCl 3-5 mL 3-5 mL INTRAVENOUS q 12 H Raymond (Gorge) Claire 5 mL at 02/02/18 0900 dextrose 40 % 15 g 15 g ORAL PRN Raymond (Gorge) Claire Or glucagon 1 mg injection (GLUCAGEN) 1 mg INTRAMUSCULAR PRN Raymond (Gorge) Claire Or dextrose 50% in water 25 mL syringe 12.5 g INTRAVENOUS PRN Raymond (Gorge) Claire miconazole 2 % 1 application topical powder (LOTRIMIN AF, DESENEX) 1 application TOPICAL BID Gloria Ebonie Lucrecia 1 application at 02/02/18 1034 OBJECTIVE PHYSICAL EXAM: BP 121/52 Pulse 50 Temp (Src) 97.8 (Oral) Resp 18 Ht 5' 8 (1.73m) Wt 232 lb 8 oz (105.5kg) SpO2 99% BMI 35.36 kg/(m2). GENERAL: Alert, no distress, cooperative, Morbidly Obese SKIN: Skin color, texture, turgor normal. No rashes or lesions. EYES: PERRLA, EOMI OROPHARYNX: Lips, mucosa, and tongue normal. Teeth and gums normal. Oropharynx normal. NECK: No jugulovenous distention, No carotid bruits, Carotid pulse normal contour, Supple LUNGS: Lungs clear to auscultation, Good diaphragmatic excursion CARDIAC: Normal S1 and S2; no rubs, murmurs, or gallops ABDOMEN: Abdomen soft, non-tender, BS normal, No masses or organomegaly EXTREMITIES: Extremities normal, no deformities, edema, clubbing or skin discoloration. Good capillary refill., No ulcers NEURO: Gait normal. Reflexes normal and symmetric. Sensation grossly intact, Cranial nerves II-XII intact PULSES: 2+ radial, 2+ carotid DATA: Diagnostic tests reviewed for today's visit: Most recent labs CBC: WBC 7.63 02/02/2018 HEMOGLOBIN 10.9 02/02/2018 HEMATOCRIT 34.1 02/02/2018 PLATELETS 155 02/02/2018 CMP: Sodium 136 02/02/2018 Potassium 5.3 02/02/2018 BUN 75 02/02/2018 Creatinine 2.51 02/02/2018 Glucose 123 02/02/2018 Chloride 97 02/02/2018 CO2 Content, Venous 27 02/02/2018 VTE Prophylaxis: Patient is already anti-coagulated. Disposition: Home with [facility] Plan of care discussed with: Patient SIGNATURE: Radha Edmonds MD DATE: February 02, 2018 TIME: 7:39 PM CHARLOTTE LEARY RN, RN 02/03/2018 6:30 PM Signed Nursing Progress Note Patient Name: Luz Baca Patient Location: [id number] Daily Note:0828: Endocrinology paged at this time and Dr. Bowman notified of pts blood glucose reading 76 this AM. He states he will review her information and make necessary changes to her AM insulin regimen. Pts breakfast tray has arrived and she is now consuming. 1205: Endo notified blood glucose reads 55; he has given verbal orders to admin half of the scheduled 17 units to the patient post-consumption. She has been given juice and isma crackers until her lunch tray arrives. 1330: Pt has finished lunch, consuming 100% of her tray. As instructed, half of pts scheduled humalog has been given. 1549: Blood glucose re-check reads 74. 1739: Dr. Bowman has been notified pts glucose reads 73; he has given verbal orders to admin half of the scheduled dose of insulin post-consumption. This note was completed by: CHARLOTTE LEARY, ALLYSON Gonzalez RN, RN 02/03/2018 9:43 AM Signed MULTIDISCIPLINARY ROUNDS SERVICE DATE: 02/03/2018 ADMISSION DATE: 01/27/2018 SERVICE TIME: 9:41 AM ANTICIPATED D/C DATE: 1-2 days Problem List: ACTIVE PROBLEM LIST Cad (Coronary Artery Disease) Essential Hypertension Hyperlipidemia Copd (Chronic Obstructive Pulmonary Disease) ([facility]) Sleep Apnea Gerd (Gastroesophageal Reflux Disease) Arthritis Depression Atrial Fibrillation ([facility]) Uncontrolled Type 2 Diabetes Mellitus With Stage 3 Chronic Kidney Disease, With Long-Term Current Use of Insulin ([facility]) Class 1 Obesity Due to Excess Calories With Serious Comorbidity in Adult Gout Pacemaker Chronic Combined Systolic and Diastolic Chf (Congestive Heart Failure) ([facility]) Pulmonary Hypertension Chest Pain in Adult Attendees Present at Rounds: Group Work Program Aide: Vanessa Patient: Luz Franco Keven Staff Nurse: Charlotte Needs Discussed on Rounds: Plan of Care Anticipated Discharge Disposition: Home with Home Health Care Last Vitals: BP 135/45 Pulse 64 Temp (Src) 97.9 (Oral) Resp 18 Ht 5' 8 (1.73m) Wt 229 lb 8 oz (104.1kg) SpO2 96% BMI 34.90 kg/(m2). From home with dtr. On Chronic 2.5 LO2 at home., active with [facility], Dtr will transport. This note routed [facility] Nursing: Cardiac Intervention(s) Plan: Monitor and Assess Vital Signs and IANDO Report Significant Changes to LIP;Monitor Labs;Monitor Rhythm Strips and EKG and Report Changes to LIP;Oxygen as Ordered;Review Current Medication and Medication History and Administer Medications as Ordered;Review Medications, Self I ANDO, Daily Weights, Diet and Fluid Restriction and Activity Level;Notify LIP for Changes to Baseline Status Cardiac Goals/Outcomes: Displays No Signs of Ectopy;[employer], Cardiac Enzymes, K, Mg, Hgb/Hct Levels Within Normal;Patient Optimal Cardiac Function Evidence by: Vital Signs Stable, Control Chest Pain, Adequate Oxygenation, Cardiac Goal Target Achievement Date: 02/04/18luid/Electrolyte Intervention(s) Plan: Assess for Signs/Symptom of Dehydration and Fluid Overload;Monitor Lab Values;Monitor Patient Vital Signs and Intake and Output;Report Changes in Patient's Condition;Notify LIP for Changes to Baseline Status Fluid/Electrolyte Goals/Outcomes: Appropriate Fluid and Electrolyte Balance Achieved and Maintained Fluid/Electrolyte Goal Target Achievement Date: 02/04/18 Risk for Infection Intervention(s) Plan: Assess and Administer Medications;Assess Vital Signs;Assess Signs/Symptom of Infection;Maintain Hand Hygiene;Monitor Labs and Cultures;Review Current Medication and Medication History and Administer Medications as Ordered;Notify LIP for Changes to Baseline Status Risk for Infection Goals/Outcomes: Patient Without Signs/Symptoms of Infections Risk For Infection Goal Target Achievement Date: 02/04/18 Mobility Intervention(s) Plan: Mobility Assist Device;Notify LIP for Changes to Baseline Status (Unexplained Decrease in IFMS Score);Pain Management;Assist with Ambulation and Transfers;[place] Safety Measures;Pressure Ulcer Prevention;Review Current Medication and Medication History and Administer Medications as Ordered Mobility Patient/Family Goals: Patient Attained Highest Level of Functional of Mobility Mobility Goal Target Achievement Date: 02/04/18 DOCUMENTED BY: Vanessa Gonzalez RN PATIENT NAME: Luz Baca DATE: February 03, 2018 TIME: 9:41 AM CSN: [id number] Malena Bray MD 02/03/2018 10:34 AM Signed Patient seen and examined. Nausea is improved. Breathing at baseline. Swelling at baseline. No chest pain or SOB Blood pressure (!) 135/45, pulse 64, temperature 36.6 ?C (97.9 ?F), temperature source Oral, resp. rate 18, height 172.7 cm (5' 8), weight 104.1 kg (229 lb 8 oz), SpO2 96 %. Intake/Output Summary (Last 24 hours) at 02/03/18 1032 Last data filed at 02/03/18 0858 Gross per 24 hour Intake 3320.7 ml Output 200 ml Net 3120.7 ml Gen: weak Resp: diminished BS with some mild wheezing CVS: no rub Abd: soft Ext: trace to 1+ edema K 5.1, Cr 2.46, Uric 15.7 Hb 10.8 Urine Na < 10 Vit D 15, PTH 198 Renal US no obstruction Impression: 1. ROMÁN on CKD 3 due to diuresis of right > left CHF -poor renal perfusion suggested by low urine Na 2. Edema multifactorial from right sided CHF and gabapentin 3. Hyperkalemia due to #1 and recent spironolactone 4. Underlying CKD 3 followed by my partner Dr. Martin 5. Hyperuricemia ? Plan: 1. Continue to hold all diuretics 2. No IVF today 3. Low K diet; no potassium supplementation 4. Add oral Vit D and recheck PTH/Vit D in 3 months 6. Follow up urine alb/creat 7. Decreased gabapentin to 200mg BID due to contribution to edema 8. Start allopurinol 100mg daily ? Radha Edmonds MD 02/03/2018 2:57 PM Signed HOSPITAL MEDICINE PROGRESS NOTE Name: Luz Baca SERVICE DATE: 02/03/2018 SERVICE TIME: 2:49 PM LOCATION / ROOM: [id number] Hospital Medicine/Primary Attending: Radha Edmonds MD NIGHT COVERAGE BETWEEN 5.30P-7.30A Page [id number] ASSESSMENT AND PLAN Chest pain in adult ? HS trop 55, repeat 56 which is similar to readings at previous admission likely from CKD. Pt had external stress test 07/2017: no evidence of ischemia. Troponin 0.050 to 0.059 to 0.076, monitor on tele. Cards consulted. F/u recs - Chronic combined systolic and diastolic CHF (congestive heart failure) (HCC) ? Pt was just hospitalized for CHF exacerbation from 01/20/18-01/23/18. BNP 1300 improved from 2145 from last admit. But?still believe her symptoms related to volume overloaded Increased lasix to 80 mg BID IV and aldactone BID Cr got worse likely from volume loss from diarrhea and high dose of diurectics Would decrease lasix to 60 mg BID, diarrhea resolved, monitor cr, f/u cards recs - Atrial fibrillation (HCC) ? On eliquis. S/p pacemaker. Monitor on tele. - Pacemaker ? Had recent device interrogation 12/2017. - CAD (coronary artery disease) ? CABGx2 (DEBORAH-LAD, SVG-PDA ) in 2004 - Uncontrolled type 2 diabetes mellitus with stage 3 chronic kidney disease, with long-term current use of insulin (HCC) ? HbA1c: 12.0. ?Endocrinology consulted. On Lantus 30 units AM and 40 units HS, Humalog 12 uints with each meals plus sliding scale. Increased HS dose of Lantus to 44 units. Fasting sugars are improving - Essential hypertension ? Stable, continue home meds. ?? - Sleep apnea ? Wears CPAP at home, continue. ?? Acute renal failure: ?Kidney function most likely got worse due to over diuresis D/w nephro - giving some fluid for now. ?Slight improvement today. ?Hold off aldactone today Started on oral lasix ?? Acute diarrhea ?Resolved SUBJECTIVE INTERVAL HPI: Feels ok. Still concerned over the creatinine level. No fever, chills, cp nor palpitations. No events overnight MEDICATIONS: Reviewed Current Facility-Administered Medications: [START ON 02/04/2018] insulin glargine 28 Units injection (long acting) (LANTUS) 28 Units SUBCUTANEOUS DAILY (8 AM) Dina Bowman MD insulin glargine 40 Units injection (long acting) (LANTUS) 40 Units SUBCUTANEOUS AT BEDTIME Dina Bowman MD cholecalciferol 1,000 Units tab(s) (VITAMIN D3) 1,000 Units ORAL DAILY Malena A Argekar 1,000 Units at 02/03/18 0855 allopurinol 100 mg tab(s) (ZYLOPRIM) 100 mg ORAL DAILY Malena A Argekar 100 mg at 02/03/18 1330 docusate sodium 100 mg cap(s) (COLACE) 100 mg ORAL BID Radha Adams) Thuestad 100 mg at 02/02/18 2146 polyethylene glycol 3350 17 g packet (MIRALAX, GLYCOLAX) 17 g ORAL DAILY Radha Adams) Thuestad 17 g at 02/02/18 1046 bisacodyl 10 mg suppository (DULCOLAX) 10 mg RECTAL DAILY PRN Radha Adams) Thuestad sodium chloride 0.65 % 2 Parker (AYR, OCEAN) 2 Parker EACH NOSTRIL PRN Zuhair Wick apixaban 2.5 mg tab(s) (ELIQUIS) 2.5 mg ORAL BID Radha Adams) Thuestad 2.5 mg at 02/03/18 0849 gabapentin 200 mg cap(s) (NEURONTIN) 200 mg ORAL BID Malena A Argekar 200 mg at 02/03/18 0848 insulin lispro 17 Units injection (rapid acting) (HumaLOG) 17 Units SUBCUTANEOUS w MEALS Som Feliciano 8.5 Units at 02/03/18 1330 ondansetron orally disintegrating 4 mg tab(s) (ZOFRAN ODT) 4 mg ORAL q 6 H PRN Zuhair Hdztopher JoseDelano 4 mg at 02/02/18 0807 acetaminophen 650 mg tab(s) (TYLENOL) 650 mg ORAL q 6 H PRN Leonard Santiagoubber 650 mg at 01/30/18 2137 insulin lispro injection (rapid acting) (HumaLOG) SUBCUTANEOUS w MEALS AND HS Francis Burdenra 3 Units at 02/02/18 2145 simvastatin 40 mg tab(s) (ZOCOR) 40 mg ORAL AT BEDTIME Raymond (Gorge) Claire 40 mg at 02/02/18 2146 ipratropium-albuterol 3 mL nebulizer solution (DUONEB) 3 mL INHALATION q 4 H PRN Raymond (Gorge) Claire 3 mL at 02/01/[address] 40 mg tab(s) (PROTONIX) 40 mg ORAL BID Raymond (Gorge) Claire 40 mg at 02/03/18 0849 bacitracin 1 application topical ointment 1 application TOPICAL BID Raymond (Gorge) Claire 1 application at 02/03/18 0851 isosorbide mononitrate ER 60 mg tab(s) (IMDUR) 60 mg ORAL DAILY Raymond (Gorge) Claire 60 mg at 02/03/18 0849 0.9% NaCl 3-5 mL 3-5 mL INTRAVENOUS q 12 H Raymond (Gorge) Claire 5 mL at 02/03/18 0847 dextrose 40 % 15 g 15 g ORAL PRN Raymond (Gorge) Claire Or glucagon 1 mg injection (GLUCAGEN) 1 mg INTRAMUSCULAR PRN Raymond (Gorge) Claire Or dextrose 50% in water 25 mL syringe 12.5 g INTRAVENOUS PRN Raymond (Gorge) Claire miconazole 2 % 1 application topical powder (LOTRIMIN AF, DESENEX) 1 application TOPICAL BID Gloria Ebonie Singer 1 application at 02/03/18 0851 OBJECTIVE PHYSICAL EXAM: BP 109/61 Pulse 74 Temp (Src) 98.4 (Oral) Resp 18 Ht 5' 8 (1.73m) Wt 229 lb 8 oz (104.1kg) SpO2 98% BMI 34.90 kg/(m2). GENERAL: Alert, no distress, cooperative, Morbidly Obese SKIN: Skin color, texture, turgor normal. No rashes or lesions. EYES: PERRLA, EOMI OROPHARYNX: Lips, mucosa, and tongue normal. Teeth and gums normal. Oropharynx normal. NECK: No jugulovenous distention, No carotid bruits, Carotid pulse normal contour, Supple LUNGS: Lungs clear to auscultation, Good diaphragmatic excursion CARDIAC: Normal S1 and S2; no rubs, murmurs, or gallops ABDOMEN: Abdomen soft, non-tender, BS normal, No masses or organomegaly EXTREMITIES: Extremities normal, no deformities, edema, clubbing or skin discoloration. Good capillary refill., No ulcers NEURO: Reflexes normal and symmetric. Sensation grossly intact, Cranial nerves II-XII intact PULSES: 2+ radial, 2+ carotid DATA: Diagnostic tests reviewed for today's visit: Most recent labs CBC: WBC 6.10 02/03/2018 HEMOGLOBIN 10.8 02/03/2018 HEMATOCRIT 34.5 02/03/2018 PLATELETS 151 02/03/2018 CMP: Sodium 136 02/03/2018 Potassium 5.1 02/03/2018 BUN 75 02/03/2018 Creatinine 2.46 02/03/2018 Glucose 75 02/03/2018 Chloride 98 02/03/2018 CO2 Content, Venous 27 02/03/2018 VTE Prophylaxis: Patient is already anti-coagulated. Disposition: Home with [facility] Plan of care discussed with: Patient SIGNATURE: Radha Edmonds MD DATE: February 03, 2018 TIME: 2:49 PM CHARLOTTE LEARY RN, RN 02/04/2018 6:46 PM Signed Nursing Progress Note Patient Name: Luz Baca Patient Location: [id number] Daily Note:4339: Attending paged to address potassium reading 5.2 this AM. 0835: Pt c/o intermittent nausea without emesis. She states this chronically happens; zofran subL given. 1014: Scheduled humalog with meals has been decreased to 10u per Dr. Bowman. 1140: IVF initiated at this time per Dr. Bray at 75cc/hr. 1800: Dr. Nair notified of glucose reading 64; pt has been given a apple juice to drink until her dinner tray gets here, and verbal orders have been given per the physician to only admin 5u humalog post consumption if the patient eats 100% of her meal tray. If she doesn't eat 100 percent we are to hold the dose entirely. This note was completed by: ALLYSON ANDERSON MD 02/04/2018 11:06 AM Addendum Patient seen and examined. She had some SOB yesterday - now improved. No current N/V. She feels tired. Blood pressure 111/72, pulse 78, temperature 36.3 ?C (97.3 ?F), temperature source Oral, resp. rate 18, height 172.7 cm (5' 8), weight 97.3 kg (214 lb 9.6 oz), SpO2 96 %. Intake/Output Summary (Last 24 hours) at 02/04/18 1103 Last data filed at 02/04/18 0800 Gross per 24 hour Intake 818 ml Output 801 ml Net 17 ml Gen: weak Resp: diminished BS with some mild wheezing CVS: no rub Abd: soft Ext: trace to 1+ edema K 5.2, Cr 2.5 Hb 11.4 Urine Na < 10, Up/c 0.1 Vit D 15, PTH 198 Renal US no obstruction Impression: 1. ROMÁN on CKD 3 due to diuresis of right > left CHF -poor renal perfusion suggested by low urine Na 2. Edema multifactorial from right sided CHF and gabapentin 3. Hyperkalemia due to #1 and recent spironolactone 4. Underlying CKD 3 followed by my partner Dr. Martin 5. Hyperuricemia ? Plan: 1. Continue to hold all diuretics 2. IVF x 500cc today 3. Low K diet; no potassium supplementation 4. Added oral Vit D and recheck PTH/Vit D in 3 months 5. Decreased gabapentin to 200mg BID due to contribution to edema 6. Started allopurinol 100mg daily ? Previous Version Radha Edmonds MD 02/04/2018 3:03 PM Signed HOSPITAL MEDICINE PROGRESS NOTE Name: Luz Baca SERVICE DATE: 02/04/2018 SERVICE TIME: 3:00 PM LOCATION / ROOM: [facility]/[id number] Hospital Medicine/Primary Attending: Radha Edmonds MD NIGHT COVERAGE BETWEEN 5.30P-7.30A Page [id number] ASSESSMENT AND PLAN Chest pain in adult ? HS trop 55, repeat 56 which is similar to readings at previous admission likely from CKD. Pt had external stress test 07/2017: no evidence of ischemia. Troponin 0.050 to 0.059 to 0.076, monitor on tele. Cards consulted. F/u recs - Chronic combined systolic and diastolic CHF (congestive heart failure) (HCC) ? Pt was just hospitalized for CHF exacerbation from 01/20/18-01/23/18. BNP 1300 improved from 2145 from last admit. But?still believe her symptoms related to volume overloaded Increased lasix to 80 mg BID IV and aldactone BID Cr got worse likely from volume loss from diarrhea and high dose of diurectics Would decrease lasix to 60 mg BID, diarrhea resolved, monitor cr, f/u cards recs - Atrial fibrillation (HCC) ? On eliquis. S/p pacemaker. Monitor on tele. - Pacemaker ? Had recent device interrogation 12/2017. - CAD (coronary artery disease) ? CABGx2 (DEBORAH-LAD, SVG-PDA ) in 2004 - Uncontrolled type 2 diabetes mellitus with stage 3 chronic kidney disease, with long-term current use of insulin (HCC) ? HbA1c: 12.0. ?Endocrinology consulted. On Lantus 30 units AM and 40 units HS, Humalog 12 uints with each meals plus sliding scale. Increased HS dose of Lantus to 44 units. Fasting sugars are improving - Essential hypertension ? Stable, continue home meds. ?? - Sleep apnea ? Wears CPAP at home, continue. ?? Acute renal failure: ?Kidney function most likely got worse due to over diuresis ?D/w nephro - giving some fluid for now. ?Slight worse again today. ?Hold off aldactone today Restarted on some IV fluids ?? Acute diarrhea ?Resolved ? SUBJECTIVE INTERVAL HPI: Feels ok better. No fever, chills, cp nor palpitations. No events overnight MEDICATIONS: Reviewed Current Facility-Administered Medications: insulin lispro 10 Units injection (rapid acting) (HumaLOG) 10 Units SUBCUTANEOUS w MEALS Dina Bowman MD 10 Units at 02/04/18 1126 NaCl 0.9% iv infusion 75 mL/hr INTRAVENOUS CONTINUOUS Malena A Argekar Last Rate: 75 mL/hr at 02/04/18 1126 75 mL/hr at 02/04/18 1126 insulin glargine 28 Units injection (long acting) (LANTUS) 28 Units SUBCUTANEOUS DAILY (8 AM) Dina Bowman MD 28 Units at 02/04/18 0836 insulin glargine 40 Units injection (long acting) (LANTUS) 40 Units SUBCUTANEOUS AT BEDTIME Dina Bowman MD cholecalciferol 1,000 Units tab(s) (VITAMIN D3) 1,000 Units ORAL DAILY Malena A Argekar 1,000 Units at 02/04/18 0835 allopurinol 100 mg tab(s) (ZYLOPRIM) 100 mg ORAL DAILY Malena A Argekar 100 mg at 02/04/18 0835 docusate sodium 100 mg cap(s) (COLACE) 100 mg ORAL BID Radha Adams) Thuestad 100 mg at 02/04/18 0843 polyethylene glycol 3350 17 g packet (MIRALAX, GLYCOLAX) 17 g ORAL DAILY Radha Adams) Thuestad 17 g at 02/02/18 1046 bisacodyl 10 mg suppository (DULCOLAX) 10 mg RECTAL DAILY PRN Radha Adams) Thuestad sodium chloride 0.65 % 2 Parker (AYR, OCEAN) 2 Parker EACH NOSTRIL PRN Zuhair Wick apixaban 2.5 mg tab(s) (ELIQUIS) 2.5 mg ORAL BID Radha Adams) Thuestad 2.5 mg at 02/04/18 0836 gabapentin 200 mg cap(s) (NEURONTIN) 200 mg ORAL BID Malena A Argekar 200 mg at 02/04/18 0835 ondansetron orally disintegrating 4 mg tab(s) (ZOFRAN ODT) 4 mg ORAL q 6 H PRN Zuhair Wick 4 mg at 02/04/18 0835 acetaminophen 650 mg tab(s) (TYLENOL) 650 mg ORAL q 6 H PRN Leonard Ortiz 650 mg at 01/30/18 2137 insulin lispro injection (rapid acting) (HumaLOG) SUBCUTANEOUS w MEALS AND HS Saminder Rachel 1 Units at 02/04/18 0844 simvastatin 40 mg tab(s) (ZOCOR) 40 mg ORAL AT BEDTIME Raymond Nayak) Claire 40 mg at 02/03/18 2041 ipratropium-albuterol 3 mL nebulizer solution (DUONEB) 3 mL INHALATION q 4 H PRN Raymond (Gorge) Claire 3 mL at 02/03/[address] 40 mg tab(s) (PROTONIX) 40 mg ORAL BID Raymond (Gorge) Claire 40 mg at 02/04/18 0835 bacitracin 1 application topical ointment 1 application TOPICAL BID Raymond (Gorge) Calire 1 application at 02/04/18 0843 isosorbide mononitrate ER 60 mg tab(s) (IMDUR) 60 mg ORAL DAILY Raymond (Gorge) Claire 60 mg at 02/04/18 0836 0.9% NaCl 3-5 mL 3-5 mL INTRAVENOUS q 12 H Raymond (Gorge) Claire 5 mL at 02/04/18 0836 dextrose 40 % 15 g 15 g ORAL PRN Raymond (Gorge) Claire Or glucagon 1 mg injection (GLUCAGEN) 1 mg INTRAMUSCULAR PRN Raymond (Gorge) Claire Or dextrose 50% in water 25 mL syringe 12.5 g INTRAVENOUS PRN Raymond (Gorge) Claire miconazole 2 % 1 application topical powder (LOTRIMIN AF, DESENEX) 1 application TOPICAL BID Gloria Singer 1 application at 02/04/18 0844 OBJECTIVE PHYSICAL EXAM: BP 117/62 Pulse 119 Temp (Src) 97.9 (Oral) Resp 19 Ht 5' 8 (1.73m) Wt 214 lb 9.6 oz (97.3kg) SpO2 98% BMI 32.64 kg/(m2). GENERAL: Alert, no distress, cooperative, morbid obesity SKIN: Skin color, texture, turgor normal. No rashes or lesions. EYES: PERRLA, EOMI OROPHARYNX: Lips, mucosa, and tongue normal. Teeth and gums normal. Oropharynx normal. NECK: No jugulovenous distention, No carotid bruits, Carotid pulse normal contour, Supple LUNGS: Lungs clear to auscultation, Good diaphragmatic excursion CARDIAC: Normal S1 and S2; no rubs, murmurs, or gallops ABDOMEN: Abdomen soft, non-tender, BS normal, No masses or organomegaly EXTREMITIES: Extremities normal, no deformities, edema, clubbing or skin discoloration. Good capillary refill., No ulcers NEURO: Gait normal. Reflexes normal and symmetric. Sensation grossly intact, Cranial nerves II-XII intact PULSES: 2+ radial, 2+ carotid DATA: Diagnostic tests reviewed for today's visit: Most recent labs CBC: WBC 6.54 02/04/2018 HEMOGLOBIN 11.4 02/04/2018 HEMATOCRIT 36.2 02/04/2018 PLATELETS 160 02/04/2018 CMP: Sodium 133 02/04/2018 Potassium 5.2 02/04/2018 BUN 77 02/04/2018 Creatinine 2.53 02/04/2018 Glucose 156 02/04/2018 Chloride 96 02/04/2018 CO2 Content, Venous 25 02/04/2018 VTE Prophylaxis: Patient is already anti-coagulated. Disposition: Home and Home with [facility] Plan of care discussed with: Patient SIGNATURE: Radha Edmonds MD DATE: February 04, 2018 TIME: 3:00 PM Janet Pineda, RN, RN 02/04/2018 8:26 PM Signed Nursing Progress Note Patient Name: Luz Baca [place] [facility] [id number] Daily Note: 1999 Patient called with c/o SOB. Patient sitting at edge of bed. States is often short of breath. PRN breathing treatment ordered per DEC. Will continue to monitor. 2014 Patient reports eating 100% of dinner tray. Per [address] Nair, will give 5 U humalog and continue to monitor. 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 Patient states she was bleeding out of nose and mouth after one dose. - Bactrim [Sulfametho* Other: See Comments My throat swells up. - Latex Rash, Itching Itching and welts. No wheezing or shortness of breath. - Penicillins Rash, Itching Tolerated ceftriaxone during 11/2017 admission and cefepime during 12/2017 admission - Tetracycline Rash, GI Upset Emesis and diarrhea. - Atorvastatin Rash - Codeine Other: See Comments Numbness - Dilaudid [Hydromorp* Mental Status Change - Meperidine - Pentazocine - Pioglitazone Unknown - Propoxyphene Current REGULATOR ASSEMBLER Medications: Prior to Admission medications as of 01/27/182047 Medication Sig Last Dose Taking furosemide (LASIX) 40 mg tablet Take 80 mg by mouth twice daily. 01/27/2018 at 0800 Yes gabapentin (NEURONTIN) 300 mg capsule Take 600 mg by mouth twice daily. 01/27/2018 at 0800 Yes insulin aspart U-100 (NOVOLOG FLEXPEN U-100 INSULIN) 100 unit/mL inpn Inject 12 Units subcutaneously three times daily with meals. 01/27/2018 at Unknown time Yes insulin glargine (LANTUS SOLOSTAR U-100 INSULIN) 100 unit/mL (3 mL) inpn Inject 50 Units subcutaneously every morning. 01/27/2018 at 0800 Yes insulin glargine (LANTUS SOLOSTAR U-100 INSULIN) 100 unit/mL (3 mL) inpn Inject 36 Units subcutaneously daily at bedtime. 01/26/2018 at [address] (PROTONIX) 40 mg tablet Take 40 mg by mouth twice daily. 01/27/2018 at 0800 Yes potassium chloride (K-TAB) 10 mEq tablet Take 10 mEq by mouth daily with breakfast. 01/27/2018 at 0800 Yes bacitracin (ANTIBIOTIC, BACITRACIN ZINC,) ointment Apply 1 application to affected area twice daily. 01/27/2018 at Unknown time Yes nystatin (NYSTOP) powder Apply 1 application to affected area three times daily. Unknown at Unknown time Yes isosorbide mononitrate ER (IMDUR) 60 mg 24 hr tablet Take 1 tablet by mouth once daily. 01/27/2018 at 0800 Yes apixaban (ELIQUIS) 5 mg tab(s) Take 5 mg by mouth twice daily. 01/27/2018 at 0800 Yes simvastatin (ZOCOR) 40 mg tablet Take 40 mg by mouth every morning. 01/27/2018 at 0800 Yes spironolactone (ALDACTONE) 25 mg tablet Take 1 tablet by mouth once daily. 01/27/2018 at 0800 Yes ipratropium-albuterol (DUONEB) 0.5 mg-3 mg(2.5 mg base)/3 mL nebu Inhale 3 mL as instructed every 4 hours as needed. Unknown at Unknown time Yes guaiFENesin-dextromethorphan (ROBITUSSIN DM) 100-10 mg/5 mL syrup Take 5-10 mL by mouth every 6 hours as needed for Cough. Unknown at Unknown time Yes nitroglycerin sublingual (NITROQUICK) 0.4 mg SL tablet Dissolve 1 tablet under the tongue every 5 minutes as needed. Unknown at Unknown time Yes OXYGEN, HOME THERAPY, Inhale 2.5 L/min as instructed continuous. 3 L/min when leaves home. Unknown at Unknown time Yes AKUA MULLER, CONTACT LENS BLOCKER February 05, 2018 8:28 AM Shruti Nair MD 02/05/2018 10:23 AM Signed DIABETES PROGRESS NOTE PATIENT NAME: Luz Baca SERVICE DATE: 02/05/2018 ASSESSMENT AND PLAN Ms. Baca is a 77 year old female with a 15?year history of Diabetes Mellitus Type 2 hyperglycemia?who was admitted on 01/27/2018 for chest pain. We are consulted for diabetes mgmt. ? Uncontrolled type 2 diabetes BG were very tight yesterday, hypoglycemia noted yesterday evening ? Decrease humalog to7?units AC TID ? Continue Lantus 40?units QHS and 28 units QAM ? change?Supplemental Sliding Scale: Humalog Program #2 AC ? ? Accuchecks: AC/HS ? notify endocrinology if BG < 80 or > 200 ? ? Interval HPI + variable PO intake Insulin requirement have decreased Hypoglycemic event noted yesterday ?+ cough Preadmission insulin regimen: Lantus 50?units ?Q am and 36 units at HS Humalog 12?units ?TID and Q AC pen Sliding scale: One unit for every 25?mg/dL PAST MEDICAL HISTORY: PAST MEDICAL HISTORY Diagnosis Date - Arthritis - Atrial fibrillation ([facility]) - CAD (coronary artery disease) stents x9, defibrillator, CABG. Seeing Dr. Cardona - Cardiac defibrillator in place - Cardiomegaly - Carotid artery disease ([facility]) left - Chronic kidney disease (CKD) stage G3b/A2, moderately decreased glomerular filtration rate (GFR) between 30-44 mL/min/1.73 square meter and albuminuria creatinine ratio between 30-299 mg/g Dr. Martin - COPD (chronic obstructive pulmonary disease) ([facility]) Dr. Cruz - Depression - Diabetes ([facility]) - Diabetic neuropathy ([facility]) - Edema - GERD (gastroesophageal reflux disease) - Gout with hyperuricemia - HH (hiatus hernia) - HOCM (hypertrophic obstructive cardiomyopathy) ([facility]) S/P Septal Myectomy in 2003. Now with LVEF 50% and mod/severe pulm HTN. - HTN (hypertension) - Hyperlipidemia - Morbid obesity with BMI of 40.0-44.9, adult ([facility]) - Sleep apnea 2011 not on CPAP, unable to tolerate mask 02/2017 - SVT (supraventricular tachycardia) ([facility]) NSVT and questionable VT in 2003 post op CURRENT MEDICATION: Current Facility-Administered Medications: insulin lispro 10 Units injection (rapid acting) (HumaLOG) 10 Units SUBCUTANEOUS w MEALS Dina Bowman MD 10 Units at 02/05/18 0852 insulin glargine 28 Units injection (long acting) (LANTUS) 28 Units SUBCUTANEOUS DAILY (8 AM) Dina Bowman MD 28 Units at 02/05/18 0848 insulin glargine 40 Units injection (long acting) (LANTUS) 40 Units SUBCUTANEOUS AT BEDTIME Dina Bowman MD 40 Units at 02/04/18 2335 cholecalciferol 1,000 Units tab(s) (VITAMIN D3) 1,000 Units ORAL DAILY Malena A Argekar 1,000 Units at 02/04/18 0835 allopurinol 100 mg tab(s) (ZYLOPRIM) 100 mg ORAL DAILY Malena A Argekar 100 mg at 02/04/18 0835 docusate sodium 100 mg cap(s) (COLACE) 100 mg ORAL BID Radha Adams) Thuestad 100 mg at 02/04/18 0843 polyethylene glycol 3350 17 g packet (MIRALAX, GLYCOLAX) 17 g ORAL DAILY Radhaebonie Adams) Thuestad 17 g at 02/02/18 1046 bisacodyl 10 mg suppository (DULCOLAX) 10 mg RECTAL DAILY PRN Radha Adams) Thuestad sodium chloride 0.65 % 2 Parker (AYR, OCEAN) 2 Parker EACH NOSTRIL PRN Zuhair Wick apixaban 2.5 mg tab(s) (ELIQUIS) 2.5 mg ORAL BID Radha Adams) Thuestad 2.5 mg at 02/04/182034 gabapentin 200 mg cap(s) (NEURONTIN) 200 mg ORAL BID Malena A Argekar 200 mg at 02/04/18 2034 ondansetron orally disintegrating 4 mg tab(s) (ZOFRAN ODT) 4 mg ORAL q 6 H PRN Zuhair Wick 4 mg at 02/04/18 0835 acetaminophen 650 mg tab(s) (TYLENOL) 650 mg ORAL q 6 H PRN Leonard Ortiz 650 mg at 02/05/18 0210 insulin lispro injection (rapid acting) (HumaLOG) SUBCUTANEOUS w MEALS AND HS Saminder Rachel 6 Units at 02/05/18 0850 simvastatin 40 mg tab(s) (ZOCOR) 40 mg ORAL AT BEDTIME Raymond Rangel (Pa) 40 mg at 02/04/182034 ipratropium-albuterol 3 mL nebulizer solution (DUONEB) 3 mL INHALATION q 4 H PRN Raymond (Gorge) Claire 3 mL at 02/05/[address] 40 mg tab(s) (PROTONIX) 40 mg ORAL BID Raymond (Gorge) Claire 40 mg at 02/04/182034 bacitracin 1 application topical ointment 1 application TOPICAL BID Raymond (Gorge) Claire 1 application at 02/04/182039 isosorbide mononitrate ER 60 mg tab(s) (IMDUR) 60 mg ORAL DAILY Raymond (Gorge) Claire 60 mg at 02/04/18 0836 0.9% NaCl 3-5 mL 3-5 mL INTRAVENOUS q 12 H Raymond (Gorge) Claire 5 mL at 02/04/182039 dextrose 40 % 15 g 15 g ORAL PRN Raymond (Gorge) Claire Or glucagon 1 mg injection (GLUCAGEN) 1 mg INTRAMUSCULAR PRN Raymond (Gorge) Claire Or dextrose 50% in water 25 mL syringe 12.5 g INTRAVENOUS PRN Raymond (Gorge) Claire miconazole 2 % 1 application topical powder (LOTRIMIN AF, DESENEX) 1 application TOPICAL BID Gloria Ebonie Tawsedricki 1 application at 02/04/182040 CURRENT ALLERGIES: Allergies As of Date: 01/27/2018 Allergen Noted Reaction ASPIRIN 01/20/2018 Other: See Comments BACTRIM [SULFAMETHOXAZOLE-TRIMETH*05/17/2017 Other: See Comments LATEX 05/17/2017 Rash and Itching PENICILLINS 07/14/2004 Rash and Itching TETRACYCLINE 09/29/2010 Rash and GI Upset ATORVASTATIN 05/17/2017 Rash CODEINE 05/17/2017 Other: See Comments DILAUDID [HYDROMORPHONE (BULK)] 05/17/2017 Mental Status Change MEPERIDINE 07/14/2004 PENTAZOCINE 07/14/2004 PIOGLITAZONE 05/17/2017 Unknown PROPOXYPHENE 07/14/2004 Fully Assessed 01/27/2018 COMPLETE REVIEW OF SYSTEMS: General: no fever, chills or acute changes in weight in the last 6 months Skin: no rashes, pruritis or dry skin Cardiac: denies chest pain, heart palpitations or orthopnea Pulmonary: denies wheezing, productive cough or exertional dyspnea GI: denies nausea, vomiting, diarrhea or constipation Neuro: denies numbnes/tingling in hands or feet and denies seizures Musc: denies history of upper or lower extremity weakness Endocrine: denies polyuria, polydipsia, nocturia, blurry vision or excessive fatigue Hematology: Negative for anemia, easy bleeding and bruising. OBJECTIVE PHYSICAL EXAM: BP 130/66 Pulse 65 Temp 36.4 ?C (97.6 ?F) (Temporal Artery) Resp 20 Ht 172.7 cm (5' 8) Wt 105.6 kg (232 lb 12.8 oz) SpO2 98% BMI 35.4 kg/m2 General: Well appearing, alert, in no acute distress, well- hydrated, well nourished. Skin: skin color, texture, turgor normal, no rashes or lesions. Heart: RRR without murmur, gallop, or rubs. No ectopy Pulmonary: Lungs clear to auscultation. No wheezing, rhonchi, rales Abdomen: soft, non-tender, positive bowel sounds Extremities: no edema, no calluses or ulcers present. DATA: Diagnostic tests reviewed for today: Recent Labs 02/05/18 0734 02/04/18 2323 02/04/18 1950 02/04/18 1828 02/04/18 1753 02/04/18 1102 02/04/18 0802 02/03/18 2048 02/03/18 1713 02/03/18 1549 02/03/18 1200 02/03/18 0751 02/02/18 2116 02/02/18 1631 02/02/18 1152 PCGLUCOSE 223* 225* 89 76 64* 95 136* 96 73 74 57* 76 161* 116* 129* Glucose, Point of Care Date Value Ref Range Status 02/05/2018 223 (A) 74 - 99 mg/dL Final Comment: Meter ID:[id number] SIGNATURE: Shruti Nair MD DATE: February 05, 2018 Radha Edmonds MD 02/06/2018 1:10 AM Signed HOSPITAL MEDICINE PROGRESS NOTE Name: Luz Baca SERVICE DATE: 02/05/2018 SERVICE TIME: 10:29 AM LOCATION / ROOM: [id number] Hospital Medicine/Primary Attending: Radha Edmonds MD NIGHT COVERAGE BETWEEN 5.30P-7.30A Page [id number] ASSESSMENT AND PLAN Chest pain in adult HS trop 55, repeat 56 which is similar to readings at previous admission likely from CKD. Pt had external stress test 07/2017: no evidence of ischemia. Troponin 0.050 to 0.059 to 0.076, monitor on tele. Cards consulted. F/u recs ? Chronic combined systolic and diastolic CHF (congestive heart failure) Pt was just hospitalized for CHF exacerbation from 01/20/18-01/23/18. BNP 1300 improved from 2145 from last admit. But?still believe her symptoms related to volume overloaded Increased lasix to 80 mg BID IV and aldactone BID Cr got worse likely from volume loss from diarrhea and high dose of diurectics Monitor cr, f/u cards recs Off Lasix now But ? Worsening CHF with CHF findings on CXR. May need dose of lasix Worsening SOB Patient last night and today have increased work of breathing CXR shows fluid overload/CHF picture Due to not improving renal function did not order lasix. Did do serial exams and later in the day feel better. Acute renal failure Kidney function most likely got worse due to over diuresis D/w nephro - giving some fluid for now. Slight worse again today. Hold off aldactone today Restarted on some IV fluids ? Atrial fibrillation On eliquis. S/p pacemaker. Monitor on tele ? Pacemaker Had recent device interrogation 12/2017 ? CAD (coronary artery disease) CABGx2 (DEBORAH-LAD, SVG-PDA ) in 2003 ? Uncontrolled type 2 diabetes mellitus with stage 3 chronic kidney disease, with long-term current use of insulin HbA1c: 12.0. ?Endocrinology consulted. On Lantus 30 units AM and 40 units HS, Humalog 12 uints with each meals plus sliding scale. Increased HS dose of Lantus to 44 units. Fasting sugars are improving ? Essential hypertension Stable, continue home meds. ? Sleep apnea Wears CPAP at home, continue. ?? Acute diarrhea Resolved ? SUBJECTIVE INTERVAL HPI: Feels worse due to increased work of breathing. No fever, chills, cp nor palpitations. No events overnight. MEDICATIONS: Reviewed Current Facility-Administered Medications: insulin lispro 7 Units injection (rapid acting) (HumaLOG) 7 Units SUBCUTANEOUS w MEALS Shruti Nair insulin lispro injection (rapid acting) (HumaLOG) SUBCUTANEOUS w MEALS Shruti Hasan insulin glargine 28 Units injection (long acting) (LANTUS) 28 Units SUBCUTANEOUS DAILY (8 AM) Dina Bowman MD 28 Units at 02/05/18 0848 insulin glargine 40 Units injection (long acting) (LANTUS) 40 Units SUBCUTANEOUS AT BEDTIME Dina Bowman MD 40 Units at 02/04/18 2335 cholecalciferol 1,000 Units tab(s) (VITAMIN D3) 1,000 Units ORAL DAILY Malena A Argekar 1,000 Units at 02/04/18 0835 allopurinol 100 mg tab(s) (ZYLOPRIM) 100 mg ORAL DAILY Malena A Argekar 100 mg at 02/04/18 0835 docusate sodium 100 mg cap(s) (COLACE) 100 mg ORAL BID Radha Adams) Thuestad 100 mg at 02/04/18 0843 polyethylene glycol 3350 17 g packet (MIRALAX, GLYCOLAX) 17 g ORAL DAILY Wind Gapebonie Adams) Thuestad 17 g at 02/02/18 1046 bisacodyl 10 mg suppository (DULCOLAX) 10 mg RECTAL DAILY PRN Radha Adams) Kendal sodium chloride 0.65 % 2 Parker (AYR, OCEAN) 2 Parker EACH NOSTRIL PRN Zuhair Wick apixaban 2.5 mg tab(s) (ELIQUIS) 2.5 mg ORAL BID Radha Loomis Md Thuestad 2.5 mg at 02/04/182034 gabapentin 200 mg cap(s) (NEURONTIN) 200 mg ORAL BID Malena A Argekar 200 mg at 02/04/182033 ondansetron orally disintegrating 4 mg tab(s) (ZOFRAN ODT) 4 mg ORAL q 6 H PRN Zuhair Wick 4 mg at 02/04/18834 acetaminophen 650 mg tab(s) (TYLENOL) 650 mg ORAL q 6 H PRN Leonard Ortiz 650 mg at 02/05/18 0210 simvastatin 40 mg tab(s) (ZOCOR) 40 mg ORAL AT BEDTIME Raymond Rangel (Pa) 40 mg at 02/04/182034 ipratropium-albuterol 3 mL nebulizer solution (DUONEB) 3 mL INHALATION q 4 H PRN Raymond (Gorge) Claire 3 mL at 02/05/[address] 40 mg tab(s) (PROTONIX) 40 mg ORAL BID Raymond (Gorge) Claire 40 mg at 02/04/182034 bacitracin 1 application topical ointment 1 application TOPICAL BID Raymond (Gorge) Claire 1 application at 02/04/182039 isosorbide mononitrate ER 60 mg tab(s) (IMDUR) 60 mg ORAL DAILY Raymond (Gorge) Claire 60 mg at 02/04/18 0836 0.9% NaCl 3-5 mL 3-5 mL INTRAVENOUS q 12 H Raymond (Gorge) Claire 5 mL at 02/04/182039 dextrose 40 % 15 g 15 g ORAL PRN Raymond (Gorge) Claire Or glucagon 1 mg injection (GLUCAGEN) 1 mg INTRAMUSCULAR PRN Raymond (Gorge) Claire Or dextrose 50% in water 25 mL syringe 12.5 g INTRAVENOUS PRN Raymond (Gorge) Claire miconazole 2 % 1 application topical powder (LOTRIMIN AF, DESENEX) 1 application TOPICAL BID Gloria A Madhupetemalcolmi 1 application at 02/04/182040 OBJECTIVE PHYSICAL EXAM: BP 130/66 Pulse 60 Temp (Src) 97.6 (Temporal Artery) Resp 20 Ht 5' 8 (1.73m) Wt 232 lb 12.8 oz (105.6kg) SpO2 97% BMI 35.41 kg/(m2). GENERAL: Alert, mild to moderate distress from SOB, cooperative SKIN: Skin color, texture, turgor normal. No rashes or lesions. EYES: PERRLA, EOMI OROPHARYNX: Lips, mucosa, and tongue normal. Teeth and gums normal. Oropharynx normal. NECK: No jugulovenous distention, No carotid bruits, Carotid pulse normal contour, Supple LUNGS: Lungs clear to auscultation, Good diaphragmatic excursion CARDIAC: Normal S1 and S2; no rubs, murmurs, or gallops ABDOMEN: Abdomen soft, non-tender, BS normal, No masses or organomegaly EXTREMITIES: Extremities normal, no deformities, edema, clubbing or skin discoloration. Good capillary refill., No ulcers NEURO: Gait normal. Reflexes normal and symmetric. Sensation grossly intact, Cranial nerves II-XII intact PULSES: 2+ radial, 2+ carotid DATA: Diagnostic tests reviewed for today's visit: Most recent labs CBC: WBC 5.91 02/05/2018 HEMOGLOBIN 10.6 02/05/2018 HEMATOCRIT 33.8 02/05/2018 PLATELETS 146 02/05/2018 CMP: Sodium 134 02/05/2018 Potassium 5.1 02/05/2018 BUN 73 02/05/2018 Creatinine 2.55 02/05/2018 Glucose 226 02/05/2018 Chloride 96 02/05/2018 CO2 Content, Venous 27 02/05/2018 VTE Prophylaxis: Patient is already anti-coagulated. Disposition: Home and Home with [facility] Plan of care discussed with: Patient SIGNATURE: Radha Edmonds MD DATE: February 05, 2018 TIME: 10:29 AM Mauro Ramírez MD 02/05/2018 1:54 PM Signed PROGRESS NOTE CARDIOLOGY SERVICE SERVICE DATE: 02/05/2018 SERVICE TIME: 1:19 PM Subjective INTERIM HISTORY: Patient has SOB but had no chest pain, or palpitations or dizziness overnight. MEDICATIONS: Current hospital medications: insulin lispro 7 Units injection (rapid acting) (HumaLOG) 7 Units SUBCUTANEOUS w MEALS insulin lispro injection (rapid acting) (HumaLOG) SUBCUTANEOUS w MEALS insulin glargine 28 Units injection (long acting) (LANTUS) 28 Units SUBCUTANEOUS DAILY (8 AM) insulin glargine 40 Units injection (long acting) (LANTUS) 40 Units SUBCUTANEOUS AT BEDTIME cholecalciferol 1,000 Units tab(s) (VITAMIN D3) 1,000 Units ORAL DAILY allopurinol 100 mg tab(s) (ZYLOPRIM) 100 mg ORAL DAILY docusate sodium 100 mg cap(s) (COLACE) 100 mg ORAL BID polyethylene glycol 3350 17 g packet (MIRALAX, GLYCOLAX) 17 g ORAL DAILY bisacodyl 10 mg suppository (DULCOLAX) 10 mg RECTAL DAILY PRN sodium chloride 0.65 % 2 Parker (AYR, OCEAN) 2 Parker EACH NOSTRIL PRN apixaban 2.5 mg tab(s) (ELIQUIS) 2.5 mg ORAL BID gabapentin 200 mg cap(s) (NEURONTIN) 200 mg ORAL BID ondansetron orally disintegrating 4 mg tab(s) (ZOFRAN ODT) 4 mg ORAL q 6 H PRN acetaminophen 650 mg tab(s) (TYLENOL) 650 mg ORAL q 6 H PRN simvastatin 40 mg tab(s) (ZOCOR) 40 mg ORAL AT BEDTIME ipratropium-albuterol 3 mL nebulizer solution (DUONEB) 3 mL INHALATION q [address] 40 mg tab(s) (PROTONIX) 40 mg ORAL BID bacitracin 1 application topical ointment 1 application TOPICAL BID isosorbide mononitrate ER 60 mg tab(s) (IMDUR) 60 mg ORAL DAILY 0.9% NaCl 3-5 mL 3-5 mL INTRAVENOUS q 12 H dextrose 40 % 15 g 15 g ORAL PRN glucagon 1 mg injection (GLUCAGEN) 1 mg INTRAMUSCULAR PRN dextrose 50% in water 25 mL syringe 12.5 g INTRAVENOUS PRN miconazole 2 % 1 application topical powder (LOTRIMIN AF, DESENEX) 1 application TOPICAL BID Objective PHYSICAL EXAM: Patient Vitals for the past 24 hrs: BP Temp Temp src Pulse Resp SpO2 Weight 02/05/18 1148 128/86 (!) 35.4 ?C (95.7 ?F) Axillary (!) 54 22 99 % - 02/05/18 0954 - - - 60 - - - 02/05/18 0944 - - - 60 20 97 % - 02/05/18 0736 130/66 36.4 ?C (97.6 ?F) Temporal Art 65 20 98 % - 02/05/18 0600 - - - - - - 105.6 kg (232 lb 12.8 oz) 02/05/18 0401 133/60 36.4 ?C (97.6 ?F) Oral 60 20 97 % - 02/05/18 0208 - - - 66 20 - - 02/05/18 0157 - - - 64 20 99 % - 02/04/18 2326 131/83 36.7 ?C (98.1 ?F) Oral 60 20 99 % - 02/04/182026 - - - 66 20 - - 02/04/18 2019 - - - 66 20 98 % - 02/04/18 1944 136/62 36.4 ?C (97.5 ?F) Oral (!) 54 18 98 % - 02/04/18 1539 122/66 36.3 ?C (97.3 ?F) Oral (!) 54 18 99 % - Weight change: 8.255 kg (18 lb 3.2 oz) Body mass index is 35.4 kg/(m2). Intake/Output Summary (Last 24 hours) at 02/05/18 1319 Last data filed at 02/05/18 1000 Gross per 24 hour Intake 1544 ml Output 700 ml Net 844 ml General: Pt is able to communicate. Patient is not in acute respiratory distress. SKIN: No rash or lumps but has chronic venous stasis of the legs bilaterally . Eyes. Pupils are round and accommodative to light. HEENT: Normocephalic, face symmetrical. Normal pinna. Throat is without congestion. Pharyngeal structures are crowded NECK: Supple, no JVD, no carotid bruit, no thyromegaly. LUNGS: Decreased air entry to auscultation bilaterally. Bypass scar on the chest is healed CARDIAC: Irregular rhythm is noted with variable instensity of the S1 and S2, LSB systolic murmur. ABDOMEN: Soft, nontender, bowel sounds present. EXTREMITIES: No cyanosis, clubbing, but has mild pitting pretibial leg edema. PULSES: Peripheral pulses are palpable in Dorsalis pedis and Posterior tibial arteries bilaterally. NEURO: Non-focal. Awake, alert, oriented times 3. Moves all extremities. MUSCULOSKELETAL: No fracture or dislocation of the bones or foints. Recent Labs 02/05/18 1044 02/05/18 0557 TROPT 0.058* -- WBC -- 5.91 RBC -- 3.42* HB -- 10.6* HCT -- 33.8* MCV -- 98.8 MCH -- 31.0 MCHC -- 31.4 PLT -- 146* GLUC -- 226* BUN -- 73* CREAT -- 2.55* NA -- 134* K -- 5.1 CHLOR -- 96* CO2 -- 27 TPROT -- 6.3 ALB -- 3.3* CA -- 8.5 ALKPHOS -- 98 TBILI -- 0.3 AST -- 17 ALT -- 18 Diagnostic tests reviewed Most recent labs and imaging results reviewed. Most recent EKG / Telemetry reviewed. A Fibrillation Echo exam indication: CAD, SOB, s/p myectomy - The left ventricle is normal in size. There is mild left ventricular hypertrophy. Left ventricular systolic function is mildly decreased. EF = 50 ? 5% - The right ventricle is dilated. Right ventricular systolic function is mildly decreased. - The left atrial cavity is moderately dilated. The right atrial cavity is dilated. - There is moderate (2+ - 3+) tricuspid valve regurgitation. - Estimated right ventricular systolic pressure is 78 mmHg consistent with moderately severe pulmonary hypertension. Estimated right atrial pressure is 10 mmHg. - s/p myectomy: LVOT gradient at rest 6 mmHg, trivial-1+ MR. Patient unable to valsalva. - Exam was compared with the prior CC echocardiographic exam performed on Impression/Recommendations Patient Active Hospital Problem List: Chest pain in adult (01/27/2018) Chronic combined systolic and diastolic CHF (congestive heart failure) ([facility]) (12/10/2017) Atrial fibrillation ([facility]) (09/23/2010) Pacemaker () CAD (coronary artery disease) () Uncontrolled type 2 diabetes mellitus with stage 3 chronic kidney disease, with long-term current use of insulin ([facility]) (09/23/2004) Essential hypertension () Sleep apnea () Class 1 obesity due to excess calories with serious comorbidity in adult (2010) 1. ASHD - CABGx3 2003, PCIx6 RCA 2013, PCIx3 2014. Her troponin are chronically elevated due to the Renal dysfunction 2. HCM - septal myectomy 2003 3. CHF - acute on chronic diastolic, DAMION-I/ARB intolerance (CRF) 4. Cardiomyopathy - ischemic, ICD 2015, revised 11/2016 5. HTN 6. PVCs on the monitor - Will start Coreg 3.125 mg BID to assess if she can tolerate this low dose that would be beneficial for the CAD, arrhythmia 7. Defibrillator was check in december 2017 and was normal 8. MARLA - unable to tolerate CPAP - ,ay consider ENT / Hypoglossal nerve stimulator 9. PAF- anticoagulated with apixaban 10. Acute on CKD - Pt can be treated with hydration as her LV function is fair to good. SIGNATURE: Mauro Ramírez MD [facility] PATIENT NAME: Luz Baca DATE: February 05, 2018 TIME: 1:19 PM Cell phone #: [phone] Jordi Cevallos MD 02/05/2018 1:29 PM Signed INPATIENT CONSULT PROGRESS NOTES Patient Name: Luz Baca DATE of SERVICE: February 05, 2018 TIME of SERVICE: 1:24 PM CONSULTING SERVICE: Nephrology REASON FOR VISIT: ROMÁN on CKD Stage 3 CC: tired SUBJECTIVE: Pt is resting in bed. She feels tired. She states that the breathing is better. Not much cough. Has slight leg swelling. ROS: no headache, no nausea, no vomiting, no diarrhea, no abdominal pain, no palpitations, no chest pain MEDICATIONS: reviewed PHYSICAL EXAM: Patient Vitals for the past 8 hrs: BP Temp Temp src Pulse Resp SpO2 Weight 02/05/18 1148 128/86 (!) 35.4 ?C (95.7 ?F) Axillary (!) 54 22 99 % - 02/05/18 0954 - - - 60 - - - 02/05/18 0944 - - - 60 20 97 % - 02/05/18 0736 130/66 36.4 ?C (97.6 ?F) Temporal Art 65 20 98 % - 02/05/18 0600 - - - - - - 105.6 kg (232 lb 12.8 oz) Body mass index is 35.4 kg/(m2). GENERAL: Obese, no distress, cooperative LUNGS: Lungs clear to auscultation. Decreased air entry, no crackles CARDIAC: Normal S1 and S2; no rubs, murmurs, or gallops ABDOMEN: Abdomen soft, non-tender. BS normal. EXTREMITIES: mild bilateral lower ext edema Intake/Output Summary (Last 24 hours) at 02/05/18 1324 Last data filed at 02/05/18 1000 Gross per 24 hour Intake 1544 ml Output 700 ml Net 844 ml DATA: Labs and images reviewed CBC, Coags, BMP, Mg, Phos Recent Labs 02/05/18 0557 02/04/18 0539 02/03/18 0430 WBC 5.91 6.54 6.10 HB 10.6* 11.4* 10.8* HCT 33.8* 36.2 34.5* PLT 146* 160 151 NA 134* 133* 136 K 5.1 5.2* 5.1 CHLOR 96* 96* 98 CO2 27 25 27 BUN 73* 77* 75* CREAT 2.55* 2.53* 2.46* GLUC 226* 156* 75 CA 8.5 8.5 8.7 ASSESSMENT: 1. ROMÁN: creatinine has been stable around 2.5. She has right sided heart failure.She is off iv fluids and currently not on diuretics. Her urine sodium is low suggesting poor renal perfusion. 2. Hyperkalemia: k at 5.1. She was on aldactone. 3. Fluid overload: she has right sided heart failure but likely intravascularly depleted. 4. CKD Stage 3: baseline creatinine is mid 1 range. [place] urine with no significant proteinuria PLAN: 1. No additional ivfluids 2. Continue to hold diuretics for now 3. Serial renal panel 4. Low k diet Will continue to follow the patient during the hospital stay. SIGNATURE: Jordi Cevallos MD DATE: February 05, 2018 TIME: 1:24 PM Radha Edmonds MD 02/05/2018 4:18 PM Signed HOSPITAL MEDICINE PROGRESS NOTE Name: Luz Baca SERVICE DATE: 02/05/2018 SERVICE TIME: 4:09 PM LOCATION / ROOM: [id number] [facility] Medicine/Primary Attending: Radha Edmonds MD NIGHT COVERAGE BETWEEN 5.30P-7.30A Page [phone] ASSESSMENT AND PLAN Chest pain in adult HS trop 55, repeat 56 which is similar to readings at previous admission likely from CKD. Pt had external stress test 07/2017: no evidence of ischemia. Troponin 0.050 to 0.059 to 0.076, monitor on tele. Cards consulted. F/u recs Chronic combined systolic and diastolic CHF (congestive heart failure) Pt was just hospitalized for CHF exacerbation from 01/20/18-01/23/18. BNP 1300 improved from 2145 from last admit. But?still believe her symptoms related to volume overloaded Increased lasix to 80 mg BID IV and aldactone BID Cr got worse likely from volume loss from diarrhea and high dose of diurectics Monitor cr, f/u cards recs Off Lasix now But ? Worsening CHF with CHF findings on CXR. May need dose of lasix Acute renal failure Kidney function most likely got worse due to over diuresis D/w nephro - giving some fluid for now. Slight worse again today. Hold off aldactone today Restarted on some IV fluids Atrial fibrillation On eliquis. S/p pacemaker. Monitor on tele Pacemaker Had recent device interrogation 12/2017 CAD (coronary artery disease) CABGx2 (DEBORAH-LAD, SVG-PDA ) in 2003 Uncontrolled type 2 diabetes mellitus with stage 3 chronic kidney disease, with long-term current use of insulin HbA1c: 12.0. ?Endocrinology consulted. On Lantus 30 units AM and 40 units HS, Humalog 12 uints with each meals plus sliding scale. Increased HS dose of Lantus to 44 units. Fasting sugars are improving Essential hypertension Stable, continue home meds. Sleep apnea Wears CPAP at home, continue. ?? Acute diarrhea Resolved SUBJECTIVE INTERVAL HPI: Feels worse today with more SOB since last night. Was treated with some more IV fluid yesterday. No fever, chills, cp nor palpitations. No events overnight MEDICATIONS: Reviewed Current Facility-Administered Medications: insulin lispro 7 Units injection (rapid acting) (HumaLOG) 7 Units SUBCUTANEOUS w MEALS Shruti Hasan 7 Units at 02/05/18 1216 insulin lispro injection (rapid acting) (HumaLOG) SUBCUTANEOUS w MEALS Shruti Hasan 6 Units at 02/05/18 1214 carvedilol 3.125 mg tab(s) (COREG) 3.125 mg ORAL BID w MEALS Qarab Ronal Darrell insulin glargine 28 Units injection (long acting) (LANTUS) 28 Units SUBCUTANEOUS DAILY (8 AM) Dina Bowman MD 28 Units at 02/05/18 0848 insulin glargine 40 Units injection (long acting) (LANTUS) 40 Units SUBCUTANEOUS AT BEDTIME Dina Bowman MD 40 Units at 02/04/18 2335 cholecalciferol 1,000 Units tab(s) (VITAMIN D3) 1,000 Units ORAL DAILY Malena A Argekar 1,000 Units at 02/05/18 1122 allopurinol 100 mg tab(s) (ZYLOPRIM) 100 mg ORAL DAILY Malena A Argekar 100 mg at 02/05/18 1122 docusate sodium 100 mg cap(s) (COLACE) 100 mg ORAL BID Wind Gapebonie Adams) Thuestad 100 mg at 02/05/18 1123 polyethylene glycol 3350 17 g packet (MIRALAX, GLYCOLAX) 17 g ORAL DAILY Radhaebonie Adams) Thuestad 17 g at 02/02/18 1046 bisacodyl 10 mg suppository (DULCOLAX) 10 mg RECTAL DAILY PRN Radha Adams) Kendal sodium chloride 0.65 % 2 Parker (AYR, OCEAN) 2 Parker EACH NOSTRIL PRN Zuhair Wick apixaban 2.5 mg tab(s) (ELIQUIS) 2.5 mg ORAL BID Radha Adams) Linkuestad 2.5 mg at 02/05/18 1123 gabapentin 200 mg cap(s) (NEURONTIN) 200 mg ORAL BID Malena A Argekar 200 mg at 02/05/18 1123 ondansetron orally disintegrating 4 mg tab(s) (ZOFRAN ODT) 4 mg ORAL q 6 H PRN Zuhair Wick 4 mg at 02/04/18 0835 acetaminophen 650 mg tab(s) (TYLENOL) 650 mg ORAL q 6 H PRN Leonard Santiagoubber 650 mg at 02/05/18 0210 simvastatin 40 mg tab(s) (ZOCOR) 40 mg ORAL AT BEDTIME Raymond (Gorge) Claire 40 mg at 02/04/18 2035 ipratropium-albuterol 3 mL nebulizer solution (DUONEB) 3 mL INHALATION q 4 H PRN Raymond (Gorge) Claire 3 mL at 02/05/[address] 40 mg tab(s) (PROTONIX) 40 mg ORAL BID Raymond (Pa) Claire 40 mg at 02/05/18 1123 bacitracin 1 application topical ointment 1 application TOPICAL BID Raymond (Gorge) Claire 1 application at 02/05/18 1128 isosorbide mononitrate ER 60 mg tab(s) (IMDUR) 60 mg ORAL DAILY Raymond (Pa) Claire 60 mg at 02/05/18 1123 0.9% NaCl 3-5 mL 3-5 mL INTRAVENOUS q 12 H Raymond (Gorge) Claire 5 mL at 02/05/18 1122 dextrose 40 % 15 g 15 g ORAL PRN Raymond (Pa) Claire Or glucagon 1 mg injection (GLUCAGEN) 1 mg INTRAMUSCULAR PRN Raymond (Gorge) Claire Or dextrose 50% in water 25 mL syringe 12.5 g INTRAVENOUS PRN Raymond (Gorge) Claire miconazole 2 % 1 application topical powder (LOTRIMIN AF, DESENEX) 1 application TOPICAL BID Gloria Singer 1 application at 02/05/18 1217 OBJECTIVE PHYSICAL EXAM: BP 128/86 Pulse 54 Temp (Src) 95.7 (Axillary) Resp 22 Ht 5' 8 (1.73m) Wt 232 lb 12.8 oz (105.6kg) SpO2 99% BMI 35.41 kg/(m2). GENERAL: Morbidly Obese, Alert, Mild Distress, Cooperative SKIN: Skin color, texture, turgor normal. No rashes or lesions. EYES: PERRLA, EOMI OROPHARYNX: Lips, mucosa, and tongue normal. Teeth and gums normal. Oropharynx normal. NECK: No jugulovenous distention, No carotid bruits, Carotid pulse normal contour, Supple LUNGS: Lungs mild rales bilaterally CARDIAC: Normal S1 and S2; no rubs, murmurs, or gallops ABDOMEN: Abdomen soft, non-tender, BS normal, No masses or organomegaly EXTREMITIES: Extremities normal, no deformities, edema, clubbing or skin discoloration. Good capillary refill., No ulcers NEURO: Reflexes normal and symmetric. Sensation grossly intact, Cranial nerves II-XII intact PULSES: 2+ radial, 2+ carotid DATA: Diagnostic tests reviewed for today's visit: Most recent labs CBC: WBC 5.91 02/05/2018 HEMOGLOBIN 10.6 02/05/2018 HEMATOCRIT 33.8 02/05/2018 PLATELETS 146 02/05/2018 CMP: Sodium 134 02/05/2018 Potassium 5.1 02/05/2018 BUN 73 02/05/2018 Creatinine 2.55 02/05/2018 Glucose 226 02/05/2018 Chloride 96 02/05/2018 CO2 Content, Venous 27 02/05/2018 VTE Prophylaxis: Patient is already anti-coagulated. Disposition: Home vs Home with [facility] Plan of care discussed with: Patient, rN SIGNATURE: Radha Edmonds MD DATE: February 05, 2018 TIME: 4:09 PM Janet Pineda RN, RN 02/06/2018 12:09 AM Signed Nursing Progress Note Patient Name: Luz Baca Patient Location: [id number] Daily Note: 2300 Made hospitalist aware of magnesium lab results 0005 Patient c/o of SOB, requesting breathing treatment. Respiratory therapy contacted. This note was completed by: ALLYSON Allen MD 02/06/2018 12:42 PM Signed INPATIENT CONSULT PROGRESS NOTES Patient Name: Luz Baca DATE of SERVICE: February 06, 2018 TIME of SERVICE: 11:25 AM CONSULTING SERVICE: Nephrology REASON FOR VISIT: ROMÁN on CKD Stage 3 CC: shortness of breath SUBJECTIVE: Pt had shortness of breath on exertion. She has lower ext swelling. She has no chest pain. ROS: no headache, no nausea, no vomiting, no diarrhea, no abdominal pain, no palpitations, MEDICATIONS: reviewed PHYSICAL EXAM: Patient Vitals for the past 8 hrs: BP Temp Temp src Pulse Resp SpO2 Weight 02/06/18 0825 137/83 36.4 ?C (97.5 ?F) Oral 77 20 96 % - 02/06/18 0410 129/67 36.5 ?C (97.7 ?F) Oral (!) 56 19 95 % - 02/06/18 0346 - - - - - - 110.8 kg (244 lb 4.8 oz) Body mass index is 37.15 kg/(m2). GENERAL: Obese, no distress, cooperative LUNGS: scattered rales. Decreased air entry, few expiratory wheeze CARDIAC: Normal S1 and S2; no rubs, murmurs, or gallops ABDOMEN: Abdomen soft, non-tender. BS normal. EXTREMITIES: mild bilateral lower ext edema Intake/Output Summary (Last 24 hours) at 02/06/18 1125 Last data filed at 02/06/18 0600 Gross per 24 hour Intake 1630 ml Output 552 ml Net 1078 ml DATA: Labs and images reviewed CBC, Coags, BMP, Mg, Phos Recent Labs 02/06/18 0516 02/05/18 1044 02/05/18 0557 02/04/18 0539 WBC 6.22 -- 5.91 6.54 HB 10.4* -- 10.6* 11.4* HCT 33.6* -- 33.8* 36.2 PLT 153 -- 146* 160 NA 134* -- 134* 133* K 5.6* -- 5.1 5.2* CHLOR 97 -- 96* 96* CO2 24 -- 27 25 BUN 79* -- 73* 77* CREAT 2.47* -- 2.55* 2.53* GLUC 123* -- 226* 156* CA 8.9 -- 8.5 8.5 MG -- 2.7* -- -- ASSESSMENT: ? 1. ROMÁN: creatinine has been stable around 2.5. She has right sided heart failure.She is off iv fluids and currently not on diuretics. Her urine sodium is low suggesting poor renal perfusion. 2. Hyperkalemia: k at 5.6. She was on aldactone. 3. Fluid overload: she has right sided heart failure with moderate to severe pulmonary hypertension but likely intravascularly depleted. EF of 50%. CXR Shows CHF. 4. CKD Stage 3: baseline creatinine is mid 1 range. [place] urine with no significant proteinuria ? PLAN: ? 1. Start lasix infusion 10mg/hr 2. She understands that her fluid overload is in the wrong space given her pulmonary hypertension and removal of fluid could pose a challenge 3. Serial renal panel 4. Low k diet Will continue to follow the patient during the hospital stay. SIGNATURE: Jordi Cevallos MD DATE: February 06, 2018 TIME: 11:25 AM Mauro Ramírez MD 02/06/2018 12:54 PM Signed PROGRESS NOTE CARDIOLOGY SERVICE SERVICE DATE: 02/06/2018 SERVICE TIME: 12:41 PM Subjective INTERIM HISTORY: Patient had no chest pain, SOB or palpitations or dizziness overnight. She has frequent PVCs on the monitor MEDICATIONS: Current hospital medications: furosemide 500 mg in empty bottle 50 mL IV infusion (LASIX) 10 mg/hr INTRAVENOUS CONTINUOUS insulin lispro 7 Units injection (rapid acting) (HumaLOG) 7 Units SUBCUTANEOUS w MEALS insulin lispro injection (rapid acting) (HumaLOG) SUBCUTANEOUS w MEALS carvedilol 3.125 mg tab(s) (COREG) 3.125 mg ORAL BID w MEALS amiodarone 200 mg tab(s) (PACERONE) 200 mg ORAL TID insulin glargine 28 Units injection (long acting) (LANTUS) 28 Units SUBCUTANEOUS DAILY (8 AM) insulin glargine 40 Units injection (long acting) (LANTUS) 40 Units SUBCUTANEOUS AT BEDTIME cholecalciferol 1,000 Units tab(s) (VITAMIN D3) 1,000 Units ORAL DAILY allopurinol 100 mg tab(s) (ZYLOPRIM) 100 mg ORAL DAILY docusate sodium 100 mg cap(s) (COLACE) 100 mg ORAL BID polyethylene glycol 3350 17 g packet (MIRALAX, GLYCOLAX) 17 g ORAL DAILY bisacodyl 10 mg suppository (DULCOLAX) 10 mg RECTAL DAILY PRN sodium chloride 0.65 % 2 Parker (AYR, OCEAN) 2 Parker EACH NOSTRIL PRN apixaban 2.5 mg tab(s) (ELIQUIS) 2.5 mg ORAL BID gabapentin 200 mg cap(s) (NEURONTIN) 200 mg ORAL BID ondansetron orally disintegrating 4 mg tab(s) (ZOFRAN ODT) 4 mg ORAL q 6 H PRN acetaminophen 650 mg tab(s) (TYLENOL) 650 mg ORAL q 6 H PRN simvastatin 40 mg tab(s) (ZOCOR) 40 mg ORAL AT BEDTIME ipratropium-albuterol 3 mL nebulizer solution (DUONEB) 3 mL INHALATION q [address] 40 mg tab(s) (PROTONIX) 40 mg ORAL BID bacitracin 1 application topical ointment 1 application TOPICAL BID isosorbide mononitrate ER 60 mg tab(s) (IMDUR) 60 mg ORAL DAILY 0.9% NaCl 3-5 mL 3-5 mL INTRAVENOUS q 12 H dextrose 40 % 15 g 15 g ORAL PRN glucagon 1 mg injection (GLUCAGEN) 1 mg INTRAMUSCULAR PRN dextrose 50% in water 25 mL syringe 12.5 g INTRAVENOUS PRN miconazole 2 % 1 application topical powder (LOTRIMIN AF, DESENEX) 1 application TOPICAL BID Objective PHYSICAL EXAM: Patient Vitals for the past 24 hrs: BP Temp Temp src Pulse Resp SpO2 Weight 02/06/18 1230 109/51 - Oral 78 20 97 % - 02/06/18 0825 137/83 36.4 ?C (97.5 ?F) Oral 77 20 96 % - 02/06/18 0410 129/67 36.5 ?C (97.7 ?F) Oral (!) 56 19 95 % - 02/06/18 0346 - - - - - - 110.8 kg (244 lb 4.8 oz) 02/06/18 0054 - - - 65 22 96 % - 02/05/18 2341 147/56 36.3 ?C (97.3 ?F) Axillary 62 19 97 % - 02/05/18 1926 125/54 36.4 ?C (97.5 ?F) Oral 60 18 99 % - 02/05/18 1653 - - - 72 - - - 02/05/18 1624 122/81 - Oral (!) 47 20 98 % - Weight change: 5.216 kg (11 lb 8 oz) Body mass index is 37.15 kg/(m2). Intake/Output Summary (Last 24 hours) at 02/06/18 1241 Last data filed at 02/06/18 0600 Gross per 24 hour Intake 1630 ml Output 552 ml Net 1078 ml General: Pt is able to communicate. Patient is not in acute respiratory distress. SKIN: No rash or lumps. Eyes. Pupils are round and accommodative to light. HEENT: Normocephalic, face symmetrical. Normal pinna. Throat is without congestion. Pharyngeal structures are not crowded NECK: Supple, no JVD, no carotid bruit, no thyromegaly. LUNGS: Clear to auscultation bilaterally. CARDIAC: Normal S1 and S2, faint systolic murmur. Left Pectoral device site is clean ABDOMEN: Soft, nontender, bowel sounds present. Few bruise bland are noted EXTREMITIES: No cyanosis, clubbing, 1-2 pitting leg / ankle edema. PULSES: Peripheral pulses are not palpable in Dorsalis pedis and Posterior tibial arteries bilaterally. NEURO: Non-focal. Awake, alert, oriented times 3. Moves all extremities. MUSCULOSKELETAL: No fracture or dislocation of the bones or foints. Recent Labs 02/06/18 0516 02/05/18 1044 TROPT -- 0.058* WBC 6.22 -- RBC 3.41* -- HB 10.4* -- HCT 33.6* -- MCV 98.5 -- MCH 30.5 -- MCHC 31.0 -- PLT 153 -- GLUC 123* -- BUN 79* -- CREAT 2.47* -- NA 134* -- K 5.6* -- CHLOR 97 -- CO2 24 -- TPROT 6.5 -- ALB 3.3* -- CA 8.9 -- ALKPHOS 94 -- TBILI 0.3 -- AST 19 -- ALT 19 -- MG -- 2.7* Diagnostic tests reviewed : Most recent labs and imaging results reviewed. IMPRESSION: Spirometry shows no obstruction. The reduced FVC suggests very severe restriction. ? Recommend lung volumes if clinically indicated. The diffusing capacity is severely reduced. The presence of a reduced DLCO that normalizes when corrected for volume is consistent with a non-parenchymal disorder but does not rule out parenchymal or pulmonary vascular disease. The diffusing capacity corrected for volume is normal. Electronically Signed On 11-12-2017 Most recent EKG / Telemetry reviewed. Ventricular paced and few PVCs are noted Impression/Recommendations 1. ?ASHD - CABGx3 2003, PCIx6 RCA 2013, PCIx3 2014. Her troponin are chronically elevated due to the Renal dysfunction 2. ?HCM - septal myectomy 2003 3. ?CHF - acute on chronic diastolic, DAMION- / ARB intolerance (CRF) 4. ?Cardiomyopathy - ischemic, ICD 2015, revised 11/2016 5. ?HTN 6. ?Trigeminal PVCs on the monitor - Tolerating Coreg 3.125 mg BID and I will give Amiodarone 400 mg BID. However, Auto PAP / BiPAP for MARLA will help 7. Defibrillator was checked in December 2017 and was normal 8. ?MARLA - unable to tolerate CPAP - ,ay consider ENT / Hypoglossal nerve stimulator 9. ?PAF- anticoagulated with apixaban 10. Acute on?CKD - Pt can be treated with hydration as her LV function is fair to good. SIGNATURE: Mauro Ramírez MD [facility] PATIENT NAME: Luz Baca DATE: February 06, 2018 TIME: 12:41 PM Cell phone #: [phone] Radha Edmonds MD 02/07/2018 5:55 AM [facility] Name: Luz Baca SERVICE DATE: 02/06/2018 SERVICE TIME: 3:39 PM LOCATION / ROOM: [id number] Correction of time of service Radha Edmonds MD February 07, 2018 5:55 AM Hospital Medicine/Primary Attending: Radha Edmonds MD NIGHT COVERAGE BETWEEN 5.30P-7.30A Page [id number] ASSESSMENT AND PLAN Chest pain in adult HS trop 55, repeat 56 which is similar to readings at previous admission likely from CKD. Pt had external stress test 07/2017: no evidence of ischemia. Troponin 0.050 to 0.059 to 0.076, monitor on tele. Cards consulted. F/u recs ? Chronic combined systolic and diastolic CHF (congestive heart failure) Pt was just hospitalized for CHF exacerbation from 01/20/18-01/23/18. BNP 1300 improved from 2145 from last admit. But?still believe her symptoms related to volume overloaded Increased lasix to 80 mg BID IV and aldactone BID Cr got worse likely from volume loss from diarrhea and high dose of diurectics Monitor cr, f/u cards recs Off Lasix now But ? Worsening CHF with CHF findings on CXR. May need dose of lasix ? Acute renal failure Kidney function most likely got worse due to over diuresis D/w nephro - giving some fluid for now. Slight worse again today. Hold off aldactone today D/W nephro - started on lasix drip ? Atrial fibrillation On eliquis. S/p pacemaker. Monitor on tele ? Pacemaker Had recent device interrogation 12/2017 ? CAD (coronary artery disease) CABGx2 (DEBORAH-LAD, SVG-PDA ) in 2003 ? Uncontrolled type 2 diabetes mellitus with stage 3 chronic kidney disease, with long-term current use of insulin HbA1c: 12.0. ?Endocrinology consulted. On Lantus 30 units AM and 40 units HS, Humalog 12 uints with each meals plus sliding scale. Increased HS dose of Lantus to 44 units. Fasting sugars are improving ? Essential hypertension Stable, continue home meds. ? Sleep apnea Wears CPAP at home, continue. ?? Acute diarrhea Resolved SUBJECTIVE INTERVAL HPI: Patient is worried about the renal functioning and her outlook.No fever, chills, cp nor palpitations. No events overnight MEDICATIONS: Reviewed Current Facility-Administered Medications: furosemide 500 mg in empty bottle 50 mL IV infusion (LASIX) 10 mg/hr INTRAVENOUS GEORGE Cevallos Last Rate: 1 mL/hr at 02/07/18 0317 10 mg/hr at 02/07/18 0317 amiodarone 400 mg tab(s) (PACERONE) 400 mg ORAL BID Qarab Ronal Darrell 400 mg at 02/06/182004 simvastatin 20 mg tab(s) (ZOCOR) 20 mg ORAL AT BEDTIME Qarab Ronal Darrell 20 mg at 02/06/182004 aluminum-magnesium hydroxide-simethicone 200-200-20 mg/5 mL 15 mL (MAALOX,MYLANTA,MAG-AL PLUS) 15 mL ORAL q 4 H PRN Radha Adams) Thuestad insulin lispro 7 Units injection (rapid acting) (HumaLOG) 7 Units SUBCUTANEOUS w MEALS Shruti Hasan 7 Units at 02/06/18 1701 insulin lispro injection (rapid acting) (HumaLOG) SUBCUTANEOUS w MEALS Shruti Hasan 6 Units at 02/05/18 1214 carvedilol 3.125 mg tab(s) (COREG) 3.125 mg ORAL BID w MEALS Qarab Ronal Darrell 3.125 mg at 02/06/18 1700 insulin glargine 28 Units injection (long acting) (LANTUS) 28 Units SUBCUTANEOUS DAILY (8 AM) Dina Bowman MD 28 Units at 02/06/18 0852 insulin glargine 40 Units injection (long acting) (LANTUS) 40 Units SUBCUTANEOUS AT BEDTIME Dina Bowman MD 40 Units at 02/06/18 2203 cholecalciferol 1,000 Units tab(s) (VITAMIN D3) 1,000 Units ORAL DAILY Malena A Argekar 1,000 Units at 02/06/18 0853 allopurinol 100 mg tab(s) (ZYLOPRIM) 100 mg ORAL DAILY Malena A Argekar 100 mg at 02/06/18 0853 docusate sodium 100 mg cap(s) (COLACE) 100 mg ORAL BID Radha Adams) Thuestad 100 mg at 02/05/18 1123 polyethylene glycol 3350 17 g packet (MIRALAX, GLYCOLAX) 17 g ORAL DAILY Radha Adams) Thuestad 17 g at 02/02/18 1046 bisacodyl 10 mg suppository (DULCOLAX) 10 mg RECTAL DAILY PRN Radha Adams) Thuestad sodium chloride 0.65 % 2 Parker (AYR, OCEAN) 2 Parker EACH NOSTRIL PRN Zuhair Wick apixaban 2.5 mg tab(s) (ELIQUIS) 2.5 mg ORAL BID Radha Adams) Thuestad 2.5 mg at 02/06/182004 gabapentin 200 mg cap(s) (NEURONTIN) 200 mg ORAL BID Malena A Argekar 200 mg at 02/06/182004 ondansetron orally disintegrating 4 mg tab(s) (ZOFRAN ODT) 4 mg ORAL q 6 H PRN Zuhair Wick 4 mg at 02/04/18 0835 acetaminophen 650 mg tab(s) (TYLENOL) 650 mg ORAL q 6 H PRN Shameer Khubber 650 mg at 02/07/18 0310 ipratropium-albuterol 3 mL nebulizer solution (DUONEB) 3 mL INHALATION q 4 H PRN Raymond (Gorge) Claire 3 mL at 02/06/18[address] pantoprazole DR 40 mg tab(s) (PROTONIX) 40 mg ORAL BID Raymond (Gorge) Claire 40 mg at 02/06/182004 bacitracin 1 application topical ointment 1 application TOPICAL BID Raymond (Gorge) Claire 1 application at 02/06/182008 isosorbide mononitrate ER 60 mg tab(s) (IMDUR) 60 mg ORAL DAILY Raymond (Gorge) Claire 60 mg at 02/06/18 0853 0.9% NaCl 3-5 mL 3-5 mL INTRAVENOUS q 12 H Raymond (Gorge) Claire 5 mL at 02/06/18 0851 dextrose 40 % 15 g 15 g ORAL PRN Raymond (Gorge) Claire Or glucagon 1 mg injection (GLUCAGEN) 1 mg INTRAMUSCULAR PRN Raymond (Gorge) Claire Or dextrose 50% in water 25 mL syringe 12.5 g INTRAVENOUS PRN Raymond (Gorge) Claire miconazole 2 % 1 application topical powder (LOTRIMIN AF, DESENEX) 1 application TOPICAL BID Gloria Singer 1 application at 02/06/182008 OBJECTIVE PHYSICAL EXAM: BP 120/65 Pulse 61 Temp (Src) 97.5 (Oral) Resp 18 Ht 5' 8 (1.73m) Wt 244 lb 4.8 oz (110.8kg) SpO2 96% BMI 37.15 kg/(m2). GENERAL: Alert, no distress, cooperative, morbid obese SKIN: Skin color, texture, turgor normal. No rashes or lesions. EYES: PERRLA, EOMI OROPHARYNX: Lips, mucosa, and tongue normal. Teeth and gums normal. Oropharynx normal. NECK: No jugulovenous distention, No carotid bruits, Carotid pulse normal contour, Supple LUNGS: Lungs clear to auscultation, Good diaphragmatic excursion CARDIAC: Normal S1 and S2; no rubs, murmurs, or gallops ABDOMEN: Abdomen soft, non-tender, BS normal, No masses or organomegaly EXTREMITIES: Extremities normal, no deformities, edema, clubbing or skin discoloration. Good capillary refill., No ulcers NEURO: Gait normal. Reflexes normal and symmetric. Sensation grossly intact, Cranial nerves II-XII intact PULSES: 2+ radial, 2+ carotid DATA: Diagnostic tests reviewed for today's visit: Most recent labs CBC: WBC 6.22 02/06/2018 HEMOGLOBIN 10.4 02/06/2018 HEMATOCRIT 33.6 02/06/2018 PLATELETS 153 02/06/2018 CMP: Sodium 134 02/06/2018 Potassium 5.6 02/06/2018 BUN 79 02/06/2018 Creatinine 2.47 02/06/2018 Glucose 123 02/06/2018 Chloride 97 02/06/2018 CO2 Content, Venous 24 02/06/2018 VTE Prophylaxis: Patient is already anti-coagulated. Disposition: Home with [facility] Plan of care discussed with: Patient SIGNATURE: Radha Edmonds MD DATE: February 07, 2018 TIME: 5:39 AM Previous Version Jordi Cevallos MD 02/07/2018 8:20 AM Signed INPATIENT CONSULT PROGRESS NOTES Patient Name: Luz Baca DATE of SERVICE: February 07, 2018 TIME of SERVICE: 7:45 AM CONSULTING SERVICE: Nephrology REASON FOR VISIT: ROMÁN on CKD Stage 3 CC: shortness of breath SUBJECTIVE: Breathing is better. She is feeling very cold. She has noticed increase in urine output. No diarrhea. ROS: no headache, no nausea, no vomiting, no abdominal pain, no palpitations, no chest pain MEDICATIONS: reviewed PHYSICAL EXAM: Patient Vitals for the past 8 hrs: BP Temp Temp src Pulse Resp SpO2 Weight 02/07/18 0506 - - - - - - 113.3 kg (249 lb 11.2 oz) 02/07/18 0442 120/65 - Oral 61 18 96 % - 02/07/18 0009 114/52 36.4 ?C (97.5 ?F) Oral 61 18 95 % - Body mass index is 37.97 kg/(m2). GENERAL: ?Obese,?no distress, cooperative LUNGS: Decreased air entry, few expiratory wheeze CARDIAC: Normal S1 and S2; no rubs, murmurs, or gallops ABDOMEN: Abdomen soft, non-tender. BS normal. EXTREMITIES: mild bilateral lower ext?edema Intake/Output Summary (Last 24 hours) at 02/07/18 0745 Last data filed at 02/07/18 0600 Gross per 24 hour Intake 1765 ml Output 1151 ml Net 614 ml DATA: Labs and images reviewed CBC, Coags, BMP, Mg, Phos Recent Labs 02/07/18 0518 02/06/18 0516 02/05/18 1044 02/05/18 0557 WBC 7.32 6.22 -- 5.91 HB 10.7* 10.4* -- 10.6* HCT 34.4* 33.6* -- 33.8* PLT 182 153 -- 146* NA 133* 134* -- 134* K 5.2* 5.6* -- 5.1 CHLOR 98 97 -- 96* CO2 24 24 -- 27 BUN 85* 79* -- 73* CREAT 2.82* 2.47* -- 2.55* GLUC 87 123* -- 226* CA 8.5 8.9 -- 8.5 MG -- -- 2.7* -- ASSESSMENT: 1. ROMÁN: Creatinine is worse with initiation of lasix drip which was expected given intravascular volume contraction in the setting of total body fluid overload. On lasix drip with improvement in urine output. 2. Hyperkalemia: k at 5.2. Improved with better diuresis and low k diet. 3. Fluid overload: currently on lasix drip. she has right sided heart failure with moderate to severe pulmonary hypertension but likely intravascularly depleted. EF of 50%. CXR Shows CHF. 4. CKD Stage 3: baseline creatinine is mid 1 range. [place] urine with no significant proteinuria ?? PLAN: ?? 1. Will continue lasix infusion 10mg/hr with close monitoring of renal function and output 2. Will need to accept some degree of azotemia given the fluid overload 3. Serial renal panel 4. Overall prognosis is poor in the setting of pulmonary hypertension and ROMÁN ? Will continue to follow the patient during the hospital stay. SIGNATURE: Jordi Cevallos MD DATE: February 07, 2018 TIME: 7:[address], NEY 02/07/2018 11:00 AM Signed NUTRITION THERAPY PROGRESS NOTE SERVICE DATE: 02/07/2018 SERVICE TIME: 10:50 am NUTRITION CARE PLAN Intervention: Carb Controlled, 2 gm K diet Monitor and Evaluation: Goal: Meet >75% of estimated needs Monitor fluid/electrolyte balance Will follow within 7 days or as consulted Discharge Nutrition Recommendations: Diet: Carb Controlled, 2 gm K diet Nutritional Intake: >75% estimated energy needs over the past 5 day(s) K level improving on 2 gm K diet and diuresis Admission Weight: 105.2 kg (232 lb) Current Weight: 113.3 kg (249 lb 11.2 oz) Body mass index is 37.97 kg/(m2). class 2 obesity MNT Billing Type: Re-assess/15 min 1 unit SIGNATURE: Violet Valente RD, LD PATIENT NAME: Luz Baca DATE: February 07, 2018 TIME: 10:57 AM PAGER: Russell Strickland MD 02/07/2018 12:38 PM Signed INTERNAL MEDICINE PROGRESS NOTE SERVICE DATE: 02/07/2018 SERVICE TIME: 1233 ADMITTING PHYSICIAN: Gloria Singer Subjective CHIEF COMPLAINT: sob Current Facility-Administered Medications: furosemide 500 mg in empty bottle 50 mL IV infusion (LASIX) 10 mg/hr INTRAVENOUS CONTINUOUS amiodarone 400 mg tab(s) (PACERONE) 400 mg ORAL BID simvastatin 20 mg tab(s) (ZOCOR) 20 mg ORAL AT BEDTIME aluminum-magnesium hydroxide-simethicone 200-200-20 mg/5 mL 15 mL (MAALOX,MYLANTA,MAG-AL PLUS) 15 mL ORAL q 4 H PRN insulin lispro 7 Units injection (rapid acting) (HumaLOG) 7 Units SUBCUTANEOUS w MEALS insulin lispro injection (rapid acting) (HumaLOG) SUBCUTANEOUS w MEALS carvedilol 3.125 mg tab(s) (COREG) 3.125 mg ORAL BID w MEALS insulin glargine 28 Units injection (long acting) (LANTUS) 28 Units SUBCUTANEOUS DAILY (8 AM) insulin glargine 40 Units injection (long acting) (LANTUS) 40 Units SUBCUTANEOUS AT BEDTIME cholecalciferol 1,000 Units tab(s) (VITAMIN D3) 1,000 Units ORAL DAILY allopurinol 100 mg tab(s) (ZYLOPRIM) 100 mg ORAL DAILY docusate sodium 100 mg cap(s) (COLACE) 100 mg ORAL BID polyethylene glycol 3350 17 g packet (MIRALAX, GLYCOLAX) 17 g ORAL DAILY bisacodyl 10 mg suppository (DULCOLAX) 10 mg RECTAL DAILY PRN sodium chloride 0.65 % 2 Parker (AYR, OCEAN) 2 Parker EACH NOSTRIL PRN apixaban 2.5 mg tab(s) (ELIQUIS) 2.5 mg ORAL BID gabapentin 200 mg cap(s) (NEURONTIN) 200 mg ORAL BID ondansetron orally disintegrating 4 mg tab(s) (ZOFRAN ODT) 4 mg ORAL q 6 H PRN acetaminophen 650 mg tab(s) (TYLENOL) 650 mg ORAL q 6 H PRN ipratropium-albuterol 3 mL nebulizer solution (DUONEB) 3 mL INHALATION q [address] 40 mg tab(s) (PROTONIX) 40 mg ORAL BID bacitracin 1 application topical ointment 1 application TOPICAL BID isosorbide mononitrate ER 60 mg tab(s) (IMDUR) 60 mg ORAL DAILY 0.9% NaCl 3-5 mL 3-5 mL INTRAVENOUS q 12 H dextrose 40 % 15 g 15 g ORAL PRN Or glucagon 1 mg injection (GLUCAGEN) 1 mg INTRAMUSCULAR PRN Or dextrose 50% in water 25 mL syringe 12.5 g INTRAVENOUS PRN miconazole 2 % 1 application topical powder (LOTRIMIN AF, DESENEX) 1 application TOPICAL BID INTERVAL HISTORY OF PRESENT ILLNESS: No f/c, no headaches or dizziness, no cp or palps, no n/v/d No cough has sob and some constant chest pressure worse with inspiration Objective PHYSICAL EXAM: Patient Vitals for the past 24 hrs: BP Temp Temp src Pulse Resp SpO2 Weight 02/07/18 1135 106/57 (!) 35.7 ?C (96.2 ?F) Rectal (!) 52 20 98 % - 02/07/18 0937 - (!) 35.6 ?C (96 ?F) Rectal - - - - 02/07/18 0910 115/62 - - - - - - 02/07/18 0818 - - - - - 98 % - 02/07/18 0747 (!) 101/49 (!) 35.8 ?C (96.5 ?F) Temporal Art 61 20 98 % - 02/07/18 0506 - - - - - - 113.3 kg (249 lb 11.2 oz) 02/07/18 0442 120/65 - Oral 61 18 96 % - 02/07/18 0009 114/52 36.4 ?C (97.5 ?F) Oral 61 18 95 % - 02/06/182026 - - - 63 18 - - 02/06/182016 - - - 61 18 95 % - 02/06/182011 120/60 36.6 ?C (97.9 ?F) Oral (!) 52 18 95 % - 02/06/18 1633 145/78 36.3 ?C (97.3 ?F) Oral 70 22 97 % - Body mass index is 37.97 kg/(m2). GENERAL: Alert, no distress, cooperative SKIN: Skin color, texture, turgor normal. No rashes or lesions. OROPHARYNX: Lips, mucosa, and tongue are normal.Teeth and gums, normal. Oropharynx normal. NECK: No carotid bruits LUNGS: Lungs clear to auscultation. Good diaphragmatic excursion. CARDIAC: Normal S1 and S2; no rubs, murmurs, or gallops ABDOMEN: Abdomen soft, non-tender, BS normal, No masses or organomegaly EXTREMITIES: Extremities normal, no deformities, edema, clubbing or skin discoloration. Good capillary refill. DATA: Diagnostic tests reviewed for today's visit: Most recent labs and imaging results. Assessment/Plan Principal Problem: Chest pain in adult POA: Yes Assessment AND Plan: trops stable and likely elevated due to CKD. Nl stress test 08/03 Active Problems: Chronic combined systolic and diastolic CHF (congestive heart failure) (HCC) POA: Yes Assessment AND Plan: cont lasix gtt, BNP 1300, ECHO ef 50%, grade 3 diastolic dysfunction and pulm HTN Atrial fibrillation (HCC) POA: Yes Assessment AND Plan: cont eliquis and pacerone, rate controlled Uncontrolled type 2 diabetes mellitus with stage 3 chronic kidney disease, with long-term current use of insulin (HCC) POA: Yes Assessment AND Plan: A1c 12, cont insulin, ssi as needed Essential hypertension POA: Yes Assessment AND Plan: stable ROMÁN with CKD; baseline Cr 1.5, increased to 2.8 with diuresis, renal following Resolved Problems: * No resolved hospital problems. * SIGNATURE: Russell Strickland MD PATIENT NAME: Luz Baca DATE: February 07, 2018 TIME: 12:33 PM PAGER/CONTACT #: [phone] Vanessa Gonzalez, RN, RN 02/07/2018 2:11 PM Signed MULTIDISCIPLINARY ROUNDS SERVICE DATE: 02/07/2018 ADMISSION DATE: 01/27/2018 SERVICE TIME: 2:09 PM ANTICIPATED D/C DATE: 1-2 days Problem List: ACTIVE PROBLEM LIST Cad (Coronary Artery Disease) Essential Hypertension Hyperlipidemia Copd (Chronic Obstructive Pulmonary Disease) (Hcc) Sleep Apnea Gerd (Gastroesophageal Reflux Disease) Arthritis Depression Atrial Fibrillation (Hcc) Uncontrolled Type 2 Diabetes Mellitus With Stage 3 Chronic Kidney Disease, With Long-Term Current Use of Insulin (Hcc) Class 1 Obesity Due to Excess Calories With Serious Comorbidity in Adult Gout Pacemaker Chronic Combined Systolic and Diastolic Chf (Congestive Heart Failure) (Hcc) Pulmonary Hypertension Chest Pain in Adult Attendees Present at Rounds: Group Work Program Aide: Vanessa Family: daughter Patient: Luz Baca Staff Nurse: Brenda Needs Discussed on Rounds: Plan of Care Anticipated Discharge Disposition: Home/Self Care Last Vitals: BP 106/57 Pulse 52 Temp (Src) 96.2 (Rectal) Resp 20 Ht 5' 8 (1.73m) Wt 249 lb 11.2 oz (113.3kg) SpO2 98% BMI 37.98 kg/(m2). On 3L n/c today Chronic 2.5 LO2 at home. From home with dtr. [facility]ose [facility] NEED F[facility]F, Dtr will transport. 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, Cardiac Enzymes, K, Mg, Hgb/Hct Levels Within Normal;Patient Optimal Cardiac Function Evidence by: Vital Signs Stable, Control Chest Pain, Adequate Oxygenation, Cardiac Goal Target Achievement Date: 02/08/18luid/Electrolyte Intervention(s) Plan: Assess for Signs/Symptom of Dehydration and Fluid Overload;Monitor Lab Values;Daily Weights;Notify LIP for Changes to Baseline Status;Monitor Patient Vital Signs and Intake and Output Fluid/Electrolyte Goals/Outcomes: Appropriate Fluid and Electrolyte Balance Achieved and Maintained;Exhibits Increased Interest and Assume Responsibility for Patient's Own/Family Learning by Beginning to Look for Information and Ask Questions Fluid/Electrolyte Goal Target Achievement Date: 02/08/18 Risk for Infection Intervention(s) Plan: Assess Vital Signs;Assess Signs/Symptom of Infection;Ensure Appropriate Infection Control Standards (Isolation), Sterile, Aseptic Technique;Maintain Hand Hygiene;Monitor Labs and Cultures;Notify LIP for Changes to Baseline Status Risk for Infection Goals/Outcomes: Patient Without Signs/Symptoms of Infections Risk For Infection Goal Target Achievement Date: 02/08/18 Mobility Intervention(s) Plan: Energy conservation/Fatigue Management;Mobility Assist Device;Position to Optimal Function;Pain Management;Notify LIP for Changes to Baseline Status (Unexplained Decrease in IFMS Score);[place] Safety Measures;Pressure Ulcer Prevention Mobility Patient/Family Goals: Demonstrates ability to complete transfers with least level of assist.;Patient Attained Highest Level of Functional of Mobility Mobility Goal Target Achievement Date: 02/08/18 Respiratory Alteration Intervention(s) Plan: Assess and Monitor Respiratory Status;Encourage Coughing and Deep Breathing;Plan Care for Frequent Rest Periods;Positioning for Maximum Lung Capacity;Notify LIP for Changes to Baseline Status Respiratory Alteration Goals/Outcomes: Decrease of Respiratory Distress Respiratory Goal Target Achievement Date: 02/08/18 DOCUMENTED BY: Vanessa Gonzalez RN PATIENT NAME: Luz Baca DATE: February 07, 2018 TIME: 2:09 PM CSN: [id number] Sohail Hernandez RN, RN 02/07/2018 8:13 PM Signed Nursing Progress Note Patient Name: Luz Baca Patient Location: [place] [id number] Daily Note:02/07/[address] Ramírez, orders to hold tonight's dose of Amiodarone. Order to modify Amiodarone to 1x/day, 200 mg. This note was completed by: ALLYSON White, RN, RN 02/07/2018 10:42 PM Addendum Nursing Progress Note Patient Name: Luz Baca Patient Location: [id number] Daily Note:02/07/182049 Paged hospitalist regarding pt reporting pain and temp 2110 Re-paged hospitalist 2200 Orders for Kpad and prn pain meds 224 Paged hospitalist for pt requesting something to help her sleep This note was completed by: Sohail Hernandez RN Previous Version Russell Strickland MD 02/08/2018 2:45 PM Signed INTERNAL MEDICINE PROGRESS NOTE SERVICE DATE: 02/08/2018 SERVICE TIME: 1330 ADMITTING PHYSICIAN: Gloria Singer Subjective CHIEF COMPLAINT: sob Current Facility-Administered Medications: LORazepam 1 mg injection (ATIVAN) 1 mg INTRAVENOUS q 6 H PRN ipratropium-albuterol 3 mL nebulizer solution (DUONEB) 3 mL INHALATION q 4 H while awake albuterol 2.5 mg /3 mL (0.083 %) 2.5 mg (PROVENTIL) 2.5 mg INHALATION q 4 H PRN methylPREDNISolone sod succinate(PF) 40 mg injection (Solu- MEDROL) 40 mg INTRAVENOUS q 12 H insulin glargine 22 Units injection (long acting) (LANTUS) 22 Units SUBCUTANEOUS DAILY (8 AM) insulin glargine 35 Units injection (long acting) (LANTUS) 35 Units SUBCUTANEOUS AT BEDTIME amiodarone 200 mg tab(s) (PACERONE) 200 mg ORAL DAILY HYDROcodone 5 mg - acetaminophen 325 mg tablet (NORCO) 1 tablet ORAL q 6 H PRN melatonin 3 mg tab(s) 3 mg ORAL AT BEDTIME simvastatin 20 mg tab(s) (ZOCOR) 20 mg ORAL AT BEDTIME aluminum-magnesium hydroxide-simethicone 200-200-20 mg/5 mL 15 mL (MAALOX,MYLANTA,MAG-AL PLUS) 15 mL ORAL q 4 H PRN insulin lispro 7 Units injection (rapid acting) (HumaLOG) 7 Units SUBCUTANEOUS w MEALS insulin lispro injection (rapid acting) (HumaLOG) SUBCUTANEOUS w MEALS carvedilol 3.125 mg tab(s) (COREG) 3.125 mg ORAL BID w MEALS cholecalciferol 1,000 Units tab(s) (VITAMIN D3) 1,000 Units ORAL DAILY allopurinol 100 mg tab(s) (ZYLOPRIM) 100 mg ORAL DAILY docusate sodium 100 mg cap(s) (COLACE) 100 mg ORAL BID polyethylene glycol 3350 17 g packet (MIRALAX, GLYCOLAX) 17 g ORAL DAILY bisacodyl 10 mg suppository (DULCOLAX) 10 mg RECTAL DAILY PRN sodium chloride 0.65 % 2 Parker (AYR, OCEAN) 2 Parker EACH NOSTRIL PRN apixaban 2.5 mg tab(s) (ELIQUIS) 2.5 mg ORAL BID gabapentin 200 mg cap(s) (NEURONTIN) 200 mg ORAL BID ondansetron orally disintegrating 4 mg tab(s) (ZOFRAN ODT) 4 mg ORAL q 6 H PRN acetaminophen 650 mg tab(s) (TYLENOL) 650 mg ORAL q 6 H PRN ipratropium-albuterol 3 mL nebulizer solution (DUONEB) 3 mL INHALATION q [address] 40 mg tab(s) (PROTONIX) 40 mg ORAL BID bacitracin 1 application topical ointment 1 application TOPICAL BID isosorbide mononitrate ER 60 mg tab(s) (IMDUR) 60 mg ORAL DAILY 0.9% NaCl 3-5 mL 3-5 mL INTRAVENOUS q 12 H dextrose 40 % 15 g 15 g ORAL PRN Or glucagon 1 mg injection (GLUCAGEN) 1 mg INTRAMUSCULAR PRN Or dextrose 50% in water 25 mL syringe 12.5 g INTRAVENOUS PRN miconazole 2 % 1 application topical powder (LOTRIMIN AF, DESENEX) 1 application TOPICAL BID INTERVAL HISTORY OF PRESENT ILLNESS: No f/c, no headaches or dizziness, no n/v/d but pt has a very poor appetite She states she feels smothered when she is eating. Has chest pain, worse with touching it and with inspiration Increased sob after going to restroom this afternoon. No cough, no palps Objective PHYSICAL EXAM: Patient Vitals for the past 24 hrs: BP Temp Temp src Pulse Resp SpO2 Weight 02/08/18 1145 104/53 36.5 ?C (97.7 ?F) Oral 64 20 95 % - 02/08/18 0857 - - - - - 97 % - 02/08/18 0751 110/61 36.2 ?C (97.2 ?F) Temporal Art 66 20 96 % - 02/08/18 0600 - - - - - - 112.9 kg (248 lb 14.4 oz) 02/08/18 0505 110/79 36.4 ?C (97.6 ?F) Temporal Art 69 18 95 % - 02/08/18 0014 - 36.6 ?C (97.9 ?F) Temporal Art 67 18 - - 02/08/18 0010 118/92 - - 67 18 93 % - 02/08/18 0001 - - - 67 20 93 % - 02/07/18 2237 - - - - 18 - - 02/07/18 1953 115/75 (!) 35.7 ?C (96.2 ?F) Oral (!) 59 18 98 % - 02/07/18 1828 - - - (!) 52 20 - - 02/07/18 1817 - - - (!) 53 24 96 % - 02/07/18 1525 94/50 (!) 35.6 ?C (96.1 ?F) Temporal Art 60 16 99 % - Body mass index is 37.85 kg/(m2). GENERAL: Alert, no distress, cooperative SKIN: Skin color, texture, turgor normal. No rashes or lesions. OROPHARYNX: Lips, mucosa, and tongue are normal.Teeth and gums, normal. Oropharynx normal. NECK: No carotid bruits LUNGS: Lungs clear to auscultation. Good diaphragmatic excursion. CARDIAC: Normal S1 and S2; no rubs, murmurs, or gallops ABDOMEN: Abdomen soft, non-tender, BS normal, No masses or organomegaly EXTREMITIES: Extremities normal, no deformities, edema, clubbing or skin discoloration. Good capillary refill., No ulcers DATA: Diagnostic tests reviewed for today's visit: Most recent labs and imaging results. Assessment/Plan Principal Problem: Chest pain in adult POA: Yes Assessment AND Plan: trops have been stable and likely elevated due to CKD Nl stress test 08/03 Pain is reproducible and worse with inspiration, try steroids Active Problems: Chronic combined systolic and diastolic CHF (congestive heart failure) (HCC) POA: Yes Assessment AND Plan: bnp 1300 which is not as high as other admits, stop lasix gtt today since Cr increasing. ECHO ef 50%, grade 3 diastolic dysfunction and pulm HTN. 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 * SIGNATURE: Russell Strickland MD PATIENT NAME: Luz Baca DATE: February 08, 2018 TIME: 1:27 PM PAGER/CONTACT #: [phone] Jordi Cevallos MD 02/08/2018 4:00 PM Signed INPATIENT CONSULT PROGRESS NOTES Patient Name: Luz Baca DATE of SERVICE: February 08, 2018 TIME of SERVICE: 3:48 PM CONSULTING SERVICE: Nephrology REASON FOR VISIT: ROMÁN on CKD Stage 3 CC: sleepy SUBJECTIVE: Pt was given ativan for anxiety and now she is sleepy. ABG shows mild co2 retention. She is on nasal canula. Her lasix drip was discontinued. Her renal function is slightly worse. ROS: no headache, no nausea, no vomiting, no diarrhea, no abdominal pain, no palpitations, no chest pain MEDICATIONS: reviewed PHYSICAL EXAM: Patient Vitals for the past 8 hrs: BP Temp Temp src Pulse Resp SpO2 02/08/18 1531 103/67 36.4 ?C (97.5 ?F) Oral (!) 59 18 96 % 02/08/18 1145 104/53 36.5 ?C (97.7 ?F) Oral 64 20 95 % 02/08/18 0857 - - - - - 97 % 02/08/18 0751 110/61 36.2 ?C (97.2 ?F) Temporal Art 66 20 96 % Body mass index is 37.85 kg/(m2). GENERAL: ?Obese,?no distress, sleepy LUNGS: Decreased air entry, no crackles CARDIAC: Normal S1 and S2; no rubs, murmurs, or gallops ABDOMEN: Abdomen soft, non-tender. BS normal. EXTREMITIES: mild bilateral lower ext?edema Intake/Output Summary (Last 24 hours) at 02/08/18 1548 Last data filed at 02/08/18 1255 Gross per 24 hour Intake 791 ml Output 1950 ml Net -1159 ml DATA: Labs and images reviewed CBC, Coags, BMP, Mg, Phos Recent Labs 02/08/18 0418 02/07/18 0518 02/06/18 0516 WBC 6.97 7.32 6.22 HB 10.6* 10.7* 10.4* HCT 34.0* 34.4* 33.6* PLT 176 182 153 NA 135* 133* 134* K 4.7 5.2* 5.6* CHLOR 98 98 97 CO2 24 24 BUN 90* 85* 79* CREAT 2.87* 2.82* 2.47* GLUC 131* 87 123* CA 8.9 8.5 8.9 ASSESSMENT: 1. ROMÁN: Creatinine around the same as yesterday. It is however worse than her baseline. This is due to necessary diuresis. She was on lasix drip which was stopped earlier today 2. Hyperkalemia: k at 4.7. Improved with better diuresis and low k diet. 3. Fluid overload: slight improvement in urine output with iv lasix drip. It has been discontinued. she has right sided heart failure with moderate to severe pulmonary hypertension but likely intravascularly depleted. EF of 50%. 4. CKD Stage 3: baseline creatinine is mid 1 range. [place] urine with no significant proteinuria ?? PLAN: ?? 1. Agree with stopping lasix infusion ,close monitoring of renal function and output 2. Will need to accept some degree of azotemia given the fluid overload 3. Serial renal panel 4. Overall prognosis is poor in the setting of pulmonary hypertension and ROMÁN Will continue to follow the patient during the hospital stay. SIGNATURE: Jordi Cevallos MD DATE: February 08, 2018 TIME: 3:48 PM Som Feliciano MD 02/08/2018 5:45 PM Signed Component Latest Ref Rng AND Units 02/07/2018 02/07/2018 02/07/2018 02/07/2018 02/07/2018 02/08/2018 02/08/2018 02/08/2018 02/08/2018 8:30 AM 11:39 AM 3:54 PM 4:29 PM 9:07 PM 7:53 AM 12:13 PM 3:41 PM 5:13 PM Glucose, Point of Care 74 - 99 mg/dL 125 (A) 104 (A) 58 (A) 115 (A) 156 (A) 89 82 116 (A) 149 (A) Impression: Uncontrolled type 2 diabetes with complications on insulin: Developing hypoglycemic episodes on current dose up insulin. Plan: Go down on bedtime Lantus dose to 30 units and go down on morning dose up Lantus to 12 units. Monitor blood sugar before each meal and at bedtime. Call Endo ux information architect if blood sugar is less than 80 or more than 210. We will follow. Som Feliciano MD February 08, 2018 Sohail Hernandez, RN, RN 02/09/2018 6:09 AM Addendum Nursing Progress Note Patient Name: Luz Baca Patient [place] [facility] [id number] Daily Note:02/08/182047 Spoke with Dr. Feliciano regarding pt blood sugar, orders received, see eMAR [id number] Text paged hospitalist regarding AM labs This note was completed by: Sohail Hernandez RN Previous Version Malena Bray MD 02/09/2018 7:05 AM Signed Patient seen and examined. She feels tired and weak. Breathing about the same. Lasix gtt was stopped yesterday due to rising Cr. Blood pressure 115/53, pulse 60, temperature 36.6 ?C (97.9 ?F), temperature source Temporal Artery, resp. rate 16, height 172.7 cm (5' 8), weight 113.4 kg (249 lb 14.4 oz), SpO2 97 %. Intake/Output Summary (Last 24 hours) at 02/09/18 07 Last data filed at 02/09/18 0400 Gross per 24 hour Intake 510 ml Output 2550 ml Net -2040 ml Gen: weak Resp: diminished BS with improved/less wheezing CVS: no rub Abd: soft Ext: trace to 1+ edema K 5.3, Cr 2.98 Hb 10.5 Urine Na < 10, Up/c 0.1 Vit D 15, PTH 198 Renal US no obstruction Impression: 1. ROMÁN on CKD 3 due to diuresis of right > left CHF -poor renal perfusion suggested by low urine Na 2. Edema multifactorial from right sided CHF and gabapentin 3. Hyperkalemia due to #1 4. Underlying CKD 3 followed [address] my partner Dr. Martin 5. Hyperuricemia ? Plan: 1. Restart home diuretics lasix 80mg PO BID 2. If Cr continues to rise with worsening pulmonary situation, might need to consider GROUP TESTER (patient would only want this as a last resort) - I am not convinced that patient is that volume overloaded; I think this is a primary lung process 3. Low K diet; no potassium supplementation 4. Added oral Vit D and recheck PTH/Vit D in 3 months 5. Decreased gabapentin to 200mg BID due to contribution to edema 6. Started allopurinol 100mg daily; recheck uric acid this week ? Reanna Davalos, RN, RN 02/09/2018 9:16 AM Signed Nursing Progress Note Patient Name: Luz Baca Patient Location: [place] [id number] Daily Note: Pt AANDO x 3, calm and cooperative. Pt sitting in bedside chair. 0900 Pt ate breakfast and medication administered. O2 at 3L/min NC with pulse ox 96% and reduced to 2L/min NC. This note was completed by: Reanna Davalos, RN Donnell Cruz MD 02/10/2018 7:59 AM Addendum [facility] [place] Consultation Note, 02/09/2018: Introduction: The patient is seen in consultation today for evaluation of COPD, pulmonary hypertension. This consultation is requested by Russell Strickland MD. A copy of this encounter will be made available as a report via [employer] electronic medical record to her Primary Care Physician, Jameson Kamara MD. HPI: I just couldn't breathe. Shortness of breath developed over weeks, and was associated with heaviness in the chest, lower extremity edema, orthopnea, non-productive cough; specifically without pleuritic chest pain, purulent sputum, hemoptysis, fever, rigors or wheezing. Initial Pulmonary clinic visit 11/12/2017, and re-assessed in Pulmonary clinic 01/07/2018. At 11/12/2017 visit, diagnoses of Claims consistent compliance with therapy prescribed at home. This is the [facility]th admission to [facility] in 2018. PAST MEDICAL HISTORY Diagnosis Date - Arthritis - Atrial fibrillation (HCC) - CAD (coronary artery disease) stents x9, defibrillator, CABG. Seeing Dr. Cardona - Cardiac defibrillator in place - Cardiomegaly - Carotid artery disease (HCC) left - Chronic kidney disease (CKD) stage G3b/A2, moderately decreased glomerular filtration rate (GFR) between 30-44 mL/min/1.73 square meter and albuminuria creatinine ratio between 30-299 mg/g Dr. Martin - COPD (chronic obstructive pulmonary disease) ([facility]) Dr. Cruz - Depression - Diabetes (HCC) - Diabetic neuropathy (HCC) - Edema - GERD (gastroesophageal reflux disease) - Gout with hyperuricemia - HH (hiatus hernia) - HOCM (hypertrophic obstructive cardiomyopathy) ([facility]) S/P Septal Myectomy in 2003. Now with LVEF 50% and mod/severe pulm HTN. - HTN (hypertension) - Hyperlipidemia - Morbid obesity with BMI of 40.0-44.9, adult ([facility]) - Sleep apnea 2011 not on CPAP, unable to tolerate mask 02/2017 - SVT (supraventricular tachycardia) ([facility]) NSVT and questionable VT in 2003 post op PAST SURGICAL HISTORY Procedure Laterality Date - CHOLECYSTECTOMY HX - HEART SURGERY HX 07/18/2004 Septal myectomy and CABG x2 (DEBORAH-LAD, SVG-PDA). - HYSTERECTOMY HX - IANDD PERIANAL ABSCESS - PAST SURGICAL HISTORY OF left breast nodule removed - PAST SURGICAL HISTORY OF skin lesions removed FAMILY HISTORY Problem Relation Age of Onset - Hypertension Mother living at age 93, HTN - Heart Failure Mother [place] - Cancer Father age 71, lung cancer No Asthma, COPD. Social History Marital status: Spouse name: Years of education: Number of children: Social History Main Topics Smoking status: Former Smoker Packs/day: 2.50 Years: 43.00 Types: Cigarettes Start date: 1961 Quit date: 07/07/2004 Smokeless status: Never Used Alcohol use: No Drug use: No Other Topics Concern Caffeine Concern Yes Comment:coffee 1 cup daily Special Diet No Comment:Regular Exercise No Comment:no unable, due to SOB x several months. Social History Narrative Patient and daughter live together. Immunization History Administered Date(s) Administered Influenza Seasonal - High Dose - Age 65+ 10/27/2017 MEDICATIONS and ALLERGIES: Reviewed, updated and reconciled with the patient today, as noted in the medication and allergy sections of the encounter. ROS: Reviewed with patient, confirmed as documented by [facility], ED provider note and previously in record during admission. TO PHYSICAL EXAMINATION: Reviewed as documented in Flowsheet. Body mass index is 38.38 kg/(m2). I/O: +3221 mL since admission Weight: +9.3 Kg since admission Gen: No acute distress. Cooperative with examination. Obese. ENT: Sclerae clear. Nares clear. Oral hygeine good. Pharynx clear, but unable to visualize uvula. Resp: No stridor, accessory respiratory muscle use, supra- sternal or intercostal retractions. No crackles, wheezes, rubs. CV: Irregularly irregular rythm. Heart tones normal. Unable to visualize JVP, HJR. No carotid bruit. Radial pulses normal. Abd: Obese, protuberant, not distended. MSK: No kyphoscoliosis, joint deformities of the extremities. Ext: Warm and well perfused. Pitting edema of both lower legs. No clubbing, cyanosis, sclerodactyly, Raynaud's. Skin: No rash, eczema, urticaria, petechiae, telangiectasia. Lymph: Unable to appreciate adenopathy in neck, supra-clavicular fossae. Endo: Unable to appreciate goiter. No exophthalmos, onycholysis. Neuro: Mental status normal. Affect normal. Muscle strength symmetric. No tremor. DATA REVIEW: Component 01/20/2018 01/26/2018 01/27/2018 02/07/2018 02/08/2018 02/09/2018 pO2, Arterial 93.1 O2HB BG 94.5 RHb (Art) 3.5 Base Excess, Arterial -1.5 Bicarbonate, Arterial 24.1 pCO2, Arterial 47.5 (H) pH, Arterial 7.326 (L) Mode of O2 Delivery 2.5L CANNULA WBC 8.64 8.66 7.63 7.32 5.53 RBC 4.06 4.08 3.93 3.51 (L) 3.46 (L) Hemoglobin 12.5 12.5 12.1 10.7 (L) 10.5 (L) Hematocrit 38.8 39.7 38.6 34.4 (L) 33.6 (L) Platelet Count 138 (L) 154 165 182 177 Protein, Total 6.4 6.3 6.6 6.5 6.6 Albumin 3.3 (L) 3.1 (L) 3.3 (L) 3.3 (L) 3.4 (L) Calcium 8.9 8.6 8.6 8.5 8.4 (L) Bilirubin, Total 0.5 0.4 0.4 0.4 0.4 Alkaline Phosphatase 157 (H) 97 105 89 87 AST 13 22 19 18 14 Glucose 832 (H) 390 (H) 423 (H) 87 230 (H) BUN 38 (H) 45 (H) 49 (H) 85 (H) 94 (H) Creatinine 1.40 (H) 1.49 (H) 1.56 (H) 2.82 (H) 2.98 (H) Sodium 126 (L) 136 138 133 (L) 134 (L) Potassium 5.2 (H) 5.1 4.7 5.2 (H) 5.3 (H) Chloride 85 (L) 96 (L) 96 (L) 98 95 (L) CO2 31 (H) 26 32 (H) 24 25 Anion Gap 10 14 10 11 14 ALT 24 24 26 17 16 eGFR-All Other Races 37 34 32 16 15 Absolute nRBC <0.01 CK 49 MB 5.8 (H) NT Pro BNP 2145 (H) 1630 (H) 1303 (H) 2941 (H) MARIN High Sensitivity 55 (H) Component Rng AND Units 09/23/2010 2010 T4 5.0 - 11.0 ug/dL 9.4 Free Cortisol, Serum 1.14 . . . TSH 0.400 - 5.500 uU/mL 1.300 PFT 11/12/2017: Spirometry ? Ref Urban %Ref? FVC ?Liters ? ? ? 3.29 ?1.15 ?35 FEV1 ? ? ? Liters ? ? ?2.48 ?0.93 ?37 FEV1/FVC ? % ?0.75 ?0.80 KFY878% ? ?Sec ? ? ? 6.50 Diffusing Capacity DLCO ? ? 21.5 ?9.0 ? 42 DLCO/VA ? 4.01 ? ? ? 4.10 ?102 ? PFT 07/16/04: ? Spirometry ? Pred? ?Urban %Pred FVC ? ? 3.22 ? 2.37 ? ? 73 ? FEV 1 ? 2.52 ? 1.87 ? ? 74 ? Ratio ? 0.77 ? 0.79 ? ? ? 25-75% 2.39 ? 1.02 ? 1.65 ? 69 ? CXR 01/27/2018: IMPRESSION: 1. Lines, Tubes, and Devices: ?None 2. Lungs and Pleura: ?Left lower lung field again difficult to evaluate due to the size of the heart. ?There is be some persistence of prominent lung markings which could represent atelectasis scarring and/or infiltrate. 3. Cardiomediastinal silhouette: ?Moderate cardiomegaly noted. Pulmonary vascularity is unremarkable. 4. Other: ?Bony structures unremarkable. CXR 02/07/2018: IMPRESSION: Lines, tubes, and devices: ?Pacemaker wire in the right ventricle Lungs and pleura: ?Mild vascular prominence and indistinctness may indicate mild congestion. No obvious pleural effusions. Left base streaky densities probably subsegmental atelectasis and is not significantly changed. Cardiomediastinal silhouette: ?Moderately enlarged, stable I have personally and independently reviewed these CXR images and I concur with the findings as described. TO CT CHEST 12/10/2017: IMPRESSION: Linear densities RIGHT middle lobe and LEFT lung base consistent with atelectasis and/or fibrosis. ?Nonspecific groundglass airspace disease posterior RIGHT lower lobe base. ?Follow-up is recommended. Left pleural thickening with calcific a cyst. ?This may be due to remote hemothorax. Cardiomegaly I have personally and independently reviewed these chest CT images and note cardiomegaly, dilatation and wall thickening of the intra-thoracic esophagus. No evidence of emphysema, interstitial lung disease or mass. TO Echocardiogram 12/21/2017: LEFT VENTRICLE The left ventricle is normal in size. There is mild left ventricular hypertrophy. Left ventricular systolic function is mildly decreased. Grade III left ventricular diastolic dysfunction. Wall Motion: The basal anteroseptal segment is severely hypokinetic. All remaining scored segments are normal. RIGHT VENTRICLE The right ventricle is dilated. Right ventricular systolic function is mildly decreased. RV systolic tissue Doppler velocity is 8.0 cm/s. Estimated right ventricular systolic pressure is 78 mmHg consistent with moderately severe pulmonary hypertension. Estimated right atrial pressure is 10 mmHg. LEFT ATRIUM The left atrial cavity is moderately dilated. RIGHT ATRIUM The right atrial cavity is dilated. Inferior Vena Cava: The inferior vena cava appears normal measuring 2.5 cm. The vessel decreases less than 50 percent with inspiration. MITRAL VALVE The mitral valve leaflets are structurally normal. [place] mitral valve. There is trivial (trivial - 1+) mitral valve regurgitation. TRICUSPID VALVE [place] tricuspid valve. There is moderate (2+ - 3+) tricuspid valve regurgitation. AORTIC VALVE The aortic valve cusps are structurally normal. There is no aortic valve stenosis. ?There is no aortic valve regurgitation. Tricuspid aortic valve. PULMONIC VALVE The pulmonic valve was not seen or not interrogated. There is no pulmonic valve regurgitation. AORTA The visualized aorta is normal in size. Measurements - Sinus 3.1 cm. Mid ascending aorta 3.4 cm. INTERVENTRICULAR SEPTUM There is abnormal motion of the interventricular septum secondary to prior cardiac ?surgery. PERICARDIUM There is no pericardial effusion. CONCLUSIONS: - Technically difficult exam due to body habitus and COPD. - Exam indication: s/p myectomy - The left ventricle is normal in size. There is mild left ventricular hypertrophy. Left ventricular systolic function is mildly decreased. EF = 50 ? 5% (visual est.) Grade III left ventricular diastolic dysfunction. - The right ventricle is dilated. Right ventricular systolic function is mildly decreased. - The left atrial cavity is moderately dilated. - The right atrial cavity is dilated. - There is moderate (2+ - 3+) tricuspid valve regurgitation. - Estimated right ventricular systolic pressure is 78 mmHg consistent with moderately severe pulmonary hypertension. Estimated right atrial pressure is 10 mmHg. - Definity contrast could not be administered d/t unavailability of staff. - s/p myectomy: LVOT gradient at rest 6 mmHg, trivial-1+ MR. Patient unable to valsalva. - Exam was compared with the prior echocardiographic exam performed on 09/23/2010. LV function is normal on this study, and the patient appears to be in NSR (was in AF with RVR on prior study) Electronically signed by Jose C Yeung MD IMPRESSION: 1. Acute decompensation does NOT appear to be due to COPD exacerbation (no change in sputum or cough), and PFTs do NOT demonstrate obstructive ventilatory impairment. The PFTs DO demonstrate a 2004 mild and 2018 very severe restrictive ventilatory impairment with NORMAL DLCO/VA consistent with the mechanical effects of obesity. 2. Chronic hypoxemic hypercarbic respiratory failure, due to the severe restrictive ventilatory impairment of obesity. NO evidence of obstructive ventilatory impairment on either 2003 or 2017 PFTs. 3. Acute/chronic cor pulmonale due to severe pulmonary hypertension, attributable to diastolic and segmental systolic LV dysfunction, causing chronic elevation in LVEDP (as reflected by echocardiographic evidence of LA dilatation) and pulmonary venous hypertension). 2010 thyroid studies noted, but should be updated. I cannot exclude contribution to elevation of pulmonary artery pressure from obesity-hypoventilation syndrome and non-compliance/intolerance of CPAP Rx prescribed for obstructive sleep apnea. RECOMMENDATIONS: 1. I see no evidence for use of IV methyl-prednisolone, and recommend switching to oral prednsione and reducing tapering/eliminating quickly. 2. As 2003 and 2017 PFTs show NO airflow obstruction, I also doubt the benefit of scheduled Ipratropium/Albuterol via nebulizer. - Consider only as needed use. 3. Continue supplemental O2, targeting spO2 902% or more. - NC appears adequate by oximetry record and ABG. 4. Diuretic Rx appears prudent as I/O record, weight gain in hospital and rising NT pro BNP consistent with volume overload/CHF. - Defer decision making to Hospitalist, Cardiology and Nephrology consultants. 5. Empiric use of AutoPAP rather than 5 cm CPAP during sleep; however, exact settings are arbitrary, as PAP titration not done, not on record. - Initial settings written, and can adjust based on clinical response and patient tolerance. - Definitive Diagnostic Polysomnogram and PAP titration needs done as outpatient once compensation. 6. Severe obesity. Body Mass Index (BMI) of 38.38 at current weight of 252 pounds. Upper limit of normal BMI is 18.5-25, corresponding to a goal weight 120-165 pounds in an individual 5'8 tall. The patient is at least 87 pounds overweight. - Weight loss is critical. Consider referral to Weight Management program such as Weight Watchers. Age and cardiac disease would appear contraindications to Bariatric Surgery program. Donnell Cruz MD, [facility] [place] [address] P: [phone] F: [phone] Previous Version Shruti Nair MD 02/09/2018 12:05 PM Signed DIABETES PROGRESS NOTE PATIENT NAME: Luz Baca SERVICE DATE: 02/09/2018 ASSESSMENT AND PLAN Ms. Baca is a 77 year old female with a 15?year history of Diabetes Mellitus Type 2 hyperglycemia?who was admitted on 01/27/2018 for chest pain. We are consulted for diabetes mgmt. ? Uncontrolled type 2 diabetes BG have been elevated due to steroid Currently on methylpred 40 mg BID increase Lantus 33?units QHS and 15 units QAM ? Continue humalog to7?units AC TID ? Continue ?Supplemental Sliding Scale: Humalog Program #2 AC ? ? Accuchecks: AC/HS ? notify endocrinology if BG < 80 or > 200 ? ? Interval HPI Increase dyspnea PO intake is good Preadmission insulin regimen: Lantus 50?units ?Q am and 36 units at HS Humalog 12?units ?TID and Q AC pen Sliding scale: One unit for every 25?mg/dL PAST MEDICAL HISTORY: PAST MEDICAL HISTORY Diagnosis Date - Arthritis - Atrial fibrillation (HCC) - CAD (coronary artery disease) stents x9, defibrillator, CABG. Seeing Dr. Cardona - Cardiac defibrillator in place - Cardiomegaly - Carotid artery disease ([facility]) left - Chronic kidney disease (CKD) stage G3b/A2, moderately decreased glomerular filtration rate (GFR) between 30-44 mL/min/1.73 square meter and albuminuria creatinine ratio between 30-299 mg/g Dr. Martin - COPD (chronic obstructive pulmonary disease) ([facility]) Dr. Cruz - Depression - Diabetes ([facility]) - Diabetic neuropathy ([facility]) - Edema - GERD (gastroesophageal reflux disease) - Gout with hyperuricemia - HH (hiatus hernia) - HOCM (hypertrophic obstructive cardiomyopathy) ([facility]) S/P Septal Myectomy in 2003. Now with LVEF 50% and mod/severe pulm HTN. - HTN (hypertension) - Hyperlipidemia - Morbid obesity with BMI of 40.0-44.9, adult ([facility]) - Sleep apnea 2011 not on CPAP, unable to tolerate mask 02/2017 - SVT (supraventricular tachycardia) ([facility]) NSVT and questionable VT in 2003 post op CURRENT MEDICATION: Current Facility-Administered Medications: furosemide 80 mg tab(s) (LASIX) 80 mg ORAL BID 9a/5p Malena A Argekar 80 mg at 02/09/18 0856 LORazepam 1 mg injection (ATIVAN) 1 mg INTRAVENOUS q 6 H PRN Russell Baldi 1 mg at 02/08/18 1336 ipratropium-albuterol 3 mL nebulizer solution (DUONEB) 3 mL INHALATION q 4 H while awake Russell Baldi 3 mL at 02/09/18 1023 albuterol 2.5 mg /3 mL (0.083 %) 2.5 mg (PROVENTIL) 2.5 mg INHALATION q 4 H PRN Russell Baldi methylPREDNISolone sod succinate(PF) 40 mg injection (Solu- MEDROL) 40 mg INTRAVENOUS q 12 H Russell Cooperdi 40 mg at 02/09/18 0858 insulin glargine 12 Units injection (long acting) (LANTUS) 12 Units SUBCUTANEOUS DAILY (8 AM) Som Jodie 12 Units at 02/09/18 0855 insulin glargine 30 Units injection (long acting) (LANTUS) 30 Units SUBCUTANEOUS AT BEDTIME Som Jodie 30 Units at 02/08/18 210 insulin lispro injection (rapid acting) (HumaLOG) SUBCUTANEOUS AT BEDTIME Som Jodie 3 Units at 02/08/18 210 amiodarone 200 mg tab(s) (PACERONE) 200 mg ORAL DAILY Qarab Ronal Darrell 200 mg at 02/09/18857 HYDROcodone 5 mg - acetaminophen 325 mg tablet (NORCO) 1 tablet ORAL q 6 H PRN Radha Adams) Thuestad 1 tablet at 02/07/182236 melatonin 3 mg tab(s) 3 mg ORAL AT BEDTIME Caroline (Audio Production Engineer) Garcia 3 mg at 02/08/182103 simvastatin 20 mg tab(s) (ZOCOR) 20 mg ORAL AT BEDTIME Qarab Ronal Darrell 20 mg at 02/08/182103 aluminum-magnesium hydroxide-simethicone 200-200-20 mg/5 mL 15 mL (MAALOX,MYLANTA,MAG-AL PLUS) 15 mL ORAL q 4 H PRN Radha Adams) Thuestad insulin lispro 7 Units injection (rapid acting) (HumaLOG) 7 Units SUBCUTANEOUS w MEALS Shruti Hasan 7 Units at 02/09/18 09 insulin lispro injection (rapid acting) (HumaLOG) SUBCUTANEOUS w MEALS Shruti Hasan 4 Units at 02/09/18 09 carvedilol 3.125 mg tab(s) (COREG) 3.125 mg ORAL BID w MEALS Qarab Ronal Darrell 3.125 mg at 02/09/18 08 cholecalciferol 1,000 Units tab(s) (VITAMIN D3) 1,000 Units ORAL DAILY Malena A Argekar 1,000 Units at 02/09/18 0857 allopurinol 100 mg tab(s) (ZYLOPRIM) 100 mg ORAL DAILY Malena A Argekar 100 mg at 02/09/18 0858 docusate sodium 100 mg cap(s) (COLACE) 100 mg ORAL BID Radha Ebonie Adams) Thuestad 100 mg at 02/08/18 2104 polyethylene glycol 3350 17 g packet (MIRALAX, GLYCOLAX) 17 g ORAL DAILY Radha Ebonie Adams) Thuestad 17 g at 02/02/18 1046 bisacodyl 10 mg suppository (DULCOLAX) 10 mg RECTAL DAILY PRN Radha Adams) Linkuestad sodium chloride 0.65 % 2 Parker (AYR, OCEAN) 2 Parker EACH NOSTRIL PRN Zuhair Wick apixaban 2.5 mg tab(s) (ELIQUIS) 2.5 mg ORAL BID Radha Ebonie Adams) Thuestad 2.5 mg at 02/09/18 0858 gabapentin 200 mg cap(s) (NEURONTIN) 200 mg ORAL BID Malena A Argekar 200 mg at 02/09/18 0857 ondansetron orally disintegrating 4 mg tab(s) (ZOFRAN ODT) 4 mg ORAL q 6 H PRN Zuhair Wick 4 mg at 02/04/18 0835 acetaminophen 650 mg tab(s) (TYLENOL) 650 mg ORAL q 6 H PRN Shameer Khubber 650 mg at 02/07/18 1516 ipratropium-albuterol 3 mL nebulizer solution (DUONEB) 3 mL INHALATION q 4 H PRN Raymond (Gorge) Claire 3 mL at 02/09/[address] 40 mg tab(s) (PROTONIX) 40 mg ORAL BID Raymond (Gorge) Claire 40 mg at 02/09/18 1047 bacitracin 1 application topical ointment 1 application TOPICAL BID Raymond (Gorge) Claire 1 application at 02/09/18 0900 isosorbide mononitrate ER 60 mg tab(s) (IMDUR) 60 mg ORAL DAILY Raymond (Gorge) Claire 60 mg at 02/09/18 0857 0.9% NaCl 3-5 mL 3-5 mL INTRAVENOUS q 12 H Raymond (Gorge) Claire 5 mL at 02/09/18 0905 dextrose 40 % 15 g 15 g ORAL PRN Raymond (Gorge) Claire Or glucagon 1 mg injection (GLUCAGEN) 1 mg INTRAMUSCULAR PRN Raymond Rangel (Pa) Or dextrose 50% in water 25 mL syringe 12.5 g INTRAVENOUS PRN Raymond Rangel (Pa) miconazole 2 % 1 application topical powder (LOTRIMIN AF, DESENEX) 1 application TOPICAL BID Gloria Singer 1 application at 02/09/18 1049 CURRENT ALLERGIES: Allergies As of Date: 01/27/2018 Allergen Noted Reaction ASPIRIN 01/20/2018 Other: See Comments BACTRIM [SULFAMETHOXAZOLE-TRIMETH*05/17/2017 Other: See Comments LATEX 05/17/2017 Rash and Itching PENICILLINS 07/14/2004 Rash and Itching TETRACYCLINE 09/29/2010 Rash and GI Upset ATORVASTATIN 05/17/2017 Rash CODEINE 05/17/2017 Other: See Comments DILAUDID [HYDROMORPHONE (BULK)] 05/17/2017 Mental Status Change MEPERIDINE 07/14/2004 PENTAZOCINE 07/14/2004 PIOGLITAZONE 05/17/2017 Unknown PROPOXYPHENE 07/14/2004 Fully Assessed 01/27/2018 COMPLETE REVIEW OF SYSTEMS: General: no fever, chills or acute changes in weight in the last 6 months Skin: no rashes, pruritis or dry skin Cardiac: denies chest pain, heart palpitations or orthopnea Pulmonary: see HPI GI: denies nausea, vomiting, diarrhea or constipation Neuro: denies numbnes/tingling in hands or feet and denies seizures Musc: denies history of upper or lower extremity weakness Endocrine: denies polyuria, polydipsia, nocturia, blurry vision or excessive fatigue Hematology: Negative for anemia, easy bleeding and bruising. OBJECTIVE PHYSICAL EXAM: BP 120/57 Pulse 38 Temp 36.7 ?C (98.1 ?F) (Axillary) Resp 18 Ht 172.7 cm (5' 8) Wt 113.4 kg (249 lb 14.4 oz) SpO2 96% BMI 38 kg/m2 General: Well appearing, alert, in no acute distress, well- hydrated, well nourished. Skin: skin color, texture, turgor normal, no rashes or lesions. Heart: RRR without murmur, gallop, or rubs. No ectopy Pulmonary: Lungs clear to auscultation. No wheezing, rhonchi, rales Abdomen: soft, non-tender, positive bowel sounds Extremities: no edema, no calluses or ulcers present. DATA: Diagnostic tests reviewed for today: Recent Labs 02/09/18 1104 02/09/18 0722 02/08/18 2040 02/08/18 1713 02/08/18 1541 02/08/18 1213 02/08/18 0753 02/07/18 2107 02/07/18 1629 02/07/18 1554 02/07/18 1139 02/07/18 0830 02/07/18 0506 02/07/18 0442 02/06/18 2057 02/06/18 1630 02/06/18 1225 PCGLUCOSE 378* 232* 271* 149* 116* 82 89 156* 115* 58* 104* 125* 83 56* 97 141* 115* Glucose, Point of Care Date Value Ref Range Status 02/09/2018 378 (A) 74 - 99 mg/dL Final Comment: Meter ID:[id number] SIGNATURE: Shruti Nair MD DATE: February 09, 2018 Vanessa Gonzalez RN, RN 02/09/2018 12:21 PM Signed CARE MANAGEMENT PROGRESS NOTE SERVICE DATE: 02/09/2018 SERVICE TIME: 12:20 PM LOS: 12 days EMR reviewed. Spoke to Dr Strickland. NEED PT/OT notes, Possible SNF needs. POSSIBLE WEEKEND DC PER MD. High Risk PCC Remi Rehn On 3L n/c today Chronic 2.5 LO2 at home. From home with dtr. [facility]ose [facility] NEED F2F, Dtr will transport. SIGNATURE: Vanessa Gonzalez RN PATIENT NAME: Luz Baca DATE: February 09, 2018 TIME: 12:20 PM PAGER/CONTACT #: [phone] Russell Strickland MD 02/09/2018 3:41 PM Signed INTERNAL MEDICINE PROGRESS NOTE SERVICE DATE: 02/09/2018 SERVICE TIME: 1530 ADMITTING PHYSICIAN: Gloria Singer Subjective CHIEF COMPLAINT: sob Current Facility-Administered Medications: furosemide 80 mg tab(s) (LASIX) 80 mg ORAL BID 9a/5p LORazepam 1 mg injection (ATIVAN) 1 mg INTRAVENOUS q 6 H PRN ipratropium-albuterol 3 mL nebulizer solution (DUONEB) 3 mL INHALATION q 4 H while awake albuterol 2.5 mg /3 mL (0.083 %) 2.5 mg (PROVENTIL) 2.5 mg INHALATION q 4 H PRN methylPREDNISolone sod succinate(PF) 40 mg injection (Solu- MEDROL) 40 mg INTRAVENOUS q 12 H insulin lispro injection (rapid acting) (HumaLOG) SUBCUTANEOUS AT BEDTIME amiodarone 200 mg tab(s) (PACERONE) 200 mg ORAL DAILY HYDROcodone 5 mg - acetaminophen 325 mg tablet (NORCO) 1 tablet ORAL q 6 H PRN melatonin 3 mg tab(s) 3 mg ORAL AT BEDTIME simvastatin 20 mg tab(s) (ZOCOR) 20 mg ORAL AT BEDTIME aluminum-magnesium hydroxide-simethicone 200-200-20 mg/5 mL 15 mL (MAALOX,MYLANTA,MAG-AL PLUS) 15 mL ORAL q 4 H PRN insulin lispro 7 Units injection (rapid acting) (HumaLOG) 7 Units SUBCUTANEOUS w MEALS insulin lispro injection (rapid acting) (HumaLOG) SUBCUTANEOUS w MEALS carvedilol 3.125 mg tab(s) (COREG) 3.125 mg ORAL BID w MEALS cholecalciferol 1,000 Units tab(s) (VITAMIN D3) 1,000 Units ORAL DAILY allopurinol 100 mg tab(s) (ZYLOPRIM) 100 mg ORAL DAILY docusate sodium 100 mg cap(s) (COLACE) 100 mg ORAL BID polyethylene glycol 3350 17 g packet (MIRALAX, GLYCOLAX) 17 g ORAL DAILY bisacodyl 10 mg suppository (DULCOLAX) 10 mg RECTAL DAILY PRN sodium chloride 0.65 % 2 Parker (AYR, OCEAN) 2 Parker EACH NOSTRIL PRN apixaban 2.5 mg tab(s) (ELIQUIS) 2.5 mg ORAL BID gabapentin 200 mg cap(s) (NEURONTIN) 200 mg ORAL BID ondansetron orally disintegrating 4 mg tab(s) (ZOFRAN ODT) 4 mg ORAL q 6 H PRN acetaminophen 650 mg tab(s) (TYLENOL) 650 mg ORAL q 6 H PRN ipratropium-albuterol 3 mL nebulizer solution (DUONEB) 3 mL INHALATION q [address] 40 mg tab(s) (PROTONIX) 40 mg ORAL BID bacitracin 1 application topical ointment 1 application TOPICAL BID isosorbide mononitrate ER 60 mg tab(s) (IMDUR) 60 mg ORAL DAILY 0.9% NaCl 3-5 mL 3-5 mL INTRAVENOUS q 12 H dextrose 40 % 15 g 15 g ORAL PRN Or glucagon 1 mg injection (GLUCAGEN) 1 mg INTRAMUSCULAR PRN Or dextrose 50% in water 25 mL syringe 12.5 g INTRAVENOUS PRN miconazole 2 % 1 application topical powder (LOTRIMIN AF, DESENEX) 1 application TOPICAL BID INTERVAL HISTORY OF PRESENT ILLNESS: Doing better today, no f/c, no headaches or dizziness, no cp or palps No n/v/d, cough and sob Objective PHYSICAL EXAM: Patient Vitals for the past 24 hrs: BP Temp Temp src Pulse Resp SpO2 Weight 02/09/18 1521 - - - (!) 38 16 98 % - 02/09/18 1105 - - - 78 - - - 02/09/18 1103 120/57 36.7 ?C (98.1 ?F) Axillary (!) 38 18 96 % - 02/09/18 1046 - - - 78 16 - - 02/09/18 1024 - - - 75 16 97 % - 02/09/18 0720 - - - 60 - - - 02/09/18 0718 119/78 36.5 ?C (97.7 ?F) Oral (!) 50 16 96 % - 02/09/18 0640 - - - 60 16 - - 02/09/18 0630 - - - 62 18 97 % - 02/09/18 0600 - - - - - - 113.4 kg (249 lb 14.4 oz) 02/09/18 0442 115/53 36.6 ?C (97.9 ?F) Temporal Art 63 18 94 % - 02/09/18 0113 - - - 60 18 - - 02/09/18 0103 - - - (!) 59 18 96 % - 02/09/18 0009 110/53 36.3 ?C (97.3 ?F) Oral 70 20 94 % - 02/08/182005 - - - 76 18 92 % - 02/08/181999 - - - 77 - - - 02/08/181953 (!) 122/47 36.6 ?C (97.8 ?F) Oral (!) 38 20 92 % - 02/08/18 1739 124/55 - - 99 - - - 02/08/18 1636 - - - (!) 58 20 93 % - Body mass index is 38 kg/(m2). GENERAL: Alert, no distress, cooperative SKIN: Skin color, texture, turgor normal. No rashes or lesions. OROPHARYNX: Lips, mucosa, and tongue are normal.Teeth and gums, normal. Oropharynx normal. NECK: No carotid bruits LUNGS: Lungs clear to auscultation. Good diaphragmatic excursion. CARDIAC: Normal S1 and S2; no rubs, murmurs, or gallops ABDOMEN: Abdomen soft, non-tender, BS normal, No masses or organomegaly EXTREMITIES: Extremities normal, no deformities, edema, clubbing or skin discoloration. Good capillary refill. DATA: Diagnostic tests reviewed for today's visit: Most recent labs and imaging results. Assessment/Plan Principal Problem: Chest pain in adult POA: Yes Assessment AND Plan: trops have been stable and likely elevated due to CKD. Nl stress test 08/03 Active Problems: Chronic co mbined systolic and diastolic CHF (congestive heart failure) (HCC) POA: Yes Assessment AND Plan: bnp has increased while admitted 1300 to 2941 despite attempted diuresis and Cr has increased with diuresis Currently on po lasix after being on lasix gtt. 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 * SIGNATURE: Russell Strickland MD PATIENT NAME: Luz Baca DATE: February 09, 2018 TIME: 3:33 PM PAGER/CONTACT #: [phone] Ella Esquivel RN, RN 02/10/2018 10:06 AM Addendum Event(s) / Intervention Note: The patient was observed having the following problems: elevated K of 5.5. Other labs also out of normal range. The time of the event occurred at: 0725. The following intervention(s) were initiated: no further intervention at this time, will continue to observe and check with patient. and Dr. Strickland/Hospitalist notified via pager [phone]. After the initiated interventions, the following observation(s) were made: patient has no complaints. and nothing further noted. Will continue to observe and check with patient.. 1000: Spoke with MD Strickland, she is fine with pt's K being 5.5, no correction needed. Also discussed other labs out of normal range. Ella Esquivel Previous Version LETICIA Cain/Elver 02/10/2018 11:01 AM Signed OCCUPATIONAL THERAPY MISSED VISIT SERVICE DATE: 02/10/2018 SERVICE TIME: 1100 to 1100 ROOM: [id number] Attempted Evaluation. Patient not seen due to Declined (RN exiting room, pt requesting to hold therapy at this time.) Will attempt as able. SIGNATURE: LETICIA Cain/Elver PATIENT NAME: Luz Baca DATE: February 10, 2018 TIME: 11:01 AM PAGER/CONTACT #:[phone] LETICIA Cain/Elver 02/10/2018 1:36 PM Signed Occupational Therapy Evaluation SERVICE DATE: 02/10/2018 SERVICE TIME: 1140 to 1230 ROOM: [id number] Recommended Discharge Disposition: Home OT Recommended Discharge Disposition Comments: to improve overall strength, endurance, provide education on ECWS, and ensure safety with ADLs and ADL transfers Anticipated Discharge Needs: Physical Assist at Home;Supervision at Home;Equipment Physical Assist at Home for: Transportation;Shopping;Self Care;Safety;Medication Management;Meals;Laundry;Cleaning Supervision at Home due to: Decreased safety awareness (Initially for safety) Recommended Discharge Equipment: Shower Chair OT Recommendations to Nursing: ADL?s in chair;To Bathroom for ADL?s /and or Toileting;OOB for meals;With assist of 1 person OT 6 Clicks Score: 20 Precautions/Activity Restrictions: Diabetic;Diet Restrictions;Fall Risk;Lines/Tubes/Drains ASSESSMENT: Pt presents with decreased activity tolerance, functional mobility, and general strength impacting ability to function without assist from caregivers. Pt demonstrates slightly decreased safety awareness. Currently Contact Guard Assistance for out of bed activity. Pt AANDO x 3. Pt participates during functional activities as able and is highly motivated to participate with therapy. Requires monitoring of vitals to ensure safety. Pt has very supportive daughter who assist with ADLs as needed. Pt would benefit from further skilled therapy to address above deficits for increased safety with functional activity as well as progress activities within safe limits . Pt would benefit from skilled OT for education for ECWS, and safety, would benefit from shower chair, and to increase Ind with ADLS and ADL transfers Patient Disposition at Start of Session: Family Present Patient Disposition at End of Session: OOB in Chair;Other: See Comment (RN bedside working with pt) Tolerated Full Session (with EDMONDS; monitored vitals WFL) Vital Signs Pre Assessment: O2 Equipment (Vitals monitored throughout, stayed WFL) Pre SpO2: 3 Occupational Therapy Problem List: Impaired Self Care;Decreased Activity Tolerance;Safety Deficits;Pain;Functional Mobility Impairment Patient /Caregiver Goals: Go Home Goals for Plan of Care: Able to perform HEP with: Modified Independent Grooming with: Supervision Upper Body Dressing with: Set Up Chair Transfer with: Stand By Assistance Toilet Transfer with: Stand By Assistance Tolerate (minutes of functional activity): 10 Functional Activity with: Stand By Assistance Home Management Skills with: Stand By Assistance Demonstrate Competence With Education with: Verbal Cues Only Rehab Potential: Good PLAN: Treatment Frequency (times per week): 3 Current admission Treatment Interventions: Education;Self Care / Home Management;Energy Conservation Training;Strengthening;Functional Mobility Training;Balance Training;Cognitive Training Plan of Care developed with: Patient TREATMENT INTERVENTIONS: Therapy Diagnosis: Decreased activities of daily living (ADL);Muscle Weakness (generalized);Unsteadiness on feet;General symptoms and signs- other;Signs and Symptoms Involving Cognitive Functions and Awareness Interventions Provided: Evaluation;Therapeutic Activity (89591);Self Retirement Management (20302) $ Evaluation-Low (68638) Billed Units: 1 unit Therapeutic Activity (34105) Treatment Minutes: 15 1 unit Skilled Intervention(s): Instructed, cued and facilitated pt in sit to stand technique with proper hand placement and body positioning at edge of bed. Instruction in stand to sit technique with lower extremities touching chair/bed and reaching back for surface. (Completed sit>stand x3 times during completion of self care tasks at EOB. ) Facilitated functional mobility to bathroom and back providing contact guard assist with wheeled walker. Facilitated transfer from bed to chair providing contact guard assist. Self Retirement Management (77000) Treatment Minutes: 25 2 units Skilled Intervention(s): Educated pt on OT role, POC, and progression of therapy services. Pt educated in importance of out of bed activity including active participation in daily care and sitting in chair for meals and throughout day for rehabilitation and to prevent functional decline. Initiated and facilitated self care tasks. Facilitated active participation in upper body dressing providing contact guard assist to kyle/doff gown. Facilitated active participation in upper body bathing providing contact guard assist, while seated at EOB. Facilitated active participation in lower body dressing providing supervision, to kyle slippers Facilitated active participation in lower body bathing providing contact guard assist, while standing at EOB. Facilitated active participation in grooming providing contact guard assist completing hand hygiene while standing at sink Educated pt on activity pacing: working at moderate, consistent rate and to avoid sudden bursts of energy Educated pt on importance of rest breaks and to not wait until you're tired for rest breaks. Educated pt on benefits of planning activities ahead of time and some work simplification techniques for home environment. Educated pt on energy conservations techniques to utilize during grooming, dressing, and home management and some adaptive equipment to increase independence in self care activities. Educated pt on pursed lip breathing to ensure safety throughout functional activity. Monitored pts vitals throughout, pt's vitals WNL. Total Timed Code Treatment Minutes: 40 Total Treatment Time (minutes): 50 FUNCTIONAL G CODE: OT 6 Clicks Score: 20 (02/10/18 1140) Self Care Current Status (G8987): CJ (02/10/18 1140) Self Care Goal Status (G8988): CJ (02/10/18 1140) Based on clinical assessment and the score on the 6 Clicks Functional Assessment Tool, the G code and corresponding severity modifiers are documented above. SUBJECTIVE: Current Hospital Course: Chart reviewed; 02/10/18: elevated K of 5.5: per chart MD Strickland, she is fine with pt's K being 5.5, no correction needed. Also discussed other labs out of normal range. Reason for Occupational Therapy Consult: Pt presenting with chest pain; OT consult: Safety assessment Relevant Past Medical History: Afib, CAD, CKD, COPD, DM, depression, HOCM, HTN, HLD Patient Report: Ok per RN to treat. Pt was agreeable to OT and was pleasant throughout. I can't describe the pain, it's dull. Pt with no signs/complaints of lightheadedness, dizziness, SOB, prior to mobility. Home Environment Patient Lives With: Family (Daughter) Assistance Available: 24 Hour Entry To Home: Stairs;Without Rail Number Of Stairs Into Home: 2 Number Of Stairs To Bed/Bath: 1st floor set up Tub/Shower Type: Tub shower combination Laundry: Daughter completes Equipment Owned: Commode-Bedside;Grab Bars-Shower;Cane;Wheeled Walker;Hospital Bed;Home Oxygen Prior Functional Level: Required Assistance Assistance Required With: Transportation;Shopping;Self Care;Safety;Meals;Laundry;Cleaning Prior Functional Level Comments: Requires assist PRN for ADLs, dtr completes IADLs, ambulates with wheeled walker, on 2-3 L of Home O2 OBJECTIVE: Responsiveness: Alert;Awake Follows Commands: 3-step Commands;Cueing Needed Cueing to Follow Commands: Minimum Executive Function Deficits: Safety Awareness Safety Awareness Deficit: Minimal impairment Vision Deficits: Wears glasses Short Blessed Final Score: 11 CURRENT FUNCTIONAL STATUS: Current Activities of Daily Living Assist Level Feeding Set Up (per clinical judgment) Grooming Contact Guard Assistance (hand hygiene at sink) Bathing Upper Body Contact Guard Assistance Bathing Lower Body Contact Guard Assistance Dressing Upper Body Contact Guard Assistance Dressing Lower Body Supervision (slip on slippers) Toileting Functional Mobility Assist Level Rolling Supine to Sit (Pt sitting at EOB upon arrival) Sit to Supine Scooting Sit to Stand Contact Guard Assistance Stand to Sit Contact Guard Assistance Bed to Chair Contact Guard Assistance Stand Pivot Toilet/Commode Functional Mobility Contact Guard Assistance Wheeled Walker Balance: Static Sitting;Dynamic Sitting;Static Standing;Dynamic Standing Static Sitting Balance: Supervision Dynamic Sitting Balance: Supervision Static Standing Balance: Stand By Assistance Dynamic Standing Balance: Contact Guard Assistance Please see discipline specific clinical documentation flowsheet for complete details for this therapy evaluation/treatment. SIGNATURE: LETICIA Cain/Elver PATIENT NAME: Luz Baca DATE: February 10, 2018 TIME: 1:12 PM PAGER: [phone] Russell Strickland MD 02/10/2018 2:39 PM Addendum INTERNAL MEDICINE PROGRESS NOTE SERVICE DATE: 02/10/2018 SERVICE TIME: 1430 ADMITTING PHYSICIAN: Gloria Singer Subjective CHIEF COMPLAINT: Chest pain Current Facility-Administered Medications: ipratropium-albuterol 3 mL nebulizer solution (DUONEB) 3 mL INHALATION q 4 H PRN insulin glargine 15 Units injection (long acting) (LANTUS) 15 Units SUBCUTANEOUS DAILY (8 AM) insulin glargine 33 Units injection (long acting) (LANTUS) 33 Units SUBCUTANEOUS AT BEDTIME LORazepam 1 mg injection (ATIVAN) 1 mg INTRAVENOUS q 6 H PRN insulin lispro injection (rapid acting) (HumaLOG) SUBCUTANEOUS AT BEDTIME amiodarone 200 mg tab(s) (PACERONE) 200 mg ORAL DAILY HYDROcodone 5 mg - acetaminophen 325 mg tablet (NORCO) 1 tablet ORAL q 6 H PRN melatonin 3 mg tab(s) 3 mg ORAL AT BEDTIME simvastatin 20 mg tab(s) (ZOCOR) 20 mg ORAL AT BEDTIME aluminum-magnesium hydroxide-simethicone 200-200-20 mg/5 mL 15 mL (MAALOX,MYLANTA,MAG-AL PLUS) 15 mL ORAL q 4 H PRN insulin lispro 7 Units injection (rapid acting) (HumaLOG) 7 Units SUBCUTANEOUS w MEALS insulin lispro injection (rapid acting) (HumaLOG) SUBCUTANEOUS w MEALS carvedilol 3.125 mg tab(s) (COREG) 3.125 mg ORAL BID w MEALS cholecalciferol 1,000 Units tab(s) (VITAMIN D3) 1,000 Units ORAL DAILY allopurinol 100 mg tab(s) (ZYLOPRIM) 100 mg ORAL DAILY docusate sodium 100 mg cap(s) (COLACE) 100 mg ORAL BID polyethylene glycol 3350 17 g packet (MIRALAX, GLYCOLAX) 17 g ORAL DAILY bisacodyl 10 mg suppository (DULCOLAX) 10 mg RECTAL DAILY PRN sodium chloride 0.65 % 2 Parker (AYR, OCEAN) 2 Parker EACH NOSTRIL PRN apixaban 2.5 mg tab(s) (ELIQUIS) 2.5 mg ORAL BID gabapentin 200 mg cap(s) (NEURONTIN) 200 mg ORAL BID ondansetron orally disintegrating 4 mg tab(s) (ZOFRAN ODT) 4 mg ORAL q 6 H PRN acetaminophen 650 mg tab(s) (TYLENOL) 650 mg ORAL q [address] 40 mg tab(s) (PROTONIX) 40 mg ORAL BID bacitracin 1 application topical ointment 1 application TOPICAL BID isosorbide mononitrate ER 60 mg tab(s) (IMDUR) 60 mg ORAL DAILY 0.9% NaCl 3-5 mL 3-5 mL INTRAVENOUS q 12 H dextrose 40 % 15 g 15 g ORAL PRN Or glucagon 1 mg injection (GLUCAGEN) 1 mg INTRAMUSCULAR PRN Or dextrose 50% in water 25 mL syringe 12.5 g INTRAVENOUS PRN miconazole 2 % 1 application topical powder (LOTRIMIN AF, DESENEX) 1 application TOPICAL BID INTERVAL HISTORY OF PRESENT ILLNESS: No f/c, no headaches or dizziness, no palps, no cough, some sob, no n/v/d c/o chest pain happen with rest and exertion, severe when occur, pt reports they have been occurring since she had her defib moved Objective PHYSICAL EXAM: Patient Vitals for the past 24 hrs: BP Temp Temp src Pulse Resp SpO2 Weight 02/10/18 1338 - - - - 18 - - 02/10/18 1326 - - - 77 18 97 % - 02/10/18 1141 - - - 72 - - - 02/10/18 1138 108/63 36.3 ?C (97.3 ?F) Oral (!) 47 18 99 % - 02/10/18 1045 117/52 - - 60 20 97 % - 02/10/18 0827 - - - - 18 - - 02/10/18 0824 - - - (!) 56 - - - 02/10/18 0813 - - - (!) 49 18 97 % - 02/10/18 0810 112/80 - - - 22 97 % - 02/10/18 0751 113/58 36.4 ?C (97.5 ?F) Oral (!) 57 18 97 % - 02/10/18 0600 - - - - - - 114.5 kg (252 lb 6.4 oz) 02/10/18 0434 114/54 36.6 ?C (97.9 ?F) Oral 63 18 96 % - 02/09/18 2349 125/52 36.4 ?C (97.5 ?F) Oral 119 20 98 % - 02/09/182132 - - - 68 22 - - 02/09/182121 - - - 62 24 98 % - 02/09/18 1948 100/63 36.6 ?C (97.9 ?F) Oral 88 18 96 % - 02/09/18 1550 137/59 36.5 ?C (97.7 ?F) Oral (!) 40 18 95 % - 02/09/18 1533 - - - (!) 40 16 - - 02/09/18 1521 - - - (!) 38 16 98 % - Body mass index is 38.38 kg/(m2). GENERAL: Alert, no distress, cooperative SKIN: Skin color, texture, turgor normal. No rashes or lesions. OROPHARYNX: Lips, mucosa, and tongue are normal.Teeth and gums, normal. Oropharynx normal. NECK: No carotid bruits LUNGS: Lungs clear to auscultation. Good diaphragmatic excursion. CARDIAC: Normal S1 and S2; no rubs, murmurs, or gallops ABDOMEN: Abdomen soft, non-tender, BS normal, No masses or organomegaly EXTREMITIES: Extremities normal, no deformities, edema, clubbing or skin discoloration. Good capillary refill. DATA: Diagnostic tests reviewed for today's visit: Most recent labs and imaging results. Assessment/Plan Principal Problem: Chest pain in adult POA: Yes Assessment AND Plan: trops have been stable and likely elevated due to ckd. Nl stress test 08/03 Current cp doesn't sound cardiac in nature and pt reports some chest pain ever since her defibrillator was moved. ? If pain is more neuropathic or muscular but she is already on neurontin Active Problems: Chronic combined systolic and diastolic CHF (congestive heart failure) (HCC) POA: Yes Assessment AND Plan: bnp has increased while admitted from 1300 to 2941 despite attempted diuresis. Cr also is steadily rising. Currently on po lasix after being on lasix gtt. Cardio and renal following ECHO ef 50% grade 3 diastolic dysfunction and pulm htn Atrial fibrillation (HCC) POA: Yes Assessment AND Plan: cont eliquis and pacerone Uncontrolled type 2 diabetes mellitus with stage 3 chronic kidney disease, with long-term current use of insulin (HCC) POA: Yes Assessment AND Plan: a1c 12, cont insulin, ssi as needed Essential hypertension POA: Yes Assessment AND Plan: stable ROMÁN: baseline Cr 1.5, currently 3.26 Hyperkalemia; on low K diet Resolved Problems: * No resolved hospital problems. * SIGNATURE: Russell Strickland MD PATIENT NAME: Luz Baca DATE: February 10, 2018 TIME: 2:26 PM PAGER/CONTACT #: [phone] Previous Version Judit Nolasco, PT 02/10/2018 2:42 PM Signed PHYSICAL THERAPY MISSED VISIT SERVICE DATE: 02/10/2018 SERVICE TIME: 1035 to 1039 ROOM: [place] [address] Attempted Evaluation. Patient not seen due to Declined (sitting sitting at EOB,states very EDMONDS at rest). Patient reports having had ambulated down umanzor yesterday with minimal EDMONDS (however similar to baseline), feeling more EDMONDS this date however. Per chart and conversation with RN, potassium elevated at 5.5 (however no planned intervention per MD). Patient also relates having chest pain and with consideration to all above is politely declining. Will re-attempt when schedule permits either later this date or tomorrow. RN notified of pt refusal and plan to return as able. SIGNATURE: Judit Nolasco, PT PATIENT NAME: Luz Baca DATE: February 10, 2018 TIME: 2:40 PM PAGER/CONTACT #: Donnell Cruz MD 02/11/2018 9:58 AM Signed [facility] [place], 02/10/2018: I have reviewed the interval history and review of systems from the [facility] electronic medical record. Allergies and MAR reviewed today. DATA REVIEW: Component 01/26/2018 01/27/2018 02/08/2018 02/10/2018 Protein, Total 6.6 6.2 (L) Albumin 3.3 (L) 3.3 (L) Calcium 8.6 8.7 Bilirubin, Total 0.4 0.4 Alkaline Phosphatase 105 77 AST 19 12 (L) Glucose 423 (H) 152 (H) BUN 49 (H) 104 (H) Creatinine 1.56 (H) 3.26 (H) Sodium 138 131 (L) Potassium 4.7 5.5 (H) Chloride 96 (L) 94 (L) CO2 32 (H) 24 Anion Gap 10 13 ALT 26 14 eGFR-All Other Races 32 14 WBC 8.11 RBC 3.35 (L) Hemoglobin 10.1 (L) Hematocrit 32.0 (L) Hemoglobin A1C 12.0 (H) Estimated Average Glucose 298 NT Pro BNP 1303 (H) 2941 (H) IMPRESSION: 1. Acute/Chronic hypoxemic hypercarbic respiratory failure, due to the severe restrictive ventilatory impairment of obesity. NO evidence of obstructive ventilatory impairment on either 2003 or 2017 PFTs. 2. Acute/chronic cor pulmonale due to severe pulmonary hypertension, attributable to diastolic and segmental systolic LV dysfunction, causing chronic elevation in LVEDP. I cannot exclude contribution to elevation of pulmonary artery pressure from obesity-hypoventilation syndrome and non-compliance/intolerance of CPAP Rx prescribed for obstructive sleep apnea. 3. Acute kidney injury complicating chronic kidney disease; likely pre-renal; thought I doubt volume depletion with anasarca, weight record and I/O record. I suspect due to inadequate renal blood flow. ? RECOMMENDATIONS: 1. Dialysis and/or diuretic Rx, deferred to Jailer Chief and Hospitalist, as I/O record, weight gain in hospital and rising NT pro BNP consistent with volume overload/CHF. - Defer decision making to Hospitalist, Cardiology and Nephrology consultants. 2. Empiric use of AutoPAP rather than 5 cm CPAP during sleep; however, exact settings are arbitrary, as PAP titration not done, not on record. - Initial settings written, and can adjust based on clinical response and patient tolerance. - Definitive Diagnostic Polysomnogram and PAP titration needs done as outpatient once compensation. I spoke with daughter/DPOA for HC at bedside this afternoon, and advised her that I saw her mother's condition as terminal, and also communicated this Impression directly to Dr. Strickland as well. ? Donnell rCuz MD, [facility] [place] [address] P: [phone] F: [phone] Malena Bray MD 02/10/2018 4:30 PM Signed Patient seen and examined. Continues to feel very SOB. Weak. Appetite not great. I had long conversation regarding potential need for dialysis. She is considering her options. Blood pressure 115/71, pulse (!) 56, temperature 36.3 ?C (97.3 ?F), temperature source Oral, resp. rate 20, height 172.7 cm (5' 8), weight 114.5 kg (252 lb 6.4 oz), SpO2 97 %. Intake/Output Summary (Last 24 hours) at 02/10/18 1625 Last data filed at 02/10/18 1338 Gross per 24 hour Intake 840 ml Output 600 ml Net 240 ml Gen: weak Resp: diminished BS with improved/less wheezing CVS: no rub Abd: soft Ext: trace to 1+ edema K 5.5, Cr 3.26 Hb 10.1 Urine Na < 10, Up/c 0.1 Vit D 15, PTH 198 Renal US no obstruction Impression: 1. ROMÁN on CKD 3 due to diuresis of right > left CHF -poor renal perfusion suggested by low urine Na -Cr has worsened with each diuretic attempt but she remains volume overloaded 2. Edema multifactorial from right sided CHF and gabapentin 3. Hyperkalemia due to #1 4. Underlying CKD [address] my partner Dr. Martin 5. Hyperuricemia ? Plan: 1. Hold diuretics 2. I discussed probable need for dialysis this admission - she is considering her options which I spoke with her at length. I will discuss again tomorrow AM and hope to come up with a plan going forwards. I have concerns that we won't be able to manage her volume status and azotemia - as per previous notes - It is very difficult to separate her SOB being a primary lung or cardiac/volume issue 3. Low K diet; no potassium supplementation 4. Added oral Vit D and recheck PTH/Vit D in 3 months 5. Decreased gabapentin to 200mg BID due to contribution to edema 6. Started allopurinol 100mg daily; recheck uric acid this week ? Judit Nolasco, PT 02/10/2018 4:38 PM Signed PHYSICAL THERAPY MISSED VISIT SERVICE DATE: 02/10/2018 SERVICE TIME: 1415 to 1425 ROOM: [place] [address] Attempted Evaluation. Patient not seen due to Declined (states just received med and is very drowsy). Pt initially agreeable to PT eval and treat -- began evaluation, patient noted to be very drowsy with difficulty staying awake. Patient unable to answer home environment without closing eyes throughout. SPT notified PT. PT spoke with pt, patient declining further PT evaluation/treatment. RN notified. Plan to re-attempt as patient is appropriate and schedule permits. SIGNATURE: Verito Boggs MARAH PATIENT NAME: Luz Baca DATE: February 10, 2018 TIME: 4:26 PM PAGER/CONTACT #: I reviewed and agree with the assessment as documented above. SIGNATURE: Judit Nolasco, PT DATE: February 10, 2018 TIME: 4:38 PM Previous Version Malena Bray MD 02/11/2018 9:37 AM Signed Patient seen and examined. She is still unsure about whether she wants to pursue dialysis. Pulmonary note reviewed. No fevers or chills. Still SOB. Blood pressure (!) 91/43, pulse 60, temperature 36.6 ?C (97.9 ?F), temperature source Axillary, resp. rate 22, height 172.7 cm (5' 8), weight 115 kg (253 lb 8.5 oz), SpO2 95 %. Intake/Output Summary (Last 24 hours) at 02/11/18 0934 Last data filed at 02/11/18 0100 Gross per 24 hour Intake 600 ml Output 301 ml Net 299 ml Gen: weak Resp: diminished BS with poor AE CVS: no rub Abd: soft Ext:1+ edema K 5.2, Cr 3.32 Hb 10.6 Urine Na < 10, Up/c 0.1 Vit D 15, PTH 198 Renal US no obstruction Impression: 1. ROMÁN on CKD 3 due to diuresis of right > left CHF -poor renal perfusion suggested by low urine Na -Cr has worsened with each diuretic attempt but she remains volume overloaded 2. Edema multifactorial from right sided CHF and gabapentin 3. Hyperkalemia due to #1 4. Underlying CKD 3 followed [address] my partner Dr. Martin 5. Hyperuricemia ? Plan: 1. One dose IV lasix today 2. She is considering her options for renal replacement therapy - will continue discussions over weekend. 3. Low K diet; no potassium supplementation 4. Added oral Vit D and recheck PTH/Vit D in 3 months 5. Decreased gabapentin to 200mg BID due to contribution to edema 6. Started allopurinol 100mg daily ? Russell Strickland MD 02/11/2018 12:59 PM Signed INTERNAL MEDICINE PROGRESS NOTE SERVICE DATE: 02/11/2018 SERVICE TIME: 1300 ADMITTING PHYSICIAN: Gloria Singer Subjective CHIEF COMPLAINT: sob Current Facility-Administered Medications: hydrocortisone 0.5 % cream TOPICAL BID ipratropium-albuterol 3 mL nebulizer solution (DUONEB) 3 mL INHALATION q 4 H PRN insulin lispro 12 Units injection (rapid acting) (HumaLOG) 12 Units SUBCUTANEOUS w MEALS insulin glargine 15 Units injection (long acting) (LANTUS) 15 Units SUBCUTANEOUS DAILY (8 AM) insulin glargine 33 Units injection (long acting) (LANTUS) 33 Units SUBCUTANEOUS AT BEDTIME LORazepam 1 mg injection (ATIVAN) 1 mg INTRAVENOUS q 6 H PRN insulin lispro injection (rapid acting) (HumaLOG) SUBCUTANEOUS AT BEDTIME amiodarone 200 mg tab(s) (PACERONE) 200 mg ORAL DAILY HYDROcodone 5 mg - acetaminophen 325 mg tablet (NORCO) 1 tablet ORAL q 6 H PRN melatonin 3 mg tab(s) 3 mg ORAL AT BEDTIME simvastatin 20 mg tab(s) (ZOCOR) 20 mg ORAL AT BEDTIME aluminum-magnesium hydroxide-simethicone 200-200-20 mg/5 mL 15 mL (MAALOX,MYLANTA,MAG-AL PLUS) 15 mL ORAL q 4 H PRN insulin lispro injection (rapid acting) (HumaLOG) SUBCUTANEOUS w MEALS carvedilol 3.125 mg tab(s) (COREG) 3.125 mg ORAL BID w MEALS cholecalciferol 1,000 Units tab(s) (VITAMIN D3) 1,000 Units ORAL DAILY allopurinol 100 mg tab(s) (ZYLOPRIM) 100 mg ORAL DAILY docusate sodium 100 mg cap(s) (COLACE) 100 mg ORAL BID polyethylene glycol 3350 17 g packet (MIRALAX, GLYCOLAX) 17 g ORAL DAILY bisacodyl 10 mg suppository (DULCOLAX) 10 mg RECTAL DAILY PRN sodium chloride 0.65 % 2 Parker (AYR, OCEAN) 2 Parker EACH NOSTRIL PRN apixaban 2.5 mg tab(s) (ELIQUIS) 2.5 mg ORAL BID gabapentin 200 mg cap(s) (NEURONTIN) 200 mg ORAL BID ondansetron orally disintegrating 4 mg tab(s) (ZOFRAN ODT) 4 mg ORAL q 6 H PRN acetaminophen 650 mg tab(s) (TYLENOL) 650 mg ORAL q [address] 40 mg tab(s) (PROTONIX) 40 mg ORAL BID bacitracin 1 application topical ointment 1 application TOPICAL BID isosorbide mononitrate ER 60 mg tab(s) (IMDUR) 60 mg ORAL DAILY 0.9% NaCl 3-5 mL 3-5 mL INTRAVENOUS q 12 H dextrose 40 % 15 g 15 g ORAL PRN Or glucagon 1 mg injection (GLUCAGEN) 1 mg INTRAMUSCULAR PRN Or dextrose 50% in water 25 mL syringe 12.5 g INTRAVENOUS PRN miconazole 2 % 1 application topical powder (LOTRIMIN AF, DESENEX) 1 application TOPICAL BID INTERVAL HISTORY OF PRESENT ILLNESS: No f/c, no headaches or dizziness, no cp or palps, no cough Is sob, no n/v/d Objective PHYSICAL EXAM: Patient Vitals for the past 24 hrs: BP Temp Temp src Pulse Resp SpO2 Weight 02/11/18 1201 110/55 36.3 ?C (97.4 ?F) Oral (!) 51 22 97 % - 02/11/18 0809 (!) 91/43 36.3 ?C (97.4 ?F) Oral 60 22 95 % - 02/11/18 0600 - - - - - - 115 kg (253 lb 8.5 oz) 02/11/18 0337 105/67 36.6 ?C (97.9 ?F) Axillary 63 18 98 % - 02/11/18 0224 - - - - 16 - - 02/10/18 2349 (!) 99/49 36.3 ?C (97.3 ?F) Axillary (!) 55 16 97 % - 02/10/18 2149 - - - 60 18 98 % - 02/10/18 2134 (!) 101/49 - - - - - - 02/10/18 2042 (!) 83/48 36.5 ?C (97.7 ?F) Axillary 61 18 97 % - 02/10/18 1550 115/71 36.3 ?C (97.3 ?F) Oral (!) 56 20 97 % - 02/10/18 1338 - - - - 18 - - 02/10/18 1326 - - - 77 18 97 % - Body mass index is 38.55 kg/(m2). GENERAL: Alert, no distress, cooperative SKIN: Skin color, texture, turgor normal. No rashes or lesions. OROPHARYNX: Lips, mucosa, and tongue are normal.Teeth and gums, normal. Oropharynx normal. NECK: No carotid bruits LUNGS: Lungs clear to auscultation. Good diaphragmatic excursion. CARDIAC: Normal S1 and S2; no rubs, murmurs, or gallops ABDOMEN: Abdomen soft, non-tender, BS normal, No masses or organomegaly EXTREMITIES: + 2 edema DATA: Diagnostic tests reviewed for today's visit: Most recent labs and imaging results. Assessment/Plan Principal Problem: Chest pain in adult POA: Yes Assessment AND Plan: trops have been stable and likely elevated due to ckd. Nl stress test 08/03 Current cp doesn't sound cardiac in nature and pt reports some chest pain ever since her defibrillator was moved. ? If pain more neuropathic or muscular. She is already on neurontin and reports side effects to lyrica Active Problems: Chronic combined systolic and diastolic CHF (congestive heart failure) (HCC) POA: Yes Assessment AND Plan: bnp had increased while admitted from 1300 to 2941 despite attempted diuresis. Cr has continued to rise with attempted diuresis. One dose iv lasix today. Pt is agreeable to dialysis now. ECHO ef 50%, grade 3 diastolic dysfunction and pulm HTN Atrial fibrillation (HCC) POA: Yes Assessment AND Plan: cont eliquis and pacerone Uncontrolled type 2 diabetes mellitus with stage 3 chronic kidney disease, with long-term current use of insulin (HCC) POA: Yes Assessment AND Plan: a1c 12, cont insulin, ssi as needed Essential hypertension POA: Yes Assessment AND Plan: cont home meds ROMÁN: appreciate renal input. Baseline Cr 1.5, 3.32 today. Plan for dialysis Hyperkalemia: on low K diet Resolved Problems: * No resolved hospital problems. * SIGNATURE: Russell Strickland MD PATIENT NAME: Luz Baca DATE: February 11, 2018 TIME: 12:53 PM PAGER/CONTACT #: [phone] Dianna Melton RN, RN 02/11/2018 6:42 PM Signed Nursing Progress Note Patient Name: Luz Baca [place] [facility] [id number] Daily Note:02/11 0700-Bedside report given. 0834-Patient is complaining of pain, medication given 0835- Dr Strickland paged. To hold BP medications. 0839-Authorization to hold from Dr Strickland 0934- Recheck pain. Down to 12/25. Patient resting in bed 1100-Patient would like information on dialysis, provided information 1200- Assessment done patient is more depressed that previous days, Education on the benefits of dialysis. 1400-Patient complaining of 04/26pain. Advised available to take medication in 40min. 1448-Gave pain medication. Still reporting 1735-Pagged Dr Strickland, realized she was gone for the day and then paged the hospitalist for pain medication 1830-Ok one time dose of 50mg tramadol. This note was completed by: ALLYSON Godwin RN, RN 02/11/2018 3:37 PM Signed CARE MANAGEMENT PROGRESS NOTE SERVICE DATE: 02/11/2018 SERVICE TIME: 3:36 PM LOS: 14 days EMR reviewed. Spoke to bedside ALLYSON Hopkins. Admit Dx chest pain. On 3L n/c today.Chronic 2.5 LO2 at home POSSIBLE WEEKEND DC PER MD. High Risk PCC Remi Rehn . From home with dtr. [facility]ose [facility] NEED F2F, Dtr will transport. SIGNATURE: Vanessa Gonzalez RN PATIENT NAME: Luz Baca DATE: February 11, 2018 TIME: 3:36 PM PAGER/CONTACT #: [phone] Donnell Cruz MD 02/11/2018 5:26 PM Addendum [facility] [place], 02/11/2018: My partner Krishan Camp Rai, MD will be providing followup Pulmonary consultative coverage through Wednesday02/14/2018 AM, if needed. Donnell Cruz MD, [facility] Previous Version Vaibhav Mcmahan, PT 02/12/2018 11:43 AM Signed Physical Therapy Evaluation SERVICE DATE: 02/11/2018 SERVICE TIME: 1510 to 1540 ROOM: [place] [address]- Recommended Discharge Disposition: Home PT Recommended Discharge Disposition Comments: With current acute illness, patient demonstrates decreased functional mobility indicating benefit of continued skilled therapy services post acute stay. Anticipated Discharge Needs: Physical Assist at Home;Supervision at Home Physical Assist at Home for: Transfers;Ambulation;Cleaning;Laundry;Meals;Medication Management;Stairs;Self Care;Shopping;Transportation;Wheelchair Mobility Supervision at Home due to: (safety) Recommended Discharge Equipment: No equipment needs anticipated PT Recommendations to Nursing: Ambulate with device;To bathroom;In halls;Transfer to/from chair;OOB for Meals;Sit at edge of bed;With assist of 1 person Device: Immobilizer;Wheeled Walker (gait belt) PT 6 Clicks Score: 18 Precautions/Activity Restrictions: Cardiac;Fall Risk;Lines/Tubes/Drains Isolation Type: None ASSESSMENT : Patient presents with chest AND BLE pain, BLE edema AND skin changes, decreased overall strength, standing balance, functional mobility and activity tolerance. Requires skilled PT for progressive therapeutic exercise, balance AND functional mobility training, instruction in edema reduction. AND pain control AND breathing techniques, energy conservation, skin care AND progressive activity to prevent further deficits. Multiple co-morbidities influence patient's functional level.Patient with supportive AND able daughter. Patient lives in 1 story accessible home. Recommending continued [facility] PT to assist in improving patient's self care AND functional abiltiies. Patient Disposition at Start of Session: Family Present (Sitting EOB) Patient Disposition at End of Session: OOB in Chair;Call Bear in Reach (Family present) Tolerance Limited By Fatigue;Pain;Physiologic Response (shortness of breath) Physical Therapy Problem List: Education Deficit;Edema;Pain;Safety Deficits;Impaired Self Care;Decreased Activity Tolerance;Decreased Range Of Motion;Decreased Strength;Functional Mobility Impairment;Balance Impaired;Decreased Skin Integrity Patient /Caregiver Goals: Go Home Goals for Plan of Care: Able to perform HEP with: Supervision (x20 reps sitting/supine BLE ex for funct motion AND stgth) Transfer supine to/from sit with: Supervision (safe technique) Transfer sit to/from stand with: Supervision (w/walker, safe technique) Ambulate with: Supervision (safe technique) Distance: x150' for basic home AND self care mobility Device: Wheeled Walker Ambulate up and down steps with: Minimal Assistance (safe technique) Number of steps: 2 Device: Cane Goal: Patient demonstrates min shortness of breath with above basic mobility, with improved activity tolerance Progress Toward Goals: Progressing as expected Rehab Potential: Good (for stated goals) PLAN: Treatment Frequency (times per week): 4 Current admission Treatment Interventions: Education;Self Care / Home Management;Energy Conservation Training;Joint Mobility;Strengthening;Functional Mobility Training;Balance Training;Neuromuscular Re-education;Edema Management;Pain Management Plan of Care developed with: Patient;Family;Caregiver TREATMENT INTERVENTIONS: Therapy Diagnosis: Reduced mobility-other;Muscle Weakness (generalized);General symptoms and signs-other Interventions Provided: Evaluation;Therapeutic Exercise (19806);Therapeutic Activity (78428);Gait Training (91894) $ Evaluation-Low (67254) Billed Units: 1 unit Therapeutic Exercise (89369) Treatment Minutes: 8 1 unit Skilled Intervention(s): Instruction in therapeutic exercise - to perform intermitt BLE active ex for funct stgthening Verbal and tactile cuing provided for correct exercise performance, breathing w/ exercise Education in benefits of general ex AND mobility Performe 10 reps active B ankle pumps, R/L LAQ, light manually resisted B hip abd/add, 5 reps sitting hip flexion. All performed in limited range due to edema AND weakness. Therapeutic Activity (55121) Treatment Minutes: 6 0 units Skilled Intervention(s): Instructed patient in supine to and from sit pushing with upper extremities to sit up Educated patient on benefits of intermittent position change, BLE elevation for edema reduction Education with paced activity, intermittent breathing breaks for recovery Educated patient on role of PT during acute stay Educated patient on PT POC and rationale for discharge recommendation of continued C PT Instructed patient AND PCNA in need for progressive activity, recommending amb to bathroom w/nsg assist AND walker rather than use of commode chair Instructed patient in use of call light for all OOB and mobility activities for safety in hospital setting Gait Training (74488) Treatment Minutes: 10 1 unit Skilled Intervention(s): Instruction in sit to stand technique with proper hand placement and body positioning at edge of bed/chair, Instruction in stand to sit technique with LE's touching chair/bed and reaching back for surface Instruction in correction of gait deviations - upright posture, forward gaze, breathing w/exertion Instruction in use of equipment, cues for sequence and pattern - gait belt, wheeled walker Requires short coached breathing break following amb due to shortness of breath Notified RN of patient status, performance, PT discharge recommendation. Total Timed Code Treatment Minutes: 24 Total Treatment Time (minutes): 30 FUNCTIONAL G CODE: PT 6 Clicks Score: 18 (02/11/18 1510) Mobility: Walking and Moving Around Current Status (G8978): CK (02/11/18 1510) Mobility: Walking and Moving Around Goal Status (G8979): CJ (02/11/18 1510) Based on clinical assessment and the score on the 6 Clicks Functional Assessment Tool, the G code and corresponding severity modifiers are documented above. SUBJECTIVE: Current Hospital Course: Chart reviewed; ROMÁN on CKD3, with dialysis being considered. Chronic elevated troponin levels. Reason for Physical Therapy Consult : PT eval AND treat for safety assessment Relevant Past Medical History: Presented with chest pain. Admitted w/elevated cardiac enzymes, CHF PMHx: hypertrophic obstructive cardiomyopathy, CAD/mult stents AND CABG, CHF, CKD, COPD, pacemaker, DMII, sleep apnea Patient Report: PCNA completing vital sign check. Patient agreeable to PT session. Daughter present, observed session AND involved with all instruction AND education provided. Daughter confirms ability to continue to provide needed assist. Home Environment Patient Lives With: Family (daughter) Assistance Available: 24 Hour Entry To Home: Stairs;Without Rail Number Of Stairs Into Home: 2 Number Of Stairs To Bed/Bath: 1st floor set up Tub/Shower Type: Tub shower combination Laundry: Daughter completes Equipment Owned: Commode-Bedside;Grab Bars-Shower;Cane;Wheeled Walker;Hospital Bed;Home Oxygen Prior Functional Level: Required Assistance Assistance Required With: Transportation;Shopping;Self Care;Safety;Meals;Laundry;Cleaning Prior Functional Level Comments: Requires assist PRN for ADLs, dtr completes IADLs, ambulates with wheeled walker, on 2-3 L of Home O2 OBJECTIVE: Range Of Motion: (BLE grossly 50-75% of full range, 0 B dflex) Strength: (BLE grossly 3-/5 knees/ankles) Quality of Movement: Bradykinetic Coordination Deficits: Finger opposition;Finger/foot tapping Finger Opposition Impairment: Bilateral (slow, deliberate) Finger/Foot Tapping Impairment: Bilateral (slow, deliberate) Alert, awake, follows 3 step commands w/ min cues On 3 L/min O2 via NC (see flow sheet for initial vital signs) Min shortness of breath with llimited ambulation 4+ edema BLE B feet purple discoloration, L skin shiny CURRENT FUNCTIONAL STATUS: Cuing provided for functional mobility as noted in above interventions. Current Functional Mobility Assist Level Additional Information Rolling Supine to Sit Minimal Assistance (w/mod elevated HOB, use of bed rail) Partial performance Sit to Supine Supervision (w/mod elevation HOB, use of bed rail) Partial performance Scooting Supervision Sit to Stand Minimal Assistance (w/walker, wide base) Stand to Sit Minimal Assistance (w/walker, wide base) Bed to Chair Toilet/Commode Gait Contact Guard Assistance Gait Device: Wheeled Walker (gait belt) Gait Distance (feet): x50' Stairs Curb Step Car Transfer General Gait Deviations: Jane decreased;Step length decreased;Flexed trunk posture;Wide base of support;Shuffling Gait;Difficulty changing direction/turning;Non-functional gait speed (slow, deliberate pace, shortness of breath) Balance: Static Sitting;Dynamic Sitting;Static Standing;Dynamic Standing Static Sitting Balance: Independent Dynamic Sitting Balance: Supervision Static Standing Balance: Stand By Assistance (w/walker, wide base) Dynamic Standing Balance: Minimal Assistance (w/walker, wide base) Please see discipline specific clinical documentation flowsheet for complete details for this therapy evaluation/treatment. SIGNATURE: Vaibhav Mcmahan PT PATIENT NAME: Luz Baca DATE: February 11, 2018 TIME: 5:34 PM PAGER/CONTACT #: [phone] Michael Hogan DO 02/11/2018 8:18 PM Signed CONSULT: Vascular Surgery SERVICE SERVICE DATE: 02/11/2018 SERVICE TIME: 8:14 PM REASON FOR CONSULT: Tunneled catheter placement REQUESTING PHYSICIAN: Dr. Bray PRIMARY CARE PHYSICIAN: Jameson Kamara MD Subjective Ms. Baca is a 77 year old female who presents for chest pain. She has a history of HOCM, a fib on anticoagulation, pacemaker with a history of CKD 3. She was noted to have rising Cr. Asked by nephrology for tunneled catheter placement FUNCTIONAL STATUS: Independent PAST MEDICAL HISTORY Diagnosis Date - Arthritis - Atrial fibrillation (HCC) - CAD (coronary artery disease) stents x9, defibrillator, CABG. Seeing Dr. Cardona - Cardiac defibrillator in place - Cardiomegaly - Carotid artery disease (HCC) left - Chronic kidney disease (CKD) stage G3b/A2, moderately decreased glomerular filtration rate (GFR) between 30-44 mL/min/1.73 square meter and albuminuria creatinine ratio between 30-299 mg/g Dr. Martin - COPD (chronic obstructive pulmonary disease) ([facility]) Dr. Cruz - Depression - Diabetes ([facility]) - Diabetic neuropathy ([facility]) - Edema - GERD (gastroesophageal reflux disease) - Gout with hyperuricemia - HH (hiatus hernia) - HOCM (hypertrophic obstructive cardiomyopathy) ([facility]) S/P Septal Myectomy in 2003. Now with LVEF 50% and mod/severe pulm HTN. - HTN (hypertension) - Hyperlipidemia - Morbid obesity with BMI of 40.0-44.9, adult ([facility]) - Sleep apnea 2011 not on CPAP, unable to tolerate mask 02/2017 - SVT (supraventricular tachycardia) ([facility]) NSVT and questionable VT in 2003 post op PAST SURGICAL HISTORY Procedure Laterality Date - CHOLECYSTECTOMY HX - HEART SURGERY HX 07/18/2004 Septal myectomy and CABG x2 (DEBORAH-LAD, SVG-PDA). - HYSTERECTOMY HX - IANDD PERIANAL ABSCESS - PAST SURGICAL HISTORY OF left breast nodule removed - PAST SURGICAL HISTORY OF skin lesions removed FAMILY HISTORY Problem Relation Age of Onset - Hypertension Mother living at age 93, HTN - Heart Failure Mother [place] - Cancer Father age 71, lung cancer Social History Substance Use Topics - Smoking status: Former Smoker Packs/day: 2.50 Years: 43.00 Types: Cigarettes Start date: 1961 Quit date: 07/07/2004 - Smokeless tobacco: Never Used - Alcohol use No Prescriptions Prior to Admission: furosemide (LASIX) 40 mg tablet Take 80 mg by mouth twice daily. Disp: Rfl: 01/27/2018 at 0800 gabapentin (NEURONTIN) 300 mg capsule Take 600 mg by mouth twice daily. Disp: Rfl: 01/27/2018 at 0800 insulin aspart U-100 (NOVOLOG FLEXPEN U-100 INSULIN) 100 unit/mL inpn Inject 12 Units subcutaneously three times daily with meals. Disp: Rfl: 01/27/2018 at Unknown time insulin glargine (LANTUS SOLOSTAR U-100 INSULIN) 100 unit/mL (3 mL) inpn Inject 50 Units subcutaneously every morning. Disp: Rfl: 01/27/2018 at 0800 insulin glargine (LANTUS SOLOSTAR U-100 INSULIN) 100 unit/mL (3 mL) inpn Inject 36 Units subcutaneously daily at bedtime. Disp: Rfl: 01/26/[address] (PROTONIX) 40 mg tablet Take 40 mg by mouth twice daily. Disp: Rfl: 01/27/2018 at 0800 potassium chloride (K-TAB) 10 mEq tablet Take 10 mEq by mouth daily with breakfast. Disp: Rfl: 01/27/2018 at 0800 bacitracin (ANTIBIOTIC, BACITRACIN ZINC,) ointment Apply 1 application to affected area twice daily. Disp: 1 Tube Rfl: 1 01/27/2018 at Unknown time nystatin (NYSTOP) powder Apply 1 application to affected area three times daily. Disp: 60 g Rfl: 2 Unknown at Unknown time isosorbide mononitrate ER (IMDUR) 60 mg 24 hr tablet Take 1 tablet by mouth once daily. Disp: 30 tablet Rfl: 5 01/27/2018 at 0800 apixaban (ELIQUIS) 5 mg tab(s) Take 5 mg by mouth twice daily. Disp: Rfl: 01/27/2018 at 0800 simvastatin (ZOCOR) 40 mg tablet Take 40 mg by mouth every morning. Disp: Rfl: 01/27/2018 at 0800 spironolactone (ALDACTONE) 25 mg tablet Take 1 tablet by mouth once daily. Disp: Rfl: 01/27/2018 at 0800 ipratropium-albuterol (DUONEB) 0.5 mg-3 mg(2.5 mg base)/3 mL nebu Inhale 3 mL as instructed every 4 hours as needed. Disp: 180 Vial Rfl: 3 Unknown at Unknown time guaiFENesin-dextromethorphan (ROBITUSSIN DM) 100-10 mg/5 mL syrup Take 5-10 mL by mouth every 6 hours as needed for Cough. Disp: 118 mL Rfl: 0 Unknown at Unknown time nitroglycerin sublingual (NITROQUICK) 0.4 mg SL tablet Dissolve 1 tablet under the tongue every 5 minutes as needed. Disp: 1 Bottle of 25 Rfl: 0 Unknown at Unknown time OXYGEN, HOME THERAPY, Inhale 2.5 L/min as instructed continuous. 3 L/min when leaves home. Disp: Rfl: Unknown at Unknown time gabapentin (NEURONTIN) 300 mg capsule Take 2 capsules by mouth three times daily for 30 days. (Patient taking differently: Take 600 mg by mouth twice daily. ) Disp: Rfl: 12/09/2017 Current hospital medications: hydrocortisone 0.5 % cream TOPICAL BID ipratropium-albuterol 3 mL nebulizer solution (DUONEB) 3 mL INHALATION q 4 H PRN [START ON 02/12/2018] predniSONE (DELTASONE) tab(s) 30 mg 30 mg ORAL ONCE [START ON 02/13/2018] predniSONE 20 mg tab(s) (DELTASONE) 20 mg ORAL ONCE [START ON 02/14/2018] predniSONE 10 mg tab(s) (DELTASONE) 10 mg ORAL ONCE insulin lispro 12 Units injection (rapid acting) (HumaLOG) 12 Units SUBCUTANEOUS w MEALS insulin glargine 15 Units injection (long acting) (LANTUS) 15 Units SUBCUTANEOUS DAILY (8 AM) insulin glargine 33 Units injection (long acting) (LANTUS) 33 Units SUBCUTANEOUS AT BEDTIME LORazepam 1 mg injection (ATIVAN) 1 mg INTRAVENOUS q 6 H PRN insulin lispro injection (rapid acting) (HumaLOG) SUBCUTANEOUS AT BEDTIME amiodarone 200 mg tab(s) (PACERONE) 200 mg ORAL DAILY HYDROcodone 5 mg - acetaminophen 325 mg tablet (NORCO) 1 tablet ORAL q 6 H PRN melatonin 3 mg tab(s) 3 mg ORAL AT BEDTIME simvastatin 20 mg tab(s) (ZOCOR) 20 mg ORAL AT BEDTIME aluminum-magnesium hydroxide-simethicone 200-200-20 mg/5 mL 15 mL (MAALOX,MYLANTA,MAG-AL PLUS) 15 mL ORAL q 4 H PRN insulin lispro injection (rapid acting) (HumaLOG) SUBCUTANEOUS w MEALS carvedilol 3.125 mg tab(s) (COREG) 3.125 mg ORAL BID w MEALS cholecalciferol 1,000 Units tab(s) (VITAMIN D3) 1,000 Units ORAL DAILY allopurinol 100 mg tab(s) (ZYLOPRIM) 100 mg ORAL DAILY docusate sodium 100 mg cap(s) (COLACE) 100 mg ORAL BID polyethylene glycol 3350 17 g packet (MIRALAX, GLYCOLAX) 17 g ORAL DAILY bisacodyl 10 mg suppository (DULCOLAX) 10 mg RECTAL DAILY PRN sodium chloride 0.65 % 2 Parker (AYR, OCEAN) 2 Parker EACH NOSTRIL PRN apixaban 2.5 mg tab(s) (ELIQUIS) 2.5 mg ORAL BID gabapentin 200 mg cap(s) (NEURONTIN) 200 mg ORAL BID ondansetron orally disintegrating 4 mg tab(s) (ZOFRAN ODT) 4 mg ORAL q 6 H PRN acetaminophen 650 mg tab(s) (TYLENOL) 650 mg ORAL q [address] 40 mg tab(s) (PROTONIX) 40 mg ORAL BID bacitracin 1 application topical ointment 1 application TOPICAL BID isosorbide mononitrate ER 60 mg tab(s) (IMDUR) 60 mg ORAL DAILY 0.9% NaCl 3-5 mL 3-5 mL INTRAVENOUS q 12 H dextrose 40 % 15 g 15 g ORAL PRN glucagon 1 mg injection (GLUCAGEN) 1 mg INTRAMUSCULAR PRN dextrose 50% in water 25 mL syringe 12.5 g INTRAVENOUS PRN miconazole 2 % 1 application topical powder (LOTRIMIN AF, DESENEX) 1 application TOPICAL BID Allergies As of Date: 01/27/2018 Allergen Noted Reaction ASPIRIN 01/20/2018 Other: See Comments BACTRIM [SULFAMETHOXAZOLE-TRIMETH*05/17/2017 Other: See Comments LATEX 05/17/2017 Rash and Itching PENICILLINS 07/14/2004 Rash and Itching TETRACYCLINE 09/29/2010 Rash and GI Upset ATORVASTATIN 05/17/2017 Rash CODEINE 05/17/2017 Other: See Comments DILAUDID [HYDROMORPHONE (BULK)] 05/17/2017 Mental Status Change MEPERIDINE 07/14/2004 PENTAZOCINE 07/14/2004 PIOGLITAZONE 05/17/2017 Unknown PROPOXYPHENE 07/14/2004 Fully Assessed 01/27/2018 COMPLETE REVIEW OF SYSTEMS: GENERAL: No weight loss, malaise or fevers RESPIRATORY: Negative for cough, hemoptysis, wheezing, COPD, dyspnea or shortness of breath CARDIOVASCULAR: Negative for chest pain, leg swelling, hypertension, CHF or palpitations GI: No nausea, vomiting, or diarrhea : No history of dysuria, frequency or incontinence MUSCULOSKELETAL: Negative for joint pain or swelling, back pain or muscle pain SKIN: Negative for lesions, rash, and itching HEMATOLOGY/LYMPHOLOGY: Negative for prolonged bleeding, bruising easily or swollen nodes ENDOCRINE: Negative for cold or heat intolerance, polyuria, polydipsia and goiter Objective PHYSICAL EXAM: Physical Exam Performed: GENERAL: Alert, no distress, cooperative, Obese EXTREMITIES: Extremities normal, no deformities, edema, clubbing or skin discoloration. Good capillary refill., no upper extremity edema Chest wall- left sided pacemaker BP 141/63 Pulse 96 Temp (Src) 97.2 (Axillary) Resp 20 Ht 5' 8 (1.73m) Wt 253 lb 8.5 oz (115.0kg) SpO2 98% BMI 38.56 kg/(m2). DATA: Diagnostic tests reviewed for today's visit: Most recent labs and imaging results. CBC: Recent Labs 02/11/18512 WBC 7.01 RBC 3.56* HB 10.6* HCT 34.0* PLT 209 MCV 95.5 MCH 29.8 MPV 9.8 Coags: No results for input(s): INR, APTT in the last 24 hours. Invalid input(s): PT BMP: Recent Labs 02/11/18512 NA 131* K 5.2* CHLOR 93* CO2 21* BUN 109* CREAT 3.32* GLUC 146* Impression/Recommendations Principal Problem: Chronic kidney disease -Will be available for tunneled catheter placement on Wednesday. Hold eliquis on Wednesday SIGNATURE: Michael Hogan DO PATIENT NAME: Luz Baca DATE: February 11, 2018 TIME: 8:13 PM PAGER: [phone] Patience Newton, GENE 02/12/2018 5:59 AM Signed Pt refused cpap at this time. No distress noted DOWNTIME NOTE 02/12/2018 4:27 AM Signed Epic Scheduled Downtime: 02/11/2018 11:34:32 PM to 02/12/2018 4:17:42 AM Russell Strickland MD 02/12/2018 10:25 AM Signed INTERNAL MEDICINE PROGRESS NOTE SERVICE DATE: 02/12/2018 SERVICE TIME: 1015 ADMITTING PHYSICIAN: Gloria Singer Subjective CHIEF COMPLAINT: Chest pain Current Facility-Administered Medications: hydrocortisone 0.5 % cream TOPICAL BID ipratropium-albuterol 3 mL nebulizer solution (DUONEB) 3 mL INHALATION q 4 H PRN insulin lispro 12 Units injection (rapid acting) (HumaLOG) 12 Units SUBCUTANEOUS w MEALS insulin glargine 15 Units injection (long acting) (LANTUS) 15 Units SUBCUTANEOUS DAILY (8 AM) insulin glargine 33 Units injection (long acting) (LANTUS) 33 Units SUBCUTANEOUS AT BEDTIME LORazepam 1 mg injection (ATIVAN) 1 mg INTRAVENOUS q 6 H PRN insulin lispro injection (rapid acting) (HumaLOG) SUBCUTANEOUS AT BEDTIME amiodarone 200 mg tab(s) (PACERONE) 200 mg ORAL DAILY HYDROcodone 5 mg - acetaminophen 325 mg tablet (NORCO) 1 tablet ORAL q 6 H PRN melatonin 3 mg tab(s) 3 mg ORAL AT BEDTIME simvastatin 20 mg tab(s) (ZOCOR) 20 mg ORAL AT BEDTIME aluminum-magnesium hydroxide-simethicone 200-200-20 mg/5 mL 15 mL (MAALOX,MYLANTA,MAG-AL PLUS) 15 mL ORAL q 4 H PRN insulin lispro injection (rapid acting) (HumaLOG) SUBCUTANEOUS w MEALS carvedilol 3.125 mg tab(s) (COREG) 3.125 mg ORAL BID w MEALS cholecalciferol 1,000 Units tab(s) (VITAMIN D3) 1,000 Units ORAL DAILY allopurinol 100 mg tab(s) (ZYLOPRIM) 100 mg ORAL DAILY docusate sodium 100 mg cap(s) (COLACE) 100 mg ORAL BID polyethylene glycol 3350 17 g packet (MIRALAX, GLYCOLAX) 17 g ORAL DAILY bisacodyl 10 mg suppository (DULCOLAX) 10 mg RECTAL DAILY PRN sodium chloride 0.65 % 2 Parker (AYR, OCEAN) 2 Parker EACH NOSTRIL PRN apixaban 2.5 mg tab(s) (ELIQUIS) 2.5 mg ORAL BID gabapentin 200 mg cap(s) (NEURONTIN) 200 mg ORAL BID ondansetron orally disintegrating 4 mg tab(s) (ZOFRAN ODT) 4 mg ORAL q 6 H PRN acetaminophen 650 mg tab(s) (TYLENOL) 650 mg ORAL q [address] 40 mg tab(s) (PROTONIX) 40 mg ORAL BID bacitracin 1 application topical ointment 1 application TOPICAL BID isosorbide mononitrate ER 60 mg tab(s) (IMDUR) 60 mg ORAL DAILY 0.9% NaCl 3-5 mL 3-5 mL INTRAVENOUS q 12 H dextrose 40 % 15 g 15 g ORAL PRN Or glucagon 1 mg injection (GLUCAGEN) 1 mg INTRAMUSCULAR PRN Or dextrose 50% in water 25 mL syringe 12.5 g INTRAVENOUS PRN miconazole 2 % 1 application topical powder (LOTRIMIN AF, DESENEX) 1 application TOPICAL BID INTERVAL HISTORY OF PRESENT ILLNESS: No f/c, no headaches or dizziness, no palps, cp the same, sob the same, no cough, no n/v/d Objective PHYSICAL EXAM: Patient Vitals for the past 24 hrs: BP Temp Temp src Pulse Resp SpO2 Weight 02/12/18 0800 - - - 71 - - - 02/12/18 0732 125/78 36.3 ?C (97.3 ?F) Axillary (!) 41 20 97 % - 02/12/18 0400 - - - - - - 116.8 kg (257 lb 8 oz) 02/12/18 0351 133/70 36.6 ?C (97.9 ?F) Oral (!) 126 18 96 % - 02/12/18 0048 129/71 36.4 ?C (97.5 ?F) Oral 87 18 96 % - 02/11/18 1945 141/63 36.2 ?C (97.2 ?F) Axillary 96 20 98 % - 02/11/18 1730 - - - 75 - - - 02/11/18 1514 118/74 (!) 35.7 ?C (96.3 ?F) Axillary (!) 44 22 98 % - 02/11/18 1201 110/55 36.3 ?C (97.4 ?F) Oral (!) 51 22 97 % - Body mass index is 39.15 kg/m?. GENERAL: Alert, no distress, cooperative SKIN: Skin color, texture, turgor normal. No rashes or lesions. OROPHARYNX: Lips, mucosa, and tongue are normal.Teeth and gums, normal. Oropharynx normal. NECK: No carotid bruits LUNGS: Lungs clear to auscultation. Good diaphragmatic excursion. CARDIAC: Normal S1 and S2; no rubs, murmurs, or gallops ABDOMEN: Abdomen soft, non-tender, BS normal, No masses or organomegaly EXTREMITIES: Extremities normal, no deformities, edema, clubbing or skin discoloration. Good capillary refill. DATA: Diagnostic tests reviewed for today's visit: Most recent labs and imaging results. Assessment/Plan Principal Problem (Resolved): Chest pain in adult POA: Yes Assessment AND Plan: trops stable and likely elevated due to ckd. Nl stress test 08/03. Current cp doesn't sound cardiac in nature and pt reports some chest pain ever since defib was moved. ? If pain more neuropathic or muscular. She is already on neurontin and reports side effects to lyrica Active Problems: Acute on Chronic combined systolic and diastolic CHF (congestive heart failure) (HCC) POA: Yes Assessment AND Plan: bnp has increased while admitted from 1300 to 2941 despite attempted diuresis. Cr has also risen with attempted diuresis. ECHO ef 50%, grade 3 diastolic dysfunction and pulm HTN. Pt is agreeable to dialysis to help with fluid management Atrial fibrillation (HCC) POA: Yes Assessment AND Plan: cont eliquis and pacerone CAD (coronary artery disease) POA: Yes Assessment AND Plan: hx cabg Uncontrolled type 2 diabetes mellitus with stage 3 chronic kidney disease, with long-term current use of insulin (HCC) POA: Yes Assessment AND Plan: a1c 12, cont insulin, ssi as needed Sleep apnea POA: Yes Assessment AND Plan: cont cpap ROMÁN: baseline Cr 1.5, now 3.4 with attempted diuresis, renal following. Pt agreeable to dialysis. Hyperkalemia: low K diet, one dose kayexalate today Medication and Non-Pharmacologic VTE Prophylaxis/Anticoagulants Anticoagulant AND Antiplatelet Medications Start Dose Route Frequency Ordered Stop 02/01/18 2100 apixaban 2.5 mg tab(s) (ELIQUIS) 2.5 mg ORAL 2 TIMES DAILY 02/01/18 1005 -- 01/27/182129 vte non-pharmacologic prophylaxis - none indicated 01/27/182129 vte current anticoag therapy VTE Prophylaxis: VTE prophylaxis appropriate SIGNATURE: Russell Strickland MD PATIENT NAME: Luz Baca DATE: February 12, 2018 TIME: 10:16 AM PAGER/CONTACT #: [phone] Dina Bowman MD, MD 02/12/2018 10:46 AM Signed Endocrinology Progress Note IMPRESSION: ? Type 2 diabetes mellitus, insulin-requiring - glycemic control good ? Hyponatremia - start fluid restriction PLAN: ? Continue current insulin dose regimen ? 1800 mL fluid restriction INTERVAL HISTORY: Still dyspneic with minimal exertion, awaiting dialysis catheter placement Current hospital medications: hydrocortisone 0.5 % cream TOPICAL BID ipratropium-albuterol 3 mL nebulizer solution (DUONEB) 3 mL INHALATION q 4 H PRN [START ON 02/13/2018] predniSONE 20 mg tab(s) (DELTASONE) 20 mg ORAL ONCE [START ON 02/14/2018] predniSONE 10 mg tab(s) (DELTASONE) 10 mg ORAL ONCE insulin lispro 12 Units injection (rapid acting) (HumaLOG) 12 Units SUBCUTANEOUS w MEALS insulin glargine 15 Units injection (long acting) (LANTUS) 15 Units SUBCUTANEOUS DAILY (8 AM) insulin glargine 33 Units injection (long acting) (LANTUS) 33 Units SUBCUTANEOUS AT BEDTIME LORazepam 1 mg injection (ATIVAN) 1 mg INTRAVENOUS q 6 H PRN insulin lispro injection (rapid acting) (HumaLOG) SUBCUTANEOUS AT BEDTIME amiodarone 200 mg tab(s) (PACERONE) 200 mg ORAL DAILY HYDROcodone 5 mg - acetaminophen 325 mg tablet (NORCO) 1 tablet ORAL q 6 H PRN melatonin 3 mg tab(s) 3 mg ORAL AT BEDTIME simvastatin 20 mg tab(s) (ZOCOR) 20 mg ORAL AT BEDTIME aluminum-magnesium hydroxide-simethicone 200-200-20 mg/5 mL 15 mL (MAALOX,MYLANTA,MAG-AL PLUS) 15 mL ORAL q 4 H PRN insulin lispro injection (rapid acting) (HumaLOG) SUBCUTANEOUS w MEALS carvedilol 3.125 mg tab(s) (COREG) 3.125 mg ORAL BID w MEALS cholecalciferol 1,000 Units tab(s) (VITAMIN D3) 1,000 Units ORAL DAILY allopurinol 100 mg tab(s) (ZYLOPRIM) 100 mg ORAL DAILY docusate sodium 100 mg cap(s) (COLACE) 100 mg ORAL BID polyethylene glycol 3350 17 g packet (MIRALAX, GLYCOLAX) 17 g ORAL DAILY bisacodyl 10 mg suppository (DULCOLAX) 10 mg RECTAL DAILY PRN sodium chloride 0.65 % 2 Parker (AYR, OCEAN) 2 Parker EACH NOSTRIL PRN apixaban 2.5 mg tab(s) (ELIQUIS) 2.5 mg ORAL BID gabapentin 200 mg cap(s) (NEURONTIN) 200 mg ORAL BID ondansetron orally disintegrating 4 mg tab(s) (ZOFRAN ODT) 4 mg ORAL q 6 H PRN acetaminophen 650 mg tab(s) (TYLENOL) 650 mg ORAL q [address] 40 mg tab(s) (PROTONIX) 40 mg ORAL BID bacitracin 1 application topical ointment 1 application TOPICAL BID isosorbide mononitrate ER 60 mg tab(s) (IMDUR) 60 mg ORAL DAILY 0.9% NaCl 3-5 mL 3-5 mL INTRAVENOUS q 12 H dextrose 40 % 15 g 15 g ORAL PRN glucagon 1 mg injection (GLUCAGEN) 1 mg INTRAMUSCULAR PRN dextrose 50% in water 25 mL syringe 12.5 g INTRAVENOUS PRN miconazole 2 % 1 application topical powder (LOTRIMIN AF, DESENEX) 1 application TOPICAL BID PHYSICAL EXAM:BP 125/78 Pulse 71 Temp 36.3 ?C (97.3 ?F) (Axillary) Resp 20 Ht 172.7 cm (5' 8) Wt 116.8 kg (257 lb 8 oz) SpO2 97% BMI 39.15 kg/m? General appearance: Tired-appearing, obese (BMI greater than 30) female, alert, in no acute distress, well-hydrated, well nourished. Skin: Skin color, texture, turgor normal, no suspicious rashes or lesions Head: normocephalic, no masses, lesions, tenderness or abnormalities Eyes: Anicteric sclera. Pupils are equally round. Extraocular movements are intact. Ears: not examined Nose/Sinuses: Nares normal. No drainage or sinus tenderness. Oropharynx: Lips, mucosa, and tongue normal, teeth and gums not examined. Neck: Supple, no adenopathy; no visible thyroid enlargement. Lungs: Breathing unlabored. Heart: RRR. No ectopy Abdomen: deferred LAB DATA: Fingerstick glucose readings reviewed. Results for LUZ BACA ( ) Ref. Range 02/12/2018 00:16 Sodium Latest Ref Range: 136 - 144 mmol/L 127 (L) Potassium Latest Ref Range: 3.7 - 5.1 mmol/L 5.6 (H) Chloride Latest Ref Range: 97 - 105 mmol/L 89 (L) CO2 Latest Ref Range: 22 - 30 mmol/L 23 BUN Latest Ref Range: 7 - 21 mg/dL 114 (H) Creatinine Latest Ref Range: 0.58 - 0.96 mg/dL 3.41 (H) Glucose Latest Ref Range: 74 - 99 mg/dL 125 (H) Protein, Total Latest Ref Range: 6.3 - 8.0 g/dL 6.9 Calcium Latest Ref Range: 8.5 - 10.2 mg/dL 8.4 (L) Magnesium Latest Ref Range: 1.7 - 2.3 mg/dL 2.8 (H) Albumin Latest Ref Range: 3.9 - 4.9 g/dL 3.6 (L) Bilirubin, Total Latest Ref Range: 0.2 - 1.3 mg/dL 0.3 Alk Phosphatase Latest Ref Range: 32 - 117 U/L 88 ALT Latest Ref Range: 7 - 38 U/L 17 AST Latest Ref Range: 13 - 35 U/L 15 Anion Gap Latest Ref Range: 9 - 18 mmol/L 15 eGFR-All Others Latest Units: . 13 Hematocrit Latest Ref Range: 36.0 - 46.0 % 35.1 (L) Dina Bowman MD [facility] Endocrinology and Metabolism [place] [facility] February 12, 2018 10:41 AM Malena Bray MD 02/12/2018 12:46 PM Signed Patient seen and examined. She is now agreeable to dialysis. Tentatively placed on schedule for February 15 for HD catheter. No fevers or chills. She is still SOB. Asking for goodson catheter. Given kayexalate this AM. Blood pressure 113/50, pulse 105, temperature 36.3 ?C (97.3 ?F), temperature source Axillary, resp. rate 22, height 172.7 cm (5' 8), weight 116.8 kg (257 lb 8 oz), SpO2 97 %. Intake/Output Summary (Last 24 hours) at 02/12/18 1244 Last data filed at 02/12/18 0700 Gross per 24 hour Intake 222 ml Output 975 ml Net -753 ml Gen: weak Resp: diminished BS with poor AE CVS: no rub Abd: soft Ext:1+ edema K 5.6, Cr 3.4, BUN 114 Hb 11.2 Urine Na < 10, Up/c 0.1 Vit D 15, PTH 198 Renal US no obstruction Impression: 1. ROMÁN on CKD 3 due to diuresis of right > left CHF -poor renal perfusion suggested by low urine Na -Cr has worsened with each diuretic attempt but she remains volume overloaded and with hyperkalemia 2. Edema multifactorial from right sided CHF and gabapentin 3. Hyperkalemia due to #1 4. Underlying CKD [address] my partner Dr. Martin 5. Hyperuricemia ? Plan: 1. Agree with extra lasix and kayexalate today 2. Plan for tunneled HD catheter on Wednesday with initiation of HD 3. Low K diet; no potassium supplementation 4. Added oral Vit D 5. Decreased gabapentin to 200mg BID due to contribution to edema 6. Started allopurinol 100mg daily 7. Outpatient dialysis placement at [facility] 3x/week under my service ? Catarina Jack, RN, RN 02/13/2018 4:41 AM Signed Nursing Progress Note Patient Name: Luz Baca Patient Location: [place] [id number] Daily Note: 0330: Patients goodson fell out, Dr. Hart notified and said it was okay to leave out This note was completed by: ALLYSON Reid Rai, MD 02/13/2018 2:39 PM Signed [facility]PATIENT CONSULT PROGRESS NOTE SERVICE DATE: 02/13/2018 ASSESSMENT: Acute on Chronic hypoxemic hypercarbic?respiratory failure; PFTs demonstrate restrictive pattern Obesity-hypoventilation syndrome MARLA Acute on chronic combined systolic and diastolic CHF ROMÁN on CKD Atrial FIbrillation s/p pacemaker Former Smoker RECOMMENDATIONS: Continue supplemental oxygen, targeting spO2 > 92% Continue cPAP at night Continue prednisone taper Noted plans for hemodialysis catheter placement on 02/14/2018 Noted plans for IHD per renal team Counseling done regarding importance of using CPAP as prescribed. Plan discussed in detail with patient, RN and primary attending. Patient verbalizes understanding and is in agreement with the current management plan. Total time spent in patient care includes but is not limited to patient/ family discussions, collaborative discussions with other healthcare providers, review of medical records, review of laboratory tests, radiology images/ results, microbiology and pathology data. SUBJECTIVE CHIEF COMPLAINT: SOB INTERVAL HPI:Luz Baca is a 77 year old female with a past medical history of HOCM s/p myectomy, chronic AF on eliquis, s/p pacemaker, CAD s/p multiple stents and CABG, CKD stage III, DMII, HTN, HLD, and chronic respiratory failure 2L O2 at home. Patient reports she is overall feels improved since her admission, states she is still SOB with ambulation. Patient reports she was nauseous last night and this AM. Deniesfevers, chills, night sweats, chest pain, cough abd pain or leg swelling. Hemodialysis catheter placement scheduled for tomorrow. MEDICATIONS: Current Facility-Administered Medications: furosemide 40 mg injection (LASIX) 40 mg INTRAVENOUS DAILY traMADol 50 mg tab(s) (ULTRAM) 50 mg ORAL q 12 H PRN HYDROcodone 5 mg - acetaminophen 325 mg tablet (NORCO) 1 tablet ORAL q 6 H PRN hydrocortisone 0.5 % cream TOPICAL BID ipratropium-albuterol 3 mL nebulizer solution (DUONEB) 3 mL INHALATION q 4 H PRN insulin lispro 12 Units injection (rapid acting) (HumaLOG) 12 Units SUBCUTANEOUS w MEALS insulin glargine 15 Units injection (long acting) (LANTUS) 15 Units SUBCUTANEOUS DAILY (8 AM) insulin glargine 33 Units injection (long acting) (LANTUS) 33 Units SUBCUTANEOUS AT BEDTIME LORazepam 1 mg injection (ATIVAN) 1 mg INTRAVENOUS q 6 H PRN insulin lispro injection (rapid acting) (HumaLOG) SUBCUTANEOUS AT BEDTIME amiodarone 200 mg tab(s) (PACERONE) 200 mg ORAL DAILY melatonin 3 mg tab(s) 3 mg ORAL AT BEDTIME simvastatin 20 mg tab(s) (ZOCOR) 20 mg ORAL AT BEDTIME aluminum-magnesium hydroxide-simethicone 200-200-20 mg/5 mL 15 mL (MAALOX,MYLANTA,MAG-AL PLUS) 15 mL ORAL q 4 H PRN insulin lispro injection (rapid acting) (HumaLOG) SUBCUTANEOUS w MEALS carvedilol 3.125 mg tab(s) (COREG) 3.125 mg ORAL BID w MEALS cholecalciferol 1,000 Units tab(s) (VITAMIN D3) 1,000 Units ORAL DAILY allopurinol 100 mg tab(s) (ZYLOPRIM) 100 mg ORAL DAILY docusate sodium 100 mg cap(s) (COLACE) 100 mg ORAL BID polyethylene glycol 3350 17 g packet (MIRALAX, GLYCOLAX) 17 g ORAL DAILY bisacodyl 10 mg suppository (DULCOLAX) 10 mg RECTAL DAILY PRN sodium chloride 0.65 % 2 Parker (AYR, OCEAN) 2 Parker EACH NOSTRIL PRN apixaban 2.5 mg tab(s) (ELIQUIS) 2.5 mg ORAL BID gabapentin 200 mg cap(s) (NEURONTIN) 200 mg ORAL BID ondansetron orally disintegrating 4 mg tab(s) (ZOFRAN ODT) 4 mg ORAL q 6 H PRN acetaminophen 650 mg tab(s) (TYLENOL) 650 mg ORAL q [address] mg tab(s) (PROTONIX) 40 mg ORAL BID bacitracin 1 application topical ointment 1 application TOPICAL BID isosorbide mononitrate ER 60 mg tab(s) (IMDUR) 60 mg ORAL DAILY 0.9% NaCl 3-5 mL 3-5 mL INTRAVENOUS q 12 H dextrose 40 % 15 g 15 g ORAL PRN Or glucagon 1 mg injection (GLUCAGEN) 1 mg INTRAMUSCULAR PRN Or dextrose 50% in water 25 mL syringe 12.5 g INTRAVENOUS PRN miconazole 2 % 1 application topical powder (LOTRIMIN AF, DESENEX) 1 application TOPICAL BID CURRENT ALLERGIES: ALLERGIES Allergen Reactions - Aspirin Other: See Comments Patient states that she bled out every orifice, sts not allowed to take it at all. Patient states she was bleeding out of nose and mouth after one dose. - Bactrim [Sulfametho* Other: See Comments My throat swells up. - Latex Rash, Itching Itching and welts. No wheezing or shortness of breath. - Penicillins Rash, Itching Tolerated ceftriaxone during 11/2017 admission and cefepime during 12/2017 admission - Tetracycline Rash, GI Upset Emesis and diarrhea. - Atorvastatin Rash - Codeine Other: See Comments Numbness - Dilaudid [Hydromorp* Mental Status Change - Meperidine - Pentazocine - Pioglitazone Unknown - Propoxyphene Patient Vitals for the past 24 hrs: BP Temp Temp src Pulse Resp SpO2 Weight 02/13/18 1203 - - - 77 - - - 02/13/18 1147 106/54 36.5 ?C (97.7 ?F) Oral (!) 42 18 98 % - 02/13/18 0924 - - - - - 100 % - 02/13/18 0728 105/56 36.4 ?C (97.6 ?F) Oral (!) 53 20 98 % - 02/13/18 0600 - - - - - - 115.8 kg (255 lb 6.4 oz) 02/13/18 0312 126/67 - Oral 60 16 100 % - 02/13/18 0028 126/59 36.3 ?C (97.3 ?F) Oral 87 20 97 % - 02/12/18 2001 112/66 36.4 ?C (97.5 ?F) Oral 73 20 100 % - 02/12/18 1800 - - - 76 - - - 02/12/18 1558 137/64 36.4 ?C (97.5 ?F) Oral (!) 45 20 97 % - Intake/Output Summary (Last 24 hours) at 02/13/18 1217 Last data filed at 02/13/18 0945 Gross per 24 hour Intake 360 ml Output 1300 ml Net -940 ml OBJECTIVE PHYSICAL EXAM: BP 106/54 Pulse 77[per tele[ Temp (Src) 97.7 (Oral) Resp 18 Ht 5' 8 (1.73m) Wt 255 lb 6.4 oz (115.8kg) SpO2 98% BMI 38.84 kg/(m2). General appearance: well appearing, alert, in no acute distress Nose/Sinuses: No visible rhinorherra Oropharynx: Lips, mucosa, and tongue moist Respiratory: lungs clear to auscultation, no wheezing or rhonchi Cardiovascular: Negative. RRR without murmur, gallop, or rubs. No ectopy Abdomen: Soft, non tender, non distended. Normal bowel sounds. Extremities: Normal pulses. No peripheral edema. DATA Diagnostic tests reviewed for today's visit, films/specimens were personally reviewed by me: Most recent labs and imaging results. CBC, Coags, BMP, Mg, Phos Recent Labs 02/13/18 0621 02/12/18 0016 02/11/18 0513 WBC 7.58 7.76 7.01 HB 11.4* 11.2* 10.6* HCT 36.6 35.1* 34.0* PLT 205 216 209 NA 135* 127* 131* K 5.1 5.6* 5.2* CHLOR 94* 89* 93* CO2 26 23 21* BUN 125* 114* 109* CREAT 3.30* 3.41* 3.32* GLUC 89 125* 146* CA 8.9 8.4* 8.5 MG -- 2.8* -- Liver Function, Amylase, AND Lipase Recent Labs 02/13/18 0602/12/18 0016 02/11/18 0513 TPROT 6.8 6.9 6.5 ALB 3.8* 3.6* 3.3* ALT 16 17 16 AST 14 15 25 ALKPHOS 82 88 83 TBILI 0.4 0.3 0.4 CXR 02/07/2018 IMPRESSION: Lines, tubes, and devices: ?Pacemaker wire in the right ventricle Lungs and pleura: ?Mild vascular prominence and indistinctness may indicate mild congestion. No obvious pleural effusions. Left base streaky densities probably subsegmental atelectasis and is not significantly changed. Cardiomediastinal silhouette: ?Moderately enlarged, stable SIGNATURE: Clay Fields PA-C PATIENT NAME: Luz Baca DATE: February 13, 2018 TIME: 12:17 PM PAGER/CONTACT #: [phone] I have personally interviewed and examined the patient. I have personally verified elements of the exam listed above. Interval changes or irregualrities are as noted. I have personally and independently reviewed CXR images and PFT tracings and results (see data section). I have personally reviewed the problem list above and concur. Changes, if any, are noted. I have personally reviewed the plan list above and concur. Changes, if any, are noted. Krishan Irwin Rai, MD, [facility] Staff, Pulmonary and Critical Care Medicine [facility] Respiratory [place] Pager #[phone] Previous Version Malena Bray MD 02/13/2018 2:43 PM Signed Patient seen and examined. Goodson catheter fell out yesterday. She feels better with IV lasix. Good UOP. No fevers or chills. Blood pressure 106/54, pulse 77, temperature 36.5 ?C (97.7 ?F), temperature source Oral, resp. rate 18, height 172.7 cm (5' 8), weight 115.8 kg (255 lb 6.4 oz), SpO2 98 %. Intake/Output Summary (Last 24 hours) at 02/13/18 1441 Last data filed at 02/13/18 1400 Gross per 24 hour Intake 360 ml Output 1700 ml Net -1340 ml Gen: weak Resp: diminished BS with poor AE CVS: no rub Abd: soft Ext:1+ edema K 5.1, Na 135, Cr 3.3 Hb 11.4 Urine Na < 10, Up/c 0.1 Vit D 15, PTH 198 Renal US no obstruction Impression: 1. ROMÁN on CKD 3 due to diuresis of right > left CHF -poor renal perfusion suggested by low urine Na -Cr has worsened with each diuretic attempt but she remains volume overloaded and with hyperkalemia -Cr stable today 2. Edema multifactorial from right sided CHF and gabapentin 3. Hyperkalemia due to #1 4. Underlying CKD 3 followed [address] my partner Dr. Martin 5. Hyperuricemia 6. Hyponatremia due to #1 and inability to excrete free water - improved ? Plan: 1. Lasix 40mg IV BID 2. Plan for tunneled HD catheter on Wednesday with initiation of HD unless unexpected improvement in renal function by then 3. Low K diet; no potassium supplementation 4. Added oral Vit D 5. Decreased gabapentin to 200mg BID due to contribution to edema 6. Started allopurinol 100mg daily 7. Outpatient dialysis placement at [facility] 3x/week under my service on discharge ? Russell Strickland MD 02/13/2018 3:40 PM Signed INTERNAL MEDICINE PROGRESS NOTE SERVICE DATE: 02/13/2018 SERVICE TIME: 1535 ADMITTING PHYSICIAN: Gloria Singer Subjective CHIEF COMPLAINT: sob Current Facility-Administered Medications: furosemide 40 mg injection (LASIX) 40 mg INTRAVENOUS BID 9a/5p traMADol 50 mg tab(s) (ULTRAM) 50 mg ORAL q 12 H PRN HYDROcodone 5 mg - acetaminophen 325 mg tablet (NORCO) 1 tablet ORAL q 6 H PRN hydrocortisone 0.5 % cream TOPICAL BID ipratropium-albuterol 3 mL nebulizer solution (DUONEB) 3 mL INHALATION q 4 H PRN insulin lispro 12 Units injection (rapid acting) (HumaLOG) 12 Units SUBCUTANEOUS w MEALS insulin glargine 15 Units injection (long acting) (LANTUS) 15 Units SUBCUTANEOUS DAILY (8 AM) insulin glargine 33 Units injection (long acting) (LANTUS) 33 Units SUBCUTANEOUS AT BEDTIME LORazepam 1 mg injection (ATIVAN) 1 mg INTRAVENOUS q 6 H PRN insulin lispro injection (rapid acting) (HumaLOG) SUBCUTANEOUS AT BEDTIME amiodarone 200 mg tab(s) (PACERONE) 200 mg ORAL DAILY melatonin 3 mg tab(s) 3 mg ORAL AT BEDTIME simvastatin 20 mg tab(s) (ZOCOR) 20 mg ORAL AT BEDTIME aluminum-magnesium hydroxide-simethicone 200-200-20 mg/5 mL 15 mL (MAALOX,MYLANTA,MAG-AL PLUS) 15 mL ORAL q 4 H PRN insulin lispro injection (rapid acting) (HumaLOG) SUBCUTANEOUS w MEALS carvedilol 3.125 mg tab(s) (COREG) 3.125 mg ORAL BID w MEALS cholecalciferol 1,000 Units tab(s) (VITAMIN D3) 1,000 Units ORAL DAILY allopurinol 100 mg tab(s) (ZYLOPRIM) 100 mg ORAL DAILY docusate sodium 100 mg cap(s) (COLACE) 100 mg ORAL BID polyethylene glycol 3350 17 g packet (MIRALAX, GLYCOLAX) 17 g ORAL DAILY bisacodyl 10 mg suppository (DULCOLAX) 10 mg RECTAL DAILY PRN sodium chloride 0.65 % 2 Parker (AYR, OCEAN) 2 Parker EACH NOSTRIL PRN gabapentin 200 mg cap(s) (NEURONTIN) 200 mg ORAL BID ondansetron orally disintegrating 4 mg tab(s) (ZOFRAN ODT) 4 mg ORAL q 6 H PRN acetaminophen 650 mg tab(s) (TYLENOL) 650 mg ORAL q [address] 40 mg tab(s) (PROTONIX) 40 mg ORAL BID bacitracin 1 application topical ointment 1 application TOPICAL BID isosorbide mononitrate ER 60 mg tab(s) (IMDUR) 60 mg ORAL DAILY 0.9% NaCl 3-5 mL 3-5 mL INTRAVENOUS q 12 H dextrose 40 % 15 g 15 g ORAL PRN Or glucagon 1 mg injection (GLUCAGEN) 1 mg INTRAMUSCULAR PRN Or dextrose 50% in water 25 mL syringe 12.5 g INTRAVENOUS PRN miconazole 2 % 1 application topical powder (LOTRIMIN AF, DESENEX) 1 application TOPICAL BID INTERVAL HISTORY OF PRESENT ILLNESS: No f/c, no headaches or dizziness, no cp or palps, no cough Still very sob, no n/v/d Objective PHYSICAL EXAM: Patient Vitals for the past 24 hrs: BP Temp Temp src Pulse Resp SpO2 Weight 02/13/18 1203 - - - 77 - - - 02/13/18 1147 106/54 36.5 ?C (97.7 ?F) Oral (!) 42 18 98 % - 02/13/18 0924 - - - - - 100 % - 02/13/18 0728 105/56 36.4 ?C (97.6 ?F) Oral (!) 53 20 98 % - 02/13/18 0600 - - - - - - 115.8 kg (255 lb 6.4 oz) 02/13/18 0312 126/67 - Oral 60 16 100 % - 02/13/18 0028 126/59 36.3 ?C (97.3 ?F) Oral 87 20 97 % - 02/12/18 2001 112/66 36.4 ?C (97.5 ?F) Oral 73 20 100 % - 02/12/18 1800 - - - 76 - - - 02/12/18 1558 137/64 36.4 ?C (97.5 ?F) Oral (!) 45 20 97 % - Body mass index is 38.83 kg/m?. GENERAL: Alert, no distress, cooperative SKIN: Skin color, texture, turgor normal. No rashes or lesions. OROPHARYNX: Lips, mucosa, and tongue are normal.Teeth and gums, normal. Oropharynx normal. NECK: No carotid bruits LUNGS: Lungs clear to auscultation. Good diaphragmatic excursion. CARDIAC: Normal S1 and S2; no rubs, murmurs, or gallops ABDOMEN: Abdomen soft, non-tender, BS normal, No masses or organomegaly EXTREMITIES: Extremities normal, no deformities, edema, clubbing or skin discoloration. Good capillary refill. DATA: Diagnostic tests reviewed for today's visit: Most recent labs and imaging results. Assessment/Plan Principal Problem (Resolved): Chest pain in adult POA: Yes Assessment AND Plan: troponins mildly elevated due to ckd but stable and pain doesn't appear cardiac in nature. Pt reports pain has been present since defib was moved Appears neuropathic or musculoskeletal in nature, pt already on neurontin and reports side effects to lyrica Nl stress test 08/03 Active Problems: Chronic combined systolic and diastolic CHF (congestive heart failure) (HCC) POA: Yes Assessment AND Plan: BNP increased from 1300 to 2941 this admit despite attempted diuresis. 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 Plan for tunneled cath on and then start HD Medication and Non-Pharmacologic VTE Prophylaxis/Anticoagulants 01/27/182129 vte non-pharmacologic prophylaxis - none indicated 01/27/182129 vte current anticoag therapy VTE Prophylaxis: VTE prophylaxis appropriate SIGNATURE: Russell Strickland MD PATIENT NAME: Luz Baca DATE: February 13, 2018 TIME: 3:33 PM PAGER/CONTACT #: [phone] Malena Bray MD 02/14/2018 7:33 AM Signed Patient seen and examined. Made about 1L of urine with BID lasix. Feels about the same. Still with SOB. No fevers or chills. She signed consent for dialysis this AM - scheduled for tunneled catheter tomorrow with Dr. Hogan Blood pressure 127/59, pulse 75, temperature 36.4 ?C (97.5 ?F), temperature source Axillary, resp. rate 18, height 172.7 cm (5' 8), weight 116.1 kg (256 lb), SpO2 96 %. Intake/Output Summary (Last 24 hours) at 02/14/18 0730 Last data filed at 02/14/18 0120 Gross per 24 hour Intake 940 ml Output 1000 ml Net -60 ml Gen: weak Resp: diminished BS with poor AE CVS: no rub Abd: soft Ext:1+ edema K 5.2, Cr 3.3 Hb 11.3 Urine Na < 10, Up/c 0.1 Vit D 15, PTH 198 Renal US no obstruction Impression: 1. ROMÁN on CKD 3 due to diuresis of right > left CHF -poor renal perfusion suggested by low urine Na -Cr has worsened with each diuretic attempt but she remains volume overloaded and with hyperkalemia -Cr stable today but overall still feeling poorly 2. Edema multifactorial from right sided CHF and gabapentin 3. Hyperkalemia due to #1 4. Underlying CKD [address] my partner Dr[address] Martin 5. Hyperuricemia now on allopurinol ? Plan: 1. Lasix 40mg IV BID for now 2. Plan for tunneled HD catheter tomorrow with initiation of HD -2hr HD tomorrow with 0.5L of UF planned -consent signed for HD and in chart -check Hep profile 3. Low K diet; no potassium supplementation 4. Added oral Vit D 5. Decreased gabapentin to 200mg BID due to contribution to edema 6. Started allopurinol 100mg daily 7. Outpatient dialysis placement at [facility] 3x/week under my service on discharge ? Vanessa Gonzalez RN, RN 02/14/2018 8:46 AM Signed CARE MANAGEMENT PROGRESS NOTE SERVICE DATE: 02/14/2018 SERVICE TIME: 8:42 AM LOS: 17 days EMR reviewed. Spoke to Raymond ext [phone] about this patient. Need Hep Panel Lab, Need Tunnel Cath, Need First Treatment. Referral sent as Ordered [facility] , with plan for a Wednesday dc . SIGNATURE: Vanessa Gonzalez RN PATIENT NAME: Luz Baca DATE: February 14, 2018 TIME: 8:42 AM PAGER/CONTACT #: [phone] Krishan Irwin Rai, MD 02/14/2018 4:44 PM Signed [facility] IN-PATIENT CONSULT PROGRESS NOTE SERVICE DATE: 02/14/2018 ASSESSMENT: Acute on Chronic hypoxemic hypercarbic?respiratory failure 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 Noted plans for hemodialysis catheter placement Noted plans for IHD per renal team DVT prophylaxis Plan discussed in detail with patient and RN. Patient verbalizes understanding and is in agreement with the current management plan. Total time spent in patient care includes but is not limited to patient/ family discussions, collaborative discussions with other healthcare providers, review of medical records, review of laboratory tests, radiology images/ results, microbiology and pathology data. Krishan Irwin Rai, MD Staff, Respiratory [facility] Pager #[phone] SUBJECTIVE CHIEF COMPLAINT: Dyspnea INTERVAL HPI:Luz Baca is a 77 year old female status since previous days visit is feeling the same. She did not use her CPAP overnight. Waiting for placement of hemodialysis catheter. No fevers, chills, night sweats, chest pain, SOB, abd pain or leg swelling MEDICATIONS: Current Facility-Administered Medications: furosemide 40 mg injection (LASIX) 40 mg INTRAVENOUS BID 9a/5p traMADol 50 mg tab(s) (ULTRAM) 50 mg ORAL q 12 H PRN HYDROcodone 5 mg - acetaminophen 325 mg tablet (NORCO) 1 tablet ORAL q 6 H PRN hydrocortisone 0.5 % cream TOPICAL BID ipratropium-albuterol 3 mL nebulizer solution (DUONEB) 3 mL INHALATION q 4 H PRN insulin lispro 12 Units injection (rapid acting) (HumaLOG) 12 Units SUBCUTANEOUS w MEALS insulin glargine 15 Units injection (long acting) (LANTUS) 15 Units SUBCUTANEOUS DAILY (8 AM) insulin glargine 33 Units injection (long acting) (LANTUS) 33 Units SUBCUTANEOUS AT BEDTIME LORazepam 1 mg injection (ATIVAN) 1 mg INTRAVENOUS q 6 H PRN insulin lispro injection (rapid acting) (HumaLOG) SUBCUTANEOUS AT BEDTIME amiodarone 200 mg tab(s) (PACERONE) 200 mg ORAL DAILY melatonin 3 mg tab(s) 3 mg ORAL AT BEDTIME simvastatin 20 mg tab(s) (ZOCOR) 20 mg ORAL AT BEDTIME aluminum-magnesium hydroxide-simethicone 200-200-20 mg/5 mL 15 mL (MAALOX,MYLANTA,MAG-AL PLUS) 15 mL ORAL q 4 H PRN insulin lispro injection (rapid acting) (HumaLOG) SUBCUTANEOUS w MEALS carvedilol 3.125 mg tab(s) (COREG) 3.125 mg ORAL BID w MEALS cholecalciferol 1,000 Units tab(s) (VITAMIN D3) 1,000 Units ORAL DAILY allopurinol 100 mg tab(s) (ZYLOPRIM) 100 mg ORAL DAILY docusate sodium 100 mg cap(s) (COLACE) 100 mg ORAL BID polyethylene glycol 3350 17 g packet (MIRALAX, GLYCOLAX) 17 g ORAL DAILY bisacodyl 10 mg suppository (DULCOLAX) 10 mg RECTAL DAILY PRN sodium chloride 0.65 % 2 Parker (AYR, OCEAN) 2 Parker EACH NOSTRIL PRN gabapentin 200 mg cap(s) (NEURONTIN) 200 mg ORAL BID ondansetron orally disintegrating 4 mg tab(s) (ZOFRAN ODT) 4 mg ORAL q 6 H PRN acetaminophen 650 mg tab(s) (TYLENOL) 650 mg ORAL q [address] 40 mg tab(s) (PROTONIX) 40 mg ORAL BID bacitracin 1 application topical ointment 1 application TOPICAL BID isosorbide mononitrate ER 60 mg tab(s) (IMDUR) 60 mg ORAL DAILY 0.9% NaCl 3-5 mL 3-5 mL INTRAVENOUS q 12 H dextrose 40 % 15 g 15 g ORAL PRN Or glucagon 1 mg injection (GLUCAGEN) 1 mg INTRAMUSCULAR PRN Or dextrose 50% in water 25 mL syringe 12.5 g INTRAVENOUS PRN miconazole 2 % 1 application topical powder (LOTRIMIN AF, DESENEX) 1 application TOPICAL BID CURRENT ALLERGIES: ALLERGIES Allergen Reactions - Aspirin Other: See Comments Patient states that she bled out every orifice, sts not allowed to take it at all. Patient states she was bleeding out of nose and mouth after one dose. - Bactrim [Sulfametho* Other: See Comments My throat swells up. - Latex Rash, Itching Itching and welts. No wheezing or shortness of breath. - Penicillins Rash, Itching Tolerated ceftriaxone during 11/2017 admission and cefepime during 12/2017 admission - Tetracycline Rash, GI Upset Emesis and diarrhea. - Atorvastatin Rash - Codeine Other: See Comments Numbness - Dilaudid [Hydromorp* Mental Status Change - Meperidine - Pentazocine - Pioglitazone Unknown - Propoxyphene Patient Vitals for the past 24 hrs: BP Temp Temp src Pulse Resp SpO2 Weight 02/14/18 0800 - - - 81 18 - - 02/14/18 0758 118/55 36.3 ?C (97.4 ?F) - 74 16 95 % - 02/14/18 0431 - - - 75 - - 116.1 kg (256 lb) 02/14/18 0428 127/59 36.4 ?C (97.5 ?F) Axillary (!) 45 18 96 % - 02/13/18 2322 - - - 75 - - - 02/13/18 2320 114/51 36.5 ?C (97.7 ?F) Oral (!) 42 18 93 % - 02/13/18 2159 - - - 74 - - - 02/13/18 1940 136/71 36.3 ?C (97.3 ?F) Oral (!) 39 16 98 % - 02/13/18 1203 - - - 77 - - - 02/13/18 1147 106/54 36.5 ?C (97.7 ?F) Oral (!) 42 18 98 % - Intake/Output Summary (Last 24 hours) at 02/14/18 1005 Last data filed at 02/14/18 0758 Gross per 24 hour Intake 910 ml Output 800 ml Net 110 ml OBJECTIVE PHYSICAL EXAM: BP 118/55 Pulse 81 Temp (Src) 97.4 (Axillary) Resp 18 Ht 5' 8 (1.73m) Wt 256 lb (116.1kg) SpO2 95% BMI 38.93 kg/(m2). General appearance: Morbidly obese, well appearing, alert, in no acute distress Respiratory: lungs clear to auscultation, no wheezing or rhonchi Cardiovascular: RRR Abdomen: Soft, non tender, non distended. Extremities: Normal pulses. (++) peripheral edema. DATA Diagnostic tests reviewed for today's visit, films/specimens were personally reviewed by me: Most recent labs and imaging results. CBC, Coags, BMP, Mg, Phos Recent Labs 02/14/18 0507 02/13/18 0621 02/12/18 0016 WBC 6.82 7.58 7.76 HB 11.3* 11.4* 11.2* HCT 36.3 36.6 35.1* PLT 203 205 216 NA 137 135* 127* K 5.2* 5.1 5.6* CHLOR 96* 94* 89* CO2 27 26 23 BUN 128* 125* 114* CREAT 3.35* 3.30* 3.41* GLUC 103* 89 125* CA 8.8 8.9 8.4* MG -- -- 2.8* Liver Function, Amylase, AND Lipase Recent Labs 02/14/18 0507 02/13/18 0621 02/12/18 0016 TPROT 6.2* 6.8 6.9 ALB 3.8* 3.8* 3.6* ALT 16 16 17 AST 14 14 15 ALKPHOS 77 82 88 TBILI 0.4 0.4 0.3 Cardiac Enzymes ABGs SIGNATURE: Krishan Irwin Rai, MD PATIENT NAME: Luz Baca DATE: February 14, 2018 TIME: 10:05 AM PAGER/CONTACT #: [phone] Micha Nesbitt MD, 02/14/2018 3:22 PM Edited HOSPITAL MEDICINE PROGRESS NOTE NIGHT AND WEEKEND COVERAGE: Nights: Please contact pager [phone]. 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 Onset was 5:00 this morning. It is intermittent in nature described as sharp stabbing and fluttering. It is midsternal. It lasts 5 minutes before resolving. Consultants: Dr. Asa Nair Disposition: [facility] SUBJECTIVE Interval HPI:No chest pain or shortness of breath. The patient is okay for discharge once she can have outpatient dialysis. Current timeline is for discharge on February 18. OBJECTIVE Reviewed lines, drains, AND airways. Need to be continued . BP (!) 125/40 Pulse 79 Temp 36.3 ?C (97.4 ?F) (Oral) Resp 20 Ht 172.7 cm (5' 8) Wt 116.1 kg (256 lb) SpO2 99% BMI 38.92 kg/m? GENERAL: Alert, no distress, cooperative NECK: No Jugulovenous distention LUNGS: Clear without respiratory distress CARDIAC: RRR - probably paced with periods of A. fib without murmur, rub, or gallop ABDOMEN: Abdomen soft, non-tender, BS normal, No masses or organomegaly EXTREMITIES: 1+ edema No cords NEURO: Grossly normal cognition, motor function, and cranial nerves. DATA: Diagnostic tests reviewed for today's visit: Most recent labs Overview was reviewed. Pulse ox Most recent Xrays/CT [facility] Dr[facility] Helper Previous Version Megan Buck RD 02/14/2018 12:34 PM Signed NUTRITION THERAPY PROGRESS NOTE SERVICE DATE: 02/14/2018 SERVICE TIME: 1120 NUTRITION CARE PLAN Intervention: 1. Discontinue nutrition supplements-patient dislikes and limits her fluids at meals currently 2. Continue heart healthy 4gm, 2gm potassium and 1800 ml fluid restriction 3. Provide and encourage nutrient/caloric dense foods to help meet estimated needs. 4. Reviewed current labs and physician progress notes Will follow up again within 6 days or as consulted Monitor and Evaluation: Goal: Meet >75% of estimated needs Discharge Nutrition Recommendations: Diet: Continue heart healthy 4gm, 2gm potassium and 1800 ml fluid restriction Interval History: PO intake 75-100%. Not drinking supplements and limiting her fluids d/t current fluid restrictions. PO intake is currently adequate to meet estimated needs Admission Weight: 105.2 kg (232 lb) Current Weight: 116.1 kg (256 lb) Body mass index is 38.92 kg/m?. class 2 obesity Intake/Output 02/10/18 07 - 02/11/18 0659 02/11/18 07 - 02/12/18 0659 02/12/18 07 - 02/13/18 0659 02/13/18 07 - 02/14/18 0659 02/14/18 07 - 02/15/18 0659 Intake (ml) 840 342 120 940 210 Output (ml) 732 709 6128 1000 0 Net (ml) 239 -333 -1280 -60 210 MNT Billing Type: Re-assess/15 min 1 unit SIGNATURE: Megan Buck RD PATIENT NAME: Luz Baca DATE: February 14, 2018 TIME: 12:31 PM Micha Nesbitt MD, MD 02/14/2018 3:23 PM Signed SERVICE DATE: 02/14/2018 SERVICE TIME: 3:22 PM HOSPITAL MEDICINE PROGRESS NOTE NIGHT AND WEEKEND COVERAGE: Nights: Please contact pager [phone]. 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 Onset was 5:00 this morning. It is intermittent in nature described as sharp stabbing and fluttering. It is midsternal. It lasts 5 minutes before resolving. Consultants: Dr. sAa Nair Disposition: [facility] SUBJECTIVE Interval HPI:No chest pain or shortness of breath. The patient is okay for discharge once she can have outpatient dialysis. Current timeline is for discharge on February 18. OBJECTIVE Reviewed lines, drains, AND airways. Need to be continued . BP (!) 125/40 Pulse 79 Temp 36.3 ?C (97.4 ?F) (Oral) Resp 20 Ht 172.7 cm (5' 8) Wt 116.1 kg (256 lb) SpO2 99% BMI 38.92 kg/m? GENERAL: Alert, no distress, cooperative NECK: No Jugulovenous distention LUNGS: Clear without respiratory distress CARDIAC: RRR - probably paced with periods of A. fib without murmur, rub, or gallop ABDOMEN: Abdomen soft, non-tender, BS normal, No masses or organomegaly EXTREMITIES: 1+ edema No cords NEURO: Grossly normal cognition, motor function, and cranial nerves. DATA: Diagnostic tests reviewed for today's visit: Most recent labs Overview was reviewed. Pulse ox Most recent Xrays/CT [facility] Dr[facility] Hel[facility] CARE COORDINATION: No Patient Care Coordination Note on file. ASSESSMENT AND PLAN Assessment AND Plan, all Hosp Problems Problem List as of 02/14/2018 Noted - Resolved A Acute renal failure superimposed on stage 3 chronic kidney disease ([facility]) 02/12/2018 - Present B Chronic combined systolic and diastolic CHF (congestive heart failure) ([facility]) 12/10/2017 - Present C Atrial fibrillation ([facility]) 09/23/2010 - Present D Pacemaker Unknown - Present E CAD (coronary artery disease) Unknown - Present F COPD (chronic obstructive pulmonary disease) ([facility]) Unknown - Present H Uncontrolled type 2 diabetes mellitus with stage 3 chronic kidney disease, with long-term current use of insulin ([facility]) 09/23/2004 - Present I Sleep apnea Unknown - Present J Hyponatremia 01/20/2018 - Present K GERD (gastroesophageal reflux disease) Unknown - Present L Hypertension Unknown - Present M Obesity 2010 - Present Unprioritized Arthritis Unknown - Present Depression Unknown - Present Gout Unknown - Present Hyperlipidemia Unknown - Present Pulmonary hypertension 01/07/2018 - Present Medication and Non-Pharmacologic VTE Prophylaxis/Anticoagulants 01/27/182129 vte non-pharmacologic prophylaxis - none indicated 01/27/182129 vte current anticoag therapy VTE Prophylaxis: VTE prophylaxis appropriate Plan of care discussed with: Patient, Case Mangement and RN SIGNATURE: Micha Nesbitt MD PATIENT NAME: Luz Baca DATE: February 14, 2018 TIME: 3:22 PM PAGER/CONTACT #: Ana Luisa Rouse S/OT, Student 02/14/2018 4:34 PM Cosign Needed Occupational Therapy Treatment SERVICE DATE: 02/14/2018 SERVICE TIME: 1557 to 1608 ROOM: [place] [id number] Recommended Discharge Disposition: Home OT Recommended Discharge Disposition Comments: to improve overall strength, endurance, provide education on ECWS, and ensure safety with ADLs and ADL transfers Anticipated Discharge Needs: Physical Assist at Home;Supervision at Home Physical Assist at Home for: Transfers;Ambulation;Cleaning;Laundry;Meals;Medication Management;Stairs;Self Care;Shopping;Transportation;Wheelchair Mobility Supervision at Home due to: (safety) Recommended Discharge Equipment: Shower Chair OT Recommendations to Nursing: ADL?s in chair;To Bathroom for ADL?s /and or Toileting;OOB for meals;With assist of 1 person OT 6 Clicks Score: 20 Precautions/Activity Restrictions: Cardiac;Fall Risk;Lines/Tubes/Drains Isolation Type: None ASSESSMENT: Pt presents with decreased activity tolerance and functional mobility. Pt willing to participate in OT session this date. Pt requires SBA for bed mobility however reports feeling SOB while seated EOB. Vitals monitored throughout session to ensure safe progression during functional mobility. Pt participated in BUE exercises while seated EOB requiring minimal verbal cues for proper technique and minimal rest breaks due to fatigue. Daughter present throughout session and appears supportive. Pt would continue to benefit from home OT post acute stay to increase independence with ADL/IADL task and functional mobility. Patient Disposition at Start of Session: Supine in Bed Patient Disposition at End of Session: (seated EOB with PCNA, family present) Lines/tubes/drains: intact. O2, peripheral IV. RN, PCNA notified of patient status. Tolerance Limited By Fatigue Occupational Therapy Problem List: Impaired Self Care;Decreased Activity Tolerance;Safety Deficits;Pain;Functional Mobility Impairment Patient /Caregiver Goals: Go Home Goals for Plan of Care: Able to perform HEP with: Modified Independent Grooming with: Supervision Upper Body Dressing with: Set Up Chair Transfer with: Stand By Assistance Toilet Transfer with: Stand By Assistance Tolerate (minutes of functional activity): 10 Functional Activity with: Stand By Assistance Home Management Skills with: Stand By Assistance Demonstrate Competence With Education with: Verbal Cues Only Progress Toward Goals: Progressing slower than expected Due To: fatigue Rehab Potential: Good PLAN: Treatment Frequency (times per week): 3 Current admission Treatment Interventions: Education;Self Care / Home Management;Energy Conservation Training;Strengthening;Functional Mobility Training Plan of Care developed with: Patient TREATMENT INTERVENTIONS: Therapy Diagnosis: Decreased activities of daily living (ADL);Muscle Weakness (generalized);Unsteadiness on feet;General symptoms and signs- other;Signs and Symptoms Involving Cognitive Functions and Awareness Interventions Provided: Therapeutic Exercise (87115);Therapeutic Activity (74492) Therapeutic Exercise (77327) Treatment Minutes: 9 1 unit Skilled Intervention(s): Instructed, verbally cued pt in importance of participating in active upper extremity exercises alternating UE's focusing on shoulder ab/adduction, IR/ER, biceps/tripeps, shoulder flex/ext, elbow flex/ext x10 reps x 1 set (additional time required for pt to take rest breaks). Instructed, verbally cued pt in correct body positioning for optimal stretch. Instructed, verbally cued pt to maintain steady slow pace through exercises. All exercises were demonstrated by therapist for safe technique. Therapeutic Activity (01902) Treatment Minutes: 2 0 units Skilled Intervention(s): Instructed, verbally cued pt in supine to sit technique with proper use of UE's to sit up. Instructed, verbally cued pt in effective use of BUE's to scoot to EOB. Instructed, verbally cued pt in proper hand placement to maintain sitting balance during UE exercises. Total Timed Code Treatment Minutes: 11 Total Treatment Time (minutes): 11 FUNCTIONAL G CODE: OT 6 Clicks Score: 20 (02/14/18 1557) Self Care Current Status (G8987): CJ (02/10/18 1140) Self Care Goal Status (G8988): CJ (02/10/18 1140) Based on clinical assessment and the score on the 6 Clicks Functional Assessment Tool, the G code and corresponding severity modifiers are documented above. SUBJECTIVE: Current Hospital Course: Chart reviewed and no significant medical updates relevant to therapy were noted Reason for Occupational Therapy Consult: Pt presenting with chest pain; OT consult: Safety assessment Relevant Past Medical History: Afib, CAD, CKD, COPD, DM, depression, HOCM, HTN, HLD Patient Report: It hurts to lay on my back. Home Environment Patient Lives With: Family (daughter) Assistance Available: 24 Hour Entry To Home: Stairs;Without Rail Number Of Stairs Into Home: 2 Number Of Stairs To Bed/Bath: 1st floor set up Tub/Shower Type: Tub shower combination Laundry: Daughter completes Equipment Owned: Commode-Bedside;Grab Bars-Shower;Cane;Wheeled Walker;Hospital Bed;Home Oxygen Prior Functional Level: Required Assistance Assistance Required With: Transportation;Shopping;Self Care;Safety;Meals;Laundry;Cleaning Prior Functional Level Comments: Requires assist PRN for ADLs, dtr completes IADLs, ambulates with wheeled walker, on 2-3 L of Home O2 OBJECTIVE: Responsiveness: Alert;Awake Follows Commands: 3-step Commands;Cueing Needed Cueing to Follow Commands: Minimum Executive Function Deficits: Safety Awareness Safety Awareness Deficit: Minimal impairment Vision Deficits: Wears glasses Short Blessed Final Score: 11 CURRENT FUNCTIONAL STATUS: Current Activities of Daily Living Assist Level Feeding Set Up (per clinical judgment) Grooming Contact Guard Assistance (hand hygiene at sink) Not performed this date Bathing Upper Body Contact Guard Assistance Not performed this date Bathing Lower Body Contact Guard Assistance Not performed this date Dressing Upper Body Contact Guard Assistance Not performed this date Dressing Lower Body Supervision (slip on slippers) Not performed this date Toileting Functional Mobility Assist Level Rolling Supine to Sit Stand By Assistance (HOB flat, use of bedrails) Sit to Supine Scooting Stand By Assistance (to EOB) Sit to Stand Contact Guard Assistance Not performed this date Stand to Sit Contact Guard Assistance Not performed this date Bed to Chair Contact Guard Assistance Stand Pivot Not performed this date Toilet/Commode Functional Mobility Contact Guard Assistance Wheeled Walker Not performed this date Vital Signs Intra Assessment 1: SpO2 Intra 1, Oxygen Equipment Intra 1 Intra SpO2 1: 100 Intra O2 Equipment 1: Nasal Cannula Intra Oxygen Requirement 1: 2.5 Balance: Static Sitting;Dynamic Sitting;Static Standing;Dynamic Standing Static Sitting Balance: Supervision Dynamic Sitting Balance: Stand By Assistance Static Standing Balance: Stand By Assistance Dynamic Standing Balance: Contact Guard Assistance Please see discipline specific clinical documentation flowsheet for complete details for this therapy evaluation/treatment. SIGNATURE: Jesús Ibarra/OT PATIENT NAME: Luz Baca DATE: February 14, 2018 TIME: 4:17 PM PAGER: [phone] Michael Hogan DO 02/14/2018 6:22 PM Signed CONSULT PROGRESS NOTES PATIENT NAME: Luz Baca SERVICE DATE: 02/14/2018 SERVICE TIME: 6:21 PM CONSULTING SERVICE: Vascular Surgery ASSESSMENT AND PLAN Principal Problem (Resolved): Active Problems: Acute renal failure superimposed on stage 3 chronic kidney disease (HCC) POA: Yes Assessment AND Plan: Plan for tunneled catheter tomorrow afternoon. NPO after midnight SUBJECTIVE INTERVAL HPI: Still having SOB. MEDICATIONS: Current hospital medications: insulin glargine 30 Units injection (long acting) (LANTUS) 30 Units SUBCUTANEOUS AT BEDTIME furosemide 40 mg injection (LASIX) 40 mg INTRAVENOUS BID 9a/5p traMADol 50 mg tab(s) (ULTRAM) 50 mg ORAL q 12 H PRN HYDROcodone 5 mg - acetaminophen 325 mg tablet (NORCO) 1 tablet ORAL q 6 H PRN hydrocortisone 0.5 % cream TOPICAL BID ipratropium-albuterol 3 mL nebulizer solution (DUONEB) 3 mL INHALATION q 4 H PRN insulin lispro 12 Units injection (rapid acting) (HumaLOG) 12 Units SUBCUTANEOUS w MEALS insulin glargine 15 Units injection (long acting) (LANTUS) 15 Units SUBCUTANEOUS DAILY (8 AM) LORazepam 1 mg injection (ATIVAN) 1 mg INTRAVENOUS q 6 H PRN insulin lispro injection (rapid acting) (HumaLOG) SUBCUTANEOUS AT BEDTIME amiodarone 200 mg tab(s) (PACERONE) 200 mg ORAL DAILY melatonin 3 mg tab(s) 3 mg ORAL AT BEDTIME simvastatin 20 mg tab(s) (ZOCOR) 20 mg ORAL AT BEDTIME aluminum-magnesium hydroxide-simethicone 200-200-20 mg/5 mL 15 mL (MAALOX,MYLANTA,MAG-AL PLUS) 15 mL ORAL q 4 H PRN insulin lispro injection (rapid acting) (HumaLOG) SUBCUTANEOUS w MEALS carvedilol 3.125 mg tab(s) (COREG) 3.125 mg ORAL BID w MEALS cholecalciferol 1,000 Units tab(s) (VITAMIN D3) 1,000 Units ORAL DAILY allopurinol 100 mg tab(s) (ZYLOPRIM) 100 mg ORAL DAILY docusate sodium 100 mg cap(s) (COLACE) 100 mg ORAL BID polyethylene glycol 3350 17 g packet (MIRALAX, GLYCOLAX) 17 g ORAL DAILY bisacodyl 10 mg suppository (DULCOLAX) 10 mg RECTAL DAILY PRN sodium chloride 0.65 % 2 Parker (AYR, OCEAN) 2 Parker EACH NOSTRIL PRN gabapentin 200 mg cap(s) (NEURONTIN) 200 mg ORAL BID ondansetron orally disintegrating 4 mg tab(s) (ZOFRAN ODT) 4 mg ORAL q 6 H PRN acetaminophen 650 mg tab(s) (TYLENOL) 650 mg ORAL q [address] 40 mg tab(s) (PROTONIX) 40 mg ORAL BID bacitracin 1 application topical ointment 1 application TOPICAL BID isosorbide mononitrate ER 60 mg tab(s) (IMDUR) 60 mg ORAL DAILY 0.9% NaCl 3-5 mL 3-5 mL INTRAVENOUS q 12 H dextrose 40 % 15 g 15 g ORAL PRN glucagon 1 mg injection (GLUCAGEN) 1 mg INTRAMUSCULAR PRN dextrose 50% in water 25 mL syringe 12.5 g INTRAVENOUS PRN miconazole 2 % 1 application topical powder (LOTRIMIN AF, DESENEX) 1 application TOPICAL BID OBJECTIVE PHYSICAL EXAM: Patient Vitals for the past 24 hrs: BP Temp Temp src Pulse Resp SpO2 Weight 02/14/18 1613 120/70 36.4 ?C (97.6 ?F) Oral 79 18 98 % - 02/14/18 1132 (!) 125/40 36.3 ?C (97.4 ?F) Oral 79 20 99 % - 02/14/18 0800 - - - 81 18 - - 02/14/18 0758 118/55 36.3 ?C (97.4 ?F) - 74 16 95 % - 02/14/18 0431 - - - 75 - - 116.1 kg (256 lb) 02/14/18 0428 127/59 36.4 ?C (97.5 ?F) Axillary (!) 45 18 96 % - 02/13/18 2322 - - - 75 - - - 02/13/18 2320 114/51 36.5 ?C (97.7 ?F) Oral (!) 42 18 93 % - 02/13/18 2159 - - - 74 - - - 02/13/18 1940 136/71 36.3 ?C (97.3 ?F) Oral (!) 39 16 98 % - Body mass index is 38.92 kg/m?. GENERAL: Alert, no distress, cooperative EXTREMITIES: no significant upper extremity edema DATA: Diagnostic tests reviewed for today's visit: Most recent labs and imaging results. CBC: Recent Labs 02/14/18 0507 WBC 6.82 RBC 3.82* HB 11.3* HCT 36.3 PLT 203 MCV 95.0 MCH 29.6 MPV 9.4 Coags: No results for input(s): INR, APTT in the last 24 hours. Invalid input(s): PT BMP: Recent Labs 02/14/18 0507 NA 137 K 5.2* CHLOR 96* CO2 27 BUN 128* CREAT 3.35* GLUC 103* SIGNATURE: Michael Hogan DO DATE: February 14, 2018 TIME: 6:21 PM Malena Bray MD 02/15/2018 7:50 AM Signed Patient seen and examined. Feels short of breath. Has a dry cough. Is still quite weak. She is scheduled for tunneled HD catheter and initiation of HD today. Blood pressure 95/72, pulse 77, temperature 36.3 ?C (97.3 ?F), temperature source Oral, resp. rate 18, height 172.7 cm (5' 8), weight 116.3 kg (256 lb 6.4 oz), SpO2 98 %. Intake/Output Summary (Last 24 hours) at 02/15/18 0749 Last data filed at 02/14/18 2200 Gross per 24 hour Intake 620 ml Output 1 ml Net 619 ml Gen: weak Resp: diminished BS with poor AE CVS: no rub Abd: soft Ext: 1+ edema K 5.0, Cr 3.6 Hb 11.5 Urine Na < 10, Up/c 0.1 Vit D 15, PTH 198 Renal US no obstruction Impression: 1. ROMÁN on CKD 3 due to diuresis of right > left CHF -poor renal perfusion suggested by low urine Na -Cr has worsened with each diuretic attempt but she remains volume overloaded and with hyperkalemia 2. Edema multifactorial from right sided CHF and gabapentin 3. Hyperkalemia due to #1 4. Underlying CKD 3 followed [address] my partner Dr. Martin 5. Hyperuricemia now on allopurinol ? Plan: 1. Change to oral torsemide 2. Plan for tunneled HD catheter today with initiation of HD -2hr HD today with 0.5L of UF planned -HD x 3 consecutive days in house -consent signed for HD and in chart -check Hep profile 3. Low K diet; no potassium supplementation 4. Added oral Vit D 5. Decreased gabapentin to 200mg BID due to contribution to edema 6. Started allopurinol 100mg daily 7. Outpatient dialysis placement at [facility] 3x/week under my service on discharge ? Vanessa Gonzalez RN, RN 02/15/2018 11:10 AM Signed CARE MANAGEMENT PROGRESS NOTE SERVICE DATE: 02/15/2018 SERVICE TIME: 11:06 AM LOS: 18 days EMR reviewed. NEW DIALYSIS . Chose [facility], NEED F2F. Labs are Still in process Need Hep Panel Lab. Need Tunnel Cath, Need First Treatment. Referral sent as Ordered [facility], waiting on confirmation letter , with plan for a Wednesday dc . High Risk PCC Remi Waden. On 3L n/c today Chronic 2.5 LO2 at home From home with dtr. Dtr will transport. SIGNATURE: Vanessa Gonzalez RN PATIENT NAME: Luz Baca DATE: February 15, 2018 TIME: 11:06 AM PAGER/CONTACT #: [phone] CBC Collected: 01/26/2018 Status: F Source: [place] 12:44 PM [facility] REPOSITORY TYPE CODE TESTS RESULT OUT OF REFERENCE UNITS RANGE LAB WBC 3.70-11.00 k/uL WBC 8.66 LAB RBC 3.90-5.20 m/uL RBC 4.08 LAB HGB 11.5-15.5 g/dL Hemoglobin 12.5 LAB HCT 36.0-46.0 % Hematocrit 39.7 LAB MCV 80.0-100.0 fL MCV 97.3 LAB MCH 26.0-34.0 pG MCH 30.6 LAB MCHC 30.5-36.0 g/dL MCHC 31.5 LAB RDWCV 11.5-15.0 % RDW-CV High 15.2 LAB PLTCT 150-400 k/uL Platelet Count 154 LAB MPV 9.0-12.7 fL MPV 10.3 LAB ABSNUC <0.01 k/uL Absolute nRBC <0.01 Performed By: #### CBC, CMP, MG1, NTBNP #### [facility] [address] [address] COMP METABOLIC PANEL Collected: 01/26/2018 Status: F Source: [place] 12:44 PM [facility] REPOSITORY TYPE CODE TESTS RESULT OUT OF REFERENCE UNITS RANGE LAB TP 6.3-8.0 g/dL Protein, Total 6.3 LAB ALB 3.9-4.9 g/dL Low Albumin 3.1 LAB CA 8.5-10.2 mg/dL Calcium, Total 8.6 LAB TBIL 0.2-1.3 mg/dL Bilirubin, Total 0.4 LAB ALKP 32-117 U/L Alkaline Phosphatase 97 LAB AST 13-35 U/L AST 22 LAB GLU 74-99 mg/dL Glucose High 390 Result Comment: The [place] [employer] (ADA) provides guidance for cutoff values for fasting glucose and random glucose. The ADA defines fasting as no caloric intake for at least 8 hours. Fas ting plasma glucose results between 100 to 125 mg/dL indicate increased risk for diabetes (prediabetes). Fasting plasma glucose results greater than or equal to 126 mg/dL meet the criteria for diagnosis of diabetes. In the absence of unequivocal hyperglycemia, results should be confirmed by repeat testing. In a patient with classic symptoms of hyperglycemia or hyperglycemic crisis, random plasma glucose results greater than or equal to 200 mg/dL meet the criteria for diagnosis of diabetes. Reference: Standards of Medical Care in Diabetes 2016, [place] [employer]. Diabetes Care. 2016.39(Suppl 1). LAB BUN 7-21 mg/dL BUN High 45 LAB CRET 0.58-0.96 mg/dL Creatinine High 1.49 LAB NA 136-144 mmol/L Sodium 136 LAB K 3.7-5.1 mmol/L Potassium 5.1 LAB CL 97-105 mmol/L Low Chloride 96 LAB CO2 22-30 mmol/L CO2 26 LAB AGAP 9-18 mmol/L Anion Gap 14 LAB ALT 7-38 U/L ALT 24 LAB GFRAA eGFR- Amer. 41 LAB GFRNAA . eGFR-All Other Races 34 Result Comment: eGFR (Estimated GFR) Units of measure: mL/min/1.73 meters squared eGFR is derived from the reexpressed MDRD Study equation using the following parameters: serum creatinine, age, gender and race. The creatinine assay has been calibrated to be traceable to IDMS. An eGFR <60 mL/min/1.73m2 for >3 months is consistent with chronic kidney disease. Refer to KDOQI guidelines for clinical interpretation. In patients with unstable renal function, e.g. those with acute kidney injury, the eGFR may not accurately reflect actual GFR. Performed By: #### CBC, CMP, MG1, NTBNP #### [facility] [place] [address] [place] [address] MAGNESIUM Collected: 01/26/2018 Status: F Source: [place] 12:44 PM [facility] REPOSITORY TYPE CODE TESTS RESULT OUT OF REFERENCE UNITS RANGE LAB MG 1.7-2.3 mg/dL High Magnesium 2.5 Performed By: #### CBC, CMP, MG1, NTBNP #### [facility] [place] [address] [place] [address] NT PRO BNP Collected: 01/26/2018 Status: F Source: [place] 12:44 PM [facility] REPOSITORY TYPE CODE TESTS RESULT OUT OF REFERENCE UNITS RANGE LAB PBNP <450 pg/mL High PRO B Natr 1630 Peptide Performed By: #### CBC, CMP, MG1, NTBNP #### [facility] [place] [address], [place] [address] HEMOGLOBIN A1C Collected: 01/26/2018 Status: F Source: [place] 12:44 PM [facility] REPOSITORY TYPE CODE TESTS RESULT OUT OF REFERENCE UNITS RANGE LAB HGBA1C 4.3-5.6 % High Hemoglobin A1c 12.0 LAB HBA0 mg/dL Est. Average Glucose 298 Result Comment: eAG: (Estimated average glucose) is a calculated value from HgbA1c and is outreach representative of the average blood glucose level in the last 2-3 month period. Performed By: #### HBA1C #### [facility] [place] [address] [place], [place] [address] XR CHEST 2V FRONTAL/LAT Observed: 01/26/2018 Status: F Source: [place] 12:15 PM [facility] REPOSITORY * * *Final Report* * * DATE OF EXAM: Jan 26 2018 12:15PM WOX [id number] - XR CHEST 2V FRONTAL/LAT / PROCEDURE REASON: Acute on chronic combined systolic (congestive) and diastolic (congestive) heart * * * * Physician Interpretation * * * * EXAMINATION: CHEST RADIOGRAPH (PORTABLE SINGLE VIEW AP) Exam Date/Time: 01/26/2018 12:15 PM Clinical History: Acute on chronic combined systolic (congestive) and diastolic (congestive) heart failure M: XCP_4 Comparison: 01/20/2018 RESULT: IMPRESSION: 1. Lines, Tubes, and Devices: None 2. Lungs and Pleura: Left lung base difficult to evaluate still appears to be some prominence of the lung markings. This could represent some atelectasis infiltrate and/or scarring. 3. Cardiomediastinal silhouette: Moderate cardiomegaly again noted. Pulmonary vascularity is unremarkable. 4. Other: Bony structures unremarkable. Service Delivery Supervisor: SALINAS Transcribe Date/Time: Jan 27 2018 4:26P Dictated by : ELLA FRY DO This examination was interpreted and the report reviewed and electronically signed by: ELLA FRY DO on Jan 27 2018 4:30PM EST [id number] PROGRESS Observed: 01/26/2018 Status: COMPLETED Source: [place] 12:06 PM [facility] REPOSITORY HNO ID: [id number] Author: Sarahi Freeman (Rt) Guadalupe Martinez Service: (none) Author Type: Warehouse Material Handler Type: Progress Notes Filed: 01/26/2018 12:15 PM Note Text: Radiology Service Progress Note PATIENT NAME: Luz Baca DATE OF SERVICE: January 26, 2018 TIME: 12:06 PM PATIENT IDENTITY VERIFICATION COMPLETED USING TWO (2) METHODS: Patient confirmed name verbally and Date of . PATIENT GENDER DATA: Female. status: : No status: NO. PATIENT RELEVANT IMPLANT DATA REVIEWED: Not Applicable RADIOLOGY DEPARTMENT: General X-ray: Exam(s) Completed: Chest X-Ray PERIPHERAL IV DATA: Not applicable SIGNED BY: RT Rg January 26, 2018 12:06 PM PROGRESS Observed: 01/26/2018 Status: COMPLETED Source: [place] 11:54 AM [facility] REPOSITORY HNO ID: [id number] Author: Remi Briseno) Brent Service: (none) Author Type: Registered Nurse Type: Progress Notes Filed: 01/26/2018 12:00 PM Note Text: PRIMARY CARE COORDINATION IN OFFICE VISIT WITH PCP Patient has been identified by name and date of . PCP Assessment/Plan: Reviewed PCP plan with patient using Teach Back Discussed LE edema, lung sounds, chest pain w/ palpitations and burn on chin Discussed elevated BS. Pt has not changed her eating habits. PCP increased Lantus to 50 units in AM and 36 in PM and Novolog 12 with three meals. PCC will call pt for BS on Wednesday PCC Plan of Care: Patient concerns: Pt concerned about burn on chin, legs swelling and occasional chest pain w/palpitations Patient goals: Pt wants to stay out of hospital Pt has decreased her salt intake and decreasing fluid intake. PCC Interventions: TC to Dr. Martin' office, global head advertiser solutions took message that PCP increased Lasix to 80 mg BID due to LE edema and lung sounds and he wanted PCC to let Dr. Martin know. She will give message to MD's IDANIA. Next Office Visit: Visit date not found Plan For Next Call: 01/31 Remi Kennedy RN January 26, 2018 CNOV Observed: 01/26/2018 Status: COMPLETED Source: [place] [address]:00 AM [facility] REPOSITORY Office Visit (FAMPWS) LUZ BACA ([id number]) 1940 F Date Time Provider Department 01/26/18 11:00 AM JAMESON KAMARA) FAMPWS During your visit today, we recorded the following information about you: Pulse Respiration Blood pressure Weight 66/minute 16/minute 98/64 102.5 kg Jameson Kamara MD 01/27/2018 1:04 PM Signed Chief Complaint Patient presents with: Hospital Follow Up: requesting nystatin powder for under breasts , burn on chin from cooking grease HPI Luz Baca is a 77 year old female who presents here today for Hospital Discharge Follow up. Patient was admitted to [facility] from 01/20 to 01/23 for fluid overload and respiratory distress related to CHF, and COPD. While inpatient was diuresed which improved symptoms. Did not require ICU or intubation during hospitalization. Advised to take 60 mg of lasix BID along with potassium and follow up with PCP and nephrology. Since discharge, patient has followed up with Dr. Martin (nephrology) and they recommended continued regimen and repeat blood work which has not been obtained. Did not recommend increase in her lasix, despite still having swelling in her LE and orthopnea. States that she when she lies flat at night she feels like she cant breathe and had a great deal of difficulty with gastric emptying study obtained by GI due to this. Breathing otherwise is improved and feels like she is at her baseline from before hospitalization. Taking medications at home as prescribed without side effects. Glucose readings were significantly elevated during hospitalization with initial readings in the ED into the 800s. Was given higher doses of insulin while inpatient, but was told to go back to home dose on discharge. Glucose readings have been in the 300 range since. Discussed diabetic diet and will increase insulin and have PCC follow up on Wednesday. Noted burn on left side of chin which she sustained while frying an egg on 01/17. There is no mention of this from hospitalization and was apparently not addressed. Treating with triple abx ointment at home and covering with gauze. Denies fever, erythema, or drainage. Healing slowly. Would like nystatin powder for fungal rash under breasts bilaterally which has been present for a few weeks with itching. Past medical history, appointments, medications, allergies reviewed. Previous Medical History PAST MEDICAL HISTORY Diagnosis Date - Arthritis - Atrial fibrillation ([facility]) - CAD (coronary artery disease) stents x9, defibrillator, CABG. Seeing Dr. Cardona - Cardiac defibrillator in place - Cardiomegaly - Carotid artery disease ([facility]) left - CKD (chronic kidney disease), stage IV ([facility]) Dr. Martin - COPD (chronic obstructive pulmonary disease) ([facility]) Dr. Cruz - Depression - Diabetes ([facility]) - Diabetic neuropathy ([facility]) - GERD (gastroesophageal reflux disease) - Gout - HH (hiatus hernia) - HH (hiatus hernia) - HOCM (hypertrophic obstructive cardiomyopathy) ([facility]) - HOCM (hypertrophic obstructive cardiomyopathy) ([facility]) S/P Septal Myectomy in 2003. Echo 09/23/10 shows no visable GABRIEL. LVOT gradient is 8mmHg. - HTN (hypertension) - Hyperlipidemia - Morbid obesity with BMI of 40.0-44.9, adult ([facility]) - Pacemaker - Pneumonia h/o pneumonia/bronchitis - Renal insufficiency 2003 post op - Sleep apnea 2011 not on CPAP, unable to tolerate mask 02/2017 - SVT (supraventricular tachycardia) ([facility]) NSVT and questionable VT in 2003 post op Previous Surgical History PAST SURGICAL HISTORY Procedure Laterality Date - PAST SURGICAL HISTORY OF 07/18/2004 Septal myectomy and CABG x2 (DEBORAH-LAD, SVG-PDA). - PAST SURGICAL HISTORY OF left breast nodule removed - PAST SURGICAL HISTORY OF hysterectomy - PAST SURGICAL HISTORY OF perianal abscess drained - PAST SURGICAL HISTORY OF cholecystectomy - PAST SURGICAL HISTORY OF skin lesions removed Family History FAMILY HISTORY Problem Relation Age of Onset - Hypertension Mother living at age 93, HTN - Heart Failure Mother [place] - Cancer Father age 71, lung cancer Patient Allergies ALLERGIES Allergen Reactions - Aspirin Anaphylaxis sts that she bled out every orifice, sts not allowed to take it at all. - Bactrim [Sulfametho* Other: See Comments ANDquot;My throat swells up.ANDquot; - Latex Rash, Itching Itching and welts. No wheezing or shortness of breath. - Penicillins Rash, Itching Tolerated ceftriaxone during 11/2017 admission and cefepime during 12/2017 admission - Tetracycline Rash, GI Upset Emesis and diarrhea. - Atorvastatin Rash - Codeine Other: See Comments Numbness - Dilaudid [Hydromorp* Mental Status Change - Meperidine - Pentazocine - Pioglitazone Unknown - Propoxyphene Current Medications Current Outpatient Prescriptions on File Prior to Visit: furosemide (LASIX) 40 mg tablet Take 1.5 tablets by mouth twice daily. isosorbide mononitrate ER (IMDUR) 60 mg 24 hr tablet Take 1 tablet by mouth once daily. pantoprazole DR (PROTONIX) 40 mg tablet Take 1 tablet by mouth twice daily. insulin aspart U-100 (NOVOLOG FLEXPEN U-100 INSULIN) 100 unit/mL inpn Inject 10 Units subcutaneously three times daily with meals. insulin glargine (LANTUS SOLOSTAR U-100 INSULIN) 100 unit/mL (3 mL) inpn Inject 45 Units subcutaneously every morning. insulin glargine (LANTUS SOLOSTAR U-100 INSULIN) 100 unit/mL (3 mL) inpn Inject 30 Units subcutaneously daily at bedtime. potassium chloride ER (K-DUR, KLOR-CON) 10 mEq tablet TAKE ONE TABLET BY MOUTH DAILY WITH BREAKFAST apixaban (ELIQUIS) 5 mg tab(s) Take 5 mg by mouth twice daily. simvastatin (ZOCOR) 40 mg tablet Take 40 mg by mouth every morning. spironolactone (ALDACTONE) 25 mg tablet Take 1 tablet by mouth once daily. ipratropium-albuterol (DUONEB) 0.5 mg-3 mg(2.5 mg base)/3 mL nebu Inhale 3 mL as instructed every 4 hours as needed. guaiFENesin-dextromethorphan (ROBITUSSIN DM) 100-10 mg/5 mL syrup Take 5-10 mL by mouth every 6 hours as needed for Cough. albuterol (PROVENTIL) 5 mg/mL nebu Inhale 0.5 mL as instructed one time only for 1 dose. 1 DOSE NOW - BACK OFFICE. PLACE 0.5 ML PER DROPPER AND 2.5 ML OF NORMAL SALINE INTO RESERVOIR. nitroglycerin sublingual (NITROQUICK) 0.4 mg SL tablet Dissolve 1 tablet under the tongue every 5 minutes as needed. gabapentin (NEURONTIN) 300 mg capsule Take 2 capsules by mouth three times daily for 30 days. (Patient taking differently: Take 600 mg by mouth twice daily. ) albuterol HFA (VENTOLIN HFA) 90 mcg/actuation inhaler Inhale 2 Puffs as instructed every 4 hours as needed. OXYGEN, HOME THERAPY, Inhale 2.5 L/min as instructed continuous. 3 L/min when leaves home. No current facility-administered medications on file prior to visit. Social History Social History Marital status: Spouse name: Years of education: Number of children: Social History Main Topics Smoking status: Former Smoker Packs/day: 2.50 Years: 43.00 Types: Cigarettes Start date: 1961 Quit date: 07/07/2004 Smokeless status: Never Used Alcohol use: No Drug use: No Other Topics Concern Caffeine Concern Yes Comment:coffee 1 cup daily Special Diet No Comment:Regular Exercise No Comment:no unable, due to SOB x several months. Social History Narrative Patient and daughter live together. Review of Symptoms REVIEW OF SYSTEMS GENERAL: No weight loss, malaise or fevers RESPIRATORY: See HPI CARDIOVASCULAR: Negative for chest pain, leg swelling, hypertension, CHF. Admits to palpitations since discharge, every couple hours, which lasts for an instant and then resolves GI: No nausea, vomiting, or diarrhea SKIN: See HPI EXAM: BP 98/64 Pulse 66 Resp 16 Wt 102.5 kg (226 lb) SpO2 98% BMI 34.36 kg/m2 General Appearance: Well appearing, alert, in no acute distress, well-hydrated, well nourished.. Skin: healing 2nd degree burn on left side of chin with scabbing. No surrounding erythema or drainage. Has fungal rash under breasts bilaterally without signs of secondary infection. Lungs: decreased in left lung base without rales or wheezes. Poor air entry throughout, likely 2/2 habitus Heart: RRR without murmur, gallop, or rubs. No ectopy. Abdomen: Normal abdominal exam, Abdomen soft, non-tender. Bowel sounds normal. No masses, organomegaly. Extremities: Edema: Trace to 1+ to knees bilaterally. Health Maintenance List TETANUS due on 1952 COLORECTAL CANCER SCREENING,SEE MODIFIER due on 1991 BONE DENSITY due on 2006 ADULT PREVNAR-13 due on 2006 PNEUMOVAX AGE 65 AND OVER WITH 5YR LOOKBACK(1) due on 2006 URINE ALBUMIN CREATININE RATIO due on 05/17/2018 LDL due on 05/17/2018 DIABETIC FOOT EXAM due on 07/07/2018 HBA1C due on 07/22/2018 DILATED RETINAL EXAM due on 10/27/2018 INFLUENZA Completed Data reviewed Component Latest Ref Rng ANDamp; Units 01/21/2018 01/21/2018 01/22/2018 01/23/2018 2:04 AM 5:43 AM Glucose 74 - 99 mg/dL 484 (H) 274 (H) 142 (H) 132 (H) BUN 7 - 21 mg/dL 42 (H) 54 (H) 49 (H) Creatinine 0.58 - 0.96 mg/dL 1.49 (H) 1.94 (H) 1.75 (H) Sodium 136 - 144 mmol/L 138 139 135 (L) Potassium 3.7 - 5.1 mmol/L 4.7 4.5 4.4 Chloride 97 - 105 mmol/L 89 (L) 91 (L) 89 (L) CO2 22 - 30 mmol/L 36 (H) 40 (H) 35 (H) Anion Gap 9 - 18 mmol/L 13 8 (L) 11 Calcium 8.5 - 10.2 mg/dL 9.4 8.7 9.3 eGFR- 41 30 34 eGFR-All Other Races . 34 25 28 WBC 3.70 - 11.00 k/uL 11.93 (H) 9.70 RBC 3.90 - 5.20 m/uL 4.08 4.45 Hemoglobin 11.5 - 15.5 g/dL 12.5 13.6 Hematocrit 36.0 - 46.0 % 39.1 43.0 MCV 80.0 - 100.0 fL 95.8 96.6 MCH 26.0 - 34.0 pG 30.6 30.6 MCHC 30.5 - 36.0 g/dL 32.0 31.6 RDW-CV 11.5 - 15.0 % 15.0 15.1 (H) Platelet Count 150 - 400 k/uL 150 162 MPV 9.0 - 12.7 fL 9.6 9.7 Magnesium 1.7 - 2.3 mg/dL 2.1 2.1 2.1 Glucose, Point of Care 74 - 99 mg/dL 147 (A) ASSESSMENT/PLAN: 1. Acute on chronic combined systolic and diastolic CHF (congestive heart failure) (HCC) - ICD9: 428.43, 428.0, ICD10: I50.43 (primary diagnosis) Symptoms improving. Will repeat BNP, increase lasix to 80 mg BID, and check CXR due to decreased lung sounds with suspicion for pleural effusion vs infection. Patient to follow up with cardiology as recommended and will forward findings to nephrology. - FUROSEMIDE 40 MG TABLET - XR CHEST 2V FRONTAL/LAT - NT PRO BNP - COMP METABOLIC PANEL - CBC 2. Decreased breath sounds at left lung base - ICD9: 786.7, ICD10: R09.89 See above 3. Partial thickness burn of face, initial encounter - ICD9: 941.20, ICD10: T20.20XA Will have patient treat with bacitracin. Discussed likely scarring and to call if she develops symptoms of cellulitis. - BACITRACIN ZINC 500 UNIT/GRAM TOPICAL OINTMENT 4. Palpitations - ICD9: 785.1, ICD10: R00.2 Will check blood work and mag level. To notify cardiology if symptoms persist. - MAGNESIUM BLD 5. Bilateral lower extremity edema - ICD9: 782.3, ICD10: R60.0 Increase lasix, keep legs elevated. 6. Candidal intertrigo - ICD9: 112.3, ICD10: B37.2 Start nystatin powder as directed under breasts. Recommended patient keep area dry. - NYSTATIN 100,000 UNIT/GRAM TOPICAL POWDER 7. Atrial fibrillation, unspecified type (HCC) - ICD9: 427.31, ICD10: I48.91 Continue current regimen. Rate controlled. In normal rhythm today. 8. Coronary artery disease, angina presence unspecified, unspecified vessel or lesion type, unspecified whether rincon or transplanted heart - ICD9: 414.00, ICD10: I25.10 Continue current regimen per cardiology. 9. Chronic obstructive pulmonary disease with acute exacerbation (HCC) - ICD9: 491.21, ICD10: J44.1 No signs of exacerbation today. Continue aerosols. Follow up with pulmonology. 10. 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 - Blood glucose monitoring on a four times a day schedule - Follow up in 3 months, sooner should any other issues arise. - INSULIN ASPART U-100 100 UNIT/ML SUBCUTANEOUS PEN - INSULIN GLARGINE (U-100) 100 UNIT/ML (3 ML) SUBCUTANEOUS PEN - INSULIN GLARGINE (U-100) 100 UNIT/ML (3 ML) SUBCUTANEOUS PEN 11. Hospital discharge follow-up - ICD9: V67.59, ICD10: Z09 Improving slowly. Will adjust lasix dosing and obtain blood work as described above. 12. MARLA (obstructive sleep apnea) - ICD9: 327.23, ICD10: G47.33 Patient non compliant with CPAP. Briefly discussed referral to sleep medicine for repeat evaluation vs PSG. Will place order for both at this time. Jameson Kamara MD Referring Provider: JAMESON KAMARA () [[id number]] Allergies As of Date: 01/26/2018 Noted Allergy Reaction ASPIRIN 01/20/2018 10 - Anaphylaxis Comments: sts that she bled out every orifice, sts not allowed to take it at all. BACTRIM (SULFAMETHOXAZOLE-TRIMETH*05/17/2017 14 - Other: See Comments Comments: My throat swells up. LATEX 05/17/2017 2 - Rash 9 - Itching Comments: Itching and welts. No wheezing or shortness of breath. PENICILLINS 07/14/2004 2 - Rash 9 - Itching Comments: Tolerated ceftriaxone during 11/2017 admission and cefepime during 12/2017 admission TETRACYCLINE 09/29/2010 2 - Rash 8 - GI Upset Comments: Emesis and diarrhea. 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 Reason for Visit: Hospital Follow Up [177] Cmt: requesting nystatin powder for under breasts , burn on chin from cooking grease Reason For Visit History Recorded Primary Visit Diagnosis:Acute on chronic combined systolic and diastolic CHF (congestive heart failure) (HCC) [I50.43] Other Visit Diagnoses:Decreased breath sounds at left lung base [R09.89] Partial thickness burn of face, initial encounter [T20.20XA] Palpitations [R00.2] Bilateral lower extremity edema [R60.0] Candidal intertrigo [B37.2] Atrial fibrillation, unspecified type ([facility]) [I48.91] Coronary artery disease, angina presence unspecified, unspecified vessel or lesion type, unspecified whether rincon or transplanted heart [I25.10] Chronic obstructive pulmonary disease with acute exacerbation ([facility]) [J44.1] Uncontrolled type 2 diabetes mellitus with stage 3 chronic kidney disease, with long- term current use of insulin ([facility]) [E11.22, E11.65, N18.3, Z79.4] Hospital discharge follow-up [Z09] MARLA (obstructive sleep apnea) [G47.33] Order(s):insulin aspart U-100 (NOVOLOG FLEXPEN U-100 INSULIN) 100 unit/mL inpnInject 12 Units subcutaneously three times daily with meals.Disp: Rfl: insulin glargine (LANTUS SOLOSTAR U-100 INSULIN) 100 unit/mL (3 mL) inpnInject 50 Units subcutaneously every morning.Disp: Rfl: insulin glargine (LANTUS SOLOSTAR U-100 INSULIN) 100 unit/mL (3 mL) inpnInject 36 Units subcutaneously daily at bedtime.Disp: Rfl: furosemide (LASIX) 40 mg tabletTake 2 tablets by mouth twice daily.Disp: Rfl: bacitracin (ANTIBIOTIC, BACITRACIN ZINC,) ointmentApply 1 application to affected area twice daily.Disp: 1 TubeRfl: 1 XR CHEST 2V FRONTAL/LAT [[id number]] Order #: [id number] FUTURE NT PRO BNP [SQNTBNP] Order #: [id number] FUTURE COMP METABOLIC PANEL [SQCMP] Order #: [id number] FUTURE CBC [SQCBC] Order #: [id number] FUTURE MAGNESIUM BLD [SQMG1] Order #: [id number] FUTURE nystatin (NYSTOP) powderApply 1 application to affected area three times daily.Disp: 60 gRfl: 2 POLYSOMNOGRAM (PSG)/HOME SLEEP APNEA TESTING (HSAT) [[id number]] Order #: [id number] FUTURE CONSULT TO SLEEP MEDICINE - ADULT [8456950] Order #: [id number]: 1 Prescriptions as of 01/26/2018 Sig: INSULIN ASPART U-100 100 UNI* Inject 12 Units subcutaneousl* INSULIN GLARGINE (U-100) 100 * Inject 50 Units subcutaneousl* INSULIN GLARGINE (U-100) 100 * Inject 36 Units subcutaneousl* FUROSEMIDE 40 MG TABLET Take 2 tablets by mouth twice* ISOSORBIDE MONONITRATE ER 60 * Take 1 tablet by mouth once d* PANTOPRAZOLE 40 MG TABLET,DEL* Take 1 tablet by mouth twice * POTASSIUM CHLORIDE ER 10 MEQ * TAKE ONE TABLET BY MOUTH JANETH* APIXABAN 5 MG TABLET Take 5 mg by mouth twice janeth* SIMVASTATIN 40 MG TABLET Take 40 mg by mouth every mor* SPIRONOLACTONE 25 MG TABLET Take 1 tablet by mouth once d* IPRATROPIUM-ALBUTEROL 0.5 MG-* Inhale 3 mL as instructed leanne* DEXTROMETHORPHAN-GUAIFENESIN * Take 5-10 mL by mouth every 6* NITROGLYCERIN 0.4 MG SUBLINGU* Dissolve 1 tablet under the t* GABAPENTIN 300 MG CAPSULE Take 2 capsules by mouth thre* Patient taking differently: Take 600 mg by mouth twice da* OXYGEN (HOME THERAPY) Inhale 2.5 L/min as instructe* BACITRACIN ZINC 500 UNIT/GRAM* Apply 1 application to affect* NYSTATIN 100,000 UNIT/GRAM TO* Apply 1 application to affect* ALBUTEROL SULFATE CONCENTRATE* Inhale 0.5 mL as instructed o* Patient not taking: Reported on 01/26/2018 ALBUTEROL SULFATE HFA 90 MCG/* Inhale 2 Puffs as instructed * Patient not taking: Reported on 01/26/2018 Problem List As Of Date 01/26/2018 Noted Resolved HOCM (hypertrophic obstructive cardiomyopathy) * 01/23/2018 Priority: I More... SVT (supraventricular tachycardia) (HCC) [I47.1] 01/21/2018 More... Carotid artery disease (HCC) [I77.9] 01/22/2018 CAD (coronary artery disease) [I25.10] Priority: E More... Essential hypertension [I10] Priority: M More... Hyperlipidemia [E78.5] Pneumonia [J18.9] 10/27/2017 More... COPD (chronic obstructive pulmonary disease) (H* Priority: F More... Sleep apnea [G47.30] Priority: L More... HH (hiatus hernia) [K44.9] 01/21/2018 GERD (gastroesophageal reflux disease) [K21.9] Priority: K More... More... Arthritis [M19.90] Numbness and tingling of right leg [R20.0, R20.* 01/21/2018 Depression [F32.9] Atrial fibrillation (HCC) [I48.91] INVALID FOR* Priority: D More... Uncontrolled type 2 diabetes mellitus with stag*INVALID FOR* Priority: H More... More... More... Heart failure, systolic, acute (HCC) [I50.21] INVALID FOR*01/21/2018 More... Class 1 obesity due to excess calories with ser*INVALID FOR* Priority: M More... Gout [M10.9] Pacemaker [Z95.0] Acute on chronic combined systolic and diastoli*INVALID FOR* Priority: B More... Elevated troponin [R74.8] INVALID FOR*01/22/2018 Priority: G More... Pulmonary hypertension [I27.20] INVALID FOR* Oral thrush [B37.0] INVALID FOR*01/21/2018 Hyponatremia [E87.1] INVALID FOR*01/22/2018 Priority: J Hyperkalemia [E87.5] INVALID FOR*01/22/2018 Priority: J Prescriptions ordered this encounter Disp Refills Start End INSULIN ASPART U-100 100 UNIT/ML FRAZIER* 01/26/2018 Class: Med Update Route: SUBCUTANEOUS Sig: Inject 12 Units subcutaneously three times daily with meals. INSULIN GLARGINE (U-100) 100 UNIT/ML* 01/26/2018 Class: Med Update Route: SUBCUTANEOUS Sig: Inject 50 Units subcutaneously every morning. INSULIN GLARGINE (U-100) 100 UNIT/ML* 01/26/2018 Class: Med Update Route: SUBCUTANEOUS Sig: Inject 36 Units subcutaneously daily at bedtime. FUROSEMIDE 40 MG TABLET 01/26/2018 Class: Med Update Route: ORAL Sig: Take 2 tablets by mouth twice daily. BACITRACIN ZINC 500 UNIT/GRAM TOPICA* 1 Tu* 1 01/26/2018 Route: TOPICAL Sig: Apply 1 application to affected area twice daily. NYSTATIN 100,000 UNIT/GRAM TOPICAL P* 60 g 2 01/26/2018 Route: TOPICAL Sig: Apply 1 application to affected area three times daily. Medications Discontinued During This Encounter insulin aspart U-100 (NOVOLOG FLEXPE* 12/31/2017 01/26/2018 Class: Med Update Route: SUBCUTANEOUS Sig: Inject 10 Units subcutaneously three times daily with meals. Disc: Reason for discontinue is not on file. insulin glargine (LANTUS SOLOSTAR U-* 12/31/2017 01/26/2018 Class: Med Update Route: SUBCUTANEOUS Sig: Inject 45 Units subcutaneously every morning. Disc: Reason for discontinue is not on file. insulin glargine (LANTUS SOLOSTAR U-* 12/31/2017 01/26/2018 Class: Med Update Route: SUBCUTANEOUS Sig: Inject 30 Units subcutaneously daily at bedtime. Disc: Reason for discontinue is not on file. furosemide (LASIX) 40 mg tablet 01/07/2018 01/26/2018 Class: Med Update Route: ORAL Sig: Take 1.5 tablets by mouth twice daily. Disc: Reason for discontinue is not on file. Encounter Status:Closed by JAMESON KAMARA MD on 01/27/18 PROGRESS Observed: 01/26/2018 Status: COMPLETED Source: [place] 10:50 AM [facility] REPOSITORY [facility] ID: [id number] Author: Jameson Adams) [place] Service: (none) Author Type: Physician Type: Progress Notes Filed: 01/27/2018 1:04 PM Note Text: Chief Complaint Patient presents with: Hospital Follow Up: requesting nystatin powder for under breasts , burn on chin from cooking grease HPI Luz Baca is a 77 year old female who presents here today for Hospital Discharge Follow up. Patient was admitted to [facility] from 01/20 to 01/23 for fluid overload and respiratory distress related to CHF, and COPD. While inpatient was diuresed which improved symptoms. Did not require ICU or intubation during hospitalization. Advised to take 60 mg of lasix BID along with potassium and follow up with PCP and nephrology. Since discharge, patient has followed up with Dr. Martin (nephrology) and they recommended continued regimen and repeat blood work which has not been obtained. Did not recommend increase in her lasix, despite still having swelling in her LE and orthopnea. States that she when she lies flat at night she feels like she cant breathe and had a great deal of difficulty with gastric emptying study obtained by GI due to this. Breathing otherwise is improved and feels like she is at her baseline from before hospitalization. Taking medications at home as prescribed without side effects. Glucose readings were significantly elevated during hospitalization with initial readings in the ED into the 800s. Was given higher doses of insulin while inpatient, but was told to go back to home dose on discharge. Glucose readings have been in the 300 range since. Discussed diabetic diet and will increase insulin and have PCC follow up on Wednesday. Noted burn on left side of chin which she sustained while frying an egg on 01/17. There is no mention of this from hospitalization and was apparently not addressed. Treating with triple abx ointment at home and covering with gauze. Denies fever, erythema, or drainage. Healing slowly. Would like nystatin powder for fungal rash under breasts bilaterally which has been present for a few weeks with itching. Past medical history, appointments, medications, allergies reviewed. Previous Medical History PAST MEDICAL HISTORY Diagnosis Date - Arthritis - Atrial fibrillation (HCC) - CAD (coronary artery disease) stents x9, defibrillator, CABG. Seeing Dr. Cardona - Cardiac defibrillator in place - Cardiomegaly - Carotid artery disease (HCC) left - CKD (chronic kidney disease), stage IV ([facility]) Dr. Martin - COPD (chronic obstructive pulmonary disease) ([facility]) Dr. Cruz - Depression - Diabetes ([facility]) - Diabetic neuropathy ([facility]) - GERD (gastroesophageal reflux disease) - Gout - HH (hiatus hernia) - HH (hiatus hernia) - HOCM (hypertrophic obstructive cardiomyopathy) ([facility]) - HOCM (hypertrophic obstructive cardiomyopathy) ([facility]) S/P Septal Myectomy in 2003. Echo 09/23/10 shows no visable GABRIEL. LVOT gradient is 8mmHg. - HTN (hypertension) - Hyperlipidemia - Morbid obesity with BMI of 40.0-44.9, adult (HCC) - Pacemaker - Pneumonia h/o pneumonia/bronchitis - Renal insufficiency 2003 post op - Sleep apnea 2011 not on CPAP, unable to tolerate mask 02/2017 - SVT (supraventricular tachycardia) ([facility]) NSVT and questionable VT in 2003 post op Previous Surgical History PAST SURGICAL HISTORY Procedure Laterality Date - PAST SURGICAL HISTORY OF 07/18/2004 Septal myectomy and CABG x2 (DEBORAH-LAD, SVG-PDA). - PAST SURGICAL HISTORY OF left breast nodule removed - PAST SURGICAL HISTORY OF hysterectomy - PAST SURGICAL HISTORY OF perianal abscess drained - PAST SURGICAL HISTORY OF cholecystectomy - PAST SURGICAL HISTORY OF skin lesions removed Family History FAMILY HISTORY Problem Relation Age of Onset - Hypertension Mother living at age 93, HTN - Heart Failure Mother [place] - Cancer Father age 71, lung cancer Patient Allergies ALLERGIES Allergen Reactions - Aspirin Anaphylaxis sts that she bled out every orifice, sts not allowed to take it at all. - Bactrim [Sulfametho* Other: See Comments My throat swells up. - Latex Rash, Itching Itching and welts. No wheezing or shortness of breath. - Penicillins Rash, Itching Tolerated ceftriaxone during 11/2017 admission and cefepime during 12/2017 admission - Tetracycline Rash, GI Upset Emesis and diarrhea. - Atorvastatin Rash - Codeine Other: See Comments Numbness - Dilaudid [Hydromorp* Mental Status Change - Meperidine - Pentazocine - Pioglitazone Unknown - Propoxyphene Current Medications Current Outpatient Prescriptions on File Prior to Visit: furosemide (LASIX) 40 mg tablet Take 1.5 tablets by mouth twice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 CAREGIVER ASSESSMENT: Caregiver is ready, willing and able to meet the patient's needs as recommended by the inter-professional team? Yes Patient's transition needs and plan for meeting these needs: Pts. Family and [facility] agency are able to assist in meeting pts. Needs. Does the patient have an acute stroke diagnosis, or has the patient had a stroke during this admission? 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 Kamara TRANSPORTATION ARRANGEMENTS: Car Dtr. to transport home ADDITIONAL CONTACT RESOURCES: Dtr. Brought pts. Portable O2 tank to hospital for transport home. Discharge Information ED to Hosp-Admission (Discharged) from 01/20/[address] [facility] Start of Care 01/25/18 FREEDOM OF CHOICE GIVEN: Yes given to pt. bedside Preference: Resume HHC w/[facility] Needs Prior to Discharge: None;Ready for Discharge IM letter given to pt. And her dtr. bedside on 01/23/18 at 1430. SW met w/pt. Bedside. SW introduced self and explained role. Pt. Will go home w/resumption of HHC w/[facility]. Pt. Is established w/Home O2 and her dtr. Bought her portable tank to the hospital. SW delivered IM to pt. Pt. Has no further questions/comments/concerns. Pts. Dtr. Will transport her home. SW will send summary of care to PCC and PCP. SW will remain available should any further discharge planning needs arise. SIGNATURE: Raffi Meyer MERCHANDISE MARKER, LAYER UP, ACM PATIENT NAME: Luz Baca DATE: January 23, 2018 TIME: 3:34 PM PAGER/CONTACT #: [email or web address] Observed: 01/23/2018 Status: COMPLETED Source: [place] 12:07 PM CLINIC OTHER CAMPUS REPOSITORY HNO ID: [id number] Author: Micha Nesbitt MD Service: Hospital Medicine Author Type: Physician Type: Discharge Summaries Filed: 01/23/2018 12:13 PM Note Text: DISCHARGE SUMMARY PATIENT NAME: Luz Baca Admission Information Admission Information ADMIT DATE: 01/20/2018 DISCHARGE DATE: 01/23/2018 MY DOCTORS AND MEDICAL TEAM: My Main Hospital Doctor: Micha Nesbitt MD Primary Care Provider: Jameson Kamara MD My Medical Team Members: Treatment Team: Attending Provider: Micha Nesbitt MD Consulting: Mauro Ramírez Consulting: Krishan Irwin Rai Consulting: Dina Bowman MD MY CONDITION AT DISCHARGE: Stable REASON I WAS IN THE HOSPITAL: You had fluid buildup with heart failure. SUMMARY OF WHAT HAPPENED WHILE I WAS IN THE HOSPITAL: Fluid was taken off of you. Your symptoms have improved and seemed to benefit mixture with your lung and heart disease. Be careful with her diet and especially not to aspirate food. Be sure usual CPAP at home. OTHER PROBLEMS/DIAGNOSIS: Active Problems: Acute on chronic combined systolic and diastolic CHF (congestive heart failure) ([facility]) Atrial fibrillation (HCC) CAD (coronary artery disease) COPD (chronic obstructive pulmonary disease) ([facility]) Uncontrolled type 2 diabetes mellitus with stage 3 chronic kidney disease, with long-term current use of insulin ([facility]) GERD (gastroesophageal reflux disease) Sleep apnea Essential hypertension Class 1 obesity due to excess calories with serious comorbidity in adult Resolved Problems: Elevated troponin HOCM (hypertrophic obstructive cardiomyopathy) ([facility]) Hyponatremia Hyperkalemia Carotid artery disease ([facility]) OPERATIONS PERFORMED WHILE IN THE HOSPITAL: None IMPORTANT TEST/PROCEDURES: No procedures performed TEST RESULTS NOT AVAILABLE AT THIS TIME: No pending results Discharge Disposition Discharge Disposition: Home With Home Care Activity When You Leave the Hospital Resume pre-hospital activity Diet Instructions Diabetic Discussed with dietitian weight loss diet. The loss of 10 pounds may significantly improve your quality of life. For Pain When You Leave the Hospital Use acetaminophen (Tylenol) as recommended on the bottle Follow Up Appointments Follow-Up Appointment When: In 1 week Patient/Parents to call for appointment?: Yes Jameson Adams) Koffi [phone] [id number] [facility] [id number] PCP Requested Referral Additional Provider to Provider Information: Active Hospital Problems as of 01/23/2018 Noted - Resolved B Acute on chronic combined systolic and diastolic CHF (congestive heart failure) ([facility]) 12/10/2017 - Present Current Assessment AND Plan Assessment: Has diuresed well PLAN: Continue therapy as per cardiology D Atrial fibrillation ([facility]) 09/23/2010 - Present Overview In sinus rhythm on telemetry after cardioversion yesterday. On BB Pt started on lovenox anticoagulation, warfarin therapy INR 1.2 today Current Assessment AND Plan Assessment: Good rate control/Eliquis for anticoagulation PLAN: Continue current regimen E CAD (coronary artery disease) Unknown - Present Overview CABGx2 (DEBORAH-LAD, SVG-PDA ) in 2003 Current Assessment AND Plan Assessment: Currently stable PLAN: INACTIVE PROBLEM F COPD (chronic obstructive pulmonary disease) ([facility]) Unknown - Present Current Assessment AND Plan Assessment: Dyspnea seems to be from metabolic alkalosis exam looks good PLAN: Continue current therapy H Uncontrolled type 2 diabetes mellitus with stage 3 chronic kidney disease, with long-term current use of insulin ([facility]) 09/23/2004 - Present Current Assessment AND Plan Hemoglobin A1C (%) Date Value 01/20/2018 12.3 Assessment: Poor control prior to admission PLAN: Adjustments per endocrinology K GERD (gastroesophageal reflux disease) Unknown - Present Current Assessment AND Plan Assessment: Adequate symptom control PLAN: Symptomatic treatment L Sleep apnea Unknown - Present Overview Wears CPAP at home Respiratory therapy for CPAP settings Current Assessment AND Plan Assessment: Need to assess CPAP use PLAN: Encourage home CPAP use M Class 1 obesity due to excess calories with serious comorbidity in adult 2010 - Present Current Assessment AND Plan Assessment: Patient counseled PLAN: Continue with outpatient counseling after discharge Essential hypertension Unknown - Present Overview Current Assessment AND Plan Assessment: Problem is stable with current regimen. PLAN: Continue current regimen Resolved Hospital Problems as of 01/23/2018 Noted - Resolved G Elevated troponin 12/10/2017 - 01/22/2018 I HOCM (hypertrophic obstructive cardiomyopathy) (HCC) Unknown - 01/23/2018 Overview S/P Septal Myectomy in 2003. Echo 09/23/10 shows no visable GABRIEL. LVOT gradient is 8mmHg. J Hyperkalemia 01/20/2018 - 01/22/2018 Hyponatremia 01/20/2018 - 01/22/2018 Unprioritized Carotid artery disease (HCC) Unknown - 01/22/2018 FOLLOW-UP APPOINTMENTS ALREADY SCHEDULED WITH A [facility] PROVIDER: Future Appointments Date Time Provider Department Center 01/25/2018 9:30 AM [facility] 01/25/2018 10:30 AM [facility] 01/25/2018 11:30 AM [facility] 01/25/2018 1:30 PM [facility] 01/26/2018 11:00 AM Jameson Adams) Koffi SCHULTZ [facility] 02/07/2018 11:00 AM Mandy SANDOVAL [facility] 04/04/2018 8:00 AM J[facility]DAN [facility] VSLWST [facility] 04/04/2018 9:00 AM [facility] VSLWST [facility] 04/04/2018 10:30 AM Michael BROWNSWS [facility] 04/21/2018 2:50 PM Jose C NEWBERRY [facility] 05/24/2018 1:30 PM Aren Cardona AGCARDWST [facility] 10/04/2018 1:00 PM Ene Hubbard [facility] [address] DISCHARGE MEDICATION: Current Discharge Medication List CONTINUE these medications which have NOT CHANGED pantoprazole DR (PROTONIX) 40 mg Take 40 mg by mouth twice daily. Associated Diagnoses:Gastroesophageal reflux disease, esophagitis presence not specified albuterol HFA (PROVENTIL HFA, VENTOLIN HFA) 2 Puffs Inhale 2 Puffs as instructed every 4 hours as needed. Qty: 1 Inhaler Refills: 1 Associated Diagnoses:Chronic obstructive pulmonary disease, unspecified COPD type ([facility]) furosemide (LASIX) 60 mg Take 60 mg by mouth twice daily. Associated Diagnoses:Acute on chronic combined systolic and diastolic CHF (congestive heart failure) ([facility]) isosorbide mononitrate ER (IMDUR) 60 mg Take 60 mg by mouth once daily. Qty: 30 tablet Refills: 5 Associated Diagnoses:Coronary artery disease, angina presence unspecified, unspecified vessel or lesion type, unspecified whether rincon or transplanted heart insulin aspart U-100 (NovoLOG) 10 Units Inject 10 Units subcutaneously three times daily with meals. !! insulin glargine (LANTUS SOLOSTAR, BASAGLAR) 45 Units Inject 45 Units subcutaneously every morning. !! insulin glargine (LANTUS SOLOSTAR, BASAGLAR) 30 Units Inject 30 Units subcutaneously daily at bedtime. potassium chloride ER (K-DUR, KLOR-CON) 10 mEq tablet TAKE ONE TABLET BY MOUTH DAILY WITH BREAKFAST Qty: 30 tablet Refills: 5 apixaban (ELIQUIS) 5 mg Take 5 mg by mouth twice daily. simvastatin (ZOCOR) 40 mg Take 40 mg by mouth every morning. spironolactone (ALDACTONE) 25 mg Take 25 mg by mouth once daily. ipratropium-albuterol (DUONEB) 3 mL Inhale 3 mL as instructed every 4 hours as needed. Qty: 180 Vial Refills: 3 Associated Diagnoses:Shortness of breath guaiFENesin-dextromethorphan (ROBITUSSIN DM) 5-10 mL Take 5-10 mL by mouth every 6 hours as needed for Cough. Qty: 118 mL Refills: 0 albuterol (PROVENTIL) 2.5 mg Inhale 2.5 mg as instructed one time only. 1 DOSE NOW - BACK OFFICE. PLACE 0.5 ML PER DROPPER AND 2.5 ML OF NORMAL SALINE INTO RESERVOIR. Qty: 1 mL Refills: 0 nitroglycerin sublingual (NITROQUICK) 0.4 mg Dissolve 0.4 mg under the tongue every 5 minutes as needed. Qty: 1 Bottle of 25 Refills: 0 gabapentin (NEURONTIN) 600 mg Take 600 mg by mouth three times daily. Associated Diagnoses:Uncontrolled type 2 diabetes mellitus with complication, with long-term current use of insulin (HCC) OXYGEN, HOME THERAPY, 2.5 L/min Inhale 2.5 L/min as instructed continuous. 3 L/min when leaves home. !! - Potential duplicate medications found. Please discuss with provider. BP 131/52 Pulse 64 Temp 36.7 ?C (98.1 ?F) (Oral) Resp 18 Ht 172.7 cm (5' 8) Wt 98.7 kg (217 lb 11.2 oz) SpO2 98% BMI 33.1 kg/m2 GENERAL: Alert, no distress, cooperative NECK: No Jugulovenous distention LUNGS: Clear without respiratory distress - much improved from yesterday CARDIAC: RRR without murmur, rub, or gallop ABDOMEN: Abdomen soft, non-tender, BS normal, No masses or organomegaly EXTREMITIES: Trace edema No cords NEURO: Grossly normal cognition, motor function, and cranial nerves. TIME OF CARE: Discharge Management: I personally spent greater than 30 minutes involved in the discharge management of this patient. SIGNATURE: Micha Nesbitt MD PAGER/CONTACT #: DATE: January 23, 2018 TIME: 12:07 PM NUTRITION Observed: 01/23/2018 Status: COMPLETED Source: [place] 11:48 AM CLINIC OTHER CAMPUS REPOSITORY O ID: [id number] Author: Megan Buck Service: Nutrition Therapy Author Type: Registered Dietitian Type: Nutrition Filed: 01/23/2018 11:50 AM Note Text: NUTRITION THERAPY SCREENING NOTE SERVICE DATE: 01/23/2018 SERVICE TIME: 1110 NUTRITION CARE PLAN Patient's weight is stable and nutritional intake is adequate. Patient is not at risk for malnutrition at this time. Intervention: Carb Controlled diet Weight changes d/t fluids. Dry weight low 200's per patient Discharge Nutrition Recommendations: Diet: Home on carbohydrate controlled diet Present Diet Order: Carbohydrate Controlled Appetite 100%, No issues chewing, swallowing, nausea or emesis reported. Admission Weight: 114.3 kg (252 lb) Current Weight: 98.7 kg (217 lb 11.2 oz) Body mass index is 33.1 kg/(m2). class 1 obesity Weight has not changed. Decreased d/t fluids Dry Weight low 200's reported MNT Billing Type: Initial Assess/15 min 1 unit SIGNATURE: Megan Buck RD PATIENT NAME: Luz Baca DATE: January 23, 2018 TIME: 11:48 AM CONSULT PROG Observed: 01/23/2018 Status: COMPLETED Source: [place] 11:45 AM CLINIC OTHER CAMPUS REPOSITORY HNO ID: [id number] Author: Leonidas Benjamin (Fel) Service: Cardiovascular Medicine Author Type: Physician Type: Consult Progress Note Filed: 01/23/2018 11:48 AM Note Text: CONSULT: CARDIOLOGY SERVICE CONSULTING PHYSICIAN: Mauro Ramírez MD PCP: Jameson Kamara MD ATTENDING: Micha Nesbitt MD SUBJECTIVE/INTERVAL EVENTS -This AM, feels improved from a breathing perspective, but reports some difficulty swallowing food with breakfast. -With holding further diuretics, improvement in BUN/Cr/CO2 this AM -Otherwise, no new complaints Current hospital medications: insulin glargine 20 Units injection (long acting) (LANTUS) 20 Units SUBCUTANEOUS AT BEDTIME insulin glargine 30 Units injection (long acting) (LANTUS) 30 Units SUBCUTANEOUS DAILY (8 AM) insulin lispro 15 Units injection (rapid acting) (HumaLOG) 15 Units SUBCUTANEOUS TID w MEALS dextrose 40 % 15 g 15 g ORAL PRN glucagon 1 mg injection (GLUCAGEN) 1 mg INTRAMUSCULAR PRN dextrose 50% in water 25 mL syringe 12.5 g INTRAVENOUS PRN gabapentin 600 mg cap(s) (NEURONTIN) 600 mg ORAL BID simvastatin 40 mg tab(s) (ZOCOR) 40 mg ORAL DAILY ipratropium-albuterol 3 mL nebulizer solution (DUONEB) 3 mL INHALATION q 4 H while awake apixaban 5 mg tab(s) (ELIQUIS) 5 mg ORAL BID spironolactone 25 mg tab(s) (ALDACTONE) 25 mg ORAL DAILY isosorbide mononitrate ER 60 mg tab(s) (IMDUR) 60 mg ORAL DAILY nitroglycerin sublingual 0.4 mg tab(s) (NITROQUICK) 0.4 mg SUBLINGUAL q 5 MIN PRN budesonide 0.5 mg/2 mL 0.5 mg (PULMICORT) 0.5 mg INHALATION BID albuterol 2.5 mg /3 mL (0.083 %) 2.5 mg (PROVENTIL) 2.5 mg INHALATION q 4 H PRN ALLERGIES Allergen Reactions - Aspirin Anaphylaxis sts that she bled out every orifice, sts not allowed to take it at all. - Bactrim [Sulfametho* Other: See Comments My throat swells up. - Latex Rash, Itching Itching and welts. No wheezing or shortness of breath. - Penicillins Rash, Itching Tolerated ceftriaxone during 11/2017 admission and cefepime during 12/2017 admission - Tetracycline Rash, GI Upset Emesis and diarrhea. - Atorvastatin Rash - Codeine Other: See Comments Numbness - Dilaudid [Hydromorp* Mental Status Change - Meperidine - Pentazocine - Pioglitazone Unknown - Propoxyphene OBJECTIVE BP 131/52 Pulse 64 Temp 36.7 ?C (98.1 ?F) (Oral) Resp 18 Ht 172.7 cm (5' 8) Wt 98.7 kg (217 lb 11.2 oz) SpO2 98% BMI 33.1 kg/m2 Body mass index is 33.1 kg/(m2). Intake/Output Summary (Last 24 hours) at 01/23/18 1145 Last data filed at 01/23/18 1000 Gross per 24 hour Intake 842 ml Output 2175 ml Net -1333 ml General: Pt is able to communicate. Patient is not in acute respiratory distress. SKIN: No rash or lumps. Hyperpigmentation is noted on the lower legs from chronic venous stasis Eyes. Pupils are round and accommodative to light. HEENT: Normocephalic, face symmetrical. Normal pinna. Throat is without congestion. NECK: Supple, no JVD, no carotid bruit, no thyromegaly. LUNGS: Clear to auscultation bilaterally. Pacemaker site is well healed over the left pectoral area CARDIAC: Normal S1 and S2, grade 2 over 6 left sternal border systolic murmur. ABDOMEN: Soft, nontender, bowel sounds present. EXTREMITIES: No cyanosis, clubbing, trace lower extremity edema PULSES: Peripheral pulses are decreased in Dorsalis pedis and Posterior tibial arteries bilaterally. NEURO: Non-focal. Awake, alert and oriented. Moves all extremities. MUSCULOSKELETAL: No fracture or dislocation of the bones or joints. -GLUCOSE, BLOOD (POC) Collection Time: 01/23/18 2:53 AM Result Value Ref Range Glucose, Point of Care 251 (A) 74 - 99 mg/dL Narrative Meter ID:[id number] -BASIC METABOLIC PNL Collection Time: 01/23/18 5:12 AM Result Value Ref Range Glucose 132 (H) 74 - 99 mg/dL BUN 49 (H) 7 - 21 mg/dL Creatinine 1.75 (H) 0.58 - 0.96 mg/dL Sodium 135 (L) 136 - 144 mmol/L Potassium 4.4 3.7 - 5.1 mmol/L Chloride 89 (L) 97 - 105 mmol/L CO2 35 (H) 22 - 30 mmol/L Anion Gap 11 9 - 18 mmol/L Calcium 9.3 8.5 - 10.2 mg/dL eGFR- 34 eGFR-All Other Races 28 . -CBC Collection Time: 01/23/18 5:12 AM Result Value Ref Range WBC 9.70 3.70 - 11.00 k/uL RBC 4.45 3.90 - 5.20 m/uL Hemoglobin 13.6 11.5 - 15.5 g/dL Hematocrit 43.0 36.0 - 46.0 % MCV 96.6 80.0 - 100.0 fL MCH 30.6 26.0 - 34.0 pG MCHC 31.6 30.5 - 36.0 g/dL RDW-CV 15.1 (H) 11.5 - 15.0 % Platelet Count 162 150 - 400 k/uL MPV 9.7 9.0 - 12.7 fL -MAGNESIUM BLD Collection Time: 01/23/18 5:12 AM Result Value Ref Range Magnesium 2.1 1.7 - 2.3 mg/dL Impression/Recommendations Patient Active Hospital Problem List: Acute on chronic combined systolic and diastolic CHF (congestive heart failure) ([facility]) (12/10/2017) Atrial fibrillation ([facility]) (09/23/2010) CAD (coronary artery disease) () COPD (chronic obstructive pulmonary disease) (HCC) () Uncontrolled type 2 diabetes mellitus with stage 3 chronic kidney disease, with long-term current use of insulin (HCC) (09/23/2004) GERD (gastroesophageal reflux disease) () Sleep apnea () Essential hypertension () Obesity (2010) -As with Dr. Ramírez's prior notes, dyspnea in certainly multi- factorial but presently does not seem secondary to CHF given volume status (near dry weight) and worsening contraction alkalosis on 01/22/18. Would continue to hold diuretics for an additional day, consider restarting home po lasix on 01/24 -Continue home NOAC -As an outpatient may be a candidate for RHC to assess for PH -Appreciate pulmonary recs -We will continue to follow Leonidas Benjamin M.D., PGY-7 Fellow, Electrophysiology Section ([place]) Staff, Regional Cardiology Section ([place], [place], [place]) Clinical Instructor, [facility] Pager: [phone] CONSULT PROG Observed: 01/23/2018 Status: COMPLETED Source: [place] 9:43 AM [facility] OTHER CAMPUS REPOSITORY HNO ID: [id number] Author: Dina Bowman MD Service: Endocrinology Author Type: Physician Type: Consult Progress Note Filed: 01/23/2018 9:47 AM Note Text: Endocrinology Progress Note IMPRESSION: Type 2 diabetes mellitus, insulin-requiring - improving control, prandial doses were cut in half yesterday PLAN: Decreased Humalog at meals to 15 units, continue current Lantus doses Discontinued the Goodson catheter (patient not on furosemide) INTERVAL HISTORY: Breathing easier, eating meals. Goodson catheter remains in place. (+) dysphagia, intermittent with choking sensation. Current hospital medications: insulin glargine 20 Units injection (long acting) (LANTUS) 20 Units SUBCUTANEOUS AT BEDTIME insulin glargine 30 Units injection (long acting) (LANTUS) 30 Units SUBCUTANEOUS DAILY (8 AM) insulin lispro 15 Units injection (rapid acting) (HumaLOG) 15 Units SUBCUTANEOUS TID w MEALS dextrose 40 % 15 g 15 g ORAL PRN glucagon 1 mg injection (GLUCAGEN) 1 mg INTRAMUSCULAR PRN dextrose 50% in water 25 mL syringe 12.5 g INTRAVENOUS PRN gabapentin 600 mg cap(s) (NEURONTIN) 600 mg ORAL BID simvastatin 40 mg tab(s) (ZOCOR) 40 mg ORAL DAILY ipratropium-albuterol 3 mL nebulizer solution (DUONEB) 3 mL INHALATION q 4 H while awake apixaban 5 mg tab(s) (ELIQUIS) 5 mg ORAL BID spironolactone 25 mg tab(s) (ALDACTONE) 25 mg ORAL DAILY isosorbide mononitrate ER 60 mg tab(s) (IMDUR) 60 mg ORAL DAILY nitroglycerin sublingual 0.4 mg tab(s) (NITROQUICK) 0.4 mg SUBLINGUAL q 5 MIN PRN budesonide 0.5 mg/2 mL 0.5 mg (PULMICORT) 0.5 mg INHALATION BID albuterol 2.5 mg /3 mL (0.083 %) 2.5 mg (PROVENTIL) 2.5 mg INHALATION q 4 H PRN PHYSICAL EXAM:BP 127/61 Pulse (!) 59 Temp 36.3 ?C (97.3 ?F) (Oral) Resp 18 Ht 172.7 cm (5' 8) Wt 98.7 kg (217 lb 11.2 oz) SpO2 98% BMI 33.1 kg/m2 General appearance: Well-appearing, obese (BMI greater than 30) septuagenarian female, alert, in no acute distress, well-hydrated, well nourished. Skin: Skin color, texture, turgor normal, no suspicious rashes or lesions Head: normocephalic, no masses, lesions, tenderness or abnormalities Eyes: Anicteric sclera. Pupils are equally round. Extraocular movements are intact. Ears: not examined Nose/Sinuses: Nares normal. No drainage or sinus tenderness. Oropharynx: Lips, mucosa, and tongue normal, teeth and gums not examined. Neck: Supple, no adenopathy; no palpable thyroid enlargement. Lungs: Breathing unlabored. Heart: RRR. No ectopy Abdomen: deferred Extremities: No deformities, edema, skin discoloration, clubbing or cyanosis. Good capillary refill. Musculoskeletal: Spine range of motion not tested. Muscular strength intact, No joint swelling, deformity, or tenderness Peripheral pulses: Normal Neuro: Gait normal. Sensation grossly intact. LAB DATA: Fingerstick glucose readings reviewed. Results for LUZ BACA ( ) Ref. Range 01/23/2018 05:12 Sodium Latest Ref Range: 136 - 144 mmol/L 135 (L) Potassium Latest Ref Range: 3.7 - 5.1 mmol/L 4.4 Chloride Latest Ref Range: 97 - 105 mmol/L 89 (L) CO2 Latest Ref Range: 22 - 30 mmol/L 35 (H) BUN Latest Ref Range: 7 - 21 mg/dL 49 (H) Creatinine Latest Ref Range: 0.58 - 0.96 mg/dL 1.75 (H) Glucose Latest Ref Range: 74 - 99 mg/dL 132 (H) Calcium Latest Ref Range: 8.5 - 10.2 mg/dL 9.3 Magnesium Latest Ref Range: 1.7 - 2.3 mg/dL 2.1 eGFR-All Others Latest Units: . 28 Dina Bowman MD [facility] Endocrinology and Metabolism [place] [facility] January 23, 2018 09:44 AM CBC Collected: 01/23/2018 Status: F Source: [place] 5:12 AM [facility] OTHER CAMPUS REPOSITORY TYPE CODE TESTS RESULT OUT OF REFERENCE UNITS RANGE LAB WBC 3.70-11.00 k/uL WBC 9.70 LAB RBC 3.90-5.20 m/uL RBC 4.45 LAB HGB 11.5-15.5 g/dL Hemoglobin 13.6 LAB HCT 36.0-46.0 % Hematocrit 43.0 LAB MCV 80.0-100.0 fL MCV 96.6 LAB MCH 26.0-34.0 pG MCH 30.6 LAB MCHC 30.5-36.0 g/dL MCHC 31.6 LAB RDWCV 11.5-15.0 % RDW-CV High 15.1 LAB PLTCT 150-400 k/uL Platelet Count 162 LAB MPV 9.0-12.7 fL MPV 9.7 Performed By: #### CBC, BMP, MG1 #### [facility] [address] [facility] [phone] BASIC METABOLIC PANL Collected: 01/23/2018 Status: F Source: [place] 5:12 AM [facility] OTHER [place] REPOSITORY TYPE CODE TESTS RESULT OUT OF REFERENCE UNITS RANGE LAB GLU 74-99 mg/dL High Glucose 132 Result Comment: The [place] [employer] (ADA) provides guidance for cutoff values for fasting glucose and random glucose. The ADA defines fasting as no caloric intake for at least 8 hours. Fas ting plasma glucose results between 100 to 125 mg/dL indicate increased risk for diabetes (prediabetes). Fasting plasma glucose results greater than or equal to 126 mg/dL meet the criteria for diagnosis of diabetes. In the absence of unequivocal hyperglycemia, results should be confirmed by repeat testing. In a patient with classic symptoms of hyperglycemia or hyperglycemic crisis, random plasma glucose results greater than or equal to 200 mg/dL meet the criteria for diagnosis of diabetes. Reference: Standards of Medical Care in Diabetes 2016, [place] [employer]. Diabetes Care. 2016.39(Suppl 1). LAB BUN 7-21 mg/dL BUN High 49 LAB CRET 0.58-0.96 mg/dL Creatinine High 1.75 LAB NA 136-144 mmol/L Low Sodium 135 LAB K 3.7-5.1 mmol/L Potassium 4.4 LAB CL 97-105 mmol/L Low Chloride 89 LAB CO2 22-30 mmol/L CO2 High 35 LAB AGAP 9-18 mmol/L Anion Gap 11 LAB CA 8.5-10.2 mg/dL Calcium, Total 9.3 LAB GFRAA eGFR- Amer. 34 LAB GFRNAA . eGFR-All Other Races 28 Result Comment: eGFR (Estimated GFR) Units of measure: mL/min/1.73 meters squared eGFR is derived from the reexpressed MDRD Study equation using the following parameters: serum creatinine, age, gender and race. The creatinine assay has been calibrated to be traceable to IDMS. An eGFR <60 mL/min/1.73m2 for >3 months is consistent with chronic kidney disease. Refer to KDOQI guidelines for clinical interpretation. In patients with unstable renal function, e.g. those with acute kidney injury, the eGFR may not accurately reflect actual GFR. Performed By: #### CBC, BMP, MG1 #### [facility] [address] [place] [address] MAGNESIUM Collected: 01/23/2018 Status: F Source: [place] 5:12 AM [facility] OTHER [place] REPOSITORY TYPE CODE TESTS RESULT OUT OF REFERENCE UNITS RANGE LAB MG 1.7-2.3 mg/dL Magnesium 2.1 Performed By: #### CBC, BMP, MG1 #### [facility] [address] [place] [address] PROGRESS Observed: 01/22/2018 Status: COMPLETED Source: [place] 5:16 PM CLINIC OTHER CAMPUS REPOSITORY O ID: [id number] Author: Micha Nesbitt MD Service: Hospital Medicine Author Type: Physician Type: Progress Notes Filed: 01/23/2018 9:34 AM Note Text: SERVICE DATE: 01/22/2018 SERVICE TIME: 5:16 PM HOSPITAL MEDICINE PROGRESS NOTE NIGHT AND WEEKEND COVERAGE: Nights: Please contact pager [phone]. Reason for Admission/Observation: Chest pain HOSPITAL DAY ZERO: 01/20/2018 Presentation: 77-year-old female with a history of atrial fibrillation and coronary artery disease with multiple stents as well as a defibrillator/pacer and hypertension and hyperlipidemia and diabetes and CHF and COPD now presenting with intermittent 1-2 minute episodes of sharp chest discomfort in her mid sternal area that happen every so often since last night, similar to previous COPD/CHF problems. She has increased leg swelling and diffuse swelling and worsening breathing when trying to lie flat or get up and exerted herself as well. She is usually on 2 L nasal cannula, which is working at this point. She denies hemoptysis. She has no high fevers or chills. She does take an oral anticoagulant and she takes Lasix/spironolactone Consultants: Dr. Angel Bowman Disposition: Home with [facility] SUBJECTIVE Interval HPI:No chest pain subjective progressive shortness of breath. her bicarbonate is rising I'm not sure if this is because of alkalosis from the diuresis or because of CO2 retention. The dyspnea seems to be from metabolic alkalosis. OBJECTIVE Reviewed lines, drains, AND airways. Need to be continued . BP 127/61 Pulse (!) 59 Temp 36.3 ?C (97.3 ?F) (Oral) Resp 18 Ht 172.7 cm (5' 8) Wt 98.7 kg (217 lb 11.2 oz) SpO2 98% BMI 33.1 kg/m2 GENERAL: Alert, no distress, cooperative, Obese NECK: Jugulovenous distention no Supple Yes HJR no LUNGS: Tracheal tug (recruitment of all accessory muscles) - no Prolonged expiratory phase - moderately prolonged Adventitious sounds -crackles - left base with diffuse lower rhonchi bilaterally anterior wheezes CARDIAC: Rhythm:Regular rhythm Rate: normal S1: soft S2: paradoxical split Gallop - no Murmur soft murmur Heave no ABDOMEN: Abdomen soft, non-tender, BS normal, No masses or organomegaly EXTREMITIES: trace edema No cords - with improving stasis dermatitis bilaterally to the knees NEURO: Grossly normal cognition, motor function, and cranial nerves. DATA: Diagnostic tests reviewed for today's visit: Most recent labs Overview was reviewed. Pulse ox Most recent Xrays/CT Core Driller Helper Most recent EKG CARE COORDINATION: No Patient Care Coordination Note on file. ASSESSMENT AND PLAN Assessment AND Plan, all Hosp Problems Active Hospital Problems as of 01/23/2018 Noted - Resolved B Acute on chronic combined systolic and diastolic CHF (congestive heart failure) ([facility]) 12/10/2017 - Present Current Assessment AND Plan Assessment: Has diuresed well PLAN: Continue therapy as per cardiology C * (Principal)Acute on chronic respiratory failure with hypoxia ([facility]) 12/10/2017 - Present Current Assessment AND Plan Assessment: The dyspnea seems to be with the elevated bicarbonate with a metabolic alkalosis and chronic CO2 retention. The chloride loss from the diuresis is the cause for the alkalosis. PLAN: Follow bicarbonate level and treat symptomatically D Atrial fibrillation ([facility]) 09/23/2010 - Present Current Assessment AND Plan Assessment: Good rate control/Eliquis for anticoagulation PLAN: Continue current regimen E CAD (coronary artery disease) Unknown - Present Current Assessment AND Plan Assessment: Currently stable PLAN: INACTIVE PROBLEM F COPD (chronic obstructive pulmonary disease) ([facility]) Unknown - Present Current Assessment AND Plan Assessment: Dyspnea seems to be from metabolic alkalosis exam looks good PLAN: Continue current therapy H Uncontrolled type 2 diabetes mellitus with stage 3 chronic kidney disease, with long-term current use of insulin ([facility]) 09/23/2004 - Present Current Assessment AND Plan Hemoglobin A1C (%) Date Value 01/20/2018 12.3 Assessment: Poor control prior to admission PLAN: Adjustments per endocrinology I HOCM (hypertrophic obstructive cardiomyopathy) ([facility]) Unknown - Present Current Assessment AND Plan Assessment: Status post myomectomy remotely PLAN: INACTIVE PROBLEM K GERD (gastroesophageal reflux disease) Unknown - Present Current Assessment AND Plan Assessment: Adequate symptom control PLAN: Symptomatic treatment L Sleep apnea Unknown - Present Current Assessment AND Plan Assessment: Need to assess CPAP use PLAN: M Essential hypertension Unknown - Present Obesity 2010 - Present Current Assessment AND Plan Assessment: Patient counseled PLAN: Continue with outpatient counseling after discharge Plan of care discussed with: Patient, Family/Other:and RN SIGNATURE: Micha Nesbitt MD PATIENT NAME: Luz Baca DATE: January 22, 2018 TIME: 5:16 PM PAGER/CONTACT #: CONSULT PROG Observed: 01/22/2018 Status: COMPLETED Source: [place] 11:17 AM CLINIC OTHER CAMPUS REPOSITORY HNO ID: [id number] Author: Dina Bowman MD Service: Endocrinology Author Type: Physician Type: Consult Progress Note Filed: 01/22/2018 11:22 AM Note Text: Endocrinology Progress Note IMPRESSION: Type 2 diabetes mellitus, insulin-requiring - improving control, postprandials still a bit high PLAN: Increase Humalog at meals to 30 units, continue current Lantus doses INTERVAL HISTORY: Breathing easier, eating meals. Goodson catheter remains in place, she prefers to keep it due to diuretic use. Current hospital medications: insulin glargine 40 Units injection (long acting) (LANTUS) 40 Units SUBCUTANEOUS AT BEDTIME insulin glargine 60 Units injection (long acting) (LANTUS) 60 Units SUBCUTANEOUS DAILY (8 AM) insulin lispro 24 Units injection (rapid acting) (HumaLOG) 24 Units SUBCUTANEOUS TID w MEALS dextrose 40 % 15 g 15 g ORAL PRN glucagon 1 mg injection (GLUCAGEN) 1 mg INTRAMUSCULAR PRN dextrose 50% in water 25 mL syringe 12.5 g INTRAVENOUS PRN gabapentin 600 mg cap(s) (NEURONTIN) 600 mg ORAL BID simvastatin 40 mg tab(s) (ZOCOR) 40 mg ORAL DAILY ipratropium-albuterol 3 mL nebulizer solution (DUONEB) 3 mL INHALATION q 4 H while awake apixaban 5 mg tab(s) (ELIQUIS) 5 mg ORAL BID spironolactone 25 mg tab(s) (ALDACTONE) 25 mg ORAL DAILY isosorbide mononitrate ER 60 mg tab(s) (IMDUR) 60 mg ORAL DAILY nitroglycerin sublingual 0.4 mg tab(s) (NITROQUICK) 0.4 mg SUBLINGUAL q 5 MIN PRN budesonide 0.5 mg/2 mL 0.5 mg (PULMICORT) 0.5 mg INHALATION BID albuterol 2.5 mg /3 mL (0.083 %) 2.5 mg (PROVENTIL) 2.5 mg INHALATION q 4 H PRN PHYSICAL EXAM:BP (!) 104/47 Pulse 66 Temp 36.3 ?C (97.3 ?F) (Oral) Resp 18 Ht 172.7 cm (5' 8) Wt 99.1 kg (218 lb 6.4 oz) SpO2 99% BMI 33.21 kg/m2 General appearance: Well-appearing, obese (BMI greater than 30) septuagenarian female, alert, in no acute distress, well-hydrated, well nourished. Skin: Skin color, texture, turgor normal, no suspicious rashes or lesions Head: normocephalic, no masses, lesions, tenderness or abnormalities Eyes: Anicteric sclera. Pupils are equally round. Extraocular movements are intact. Ears: not examined Nose/Sinuses: Nares normal. No drainage or sinus tenderness. Oropharynx: Lips, mucosa, and tongue normal, teeth and gums not examined. Neck: Supple, no adenopathy; no palpable visible thyroid enlargement. Lungs: Breathing unlabored. Heart: RRR. No ectopy Abdomen: deferred Extremities: No deformities, edema, skin discoloration, clubbing or cyanosis. Good capillary refill. Musculoskeletal: Spine range of motion not tested. Muscular strength intact, No joint swelling, deformity, or tenderness Peripheral pulses: Normal Neuro: Gait normal. Sensation grossly intact. LAB DATA: Fingerstick glucose readings reviewed. Results for LUZ BACA ( ) Ref. Range 01/22/2018 05:34 Sodium Latest Ref Range: 136 - 144 mmol/L 139 Potassium Latest Ref Range: 3.7 - 5.1 mmol/L 4.5 Chloride Latest Ref Range: 97 - 105 mmol/L 91 (L) CO2 Latest Ref Range: 22 - 30 mmol/L 40 (H) BUN Latest Ref Range: 7 - 21 mg/dL 54 (H) Creatinine Latest Ref Range: 0.58 - 0.96 mg/dL 1.94 (H) Glucose Latest Ref Range: 74 - 99 mg/dL 142 (H) Calcium Latest Ref Range: 8.5 - 10.2 mg/dL 8.7 Magnesium Latest Ref Range: 1.7 - 2.3 mg/dL 2.1 Anion Gap Latest Ref Range: 9 - 18 mmol/L 8 (L) eGFR-All Other Races Latest Units: . 25 Dina Bowman MD [facility] Endocrinology and Metabolism [place] [facility] January 22, 2018 11:17 AM CONSULT PROG Observed: 01/22/2018 Status: COMPLETED Source: [place] 10:16 AM CLINIC OTHER CAMPUS REPOSITORY HNO ID: [id number] Author: Leonidas Benjamin (Fel) Service: Cardiovascular Medicine Author Type: Physician Type: Consult Progress Note Filed: 01/22/2018 10:21 AM Note Text: CONSULT: CARDIOLOGY SERVICE CONSULTING PHYSICIAN: Mauro Ramírez MD PCP: Jameson Kamara MD ATTENDING: Micha Nesbitt MD SUBJECTIVE/INTERVAL EVENTS -This AM, reports feeling persistently dyspneic. This is despite ongoing IV diuresis, net negative 1.3 L in last 24 hours, and on exam this AM, no significant evidence of volume overload (no elevated JVP, trace lower extremity edema). With this diuresis, has had worsening renal function with BUN/Cr 54/1.94 this AM from 42/1.49 yesterday, also CO2 rising 42 to 54 Current hospital medications: insulin glargine 40 Units injection (long acting) (LANTUS) 40 Units SUBCUTANEOUS AT BEDTIME insulin glargine 60 Units injection (long acting) (LANTUS) 60 Units SUBCUTANEOUS DAILY (8 AM) insulin lispro 24 Units injection (rapid acting) (HumaLOG) 24 Units SUBCUTANEOUS TID w MEALS dextrose 40 % 15 g 15 g ORAL PRN glucagon 1 mg injection (GLUCAGEN) 1 mg INTRAMUSCULAR PRN dextrose 50% in water 25 mL syringe 12.5 g INTRAVENOUS PRN gabapentin 600 mg cap(s) (NEURONTIN) 600 mg ORAL BID simvastatin 40 mg tab(s) (ZOCOR) 40 mg ORAL DAILY ipratropium-albuterol 3 mL nebulizer solution (DUONEB) 3 mL INHALATION q 4 H while awake apixaban 5 mg tab(s) (ELIQUIS) 5 mg ORAL BID spironolactone 25 mg tab(s) (ALDACTONE) 25 mg ORAL DAILY isosorbide mononitrate ER 60 mg tab(s) (IMDUR) 60 mg ORAL DAILY nitroglycerin sublingual 0.4 mg tab(s) (NITROQUICK) 0.4 mg SUBLINGUAL q 5 MIN PRN budesonide 0.5 mg/2 mL 0.5 mg (PULMICORT) 0.5 mg INHALATION BID albuterol 2.5 mg /3 mL (0.083 %) 2.5 mg (PROVENTIL) 2.5 mg INHALATION q 4 H PRN ALLERGIES Allergen Reactions - Aspirin Anaphylaxis sts that she bled out every orifice, sts not allowed to take it at all. - Bactrim [Sulfametho* Other: See Comments My throat swells up. - Latex Rash, Itching Itching and welts. No wheezing or shortness of breath. - Penicillins Rash, Itching Tolerated ceftriaxone during 11/2017 admission and cefepime during 12/2017 admission - Tetracycline Rash, GI Upset Emesis and diarrhea. - Atorvastatin Rash - Codeine Other: See Comments Numbness - Dilaudid [Hydromorp* Mental Status Change - Meperidine - Pentazocine - Pioglitazone Unknown - Propoxyphene OBJECTIVE BP (!) 104/47 Pulse 65 Temp 36.3 ?C (97.3 ?F) (Oral) Resp 22 Ht 172.7 cm (5' 8) Wt 99.1 kg (218 lb 6.4 oz) SpO2 97% BMI 33.21 kg/m2 Body mass index is 33.21 kg/(m2). Intake/Output Summary (Last 24 hours) at 01/22/18 1016 Last data filed at 01/22/18 0900 Gross per 24 hour Intake 680 ml Output 2375 ml Net -1695 ml General: Pt is able to communicate. Patient is not in acute respiratory distress. SKIN: No rash or lumps. Hyperpigmentation is noted on the lower legs from chronic venous stasis Eyes. Pupils are round and accommodative to light. HEENT: Normocephalic, face symmetrical. Normal pinna. Throat is without congestion. NECK: Supple, no JVD, no carotid bruit, no thyromegaly. LUNGS: Clear to auscultation bilaterally. Pacemaker site is well healed over the left pectoral area CARDIAC: Normal S1 and S2, grade 2 over 6 left sternal border systolic murmur. ABDOMEN: Soft, nontender, bowel sounds present. EXTREMITIES: No cyanosis, clubbing, trace lower extremity edema PULSES: Peripheral pulses are decreased in Dorsalis pedis and Posterior tibial arteries bilaterally. NEURO: Non-focal. Awake, alert and oriented. Moves all extremities. MUSCULOSKELETAL: No fracture or dislocation of the bones or joints. -BASIC METABOLIC PNL Collection Time: 01/22/18 5:34 AM Result Value Ref Range Glucose 142 (H) 74 - 99 mg/dL BUN 54 (H) 7 - 21 mg/dL Creatinine 1.94 (H) 0.58 - 0.96 mg/dL Sodium 139 136 - 144 mmol/L Potassium 4.5 3.7 - 5.1 mmol/L Chloride 91 (L) 97 - 105 mmol/L CO2 40 (H) 22 - 30 mmol/L Anion Gap 8 (L) 9 - 18 mmol/L Calcium 8.7 8.5 - 10.2 mg/dL eGFR- 30 eGFR-All Other Races 25 . -CBC Collection Time: 01/22/18 5:34 AM Result Value Ref Range WBC 11.93 (H) 3.70 - 11.00 k/uL RBC 4.08 3.90 - 5.20 m/uL Hemoglobin 12.5 11.5 - 15.5 g/dL Hematocrit 39.1 36.0 - 46.0 % MCV 95.8 80.0 - 100.0 fL MCH 30.6 26.0 - 34.0 pG MCHC 32.0 30.5 - 36.0 g/dL RDW-CV 15.0 11.5 - 15.0 % Platelet Count 150 150 - 400 k/uL MPV 9.6 9.0 - 12.7 fL -MAGNESIUM BLD Collection Time: 01/22/18 5:34 AM Result Value Ref Range Magnesium 2.1 1.7 - 2.3 mg/dL Impression/Recommendations Patient Active Hospital Problem List: Acute on chronic respiratory failure with hypoxia ([facility]) (12/10/2017) Acute on chronic combined systolic and diastolic CHF (congestive heart failure) ([facility]) (12/10/2017) Atrial fibrillation ([facility]) (09/23/2010) CAD (coronary artery disease) () COPD (chronic obstructive pulmonary disease) ([facility]) () Elevated troponin (12/10/2017) Uncontrolled type 2 diabetes mellitus with stage 3 chronic kidney disease, with long-term current use of insulin ([facility]) (09/23/2004) HOCM (hypertrophic obstructive cardiomyopathy) ([facility]) () Hyponatremia (01/20/2018) Hyperkalemia (01/20/2018) GERD (gastroesophageal reflux disease) () Sleep apnea () Essential hypertension () Obesity (2010) -As with Dr. Ramírez's prior notes, dyspnea in certainly multi- factorial but presently does not seem secondary to CHF given volume status (near dry weight) and worsening contraction alkalosis. Have d/c lasix in response -Continue home NOAC -As an outpatient may be a candidate for RHC to assess for PH -Appreciate pulmonary recs Leonidas Benjamin M.D., PGY-7 Fellow, Electrophysiology Section ([facility]) Staff, Regional Cardiology Section ([facility]) Clinical Instructor, [facility] Pager: [phone] CBC Collected: 01/22/2018 Status: F Source: [place] 5:34 AM [facility] REPOSITORY TYPE CODE TESTS RESULT OUT OF REFERENCE UNITS RANGE LAB WBC 3.70-11.00 k/uL WBC High 11.93 LAB RBC 3.90-5.20 m/uL RBC 4.08 LAB HGB 11.5-15.5 g/dL Hemoglobin 12.5 LAB HCT 36.0-46.0 % Hematocrit 39.1 LAB MCV 80.0-100.0 fL MCV 95.8 LAB MCH 26.0-34.0 pG MCH 30.6 LAB MCHC 30.5-36.0 g/dL MCHC 32.0 LAB RDWCV 11.5-15.0 % RDW-CV 15.0 LAB PLTCT 150-400 k/uL Platelet Count 150 LAB MPV 9.0-12.7 fL MPV 9.6 Performed By: #### CBC, BMP, MG1 #### [facility] [address] [place] [address] BASIC METABOLIC PANL Collected: 01/22/2018 Status: F Source: [place] 5:34 AM [facility] REPOSITORY TYPE CODE TESTS RESULT OUT OF REFERENCE UNITS RANGE LAB GLU 74-99 mg/dL High Glucose 142 Result Comment: The [place] [employer] (ADA) provides guidance for cutoff values for fasting glucose and random glucose. The ADA defines fasting as no caloric intake for at least 8 hours. Fas ting plasma glucose results between 100 to 125 mg/dL indicate increased risk for diabetes (prediabetes). Fasting plasma glucose results greater than or equal to 126 mg/dL meet the criteria for diagnosis of diabetes. In the absence of unequivocal hyperglycemia, results should be confirmed by repeat testing. In a patient with classic symptoms of hyperglycemia or hyperglycemic crisis, random plasma glucose results greater than or equal to 200 mg/dL meet the criteria for diagnosis of diabetes. Reference: Standards of Medical Care in Diabetes 2016, [place] [employer]. Diabetes Care. 2016.39(Suppl 1). LAB BUN 7-21 mg/dL BUN High 54 LAB CRET 0.58-0.96 mg/dL Creatinine High 1.94 LAB NA 136-144 mmol/L Sodium 139 LAB K 3.7-5.1 mmol/L Potassium 4.5 LAB CL 97-105 mmol/L Low Chloride 91 LAB CO2 22-30 mmol/L CO2 High 40 LAB AGAP 9-18 mmol/L Low Anion Gap 8 LAB CA 8.5-10.2 mg/dL Calcium, Total 8.7 LAB GFRAA eGFR- Amer. 30 LAB GFRNAA . eGFR-All Other Races 25 Result Comment: eGFR (Estimated GFR) Units of measure: mL/min/1.73 meters squared eGFR is derived from the reexpressed MDRD Study equation using the following parameters: serum creatinine, age, gender and race. The creatinine assay has been calibrated to be traceable to IDMS. An eGFR <60 mL/min/1.73m2 for >3 months is consistent with chronic kidney disease. Refer to KDOQI guidelines for clinical interpretation. In patients with unstable renal function, e.g. those with acute kidney injury, the eGFR may not accurately reflect actual GFR. Performed By: #### CBC, BMP, MG1 #### [facility] [address] [place], [place] [id number] MAGNESIUM Collected: 01/22/2018 Status: F Source: [place] 5:34 AM [facility] OTHER [place] REPOSITORY TYPE CODE TESTS RESULT OUT OF REFERENCE UNITS RANGE LAB MG 1.7-2.3 mg/dL Magnesium 2.1 Performed By: #### CBC, BMP, MG1 #### [facility] [address] [place] [id number] PROGRESS Observed: 01/21/2018 Status: COMPLETED Source: [place] 3:29 PM [facility] REPOSITORY HNO ID: [id number] Author: Micha Nesbitt MD Service: Hospital Medicine Author Type: Physician Type: Progress Notes Filed: 01/21/2018 3:29 PM Note Text: SERVICE DATE: 01/21/2018 SERVICE TIME: 3:29 PM HOSPITAL MEDICINE PROGRESS NOTE NIGHT AND WEEKEND COVERAGE: Nights: Please contact pager [phone]. Reason for Admission/Observation: Chest pain HOSPITAL DAY ZERO: 01/20/2018 Presentation: 77-year-old female with a history of atrial fibrillation and coronary artery disease with multiple stents as well as a defibrillator/pacer and hypertension and hyperlipidemia and diabetes and CHF and COPD now presenting with intermittent 1-2 minute episodes of sharp chest discomfort in her mid sternal area that happen every so often since last night, similar to previous COPD/CHF problems. She has increased leg swelling and diffuse swelling and worsening breathing when trying to lie flat or get up and exerted herself as well. She is usually on 2 L nasal cannula, which is working at this point. She denies hemoptysis. She has no high fevers or chills. She does take an oral anticoagulant and she takes Lasix/spironolactone Consultants: Dr. Angel Craig Disposition: Home with [facility] SUBJECTIVE Interval HPI:No chest pain or shortness of breath. OBJECTIVE Reviewed lines, drains, AND airways. Need to be continued . BP 125/58 Pulse 61 Temp 36.3 ?C (97.3 ?F) (Oral) Resp 18 Ht 172.7 cm (5' 8) Wt 103.9 kg (229 lb 0.3 oz) SpO2 96% BMI 34.82 kg/m2 GENERAL: Alert, no distress, cooperative, Obese NECK: Jugulovenous distention no Supple Yes HJR no LUNGS: Tracheal tug (recruitment of all accessory muscles) - no Prolonged expiratory phase - moderately prolonged Adventitious sounds -crackles - left base with diffuse lower rhonchi bilaterally anterior wheezes CARDIAC: Rhythm:Regular rhythm Rate: normal S1: soft S2: soft Gallop - no Murmur too much respiratory noise to evaluate Heave no ABDOMEN: Abdomen soft, non-tender, BS normal, No masses or organomegaly EXTREMITIES: 2+ edema No cords - with stasis dermatitis bilaterally to the knees NEURO: Grossly normal cognition, motor function, and cranial nerves. DATA: Diagnostic tests reviewed for today's visit: Most recent labs Overview was reviewed. Pulse ox Most recent Xrays/CT Core Driller Helper Most recent EKG CARE COORDINATION: No Patient Care Coordination Note on file. ASSESSMENT AND PLAN Assessment AND Plan, all Hosp Problems Active Hospital Problems as of 01/21/2018 Noted - Resolved B Acute on chronic combined systolic and diastolic CHF (congestive heart failure) ([facility]) 12/10/2017 - Present C * (Principal)Acute on chronic respiratory failure with hypoxia ([facility]) 12/10/2017 - Present D Atrial fibrillation ([facility]) 09/23/2010 - Present E CAD (coronary artery disease) Unknown - Present F COPD (chronic obstructive pulmonary disease) ([facility]) Unknown - Present G Elevated troponin 12/10/2017 - Present H Uncontrolled type 2 diabetes mellitus with stage 3 chronic kidney disease, with long-term current use of insulin ([facility]) 09/23/2004 - Present I HOCM (hypertrophic obstructive cardiomyopathy) ([facility]) Unknown - Present J Hyperkalemia 01/20/2018 - Present Hyponatremia 01/20/2018 - Present K GERD (gastroesophageal reflux disease) Unknown - Present L Sleep apnea Unknown - Present M Essential hypertension Unknown - Present Obesity 2010 - Present Plan of care discussed with: Patient and RN SIGNATURE: Micha Nesbitt MD PATIENT NAME: Luz Baca DATE: January 21, 2018 TIME: 3:29 PM PAGER/CONTACT #: CONSULT Observed: 01/21/2018 Status: COMPLETED Source: [place] 11:57 AM [facility] OTHER CAMPUS REPOSITORY O ID: [id number] Author: Mauro Ramírez Service: Cardiovascular Medicine Author Type: Physician Type: Consults Filed: 01/21/2018 1:06 PM Note Text: CONSULT: CARDIOLOGY SERVICE SERVICE DATE: 01/21/2018 SERVICE TIME: 11:57 AM CONSULTING PHYSICIAN: Mauro Ramírez MD PCP: Jameson Kamara MD ATTENDING: Micha Nesbitt MD REASON FOR CONSULT: COPD (chronic obstructive pulmonary disease) ([facility]) [J44.9] HISTORY OF PRESENT ILLNESS: Ms. Baca is a 77 year old female with history of HOCM s/p myomectomy, paroxysmal atrial fibrillation and coronary artery disease with multiple stents as well as a defibrillator/pacer and hypertension and hyperlipidemia and diabetes and CHF and COPD. now presenting with SOB for last 4 days and intermittent sharp chest discomfort in her mid sternal area that happen every so often since last night, similar to previous COPD/CHF problems. She has increased leg swelling and diffuse swelling and worse breathing when trying to lie flat or get up and exerted herself as well. No palpitations or fainting present. No cough, fever, headache She is usually on 2 L nasal cannula. She denies hemoptysis. She has no high fevers or chills. She does take an oral anticoagulant and she takes Lasix / spironolactone.. PAST MEDICAL HISTORY Diagnosis Date - Arthritis - Atrial fibrillation ([facility]) - CAD (coronary artery disease) stents x9, defibrillator, CABG. Seeing Dr. Cardona - Cardiac defibrillator in place - Cardiomegaly - Carotid artery disease ([facility]) left - CKD (chronic kidney disease), stage IV ([facility]) Dr. Martin - COPD (chronic obstructive pulmonary disease) ([facility]) Dr. Cruz - Depression - Diabetes ([facility]) - Diabetic neuropathy ([facility]) - GERD (gastroesophageal reflux disease) - Gout - HH (hiatus hernia) - HH (hiatus hernia) - HOCM (hypertrophic obstructive cardiomyopathy) ([facility]) - HTN (hypertension) - Hyperlipidemia - Morbid obesity with BMI of 40.0-44.9, adult ([facility]) - Pacemaker - Pneumonia h/o pneumonia/bronchitis - Renal insufficiency 2003 post op - Sleep apnea 2011 not on CPAP, unable to tolerate mask 02/2017 - SVT (supraventricular tachycardia) ([facility]) NSVT and questionable VT in 2003 post op PAST SURGICAL HISTORY Procedure Laterality Date - PAST SURGICAL HISTORY OF 07/18/2004 Septal myectomy and CABG x2 (DEBORAH-LAD, SVG-PDA). - PAST SURGICAL HISTORY OF left breast nodule removed - PAST SURGICAL HISTORY OF hysterectomy - PAST SURGICAL HISTORY OF perianal abscess drained - PAST SURGICAL HISTORY OF cholecystectomy - PAST SURGICAL HISTORY OF skin lesions removed FAMILY HISTORY Problem Relation Age of Onset - Hypertension Mother living at age 93, HTN - Heart Failure Mother [place] - Cancer Father age 71, lung cancer Social History Substance Use Topics - Smoking status: Former Smoker Packs/day: 2.50 Years: 43.00 Types: Cigarettes Start date: 1961 Quit date: 07/07/2004 - Smokeless tobacco: Never Used - Alcohol use No Prior to Admission Medications Prescriptions Last Dose Informant Patient Reported? Taking? OXYGEN, HOME THERAPY, Yes No Sig: Inhale 2.5 L/min as instructed continuous. 3 L/min when leaves home. albuterol (PROVENTIL) 5 mg/mL nebu No No Sig: Inhale 0.5 mL as instructed one time only for 1 dose. 1 DOSE NOW - BACK OFFICE. PLACE 0.5 ML PER DROPPER AND 2.5 ML OF NORMAL SALINE INTO RESERVOIR. albuterol HFA (VENTOLIN HFA) 90 mcg/actuation inhaler 01/19/2018 at 8pm No Yes Sig: Inhale 2 Puffs as instructed every 4 hours as needed. apixaban (ELIQUIS) 5 mg tab(s) 01/20/2018 at 8am Yes No Sig: Take 5 mg by mouth twice daily. furosemide (LASIX) 40 mg tablet 01/20/2018 at 3pm No No Sig: Take 1.5 tablets by mouth twice daily. gabapentin (NEURONTIN) 300 mg capsule No No Sig: Take 2 capsules by mouth three times daily for 30 days. Patient taking differently: Take 600 mg by mouth twice daily. guaiFENesin-dextromethorphan (ROBITUSSIN DM) 100-10 mg/5 mL syrup No No Sig: Take 5-10 mL by mouth every 6 hours as needed for Cough. insulin aspart U-100 (NOVOLOG FLEXPEN U-100 INSULIN) 100 unit/mL inpn No No Sig: Inject 10 Units subcutaneously three times daily with meals. insulin glargine (LANTUS SOLOSTAR U-100 INSULIN) 100 unit/mL (3 mL) inpn No No Sig: Inject 45 Units subcutaneously every morning. insulin glargine (LANTUS SOLOSTAR U-100 INSULIN) 100 unit/mL (3 mL) inpn No No Sig: Inject 30 Units subcutaneously daily at bedtime. ipratropium-albuterol (DUONEB) 0.5 mg-3 mg(2.5 mg base)/3 mL nebu No No Sig: Inhale 3 mL as instructed every 4 hours as needed. isosorbide mononitrate ER (IMDUR) 60 mg 24 hr tablet 01/20/2018 at 8 am No No Sig: Take 1 tablet by mouth once daily. nitroglycerin sublingual (NITROQUICK) 0.4 mg SL tablet No No Sig: Dissolve 1 tablet under the tongue every 5 minutes as needed. pantoprazole DR (PROTONIX) 40 mg tablet 01/20/2018 at 8am No Yes Sig: Take 1 tablet by mouth twice daily. potassium chloride ER (K-DUR, KLOR-CON) 10 mEq tablet No No Sig: TAKE ONE TABLET BY MOUTH DAILY WITH BREAKFAST simvastatin (ZOCOR) 40 mg tablet 01/20/2018 at 8am Yes No Sig: Take 40 mg by mouth every morning. spironolactone (ALDACTONE) 25 mg tablet 01/20/2018 at 8am No No Sig: Take 1 tablet by mouth once daily. Facility-Administered Medications: None Current hospital medications: insulin glargine 40 Units injection (long acting) (LANTUS) 40 Units SUBCUTANEOUS AT BEDTIME insulin glargine 60 Units injection (long acting) (LANTUS) 60 Units SUBCUTANEOUS DAILY (8 AM) insulin lispro 24 Units injection (rapid acting) (HumaLOG) 24 Units SUBCUTANEOUS TID w MEALS dextrose 40 % 15 g 15 g ORAL PRN glucagon 1 mg injection (GLUCAGEN) 1 mg INTRAMUSCULAR PRN dextrose 50% in water 25 mL syringe 12.5 g INTRAVENOUS PRN gabapentin 600 mg cap(s) (NEURONTIN) 600 mg ORAL BID simvastatin 40 mg tab(s) (ZOCOR) 40 mg ORAL DAILY ipratropium-albuterol 3 mL nebulizer solution (DUONEB) 3 mL INHALATION q 4 H while awake apixaban 5 mg tab(s) (ELIQUIS) 5 mg ORAL BID spironolactone 25 mg tab(s) (ALDACTONE) 25 mg ORAL DAILY pantoprazole DR 40 mg tab(s) (PROTONIX) 40 mg ORAL BID isosorbide mononitrate ER 60 mg tab(s) (IMDUR) 60 mg ORAL DAILY nitroglycerin sublingual 0.4 mg tab(s) (NITROQUICK) 0.4 mg SUBLINGUAL q 5 MIN PRN furosemide 80 mg injection (LASIX) 80 mg INTRAVENOUS q 12 H 6a/6p budesonide 0.5 mg/2 mL 0.5 mg (PULMICORT) 0.5 mg INHALATION BID metroNIDAZOLE 500 mg tab(s) (FLAGYL) 500 mg ORAL q 8 H albuterol 2.5 mg /3 mL (0.083 %) 2.5 mg (PROVENTIL) 2.5 mg INHALATION q 4 H PRN ALLERGIES Allergen Reactions - Aspirin Anaphylaxis sts that she bled out every orifice, sts not allowed to take it at all. - Bactrim [Sulfametho* Other: See Comments My throat swells up. - Latex Rash, Itching Itching and welts. No wheezing or shortness of breath. - Penicillins Rash, Itching Tolerated ceftriaxone during 11/2017 admission and cefepime during 12/2017 admission - Tetracycline Rash, GI Upset Emesis and diarrhea. - Atorvastatin Rash - Codeine Other: See Comments Numbness - Dilaudid [Hydromorp* Mental Status Change - Meperidine - Pentazocine - Pioglitazone Unknown - Propoxyphene REVIEW OF SYSTEMS: SYSTEMIC: No fever, chills, or change in weight or appetite HEENT: No recent change in vision or hearing. Respiratory: No hemoptysis, cough. Moderate exertional SOB is present CARDIOVASCULAR: See HPI. GI: No recent nausea, vomiting or diarrhea. : No recent hematuria or dysuria. SKIN: No recent itching or eruption. PSYCH: No recent active anxiety or depression. HEMATOLOGY/ONCOLOGY: No recent diagnosis of bleeding or cancer. ENDOCRINE: No recent polyuria or heat intolerance. NEURO: No recent TIA, stroke or seizures. RHEUMATOLOGY: No recent active connective tissue disease. REST OF THE REVIEW OF SYSTEMS IS UNREMARKABLE Objective PHYSICAL EXAM: Patient Vitals for the past 24 hrs: BP Temp Temp src Pulse Resp SpO2 Height Weight 01/21/18 1144 125/58 36.3 ?C (97.3 ?F) Oral 61 18 96 % - - 01/21/18 1130 - - - 68 18 - - - 01/21/18 1120 - - - 66 20 99 % - - 01/21/18 0909 134/56 36.5 ?C (97.7 ?F) Oral 64 18 100 % - - 01/21/18 0742 108/70 36.4 ?C (97.5 ?F) Oral 65 18 98 % - - 01/21/18 0644 - - - 60 18 - - 103.9 kg (229 lb 0.3 oz) 01/21/18 0627 - - - 60 18 100 % - - 01/21/18 0405 122/53 36.3 ?C (97.3 ?F) Axillary 66 16 97 % - - 01/20/18 2354 - - - 63 18 - - - 01/20/18 2347 - - - 60 18 98 % - - 01/20/18 2314 121/52 36.3 ?C (97.3 ?F) Oral 60 16 97 % - - 01/20/18 2117 133/54 36.6 ?C (97.9 ?F) Oral 62 17 98 % - 104 kg (229 lb 3.2 oz) 01/20/18 2019 153/54 37.1 ?C (98.8 ?F) Oral (!) 128 16 97 % - - 01/20/18 1853 - - - 64 20 - - - 01/20/18 1842 - - - 62 20 97 % - - 01/20/18 1640 145/77 36.3 ?C (97.3 ?F) Oral 65 18 98 % 172.7 cm (5' 8) 105.4 kg (232 lb 4.8 oz) 01/20/18 1500 164/67 - - 72 18 95 % - - 01/20/18 1430 141/64 - - 70 18 96 % - - 01/20/18 1400 132/60 - - 72 19 96 % - - 01/20/18 1335 - - - 72 18 - - - 01/20/18 1327 166/70 - - 74 - - - - 01/20/18 1325 - - - 78 20 95 % - - 01/20/18 1323 166/70 - - 72 18 97 % - - 01/20/18 1253 153/66 - - 76 16 96 % - - 01/20/18 1230 147/67 36.6 ?C (97.8 ?F) Oral 75 16 94 % - 114.3 kg (252 lb) Body mass index is 34.82 kg/(m2). Intake/Output Summary (Last 24 hours) at 01/21/18 1157 Last data filed at 01/21/18 1007 Gross per 24 hour Intake 840 ml Output 3151 ml Net -2311 ml General: Pt is able to communicate. Patient is not in acute respiratory distress. SKIN: No rash or lumps. Hyperpigmentation is noted on the lower legs from chronic venous stasis Eyes. Pupils are round and accommodative to light. HEENT: Normocephalic, face symmetrical. Normal pinna. Throat is without congestion. NECK: Supple, no JVD, no carotid bruit, no thyromegaly. LUNGS: Clear to auscultation bilaterally. Pacemaker site is well healed over the left pectoral area CARDIAC: Normal S1 and S2, grade 2 over 6 left sternal border systolic murmur. ABDOMEN: Soft, nontender, bowel sounds present. EXTREMITIES: No cyanosis, clubbing, mild ankle and leg edema. PULSES: Peripheral pulses are decreased in Dorsalis pedis and Posterior tibial arteries bilaterally. NEURO: Non-focal. Awake, alert and oriented. Moves all extremities. MUSCULOSKELETAL: No fracture or dislocation of the bones or joints. Recent Labs 01/21/18 0543 01/20/18 2158 01/20/18 1250 CK -- -- -- -- 37* TROPT -- -- 0.050* < > -- WBC -- -- -- -- 8.64 RBC -- -- -- -- 4.06 HB -- -- -- -- 12.5 HCT -- -- -- -- 38.8 MCV -- -- -- -- 95.6 MCH -- -- -- -- 30.8 MCHC -- -- -- -- 32.2 RDWCV -- -- -- -- 14.8 PLT -- -- -- -- 138* GLUC 274* < > -- < > 832* BUN 42* -- -- < > 38* CREAT 1.49* -- -- < > 1.40* NA 138 -- -- < > 126* K 4.7 -- -- < > 5.2* CHLOR 89* -- -- < > 85* CO2 36* -- -- < > 31* TPROT -- -- -- -- 6.4 ALB -- -- -- -- 3.3* CA 9.4 -- -- < > 8.9 ALKPHOS -- -- -- -- 157* TBILI -- -- -- -- 0.5 AST -- -- -- -- 13 ALT -- -- -- -- 24 PTSEC -- -- -- -- 10.6 APTT -- -- -- -- 25.7 INR -- -- -- -- 1.0 MG 2.1 -- -- -- 2.1 < > = values in this interval not displayed. Last Lab Drawn: TSH 1.300 2010 NT Pro BNP 2145 01/20/2018 Triglyceride 137 05/17/2017 HDL Cholesterol 34 05/17/2017 LDL Cholesterol 84 05/17/2017 Cholesterol, Total 145 05/17/2017 Diagnostic tests reviewed Most recent imaging results reviewed. EKG / Telemetry reviewed. Ventricular paced rhythm with sensed PVCs Exam indication: s/p myectomy - The left ventricle is normal in size. There is mild left ventricular hypertrophy. Left ventricular systolic function is mildly decreased. EF = 50 ? 5% (visual est.) Grade III left ventricular diastolic dysfunction. - The right ventricle is dilated. Right ventricular systolic function is mildly decreased. - The left atrial cavity is moderately dilated. - The right atrial cavity is dilated. - There is moderate (2+ - 3+) tricuspid valve regurgitation. - Estimated right ventricular systolic pressure is 78 mmHg consistent with moderately severe pulmonary hypertension. Estimated right atrial pressure is 10 mmHg. - s/p myectomy: LVOT gradient at rest 6 mmHg, trivial-1+ MR. Patient unable to valsalva. Impression/Recommendations Patient Active Hospital Problem List: Acute on chronic respiratory failure with hypoxia ([facility]) (12/10/2017) Acute on chronic combined systolic and diastolic CHF (congestive heart failure) ([facility]) (12/10/2017) HOCM (hypertrophic obstructive cardiomyopathy) ([facility]) () CAD (coronary artery disease) () Essential hypertension () COPD (chronic obstructive pulmonary disease) ([facility]) () Sleep apnea () GERD (gastroesophageal reflux disease) () Atrial fibrillation ([facility]) (09/23/2010) Uncontrolled type 2 diabetes mellitus with stage 3 chronic kidney disease, with long-term current use of insulin ([facility]) (09/23/2004) Obesity (2010) Elevated troponin (12/10/2017) Hyponatremia (01/20/2018) Hyperkalemia (01/20/2018) Her shortness of breath is multifactorial most likely related to her obesity deconditioning diastolic dysfunction, restrictive lung disease and possibly paroxysmal atrial fibrillation She will be given diuretics with Lasix 80 mg twice daily. She has had good response with it overnight with more than 2-1/2 L of diuresis and her shortness of breath has started to get better significantly We will continue oral anticoagulation with Apixaban in view of her paroxysmal atrial fibrillation As an outpatient she may be a candidate for right heart catheterization to assess her for primary pulmonary artery hypertension. D/W Dr Ortiz on the floor. SIGNATURE: Mauro Ramírez MD [facility] PATIENT NAME: Luz Baca DATE: January 21, 2018 TIME: 11:57 AM Cell phone #: [phone] PROGRESS Observed: 01/21/2018 Status: COMPLETED Source: [place] 11:23 AM [facility] [place] REPOSITORY HNO ID: [id number] Author: Remi Briseno) Brent Service: (none) Author Type: Registered Nurse Type: Progress Notes Filed: 01/21/2018 12:01 PM Note Text: PRIMARY CARE COORDINATION SBAR PCC HAND IN Luz Baca, 77 year old female SITUATION: Pt has had multiple readmissions due to COPD and CHF. Blood sugars have been difficult to control due to steroids. Pt had been seeing PharmD at [place]. Pt has followed closely with PCP, Pulmonology and Cardiology BACKGROUND: Living arrangements: Lives with Octavia griffin Contact Name and phone number: Octavia Soliman [phone] Health Manager Managed Backup Services: Family Member: Octavia griffin Oxygen provider: Stevie [facility], [facility] [phone] Self Care/ADLs: Needs assistance with: ADL, including personal care, cooking, cleaning and medications Mobility: Ambulates with Wheeled walker, uses wheelchair for MD visits Wheelchair bound Fall risk: Yes: due to decreased sensation in feet and weakness Barriers to care/Adherence: Financial Health literacy with both patient and daughter ASSESSMENT: Functional: Patient is very dependent on daughter who is attentive Psychosocial: Daughter just moved pt up from [facility] this year Medical: Pt is very complex, sees multiple specialists, including Dr. Cruz Pulmonary, Dr. Cardona Cardiology, Dr. Hogan Vascular Surgery and Dr. Rodriguez Podiatry Pt has been seeing [place] [facility] D, Li Doyle RECOMMENDATIONS: Patient manages at home with assist of daughter and home health nurse. Daughter has health literacy issues and doesn't always respond to PCP in a timely manner. Daughter's health literacy has improved with continued re-instruction Name of Welding Machine Operator [employer]: Remi Kennedy RN [facility] or [facility] office: [place] Department: Family Medicine Phone number: [phone] E-mail address: [phone] Remi Kennedy RN January 21, 2018 11:57 AM NURSING PROG Observed: 01/21/2018 Status: COMPLETED Source: [place] 10:37 AM [facility] REPOSITORY HNO ID: [id number] Author: Mandy (Rn) ALLYSON Valdez Service: (none) Author Type: Registered Nurse Type: Nursing Progress Note Filed: 01/21/2018 11:15 AM Note Text: Nursing Progress Note Patient Name: Luz Baca Patient Location: [id number] Daily Note: Alert and oriented x3 with clear speech. Sitting up to chair and now in bed with minimal one assist. O2 NC intact. [place]son clear yellow urine with IV lasix per order. 2+ edema BLE with vascular discoloration. Lungs faint crackles bases, upper clear. Telemonitor intact with reports of on and off chest discomfort which she has had since admission. Dr Ramírez and Dr Ortiz on consult. Accuchecks with insulin per order. Dr Bowman notified of glucose 354 with additional 15 units humalog given. This note was completed by: Mandy Valdez RN CONSULT Observed: 01/21/2018 Status: COMPLETED Source: [place] 9:02 AM [facility] REPOSITORY HNO ID: [id number] Author: Krishan Irwin Rai Service: Pulmonary Disease Author Type: Physician Type: Consults Filed: 01/21/2018 2:16 PM Note Text: [facility] IN[facility]IAL CONSULTATION NOTE Patient Name: Luz Baca? ? REASON FOR CONSULT: Shortness of breath REQUESTING PHYSICIAN: Micha Nesbitt MD? 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 We will follow the patient along with you. Case discussed in detail with the patient, RN and primary and cardiology attendings. Patient verbalizes understanding and is in agreement with current management plan. Krishan Irwin Rai, MD CHIEF COMPLAINT: Shortness of breath HISTORY OF PRESENT ILLNESS: Luz Baca is a 77 year old female, former [id number] smoker quit in 2003 Ht 172.7 cm (5' 8) BMI 34.82 kg/m2, with a PMH significant for CAD s/p CABGx3 (2003), PCI with multiple stents, HOCM s/p myomectomy (2003), NSVT, Atrial Fibrillilation, s/p ICD placement, chronic bronchitis (PFT 11/12/2017 - FEV1/ FVC 80, FEV1 930 cc, 37% pred, FVC 1.15L 35% pred, DLCO 42% pred, normalizes when corrected for volume), CKD, obesity, DM2, HPL, MARLA - not using CPAP, HTN and Depression. She has chronic hypoxemic respiratory failure and is on 2.5 LPM home O2. Patient follows with Dr. Donnell Cruz in pulmonary clinic as outpatient. Patient has been using Symbicort, Spiriva, DuoNeb and PRN Albuterol as outpatient. She was instructed to stop Symbicort and Spiriva. Patient's KM with pulmonary clinic was on 01/07/2018 when she saw Mandy Adkins PA-C (plans for referral to pulmonary hypertension clinic at [facility]). ECHO done 12/21/2017 shows grade III diastolic dysfunction, LVEF 50%, severe hypokinesis of basal anterior septal segment. RVSP elevated at 78 mmHg, RAP 10 mmHg, LA moderately dilated. IVC 2.5 cm and decreases <50% with inspiration. 1+ MR. 3+ TR. Patient's diuretic dose was increased recently to 60 mg Lasix twice a day in addition to Aldactone 20 mg daily. She was seen in cardiology clinic by Dr. Aren Gonzalez on 01/18/2018. Patient was admitted to [facility] on 01/20/2018 with c/o worsening shortness of breath and lower leg swelling. Pulmonary and cardiology teams are being consulted for further evaluation and management. Currently patient is saturating 99% on [address] scan chest and 12/10/2017 shows left lower lung pleural thickening with multiple calcifications. Linear densities right and left lungs consistent with atelectasis. Laney find granulomas. No mediastinal lymphadenopathy. Cardiomegaly. PAST MEDICAL HISTORY Diagnosis Date - Arthritis - Atrial fibrillation ([facility]) - CAD (coronary artery disease) stents x9, defibrillator, CABG. Seeing Dr. Cardona - Cardiac defibrillator in place - Cardiomegaly - Carotid artery disease ([facility]) left - CKD (chronic kidney disease), stage IV ([facility]) Dr. Martin - COPD (chronic obstructive pulmonary disease) ([facility]) Dr. Cruz - Depression - Diabetes ([facility]) - Diabetic neuropathy ([facility]) - GERD (gastroesophageal reflux disease) - Gout - HH (hiatus hernia) - HH (hiatus hernia) - HOCM (hypertrophic obstructive cardiomyopathy) ([facility]) - HTN (hypertension) - Hyperlipidemia - Morbid obesity with BMI of 40.0-44.9, adult ([facility]) - Pacemaker - Pneumonia h/o pneumonia/bronchitis - Renal insufficiency 2003 post op - Sleep apnea 2011 not on CPAP, unable to tolerate mask 02/2017 - SVT (supraventricular tachycardia) ([facility]) NSVT and questionable VT in 2003 post op PAST SURGICAL HISTORY Procedure Laterality Date - PAST SURGICAL HISTORY OF 07/18/2004 Septal myectomy and CABG x2 (DEBORAH-LAD, SVG-PDA). - PAST SURGICAL HISTORY OF left breast nodule removed - PAST SURGICAL HISTORY OF hysterectomy - PAST SURGICAL HISTORY OF perianal abscess drained - PAST SURGICAL HISTORY OF cholecystectomy - PAST SURGICAL HISTORY OF skin lesions removed FAMILY HISTORY Problem Relation Age of Onset - Hypertension Mother living at age 93, HTN - Heart Failure Mother [place] - Cancer Father age 71, lung cancer Social History Substance Use Topics - Smoking status: Former Smoker Packs/day: 2.50 Years: 43.00 Types: Cigarettes Start date: 1961 Quit date: 07/07/2004 - Smokeless tobacco: Never Used - Alcohol use No ALLERGIES: ALLERGIES Allergen Reactions - Aspirin Anaphylaxis sts that she bled out every orifice, sts not allowed to take it at all. - Bactrim [Sulfametho* Other: See Comments My throat swells up. - Latex Rash, Itching Itching and welts. No wheezing or shortness of breath. - Penicillins Rash, Itching Tolerated ceftriaxone during 11/2017 admission and cefepime during 12/2017 admission - Tetracycline Rash, GI Upset Emesis and diarrhea. - Atorvastatin Rash - Codeine Other: See Comments Numbness - Dilaudid [Hydromorp* Mental Status Change - Meperidine - Pentazocine - Pioglitazone Unknown - Propoxyphene CURRENT OUTPATIENT MEDICATIONS: pantoprazole DR (PROTONIX) 40 mg tablet Take 1 tablet by mouth twice daily. albuterol HFA (VENTOLIN HFA) 90 mcg/actuation inhaler Inhale 2 Puffs as instructed every 4 hours as needed. furosemide (LASIX) 40 mg tablet Take 1.5 tablets by mouth twice daily. isosorbide mononitrate ER (IMDUR) 60 mg 24 hr tablet Take 1 tablet by mouth once daily. insulin aspart U-100 (NOVOLOG FLEXPEN U-100 INSULIN) 100 unit/mL inpn Inject 10 Units subcutaneously three times daily with meals. insulin glargine (LANTUS SOLOSTAR U-100 INSULIN) 100 unit/mL (3 mL) inpn Inject 45 Units subcutaneously every morning. insulin glargine (LANTUS SOLOSTAR U-100 INSULIN) 100 unit/mL (3 mL) inpn Inject 30 Units subcutaneously daily at bedtime. potassium chloride ER (K-DUR, KLOR-CON) 10 mEq tablet TAKE ONE TABLET BY MOUTH DAILY WITH BREAKFAST apixaban (ELIQUIS) 5 mg tab(s) Take 5 mg by mouth twice daily. simvastatin (ZOCOR) 40 mg tablet Take 40 mg by mouth every morning. spironolactone (ALDACTONE) 25 mg tablet Take 1 tablet by mouth once daily. ipratropium-albuterol (DUONEB) 0.5 mg-3 mg(2.5 mg base)/3 mL nebu Inhale 3 mL as instructed every 4 hours as needed. guaiFENesin-dextromethorphan (ROBITUSSIN DM) 100-10 mg/5 mL syrup Take 5-10 mL by mouth every 6 hours as needed for Cough. albuterol (PROVENTIL) 5 mg/mL nebu Inhale 0.5 mL as instructed one time only for 1 dose. 1 DOSE NOW - BACK OFFICE. PLACE 0.5 ML PER DROPPER AND 2.5 ML OF NORMAL SALINE INTO RESERVOIR. nitroglycerin sublingual (NITROQUICK) 0.4 mg SL tablet Dissolve 1 tablet under the tongue every 5 minutes as needed. gabapentin (NEURONTIN) 300 mg capsule Take 2 capsules by mouth three times daily for 30 days. OXYGEN, HOME THERAPY, Inhale 2.5 L/min as instructed continuous. 3 L/min when leaves home. REVIEW OF SYSTEMS: Constitutional:WELL DEVELOPED and NO EVIDENCE OF ACUTE DISTRESS HEENT:Negative for frequent or significant headaches, No changes in hearing or vision, no nose bleeds or other nasal problems, SEE HPI RESPIRATORY: See HPI CARDIOVASCULAR: See HPI GASTROINTESTINAL: See HPI and Negative for abdominal discomfort, blood in stools or black stools or change in bowel habits GENITOURINARY: No history of dysuria, frequency or incontinence, See HPI MUSCULOSKELETAL: See HPI, Negative for joint pain or swelling, back pain. NEUROLOGIC: Negative for focal neurological deficits, dizziness or syncope. SKIN: Negative for lesions, rash, and itching. HEMATOLOGIC/LYMPHATIC/IMMUNOLOGIC: No easy bruising or swollen glands. ENDOCRINE: See HPI The remainder of the ROS were reviewed and negative. Patient Vitals for the past 24 hrs: BP Temp Temp src Pulse Resp SpO2 Height Weight 01/21/18 0742 108/70 36.4 ?C (97.5 ?F) Oral 65 18 98 % - - 01/21/18 0644 - - - 60 18 - - 103.9 kg (229 lb 0.3 oz) 01/21/18 0627 - - - 60 18 100 % - - 01/21/18 0405 122/53 36.3 ?C (97.3 ?F) Axillary 66 16 97 % - - 01/20/18 2354 - - - 63 18 - - - 01/20/18 2347 - - - 60 18 98 % - - 01/20/18 2314 121/52 36.3 ?C (97.3 ?F) Oral 60 16 97 % - - 01/20/18 2117 133/54 36.6 ?C (97.9 ?F) Oral 62 17 98 % - 104 kg (229 lb 3.2 oz) 01/20/182018 153/54 37.1 ?C (98.8 ?F) Oral (!) 128 16 97 % - - 01/20/18 1853 - - - 64 20 - - - 01/20/18 1842 - - - 62 20 97 % - - 01/20/18 1640 145/77 36.3 ?C (97.3 ?F) Oral 65 18 98 % 172.7 cm (5' 8) 105.4 kg (232 lb 4.8 oz) 01/20/18 1500 164/67 - - 72 18 95 % - - 01/20/18 1430 141/64 - - 70 18 96 % - - 01/20/18 1400 132/60 - - 72 19 96 % - - 01/20/18 1335 - - - 72 18 - - - 01/20/18 1327 166/70 - - 74 - - - - 01/20/18 1325 - - - 78 20 95 % - - 01/20/18 1323 166/70 - - 72 18 97 % - - 01/20/18 1253 153/66 - - 76 16 96 % - - 01/20/18 1230 147/67 36.6 ?C (97.8 ?F) Oral 75 16 94 % - 114.3 kg (252 lb) Intake/Output Summary (Last 24 hours) at 01/21/18 0903 Last data filed at 01/21/18 0600 Gross per 24 hour Intake 600 ml Output 3151 ml Net -2551 ml PHYSICAL EXAMINATION: VITAL SIGNS: BP 108/70 Pulse 65 Temp (Src) 97.5 (Oral) Resp 18 Ht 5' 8 (1.73m) Wt 229 lb 0.3 oz (103.9kg) SpO2 98% BMI 34.83 kg/(m2). General appearance: Obese, well appearing, alert, in no acute distress Skin: skin color, texture, turgor normal, no rashes or lesions Eyes: Anicteric sclera. Pupils are equally round and reactive to light. ENT:: Moist oral mucosa Heme/Lymph:: Supple, no adenopathy Lungs: Good air entry bilateral lungs. No wheezing or crackles. Heart: RRR without murmur, gallop, or rubs. GI: Abdomen soft, non-tender. Musculoskeletal:: Bilateral lower extremity edema. Chronic skin discoloration lower legs. No clubbing. Neuro: Oriented X 3 DATA: Diagnostic tests reviewed for today's visit, films/specimens were personally reviewed by me: Most recent labs and imaging results. LAB RESULTS: CBC, Coags, BMP, Mg, Phos Recent Labs 01/21/18 0543 01/21/18 0204 01/20/18 2309 01/20/18 1526 01/20/18 1250 WBC -- -- -- -- -- 8.64 HB -- -- -- -- -- 12.5 HCT -- -- -- -- -- 38.8 PLT -- -- -- -- -- 138* INR -- -- -- -- -- 1.0 APTT -- -- -- -- -- 25.7 NA 138 -- -- -- 126* 126* K 4.7 -- -- -- 5.2* 5.2* CHLOR 89* -- -- -- 84* 85* CO2 36* -- -- -- 30 31* BUN 42* -- -- -- 39* 38* CREAT 1.49* -- -- -- 1.36* 1.40* GLUC 274* 484* 672* < > 825* 832* CA 9.4 -- -- -- 8.7 8.9 MG 2.1 -- -- -- -- 2.1 < > = values in this interval not displayed. Liver Function, Amylase, AND Lipase Recent Labs 01/20/18 1250 TPROT 6.4 ALB 3.3* ALT 24 AST 13 ALKPHOS 157* TBILI 0.5 Cardiac Enzymes Recent Labs 01/20/18 2158 01/20/18 1734 01/20/18 1302 01/20/18 1250 CK -- -- -- 37* MB -- -- -- 5.8* TROPT 0.050* 0.051* 0.068* -- ABGs CXR: 01/20/2018: IMPRESSION: No significant change in the left basilar airspace disease when compared to prior remote studies. Findings likely represent chronic pleural reaction and fibrotic scarring.. Lines, tubes, and devices: ?None. The pacemaker is unchanged and satisfactory in position. Monitor leads overlie the chest Lungs and pleura: ?Poor visualization of the left mid and lower lung with some persistent left basilar infiltrate/atelectasis and possibly pleural fluid, not significantly changed from July 2017 and back to 2009 Cardiomediastinal silhouette: ?There is calcification and tortuosity of the thoracic aorta and enlargement of the cardiac silhouette with post median sternotomy changes, stable Other: ?The visualized bony structures are intact CT Chest: 12/10/2017: IMPRESSION: Linear densities RIGHT middle lobe and LEFT lung base consistent with atelectasis and/or fibrosis. ?Nonspecific groundglass airspace disease posterior RIGHT lower lobe base. ?Follow-up is recommended. Left pleural thickening with calcific a cyst. ?This may be due to remote hemothorax. Cardiomegaly ECHO: 12/21/2017: CONCLUSIONS: - Technically difficult exam due to body habitus and COPD. - Exam indication: s/p myectomy - The left ventricle is normal in size. There is mild left ventricular hypertrophy. Left ventricular systolic function is mildly decreased. EF = 50 ? 5% (visual est.) Grade III left ventricular diastolic dysfunction. - The right ventricle is dilated. Right ventricular systolic function is mildly decreased. - The left atrial cavity is moderately dilated. - The right atrial cavity is dilated. - There is moderate (2+ - 3+) tricuspid valve regurgitation. - Estimated right ventricular systolic pressure is 78 mmHg consistent with moderately severe pulmonary hypertension. Estimated right atrial pressure is 10 mmHg. - Definity contrast could not be administered d/t unavailability of staff. - s/p myectomy: LVOT gradient at rest 6 mmHg, trivial-1+ MR. Patient unable to valsalva. - Exam was compared with the prior echocardiographic exam performed on 09/23/2010. LV function is normal on this study, and the patient appears to be in NSR (was in AF with RVR on prior study) PFT: 11/12/2017: IMPRESSION: Spirometry shows no obstruction. The reduced FVC suggests very severe restriction. ? Recommend lung volumes if clinically indicated. The diffusing capacity is severely reduced. The presence of a reduced DLCO that normalizes when corrected for volume is consistent with a non-parenchymal disorder but does not rule out parenchymal or pulmonary vascular disease. The diffusing capacity corrected for volume is normal. Spirometry ?Hb: ?gm/dL ?Ref ? Pre ? Pre ? Post ?Post ?Post ?Urban ?% Ref ? ? ? Urban ?% Ref ? ? ? % Chg FVC ?Liters ? ? ?3.29 ?1.15 ?35 FEV1 ? ? ? Liters ? ? ?2.48 ?0.93 ?37 FEV1/FVC ? % ? 75 ?80 OXX16-22% ?L/sec ? ? ? 1.85 ?0.92 ?49 [id number] L/sec ? ? ?2.35 ?0.92 ?39 PEF ?L/sec ? ? ? 5.81 ?3.23 ?56 UPW343% ? ?Sec ? 6.50 MVV ?L/min ? ? ? 99 f ?BPM ? Lung Volumes TLC ?Liters ? ? ?5.67 VC ? Liters ? ? ?3.29 IC ? Liters ? ? ?2.15 FRC N2 ? ? Liters ? ? ?3.28 ERV ?Liters ? ? ?1.08 RV ? Liters ? ? ?2.51 RV/TLC ? ? % ? 46 ? Diffusing Capacity DLCO ? ? ? mL/mmHg/min 21.5 ?9.0 ? 42 DL Adj ? ? mL/mmHg/min 21.5 ?9.0 ? 42 DLCO/VA ? ?mL/mHg/min/L 4.01 ? ? ? 4.10 ?102 DL/VA Adj ?mL/mHg/min/L 4.01 ? ? ? 4.10 ?102 VA ? Liters ? ? ?5.35 ?2.19 ?41 IVC ?Liters ?1.26 ?109 BHT ?Sec ? 11.72 PFT: 07/16/2004: ? Pred ? LLN ? ?Pre ? ?%Pred ? Date ? 09/29/04 ? Time ? 04:00:36PM ? FVC ? ?3.22 ? 2.55 ? 2.37 ? ? 73 ? FEV 1 ?2.52 ? 1.96 ? 1.87 ? ? 74 ? Ratio ?77.4 ? 68.4 ? 79.2 ? ?102 ? 25-75% 2.39 ? 1.02 ? 1.65 ? ? 69 ? PEF ? ?5.85 ? 4.12 ? 4.88 ? ? 83 ? FEF 50 3.27 ? 2.09 ? 2.58 ? ? 79 ? FIF 50 ? 2.33 ? FE%FIF ? 111 ? FET ?8.76 Krishan Irwin Rai, MD Staff, Respiratory [facility] Pager #[phone] CASE MANAGEM Observed: 01/21/2018 Status: COMPLETED Source: [place] 8:41 AM [facility] CAMPUS REPOSITORY HNO ID: [id number] Author: Vanessa Loomis (Rn) ALLYSON Gonzalez Service: Case Management Author Type: Registered Nurse Type: Care Mgt Progress Note Filed: 01/21/2018 8:42 AM Note Text: CARE MANAGEMENT PROGRESS NOTE SERVICE DATE: 01/21/2018 SERVICE TIME: 8:41 AM LOS: 1 day EMR reviewed. Admit Dx chf exacerbation. On new 2L n/c chronic. From home with dtr (Octavia Soliman [phone]), active with [facility] SIGNATURE: Vanessa Gonzalez RN PATIENT NAME: Luz Baca DATE: January 21, 2018 TIME: 8:41 AM PAGER/CONTACT #: [phone] CONSULT Observed: 01/21/2018 Status: COMPLETED Source: [place] 6:47 AM [facility] REPOSITORY HNO ID: [id number] Author: Dina Bowman MD Service: Endocrinology Author Type: Physician Type: Consults Filed: 01/21/2018 7:12 AM Note Text: ENDOCRINOLOGY CONSULTATION DATE OF CONSULTATION: January 21, 2018 REASON FOR CONSULTATION: Diabetes with hyperglycemia IMPRESSION: Uncontrolled type 2 diabetes mellitus, insulin- requiring - had non-ketotic hyperosmolar syndrome last nite, now resolved RECOMMENDATION: ? Increase Lantus to 60 units qam, 40 units qhs ? Increase Humalog to 24 units qac ? Check glucose ac and 2 hours pc ? Call covering groundwater consultant if glucose is less than 80 mg/dL or greater than 210 mg/dL. ? Thank you for this kind consultation. HISTORY: 77 year-old female, patient of Dr. Lev Morales, who presented with dyspnea and increased swelling in legs. Lasix increased 01/06 with no change. Just finished a course of antibiotics and Prednisone recently. No nausea/vomiting, some diarrhea. Still has some coughing with eating but it trying to follow instructions from last visit. No f/c. Cough occ productive, clear sputum. No hemoptysis. No wheezing. Constant chest pressure. No palps, no dizziness. Never filled rx for h pylori from last visit. (+) glucose levels > 400 mg/dL. Glucose was > 800 mg/dL but improved with supplemental insulin and modest IV fluids. Says blood sugars running > 300 mg/dL at home. Checks glucose 5x daily, takes some supplemental Humalog Current Facility-Administered Medications: dextrose 40 % 15 g 15 g ORAL PRN Leandro Kauffman MD Or glucagon 1 mg injection (GLUCAGEN) 1 mg INTRAMUSCULAR PRN Leandro Kauffman MD Or dextrose 50% in water 25 mL syringe 12.5 g INTRAVENOUS PRN Leandro Kauffman MD gabapentin 600 mg cap(s) (NEURONTIN) 600 mg ORAL BID Russell Baldi 600 mg at 01/20/182137 simvastatin 40 mg tab(s) (ZOCOR) 40 mg ORAL DAILY Russell Baldi ipratropium-albuterol 3 mL nebulizer solution (DUONEB) 3 mL INHALATION q 4 H while awake Russell Baldi 3 mL at 01/21/18 06 apixaban 5 mg tab(s) (ELIQUIS) 5 mg ORAL BID Russell Baldi 5 mg at 01/20/182138 insulin lispro 10 Units injection (rapid acting) (HumaLOG) 10 Units SUBCUTANEOUS TID w MEALS Russell Baldi insulin glargine 45 Units injection (long acting) (LANTUS) 45 Units SUBCUTANEOUS DAILY (8 AM) Russell Baldi insulin glargine 30 Units injection (long acting) (LANTUS) 30 Units SUBCUTANEOUS AT BEDTIME Russell Baldi 30 Units at 01/20/18 2100 spironolactone 25 mg tab(s) (ALDACTONE) 25 mg ORAL DAILY Russell Baldi pantoprazole DR 40 mg tab(s) (PROTONIX) 40 mg ORAL BID Russell Baldi 40 mg at 01/21/18 0551 isosorbide mononitrate ER 60 mg tab(s) (IMDUR) 60 mg ORAL DAILY Russell Baldi nitroglycerin sublingual 0.4 mg tab(s) (NITROQUICK) 0.4 mg SUBLINGUAL q 5 MIN PRN Russell Baldi furosemide 80 mg injection (LASIX) 80 mg INTRAVENOUS q 12 H 6a/6p Russell Baldi 80 mg at 01/21/18 0551 insulin lispro injection (rapid acting) (HumaLOG) SUBCUTANEOUS w MEALS Russell Baldi budesonide 0.5 mg/2 mL 0.5 mg (PULMICORT) 0.5 mg INHALATION BID Russell Baldi 0.5 mg at 01/21/18 0626 metroNIDAZOLE 500 mg tab(s) (FLAGYL) 500 mg ORAL q 8 H Russell Baldi 500 mg at 01/21/18 0551 albuterol 2.5 mg /3 mL (0.083 %) 2.5 mg (PROVENTIL) 2.5 mg INHALATION q 4 H PRN Russell Baldi ALLERGIES Allergen Reactions - Aspirin Anaphylaxis sts that she bled out every orifice, sts not allowed to take it at all. - Bactrim [Sulfametho* Other: See Comments My throat swells up. - Latex Rash, Itching Itching and welts. No wheezing or shortness of breath. - Penicillins Rash, Itching Tolerated ceftriaxone during 11/2017 admission and cefepime during 12/2017 admission - Tetracycline Rash, GI Upset Emesis and diarrhea. - Atorvastatin Rash - Codeine Other: See Comments Numbness - Dilaudid [Hydromorp* Mental Status Change - Meperidine - Pentazocine - Pioglitazone Unknown - Propoxyphene PAST MEDICAL HISTORY Diagnosis Date - Arthritis - Atrial fibrillation (HCC) - CAD (coronary artery disease) stents x9, defibrillator, CABG. Seeing Dr. Cardona - Cardiac defibrillator in place - Cardiomegaly - Carotid artery disease (HCC) left - CKD (chronic kidney disease), stage IV (HCC) Dr. Martin - COPD (chronic obstructive pulmonary disease) ([facility]) Dr. Cruz - Depression - Diabetes ([facility]) - Diabetic neuropathy (HCC) - GERD (gastroesophageal reflux disease) - Gout - HH (hiatus hernia) - HOCM (hypertrophic obstructive cardiomyopathy) ([facility]) - HTN (hypertension) - Hyperlipidemia - Morbid obesity with BMI of 40.0-44.9, adult ([facility]) - Pacemaker - Pneumonia h/o pneumonia/bronchitis - Renal insufficiency 2003 post op - Sleep apnea 2011 not on CPAP, unable to tolerate mask 02/2017 - SVT (supraventricular tachycardia) ([facility]) NSVT and questionable VT in 2003 post op PAST SURGICAL HISTORY Procedure Laterality Date - PAST SURGICAL HISTORY OF 07/18/2004 Septal myectomy and CABG x2 (DEBORAH-LAD, SVG-PDA). - PAST SURGICAL HISTORY OF left breast nodule removed - PAST SURGICAL HISTORY OF hysterectomy - PAST SURGICAL HISTORY OF perianal abscess drained - PAST SURGICAL HISTORY OF cholecystectomy - PAST SURGICAL HISTORY OF skin lesions removed Social History Marital status: Spouse name: Years of education: Number of children: Social History Main Topics Smoking status: Former Smoker Packs/day: 2.50 Years: 43.00 Types: Cigarettes Start date: 1961 Quit date: 07/07/2004 Smokeless status: Never Used Alcohol use: No Drug use: No Other Topics Concern Caffeine Concern Yes Comment:coffee 1 cup daily Special Diet No Comment:Regular Exercise No Comment:no unable, due to SOB x several months. Social History Narrative Patient and daughter live together. FAMILY HISTORY Problem Relation Age of Onset - Hypertension Mother living at age 93, HTN - Heart Failure Mother [place] - Cancer Father age 71, lung cancer Review of systems: (+) recent hot grease burn on her chin. Patient notes no weight changes, fever, fatigue, weakness, change in balance or sensation, visual problems, hearing changes, dizziness, trouble swallowing, nasal difficulties, shortness of breath, chest pain, change in exertional tolerance, foot or leg problems, skin lesions, abdominal pain, diarrhea, constipation, urinary problems, incontinence, back pain, joint pains, anxiety, depression, insomnia, menstrual difficulties, breast lesions/pain/mass. Patient does report. Remainder of review of systems was unremarkable. BP 122/53 Pulse 60 Temp 36.3 ?C (97.3 ?F) (Axillary) Resp 18 Ht 172.7 cm (5' 8) Wt 104 kg (229 lb 3.2 oz) SpO2 100% BMI 34.85 kg/m2 General appearance: Well-appearing, obese (BMI greater than 30) septuagenarian female, alert, in no acute distress, well-hydrated, well nourished. Skin: Skin color, texture, turgor normal, (+) healing burn wound on chin Head: normocephalic, no masses, lesions, tenderness or abnormalities Eyes: Anicteric sclera. Pupils are equally round. Extraocular movements are intact. Ears: not examined Nose/Sinuses: Nares normal. No drainage or sinus tenderness. Oropharynx: Lips, mucosa, and tongue normal, teeth and gums not examined. Neck: Supple, no adenopathy; no visible thyroid enlargement. Lungs: Breathing unlabored. Heart: RRR. No ectopy Abdomen: deferred Extremities: No deformities, edema, (+) dependent rubor, clubbing or cyanosis. Good capillary refill. Musculoskeletal: Spine range of motion not tested. Muscular strength intact, No joint swelling, deformity, or tenderness Peripheral pulses: absent Neuro: Gait not observed. Sensation grossly intact. LAB DATA: Fingerstick glucose readings reviewed. Results for LUZ BACA ( ) 01/20/2018 15:26 01/20/2018 17:34 01/20/2018 20:46 Sodium 126 (L) Potassium 5.2 (H) Chloride 84 (L) CO2 30 BUN 39 (H) Creatinine 1.36 (H) Glucose 825 (H) 804 (H) 818 (H) Calcium 8.7 Anion Gap 12 Troponin T 0.051 (H) eGFR-All Other Races 38 B-Hydroxybutyrate 0.17 Hemoglobin A1C 12.3 (H) Dina Bowman MD [facility] Endocrinology [facility] Met[facility] [place] [facility] January 21, 2018 6:48 AM BASIC METABOLIC PANL Collected: 01/21/2018 Status: F Source: [place] 5:43 AM CLINIC OTHER CAMPUS REPOSITORY TYPE CODE TESTS RESULT OUT OF REFERENCE UNITS RANGE LAB GLU 74-99 mg/dL High Glucose 274 Result Comment: The [place] [employer] Association (ADA) provides guidance for cutoff values for fasting glucose and random glucose. The ADA defines fasting as no caloric intake for at least 8 hours. Fas ting plasma glucose results between 100 to 125 mg/dL indicate increased risk for diabetes (prediabetes). Fasting plasma glucose results greater than or equal to 126 mg/dL meet the criteria for diagnosis of diabetes. In the absence of unequivocal hyperglycemia, results should be confirmed by repeat testing. In a patient with classic symptoms of hyperglycemia or hyperglycemic crisis, random plasma glucose results greater than or equal to 200 mg/dL meet the criteria for diagnosis of diabetes. Reference: Standards of Medical Care in Diabetes 2016, [place] [employer] Association. Diabetes Care. 2016.39(Suppl 1). LAB BUN 7-21 mg/dL BUN High 42 LAB CRET 0.58-0.96 mg/dL Creatinine High 1.49 LAB NA 136-144 mmol/L Sodium 138 Result Comment: Rechecked LAB K 3.7-5.1 mmol/L Potassium 4.7 LAB CL 97-105 mmol/L Low Chloride 89 LAB CO2 22-30 mmol/L CO2 High 36 LAB AGAP 9-18 mmol/L Anion Gap 13 LAB CA 8.5-10.2 mg/dL Calcium, Total 9.4 LAB GFRAA eGFR- Amer. 41 LAB GFRNAA . eGFR-All Other Races 34 Result Comment: eGFR (Estimated GFR) Units of measure: mL/min/1.73 meters squared eGFR is derived from the reexpressed MDRD Study equation using the following parameters: serum creatinine, age, gender and race. The creatinine assay has been calibrated to be traceable to IDMS. An eGFR <60 mL/min/1.73m2 for >3 months is consistent with chronic kidney disease. Refer to KDOQI guidelines for clinical interpretation. In patients with unstable renal function, e.g. those with acute kidney injury, the eGFR may not accurately reflect actual GFR. Performed By: #### BMP, MG1 #### [facility] [address] [place] [address] MAGNESIUM Collected: 01/21/2018 Status: F Source: [place] 5:43 AM CLINIC OTHER CAMPUS REPOSITORY TYPE CODE TESTS RESULT OUT OF REFERENCE UNITS RANGE LAB MG 1.7-2.3 mg/dL Magnesium 2.1 Performed By: #### BMP, MG1 #### [facility] [address] [place] [address] GLUCOSE Collected: 01/21/2018 Status: F Source: [place] 2:04 AM [facility] OTHER CAMPUS REPOSITORY TYPE CODE TESTS RESULT OUT OF REFERENCE UNITS RANGE LAB GLU 74-99 mg/dL High Glucose 484 Result Comment: The [place] Diabetes Association (ADA) provides guidance for cutoff values for fasting glucose and random glucose. The ADA defines fasting as no caloric intake for at least 8 hours. Fas ting plasma glucose results between 100 to 125 mg/dL indicate increased risk for diabetes (prediabetes). Fasting plasma glucose results greater than or equal to 126 mg/dL meet the criteria for diagnosis of diabetes. In the absence of unequivocal hyperglycemia, results should be confirmed by repeat testing. In a patient with classic symptoms of hyperglycemia or hyperglycemic crisis, random plasma glucose results greater than or equal to 200 mg/dL meet the criteria for diagnosis of diabetes. Reference: Standards of Medical Care in Diabetes 2016, [place] [employer] Association. Diabetes Care. 2016.39(Suppl 1). Performed By: #### GLU #### [facility] [address] [place] [address] CNPTOUTREACH Observed: 01/21/2018 Status: COMPLETED Source: [place] 12:00 AM [facility] [place] REPOSITORY Patient Outreach (FAMPWS) LUZ BACA ([id number]) 1940 F Date Time Provider Department 01/21/18 REMI KENNEDY (RN) FAMPWS During your visit today, we recorded the following information about you: Remi Kennedy RN 01/21/2018 12:01 PM Signed PRIMARY CARE COORDINATION SBAR PCC HAND IN Luz Baca, 77 year old female SITUATION: Pt has had multiple readmissions due to COPD and CHF. Blood sugars have been difficult to control due to steroids. Pt had been seeing PharmD at [place]. Pt has followed closely with PCP, Pulmonology and Cardiology BACKGROUND: Living arrangements: Lives with daughterOctavia Contact Name and phone number: Octavia Soliman Daughter [phone] Health Manager Managed Backup Services: Family Member: daughterOctavia Oxygen provider: Stevie [facility], [facility] [phone] Self Care/ADLs: Needs assistance with: ADL, including personal care, cooking, cleaning and medications Mobility: Ambulates with Wheeled walker, uses wheelchair for MD visits Wheelchair bound Fall risk: Yes: due to decreased sensation in feet and weakness Barriers to care/Adherence: Financial Health literacy with both patient and daughter ASSESSMENT: Functional: Patient is very dependent on daughter who is attentive Psychosocial: Daughter just moved pt up from [facility] this year Medical: Pt is very complex, sees multiple specialists, including Dr. Cruz Pulmonary, Dr. Cardona Cardiology, Dr. Hogan Vascular Surgery and Dr. Rodriguez Podiatry Pt has been seeing [facility] RECOMMENDATIONS: Patient manages at home with assist of daughter and home health nurse. Daughter has health literacy issues and doesn't always respond to PCP in a timely manner. Daughter's health literacy has improved with continued re-instruction Name of [employer]: Remi Kennedy RN [facility] or [facility] office: [facility] Department: Family Medicine Phone number: [phone] E-mail address: [phone] Remi Kennedy RN January 21, 2018 11:57 AM Allergies As of Date: 01/21/2018 Noted Allergy Reaction ASPIRIN 01/20/2018 10 - Anaphylaxis Comments: sts that she bled out every orifice, sts not allowed to take it at all. BACTRIM (SULFAMETHOXAZOLE-TRIMETH*05/17/2017 14 - Other: See Comments Comments: My throat swells up. LATEX 05/17/2017 2 - Rash 9 - Itching Comments: Itching and welts. No wheezing or shortness of breath. PENICILLINS 07/14/2004 2 - Rash 9 - Itching Comments: Tolerated ceftriaxone during 11/2017 admission and cefepime during 12/2017 admission TETRACYCLINE 09/29/2010 2 - Rash 8 - GI Upset Comments: Emesis and diarrhea. ATORVASTATIN 05/17/2017 2 - Rash CODEINE 05/17/2017 14 - Other: See Comments Comments: Numbness DILAUDID (HYDROMORPHONE (BULK)) 05/17/2017 1 - Mental Status Change MEPERIDINE 07/14/2004 PENTAZOCINE 07/14/2004 PIOGLITAZONE 05/17/2017 16 - Unknown PROPOXYPHENE 07/14/2004 Date Reviewed: 01/21/2018 Reviewed by: Nova (Rn) ALLYSON Aviles - Fully Assessed Reason for Visit: [employer] [facility] Follow Up [3610] Prescriptions as of 01/21/2018 Sig: FUROSEMIDE 40 MG TABLET Take 1.5 tablets by mouth twi* ISOSORBIDE MONONITRATE ER 60 * Take 1 tablet by mouth once d* PANTOPRAZOLE 40 MG TABLET,DEL* Take 1 tablet by mouth twice * INSULIN ASPART U-100 100 UNI* Inject 10 Units subcutaneousl* INSULIN GLARGINE (U-100) 100 * Inject 45 Units subcutaneousl* INSULIN GLARGINE (U-100) 100 * Inject 30 Units subcutaneousl* POTASSIUM CHLORIDE ER 10 MEQ * TAKE ONE TABLET BY MOUTH JANETH* APIXABAN 5 MG TABLET Take 5 mg by mouth twice janeth* SIMVASTATIN 40 MG TABLET Take 40 mg by mouth every mor* SPIRONOLACTONE 25 MG TABLET Take 1 tablet by mouth once d* IPRATROPIUM-ALBUTEROL 0.5 MG-* Inhale 3 mL as instructed leanne* DEXTROMETHORPHAN-GUAIFENESIN * Take 5-10 mL by mouth every 6* ALBUTEROL SULFATE CONCENTRATE* Inhale 0.5 mL as instructed o* NITROGLYCERIN 0.4 MG SUBLINGU* Dissolve 1 tablet under the t* GABAPENTIN 300 MG CAPSULE Take 2 capsules by mouth thre* Patient taking differently: Take 600 mg by mouth twice da* ALBUTEROL SULFATE HFA 90 MCG/* Inhale 2 Puffs as instructed * OXYGEN (HOME THERAPY) Inhale 2.5 L/min as instructe* Problem List As Of Date 01/21/2018 Noted Resolved HOCM (hypertrophic obstructive cardiomyopathy) * Priority: I More... SVT (supraventricular tachycardia) (HCC) [I47.1] 01/21/2018 More... Carotid artery disease (HCC) [I77.9] CAD (coronary artery disease) [I25.10] Priority: E More... Essential hypertension [I10] Priority: M More... Hyperlipidemia [E78.5] Pneumonia [J18.9] 10/27/2017 More... COPD (chronic obstructive pulmonary disease) (H* Priority: F More... Sleep apnea [G47.30] Priority: L More... HH (hiatus hernia) [K44.9] 01/21/2018 GERD (gastroesophageal reflux disease) [K21.9] Priority: K More... More... Arthritis [M19.90] Numbness and tingling of right leg [R20.0, R20.* 01/21/2018 Depression [F32.9] Atrial fibrillation (HCC) [I48.91] INVALID FOR* Priority: D More... Uncontrolled type 2 diabetes mellitus with stag*INVALID FOR* Priority: H More... More... More... Heart failure, systolic, acute (HCC) [I50.21] INVALID FOR*01/21/2018 More... Obesity [E66.9] INVALID FOR* Priority: M More... Gout [M10.9] Pacemaker [Z95.0] Acute on chronic combined systolic and diastoli*INVALID FOR* Priority: B More... Elevated troponin [R74.8] INVALID FOR* Priority: G Acute on chronic respiratory failure with hypox*INVALID FOR* Priority: C More... Pulmonary hypertension [I27.20] INVALID FOR* Oral thrush [B37.0] INVALID FOR*01/21/2018 Hyponatremia [E87.1] INVALID FOR* Priority: J Hyperkalemia [E87.5] INVALID FOR* Priority: J Encounter Status:Closed by REMI KENNEDY on 01/25/18 GLUCOSE Collected: 01/20/2018 Status: F Source: [place] 11:09 PM CLINIC OTHER CAMPUS REPOSITORY TYPE CODE TESTS RESULT OUT OF REFERENCE UNITS RANGE LAB GLU 74-99 mg/dL High Glucose 672 Result Comment: The [place] Diabetes Association (ADA) provides guidance for cutoff values for fasting glucose and random glucose. The ADA defines fasting as no caloric intake for at least 8 hours. Fas ting plasma glucose results between 100 to 125 mg/dL indicate increased risk for diabetes (prediabetes). Fasting plasma glucose results greater than or equal to 126 mg/dL meet the criteria for diagnosis of diabetes. In the absence of unequivocal hyperglycemia, results should be confirmed by repeat testing. In a patient with classic symptoms of hyperglycemia or hyperglycemic crisis, random plasma glucose results greater than or equal to 200 mg/dL meet the criteria for diagnosis of diabetes. Reference: Standards of Medical Care in Diabetes 2016, [place] [employer] Association. Diabetes Care. 2016.39(Suppl 1). Called to and read back by: Ellyn Archuleta RN [address] 01/21/2018 0005 by Zan Shah. Performed By: #### GLU #### [facility] [address] [facility] [phone] URINALYSIS Collected: 01/20/2018 Status: F Source: [place] 10:00 PM [facility] OTHER [place] REPOSITORY TYPE CODE TESTS RESULT OUT OF RANGE REFERENCE UNITS LAB UCOL Yellow Color Abnormal Straw Alert LAB [facility] Clear Clarity Clear LAB UGLUC Negative mg/dL Glucose, Abnormal Urine >=1000 Alert LAB UBIL Negative Bilirubin, Urine Negative LAB UKET Negative Ketones, Urine Negative LAB US[facility] 1.001-1.029 Specific [place], Ur 1.010 LAB UHGB Negative Hemoglobin/Blood, Negative Ur LAB UPH 5.0-8.0 pH 7.0 LAB UPROT Negative mg/dL Protein, Urine Negative LAB UUROB 0.2-1.0 Urobilinogen 0.2 LAB UNITR Negative Nitrites Negative LAB ULKEST Negative Leukest Negative Performed By: #### UA #### [facility] [address] [place] [phone] LEGIONELLA URINE AG Collected: 01/20/2018 Status: F Source: [place] 10:00 PM [facility] REPOSITORY TYPE CODE TESTS RESULT OUT OF REFERENCE UNITS RANGE LAB LEGUAG Negative Legionella Urine Negative Ag Performed By: #### LEGUAG #### [facility] [address] [place] [address] URINE STREP PNEUMO Collected: 01/20/2018 Status: F Source: [place] FOR WEST USE ONLY 10:00 PM [facility] REPOSITORY TYPE CODE TESTS RESULT OUT OF REFERENCE UNITS RANGE LAB USTPW Negative Urine Negative Strep Pneumo FOR WEST USE ONLY Result Comment: Strep Pneumo vaccine may cause a false positive Strep Pneumo antigen result in the 48 hours following vaccine. Performed By: #### USTPW #### [facility] [address] [place] [phone] TROPONIN T Collected: 01/20/2018 Status: F Source: [place] 9:58 PM [facility] REPOSITORY TYPE CODE TESTS RESULT OUT OF REFERENCE UNITS RANGE LAB TROPT 0.000-0.029 ng/mL High Troponin T 0.050 Result Comment: Urgent value previously called on 01/20/18 at 1403 Ellyn Vivas Performed By: #### MARIN #### [facility] [address] [facility] [phone] PROCALCITONIN Collected: 01/20/2018 Status: F Source: [place] 9:58 PM [facility] OTHER [place] REPOSITORY TYPE CODE TESTS RESULT OUT OF REFERENCE UNITS RANGE LAB PROCLT <0.09 ng/mL Procalcitonin High 0.14 Result Comment: For a guided interpretation of test results, please visit the Change in Procalcitonin Calculator, [email or web address]. Performed By: #### DON FINHCM #### [facility] [place] [facility] [place] [address] MYCOPLASMA IGM AB Collected: 01/20/2018 Status: F Source: [place] 9:58 PM [facility] REPOSITORY TYPE CODE TESTS RESULT OUT OF REFERENCE UNITS RANGE LAB MYCOML Negative M. pneumo Negative IgM, Qual Result Comment: No significant amount of IgM antibodies to M. pneumoniae detected. A nonreactive result indicates no current/previous infection. LAB MYCOM OD Ratio Mycoplasma IgM AB 0.73 Result Comment: Index Values/OD Ratios are interpreted as follows: Negative: < or = 0.90 Equivocal: 0.91 to 1.09 Positive: > or = 1.10 The magnitude of the measured result above the cutoff is not indicative of the total amount of antibody present and cannot be correlated to IFA titers. Performed By: #### JOSETTE MYCOPM #### [facility] [place] [address] [place] [address] NURSING PROG Observed: 01/20/2018 Status: COMPLETED Source: [place] 9:36 PM [facility] REPOSITORY HNO ID: [id number] Author: Russell (Rn) ALLYSON Archuleta Service: Nursing Author Type: Registered Nurse Type: Nursing Progress Note Filed: 01/21/2018 2:55 AM Note Text: Nursing Progress Note Patient Name: Luz Baca [id number] Daily Note: 2120 Pt on floor from 2 South. 2135 BG from lab 818, hospitalist paged. [address] Wick, orders received. 2350 Patient's BG 672. Hospitalist paged. [address] Guerrero, orders received. 0250 BG 484, spoke to Dr Guerrero, orders to check BG in AM. This note was completed by: Russell Archuleta RN B-HYDROXYBUTYRATE Collected: Status: F Source: [place] 01/20/2018 8:46 PM CLINIC OTHER [place] REPOSITORY TYPE CODE TESTS RESULT OUT OF RANGE REFERENCE UNITS LAB BHBK <0.28 mmol/L 0.17 B-Hydroxybut yrate Performed By: #### BHB, GLU #### [address] [phone] #### HBA1C #### [facility] [address] [place] [address] GLUCOSE Collected: 01/20/2018 Status: F Source: [place] 8:46 PM [facility] OTHER [place] REPOSITORY TYPE CODE TESTS RESULT OUT OF REFERENCE UNITS RANGE LAB GLU 74-99 mg/dL High Glucose 818 Result Comment: The [place] [employer] Association (ADA) provides guidance for cutoff values for fasting glucose and random glucose. The ADA defines fasting as no caloric intake for at least 8 hours. Fas ting plasma glucose results between 100 to 125 mg/dL indicate increased risk for diabetes (prediabetes). Fasting plasma glucose results greater than or equal to 126 mg/dL meet the criteria for diagnosis of diabetes. In the absence of unequivocal hyperglycemia, results should be confirmed by repeat testing. In a patient with classic symptoms of hyperglycemia or hyperglycemic crisis, random plasma glucose results greater than or equal to 200 mg/dL meet the criteria for diagnosis of diabetes. Reference: Standards of Medical Care in Diabetes 2016, [place] [employer]. Diabetes Care. 2016.39(Suppl 1). Called to and read back by: Ángel Almonte [address] [place] [address] 01/20/20182130 by Zan Shah. Performed By: #### BHB, GLU #### [address] [phone] #### HBA1C #### [facility] [address] [place] [address] HEMOGLOBIN A1C Collected: 01/20/2018 Status: F Source: [place] 8:46 PM [facility] REPOSITORY TYPE CODE TESTS RESULT OUT OF REFERENCE UNITS RANGE LAB HGBA1C 4.3-5.6 % High Hemoglobin A1c 12.3 LAB HBA0 mg/dL Est. Average Glucose 306 Result Comment: eAG: (Estimated average glucose) is a calculated value from HgbA1c and is outreach representative of the average blood glucose level in the last 2-3 month period. Performed By: #### BHB, GLU #### [place] [phone] #### HBA1C #### [place] [address] NURSING PROG Observed: 01/20/2018 Status: COMPLETED Source: [place] 7:19 PM [facility] REPOSITORY HNO ID: [id number] Author: Irasema Mitchell (Rn) ALLYSON Basilio Service: (none) Author Type: Registered Nurse Type: Nursing Progress Note Filed: 01/20/2018 7:28 PM Note Text: Nursing Progress Note Patient Name: Luz Baca Patient [id number] Daily Note: [address] Mark. Pt going to be transferred to . Additional Humulin order put in. Informed Lasix was given in ED. Stated to give additional Lasix IV ordered Lasix. This note was completed by: Irasema Basilio RN NURSING PROG Observed: 01/20/2018 Status: COMPLETED Source: [place] 6:26 PM [facility] REPOSITORY HNO ID: [id number] Author: Irasema Mitchell (Rn) Debro, RN Service: (none) Author Type: Registered Nurse Type: Nursing Progress Note Filed: 01/20/2018 6:26 PM Note Text: Nursing Progress Note Patient Name: Luz Baca [place] [facility] [id number] Daily Note: [address] Wick re: pt's BS. Doc. Putting in new order and blood sugar checks. This note was completed by: Irasema Basilio RN NURSING PROG Observed: 01/20/2018 Status: COMPLETED Source: [place] 6:13 PM [facility] REPOSITORY O ID: [id number] Author: Iraseam Mitchell (Rn) ALLYSON Basilio Service: (none) Author Type: Registered Nurse Type: Nursing Progress Note Filed: 01/20/2018 6:18 PM Note Text: Nursing Progress Note Patient Name: Luz Baca Patient [place] [facility] [id number] Daily Note: [address] Strickland per her request Blood glucose: 804. Dr. Strickland not on right now per the road roller operator hot mix. Hospitalist paged. [phone] Jonny from lab; with urgent value: of blood glucose of 804. This note was completed by: Irasema Basilio RN TROPONIN T Collected: 01/20/2018 Status: F Source: [place] 5:34 PM [facility] OTHER [place] REPOSITORY TYPE CODE TESTS RESULT OUT OF REFERENCE UNITS RANGE LAB TROPT 0.000-0.029 ng/mL High Troponin T 0.051 Result Comment: Urgent value previously called on 01/20/18 1403. Performed By: #### MARIN #### [facility] [address] [phone] GLUCOSE Collected: 01/20/2018 Status: F Source: [place] 5:34 PM [facility] REPOSITORY TYPE CODE TESTS RESULT OUT OF REFERENCE UNITS RANGE LAB GLU 74-99 mg/dL High Glucose 804 Result Comment: The [place] [employer] Association (ADA) provides guidance for cutoff values for fasting glucose and random glucose. The ADA defines fasting as no caloric intake for at least 8 hours. Fas ting plasma glucose results between 100 to 125 mg/dL indicate increased risk for diabetes (prediabetes). Fasting plasma glucose results greater than or equal to 126 mg/dL meet the criteria for diagnosis of diabetes. In the absence of unequivocal hyperglycemia, results should be confirmed by repeat testing. In a patient with classic symptoms of hyperglycemia or hyperglycemic crisis, random plasma glucose results greater than or equal to 200 mg/dL meet the criteria for diagnosis of diabetes. Reference: Standards of Medical Care in Diabetes 2016, [place] [employer] Association. Diabetes Care. 2016.39(Suppl 1). Called to and read back by: Martine Almonte [address] [place] [address] 01/20/2018 Dayanara Espinosa Performed By: #### GLU #### [facility] [address] [facility] [phone] ED NOTE Observed: 01/20/2018 Status: COMPLETED Source: [place] 3:41 PM [facility] REPOSITORY HNO ID: [id number] Author: Yoly Colin RN Service: (none) Author Type: Registered Nurse Type: ED Notes Filed: 01/20/2018 3:41 PM Note Text: Report given to Irasema Valadez. HISTORY PHYSICAL Observed: 01/20/2018 Status: COMPLETED Source: [place] 3:27 PM [facility] REPOSITORY HNO ID: [id number] Author: Russell Strickland Service: General Internal Medicine Author Type: Physician Type: HANDP Filed: 01/20/2018 3:49 PM Note Text: HISTORY AND PHYSICAL EXAMINATION SERVICE DATE: 01/20/2018 SERVICE TIME: 1530 PRIMARY CARE PHYSICIAN: Jameson Kamara MD Subjective CHIEF COMPLAINT: sob HPI: This is a 77 year old female who presents with sob. Pt reports increased swelling in legs. Lasix increased 01/06 with no change. Just finished atx and prednisone recently. No n/v/ Some diarrhea. Still has some coughing with eating but it trying to follow instructions from last visit. No f/c. Cough occ productive, clear sputum. No hemoptysis. No wheezing. Constant chest pressure. No palps, no dizziness. Never filled rx for h pylori from last visit FUNCTIONAL STATUS: Partially dependent PAST MEDICAL HISTORY Diagnosis Date - Arthritis - Atrial fibrillation ([facility]) - CAD (coronary artery disease) stents x9, defibrillator, CABG. Seeing Dr. Cardona - Cardiac defibrillator in place - Cardiomegaly - Carotid artery disease ([facility]) left - CKD (chronic kidney disease), stage IV ([facility]) Dr. Martin - COPD (chronic obstructive pulmonary disease) ([facility]) Dr. Cruz - Depression - Diabetes ([facility]) - Diabetic neuropathy ([facility]) - GERD (gastroesophageal reflux disease) - Gout - HH (hiatus hernia) - HOCM (hypertrophic obstructive cardiomyopathy) ([facility]) - HTN (hypertension) - Hyperlipidemia - Morbid obesity with BMI of 40.0-44.9, adult ([facility]) - Pacemaker - Pneumonia h/o pneumonia/bronchitis - Renal insufficiency 2003 post op - Sleep apnea 2011 not on CPAP, unable to tolerate mask 02/2017 - SVT (supraventricular tachycardia) ([facility]) NSVT and questionable VT in 2003 post op PAST SURGICAL HISTORY Procedure Laterality Date - PAST SURGICAL HISTORY OF 07/18/2004 Septal myectomy and CABG x2 (DEBORAH-LAD, SVG-PDA). - PAST SURGICAL HISTORY OF left breast nodule removed - PAST SURGICAL HISTORY OF hysterectomy - PAST SURGICAL HISTORY OF perianal abscess drained - PAST SURGICAL HISTORY OF cholecystectomy - PAST SURGICAL HISTORY OF skin lesions removed FAMILY HISTORY Problem Relation Age of Onset - Hypertension Mother living at age 93, HTN - Heart Failure Mother [place] - Cancer Father age 71, lung cancer Social History Substance Use Topics - Smoking status: Former Smoker Packs/day: 2.50 Years: 43.00 Types: Cigarettes Start date: 1961 Quit date: 07/07/2004 - Smokeless tobacco: Never Used - Alcohol use No (Not in a hospital admission) ALLERGIES Allergen Reactions - Aspirin Anaphylaxis sts that she bled out every orifice, sts not allowed to take it at all. - Bactrim [Sulfametho* Other: See Comments My throat swells up. - Latex Rash, Itching Itching and welts. No wheezing or shortness of breath. - Penicillins Rash, Itching Tolerated ceftriaxone during 11/2017 admission and cefepime during 12/2017 admission - Tetracycline Rash, GI Upset Emesis and diarrhea. - Atorvastatin Rash - Codeine Other: See Comments Numbness - Dilaudid [Hydromorp* Mental Status Change - Meperidine - Pentazocine - Pioglitazone Unknown - Propoxyphene COMPLETE REVIEW OF SYSTEMS: PAIN ASSESSMENT: Negative for pain, history of chronic pain, or current treatment for a chronic pain condition. GENERAL: No weight loss, malaise or fevers HEENT: Negative for frequent or significant headaches, No changes in hearing or vision, no nose bleeds or other nasal problems, No nasal bleeding, congestion or rhinorrhea RESPIRATORY: See HPI CARDIOVASCULAR: See HPI GI: No nausea, vomiting, or diarrhea, No heartburn or reflux symptoms and Constipation MUSCULOSKELETAL: Negative for joint pain or swelling, back pain or muscle pain SKIN: Negative for lesions, rash, and itching PSYCH: Negative for sleep disturbance, mood disorder and recent psychosocial stressors HEMATOLOGY/LYMPHOLOGY: Negative for prolonged bleeding, bruising easily or swollen nodes Objective PHYSICAL EXAM: Physical Exam Performed: GENERAL: Alert, no distress, cooperative SKIN: Skin color, texture, turgor normal. No rashes or lesions. HEAD/SINUSES: No significant findings EYES: PERRLA, EOMI NECK: No carotid bruits LUNGS: Lungs clear to auscultation, Good diaphragmatic excursion CARDIAC: Normal S1 and S2; no rubs, murmurs, or gallops ABDOMEN: Abdomen soft, non-tender, BS normal, No masses or organomegaly EXTREMITIES: +1 pitting edema BP 164/67 Pulse 72 Temp (Src) 97.8 (Oral) Resp 18 Wt 252 lb (114.3kg) SpO2 95% DATA: Diagnostic tests reviewed for today's visit: Most recent labs and imaging results. Assessment/Plan Active Problems: Acute on chronic combined systolic and diastolic CHF (congestive heart failure) (HCC) POA: Yes Assessment AND Plan: recent echo ef 50%, grade 3 diastolic dysfunction, pulm HTN. Lasix recently increased as outpt. BNP 2145, last admit 2600. IV lasix 80 bid, strict I/O's, consult cardio Hx HOCM with myomectomy Acute on chronic respiratory hypoxic respiratory failure: due to chf exacerbation, ? Copd exacerbation. Pt also recently admitted with HAP and recently finished course of flagyl and rocephin. CXR difficult to assess due to chronic changes but doesn't appear to have a new infiltrate. Check procalcitonin, strep, legionella and mycoplasma. Hold off on antibiotics for now. Pt afebrile, nl wbc CAD (coronary artery disease) POA: Yes Assessment AND Plan: cont home meds, repeat troponin Essential hypertension POA: Yes Assessment AND Plan: stable cont home meds COPD (chronic obstructive pulmonary disease) (HCC) POA: Yes Assessment AND Plan: duoneb q 4, albuterol prn and add pulmicort. Cont home oxygen. Given one dose of iv steroids in ER. Pt is not currently wheezing and sugars are extremely high so will try and hold off on further steroids Consult pulmonary Sleep apnea POA: Yes Assessment AND Plan: cont cpap GERD (gastroesophageal reflux disease) POA: Yes Assessment AND Plan: egd last visit: gastritis, retained food and dilatation performed. + for h pylori and pt did not fill script as outpt. Cont ppi, start biaxin and flagyl Atrial fibrillation (HCC) POA: Yes Assessment AND Plan: rate stable, place on tele, cont eliquis Diabetes mellitus due to underlying condition, uncontrolled, with stage 3 chronic kidney disease, with long-term current use of insulin (HCC) POA: Yes Assessment AND Plan: glucose 800 upon presentation to ER, no signs of dka. Pt is very poorly controlled with A1c greater than 15. CKD (chronic kidney disease) stage 3, GFR 30-59 ml/min POA: Yes Assessment AND Plan: Cr stable at 1.4 Elevated troponin POA: Yes Assessment AND Plan: likely due to ckd, stable for pt, no acute ekg changes, repeat to make sure not trending upwards Hyponatremia POA: Unknown Assessment AND Plan: probably mostly from hyperglycemia, possible component from chf Hyperkalemia POA: Unknown Assessment AND Plan: pcp recently stopped potassium, still on aldactone, watch closely Resolved Problems: * No resolved hospital problems. * SIGNATURE: Russell Strickland MD PATIENT NAME: Luz Baca DATE: January 20, 2018 TIME: 3:27 PM PAGER/CONTACT #: [phone] BASIC METABOLIC PANL Collected: 01/20/2018 Status: F Source: [place] 3:26 PM [facility] REPOSITORY TYPE CODE TESTS RESULT OUT OF REFERENCE UNITS RANGE LAB GLU 74-99 mg/dL High Glucose 825 Result Comment: The [place] Diabetes Association (ADA) provides guidance for cutoff values for fasting glucose and random glucose. The ADA defines fasting as no caloric intake for at least 8 hours. Fas ting plasma glucose results between 100 to 125 mg/dL indicate increased risk for diabetes (prediabetes). Fasting plasma glucose results greater than or equal to 126 mg/dL meet the criteria for diagnosis of diabetes. In the absence of unequivocal hyperglycemia, results should be confirmed by repeat testing. In a patient with classic symptoms of hyperglycemia or hyperglycemic crisis, random plasma glucose results greater than or equal to 200 mg/dL meet the criteria for diagnosis of diabetes. Reference: Standards of Medical Care in Diabetes 2016, [place] [employer]. Diabetes Care. 2016.39(Suppl 1). No call per procedure. 01/20/2018 16[address] LAB BUN 7-21 mg/dL BUN High 39 LAB CRET 0.58-0.96 mg/dL Creatinine High 1.36 LAB NA 136-144 mmol/L Low Sodium 126 LAB K 3.7-5.1 mmol/L Potassium High 5.2 LAB CL 97-105 mmol/L Low Chloride 84 LAB CO2 22-30 mmol/L CO2 30 LAB AGAP 9-18 mmol/L Anion Gap 12 LAB CA 8.5-10.2 mg/dL Calcium, Total 8.7 LAB GFRAA eGFR- Amer. 46 LAB GFRNAA . eGFR-All Other Races 38 Result Comment: eGFR (Estimated GFR) Units of measure: mL/min/1.73 meters squared eGFR is derived from the reexpressed MDRD Study equation using the following parameters: serum creatinine, age, gender and race. The creatinine assay has been calibrated to be traceable to IDMS. An eGFR <60 mL/min/1.73m2 for >3 months is consistent with chronic kidney disease. Refer to KDOQI guidelines for clinical interpretation. In patients with unstable renal function, e.g. those with acute kidney injury, the eGFR may not accurately reflect actual GFR. Performed By: #### BMP #### [facility] [address] [facility] [phone] ED NOTE Observed: 01/20/2018 Status: COMPLETED Source: [place] 3:15 PM [facility] OTHER CAMPUS REPOSITORY O ID: [id number] Author: Yoly Briseno) ALLYSON Colin Service: (none) Author Type: Registered Nurse Type: ED Notes Filed: 01/20/2018 3:15 PM Note Text: Floor aware of bed assignment CASE MGT INIT Observed: 01/20/2018 Status: COMPLETED Source: [place] 3:05 PM [facility] OTHER CAMPUS REPOSITORY HNO ID: [id number] Author: Zenobia OsheaRn) ALLYSON Soto Service: (none) Author Type: Registered Nurse Type: Care Mgt Initial Assessment Filed: 01/20/2018 3:14 PM Note Text: CARE MANAGEMENT: ASSESSMENT AND DISCHARGE PLAN SERVICE DATE: 01/20/2018 SERVICE TIME: 3:05 PM PRIMARY CARE PHYSICIAN: Jameson Kamara MD (confirmed) ADMISSION STATUS: Emergency Needs Prior to Discharge: To Be Determined;Home Care Order MEDICAL: Patient/Home And School Visitor Stated Goals: To have reduction in pain To have reduction in symptoms To improve my functional status To return home to life as it was Health Insurance: MEDICARE A AND B confirmed Health Issues Impacting Discharge Plan: afib, CAD, HTN, DM, CHF, COPD Last Admission Date: Previous admit date: 12/23/2017 Is this Within the Past 30 days? Yes Is This a Planned Readmission? No: Recurrent symptoms of underlying disease Followed Up with Appointment Prior to Admission: Appointment completed Where Did the Patient Come From? Home Intervention Taken to Avoid Future Readmission? [facility] Advance Directive: Current Advance Directive: None Group Work Program Aide Assisted with AD Completion: (declined at this time) Health Literacy: 1. How often do you need to have someone help you when you read instructions, pamphlets, or other written material from your doctor or pharmacy? Sometimes - 3 2. How confident are you filling out medical forms by yourself? Somewhat - 3 If Patient scores > 3 on either question, the following interventions were put into place: Use of plain language and active listening with Patient and family FUNCTIONAL AND COGNITIVE/BEHAVIORAL PRIOR TO ADMISSION: Baseline Mental Status: Alert AND Oriented, Person, Place , Time and Situation Functional Status: Needs Assistance Does Patient Currently Receive Any Community Services or Home Care? Home Health Care Agency: [facility]; ; Active. Equipment Prior to Admission: Bedside Commode Oxygen 2.5 liters per minute Rollator Scooter Walker Has the Patient Been in a Snf Facility in the Past 30 days? No SOCIAL: Living Arrangement: Home Lives With: Daughter Financial Resources: Retired Primary Contact: Extended Emergency Contact Information Primary Emergency Contact: Octavia Soliman [address]: [address] [place] [address] [place] [address] Relation: Daughter Supportive: Yes Other Important Patient Contacts: None Caregiver Assessment: Caregiver is ready, willing and able to meet the patient's needs as recommended by the inter-professional team? TBD Patient's transition needs and plan for meeting these needs: continue HHC Does the patient have an acute stroke diagnosis, or has the patient had a stroke during this admission? No Medication Adherence: I am convinced of the importance of my prescription medication: Agree mostly - 0 I worry that my prescription medication will do more harm than good to me Disagree mostly - 0 I feel financially burdened by my [id number] expenses for my prescription medication: Agree mostly - 2 Patient is categorized as medium risk score 2-7: The following interventions are being put into place - Consult social work Are you interested in bedside delivery of your medications? No , uses [facility] in [place] Food Concerns: In the Last Month, Have You had Trouble Getting Food? No trouble getting food During the Last Month, Have You Worried Whether Your Food Would Run Out Before You Had Enough Money to Buy More? No Is the Patient Psychosocially Complex? No ASSESSMENT AND PLAN: Medical Needs: 2 or more chronic diseases Psychosocial Needs: None FREEDOM OF CHOICE EXPLAINED: Yes [facility] POTENTIAL TRANSITION PLANS Home Care CM in to speak with patient at bedside, introduced self and role. Pt is a 77y/o with a history of atrial fibrillation , CAD with defibrillator/pacer,HTN, hyperlipidemia , DM , CHF and COPD now presenting with intermittent 1-2 minute episodes of sharp chest discomfort. Pt is AANDOx3-4, resides with dtmarlon Andujar (who is careprovider ) in a 1SH. REGULATOR ASSEMBLER pt was active with [facility] 1x week and would like to continue upon d/c home. CM instructed pt that a CM will remain available for any d/c needs. Pt had no further questions/concerns voiced at this time. SIGNATURE: Zenobia Soto RN PATIENT NAME: Luz Baca DATE: January 20, 2018 TIME: 3:05 PM PAGER/CONTACT #: [phone] HIGH SENS TROPONIN T Collected: 01/20/2018 Status: F Source: [place] 1:48 PM [facility] OTHER CAMPUS REPOSITORY TYPE CODE TESTS RESULT OUT OF REFERENCE UNITS RANGE LAB HSTN <12 ng/L High High Sensitivity MARIN 60 Result Comment: When assessing risk for acute coronary syndromes: In patients undergoing blood draw greater than or equal to 2 hours from symptom onset, with history of very low to moderate risk and non -ischemic ECG, an initial hs-Troponin T less than 12 ng/L AND a 1 hour delta hs- Troponin T less than 3 ng/L should be considered very low risk for 30 day MACE. Urgent value previously called [id number] [address] Performed By: #### HSTNT #### [facility] [address] [facility] [phone] XR CHEST 1V FRONTAL Observed: 01/20/2018 Status: F Source: [facility] 1:36 PM [facility] OTHER CAMPUS REPOSITORY * * *Final Report* * * DATE OF EXAM: Jan 20 2018 1:36PM MDX [id number] - XR CHEST 1V FRONTAL PORT / PROCEDURE REASON: Chest pain * * * * Physician Interpretation * * * * EXAMINATION: CHEST RADIOGRAPH (PORTABLE SINGLE VIEW AP) Exam Date/Time: 01/20/2018 1:36 PM Indication: Chest pain MQ: XCP_4 Comparison: Comparison is made to prior chest dated 06 January 2018 and back to 27 July 2017 and 23 September 2010 RESULT: See impression. IMPRESSION: No significant change in the left basilar airspace disease when compared to prior remote studies. Findings likely represent chronic pleural reaction and fibrotic scarring.. Lines, tubes, and devices: None. The pacemaker is unchanged and satisfactory in position. Monitor leads overlie the chest Lungs and pleura: Poor visualization of the left mid and lower lung with some persistent left basilar infiltrate/atelectasis and possibly pleural fluid, not significantly changed from July 2017 and back to 2009 Cardiomediastinal silhouette: There is calcification and tortuosity of the thoracic aorta and enlargement of the cardiac silhouette with post median sternotomy changes, stable Other: The visualized bony structures are intact Service Delivery Supervisor: SALINAS Transcribe Date/Time: Jan 20 2018 1:49P Dictated by : DONNIE HARRISON MD This examination was interpreted and the report reviewed and electronically signed by: DONNIE HARRISON MD on Jan 20 2018 1:52PM EST [id number] ED PROV NOTE Observed: 01/20/2018 Status: COMPLETED Source: [place] 1:30 PM [facility] OTHER [facility]AMPUS REPOSITORY HNO ID: [id number] Author: Leandro Kauffman MD Service: (none) Author Type: Physician Type: ED Provider Notes Filed: 01/20/2018 3:28 PM Note Text: ED Provider Note Patient Name: Luz Baca SERVICE DATE: 01/20/18 History Patient presents with: Chest Pain HPI Ms. Baca is a pleasant 77-year-old female with a history of atrial fibrillation and coronary artery disease with multiple stents as well as a defibrillator/pacer and hypertension and hyperlipidemia and diabetes and CHF and COPD now presenting with intermittent 1-2 minute episodes of sharp chest discomfort in her mid sternal area that happen every so often since last night, similar to previous COPD/CHF problems. She has increased leg swelling and diffuse swelling and worsening breathing when trying to lie flat or get up and exerted herself as well. She is usually on 2 L nasal cannula, which is working at this point. She denies hemoptysis. She has no high fevers or chills. She does take an oral anticoagulant and she takes Lasix/spironolactone. PAST MEDICAL HISTORY Diagnosis Date - Arthritis - Atrial fibrillation ([facility]) - CAD (coronary artery disease) stents x9, defibrillator, CABG. Seeing Dr. Cardona - Cardiac defibrillator in place - Cardiomegaly - Carotid artery disease ([facility]) left - CKD (chronic kidney disease), stage IV ([facility]) Dr. Martin - COPD (chronic obstructive pulmonary disease) ([facility]) Dr. Cruz - Depression - Diabetes ([facility]) - Diabetic neuropathy ([facility]) - GERD (gastroesophageal reflux disease) - Gout - HH (hiatus hernia) - HOCM (hypertrophic obstructive cardiomyopathy) ([facility]) - HTN (hypertension) - Hyperlipidemia - Morbid obesity with BMI of 40.0-44.9, adult ([facility]) - Pacemaker - Pneumonia h/o pneumonia/bronchitis - Renal insufficiency 2003 post op - Sleep apnea 2011 not on CPAP, unable to tolerate mask 02/2017 - SVT (supraventricular tachycardia) ([facility]) NSVT and questionable VT in 2003 post op PAST SURGICAL HISTORY Procedure Laterality Date - PAST SURGICAL HISTORY OF 07/18/2004 Septal myectomy and CABG x2 (DEBORAH-LAD, SVG-PDA). - PAST SURGICAL HISTORY OF left breast nodule removed - PAST SURGICAL HISTORY OF hysterectomy - PAST SURGICAL HISTORY OF perianal abscess drained - PAST SURGICAL HISTORY OF cholecystectomy - PAST SURGICAL HISTORY OF skin lesions removed FAMILY HISTORY Problem Relation Age of Onset - Hypertension Mother living at age 93, HTN - Heart Failure Mother NE - Cancer Father age 71, lung cancer Social History Social History Main Topics - Smoking status: Former Smoker Packs/day: 2.50 Years: 43.00 Types: Cigarettes Start date: 1961 Quit date: 07/07/2004 - Smokeless tobacco: Never Used - Alcohol use No - Drug use: No - Sexual activity: Not on file ALLERGIES Allergen Reactions - Aspirin Anaphylaxis sts that she bled out every orifice, sts not allowed to take it at all. - Bactrim [Sulfametho* Other: See Comments My throat swells up. - Latex Rash, Itching Itching and welts. No wheezing or shortness of breath. - Penicillins Rash, Itching Tolerated ceftriaxone during 11/2017 admission and cefepime during 12/2017 admission - Tetracycline Rash, GI Upset Emesis and diarrhea. - Atorvastatin Rash - Codeine Other: See Comments Numbness - Dilaudid [Hydromorp* Mental Status Change - Meperidine - Pentazocine - Pioglitazone Unknown - Propoxyphene Review of Systems Constitutional: Positive for fatigue. Negative for chills and fever. HENT: Negative for ear pain, rhinorrhea and sore throat. Respiratory: Positive for shortness of breath. Negative for cough. Cardiovascular: Positive for chest pain and leg swelling. Gastrointestinal: Negative for abdominal pain, diarrhea, nausea and vomiting. Genitourinary: Negative for dysuria, flank pain, frequency and hematuria. Musculoskeletal: Negative for back pain. Skin: Negative for rash. Neurological: Positive for weakness. Negative for speech difficulty, light-headedness, numbness and headaches. Psychiatric/Behavioral: Negative for hallucinations and suicidal ideas. Physical Exam BP 164/67 Pulse 72 Temp (Src) 97.8 (Oral) Resp 18 Wt 252 lb (114.3kg) SpO2 95% Physical Exam Constitutional: She is oriented to person, place, and time. No distress. Chronically ill, no acute distress HENT: Head: Normocephalic and atraumatic. Mouth/Throat: No oropharyngeal exudate. Eyes: Pupils are equal, round, and reactive to light. Neck: Normal range of motion. Neck supple. No tracheal deviation present. Cardiovascular: Normal rate and intact distal pulses. Exam reveals no gallop and no friction rub. No murmur heard. Pulmonary/Chest: Effort normal. No respiratory distress. She has rales. Bilateral basilar rales, mildly decreased expiratory phase throughout, no outright wheeze Abdominal: Soft. Bowel sounds are normal. She exhibits distension. There is no tenderness. There is no rebound and no guarding. Musculoskeletal: Normal range of motion. She exhibits edema. Neurological: She is alert and oriented to person, place, and time. No cranial nerve deficit. She exhibits normal muscle tone. Skin: Skin is warm and dry. No erythema. There is pallor. Psychiatric: She has a normal mood and affect. Her behavior is normal. Judgment and thought content normal. Nursing note and vitals reviewed. Diagnostic Testing ED Labs Ordered and Reviewed CBC + DIFF - Abnormal; Notable for the following: Result Value Ref Range Platelet Count 138 (*) 150 - 400 k/uL Abs Lymph 0.76 (*) 1.00 - 4.00 k/uL All other components within normal limits COMP METABOLIC PANEL - Abnormal; Notable for the following: Albumin 3.3 (*) 3.9 - 4.9 g/dL Alkaline Phosphatase 157 (*) 32 - 117 U/L Glucose 832 (*) 74 - 99 mg/dL BUN 38 (*) 7 - 21 mg/dL Creatinine 1.40 (*) 0.58 - 0.96 mg/dL Sodium 126 (*) 136 - 144 mmol/L Potassium 5.2 (*) 3.7 - 5.1 mmol/L Chloride 85 (*) 97 - 105 mmol/L CO2 31 (*) 22 - 30 mmol/L All other components within normal limits HIGH SENSITIVITY TROPONIN T - Abnormal; Notable for the following: MARIN High Sensitivity 63 (*) <12 ng/L All other components within normal limits HIGH SENSITIVITY TROPONIN T - Abnormal; Notable for the following: MARIN High Sensitivity 60 (*) <12 ng/L All other components within normal limits CK TOTAL AND CK-MB - Abnormal; Notable for the following: CK 37 (*) 42 - 196 U/L MB 5.8 (*) <4.3 ng/mL All other components within normal limits NT PRO BNP - Abnormal; Notable for the following: NT Pro BNP 2145 (*) <450 pg/mL All other components within normal limits TROPONIN T - Abnormal; Notable for the following: Troponin T 0.068 (*) 0.000 - 0.029 ng/mL All other components within normal limits MAGNESIUM BLD PROTHROMBIN TIME/PT ACTIVATED PTT BASIC METABOLIC PNL Procedures Medical Decision Making / ED Course ED Course Course: Vital signs were reviewed. Triage records were reviewed. Medical records were reviewed. Nursing notes were reviewed and incorporated. The following medications were administered: Nitropaste, aspirin, DuoNeb, solumedrol Patient was place on oxygen. Patient placed on monitor ECG reviewed and interpreted as demand pacer, some bigeminy, no ST elevation myocardial infarction, demand paced rhythm looks similar to previous ECG Labs reviewed and interpreted as below Radiographs were reviewed below. The case was discussed with the admitting physician. Medical Decision Making: Differential diagnosis: CHF, COPD, ACS less likely but checking enzymes, electronic disarray, anemia, other causes of similar symptoms. Assessment and plan: Ms. Baca is a pleasant 77 year old female presenting today with some intermittent chest discomfort which has been her COPD equivalent previously. She just finished prednisone yesterday. We will give her some steroids and likely consider admission. Trop 0.06, chronically up (CRI and CHF and COPD). ASA, lasix, nitropaste, steroids, Dr. Strickland will admit. 10 u SQ insulin as still high after 8 u SQ insulin. The attending who evaluated and managed this patient was Leandro Kauffman . Plan: The patient was admitted to Regular nursing floor. Case discussed with admitting physician, Dr. Strickland. Consent: A procedure or transfusion was performed - No Leandro Kauffman MD Encounter Diagnosis ICD-10-CM 1. Chest pain, unspecified type R07.9 2. Hyperglycemia R73.9 3. Acute diastolic CHF (congestive heart failure) ([facility]) I50.31 4. Acute on chronic combined systolic and diastolic CHF (congestive heart failure) ([facility]) I50.43 5. Acute on chronic respiratory failure with hypoxia ([facility]) J96.21 6. Atrial fibrillation, unspecified type ([facility]) I48.91 7. Coronary artery disease, angina presence unspecified, unspecified vessel or lesion type, unspecified whether rincon or transplanted heart I25.10 8. CKD (chronic kidney disease) stage 3, GFR 30-59 ml/min N18.3 9. Chronic obstructive pulmonary disease with acute exacerbation ([facility]) J44.1 10. Diabetes mellitus due to underlying condition, uncontrolled, with stage 3 chronic kidney disease, with long-term current use of insulin ([facility]) E08.65 E08.22 N18.3 Z79.4 11. Elevated troponin R74.8 12. Essential hypertension I10 13. Gastroesophageal reflux disease, esophagitis presence not specified K21.9 14. HOCM (hypertrophic obstructive cardiomyopathy) ([facility]) I42.1 15. Hyperkalemia E87.5 16. Hyponatremia E87.1 17. Class 1 obesity due to excess calories with serious comorbidity and body mass index (BMI) of 34.0 to 34.9 in adult E66.09 Z68.34 18. Sleep apnea, unspecified type G47.30 Plan The Patient was ADMITTED TO: Regular nursing floor. Condition at time of disposition: improved and stable SIGNATURE: MD Leandro Michelle MD 01/20/18 1528 NT PRO BNP Collected: 01/20/2018 Status: F Source: [place] 1:02 PM [facility] OTHER CAMPUS REPOSITORY TYPE CODE TESTS RESULT OUT OF REFERENCE UNITS RANGE LAB PBNP <450 pg/mL High PRO B Natr 2145 Peptide Performed By: #### NTBNP #### [facility] [address] [place] [address] TROPONIN T Collected: 01/20/2018 Status: F Source: [place] 1:02 PM [facility] OTHER CAMPUS REPOSITORY TYPE CODE TESTS RESULT OUT OF REFERENCE UNITS RANGE LAB TROPT 0.000-0.029 ng/mL High Troponin T 0.068 Result Comment: Called to and read back by: Dr Daly Almonte ED 01/20/18 [address] Performed By: #### MARIN #### [facility] [address] [place] [address] CBC AND DIFFERENTIAL Collected: 01/20/2018 Status: F Source: [place] 12:50 PM [facility] OTHER [place] REPOSITORY TYPE CODE TESTS RESULT OUT OF REFERENCE UNITS RANGE LAB WBC 3.70-11.00 k/uL WBC 8.64 LAB RBC 3.90-5.20 m/uL RBC 4.06 LAB HGB 11.5-15.5 g/dL Hemoglobin 12.5 LAB HCT 36.0-46.0 % Hematocrit 38.8 LAB MCV 80.0-100.0 fL MCV 95.6 LAB MCH 26.0-34.0 pG MCH 30.8 LAB MCHC 30.5-36.0 g/dL MCHC 32.2 LAB RDWCV 11.5-15.0 % RDW-CV 14.8 LAB PLTCT 150-400 k/uL Low Platelet Count 138 LAB MPV 9.0-12.7 fL MPV 10.4 LAB ANEUT % Neut% 86.0 LAB AANEUT 1.45-7.50 k/uL Abs Neut 7.43 LAB ALYMP % Lymph% 8.8 LAB AALYMP 1.00-4.00 k/uL Low Abs Lymph 0.76 LAB AMONO % Stoddard% 4.4 LAB AAMONO <0.87 k/uL Abs Stoddard 0.38 LAB AEOS % Eosin% 0.3 LAB AAEOS <0.46 k/uL Abs Eosin 0.03 LAB ABASO % Baso% 0.5 LAB AABASO <0.11 k/uL Abs Baso 0.04 Performed By: #### CBCDIF, PT, PTT, MG1, CMP #### [facility] [address] [place] [address] PROTIME Collected: 01/20/2018 Status: F Source: [place] 12:50 PM [facility] OTHER CAMPUS REPOSITORY TYPE CODE TESTS RESULT OUT OF RANGE REFERENCE UNITS LAB PSEC 9.7-13.0 sec PT Sec 10.6 LAB INR 0.9-1.3 PT INR 1.0 Result Comment: Vitamin K Antagonist (VKA) Therapeutic Range: INR 2 to 3 (Target INR of 2.5) Note: For patients treated with VKA drugs, such as warfarin, the [place] [employer] 2012 Guideline recommends a therapeutic INR range of 2 to 3 (target INR of 2.5). This recommendation includes high-risk patients with antiphospholipid syndrome with previous arterial or venous thromboembolism, current-generation mechanical or bioprosthetic aortic heart valve replacement. Note: Patients with mechanical aortic valve replacement and additional risk factors for thromboembolic events (atrial fibrillation, previous thromboembolism, LV dysfunction, hypercoagulable conditions) or an older generation mechanical AVR (i.e., ball in-Cage) or any mechanical MVR should have a INR therapeutic range of 2.5 to 3.5 (target INR of 3). Stella GH, et al. Chest 2012, 141:7S-47S Jose R RA, et al. [facility] 2017, 70: 252-289 Performed By: #### CBCDIF, PT, PTT, MG1, CMP #### [facility] [address] [place] [address] APTT Collected: 01/20/2018 Status: F Source: [place] 12:50 PM [facility] REPOSITORY TYPE CODE TESTS RESULT OUT OF RANGE REFERENCE UNITS LAB APTT 23.0-32.4 sec APTT 25.7 Result Comment: Unfractionated Heparin Therapeutic Ranges: Standard Heparin Nomogram: 53 to 78 seconds (anti-Xa level of 0.3 to 0.7 U/ml) Low Dose/ACS Nomogram: 49 to 67 seconds (anti-Xa level of 0.2 to 0.5 U/ml) Stroke Treatment Nomogram: 49 to 67 seconds (anti-Xa level of 0.2 to 0.5 U/ml) Note: The APTT therapeutic range has been determined for the current lot of laboratory APTT reagent in use throughout the [facility]. Performed By: #### CBCDIF, PT, PTT, MG1, CMP #### [facility] [address] [place] [address] MAGNESIUM Collected: 01/20/2018 Status: F Source: [place] 12:50 [facility] REPOSITORY TYPE CODE TESTS RESULT OUT OF REFERENCE UNITS RANGE LAB MG 1.7-2.3 mg/dL Magnesium 2.1 Performed By: #### CBCDIF, PT, PTT, MG1, CMP #### [facility] [address] [place] [address] COMP METABOLIC PANEL Collected: 01/20/2018 Status: F Source: [place] 12:50 PM [facility] REPOSITORY TYPE CODE TESTS RESULT OUT OF REFERENCE UNITS RANGE LAB TP 6.3-8.0 g/dL Protein, Total 6.4 LAB ALB 3.9-4.9 g/dL Low Albumin 3.3 LAB CA 8.5-10.2 mg/dL Calcium, Total 8.9 LAB TBIL 0.2-1.3 mg/dL Bilirubin, Total 0.5 LAB ALKP 32-117 U/L Alkaline High Phosphatase 157 LAB AST 13-35 U/L AST 13 LAB GLU 74-99 mg/dL Glucose High 832 Result Comment: The [place] [employer] (ADA) provides guidance for cutoff values for fasting glucose and random glucose. The ADA defines fasting as no caloric intake for at least 8 hours. Fas ting plasma glucose results between 100 to 125 mg/dL indicate increased risk for diabetes (prediabetes). Fasting plasma glucose results greater than or equal to 126 mg/dL meet the criteria for diagnosis of diabetes. In the absence of unequivocal hyperglycemia, results should be confirmed by repeat testing. In a patient with classic symptoms of hyperglycemia or hyperglycemic crisis, random plasma glucose results greater than or equal to 200 mg/dL meet the criteria for diagnosis of diabetes. Reference: Standards of Medical Care in Diabetes 2016, [place] [employer]. Diabetes Care. 2016.39(Suppl 1). No call per procedure. 01/20/2018 [address] LAB BUN 7-21 mg/dL BUN High 38 LAB CRET 0.58-0.96 mg/dL Creatinine High 1.40 LAB NA 136-144 mmol/L Low Sodium 126 Result Comment: Rechecked LAB K 3.7-5.1 mmol/L High Potassium 5.2 LAB CL 97-105 mmol/L Low Chloride 85 LAB CO2 22-30 mmol/L CO2 High 31 LAB AGAP 9-18 mmol/L Anion Gap 10 LAB ALT 7-38 U/L ALT 24 LAB GFRAA eGFR- Amer. 44 LAB GFRNAA . eGFR-All Other Races 37 Result Comment: eGFR (Estimated GFR) Units of measure: mL/min/1.73 meters squared eGFR is derived from the reexpressed MDRD Study equation using the following parameters: serum creatinine, age, gender and race. The creatinine assay has been calibrated to be traceable to IDMS. An eGFR <60 mL/min/1.73m2 for >3 months is consistent with chronic kidney disease. Refer to KDOQI guidelines for clinical interpretation. In patients with unstable renal function, e.g. those with acute kidney injury, the eGFR may not accurately reflect actual GFR. Performed By: #### CBCDIF, PT, PTT, MG1, CMP #### [facility] [address] [place] [address] CK, TOTAL AND CKMB Collected: 01/20/2018 Status: F Source: [place] 12:50 PM [facility] OTHER CAMPUS REPOSITORY TYPE CODE TESTS RESULT OUT OF REFERENCE UNITS RANGE LAB CK 42-196 U/L Low 37 CK LAB MB <4.3 ng/mL High MB 5.8 LAB CKMBRI 0.0-4.0 % CK CK MB MB % not % reported with CK <100 U/L. Performed By: #### CKCKMB #### [facility] [address] [facility] [phone] HIGH SENS TROPONIN T Collected: 01/20/2018 Status: F Source: [place] 12:50 PM [facility] OTHER [place] REPOSITORY TYPE CODE TESTS RESULT OUT OF REFERENCE UNITS RANGE LAB HSTN <12 ng/L High High Sensitivity MARIN 63 Result Comment: When assessing risk for acute coronary syndromes: In patients undergoing blood draw greater than or equal to 2 hours from symptom onset, with history of very low to moderate risk and non -ischemic ECG, an initial hs-Troponin T less than 12 ng/L AND a 1 hour delta hs- Troponin T less than 3 ng/L should be considered very low risk for 30 day MACE. Called to and read back by: Maryann Almonte ED 01/20/2018 Joycelyn Presley Performed By: #### HSTNT #### [facility] [address] [place] [address] KIDNEY AND BLADDER Observed: 01/19/2018 Status: F Source: [place] 1:02 PM [facility] REPOSITORY [facility] Imaging Services [address] [place] [id number] Kidney and Bladder MR#: [id number] Acct: [id number] Name: LUZ RUSH Rep #: [id number] : 1940 F 77 From: Mandy Davila MD PCP: Mook Kamara MD Status: REG CLI Study: Kidney and Bladder Date of Exam: 01/19/18 Exam# [id number] Ordering Dr: Jonna Martin MD STUDY: RENAL ULTRASOUND - COMPLETE REASON FOR EXAM: Female, 77 years old. Chronic renal disease TECHNIQUE: Transverse and longitudinal imaging of the kidneys and bladder was obtained using real-time ultrasound. COMPARISON: None. FINDINGS: RIGHT KIDNEY: The right kidney is normal in location. The right kidney measures 12.3 x 5.5 x 6.4 cm. The renal cortex is normal in appearance. The renal cortex measures 1.4 cm. There is no demonstrated renal mass. There is no dilatation of the collecting system. There is a possible duplicated system in the right kidney. There is an echogenic focus in the upper pole of the right kidney measuring 5 mm. LEFT KIDNEY: The left kidney is normal in location. The left kidney measures 11.8 x 4.8 x 5.3 cm. The renal cortex is normal in appearance. The renal cortex measures 1.3 cm. There is no demonstrated renal mass. There is no dilatation of the collecting system. There is an echogenic focus in the upper pole of the left kidney measuring 4 mm. BLADDER: The distended urinary bladder has a volume of 150 ml. The bladder shows a normal wall thickness. There is no demonstrated mass in the bladder. The right ureteral jet was visualized. The left ureteral jet was visualized. US/Kidney and Bladder IMPRESSION: The kidneys are normal in size and echogenicity without hydronephrosis. There may be calyceal stones in the upper poles of both kidneys. Incidentally noted is splenic prominence, measuring almost 15 cm in size. Electronically Signed: Mandy Davila MD at 14:52 EDT Tel Direct: [phone], Service support , CC: Jonna Martin MD; Mook Kamara MD Service Delivery Supervisor: Signed PROGRESS Observed: 01/18/2018 Status: COMPLETED Source: [place] 1:32 PM CLINIC OTHER CAMPUS REPOSITORY HNO ID: [id number] Author: Aren Cardona Service: (none) Author Type: Physician Type: Progress Notes Filed: 01/18/2018 5:24 PM Note Text: PERTINENT CARDIAC HISTORY ASHD - CABGx3 2003, PCIx6 RCA 2013, PCIx3 2014 HCM - septal myectomy 2003 HTN DM HL MARLA - unable to tolerate CPAP PAF CRF CHF - systolic, DAMION-I/ARB intolerance (CRF) Cardiomyopathy - ischemic, ICD 2015, revised 11/2016, beta lenny intolerance ADHERENCE TO GUIDELINES DAMION-I or ARB for HF with prior LVEF<40 (NQF 0081) - CRF ASA or Plavix for ASHD (NQF 0067) - restart Beta lenny for ASHD with prior NE or prior LVEF<40 (NQF 0070) - COPD Beta lenny for HF with prior LVEF<40 (NQF 0083) - COPD DAMION-I or ARB for ASHD with DM or prior LVEF<40 (NQF 0066) - CRF Statin therapy for ASHD or FHL or DM - met BMI documented and plan if >25 (NQF 0421) - lifestyle recommendation form Tobacco use screening and referral (NQF 0028) - lifestyle recommendation form Recommendation for whole food, plant based diet - lifestyle recommendation form CLINICAL IMPRESSION/PLAN: Luz Baca is doing much better with regard to her heart failure, now that her respiratory function has improved. There is no longer evidence of a pleural effusion. She continues to make good progress. We may be able to decrease her diuretic therapy at this time. I will review her labs and have asked for them to be sent to us. I will see her in 4 months or as needed. Written and verbal health teaching given to patient, patient verbalizes understanding and agrees with treatment plan. DIAGNOSIS FOR VISIT: CHF ASHD HISTORY OF PRESENT ILLNESS Luz Baca returns for follow-up of her heart failure and coronary disease. She had a subsequent admission after my last office visit. She had further respiratory decompensation and had a one week hospital stay. She continues to make good progress. Her peripheral edema has improved. Chest discomfort has gotten better. She has taken nitroglycerin with intermittent relief. Edema is better. She's had no syncope. She denies TIAs, amaurosis and claudication. ALLERGIES: ALLERGIES Allergen Reactions - Bactrim [Sulfametho* Other: See Comments My throat swells up. - Latex Rash, Itching Itching and welts. No wheezing or shortness of breath. - Penicillins Rash, Itching Tolerated ceftriaxone during 11/2017 admission and cefepime during 12/2017 admission - Tetracycline Rash, GI Upset Emesis and diarrhea. - Atorvastatin Rash - Codeine Other: See Comments Numbness - Dilaudid [Hydromorp* Mental Status Change - Meperidine - Pentazocine - Pioglitazone Unknown - Propoxyphene CURRENT OUTPATIENT MEDICATIONS: furosemide (LASIX) 40 mg tablet Take 1.5 tablets by mouth twice daily. isosorbide mononitrate ER (IMDUR) 60 mg 24 hr tablet Take 1 tablet by mouth once daily. predniSONE (DELTASONE) 10 mg tablet Take 4 tabs daily x 3 days, then 3 tabs x 3 days, 2 tabs x 3 days, then 1 tab x3 days with food. pantoprazole DR (PROTONIX) 40 mg tablet Take 1 tablet by mouth twice daily. insulin aspart U-100 (NOVOLOG FLEXPEN U-100 INSULIN) 100 unit/mL inpn Inject 10 Units subcutaneously three times daily with meals. insulin glargine (LANTUS SOLOSTAR U-100 INSULIN) 100 unit/mL (3 mL) inpn Inject 45 Units subcutaneously every morning. insulin glargine (LANTUS SOLOSTAR U-100 INSULIN) 100 unit/mL (3 mL) inpn Inject 30 Units subcutaneously daily at bedtime. potassium chloride ER (K-DUR, KLOR-CON) 10 mEq tablet TAKE ONE TABLET BY MOUTH DAILY WITH BREAKFAST apixaban (ELIQUIS) 5 mg tab(s) Take 5 mg by mouth twice daily. simvastatin (ZOCOR) 40 mg tablet Take 40 mg by mouth every morning. spironolactone (ALDACTONE) 25 mg tablet Take 1 tablet by mouth once daily. ipratropium-albuterol (DUONEB) 0.5 mg-3 mg(2.5 mg base)/3 mL nebu Inhale 3 mL as instructed every 4 hours as needed. guaiFENesin-dextromethorphan (ROBITUSSIN DM) 100-10 mg/5 mL syrup Take 5-10 mL by mouth every 6 hours as needed for Cough. albuterol (PROVENTIL) 5 mg/mL nebu Inhale 0.5 mL as instructed one time only for 1 dose. 1 DOSE NOW - BACK OFFICE. PLACE 0.5 ML PER DROPPER AND 2.5 ML OF NORMAL SALINE INTO RESERVOIR. nitroglycerin sublingual (NITROQUICK) 0.4 mg SL tablet Dissolve 1 tablet under the tongue every 5 minutes as needed. gabapentin (NEURONTIN) 300 mg capsule Take 2 capsules by mouth three times daily for 30 days. albuterol HFA (VENTOLIN HFA) 90 mcg/actuation inhaler Inhale 2 Puffs as instructed every 4 hours as needed. OXYGEN, HOME THERAPY, Inhale 2.5 L/min as instructed continuous. 3 L/min when leaves home. PHYSICAL EXAMINATION: VITAL SIGNS: BP 136/80 Pulse 66 Ht 5' 8 (1.73m) Wt 228 lb 8 oz (103.6kg) BMI 34.75 kg/(m2). Chest: There are a few scattered rhonchi. There is mild expiratory prolongation. Trachea is midline. Air entry is equal. Cardiac: Regular rhythm. S1 and S2 are normal. PMI is nondisplaced. There is a 1/6 systolic ejection murmur. Carotids are brisk without bruits. JVP is less than 10 cm. Abdomen: Soft and nontender. There are no pulsatile masses or bruits. No liver enlargement. Bowel sounds are active. Extremities: 1 plus chronic brawny edema edema. Pulses are diminished. Records from [place] were reviewed. Renal function has improved. Labs were done today and are pending. Electronically Signed: Aren Cardona MD January 18, 2018 1:32 PM CC: Jameson Kamara MD CNOV Observed: 01/18/2018 Status: COMPLETED Source: [place] 1:30 PM [facility] OTHER [place] REPOSITORY Office Visit (AGCARDWST) LUZ BACA ([id number]) 1940 F Date Time Provider Department 01/18/18 1:30 PM AREN CARDONA During your visit today, we recorded the following information about you: Pulse Blood pressure Weight Height 66/minute 136/80 103.6 kg 1.727 m Aren Cardona MD 01/18/2018 5:24 PM Signed PERTINENT CARDIAC HISTORY ASHD - CABGx3 2003, PCIx6 RCA 2013, PCIx3 2014 HCM - septal myectomy 2003 HTN DM HL MARLA - unable to tolerate CPAP PAF CRF CHF - systolic, DAMION-I/ARB intolerance (CRF) Cardiomyopathy - ischemic, ICD 2015, revised 11/2016, beta lenny intolerance ADHERENCE TO GUIDELINES DAMION-I or ARB for HF with prior LVEFANDlt;40 (NQF 0081) - CRF ASA or Plavix for ASHD (NQF 0067) - restart Beta lenny for ASHD with prior NE or prior LVEFANDlt;40 (NQF 0070) - COPD Beta lenny for HF with prior LVEFANDlt;40 (NQF 0083) - COPD DAMION-I or ARB for ASHD with DM or prior LVEFANDlt;40 (NQF 0066) - CRF Statin therapy for ASHD or FHL or DM - met BMI documented and plan if ANDgt;25 (NQF 0421) - lifestyle recommendation form Tobacco use screening and referral (NQF 0028) - lifestyle recommendation form Recommendation for whole food, plant based diet - lifestyle recommendation form CLINICAL IMPRESSION/PLAN: Luz Baca is doing much better with regard to her heart failure, now that her respiratory function has improved. There is no longer evidence of a pleural effusion. She continues to make good progress. We may be able to decrease her diuretic therapy at this time. I will review her labs and have asked for them to be sent to us. I will see her in 4 months or as needed. Written and verbal health teaching given to patient, patient verbalizes understanding and agrees with treatment plan. DIAGNOSIS FOR VISIT: CHF ASHD HISTORY OF PRESENT ILLNESS Luz Baca returns for follow-up of her heart failure and coronary disease. She had a subsequent admission after my last office visit. She had further respiratory decompensation and had a one week hospital stay. She continues to make good progress. Her peripheral edema has improved. Chest discomfort has gotten better. She has taken nitroglycerin with intermittent relief. Edema is better. She's had no syncope. She denies TIAs, amaurosis and claudication. ALLERGIES: ALLERGIES Allergen Reactions - Bactrim [Sulfametho* Other: See Comments ANDquot;My throat swells up.ANDquot; - Latex Rash, Itching Itching and welts. No wheezing or shortness of breath. - Penicillins Rash, Itching Tolerated ceftriaxone during 11/2017 admission and cefepime during 12/2017 admission - Tetracycline Rash, GI Upset Emesis and diarrhea. - Atorvastatin Rash - Codeine Other: See Comments Numbness - Dilaudid [Hydromorp* Mental Status Change - Meperidine - Pentazocine - Pioglitazone Unknown - Propoxyphene CURRENT OUTPATIENT MEDICATIONS: furosemide (LASIX) 40 mg tablet Take 1.5 tablets by mouth twice daily. isosorbide mononitrate ER (IMDUR) 60 mg 24 hr tablet Take 1 tablet by mouth once daily. predniSONE (DELTASONE) 10 mg tablet Take 4 tabs daily x 3 days, then 3 tabs x 3 days, 2 tabs x 3 days, then 1 tab x3 days with food. pantoprazole DR (PROTONIX) 40 mg tablet Take 1 tablet by mouth twice daily. insulin aspart U-100 (NOVOLOG FLEXPEN U-100 INSULIN) 100 unit/mL inpn Inject 10 Units subcutaneously three times daily with meals. insulin glargine (LANTUS SOLOSTAR U-100 INSULIN) 100 unit/mL (3 mL) inpn Inject 45 Units subcutaneously every morning. insulin glargine (LANTUS SOLOSTAR U-100 INSULIN) 100 unit/mL (3 mL) inpn Inject 30 Units subcutaneously daily at bedtime. potassium chloride ER (K-DUR, KLOR-CON) 10 mEq tablet TAKE ONE TABLET BY MOUTH DAILY WITH BREAKFAST apixaban (ELIQUIS) 5 mg tab(s) Take 5 mg by mouth twice daily. simvastatin (ZOCOR) 40 mg tablet Take 40 mg by mouth every morning. spironolactone (ALDACTONE) 25 mg tablet Take 1 tablet by mouth once daily. ipratropium-albuterol (DUONEB) 0.5 mg-3 mg(2.5 mg base)/3 mL nebu Inhale 3 mL as instructed every 4 hours as needed. guaiFENesin-dextromethorphan (ROBITUSSIN DM) 100-10 mg/5 mL syrup Take 5-10 mL by mouth every 6 hours as needed for Cough. albuterol (PROVENTIL) 5 mg/mL nebu Inhale 0.5 mL as instructed one time only for 1 dose. 1 DOSE NOW - BACK OFFICE. PLACE 0.5 ML PER DROPPER AND 2.5 ML OF NORMAL SALINE INTO RESERVOIR. nitroglycerin sublingual (NITROQUICK) 0.4 mg SL tablet Dissolve 1 tablet under the tongue every 5 minutes as needed. gabapentin (NEURONTIN) 300 mg capsule Take 2 capsules by mouth three times daily for 30 days. albuterol HFA (VENTOLIN HFA) 90 mcg/actuation inhaler Inhale 2 Puffs as instructed every 4 hours as needed. OXYGEN, HOME THERAPY, Inhale 2.5 L/min as instructed continuous. 3 L/min when leaves home. PHYSICAL EXAMINATION: VITAL SIGNS: BP 136/80 Pulse 66 Ht 5' 8ANDquot; (1.73m) Wt 228 lb 8 oz (103.6kg) BMI 34.75 kg/(m2). Chest: There are a few scattered rhonchi. There is mild expiratory prolongation. Trachea is midline. Air entry is equal. Cardiac: Regular rhythm. S1 and S2 are normal. PMI is nondisplaced. There is a 1/6 systolic ejection murmur. Carotids are brisk without bruits. JVP is less than 10 cm. Abdomen: Soft and nontender. There are no pulsatile masses or bruits. No liver enlargement. Bowel sounds are active. Extremities: 1 plus chronic brawny edema edema. Pulses are diminished. Records from [place] were reviewed. Renal function has improved. Labs were done today and are pending. Electronically Signed: Aren Cardona MD January 18, 2018 1:32 PM CC: MD Aren Samuels MD 01/18/2018 1:32 PM Signed Please send us a copy of today's blood work LIFESTYLE CHANGE A healthy lifestyle is the most important component of your overall treatment plan. Please give serious thought to the following areas and commit to making medical terminologist changes. EAT A WHOLE FOOD, PLANT BASED DIET The nutrition your body gets is more important than the medicine you take. What matters most is the overall way you eat. We encourage you to minimize the use of animal products (which include dairy and all meats except fatty fish) and use whole, unprocessed plant foods to provide your protein, vitamins and other nutrients. We have a lot of information to share with you on this topic. We also hold Shared Medical Appointments, where you can come visit with Dr. Cardona in the company of other patients and spend over an hour talking about the challenges of changing the way you eat. This is not a ANDquot;dietANDquot;. It is a way of life that you will keep with you. EXERCISE REGULARLY It is not important to spend hours in the gym, lifting weights and perspiring heavily. A total of 2-3 hours per week of aerobic (causing you to be moderately short of breath) exercise is sufficient to improve your health. Talk to us before you begin a new exercise program, if you have heart disease or experience shortness of breath or chest pain. REDUCE STRESS Chronic emotional and physical stress leads to disease. Ways of reducing stress include meditation, visualization, prayer, yoga and other forms of relaxation therapy. Consistency is the aguilera. Find a technique that works for you and do it every day. CULTIVATE RELATIONSHIPS Loneliness and isolation have a major negative impact on health. Seek out others who can love, care for and nurture you. Avoid hurtful relationships. MAINTAIN IDEAL BODY WEIGHT The best way to do this is to do all the things above. Our bodies naturally find the right weight if we keep moving and feed ourselves the right food. If your BMI is greater than 25, we strongly recommend a referral to a weight management program. Please speak to us or your family physician about available programs. AVOID NICOTINE IN ALL FORMS This includes all tobacco products, whether chewed, smoked, vaped, or rubbed on the skin. Smoking cessation programs, which can make use of tobacco substitutes, medications to suppress cravings and behavior management, are available. Please contact your family physician about programs in your area. Referring Provider: AREN CARDONA [[id number]] Allergies As of Date: 01/18/2018 Noted Allergy Reaction BACTRIM (SULFAMETHOXAZOLE-TRIMETH*05/17/2017 14 - Other: See Comments Comments: My throat swells up. LATEX 05/17/2017 2 - Rash 9 - Itching Comments: Itching and welts. No wheezing or shortness of breath. PENICILLINS 07/14/2004 2 - Rash 9 - Itching Comments: Tolerated ceftriaxone during 11/2017 admission and cefepime during 12/2017 admission TETRACYCLINE 09/29/2010 2 - Rash 8 - GI Upset Comments: Emesis and diarrhea. ATORVASTATIN 05/17/2017 2 - Rash CODEINE 05/17/2017 14 - Other: See Comments Comments: Numbness DILAUDID (HYDROMORPHONE (BULK)) 05/17/2017 1 - Mental Status Change MEPERIDINE 07/14/2004 PENTAZOCINE 07/14/2004 PIOGLITAZONE 05/17/2017 16 - Unknown PROPOXYPHENE 07/14/2004 Date Reviewed: 01/18/2018 Reviewed by: Seferino Mckeon - Fully Assessed Reason for Visit: Follow Up [171] Primary Visit Diagnosis:Chronic systolic CHF (congestive heart failure) (HCC) [I50.22] Other Visit Diagnosis:ASHD (arteriosclerotic heart disease) [I25.10] Prescriptions as of 01/18/2018 Sig: FUROSEMIDE 40 MG TABLET Take 1.5 tablets by mouth twi* ISOSORBIDE MONONITRATE ER 60 * Take 1 tablet by mouth once d* PREDNISONE 10 MG TABLET Take 4 tabs daily x 3 days, t* PANTOPRAZOLE 40 MG TABLET,DEL* Take 1 tablet by mouth twice * INSULIN ASPART U-100 100 UNI* Inject 10 Units subcutaneousl* INSULIN GLARGINE (U-100) 100 * Inject 45 Units subcutaneousl* INSULIN GLARGINE (U-100) 100 * Inject 30 Units subcutaneousl* POTASSIUM CHLORIDE ER 10 MEQ * TAKE ONE TABLET BY MOUTH JANETH* APIXABAN 5 MG TABLET Take 5 mg by mouth twice janeth* SIMVASTATIN 40 MG TABLET Take 40 mg by mouth every mor* SPIRONOLACTONE 25 MG TABLET Take 1 tablet by mouth once d* IPRATROPIUM-ALBUTEROL 0.5 MG-* Inhale 3 mL as instructed leanne* DEXTROMETHORPHAN-GUAIFENESIN * Take 5-10 mL by mouth every 6* ALBUTEROL SULFATE CONCENTRATE* Inhale 0.5 mL as instructed o* NITROGLYCERIN 0.4 MG SUBLINGU* Dissolve 1 tablet under the t* GABAPENTIN 300 MG CAPSULE Take 2 capsules by mouth thre* Patient taking differently: Take 600 mg by mouth twice da* ALBUTEROL SULFATE HFA 90 MCG/* Inhale 2 Puffs as instructed * OXYGEN (HOME THERAPY) Inhale 2.5 L/min as instructe* Problem List As Of Date 01/18/2018 Noted Resolved HOCM (hypertrophic obstructive cardiomyopathy) * More... SVT (supraventricular tachycardia) [I47.1] More... Carotid artery disease (HCC) [I77.9] More... CAD (coronary artery disease) [I25.10] Essential hypertension [I10] More... Hyperlipidemia [E78.5] More... Pneumonia [J18.9] 10/27/2017 More... COPD (chronic obstructive pulmonary disease) [J* More... Sleep apnea [G47.30] More... HH (hiatus hernia) [K44.9] GERD (gastroesophageal reflux disease) [K21.9] More... Renal insufficiency [N28.9] More... Arthritis [M19.90] Numbness and tingling of right leg [R20.0, R20.* Depression [F32.9] Diabetes [E11.9] Atrial fibrillation (HCC) [I48.91] INVALID FOR* More... Diabetes mellitus due to underlying condition, *INVALID FOR* More... SUMMARY [V999.95] INVALID FOR* More... Dyspnea [R06.00] INVALID FOR* More... Heart failure, systolic, acute [I50.21] INVALID FOR* More... Obesity [E66.9] INVALID FOR* More... 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*INVALID FOR* Priority: B Elevated troponin [R74.8] INVALID FOR* COPD with acute exacerbation (HCC) [J44.1] INVALID FOR* Priority: D Acute on chronic respiratory failure with hypox*INVALID FOR* Priority: C HCAP (healthcare-associated pneumonia) [J18.9] INVALID FOR* Priority: A Pulmonary hypertension [I27.20] INVALID FOR* Oral thrush [B37.0] INVALID FOR* Hypoxemia [R09.02] INVALID FOR* Other instructions from your clinician: Please send us a copy of today's blood work LIFESTYLE CHANGE A healthy lifestyle is the most important component of your overall treatment plan. Please give serious thought to the following areas and commit to making medical terminologist changes. EAT A WHOLE FOOD, PLANT BASED DIET The nutrition your body gets is more important than the medicine you take. What matters most is the overall way you eat. We encourage you to minimize the use of animal products (which include dairy and all meats except fatty fish) and use whole, unprocessed plant foods to provide your protein, vitamins and other nutrients. We have a lot of information to share with you on this topic. We also hold Shared Medical Appointments, where you can come visit with Dr. Cardona in the company of other patients and spend over an hour talking about the challenges of changing the way you eat. This is not a diet. It is a way of life that you will keep with you. EXERCISE REGULARLY It is not important to spend hours in the gym, lifting weights and perspiring heavily. A total of 2-3 hours per week of aerobic (causing you to be moderately short of breath) exercise is sufficient to improve your health. Talk to us before you begin a new exercise program, if you have heart disease or experience shortness of breath or chest pain. REDUCE STRESS Chronic emotional and physical stress leads to disease. Ways of reducing stress include meditation, visualization, prayer, yoga and other forms of relaxation therapy. Consistency is the aguilera. Find a technique that works for you and do it every day. CULTIVATE RELATIONSHIPS Loneliness and isolation have a major negative impact on health. Seek out others who can love, care for and nurture you. Avoid hurtful relationships. MAINTAIN IDEAL BODY WEIGHT The best way to do this is to do all the things above. Our bodies naturally find the right weight if we keep moving and feed ourselves the right food. If your BMI is greater than 25, we strongly recommend a referral to a weight management program. Please speak to us or your family physician about available programs. AVOID NICOTINE IN ALL FORMS This includes all tobacco products, whether chewed, smoked, vaped, or rubbed on the skin. Smoking cessation programs, which can make use of tobacco substitutes, medications to suppress cravings and behavior management, are available. Please contact your family physician about programs in your area. Encounter Status:Closed by AREN CARDONA MD on 01/18/18 PROGRESS Observed: 01/18/2018 Status: COMPLETED Source: [place] 12:21 PM [facility] REPOSITORY O ID: [id number] Author: Jose C Rodriguez Service: (none) Author Type: Physician Type: Progress Notes Filed: 01/18/2018 12:26 PM Note Text: Subjective: Patient presents to clinic c/o painful toenails. They state that the nails are especially painful with shoe gear and pressure. Patient states that nails 1-5 b/l are painful. Patient states she recently bumped her right foot but has no pain. She states that she often walks barefoot. Patient admits to being diabetic and states that their blood sugar was 185 mg/dL this AM. No other pedal complaints at this time. Patient states no change in medications or medical history since last visit. Objective: Patient presents to clinic ambulating in [facility] Vasc: DP and PT pulses are nonpalpable bilateral. CFT is less than 5 seconds bilateral. Skin temperature is warm to cool proximal to distal bilateral. There is mild edema. Varicosities are noted b/l. Neuro: Protective sensation is absent to the foot and toes when tested with the 5.07 SWM bilateral. Vibratory sensation is absent at the hallux IPJ bilateral. The hallux is downgoing bilateral. Derm: Nails 1-5 b/l are painful, discolored-yellow, thick, crumbly, dystrophic and with subungal debris. There is evidence of dry blood beneath right 3rd toenail. No bruising is noted to right foot. Skin is of normal turgor, texture and hair growth is absent bilateral. There are very superficial callus to b/l heels. No ulceration noted. Ortho: Muscle strength is 5/5 for all pedal groups tested. Ankle joint DF is decreased with the knee extended with no pain or crepitus noted. 1st MPJ ROM is decreased bilateral. Assessment: (B35.1) Onychomycosis (primary encounter diagnosis) (M79.675) Pain in toe of left foot (M79.674) Pain in toe of right foot (E11.49) Other diabetic neurological complication associated with type 2 diabetes mellitus (HCC (I73.9) PAD (peripheral artery disease) ([facility]) Hyperkeratosis. Plan: Patient was seen and evaluated. Nails 1-5 bilateral were debrided in length and thickness. There is very superficial dry blood of right 3rd toe. She states she recently bumped her toe. Offered xray but she declined. Informed patient that needs to wear shoes at all times. Informed patient that she has very superficial sore, nothing severe. Offered her to come in later this week to assure healing. She states she will just monitor at home. If she has any issues or change in color to toe, she is to present to ed immediately. Patient was instructed on the continued importance of diabetic foot care along with proper diet and keeping their blood sugar under control to prevent complications. She is to continue to apply lotion to feet daily. If callus returns to feet, she is to come in and have filed down. Patient is to RTC in 3-4 months. Jose C Rodriguez DPM PROGRESS Observed: 01/18/2018 Status: COMPLETED Source: [place] 11:14 AM [facility] REPOSITORY HNO ID: [id number] Author: Katie Gonzalez RN Service: (none) Author Type: (none) Type: Progress Notes Filed: 01/18/2018 12:26 PM Note Text: Pt reports that her blood sugar was 185 this morning. CNOV Observed: 01/18/2018 Status: COMPLETED Source: [place] 11:10 AM [facility] REPOSITORY Office Visit (PODIWS) LUZ BACA ([id number]) 1940 F Date Time Provider Department 01/18/18 11:10 AM JOSE C RODRIGUEZ During your visit today, we recorded the following information about you: Katie Gonzalez RN 01/18/2018 12:26 PM Signed Pt reports that her blood sugar was 185 this morning. Jose C Rodriguez DPM 01/18/2018 12:26 PM Signed Subjective: Patient presents to clinic c/o painful toenails. They state that the nails are especially painful with shoe gear and pressure. Patient states that nails 1-5 b/l are painful. Patient states she recently bumped her right foot but has no pain. She states that she often walks barefoot. Patient admits to being diabetic and states that their blood sugar was 185 mg/dL this AM. No other pedal complaints at this time. Patient states no change in medications or medical history since last visit. Objective: Patient presents to clinic ambulating in [place] Vasc: DP and PT pulses are nonpalpable bilateral. CFT is less than 5 seconds bilateral. Skin temperature is warm to cool proximal to distal bilateral. There is mild edema. Varicosities are noted b/l. Neuro: Protective sensation is absent to the foot and toes when tested with the 5.07 SWM bilateral. Vibratory sensation is absent at the hallux IPJ bilateral. The hallux is downgoing bilateral. Derm: Nails 1-5 b/l are painful, discolored-yellow, thick, crumbly, dystrophic and with subungal debris. There is evidence of dry blood beneath right 3rd toenail. No bruising is noted to right foot. Skin is of normal turgor, texture and hair growth is absent bilateral. There are very superficial callus to b/l heels. No ulceration noted. Ortho: Muscle strength is 5/5 for all pedal groups tested. Ankle joint DF is decreased with the knee extended with no pain or crepitus noted. 1st MPJ ROM is decreased bilateral. Assessment: (B35.1) Onychomycosis (primary encounter diagnosis) (M79.675) Pain in toe of left foot (M79.674) Pain in toe of right foot (E11.49) Other diabetic neurological complication associated with type 2 diabetes mellitus (HCC (I73.9) PAD (peripheral artery disease) ([facility]) Hyperkeratosis. Plan: Patient was seen and evaluated. Nails 1-5 bilateral were debrided in length and thickness. There is very superficial dry blood of right 3rd toe. She states she recently bumped her toe. Offered xray but she declined. Informed patient that needs to wear shoes at all times. Informed patient that she has very superficial sore, nothing severe. Offered her to come in later this week to assure healing. She states she will just monitor at home. If she has any issues or change in color to toe, she is to present to ed immediately. Patient was instructed on the continued importance of diabetic foot care along with proper diet and keeping their blood sugar under control to prevent complications. She is to continue to apply lotion to feet daily. If callus returns to feet, she is to come in and have filed down. Patient is to RTC in 3-4 months. Jose C Rodriguez DPM Referring Provider: JOSE C RODRIGUEZ [[id number]] Allergies As of Date: 01/18/2018 Noted Allergy Reaction BACTRIM (SULFAMETHOXAZOLE-TRIMETH*05/17/2017 14 - Other: See Comments Comments: My throat swells up. LATEX 05/17/2017 2 - Rash 9 - Itching Comments: Itching and welts. No wheezing or shortness of breath. PENICILLINS 07/14/2004 2 - Rash 9 - Itching Comments: Tolerated ceftriaxone during 11/2017 admission and cefepime during 12/2017 admission TETRACYCLINE 09/29/2010 2 - Rash 8 - GI Upset Comments: Emesis and diarrhea. ATORVASTATIN 05/17/2017 2 - Rash CODEINE 05/17/2017 14 - Other: See Comments Comments: Numbness DILAUDID (HYDROMORPHONE (BULK)) 05/17/2017 1 - Mental Status Change MEPERIDINE 07/14/2004 PENTAZOCINE 07/14/2004 PIOGLITAZONE 05/17/2017 16 - Unknown PROPOXYPHENE 07/14/2004 Date Reviewed: 01/18/2018 Reviewed by: Katie Gonzalez RN - Fully Assessed Reason for Visit: Established Patient [175] Cmt: nail care Primary Visit Diagnosis:Onychomycosis [B35.1] Other Visit Diagnoses:Pain in toe of left foot [M79.675] Pain in toe of right foot [M79.674] Other diabetic neurological complication associated with type 2 diabetes mellitus ([facility]) [E11.49] PAD (peripheral artery disease) ([facility]) [I73.9] Prescriptions as of 01/18/2018 Sig: FUROSEMIDE 40 MG TABLET Take 1.5 tablets by mouth twi* ISOSORBIDE MONONITRATE ER 60 * Take 1 tablet by mouth once d* PREDNISONE 10 MG TABLET Take 4 tabs daily x 3 days, t* PANTOPRAZOLE 40 MG TABLET,DEL* Take 1 tablet by mouth twice * INSULIN ASPART U-100 100 UNI* Inject 10 Units subcutaneousl* INSULIN GLARGINE (U-100) 100 * Inject 45 Units subcutaneousl* INSULIN GLARGINE (U-100) 100 * Inject 30 Units subcutaneousl* POTASSIUM CHLORIDE ER 10 MEQ * TAKE ONE TABLET BY MOUTH JANETH* APIXABAN 5 MG TABLET Take 5 mg by mouth twice janeth* SIMVASTATIN 40 MG TABLET Take 40 mg by mouth every mor* SPIRONOLACTONE 25 MG TABLET Take 1 tablet by mouth once d* IPRATROPIUM-ALBUTEROL 0.5 MG-* Inhale 3 mL as instructed leanne* ALBUTEROL SULFATE CONCENTRATE* Inhale 0.5 mL as instructed o* NITROGLYCERIN 0.4 MG SUBLINGU* Dissolve 1 tablet under the t* ALBUTEROL SULFATE HFA 90 MCG/* Inhale 2 Puffs as instructed * OXYGEN (HOME THERAPY) Inhale 2.5 L/min as instructe* DEXTROMETHORPHAN-GUAIFENESIN * Take 5-10 mL by mouth every 6* GABAPENTIN 300 MG CAPSULE Take 2 capsules by mouth thre* Patient taking differently: Take 600 mg by mouth twice da* Problem List As Of Date 01/18/2018 Noted Resolved HOCM (hypertrophic obstructive cardiomyopathy) * More... SVT (supraventricular tachycardia) [I47.1] More... Carotid artery disease (HCC) [I77.9] More... CAD (coronary artery disease) [I25.10] Essential hypertension [I10] More... Hyperlipidemia [E78.5] More... Pneumonia [J18.9] 10/27/2017 More... COPD (chronic obstructive pulmonary disease) [J* More... Sleep apnea [G47.30] More... HH (hiatus hernia) [K44.9] GERD (gastroesophageal reflux disease) [K21.9] More... Renal insufficiency [N28.9] More... Arthritis [M19.90] Numbness and tingling of right leg [R20.0, R20.* Depression [F32.9] Diabetes [E11.9] Atrial fibrillation (HCC) [I48.91] INVALID FOR* More... Diabetes mellitus due to underlying condition, *INVALID FOR* More... SUMMARY [V999.95] INVALID FOR* More... Dyspnea [R06.00] INVALID FOR* More... Heart failure, systolic, acute [I50.21] INVALID FOR* More... Obesity [E66.9] INVALID FOR* More... 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*INVALID FOR* Priority: B Elevated troponin [R74.8] INVALID FOR* COPD with acute exacerbation (HCC) [J44.1] INVALID FOR* Priority: D Acute on chronic respiratory failure with hypox*INVALID FOR* Priority: C HCAP (healthcare-associated pneumonia) [J18.9] INVALID FOR* Priority: A Pulmonary hypertension [I27.20] INVALID FOR* Oral thrush [B37.0] INVALID FOR* Hypoxemia [R09.02] INVALID FOR* Encounter Status:Closed by JOSE C RODRIGUEZ DPM on 01/18/18 PROGRESS Observed: 01/12/2018 Status: COMPLETED Source: [place] 10:37 AM [facility] REPOSITORY HNO ID: [id number] Author: Remi (Allyson) Brent Service: (none) Author Type: Registered Nurse Type: Progress Notes Filed: 01/13/2018 8:48 AM Note Text: PRIMARY CARE COORDINATION FOLLOW-UP NOTE Provider Action/FYI FYI Patient identified by name and date of . YES Spoke to Octavia mesa Concerns: Asked daughter for home BS results since Wednesday. States she doesn't have the meter or log with her. Instructed to please call back with home BS since Wednesday, verbalized understanding and agreement. Watermelon Inspector plan for next outreach: Will follow up one week Signature Remi Kennedy RN January 12, 2018 CNPTOUTREACH Observed: 01/12/2018 Status: COMPLETED Source: [place] 12:00 AM [facility] REPOSITORY Patient Outreach (FAMPWS) LUZ BACA ([id number]) 1940 F Date Time Provider Department 01/12/18 REMI KENNEDY) ANTOINE During your visit today, we recorded the following information about you: Remi Kennedy RN 01/13/2018 8:48 AM Signed PRIMARY CARE COORDINATION FOLLOW-UP NOTE Provider Action/FYI FYI Patient identified by name and date of . YES Spoke to Octavia mesa Concerns: Asked daughter for home BS results since Wednesday. States she doesn't have the meter or log with her. Instructed to please call back with home BS since Wednesday, verbalized understanding and agreement. Watermelon Inspector plan for next outreach: Will follow up one week Signature Remi Kennedy RN January 12, 2018 Allergies As of Date: 01/12/2018 Noted Allergy Reaction BACTRIM (SULFAMETHOXAZOLE-TRIMETH*05/17/2017 14 - Other: See Comments Comments: My throat swells up. LATEX 05/17/2017 2 - Rash 9 - Itching Comments: Itching and welts. No wheezing or shortness of breath. PENICILLINS 07/14/2004 2 - Rash 9 - Itching Comments: Tolerated ceftriaxone during 11/2017 admission and cefepime during 12/2017 admission TETRACYCLINE 09/29/2010 2 - Rash 8 - GI Upset Comments: Emesis and diarrhea. 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] Prescriptions as of 01/12/2018 Sig: FUROSEMIDE 40 MG TABLET Take 1.5 tablets by mouth twi* ISOSORBIDE MONONITRATE ER 60 * Take 1 tablet by mouth once d* PREDNISONE 10 MG TABLET Take 4 tabs daily x 3 days, t* PANTOPRAZOLE 40 MG TABLET,DEL* Take 1 tablet by mouth twice * INSULIN ASPART U-100 100 UNI* Inject 10 Units subcutaneousl* INSULIN GLARGINE (U-100) 100 * Inject 45 Units subcutaneousl* INSULIN GLARGINE (U-100) 100 * Inject 30 Units subcutaneousl* POTASSIUM CHLORIDE ER 10 MEQ * TAKE ONE TABLET BY MOUTH JANETH* APIXABAN 5 MG TABLET Take 5 mg by mouth twice janeth* SIMVASTATIN 40 MG TABLET Take 40 mg by mouth every mor* SPIRONOLACTONE 25 MG TABLET Take 1 tablet by mouth once d* IPRATROPIUM-ALBUTEROL 0.5 MG-* Inhale 3 mL as instructed leanne* DEXTROMETHORPHAN-GUAIFENESIN * Take 5-10 mL by mouth every 6* ALBUTEROL SULFATE CONCENTRATE* Inhale 0.5 mL as instructed o* NITROGLYCERIN 0.4 MG SUBLINGU* Dissolve 1 tablet under the t* GABAPENTIN 300 MG CAPSULE Take 2 capsules by mouth thre* Patient taking differently: Take 600 mg by mouth twice da* ALBUTEROL SULFATE HFA 90 MCG/* Inhale 2 Puffs as instructed * OXYGEN (HOME THERAPY) Inhale 2.5 L/min as instructe* Problem List As Of Date 01/12/2018 Noted Resolved HOCM (hypertrophic obstructive cardiomyopathy) * More... SVT (supraventricular tachycardia) [I47.1] More... Carotid artery disease (HCC) [I77.9] More... CAD (coronary artery disease) [I25.10] Essential hypertension [I10] More... Hyperlipidemia [E78.5] More... Pneumonia [J18.9] 10/27/2017 More... COPD (chronic obstructive pulmonary disease) [J* More... Sleep apnea [G47.30] More... HH (hiatus hernia) [K44.9] GERD (gastroesophageal reflux disease) [K21.9] More... Renal insufficiency [N28.9] More... Arthritis [M19.90] Numbness and tingling of right leg [R20.0, R20.* Depression [F32.9] Diabetes [E11.9] Atrial fibrillation (HCC) [I48.91] INVALID FOR* More... Diabetes mellitus due to underlying condition, *INVALID FOR* More... SUMMARY [V999.95] INVALID FOR* More... Dyspnea [R06.00] INVALID FOR* More... Heart failure, systolic, acute [I50.21] INVALID FOR* More... Obesity [E66.9] INVALID FOR* More... 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*INVALID FOR* Priority: B Elevated troponin [R74.8] INVALID FOR* COPD with acute exacerbation (HCC) [J44.1] INVALID FOR* Priority: D Acute on chronic respiratory failure with hypox*INVALID FOR* Priority: C HCAP (healthcare-associated pneumonia) [J18.9] INVALID FOR* Priority: A Pulmonary hypertension [I27.20] INVALID FOR* Oral thrush [B37.0] INVALID FOR* Hypoxemia [R09.02] INVALID FOR* Encounter Status:Closed by REMI KENNEDY on 01/13/18 PROGRESS Observed: 01/11/2018 Status: COMPLETED Source: [address] 12:49 PM [facility] REPOSITORY HNO ID: [id number] Author: Jameson Adams) Koffi Service: (none) Author Type: Physician Type: Progress Notes Filed: 01/11/2018 12:50 PM Note Text: Reviewed and agree. Will need to recheck glucose readings or Wednesday this week and consider decreasing lantus over the weekend to prevent hypoglycemia. PROGRESS Observed: 01/11/2018 Status: COMPLETED Source: [address] 10:13 AM [facility] REPOSITORY HNO ID: [id number] Author: Remi Briseno) Brent Service: (none) Author Type: Registered Nurse Type: Progress Notes Filed: 01/11/2018 10:24 AM Note Text: PRIMARY CARE COORDINATION FOLLOW-UP NOTE Provider Action/FYI FYI Patient identified by name and date of . YES Spoke to JOSS Kolb nurse at [facility] Summary: TC from [facility] K+ from yesterday was 4.7, Na 133 and Glucose 310. Informed PCC called [facility] Care last night and asked them to call PCP's Cell with lab results. JOSS Elmore nurse informed PCC pt's BS's yesterday were 400+ with her course of Prednisone. PCP increased Lantus to 50 units in AM and 34 units in PM while pt is on prednisone and will decrease doses as pt weans off medication, verbalized understanding. Watermelon Inspector plan for next outreach: Will follow up tomorrow Signature Remi Kennedy RN January 11, 2018 CNPTOUTREACH Observed: 01/11/2018 Status: COMPLETED Source: [address] 12:00 AM [facility] REPOSITORY Patient Outreach (FAMPWS) LUZ BACA ([id number]) 1940 F Date Time Provider Department 01/11/18 REMI KENNEDY (RN) FAMPWS During your visit today, we recorded the following information about you: Remi Kennedy RN 01/11/2018 10:24 AM Signed PRIMARY CARE COORDINATION FOLLOW-UP NOTE Provider Action/FYI FYI Patient identified by name and date of . YES Spoke to JOSS Kolb nurse at [facility] Summary: TC from Kennedi, states K+ from yesterday was 4.7, Na 133 and Glucose 310. Informed PCC called [facility] Care last night and asked them to call PCP's Cell with lab results. Catarina nurse informed PCC pt's BS's yesterday were 400+ with her course of Prednisone. PCP increased Lantus to 50 units in AM and 34 units in PM while pt is on prednisone and will decrease doses as pt weans off medication, verbalized understanding. Watermelon Inspector plan for next outreach: Will follow up tomorrow Signature Remi Kennedy RN January 11, 2018 Allergies As of Date: 01/11/2018 Noted Allergy Reaction BACTRIM (SULFAMETHOXAZOLE-TRIMETH*05/17/2017 14 - Other: See Comments Comments: My throat swells up. LATEX 05/17/2017 2 - Rash 9 - Itching Comments: Itching and welts. No wheezing or shortness of breath. PENICILLINS 07/14/2004 2 - Rash 9 - Itching Comments: Tolerated ceftriaxone during 11/2017 admission and cefepime during 12/2017 admission TETRACYCLINE 09/29/2010 2 - Rash 8 - GI Upset Comments: Emesis and diarrhea. 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] Prescriptions as of 01/11/2018 Sig: FUROSEMIDE 40 MG TABLET Take 1.5 tablets by mouth twi* ISOSORBIDE MONONITRATE ER 60 * Take 1 tablet by mouth once d* PREDNISONE 10 MG TABLET Take 4 tabs daily x 3 days, t* PANTOPRAZOLE 40 MG TABLET,DEL* Take 1 tablet by mouth twice * INSULIN ASPART U-100 100 UNI* Inject 10 Units subcutaneousl* INSULIN GLARGINE (U-100) 100 * Inject 45 Units subcutaneousl* INSULIN GLARGINE (U-100) 100 * Inject 30 Units subcutaneousl* POTASSIUM CHLORIDE ER 10 MEQ * TAKE ONE TABLET BY MOUTH JANETH* APIXABAN 5 MG TABLET Take 5 mg by mouth twice janeth* SIMVASTATIN 40 MG TABLET Take 40 mg by mouth every mor* SPIRONOLACTONE 25 MG TABLET Take 1 tablet by mouth once d* IPRATROPIUM-ALBUTEROL 0.5 MG-* Inhale 3 mL as instructed leanne* DEXTROMETHORPHAN-GUAIFENESIN * Take 5-10 mL by mouth every 6* ALBUTEROL SULFATE CONCENTRATE* Inhale 0.5 mL as instructed o* NITROGLYCERIN 0.4 MG SUBLINGU* Dissolve 1 tablet under the t* GABAPENTIN 300 MG CAPSULE Take 2 capsules by mouth thre* Patient taking differently: Take 600 mg by mouth twice da* ALBUTEROL SULFATE HFA 90 MCG/* Inhale 2 Puffs as instructed * OXYGEN (HOME THERAPY) Inhale 2.5 L/min as instructe* Problem List As Of Date 01/11/2018 Noted Resolved HOCM (hypertrophic obstructive cardiomyopathy) * More... SVT (supraventricular tachycardia) [I47.1] More... Carotid artery disease (HCC) [I77.9] More... CAD (coronary artery disease) [I25.10] Essential hypertension [I10] More... Hyperlipidemia [E78.5] More... Pneumonia [J18.9] 10/27/2017 More... COPD (chronic obstructive pulmonary disease) [J* More... Sleep apnea [G47.30] More... HH (hiatus hernia) [K44.9] GERD (gastroesophageal reflux disease) [K21.9] More... Renal insufficiency [N28.9] More... Arthritis [M19.90] Numbness and tingling of right leg [R20.0, R20.* Depression [F32.9] Diabetes [E11.9] Atrial fibrillation (HCC) [I48.91] INVALID FOR* More... Diabetes mellitus due to underlying condition, *INVALID FOR* More... SUMMARY [V999.95] INVALID FOR* More... Dyspnea [R06.00] INVALID FOR* More... Heart failure, systolic, acute [I50.21] INVALID FOR* More... Obesity [E66.9] INVALID FOR* More... 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*INVALID FOR* Priority: B Elevated troponin [R74.8] INVALID FOR* COPD with acute exacerbation (HCC) [J44.1] INVALID FOR* Priority: D Acute on chronic respiratory failure with hypox*INVALID FOR* Priority: C HCAP (healthcare-associated pneumonia) [J18.9] INVALID FOR* Priority: A Pulmonary hypertension [I27.20] INVALID FOR* Oral thrush [B37.0] INVALID FOR* Hypoxemia [R09.02] INVALID FOR* Encounter Status:Closed by REMI KENNEDY on 01/11/18 LUDA Observed: 01/11/2018 Status: COMPLETED Source: [place] 12:00 AM [facility] REPOSITORY Patient Outreach (INTM[facility]) LUZ BACA ([id number]) 1940 F Date Time Provider Department 01/11/18 [facility]AMESON KAMARA[facility] During your visit today, we recorded the following information about you: Allergies As of Date: 01/11/2018 Noted Allergy Reaction BACTRIM (SULFAMETHOXAZOLE-TRIMETH*05/17/2017 14 - Other: See Comments Comments: My throat swells up. LATEX 05/17/2017 2 - Rash 9 - Itching Comments: Itching and welts. No wheezing or shortness of breath. PENICILLINS 07/14/2004 2 - Rash 9 - Itching Comments: Tolerated ceftriaxone during 11/2017 admission and cefepime during 12/2017 admission TETRACYCLINE 09/29/2010 2 - Rash 8 - GI Upset Comments: Emesis and diarrhea. ATORVASTATIN 05/17/2017 2 - Rash CODEINE 05/17/2017 14 - Other: See Comments Comments: Numbness DILAUDID (HYDROMORPHONE (BULK)) 05/17/2017 1 - Mental Status Change MEPERIDINE 07/14/2004 PENTAZOCINE 07/14/2004 PIOGLITAZONE 05/17/2017 16 - Unknown PROPOXYPHENE 07/14/2004 Date Reviewed: 01/07/2018 Reviewed by: Mandy Adkins - Fully Assessed Visit Diagnosis:Medication management [Z79.899] Order(s):HGB A1C [LWOFC2R] Order #: [id number] FUTURE Prescriptions as of 01/11/2018 Sig: X FUROSEMIDE 40 MG TABLET Take 1.5 tablets by mouth twi* PREDNISONE 10 MG TABLET Take 4 tabs daily x 3 days, t* X ISOSORBIDE MONONITRATE ER 60 * Take 1 tablet by mouth once d* X PANTOPRAZOLE 40 MG TABLET,DEL* Take 1 tablet by mouth twice * X INSULIN ASPART U-100 100 UNI* Inject 10 Units subcutaneousl* X INSULIN GLARGINE (U-100) 100 * Inject 45 Units subcutaneousl* X INSULIN GLARGINE (U-100) 100 * Inject 30 Units subcutaneousl* X POTASSIUM CHLORIDE ER 10 MEQ * TAKE ONE TABLET BY MOUTH JANETH* X APIXABAN 5 MG TABLET Take 5 mg by mouth twice janeth* X SIMVASTATIN 40 MG TABLET Take 40 mg by mouth every mor* X SPIRONOLACTONE 25 MG TABLET Take 1 tablet by mouth once d* X IPRATROPIUM-ALBUTEROL 0.5 MG-* Inhale 3 mL as instructed leanne* DEXTROMETHORPHAN-GUAIFENESIN * Take 5-10 mL by mouth every 6* X ALBUTEROL SULFATE CONCENTRATE* Inhale 0.5 mL as instructed o* Patient not taking: Reported on 01/26/2018 NITROGLYCERIN 0.4 MG SUBLINGU* Dissolve 1 tablet under the t* X GABAPENTIN 300 MG CAPSULE Take 2 capsules by mouth thre* Patient taking differently: Take 600 mg by mouth twice da* X ALBUTEROL SULFATE HFA 90 MCG/* Inhale 2 Puffs as instructed * Patient not taking: Reported on 01/26/2018 OXYGEN (HOME THERAPY) Inhale 2.5 L/min as instructe* Problem List As Of Date 01/11/2018 Noted Resolved HOCM (hypertrophic obstructive cardiomyopathy) * More... SVT (supraventricular tachycardia) [I47.1] More... Carotid artery disease (HCC) [I77.9] CAD (coronary artery disease) [I25.10] More... Essential hypertension [I10] More... Hyperlipidemia [E78.5] Pneumonia [J18.9] 10/27/2017 More... COPD (chronic obstructive pulmonary disease) [J* More... Sleep apnea [G47.30] More... HH (hiatus hernia) [K44.9] GERD (gastroesophageal reflux disease) [K21.9] More... Renal insufficiency [N28.9] More... Arthritis [M19.90] Numbness and tingling of right leg [R20.0, R20.* Depression [F32.9] Diabetes [E11.9] Atrial fibrillation (HCC) [I48.91] INVALID FOR* More... Diabetes mellitus due to underlying condition, *INVALID FOR* More... SUMMARY [V999.95] INVALID FOR* More... Dyspnea [R06.00] INVALID FOR* More... Heart failure, systolic, acute [I50.21] INVALID FOR* More... Obesity [E66.9] INVALID FOR* More... Gout [M10.9] CKD (chronic kidney disease) stage 3, GFR 30-59* Pacemaker [Z95.0] More... 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 Elevated troponin [R74.8] INVALID FOR* COPD with acute exacerbation (HCC) [J44.1] INVALID FOR* Priority: D Acute on chronic respiratory failure with hypox*INVALID FOR* Priority: C More... HCAP (healthcare-associated pneumonia) [J18.9] INVALID FOR* Priority: A Pulmonary hypertension (HCC) [I27.20] INVALID FOR* Oral thrush [B37.0] INVALID FOR* Hypoxemia [R09.02] INVALID FOR* Encounter Status:Closed by LELAND MOREL on 07/29/18 PROGRESS Observed: 01/10/2018 Status: COMPLETED Source: [place] 4:58 PM [facility] REPOSITORY HNO ID: [id number] Author: Remi (Allyson) Brent Service: (none) Author Type: Registered Nurse Type: Progress Notes Filed: 01/10/2018 5:59 PM Note Text: TRANSITION CARE MANAGEMENT (TCM) FOLLOW-UP NOTE Provider Action/FYI Discussed HH nurses report with PCP. Verbal order to increase Lantus to 50 units in AM and 34 units in PM while BS are high and pt is on Prednisone and he will decrease as pt's BS lower and Prednisone is weaned. TC to dgtOctavia, instructed to increase Lantus starting tonight with 34 units and 50 units in AM and PCP will decrease as she weans off prednisone and BS come down, verbalized understanding by teach back. Dgt asked about lab results, informed they are done yet but lab will call PCP results and he can call dgt if it is still very high and if he wants her to do anything tonight, verbalized agreement. Patient identified by name and date of : YES Spoke to [facility] Summary: TC to [facility] [phone], states labs aren't final yet. Asked lab to call PCP's cell with results tonight Remi Kennedy, ALLYSON TC from nurse, Catarina, states she rm CBC w/ Diff and BMP and ordered BMP stat. Took to lab at 3:45 Pt has a lot of LE edema, taking Lasix BID SOB is fine and she hears good air exchange but can still hear fluid in left lung. Pt is on Prednisone since 01/06. FBS today was 432 and BS at nurses visit was 483. Remi Kennedy RN Asked if nurse rm labs on patient today, states yes and it was taken to [facility]. Asked about nurses assessment of pt, states she will have nurse call PCC. Watermelon Inspector plan for next outreach: Will follow up tomorrow Signature Remi Kennedy RN January 10, 2018 PROGRESS Observed: 01/10/2018 Status: COMPLETED Source: [place] 10:42 AM [facility] REPOSITORY HNO ID: [id number] Author: Donnie Segura LPN Service: (none) Author Type: (none) Type: Progress Notes Filed: 01/10/2018 10:44 AM Note Text: Kennedi from [facility] returned call and went over notes below and aware BMP needs drawn and gave Dr fax number to her also. PROGRESS Observed: 01/10/2018 Status: COMPLETED Source: [place] 10:05 AM [facility] REPOSITORY HNO ID: [id number] Author: Sean Han Ma Service: (none) Author Type: (none) Type: Progress Notes Filed: 01/10/2018 10:31 AM Note Text: Patient's daughter/ and patient notified. Requesting patient have labs drawn in home by [facility] CNPTOUTREACH Observed: 01/10/2018 Status: COMPLETED Source: [place] 12:00 AM [facility] REPOSITORY Patient Outreach (FAMPWS) LUZ BACA ([id number]) 1940 F Date Time Provider Department 01/10/18 REMI KENNEDY (RN) FAMPWS During your visit today, we recorded the following information about you: Remi Kennedy RN 01/10/2018 5:59 PM Signed TRANSITION CARE MANAGEMENT (TCM) FOLLOW-UP NOTE Provider Action/FYI Discussed nurses report with PCP. Verbal order to increase Lantus to 50 units in AM and 34 units in PM while BS are high and pt is on Prednisone and he will decrease as pt's BS lower and Prednisone is weaned. TC to dgt, Octavia, instructed to increase Lantus starting tonight with 34 units and 50 units in AM and PCP will decrease as she weans off prednisone and BS come down, verbalized understanding by teach back. Dgt asked about lab results, informed they are done yet but lab will call PCP results and he can call dgt if it is still very high and if he wants her to do anything tonight, verbalized agreement. Patient identified by name and date of : YES Spoke to [facility] Summary: TC to [facility] [phone], states labs aren't final yet. Asked lab to call PCP's cell with results tonbaudilio Kennedy RN TC from nurseCatarina, states she rm CBC w/ Diff and BMP and ordered BMP stat. Took to lab at 3:45 Pt has ANDquot;a lotANDquot; of LE edema, taking Lasix BID SOB is fine and she hears good air exchange but can still hear fluid in left lung. Pt is on Prednisone since 01/06. FBS today was 432 and BS at nurses visit was 483. Remi Kennedy RN Asked if nurse rm labs on patient today, states yes and it was taken to [facility]. Asked about nurses assessment of pt, states she will have nurse call PCC. Watermelon Inspector plan for next outreach: Will follow up tomorrow Signature Remi Kennedy RN January 10, 2018 Allergies As of Date: 01/10/2018 Noted Allergy Reaction BACTRIM (SULFAMETHOXAZOLE-TRIMETH*05/17/2017 14 - Other: See Comments Comments: My throat swells up. LATEX 05/17/2017 2 - Rash 9 - Itching Comments: Itching and welts. No wheezing or shortness of breath. PENICILLINS 07/14/2004 2 - Rash 9 - Itching Comments: Tolerated ceftriaxone during 11/2017 admission and cefepime during 12/2017 admission TETRACYCLINE 09/29/2010 2 - Rash 8 - GI Upset Comments: Emesis and diarrhea. 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] Prescriptions as of 01/10/2018 Sig: FUROSEMIDE 40 MG TABLET Take 1.5 tablets by mouth twi* ISOSORBIDE MONONITRATE ER 60 * Take 1 tablet by mouth once d* PREDNISONE 10 MG TABLET Take 4 tabs daily x 3 days, t* PANTOPRAZOLE 40 MG TABLET,DEL* Take 1 tablet by mouth twice * INSULIN ASPART U-100 100 UNI* Inject 10 Units subcutaneousl* INSULIN GLARGINE (U-100) 100 * Inject 45 Units subcutaneousl* INSULIN GLARGINE (U-100) 100 * Inject 30 Units subcutaneousl* POTASSIUM CHLORIDE ER 10 MEQ * TAKE ONE TABLET BY MOUTH JANETH* APIXABAN 5 MG TABLET Take 5 mg by mouth twice janeth* SIMVASTATIN 40 MG TABLET Take 40 mg by mouth every mor* SPIRONOLACTONE 25 MG TABLET Take 1 tablet by mouth once d* IPRATROPIUM-ALBUTEROL 0.5 MG-* Inhale 3 mL as instructed leanne* DEXTROMETHORPHAN-GUAIFENESIN * Take 5-10 mL by mouth every 6* ALBUTEROL SULFATE CONCENTRATE* Inhale 0.5 mL as instructed o* NITROGLYCERIN 0.4 MG SUBLINGU* Dissolve 1 tablet under the t* GABAPENTIN 300 MG CAPSULE Take 2 capsules by mouth thre* Patient taking differently: Take 600 mg by mouth twice da* ALBUTEROL SULFATE HFA 90 MCG/* Inhale 2 Puffs as instructed * OXYGEN (HOME THERAPY) Inhale 2.5 L/min as instructe* Problem List As Of Date 01/10/2018 Noted Resolved HOCM (hypertrophic obstructive cardiomyopathy) * More... SVT (supraventricular tachycardia) [I47.1] More... Carotid artery disease (HCC) [I77.9] More... CAD (coronary artery disease) [I25.10] Essential hypertension [I10] More... Hyperlipidemia [E78.5] More... Pneumonia [J18.9] 10/27/2017 More... COPD (chronic obstructive pulmonary disease) [J* More... Sleep apnea [G47.30] More... HH (hiatus hernia) [K44.9] GERD (gastroesophageal reflux disease) [K21.9] More... Renal insufficiency [N28.9] More... Arthritis [M19.90] Numbness and tingling of right leg [R20.0, R20.* Depression [F32.9] Diabetes [E11.9] Atrial fibrillation (HCC) [I48.91] INVALID FOR* More... Diabetes mellitus due to underlying condition, *INVALID FOR* More... SUMMARY [V999.95] INVALID FOR* More... Dyspnea [R06.00] INVALID FOR* More... Heart failure, systolic, acute [I50.21] INVALID FOR* More... Obesity [E66.9] INVALID FOR* More... 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*INVALID FOR* Priority: B Elevated troponin [R74.8] INVALID FOR* COPD with acute exacerbation (HCC) [J44.1] INVALID FOR* Priority: D Acute on chronic respiratory failure with hypox*INVALID FOR* Priority: C HCAP (healthcare-associated pneumonia) [J18.9] INVALID FOR* Priority: A Pulmonary hypertension [I27.20] INVALID FOR* Oral thrush [B37.0] INVALID FOR* Hypoxemia [R09.02] INVALID FOR* Encounter Status:Closed by REMI KENNEDY on 01/10/18 PROGRESS Observed: 01/08/2018 Status: COMPLETED Source: [place] 9:14 AM [facility] REPOSITORY O ID: [id number] Author: Isabela Martinez Service: (none) Author Type: Physician Type: Progress Notes Filed: 01/08/2018 9:17 AM Note Text: Call with abnormal potassium of 6.3. Discussed with patient's daughter; she did not take potassium today, and had lasix increased. Recommended they continue to hold potassium, recheck labs on Wednesday. Isabela Martinez MD HOSP Observed: 01/08/2018 Status: COMPLETED Source: [place] 12:00 AM [facility] REPOSITORY Patient Update (FAMPWS) LUZ BACA ([id number]) 1940 F Date Time Provider Department 01/08/18 [facility]INEZ [facility] During your visit today, we recorded the following information about you: Isabela Martinez MD 01/08/2018 9:17 AM Signed Call with abnormal potassium of 6.3. Discussed with patient's daughter; she did not take potassium today, and had lasix increased. Recommended they continue to hold potassium, recheck labs on Wednesday. MD Sean Gasca Ma 01/10/2018 10:31 AM Signed Patient's daughter/ and patient notified. Requesting patient have labs drawn in home by [facility] Donnie Segura LPN 01/10/2018 10:44 AM Signed Kennedi from [facility] returned call and went over notes below and aware BMP needs drawn and gave Dr fax number to her also. Allergies As of Date: 01/08/2018 Noted Allergy Reaction BACTRIM (SULFAMETHOXAZOLE-TRIMETH*05/17/2017 14 - Other: See Comments Comments: My throat swells up. LATEX 05/17/2017 2 - Rash 9 - Itching Comments: Itching and welts. No wheezing or shortness of breath. PENICILLINS 07/14/2004 2 - Rash 9 - Itching Comments: Tolerated ceftriaxone during 11/2017 admission and cefepime during 12/2017 admission TETRACYCLINE 09/29/2010 2 - Rash 8 - GI Upset Comments: Emesis and diarrhea. ATORVASTATIN 05/17/2017 2 - Rash CODEINE 05/17/2017 14 - Other: See Comments Comments: Numbness DILAUDID (HYDROMORPHONE (BULK)) 05/17/2017 1 - Mental Status Change MEPERIDINE 07/14/2004 PENTAZOCINE 07/14/2004 PIOGLITAZONE 05/17/2017 16 - Unknown PROPOXYPHENE 07/14/2004 Date Reviewed: 01/07/2018 Reviewed by: Mandy Adkins - Fully Assessed Primary Visit Diagnosis:Acute on chronic combined systolic and diastolic CHF (congestive heart failure) (HCC) [I50.43] Other Visit Diagnosis:Hyperkalemia [E87.5] Order(s):BASIC METABOLIC PNL [SQBMP] Order #: [id number] FUTURE Prescriptions as of 01/08/2018 Sig: FUROSEMIDE 40 MG TABLET Take 1.5 tablets by mouth twi* ISOSORBIDE MONONITRATE ER 60 * Take 1 tablet by mouth once d* PREDNISONE 10 MG TABLET Take 4 tabs daily x 3 days, t* PANTOPRAZOLE 40 MG TABLET,DEL* Take 1 tablet by mouth twice * INSULIN ASPART U-100 100 UNI* Inject 10 Units subcutaneousl* INSULIN GLARGINE (U-100) 100 * Inject 45 Units subcutaneousl* INSULIN GLARGINE (U-100) 100 * Inject 30 Units subcutaneousl* POTASSIUM CHLORIDE ER 10 MEQ * TAKE ONE TABLET BY MOUTH JANETH* APIXABAN 5 MG TABLET Take 5 mg by mouth twice janeth* SIMVASTATIN 40 MG TABLET Take 40 mg by mouth every mor* SPIRONOLACTONE 25 MG TABLET Take 1 tablet by mouth once d* IPRATROPIUM-ALBUTEROL 0.5 MG-* Inhale 3 mL as instructed leanne* DEXTROMETHORPHAN-GUAIFENESIN * Take 5-10 mL by mouth every 6* ALBUTEROL SULFATE CONCENTRATE* Inhale 0.5 mL as instructed o* NITROGLYCERIN 0.4 MG SUBLINGU* Dissolve 1 tablet under the t* GABAPENTIN 300 MG CAPSULE Take 2 capsules by mouth thre* Patient taking differently: Take 600 mg by mouth twice da* ALBUTEROL SULFATE HFA 90 MCG/* Inhale 2 Puffs as instructed * OXYGEN (HOME THERAPY) Inhale 2.5 L/min as instructe* Problem List As Of Date 01/08/2018 Noted Resolved HOCM (hypertrophic obstructive cardiomyopathy) * More... SVT (supraventricular tachycardia) [I47.1] More... Carotid artery disease (HCC) [I77.9] More... CAD (coronary artery disease) [I25.10] Essential hypertension [I10] More... Hyperlipidemia [E78.5] More... Pneumonia [J18.9] 10/27/2017 More... COPD (chronic obstructive pulmonary disease) [J* More... Sleep apnea [G47.30] More... HH (hiatus hernia) [K44.9] GERD (gastroesophageal reflux disease) [K21.9] More... Renal insufficiency [N28.9] More... Arthritis [M19.90] Numbness and tingling of right leg [R20.0, R20.* Depression [F32.9] Diabetes [E11.9] Atrial fibrillation (HCC) [I48.91] INVALID FOR* More... Diabetes mellitus due to underlying condition, *INVALID FOR* More... SUMMARY [V999.95] INVALID FOR* More... Dyspnea [R06.00] INVALID FOR* More... Heart failure, systolic, acute [I50.21] INVALID FOR* More... Obesity [E66.9] INVALID FOR* More... 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*INVALID FOR* Priority: B Elevated troponin [R74.8] INVALID FOR* COPD with acute exacerbation (HCC) [J44.1] INVALID FOR* Priority: D Acute on chronic respiratory failure with hypox*INVALID FOR* Priority: C HCAP (healthcare-associated pneumonia) [J18.9] INVALID FOR* Priority: A Pulmonary hypertension [I27.20] INVALID FOR* Oral thrush [B37.0] INVALID FOR* Hypoxemia [R09.02] INVALID FOR* Follow-up and Disposition History Recorded Encounter Status:Closed by ISABELA MARTINEZ MD on 01/08/18 POTASSIUM Collected: 01/07/2018 Status: F Source: [place] 11:50 AM [facility] REPOS[facility]ORY TYPE CODE TESTS RESULT OUT OF REFERENCE UNITS RANGE LAB K 3.7-5.1 mmol/L High Alert Potassium 6.3 Result Comment: Called to and read back by: Dr. Ángel Martinez Doctor behavioral health consultant 01/07/18 22:20 Salima Performed By: #### K1 #### [facility] [address] [place], [place] [address] CNOV Observed: 01/07/2018 Status: COMPLETED Source: [place] 11:00 AM [facility] REPOSITORY Office Visit (PULMWS) LUZ BACA ([id number]) 1940 F Date Time Provider Department 01/07/18 11:00 AM MANDY ADKINS PULMWS During your visit today, we recorded the following information about you: Pulse Respiration Blood pressure 79/minute 20/minute 102/60 Mandy Adkins PA-C 01/07/2018 12:03 PM Signed [facility], 01/07/18: HPI: The patient is here for follow up of dyspnea. Since the last Pulmonary Clinic visit, the patient was started on Prednisone per Dr. Kamara, PCP. Patient also evaluated by Dr. Cardona, cardiology. Lasix was increased to 60 mg in the morning and 40 mg in the evening and aldactone 25 mg daily. Patient compliant with prescribed Rx. Persistent cough. White to benavides sputum. No hemoptysis. No fevers or chills. Wheezing. Exertional dyspnea despite increase in diuretics. Supplemental oxygen 2.5 L continuously via NC. DME: [employer]. 3-4 times daily nebulizer treatments, with some relief. PMH changes: Reviewed with patient today. No changes. FAMH changes: Reviewed with patient today. No changes. SOCH changes: No changes. Immunization History Administered Date(s) Administered Influenza Seasonal - High Dose - Age 65+ 10/27/2017 ROS: General: Generally feels short of breath. Appetite fair. Weight gain. Eyes, Ears, nose, throat: No post nasal drip, rhinorrhea, purulent nasal discharge, epistaxis, hoarseness. Vision stable. Cardiac: CP relieved by nitro. Lower extremity edema. GI: Heartburn and dysphagia. No diarrhea. Uro/CARE ASSOCIATE: No dysuria, hesitancy, nocturia. Musculoskeletal: No pain. Neuro: No headache, focal weakness, tremor. Skin: No rash. Otherwise negative. Allergies were reviewed and updated, and medications were reconciled with the patient. PHYSICAL EXAMINATION: BP 102/60 Pulse 79 Resp 20 SpO2 96% O2: 3 L pulse dosed. Gen: No acute distress. Cooperative with examination. ENT: Sclerae clear. Nares clear. Oral hygeine and dentition poor. Resp: No stridor, accessory respiratory muscle use, supra- sternal or intercostal retractions. Bilateral wheezes with coarse rhonchi. Decreased air movement. CV: Regular rythm. Heart tones normal. Radial pulses normal. Abd: Non distended. MSK: No kyphoscoliosis, joint deformities of the extremities. Ext: Warm and well perfused. No clubbing, cyanosis. Bilateral lower extremity 1+ edema. Skin: Color normal. Texture normal. No rash, eczema, urticaria, ecchymoses. Neuro: Mental status normal. Affect normal. Muscle tone normal, symmetrical . No tremor. DATA REVIEW: CXR, 01/06/18 IMPRESSION: Left-sided small pleural effusion with associated lower lung atelectasis/infiltrates. Obscuring of the pulmonary markings, suggestive of pulmonary venous congestion. Cardiomegaly. RESULT: Lines, tubes, and devices: ?No change in position of left chest single chamber AICD. Lungs and pleura: ?Left-sided small pleural effusion is present, with associated left lower lung atelectasis/infiltrates. ?Also noted obscuring of the pulmonary markings. ?No right-sided pleural effusion. ?No pneumothorax. Cardiomediastinal silhouette: ?There is cardiomegaly. ?There appears to be a coronary stent. Other: ?Status post median sternotomy. Labs, 01/06/18 NT Pro BNP 1577 (H) ANDlt;450 pg/mL Final CCM WBC 6.59 3.70 - 11.00 k/uL Final CCM Comment: Less than optimal volume of specimen received and tested. RBC 4.19 3.90 - 5.20 m/uL Final CCM Hemoglobin 12.7 11.5 - 15.5 g/dL Final CCM Hematocrit 39.6 36.0 - 46.0 % Final CCM MCV 94.5 80.0 - 100.0 fL Final CCM MCH 30.3 26.0 - 34.0 pG Final CCM MCHC 32.1 30.5 - 36.0 g/dL Final CCM RDW-CV 15.4 (H) 11.5 - 15.0 % Final CCM Platelet Count 149 (L) 150 - 400 k/uL Final CCM MPV 10.0 9.0 - 12.7 fL Final CCM Neut% 71.0 % Final CCM Abs Neut (ANC) 4.68 1.45 - 7.50 k/uL Final CCM Lymph% 17.3 % Final CCM Abs Lymph 1.14 1.00 - 4.00 k/uL Final CCM Stoddard% 7.7 % Final CCM Abs Stoddard 0.51 ANDlt;0.87 k/uL Final CCM Eosin% 3.2 % Final CCM Abs Eosin 0.21 ANDlt;0.46 k/uL Final CCM Baso% 0.8 % Final CCM Abs Baso 0.05 ANDlt;0.11 k/uL Final CCM Nucleated Reds 0.2 (H) 0 /100 WBC Final CCM Absolute nRBC 0.01 (H) ANDlt;0.01 k/uL Final CCM Diff Type Auto Diff Final CCM Echo, 12/21/17 PATIENT: Name: MRS. LUZ RUSH : 1940 Age: 77 years Gender: F History of hypertension, dyslipidemia, coronary artery disease, arrhythmia, cardiomyopathy and COPD. Previous cardiovascular interventions: Myectomy (2003) Other pacemaker implant Primary rhythm: AV Paced. Height: 172.72 cm BSA: 2.19 m? Weight: 99.79 kg ?BMI: 33.5 kg/m? ? Heart rate 63 bpm Technically difficult exam due to body habitus and COPD. Color Doppler was utilized to interrogate the cardiac valves assessed and spectral ?Doppler was utilized to determine the flow velocities and pressure gradients reported in this exam. ? MEASUREMENTS: ?Value ?Indexed ? ?Normal Max aortic dimension ? ? 3.4 cm ? 1.55 cm/m? Left atrium diameter ? ? 5.4 cm (M-Mode) Left atrial volume ? ? ? 99 ml (4ch A-L) ? ?45 ml/m? ? Fabián ANDlt;= 34 LV ID (diastole) ? 5.3 cm (2D) LV ID (systole) ?3.5 cm (2D) IVS, leaflet tips ?1.0 cm (2D) Posterior wall thickness 1.2 cm (2D) Left ventricular mass ? ?236 g (2D) ? 108 g/m? Ejection Fraction ?50 % (visual est.) ?EF ANDgt; 54 ? FINDINGS: ? LEFT VENTRICLE The left ventricle is normal in size. There is mild left ventricular hypertrophy. Left ventricular systolic function is mildly decreased. Grade III left ventricular diastolic dysfunction. Wall Motion: The basal anteroseptal segment is severely hypokinetic. All remaining scored segments are normal. ? RIGHT VENTRICLE The right ventricle is dilated. Right ventricular systolic function is mildly decreased. RV systolic tissue Doppler velocity is 8.0 cm/s. Estimated right ventricular systolic pressure is 78 mmHg consistent with moderately severe pulmonary hypertension. Estimated right atrial pressure is 10 mmHg. ? LEFT ATRIUM The left atrial cavity is moderately dilated. ? RIGHT ATRIUM The right atrial cavity is dilated. Inferior Vena Cava: The inferior vena cava appears normal measuring 2.5 cm. The vessel decreases less than 50 percent with inspiration. MITRAL VALVE The mitral valve leaflets are structurally normal. [place] mitral valve. There is trivial (trivial - 1+) mitral valve regurgitation. ? TRICUSPID VALVE [place] tricuspid valve. There is moderate (2+ - 3+) tricuspid valve regurgitation. ? AORTIC VALVE The aortic valve cusps are structurally normal. There is no aortic valve stenosis. ?There is no aortic valve regurgitation. Tricuspid aortic valve. ? PULMONIC VALVE The pulmonic valve was not seen or not interrogated. There is no pulmonic valve regurgitation. ? AORTA The visualized aorta is normal in size. Measurements - Sinus 3.1 cm. Mid ascending aorta 3.4 cm. INTERVENTRICULAR SEPTUM There is abnormal motion of the interventricular septum secondary to prior cardiac ?surgery. ? PERICARDIUM There is no pericardial effusion. ? CONCLUSIONS: - Technically difficult exam due to body habitus and COPD. - Exam indication: s/p myectomy - The left ventricle is normal in size. There is mild left ventricular hypertrophy. Left ventricular systolic function is mildly decreased. EF = 50 ? 5% (visual est.) Grade III left ventricular diastolic dysfunction. - The right ventricle is dilated. Right ventricular systolic function is mildly decreased. - The left atrial cavity is moderately dilated. - The right atrial cavity is dilated. - There is moderate (2+ - 3+) tricuspid valve regurgitation. - Estimated right ventricular systolic pressure is 78 mmHg consistent with moderately severe pulmonary hypertension. Estimated right atrial pressure is 10 mmHg. - Definity contrast could not be administered d/t unavailability of staff. - s/p myectomy: LVOT gradient at rest 6 mmHg, trivial-1+ MR. Patient unable to valsalva. - Exam was compared with the prior echocardiographic exam performed on 09/23/2010. LV function is normal on this study, and the patient appears to be in NSR (was in AF with RVR on prior study) ? ESSION/RECOMMEND: 1. Dyspnea which appears to be due to concomitant known heart disease. - NT pro BNP 1577, improved with addition of aldactone per Dr. Cardona. - Discussed with Dr. Kamara's office, will increase Lasix to 60 mg twice daily. Continue with Aldactone 25 mg daily. Stop taking Potassium Chloride at this time. - Repeat potassium level today. Dr. Kamara office to monitor potassium. - Current Echocardiogram is consistent with moderate to severe pulmonary hypertension. Will refer to pulmonary hypertension clinic on [facility]. - Continue nebulizer treatments every 4-6 hours as needed for wheezing, cough, and/or shortness of breath or albuterol inhaler 2 inhalations up to 4 times daily. ? 2. Oral thrush. - Nystatin swish and swallow as directed. . ? 3. Hypoxemia. - Continue with continuous supplemental oxygen at this time. ? 4. Sleep apnea. - Previously unable to tolerate CPAP mask. - Untreated MARLA may lead to or worsen pulmonary arterial hypertension, CAD and cardiac arrhythmias, heart failure, and stroke. - Recommend referral to sleep medicine once patient is feeling better and able to tolerate PSG. 5. Dysphagia. - Barium swallow study normal on 12/28/17. - Gastric emptying study ordered. ?? I addressed the questions of the patient and daughter, and they expressed understanding and acceptance of my answers. Mandy Adkins PA-C [facility] [place] [id number] [place] [id number] Mandy Adkins PA-C 01/07/2018 11:21 AM Signed 1. Dyspnea which appears to be due to concomitant known heart disease. - NT pro BNP 1577, improved with addition of aldactone per Dr. Cardona. - Discussed with Dr. Kamara's office, will increase Lasix to 60 mg twice daily. Continue with Aldactone 25 mg daily. Stop taking Potassium Chloride at this time. - Repeat potassium level today. Dr. Kamara office to monitor potassium. - Current Echocardiogram is consistent with moderate to severe pulmonary hypertension. Will refer to pulmonary hypertension clinic [facility]. - Continue nebulizer treatments every 4-6 hours as needed for wheezing, cough, and/or shortness of breath or albuterol inhaler 2 inhalations up to 4 times daily. ? 2. Oral thrush. - Nystatin swish and swallow as directed. . ? 3. Hypoxemia. - Continue with continuous supplemental oxygen at this time. ? 4. Sleep apnea. - Previously unable to tolerate CPAP mask. - Untreated MARLA may lead to or worsen pulmonary arterial hypertension, CAD and cardiac arrhythmias, heart failure, and stroke. - Recommend referral to sleep medicine once patient is feeling better and able to tolerate PSG. 5. Dysphagia. - Barium swallow study normal on 12/28/17. - Gastric emptying study ordered. ?? Referring Provider: MANDY ADKINS [[id number]] Allergies As of Date: 01/07/2018 Noted Allergy Reaction BACTRIM (SULFAMETHOXAZOLE-TRIMETH*05/17/2017 14 - Other: See Comments Comments: My throat swells up. LATEX 05/17/2017 2 - Rash 9 - Itching Comments: Itching and welts. No wheezing or shortness of breath. PENICILLINS 07/14/2004 2 - Rash 9 - Itching Comments: Tolerated ceftriaxone during 11/2017 admission and cefepime during 12/2017 admission TETRACYCLINE 09/29/2010 2 - Rash 8 - GI Upset Comments: Emesis and diarrhea. ATORVASTATIN 05/17/2017 2 - Rash CODEINE 05/17/2017 14 - Other: See Comments Comments: Numbness DILAUDID (HYDROMORPHONE (BULK)) 05/17/2017 1 - Mental Status Change MEPERIDINE 07/14/2004 PENTAZOCINE 07/14/2004 PIOGLITAZONE 05/17/2017 16 - Unknown PROPOXYPHENE 07/14/2004 Date Reviewed: 01/07/2018 Reviewed by: Mandy Adkins - Fully Assessed Reason for Visit: Established Patient [175] Cmt: 6 week follow up SOB Primary Visit Diagnosis:Pulmonary hypertension [I27.20] Other Visit Diagnoses:Acute on chronic combined systolic and diastolic CHF (congestive heart failure) (HCC) [I50.43] Dyspnea and respiratory abnormalities [R06.00, R06.89] Oral thrush [B37.0] Hypoxemia [R09.02] Obstructive sleep apnea [G47.33] Prescriptions as of 01/07/2018 Sig: FUROSEMIDE 40 MG TABLET Take 1 tablet by mouth twice * ISOSORBIDE MONONITRATE ER 60 * Take 1 tablet by mouth once d* PREDNISONE 10 MG TABLET Take 4 tabs daily x 3 days, t* PANTOPRAZOLE 40 MG TABLET,DEL* Take 1 tablet by mouth twice * NYSTATIN 100,000 UNIT/ML ORAL* Take 2 mL by mouth four times* INSULIN ASPART U-100 100 UNI* Inject 10 Units subcutaneousl* INSULIN GLARGINE (U-100) 100 * Inject 45 Units subcutaneousl* INSULIN GLARGINE (U-100) 100 * Inject 30 Units subcutaneousl* POTASSIUM CHLORIDE ER 10 MEQ * TAKE ONE TABLET BY MOUTH JANETH* APIXABAN 5 MG TABLET Take 5 mg by mouth twice janeth* SIMVASTATIN 40 MG TABLET Take 40 mg by mouth every mor* SPIRONOLACTONE 25 MG TABLET Take 1 tablet by mouth once d* IPRATROPIUM-ALBUTEROL 0.5 MG-* Inhale 3 mL as instructed leanne* DEXTROMETHORPHAN-GUAIFENESIN * Take 5-10 mL by mouth every 6* NITROGLYCERIN 0.4 MG SUBLINGU* Dissolve 1 tablet under the t* GABAPENTIN 300 MG CAPSULE Take 2 capsules by mouth thre* Patient taking differently: Take 600 mg by mouth twice da* ALBUTEROL SULFATE HFA 90 MCG/* Inhale 2 Puffs as instructed * ALBUTEROL SULFATE CONCENTRATE* Inhale 0.5 mL as instructed o* OXYGEN (HOME THERAPY) Inhale 2.5 L/min as instructe* Problem List As Of Date 01/07/2018 Noted Resolved HOCM (hypertrophic obstructive cardiomyopathy) * More... SVT (supraventricular tachycardia) [I47.1] More... Carotid artery disease (HCC) [I77.9] More... CAD (coronary artery disease) [I25.10] Essential hypertension [I10] More... Hyperlipidemia [E78.5] More... Pneumonia [J18.9] 10/27/2017 More... COPD (chronic obstructive pulmonary disease) [J* More... Sleep apnea [G47.30] More... HH (hiatus hernia) [K44.9] GERD (gastroesophageal reflux disease) [K21.9] More... Renal insufficiency [N28.9] More... Arthritis [M19.90] Numbness and tingling of right leg [R20.0, R20.* Depression [F32.9] Diabetes [E11.9] Atrial fibrillation (HCC) [I48.91] INVALID FOR* More... Diabetes mellitus due to underlying condition, *INVALID FOR* More... SUMMARY [V999.95] INVALID FOR* More... Dyspnea [R06.00] INVALID FOR* More... Heart failure, systolic, acute [I50.21] INVALID FOR* More... Obesity [E66.9] INVALID FOR* More... 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*INVALID FOR* Priority: B Elevated troponin [R74.8] INVALID FOR* COPD with acute exacerbation (HCC) [J44.1] INVALID FOR* Priority: D Acute on chronic respiratory failure with hypox*INVALID FOR* Priority: C HCAP (healthcare-associated pneumonia) [J18.9] INVALID FOR* Priority: A Pulmonary hypertension [I27.20] INVALID FOR* Oral thrush [B37.0] INVALID FOR* Hypoxemia [R09.02] INVALID FOR* Other instructions from your clinician: 1. Dyspnea which appears to be due to concomitant known heart disease. - NT pro BNP 1577, improved with addition of aldactone per Dr. Cardona. - Discussed with Dr. Kamara's office, will increase Lasix to 60 mg twice daily. Continue with Aldactone 25 mg daily. Stop taking Potassium Chloride at this time. - Repeat potassium level today. Dr. Kamara office to monitor potassium. - Current Echocardiogram is consistent with moderate to severe pulmonary hypertension. Will refer to pulmonary hypertension clinic on [facility]. - Continue nebulizer treatments every 4-6 hours as needed for wheezing, cough, and/or shortness of breath or albuterol inhaler 2 inhalations up to 4 times daily. ? 2. Oral thrush. - Nystatin swish and swallow as directed. . ? 3. Hypoxemia. - Continue with continuous supplemental oxygen at this time. ? 4. Sleep apnea. - Previously unable to tolerate CPAP mask. - Untreated MARLA may lead to or worsen pulmonary arterial hypertension, CAD and cardiac arrhythmias, heart failure, and stroke. - Recommend referral to sleep medicine once patient is feeling better and able to tolerate PSG. 5. Dysphagia. - Barium swallow study normal on 12/28/17. - Gastric emptying study ordered. ?? Disposition: Return in about 4 weeks (around 02/04/2018). Follow-up and Disposition History Recorded Encounter Status:Closed by MANDY ADKINS on 01/07/18 PROGRESS Observed: 01/07/2018 Status: COMPLETED Source: [place] 10:43 AM [facility] REPOSITORY HNO ID: [id number] Author: Mandy Adkins Service: (none) Author Type: Physician Transport Driver Type: Progress Notes Filed: 01/07/2018 12:03 PM Note Text: [facility], 01/07/18: HPI: The patient is here for follow up of dyspnea. Since the last Pulmonary Clinic visit, the patient was started on Prednisone per Dr. Kamara, PCP. Patient also evaluated by Dr. Cardona, cardiology. Lasix was increased to 60 mg in the morning and 40 mg in the evening and aldactone 25 mg daily. Patient compliant with prescribed Rx. Persistent cough. White to benavides sputum. No hemoptysis. No fevers or chills. Wheezing. Exertional dyspnea despite increase in diuretics. Supplemental oxygen 2.5 L continuously via NC. DME: [employer]. 3-4 times daily nebulizer treatments, with some relief. PMH changes: Reviewed with patient today. No changes. FAMH changes: Reviewed with patient today. No changes. SOCH changes: No changes. Immunization History Administered Date(s) Administered Influenza Seasonal - High Dose - Age 65+ 10/27/2017 ROS: General: Generally feels short of breath. Appetite fair. Weight gain. Eyes, Ears, nose, throat: No post nasal drip, rhinorrhea, purulent nasal discharge, epistaxis, hoarseness. Vision stable. Cardiac: CP relieved by nitro. Lower extremity edema. GI: Heartburn and dysphagia. No diarrhea. Uro/CARE ASSOCIATE: No dysuria, hesitancy, nocturia. Musculoskeletal: No pain. Neuro: No headache, focal weakness, tremor. Skin: No rash. Otherwise negative. Allergies were reviewed and updated, and medications were reconciled with the patient. PHYSICAL EXAMINATION: BP 102/60 Pulse 79 Resp 20 SpO2 96% O2: 3 L pulse dosed. Gen: No acute distress. Cooperative with examination. ENT: Sclerae clear. Nares clear. Oral hygeine and dentition poor. Resp: No stridor, accessory respiratory muscle use, supra- sternal or intercostal retractions. Bilateral wheezes with coarse rhonchi. Decreased air movement. CV: Regular rythm. Heart tones normal. Radial pulses normal. Abd: Non distended. MSK: No kyphoscoliosis, joint deformities of the extremities. Ext: Warm and well perfused. No clubbing, cyanosis. Bilateral lower extremity 1+ edema. Skin: Color normal. Texture normal. No rash, eczema, urticaria, ecchymoses. Neuro: Mental status normal. Affect normal. Muscle tone normal, symmetrical . No tremor. DATA REVIEW: CXR, 01/06/18 IMPRESSION: Left-sided small pleural effusion with associated lower lung atelectasis/infiltrates. Obscuring of the pulmonary markings, suggestive of pulmonary venous congestion. Cardiomegaly. RESULT: Lines, tubes, and devices: ?No change in position of left chest single chamber AICD. Lungs and pleura: ?Left-sided small pleural effusion is present, with associated left lower lung atelectasis/infiltrates. ?Also noted obscuring of the pulmonary markings. ?No right-sided pleural effusion. ?No pneumothorax. Cardiomediastinal silhouette: ?There is cardiomegaly. ?There appears to be a coronary stent. Other: ?Status post median sternotomy. Labs, 01/06/18 NT Pro BNP 1577 (H) <450 pg/mL Final CCM WBC 6.59 3.70 - 11.00 k/uL Final CCM Comment: Less than optimal volume of specimen received and tested. RBC 4.19 3.90 - 5.20 m/uL Final CCM Hemoglobin 12.7 11.5 - 15.5 g/dL Final CCM Hematocrit 39.6 36.0 - 46.0 % Final CCM MCV 94.5 80.0 - 100.0 fL Final CCM MCH 30.3 26.0 - 34.0 pG Final CCM MCHC 32.1 30.5 - 36.0 g/dL Final CCM RDW-CV 15.4 (H) 11.5 - 15.0 % Final CCM Platelet Count 149 (L) 150 - 400 k/uL Final CCM MPV 10.0 9.0 - 12.7 fL Final CCM Neut% 71.0 % Final CCM Abs Neut (ANC) 4.68 1.45 - 7.50 k/uL Final CCM Lymph% 17.3 % Final CCM Abs Lymph 1.14 1.00 - 4.00 k/uL Final CCM Stoddard% 7.7 % Final CCM Abs [place] 0.51 <0.87 k/uL Final CCM Eosin% 3.2 % Final CCM Abs Eosin 0.21 <0.46 k/uL Final CCM Baso% 0.8 % Final CCM Abs Baso 0.05 <0.11 k/uL Final CCM Nucleated Reds 0.2 (H) 0 /100 WBC Final CCM Absolute nRBC 0.01 (H) <0.01 k/uL Final CCM Diff Type Auto Diff Final CCM Echo, 12/21/17 PATIENT: Name: MRS. LUZ RUSH : 1940 Age: 77 years Gender: F History of hypertension, dyslipidemia, coronary artery disease, arrhythmia, cardiomyopathy and COPD. Previous cardiovascular interventions: Myectomy (2003) Other pacemaker implant Primary rhythm: AV Paced. Height: 172.72 cm BSA: 2.19 m? Weight: 99.79 kg ?BMI: 33.5 kg/m? ? Heart rate 63 bpm Technically difficult exam due to body habitus and COPD. Color Doppler was utilized to interrogate the cardiac valves assessed and spectral ?Doppler was utilized to determine the flow velocities and pressure gradients reported in this exam. ? MEASUREMENTS: ?Value ?Indexed ? ?Normal Max aortic dimension ? ? 3.4 cm ? 1.55 cm/m? Left atrium diameter ? ? 5.4 cm (M-Mode) Left atrial volume ? ? ? 99 ml (4ch A-L) ? ?45 ml/m? ? Fabián <= 34 LV ID (diastole) ? 5.3 cm (2D) LV ID (systole) ?3.5 cm (2D) IVS, leaflet tips ?1.0 cm (2D) Posterior wall thickness 1.2 cm (2D) Left ventricular mass ? ?236 g (2D) ? 108 g/m? Ejection Fraction ?50 % (visual est.) ?EF > 54 ? FINDINGS: ? LEFT VENTRICLE The left ventricle is normal in size. There is mild left ventricular hypertrophy. Left ventricular systolic function is mildly decreased. Grade III left ventricular diastolic dysfunction. Wall Motion: The basal anteroseptal segment is severely hypokinetic. All remaining scored segments are normal. ? RIGHT VENTRICLE The right ventricle is dilated. Right ventricular systolic function is mildly decreased. RV systolic tissue Doppler velocity is 8.0 cm/s. Estimated right ventricular systolic pressure is 78 mmHg consistent with moderately severe pulmonary hypertension. Estimated right atrial pressure is 10 mmHg. ? LEFT ATRIUM The left atrial cavity is moderately dilated. ? RIGHT ATRIUM The right atrial cavity is dilated. Inferior Vena Cava: The inferior vena cava appears normal measuring 2.5 cm. The vessel decreases less than 50 percent with inspiration. MITRAL VALVE The mitral valve leaflets are structurally normal. [place] mitral valve. There is trivial (trivial - 1+) mitral valve regurgitation. ? TRICUSPID VALVE [place] tricuspid valve. There is moderate (2+ - 3+) tricuspid valve regurgitation. ? AORTIC VALVE The aortic valve cusps are structurally normal. There is no aortic valve stenosis. ?There is no aortic valve regurgitation. Tricuspid aortic valve. ? PULMONIC VALVE The pulmonic valve was not seen or not interrogated. There is no pulmonic valve regurgitation. ? AORTA The visualized aorta is normal in size. Measurements - Sinus 3.1 cm. Mid ascending aorta 3.4 cm. INTERVENTRICULAR SEPTUM There is abnormal motion of the interventricular septum secondary to prior cardiac ?surgery. ? PERICARDIUM There is no pericardial effusion. ? CONCLUSIONS: - Technically difficult exam due to body habitus and COPD. - Exam indication: s/p myectomy - The left ventricle is normal in size. There is mild left ventricular hypertrophy. Left ventricular systolic function is mildly decreased. EF = 50 ? 5% (visual est.) Grade III left ventricular diastolic dysfunction. - The right ventricle is dilated. Right ventricular systolic function is mildly decreased. - The left atrial cavity is moderately dilated. - The right atrial cavity is dilated. - There is moderate (2+ - 3+) tricuspid valve regurgitation. - Estimated right ventricular systolic pressure is 78 mmHg consistent with moderately severe pulmonary hypertension. Estimated right atrial pressure is 10 mmHg. - Definity contrast could not be administered d/t unavailability of staff. - s/p myectomy: LVOT gradient at rest 6 mmHg, trivial-1+ MR. Patient unable to valsalva. - Exam was compared with the prior echocardiographic exam performed on 09/23/2010. LV function is normal on this study, and the patient appears to be in NSR (was in AF with RVR on prior study) ? ESSION/RECOMMEND: 1. Dyspnea which appears to be due to concomitant known heart disease. - NT pro BNP 1577, improved with addition of aldactone per Dr. Cardona. - Discussed with Dr. Kamara's office, will increase Lasix to 60 mg twice daily. Continue with Aldactone 25 mg daily. Stop taking Potassium Chloride at this time. - Repeat potassium level today. Dr. Kamara office to monitor potassium. - Current Echocardiogram is consistent with moderate to severe pulmonary hypertension. Will refer to pulmonary hypertension clinic on [facility]. - Continue nebulizer treatments every 4-6 hours as needed for wheezing, cough, and/or shortness of breath or albuterol inhaler 2 inhalations up to 4 times daily. ? 2. Oral thrush. - Nystatin swish and swallow as directed. . ? 3. Hypoxemia. - Continue with continuous supplemental oxygen at this time. ? 4. Sleep apnea. - Previously unable to tolerate CPAP mask. - Untreated MARLA may lead to or worsen pulmonary arterial hypertension, CAD and cardiac arrhythmias, heart failure, and stroke. - Recommend referral to sleep medicine once patient is feeling better and able to tolerate PSG. 5. Dysphagia. - Barium swallow study normal on 12/28/17. - Gastric emptying study ordered. ?? I addressed the questions of the patient and daughter, and they expressed understanding and acceptance of my answers. Mandy Adkins PA-C [facility] [address] [place] [phone] PROGRESS Observed: 01/06/2018 Status: COMPLETED Source: [place] 4:22 PM [facility] [place] REPOSITORY HNO ID: [id number] Author: Jameson Adams) Koffi Service: (none) Author Type: Physician Type: Progress Notes Filed: 01/06/2018 4:22 PM Note Text: Reviewed. PROGRESS Observed: 01/06/2018 Status: COMPLETED Source: [place] 3:50 PM [facility] [place] REPOSITORY HNO ID: [id number] Author: Remi Briseno) Brent Service: (none) Author Type: Registered Nurse Type: Progress Notes Filed: 01/06/2018 4:20 PM Note Text: [facility] scheduled for f/u appt with [facility] to see Mandy Yanez CNP on 01/20 at 12:45 in [place] office, verbalized understanding by teach back. Also states pt has an US at [facility] scheduled on 01/[address] Martin. Also has ordered labwork for Dr. Martin; A1C, Vit D, Urine Protein/Creat Ratio, Urine Alb/Creat Ratio, CBC, U/A, Renal Function Panel, PTH, Calcium, Uric Acid. Remi Kennedy RN TC to [facility], discussed Gastric Emptying Study and Hosp F/U appt for pt. Scheduled F/U appt with Arsen Pringle CNP for 01/20 @ 12:45 in [place]. States they don't have the discharge summary and Dr. Patterson is on vacation so they are unsure about the Gastric Emptying Study. Arsen Yanez is out of the office, they will call [facility] back tomorrow regarding study. Remi Kennedy RN [facility], states the paper given her for pt states pt is to have Gastric Emptying Study, Dx: Dysphagia, Retained Food in Stomach on Eval. Phone Number Mandy Yanez CNP [phone], [facility]. Remi Kennedy RN URINALYSIS WITH Collected: 01/06/2018 Status: F Source: [facility] 1:11 PM [facility] REPOSITORY TYPE CODE TESTS RESULT OUT OF RANGE REFERENCE UNITS LAB UCOL Yellow Color Yellow LAB [facility] Clear Clarity Abnormal Cloudy Alert LAB UGLUC Negative mg/dL Glucose, Urine Negative LAB UBIL Negative Bilirubin, Urine Negative LAB UKET Negative Ketones, Urine Negative LAB USPG 1.005-1.030 Specific [place], Ur 1.009 LAB UHGB Negative Hemoglobin/Blood, Negative Ur LAB UPH 4.5-8.0 pH 7.0 LAB UPROT Negative mg/dL Protein, Urine Negative LAB UUROB Normal Urobilinogen Normal LAB UNITR Negative Nitrites Negative LAB ULKEST Negative Leukest Abnormal 3+ Alert LAB UCOM Comments SEE COMMENT Result Comment: N/A LAB UMCOM Urine SEE Tyrell Comment COMMENT Result Comment: N/A LAB UWBC 0-5 /HPF Abnormal WBC Alert 6-10 LAB URBC 0-3 /HPF RBC 0-3 LAB UEPI /HPF Epithelial Cells SEE COMMENT Result Comment: Few Squamous Epithelial Cells Few Non-Squamous Epithelial Cells Performed By: #### UAWMIC #### [facility] [address] [address] CBC AND DIFFERENTIAL Collected: 01/06/2018 Status: F Source: [place] 1:10 PM [facility] REPOSITORY TYPE CODE TESTS RESULT OUT OF RANGE REFERENCE UNITS LAB WBC 3.70-11.00 k/uL WBC 6.59 Result Comment: Less than optimal volume of specimen received and tested. LAB RBC 3.90-5.20 m/uL RBC 4.19 LAB HGB 11.5-15.5 g/dL Hemoglobin 12.7 LAB HCT 36.0-46.0 % Hematocrit 39.6 LAB MCV 80.0-100.0 fL MCV 94.5 LAB MCH 26.0-34.0 pG MCH 30.3 LAB MCHC 30.5-36.0 g/dL MCHC 32.1 LAB RDWCV 11.5-15.0 % RDW-CV High 15.4 LAB PLTCT 150-400 k/uL Platelet Low Count 149 LAB MPV 9.0-12.7 fL MPV 10.0 LAB ANEUT % Neut% 71.0 LAB AANEUT 1.45-7.50 k/uL Abs Neut 4.68 LAB ALYMP % Lymph% 17.3 LAB AALYMP 1.00-4.00 k/uL Abs Lymph 1.14 LAB AMONO % Stoddard% 7.7 LAB AAMONO <0.87 k/uL Abs [place] 0.51 LAB AEOS % Eosin% 3.2 LAB AAEOS <0.46 k/uL Abs Eosin 0.21 LAB ABASO % Baso% 0.8 LAB AABASO <0.11 k/uL Abs Baso 0.05 LAB AUNRBC 0 /100 WBC NRBCs High 0.2 LAB ABNRBC <0.01 k/uL Absolute High nRBC 0.01 LAB DTYP DTYPE Auto Diff Performed By: #### CBCDIF, NTBNP, CMP #### [facility] [address] [id number] NT PRO BNP Collected: 01/06/2018 Status: F Source: [place] 1:10 PM [facility] REPOSITORY TYPE CODE TESTS RESULT OUT OF REFERENCE UNITS RANGE LAB PBNP <450 pg/mL High PRO B Natr 1577 Peptide Performed By: #### CBCDIF, NTBNP, CMP #### [id number] [address] COMP METABOLIC PANEL Collected: 01/06/2018 Status: F Source: [place] 1:10 PM [facility] REPOSITORY TYPE CODE TESTS RESULT OUT OF REFERENCE UNITS RANGE LAB TP 6.3-8.0 g/dL Low Protein, Total 6.2 LAB ALB 3.9-4.9 g/dL Low Albumin 3.1 LAB CA 8.5-10.2 mg/dL Calcium, Total 8.9 LAB TBIL 0.2-1.3 mg/dL Bilirubin, Total 0.6 LAB ALKP 32-117 U/L Alkaline Phosphatase 82 LAB AST 13-35 U/L AST 27 LAB GLU 74-99 mg/dL Glucose High 168 Result Comment: The [place] Diabetes Association (ADA) provides guidance for cutoff values for fasting glucose and random glucose. The ADA defines fasting as no caloric intake for at least 8 hours. Fas ting plasma glucose results between 100 to 125 mg/dL indicate increased risk for diabetes (prediabetes). Fasting plasma glucose results greater than or equal to 126 mg/dL meet the criteria for diagnosis of diabetes. In the absence of unequivocal hyperglycemia, results should be confirmed by repeat testing. In a patient with classic symptoms of hyperglycemia or hyperglycemic crisis, random plasma glucose results greater than or equal to 200 mg/dL meet the criteria for diagnosis of diabetes. Reference: Standards of Medical Care in Diabetes 2016, [place] [employer] Association. Diabetes Care. 2016.39(Suppl 1). LAB BUN 7-21 mg/dL BUN High 37 LAB CRET 0.58-0.96 mg/dL Creatinine High 1.51 LAB NA 136-144 mmol/L Sodium 138 LAB K 3.7-5.1 mmol/L Potassium High 5.5 LAB CL 97-105 mmol/L Chloride 100 LAB CO2 22-30 mmol/L CO2 25 LAB AGAP 9-18 mmol/L Anion Gap 13 LAB ALT 7-38 U/L ALT 26 LAB GFRAA eGFR- Amer. 41 LAB GFRNAA . eGFR-All Other Races 34 Result Comment: eGFR (Estimated GFR) Units of measure: mL/min/1.73 meters squared eGFR is derived from the reexpressed MDRD Study equation using the following parameters: serum creatinine, age, gender and race. The creatinine assay has been calibrated to be traceable to IDMS. An eGFR <60 mL/min/1.73m2 for >3 months is consistent with chronic kidney disease. Refer to KDOQI guidelines for clinical interpretation. In patients with unstable renal function, e.g. those with acute kidney injury, the eGFR may not accurately reflect actual GFR. Performed By: #### CBCDIF, NTBNP, CMP #### [facility] [place] [address] [place], [place] [address] Observed: 01/06/2018 Status: F Source: [place] URINE CULTURE 1:10 PM [facility] REPOSITORY Sp. Request/Comment: - Best Practice Alert: To ensure optimal transport conditions and accurate culture results transfer urine specimens to hernandez top C and S preservative tube. Culture Result - <10,000 CFU/ml Normal urogenital mitra Performed By: #### URCUL #### [facility] [place] [address] [place], [place] [id number] XR CHEST 2V FRONTAL/LAT Observed: 01/06/2018 Status: F Source: [place] 12:24 PM [facility] REPOSITORY * * *Final Report* * * DATE OF EXAM: Jan 06 2018 12:24PM WOX [id number] - XR CHEST 2V FRONTAL/LAT / PROCEDURE REASON: multiple diagnoses * * * * Physician Interpretation * * * * EXAMINATION: CHEST RADIOGRAPH (2 VIEW FRONTAL and LATERAL) Clinical History: Pneumonia, unspecified organism Chronic obstructive pulmonary disease, unspecified MQ: [id number] Comparison: Chest x-ray on 12/23/2017 RESULT: Lines, tubes, and devices: No change in position of left chest single chamber AICD. Lungs and pleura: Left-sided small pleural effusion is present, with associated left lower lung atelectasis/infiltrates. Also noted obscuring of the pulmonary markings. No right-sided pleural effusion. No pneumothorax. Cardiomediastinal silhouette: There is cardiomegaly. There appears to be a coronary stent. Other: Status post median sternotomy. IMPRESSION: Left-sided small pleural effusion with associated lower lung atelectasis/infiltrates. Obscuring of the pulmonary markings, suggestive of pulmonary venous congestion. Cardiomegaly. Service Delivery Supervisor: SALINAS Transcribe Date/Time: Jan 06 2018 12:30P Dictated by : LISA MILLER MD This examination was interpreted and the report reviewed and electronically signed by: LISA MILLER MD on Jan 06 2018 12:33PM EST [id number] PROGRESS Observed: 01/06/2018 Status: COMPLETED Source: [place] 12:15 PM [facility] REPOSITORY HNO ID: [id number] Author: Sarahi Freeman (Guadalupe German Service: (none) Author Type: Warehouse Material Handler Type: Progress Notes Filed: 01/06/2018 12:24 PM Note Text: Radiology Service Progress Note PATIENT NAME: Luz Baca DATE OF SERVICE: January 06, 2018 TIME: 12:15 PM PATIENT IDENTITY VERIFICATION COMPLETED USING TWO (2) METHODS: Patient confirmed name verbally and Date of . PATIENT GENDER DATA: Female. status: : No status: NO. PATIENT RELEVANT IMPLANT DATA REVIEWED: Not Applicable RADIOLOGY DEPARTMENT: General X-ray: Exam(s) Completed: Chest X-Ray PERIPHERAL IV DATA: Not applicable SIGNED BY: Sarahi Martinez, January 06, 2018 12:15 PM PROGRESS Observed: 01/06/2018 Status: COMPLETED Source: [place] 12:09 PM [facility] REPOSITORY HNO ID: [id number] Author: Remi Briseno) Brent Service: (none) Author Type: Registered Nurse Type: Progress Notes Filed: 01/06/2018 3:50 PM Note Text: PRIMARY CARE COORDINATION IN OFFICE VISIT WITH PCP Patient has been identified by name and date of . PCP Assessment/Plan: Reviewed PCP plan with patient using Teach Back Discussed f/u with gastro for Gastric Emptying study. Pt continues to choke with eating or drinking even with following precautions Discussed re-scheduling appt with Arsen Adkins to sooner due to continued wheezing, SOB and productive cough Pt unsure of next appt with nephrology, Dr. Martin PCC Plan of Care: Patient concerns: Pt continues to have constant wheezing, productive cough and SOB, occasionally at rest. Pt continues to have intermittent chest pain, took 1 NTG w/ relief since PCC call Pt continues to choke even with ST precautions Discussed insomnia, pt will try OTC melatonin 10 mg. Patient goals: Pt will f/u with specialists as scheduled Pt will call squad if she takes 3 NTG, without waiting to see if 3rd tablet is helping. PCC Interventions: Re-scheduled appt with Arsen Adkins for tomorrow at 11:[address] Martin', pt's next appt is 01/24 Asked daughter about scheduling appt with GI, states they gave her a paper with a number to call to schedule gastric emptying study but when she called they said they thought it was already done so they were going to check and call her back but no one has called. Instructed to call PCC with the number on the paper and PCC will f/u on scheduling. Next Office Visit: 01/26/2018 Plan For Next Call: Next week Remi Kennedy RN January 06, 2018 PROGRESS Observed: 01/06/2018 Status: COMPLETED Source: [place] 11:08 AM [facility] REPOSITORY HNO ID: [id number] Author: Jameson Kamara Service: (none) Author Type: Physician Type: Progress Notes Filed: 01/07/2018 9:29 AM Note Text: Chief Complaint Patient presents with: ER F/U: 12/31-pneumonia HPI Luz Baca is a 77 year old female who presents here today for Hospital Discharge Follow up. Patient was treated at [facility] from 11/25 to 12/31 for HCAP and acute on chronic CHF with management of chronic medical conditions. Hospital discharge summary as follows: Date of Admission: 12/23/2017 Date of Discharge: 12/31/17 Where I Will be Going after Discharge: Home with Home Health Care My Condition at Discharge: Stable ? My Doctors and Medical Team: ? My Main Hospital Doctor: Peyman Guerrero ? My Primary Care Physician (Family Doctor): Jameson Kamara MD ? 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 ID consult ? The Reason I was in the Hospital/Main Diagnosis: Aspiration PNA, copd exacerbation, dysphagia ? Summary of What Happened When in the Hospital: ? Hospital course:??This is a 77 year old female who presents with hx of AFIB, cardiomegaly, PM, CHF, CAD, CKD, COPD, home O2 2.5 l/m, GERD, morbid obesity, pneumonia, who was admitted on Dec 10 to and discharged home. Since than not been feeling much better. Difficult to take deep breath and still productive cough so got admitted and managed as follows: ? HCAP (healthcare-associated pneumonia), suspected aspiration PNA with episodes of choking food/liquids Feels slowly improving, c/o mild sob with activity which seems to be chronic in nature - started with IV Vanco and Aztreonam initially and changed to Cefepime later - blood cx- no growth, sputum culture- Few Normal respiratory mitra present , negative nasal MRSA - consulted ID due to recurrent admission/HCAP for antibiotic choice, changed to Meropenum IV - consulted speech therapy, suspicion of aspiration PNA - MBS done - poor esophageal emptying while in an upright posture; ?Retrograde flow is noted below the level of the pharyngoesophageal segment. no occurrence of laryngeal penetration /aspiration is noted at this time. - Esophagogram- Esohagus very dilated with no apparent primary peristaltic wave. ?Did appear to be some narrowing at the gastroesophageal junction. ?Correlation with endoscopy recommended. pNo aspiration was seen - consulted GI; s/p EGD today 12/31- 3cm hiatal hernia ?Schatzki's Ring ?Gastric retention of food, s/p dilation and biopsy, f//u results - plan for out pt gastric emptying studies per GI - aspiration precautions - antibiotics changed to po flagyl and Omnicef until 01/06/18 ?? Acute on chronic combined systolic and diastolic CHF (congestive heart failure) Acute diastolic heart failure (LVEF 50%) HOCM- Status post septal myomectomy at the time of CABG 2003 CAD Status post CABG ?2, 07/18/04, VU to LAD, SVG to PDA; PCI ?6 RCA, 2013 PCI ?3 2015 Status post myocardial perfusion imaging stress test 08/11/17 with possible prior apical infarct and no ischemia, EF 50%. ICD - most likely some fluid overload - Pro BNP 2600 - cont with fluid restriction - Last Echo 12/21/2017 LVEF 50% with Grade 3 diastolic dysfunction - St Rob AICD / PM - minimal rate at 60 - nml function on check today. Result on chart. - negative 4.8 liter so far - consulted Dr. Yeung. - continue statin - continue apixaban for anticoagulation - resumed aspirin due to multi-vessel PCI in the past - changed lasix to 40 mg po dailye spironolactone - continu ?? She can follow up as an outpatient with Dr. Cardona on discharge Since discharge, patient has been taking Omnicef and Flagyl as prescribed without side effects. Last dosages are today. No longer on oral steroids. Has incentive spirometer, but using very rarley. Still complaining of SOB with exertion despite oxygen 2.5 L via NC, wheezing, and productive cough. Using nebulizer 3-4 times per day which helps with symptoms. Denies fever, chills. Next appointment with pulmonology not until next month, will have md do resident urgent care Remi Kennedy call to set up earlier appointment. Admits to chest pain since discharge requiring nitro x2. Has been taking Imdur ER 30 mg BID, will increase to 60 mg daily. Last episode of chest pain was yesterday. Has follow up with cardiology on 01/18/18. Using lasix 40 mg in the morning and 20 mg at night. Complains of LE edema and has gone up in 2 lbs in weight since she was here on 12/23. Denies orthopnea. Despite dilation of esophagus, patient still complaining of trouble swallowing and reflux. Daughter unsuccessful setting up the gastric emptying study with GI. Will call to facilitate. Patient has home health coming out to help with PT and OT 2 times per week. . Does not have aide to help with ADLs, daughter helping instead. Tolerating PO diet. Past medical history, appointments, medications, allergies reviewed. Previous Medical History PAST MEDICAL HISTORY Diagnosis Date - Arthritis - Atrial fibrillation (HCC) - CAD (coronary artery disease) stents x9, defibrillator, CABG. Seeing Dr. Cardona - Cardiac defibrillator in place - Cardiomegaly - Carotid artery disease (HCC) left - CKD (chronic kidney disease), stage IV ([facility]) - COPD (chronic obstructive pulmonary disease) ([facility]) Dr. Cruz - Depression - Diabetes ([facility]) - Diabetic neuropathy ([facility]) - GERD (gastroesophageal reflux disease) - Gout - HH (hiatus hernia) - HOCM (hypertrophic obstructive cardiomyopathy) ([facility]) - HTN (hypertension) - Hyperlipidemia - Morbid obesity with BMI of 40.0-44.9, adult ([facility]) - Pacemaker - Pneumonia h/o pneumonia/bronchitis - Renal insufficiency 2003 post op - Sleep apnea 2011 not on CPAP, unable to tolerate mask 02/2017 - SVT (supraventricular tachycardia) ([facility]) NSVT and questionable VT in 2003 post op Previous Surgical History PAST SURGICAL HISTORY Procedure Laterality Date - PAST SURGICAL HISTORY OF 07/18/2004 Septal myectomy and CABG x2 (DEBORAH-LAD, SVG-PDA). - PAST SURGICAL HISTORY OF left breast nodule removed - PAST SURGICAL HISTORY OF hysterectomy - PAST SURGICAL HISTORY OF perianal abscess drained - PAST SURGICAL HISTORY OF cholecystectomy - PAST SURGICAL HISTORY OF skin lesions removed Family History FAMILY HISTORY Problem Relation Age of Onset - Hypertension Mother living at age 93, HTN - Heart Failure Mother [place] - Cancer Father age 71, lung cancer Patient Allergies ALLERGIES Allergen Reactions - Bactrim [Sulfametho* Other: See Comments My throat swells up. - Latex Rash, Itching Itching and welts. No wheezing or shortness of breath. - Penicillins Rash, Itching Tolerated ceftriaxone during 11/2017 admission and cefepime during 12/2017 admission - Tetracycline Rash, GI Upset Emesis and diarrhea. - Atorvastatin Rash - Codeine Other: See Comments Numbness - Dilaudid [Hydromorp* Mental Status Change - Meperidine - Pentazocine - Pioglitazone Unknown - Propoxyphene Current Medications Current Outpatient Prescriptions on File Prior to Visit: pantoprazole DR (PROTONIX) 40 mg tablet Take 1 tablet by mouth twice daily. furosemide (LASIX) 40 mg tablet Take 60 mg (1.5 tablets) by mouth every morning and 40 mg (1 tablet) every day around noon. cefdinir (OMNICEF) 300 mg capsule Take 1 capsule by mouth twice daily for 6 days. metroNIDAZOLE (FLAGYL) 500 mg tablet Take 1 tablet by mouth three times daily for 6 days. nystatin (MYCOSTATIN) 100,000 unit/mL suspension Take 2 mL by mouth four times daily for 7 days. SWISH AND SWALLOW 2 ML 4 TIMES PER DAY. insulin aspart U-100 (NOVOLOG FLEXPEN U-100 INSULIN) 100 unit/mL inpn Inject 10 Units subcutaneously three times daily with meals. insulin glargine (LANTUS SOLOSTAR U-100 INSULIN) 100 unit/mL (3 mL) inpn Inject 45 Units subcutaneously every morning. insulin glargine (LANTUS SOLOSTAR U-100 INSULIN) 100 unit/mL (3 mL) inpn Inject 30 Units subcutaneously daily at bedtime. gabapentin (NEURONTIN) 300 mg capsule Take 2 capsules by mouth twice daily for 90 days. potassium chloride ER (K-DUR, KLOR-CON) 10 mEq tablet TAKE ONE TABLET BY MOUTH DAILY WITH BREAKFAST colchicine (COLCRYS) 0.6 mg tablet Take 0.6 mg by mouth once daily. apixaban (ELIQUIS) 5 mg tab(s) Take 5 mg by mouth twice daily. isosorbide mononitrate ER (IMDUR) 30 mg 24 hr tablet Take 30 mg by mouth once daily. simvastatin (ZOCOR) 40 mg tablet Take 40 mg by mouth every morning. benzonatate (TESSALON PERLE) 100 mg capsule Take 100 mg by mouth three times daily as needed. spironolactone (ALDACTONE) 25 mg tablet Take 1 tablet by mouth once daily. ipratropium-albuterol (DUONEB) 0.5 mg-3 mg(2.5 mg base)/3 mL nebu Inhale 3 mL as instructed every 4 hours as needed. guaiFENesin-dextromethorphan (ROBITUSSIN DM) 100-10 mg/5 mL syrup Take 5-10 mL by mouth every 6 hours as needed for Cough. albuterol (PROVENTIL) 5 mg/mL nebu Inhale 0.5 mL as instructed one time only for 1 dose. 1 DOSE NOW - BACK OFFICE. PLACE 0.5 ML PER DROPPER AND 2.5 ML OF NORMAL SALINE INTO RESERVOIR. nitroglycerin sublingual (NITROQUICK) 0.4 mg SL tablet Dissolve 1 tablet under the tongue every 5 minutes as needed. gabapentin (NEURONTIN) 300 mg capsule Take 2 capsules by mouth three times daily for 30 days. (Patient taking differently: Take 600 mg by mouth twice daily. ) albuterol HFA (VENTOLIN HFA) 90 mcg/actuation inhaler Inhale 2 Puffs as instructed every 4 hours as needed. OXYGEN, HOME THERAPY, Inhale 2.5 L/min as instructed as directed. No current facility-administered medications on file prior to visit. Social History Social History Marital status: Spouse name: Years of education: Number of children: Social History Main Topics Smoking status: Former Smoker Packs/day: 2.50 Years: 43.00 Types: Cigarettes Start date: 1961 Quit date: 07/07/2004 Smokeless status: Never Used Alcohol use: No Drug use: No Other Topics Concern Caffeine Concern Yes Comment:coffee 1 cup daily Special Diet No Comment:Regular Exercise No Comment:no unable, due to SOB x several months. Review of Symptoms REVIEW OF SYSTEMS GENERAL: No weight loss, malaise or fevers RESPIRATORY: See HPI CARDIOVASCULAR: See HPI GI: No nausea, vomiting, or diarrhea : No history of dysuria,hematuria, incontinence. Admits to urinary frequency, may be related to lasix dosing SKIN: Negative for lesions, rash, and itching EXAM: BP 116/74 (BP Site: Left Arm, BP Position: Sitting, BP Cuff Size: Large Adult) Pulse 68 Temp (!) 35.8 ?C (96.4 ?F) (Left Tympanic) Resp 16 Wt 104.4 kg (230 lb 1.9 oz) SpO2 93% BMI 34.99 kg/m2 General Appearance: Well appearing, alert, in no acute distress, well-hydrated, well nourished.. Skin: Skin color, texture, turgor normal, no suspicious rashes or lesions. Head: Normocephalic, no masses, lesions, tenderness or abnormalities. Lungs: Positive findings: moderate air entry with bilateral moderate wheezing and rhonchi. Decreased sounds in bases. Heart: RRR without murmur, gallop, or rubs. No ectopy. Abdomen: Normal abdominal exam, Abdomen soft, non-tender. Bowel sounds normal. No masses, organomegaly. Extremities: Edema: Trace to 1+ edema to knees bilaterally. Health Maintenance List TETANUS due on 1952 COLORECTAL CANCER SCREENING,SEE MODIFIER due on 1991 BONE DENSITY due on 2006 ADULT PREVNAR-13 due on 2006 PNEUMOVAX AGE 65 AND OVER WITH 5YR LOOKBACK(1) due on 2006 HBA1C due on 04/26/2018 URINE ALBUMIN CREATININE RATIO due on 05/17/2018 LDL due on 05/17/2018 DIABETIC FOOT EXAM due on 07/07/2018 DILATED RETINAL EXAM due on 10/27/2018 INFLUENZA Completed Data reviewed Component Latest Ref Rng AND Units 12/30/2017 12/31/2017 Glucose 74 - 99 mg/dL 203 (H) 336 (H) BUN 7 - 21 mg/dL 70 (H) 64 (H) Creatinine 0.58 - 0.96 mg/dL 1.46 (H) 1.39 (H) Sodium 136 - 144 mmol/L 142 139 Potassium 3.7 - 5.1 mmol/L 5.4 (H) 5.1 Chloride 97 - 105 mmol/L 101 96 (L) CO2 22 - 30 mmol/L 34 (H) 37 (H) Anion Gap 9 - 18 mmol/L 7 (L) 6 (L) Calcium 8.5 - 10.2 mg/dL 8.8 8.5 eGFR- 42 45 eGFR-All Other Races . 35 37 WBC 3.70 - 11.00 k/uL 10.16 9.50 RBC 3.90 - 5.20 m/uL 4.05 4.15 Hemoglobin 11.5 - 15.5 g/dL 11.9 12.5 Hematocrit 36.0 - 46.0 % 39.3 40.5 MCV 80.0 - 100.0 fL 97.0 97.6 MCH 26.0 - 34.0 pG 29.4 30.1 MCHC 30.5 - 36.0 g/dL 30.3 (L) 30.9 RDW-CV 11.5 - 15.0 % 15.9 (H) 16.0 (H) Platelet Count 150 - 400 k/uL 104 (L) 110 (L) MPV 9.0 - 12.7 fL 9.5 9.9 Magnesium 1.7 - 2.3 mg/dL 2.6 (H) 2.6 (H) ASSESSMENT/PLAN: 1. HCAP (healthcare-associated pneumonia) - ICD9: 486, ICD10: J18.9 (primary diagnosis) Will order STAT xray due to continued wheezing, productive cough, and SOB despite oxygen use. Finish abx as prescribed and will schedule patient earlier appointment with pulmonology. - XR CHEST 2V FRONTAL/LAT - XR CHEST 2V FRONTAL/LAT 2. Acute on chronic combined systolic and diastolic CHF (congestive heart failure) (HCC) - ICD9: 428.43, 428.0, ICD10: I50.43 Continue lasix 40mg in the morning and 20 in pm. Will check BNP and renal function. Next appointment with nephrology on 01/24. - NT PRO BNP - CBC + DIFF - COMP METABOLIC PANEL 3. Schatzki's ring - ICD9: 750.3, ICD10: K22.2 Will have patient follow up with GI for gastric emptying study and possible repeat EGD with dilation. 4. SVT (supraventricular tachycardia) ([facility]) - ICD9: 427.89, ICD10: I47.1 Normal exam today. Continue current regimen and follow up with cardiology on 01/18. 5. Coronary artery disease, angina presence unspecified, unspecified vessel or lesion type, unspecified whether rincon or transplanted heart - ICD9: 414.00, ICD10: I25.10 Will change Imdur from 30 mg BID to 60 mg daily. To call if chest pain persists. Discussed indications for ER evaluation. - ISOSORBIDE MONONITRATE ER 60 MG TABLET,EXTENDED RELEASE 24 HR 6. HOCM (hypertrophic obstructive cardiomyopathy) (HCC) - ICD9: 425.11, ICD10: I42.1 Recommendations per cardiology. 7. Essential hypertension - ICD9: 401.9, ICD10: I10 - good control - Continue current medication(s) - Encouraged dietary sodium restriction/DASH diet - Recommended regular aerobic exercise. - Reviewed risks of HTN and principles of treatment - Goal of BP <140/90 8. Chronic obstructive pulmonary disease, unspecified COPD type (HCC) - ICD9: 496, ICD10: J44.9 Will restart prednisone based on today's symptoms. Obtain CXR. Follow up with pulmonology. - PREDNISONE 10 MG TABLET - XR CHEST 2V FRONTAL/LAT 9. Sleep apnea, unspecified type - ICD9: 780.57, ICD10: G47.30 Recommend use of CPAP. 10. Atrial fibrillation, unspecified type (HCC) - ICD9: 427.31, ICD10: I48.91 Rate controlled. Continue current regimen. 11. CKD (chronic kidney disease), stage IV (HCC) - ICD9: 585.4, ICD10: N18.4 Will check CMP and have patient follow up with nephrology. 12. Urinary frequency - ICD9: 788.41, ICD10: R35.0 Likely / lasix. Will check UA to confirm and call with results. - URINALYSIS WITH MICROSCOPIC - URINE CULTURE I spent 45 minutes in the visit, with more than 50% of the total kqoh-fy-qkfw time of the visit in counseling / coordination of care. Jameson Kamara MD CNOV Observed: 01/06/2018 Status: COMPLETED Source: [place] 10:40 AM [facility] REPOSITORY Office Visit (FAMPWS) LUZ BACA ([id number]) 1940 F Date Time Provider Department 01/06/18 10:40 AM JAMESON KAMARA) FAMPWS During your visit today, we recorded the following information about you: Temperature Pulse Respiration Blood pressure 96.4 degrees 68/minute 16/minute 116/74 Weight 104.4 kg Jameson Kamara MD 01/07/2018 9:29 AM Signed Chief Complaint Patient presents with: ER F/U: 12/31-pneumonia HPI Luz Baca is a 77 year old female who presents here today for Hospital Discharge Follow up. Patient was treated at [facility] from 11/25 to 12/31 for HCAP and acute on chronic CHF with management of chronic medical conditions. Hospital discharge summary as follows: Date of Admission: 12/23/2017 Date of Discharge: 12/31/17 Where I Will be Going after Discharge: Home with Home Health Care My Condition at Discharge: Stable ? My Doctors and Medical Team: ? My Main Hospital Doctor: Peyman Guerrero ? My Primary Care Physician (Family Doctor): Jameson Kamara MD ? 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 ID consult ? The Reason I was in the Hospital/Main Diagnosis: Aspiration PNA, copd exacerbation, dysphagia ? Summary of What Happened When in the Hospital: ? Hospital course:??This is a 77 year old female who presents with hx of AFIB, cardiomegaly, PM, CHF, CAD, CKD, COPD, home O2 2.5 l/m, GERD, morbid obesity, pneumonia, who was admitted on Dec 10 to and discharged home. Since than not been feeling much better. Difficult to take deep breath and still productive cough so got admitted and managed as follows: ? HCAP (healthcare-associated pneumonia), suspected aspiration PNA with episodes of choking food/liquids Feels slowly improving, c/o mild sob with activity which seems to be chronic in nature - started with IV Vanco and Aztreonam initially and changed to Cefepime later - blood cx- no growth, sputum culture- Few Normal respiratory mitra present , negative nasal MRSA - consulted ID due to recurrent admission/HCAP for antibiotic choice, changed to Meropenum IV - consulted speech therapy, suspicion of aspiration PNA - MBS done - poor esophageal emptying while in an upright posture; ?Retrograde flow is noted below the level of the pharyngoesophageal segment. no occurrence of laryngeal penetration /aspiration is noted at this time. - Esophagogram- Esohagus very dilated with no apparent primary peristaltic wave. ?Did appear to be some narrowing at the gastroesophageal junction. ?Correlation with endoscopy recommended. pNo aspiration was seen - consulted GI; s/p EGD today 12/31- 3cm hiatal hernia ?Schatzki's Ring ?Gastric retention of food, s/p dilation and biopsy, f//u results - plan for out pt gastric emptying studies per GI - aspiration precautions - antibiotics changed to po flagyl and Omnicef until 01/06/18 ?? Acute on chronic combined systolic and diastolic CHF (congestive heart failure) Acute diastolic heart failure (LVEF 50%) HOCM- Status post septal myomectomy at the time of CABG 2003 CAD Status post CABG ?2, 07/18/04, VU to LAD, SVG to PDA; PCI ?6 RCA, 2013 PCI ?3 2015 Status post myocardial perfusion imaging stress test 08/11/17 with possible prior apical infarct and no ischemia, EF 50%. ICD - most likely some fluid overload - Pro BNP 2600 - cont with fluid restriction - Last Echo 12/21/2017 LVEF 50% with Grade 3 diastolic dysfunction - [facility] Rob AICD / PM - minimal rate at 60 - nml function on check today. Result on chart. - negative 4.8 liter so far - consulted Dr. Yeung. - continue statin - continue apixaban for anticoagulation - resumed aspirin due to multi-vessel PCI in the past - changed lasix to 40 mg po dailye spironolactone - continu ?? She can follow up as an outpatient with Dr. Cardona on discharge Since discharge, patient has been taking Omnicef and Flagyl as prescribed without side effects. Last dosages are today. No longer on oral steroids. Has incentive spirometer, but using very rarley. Still complaining of SOB with exertion despite oxygen 2.5 L via NC, wheezing, and productive cough. Using nebulizer 3-4 times per day which helps with symptoms. Denies fever, chills. Next appointment with pulmonology not until next month, will have md do resident urgent care Remi Kennedy call to set up earlier appointment. Admits to chest pain since discharge requiring nitro x2. Has been taking Imdur ER 30 mg BID, will increase to 60 mg daily. Last episode of chest pain was yesterday. Has follow up with cardiology on 01/18/18. Using lasix 40 mg in the morning and 20 mg at night. Complains of LE edema and has gone up in 2 lbs in weight since she was here on 12/23. Denies orthopnea. Despite dilation of esophagus, patient still complaining of trouble swallowing and reflux. Daughter unsuccessful setting up the gastric emptying study with GI. Will call to facilitate. Patient has home health coming out to help with PT and OT 2 times per week. . Does not have aide to help with ADLs, daughter helping instead. Tolerating PO diet. Past medical history, appointments, medications, allergies reviewed. Previous Medical History PAST MEDICAL HISTORY Diagnosis Date - Arthritis - Atrial fibrillation ([facility]) - CAD (coronary artery disease) stents x9, defibrillator, CABG. Seeing Dr. Cardona - Cardiac defibrillator in place - Cardiomegaly - Carotid artery disease ([facility]) left - CKD (chronic kidney disease), stage IV ([facility]) - COPD (chronic obstructive pulmonary disease) ([facility]) Dr. Cruz - Depression - Diabetes ([facility]) - Diabetic neuropathy ([facility]) - GERD (gastroesophageal reflux disease) - Gout - HH (hiatus hernia) - HOCM (hypertrophic obstructive cardiomyopathy) ([facility]) - HTN (hypertension) - Hyperlipidemia - Morbid obesity with BMI of 40.0-44.9, adult ([facility]) - Pacemaker - Pneumonia h/o pneumonia/bronchitis - Renal insufficiency 2003 post op - Sleep apnea 2011 not on CPAP, unable to tolerate mask 02/2017 - SVT (supraventricular tachycardia) ([facility]) NSVT and questionable VT in 2003 post op Previous Surgical History PAST SURGICAL HISTORY Procedure Laterality Date - PAST SURGICAL HISTORY OF 07/18/2004 Septal myectomy and CABG x2 (DEBORAH-LAD, SVG-PDA). - PAST SURGICAL HISTORY OF left breast nodule removed - PAST SURGICAL HISTORY OF hysterectomy - PAST SURGICAL HISTORY OF perianal abscess drained - PAST SURGICAL HISTORY OF cholecystectomy - PAST SURGICAL HISTORY OF skin lesions removed Family History FAMILY HISTORY Problem Relation Age of Onset - Hypertension Mother living at age 93, HTN - Heart Failure Mother [place] - Cancer Father age 71, lung cancer Patient Allergies ALLERGIES Allergen Reactions - Bactrim [Sulfametho* Other: See Comments ANDquot;My throat swells up.ANDquot; - Latex Rash, Itching Itching and welts. No wheezing or shortness of breath. - Penicillins Rash, Itching Tolerated ceftriaxone during 11/2017 admission and cefepime during 12/2017 admission - Tetracycline Rash, GI Upset Emesis and diarrhea. - Atorvastatin Rash - Codeine Other: See Comments Numbness - Dilaudid [Hydromorp* Mental Status Change - Meperidine - Pentazocine - Pioglitazone Unknown - Propoxyphene Current Medications Current Outpatient Prescriptions on File Prior to Visit: pantoprazole DR (PROTONIX) 40 mg tablet Take 1 tablet by mouth twice daily. furosemide (LASIX) 40 mg tablet Take 60 mg (1.5 tablets) by mouth every morning and 40 mg (1 tablet) every day around noon. cefdinir (OMNICEF) 300 mg capsule Take 1 capsule by mouth twice daily for 6 days. metroNIDAZOLE (FLAGYL) 500 mg tablet Take 1 tablet by mouth three times daily for 6 days. nystatin (MYCOSTATIN) 100,000 unit/mL suspension Take 2 mL by mouth four times daily for 7 days. SWISH AND SWALLOW 2 ML 4 TIMES PER DAY. insulin aspart U-100 (NOVOLOG FLEXPEN U-100 INSULIN) 100 unit/mL inpn Inject 10 Units subcutaneously three times daily with meals. insulin glargine (LANTUS SOLOSTAR U-100 INSULIN) 100 unit/mL (3 mL) inpn Inject 45 Units subcutaneously every morning. insulin glargine (LANTUS SOLOSTAR U-100 INSULIN) 100 unit/mL (3 mL) inpn Inject 30 Units subcutaneously daily at bedtime. gabapentin (NEURONTIN) 300 mg capsule Take 2 capsules by mouth twice daily for 90 days. potassium chloride ER (K-DUR, KLOR-CON) 10 mEq tablet TAKE ONE TABLET BY MOUTH DAILY WITH BREAKFAST colchicine (COLCRYS) 0.6 mg tablet Take 0.6 mg by mouth once daily. apixaban (ELIQUIS) 5 mg tab(s) Take 5 mg by mouth twice daily. isosorbide mononitrate ER (IMDUR) 30 mg 24 hr tablet Take 30 mg by mouth once daily. simvastatin (ZOCOR) 40 mg tablet Take 40 mg by mouth every morning. benzonatate (TESSALON PERLE) 100 mg capsule Take 100 mg by mouth three times daily as needed. spironolactone (ALDACTONE) 25 mg tablet Take 1 tablet by mouth once daily. ipratropium-albuterol (DUONEB) 0.5 mg-3 mg(2.5 mg base)/3 mL nebu Inhale 3 mL as instructed every 4 hours as needed. guaiFENesin-dextromethorphan (ROBITUSSIN DM) 100-10 mg/5 mL syrup Take 5-10 mL by mouth every 6 hours as needed for Cough. albuterol (PROVENTIL) 5 mg/mL nebu Inhale 0.5 mL as instructed one time only for 1 dose. 1 DOSE NOW - BACK OFFICE. PLACE 0.5 ML PER DROPPER AND 2.5 ML OF NORMAL SALINE INTO RESERVOIR. nitroglycerin sublingual (NITROQUICK) 0.4 mg SL tablet Dissolve 1 tablet under the tongue every 5 minutes as needed. gabapentin (NEURONTIN) 300 mg capsule Take 2 capsules by mouth three times daily for 30 days. (Patient taking differently: Take 600 mg by mouth twice daily. ) albuterol HFA (VENTOLIN HFA) 90 mcg/actuation inhaler Inhale 2 Puffs as instructed every 4 hours as needed. OXYGEN, HOME THERAPY, Inhale 2.5 L/min as instructed as directed. No current facility-administered medications on file prior to visit. Social History Social History Marital status: Spouse name: Years of education: Number of children: Social History Main Topics Smoking status: Former Smoker Packs/day: 2.50 Years: 43.00 Types: Cigarettes Start date: 1961 Quit date: 07/07/2004 Smokeless status: Never Used Alcohol use: No Drug use: No Other Topics Concern Caffeine Concern Yes Comment:coffee 1 cup daily Special Diet No Comment:Regular Exercise No Comment:no unable, due to SOB x several months. Review of Symptoms REVIEW OF SYSTEMS GENERAL: No weight loss, malaise or fevers RESPIRATORY: See HPI CARDIOVASCULAR: See HPI GI: No nausea, vomiting, or diarrhea : No history of dysuria,hematuria, incontinence. Admits to urinary frequency, may be related to lasix dosing SKIN: Negative for lesions, rash, and itching EXAM: BP 116/74 (BP Site: Left Arm, BP Position: Sitting, BP Cuff Size: Large Adult) Pulse 68 Temp (!) 35.8 ?C (96.4 ?F) (Left Tympanic) Resp 16 Wt 104.4 kg (230 lb 1.9 oz) SpO2 93% BMI 34.99 kg/m2 General Appearance: Well appearing, alert, in no acute distress, well-hydrated, well nourished.. Skin: Skin color, texture, turgor normal, no suspicious rashes or lesions. Head: Normocephalic, no masses, lesions, tenderness or abnormalities. Lungs: Positive findings: moderate air entry with bilateral moderate wheezing and rhonchi. Decreased sounds in bases. Heart: RRR without murmur, gallop, or rubs. No ectopy. Abdomen: Normal abdominal exam, Abdomen soft, non-tender. Bowel sounds normal. No masses, organomegaly. Extremities: Edema: Trace to 1+ edema to knees bilaterally. Health Maintenance List TETANUS due on 1952 COLORECTAL CANCER SCREENING,SEE MODIFIER due on 1991 BONE DENSITY due on 2006 ADULT PREVNAR-13 due on 2006 PNEUMOVAX AGE 65 AND OVER WITH 5YR LOOKBACK(1) due on 2006 HBA1C due on 04/26/2018 URINE ALBUMIN CREATININE RATIO due on 05/17/2018 LDL due on 05/17/2018 DIABETIC FOOT EXAM due on 07/07/2018 DILATED RETINAL EXAM due on 10/27/2018 INFLUENZA Completed Data reviewed Component Latest Ref Rng ANDamp; Units 12/30/2017 12/31/2017 Glucose 74 - 99 mg/dL 203 (H) 336 (H) BUN 7 - 21 mg/dL 70 (H) 64 (H) Creatinine 0.58 - 0.96 mg/dL 1.46 (H) 1.39 (H) Sodium 136 - 144 mmol/L 142 139 Potassium 3.7 - 5.1 mmol/L 5.4 (H) 5.1 Chloride 97 - 105 mmol/L 101 96 (L) CO2 22 - 30 mmol/L 34 (H) 37 (H) Anion Gap 9 - 18 mmol/L 7 (L) 6 (L) Calcium 8.5 - 10.2 mg/dL 8.8 8.5 eGFR- 42 45 eGFR-All Other Races . 35 37 WBC 3.70 - 11.00 k/uL 10.16 9.50 RBC 3.90 - 5.20 m/uL 4.05 4.15 Hemoglobin 11.5 - 15.5 g/dL 11.9 12.5 Hematocrit 36.0 - 46.0 % 39.3 40.5 MCV 80.0 - 100.0 fL 97.0 97.6 MCH 26.0 - 34.0 pG 29.4 30.1 MCHC 30.5 - 36.0 g/dL 30.3 (L) 30.9 RDW-CV 11.5 - 15.0 % 15.9 (H) 16.0 (H) Platelet Count 150 - 400 k/uL 104 (L) 110 (L) MPV 9.0 - 12.7 fL 9.5 9.9 Magnesium 1.7 - 2.3 mg/dL 2.6 (H) 2.6 (H) ASSESSMENT/PLAN: 1. HCAP (healthcare-associated pneumonia) - ICD9: 486, ICD10: J18.9 (primary diagnosis) Will order STAT xray due to continued wheezing, productive cough, and SOB despite oxygen use. Finish abx as prescribed and will schedule patient earlier appointment with pulmonology. - XR CHEST 2V FRONTAL/LAT - XR CHEST 2V FRONTAL/LAT 2. Acute on chronic combined systolic and diastolic CHF (congestive heart failure) ([facility]) - ICD9: 428.43, 428.0, ICD10: I50.43 Continue lasix 40mg in the morning and 20 in pm. Will check BNP and renal function. Next appointment with nephrology on 01/24. - NT PRO BNP - CBC + DIFF - COMP METABOLIC PANEL 3. Schatzki's ring - ICD9: 750.3, ICD10: K22.2 Will have patient follow up with GI for gastric emptying study and possible repeat EGD with dilation. 4. SVT (supraventricular tachycardia) ([facility]) - ICD9: 427.89, ICD10: I47.1 Normal exam today. Continue current regimen and follow up with cardiology on 01/18. 5. Coronary artery disease, angina presence unspecified, unspecified vessel or lesion type, unspecified whether rincon or transplanted heart - ICD9: 414.00, ICD10: I25.10 Will change Imdur from 30 mg BID to 60 mg daily. To call if chest pain persists. Discussed indications for ER evaluation. - ISOSORBIDE MONONITRATE ER 60 MG TABLET,EXTENDED RELEASE 24 HR 6. HOCM (hypertrophic obstructive cardiomyopathy) ([facility]) - ICD9: 425.11, ICD10: I42.1 Recommendations per cardiology. 7. Essential hypertension - ICD9: 401.9, ICD10: I10 - good control - Continue current medication(s) - Encouraged dietary sodium restriction/DASH diet - Recommended regular aerobic exercise. - Reviewed risks of HTN and principles of treatment - Goal of BP ANDlt;140/90 8. Chronic obstructive pulmonary disease, unspecified COPD type ([facility]) - ICD9: 496, ICD10: J44.9 Will restart prednisone based on today's symptoms. Obtain CXR. Follow up with pulmonology. - PREDNISONE 10 MG TABLET - XR CHEST 2V FRONTAL/LAT 9. Sleep apnea, unspecified type - ICD9: 780.57, ICD10: G47.30 Recommend use of CPAP. 10. Atrial fibrillation, unspecified type (HCC) - ICD9: 427.31, ICD10: I48.91 Rate controlled. Continue current regimen. 11. CKD (chronic kidney disease), stage IV (HCC) - ICD9: 585.4, ICD10: N18.4 Will check CMP and have patient follow up with nephrology. 12. Urinary frequency - ICD9: 788.41, ICD10: R35.0 Likely / lasix. Will check UA to confirm and call with results. - URINALYSIS WITH MICROSCOPIC - URINE CULTURE I spent 45 minutes in the visit, with more than 50% of the total zuos-xk-hvun time of the visit in counseling / coordination of care. Jameson Kamara MD Referring Provider: JAMESON KAMARA) [[id number]] Allergies As of Date: 01/06/2018 Noted Allergy Reaction BACTRIM (SULFAMETHOXAZOLE-TRIMETH*05/17/2017 14 - Other: See Comments Comments: My throat swells up. LATEX 05/17/2017 2 - Rash 9 - Itching Comments: Itching and welts. No wheezing or shortness of breath. PENICILLINS 07/14/2004 2 - Rash 9 - Itching Comments: Tolerated ceftriaxone during 11/2017 admission and cefepime during 12/2017 admission TETRACYCLINE 09/29/2010 2 - Rash 8 - GI Upset Comments: Emesis and diarrhea. ATORVASTATIN 05/17/2017 2 - Rash CODEINE 05/17/2017 14 - Other: See Comments Comments: Numbness DILAUDID (HYDROMORPHONE (BULK)) 05/17/2017 1 - Mental Status Change MEPERIDINE 07/14/2004 PENTAZOCINE 07/14/2004 PIOGLITAZONE 05/17/2017 16 - Unknown PROPOXYPHENE 07/14/2004 Date Reviewed: 01/06/2018 Reviewed by: Sohail Longoria Ma - Fully Assessed Reason for Visit: ER F/U [41] Cmt: 12/31-pneumonia Primary Visit Diagnosis:HCAP (healthcare-associated pneumonia) [J18.9] Other Visit Diagnoses:Acute on chronic combined systolic and diastolic CHF (congestive heart failure) ([facility]) [I50.43] Schatzki's ring [K22.2] SVT (supraventricular tachycardia) ([facility]) [I47.1] Coronary artery disease, angina presence unspecified, unspecified vessel or lesion type, unspecified whether rincon or transplanted heart [I25.10] HOCM (hypertrophic obstructive cardiomyopathy) ([facility]) [I42.1] Essential hypertension [I10] Chronic obstructive pulmonary disease, unspecified COPD type ([facility]) [J44.9] Sleep apnea, unspecified type [G47.30] Atrial fibrillation, unspecified type ([facility]) [I48.91] CKD (chronic kidney disease), stage IV ([facility]) [N18.4] Urinary frequency [R35.0] Order(s):isosorbide mononitrate ER (IMDUR) 60 mg 24 hr tabletTake 1 tablet by mouth once daily.Disp: 30 tabletRfl: 5 predniSONE (DELTASONE) 10 mg tabletTake 4 tabs daily x 3 days, then 3 tabs x 3 days, 2 tabs x 3 days, then 1 tab x3 days with food.Disp: 30 tabletRfl: 1 NT PRO BNP [SQNTBNP] Order #: [id number] FUTURE CBC + DIFF [SQCBCDIF] Order #: [id number] FUTURE COMP METABOLIC PANEL [SQCMP] Order #: [id number] FUTURE URINALYSIS WITH MICROSCOPIC [SQUAWMIC] Order #: [id number]. #:[id number] URINE CULTURE [SQURCUL] Order #: [id number] FUTURE XR CHEST 2V FRONTAL/LAT [3167950] Order #: [id number] FUTURE Prescriptions as of 01/06/2018 Sig: ISOSORBIDE MONONITRATE ER 60 * Take 1 tablet by mouth once d* PANTOPRAZOLE 40 MG TABLET,DEL* Take 1 tablet by mouth twice * FUROSEMIDE 40 MG TABLET Take 60 mg (1.5 tablets) by m* CEFDINIR 300 MG CAPSULE Take 1 capsule by mouth twice* METRONIDAZOLE 500 MG TABLET Take 1 tablet by mouth three * NYSTATIN 100,000 UNIT/ML ORAL* Take 2 mL by mouth four times* INSULIN ASPART U-100 100 UNI* Inject 10 Units subcutaneousl* INSULIN GLARGINE (U-100) 100 * Inject 45 Units subcutaneousl* INSULIN GLARGINE (U-100) 100 * Inject 30 Units subcutaneousl* POTASSIUM CHLORIDE ER 10 MEQ * TAKE ONE TABLET BY MOUTH JANETH* APIXABAN 5 MG TABLET Take 5 mg by mouth twice janeth* SIMVASTATIN 40 MG TABLET Take 40 mg by mouth every mor* SPIRONOLACTONE 25 MG TABLET Take 1 tablet by mouth once d* IPRATROPIUM-ALBUTEROL 0.5 MG-* Inhale 3 mL as instructed leanne* DEXTROMETHORPHAN-GUAIFENESIN * Take 5-10 mL by mouth every 6* ALBUTEROL SULFATE CONCENTRATE* Inhale 0.5 mL as instructed o* NITROGLYCERIN 0.4 MG SUBLINGU* Dissolve 1 tablet under the t* GABAPENTIN 300 MG CAPSULE Take 2 capsules by mouth thre* Patient taking differently: Take 600 mg by mouth twice da* ALBUTEROL SULFATE HFA 90 MCG/* Inhale 2 Puffs as instructed * OXYGEN (HOME THERAPY) Inhale 2.5 L/min as instructe* PREDNISONE 10 MG TABLET Take 4 tabs daily x 3 days, t* Medication notes this encounter DEXTROMETHORPHAN-GUAIFENESIN 10 MG-100 MG/5 ML SYRUP >> Sohail Longoria Ma 01/06/2018 11:18 AM >> SOHAIL LONGORIA MA [facility] Jan 06, 2018 11:18 AM PRN GABAPENTIN 300 MG CAPSULE >> Sohail Longoria Ma 01/06/2018 11:18 AM >> SOHAIL LONGORIA MA [facility] Jan 06, 2018 11:18 AM Duplicate COLCHICINE 0.6 MG TABLET >> Sohail Longoria Ma 01/06/2018 11:17 AM >> SOHAIL LONGORIA MA [facility] Jan 06, 2018 11:17 AM No longer taking. BENZONATATE 100 MG CAPSULE >> Sohail Longoria Ma 01/06/2018 11:17 AM >> SOHAIL LONGORIA MA [facility] Jan 06, 2018 11:17 AM Therapy complete 01/05/18. Problem List As Of Date 01/06/2018 Noted Resolved HOCM (hypertrophic obstructive cardiomyopathy) * More... SVT (supraventricular tachycardia) [I47.1] More... Carotid artery disease (HCC) [I77.9] More... CAD (coronary artery disease) [I25.10] Essential hypertension [I10] More... Hyperlipidemia [E78.5] More... Pneumonia [J18.9] 10/27/2017 More... COPD (chronic obstructive pulmonary disease) [J* More... Sleep apnea [G47.30] More... HH (hiatus hernia) [K44.9] GERD (gastroesophageal reflux disease) [K21.9] More... Renal insufficiency [N28.9] More... Arthritis [M19.90] Numbness and tingling of right leg [R20.0, R20.* Depression [F32.9] Diabetes [E11.9] Atrial fibrillation (HCC) [I48.91] INVALID FOR* More... Diabetes mellitus due to underlying condition, *INVALID FOR* More... SUMMARY [V999.95] INVALID FOR* More... Dyspnea [R06.00] INVALID FOR* More... Heart failure, systolic, acute [I50.21] INVALID FOR* More... Obesity [E66.9] INVALID FOR* More... 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*INVALID FOR* Priority: B Elevated troponin [R74.8] INVALID FOR* COPD with acute exacerbation (HCC) [J44.1] INVALID FOR* Priority: D Acute on chronic respiratory failure with hypox*INVALID FOR* Priority: C HCAP (healthcare-associated pneumonia) [J18.9] INVALID FOR* Priority: A Prescriptions ordered this encounter Disp Refills Start End ISOSORBIDE MONONITRATE ER 60 MG TABL* 30 t* 5 01/06/2018 Route: ORAL Sig: Take 1 tablet by mouth once daily. PREDNISONE 10 MG TABLET 30 t* 1 01/06/2018 01/18/2018 Sig: Take 4 tabs daily x 3 days, then 3 tabs x 3 days, 2 tabs x 3 days, then 1 tab x3 days with food. Medications Discontinued During This Encounter gabapentin (NEURONTIN) 300 mg capsule 120 * 2 12/24/2017 01/06/2018 Route: ORAL Sig: Take 2 capsules by mouth twice daily for 90 days. Disc: Reason for discontinue is not on file. colchicine (COLCRYS) 0.6 mg tablet 01/06/2018 Class: Historical Med Route: ORAL Sig: Take 0.6 mg by mouth once daily. Disc: Reason for discontinue is not on file. benzonatate (TESSALON PERLE) 100 mg * 01/06/2018 Class: Historical Med Route: ORAL Sig: Take 100 mg by mouth three times daily as needed. Disc: Reason for discontinue is not on file. isosorbide mononitrate ER (IMDUR) 30* 01/06/2018 Class: Historical Med Route: ORAL Sig: Take 30 mg by mouth once daily. Disc: Reason for discontinue is not on file. Disposition: Return if symptoms worsen or fail to improve. Follow-up and Disposition History Recorded Encounter Status:Closed by JAMESON KAMARA MD on 01/07/18 LUDA Observed: 01/06/2018 Status: COMPLETED Source: [place] 12:00 AM [facility] REPOSITORY Patient Outreach (FAMPWS) LUZ BACA ([id number]) 1940 F Date Time Provider Department 01/06/18 REMI KENNEDY (RN) FAMPWS During your visit today, we recorded the following information about you: Remi Kennedy RN 01/06/2018 3:50 PM Addendum PRIMARY CARE COORDINATION IN OFFICE VISIT WITH PCP Patient has been identified by name and date of . PCP Assessment/Plan: Reviewed PCP plan with patient using Teach Back Discussed f/u with gastro for Gastric Emptying study. Pt continues to choke with eating or drinking even with following precautions Discussed re-scheduling appt with Arsen Adkins to sooner due to continued wheezing, SOB and productive cough Pt unsure of next appt with nephrology, Dr. Martin PCC Plan of Care: Patient concerns: Pt continues to have constant wheezing, productive cough and SOB, occasionally at rest. Pt continues to have intermittent chest pain, took 1 NTG w/ relief since PCC call Pt continues to choke even with ST precautions Discussed insomnia, pt will try OTC melatonin 10 mg. Patient goals: Pt will f/u with specialists as scheduled Pt will call squad if she takes 3 NTG, without waiting to see if 3rd tablet is helping. PCC Interventions: Re-scheduled appt with Arsen Adkins for tomorrow at 11:[address] Martin', pt's next appt is 01/24 Asked daughter about scheduling appt with GI, states they gave her a paper with a number to call to schedule gastric emptying study but when she called they said they thought it was already done so they were going to check and call her back but no one has called. Instructed to call PCC with the number on the paper and PCC will f/u on scheduling. Next Office Visit: 01/26/2018 Plan For Next Call: Next week Remi Kennedy RN January 06, 2018 Rmei Kennedy RN 01/06/2018 4:20 PM Addendum TC to Octavia mesa, informed pt is scheduled for f/u appt with [facility] to see Mandy Yanez CNP on 01/20 at 12:45 in [place] office, verbalized understanding by teach back. Also states pt has an US at [facility] scheduled on 01/[address] Martin. Also has ordered labwork for Dr. Martin; A1C, Vit D, Urine Protein/Creat Ratio, Urine Alb/Creat Ratio, CBC, U/A, Renal Function Panel, PTH, Calcium, Uric Acid. Remi Kennedy RN TC to [facility], discussed Gastric Emptying Study and Hosp F/U appt for pt. Scheduled F/U appt with Arsen Pringle CNP for 01/20 @ 12:45 in [place]. States they don't have the discharge summary and Dr. Patterson is on vacation so they are unsure about the Gastric Emptying Study. Arsen Yanez is out of the office, they will call PCC back tomorrow regarding study. Remi Kennedy RN TC from Octavia lopez, states the paper given her for pt states pt is to have Gastric Emptying Study, Dx: Dysphagia, Retained Food in Stomach on Eval. Phone Number Mandy Yanez, BACKHAUL DRIVER [phone], [facility]. ALLYSON Buck MD 01/06/2018 4:22 PM Signed Reviewed. Allergies As of Date: 01/06/2018 Noted Allergy Reaction BACTRIM (SULFAMETHOXAZOLE-TRIMETH*05/17/2017 14 - Other: See Comments Comments: My throat swells up. LATEX 05/17/2017 2 - Rash 9 - Itching Comments: Itching and welts. No wheezing or shortness of breath. PENICILLINS 07/14/2004 2 - Rash 9 - Itching Comments: Tolerated ceftriaxone during 11/2017 admission and cefepime during 12/2017 admission TETRACYCLINE 09/29/2010 2 - Rash 8 - GI Upset Comments: Emesis and diarrhea. 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] Prescriptions as of 01/06/2018 Sig: ISOSORBIDE MONONITRATE ER 60 * Take 1 tablet by mouth once d* PREDNISONE 10 MG TABLET Take 4 tabs daily x 3 days, t* PANTOPRAZOLE 40 MG TABLET,DEL* Take 1 tablet by mouth twice * X FUROSEMIDE 40 MG TABLET Take 60 mg (1.5 tablets) by m* CEFDINIR 300 MG CAPSULE Take 1 capsule by mouth twice* METRONIDAZOLE 500 MG TABLET Take 1 tablet by mouth three * NYSTATIN 100,000 UNIT/ML ORAL* Take 2 mL by mouth four times* INSULIN ASPART U-100 100 UNI* Inject 10 Units subcutaneousl* INSULIN GLARGINE (U-100) 100 * Inject 45 Units subcutaneousl* INSULIN GLARGINE (U-100) 100 * Inject 30 Units subcutaneousl* POTASSIUM CHLORIDE ER 10 MEQ * TAKE ONE TABLET BY MOUTH JANETH* APIXABAN 5 MG TABLET Take 5 mg by mouth twice janeth* SIMVASTATIN 40 MG TABLET Take 40 mg by mouth every mor* SPIRONOLACTONE 25 MG TABLET Take 1 tablet by mouth once d* IPRATROPIUM-ALBUTEROL 0.5 MG-* Inhale 3 mL as instructed leanne* DEXTROMETHORPHAN-GUAIFENESIN * Take 5-10 mL by mouth every 6* ALBUTEROL SULFATE CONCENTRATE* Inhale 0.5 mL as instructed o* NITROGLYCERIN 0.4 MG SUBLINGU* Dissolve 1 tablet under the t* GABAPENTIN 300 MG CAPSULE Take 2 capsules by mouth thre* Patient taking differently: Take 600 mg by mouth twice da* ALBUTEROL SULFATE HFA 90 MCG/* Inhale 2 Puffs as instructed * OXYGEN (HOME THERAPY) Inhale 2.5 L/min as instructe* Problem List As Of Date 01/06/2018 Noted Resolved HOCM (hypertrophic obstructive cardiomyopathy) * More... SVT (supraventricular tachycardia) [I47.1] More... Carotid artery disease (HCC) [I77.9] More... CAD (coronary artery disease) [I25.10] Essential hypertension [I10] More... Hyperlipidemia [E78.5] More... Pneumonia [J18.9] 10/27/2017 More... COPD (chronic obstructive pulmonary disease) [J* More... Sleep apnea [G47.30] More... HH (hiatus hernia) [K44.9] GERD (gastroesophageal reflux disease) [K21.9] More... Renal insufficiency [N28.9] More... Arthritis [M19.90] Numbness and tingling of right leg [R20.0, R20.* Depression [F32.9] Diabetes [E11.9] Atrial fibrillation (HCC) [I48.91] INVALID FOR* More... Diabetes mellitus due to underlying condition, *INVALID FOR* More... SUMMARY [V999.95] INVALID FOR* More... Dyspnea [R06.00] INVALID FOR* More... Heart failure, systolic, acute [I50.21] INVALID FOR* More... Obesity [E66.9] INVALID FOR* More... 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*INVALID FOR* Priority: B Elevated troponin [R74.8] INVALID FOR* COPD with acute exacerbation (HCC) [J44.1] INVALID FOR* Priority: D Acute on chronic respiratory failure with hypox*INVALID FOR* Priority: C HCAP (healthcare-associated pneumonia) [J18.9] INVALID FOR* Priority: A Encounter Status:Closed by REMI KENNEDY on 01/07/18 PROGRESS Observed: 01/05/2018 Status: COMPLETED Source: [place] 2:16 PM [facility] REPOSITORY HNO ID: [id number] Author: Jameson Adams) Koffi Service: (none) Author Type: Physician Type: Progress Notes Filed: 01/05/2018 2:18 PM Note Text: Med updates filed. PROGRESS Observed: 01/05/2018 Status: COMPLETED Source: [place] 2:06 PM [facility] [place] REPOSITORY HNO ID: [id number] Author: Remi Briseno) Brent Service: (none) Author Type: Registered Nurse Type: Progress Notes Filed: 01/05/2018 2:18 PM Note Text: Please file medication updates PROGRESS Observed: 01/04/2018 Status: COMPLETED Source: [place] 7:02 PM [facility] [place] REPOSITORY HNO ID: [id number] Author: Jameson Adams) Koffi Service: (none) Author Type: Physician Type: Progress Notes Filed: 01/04/2018 7:02 PM Note Text: Reviewed. PROGRESS Observed: 01/03/2018 Status: COMPLETED Source: [place] 4:56 PM [facility] [place] REPOSITORY HNO ID: [id number] Author: Remi Briseno) Brent Service: (none) Author Type: Registered Nurse Type: Progress Notes Filed: 01/04/2018 11:43 AM Note Text: TRANSITION CARE MANAGEMENT (TCM) INITIAL CONTACT Provider Action/FYI: weak and wobbly, ambulating with walker. Sleeping a lot some trouble swallowing and choking at times Aspiration Precautions Had EGD on 12/31 To schedule gastric emptying study SOB while at rest, wheezing is better. Wearing O2@ 2.5L Using Duoneb nebulizer q4h when at home Reports chest pain all around heart Took NTG x 2 with relief. Instructed if she has to take a 3rd NTG she is not to wait but call the squad, verbalized understanding. TC to daughter, informed PCC spoke to PCP and since Imdur is ER pt should only be taking 1 tab daily. Initial contact with patient post discharge, spoke to daughter, Octavia and patient. Patient identified by name and . SUMMARY: -Pt discharged from [place] on 12/31. -Follow up appointment on 01/[address] Hogan today. Seeing Dr. Rodriguez and Dr. Cardona on 01/18 -Medication review done with daughter. -Admitted for: Aspiration Pneumonia COPD Exacerbation Dysphagia CONCERNS: Pt weak and wobbly, ambulating with walker. Sleeping a lot Reports some trouble swallowing and choking at times Reports SOB while at rest, wheezing is better. Wearing O2@ 2.5L Using Duoneb nebulizer q4h when at home. Occasional productive cough, expectorating small amt of clear to benavides mucous. Reports chest pain all around heart Took NTG x 2 with relief. Instructed if she has to take a 3rd NTG she is not to wait but call the squad, verbalized understanding. Small amt of LE edema with taking Lasix 60 mg in AM and 40 mg at noon. Discussed with PCP, instructed to continue that dose until seen on 01/06 Dgt states pt has been taking Imdur ER 1 tablet twice daily DATE 01/03 01/02 01/01 Fasting 374 * 242 278 Before Lunch Before Supper [phone] *FINISHED LAST DOSE OF PREDNISONE THIS MORNING (3 DAY COURSE) Any low blood sugars during this period of reporting No Patient's diabetes medications as follows: insulin aspart U-100 (NOVOLOG FLEXPEN U-100 INSULIN) Inject 10 Units subcutaneously three times daily with meals. insulin glargine (LANTUS SOLOSTAR U-100 INSULIN) Inject 45 Units subcutaneously every morning. insulin glargine (LANTUS SOLOSTAR U-100 INSULIN) Inject 30 Units subcutaneously daily at bedtime. NEW MEDICATIONS: furosemide (LASIX) 40 mg Take 1 tablet by mouth once daily. Take 60 mg (1.5 tablets) by mouth every morning and 40 mg metroNIDAZOLE (FLAGYL) 500 mg Take 1 tablet by mouth three times daily for 6 days. nystatin (MYCOSTATIN) 100,000 unit/mL suspension Take 2 mL by mouth four times daily for 7 days. SWISH AND SWALLOW 2 ML 4 TIMES cefdinir (OMNICEF) 300 mg Take 1 capsule by mouth twice daily for 6 days. predniSONE (DELTASONE) 20 mg Take 1 tablet by mouth once daily for 3 days. insulin aspart U-100 (NOVOLOG FLEXPEN U-100 INSULIN) Inject 10 Units subcutaneously three times daily with meals. insulin glargine (LANTUS SOLOSTAR U-100 INSULIN) Inject 45 Units subcutaneously every morning. insulin glargine (LANTUS SOLOSTAR U-100 INSULIN) Inject 30 Units subcutaneously daily at bedtime. MEDS HELD/DISCONTINUED: None BRIEF HOSPITAL COURSE: Admitted on Dec 10 to and discharged home. Since than not been feeling much better. Difficult to take deep breath and still productive cough so got admitted and managed as follows: ? HCAP (healthcare-associated pneumonia), suspected aspiration PNA with episodes of choking food/liquids Feels slowly improving, c/o mild sob with activity which seems to be chronic in nature - started with IV Vanco and Aztreonam initially and changed to Cefepime later - blood cx- no growth, sputum culture- Few Normal respiratory mitra present , negative nasal MRSA - consulted ID due to recurrent admission/HCAP for antibiotic choice, changed to Meropenum IV - consulted speech therapy, suspicion of aspiration PNA - MBS done - poor esophageal emptying while in an upright posture; ?Retrograde flow is noted below the level of the pharyngoesophageal segment. no occurrence of laryngeal penetration /aspiration is noted at this time. - Esophagogram- Esophagus very dilated with no apparent primary peristaltic wave. ?Did appear to be some narrowing at the gastroesophageal junction. ?Correlation with endoscopy recommended. No aspiration was seen - consulted GI; s/p EGD today 12/31- 3cm hiatal hernia ?Schatzki's Ring ?Gastric retention of food, s/p dilation and biopsy, f//u results - plan for out pt gastric emptying studies per GI - aspiration precautions - antibiotics changed to po flagyl and Omnicef until 01/06/18 ?? Acute on chronic combined systolic and diastolic CHF (congestive heart failure) Acute diastolic heart failure (LVEF 50%) HOCM- Status post septal myomectomy at the time of CABG 2003 CAD Status post CABG ?2, 07/18/04, VU to LAD, SVG to PDA; PCI ?6 RCA, 2014 PCI ?3 2015 Status post myocardial perfusion imaging stress test 08/11/17 with possible prior apical infarct and no ischemia, EF 50%. ICD - most likely some fluid overload - Pro BNP 2600 - cont with fluid restriction - Last Echo 12/21/2017 LVEF 50% with Grade 3 diastolic dysfunction - St Rob AICD / PM - minimal rate at 60 - nml function on check today. Result on chart. - negative 4.8 liter so far - consulted Dr. Yeung. - continue spironolactone - continue statin - continue apixaban for anticoagulation - resumed aspirin due to multi-vessel PCI in the past - changed lasix to 40 mg po daily ?She can follow up as an outpatient with Dr. Cardona on discharge ??? Acute on chronic respiratory failure with hypoxia? - chronic home O2 with 2.5 l/min NC - supplement as needed - back to base line ?? COPD with acute exacerbation? - Given on dose in ER with Solumedrol - cont with treatment as above - wean steroids slowly ?? Atrial fibrillation - Not on any BB - Cont Eliquis - Rate controlled - on telemetry monitoring noticed to be low 40's in HR - PM/ICD checked, normal function ?? Diabetes mellitus due to underlying condition, uncontrolled, with stage 3 chronic kidney disease, with long-term current use of insulin On amaryl and sitagliptan Will start sliding scale option 1 coverage Follow accuchecks HgbA1c: >15 (Oct 2707/2018) Resumed insulin regimen lantus and humalog, continue ?? Coronary artery disease H/O of CABGx2 (DEBORAH-LAD, SVG-PDA ) in 2003 On simvastatin, ASA ?? Essential hypertension Controlled, monitor ?? GERD (gastroesophageal reflux disease) On nexium - protonix here ?? Hyperlipidemia On ?simvastatin LDL 61 ?? Sleep apnea Should wears CPAP at home But not used for years Last sleep study in possible 2008 ?? Obesity Diet/exercise/weightloss discussed with patient ??? She was feeling nauseous after EGD today, start to feel little better. Started diet, if she feels good then will discharge her home with [facility]. F/u with pcp, cardiology and GI as out pt. Pending biopsy from EGD. Remi Kennedy RN January 03, 2018 5:19 PM CNOV Observed: 01/03/2018 Status: COMPLETED Source: [place] 10:00 AM [facility] REPOSITORY Office Visit (VASSWS) BACALUZ ZHONG ([id number]) 1940 F Date Time Provider Department 01/03/18 10:00 AM MICHAEL HOGANS During your visit today, we recorded the following information about you: Pulse Blood pressure 66/minute 140/82 Michael Hogan DO 01/03/2018 10:50 AM Signed VASCULAR SURGERY INITIAL CONSULT SERVICE DATE: 01/03/2018 SERVICE TIME: 9:55 AM PRIMARY CARE PHYSICIAN: Jameson Kamara MD Consult requested for an opinion regarding the evaluation and treatment of the above. My final impression and recommendations will be communicated back to the requesting physician by way of the shared medical record or letter via US mail. CHIEF COMPLAINT/HISTORY OF PRESENT ILLNESS: Chief Complaint: PAD History of Present Illness: Luz Baca is a 77 year old female referred by Dr. Kamara for follow-up on PAD. Ms. Baca states she usually ambulates at home, however, cannot walk far distances due to constant leg pain while walking and neuropathy in both feet. States she would like to be able to walk more. She is currently on Eliquis/Zocor- reports she was on ASA, however, had too many issues with bleeding. She reports major cardiovascular history of ASHD/ CAD (numerous interventions), A-fib, Carotid Artery Disease, HTN, Hyperlipidemia, and DM. She is a former smoker (quit in 2003). PAST MEDICAL/SURGICAL/FAMILY/SOCIAL HISTORY PAST MEDICAL HISTORY Diagnosis Date - Arthritis - Atrial fibrillation (HCC) - CAD (coronary artery disease) stents x9, defibrillator, CABG. Seeing Dr. Cardona - Cardiac defibrillator in place - Cardiomegaly - Carotid artery disease ([facility]) left - CKD (chronic kidney disease), stage IV ([facility]) - COPD (chronic obstructive pulmonary disease) ([facility]) Dr. Cruz - Depression - Diabetes ([facility]) - Diabetic neuropathy ([facility]) - GERD (gastroesophageal reflux disease) - Gout - HH (hiatus hernia) - HOCM (hypertrophic obstructive cardiomyopathy) ([facility]) - HTN (hypertension) - Hyperlipidemia - Morbid obesity with BMI of 40.0-44.9, adult ([facility]) - Pacemaker - Pneumonia h/o pneumonia/bronchitis - Renal insufficiency 2003 post op - Sleep apnea 2011 not on CPAP, unable to tolerate mask 02/2017 - SVT (supraventricular tachycardia) ([facility]) NSVT and questionable VT in 2003 post op PAST SURGICAL HISTORY Procedure Laterality Date - PAST SURGICAL HISTORY OF 07/18/2004 Septal myectomy and CABG x2 (DEBORAH-LAD, SVG-PDA). - PAST SURGICAL HISTORY OF left breast nodule removed - PAST SURGICAL HISTORY OF hysterectomy - PAST SURGICAL HISTORY OF perianal abscess drained - PAST SURGICAL HISTORY OF cholecystectomy - PAST SURGICAL HISTORY OF skin lesions removed FAMILY HISTORY Problem Relation Age of Onset - Hypertension Mother living at age 93, HTN - Heart Failure Mother [place] - Cancer Father age 71, lung cancer SOCIAL HISTORYSocial History Marital status: Spouse name: Years of education: Number of children: Social History Main Topics Smoking status: Former Smoker Packs/day: 2.50 Years: 43.00 Types: Cigarettes Start date: 1961 Quit date: 07/07/2004 Smokeless status: Never Used Alcohol use: No Drug use: No Other Topics Concern Caffeine Concern Yes Comment:coffee 1 cup daily Special Diet No Comment:Regular Exercise No Comment:no unable, due to SOB x several months. MEDICATIONS/ALLERGIES Current Outpatient Prescriptions: cefdinir (OMNICEF) 300 mg capsule Take 1 capsule by mouth twice daily for 6 days. Disp: 12 capsule Rfl: 0 metroNIDAZOLE (FLAGYL) 500 mg tablet Take 1 tablet by mouth three times daily for 6 days. Disp: 21 tablet Rfl: 0 nystatin (MYCOSTATIN) 100,000 unit/mL suspension Take 2 mL by mouth four times daily for 7 days. SWISH AND SWALLOW 2 ML 4 TIMES PER DAY. Disp: 56 mL Rfl: 0 predniSONE (DELTASONE) 20 mg tablet Take 1 tablet by mouth once daily for 3 days. Disp: 3 tablet Rfl: 0 insulin aspart U-100 (NOVOLOG FLEXPEN U-100 INSULIN) 100 unit/mL inpn Inject 10 Units subcutaneously three times daily with meals. Disp: Rfl: insulin glargine (LANTUS SOLOSTAR U-100 INSULIN) 100 unit/mL (3 mL) inpn Inject 45 Units subcutaneously every morning. Disp: Rfl: insulin glargine (LANTUS SOLOSTAR U-100 INSULIN) 100 unit/mL (3 mL) inpn Inject 30 Units subcutaneously daily at bedtime. Disp: Rfl: furosemide (LASIX) 40 mg tablet Take 1 tablet by mouth once daily. Take 60 mg (1.5 tablets) by mouth every morning and 40 mg (1 tablet) every day around noon. Disp: 30 tablet Rfl: 0 gabapentin (NEURONTIN) 300 mg capsule Take 2 capsules by mouth twice daily for 90 days. Disp: 120 capsule Rfl: 2 potassium chloride ER (K-DUR, KLOR-CON) 10 mEq tablet TAKE ONE TABLET BY MOUTH DAILY WITH BREAKFAST Disp: 30 tablet Rfl: 5 colchicine (COLCRYS) 0.6 mg tablet Take 0.6 mg by mouth once daily. Disp: Rfl: apixaban (ELIQUIS) 5 mg tab(s) Take 5 mg by mouth twice daily. Disp: Rfl: isosorbide mononitrate ER (IMDUR) 30 mg 24 hr tablet Take 30 mg by mouth once daily. Disp: Rfl: pantoprazole DR (PROTONIX) 40 mg tablet Take 40 mg by mouth once daily. Disp: Rfl: simvastatin (ZOCOR) 40 mg tablet Take 40 mg by mouth every morning. Disp: Rfl: benzonatate (TESSALON PERLE) 100 mg capsule Take 100 mg by mouth three times daily as needed. Disp: Rfl: spironolactone (ALDACTONE) 25 mg tablet Take 1 tablet by mouth once daily. Disp: Rfl: ipratropium-albuterol (DUONEB) 0.5 mg-3 mg(2.5 mg base)/3 mL nebu Inhale 3 mL as instructed every 4 hours as needed. Disp: 180 Vial Rfl: 3 guaiFENesin-dextromethorphan (ROBITUSSIN DM) 100-10 mg/5 mL syrup Take 5-10 mL by mouth every 6 hours as needed for Cough. Disp: 118 mL Rfl: 0 albuterol (PROVENTIL) 5 mg/mL nebu Inhale 0.5 mL as instructed one time only for 1 dose. 1 DOSE NOW - BACK OFFICE. PLACE 0.5 ML PER DROPPER AND 2.5 ML OF NORMAL SALINE INTO RESERVOIR. Disp: 1 mL Rfl: 0 nitroglycerin sublingual (NITROQUICK) 0.4 mg SL tablet Dissolve 1 tablet under the tongue every 5 minutes as needed. Disp: 1 Bottle of 25 Rfl: 0 gabapentin (NEURONTIN) 300 mg capsule Take 2 capsules by mouth three times daily for 30 days. (Patient taking differently: Take 600 mg by mouth twice daily. ) Disp: Rfl: albuterol HFA (VENTOLIN HFA) 90 mcg/actuation inhaler Inhale 2 Puffs as instructed every 4 hours as needed. Disp: 1 Inhaler Rfl: 1 OXYGEN, HOME THERAPY, Inhale 2.5 L/min as instructed as directed. Disp: Rfl: No current facility-administered medications for this visit. ALLERGIES Allergen Reactions - Bactrim [Sulfametho* Other: See Comments ANDquot;My throat swells up.ANDquot; - Latex Rash, Itching Itching and welts. No wheezing or shortness of breath. - Penicillins Rash, Itching Tolerated ceftriaxone during 11/2017 admission and cefepime during 12/2017 admission - Tetracycline Rash, GI Upset Emesis and diarrhea. - Atorvastatin Rash - Codeine Other: See Comments Numbness - Dilaudid [Hydromorp* Mental Status Change - Meperidine - Pentazocine - Pioglitazone Unknown - Propoxyphene REVIEW OF SYSTEMS Constitutional: No weight loss, malaise or fevers. HEENT: Negative for frequent or significant headaches, No changes in hearing or vision, no nose bleeds or other nasal problems Respiratory: Positive for productive cough and shortness of breath limiting daily activity Cardiovascular: Positive for leg swelling and palpitations Gatrointestinal: Positive for diarrhea Genitourinary: No history of dysuria, frequency, or incontinence and No difficulty urination, nocturia ANDgt;1 times per night or hematuria Musculoskeletal: Negative for joint pain or swelling, back pain or muscle pain Endocrine: Negative for cold or heat intolerance, polyuria, polydipsia and goiter Hematology/Lymphatic: Positive for bruises easily Neurologic: No history or headaches, syncope, paralysis, seizures or tremors Integumentary: Negative for lesions, rash, and itching. PHYSICAL EXAM VITALS: There were no vitals taken for this visit. General: Alert and oriented, No acute distress Integumentary: Normal color, no rash, no lesions. HEENT: EOM, pupils equal, round and reactive., No carotid bruits Cardiovascular: Normal S1 ANDamp; S2, no rubs, murmurs or gallops. No JVD., Pulse regular. Lungs:Decreased at bases Abdomen: Soft, non-tender, no rigidity. Extremities: bilateral lower extremity, hyperpigmentation, dry skin Neurological: Normal cognition and motor skills. In wheelchair Vascular: non palpable distal pulses, no ulceration or tissue loss, cap refill 3 seconds ASSESSMENT Peripheral arterial disease Diagnostic tests reviewed for today's visit: Lower Extremity Arterial Physiology Study Bilateral/Complete Date: 07/28/2017 IMPRESSION ? RIGHT SIDE ? Resting right ankle brachial index: 0.85 Right toe brachial index: 0.48 ? Abnormal ankle brachial index at rest diagnostic of peripheral artery disease. ? Right ankle: Mild disease at rest. ? Right small vessel disease versus vasoconstriction. ? LEFT SIDE ? Resting left ankle brachial index: 0.64 Left toe brachial index: 0.50 ? Abnormal ankle brachial index at rest diagnostic of peripheral artery disease. ? Left ankle: Moderate disease at rest. ? Left small vessel disease versus vasoconstriction. PLAN/RECOMMENDATIONS Reviewed PVRs with patient Currently no rest pain or ulceration. She has significant pulmonary and coronary co-morbidities that limit day to day activities No limb threatening ischemia Discussed addition of antiplatelet agent however she stated she had a significant bleed and will not go back on aspirin Will get PVR and arterial duplex in 3 months She will call the office and follow up sooner if needed SIGNATURE: Michael Hogan DO PATIENT NAME: Luz Baca DATE: January 03, 2018 TIME: 9:55 AM Referring Provider: JAMESON KAMARA) [[id number]] Allergies As of Date: 01/03/2018 Noted Allergy Reaction BACTRIM (SULFAMETHOXAZOLE-TRIMETH*05/17/2017 14 - Other: See Comments Comments: My throat swells up. LATEX 05/17/2017 2 - Rash 9 - Itching Comments: Itching and welts. No wheezing or shortness of breath. PENICILLINS 07/14/2004 2 - Rash 9 - Itching Comments: Tolerated ceftriaxone during 11/2017 admission and cefepime during 12/2017 admission TETRACYCLINE 09/29/2010 2 - Rash 8 - GI Upset Comments: Emesis and diarrhea. ATORVASTATIN 05/17/2017 2 - Rash CODEINE 05/17/2017 14 - Other: See Comments Comments: Numbness DILAUDID (HYDROMORPHONE (BULK)) 05/17/2017 1 - Mental Status Change MEPERIDINE 07/14/2004 PENTAZOCINE 07/14/2004 PIOGLITAZONE 05/17/2017 16 - Unknown PROPOXYPHENE 07/14/2004 Date Reviewed: 01/03/2018 Reviewed by: Thiago Ruano RN - Fully Assessed Reason for Visit: New Patient Evaluation [154] Primary Visit Diagnosis:Peripheral arterial disease (HCC) [I73.9] Order(s):PVR [facility] [[id number]] Order #: [id number] FUTURE US LEG ARTERIAL [facility]IPH [facility] [[id number]] Order #: [id number] FUTURE Prescriptions as of 01/03/2018 Sig: CEFDINIR 300 MG CAPSULE Take 1 capsule by mouth twice* METRONIDAZOLE 500 MG TABLET Take 1 tablet by mouth three * NYSTATIN 100,000 UNIT/ML ORAL* Take 2 mL by mouth four times* PREDNISONE 20 MG TABLET Take 1 tablet by mouth once d* INSULIN ASPART U-100 100 UNI* Inject 10 Units subcutaneousl* INSULIN GLARGINE (U-100) 100 * Inject 45 Units subcutaneousl* INSULIN GLARGINE (U-100) 100 * Inject 30 Units subcutaneousl* FUROSEMIDE 40 MG TABLET Take 1 tablet by mouth once d* GABAPENTIN 300 MG CAPSULE Take 2 capsules by mouth twic* POTASSIUM CHLORIDE ER 10 MEQ * TAKE ONE TABLET BY MOUTH JANETH* COLCHICINE 0.6 MG TABLET Take 0.6 mg by mouth once carlos* APIXABAN 5 MG TABLET Take 5 mg by mouth twice janeth* ISOSORBIDE MONONITRATE ER 30 * Take 30 mg by mouth once janeth* PANTOPRAZOLE 40 MG TABLET,DEL* Take 40 mg by mouth once janeth* SIMVASTATIN 40 MG TABLET Take 40 mg by mouth every mor* BENZONATATE 100 MG CAPSULE Take 100 mg by mouth three ti* SPIRONOLACTONE 25 MG TABLET Take 1 tablet by mouth once d* IPRATROPIUM-ALBUTEROL 0.5 MG-* Inhale 3 mL as instructed leanne* DEXTROMETHORPHAN-GUAIFENESIN * Take 5-10 mL by mouth every 6* ALBUTEROL SULFATE CONCENTRATE* Inhale 0.5 mL as instructed o* NITROGLYCERIN 0.4 MG SUBLINGU* Dissolve 1 tablet under the t* GABAPENTIN 300 MG CAPSULE Take 2 capsules by mouth thre* Patient taking differently: Take 600 mg by mouth twice da* ALBUTEROL SULFATE HFA 90 MCG/* Inhale 2 Puffs as instructed * OXYGEN (HOME THERAPY) Inhale 2.5 L/min as instructe* Problem List As Of Date 01/03/2018 Noted Resolved HOCM (hypertrophic obstructive cardiomyopathy) * More... SVT (supraventricular tachycardia) [I47.1] More... Carotid artery disease (HCC) [I77.9] More... CAD (coronary artery disease) [I25.10] Essential hypertension [I10] More... Hyperlipidemia [E78.5] More... Pneumonia [J18.9] 10/27/2017 More... COPD (chronic obstructive pulmonary disease) [J* More... Sleep apnea [G47.30] More... HH (hiatus hernia) [K44.9] GERD (gastroesophageal reflux disease) [K21.9] More... Renal insufficiency [N28.9] More... Arthritis [M19.90] Numbness and tingling of right leg [R20.0, R20.* Depression [F32.9] Diabetes [E11.9] Atrial fibrillation (HCC) [I48.91] INVALID FOR* More... Diabetes mellitus due to underlying condition, *INVALID FOR* More... SUMMARY [V999.95] INVALID FOR* More... Dyspnea [R06.00] INVALID FOR* More... Heart failure, systolic, acute [I50.21] INVALID FOR* More... Obesity [E66.9] INVALID FOR* More... 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*INVALID FOR* Priority: B Elevated troponin [R74.8] INVALID FOR* COPD with acute exacerbation (HCC) [J44.1] INVALID FOR* Priority: D Acute on chronic respiratory failure with hypox*INVALID FOR* Priority: C HCAP (healthcare-associated pneumonia) [J18.9] INVALID FOR* Priority: A Encounter Status:Closed by MICHAEL HOGAN DO on 01/03/18 PROGRESS Observed: 01/03/2018 Status: COMPLETED Source: [place] 9:55 AM [facility] REPOSITORY HNO ID: [id number] Author: Michael Hogan Service: (none) Author Type: Physician Type: Progress Notes Filed: 01/03/2018 10:50 AM Note Text: VASCULAR SURGERY INITIAL CONSULT SERVICE DATE: 01/03/2018 SERVICE TIME: 9:55 AM PRIMARY CARE PHYSICIAN: Jameson Kamara MD Consult requested for an opinion regarding the evaluation and treatment of the above. My final impression and recommendations will be communicated back to the requesting physician by way of the shared medical record or letter via US mail. CHIEF COMPLAINT/HISTORY OF PRESENT ILLNESS: Chief Complaint: PAD History of Present Illness: Luz Baca is a 77 year old female referred by Dr. Kamara for follow-up on PAD. Ms. Baca states she usually ambulates at home, however, cannot walk far distances due to constant leg pain while walking and neuropathy in both feet. States she would like to be able to walk more. She is currently on Eliquis/Zocor- reports she was on ASA, however, had too many issues with bleeding. She reports major cardiovascular history of ASHD/ CAD (numerous interventions), A-fib, Carotid Artery Disease, HTN, Hyperlipidemia, and DM. She is a former smoker (quit in 2003). PAST MEDICAL/SURGICAL/FAMILY/SOCIAL HISTORY PAST MEDICAL HISTORY Diagnosis Date - Arthritis - Atrial fibrillation (HCC) - CAD (coronary artery disease) stents x9, defibrillator, CABG. Seeing Dr. Cardona - Cardiac defibrillator in place - Cardiomegaly - Carotid artery disease (HCC) left - CKD (chronic kidney disease), stage IV (HCC) - COPD (chronic obstructive pulmonary disease) (HCC) Dr. Cruz - Depression - Diabetes (HCC) - Diabetic neuropathy (HCC) - GERD (gastroesophageal reflux disease) - Gout - HH (hiatus hernia) - HOCM (hypertrophic obstructive cardiomyopathy) ([facility]) - HTN (hypertension) - Hyperlipidemia - Morbid obesity with BMI of 40.0-44.9, adult ([facility]) - Pacemaker - Pneumonia h/o pneumonia/bronchitis - Renal insufficiency 2003 post op - Sleep apnea 2011 not on CPAP, unable to tolerate mask 02/2017 - SVT (supraventricular tachycardia) ([facility]) NSVT and questionable VT in 2003 post op PAST SURGICAL HISTORY Procedure Laterality Date - PAST SURGICAL HISTORY OF 07/18/2004 Septal myectomy and CABG x2 (DEBORAH-LAD, SVG-PDA). - PAST SURGICAL HISTORY OF left breast nodule removed - PAST SURGICAL HISTORY OF hysterectomy - PAST SURGICAL HISTORY OF perianal abscess drained - PAST SURGICAL HISTORY OF cholecystectomy - PAST SURGICAL HISTORY OF skin lesions removed FAMILY HISTORY Problem Relation Age of Onset - Hypertension Mother living at age 93, HTN - Heart Failure Mother [place] - Cancer Father age 71, lung cancer SOCIAL HISTORYSocial History Marital status: Spouse name: Years of education: Number of children: Social History Main Topics Smoking status: Former Smoker Packs/day: 2.50 Years: 43.00 Types: Cigarettes Start date: 1961 Quit date: 07/07/2004 Smokeless status: Never Used Alcohol use: No Drug use: No Other Topics Concern Caffeine Concern Yes Comment:coffee 1 cup daily Special Diet No Comment:Regular Exercise No Comment:no unable, due to SOB x several months. MEDICATIONS/ALLERGIES Current Outpatient Prescriptions: cefdinir (OMNICEF) 300 mg capsule Take 1 capsule by mouth twice daily for 6 days. Disp: 12 capsule Rfl: 0 metroNIDAZOLE (FLAGYL) 500 mg tablet Take 1 tablet by mouth three times daily for 6 days. Disp: 21 tablet Rfl: 0 nystatin (MYCOSTATIN) 100,000 unit/mL suspension Take 2 mL by mouth four times daily for 7 days. SWISH AND SWALLOW 2 ML 4 TIMES PER DAY. Disp: 56 mL Rfl: 0 predniSONE (DELTASONE) 20 mg tablet Take 1 tablet by mouth once daily for 3 days. Disp: 3 tablet Rfl: 0 insulin aspart U-100 (NOVOLOG FLEXPEN U-100 INSULIN) 100 unit/mL inpn Inject 10 Units subcutaneously three times daily with meals. Disp: Rfl: insulin glargine (LANTUS SOLOSTAR U-100 INSULIN) 100 unit/mL (3 mL) inpn Inject 45 Units subcutaneously every morning. Disp: Rfl: insulin glargine (LANTUS SOLOSTAR U-100 INSULIN) 100 unit/mL (3 mL) inpn Inject 30 Units subcutaneously daily at bedtime. Disp: Rfl: furosemide (LASIX) 40 mg tablet Take 1 tablet by mouth once daily. Take 60 mg (1.5 tablets) by mouth every morning and 40 mg (1 tablet) every day around noon. Disp: 30 tablet Rfl: 0 gabapentin (NEURONTIN) 300 mg capsule Take 2 capsules by mouth twice daily for 90 days. Disp: 120 capsule Rfl: 2 potassium chloride ER (K-DUR, KLOR-CON) 10 mEq tablet TAKE ONE TABLET BY MOUTH DAILY WITH BREAKFAST Disp: 30 tablet Rfl: 5 colchicine (COLCRYS) 0.6 mg tablet Take 0.6 mg by mouth once daily. Disp: Rfl: apixaban (ELIQUIS) 5 mg tab(s) Take 5 mg by mouth twice daily. Disp: Rfl: isosorbide mononitrate ER (IMDUR) 30 mg 24 hr tablet Take 30 mg by mouth once daily. Disp: Rfl: pantoprazole DR (PROTONIX) 40 mg tablet Take 40 mg by mouth once daily. Disp: Rfl: simvastatin (ZOCOR) 40 mg tablet Take 40 mg by mouth every morning. Disp: Rfl: benzonatate (TESSALON PERLE) 100 mg capsule Take 100 mg by mouth three times daily as needed. Disp: Rfl: spironolactone (ALDACTONE) 25 mg tablet Take 1 tablet by mouth once daily. Disp: Rfl: ipratropium-albuterol (DUONEB) 0.5 mg-3 mg(2.5 mg base)/3 mL nebu Inhale 3 mL as instructed every 4 hours as needed. Disp: 180 Vial Rfl: 3 guaiFENesin-dextromethorphan (ROBITUSSIN DM) 100-10 mg/5 mL syrup Take 5-10 mL by mouth every 6 hours as needed for Cough. Disp: 118 mL Rfl: 0 albuterol (PROVENTIL) 5 mg/mL nebu Inhale 0.5 mL as instructed one time only for 1 dose. 1 DOSE NOW - BACK OFFICE. PLACE 0.5 ML PER DROPPER AND 2.5 ML OF NORMAL SALINE INTO RESERVOIR. Disp: 1 mL Rfl: 0 nitroglycerin sublingual (NITROQUICK) 0.4 mg SL tablet Dissolve 1 tablet under the tongue every 5 minutes as needed. Disp: 1 Bottle of 25 Rfl: 0 gabapentin (NEURONTIN) 300 mg capsule Take 2 capsules by mouth three times daily for 30 days. (Patient taking differently: Take 600 mg by mouth twice daily. ) Disp: Rfl: albuterol HFA (VENTOLIN HFA) 90 mcg/actuation inhaler Inhale 2 Puffs as instructed every 4 hours as needed. Disp: 1 Inhaler Rfl: 1 OXYGEN, HOME THERAPY, Inhale 2.5 L/min as instructed as directed. Disp: Rfl: No current facility-administered medications for this visit. ALLERGIES Allergen Reactions - Bactrim [Sulfametho* Other: See Comments My throat swells up. - Latex Rash, Itching Itching and welts. No wheezing or shortness of breath. - Penicillins Rash, Itching Tolerated ceftriaxone during 11/2017 admission and cefepime during 12/2017 admission - Tetracycline Rash, GI Upset Emesis and diarrhea. - Atorvastatin Rash - Codeine Other: See Comments Numbness - Dilaudid [Hydromorp* Mental Status Change - Meperidine - Pentazocine - Pioglitazone Unknown - Propoxyphene REVIEW OF SYSTEMS Constitutional: No weight loss, malaise or fevers. HEENT: Negative for frequent or significant headaches, No changes in hearing or vision, no nose bleeds or other nasal problems Respiratory: Positive for productive cough and shortness of breath limiting daily activity Cardiovascular: Positive for leg swelling and palpitations Gatrointestinal: Positive for diarrhea Genitourinary: No history of dysuria, frequency, or incontinence and No difficulty urination, nocturia >1 times per night or hematuria Musculoskeletal: Negative for joint pain or swelling, back pain or muscle pain Endocrine: Negative for cold or heat intolerance, polyuria, polydipsia and goiter Hematology/Lymphatic: Positive for bruises easily Neurologic: No history or headaches, syncope, paralysis, seizures or tremors Integumentary: Negative for lesions, rash, and itching. PHYSICAL EXAM VITALS: There were no vitals taken for this visit. General: Alert and oriented, No acute distress Integumentary: Normal color, no rash, no lesions. HEENT: EOM, pupils equal, round and reactive., No carotid bruits Cardiovascular: Normal S1 AND S2, no rubs, murmurs or gallops. No JVD., Pulse regular. Lungs:Decreased at bases Abdomen: Soft, non-tender, no rigidity. Extremities: bilateral lower extremity, hyperpigmentation, dry skin Neurological: Normal cognition and motor skills. In wheelchair Vascular: non palpable distal pulses, no ulceration or tissue loss, cap refill 3 seconds ASSESSMENT Peripheral arterial disease Diagnostic tests reviewed for today's visit: Lower Extremity Arterial Physiology Study Bilateral/Complete Date: 07/28/2017 IMPRESSION ? RIGHT SIDE ? Resting right ankle brachial index: 0.85 Right toe brachial index: 0.48 ? Abnormal ankle brachial index at rest diagnostic of peripheral artery disease. ? Right ankle: Mild disease at rest. ? Right small vessel disease versus vasoconstriction. ? LEFT SIDE ? Resting left ankle brachial index: 0.64 Left toe brachial index: 0.50 ? Abnormal ankle brachial index at rest diagnostic of peripheral artery disease. ? Left ankle: Moderate disease at rest. ? Left small vessel disease versus vasoconstriction. PLAN/RECOMMENDATIONS Reviewed PVRs with patient Currently no rest pain or ulceration. She has significant pulmonary and coronary co-morbidities that limit day to day activities No limb threatening ischemia Discussed addition of antiplatelet agent however she stated she had a significant bleed and will not go back on aspirin Will get PVR and arterial duplex in 3 months She will call the office and follow up sooner if needed SIGNATURE: Michael Hogan DO PATIENT NAME: Luz Condein DATE: January 03, 2018 TIME: 9:55 AM CNPTOUTREACH Observed: 01/03/2018 Status: COMPLETED Source: [place] 12:00 AM [facility] REPOSITORY Patient Outreach (FAMPWS) BACALUZ ZHONG ([id number]) 1940 F Date Time Provider Department 01/03/18 REMI KENNEDY) NAVINPWS During your visit today, we recorded the following information about you: Remi Kennedy, ALLYSON 01/04/2018 11:43 AM Addendum TRANSITION CARE MANAGEMENT (TCM) INITIAL CONTACT Provider Action/FYI: weak and ANDquot;wobbly,ANDquot; ambulating with walker. Sleeping a lot some trouble swallowing and ANDquot;choking at timesANDquot; Aspiration Precautions Had EGD on 12/31 To schedule gastric emptying study SOB while at rest, wheezing is better. Wearing O2@ 2.5L Using Duoneb nebulizer q4h when at home Reports chest pain ANDquot;all around heartANDquot; Took NTG x 2 with relief. Instructed if she has to take a 3rd NTG she is not to wait but call the squad, verbalized understanding. TC to daughter, informed PCC spoke to PCP and since Imdur is ER pt should only be taking 1 tab daily. Initial contact with patient post discharge, spoke to daughter, Octavia and patient. Patient identified by name and . SUMMARY: -Pt discharged from [place] on 12/31. -Follow up appointment on 01/[address] Hogan today. Seeing Dr. Rodriguez and Dr. Cardona on 01/18 -Medication review done with daughter. -Admitted for: Aspiration Pneumonia COPD Exacerbation Dysphagia CONCERNS: Pt weak and ANDquot;wobbly,ANDquot; ambulating with walker. Sleeping a lot Reports some trouble swallowing and ANDquot;choking at timesANDquot; Reports SOB while at rest, wheezing is better. Wearing O2@ 2.5L Using Duoneb nebulizer q4h when at home. Occasional productive cough, expectorating small amt of clear to benavides mucous. Reports chest pain ANDquot;all around heartANDquot; Took NTG x 2 with relief. Instructed if she has to take a 3rd NTG she is not to wait but call the squad, verbalized understanding. Small amt of LE edema with taking Lasix 60 mg in AM and 40 mg at noon. Discussed with PCP, instructed to continue that dose until seen on 01/06 Dgt states pt has been taking Imdur ER 1 tablet twice daily DATE 01/03 01/02 01/01 Fasting 374 * [phone] Before Lunch Before Supper [phone] *FINISHED LAST DOSE OF PREDNISONE THIS MORNING (3 DAY COURSE) Any low blood sugars during this period of reporting No Patient's diabetes medications as follows: insulin aspart U-100 (NOVOLOG FLEXPEN U-100 INSULIN) Inject 10 Units subcutaneously three times daily with meals. insulin glargine (LANTUS SOLOSTAR U-100 INSULIN) Inject 45 Units subcutaneously every morning. insulin glargine (LANTUS SOLOSTAR U-100 INSULIN) Inject 30 Units subcutaneously daily at bedtime. NEW MEDICATIONS: furosemide (LASIX) 40 mg Take 1 tablet by mouth once daily. Take 60 mg (1.5 tablets) by mouth every morning and 40 mg metroNIDAZOLE (FLAGYL) 500 mg Take 1 tablet by mouth three times daily for 6 days. nystatin (MYCOSTATIN) 100,000 unit/mL suspension Take 2 mL by mouth four times daily for 7 days. SWISH AND SWALLOW 2 ML 4 TIMES cefdinir (OMNICEF) 300 mg Take 1 capsule by mouth twice daily for 6 days. predniSONE (DELTASONE) 20 mg Take 1 tablet by mouth once daily for 3 days. insulin aspart U-100 (NOVOLOG FLEXPEN U-100 INSULIN) Inject 10 Units subcutaneously three times daily with meals. insulin glargine (LANTUS SOLOSTAR U-100 INSULIN) Inject 45 Units subcutaneously every morning. insulin glargine (LANTUS SOLOSTAR U-100 INSULIN) Inject 30 Units subcutaneously daily at bedtime. MEDS HELD/DISCONTINUED: None BRIEF HOSPITAL COURSE: Admitted on Dec 10 to and discharged home. Since than not been feeling much better. Difficult to take deep breath and still productive cough so got admitted and managed as follows: ? HCAP (healthcare-associated pneumonia), suspected aspiration PNA with episodes of choking food/liquids Feels slowly improving, c/o mild sob with activity which seems to be chronic in nature - started with IV Vanco and Aztreonam initially and changed to Cefepime later - blood cx- no growth, sputum culture- Few Normal respiratory mitra present , negative nasal MRSA - consulted ID due to recurrent admission/HCAP for antibiotic choice, changed to Meropenum IV - consulted speech therapy, suspicion of aspiration PNA - MBS done - poor esophageal emptying while in an upright posture; ?Retrograde flow is noted below the level of the pharyngoesophageal segment. no occurrence of laryngeal penetration /aspiration is noted at this time. - Esophagogram- Esophagus very dilated with no apparent primary peristaltic wave. ?Did appear to be some narrowing at the gastroesophageal junction. ?Correlation with endoscopy recommended. No aspiration was seen - consulted GI; s/p EGD today 12/31- 3cm hiatal hernia ?Schatzki's Ring ?Gastric retention of food, s/p dilation and biopsy, f//u results - plan for out pt gastric emptying studies per GI - aspiration precautions - antibiotics changed to po flagyl and Omnicef until 01/06/18 ?? Acute on chronic combined systolic and diastolic CHF (congestive heart failure) Acute diastolic heart failure (LVEF 50%) HOCM- Status post septal myomectomy at the time of CABG 2003 CAD Status post CABG ?2, 07/18/04, VU to LAD, SVG to PDA; PCI ?6 RCA, 2013 PCI ?3 2014 Status post myocardial perfusion imaging stress test 08/11/17 with possible prior apical infarct and no ischemia, EF 50%. ICD - most likely some fluid overload - Pro BNP 2600 - cont with fluid restriction - Last Echo 12/21/2017 LVEF 50% with Grade 3 diastolic dysfunction - St Rob AICD / PM - minimal rate at 60 - nml function on check today. Result on chart. - negative 4.8 liter so far - consulted Dr. Yeung. - continue spironolactone - continue statin - continue apixaban for anticoagulation - resumed aspirin due to multi-vessel PCI in the past - changed lasix to 40 mg po daily ?She can follow up as an outpatient with Dr. Cardona on discharge ??? Acute on chronic respiratory failure with hypoxia? - chronic home O2 with 2.5 l/min NC - supplement as needed - back to base line ?? COPD with acute exacerbation? - Given on dose in ER with Solumedrol - cont with treatment as above - wean steroids slowly ?? Atrial fibrillation - Not on any BB - Cont Eliquis - Rate controlled - on telemetry monitoring noticed to be low 40's in HR - PM/ICD checked, normal function ?? Diabetes mellitus due to underlying condition, uncontrolled, with stage 3 chronic kidney disease, with long-term current use of insulin On amaryl and sitagliptan Will start sliding scale option 1 coverage Follow accuchecks HgbA1c: ANDgt;15 (Oct 2707/2018) Resumed insulin regimen lantus and humalog, continue ?? Coronary artery disease H/O of CABGx2 (DEBORAH-LAD, SVG-PDA ) in 2003 On simvastatin, ASA ?? Essential hypertension Controlled, monitor ?? GERD (gastroesophageal reflux disease) On nexium - protonix here ?? Hyperlipidemia On ?simvastatin LDL 61 ?? Sleep apnea Should wears CPAP at home But not used for years Last sleep study in possible 2008 ?? Obesity Diet/exercise/weightloss discussed with patient ??? She was feeling nauseous after EGD today, start to feel little better. Started diet, if she feels good then will discharge her home with C. F/u with pcp, cardiology and GI as out pt. Pending biopsy from EGD. Remi Kennedy RN January 03, 2018 5:19 PM Jameson Kamara MD 01/04/2018 7:02 PM Signed Reviewed. Remi Kennedy RN 01/05/2018 2:18 PM Signed Please file medication updates Jameson Kamara MD 01/05/2018 2:18 PM Signed Med updates filed. Allergies As of Date: 01/03/2018 Noted Allergy Reaction BACTRIM (SULFAMETHOXAZOLE-TRIMETH*05/17/2017 14 - Other: See Comments Comments: My throat swells up. LATEX 05/17/2017 2 - Rash 9 - Itching Comments: Itching and welts. No wheezing or shortness of breath. PENICILLINS 07/14/2004 2 - Rash 9 - Itching Comments: Tolerated ceftriaxone during 11/2017 admission and cefepime during 12/2017 admission TETRACYCLINE 09/29/2010 2 - Rash 8 - GI Upset Comments: Emesis and diarrhea. 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 [facility] Follow Up [3610] Primary Visit Diagnosis:Acute on chronic combined systolic and diastolic CHF (congestive heart failure) ([facility]) [I50.43] Other Visit Diagnosis:Gastroesophageal reflux disease, esophagitis presence not specified [K21.9] Order(s):pantoprazole DR (PROTONIX) 40 mg tabletTake 1 tablet by mouth twice daily.Disp: Rfl: furosemide (LASIX) 40 mg tabletTake 60 mg (1.5 tablets) by mouth every morning and 40 mg (1 tablet) every day around noon.Disp: Rfl: Prescriptions as of 01/03/2018 Sig: CEFDINIR 300 MG CAPSULE Take 1 capsule by mouth twice* METRONIDAZOLE 500 MG TABLET Take 1 tablet by mouth three * NYSTATIN 100,000 UNIT/ML ORAL* Take 2 mL by mouth four times* INSULIN ASPART U-100 100 UNI* Inject 10 Units subcutaneousl* INSULIN GLARGINE (U-100) 100 * Inject 45 Units subcutaneousl* INSULIN GLARGINE (U-100) 100 * Inject 30 Units subcutaneousl* GABAPENTIN 300 MG CAPSULE Take 2 capsules by mouth twic* POTASSIUM CHLORIDE ER 10 MEQ * TAKE ONE TABLET BY MOUTH JANETH* APIXABAN 5 MG TABLET Take 5 mg by mouth twice janeth* SIMVASTATIN 40 MG TABLET Take 40 mg by mouth every mor* BENZONATATE 100 MG CAPSULE Take 100 mg by mouth three ti* SPIRONOLACTONE 25 MG TABLET Take 1 tablet by mouth once d* IPRATROPIUM-ALBUTEROL 0.5 MG-* Inhale 3 mL as instructed leanne* DEXTROMETHORPHAN-GUAIFENESIN * Take 5-10 mL by mouth every 6* NITROGLYCERIN 0.4 MG SUBLINGU* Dissolve 1 tablet under the t* ALBUTEROL SULFATE HFA 90 MCG/* Inhale 2 Puffs as instructed * OXYGEN (HOME THERAPY) Inhale 2.5 L/min as instructe* PANTOPRAZOLE 40 MG TABLET,DEL* Take 1 tablet by mouth twice * FUROSEMIDE 40 MG TABLET Take 60 mg (1.5 tablets) by m* PREDNISONE 20 MG TABLET Take 1 tablet by mouth once d* COLCHICINE 0.6 MG TABLET Take 0.6 mg by mouth once carlos* ISOSORBIDE MONONITRATE ER 30 * Take 30 mg by mouth once janeth* ALBUTEROL SULFATE CONCENTRATE* Inhale 0.5 mL as instructed o* GABAPENTIN 300 MG CAPSULE Take 2 capsules by mouth thre* Patient taking differently: Take 600 mg by mouth twice da* Problem List As Of Date 01/03/2018 Noted Resolved HOCM (hypertrophic obstructive cardiomyopathy) * More... SVT (supraventricular tachycardia) [I47.1] More... Carotid artery disease (HCC) [I77.9] More... CAD (coronary artery disease) [I25.10] Essential hypertension [I10] More... Hyperlipidemia [E78.5] More... Pneumonia [J18.9] 10/27/2017 More... COPD (chronic obstructive pulmonary disease) [J* More... Sleep apnea [G47.30] More... HH (hiatus hernia) [K44.9] GERD (gastroesophageal reflux disease) [K21.9] More... Renal insufficiency [N28.9] More... Arthritis [M19.90] Numbness and tingling of right leg [R20.0, R20.* Depression [F32.9] Diabetes [E11.9] Atrial fibrillation (HCC) [I48.91] INVALID FOR* More... Diabetes mellitus due to underlying condition, *INVALID FOR* More... SUMMARY [V999.95] INVALID FOR* More... Dyspnea [R06.00] INVALID FOR* More... Heart failure, systolic, acute [I50.21] INVALID FOR* More... Obesity [E66.9] INVALID FOR* More... 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*INVALID FOR* Priority: B Elevated troponin [R74.8] INVALID FOR* COPD with acute exacerbation (HCC) [J44.1] INVALID FOR* Priority: D Acute on chronic respiratory failure with hypox*INVALID FOR* Priority: C HCAP (healthcare-associated pneumonia) [J18.9] INVALID FOR* Priority: A Prescriptions ordered this encounter Disp Refills Start End PANTOPRAZOLE 40 MG TABLET,DELAYED RE* 01/05/2018 Class: Med Update Route: ORAL Sig: Take 1 tablet by mouth twice daily. FUROSEMIDE 40 MG TABLET 01/05/2018 Class: Med Update Sig: Take 60 mg (1.5 tablets) by mouth every morning and 40 mg (1 tablet) every day around noon. Medications Discontinued During This Encounter pantoprazole DR (PROTONIX) 40 mg tab* 01/05/2018 Class: Historical Med Route: ORAL Sig: Take 40 mg by mouth once daily. Disc: Reason for discontinue is not on file. furosemide (LASIX) 40 mg tablet 30 t* 0 12/31/2017 01/05/2018 Class: Print RX Route: ORAL Sig: Take 1 tablet by mouth once daily. Take 60 mg (1.5 tablets) by mouth every morning and 40 mg (1 tablet) every day around noon. Disc: Reason for discontinue is not on file. Encounter Status:Closed by REMI KENNEDY on 01/05/18 PLAN OF CARE Observed: 12/31/2017 Status: COMPLETED Source: [place] 4:45 PM CLINIC OTHER CAMPUS REPOSITORY O ID: [id number] Author: Maciel Oliveros (Pharmacist) Service: Pharmacy Author Type: Pharmacist Type: Plan of Care Filed: 12/31/2017 5:14 PM Note Text: DISCHARGE MEDICATION REVIEW BY PHARMACY Patient Name: Luz Baca Account #: Data Unavailable Admission Date: 12/23/2017 Date of Contact: December 31, 2017 Time of Contact: 5:14 PM Medication list was reviewed by a Pharmacist for drug interactions or drug related problems:Yes MACIEL OLIVEROS PHARMACIST December 31, 2017 5:14 PM Medication List START taking these medications cefdinir 300 mg capsule Commonly known as: OMNICEF Take 1 capsule by mouth twice daily for 6 days. metroNIDAZOLE 500 mg tablet Commonly known as: FLAGYL Take 1 tablet by mouth three times daily for 6 days. CHANGE how you take these medications furosemide 40 mg tablet Commonly known as: LASIX Take 1 tablet by mouth once daily. Take 60 mg (1.5 tablets) by mouth every morning and 40 mg (1 tablet) every day around noon. What changed: - how much to take - how to take this - when to take this * gabapentin 300 mg capsule Commonly known as: NEURONTIN Take 2 capsules by mouth three times daily for 30 days. What changed: when to take this * gabapentin 300 mg capsule Commonly known as: NEURONTIN Take 2 capsules by mouth twice daily for 90 days. What changed: Another medication with the same name was changed. Make sure you understand how and when to take each. insulin aspart U-100 100 unit/mL Inpn Commonly known as: NovoLOG Flexpen U-100 Insulin Inject 10 Units subcutaneously three times daily with meals. What changed: how much to take * insulin glargine 100 unit/mL (3 mL) Inpn Commonly known as: LANTUS SOLOSTAR U-100 INSULIN Inject 45 Units subcutaneously every morning. What changed: how much to take * insulin glargine 100 unit/mL (3 mL) Inpn Commonly known as: LANTUS SOLOSTAR U-100 INSULIN Inject 30 Units subcutaneously daily at bedtime. What changed: how much to take potassium chloride ER 10 mEq tablet Commonly known as: K-DURELLEN-CON TAKE ONE TABLET BY MOUTH DAILY WITH BREAKFAST What changed: See the new instructions. predniSONE 20 mg tablet Commonly known as: DELTASONE Take 1 tablet by mouth once daily for 3 days. Start taking on: 01/01/2018 What changed: - medication strength - how much to take - how to take this - when to take this - additional instructions * Notice: This list has 4 medication(s) that are the same as other medications prescribed for you. Read the directions carefully, and ask your doctor or other care provider to review them with you. CONTINUE taking these medications * albuterol HFA 90 mcg/actuation inhaler Commonly known as: VENTOLIN HFA Inhale 2 Puffs as instructed every 4 hours as needed. * albuterol 5 mg/mL Nebu Commonly known as: PROVENTIL Inhale 0.5 mL as instructed one time only for 1 dose. 1 DOSE NOW - BACK OFFICE. PLACE 0.5 ML PER DROPPER AND 2.5 ML OF NORMAL SALINE INTO RESERVOIR. benzonatate 100 mg capsule Commonly known as: TESSALON PERLE COLCRYS 0.6 mg tablet Generic drug: colchicine ELIQUIS 5 mg tab(s) Generic drug: apixaban guaiFENesin-dextromethorphan 100-10 mg/5 mL syrup Commonly known as: ROBITUSSIN DM Take 5-10 mL by mouth every 6 hours as needed for Cough. ipratropium-albuterol 0.5 mg-3 mg(2.5 mg base)/3 mL Nebu Commonly known as: DUONEB Inhale 3 mL as instructed every 4 hours as needed. isosorbide mononitrate ER 30 mg 24 hr tablet Commonly known as: IMDUR nitroglycerin sublingual 0.4 mg SL tablet Commonly known as: NITROQUICK Dissolve 1 tablet under the tongue every 5 minutes as needed. nystatin 100,000 unit/mL suspension Commonly known as: MYCOSTATIN Take 2 mL by mouth four times daily for 7 days. SWISH AND SWALLOW 2 ML 4 TIMES PER DAY. OXYGEN (HOME THERAPY) pantoprazole DR 40 mg tablet Commonly known as: PROTONIX simvastatin 40 mg tablet Commonly known as: ZOCOR spironolactone 25 mg tablet Commonly known as: ALDACTONE Take 1 tablet by mouth once daily. * Notice: This list has 2 medication(s) that are the same as other medications prescribed for you. Read the directions carefully, and ask your doctor or other care provider to review them with you. Where to Get Your Medications These medications were sent to [facility] [address] [place] [address] - [address] [place] [address] - [phone] [place] [address] - cefdinir 300 mg capsule - gabapentin 300 mg capsule - metroNIDAZOLE 500 mg tablet - potassium chloride ER 10 mEq tablet Information about where to get these medications is not yet available ! Ask your nurse or doctor about these medications - furosemide 40 mg tablet - insulin aspart U-100 100 unit/mL Inpn - insulin glargine 100 unit/mL (3 mL) Inpn - insulin glargine 100 unit/mL (3 mL) Inpn - nystatin 100,000 unit/mL suspension - predniSONE 20 mg tablet ANES POST Observed: 12/31/2017 Status: COMPLETED Source: [place] 4:45 PM CLINIC OTHER CAMPUS REPOSITORY HNO ID: [id number] Author: Toñito River Service: Anesthesiology Author Type: Anesthesiologist Type: Anesthesia PostOp Filed: 12/31/2017 6:29 PM Note Text: POST ANESTHESIA EVALUATION NOTE SERVICE DATE: 12/31/2017 SERVICE TIME: 1030 : 1941 Vitals: 12/31/17 0750 12/31/17 0845 12/31/17 0907 12/31/17 1135 Temp: 36.7 ?C (98.1 ?F) 36.7 ?C (98.1 ?F) 36.4 ?C (97.5 ?F) 36.3 ?C (97.3 ?F) 12/31/17 0830 12/31/17 0845 12/31/17 0907 12/31/17 1135 BP: 143/65 115/58 133/57 149/66 12/31/17 0845 12/31/17 0907 12/31/17 1135 12/31/17 1531 Pulse: 60 68 (!) 58 66 12/31/17 0845 12/31/17 0907 12/31/17 1135 12/31/17 1531 Resp: 18 20 20 18 12/31/17 0845 12/31/17 0907 12/31/17 1135 12/31/17 1531 SpO2: 97% 97% 96% 96% Validated Vital Signs: Yes POST ANES STATUS: No apparent anesthetic complications. The patient is appropriately hydrated with stable respiratory and cardiovascular status. Patient has safe and adequate airway control. The patient has appropriate pain relief and no significant post operative nausea or vomiting. The patient has achieved baseline mental status. Further assessment by Anesthesia Service: None Other Remarks: SIGNATURE: Toñito River MD PATIENT NAME: Luz Baca DATE: December 31, 2017 TIME: 6:29 PM PAGER/CONTACT #: [phone] THERAPY NT Observed: 12/31/2017 Status: COMPLETED Source: [place] 4:16 PM CLINIC OTHER CAMPUS REPOSITORY HNO ID: [id number] Author: Keren OsheaFourdrinier Wire Weaver) Pema Service: Speech/Swallow Author Type: Speech Language Pathologist Type: Therapy (PT/OT/Speech/Resp) Filed: 12/31/2017 4:17 PM Note Text: [address] [place] [address] [facility] SPEECH THERAPY MISSED VISIT NOTE SERVICE DATE: 12/31/2017 SERVICE TIME: 14:15 Attempted patient therapy visit, but was unable for the following reason(s): Nursing consult indicated Pt NPO at this time secondary to test/procedure. Will attempt again as schedule permits SIGNATURE: Keren Mcadams CCC-MILITARY NURSE PATIENT NAME: Luz Baca DATE: December 31, 2017 TIME: 4:16 PM PAGER/CONTACT #: [phone] CASE MANAGEM Observed: 12/31/2017 Status: COMPLETED Source: [place] 3:18 PM CLINIC OTHER CAMPUS REPOSITORY HNO ID: [id number] Author: Radha Bar (Sw) Service: Care Management Author Type: Board Catcher Type: Care Mgt Progress Note Filed: 12/31/2017 3:24 PM Note Text: CARE MANAGEMENT PROGRESS NOTE SERVICE DATE: 12/31/2017 SERVICE TIME: 3:15pm LOS: 8 days IM letter given to patient and daughter on 12/31/2017. SIGNATURE: TAMELA Olson PATIENT NAME: Luz Condein DATE: December 31, 2017 TIME: 3:18 PM PAGER/CONTACT #: [phone] CASE MANAGEM Observed: 12/31/2017 Status: COMPLETED Source: [place] 3:00 PM [facility] OTHER [place] REPOSITORY HNO ID: [id number] Author: Radha Bar (Sw) Service: Care Management Author Type: Board Catcher Type: Care Mgt Progress Note Filed: 12/31/2017 3:09 PM Note Text: CARE MANAGEMENT DISCHARGE NOTE SERVICE DATE: 12/31/2017 SERVICE TIME: 3:00PM LOS: 8 days Admission Date: 12/23/2017 DISCHARGE ARRANGEMENT (list agency and phone number) Home care Provider: [facility] CAREGIVER ASSESSMENT: Caregiver is ready, willing and able to meet the patient's needs as recommended by the inter-professional team? Yes Patient's transition needs and plan for meeting these needs: Daughter is caregiver and resuming [facility] Does the patient have an acute stroke diagnosis, or has the patient had a stroke during this admission? No HANDOFF COMMUNICATION: Summary of Care sent to PCP, Dr. Kamara and [facility] TRANSPORTATION ARRANGEMENTS: Family ADDITIONAL CONTACT RESOURCES: SIGNATURE: TAMELA Olson PATIENT NAME: Luz Condein DATE: December 31, 2017 TIME: 3:01 PM PAGER/CONTACT #: [phone] CNDS Observed: 12/31/2017 Status: COMPLETED Source: [place] 2:51 PM [facility]INIC OTHER [place] REPOSITORY HNO ID: [id number] Author: Peyman Guerrero Service: Hospital Medicine Author Type: Physician Type: Discharge Summaries Filed: 12/31/2017 3:12 PM Note Text: My Hospital Stay and Summary This is a summary of your hospital stay. Please read it carefully and share it with your family and healthcare providers. Date of Admission: 12/23/2017 Date of Discharge: 12/31/17 Where I Will be Going after Discharge: Home with Home Health Care My Condition at Discharge: Stable My Doctors and Medical Team: ? My Main Hospital Doctor: Peyman Guerrero ? My Primary Care Physician (Family Doctor): Jameson Kamara MD ? 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 ID consult The Reason I was in the Hospital/Main Diagnosis: Aspiration PNA, copd exacerbation, dysphagia Summary of What Happened When in the Hospital: Hospital course: This is a 77 year old female who presents with hx of AFIB, cardiomegaly, PM, CHF, CAD, CKD, COPD, home O2 2.5 l/m, GERD, morbid obesity, pneumonia, who was admitted on Dec 10 to and discharged home. Since than not been feeling much better. Difficult to take deep breath and still productive cough so got admitted and managed as follows: HCAP (healthcare-associated pneumonia), suspected aspiration PNA with episodes of choking food/liquids Feels slowly improving, c/o mild sob with activity which seems to be chronic in nature - started with IV Vanco and Aztreonam initially and changed to Cefepime later - blood cx- no growth, sputum culture- Few Normal respiratory mitra present , negative nasal MRSA - consulted ID due to recurrent admission/HCAP for antibiotic choice, changed to Meropenum IV - consulted speech therapy, suspicion of aspiration PNA - MBS done - poor esophageal emptying while in an upright posture; ?Retrograde flow is noted below the level of the pharyngoesophageal segment. no occurrence of laryngeal penetration /aspiration is noted at this time. - Esophagogram- Esophagus very dilated with no apparent primary peristaltic wave. ?Did appear to be some narrowing at the gastroesophageal junction. ?Correlation with endoscopy recommended. No aspiration was seen - consulted GI; s/p EGD today 12/31- 3cm hiatal hernia ?Schatzki's Ring ?Gastric retention of food, s/p dilation and biopsy, f//u results - plan for out pt gastric emptying studies per GI - aspiration precautions - antibiotics changed to po flagyl and Omnicef until 01/06/18 ? Acute on chronic combined systolic and diastolic CHF (congestive heart failure) Acute diastolic heart failure (LVEF 50%) HOCM- Status post septal myomectomy at the time of CABG 2003 CAD Status post CABG ?2, 07/18/04, VU to LAD, SVG to PDA; PCI ?6 RCA, 2013 PCI ?3 2015 Status post myocardial perfusion imaging stress test 08/11/17 with possible prior apical infarct and no ischemia, EF 50%. ICD - most likely some fluid overload - Pro BNP 2600 - cont with fluid restriction - Last Echo 12/21/2017 LVEF 50% with Grade 3 diastolic dysfunction - St Rob AICD / PM - minimal rate at 60 - nml function on check today. Result on chart. - negative 4.8 liter so far - consulted Dr. Yeung. - continue spironolactone - continue statin - continue apixaban for anticoagulation - resumed aspirin due to multi-vessel PCI in the past - changed lasix to 40 mg po daily ?? She can follow up as an outpatient with Dr. Cardona on discharge ? Acute on chronic respiratory failure with hypoxia? - chronic home O2 with 2.5 l/min NC - supplement as needed - back to base line ?? COPD with acute exacerbation? - Given on dose in ER with Solumedrol - cont with treatment as above - wean steroids slowly ?? Atrial fibrillation - Not on any BB - Cont Eliquis - Rate controlled - on telemetry monitoring noticed to be low 40's in HR - PM/ICD checked, normal function ?? Diabetes mellitus due to underlying condition, uncontrolled, with stage 3 chronic kidney disease, with long-term current use of insulin On amaryl and sitagliptan Will start sliding scale option 1 coverage Follow accuchecks HgbA1c: >15 (Oct 2707/2018) Resumed insulin regimen lantus and humalog, continue ?? Coronary artery disease H/O of CABGx2 (DEBORAH-LAD, SVG-PDA ) in 2003 On simvastatin, ASA ?? Essential hypertension Controlled, monitor ?? GERD (gastroesophageal reflux disease) On nexium - protonix here ?? Hyperlipidemia On simvastatin LDL 61 ?? Sleep apnea Should wears CPAP at home But not used for years Last sleep study in possible 2008 ?? Obesity Diet/exercise/weightloss discussed with patient ?? She was feeling nauseous after EGD today, start to feel little better. Started diet, if she feels good then will discharge her home with [facility]. F/u with pcp, cardiology and GI as out pt. Pending biopsy from EGD. 12/31/17 0830 12/31/17 0845 12/31/17 0907 12/31/17 1135 BP: 143/65 115/58 133/57 149/66 Pulse: 74 60 68 (!) 58 Resp: Temp: 36.7 ?C (98.1 ?F) 36.4 ?C (97.5 ?F) 36.3 ?C (97.3 ?F) TempSrc: Temporal Artery Oral Oral SpO2: 99% 97% 97% 96% Weight: Height: PHYSICAL EXAMINATION General: Alert and oriented, no distress, pleasant and cooperative. Heart: Regular, normal S1 and S2, no murmurs, rubs, or gallops Lungs: Clear to auscultation bilaterally Abdomen: Benign Extremities: Feet/ankles without edema, posterior tibial pulses full and symmetrical CBC, Coags, BMP, Mg, Phos Recent Labs 12/31/17 0348 12/30/17 0345 12/29/17 0312 WBC 9.50 10.16 9.15 HB 12.5 11.9 12.0 HCT 40.5 39.3 38.7 PLT 110* 104* 104* NA 139 142 140 K 5.1 5.4* 5.1 CHLOR 96* 101 99 CO2 37* 34* 36* BUN 64* 70* 65* CREAT 1.39* 1.46* 1.52* GLUC 336* 203* 145* CA 8.5 8.8 8.3* MG 2.6* 2.6* 2.5* Other Problem(s)/Diagnosis: Principal Problem: HCAP (healthcare-associated pneumonia) Active Problems: Acute on chronic combined systolic and diastolic CHF (congestive heart failure) (HCC) Acute on chronic respiratory failure with hypoxia (HCC) COPD with acute exacerbation (HCC) Carotid artery disease (HCC) Essential hypertension Hyperlipidemia Sleep apnea GERD (gastroesophageal reflux disease) Atrial fibrillation (HCC) Diabetes 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 * Operations Performed While in the Hospital: None Important Tests/Procedures: EGD Instructions for My Care at Home or Healthcare Facility These instructions explain what you or your student career development specialist need to do to continue your care at home or at another healthcare facility ? Please go over these instructions with your nurse and student career development specialist. ? If you are not sure about something, please ask. Additional Health Information I Need to Know After I Leave the Hospital:See attached sheet for additional instructions. Please follow the printed instructions given to you by your doctor or nurse. Pain Management: No pain management is needed Wound Care/Surgical Site Care: None Supplies or Equipment I Need: None Diet (What I Can Eat): Resume pre-hospital diet Activity and Exercise: (When I can drive, return to work) Resume pre-hospital activity Please follow the printed instructions given to you by your doctor/nurse. Follow-Up Appointment Reminders: (A list of any scheduled appointments is at the end of this document) Call during normal business hours for your follow up appointment(s) Test Results Not Available at this Time: Biopsy results Electronically Signed: Peyman Guerrero MD CONSULT PROG Observed: 12/31/2017 Status: COMPLETED Source: [place] 2:09 PM [facility] OTHER CAMPUS REPOSITORY O ID: [id number] Author: Max Reynolds Service: Infectious Disease Author Type: Physician Type: Consult Progress Note Filed: 12/31/2017 2:10 PM Note Text: INFECTIOUS DISEASE PROGRESS NOTE Patient Name: Luz Baca Date: 12/31/2017 ASSESSMENT: 1. Bibasilar pneumonia, concern is for aspiration and gram-negative component due to her recent hospitalization. MRSA nasal swab is negative. 2. Leukocytosis, likely due to #1. 3. Acute on chronic respiratory failure, which is improved likely due to #1. 4. Severe COPD. 5. Multiple antibiotic allergies. 6. Thrombocytopenia, which appears to be chronic. 7. Chronic kidney disease stage 4 8. Suspected pharyngeal and esophageal phase dysphagia + esophageal dilation PLAN: D/c meropenem omnicef and flagyl po till 01/06/18 OK for d/c from ID standpoint. Rx sent d/w primary service. INTERVAL HISTORY: ROS done with pt/RN and negative unless stated. No fevers chills nausea vomiting diarrhea. S/p EGD - rev report. MEDICATIONS: reviewed. Current hospital medications: ondansetron (PF) 4 mg injection (ZOFRAN) 4 mg INTRAVENOUS q 6 H PRN nystatin 5 mL oral liquid (MYCOSTATIN) 5 mL ORAL QID furosemide 40 mg tab(s) (LASIX) 40 mg ORAL DAILY meropenem 1 g in D5W 100 mL MB+ (MERREM) 1 g INTRAVENOUS q 12 H predniSONE 20 mg tab(s) (DELTASONE) 20 mg ORAL DAILY dextrose 40 % 15 g 15 g ORAL PRN glucagon 1 mg injection (GLUCAGEN) 1 mg INTRAMUSCULAR PRN dextrose 50% in water 25 mL syringe 12.5 g INTRAVENOUS PRN simvastatin 40 mg tab(s) (ZOCOR) 40 mg ORAL AT BEDTIME gabapentin 600 mg cap(s) (NEURONTIN) 600 mg ORAL BID ipratropium-albuterol 3 mL nebulizer solution (DUONEB) 3 mL INHALATION q 4 H while awake colchicine 0.6 mg tab(s) 0.6 mg ORAL DAILY insulin lispro 10 Units injection (rapid acting) (HumaLOG) 10 Units SUBCUTANEOUS TID w MEALS insulin glargine 45 Units injection (long acting) (LANTUS) 45 Units SUBCUTANEOUS DAILY (8 AM) insulin glargine 30 Units injection (long acting) (LANTUS) 30 Units SUBCUTANEOUS AT BEDTIME guaiFENesin-dextromethorphan 100-10 mg/5 mL 5-10 mL oral liquid (ROBITUSSIN DM) 5-10 mL ORAL q 6 H PRN potassium chloride ER 10 mEq tab(s) (K-DUR, KLOR-CON) 10 mEq ORAL DAILY spironolactone 25 mg tab(s) (ALDACTONE) 25 mg ORAL DAILY pantoprazole DR 40 mg tab(s) (PROTONIX) 40 mg ORAL DAILY (6 AM) isosorbide mononitrate ER 30 mg tab(s) (IMDUR) 30 mg ORAL DAILY nitroglycerin sublingual 0.4 mg tab(s) (NITROQUICK) 0.4 mg SUBLINGUAL q 5 MIN PRN 0.9% NaCl 3-5 mL 3-5 mL INTRAVENOUS q 12 H benzonatate 100 mg cap(s) (TESSALON PERLE) 100 mg ORAL TID insulin lispro injection (rapid acting) (HumaLOG) SUBCUTANEOUS w MEALS insulin lispro injection (rapid acting) (HumaLOG) SUBCUTANEOUS AT BEDTIME PHYSICAL EXAM: Vital signs: BP 149/66 Pulse (!) 58 Temp 36.3 ?C (97.3 ?F) (Oral) Resp 20 Ht 172.7 cm (5' 8) Wt 105.5 kg (232 lb 9.4 oz) SpO2 96% BMI 35.36 kg/m2 General: alert, oriented, NAD Lungs: bilaterally mostly cta Heart: regular rate and rhythm Abdomen: soft, non tender, non distended, BS+ Extremities: no swollen joints Skin: no rash IV sites - wnl Lab data: reviewed Recent Labs 12/31/17 0348 12/30/17 0345 12/29/17 0312 WBC 9.50 10.16 9.15 HB 12.5 11.9 12.0 PLT 110* 104* 104* NA 139 142 140 K 5.1 5.4* 5.1 CO2 37* 34* 36* BUN 64* 70* 65* CREAT 1.39* 1.46* 1.52* Microbiology data: reviewed Imaging data: reviewed Esophagogram - Esophagus very dilated with no apparent primary peristaltic wave. ?Did appear to be some narrowing at the gastroesophageal junction. ? Correlation with endoscopy recommended Max Reynolds MD Pager: PROGRESS Observed: 12/31/2017 Status: COMPLETED Source: [place] 12:45 PM CLINIC OTHER CAMPUS REPOSITORY HNO ID: [id number] Author: Peyman Guerrero Service: Hospital Medicine Author Type: Physician Type: Progress Notes Filed: 12/31/2017 12:48 PM Note Text: HOSPITAL MEDICINE PROGRESS NOTE Name: Luz Baca SERVICE DATE: 12/31/2017 SERVICE TIME: 12:45 PM LOCATION / [place] [facility] [id number] Hospital Medicine/Primary Attending: Peyman guerrero MD NIGHT COVERAGE BETWEEN 5.30P-7.30A Page [id number] ASSESSMENT AND PLAN HCAP (healthcare-associated pneumonia), suspected aspiration PNA with episodes of choking food/liquids Feels slowly improving, c/o mild sob with activity which seems to be chronic in nature - started with IV Vanco and Aztreonam initially and changed to Cefepime later - blood cx- no growth, sputum culture- Few Normal respiratory mitra present , negative nasal MRSA - consulted ID due to recurrent admission/HCAP for antibiotic choice, changed to Meropenum IV - consulted speech therapy, suspicion of aspiration PNA - MBS done - poor esophageal emptying while in an upright posture; Retrograde flow is noted below the level of the pharyngoesophageal segment. no occurrence of laryngeal penetration /aspiration is noted at this time. - Esophagogram- Esophagus very dilated with no apparent primary peristaltic wave. ?Did appear to be some narrowing at the gastroesophageal junction. ?Correlation with endoscopy recommended. No aspiration was seen - consulted GI; s/p EGD today 12/31- 3cm hiatal hernia Schatzki's Ring Gastric retention of food, s/p dilation and biopsy, f//u results - plan for gastric emptying studies today per GI - continue duoneb q4hr + prn - Mucinex BID - aspiration precautions - Nursing Recommendations: Reinforce use of swallowing strategies;Utilize bed in chair position - Diet Recommendations: Regular Consistency;Thin liquids Acute on chronic combined systolic and diastolic CHF (congestive heart failure) Acute diastolic heart failure (LVEF 50%) HOCM- Status post septal myomectomy at the time of CABG 2003 CAD Status post CABG ?2, 07/18/04, VU to LAD, SVG to PDA; PCI ?6 RCA, 2013 PCI ?3 2014 Status post myocardial perfusion imaging stress test 08/11/17 with possible prior apical infarct and no ischemia, EF 50%. ICD - most likely some fluid overload - Pro BNP 2600 - cont with fluid restriction - Last Echo 12/21/2017 LVEF 50% with Grade 3 diastolic dysfunction - St Rob AICD / PM - minimal rate at 60 - nml function on check today. Result on chart. - negative 4.8 liter so far - consulted Dr. Yeung. - continue spironolactone - continue statin - continue apixaban for anticoagulation - resumed aspirin due to multi-vessel PCI in the past - changed lasix to 40 mg po daily - continue current management plan, monitor for fluid overload, I/O ? She can follow up as an outpatient with Dr. Cardona on discharge ? Acute on chronic respiratory failure with hypoxia? - chronic home O2 with 2.5 l/min NC - supplement as needed - back to base line ? COPD with acute exacerbation? - Given on dose in ER with Solumedrol - cont with treatment as above - wean steroids slowly ? Atrial fibrillation - Not on any BB - Cont Eliquis - Rate controlled - on telemetry monitoring noticed to be low 40's in HR - PM/ICD checked, normal function ?? Diabetes mellitus due to underlying condition, uncontrolled, with stage 3 chronic kidney disease, with long-term current use of insulin On amaryl and sitagliptan Will start sliding scale option 1 coverage Follow accuchecks HgbA1c: >15 (Oct 2707/2018) ?? Coronary artery disease H/O of CABGx2 (DEBORAH-LAD, SVG-PDA ) in 2003 On simvastatin, ASA ?? Essential hypertension Controlled, monitor ?? GERD (gastroesophageal reflux disease) On nexium - protonix here ?? Hyperlipidemia On simvastatin LDL 61 ?? Sleep apnea Should wears CPAP at home But not used for years Last sleep study in possible 2008 ?? Obesity Diet/exercise/weightloss discussed with patient ? SUBJECTIVE INTERVAL HPI: S/p EGD today, 3cm hiatal hernia, dilation of Schatzki's Ring Feels nauseous now, vomited and had a BM once, no fever, chills, cp nor palpitations. Stable vitals No overnight issues Plan for gastric emptying studies per GI today MEDICATIONS: Reviewed Current Facility-Administered Medications: ondansetron (PF) 4 mg injection (ZOFRAN) 4 mg INTRAVENOUS q 6 H PRN Peyman Cesar 4 mg at 12/31/17 1114 nystatin 5 mL oral liquid (MYCOSTATIN) 5 mL ORAL QID Peyman Cesar 5 mL at 12/31/17 1011 furosemide 40 mg tab(s) (LASIX) 40 mg ORAL DAILY Peyman Cesar 40 mg at 12/31/17 1013 meropenem 1 g in D5W 100 mL MB+ (MERREM) 1 g INTRAVENOUS q 12 H Max Rodolfo 1 g at 12/31/17 1011 predniSONE 20 mg tab(s) (DELTASONE) 20 mg ORAL DAILY Radha Adams) Thuestad 20 mg at 12/31/17 1013 dextrose 40 % 15 g 15 g ORAL PRN Leandro Kauffman MD Or glucagon 1 mg injection (GLUCAGEN) 1 mg INTRAMUSCULAR PRN Leandro Kauffman MD Or dextrose 50% in water 25 mL syringe 12.5 g INTRAVENOUS PRN Leandro Kauffman MD simvastatin 40 mg tab(s) (ZOCOR) 40 mg ORAL AT BEDTIME Radha Adams) Thuestad 40 mg at 12/30/17 2118 gabapentin 600 mg cap(s) (NEURONTIN) 600 mg ORAL BID Wind Gapebonie Adams) Thuestad 600 mg at 12/31/17 1013 ipratropium-albuterol 3 mL nebulizer solution (DUONEB) 3 mL INHALATION q 4 H while awake Radha Adams) Thuestad 3 mL at 12/31/17 0559 colchicine 0.6 mg tab(s) 0.6 mg ORAL DAILY Radha Adams) Thuestad 0.6 mg at 12/31/17 1013 insulin lispro 10 Units injection (rapid acting) (HumaLOG) 10 Units SUBCUTANEOUS TID w MEALS Radha Adams) Thuestad 10 Units at 12/31/17 1014 insulin glargine 45 Units injection (long acting) (LANTUS) 45 Units SUBCUTANEOUS DAILY (8 AM) Radha Adams) Thuestad 45 Units at 12/31/17 1014 insulin glargine 30 Units injection (long acting) (LANTUS) 30 Units SUBCUTANEOUS AT BEDTIME Radha Adams) Thuestad 30 Units at 12/30/17 2115 guaiFENesin-dextromethorphan 100-10 mg/5 mL 5-10 mL oral liquid (ROBITUSSIN DM) 5-10 mL ORAL q 6 H PRN Radha Adams) Thuestad 10 mL at 12/30/17 0523 potassium chloride ER 10 mEq tab(s) (K-DUR, KLOR-CON) 10 mEq ORAL DAILY Radha Adams) Thuestad 10 mEq at 12/31/17 1012 spironolactone 25 mg tab(s) (ALDACTONE) 25 mg ORAL DAILY Radha Adams) Thuestad 25 mg at 12/31/[address] 40 mg tab(s) (PROTONIX) 40 mg ORAL DAILY (6 AM) Radha Adams) Thuestad 40 mg at 12/30/17 0523 isosorbide mononitrate ER 30 mg tab(s) (IMDUR) 30 mg ORAL DAILY Radha Adams) Thuestad 30 mg at 12/31/17 1013 nitroglycerin sublingual 0.4 mg tab(s) (NITROQUICK) 0.4 mg SUBLINGUAL q 5 MIN PRN Radha Adams) Thuestad 0.9% NaCl 3-5 mL 3-5 mL INTRAVENOUS q 12 H Radhaebonie Adams) Thuestad 3 mL at 12/31/17 1014 benzonatate 100 mg cap(s) (TESSALON PERLE) 100 mg ORAL TID Hareesh Singam 100 mg at 12/31/17 1013 insulin lispro injection (rapid acting) (HumaLOG) SUBCUTANEOUS w MEALS Caroline (Audio Production Engineer) Garcia 8 Units at 12/30/17 0746 insulin lispro injection (rapid acting) (HumaLOG) SUBCUTANEOUS AT BEDTIME Caroline (Audio Production Engineer) Garcia 4 Units at 12/30/17 2117 OBJECTIVE PHYSICAL EXAM: BP 149/66 Pulse 58 Temp (Src) 97.3 (Oral) Resp 20 Ht 5' 8 (1.73m) Wt 232 lb 9.4 oz (105.5kg) SpO2 96% BMI 35.37 kg/(m2). GENERAL: Alert, no distress, cooperative, obese SKIN: Skin color, texture, turgor normal. No rashes or lesions. EYES: PERRLA, EOMI OROPHARYNX: Lips, mucosa, and tongue normal. Teeth and gums normal. Oropharynx normal. NECK: No jugulovenous distention, No carotid bruits, Carotid pulse normal contour, Supple LUNGS: Lungs clear to auscultation, Good diaphragmatic excursion CARDIAC: Normal S1 and S2; no rubs, murmurs, or gallops ABDOMEN: Abdomen soft, non-tender, BS normal, No masses or organomegaly EXTREMITIES: Extremities normal, no deformities, edema, clubbing or skin discoloration. Good capillary refill., No ulcers NEURO: Reflexes normal and symmetric. Sensation grossly intact, Cranial nerves II-XII intact PULSES: 2+ radial, 2+ carotid DATA: Diagnostic tests reviewed for today's visit: CBC, Coags, BMP, Mg, Phos Recent Labs 12/31/17 0348 12/30/17 0345 12/29/17 0312 WBC 9.50 10.16 9.15 HB 12.5 11.9 12.0 HCT 40.5 39.3 38.7 PLT 110* 104* 104* NA 139 142 140 K 5.1 5.4* 5.1 CHLOR 96* 101 99 CO2 37* 34* 36* BUN 64* 70* 65* CREAT 1.39* 1.46* 1.52* GLUC 336* 203* 145* CA 8.5 8.8 8.3* MG 2.6* 2.6* 2.5* VTE Prophylaxis: Patient is already anti-coagulated. Disposition: Home with [facility] PT, possibly tomorrow Plan of care discussed with: Patient, daughter and RN SIGNATURE: Peyman guerrero MD DATE: December 31, 2017 TIME: 12:48 PM NURSING PROG Observed: 12/31/2017 Status: COMPLETED Source: [place] 9:43 AM [facility] REPOSITORY HNO ID: [id number] Author: Sylwia Briseno) ALLYSON Vora Service: (none) Author Type: Registered Nurse Type: Nursing Progress Note Filed: 12/31/2017 11:23 AM Note Text: Nursing Progress Note Patient Name: Luz Baca Patient Location: [place] [id number] Daily Note: 0907 Patient returned to floor, stable condition, c/o sore throat, drinks given, family at bedside. 1105 Patient c/o nausea, page out to hospitalist 1120 Patient had one emesis and one incontinent bowel movement, GI MISSILEMAN aware. This note was completed by: Sylwia Vora RN CASE MANAGEM Observed: 12/31/2017 Status: COMPLETED Source: [place] 9:37 AM [facility] REPOSITORY HNO ID: [id number] Author: Radha Bar (Sw) Service: Care Management Author Type: Board Catcher Type: Care Mgt Progress Note Filed: 12/31/2017 9:44 AM Note Text: CARE MANAGEMENT PROGRESS NOTE SERVICE DATE: 12/31/2017 SERVICE TIME: 9:30am LOS: 8 days [employer] Providing patient with hospital bed. Per patient's daughter, bed will be delivered to patient's home today. SIGNATURE: TAMELA Olson PATIENT NAME: Luz Baca DATE: December 31, 2017 TIME: 9:37 AM PAGER/CONTACT #: [phone] SURGICAL PATHOLOGY Observed: 12/31/2017 Status: C Source: [place] 9:30 AM [facility] OTHER CAMPUS REPOSITORY ADDENDUM PRESENT Specimen originated from [facility] Specimen #: [id number] Submitting Physician: Mara Hernandez M.D. FINAL DIAGNOSIS 1. Stomach, biopsy (A) - Chronic active gastritis with H. pylori-like organisms and focal intestinal metaplasia; negative for dysplasia; see comment. 2. Esophagogastric junction, biopsy (B) - Mild reactive squamous mucosa and inflamed gastric mucosa; negative for intestinal metaplasia and dysplasia. 3. Esophagus, biopsy at 30 cm (C) - Squamous mucosa with active inflammation; see comment. SS/rw 01/04/2018 COMMENT 1. Given the background of chronic gastritis, a Helicobacter pylori immunostain was performed on block A and is positive for Helicobacter pylori organisms. 3. PAS for fungus special stain is pending; the result will be issued in an addendum. Laboratory Developed Test (LDT) Disclaimer: Positive and negative controls stain appropriately. Performance characteristics of immunohistochemical, immunofluorescent and chromogenic in-situ hybridization tests have been determined by [facility]'s Fadi Bankssich Pathology and Laboratory Medicine [place] ([facility] in a manner consistent with CLIA requirements. One or more of these tests have not been cleared or approved by the FDA. [facility] is regulated under CLIA as qualified to perform high-complexity testing. These tests are used for clinical purposes. They should not be regarded as investigational or for research. Ceicl Moody M.D. (Electronic Signature) SPECIMEN SUBMITTED A: GASTRIC, BIOPSY B: ESOPHAGOGASTRIC JUNCTION, BIOPSY C: ESOPHAGUS, BIOPSY 30 CM ADDENDUM Date Ordered: 01/05/2018 Date Reported: 01/05/2018 C. Rare fungal elements compatible with Pastor species are identified; oral contamination cannot be ruled out. SS/rw 01/05/2018 Addendum Pathologist: Cecil Moody M.D. Electronic Signature CLINICAL DATA R/O H PYLORI, R/O BARRON'S, R/O ESOPHAGITIS AND PASTOR, LMP: NA GROSS DESCRIPTION A. Received in alcoholic formalin are four pieces of benavides, soft tissue aggregating to 1.7 x 0.2 x 0.1 cm. Totally submitted in one cassette. B. Received in alcoholic formalin are four pieces of benavides, soft tissue aggregating to 1.0 x 0.2 x 0.1 cm. Totally submitted in one cassette. C. Received in alcoholic formalin are two pieces of benavides, soft tissue aggregating to 0.5 x 0.2 x 0.1 cm. Totally submitted in one cassette. Gross examination performed at [facility], [address] [place] [address] 12/31/2017 6:02:32 PM Date of Report: 01/04/2018 Date of Procedure: 12/31/2017 Date of Receipt: 12/31/2017 Submitted by: Mara Hernandez M.D. Location: 3 V Diagnostic interpretation performed at [facility], [address] [place] [address]. Performed By: #### PATHS #### [employer] [address] [place] [address] [phone] NURSING PROG Observed: 12/31/2017 Status: COMPLETED Source: [place] 8:01 AM [facility] REPOSITORY HNO ID: [id number] Author: Aleisha OsheaRn) ALLYSON Eaton Service: Nursing Author Type: Registered Nurse Type: Nursing Progress Note Filed: 12/31/2017 8:50 AM Note Text: Nursing Progress Note Patient Name: Luz Baca Patient Location: [place] [facility] 0750 Pt received in PACU on cart from Endo. CR monitor applied and strip obtained. No oral bleeding or drainage noted. Abd soft. Pt able to swallow own secretions. This note was completed by: Aleisha Eaton RN 0850 Report called to Sylwia VALADEZ on 3S-Obs. Pt transferred to floor on cart accomp by staff in stable cond. BRIEF OP NOT Observed: 12/31/2017 Status: COMPLETED Source: [place] 7:43 AM [facility] REPOSITORY HNO ID: [id number] Author: Mara Hernandez Service: (none) Author Type: Physician Type: Brief Op Note Filed: 12/31/2017 7:45 AM Note Text: BRIEF OPERATIVE / PROCEDURE NOTE LOG ID: [id number] Surgery/Procedure Date: 12/31/2017 Incision/Procedure Start Time: 7:30 AM Incision Close/Procedure End Time: 7:37 AM Surgeon(s)/Proceduralist(s) and Transport Driver(s): Surgeon(s) and Role: * Mara Hernandez - Primary No Additional Staff Procedure(s): EGD w bx and dilatation Anesthesia: Monitored Anesthesia Care Findings: 3cm hiatal hernia Schatzki's Ring Gastric retention of food Estimated Blood Loss: 0 ml Specimens: gas/eso Complications: None Pre-Op/Pre-Procedure Diagnosis: dysphagia Post-Op/Post-Procedure Diagnosis: Gastric retention of food, Hiatal hernia, Irregular GE Junction, Schatki's ring and rule out pastor esophagitis SIGNATURE: Mara Hernandez MD PATIENT NAME: uLz Baca DATE: December 31, 2017 TIME: 7:44 AM PAGER/CONTACT #: [phone] ANES PREOP Observed: 12/31/2017 Status: COMPLETED Source: [place] 7:04 AM CLINIC OTHER CAMPUS REPOSITORY O ID: [id number] Author: [place] Service: Anesthesiology Author Type: Anesthesiologist Type: Anesthesia PreOp Filed: 12/31/2017 7:04 AM Note Text: ANESTHESIOLOGY DAY OF SURGERY NOTE SERVICE DATE: 12/31/2017 SERVICE TIME: 7:04 AM : 1940 Procedure(s) (LRB): EGD (N/A) Surgeon(s): Mara Hernandez Estimated body mass index is 35.36 kg/(m2) as calculated from the following: Height as of this encounter: 172.7 cm (5' 8). Weight as of this encounter: 105.5 kg (232 lb 9.4 oz). Most recent hematocrit and potassium results: Hematocrit 40.5 12/31/2017 Potassium 5.1 12/31/2017 ANES DOS/PREOP NOTE: Vitals: 12/30/17 2330 12/31/17 0446 12/31/17 0559 12/31/17 0608 BP: 141/68 136/61 Pulse: 63 60 64 62 Resp: Temp: 36.3 ?C (97.3 ?F) 36.4 ?C (97.5 ?F) TempSrc: Oral Oral SpO2: 100% 99% 100% Weight: Height: ACTIVE PROBLEM LIST Hocm (Hypertrophic Obstructive Cardiomyopathy) ([facility]) Svt (Supraventricular Tachycardia) ([facility]) Carotid artery disease (HCC) Cad (Coronary Artery Disease) Essential Hypertension Hyperlipidemia Copd (Chronic Obstructive Pulmonary Disease) ([facility]) Sleep Apnea Hh (Hiatus Hernia) Gerd (Gastroesophageal Reflux Disease) Renal Insufficiency Arthritis Numbness and Tingling of Right Leg Depression Diabetes (Hcc) Atrial Fibrillation (Hcc) Diabetes Mellitus Due to Underlying Condition, Uncontrolled, With Stage 3 Chronic Kidney Disease, With Long-Term Current Use of Insulin (Hcc) Summary Dyspnea Heart Failure, Systolic, Acute (Hcc) Obesity Gout Ckd (Chronic Kidney Disease) Stage 3, Gfr 30-59 Ml/Min Pacemaker Ckd (Chronic Kidney Disease), Stage IV ([facility]) Acute Exacerbation of Chf (Congestive Heart Failure) ([facility]) Acute On Chronic Combined Systolic and Diastolic Chf (Congestive Heart Failure) ([facility]) Elevated Troponin Copd With Acute Exacerbation (Hcc) Acute On Chronic Respiratory Failure With Hypoxia ([facility]) Hcap (Healthcare-Associated Pneumonia) PAST MEDICAL HISTORY Diagnosis Date - Arthritis - Atrial fibrillation (HCC) - CAD (coronary artery disease) stents x9, defibrillator, CABG. Seeing Dr. Cardona - Cardiac defibrillator in place - Cardiomegaly - Carotid artery disease ([facility]) left - CKD (chronic kidney disease), stage IV (HCC) - COPD (chronic obstructive pulmonary disease) ([facility]) Dr. Cruz - Depression - Diabetes ([facility]) - Diabetic neuropathy ([facility]) - GERD (gastroesophageal reflux disease) - Gout - HH (hiatus hernia) - HOCM (hypertrophic obstructive cardiomyopathy) ([facility]) - HTN (hypertension) - Hyperlipidemia - Morbid obesity with BMI of 40.0-44.9, adult ([facility]) - Pacemaker - Pneumonia h/o pneumonia/bronchitis - Renal insufficiency 2003 post op - Sleep apnea 2011 not on CPAP, unable to tolerate mask 02/2017 - SVT (supraventricular tachycardia) ([facility]) NSVT and questionable VT in 2003 post op PAST SURGICAL HISTORY Procedure Laterality Date - PAST SURGICAL HISTORY OF 07/18/2004 Septal myectomy and CABG x2 (DEBORAH-LAD, SVG-PDA). - PAST SURGICAL HISTORY OF left breast nodule removed - PAST SURGICAL HISTORY OF hysterectomy - PAST SURGICAL HISTORY OF perianal abscess drained - PAST SURGICAL HISTORY OF cholecystectomy - PAST SURGICAL HISTORY OF skin lesions removed FAMILY HISTORY Problem Relation Age of Onset - Hypertension Mother living at age 93, HTN - Heart Failure Mother [place] - Cancer Father age 71, lung cancer Social History: Social History Substance Use Topics - Smoking status: Former Smoker Packs/day: 2.50 Years: 43.00 Types: Cigarettes Start date: 1961 Quit date: 07/07/2004 - Smokeless tobacco: Never Used - Alcohol use No No current facility-administered medications on file prior to encounter. Current Outpatient Prescriptions on File Prior to Encounter: spironolactone (ALDACTONE) 25 mg tablet Take 1 tablet by mouth once daily. ipratropium-albuterol (DUONEB) 0.5 mg-3 mg(2.5 mg base)/3 mL nebu Inhale 3 mL as instructed every 4 hours as needed. guaiFENesin-dextromethorphan (ROBITUSSIN DM) 100-10 mg/5 mL syrup Take 5-10 mL by mouth every 6 hours as needed for Cough. nitroglycerin sublingual (NITROQUICK) 0.4 mg SL tablet Dissolve 1 tablet under the tongue every 5 minutes as needed. albuterol HFA (VENTOLIN HFA) 90 mcg/actuation inhaler Inhale 2 Puffs as instructed every 4 hours as needed. OXYGEN, HOME THERAPY, Inhale 2.5 L/min as instructed as directed. albuterol (PROVENTIL) 5 mg/mL nebu Inhale 0.5 mL as instructed one time only for 1 dose. 1 DOSE NOW - BACK OFFICE. PLACE 0.5 ML PER DROPPER AND 2.5 ML OF NORMAL SALINE INTO RESERVOIR. gabapentin (NEURONTIN) 300 mg capsule Take 2 capsules by mouth three times daily for 30 days. (Patient taking differently: Take 600 mg by mouth twice daily. ) Current Facility-Administered Medications: nystatin 5 mL oral liquid (MYCOSTATIN) 5 mL ORAL QID Peyman Cesar 5 mL at 12/30/172117 furosemide 40 mg tab(s) (LASIX) 40 mg ORAL DAILY Peyman Cesar 40 mg at 12/30/1748 meropenem 1 g in D5W 100 mL MB+ (MERREM) 1 g INTRAVENOUS q 12 H Max Rodolfo 1 g at 12/30/172114 predniSONE 20 mg tab(s) (DELTASONE) 20 mg ORAL DAILY Radha Adams) Thuestad 20 mg at 12/30/17 07 dextrose 40 % 15 g 15 g ORAL PRN Leandro Kauffman MD Or glucagon 1 mg injection (GLUCAGEN) 1 mg INTRAMUSCULAR PRN Leandro Kauffman MD Or dextrose 50% in water 25 mL syringe 12.5 g INTRAVENOUS PRN Leandro Kauffman MD simvastatin 40 mg tab(s) (ZOCOR) 40 mg ORAL AT BEDTIME Radha Adams) Thuestad 40 mg at 12/30/172117 gabapentin 600 mg cap(s) (NEURONTIN) 600 mg ORAL BID Radhaebonie Adams) Thuestad 600 mg at 12/30/172117 ipratropium-albuterol 3 mL nebulizer solution (DUONEB) 3 mL INHALATION q 4 H while awake Radha Adams) Thuestad 3 mL at 12/31/17 0559 colchicine 0.6 mg tab(s) 0.6 mg ORAL DAILY [place] Ebonie Adams) Thuestad 0.6 mg at 12/30/17 0746 insulin lispro 10 Units injection (rapid acting) (HumaLOG) 10 Units SUBCUTANEOUS TID w MEALS Radha Adams) Thuestad 10 Units at 12/30/17 1659 insulin glargine 45 Units injection (long acting) (LANTUS) 45 Units SUBCUTANEOUS DAILY (8 AM) Wind [place]ie Adams) Thuestad 45 Units at 12/30/17 0745 insulin glargine 30 Units injection (long acting) (LANTUS) 30 Units SUBCUTANEOUS AT BEDTIME Radha Adams) Thuestad 30 Units at 12/30/17 211 guaiFENesin-dextromethorphan 100-10 mg/5 mL 5-10 mL oral liquid (ROBITUSSIN DM) 5-10 mL ORAL q 6 H PRN Radhaebonie Adams) Thuestad 10 mL at 12/30/17 0523 potassium chloride ER 10 mEq tab(s) (K-DUR, KLOR-CON) 10 mEq ORAL DAILY Radha Ebonie Adams) Thuestad 10 mEq at 12/30/17 0747 spironolactone 25 mg tab(s) (ALDACTONE) 25 mg ORAL DAILY [place] Ebonie Adams) Thuestad 25 mg at 12/30/[address] 40 mg tab(s) (PROTONIX) 40 mg ORAL DAILY (6 AM) Wind [place]ie Adams) Thuestad 40 mg at 12/30/17 0523 isosorbide mononitrate ER 30 mg tab(s) (IMDUR) 30 mg ORAL DAILY [place] Ebonie Adams) Thuestad 30 mg at 12/30/17 0746 nitroglycerin sublingual 0.4 mg tab(s) (NITROQUICK) 0.4 mg SUBLINGUAL q 5 MIN PRN Radha Adams) Thuestad 0.9% NaCl 3-5 mL 3-5 mL INTRAVENOUS q 12 H Radha Loomis Md Thuestad 5 mL at 03/15/18 2130 benzonatate 100 mg cap(s) (TESSALON PERLE) 100 mg ORAL TID Hareesh Singam 100 mg at 12/30/172117 insulin lispro injection (rapid acting) (HumaLOG) SUBCUTANEOUS w MEALS Caroline (Audio Production Engineer) Garcia 8 Units at 12/30/17 0746 insulin lispro injection (rapid acting) (HumaLOG) SUBCUTANEOUS AT BEDTIME Caroline (Audio Production Engineer) Garcia 4 Units at 12/30/17 2117 Allergies: ALLERGIES Allergen Reactions - Bactrim [Sulfametho* Other: See Comments My throat swells up. - Latex Rash, Itching Itching and welts. No wheezing or shortness of breath. - Penicillins Rash, Itching Tolerated ceftriaxone during 11/2017 admission and cefepime during 12/2017 admission - Tetracycline Rash, GI Upset Emesis and diarrhea. - Atorvastatin Rash - Codeine Other: See Comments Numbness - Dilaudid [Hydromorp* Mental Status Change - Meperidine - Pentazocine - Pioglitazone Unknown - Propoxyphene DOS EXAM: Adequate NPO status: Yes Anesthetic risks, benefits, alternatives, personnel and consent discussed: Yes Patient agrees to proceed: Yes Previous Anesthesia: No history of adverse event. Airway Assessment: MP 2; Neck ROM: Full ROM without neurologic symptoms; Airway Evaluation: No significant abnormalities Symptoms of Sleep Apnea: None Dentition: Teeth intact Additional Physical Exam: Lungs: Patient health status unchanged since recent history and physical. See history and physical for exam findings. Cardiac: Patient health status unchanged since recent history and physical. See history and physical for exam findings. Additional Pertinent Findings: N/A Blood Products: Not anticipated for this procedure. Anesthetic Plan: MAC with Sedation Pain Management Plan: Parenteral or Oral ASA Class: 4 Other Medical Problems: atrial fibrillation, CAD s/p stenting on Eliquis and Aspirin, diabetes, HTN, HH, hypertrophic obstructive cardiomyopathy, CKD - stage IV, obesity and sleep apnea Tyrell Reagan will do the case himself I have interviewed and examined the patient. I have reviewed the medical record and/or the pre-anesthesia evaluation, pertinent labs, and test results. Significant changes in the patient's condition since the History and Physical, not otherwise documented in primary service progress notes: No This contains updated information obtained within 48 hours of Surgery/Procedure. SIGNATURE: Toñito River MD PATIENT NAME: Luz Baca DATE: December 31, 2017 TIME: 7:04 AM CSN: [id number] CBC Collected: 12/31/2017 Status: F Source: [place] 3:48 AM [facility] OTHER CAMPUS REPOSITORY TYPE CODE TESTS RESULT OUT OF REFERENCE UNITS RANGE LAB WBC 3.70-11.00 k/uL WBC 9.50 LAB RBC 3.90-5.20 m/uL RBC 4.15 LAB HGB 11.5-15.5 g/dL Hemoglobin 12.5 LAB HCT 36.0-46.0 % Hematocrit 40.5 LAB MCV 80.0-100.0 fL MCV 97.6 LAB MCH 26.0-34.0 pG MCH 30.1 LAB MCHC 30.5-36.0 g/dL MCHC 30.9 LAB RDWCV 11.5-15.0 % RDW-CV High 16.0 LAB PLTCT 150-400 k/uL Low Platelet Count 110 LAB MPV 9.0-12.7 fL MPV 9.9 Performed By: #### CBC, BMP, MG1 #### [facility] [address] [facility] [phone] BASIC METABOLIC PANL Collected: 12/31/2017 Status: F Source: [place] 3:48 AM [facility] REPOSITORY TYPE CODE TESTS RESULT OUT OF REFERENCE UNITS RANGE LAB GLU 74-99 mg/dL High Glucose 336 Result Comment: The [place] [employer] Association (ADA) provides guidance for cutoff values for fasting glucose and random glucose. The ADA defines fasting as no caloric intake for at least 8 hours. Fas ting plasma glucose results between 100 to 125 mg/dL indicate increased risk for diabetes (prediabetes). Fasting plasma glucose results greater than or equal to 126 mg/dL meet the criteria for diagnosis of diabetes. In the absence of unequivocal hyperglycemia, results should be confirmed by repeat testing. In a patient with classic symptoms of hyperglycemia or hyperglycemic crisis, random plasma glucose results greater than or equal to 200 mg/dL meet the criteria for diagnosis of diabetes. Reference: Standards of Medical Care in Diabetes 2016, [place] [employer]. Diabetes Care. 2016.39(Suppl 1). LAB BUN 7-21 mg/dL BUN High 64 LAB CRET 0.58-0.96 mg/dL Creatinine High 1.39 LAB NA 136-144 mmol/L Sodium 139 LAB K 3.7-5.1 mmol/L Potassium 5.1 LAB CL 97-105 mmol/L Low Chloride 96 LAB CO2 22-30 mmol/L CO2 High 37 LAB AGAP 9-18 mmol/L Low Anion Gap 6 LAB CA 8.5-10.2 mg/dL Calcium, Total 8.5 LAB GFRAA eGFR- Amer. 45 LAB GFRNAA . eGFR-All Other Races 37 Result Comment: eGFR (Estimated GFR) Units of measure: mL/min/1.73 meters squared eGFR is derived from the reexpressed MDRD Study equation using the following parameters: serum creatinine, age, gender and race. The creatinine assay has been calibrated to be traceable to IDMS. An eGFR <60 mL/min/1.73m2 for >3 months is consistent with chronic kidney disease. Refer to KDOQI guidelines for clinical interpretation. In patients with unstable renal function, e.g. those with acute kidney injury, the eGFR may not accurately reflect actual GFR. Performed By: #### CBC, BMP, MG1 #### [facility] [address] [place], [place] [phone] MAGNESIUM Collected: 12/31/2017 Status: F Source: [place] 3:48 AM [facility] REPOSITORY TYPE CODE TESTS RESULT OUT OF REFERENCE UNITS RANGE LAB MG 1.7-2.3 mg/dL High Magnesium 2.6 Performed By: #### CBC, BMP, MG1 #### [facility] [address] [place] [phone] OPERATIVE NO Observed: 12/31/2017 Status: COMPLETED Source: [place] 12:00 AM [facility] REPOSITORY HNO ID: [id number] Author: Mara Hernandez Service: (none) Author Type: Physician Type: Operative Report Filed: 01/03/2018 10:48 AM Note Text: [facility]- Operative Report LUZ BACA : 1940 AGE: 77 SEX: F ACCTNUM: [id number] [facility]: [facility] LOCATION: [facility] ATTENDING PHYSICIAN: PEYMAN GUERRERO DATE OF PROCEDURE: 12/31/2017 SURGEON: Mara Hernandez M.D. VMWARE ENGINEER: NONE ANESTHESIA: PREOPERATIVE DIAGNOSIS(ES): The patient with a history of dysphagia and esophagram revealing distal esophageal narrowing of undefined etiology. POSTOPERATIVE DIAGNOSIS(ES): 1. A 3-cm hiatal hernia from 44 cm to 41 cm. 2. Somewhat irregular GE junction. No mass. Biopsies pending to rule out Barron esophagus. 3. Modestly thick Schatzki's ring, status post dilatation. 4. White exudate in the esophagus, biopsies pending to rule out Pastor esophagitis. 5. Small volume retained food in the stomach, no evidence of gastric outlet obstruction, rule out gastroparesis. NAME OF OPERATION: An esophagogastroduodenoscopy with biopsy and esophageal dilatation. INDICATIONS: The patient with a history of dysphagia and esophagram revealing distal esophageal narrowing of undefined etiology. CONSENT: The patient was described the potential risks, benefits, and alternatives to upper endoscopy with intervention. All questions were answered. The patient gave informed consent. PROCEDURE: The patient was placed in a left lateral decubitus position. Monitored and sedated via monitored anesthesia care. Under direct vision and without difficulty, the upper endoscope was very gently advanced to the 2nd portion of the duodenum. The 1st and 2nd portions appeared normal. The scope was slowly and gently withdrawn into the stomach, which revealed a patent and normal- appearing pylorus. There was a small amount of retained food in the stomach, no evidence of gastric outlet obstruction, therefore must consider gastroparesis. The retained food limited mucosal views to a rwis-yf-bqdbtbde degree. Within the limits of visualization, the antrum and body appeared normal as did retroflexed views of the cardia and fundus. Antrum, angularis, body biopsies to rule out H. pylori. The scope was straightened and slowly withdrawn into the esophagus, which revealed a 44 cm diaphragmatic hiatus and 41 cm initiation of the tubular esophagus consistent with a 3-cm hiatal hernia. The mucosa within the hiatal hernia was normal. The GE junction was mildly irregular. No mass but a modestly thick Schatzki's ring present. Quartile biopsies taken to rule out short-segment Barron esophagus. Remainder of esophagus revealed white particulate matter attached to the mucosa. This may be retained food but must also rule out Pastor albicans. Therefore, biopsies were taken at 30 cm to allow for histologic evaluation. The scope was slowly and gently withdrawn. At this point, a very well lubricated 58-Greenlandic dilator was advanced into the esophagus and with no resistance. This was removed and a well lubricated 60-Greenlandic Romano dilator was advanced and met with minimal resistance. Upper endoscope was once again advanced into the esophagus and demonstrated a fracture in the anterior aspect of the Schatzki's ring. There was no evidence of bleeding or complication. The scope was gently withdrawn and the patient tolerated the procedure well. POSTOP PLAN: 1. Await biopsy results. 2. Anti-reflux lifestyle. 3. Small bites, chew well, plenty of liquids. 4. Protonix 40 mg each morning. 5. Nuclear medicine study for gastric emptying of solid material. Mara Hernandez M.D. Gastroenterology DBM:[id number] CASE MANAGEM Observed: 12/30/2017 Status: COMPLETED Source: [place] 3:25 PM [facility] REPOSITORY HNO ID: [id number] Author: Radha Bar (Sw) Service: Care Management Author Type: Board Catcher Type: Care Mgt Progress Note Filed: 12/30/2017 3:50 PM Note Text: CARE MANAGEMENT PROGRESS NOTE SERVICE DATE: 12/30/2017 SERVICE TIME: 3:15PM LOS: 7 days Patient requesting new hospital bed. Currently has bed that was obtained while she was living in [place] in 2013. Patient states it is broken. RX obtained from and referral sent to [facility]. Awaiting response. SIGNATURE: TAMELA Olson PATIENT NAME: Luz Baca DATE: December 30, 2017 TIME: 3:25 PM PAGER/CONTACT #: [phone] PROGRESS Observed: 12/30/2017 Status: COMPLETED Source: [place] 2:15 PM [facility] REPOSITORY HNO ID: [id number] Author: Peyman Guerrero Service: Hospital Medicine Author Type: Physician Type: Progress Notes Filed: 12/30/2017 2:23 PM Note Text: HOSPITAL MEDICINE PROGRESS NOTE Name: Luz Baca SERVICE DATE: 12/30/2017 SERVICE TIME: 2:15 PM LOCATION / [place] [facility] [id number] Hospital Medicine/Primary Attending: Peyman guerrero MD NIGHT COVERAGE BETWEEN 5.30P-7.30A Page [phone] ASSESSMENT AND PLAN HCAP (healthcare-associated pneumonia), suspected aspiration PNA with episodes of choking food/liquids Feels slowly improving, c/o mild sob with activity which seems to be chronic in nature - started with IV Vanco and Aztreonam initially and changed to Cefepime later - blood cx- no growth, sputum culture- Few Normal respiratory mitra present , negative nasal MRSA - consulted ID due to recurrent admission/HCAP for antibiotic choice, changed to Meropenum IV - consulted speech therapy, suspicion of aspiration PNA - MBS done - poor esophageal emptying while in an upright posture; Retrograde flow is noted below the level of the pharyngoesophageal segment. no occurrence of laryngeal penetration /aspiration is noted at this time. - Esophagogram- Esophagus very dilated with no apparent primary peristaltic wave. ?Did appear to be some narrowing at the gastroesophageal junction. ?Correlation with endoscopy recommended. No aspiration was seen - consulted GI; plan for EGD in am - continue duoneb q4hr + prn - Mucinex BID - aspiration precautions - Nursing Recommendations: Reinforce use of swallowing strategies;Utilize bed in chair position - Diet Recommendations: Regular Consistency;Thin liquids Continue to hold Eliquis and Aspirin (last dose 12/29) for EGD in am Acute on chronic combined systolic and diastolic CHF (congestive heart failure) Acute diastolic heart failure (LVEF 50%) HOCM- Status post septal myomectomy at the time of CABG 2003 CAD Status post CABG ?2, 07/18/04, VU to LAD, SVG to PDA; PCI ?6 RCA, 2013 PCI ?3 2014 Status post myocardial perfusion imaging stress test 08/11/17 with possible prior apical infarct and no ischemia, EF 50%. ICD - most likely some fluid overload - Pro BNP 2600 - cont with fluid restriction - Last Echo 12/21/2017 LVEF 50% with Grade 3 diastolic dysfunction - St Rob AICD / PM - minimal rate at 60 - nml function on check today. Result on chart. - negative 4.8 liter so far - consulted Dr. Yeung. - continue spironolactone - continue statin - continue apixaban for anticoagulation - resumed aspirin due to multi-vessel PCI in the past - changed lasix to 40 mg po daily - continue current management plan, monitor for fluid overload, I/O ? She can follow up as an outpatient with Dr. Cardona on discharge ? Acute on chronic respiratory failure with hypoxia? - chronic home O2 with 2.5 l/min NC - supplement as needed - back to base line ? COPD with acute exacerbation? - Given on dose in ER with Solumedrol - cont with treatment as above - wean steroids slowly ? Atrial fibrillation - Not on any BB - Cont Eliquis - Rate controlled - on telemetry monitoring noticed to be low 40's in HR - PM/ICD checked, normal function ?? Diabetes mellitus due to underlying condition, uncontrolled, with stage 3 chronic kidney disease, with long-term current use of insulin On amaryl and sitagliptan Will start sliding scale option 1 coverage Follow accuchecks HgbA1c: >15 (Oct 2707/2018) ?? Coronary artery disease H/O of CABGx2 (DEBORAH-LAD, SVG-PDA ) in 2004 On simvastatin, ASA ?? Essential hypertension Controlled, monitor ?? GERD (gastroesophageal reflux disease) On nexium - protonix here ?? Hyperlipidemia On simvastatin LDL 61 ?? Sleep apnea Should wears CPAP at home But not used for years Last sleep study in possible 2008 ?? Obesity Diet/exercise/weightloss discussed with patient ? SUBJECTIVE INTERVAL HPI: Feels improving slowly, no fever, chills, cp nor palpitations. Stable vitals No overnight issues Plan for EGD in am MEDICATIONS: Reviewed Current Facility-Administered Medications: [START ON 12/31/2017] NaCl 0.9% iv infusion 100 mL/hr INTRAVENOUS (PACU) CONTINUOUS Mandy (Audio Production Engineer) [place] nystatin 5 mL oral liquid (MYCOSTATIN) 5 mL ORAL QID Peyman Cesar 5 mL at 12/30/17 1332 furosemide 40 mg tab(s) (LASIX) 40 mg ORAL DAILY Peyman Cesar 40 mg at 12/30/17 0748 meropenem 1 g in D5W 100 mL MB+ (MERREM) 1 g INTRAVENOUS q 12 H Max Rodolfo 1 g at 12/30/17 0744 predniSONE 20 mg tab(s) (DELTASONE) 20 mg ORAL DAILY Radha Adams) Thuestad 20 mg at 12/30/17 0747 dextrose 40 % 15 g 15 g ORAL PRN Leandro Kauffman MD Or glucagon 1 mg injection (GLUCAGEN) 1 mg INTRAMUSCULAR PRN Leandro Kauffman MD Or dextrose 50% in water 25 mL syringe 12.5 g INTRAVENOUS PRN Leandro Kauffman MD simvastatin 40 mg tab(s) (ZOCOR) 40 mg ORAL AT BEDTIME Radha Adams) Thuestad 40 mg at 12/29/172009 gabapentin 600 mg cap(s) (NEURONTIN) 600 mg ORAL BID Radha Adams) Thuestad 600 mg at 12/30/17 0746 ipratropium-albuterol 3 mL nebulizer solution (DUONEB) 3 mL INHALATION q 4 H while awake Radha Adams) Thuestad 3 mL at 12/30/17 1037 colchicine 0.6 mg tab(s) 0.6 mg ORAL DAILY Radha Adams) Thuestad 0.6 mg at 12/30/17 0746 insulin lispro 10 Units injection (rapid acting) (HumaLOG) 10 Units SUBCUTANEOUS TID w MEALS Radha Adams) Thuestad 10 Units at 12/30/17 1217 insulin glargine 45 Units injection (long acting) (LANTUS) 45 Units SUBCUTANEOUS DAILY (8 AM) Radha Adams) Thuestad 45 Units at 12/30/17 0745 insulin glargine 30 Units injection (long acting) (LANTUS) 30 Units SUBCUTANEOUS AT BEDTIME Radha Adams) Thuestad 30 Units at 12/29/172009 guaiFENesin-dextromethorphan 100-10 mg/5 mL 5-10 mL oral liquid (ROBITUSSIN DM) 5-10 mL ORAL q 6 H PRN Radha Adams) Thuestad 10 mL at 12/30/17 0523 potassium chloride ER 10 mEq tab(s) (K-DUR, KLOR-CON) 10 mEq ORAL DAILY Radha Adams) Thuestad 10 mEq at 12/30/17 0747 spironolactone 25 mg tab(s) (ALDACTONE) 25 mg ORAL DAILY [place]) Thuestad 25 mg at 12/30/[address] 40 mg tab(s) (PROTONIX) 40 mg ORAL DAILY (6 AM) Radha Adams) Thuestad 40 mg at 12/30/17 0523 isosorbide mononitrate ER 30 mg tab(s) (IMDUR) 30 mg ORAL DAILY Radha Adams) Thuestad 30 mg at 12/30/17 0746 nitroglycerin sublingual 0.4 mg tab(s) (NITROQUICK) 0.4 mg SUBLINGUAL q 5 MIN PRN Radha Adams) Thuestad 0.9% NaCl 3-5 mL 3-5 mL INTRAVENOUS q 12 H Radha Adams) Thuestad 5 mL at 12/30/17 0744 benzonatate 100 mg cap(s) (TESSALON PERLE) 100 mg ORAL TID Hareesh Singam 100 mg at 12/30/17 1216 insulin lispro injection (rapid acting) (HumaLOG) SUBCUTANEOUS w MEALS Caroline (Audio Production Engineer) Garcia 8 Units at 12/30/17 0746 insulin lispro injection (rapid acting) (HumaLOG) SUBCUTANEOUS AT BEDTIME Caroline (Audio Production Engineer) Garcia 2 Units at 12/29/172010 OBJECTIVE PHYSICAL EXAM: BP 114/66 Pulse 61 Temp (Src) 98.1 (Oral) Resp 18 Ht 5' 8 (1.73m) Wt 232 lb 9.4 oz (105.5kg) SpO2 95% BMI 35.37 kg/(m2). GENERAL: Alert, no distress, cooperative, obese SKIN: Skin color, texture, turgor normal. No rashes or lesions. EYES: PERRLA, EOMI OROPHARYNX: Lips, mucosa, and tongue normal. Teeth and gums normal. Oropharynx normal. NECK: No jugulovenous distention, No carotid bruits, Carotid pulse normal contour, Supple LUNGS: Lungs clear to auscultation, Good diaphragmatic excursion CARDIAC: Normal S1 and S2; no rubs, murmurs, or gallops ABDOMEN: Abdomen soft, non-tender, BS normal, No masses or organomegaly EXTREMITIES: Extremities normal, no deformities, edema, clubbing or skin discoloration. Good capillary refill., No ulcers NEURO: Reflexes normal and symmetric. Sensation grossly intact, Cranial nerves II-XII intact PULSES: 2+ radial, 2+ carotid DATA: Diagnostic tests reviewed for today's visit: CBC, Coags, BMP, Mg, Phos Recent Labs 12/30/17 0345 12/29/17 0312 12/28/17 0309 WBC 10.16 9.15 9.78 HB 11.9 12.0 12.8 HCT 39.3 38.7 42.0 PLT 104* 104* 112* NA 142 140 141 K 5.4* 5.1 5.1 CHLOR 101 99 99 CO2 34* 36* 35* BUN 70* 65* 70* CREAT 1.46* 1.52* 1.61* GLUC 203* 145* 161* CA 8.8 8.3* 9.2 MG 2.6* 2.5* 2.7* VTE Prophylaxis: Patient is already anti-coagulated. Disposition: Home with [facility] PT Plan of care discussed with: Patient and RN SIGNATURE: Peyman guerrero MD DATE: December 30, 2017 TIME: 2:23 AM CONSULT PROG Observed: 12/30/2017 Status: COMPLETED Source: [place] 1:35 PM [facility] OTHER CAMPUS REPOSITORY HNO ID: [id number] Author: Max Reynolds Service: Infectious Disease Author Type: Physician Type: Consult Progress Note Filed: 12/30/2017 1:38 PM Note Text: INFECTIOUS DISEASE PROGRESS NOTE Patient Name: Luz Baca Date: 12/30/2017 ASSESSMENT: 1. Bibasilar pneumonia, concern is for aspiration and gram-negative component due to her recent hospitalization. MRSA nasal swab is negative. 2. Leukocytosis, likely due to #1. 3. Acute on chronic respiratory failure, which is improved likely due to #1. 4. Severe COPD. 5. Multiple antibiotic allergies. 6. Thrombocytopenia, which appears to be chronic. 7. Chronic kidney disease stage 4 8. Suspected pharyngeal and esophageal phase dysphagia + esophageal dilation ?? achalasia PLAN: Continue meropenem Await EGD per GI INTERVAL HISTORY: ROS done with pt/RN and negative unless stated. No fevers chills nausea vomiting diarrhea. less cough and shortness of breath. Seen by GI. Rev esophagogram. MEDICATIONS: reviewed. Current hospital medications: [START ON 12/31/2017] NaCl 0.9% iv infusion 100 mL/hr INTRAVENOUS (PACU) CONTINUOUS nystatin 5 mL oral liquid (MYCOSTATIN) 5 mL ORAL QID furosemide 40 mg tab(s) (LASIX) 40 mg ORAL DAILY meropenem 1 g in D5W 100 mL MB+ (MERREM) 1 g INTRAVENOUS q 12 H predniSONE 20 mg tab(s) (DELTASONE) 20 mg ORAL DAILY dextrose 40 % 15 g 15 g ORAL PRN glucagon 1 mg injection (GLUCAGEN) 1 mg INTRAMUSCULAR PRN dextrose 50% in water 25 mL syringe 12.5 g INTRAVENOUS PRN simvastatin 40 mg tab(s) (ZOCOR) 40 mg ORAL AT BEDTIME gabapentin 600 mg cap(s) (NEURONTIN) 600 mg ORAL BID ipratropium-albuterol 3 mL nebulizer solution (DUONEB) 3 mL INHALATION q 4 H while awake colchicine 0.6 mg tab(s) 0.6 mg ORAL DAILY insulin lispro 10 Units injection (rapid acting) (HumaLOG) 10 Units SUBCUTANEOUS TID w MEALS insulin glargine 45 Units injection (long acting) (LANTUS) 45 Units SUBCUTANEOUS DAILY (8 AM) insulin glargine 30 Units injection (long acting) (LANTUS) 30 Units SUBCUTANEOUS AT BEDTIME guaiFENesin-dextromethorphan 100-10 mg/5 mL 5-10 mL oral liquid (ROBITUSSIN DM) 5-10 mL ORAL q 6 H PRN potassium chloride ER 10 mEq tab(s) (K-DUR, KLOR-CON) 10 mEq ORAL DAILY spironolactone 25 mg tab(s) (ALDACTONE) 25 mg ORAL DAILY pantoprazole DR 40 mg tab(s) (PROTONIX) 40 mg ORAL DAILY (6 AM) isosorbide mononitrate ER 30 mg tab(s) (IMDUR) 30 mg ORAL DAILY nitroglycerin sublingual 0.4 mg tab(s) (NITROQUICK) 0.4 mg SUBLINGUAL q 5 MIN PRN 0.9% NaCl 3-5 mL 3-5 mL INTRAVENOUS q 12 H benzonatate 100 mg cap(s) (TESSALON PERLE) 100 mg ORAL TID insulin lispro injection (rapid acting) (HumaLOG) SUBCUTANEOUS w MEALS insulin lispro injection (rapid acting) (HumaLOG) SUBCUTANEOUS AT BEDTIME PHYSICAL EXAM: Vital signs: BP 114/66 Pulse 61 Temp 36.7 ?C (98.1 ?F) (Oral) Resp 18 Ht 172.7 cm (5' 8) Wt 105.5 kg (232 lb 9.4 oz) SpO2 95% BMI 35.36 kg/m2 General: alert, oriented, NAD Lungs: bilaterally Coarse breath sounds better Heart: regular rate and rhythm Abdomen: soft, non tender, non distended, BS+ Extremities: no swollen joints Skin: no rash IV sites - wnl Lab data: reviewed Recent Labs 12/30/17 0345 12/29/17 0312 12/28/17 0309 WBC 10.16 9.15 9.78 HB 11.9 12.0 12.8 PLT 104* 104* 112* NA 142 140 141 K 5.4* 5.1 5.1 CO2 34* 36* 35* BUN 70* 65* 70* CREAT 1.46* 1.52* 1.61* Microbiology data: reviewed Imaging data: reviewed Esophagogram - Esophagus very dilated with no apparent primary peristaltic wave. ?Did appear to be some narrowing at the gastroesophageal junction. ? Correlation with endoscopy recommended Max Reynolds MD Pager: NURSING PROG Observed: 12/30/2017 Status: COMPLETED Source: [place] 1:20 PM [facility] REPOSITORY HNO ID: [id number] Author: Chantelle Dobson RN Service: Nursing Author Type: Registered Nurse Type: Nursing Progress Note Filed: 12/30/2017 1:20 PM Note Text: Nursing Progress Note Patient Name: Luz Franco Baca Patient Location: [place] [id number] Daily Note: 1245- Patient requesting nystatin oral for thrush. Dr Cesar ramos. This note was completed by: Chantelle Dobson RN CASE MANAGEM Observed: 12/30/2017 Status: COMPLETED Source: [place] 10:28 AM [facility] REPOSITORY HNO ID: [id number] Author: Radha Bar (Sw) Service: Care Management Author Type: Board Catcher Type: Care Mgt Progress Note Filed: 12/30/2017 10:29 AM Note Text: CARE MANAGEMENT PROGRESS NOTE SERVICE DATE: 12/30/2017 SERVICE TIME: 10:20am LOS: 7 days EMR reviewed. Scheduled for EGD tomorrow. Updates sent to [facility]. SIGNATURE: TAMELA Olson PATIENT NAME: Luz Andersonlain DATE: December 30, 2017 TIME: 10:28 AM PAGER/CONTACT #: [phone] THERAPY NT Observed: 12/30/2017 Status: COMPLETED Source: [place] 9:28 AM CLIN[facility] OTHER CAMPUS REPOSITORY HNO ID: [id number] Author: Mary Nieto Service: Physical Therapy Author Type: Complex Director Type: Therapy (PT/OT/Speech/Resp) Filed: 12/30/2017 9:34 AM Note Text: Attestation signed by Elsy Lees at 12/31/2017 9:58 AM I reviewed and agree with the documentation corresponding to this therapy visit. SIGNATURE: Elsy Lees PT DATE: December 31, 2017 TIME: 9:58 AM Physical Therapy Treatment SERVICE DATE: 12/30/2017 SERVICE TIME: 822 to 11 ROOM: [place] [id number] Recommended Discharge Disposition: Home PT Recommended Discharge Disposition Comments: Patient would benefit from home PT for home safety assessment and to increase strength/safety/tolerance with functional progression Anticipated Discharge Needs: Physical Assist at Home;Supervision at Home;Equipment Physical Assist at Home for: Transportation;Shopping;Self Care;Meals;Laundry;Cleaning Supervision at Home due to: Decreased safety awareness Recommended Discharge Equipment: No equipment needs anticipated PT Recommendations to Nursing: Ambulate with device;To bathroom;In halls;Transfer to/from chair;OOB for Meals;With assist of 1 person Device: Wheeled Walker (gait belt) PT 6 Clicks Score: 22 Precautions/Activity Restrictions: Diabetic;Diet Restrictions;Fluid Restrictions;Fall Risk;Lines/Tubes/Drains Precaution/Activity Restriction Comments: standard precautions ASSESSMENT : Patient pleasant and highly motivated to participate with PT. Patient successfully able to progress ambulation distance, initiate stair training and perform standing exercises with no adverse effects. Patient is no more than CGA/SBA with all functional mobility. Patient demonstrates good safety awareness and appropriately follows therapist cues. Patient fatigues quickly, requires frequent rest breaks. Patient reports that hand rail is being installed on stairs at home before discharge. Tolerated Full Session Physical Therapy Problem List: Safety Deficits;Decreased Activity Tolerance;Decreased Strength;Functional Mobility Impairment;Balance Impaired Patient /Caregiver Goals: Go Home (with Home PT and assist of daughter) Goals for Plan of Care: Able to perform HEP with: Modified Independent (w handout for fxnal LE strength x 20 reps) Transfer supine to/from sit with: Independent (to safely sit EOB without bed adjustments) Transfer sit to/from stand with: Stand By Assistance Ambulate with: Stand By Assistance Distance: 150 - 200 feet to safely navigate in home environment Device: Wheeled Walker Ambulate up and down steps with: Stand By Assistance Number of steps: 2 (to safely enter home) Device: (LRAD) Goal: Patient demonstrates fair+ to good balance with functional progression to decrease risk of falls Progress Toward Goals: Progressing as expected Rehab Potential: Good PLAN: Treatment Frequency (times per week): 4 Current admission Treatment Interventions: Education;Self Care / Home Management;Energy Conservation Training;Joint Mobility;Strengthening;Functional Mobility Training;Balance Training;Neuromuscular Re-education Plan of Care developed with: Patient TREATMENT INTERVENTIONS: Therapy Diagnosis: Reduced mobility-other Interventions Provided: Therapeutic Exercise (96719);Therapeutic Activity (95519);Gait Training (54033) Therapeutic Exercise (29413) Treatment Minutes: 15 1 unit Skilled Intervention(s): Instruction in standing therapeutic exercise for bilateral heel/toe raises, hip abduction/adduction, marching and hamstring curls x 10 reps each Verbal and tactile cuing provided for correct performance of exercises Therapeutic Activity (50554) Treatment Minutes: 3 0 units Skilled Intervention(s): Instruction in sit to stand technique with proper hand placement and body positioning at edge of bed/chair Instruction in stand to sit technique with lower extremities touching chair/bed and reaching back for surface Discussed with patient possibility of obtaining new hospital bed for home going. Discussed with case aide. Gait Training (16935) Treatment Minutes: 30 2 units Skilled Intervention(s): Instruction in sequencing, gait pattern, reciprocating steps Instruction in correction of gait deviations, cues for upright posture, safety, and diaphragmatic breathing Instruction in stair negotiation, [id number]. Cues provided for safety. Instruction in use of equipment, cues for sequence and pattern Total Timed Code Treatment Minutes: 48 Total Treatment Time (minutes): 48 FUNCTIONAL G CODE: PT 6 Clicks Score: 22 (12/30/17910) $ Mobility: Walking and Moving Around Current Status (G8978): CJ (12/28/17916) $ Mobility: Walking and Moving Around Goal Status (G8979): CI (12/28/17916) Based on clinical assessment and the score on the 6 Clicks Functional Assessment Tool, the G code and corresponding severity modifiers are documented above. SUBJECTIVE: Current Hospital Course: Chart reviewed and no significant medical updates relevant to therapy were noted Patient Report: Patient sitting EOB upon arrival, agreeable and motivated to participate in PT. Patient states, I need a new hospital bed, no one knows how I get one. Patient appropriate for PT per Chantelle VALADEZ. Home Environment Patient Lives With: Family (daughter) Assistance Available: 24 Hour (assist provided by dtr/her fiance,grand dtr) Entry To Home: Stairs;Without Rail Number Of Stairs Into Home: 2 Number Of Stairs To Bed/Bath: 0 (first floor set up) Tub/Shower Type: tub/shower set up with grab bars Laundry: dtr does per laundromat Equipment Owned: Cane;Commode-Bedside;Grab Bars-Shower;Wheeled Walker;Home Oxygen;Other: See Comment (broken hospital bed) Prior Functional Level: Within Functional Limits;Required Assistance;History of Falls Assistance Required With: Cleaning;Laundry;Meals;Self Care;Shopping;Transportation Prior Functional Level Comments: One fall in last 6 month. Patient ind w amb short distances w FWW. Patient sleeps in hospital bed however hospital bed has springs that stick up. Daughter assists with getting her in/out of shower (stands to shower in tub), assists w bathing and dressing as patient needs. Patient is homebound except for MD appointments. Family completes all IADL's OBJECTIVE: CURRENT FUNCTIONAL STATUS: Current Functional Mobility Assist Level Additional Information Rolling Supine to Sit Other: See Comment (patient sitting EOB upon arrival) Sit to Supine Other: See Comment (patient returned to sitting EOB at end of treatment) Scooting Independent (forward/retro in bed) Sit to Stand Stand By Assistance (with FWW) x3 trials from EOB Stand to Sit Stand By Assistance (with FWW) Cues to keep FWW with her at all times Bed to Chair Toilet/Commode Gait Stand By Assistance (reciprocating steps) Gait Device: Wheeled Walker Gait Distance (feet): 300'x1, 64'x1 Stairs Contact Guard Assistance Stairs Device: Rail (holds with both hands on R side) Number of Stairs: 2 Curb Step Car Transfer Gait Deviations Right Lower Extremity: Heel strike during initial stance decreased;Push-off during terminal stance decreased;Step length decreased Gait Deviations Left Lower Extremity: Heel strike during initial stance decreased;Push-off during terminal stance decreased;Step length decreased General Gait Deviations: Jane decreased;Step length decreased;Flexed trunk posture Patient sitting EOB, denies symptoms at this time, call bear and personal belongings in reach, denies any further questions, concerns or needs from REGULATOR ASSEMBLER at this time. Gait belt in place for safety with all functional mobility. RN (Chantelle) aware of patient status. Discussed with patient calling for assistance 100% of the time. Balance: Static Sitting;Dynamic Sitting;Static Standing;Dynamic Standing Static Sitting Balance: Independent Dynamic Sitting Balance: Independent Static Standing Balance: Supervision Dynamic Standing Balance: Stand By Assistance Please see discipline specific clinical documentation flowsheet for complete details for this therapy evaluation/treatment. SIGNATURE: Mary Nieto PTA PATIENT NAME: Luz Baca DATE: December 30, 2017 TIME: 9:28 AM PAGER/CONTACT #: [phone] CONSULT PROG Observed: 12/30/2017 Status: COMPLETED Source: [place] 9:20 AM [facility] OTHER CAMPUS REPOSITORY O ID: [id number] Author: Mara Hernandez Service: Gastroenterology Author Type: Physician Type: Consult Progress Note Filed: 12/30/2017 10:44 AM Note Text: GASTROENTEROLOGY CONSULT PROGRESS NOTE Patient Name: Luz Baca SERVICE DATE: December 30, 2017 SERVICE TIME: 9:20 AM ASSESSMENT 1. Chronic worsening dysphagia 2. Abn MBS/Esophagram - Dilated esophagus with narrowing at the GE junction 3. thrombocytopenia 4. Pneumonia with suspicion for aspiration / Acute exacerbation COPD / MARLA / Chronic home O2 5. A. Fib / CAD hx of CABG x 2 and stenting / CHF 6. Morbid obesity ? ? PLAN - Proceed with EGD in am. R+B+A discussed and patient is willing to proceed - Continue to hold Eliquis and Aspirin (last dose 12/29) - Atb per ID (Meropenem) - Continue Pantoprazole 40 mg po daily - Carb controlled, 4 gram sodium diet with 1400 ml fluid restriction - Daily BMP, CBC and Magnesium - Attempt to obtain records from [facility] in [place] INTERVAL HPI: Patient reports feeling well this am. No complaints of abdominal pain, nausea or vomiting. Breathing is slowly improving each day. Tolerating a carb controlled diet with 4 gram sodium. However daughter has been bringing in food from the cafeteria. Working with therapy and ambulating the hallways. PHYSICAL EXAM: Patient Vitals for the past 24 hrs: BP Temp Temp src Pulse Resp SpO2 12/30/17 0744 109/85 36.6 ?C (97.9 ?F) Oral 66 18 97 % 12/30/17 0435 110/59 36.3 ?C (97.3 ?F) Oral 64 20 100 % 12/30/17 0019 126/53 36.3 ?C (97.3 ?F) Oral (!) 59 20 97 % 12/29/17 1954 (!) 128/49 36.6 ?C (97.9 ?F) Oral (!) 59 20 98 % 12/29/17 1530 107/81 37.4 ?C (99.3 ?F) Oral 63 18 92 % 12/29/17 1129 117/59 36.3 ?C (97.3 ?F) Oral 65 18 98 % GENERAL: Alert AND oriented x 3. Cooperative. NAD. No dentition. EYES: No scleral icterus SKIN: [place] in color. No jaundice LUNGS: Diminished to auscultation anteriorly. Expiratory wheezes. CARDIAC: RRR ABDOMEN: BS x 4. Abdomen obese, significant upper abdominal hernia, soft, non tender, non distended, no palpable masses or organomegaly. No guarding or rebound tenderness elicited EXTREMITIES: Vascular changes to BLE MEDICATIONS: Current hospital medications: [START ON 12/31/2017] NaCl 0.9% iv infusion 100 mL/hr INTRAVENOUS (PACU) CONTINUOUS furosemide 40 mg tab(s) (LASIX) 40 mg ORAL DAILY meropenem 1 g in D5W 100 mL MB+ (MERREM) 1 g INTRAVENOUS q 12 H predniSONE 20 mg tab(s) (DELTASONE) 20 mg ORAL DAILY dextrose 40 % 15 g 15 g ORAL PRN glucagon 1 mg injection (GLUCAGEN) 1 mg INTRAMUSCULAR PRN dextrose 50% in water 25 mL syringe 12.5 g INTRAVENOUS PRN simvastatin 40 mg tab(s) (ZOCOR) 40 mg ORAL AT BEDTIME gabapentin 600 mg cap(s) (NEURONTIN) 600 mg ORAL BID ipratropium-albuterol 3 mL nebulizer solution (DUONEB) 3 mL INHALATION q 4 H while awake colchicine 0.6 mg tab(s) 0.6 mg ORAL DAILY insulin lispro 10 Units injection (rapid acting) (HumaLOG) 10 Units SUBCUTANEOUS TID w MEALS insulin glargine 45 Units injection (long acting) (LANTUS) 45 Units SUBCUTANEOUS DAILY (8 AM) insulin glargine 30 Units injection (long acting) (LANTUS) 30 Units SUBCUTANEOUS AT BEDTIME guaiFENesin-dextromethorphan 100-10 mg/5 mL 5-10 mL oral liquid (ROBITUSSIN DM) 5-10 mL ORAL q 6 H PRN potassium chloride ER 10 mEq tab(s) (K-DUR, KLOR-CON) 10 mEq ORAL DAILY spironolactone 25 mg tab(s) (ALDACTONE) 25 mg ORAL DAILY pantoprazole DR 40 mg tab(s) (PROTONIX) 40 mg ORAL DAILY (6 AM) isosorbide mononitrate ER 30 mg tab(s) (IMDUR) 30 mg ORAL DAILY nitroglycerin sublingual 0.4 mg tab(s) (NITROQUICK) 0.4 mg SUBLINGUAL q 5 MIN PRN 0.9% NaCl 3-5 mL 3-5 mL INTRAVENOUS q 12 H benzonatate 100 mg cap(s) (TESSALON PERLE) 100 mg ORAL TID insulin lispro injection (rapid acting) (HumaLOG) SUBCUTANEOUS w MEALS insulin lispro injection (rapid acting) (HumaLOG) SUBCUTANEOUS AT BEDTIME LABS: CBC, Coags, BMP, Mg, Phos Recent Labs 12/30/17 0345 12/29/17 0312 12/28/17 0309 WBC 10.16 9.15 9.78 HB 11.9 12.0 12.8 HCT 39.3 38.7 42.0 PLT 104* 104* 112* NA 142 140 141 K 5.4* 5.1 5.1 CHLOR 101 99 99 CO2 34* 36* 35* BUN 70* 65* 70* CREAT 1.46* 1.52* 1.61* GLUC 203* 145* 161* CA 8.8 8.3* 9.2 MG 2.6* 2.5* 2.7* Liver Function, Amylase, AND Lipase [facility] LABS: Component 07/14/2004 07/25/2004 09/23/2010 05/17/2017 10/27/2017 12/15/2017 12/23/2017 12/24/2017 12/25/2017 12/27/2017 12/28/2017 12/29/2017 12/30/2017 Platelet Count 187 149 (A) 179 170 159 236 130 (L) 135 (L) 135 (L) 126 (L) 112 (L) 104 (L) 104 (L) RADIOLOGY 12/21/2017 Echo - Technically difficult exam due to body habitus and COPD. - Exam indication: s/p myectomy - The left ventricle is normal in size. There is mild left ventricular hypertrophy. Left ventricular systolic function is mildly decreased. EF = 50 ? 5% (visual est.) Grade III left ventricular diastolic dysfunction. - The right ventricle is dilated. Right ventricular systolic function is mildly decreased. - The left atrial cavity is moderately dilated. - The right atrial cavity is dilated. - There is moderate (2+ - 3+) tricuspid valve regurgitation. - Estimated right ventricular systolic pressure is 78 mmHg consistent with moderately severe pulmonary hypertension. Estimated right atrial pressure is 10 mmHg. - Definity contrast could not be administered d/t unavailability of staff. - s/p myectomy: LVOT gradient at rest 6 mmHg, trivial-1+ MR. Patient unable to valsalva. - Exam was compared with the prior echocardiographic exam performed on 09/23/2010. LV function is normal on this study, and the patient appears to be in NSR (was in AF with RVR on prior study) ? 12/23/2017 CXR Opacity in the left lung base is suggestive of a small left pleural effusion, atelectasis and/or consolidation. Mild right basilar atelectasis. No pneumothorax. There is prominence of the pulmonary vasculature is suggestive of pulmonary congestion/edema. ? 12/29/2017 MBS/Esophagram Esophagus: Patient was able to swallow barium without apparent difficulty initially. ?It passed through a moderately dilated esophagus to level the gastroesophageal junction. ?Suggestion of some narrowing at the level gastroesophageal junction. ?No definite primary peristaltic wave was seen. The esophagus was quite dilated and tortuous in the cervical region. Stomach: Contrast passed into the stomach and into the small bowel IMPRESSION: Esophagus very dilated with no apparent primary peristaltic wave. ?Did appear to be some narrowing at the gastroesophageal junction. ?Correlation with endoscopy recommended No aspiration was seen ? MOST RECENT EGD / COLONOSCOPY Have been completed is unclear of details surrounding procedures. Believes they were completed at [facility] in [facility] ? SIGNATURE: Mandy Yanez CNP DATE: December 30, 2017 TIME: 9:20 AM Patient seen and examined. Discussed with mid level provider. Aguilera findings confirmed. Plan as outlined. Dysphagia and GE junction narrowing. EGD w dilatation in am. Mara Hernandez MD December 30, 2017 10:43 AM NURSING PROG Observed: 12/30/2017 Status: COMPLETED Source: [place] 5:35 AM [facility] OTHER CAMPUS REPOSITORY HNO ID: [id number] Author: Saul Leger (Rn) ALLYSON eHrnandez Service: (none) Author Type: Registered Nurse Type: Nursing Progress Note Filed: 12/30/2017 5:36 AM Note Text: Nursing Progress Note Patient Name: Luz Baca Patient [place] [facility] [id number] Daily Note: 0535 - Dr. Wick notified of pts elevated potassium level; no new orders at this time; will continue to monitor This note was completed by: Saul Hernandez RN CBC Collected: 12/30/2017 Status: F Source: [place] 3:45 AM [facility] OTHER CAMPUS REPOSITORY TYPE CODE TESTS RESULT OUT OF REFERENCE UNITS RANGE LAB WBC 3.70-11.00 k/uL WBC 10.16 LAB RBC 3.90-5.20 m/uL RBC 4.05 LAB HGB 11.5-15.5 g/dL Hemoglobin 11.9 LAB HCT 36.0-46.0 % Hematocrit 39.3 LAB MCV 80.0-100.0 fL MCV 97.0 LAB MCH 26.0-34.0 pG MCH 29.4 LAB MCHC 30.5-36.0 g/dL Low MCHC 30.3 LAB RDWCV 11.5-15.0 % RDW-CV High 15.9 LAB PLTCT 150-400 k/uL Low Platelet Count 104 LAB MPV 9.0-12.7 fL MPV 9.5 Performed By: #### CBC, BMP, MG1 #### [facility] [address] [facility] [phone] BASIC METABOLIC PANL Collected: 12/30/2017 Status: F Source: [place] 3:45 AM [facility] OTHER [place] REPOSITORY TYPE CODE TESTS RESULT OUT OF REFERENCE UNITS RANGE LAB GLU 74-99 mg/dL High Glucose 203 Result Comment: The [place] [employer] Association (ADA) provides guidance for cutoff values for fasting glucose and random glucose. The ADA defines fasting as no caloric intake for at least 8 hours. Fas ting plasma glucose results between 100 to 125 mg/dL indicate increased risk for diabetes (prediabetes). Fasting plasma glucose results greater than or equal to 126 mg/dL meet the criteria for diagnosis of diabetes. In the absence of unequivocal hyperglycemia, results should be confirmed by repeat testing. In a patient with classic symptoms of hyperglycemia or hyperglycemic crisis, random plasma glucose results greater than or equal to 200 mg/dL meet the criteria for diagnosis of diabetes. Reference: Standards of Medical Care in Diabetes 2016, [place] [employer]. Diabetes Care. 2016.39(Suppl 1). LAB BUN 7-21 mg/dL BUN High 70 LAB CRET 0.58-0.96 mg/dL Creatinine High 1.46 LAB NA 136-144 mmol/L Sodium 142 LAB K 3.7-5.1 mmol/L Potassium High 5.4 LAB CL 97-105 mmol/L Chloride 101 LAB CO2 22-30 mmol/L CO2 High 34 LAB AGAP 9-18 mmol/L Low Anion Gap 7 LAB CA 8.5-10.2 mg/dL Calcium, Total 8.8 LAB GFRAA eGFR- Amer. 42 LAB GFRNAA . eGFR-All Other Races 35 Result Comment: eGFR (Estimated GFR) Units of measure: mL/min/1.73 meters squared eGFR is derived from the reexpressed MDRD Study equation using the following parameters: serum creatinine, age, gender and race. The creatinine assay has been calibrated to be traceable to IDMS. An eGFR <60 mL/min/1.73m2 for >3 months is consistent with chronic kidney disease. Refer to KDOQI guidelines for clinical interpretation. In patients with unstable renal function, e.g. those with acute kidney injury, the eGFR may not accurately reflect actual GFR. Performed By: #### CBC, BMP, MG1 #### [facility] [address] [place], [place] [id number] MAGNESIUM Collected: 12/30/2017 Status: F Source: [place] 3:45 AM [facility] REPOSITORY TYPE CODE TESTS RESULT OUT OF REFERENCE UNITS RANGE LAB MG 1.7-2.3 mg/dL High Magnesium 2.6 Performed By: #### CBC, BMP, MG1 #### [facility] [address] [place], [place] [id number] THERAPY NT Observed: 12/29/2017 Status: COMPLETED Source: [place] 3:33 PM [facility] REPOSITORY HNO ID: [id number] Author: Keren (Fourdrinier Wire Weaver) Pema Service: Speech/Swallow Author Type: Speech Language Pathologist Type: Therapy (PT/OT/Speech/Resp) Filed: 12/29/2017 3:37 PM Note Text: Speech Therapy Treatment SERVICE DATE: 12/29/2017 SERVICE TIME: 1425 to 1445 ROOM: [place] [address] Nursing Recommendations: Reinforce use of swallowing strategies Diet Recommendations: Regular Consistency;Thin liquids Swallowing Precautions Recommendations: Anti-Reflux precautions;Maintain an upright position 20-30 minutes following all oral intake;Sit upright 90 degrees for all PO;Self-monitoring;Double swallows;Alternate bites and sips;Small Bite/Sip;Extended time between presentations ? Recommended Consults: GI; May need to consider additional diagnostic information through an Esophagram ? Results and Recommendations Discussed With: Patient;Nurse ? Recommended Discharge Disposition: Unable to determine ? IMPRESSION: Patient demonstrates pharyngeal / esophageal phase dysphagia which is negatively impacting his/her ability to effectively maintain adequate nutrition and hydration and/or airway safety. ? Precaution/Activity Restriction Comments: standard precautions ? ASSESSMENT: Tx intervention characterized by: - education/ consult on safe swallow precautions to increase tolerance of current diet without s/s of aspiration/penetration - educate on findings of MBS complete 12-28-2017; Pt able to ID precautions/ findings via Teachback method Modified Barium Swallowing Exam completed 12/28/2017 reveals the following: -poor esophageal emptying while in an upright posture; Retrograde flow is noted below the level of the pharyngoesophageal segment -no occurrence of laryngeal penetration /aspiration is noted at this time. ? Rehabilitation Precautions: Modified Diet;Aspiration Precautions;Dysphagia Precaution/Activity Restriction Comments: standard precautions Goals for Plan of Care: Swallow Goals: -Patient will demonstrate adequate return of knowledge of all compensatory strategies/instruction to effectively assist the patient in immediate safety with oral intake and swallowing. ? Patient /Caregiver Goals: Eat/Drink Without Restrictions Progress Toward Goals: Progressing as expected Rehab Potential: Good PLAN: Treatment Frequency (times per week): 3 Current admission Treatment Interventions: Dysphagia Management Plan of Care Developed with: Patient;Family TREATMENT INTERVENTIONS: Therapy Diagnosis: Dysphagia, pharyngoesophageal phase Interventions Provided: Dysphagia Therapy (07435) $ Dysphagia Therapy (98070) Billed Units: 1 unit Skilled Interventions: Provided education related to a typical swallowing mechanism in a compare and contrast manner compared to this patient's current skill set. , Educated and advised patient / caregiver on texture and liquid consistency recommendations., Instructed patient / caregiver on recommended compensatory strategies to maximize safety with oral intake while maintaining nutrition, hydration and medication stability. Total Treatment Time (minutes): 20 Physician signature certifies treatment plan of care established above for the period of 12/29/2017 through 01/12/2018. SUBJECTIVE: Current Hospital Course: Chart reviewed and no significant medical updates relevant to therapy were noted Patient Report: I had choking episode this morning on oatmeal - educate/consult of safety precautions completed Please see discipline specific clinical documentation flowsheet for complete details for this therapy evaluation/treatment. SIGNATURE: Keren Mcadams [facility] NURSE PATIENT NAME: Luz Baca DATE: December 29, 2017 TIME: 3:33 PM PAGER: [phone] THERAPY NT Observed: 12/29/2017 Status: COMPLETED Source: [place] 2:39 PM CLIN[facility] OTHER CAMPUS REPOSITORY HNO ID: [id number] Author: Mary Nieto Service: Physical Therapy Author Type: Complex Director Type: Therapy (PT/OT/Speech/Resp) Filed: 12/29/2017 2:47 PM Note Text: Attestation signed by Elsy Lees at 12/31/2017 10:00 AM I reviewed and agree with the documentation corresponding to this therapy visit. SIGNATURE: Elsy Lees PT DATE: December 31, 2017 TIME: 10:00 AM Physical Therapy Treatment SERVICE DATE: 12/29/2017 SERVICE TIME: 1339 to 1410 ROOM: [place] [address] Recommended Discharge Disposition: Home PT Recommended Discharge Disposition Comments: Patient would benefit from home PT for home safety assessment and to increase strength/safety/tolerance with functional progression Anticipated Discharge Needs: Physical Assist at Home;Supervision at Home;Equipment Physical Assist at Home for: Transportation;Shopping;Self Care;Meals;Laundry;Cleaning Supervision at Home due to: Decreased safety awareness Recommended Discharge Equipment: No equipment needs anticipated PT Recommendations to Nursing: Ambulate with device;To bathroom;In halls;Transfer to/from chair;OOB for Meals;With assist of 1 person Device: Wheeled Walker (gait belt) PT 6 Clicks Score: 22 Precautions/Activity Restrictions: Diabetic;Diet Restrictions;Fluid Restrictions;Fall Risk;Lines/Tubes/Drains Precaution/Activity Restriction Comments: standard precautions ASSESSMENT : Patient pleasant and highly motivated to participate with PT. Patient successfully able to progress ambulation distance and perform standing exercises with no adverse effects. Patient is no more than CGA/SBA with all functional mobility and gait training. Patient with mild unsteadiness throughout. Educated patient with use of FWW at all times, patient agreeable. Continue to progress patient as able. Tolerated Full Session Physical Therapy Problem List: Safety Deficits;Decreased Activity Tolerance;Decreased Range Of Motion;Balance Impaired Patient /Caregiver Goals: Go Home (with Home PT and assist of family) Goals for Plan of Care: Able to perform HEP with: Modified Independent (w handout for fxnal LE strength x 20 reps) Transfer supine to/from sit with: Independent (to safely sit EOB without bed adjustments) Transfer sit to/from stand with: Stand By Assistance Ambulate with: Stand By Assistance Distance: 150 - 200 feet to safely navigate in home environment Device: Wheeled Walker Ambulate up and down steps with: Stand By Assistance Number of steps: 2 (to safely enter home) Device: (LRAD) Goal: Patient demonstrates fair+ to good balance with functional progression to decrease risk of falls Progress Toward Goals: Progressing as expected Rehab Potential: Good PLAN: Treatment Frequency (times per week): 4 Current admission Treatment Interventions: Education;Self Care / Home Management;Energy Conservation Training;Joint Mobility;Strengthening;Functional Mobility Training;Balance Training;Neuromuscular Re-education Plan of Care developed with: Patient TREATMENT INTERVENTIONS: Therapy Diagnosis: Reduced mobility-other Interventions Provided: Therapeutic Exercise (31458);Therapeutic Activity (64846);Gait Training (63496) Therapeutic Exercise (34472) Treatment Minutes: 10 1 unit Skilled Intervention(s): Instruction in standing therapeutic exercise for bilateral heel/toe raises, hip abduction/adduction, marching, and hamstring curls (not performed on R LE secondary to fatigue) x 10 reps each Verbal and tactile cuing provided for correct performance of exercises Therapeutic Activity (64177) Treatment Minutes: 6 0 units Skilled Intervention(s): Instruction in sit to stand technique with proper hand placement and body positioning at edge of bed/chair Instruction in stand to sit technique with lower extremities touching chair/bed and reaching back for surface Patient educated in importance of out of bed activity for rehabilitation and to prevent functional decline. Gait Training (98523) Treatment Minutes: 15 1 unit Skilled Intervention(s): Instruction in sequencing, gait pattern, reciprocating steps Instruction in correction of gait deviations, cues for upright posture, safety, and diaphragmatic breathing Instruction in use of equipment, cues for sequence and pattern Total Timed Code Treatment Minutes: 31 Total Treatment Time (minutes): 31 FUNCTIONAL G CODE: PT 6 Clicks Score: 22 (12/29/17 1400) $ Mobility: Walking and Moving Around Current Status (G8978): CJ (12/28/17916) $ Mobility: Walking and Moving Around Goal Status (G8979): CI (12/28/17916) Based on clinical assessment and the score on the 6 Clicks Functional Assessment Tool, the G code and corresponding severity modifiers are documented above. SUBJECTIVE: Current Hospital Course: Chart reviewed and no significant medical updates relevant to therapy were noted Patient Report: Patient sitting EOB upon arrival, agreeable and motivated to participate in PT. Patient states, I know you girls are here to help me, I will do whatever I can. Patient appropriate for PT per RNChantelle. Home Environment Patient Lives With: Family (daughter) Assistance Available: 24 Hour (assist provided by dtr/her fiance,grand dtr) Entry To Home: Stairs;Without Rail Number Of Stairs Into Home: 2 Number Of Stairs To Bed/Bath: 0 (first floor set up) Tub/Shower Type: tub/shower set up with grab bars Laundry: dtr does per laundromat Equipment Owned: Cane;Commode-Bedside;Grab Bars-Shower;Wheeled Walker;Home Oxygen;Other: See Comment (broken hospital bed) Prior Functional Level: Within Functional Limits;Required Assistance;History of Falls Assistance Required With: Cleaning;Laundry;Meals;Self Care;Shopping;Transportation Prior Functional Level Comments: One fall in last 6 month. Patient ind w amb short distances w FWW. Patient sleeps in hospital bed however hospital bed has springs that stick up. Daughter assists with getting her in/out of shower (stands to shower in tub), assists w bathing and dressing as patient needs. Patient is homebound except for MD appointments. Family completes all IADL's OBJECTIVE: CURRENT FUNCTIONAL STATUS: Current Functional Mobility Assist Level Additional Information Rolling Supine to Sit Other: See Comment (patient sitting EOB upon arrival) Sit to Supine Other: See Comment (patient returned to sitting EOB) Scooting Independent (forward/retro in bed) Sit to Stand Stand By Assistance (with FWW) x1 trial from EOB Stand to Sit Stand By Assistance (with FWW) Bed to Chair Toilet/Commode Gait Contact Guard Assistance (to SBA, reciprocating steps) Gait Device: Wheeled Walker Gait Distance (feet): 300'x1 Stairs Curb Step Car Transfer Gait Deviations Right Lower Extremity: Heel strike during initial stance decreased;Push-off during terminal stance decreased;Step length decreased Gait Deviations Left Lower Extremity: Heel strike during initial stance decreased;Push-off during terminal stance decreased;Step length decreased General Gait Deviations: Jane decreased;Step length decreased;Flexed trunk posture;Wide base of support Patient sitting EOB, denies symptoms at this time, call bear and personal belongings in reach, denies any further questions, concerns or needs from REGULATOR ASSEMBLER at this time. Gait belt in place for safety with all functional mobility. RN (Chantelle) aware of patient status. Discussed with patient calling for assistance 100% of the time. Balance: Static Sitting;Dynamic Sitting;Static Standing;Dynamic Standing Static Sitting Balance: Independent Dynamic Sitting Balance: Supervision Static Standing Balance: Stand By Assistance Dynamic Standing Balance: Stand By Assistance Please see discipline specific clinical documentation flowsheet for complete details for this therapy evaluation/treatment. SIGNATURE: Mary Nieto PTA PATIENT NAME: Luz Baca DATE: December 29, 2017 TIME: 2:39 PM PAGER/CONTACT #: [phone] CONSULT PROG Observed: 12/29/2017 Status: COMPLETED Source: [place] 1:28 PM CLINIC OTHER CAMPUS REPOSITORY HNO ID: [id number] Author: Max Reynolds Service: Infectious Disease Author Type: Physician Type: Consult Progress Note Filed: 12/29/2017 1:29 PM Note Text: INFECTIOUS DISEASE PROGRESS NOTE Patient Name: Luz Baca Date: 12/29/2017 ASSESSMENT: 1. Bibasilar pneumonia, concern is for aspiration and gram-negative component due to her recent hospitalization. MRSA nasal swab is negative. 2. Leukocytosis, likely due to #1. 3. Acute on chronic respiratory failure, which is improved likely due to #1. 4. Severe COPD. 5. Multiple antibiotic allergies. 6. Thrombocytopenia, which appears to be chronic. 7. Chronic kidney disease stage 4 8. Suspected pharyngeal and esophageal phase dysphagia PLAN: Continue meropenem await esophagogram INTERVAL HISTORY: ROS done with pt/RN and negative unless stated. No fevers chills nausea vomiting diarrhea. less cough and shortness of breath. MEDICATIONS: reviewed. Current hospital medications: [START ON 12/30/2017] furosemide 40 mg tab(s) (LASIX) 40 mg ORAL DAILY meropenem 1 g in D5W 100 mL MB+ (MERREM) 1 g INTRAVENOUS q 12 H aspirin, enteric coated 81 mg tab(s) (ASPIRIN, ENTERIC COATED) 81 mg ORAL DAILY predniSONE 20 mg tab(s) (DELTASONE) 20 mg ORAL DAILY dextrose 40 % 15 g 15 g ORAL PRN glucagon 1 mg injection (GLUCAGEN) 1 mg INTRAMUSCULAR PRN dextrose 50% in water 25 mL syringe 12.5 g INTRAVENOUS PRN simvastatin 40 mg tab(s) (ZOCOR) 40 mg ORAL AT BEDTIME gabapentin 600 mg cap(s) (NEURONTIN) 600 mg ORAL BID ipratropium-albuterol 3 mL nebulizer solution (DUONEB) 3 mL INHALATION q 4 H while awake colchicine 0.6 mg tab(s) 0.6 mg ORAL DAILY apixaban 5 mg tab(s) (ELIQUIS) 5 mg ORAL BID insulin lispro 10 Units injection (rapid acting) (HumaLOG) 10 Units SUBCUTANEOUS TID w MEALS insulin glargine 45 Units injection (long acting) (LANTUS) 45 Units SUBCUTANEOUS DAILY (8 AM) insulin glargine 30 Units injection (long acting) (LANTUS) 30 Units SUBCUTANEOUS AT BEDTIME guaiFENesin-dextromethorphan 100-10 mg/5 mL 5-10 mL oral liquid (ROBITUSSIN DM) 5-10 mL ORAL q 6 H PRN potassium chloride ER 10 mEq tab(s) (K-DUR, KLOR-CON) 10 mEq ORAL DAILY spironolactone 25 mg tab(s) (ALDACTONE) 25 mg ORAL DAILY pantoprazole DR 40 mg tab(s) (PROTONIX) 40 mg ORAL DAILY (6 AM) isosorbide mononitrate ER 30 mg tab(s) (IMDUR) 30 mg ORAL DAILY nitroglycerin sublingual 0.4 mg tab(s) (NITROQUICK) 0.4 mg SUBLINGUAL q 5 MIN PRN 0.9% NaCl 3-5 mL 3-5 mL INTRAVENOUS q 12 H benzonatate 100 mg cap(s) (TESSALON PERLE) 100 mg ORAL TID insulin lispro injection (rapid acting) (HumaLOG) SUBCUTANEOUS w MEALS insulin lispro injection (rapid acting) (HumaLOG) SUBCUTANEOUS AT BEDTIME PHYSICAL EXAM: Vital signs: BP 117/59 Pulse 65 Temp 36.3 ?C (97.3 ?F) (Oral) Resp 18 Ht 172.7 cm (5' 8) Wt 105.5 kg (232 lb 9.4 oz) SpO2 98% BMI 35.36 kg/m2 General: alert, oriented, NAD Lungs: bilaterally Coarse breath sounds better Heart: regular rate and rhythm Abdomen: soft, non tender, non distended, BS+ Extremities: no swollen joints Skin: no rash IV sites - wnl Lab data: reviewed Recent Labs 12/29/17 0312 12/28/17 0309 12/27/17 0600 WBC 9.15 9.78 11.68* HB 12.0 12.8 13.0 PLT 104* 112* 126* NA 140 141 137 K 5.1 5.1 5.0 CO2 36* 35* 33* BUN 65* 70* 70* CREAT 1.52* 1.61* 1.56* Microbiology data: reviewed Imaging data: reviewed Max Reynolds MD Pager: CONSULT Observed: 12/29/2017 Status: COMPLETED Source: [place] 12:56 PM CLINIC OTHER CAMPUS REPOSITORY HNO ID: [id number] Author: Mara Hernandez Service: Gastroenterology Author Type: Physician Type: Consults Filed: 12/30/2017 7:19 AM Note Text: GASTROENTEROLOGY CONSULT NOTE PATIENT NAME: Luz Baca SERVICE DATE: December 29, 2017 SERVICE TIME: 12:56 PM PRIMARY CARE PHYSICIAN: Jameson Kamara MD ATTENDING PHYSICIAN: Peyman Guerrero MD REASON FOR ADMISSION: Pulmonary infiltrates REASON FOR CONSULTATION: Dysphagia / Aspiriation HPI: This is a 77 year old female with a past medical history significant for atrial fibrillation, CAD s/p stenting on Eliquis and Aspirin, diabetes, HTN, HH, hypertrophic obstructive cardiomyopathy, CKD - stage IV, obesity and sleep apnea who presented to [facility] on 12/23/2017 with pneumonia. Due to the patients complaints of a long standing history of dysphagia as well as concern for aspiration an MBS and esophagram were obtained and are suggestive of a dilated esophagus with minimal primary peristaltic wave and a narrowing at the gastroesophageal junction. Endoscopy evaluation has been recommended therefore a GI consult has been requested. The patient is without complaints of abdominal pain. She does report intermittent nausea, vomiting and a sour stomach. Does take Pantoprazole daily with prn vinegar for a sour stomach. Ms. Baca explains that she has had noticeable dysphagia for 2+ years. Finds trouble swallowing with both solids and liquids. Has had to induce vomiting to clear her food at times and feels as if this difficulty has gotten worse over time. Her appetite has been poor and reports a weight loss as her dentures no longer fit right. Unable to quantify her weight loss. Denies previous endoscopy evaluation. Bowel pattern varies from constipation to diarrhea but does report some type of BM daily. The patient was hospitalized in [place] for what sounds to be a lower GI bleeding episode - however details are not known. She has been taking Eliquis BID. Denies ASA or NSAID use. ALLERGIES: Bactrim Latex Rash, itching PCN Rash, itching Tetracycline Emesis, diarrhea Atorvastatin Rash Codeine Numbness Dilaudid Meperidine Pentazocine Pioglitazone Propoxyphene PAST MEDICAL HISTORY: Arthritis Atrial fibrillation CAD Cardiomegaly CKD - stage IV COPD Depression Diabetes Diabetic neuropathy GERD Gout HH Hypertrophic obstructive cardiomyopathy HTN HLD Morbid obesity Pneumonia Sleep apnea SVT PAST SURGICAL HISTORY: Septal myectomy and CABG x 2 Left breast nodule Hysterectomy Perianal abscess drained Cholecystectomy Skin lesions removed Cardiac stenting Defibrillator MEDICATIONS: Prior to Admission Medications: Prescriptions Prior to Admission: colchicine (COLCRYS) 0.6 mg tablet Take 0.6 mg by mouth once daily. Disp: Rfl: 12/23/2017 at 0900 apixaban (ELIQUIS) 5 mg tab(s) Take 5 mg by mouth twice daily. Disp: Rfl: 12/23/2017 at 0900 furosemide (LASIX) 40 mg tablet Take 60 mg (1.5 tablets) by mouth every morning and 40 mg (1 tablet) every day around noon. Disp: Rfl: 12/23/2017 at 0900 insulin aspart U-100 (NOVOLOG FLEXPEN U-100 INSULIN) 100 unit/mL inpn Inject 15 Units subcutaneously three times daily with meals. Disp: Rfl: 12/23/2017 at 0900 insulin glargine (LANTUS SOLOSTAR U-100 INSULIN) 100 unit/mL (3 mL) inpn Inject 60 Units subcutaneously every morning. Disp: Rfl: 12/23/2017 at 0900 insulin glargine (LANTUS SOLOSTAR U-100 INSULIN) 100 unit/mL (3 mL) inpn Inject 40 Units subcutaneously daily at bedtime. Disp: Rfl: 12/22/2017 at 2200 isosorbide mononitrate ER (IMDUR) 30 mg 24 hr tablet Take 30 mg by mouth once daily. Disp: Rfl: 12/23/[address] (PROTONIX) 40 mg tablet Take 40 mg by mouth once daily. Disp: Rfl: 12/23/2017 at 0900 [] predniSONE (DELTASONE) 10 mg tablet Taper: 40mg PO daily x 3 days, 30mg PO daily x 3 days, 20mg PO daily x 3 days, 10mg PO daily x 3 days, then stop. Disp: Rfl: 12/23/2017 at 0900 simvastatin (ZOCOR) 40 mg tablet Take 40 mg by mouth every morning. Disp: Rfl: 12/23/2017 at 0900 benzonatate (TESSALON PERLE) 100 mg capsule Take 100 mg by mouth three times daily as needed. Disp: Rfl: 12/23/2017 at 0900 spironolactone (ALDACTONE) 25 mg tablet Take 1 tablet by mouth once daily. Disp: Rfl: 12/23/2017 at 0900 [] nystatin (MYCOSTATIN) 100,000 unit/mL suspension Take 2 mL by mouth four times daily for 7 days. SWISH AND SWALLOW 2 ML 4 TIMES PER DAY. Disp: 56 mL Rfl: 0 12/23/2017 at 0900 ipratropium-albuterol (DUONEB) 0.5 mg-3 mg(2.5 mg base)/3 mL nebu Inhale 3 mL as instructed every 4 hours as needed. Disp: 180 Vial Rfl: 3 12/23/2017 at Unknown time guaiFENesin-dextromethorphan (ROBITUSSIN DM) 100-10 mg/5 mL syrup Take 5-10 mL by mouth every 6 hours as needed for Cough. Disp: 118 mL Rfl: 0 12/23/2017 at 0900 nitroglycerin sublingual (NITROQUICK) 0.4 mg SL tablet Dissolve 1 tablet under the tongue every 5 minutes as needed. Disp: 1 Bottle of 25 Rfl: 0 Unknown at Unknown time albuterol HFA (VENTOLIN HFA) 90 mcg/actuation inhaler Inhale 2 Puffs as instructed every 4 hours as needed. Disp: 1 Inhaler Rfl: 1 12/22/2017 at Unknown time OXYGEN, HOME THERAPY, Inhale 2.5 L/min as instructed as directed. Disp: Rfl: Unknown at Unknown time albuterol (PROVENTIL) 5 mg/mL nebu Inhale 0.5 mL as instructed one time only for 1 dose. 1 DOSE NOW - BACK OFFICE. PLACE 0.5 ML PER DROPPER AND 2.5 ML OF NORMAL SALINE INTO RESERVOIR. Disp: 1 mL Rfl: 0 12/09/2017 gabapentin (NEURONTIN) 300 mg capsule Take 2 capsules by mouth three times daily for 30 days. (Patient taking differently: Take 600 mg by mouth twice daily. ) Disp: Rfl: 12/09/2017 Current Hospital Medications: Current hospital medications: [START ON 12/30/2017] furosemide 40 mg tab(s) (LASIX) 40 mg ORAL DAILY meropenem 1 g in D5W 100 mL MB+ (MERREM) 1 g INTRAVENOUS q 12 H aspirin, enteric coated 81 mg tab(s) (ASPIRIN, ENTERIC COATED) 81 mg ORAL DAILY predniSONE 20 mg tab(s) (DELTASONE) 20 mg ORAL DAILY dextrose 40 % 15 g 15 g ORAL PRN glucagon 1 mg injection (GLUCAGEN) 1 mg INTRAMUSCULAR PRN dextrose 50% in water 25 mL syringe 12.5 g INTRAVENOUS PRN simvastatin 40 mg tab(s) (ZOCOR) 40 mg ORAL AT BEDTIME gabapentin 600 mg cap(s) (NEURONTIN) 600 mg ORAL BID ipratropium-albuterol 3 mL nebulizer solution (DUONEB) 3 mL INHALATION q 4 H while awake colchicine 0.6 mg tab(s) 0.6 mg ORAL DAILY apixaban 5 mg tab(s) (ELIQUIS) 5 mg ORAL BID insulin lispro 10 Units injection (rapid acting) (HumaLOG) 10 Units SUBCUTANEOUS TID w MEALS insulin glargine 45 Units injection (long acting) (LANTUS) 45 Units SUBCUTANEOUS DAILY (8 AM) insulin glargine 30 Units injection (long acting) (LANTUS) 30 Units SUBCUTANEOUS AT BEDTIME guaiFENesin-dextromethorphan 100-10 mg/5 mL 5-10 mL oral liquid (ROBITUSSIN DM) 5-10 mL ORAL q 6 H PRN potassium chloride ER 10 mEq tab(s) (K-DUR, KLOR-CON) 10 mEq ORAL DAILY spironolactone 25 mg tab(s) (ALDACTONE) 25 mg ORAL DAILY pantoprazole DR 40 mg tab(s) (PROTONIX) 40 mg ORAL DAILY (6 AM) isosorbide mononitrate ER 30 mg tab(s) (IMDUR) 30 mg ORAL DAILY nitroglycerin sublingual 0.4 mg tab(s) (NITROQUICK) 0.4 mg SUBLINGUAL q 5 MIN PRN 0.9% NaCl 3-5 mL 3-5 mL INTRAVENOUS q 12 H benzonatate 100 mg cap(s) (TESSALON PERLE) 100 mg ORAL TID insulin lispro injection (rapid acting) (HumaLOG) SUBCUTANEOUS w MEALS insulin lispro injection (rapid acting) (HumaLOG) SUBCUTANEOUS AT BEDTIME FAMILY HISTORY: Sisters with IBS history Father - lung cancer - at the age of 71 SOCIAL HISTORY: Marital status: Children: One Alcohol use: Denies Tobacco use: Remote. Quit in 1960. Previously smoked 2.5 packs per day for 43 years REVIEW OF SYSTEMS: CONSTITUTIONAL: No fevers, chills, night sweats, unintended weight loss CARDIOVASCULAR: No chest pain, dyspnea, palpitations, orthopnea, PND, ankle edema PULM: (+) dyspnea GI: Per HPI : No new urinary complaints, including; dysuria, gross hematuria or pyuria NEURO: No dizziness, lightheadedness or vertigo MUSC/SKEL: (+) generalized weakness PSYCH: No concerns regarding depression, anxiety or panic INTEGUMENTARY: No new skin changes (rash, new or changing mole, new growth) PHYSICAL EXAM: Patient Vitals for the past 24 hrs: BP Temp Temp src Pulse Resp SpO2 Weight 12/29/17 1129 117/59 36.3 ?C (97.3 ?F) Oral 65 18 98 % - 12/29/17 0717 129/92 36.3 ?C (97.3 ?F) Oral 64 18 99 % - 12/29/17 0409 (!) 121/49 36.3 ?C (97.3 ?F) Oral 62 18 97 % - 12/28/17 2356 117/68 36.4 ?C (97.5 ?F) Oral 63 18 99 % - 12/28/17 1952 132/59 36.5 ?C (97.7 ?F) Oral 64 20 99 % - 12/28/17 1548 127/59 36.5 ?C (97.7 ?F) - (!) 59 - 98 % - 12/28/17 1400 - - - - - - 105.5 kg (232 lb 9.4 oz) Body mass index is 35.36 kg/(m2). GENERAL: Alert AND oriented x 3. Cooperative. NAD. No dentition. EYES: No scleral icterus SKIN: [place] in color. No jaundice LUNGS: Diminished to auscultation anteriorly. Expiratory wheezes. CARDIAC: RRR ABDOMEN: BS x 4. Abdomen obese, significant upper abdominal hernia, soft, non tender, non distended, no palpable masses or organomegaly. No guarding or rebound tenderness elicited EXTREMITIES: Vascular changes to BLE LABS: Diagnostic tests reviewed for today's visit: CBC, Coags, BMP, Mg, Phos Recent Labs 12/29/17 0312 12/28/17 0309 12/27/17 0600 WBC 9.15 9.78 11.68* HB 12.0 12.8 13.0 HCT 38.7 42.0 42.2 PLT 104* 112* 126* NA 140 141 137 K 5.1 5.1 5.0 CHLOR 99 99 96* CO2 36* 35* 33* BUN 65* 70* 70* CREAT 1.52* 1.61* 1.56* GLUC 145* 161* 235* CA 8.3* 9.2 9.2 MG 2.5* 2.7* 2.5* RADIOLOGY 12/21/2017 Echo - Technically difficult exam due to body habitus and COPD. - Exam indication: s/p myectomy - The left ventricle is normal in size. There is mild left ventricular hypertrophy. Left ventricular systolic function is mildly decreased. EF = 50 ? 5% (visual est.) Grade III left ventricular diastolic dysfunction. - The right ventricle is dilated. Right ventricular systolic function is mildly decreased. - The left atrial cavity is moderately dilated. - The right atrial cavity is dilated. - There is moderate (2+ - 3+) tricuspid valve regurgitation. - Estimated right ventricular systolic pressure is 78 mmHg consistent with moderately severe pulmonary hypertension. Estimated right atrial pressure is 10 mmHg. - Definity contrast could not be administered d/t unavailability of staff. - s/p myectomy: LVOT gradient at rest 6 mmHg, trivial-1+ MR. Patient unable to valsalva. - Exam was compared with the prior echocardiographic exam performed on 09/23/2010. LV function is normal on this study, and the patient appears to be in NSR (was in AF with RVR on prior study) 12/23/2017 CXR Opacity in the left lung base is suggestive of a small left pleural effusion, atelectasis and/or consolidation. Mild right basilar atelectasis. No pneumothorax. There is prominence of the pulmonary vasculature is suggestive of pulmonary congestion/edema. 12/29/2017 MBS/Esophagram Esophagus: Patient was able to swallow barium without apparent difficulty initially. ?It passed through a moderately dilated esophagus to level the gastroesophageal junction. ?Suggestion of some narrowing at the level gastroesophageal junction. ?No definite primary peristaltic wave was seen. The esophagus was quite dilated and tortuous in the cervical region. Stomach: Contrast passed into the stomach and into the small bowel IMPRESSION: Esophagus very dilated with no apparent primary peristaltic wave. ?Did appear to be some narrowing at the gastroesophageal junction. ?Correlation with endoscopy recommended No aspiration was seen MOST RECENT EGD / COLONOSCOPY Have been completed is unclear of details surrounding procedures. Believes they were completed at [facility] in [facility] ASSESSMENT 1. Chronic worsening dysphagia 2. Abn MBS/Esophagram - Dilated esophagus with narrowing at the GE junction 3. Chronic thrombocytopenia 4. Pneumonia with suspicion for aspiration / Acute exacerbation COPD / MARLA 5. A. Fib / CAD hx of CABG x 2 and stenting / CHF 6. Morbid obesity PLAN - Recommend EGD evaluation however the earliest this could be completed will be on 12/31/2017 to allow for clearance of Eliquis and Aspirin - discussed this with Dr. Guerrero who is in agreement - Stop Eliquis and Aspirin (last dose 12/29) - Atb per ID (Meropenem) - Continue Pantoprazole 40 mg po daily - Carb controlled, 4 gram sodium diet with 1400 ml fluid restriction - Daily BMP, CBC and Magnesium - Attempt to obtain records from [facility] in [place] Thank you for the opportunity to participate in the care of this patient. I will continue to follow with you. SIGNATURE: Mandy Yanez CNP DATE: December 29, 2017 TIME: 12:56 PM Patient seen and examined. Discussed with mid level provider. Aguilera findings confirmed. Plan as outlined. Pt w dysphagia and suggestion of narrowing at GE junction. EGD w dilatation later this week after antiplatelet therapy has metabolized. Mara Hernandez MD December 30, 2017 7:18 AM XR ESOPHAGRAM Observed: 12/29/2017 Status: F Source: [place] 11:32 AM [facility] REPOSITORY * * *Final Report* * * DATE OF EXAM: Dec 29 2017 11:32AM MDX [id number] - XR ESOPHAGRAM / PROCEDURE REASON: Dysphagia * * * * Physician Interpretation * * * * Esophagram HISTORY: Indication: Dysphagia TECHNIQUE: Fluoroscopic Radiation Summary: Plane A, Air Kerma: 23.0 mGy Dose Area Product (DAP): 5064.0 mGy*cmS2 Fluoro time: 1:34 min:sec Images obtained: Multiple spot film images under fluoroscopic guidance. Comparison: NONE. RESULT: Findings: Esophagus: Patient was able to swallow barium without apparent difficulty initially. It passed through a moderately dilated esophagus to level the gastroesophageal junction. Suggestion of some narrowing at the level gastroesophageal junction. No definite primary peristaltic wave was seen. The esophagus was quite dilated and tortuous in the cervical region. Stomach: Contrast passed into the stomach and into the small bowel IMPRESSION: Esophagus very dilated with no apparent primary peristaltic wave. Did appear to be some narrowing at the gastroesophageal junction. Correlation with endoscopy recommended No aspiration was seen Service Delivery Supervisor: PSCB Transcribe Date/Time: Dec 29 2017 12:01P Dictated by : ELLA FRY DO This examination was interpreted and the report reviewed and electronically signed by: ELLA FRY DO on Dec 29 2017 12:02PM EST [id number] Observed: 12/29/2017 Status: COMPLETED Source: [place] 11:28 AM [facility] REPOSITORY HNO ID: [id number] Author: Peyman Guerrero Service: Hospital Medicine Author Type: Physician Type: Progress Notes Filed: 12/29/2017 11:37 AM Note Text: HOSPITAL MEDICINE PROGRESS NOTE Name: Luz Baca SERVICE DATE: 12/29/2017 SERVICE TIME: 11:29 AM LOCATION / ROOM: [place] [id number] Hospital Medicine/Primary Attending: Peyman guerrero MD NIGHT COVERAGE BETWEEN 5.30P-7.30A Page [id number] ASSESSMENT AND PLAN HCAP (healthcare-associated pneumonia), suspected aspiration PNA with episodes of choking food/liquids Feels slowly improving, c/o mild sob with activity - started with IV Vanco and Aztreonam initially and changed to Cefepime later - blood cx- no growth, sputum culture- Few Normal respiratory mitra present , negative nasal MRSA - consulted ID due to recurrent admission/HCAP for antibiotic choice, changed to Meropenum IV - consulted speech therapy, suspicion of aspiration PNA - MBS done - poor esophageal emptying while in an upright posture; Retrograde flow is noted below the level of the pharyngoesophageal segment. no occurrence of laryngeal penetration /aspiration is noted at this time. - consult GI; Will get an Esophagogram - duoneb q4hr + prn - Mucinex BID - aspiration precautions - Nursing Recommendations: Reinforce use of swallowing strategies;Utilize bed in chair position - Diet Recommendations: Regular Consistency;Thin liquids Acute on chronic combined systolic and diastolic CHF (congestive heart failure) Acute diastolic heart failure (LVEF 50%) HOCM- Status post septal myomectomy at the time of CABG 2003 CAD Status post CABG ?2, 07/18/04, VU to LAD, SVG to PDA; PCI ?6 RCA, 2014 PCI ?3 2014 Status post myocardial perfusion imaging stress test 08/11/17 with possible prior apical infarct and no ischemia, EF 50%. ICD - most likely some fluid overload - Pro BNP 2600 - cont with fluid restriction - Last Echo 12/21/2017 LVEF 50% with Grade 3 diastolic dysfunction - St Rob AICD / PM - minimal rate at 60 - nml function on check today. Result on chart. - negative 4.8 liter so far - consulted Dr. Yeung. - continue spironolactone - continue statin - continue apixaban for anticoagulation - resumed aspirin due to multi-vessel PCI in the past - change lasix to 40 mg po daily ? She can follow up as an outpatient with Dr. Cardona on discharge ? Acute on chronic respiratory failure with hypoxia? - chronic home O2 with 2.5 l/min NC - supplement as needed - back to base line ? COPD with acute exacerbation? - Given on dose in ER with Solumedrol - cont with treatment as above - wean steroids slowly ? Atrial fibrillation - Not on any BB - Cont Eliquis - Rate controlled - on telemetry monitoring noticed to be low 40's in HR - PM/ICD checked, normal function ?? Diabetes mellitus due to underlying condition, uncontrolled, with stage 3 chronic kidney disease, with long-term current use of insulin On amaryl and sitagliptan Will start sliding scale option 1 coverage Follow accuchecks HgbA1c: >15 (Oct 2707/2018) ?? Carotid artery disease H/O of CABGx2 (DEBROAH-LAD, SVG-PDA ) in 2004 On ezetimibe, simvastatin, metoprolol, benazepril ?? Essential hypertension On metoprolol, norvasc, benazepril will titrate ?? GERD (gastroesophageal reflux disease) On nexium - protonix here ?? Hyperlipidemia On ezetimibe and simvastatin LDL 61 ?? Sleep apnea Should wears CPAP at home But not used for years Last sleep study in possible 2008 ?? Obesity Diet/exercise/weightloss discussed with patient ? SUBJECTIVE INTERVAL HPI: Feels improving slowly, no fever, chills, cp nor palpitations. Reported choking food this morning, had severe cough which is better now Stable vitals MEDICATIONS: Reviewed Current Facility-Administered Medications: meropenem 1 g in D5W 100 mL MB+ (MERREM) 1 g INTRAVENOUS q 12 H Max Rodolfo 1 g at 12/29/17 0825 aspirin, enteric coated 81 mg tab(s) (ASPIRIN, ENTERIC COATED) 81 mg ORAL DAILY Jose C Yeung 81 mg at 12/28/17 0836 predniSONE 20 mg tab(s) (DELTASONE) 20 mg ORAL DAILY Radha Adams) Thuestad 20 mg at 12/29/17 0822 dextrose 40 % 15 g 15 g ORAL PRN Leandro Kauffman MD Or glucagon 1 mg injection (GLUCAGEN) 1 mg INTRAMUSCULAR PRN Leandro Kauffman MD Or dextrose 50% in water 25 mL syringe 12.5 g INTRAVENOUS PRN Leandro Kauffman MD simvastatin 40 mg tab(s) (ZOCOR) 40 mg ORAL AT BEDTIME Radha Adams) Thuestad 40 mg at 12/28/172014 gabapentin 600 mg cap(s) (NEURONTIN) 600 mg ORAL BID [place] Adams) Thuestad 600 mg at 12/29/17 0822 ipratropium-albuterol 3 mL nebulizer solution (DUONEB) 3 mL INHALATION q 4 H while awake [place] Adams) Thuestad 3 mL at 12/29/17 1010 colchicine 0.6 mg tab(s) 0.6 mg ORAL DAILY Radha Ebonie Adams) Thuestad 0.6 mg at 12/29/17 0822 apixaban 5 mg tab(s) (ELIQUIS) 5 mg ORAL BID Radha Adams) Thuestad 5 mg at 12/29/17 0822 insulin lispro 10 Units injection (rapid acting) (HumaLOG) 10 Units SUBCUTANEOUS TID w MEALS Radha Adams) Thuestad 10 Units at 12/29/17 0822 insulin glargine 45 Units injection (long acting) (LANTUS) 45 Units SUBCUTANEOUS DAILY (8 AM) Radha Loomis Md Thuestad 45 Units at 12/29/17 0825 insulin glargine 30 Units injection (long acting) (LANTUS) 30 Units SUBCUTANEOUS AT BEDTIME Radha Adams) Thuestad 30 Units at 12/28/172015 guaiFENesin-dextromethorphan 100-10 mg/5 mL 5-10 mL oral liquid (ROBITUSSIN DM) 5-10 mL ORAL q 6 H PRN Radha Adams) Thuestad 10 mL at 12/29/17 0427 potassium chloride ER 10 mEq tab(s) (K-DUR, KLOR-CON) 10 mEq ORAL DAILY [place] Ebonie Adams) Thuestad 10 mEq at 12/29/17 0822 spironolactone 25 mg tab(s) (ALDACTONE) 25 mg ORAL DAILY Radha Adams) Thuestad 25 mg at 12/29/[address] 40 mg tab(s) (PROTONIX) 40 mg ORAL DAILY (6 AM) Radha Adams) Thuestad 40 mg at 12/29/17 0509 isosorbide mononitrate ER 30 mg tab(s) (IMDUR) 30 mg ORAL DAILY Radha Ebonie Adams) Thuestad 30 mg at 12/29/17 0822 nitroglycerin sublingual 0.4 mg tab(s) (NITROQUICK) 0.4 mg SUBLINGUAL q 5 MIN PRN Radha Adams) Thuestad 0.9% NaCl 3-5 mL 3-5 mL INTRAVENOUS q 12 H [place] Ebonie Adams) Thuestad 5 mL at 12/29/17 0825 furosemide 40 mg injection (LASIX) 40 mg INTRAVENOUS DAILY [place] Adams) Thuestad 40 mg at 12/29/17 0822 benzonatate 100 mg cap(s) (TESSALON PERLE) 100 mg ORAL TID Hareesh Singam 100 mg at 12/29/17 0821 insulin lispro injection (rapid acting) (HumaLOG) SUBCUTANEOUS w MEALS Caroline (Audio Production Engineer) Garcia 2 Units at 12/29/17 0825 insulin lispro injection (rapid acting) (HumaLOG) SUBCUTANEOUS AT BEDTIME Caroline (Audio Production Engineer) Garcia 4 Units at 12/28/172014 OBJECTIVE PHYSICAL EXAM: BP 129/92 Pulse 65 Temp (Src) 97.3 (Oral) Resp 18 Ht 5' 8 (1.73m) Wt 232 lb 9.4 oz (105.5kg) SpO2 98% BMI 35.37 kg/(m2). GENERAL: Alert, no distress, cooperative, obese SKIN: Skin color, texture, turgor normal. No rashes or lesions. EYES: PERRLA, EOMI OROPHARYNX: Lips, mucosa, and tongue normal. Teeth and gums normal. Oropharynx normal. NECK: No jugulovenous distention, No carotid bruits, Carotid pulse normal contour, Supple LUNGS: Lungs clear to auscultation, Good diaphragmatic excursion CARDIAC: Normal S1 and S2; no rubs, murmurs, or gallops ABDOMEN: Abdomen soft, non-tender, BS normal, No masses or organomegaly EXTREMITIES: Extremities normal, no deformities, edema, clubbing or skin discoloration. Good capillary refill., No ulcers NEURO: Reflexes normal and symmetric. Sensation grossly intact, Cranial nerves II-XII intact PULSES: 2+ radial, 2+ carotid DATA: Diagnostic tests reviewed for today's visit: CBC, Coags, BMP, Mg, Phos Recent Labs 12/29/17 0312 12/28/17 0309 12/27/17 0600 WBC 9.15 9.78 11.68* HB 12.0 12.8 13.0 HCT 38.7 42.0 42.2 PLT 104* 112* 126* NA 140 141 137 K 5.1 5.1 5.0 CHLOR 99 99 96* CO2 36* 35* 33* BUN 65* 70* 70* CREAT 1.52* 1.61* 1.56* GLUC 145* 161* 235* CA 8.3* 9.2 9.2 MG 2.5* 2.7* 2.5* VTE Prophylaxis: Patient is already anti-coagulated. Disposition: Home with [facility] PT Plan of care discussed with: Patient and [employer] consultant SIGNATURE: Peyman guerrero MD DATE: December 29, 2017 TIME: 11:34 AM CBC Collected: 12/29/2017 Status: F Source: [place] 3:12 AM CLINIC OTHER CAMPUS REPOSITORY TYPE CODE TESTS RESULT OUT OF REFERENCE UNITS RANGE LAB WBC 3.70-11.00 k/uL WBC 9.15 LAB RBC 3.90-5.20 m/uL RBC 4.04 LAB HGB 11.5-15.5 g/dL Hemoglobin 12.0 LAB HCT 36.0-46.0 % Hematocrit 38.7 LAB MCV 80.0-100.0 fL MCV 95.8 LAB MCH 26.0-34.0 pG MCH 29.7 LAB MCHC 30.5-36.0 g/dL MCHC 31.0 LAB RDWCV 11.5-15.0 % RDW-CV High 15.4 LAB PLTCT 150-400 k/uL Low Platelet Count 104 LAB MPV 9.0-12.7 fL MPV 9.6 Performed By: #### CBC, BMP, MG1 #### [facility] [address] [facility] [phone] BASIC METABOLIC PANL Collected: 12/29/2017 Status: F Source: [place] 3:12 AM [facility] OTHER CAMPUS REPOSITORY TYPE CODE TESTS RESULT OUT OF REFERENCE UNITS RANGE LAB GLU 74-99 mg/dL High Glucose 145 Result Comment: The [place] [employer] (ADA) provides guidance for cutoff values for fasting glucose and random glucose. The ADA defines fasting as no caloric intake for at least 8 hours. Fas ting plasma glucose results between 100 to 125 mg/dL indicate increased risk for diabetes (prediabetes). Fasting plasma glucose results greater than or equal to 126 mg/dL meet the criteria for diagnosis of diabetes. In the absence of unequivocal hyperglycemia, results should be confirmed by repeat testing. In a patient with classic symptoms of hyperglycemia or hyperglycemic crisis, random plasma glucose results greater than or equal to 200 mg/dL meet the criteria for diagnosis of diabetes. Reference: Standards of Medical Care in Diabetes 2016, [place] [employer]. Diabetes Care. 2016.39(Suppl 1). LAB BUN 7-21 mg/dL BUN High 65 LAB CRET 0.58-0.96 mg/dL Creatinine High 1.52 LAB NA 136-144 mmol/L Sodium 140 LAB K 3.7-5.1 mmol/L Potassium 5.1 LAB CL 97-105 mmol/L Chloride 99 LAB CO2 22-30 mmol/L CO2 High 36 LAB AGAP 9-18 mmol/L Low Anion Gap 5 LAB CA 8.5-10.2 mg/dL Low Calcium, Total 8.3 LAB GFRAA eGFR- Amer. 40 LAB GFRNAA . eGFR-All Other Races 33 Result Comment: eGFR (Estimated GFR) Units of measure: mL/min/1.73 meters squared eGFR is derived from the reexpressed MDRD Study equation using the following parameters: serum creatinine, age, gender and race. The creatinine assay has been calibrated to be traceable to IDMS. An eGFR <60 mL/min/1.73m2 for >3 months is consistent with chronic kidney disease. Refer to KDOQI guidelines for clinical interpretation. In patients with unstable renal function, e.g. those with acute kidney injury, the eGFR may not accurately reflect actual GFR. Performed By: #### CBC, BMP, MG1 #### [facility] [address] [facility] [phone] MAGNESIUM Collected: 12/29/2017 Status: F Source: [place] 3:12 AM CLINIC OTHER CAMPUS REPOSITORY TYPE CODE TESTS RESULT OUT OF REFERENCE UNITS RANGE LAB MG 1.7-2.3 mg/dL High Magnesium 2.5 Performed By: #### CBC, BMP, MG1 #### [facility] [address] [facility] [phone] THERAPY NT Observed: 12/28/2017 Status: COMPLETED Source: [place] 4:18 PM CLINIC OTHER CAMPUS REPOSITORY HNO ID: [id number] Author: Shakila OsheaOt/Magali Busch Service: Occupational Therapy Author Type: Occupational Therapist Type: Therapy (PT/OT/Speech/Resp) Filed: 12/29/2017 5:49 AM Note Text: Occupational Therapy Evaluation SERVICE DATE: 12/28/2017 SERVICE TIME: 1320 to 1416 (split session for RT; [id number], [id number]) ROOM: [place] [address] Recommended Discharge Disposition: Home OT Recommended Discharge Disposition Comments: To assess safety in home environment and to increase safety and independence during ADLs and functional mobility as pt reports of recent falls Anticipated Discharge Needs: Physical Assist at Home;Supervision at Home;Equipment Physical Assist at Home for: Transportation;Shopping;Self Care;Meals;Laundry;Cleaning Supervision at Home due to: Decreased safety awareness Recommended Discharge Equipment: Shower Chair;Sock Aide OT Recommendations to Nursing: To Bathroom for ADL?s /and or Toileting;ADL?s in chair;OOB for meals;Edge of bed ADL?s;With assist of 1 person;Transfer to Chair Equipment: Wheeled Walker (gait belt) OT 6 Clicks Score: 23 Precautions/Activity Restrictions: Diabetic;Diet Restrictions;Fluid Restrictions;Fall Risk;Lines/Tubes/Drains Precaution/Activity Restriction Comments: standard precautions ASSESSMENT: Tolerated Full Session Pt presents with impaired functional mobility, ADL performance, strength and functional activity tolerance (with c/o fatigue), impacting her ability to function without assist from caregivers. Requires verbal cues and repetitive practice for safety with wheeled walker during functional transfers/mobility, however, demonstrates good carryover. Pt requires Supervision-CGA for functional transfers/mobility, standing grooming at sink, lower body dressing with adaptive equipment and toileting. Pt verbalizes good understanding of energy conservation techniques. Pt would benefit from a Home OT assessment due to pt report of recent falls and to further increase safety and independence during ADLs and functional mobility in the home environment. Pt has met all inpatient OT goals and denies questions/concerns for home going, therefore, pt to be discharged from OT services at this time. Occupational Therapy Problem List: Safety Deficits;Decreased Strength;Impaired Self Care Patient /Caregiver Goals: Go Home Goals for Plan of Care: Grooming with: Supervision (at sink) Lower Body Dressing with: Stand By Assistance Chair Transfer with: Stand By Assistance Toilet Transfer with: Stand By Assistance Demonstrate Competence With Education with: (pt will verbalize good understanding of ECWS techniques) Progress Toward Goals: Progressing as expected- all goals MET Rehab Potential: Good PLAN: Treatment Frequency (times per week): Discontinue Therapy Services Reasons Therapy Services Discontinued: Goals met Current admission Treatment Interventions: Education;Self Care / Home Management;Energy Conservation Training;Functional Mobility Training Plan of Care developed with: Patient TREATMENT INTERVENTIONS: Interventions Provided: Evaluation;Therapeutic Activity (16755);Self Retirement Management (01262) $ Evaluation-Low (36837) Billed Units: 1 unit Therapeutic Activity (88564) Treatment Minutes: 9 1 unit Skilled Intervention(s): Instructed, verbally/visually cued and facilitated pt in sit to stand technique with proper hand placement and body positioning at edge of bed. Pt further instructed in safe technique with proper hand placement, as pt continued to pull up on walker handle with one hand. Pt instructed and verbally cued in staying within frame of walker, O2 line management and safe/proper way to navigate around obstacles during functional mobility to bathroom, sink and bed. Pt educated in importance of bringing walker back to toilet in bathroom, as pt attempts to abandon walker. Instructed, verbally/visually cued and facilitated in stand to sit technique with lower extremities touching bed and reaching back for surface. Pt further educated in safe technique for stand to sit transfer with proper hand placement due to pt holding onto walker handles during first sit to stand. Self Retirement Management (50585) Treatment Minutes: 15 1 unit Skilled Intervention(s): Pt educated in role of OT. Pt educated in importance of out of bed activity (active participation in daily care, sitting in chair for meals and throughout day if asymptomatic) for rehabilitation and to prevent functional decline. Provided instruction and verbal cues to don sock with use of sock aide while seated EOB, as pt reports of difficulty at home and desire to increase independence with task. Provided facilitation in O2 line management during standing toilet clothing management. Pt instructed and verbally cued on hand placement on sink counter for balance support during standing ADL task. Pt educated on benefits of bringing walker up to counter surface, as pt abandons walker upon approach of sink, despite initial verbal cues. Pt educated in Energy Conservation Techniques: Sitting versus standing for bathing/dressing, use of long handled adaptive equipment, pacing, frequent rest breaks, prioritizing/planning, placement of items within reach to reduce need to reach/bend. Pt provided with Energy Conservation Techniques handout. Pt educated on benefits of use of shower chair at home to reduce risk of falls and for energy conservation.Pt educated on ways to obtain recommended equipment. Vitals monitored throughout session to ensure safe progression of functional activities. Pt educated in safe technique for how to get up after a fall, given pt's report of recent fall history at home. Pt educated in importance of use of call button for all needs and to call and wait for nursing/therapist assistance for all out of bed/chair activity. Education in OT POC and discharge recommendation with rationale. Total Timed Code Treatment Minutes: 24 Total Treatment Time (minutes): 45 FUNCTIONAL G CODE: OT 6 Clicks Score: 23 (12/28/17 1320) Self Care Current Status (G8987): CI (12/28/17 1320) Self Care Goal Status (G8988): CI (12/28/17 1320) Self Care Discharge Status (G8989): CI (12/28/17 1320) Based on clinical assessment and the score on the 6 Clicks Functional Assessment Tool, the G code and corresponding severity modifiers are documented above. SUBJECTIVE: Current Hospital Course: Chart reviewed; Patient is a 77 year old with a recent hospitalization for SOB/chest pain and admitted observation with no change in symptoms. PMH: arthritis, A fib, CAD, cardiomegaly, CAD, CKD, COPD, DM, diabetic neuropathy, GERD, gout, hiatal hernia, HTN, morbid obesity, pneumonia, pacemaker, renal insufficiency, sleep apnea. Patient Report: Patient sitting EOB upon OT arrival. I'm just so tired. Home Environment Patient Lives With: Family (daughter) Assistance Available: 24 Hour (assist provided by dtr/her courtney,grand dtr) Entry To Home: Stairs;Without Rail Number Of Stairs Into Home: 2 Number Of Stairs To Bed/Bath: 0 (first floor set up) Tub/Shower Type: tub/shower set up with grab bars Laundry: dtr does per laundromat Equipment Owned: Cane;Commode-Bedside;Grab Bars-Shower;Wheeled Walker;Home Oxygen;Other: See Comment (broken hospital bed) Prior Functional Level: Within Functional Limits;Required Assistance;History of Falls Assistance Required With: Cleaning;Laundry;Meals;Self Care;Shopping;Transportation Prior Functional Level Comments: One fall in last 6 month. Patient ind w amb short distances w FWW. Patient sleeps in hospital bed however hospital bed has springs that stick up. Daughter assists with getting her in/out of shower (stands to shower in tub), assists w bathing and dressing as patient needs. Patient is homebound except for MD appointments. Family completes all IADL's OBJECTIVE: Responsiveness: Alert;Awake Follows Commands: Cueing Needed Cueing to Follow Commands: Minimum (to moderate) Vision Deficits: Wears glasses (for reading) CURRENT FUNCTIONAL STATUS: Current Activities of Daily Living Assist Level Feeding Independent (per clinical judgment) Grooming Supervision (hand hygiene at sink) Bathing Upper Body Set Up (per clinical judgment seated) Bathing Lower Body Minimal Assistance (per clinical judgment seated) Dressing Upper Body Modified Independent (per clinical judgment seated) Dressing Lower Body Supervision (to don L sock using sock aid, doff sock seated on EOB ); anticipate SBA pants/underwear during standing portion of task Toileting Stand By Assistance (for clothing mgt, MOD I for seated toilet hygiene ) Functional Mobility Assist Level Rolling Supine to Sit Sit to Supine Scooting Sit to Stand Contact Guard Assistance (from bed to walker level; SBA 2nd trial) Stand to Sit Contact Guard Assistance (from walker level to bed; SBA 2nd trial) Bed to Chair Toilet/Commode Stand By Assistance (to supervision, bathroom toilet with use of L grab bar) Functional Mobility Contact Guard Assistance (to SBA) Wheeled Walker -Gait belt used during functional mobility and transfers for optimal safety Hand Dominance: Right Range Of Motion: Within Functional Limits Strength: Within Functional Limits Except Location Strength Not WFL: Upper Extremity Left Upper Extremity Strength: grossly 4/5 Right Upper Extremity Strength: grossly 4/5 Balance: Static Sitting;Dynamic Sitting;Static Standing;Dynamic Standing Static Sitting Balance: Independent Dynamic Sitting Balance: Independent Static Standing Balance: Supervision Dynamic Standing Balance: Supervision Activity Tolerance: Standing Activity Standing Activity: functional mobility to from bathroom, standing grooming at sink Standing Activity Tolerance (in minutes): (Pt reports of fatigue) Vital Signs Pre Assessment: O2 Equipment Pre O2 Equipment: Nasal Cannula Pre Oxygen Requirement: 2L/min Intra Assessment 1: Heart Rate Intra 1, SpO2 Intra 1 Intra Heart Rate 1: 82 Intra SpO2 1: 98 Intra Assessment 2: Heart Rate Intra 2, SpO2 Intra 2 Intra Heart Rate 2: 85 Intra SpO2 2: 99 Please see discipline specific clinical documentation flowsheet for complete details for this therapy evaluation/treatment. Pt and nursing agreeable to OT services. At end of session, pt sitting EOB. Lines/tubes/drains intact include: O2. Tray table and call light within reach. Nursing (RN, CM) notified of current pt status. SIGNATURE: Shakila Busch OT/L PATIENT NAME: Luz Baca DATE: December 28, 2017 TIME: 4:18 PM PAGER: [phone] CONSULT PROG Observed: 12/28/2017 Status: COMPLETED Source: [place] 3:35 PM CLINIC OTHER CAMPUS REPOSITORY HNO ID: [id number] Author: Max Reynolds Service: Infectious Disease Author Type: Physician Type: Consult Progress Note Filed: 12/28/2017 3:38 PM Note Text: INFECTIOUS DISEASE PROGRESS NOTE Patient Name: Luz Baca Date: 12/28/2017 ASSESSMENT: 1. Bibasilar pneumonia, concern is for aspiration and gram-negative component due to her recent hospitalization. MRSA nasal swab is negative. 2. Leukocytosis, likely due to #1. 3. Acute on chronic respiratory failure, which is improved likely due to #1. 4. Severe COPD. 5. Multiple antibiotic allergies. 6. Thrombocytopenia, which appears to be chronic. 7. Chronic kidney disease stage 4 8. Suspected pharyngeal and esophageal phase dysphagia PLAN: Continue meropenem Order esophagogram Follow clinically INTERVAL HISTORY: ROS done with pt/RN and negative unless stated. Reviewed modified barium swallow, speech therapy notes - 'pharyngeal / esophageal phase dysphagia'. No fevers chills nausea vomiting diarrhea. Still cough and shortness of breath. MEDICATIONS: reviewed. Current hospital medications: meropenem 1 g in D5W 100 mL MB+ (MERREM) 1 g INTRAVENOUS q 12 H aspirin, enteric coated 81 mg tab(s) (ASPIRIN, ENTERIC COATED) 81 mg ORAL DAILY predniSONE 20 mg tab(s) (DELTASONE) 20 mg ORAL DAILY dextrose 40 % 15 g 15 g ORAL PRN glucagon 1 mg injection (GLUCAGEN) 1 mg INTRAMUSCULAR PRN dextrose 50% in water 25 mL syringe 12.5 g INTRAVENOUS PRN simvastatin 40 mg tab(s) (ZOCOR) 40 mg ORAL AT BEDTIME gabapentin 600 mg cap(s) (NEURONTIN) 600 mg ORAL BID ipratropium-albuterol 3 mL nebulizer solution (DUONEB) 3 mL INHALATION q 4 H while awake colchicine 0.6 mg tab(s) 0.6 mg ORAL DAILY apixaban 5 mg tab(s) (ELIQUIS) 5 mg ORAL BID insulin lispro 10 Units injection (rapid acting) (HumaLOG) 10 Units SUBCUTANEOUS TID w MEALS insulin glargine 45 Units injection (long acting) (LANTUS) 45 Units SUBCUTANEOUS DAILY (8 AM) insulin glargine 30 Units injection (long acting) (LANTUS) 30 Units SUBCUTANEOUS AT BEDTIME guaiFENesin-dextromethorphan 100-10 mg/5 mL 5-10 mL oral liquid (ROBITUSSIN DM) 5-10 mL ORAL q 6 H PRN potassium chloride ER 10 mEq tab(s) (K-DUR, KLOR-CON) 10 mEq ORAL DAILY spironolactone 25 mg tab(s) (ALDACTONE) 25 mg ORAL DAILY pantoprazole [address] 40 mg tab(s) (PROTONIX) 40 mg ORAL DAILY (6 AM) isosorbide mononitrate ER 30 mg tab(s) (IMDUR) 30 mg ORAL DAILY nitroglycerin sublingual 0.4 mg tab(s) (NITROQUICK) 0.4 mg SUBLINGUAL q 5 MIN PRN 0.9% NaCl 3-5 mL 3-5 mL INTRAVENOUS q 12 H furosemide 40 mg injection (LASIX) 40 mg INTRAVENOUS DAILY benzonatate 100 mg cap(s) (TESSALON PERLE) 100 mg ORAL TID insulin lispro injection (rapid acting) (HumaLOG) SUBCUTANEOUS w MEALS insulin lispro injection (rapid acting) (HumaLOG) SUBCUTANEOUS AT BEDTIME PHYSICAL EXAM: Vital signs: BP 123/64 Pulse 64 Temp 36.6 ?C (97.8 ?F) (Oral) Resp 20 Ht 172.7 cm (5' 8) Wt 105.5 kg (232 lb 9.4 oz) SpO2 97% BMI 35.36 kg/m2 Temp (24hrs), Av.4 ?C (97.6 ?F), Min:36.3 ?C (97.3 ?F), Max:36.7 ?C (98.1 ?F) General: alert, oriented, NAD Lungs: bilaterally Coarse breath sounds and occasional wheezing Heart: regular rate and rhythm Abdomen: soft, non tender, non distended, BS+ Extremities: no swollen joints Skin: no rash IV sites - wnl Lab data: reviewed Recent Labs 12/28/17 0309 12/27/17 0600 12/26/17 0601 WBC 9.78 11.68* 11.25* HB 12.8 13.0 12.9 PLT 112* 126* 125* NA 141 137 131* K 5.1 5.0 Unable to assay. Specimen significantly hemolyzed. CO2 35* 33* 24 BUN 70* 70* 72* CREAT 1.61* 1.56* 1.47* Microbiology data: reviewed Imaging data: reviewed Max Reynolds MD Pager: PROGRESS Observed: 12/28/2017 Status: COMPLETED Source: [place] 2:25 PM CLINIC OTHER CAMPUS REPOSITORY HNO ID: [id number] Author: Peyman Guerrero Service: Hospital Medicine Author Type: Physician Type: Progress Notes Filed: 12/28/2017 2:29 PM Note Text: HOSPITAL MEDICINE PROGRESS NOTE Name: Luz Baca SERVICE DATE: 12/28/2017 SERVICE TIME: 2:25 PM LOCATION / ROOM: [place] [id number]/[place] [address] Hospital Medicine/Primary Attending: Peyman guerrero MD NIGHT COVERAGE BETWEEN 5.30P-7.30A Page [phone] ASSESSMENT AND PLAN HCAP (healthcare-associated pneumonia) Feels slowly improving, sob with activity - started with IV Vanco and Aztreonam initially and changed to Cefepime - blood cx- no growth, sputum culture- Few Normal respiratory mitra present , negative nasal MRSA - duoneb q4hr + prn - Mucinex BID - consulted ID due to recurrent admission/HCAP for antibiotic choice, changed to Meropenum IV - consulted speech therapy, suspicion of aspiration PNA, MBS done today, no significant findings on that ?? Acute on chronic combined systolic and diastolic CHF (congestive heart failure) Acute diastolic heart failure (LVEF 50%) HOCM- Status post septal myomectomy at the time of CABG 2003 CAD Status post CABG ?2, 07/18/04, VU to LAD, SVG to PDA; PCI ?6 RCA, 2014 PCI ?3 2015 Status post myocardial perfusion imaging stress test 08/11/17 with possible prior apical infarct and no ischemia, EF 50%. ICD - most likely some fluid overload - Pro BNP 2600 - cont with fluid restriction - Last Echo 12/21/2017 LVEF 50% with Grade 3 diastolic dysfunction - St Rob AICD / PM - minimal rate at 60 - nml function on check today. Result on chart. - negative 4.8 liter so far - consulted Dr. Yeung. - continue spironolactone - continue statin - continue apixaban for anticoagulation - resumed aspirin due to multi-vessel PCI in the past - change lasix to 40 mg po daily ? She can follow up as an outpatient with Dr. Cardona on discharge ? Acute on chronic respiratory failure with hypoxia? - chronic home O2 with 2.5 l/min NC - supplement as needed - back to base line ? COPD with acute exacerbation? - Given on dose in ER with Solumedrol - cont with treatment as above - wean steroids slowly ? Atrial fibrillation - Not on any BB - Cont Eliquis - Rate controlled - on telemetry monitoring noticed to be low 40's in HR - PM/ICD checked, normal function ?? Diabetes mellitus due to underlying condition, uncontrolled, with stage 3 chronic kidney disease, with long-term current use of insulin On amaryl and sitagliptan Will start sliding scale option 1 coverage Follow accuchecks HgbA1c: >15 (Oct 2707/2018) ?? Carotid artery disease H/O of CABGx2 (DEBORAH-LAD, SVG-PDA ) in 2004 On ezetimibe, simvastatin, metoprolol, benazepril ?? Essential hypertension On metoprolol, norvasc, benazepril will titrate ?? GERD (gastroesophageal reflux disease) On nexium - protonix here ?? Hyperlipidemia On ezetimibe and simvastatin LDL 61 ?? Sleep apnea Should wears CPAP at home But not used for years Last sleep study in possible 2008 ?? Obesity Diet/exercise/weightloss discussed with patient ? SUBJECTIVE INTERVAL HPI: Feels Not much better, no fever, chills, cp nor palpitations. No events overnight MEDICATIONS: Reviewed Current Facility-Administered Medications: meropenem 1 g in D5W 100 mL MB+ (MERREM) 1 g INTRAVENOUS q 12 H Max Rodolfo 1 g at 12/28/17 0839 aspirin, enteric coated 81 mg tab(s) (ASPIRIN, ENTERIC COATED) 81 mg ORAL DAILY Jose C Yeung 81 mg at 12/28/17 0836 predniSONE 20 mg tab(s) (DELTASONE) 20 mg ORAL DAILY Radha Loomis Md Thuestad 20 mg at 12/28/17 0835 dextrose 40 % 15 g 15 g ORAL PRN Leandro Kauffman MD Or glucagon 1 mg injection (GLUCAGEN) 1 mg INTRAMUSCULAR PRN Leandro Kauffman MD Or dextrose 50% in water 25 mL syringe 12.5 g INTRAVENOUS PRN Leandro Kauffman MD simvastatin 40 mg tab(s) (ZOCOR) 40 mg ORAL AT BEDTIME Radha Loomis Md Thuestad 40 mg at 12/27/17 2046 gabapentin 600 mg cap(s) (NEURONTIN) 600 mg ORAL BID Radha Adams) Thuestad 600 mg at 12/28/17 0834 ipratropium-albuterol 3 mL nebulizer solution (DUONEB) 3 mL INHALATION q 4 H while awake Radha Adams) Thuestad 3 mL at 12/28/17 1336 colchicine 0.6 mg tab(s) 0.6 mg ORAL DAILY Radha Adams) Thuestad 0.6 mg at 12/28/17 0836 apixaban 5 mg tab(s) (ELIQUIS) 5 mg ORAL BID Radha Loomis Md Thuestad 5 mg at 12/28/17 0835 insulin lispro 10 Units injection (rapid acting) (HumaLOG) 10 Units SUBCUTANEOUS TID w MEALS Radha Adams) Thuestad 10 Units at 12/28/17 1206 insulin glargine 45 Units injection (long acting) (LANTUS) 45 Units SUBCUTANEOUS DAILY (8 AM) Radha Loomis Md Thuestad 45 Units at 12/27/17 0809 insulin glargine 30 Units injection (long acting) (LANTUS) 30 Units SUBCUTANEOUS AT BEDTIME Radha A (Md) Thuestad 30 Units at 12/27/17 204 guaiFENesin-dextromethorphan 100-10 mg/5 mL 5-10 mL oral liquid (ROBITUSSIN DM) 5-10 mL ORAL q 6 H PRN Radha Adams) Thuestad 10 mL at 12/26/17 0813 potassium chloride ER 10 mEq tab(s) (K-DUR, KLOR-CON) 10 mEq ORAL DAILY [place] Ebonie Adams) Thuestad 10 mEq at 12/28/17 0835 spironolactone 25 mg tab(s) (ALDACTONE) 25 mg ORAL DAILY Radha Ebonie Adams) Thuestad 25 mg at 12/28/[address] 40 mg tab(s) (PROTONIX) 40 mg ORAL DAILY (6 AM) Radha Adams) Thuestad 40 mg at 12/28/17 0535 isosorbide mononitrate ER 30 mg tab(s) (IMDUR) 30 mg ORAL DAILY Radha Adams) Thuestad 30 mg at 12/28/17 0836 nitroglycerin sublingual 0.4 mg tab(s) (NITROQUICK) 0.4 mg SUBLINGUAL q 5 MIN PRN Radha Mazauestad 0.9% NaCl 3-5 mL 3-5 mL INTRAVENOUS q 12 H Radha Adams) Thuestad 5 mL at 12/28/17 0838 furosemide 40 mg injection (LASIX) 40 mg INTRAVENOUS DAILY Radha Adams) Thuestad 40 mg at 12/28/17 0836 benzonatate 100 mg cap(s) (TESSALON PERLE) 100 mg ORAL TID Hareesh Singam 100 mg at 12/28/17 1205 insulin lispro injection (rapid acting) (HumaLOG) SUBCUTANEOUS w MEALS Caroline (Audio Production Engineer) Garcia 6 Units at 12/28/17 1206 insulin lispro injection (rapid acting) (HumaLOG) SUBCUTANEOUS AT BEDTIME Caroline (Audio Production Engineer) Garcia 2 Units at 12/26/172041 OBJECTIVE PHYSICAL EXAM: BP 123/64 Pulse 64 Temp (Src) 97.8 (Oral) Resp 20 Ht 5' 8 (1.73m) Wt 232 lb 9.4 oz (105.5kg) SpO2 97% BMI 35.37 kg/(m2). GENERAL: Alert, no distress, cooperative, obese SKIN: Skin color, texture, turgor normal. No rashes or lesions. EYES: PERRLA, EOMI OROPHARYNX: Lips, mucosa, and tongue normal. Teeth and gums normal. Oropharynx normal. NECK: No jugulovenous distention, No carotid bruits, Carotid pulse normal contour, Supple LUNGS: Lungs clear to auscultation, Good diaphragmatic excursion CARDIAC: Normal S1 and S2; no rubs, murmurs, or gallops ABDOMEN: Abdomen soft, non-tender, BS normal, No masses or organomegaly EXTREMITIES: Extremities normal, no deformities, edema, clubbing or skin discoloration. Good capillary refill., No ulcers NEURO: Reflexes normal and symmetric. Sensation grossly intact, Cranial nerves II-XII intact PULSES: 2+ radial, 2+ carotid DATA: Diagnostic tests reviewed for today's visit: CBC, Coags, BMP, Mg, Phos Recent Labs 12/28/17 0309 12/27/17 0600 12/26/17 0601 WBC 9.78 11.68* 11.25* HB 12.8 13.0 12.9 HCT 42.0 42.2 42.0 PLT 112* 126* 125* NA 141 137 131* K 5.1 5.0 Unable to assay. Specimen significantly hemolyzed. CHLOR 99 96* 92* CO2 35* 33* 24 BUN 70* 70* 72* CREAT 1.61* 1.56* 1.47* GLUC 161* 235* 438* CA 9.2 9.2 8.8 MG 2.7* 2.5* 2.5* VTE Prophylaxis: Patient is already anti-coagulated. Disposition: Home with [facility] PT Plan of care discussed with: Patient, RN and daughter SIGNATURE: Peyman guerrero MD DATE: December 28, 2017 TIME: 2:29 PM XR MOD BARIUM Observed: 12/28/2017 Status: F Source: [place] SWALLOW W SPEECH 11:52 AM CLINIC OTHER CAMPUS REPOSITORY * * *Final Report* * * DATE OF EXAM: Dec 28 2017 11:52AM MDX [id number] - XR MOD BARIUM SWALLOW W SPEECH / PROCEDURE REASON: Cough--Aspiration into airway * * * * Physician Interpretation * * * * EXAMINATION: Modified barium swallow: 12/28/2017 11:52 AM HISTORY: 77-year-old female with cough. Requisition states aspiration into airway. FLUOROSCOPY TIME: 2:28 minutes. RESULTS/ IMPRESSION: Exam was performed by speech pathologist. Cine-loops were submitted for interpretation. No significant abnormality noted on those images. Refer to speech pathology report for complete findings of exam. Service Delivery Supervisor: SALINAS Transcribe Date/Time: Dec 28 2017 12:45P Dictated by : JEFF GONCALVES MD This examination was interpreted and the report reviewed and electronically signed by: JEFF GONCALVES MD on Dec 28 2017 12:46PM EST [id number] THERAPY NT Observed: 12/28/2017 Status: COMPLETED Source: [place] 11:30 AM CLINIC OTHER CAMPUS REPOSITORY HNO ID: [id number] Author: Gay ([employer] Wire Weaver) Margarita Jack CCC/MILITARY NURSE Service: Speech/Swallow Author Type: Speech Language Pathologist Type: Therapy (PT/OT/Speech/Resp) Filed: 12/28/2017 2:42 PM Note Text: Speech Therapy MBSS Evaluation SERVICE DATE: 12/28/2017 SERVICE TIME: 1130 to 1200 ROOM: [id number] Nursing Recommendations: Reinforce use of swallowing strategies;Utilize bed in chair position Diet Recommendations: Regular Consistency;Thin liquids Swallowing Precautions Recommendations: Anti-Reflux precautions;Maintain an upright position 20-30 minutes following all oral intake;Sit upright 90 degrees for all PO;Self-monitoring;Double swallows;Alternate bites and sips;Small Bite/Sip;Extended time between presentations Recommended Consults: GI; May need to consider additional diagnostic information through an Esophagram Results and Recommendations Discussed With: Patient;Nurse Recommended Discharge Disposition: Unable to determine IMPRESSION: Patient demonstrates pharyngeal / esophageal phase dysphagia which is negatively impacting his/her ability to effectively maintain adequate nutrition and hydration and/or airway safety. Precaution/Activity Restriction Comments: standard precautions ASSESSMENT: Modified Barium Swallowing Exam completed this date reveals the following: -poor esophageal emptying while in an upright posture; Retrograde flow is noted below the level of the pharyngoesophageal segment -no occurrence of laryngeal penetration /aspiration is noted at this time. Tolerated Full Session Prior to the start of the procedure, a time out was taken to verbally confirm the identification of the patient utilizing but not limited to name and date of and to verify a Modified Barium Swallow is being conducted according to standard operating procedure. Instrumental Swallow Assessment Type: Modified Barium Swallow Study Modified Barium Swallow Views: Lateral position MBS Consistencies Tested: Thin Barium Liquids;Katherine Thick Barium Liquids;Puree With Barium Paste;Soft Solid With Barium Paste;Solid With Barium Paste Oral Phase: Lip Closure: No labial escape/anterior loss of bolus Tongue Control During Bolus Hold: Cohesive bolus between tongue to palatal seal Bolus Preparation/Mastication: Slow prolonged mastication with complete re-collection necessary Bolus Transport/Lingual Motion: Brisk tongue motion for A- P movement of the bolus Oral Residue: Trace residue lining oral structures Initiation Of Pharyngeal Swallow: Bolus head at posterior angle of ramus;Bolus head at vallecular pit Pharyngeal Phase: Soft Palate Elevation: No bolus between soft palate/pharyngeal wall Laryngeal Elevation: Complete superior movement of thyroid cartilage with contact of arytenoids to epiglottic petiole Anterior Hyoid Excursion: Complete anterior movement Epiglottic Movement: Complete inversion Laryngeal Vestibular Closure/Height of the Swallow: Complete - no air/contrast in laryngeal vestibule Pharyngeal Stripping Wave: Complete Pharyngoesophageal Segment Opening: Complete distension and complete duration/no obstruction of flow of bolus Tongue Base Retraction: Trace column of contrast or air between tongue base and pharyngeal wall Pharyngeal Residue: Trace residue within or on the pharyngeal structures Esophageal Clearance In An Upright Position: Esophageal retention;Esophageal retention with retrograde flow below the pharyngoesophageal segment Penetration/Aspiration Scale: 1-Material does not enter airway Goals for Plan of Care: Swallow Goals: -Patient will demonstrate adequate return of knowledge of all compensatory strategies/instruction to effectively assist the patient in immediate safety with oral intake and swallowing. Patient /Caregiver Goals: Eat/Drink Without Restrictions Rehab Potential: Good PLAN: Treatment Frequency (times per week): 3 Current admission Treatment Interventions: Dysphagia Management Plan of Care Developed with: Patient TREATMENT INTERVENTIONS: Therapy Diagnosis: Dysphagia, pharyngoesophageal phase Interventions Provided: Modified Barium Swallow Study (72294);Dysphagia Therapy (03087) $ Modified Barium Swallow Study (08984) Billed Units: 1 unit $ Dysphagia Therapy (33008) Billed Units: 1 unit Skilled Interventions: Instructed patient / caregiver on recommended compensatory strategies to maximize safety with oral intake while maintaining nutrition, hydration and medication stability. -Education regarding findings from today's Modified Barium Swallowing study (fluoroscopic study) and plans for treatment were provided to the patient / family / caregivers through verbal / written instruction, images and/or demonstration. Patient appeared to be able to demonstrate understanding of education provided this date. Total Treatment Time (minutes): 30 FUNCTIONAL G CODE: G Code Functional Limitations: Swallowing (12/28/17 1130) Swallow Current Status (G8996): CI (12/28/17 1130) Swallow Goal Status (G8997): CI (12/28/17 1130) Based on clinical assessment and the score on the Functional Communication Measure (FCM), the G code and corresponding severity modifiers are documented above. Physician signature certifies treatment plan of care established above for the period of 12/28/2017 through 01/11/2018. SUBJECTIVE: Current Hospital Course: Chart reviewed; -COPD with acute exacerbation -questioning possible aspiration -history of GERD Patient Report: I choke frequently on liquids and/or foods; I get a sticking sensation way up here at times' Please see discipline specific clinical documentation flowsheet for complete details for this therapy evaluation/treatment. SIGNATURE: Gay Jack CCC-MILITARY NURSE PATIENT NAME: Luz Baca DATE: December 28, 2017 TIME: 2:36 PM PAGER: [phone] THERAPY NT Observed: 12/28/2017 Status: COMPLETED Source: [place] 9:17 AM [facility] OTHER CAMPUS REPOSITORY O ID: [id number] Author: Elsy Lees Service: Physical Therapy Author Type: Physical Therapist Type: Therapy (PT/OT/Speech/Resp) Filed: 12/28/2017 11:31 AM Note Text: Physical Therapy Evaluation SERVICE DATE: 12/28/2017 SERVICE TIME: 916 to 958 ROOM: [place] [address] Recommended Discharge Disposition: Home PT Recommended Discharge Disposition Comments: Patient would benefit from home PT for home safety assessment and to increase strength/safety/tolerance with functional progression Anticipated Discharge Needs: Physical Assist at Home;Supervision at Home Physical Assist at Home for: Cleaning;Laundry;Meals;Shopping;Transportation Supervision at Home due to: (initially for optimal safety) Recommended Discharge Equipment: No equipment needs anticipated PT Recommendations to Nursing: Ambulate with device;To bathroom;In halls;Transfer to/from chair;OOB for Meals;With assist of 1 person Device: Wheeled Walker (gait belt) PT 6 Clicks Score: 20 Precautions/Activity Restrictions: Fall Risk;Lines/Tubes/Drains Precaution/Activity Restriction Comments: standard precautions ASSESSMENT : Patient presents with general weakness, decreased activity tolerance with need for O2 per NC at baseline, decreased functional mobility/balance limiting ability to perform functional mobility without caregiver assist. Patient demonstrates mobility with SBA/CGA and mobility requires extended time. Requires skilled PT for increasing strength/safety/tolerance with functional progression. Tolerated Full Session Physical Therapy Problem List: Safety Deficits;Impaired Self Care;Decreased Activity Tolerance;Decreased Strength;Functional Mobility Impairment;Balance Impaired Patient /Caregiver Goals: Go Home Goals for Plan of Care: Able to perform HEP with: Modified Independent (w handout for fxnal LE strength x 20 reps) Transfer supine to/from sit with: Independent (to safely sit EOB without bed adjustments) Transfer sit to/from stand with: Stand By Assistance Ambulate with: Stand By Assistance Distance: 150 - 200 feet to safely navigate in home environment Device: Wheeled Walker Ambulate up and down steps with: Stand By Assistance Number of steps: 2 (to safely enter home) Device: (LRAD) Goal: Patient demonstrates fair+ to good balance with functional progression to decrease risk of falls Progress Toward Goals: Progressing as expected Rehab Potential: Good PLAN: Treatment Frequency (times per week): 4 Current admission Treatment Interventions: Education;Self Care / Home Management;Energy Conservation Training;Joint Mobility;Strengthening;Functional Mobility Training;Balance Training;Neuromuscular Re-education Plan of Care developed with: Patient TREATMENT INTERVENTIONS: Therapy Diagnosis: Reduced mobility-other Interventions Provided: Evaluation;Therapeutic Activity (05023);Gait Training (08061) $ Evaluation-Low (58173) Billed Units: 1 unit Therapeutic Activity (35486) Treatment Minutes: 15 1 unit Skilled Intervention(s): Instruction in stand to sit technique with lower extremities touching chair/bed and reaching back for surface Instruction in sit to and from stand technique with proper hand placement and body positioning at edge of bed/chair Education of benefit of mobility to prevent decline and work towards functional/home going goals, verbally reviewed exercises in sitting and supine and issued HEP sheets for performance at hospital to improve strength Education in use of call light to get up 100% Education in discharge recommendation and rationale Gait Training (55439) Treatment Minutes: 12 1 unit Skilled Intervention(s): Instruction in sequencing, gait pattern, Instruction in correction of gait deviations, Instruction in use of equipment, cues for sequence and pattern and cues for posture Education for adjusting walker height appropriately and rationale Education for continued recommendation for FWW for stability and improved activity tolerance Cues to amb inside device versus retro to device Cues for walker negotiation/sequencing with change of direction/negotiation around room obstacles and safe approach of sitting surface. Total Timed Code Treatment Minutes: 27 Total Treatment Time (minutes): 42 FUNCTIONAL G CODE: PT 6 Clicks Score: 20 (12/28/17916) $ Mobility: Walking and Moving Around Current Status (G8978): CJ (12/28/17916) $ Mobility: Walking and Moving Around Goal Status (G8979): CI (12/28/17916) Based on clinical assessment and the score on the 6 Clicks Functional Assessment Tool, the G code and corresponding severity modifiers are documented above. SUBJECTIVE: Current Hospital Course: Chart reviewed; Patient is a 77 year old female with history of arthritis, A fib, CAD, cardiomegaly, CAD, CKD, COPD, DM, diabetic neuropathy, GERD, gout, hiatal hernia, HTN, morbid obesity, pneumonia, pacemaker, renal insufficiency, sleep apnea. Patient with recent hospitalization for SOB/chest pain and admitted observation with no change in symptoms. Patient Report: Patient sitting EOB at approach and agreeable to PT, cleared by nursing for mobility. Denies lightheadedness/dizziness/nausea throughout. Patient reports happy to amb in umanzor/out of room. Patient reports that hospital bed broken with broken rails and springs sticking out - case management, Susan, notified and to approach patient regarding bed. Home Environment Patient Lives With: Family (daughter) Assistance Available: 24 Hour (assist provided by dtr/her fiance,grand dtr) Entry To Home: Stairs;Without Rail Number Of Stairs Into Home: 2 Number Of Stairs To Bed/Bath: 0 (first floor set up) Tub/Shower Type: tub/shower set up with grab bars Laundry: dtr does per laundromat Equipment Owned: Cane;Commode-Bedside;Grab Bars-Shower;Wheeled Walker;Home Oxygen;Other: See Comment (broken hospital bed) Prior Functional Level: Within Functional Limits;Required Assistance;History of Falls Assistance Required With: Cleaning;Laundry;Meals;Self Care;Shopping;Transportation Prior Functional Level Comments: One fall in last 6 month. Patient ind w amb short distances w FWW. Patient sleeps in hospital bed however hospital bed has springs that stick up. Daughter assists with getting her in/out of shower (stands to shower in tub), assists w bathing and dressing as patient needs. Patient is homebound except for MD appointments. Family completes all IADL's OBJECTIVE: Range Of Motion: Within Functional Limits Strength: Within Functional Limits Except Location Strength Not WFL: Hip Flexion;Hip Extension;Knee Flexion;Knee Extension;Ankle Dorsiflexion Left Hip Flexion Strength: 3+/5 Right Hip Flexion Strength: 4-/5 Left Hip Extension Strength: not tested Right Hip Extension Strength: not tested Left Knee Flexion Strength: 4-/5 Right Knee Flexion Strength: 4/5 Left Knee Extension Strength: 4-/5 Right Knee Extension Strength: 4/5 Left Ankle Dorsiflexion Strength: 4/5 Right Ankle Dorsiflexion Strength: 4+/5 CURRENT FUNCTIONAL STATUS: Current Functional Mobility Assist Level Additional Information Rolling Supine to Sit Other: See Comment (not tested, pt sitting EOB at approach) Sit to Supine Other: See Comment (not tested, pt set up at EOB post session) Scooting Stand By Assistance (in sitting, fwd/retro at EOB) Sit to Stand Contact Guard Assistance (from EOB with FWW) Stand to Sit Contact Guard Assistance (to EOB with FWW) Bed to Chair Toilet/Commode Gait Contact Guard Assistance Gait Device: Wheeled Walker Gait Distance (feet): 120 x 1 Stairs Curb Step Car Transfer Gait Deviations Right Lower Extremity: Heel strike during initial stance decreased;Push-off during terminal stance decreased;Step length decreased Gait Deviations Left Lower Extremity: Heel strike during initial stance decreased;Push-off during terminal stance decreased;Step length decreased General Gait Deviations: Jane decreased;Lateral sway increased;Step length decreased;Flexed trunk posture;Wide base of support;Difficulty changing direction/turning *Gait belt donned prior to OOB activity and ambulation Balance: Static Sitting;Dynamic Sitting;Static Standing;Dynamic Standing Static Sitting Balance: Independent Dynamic Sitting Balance: Supervision Static Standing Balance: Contact Guard Assistance Dynamic Standing Balance: Contact Guard Assistance Patient sitting edge of bed following PT session. Instructed patient to use call bear for assist with all OOB activity, patient verbalizes understanding. Tray table, call bear and personal belongings within reach. Nurse notified of patient status Please see discipline specific clinical documentation flowsheet for complete details for this therapy evaluation/treatment. SIGNATURE: Elsy Lees PT PATIENT NAME: Luz Baca DATE: December 28, 2017 TIME: 11:19 AM PAGER/CONTACT #: [phone] NURSING PROG Observed: 12/28/2017 Status: COMPLETED Source: [place] 8:42 AM [facility] REPOSITORY HNO ID: [id number] Author: Amarjit OsheaRn) ALLYSON Clay Service: (none) Author Type: Registered Nurse Type: Nursing Progress Note Filed: 12/28/2017 9:59 AM Note Text: Nursing Progress Note Patient Name: Luz Baca [place] [facility] [id number] Daily Note: 0840- Pt glucose was 56. Gave OJ and isma crackers. Glucose up to 95. Held all insulin, left message for hospitalist. Waiting on return phone call [phone] with Cesar Richard. Alerted him that I held all insulin. No new orders for the pt. This note was completed by: Amarjit Clay RN NURSING PROG Observed: 12/28/2017 Status: COMPLETED Source: [place] 4:40 AM [facility] REPOSITORY HNO ID: [id number] Author: Sofya OsheaRn) Santino, ALLYSON Service: (none) Author Type: Registered Nurse Type: Nursing Progress Note Filed: 12/28/2017 4:42 AM Note Text: Nursing Progress Note Patient Name: Luz Baca [place] [facility] [id number] Daily Note:0433- 6 beat run of vtach, pt states she does feel a slight flutter in her chest and some mild nausea, call out to notify hospitalist Dr Wick no new orders. This note was completed by: Sofya De RN CBC Collected: 12/28/2017 Status: F Source: [place] 3:09 AM [facility] REPOSITORY TYPE CODE TESTS RESULT OUT OF REFERENCE UNITS RANGE LAB WBC 3.70-11.00 k/uL WBC 9.78 LAB RBC 3.90-5.20 m/uL RBC 4.36 LAB HGB 11.5-15.5 g/dL Hemoglobin 12.8 LAB HCT 36.0-46.0 % Hematocrit 42.0 LAB MCV 80.0-100.0 fL MCV 96.3 LAB MCH 26.0-34.0 pG MCH 29.4 LAB MCHC 30.5-36.0 g/dL MCHC 30.5 LAB RDWCV 11.5-15.0 % RDW-CV High 15.8 LAB PLTCT 150-400 k/uL Low Platelet Count 112 LAB MPV 9.0-12.7 fL MPV 9.4 Performed By: #### CBC, BMP, MG1 #### [facility] [address] [place] [address] BASIC METABOLIC PANL Collected: 12/28/2017 Status: F Source: [place] 3:09 AM [facility] REPOSITORY TYPE CODE TESTS RESULT OUT OF REFERENCE UNITS RANGE LAB GLU 74-99 mg/dL High Glucose 161 Result Comment: The [place] [employer] (ADA) provides guidance for cutoff values for fasting glucose and random glucose. The ADA defines fasting as no caloric intake for at least 8 hours. Fas ting plasma glucose results between 100 to 125 mg/dL indicate increased risk for diabetes (prediabetes). Fasting plasma glucose results greater than or equal to 126 mg/dL meet the criteria for diagnosis of diabetes. In the absence of unequivocal hyperglycemia, results should be confirmed by repeat testing. In a patient with classic symptoms of hyperglycemia or hyperglycemic crisis, random plasma glucose results greater than or equal to 200 mg/dL meet the criteria for diagnosis of diabetes. Reference: Standards of Medical Care in Diabetes 2016, [place] [employer]. Diabetes Care. 2016.39(Suppl 1). LAB BUN 7-21 mg/dL BUN High 70 LAB CRET 0.58-0.96 mg/dL Creatinine High 1.61 LAB NA 136-144 mmol/L Sodium 141 LAB K 3.7-5.1 mmol/L Potassium 5.1 LAB CL 97-105 mmol/L Chloride 99 LAB CO2 22-30 mmol/L CO2 High 35 LAB AGAP 9-18 mmol/L Low Anion Gap 7 LAB CA 8.5-10.2 mg/dL Calcium, Total 9.2 LAB GFRAA eGFR- Amer. 38 LAB GFRNAA . eGFR-All Other Races 31 Result Comment: eGFR (Estimated GFR) Units of measure: mL/min/1.73 meters squared eGFR is derived from the reexpressed MDRD Study equation using the following parameters: serum creatinine, age, gender and race. The creatinine assay has been calibrated to be traceable to IDMS. An eGFR <60 mL/min/1.73m2 for >3 months is consistent with chronic kidney disease. Refer to KDOQI guidelines for clinical interpretation. In patients with unstable renal function, e.g. those with acute kidney injury, the eGFR may not accurately reflect actual GFR. Performed By: #### CBC, BMP, MG1 #### [facility] [address] [place] [address] MAGNESIUM Collected: 12/28/2017 Status: F Source: [place] 3:09 AM [facility] REPOSITORY TYPE CODE TESTS RESULT OUT OF REFERENCE UNITS RANGE LAB MG 1.7-2.3 mg/dL High Magnesium 2.7 Performed By: #### CBC, BMP, MG1 #### [facility] [address] [place] [id number] PLAN OF CARE Observed: 12/27/2017 Status: COMPLETED Source: [place] 3:17 PM [facility] [place] REPOSITORY HNO ID: [id number] Author: Max Reynolds Service: Infectious Disease Author Type: Physician Type: Plan of Care Filed: 12/27/2017 3:17 PM Note Text: Consult Dictated. Please call with questions. Will follow with you. Thank you. Max Reynolds MD Pager: [phone] Date: 12/27/2017 Time: 3:17 PM PT ED Observed: 12/27/2017 Status: COMPLETED Source: [place] 2:47 PM CLINIC OTHER CAMPUS REPOSITORY [facility] ID: [id number] Author: Akua Muller (Email Administrator) Service: Pharmacy Author Type: Pharmacist Type: Patient Education Filed: 12/27/2017 2:49 PM Note Text: Heart Failure Education Note Patient Name:Josephine Baca Service Date: 12/27/2017 Service Time: 2:47 PM Heart Failure Education Provided: Patient was provided written and verbal instructions of heart failure management, activity as tolerated, signs and symptoms of heart failure/worsening heart failure, and to contact their physician if exhibits these symptoms. Instructed patient to contact his or her HF physician if his or her weight increases or decreases more than or equal to 4 lbs from dry weight. Medication Education Provided: 1. Reason for taking medications and treatment goals. 2. Benefits of medication therapy. 3. How medications work. 4. Importance of regularly filling prescriptions and taking medications. Patient was given opportunity to ask questions and receive answers. Current Inpatient Medications: Current hospital medications: meropenem 1 g in D5W 100 mL MB+ (MERREM) 1 g INTRAVENOUS q 8 H aspirin, enteric coated 81 mg tab(s) (ASPIRIN, ENTERIC COATED) 81 mg ORAL DAILY predniSONE 20 mg tab(s) (DELTASONE) 20 mg ORAL DAILY dextrose 40 % 15 g 15 g ORAL PRN glucagon 1 mg injection (GLUCAGEN) 1 mg INTRAMUSCULAR PRN dextrose 50% in water 25 mL syringe 12.5 g INTRAVENOUS PRN nystatin 2 mL oral liquid (MYCOSTATIN) 200,000 Units ORAL QID simvastatin 40 mg tab(s) (ZOCOR) 40 mg ORAL AT BEDTIME gabapentin 600 mg cap(s) (NEURONTIN) 600 mg ORAL BID ipratropium-albuterol 3 mL nebulizer solution (DUONEB) 3 mL INHALATION q 4 H while awake colchicine 0.6 mg tab(s) 0.6 mg ORAL DAILY apixaban 5 mg tab(s) (ELIQUIS) 5 mg ORAL BID insulin lispro 10 Units injection (rapid acting) (HumaLOG) 10 Units SUBCUTANEOUS TID w MEALS insulin glargine 45 Units injection (long acting) (LANTUS) 45 Units SUBCUTANEOUS DAILY (8 AM) insulin glargine 30 Units injection (long acting) (LANTUS) 30 Units SUBCUTANEOUS AT BEDTIME guaiFENesin-dextromethorphan 100-10 mg/5 mL 5-10 mL oral liquid (ROBITUSSIN DM) 5-10 mL ORAL q 6 H PRN potassium chloride ER 10 mEq tab(s) (K-DUR, KLOR-CON) 10 mEq ORAL DAILY spironolactone 25 mg tab(s) (ALDACTONE) 25 mg ORAL DAILY pantoprazole DR 40 mg tab(s) (PROTONIX) 40 mg ORAL DAILY (6 AM) isosorbide mononitrate ER 30 mg tab(s) (IMDUR) 30 mg ORAL DAILY nitroglycerin sublingual 0.4 mg tab(s) (NITROQUICK) 0.4 mg SUBLINGUAL q 5 MIN PRN 0.9% NaCl 3-5 mL 3-5 mL INTRAVENOUS q 12 H furosemide 40 mg injection (LASIX) 40 mg INTRAVENOUS DAILY benzonatate 100 mg cap(s) (TESSALON PERLE) 100 mg ORAL TID insulin lispro injection (rapid acting) (HumaLOG) SUBCUTANEOUS w MEALS insulin lispro injection (rapid acting) (HumaLOG) SUBCUTANEOUS AT BEDTIME READINESS TO LEARN COGNITIVE ABILITY: Alert and oriented MOTIVATION TO LEARN: Eager FAMILY SUPPORT: High - Very involved in pt care INSTRUCTION PROVIDED TO: Patient and Daughter PATIENT LEARNS BEST BY: Unable to Assess FACTORS AFFECTING LEARNING: None PHYSICAL LIMITATIONS AFFECTING LEARNING: None LEARNING RESPONSE DIAGNOSIS: Heart Failure PATIENT/FAMILY RESPONSE: Verbalizes understanding of: The signs and symptoms of a worsening condition that warrant a call to the physician. The correct actions to take to manage symptoms associated with his/her disease/illness. Fluid restrictions Diet / weight monitoring METHOD OF INSTRUCTION: Written instruction - handouts Verbal instruction FOLLOW-UP PLAN: Contact information given. INSTRUCTIONAL AIDS USED: Your Guide to Managing Heart Failure SUPPLEMENTAL MATERIAL PROVIDED: HF zones and HF patient education packet SIGNATURE: AKUA MULLER, CONTACT LENS BLOCKER PAGER: [phone] PT ED Observed: 12/27/2017 Status: COMPLETED Source: [place] 2:45 PM [facility] REPOSITORY [facility] ID: [id number] Author: Akua Muller (Email Administrator) Service: Pharmacy Author Type: Pharmacist Type: Patient Education Filed: 12/27/2017 2:47 PM Note Text: Pharmacy Note Pneumonia Medication Education Patient Name:Josephine Baca Service Date: 12/27/2017 Service Time: 2:45 PM Pneumonia Education Provided: Brief overview of medication management for pneumonia and non pharmacological therapy options (drinking warm fluids, rest, avoiding cigarette smoke, health diet, avoiding heavy alcohol use and other people that are ill). Patient was provided with written and verbal instructions on the types and treatment of pneumonia and monitoring instructions at home Medication Education Provided: 1. Reason for taking medications and treatment goals. 2. Benefits of medication therapy. 3. Potential duration of therapy. 4. Importance of regularly filling prescriptions and taking medications. Patient was given opportunity to ask questions and receive answers. Current hospital medications: meropenem 1 g in D5W 100 mL MB+ (MERREM) 1 g INTRAVENOUS q 8 H aspirin, enteric coated 81 mg tab(s) (ASPIRIN, ENTERIC COATED) 81 mg ORAL DAILY predniSONE 20 mg tab(s) (DELTASONE) 20 mg ORAL DAILY dextrose 40 % 15 g 15 g ORAL PRN glucagon 1 mg injection (GLUCAGEN) 1 mg INTRAMUSCULAR PRN dextrose 50% in water 25 mL syringe 12.5 g INTRAVENOUS PRN nystatin 2 mL oral liquid (MYCOSTATIN) 200,000 Units ORAL QID simvastatin 40 mg tab(s) (ZOCOR) 40 mg ORAL AT BEDTIME gabapentin 600 mg cap(s) (NEURONTIN) 600 mg ORAL BID ipratropium-albuterol 3 mL nebulizer solution (DUONEB) 3 mL INHALATION q 4 H while awake colchicine 0.6 mg tab(s) 0.6 mg ORAL DAILY apixaban 5 mg tab(s) (ELIQUIS) 5 mg ORAL BID insulin lispro 10 Units injection (rapid acting) (HumaLOG) 10 Units SUBCUTANEOUS TID w MEALS insulin glargine 45 Units injection (long acting) (LANTUS) 45 Units SUBCUTANEOUS DAILY (8 AM) insulin glargine 30 Units injection (long acting) (LANTUS) 30 Units SUBCUTANEOUS AT BEDTIME guaiFENesin-dextromethorphan 100-10 mg/5 mL 5-10 mL oral liquid (ROBITUSSIN DM) 5-10 mL ORAL q 6 H PRN potassium chloride ER 10 mEq tab(s) (K-DUR, KLOR-CON) 10 mEq ORAL DAILY spironolactone 25 mg tab(s) (ALDACTONE) 25 mg ORAL DAILY pantoprazole DR 40 mg tab(s) (PROTONIX) 40 mg ORAL DAILY (6 AM) isosorbide mononitrate ER 30 mg tab(s) (IMDUR) 30 mg ORAL DAILY nitroglycerin sublingual 0.4 mg tab(s) (NITROQUICK) 0.4 mg SUBLINGUAL q 5 MIN PRN 0.9% NaCl 3-5 mL 3-5 mL INTRAVENOUS q 12 H furosemide 40 mg injection (LASIX) 40 mg INTRAVENOUS DAILY benzonatate 100 mg cap(s) (TESSALON PERLE) 100 mg ORAL TID insulin lispro injection (rapid acting) (HumaLOG) SUBCUTANEOUS w MEALS insulin lispro injection (rapid acting) (HumaLOG) SUBCUTANEOUS AT BEDTIME READINESS TO LEARN COGNITIVE ABILITY: Alert and oriented MOTIVATION TO LEARN: Eager FAMILY SUPPORT: High - Very involved in pt care INSTRUCTION PROVIDED TO: Patient and Daughter PATIENT LEARNS BEST BY: Unable to Assess FACTORS AFFECTING LEARNING: None PHYSICAL LIMITATIONS AFFECTING LEARNING: None LEARNING RESPONSE DIAGNOSIS: Pneumonia PATIENT/FAMILY RESPONSE: Verbalizes understanding of: The signs and symptoms of a worsening condition that warrant a call to the physician. The correct actions to take to manage symptoms associated with his/her disease/illness. The physical restrictions and recommendations after discharge from the hospital. Importance of completing all medications METHOD OF INSTRUCTION: Written instruction - handouts Verbal instruction FOLLOW-UP PLAN: Complete - Contact information given INSTRUCTIONAL AIDS USED: GUIDE TO PNEUMONIA HEALTH INFORMATION and PNEUMONIA ZONES HEALTH INFORMATION SIGNATURE: AKUA MULLER, CONTACT LENS BLOCKER PAGER: [phone] PROGRESS Observed: 12/27/2017 Status: COMPLETED Source: [place] 1:40 PM CLINIC OTHER CAMPUS REPOSITORY O ID: [id number] Author: Peyman Guerrero Service: Hospital Medicine Author Type: Physician Type: Progress Notes Filed: 12/27/2017 1:50 PM Note Text: HOSPITAL MEDICINE PROGRESS NOTE Name: Luz Baca SERVICE DATE: 12/27/2017 SERVICE TIME: 1:40 PM LOCATION / ROOM: [place] [id number] Hospital Medicine/Primary Attending: Peyman guerrero MD NIGHT COVERAGE BETWEEN 5.30P-7.30A Page [phone] ASSESSMENT AND PLAN HCAP (healthcare-associated pneumonia) Feeling some better today. - most likely have mucus plugs - started with IV Vanco and Aztreonam initially and changed to Cefepime - blood cx- no growth, sputum culture- Few Normal respiratory mitra present , negative nasal MRSA - duoneb q4hr + prn - Mucinex BID - consult ID due to recurrent admission/HCAP for antibiotic choice ?? Acute on chronic combined systolic and diastolic CHF (congestive heart failure) Acute diastolic heart failure (LVEF 50%) HOCM- Status post septal myomectomy at the time of CABG 2003 CAD Status post CABG ?2, 07/18/04, VU to LAD, SVG to PDA; PCI ?6 RCA, 2014 PCI ?3 2015 Status post myocardial perfusion imaging stress test 08/11/17 with possible prior apical infarct and no ischemia, EF 50%. ICD - most likely some fluid overload - Pro BNP 2600 - cont with fluid restriction - Last Echo 12/21/2017 LVEF 50% with Grade 3 diastolic dysfunction - St Rob AICD / PM - minimal rate at 60 - nml function on check today. Result on chart. - negative 4.8 liter so far - consulted Dr. Yeung. - continue diuresis with IV lasix and spironolactone - continue statin - continue apixaban for anticoagulation - resumed aspirin due to multi-vessel PCI in the past ? She can follow up as an outpatient with Dr. Cardona on discharge ? Acute on chronic respiratory failure with hypoxia? - chronic home O2 with 2.5 l/min NC - supplement as needed - back to base line ? COPD with acute exacerbation? - Given on dose in ER with Solumedrol - cont with treatment as above - wean steroids slowly ? Atrial fibrillation - Not on any BB - Cont Eliquis - Rate controlled - on telemetry monitoring noticed to be low 40's in HR - PM/ICD check in AM ?? Diabetes mellitus due to underlying condition, uncontrolled, with stage 3 chronic kidney disease, with long-term current use of insulin On amaryl and sitagliptan Will start sliding scale option 1 coverage Follow accuchecks HgbA1c: >15 (Oct 2707/2018) ?? Carotid artery disease H/O of CABGx2 (DEBORAH-LAD, SVG-PDA ) in 2004 On ezetimibe, simvastatin, metoprolol, benazepril ?? Essential hypertension On metoprolol, norvasc, benazepril will titrate ?? GERD (gastroesophageal reflux disease) On nexium - protonix here ?? Hyperlipidemia On ezetimibe and simvastatin LDL 61 ?? Sleep apnea Should wears CPAP at home But not used for years Last sleep study in possible 2008 ?? Obesity Diet/exercise/weightloss discussed with patient ? SUBJECTIVE INTERVAL HPI: Feels Not much better, no fever, chills, cp nor palpitations. No events overnight MEDICATIONS: Reviewed Current Facility-Administered Medications: cefepime 1 g in D5W 100 mL MB+ (MAXIPIME) 1 g INTRAVENOUS q 12 H Radha Loomis Md Thuestad 1 g at 12/27/17 0809 aspirin, enteric coated 81 mg tab(s) (ASPIRIN, ENTERIC COATED) 81 mg ORAL DAILY Jose C Yeung predniSONE 20 mg tab(s) (DELTASONE) 20 mg ORAL DAILY Radha Lomois Md Thuestad 20 mg at 12/27/17 0809 dextrose 40 % 15 g 15 g ORAL PRN Leandro Kauffman MD Or glucagon 1 mg injection (GLUCAGEN) 1 mg INTRAMUSCULAR PRN Leandro Kauffman MD Or dextrose 50% in water 25 mL syringe 12.5 g INTRAVENOUS PRN Leandro Kauffman MD nystatin 2 mL oral liquid (MYCOSTATIN) 200,000 Units ORAL QID Radha Loomis Md Thuestad 2 mL at 12/27/17 1305 simvastatin 40 mg tab(s) (ZOCOR) 40 mg ORAL AT BEDTIME Radha Loomis Md Thuestad 40 mg at 12/26/17 2041 gabapentin 600 mg cap(s) (NEURONTIN) 600 mg ORAL BID Radha Adams) Thuestad 600 mg at 12/27/17 0809 ipratropium-albuterol 3 mL nebulizer solution (DUONEB) 3 mL INHALATION q 4 H while awake Radha Loomis Md Thuestad 3 mL at 12/27/17 1018 colchicine 0.6 mg tab(s) 0.6 mg ORAL DAILY Radha Adams) Thuestad 0.6 mg at 12/27/17 0809 apixaban 5 mg tab(s) (ELIQUIS) 5 mg ORAL BID Radha Loomis Md Thuestad 5 mg at 12/27/17 0808 insulin lispro 10 Units injection (rapid acting) (HumaLOG) 10 Units SUBCUTANEOUS TID w MEALS Radha Adams) Thuestad 10 Units at 12/27/17 1305 insulin glargine 45 Units injection (long acting) (LANTUS) 45 Units SUBCUTANEOUS DAILY (8 AM) Radha Adams) Thuestad 45 Units at 12/27/17 0809 insulin glargine 30 Units injection (long acting) (LANTUS) 30 Units SUBCUTANEOUS AT BEDTIME Radha Adams) Thuestad 30 Units at 12/26/17 204 guaiFENesin-dextromethorphan 100-10 mg/5 mL 5-10 mL oral liquid (ROBITUSSIN DM) 5-10 mL ORAL q 6 H PRN Radha Adams) Thuestad 10 mL at 12/26/17 0813 potassium chloride ER 10 mEq tab(s) (K-DUR, KLOR-CON) 10 mEq ORAL DAILY [place] Ebonie Adams) Thuestad 10 mEq at 12/27/17 0809 spironolactone 25 mg tab(s) (ALDACTONE) 25 mg ORAL DAILY Radha Adams) Thuestad 25 mg at 12/27/[address] 40 mg tab(s) (PROTONIX) 40 mg ORAL DAILY (6 AM) Radha Adams) Thuestad 40 mg at 12/27/17 0508 isosorbide mononitrate ER 30 mg tab(s) (IMDUR) 30 mg ORAL DAILY Radha Adams) Thuestad 30 mg at 12/27/17 0808 nitroglycerin sublingual 0.4 mg tab(s) (NITROQUICK) 0.4 mg SUBLINGUAL q 5 MIN PRN Radha Mazauestad 0.9% NaCl 3-5 mL 3-5 mL INTRAVENOUS q 12 H Radha Adams) Thuestad 5 mL at 12/27/17 0815 furosemide 40 mg injection (LASIX) 40 mg INTRAVENOUS DAILY Radha Adams) Thuestad 40 mg at 12/27/17 0809 benzonatate 100 mg cap(s) (TESSALON PERLE) 100 mg ORAL TID Hareesh Singam 100 mg at 12/27/17 1305 insulin lispro injection (rapid acting) (HumaLOG) SUBCUTANEOUS w MEALS Caroline (Audio Production Engineer) Garcia 2 Units at 12/27/17 1307 insulin lispro injection (rapid acting) (HumaLOG) SUBCUTANEOUS AT BEDTIME Caroline (Audio Production Engineer) Garcia 2 Units at 12/26/172041 OBJECTIVE PHYSICAL EXAM: BP 133/52 Pulse 67 Temp (Src) 97.7 (Oral) Resp 16 Ht 5' 8 (1.73m) Wt 228 lb 13.4 oz (103.8kg) SpO2 95% BMI 34.80 kg/(m2). GENERAL: Alert, no distress, cooperative, obese SKIN: Skin color, texture, turgor normal. No rashes or lesions. EYES: PERRLA, EOMI OROPHARYNX: Lips, mucosa, and tongue normal. Teeth and gums normal. Oropharynx normal. NECK: No jugulovenous distention, No carotid bruits, Carotid pulse normal contour, Supple LUNGS: Lungs clear to auscultation, Good diaphragmatic excursion CARDIAC: Normal S1 and S2; no rubs, murmurs, or gallops ABDOMEN: Abdomen soft, non-tender, BS normal, No masses or organomegaly EXTREMITIES: Extremities normal, no deformities, edema, clubbing or skin discoloration. Good capillary refill., No ulcers NEURO: Reflexes normal and symmetric. Sensation grossly intact, Cranial nerves II-XII intact PULSES: 2+ radial, 2+ carotid DATA: Diagnostic tests reviewed for today's visit: CBC, Coags, BMP, Mg, Phos Recent Labs 12/27/17 0600 12/26/17 0601 12/25/17 0556 WBC 11.68* 11.25* 14.62* HB 13.0 12.9 12.5 HCT 42.2 42.0 40.6 PLT 126* 125* 135* NA 137 131* 141 K 5.0 Unable to assay. Specimen significantly hemolyzed. 4.9 CHLOR 96* 92* 96* CO2 33* 24 36* BUN 70* 72* 62* CREAT 1.56* 1.47* 1.52* GLUC 235* 438* 144* CA 9.2 8.8 9.2 MG 2.5* 2.5* 2.3 VTE Prophylaxis: Patient is already anti-coagulated. Disposition: Home with [facility] Plan of care discussed with: Patient SIGNATURE: Radha Edmonds MD DATE: December 27, 2017 TIME: 1:50 PM CASE MANAGEM Observed: 12/27/2017 Status: COMPLETED Source: [place] 11:26 AM CLINIC OTHER CAMPUS REPOSITORY [facility] ID: [id number] Author: Radha Bar (Sw) Service: Care Management Author Type: Board Catcher Type: Care Mgt Progress Note Filed: 12/27/2017 11:31 AM Note Text: CARE MANAGEMENT PROGRESS NOTE SERVICE DATE: 12/27/2017 SERVICE TIME: 11:20AM LOS: 4 days EMR reviewed and spoke with RN and MD. Cardiology now on consult. Received IV Lasix. Updated information sent to [facility]. Possible d/c today. CM continuing to follow. 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 - Latex Rash, Itching Itching and welts. No wheezing or shortness of breath. - Penicillins Rash, Itching Tolerated ceftriaxone during 11/2017 admission - Tetracycline Rash, GI Upset Emesis and diarrhea. 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 12/23/2017 at 0900 Yes apixaban (ELIQUIS) 5 mg tab(s) Take 5 mg by mouth twice daily. 12/23/2017 at 0900 Yes furosemide (LASIX) 40 mg tablet Take 60 mg (1.5 tablets) by mouth every morning and 40 mg (1 tablet) every day around noon. 12/23/2017 at 0900 Yes insulin aspart U-100 (NOVOLOG FLEXPEN U-100 INSULIN) 100 unit/mL inpn Inject 15 Units subcutaneously three times daily with meals. 12/23/2017 at 0900 Yes insulin glargine (LANTUS SOLOSTAR U-100 INSULIN) 100 unit/mL (3 mL) inpn Inject 60 Units subcutaneously every morning. 12/23/2017 at 0900 Yes insulin glargine (LANTUS SOLOSTAR U-100 INSULIN) 100 unit/mL (3 mL) inpn Inject 40 Units subcutaneously daily at bedtime. 12/22/2017 at 2200 Yes isosorbide mononitrate ER (IMDUR) 30 mg 24 hr tablet Take 30 mg by mouth once daily. 12/23/2017 at [address] (PROTONIX) 40 mg tablet Take 40 mg by mouth once daily. 12/23/2017 at 0900 Yes simvastatin (ZOCOR) 40 mg tablet Take 40 mg by mouth every morning. 12/23/2017 at 0900 Yes benzonatate (TESSALON PERLE) 100 mg capsule Take 100 mg by mouth three times daily as needed. 12/23/2017 at 0900 Yes spironolactone (ALDACTONE) 25 mg tablet Take 1 tablet by mouth once daily. 12/23/2017 at 0900 Yes nystatin (MYCOSTATIN) 100,000 unit/mL suspension Take 2 mL by mouth four times daily for 7 days. SWISH AND SWALLOW 2 ML 4 TIMES PER DAY. 12/23/2017 at 0900 Yes ipratropium-albuterol (DUONEB) 0.5 mg-3 mg(2.5 mg base)/3 mL nebu Inhale 3 mL as instructed every 4 hours as needed. 12/23/2017 at Unknown time Yes guaiFENesin-dextromethorphan (ROBITUSSIN DM) 100-10 mg/5 mL syrup Take 5-10 mL by mouth every 6 hours as needed for Cough. 12/23/2017 at 0900 Yes nitroglycerin sublingual (NITROQUICK) 0.4 mg SL tablet Dissolve 1 tablet under the tongue every 5 minutes as needed. Unknown at Unknown time Yes albuterol HFA (VENTOLIN HFA) 90 mcg/actuation inhaler Inhale 2 Puffs as instructed every 4 hours as needed. 12/22/2017 at Unknown time Yes OXYGEN, HOME THERAPY, Inhale 2.5 L/min as instructed as directed. Unknown at Unknown time Yes gabapentin (NEURONTIN) 300 mg capsule Take 2 capsules by mouth twice daily for 90 days. potassium chloride ER (K-DUR, KLOR-CON) 10 mEq tablet TAKE ONE TABLET BY MOUTH DAILY WITH BREAKFAST Christina Melendez December 27, 2017 10:32 AM OPERATIVE NO Observed: 12/27/2017 Status: COMPLETED Source: [place] 9:50 AM [facility] OTHER CAMPUS REPOSITORY [facility]NO ID: [id number] Author: Eduardo Mccarty Service: Nutrition Therapy Author Type: Registered Dietitian Type: Operative Report Filed: 12/27/2017 9:53 AM Note Text: NUTRITION THERAPY PROGRESS NOTE SERVICE DATE: 12/27/2017 SERVICE TIME: 9:40 am NUTRITION CARE PLAN Intervention: Monitor intake.Eating 100% Reviewed physician progress notes and labs. Will follow up in 7 days or as consulted. Monitor and Evaluation: Goal: Meet >75% of estimated needs Discharge Nutrition Recommendations: Diet: Carbohydrate Controlled, Electrolyte Controlled 4 gm Na Interval History: HCAP (healthcare-associated pneumonia)-Feeling some better better today. Acute on chronic respiratory failure with hypoxia? Diabetes mellitus due to underlying condition, uncontrolled, with stage 3 chronic kidney disease, with long-term current use of insulin - chronic home O2 with 2.5 l/min NC - supplement as needed - back to base line Admission Weight: 101.6 kg (224 lb) Current Weight: 101 kg (222 lb 9.6 oz) Body mass index is 33.85 kg/(m2). class 2 obesity MNT Billing Type: Re-assess/15 min 1 unit SIGNATURE: Eduardo Mccarty RD, LD PATIENT NAME: Luz Baca DATE: December 27, 2017 TIME: 9:50 AM BASIC METABOLIC PANL Collected: 12/27/2017 Status: F Source: [place] 6:00 AM [facility] OTHER [place] REPOSITORY TYPE CODE TESTS RESULT OUT OF REFERENCE UNITS RANGE LAB GLU 74-99 mg/dL High Glucose 235 Result Comment: The [place] [employer] (ADA) provides guidance for cutoff values for fasting glucose and random glucose. The ADA defines fasting as no caloric intake for at least 8 hours. Fas ting plasma glucose results between 100 to 125 mg/dL indicate increased risk for diabetes (prediabetes). Fasting plasma glucose results greater than or equal to 126 mg/dL meet the criteria for diagnosis of diabetes. In the absence of unequivocal hyperglycemia, results should be confirmed by repeat testing. In a patient with classic symptoms of hyperglycemia or hyperglycemic crisis, random plasma glucose results greater than or equal to 200 mg/dL meet the criteria for diagnosis of diabetes. Reference: Standards of Medical Care in Diabetes 2016, [place] [employer]. Diabetes Care. 2016.39(Suppl 1). LAB BUN 7-21 mg/dL BUN High 70 LAB CRET 0.58-0.96 mg/dL Creatinine High 1.56 LAB NA 136-144 mmol/L Sodium 137 LAB K 3.7-5.1 mmol/L Potassium 5.0 LAB CL 97-105 mmol/L Low Chloride 96 LAB CO2 22-30 mmol/L CO2 High 33 LAB AGAP 9-18 mmol/L Low Anion Gap 8 LAB CA 8.5-10.2 mg/dL Calcium, Total 9.2 LAB GFRAA eGFR- Amer. 39 LAB GFRNAA . eGFR-All Other Races 32 Result Comment: eGFR (Estimated GFR) Units of measure: mL/min/1.73 meters squared eGFR is derived from the reexpressed MDRD Study equation using the following parameters: serum creatinine, age, gender and race. The creatinine assay has been calibrated to be traceable to IDMS. An eGFR <60 mL/min/1.73m2 for >3 months is consistent with chronic kidney disease. Refer to KDOQI guidelines for clinical interpretation. In patients with unstable renal function, e.g. those with acute kidney injury, the eGFR may not accurately reflect actual GFR. Performed By: #### BMP, MG1, CBC #### [facility] [address] [place] [address] MAGNESIUM Collected: 12/27/2017 Status: F Source: [place] 6:00 AM [facility] OTHER CAMPUS REPOSITORY TYPE CODE TESTS RESULT OUT OF REFERENCE UNITS RANGE LAB MG 1.7-2.3 mg/dL High Magnesium 2.5 Performed By: #### BMP, MG1, CBC #### [facility] [address] [place] [address] CBC Collected: 12/27/2017 Status: F Source: [place] 6:00 AM CLIN[facility] OTHER CAMPUS REPOSITORY TYPE CODE TESTS RESULT OUT OF REFERENCE UNITS RANGE LAB WBC 3.70-11.00 k/uL WBC High 11.68 LAB RBC 3.90-5.20 m/uL RBC 4.39 LAB HGB 11.5-15.5 g/dL Hemoglobin 13.0 LAB HCT 36.0-46.0 % Hematocrit 42.2 LAB MCV 80.0-100.0 fL MCV 96.1 LAB MCH 26.0-34.0 pG MCH 29.6 LAB MCHC 30.5-36.0 g/dL MCHC 30.8 LAB RDWCV 11.5-15.0 % RDW-CV High 15.7 LAB PLTCT 150-400 k/uL Low Platelet Count 126 LAB MPV 9.0-12.7 fL MPV 9.7 Performed By: #### BMP, MG1, CBC #### [facility] [address] [facility] [phone] CONSULT Observed: 12/27/2017 Status: COMPLETED Source: [place] 12:00 AM CLINIC OTHER CAMPUS REPOSITORY HNO ID: [id number] Author: Max Reynolds Service: Infectious Disease Author Type: Physician Type: Consults Filed: 12/28/2017 9:27 AM Note Text: [facility]- Consultation BACALUZ ZHONG : 1940 AGE: 77 SEX: F ACCTNUM: [id number] [facility]: [facility] LOCATION: [id number] ATTENDING PHYSICIAN: PEYMAN GUERRERO DATE OF CONSULTATION: 12/27/2017 REFERRING PHYSICIAN: Peyman Guerrero M.D. REASON FOR CONSULTATION: Recurrent pneumonia. HISTORY: The patient is a 77-year-old female with a history of chronic respiratory failure, on 2-1/2 L of oxygen at home, who was recently admitted to [facility] from 12/10/2017 to 12/15/2017 when she had COPD exacerbation and there was concern of possible congestive heart failure as well and possible pneumonia. She was empirically given antibiotics and was discharged on oral antibiotics as well along with steroids. She presented back to the hospital with chest pain and shortness of breath which had been intermittent. She has had difficulty taking deep breaths in. Apparently with pushing on the chest it got worse. The pain was mostly in the midsternal area. She had productive cough with sometimes clear and sometimes benavides yellow phlegm. Upon admission, she was placed on empiric antibiotics. She had a chest x- ray, which showed opacity in the left lung base which was concerning for either atelectasis or consolidation, right basilar atelectasis was also noted. She does recall that she has choking episodes sometimes with liquids including water and also with some solid foods, but she has never had a swallow evaluation before. We have been asked to assist with further management. I did review her recent CT of the chest that was done on 12/10/2017, which showed nonspecific ground-glass airspace disease posterior right lower lobe. Currently, she denies any nausea, vomiting, diarrhea, dysuria, headaches, vision changes. Her white count which was elevated on admission appears to be improving with antibiotic therapy. PAST MEDICAL HISTORY: 1. Recent hospitalization for pneumonia and COPD exacerbation. 2. Atrial fibrillation. 3. Coronary artery disease. 4. Chronic kidney disease stage 4. 5. Severe COPD. 6. Chronic respiratory failure, on 2-1/2 liters of oxygen. 7. Diabetes type 2. 8. Diabetic neuropathy. 9. Gastroesophageal reflux disease. 10.Hypertrophic obstructive cardiomyopathy. 11.Obstructive sleep apnea. PAST SURGICAL HISTORY: 1. She has had a defibrillator placed. 2. Coronary artery bypass grafting. 3. Hysterectomy. 4. Perianal abscess drainage. 5. Cholecystectomy. ALLERGIES: She is listed allergic to penicillin, which causes rash and itching. Tetracycline causes emesis and diarrhea. Bactrim causes throat swelling. MEDICATIONS: Reviewed. FAMILY HISTORY: No infections. SOCIAL HISTORY: She lives at home with her daughter. Used to smoke but quit in 2003. No alcohol abuse. REVIEW OF SYSTEMS: Similar to history of present illness, negative unless otherwise stated PHYSICAL EXAM: She is currently afebrile. Vital signs are stable. She is on 2 L of oxygen. General appearance: She is alert, able to answer questions appropriately, intermittently coughing during exam. Head, eye, ENT: Pupils equal react to light. Oropharynx examination reveals no abnormality. Neck is supple. Lungs: Coarse breath sounds bilaterally. Occasional wheezing as well. Heart: Regular rate and rhythm. Abdomen: Soft, nontender, nondistended. Extremities: No edema. Skin: I did not notice any rash. Neurologically, no focal deficits. Musculoskeletal: No swollen joints. : No CVA tenderness. LABORATORY: White count is 11.6, which has improved from admission; hemoglobin 13; platelets 126, which were low on admission as well. BMP showed a creatinine of 1.56, which is stable. Blood sugars have been haywire since admission. Blood cultures from this admission are negative so far. Sputum culture showed normal respiratory mitra. MRSA nasal swab was negative. Imaging data reviewed. Results were as stated in HPI. IMPRESSION: 1. Bibasilar pneumonia, concern is for aspiration and gram-negative component due to her recent hospitalization. MRSA nasal swab is negative. 2. Leukocytosis, likely due to #1. 3. Acute on chronic respiratory failure, which is improved likely due to #1. 4. Severe COPD. 5. Multiple antibiotic allergies. 6. Thrombocytopenia, which appears to be chronic. 7. Chronic kidney disease stage 4. RECOMMENDATIONS: 1. Start meropenem IV. 2. Check modified barium swallow and consult Speech Therapy. 3. Follow her closely with you. 4. Discussed with the nursing staff and with the patient and her family. Max Reynolds M.D. Infectious Disease AD:[id number] /[id number] PROGRESS Observed: 12/26/2017 Status: COMPLETED Source: [place] 3:13 PM CLINIC OTHER CAMPUS REPOSITORY O ID: [id number] Author: Radha Adams) Kendal Service: Hospital Medicine Author Type: Physician Type: Progress Notes Filed: 12/26/2017 3:18 PM Note Text: HOSPITAL MEDICINE PROGRESS NOTE Name: Luz Baca SERVICE DATE: 12/26/2017 SERVICE TIME: 3:13 PM LOCATION / ROOM: [place] [id number]- Hospital Medicine/Primary Attending: Radha Edmonds MD NIGHT COVERAGE BETWEEN 5.30P-7.30A Page [phone] ASSESSMENT AND PLAN HCAP (healthcare-associated pneumonia) Feeling some better better today. - most likely have mucus plugs - started with IV Vanco and Aztreonam initially and now changed to Cefepime - sputum culture - duoneb q4hr + prn - Mucinex BID ?? Acute on chronic combined systolic and diastolic CHF (congestive heart failure) - most likely some fluid overload - Pro BNP 2600 - cont with fluid restriction - Cont lasix IV - Last Echo 12/21/2017 LVEF 50% with Grade 3 diastolic dysfunction - St Rob AICD / PM - minimal rate at 60 - nml function on check today. Result on chart. - negative 4.8 liter so far - consulted Dr. Yeung. ? Acute on chronic respiratory failure with hypoxia? - chronic home O2 with 2.5 l/min NC - supplement as needed - back to base line ? COPD with acute exacerbation? - Given on dose in ER with Solumedrol - cont with treatment as above - wean steroids slowly ? Atrial fibrillation - Not on any BB - Cont Eliquis - Rate controlled - on telemetry monitoring noticed to be low 40's in HR - PM/ICD check in AM ?? Diabetes mellitus due to underlying condition, uncontrolled, with stage 3 chronic kidney disease, with long-term current use of insulin On amaryl and sitagliptan Will start sliding scale option 1 coverage Follow accuchecks HgbA1c: >15 (Oct 2707/2018) ?? Carotid artery disease H/O of CABGx2 (DEBORAH-LAD, SVG-PDA ) in 2004 On ezetimibe, simvastatin, metoprolol, benazepril ?? Essential hypertension On metoprolol, norvasc, benazepril will titrate ?? GERD (gastroesophageal reflux disease) On nexium - protonix here ?? Hyperlipidemia On ezetimibe and simvastatin LDL 61 ?? Sleep apnea Should wears CPAP at home But not used for years Last sleep study in possible 2008 ?? Obesity Diet/exercise/weightloss discussed with patient ? SUBJECTIVE INTERVAL HPI: Feels Not much better, no fever, chills, cp nor palpitations. No events overnight MEDICATIONS: Reviewed Current Facility-Administered Medications: cefepime 1 g in D5W 100 mL MB+ (MAXIPIME) 1 g INTRAVENOUS q 12 H Radha Adams) Link[place]ellee aspirin, enteric coated 81 mg tab(s) (ASPIRIN, ENTERIC COATED) 81 mg ORAL DAILY Jose C Yeung [START ON 12/27/2017] predniSONE 20 mg tab(s) (DELTASONE) 20 mg ORAL DAILY Radha Adams) Thuestad dextrose 40 % 15 g 15 g ORAL PRN Leandro Kauffman MD Or glucagon 1 mg injection (GLUCAGEN) 1 mg INTRAMUSCULAR PRN Leandro Kauffman MD Or dextrose 50% in water 25 mL syringe 12.5 g INTRAVENOUS PRN Leandro Kauffman MD nystatin 2 mL oral liquid (MYCOSTATIN) 200,000 Units ORAL QID Radhaebonie Adams) Thuestad 2 mL at 12/26/17 1220 simvastatin 40 mg tab(s) (ZOCOR) 40 mg ORAL AT BEDTIME [place] Ebonie Adams) Thuestad 40 mg at 12/25/17 203 gabapentin 600 mg cap(s) (NEURONTIN) 600 mg ORAL BID Radha Ebonie Adams) Thuestad 600 mg at 12/26/17 0811 ipratropium-albuterol 3 mL nebulizer solution (DUONEB) 3 mL INHALATION q 4 H while awake Radha Ebonie Adams) Thuestad 3 mL at 12/26/17 1224 colchicine 0.6 mg tab(s) 0.6 mg ORAL DAILY [place] Ebonie Adams) Thuestad 0.6 mg at 12/26/17 0813 apixaban 5 mg tab(s) (ELIQUIS) 5 mg ORAL BID Radha Ebonie Adams) Thuestad 5 mg at 12/26/17 0812 insulin lispro 10 Units injection (rapid acting) (HumaLOG) 10 Units SUBCUTANEOUS TID w MEALS Radha Adams) Thuestad 10 Units at 12/26/17 1221 insulin glargine 45 Units injection (long acting) (LANTUS) 45 Units SUBCUTANEOUS DAILY (8 AM) Radha Adams) Thuestad 45 Units at 12/26/17 0815 insulin glargine 30 Units injection (long acting) (LANTUS) 30 Units SUBCUTANEOUS AT BEDTIME Radha Adams) Thuestad 30 Units at 12/25/17 2040 guaiFENesin-dextromethorphan 100-10 mg/5 mL 5-10 mL oral liquid (ROBITUSSIN DM) 5-10 mL ORAL q 6 H PRN Radha Adams) Thuestad 10 mL at 12/26/17 0813 potassium chloride ER 10 mEq tab(s) (K-DUR, KLOR-CON) 10 mEq ORAL DAILY Radha A Bryan) Thuestad 10 mEq at 12/26/17 0811 spironolactone 25 mg tab(s) (ALDACTONE) 25 mg ORAL DAILY Radha A Bryan) Thuestad 25 mg at 12/26/[address] 40 mg tab(s) (PROTONIX) 40 mg ORAL DAILY (6 AM) Radha Adams) Thuestad 40 mg at 12/26/17 0540 isosorbide mononitrate ER 30 mg tab(s) (IMDUR) 30 mg ORAL DAILY Radhaebonie Adams) Thuestad 30 mg at 12/26/17 0811 nitroglycerin sublingual 0.4 mg tab(s) (NITROQUICK) 0.4 mg SUBLINGUAL q 5 MIN PRN Radha Adams) Thuestad 0.9% NaCl 3-5 mL 3-5 mL INTRAVENOUS q 12 H [place] Ebonie Adams) Thuestad 3 mL at 12/26/17 0815 furosemide 40 mg injection (LASIX) 40 mg INTRAVENOUS DAILY Radhaebonie Adams) Thuestad 40 mg at 12/26/17 0812 benzonatate 100 mg cap(s) (TESSALON PERLE) 100 mg ORAL TID Hareesh Singam 100 mg at 12/26/17 1221 insulin lispro injection (rapid acting) (HumaLOG) SUBCUTANEOUS w MEALS Caroline (Audio Production Engineer) Garcia 2 Units at 12/26/17 1221 insulin lispro injection (rapid acting) (HumaLOG) SUBCUTANEOUS AT BEDTIME Caroline (Audio Production Engineer) Garcia 6 Units at 12/25/17 2042 OBJECTIVE PHYSICAL EXAM: BP 117/54 Pulse 65 Temp (Src) 97.5 (Oral) Resp 18 Ht 5' 8 (1.73m) Wt 222 lb 9.6 oz (101.0kg) SpO2 90% BMI 33.85 kg/(m2). GENERAL: Alert, no distress, cooperative, obese SKIN: Skin color, texture, turgor normal. No rashes or lesions. EYES: PERRLA, EOMI OROPHARYNX: Lips, mucosa, and tongue normal. Teeth and gums normal. Oropharynx normal. NECK: No jugulovenous distention, No carotid bruits, Carotid pulse normal contour, Supple LUNGS: Lungs clear to auscultation, Good diaphragmatic excursion CARDIAC: Normal S1 and S2; no rubs, murmurs, or gallops ABDOMEN: Abdomen soft, non-tender, BS normal, No masses or organomegaly EXTREMITIES: Extremities normal, no deformities, edema, clubbing or skin discoloration. Good capillary refill., No ulcers NEURO: Reflexes normal and symmetric. Sensation grossly intact, Cranial nerves II-XII intact PULSES: 2+ radial, 2+ carotid DATA: Diagnostic tests reviewed for today's visit: Most recent labs CBC: WBC 11.25 12/26/2017 Hemoglobin 12.9 12/26/2017 Hematocrit 42.0 12/26/2017 Platelet Count 125 12/26/2017 CMP: Sodium 131 12/26/2017 Potassium Unable to assay. Specimen significantly hemolyzed. 12/26/2017 BUN 72 12/26/2017 Creatinine 1.47 12/26/2017 Glucose 438 12/26/2017 Chloride 92 12/26/2017 CO2 Content, Venous 24 12/26/2017 VTE Prophylaxis: Patient is already anti-coagulated. Disposition: Home with [facility] Plan of care discussed with: Patient SIGNATURE: Radha Edmonds MD DATE: December 26, 2017 TIME: 3:13 PM CONSULT Observed: 12/26/2017 Status: COMPLETED Source: [place] 11:08 AM CLINIC OTHER CAMPUS REPOSITORY HNO ID: [id number] Author: Jose C Yeung Service: Clinical Cardiology Author Type: Physician Type: Consults Filed: 12/26/2017 10:27 PM Note Text: BRIEF CONSULT NOTE SERVICE DATE: 12/26/2017 SERVICE TIME: 11:09 AM Patient seen and examined. Full note to follow. ASSESSMENT AND PLAN 1. Acute on chronic hypoxemic/hypercapnic respiratory failure 2. HCAP 3. COPD exacerbation 4. Acute diastolic heart failure (LVEF 50%) 5. HOCM- Status post septal myomectomy at the time of CABG 2003 6. CAD Status post CABG ?2, 07/18/04, VU to LAD, SVG to PDA; PCI ?6 RCA, 2013 PCI ?3 2015 Status post myocardial perfusion imaging stress test 08/11/17 with possible prior apical infarct and no ischemia, EF 50% 7. ICD 8. Bradycardia - this was transient and there is no evidence of pacemaker dysfunction on recent interrogation; her recent telemetry shows lower rate of 60 9. Chronic atrial fibrillation 10. Anticoagulated with apixaban 11. Obstructive sleep apnea Recommend: - continue diuresis with IV lasix and spironolactone - continue statin - continue apixaban for anticoagulation - resume aspirin due to multi-vessel PCI in the past She can follow up as an outpatient with Dr. Cardona on discharge SIGNATURE: Jose C Yeung MD PATIENT NAME: Luz Baca DATE: December 26, 2017 TIME: 11:09 AM PAGER: [phone] CONSULT: CARDIOLOGY SERVICE SERVICE DATE: 12/26/2017 CONSULTING PHYSICIAN: Jose C Yeung MD PCP: Jameson Kamara MD ATTENDING: Radha Adams) Kendal REASON FOR CONSULT: Shortness of Breath Subjective CHIEF COMPLAINT: Pulmonary infiltrate on chest x-ray [R91.8] HISTORY OF PRESENT ILLNESS: Ms. Baca is a 77 year old female who presents for respiratory failure, pneumonia, COPD, acute heart failure. She was recently admitted to [facility] and seen by Dr. Garcia. During that admission she was noted to have very transient bradycardia down to the 40's. On this admission again she was noted to have bradycardia to the 40's very transiently. Device was interrogated and showed that her lower rate was set at 60. No recent ventricular arrhythmias. She is known to have chronic AF. She is currently receiving bolus doses of lasix for diuresis for acute systolic heart failure and her shortness of breath is improving very slowly. PAST MEDICAL HISTORY Diagnosis Date - Arthritis - Atrial fibrillation (HCC) - CAD (coronary artery disease) stents x9, defibrillator, CABG. Seeing Dr. Cardona - Cardiac defibrillator in place - Cardiomegaly - Carotid artery disease (HCC) left - CKD (chronic kidney disease), stage IV ([facility]) - COPD (chronic obstructive pulmonary disease) ([facility]) Dr. Cruz - Depression - Diabetes ([facility]) - Diabetic neuropathy ([facility]) - GERD (gastroesophageal reflux disease) - Gout - HH (hiatus hernia) - HOCM (hypertrophic obstructive cardiomyopathy) ([facility]) - HTN (hypertension) - Hyperlipidemia - Morbid obesity with BMI of 40.0-44.9, adult ([facility]) - Pacemaker - Pneumonia h/o pneumonia/bronchitis - Renal insufficiency 2003 post op - Sleep apnea 2011 not on CPAP, unable to tolerate mask 02/2017 - SVT (supraventricular tachycardia) ([facility]) NSVT and questionable VT in 2003 post op PAST SURGICAL HISTORY Procedure Laterality Date - PAST SURGICAL HISTORY OF 07/18/2004 Septal myectomy and CABG x2 (DEBORAH-LAD, SVG-PDA). - PAST SURGICAL HISTORY OF left breast nodule removed - PAST SURGICAL HISTORY OF hysterectomy - PAST SURGICAL HISTORY OF perianal abscess drained - PAST SURGICAL HISTORY OF cholecystectomy - PAST SURGICAL HISTORY OF skin lesions removed FAMILY HISTORY Problem Relation Age of Onset - Hypertension Mother living at age 93, HTN - Heart Failure Mother [place] - Cancer Father age 71, lung cancer Social History Substance Use Topics - Smoking status: Former Smoker Packs/day: 2.50 Years: 43.00 Types: Cigarettes Start date: 1961 Quit date: 07/07/2004 - Smokeless tobacco: Never Used - Alcohol use No Prior to Admission Medications Prescriptions Last Dose Informant Patient Reported? Taking? OXYGEN, HOME THERAPY, Unknown at Unknown time Yes Yes Sig: Inhale 2.5 L/min as instructed as directed. albuterol (PROVENTIL) 5 mg/mL nebu No No Sig: Inhale 0.5 mL as instructed one time only for 1 dose. 1 DOSE NOW - BACK OFFICE. PLACE 0.5 ML PER DROPPER AND 2.5 ML OF NORMAL SALINE INTO RESERVOIR. albuterol HFA (VENTOLIN HFA) 90 mcg/actuation inhaler 12/22/2017 at Unknown time No Yes Sig: Inhale 2 Puffs as instructed every 4 hours as needed. apixaban (ELIQUIS) 5 mg tab(s) 12/23/2017 at 0900 Yes Yes Sig: Take 5 mg by mouth twice daily. benzonatate (TESSALON PERLE) 100 mg capsule 12/23/2017 at 0900 Yes Yes Sig: Take 100 mg by mouth three times daily as needed. colchicine (COLCRYS) 0.6 mg tablet 12/23/2017 at 0900 Yes Yes Sig: Take 0.6 mg by mouth once daily. furosemide (LASIX) 40 mg tablet 12/23/2017 at 0900 Yes Yes Sig: Take 60 mg (1.5 tablets) by mouth every morning and 40 mg (1 tablet) every day around noon. gabapentin (NEURONTIN) 300 mg capsule No No Sig: Take 2 capsules by mouth three times daily for 30 days. Patient taking differently: Take 600 mg by mouth twice daily. gabapentin (NEURONTIN) 300 mg capsule No No Sig: Take 2 capsules by mouth twice daily for 90 days. guaiFENesin-dextromethorphan (ROBITUSSIN DM) 100-10 mg/5 mL syrup 12/23/2017 at 0900 No Yes Sig: Take 5-10 mL by mouth every 6 hours as needed for Cough. insulin aspart U-100 (NOVOLOG FLEXPEN U-100 INSULIN) 100 unit/mL inpn 12/23/2017 at 0900 Yes Yes Sig: Inject 15 Units subcutaneously three times daily with meals. insulin glargine (LANTUS SOLOSTAR U-100 INSULIN) 100 unit/mL (3 mL) inpn 12/23/2017 at 0900 Yes Yes Sig: Inject 60 Units subcutaneously every morning. insulin glargine (LANTUS SOLOSTAR U-100 INSULIN) 100 unit/mL (3 mL) in 12/22/2017 at 2200 Yes Yes Sig: Inject 40 Units subcutaneously daily at bedtime. ipratropium-albuterol (DUONEB) 0.5 mg-3 mg(2.5 mg base)/3 mL nebu 12/23/2017 at Unknown time No Yes Sig: Inhale 3 mL as instructed every 4 hours as needed. isosorbide mononitrate ER (IMDUR) 30 mg 24 hr tablet 12/23/2017 at 0900 Yes Yes Sig: Take 30 mg by mouth once daily. nitroglycerin sublingual (NITROQUICK) 0.4 mg SL tablet Unknown at Unknown time No Yes Sig: Dissolve 1 tablet under the tongue every 5 minutes as needed. nystatin (MYCOSTATIN) 100,000 unit/mL suspension 12/23/2017 at 0900 No Yes Sig: Take 2 mL by mouth four times daily for 7 days. SWISH AND SWALLOW 2 ML 4 TIMES PER DAY. pantoprazole DR (PROTONIX) 40 mg tablet 12/23/2017 at 0900 Yes Yes Sig: Take 40 mg by mouth once daily. potassium chloride ER (K-DUR, KLOR-CON) 10 mEq tablet No No Sig: TAKE ONE TABLET BY MOUTH DAILY WITH BREAKFAST predniSONE (DELTASONE) 10 mg tablet 12/23/2017 at 0900 Yes Yes Sig: Taper: 40mg PO daily x 3 days, 30mg PO daily x 3 days, 20mg PO daily x 3 days, 10mg PO daily x 3 days, then stop. simvastatin (ZOCOR) 40 mg tablet 12/23/2017 at 0900 Yes Yes Sig: Take 40 mg by mouth every morning. spironolactone (ALDACTONE) 25 mg tablet 12/23/2017 at 0900 No Yes Sig: Take 1 tablet by mouth once daily. Facility-Administered Medications: None Current hospital medications: cefepime 1 g in D5W 100 mL MB+ (MAXIPIME) 1 g INTRAVENOUS q 12 H aspirin, enteric coated 81 mg tab(s) (ASPIRIN, ENTERIC COATED) 81 mg ORAL DAILY [START ON 12/27/2017] predniSONE 20 mg tab(s) (DELTASONE) 20 mg ORAL DAILY dextrose 40 % 15 g 15 g ORAL PRN glucagon 1 mg injection (GLUCAGEN) 1 mg INTRAMUSCULAR PRN dextrose 50% in water 25 mL syringe 12.5 g INTRAVENOUS PRN nystatin 2 mL oral liquid (MYCOSTATIN) 200,000 Units ORAL QID simvastatin 40 mg tab(s) (ZOCOR) 40 mg ORAL AT BEDTIME gabapentin 600 mg cap(s) (NEURONTIN) 600 mg ORAL BID ipratropium-albuterol 3 mL nebulizer solution (DUONEB) 3 mL INHALATION q 4 H while awake colchicine 0.6 mg tab(s) 0.6 mg ORAL DAILY apixaban 5 mg tab(s) (ELIQUIS) 5 mg ORAL BID insulin lispro 10 Units injection (rapid acting) (HumaLOG) 10 Units SUBCUTANEOUS TID w MEALS insulin glargine 45 Units injection (long acting) (LANTUS) 45 Units SUBCUTANEOUS DAILY (8 AM) insulin glargine 30 Units injection (long acting) (LANTUS) 30 Units SUBCUTANEOUS AT BEDTIME guaiFENesin-dextromethorphan 100-10 mg/5 mL 5-10 mL oral liquid (ROBITUSSIN DM) 5-10 mL ORAL q 6 H PRN potassium chloride ER 10 mEq tab(s) (K-DUR, KLOR-CON) 10 mEq ORAL DAILY spironolactone 25 mg tab(s) (ALDACTONE) 25 mg ORAL DAILY pantoprazole DR 40 mg tab(s) (PROTONIX) 40 mg ORAL DAILY (6 AM) isosorbide mononitrate ER 30 mg tab(s) (IMDUR) 30 mg ORAL DAILY nitroglycerin sublingual 0.4 mg tab(s) (NITROQUICK) 0.4 mg SUBLINGUAL q 5 MIN PRN 0.9% NaCl 3-5 mL 3-5 mL INTRAVENOUS q 12 H furosemide 40 mg injection (LASIX) 40 mg INTRAVENOUS DAILY benzonatate 100 mg cap(s) (TESSALON PERLE) 100 mg ORAL TID insulin lispro injection (rapid acting) (HumaLOG) SUBCUTANEOUS w MEALS insulin lispro injection (rapid acting) (HumaLOG) SUBCUTANEOUS AT BEDTIME ALLERGIES Allergen Reactions - Bactrim [Sulfametho* Other: See Comments My throat swells up. - Latex Rash, Itching Itching and welts. No wheezing or shortness of breath. - Penicillins Rash, Itching Tolerated ceftriaxone during 11/2017 admission - Tetracycline Rash, GI Upset Emesis and diarrhea. - Atorvastatin Rash - Codeine Other: See Comments Numbness - Dilaudid [Hydromorp* Mental Status Change - Meperidine - Pentazocine - Pioglitazone Unknown - Propoxyphene CARDIAC STATUS: Chest Pain: Denies Dyspnea: Dyspnea at rest Ankle Edema: Pitting, +2 bilateral to knees Arrhythmia: Negative, Patient denies palpitations, lightheadedness, dizziness, syncope or near syncope. Functional Capacity: Average Activity includes Light activity REVIEW OF SYSTEMS: The following systems were reviewed with the patient, and are unremarkable other than as described below. SYSTEMIC: No fever, chills, or change in weight or appetite HEENT: No recent change in vision or hearing. CARDIOVASCULAR: No murmur, gallop. Denies chest pain or palpitations. GI: No recent nausea, vomiting or diarrhea. : No recent hematuria or dysuria. SKIN: No recent itching or eruption. PSYCH: No recent active anxiety or depression. HEMATOLOGY/ONCOLOGY: No recent diagnosis of bleeding or cancer. ENDOCRINE: No recent polyuria or heat intolerance. NEURO: No recent TIA, stroke or seizures. RHEUMATOLOGY: No recent active connective tissue disease. Objective PHYSICAL EXAM: Pleasant, comfortable, not in acute distress. Awake, alert, oriented times 3. Moves all extremities. SKIN: No rash or lumps. HEENT: Normocephalic, face symmetrical. NECK: Supple, no JVD, no carotid bruit, no thyromegaly. LUNGS: Positive findings: diminished breath sounds throughout CARDIAC: PMI present, RRR, S1 and S2, no S3 or S4, no additional heart sounds or murmurs. ABDOMEN: Soft, nontender, bowel sounds present. EXTREMITIES: Positive findings: Edema: 1+ pitting edema Bilateral knees, No ulcers PULSES: Peripheral pulses present. Body mass index is 33.85 kg/(m2). O2 Therapy: Nasal Cannula No Data Recorded Patient Vitals for the past 48 hrs: BP Temp Temp src Pulse Resp SpO2 12/26/17 2118 148/68 36.5 ?C (97.7 ?F) Oral 65 18 97 % 12/26/172044 - - - 68 18 - 12/26/172035 - - - 63 18 99 % 12/26/17 1557 114/54 36.6 ?C (97.9 ?F) Oral 64 18 95 % 12/26/17 1233 - - - 65 18 - 12/26/17 1223 - - - 65 18 90 % 12/26/17 1121 117/54 - - 64 18 98 % 12/26/17 0854 - - - - 18 - 12/26/17 0845 - - - 69 18 98 % 12/26/17 0744 129/54 36.4 ?C (97.5 ?F) Oral 64 18 99 % 12/26/17 0436 129/58 36.4 ?C (97.5 ?F) Oral 67 18 95 % 12/26/17 0042 111/55 36.5 ?C (97.7 ?F) Oral 60 18 98 % 12/25/17 2252 - - - 68 18 - 12/25/17 2245 - - - 65 18 - 12/25/17 2053 136/67 36.9 ?C (98.4 ?F) Oral 64 18 96 % 12/25/17 1843 - - - 72 18 - 12/25/17 1831 - - - 65 18 95 % 12/25/17 1553 129/70 36.4 ?C (97.5 ?F) Oral 63 18 93 % 12/25/17 1355 - - - 67 18 - 12/25/17 1342 - - - 79 18 92 % 12/25/17 1138 114/56 36.4 ?C (97.5 ?F) Oral 69 18 92 % 12/25/17 1023 - - - 64 18 - 12/25/17 1007 - - - 69 18 96 % 12/25/17 0732 138/68 37 ?C (98.6 ?F) Oral 64 18 93 % 12/25/17 0644 - - - 60 20 99 % 12/25/17 0637 - - - 63 20 96 % 12/25/17 0408 135/84 36.3 ?C (97.3 ?F) Oral 64 22 95 % 12/24/17 2352 130/53 36.4 ?C (97.5 ?F) Oral 63 18 96 % DATA: Diagnostic tests reviewed for today's visit: Most recent labs Most recent imaging Most recent EKG Past 72 Hour Labs: Recent Labs 12/26/17 0601 WBC 11.25* RBC 4.35 HB 12.9 HCT 42.0 MCV 96.6 MCH 29.7 MCHC 30.7 RDWCV 15.8* PLT 125* MPV 10.0 GLUC 438* BUN 72* CREAT 1.47* NA 131* K Unable to assay. Specimen significantly hemolyzed. CHLOR 92* CO2 24 CA 8.8 MG 2.5* Last Lab Drawn: TSH 1.300 2010 Triglyceride 137 05/17/2017 HDL Cholesterol 34 05/17/2017 LDL Cholesterol 84 05/17/2017 Cholesterol, Total 145 05/17/2017 Prior Cardiac Workup: echo 12/21/2017 CONCLUSIONS: - Technically difficult exam due to body habitus and COPD. - Exam indication: s/p myectomy - The left ventricle is normal in size. There is mild left ventricular hypertrophy. Left ventricular systolic function is mildly decreased. EF = 50 ? 5% (visual est.) Grade III left ventricular diastolic dysfunction. - The right ventricle is dilated. Right ventricular systolic function is mildly decreased. - The left atrial cavity is moderately dilated. - The right atrial cavity is dilated. - There is moderate (2+ - 3+) tricuspid valve regurgitation. - Estimated right ventricular systolic pressure is 78 mmHg consistent with moderately severe pulmonary hypertension. Estimated right atrial pressure is 10 mmHg. - Definity contrast could not be administered d/t unavailability of staff. - s/p myectomy: LVOT gradient at rest 6 mmHg, trivial-1+ MR. Patient unable to valsalva. - Exam was compared with the prior echocardiographic exam performed on 09/23/2010. LV function is normal on this study, and the patient appears to be in NSR (was in AF with RVR on prior study) ? ATURE: Jose C Yeung MD PATIENT NAME: Luz Baca DATE: December 26, 2017 TIME: 10:21 PM PAGER/CONTACT #: [phone] CBC Collected: 12/26/2017 Status: F Source: [place] 6:01 AM [facility] OTHER [place] REPOSITORY TYPE CODE TESTS RESULT OUT OF REFERENCE UNITS RANGE LAB WBC 3.70-11.00 k/uL WBC High 11.25 LAB RBC 3.90-5.20 m/uL RBC 4.35 LAB HGB 11.5-15.5 g/dL Hemoglobin 12.9 LAB HCT 36.0-46.0 % Hematocrit 42.0 LAB MCV 80.0-100.0 fL MCV 96.6 LAB MCH 26.0-34.0 pG MCH 29.7 LAB MCHC 30.5-36.0 g/dL MCHC 30.7 LAB RDWCV 11.5-15.0 % RDW-CV High 15.8 LAB PLTCT 150-400 k/uL Low Platelet Count 125 LAB MPV 9.0-12.7 fL MPV 10.0 Performed By: #### CBC, MG1, BMP #### [facility] [address] [place], [place] [id number] MAGNESIUM Collected: 12/26/2017 Status: F Source: [place] 6:01 AM [facility] REPOSITORY TYPE CODE TESTS RESULT OUT OF REFERENCE UNITS RANGE LAB MG 1.7-2.3 mg/dL High Magnesium 2.5 Performed By: #### CBC, MG1, BMP #### [facility] [address] [place], [place] [id number] BASIC METABOLIC PANL Collected: 12/26/2017 Status: F Source: [place] 6:01 [facility] REPOSITORY TYPE CODE TESTS RESULT OUT OF REFERENCE UNITS RANGE LAB GLU 74-99 mg/dL High Glucose 438 Result Comment: The [place] [employer] (ADA) provides guidance for cutoff values for fasting glucose and random glucose. The ADA defines fasting as no caloric intake for at least 8 hours. Fas ting plasma glucose results between 100 to 125 mg/dL indicate increased risk for diabetes (prediabetes). Fasting plasma glucose results greater than or equal to 126 mg/dL meet the criteria for diagnosis of diabetes. In the absence of unequivocal hyperglycemia, results should be confirmed by repeat testing. In a patient with classic symptoms of hyperglycemia or hyperglycemic crisis, random plasma glucose results greater than or equal to 200 mg/dL meet the criteria for diagnosis of diabetes. Reference: Standards of Medical Care in Diabetes 2016, [place] [employer]. Diabetes Care. 2016.39(Suppl 1). LAB BUN 7-21 mg/dL BUN 72 High LAB CRET 0.58-0.96 mg/dL 1.47 High Creatinine LAB NA 136-144 mmol/L Sodium 131 Low LAB K 3.7-5.1 mmol/L Unable to assay. Potassium Specimen significantly hemolyzed. LAB CL 97-105 mmol/L Chloride 92 Low LAB CO2 22-30 mmol/L CO2 24 Result Comment: Rechecked LAB AGAP 9-18 mmol/L Anion Gap 15 LAB CA 8.5-10.2 mg/dL Calcium, Total 8.8 LAB GFRAA eGFR- Amer. 42 LAB GFRNAA . eGFR-All Other Races 35 Result Comment: eGFR (Estimated GFR) Units of measure: mL/min/1.73 meters squared eGFR is derived from the reexpressed MDRD Study equation using the following parameters: serum creatinine, age, gender and race. The creatinine assay has been calibrated to be traceable to IDMS. An eGFR <60 mL/min/1.73m2 for >3 months is consistent with chronic kidney disease. Refer to KDOQI guidelines for clinical interpretation. In patients with unstable renal function, e.g. those with acute kidney injury, the eGFR may not accurately reflect actual GFR. Performed By: #### CBC, MG1, BMP #### [facility] [address] [place] [address] NURSING PROG Observed: 12/25/2017 Status: COMPLETED Source: [place] 7:30 PM CLINIC OTHER CAMPUS REPOSITORY [facility] ID: [id number] Author: Jennifer (Rn) ALLYSON Sevilla Service: (none) Author Type: Registered Nurse Type: Nursing Progress Note Filed: 12/25/2017 8:25 PM Note Text: Nursing Progress Note Patient Name: Luz Baca [place] [facility] [id number] Daily Note: 1930 Resting in bed. States feels she is making only slight progress with breathing. Oxygen on 2 liters. Occasionally productive cough. Slight expiratory wheeze audible. This note was completed by: Jennifer Sevilla RN PROGRESS Observed: 12/25/2017 Status: COMPLETED Source: [place] 1:28 PM CLINIC OTHER CAMPUS REPOSITORY [facility] ID: [id number] Author: Radha Adams) Kendal Service: Hospital Medicine Author Type: Physician Type: Progress Notes Filed: 12/25/2017 3:28 PM Note Text: HOSPITAL MEDICINE PROGRESS NOTE Name: Luz Baca SERVICE DATE: 12/25/2017 SERVICE TIME: 1:28 PM [place] [facility] [id number] Hospital Medicine/Primary Attending: Radha Edmonds MD NIGHT COVERAGE BETWEEN 5.30P-7.30A Page [phone] ASSESSMENT AND PLAN HCAP (healthcare-associated pneumonia) Feeling some better better today. - most likely have mucus plugs - started with IV Vanco and Aztreonam - sputum culture - duoneb q4hr + prn - Mucinex BID ?? Acute on chronic combined systolic and diastolic CHF (congestive heart failure) - most likely some fluid overload - Pro BNP 2600 - cont with fluid restriction - Cont lasix IV - Last Echo 12/21/2017 LVEF 50% with Grade 3 diastolic dysfunction - St Rob AICD / PM - minimal rate at 60 - nml function on check today. Result on chart. - negative 3.5 liter so far Acute on chronic respiratory failure with hypoxia? - chronic home O2 with 2.5 l/min NC - supplement as needed - back to base line COPD with acute exacerbation? - Given on dose in ER with Solumedrol - cont with treatment as above - wean steroids today to 20 mg Atrial fibrillation - Not on any BB - Cont Eliquis - Rate controlled - on telemetry monitoring noticed to be low 40's in HR - PM/ICD check in AM ? Diabetes mellitus due to underlying condition, uncontrolled, with stage 3 chronic kidney disease, with long-term current use of insulin On amaryl and sitagliptan Will start sliding scale option 1 coverage Follow accuchecks HgbA1c: >15 (Oct 2707/2018) ?? Carotid artery disease H/O of CABGx2 (DEBORAH-LAD, SVG-PDA ) in 2004 On ezetimibe, simvastatin, metoprolol, benazepril ?? Essential hypertension On metoprolol, norvasc, benazepril will titrate ?? GERD (gastroesophageal reflux disease) On nexium - protonix here ?? Hyperlipidemia On ezetimibe and simvastatin LDL 61 ?? Sleep apnea Should wears CPAP at home But not used for years Last sleep study in possible 2008 ?? Obesity Diet/exercise/weightloss discussed with patient ? SUBJECTIVE INTERVAL HPI: Feels not much better and still feels SOB. No fever, chills, cp nor palpitations. No events overnight. MEDICATIONS: Reviewed Current Facility-Administered Medications: cefepime 2 g in D5W 100 mL MB+ (MAXIPIME) 2 g INTRAVENOUS q 12 H Radha Adams) Thuestad 2 g at 12/25/17 0816 dextrose 40 % 15 g 15 g ORAL PRN Leandro Kauffman MD Or glucagon 1 mg injection (GLUCAGEN) 1 mg INTRAMUSCULAR PRN Leandro Kauffman MD Or dextrose 50% in water 25 mL syringe 12.5 g INTRAVENOUS PRN Leandro Kauffman MD nystatin 2 mL oral liquid (MYCOSTATIN) 200,000 Units ORAL QID Radha Adams) Thuestad 2 mL at 12/25/17 1241 simvastatin 40 mg tab(s) (ZOCOR) 40 mg ORAL AT BEDTIME [place]ie Adams) Thuestad 40 mg at 12/24/17 2128 gabapentin 600 mg cap(s) (NEURONTIN) 600 mg ORAL BID Radha Ebonie Adams) Thuestad 600 mg at 12/25/17 0813 ipratropium-albuterol 3 mL nebulizer solution (DUONEB) 3 mL INHALATION q 4 H while awake Radhaebonie Adams) Thuestad 3 mL at 12/25/17 1005 colchicine 0.6 mg tab(s) 0.6 mg ORAL DAILY [place] Ebonie Adams) Thuestad 0.6 mg at 12/25/17 0815 apixaban 5 mg tab(s) (ELIQUIS) 5 mg ORAL BID [place] Ebonie Adams) Thuestad 5 mg at 12/25/17 0815 predniSONE 40 mg tab(s) (DELTASONE) 40 mg ORAL DAILY [place] Ebonie Adams) Thuestad 40 mg at 12/25/17 0813 insulin lispro 10 Units injection (rapid acting) (HumaLOG) 10 Units SUBCUTANEOUS TID w MEALS Radha Adams) Thuestad 10 Units at 12/25/17 1241 insulin glargine 45 Units injection (long acting) (LANTUS) 45 Units SUBCUTANEOUS DAILY (8 AM) Radha Adams) Thuestad 45 Units at 12/25/17 0821 insulin glargine 30 Units injection (long acting) (LANTUS) 30 Units SUBCUTANEOUS AT BEDTIME Radha Adams) Thuestad 30 Units at 12/24/17 2129 guaiFENesin-dextromethorphan 100-10 mg/5 mL 5-10 mL oral liquid (ROBITUSSIN DM) 5-10 mL ORAL q 6 H PRN Radha Adams) Thuestad 10 mL at 12/25/17 0816 potassium chloride ER 10 mEq tab(s) (K-DUR, KLOR-CON) 10 mEq ORAL DAILY Radha Adams) Thuestad 10 mEq at 12/25/17 0814 spironolactone 25 mg tab(s) (ALDACTONE) 25 mg ORAL DAILY Radha Adams) Thuestad 25 mg at 12/25/[address] 40 mg tab(s) (PROTONIX) 40 mg ORAL DAILY (6 AM) Radha Adams) Thuestad 40 mg at 12/25/17 0604 isosorbide mononitrate ER 30 mg tab(s) (IMDUR) 30 mg ORAL DAILY Radah Adams) Thuestad 30 mg at 12/25/17 0815 nitroglycerin sublingual 0.4 mg tab(s) (NITROQUICK) 0.4 mg SUBLINGUAL q 5 MIN PRN Radha Adams) Linkuestad 0.9% NaCl 3-5 mL 3-5 mL INTRAVENOUS q 12 H Radha Adams) Thuestad 5 mL at 12/25/17 0819 furosemide 40 mg injection (LASIX) 40 mg INTRAVENOUS DAILY Radha Adams) Thuestad 40 mg at 12/25/17 0816 benzonatate 100 mg cap(s) (TESSALON PERLE) 100 mg ORAL TID Stephan Demarco 100 mg at 12/25/17 1241 insulin lispro injection (rapid acting) (HumaLOG) SUBCUTANEOUS w MEALS Caroline (Audio Production Engineer) Garcia 2 Units at 12/25/17 1243 insulin lispro injection (rapid acting) (HumaLOG) SUBCUTANEOUS AT BEDTIME Caroline (Audio Production Engineer) Garcia OBJECTIVE PHYSICAL EXAM: BP 114/56 Pulse 69 Temp (Src) 97.5 (Oral) Resp 18 Ht 5' 8 (1.73m) Wt 222 lb 9.6 oz (101.0kg) SpO2 92% BMI 33.85 kg/(m2). GENERAL: Alert, no distress, cooperative, but still SOB SKIN: Skin color, texture, turgor normal. No rashes or lesions. EYES: PERRLA, EOMI OROPHARYNX: Lips, mucosa, and tongue normal. Teeth and gums normal. Oropharynx normal. NECK: No jugulovenous distention, No carotid bruits, Carotid pulse normal contour, Supple LUNGS: Lungs minimal rales. CARDIAC: Normal S1 and S2; no rubs, murmurs, or gallops ABDOMEN: Abdomen soft, non-tender, BS normal, No masses or organomegaly EXTREMITIES: Extremities normal, no deformities, edema, clubbing or skin discoloration. Good capillary refill., No ulcers NEURO: Reflexes normal and symmetric. Sensation grossly intact, Cranial nerves II-XII intact PULSES: 2+ radial, 2+ carotid DATA: Diagnostic tests reviewed for today's visit: Most recent labs CBC: WBC 14.62 12/25/2017 Hemoglobin 12.5 12/25/2017 Hematocrit 40.6 12/25/2017 Platelet Count 135 12/25/2017 CMP: Sodium 141 12/25/2017 Potassium 4.9 12/25/2017 BUN 62 12/25/2017 Creatinine 1.52 12/25/2017 Glucose 144 12/25/2017 Chloride 96 12/25/2017 CO2 Content, Venous 36 12/25/2017 VTE Prophylaxis: Patient is already anti-coagulated. Disposition: Home with [facility] Plan of care discussed with: Patient SIGNATURE: Radha Edmonds MD DATE: December 25, 2017 TIME: 1:28 PM NURSING PROG Observed: 12/25/2017 Status: COMPLETED Source: [place] 8:09 AM CLINIC OTHER CAMPUS REPOSITORY [facility] ID: [id number] Author: Chantelle (Rn) Bronson, RN Service: Nursing Author Type: Registered Nurse Type: Nursing Progress Note Filed: 12/25/2017 8:11 AM Note Text: Nursing Progress Note Patient Name: Luz Baca [place] [facility] [id number] Daily Note: 0809- Patient gluc 104. Patient has scheduled [address] Edmonds made aware and stated to only give 4 units. This note was completed by: Chantelle Dobson, RN CBC Collected: 12/25/2017 Status: F Source: [place] 5:56 AM [facility] OTHER CAMPUS REPOSITORY TYPE CODE TESTS RESULT OUT OF REFERENCE UNITS RANGE LAB WBC 3.70-11.00 k/uL WBC High 14.62 LAB RBC 3.90-5.20 m/uL RBC 4.21 LAB HGB 11.5-15.5 g/dL Hemoglobin 12.5 LAB HCT 36.0-46.0 % Hematocrit 40.6 LAB MCV 80.0-100.0 fL MCV 96.4 LAB MCH 26.0-34.0 pG MCH 29.7 LAB MCHC 30.5-36.0 g/dL MCHC 30.8 LAB RDWCV 11.5-15.0 % RDW-CV High 15.8 LAB PLTCT 150-400 k/uL Low Platelet Count 135 LAB MPV 9.0-12.7 fL MPV 10.0 Performed By: #### CBC, BMP, MG1 #### [facility] [address] [facility] [phone] BASIC METABOLIC PANL Collected: 12/25/2017 Status: F Source: [place] 5:56 AM [facility] OTHER CAMPUS REPOSITORY TYPE CODE TESTS RESULT OUT OF REFERENCE UNITS RANGE LAB GLU 74-99 mg/dL High Glucose 144 Result Comment: The [place] [employer] (ADA) provides guidance for cutoff values for fasting glucose and random glucose. The ADA defines fasting as no caloric intake for at least 8 hours. Fas ting plasma glucose results between 100 to 125 mg/dL indicate increased risk for diabetes (prediabetes). Fasting plasma glucose results greater than or equal to 126 mg/dL meet the criteria for diagnosis of diabetes. In the absence of unequivocal hyperglycemia, results should be confirmed by repeat testing. In a patient with classic symptoms of hyperglycemia or hyperglycemic crisis, random plasma glucose results greater than or equal to 200 mg/dL meet the criteria for diagnosis of diabetes. Reference: Standards of Medical Care in Diabetes 2016, [place] [employer]. Diabetes Care. 2016.39(Suppl 1). LAB BUN 7-21 mg/dL BUN High 62 LAB CRET 0.58-0.96 mg/dL Creatinine High 1.52 LAB NA 136-144 mmol/L Sodium 141 LAB K 3.7-5.1 mmol/L Potassium 4.9 LAB CL 97-105 mmol/L Low Chloride 96 LAB CO2 22-30 mmol/L CO2 High 36 LAB AGAP 9-18 mmol/L Anion Gap 9 LAB CA 8.5-10.2 mg/dL Calcium, Total 9.2 LAB GFRAA eGFR- Amer. 40 LAB GFRNAA . eGFR-All Other Races 33 Result Comment: eGFR (Estimated GFR) Units of measure: mL/min/1.73 meters squared eGFR is derived from the reexpressed MDRD Study equation using the following parameters: serum creatinine, age, gender and race. The creatinine assay has been calibrated to be traceable to IDMS. An eGFR <60 mL/min/1.73m2 for >3 months is consistent with chronic kidney disease. Refer to KDOQI guidelines for clinical interpretation. In patients with unstable renal function, e.g. those with acute kidney injury, the eGFR may not accurately reflect actual GFR. Performed By: #### CBC, BMP, MG1 #### [facility] [address] [place] [address] MAGNESIUM Collected: 12/25/2017 Status: F Source: [place] 5:56 AM [facility] OTHER CAMPUS REPOSITORY TYPE CODE TESTS RESULT OUT OF REFERENCE UNITS RANGE LAB MG 1.7-2.3 mg/dL Magnesium 2.3 Performed By: #### CBC, BMP, MG1 #### [facility] [address] [place] [address] NUTRITION Observed: 12/24/2017 Status: COMPLETED Source: [place] 5:52 PM CLINIC OTHER CAMPUS REPOSITORY [facility] ID: [id number] Author: Eduardo Mccarty Service: Nutrition Therapy Author Type: Registered Dietitian Type: Nutrition Filed: 12/24/2017 5:54 PM Note Text: 1:30 pm NUTRITION THERAPY FOLLOW-UP NOTE SERVICE DATE: 12/24/2017 SERVICE TIME: 1:30 pm Anthropometrics: Height: 172.7 cm (5' 8) Current Weight: Weight: 101 kg (222 lb 9.6 oz) Body mass index is 33.85 kg/(m2). Admitting Diagnosis: Pulmonary infiltrate on chest x-ray [R91.8] HX: DM Present Diet Order: Carbohydrate Controlled, Electrolyte Controlled 4 gm Na and Fluid restriction of 1400 ml Reason for Visit: Nursing Admission Assessment Malnutrition Score Tool: 3 Plan of Care: Recommendation Monitor intake. Reviewed physician progress notes and labs. Will follow up in 3 days or as consulted. Discharge Plan: Carbohydrate Controlled, Electrolyte Controlled 4 gm Na MNT Billing Type: Initial Assess/15 min 1 unit SIGNATURE: Eduardo Mccarty RD, LD PATIENT NAME: Luz Baca DATE: December 24, 2017 TIME: 5:52 PM PROGRESS Observed: 12/24/2017 Status: COMPLETED Source: [place] 4:11 PM [facility] OTHER [place] REPOSITORY [facility] ID: [id number] Author: Vu Stein (Email Administrator) Service: Pharmacy Author Type: Pharmacist Type: Progress Notes Filed: 12/24/2017 4:11 PM Note Text: PHARMACY VANCOMYCIN DOSING NOTE Patient Name: Luz Baca Admission Date: 12/23/2017 Date of Consult: 12/24/2017 Time of Consult: 4:11 PM Indication: Pneumonia Goal Range: 15-25 mcg/mL RECOMMENDATIONS/PLAN: Pharmacy consulted for vancomycin dosing for Luz Baca, a 77 year old, female who is being treated with vancomycin for pneumonia. 1. The primary service has discontinued vancomycin therapy. Pharmacy vancomycin dosing service will sign off. Thank you for allowing us to participate in this patient's care. Please contact pharmacy if questions. Vu Stein, Pharm.D, Email Administrator [phone] PROGRESS Observed: 12/24/2017 Status: COMPLETED Source: [place] 4:08 PM [facility] REPOSITORY [facility] ID: [id number] Author: Vu Stein (Email Administrator) Service: Pharmacy Author Type: Pharmacist Type: Progress Notes Filed: 12/24/2017 4:11 PM Note Text: Antimicrobial Stewardship [id number] Patient: Luz Baca Age: [age] year old Allergies: ALLERGIES Allergen Reactions - Bactrim [Sulfametho* Other: See Comments My throat swells up. - Latex Rash, Itching Itching and welts. No wheezing or shortness of breath. - Penicillins Rash, Itching Tolerated ceftriaxone during 11/2017 admission - Tetracycline Rash, GI Upset Emesis and diarrhea. - Atorvastatin Rash - Codeine Other: See Comments Numbness - Dilaudid [Hydromorp* Mental Status Change - Meperidine - Pentazocine - Pioglitazone Unknown - Propoxyphene Admit Date: 12/23/2017 12:59 PM Antibiotic Review: Current Antibiotic: Vancomycin and Aztreonam Indication: Pneumonia Recommendations on 12/24/2017: Based on the review of the patient?s medical record and documentation, the Antimicrobial Stewardship Team recommends changes to antimicrobials as recommended below. Recommendation: discontinue vancomycin and adjust aztreonam to cefepime (patient has tolerated ceftriaxone in the past) Dr. Edmonds was contacted to discuss the above recommendations. The following changes/clarifications were authorized for Ms. Baca - Discontinued: Vancomycin, aztreonam - Begin: Cefepime Current Meds: Current hospital medications: dextrose 40 % 15 g 15 g ORAL PRN glucagon 1 mg injection (GLUCAGEN) 1 mg INTRAMUSCULAR PRN dextrose 50% in water 25 mL syringe 12.5 g INTRAVENOUS PRN nystatin 2 mL oral liquid (MYCOSTATIN) 200,000 Units ORAL QID simvastatin 40 mg tab(s) (ZOCOR) 40 mg ORAL AT BEDTIME gabapentin 600 mg cap(s) (NEURONTIN) 600 mg ORAL BID ipratropium-albuterol 3 mL nebulizer solution (DUONEB) 3 mL INHALATION q 4 H while awake colchicine 0.6 mg tab(s) 0.6 mg ORAL DAILY apixaban 5 mg tab(s) (ELIQUIS) 5 mg ORAL BID predniSONE 40 mg tab(s) (DELTASONE) 40 mg ORAL DAILY insulin lispro 10 Units injection (rapid acting) (HumaLOG) 10 Units SUBCUTANEOUS TID w MEALS insulin glargine 45 Units injection (long acting) (LANTUS) 45 Units SUBCUTANEOUS DAILY (8 AM) insulin glargine 30 Units injection (long acting) (LANTUS) 30 Units SUBCUTANEOUS AT BEDTIME guaiFENesin-dextromethorphan 100-10 mg/5 mL 5-10 mL oral liquid (ROBITUSSIN DM) 5-10 mL ORAL q 6 H PRN potassium chloride ER 10 mEq tab(s) (K-DUR, KLOR-CON) 10 mEq ORAL DAILY spironolactone 25 mg tab(s) (ALDACTONE) 25 mg ORAL DAILY pantoprazole DR 40 mg tab(s) (PROTONIX) 40 mg ORAL DAILY (6 AM) isosorbide mononitrate ER 30 mg tab(s) (IMDUR) 30 mg ORAL DAILY nitroglycerin sublingual 0.4 mg tab(s) (NITROQUICK) 0.4 mg SUBLINGUAL q 5 MIN PRN 0.9% NaCl 3-5 mL 3-5 mL INTRAVENOUS q 12 H furosemide 40 mg injection (LASIX) 40 mg INTRAVENOUS DAILY aztreonam 1 g in D5W 100 mL MB+ (AZACTAM) 1 g INTRAVENOUS q 8 HR vancomycin dosing and monitoring per pharmacy OTHER As Directed vancomycin 1.5 g in D5W 250 mL (VANCOCIN) 1.5 g INTRAVENOUS q 24 HR benzonatate 100 mg cap(s) (TESSALON PERLE) 100 mg ORAL TID insulin lispro injection (rapid acting) (HumaLOG) SUBCUTANEOUS w MEALS insulin lispro injection (rapid acting) (HumaLOG) SUBCUTANEOUS AT BEDTIME Labs/Vitals on 12/24/2017: WBC Date Value Ref Range Status 12/24/2017 16.13 (H) 3.70 - 11.00 k/uL Final 12/23/2017 13.04 (H) 3.70 - 11.00 k/uL Final 12/15/2017 16.09 (H) 3.70 - 11.00 k/uL Final Creatinine Date Value Ref Range Status 12/24/2017 1.35 (H) 0.58 - 0.96 mg/dL Final 12/23/2017 1.19 (H) 0.58 - 0.96 mg/dL Final 12/15/2017 1.78 (H) 0.58 - 0.96 mg/dL Final Temp (24hrs), Av.6 ?C (97.9 ?F), Min:36.3 ?C (97.3 ?F), Max:37.1 ?C (98.8 ?F) Thank you for allowing me to participate in the care of this patient. Vu Stein, Pharm.D, Email Administrator Home And School Visitor from the Antimicrobial Stewardship Team Pharmacy Extension: [phone] PROGRESS Observed: 12/24/2017 Status: COMPLETED Source: [place] 2:00 PM CLINIC OTHER CAMPUS REPOSITORY O ID: [id number] Author: Radha Adams) Kendal Service: Hospital Medicine Author Type: Physician Type: Progress Notes Filed: 12/25/2017 1:11 AM Note Text: HOSPITAL MEDICINE PROGRESS NOTE Name: Luz Baca SERVICE DATE: 12/24/2017 SERVICE TIME: 2:01 PM LOCATION / ROOM: [place] [id number] Hospital Medicine/Primary Attending: Radha Edmonds MD NIGHT COVERAGE BETWEEN 5.30P-7.30A Page [phone] ASSESSMENT AND PLAN HCAP (healthcare-associated pneumonia) Feeling some better better today. - most likely have mucus plugs - started with IV Vanco and Aztreonam - sputum culture - duoneb q4hr + prn - Mucinex BID ? Acute on chronic combined systolic and diastolic CHF (congestive heart failure) - most likely some fluid overload - Pro BNP 2600 - cont with fluid restriction - Cont lasix IV - Last Echo 12/21/2017 LVEF 50% with Grade 3 diastolic dysfunction ? Acute on chronic respiratory failure with hypoxia - chronic home O2 with 2.5 l/min NC - supplement as needed ? COPD with acute exacerbation - Given on dose in ER with Solumedrol - cont with treatment as above ? Atrial fibrillation - Not on any BB - Cont Eliquis - Rate controlled - on telemetry monitoring noticed to be low 40's in HR - PM/ICD check in AM Diabetes mellitus due to underlying condition, uncontrolled, with stage 3 chronic kidney disease, with long-term current use of insulin On amaryl and sitagliptan Will start sliding scale option 1 coverage Follow accuchecks HgbA1c: >15 (Oct 2707/2018) ? Carotid artery disease H/O of CABGx2 (DEBORAH-LAD, SVG-PDA ) in 2004 On ezetimibe, simvastatin, metoprolol, benazepril ? Essential hypertension On metoprolol, norvasc, benazepril will titrate ? GERD (gastroesophageal reflux disease) On nexium - protonix here ? Hyperlipidemia On ezetimibe and simvastatin LDL 61 ? Sleep apnea Should wears CPAP at home But not used for years Last sleep study in possible 2008 ? Obesity Diet/exercise/weightloss discussed with patient ? SUBJECTIVE INTERVAL HPI: Feels better, no fever, chills, cp nor palpitations. No events overnight MEDICATIONS: Reviewed Current Facility-Administered Medications: cefepime 2 g in D5W 100 mL MB+ (MAXIPIME) 2 g INTRAVENOUS q 12 H Radha Adams) Thuestad 2 g at 12/24/17 1836 dextrose 40 % 15 g 15 g ORAL PRN Leandro Kauffman MD Or glucagon 1 mg injection (GLUCAGEN) 1 mg INTRAMUSCULAR PRN Leandro Kauffman MD Or dextrose 50% in water 25 mL syringe 12.5 g INTRAVENOUS PRN Leandro Kauffman MD nystatin 2 mL oral liquid (MYCOSTATIN) 200,000 Units ORAL QID Radha Adams) Thuestad 2 mL at 12/24/172128 simvastatin 40 mg tab(s) (ZOCOR) 40 mg ORAL AT BEDTIME Radha Adams) Thuestad 40 mg at 12/24/172127 gabapentin 600 mg cap(s) (NEURONTIN) 600 mg ORAL BID Radhaebonie Adams) Thuestad 600 mg at 12/24/172127 ipratropium-albuterol 3 mL nebulizer solution (DUONEB) 3 mL INHALATION q 4 H while awake Radha Adams) Thuestad 3 mL at 12/24/17 2049 colchicine 0.6 mg tab(s) 0.6 mg ORAL DAILY Wind Gapebnoie Adams) Thuestad 0.6 mg at 12/24/17 0832 apixaban 5 mg tab(s) (ELIQUIS) 5 mg ORAL BID Radha Adams) Thuestad 5 mg at 12/24/17 2128 predniSONE 40 mg tab(s) (DELTASONE) 40 mg ORAL DAILY Radhaebonie Adams) Thuestad 40 mg at 12/24/17 0829 insulin lispro 10 Units injection (rapid acting) (HumaLOG) 10 Units SUBCUTANEOUS TID w MEALS Radha Adams) Thuestad 10 Units at 12/24/17 1838 insulin glargine 45 Units injection (long acting) (LANTUS) 45 Units SUBCUTANEOUS DAILY (8 AM) Radha Adams) Thuestad 45 Units at 12/24/17 0832 insulin glargine 30 Units injection (long acting) (LANTUS) 30 Units SUBCUTANEOUS AT BEDTIME Radha Adams) Thuestad 30 Units at 12/24/17 212 guaiFENesin-dextromethorphan 100-10 mg/5 mL 5-10 mL oral liquid (ROBITUSSIN DM) 5-10 mL ORAL q 6 H PRN Radha Adams) Thuestad potassium chloride ER 10 mEq tab(s) (K-DUR, KLOR-CON) 10 mEq ORAL DAILY Radha Loomis Md Thuestad 10 mEq at 12/24/17 0830 spironolactone 25 mg tab(s) (ALDACTONE) 25 mg ORAL DAILY Radha Adams) Thuestad 25 mg at 12/24/[address] 40 mg tab(s) (PROTONIX) 40 mg ORAL DAILY (6 AM) Radha Loomis Md Thuestad 40 mg at 12/24/17 0613 isosorbide mononitrate ER 30 mg tab(s) (IMDUR) 30 mg ORAL DAILY Radha Loomis Md Thuestad 30 mg at 12/24/17 0829 nitroglycerin sublingual 0.4 mg tab(s) (NITROQUICK) 0.4 mg SUBLINGUAL q 5 MIN PRN Radha Mazauestad 0.9% NaCl 3-5 mL 3-5 mL INTRAVENOUS q 12 H Radha Loomis Md Thuestad 5 mL at 12/24/17 212 furosemide 40 mg injection (LASIX) 40 mg INTRAVENOUS DAILY Radha Adams) Thuestad 40 mg at 12/24/17 0826 benzonatate 100 mg cap(s) (TESSALON PERLE) 100 mg ORAL TID Hareesh Singam 100 mg at 12/24/172127 insulin lispro injection (rapid acting) (HumaLOG) SUBCUTANEOUS w MEALS [facility] ([facility] Garcia 8 Units at 12/24/17 1327 insulin lispro injection (rapid acting) (HumaLOG) SUBCUTANEOUS AT BEDTIME [facility] ([facility]) Garcia OBJECTIVE PHYSICAL EXAM: BP 130/53 Pulse 63 Temp (Src) 97.5 (Oral) Resp 18 Ht 5' 8 (1.73m) Wt 222 lb 9.6 oz (101.0kg) SpO2 96% BMI 33.85 kg/(m2). GENERAL: Alert, no distress, cooperative, Obese SKIN: Skin color, texture, turgor normal. No rashes or lesions. EYES: PERRLA, EOMI OROPHARYNX: Lips, mucosa, and tongue normal. Teeth and gums normal. Oropharynx normal. NECK: No jugulovenous distention, No carotid bruits, Carotid pulse normal contour, Supple LUNGS: Lungs clear to auscultation, Good diaphragmatic excursion CARDIAC: Normal S1 and S2; no rubs, murmurs, or gallops ABDOMEN: Abdomen soft, non-tender, BS normal, No masses or organomegaly EXTREMITIES: Extremities normal, no deformities, edema, clubbing or skin discoloration. Good capillary refill., No ulcers NEURO: Gait normal. Reflexes normal and symmetric. Sensation grossly intact, Cranial nerves II-XII intact PULSES: 2+ radial, 2+ carotid DATA: Diagnostic tests reviewed for today's visit: Most recent labs CBC: WBC 16.13 12/24/2017 Hemoglobin 12.9 12/24/2017 Hematocrit 41.7 12/24/2017 Platelet Count 135 12/24/2017 CMP: Sodium 139 12/24/2017 Potassium 4.9 12/24/2017 BUN 46 12/24/2017 Creatinine 1.35 12/24/2017 Glucose 371 12/24/2017 Chloride 95 12/24/2017 CO2 Content, Venous 38 12/24/2017 VTE Prophylaxis: Patient is already anti-coagulated. Disposition: Home with [facility] Plan of care discussed with: Patient SIGNATURE: Radha Edmonds MD DATE: December 25, 2017 TIME: 1:01 AM [facility] PCR Collected: 12/24/2017 Status: F Source: [place] 10:40 AM CLINIC OTHER CAMPUS REPOSITORY TYPE CODE TESTS RESULT OUT OF REFERENCE UNITS RANGE LAB [facility] Nasal S aureus Spec Source LAB MRSRES Negative for MRSA MRSA by PCR. PCR LAB SARES Negative for Staph Staphylococcus aureus PCR aureus by PCR. Performed By: #### SAPCR #### [facility] [address] [facility] [phone] [facility] [place] [id number] CBC Collected: 12/24/2017 Status: F Source: [place] 7:28 AM [facility] OTHER CAMPUS REPOSITORY TYPE CODE TESTS RESULT OUT OF REFERENCE UNITS RANGE LAB WBC 3.70-11.00 k/uL WBC High 16.13 LAB RBC 3.90-5.20 m/uL RBC 4.39 LAB HGB 11.5-15.5 g/dL Hemoglobin 12.9 LAB HCT 36.0-46.0 % Hematocrit 41.7 LAB MCV 80.0-100.0 fL MCV 95.0 LAB MCH 26.0-34.0 pG MCH 29.4 LAB MCHC 30.5-36.0 g/dL MCHC 30.9 LAB RDWCV 11.5-15.0 % RDW-CV High 15.4 LAB PLTCT 150-400 k/uL Low Platelet Count 135 LAB MPV 9.0-12.7 fL MPV 10.1 Performed By: #### CBC, BMP, MG1 #### [facility] [address] [facility] [phone] BASIC METABOLIC PANL Collected: 12/24/2017 Status: F Source: [place] [address] [place] [address] OTHER [place] REPOSITORY TYPE CODE TESTS RESULT OUT OF REFERENCE UNITS RANGE LAB GLU 74-99 mg/dL High Glucose 371 Result Comment: The [place] [employer] (ADA) provides guidance for cutoff values for fasting glucose and random glucose. The ADA defines fasting as no caloric intake for at least 8 hours. Fas ting plasma glucose results between 100 to 125 mg/dL indicate increased risk for diabetes (prediabetes). Fasting plasma glucose results greater than or equal to 126 mg/dL meet the criteria for diagnosis of diabetes. In the absence of unequivocal hyperglycemia, results should be confirmed by repeat testing. In a patient with classic symptoms of hyperglycemia or hyperglycemic crisis, random plasma glucose results greater than or equal to 200 mg/dL meet the criteria for diagnosis of diabetes. Reference: Standards of Medical Care in Diabetes 2016, [place] [employer]. Diabetes Care. 2016.39(Suppl 1). LAB BUN 7-21 mg/dL BUN High 46 LAB CRET 0.58-0.96 mg/dL Creatinine High 1.35 LAB NA 136-144 mmol/L Sodium 139 LAB K 3.7-5.1 mmol/L Potassium 4.9 LAB CL 97-105 mmol/L Low Chloride 95 LAB CO2 22-30 mmol/L CO2 High 38 LAB AGAP 9-18 mmol/L Low Anion Gap 6 LAB CA 8.5-10.2 mg/dL Calcium, Total 9.4 LAB GFRAA eGFR- Amer. 46 LAB GFRNAA . eGFR-All Other Races 38 Result Comment: eGFR (Estimated GFR) Units of measure: mL/min/1.73 meters squared eGFR is derived from the reexpressed MDRD Study equation using the following parameters: serum creatinine, age, gender and race. The creatinine assay has been calibrated to be traceable to IDMS. An eGFR <60 mL/min/1.73m2 for >3 months is consistent with chronic kidney disease. Refer to KDOQI guidelines for clinical interpretation. In patients with unstable renal function, e.g. those with acute kidney injury, the eGFR may not accurately reflect actual GFR. Performed By: #### CBC, BMP, MG1 #### [facility] [address] [place] [address] MAGNESIUM Collected: 12/24/2017 Status: F Source: [place] 7:28 AM [facility] REPOSITORY TYPE CODE TESTS RESULT OUT OF REFERENCE UNITS RANGE LAB MG 1.7-2.3 mg/dL Magnesium 2.2 Performed By: #### CBC, BMP, MG1 #### [facility] [address] [place] [address] Observed: 12/24/2017 Status: F Source: [place] RESPIRATORY CULT/STAIN 6:25 AM [facility] REPOSITORY Smear Result - Rare Mixed oral and respiratory mitra Moderate Polymorphonuclear leukocytes Culture Result - Few Normal respiratory mitra present Performed By: #### RCULST #### [facility] [address] [place], [place] [address] PROGRESS Observed: 12/23/2017 Status: COMPLETED Source: [place] 10:42 PM [facility] REPOSITORY HNO ID: [id number] Author: Rosi OsheaRn) ALLYSON Moralez Service: Nursing Author Type: Registered Nurse Type: Progress Notes Filed: 12/23/2017 10:42 PM Note Text: Nursing Progress Note 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 Brown See Documentation Related to: Additional Comments : Notified of HR as low as 41. No new orders at this time. This note was completed by: Rosi Moralez RN NURSING PROG Observed: 12/23/2017 Status: COMPLETED Source: [place] 8:57 PM CLINIC OTHER CAMPUS REPOSITORY HNO ID: [id number] Author: Rosi Mulligan (Rn) ALLYSON Moralez Service: Nursing Author Type: Registered Nurse Type: Nursing Progress Note Filed: 12/23/2017 10:40 PM Note Text: Nursing Progress Note Patient Name: Luz Baca [place] [facility] [id number] Daily Note:2054: Dr. Brown aware of blood sugar of 576. No new orders at this time. 2238: Dr. Brown notified of HR 41. No new orders at this time. This note was completed by: Rosi Moralez RN PROGRESS Observed: 12/23/2017 Status: COMPLETED Source: [place] 8:14 PM CLINIC OTHER CAMPUS REPOSITORY [facility] ID: [id number] Author: Mara Potter (Pharmacist) Service: Pharmacy Author Type: Pharmacist Type: Progress Notes Filed: 12/23/2017 8:15 PM Note Text: PHARMACY VANCOMYCIN DOSING NOTE Patient Name: Luz Baca Admission Date: 12/23/2017 Date of Consult: 12/23/2017 Time of Consult: 8:14 PM Indication: Pneumonia Goal Range: 15-25 mcg/mL RECOMMENDATIONS/PLAN: Pharmacy consulted for vancomycin dosing for Luz Baca, a 77 year old, female who is being treated with vancomycin. 1. Patient is currently ordered Vancomycin 1 g IV q24h. Today is day 1st of therapy. 2. No vancomycin level has been drawn for this dosing regimen. 3. The present dose of vancomycin is the recommended dosage for this patient at this time. Continue therapy as prescribed. 4. The next vancomycin level will be ordered for 12/27 unless clinically indicated sooner. (Pharmacy will order) We will follow patient renal function, vancomycin levels and doses with you during the course of therapy. Additional recommendations will appear in follow up notes. Age: [age] year old Allergies: ALLERGIES Allergen Reactions - Bactrim [Sulfametho* Other: See Comments My throat swells up. - Latex Rash, Itching Itching and welts. No wheezing or shortness of breath. - Penicillins Rash, Itching Tolerated ceftriaxone during 11/2017 admission - Tetracycline Rash, GI Upset Emesis and diarrhea. - Atorvastatin Rash - Codeine Other: See Comments Numbness - Dilaudid [Hydromorp* Mental Status Change - Meperidine - Pentazocine - Pioglitazone Unknown - Propoxyphene Last 3 Encounter Wt Readings: Date: Wt: 12/23/2017 103.7 kg (228 lb 11.2 oz) 12/21/2017 101.7 kg (224 lb 1.6 oz) 12/10/2017 100.1 kg (220 lb 11.2 oz) Last 1 Encounter Ht Readings: Date: Ht: 12/23/2017 172.7 cm (5' 8) CrCl: 47.8 mL/min Temp (24hrs), Av.8 ?C (98.3 ?F), Min:36.6 ?C (97.9 ?F), Max:37.1 ?C (98.8 ?F) - Current Temp: 37.1 ?C (98.8 ?F) Labs BUN (mg/dL) Date Value 12/23/2017 40 (H) 12/15/2017 76 (H) 12/14/2017 75 (H) Creatinine (mg/dL) Date Value 12/23/2017 1.19 (H) 12/15/2017 1.78 (H) 12/14/2017 1.74 (H) WBC (k/uL) Date Value 12/23/2017 13.04 (H) 12/15/2017 16.09 (H) 12/14/2017 13.07 (H) Vancomycin Levels: No results found for: HUGO Potter, Pharmacist NURSING PROG Observed: 12/23/2017 Status: COMPLETED Source: [place] 6:00 PM CLINIC OTHER CAMPUS REPOSITORY O ID: [id number] Author: Geraldo Raya (Rn) ALLYSON Mak Service: Nursing Author Type: Registered Nurse Type: Nursing Progress Note Filed: 12/23/2017 6:32 PM Note Text: Nursing Progress Note Patient Name: Luz Baca Patient [place] [facility] [id number] Daily Note: 1800- Patient arrived to unit at this time in stable condition. Patient is on 2 L O2 via NC. IV ATB infusing on arrival. Patient ambulated from cart into room 319-2. Patient tolerated with mild respiratory distress. Family at bedside. Patient ambulated to with supervision and use of IV pole. NAD noted, tolerated with pursed lip breathing. This note was completed by: Geraldo Mak RN PLAN OF CARE Observed: 12/23/2017 Status: COMPLETED Source: [place] 4:47 PM CLINIC OTHER CAMPUS REPOSITORY HNO ID: [id number] Author: Herbert Marino (Pharmacist) Service: Pharmacy Author Type: Pharmacist Type: Plan of Care Filed: 12/23/2017 4:54 PM Note Text: MEDICATION HISTORY Patient Name:Josephine Baca : 1940 Source of history:Patient: Reliability of source: Appears reliable, clearly identified: Medication name, Medication dose, Medication route, Medication frequency and Timing of last dose and Pharmacy records: [facility] [place] pharmacy Medication Nonadherence Identified: No barriers noted The above information represents the best possible medication history: Yes Additional comments: ? Medications removed: ? Symbicort - recently discontinued by provider, per patient ? Atrovent - recently discontinued by provider, per patient ? Spiriva - recently discontinued by provider, per patient ? Medications adjusted: ? Colchicine - sig; patient takes 1 tab PO every day ? Gabapentin - sig (2 caps PO BID) ? Novolog - dose (patient currently injecting 15 units with each meal) ? Lantus - dose (patient currently injecting 60 units qAM and 40 units qPM) ? Isosorbide - sig (patient reports only taking once daily) ? Pantoprazole - sig (patient reports only taking once daily) ? Simvastatin - sig (patient takes in the morning) ? Medications added: ? Benzonatate ? Allergy list modifications: ? Added my throat swells up to Bactrim allergy ? Added Rash to tetracycline allergy ? Added rash to atorvastatin allergy ? Added numbness to codeine intolerance ? Added mental status change to Dilaudid intolerance Allergies: ALLERGIES Allergen Reactions - Bactrim [Sulfametho* Other: See Comments My throat swells up. - Latex Rash, Itching Itching and welts. No wheezing or shortness of breath. - Penicillins Rash, Itching Tolerated ceftriaxone during 11/2017 admission - Tetracycline Rash, GI Upset Emesis and diarrhea. 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 12/23/2017 at 0900 Yes apixaban (ELIQUIS) 5 mg tab(s) Take 5 mg by mouth twice daily. 12/23/2017 at 0900 Yes furosemide (LASIX) 40 mg tablet Take 60 mg (1.5 tablets) by mouth every morning and 40 mg (1 tablet) every day around noon. 12/23/2017 at 0900 Yes gabapentin (NEURONTIN) 300 mg capsule Take 600 mg by mouth twice daily. 12/23/2017 at 0900 Yes insulin aspart U-100 (NOVOLOG FLEXPEN U-100 INSULIN) 100 unit/mL inpn Inject 15 Units subcutaneously three times daily with meals. 12/23/2017 at 0900 Yes insulin glargine (LANTUS SOLOSTAR U-100 INSULIN) 100 unit/mL (3 mL) inpn Inject 60 Units subcutaneously every morning. 12/23/2017 at 0900 Yes insulin glargine (LANTUS SOLOSTAR U-100 INSULIN) 100 unit/mL (3 mL) inpn Inject 40 Units subcutaneously daily at bedtime. 12/22/2017 at 2200 Yes isosorbide mononitrate ER (IMDUR) 30 mg 24 hr tablet Take 30 mg by mouth once daily. 12/23/2017 at [address] (PROTONIX) 40 mg tablet Take 40 mg by mouth once daily. 12/23/2017 at 0900 Yes predniSONE (DELTASONE) 10 mg tablet Taper: 40mg PO daily x 3 days, 30mg PO daily x 3 days, 20mg PO daily x 3 days, 10mg PO daily x 3 days, then stop. 12/23/2017 at 0900 Yes simvastatin (ZOCOR) 40 mg tablet Take 40 mg by mouth every morning. 12/23/2017 at 0900 Yes benzonatate (TESSALON PERLE) 100 mg capsule Take 100 mg by mouth three times daily as needed. 12/23/2017 at 0900 Yes spironolactone (ALDACTONE) 25 mg tablet Take 1 tablet by mouth once daily. 12/23/2017 at 0900 Yes nystatin (MYCOSTATIN) 100,000 unit/mL suspension Take 2 mL by mouth four times daily for 7 days. SWISH AND SWALLOW 2 ML 4 TIMES PER DAY. 12/23/2017 at 0900 Yes ipratropium-albuterol (DUONEB) 0.5 mg-3 mg(2.5 mg base)/3 mL nebu Inhale 3 mL as instructed every 4 hours as needed. 12/23/2017 at Unknown time Yes guaiFENesin-dextromethorphan (ROBITUSSIN DM) 100-10 mg/5 mL syrup Take 5-10 mL by mouth every 6 hours as needed for Cough. 12/23/2017 at 0900 Yes nitroglycerin sublingual (NITROQUICK) 0.4 mg SL tablet Dissolve 1 tablet under the tongue every 5 minutes as needed. Unknown at Unknown time Yes potassium chloride ER (K-DUR, KLOR-CON) 10 mEq tablet TAKE ONE TABLET BY MOUTH DAILY WITH BREAKFAST 12/23/2017 at 0900 Yes albuterol HFA (VENTOLIN HFA) 90 mcg/actuation inhaler Inhale 2 Puffs as instructed every 4 hours as needed. 12/22/2017 at Unknown time Yes OXYGEN, HOME THERAPY, Inhale 2.5 L/min as instructed as directed. Unknown at Unknown time Yes HERBERT MARINO, PHARMACIST December 23, 2017 4:48 PM HISTORY PHYSICAL Observed: 12/23/2017 Status: COMPLETED Source: [place] 3:59 PM CLINIC OTHER CAMPUS REPOSITORY O ID: [id number] Author: Radha Adams) Thuestad Service: Hospital Medicine Author Type: Physician Type: HANDP Filed: 12/23/2017 8:49 PM Note Text: HOSPITAL MEDICINE HISTORY AND PHYSICAL EXAM PATIENT NAME: Luz Baca SERVICE DATE: 12/23/2017 SERVICE TIME: 3:59 PM Primary Care Physician: Jameson Kamara MD NIGHT COVERAGE Page [phone] for any questions between 5.30p-7.30a ASSESSMENT AND PLAN HCAP (healthcare-associated pneumonia) Feeling not better since patient was discharged in end of the Nov. - most likely have mucus plugs - started with IV Vanco and Aztreonam - sputum culture - duoneb q4hr + prn - Mucinex BID Acute on chronic combined systolic and diastolic CHF (congestive heart failure) - most likely some fluid overload - Pro BNP 2600 - cont with fluid restriction - Cont lasix IV - Last Echo 12/21/2017 LVEF 50% with Grade 3 diastolic dysfunction Acute on chronic respiratory failure with hypoxia - chronic home O2 with 2.5 l/min NC - supplement as needed COPD with acute exacerbation - Given on dose in ER with Solumedrol - cont with treatment as above Atrial fibrillation - On BB - Cont Eliquis - Rate controlled Diabetes mellitus due to underlying condition, uncontrolled, with stage 3 chronic kidney disease, with long-term current use of insulin On amaryl and sitagliptan Will start sliding scale option 1 coverage Follow accuchecks HgbA1c: >15 (Oct 2707/2018) Carotid artery disease H/O of CABGx2 (DEBORAH-LAD, SVG-PDA ) in 2004 On ezetimibe, simvastatin, metoprolol, benazepril Essential hypertension On metoprolol, norvasc, benazepril will titrate GERD (gastroesophageal reflux disease) On nexium - protonix here Hyperlipidemia On ezetimibe and simvastatin LDL 61 Sleep apnea Should wears CPAP at home But not used for years Last sleep study in possible 2008 Obesity Diet/exercise/weightloss discussed with patient SUBJECTIVE CHIEF COMPLAINT: Chest pain and SOB since discharge on Dec 15. HPI: This is a 77 year old female who presents with hx of AFIB, cardiomegaly, PM, CHF, CAD, CKD, COPD, home O2 2.5 l/m, GERD, morbid obesity, pneumonia, who was admitted on Dec 10 to and discharged home. Since than not been feeling much better. Difficult to take deep breath. Has chest pain in the mid chest. With pushing on the chest it gets worse. Not sure of pleurisy. Still SOB and still productive cough with sometime clear and at times benavides/yelloish thick phlegm. No fevers nor chills. Appetite is terrible due to the steroids. PAST MEDICAL HISTORY: PAST MEDICAL HISTORY Diagnosis Date - Arthritis - Atrial fibrillation (HCC) - CAD (coronary artery disease) stents x9, defibrillator, CABG. Seeing Dr. Cardona - Cardiac defibrillator in place - Cardiomegaly - Carotid artery disease (HCC) left - CKD (chronic kidney disease), stage IV (HCC) - COPD (chronic obstructive pulmonary disease) (HCC) Dr. Cruz - Depression - Diabetes ([facility]) - Diabetic neuropathy ([facility]) - GERD (gastroesophageal reflux disease) - Gout - HH (hiatus hernia) - HOCM (hypertrophic obstructive cardiomyopathy) ([facility]) - HTN (hypertension) - Hyperlipidemia - Morbid obesity with BMI of 40.0-44.9, adult ([facility]) - Pacemaker - Pneumonia h/o pneumonia/bronchitis - Renal insufficiency 2003 post op - Sleep apnea 2011 not on CPAP, unable to tolerate mask 02/2017 - SVT (supraventricular tachycardia) ([facility]) NSVT and questionable VT in 2003 post op PAST SURGICAL HISTORY: PAST SURGICAL HISTORY Procedure Laterality Date - PAST SURGICAL HISTORY OF 07/18/2004 Septal myectomy and CABG x2 (DEBORAH-LAD, SVG-PDA). - PAST SURGICAL HISTORY OF left breast nodule removed - PAST SURGICAL HISTORY OF hysterectomy - PAST SURGICAL HISTORY OF perianal abscess drained - PAST SURGICAL HISTORY OF cholecystectomy - PAST SURGICAL HISTORY OF skin lesions removed FAMILY HISTORY: FAMILY HISTORY Problem Relation Age of Onset - Hypertension Mother living at age 93, HTN - Heart Failure Mother NE - Cancer Father age 71, lung cancer SOCIAL HISTORY: Social History Substance Use Topics - Smoking status: Former Smoker Packs/day: 2.50 Years: 43.00 Types: Cigarettes Start date: 1961 Quit date: 07/07/2004 - Smokeless tobacco: Never Used - Alcohol use No 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 No wheezing or shortness of breath. - Penicillins Rash, Itching Tolerated ceftriaxone during 11/2017 admission - Tetracycline GI Upset Emesis and diarrhea. - Atorvastatin Unknown - Bactrim [Sulfametho* Unknown I don't remember. - Codeine Unknown - Dilaudid [Hydromorp* Unknown - Meperidine - Pentazocine - Pioglitazone Unknown - Propoxyphene REVIEW OF SYSTEM: PAIN ASSESSMENT: Positive for chest pain. Negative history of chronic pain, or current treatment for a chronic pain condition. GENERAL: No weight loss, malaise or fevers. HEENT: Negative for frequent or significant headaches, No changes in hearing or vision, no nose bleeds or other nasal problems NECK: Negative for lumps, goiter, pain and significant neck swelling RESPIRATORY: Positive for cough, wheezing and shortness of breath, but no hemoptysis CARDIOVASCULAR: Positive for chest pain, no leg swelling or palpitations. GI: No nausea, vomiting, or diarrhea : No history of dysuria, frequency or incontinence. MUSCULOSKELETAL: Negative for joint pain or swelling, back pain or muscle pain. SKIN: Negative for lesions, rash, and itching. PSYCH: Negative for sleep disturbance, mood disorder and recent psychosocial stressors. HEMATOLOGY/LYMPHOLOGY: Negative for prolonged bleeding, bruising easily or swollen nodes. ENDOCRINE: Negative for cold or heat intolerance, polyuria, polydipsia and goiter. NEURO: No history of headaches, syncope, paralysis, seizures or tremors OBJECTIVE PHYSICAL EXAM: BP 144/66 Pulse 60 Temp (Src) 98.2 (Oral) Resp 20 Ht 5' 8 (1.73m) Wt 224 lb (101.6kg) SpO2 94% BMI 34.07 kg/(m2). GENERAL: alert, no distress, cooperative SKIN: Skin color, texture, turgor normal. No rashes or lesions. HEAD/SINUSES: No significant findings. EYES: PERRLA and EOMI OROPHARYNX: Lips, mucosa, and tongue normal. Teeth and gums normal. Oropharynx normal. NECK: no jugulovenous distention, no carotid bruits, carotid pulse normal contour, supple BACK: Back symmetric, Normal curvature, ROM normal, No CVAT. LUNGS: Lungs with reduced air exchange . CARDIAC: normal S1 and S2; no rubs, murmurs, or gallops ABDOMEN: Abdomen soft, non-tender. BS normal. No masses or organomegaly. EXTREMITIES: Extremities normal. No deformities, edema, clubbing or skin discoloration., No ulcers NEURO: Reflexes normal and symmetric. Sensation grossly intact., Cranial nerves II-XII intact PULSES: 2+ radial, 2+ carotid DATA: Diagnostic tests reviewed for today's visit: Most recent labs Most recent imaging Most recent EKG CBC: WBC 13.04 12/23/2017 Hemoglobin 12.7 12/23/2017 Hematocrit 41.0 12/23/2017 Platelet Count 130 12/23/2017 CMP: Sodium 135 12/23/2017 Potassium 5.3 12/23/2017 BUN 40 12/23/2017 Creatinine 1.19 12/23/2017 Glucose 556 12/23/2017 Chloride 92 12/23/2017 CO2 Content, Venous 33 12/23/2017 VTE Prophylaxis: Patient is already anti-coagulated. Disposition: Home with [facility] vs Extended Care Facility Plan of care discussed with: Patient, Family and RN SIGNATURE: Radha Edmonds MD DATE: December 23, 2017 TIME: 3:59 PM CASE MGT INIT Observed: 12/23/2017 Status: COMPLETED Source: [facility] 3:14 PM CLINIC OTHER CAMPUS REPOSITORY HNO ID: [id number] Author: Zenobia (Rn) ALLYSON Soto Service: (none) Author Type: Registered Nurse Type: Care Mgt Initial Assessment Filed: 12/23/2017 3:22 PM Note Text: CARE MANAGEMENT: ASSESSMENT AND DISCHARGE PLAN SERVICE DATE: 12/23/2017 SERVICE TIME: 3:14 PM PRIMARY CARE PHYSICIAN: Jameson Kamara MD (confirmed) ADMISSION STATUS: Emergency Needs Prior to Discharge: To Be Determined;Home Care Order;OT/PT Evaluation MEDICAL: Patient/Home And School Visitor Stated Goals: To have reduction in symptoms Health Insurance: MEDICARE A AND B confirmed Health Issues Impacting Discharge Plan: COPD, CHF,DM Last Admission Date: Previous admit date: 12/10/2017 Is this Within the Past 30 days? Yes Is This a Planned Readmission? No: Recurrent symptoms of underlying disease Followed Up with Appointment Prior to Admission: Appointment completed Where Did the Patient Come From? Home Intervention Taken to Avoid Future Readmission? [facility] Health Literacy: 1. How often do you need to have someone help you when you read instructions, pamphlets, or other written material from your doctor or pharmacy? Always - 5 2. How confident are you filling out medical forms by yourself? Not at all - 5 If Patient scores > 3 on either question, the following interventions were put into place: Use of plain language and active listening with Patient and family FUNCTIONAL AND COGNITIVE/BEHAVIORAL PRIOR TO ADMISSION: Baseline Mental Status: Alert AND Oriented, Person, Place , Time and Situation Functional Status: Needs Assistance Does Patient Currently Receive Any Community Services or Home Care? Home Health Care Agency: [facility]; ; Active. Equipment Prior to Admission: Bedside Commode Oxygen 2.5 liters per minute Rollator Scooter Walker Has the Patient Been in a Snf Facility in the Past 30 days? No SOCIAL: Living Arrangement: Home Lives With: Daughter Financial Resources: Retired Primary Contact: Extended Emergency Contact Information Primary Emergency Contact: Octavia Soliman Address: [address] [place] [address] [address] [place] [address] Relation: Daughter Supportive: Yes Other Important Patient Contacts: None Caregiver Assessment: Caregiver is ready, willing and able to meet the patient's needs as recommended by the inter-professional team? TBD Patient's transition needs and plan for meeting these needs: continue with HHC Does the patient have an acute stroke diagnosis, or has the patient had a stroke during this admission? No Medication Adherence: I am convinced of the importance of my prescription medication: Agree completely - 0 I worry that my prescription medication will do more harm than good to me Disagree completely - 0 I feel financially burdened by my [id number]-ng-ouxoce expenses for my prescription medication: Agree completely - 2 Patient is categorized as medium risk score 2-7: The following interventions are being put into place - Consult social work and Consult pharmacy Are you interested in bedside delivery of your medications? No,uses [email or web address] in [place] Food Concerns: In the Last Month, Have You had Trouble Getting Food? No trouble getting food During the Last Month, Have You Worried Whether Your Food Would Run Out Before You Had Enough Money to Buy More? No Is the Patient Psychosocially Complex? No ASSESSMENT AND PLAN: Medical Needs: 2 or more chronic diseases Psychosocial Needs: None FREEDOM OF CHOICE EXPLAINED: Yes HHC/SNF POTENTIAL TRANSITION PLANS Home Retirement OT/PT CM in to speak with patient and dtr Octavia at bedside, introduced self and role. Pt is a 77-year-old female presenting today with worsening trouble breathing, pt was just in the hospital for COPD and CHF. Pt is AANDOx3-4, resides with dtr (who is caregiver) in a 1SH. 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 Per pt, plan is to return home with assist from dtr and continue [facility]. CM instructed pt that a CM will remain available for any d/c needs. Pt had no further questions/concerns voiced at this time. SIGNATURE: Zenobia Soto RN PATIENT NAME: Luz Baca DATE: December 23, 2017 TIME: 3:14 PM PAGER/CONTACT #: [phone] XR CHEST 1V FRONTAL Observed: 12/23/2017 Status: F Source: [facility] 1:48 PM CLINIC OTHER CAMPUS REPOSITORY * * *Final Report* * * DATE OF EXAM: Dec 23 2017 1:48PM MDX [id number] - XR CHEST 1V FRONTAL PORT / PROCEDURE REASON: Dyspnea * * * * Physician Interpretation * * * * EXAMINATION: CHEST RADIOGRAPH (PORTABLE SINGLE VIEW AP) Exam Date/Time: 12/23/2017 1:48 PM Indication: Dyspnea MQ: XCP_4 Comparison: 12/20/2017 RESULT: See impression. IMPRESSION: Lines, tubes, and devices: A single lead cardiac pacing device overlies the left hemithorax. Additional EKG leads also overlie the thorax. Lungs and pleura: Opacity in the left lung base is suggestive of a small left pleural effusion, atelectasis and/or consolidation. Mild right basilar atelectasis. No pneumothorax. There is prominence of the pulmonary vasculature is suggestive of pulmonary congestion/edema. Cardiomediastinal silhouette: Enlarged cardiac silhouette. Sternotomy wires and mediastinal clips. Other: No acute osseous abnormality is evident. Service Delivery Supervisor: PSCB Transcribe Date/Time: Dec 23 2017 1:50P Dictated by : SPEEDY CAM MD This examination was interpreted and the report reviewed and electronically signed by: SPEEDY CAM MD on Dec 23 2017 1:51PM EST [id number] Observed: 12/23/2017 Status: F Source: [facility] BLOOD [facility]ULTURE 1:45 PM [facility] OTHER CAMPUS REPOSITORY Sp. Request/Comment: - The blood culture bottles are underfilled. Adding volume lower or higher than the 8 to 10 mL per bottle, which is the manufacturers recommended volume, may adversely affect the re covery and/or detection of organisms. 7.5ML Culture Result - No growth 5 days Performed By: #### BLCUL #### [facility] [address], [place] [address] CBC AND DIFFERENTIAL Collected: 12/23/2017 Status: F Source: [facility] 1:40 PM [facility] OTHER CAMPUS REPOSITORY TYPE CODE TESTS RESULT OUT OF REFERENCE UNITS RANGE LAB WBC 3.70-11.00 k/uL WBC High 13.04 LAB RBC 3.90-5.20 m/uL RBC 4.28 LAB HGB 11.5-15.5 g/dL Hemoglobin 12.7 LAB HCT 36.0-46.0 % Hematocrit 41.0 LAB MCV 80.0-100.0 fL MCV 95.8 LAB MCH 26.0-34.0 pG MCH 29.7 LAB MCHC 30.5-36.0 g/dL MCHC 31.0 LAB RDWCV 11.5-15.0 % RDW-CV High 15.7 LAB PLTCT 150-400 k/uL Low Platelet Count 130 LAB MPV 9.0-12.7 fL MPV 10.5 LAB ANEUT % Neut% 93.3 LAB AANEUT 1.45-7.50 k/uL Abs Neut High 12.17 LAB ALYMP % Lymph% 3.2 LAB AALYMP 1.00-4.00 k/uL Low Abs Lymph 0.42 LAB AMONO % Stoddard% 3.2 LAB AAMONO <0.87 k/uL Abs Stoddard 0.42 LAB AEOS % Eosin% 0.1 LAB AAEOS <0.46 k/uL Abs Eosin <0.03 LAB ABASO % Baso% 0.2 LAB AABASO <0.11 k/uL Abs Baso <0.03 Performed By: #### CBCDIF, PT, PTT, CMP, MG1 #### [facility] [address] [facility] [phone] PROTIME Collected: 12/23/2017 Status: F Source: [facility] 1:40 PM CLINIC OTHER CAMPUS REPOSITORY TYPE CODE TESTS RESULT OUT OF RANGE REFERENCE UNITS LAB PSEC 9.7-13.0 sec PT Sec 10.3 LAB INR 0.9-1.3 PT INR 1.0 Result Comment: Vitamin K Antagonist (VKA) Therapeutic Range: INR 2 to 3 (Target INR of 2.5) Note: For patients treated with VKA drugs, such as warfarin, the [place] [employer] 2012 Guideline recommends a therapeutic INR range of 2 to 3 (target INR of 2.5). This recommendation includes high-risk patients with antiphospholipid syndrome with previous arterial or venous thromboembolism, current-generation mechanical or bioprosthetic aortic heart valve replacement. Note: Patients with mechanical aortic valve replacement and additional risk factors for thromboembolic events (atrial fibrillation, previous thromboembolism, LV dysfunction, hypercoagulable conditions) or an older generation mechanical AVR (i.e., ball in-Cage) or any mechanical MVR should have a INR therapeutic range of 2.5 to 3.5 (target INR of 3). Stella CASILLAS, et al. Chest 2012, 141:7S-47S Jose R NGUYEN et al. [facility] 2017, 70: 252-289 Performed By: #### CBCDIF, PT, PTT, CMP, MG1 #### [facility] [address] [place] [address] APTT Collected: 12/23/2017 Status: F Source: [facility] 1:40 PM [facility] REPOSITORY TYPE CODE TESTS RESULT OUT OF RANGE REFERENCE UNITS LAB APTT 23.0-32.4 sec APTT 26.0 Result Comment: Unfractionated Heparin Therapeutic Ranges: Standard Heparin Nomogram: 53 to 78 seconds (anti-Xa level of 0.3 to 0.7 U/ml) Low Dose/ACS Nomogram: 49 to 67 seconds (anti-Xa level of 0.2 to 0.5 U/ml) Stroke Treatment Nomogram: 49 to 67 seconds (anti-Xa level of 0.2 to 0.5 U/ml) Note: The APTT therapeutic range has been determined for the current lot of laboratory APTT reagent in use throughout the [facility]. Performed By: #### CBCDIF, PT, PTT, CMP, MG1 #### [facility] [address] [place] [address] COMP METABOLIC PANEL Collected: 12/23/2017 Status: F Source: [place] 1:40 [facility] REPOSITORY TYPE CODE TESTS RESULT OUT OF REFERENCE UNITS RANGE LAB TP 6.3-8.0 g/dL Protein, Total 6.6 LAB ALB 3.9-4.9 g/dL Low Albumin 3.3 LAB CA 8.5-10.2 mg/dL Calcium, Total 9.0 LAB TBIL 0.2-1.3 mg/dL Bilirubin, Total 0.4 LAB ALKP 32-117 U/L Alkaline High Phosphatase 140 LAB AST 13-35 U/L AST 22 Result Comment: Results may be falsely increased due to interference by hemolysis. Suggest reorder as clinically indicated. LAB GLU 74-99 mg/dL High Glucose 556 Result Comment: The [place] [employer] Association (ADA) provides guidance for cutoff values for fasting glucose and random glucose. The ADA defines fasting as no caloric intake for at least 8 hours. Fas ting plasma glucose results between 100 to 125 mg/dL indicate increased risk for diabetes (prediabetes). Fasting plasma glucose results greater than or equal to 126 mg/dL meet the criteria for diagnosis of diabetes. In the absence of unequivocal hyperglycemia, results should be confirmed by repeat testing. In a patient with classic symptoms of hyperglycemia or hyperglycemic crisis, random plasma glucose results greater than or equal to 200 mg/dL meet the criteria for diagnosis of diabetes. Reference: Standards of Medical Care in Diabetes 2016, [place] [employer] Association. Diabetes Care. 2016.39(Suppl 1). Called to and read back by: [facility] 12/23/2017 [address] [facility] BUN 7-21 mg/dL BUN High 40 LAB CRET 0.58-0.96 mg/dL Creatinine High 1.19 LAB NA 136-144 mmol/L Low Sodium 135 LAB K 3.7-5.1 mmol/L Potassium High 5.3 LAB CL 97-105 mmol/L Low Chloride 92 LAB CO2 22-30 mmol/L CO2 High 33 LAB AGAP 9-18 mmol/L Anion Gap 10 LAB ALT 7-38 U/L ALT 23 LAB GFRAA eGFR- Amer. 53 LAB GFRNAA . eGFR-All Other Races 44 Result Comment: eGFR (Estimated GFR) Units of measure: mL/min/1.73 meters squared eGFR is derived from the reexpressed MDRD Study equation using the following parameters: serum creatinine, age, gender and race. The creatinine assay has been calibrated to be traceable to IDMS. An eGFR <60 mL/min/1.73m2 for >3 months is consistent with chronic kidney disease. Refer to KDOQI guidelines for clinical interpretation. In patients with unstable renal function, e.g. those with acute kidney injury, the eGFR may not accurately reflect actual GFR. Performed By: #### CBCDIF, PT, PTT, CMP, MG1 #### [facility] [address] [place] [address] MAGNESIUM Collected: 12/23/2017 Status: F Source: [facility] 1:40 PM [facility] OTHER CAMPUS REPOSITORY TYPE CODE TESTS RESULT OUT OF REFERENCE UNITS RANGE LAB MG 1.7-2.3 mg/dL Magnesium 2.0 Performed By: #### CBCDIF, PT, PTT, CMP, MG1 #### [facility] [address] [place] [address] TROPONIN T Collected: 12/23/2017 Status: F Source: [place] 1:40 PM [facility] OTHER CAMPUS REPOSITORY TYPE CODE TESTS RESULT OUT OF REFERENCE UNITS RANGE LAB TROPT 0.000-0.029 ng/mL High Troponin T 0.052 Result Comment: Called to and read back by: [facility] 12/23/2017 Demetris Presley Performed By: #### MARIN #### [facility] [address] [place] [address] NT PRO BNP Collected: 12/23/2017 Status: F Source: [place] 1:40 PM [facility] OTHER CAMPUS REPOSITORY TYPE CODE TESTS RESULT OUT OF REFERENCE UNITS RANGE LAB PBNP <450 pg/mL High PRO B Natr 2578 Peptide Performed By: #### NTBNP, CKCKMB #### [address] [phone] CK, TOTAL AND CKMB Collected: 12/23/2017 Status: F Source: [place] 1:40 PM [facility] OTHER CAMPUS REPOSITORY TYPE CODE TESTS RESULT OUT OF RANGE REFERENCE UNITS LAB CK 42-196 U/L CK 73 Result Comment: Results may be falsely increased due to interference by hemolysis. Suggest reorder as clinically indicated. LAB MB <4.3 ng/mL 7.3 High MB LAB CKMBRI 0.0-4.0 % CK MB % not reported CK MB % with CK <100 U/L. Performed By: #### NTBNP, CKCKMB #### [address] [phone] Observed: 12/23/2017 Status: F Source: [facility] 1:40 PM [facility] OTHER CAMPUS REPOSITORY Sp. Request/Comment: - The blood culture bottles are underfilled. Adding volume lower or higher than the 8 to 10 mL per bottle, which is the manufacturers recommended volume, may adversely affect the re covery and/or detection of organisms. 11.6ML Culture Result - No growth 5 days Performed By: #### BLCUL #### [facility] [address] [place], [place] [address] ED PROV NOTE Observed: 12/23/2017 Status: COMPLETED Source: [facility] 1:22 PM CLINIC OTHER CAMPUS REPOSITORY O ID: [id number] Author: Leandro Kauffman MD Service: (none) Author Type: Physician Type: ED Provider Notes Filed: 12/23/2017 2:56 PM Note Text: ED Provider Note Patient Name: Luz Baca SERVICE DATE: 12/23/17 History Patient presents with: Shortness of Breath HPI Ms. Baca is a pleasant 77-year-old female presenting today with worsening trouble breathing as she finishes the prednisone taper, on 20 mg today and plan for that tomorrow, having just been in the hospital for COPD and CHF. She had her Lasix dose increased recently as well, and followed up with cardiology 2 days ago and pulmonology 3 days ago. She has had worsening trouble breathing and continuing cough, increased in cough frequency and production from her baseline. She is at baseline on 2 L nasal cannula oxygen. She has some chest discomfort, particularly with breathing, and takes Eliquis for a fib h/o pacer/defib, EF ~50%, gr 3 diastolic dysfunction, severe pulm HTN, echo last week, and tells me she had a CT during her last admission, which ended about a week ago. She denies worsening swelling of her lower extremities. PAST MEDICAL HISTORY Diagnosis Date - Arthritis - Atrial fibrillation ([facility]) - CAD (coronary artery disease) stents x9, defibrillator, CABG. Seeing Dr. Cardona - Cardiac defibrillator in place - Cardiomegaly - Carotid artery disease ([facility]) left - CKD (chronic kidney disease), stage IV ([facility]) - COPD (chronic obstructive pulmonary disease) ([facility]) Dr. Cruz - Depression - Diabetes ([facility]) - Diabetic neuropathy ([facility]) - GERD (gastroesophageal reflux disease) - Gout - HH (hiatus hernia) - HOCM (hypertrophic obstructive cardiomyopathy) ([facility]) - HTN (hypertension) - Hyperlipidemia - Morbid obesity with BMI of 40.0-44.9, adult ([facility]) - Pacemaker - Pneumonia h/o pneumonia/bronchitis - Renal insufficiency 2003 post op - Sleep apnea 2011 not on CPAP, unable to tolerate mask 02/2017 - SVT (supraventricular tachycardia) ([facility]) NSVT and questionable VT in 2003 post op PAST SURGICAL HISTORY Procedure Laterality Date - PAST SURGICAL HISTORY OF 07/18/2004 Septal myectomy and CABG x2 (DEBORAH-LAD, SVG-PDA). - PAST SURGICAL HISTORY OF left breast nodule removed - PAST SURGICAL HISTORY OF hysterectomy - PAST SURGICAL HISTORY OF perianal abscess drained - PAST SURGICAL HISTORY OF cholecystectomy - PAST SURGICAL HISTORY OF skin lesions removed FAMILY HISTORY Problem Relation Age of Onset - Hypertension Mother living at age 93, HTN - Heart Failure Mother NE - Cancer Father age 71, lung cancer Social History Social History Main Topics - Smoking status: Former Smoker Packs/day: 2.50 Years: 43.00 Types: Cigarettes Start date: 1961 Quit date: 07/07/2004 - Smokeless tobacco: Never Used - Alcohol use No - Drug use: No - Sexual activity: Not Asked ALLERGIES Allergen Reactions - Latex Rash, Itching Itching and welts. No wheezing or shortness of breath. - Penicillins Rash, Itching Tolerated ceftriaxone during 11/2017 admission - Tetracycline GI Upset Emesis and diarrhea. - Atorvastatin Unknown - Bactrim [Sulfametho* Unknown I don't remember. - Codeine Unknown - Dilaudid [Hydromorp* Unknown - Meperidine - Pentazocine - Pioglitazone Unknown - Propoxyphene Review of Systems Constitutional: Positive for fatigue. Negative for chills and fever. HENT: Positive for congestion. Negative for ear pain, rhinorrhea and sore throat. Respiratory: Positive for cough, shortness of breath and wheezing. Cardiovascular: Positive for chest pain. Negative for leg swelling. Gastrointestinal: Negative for abdominal pain, diarrhea, nausea and vomiting. Genitourinary: Negative for dysuria, flank pain, frequency and hematuria. Musculoskeletal: Negative for back pain. Skin: Negative for rash. Neurological: Positive for weakness. Negative for speech difficulty, light-headedness, numbness and headaches. Psychiatric/Behavioral: Negative for hallucinations and suicidal ideas. Physical Exam BP 144/66 Pulse 60 Temp (Src) 98.2 (Oral) Resp 20 Ht 5' 8 (1.73m) Wt 224 lb (101.6kg) SpO2 94% BMI 34.07 kg/(m2). Physical Exam Constitutional: She is oriented to person, place, and time. Chronically ill, no acute distress, wheezing throughout, rales at the bases bilaterally, not impressive leg edema relative to her condition HENT: Head: Normocephalic and atraumatic. Mouth/Throat: No oropharyngeal exudate. Dry mucous membranes Eyes: Pupils are equal, round, and reactive to light. Neck: Normal range of motion. Neck supple. No tracheal deviation present. Cardiovascular: Normal rate and intact distal pulses. Exam reveals no gallop and no friction rub. No murmur heard. Pulmonary/Chest: Effort normal. No respiratory distress. She has wheezes. She has rales. Abdominal: Soft. Bowel sounds are normal. She exhibits no distension. There is no tenderness. There is no rebound and no guarding. Musculoskeletal: Normal range of motion. She exhibits no edema. Neurological: She is alert and oriented to person, place, and time. No cranial nerve deficit. She exhibits normal muscle tone. Skin: Skin is warm and dry. No erythema. There is pallor. Psychiatric: She has a normal mood and affect. Her behavior is normal. Judgment and thought content normal. Nursing note and vitals reviewed. Diagnostic Testing ED Labs Ordered and Reviewed CBC + DIFF - Abnormal; Notable for the following: Result Value Ref Range WBC 13.04 (*) 3.70 - 11.00 k/uL RDW-CV 15.7 (*) 11.5 - 15.0 % Platelet Count 130 (*) 150 - 400 k/uL Abs Neut (ANC) 12.17 (*) 1.45 - 7.50 k/uL Abs Lymph 0.42 (*) 1.00 - 4.00 k/uL All other components within normal limits COMP METABOLIC PANEL - Abnormal; Notable for the following: Albumin 3.3 (*) 3.9 - 4.9 g/dL Alkaline Phosphatase 140 (*) 32 - 117 U/L Glucose 556 (*) 74 - 99 mg/dL BUN 40 (*) 7 - 21 mg/dL Creatinine 1.19 (*) 0.58 - 0.96 mg/dL Sodium 135 (*) 136 - 144 mmol/L Potassium 5.3 (*) 3.7 - 5.1 mmol/L Chloride 92 (*) 97 - 105 mmol/L CO2 33 (*) 22 - 30 mmol/L All other components within normal limits NT PRO BNP - Abnormal; Notable for the following: NT Pro BNP 2578 (*) <450 pg/mL All other components within normal limits CK TOTAL AND CK-MB - Abnormal; Notable for the following: MB 7.3 (*) <4.3 ng/mL All other components within normal limits TROPONIN T - Abnormal; Notable for the following: Troponin T 0.052 (*) 0.000 - 0.029 ng/mL All other components within normal limits CRITICAL CARE PROFILE VENOUS - Abnormal; Notable for the following: Lactate 2.4 (*) 0.5 - 2.2 mmol/L Oxyhemoglobin, Venous 43.2 (*) 60.0 - 85.0 % Bicarbonate, Venous 34.7 (*) 22.0 - 26.0 mmol/L pCO2, Venous 65.2 (*) 39.0 - 51.0 mmHg All other components within normal limits MAGNESIUM BLD PROTHROMBIN TIME/PT ACTIVATED PTT BLOOD CULTURE DRAW BLOOD CULTURE DRAW Procedures Medical Decision Making / ED Course ED Course Course: Vital signs were reviewed. Triage records were reviewed. Medical records were reviewed. Nursing notes were reviewed and incorporated. The following medications were administered: duoneb, albuterol, solumedrol, vancomycin, aztreonam Patient was place on oxygen. Patient placed on monitor ECG reviewed and interpreted as V paced Labs reviewed and interpreted as below. Radiographs were reviewed as below. The case was discussed with the admitting physician. Medical Decision Making: Differential diagnosis: COPD exacerbation, ongoing, pneumonia, electrolyte disarray, anemia, ACS less likely, CHF much less likely with clinical appearance and profound right heart failure on recent echocardiogram, much less likely PE based on symptoms and already on direct oral anticoagulant, other causes of similar symptoms. Assessment and plan: Ms. Baca is a pleasant 77-year-old female who appears adequately diuresis and still is having a lot of dyspnea as she weans from prednisone. We will treat with steroids and antibiotics and likely admit her. CXR LLL ? Infiltrate, WBC down to 13, diastolic bp low but improved. Dr. Edmonds will admit. Minimal CO2 retention no need for bipap now. LA 2.4 not clinically c/w acute sepsis, 500 cc bolus for low diastolic. The attending who evaluated and managed this patient was Leanrdo Kauffman . Plan: The patient was admitted to Regular nursing floor. Case discussed with admitting physician, Dr. Edmonds. Consent: A procedure or transfusion was performed - No Leandro Kauffman MD Encounter Diagnosis ICD-10-CM 1. COPD exacerbation (HCC) J44.1 2. Pulmonary infiltrate in left lung on chest x-ray R91.8 Plan The Patient was ADMITTED TO: Regular nursing floor. Condition at time of disposition: improved and stable SIGNATURE: MD Leandro Michelle MD 12/23/17 1456 ED NOTE Observed: 12/23/2017 Status: COMPLETED Source: [place] 1:02 PM [facility] OTHER [place] REPOSITORY HNO ID: [id number] Author: Anna (Rn) ALLYSON Valencia Service: (none) Author Type: Registered Nurse Type: ED Notes Filed: 12/23/2017 1:03 PM Note Text: Patient with increased shortness of breath. Decreased pulse ox. Patient on 2 liters oxygen. HOSP Observed: 12/23/2017 Status: COMPLETED Source: [place] 12:00 AM [facility] REPOSITORY Patient:Luz Baca MRN: <[id number]> Height:5' 8(1.727 m) Weight:232 lb 9.4 oz (105.5 kg) Outpatient Medications as of 12/31/17: gabapentin (NEURONTIN) 300 mg capsule potassium chloride ER (K-DUR, KLOR-CON) 10 mEq tablet colchicine (COLCRYS) 0.6 mg tablet apixaban (ELIQUIS) 5 mg tab(s) furosemide (LASIX) 40 mg tablet insulin aspart U-100 (NOVOLOG FLEXPEN U-100 INSULIN) 100 unit/mL inpn insulin glargine (LANTUS SOLOSTAR U-100 INSULIN) 100 unit/mL (3 mL) inpn insulin glargine (LANTUS SOLOSTAR U-100 INSULIN) 100 unit/mL (3 mL) inpn isosorbide mononitrate ER (IMDUR) 30 mg [address] (PROTONIX) 40 mg tablet simvastatin (ZOCOR) 40 mg tablet benzonatate (TESSALON PERLE) 100 mg capsule spironolactone (ALDACTONE) 25 mg tablet ipratropium-albuterol (DUONEB) 0.5 mg-3 mg(2.5 mg base)/3 mL nebu guaiFENesin-dextromethorphan (ROBITUSSIN DM) 100-10 mg/5 mL syrup albuterol (PROVENTIL) 5 mg/mL nebu nitroglycerin sublingual (NITROQUICK) 0.4 mg SL tablet gabapentin (NEURONTIN) 300 mg capsule albuterol HFA (VENTOLIN HFA) 90 mcg/actuation inhaler OXYGEN, HOME THERAPY, Admission/Clinic Administered Medications as of 12/31/17: nystatin 5 mL oral liquid (MYCOSTATIN) furosemide 40 mg tab(s) (LASIX) meropenem 1 g in D5W 100 mL MB+ (MERREM) predniSONE 20 mg tab(s) (DELTASONE) dextrose 40 % 15 g glucagon 1 mg injection (GLUCAGEN) dextrose 50% in water 25 mL syringe simvastatin 40 mg tab(s) (ZOCOR) gabapentin 600 mg cap(s) (NEURONTIN) ipratropium-albuterol 3 mL nebulizer solution (DUONEB) colchicine 0.6 mg tab(s) insulin lispro 10 Units injection (rapid acting) (HumaLOG) insulin glargine 45 Units injection (long acting) (LANTUS) insulin glargine 30 Units injection (long acting) (LANTUS) guaiFENesin-dextromethorphan 100-10 mg/5 mL 5-10 mL oral liquid (ROBITUSSIN DM) potassium chloride ER 10 mEq tab(s) (K-DUR, KLOR-CON) spironolactone 25 mg tab(s) (ALDACTONE) pantoprazole DR 40 mg tab(s) (PROTONIX) isosorbide mononitrate ER 30 mg tab(s) (IMDUR) nitroglycerin sublingual 0.4 mg tab(s) (NITROQUICK) 0.9% NaCl 3-5 mL benzonatate 100 mg cap(s) (TESSALON PERLE) insulin lispro injection (rapid acting) (HumaLOG) insulin lispro injection (rapid acting) (HumaLOG) Problem List: HOCM (hypertrophic obstructive cardiomyopathy) ([facility]) [I42.1] SVT (supraventricular tachycardia) ([facility]) [I47.1] Carotid artery disease (HCC) [I77.9] CAD (coronary artery disease) [I25.10] Essential hypertension [I10] Hyperlipidemia [E78.5] COPD (chronic obstructive pulmonary disease) ([facility]) [J44.9] Sleep apnea [G47.30] HH (hiatus hernia) [K44.9] GERD (gastroesophageal reflux disease) [K21.9] Renal insufficiency [N28.9] Arthritis [M19.90] Numbness and tingling of right leg [R20.0, R20.2] Depression [F32.9] Diabetes (HCC) [E11.9] Atrial fibrillation (HCC) [I48.91] Diabetes mellitus due to underlying condition, uncontrolled, with stage 3 chronic kidney disease, with long-term current use of insulin (HCC) [E08.65, E08.22, N18.3, Z79.4] SUMMARY [V999.95] Dyspnea [R06.00] Heart failure, systolic, acute ([facility]) [I50.21] Obesity [E66.9] Gout [M10.9] CKD (chronic kidney disease) stage 3, GFR 30-59 ml/min [N18.3] Pacemaker [Z95.0] CKD (chronic kidney disease), stage IV (HCC) [N18.4] Acute exacerbation of CHF (congestive heart failure) ([facility]) [I50.9] Acute on chronic combined systolic and diastolic CHF (congestive heart failure) ([facility]) [I50.43] Elevated troponin [R74.8] COPD with acute exacerbation (HCC) [J44.1] Acute on chronic respiratory failure with hypoxia ([facility]) [J96.21] HCAP (healthcare-associated pneumonia) [J18.9] Allergies: Bactrim [Sulfamethoxazole-Trimethoprim] Latex Penicillins Tetracycline Atorvastatin Codeine Dilaudid [Hydromorphone (Bulk)] Meperidine Pentazocine Pioglitazone Propoxyphene Date Verified: 12/31/17 Lab Values Lab Value Units Date High Low POTA* 5.1 mmol/L 12/31/2017 5.1 3.7 STAR* 40.5 % 12/31/2017 46.0 36.0 Progress Notes ([facility]): Marisela Forman 12/24/2017 10:00 AM Signed Patient has been identified by name and date of : Yes Pending Prescriptions Disp Refills GABAPENTIN 300 MG CAPSULE Sig: Take 2 capsules by mouth twice daily. JF: No POTASSIUM CHLORIDE ER 10 MEQ TABLET,EXTENDED RELEASE(PART/CRYST) 30 tablet 5 JF: No RX INSTRUCTIONS: Patient aware RX will be sent to pharmacy. No need to notify patient. Marisela Brink Psr Faith Drummond Ma 12/24/2017 3:24 PM Signed Patient has been identified by name and date of : Yes Pending Prescriptions Disp Refills GABAPENTIN 300 MG CAPSULE Sig: Take 2 capsules by mouth twice daily. JF: No POTASSIUM CHLORIDE ER 10 MEQ TABLET,EXTENDED RELEASE(PART/CRYST) 30 tablet 5 JF: No RX INSTRUCTIONS: Patient aware RX will be sent to pharmacy. No need to notify patient. Faith Drummond Ma LAST OV: 12/10/2017 LAST REFILL: 04/2017 120 TABLETS 1 PATIENT IS CURRENT IN HOSPITAL Jameson Kamara MD 12/24/2017 3:53 PM Signed [facility] website checked and validated. All prescriptions have been APPROPRIATELY filled. No suspicious activity was identified.- 12/24/2017 by Jameson Kamara MD Progress Notes (): Anna Valencia, RN, RN 12/23/2017 1:03 PM Signed Patient with increased shortness of breath. Decreased pulse ox. Patient on 2 liters oxygen. Leandro Kauffman MD, MD 12/23/2017 2:56 PM Signed ED Provider Note Patient Name: Luz Baca SERVICE DATE: 12/23/17 History Patient presents with: Shortness of Breath HPI Ms. Baca is a pleasant 77-year-old female presenting today with worsening trouble breathing as she finishes the prednisone taper, on 20 mg today and plan for that tomorrow, having just been in the hospital for COPD and CHF. She had her Lasix dose increased recently as well, and followed up with cardiology 2 days ago and pulmonology 3 days ago. She has had worsening trouble breathing and continuing cough, increased in cough frequency and production from her baseline. She is at baseline on 2 L nasal cannula oxygen. She has some chest discomfort, particularly with breathing, and takes Eliquis for a fib h/o pacer/defib, EF ~50%, gr 3 diastolic dysfunction, severe pulm HTN, echo last week, and tells me she had a CT during her last admission, which ended about a week ago. She denies worsening swelling of her lower extremities. PAST MEDICAL HISTORY Diagnosis Date - Arthritis - Atrial fibrillation (HCC) - CAD (coronary artery disease) stents x9, defibrillator, CABG. Seeing Dr. Cardona - Cardiac defibrillator in place - Cardiomegaly - Carotid artery disease (HCC) left - CKD (chronic kidney disease), stage IV (HCC) - COPD (chronic obstructive pulmonary disease) ([facility]) Dr. Cruz - Depression - Diabetes (HCC) - Diabetic neuropathy (HCC) - GERD (gastroesophageal reflux disease) - Gout - HH (hiatus hernia) - HOCM (hypertrophic obstructive cardiomyopathy) ([facility]) - HTN (hypertension) - Hyperlipidemia - Morbid obesity with BMI of 40.0-44.9, adult ([facility]) - Pacemaker - Pneumonia h/o pneumonia/bronchitis - Renal insufficiency 2003 post op - Sleep apnea 2011 not on CPAP, unable to tolerate mask 02/2017 - SVT (supraventricular tachycardia) ([facility]) NSVT and questionable VT in 2003 post op PAST SURGICAL HISTORY Procedure Laterality Date - PAST SURGICAL HISTORY OF 07/18/2004 Septal myectomy and CABG x2 (DEBORAH-LAD, SVG-PDA). - PAST SURGICAL HISTORY OF left breast nodule removed - PAST SURGICAL HISTORY OF hysterectomy - PAST SURGICAL HISTORY OF perianal abscess drained - PAST SURGICAL HISTORY OF cholecystectomy - PAST SURGICAL HISTORY OF skin lesions removed FAMILY HISTORY Problem Relation Age of Onset - Hypertension Mother living at age 93, HTN - Heart Failure Mother [place] - Cancer Father age 71, lung cancer Social History Social History Main Topics - Smoking status: Former Smoker Packs/day: 2.50 Years: 43.00 Types: Cigarettes Start date: 1961 Quit date: 07/07/2004 - Smokeless tobacco: Never Used - Alcohol use No - Drug use: No - Sexual activity: Not Asked ALLERGIES Allergen Reactions - Latex Rash, Itching Itching and welts. No wheezing or shortness of breath. - Penicillins Rash, Itching Tolerated ceftriaxone during 11/2017 admission - Tetracycline GI Upset Emesis and diarrhea. - Atorvastatin Unknown - Bactrim [Sulfametho* Unknown I don't remember. - Codeine Unknown - Dilaudid [Hydromorp* Unknown - Meperidine - Pentazocine - Pioglitazone Unknown - Propoxyphene Review of Systems Constitutional: Positive for fatigue. Negative for chills and fever. HENT: Positive for congestion. Negative for ear pain, rhinorrhea and sore throat. Respiratory: Positive for cough, shortness of breath and wheezing. Cardiovascular: Positive for chest pain. Negative for leg swelling. Gastrointestinal: Negative for abdominal pain, diarrhea, nausea and vomiting. Genitourinary: Negative for dysuria, flank pain, frequency and hematuria. Musculoskeletal: Negative for back pain. Skin: Negative for rash. Neurological: Positive for weakness. Negative for speech difficulty, light-headedness, numbness and headaches. Psychiatric/Behavioral: Negative for hallucinations and suicidal ideas. Physical Exam BP 144/66 Pulse 60 Temp (Src) 98.2 (Oral) Resp 20 Ht 5' 8 (1.73m) Wt 224 lb (101.6kg) SpO2 94% BMI 34.07 kg/(m2). Physical Exam Constitutional: She is oriented to person, place, and time. Chronically ill, no acute distress, wheezing throughout, rales at the bases bilaterally, not impressive leg edema relative to her condition HENT: Head: Normocephalic and atraumatic. Mouth/Throat: No oropharyngeal exudate. Dry mucous membranes Eyes: Pupils are equal, round, and reactive to light. Neck: Normal range of motion. Neck supple. No tracheal deviation present. Cardiovascular: Normal rate and intact distal pulses. Exam reveals no gallop and no friction rub. No murmur heard. Pulmonary/Chest: Effort normal. No respiratory distress. She has wheezes. She has rales. Abdominal: Soft. Bowel sounds are normal. She exhibits no distension. There is no tenderness. There is no rebound and no guarding. Musculoskeletal: Normal range of motion. She exhibits no edema. Neurological: She is alert and oriented to person, place, and time. No cranial nerve deficit. She exhibits normal muscle tone. Skin: Skin is warm and dry. No erythema. There is pallor. Psychiatric: She has a normal mood and affect. Her behavior is normal. Judgment and thought content normal. Nursing note and vitals reviewed. Diagnostic Testing ED Labs Ordered and Reviewed CBC + DIFF - Abnormal; Notable for the following: Result Value Ref Range WBC 13.04 (*) 3.70 - 11.00 k/uL RDW-CV 15.7 (*) 11.5 - 15.0 % Platelet Count 130 (*) 150 - 400 k/uL Abs Neut (ANC) 12.17 (*) 1.45 - 7.50 k/uL Abs Lymph 0.42 (*) 1.00 - 4.00 k/uL All other components within normal limits COMP METABOLIC PANEL - Abnormal; Notable for the following: Albumin 3.3 (*) 3.9 - 4.9 g/dL Alkaline Phosphatase 140 (*) 32 - 117 U/L Glucose 556 (*) 74 - 99 mg/dL BUN 40 (*) 7 - 21 mg/dL Creatinine 1.19 (*) 0.58 - 0.96 mg/dL Sodium 135 (*) 136 - 144 mmol/L Potassium 5.3 (*) 3.7 - 5.1 mmol/L Chloride 92 (*) 97 - 105 mmol/L CO2 33 (*) 22 - 30 mmol/L All other components within normal limits NT PRO BNP - Abnormal; Notable for the following: NT Pro BNP 2578 (*) <450 pg/mL All other components within normal limits CK TOTAL AND CK-MB - Abnormal; Notable for the following: MB 7.3 (*) <4.3 ng/mL All other components within normal limits TROPONIN T - Abnormal; Notable for the following: Troponin T 0.052 (*) 0.000 - 0.029 ng/mL All other components within normal limits CRITICAL CARE PROFILE VENOUS - Abnormal; Notable for the following: Lactate 2.4 (*) 0.5 - 2.2 mmol/L Oxyhemoglobin, Venous 43.2 (*) 60.0 - 85.0 % Bicarbonate, Venous 34.7 (*) 22.0 - 26.0 mmol/L pCO2, Venous 65.2 (*) 39.0 - 51.0 mmHg All other components within normal limits MAGNESIUM BLD PROTHROMBIN TIME/PT ACTIVATED PTT BLOOD CULTURE DRAW BLOOD CULTURE DRAW Procedures Medical Decision Making / ED Course ED Course Course: Vital signs were reviewed. Triage records were reviewed. Medical records were reviewed. Nursing notes were reviewed and incorporated. The following medications were administered: duoneb, albuterol, solumedrol, vancomycin, aztreonam Patient was place on oxygen. Patient placed on monitor ECG reviewed and interpreted as V paced Labs reviewed and interpreted as below. Radiographs were reviewed as below. The case was discussed with the admitting physician. Medical Decision Making: Differential diagnosis: COPD exacerbation, ongoing, pneumonia, electrolyte disarray, anemia, ACS less likely, CHF much less likely with clinical appearance and profound right heart failure on recent echocardiogram, much less likely PE based on symptoms and already on direct oral anticoagulant, other causes of similar symptoms. Assessment and plan: Ms. Baca is a pleasant 77-year-old female who appears adequately diuresis and still is having a lot of dyspnea as she weans from prednisone. We will treat with steroids and antibiotics and likely admit her. CXR LLL ? Infiltrate, WBC down to 13, diastolic bp low but improved. Dr. Edmonds will admit. Minimal CO2 retention no need for bipap now. LA 2.4 not clinically c/w acute sepsis, 500 cc bolus for low diastolic. The attending who evaluated and managed this patient was Leandro Kauffman . Plan: The patient was admitted to Regular nursing floor. Case discussed with admitting physician, Dr. Edmonds. Consent: A procedure or transfusion was performed - No Leandro Kauffman MD Encounter Diagnosis ICD-10-CM 1. COPD exacerbation (HCC) J44.1 2. Pulmonary infiltrate in left lung on chest x-ray R91.8 Plan The Patient was ADMITTED TO: Regular nursing floor. Condition at time of disposition: improved and stable SIGNATURE: MD Leandro Michelle MD 12/23/17 1456 Previous Version Zenobia Soto RN, RN 12/23/2017 3:22 PM Signed CARE MANAGEMENT: ASSESSMENT AND DISCHARGE PLAN SERVICE DATE: 12/23/2017 SERVICE TIME: 3:14 PM PRIMARY CARE PHYSICIAN: Jameson Kamara MD (confirmed) ADMISSION STATUS: Emergency Needs Prior to Discharge: To Be Determined;Home Care Order;OT/PT Evaluation MEDICAL: Patient/Home And School Visitor Stated Goals: To have reduction in symptoms Health Insurance: MEDICARE A AND B confirmed Health Issues Impacting Discharge Plan: COPD, CHF,DM Last Admission Date: Previous admit date: 12/10/2017 Is this Within the Past 30 days? Yes Is This a Planned Readmission? No: Recurrent symptoms of underlying disease Followed Up with Appointment Prior to Admission: Appointment completed Where Did the Patient Come From? Home Intervention Taken to Avoid Future Readmission? [facility] Health Literacy: 1. How often do you need to have someone help you when you read instructions, pamphlets, or other written material from your doctor or pharmacy? Always - 5 2. How confident are you filling out medical forms by yourself? Not at all - 5 If Patient scores > 3 on either question, the following interventions were put into place: Use of plain language and active listening with Patient and family FUNCTIONAL AND COGNITIVE/BEHAVIORAL PRIOR TO ADMISSION: Baseline Mental Status: Alert AND Oriented, Person, Place , Time and Situation Functional Status: Needs Assistance Does Patient Currently Receive Any Community Services or Home Care? Home Health Care Agency: [facility] [place]; ; Active. Equipment Prior to Admission: Bedside Commode Oxygen 2.5 liters per minute Rollator Scooter Walker Has the Patient Been in a Snf Facility in the Past 30 days? No SOCIAL: Living Arrangement: Home Lives With: Daughter Financial Resources: Retired Primary Contact: Extended Emergency Contact Information Primary Emergency Contact: Octavia Soliman Address: [address] [place] [address] Relation: Daughter Supportive: Yes Other Important Patient Contacts: None Caregiver Assessment: Caregiver is ready, willing and able to meet the patient's needs as recommended by the inter-professional team? TBD Patient's transition needs and plan for meeting these needs: continue with HHC Does the patient have an acute stroke diagnosis, or has the patient had a stroke during this admission? No Medication Adherence: I am convinced of the importance of my prescription medication: Agree completely - 0 I worry that my prescription medication will do more harm than good to me Disagree completely - 0 I feel financially burdened by my [id number] expenses for my prescription medication: Agree completely - 2 Patient is categorized as medium risk score 2-7: The following interventions are being put into place - Consult social work and Consult pharmacy Are you interested in bedside delivery of your medications? No,[facility] in [place] Food Concerns: In the Last Month, Have You had Trouble Getting Food? No trouble getting food During the Last Month, Have You Worried Whether Your Food Would Run Out Before You Had Enough Money to Buy More? No Is the Patient Psychosocially Complex? No ASSESSMENT AND PLAN: Medical Needs: 2 or more chronic diseases Psychosocial Needs: None FREEDOM OF CHOICE EXPLAINED: Yes HHC/SNF POTENTIAL TRANSITION PLANS Home Retirement OT/PT CM in to speak with patient and doreen Andujar at bedside, introduced self and role. Pt is a 77-year-old female presenting today with worsening trouble breathing, pt was just in the hospital for COPD and CHF. Pt is AANDOx3-4, resides with dtr (who is caregiver) in a 1SH. 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 Per pt, plan is to return home with assist from dtr and continue [facility]. CM instructed pt that a CM will remain available for any d/c needs. Pt had no further questions/concerns voiced at this time. SIGNATURE: Zenobia Soto RN PATIENT NAME: Luz Baca DATE: December 23, 2017 TIME: 3:14 PM PAGER/CONTACT #: [phone] Radha Edmonds MD 12/23/2017 8:49 PM Signed HOSPITAL MEDICINE HISTORY AND PHYSICAL EXAM PATIENT NAME: Luz Baca SERVICE DATE: 12/23/2017 SERVICE TIME: 3:59 PM Primary Care Physician: Jameson Kamara MD NIGHT COVERAGE Page [phone] for any questions between 5.30p-7.30a ASSESSMENT AND PLAN HCAP (healthcare-associated pneumonia) Feeling not better since patient was discharged in end of the Nov. - most likely have mucus plugs - started with IV Vanco and Aztreonam - sputum culture - duoneb q4hr + prn - Mucinex BID Acute on chronic combined systolic and diastolic CHF (congestive heart failure) - most likely some fluid overload - Pro BNP 2600 - cont with fluid restriction - Cont lasix IV - Last Echo 12/21/2017 LVEF 50% with Grade 3 diastolic dysfunction Acute on chronic respiratory failure with hypoxia - chronic home O2 with 2.5 l/min NC - supplement as needed COPD with acute exacerbation - Given on dose in ER with Solumedrol - cont with treatment as above Atrial fibrillation - On BB - Cont Eliquis - Rate controlled Diabetes mellitus due to underlying condition, uncontrolled, with stage 3 chronic kidney disease, with long-term current use of insulin On amaryl and sitagliptan Will start sliding scale option 1 coverage Follow accuchecks HgbA1c: >15 (Oct 2707/2018) Carotid artery disease H/O of CABGx2 (DEBORAH-LAD, SVG-PDA ) in 2004 On ezetimibe, simvastatin, metoprolol, benazepril Essential hypertension On metoprolol, norvasc, benazepril will titrate GERD (gastroesophageal reflux disease) On nexium - protonix here Hyperlipidemia On ezetimibe and simvastatin LDL 61 Sleep apnea Should wears CPAP at home But not used for years Last sleep study in possible 2009 Obesity Diet/exercise/weightloss discussed with patient SUBJECTIVE CHIEF COMPLAINT: Chest pain and SOB since discharge on Dec 15. HPI: This is a 77 year old female who presents with hx of AFIB, cardiomegaly, PM, CHF, CAD, CKD, COPD, home O2 2.5 l/m, GERD, morbid obesity, pneumonia, who was admitted on Dec 10 to and discharged home. Since than not been feeling much better. Difficult to take deep breath. Has chest pain in the mid chest. With pushing on the chest it gets worse. Not sure of pleurisy. Still SOB and still productive cough with sometime clear and at times benavides/yelloish thick phlegm. No fevers nor chills. Appetite is terrible due to the steroids. PAST MEDICAL HISTORY: PAST MEDICAL HISTORY Diagnosis Date - Arthritis - Atrial fibrillation (HCC) - CAD (coronary artery disease) stents x9, defibrillator, CABG. Seeing Dr. Cardona - Cardiac defibrillator in place - Cardiomegaly - Carotid artery disease (HCC) left - CKD (chronic kidney disease), stage IV ([facility]) - COPD (chronic obstructive pulmonary disease) ([facility]) Dr. Cruz - Depression - Diabetes ([facility]) - Diabetic neuropathy (HCC) - GERD (gastroesophageal reflux disease) - Gout - HH (hiatus hernia) - HOCM (hypertrophic obstructive cardiomyopathy) ([facility]) - HTN (hypertension) - Hyperlipidemia - Morbid obesity with BMI of 40.0-44.9, adult ([facility]) - Pacemaker - Pneumonia h/o pneumonia/bronchitis - Renal insufficiency 2003 post op - Sleep apnea 2011 not on CPAP, unable to tolerate mask 02/2017 - SVT (supraventricular tachycardia) ([facility]) NSVT and questionable VT in 2003 post op PAST SURGICAL HISTORY: PAST SURGICAL HISTORY Procedure Laterality Date - PAST SURGICAL HISTORY OF 07/18/2004 Septal myectomy and CABG x2 (DEBORAH-LAD, SVG-PDA). - PAST SURGICAL HISTORY OF left breast nodule removed - PAST SURGICAL HISTORY OF hysterectomy - PAST SURGICAL HISTORY OF perianal abscess drained - PAST SURGICAL HISTORY OF cholecystectomy - PAST SURGICAL HISTORY OF skin lesions removed FAMILY HISTORY: FAMILY HISTORY Problem Relation Age of Onset - Hypertension Mother living at age 93, HTN - Heart Failure Mother NE - Cancer Father age 71, lung cancer SOCIAL HISTORY: Social History Substance Use Topics - Smoking status: Former Smoker Packs/day: 2.50 Years: 43.00 Types: Cigarettes Start date: 1961 Quit date: 07/07/2004 - Smokeless tobacco: Never Used - Alcohol use No 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 No wheezing or shortness of breath. - Penicillins Rash, Itching Tolerated ceftriaxone during 11/2017 admission - Tetracycline GI Upset Emesis and diarrhea. - Atorvastatin Unknown - Bactrim [Sulfametho* Unknown I don't remember. - Codeine Unknown - Dilaudid [Hydromorp* Unknown - Meperidine - Pentazocine - Pioglitazone Unknown - Propoxyphene REVIEW OF SYSTEM: PAIN ASSESSMENT: Positive for chest pain. Negative history of chronic pain, or current treatment for a chronic pain condition. GENERAL: No weight loss, malaise or fevers. HEENT: Negative for frequent or significant headaches, No changes in hearing or vision, no nose bleeds or other nasal problems NECK: Negative for lumps, goiter, pain and significant neck swelling RESPIRATORY: Positive for cough, wheezing and shortness of breath, but no hemoptysis CARDIOVASCULAR: Positive for chest pain, no leg swelling or palpitations. GI: No nausea, vomiting, or diarrhea : No history of dysuria, frequency or incontinence. MUSCULOSKELETAL: Negative for joint pain or swelling, back pain or muscle pain. SKIN: Negative for lesions, rash, and itching. PSYCH: Negative for sleep disturbance, mood disorder and recent psychosocial stressors. HEMATOLOGY/LYMPHOLOGY: Negative for prolonged bleeding, bruising easily or swollen nodes. ENDOCRINE: Negative for cold or heat intolerance, polyuria, polydipsia and goiter. NEURO: No history of headaches, syncope, paralysis, seizures or tremors OBJECTIVE PHYSICAL EXAM: BP 144/66 Pulse 60 Temp (Src) 98.2 (Oral) Resp 20 Ht 5' 8 (1.73m) Wt 224 lb (101.6kg) SpO2 94% BMI 34.07 kg/(m2). GENERAL: alert, no distress, cooperative SKIN: Skin color, texture, turgor normal. No rashes or lesions. HEAD/SINUSES: No significant findings. EYES: PERRLA and EOMI OROPHARYNX: Lips, mucosa, and tongue normal. Teeth and gums normal. Oropharynx normal. NECK: no jugulovenous distention, no carotid bruits, carotid pulse normal contour, supple BACK: Back symmetric, Normal curvature, ROM normal, No CVAT. LUNGS: Lungs with reduced air exchange . CARDIAC: normal S1 and S2; no rubs, murmurs, or gallops ABDOMEN: Abdomen soft, non-tender. BS normal. No masses or organomegaly. EXTREMITIES: Extremities normal. No deformities, edema, clubbing or skin discoloration., No ulcers NEURO: Reflexes normal and symmetric. Sensation grossly intact., Cranial nerves II-XII intact PULSES: 2+ radial, 2+ carotid DATA: Diagnostic tests reviewed for today's visit: Most recent labs Most recent imaging Most recent EKG CBC: WBC 13.04 12/23/2017 Hemoglobin 12.7 12/23/2017 Hematocrit 41.0 12/23/2017 Platelet Count 130 12/23/2017 CMP: Sodium 135 12/23/2017 Potassium 5.3 12/23/2017 BUN 40 12/23/2017 Creatinine 1.19 12/23/2017 Glucose 556 12/23/2017 Chloride 92 12/23/2017 CO2 Content, Venous 33 12/23/2017 VTE Prophylaxis: Patient is already anti-coagulated. Disposition: Home with C vs Extended Care Facility Plan of care discussed with: Patient, Family and RN SIGNATURE: Radha Edmonds MD DATE: December 23, 2017 TIME: 3:59 PM HERBERT MARINO, PHARMACIST 12/23/2017 4:54 PM Signed MEDICATION HISTORY Patient Name:Josephine Baca : 1940 Source of history:Patient: Reliability of source: Appears reliable, clearly identified: Medication name, Medication dose, Medication route, Medication frequency and Timing of last dose and Pharmacy records: [facility] [place] pharmacy Medication Nonadherence Identified: No barriers noted The above information represents the best possible medication history: Yes Additional comments: ? Medications removed: ? Symbicort - recently discontinued by provider, per patient ? Atrovent - recently discontinued by provider, per patient ? Spiriva - recently discontinued by provider, per patient ? Medications adjusted: ? Colchicine - sig; patient takes 1 tab PO every day ? Gabapentin - sig (2 caps PO BID) ? Novolog - dose (patient currently injecting 15 units with each meal) ? Lantus - dose (patient currently injecting 60 units qAM and 40 units qPM) ? Isosorbide - sig (patient reports only taking once daily) ? Pantoprazole - sig (patient reports only taking once daily) ? Simvastatin - sig (patient takes in the morning) ? Medications added: ? Benzonatate ? Allergy list modifications: ? Added my throat swells up to Bactrim allergy ? Added Rash to tetracycline allergy ? Added rash to atorvastatin allergy ? Added numbness to codeine intolerance ? Added mental status change to Dilaudid intolerance Allergies: ALLERGIES Allergen Reactions - Bactrim [Sulfametho* Other: See Comments My throat swells up. - Latex Rash, Itching Itching and welts. No wheezing or shortness of breath. - Penicillins Rash, Itching Tolerated ceftriaxone during 11/2017 admission - Tetracycline Rash, GI Upset Emesis and diarrhea. - Atorvastatin Rash - Codeine Other: See Comments Numbness - Dilaudid [Hydromorp* Mental Status Change - Meperidine - Pentazocine - Pioglitazone Unknown - Propoxyphene Preferred Pharmacy: [facility] Current [facility] Medications: Prior to Admission medications as of 12/23/17 1646 Medication Sig Last Dose Taking colchicine (COLCRYS) 0.6 mg tablet Take 0.6 mg by mouth once daily. 12/23/2017 at 0900 Yes apixaban (ELIQUIS) 5 mg tab(s) Take 5 mg by mouth twice daily. 12/23/2017 at 0900 Yes furosemide (LASIX) 40 mg tablet Take 60 mg (1.5 tablets) by mouth every morning and 40 mg (1 tablet) every day around noon. 12/23/2017 at 0900 Yes gabapentin (NEURONTIN) 300 mg capsule Take 600 mg by mouth twice daily. 12/23/2017 at 0900 Yes insulin aspart U-100 (NOVOLOG FLEXPEN U-100 INSULIN) 100 unit/mL inpn Inject 15 Units subcutaneously three times daily with meals. 12/23/2017 at 0900 Yes insulin glargine (LANTUS SOLOSTAR U-100 INSULIN) 100 unit/mL (3 mL) inpn Inject 60 Units subcutaneously every morning. 12/23/2017 at 0900 Yes insulin glargine (LANTUS SOLOSTAR U-100 INSULIN) 100 unit/mL (3 mL) inpn Inject 40 Units subcutaneously daily at bedtime. 12/22/2017 at 2200 Yes isosorbide mononitrate ER (IMDUR) 30 mg 24 hr tablet Take 30 mg by mouth once daily. 12/23/2017 [address] (PROTONIX) 40 mg tablet Take 40 mg by mouth once daily. 12/23/2017 at 0900 Yes predniSONE (DELTASONE) 10 mg tablet Taper: 40mg PO daily x 3 days, 30mg PO daily x 3 days, 20mg PO daily x 3 days, 10mg PO daily x 3 days, then stop. 12/23/2017 at 0900 Yes simvastatin (ZOCOR) 40 mg tablet Take 40 mg by mouth every morning. 12/23/2017 at 0900 Yes benzonatate (TESSALON PERLE) 100 mg capsule Take 100 mg by mouth three times daily as needed. 12/23/2017 at 0900 Yes spironolactone (ALDACTONE) 25 mg tablet Take 1 tablet by mouth once daily. 12/23/2017 at 0900 Yes nystatin (MYCOSTATIN) 100,000 unit/mL suspension Take 2 mL by mouth four times daily for 7 days. SWISH AND SWALLOW 2 ML 4 TIMES PER DAY. 12/23/2017 at 0900 Yes ipratropium-albuterol (DUONEB) 0.5 mg-3 mg(2.5 mg base)/3 mL nebu Inhale 3 mL as instructed every 4 hours as needed. 12/23/2017 at Unknown time Yes guaiFENesin-dextromethorphan (ROBITUSSIN DM) 100-10 mg/5 mL syrup Take 5-10 mL by mouth every 6 hours as needed for Cough. 12/23/2017 at 0900 Yes nitroglycerin sublingual (NITROQUICK) 0.4 mg SL tablet Dissolve 1 tablet under the tongue every 5 minutes as needed. Unknown at Unknown time Yes potassium chloride ER (K-DUR, KLOR-CON) 10 mEq tablet TAKE ONE TABLET BY MOUTH DAILY WITH BREAKFAST 12/23/2017 at 0900 Yes albuterol HFA (VENTOLIN HFA) 90 mcg/actuation inhaler Inhale 2 Puffs as instructed every 4 hours as needed. 12/22/2017 at Unknown time Yes OXYGEN, HOME THERAPY, Inhale 2.5 L/min as instructed as directed. Unknown at Unknown time Yes HERBERT MARINO, PHARMACIST December 23, 2017 4:48 PM Geraldo Mak RN, RN 12/23/2017 6:32 PM Signed Nursing Progress Note Patient Name: Luz Baca [place] [facility] [id number] Daily Note: 1800- Patient arrived to unit at this time in stable condition. Patient is on 2 L O2 via NC. IV ATB infusing on arrival. Patient ambulated from cart into room 319-2. Patient tolerated with mild respiratory distress. Family at bedside. Patient ambulated to with supervision and use of IV pole. NAD noted, tolerated with pursed lip breathing. This note was completed by: Grealdo Mak, ALLYSON Potter Pharmacist 12/23/2017 8:15 PM Signed PHARMACY VANCOMYCIN DOSING NOTE Patient Name: Luz Baca Admission Date: 12/23/2017 Date of Consult: 12/23/2017 Time of Consult: 8:14 PM Indication: Pneumonia Goal Range: 15-25 mcg/mL RECOMMENDATIONS/PLAN: Pharmacy consulted for vancomycin dosing for Luz Baca, a 77 year old, female who is being treated with vancomycin. 1. Patient is currently ordered Vancomycin 1 g IV q24h. Today is day 1st of therapy. 2. No vancomycin level has been drawn for this dosing regimen. 3. The present dose of vancomycin is the recommended dosage for this patient at this time. Continue therapy as prescribed. 4. The next vancomycin level will be ordered for 12/27 unless clinically indicated sooner. (Pharmacy will order) We will follow patient renal function, vancomycin levels and doses with you during the course of therapy. Additional recommendations will appear in follow up notes. Age: [age] year old Allergies: ALLERGIES Allergen Reactions - Bactrim [Sulfametho* Other: See Comments My throat swells up. - Latex Rash, Itching Itching and welts. No wheezing or shortness of breath. - Penicillins Rash, Itching Tolerated ceftriaxone during 11/2017 admission - Tetracycline Rash, GI Upset Emesis and diarrhea. - Atorvastatin Rash - Codeine Other: See Comments Numbness - Dilaudid [Hydromorp* Mental Status Change - Meperidine - Pentazocine - Pioglitazone Unknown - Propoxyphene Last 3 Encounter Wt Readings: Date: Wt: 12/23/2017 103.7 kg (228 lb 11.2 oz) 12/21/2017 101.7 kg (224 lb 1.6 oz) 12/10/2017 100.1 kg (220 lb 11.2 oz) Last 1 Encounter Ht Readings: Date: Ht: 12/23/2017 172.7 cm (5' 8) CrCl: 47.8 mL/min Temp (24hrs), Av.8 ?C (98.3 ?F), Min:36.6 ?C (97.9 ?F), Max:37.1 ?C (98.8 ?F) - Current Temp: 37.1 ?C (98.8 ?F) Labs BUN (mg/dL) Date Value 12/23/2017 40 (H) 12/15/2017 76 (H) 12/14/2017 75 (H) Creatinine (mg/dL) Date Value 12/23/2017 1.19 (H) 12/15/2017 1.78 (H) 12/14/2017 1.74 (H) WBC (k/uL) Date Value 12/23/2017 13.04 (H) 12/15/2017 16.09 (H) 12/14/2017 13.07 (H) Vancomycin Levels: No results found for: HUGO Potter, Pharmacist Rosi Moralez, RN, RN 12/23/2017 10:40 PM Addendum Nursing Progress Note Patient Name: Luz Baca [place] [facility] [id number] Daily Note:2054: Dr. Brown aware of blood sugar of 576. No new orders at this time. 2238: Dr. Brown notified of HR 41. No new orders at this time. 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 Brown See Documentation Related to: Additional Comments : Notified of HR as low as 41. No new orders at this time. This note was completed by: ALLYSON Abdul MD 12/25/2017 1:11 AM Addendum HOSPITAL MEDICINE PROGRESS NOTE Name: Luz Baca SERVICE DATE: 12/24/2017 SERVICE TIME: 2:01 PM LOCATION / ROOM: [place] [address] [address] Hospital Medicine/Primary Attending: Radha Edmonds MD NIGHT COVERAGE BETWEEN 5.30P-7.30A Page [phone] ASSESSMENT AND PLAN HCAP (healthcare-associated pneumonia) Feeling some better better today. - most likely have mucus plugs - started with IV Vanco and Aztreonam - sputum culture - duoneb q4hr + prn - Mucinex BID ? Acute on chronic combined systolic and diastolic CHF (congestive heart failure) - most likely some fluid overload - Pro BNP 2600 - cont with fluid restriction - Cont lasix IV - Last Echo 12/21/2017 LVEF 50% with Grade 3 diastolic dysfunction ? Acute on chronic respiratory failure with hypoxia - chronic home O2 with 2.5 l/min NC - supplement as needed ? COPD with acute exacerbation - Given on dose in ER with Solumedrol - cont with treatment as above ? Atrial fibrillation - Not on any BB - Cont Eliquis - Rate controlled - on telemetry monitoring noticed to be low 40's in HR - PM/ICD check in AM Diabetes mellitus due to underlying condition, uncontrolled, with stage 3 chronic kidney disease, with long-term current use of insulin On amaryl and sitagliptan Will start sliding scale option 1 coverage Follow accuchecks HgbA1c: >15 (Oct 2707/2018) ? Carotid artery disease H/O of CABGx2 (DEBORAH-LAD, SVG-PDA ) in 2004 On ezetimibe, simvastatin, metoprolol, benazepril ? Essential hypertension On metoprolol, norvasc, benazepril will titrate ? GERD (gastroesophageal reflux disease) On nexium - protonix here ? Hyperlipidemia On ezetimibe and simvastatin LDL 61 ? Sleep apnea Should wears CPAP at home But not used for years Last sleep study in possible 2008 ? Obesity Diet/exercise/weightloss discussed with patient ? SUBJECTIVE INTERVAL HPI: Feels better, no fever, chills, cp nor palpitations. No events overnight MEDICATIONS: Reviewed Current Facility-Administered Medications: cefepime 2 g in D5W 100 mL MB+ (MAXIPIME) 2 g INTRAVENOUS q 12 H Radha Adams) Merarid 2 g at 12/24/17 1836 dextrose 40 % 15 g 15 g ORAL PRN Leandro Kauffman MD Or glucagon 1 mg injection (GLUCAGEN) 1 mg INTRAMUSCULAR PRN Leandro Kauffman MD Or dextrose 50% in water 25 mL syringe 12.5 g INTRAVENOUS PRN Leandro Kauffman MD nystatin 2 mL oral liquid (MYCOSTATIN) 200,000 Units ORAL QID Radha Adams) Thuestad 2 mL at 12/24/172128 simvastatin 40 mg tab(s) (ZOCOR) 40 mg ORAL AT BEDTIME Wind G[place]bonie Adams) Thuestad 40 mg at 12/24/172127 gabapentin 600 mg cap(s) (NEURONTIN) 600 mg ORAL BID Radha Ebonie Adams) Thuestad 600 mg at 12/24/172127 ipratropium-albuterol 3 mL nebulizer solution (DUONEB) 3 mL INHALATION q 4 H while awake Wind [place] Adams) Thuestad 3 mL at 12/24/172048 colchicine 0.6 mg tab(s) 0.6 mg ORAL DAILY [place] Ebonie Adams) Thuestad 0.6 mg at 12/24/17 0832 apixaban 5 mg tab(s) (ELIQUIS) 5 mg ORAL BID Radha Adams) Thuestad 5 mg at 12/24/172127 predniSONE 40 mg tab(s) (DELTASONE) 40 mg ORAL DAILY Wind [place] Adams) Thuestad 40 mg at 12/24/17 0829 insulin lispro 10 Units injection (rapid acting) (HumaLOG) 10 Units SUBCUTANEOUS TID w MEALS Radha Adams) Thuestad 10 Units at 12/24/17 1838 insulin glargine 45 Units injection (long acting) (LANTUS) 45 Units SUBCUTANEOUS DAILY (8 AM) Radha Loomis Md Thuestad 45 Units at 12/24/17 0832 insulin glargine 30 Units injection (long acting) (LANTUS) 30 Units SUBCUTANEOUS AT BEDTIME Radha Adams) Thuestad 30 Units at 12/24/172128 guaiFENesin-dextromethorphan 100-10 mg/5 mL 5-10 mL oral liquid (ROBITUSSIN DM) 5-10 mL ORAL q 6 H PRN Radha Adams) Thuestad potassium chloride ER 10 mEq tab(s) (K-DUR, KLOR-CON) 10 mEq ORAL DAILY Radha Adams) Thuestad 10 mEq at 12/24/17 0830 spironolactone 25 mg tab(s) (ALDACTONE) 25 mg ORAL DAILY Radha Adams) Thuestad 25 mg at 12/24/[address] 40 mg tab(s) (PROTONIX) 40 mg ORAL DAILY (6 AM) Radha Adams) Thuestad 40 mg at 12/24/17 0613 isosorbide mononitrate ER 30 mg tab(s) (IMDUR) 30 mg ORAL DAILY Radha Ebonie Adams) Thuestad 30 mg at 12/24/17 0829 nitroglycerin sublingual 0.4 mg tab(s) (NITROQUICK) 0.4 mg SUBLINGUAL q 5 MIN PRN Radha Adams) Thuestad 0.9% NaCl 3-5 mL 3-5 mL INTRAVENOUS q 12 H Radha Adams) Thuestad 5 mL at 12/24/17 2129 furosemide 40 mg injection (LASIX) 40 mg INTRAVENOUS DAILY Radha Adams) Thuestad 40 mg at 12/24/17 0826 benzonatate 100 mg cap(s) (TESSALON PERLE) 100 mg ORAL TID Hareesh Singam 100 mg at 12/24/17 2128 insulin lispro injection (rapid acting) (HumaLOG) SUBCUTANEOUS w MEALS Caroline (Audio Production Engineer) Garcia 8 Units at 12/24/17 1327 insulin lispro injection (rapid acting) (HumaLOG) SUBCUTANEOUS AT BEDTIME Caroline (Audio Production Engineer) Garcia OBJECTIVE PHYSICAL EXAM: BP 130/53 Pulse 63 Temp (Src) 97.5 (Oral) Resp 18 Ht 5' 8 (1.73m) Wt 222 lb 9.6 oz (101.0kg) SpO2 96% BMI 33.85 kg/(m2). GENERAL: Alert, no distress, cooperative, Obese SKIN: Skin color, texture, turgor normal. No rashes or lesions. EYES: PERRLA, EOMI OROPHARYNX: Lips, mucosa, and tongue normal. Teeth and gums normal. Oropharynx normal. NECK: No jugulovenous distention, No carotid bruits, Carotid pulse normal contour, Supple LUNGS: Lungs clear to auscultation, Good diaphragmatic excursion CARDIAC: Normal S1 and S2; no rubs, murmurs, or gallops ABDOMEN: Abdomen soft, non-tender, BS normal, No masses or organomegaly EXTREMITIES: Extremities normal, no deformities, edema, clubbing or skin discoloration. Good capillary refill., No ulcers NEURO: Gait normal. Reflexes normal and symmetric. Sensation grossly intact, Cranial nerves II-XII intact PULSES: 2+ radial, 2+ carotid DATA: Diagnostic tests reviewed for today's visit: Most recent labs CBC: WBC 16.13 12/24/2017 Hemoglobin 12.9 12/24/2017 Hematocrit 41.7 12/24/2017 Platelet Count 135 12/24/2017 CMP: Sodium 139 12/24/2017 Potassium 4.9 12/24/2017 BUN 46 12/24/2017 Creatinine 1.35 12/24/2017 Glucose 371 12/24/2017 Chloride 95 12/24/2017 CO2 Content, Venous 38 12/24/2017 VTE Prophylaxis: Patient is already anti-coagulated. Disposition: Home with [facility] Plan of care discussed with: Patient SIGNATURE: Radha Edmonds MD DATE: December 25, 2017 TIME: 1:01 AM Previous Version VU STEIN, PHARMACY RESDIENT 12/24/2017 4:11 PM Signed Antimicrobial Stewardship [id number] Patient: Luz Baca Age: [age] year old Allergies: ALLERGIES Allergen Reactions - Bactrim [Sulfametho* Other: See Comments My throat swells up. - Latex Rash, Itching Itching and welts. No wheezing or shortness of breath. - Penicillins Rash, Itching Tolerated ceftriaxone during 11/2017 admission - Tetracycline Rash, GI Upset Emesis and diarrhea. - Atorvastatin Rash - Codeine Other: See Comments Numbness - Dilaudid [Hydromorp* Mental Status Change - Meperidine - Pentazocine - Pioglitazone Unknown - Propoxyphene Admit Date: 12/23/2017 12:59 PM Antibiotic Review: Current Antibiotic: Vancomycin and Aztreonam Indication: Pneumonia Recommendations on 12/24/2017: Based on the review of the patient?s medical record and documentation, the Antimicrobial Stewardship Team recommends changes to antimicrobials as recommended below. Recommendation: discontinue vancomycin and adjust aztreonam to cefepime (patient has tolerated ceftriaxone in the past) Dr. Edmonds was contacted to discuss the above recommendations. The following changes/clarifications were authorized for Ms. Baca - Discontinued: Vancomycin, aztreonam - Begin: Cefepime Current Meds: Current hospital medications: dextrose 40 % 15 g 15 g ORAL PRN glucagon 1 mg injection (GLUCAGEN) 1 mg INTRAMUSCULAR PRN dextrose 50% in water 25 mL syringe 12.5 g INTRAVENOUS PRN nystatin 2 mL oral liquid (MYCOSTATIN) 200,000 Units ORAL QID simvastatin 40 mg tab(s) (ZOCOR) 40 mg ORAL AT BEDTIME gabapentin 600 mg cap(s) (NEURONTIN) 600 mg ORAL BID ipratropium-albuterol 3 mL nebulizer solution (DUONEB) 3 mL INHALATION q 4 H while awake colchicine 0.6 mg tab(s) 0.6 mg ORAL DAILY apixaban 5 mg tab(s) (ELIQUIS) 5 mg ORAL BID predniSONE 40 mg tab(s) (DELTASONE) 40 mg ORAL DAILY insulin lispro 10 Units injection (rapid acting) (HumaLOG) 10 Units SUBCUTANEOUS TID w MEALS insulin glargine 45 Units injection (long acting) (LANTUS) 45 Units SUBCUTANEOUS DAILY (8 AM) insulin glargine 30 Units injection (long acting) (LANTUS) 30 Units SUBCUTANEOUS AT BEDTIME guaiFENesin-dextromethorphan 100-10 mg/5 mL 5-10 mL oral liquid (ROBITUSSIN DM) 5-10 mL ORAL q 6 H PRN potassium chloride ER 10 mEq tab(s) (K-DUR, KLOR-CON) 10 mEq ORAL DAILY spironolactone 25 mg tab(s) (ALDACTONE) 25 mg ORAL DAILY pantoprazole DR 40 mg tab(s) (PROTONIX) 40 mg ORAL DAILY (6 AM) isosorbide mononitrate ER 30 mg tab(s) (IMDUR) 30 mg ORAL DAILY nitroglycerin sublingual 0.4 mg tab(s) (NITROQUICK) 0.4 mg SUBLINGUAL q 5 MIN PRN 0.9% NaCl 3-5 mL 3-5 mL INTRAVENOUS q 12 H furosemide 40 mg injection (LASIX) 40 mg INTRAVENOUS DAILY aztreonam 1 g in D5W 100 mL MB+ (AZACTAM) 1 g INTRAVENOUS q 8 HR vancomycin dosing and monitoring per pharmacy OTHER As Directed vancomycin 1.5 g in D5W 250 mL (VANCOCIN) 1.5 g INTRAVENOUS q 24 HR benzonatate 100 mg cap(s) (TESSALON PERLE) 100 mg ORAL TID insulin lispro injection (rapid acting) (HumaLOG) SUBCUTANEOUS w MEALS insulin lispro injection (rapid acting) (HumaLOG) SUBCUTANEOUS AT BEDTIME Labs/Vitals on 12/24/2017: WBC Date Value Ref Range Status 12/24/2017 16.13 (H) 3.70 - 11.00 k/uL Final 12/23/2017 13.04 (H) 3.70 - 11.00 k/uL Final 12/15/2017 16.09 (H) 3.70 - 11.00 k/uL Final Creatinine Date Value Ref Range Status 12/24/2017 1.35 (H) 0.58 - 0.96 mg/dL Final 12/23/2017 1.19 (H) 0.58 - 0.96 mg/dL Final 12/15/2017 1.78 (H) 0.58 - 0.96 mg/dL Final Temp (24hrs), Av.6 ?C (97.9 ?F), Min:36.3 ?C (97.3 ?F), Max:37.1 ?C (98.8 ?F) Thank you for allowing me to participate in the care of this patient. Vu Stein, Pharm.D, Email Administrator [employer] And [employer] Visitor from the Antimicrobial Stewardship Team Pharmacy Extension: [phone] VU STEIN, PHARMACY RESDIENT 12/24/2017 4:11 PM Signed PHARMACY VANCOMYCIN DOSING NOTE Patient Name: Luz Baca Admission Date: 12/23/2017 Date of Consult: 12/24/2017 Time of Consult: 4:11 PM Indication: Pneumonia Goal Range: 15-25 mcg/mL RECOMMENDATIONS/PLAN: Pharmacy consulted for vancomycin dosing for Luz Baca, a 77 year old, female who is being treated with vancomycin for pneumonia. 1. The primary service has discontinued vancomycin therapy. Pharmacy vancomycin dosing service will sign off. Thank you for allowing us to participate in this patient's care. Please contact pharmacy if questions. Vu Stein, Pharm.D, Email Administrator [phone] Eduardo Mccarty, RD, LD 12/24/2017 5:54 PM Signed 1:30 pm NUTRITION THERAPY FOLLOW-UP NOTE SERVICE DATE: 12/24/2017 SERVICE TIME: 1:30 pm Anthropometrics: Height: 172.7 cm (5' 8) Current Weight: Weight: 101 kg (222 lb 9.6 oz) Body mass index is 33.85 kg/(m2). Admitting Diagnosis: Pulmonary infiltrate on chest x-ray [R91.8] HX: DM Present Diet Order: Carbohydrate Controlled, Electrolyte Controlled 4 gm Na and Fluid restriction of 1400 ml Reason for Visit: Nursing Admission Assessment Malnutrition Score Tool: 3 Plan of Care: Recommendation Monitor intake. Reviewed physician progress notes and labs. Will follow up in 3 days or as consulted. Discharge Plan: Carbohydrate Controlled, Electrolyte Controlled 4 gm Na MNT Billing Type: Initial Assess/15 min 1 unit SIGNATURE: Eduardo Mccarty RD, LD PATIENT NAME: Luz Baca DATE: December 24, 2017 TIME: 5:52 PM Chantelle Dobson RN, RN 12/25/2017 8:11 AM Signed Nursing Progress Note Patient Name: Luz Baca Patient Location: [place] [id number] Daily Note: 0809- Patient gluc 104. Patient has scheduled [address] Edmonds made aware and stated to only give 4 units. This note was completed by: Chantelle Dobson, ALLYSON Edmonds MD 12/25/2017 3:28 PM Signed HOSPITAL MEDICINE PROGRESS NOTE Name: Luz Baca SERVICE DATE: 12/25/2017 SERVICE TIME: 1:28 PM [place] [facility] [id number] Hospital Medicine/Primary Attending: Radha Edmonds MD NIGHT COVERAGE BETWEEN 5.30P-7.30A Page [phone] ASSESSMENT AND PLAN HCAP (healthcare-associated pneumonia) Feeling some better better today. - most likely have mucus plugs - started with IV Vanco and Aztreonam - sputum culture - duoneb q4hr + prn - Mucinex BID ?? Acute on chronic combined systolic and diastolic CHF (congestive heart failure) - most likely some fluid overload - Pro BNP 2600 - cont with fluid restriction - Cont lasix IV - Last Echo 12/21/2017 LVEF 50% with Grade 3 diastolic dysfunction - St Rob AICD / PM - minimal rate at 60 - nml function on check today. Result on chart. - negative 3.5 liter so far Acute on chronic respiratory failure with hypoxia? - chronic home O2 with 2.5 l/min NC - supplement as needed - back to base line COPD with acute exacerbation? - Given on dose in ER with Solumedrol - cont with treatment as above - wean steroids today to 20 mg Atrial fibrillation - Not on any BB - Cont Eliquis - Rate controlled - on telemetry monitoring noticed to be low 40's in HR - PM/ICD check in AM ? Diabetes mellitus due to underlying condition, uncontrolled, with stage 3 chronic kidney disease, with long-term current use of insulin On amaryl and sitagliptan Will start sliding scale option 1 coverage Follow accuchecks HgbA1c: >15 (Oct 2707/2018) ?? Carotid artery disease H/O of CABGx2 (DEBORAH-LAD, SVG-PDA ) in 2004 On ezetimibe, simvastatin, metoprolol, benazepril ?? Essential hypertension On metoprolol, norvasc, benazepril will titrate ?? GERD (gastroesophageal reflux disease) On nexium - protonix here ?? Hyperlipidemia On ezetimibe and simvastatin LDL 61 ?? Sleep apnea Should wears CPAP at home But not used for years Last sleep study in possible 2008 ?? Obesity Diet/exercise/weightloss discussed with patient ? SUBJECTIVE INTERVAL HPI: Feels not much better and still feels SOB. No fever, chills, cp nor palpitations. No events overnight. MEDICATIONS: Reviewed Current Facility-Administered Medications: cefepime 2 g in D5W 100 mL MB+ (MAXIPIME) 2 g INTRAVENOUS q 12 H Radha Adams) Thuestad 2 g at 12/25/17 0816 dextrose 40 % 15 g 15 g ORAL PRN Leandro Kauffman MD Or glucagon 1 mg injection (GLUCAGEN) 1 mg INTRAMUSCULAR PRN Leandro Kauffman MD Or dextrose 50% in water 25 mL syringe 12.5 g INTRAVENOUS PRN Leandro Kauffman MD nystatin 2 mL oral liquid (MYCOSTATIN) 200,000 Units ORAL QID Radha Adams) Thuestad 2 mL at 12/25/17 1241 simvastatin 40 mg tab(s) (ZOCOR) 40 mg ORAL AT BEDTIME Radhaebonie Adams) Thuestad 40 mg at 12/24/17 2128 gabapentin 600 mg cap(s) (NEURONTIN) 600 mg ORAL BID [place] Ebonie Adams) Thuestad 600 mg at 12/25/17 0813 ipratropium-albuterol 3 mL nebulizer solution (DUONEB) 3 mL INHALATION q 4 H while awake Radha Adams) Thuestad 3 mL at 12/25/17 1005 colchicine 0.6 mg tab(s) 0.6 mg ORAL DAILY [place] Ebonie Adams) Thuestad 0.6 mg at 12/25/17 0815 apixaban 5 mg tab(s) (ELIQUIS) 5 mg ORAL BID Radha Adams) Thuestad 5 mg at 12/25/17 0815 predniSONE 40 mg tab(s) (DELTASONE) 40 mg ORAL DAILY [place] Adams) Thuestad 40 mg at 12/25/17 0813 insulin lispro 10 Units injection (rapid acting) (HumaLOG) 10 Units SUBCUTANEOUS TID w MEALS Radha Adams) Thuestad 10 Units at 12/25/17 1241 insulin glargine 45 Units injection (long acting) (LANTUS) 45 Units SUBCUTANEOUS DAILY (8 AM) Radha Loomis Md Thuestad 45 Units at 12/25/17 0821 insulin glargine 30 Units injection (long acting) (LANTUS) 30 Units SUBCUTANEOUS AT BEDTIME Radha Adams) Thuestad 30 Units at 12/24/17 2129 guaiFENesin-dextromethorphan 100-10 mg/5 mL 5-10 mL oral liquid (ROBITUSSIN DM) 5-10 mL ORAL q 6 H PRN Radha Adams) Thuestad 10 mL at 12/25/17 0816 potassium chloride ER 10 mEq tab(s) (K-DUR, KLOR-CON) 10 mEq ORAL DAILY Radha Adams) Thuestad 10 mEq at 12/25/17 0814 spironolactone 25 mg tab(s) (ALDACTONE) 25 mg ORAL DAILY [place] Ebonie Adams) Thuestad 25 mg at 12/25/[address] 40 mg tab(s) (PROTONIX) 40 mg ORAL DAILY (6 AM) [place] Ebonie Adams) Thuestad 40 mg at 12/25/17 0604 isosorbide mononitrate ER 30 mg tab(s) (IMDUR) 30 mg ORAL DAILY [place] Ebonie Adams) Thuestad 30 mg at 12/25/17 0815 nitroglycerin sublingual 0.4 mg tab(s) (NITROQUICK) 0.4 mg SUBLINGUAL q 5 MIN PRN Radha Aadms) Thuestad 0.9% NaCl 3-5 mL 3-5 mL INTRAVENOUS q 12 H [place] Adams) Thuestad 5 mL at 12/25/17 0819 furosemide 40 mg injection (LASIX) 40 mg INTRAVENOUS DAILY Radha Adams) Thuestad 40 mg at 12/25/17 0816 benzonatate 100 mg cap(s) (TESSALON PERLE) 100 mg ORAL TID Hareesh Singam 100 mg at 12/25/17 1241 insulin lispro injection (rapid acting) (HumaLOG) SUBCUTANEOUS w MEALS Caroline (Audio Production Engineer) Garcia 2 Units at 12/25/17 1243 insulin lispro injection (rapid acting) (HumaLOG) SUBCUTANEOUS AT BEDTIME Caroline (Audio Production Engineer) Garcia OBJECTIVE PHYSICAL EXAM: BP 114/56 Pulse 69 Temp (Src) 97.5 (Oral) Resp 18 Ht 5' 8 (1.73m) Wt 222 lb 9.6 oz (101.0kg) SpO2 92% BMI 33.85 kg/(m2). GENERAL: Alert, no distress, cooperative, but still SOB SKIN: Skin color, texture, turgor normal. No rashes or lesions. EYES: PERRLA, EOMI OROPHARYNX: Lips, mucosa, and tongue normal. Teeth and gums normal. Oropharynx normal. NECK: No jugulovenous distention, No carotid bruits, Carotid pulse normal contour, Supple LUNGS: Lungs minimal rales. CARDIAC: Normal S1 and S2; no rubs, murmurs, or gallops ABDOMEN: Abdomen soft, non-tender, BS normal, No masses or organomegaly EXTREMITIES: Extremities normal, no deformities, edema, clubbing or skin discoloration. Good capillary refill., No ulcers NEURO: Reflexes normal and symmetric. Sensation grossly intact, Cranial nerves II-XII intact PULSES: 2+ radial, 2+ carotid DATA: Diagnostic tests reviewed for today's visit: Most recent labs CBC: WBC 14.62 12/25/2017 Hemoglobin 12.5 12/25/2017 Hematocrit 40.6 12/25/2017 Platelet Count 135 12/25/2017 CMP: Sodium 141 12/25/2017 Potassium 4.9 12/25/2017 BUN 62 12/25/2017 Creatinine 1.52 12/25/2017 Glucose 144 12/25/2017 Chloride 96 12/25/2017 CO2 Content, Venous 36 12/25/2017 VTE Prophylaxis: Patient is already anti-coagulated. Disposition: Home with [facility] Plan of care discussed with: Patient SIGNATURE: Radha Edmonds MD DATE: December 25, 2017 TIME: 1:28 PM Jennifer Sevilla RN, RN 12/25/2017 8:25 PM Signed Nursing Progress Note Patient Name: Luz Baca Patient Location: [facility] [id number] Daily Note: 1930 Resting in bed. States feels she is making only slight progress with breathing. Oxygen on 2 liters. Occasionally productive cough. Slight expiratory wheeze audible. This note was completed by: ALLYSON Schaffer MD 12/26/2017 10:27 PM Addendum BRIEF CONSULT NOTE SERVICE DATE: 12/26/2017 SERVICE TIME: 11:09 AM Patient seen and examined. Full note to follow. ASSESSMENT AND PLAN 1. Acute on chronic hypoxemic/hypercapnic respiratory failure 2. HCAP 3. COPD exacerbation 4. Acute diastolic heart failure (LVEF 50%) 5. HOCM- Status post septal myomectomy at the time of CABG 2003 6. CAD Status post CABG ?2, 07/18/04, VU to LAD, SVG to PDA; PCI ?6 RCA, 2014 PCI ?3 2015 Status post myocardial perfusion imaging stress test 08/11/17 with possible prior apical infarct and no ischemia, EF 50% 7. ICD 8. Bradycardia - this was transient and there is no evidence of pacemaker dysfunction on recent interrogation; her recent telemetry shows lower rate of 60 9. Chronic atrial fibrillation 10. Anticoagulated with apixaban 11. Obstructive sleep apnea Recommend: - continue diuresis with IV lasix and spironolactone - continue statin - continue apixaban for anticoagulation - resume aspirin due to multi-vessel PCI in the past She can follow up as an outpatient with Dr. Cardona on discharge SIGNATURE: Jose C Yeung MD PATIENT NAME: Luz Baca DATE: December 26, 2017 TIME: 11:09 AM PAGER: [phone] CONSULT: CARDIOLOGY SERVICE SERVICE DATE: 12/26/2017 CONSULTING PHYSICIAN: Jose C Yeung MD PCP: Jameson Kamara MD ATTENDING: Radha Adams) Kendal REASON FOR CONSULT: Shortness of Breath Subjective CHIEF COMPLAINT: Pulmonary infiltrate on chest x-ray [R91.8] HISTORY OF PRESENT ILLNESS: Ms. Baca is a 77 year old female who presents for respiratory failure, pneumonia, COPD, acute heart failure. She was recently admitted to [facility] and seen by Dr. Garcia. During that admission she was noted to have very transient bradycardia down to the 40's. On this admission again she was noted to have bradycardia to the 40's very transiently. Device was interrogated and showed that her lower rate was set at 60. No recent ventricular arrhythmias. She is known to have chronic AF. She is currently receiving bolus doses of lasix for diuresis for acute systolic heart failure and her shortness of breath is improving very slowly. PAST MEDICAL HISTORY Diagnosis Date - Arthritis - Atrial fibrillation (HCC) - CAD (coronary artery disease) stents x9, defibrillator, CABG. Seeing Dr. Cardona - Cardiac defibrillator in place - Cardiomegaly - Carotid artery disease (HCC) left - CKD (chronic kidney disease), stage IV ([facility]) - COPD (chronic obstructive pulmonary disease) ([facility]) Dr. Olbrych - Depression - Diabetes ([facility]) - Diabetic neuropathy ([facility]) - GERD (gastroesophageal reflux disease) - Gout - HH (hiatus hernia) - HOCM (hypertrophic obstructive cardiomyopathy) ([facility]) - HTN (hypertension) - Hyperlipidemia - Morbid obesity with BMI of 40.0-44.9, adult ([facility]) - Pacemaker - Pneumonia h/o pneumonia/bronchitis - Renal insufficiency 2003 post op - Sleep apnea 2011 not on CPAP, unable to tolerate mask 02/2017 - SVT (supraventricular tachycardia) ([facility]) NSVT and questionable VT in 2003 post op PAST SURGICAL HISTORY Procedure Laterality Date - PAST SURGICAL HISTORY OF 07/18/2004 Septal myectomy and CABG x2 (DEBORAH-LAD, SVG-PDA). - PAST SURGICAL HISTORY OF left breast nodule removed - PAST SURGICAL HISTORY OF hysterectomy - PAST SURGICAL HISTORY OF perianal abscess drained - PAST SURGICAL HISTORY OF cholecystectomy - PAST SURGICAL HISTORY OF skin lesions removed FAMILY HISTORY Problem Relation Age of Onset - Hypertension Mother living at age 93, HTN - Heart Failure Mother [place] - Cancer Father age 71, lung cancer Social History Substance Use Topics - Smoking status: Former Smoker Packs/day: 2.50 Years: 43.00 Types: Cigarettes Start date: 1961 Quit date: 07/07/2004 - Smokeless tobacco: Never Used - Alcohol use No Prior to Admission Medications Prescriptions Last Dose Informant Patient Reported? Taking? OXYGEN, HOME THERAPY, Unknown at Unknown time Yes Yes Sig: Inhale 2.5 L/min as instructed as directed. albuterol (PROVENTIL) 5 mg/mL nebu No No Sig: Inhale 0.5 mL as instructed one time only for 1 dose. 1 DOSE NOW - BACK OFFICE. PLACE 0.5 ML PER DROPPER AND 2.5 ML OF NORMAL SALINE INTO RESERVOIR. albuterol HFA (VENTOLIN HFA) 90 mcg/actuation inhaler 12/22/2017 at Unknown time No Yes Sig: Inhale 2 Puffs as instructed every 4 hours as needed. apixaban (ELIQUIS) 5 mg tab(s) 12/23/2017 at 0900 Yes Yes Sig: Take 5 mg by mouth twice daily. benzonatate (TESSALON PERLE) 100 mg capsule 12/23/2017 at 0900 Yes Yes Sig: Take 100 mg by mouth three times daily as needed. colchicine (COLCRYS) 0.6 mg tablet 12/23/2017 at 0900 Yes Yes Sig: Take 0.6 mg by mouth once daily. furosemide (LASIX) 40 mg tablet 12/23/2017 at 0900 Yes Yes Sig: Take 60 mg (1.5 tablets) by mouth every morning and 40 mg (1 tablet) every day around noon. gabapentin (NEURONTIN) 300 mg capsule No No Sig: Take 2 capsules by mouth three times daily for 30 days. Patient taking differently: Take 600 mg by mouth twice daily. gabapentin (NEURONTIN) 300 mg capsule No No Sig: Take 2 capsules by mouth twice daily for 90 days. guaiFENesin-dextromethorphan (ROBITUSSIN DM) 100-10 mg/5 mL syrup 12/23/2017 at 0900 No Yes Sig: Take 5-10 mL by mouth every 6 hours as needed for Cough. insulin aspart U-100 (NOVOLOG FLEXPEN U-100 INSULIN) 100 unit/mL in 12/23/2017 at 0900 Yes Yes Sig: Inject 15 Units subcutaneously three times daily with meals. insulin glargine (LANTUS SOLOSTAR U-100 INSULIN) 100 unit/mL (3 mL) inpn 12/23/2017 at 0900 Yes Yes Sig: Inject 60 Units subcutaneously every morning. insulin glargine (LANTUS SOLOSTAR U-100 INSULIN) 100 unit/mL (3 mL) in 12/22/2017 at 2200 Yes Yes Sig: Inject 40 Units subcutaneously daily at bedtime. ipratropium-albuterol (DUONEB) 0.5 mg-3 mg(2.5 mg base)/3 mL nebu 12/23/2017 at Unknown time No Yes Sig: Inhale 3 mL as instructed every 4 hours as needed. isosorbide mononitrate ER (IMDUR) 30 mg 24 hr tablet 12/23/2017 at 0900 Yes Yes Sig: Take 30 mg by mouth once daily. nitroglycerin sublingual (NITROQUICK) 0.4 mg SL tablet Unknown at Unknown time No Yes Sig: Dissolve 1 tablet under the tongue every 5 minutes as needed. nystatin (MYCOSTATIN) 100,000 unit/mL suspension 12/23/2017 at 0900 No Yes Sig: Take 2 mL by mouth four times daily for 7 days. SWISH AND SWALLOW 2 ML 4 TIMES PER DAY. pantoprazole DR (PROTONIX) 40 mg tablet 12/23/2017 at 0900 Yes Yes Sig: Take 40 mg by mouth once daily. potassium chloride ER (K-DUR, KLOR-CON) 10 mEq tablet No No Sig: TAKE ONE TABLET BY MOUTH DAILY WITH BREAKFAST predniSONE (DELTASONE) 10 mg tablet 12/23/2017 at 0900 Yes Yes Sig: Taper: 40mg PO daily x 3 days, 30mg PO daily x 3 days, 20mg PO daily x 3 days, 10mg PO daily x 3 days, then stop. simvastatin (ZOCOR) 40 mg tablet 12/23/2017 at 0900 Yes Yes Sig: Take 40 mg by mouth every morning. spironolactone (ALDACTONE) 25 mg tablet 12/23/2017 at 0900 No Yes Sig: Take 1 tablet by mouth once daily. Facility-Administered Medications: None Current hospital medications: cefepime 1 g in D5W 100 mL MB+ (MAXIPIME) 1 g INTRAVENOUS q 12 H aspirin, enteric coated 81 mg tab(s) (ASPIRIN, ENTERIC COATED) 81 mg ORAL DAILY [START ON 12/27/2017] predniSONE 20 mg tab(s) (DELTASONE) 20 mg ORAL DAILY dextrose 40 % 15 g 15 g ORAL PRN glucagon 1 mg injection (GLUCAGEN) 1 mg INTRAMUSCULAR PRN dextrose 50% in water 25 mL syringe 12.5 g INTRAVENOUS PRN nystatin 2 mL oral liquid (MYCOSTATIN) 200,000 Units ORAL QID simvastatin 40 mg tab(s) (ZOCOR) 40 mg ORAL AT BEDTIME gabapentin 600 mg cap(s) (NEURONTIN) 600 mg ORAL BID ipratropium-albuterol 3 mL nebulizer solution (DUONEB) 3 mL INHALATION q 4 H while awake colchicine 0.6 mg tab(s) 0.6 mg ORAL DAILY apixaban 5 mg tab(s) (ELIQUIS) 5 mg ORAL BID insulin lispro 10 Units injection (rapid acting) (HumaLOG) 10 Units SUBCUTANEOUS TID w MEALS insulin glargine 45 Units injection (long acting) (LANTUS) 45 Units SUBCUTANEOUS DAILY (8 AM) insulin glargine 30 Units injection (long acting) (LANTUS) 30 Units SUBCUTANEOUS AT BEDTIME guaiFENesin-dextromethorphan 100-10 mg/5 mL 5-10 mL oral liquid (ROBITUSSIN DM) 5-10 mL ORAL q 6 H PRN potassium chloride ER 10 mEq tab(s) (K-DUR, KLOR-CON) 10 mEq ORAL DAILY spironolactone 25 mg tab(s) (ALDACTONE) 25 mg ORAL DAILY pantoprazole DR 40 mg tab(s) (PROTONIX) 40 mg ORAL DAILY (6 AM) isosorbide mononitrate ER 30 mg tab(s) (IMDUR) 30 mg ORAL DAILY nitroglycerin sublingual 0.4 mg tab(s) (NITROQUICK) 0.4 mg SUBLINGUAL q 5 MIN PRN 0.9% NaCl 3-5 mL 3-5 mL INTRAVENOUS q 12 H furosemide 40 mg injection (LASIX) 40 mg INTRAVENOUS DAILY benzonatate 100 mg cap(s) (TESSALON PERLE) 100 mg ORAL TID insulin lispro injection (rapid acting) (HumaLOG) SUBCUTANEOUS w MEALS insulin lispro injection (rapid acting) (HumaLOG) SUBCUTANEOUS AT BEDTIME ALLERGIES Allergen Reactions - Bactrim [Sulfametho* Other: See Comments My throat swells up. - Latex Rash, Itching Itching and welts. No wheezing or shortness of breath. - Penicillins Rash, Itching Tolerated ceftriaxone during 11/2017 admission - Tetracycline Rash, GI Upset Emesis and diarrhea. - Atorvastatin Rash - Codeine Other: See Comments Numbness - Dilaudid [Hydromorp* Mental Status Change - Meperidine - Pentazocine - Pioglitazone Unknown - Propoxyphene CARDIAC STATUS: Chest Pain: Denies Dyspnea: Dyspnea at rest Ankle Edema: Pitting, +2 bilateral to knees Arrhythmia: Negative, Patient denies palpitations, lightheadedness, dizziness, syncope or near syncope. Functional Capacity: Average Activity includes Light activity REVIEW OF SYSTEMS: The following systems were reviewed with the patient, and are unremarkable other than as described below. SYSTEMIC: No fever, chills, or change in weight or appetite HEENT: No recent change in vision or hearing. CARDIOVASCULAR: No murmur, gallop. Denies chest pain or palpitations. GI: No recent nausea, vomiting or diarrhea. : No recent hematuria or dysuria. SKIN: No recent itching or eruption. PSYCH: No recent active anxiety or depression. HEMATOLOGY/ONCOLOGY: No recent diagnosis of bleeding or cancer. ENDOCRINE: No recent polyuria or heat intolerance. NEURO: No recent TIA, stroke or seizures. RHEUMATOLOGY: No recent active connective tissue disease. Objective PHYSICAL EXAM: Pleasant, comfortable, not in acute distress. Awake, alert, oriented times 3. Moves all extremities. SKIN: No rash or lumps. HEENT: Normocephalic, face symmetrical. NECK: Supple, no JVD, no carotid bruit, no thyromegaly. LUNGS: Positive findings: diminished breath sounds throughout CARDIAC: PMI present, RRR, S1 and S2, no S3 or S4, no additional heart sounds or murmurs. ABDOMEN: Soft, nontender, bowel sounds present. EXTREMITIES: Positive findings: Edema: 1+ pitting edema Bilateral knees, No ulcers PULSES: Peripheral pulses present. Body mass index is 33.85 kg/(m2). O2 Therapy: Nasal Cannula No Data Recorded Patient Vitals for the past 48 hrs: BP Temp Temp src Pulse Resp SpO2 12/26/17 2118 148/68 36.5 ?C (97.7 ?F) Oral 65 18 97 % 12/26/172044 - - - 68 18 - 12/26/172035 - - - 63 18 99 % 12/26/17 1557 114/54 36.6 ?C (97.9 ?F) Oral 64 18 95 % 12/26/17 1233 - - - 65 18 - 12/26/17 1223 - - - 65 18 90 % 12/26/17 1121 117/54 - - 64 18 98 % 12/26/17 0854 - - - - 18 - 12/26/17 0845 - - - 69 18 98 % 12/26/17 0744 129/54 36.4 ?C (97.5 ?F) Oral 64 18 99 % 12/26/17 0436 129/58 36.4 ?C (97.5 ?F) Oral 67 18 95 % 12/26/17 0042 111/55 36.5 ?C (97.7 ?F) Oral 60 18 98 % 12/25/17 2252 - - - 68 18 - 12/25/17 2245 - - - 65 18 - 12/25/17 2053 136/67 36.9 ?C (98.4 ?F) Oral 64 18 96 % 12/25/17 1843 - - - 72 18 - 12/25/17 1831 - - - 65 18 95 % 12/25/17 1553 129/70 36.4 ?C (97.5 ?F) Oral 63 18 93 % 12/25/17 1355 - - - 67 18 - 12/25/17 1342 - - - 79 18 92 % 12/25/17 1138 114/56 36.4 ?C (97.5 ?F) Oral 69 18 92 % 12/25/17 1023 - - - 64 18 - 12/25/17 1007 - - - 69 18 96 % 12/25/17 0732 138/68 37 ?C (98.6 ?F) Oral 64 18 93 % 12/25/17 0644 - - - 60 20 99 % 12/25/17 0637 - - - 63 20 96 % 12/25/17 0408 135/84 36.3 ?C (97.3 ?F) Oral 64 22 95 % 12/24/17 2352 130/53 36.4 ?C (97.5 ?F) Oral 63 18 96 % DATA: Diagnostic tests reviewed for today's visit: Most recent labs Most recent imaging Most recent EKG Past 72 Hour Labs: Recent Labs 12/26/17 0601 WBC 11.25* RBC 4.35 HB 12.9 HCT 42.0 MCV 96.6 MCH 29.7 MCHC 30.7 RDWCV 15.8* PLT 125* MPV 10.0 GLUC 438* BUN 72* CREAT 1.47* NA 131* K Unable to assay. Specimen significantly hemolyzed. CHLOR 92* CO2 24 CA 8.8 MG 2.5* Last Lab Drawn: TSH 1.300 2010 Triglyceride 137 05/17/2017 HDL Cholesterol 34 05/17/2017 LDL Cholesterol 84 05/17/2017 Cholesterol, Total 145 05/17/2017 Prior Cardiac Workup: echo 12/21/2017 CONCLUSIONS: - Technically difficult exam due to body habitus and COPD. - Exam indication: s/p myectomy - The left ventricle is normal in size. There is mild left ventricular hypertrophy. Left ventricular systolic function is mildly decreased. EF = 50 ? 5% (visual est.) Grade III left ventricular diastolic dysfunction. - The right ventricle is dilated. Right ventricular systolic function is mildly decreased. - The left atrial cavity is moderately dilated. - The right atrial cavity is dilated. - There is moderate (2+ - 3+) tricuspid valve regurgitation. - Estimated right ventricular systolic pressure is 78 mmHg consistent with moderately severe pulmonary hypertension. Estimated right atrial pressure is 10 mmHg. - Definity contrast could not be administered d/t unavailability of staff. - s/p myectomy: LVOT gradient at rest 6 mmHg, trivial-1+ MR. Patient unable to valsalva. - Exam was compared with the prior echocardiographic exam performed on 09/23/2010. LV function is normal on this study, and the patient appears to be in NSR (was in AF with RVR on prior study) ? ATURE: Jsoe C Yeung MD PATIENT NAME: Luz Baca DATE: December 26, 2017 TIME: 10:21 PM PAGER/CONTACT #: [phone] Previous Version Radha Edmonds MD 12/26/2017 3:18 PM Signed HOSPITAL MEDICINE PROGRESS NOTE Name: Luz Baca SERVICE DATE: 12/26/2017 SERVICE TIME: 3:13 PM LOCATION / ROOM: [place] [id number] Hospital Medicine/Primary Attending: Radha Edmonds MD NIGHT COVERAGE BETWEEN 5.30P-7.30A Page [phone] ASSESSMENT AND PLAN HCAP (healthcare-associated pneumonia) Feeling some better better today. - most likely have mucus plugs - started with IV Vanco and Aztreonam initially and now changed to Cefepime - sputum culture - duoneb q4hr + prn - Mucinex BID ?? Acute on chronic combined systolic and diastolic CHF (congestive heart failure) - most likely some fluid overload - Pro BNP 2600 - cont with fluid restriction - Cont lasix IV - Last Echo 12/21/2017 LVEF 50% with Grade 3 diastolic dysfunction - St Rob AICD / PM - minimal rate at 60 - nml function on check today. Result on chart. - negative 4.8 liter so far - consulted Dr. Yeung. ? Acute on chronic respiratory failure with hypoxia? - chronic home O2 with 2.5 l/min NC - supplement as needed - back to base line ? COPD with acute exacerbation? - Given on dose in ER with Solumedrol - cont with treatment as above - wean steroids slowly ? Atrial fibrillation - Not on any BB - Cont Eliquis - Rate controlled - on telemetry monitoring noticed to be low 40's in HR - PM/ICD check in AM ?? Diabetes mellitus due to underlying condition, uncontrolled, with stage 3 chronic kidney disease, with long-term current use of insulin On amaryl and sitagliptan Will start sliding scale option 1 coverage Follow accuchecks HgbA1c: >15 (Oct 2707/2018) ?? Carotid artery disease H/O of CABGx2 (DEBORAH-LAD, SVG-PDA ) in 2004 On ezetimibe, simvastatin, metoprolol, benazepril ?? Essential hypertension On metoprolol, norvasc, benazepril will titrate ?? GERD (gastroesophageal reflux disease) On nexium - protonix here ?? Hyperlipidemia On ezetimibe and simvastatin LDL 61 ?? Sleep apnea Should wears CPAP at home But not used for years Last sleep study in possible 2008 ?? Obesity Diet/exercise/weightloss discussed with patient ? SUBJECTIVE INTERVAL HPI: Feels Not much better, no fever, chills, cp nor palpitations. No events overnight MEDICATIONS: Reviewed Current Facility-Administered Medications: cefepime 1 g in D5W 100 mL MB+ (MAXIPIME) 1 g INTRAVENOUS q 12 H Radha Adams) Linkuesshantanu aspirin, enteric coated 81 mg tab(s) (ASPIRIN, ENTERIC COATED) 81 mg ORAL DAILY Jose C Yeung [START ON 12/27/2017] predniSONE 20 mg tab(s) (DELTASONE) 20 mg ORAL DAILY Radha Adams) Thuestad dextrose 40 % 15 g 15 g ORAL PRN Leandro Kauffman MD Or glucagon 1 mg injection (GLUCAGEN) 1 mg INTRAMUSCULAR PRN Leandro Kauffman MD Or dextrose 50% in water 25 mL syringe 12.5 g INTRAVENOUS PRN Leandro Kauffman MD nystatin 2 mL oral liquid (MYCOSTATIN) 200,000 Units ORAL QID Radha Adams) Thuestad 2 mL at 12/26/17 1220 simvastatin 40 mg tab(s) (ZOCOR) 40 mg ORAL AT BEDTIME Radha Adams) Thuestad 40 mg at 12/25/17 203 gabapentin 600 mg cap(s) (NEURONTIN) 600 mg ORAL BID Radha Adams) Thuestad 600 mg at 12/26/17 0811 ipratropium-albuterol 3 mL nebulizer solution (DUONEB) 3 mL INHALATION q 4 H while awake Radha Adams) Thuestad 3 mL at 12/26/17 1224 colchicine 0.6 mg tab(s) 0.6 mg ORAL DAILY [place] Ebonie Adams) Thuestad 0.6 mg at 12/26/17 0813 apixaban 5 mg tab(s) (ELIQUIS) 5 mg ORAL BID Radha Adams) Thuestad 5 mg at 12/26/17 0812 insulin lispro 10 Units injection (rapid acting) (HumaLOG) 10 Units SUBCUTANEOUS TID w MEALS Radhaebonie Adams) Thuestad 10 Units at 12/26/17 1221 insulin glargine 45 Units injection (long acting) (LANTUS) 45 Units SUBCUTANEOUS DAILY (8 AM) Radha Adams) Thuestad 45 Units at 12/26/17 0815 insulin glargine 30 Units injection (long acting) (LANTUS) 30 Units SUBCUTANEOUS AT BEDTIME Radha Adams) Thuestad 30 Units at 12/25/17 2040 guaiFENesin-dextromethorphan 100-10 mg/5 mL 5-10 mL oral liquid (ROBITUSSIN DM) 5-10 mL ORAL q 6 H PRN Radha Adams) Thuestad 10 mL at 12/26/17 0813 potassium chloride ER 10 mEq tab(s) (K-DUR, KLOR-CON) 10 mEq ORAL DAILY [place] Ebonie Aadms) Thuestad 10 mEq at 12/26/17 0811 spironolactone 25 mg tab(s) (ALDACTONE) 25 mg ORAL DAILY [place] Ebonie Adams) Thuestad 25 mg at 12/26/[address] 40 mg tab(s) (PROTONIX) 40 mg ORAL DAILY (6 AM) [place] Adams) Thuestad 40 mg at 12/26/17 0540 isosorbide mononitrate ER 30 mg tab(s) (IMDUR) 30 mg ORAL DAILY Radha Ebonie Adams) Thuestad 30 mg at 12/26/17 0811 nitroglycerin sublingual 0.4 mg tab(s) (NITROQUICK) 0.4 mg SUBLINGUAL q 5 MIN PRN Radha Adams) Thuestad 0.9% NaCl 3-5 mL 3-5 mL INTRAVENOUS q 12 H Radha Adams) Thuestad 3 mL at 12/26/17 0815 furosemide 40 mg injection (LASIX) 40 mg INTRAVENOUS DAILY Radha Adams) Thuestad 40 mg at 12/26/17 0812 benzonatate 100 mg cap(s) (TESSALON PERLE) 100 mg ORAL TID Hareesh Singam 100 mg at 12/26/17 1221 insulin lispro injection (rapid acting) (HumaLOG) SUBCUTANEOUS w MEALS Caroline (Audio Production Engineer) Garcia 2 Units at 12/26/17 1221 insulin lispro injection (rapid acting) (HumaLOG) SUBCUTANEOUS AT BEDTIME Caroline (Audio Production Engineer) Garcia 6 Units at 12/25/172041 OBJECTIVE PHYSICAL EXAM: BP 117/54 Pulse 65 Temp (Src) 97.5 (Oral) Resp 18 Ht 5' 8 (1.73m) Wt 222 lb 9.6 oz (101.0kg) SpO2 90% BMI 33.85 kg/(m2). GENERAL: Alert, no distress, cooperative, obese SKIN: Skin color, texture, turgor normal. No rashes or lesions. EYES: PERRLA, EOMI OROPHARYNX: Lips, mucosa, and tongue normal. Teeth and gums normal. Oropharynx normal. NECK: No jugulovenous distention, No carotid bruits, Carotid pulse normal contour, Supple LUNGS: Lungs clear to auscultation, Good diaphragmatic excursion CARDIAC: Normal S1 and S2; no rubs, murmurs, or gallops ABDOMEN: Abdomen soft, non-tender, BS normal, No masses or organomegaly EXTREMITIES: Extremities normal, no deformities, edema, clubbing or skin discoloration. Good capillary refill., No ulcers NEURO: Reflexes normal and symmetric. Sensation grossly intact, Cranial nerves II-XII intact PULSES: 2+ radial, 2+ carotid DATA: Diagnostic tests reviewed for today's visit: Most recent labs CBC: WBC 11.25 12/26/2017 Hemoglobin 12.9 12/26/2017 Hematocrit 42.0 12/26/2017 Platelet Count 125 12/26/2017 CMP: Sodium 131 12/26/2017 Potassium Unable to assay. Specimen significantly hemolyzed. 12/26/2017 BUN 72 12/26/2017 Creatinine 1.47 12/26/2017 Glucose 438 12/26/2017 Chloride 92 12/26/2017 CO2 Content, Venous 24 12/26/2017 VTE Prophylaxis: Patient is already anti-coagulated. Disposition: Home with [facility] Plan of care discussed with: Patient SIGNATURE: Radha Edmonds MD DATE: December 26, 2017 TIME: 3:13 PM Max Reynolds MD 12/28/2017 9:27 AM Signed [facility]- Consultation KEVEN LUZ Franco : 1940 AGE: 77 SEX: F ACCTNUM: [id number] [facility]: [facility] LOCATION: [id number] ATTENDING PHYSICIAN: PEYMAN GUERRERO DATE OF CONSULTATION: 12/27/2017 REFERRING PHYSICIAN: Peyman Guerrero M.D. REASON FOR CONSULTATION: Recurrent pneumonia. HISTORY: The patient is a 77-year-old female with a history of chronic respiratory failure, on 2-1/2 L of oxygen at home, who was recently admitted to [facility] from 12/10/2017 to 12/15/2017 when she had COPD exacerbation and there was concern of possible congestive heart failure as well and possible pneumonia. She was empirically given antibiotics and was discharged on oral antibiotics as well along with steroids. She presented back to the hospital with chest pain and shortness of breath which had been intermittent. She has had difficulty taking deep breaths in. Apparently with pushing on the chest it got worse. The pain was mostly in the midsternal area. She had productive cough with sometimes clear and sometimes benavides yellow phlegm. Upon admission, she was placed on empiric antibiotics. She had a chest x- ray, which showed opacity in the left lung base which was concerning for either atelectasis or consolidation, right basilar atelectasis was also noted. She does recall that she has choking episodes sometimes with liquids including water and also with some solid foods, but she has never had a swallow evaluation before. We have been asked to assist with further management. I did review her recent CT of the chest that was done on 12/10/2017, which showed nonspecific ground-glass airspace disease posterior right lower lobe. Currently, she denies any nausea, vomiting, diarrhea, dysuria, headaches, vision changes. Her white count which was elevated on admission appears to be improving with antibiotic therapy. PAST MEDICAL HISTORY: 1. Recent hospitalization for pneumonia and COPD exacerbation. 2. Atrial fibrillation. 3. Coronary artery disease. 4. Chronic kidney disease stage 4. 5. Severe COPD. 6. Chronic respiratory failure, on 2-1/2 liters of oxygen. 7. Diabetes type 2. 8. Diabetic neuropathy. 9. Gastroesophageal reflux disease. 10.Hypertrophic obstructive cardiomyopathy. 11.Obstructive sleep apnea. PAST SURGICAL HISTORY: 1. She has had a defibrillator placed. 2. Coronary artery bypass grafting. 3. Hysterectomy. 4. Perianal abscess drainage. 5. Cholecystectomy. ALLERGIES: She is listed allergic to penicillin, which causes rash and itching. Tetracycline causes emesis and diarrhea. Bactrim causes throat swelling. MEDICATIONS: Reviewed. FAMILY HISTORY: No infections. SOCIAL HISTORY: She lives at home with her daughter. Used to smoke but quit in 2003. No alcohol abuse. REVIEW OF SYSTEMS: Similar to history of present illness, negative unless otherwise stated PHYSICAL EXAM: She is currently afebrile. Vital signs are stable. She is on 2 L of oxygen. General appearance: She is alert, able to answer questions appropriately, intermittently coughing during exam. Head, eye, ENT: Pupils equal react to light. Oropharynx examination reveals no abnormality. Neck is supple. Lungs: Coarse breath sounds bilaterally. Occasional wheezing as well. Heart: Regular rate and rhythm. Abdomen: Soft, nontender, nondistended. Extremities: No edema. Skin: I did not notice any rash. Neurologically, no focal deficits. Musculoskeletal: No swollen joints. : No CVA tenderness. LABORATORY: White count is 11.6, which has improved from admission; hemoglobin 13; platelets 126, which were low on admission as well. BMP showed a creatinine of 1.56, which is stable. Blood sugars have been haywire since admission. Blood cultures from this admission are negative so far. Sputum culture showed normal respiratory mitra. MRSA nasal swab was negative. Imaging data reviewed. Results were as stated in HPI. IMPRESSION: 1. Bibasilar pneumonia, concern is for aspiration and gram- negative component due to her recent hospitalization. MRSA nasal swab is negative. 2. Leukocytosis, likely due to #1. 3. Acute on chronic respiratory failure, which is improved likely due to #1. 4. Severe COPD. 5. Multiple antibiotic allergies. 6. Thrombocytopenia, which appears to be chronic. 7. Chronic kidney disease stage 4. RECOMMENDATIONS: 1. Start meropenem IV. 2. Check modified barium swallow and consult Speech Therapy. 3. Follow her closely with you. 4. Discussed with the nursing staff and with the patient and her family. Max Reynolds M.D. Infectious Disease [id number] Eduardo Mccarty RD, LD 12/27/2017 9:53 AM Signed NUTRITION THERAPY PROGRESS NOTE SERVICE DATE: 12/27/2017 SERVICE TIME: 9:40 am NUTRITION CARE PLAN Intervention: Monitor intake.Eating 100% Reviewed physician progress notes and labs. Will follow up in 7 days or as consulted. Monitor and Evaluation: Goal: Meet >75% of estimated needs Discharge Nutrition Recommendations: Diet: Carbohydrate Controlled, Electrolyte Controlled 4 gm Na Interval History: HCAP (healthcare-associated pneumonia)-Feeling some better better today. Acute on chronic respiratory failure with hypoxia? Diabetes mellitus due to underlying condition, uncontrolled, with stage 3 chronic kidney disease, with long-term current use of insulin - chronic home O2 with 2.5 l/min NC - supplement as needed - back to base line Admission Weight: 101.6 kg (224 lb) Current Weight: 101 kg (222 lb 9.6 oz) Body mass index is 33.85 kg/(m2). class 2 obesity MNT Billing Type: Re-assess/15 min 1 unit SIGNATURE: Eduardo Mccarty RD, LD PATIENT NAME: Luz Baca DATE: December 27, 2017 TIME: 9:50 AM Evy Kilgore Pharmacist 12/27/2017 10:32 AM Signed MEDICATION RECONCILIATION Patient Name:Josephine Baca : 1940 Reconciliation: Yes All REGULATOR ASSEMBLER medications addressed by LIP Additional comments: N/A Allergies: ALLERGIES Allergen Reactions - Bactrim [Sulfametho* Other: See Comments My throat swells up. - Latex Rash, Itching Itching and welts. No wheezing or shortness of breath. - Penicillins Rash, Itching Tolerated ceftriaxone during 11/2017 admission - Tetracycline Rash, GI Upset Emesis and diarrhea. 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 12/23/2017 at 0900 Yes apixaban (ELIQUIS) 5 mg tab(s) Take 5 mg by mouth twice daily. 12/23/2017 at 0900 Yes furosemide (LASIX) 40 mg tablet Take 60 mg (1.5 tablets) by mouth every morning and 40 mg (1 tablet) every day around noon. 12/23/2017 at 0900 Yes insulin aspart U-100 (NOVOLOG FLEXPEN U-100 INSULIN) 100 unit/mL inpn Inject 15 Units subcutaneously three times daily with meals. 12/23/2017 at 0900 Yes insulin glargine (LANTUS SOLOSTAR U-100 INSULIN) 100 unit/mL (3 mL) inpn Inject 60 Units subcutaneously every morning. 12/23/2017 at 0900 Yes insulin glargine (LANTUS SOLOSTAR U-100 INSULIN) 100 unit/mL (3 mL) inpn Inject 40 Units subcutaneously daily at bedtime. 12/22/2017 at 2200 Yes isosorbide mononitrate ER (IMDUR) 30 mg 24 hr tablet Take 30 mg by mouth once daily. 12/23/2017 at [address] (PROTONIX) 40 mg tablet Take 40 mg by mouth once daily. 12/23/2017 at 0900 Yes simvastatin (ZOCOR) 40 mg tablet Take 40 mg by mouth every morning. 12/23/2017 at 0900 Yes benzonatate (TESSALON PERLE) 100 mg capsule Take 100 mg by mouth three times daily as needed. 12/23/2017 at 0900 Yes spironolactone (ALDACTONE) 25 mg tablet Take 1 tablet by mouth once daily. 12/23/2017 at 0900 Yes nystatin (MYCOSTATIN) 100,000 unit/mL suspension Take 2 mL by mouth four times daily for 7 days. SWISH AND SWALLOW 2 ML 4 TIMES PER DAY. 12/23/2017 at 0900 Yes ipratropium-albuterol (DUONEB) 0.5 mg-3 mg(2.5 mg base)/3 mL nebu Inhale 3 mL as instructed every 4 hours as needed. 12/23/2017 at Unknown time Yes guaiFENesin-dextromethorphan (ROBITUSSIN DM) 100-10 mg/5 mL syrup Take 5-10 mL by mouth every 6 hours as needed for Cough. 12/23/2017 at 0900 Yes nitroglycerin sublingual (NITROQUICK) 0.4 mg SL tablet Dissolve 1 tablet under the tongue every 5 minutes as needed. Unknown at Unknown time Yes albuterol HFA (VENTOLIN HFA) 90 mcg/actuation inhaler Inhale 2 Puffs as instructed every 4 hours as needed. 12/22/2017 at Unknown time Yes OXYGEN, HOME THERAPY, Inhale 2.5 L/min as instructed as directed. Unknown at Unknown time Yes gabapentin (NEURONTIN) 300 mg capsule Take 2 capsules by mouth twice daily for 90 days. potassium chloride ER (K-DUR, KLOR-CON) 10 mEq tablet TAKE ONE TABLET BY MOUTH DAILY WITH BREAKFAST Evy Kilgore, Pharmacist December 27, 2017 10:32 AM TAMELA Olson 12/27/2017 11:31 AM Signed CARE MANAGEMENT PROGRESS NOTE SERVICE DATE: 12/27/2017 SERVICE TIME: 11:20AM LOS: 4 days EMR reviewed and spoke with RN and MD. Cardiology now on consult. Received IV Lasix. Updated information sent to [facility]. Possible d/c today. CM continuing to follow. SIGNATURE: TAMELA Olson PATIENT NAME: Luz Baca DATE: December 27, 2017 TIME: 11:26 AM PAGER/CONTACT #: [phone] Peyman Guerrero MD 12/27/2017 1:50 PM Signed HOSPITAL MEDICINE PROGRESS NOTE Name: Luz Baca SERVICE DATE: 12/27/2017 SERVICE TIME: 1:40 PM LOCATION / [place] [facility] [id number] Hospital Medicine/Primary Attending: Peyman guerrero MD NIGHT COVERAGE BETWEEN 5.30P-7.30A Page [phone] ASSESSMENT AND PLAN HCAP (healthcare-associated pneumonia) Feeling some better today. - most likely have mucus plugs - started with IV Vanco and Aztreonam initially and changed to Cefepime - blood cx- no growth, sputum culture- Few Normal respiratory mitra present , negative nasal MRSA - duoneb q4hr + prn - Mucinex BID - consult ID due to recurrent admission/HCAP for antibiotic choice ?? Acute on chronic combined systolic and diastolic CHF (congestive heart failure) Acute diastolic heart failure (LVEF 50%) HOCM- Status post septal myomectomy at the time of CABG 2003 CAD Status post CABG ?2, 07/18/04, VU to LAD, SVG to PDA; PCI ?6 RCA, 2013 PCI ?3 2015 Status post myocardial perfusion imaging stress test 08/11/17 with possible prior apical infarct and no ischemia, EF 50%. ICD - most likely some fluid overload - Pro BNP 2600 - cont with fluid restriction - Last Echo 12/21/2017 LVEF 50% with Grade 3 diastolic dysfunction - [facility] AICD / PM - minimal rate at 60 - nml function on check today. Result on chart. - negative 4.8 liter so far - consulted Dr. Yeung. - continue diuresis with IV lasix and spironolactone - continue statin - continue apixaban for anticoagulation - resumed aspirin due to multi-vessel PCI in the past ? She can follow up as an outpatient with Dr. Cardona on discharge ? Acute on chronic respiratory failure with hypoxia? - chronic home O2 with 2.5 l/min NC - supplement as needed - back to base line ? COPD with acute exacerbation? - Given on dose in ER with Solumedrol - cont with treatment as above - wean steroids slowly ? Atrial fibrillation - Not on any BB - Cont Eliquis - Rate controlled - on telemetry monitoring noticed to be low 40's in HR - PM/ICD check in AM ?? Diabetes mellitus due to underlying condition, uncontrolled, with stage 3 chronic kidney disease, with long-term current use of insulin On amaryl and sitagliptan Will start sliding scale option 1 coverage Follow accuchecks HgbA1c: >15 (Oct 2707/2018) ?? Carotid artery disease H/O of CABGx2 (DEBORAH-LAD, SVG-PDA ) in 2003 On ezetimibe, simvastatin, metoprolol, benazepril ?? Essential hypertension On metoprolol, norvasc, benazepril will titrate ?? GERD (gastroesophageal reflux disease) On nexium - protonix here ?? Hyperlipidemia On ezetimibe and simvastatin LDL 61 ?? Sleep apnea Should wears CPAP at home But not used for years Last sleep study in possible 2008 ?? Obesity Diet/exercise/weightloss discussed with patient ? SUBJECTIVE INTERVAL HPI: Feels Not much better, no fever, chills, cp nor palpitations. No events overnight MEDICATIONS: Reviewed Current Facility-Administered Medications: cefepime 1 g in D5W 100 mL MB+ (MAXIPIME) 1 g INTRAVENOUS q 12 H Radha Adams) Thuestad 1 g at 12/27/17 0809 aspirin, enteric coated 81 mg tab(s) (ASPIRIN, ENTERIC COATED) 81 mg ORAL DAILY Jose C Yeung predniSONE 20 mg tab(s) (DELTASONE) 20 mg ORAL DAILY Radha Adams) Thuestad 20 mg at 12/27/17 0809 dextrose 40 % 15 g 15 g ORAL PRN Leandro Kauffman MD Or glucagon 1 mg injection (GLUCAGEN) 1 mg INTRAMUSCULAR PRN Leandro Kauffman MD Or dextrose 50% in water 25 mL syringe 12.5 g INTRAVENOUS PRN Leandro Kauffman MD nystatin 2 mL oral liquid (MYCOSTATIN) 200,000 Units ORAL QID Radha Adams) Thuestad 2 mL at 12/27/17 1305 simvastatin 40 mg tab(s) (ZOCOR) 40 mg ORAL AT BEDTIME Rdaha Adams) Thuestad 40 mg at 12/26/17 2041 gabapentin 600 mg cap(s) (NEURONTIN) 600 mg ORAL BID Radha Adams) Thuestad 600 mg at 12/27/17 0809 ipratropium-albuterol 3 mL nebulizer solution (DUONEB) 3 mL INHALATION q 4 H while awake Radha Adams) Thuestad 3 mL at 12/27/17 1018 colchicine 0.6 mg tab(s) 0.6 mg ORAL DAILY Radha Adams) Thuestad 0.6 mg at 12/27/17 0809 apixaban 5 mg tab(s) (ELIQUIS) 5 mg ORAL BID Radha Adams) Thuestad 5 mg at 12/27/17 0808 insulin lispro 10 Units injection (rapid acting) (HumaLOG) 10 Units SUBCUTANEOUS TID w MEALS Radha Adams) Thuestad 10 Units at 12/27/17 1305 insulin glargine 45 Units injection (long acting) (LANTUS) 45 Units SUBCUTANEOUS DAILY (8 AM) Radha Adams) Thuestad 45 Units at 12/27/17 0809 insulin glargine 30 Units injection (long acting) (LANTUS) 30 Units SUBCUTANEOUS AT BEDTIME Radha Adams) Thuestad 30 Units at 12/26/17 2041 guaiFENesin-dextromethorphan 100-10 mg/5 mL 5-10 mL oral liquid (ROBITUSSIN DM) 5-10 mL ORAL q 6 H PRN Radha Adams) Thuestad 10 mL at 12/26/17 0813 potassium chloride ER 10 mEq tab(s) (K-DUR, KLOR-CON) 10 mEq ORAL DAILY Radha Adams) Thuestad 10 mEq at 12/27/17 0809 spironolactone 25 mg tab(s) (ALDACTONE) 25 mg ORAL DAILY Radha Adams) Thuestad 25 mg at 12/27/[address] 40 mg tab(s) (PROTONIX) 40 mg ORAL DAILY (6 AM) Radha Adams) Thuestad 40 mg at 12/27/17 0508 isosorbide mononitrate ER 30 mg tab(s) (IMDUR) 30 mg ORAL DAILY Radha Adams) Thuestad 30 mg at 12/27/17 0808 nitroglycerin sublingual 0.4 mg tab(s) (NITROQUICK) 0.4 mg SUBLINGUAL q 5 MIN PRN Radha Adams) Thuestad 0.9% NaCl 3-5 mL 3-5 mL INTRAVENOUS q 12 H Radha Adams) Thuestad 5 mL at 12/27/17 0815 furosemide 40 mg injection (LASIX) 40 mg INTRAVENOUS DAILY Radha Adams) Thuestad 40 mg at 12/27/17 0809 benzonatate 100 mg cap(s) (TESSALON PERLE) 100 mg ORAL TID Hareesh Singam 100 mg at 12/27/17 1305 insulin lispro injection (rapid acting) (HumaLOG) SUBCUTANEOUS w MEALS Carloine (Audio Production Engineer) Garcia 2 Units at 12/27/17 1307 insulin lispro injection (rapid acting) (HumaLOG) SUBCUTANEOUS AT BEDTIME Caroline (Elías) Garcia 2 Units at 12/26/17 2042 OBJECTIVE PHYSICAL EXAM: BP 133/52 Pulse 67 Temp (Src) 97.7 (Oral) Resp 16 Ht 5' 8 (1.73m) Wt 228 lb 13.4 oz (103.8kg) SpO2 95% BMI 34.80 kg/(m2). GENERAL: Alert, no distress, cooperative, obese SKIN: Skin color, texture, turgor normal. No rashes or lesions. EYES: PERRLA, EOMI OROPHARYNX: Lips, mucosa, and tongue normal. Teeth and gums normal. Oropharynx normal. NECK: No jugulovenous distention, No carotid bruits, Carotid pulse normal contour, Supple LUNGS: Lungs clear to auscultation, Good diaphragmatic excursion CARDIAC: Normal S1 and S2; no rubs, murmurs, or gallops ABDOMEN: Abdomen soft, non-tender, BS normal, No masses or organomegaly EXTREMITIES: Extremities normal, no deformities, edema, clubbing or skin discoloration. Good capillary refill., No ulcers NEURO: Reflexes normal and symmetric. Sensation grossly intact, Cranial nerves II-XII intact PULSES: 2+ radial, 2+ carotid DATA: Diagnostic tests reviewed for today's visit: CBC, Coags, BMP, Mg, Phos Recent Labs 12/27/17 0600 12/26/17 0601 12/25/17 0556 WBC 11.68* 11.25* 14.62* HB 13.0 12.9 12.5 HCT 42.2 42.0 40.6 PLT 126* 125* 135* NA 137 131* 141 K 5.0 Unable to assay. Specimen significantly hemolyzed. 4.9 CHLOR 96* 92* 96* CO2 33* 24 36* BUN 70* 72* 62* CREAT 1.56* 1.47* 1.52* GLUC 235* 438* 144* CA 9.2 8.8 9.2 MG 2.5* 2.5* 2.3 VTE Prophylaxis: Patient is already anti-coagulated. Disposition: Home with [facility] Plan of care discussed with: Patient SIGNATURE: Radha Edmonds MD DATE: December 27, 2017 TIME: 1:50 PM AKUA MULLER, CONTACT LENS BLOCKER 12/27/2017 2:47 PM Signed Pharmacy Note Pneumonia Medication Education Patient Name:Josephine Baca Service Date: 12/27/2017 Service Time: 2:45 PM Pneumonia Education Provided: Brief overview of medication management for pneumonia and non pharmacological therapy options (drinking warm fluids, rest, avoiding cigarette smoke, health diet, avoiding heavy alcohol use and other people that are ill). Patient was provided with written and verbal instructions on the types and treatment of pneumonia and monitoring instructions at home Medication Education Provided: 1. Reason for taking medications and treatment goals. 2. Benefits of medication therapy. 3. Potential duration of therapy. 4. Importance of regularly filling prescriptions and taking medications. Patient was given opportunity to ask questions and receive answers. Current hospital medications: meropenem 1 g in D5W 100 mL MB+ (MERREM) 1 g INTRAVENOUS q 8 H aspirin, enteric coated 81 mg tab(s) (ASPIRIN, ENTERIC COATED) 81 mg ORAL DAILY predniSONE 20 mg tab(s) (DELTASONE) 20 mg ORAL DAILY dextrose 40 % 15 g 15 g ORAL PRN glucagon 1 mg injection (GLUCAGEN) 1 mg INTRAMUSCULAR PRN dextrose 50% in water 25 mL syringe 12.5 g INTRAVENOUS PRN nystatin 2 mL oral liquid (MYCOSTATIN) 200,000 Units ORAL QID simvastatin 40 mg tab(s) (ZOCOR) 40 mg ORAL AT BEDTIME gabapentin 600 mg cap(s) (NEURONTIN) 600 mg ORAL BID ipratropium-albuterol 3 mL nebulizer solution (DUONEB) 3 mL INHALATION q 4 H while awake colchicine 0.6 mg tab(s) 0.6 mg ORAL DAILY apixaban 5 mg tab(s) (ELIQUIS) 5 mg ORAL BID insulin lispro 10 Units injection (rapid acting) (HumaLOG) 10 Units SUBCUTANEOUS TID w MEALS insulin glargine 45 Units injection (long acting) (LANTUS) 45 Units SUBCUTANEOUS DAILY (8 AM) insulin glargine 30 Units injection (long acting) (LANTUS) 30 Units SUBCUTANEOUS AT BEDTIME guaiFENesin-dextromethorphan 100-10 mg/5 mL 5-10 mL oral liquid (ROBITUSSIN DM) 5-10 mL ORAL q 6 H PRN potassium chloride ER 10 mEq tab(s) (K-DUR, KLOR-CON) 10 mEq ORAL DAILY spironolactone 25 mg tab(s) (ALDACTONE) 25 mg ORAL DAILY pantoprazole DR 40 mg tab(s) (PROTONIX) 40 mg ORAL DAILY (6 AM) isosorbide mononitrate ER 30 mg tab(s) (IMDUR) 30 mg ORAL DAILY nitroglycerin sublingual 0.4 mg tab(s) (NITROQUICK) 0.4 mg SUBLINGUAL q 5 MIN PRN 0.9% NaCl 3-5 mL 3-5 mL INTRAVENOUS q 12 H furosemide 40 mg injection (LASIX) 40 mg INTRAVENOUS DAILY benzonatate 100 mg cap(s) (TESSALON PERLE) 100 mg ORAL TID insulin lispro injection (rapid acting) (HumaLOG) SUBCUTANEOUS w MEALS insulin lispro injection (rapid acting) (HumaLOG) SUBCUTANEOUS AT BEDTIME READINESS TO LEARN COGNITIVE ABILITY: Alert and oriented MOTIVATION TO LEARN: Eager FAMILY SUPPORT: High - Very involved in pt care INSTRUCTION PROVIDED TO: Patient and Daughter PATIENT LEARNS BEST BY: Unable to Assess FACTORS AFFECTING LEARNING: None PHYSICAL LIMITATIONS AFFECTING LEARNING: None LEARNING RESPONSE DIAGNOSIS: Pneumonia PATIENT/FAMILY RESPONSE: Verbalizes understanding of: The signs and symptoms of a worsening condition that warrant a call to the physician. The correct actions to take to manage symptoms associated with his/her disease/illness. The physical restrictions and recommendations after discharge from the hospital. Importance of completing all medications METHOD OF INSTRUCTION: Written instruction - handouts Verbal instruction FOLLOW-UP PLAN: Complete - Contact information given INSTRUCTIONAL AIDS USED: GUIDE TO PNEUMONIA HEALTH INFORMATION and PNEUMONIA ZONES HEALTH INFORMATION SIGNATURE: AKUA MULLER, CONTACT LENS BLOCKER PAGER: [phone] AKUA MULLER, CONTACT LENS BLOCKER 12/27/2017 2:49 PM Signed Heart Failure Education Note Patient Name:Josephine Baca Service Date: 12/27/2017 Service Time: 2:47 PM Heart Failure Education Provided: Patient was provided written and verbal instructions of heart failure management, activity as tolerated, signs and symptoms of heart failure/worsening heart failure, and to contact their physician if exhibits these symptoms. Instructed patient to contact his or her HF physician if his or her weight increases or decreases more than or equal to 4 lbs from dry weight. Medication Education Provided: 1. Reason for taking medications and treatment goals. 2. Benefits of medication therapy. 3. How medications work. 4. Importance of regularly filling prescriptions and taking medications. Patient was given opportunity to ask questions and receive answers. Current Inpatient Medications: Current hospital medications: meropenem 1 g in D5W 100 mL MB+ (MERREM) 1 g INTRAVENOUS q 8 H aspirin, enteric coated 81 mg tab(s) (ASPIRIN, ENTERIC COATED) 81 mg ORAL DAILY predniSONE 20 mg tab(s) (DELTASONE) 20 mg ORAL DAILY dextrose 40 % 15 g 15 g ORAL PRN glucagon 1 mg injection (GLUCAGEN) 1 mg INTRAMUSCULAR PRN dextrose 50% in water 25 mL syringe 12.5 g INTRAVENOUS PRN nystatin 2 mL oral liquid (MYCOSTATIN) 200,000 Units ORAL QID simvastatin 40 mg tab(s) (ZOCOR) 40 mg ORAL AT BEDTIME gabapentin 600 mg cap(s) (NEURONTIN) 600 mg ORAL BID ipratropium-albuterol 3 mL nebulizer solution (DUONEB) 3 mL INHALATION q 4 H while awake colchicine 0.6 mg tab(s) 0.6 mg ORAL DAILY apixaban 5 mg tab(s) (ELIQUIS) 5 mg ORAL BID insulin lispro 10 Units injection (rapid acting) (HumaLOG) 10 Units SUBCUTANEOUS TID w MEALS insulin glargine 45 Units injection (long acting) (LANTUS) 45 Units SUBCUTANEOUS DAILY (8 AM) insulin glargine 30 Units injection (long acting) (LANTUS) 30 Units SUBCUTANEOUS AT BEDTIME guaiFENesin-dextromethorphan 100-10 mg/5 mL 5-10 mL oral liquid (ROBITUSSIN DM) 5-10 mL ORAL q 6 H PRN potassium chloride ER 10 mEq tab(s) (K-DUR, KLOR-CON) 10 mEq ORAL DAILY spironolactone 25 mg tab(s) (ALDACTONE) 25 mg ORAL DAILY pantoprazole DR 40 mg tab(s) (PROTONIX) 40 mg ORAL DAILY (6 AM) isosorbide mononitrate ER 30 mg tab(s) (IMDUR) 30 mg ORAL DAILY nitroglycerin sublingual 0.4 mg tab(s) (NITROQUICK) 0.4 mg SUBLINGUAL q 5 MIN PRN 0.9% NaCl 3-5 mL 3-5 mL INTRAVENOUS q 12 H furosemide 40 mg injection (LASIX) 40 mg INTRAVENOUS DAILY benzonatate 100 mg cap(s) (TESSALON PERLE) 100 mg ORAL TID insulin lispro injection (rapid acting) (HumaLOG) SUBCUTANEOUS w MEALS insulin lispro injection (rapid acting) (HumaLOG) SUBCUTANEOUS AT BEDTIME READINESS TO LEARN COGNITIVE ABILITY: Alert and oriented MOTIVATION TO LEARN: Eager FAMILY SUPPORT: High - Very involved in pt care INSTRUCTION PROVIDED TO: Patient and Daughter PATIENT LEARNS BEST BY: Unable to Assess FACTORS AFFECTING LEARNING: None PHYSICAL LIMITATIONS AFFECTING LEARNING: None LEARNING RESPONSE DIAGNOSIS: Heart Failure PATIENT/FAMILY RESPONSE: Verbalizes understanding of: The signs and symptoms of a worsening condition that warrant a call to the physician. The correct actions to take to manage symptoms associated with his/her disease/illness. Fluid restrictions Diet / weight monitoring METHOD OF INSTRUCTION: Written instruction - handouts Verbal instruction FOLLOW-UP PLAN: Contact information given. INSTRUCTIONAL AIDS USED: Your Guide to Managing Heart Failure SUPPLEMENTAL MATERIAL PROVIDED: HF zones and HF patient education packet SIGNATURE: AKUA MULLER, CONTACT LENS BLOCKER PAGER: [phone] Max Reynolds MD 12/27/2017 3:17 PM Signed Consult Dictated. Please call with questions. Will follow with you. Thank you. Max Reynolds MD Pager: [phone] Date: 12/27/2017 Time: 3:17 PM Sofya De, RN, RN 12/28/2017 4:42 AM Signed Nursing Progress Note Patient Name: Luz Baca [place] [facility] [id number] Daily Note:0433- 6 beat run of vta, pt states she does feel a slight flutter in her chest and some mild nausea, call out to notify hospitalist Dr Wick no new orders. This note was completed by: Sofya De, ALLYSON Clay, ALLYSON, RN 12/28/2017 9:59 AM Addendum Nursing Progress Note Patient Name: Luz Baca [place] [facility] [id number] Daily Note: 0840- Pt glucose was 56. Gave OJ and isma crackers. Glucose up to 95. Held all insulin, left message for hospitalist. Waiting on return phone call [phone] with Cesar Richard. Alerted him that I held all insulin. No new orders for the pt. This note was completed by: Amarjit Clay RN Previous Version Elsy Lees, PT 12/28/2017 11:31 AM Signed Physical Therapy Evaluation SERVICE DATE: 12/28/2017 SERVICE TIME: 916 to 958 ROOM: [id number] Recommended Discharge Disposition: Home PT Recommended Discharge Disposition Comments: Patient would benefit from home PT for home safety assessment and to increase strength/safety/tolerance with functional progression Anticipated Discharge Needs: Physical Assist at Home;Supervision at Home Physical Assist at Home for: Cleaning;Laundry;Meals;Shopping;Transportation Supervision at Home due to: (initially for optimal safety) Recommended Discharge Equipment: No equipment needs anticipated PT Recommendations to Nursing: Ambulate with device;To bathroom;In halls;Transfer to/from chair;OOB for Meals;With assist of 1 person Device: Wheeled Walker (gait belt) PT 6 Clicks Score: 20 Precautions/Activity Restrictions: Fall Risk;Lines/Tubes/Drains Precaution/Activity Restriction Comments: standard precautions ASSESSMENT : Patient presents with general weakness, decreased activity tolerance with need for O2 per NC at baseline, decreased functional mobility/balance limiting ability to perform functional mobility without caregiver assist. Patient demonstrates mobility with SBA/CGA and mobility requires extended time. Requires skilled PT for increasing strength/safety/tolerance with functional progression. Tolerated Full Session Physical Therapy Problem List: Safety Deficits;Impaired Self Care;Decreased Activity Tolerance;Decreased Strength;Functional Mobility Impairment;Balance Impaired Patient /Caregiver Goals: Go Home Goals for Plan of Care: Able to perform HEP with: Modified Independent (w handout for fxnal LE strength x 20 reps) Transfer supine to/from sit with: Independent (to safely sit EOB without bed adjustments) Transfer sit to/from stand with: Stand By Assistance Ambulate with: Stand By Assistance Distance: 150 - 200 feet to safely navigate in home environment Device: Wheeled Walker Ambulate up and down steps with: Stand By Assistance Number of steps: 2 (to safely enter home) Device: (LRAD) Goal: Patient demonstrates fair+ to good balance with functional progression to decrease risk of falls Progress Toward Goals: Progressing as expected Rehab Potential: Good PLAN: Treatment Frequency (times per week): 4 Current admission Treatment Interventions: Education;Self Care / Home Management;Energy Conservation Training;Joint Mobility;Strengthening;Functional Mobility Training;Balance Training;Neuromuscular Re-education Plan of Care developed with: Patient TREATMENT INTERVENTIONS: Therapy Diagnosis: Reduced mobility-other Interventions Provided: Evaluation;Therapeutic Activity (96041);Gait Training (58151) $ Evaluation-Low (92610) Billed Units: 1 unit Therapeutic Activity (15520) Treatment Minutes: 15 1 unit Skilled Intervention(s): Instruction in stand to sit technique with lower extremities touching chair/bed and reaching back for surface Instruction in sit to and from stand technique with proper hand placement and body positioning at edge of bed/chair Education of benefit of mobility to prevent decline and work towards functional/home going goals, verbally reviewed exercises in sitting and supine and issued HEP sheets for performance at hospital to improve strength Education in use of call light to get up 100% Education in discharge recommendation and rationale Gait Training (46229) Treatment Minutes: 12 1 unit Skilled Intervention(s): Instruction in sequencing, gait pattern, Instruction in correction of gait deviations, Instruction in use of equipment, cues for sequence and pattern and cues for posture Education for adjusting walker height appropriately and rationale Education for continued recommendation for FWW for stability and improved activity tolerance Cues to amb inside device versus retro to device Cues for walker negotiation/sequencing with change of direction/negotiation around room obstacles and safe approach of sitting surface. Total Timed Code Treatment Minutes: 27 Total Treatment Time (minutes): 42 FUNCTIONAL G CODE: PT 6 Clicks Score: 20 (12/28/17916) $ Mobility: Walking and Moving Around Current Status (G8978): CJ (12/28/17916) $ Mobility: Walking and Moving Around Goal Status (G8979): CI (12/28/17916) Based on clinical assessment and the score on the 6 Clicks Functional Assessment Tool, the G code and corresponding severity modifiers are documented above. SUBJECTIVE: Current Hospital Course: Chart reviewed; Patient is a 77 year old female with history of arthritis, A fib, CAD, cardiomegaly, CAD, CKD, COPD, DM, diabetic neuropathy, GERD, gout, hiatal hernia, HTN, morbid obesity, pneumonia, pacemaker, renal insufficiency, sleep apnea. Patient with recent hospitalization for SOB/chest pain and admitted observation with no change in symptoms. Patient Report: Patient sitting EOB at approach and agreeable to PT, cleared by nursing for mobility. Denies lightheadedness/dizziness/nausea throughout. Patient reports happy to amb in umanzor/out of room. Patient reports that hospital bed broken with broken rails and springs sticking out - case management, Susan, notified and to approach patient regarding bed. Home Environment Patient Lives With: Family (daughter) Assistance Available: 24 Hour (assist provided by dtr/her fiance,grand dtr) Entry To Home: Stairs;Without Rail Number Of Stairs Into Home: 2 Number Of Stairs To Bed/Bath: 0 (first floor set up) Tub/Shower Type: tub/shower set up with grab bars Laundry: dtr does per laundromat Equipment Owned: Cane;Commode-Bedside;Grab Bars-Shower;Wheeled Walker;Home Oxygen;Other: See Comment (broken hospital bed) Prior Functional Level: Within Functional Limits;Required Assistance;History of Falls Assistance Required With: Cleaning;Laundry;Meals;Self Care;Shopping;Transportation Prior Functional Level Comments: One fall in last 6 month. Patient ind w amb short distances w FWW. Patient sleeps in hospital bed however hospital bed has springs that stick up. Daughter assists with getting her in/out of shower (stands to shower in tub), assists w bathing and dressing as patient needs. Patient is homebound except for MD appointments. Family completes all IADL's OBJECTIVE: Range Of Motion: Within Functional Limits Strength: Within Functional Limits Except Location Strength Not WFL: Hip Flexion;Hip Extension;Knee Flexion;Knee Extension;Ankle Dorsiflexion Left Hip Flexion Strength: 3+/5 Right Hip Flexion Strength: 4-/5 Left Hip Extension Strength: not tested Right Hip Extension Strength: not tested Left Knee Flexion Strength: 4-/5 Right Knee Flexion Strength: 4/5 Left Knee Extension Strength: 4-/5 Right Knee Extension Strength: 4/5 Left Ankle Dorsiflexion Strength: 4/5 Right Ankle Dorsiflexion Strength: 4+/5 CURRENT FUNCTIONAL STATUS: Current Functional Mobility Assist Level Additional Information Rolling Supine to Sit Other: See Comment (not tested, pt sitting EOB at approach) Sit to Supine Other: See Comment (not tested, pt set up at EOB post session) Scooting Stand By Assistance (in sitting, fwd/retro at EOB) Sit to Stand Contact Guard Assistance (from EOB with FWW) Stand to Sit Contact Guard Assistance (to EOB with FWW) Bed to Chair Toilet/Commode Gait Contact Guard Assistance Gait Device: Wheeled Walker Gait Distance (feet): 120 x 1 Stairs Curb Step Car Transfer Gait Deviations Right Lower Extremity: Heel strike during initial stance decreased;Push-off during terminal stance decreased;Step length decreased Gait Deviations Left Lower Extremity: Heel strike during initial stance decreased;Push-off during terminal stance decreased;Step length decreased General Gait Deviations: Jane decreased;Lateral sway increased;Step length decreased;Flexed trunk posture;Wide base of support;Difficulty changing direction/turning *Gait belt donned prior to OOB activity and ambulation Balance: Static Sitting;Dynamic Sitting;Static Standing;Dynamic Standing Static Sitting Balance: Independent Dynamic Sitting Balance: Supervision Static Standing Balance: Contact Guard Assistance Dynamic Standing Balance: Contact Guard Assistance Patient sitting edge of bed following PT session. Instructed patient to use call bear for assist with all OOB activity, patient verbalizes understanding. Tray table, call bear and personal belongings within reach. Nurse notified of patient status Please see discipline specific clinical documentation flowsheet for complete details for this therapy evaluation/treatment. SIGNATURE: Elsy Lees PT PATIENT NAME: Luz Baca DATE: December 28, 2017 TIME: 11:19 AM PAGER/CONTACT #: [phone] Gay Jack CCC-MILITARY NURSE, GALO/MILITARY NURSE 12/28/2017 2:42 PM Signed Speech Therapy MBSS Evaluation SERVICE DATE: 12/28/2017 SERVICE TIME: 1130 to 1200 ROOM: [place] [address] Nursing Recommendations: Reinforce use of swallowing strategies;Utilize bed in chair position Diet Recommendations: Regular Consistency;Thin liquids Swallowing Precautions Recommendations: Anti-Reflux precautions;Maintain an upright position 20-30 minutes following all oral intake;Sit upright 90 degrees for all PO;Self-monitoring;Double swallows;Alternate bites and sips;Small Bite/Sip;Extended time between presentations Recommended Consults: GI; May need to consider additional diagnostic information through an Esophagram Results and Recommendations Discussed With: Patient;Nurse Recommended Discharge Disposition: Unable to determine IMPRESSION: Patient demonstrates pharyngeal / esophageal phase dysphagia which is negatively impacting his/her ability to effectively maintain adequate nutrition and hydration and/or airway safety. Precaution/Activity Restriction Comments: standard precautions ASSESSMENT: Modified Barium Swallowing Exam completed this date reveals the following: -poor esophageal emptying while in an upright posture; Retrograde flow is noted below the level of the pharyngoesophageal segment -no occurrence of laryngeal penetration /aspiration is noted at this time. Tolerated Full Session Prior to the start of the procedure, a time out was taken to verbally confirm the identification of the patient utilizing but not limited to name and date of and to verify a Modified Barium Swallow is being conducted according to standard operating procedure. Instrumental Swallow Assessment Type: Modified Barium Swallow Study Modified Barium Swallow Views: Lateral position MBS Consistencies Tested: Thin Barium Liquids;Katherine Thick Barium Liquids;Puree With Barium Paste;Soft Solid With Barium Paste;Solid With Barium Paste Oral Phase: Lip Closure: No labial escape/anterior loss of bolus Tongue Control During Bolus Hold: Cohesive bolus between tongue to palatal seal Bolus Preparation/Mastication: Slow prolonged mastication with complete re-collection necessary Bolus Transport/Lingual Motion: Brisk tongue motion for A- P movement of the bolus Oral Residue: Trace residue lining oral structures Initiation Of Pharyngeal Swallow: Bolus head at posterior angle of ramus;Bolus head at vallecular pit Pharyngeal Phase: Soft Palate Elevation: No bolus between soft palate/pharyngeal wall Laryngeal Elevation: Complete superior movement of thyroid cartilage with contact of arytenoids to epiglottic petiole Anterior Hyoid Excursion: Complete anterior movement Epiglottic Movement: Complete inversion Laryngeal Vestibular Closure/Height of the Swallow: Complete - no air/contrast in laryngeal vestibule Pharyngeal Stripping Wave: Complete Pharyngoesophageal Segment Opening: Complete distension and complete duration/no obstruction of flow of bolus Tongue Base Retraction: Trace column of contrast or air between tongue base and pharyngeal wall Pharyngeal Residue: Trace residue within or on the pharyngeal structures Esophageal Clearance In An Upright Position: Esophageal retention;Esophageal retention with retrograde flow below the pharyngoesophageal segment Penetration/Aspiration Scale: 1-Material does not enter airway Goals for Plan of Care: Swallow Goals: -Patient will demonstrate adequate return of knowledge of all compensatory strategies/instruction to effectively assist the patient in immediate safety with oral intake and swallowing. Patient /Caregiver Goals: Eat/Drink Without Restrictions Rehab Potential: Good PLAN: Treatment Frequency (times per week): 3 Current admission Treatment Interventions: Dysphagia Management Plan of Care Developed with: Patient TREATMENT INTERVENTIONS: Therapy Diagnosis: Dysphagia, pharyngoesophageal phase Interventions Provided: Modified Barium Swallow Study (02245);Dysphagia Therapy (78683) $ Modified Barium Swallow Study (88260) Billed Units: 1 unit $ Dysphagia Therapy (72513) Billed Units: 1 unit Skilled Interventions: Instructed patient / caregiver on recommended compensatory strategies to maximize safety with oral intake while maintaining nutrition, hydration and medication stability. -Education regarding findings from today's Modified Barium Swallowing study (fluoroscopic study) and plans for treatment were provided to the patient / family / caregivers through verbal / written instruction, images and/or demonstration. Patient appeared to be able to demonstrate understanding of education provided this date. Total Treatment Time (minutes): 30 FUNCTIONAL G CODE: G Code Functional Limitations: Swallowing (12/28/17 1130) Swallow Current Status (G8996): CI (12/28/17 1130) Swallow Goal Status (G8997): CI (12/28/17 1130) Based on clinical assessment and the score on the Functional Communication Measure (FCM), the G code and corresponding severity modifiers are documented above. Physician signature certifies treatment plan of care established above for the period of 12/28/2017 through 01/11/2018. SUBJECTIVE: Current Hospital Course: Chart reviewed; -COPD with acute exacerbation -questioning possible aspiration -history of GERD Patient Report: I choke frequently on liquids and/or foods; I get a sticking sensation way up here at times' Please see discipline specific clinical documentation flowsheet for complete details for this therapy evaluation/treatment. SIGNATURE: Gay Jack CCC-MILITARY NURSE PATIENT NAME: Luz Baca DATE: December 28, 2017 TIME: 2:36 PM PAGER: [phone] Peyman Guerrero MD 12/28/2017 2:29 PM Signed HOSPITAL MEDICINE PROGRESS NOTE Name: Luz Baca SERVICE DATE: 12/28/2017 SERVICE TIME: 2:25 PM LOCATION / ROOM: [place] [id number] Hospital Medicine/Primary Attending: Peyman guerrero MD NIGHT COVERAGE BETWEEN 5.30P-7.30A Page [phone] ASSESSMENT AND PLAN HCAP (healthcare-associated pneumonia) Feels slowly improving, sob with activity - started with IV Vanco and Aztreonam initially and changed to Cefepime - blood cx- no growth, sputum culture- Few Normal respiratory mitra present , negative nasal MRSA - duoneb q4hr + prn - Mucinex BID - consulted ID due to recurrent admission/HCAP for antibiotic choice, changed to Meropenum IV - consulted speech therapy, suspicion of aspiration PNA, MBS done today, no significant findings on that ?? Acute on chronic combined systolic and diastolic CHF (congestive heart failure) Acute diastolic heart failure (LVEF 50%) HOCM- Status post septal myomectomy at the time of CABG 2003 CAD Status post CABG ?2, 07/18/04, VU to LAD, SVG to PDA; PCI ?6 RCA, 2013 PCI ?3 2014 Status post myocardial perfusion imaging stress test 08/11/17 with possible prior apical infarct and no ischemia, EF 50%. ICD - most likely some fluid overload - Pro BNP 2600 - cont with fluid restriction - Last Echo 12/21/2017 LVEF 50% with Grade 3 diastolic dysfunction - St Rob AICD / PM - minimal rate at 60 - nml function on check today. Result on chart. - negative 4.8 liter so far - consulted Dr. Yeung. - continue spironolactone - continue statin - continue apixaban for anticoagulation - resumed aspirin due to multi-vessel PCI in the past - change lasix to 40 mg po daily ? She can follow up as an outpatient with Dr. Cardona on discharge ? Acute on chronic respiratory failure with hypoxia? - chronic home O2 with 2.5 l/min NC - supplement as needed - back to base line ? COPD with acute exacerbation? - Given on dose in ER with Solumedrol - cont with treatment as above - wean steroids slowly ? Atrial fibrillation - Not on any BB - Cont Eliquis - Rate controlled - on telemetry monitoring noticed to be low 40's in HR - PM/ICD checked, normal function ?? Diabetes mellitus due to underlying condition, uncontrolled, with stage 3 chronic kidney disease, with long-term current use of insulin On amaryl and sitagliptan Will start sliding scale option 1 coverage Follow accuchecks HgbA1c: >15 (Oct 2707/2018) ?? Carotid artery disease H/O of CABGx2 (DEBORAH-LAD, SVG-PDA ) in 2004 On ezetimibe, simvastatin, metoprolol, benazepril ?? Essential hypertension On metoprolol, norvasc, benazepril will titrate ?? GERD (gastroesophageal reflux disease) On nexium - protonix here ?? Hyperlipidemia On ezetimibe and simvastatin LDL 61 ?? Sleep apnea Should wears CPAP at home But not used for years Last sleep study in possible 2008 ?? Obesity Diet/exercise/weightloss discussed with patient ? SUBJECTIVE INTERVAL HPI: Feels Not much better, no fever, chills, cp nor palpitations. No events overnight MEDICATIONS: Reviewed Current Facility-Administered Medications: meropenem 1 g in D5W 100 mL MB+ (MERREM) 1 g INTRAVENOUS q 12 H Max Rodolfo 1 g at 12/28/17 0839 aspirin, enteric coated 81 mg tab(s) (ASPIRIN, ENTERIC COATED) 81 mg ORAL DAILY Jose C Yeung 81 mg at 12/28/17 0836 predniSONE 20 mg tab(s) (DELTASONE) 20 mg ORAL DAILY Radha Adams) Thuestad 20 mg at 12/28/17 0835 dextrose 40 % 15 g 15 g ORAL PRN Leandro Kauffman MD Or glucagon 1 mg injection (GLUCAGEN) 1 mg INTRAMUSCULAR PRN Leandro Kauffman MD Or dextrose 50% in water 25 mL syringe 12.5 g INTRAVENOUS PRN Leandro Kauffman MD simvastatin 40 mg tab(s) (ZOCOR) 40 mg ORAL AT BEDTIME Radha Adams) Thuestad 40 mg at 12/27/17 2046 gabapentin 600 mg cap(s) (NEURONTIN) 600 mg ORAL BID Radha Adams) Thuestad 600 mg at 12/28/17 0834 ipratropium-albuterol 3 mL nebulizer solution (DUONEB) 3 mL INHALATION q 4 H while awake Radha Adams) Thuestad 3 mL at 12/28/17 1336 colchicine 0.6 mg tab(s) 0.6 mg ORAL DAILY Radha Adams) Thuestad 0.6 mg at 12/28/17 0836 apixaban 5 mg tab(s) (ELIQUIS) 5 mg ORAL BID Radha Adams) Thuestad 5 mg at 12/28/17 0835 insulin lispro 10 Units injection (rapid acting) (HumaLOG) 10 Units SUBCUTANEOUS TID w MEALS Radha Adams) Thuestad 10 Units at 12/28/17 1206 insulin glargine 45 Units injection (long acting) (LANTUS) 45 Units SUBCUTANEOUS DAILY (8 AM) Radha Adams) Thuestad 45 Units at 12/27/17 0809 insulin glargine 30 Units injection (long acting) (LANTUS) 30 Units SUBCUTANEOUS AT BEDTIME Radha Adams) Thuestad 30 Units at 12/27/17 2046 guaiFENesin-dextromethorphan 100-10 mg/5 mL 5-10 mL oral liquid (ROBITUSSIN DM) 5-10 mL ORAL q 6 H PRN Radha Adams) Thuestad 10 mL at 12/26/17 0813 potassium chloride ER 10 mEq tab(s) (K-DUR, KLOR-CON) 10 mEq ORAL DAILY Radha Adams) Thuestad 10 mEq at 12/28/17 0835 spironolactone 25 mg tab(s) (ALDACTONE) 25 mg ORAL DAILY Radha Adams) Thuestad 25 mg at 12/28/[address] 40 mg tab(s) (PROTONIX) 40 mg ORAL DAILY (6 AM) Radha Adams) Thuestad 40 mg at 12/28/17 0535 isosorbide mononitrate ER 30 mg tab(s) (IMDUR) 30 mg ORAL DAILY Radha Ebonie Adams) Thuestad 30 mg at 12/28/17 0836 nitroglycerin sublingual 0.4 mg tab(s) (NITROQUICK) 0.4 mg SUBLINGUAL q 5 MIN PRN Radha Loomis Md Thuestad 0.9% NaCl 3-5 mL 3-5 mL INTRAVENOUS q 12 H Radha A (Md) Thuestad 5 mL at 12/28/17 0838 furosemide 40 mg injection (LASIX) 40 mg INTRAVENOUS DAILY Radha Adams) Thuestad 40 mg at 12/28/17 0836 benzonatate 100 mg cap(s) (TESSALON PERLE) 100 mg ORAL TID Hareesh Singam 100 mg at 12/28/17 1205 insulin lispro injection (rapid acting) (HumaLOG) SUBCUTANEOUS w MEALS Caroline (Audio Production Engineer) Garcia 6 Units at 12/28/17 1206 insulin lispro injection (rapid acting) (HumaLOG) SUBCUTANEOUS AT BEDTIME Caroline (Audio Production Engineer) Garcia 2 Units at 12/26/17 204 OBJECTIVE PHYSICAL EXAM: BP 123/64 Pulse 64 Temp (Src) 97.8 (Oral) Resp 20 Ht 5' 8 (1.73m) Wt 232 lb 9.4 oz (105.5kg) SpO2 97% BMI 35.37 kg/(m2). GENERAL: Alert, no distress, cooperative, obese SKIN: Skin color, texture, turgor normal. No rashes or lesions. EYES: PERRLA, EOMI OROPHARYNX: Lips, mucosa, and tongue normal. Teeth and gums normal. Oropharynx normal. NECK: No jugulovenous distention, No carotid bruits, Carotid pulse normal contour, Supple LUNGS: Lungs clear to auscultation, Good diaphragmatic excursion CARDIAC: Normal S1 and S2; no rubs, murmurs, or gallops ABDOMEN: Abdomen soft, non-tender, BS normal, No masses or organomegaly EXTREMITIES: Extremities normal, no deformities, edema, clubbing or skin discoloration. Good capillary refill., No ulcers NEURO: Reflexes normal and symmetric. Sensation grossly intact, Cranial nerves II-XII intact PULSES: 2+ radial, 2+ carotid DATA: Diagnostic tests reviewed for today's visit: CBC, Coags, BMP, Mg, Phos Recent Labs 12/28/17 0309 12/27/17 0600 12/26/17 0601 WBC 9.78 11.68* 11.25* HB 12.8 13.0 12.9 HCT 42.0 42.2 42.0 PLT 112* 126* 125* NA 141 137 131* K 5.1 5.0 Unable to assay. Specimen significantly hemolyzed. CHLOR 99 96* 92* CO2 35* 33* 24 BUN 70* 70* 72* CREAT 1.61* 1.56* 1.47* GLUC 161* 235* 438* CA 9.2 9.2 8.8 MG 2.7* 2.5* 2.5* VTE Prophylaxis: Patient is already anti-coagulated. Disposition: Home with [facility] PT Plan of care discussed with: Patient, RN and daughter SIGNATURE: Peyman guerrero MD DATE: December 28, 2017 TIME: 2:29 PM aMx Reynolds MD 12/28/2017 3:38 PM Signed INFECTIOUS DISEASE PROGRESS NOTE Patient Name: Luz aBca Date: 12/28/2017 ASSESSMENT: 1. Bibasilar pneumonia, concern is for aspiration and gram- negative component due to her recent hospitalization. MRSA nasal swab is negative. 2. Leukocytosis, likely due to #1. 3. Acute on chronic respiratory failure, which is improved likely due to #1. 4. Severe COPD. 5. Multiple antibiotic allergies. 6. Thrombocytopenia, which appears to be chronic. 7. Chronic kidney disease stage 4 8. Suspected pharyngeal and esophageal phase dysphagia PLAN: Continue meropenem Order esophagogram Follow clinically INTERVAL HISTORY: ROS done with pt/RN and negative unless stated. Reviewed modified barium swallow, speech therapy notes - 'pharyngeal / esophageal phase dysphagia'. No fevers chills nausea vomiting diarrhea. Still cough and shortness of breath. MEDICATIONS: reviewed. Current hospital medications: meropenem 1 g in D5W 100 mL MB+ (MERREM) 1 g INTRAVENOUS q 12 H aspirin, enteric coated 81 mg tab(s) (ASPIRIN, ENTERIC COATED) 81 mg ORAL DAILY predniSONE 20 mg tab(s) (DELTASONE) 20 mg ORAL DAILY dextrose 40 % 15 g 15 g ORAL PRN glucagon 1 mg injection (GLUCAGEN) 1 mg INTRAMUSCULAR PRN dextrose 50% in water 25 mL syringe 12.5 g INTRAVENOUS PRN simvastatin 40 mg tab(s) (ZOCOR) 40 mg ORAL AT BEDTIME gabapentin 600 mg cap(s) (NEURONTIN) 600 mg ORAL BID ipratropium-albuterol 3 mL nebulizer solution (DUONEB) 3 mL INHALATION q 4 H while awake colchicine 0.6 mg tab(s) 0.6 mg ORAL DAILY apixaban 5 mg tab(s) (ELIQUIS) 5 mg ORAL BID insulin lispro 10 Units injection (rapid acting) (HumaLOG) 10 Units SUBCUTANEOUS TID w MEALS insulin glargine 45 Units injection (long acting) (LANTUS) 45 Units SUBCUTANEOUS DAILY (8 AM) insulin glargine 30 Units injection (long acting) (LANTUS) 30 Units SUBCUTANEOUS AT BEDTIME guaiFENesin-dextromethorphan 100-10 mg/5 mL 5-10 mL oral liquid (ROBITUSSIN DM) 5-10 mL ORAL q 6 H PRN potassium chloride ER 10 mEq tab(s) (K-DUR, KLOR-CON) 10 mEq ORAL DAILY spironolactone 25 mg tab(s) (ALDACTONE) 25 mg ORAL DAILY pantoprazole DR 40 mg tab(s) (PROTONIX) 40 mg ORAL DAILY (6 AM) isosorbide mononitrate ER 30 mg tab(s) (IMDUR) 30 mg ORAL DAILY nitroglycerin sublingual 0.4 mg tab(s) (NITROQUICK) 0.4 mg SUBLINGUAL q 5 MIN PRN 0.9% NaCl 3-5 mL 3-5 mL INTRAVENOUS q 12 H furosemide 40 mg injection (LASIX) 40 mg INTRAVENOUS DAILY benzonatate 100 mg cap(s) (TESSALON PERLE) 100 mg ORAL TID insulin lispro injection (rapid acting) (HumaLOG) SUBCUTANEOUS w MEALS insulin lispro injection (rapid acting) (HumaLOG) SUBCUTANEOUS AT BEDTIME PHYSICAL EXAM: Vital signs: BP 123/64 Pulse 64 Temp 36.6 ?C (97.8 ?F) (Oral) Resp 20 Ht 172.7 cm (5' 8) Wt 105.5 kg (232 lb 9.4 oz) SpO2 97% BMI 35.36 kg/m2 Temp (24hrs), Av.4 ?C (97.6 ?F), Min:36.3 ?C (97.3 ?F), Max:36.7 ?C (98.1 ?F) General: alert, oriented, NAD Lungs: bilaterally Coarse breath sounds and occasional wheezing Heart: regular rate and rhythm Abdomen: soft, non tender, non distended, BS+ Extremities: no swollen joints Skin: no rash IV sites - wnl Lab data: reviewed Recent Labs 12/28/17 0309 12/27/17 0600 12/26/17 0601 WBC 9.78 11.68* 11.25* HB 12.8 13.0 12.9 PLT 112* 126* 125* NA 141 137 131* K 5.1 5.0 Unable to assay. Specimen significantly hemolyzed. CO2 35* 33* 24 BUN 70* 70* 72* CREAT 1.61* 1.56* 1.47* Microbiology data: reviewed Imaging data: reviewed Max Reynolds MD Pager: Shakila Busch OT/[place] 12/29/2017 5:49 AM Addendum Occupational Therapy Evaluation SERVICE DATE: 12/28/2017 SERVICE TIME: 1320 to 1416 (split session for RT; 2362-3169, [id number]) ROOM: [place] [address] Recommended Discharge Disposition: Home OT Recommended Discharge Disposition Comments: To assess safety in home environment and to increase safety and independence during ADLs and functional mobility as pt reports of recent falls Anticipated Discharge Needs: Physical Assist at Home;Supervision at Home;Equipment Physical Assist at Home for: Transportation;Shopping;Self Care;Meals;Laundry;Cleaning Supervision at Home due to: Decreased safety awareness Recommended Discharge Equipment: Shower Chair;Sock Aide OT Recommendations to Nursing: To Bathroom for ADL?s /and or Toileting;ADL?s in chair;OOB for meals;Edge of bed ADL?s;With assist of 1 person;Transfer to Chair Equipment: Wheeled Walker (gait belt) OT 6 Clicks Score: 23 Precautions/Activity Restrictions: Diabetic;Diet Restrictions;Fluid Restrictions;Fall Risk;Lines/Tubes/Drains Precaution/Activity Restriction Comments: standard precautions ASSESSMENT: Tolerated Full Session Pt presents with impaired functional mobility, ADL performance, strength and functional activity tolerance (with c/o fatigue), impacting her ability to function without assist from caregivers. Requires verbal cues and repetitive practice for safety with wheeled walker during functional transfers/mobility, however, demonstrates good carryover. Pt requires Supervision- CGA for functional transfers/mobility, standing grooming at sink, lower body dressing with adaptive equipment and toileting. Pt verbalizes good understanding of energy conservation techniques. Pt would benefit from a Home OT assessment due to pt report of recent falls and to further increase safety and independence during ADLs and functional mobility in the home environment. Pt has met all inpatient OT goals and denies questions/concerns for home going, therefore, pt to be discharged from OT services at this time. Occupational Therapy Problem List: Safety Deficits;Decreased Strength;Impaired Self Care Patient /Caregiver Goals: Go Home Goals for Plan of Care: Grooming with: Supervision (at sink) Lower Body Dressing with: Stand By Assistance Chair Transfer with: Stand By Assistance Toilet Transfer with: Stand By Assistance Demonstrate Competence With Education with: (pt will verbalize good understanding of ECWS techniques) Progress Toward Goals: Progressing as expected- all goals MET Rehab Potential: Good PLAN: Treatment Frequency (times per week): Discontinue Therapy Services Reasons Therapy Services Discontinued: Goals met Current admission Treatment Interventions: Education;Self Care / Home Management;Energy Conservation Training;Functional Mobility Training Plan of Care developed with: Patient TREATMENT INTERVENTIONS: Interventions Provided: Evaluation;Therapeutic Activity (50586);Self Retirement Management (99187) $ Evaluation-Low (33029) Billed Units: 1 unit Therapeutic Activity (64186) Treatment Minutes: 9 1 unit Skilled Intervention(s): Instructed, verbally/visually cued and facilitated pt in sit to stand technique with proper hand placement and body positioning at edge of bed. Pt further instructed in safe technique with proper hand placement, as pt continued to pull up on walker handle with one hand. Pt instructed and verbally cued in staying within frame of walker, O2 line management and safe/proper way to navigate around obstacles during functional mobility to bathroom, sink and bed. Pt educated in importance of bringing walker back to toilet in bathroom, as pt attempts to abandon walker. Instructed, verbally/visually cued and facilitated in stand to sit technique with lower extremities touching bed and reaching back for surface. Pt further educated in safe technique for stand to sit transfer with proper hand placement due to pt holding onto walker handles during first sit to stand. Self Retirement Management (37595) Treatment Minutes: 15 1 unit Skilled Intervention(s): Pt educated in role of OT. Pt educated in importance of out of bed activity (active participation in daily care, sitting in chair for meals and throughout day if asymptomatic) for rehabilitation and to prevent functional decline. Provided instruction and verbal cues to don sock with use of sock aide while seated EOB, as pt reports of difficulty at home and desire to increase independence with task. Provided facilitation in O2 line management during standing toilet clothing management. Pt instructed and verbally cued on hand placement on sink counter for balance support during standing ADL task. Pt educated on benefits of bringing walker up to counter surface, as pt abandons walker upon approach of sink, despite initial verbal cues. Pt educated in EnergyConservation Techniques: Sitting versus standing for bathing/dressing, useof long handled adaptive equipment, pacing, frequent rest breaks, prioritizing/planning, placement of items within reach to reduce need to reach/bend. Pt provided with Energy Conservation Techniques handout. Pt educated on benefits of use of shower chair at home to reduce risk of falls and for energy conservation.Pt educated on ways to obtain recommended equipment. Vitals monitored throughout session to ensure safe progression of functional activities. Pt educated in safe technique for how to get up after a fall, given pt's report of recent fall history at home. Pt educated in importance of use of call button for all needs and to call and wait for nursing/therapist assistance for all out of bed/chair activity. Education in OT POC and discharge recommendation with rationale. Total Timed Code Treatment Minutes: 24 Total Treatment Time (minutes): 45 FUNCTIONAL G CODE: OT 6 Clicks Score: 23 (12/28/17 1320) Self Care Current Status (G8987): CI (12/28/17 1320) Self Care Goal Status (G8988): CI (12/28/17 1320) Self Care Discharge Status (G8989): CI (12/28/17 1320) Based on clinical assessment and the score on the 6 Clicks Functional Assessment Tool, the G code and corresponding severity modifiers are documented above. SUBJECTIVE: Current Hospital Course: Chart reviewed; Patient is a 77 year old with a recent hospitalization for SOB/chest pain and admitted observation with no change in symptoms. PMH: arthritis, A fib, CAD, cardiomegaly, CAD, CKD, COPD, DM, diabetic neuropathy, GERD, gout, hiatal hernia, HTN, morbid obesity, pneumonia, pacemaker, renal insufficiency, sleep apnea. Patient Report: Patient sitting EOB upon OT arrival. I'm just so tired. Home Environment Patient Lives With: Family (daughter) Assistance Available: 24 Hour (assist provided by dtr/her fiance,grand dtr) Entry To Home: Stairs;Without Rail Number Of Stairs Into Home: 2 Number Of Stairs To Bed/Bath: 0 (first floor set up) Tub/Shower Type: tub/shower set up with grab bars Laundry: dtr does per laundromat Equipment Owned: Cane;Commode-Bedside;Grab Bars-Shower;Wheeled Walker;Home Oxygen;Other: See Comment (broken hospital bed) Prior Functional Level: Within Functional Limits;Required Assistance;History of Falls Assistance Required With: Cleaning;Laundry;Meals;Self Care;Shopping;Transportation Prior Functional Level Comments: One fall in last 6 month. Patient ind w amb short distances w FWW. Patient sleeps in hospital bed however hospital bed has springs that stick up. Daughter assists with getting her in/out of shower (stands to shower in tub), assists w bathing and dressing as patient needs. Patient is homebound except for MD appointments. Family completes all IADL's OBJECTIVE: Responsiveness: Alert;Awake Follows Commands: Cueing Needed Cueing to Follow Commands: Minimum (to moderate) Vision Deficits: Wears glasses (for reading) CURRENT FUNCTIONAL STATUS: Current Activities of Daily Living Assist Level Feeding Independent (per clinical judgment) Grooming Supervision (hand hygiene at sink) Bathing Upper Body Set Up (per clinical judgment seated) Bathing Lower Body Minimal Assistance (per clinical judgment seated) Dressing Upper Body Modified Independent (per clinical judgment seated) Dressing Lower Body Supervision (to don L sock using sock aid, doff sock seated on EOB ); anticipate SBA pants/underwear during standing portion of task Toileting Stand By Assistance (for clothing mgt, MOD I for seated toilet hygiene ) Functional Mobility Assist Level Rolling Supine to Sit Sit to Supine Scooting Sit to Stand Contact Guard Assistance (from bed to walker level; SBA 2nd trial) Stand to Sit Contact Guard Assistance (from walker level to bed; SBA 2nd trial) Bed to Chair Toilet/Commode Stand By Assistance (to supervision, bathroom toilet with use of L grab bar) Functional Mobility Contact Guard Assistance (to SBA) Wheeled Walker -Gait belt used during functional mobility and transfers for optimal safety Hand Dominance: Right Range Of Motion: Within Functional Limits Strength: Within Functional Limits Except Location Strength Not WFL: Upper Extremity Left Upper Extremity Strength: grossly 4/5 Right Upper Extremity Strength: grossly 4/5 Balance: Static Sitting;Dynamic Sitting;Static Standing;Dynamic Standing Static Sitting Balance: Independent Dynamic Sitting Balance: Independent Static Standing Balance: Supervision Dynamic Standing Balance: Supervision Activity Tolerance: Standing Activity Standing Activity: functional mobility to from bathroom, standing grooming at sink Standing Activity Tolerance (in minutes): (Pt reports of fatigue) Vital Signs Pre Assessment: O2 Equipment Pre O2 Equipment: Nasal Cannula Pre Oxygen Requirement: 2L/min Intra Assessment 1: Heart Rate Intra 1, SpO2 Intra 1 Intra Heart Rate 1: 82 Intra SpO2 1: 98 Intra Assessment 2: Heart Rate Intra 2, SpO2 Intra 2 Intra Heart Rate 2: 85 Intra SpO2 2: 99 Please see discipline specific clinical documentation flowsheet for complete details for this therapy evaluation/treatment. Pt and nursing agreeable to OT services. At end of session, pt sitting EOB. Lines/tubes/drains intact include: O2. Tray table and call light within reach. Nursing (RN, CM) notified of current pt status. SIGNATURE: Shakila Busch OT/L PATIENT NAME: Luz Baca DATE: December 28, 2017 TIME: 4:18 PM PAGER: [phone] Previous Version Peyman Guerrero MD 12/29/2017 11:37 AM [facility] MEDICINE PROGRESS NOTE Name: Luz Baca SERVICE DATE: 12/29/2017 SERVICE TIME: 11:29 AM LOCATION / ROOM: [place] [id number] Medicine/Primary Attending: Peyman guerrero MD NIGHT COVERAGE BETWEEN 5.30P-7.30A Page [phone] ASSESSMENT AND PLAN HCAP (healthcare-associated pneumonia), suspected aspiration PNA with episodes of choking food/liquids Feels slowly improving, c/o mild sob with activity - started with IV Vanco and Aztreonam initially and changed to Cefepime later - blood cx- no growth, sputum culture- Few Normal respiratory mitra present , negative nasal MRSA - consulted ID due to recurrent admission/HCAP for antibiotic choice, changed to Meropenum IV - consulted speech therapy, suspicion of aspiration PNA - MBS done - poor esophageal emptying while in an upright posture; Retrograde flow is noted below the level of the pharyngoesophageal segment. no occurrence of laryngeal penetration /aspiration is noted at this time. - consult GI; Will get an Esophagogram - duoneb q4hr + prn - Mucinex BID - aspiration precautions - Nursing Recommendations: Reinforce use of swallowing strategies;Utilize bed in chair position - Diet Recommendations: Regular Consistency;Thin liquids Acute on chronic combined systolic and diastolic CHF (congestive heart failure) Acute diastolic heart failure (LVEF 50%) HOCM- Status post septal myomectomy at the time of CABG 2003 CAD Status post CABG ?2, 07/18/04, VU to LAD, SVG to PDA; PCI ?6 RCA, 2014 PCI ?3 2015 Status post myocardial perfusion imaging stress test 08/11/17 with possible prior apical infarct and no ischemia, EF 50%. ICD - most likely some fluid overload - Pro BNP 2600 - cont with fluid restriction - Last Echo 12/21/2017 LVEF 50% with Grade 3 diastolic dysfunction - St Rob AICD / PM - minimal rate at 60 - nml function on check today. Result on chart. - negative 4.8 liter so far - consulted Dr. Yeung. - continue spironolactone - continue statin - continue apixaban for anticoagulation - resumed aspirin due to multi-vessel PCI in the past - change lasix to 40 mg po daily ? She can follow up as an outpatient with Dr. Cardona on discharge ? Acute on chronic respiratory failure with hypoxia? - chronic home O2 with 2.5 l/min NC - supplement as needed - back to base line ? COPD with acute exacerbation? - Given on dose in ER with Solumedrol - cont with treatment as above - wean steroids slowly ? Atrial fibrillation - Not on any BB - Cont Eliquis - Rate controlled - on telemetry monitoring noticed to be low 40's in HR - PM/ICD checked, normal function ?? Diabetes mellitus due to underlying condition, uncontrolled, with stage 3 chronic kidney disease, with long-term current use of insulin On amaryl and sitagliptan Will start sliding scale option 1 coverage Follow accuchecks HgbA1c: >15 (Oct 2707/2018) ?? Carotid artery disease H/O of CABGx2 (DEBORAH-LAD, SVG-PDA ) in 2004 On ezetimibe, simvastatin, metoprolol, benazepril ?? Essential hypertension On metoprolol, norvasc, benazepril will titrate ?? GERD (gastroesophageal reflux disease) On nexium - protonix here ?? Hyperlipidemia On ezetimibe and simvastatin LDL 61 ?? Sleep apnea Should wears CPAP at home But not used for years Last sleep study in possible 2008 ?? Obesity Diet/exercise/weightloss discussed with patient ? SUBJECTIVE INTERVAL HPI: Feels improving slowly, no fever, chills, cp nor palpitations. Reported choking food this morning, had severe cough which is better now Stable vitals MEDICATIONS: Reviewed Current Facility-Administered Medications: meropenem 1 g in D5W 100 mL MB+ (MERREM) 1 g INTRAVENOUS q 12 H Max Rodolfo 1 g at 12/29/17 0825 aspirin, enteric coated 81 mg tab(s) (ASPIRIN, ENTERIC COATED) 81 mg ORAL DAILY Jose C Loomis Anjana 81 mg at 12/28/17 0836 predniSONE 20 mg tab(s) (DELTASONE) 20 mg ORAL DAILY Radha Loomis Md Thuestad 20 mg at 12/29/17 08 dextrose 40 % 15 g 15 g ORAL PRN Leandro Kauffman MD Or glucagon 1 mg injection (GLUCAGEN) 1 mg INTRAMUSCULAR PRN Leandro Kauffman MD Or dextrose 50% in water 25 mL syringe 12.5 g INTRAVENOUS PRN Leandro Kauffman MD simvastatin 40 mg tab(s) (ZOCOR) 40 mg ORAL AT BEDTIME Radha Loomis Md Thuestad 40 mg at 12/28/172014 gabapentin 600 mg cap(s) (NEURONTIN) 600 mg ORAL BID Radha Loomis Md Thuestad 600 mg at 12/29/17 08 ipratropium-albuterol 3 mL nebulizer solution (DUONEB) 3 mL INHALATION q 4 H while awake Radha Adams) Thuestad 3 mL at 12/29/17 1010 colchicine 0.6 mg tab(s) 0.6 mg ORAL DAILY Radha Adams) Thuestad 0.6 mg at 12/29/17 08 apixaban 5 mg tab(s) (ELIQUIS) 5 mg ORAL BID Radha Loomis Md Thuestad 5 mg at 12/29/17 08 insulin lispro 10 Units injection (rapid acting) (HumaLOG) 10 Units SUBCUTANEOUS TID w MEALS Radha Loomis Md Thuestad 10 Units at 12/29/17 0822 insulin glargine 45 Units injection (long acting) (LANTUS) 45 Units SUBCUTANEOUS DAILY (8 AM) Radha Loomis Md Thuestad 45 Units at 12/29/17 0825 insulin glargine 30 Units injection (long acting) (LANTUS) 30 Units SUBCUTANEOUS AT BEDTIME Radha Adams) Thuestad 30 Units at 12/28/172015 guaiFENesin-dextromethorphan 100-10 mg/5 mL 5-10 mL oral liquid (ROBITUSSIN DM) 5-10 mL ORAL q 6 H PRN Radha Adams) Thuestad 10 mL at 12/29/17 0427 potassium chloride ER 10 mEq tab(s) (K-DUR, KLOR-CON) 10 mEq ORAL DAILY Radha Ebonie Adams) Thuestad 10 mEq at 12/29/17 0822 spironolactone 25 mg tab(s) (ALDACTONE) 25 mg ORAL DAILY Radha Adams) Thuestad 25 mg at 12/29/[address] 40 mg tab(s) (PROTONIX) 40 mg ORAL DAILY (6 AM) Radha Adams) Thuestad 40 mg at 12/29/17 0509 isosorbide mononitrate ER 30 mg tab(s) (IMDUR) 30 mg ORAL DAILY Wind Gapebonie Adams) Thuestad 30 mg at 12/29/17 0822 nitroglycerin sublingual 0.4 mg tab(s) (NITROQUICK) 0.4 mg SUBLINGUAL q 5 MIN PRN Radha Adams) Linkuestad 0.9% NaCl 3-5 mL 3-5 mL INTRAVENOUS q 12 H Radha Loomis Md Thuestad 5 mL at 12/29/17 0825 furosemide 40 mg injection (LASIX) 40 mg INTRAVENOUS DAILY Rahda Adams) Thuestad 40 mg at 12/29/17 0822 benzonatate 100 mg cap(s) (TESSALON PERLE) 100 mg ORAL TID Hareesh Singam 100 mg at 12/29/17 0821 insulin lispro injection (rapid acting) (HumaLOG) SUBCUTANEOUS w MEALS Caroline (Audio Production Engineer) Garcia 2 Units at 12/29/17 0825 insulin lispro injection (rapid acting) (HumaLOG) SUBCUTANEOUS AT BEDTIME Caroline (Audio Production Engineer) Garcia 4 Units at 12/28/172014 OBJECTIVE PHYSICAL EXAM: BP 129/92 Pulse 65 Temp (Src) 97.3 (Oral) Resp 18 Ht 5' 8 (1.73m) Wt 232 lb 9.4 oz (105.5kg) SpO2 98% BMI 35.37 kg/(m2). GENERAL: Alert, no distress, cooperative, obese SKIN: Skin color, texture, turgor normal. No rashes or lesions. EYES: PERRLA, EOMI OROPHARYNX: Lips, mucosa, and tongue normal. Teeth and gums normal. Oropharynx normal. NECK: No jugulovenous distention, No carotid bruits, Carotid pulse normal contour, Supple LUNGS: Lungs clear to auscultation, Good diaphragmatic excursion CARDIAC: Normal S1 and S2; no rubs, murmurs, or gallops ABDOMEN: Abdomen soft, non-tender, BS normal, No masses or organomegaly EXTREMITIES: Extremities normal, no deformities, edema, clubbing or skin discoloration. Good capillary refill., No ulcers NEURO: Reflexes normal and symmetric. Sensation grossly intact, Cranial nerves II-XII intact PULSES: 2+ radial, 2+ carotid DATA: Diagnostic tests reviewed for today's visit: CBC, Coags, BMP, Mg, Phos Recent Labs 12/29/17 0312 12/28/17 0309 12/27/17 0600 WBC 9.15 9.78 11.68* HB 12.0 12.8 13.0 HCT 38.7 42.0 42.2 PLT 104* 112* 126* NA 140 141 137 K 5.1 5.1 5.0 CHLOR 99 99 96* CO2 36* 35* 33* BUN 65* 70* 70* CREAT 1.52* 1.61* 1.56* GLUC 145* 161* 235* CA 8.3* 9.2 9.2 MG 2.5* 2.7* 2.5* VTE Prophylaxis: Patient is already anti-coagulated. Disposition: Home with [facility] PT Plan of care discussed with: Patient and [employer] consultant SIGNATURE: Peyman guerrero MD DATE: December 29, 2017 TIME: 11:34 AM Previous Version Mara Hernandez MD 12/30/2017 7:19 AM Signed GASTROENTEROLOGY CONSULT NOTE PATIENT NAME: Luz Baca SERVICE DATE: December 29, 2017 SERVICE TIME: 12:56 PM PRIMARY CARE PHYSICIAN: Jameson Kamara MD ATTENDING PHYSICIAN: Peyman Guerrero MD REASON FOR ADMISSION: Pulmonary infiltrates REASON FOR CONSULTATION: Dysphagia / Aspiriation HPI: This is a 77 year old female with a past medical history significant for atrial fibrillation, CAD s/p stenting on Eliquis and Aspirin, diabetes, HTN, HH, hypertrophic obstructive cardiomyopathy, CKD - stage IV, obesity and sleep apnea who presented to [facility] on 12/23/2017 with pneumonia. Due to the patients complaints of a long standing history of dysphagia as well as concern for aspiration an MBS and esophagram were obtained and are suggestive of a dilated esophagus with minimal primary peristaltic wave and a narrowing at the gastroesophageal junction. Endoscopy evaluation has been recommended therefore a GI consult has been requested. The patient is without complaints of abdominal pain. She does report intermittent nausea, vomiting and a sour stomach. Does take Pantoprazole daily with prn vinegar for a sour stomach. Ms. Baca explains that she has had noticeable dysphagia for 2+ years. Finds trouble swallowing with both solids and liquids. Has had to induce vomiting to clear her food at times and feels as if this difficulty has gotten worse over time. Her appetite has been poor and reports a weight loss as her dentures no longer fit right. Unable to quantify her weight loss. Denies previous endoscopy evaluation. Bowel pattern varies from constipation to diarrhea but does report some type of BM daily. The patient was hospitalized in [place] for what sounds to be a lower GI bleeding episode - however details are not known. She has been taking Eliquis BID. Denies ASA or NSAID use. ALLERGIES: Bactrim Latex Rash, itching PCN Rash, itching Tetracycline Emesis, diarrhea Atorvastatin Rash Codeine Numbness Dilaudid Meperidine Pentazocine Pioglitazone Propoxyphene PAST MEDICAL HISTORY: Arthritis Atrial fibrillation CAD Cardiomegaly CKD - stage IV COPD Depression Diabetes Diabetic neuropathy GERD Gout HH Hypertrophic obstructive cardiomyopathy HTN HLD Morbid obesity Pneumonia Sleep apnea SVT PAST SURGICAL HISTORY: Septal myectomy and CABG x 2 Left breast nodule Hysterectomy Perianal abscess drained Cholecystectomy Skin lesions removed Cardiac stenting Defibrillator MEDICATIONS: Prior to Admission Medications: Prescriptions Prior to Admission: colchicine (COLCRYS) 0.6 mg tablet Take 0.6 mg by mouth once daily. Disp: Rfl: 12/23/2017 at 0900 apixaban (ELIQUIS) 5 mg tab(s) Take 5 mg by mouth twice daily. Disp: Rfl: 12/23/2017 at 0900 furosemide (LASIX) 40 mg tablet Take 60 mg (1.5 tablets) by mouth every morning and 40 mg (1 tablet) every day around noon. Disp: Rfl: 12/23/2017 at 0900 insulin aspart U-100 (NOVOLOG FLEXPEN U-100 INSULIN) 100 unit/mL inpn Inject 15 Units subcutaneously three times daily with meals. Disp: Rfl: 12/23/2017 at 0900 insulin glargine (LANTUS SOLOSTAR U-100 INSULIN) 100 unit/mL (3 mL) inpn Inject 60 Units subcutaneously every morning. Disp: Rfl: 12/23/2017 at 0900 insulin glargine (LANTUS SOLOSTAR U-100 INSULIN) 100 unit/mL (3 mL) inpn Inject 40 Units subcutaneously daily at bedtime. Disp: Rfl: 12/22/2017 at 2200 isosorbide mononitrate ER (IMDUR) 30 mg 24 hr tablet Take 30 mg by mouth once daily. Disp: Rfl: 12/23/[address] (PROTONIX) 40 mg tablet Take 40 mg by mouth once daily. Disp: Rfl: 12/23/2017 at 0900 [] predniSONE (DELTASONE) 10 mg tablet Taper: 40mg PO daily x 3 days, 30mg PO daily x 3 days, 20mg PO daily x 3 days, 10mg PO daily x 3 days, then stop. Disp: Rfl: 12/23/2017 at 0900 simvastatin (ZOCOR) 40 mg tablet Take 40 mg by mouth every morning. Disp: Rfl: 12/23/2017 at 0900 benzonatate (TESSALON PERLE) 100 mg capsule Take 100 mg by mouth three times daily as needed. Disp: Rfl: 12/23/2017 at 0900 spironolactone (ALDACTONE) 25 mg tablet Take 1 tablet by mouth once daily. Disp: Rfl: 12/23/2017 at 0900 [] nystatin (MYCOSTATIN) 100,000 unit/mL suspension Take 2 mL by mouth four times daily for 7 days. SWISH AND SWALLOW 2 ML 4 TIMES PER DAY. Disp: 56 mL Rfl: 0 12/23/2017 at 0900 ipratropium-albuterol (DUONEB) 0.5 mg-3 mg(2.5 mg base)/3 mL nebu Inhale 3 mL as instructed every 4 hours as needed. Disp: 180 Vial Rfl: 3 12/23/2017 at Unknown time guaiFENesin-dextromethorphan (ROBITUSSIN DM) 100-10 mg/5 mL syrup Take 5-10 mL by mouth every 6 hours as needed for Cough. Disp: 118 mL Rfl: 0 12/23/2017 at 0900 nitroglycerin sublingual (NITROQUICK) 0.4 mg SL tablet Dissolve 1 tablet under the tongue every 5 minutes as needed. Disp: 1 Bottle of 25 Rfl: 0 Unknown at Unknown time albuterol HFA (VENTOLIN HFA) 90 mcg/actuation inhaler Inhale 2 Puffs as instructed every 4 hours as needed. Disp: 1 Inhaler Rfl: 1 12/22/2017 at Unknown time OXYGEN, HOME THERAPY, Inhale 2.5 L/min as instructed as directed. Disp: Rfl: Unknown at Unknown time albuterol (PROVENTIL) 5 mg/mL nebu Inhale 0.5 mL as instructed one time only for 1 dose. 1 DOSE NOW - BACK OFFICE. PLACE 0.5 ML PER DROPPER AND 2.5 ML OF NORMAL SALINE INTO RESERVOIR. Disp: 1 mL Rfl: 0 12/09/2017 gabapentin (NEURONTIN) 300 mg capsule Take 2 capsules by mouth three times daily for 30 days. (Patient taking differently: Take 600 mg by mouth twice daily. ) Disp: Rfl: 12/09/2017 Current Hospital Medications: Current hospital medications: [START ON 12/30/2017] furosemide 40 mg tab(s) (LASIX) 40 mg ORAL DAILY meropenem 1 g in D5W 100 mL MB+ (MERREM) 1 g INTRAVENOUS q 12 H aspirin, enteric coated 81 mg tab(s) (ASPIRIN, ENTERIC COATED) 81 mg ORAL DAILY predniSONE 20 mg tab(s) (DELTASONE) 20 mg ORAL DAILY dextrose 40 % 15 g 15 g ORAL PRN glucagon 1 mg injection (GLUCAGEN) 1 mg INTRAMUSCULAR PRN dextrose 50% in water 25 mL syringe 12.5 g INTRAVENOUS PRN simvastatin 40 mg tab(s) (ZOCOR) 40 mg ORAL AT BEDTIME gabapentin 600 mg cap(s) (NEURONTIN) 600 mg ORAL BID ipratropium-albuterol 3 mL nebulizer solution (DUONEB) 3 mL INHALATION q 4 H while awake colchicine 0.6 mg tab(s) 0.6 mg ORAL DAILY apixaban 5 mg tab(s) (ELIQUIS) 5 mg ORAL BID insulin lispro 10 Units injection (rapid acting) (HumaLOG) 10 Units SUBCUTANEOUS TID w MEALS insulin glargine 45 Units injection (long acting) (LANTUS) 45 Units SUBCUTANEOUS DAILY (8 AM) insulin glargine 30 Units injection (long acting) (LANTUS) 30 Units SUBCUTANEOUS AT BEDTIME guaiFENesin-dextromethorphan 100-10 mg/5 mL 5-10 mL oral liquid (ROBITUSSIN DM) 5-10 mL ORAL q 6 H PRN potassium chloride ER 10 mEq tab(s) (K-DUR, KLOR-CON) 10 mEq ORAL DAILY spironolactone 25 mg tab(s) (ALDACTONE) 25 mg ORAL DAILY pantoprazole DR 40 mg tab(s) (PROTONIX) 40 mg ORAL DAILY (6 AM) isosorbide mononitrate ER 30 mg tab(s) (IMDUR) 30 mg ORAL DAILY nitroglycerin sublingual 0.4 mg tab(s) (NITROQUICK) 0.4 mg SUBLINGUAL q 5 MIN PRN 0.9% NaCl 3-5 mL 3-5 mL INTRAVENOUS q 12 H benzonatate 100 mg cap(s) (TESSALON PERLE) 100 mg ORAL TID insulin lispro injection (rapid acting) (HumaLOG) SUBCUTANEOUS w MEALS insulin lispro injection (rapid acting) (HumaLOG) SUBCUTANEOUS AT BEDTIME FAMILY HISTORY: Sisters with IBS history Father - lung cancer - at the age of 71 SOCIAL HISTORY: Marital status: Children: One Alcohol use: Denies Tobacco use: Remote. Quit in 1960. Previously smoked 2.5 packs per day for 43 years REVIEW OF SYSTEMS: CONSTITUTIONAL: No fevers, chills, night sweats, unintended weight loss CARDIOVASCULAR: No chest pain, dyspnea, palpitations, orthopnea, PND, ankle edema PULM: (+) dyspnea GI: Per HPI : No new urinary complaints, including; dysuria, gross hematuria or pyuria NEURO: No dizziness, lightheadedness or vertigo MUSC/SKEL: (+) generalized weakness PSYCH: No concerns regarding depression, anxiety or panic INTEGUMENTARY: No new skin changes (rash, new or changing mole, new growth) PHYSICAL EXAM: Patient Vitals for the past 24 hrs: BP Temp Temp src Pulse Resp SpO2 Weight 12/29/17 1129 117/59 36.3 ?C (97.3 ?F) Oral 65 18 98 % - 12/29/17 0717 129/92 36.3 ?C (97.3 ?F) Oral 64 18 99 % - 12/29/17 0409 (!) 121/49 36.3 ?C (97.3 ?F) Oral 62 18 97 % - 12/28/17 2356 117/68 36.4 ?C (97.5 ?F) Oral 63 18 99 % - 12/28/17 1952 132/59 36.5 ?C (97.7 ?F) Oral 64 20 99 % - 12/28/17 1548 127/59 36.5 ?C (97.7 ?F) - (!) 59 - 98 % - 12/28/17 1400 - - - - - - 105.5 kg (232 lb 9.4 oz) Body mass index is 35.36 kg/(m2). GENERAL: Alert AND oriented x 3. Cooperative. NAD. No dentition. EYES: No scleral icterus SKIN: [place] in color. No jaundice LUNGS: Diminished to auscultation anteriorly. Expiratory wheezes. CARDIAC: RRR ABDOMEN: BS x 4. Abdomen obese, significant upper abdominal hernia, soft, non tender, non distended, no palpable masses or organomegaly. No guarding or rebound tenderness elicited EXTREMITIES: Vascular changes to BLE LABS: Diagnostic tests reviewed for today's visit: CBC, Coags, BMP, Mg, Phos Recent Labs 12/29/17 0312 12/28/17 0309 12/27/17 0600 WBC 9.15 9.78 11.68* HB 12.0 12.8 13.0 HCT 38.7 42.0 42.2 PLT 104* 112* 126* NA 140 141 137 K 5.1 5.1 5.0 CHLOR 99 99 96* CO2 36* 35* 33* BUN 65* 70* 70* CREAT 1.52* 1.61* 1.56* GLUC 145* 161* 235* CA 8.3* 9.2 9.2 MG 2.5* 2.7* 2.5* RADIOLOGY 12/21/2017 Echo - Technically difficult exam due to body habitus and COPD. - Exam indication: s/p myectomy - The left ventricle is normal in size. There is mild left ventricular hypertrophy. Left ventricular systolic function is mildly decreased. EF = 50 ? 5% (visual est.) Grade III left ventricular diastolic dysfunction. - The right ventricle is dilated. Right ventricular systolic function is mildly decreased. - The left atrial cavity is moderately dilated. - The right atrial cavity is dilated. - There is moderate (2+ - 3+) tricuspid valve regurgitation. - Estimated right ventricular systolic pressure is 78 mmHg consistent with moderately severe pulmonary hypertension. Estimated right atrial pressure is 10 mmHg. - Definity contrast could not be administered d/t unavailability of staff. - s/p myectomy: LVOT gradient at rest 6 mmHg, trivial-1+ MR. Patient unable to valsalva. - Exam was compared with the prior echocardiographic exam performed on 09/23/2010. LV function is normal on this study, and the patient appears to be in NSR (was in AF with RVR on prior study) 12/23/2017 CXR Opacity in the left lung base is suggestive of a small left pleural effusion, atelectasis and/or consolidation. Mild right basilar atelectasis. No pneumothorax. There is prominence of the pulmonary vasculature is suggestive of pulmonary congestion/edema. 12/29/2017 MBS/Esophagram Esophagus: Patient was able to swallow barium without apparent difficulty initially. ?It passed through a moderately dilated esophagus to level the gastroesophageal junction. ?Suggestion of some narrowing at the level gastroesophageal junction. ?No definite primary peristaltic wave was seen. The esophagus was quite dilated and tortuous in the cervical region. Stomach: Contrast passed into the stomach and into the small bowel IMPRESSION: Esophagus very dilated with no apparent primary peristaltic wave. ?Did appear to be some narrowing at the gastroesophageal junction. ?Correlation with endoscopy recommended No aspiration was seen MOST RECENT EGD / COLONOSCOPY Have been completed is unclear of details surrounding procedures. Believes they were completed at [facility] in [facility] ASSESSMENT 1. Chronic worsening dysphagia 2. Abn MBS/Esophagram - Dilated esophagus with narrowing at the GE junction 3. Chronic thrombocytopenia 4. Pneumonia with suspicion for aspiration / Acute exacerbation COPD / MARLA 5. A. Fib / CAD hx of CABG x 2 and stenting / CHF 6. Morbid obesity PLAN - Recommend EGD evaluation however the earliest this could be completed will be on 12/31/2017 to allow for clearance of Eliquis and Aspirin - discussed this with Dr. Guerrero who is in agreement - Stop Eliquis and Aspirin (last dose 12/29) - Atb per ID (Meropenem) - Continue Pantoprazole 40 mg po daily - Carb controlled, 4 gram sodium diet with 1400 ml fluid restriction - Daily BMP, CBC and Magnesium - Attempt to obtain records from [facility] in [place] Thank you for the opportunity to participate in the care of this patient. I will continue to follow with you. SIGNATURE: Mandy Yanez CNP DATE: December 29, 2017 TIME: 12:56 PM Patient seen and examined. Discussed with mid level provider. Aguilera findings confirmed. Plan as outlined. Pt w dysphagia and suggestion of narrowing at GE junction. EGD w dilatation later this week after antiplatelet therapy has metabolized. Mara Hernandez MD December 30, 2017 7:18 AM Previous Version Max Reynolds MD 12/29/2017 1:29 PM Signed INFECTIOUS DISEASE PROGRESS NOTE Patient Name: Luz Baca Date: 12/29/2017 ASSESSMENT: 1. Bibasilar pneumonia, concern is for aspiration and gram- negative component due to her recent hospitalization. MRSA nasal swab is negative. 2. Leukocytosis, likely due to #1. 3. Acute on chronic respiratory failure, which is improved likely due to #1. 4. Severe COPD. 5. Multiple antibiotic allergies. 6. Thrombocytopenia, which appears to be chronic. 7. Chronic kidney disease stage 4 8. Suspected pharyngeal and esophageal phase dysphagia PLAN: Continue meropenem await esophagogram INTERVAL HISTORY: ROS done with pt/RN and negative unless stated. No fevers chills nausea vomiting diarrhea. less cough and shortness of breath. MEDICATIONS: reviewed. Current hospital medications: [START ON 12/30/2017] furosemide 40 mg tab(s) (LASIX) 40 mg ORAL DAILY meropenem 1 g in D5W 100 mL MB+ (MERREM) 1 g INTRAVENOUS q 12 H aspirin, enteric coated 81 mg tab(s) (ASPIRIN, ENTERIC COATED) 81 mg ORAL DAILY predniSONE 20 mg tab(s) (DELTASONE) 20 mg ORAL DAILY dextrose 40 % 15 g 15 g ORAL PRN glucagon 1 mg injection (GLUCAGEN) 1 mg INTRAMUSCULAR PRN dextrose 50% in water 25 mL syringe 12.5 g INTRAVENOUS PRN simvastatin 40 mg tab(s) (ZOCOR) 40 mg ORAL AT BEDTIME gabapentin 600 mg cap(s) (NEURONTIN) 600 mg ORAL BID ipratropium-albuterol 3 mL nebulizer solution (DUONEB) 3 mL INHALATION q 4 H while awake colchicine 0.6 mg tab(s) 0.6 mg ORAL DAILY apixaban 5 mg tab(s) (ELIQUIS) 5 mg ORAL BID insulin lispro 10 Units injection (rapid acting) (HumaLOG) 10 Units SUBCUTANEOUS TID w MEALS insulin glargine 45 Units injection (long acting) (LANTUS) 45 Units SUBCUTANEOUS DAILY (8 AM) insulin glargine 30 Units injection (long acting) (LANTUS) 30 Units SUBCUTANEOUS AT BEDTIME guaiFENesin-dextromethorphan 100-10 mg/5 mL 5-10 mL oral liquid (ROBITUSSIN DM) 5-10 mL ORAL q 6 H PRN potassium chloride ER 10 mEq tab(s) (K-DUR, KLOR-CON) 10 mEq ORAL DAILY spironolactone 25 mg tab(s) (ALDACTONE) 25 mg ORAL DAILY pantoprazole DR 40 mg tab(s) (PROTONIX) 40 mg ORAL DAILY (6 AM) isosorbide mononitrate ER 30 mg tab(s) (IMDUR) 30 mg ORAL DAILY nitroglycerin sublingual 0.4 mg tab(s) (NITROQUICK) 0.4 mg SUBLINGUAL q 5 MIN PRN 0.9% NaCl 3-5 mL 3-5 mL INTRAVENOUS q 12 H benzonatate 100 mg cap(s) (TESSALON PERLE) 100 mg ORAL TID insulin lispro injection (rapid acting) (HumaLOG) SUBCUTANEOUS w MEALS insulin lispro injection (rapid acting) (HumaLOG) SUBCUTANEOUS AT BEDTIME PHYSICAL EXAM: Vital signs: BP 117/59 Pulse 65 Temp 36.3 ?C (97.3 ?F) (Oral) Resp 18 Ht 172.7 cm (5' 8) Wt 105.5 kg (232 lb 9.4 oz) SpO2 98% BMI 35.36 kg/m2 General: alert, oriented, NAD Lungs: bilaterally Coarse breath sounds better Heart: regular rate and rhythm Abdomen: soft, non tender, non distended, BS+ Extremities: no swollen joints Skin: no rash IV sites - wnl Lab data: reviewed Recent Labs 12/29/17 0312 12/28/17 0309 12/27/17 0600 WBC 9.15 9.78 11.68* HB 12.0 12.8 13.0 PLT 104* 112* 126* NA 140 141 137 K 5.1 5.1 5.0 CO2 36* 35* 33* BUN 65* 70* 70* CREAT 1.52* 1.61* 1.56* Microbiology data: reviewed Imaging data: reviewed Max Reynolds MD Pager: Mary Nieto, SOHAN 12/29/2017 2:47 PM Cosign Needed Physical Therapy Treatment SERVICE DATE: 12/29/2017 SERVICE TIME: 1339 to 1410 ROOM: [place] [address] Recommended Discharge Disposition: Home PT Recommended Discharge Disposition Comments: Patient would benefit from home PT for home safety assessment and to increase strength/safety/tolerance with functional progression Anticipated Discharge Needs: Physical Assist at Home;Supervision at Home;Equipment Physical Assist at Home for: Transportation;Shopping;Self Care;Meals;Laundry;Cleaning Supervision at Home due to: Decreased safety awareness Recommended Discharge Equipment: No equipment needs anticipated PT Recommendations to Nursing: Ambulate with device;To bathroom;In halls;Transfer to/from chair;OOB for Meals;With assist of 1 person Device: Wheeled Walker (gait belt) PT 6 Clicks Score: 22 Precautions/Activity Restrictions: Diabetic;Diet Restrictions;Fluid Restrictions;Fall Risk;Lines/Tubes/Drains Precaution/Activity Restriction Comments: standard precautions ASSESSMENT : Patient pleasant and highly motivated to participate with PT. Patient successfully able to progress ambulation distance and perform standing exercises with no adverse effects. Patient is no more than CGA/SBA with all functional mobility and gait training. Patient with mild unsteadiness throughout. Educated patient with use of FWW at all times, patient agreeable. Continue to progress patient as able. Tolerated Full Session Physical Therapy Problem List: Safety Deficits;Decreased Activity Tolerance;Decreased Range Of Motion;Balance Impaired Patient /Caregiver Goals: Go Home (with Home PT and assist of family) Goals for Plan of Care: Able to perform HEP with: Modified Independent (w handout for fxnal LE strength x 20 reps) Transfer supine to/from sit with: Independent (to safely sit EOB without bed adjustments) Transfer sit to/from stand with: Stand By Assistance Ambulate with: Stand By Assistance Distance: 150 - 200 feet to safely navigate in home environment Device: Wheeled Walker Ambulate up and down steps with: Stand By Assistance Number of steps: 2 (to safely enter home) Device: (LRAD) Goal: Patient demonstrates fair+ to good balance with functional progression to decrease risk of falls Progress Toward Goals: Progressing as expected Rehab Potential: Good PLAN: Treatment Frequency (times per week): 4 Current admission Treatment Interventions: Education;Self Care / Home Management;Energy Conservation Training;Joint Mobility;Strengthening;Functional Mobility Training;Balance Training;Neuromuscular Re-education Plan of Care developed with: Patient TREATMENT INTERVENTIONS: Therapy Diagnosis: Reduced mobility-other Interventions Provided: Therapeutic Exercise (69080);Therapeutic Activity (46846);Gait Training (11220) Therapeutic Exercise (45056) Treatment Minutes: 10 1 unit Skilled Intervention(s): Instruction in standing therapeutic exercise for bilateral heel/toe raises, hip abduction/adduction, marching, and hamstring curls (not performed on R LE secondary to fatigue) x 10 reps each Verbal and tactile cuing provided for correct performance of exercises Therapeutic Activity (64593) Treatment Minutes: 6 0 units Skilled Intervention(s): Instruction in sit to stand technique with proper hand placement and body positioning at edge of bed/chair Instruction in stand to sit technique with lower extremities touching chair/bed and reaching back for surface Patient educated in importance of out of bed activity for rehabilitation and to prevent functional decline. Gait Training (93334) Treatment Minutes: 15 1 unit Skilled Intervention(s): Instruction in sequencing, gait pattern, reciprocating steps Instruction in correction of gait deviations, cues for upright posture, safety, and diaphragmatic breathing Instruction in use of equipment, cues for sequence and pattern Total Timed Code Treatment Minutes: 31 Total Treatment Time (minutes): 31 FUNCTIONAL G CODE: PT 6 Clicks Score: 22 (12/29/17 1400) $ Mobility: Walking and Moving Around Current Status (G8978): CJ (12/28/17916) $ Mobility: Walking and Moving Around Goal Status (G8979): CI (12/28/17916) Based on clinical assessment and the score on the 6 Clicks Functional Assessment Tool, the G code and corresponding severity modifiers are documented above. SUBJECTIVE: Current Hospital Course: Chart reviewed and no significant medical updates relevant to therapy were noted Patient Report: Patient sitting EOB upon arrival, agreeable and motivated to participate in PT. Patient states, I know you girls are here to help me, I will do whatever I can. Patient appropriate for PT per RNChantelle. Home Environment Patient Lives With: Family (daughter) Assistance Available: 24 Hour (assist provided by dtr/her fiance,grand dtr) Entry To Home: Stairs;Without Rail Number Of Stairs Into Home: 2 Number Of Stairs To Bed/Bath: 0 (first floor set up) Tub/Shower Type: tub/shower set up with grab bars Laundry: dtr does per laundromat Equipment Owned: Cane;Commode-Bedside;Grab Bars-Shower;Wheeled Walker;Home Oxygen;Other: See Comment (broken hospital bed) Prior Functional Level: Within Functional Limits;Required Assistance;History of Falls Assistance Required With: Cleaning;Laundry;Meals;Self Care;Shopping;Transportation Prior Functional Level Comments: One fall in last 6 month. Patient ind w amb short distances w FWW. Patient sleeps in hospital bed however hospital bed has springs that stick up. Daughter assists with getting her in/out of shower (stands to shower in tub), assists w bathing and dressing as patient needs. Patient is homebound except for MD appointments. Family completes all IADL's OBJECTIVE: CURRENT FUNCTIONAL STATUS: Current Functional Mobility Assist Level Additional Information Rolling Supine to Sit Other: See Comment (patient sitting EOB upon arrival) Sit to Supine Other: See Comment (patient returned to sitting EOB) Scooting Independent (forward/retro in bed) Sit to Stand Stand By Assistance (with FWW) x1 trial from EOB Stand to Sit Stand By Assistance (with FWW) Bed to Chair Toilet/Commode Gait Contact Guard Assistance (to SBA, reciprocating steps) Gait Device: Wheeled Walker Gait Distance (feet): 300'x1 Stairs Curb Step Car Transfer Gait Deviations Right Lower Extremity: Heel strike during initial stance decreased;Push-off during terminal stance decreased;Step length decreased Gait Deviations Left Lower Extremity: Heel strike during initial stance decreased;Push-off during terminal stance decreased;Step length decreased General Gait Deviations: Jane decreased;Step length decreased;Flexed trunk posture;Wide base of support Patient sitting EOB, denies symptoms at this time, call bear and personal belongings in reach, denies any further questions, concerns or needs from REGULATOR ASSEMBLER at this time. Gait belt in place for safety with all functional mobility. RN (Chantelle) aware of patient status. Discussed with patient calling for assistance 100% of the time. Balance: Static Sitting;Dynamic Sitting;Static Standing;Dynamic Standing Static Sitting Balance: Independent Dynamic Sitting Balance: Supervision Static Standing Balance: Stand By Assistance Dynamic Standing Balance: Stand By Assistance Please see discipline specific clinical documentation flowsheet for complete details for this therapy evaluation/treatment. SIGNATURE: Mary Nieto PTA PATIENT NAME: Luz Baca DATE: December 29, 2017 TIME: 2:39 PM PAGER/CONTACT #: [phone] Keren Mcadams CCC-MILITARY NURSE 12/29/2017 3:37 PM Signed Speech Therapy Treatment SERVICE DATE: 12/29/2017 SERVICE TIME: 1425 to 1445 ROOM: [place] [address] Nursing Recommendations: Reinforce use of swallowing strategies Diet Recommendations: Regular Consistency;Thin liquids Swallowing Precautions Recommendations: Anti-Reflux precautions;Maintain an upright position 20-30 minutes following all oral intake;Sit upright 90 degrees for all PO;Self-monitoring;Double swallows;Alternate bites and sips;Small Bite/Sip;Extended time between presentations ? Recommended Consults: GI; May need to consider additional diagnostic information through an Esophagram ? Results and Recommendations Discussed With: Patient;Nurse ? Recommended Discharge Disposition: Unable to determine ? IMPRESSION: Patient demonstrates pharyngeal / esophageal phase dysphagia which is negatively impacting his/her ability to effectively maintain adequate nutrition and hydration and/or airway safety. ? Precaution/Activity Restriction Comments: standard precautions ? ASSESSMENT: Tx intervention characterized by: - education/ consult on safe swallow precautions to increase tolerance of current diet without s/s of aspiration/penetration - educate on findings of MBS complete 12-28-2017; Pt able to ID precautions/ findings via Teachback method Modified Barium Swallowing Exam completed 12/28/2017 reveals the following: -poor esophageal emptying while in an upright posture; Retrograde flow is noted below the level of the pharyngoesophageal segment -no occurrence of laryngeal penetration /aspiration is noted at this time. ? Rehabilitation Precautions: Modified Diet;Aspiration Precautions;Dysphagia Precaution/Activity Restriction Comments: standard precautions Goals for Plan of Care: Swallow Goals: -Patient will demonstrate adequate return of knowledge of all compensatory strategies/instruction to effectively assist the patient in immediate safety with oral intake and swallowing. ? Patient /Caregiver Goals: Eat/Drink Without Restrictions Progress Toward Goals: Progressing as expected Rehab Potential: Good PLAN: Treatment Frequency (times per week): 3 Current admission Treatment Interventions: Dysphagia Management Plan of Care Developed with: Patient;Family TREATMENT INTERVENTIONS: Therapy Diagnosis: Dysphagia, pharyngoesophageal phase Interventions Provided: Dysphagia Therapy (86801) $ Dysphagia Therapy (99223) Billed Units: 1 unit Skilled Interventions: Provided education related to a typical swallowing mechanism in a compare and contrast manner compared to this patient's current skill set. , Educated and advised patient / caregiver on texture and liquid consistency recommendations., Instructed patient / caregiver on recommended compensatory strategies to maximize safety with oral intake while maintaining nutrition, hydration and medication stability. Total Treatment Time (minutes): 20 Physician signature certifies treatment plan of care established above for the period of 12/29/2017 through 01/12/2018. SUBJECTIVE: Current Hospital Course: Chart reviewed and no significant medical updates relevant to therapy were noted Patient Report: I had choking episode this morning on oatmeal - educate/consult of safety precautions completed Please see discipline specific clinical documentation flowsheet for complete details for this therapy evaluation/treatment. SIGNATURE: Keren Mcadams CCC-MILITARY NURSE PATIENT NAME: Luz Baca DATE: December 29, 2017 TIME: 3:33 PM PAGER: [phone] Saul Hernandez RN, RN 12/30/2017 5:36 AM Signed Nursing Progress Note Patient Name: Luz Baca Patient Location: [facility] [id number] Daily Note: 0535 - Dr. Wick notified of pts elevated potassium level; no new orders at this time; will continue to monitor This note was completed by: Saul Hernandez, ALLYSON Hernandez MD 12/30/2017 10:44 AM Signed GASTROENTEROLOGY CONSULT PROGRESS NOTE Patient Name: Luz Baca SERVICE DATE: December 30, 2017 SERVICE TIME: 9:20 AM ASSESSMENT 1. Chronic worsening dysphagia 2. Abn MBS/Esophagram - Dilated esophagus with narrowing at the GE junction 3. thrombocytopenia 4. Pneumonia with suspicion for aspiration / Acute exacerbation COPD / MARLA / Chronic home O2 5. A. Fib / CAD hx of CABG x 2 and stenting / CHF 6. Morbid obesity ? ? PLAN - Proceed with EGD in am. R+B+A discussed and patient is willing to proceed - Continue to hold Eliquis and Aspirin (last dose 12/29) - Atb per ID (Meropenem) - Continue Pantoprazole 40 mg po daily - Carb controlled, 4 gram sodium diet with 1400 ml fluid restriction - Daily BMP, CBC and Magnesium - Attempt to obtain records from [facility] in [place] INTERVAL HPI: Patient reports feeling well this am. No complaints of abdominal pain, nausea or vomiting. Breathing is slowly improving each day. Tolerating a carb controlled diet with 4 gram sodium. However daughter has been bringing in food from the cafeteria. Working with therapy and ambulating the hallways. PHYSICAL EXAM: Patient Vitals for the past 24 hrs: BP Temp Temp src Pulse Resp SpO2 12/30/17 0744 109/85 36.6 ?C (97.9 ?F) Oral 66 18 97 % 12/30/17 0435 110/59 36.3 ?C (97.3 ?F) Oral 64 20 100 % 12/30/17 0019 126/53 36.3 ?C (97.3 ?F) Oral (!) 59 20 97 % 12/29/17 1954 (!) 128/49 36.6 ?C (97.9 ?F) Oral (!) 59 20 98 % 12/29/17 1530 107/81 37.4 ?C (99.3 ?F) Oral 63 18 92 % 12/29/17 1129 117/59 36.3 ?C (97.3 ?F) Oral 65 18 98 % GENERAL: Alert AND oriented x 3. Cooperative. NAD. No dentition. EYES: No scleral icterus SKIN: [place] in color. No jaundice LUNGS: Diminished to auscultation anteriorly. Expiratory wheezes. CARDIAC: RRR ABDOMEN: BS x 4. Abdomen obese, significant upper abdominal hernia, soft, non tender, non distended, no palpable masses or organomegaly. No guarding or rebound tenderness elicited EXTREMITIES: Vascular changes to BLE MEDICATIONS: Current hospital medications: [START ON 12/31/2017] NaCl 0.9% iv infusion 100 mL/hr INTRAVENOUS (PACU) CONTINUOUS furosemide 40 mg tab(s) (LASIX) 40 mg ORAL DAILY meropenem 1 g in D5W 100 mL MB+ (MERREM) 1 g INTRAVENOUS q 12 H predniSONE 20 mg tab(s) (DELTASONE) 20 mg ORAL DAILY dextrose 40 % 15 g 15 g ORAL PRN glucagon 1 mg injection (GLUCAGEN) 1 mg INTRAMUSCULAR PRN dextrose 50% in water 25 mL syringe 12.5 g INTRAVENOUS PRN simvastatin 40 mg tab(s) (ZOCOR) 40 mg ORAL AT BEDTIME gabapentin 600 mg cap(s) (NEURONTIN) 600 mg ORAL BID ipratropium-albuterol 3 mL nebulizer solution (DUONEB) 3 mL INHALATION q 4 H while awake colchicine 0.6 mg tab(s) 0.6 mg ORAL DAILY insulin lispro 10 Units injection (rapid acting) (HumaLOG) 10 Units SUBCUTANEOUS TID w MEALS insulin glargine 45 Units injection (long acting) (LANTUS) 45 Units SUBCUTANEOUS DAILY (8 AM) insulin glargine 30 Units injection (long acting) (LANTUS) 30 Units SUBCUTANEOUS AT BEDTIME guaiFENesin-dextromethorphan 100-10 mg/5 mL 5-10 mL oral liquid (ROBITUSSIN DM) 5-10 mL ORAL q 6 H PRN potassium chloride ER 10 mEq tab(s) (K-DUR, KLOR-CON) 10 mEq ORAL DAILY spironolactone 25 mg tab(s) (ALDACTONE) 25 mg ORAL DAILY pantoprazole DR 40 mg tab(s) (PROTONIX) 40 mg ORAL DAILY (6 AM) isosorbide mononitrate ER 30 mg tab(s) (IMDUR) 30 mg ORAL DAILY nitroglycerin sublingual 0.4 mg tab(s) (NITROQUICK) 0.4 mg SUBLINGUAL q 5 MIN PRN 0.9% NaCl 3-5 mL 3-5 mL INTRAVENOUS q 12 H benzonatate 100 mg cap(s) (TESSALON PERLE) 100 mg ORAL TID insulin lispro injection (rapid acting) (HumaLOG) SUBCUTANEOUS w MEALS insulin lispro injection (rapid acting) (HumaLOG) SUBCUTANEOUS AT BEDTIME LABS: CBC, Coags, BMP, Mg, Phos Recent Labs 12/30/17 0345 12/29/17 0312 12/28/17 0309 WBC 10.16 9.15 9.78 HB 11.9 12.0 12.8 HCT 39.3 38.7 42.0 PLT 104* 104* 112* NA 142 140 141 K 5.4* 5.1 5.1 CHLOR 101 99 99 CO2 34* 36* 35* BUN 70* 65* 70* CREAT 1.46* 1.52* 1.61* GLUC 203* 145* 161* CA 8.8 8.3* 9.2 MG 2.6* 2.5* 2.7* Liver Function, Amylase, AND Lipase [facility] [place] LABS: Component 07/14/2004 07/25/2004 09/23/2010 05/17/2017 10/27/2017 12/15/2017 12/23/2017 12/24/2017 12/25/2017 12/27/2017 12/28/2017 12/29/2017 12/30/2017 Platelet Count 187 149 (A) 179 170 159 236 130 (L) 135 (L) 135 (L) 126 (L) 112 (L) 104 (L) 104 (L) RADIOLOGY 12/21/2017 Echo - Technically difficult exam due to body habitus and COPD. - Exam indication: s/p myectomy - The left ventricle is normal in size. There is mild left ventricular hypertrophy. Left ventricular systolic function is mildly decreased. EF = 50 ? 5% (visual est.) Grade III left ventricular diastolic dysfunction. - The right ventricle is dilated. Right ventricular systolic function is mildly decreased. - The left atrial cavity is moderately dilated. - The right atrial cavity is dilated. - There is moderate (2+ - 3+) tricuspid valve regurgitation. - Estimated right ventricular systolic pressure is 78 mmHg consistent with moderately severe pulmonary hypertension. Estimated right atrial pressure is 10 mmHg. - Definity contrast could not be administered d/t unavailability of staff. - s/p myectomy: LVOT gradient at rest 6 mmHg, trivial-1+ MR. Patient unable to valsalva. - Exam was compared with the prior echocardiographic exam performed on 09/23/2010. LV function is normal on this study, and the patient appears to be in NSR (was in AF with RVR on prior study) ? 12/23/2017 CXR Opacity in the left lung base is suggestive of a small left pleural effusion, atelectasis and/or consolidation. Mild right basilar atelectasis. No pneumothorax. There is prominence of the pulmonary vasculature is suggestive of pulmonary congestion/edema. ? 12/29/2017 MBS/Esophagram Esophagus: Patient was able to swallow barium without apparent difficulty initially. ?It passed through a moderately dilated esophagus to level the gastroesophageal junction. ?Suggestion of some narrowing at the level gastroesophageal junction. ?No definite primary peristaltic wave was seen. The esophagus was quite dilated and tortuous in the cervical region. Stomach: Contrast passed into the stomach and into the small bowel IMPRESSION: Esophagus very dilated with no apparent primary peristaltic wave. ?Did appear to be some narrowing at the gastroesophageal junction. ?Correlation with endoscopy recommended No aspiration was seen ? MOST RECENT EGD / COLONOSCOPY Have been completed is unclear of details surrounding procedures. Believes they were completed at [facility] in [facility] ? SIGNATURE: Mandy Yanez CNP DATE: December 30, 2017 TIME: 9:20 AM Patient seen and examined. Discussed with mid level provider. Aguilera findings confirmed. Plan as outlined. Dysphagia and GE junction narrowing. EGD w dilatation in am. Mara Hernandez MD December 30, 2017 10:43 AM Previous Version Mary Nieto PTA 12/30/2017 9:34 AM Cosign Needed Physical Therapy Treatment SERVICE DATE: 12/30/2017 SERVICE TIME: 08 to 0911 ROOM: [place] [address] Recommended Discharge Disposition: Home PT Recommended Discharge Disposition Comments: Patient would benefit from home PT for home safety assessment and to increase strength/safety/tolerance with functional progression Anticipated Discharge Needs: Physical Assist at Home;Supervision at Home;Equipment Physical Assist at Home for: Transportation;Shopping;Self Care;Meals;Laundry;Cleaning Supervision at Home due to: Decreased safety awareness Recommended Discharge Equipment: No equipment needs anticipated PT Recommendations to Nursing: Ambulate with device;To bathroom;In halls;Transfer to/from chair;OOB for Meals;With assist of 1 person Device: Wheeled Walker (gait belt) PT 6 Clicks Score: 22 Precautions/Activity Restrictions: Diabetic;Diet Restrictions;Fluid Restrictions;Fall Risk;Lines/Tubes/Drains Precaution/Activity Restriction Comments: standard precautions ASSESSMENT : Patient pleasant and highly motivated to participate with PT. Patient successfully able to progress ambulation distance, initiate stair training and perform standing exercises with no adverse effects. Patient is no more than CGA/SBA with all functional mobility. Patient demonstrates good safety awareness and appropriately follows therapist cues. Patient fatigues quickly, requires frequent rest breaks. Patient reports that hand rail is being installed on stairs at home before discharge. Tolerated Full Session Physical Therapy Problem List: Safety Deficits;Decreased Activity Tolerance;Decreased Strength;Functional Mobility Impairment;Balance Impaired Patient /Caregiver Goals: Go Home (with Home PT and assist of daughter) Goals for Plan of Care: Able to perform HEP with: Modified Independent (w handout for fxnal LE strength x 20 reps) Transfer supine to/from sit with: Independent (to safely sit EOB without bed adjustments) Transfer sit to/from stand with: Stand By Assistance Ambulate with: Stand By Assistance Distance: 150 - 200 feet to safely navigate in home environment Device: Wheeled Walker Ambulate up and down steps with: Stand By Assistance Number of steps: 2 (to safely enter home) Device: (LRAD) Goal: Patient demonstrates fair+ to good balance with functional progression to decrease risk of falls Progress Toward Goals: Progressing as expected Rehab Potential: Good PLAN: Treatment Frequency (times per week): 4 Current admission Treatment Interventions: Education;Self Care / Home Management;Energy Conservation Training;Joint Mobility;Strengthening;Functional Mobility Training;Balance Training;Neuromuscular Re-education Plan of Care developed with: Patient TREATMENT INTERVENTIONS: Therapy Diagnosis: Reduced mobility-other Interventions Provided: Therapeutic Exercise (34270);Therapeutic Activity (24122);Gait Training (76211) Therapeutic Exercise (90148) Treatment Minutes: 15 1 unit Skilled Intervention(s): Instruction in standing therapeutic exercise for bilateral heel/toe raises, hip abduction/adduction, marching and hamstring curls x 10 reps each Verbal and tactile cuing provided for correct performance of exercises Therapeutic Activity (57457) Treatment Minutes: 3 0 units Skilled Intervention(s): Instruction in sit to stand technique with proper hand placement and body positioning at edge of bed/chair Instruction in stand to sit technique with lower extremities touching chair/bed and reaching back for surface Discussed with patient possibility of obtaining new hospital bed for home going. Discussed with case aide. Gait Training (69365) Treatment Minutes: 30 2 units Skilled Intervention(s): Instruction in sequencing, gait pattern, reciprocating steps Instruction in correction of gait deviations, cues for upright posture, safety, and diaphragmatic breathing Instruction in stair negotiation, [id number]. Cues provided for safety. Instruction in use of equipment, cues for sequence and pattern Total Timed Code Treatment Minutes: 48 Total Treatment Time (minutes): 48 FUNCTIONAL G CODE: PT 6 Clicks Score: 22 (12/30/17910) $ Mobility: Walking and Moving Around Current Status (G8978): CJ (12/28/17916) $ Mobility: Walking and Moving Around Goal Status (G8979): CI (12/28/17916) Based on clinical assessment and the score on the 6 Clicks Functional Assessment Tool, the G code and corresponding severity modifiers are documented above. SUBJECTIVE: Current Hospital Course: Chart reviewed and no significant medical updates relevant to therapy were noted Patient Report: Patient sitting EOB upon arrival, agreeable and motivated to participate in PT. Patient states, I need a new hospital bed, no one knows how I get one. Patient appropriate for PT per Chantelle VALADEZ. Home Environment Patient Lives With: Family (daughter) Assistance Available: 24 Hour (assist provided by dtr/her fiance,grand dtr) Entry To Home: Stairs;Without Rail Number Of Stairs Into Home: 2 Number Of Stairs To Bed/Bath: 0 (first floor set up) Tub/Shower Type: tub/shower set up with grab bars Laundry: dtr does per laundromat Equipment Owned: Cane;Commode-Bedside;Grab Bars-Shower;Wheeled Walker;Home Oxygen;Other: See Comment (broken hospital bed) Prior Functional Level: Within Functional Limits;Required Assistance;History of Falls Assistance Required With: Cleaning;Laundry;Meals;Self Care;Shopping;Transportation Prior Functional Level Comments: One fall in last 6 month. Patient ind w amb short distances w FWW. Patient sleeps in hospital bed however hospital bed has springs that stick up. Daughter assists with getting her in/out of shower (stands to shower in tub), assists w bathing and dressing as patient needs. Patient is homebound except for MD appointments. Family completes all IADL's OBJECTIVE: CURRENT FUNCTIONAL STATUS: Current Functional Mobility Assist Level Additional Information Rolling Supine to Sit Other: See Comment (patient sitting EOB upon arrival) Sit to Supine Other: See Comment (patient returned to sitting EOB at end of treatment) Scooting Independent (forward/retro in bed) Sit to Stand Stand By Assistance (with FWW) x3 trials from EOB Stand to Sit Stand By Assistance (with FWW) Cues to keep FWW with her at all times Bed to Chair Toilet/Commode Gait Stand By Assistance (reciprocating steps) Gait Device: Wheeled Walker Gait Distance (feet): 300'x1, 64'x1 Stairs Contact Guard Assistance Stairs Device: Rail (holds with both hands on R side) Number of Stairs: 2 Curb Step Car Transfer Gait Deviations Right Lower Extremity: Heel strike during initial stance decreased;Push-off during terminal stance decreased;Step length decreased Gait Deviations Left Lower Extremity: Heel strike during initial stance decreased;Push-off during terminal stance decreased;Step length decreased General Gait Deviations: Jane decreased;Step length decreased;Flexed trunk posture Patient sitting EOB, denies symptoms at this time, call bear and personal belongings in reach, denies any further questions, concerns or needs from REGULATOR ASSEMBLER at this time. Gait belt in place for safety with all functional mobility. RN (Chantelle) aware of patient status. Discussed with patient calling for assistance 100% of the time. Balance: Static Sitting;Dynamic Sitting;Static Standing;Dynamic Standing Static Sitting Balance: Independent Dynamic Sitting Balance: Independent Static Standing Balance: Supervision Dynamic Standing Balance: Stand By Assistance Please see discipline specific clinical documentation flowsheet for complete details for this therapy evaluation/treatment. SIGNATURE: Mary Nieto PTA PATIENT NAME: Luz Baca DATE: December 30, 2017 TIME: 9:28 AM PAGER/CONTACT #: [phone] TAMELA Olson 12/30/2017 10:29 AM Signed CARE MANAGEMENT PROGRESS NOTE SERVICE DATE: 12/30/2017 SERVICE TIME: 10:20am LOS: 7 days EMR reviewed. Scheduled for EGD tomorrow. Updates sent to [facility]. SIGNATURE: TAMELA Olson PATIENT NAME: Luz Baca DATE: December 30, 2017 TIME: 10:28 AM PAGER/CONTACT #: [phone] Chantelle Dobson RN, RN 12/30/2017 1:20 PM Signed Nursing Progress Note Patient Name: Luz Baca Patient Location: [place] [id number] Daily Note: 1245- Patient requesting nystatin oral for thrush. Dr Cesar ramos. This note was completed by: ALLYSON Woodall MD 12/30/2017 1:38 PM Signed INFECTIOUS DISEASE PROGRESS NOTE Patient Name: Luz Baca Date: 12/30/2017 ASSESSMENT: 1. Bibasilar pneumonia, concern is for aspiration and gram- negative component due to her recent hospitalization. MRSA nasal swab is negative. 2. Leukocytosis, likely due to #1. 3. Acute on chronic respiratory failure, which is improved likely due to #1. 4. Severe COPD. 5. Multiple antibiotic allergies. 6. Thrombocytopenia, which appears to be chronic. 7. Chronic kidney disease stage 4 8. Suspected pharyngeal and esophageal phase dysphagia + esophageal dilation ?? achalasia PLAN: Continue meropenem Await EGD per GI INTERVAL HISTORY: ROS done with pt/RN and negative unless stated. No fevers chills nausea vomiting diarrhea. less cough and shortness of breath. Seen by GI. Rev esophagogram. MEDICATIONS: reviewed. Current hospital medications: [START ON 12/31/2017] NaCl 0.9% iv infusion 100 mL/hr INTRAVENOUS (PACU) CONTINUOUS nystatin 5 mL oral liquid (MYCOSTATIN) 5 mL ORAL QID furosemide 40 mg tab(s) (LASIX) 40 mg ORAL DAILY meropenem 1 g in D5W 100 mL MB+ (MERREM) 1 g INTRAVENOUS q 12 H predniSONE 20 mg tab(s) (DELTASONE) 20 mg ORAL DAILY dextrose 40 % 15 g 15 g ORAL PRN glucagon 1 mg injection (GLUCAGEN) 1 mg INTRAMUSCULAR PRN dextrose 50% in water 25 mL syringe 12.5 g INTRAVENOUS PRN simvastatin 40 mg tab(s) (ZOCOR) 40 mg ORAL AT BEDTIME gabapentin 600 mg cap(s) (NEURONTIN) 600 mg ORAL BID ipratropium-albuterol 3 mL nebulizer solution (DUONEB) 3 mL INHALATION q 4 H while awake colchicine 0.6 mg tab(s) 0.6 mg ORAL DAILY insulin lispro 10 Units injection (rapid acting) (HumaLOG) 10 Units SUBCUTANEOUS TID w MEALS insulin glargine 45 Units injection (long acting) (LANTUS) 45 Units SUBCUTANEOUS DAILY (8 AM) insulin glargine 30 Units injection (long acting) (LANTUS) 30 Units SUBCUTANEOUS AT BEDTIME guaiFENesin-dextromethorphan 100-10 mg/5 mL 5-10 mL oral liquid (ROBITUSSIN DM) 5-10 mL ORAL q 6 H PRN potassium chloride ER 10 mEq tab(s) (K-DUR, KLOR-CON) 10 mEq ORAL DAILY spironolactone 25 mg tab(s) (ALDACTONE) 25 mg ORAL DAILY pantoprazole DR 40 mg tab(s) (PROTONIX) 40 mg ORAL DAILY (6 AM) isosorbide mononitrate ER 30 mg tab(s) (IMDUR) 30 mg ORAL DAILY nitroglycerin sublingual 0.4 mg tab(s) (NITROQUICK) 0.4 mg SUBLINGUAL q 5 MIN PRN 0.9% NaCl 3-5 mL 3-5 mL INTRAVENOUS q 12 H benzonatate 100 mg cap(s) (TESSALON PERLE) 100 mg ORAL TID insulin lispro injection (rapid acting) (HumaLOG) SUBCUTANEOUS w MEALS insulin lispro injection (rapid acting) (HumaLOG) SUBCUTANEOUS AT BEDTIME PHYSICAL EXAM: Vital signs: BP 114/66 Pulse 61 Temp 36.7 ?C (98.1 ?F) (Oral) Resp 18 Ht 172.7 cm (5' 8) Wt 105.5 kg (232 lb 9.4 oz) SpO2 95% BMI 35.36 kg/m2 General: alert, oriented, NAD Lungs: bilaterally Coarse breath sounds better Heart: regular rate and rhythm Abdomen: soft, non tender, non distended, BS+ Extremities: no swollen joints Skin: no rash IV sites - wnl Lab data: reviewed Recent Labs 12/30/17 0345 12/29/17 0312 12/28/17 0309 WBC 10.16 9.15 9.78 HB 11.9 12.0 12.8 PLT 104* 104* 112* NA 142 140 141 K 5.4* 5.1 5.1 CO2 34* 36* 35* BUN 70* 65* 70* CREAT 1.46* 1.52* 1.61* Microbiology data: reviewed Imaging data: reviewed Esophagogram - Esophagus very dilated with no apparent primary peristaltic wave. Did appear to be some narrowing at the gastroesophageal junction. ? Correlation with endoscopy recommended Max Reynolds MD Pager: Peyman Guerrero MD 12/30/2017 2:23 PM Signed HOSPITAL MEDICINE PROGRESS NOTE Name: Luz Baca SERVICE DATE: 12/30/2017 SERVICE TIME: 2:15 PM [place] [facility] [id number] Hospital Medicine/Primary Attending: Peyman ugerrero MD NIGHT COVERAGE BETWEEN 5.30P-7.30A Page [id number] ASSESSMENT AND PLAN HCAP (healthcare-associated pneumonia), suspected aspiration PNA with episodes of choking food/liquids Feels slowly improving, c/o mild sob with activity which seems to be chronic in nature - started with IV Vanco and Aztreonam initially and changed to Cefepime later - blood cx- no growth, sputum culture- Few Normal respiratory mitra present , negative nasal MRSA - consulted ID due to recurrent admission/HCAP for antibiotic choice, changed to Meropenum IV - consulted speech therapy, suspicion of aspiration PNA - MBS done - poor esophageal emptying while in an upright posture; Retrograde flow is noted below the level of the pharyngoesophageal segment. no occurrence of laryngeal penetration /aspiration is noted at this time. - Esophagogram- Esophagus very dilated with no apparent primary peristaltic wave. ?Did appear to be some narrowing at the gastroesophageal junction. Correlation with endoscopy recommended. No aspiration was seen - consulted GI; plan for EGD in am - continue duoneb q4hr + prn - Mucinex BID - aspiration precautions - Nursing Recommendations: Reinforce use of swallowing strategies;Utilize bed in chair position - Diet Recommendations: Regular Consistency;Thin liquids Continue to hold Eliquis and Aspirin (last dose 12/29) for EGD in am Acute on chronic combined systolic and diastolic CHF (congestive heart failure) Acute diastolic heart failure (LVEF 50%) HOCM- Status post septal myomectomy at the time of CABG 2003 CAD Status post CABG ?2, 07/18/04, VU to LAD, SVG to PDA; PCI ?6 RCA, 2013 PCI ?3 2015 Status post myocardial perfusion imaging stress test 08/11/17 with possible prior apical infarct and no ischemia, EF 50%. ICD - most likely some fluid overload - Pro BNP 2600 - cont with fluid restriction - Last Echo 12/21/2017 LVEF 50% with Grade 3 diastolic dysfunction - St Rob AICD / PM - minimal rate at 60 - nml function on check today. Result on chart. - negative 4.8 liter so far - consulted Dr. Yeung. - continue spironolactone - continue statin - continue apixaban for anticoagulation - resumed aspirin due to multi-vessel PCI in the past - changed lasix to 40 mg po daily - continue current management plan, monitor for fluid overload, I/O ? She can follow up as an outpatient with Dr. Cardona on discharge ? Acute on chronic respiratory failure with hypoxia? - chronic home O2 with 2.5 l/min NC - supplement as needed - back to base line ? COPD with acute exacerbation? - Given on dose in ER with Solumedrol - cont with treatment as above - wean steroids slowly ? Atrial fibrillation - Not on any BB - Cont Eliquis - Rate controlled - on telemetry monitoring noticed to be low 40's in HR - PM/ICD checked, normal function ?? Diabetes mellitus due to underlying condition, uncontrolled, with stage 3 chronic kidney disease, with long-term current use of insulin On amaryl and sitagliptan Will start sliding scale option 1 coverage Follow accuchecks HgbA1c: >15 (Oct 2707/2018) ?? Coronary artery disease H/O of CABGx2 (DEBORAH-LAD, SVG-PDA ) in 2003 On simvastatin, ASA ?? Essential hypertension Controlled, monitor ?? GERD (gastroesophageal reflux disease) On nexium - protonix here ?? Hyperlipidemia On simvastatin LDL 61 ?? Sleep apnea Should wears CPAP at home But not used for years Last sleep study in possible 2008 ?? Obesity Diet/exercise/weightloss discussed with patient ? SUBJECTIVE INTERVAL HPI: Feels improving slowly, no fever, chills, cp nor palpitations. Stable vitals No overnight issues Plan for EGD in am MEDICATIONS: Reviewed Current Facility-Administered Medications: [START ON 12/31/2017] NaCl 0.9% iv infusion 100 mL/hr INTRAVENOUS (PACU) CONTINUOUS Mandy (Audio Production Engineer) [place] nystatin 5 mL oral liquid (MYCOSTATIN) 5 mL ORAL QID Peyman Cesar 5 mL at 12/30/17 1332 furosemide 40 mg tab(s) (LASIX) 40 mg ORAL DAILY Peyman Cesar 40 mg at 12/30/17 0748 meropenem 1 g in D5W 100 mL MB+ (MERREM) 1 g INTRAVENOUS q 12 H Max Rodolfo 1 g at 12/30/17 0744 predniSONE 20 mg tab(s) (DELTASONE) 20 mg ORAL DAILY Radha Loomis Md Thuestad 20 mg at 12/30/17 0747 dextrose 40 % 15 g 15 g ORAL PRN Leandro Kauffman MD Or glucagon 1 mg injection (GLUCAGEN) 1 mg INTRAMUSCULAR PRN Leandro Kauffman MD Or dextrose 50% in water 25 mL syringe 12.5 g INTRAVENOUS PRN Leandro Kauffman MD simvastatin 40 mg tab(s) (ZOCOR) 40 mg ORAL AT BEDTIME Radha Loomis Md Thuestad 40 mg at 12/29/172009 gabapentin 600 mg cap(s) (NEURONTIN) 600 mg ORAL BID Radha Adams) Thuestad 600 mg at 12/30/17 0746 ipratropium-albuterol 3 mL nebulizer solution (DUONEB) 3 mL INHALATION q 4 H while awake Radha Adams) Thuestad 3 mL at 12/30/17 1037 colchicine 0.6 mg tab(s) 0.6 mg ORAL DAILY Radha Adams) Thuestad 0.6 mg at 12/30/17 0746 insulin lispro 10 Units injection (rapid acting) (HumaLOG) 10 Units SUBCUTANEOUS TID w MEALS Radha Adams) Thuestad 10 Units at 12/30/17 1217 insulin glargine 45 Units injection (long acting) (LANTUS) 45 Units SUBCUTANEOUS DAILY (8 AM) Radha Adams) Thuestad 45 Units at 12/30/17 0745 insulin glargine 30 Units injection (long acting) (LANTUS) 30 Units SUBCUTANEOUS AT BEDTIME Radha Aadms) Thuestad 30 Units at 12/29/172009 guaiFENesin-dextromethorphan 100-10 mg/5 mL 5-10 mL oral liquid (ROBITUSSIN DM) 5-10 mL ORAL q 6 H PRN Radha Adams) Thuestad 10 mL at 12/30/17 0523 potassium chloride ER 10 mEq tab(s) (K-DUR, KLOR-CON) 10 mEq ORAL DAILY Radha Adams) Thuestad 10 mEq at 12/30/17 0747 spironolactone 25 mg tab(s) (ALDACTONE) 25 mg ORAL DAILY Radha Adams) Thuestad 25 mg at 12/30/[address] 40 mg tab(s) (PROTONIX) 40 mg ORAL DAILY (6 AM) Radha Adams) Thuestad 40 mg at 12/30/17 0523 isosorbide mononitrate ER 30 mg tab(s) (IMDUR) 30 mg ORAL DAILY Radha Adams) Thuestad 30 mg at 12/30/17 0746 nitroglycerin sublingual 0.4 mg tab(s) (NITROQUICK) 0.4 mg SUBLINGUAL q 5 MIN PRN Radha Mazauestad 0.9% NaCl 3-5 mL 3-5 mL INTRAVENOUS q 12 H Radha Adams) Thuestad 5 mL at 12/30/17 0744 benzonatate 100 mg cap(s) (TESSALON PERLE) 100 mg ORAL TID Hareesh Singam 100 mg at 12/30/17 1216 insulin lispro injection (rapid acting) (HumaLOG) SUBCUTANEOUS w MEALS Caroline (Audio Production Engineer) Garcia 8 Units at 12/30/17 0746 insulin lispro injection (rapid acting) (HumaLOG) SUBCUTANEOUS AT BEDTIME Caroline (Audio Production Engineer) Garcia 2 Units at 12/29/172010 OBJECTIVE PHYSICAL EXAM: BP 114/66 Pulse 61 Temp (Src) 98.1 (Oral) Resp 18 Ht 5' 8 (1.73m) Wt 232 lb 9.4 oz (105.5kg) SpO2 95% BMI 35.37 kg/(m2). GENERAL: Alert, no distress, cooperative, obese SKIN: Skin color, texture, turgor normal. No rashes or lesions. EYES: PERRLA, EOMI OROPHARYNX: Lips, mucosa, and tongue normal. Teeth and gums normal. Oropharynx normal. NECK: No jugulovenous distention, No carotid bruits, Carotid pulse normal contour, Supple LUNGS: Lungs clear to auscultation, Good diaphragmatic excursion CARDIAC: Normal S1 and S2; no rubs, murmurs, or gallops ABDOMEN: Abdomen soft, non-tender, BS normal, No masses or organomegaly EXTREMITIES: Extremities normal, no deformities, edema, clubbing or skin discoloration. Good capillary refill., No ulcers NEURO: Reflexes normal and symmetric. Sensation grossly intact, Cranial nerves II-XII intact PULSES: 2+ radial, 2+ carotid DATA: Diagnostic tests reviewed for today's visit: CBC, Coags, BMP, Mg, Phos Recent Labs 12/30/17 0345 12/29/17 0312 12/28/17 0309 WBC 10.16 9.15 9.78 HB 11.9 12.0 12.8 HCT 39.3 38.7 42.0 PLT 104* 104* 112* NA 142 140 141 K 5.4* 5.1 5.1 CHLOR 101 99 99 CO2 34* 36* 35* BUN 70* 65* 70* CREAT 1.46* 1.52* 1.61* GLUC 203* 145* 161* CA 8.8 8.3* 9.2 MG 2.6* 2.5* 2.7* VTE Prophylaxis: Patient is already anti-coagulated. Disposition: Home with [facility] PT Plan of care discussed with: Patient and RN SIGNATURE: Peyman guerrero MD DATE: December 30, 2017 TIME: 2:23 AM TAMELA Olson 12/30/2017 3:50 PM Signed CARE MANAGEMENT PROGRESS NOTE SERVICE DATE: 12/30/2017 SERVICE TIME: 3:15PM LOS: 7 days Patient requesting new hospital bed. Currently has bed that was obtained while she was living in [place] in 2013. Patient states it is broken. RX obtained from and referral sent to [facility]. Awaiting response. SIGNATURE: TAMELA Olson PATIENT NAME: Luz Baca DATE: December 30, 2017 TIME: 3:25 PM PAGER/CONTACT #: [phone] Toñito River MD 12/31/2017 7:04 AM Signed ANESTHESIOLOGY DAY OF SURGERY NOTE SERVICE DATE: 12/31/2017 SERVICE TIME: 7:04 AM : 1940 Procedure(s) (LRB): EGD (N/A) Surgeon(s): Mara Hernandez Estimated body mass index is 35.36 kg/(m2) as calculated from the following: Height as of this encounter: 172.7 cm (5' 8). Weight as of this encounter: 105.5 kg (232 lb 9.4 oz). Most recent hematocrit and potassium results: Hematocrit 40.5 12/31/2017 Potassium 5.1 12/31/2017 ANES DOS/PREOP NOTE: Vitals: 12/30/17 2330 12/31/17 0446 12/31/17 0559 12/31/17 0608 BP: 141/68 136/61 Pulse: 63 60 64 62 Resp: Temp: 36.3 ?C (97.3 ?F) 36.4 ?C (97.5 ?F) TempSrc: Oral Oral SpO2: 100% 99% 100% Weight: Height: ACTIVE PROBLEM LIST Hocm (Hypertrophic Obstructive Cardiomyopathy) ([facility]) Svt (Supraventricular Tachycardia) ([facility]) Carotid artery disease ([facility]) Cad (Coronary Artery Disease) Essential Hypertension Hyperlipidemia Copd (Chronic Obstructive Pulmonary Disease) ([facility]) Sleep Apnea Hh (Hiatus Hernia) Gerd (Gastroesophageal Reflux Disease) Renal Insufficiency Arthritis Numbness and Tingling of Right Leg Depression Diabetes (Hcc) Atrial Fibrillation ([facility]) Diabetes Mellitus Due to Underlying Condition, Uncontrolled, With Stage 3 Chronic Kidney Disease, With Long-Term Current Use of Insulin ([facility]) Summary Dyspnea Heart Failure, Systolic, Acute (Hcc) Obesity Gout Ckd (Chronic Kidney Disease) Stage 3, Gfr 30-59 Ml/Min Pacemaker Ckd (Chronic Kidney Disease), Stage IV (Hcc) Acute Exacerbation of Chf (Congestive Heart Failure) ([facility]) Acute On Chronic Combined Systolic and Diastolic Chf (Congestive Heart Failure) ([facility]) Elevated Troponin Copd With Acute Exacerbation (Hcc) Acute On Chronic Respiratory Failure With Hypoxia ([facility]) Hcap (Healthcare-Associated Pneumonia) PAST MEDICAL HISTORY Diagnosis Date - Arthritis - Atrial fibrillation ([facility]) - CAD (coronary artery disease) stents x9, defibrillator, CABG. Seeing Dr. Cardona - Cardiac defibrillator in place - Cardiomegaly - Carotid artery disease ([facility]) left - CKD (chronic kidney disease), stage IV ([facility]) - COPD (chronic obstructive pulmonary disease) ([facility]) Dr. Cruz - Depression - Diabetes ([facility]) - Diabetic neuropathy ([facility]) - GERD (gastroesophageal reflux disease) - Gout - HH (hiatus hernia) - HOCM (hypertrophic obstructive cardiomyopathy) ([facility]) - HTN (hypertension) - Hyperlipidemia - Morbid obesity with BMI of 40.0-44.9, adult ([facility]) - Pacemaker - Pneumonia h/o pneumonia/bronchitis - Renal insufficiency 2003 post op - Sleep apnea 2011 not on CPAP, unable to tolerate mask 02/2017 - SVT (supraventricular tachycardia) ([facility]) NSVT and questionable VT in 2003 post op PAST SURGICAL HISTORY Procedure Laterality Date - PAST SURGICAL HISTORY OF 07/18/2004 Septal myectomy and CABG x2 (DEBORAH-LAD, SVG-PDA). - PAST SURGICAL HISTORY OF left breast nodule removed - PAST SURGICAL HISTORY OF hysterectomy - PAST SURGICAL HISTORY OF perianal abscess drained - PAST SURGICAL HISTORY OF cholecystectomy - PAST SURGICAL HISTORY OF skin lesions removed FAMILY HISTORY Problem Relation Age of Onset - Hypertension Mother living at age 93, HTN - Heart Failure Mother [place] - Cancer Father age 71, lung cancer Social History: Social History Substance Use Topics - Smoking status: Former Smoker Packs/day: 2.50 Years: 43.00 Types: Cigarettes Start date: 1961 Quit date: 07/07/2004 - Smokeless tobacco: Never Used - Alcohol use No No current facility-administered medications on file prior to encounter. Current Outpatient Prescriptions on File Prior to Encounter: spironolactone (ALDACTONE) 25 mg tablet Take 1 tablet by mouth once daily. ipratropium-albuterol (DUONEB) 0.5 mg-3 mg(2.5 mg base)/3 mL nebu Inhale 3 mL as instructed every 4 hours as needed. guaiFENesin-dextromethorphan (ROBITUSSIN DM) 100-10 mg/5 mL syrup Take 5-10 mL by mouth every 6 hours as needed for Cough. nitroglycerin sublingual (NITROQUICK) 0.4 mg SL tablet Dissolve 1 tablet under the tongue every 5 minutes as needed. albuterol HFA (VENTOLIN HFA) 90 mcg/actuation inhaler Inhale 2 Puffs as instructed every 4 hours as needed. OXYGEN, HOME THERAPY, Inhale 2.5 L/min as instructed as directed. albuterol (PROVENTIL) 5 mg/mL nebu Inhale 0.5 mL as instructed one time only for 1 dose. 1 DOSE NOW - BACK OFFICE. PLACE 0.5 ML PER DROPPER AND 2.5 ML OF NORMAL SALINE INTO RESERVOIR. gabapentin (NEURONTIN) 300 mg capsule Take 2 capsules by mouth three times daily for 30 days. (Patient taking differently: Take 600 mg by mouth twice daily. ) Current Facility-Administered Medications: nystatin 5 mL oral liquid (MYCOSTATIN) 5 mL ORAL QID Peyman Cesar 5 mL at 12/30/172117 furosemide 40 mg tab(s) (LASIX) 40 mg ORAL DAILY Peyman Cesar 40 mg at 12/30/17747 meropenem 1 g in D5W 100 mL MB+ (MERREM) 1 g INTRAVENOUS q 12 H Max Rodolfo 1 g at 12/30/172114 predniSONE 20 mg tab(s) (DELTASONE) 20 mg ORAL DAILY Radha Loomis Md Thuestad 20 mg at 12/30/17 0747 dextrose 40 % 15 g 15 g ORAL PRN Leandro Kauffman MD Or glucagon 1 mg injection (GLUCAGEN) 1 mg INTRAMUSCULAR PRN Leandro Kauffman MD Or dextrose 50% in water 25 mL syringe 12.5 g INTRAVENOUS PRN Leandro Kauffman MD simvastatin 40 mg tab(s) (ZOCOR) 40 mg ORAL AT BEDTIME Radha Loomis Md Thuestad 40 mg at 12/30/172117 gabapentin 600 mg cap(s) (NEURONTIN) 600 mg ORAL BID Radha Adams) Thuestad 600 mg at 12/30/172117 ipratropium-albuterol 3 mL nebulizer solution (DUONEB) 3 mL INHALATION q 4 H while awake Radha Adams) Thuestad 3 mL at 12/31/17 0559 colchicine 0.6 mg tab(s) 0.6 mg ORAL DAILY Radha Adams) Thuestad 0.6 mg at 12/30/17 0746 insulin lispro 10 Units injection (rapid acting) (HumaLOG) 10 Units SUBCUTANEOUS TID w MEALS Radha Adams) Thuestad 10 Units at 12/30/17 1659 insulin glargine 45 Units injection (long acting) (LANTUS) 45 Units SUBCUTANEOUS DAILY (8 AM) Radha Adams) Thuestad 45 Units at 12/30/17 0745 insulin glargine 30 Units injection (long acting) (LANTUS) 30 Units SUBCUTANEOUS AT BEDTIME Radha Adams) Thuestad 30 Units at 12/30/17 211 guaiFENesin-dextromethorphan 100-10 mg/5 mL 5-10 mL oral liquid (ROBITUSSIN DM) 5-10 mL ORAL q 6 H PRN Radha Adams) Thuestad 10 mL at 12/30/17 0523 potassium chloride ER 10 mEq tab(s) (K-DUR, KLOR-CON) 10 mEq ORAL DAILY Radha Adams) Thuestad 10 mEq at 12/30/17 0747 spironolactone 25 mg tab(s) (ALDACTONE) 25 mg ORAL DAILY Radha Adams) Thuestad 25 mg at 12/30/[address] 40 mg tab(s) (PROTONIX) 40 mg ORAL DAILY (6 AM) Radha Adams) Thuestad 40 mg at 12/30/17 0523 isosorbide mononitrate ER 30 mg tab(s) (IMDUR) 30 mg ORAL DAILY Radha Adams) Thuestad 30 mg at 12/30/17 0746 nitroglycerin sublingual 0.4 mg tab(s) (NITROQUICK) 0.4 mg SUBLINGUAL q 5 MIN PRN Radha Adams) Thuestad 0.9% NaCl 3-5 mL 3-5 mL INTRAVENOUS q 12 H Radha Adams) Thuestad 5 mL at 12/30/17 213 benzonatate 100 mg cap(s) (TESSALON PERLE) 100 mg ORAL TID Hareesh Singam 100 mg at 12/30/17 2118 insulin lispro injection (rapid acting) (HumaLOG) SUBCUTANEOUS w MEALS Caroline (Audio Production Engineer) Garcia 8 Units at 12/30/17 0746 insulin lispro injection (rapid acting) (HumaLOG) SUBCUTANEOUS AT BEDTIME Caroline (Audio Production Engineer) Garcia 4 Units at 12/30/17 2117 Allergies: ALLERGIES Allergen Reactions - Bactrim [Sulfametho* Other: See Comments My throat swells up. - Latex Rash, Itching Itching and welts. No wheezing or shortness of breath. - Penicillins Rash, Itching Tolerated ceftriaxone during 11/2017 admission and cefepime during 12/2017 admission - Tetracycline Rash, GI Upset Emesis and diarrhea. - Atorvastatin Rash - Codeine Other: See Comments Numbness - Dilaudid [Hydromorp* Mental Status Change - Meperidine - Pentazocine - Pioglitazone Unknown - Propoxyphene DOS EXAM: Adequate NPO status: Yes Anesthetic risks, benefits, alternatives, personnel and consent discussed: Yes Patient agrees to proceed: Yes Previous Anesthesia: No history of adverse event. Airway Assessment: MP 2; Neck ROM: Full ROM without neurologic symptoms; Airway Evaluation: No significant abnormalities Symptoms of Sleep Apnea: None Dentition: Teeth intact Additional Physical Exam: Lungs: Patient health status unchanged since recent history and physical. See history and physical for exam findings. Cardiac: Patient health status unchanged since recent history and physical. See history and physical for exam findings. Additional Pertinent Findings: N/A Blood Products: Not anticipated for this procedure. Anesthetic Plan: MAC with Sedation Pain Management Plan: Parenteral or Oral ASA Class: 4 Other Medical Problems: atrial fibrillation, CAD s/p stenting on Eliquis and Aspirin, diabetes, HTN, HH, hypertrophic obstructive cardiomyopathy, CKD - stage IV, obesity and sleep apnea Tyrell Carpenterski will do the case himself I have interviewed and examined the patient. I have reviewed the medical record and/or the pre-anesthesia evaluation, pertinent labs, and test results. Significant changes in the patient's condition since the History and Physical, not otherwise documented in primary service progress notes: No This contains updated information obtained within 48 hours of Surgery/Procedure. SIGNATURE: Toñito River MD PATIENT NAME: Luz Baca DATE: December 31, 2017 TIME: 7:04 AM CSN: [id number] PROGRESS Observed: 12/21/2017 Status: COMPLETED Source: [place] 3:36 PM [facility] REPOSITORY HNO ID: [id number] Author: Jameson Kamara Service: (none) Author Type: Physician Type: Progress Notes Filed: 12/21/2017 3:36 PM Note Text: Thank you! PROGRESS Observed: 12/21/2017 Status: COMPLETED Source: [place] 2:54 PM [facility] REPOSITORY HNO ID: [id number] Author: Remi Briseno) Brent Service: (none) Author Type: Registered Nurse Type: Progress Notes Filed: 12/21/2017 3:08 PM Note Text: PRIMARY CARE COORDINATION FOLLOW-UP NOTE Provider Action/FYI Discussed below with PCP. PCP asked PCC to call food and beverage operations manager to inform of diuretics. TC nia Dave at Dr. Mcnally' office, left message pt is in CHF and Dr. Cardona restarted diuretics. Call PCC if any questions Patient identified by name and date of . YES Spoke to patient and daughter, Octavia Concerns: Discussed pt seeing Noe Adkins yesterday and PA did not feel pt's problems were due to her lungs because her lung tests were good. PA spoke with Pete Cardona and pt had ECHO today and saw Dr. Cardona. Pt and daughter state Dr. Cardona feels pt's problems are due to both her heart and lungs and started pt on: spironolactone (ALDACTONE) 25 mg 1 tablet by mouth once daily and furosemide (LASIX) 40 mg 60 mg in the AM and 40 mg in the PM. Daughter states she is very concerned about pt's kidneys. Asked if Dr. Cardona was checking kidney function soon, states yes, he gave me a script for blood work to have home health nurse draw later this week. Watermelon Inspector plan for next outreach: Will follow up one week Signature Remi Kennedy RN December 21, 2017 PROGRESS Observed: 12/21/2017 Status: COMPLETED Source: [place] 11:36 AM [facility] REPOSITORY HNO ID: [id number] Author: Aren Cardona Service: (none) Author Type: Physician Type: Progress Notes Filed: 12/21/2017 1:02 PM Note Text: PERTINENT CARDIAC HISTORY ASHD - CABGx3 2003, PCIx6 RCA 2013, PCIx3 2014 HCM - septal myectomy 2003 HTN DM HL MARLA - unable to tolerate CPAP PAF CRF CHF - systolic, DAMION-I/ARB intolerance (CRF) Cardiomyopathy - ischemic, ICD 2015, revised 11/2016, beta lenny intolerance ADHERENCE TO GUIDELINES DAMION-I or ARB for HF with prior LVEF<40 (NQF 0081) - CRF ASA or Plavix for ASHD (NQF 0067) - restart Beta lenny for ASHD with prior NE or prior LVEF<40 (NQF 0070) - COPD Beta lenny for HF with prior LVEF<40 (NQF 0083) - COPD DAMION-I or ARB for ASHD with DM or prior LVEF<40 (NQF 0066) - CRF Statin therapy for ASHD or FHL or DM - met BMI documented and plan if >25 (NQF 0421) - lifestyle recommendation form Tobacco use screening and referral (NQF 0028) - lifestyle recommendation form Recommendation for whole food, plant based diet - lifestyle recommendation form CLINICAL IMPRESSION/PLAN: Luz Baca has had an exacerbation of her heart failure, concomitant with an acute respiratory infection. She is making slow progress on the respiratory front. For the time being, I have advised her to increase Lasix to 60 milligrams in the morning and 40 in the afternoon and to restart Aldactone at 25 milligrams daily. We may be able to mobilize a few pounds of fluid, which will likely help her respiratory status. We need to be cautious not to make her prerenal. She likely has cardiorenal syndrome. She will have basic profile done within 72 hours. This will be drawn by home health. It is unlikely that she has high-grade proximal coronary disease, as her recent stress test showed no reversibility. She's been encouraged to use nitroglycerin liberally. We are unable to add beta lenny at this time due to her acute respiratory decompensation. I would like to hold open this option for the future. I will see her next month as originally scheduled. Written and verbal health teaching given to patient, patient verbalizes understanding and agrees with treatment plan. This note was generated using Psonar voice recognition system, and there may be some incorrect words, spellings, and punctuation that were not noted in checking the note before saving. DIAGNOSIS FOR VISIT: ASHD CHF PAF HISTORY OF PRESENT ILLNESS Luz Baca returns for problem follow-up visit. She was recently hospitalized with acute exacerbation of COPD and decompensated heart failure. She had a slight troponin leak. She has been taken off Aldactone and Norvasc by nephrology due to concerns about renal function. Family reports that it was after the discontinuation of Aldactone that she began having more shortness of breath. She's had some intermittent chest discomfort of various types . This is usually sharp but occasionally pressure-like. She has taken nitroglycerin and gets good response. There is no associated diaphoresis or nausea . There is no relation to activity. Her breathing is worse than before and she's had more edema. She denies syncope. She's had no TIAs, amaurosis or claudication. ALLERGIES: ALLERGIES Allergen Reactions - Latex Rash, Itching Itching and welts. No wheezing or shortness of breath. - Penicillins Rash, Itching Tolerated ceftriaxone during 11/2017 admission - Tetracycline GI Upset Emesis and diarrhea. - Atorvastatin Unknown - Bactrim [Sulfametho* Unknown I don't remember. - Codeine Unknown - Dilaudid [Hydromorp* Unknown - Meperidine - Pentazocine - Pioglitazone Unknown - Propoxyphene CURRENT OUTPATIENT MEDICATIONS: insulin glargine (LANTUS SOLOSTAR U-100 INSULIN) 100 unit/mL (3 mL) inpn Give 50 units subcutaneously in the morning and 50 units at bedtime. ELIQUIS 5 mg tab(s) TAKE ONE TABLET BY MOUTH TWICE DAILY nystatin (MYCOSTATIN) 100,000 unit/mL suspension Take 2 mL by mouth four times daily for 7 days. SWISH AND SWALLOW 2 ML 4 TIMES PER DAY. ipratropium-albuterol (DUONEB) 0.5 mg-3 mg(2.5 mg base)/3 mL nebu Inhale 3 mL as instructed every 4 hours as needed. benzonatate (TESSALON PERLE) 100 mg capsule Take 1 capsule by mouth three times daily for 7 days. predniSONE (DELTASONE) 10 mg tablet Take 40 mg daily 3 days then 30 mg daily 3 days then 20 mg daily 3 days then 10 mg daily 3 days guaiFENesin-dextromethorphan (ROBITUSSIN DM) 100-10 mg/5 mL syrup Take 5-10 mL by mouth every 6 hours as needed for Cough. pantoprazole DR (PROTONIX) 40 mg tablet Take 1 tablet by mouth twice daily before meals (0600/1600). colchicine 0.6 mg capsule Take 0.6 mg by mouth once daily. Two tablets in am and 1 tablet one hour later repeat this process for 5 days insulin aspart U-100 (NOVOLOG FLEXPEN U-100 INSULIN) 100 unit/mL inpn Inject 15 Units subcutaneously three times daily with meals. furosemide (LASIX) 40 mg tablet Take 1 tablet by mouth once daily nitroglycerin sublingual (NITROQUICK) 0.4 mg SL tablet Dissolve 1 tablet under the tongue every 5 minutes as needed. potassium chloride ER (K-DUR, KLOR-CON) 10 mEq tablet TAKE ONE TABLET BY MOUTH DAILY WITH BREAKFAST gabapentin (NEURONTIN) 300 mg capsule Take 2 capsules by mouth three times daily for 30 days. albuterol HFA (VENTOLIN HFA) 90 mcg/actuation inhaler Inhale 2 Puffs as instructed every 4 hours as needed. simvastatin (ZOCOR) 40 mg tablet TAKE ONE TABLET BY MOUTH ONCE DAILY AT BEDTIME OXYGEN, HOME THERAPY, Inhale 2.5 L/min as instructed as directed. ipratropium (ATROVENT) 0.02 % nebulizer solution Use 0.5 mg via nebulizer four times daily. isosorbide mononitrate ER (IMDUR) 30 mg 24 hr tablet Take 1 tablet by mouth twice daily. albuterol (PROVENTIL) 5 mg/mL nebu Inhale 0.5 mL as instructed one time only for 1 dose. 1 DOSE NOW - BACK OFFICE. PLACE 0.5 ML PER DROPPER AND 2.5 ML OF NORMAL SALINE INTO RESERVOIR. budesonide-formoterol (SYMBICORT) 160-4.5 mcg/actuation inhaler Inhale 2 Puffs as instructed twice daily. tiotropium bromide (SPIRIVA RESPIMAT) 2.5 mcg/actuation mist Inhale 2 Puffs as instructed once daily. PAST MEDICAL HISTORY Diagnosis Date - Arthritis - Atrial fibrillation (HCC) - CAD (coronary artery disease) stents x9, defibrillator, CABG. Seeing Dr. Cardona - Cardiac defibrillator in place - Cardiomegaly - Carotid artery disease (HCC) left - CKD (chronic kidney disease), stage IV ([facility]) - COPD (chronic obstructive pulmonary disease) ([facility]) Dr. Cruz - Depression - Diabetes ([facility]) - Diabetic neuropathy ([facility]) - GERD (gastroesophageal reflux disease) - Gout - HH (hiatus hernia) - HOCM (hypertrophic obstructive cardiomyopathy) (HCC) - HTN (hypertension) - Hyperlipidemia - Morbid obesity with BMI of 40.0-44.9, adult (HCC) - Pacemaker - Pneumonia h/o pneumonia/bronchitis - Renal insufficiency 2003 post op - Sleep apnea 2011 not on CPAP, unable to tolerate mask 02/2017 - SVT (supraventricular tachycardia) ([facility]) NSVT and questionable VT in 2003 post op PAST SURGICAL HISTORY Procedure Laterality Date - PAST SURGICAL HISTORY OF 07/18/2004 Septal myectomy and CABG x2 (DEBORAH-LAD, SVG-PDA). - PAST SURGICAL HISTORY OF left breast nodule removed - PAST SURGICAL HISTORY OF hysterectomy - PAST SURGICAL HISTORY OF perianal abscess drained - PAST SURGICAL HISTORY OF cholecystectomy - PAST SURGICAL HISTORY OF skin lesions removed FAMILY HISTORY Problem Relation Age of Onset - Hypertension Mother living at age 93, HTN - Heart Failure Mother [place] - Cancer Father age 71, lung cancer Social History Marital status: Spouse name: Years of education: Number of children: Social History Main Topics Smoking status: Former Smoker Packs/day: 2.50 Years: 43.00 Types: Cigarettes Start date: 1961 Quit date: 07/07/2004 Smokeless status: Never Used Alcohol use: No Drug use: No Other Topics Concern Caffeine Concern Yes Comment:coffee 1 cup daily Special Diet No Comment:Regular Exercise No Comment:no unable, due to SOB x several months. REVIEW OF SYSTEMS: General: No chills, fever, weight loss, night sweats. Respiratory: No productive cough. Cardiac: As noted above. GI: No melena. : No dysuria. Musculoskeletal: No myalgias. PHYSICAL EXAMINATION: S/he is alert and in no distress. VITAL SIGNS: BP 144/86 Pulse 64 Ht 5' 8 (1.73m) Wt 224 lb 1.6 oz (101.7kg) BMI 34.08 kg/(m2). SHEENT: Skin is warm and dry. No xanthelasmas appreciated. Pharynx is benign. There is no oral cyanosis. Neck: supple. No adenopathy or thyroid enlargement. Chest: There are diffuse rhonchi. There is moderate expiratory prolongation. Trachea is midline. Air entry is equal. There is no chest wall tenderness. Cardiac: Regular rhythm. S1 and S2 are normal. PMI is nondisplaced. There is a 1/6 systolic ejection murmur. Carotids are brisk without bruits. JVP is less than 10 cm. Abdomen: Soft and nontender. Obesity precludes adequate examination. There are no pulsatile masses or bruits. No liver enlargement. Bowel sounds are active. Extremities: 1 plus chronic brawny edema. Pulses are diminished but symmetrical. No clubbing or cyanosis. No femoral bruits. Neurologic: Grossly normal motor and sensory. S/he is alert and oriented x4. Records from [facility] were reviewed. BNP was quite elevated. Troponin was present. Renal function is stable. Chest x-ray yesterday shows development of a pleural effusion. Recent cardiac studies were reviewed. Echocardiogram was performed today. Image quality is only fair, but LV function appears to be no worse. There is at least moderate pulmonary hypertension. Electronically Signed: Aren Cardona MD December 21, 2017 11:36 AM CC:Jameson Kamara MD CNOV Observed: 12/21/2017 Status: COMPLETED Source: [place] 11:30 AM CLINIC OTHER CAMPUS REPOSITORY Office Visit (AGCARDWST) LUZ BACA ([id number]) 1940 F Date Time Provider Department 12/21/17 11:30 AM AREN CARDONA AGCARDWST During your visit today, we recorded the following information about you: Pulse Blood pressure Weight Height 64/minute 144/86 101.7 kg 1.727 m Aren Cardona MD 12/21/2017 1:02 PM Signed PERTINENT CARDIAC HISTORY ASHD - CABGx3 2003, PCIx6 RCA 2013, PCIx3 2014 HCM - septal myectomy 2003 HTN DM HL MARLA - unable to tolerate CPAP PAF CRF CHF - systolic, DAMION-I/ARB intolerance (CRF) Cardiomyopathy - ischemic, ICD 2015, revised 11/2016, beta lenny intolerance ADHERENCE TO GUIDELINES DAMION-I or ARB for HF with prior LVEFANDlt;40 (NQF 0081) - CRF ASA or Plavix for ASHD (NQF 0067) - restart Beta lenny for ASHD with prior NE or prior LVEFANDlt;40 (NQF 0070) - COPD Beta lenny for HF with prior LVEFANDlt;40 (NQF 0083) - COPD DAMION-I or ARB for ASHD with DM or prior LVEFANDlt;40 (NQF 0066) - CRF Statin therapy for ASHD or FHL or DM - met BMI documented and plan if ANDgt;25 (NQF 0421) - lifestyle recommendation form Tobacco use screening and referral (NQ 0028) - lifestyle recommendation form Recommendation for whole food, plant based diet - lifestyle recommendation form CLINICAL IMPRESSION/PLAN: Luz Baca has had an exacerbation of her heart failure, concomitant with an acute respiratory infection. She is making slow progress on the respiratory front. For the time being, I have advised her to increase Lasix to 60 milligrams in the morning and 40 in the afternoon and to restart Aldactone at 25 milligrams daily. We may be able to mobilize a few pounds of fluid, which will likely help her respiratory status. We need to be cautious not to make her prerenal. She likely has cardiorenal syndrome. She will have basic profile done within 72 hours. This will be drawn by home health. It is unlikely that she has high-grade proximal coronary disease, as her recent stress test showed no reversibility. She's been encouraged to use nitroglycerin liberally. We are unable to add beta lenny at this time due to her acute respiratory decompensation. I would like to hold open this option for the future. I will see her next month as originally scheduled. Written and verbal health teaching given to patient, patient verbalizes understanding and agrees with treatment plan. This note was generated using Psonar voice recognition system, and there may be some incorrect words, spellings, and punctuation that were not noted in checking the note before saving. DIAGNOSIS FOR VISIT: ASHD CHF PAF HISTORY OF PRESENT ILLNESS Luz Baca returns for problem follow-up visit. She was recently hospitalized with acute exacerbation of COPD and decompensated heart failure. She had a slight troponin leak. She has been taken off Aldactone and Norvasc by nephrology due to concerns about renal function. Family reports that it was after the discontinuation of Aldactone that she began having more shortness of breath. She's had some intermittent chest discomfort of various types . This is usually sharp but occasionally pressure-like. She has taken nitroglycerin and gets good response. There is no associated diaphoresis or nausea . There is no relation to activity. Her breathing is worse than before and she's had more edema. She denies syncope. She's had no TIAs, amaurosis or claudication. ALLERGIES: ALLERGIES Allergen Reactions - Latex Rash, Itching Itching and welts. No wheezing or shortness of breath. - Penicillins Rash, Itching Tolerated ceftriaxone during 11/2017 admission - Tetracycline GI Upset Emesis and diarrhea. - Atorvastatin Unknown - Bactrim [Sulfametho* Unknown ANDquot;I don't remember.ANDquot; - Codeine Unknown - Dilaudid [Hydromorp* Unknown - Meperidine - Pentazocine - Pioglitazone Unknown - Propoxyphene CURRENT OUTPATIENT MEDICATIONS: insulin glargine (LANTUS SOLOSTAR U-100 INSULIN) 100 unit/mL (3 mL) inpn Give 50 units subcutaneously in the morning and 50 units at bedtime. ELIQUIS 5 mg tab(s) TAKE ONE TABLET BY MOUTH TWICE DAILY nystatin (MYCOSTATIN) 100,000 unit/mL suspension Take 2 mL by mouth four times daily for 7 days. SWISH AND SWALLOW 2 ML 4 TIMES PER DAY. ipratropium-albuterol (DUONEB) 0.5 mg-3 mg(2.5 mg base)/3 mL nebu Inhale 3 mL as instructed every 4 hours as needed. benzonatate (TESSALON PERLE) 100 mg capsule Take 1 capsule by mouth three times daily for 7 days. predniSONE (DELTASONE) 10 mg tablet Take 40 mg daily 3 days then 30 mg daily 3 days then 20 mg daily 3 days then 10 mg daily 3 days guaiFENesin-dextromethorphan (ROBITUSSIN DM) 100-10 mg/5 mL syrup Take 5-10 mL by mouth every 6 hours as needed for Cough. pantoprazole DR (PROTONIX) 40 mg tablet Take 1 tablet by mouth twice daily before meals (0600/1600). colchicine 0.6 mg capsule Take 0.6 mg by mouth once daily. Two tablets in am and 1 tablet one hour later repeat this process for 5 days insulin aspart U-100 (NOVOLOG FLEXPEN U-100 INSULIN) 100 unit/mL inpn Inject 15 Units subcutaneously three times daily with meals. furosemide (LASIX) 40 mg tablet Take 1 tablet by mouth once daily nitroglycerin sublingual (NITROQUICK) 0.4 mg SL tablet Dissolve 1 tablet under the tongue every 5 minutes as needed. potassium chloride ER (K-DUR, KLOR-CON) 10 mEq tablet TAKE ONE TABLET BY MOUTH DAILY WITH BREAKFAST gabapentin (NEURONTIN) 300 mg capsule Take 2 capsules by mouth three times daily for 30 days. albuterol HFA (VENTOLIN HFA) 90 mcg/actuation inhaler Inhale 2 Puffs as instructed every 4 hours as needed. simvastatin (ZOCOR) 40 mg tablet TAKE ONE TABLET BY MOUTH ONCE DAILY AT BEDTIME OXYGEN, HOME THERAPY, Inhale 2.5 L/min as instructed as directed. ipratropium (ATROVENT) 0.02 % nebulizer solution Use 0.5 mg via nebulizer four times daily. isosorbide mononitrate ER (IMDUR) 30 mg 24 hr tablet Take 1 tablet by mouth twice daily. albuterol (PROVENTIL) 5 mg/mL nebu Inhale 0.5 mL as instructed one time only for 1 dose. 1 DOSE NOW - BACK OFFICE. PLACE 0.5 ML PER DROPPER AND 2.5 ML OF NORMAL SALINE INTO RESERVOIR. budesonide-formoterol (SYMBICORT) 160-4.5 mcg/actuation inhaler Inhale 2 Puffs as instructed twice daily. tiotropium bromide (SPIRIVA RESPIMAT) 2.5 mcg/actuation mist Inhale 2 Puffs as instructed once daily. PAST MEDICAL HISTORY Diagnosis Date - Arthritis - Atrial fibrillation (HCC) - CAD (coronary artery disease) stents x9, defibrillator, CABG. Seeing Dr. Cardona - Cardiac defibrillator in place - Cardiomegaly - Carotid artery disease (HCC) left - CKD (chronic kidney disease), stage IV ([facility]) - COPD (chronic obstructive pulmonary disease) ([facility]) Dr. Cruz - Depression - Diabetes ([facility]) - Diabetic neuropathy ([facility]) - GERD (gastroesophageal reflux disease) - Gout - HH (hiatus hernia) - HOCM (hypertrophic obstructive cardiomyopathy) ([facility]) - HTN (hypertension) - Hyperlipidemia - Morbid obesity with BMI of 40.0-44.9, adult ([facility]) - Pacemaker - Pneumonia h/o pneumonia/bronchitis - Renal insufficiency 2003 post op - Sleep apnea 2011 not on CPAP, unable to tolerate mask 02/2017 - SVT (supraventricular tachycardia) (HCC) NSVT and questionable VT in 2003 post op PAST SURGICAL HISTORY Procedure Laterality Date - PAST SURGICAL HISTORY OF 07/18/2004 Septal myectomy and CABG x2 (DEBORAH-LAD, SVG-PDA). - PAST SURGICAL HISTORY OF left breast nodule removed - PAST SURGICAL HISTORY OF hysterectomy - PAST SURGICAL HISTORY OF perianal abscess drained - PAST SURGICAL HISTORY OF cholecystectomy - PAST SURGICAL HISTORY OF skin lesions removed FAMILY HISTORY Problem Relation Age of Onset - Hypertension Mother living at age 93, HTN - Heart Failure Mother NE - Cancer Father age 71, lung cancer Social History Marital status: Spouse name: Years of education: Number of children: Social History Main Topics Smoking status: Former Smoker Packs/day: 2.50 Years: 43.00 Types: Cigarettes Start date: 1961 Quit date: 07/07/2004 Smokeless status: Never Used Alcohol use: No Drug use: No Other Topics Concern Caffeine Concern Yes Comment:coffee 1 cup daily Special Diet No Comment:Regular Exercise No Comment:no unable, due to SOB x several months. REVIEW OF SYSTEMS: General: No chills, fever, weight loss, night sweats. Respiratory: No productive cough. Cardiac: As noted above. GI: No melena. : No dysuria. Musculoskeletal: No myalgias. PHYSICAL EXAMINATION: S/he is alert and in no distress. VITAL SIGNS: BP 144/86 Pulse 64 Ht 5' 8ANDquot; (1.73m) Wt 224 lb 1.6 oz (101.7kg) BMI 34.08 kg/(m2). SHEENT: Skin is warm and dry. No xanthelasmas appreciated. Pharynx is benign. There is no oral cyanosis. Neck: supple. No adenopathy or thyroid enlargement. Chest: There are diffuse rhonchi. There is moderate expiratory prolongation. Trachea is midline. Air entry is equal. There is no chest wall tenderness. Cardiac: Regular rhythm. S1 and S2 are normal. PMI is nondisplaced. There is a 1/6 systolic ejection murmur. Carotids are brisk without bruits. JVP is less than 10 cm. Abdomen: Soft and nontender. Obesity precludes adequate examination. There are no pulsatile masses or bruits. No liver enlargement. Bowel sounds are active. Extremities: 1 plus chronic brawny edema. Pulses are diminished but symmetrical. No clubbing or cyanosis. No femoral bruits. Neurologic: Grossly normal motor and sensory. S/he is alert and oriented x4. Records from [facility] were reviewed. BNP was quite elevated. Troponin was present. Renal function is stable. Chest x-ray yesterday shows development of a pleural effusion. Recent cardiac studies were reviewed. Echocardiogram was performed today. Image quality is only fair, but LV function appears to be no worse. There is at least moderate pulmonary hypertension. Electronically Signed: Aren Cardona MD December 21, 2017 11:36 AM CC:MD Aren Samuels MD 12/21/2017 11:42 AM Signed Take Lasix 60 mg in the AM, 40 mg in the PM Take spironolactone 25 mg daily Have blood work on Referring Provider: AREN CARDONA [[id number]] Allergies As of Date: 12/21/2017 Noted Allergy Reaction LATEX 05/17/2017 2 - Rash 9 - Itching Comments: Itching and welts. No wheezing or shortness of breath. PENICILLINS 07/14/2004 2 - Rash 9 - Itching Comments: Tolerated ceftriaxone during 11/2017 admission TETRACYCLINE 09/29/2010 8 - GI Upset Comments: Emesis and diarrhea. ATORVASTATIN 05/17/2017 16 - Unknown BACTRIM (SULFAMETHOXAZOLE-TRIMETH*05/17/2017 16 - Unknown Comments: I don't remember. CODEINE 05/17/2017 16 - Unknown DILAUDID (HYDROMORPHONE (BULK)) 05/17/2017 16 - Unknown MEPERIDINE 07/14/2004 PENTAZOCINE 07/14/2004 PIOGLITAZONE 05/17/2017 16 - Unknown PROPOXYPHENE 07/14/2004 Date Reviewed: 12/21/2017 Reviewed by: Seefrino Mckeon - Fully Assessed Reason for Visit: Follow Up [171] Primary Visit Diagnosis:ASHD (arteriosclerotic heart disease) [I25.10] Other Visit Diagnoses:Chronic systolic CHF (congestive heart failure) ([facility]) [I50.22] PAF (paroxysmal atrial fibrillation) ([facility]) [I48.0] Order(s):BASIC METABOLIC PNL [SQBMP] Order #: [id number] FUTURE furosemide (LASIX) 40 mg tabletTake 60 mg in the AM and 40 mg in the PMDisp: Rfl: spironolactone (ALDACTONE) 25 mg tabletTake 1 tablet by mouth once daily.Disp: Rfl: Prescriptions as of 12/21/2017 Sig: FUROSEMIDE 40 MG TABLET Take 60 mg in the AM and 40 m* INSULIN GLARGINE (U-100) 100 * Give 50 units subcutaneously * ELIQUIS 5 MG TABLET TAKE ONE TABLET BY MOUTH TWIC* NYSTATIN 100,000 UNIT/ML ORAL* Take 2 mL by mouth four times* IPRATROPIUM-ALBUTEROL 0.5 MG-* Inhale 3 mL as instructed leanne* BENZONATATE 100 MG CAPSULE Take 1 capsule by mouth three* PREDNISONE 10 MG TABLET Take 40 mg daily 3 days then * DEXTROMETHORPHAN-GUAIFENESIN * Take 5-10 mL by mouth every 6* PANTOPRAZOLE 40 MG TABLET,DEL* Take 1 tablet by mouth twice * COLCHICINE 0.6 MG CAPSULE Take 0.6 mg by mouth once carlos* INSULIN ASPART U-100 100 UNI* Inject 15 Units subcutaneousl* Patient taking differently: Inject 12 Units subcutaneousl* NITROGLYCERIN 0.4 MG SUBLINGU* Dissolve 1 tablet under the t* POTASSIUM CHLORIDE ER 10 MEQ * TAKE ONE TABLET BY MOUTH JANETH* GABAPENTIN 300 MG CAPSULE Take 2 capsules by mouth thre* Patient taking differently: Take 600 mg by mouth twice da* ALBUTEROL SULFATE HFA 90 MCG/* Inhale 2 Puffs as instructed * SIMVASTATIN 40 MG TABLET TAKE ONE TABLET BY MOUTH ONCE* OXYGEN (HOME THERAPY) Inhale 2.5 L/min as instructe* IPRATROPIUM BROMIDE 0.02 % SO* Use 0.5 mg via nebulizer four* ISOSORBIDE MONONITRATE ER 30 * Take 1 tablet by mouth twice * Patient taking differently: Take 30 mg by mouth once janeth* SPIRONOLACTONE 25 MG TABLET Take 1 tablet by mouth once d* ALBUTEROL SULFATE CONCENTRATE* Inhale 0.5 mL as instructed o* BUDESONIDE-FORMOTEROL HFA 160* Inhale 2 Puffs as instructed * TIOTROPIUM BROMIDE 2.5 MCG/AC* Inhale 2 Puffs as instructed * Medication notes this encounter ALBUTEROL SULFATE CONCENTRATE 5 MG/ML(0.5 %) SOLUTION FOR NEBULIZATION >> Seferino Mckeon MA 12/21/2017 11:18 AM >> SEFERINO MCKEON MA WedDec 21, 2017 11:18 AM Not using BUDESONIDE-FORMOTEROL HFA 160 MCG-4.5 MCG/ACTUATION AEROSOL INHALER >> Seferino MckeonIDANIA 12/21/2017 11:19 AM >> SEFERINO MCKEON MA WedDec 21, 2017 11:19 AM Not using TIOTROPIUM BROMIDE 2.5 MCG/ACTUATION MIST FOR INHALATION >> Seferinodavid Mckeon MA 12/21/2017 11:18 AM >> SEFERINO MCKEON MA WedDec 21, 2017 11:18 AM Not using Problem List As Of Date 12/21/2017 Noted Resolved HOCM (hypertrophic obstructive cardiomyopathy) * More... SVT (supraventricular tachycardia) [I47.1] More... Carotid artery disease [I77.9] More... CAD (coronary artery disease) [I25.10] Essential hypertension [I10] More... Hyperlipidemia [E78.5] More... Pneumonia [J18.9] 10/27/2017 More... COPD (chronic obstructive pulmonary disease) [J* More... Sleep apnea [G47.30] More... HH (hiatus hernia) [K44.9] GERD (gastroesophageal reflux disease) [K21.9] More... Renal insufficiency [N28.9] More... Arthritis [M19.90] Numbness and tingling of right leg [R20.0, R20.* Depression [F32.9] Diabetes [E11.9] Atrial fibrillation [I48.91] INVALID FOR* More... Diabetes mellitus due to underlying condition, *INVALID FOR* More... SUMMARY [V999.95] INVALID FOR* More... Dyspnea [R06.00] INVALID FOR* More... Heart failure, systolic, acute [I50.21] INVALID FOR* More... Obesity [E66.9] INVALID FOR* More... 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*INVALID FOR* Elevated troponin [R74.8] INVALID FOR* COPD with acute exacerbation (HCC) [J44.1] INVALID FOR* Acute on chronic respiratory failure with hypox*INVALID FOR* Other instructions from your clinician: Take Lasix 60 mg in the AM, 40 mg in the PM Take spironolactone 25 mg daily Have blood work on Prescriptions ordered this encounter Disp Refills Start End FUROSEMIDE 40 MG TABLET 12/21/2017 Class: Med Update Sig: Take 60 mg in the AM and 40 mg in the PM SPIRONOLACTONE 25 MG TABLET 12/21/2017 Class: Med Update Route: ORAL Sig: Take 1 tablet by mouth once daily. Medications Discontinued During This Encounter furosemide (LASIX) 40 mg tablet 12/02/2017 12/21/2017 Class: Med Update Cmt: This prescription was filled on 08/06/2017. Any refills authorized will be placed on file. Sig: Take 1 tablet by mouth once daily Disc: Reason for discontinue is not on file. Encounter Status:Closed by AREN CARDONA MD on 12/21/17 LUDA Observed: 12/21/2017 Status: COMPLETED Source: [place] 12:00 AM [facility] REPOSITORY Patient Outreach (FAMPWS) LUZ BACA ([id number]) 1940 F Date Time Provider Department 12/21/17 REMI KENNEDY (RN) FAMPWS During your visit today, we recorded the following information about you: Remi Kennedy RN 12/21/2017 3:08 PM Signed PRIMARY CARE COORDINATION FOLLOW-UP NOTE Provider Action/FYI Discussed below with PCP. PCP asked PCC to call food and beverage operations manager to inform of diuretics. TC nia Dave at Dr. Mcnally' office, left message pt is in CHF and Dr. Cardona restarted diuretics. Call PCC if any questions Patient identified by name and date of . YES Spoke to patient and daughter, Octavia Concerns: Discussed pt seeing Noe Adkins yesterday and PA did not feel pt's problems were due to her lungs because her lung tests were good. PA spoke with Pete Cardona and pt had ECHO today and saw Dr. Cardona. Pt and daughter state Dr. Cardona feels pt's problems are due to both her heart and lungs and started pt on: spironolactone (ALDACTONE) 25 mg 1 tablet by mouth once daily and furosemide (LASIX) 40 mg 60 mg in the AM and 40 mg in the PM. Daughter states she is very concerned about pt's kidneys. Asked if Dr. Cardona was checking kidney function soon, states yes, he gave me a script for blood work to have home health nurse draw later this week. Watermelon Inspector plan for next outreach: Will follow up one week Signature Remi Kennedy RN December 21, 2017 Jameson Kamara MD 12/21/2017 3:36 PM Signed Thank you! Allergies As of Date: 12/21/2017 Noted Allergy Reaction LATEX 05/17/2017 2 - Rash 9 - Itching Comments: Itching and welts. No wheezing or shortness of breath. PENICILLINS 07/14/2004 2 - Rash 9 - Itching Comments: Tolerated ceftriaxone during 11/2017 admission TETRACYCLINE 09/29/2010 8 - GI Upset Comments: Emesis and diarrhea. ATORVASTATIN 05/17/2017 16 - Unknown BACTRIM (SULFAMETHOXAZOLE-TRIMETH*05/17/2017 16 - Unknown Comments: I don't remember. 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] Prescriptions as of 12/21/2017 Sig: FUROSEMIDE 40 MG TABLET Take 60 mg in the AM and 40 m* SPIRONOLACTONE 25 MG TABLET Take 1 tablet by mouth once d* INSULIN GLARGINE (U-100) 100 * Give 50 units subcutaneously * ELIQUIS 5 MG TABLET TAKE ONE TABLET BY MOUTH TWIC* NYSTATIN 100,000 UNIT/ML ORAL* Take 2 mL by mouth four times* IPRATROPIUM-ALBUTEROL 0.5 MG-* Inhale 3 mL as instructed leanne* BENZONATATE 100 MG CAPSULE Take 1 capsule by mouth three* PREDNISONE 10 MG TABLET Take 40 mg daily 3 days then * DEXTROMETHORPHAN-GUAIFENESIN * Take 5-10 mL by mouth every 6* PANTOPRAZOLE 40 MG TABLET,DEL* Take 1 tablet by mouth twice * ALBUTEROL SULFATE CONCENTRATE* Inhale 0.5 mL as instructed o* COLCHICINE 0.6 MG CAPSULE Take 0.6 mg by mouth once carlos* INSULIN ASPART U-100 100 UNI* Inject 15 Units subcutaneousl* Patient taking differently: Inject 12 Units subcutaneousl* NITROGLYCERIN 0.4 MG SUBLINGU* Dissolve 1 tablet under the t* POTASSIUM CHLORIDE ER 10 MEQ * TAKE ONE TABLET BY MOUTH JANETH* GABAPENTIN 300 MG CAPSULE Take 2 capsules by mouth thre* Patient taking differently: Take 600 mg by mouth twice da* BUDESONIDE-FORMOTEROL HFA 160* Inhale 2 Puffs as instructed * ALBUTEROL SULFATE HFA 90 MCG/* Inhale 2 Puffs as instructed * TIOTROPIUM BROMIDE 2.5 MCG/AC* Inhale 2 Puffs as instructed * SIMVASTATIN 40 MG TABLET TAKE ONE TABLET BY MOUTH ONCE* OXYGEN (HOME THERAPY) Inhale 2.5 L/min as instructe* IPRATROPIUM BROMIDE 0.02 % SO* Use 0.5 mg via nebulizer four* ISOSORBIDE MONONITRATE ER 30 * Take 1 tablet by mouth twice * Patient taking differently: Take 30 mg by mouth once janeth* Problem List As Of Date 12/21/2017 Noted Resolved HOCM (hypertrophic obstructive cardiomyopathy) * More... SVT (supraventricular tachycardia) [I47.1] More... Carotid artery disease [I77.9] More... CAD (coronary artery disease) [I25.10] Essential hypertension [I10] More... Hyperlipidemia [E78.5] More... Pneumonia [J18.9] 10/27/2017 More... COPD (chronic obstructive pulmonary disease) [J* More... Sleep apnea [G47.30] More... HH (hiatus hernia) [K44.9] GERD (gastroesophageal reflux disease) [K21.9] More... Renal insufficiency [N28.9] More... Arthritis [M19.90] Numbness and tingling of right leg [R20.0, R20.* Depression [F32.9] Diabetes [E11.9] Atrial fibrillation [I48.91] INVALID FOR* More... Diabetes mellitus due to underlying condition, *INVALID FOR* More... SUMMARY [V999.95] INVALID FOR* More... Dyspnea [R06.00] INVALID FOR* More... Heart failure, systolic, acute [I50.21] INVALID FOR* More... Obesity [E66.9] INVALID FOR* More... 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*INVALID FOR* Elevated troponin [R74.8] INVALID FOR* COPD with acute exacerbation (HCC) [J44.1] INVALID FOR* Acute on chronic respiratory failure with hypox*INVALID FOR* Encounter Status:Closed by REMI KENNEDY on 12/22/17 XR CHEST 2V FRONTAL/LAT Observed: 12/20/2017 Status: F Source: [place] 4:35 PM [facility] REPOSITORY * * *Final Report* * * DATE OF EXAM: Dec 20 2017 4:35PM WRX [id number] - XR CHEST 2V FRONTAL/LAT / PROCEDURE REASON: Shortness of breath * * * * Physician Interpretation * * * * EXAMINATION: CHEST RADIOGRAPH (2 VIEW FRONTAL and LATERAL) Clinical History: Shortness of breath MQ: XC2_4 Comparison: 12/10/17 RESULT: Lines, tubes, and devices: None. Lungs and pleura: Left lower lobe air space disease not clearly changed. No evidence of pulmonary vascular redistribution. Blunting left CPA. Cardiomediastinal silhouette: Status post median sternotomy. The cardiac-pericardial silhouette is enlarged, unchanged from the previous study. IMPRESSION: Left lower lobe infiltrate. No apparent change but comparison limited by technical change. Small left pleural effusion. Service Delivery Supervisor: SALINAS Transcribe Date/Time: Dec 21 2017 11:23A Dictated by : ISABELA SOLIS MD This examination was interpreted and the report reviewed and electronically signed by: ISABELA SOLIS MD on Dec 21 2017 11:30AM EST [id number] Observed: 12/20/2017 Status: COMPLETED Source: [place] 4:12 PM [facility] REPOSITORY HNO ID: [id number] Author: Guadalupe Lutz (Tech) Service: (none) Author Type: Warehouse Material Handler Type: Progress Notes Filed: 12/20/2017 4:13 PM Note Text: Radiology Service Progress Note PATIENT NAME: Luz Baca DATE OF SERVICE: December 20, 2017 TIME: 4:12 PM PATIENT IDENTITY VERIFICATION COMPLETED USING TWO (2) METHODS: Patient confirmed name verbally and Date of . PATIENT GENDER DATA: Female. status: : No status: NO. PATIENT RELEVANT IMPLANT DATA REVIEWED: Not Applicable RADIOLOGY DEPARTMENT: General X-ray: Exam(s) Completed: Chest X-Ray PERIPHERAL IV DATA: Not applicable SIGNED BY: Guadalupe Lira December 20, 2017 4:12 PM CNOV Observed: 12/20/2017 Status: COMPLETED Source: [place] 2:30 PM [facility] REPOSITORY Office Visit (PULMWS) LUZ BACA ([id number]) 1940 F Date Time Provider Department 12/20/17 2:30 PM MANDY ADKINS PULMWS During your visit today, we recorded the following information about you: Pulse Respiration Blood pressure 62/minute 18/minute 136/82 Mandy Adkins PA-C 12/21/2017 11:48 AM Addendum [facility]piratory [place] HPI: The patient is here for follow up of dyspnea/hospital follow up. Since the last visit 11/12/17, the patient was evaluated at [place] ED secondary to cough, fevers, chills and increased dyspnea. She was treated with Zpack, prednisone and tamiflu. Patient failed outpatient treatment and presented to [facility] a couple days later. Patient admitted with acute on chronic hypoxemic and hypercapnic respiratory failure, COPD with exacerbation failed outpatient treatment, and acute exacerbation of congestive heart failure. Treated with antibiotics and Prednisone taper. Today, patient states she is not feeling any better, and her breathing seems worse. Daily persistent cough with thick clear to benavides sputum. Occasional blood tinged. Describes pleuritic chest pain. ANDquot;All the timeANDquot; wheezing. ANDquot;I am very short of breathANDquot;. Currently working with PT in home. No fevers or chills. Lower extremity edema. Patient consistently using Symbicort 2 inhalations twice daily and Spiriva once daily. Has not noticed any improvement in symptoms since starting inhalers. 3 nebulized treatments daily. Side effects from medications: sore mouth. Wearing supplemental oxygen 2.5 L continuously. DME: [employer]. Previously diagnosed with PMH changes: Reviewed with patient today. No changes. FAMH changes: Reviewed with patient today. No changes. SOCH changes: No changes. ROS: GEN: Appetite good. Weight stable. ENT: Variable blurry vision. No eye pain. Sore, painful mouth. NEURO: No headache, focal weakness. Sleeps poorly. CV: No syncope, palpitations, exertional pain. Bilateral pedal edema. No orthopnea. Paroxysmal nocturnal dyspnea. GI: No dysphagia, heartburn. Variable diarrhea and constipation. : No urinary hesitancy. Otherwise negative. Immunization History Administered Date(s) Administered Influenza Seasonal - High Dose - Age 65+ 10/27/2017 Allergies were reviewed and updated, and medications were reconciled with the patient. PHYSICAL EXAMINATION: BP 136/82 Pulse 62 Resp 18 SpO2 96% O2: 3 liters pulse dosed. Gen: No acute distress. Cooperative with examination. ENT: Sclerae clear. EOMI. Nares clear. Oral hygeine fair. Oral thrush noted. Resp: No stridor, accessory respiratory muscle use, supra- sternal or intercostal retractions. Bilateral rhonchi, course breath sounds. No crackles, rubs, wheezes. CV: Irregular rhythm. Heart tones normal. Radial pulses normal. Abd: Non distended. MSK: No kyphoscoliosis, joint deformities. Ext: Warm and well perfused. No clubbing, cyanosis. Bilateral lower extremity edema, 1+ pitting edema. Skin: Color normal. Texture normal. No rash, eczema, urticaria, ecchymoses. Neuro: Mental status normal. Affect normal. Muscle tone normal. No tremor. DATA REVIEW: I have personally and independently reviewed [facility] inpatient chart, including notes, lab values and images. CXR, 12/21/17 IMPRESSION: Left lower ?lobe infiltrate. No apparent change but comparison limited by technical change. ?Small left pleural effusion. RESULT: Lines, tubes, and devices: ?None. Lungs and pleura: ?Left lower lobe air space disease not clearly changed. No evidence of pulmonary vascular redistribution. Blunting left CPA. Cardiomediastinal silhouette: ?Status post median sternotomy. The cardiac-pericardial silhouette is enlarged, unchanged from the previous study. IMPRESSION/RECOMMEND: 1. Dyspnea which appears to be due to concomitant known heart disease. - NT pro BNP ANDgt; 4000 in [facility]. - Continue with current Lasix 60 mg daily until follow up with Dr. Cardona. Spironolactone previously discharged by Nephrology in November 2017. - Last echocardiogram 2006. Discussed with Dr. Cardona. Patient to schedule for echo tomorrow with office visit with Dr. Cardona after procedure. - At this time, stop Spiriva and Symbicort, as they do not seem to be making a significant impact on your symptoms. - Continue nebulizer treatments every 4-6 hours as needed for wheezing, cough, and/or shortness of breath. - If no significant improvement with cardiac evaluation and treatment, would consider flexible bronchoscopy. 2. Oral thrush. - Nystatin swish and swallow as directed. Sent to pharmacy. 3. Hypoxemia. - Continue with continuous supplemental oxygen at this time. - Will discuss at next OV oximetry with ambulation. 4. Sleep apnea. - Previously unable to tolerate CPAP mask. - Untreated MARLA may lead to or worsen pulmonary arterial hypertension, CAD and cardiac arrhythmias, heart failure, and stroke. - Recommend referral to sleep medicine once patient is feeling better and able to tolerate PSG. I addressed the questions of the patient and daughter, and they expressed understanding and acceptance of my answers. Mandy Adkins PA-C [facility] [place] [id number] [place] [id number] Mandy Adkins PA-C 12/20/2017 3:53 PM Addendum 1. Dyspnea which appears to be due to concomitant known heart disease. - NT pro BNP ANDgt; 4000 in [facility]. - Continue with current Lasix 60 mg daily until follow up with Dr. Cardona. Spironolactone previously discharged by Nephrology in November 2017. - Last echocardiogram 2006. Discussed with Dr. Cardona. Patient to schedule for echo tomorrow with office visit with Dr. Cardona after procedure. - Will check CXR today. Further recommendations to follow. - At this time, stop Spiriva and Symbicort, as they do not seem to be making a significant impact on your symptoms. - Continue nebulizer treatments every 4-6 hours as needed for wheezing, cough, and/or shortness of breath. 2. Oral thrush. - Nystatin swish and swallow as directed. Sent to pharmacy. 3. Hypoxemia. - Continue with continuous supplemental oxygen at this time. - Will discuss at next OV oximetry with ambulation. 4. Sleep apnea. - Previously unable to tolerate CPAP mask. - Untreated MARLA may lead to or worsen pulmonary arterial hypertension, CAD and cardiac arrhythmias, heart failure, and stroke. - Recommend referral to sleep medicine once patient is feeling better and able to tolerate PSG. Referring Provider: SELF [[id number]] Allergies As of Date: 12/20/2017 Noted Allergy Reaction LATEX 05/17/2017 2 - Rash 9 - Itching Comments: Itching and welts. No wheezing or shortness of breath. PENICILLINS 07/14/2004 2 - Rash 9 - Itching Comments: Tolerated ceftriaxone during 11/2017 admission TETRACYCLINE 09/29/2010 8 - GI Upset Comments: Emesis and diarrhea. ATORVASTATIN 05/17/2017 16 - Unknown BACTRIM (SULFAMETHOXAZOLE-TRIMETH*05/17/2017 16 - Unknown Comments: I don't remember. CODEINE 05/17/2017 16 - Unknown DILAUDID (HYDROMORPHONE (BULK)) 05/17/2017 16 - Unknown MEPERIDINE 07/14/2004 PENTAZOCINE 07/14/2004 PIOGLITAZONE 05/17/2017 16 - Unknown PROPOXYPHENE 07/14/2004 Date Reviewed: 12/20/2017 Reviewed by: Mandy Adkins - Fully Assessed Reason for Visit: Established Patient [175] Cmt: COPD Primary Visit Diagnosis:Shortness of breath [R06.02] Other Visit Diagnoses:Oral thrush [B37.0] MARLA (obstructive sleep apnea) [G47.33] Hypoxemia [R09.02] Order(s):XR CHEST 2V FRONTAL/LAT [1073707] Order #: [id number] FUTURE nystatin (MYCOSTATIN) 100,000 unit/mL suspensionTake 2 mL by mouth four times daily for 7 days. SWISH AND SWALLOW 2 ML 4 TIMES PER DAY.Disp: 56 mLRfl: 0 ipratropium-albuterol (DUONEB) 0.5 mg-3 mg(2.5 mg base)/3 mL nebuInhale 3 mL as instructed every 4 hours as needed.Disp: 180 VialRfl: 3 Prescriptions as of 12/20/2017 Sig: INSULIN GLARGINE (U-100) 100 * Give 50 units subcutaneously * ELIQUIS 5 MG TABLET TAKE ONE TABLET BY MOUTH TWIC* BENZONATATE 100 MG CAPSULE Take 1 capsule by mouth three* PREDNISONE 10 MG TABLET Take 40 mg daily 3 days then * DEXTROMETHORPHAN-GUAIFENESIN * Take 5-10 mL by mouth every 6* PANTOPRAZOLE 40 MG TABLET,DEL* Take 1 tablet by mouth twice * ALBUTEROL SULFATE CONCENTRATE* Inhale 0.5 mL as instructed o* COLCHICINE 0.6 MG CAPSULE Take 0.6 mg by mouth once carlos* INSULIN ASPART U-100 100 UNI* Inject 15 Units subcutaneousl* Patient taking differently: Inject 12 Units subcutaneousl* NITROGLYCERIN 0.4 MG SUBLINGU* Dissolve 1 tablet under the t* X FUROSEMIDE 40 MG TABLET Take 1 tablet by mouth once d* POTASSIUM CHLORIDE ER 10 MEQ * TAKE ONE TABLET BY MOUTH JANETH* GABAPENTIN 300 MG CAPSULE Take 2 capsules by mouth thre* Patient taking differently: Take 600 mg by mouth twice da* BUDESONIDE-FORMOTEROL HFA 160* Inhale 2 Puffs as instructed * ALBUTEROL SULFATE HFA 90 MCG/* Inhale 2 Puffs as instructed * TIOTROPIUM BROMIDE 2.5 MCG/AC* Inhale 2 Puffs as instructed * SIMVASTATIN 40 MG TABLET TAKE ONE TABLET BY MOUTH ONCE* OXYGEN (HOME THERAPY) Inhale 2.5 L/min as instructe* IPRATROPIUM BROMIDE 0.02 % SO* Use 0.5 mg via nebulizer four* ISOSORBIDE MONONITRATE ER 30 * Take 1 tablet by mouth twice * Patient taking differently: Take 30 mg by mouth once janeth* NYSTATIN 100,000 UNIT/ML ORAL* Take 2 mL by mouth four times* IPRATROPIUM-ALBUTEROL 0.5 MG-* Inhale 3 mL as instructed leanne* Medication notes this encounter FUROSEMIDE 40 MG TABLET >> Mandy Adkins PA-C 12/20/2017 2:35 PM >> MANDY ADKINS WedDec 20, 2017 2:35 PM Taking 60 mg in the morning. Problem List As Of Date 12/20/2017 Noted Resolved HOCM (hypertrophic obstructive cardiomyopathy) * More... SVT (supraventricular tachycardia) [I47.1] More... Carotid artery disease [I77.9] More... CAD (coronary artery disease) [I25.10] Essential hypertension [I10] More... Hyperlipidemia [E78.5] More... Pneumonia [J18.9] 10/27/2017 More... COPD (chronic obstructive pulmonary disease) [J* More... Sleep apnea [G47.30] More... HH (hiatus hernia) [K44.9] GERD (gastroesophageal reflux disease) [K21.9] More... Renal insufficiency [N28.9] More... Arthritis [M19.90] Numbness and tingling of right leg [R20.0, R20.* Depression [F32.9] Diabetes [E11.9] Atrial fibrillation [I48.91] INVALID FOR* More... Diabetes mellitus due to underlying condition, *INVALID FOR* More... SUMMARY [V999.95] INVALID FOR* More... Dyspnea [R06.00] INVALID FOR* More... Heart failure, systolic, acute [I50.21] INVALID FOR* More... Obesity [E66.9] INVALID FOR* More... 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*INVALID FOR* Elevated troponin [R74.8] INVALID FOR* COPD with acute exacerbation (HCC) [J44.1] INVALID FOR* Acute on chronic respiratory failure with hypox*INVALID FOR* Other instructions from your clinician: 1. Dyspnea which appears to be due to concomitant known heart disease. - NT pro BNP > 4000 in [facility]. - Continue with current Lasix 60 mg daily until follow up with Dr. Cardona. Spironolactone previously discharged by Nephrology in November 2017. - Last echocardiogram 2006. Discussed with Dr. Cardona. Patient to schedule for echo tomorrow with office visit with Dr. Cardona after procedure. - Will check CXR today. Further recommendations to follow. - At this time, stop Spiriva and Symbicort, as they do not seem to be making a significant impact on your symptoms. - Continue nebulizer treatments every 4-6 hours as needed for wheezing, cough, and/or shortness of breath. 2. Oral thrush. - Nystatin swish and swallow as directed. Sent to pharmacy. 3. Hypoxemia. - Continue with continuous supplemental oxygen at this time. - Will discuss at next OV oximetry with ambulation. 4. Sleep apnea. - Previously unable to tolerate CPAP mask. - Untreated MARLA may lead to or worsen pulmonary arterial hypertension, CAD and cardiac arrhythmias, heart failure, and stroke. - Recommend referral to sleep medicine once patient is feeling better and able to tolerate PSG. Prescriptions ordered this encounter Disp Refills Start End NYSTATIN 100,000 UNIT/ML ORAL SUSPEN* 56 mL 0 12/20/2017 12/27/2017 Route: ORAL Sig: Take 2 mL by mouth four times daily for 7 days. SWISH AND SWALLOW 2 ML 4 TIMES PER DAY. IPRATROPIUM-ALBUTEROL 0.5 MG-3 MG(2.* 180 * 3 12/20/2017 Route: INHALATION Sig: Inhale 3 mL as instructed every 4 hours as needed. Disposition: Return in about 6 weeks (around 01/31/2018). Follow-up and Disposition History Recorded Encounter Status:Closed by MANDY ADKINS on 12/20/17 PROGRESS Observed: 12/20/2017 Status: COMPLETED Source: [place] 2:25 PM [facility] [place] REPOSITORY HNO ID: [id number] Author: Mandy Adkins Service: (none) Author Type: Physician Transport Driver Type: Progress Notes Filed: 12/21/2017 11:48 AM Note Text: [facility] [place] HPI: The patient is here for follow up of dyspnea/hospital follow up. Since the last visit 11/12/17, the patient was evaluated at [place] ED secondary to cough, fevers, chills and increased dyspnea. She was treated with Zpack, prednisone and tamiflu. Patient failed outpatient treatment and presented to [facility] a couple days later. Patient admitted with acute on chronic hypoxemic and hypercapnic respiratory failure, COPD with exacerbation failed outpatient treatment, and acute exacerbation of congestive heart failure. Treated with antibiotics and Prednisone taper. Today, patient states she is not feeling any better, and her breathing seems worse. Daily persistent cough with thick clear to benavides sputum. Occasional blood tinged. Describes pleuritic chest pain. All the time wheezing. I am very short of breath. Currently working with PT in home. No fevers or chills. Lower extremity edema. Patient consistently using Symbicort 2 inhalations twice daily and Spiriva once daily. Has not noticed any improvement in symptoms since starting inhalers. 3 nebulized treatments daily. Side effects from medications: sore mouth. Wearing supplemental oxygen 2.5 L continuously. DME: [employer]. Previously diagnosed with PMH changes: Reviewed with patient today. No changes. FAMH changes: Reviewed with patient today. No changes. SOCH changes: No changes. ROS: GEN: Appetite good. Weight stable. ENT: Variable blurry vision. No eye pain. Sore, painful mouth. NEURO: No headache, focal weakness. Sleeps poorly. CV: No syncope, palpitations, exertional pain. Bilateral pedal edema. No orthopnea. Paroxysmal nocturnal dyspnea. GI: No dysphagia, heartburn. Variable diarrhea and constipation. : No urinary hesitancy. Otherwise negative. Immunization History Administered Date(s) Administered Influenza Seasonal - High Dose - Age 65+ 10/27/2017 Allergies were reviewed and updated, and medications were reconciled with the patient. PHYSICAL EXAMINATION: BP 136/82 Pulse 62 Resp 18 SpO2 96% O2: 3 liters pulse dosed. Gen: No acute distress. Cooperative with examination. ENT: Sclerae clear. EOMI. Nares clear. Oral hygeine fair. Oral thrush noted. Resp: No stridor, accessory respiratory muscle use, supra- sternal or intercostal retractions. Bilateral rhonchi, course breath sounds. No crackles, rubs, wheezes. CV: Irregular rhythm. Heart tones normal. Radial pulses normal. Abd: Non distended. MSK: No kyphoscoliosis, joint deformities. Ext: Warm and well perfused. No clubbing, cyanosis. Bilateral lower extremity edema, 1+ pitting edema. Skin: Color normal. Texture normal. No rash, eczema, urticaria, ecchymoses. Neuro: Mental status normal. Affect normal. Muscle tone normal. No tremor. DATA REVIEW: I have personally and independently reviewed [facility] inpatient chart, including notes, lab values and images. CXR, 12/21/17 IMPRESSION: Left lower ?lobe infiltrate. No apparent change but comparison limited by technical change. ?Small left pleural effusion. RESULT: Lines, tubes, and devices: ?None. Lungs and pleura: ?Left lower lobe air space disease not clearly changed. No evidence of pulmonary vascular redistribution. Blunting left CPA. Cardiomediastinal silhouette: ?Status post median sternotomy. The cardiac-pericardial silhouette is enlarged, unchanged from the previous study. IMPRESSION/RECOMMEND: 1. Dyspnea which appears to be due to concomitant known heart disease. - NT pro BNP > 4000 in [facility]. - Continue with current Lasix 60 mg daily until follow up with Dr. Cardona. Spironolactone previously discharged by Nephrology in November 2017. - Last echocardiogram 2006. Discussed with Dr. Cardona. Patient to schedule for echo tomorrow with office visit with Dr. Cardona after procedure. - At this time, stop Spiriva and Symbicort, as they do not seem to be making a significant impact on your symptoms. - Continue nebulizer treatments every 4-6 hours as needed for wheezing, cough, and/or shortness of breath. - If no significant improvement with cardiac evaluation and treatment, would consider flexible bronchoscopy. 2. Oral thrush. - Nystatin swish and swallow as directed. Sent to pharmacy. 3. Hypoxemia. - Continue with continuous supplemental oxygen at this time. - Will discuss at next OV oximetry with ambulation. 4. Sleep apnea. - Previously unable to tolerate CPAP mask. - Untreated MARLA may lead to or worsen pulmonary arterial hypertension, CAD and cardiac arrhythmias, heart failure, and stroke. - Recommend referral to sleep medicine once patient is feeling better and able to tolerate PSG. I addressed the questions of the patient and daughter, and they expressed understanding and acceptance of my answers. Mandy Adkins PA-C [facility] [place] [facility] [place] [address] [address] PROGRESS Observed: 12/20/2017 Status: COMPLETED Source: [place] 12:48 PM [facility] REPOSITORY HNO ID: [id number] Author: Remi Briseno) Brent Service: (none) Author Type: Registered Nurse Type: Progress Notes Filed: 12/20/2017 12:54 PM Note Text: TRANSITION CARE MANAGEMENT (TCM) FOLLOW-UP NOTE Provider Action/FYI Discussed with PCP and appt rescheduled for pulmonology today Patient identified by name and date of : YES Spoke to daughterOctavia Concerns: Asked how pt is feeling? States pt's breathing is no better but unable to describe symptoms and she isn't home to ask pt. Discussed with PCP and informed pt has appt with Pulmonology tomorrow with GORGE Xavier. PCP wants pt to see pulmonology to access breathing. Discussed above with daughter and rescheduled appt with Arsen Adkins for this afternoon, verbalized agreement. Watermelon Inspector plan for next outreach: Will follow up end of week Signature Remi Kennedy RN December 20, 2017 PROGRESS Observed: 12/20/2017 Status: COMPLETED Source: [place] 9:22 AM [facility] REPOSITORY HNO ID: [id number] Author: Jameson Kamara Service: (none) Author Type: Physician Type: Progress Notes Filed: 12/20/2017 9:22 AM Note Text: Reviewed. Please contact patient today for update on symptoms. May need seen today if no better. CNPTOUTREACH Observed: 12/20/2017 Status: COMPLETED Source: [place] 12:00 AM [facility] REPOSITORY Patient Outreach (FAMPWS) LUZ BACA Salvador ([id number]) 1940 F Date Time Provider Department 12/20/17 REMI KENNEDY (RN) ANTOINE During your visit today, we recorded the following information about you: Remi Kennedy RN 12/20/2017 12:54 PM Signed TRANSITION CARE MANAGEMENT (TCM) FOLLOW-UP NOTE Provider Action/FYI Discussed with PCP and appt rescheduled for pulmonology today Patient identified by name and date of : YES Spoke to daughterOctavia Concerns: Asked how pt is feeling? States pt's breathing is no better but unable to describe symptoms and she isn't home to ask pt. Discussed with PCP and informed pt has appt with Pulmonology tomorrow with GORGE Xavier. PCP wants pt to see pulmonology to access breathing. Discussed above with daughter and rescheduled appt with Arsen Adkins for this afternoon, verbalized agreement. Watermelon Inspector plan for next outreach: Will follow up end of week Signature Remi Kennedy RN December 20, 2017 Allergies As of Date: 12/20/2017 Noted Allergy Reaction LATEX 05/17/2017 2 - Rash 9 - Itching Comments: Itching and welts. No wheezing or shortness of breath. PENICILLINS 07/14/2004 2 - Rash 9 - Itching Comments: Tolerated ceftriaxone during 11/2017 admission TETRACYCLINE 09/29/2010 8 - GI Upset Comments: Emesis and diarrhea. ATORVASTATIN 05/17/2017 16 - Unknown BACTRIM (SULFAMETHOXAZOLE-TRIMETH*05/17/2017 16 - Unknown Comments: I don't remember. 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 [facility] Follow Up [3610] Prescriptions as of 12/20/2017 Sig: INSULIN GLARGINE (U-100) 100 * Give 50 units subcutaneously * BENZONATATE 100 MG CAPSULE Take 1 capsule by mouth three* PREDNISONE 10 MG TABLET Take 40 mg daily 3 days then * DEXTROMETHORPHAN-GUAIFENESIN * Take 5-10 mL by mouth every 6* PANTOPRAZOLE 40 MG TABLET,DEL* Take 1 tablet by mouth twice * ALBUTEROL SULFATE CONCENTRATE* Inhale 0.5 mL as instructed o* COLCHICINE 0.6 MG CAPSULE Take 0.6 mg by mouth once carlos* INSULIN ASPART U-100 100 UNI* Inject 15 Units subcutaneousl* Patient taking differently: Inject 12 Units subcutaneousl* FUROSEMIDE 40 MG TABLET Take 1 tablet by mouth once d* NITROGLYCERIN 0.4 MG SUBLINGU* Dissolve 1 tablet under the t* POTASSIUM CHLORIDE ER 10 MEQ * TAKE ONE TABLET BY MOUTH JANETH* GABAPENTIN 300 MG CAPSULE Take 2 capsules by mouth thre* Patient taking differently: Take 600 mg by mouth twice da* BUDESONIDE-FORMOTEROL HFA 160* Inhale 2 Puffs as instructed * ALBUTEROL SULFATE HFA 90 MCG/* Inhale 2 Puffs as instructed * TIOTROPIUM BROMIDE 2.5 MCG/AC* Inhale 2 Puffs as instructed * SIMVASTATIN 40 MG TABLET TAKE ONE TABLET BY MOUTH ONCE* OXYGEN (HOME THERAPY) Inhale 2.5 L/min as instructe* IPRATROPIUM BROMIDE 0.02 % SO* Use 0.5 mg via nebulizer four* ISOSORBIDE MONONITRATE ER 30 * Take 1 tablet by mouth twice * Patient taking differently: Take 30 mg by mouth once janeth* APIXABAN 5 MG TABLET Take 1 tablet by mouth twice * Patient taking differently: Take 2.5 mg by mouth twice da* Problem List As Of Date 12/20/2017 Noted Resolved HOCM (hypertrophic obstructive cardiomyopathy) * More... SVT (supraventricular tachycardia) [I47.1] More... Carotid artery disease [I77.9] More... CAD (coronary artery disease) [I25.10] Essential hypertension [I10] More... Hyperlipidemia [E78.5] More... Pneumonia [J18.9] 10/27/2017 More... COPD (chronic obstructive pulmonary disease) [J* More... Sleep apnea [G47.30] More... HH (hiatus hernia) [K44.9] GERD (gastroesophageal reflux disease) [K21.9] More... Renal insufficiency [N28.9] More... Arthritis [M19.90] Numbness and tingling of right leg [R20.0, R20.* Depression [F32.9] Diabetes [E11.9] Atrial fibrillation [I48.91] INVALID FOR* More... Diabetes mellitus due to underlying condition, *INVALID FOR* More... SUMMARY [V999.95] INVALID FOR* More... Dyspnea [R06.00] INVALID FOR* More... Heart failure, systolic, acute [I50.21] INVALID FOR* More... Obesity [E66.9] INVALID FOR* More... 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*INVALID FOR* Elevated troponin [R74.8] INVALID FOR* COPD with acute exacerbation (HCC) [J44.1] INVALID FOR* Acute on chronic respiratory failure with hypox*INVALID FOR* Encounter Status:Closed by REMI KENNEDY on 12/20/17 PROGRESS Observed: 12/17/2017 Status: COMPLETED Source: [place] 4:37 PM [facility] [place] REPOSITORY [facility] ID: [id number] Author: Cindy Gerber [facility] Service: (none) Author Type: Registered Nurse Type: Progress Notes Filed: 12/18/2017 1:06 PM Note Text: TRANSITION CARE MANAGEMENT (TCM) INITIAL CONTACT Provider Action/I: Pt was in [facility] but continues to be SOB and no better per daughter. Initial contact with patient post discharge, spoke to Octavia. Patient identified by name and . SUMMARY: -Pt discharged from [facility] on 12/15/17. -Follow up appointment on 12/21/17 with Adriel Worrell CNP. -Medication review done reviewed briefly but daughter was not at home. Will call again tomorrow to review. -Admitted for: CHF, COPD, poss pneumonia CONCERNS: Daughter feels that she is no better than when she went to hospital. She is not home to review meds, though mother needs nebulizer meds. Will call again on Wednesday to review in anticipation of appt on . NEW MEDICATIONS: Prednisone Doxycycline MEDS HELD/DISCONTINUED: None BRIEF HOSPITAL COURSE: Was seen ??at [place] [facility] and placed on Zpack, prednisone, and tamiflu on 12/06. Have ?gotten progressively worse since then. She is normally on 2.5 liters O2 but has required more in the past week. Patient was seen by her primary care doctor who wanted her further evaluated at [facility]. ? ? Hospital course: ? She had been admitted with copd exacerbation, possible pneumonia and CHF exacerbation, has been treated with breathing treatments, steroids, antibiotics and lasix. She had seen by the cardiology, pulmonary and endocrinology. She is improved slowly. Cultures have been negative. Legionella,strept pneumonia ,procal ?Negative ,sputum culture could not be done ,?mycoplasma negative?. Her work up- CXR findings of Small left pleural effusion with left basilar atelectasis and/or consolidation. Stable cardiomegaly. CT chest Linear densities RIGHT middle lobe and LEFT lung base consistent with atelectasis and/or fibrosis. ?Nonspecific groundglass airspace disease posterior RIGHT lower lobe base. Left pleural thickening with calcific a cyst. ?This may be due to remote Hemothorax.Cardiomegaly. She is feeling better. She is back to baseline oxygen 2.5 lts oxygen. Lungs are clear to ascultation now. Able to get to rest room with out any difficulty. PT recommended home PT/OT. Continue to take tapering steroids, antibiotics, continue breathing treatments at home, f/u with pulmonary, cardiology and pcp in 1-2 weeks. ? JONA Observed: 12/17/2017 Status: COMPLETED Source: [place] 12:00 AM CLINIC OTHER CAMPUS REPOSITORY Telephone (AGCARDPOB) LUZ BACA ([id number]) 1940 F Date Time Provider Department 12/17/17 AREN CARDONA (HIST) SpectafyROSA During your visit today, we recorded the following information about you: Bev Sam 12/17/2017 11:08 AM Signed Please contact pt's daughter Octavia Soliman. pt is requesting a sooner f/u. Per pt daughter hosp f/u should be 2 wks from d/c. Bev Sam 12/17/2017 11:06:51 Timi Mcqueen, RN, RN 12/17/2017 11:27 AM Signed Patient recently discharged from [facility], please verify when you would like to see patient, thank you. Aren Cardona MD 12/17/2017 1:05 PM Signed She has appointments in primary care and pulmonology on Wednesday. If it is felt that we need to see her before 2 weeks, we will work her in, but schedule is pretty full next week. MD Remi Philip PSR 12/17/2017 4:10 PM Signed Patient has an appointment with Dr. Cardona on January 18, 2018. She has an appointment with her PCP and Pulmonology next week. We do not have any open appointments untl January 12 . Is it necessary to double book her or can we just keep her appointment on January 18 since she will be seen by her primary care doctor. Seferino Mckeon MA 12/17/2017 4:42 PM Signed Attempted to reach patients daughter, no answer and no voicemail has been set up. IDANIA Salazar, RN, RN 12/17/2017 4:50 PM Signed Daughter verbalizes understanding. Allergies As of Date: 12/17/2017 Noted Allergy Reaction LATEX 05/17/2017 2 - Rash 9 - Itching Comments: Itching and welts. No wheezing or shortness of breath. PENICILLINS 07/14/2004 2 - Rash 9 - Itching Comments: Tolerated ceftriaxone during 11/2017 admission TETRACYCLINE 09/29/2010 8 - GI Upset Comments: Emesis and diarrhea. ATORVASTATIN 05/17/2017 16 - Unknown BACTRIM (SULFAMETHOXAZOLE-TRIMETH*05/17/2017 16 - Unknown Comments: I don't remember. CODEINE 05/17/2017 16 - Unknown DILAUDID (HYDROMORPHONE (BULK)) 05/17/2017 16 - Unknown MEPERIDINE 07/14/2004 PENTAZOCINE 07/14/2004 PIOGLITAZONE 05/17/2017 16 - Unknown PROPOXYPHENE 07/14/2004 Date Reviewed: 12/15/2017 Reviewed by: Meenakshi (Rn) [facility] - Fully Assessed Reason for Visit: Appointment [[id number]] Prescriptions as of 12/17/2017 Sig: INSULIN GLARGINE (U-100) 100 * Give 45 units subcutaneously * BENZONATATE 100 MG CAPSULE Take 1 capsule by mouth three* PREDNISONE 10 MG TABLET Take 40 mg daily 3 days then * DEXTROMETHORPHAN-GUAIFENESIN * Take 5-10 mL by mouth every 6* PANTOPRAZOLE 40 MG TABLET,DEL* Take 1 tablet by mouth twice * DOXYCYCLINE HYCLATE 100 MG CA* Take 1 capsule by mouth every* ALBUTEROL SULFATE CONCENTRATE* Inhale 0.5 mL as instructed o* COLCHICINE 0.6 MG CAPSULE Take 0.6 mg by mouth once carlos* INSULIN ASPART U-100 100 UNI* Inject 15 Units subcutaneousl* Patient taking differently: Inject 12 Units subcutaneousl* FUROSEMIDE 40 MG TABLET Take 1 tablet by mouth once d* NITROGLYCERIN 0.4 MG SUBLINGU* Dissolve 1 tablet under the t* POTASSIUM CHLORIDE ER 10 MEQ * TAKE ONE TABLET BY MOUTH JANETH* GABAPENTIN 300 MG CAPSULE Take 2 capsules by mouth thre* Patient taking differently: Take 600 mg by mouth twice da* BUDESONIDE-FORMOTEROL HFA 160* Inhale 2 Puffs as instructed * ALBUTEROL SULFATE HFA 90 MCG/* Inhale 2 Puffs as instructed * TIOTROPIUM BROMIDE 2.5 MCG/AC* Inhale 2 Puffs as instructed * SIMVASTATIN 40 MG TABLET TAKE ONE TABLET BY MOUTH ONCE* OXYGEN (HOME THERAPY) Inhale 2.5 L/min as instructe* IPRATROPIUM BROMIDE 0.02 % SO* Use 0.5 mg via nebulizer four* ISOSORBIDE MONONITRATE ER 30 * Take 1 tablet by mouth twice * Patient taking differently: Take 30 mg by mouth once janeth* APIXABAN 5 MG TABLET Take 1 tablet by mouth twice * Patient taking differently: Take 2.5 mg by mouth twice da* Problem List As Of Date 12/17/2017 Noted Resolved HOCM (hypertrophic obstructive cardiomyopathy) * More... SVT (supraventricular tachycardia) [I47.1] More... Carotid artery disease [I77.9] More... CAD (coronary artery disease) [I25.10] Essential hypertension [I10] More... Hyperlipidemia [E78.5] More... Pneumonia [J18.9] 10/27/2017 More... COPD (chronic obstructive pulmonary disease) [J* More... Sleep apnea [G47.30] More... HH (hiatus hernia) [K44.9] GERD (gastroesophageal reflux disease) [K21.9] More... Renal insufficiency [N28.9] More... Arthritis [M19.90] Numbness and tingling of right leg [R20.0, R20.* Depression [F32.9] Diabetes [E11.9] Atrial fibrillation [I48.91] INVALID FOR* More... Diabetes mellitus due to underlying condition, *INVALID FOR* More... SUMMARY [V999.95] INVALID FOR* More... Dyspnea [R06.00] INVALID FOR* More... Heart failure, systolic, acute [I50.21] INVALID FOR* More... Obesity [E66.9] INVALID FOR* More... 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*INVALID FOR* Elevated troponin [R74.8] INVALID FOR* COPD with acute exacerbation (HCC) [J44.1] INVALID FOR* Acute on chronic respiratory failure with hypox*INVALID FOR* Encounter Status:Closed by SEFERINO MCKEON MA on 12/17/17 SHAYNAUTRRADHA Observed: 12/17/2017 Status: COMPLETED Source: [place] 12:00 AM [facility] REPOSITORY Patient Outreach (INTMWS) LUZ BACA ([id number]) 1940 F Date Time Provider Department 12/17/17 CINDY ANDREA During your visit today, we recorded the following information about you: Cindy Gerber RN 12/18/2017 1:06 PM Signed TRANSITION CARE MANAGEMENT (TCM) INITIAL CONTACT Provider Action/FYI: Pt was in [facility] but continues to be SOB and ANDquot;no betterANDquot; per daughter. Initial contact with patient post discharge, spoke to Octavia. Patient identified by name and . SUMMARY: -Pt discharged from [facility] on 12/15/17. -Follow up appointment on 12/21/17 with Adriel Worrell CNP. -Medication review done reviewed briefly but daughter was not at home. Will call again tomorrow to review. -Admitted for: CHF, COPD, poss pneumonia CONCERNS: Daughter feels that she is no better than when she went to hospital. She is not home to review meds, though mother needs nebulizer meds. Will call again on Wednesday to review in anticipation of appt on . NEW MEDICATIONS: Prednisone Doxycycline MEDS HELD/DISCONTINUED: None BRIEF HOSPITAL COURSE: Was seen ??at [place] ED and placed on Zpack, prednisone, and tamiflu on 12/06. Have ?gotten progressively worse since then. She is normally on 2.5 liters O2 but has required more in the past week. Patient was seen by her primary care doctor who wanted her further evaluated at [facility]. ? ? Hospital course: ? She had been admitted with copd exacerbation, possible pneumonia and CHF exacerbation, has been treated with breathing treatments, steroids, antibiotics and lasix. She had seen by the cardiology, pulmonary and endocrinology. She is improved slowly. Cultures have been negative. Legionella,strept pneumonia ,procal ?Negative ,sputum culture could not be done ,?mycoplasma negative?. Her work up- CXR findings of Small left pleural effusion with left basilar atelectasis and/or consolidation. Stable cardiomegaly. CT chest Linear densities RIGHT middle lobe and LEFT lung base consistent with atelectasis and/or fibrosis. ?Nonspecific groundglass airspace disease posterior RIGHT lower lobe base. Left pleural thickening with calcific a cyst. ?This may be due to remote Hemothorax.Cardiomegaly. She is feeling better. She is back to baseline oxygen 2.5 lts oxygen. Lungs are clear to ascultation now. Able to get to rest room with out any difficulty. PT recommended home PT/OT. Continue to take tapering steroids, antibiotics, continue breathing treatments at home, f/u with pulmonary, cardiology and pcp in 1-2 weeks. ? Allergies As of Date: 12/17/2017 Noted Allergy Reaction LATEX 05/17/2017 2 - Rash 9 - Itching Comments: Itching and welts. No wheezing or shortness of breath. PENICILLINS 07/14/2004 2 - Rash 9 - Itching Comments: Tolerated ceftriaxone during 11/2017 admission TETRACYCLINE 09/29/2010 8 - GI Upset Comments: Emesis and diarrhea. ATORVASTATIN 05/17/2017 16 - Unknown BACTRIM (SULFAMETHOXAZOLE-TRIMETH*05/17/2017 16 - Unknown Comments: I don't remember. 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 [facility] Follow Up [3610] Cmt: [facility] 12/10- Prescriptions as of 12/17/2017 Sig: INSULIN GLARGINE (U-100) 100 * Give 45 units subcutaneously * BENZONATATE 100 MG CAPSULE Take 1 capsule by mouth three* PREDNISONE 10 MG TABLET Take 40 mg daily 3 days then * DEXTROMETHORPHAN-GUAIFENESIN * Take 5-10 mL by mouth every 6* PANTOPRAZOLE 40 MG TABLET,DEL* Take 1 tablet by mouth twice * DOXYCYCLINE HYCLATE 100 MG CA* Take 1 capsule by mouth every* ALBUTEROL SULFATE CONCENTRATE* Inhale 0.5 mL as instructed o* COLCHICINE 0.6 MG CAPSULE Take 0.6 mg by mouth once carlos* INSULIN ASPART U-100 100 UNI* Inject 15 Units subcutaneousl* Patient taking differently: Inject 12 Units subcutaneousl* FUROSEMIDE 40 MG TABLET Take 1 tablet by mouth once d* NITROGLYCERIN 0.4 MG SUBLINGU* Dissolve 1 tablet under the t* POTASSIUM CHLORIDE ER 10 MEQ * TAKE ONE TABLET BY MOUTH JANETH* GABAPENTIN 300 MG CAPSULE Take 2 capsules by mouth thre* Patient taking differently: Take 600 mg by mouth twice da* BUDESONIDE-FORMOTEROL HFA 160* Inhale 2 Puffs as instructed * ALBUTEROL SULFATE HFA 90 MCG/* Inhale 2 Puffs as instructed * TIOTROPIUM BROMIDE 2.5 MCG/AC* Inhale 2 Puffs as instructed * SIMVASTATIN 40 MG TABLET TAKE ONE TABLET BY MOUTH ONCE* OXYGEN (HOME THERAPY) Inhale 2.5 L/min as instructe* IPRATROPIUM BROMIDE 0.02 % SO* Use 0.5 mg via nebulizer four* ISOSORBIDE MONONITRATE ER 30 * Take 1 tablet by mouth twice * Patient taking differently: Take 30 mg by mouth once janeth* APIXABAN 5 MG TABLET Take 1 tablet by mouth twice * Patient taking differently: Take 2.5 mg by mouth twice da* Problem List As Of Date 12/17/2017 Noted Resolved HOCM (hypertrophic obstructive cardiomyopathy) * More... SVT (supraventricular tachycardia) [I47.1] More... Carotid artery disease [I77.9] More... CAD (coronary artery disease) [I25.10] Essential hypertension [I10] More... Hyperlipidemia [E78.5] More... Pneumonia [J18.9] 10/27/2017 More... COPD (chronic obstructive pulmonary disease) [J* More... Sleep apnea [G47.30] More... HH (hiatus hernia) [K44.9] GERD (gastroesophageal reflux disease) [K21.9] More... Renal insufficiency [N28.9] More... Arthritis [M19.90] Numbness and tingling of right leg [R20.0, R20.* Depression [F32.9] Diabetes [E11.9] Atrial fibrillation [I48.91] INVALID FOR* More... Diabetes mellitus due to underlying condition, *INVALID FOR* More... SUMMARY [V999.95] INVALID FOR* More... Dyspnea [R06.00] INVALID FOR* More... Heart failure, systolic, acute [I50.21] INVALID FOR* More... Obesity [E66.9] INVALID FOR* More... 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*INVALID FOR* Elevated troponin [R74.8] INVALID FOR* COPD with acute exacerbation (HCC) [J44.1] INVALID FOR* Acute on chronic respiratory failure with hypox*INVALID FOR* Encounter Status:Closed by CINDY LEHMAN on 12/18/17 CASE MANAGEM Observed: 12/15/2017 Status: COMPLETED Source: [place] 3:18 PM CLINIC OTHER CAMPUS REPOSITORY HNO ID: [id number] Author: Vanessa Loomis (Rn) ALLYSON Gonzalez Service: Case Management Author Type: Registered Nurse Type: Care Mgt Progress Note Filed: 12/15/2017 3:29 PM Note Text: CARE MANAGEMENT DISCHARGE NOTE SERVICE DATE: 12/15/2017 SERVICE TIME: 3:19 PM LOS: 5 days Admission Date: 12/10/2017 DISCHARGE ARRANGEMENT (list agency and phone number) Home care Provider: [facility] CAREGIVER ASSESSMENT: Caregiver is ready, willing and able to meet the patient's needs as recommended by the inter-professional team? Yes Patient's transition needs and plan for meeting these needs: self care, HHC Does the patient have an acute stroke diagnosis, or has the patient had a stroke during this admission? No HANDOFF COMMUNICATION: bedside RN Meenakshi CHU Remi Marlon [phone] this note routed to her. TRANSPORTATION ARRANGEMENTS: Car family ADDITIONAL CONTACT RESOURCES: Chronic 2.5 L n/c with [employer] , family to bring portable for dc needs. From home with dtr. Pt is an assist with ADL's. Dtr is able to assist 10/05. Discharge Information ED to Hosp-Admission (Current) from 12/10/2017 in [facility] Medical Follow-Up Appointment Specialty PCP / patient will see the certified nurse practitioner in the same practice as Dr. Jameson Kamara Provider Name ELÍAS Mayorga Dr. did not have availability within requested timeframe Address [address] [place] [address] Practice check in is located in the [facility], [place] [address] Appointment Date 12/21/17 Appointment Time 1:00PM Additonal Instructions Patient should bring the following to appointment: Picture ID, Insurance Card, Copay (if applicable) and Medications List. Please provide a minimum of 24 hours' notice for cancelations/rescheduling. Home Health Care Agency [facility] IM letter given and explained to Luz and her daughter on 12/15/17 SIGNATURE: Vanessa Gonzalez RN PATIENT NAME: Luz Baca DATE: December 15, 2017 TIME: 3:18 PM PAGER/CONTACT #: [phone] CNDS Observed: 12/15/2017 Status: COMPLETED Source: [place] 2:07 PM CLINIC OTHER CAMPUS REPOSITORY HNO ID: [id number] Author: Peyman Guerrero Service: Hospital Medicine Author Type: Physician Type: Discharge Summaries Filed: 12/15/2017 2:13 PM Note Text: My Hospital Stay and Summary This is a summary of your hospital stay. Please read it carefully and share it with your family and healthcare providers. Date of Admission: 12/10/2017 Date of Discharge: 12/15/17 Where I Will be Going after Discharge: Home with Home Health Care My Condition at Discharge: Stable My Doctors and Medical Team: ? My Main Hospital Doctor: Peyman Guerrero ? My Primary Care Physician (Family Doctor): Jameson Kamara MD ? Other Medical Team Members: Aviation Medicine Specialist: consult ? Endocrine: consult ? Cement Based Materials Pump Tender: consult The Reason I was in the Hospital/Main Diagnosis: Copd exacerbation, possible PNA and CHf exacerbation Summary of What Happened When in the Hospital: HPI: This is a 77 year old female with a hx of hypertrophic Cardiomyopathy s/p myomectomy , SVT, Afib, CAD, CABG (pacer/defibrillator), COPD (on 2.5 home O2), HTN, and sleep apnea. Admitted Because of progressive dyspnea at rest, dyspnea on exertion,orthopnea,praoxsymal nocturnal dyspnea, weight gain (on pound in a week). Has cough initially productive of clear phlegm but became yellowish 2 days ago,wheezing,fever 102 a few days ago. Urinating a lot. Has some dysuria. Feels very weak.Have fallen 3 times since March last year.Had head injury with one of the falls . Have been progressively declining since then. ? ? Was seen at [place] ED and placed on Zpack, prednisone, and tamiflu on 12/06. Have gotten progressively worse since then. She is normally on 2.5 liters O2 but has required more in the past week. Patient was seen by her primary care doctor who wanted her further evaluated at [facility]. ? Hospital course: She had been admitted with copd exacerbation, possible pneumonia and CHF exacerbation, has been treated with breathing treatments, steroids, antibiotics and lasix. She had seen by the cardiology, pulmonary and endocrinology. She is improved slowly. Cultures have been negative. Legionella,strept pneumonia ,procal ?Negative ,sputum culture could not be done ,?mycoplasma negative . Her work up- CXR findings of Small left pleural effusion with left basilar atelectasis and/or consolidation. Stable cardiomegaly. CT chest Linear densities RIGHT middle lobe and LEFT lung base consistent with atelectasis and/or fibrosis. ?Nonspecific groundglass airspace disease posterior RIGHT lower lobe base. Left pleural thickening with calcific a cyst. ?This may be due to remote Hemothorax.Cardiomegaly. She is feeling better. She is back to baseline oxygen 2.5 lts oxygen. Lungs are clear to ascultation now. Able to get to rest room with out any difficulty. PT recommended home PT/OT. Continue to take tapering steroids, antibiotics, continue breathing treatments at home, f/u with pulmonary, cardiology and pcp in 1-2 weeks. 12/15/17 1006 12/15/17 1016 12/15/17 1143 12/15/17 1300 BP: 142/70 Pulse: 68 68 67 Resp: Temp: 36.6 ?C (97.9 ?F) TempSrc: Oral SpO2: 95% 91% Weight: Height: 172.7 cm (5' 8) PHYSICAL EXAMINATION General: Alert and oriented, no distress, pleasant and cooperative. Heart: Regular, normal S1 and S2, no murmurs, rubs, or gallops Lungs: Clear to auscultation bilaterally Abdomen: Benign Extremities: Feet/ankles without edema, posterior tibial pulses full and symmetrical CBC, Coags, BMP, Mg, Phos Recent Labs 12/15/17 0512 12/14/17 0554 12/13/17 0522 WBC 16.09* 13.07* 17.39* HB 14.8 14.7 14.5 HCT 48.0* 47.4* 46.4* PLT 236 216 231 NA 138 138 136 K 5.2* 5.2* 4.8 CHLOR 91* 91* 89* CO2 32* 36* 37* BUN 76* 75* 74* CREAT 1.78* 1.74* 1.81* GLUC 212* 257* 169* CA 9.1 8.7 8.7 MG 2.4* 2.3 2.1 Luz Baca Home Medication Instructions ETHEL:[id number] Printed on:12/15/17 1419 Medication Information albuterol (PROVENTIL) 5 mg/mL nebu Inhale 0.5 mL as instructed one time only for 1 dose. 1 DOSE NOW - BACK OFFICE. PLACE 0.5 ML PER DROPPER AND 2.5 ML OF NORMAL SALINE INTO RESERVOIR. albuterol HFA (VENTOLIN HFA) 90 mcg/actuation inhaler Inhale 2 Puffs as instructed every 4 hours as needed. apixaban (ELIQUIS) 5 mg tab tab(s) Take 1 tablet by mouth twice daily. benzonatate (TESSALON PERLE) 100 mg capsule Take 1 capsule by mouth three times daily for 7 days. budesonide-formoterol (SYMBICORT) 160-4.5 mcg/actuation inhaler Inhale 2 Puffs as instructed twice daily. colchicine 0.6 mg capsule Take 0.6 mg by mouth once daily. Two tablets in am and 1 tablet one hour later repeat this process for 5 days doxycycline hyclate (VIBRAMYCIN) 100 mg capsule Take 1 capsule by mouth every 12 hours for 5 doses. furosemide (LASIX) 40 mg tablet Take 1 tablet by mouth once daily gabapentin (NEURONTIN) 300 mg capsule Take 2 capsules by mouth three times daily for 30 days. guaiFENesin-dextromethorphan (ROBITUSSIN DM) 100-10 mg/5 mL syrup Take 5-10 mL by mouth every 6 hours as needed for Cough. insulin aspart U-100 (NOVOLOG FLEXPEN U-100 INSULIN) 100 unit/mL inpn Inject 15 Units subcutaneously three times daily with meals. insulin glargine (LANTUS) 100 unit/mL injection Inject 30 Units subcutaneously daily at bedtime. insulin glargine (LANTUS) 100 unit/mL injection Inject 45 Units subcutaneously once daily. ipratropium (ATROVENT) 0.02 % nebulizer solution Use 0.5 mg via nebulizer four times daily. isosorbide mononitrate ER (IMDUR) 30 mg 24 hr tablet Take 1 tablet by mouth twice daily. nitroglycerin sublingual (NITROQUICK) 0.4 mg SL tablet Dissolve 1 tablet under the tongue every 5 minutes as needed. OXYGEN, HOME THERAPY, Inhale 2.5 L/min as instructed as directed. pantoprazole DR (PROTONIX) 40 mg tablet Take 1 tablet by mouth twice daily before meals (0600/1600). potassium chloride ER (K-DUR, KLOR-CON) 10 mEq tablet TAKE ONE TABLET BY MOUTH DAILY WITH BREAKFAST predniSONE (DELTASONE) 10 mg tablet Take 40 mg daily 3 days then 30 mg daily 3 days then 20 mg daily 3 days then 10 mg daily 3 days simvastatin (ZOCOR) 40 mg tablet TAKE ONE TABLET BY MOUTH ONCE DAILY AT BEDTIME tiotropium bromide (SPIRIVA RESPIMAT) 2.5 mcg/actuation mist Inhale 2 Puffs as instructed once daily. Other Problem(s)/Diagnosis: Active Problems: Diabetes mellitus due to underlying condition, uncontrolled, with stage 3 chronic kidney disease, with long-term current use of insulin (HCC) Acute exacerbation of CHF (congestive heart failure) (HCC) Acute on chronic combined systolic and diastolic CHF (congestive heart failure) (HCC) Elevated troponin COPD with acute exacerbation (HCC) Acute on chronic respiratory failure with hypoxia (HCC) Resolved Problems: * No resolved hospital problems. * Operations Performed While in the Hospital: None Important Tests/Procedures: No procedures performed Instructions for My Care at Home or Healthcare Facility These instructions explain what you or your student career development specialist need to do to continue your care at home or at another healthcare facility ? Please go over these instructions with your nurse and student career development specialist. ? If you are not sure about something, please ask. Additional Health Information I Need to Know After I Leave the Hospital:See attached sheet for additional instructions. Please follow the printed instructions given to you by your doctor or nurse. Pain Management: No pain management is needed Wound Care/Surgical Site Care: None Supplies or Equipment I Need: Oxygen Diet (What I Can Eat): Resume pre-hospital diet Activity and Exercise: (When I can drive, return to work) Resume pre-hospital activity Please follow the printed instructions given to you by your doctor/nurse. Follow-Up Appointment Reminders: (A list of any scheduled appointments is at the end of this document) Call during normal business hours for your follow up appointment(s) Test Results Not Available at this Time: No pending results Electronically Signed: Peyman Guerrero MD CONSULT PROG Observed: 12/15/2017 Status: COMPLETED Source: [place] 12:35 PM CLINIC OTHER CAMPUS REPOSITORY O ID: [id number] Author: Maye Sevilla Service: Pulmonary Disease Author Type: Physician Type: Consult Progress Note Filed: 12/15/2017 12:43 PM Note Text: [facility] CONSULT PROGRESS NOTE SERVICE DATE: 12/15/2017 ASSESSMENT:? Patient is getting discharged home today. She stated she has home oxygen she has nebulizer treatment at home Acute on chronic hypoxemic and hypercapnic respiratory failure, improving persistent cough, with sputum production COPD with exacerbation failed outpatient treatment, Acute exacerbation of congestive heart failure Treated recently with Tamiflu Linear bilateral atelectasis seen on CT scan groundglass airspace disease right lower lobe, ? pneumonia Left pleural calcification Elevated NT proBNP 4154 ? Hypertrophic Cardiomyopathy, s/o myomectomy Supraventricular tachycardia Atrial fibrillation CABG Status post defibrillator insertion Hypertension morbid obesity Sleep apnea, not on CPAP therapy Negative influenza screening Streptococcal pneumonia serology negative, Legionella antigen in urine negative negative mycoplasma serology History of nicotine dependence ?? RECOMMENDATIONS: Continue oxygen supplementation continue tapering steroids Continue course of doxycycline total of 7 days Continue Tessalon Perles and Robitussin for cough Consider codeine po for persistent cough Resume home inhaler upon discharge: Spiriva and Symbicort Home dose of diuresis DVT prophylaxis ? Plan discussed in detail with patient, RN and primary attending. Patient verbalizes understanding and is in agreement with the current management plan. Total time spent in patient care includes but is not limited to patient/ family discussions, collaborative discussions with other healthcare providers, review of medical records, review of laboratory tests, radiology images/ results, microbiology and pathology data. Maye Sevilla MD Staff, Respiratory [facility] Pager #[phone] SUBJECTIVE CHIEF COMPLAINT: Shortness of breath INTERVAL HPI:Luz Baca is a 77 year old female status since previous days visit has been about the same. Continues to have cough with sputum production.. No fevers, chills, night sweats, chest pain, SOB, abd pain or leg swelling. No events over night. MEDICATIONS: Current Facility-Administered Medications: doxycycline hyclate 100 mg cap(s) (VIBRAMYCIN) 100 mg ORAL q 12 H cefdinir 300 mg (OMNICEF) 300 mg ORAL BID sodium chloride 0.65 % 2 Parker (AYR, OCEAN) 2 Parker EACH NOSTRIL PRN insulin glargine 30 Units injection (long acting) (LANTUS) 30 Units SUBCUTANEOUS AT BEDTIME pantoprazole DR 40 mg tab(s) (PROTONIX) 40 mg ORAL BID AC (0600/1600) benzonatate 100 mg cap(s) (TESSALON PERLE) 100 mg ORAL TID furosemide 40 mg tab(s) (LASIX) 40 mg ORAL DAILY apixaban 5 mg tab(s) (ELIQUIS) 5 mg ORAL BID guaiFENesin-dextromethorphan 100-10 mg/5 mL 5-10 mL oral liquid (ROBITUSSIN DM) 5-10 mL ORAL q 6 H PRN guaiFENesin 600 mg ER tab(s) (MUCINEX) 600 mg ORAL q 12 H insulin lispro injection (rapid acting) (HumaLOG) SUBCUTANEOUS w MEALS insulin lispro injection (rapid acting) (HumaLOG) SUBCUTANEOUS AT BEDTIME gabapentin 600 mg cap(s) (NEURONTIN) 600 mg ORAL BID simvastatin 40 mg tab(s) (ZOCOR) 40 mg ORAL AT BEDTIME colchicine 0.6 mg tab(s) 0.6 mg ORAL DAILY isosorbide mononitrate ER 30 mg tab(s) (IMDUR) 30 mg ORAL DAILY 0.9% NaCl 3-5 mL 3-5 mL INTRAVENOUS q 12 H 0.9% NaCl 2-10 mL 2-10 mL INTRAVENOUS q 12 H ipratropium-albuterol 3 mL nebulizer solution (DUONEB) 3 mL INHALATION q 4 H while awake methylPREDNISolone sod succinate(PF) 40 mg injection (Solu- MEDROL) 40 mg INTRAVENOUS q 12 H dextrose 40 % 15 g (INSTA-GLUCOSE) 15 g ORAL PRN Or glucagon 1 mg injection (GLUCAGEN) 1 mg INTRAMUSCULAR PRN Or dextrose 50% in water 25 mL syringe 12.5 g INTRAVENOUS PRN fluticasone-vilanterol 100-25 mcg/dose 1 Inhalation (BREO ELLIPTA) 1 Inhalation INHALATION DAILY CURRENT ALLERGIES: ALLERGIES Allergen Reactions - Latex Rash, Itching Itching and welts. No wheezing or shortness of breath. - Penicillins Rash, Itching Tolerated ceftriaxone during 11/2017 admission - Tetracycline GI Upset Emesis and diarrhea. - Atorvastatin Unknown - Bactrim [Sulfametho* Unknown I don't remember. - Codeine Unknown - Dilaudid [Hydromorp* Unknown - Meperidine - Pentazocine - Pioglitazone Unknown - Propoxyphene Patient Vitals for the past 24 hrs: BP Temp Temp src Pulse Resp SpO2 Weight 12/15/17 1143 142/70 36.6 ?C (97.9 ?F) Oral 67 22 91 % - 12/15/17 1016 - - - 68 18 - - 12/15/17 1006 - - - 68 18 95 % - 12/15/17 0749 164/66 36.7 ?C (98.1 ?F) Oral 67 22 91 % - 12/15/17 0714 - - - - - - 100.1 kg (220 lb 11.2 oz) 12/15/17 0353 139/68 36.3 ?C (97.3 ?F) Oral 63 18 92 % - 12/14/17 2245 151/69 36.6 ?C (97.9 ?F) Oral 66 16 93 % - 12/14/17 2216 - - - 64 18 - - 12/14/178 - - - 63 18 93 % - 12/14/17 1935 154/63 36.5 ?C (97.7 ?F) Oral 64 16 95 % - 12/14/17 1835 - - - 63 18 - - 12/14/17 1826 - - - 66 18 95 % - 12/14/17 1652 144/57 36.3 ?C (97.3 ?F) Oral 64 20 93 % - 12/14/17 1412 - - - 60 16 94 % - 12/14/17 1404 - - - 61 16 93 % - Intake/Output Summary (Last 24 hours) at 12/15/17 1238 Last data filed at 12/15/17 1230 Gross per 24 hour Intake 1680 ml Output 4000 ml Net -2320 ml OBJECTIVE PHYSICAL EXAM: BP 142/70 Pulse 67 Temp (Src) 97.9 (Oral) Resp 22 Wt 220 lb 11.2 oz (100.1kg) SpO2 91% General appearance: Obese, well appearing, alert, in no acute distress Respiratory: Positive findings: And expiratory wheezing Cardiovascular: Negative. RRR without murmur, gallop, or rubs. No ectopy, pulses are normal, no peripheral edema Abdomen: Soft, non tender, non distended. Normal bowel sounds. Extremities: No deformities, no clubbing DATA Diagnostic tests reviewed for today's visit, films/specimens were personally reviewed by me: Most recent labs CBC, Coags, BMP, Mg, Phos Recent Labs 12/15/17 0512 12/14/17 0554 12/13/17 0522 WBC 16.09* 13.07* 17.39* HB 14.8 14.7 14.5 HCT 48.0* 47.4* 46.4* PLT 236 216 231 NA 138 138 136 K 5.2* 5.2* 4.8 CHLOR 91* 91* 89* CO2 32* 36* 37* BUN 76* 75* 74* CREAT 1.78* 1.74* 1.81* GLUC 212* 257* 169* CA 9.1 8.7 8.7 MG 2.4* 2.3 2.1 Liver Function, Amylase, AND Lipase Recent Labs 12/15/17 0512 12/14/17 0554 12/13/17 0522 TPROT 7.5 7.6 7.6 ALB 4.1 3.8* 3.9 ALT 21 19 20 AST 25 21 19 ALKPHOS 121* 108 99 TBILI 0.3 0.3 0.3 Cardiac Enzymes ABGs SIGNATURE: Maye Sevilla MD PATIENT NAME: Luz Baca DATE: December 15, 2017 TIME: 12:38 PM PAGER/CONTACT #: [phone] CONSULT PROG Observed: 12/15/2017 Status: COMPLETED Source: [place] 11:27 AM CLINIC OTHER CAMPUS REPOSITORY HNO ID: [id number] Author: Shruti Nair Service: Endocrinology Author Type: Physician Type: Consult Progress Note Filed: 12/15/2017 12:36 PM Note Text: DIABETES PROGRESS NOTE PATIENT NAME: Luz Baca SERVICE DATE: 12/15/2017 ASSESSMENT AND PLAN Ms. Baca is a 77 year old female with a 15 year history of Diabetes Mellitus Type 2 hyperglycemia who was admitted on 12/10/2017 for acute exacerbation of COPD Uncontrolled DM-2: Steroid induced hyperglycemia She had a hypoglycemia event yesterday Decrease AM lantus dose to 45 units, continue lantus 30 units qHS Decrease Humalog to 15 units with meals Monitor blood sugar QAC/HS Notify endocrinology if BG < 80 or > 200 Interval HPI Hypoglycemia yesterday evening She was symptomatic and concerned regarding that Reports low carb intake in the hospitalization, since she has been on low carb controlled diet Tolerating PO intake PAST MEDICAL HISTORY: PAST MEDICAL HISTORY Diagnosis Date - Arthritis - Atrial fibrillation (HCC) - CAD (coronary artery disease) stents x9, defibrillator, CABG. Seeing Dr. Cardona - Cardiac defibrillator in place - Cardiomegaly - Carotid artery disease ([facility]) left - CKD (chronic kidney disease), stage IV ([facility]) - COPD (chronic obstructive pulmonary disease) ([facility]) Dr. Cruz - Depression - Diabetes ([facility]) - Diabetic neuropathy ([facility]) - GERD (gastroesophageal reflux disease) - Gout - HH (hiatus hernia) - HOCM (hypertrophic obstructive cardiomyopathy) ([facility]) - HTN (hypertension) - Hyperlipidemia - Morbid obesity with BMI of 40.0-44.9, adult ([facility]) - Pacemaker - Pneumonia h/o pneumonia/bronchitis - Renal insufficiency 2003 post op - Sleep apnea 2011 not on CPAP, unable to tolerate mask 02/2017 - SVT (supraventricular tachycardia) ([facility]) NSVT and questionable VT in 2003 post op CURRENT MEDICATION: Current Facility-Administered Medications: doxycycline hyclate 100 mg cap(s) (VIBRAMYCIN) 100 mg ORAL q 12 H Peyman Cesar 100 mg at 12/15/17 0816 cefdinir 300 mg (OMNICEF) 300 mg ORAL BID Peyman Cesar 300 mg at 12/15/17 0816 sodium chloride 0.65 % 2 Parker (AYR, OCEAN) 2 Parker EACH NOSTRIL PRN Storm Hernandezm 2 Parker at 12/13/17 0828 insulin lispro 21 Units injection (rapid acting) (HumaLOG) 21 Units SUBCUTANEOUS TID w MEALS Som Jodie 21 Units at 12/15/17 0820 insulin glargine 30 Units injection (long acting) (LANTUS) 30 Units SUBCUTANEOUS AT BEDTIME Som Jodie 30 Units at 12/14/172035 pantoprazole DR 40 mg tab(s) (PROTONIX) 40 mg ORAL BID AC (0600/1600) Gloria A Chukwuani 40 mg at 12/15/1728 benzonatate 100 mg cap(s) (TESSALON PERLE) 100 mg ORAL TID Gloria Loomis Chukwuani 100 mg at 12/15/17815 furosemide 40 mg tab(s) (LASIX) 40 mg ORAL DAILY Clay Raya Amalfitano 40 mg at 12/15/17815 apixaban 5 mg tab(s) (ELIQUIS) 5 mg ORAL BID Gloria Ebonie Chukwuani 5 mg at 12/15/17815 guaiFENesin-dextromethorphan 100-10 mg/5 mL 5-10 mL oral liquid (ROBITUSSIN DM) 5-10 mL ORAL q 6 H PRN Gloria Loomis Chukwuani 10 mL at 12/13/17 0442 guaiFENesin 600 mg ER tab(s) (MUCINEX) 600 mg ORAL q 12 H Gloria A Chukwuani 600 mg at 12/15/17815 insulin glargine 50 Units injection (long acting) (LANTUS) 50 Units SUBCUTANEOUS DAILY Som Jodie 50 Units at 12/15/17814 insulin lispro injection (rapid acting) (HumaLOG) SUBCUTANEOUS w MEALS Som Jodie 3 Units at 12/15/17815 insulin lispro injection (rapid acting) (HumaLOG) SUBCUTANEOUS AT BEDTIME Som Jodie 1 Units at 12/14/172035 gabapentin 600 mg cap(s) (NEURONTIN) 600 mg ORAL BID Gloria A Chukwuani 600 mg at 12/15/17815 simvastatin 40 mg tab(s) (ZOCOR) 40 mg ORAL AT BEDTIME Gloria A Chukwuani 40 mg at 12/14/172035 colchicine 0.6 mg tab(s) 0.6 mg ORAL DAILY Gloria A Chukwuani 0.6 mg at 12/15/17814 isosorbide mononitrate ER 30 mg tab(s) (IMDUR) 30 mg ORAL DAILY Gloria A Chukwuani 30 mg at 12/15/17 0816 0.9% NaCl 3-5 mL 3-5 mL INTRAVENOUS q 12 H Gloria A Chukwuani 5 mL at 12/14/17 0928 0.9% NaCl 2-10 mL 2-10 mL INTRAVENOUS q 12 H Gloria A Chukwuani 10 mL at 12/15/17 0816 ipratropium-albuterol 3 mL nebulizer solution (DUONEB) 3 mL INHALATION q 4 H while awake Gloria A Chukwuani 3 mL at 12/15/17 1006 methylPREDNISolone sod succinate(PF) 40 mg injection (Solu- MEDROL) 40 mg INTRAVENOUS q 12 H Gloria A Chukwuani 40 mg at 12/15/17 0816 dextrose 40 % 15 g (INSTA-GLUCOSE) 15 g ORAL PRN Gloria A Chukwuani Or glucagon 1 mg injection (GLUCAGEN) 1 mg INTRAMUSCULAR PRN Gloria A Chukwuani Or dextrose 50% in water 25 mL syringe 12.5 g INTRAVENOUS PRN Gloria A Chukwuani fluticasone-vilanterol 100-25 mcg/dose 1 Inhalation (BREO ELLIPTA) 1 Inhalation INHALATION DAILY Gloria A Chukwuani 1 Inhalation at 12/15/17 0622 CURRENT ALLERGIES: Allergies As of Date: 12/10/2017 Allergen Noted Reaction LATEX 05/17/2017 Rash and Itching PENICILLINS 07/14/2004 Rash and Itching TETRACYCLINE 09/29/2010 GI Upset ATORVASTATIN 05/17/2017 Unknown BACTRIM [SULFAMETHOXAZOLE-TRIMETH*05/17/2017 Unknown CODEINE 05/17/2017 Unknown DILAUDID [HYDROMORPHONE (BULK)] 05/17/2017 Unknown MEPERIDINE 07/14/2004 PENTAZOCINE 07/14/2004 PIOGLITAZONE 05/17/2017 Unknown PROPOXYPHENE 07/14/2004 Fully Assessed 12/10/2017 COMPLETE REVIEW OF SYSTEMS: General: no fever, chills or acute changes in weight in the last 6 months Skin: no rashes, pruritis or dry skin Cardiac: denies chest pain, heart palpitations or orthopnea Pulmonary: denies wheezing, productive cough or exertional dyspnea GI: denies nausea, vomiting, diarrhea or constipation Neuro: denies numbnes/tingling in hands or feet and denies seizures Musc: denies history of upper or lower extremity weakness Endocrine: denies polyuria, polydipsia, nocturia, blurry vision or excessive fatigue Hematology: Negative for anemia, easy bleeding and bruising. OBJECTIVE PHYSICAL EXAM: BP 164/66 Pulse 68 Temp 36.7 ?C (98.1 ?F) (Oral) Resp 18 Wt 100.1 kg (220 lb 11.2 oz) SpO2 95% BMI 33.56 kg/m2 General: Well appearing, alert, in no acute distress, well- hydrated, well nourished. Skin: skin color, texture, turgor normal, no rashes or lesions. Heart: RRR without murmur, gallop, or rubs. Pulmonary: Lungs clear to auscultation. No wheezing, rhonchi, rales Abdomen: soft, non-tender, positive bowel sounds Extremities: no edema, no calluses or ulcers present. DATA: Diagnostic tests reviewed for today: Recent Labs 12/15/17 0714 12/14/17 2019 12/14/17 1759 12/14/17 1649 12/14/17 1158 12/14/17 0701 12/13/17 2123 12/13/17 2057 12/13/17 1650 12/13/17 1159 12/13/17 0724 12/12/17 2046 12/12/17 1722 12/12/17 1208 PCGLUCOSE 189* 117* 118* 59* 171* 229* 113* 64* 94 120* 150* 78 135* 389* Glucose, Point of Care Date Value Ref Range Status 12/15/2017 189 (A) 65 - 100 mg/dL Final Comment: Meter ID:[id number] SIGNATURE: Shruti Nair MD DATE: December 15, 2017 COMP METABOLIC PANEL Collected: 12/15/2017 Status: F Source: [place] 5:12 AM CLINIC OTHER CAMPUS REPOSITORY TYPE CODE TESTS RESULT OUT OF REFERENCE UNITS RANGE LAB TP 6.3-8.0 g/dL Protein, Total 7.5 LAB ALB 3.9-4.9 g/dL Albumin 4.1 LAB CA 8.5-10.2 mg/dL Calcium, Total 9.1 LAB TBIL 0.2-1.3 mg/dL Bilirubin, Total 0.3 LAB ALKP 32-117 U/L Alkaline High Phosphatase 121 LAB AST 13-35 U/L AST 25 LAB GLU 74-99 mg/dL Glucose High 212 Result Comment: The [place] [employer] (ADA) provides guidance for cutoff values for fasting glucose and random glucose. The ADA defines fasting as no caloric intake for at least 8 hours. Fas ting plasma glucose results between 100 to 125 mg/dL indicate increased risk for diabetes (prediabetes). Fasting plasma glucose results greater than or equal to 126 mg/dL meet the criteria for diagnosis of diabetes. In the absence of unequivocal hyperglycemia, results should be confirmed by repeat testing. In a patient with classic symptoms of hyperglycemia or hyperglycemic crisis, random plasma glucose results greater than or equal to 200 mg/dL meet the criteria for diagnosis of diabetes. Reference: Standards of Medical Care in Diabetes 2016, [place] [employer]. Diabetes Care. 2016.39(Suppl 1). LAB BUN 7-21 mg/dL BUN High 76 LAB CRET 0.58-0.96 mg/dL Creatinine High 1.78 LAB NA 136-144 mmol/L Sodium 138 LAB K 3.7-5.1 mmol/L Potassium High 5.2 LAB CL 97-105 mmol/L Low Chloride 91 LAB CO2 22-30 mmol/L CO2 High 32 LAB AGAP 9-18 mmol/L Anion Gap 15 LAB ALT 7-38 U/L ALT 21 LAB GFRAA eGFR- Amer. 34 LAB GFRNAA . eGFR-All Other Races 28 Result Comment: eGFR (Estimated GFR) Units of measure: mL/min/1.73 meters squared eGFR is derived from the reexpressed MDRD Study equation using the following parameters: serum creatinine, age, gender and race. The creatinine assay has been calibrated to be traceable to IDMS. An eGFR <60 mL/min/1.73m2 for >3 months is consistent with chronic kidney disease. Refer to KDOQI guidelines for clinical interpretation. In patients with unstable renal function, e.g. those with acute kidney injury, the eGFR may not accurately reflect actual GFR. Performed By: #### CMP, MG1, CBC #### [facility] [address] [facility] [phone] MAGNESIUM Collected: 12/15/2017 Status: F Source: [place] 5:12 AM CLINIC OTHER CAMPUS REPOSITORY TYPE CODE TESTS RESULT OUT OF REFERENCE UNITS RANGE LAB MG 1.7-2.3 mg/dL High Magnesium 2.4 Performed By: #### CMP, MG1, CBC #### [facility] [address] [facility] [phone] CBC Collected: 12/15/2017 Status: F Source: [place] 5:12 AM [facility] REPOSITORY TYPE CODE TESTS RESULT OUT OF REFERENCE UNITS RANGE LAB WBC 3.70-11.00 k/uL WBC High 16.09 LAB RBC 3.90-5.20 m/uL RBC 5.10 LAB HGB 11.5-15.5 g/dL Hemoglobin 14.8 LAB HCT 36.0-46.0 % High Hematocrit 48.0 LAB MCV 80.0-100.0 fL MCV 94.1 LAB MCH 26.0-34.0 pG MCH 29.0 LAB MCHC 30.5-36.0 g/dL MCHC 30.8 LAB RDWCV 11.5-15.0 % RDW-CV High 16.9 LAB PLTCT 150-400 k/uL Platelet Count 236 LAB MPV 9.0-12.7 fL MPV 10.0 Performed By: #### CMP, MG1, CBC #### [facility] [address] [facility] [phone] CONSULT PROG Observed: 12/14/2017 Status: COMPLETED Source: [place] 12:33 PM [facility] REPOSITORY HNO ID: [id number] Author: Maye Sevilla Service: Pulmonary Disease Author Type: Physician Type: Consult Progress Note Filed: 12/14/2017 12:48 PM Note Text: [facility]PATIENT CONSULT PROGRESS NOTE SERVICE DATE: 12/14/2017 ASSESSMENT: Acute on chronic hypoxemic and hypercapnic respiratory failure, improving persistent cough COPD with exacerbation failed outpatient treatment, Acute exacerbation of congestive heart failure Treated recently with Tamiflu Linear bilateral atelectasis seen on CT scan groundglass airspace disease right lower lobe, ? pneumonia Left pleural calcification Elevated NT proBNP 4154 Hypertrophic Cardiomyopathy, s/o myomectomy Supraventricular tachycardia Atrial fibrillation CABG Status post defibrillator insertion Hypertension morbid obesity Sleep apnea, not on CPAP therapy Negative influenza screening Streptococcal pneumonia serology negative, Legionella antigen in urine negative negative mycoplasma serology History of nicotine dependence ? RECOMMENDATIONS: Continue oxygen supplementation continue tapering steroids Continue duo nebs Continue course of antibiotics (ceftriaxone and doxycycline) Continue Tessalon Perles and Robitussin for cough Consider codeine po for persistent cough Resume home inhaler upon discharge: Spiriva and Symbicort Continue diuresis, may need twice-daily dose of Lasix IV Follow up NT proBNP Suggest echocardiogram if not previously done DVT prophylaxis Plan discussed in detail with patient, RN and primary attending. Patient verbalizes understanding and is in agreement with the current management plan. Total time spent in patient care includes but is not limited to patient/ family discussions, collaborative discussions with other healthcare providers, review of medical records, review of laboratory tests, radiology images/ results, microbiology and pathology data. Maye Sevilla MD Staff, Respiratory [facility] Pager #[phone] SUBJECTIVE CHIEF COMPLAINT: INTERVAL HPI:Luz Baca is a 77 year old female status since previous days visit has been about the same. continue having bouts of cough. No fevers, chills, night sweats, chest pain, SOB, abd pain or leg swelling. No events over night. Was able to ambulate to the restroom films by herself. Requiring 2 L/m oxygen supplementation MEDICATIONS: Current Facility-Administered Medications: sodium chloride 0.65 % 2 Parker (AYR, OCEAN) 2 Parker EACH NOSTRIL PRN insulin lispro 21 Units injection (rapid acting) (HumaLOG) 21 Units SUBCUTANEOUS TID w MEALS insulin glargine 30 Units injection (long acting) (LANTUS) 30 Units SUBCUTANEOUS AT BEDTIME pantoprazole DR 40 mg tab(s) (PROTONIX) 40 mg ORAL BID AC (0600/1600) benzonatate 100 mg cap(s) (TESSALON PERLE) 100 mg ORAL TID furosemide 40 mg tab(s) (LASIX) 40 mg ORAL DAILY apixaban 5 mg tab(s) (ELIQUIS) 5 mg ORAL BID guaiFENesin-dextromethorphan 100-10 mg/5 mL 5-10 mL oral liquid (ROBITUSSIN DM) 5-10 mL ORAL q 6 H PRN guaiFENesin 600 mg ER tab(s) (MUCINEX) 600 mg ORAL q 12 H insulin glargine 50 Units injection (long acting) (LANTUS) 50 Units SUBCUTANEOUS DAILY insulin lispro injection (rapid acting) (HumaLOG) SUBCUTANEOUS w MEALS insulin lispro injection (rapid acting) (HumaLOG) SUBCUTANEOUS AT BEDTIME gabapentin 600 mg cap(s) (NEURONTIN) 600 mg ORAL BID simvastatin 40 mg tab(s) (ZOCOR) 40 mg ORAL AT BEDTIME colchicine 0.6 mg tab(s) 0.6 mg ORAL DAILY isosorbide mononitrate ER 30 mg tab(s) (IMDUR) 30 mg ORAL DAILY 0.9% NaCl 3-5 mL 3-5 mL INTRAVENOUS q 12 H 0.9% NaCl 2-10 mL 2-10 mL INTRAVENOUS q 12 H doxycycline 100 mg in D5W 250 mL (VIBRAMYCIN) 100 mg INTRAVENOUS q 12 H ipratropium-albuterol 3 mL nebulizer solution (DUONEB) 3 mL INHALATION q 4 H while awake methylPREDNISolone sod succinate(PF) 40 mg injection (Solu- MEDROL) 40 mg INTRAVENOUS q 12 H dextrose 40 % 15 g (INSTA-GLUCOSE) 15 g ORAL PRN Or glucagon 1 mg injection (GLUCAGEN) 1 mg INTRAMUSCULAR PRN Or dextrose 50% in water 25 mL syringe 12.5 g INTRAVENOUS PRN fluticasone-vilanterol 100-25 mcg/dose 1 Inhalation (BREO ELLIPTA) 1 Inhalation INHALATION DAILY cefTRIAXone 1 g in sterile water 10 mL (ROCEPHIN) 1 g INTRAVENOUS q 24 H CURRENT ALLERGIES: ALLERGIES Allergen Reactions - Latex Rash, Itching Itching and welts. No wheezing or shortness of breath. - Penicillins Rash, Itching - Tetracycline GI Upset Emesis and diarrhea. - Atorvastatin Unknown - Bactrim [Sulfametho* Unknown I don't remember. - Codeine Unknown - Dilaudid [Hydromorp* Unknown - Meperidine - Pentazocine - Pioglitazone Unknown - Propoxyphene Patient Vitals for the past 24 hrs: BP Temp Temp src Pulse Resp SpO2 Weight 12/14/17 1119 150/70 36.6 ?C (97.8 ?F) Oral 64 20 93 % - 12/14/17 1047 - - - 65 16 - - 12/14/17 1037 - - - 63 16 94 % - 12/14/17 1007 - - - 62 16 - - 12/14/17 1001 - - - 62 16 - - 12/14/17 0752 145/64 36.8 ?C (98.2 ?F) Axillary 63 20 92 % - 12/14/17 0549 - - - 65 20 92 % - 12/14/17 0542 - - - 63 20 91 % - 12/14/17 0500 140/80 - - - - - 100.4 kg (221 lb 4.8 oz) 12/14/17 0413 (!) 121/44 36.4 ?C (97.5 ?F) Oral 66 20 95 % - 12/13/17 2319 140/60 36.4 ?C (97.5 ?F) Oral 60 20 97 % - 12/13/17 2251 - - - 62 18 - - 12/13/17 2235 - - - 64 18 97 % - 12/13/17 2056 127/95 36.4 ?C (97.5 ?F) Oral 61 20 93 % - 12/13/17 1853 - - - 66 18 - - 12/13/17 1840 - - - 66 18 95 % - 12/13/17 1557 141/60 36.3 ?C (97.3 ?F) Oral 60 22 95 % - 12/13/17 1401 - - - 60 18 - - 12/13/17 1352 - - - 63 18 93 % - Intake/Output Summary (Last 24 hours) at 12/14/17 1233 Last data filed at 12/14/17 0800 Gross per 24 hour Intake 1548 ml Output 3400 ml Net -1852 ml OBJECTIVE PHYSICAL EXAM: BP 150/70 Pulse 64 Temp (Src) 97.8 (Oral) Resp 20 Wt 221 lb 4.8 oz (100.4kg) SpO2 93% General appearance: well appearing, alert, in no acute distress Nose/Sinuses: Negative Oropharynx: Lips, mucosa, and tongue normal, teeth and gums normal, oropharynx normal Respiratory: Positive findings: wheezing Cardiovascular: Negative. RRR without murmur, gallop, or rubs. No ectopy, pulses are normal, trace peripheral edema with chronic skin changes Abdomen: Soft, non tender, non distended. Normal bowel sounds. Extremities: No deformities, no clubbing DATA Diagnostic tests reviewed for today's visit, films/specimens were personally reviewed by me: Most recent labs CBC, Coags, BMP, Mg, Phos Recent Labs 12/14/17 0554 12/13/17 0522 12/12/17 0502 WBC 13.07* 17.39* 13.74* HB 14.7 14.5 12.7 HCT 47.4* 46.4* 42.0 PLT 216 231 212 NA 138 136 138 K 5.2* 4.8 4.5 CHLOR 91* 89* 93* CO2In the 36* 37* 37* BUN 75* 74* 68* CREAT 1.74* 1.81* 1.97* GLUC 257* 169* 117* CA 8.7 8.7 8.7 MG 2.3 2.1 1.9 Liver Function, Amylase, AND Lipase Recent Labs 12/14/17 0554 12/13/17 0522 12/12/17 0502 TPROT 7.6 7.6 6.7 ALB 3.8* 3.9 3.3* ALT 19 20 19 AST 21 19 15 ALKPHOS 108 99 86 TBILI 0.3 0.3 0.3 Cardiac Enzymes ABGs SIGNATURE: Maye Sevilla MD PATIENT NAME: Luz Baca DATE: December 14, 2017 TIME: 12:33 PM PAGER/CONTACT #: [phone] PROGRESS Observed: 12/14/2017 Status: COMPLETED Source: [place] 11:54 AM CLINIC OTHER CAMPUS REPOSITORY O ID: [id number] Author: Peyman Guerrero Service: Hospital Medicine Author Type: Physician Type: Progress Notes Filed: 12/14/2017 12:03 PM Note Text: INPATIENT PROGRESS NOTE SERVICE DATE: 12/14/2017 SERVICE TIME: 11:54 AM Subjective CHIEF COMPLAINT: SOB is getting better, she feels better today but still coughing Denies any CP/epigastric discomfort No fever,chills No acute overnight issues Current hospital medications: sodium chloride 0.65 % 2 Parker (AYR, OCEAN) 2 Parker EACH NOSTRIL PRN insulin lispro 21 Units injection (rapid acting) (HumaLOG) 21 Units SUBCUTANEOUS TID w MEALS insulin glargine 30 Units injection (long acting) (LANTUS) 30 Units SUBCUTANEOUS AT BEDTIME pantoprazole DR 40 mg tab(s) (PROTONIX) 40 mg ORAL BID AC (0600/1600) benzonatate 100 mg cap(s) (TESSALON PERLE) 100 mg ORAL TID furosemide 40 mg tab(s) (LASIX) 40 mg ORAL DAILY apixaban 5 mg tab(s) (ELIQUIS) 5 mg ORAL BID guaiFENesin-dextromethorphan 100-10 mg/5 mL 5-10 mL oral liquid (ROBITUSSIN DM) 5-10 mL ORAL q 6 H PRN guaiFENesin 600 mg ER tab(s) (MUCINEX) 600 mg ORAL q 12 H insulin glargine 50 Units injection (long acting) (LANTUS) 50 Units SUBCUTANEOUS DAILY insulin lispro injection (rapid acting) (HumaLOG) SUBCUTANEOUS w MEALS insulin lispro injection (rapid acting) (HumaLOG) SUBCUTANEOUS AT BEDTIME gabapentin 600 mg cap(s) (NEURONTIN) 600 mg ORAL BID simvastatin 40 mg tab(s) (ZOCOR) 40 mg ORAL AT BEDTIME colchicine 0.6 mg tab(s) 0.6 mg ORAL DAILY isosorbide mononitrate ER 30 mg tab(s) (IMDUR) 30 mg ORAL DAILY 0.9% NaCl 3-5 mL 3-5 mL INTRAVENOUS q 12 H 0.9% NaCl 2-10 mL 2-10 mL INTRAVENOUS q 12 H doxycycline 100 mg in D5W 250 mL (VIBRAMYCIN) 100 mg INTRAVENOUS q 12 H ipratropium-albuterol 3 mL nebulizer solution (DUONEB) 3 mL INHALATION q 4 H while awake methylPREDNISolone sod succinate(PF) 40 mg injection (Solu- MEDROL) 40 mg INTRAVENOUS q 12 H dextrose 40 % 15 g (INSTA-GLUCOSE) 15 g ORAL PRN glucagon 1 mg injection (GLUCAGEN) 1 mg INTRAMUSCULAR PRN dextrose 50% in water 25 mL syringe 12.5 g INTRAVENOUS PRN fluticasone-vilanterol 100-25 mcg/dose 1 Inhalation (BREO ELLIPTA) 1 Inhalation INHALATION DAILY cefTRIAXone 1 g in sterile water 10 mL (ROCEPHIN) 1 g INTRAVENOUS q 24 H Objective PHYSICAL EXAM: BP 150/70 Pulse 64 Temp (Src) 97.8 (Oral) Resp 20 Wt 221 lb 4.8 oz (100.4kg) SpO2 93% Physical Exam Performed GENERAL: Alert, no distress, cooperative, Morbidly Obese LUNGS:Harsh breath sounds With rhonchi and wheezes, improving CARDIAC: Normal S1 and S2; no rubs, murmurs, or gallops ABDOMEN: Abdomen soft, epigastric discomfort, BS normal, EXTREMITIES: improving edema,stasis dermatitis both legs NEURO:Awake,alert,oriented x3 DATA: Diagnostic tests reviewed for today's visit: Most recent labs and imaging results. CBC, Coags, BMP, Mg, Phos Recent Labs 12/14/17 0554 12/13/17 0522 12/12/17 0502 WBC 13.07* 17.39* 13.74* HB 14.7 14.5 12.7 HCT 47.4* 46.4* 42.0 PLT 216 231 212 NA 138 136 138 K 5.2* 4.8 4.5 CHLOR 91* 89* 93* CO2 36* 37* 37* BUN 75* 74* 68* CREAT 1.74* 1.81* 1.97* GLUC 257* 169* 117* CA 8.7 8.7 8.7 MG 2.3 2.1 1.9 Assessment/Plan Active Problems: ??Acute exacerbation of CHF (congestive heart failure) ([facility]) POA: Yes ?Assessment AND?Plan: Patient with symptoms suggestive of CHF exacerbation However CXR findings of Small left pleural effusion with left basilar atelectasis and/or consolidation. Stable cardiomegaly. CT chest Linear densities RIGHT middle lobe and LEFT lung base consistent with atelectasis and/or fibrosis. ?Nonspecific groundglass airspace disease posterior RIGHT lower lobe base. Left pleural thickening with calcific a cyst. ?This may be due to remote Hemothorax.Cardiomegaly ?EF 50% on 08/11/17 Although BNP Was elevated @ 4154.It was 1513 on 11/12 with improving renal function, It does not seem That patient is in CHF exacerbation. As she is improving slowly, continue diuresis for now. Plan to wean down on lasix Appreciate input from Cardiology ?Chest pain/ ?Elevated troponin POA: Unknown ?Assessment AND?Plan: Status post CABG ?2, 07/18/04, VU to LAD, SVG to PDA PCI ?6 RCA, 2014 PCI ?3 2014 ICD, single ventricular lead with predominant pacing 2014 with revision November 2016 (beta lenny intolerances) Patient reports chronic chest pain Which is worse over weeks. EKG shows Paced ventricular rhythm,CK 58%, :MB 6 Troponin trend down . She had a stress test on 08/11/17 which shows no acute ischemia.EF 50% with apical hypokinesis /dyskinesis No new recommendations at this time, f/u cardiology input Chronic atrial fibrillation Status post cardioversion 2009 ICD, single ventricular lead with predominant pacing 2014 with revision November 2016 (beta lenny intolerances) Intermittent low HR into 40s, per cardiology this may be due to intermittent hypoxic events. Her ICD is likely set to a 40 ppm back up as most are but will check this to be sure. If she is frequently in the 40s and symptomatic plan to increase her low rate to 55 or 60 bpm. 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 Cardona upon discharge. f/u cardiology recs ?? Diabetes mellitus due to underlying condition, uncontrolled, with stage 3 chronic kidney disease, with long-term current use of insulin (HCC) POA: Yes ?Assessment AND?Plan: HBAIC 16.1 on 10/27 Fair control by endo. Continue current mgt as per endo recs, lantus 50/30 units and Humalog 21 units with meals ? CKD stage 3 Cr 1.51 improved from 2.05 on 10/28/17 Cr worse from 1.51 to 1.81 with diuresis, now improving. Since patient notes improvement with current rx, continue diuresis with current dose For now and gradually reduce dose Renally dose all meds Avoid nephrotoxins Daily BMP ?COPD with acute exacerbation (HCC) POA: Unknown ?Assessment AND?Plan: Patient rxed with azt,steroid and tamiflu w/out improvement . CXR Shows Small left pleural effusion with left basilar atelectasis and/or consolidation. Stable cardiomegaly CT chest: Linear densities RIGHT middle lobe and LEFT lung base consistent with atelectasis and/or fibrosis. ?Nonspecific groundglass airspace disease posterior RIGHT lower lobe base. Left pleural thickening with calcific a cyst. ?This may be due to remote Hemothorax.Cardiomegaly Legionella,strept pneumonia ,procal Negative ,sputum culture could not be done , mycoplasma negative . Patient notes improving symptoms on current rx Regimen Continue ceftriaxone and doxy, breathing rx ,steroids Appreciate input from pulmonology ?Acute on chronic respiratory failure with hypoxia (HCC) POA: Unknown ?Assessment AND?Plan: Patient uses 2.5liters at home now back to baseline 2.5 lts. ABG shows normal PH, respiratory acidosis with metabolic compensation Continue oxyegn supplementation to keep SPO2 92>above See rx above ?? Gout :patient complains of foot pain due to gout. No improvement since starting steroids and she is also on colchicine. However feels better since she got a higher dose of neurontin. On closer questioning ,she states her pain extends from feet to upper part of the leg . Pain is likely due to diabetic neuropathy not gout. Continue neurontin rx for neuropathy. Continue colchicine as she may have hx of gout as her uric acid level is elevated a @ 12.6 ? Dysuria: UA not suggestive of UTI.shows glycosuria and trace leucocyte esterase.Urine culture negative. If symptoms persist, wlil benefit from a rx with antifungal rx GERD:Suboptimal control with taking 40mg daily.Increased to 40mg bid ?? PAF/HOCM S/P septal myomectomy in 2003/S/P pacemaker placement,CAD/CABG /hypertension Resume home meds ?? Weakness/debility:PT reccs home PT and OT, order F2F SIGNATURE: Peyman Guerrero MD PATIENT NAME: Luz Baca DATE: December 14, 2017 TIME: 12:03 PM PAGER: [phone] PLAN OF CARE Observed: 12/14/2017 Status: COMPLETED Source: [place] 10:21 AM CLINIC OTHER CAMPUS REPOSITORY O ID: [id number] Author: Vanessa Loomis (Rn) ALLYSON Gonzalez Service: Case Management Author Type: Registered Nurse Type: Plan of Care Filed: 12/14/2017 2:34 PM Note Text: MULTIDISCIPLINARY ROUNDS SERVICE DATE: 12/14/2017 ADMISSION DATE: 12/10/2017 SERVICE TIME: 10:21 AM ANTICIPATED D/C DATE: 2-3 days Problem List: ACTIVE PROBLEM LIST Hocm (Hypertrophic Obstructive Cardiomyopathy) ([facility]) Svt (Supraventricular Tachycardia) ([facility]) Carotid Artery Disease ([facility]) Cad (Coronary Artery Disease) Essential Hypertension Hyperlipidemia Copd (Chronic Obstructive Pulmonary Disease) ([facility]) Sleep Apnea Hh (Hiatus Hernia) Gerd (Gastroesophageal Reflux Disease) Renal Insufficiency Arthritis Numbness and Tingling of Right Leg Depression Diabetes ([facility]) Atrial Fibrillation ([facility]) Diabetes Mellitus Due to Underlying Condition, Uncontrolled, With Stage 3 Chronic Kidney Disease, With Long-Term Current Use of Insulin ([facility]) Summary Dyspnea Heart Failure, Systolic, Acute ([facility]) Obesity Gout Ckd (Chronic Kidney Disease) Stage 3, Gfr 30-59 Ml/Min Pacemaker Ckd (Chronic Kidney Disease), Stage IV ([facility]) Acute Exacerbation of Chf (Congestive Heart Failure) (Hcc) Acute On Chronic Combined Systolic and Diastolic Chf (Congestive Heart Failure) (Hcc) Elevated Troponin Copd With Acute Exacerbation (Hcc) Acute On Chronic Respiratory Failure With Hypoxia ([facility]) Attendees Present at Rounds: Group Work Program Aide: Vanessa Patient: Luz Baca Staff Nurse: Delma Guerrero Needs Discussed on Rounds: Plan of Care Anticipated Discharge Disposition: Home with Home Health Care Last Vitals: BP 145/64 Pulse 62 Temp (Src) 98.2 (Axillary) Resp 16 Wt 221 lb 4.8 oz (100.4kg) SpO2 92% Per MD 2 days more slow response with COPD still SOB. PLAN Enhanced HHC ( ref sent) NEED F2F. Chronic 2.5 L n/c with [facility] currently on3L possible increase need at dc. From home with dtr. Pt is an assist with ADL's. Dtr is able to assist 10/05. Nursing: Cardiac Intervention(s) Plan: Activity Level;Diet;Monitor and Assess Vital Signs and IANDO Report Significant Changes to LIP;Monitor Labs;Monitor Rhythm Strips and EKG and Report Changes to LIP;Oxygen as Ordered;Notify LIP for Changes to Baseline Status Cardiac Goals/Outcomes: Patient Optimal Cardiac Function Evidence by: Vital Signs Stable, Control Chest Pain, Adequate Oxygenation,;CALENDER WIND UP HELPER, Cardiac Enzymes, K, Mg, Hgb/Hct Levels Within Normal;Displays No Signs of Ectopy Cardiac Goal Target Achievement Date: 12/14/17Risk for Infection Intervention(s) Plan: Assess and Administer Medications;Assess Vital Signs;Assess Signs/Symptom of Infection;Dressing Changes per Protocol;Notify LIP for Changes to Baseline Status;Provide Urinary Catheter Care Risk for Infection Goals/Outcomes: Patient Without Signs/Symptoms of Infections Risk For Infection Goal Target Achievement Date: 12/14/17 Mobility Intervention(s) Plan: [place] Safety Measures;Pain Management;Notify LIP for Changes to Baseline Status (Unexplained Decrease in IFMS Score) Mobility Patient/Family Goals: Demonstrates ability to complete transfers with least level of assist. Mobility Goal Target Achievement Date: 12/15/17 Respiratory Alteration Intervention(s) Plan: Assess and Monitor Respiratory Status;Assistive Respiratory Devices;Encourage Coughing and Deep Breathing;Notify LIP for Changes to Baseline Status;Plan Care for Frequent Rest Periods;Positioning for Maximum Lung Capacity Respiratory Alteration Goals/Outcomes: Mobilization of Secretions;Patient Demonstrates Adequate Ventilation Respiratory Goal Target Achievement Date: 12/14/17kin Intervention(s) Plan: Assess and Document Skin Condition per Protocol;Notify LIP for Changes to Baseline Status;Skin Care and Pressure Ulcer Prevention Protocol;Jamal Score Assessed per Protocol Skin Goals/Outcomes: Patient's Skin Integrity Maintained or Improved Skin Goal Target Achievement Date: 12/15/17 DOCUMENTED BY: Vanessa Gonzalez RN PATIENT NAME: Luz Baca DATE: December 14, 2017 TIME: 10:21 AM CSN: [id number] COMP METABOLIC PANEL Collected: 12/14/2017 Status: F Source: [place] 5:54 AM CLINIC OTHER CAMPUS REPOSITORY TYPE CODE TESTS RESULT OUT OF REFERENCE UNITS RANGE LAB TP 6.3-8.0 g/dL Protein, Total 7.6 LAB ALB 3.9-4.9 g/dL Low Albumin 3.8 LAB CA 8.5-10.2 mg/dL Calcium, Total 8.7 LAB TBIL 0.2-1.3 mg/dL Bilirubin, Total 0.3 LAB ALKP 32-117 U/L Alkaline Phosphatase 108 LAB AST 13-35 U/L AST 21 LAB GLU 74-99 mg/dL Glucose High 257 Result Comment: The [place] [employer] (ADA) provides guidance for cutoff values for fasting glucose and random glucose. The ADA defines fasting as no caloric intake for at least 8 hours. Fas ting plasma glucose results between 100 to 125 mg/dL indicate increased risk for diabetes (prediabetes). Fasting plasma glucose results greater than or equal to 126 mg/dL meet the criteria for diagnosis of diabetes. In the absence of unequivocal hyperglycemia, results should be confirmed by repeat testing. In a patient with classic symptoms of hyperglycemia or hyperglycemic crisis, random plasma glucose results greater than or equal to 200 mg/dL meet the criteria for diagnosis of diabetes. Reference: Standards of Medical Care in Diabetes 2016, [place] [employer]. Diabetes Care. 2016.39(Suppl 1). LAB BUN 7-21 mg/dL BUN High 75 LAB CRET 0.58-0.96 mg/dL Creatinine High 1.74 LAB NA 136-144 mmol/L Sodium 138 LAB K 3.7-5.1 mmol/L Potassium High 5.2 LAB CL 97-105 mmol/L Low Chloride 91 LAB CO2 22-30 mmol/L CO2 High 36 LAB AGAP 9-18 mmol/L Anion Gap 11 LAB ALT 7-38 U/L ALT 19 LAB GFRAA eGFR- Amer. 34 LAB GFRNAA . eGFR-All Other Races 28 Result Comment: eGFR (Estimated GFR) Units of measure: mL/min/1.73 meters squared eGFR is derived from the reexpressed MDRD Study equation using the following parameters: serum creatinine, age, gender and race. The creatinine assay has been calibrated to be traceable to IDMS. An eGFR <60 mL/min/1.73m2 for >3 months is consistent with chronic kidney disease. Refer to KDOQI guidelines for clinical interpretation. In patients with unstable renal function, e.g. those with acute kidney injury, the eGFR may not accurately reflect actual GFR. Performed By: #### CMP, MG1, CBC #### [facility] [address] [place] [address] MAGNESIUM Collected: 12/14/2017 Status: F Source: [place] 5:54 AM [facility] REPOSITORY TYPE CODE TESTS RESULT OUT OF REFERENCE UNITS RANGE LAB MG 1.7-2.3 mg/dL Magnesium 2.3 Performed By: #### CMP, MG1, CBC #### [facility] [address] [place] [address] CBC Collected: 12/14/2017 Status: F Source: [place] 5:54 AM [facility] REPOSITORY TYPE CODE TESTS RESULT OUT OF REFERENCE UNITS RANGE LAB WBC 3.70-11.00 k/uL WBC High 13.07 LAB RBC 3.90-5.20 m/uL RBC 5.07 LAB HGB 11.5-15.5 g/dL Hemoglobin 14.7 LAB HCT 36.0-46.0 % High Hematocrit 47.4 LAB MCV 80.0-100.0 fL MCV 93.5 LAB MCH 26.0-34.0 pG MCH 29.0 LAB MCHC 30.5-36.0 g/dL MCHC 31.0 LAB RDWCV 11.5-15.0 % RDW-CV High 16.6 LAB PLTCT 150-400 k/uL Platelet Count 216 LAB MPV 9.0-12.7 fL MPV 9.9 Performed By: #### CMP, MG1, CBC #### [facility] [address] [place] [address] NURSING PROG Observed: 12/13/2017 Status: COMPLETED Source: [place] 10:01 PM CLIN[facility] OTHER CAMPUS REPOSITORY HNO ID: [id number] Author: Zeina (Rn) Jacobo RN Service: (none) Author Type: Registered Nurse Type: Nursing Progress Note Filed: 12/13/2017 10:02 PM Note Text: Patients bs-64 food and beverage given with recheck at 113. Dr Feliciano notfiied with HS Lantus dose changed from 50 to 30. Will continue to monitor. CONSULT PROG Observed: 12/13/2017 Status: COMPLETED Source: [place] 6:23 PM CLIN[facility] OTHER CAMPUS REPOSITORY HNO ID: [id number] Author: Som Feliciano Service: Endocrinology Author Type: Physician Type: Consult Progress Note Filed: 12/13/2017 6:38 PM Note Text: CONSULT PROGRESS NOTE Patient Name: Luz Baca Account #: Data Unavailable Admission Date: 12/10/2017 Date of Evaluation: 12/13/2017 Time of Evaluation: 6:24 PM Luz Baca is being seen in consultation for advice and/or opinion regarding the management of Uncontrolled DM-2 with hyperglycemia worsened by steroid. INTERVAL HPI: slowly getting better, but still some cough and SOA PERTINENT ROS: REVIEW OF SYSTEMS PAIN ASSESSMENT: Negative for pain, history of chronic pain, or current treatment for a chronic pain condition. GENERAL: No weight loss, malaise or fevers HEENT: Negative for frequent or significant headaches, No changes in hearing or vision, no nose bleeds or other nasal problems NECK: Negative for lumps, goiter, pain and significant neck swelling RESPIRATORY: Cough; moist, Shortness of breath CARDIOVASCULAR: Negative for chest pain, leg swelling, hypertension, CHF or palpitations GI: No nausea, vomiting, or diarrhea MUSCULOSKELETAL: Negative for joint pain or swelling, back pain or muscle pain SKIN: Negative for lesions, rash, and itching PSYCH: Negative for sleep disturbance, mood disorder and recent psychosocial stressors HEMATOLOGY/LYMPHOLOGY: Negative for prolonged bleeding, bruising easily or swollen nodes MEDICATIONS: Current hospital medications: sodium chloride 0.65 % 2 Parker (AYR, OCEAN) 2 Parker EACH NOSTRIL PRN [START ON 12/14/2017] insulin lispro 21 Units injection (rapid acting) (HumaLOG) 21 Units SUBCUTANEOUS TID w MEALS pantoprazole DR 40 mg tab(s) (PROTONIX) 40 mg ORAL BID AC (0600/1600) benzonatate 100 mg cap(s) (TESSALON PERLE) 100 mg ORAL TID furosemide 40 mg tab(s) (LASIX) 40 mg ORAL DAILY apixaban 5 mg tab(s) (ELIQUIS) 5 mg ORAL BID guaiFENesin-dextromethorphan 100-10 mg/5 mL 5-10 mL oral liquid (ROBITUSSIN DM) 5-10 mL ORAL q 6 H PRN guaiFENesin 600 mg ER tab(s) (MUCINEX) 600 mg ORAL q 12 H insulin glargine 50 Units injection (long acting) (LANTUS) 50 Units SUBCUTANEOUS DAILY insulin glargine 50 Units injection (long acting) (LANTUS) 50 Units SUBCUTANEOUS AT BEDTIME insulin lispro injection (rapid acting) (HumaLOG) SUBCUTANEOUS w MEALS insulin lispro injection (rapid acting) (HumaLOG) SUBCUTANEOUS AT BEDTIME gabapentin 600 mg cap(s) (NEURONTIN) 600 mg ORAL BID simvastatin 40 mg tab(s) (ZOCOR) 40 mg ORAL AT BEDTIME colchicine 0.6 mg tab(s) 0.6 mg ORAL DAILY isosorbide mononitrate ER 30 mg tab(s) (IMDUR) 30 mg ORAL DAILY 0.9% NaCl 3-5 mL 3-5 mL INTRAVENOUS q 12 H 0.9% NaCl 2-10 mL 2-10 mL INTRAVENOUS q 12 H doxycycline 100 mg in D5W 250 mL (VIBRAMYCIN) 100 mg INTRAVENOUS q 12 H ipratropium-albuterol 3 mL nebulizer solution (DUONEB) 3 mL INHALATION q 4 H while awake methylPREDNISolone sod succinate(PF) 40 mg injection (Solu- MEDROL) 40 mg INTRAVENOUS q 12 H dextrose 40 % 15 g (INSTA-GLUCOSE) 15 g ORAL PRN glucagon 1 mg injection (GLUCAGEN) 1 mg INTRAMUSCULAR PRN dextrose 50% in water 25 mL syringe 12.5 g INTRAVENOUS PRN fluticasone-vilanterol 100-25 mcg/dose 1 Inhalation (BREO ELLIPTA) 1 Inhalation INHALATION DAILY cefTRIAXone 1 g in sterile water 10 mL (ROCEPHIN) 1 g INTRAVENOUS q 24 H PHYSICAL EXAM: Patient Vitals for the past 24 hrs: BP Temp Temp src Pulse Resp SpO2 Weight 12/13/17 1557 141/60 36.3 ?C (97.3 ?F) Oral 60 22 95 % - 12/13/17 1401 - - - 60 18 - - 12/13/17 1352 - - - 63 18 93 % - 12/13/17 1102 127/53 36.3 ?C (97.3 ?F) Oral 64 20 94 % - 12/13/17 0942 - - - 60 18 - - 12/13/17 0928 - - - (!) 56 18 95 % - 12/13/17 0900 - - - 60 - - - 12/13/17 0832 - - - (!) 47 - - - 12/13/17 0800 - - - - - 96 % - 12/13/17 0734 148/65 36.5 ?C (97.7 ?F) Oral 68 22 93 % - 12/13/17 0600 - - - - - - 99.9 kg (220 lb 3.2 oz) 12/13/17 0550 - - - 66 20 - - 12/13/17 0541 - - - 68 20 96 % - 12/13/17 0445 - - - - - 94 % - 12/13/17 0340 135/58 36.4 ?C (97.5 ?F) Oral 60 16 92 % - 12/13/17 0025 123/61 36.5 ?C (97.7 ?F) Oral 69 18 92 % - 12/12/17 1931 131/57 37 ?C (98.6 ?F) Oral (!) 56 20 92 % - Body mass index is 33.48 kg/(m2). GENERAL: Alert, no distress, cooperative, Obese SKIN: Skin color, texture, turgor normal. No rashes or lesions. HEAD/SINUSES: No significant findings EYES: PERRLA, EOMI NOSE: Nares normal. Septum midline. OROPHARYNX: Lips, mucosa, and tongue normal. Teeth and gums normal. Oropharynx normal. NECK: No jugulovenous distention, No carotid bruits, No thyromegaly LUNGS: Positive findings: wheezing bibasilar CARDIAC: Rate: bradycardia ABDOMEN: Abdomen soft, non-tender, BS normal, No masses or organomegaly EXTREMITIES: Extremities normal, no deformities, edema, clubbing or skin discoloration. Good capillary refill. Labs: CBC: WBC 17.39 12/13/2017 Hemoglobin 14.5 12/13/2017 Hematocrit 46.4 12/13/2017 Platelet Count 231 12/13/2017 CMP: Sodium 136 12/13/2017 Potassium 4.8 12/13/2017 BUN 74 12/13/2017 Creatinine 1.81 12/13/2017 Glucose 169 12/13/2017 COAGS: APTT 34.0 09/25/2010 PT INR 4.1 10/24/2010 URINALYSIS: Ketones, Urine Negative 12/10/2017 Nitrites Negative 12/10/2017 Specific [place], Ur 1.010 12/10/2017 Protein, Urine Negative 12/10/2017 Leukest Trace 12/10/2017 WBC, Urine 0-5 12/10/2017 SED RATE/CRP: WSR 5 07/07/2017 CRP 0.2 07/07/2017 SURGICAL PATHOLOGY: N/A FLUID ANALYSIS: N/A DATA: Component Latest Ref Rng AND Units 12/12/2017 12/12/2017 12/12/2017 12/12/2017 12/13/2017 12/13/2017 12/13/2017 8:09 AM 12:08 PM 5:22 PM 8:46 PM 7:24 AM 11:59 AM 4:50 PM Glucose, Point of Care 65 - 100 mg/dL 198 (A) 389 (A) 135 (A) 78 150 (A) 120 (A) 94 ASSESSMENT AND PLAN: Uncontrolled DM-2 worsened by steroid and infection: Good control she is since last night with couple of low side blood sugar reading. Plan: We will go down on the meal dose of Humalog to 21 units. Monitor blood sugar QAC/HS. ELECTRONICALLY SIGNED: Som Feliciano MD 12/13/2017 6:24 PM THERAPY NT Observed: 12/13/2017 Status: COMPLETED Source: [place] 3:26 PM CLINIC OTHER CAMPUS REPOSITORY HNO ID: [id number] Author: Shakila (Ot/Magali Busch Service: Occupational Therapy Author Type: Occupational Therapist Type: Therapy (PT/OT/Speech/Resp) Filed: 12/13/2017 4:44 PM Note Text: Occupational Therapy Evaluation SERVICE DATE: 12/13/2017 SERVICE TIME: 1444 to 1512 (includes chart review) ROOM: [place] [id number] Recommended Discharge Disposition: Home OT Recommended Discharge Disposition Comments: Pt is functioning below baseline and would benefit from Home OT to increase safety, ease and independence during ADLs and functional mobility for optimal return to PLOF Anticipated Discharge Needs: Physical Assist at Home;Equipment Physical Assist at Home for: Shopping;Transportation;Self Care;Safety;Meals;Laundry;Cleaning Recommended Discharge Equipment: (tub transfer bench) OT Recommendations to Nursing: To Bathroom for ADL?s /and or Toileting with Gait Belt;ADL?s in chair with Gait Belt;Transfer to Chair with Gait Belt;OOB for meals with Gait Belt;With assist of 1 person Equipment: Wheeled Walker (gait belt) OT 6 Clicks Score: 21 Precautions/Activity Restrictions: Fall Risk Precaution/Activity Restriction Comments: oxygen dependent Isolation Type: None ASSESSMENT: Tolerated Full Session Pt presents with impaired functional mobility, ADL performance, strength and functional activity tolerance (currently requiring increased O2), impacting her ability to function without increased assist from caregivers. Requires education in energy conservation due to increased noted EDMONDS with minimal activity. Pt requires no more than SBA-CGA for bed mobility, functional transfers/mobility and ADLs (except lower body bathing) at this time, however, reports to be functioning below baseline. Pt would benefit from continued OT services during acute stay and post acute stay to increase ease, safety and independence during ADLs and functional mobility. Occupational Therapy Problem List: Impaired Self Care;Decreased Activity Tolerance;Decreased Strength;Functional Mobility Impairment;Balance Impaired Patient /Caregiver Goals: Go Home Goals for Plan of Care: Able to perform HEP with: Modified Independent (for functional BUE strengthening) Grooming with: Supervision (at sink) Lower Body Dressing with: Supervision (for pants/socks/underwear) Chair Transfer with: Supervision Toilet Transfer with: Supervision Tolerate (minutes of functional activity): 20 Functional Activity with: Supervision (while demonstrating energy conserv tech w/out cues) Progress Toward Goals: Progressing as expected Rehab Potential: Good PLAN: Treatment Frequency (times per week): 3 Current admission Treatment Interventions: Education;Self Care / Home Management;Energy Conservation Training;Strengthening;Functional Mobility Training Plan of Care developed with: Patient TREATMENT INTERVENTIONS: Therapy Diagnosis: Decreased activities of daily living (ADL) Interventions Provided: Evaluation;Therapeutic Activity (13362);Self Retirement Management (91428) $ Evaluation-Low (46845) Billed Units: 1 unit Therapeutic Activity (25404) Treatment Minutes: 6 0 units Skilled Intervention(s): Instructed pt in supine to sit pushing with upper extremities to sit up with safe technique. Instructed and verbally cued pt in effective use of BUEs to scoot to EOB. Instructed and verbally cued pt in sit to stand technique with proper hand placement and body positioning at edge of bed, as pt initially attempts to pull up on walker handles. Pt instructed and verbally cued in proper posture and O2 line management during functional mobility to/from bathroom. Instructed, verbally cued and facilitated in stand to sit technique with lower extremities touching bed and reaching back for surface. Pt instructed in safe technique for sit to supine. Self Retirement Management (57562) Treatment Minutes: 9 1 unit Skilled Intervention(s): Pt educated in role of OT. Pt educated in importance of out of bed activity (active participation in daily care, sitting in chair for meals and throughout day if asymptomatic) for rehabilitation and to prevent functional decline. Pt educated and cued in assessing self for dizziness/lightheadedness upon changes in position and to allow time to accommodate to changes in position. Pt instructed and verbally cued on hand placement on sink counter for balance support during standing ADL task. Pt educated in Energy Conservation Techniques: Sitting versus standing for bathing/dressing, use of long handled adaptive equipment, frequent rest breaks. Pt provided with Energy Conservation Techniques handout. Pt educated in benefits of use of tub transfer bench for increased safety/ease with tub shower transfers and bathing. Pt educated in how to obtain tub transfer bench (i.e. Purchase on own or borrow short term from [facility]); [facility] flyer provided. Pt provided with handout of adaptive equipment. Pt educated in importance of use of call button for all needs and to call and wait for nursing/therapist assistance for all out of bed/chair activity. Education in OT POC and discharge recommendation with rationale. Total Timed Code Treatment Minutes: 15 Total Treatment Time (minutes): 23 FUNCTIONAL G CODE: OT 6 Clicks Score: 21 (12/13/171448) Self Care Current Status (G8987): CJ (12/13/171448) Self Care Goal Status (G8988): CI (12/13/171448) Based on clinical assessment and the score on the 6 Clicks Functional Assessment Tool, the G code and corresponding severity modifiers are documented above. SUBJECTIVE: Current Hospital Course: Chart reviewed; Patient is a 77 year old female presenting with SOB, productive cough, wheezing, fever, weakness x several days. Diagnosed with exac of COPD and mild CHF. PMH of cardiomyopathy, SVT, A-fib, CAD, CABG with myomectomy, pacer/defib, COPD--2.5 lpm dependent, HTN, DM, and sleep apnea. ? Patient Report: Patient sleeping in bed upon OT arrival, awakening easily with verbal cues. I just don't feel well. Patient's daughter present throughout session with patient's permission. Home Environment Patient Lives With: Family (lives in 2 bedroom apt with daughter) Assistance Available: 24 Hour (assist provided by daughter/her fiance/granddaughter) Entry To Home: Stairs;Without Rail Number Of Stairs Into Home: 2 Tub/Shower Type: tub/shower combo Laundry: daughter does per laundromat Equipment Owned: Cane;Commode-Bedside;Grab Bars-Shower;Wheeled Walker Prior Functional Level: Required Assistance;History of Falls Assistance Required With: Cleaning;Laundry;Meals;Stairs;Safety;Self Care;Shopping;Transportation;Other: See Comment Prior Functional Level Comments: Per patient: Sleeps in hospital bed, uses FWW, dtr assists with getting her in/out of the shower (stands to shower in tub), assists with bathing and dressing as patient needs. Patient homebound except for MD appointments. OBJECTIVE: Responsiveness: Alert;Awake Follows Commands: 3-step Commands;Cueing Needed Cueing to Follow Commands: Minimum Vision Deficits: Wears glasses CURRENT FUNCTIONAL STATUS: Current Activities of Daily Living Assist Level Feeding Independent (per clinical judgment) Grooming Stand By Assistance (hand hygiene at sink) Bathing Upper Body Supervision (per clinical judgment seated) Bathing Lower Body Moderate Assistance (per clinical judgment) Dressing Upper Body Supervision (per clinical judgment seated) Dressing Lower Body Stand By Assistance (to don/doff slip on shoes at EOB; CGA pants per clinical smitha) Toileting Contact Guard Assistance (per clinical judgment for standing clothing management) Functional Mobility Assist Level Rolling Supine to Sit Stand By Assistance (HOB elevated) Sit to Supine Stand By Assistance (HOB elevated) Scooting Sit to Stand Stand By Assistance (from bed to walker level) Stand to Sit Stand By Assistance (walker level to bed) Bed to Chair Toilet/Commode Functional Mobility Contact Guard Assistance (bed to bathroom to bed) Wheeled Walker -Gait belt used during functional mobility and transfers for optimal safety Hand Dominance: Right Range Of Motion: Within Functional Limits Strength: Within Functional Limits Except Location Strength Not WFL: Upper Extremity Left Upper Extremity Strength: Prox: 4-/5, distal: 4-/5 Right Upper Extremity Strength: Prox: 4-/5, distal: 4-/5 Balance: Dynamic Standing;Dynamic Sitting;Static Sitting;Static Standing Static Sitting Balance: Independent Dynamic Sitting Balance: Stand By Assistance (to Supervision) Static Standing Balance: Stand By Assistance Dynamic Standing Balance: Stand By Assistance (to CGA) Activity Tolerance: Standing Activity Standing Activity: grooming at sink; functional mobility to/from bathroom Standing Activity Tolerance (in minutes): (noted increased EDMONDS; pt reports > than baseline) Vital Signs Pre Assessment: O2 Equipment Pre O2 Equipment: Nasal Cannula Pre Oxygen Requirement: 3 L/min Please see discipline specific clinical documentation flowsheet for complete details for this therapy evaluation/treatment. Pt and nursing agreeable to OT services. At end of session, pt resting in bed with bed in lowest position. Lines/tubes/drains intact include: O2, goodson catheter, telemetry. Tray table and call light within reach. Pt's dtr in room at end of session. Nursing (RN, PCNA) notified of current pt status. SIGNATURE: MARY JO Nguyen PATIENT NAME: Luz Baca DATE: December 13, 2017 TIME: 3:26 PM PAGER: [phone] THERAPY NT Observed: 12/13/2017 Status: COMPLETED Source: [place] 3:15 PM CLINIC OTHER CAMPUS REPOSITORY HNO ID: [id number] Author: Shakila Busch (Ot/L) Service: Occupational Therapy Author Type: Occupational Therapist Type: Therapy (PT/OT/Speech/Resp) Filed: 12/13/2017 3:15 PM Note Text: OCCUPATIONAL THERAPY MISSED VISIT SERVICE DATE: 12/13/2017 SERVICE TIME: 1314 to 1319 ROOM: [place] [address] Attempted Evaluation. Patient not seen due to Test/Procedure: Pacemaker interrogation at bedside. Will re-attempt as schedule allows. SIGNATURE: MARY JO Nguyen PATIENT NAME: Luz Andersonlain DATE: December 13, 2017 TIME: 3:15 PM PAGER/CONTACT #: [phone] CONSULT PROG Observed: 12/13/2017 Status: COMPLETED Source: [place] 1:36 PM CLINIC OTHER CAMPUS REPOSITORY HNO ID: [id number] Author: Clay Garcia Service: Clinical Cardiology Author Type: Physician Type: Consult Progress Note Filed: 12/13/2017 2:30 PM Note Text: [facility] CONSULT HISTORY AND PHYSICAL Luz Baca [id number] CONSULTING SERVICE: Clay Garcia DO, MEAGAN, VINNYP, FACOI. PRIMARY SERVICE: Hospitalist ASSESSMENT / RECOMMENDATIONS / PLAN: Hospital Problem List reviewed. 1. Acute on chronic hypoxemic/hypercapnic respiratory failure Bronchitis/pneumonia/COPD CT of chest suggest atelectasis and/or fibrosis. Nonspecific groundglass interspace disease posterior right lower lobe base. Left pleural thickening. No pleural effusion or sign of CHF 2. HOCM Status post septal myomectomy at the time of CABG 2003 3. CAD Status post CABG ?2, 07/18/04, VU to LAD, SVG to PDA PCI ?6 RCA, 2014 PCI ?3 2015 Status post myocardial perfusion imaging stress test 08/11/17 with possible prior apical infarct and no ischemia, EF 50% 4. Chronic atrial fibrillation Status post cardioversion 2009 5. Ischemic cardiomyopathy ICD, single ventricular lead with predominant pacing 2014 with revision November 2016 (beta lenny intolerances) EF 50% per recent stress test 6. Obstructive sleep apnea Did not tolerate CPAP Conclusion recommendation: She does appear to be stable from a cardiac standpoint. She does not examine to be in heart failure at this time and is - 5.2 L fluid balance. She feels SOB and exam reveals rhonchi and wheezing. She does drop her rate to 40s on occasion and this may be due to intermittent hypoxic events. Her ICD is likely set to a 40 ppm back up as most are but will check this to be sure. If she is frequently in the 40s and symptomatic we can increase her low rate to 55 or 60 bpm. 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 Cardona upon discharge. Staff Signature: Clay Garcia DO, MEAGAN, VINNYP, FACJERMAINE. Date of Service: 12/13/17 Time of Service: 0945 SUBJECTIVE: CHIEF COMPLAINT/HPI: This is a 77 year old female with a history of coronary artery disease status post multiple interventions including CABG, hypertrophic obstructive cardiomyopathy treated with septal myomectomy in 2003, chronic atrial fibrillation, ischemic cardiomyopathy status post ICD, obstructive sleep apnea without treatment, hypertension, and hyperlipidemia who presents with increased dyspnea and coughing with yellow sputum productive sputum and occasional fevers and chills. She has chest discomfort after extended coughing segments. She has COPD on home oxygen of 2 half liters. She is followed by Dr. Cardona in [place] as her primary supervisor [employer]cel[employer] department. She did have CABG ?2 with a VU to LAD and SVG to PDA as well as septal myomectomy for HOCM in [facility] on 07/18/04. status post PCI ?6 to RCA in 2013 and PCI ?3 in 2014. She had ICD was single ventricular lead in 2014 and revision in November 2016. She apparently has had intolerance to CPAP, beta blockers, damion inhibitors and ARB. Her most recent ischemic assessment was 08/11/17 with MPI suggesting old apical infarct with no ischemia and EF of 50%. This was done in [facility]. MEDICATIONS: Prior to Admission Medications reviewed in EMR Current Hospital Medications reviewed in EMR ALLERGIES: ALLERGIES Allergen Reactions - Latex Rash, Itching Itching and welts. No wheezing or shortness of breath. - Penicillins Rash, Itching - Tetracycline GI Upset Emesis and diarrhea. - Atorvastatin Unknown - Bactrim [Sulfametho* Unknown I don't remember. - Codeine Unknown - Dilaudid [Hydromorp* Unknown - Meperidine - Pentazocine - Pioglitazone Unknown - Propoxyphene COMPLETE REVIEW OF SYSTEMS: PAIN ASSESSMENT: Negative for pain, history of chronic pain, or current treatment for a chronic pain condition. GENERAL: No weight loss, malaise or fevers HEENT: Negative for frequent or significant headaches, No changes in hearing or vision, no nose bleeds or other nasal problems NECK: Negative for lumps, goiter, pain and significant neck swelling RESPIRATORY: See history of present illness see history of present illness CARDIOVASCULAR: See HPI GI: Negative for abdominal discomfort, blood in stools or black stools or change in bowel habits : No history of dysuria, frequency or incontinence CARE ASSOCIATE: Negative for abnormal vaginal bleeding, abnormal vaginal discharge MUSCULOSKELETAL: Negative for joint pain or swelling, back pain or muscle pain. SKIN: Negative for lesions, rash, and itching. PSYCH: Negative for sleep disturbance, mood disorder and recent psychosocial stressors. HEMATOLOGY/LYMPHOLOGY Negative for prolonged bleeding, bruising easily or swollen nodes. ENDOCRINE: Negative for cold or heat intolerance, polyuria, polydipsia and goiter. NEURO: No history of headaches, syncope, paralysis, seizures or tremors See HPI See HPI: Remaining ROS reviewed and negative. PHYSICAL EXAM: BP 127/53 Pulse 64 Temp 36.3 ?C (97.3 ?F) (Oral) Resp 20 Wt 99.9 kg (220 lb 3.2 oz) SpO2 94% BMI 33.48 kg/m2 General: Well developed and well nourished appearance. No acute distress. Skin: No rash on chest, arms or legs. Warm, dry. Head/Eyes: Sclera clear, normal conjunctiva. EOMI. Mouth/Pharynx: Teeth: Fair dentition. No lesions. Neck: No JVD. Supple. Lungs: Diminished breath sounds with scattered rhonchi and wheezing Breasts: Deferred Heart: Normal PMI. No lifts or thrills. Regular rate and rhythm. Normal S1, S2. No S3. No S4. No murmurs. No rubs. Peripheral Vascular/Arteries: Carotid pulse normal without bruit. No abdominal bruits. No femoral bruits or hematoma. DP/Radial pulses normal. Abdomen: Soft abdomen, nontender, nondistended without mass. No hepatosplenomegaly. Normal bowel sounds. Musculoskeletal: No kyphoscoliosis. No joint deformities. Extremities: No clubbing or cyanosis. No edema. Warm digits. Neurologic/Psychiatric: Oriented to person, place, time. Normal affect. No gross focal neurologic deficits. DATA: Laboratory: Recent Labs 12/11/17 0535 12/10/17 1220 WBC 11.17* 10.08 HB 13.6 13.3 HCT 43.0 42.4 PLT 210 175 Recent Labs 12/11/17 0535 12/10/17 1220 NA 141 141 K 4.7 4.8 BUN 58* 58* CREAT 1.51* 1.52* GLUC 197* 383* MG 2.0 -- Recent Labs 12/10/17 2332 12/10/17 1856 12/10/17 1220 CK -- 86 58 MB -- 6.4* 6.0* TROPT 0.030* 0.036* 0.038* EKG: most recent image reviewed TELE: most recent recordings reviewed CXR: most recent image reviewed Echocardiogram: most recent report reviewed Cardiac Catheterization: most recent report reviewed Radiology: most recent report reviewed SIGNATURE: Clay Garcia DO PAGER: [phone] DATE of SERVICE: 12/13/2017 TIME of SERVICE: 0945 ADDENDUM 12/13/17, 1420 Device interrogation reveals possible oversensing of T waves and this was reprogrammed. Low rate is 60 ppm. No therapies delivered. She will follow up with Device clinic as soon as discharged to review further. Clay Garcia DO, FACC, FCCP, FACOI CONSULT PROG Observed: 12/13/2017 Status: COMPLETED Source: [place] 12:54 PM CLINIC OTHER CAMPUS REPOSITORY HNO ID: [id number] Author: Maye Sevilla Service: Pulmonary Disease Author Type: Physician Type: Consult Progress Note Filed: 12/14/2017 12:48 PM Note Text: RESPIRATORY [facility] IN-PATIENT CONSULT PROGRESS NOTE SERVICE DATE: 12/13/2017 ASSESSMENT: Acute on chronic hypoxemic and hypercapnic respiratory failure COPD with exacerbation failed outpatient treatment, Acute exacerbation of congestive heart failure Treated recently with Tamiflu Linear bilateral atelectasis seen on CT scan groundglass airspace disease right lower lobe, ? pneumonia Left pleural calcification Elevated NT proBNP 4154 Hypertrophic Cardiomyopathy, s/o myomectomy Supraventricular tachycardia Atrial fibrillation CABG Status post defibrillator insertion Hypertension morbid obesity Sleep apnea, not on CPAP therapy Negative influenza screening Streptococcal pneumonia serology negative, Legionella antigen in urine negative History of nicotine dependence RECOMMENDATIONS: Continue oxygen supplementation continue course of steroids, Continue duo nebs Continue course of antibiotics start tapering (ceftriaxone and doxycycline Continue diuresis, may need twice-daily dose of Lasix IV Follow up NT proBNP Suggest echocardiogram if not previously done Follow-up Mycoplasma serology DVT prophylaxis Plan discussed in detail with patient, RN and primary attending. Patient verbalizes understanding and is in agreement with the current management plan. Total time spent in patient care includes but is not limited to patient/ family discussions, collaborative discussions with other healthcare providers, review of medical records, review of laboratory tests, radiology images/ results, microbiology and pathology data. Maye Sevilla MD Staff, Respiratory [facility] Pager #[phone] SUBJECTIVE CHIEF COMPLAINT: Shortness of breath INTERVAL HPI:Luz Baca is a 77 year old female status since previous days visit has been about the same. she continue complaining about shortness of breath and wheezing. No fevers, chills, night sweats, chest pain, abd pain or leg swelling. No events over night. MEDICATIONS: Current Facility-Administered Medications: sodium chloride 0.65 % 2 Parker (AYR, OCEAN) 2 Parker EACH NOSTRIL PRN pantoprazole DR 40 mg tab(s) (PROTONIX) 40 mg ORAL BID AC (0600/1600) benzonatate 100 mg cap(s) (TESSALON PERLE) 100 mg ORAL TID furosemide 40 mg tab(s) (LASIX) 40 mg ORAL DAILY apixaban 5 mg tab(s) (ELIQUIS) 5 mg ORAL BID guaiFENesin-dextromethorphan 100-10 mg/5 mL 5-10 mL oral liquid (ROBITUSSIN DM) 5-10 mL ORAL q 6 H PRN guaiFENesin 600 mg ER tab(s) (MUCINEX) 600 mg ORAL q 12 H insulin glargine 50 Units injection (long acting) (LANTUS) 50 Units SUBCUTANEOUS DAILY insulin glargine 50 Units injection (long acting) (LANTUS) 50 Units SUBCUTANEOUS AT BEDTIME insulin lispro injection (rapid acting) (HumaLOG) SUBCUTANEOUS w MEALS insulin lispro injection (rapid acting) (HumaLOG) SUBCUTANEOUS AT BEDTIME insulin lispro 25 Units injection (rapid acting) (HumaLOG) 25 Units SUBCUTANEOUS TID w MEALS gabapentin 600 mg cap(s) (NEURONTIN) 600 mg ORAL BID simvastatin 40 mg tab(s) (ZOCOR) 40 mg ORAL AT BEDTIME colchicine 0.6 mg tab(s) 0.6 mg ORAL DAILY isosorbide mononitrate ER 30 mg tab(s) (IMDUR) 30 mg ORAL DAILY 0.9% NaCl 3-5 mL 3-5 mL INTRAVENOUS q 12 H 0.9% NaCl 2-10 mL 2-10 mL INTRAVENOUS q 12 H doxycycline 100 mg in D5W 250 mL (VIBRAMYCIN) 100 mg INTRAVENOUS q 12 H ipratropium-albuterol 3 mL nebulizer solution (DUONEB) 3 mL INHALATION q 4 H while awake methylPREDNISolone sod succinate(PF) 40 mg injection (Solu- MEDROL) 40 mg INTRAVENOUS q 12 H dextrose 40 % 15 g (INSTA-GLUCOSE) 15 g ORAL PRN Or glucagon 1 mg injection (GLUCAGEN) 1 mg INTRAMUSCULAR PRN Or dextrose 50% in water 25 mL syringe 12.5 g INTRAVENOUS PRN fluticasone-vilanterol 100-25 mcg/dose 1 Inhalation (BREO ELLIPTA) 1 Inhalation INHALATION DAILY cefTRIAXone 1 g in sterile water 10 mL (ROCEPHIN) 1 g INTRAVENOUS q 24 H CURRENT ALLERGIES: ALLERGIES Allergen Reactions - Latex Rash, Itching Itching and welts. No wheezing or shortness of breath. - Penicillins Rash, Itching - Tetracycline GI Upset Emesis and diarrhea. - Atorvastatin Unknown - Bactrim [Sulfametho* Unknown I don't remember. - Codeine Unknown - Dilaudid [Hydromorp* Unknown - Meperidine - Pentazocine - Pioglitazone Unknown - Propoxyphene Patient Vitals for the past 24 hrs: BP Temp Temp src Pulse Resp SpO2 Weight 12/13/17 1102 127/53 36.3 ?C (97.3 ?F) Oral 64 20 94 % - 12/13/17 0942 - - - 60 18 - - 12/13/17 0928 - - - (!) 56 18 95 % - 12/13/17 0900 - - - 60 - - - 12/13/17 0832 - - - (!) 47 - - - 12/13/17 0800 - - - - - 96 % - 12/13/17 0734 148/65 36.5 ?C (97.7 ?F) Oral 68 22 93 % - 12/13/17 0600 - - - - - - 99.9 kg (220 lb 3.2 oz) 12/13/17 0550 - - - 66 20 - - 12/13/17 0541 - - - 68 20 96 % - 12/13/17 0445 - - - - - 94 % - 12/13/17 0340 135/58 36.4 ?C (97.5 ?F) Oral 60 16 92 % - 12/13/17 0025 123/61 36.5 ?C (97.7 ?F) Oral 69 18 92 % - 12/12/17 1931 131/57 37 ?C (98.6 ?F) Oral (!) 56 20 92 % - 12/12/17 1803 - - - 70 18 92 % - 12/12/17 1525 (!) 121/49 - Oral 64 18 90 % - 12/12/17 1430 - - - - 20 - - 12/12/17 1421 - - - (!) 58 20 93 % - Intake/Output Summary (Last 24 hours) at 12/13/17 1255 Last data filed at 12/13/17 0800 Gross per 24 hour Intake 1320 ml Output 2300 ml Net -980 ml OBJECTIVE PHYSICAL EXAM: BP 127/53 Pulse 64 Temp (Src) 97.3 (Oral) Resp 20 Wt 220 lb 3.2 oz (99.9kg) SpO2 94% General appearance: Obese, well appearing, alert, in no acute distress Nose/Sinuses: Negative Oropharynx: Lips, mucosa, and tongue normal, teeth and gums normal, oropharynx normal Respiratory: Positive findings: wheezing Cardiovascular: Negative. RRR without murmur, gallop, or rubs. No ectopy, pulses are normal, trace peripheral edema Abdomen: Soft, non tender, non distended. Normal bowel sounds. Extremities: No deformities, no clubbing DATA Diagnostic tests reviewed for today's visit, films/specimens were personally reviewed by me: Most recent labs and imaging results. CBC, Coags, BMP, Mg, Phos Recent Labs 12/13/17 0522 12/12/17 0502 12/11/17 0535 WBC 17.39* 13.74* 11.17* HB 14.5 12.7 13.6 HCT 46.4* 42.0 43.0 PLT 231 212 210 NA 136 138 141 K 4.8 4.5 4.7 CHLOR 89* 93* 94* CO2 37* 37* 35* BUN 74* 68* 58* CREAT 1.81* 1.97* 1.51* GLUC 169* 117* 197* CA 8.7 8.7 9.8 MG 2.1 1.9 2.0 Liver Function, Amylase, AND Lipase Recent Labs 12/13/17 0522 12/12/17 0502 12/11/17 0535 TPROT 7.6 6.7 7.3 ALB 3.9 3.3* 3.8* ALT 20 19 23 AST 19 15 18 ALKPHOS 99 86 105 TBILI 0.3 0.3 0.4 Cardiac Enzymes Recent Labs 12/10/17 2332 12/10/17 1856 CK -- 86 MB -- 6.4* CT scan chest December 10, 2017 Linear densities RIGHT middle lobe and LEFT lung base consistent with atelectasis and/or fibrosis. ?Nonspecific groundglass airspace disease posterior RIGHT lower lobe base. ?Follow-up is recommended. Left pleural thickening with calcific a cyst. ?This may be due to remote hemothorax. Cardiomegaly SIGNATURE: AugustanFlory 2017 Ebonie Sevilla MD PATIENT NAME: Luz Baca DATE: December 13, 2017 TIME: 12:55 PM PAGER/CONTACT #: [phone] In PROGRESS Observed: 12/13/2017 Status: COMPLETED Source: [place] 12:50 PM CLINIC OTHER CAMPUS REPOSITORY HNO ID: [id number] Author: Peyman Guerrero Service: Hospital Medicine Author Type: Physician Type: Progress Notes Filed: 12/13/2017 1:00 PM Note Text: INPATIENT PROGRESS NOTE SERVICE DATE: 12/13/2017 SERVICE TIME: 12:50 PM Subjective CHIEF COMPLAINT: Cough and SOB slowly getting better, Denies any CP/epigastric discomfort No fever,chills HR is dropping into 40s intermittently, is aware No acute overnight issues Current hospital medications: sodium chloride 0.65 % 2 Parker (AYR, OCEAN) 2 Parker EACH NOSTRIL PRN pantoprazole DR 40 mg tab(s) (PROTONIX) 40 mg ORAL BID AC (0600/1600) benzonatate 100 mg cap(s) (TESSALON PERLE) 100 mg ORAL TID furosemide 40 mg tab(s) (LASIX) 40 mg ORAL DAILY apixaban 5 mg tab(s) (ELIQUIS) 5 mg ORAL BID guaiFENesin-dextromethorphan 100-10 mg/5 mL 5-10 mL oral liquid (ROBITUSSIN DM) 5-10 mL ORAL q 6 H PRN guaiFENesin 600 mg ER tab(s) (MUCINEX) 600 mg ORAL q 12 H insulin glargine 50 Units injection (long acting) (LANTUS) 50 Units SUBCUTANEOUS DAILY insulin glargine 50 Units injection (long acting) (LANTUS) 50 Units SUBCUTANEOUS AT BEDTIME insulin lispro injection (rapid acting) (HumaLOG) SUBCUTANEOUS w MEALS insulin lispro injection (rapid acting) (HumaLOG) SUBCUTANEOUS AT BEDTIME insulin lispro 25 Units injection (rapid acting) (HumaLOG) 25 Units SUBCUTANEOUS TID w MEALS gabapentin 600 mg cap(s) (NEURONTIN) 600 mg ORAL BID simvastatin 40 mg tab(s) (ZOCOR) 40 mg ORAL AT BEDTIME colchicine 0.6 mg tab(s) 0.6 mg ORAL DAILY isosorbide mononitrate ER 30 mg tab(s) (IMDUR) 30 mg ORAL DAILY 0.9% NaCl 3-5 mL 3-5 mL INTRAVENOUS q 12 H 0.9% NaCl 2-10 mL 2-10 mL INTRAVENOUS q 12 H doxycycline 100 mg in D5W 250 mL (VIBRAMYCIN) 100 mg INTRAVENOUS q 12 H ipratropium-albuterol 3 mL nebulizer solution (DUONEB) 3 mL INHALATION q 4 H while awake methylPREDNISolone sod succinate(PF) 40 mg injection (Solu- MEDROL) 40 mg INTRAVENOUS q 12 H dextrose 40 % 15 g (INSTA-GLUCOSE) 15 g ORAL PRN glucagon 1 mg injection (GLUCAGEN) 1 mg INTRAMUSCULAR PRN dextrose 50% in water 25 mL syringe 12.5 g INTRAVENOUS PRN fluticasone-vilanterol 100-25 mcg/dose 1 Inhalation (BREO ELLIPTA) 1 Inhalation INHALATION DAILY cefTRIAXone 1 g in sterile water 10 mL (ROCEPHIN) 1 g INTRAVENOUS q 24 H Objective PHYSICAL EXAM: BP 127/53 Pulse 64 Temp (Src) 97.3 (Oral) Resp 20 Wt 220 lb 3.2 oz (99.9kg) SpO2 94% Physical Exam Performed GENERAL: Alert, no distress, cooperative, Morbidly Obese LUNGS:Harsh breath sounds With rhonchi and wheezes CARDIAC: Normal S1 and S2; no rubs, murmurs, or gallops ABDOMEN: Abdomen soft, epigastric discomfort, BS normal, EXTREMITIES: improving edema,stasis dermatitis both legs NEURO:Awake,alert,oriented x3 DATA: Diagnostic tests reviewed for today's visit: Most recent labs and imaging results. CBC, Coags, BMP, Mg, Phos Recent Labs 12/13/17 0522 12/12/17 0502 12/11/17 0535 WBC 17.39* 13.74* 11.17* HB 14.5 12.7 13.6 HCT 46.4* 42.0 43.0 PLT 231 212 210 NA 136 138 141 K 4.8 4.5 4.7 CHLOR 89* 93* 94* CO2 37* 37* 35* BUN 74* 68* 58* CREAT 1.81* 1.97* 1.51* GLUC 169* 117* 197* CA 8.7 8.7 9.8 MG 2.1 1.9 2.0 Assessment/Plan Active Problems: ??Acute exacerbation of CHF (congestive heart failure) ([facility]) POA: Yes ?Assessment AND?Plan: Patient with symptoms suggestive of CHF exacerbation However CXR findings of Small left pleural effusion with left basilar atelectasis and/or consolidation. Stable cardiomegaly. CT chest Linear densities RIGHT middle lobe and LEFT lung base consistent with atelectasis and/or fibrosis. ?Nonspecific groundglass airspace disease posterior RIGHT lower lobe base. Left pleural thickening with calcific a cyst. ?This may be due to remote Hemothorax.Cardiomegaly ?EF 50% on 08/11/17 Although BNP Was elevated @ 4154.It was 1513 on 11/12 with improving renal function, It does not seem That patient is in CHF exacerbation. As she is improving slowly, continue diuresis for now. Plan to wean down on lasix Appreciate input from Cardiology ?Chest pain/ ?Elevated troponin POA: Unknown ?Assessment AND?Plan: Status post CABG ?2, 07/18/04, VU to LAD, SVG to PDA PCI ?6 RCA, 2014 PCI ?3 2014 ICD, single ventricular lead with predominant pacing 2014 with revision November 2016 (beta lenny intolerances) Patient reports chronic chest pain Which is worse over weeks. EKG shows Paced ventricular rhythm,CK 58%, :MB 6 Troponin trend down . She had a stress test on 08/11/17 which shows no acute ischemia.EF 50% with apical hypokinesis /dyskinesis No new recommendations at this time, f/u cardiology input Chronic atrial fibrillation Status post cardioversion 2009 ICD, single ventricular lead with predominant pacing 2014 with revision November 2016 (beta lenny intolerances) Intermittent low HR into 40s, f/u cardiology recs ?? Diabetes mellitus due to underlying condition, uncontrolled, with stage 3 chronic kidney disease, with long-term current use of insulin ([facility]) POA: Yes ?Assessment AND?Plan: HBAIC 16.1 on 10/27 Fair control by endo. Continue current mgt as per endo recc ? CKD stage 3 Cr 1.51improved from 2.05 on 10/28/17 Cr worse from 1.51 to 1.81 with diuresis. Since patient notes improvement with current rx, continue diuresis with current dose For now and gradually reduce dose Renally dose all meds Avoid nephrotoxins Daily BMP ?COPD with acute exacerbation (HCC) POA: Unknown ?Assessment AND?Plan: Patient rxed with azt,steroid and tamiflu w/out improvement . CXR Shows Small left pleural effusion with left basilar atelectasis and/or consolidation. Stable cardiomegaly CT chest: Linear densities RIGHT middle lobe and LEFT lung base consistent with atelectasis and/or fibrosis. ?Nonspecific groundglass airspace disease posterior RIGHT lower lobe base. Left pleural thickening with calcific a cyst. ?This may be due to remote Hemothorax.Cardiomegaly Legionella,strept pneumonia ,procal Negative ,sputum culture could not be done , mycoplasma pending . Patient notes improving symptoms on current rx Regimen Continue ceftriaxone and doxy, breathing rx ,steroids Appreciate input from pulmonology ?Acute on chronic respiratory failure with hypoxia (HCC) POA: Unknown ?Assessment AND?Plan: Patient uses 2.5liters at home now on 3l. ABG shows normal PH, respiratory acidosis with metabolic compensation Continue oxyegn supplementation to keep SPO2 92>above See rx above ?? Gout :patient complains of foot pain due to gout. No improvement since starting steroids and she is also on colchicine. However feels better since she got a higher dose of neurontin. On closer questioning ,she states her pain extends from feet to upper part of the leg . Pain is likely due to diabetic neuropathy not gout. Continue neurontin rx for neuropathy. Continue colchicine as she may have hx of gout as her uric acid level is elevated a @ 12.6 ? Dysuria: UA not suggestive of UTI.shows glycosuria and trace leucocyte esterase.Urine culture negative. If symptoms persist, wlil benefit from a rx with antifungal rx GERD:Suboptimal control with taking 40mg daily.Increased to 40mg bid ?? PAF/HOCM S/P septal myomectomy in 2003/S/P pacemaker placement,CAD/CABG /hypertension Resume home meds ?? Weakness/debility:PT reccs home PT SIGNATURE: Peyman Guerrero MD PATIENT NAME: Luz Baca DATE: December 13, 2017 TIME: 12:59 PM PAGER: [phone] NURSING PROG Observed: 12/13/2017 Status: COMPLETED Source: [place] 11:12 AM [facility] REPOSITORY HNO ID: [id number] Author: Amaris OsheaRn) ALLYSON Coffey Service: Nursing Author Type: Registered Nurse Type: Nursing Progress Note Filed: 12/13/2017 11:33 AM Note Text: Nursing Progress Note Patient Name: Luz Baca [place] [facility] [id number] Pt. HR drops into the 40's intermittently despite pacemaker. Page placed to Dr. Meza, awaiting return call. [id number] Meza, Last pacer/AICD interrogation in July, will place an order to interrogate. This note was completed by: Amaris Coffey RN CASE MANAGEM Observed: 12/13/2017 Status: COMPLETED Source: [place] 11:09 AM [facility] REPOSITORY HNO ID: [id number] Author: Vanessa OsheaRn) ALLYSON Gonzalez Service: Case Management Author Type: Registered Nurse Type: Care Mgt Progress Note Filed: 12/13/2017 11:14 AM Note Text: CARE MANAGEMENT PROGRESS NOTE SERVICE DATE: 12/13/2017 SERVICE TIME: 11:09 AM LOS: 3 days EMR reviewed. Met with Luz to review her dc plan. Chose 1- [facility] ( ref sent) 2- [facility]. She is on Chronic 2.5 L n/c with [employer], currently on 3L n/c possible increase needs at dc. From home with daughter. Pt is an assist with ADL's. Dtr is able to assist 10/05. SIGNATURE: Vanessa Gonzalez RN PATIENT NAME: Luz Baca DATE: December 13, 2017 TIME: 11:09 AM PAGER/CONTACT #: [phone] CBC Collected: 12/13/2017 Status: F Source: [place] 5:22 AM [facility] OTHER CAMPUS REPOSITORY TYPE CODE TESTS RESULT OUT OF REFERENCE UNITS RANGE LAB WBC 3.70-11.00 k/uL WBC High 17.39 LAB RBC 3.90-5.20 m/uL RBC 4.99 LAB HGB 11.5-15.5 g/dL Hemoglobin 14.5 LAB HCT 36.0-46.0 % High Hematocrit 46.4 LAB MCV 80.0-100.0 fL MCV 93.0 LAB MCH 26.0-34.0 pG MCH 29.1 LAB MCHC 30.5-36.0 g/dL MCHC 31.3 LAB RDWCV 11.5-15.0 % RDW-CV High 16.6 LAB PLTCT 150-400 k/uL Platelet Count 231 LAB MPV 9.0-12.7 fL MPV 9.6 Performed By: #### CBC, CMP, MG1 #### [facility] [address] [place] [address] COMP METABOLIC PANEL Collected: 12/13/2017 Status: F Source: [place] 5:22 AM [facility] OTHER [place] REPOSITORY TYPE CODE TESTS RESULT OUT OF REFERENCE UNITS RANGE LAB TP 6.3-8.0 g/dL Protein, Total 7.6 LAB ALB 3.9-4.9 g/dL Albumin 3.9 LAB CA 8.5-10.2 mg/dL Calcium, Total 8.7 LAB TBIL 0.2-1.3 mg/dL Bilirubin, Total 0.3 LAB ALKP 32-117 U/L Alkaline Phosphatase 99 LAB AST 13-35 U/L AST 19 LAB GLU 74-99 mg/dL Glucose High 169 Result Comment: The [place] [employer] Association (ADA) provides guidance for cutoff values for fasting glucose and random glucose. The ADA defines fasting as no caloric intake for at least 8 hours. Fas ting plasma glucose results between 100 to 125 mg/dL indicate increased risk for diabetes (prediabetes). Fasting plasma glucose results greater than or equal to 126 mg/dL meet the criteria for diagnosis of diabetes. In the absence of unequivocal hyperglycemia, results should be confirmed by repeat testing. In a patient with classic symptoms of hyperglycemia or hyperglycemic crisis, random plasma glucose results greater than or equal to 200 mg/dL meet the criteria for diagnosis of diabetes. Reference: Standards of Medical Care in Diabetes 2016, [place] [employer]. Diabetes Care. 2016.39(Suppl 1). LAB BUN 7-21 mg/dL BUN High 74 LAB CRET 0.58-0.96 mg/dL Creatinine High 1.81 LAB NA 136-144 mmol/L Sodium 136 LAB K 3.7-5.1 mmol/L Potassium 4.8 LAB CL 97-105 mmol/L Low Chloride 89 LAB CO2 22-30 mmol/L CO2 High 37 LAB AGAP 9-18 mmol/L Anion Gap 10 LAB ALT 7-38 U/L ALT 20 LAB GFRAA eGFR- Amer. 33 LAB GFRNAA . eGFR-All Other Races 27 Result Comment: eGFR (Estimated GFR) Units of measure: mL/min/1.73 meters squared eGFR is derived from the reexpressed MDRD Study equation using the following parameters: serum creatinine, age, gender and race. The creatinine assay has been calibrated to be traceable to IDMS. An eGFR <60 mL/min/1.73m2 for >3 months is consistent with chronic kidney disease. Refer to KDOQI guidelines for clinical interpretation. In patients with unstable renal function, e.g. those with acute kidney injury, the eGFR may not accurately reflect actual GFR. Performed By: #### CBC, CMP, MG1 #### [facility] [address] [place], [place] [id number] MAGNESIUM Collected: 12/13/2017 Status: F Source: [place] 5:22 AM [facility] REPOSITORY TYPE CODE TESTS RESULT OUT OF REFERENCE UNITS RANGE LAB MG 1.7-2.3 mg/dL Magnesium 2.1 Performed By: #### CBC, CMP, MG1 #### [facility] [address] [place], [place] [id number] CONSULT PROG Observed: 12/12/2017 Status: COMPLETED Source: [place] 4:10 PM [facility] OTHER [place] REPOSITORY HNO ID: [id number] Author: Clay Garcia Service: Clinical Cardiology Author Type: Physician Type: Consult Progress Note Filed: 12/12/2017 4:16 PM Note Text: [facility] CONSULT HISTORY AND PHYSICAL Luz Baca [id number] CONSULTING SERVICE: Clay Garcia, DO, FACC, FCCP, FACOI. PRIMARY SERVICE: Hospitalist ASSESSMENT / RECOMMENDATIONS / PLAN: Hospital Problem List reviewed. 1. Acute on chronic hypoxemic/hypercapnic respiratory failure Bronchitis/pneumonia/COPD CT of chest suggest atelectasis and/or fibrosis. Nonspecific groundglass interspace disease posterior right lower lobe base. Left pleural thickening. No pleural effusion or sign of CHF 2. HOCM Status post septal myomectomy at the time of CABG 2003 3. CAD Status post CABG ?2, 07/18/04, VU to LAD, SVG to PDA PCI ?6 RCA, 2013 PCI ?3 2015 Status post myocardial perfusion imaging stress test 08/11/17 with possible prior apical infarct and no ischemia, EF 50% 4. Chronic atrial fibrillation Status post cardioversion 2009 5. Ischemic cardiomyopathy ICD, single ventricular lead with predominant pacing 2014 with revision November 2016 (beta lenny intolerances) 6. Obstructive sleep apnea Did not tolerate CPAP Conclusion recommendation: She does appear to be stable from a cardiac standpoint. She does not examine to be in heart failure at this time and is - 4.7 L fluid balance. She feels better this am with minimal wheeze. Switch to PO diuretic as her renal function suggest prerenal numbers.. We will follow her hospital course and assist were needed from a cardiac standpoint. 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 Cardona upon discharge. Staff Signature: Clay Garcia, DO, FACC, FCCP, FACOI. Date of Service: 12/12/17 Time of Service: 1000 SUBJECTIVE: CHIEF COMPLAINT/HPI: This is a 77 year old female with a history of coronary artery disease status post multiple interventions including CABG, hypertrophic obstructive cardiomyopathy treated with septal myomectomy in 2003, chronic atrial fibrillation, ischemic cardiomyopathy status post ICD, obstructive sleep apnea without treatment, hypertension, and hyperlipidemia who presents with increased dyspnea and coughing with yellow sputum productive sputum and occasional fevers and chills. She has chest discomfort after extended coughing segments. She has COPD on home oxygen of 2 half liters. She is followed by Dr. Cardona in [place] as her primary supervisor porcelain department. She did have CABG ?2 with a VU to LAD and SVG to PDA as well as septal myomectomy for HOCM in [facility] on 07/18/04. status post PCI ?6 to RCA in 2013 and PCI ?3 in 2014. She had ICD was single ventricular lead in 2014 and revision in November 2016. She apparently has had intolerance to CPAP, beta blockers, damion inhibitors and ARB. Her most recent ischemic assessment was 08/11/17 with MPI suggesting old apical infarct with no ischemia and EF of 50%. This was done in [facility]. MEDICATIONS: Prior to Admission Medications reviewed in EMR Current Hospital Medications reviewed in EMR ALLERGIES: ALLERGIES Allergen Reactions - Latex Rash, Itching Itching and welts. No wheezing or shortness of breath. - Penicillins Rash, Itching - Tetracycline GI Upset Emesis and diarrhea. - Atorvastatin Unknown - Bactrim [Sulfametho* Unknown I don't remember. - Codeine Unknown - Dilaudid [Hydromorp* Unknown - Meperidine - Pentazocine - Pioglitazone Unknown - Propoxyphene COMPLETE REVIEW OF SYSTEMS: PAIN ASSESSMENT: Negative for pain, history of chronic pain, or current treatment for a chronic pain condition. GENERAL: No weight loss, malaise or fevers HEENT: Negative for frequent or significant headaches, No changes in hearing or vision, no nose bleeds or other nasal problems NECK: Negative for lumps, goiter, pain and significant neck swelling RESPIRATORY: See history of present illness see history of present illness CARDIOVASCULAR: See HPI GI: Negative for abdominal discomfort, blood in stools or black stools or change in bowel habits : No history of dysuria, frequency or incontinence CARE ASSOCIATE: Negative for abnormal vaginal bleeding, abnormal vaginal discharge MUSCULOSKELETAL: Negative for joint pain or swelling, back pain or muscle pain. SKIN: Negative for lesions, rash, and itching. PSYCH: Negative for sleep disturbance, mood disorder and recent psychosocial stressors. HEMATOLOGY/LYMPHOLOGY Negative for prolonged bleeding, bruising easily or swollen nodes. ENDOCRINE: Negative for cold or heat intolerance, polyuria, polydipsia and goiter. NEURO: No history of headaches, syncope, paralysis, seizures or tremors See HPI See HPI: Remaining ROS reviewed and negative. PHYSICAL EXAM: BP (!) 121/49 Pulse 64 Temp 36.7 ?C (98.1 ?F) (Oral) Resp 18 Wt 99.9 kg (220 lb 3.2 oz) SpO2 90% BMI 33.48 kg/m2 General: Well developed and well nourished appearance. No acute distress. Skin: No rash on chest, arms or legs. Warm, dry. Head/Eyes: Sclera clear, normal conjunctiva. EOMI. Mouth/Pharynx: Teeth: Fair dentition. No lesions. Neck: No JVD. Supple. Lungs: Diminished breath sounds with scattered rhonchi and wheezing Breasts: Deferred Heart: Normal PMI. No lifts or thrills. Regular rate and rhythm. Normal S1, S2. No S3. No S4. No murmurs. No rubs. Peripheral Vascular/Arteries: Carotid pulse normal without bruit. No abdominal bruits. No femoral bruits or hematoma. DP/Radial pulses normal. Abdomen: Soft abdomen, nontender, nondistended without mass. No hepatosplenomegaly. Normal bowel sounds. Musculoskeletal: No kyphoscoliosis. No joint deformities. Extremities: No clubbing or cyanosis. No edema. Warm digits. Neurologic/Psychiatric: Oriented to person, place, time. Normal affect. No gross focal neurologic deficits. DATA: Laboratory: Recent Labs 12/11/17 0535 12/10/17 1220 WBC 11.17* 10.08 HB 13.6 13.3 HCT 43.0 42.4 PLT 210 175 Recent Labs 12/11/17 0535 12/10/17 1220 NA 141 141 K 4.7 4.8 BUN 58* 58* CREAT 1.51* 1.52* GLUC 197* 383* MG 2.0 -- Recent Labs 12/10/17 2332 12/10/17 1856 12/10/17 1220 CK -- 86 58 MB -- 6.4* 6.0* TROPT 0.030* 0.036* 0.038* EKG: most recent image reviewed TELE: most recent recordings reviewed CXR: most recent image reviewed Echocardiogram: most recent report reviewed Cardiac Catheterization: most recent report reviewed Radiology: most recent report reviewed SIGNATURE: Clay Garcia DO PAGER: [phone] DATE of SERVICE: 12/12/2017 TIME of SERVICE: 1000 CASE MANAGEM Observed: 12/12/2017 Status: COMPLETED Source: [place] 2:46 PM [facility] OTHER CAMPUS REPOSITORY O ID: [id number] Author: Jia Ferreira (Delonte Means Service: (none) Author Type: Board Catcher Type: Care Mgt Progress Note Filed: 12/12/2017 2:48 PM Note Text: CARE MANAGEMENT PROGRESS NOTE SERVICE DATE: 12/12/2017 SERVICE TIME: 2:47 PM LOS: 2 days FREEDOM OF CHOICE GIVEN: Yes offered and explained Financial Disclosure Provided Pt provided HHC list. Pt agreeable and will review list and provide choice. CM to follow and support. SIGNATURE: YVES Reed PATIENT NAME: Luz Baca DATE: December 12, 2017 TIME: 2:47 PM PAGER/CONTACT #: [phone] CONSULT Observed: 12/12/2017 Status: COMPLETED Source: [place] 12:37 PM [facility] OTHER CAMPUS REPOSITORY O ID: [id number] Author: Som Feliciano Service: Endocrinology Author Type: Physician Type: Consults Filed: 12/12/2017 12:54 PM Note Text: INITIAL CONSULT ENDOCRINOLOGY SERVICE DATE: 12/12/2017 SERVICE TIME: 12:38 PM Requesting Provider: Gloria Singer Opinion/Advice Regarding: Management of Diabetes Mellitus Type 2 hyperglycemia, worsened by steroid use Service: Endocrinology Consult Service Subjective HPI: Ms. Luz Baca is a 77 year old female with a 15 year history of Diabetes Mellitus Type 2 hyperglycemia who was admitted on 12/10/2017 for acute exacerbation of COPD treated with high dose of steroid. Past medical history significant for hypertrophic Cardiomyopathy s/p myomectomy , SVT, Afib, CAD, CABG (pacer/defibrillator), COPD (on 2.5 home O2), HTN, and sleep apnea. Admitted Because of progressive dyspnea at rest, dyspnea on exertion,orthopnea,praoxsymal nocturnal dyspnea, weight gain (on pound in a week). Has cough initially productive of clear phlegm but became yellowish 2 days ago,wheezing,fever 102 a few days ago. Urinating a lot. Has some dysuria. Feels very weak.Have fallen 3 times since March last year.Had head injury with one of the falls. Have been progressively declining since then. Was seen at [place] ED and placed on Zpack, prednisone, and tamiflu on 12/06. Have gotten progressively worse since then. She is normally on 2.5 liters O2 but has required more in the past week.?Patient was seen by her primary care doctor who wanted her further evaluated at [facility] [place]. ?Patient does not exercise. Last HbA1c was 16.1% on 10/27/17. She has a family history of diabetes in her brother. She is followed by PCP for her diabetes. DIABETIC COMPLICATIONS: Neuropathy: Polyneuropathy Cardiology: CABG and CHF Pre-Admission DM Regimen: Preadmission oral agents: None Preadmission insulin regimen: Lantus 42 units BID Humalog 12 units TID and Q AC pen Sliding scale: One unit for every 50 mg/dL Self Monitoring Blood Glucose: Type of Monitor: Does not know brand Frequency of Monitoring: Three times a Day BG Values: mostly 200-300 or more last few days Hypoglycemia: No PAST MEDICAL HISTORY Diagnosis Date - Arthritis - Atrial fibrillation (HCC) - CAD (coronary artery disease) stents x9, defibrillator, CABG. Seeing Dr. Cardona - Cardiac defibrillator in place - Cardiomegaly - Carotid artery disease ([facility]) left - CKD (chronic kidney disease), stage IV ([facility]) - COPD (chronic obstructive pulmonary disease) ([facility]) Dr. Cruz - Depression - Diabetes ([facility]) - Diabetic neuropathy ([facility]) - GERD (gastroesophageal reflux disease) - Gout - HH (hiatus hernia) - HOCM (hypertrophic obstructive cardiomyopathy) ([facility]) - HTN (hypertension) - Hyperlipidemia - Morbid obesity with BMI of 40.0-44.9, adult ([facility]) - Pacemaker - Pneumonia h/o pneumonia/bronchitis - Renal insufficiency 2003 post op - Sleep apnea 2012 not on CPAP, unable to tolerate mask 02/2017 - SVT (supraventricular tachycardia) ([facility]) NSVT and questionable VT in 2003 post op PAST SURGICAL HISTORY Procedure Laterality Date - PAST SURGICAL HISTORY OF 07/18/2004 Septal myectomy and CABG x2 (DEBORAH-LAD, SVG-PDA). - PAST SURGICAL HISTORY OF left breast nodule removed - PAST SURGICAL HISTORY OF hysterectomy - PAST SURGICAL HISTORY OF perianal abscess drained - PAST SURGICAL HISTORY OF cholecystectomy - PAST SURGICAL HISTORY OF skin lesions removed FAMILY HISTORY Problem Relation Age of Onset - Hypertension Mother living at age 93, HTN - Heart Failure Mother [place] - Cancer Father age 71, lung cancer Social History Substance Use Topics - Smoking status: Former Smoker Packs/day: 2.50 Years: 43.00 Types: Cigarettes Start date: 1961 Quit date: 07/07/2004 - Smokeless tobacco: Never Used - Alcohol use No MEDICATIONS: Prescriptions Prior to Admission: azithromycin (ZITHROMAX) 250 mg tablet Take 250 mg by mouth once daily. Disp: Rfl: 0 12/09/2017 predniSONE (DELTASONE) 20 mg tablet Take 3 tablets by mouth once daily. Disp: Rfl: 0 12/09/2017 albuterol (PROVENTIL) 5 mg/mL nebu Inhale 0.5 mL as instructed one time only for 1 dose. 1 DOSE NOW - BACK OFFICE. PLACE 0.5 ML PER DROPPER AND 2.5 ML OF NORMAL SALINE INTO RESERVOIR. Disp: 1 mL Rfl: 0 12/09/2017 colchicine 0.6 mg capsule Take 0.6 mg by mouth once daily. Two tablets in am and 1 tablet one hour later repeat this process for 5 days Disp: Rfl: insulin aspart U-100 (NOVOLOG FLEXPEN U-100 INSULIN) 100 unit/mL inpn Inject 15 Units subcutaneously three times daily with meals. (Patient taking differently: Inject 12 Units subcutaneously three times daily with meals. ) Disp: Rfl: 12/09/2017 insulin glargine (TOUJEO SOLOSTAR U-300 INSULIN) 300 unit/mL (1.5 mL) inpn Take 50 units SQ nightly and 50 units SQ in the morning. (Patient taking differently: Take 60 units SQ nightly and 40 units SQ in the morning. ) Disp: Rfl: 12/09/2017 furosemide (LASIX) 40 mg tablet Take 1 tablet by mouth once daily Disp: Rfl: 12/09/2017 nitroglycerin sublingual (NITROQUICK) 0.4 mg SL tablet Dissolve 1 tablet under the tongue every 5 minutes as needed. Disp: 1 Bottle of 25 Rfl: 0 12/09/[address] (PROTONIX) 40 mg tablet TAKE ONE TABLET BY MOUTH ONCE DAILY Disp: 30 tablet Rfl: 5 12/09/2017 potassium chloride ER (K-DUR, KLOR-CON) 10 mEq tablet TAKE ONE TABLET BY MOUTH DAILY WITH BREAKFAST Disp: 30 tablet Rfl: 5 12/09/2017 gabapentin (NEURONTIN) 300 mg capsule Take 2 capsules by mouth three times daily for 30 days. (Patient taking differently: Take 600 mg by mouth twice daily. ) Disp: Rfl: 12/09/2017 budesonide-formoterol (SYMBICORT) 160-4.5 mcg/actuation inhaler Inhale 2 Puffs as instructed twice daily. Disp: 1 Inhaler Rfl: 5 12/09/2017 albuterol HFA (VENTOLIN HFA) 90 mcg/actuation inhaler Inhale 2 Puffs as instructed every 4 hours as needed. Disp: 1 Inhaler Rfl: 1 12/09/2017 tiotropium bromide (SPIRIVA RESPIMAT) 2.5 mcg/actuation mist Inhale 2 Puffs as instructed once daily. Disp: 1 Inhaler Rfl: 5 12/09/2017 simvastatin (ZOCOR) 40 mg tablet TAKE ONE TABLET BY MOUTH ONCE DAILY AT BEDTIME Disp: 30 tablet Rfl: 3 12/09/2017 OXYGEN, HOME THERAPY, Inhale 2.5 L/min as instructed as directed. Disp: Rfl: 12/09/2017 ipratropium (ATROVENT) 0.02 % nebulizer solution Use 0.5 mg via nebulizer four times daily. Disp: Rfl: 12/09/2017 isosorbide mononitrate ER (IMDUR) 30 mg 24 hr tablet Take 1 tablet by mouth twice daily. (Patient taking differently: Take 30 mg by mouth once daily. ) Disp: 60 tablet Rfl: 2 12/09/2017 apixaban (ELIQUIS) 5 mg tab tab(s) Take 1 tablet by mouth twice daily. (Patient taking differently: Take 2.5 mg by mouth twice daily. ) Disp: 60 tablet Rfl: 2 12/09/2017 Current hospital medications: pantoprazole DR 40 mg tab(s) (PROTONIX) 40 mg ORAL BID AC (0600/1600) benzonatate 100 mg cap(s) (TESSALON PERLE) 100 mg ORAL TID apixaban 5 mg tab(s) (ELIQUIS) 5 mg ORAL BID guaiFENesin-dextromethorphan 100-10 mg/5 mL 5-10 mL oral liquid (ROBITUSSIN DM) 5-10 mL ORAL q 6 H PRN guaiFENesin 600 mg ER tab(s) (MUCINEX) 600 mg ORAL q 12 H insulin glargine 50 Units injection (long acting) (LANTUS) 50 Units SUBCUTANEOUS DAILY insulin glargine 50 Units injection (long acting) (LANTUS) 50 Units SUBCUTANEOUS AT BEDTIME insulin lispro injection (rapid acting) (HumaLOG) SUBCUTANEOUS w MEALS insulin lispro injection (rapid acting) (HumaLOG) SUBCUTANEOUS AT BEDTIME insulin lispro 25 Units injection (rapid acting) (HumaLOG) 25 Units SUBCUTANEOUS TID w MEALS gabapentin 600 mg cap(s) (NEURONTIN) 600 mg ORAL BID simvastatin 40 mg tab(s) (ZOCOR) 40 mg ORAL AT BEDTIME colchicine 0.6 mg tab(s) 0.6 mg ORAL DAILY isosorbide mononitrate ER 30 mg tab(s) (IMDUR) 30 mg ORAL DAILY 0.9% NaCl 3-5 mL 3-5 mL INTRAVENOUS q 12 H 0.9% NaCl 2-10 mL 2-10 mL INTRAVENOUS q 12 H furosemide 40 mg injection (LASIX) 40 mg INTRAVENOUS q 8 H doxycycline 100 mg in D5W 250 mL (VIBRAMYCIN) 100 mg INTRAVENOUS q 12 H ipratropium-albuterol 3 mL nebulizer solution (DUONEB) 3 mL INHALATION q 4 H while awake methylPREDNISolone sod succinate(PF) 40 mg injection (Solu- MEDROL) 40 mg INTRAVENOUS q 12 H dextrose 40 % 15 g (INSTA-GLUCOSE) 15 g ORAL PRN glucagon 1 mg injection (GLUCAGEN) 1 mg INTRAMUSCULAR PRN dextrose 50% in water 25 mL syringe 12.5 g INTRAVENOUS PRN fluticasone-vilanterol 100-25 mcg/dose 1 Inhalation (BREO ELLIPTA) 1 Inhalation INHALATION DAILY cefTRIAXone 1 g in sterile water 10 mL (ROCEPHIN) 1 g INTRAVENOUS q 24 H ALLERGIES Allergen Reactions - Latex Rash, Itching Itching and welts. No wheezing or shortness of breath. - Penicillins Rash, Itching - Tetracycline GI Upset Emesis and diarrhea. - Atorvastatin Unknown - Bactrim [Sulfametho* Unknown I don't remember. - Codeine Unknown - Dilaudid [Hydromorp* Unknown - Meperidine - Pentazocine - Pioglitazone Unknown - Propoxyphene COMPLETE REVIEW OF SYSTEMS: WEIGHT: Stable EYES: Cataracts HYDRATION: Thirst and polydypsia CARDIAC: Dyspnea, Palpitations, Edema and Cough RESPIRATORY: Positive for productive cough, shortness of breath on exertion, also complaining of chest pain after a bout of cough GI: occasional nausea but no vomiting, diarrhea, constipation, GI bleeding or heartburn : no dysuria, frequency, hesitancy, hematuria, polyuria or nocturia SKIN: normal MUSCULOSKELETAL: No joint pain, stiffness, swelling, cramping or weakness NERVOUS SYSTEM: numbness of the feet ALL OTHER SYSTEMS: non-contributory Last Eye Exam: last year Last Podiatry Exam: last year Objective PHYSICAL EXAM: BP 156/74 Pulse 62 Temp 36.3 ?C (97.3 ?F) (Oral) Resp 18 Wt 99.9 kg (220 lb 3.2 oz) SpO2 96% BMI 33.48 kg/m2 Body mass index is 33.48 kg/(m2). General: Obese woman sitting comfortably on chair, Well developed and well nourished appearance. No acute distress. Skin: No rash on chest, arms or legs. Warm, dry. Head/Eyes: Sclera clear, normal conjunctiva. EOMI. Mouth/Pharynx: Teeth: Fair dentition. No lesions. Neck: No JVD. Supple. Lungs: Diminished breath sounds with scattered rhonchi and wheezing Heart: Regular rate and rhythm. Normal S1, S2. No murmurs. No rubs. Peripheral Vascular/Arteries: Carotid pulse normal without bruit. No abdominal bruits. No femoral bruits or hematoma. DP/Radial pulses normal. Abdomen: Soft abdomen, nontender, nondistended without mass. No hepatosplenomegaly. Normal bowel sounds. Musculoskeletal: No kyphoscoliosis. No joint deformities. Extremities: No clubbing or cyanosis. 2 + edema. Warm digits. Neurologic/Psychiatric: Oriented to person, place, time. Normal affect. No gross focal neurologic deficits. All other systems: non-contributory Laboratory Results: Hemoglobin (g/dL) Date Value 12/12/2017 12.7 Hematocrit (%) Date Value 12/12/2017 42.0 WBC (k/uL) Date Value 12/12/2017 13.74 Platelet Count (k/uL) Date Value 12/12/2017 212 Potassium (mmol/L) Date Value 12/12/2017 4.5 Sodium (mmol/L) Date Value 12/12/2017 138 Magnesium (mg/dL) Date Value 12/12/2017 1.9 Creatinine (mg/dL) Date Value 12/12/2017 1.97 BUN (mg/dL) Date Value 12/12/2017 68 Glucose (mg/dL) Date Value 12/12/2017 117 PT INR (no units) Date Value 10/24/2010 4.1 TSH (uU/mL) Date Value 2010 1.300 NT Pro BNP (pg/mL) Date Value 12/10/2017 4154 Lipids: Cholesterol, Total (mg/dL) Date Value 05/17/2017 145 HDL Cholesterol (mg/dL) Date Value 05/17/2017 34 LDL Cholesterol (mg/dL) Date Value 05/17/2017 84 Triglyceride (mg/dL) Date Value 05/17/2017 137 Albumin (g/dL) Date Value 12/12/2017 3.3 (L) Bilirubin, Total (mg/dL) Date Value 12/12/2017 0.3 Alkaline Phosphatase (U/L) Date Value 12/12/2017 86 AST (U/L) Date Value 12/12/2017 15 ALT (U/L) Date Value 12/12/2017 19 Protein, Total (g/dL) Date Value 12/12/2017 6.7 LV Ejection Fraction (%) Date Value 2010 45 Hemoglobin A1C (%) Date Value 10/27/2017 16.1 05/17/2017 10.0 2010 8.4 Hemoglobin A1c (%) Date Value 10/27/2017 >15 Impression/Recommendations Patient with uncontrolled Diabetes Mellitus Type 2 hyperglycemia worsened by steroid use whom we have been consulted for glycemic control. RECOMMENDATIONS: ? Change Basal Insulin: Lantus 50 units BID ? Change Prandial Insulin: Humalog 25 units AC TID ? Change Supplemental Sliding Scale: Humalog Program #3 AC #2 HS ? Accuchecks: AC/HS ? Recommend CHO Controlled Diet ? Consult CDE regarding: DM Education including DM meal plan SIGNATURE: Som Feliciano MD PATIENT NAME: Luz Baca DATE: December 12, 2017 TIME: 12:38 PM PAGER/CONTACT #: [phone] PROG Observed: 12/12/2017 Status: COMPLETED Source: [facility] 10:54 AM CLINIC OTHER CAMPUS REPOSITORY O ID: [id number] Author: Malcolm Yo Service: Pulmonary Disease Author Type: Physician Type: Consult Progress Note Filed: 12/12/2017 11:00 AM Note Text: 77 year old former smoker seen in consult follow-up for evaluation of a COPD exacerbation. Mrs. Baca is a former smoker who is receiving treatment for COPD. Her pulmonary function studies have shown mainly restriction. She has been treated with Symbicort and Tiotropium, instructed to discontinue them if they were not helpful (she believes she is still using them). Her other history is significant for CAD/CABG, hypertrophic cardiomyopathy s/p myectomy, atrial fibrillation, a PPM/defibrillator, morbid obesity, and MARLA (not tolerating CPAP). She is anticoagulated. She uses supplemental oxygen at home and at her best can ambulate short distances. ? Background: Mrs. Baca describes one month of increased dyspnea and coughing. The cough has been mildly productive. She has noticed intermittent fevers/sweats, edema, a chest discomfort. She presented to an ED and was treated with azithromycin, prednisone, and tamiflu (it is not clear if an influenza swab was obtained). She did not feel better so re-presented this time at the [place] ED a couple of days later. ? Today: Mrs. Baca is feeling better than on her presentation. Her dyspnea and coughing have both improved. She has not been up much yet. She does not have fevers or chest pain. She was flu negative. She was negative fluid balance. ? Exam: Mrs. Baca is in no distress, speaking full sentences, with an SpO2 of 94% on 2L NC. Chest has some expiratory wheezing. RRR, trace edema. ? Labs and imaging have been reviewed. WBC up to 13.7, Cr up to 2.0. ? Assessment and Plan: Mrs. Baca presents with acute on chronic hypoxic/hypercarbic respiratory failure, in part felt to be related to bronchitis or pneumonia. Her PFTs have not supported COPD over time though symptomatically an element of chronic bronchitis has been present. I agree with IV corticosteroid therapy (Solumedrol may be reduced to once daily and changed to prednisone tomorrow) and empiric antibiotics (receiving Ceftriaxone and Doxycycline). She is receiving nebulized bronchodilators and her maintenance COPD therapies. Cardiology, Nephrology, and Endocrinology are involved in her care. ? Malcolm Yo MD THERAPY NT Observed: 12/12/2017 Status: COMPLETED Source: [facility] 10:34 AM CLINIC OTHER CAMPUS REPOSITORY HNO ID: [id number] Author: Jesi (Pt) Osmany Service: Physical Therapy Author Type: Physical Therapist Type: Therapy (PT/OT/Speech/Resp) Filed: 12/12/2017 10:42 AM Note Text: Physical Therapy Evaluation SERVICE DATE: 12/12/2017 SERVICE TIME: 932 to 100 ROOM: [place] [id number] Recommended Discharge Disposition: Home PT Recommended Discharge Disposition Comments: patient is below her functioning baseline and could benefit from additional in- home services. Anticipate patient will be able to demonstrates adequate mobility for discharge home with medical improvement. IF patient does not progress as expected, may need short term SNF. Anticipated Discharge Needs: Physical Assist at Home Physical Assist at Home for: Cleaning;Laundry;Meals;Stairs;Safety;Self Care;Shopping;Transportation Recommended Discharge Equipment: No equipment needs anticipated PT Recommendations to Nursing: Ambulate with device using gait belt;OOB for Meals using gait belt Device: Wheeled Walker PT 6 Clicks Score: 18 Precautions/Activity Restrictions: Fall Risk Precaution/Activity Restriction Comments: oxygen dependent ASSESSMENT : Patient with long standing history of COPD. Admitted with SOB, EDMONDS, productive cough, wheezing, fever, weakness, and dysuria x a few days. Patient presents with generalized weakness and decreased activity tolerance due to SOB. Requires skilled PT for progressive strengthening and functional mobility progression. Patient with very supportive family and anticipate discharge home with family assist with medical improvement. Tolerance Limited By Fatigue;Other: See Comment (EDMONDS) Physical Therapy Problem List: Education Deficit;Decreased Activity Tolerance;Decreased Strength;Functional Mobility Impairment Patient /Caregiver Goals: Go Home Goals for Plan of Care: Able to perform HEP with: Modified Independent Transfer sit to/from stand with: Modified Independent Ambulate with: Supervision Distance: 50 Device: Wheeled Walker Ambulate up and down steps with: Moderate Assistance Number of steps: 2 Device: Cane;Hand Held Assist Rehab Potential: Good PLAN: Treatment Frequency (times per week): 4 Current admission Treatment Interventions: Education;Self Care / Home Management;Energy Conservation Training;Strengthening;Functional Mobility Training Plan of Care developed with: Patient TREATMENT INTERVENTIONS: Therapy Diagnosis: Reduced mobility-other;Muscle Weakness (generalized);Unsteadiness on feet;General symptoms and signs-other Interventions Provided: Evaluation;Gait Training (25761) $ Evaluation-Low (02798) Billed Units: 1 unit Gait Training (44383) Treatment Minutes: 8 1 unit Skilled Intervention(s): Instruction in sit to stand technique with proper hand placement and body positioning at edge of bed/chair, Instruction in stand to sit technique with LE's touching chair/bed and reaching back for surface, Instruction in correction of gait deviations, posture awareness and breathing cues. Total Timed Code Treatment Minutes: 8 Total Treatment Time (minutes): 33 SUBJECTIVE: Current Hospital Course: Chart reviewed; Fozia has PMH of cardiomyopathy, SVT, A-fib, CAD, CABG with myomectomy, pacer/defib, COPD--2.5 lpm dependent, HTN, DM, and sleep apnea. She was admitted with SOB, productive cough, wheezing, fever, weakness x several days. Diagnosed with exac of COPD and mild CHF. Per nursing, patient was given Lasix and was exhausted getting to/from commode and therefore a goodson was placed. Otherwise, she is stable and cleared for PT. Patient Report: Patient states she is breathing better today and agreeable to PT. Home Environment Patient Lives With: Family (lives in 2 bedroom apt with daughter. ) Assistance Available: 24 Hour (assist provided by daughter/her fiance/granddaughter) Entry To Home: Stairs;Without Rail Number Of Stairs Into Home: 2 Tub/Shower Type: tub/shower combo Laundry: daughter does per laundromat Equipment Owned: Cane;Commode-Bedside;Grab Bars-Shower;Wheeled Walker Prior Functional Level: Required Assistance;History of Falls Assistance Required With: Cleaning;Laundry;Meals;Stairs;Safety;Self Care;Shopping;Transportation;Other: See Comment Prior Functional Level Comments: dgt assists with getting her in/out of the shower, assists with bathing and dressing as patient needs. Patient homebound except for MD appointments. OBJECTIVE: CURRENT FUNCTIONAL STATUS: Current Functional Mobility Assist Level Additional Information Rolling Supervision Supine to Sit Contact Guard Assistance Sit to Supine Scooting Contact Guard Assistance Sit to Stand Contact Guard Assistance Stand to Sit Minimal Assistance (for control of descent) Bed to Chair Toilet/Commode Gait Contact Guard Assistance Gait Device: Wheeled Walker Gait Distance (feet): 15 Stairs Curb Step Car Transfer General Gait Deviations: Jane decreased;Step length decreased;Flexed trunk posture;Wide base of support Balance: Static Sitting;Dynamic Sitting;Static Standing;Dynamic Standing Static Sitting Balance: Independent Dynamic Sitting Balance: Supervision Static Standing Balance: Supervision Dynamic Standing Balance: Contact Guard Assistance Please see discipline specific clinical documentation flowsheet for complete details for this therapy evaluation/treatment. Patient in bedside chair with call bear and all personal items in reach. Patient instructed to call for assist when wanting to go back to bed. Nursing present for am medications. SIGNATURE: Jesi Ceron PT PATIENT NAME: Luz Baca DATE: December 12, 2017 TIME: 10:35 AM PAGER/CONTACT #: [phone] PROGRESS Observed: 12/12/2017 Status: COMPLETED Source: [facility] 9:52 AM CLINIC OTHER CAMPUS REPOSITORY O ID: [id number] Author: Gloria Singer Service: Hospital Medicine Author Type: Physician Type: Progress Notes Filed: 12/13/2017 3:54 AM Note Text: INPATIENT PROGRESS NOTE SERVICE DATE: 12/12/2017 SERVICE TIME: 9.00AM Subjective CHIEF COMPLAINT: Cough and SOB better, Still has CP/epigastric discomfort No fever,chills Current hospital medications: pantoprazole DR 40 mg tab(s) (PROTONIX) 40 mg ORAL BID AC (0600/1600) benzonatate 100 mg cap(s) (TESSALON PERLE) 100 mg ORAL TID apixaban 5 mg tab(s) (ELIQUIS) 5 mg ORAL BID guaiFENesin-dextromethorphan 100-10 mg/5 mL 5-10 mL oral liquid (ROBITUSSIN DM) 5-10 mL ORAL q 6 H PRN guaiFENesin 600 mg ER tab(s) (MUCINEX) 600 mg ORAL q 12 H insulin glargine 50 Units injection (long acting) (LANTUS) 50 Units SUBCUTANEOUS DAILY insulin glargine 50 Units injection (long acting) (LANTUS) 50 Units SUBCUTANEOUS AT BEDTIME insulin lispro injection (rapid acting) (HumaLOG) SUBCUTANEOUS w MEALS insulin lispro injection (rapid acting) (HumaLOG) SUBCUTANEOUS AT BEDTIME insulin lispro 25 Units injection (rapid acting) (HumaLOG) 25 Units SUBCUTANEOUS TID w MEALS gabapentin 600 mg cap(s) (NEURONTIN) 600 mg ORAL BID simvastatin 40 mg tab(s) (ZOCOR) 40 mg ORAL AT BEDTIME colchicine 0.6 mg tab(s) 0.6 mg ORAL DAILY isosorbide mononitrate ER 30 mg tab(s) (IMDUR) 30 mg ORAL DAILY 0.9% NaCl 3-5 mL 3-5 mL INTRAVENOUS q 12 H 0.9% NaCl 2-10 mL 2-10 mL INTRAVENOUS q 12 H furosemide 40 mg injection (LASIX) 40 mg INTRAVENOUS q 8 H doxycycline 100 mg in D5W 250 mL (VIBRAMYCIN) 100 mg INTRAVENOUS q 12 H ipratropium-albuterol 3 mL nebulizer solution (DUONEB) 3 mL INHALATION q 4 H while awake methylPREDNISolone sod succinate(PF) 40 mg injection (Solu- MEDROL) 40 mg INTRAVENOUS q 12 H dextrose 40 % 15 g (INSTA-GLUCOSE) 15 g ORAL PRN glucagon 1 mg injection (GLUCAGEN) 1 mg INTRAMUSCULAR PRN dextrose 50% in water 25 mL syringe 12.5 g INTRAVENOUS PRN fluticasone-vilanterol 100-25 mcg/dose 1 Inhalation (BREO ELLIPTA) 1 Inhalation INHALATION DAILY cefTRIAXone 1 g in sterile water 10 mL (ROCEPHIN) 1 g INTRAVENOUS q 24 H Objective PHYSICAL EXAM: BP 156/74 Pulse 58 Temp (Src) 97.3 (Oral) Resp 18 Wt 220 lb 3.2 oz (99.9kg) SpO2 94% Physical Exam Performed GENERAL: Alert, no distress, cooperative, Morbidly Obese LUNGS:Harsh breath sounds With rhonchi and wheezes CARDIAC: Normal S1 and S2; no rubs, murmurs, or gallops ABDOMEN: Abdomen soft, epigastric discomfort, BS normal, EXTREMITIES: improving edema,stasis dermatitis both legs NEURO:Awake,alert,oriented x3 DATA: Diagnostic tests reviewed for today's visit: Most recent labs and imaging results. Assessment/Plan Active Problems: ??Acute exacerbation of CHF (congestive heart failure) (HCC) POA: Yes ?Assessment AND?Plan: Patient with symptoms suggestive of CHF exacerbation However CXR findings of Small left pleural effusion with left basilar atelectasis and/or consolidation. Stable cardiomegaly. CT chest Linear densities RIGHT middle lobe and LEFT lung base consistent with atelectasis and/or fibrosis. ?Nonspecific groundglass airspace disease posterior RIGHT lower lobe base. Left pleural thickening with calcific a cyst. ?This may be due to remote Hemothorax.Cardiomegaly ?EF 50% on 08/11/17 Although BNP Was elevated @ 4154.It was 1513 on 11/12 with improving renal function, It does not seem That patient is in CHF exacerbation. However,she reports feeling better today so will continue diuresis for now.Plan to wean down on lasix Appreciate input from Cardiology ?Chest pain/ ?Elevated troponin POA: Unknown ?Assessment AND?Plan: Patient reports chronic chest pain ?Which is worse over weeks. EKG shows Paced ventricular rhythm,CK 58%, :MB 6 Troponin trending down . She had a stress test on 08/11/17 which shows no acute ischemia.EF 50% with apical hypokinesis /dyskinesis Await cardiology input . ? ?? Diabetes mellitus due to underlying condition, uncontrolled, with stage 3 chronic kidney disease, with long-term current use of insulin (HCC) POA: Yes ?Assessment AND?Plan: HBAIC 16.1 on 10/27 Fair control by endo. Continue current mgt as per endo recc ? ? CKD stage 3 Cr 1.52 improved from 2.05 on 10/28/17 Cr worse from 1.52 to 1.97 with diuresis. Since patient notes improvement with current rx, continue diuresis with current dose For now and gradually reduce dose Renally dose all meds Avoid nephrotoxins Daily BMP ?COPD with acute exacerbation (HCC) POA: Unknown ?Assessment AND?Plan: Patient rxed with azt,steroid and tamiflu w/out improvement . CXR Shows Small left pleural effusion with left basilar atelectasis and/or consolidation. Stable cardiomegaly CT chest: Linear densities RIGHT middle lobe and LEFT lung base consistent with atelectasis and/or fibrosis. ?Nonspecific groundglass airspace disease posterior RIGHT lower lobe base. Left pleural thickening with calcific a cyst. ?This may be due to remote Hemothorax.Cardiomegaly Legionella,strept pneumonia ,procal Negative ,sputum culture could not be done , mycoplasma pending . Patient notes improving symptoms on current rx Regimen Continue ceftriaxone and doxy, breathing rx ,steroids Appreciate input from pulmonology ?Acute on chronic respiratory failure with hypoxia (HCC) POA: Unknown ?Assessment AND?Plan: Patient uses 2.5liters at home now on 3l. ABG shows normal PH, respiratory acidosis with metabolic compensation Continue oxyegn supplementation to keep SPO2 92>above See rx above ?? Gout :patient complains of foot pain due to gout. No improvement since starting steroids and she is also on colchicine. However feels better since she got a higher dose of neurontin. On closer questioning ,she states her pain extends from feet to upper part of the leg . Pain is likely due to diabetic neuropathy not gout. Continue neurontin rx for neuropathy. Continue colchicine as she may have hx of gout as her uric acid level is elevated a @ 12.6 ? Dysuria: UA not suggestive of UTI.shows glycosuria and trace leucocyte esterase.Urine culture negative. If symptoms persist, wlil benefit from a rx with antifungal rx GERD:Suboptimal control with taking 40mg daily.Increase to 40mg bid ?? PAF/HOCM S/P septal myomectomy in 2003/S/P pacemaker placement,CAD/CABG /hypertension Resume home meds ?? Weakness/debility:PT reccs home PT ? Dr Wilder will assume care tomorrow 12/13/16 SIGNATURE: Gloria Singer MD PATIENT NAME: Luz Baca DATE: December 12, 2017 TIME: 9:53 AM PAGER: [phone] NURSING PROG Observed: 12/12/2017 Status: COMPLETED Source: [place] 9:48 AM CLINIC OTHER CAMPUS REPOSITORY HNO ID: [id number] Author: Leighann (Rn) ALLYSON Malhotra Service: (none) Author Type: Registered Nurse Type: Nursing Progress Note Filed: 12/12/2017 6:55 PM Note Text: Nursing Progress Note Patient Name: Luz Baca Patient Location: [id number] Daily Note: 0810- Pt resting in bed. AANDOx3. Apical regular. Denies chest pain or palpitations. Lungs with expiratory wheezes, improved since yesterday. Resp easy on 2.5L NC. Productive cough for clear sputum noted. Pt states not much improvement on SOB. Abd soft. BSx4. Skin warm, dry, color pink. PPP. No edema. BLE with pinkish purple discoloration. Goodson draining clear, yellow urine. Heplock to right forearm flushed without difficulty. Denies needs. Call light within reach. 0945- Dr. Lucrecia olmos. 1000- Jesi PT working with pt. 1010- Humalog, Lantus, SoluMedrol IV, Rocephin IV and PO meds given without difficulty. Vibramycin IVPB hung via pump. Pt up in chair. Denies needs. Call light within reach. 1130- Dr. Jodie olmos. 1220- Spoke with Dr. Feliciano for blood sugar 389, no new orders received and Humalog 40 units SQ given. Pt tolerating chair well. Daughter at bedside. Denies needs. Call light within reach. 1425- Observed pt back in bed. Lasix 40 mg IV and PO med given. Denies needs. Receiving aerosol tx. Call light within reach. 1730- Humalog 25 units SQ given. Denies needs. Call light within reach. 1845- No changes noted in assessment. This note was completed by: Leighann Malhotra RN CBC Collected: 12/12/2017 Status: F Source: [place] 5:02 AM CLINIC OTHER CAMPUS REPOSITORY TYPE CODE TESTS RESULT OUT OF REFERENCE UNITS RANGE LAB WBC 3.70-11.00 k/uL WBC High 13.74 LAB RBC 3.90-5.20 m/uL RBC 4.54 LAB HGB 11.5-15.5 g/dL Hemoglobin 12.7 LAB HCT 36.0-46.0 % Hematocrit 42.0 LAB MCV 80.0-100.0 fL MCV 92.5 LAB MCH 26.0-34.0 pG MCH 28.0 LAB MCHC 30.5-36.0 g/dL Low MCHC 30.2 LAB RDWCV 11.5-15.0 % RDW-CV High 16.6 LAB PLTCT 150-400 k/uL Platelet Count 212 LAB MPV 9.0-12.7 fL MPV 9.8 Performed By: #### CBC, CMP, MG1 #### [facility] [address] [facility] [phone] #### PROCAL #### [facility] [address] [place] [address] COMP METABOLIC PANEL Collected: 12/12/2017 Status: F Source: [place] 5:02 AM CLINIC OTHER CAMPUS REPOSITORY TYPE CODE TESTS RESULT OUT OF REFERENCE UNITS RANGE LAB TP 6.3-8.0 g/dL Protein, Total 6.7 LAB ALB 3.9-4.9 g/dL Low Albumin 3.3 LAB CA 8.5-10.2 mg/dL Calcium, Total 8.7 LAB TBIL 0.2-1.3 mg/dL Bilirubin, Total 0.3 LAB ALKP 32-117 U/L Alkaline Phosphatase 86 LAB AST 13-35 U/L AST 15 LAB GLU 74-99 mg/dL Glucose High 117 Result Comment: The [place] [employer] (ADA) provides guidance for cutoff values for fasting glucose and random glucose. The ADA defines fasting as no caloric intake for at least 8 hours. Fas ting plasma glucose results between 100 to 125 mg/dL indicate increased risk for diabetes (prediabetes). Fasting plasma glucose results greater than or equal to 126 mg/dL meet the criteria for diagnosis of diabetes. In the absence of unequivocal hyperglycemia, results should be confirmed by repeat testing. In a patient with classic symptoms of hyperglycemia or hyperglycemic crisis, random plasma glucose results greater than or equal to 200 mg/dL meet the criteria for diagnosis of diabetes. Reference: Standards of Medical Care in Diabetes 2016, [place] [employer]. Diabetes Care. 2016.39(Suppl 1). LAB BUN 7-21 mg/dL BUN High 68 LAB CRET 0.58-0.96 mg/dL Creatinine High 1.97 LAB NA 136-144 mmol/L Sodium 138 LAB K 3.7-5.1 mmol/L Potassium 4.5 LAB CL 97-105 mmol/L Low Chloride 93 LAB CO2 22-30 mmol/L CO2 High 37 LAB AGAP 9-18 mmol/L Low Anion Gap 8 LAB ALT 7-38 U/L ALT 19 LAB GFRAA eGFR- Amer. 30 LAB GFRNAA . eGFR-All Other Races 25 Result Comment: eGFR (Estimated GFR) Units of measure: mL/min/1.73 meters squared eGFR is derived from the reexpressed MDRD Study equation using the following parameters: serum creatinine, age, gender and race. The creatinine assay has been calibrated to be traceable to IDMS. An eGFR <60 mL/min/1.73m2 for >3 months is consistent with chronic kidney disease. Refer to KDOQI guidelines for clinical interpretation. In patients with unstable renal function, e.g. those with acute kidney injury, the eGFR may not accurately reflect actual GFR. Performed By: #### CBC, CMP, MG1 #### [address] #### PROCAL #### [place] [phone] MAGNESIUM Collected: 12/12/2017 Status: F Source: [place] 5:02 AM [facility] OTHER [place] REPOSITORY TYPE CODE TESTS RESULT OUT OF REFERENCE UNITS RANGE LAB MG 1.7-2.3 mg/dL Magnesium 1.9 Performed By: #### CBC, CMP, MG1 #### [place] [id number] #### PROCAL #### [place] [address] PROCALCITONIN Collected: 12/12/2017 Status: F Source: [place] 5:02 AM [facility] REPOSITORY TYPE CODE TESTS RESULT OUT OF REFERENCE UNITS RANGE LAB PROCLT <0.09 ng/mL Procalcitonin 0.06 Result Comment: For a guided interpretation of test results, please visit the Change in Procalcitonin Calculator, [email or web address]. Performed By: #### CBC, CMP, MG1 #### [place] [id number] #### PROCAL #### [place] [address] PLAN OF CARE Observed: 12/11/2017 Status: COMPLETED Source: [place] 7:18 PM CLINIC OTHER [place] REPOSITORY HNO ID: [id number] Author: Som Feliciano Service: Endocrinology Author Type: Physician Type: Plan of Care Filed: 12/11/2017 7:24 PM Note Text: Component Latest Ref Rng AND Units 12/10/2017 12/10/2017 12/11/2017 12/11/2017 12/11/2017 10:37 PM 11:19 PM 9:04 AM 12:40 PM 5:41 PM Glucose, Point of Care 65 - 100 mg/dL 466 (A) 406 (A) 219 (A) 397 (A) 302 (A) Impression: uncontrolled DM-2 on insulin, worsened by steroid use Plan: Go up on Lantus 50 unit BID, Go up on Humalog 25 units sq TID QA, Continue sliding scale Monitor blood sugar QAC AND HS. Som Feliciano MD December 11, 2017 Observed: 12/11/2017 Status: F Source: [place] SCORED SPECIMEN 6:08 PM [facility] REPOSITORY Smear Result - Respiratory culture rejected due to the presence of oral contamination. Specimen contains too many squamous epithelial cells. Clinic Desk/Hospital Nursing Station notified. Spoke to Aleisha FROM [facility] 12/11 @0545 BY TREVER Performed By: #### SCORE #### [facility] [address] [place] [address] CONSULT Observed: 12/11/2017 Status: COMPLETED Source: [place] 3:59 PM [facility] REPOSITORY HNO ID: [id number] Author: Clay Garcia Service: Clinical Cardiology Author Type: Physician Type: Consults Filed: 12/11/2017 4:24 PM Note Text: [facility] CONSULT HISTORY AND PHYSICAL Luz Baca [id number] CONSULTING SERVICE: Clay Garcia, DO, FACC, FCCP, FACOI. PRIMARY SERVICE: Hospitalist [facility] Consult Staff Note: Consultation requested by Dr. Singer for an opinion regarding SOB. My final recommendations will be communicated back to the requesting physician by way of shared Medical Record. ASSESSMENT / RECOMMENDATIONS / PLAN: Hospital Problem List reviewed. 1. Acute on chronic hypoxemic/hypercapnic respiratory failure Bronchitis/pneumonia/COPD CT of chest suggest atelectasis and/or fibrosis. Nonspecific groundglass interspace disease posterior right lower lobe base. Left pleural thickening. No pleural effusion or sign of CHF 2. HOCM Status post septal myomectomy at the time of CABG 2003 3. CAD Status post CABG ?2, 07/18/04, VU to LAD, SVG to PDA PCI ?6 RCA, 2013 PCI ?3 2015 Status post myocardial perfusion imaging stress test 08/11/17 with possible prior apical infarct and no ischemia, EF 50% 4. Chronic atrial fibrillation Status post cardioversion 2009 5. Ischemic cardiomyopathy ICD, single ventricular lead with predominant pacing 2014 with revision November 2016 (beta lenny intolerances) 6. Obstructive sleep apnea Did not tolerate CPAP Conclusion recommendation: She does appear to be stable from a cardiac standpoint. She does not examine to be in heart failure at this time however BNP is elevated over 4000 which can be seen with pulmonary disease is well. I agree with the IV diuretics however along with pulmonary toilet. We will follow her hospital course and assist were needed from a cardiac standpoint. 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 Cardona upon discharge. Staff Signature: Clay Garcia, , FACC, FCCP, FACOI. Date of Service: 12/11/17 Time of Service: 1300 SUBJECTIVE: CHIEF COMPLAINT/HPI: This is a 77 year old female with a history of coronary artery disease status post multiple interventions including CABG, hypertrophic obstructive cardiomyopathy treated with septal myomectomy in 2003, chronic atrial fibrillation, ischemic cardiomyopathy status post ICD, obstructive sleep apnea without treatment, hypertension, and hyperlipidemia who presents with increased dyspnea and coughing with yellow sputum productive sputum and occasional fevers and chills. She has chest discomfort after extended coughing segments. She has COPD on home oxygen of 2 half liters. She is followed by Dr. Cardona in [place] as her primary supervisor porcelain department. She did have CABG ?2 with a VU to LAD and SVG to PDA as well as septal myomectomy for HOCM in [facility] on 07/18/04. status post PCI ?6 to RCA in 2013 and PCI ?3 in 2014. She had ICD was single ventricular lead in 2014 and revision in November 2016. She apparently has had intolerance to CPAP, beta blockers, damion inhibitors and ARB. Her most recent ischemic assessment was 08/11/17 with MPI suggesting old apical infarct with no ischemia and EF of 50%. This was done in [facility]. HISTORY History obtained from: Patient, Family and Old records PAST MEDICAL HISTORY: Recorded in EMR and on admission HANDP; reviewed and confirmed PAST SURGICAL HISTORY: Recorded in EMR and on admission HANDP; reviewed and confirmed FAMILY HISTORY: Recorded in EMR and on admission HANDP; reviewed and confirmed SOCIAL HISTORY: Recorded in EMR and on admission HANDP; reviewed and confirmed MEDICATIONS: Prior to Admission Medications reviewed in EMR Current Hospital Medications reviewed in EMR ALLERGIES: ALLERGIES Allergen Reactions - Latex Rash, Itching Itching and welts. No wheezing or shortness of breath. - Penicillins Rash, Itching - Tetracycline GI Upset Emesis and diarrhea. - Atorvastatin Unknown - Bactrim [Sulfametho* Unknown I don't remember. - Codeine Unknown - Dilaudid [Hydromorp* Unknown - Meperidine - Pentazocine - Pioglitazone Unknown - Propoxyphene COMPLETE REVIEW OF SYSTEMS: PAIN ASSESSMENT: Negative for pain, history of chronic pain, or current treatment for a chronic pain condition. GENERAL: No weight loss, malaise or fevers HEENT: Negative for frequent or significant headaches, No changes in hearing or vision, no nose bleeds or other nasal problems NECK: Negative for lumps, goiter, pain and significant neck swelling RESPIRATORY: See history of present illness see history of present illness CARDIOVASCULAR: See HPI GI: Negative for abdominal discomfort, blood in stools or black stools or change in bowel habits : No history of dysuria, frequency or incontinence CARE ASSOCIATE: Negative for abnormal vaginal bleeding, abnormal vaginal discharge MUSCULOSKELETAL: Negative for joint pain or swelling, back pain or muscle pain. SKIN: Negative for lesions, rash, and itching. PSYCH: Negative for sleep disturbance, mood disorder and recent psychosocial stressors. HEMATOLOGY/LYMPHOLOGY Negative for prolonged bleeding, bruising easily or swollen nodes. ENDOCRINE: Negative for cold or heat intolerance, polyuria, polydipsia and goiter. NEURO: No history of headaches, syncope, paralysis, seizures or tremors See HPI See HPI: Remaining ROS reviewed and negative. PHYSICAL EXAM: BP 132/67 Pulse 64 Temp 36.6 ?C (97.9 ?F) (Oral) Resp 20 Wt 99.6 kg (219 lb 9.6 oz) SpO2 93% BMI 33.39 kg/m2 General: Well developed and well nourished appearance. No acute distress. Skin: No rash on chest, arms or legs. Warm, dry. Head/Eyes: Sclera clear, normal conjunctiva. EOMI. Mouth/Pharynx: Teeth: Fair dentition. No lesions. Neck: No JVD. Supple. Lungs: Diminished breath sounds with scattered rhonchi and wheezing Breasts: Deferred Heart: Normal PMI. No lifts or thrills. Regular rate and rhythm. Normal S1, S2. No S3. No S4. No murmurs. No rubs. Peripheral Vascular/Arteries: Carotid pulse normal without bruit. No abdominal bruits. No femoral bruits or hematoma. DP/Radial pulses normal. Abdomen: Soft abdomen, nontender, nondistended without mass. No hepatosplenomegaly. Normal bowel sounds. Musculoskeletal: No kyphoscoliosis. No joint deformities. Extremities: No clubbing or cyanosis. No edema. Warm digits. Neurologic/Psychiatric: Oriented to person, place, time. Normal affect. No gross focal neurologic deficits. DATA: Laboratory: Recent Labs 12/11/17 0535 12/10/17 1220 WBC 11.17* 10.08 HB 13.6 13.3 HCT 43.0 42.4 PLT 210 175 Recent Labs 12/11/17 0535 12/10/17 1220 NA 141 141 K 4.7 4.8 BUN 58* 58* CREAT 1.51* 1.52* GLUC 197* 383* MG 2.0 -- Recent Labs 12/10/17 2332 12/10/17 1856 12/10/17 1220 CK -- 86 58 MB -- 6.4* 6.0* TROPT 0.030* 0.036* 0.038* EKG: most recent image reviewed TELE: most recent recordings reviewed CXR: most recent image reviewed Echocardiogram: most recent report reviewed Cardiac Catheterization: most recent report reviewed Radiology: most recent report reviewed SIGNATURE: Clay Garcia DO PAGER: [phone] DATE of SERVICE: 12/11/2017 TIME of SERVICE: 1400 PT ED Observed: 12/11/2017 Status: COMPLETED Source: [place] 2:25 PM CLINIC OTHER CAMPUS REPOSITORY O ID: [id number] Author: Akua Muller (Email Administrator) Service: Pharmacy Author Type: Pharmacist Type: Patient Education Filed: 12/11/2017 2:28 PM Note Text: Heart Failure Education Note Patient Name:Josephine Baca Service Date: 12/11/2017 Service Time: 2:25 PM Heart Failure Education Provided: Patient was provided written and verbal instructions of heart failure management, activity as tolerated, signs and symptoms of heart failure/worsening heart failure, and to contact their physician if exhibits these symptoms. Instructed patient to contact his or her HF physician if his or her weight increases or decreases more than or equal to 4 lbs from dry weight. Medication Education Provided: 1. Reason for taking medications and treatment goals. 2. Benefits of medication therapy. 3. How medications work. 4. When to take medications and what to do is a dose is missed. 5. Potential duration of therapy. 6. Importance of regularly filling prescriptions and taking medications. 7. Proper storage of medications. Patient was given opportunity to ask questions and receive answers. Current Inpatient Medications: Current hospital medications: apixaban 5 mg tab(s) (ELIQUIS) 5 mg ORAL BID guaiFENesin-dextromethorphan 100-10 mg/5 mL 5-10 mL oral liquid (ROBITUSSIN DM) 5-10 mL ORAL q 6 H PRN guaiFENesin 600 mg ER tab(s) (MUCINEX) 600 mg ORAL q 12 H insulin glargine 20 Units injection (long acting) (LANTUS) 20 Units SUBCUTANEOUS ONCE [START ON 12/12/2017] insulin glargine 50 Units injection (long acting) (LANTUS) 50 Units SUBCUTANEOUS DAILY insulin glargine 50 Units injection (long acting) (LANTUS) 50 Units SUBCUTANEOUS AT BEDTIME insulin lispro 20 Units injection (rapid acting) (HumaLOG) 20 Units SUBCUTANEOUS TID w MEALS insulin lispro injection (rapid acting) (HumaLOG) SUBCUTANEOUS w MEALS insulin lispro injection (rapid acting) (HumaLOG) SUBCUTANEOUS AT BEDTIME gabapentin 600 mg cap(s) (NEURONTIN) 600 mg ORAL BID simvastatin 40 mg tab(s) (ZOCOR) 40 mg ORAL AT BEDTIME colchicine 0.6 mg tab(s) 0.6 mg ORAL DAILY pantoprazole DR 40 mg tab(s) (PROTONIX) 40 mg ORAL DAILY isosorbide mononitrate ER 30 mg tab(s) (IMDUR) 30 mg ORAL DAILY 0.9% NaCl 3-5 mL 3-5 mL INTRAVENOUS q 12 H 0.9% NaCl 2-10 mL 2-10 mL INTRAVENOUS q 12 H furosemide 40 mg injection (LASIX) 40 mg INTRAVENOUS q 8 H doxycycline 100 mg in D5W 250 mL (VIBRAMYCIN) 100 mg INTRAVENOUS q 12 H ipratropium-albuterol 3 mL nebulizer solution (DUONEB) 3 mL INHALATION q 4 H while awake methylPREDNISolone sod succinate(PF) 40 mg injection (Solu- MEDROL) 40 mg INTRAVENOUS q 12 H dextrose 40 % 15 g (INSTA-GLUCOSE) 15 g ORAL PRN glucagon 1 mg injection (GLUCAGEN) 1 mg INTRAMUSCULAR PRN dextrose 50% in water 25 mL syringe 12.5 g INTRAVENOUS PRN fluticasone-vilanterol 100-25 mcg/dose 1 Inhalation (BREO ELLIPTA) 1 Inhalation INHALATION DAILY cefTRIAXone 1 g in sterile water 10 mL (ROCEPHIN) 1 g INTRAVENOUS q 24 H READINESS TO LEARN COGNITIVE ABILITY: Alert and oriented MOTIVATION TO LEARN: Eager FAMILY SUPPORT: High - Very involved in pt care INSTRUCTION PROVIDED TO: Patient and Daughter PATIENT LEARNS BEST BY: Unable to Assess FACTORS AFFECTING LEARNING: None PHYSICAL LIMITATIONS AFFECTING LEARNING: None LEARNING RESPONSE DIAGNOSIS: Heart Failure PATIENT/FAMILY RESPONSE: Verbalizes understanding of: The signs and symptoms of a worsening condition that warrant a call to the physician. The correct actions to take to manage symptoms associated with his/her disease/illness. The physical restrictions and recommendations after discharge from the hospital. The side effects associated with the medication that warrant a call to the physician. Post discharge follow up instruction Diet / weight monitoring METHOD OF INSTRUCTION: Individual instruction Written instruction - handouts Verbal instruction FOLLOW-UP PLAN: Complete - No need for follow-up INSTRUCTIONAL AIDS USED: Your Guide to Managing Heart Failure SUPPLEMENTAL MATERIAL PROVIDED: HF zones and [facility] SIGNATURE: AKUA MULLER, CONTACT LENS BLOCKER RAPID PCR ASSAY FLU Collected: 12/11/2017 Status: F Source: [place] 12:40 PM [facility] OTHER [place] REPOSITORY TYPE CODE TESTS RESULT OUT OF REFERENCE UNITS RANGE LAB [facility] Nasopharyngeal Specimen Swab Source LAB PCRFLA Negative for Influenza A Influenza A by RT PCR PCR LAB PCRFLB Negative for Influenza B Influenza B by RT PCR PCR Performed By: #### FLUPCR #### [facility] [address] [facility] [phone] CONSULT Observed: 12/11/2017 Status: COMPLETED Source: [place] 12:02 PM [facility] OTHER [place] REPOSITORY HNO ID: [id number] Author: Malcolm Yo Service: Pulmonary Disease Author Type: Physician Type: Consults Filed: 12/11/2017 12:18 PM Note Text: 77 year old former smoker seen in consult for evaluation of a COPD exacerbation. Mrs. Baca describes one month of increased dyspnea and coughing. The cough has been mildly productive. She has noticed intermittent fevers/sweats, edema, a chest discomfort. She presented to an ED and was treated with azithromycin, prednisone, and tamiflu (it is not clear if an influenza swab was obtained). She did not feel better so re- presented this time at the [place] ED a couple of days later. Mrs. Baca is a former smoker who is receiving treatment for COPD. Her pulmonary function studies have shown mainly restriction. She has been treated with Symbicort and Tiotropium, instructed to discontinue them if they were not helpful (she believes she is still using them). Her other history is significant for CAD/CABG, hypertrophic cardiomyopathy s/p myectomy, atrial fibrillation, a PPM/defibrillator, morbid obesity, and MARLA (not tolerating CPAP). She is anticoagulated. She uses supplemental oxygen at home and at her best can ambulate short distances. Mrs. Baca is in mild distress, speaking full sentences, with an SpO2 of 94% on 2L NC. Chest has coarse breath sound with expiratory wheezing. RRR, trace edema. Labs and imaging have been reviewed. CT chest with mild ground glass change a bit more prominent in the right base. There is calcification of the left pleural cavity. BNP 4154, ABG 7.36/53/89, WBC 11.2, HCO3 35, Cr 1.5, [place] 0.03. Prior PFTs showed severe restriction with a moderately reduced diffusing capacity that corrects for volume. Assessment and Plan: Mrs. Baca presents with acute on chronic hypoxic/hypercarbic respiratory failure, in part felt to be related to bronchitis or pneumonia. Her PFTs have not supported COPD over time though symptomatically an element of chronic bronchitis has been present. I agree with IV corticosteroid therapy (Solumedrol may be reduced to once daily tomorrow) and empiric antibiotics (receiving Ceftriaxone and Doxycycline). It is not clear if influenza has been excluded. I will send a swab. She is receiving nebulized bronchodilators and her maintenance COPD therapies. Cardiology, Nephrology, and Endocrinology have also been consulted. Malcolm Yo MD PROGRESS Observed: 12/11/2017 Status: COMPLETED Source: [place] 10:14 AM CLINIC OTHER CAMPUS REPOSITORY O ID: [id number] Author: Gloria Singer Service: Hospital Medicine Author Type: Physician Type: Progress Notes Filed: 12/12/2017 1:21 AM Note Text: INPATIENT PROGRESS NOTE SERVICE DATE: 12/11/2017 SERVICE TIME: 10.00AM Subjective CHIEF COMPLAINT: Patient reports no improvement since yesterday Still has chest pain,SOB,cough No fever nor chills Current hospital medications: apixaban 5 mg tab(s) (ELIQUIS) 5 mg ORAL BID guaiFENesin-dextromethorphan 100-10 mg/5 mL 5-10 mL oral liquid (ROBITUSSIN DM) 5-10 mL ORAL q 6 H PRN guaiFENesin 600 mg ER tab(s) (MUCINEX) 600 mg ORAL q 12 H insulin glargine 48 Units injection (long acting) (LANTUS) 48 Units SUBCUTANEOUS AT BEDTIME insulin glargine 32 Units injection (long acting) (LANTUS) 32 Units SUBCUTANEOUS DAILY gabapentin 600 mg cap(s) (NEURONTIN) 600 mg ORAL BID simvastatin 40 mg tab(s) (ZOCOR) 40 mg ORAL AT BEDTIME colchicine 0.6 mg tab(s) 0.6 mg ORAL DAILY pantoprazole DR 40 mg tab(s) (PROTONIX) 40 mg ORAL DAILY isosorbide mononitrate ER 30 mg tab(s) (IMDUR) 30 mg ORAL DAILY insulin lispro 15 Units injection (rapid acting) (HumaLOG) 15 Units SUBCUTANEOUS TID w MEALS 0.9% NaCl 3-5 mL 3-5 mL INTRAVENOUS q 12 H 0.9% NaCl 2-10 mL 2-10 mL INTRAVENOUS q 12 H furosemide 40 mg injection (LASIX) 40 mg INTRAVENOUS q 8 H doxycycline 100 mg in D5W 250 mL (VIBRAMYCIN) 100 mg INTRAVENOUS q 12 H ipratropium-albuterol 3 mL nebulizer solution (DUONEB) 3 mL INHALATION q 4 H while awake methylPREDNISolone sod succinate(PF) 40 mg injection (Solu- MEDROL) 40 mg INTRAVENOUS q 12 H dextrose 40 % 15 g (INSTA-GLUCOSE) 15 g ORAL PRN glucagon 1 mg injection (GLUCAGEN) 1 mg INTRAMUSCULAR PRN dextrose 50% in water 25 mL syringe 12.5 g INTRAVENOUS PRN fluticasone-vilanterol 100-25 mcg/dose 1 Inhalation (BREO ELLIPTA) 1 Inhalation INHALATION DAILY cefTRIAXone 1 g in sterile water 10 mL (ROCEPHIN) 1 g INTRAVENOUS q 24 H insulin lispro injection (rapid acting) (HumaLOG) SUBCUTANEOUS w MEALS insulin lispro injection (rapid acting) (HumaLOG) SUBCUTANEOUS AT BEDTIME Objective PHYSICAL EXAM: BP 134/53 Pulse 60 Temp (Src) 97.5 (Oral) Resp 20 Wt 219 lb 9.6 oz (99.6kg) SpO2 94% Physical Exam Performed GENERAL: Alert, in resp distress- not making full sentences w/out pausing to breathe , cooperative LUNGS:Harsh breath sounds b/l , rhonchi with few wheezes CARDIAC: Normal S1 and S2; no rubs, murmurs, or gallops ABDOMEN: Abdomen soft, non-tender, BS normal, No masses or organomegaly EXTREMITIES: 2+leg edema ,stasis dermatitis - extensor surface of both legs , erythema and tenderness of both feet. NEURO: Awake,alert ,oriented x3 DATA: Diagnostic tests reviewed for today's visit: Most recent labs and imaging results. Assessment/Plan Active Problems: Acute exacerbation of CHF (congestive heart failure) (HCC) POA: Yes Assessment AND Plan: Patient with symptoms suggestive of CHF exacerbation and . However CXR findings of Small left pleural effusion with left basilar atelectasis and/or consolidation. Stable cardiomegaly. CT chest Linear densities RIGHT middle lobe and LEFT lung base consistent with atelectasis and/or fibrosis. ?Nonspecific groundglass airspace disease posterior RIGHT lower lobe base. Left pleural thickening with calcific a cyst. ?This may be due to remote Hemothorax.Cardiomegaly EF 50% on 08/11/17 Although BNP Was elevated @ 4154.It was 1513 on 11/12 with improving renal function, It does not seem That patient is in CHF exacerbation. However she is a high risk patient with elevated trops/chest pain. Will continue diuresis for now.Plan to wean down on lasix Await cardiology input. ? ? ? Chest pain/ Elevated troponin POA: Unknown Assessment AND Plan: Patient reports chronic chest pain Which is worse over weeks. EKG shows Paced ventricular rhythm,CK 58%, :MB 6 Troponin trending down . She had a stress test on 08/11/17 which shows no acute ischemia.EF 50% with apical hypokinesis /dyskinesis Await cardiology input . ? Diabetes mellitus due to underlying condition, uncontrolled, with stage 3 chronic kidney disease, with long-term current use of insulin (HCC) POA: Yes Assessment AND Plan: HBAIC 16.1 on 10/27 Resume home Insulin dose And added SSI with uncontrolled blood sugar readings due to steroids requiring extra doses of insulin overnight. Continue Current dose Endocrinology consulted. Await endocrinology input. CKD stage 3 Cr 1.52 improved from 2.05 on 10/28/17 Stable nos despite diuresis Renally dose meds Avoid nephrotoxins Daily BMP ? ? COPD with acute exacerbation (HCC) POA: Unknown Assessment AND Plan: Patient rxed with azt,steroid and tamiflu w/out improvement . CXR Shows Small left pleural effusion with left basilar atelectasis and/or consolidation. Stable cardiomegaly CT chest: Linear densities RIGHT middle lobe and LEFT lung base consistent with atelectasis and/or fibrosis. ?Nonspecific groundglass airspace disease posterior RIGHT lower lobe base. Left pleural thickening with calcific a cyst. ?This may be due to remote Hemothorax.Cardiomegaly Legionella,strept pneumonia Negative ,Await results of procal ,sputum culture, mycoplasma, Continue ceftriaxone and doxy, breathing rx ,steroids Await input from pulmonology ? ? Acute on chronic respiratory failure with hypoxia (HCC) POA: Unknown Assessment AND Plan: Patient uses 2.5liters at home now on 3l. ABG shows normal PH, respiratory acidosis with metabolic compensation Continue oxyegn supplementation to keep SPO2 92>above See rx above ? Gout :patient complains of foot pain due to gout. No improvement since starting steroids and she is also on colchicine. However feels better since she got a higher dose of neurontin. On closer questioning ,she states her pain extends from feet to upper part of the leg . Pain is likely due to diabetic neuropathy not gout. Continue neurontin rx for neuropathy. Continue colchicine as she may have hx of gout as her uric acid level is elevated a @ 12.6 Dysuria: UA not suggestive of UTI.shows glycosuria and trace leucocyte esterase.Urine culture Pending. Reassess am ? PAF/HOCM S/P septal myomectomy in 2003/S/P pacemaker placement,CAD/CABG /hypertension Resume home meds ? Weakness/debility:PT/OT ? SIGNATURE: Gloria Singer MD PATIENT NAME: Luz Baca DATE: December 11, 2017 TIME: 10:14 AM PAGER: [id number] NURSING PROG Observed: 12/11/2017 Status: COMPLETED Source: [place] 10:01 AM CLINIC OTHER CAMPUS REPOSITORY HNO ID: [id number] Author: Leighann (Rn) ALLYSON Malhotra Service: (none) Author Type: Registered Nurse Type: Nursing Progress Note Filed: 12/11/2017 6:00 PM Note Text: Nursing Progress Note Patient Name: Luz Baca Patient Location: [place] [id number] Daily Note: 0800- Resting in bed. AANDOx3. Apical regular. Denies chest pain or palpitations. C/O SOB, noticed with minimal talking and coughing. C/O chest soreness with cough, declined pain med. Lungs with coarse wheezes throughout. Resp easy labored at times. Sating 94% on 3L NC. Abd soft. BSx4. Skin warm, dry, color pink. PPP. No edema noted. BLE with reddish-purple discoloration. Heplock to left hand flushed without difficulty. Denies needs. Call light within reach. 0935- PO meds, insulin, and Rocephin IVPB hung via pump. Vibramycin IVPB hung via pump. 1000- Dr. Singer rounds. 1045- Beside swallow screen completed, no coughing or choking noted. Pt denies difficulty with swallowing, c/o sore throat. No thrush noted. Vibramycin and flush completed, heplocked. 1240- Left nares swabbed for flu and sent to lab. Droplet precautions initiated. 1245- Spoke with Dr. Feliciano regarding blood sugar of 397, orders received. 1445- Lasix 40 mg IV given. Diet aiden gurwinder provided. Denies needs. Call light within reach. 1745- Blood sugar 302, spoke with Dr. Feliciano and orders received. 1755- Humalog 37 units SQ given. Denies needs. No changes noted in assessment. Resting in bed, eating dinner. This note was completed by: Leighann Malhotra RN CBC Collected: 12/11/2017 Status: F Source: [place] 5:35 AM [facility] OTHER [place] REPOSITORY TYPE CODE TESTS RESULT OUT OF REFERENCE UNITS RANGE LAB WBC 3.70-11.00 k/uL WBC High 11.17 LAB RBC 3.90-5.20 m/uL RBC 4.63 LAB HGB 11.5-15.5 g/dL Hemoglobin 13.6 LAB HCT 36.0-46.0 % Hematocrit 43.0 LAB MCV 80.0-100.0 fL MCV 92.9 LAB MCH 26.0-34.0 pG MCH 29.4 LAB MCHC 30.5-36.0 g/dL MCHC 31.6 LAB RDWCV 11.5-15.0 % RDW-CV High 16.8 LAB PLTCT 150-400 k/uL Platelet Count 210 LAB MPV 9.0-12.7 fL MPV 10.3 Performed By: #### CBC, CMP, MG1 #### [facility] [address] [place] [address] COMP METABOLIC PANEL Collected: 12/11/2017 Status: F Source: [place] 5:35 AM [facility] REPOSITORY TYPE CODE TESTS RESULT OUT OF REFERENCE UNITS RANGE LAB TP 6.3-8.0 g/dL Protein, Total 7.3 LAB ALB 3.9-4.9 g/dL Low Albumin 3.8 LAB CA 8.5-10.2 mg/dL Calcium, Total 9.8 LAB TBIL 0.2-1.3 mg/dL Bilirubin, Total 0.4 LAB ALKP 32-117 U/L Alkaline Phosphatase 105 LAB AST 13-35 U/L AST 18 LAB GLU 74-99 mg/dL Glucose High 197 Result Comment: The [place] [employer] Association (ADA) provides guidance for cutoff values for fasting glucose and random glucose. The ADA defines fasting as no caloric intake for at least 8 hours. Fas ting plasma glucose results between 100 to 125 mg/dL indicate increased risk for diabetes (prediabetes). Fasting plasma glucose results greater than or equal to 126 mg/dL meet the criteria for diagnosis of diabetes. In the absence of unequivocal hyperglycemia, results should be confirmed by repeat testing. In a patient with classic symptoms of hyperglycemia or hyperglycemic crisis, random plasma glucose results greater than or equal to 200 mg/dL meet the criteria for diagnosis of diabetes. Reference: Standards of Medical Care in Diabetes 2016, [place] [employer] Association. Diabetes Care. 2016.39(Suppl 1). LAB BUN 7-21 mg/dL BUN High 58 LAB CRET 0.58-0.96 mg/dL Creatinine High 1.51 LAB NA 136-144 mmol/L Sodium 141 LAB K 3.7-5.1 mmol/L Potassium 4.7 LAB CL 97-105 mmol/L Low Chloride 94 LAB CO2 22-30 mmol/L CO2 High 35 LAB AGAP 9-18 mmol/L Anion Gap 12 LAB ALT 7-38 U/L ALT 23 LAB GFRAA eGFR- Amer. 41 LAB GFRNAA . eGFR-All Other Races 34 Result Comment: eGFR (Estimated GFR) Units of measure: mL/min/1.73 meters squared eGFR is derived from the reexpressed MDRD Study equation using the following parameters: serum creatinine, age, gender and race. The creatinine assay has been calibrated to be traceable to IDMS. An eGFR <60 mL/min/1.73m2 for >3 months is consistent with chronic kidney disease. Refer to KDOQI guidelines for clinical interpretation. In patients with unstable renal function, e.g. those with acute kidney injury, the eGFR may not accurately reflect actual GFR. Performed By: #### CBC, CMP, MG1 #### [facility] [address] [place] [address] MAGNESIUM Collected: 12/11/2017 Status: F Source: [place] 5:35 AM [facility] REPOSITORY TYPE CODE TESTS RESULT OUT OF REFERENCE UNITS RANGE LAB MG 1.7-2.3 mg/dL Magnesium 2.0 Performed By: #### CBC, CMP, MG1 #### [facility] [address] [place] [address] TROPONIN T Collected: 12/10/2017 Status: F Source: [place] 11:32 PM [facility] REPOSITORY TYPE CODE TESTS RESULT OUT OF REFERENCE UNITS RANGE LAB TROPT 0.000-0.029 ng/mL High Troponin T 0.030 Result Comment: Urgent value previously called 12/10/2017 at [address]. Performed By: #### MARIN #### [facility] [address] [phone] URINALYSIS Collected: 12/10/2017 Status: F Source: [place] 10:05 PM [facility] REPOSITORY TYPE CODE TESTS RESULT OUT OF RANGE REFERENCE UNITS LAB UCOL Yellow Color Yellow LAB [facility] Clear Clarity Clear LAB UGLUC Negative mg/dL Glucose, Abnormal Urine 500 Alert LAB UBIL Negative Bilirubin, Urine Negative LAB UKET Negative Ketones, Urine Negative LAB USPG 1.001-1.029 Specific [place], Ur 1.010 LAB UHGB Negative Hemoglobin/Blood, Negative Ur LAB UPH 5.0-8.0 pH 5.5 LAB UPROT Negative mg/dL Protein, Urine Negative LAB UUROB 0.2-1.0 Urobilinogen 0.2 LAB UNITR Negative Nitrites Negative LAB ULKEST Negative Leukest Abnormal Trace Alert Performed By: #### UA, UAMIC #### [facility] [address] [phone] URINE MICROSCOPIC (FOR Collected: 12/10/2017 Status: F Source: [place] LAB USE ONLY) 10:05 PM [facility] REPOSITORY TYPE CODE TESTS RESULT OUT OF REFERENCE UNITS RANGE LAB UWBC 0-5 /HPF WBC 0-5 LAB URBC 0-3 /HPF RBC 0-3 LAB UCAST 0 /LPF Cast SEE COMMENT Result Comment: 0 LAB UEPI /HPF Epithelial SEE Cells COMMENT Result Comment: 0-5 Squamous Epithelial Cells Performed By: #### UA, UAMIC #### [facility] [address] [place] [phone] Observed: 12/10/2017 Status: F Source: [place] URINE CULTURE 10:05 PM [facility] REPOSITORY Sp. Request/Comment: - Specimen received in preservative Culture Result - <10,000 CFU/ml Normal urogenital mitra Performed By: #### URCUL #### [place] [phone] [facility] [address] [id number] NURSING PROG Observed: 12/10/2017 Status: COMPLETED Source: [place] 8:10 PM [facility] REPOSITORY HNO ID: [id number] Author: Kylah (Rn) ALLYSON Olsen Service: Nursing Author Type: Registered Nurse Type: Nursing Progress Note Filed: 12/10/2017 11:44 PM Note Text: Nursing Progress Note Patient Name: Luz Baca [id number] Daily Note:Hospitalist paged regarding blood sugar and lab results. Per Dr. Guerrero give 5units of humalog and recheck blood sugar in 2 hours. 2330-Hospitalist paged blood sugar 406 after 5 Units. New order to give 10 units now and change to sliding scale two from sliding scale one with humalog coverage ACANDHS. This note was completed by: Kylah Olsen RN Observed: 12/10/2017 Status: F Source: [place] BLOOD CULTURE 6:59 PM [facility] OTHER [place] REPOSITORY Culture Result - No growth 5 days Performed By: #### BLCUL #### [address] [place] [address] TROPONIN T Collected: 12/10/2017 Status: F Source: [place] 6:56 PM [facility] OTHER [place] REPOSITORY TYPE CODE TESTS RESULT OUT OF REFERENCE UNITS RANGE LAB TROPT 0.000-0.029 ng/mL High Troponin T 0.036 Result Comment: Urgent value previously called 12/10/2017 13:11 Performed By: #### MARIN #### [facility] [address] [place] [address] URIC ACID Collected: 12/10/2017 Status: F Source: [place] 6:56 PM [facility] OTHER [place] REPOSITORY TYPE CODE TESTS RESULT OUT OF RANGE REFERENCE UNITS LAB URIC 2.5-6.6 mg/dL High Uric Acid 12.6 Performed By: #### URIC #### [facility] [address] [place] [address] #### MYCOPM #### [facility] [place] [address] [place] [address] MYCOPLASMA IGM AB Collected: 12/10/2017 Status: F Source: [place] 6:56 PM [facility] REPOSITORY TYPE CODE TESTS RESULT OUT OF REFERENCE UNITS RANGE LAB MYCOML Negative M. pneumo Negative IgM, Qual Result Comment: No significant amount of IgM antibodies to M. pneumoniae detected. A nonreactive result indicates no current/previous infection. LAB MYCOM OD Ratio Mycoplasma IgM AB 0.33 Result Comment: Index Values/OD Ratios are interpreted as follows: Negative: < or = 0.90 Equivocal: 0.91 to 1.09 Positive: > or = 1.10 The magnitude of the measured result above the cutoff is not indicative of the total amount of antibody present and cannot be correlated to IFA titers. Performed By: #### URIC #### [address] [phone] #### MYCOPM #### [place] [address] CK, TOTAL AND CKMB Collected: 12/10/2017 Status: F Source: [place] 6:56 [facility] REPOSITORY TYPE CODE TESTS RESULT OUT OF RANGE REFERENCE UNITS LAB CK 42-196 U/L CK 86 Result Comment: Results may be falsely increased due to interference by hemolysis. Suggest reorder as clinically indicated. LAB MB <4.3 ng/mL 6.4 High MB LAB CKMBRI 0.0-4.0 % CK MB % not reported CK MB % with CK <100 U/L. Performed By: #### CKCKMB #### [place] [phone] Observed: 12/10/2017 Status: F Source: [place] BLOOD CULTURE 6:56 PM [facility] REPOSITORY Sp. Request/Comment: - The blood culture bottles are underfilled. Adding volume lower or higher than the 8 to 10 mL per bottle, which is the manufacturers recommended volume, may adversely affect the re covery and/or detection of organisms. 11.9 CC Culture Result - No growth 5 days Performed By: #### BLCUL #### [place] [address] [address] CHEST WO IVCON Observed: 12/10/2017 Status: F Source: [place] 6:40 PM [facility] OTHER [facility] REPOSITORY * * *Final Report* * * DATE OF EXAM: Dec 10 2017 6:40PM [facility] 0541 - CT CHEST WO IVCON / PROCEDURE REASON: Cough in adult * * * * Physician Interpretation * * * * EXAMINATION: CHEST CT WITHOUT CONTRAST Indication: Cough in adult Technique: Spiral CT acquisition of the chest from the thoracic inlet to the upper abdomen without contrast. MQ: [id number] CT Dose-Length Product: 423 mGy*cm CT Dose Reduction Employed: Automated exposure control (AEC) Comparison: Type of study and date/time RESULT: Limitations: None. Lines, tubes, and devices: ICD noted with single lead in RIGHT ventricle. Lung parenchyma and pleura: Posterior LEFT pleural thickening with multiple calcifications. Linear densities RIGHT middle lobe. Focal groundglass opacity posterior RIGHT lower lobe base about 2 cm maximal diameter (4:135). Minimal curvilinear density LEFT lower lobe base. There are a few calcified granulomata. Thoracic inlet, heart, and mediastinum: No lymphadenopathy in the axillary, mediastinal, or hilar regions. The thoracic aorta and main pulmonary artery are normal in caliber. Cardiomegaly. There is coronary artery calcification. No pericardial effusion or thickening. Bones and soft tissues: Status post median sternotomy No destructive bone lesion. Chest wall is unremarkable. Upper abdomen: Superior midline ventral hernia containing fat about 5 8 cm maximal axial dimension with length of 5-6 cm. IMPRESSION: Linear densities RIGHT middle lobe and LEFT lung base consistent with atelectasis and/or fibrosis. Nonspecific groundglass airspace disease posterior RIGHT lower lobe base. Follow-up is recommended. Left pleural thickening with calcific a cyst. This may be due to remote hemothorax. Cardiomegaly Service Delivery Supervisor: PSCB Transcribe Date/Time: Dec 11 2017 8:29A Dictated by : ISABELA SOLIS MD This examination was interpreted and the report reviewed and electronically signed by: ISABELA SOLIS MD on Dec 11 2017 8:54AM EST [id number] [id number] STREP PNEUMO Collected: 12/10/2017 Status: F Source: [place] FOR WEST USE ONLY 6:20 PM [facility]IN[facility] OTHER [facility] REPOSITORY TYPE CODE TESTS RESULT OUT OF REFERENCE UNITS RANGE LAB USTPW Negative Urine Negative Strep Pneumo FOR WEST USE ONLY Result Comment: Strep Pneumo vaccine may cause a false positive Strep Pneumo antigen result in the 48 hours following vaccine. Performed By: #### USTPW #### [facility] [address] [facility] [phone] LEGIONELLA URINE AG Collected: 12/10/2017 Status: F Source: [place] 6:20 PM [facility] OTHER [facility] REPOSITORY TYPE CODE TESTS RESULT OUT OF REFERENCE UNITS RANGE LAB LEGUAG Negative Legionella Urine Negative Ag Performed By: #### LEGUAG #### [facility] [address] [facility] [phone] Observed: 12/10/2017 Status: F Source: [place] MRSA/S AUREUS 6:20 PM [facility] OTHER CAMPUS SCREEN REPOSITORY Sp. Request/Comment: - Eswab Culture Result - Negative for Staphylococcus aureus. Performed By: #### SANSAL #### [facility] [address] [place] [address] HISTORY PHYSICAL Observed: 12/10/2017 Status: COMPLETED Source: [place] 5:43 PM [facility] OTHER [facility]AMP[facility] REPOSITORY HNO ID: [id number] Author: Gloria Singer Service: Hospital Medicine Author Type: Physician Type: HANDP Filed: 12/11/2017 7:29 AM Note Text: HISTORY AND PHYSICAL EXAMINATION SERVICE DATE: 12/10/2017 SERVICE TIME: 5.00PM PRIMARY CARE PHYSICIAN: Jameson Kamara MD Subjective CHIEF COMPLAINT: Chest pain,SOB HPI: This is a 77 year old female with a hx of hypertrophic Cardiomyopathy s/p myomectomy , SVT, Afib, CAD, CABG (pacer/defibrillator), COPD (on 2.5 home O2), HTN, and sleep apnea. Admitted Because of progressive dyspnea at rest, dyspnea on exertion,orthopnea,praoxsymal nocturnal dyspnea, weight gain (on pound in a week). Has cough initially productive of clear phlegm but became yellowish 2 days ago,wheezing,fever 102 a few days ago. Urinating a lot. Has some dysuria. Feels very weak.Have fallen 3 times since March last year.Had head injury with one of the falls . Have been progressively declining since then. Was seen at [place] [facility] and placed on Zpack, prednisone, and tamiflu on 12/06. Have gotten progressively worse since then. She is normally on 2.5 liters O2 but has required more in the past week. Patient was seen by her primary care doctor who wanted her further evaluated at [facility]. FUNCTIONAL STATUS: Limited most or all of the time (uses scooter, mobility device) PAST MEDICAL HISTORY Diagnosis Date - Arthritis - Atrial fibrillation (HCC) - CAD (coronary artery disease) stents x9, defibrillator, CABG. Seeing Dr. Cardona - Cardiac defibrillator in place - Cardiomegaly - Carotid artery disease ([facility]) left - CKD (chronic kidney disease), stage IV ([facility]) - COPD (chronic obstructive pulmonary disease) ([facility]) Dr. Cruz - Depression - Diabetes ([facility]) - Diabetic neuropathy ([facility]) - GERD (gastroesophageal reflux disease) - Gout - HH (hiatus hernia) - HOCM (hypertrophic obstructive cardiomyopathy) ([facility]) - HTN (hypertension) - Hyperlipidemia - Morbid obesity with BMI of 40.0-44.9, adult ([facility]) - Pacemaker - Pneumonia h/o pneumonia/bronchitis - Renal insufficiency 2003 post op - Sleep apnea 2011 not on CPAP, unable to tolerate mask 02/2017 - SVT (supraventricular tachycardia) ([facility]) NSVT and questionable VT in 2003 post op PAST SURGICAL HISTORY Procedure Laterality Date - PAST SURGICAL HISTORY OF 07/18/2004 Septal myectomy and CABG x2 (DEBORAH-LAD, SVG-PDA). - PAST SURGICAL HISTORY OF left breast nodule removed - PAST SURGICAL HISTORY OF hysterectomy - PAST SURGICAL HISTORY OF perianal abscess drained - PAST SURGICAL HISTORY OF cholecystectomy - PAST SURGICAL HISTORY OF skin lesions removed FAMILY HISTORY Problem Relation Age of Onset - Hypertension Mother living at age 93, HTN - Heart Failure Mother [place] - Cancer Father age 71, lung cancer Social History Substance Use Topics - Smoking status: Former Smoker Packs/day: 2.50 Years: 43.00 Types: Cigarettes Start date: 1961 Quit date: 07/07/2004 - Smokeless tobacco: Never Used - Alcohol use No Prescriptions Prior to Admission: azithromycin (ZITHROMAX) 250 mg tablet Take 250 mg by mouth once daily. Disp: Rfl: 0 12/09/2017 predniSONE (DELTASONE) 20 mg tablet Take 3 tablets by mouth once daily. Disp: Rfl: 0 12/09/2017 albuterol (PROVENTIL) 5 mg/mL nebu Inhale 0.5 mL as instructed one time only for 1 dose. 1 DOSE NOW - BACK OFFICE. PLACE 0.5 ML PER DROPPER AND 2.5 ML OF NORMAL SALINE INTO RESERVOIR. Disp: 1 mL Rfl: 0 12/09/2017 colchicine 0.6 mg capsule Take 0.6 mg by mouth once daily. Two tablets in am and 1 tablet one hour later repeat this process for 5 days Disp: Rfl: insulin aspart U-100 (NOVOLOG FLEXPEN U-100 INSULIN) 100 unit/mL inpn Inject 15 Units subcutaneously three times daily with meals. (Patient taking differently: Inject 12 Units subcutaneously three times daily with meals. ) Disp: Rfl: 12/09/2017 insulin glargine (TOUJEO SOLOSTAR U-300 INSULIN) 300 unit/mL (1.5 mL) inpn Take 50 units SQ nightly and 50 units SQ in the morning. (Patient taking differently: Take 60 units SQ nightly and 40 units SQ in the morning. ) Disp: Rfl: 12/09/2017 furosemide (LASIX) 40 mg tablet Take 1 tablet by mouth once daily Disp: Rfl: 12/09/2017 nitroglycerin sublingual (NITROQUICK) 0.4 mg SL tablet Dissolve 1 tablet under the tongue every 5 minutes as needed. Disp: 1 Bottle of 25 Rfl: 0 12/09/[address] (PROTONIX) 40 mg tablet TAKE ONE TABLET BY MOUTH ONCE DAILY Disp: 30 tablet Rfl: 5 12/09/2017 potassium chloride ER (K-DUR, KLOR-CON) 10 mEq tablet TAKE ONE TABLET BY MOUTH DAILY WITH BREAKFAST Disp: 30 tablet Rfl: 5 12/09/2017 gabapentin (NEURONTIN) 300 mg capsule Take 2 capsules by mouth three times daily for 30 days. (Patient taking differently: Take 600 mg by mouth twice daily. ) Disp: Rfl: 12/09/2017 budesonide-formoterol (SYMBICORT) 160-4.5 mcg/actuation inhaler Inhale 2 Puffs as instructed twice daily. Disp: 1 Inhaler Rfl: 5 12/09/2017 albuterol HFA (VENTOLIN HFA) 90 mcg/actuation inhaler Inhale 2 Puffs as instructed every 4 hours as needed. Disp: 1 Inhaler Rfl: 1 12/09/2017 tiotropium bromide (SPIRIVA RESPIMAT) 2.5 mcg/actuation mist Inhale 2 Puffs as instructed once daily. Disp: 1 Inhaler Rfl: 5 12/09/2017 simvastatin (ZOCOR) 40 mg tablet TAKE ONE TABLET BY MOUTH ONCE DAILY AT BEDTIME Disp: 30 tablet Rfl: 3 12/09/2017 OXYGEN, HOME THERAPY, Inhale 2.5 L/min as instructed as directed. Disp: Rfl: 12/09/2017 ipratropium (ATROVENT) 0.02 % nebulizer solution Use 0.5 mg via nebulizer four times daily. Disp: Rfl: 12/09/2017 isosorbide mononitrate ER (IMDUR) 30 mg 24 hr tablet Take 1 tablet by mouth twice daily. (Patient taking differently: Take 30 mg by mouth once daily. ) Disp: 60 tablet Rfl: 2 12/09/2017 apixaban (ELIQUIS) 5 mg tab tab(s) Take 1 tablet by mouth twice daily. (Patient taking differently: Take 2.5 mg by mouth twice daily. ) Disp: 60 tablet Rfl: 2 12/09/2017 ALLERGIES Allergen Reactions - Latex Rash, Itching Itching and welts. No wheezing or shortness of breath. - Penicillins Rash, Itching - Tetracycline GI Upset Emesis and diarrhea. - Atorvastatin Unknown - Bactrim [Sulfametho* Unknown I don't remember. - Codeine Unknown - Dilaudid [Hydromorp* Unknown - Meperidine - Pentazocine - Pioglitazone Unknown - Propoxyphene COMPLETE REVIEW OF SYSTEMS: See HPI Objective PHYSICAL EXAM: Physical Exam Performed: GENERAL: Alert, no distress, cooperative, pauses between sentences due to SOB LUNGS: Harsh breath sounds with mostly rhonchi and few wheezes CARDIAC: Normal S1 and S2; no rubs, murmurs, or gallops ABDOMEN: Abdomen soft, generalized abdominal tenderness, BS normal, No masses or organomegaly EXTREMITIES: 2+elge edema ,stasis dermatitis - extensor surface of both legs , erythema and tenderness of both feet. NEURO: Awake,alert ,oriented x3 BP 162/56 Pulse 48 Temp (Src) 97.5 (Oral) Resp 16 Wt 224 lb (101.6kg) SpO2 94% DATA: Diagnostic tests reviewed for today's visit: Most recent labs and imaging results. Most recent EKG Assessment/Plan Active Problems: Acute exacerbation of CHF (congestive heart failure) (HCC) POA: Yes Assessment AND Plan: Patient with symptoms and CXR findings of Small left pleural effusion with left basilar atelectasis and/or consolidation. Stable cardiomegaly. BNP elevated @ 4154.It was 1513 on 11/12., cr 1.52 improved from 2.05 on 10/28/17 EF 50% on 08/11/17 Start lasix, strict I and O Consult cardiology Continue home meds Elevated troponin POA: Unknown Assessment AND Plan: EKG shows Paced ventricular rhythm,CK 58%, :MB 6 Patient reports chronic chest pain Which is worse over weeks. She had a stress test on 08/11/17 which shows no acute ischemia.EF 50% with apical hypokinesis /dyskinesis Will cycle trops,recheck CKMB,telemetry monitoring. Cardiology consult Diabetes mellitus due to underlying condition, uncontrolled, with stage 3 chronic kidney disease, with long-term current use of insulin (HCC) POA: Yes Assessment AND Plan: HBAIC 16.1 on 10/27 Resume home Insulin dose Add SSI Anticipate worsening glycemic control So Endocrinology consult am CKD stage 3 Cr 1.52 improved from 2.05 on 10/28/17 Continue to monitor bharti while on diuresis Renally dose meds Avoid nephrotoxins Daily BMP COPD with acute exacerbation (HCC) POA: Unknown Assessment AND Plan: Patient rxed with azt,steroid and tamiflu w/out improvement . Start ceftriaxone and doxy, breathing rx ,steroids Check legionella,mycoplasma,strept pneumonia ,procal ,sputum culture Check CT chest Acute on chronic respiratory failure with hypoxia (HCC) POA: Unknown Assessment AND Plan: Patient uses 2.5liters at home now on 3l. ABG shows normal PH, respiratory acidosis with metabolic compensation Continue oxyegn supplementation to keep SPO2 92>above Gout :patient complains of foot pain due to gout. Started on steroid for COPD exacerbation which will help with gout Continue cochicine from home Check uric acid Dysuria:Chek UA/culture PAF/HOCM S/P septal myomectomy in 2004/S/P pacemaker placement,CAD/CABG /hypertension Resume home meds Weakness/debility:PT/OT Code status :Full SIGNATURE: Gloria Singer MD PATIENT NAME: Luz Baca DATE: December 10, 2017 TIME: 5:43 PM PAGER/CONTACT #: ED NOTE Observed: 12/10/2017 Status: COMPLETED Source: [place] 2:19 PM CLIN[facility] OTHER CAMPUS REPOSITORY HNO ID: [id number] Author: Luba OsheaRn) ALLYSON Kauffman Service: Emergency Medicine Author Type: Registered Nurse Type: ED Notes Filed: 12/10/2017 2:19 PM Note Text: SBAR report called to Harleen VALADEZ on [address]. No further questions for this RN. Pt is stable for transport. CASE MGT INIT Observed: 12/10/2017 Status: COMPLETED Source: [facility] 2:10 PM CLINIC OTHER CAMPUS REPOSITORY HNO ID: [id number] Author: Zenobia OsheaRn) ALLYSON Soto Service: (none) Author Type: Registered Nurse Type: Care Mgt Initial Assessment Filed: 12/10/2017 2:20 PM Note Text: CARE MANAGEMENT: ASSESSMENT AND DISCHARGE PLAN SERVICE DATE: 12/10/2017 SERVICE TIME: 2:10 PM PRIMARY CARE PHYSICIAN: Jameson Kamara MD (confirmed) Prefers appts after 1100 ADMISSION STATUS: Emergency POTENTIAL DISCHARGE PLANS Home Retirement OT/PT To Be Determined Patient/Home And School Visitor Stated Goals: CM in to speak with patient and dtr Octavia at bedside, introduced self and role. Pt is a 77y/o, with h/o hypertrophic Cardiomyopathy, SVT, Afib, CAD, CABG (pacer/defibrillator), COPD (on 2.5 home O2), HTN, and sleep apnea , presents s/p PCP appointment for evaluation and admission for COPD exacerbation. Pt is AANDOx3-4, resides with dtr Octavia in a 1SH with 2STE. REGULATOR ASSEMBLER pt was an assist with ADL's, dtr is home to assist. Pt uses walker, rollator, bedside commode Denies use of HHC or SNF. Per pt, plan is to return home with assist from dtr. CM instructed pt that a CM will remain available for any d/c needs. Pt had no further questions/concerns voiced at this time. Needs Prior to Discharge: To Be Determined;Home Care Order;OT/PT Evaluation Health Insurance: Medicare Living Arrangement: Home Lives With: Daughter Financial Resources: Retired Primary Contact: Extended Emergency Contact Information Primary Emergency Contact: Octavia Soliman Address: [address] [place] [address] [place] [id number] Relation: Daughter Supportive: Yes Other Important Patient Contacts: None CAREGIVER ASSESSMENT: Caregiver is ready, willing and able to meet the patient's needs as recommended by the inter-professional team? TBD Patient's transition needs and plan for meeting these needs: TBD Does the patient have an acute stroke diagnosis, or has the patient had a stroke during this admission? No ADVANCE DIRECTIVES: Does Patient Have Advance Directives? No, copies given Does Patient Have Concerns About Advance Directives? No PRIOR TO ADMISSION: Baseline Mental Status: Alert AND Oriented, Person, Place , Time and Situation Functional Status: Needs Assistance Does Patient Currently Receive Any Community Services or Home Care? None Equipment Prior to Admission: Bedside Commode Oxygen 2.5 liters per minute Rollator Scooter Walker HEALTH: Health Issues Impacting Discharge Plan: with h/o hypertrophic Cardiomyopathy, SVT, Afib, CAD, CABG (pacer/defibrillator), COPD (on 2.5 home O2), HTN, and sleep apnea Health Literacy Issues: No PSYCHOSOCIAL: Is the Patient Psychosocially Complex? No Family/Patient Understanding of Illness/Diagnosis: yes Medication Adherence: Do you forget to take your medications? I do not forget to take my medication, dtr manages meds Have you ever stopped taking medications because you felt worse? None of the time Have you ever taken less of your medication than what was prescribed by your doctor? None of the time In the past 3 months, have you had issues obtaining one or more of your medications? None of the time Are you interested in bedside delivery of your medications? No Food Concerns: In the Last Month, Have You had Trouble Getting Food? Yes, due to: Finances During the Last Month, Have You Worried Whether Your Food Would Run Out Before You Had Enough Money to Buy More? Yes, provided resources for local food pantries, MOW Psychosocial Needs: None UTILIZATION: Last Admission Date: Previous admit date: 09/23/2010 Is this Within the Past 30 days? No Has the Patient Been in a Snf Facility in the Past 30 days? No FREEDOM OF CHOICE EXPLAINED: Yes HHC/SNF HANDOFF COMMUNICATION: Summary of Care to be sent to PCP SIGNATURE: Zenobia Soto RN PATIENT NAME: Luz Baca DATE: December 10, 2017 TIME: 2:10 PM PAGER/CONTACT #: [phone] ED NOTE Observed: 12/10/2017 Status: COMPLETED Source: [place] 2:01 PM CLINIC OTHER CAMPUS REPOSITORY HNO ID: [id number] Author: Luba Briseno) ALLYSON Kauffman Service: Emergency Medicine Author Type: Registered Nurse Type: ED Notes Filed: 12/10/2017 2:01 PM Note Text: Heads up called to 2 grandfalls charge nurse ED NOTE Observed: 12/10/2017 Status: COMPLETED Source: [place] 1:36 PM [facility] OTHER [place] REPOSITORY HNO ID: [id number] Author: Luba Briseno) ALLYSON Kauffman Service: Emergency Medicine Author Type: Registered Nurse Type: ED Notes Filed: 12/10/2017 1:36 PM Note Text: Care of patient assumed at this time PLAN OF CARE Observed: 12/10/2017 Status: COMPLETED Source: [place] 1:06 PM [facility] REPOSITORY HNO ID: [id number] Author: Dannie Murray (Email Administrator) Service: Pharmacy Author Type: Pharmacist Type: Plan of Care Filed: 12/10/2017 1:07 PM Note Text: MEDICATION HISTORY Patient Name:Josephine Baca : 1940 Source of history:Patient: Reliability of source: Appears reliable, clearly identified: Medication name, Medication dose, Medication route, Medication frequency and Timing of last dose and Family Medication Nonadherence Identified: No barriers noted The above information represents the best possible medication history: Yes Additional comments: ? Medications removed: ? Duplicates ? levofloxacin ? Medications adjusted: ? apixiban ? Gabapentin ? isosorbide ? Medications added: ? none ? Allergy list modifications: ? none Allergies: ALLERGIES Allergen Reactions - Latex Rash, Itching Itching and welts. No wheezing or shortness of breath. - Penicillins Rash, Itching - Tetracycline GI Upset Emesis and diarrhea. - Atorvastatin Unknown - Bactrim [Sulfametho* Unknown I don't remember. - Codeine Unknown - Dilaudid [Hydromorp* Unknown - Meperidine - Pentazocine - Pioglitazone Unknown - Propoxyphene Current REGULATOR ASSEMBLER Medications: Prior to Admission medications as of 12/10/17 1306 Medication Sig Last Dose Taking azithromycin (ZITHROMAX) 250 mg tablet Take 250 mg by mouth once daily. 12/09/2017 Yes predniSONE (DELTASONE) 20 mg tablet Take 3 tablets by mouth once daily. 12/09/2017 Yes albuterol (PROVENTIL) 5 mg/mL nebu Inhale 0.5 mL as instructed one time only for 1 dose. 1 DOSE NOW - BACK OFFICE. PLACE 0.5 ML PER DROPPER AND 2.5 ML OF NORMAL SALINE INTO RESERVOIR. 12/09/2017 Yes insulin aspart U-100 (NOVOLOG FLEXPEN U-100 INSULIN) 100 unit/mL inpn Inject 15 Units subcutaneously three times daily with meals. 12/09/2017 Yes insulin glargine (TOUJEO SOLOSTAR U-300 INSULIN) 300 unit/mL (1.5 mL) inpn Take 50 units SQ nightly and 50 units SQ in the morning. 12/09/2017 Yes furosemide (LASIX) 40 mg tablet Take 1 tablet by mouth once daily 12/09/2017 Yes nitroglycerin sublingual (NITROQUICK) 0.4 mg SL tablet Dissolve 1 tablet under the tongue every 5 minutes as needed. 12/09/[address] (PROTONIX) 40 mg tablet TAKE ONE TABLET BY MOUTH ONCE DAILY 12/09/2017 Yes potassium chloride ER (K-DUR, KLOR-CON) 10 mEq tablet TAKE ONE TABLET BY MOUTH DAILY WITH BREAKFAST 12/09/2017 Yes gabapentin (NEURONTIN) 300 mg capsule Take 2 capsules by mouth three times daily for 30 days. Patient taking differently: Take 600 mg by mouth twice daily. 12/09/2017 Yes budesonide-formoterol (SYMBICORT) 160-4.5 mcg/actuation inhaler Inhale 2 Puffs as instructed twice daily. 12/09/2017 Yes albuterol HFA (VENTOLIN HFA) 90 mcg/actuation inhaler Inhale 2 Puffs as instructed every 4 hours as needed. 12/09/2017 Yes tiotropium bromide (SPIRIVA RESPIMAT) 2.5 mcg/actuation mist Inhale 2 Puffs as instructed once daily. 12/09/2017 Yes simvastatin (ZOCOR) 40 mg tablet TAKE ONE TABLET BY MOUTH ONCE DAILY AT BEDTIME 12/09/2017 Yes OXYGEN, HOME THERAPY, Inhale 2.5 L/min as instructed as directed. 12/09/2017 Yes ipratropium (ATROVENT) 0.02 % nebulizer solution Use 0.5 mg via nebulizer four times daily. 12/09/2017 Yes isosorbide mononitrate ER (IMDUR) 30 mg 24 hr tablet Take 1 tablet by mouth twice daily. Patient taking differently: Take 30 mg by mouth once daily. 12/09/2017 Yes apixaban (ELIQUIS) 5 mg tab tab(s) Take 1 tablet by mouth twice daily. Patient taking differently: Take 2.5 mg by mouth twice daily. 12/09/2017 Yes DANNIE MURRAY, CONTACT LENS BLOCKER December 10, 2017 1:06 PM CBC AND DIFFERENTIAL Collected: 12/10/2017 Status: F Source: [place] 12:20 PM [facility] OTHER CAMPUS REPOSITORY TYPE CODE TESTS RESULT OUT OF REFERENCE UNITS RANGE LAB WBC 3.70-11.00 k/uL WBC 10.08 LAB RBC 3.90-5.20 m/uL RBC 4.55 LAB HGB 11.5-15.5 g/dL Hemoglobin 13.3 LAB HCT 36.0-46.0 % Hematocrit 42.4 LAB MCV 80.0-100.0 fL MCV 93.2 LAB MCH 26.0-34.0 pG MCH 29.2 LAB MCHC 30.5-36.0 g/dL MCHC 31.4 LAB RDWCV 11.5-15.0 % RDW-CV High 17.0 LAB PLTCT 150-400 k/uL Platelet Count 175 LAB MPV 9.0-12.7 fL MPV 10.1 LAB ANEUT % Neut% 84.1 LAB AANEUT 1.45-7.50 k/uL Abs Neut High 8.47 LAB ALYMP % Lymph% 7.3 LAB AALYMP 1.00-4.00 k/uL Low Abs Lymph 0.74 LAB AMONO % Stoddard% 8.0 LAB AAMONO <0.87 k/uL Abs Stoddard 0.81 LAB AEOS % Eosin% 0.4 LAB AAEOS <0.46 k/uL Abs Eosin 0.04 LAB ABASO % Baso% 0.2 LAB AABASO <0.11 k/uL Abs Baso <0.03 Performed By: #### CBCDIF, CMP #### [facility] [address] [place] [address] COMP METABOLIC PANEL Collected: 12/10/2017 Status: F Source: [place] 12:20 PM [facility] OTHER [place] REPOSITORY TYPE CODE TESTS RESULT OUT OF REFERENCE UNITS RANGE LAB TP 6.3-8.0 g/dL Protein, Total 7.5 LAB ALB 3.9-4.9 g/dL Low Albumin 3.8 LAB CA 8.5-10.2 mg/dL Calcium, Total 9.3 LAB TBIL 0.2-1.3 mg/dL Bilirubin, Total 0.4 LAB ALKP 32-117 U/L Alkaline Phosphatase 111 LAB AST 13-35 U/L AST 20 LAB GLU 74-99 mg/dL Glucose High 383 Result Comment: The [place] [employer] (ADA) provides guidance for cutoff values for fasting glucose and random glucose. The ADA defines fasting as no caloric intake for at least 8 hours. Fas ting plasma glucose results between 100 to 125 mg/dL indicate increased risk for diabetes (prediabetes). Fasting plasma glucose results greater than or equal to 126 mg/dL meet the criteria for diagnosis of diabetes. In the absence of unequivocal hyperglycemia, results should be confirmed by repeat testing. In a patient with classic symptoms of hyperglycemia or hyperglycemic crisis, random plasma glucose results greater than or equal to 200 mg/dL meet the criteria for diagnosis of diabetes. Reference: Standards of Medical Care in Diabetes 2016, [place] [employer]. Diabetes Care. 2016.39(Suppl 1). LAB BUN 7-21 mg/dL BUN High 58 LAB CRET 0.58-0.96 mg/dL Creatinine High 1.52 LAB NA 136-144 mmol/L Sodium 141 LAB K 3.7-5.1 mmol/L Potassium 4.8 LAB CL 97-105 mmol/L Low Chloride 96 LAB CO2 22-30 mmol/L CO2 High 31 LAB AGAP 9-18 mmol/L Anion Gap 14 LAB ALT 7-38 U/L ALT 25 LAB GFRAA eGFR- Amer. 40 LAB GFRNAA . eGFR-All Other Races 33 Result Comment: eGFR (Estimated GFR) Units of measure: mL/min/1.73 meters squared eGFR is derived from the reexpressed MDRD Study equation using the following parameters: serum creatinine, age, gender and race. The creatinine assay has been calibrated to be traceable to IDMS. An eGFR <60 mL/min/1.73m2 for >3 months is consistent with chronic kidney disease. Refer to KDOQI guidelines for clinical interpretation. In patients with unstable renal function, e.g. those with acute kidney injury, the eGFR may not accurately reflect actual GFR. Performed By: #### CBCDIF, CMP #### [facility] [address] [facility] [phone] NT PRO BNP Collected: 12/10/2017 Status: F Source: [place] 12:20 PM [facility] REPOSITORY TYPE CODE TESTS RESULT OUT OF REFERENCE UNITS RANGE LAB PBNP <450 pg/mL High PRO B Natr 4154 Peptide Performed By: #### NTBNP, CKCKMB #### [facility] [address] [place] [address] CK, TOTAL AND CKMB Collected: 12/10/2017 Status: F Source: [place] 12:20 PM [facility] OTHER [place] REPOSITORY TYPE CODE TESTS RESULT OUT OF REFERENCE UNITS RANGE LAB CK 42-196 U/L 58 CK LAB MB <4.3 ng/mL High MB 6.0 LAB CKMBRI 0.0-4.0 % CK CK MB MB % not % reported with CK <100 U/L. Performed By: #### NTBNP, CKCKMB #### [facility] [address] [place] [address] TROPONIN T Collected: 12/10/2017 Status: F Source: [place] 12:20 PM [facility] REPOSITORY TYPE CODE TESTS RESULT OUT OF REFERENCE UNITS RANGE LAB TROPT 0.000-0.029 ng/mL High Troponin T 0.038 Result Comment: Called to and read back by: Sunil Felton [facility] 12/10/2017 Anupam Presley Performed By: #### MARIN #### [facility] [address] [place] [address] ED NOTE Observed: 12/10/2017 Status: COMPLETED Source: [place] 12:12 PM [facility] REPOSITORY HNO ID: [id number] Author: Elsy OsheaRn) ALLYSON Felton Service: (none) Author Type: Registered Nurse Type: ED Notes Filed: 12/10/2017 12:12 PM Note Text: Plan of care -Monitor Patient's Vital Signs for changes in condition -Monitor patient for changes in pain -Maintain patient safety and privacy -Provide comfort measures -Call light in place Siderails up, bed in locked and low position ED PROV NOTE Observed: 12/10/2017 Status: COMPLETED Source: [place] 11:56 AM [facility] OTHER [place] REPOSITORY HNO ID: [id number] Author: Cheri Andrew MD Service: (none) Author Type: Physician Type: ED Provider Notes Filed: 12/10/2017 1:56 PM Note Text: ED Provider Note Patient Name: Luz Baca SERVICE DATE: 12/10/17 History Patient presents with: Shortness of Breath Chest Pain HPI Comments: Patient with h/o hypertrophic Cardiomyopathy, SVT, Afib, CAD, CABG (pacer/defibrillator), COPD (on 2.5 home O2), HTN, and sleep apnea who presents with increasing sob, edmonds, wheezing, and productive cough for one month. She was seen at [place] [facility] and placed on Zpack, prednisone, and tamiflu on 12/06. She has gotten progressively worse since then. She is normally on 2.5 liters O2 but has required more in the past week. Patient was seen by her primary care doctor who wanted her further evaluated at [facility]. History provided by: Patient PAST MEDICAL HISTORY Diagnosis Date - Arthritis - Atrial fibrillation (HCC) - CAD (coronary artery disease) stents x9, defibrillator, CABG. Seeing Dr. Cardona - Cardiac defibrillator in place - Cardiomegaly - Carotid artery disease (HCC) left - CKD (chronic kidney disease), stage IV ([facility]) - COPD (chronic obstructive pulmonary disease) ([facility]) Dr. Cruz - Depression - Diabetes ([facility]) - Diabetic neuropathy ([facility]) - GERD (gastroesophageal reflux disease) - Gout - HH (hiatus hernia) - HOCM (hypertrophic obstructive cardiomyopathy) ([facility]) - HTN (hypertension) - Hyperlipidemia - Morbid obesity with BMI of 40.0-44.9, adult ([facility]) - Pacemaker - Pneumonia h/o pneumonia/bronchitis - Renal insufficiency 2003 post op - Sleep apnea 2011 not on CPAP, unable to tolerate mask 02/2017 - SVT (supraventricular tachycardia) ([facility]) NSVT and questionable VT in 2003 post op PAST SURGICAL HISTORY Procedure Laterality Date - PAST SURGICAL HISTORY OF 07/18/2004 Septal myectomy and CABG x2 (DEBORAH-LAD, SVG-PDA). - PAST SURGICAL HISTORY OF left breast nodule removed - PAST SURGICAL HISTORY OF hysterectomy - PAST SURGICAL HISTORY OF perianal abscess drained - PAST SURGICAL HISTORY OF cholecystectomy - PAST SURGICAL HISTORY OF skin lesions removed FAMILY HISTORY Problem Relation Age of Onset - Hypertension Mother living at age 93, HTN - Heart Failure Mother [place] - Cancer Father age 71, lung cancer Social History Social History Main Topics - Smoking status: Former Smoker Packs/day: 2.50 Years: 43.00 Types: Cigarettes Start date: 1961 Quit date: 07/07/2004 - Smokeless tobacco: Never Used - Alcohol use No - Drug use: No - Sexual activity: Not Asked ALLERGIES Allergen Reactions - Latex Rash, Itching Itching and welts. No wheezing or shortness of breath. - Penicillins Rash, Itching - Tetracycline GI Upset Emesis and diarrhea. - Atorvastatin Unknown - Bactrim [Sulfametho* Unknown I don't remember. - Codeine Unknown - Dilaudid [Hydromorp* Unknown - Meperidine - Pentazocine - Pioglitazone Unknown - Propoxyphene Review of Systems Constitutional: Negative. Negative for chills and fever. HENT: Negative for congestion. Eyes: Negative. Respiratory: Positive for cough, shortness of breath and wheezing. Cardiovascular: Negative. Negative for chest pain, palpitations and leg swelling. Gastrointestinal: Negative. Negative for abdominal pain, diarrhea, nausea and vomiting. Genitourinary: Negative. Negative for difficulty urinating. Musculoskeletal: Negative. Skin: Negative. Neurological: Negative. Psychiatric/Behavioral: Negative. Physical Exam BP 153/67 Pulse 62 Temp (Src) 97.8 (Oral) Resp 20 SpO2 96% Physical Exam Constitutional: She is oriented to person, place, and time. She appears well-developed and well-nourished. No distress. HENT: Head: Normocephalic and atraumatic. Right Ear: External ear normal. Left Ear: External ear normal. Nose: Nose normal. Mouth/Throat: Oropharynx is clear and moist. Eyes: Conjunctivae and EOM are normal. Pupils are equal, round, and reactive to light. Neck: Normal range of motion. Neck supple. Cardiovascular: Normal rate, regular rhythm, normal heart sounds and intact distal pulses. No murmur heard. Pulmonary/Chest: Effort normal. No stridor. Tachypnea noted. No respiratory distress. She has wheezes in the right middle field, the right lower field, the left middle field and the left lower field. She has rhonchi in the right middle field, the right lower field, the left middle field and the left lower field. She has no rales. She exhibits no tenderness. Abdominal: Soft. Bowel sounds are normal. She exhibits no distension. There is no tenderness. There is no rebound. Musculoskeletal: Normal range of motion. She exhibits no edema or tenderness. Lymphadenopathy: She has no cervical adenopathy. Neurological: She is alert and oriented to person, place, and time. Skin: Skin is warm and dry. No rash noted. No erythema. Psychiatric: She has a normal mood and affect. Her behavior is normal. Judgment and thought content normal. Nursing note and vitals reviewed. Diagnostic Testing ED Labs Ordered and Reviewed - No data to display Procedures Medical Decision Making / ED Course ED Course patient here with sob/cough despite Rx zpack and prednisone. Concern for CHF by primary. Sent to [facility] for admission. Clinically, she has diffuse wheezing with ronchi concerning for pneumonia but could also have superimposed CHF. CXR shows questionable atelectasis vs infiltrate left lower lung with effusion, BNP 4154, WBC 10.08, BUN/Cr 58/2.52, glucose 383, EKG paced ventricular rhythm with CPK 58, trop 0.038, patient currently takes eliquis. D/w Dr. Harrison regarding admission and treatment. Also, discussed with her that if no better after treatment for above she may need more definitive test to check for PE. She clinically has evidence of both pneumonia and CHF. No diagnosis found. Plan The Patient was admitted to floor in stable condition. SIGNATURE: MD Cheri Arriaga MD 12/10/17 1356 XR CHEST 2V FRONTAL/LAT Observed: 12/10/2017 Status: F Source: [place] 11:49 AM CLINIC OTHER CAMPUS REPOSITORY * * *Final Report* * * DATE OF EXAM: Dec 10 2017 11:49AM MDX [id number] - XR CHEST 2V FRONTAL/LAT / PROCEDURE REASON: SOB (shortness of breath) * * * * Physician Interpretation * * * * EXAMINATION: CHEST RADIOGRAPH (2 VIEW FRONTAL and LATERAL) Clinical History: SOB (shortness of breath) MQ: XC2_4 Comparison: 10/27/2017, 09/23/2010 RESULT: Lines, tubes, and devices: A single lead cardiac pacing device overlies the left hemithorax. Lungs and pleura: There is a small left pleural effusion with left basilar atelectasis and/or consolidation. No pneumothorax. There is a nodular density in the right upper lung field which may relate to pulmonary nodule and appears to been present on prior exam of 2009. Cardiomediastinal silhouette: Stable cardiomegaly. Sternotomy wires and mediastinal clips suggest prior CABG. Other: No acute osseous abnormality is identified. IMPRESSION: Small left pleural effusion with left basilar atelectasis and/or consolidation. Stable cardiomegaly. Service Delivery Supervisor: SALINAS Transcribe Date/Time: Dec 10 2017 11:53A Dictated by : SPEEDY CAM MD This examination was interpreted and the report reviewed and electronically signed by: SPEEDY CAM MD on Dec 10 2017 11:56AM EST [id number] ED NOTE Observed: 12/10/2017 Status: COMPLETED Source: [place] 11:40 AM [facility] OTHER CAMPUS REPOSITORY HNO ID: [id number] Author: Luba OsheaRn) ALLYSON Kauffman Service: Emergency Medicine Author Type: Registered Nurse Type: ED Notes Filed: 12/10/2017 11:42 AM Note Text: Pt presents s/p PCP appointment for evaluation and admission for COPD exacerbation. Pt states she has had worsening SOB and chest pain since October. Chest pain is described as intermittently severe and is worse with activity and a deep breath. PROGRESS Observed: 12/10/2017 Status: COMPLETED Source: [place] 9:39 AM [facility] [place] REPOSITORY HNO ID: [id number] Author: Remi Briseno) Brent Service: (none) Author Type: Registered Nurse Type: Progress Notes Filed: 12/10/2017 10:29 AM Note Text: PRIMARY CARE COORDINATION IN OFFICE VISIT WITH PCP Patient has been identified by name and date of . PCP Assessment/Plan: Reviewed PCP plan with patient using [facility] PCC Plan of Care: Patient concerns: Pt states she's felt bad since Oct and would prefer to go to the hospital because her breathing is so bad and nebulizer only helps for one hour. PCC Interventions: Re-scheduled appointment for Dr. Hogan from 12/13 until 01/03, Appointment Reminder given to daughter. Next Office Visit: 01/26/2018 Plan For Next Call: Will F/U after discharge Remi Kennedy RN December 10, 2017 PROGRESS Observed: 12/10/2017 Status: COMPLETED Source: [place] 8:48 AM [facility] REPOSITORY HNO ID: [id number] Author: Adriel Pringle Service: (none) Author Type: Nurse Practitioner Type: Progress Notes Filed: 12/10/2017 9:57 AM Note Text: 12/10/2017 Patient presents with: ER F/U: COPD exacerbation SUBJECTIVE: This is a 77 year old that is here today with daughter for follow up. She states that she has not felt well since beginning of October. She has been seen by PCP (Dr. Kamara), supervisor porcelain department (Dr. Cardona), signal inspector (Dr. Daniel), and food and beverage operations manager (Dr. Martin) within the last month. Dr. Cardona had increased lasix to 60 mg daily- she states that she is urinating more, but continues to have leg swelling and has not noticed a change. She was seen by nephrology on 11/29 and treated for UTI with Levaquin, stopped spironolactone and amlodipine. She went to [facility] ED 12/06 for increased cough. CXR showed cardiomegaly and pulmonary vascular congestion. Blood cultures negative, flu negative, kidney function stable, normal WBC. She was treated with Zpak and prednisone. They also gave one dose of tamiflu in the ER in case flu was positive, but it came back negative and she stopped the course. She states that she noticed some improvement with prednisone, but not a lot. She continues to use her prescribed inhalers and nebulizers about 4 times a day. She has relief for about an hour after the nebulizer. Moist cough. Chest pressure from coughing and when deep breathing. She states that the chest pressure itself will wake her up at night, a cough is not necessary. Chest pressure seems worse around the site of the defib. She states that she is drinking a lot of fluid a day because she is always thirsty with this cough. Blood sugars have been running high. She met with [facility] pharmD 12/02. She states that she does not think that she can handle feeling like this for much longer and would prefer to go the hospital. PAST MEDICAL HISTORY Diagnosis Date - Arthritis - Atrial fibrillation (HCC) - CAD (coronary artery disease) stents x9, defibrillator, CABG. Seeing Dr. Cardona - Cardiac defibrillator in place - Cardiomegaly - Carotid artery disease (HCC) left - CKD (chronic kidney disease), stage IV (HCC) - COPD (chronic obstructive pulmonary disease) ([facility]) Dr. Cruz - Depression - Diabetes ([facility]) - Diabetic neuropathy ([facility]) - GERD (gastroesophageal reflux disease) - Gout - HH (hiatus hernia) - HOCM (hypertrophic obstructive cardiomyopathy) ([facility]) - HTN (hypertension) - Hyperlipidemia - Morbid obesity with BMI of 40.0-44.9, adult ([facility]) - Pacemaker - Pneumonia h/o pneumonia/bronchitis - Renal insufficiency 2003 post op - Sleep apnea 2011 not on CPAP, unable to tolerate mask 02/2017 - SVT (supraventricular tachycardia) ([facility]) NSVT and questionable VT in 2003 post op ALLERGIES Latex; Penicillins; Tetracycline; Atorvastatin; Bactrim [Sulfamethoxazole-Trimethoprim]; Codeine; Dilaudid [Hydromorphone (Bulk)]; Meperidine; Pentazocine; Pioglitazone; Propoxyphene MEDICATIONS Current Outpatient Prescriptions: azithromycin (ZITHROMAX) 250 mg tablet Take 250 mg by mouth once daily. levoFLOXacin (LEVAQUIN) 250 mg tablet Take 2 tablets by mouth as directed. Take 2 tablets today then 1 tablet daily for 7 days. predniSONE (DELTASONE) 20 mg tablet Take 3 tablets by mouth once daily. insulin aspart U-100 (NOVOLOG FLEXPEN U-100 INSULIN) 100 unit/mL inpn Inject 15 Units subcutaneously three times daily with meals. insulin glargine (TOUJEO SOLOSTAR U-300 INSULIN) 300 unit/mL (1.5 mL) inpn Take 50 units SQ nightly and 50 units SQ in the morning. furosemide (LASIX) 40 mg tablet Take 1 tablet by mouth once daily nitroglycerin sublingual (NITROQUICK) 0.4 mg SL tablet Dissolve 1 tablet under the tongue every 5 minutes as needed. pantoprazole DR (PROTONIX) 40 mg tablet TAKE ONE TABLET BY MOUTH ONCE DAILY potassium chloride ER (K-DUR, KLOR-CON) 10 mEq tablet TAKE ONE TABLET BY MOUTH DAILY WITH BREAKFAST gabapentin (NEURONTIN) 300 mg capsule Take 2 capsules by mouth three times daily for 30 days. budesonide-formoterol (SYMBICORT) 160-4.5 mcg/actuation inhaler Inhale 2 Puffs as instructed twice daily. albuterol HFA (VENTOLIN HFA) 90 mcg/actuation inhaler Inhale 2 Puffs as instructed every 4 hours as needed. tiotropium bromide (SPIRIVA RESPIMAT) 2.5 mcg/actuation mist Inhale 2 Puffs as instructed once daily. simvastatin (ZOCOR) 40 mg tablet TAKE ONE TABLET BY MOUTH ONCE DAILY AT BEDTIME OXYGEN, HOME THERAPY, Inhale 2.5 L/min as instructed as directed. ALBUTEROL SULFATE INHALATION Inhale as instructed. ipratropium (ATROVENT) 0.02 % nebulizer solution Use 0.5 mg via nebulizer four times daily. isosorbide mononitrate ER (IMDUR) 30 mg 24 hr tablet Take 1 tablet by mouth twice daily. apixaban (ELIQUIS) 5 mg tab tab(s) Take 1 tablet by mouth twice daily. No current facility-administered medications for this visit. Medications and allergies reviewed by this provider. SOCIAL HISTORY Social History Marital status: Spouse name: Years of education: Number of children: Social History Main Topics Smoking status: Former Smoker Packs/day: 2.50 Years: 43.00 Types: Cigarettes Start date: 1961 Quit date: 07/07/2004 Smokeless status: Never Used Alcohol use: No Drug use: No Other Topics Concern Caffeine Concern Yes Comment:coffee 1 cup daily Special Diet No Comment:Regular Exercise No Comment:no unable, due to SOB x several months. REVIEW OF SYSTEMS see HPI OBJECTIVE: BP 140/80 (BP Site: Left Arm, BP Position: Sitting, BP Cuff Size: Large Adult) Pulse 64 Temp 36 ?C (96.8 ?F) (Right Tympanic) Resp 28 Wt 101.7 kg (224 lb 1.9 oz) SpO2 93% BMI 34.08 kg/m2. Vital signs reviewed by this provider. PHYSICAL EXAMINATION: General appearance: ill appearing, worse when coughing Skin: Skin color, texture, turgor normal, no suspicious rashes or lesions Lungs: Positive findings: wheezing , crackles , rhonchi , tachypnea, Moist Cough- no improvement after albuterol treatment in office Heart: RRR without murmur, gallop, or rubs. No ectopy Extremities: Pulses: 2+, Edema: 1+ pitting BLE ASSESSMENT/PLAN: 1. Heart failure, systolic, acute (HCC) - ICD9: 428.21, ICD10: I50.21 (primary diagnosis) - concern for decompensation, report called to Emy Moraes. No changes made by me today, will allow ER to work up for possible admission. 2. CKD (chronic kidney disease), stage IV (HCC) - ICD9: 585.4, ICD10: N18.4 - following with Dr. Martin 3. Dyspnea, unspecified type - ICD9: 786.09, ICD10: R06.00 - worsening - albuterol treatment in office - likely CHF, report called to [facility] 4. Chronic obstructive pulmonary disease, unspecified COPD type (HCC) - ICD9: 496, ICD10: J44.9 - following with Dr. Cruz 5. Fever, unspecified fever cause - ICD9: 780.60, ICD10: R50.9 - unknown etiology - will await possible further work up at [facility] Adriel Pringle, BACKHAUL DRIVER CNPTOUTREACH Observed: 12/10/2017 Status: COMPLETED Source: [place] 12:00 AM [facility] REPOSITORY Patient Outreach (FAMPWS) LUZ BACA ([id number]) 1940 F Date Time Provider Department 12/10/17 REMI KENNEDY (ALLYSON) SLOANWS During your visit today, we recorded the following information about you: Remi Kennedy RN 12/10/2017 10:29 AM Addendum PRIMARY CARE COORDINATION IN OFFICE VISIT WITH PCP Patient has been identified by name and date of . PCP Assessment/Plan: Reviewed PCP plan with patient using [facility] to ED PCC Plan of Care: Patient concerns: Pt states she's felt bad since Oct and would prefer to go to the hospital because her breathing is so bad and nebulizer only helps for one hour. PCC Interventions: Re-scheduled appointment for Dr. Hogan from 12/13 until 01/03, Appointment Reminder given to daughter. Next Office Visit: 01/26/2018 Plan For Next Call: Will F/U after discharge Remi Kennedy RN December 10, 2017 Allergies As of Date: 12/10/2017 Noted Allergy Reaction LATEX 05/17/2017 2 - Rash 9 - Itching Comments: Itching and welts. No wheezing or shortness of breath. PENICILLINS 07/14/2004 2 - Rash 9 - Itching TETRACYCLINE 09/29/2010 8 - GI Upset Comments: Emesis and diarrhea. ATORVASTATIN 05/17/2017 16 - Unknown BACTRIM (SULFAMETHOXAZOLE-TRIMETH*05/17/2017 16 - Unknown Comments: I don't remember. 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 Operator Ultrasonic-In Office Visit [4194] Prescriptions as of 12/10/2017 Sig: AZITHROMYCIN 250 MG TABLET Take 250 mg by mouth once carlos* LEVOFLOXACIN 250 MG TABLET Take 2 tablets by mouth as di* PREDNISONE 20 MG TABLET Take 3 tablets by mouth once * ALBUTEROL SULFATE CONCENTRATE* Inhale 0.5 mL as instructed o* INSULIN ASPART U-100 100 UNI* Inject 15 Units subcutaneousl* INSULIN GLARGINE (U-300) 300 * Take 50 units SQ nightly and * FUROSEMIDE 40 MG TABLET Take 1 tablet by mouth once d* NITROGLYCERIN 0.4 MG SUBLINGU* Dissolve 1 tablet under the t* PANTOPRAZOLE 40 MG TABLET,DEL* TAKE ONE TABLET BY MOUTH ONCE* POTASSIUM CHLORIDE ER 10 MEQ * TAKE ONE TABLET BY MOUTH JANETH* GABAPENTIN 300 MG CAPSULE Take 2 capsules by mouth thre* BUDESONIDE-FORMOTEROL HFA 160* Inhale 2 Puffs as instructed * ALBUTEROL SULFATE HFA 90 MCG/* Inhale 2 Puffs as instructed * TIOTROPIUM BROMIDE 2.5 MCG/AC* Inhale 2 Puffs as instructed * SIMVASTATIN 40 MG TABLET TAKE ONE TABLET BY MOUTH ONCE* OXYGEN (HOME THERAPY) Inhale 2.5 L/min as instructe* ALBUTEROL SULFATE INHALATION Inhale as instructed. IPRATROPIUM BROMIDE 0.02 % SO* Use 0.5 mg via nebulizer four* ISOSORBIDE MONONITRATE ER 30 * Take 1 tablet by mouth twice * APIXABAN 5 MG TABLET Take 1 tablet by mouth twice * Problem List As Of Date 12/10/2017 Noted Resolved HOCM (hypertrophic obstructive cardiomyopathy) * More... SVT (supraventricular tachycardia) [I47.1] More... Carotid artery disease [I77.9] More... CAD (coronary artery disease) [I25.10] HTN (hypertension) [I10] More... Hyperlipidemia [E78.5] More... Pneumonia [J18.9] 10/27/2017 More... COPD (chronic obstructive pulmonary disease) [J* More... Sleep apnea [G47.30] More... HH (hiatus hernia) [K44.9] GERD (gastroesophageal reflux disease) [K21.9] More... Renal insufficiency [N28.9] More... Arthritis [M19.90] Numbness and tingling of right leg [R20.0, R20.* Depression [F32.9] Diabetes [E11.9] Atrial fibrillation [I48.91] INVALID FOR* More... Diabetes mellitus due to underlying condition, *INVALID FOR* More... SUMMARY [V999.95] INVALID FOR* More... Dyspnea [R06.00] INVALID FOR* More... Heart failure, systolic, acute [I50.21] INVALID FOR* More... Obesity [E66.9] INVALID FOR* More... Gout [M10.9] CKD (chronic kidney disease) stage 3, GFR 30-59* Pacemaker [Z95.0] CKD (chronic kidney disease), stage IV (HCC) [N*INVALID FOR* Encounter Status:Closed by REMI KENNEDY on 12/10/17 JONA Observed: 12/09/2017 Status: COMPLETED Source: [place] 12:00 AM [facility] Factyle Telephone (MEO) KEVENLUZ Salvador ([id number]) 1940 F Date Time Provider Department 12/09/17 YANIRA (PHARMACIST)LI During your visit today, we recorded the following information about you: LI DOYLE PHARMACIST 12/10/2017 9:23 AM Addendum Patient's daughter calling to report BGs. Also reports patient was in ER for COPD exacerbation at [facility]. Toujeo 40 or 60 units not always written down on patient's log sheet. Daughter unsure if patient is taking insulins as prescribed. ? SMBG?s: Date Fasting AM 2 hr PP Before Lunch 2 hr PP Before Dinner 2 hr PP Bedtime 12/09 460 282 12/08 412 335 200 12/07 241 323 118 12/06 297 278 266 12/05 276 187 121 12/04 290 259 230 12/03 317 255 190 252 ? Hypoglycemia: no DM - SMBGs not at goal. Unreliable compliance to both basal and prandial insulins. Will attempt to make dosing more standard for patient to remember. Consider switch from Toujeo to Tresiba given unreliable compliance. ? CHANGE Toujeo to 50 units BID ? INCREASE Novolog from 12 to 15 units with each meal ER for COPD - advised patient's daughter to call PCP to notify them of ER visit Phone f/u in one week. Li Doyle, PharmD, [facility] Allergies As of Date: 12/09/2017 Noted Allergy Reaction LATEX 05/17/2017 2 - Rash 9 - Itching Comments: Itching and welts. No wheezing or shortness of breath. PENICILLINS 07/14/2004 2 - Rash 9 - Itching TETRACYCLINE 09/29/2010 8 - GI Upset Comments: Emesis and diarrhea. ATORVASTATIN 05/17/2017 16 - Unknown BACTRIM (SULFAMETHOXAZOLE-TRIMETH*05/17/2017 16 - Unknown Comments: I don't remember. CODEINE 05/17/2017 16 - Unknown DILAUDID (HYDROMORPHONE (BULK)) 05/17/2017 16 - Unknown MEPERIDINE 07/14/2004 PENTAZOCINE 07/14/2004 PIOGLITAZONE 05/17/2017 16 - Unknown PROPOXYPHENE 07/14/2004 Date Reviewed: 11/17/2017 Reviewed by: Seferino Mckeon - Fully Assessed Reason for Visit: Blood Sugar Reading [1269] Visit Diagnosis:Diabetes mellitus due to underlying condition, uncontrolled, with stage 3 chronic kidney disease, with long-term current use of insulin ([facility]) [E08.65, E08.22, N18.3, Z79.4] Order(s):insulin aspart U-100 (NOVOLOG FLEXPEN U-100 INSULIN) 100 unit/mL inpnInject 15 Units subcutaneously three times daily with meals.Disp: Rfl: insulin glargine (TOUJEO SOLOSTAR U-300 INSULIN) 300 unit/mL (1.5 mL) inpnTake 50 units SQ nightly and 50 units SQ in the morning.Disp: Rfl: Prescriptions as of 12/09/2017 Sig: INSULIN ASPART U-100 100 UNI* Inject 15 Units subcutaneousl* INSULIN GLARGINE (U-300) 300 * Take 50 units SQ nightly and * FUROSEMIDE 40 MG TABLET Take 1 tablet by mouth once d* NITROGLYCERIN 0.4 MG SUBLINGU* Dissolve 1 tablet under the t* PANTOPRAZOLE 40 MG TABLET,DEL* TAKE ONE TABLET BY MOUTH ONCE* POTASSIUM CHLORIDE ER 10 MEQ * TAKE ONE TABLET BY MOUTH JANETH* GABAPENTIN 300 MG CAPSULE Take 2 capsules by mouth thre* BUDESONIDE-FORMOTEROL HFA 160* Inhale 2 Puffs as instructed * ALBUTEROL SULFATE HFA 90 MCG/* Inhale 2 Puffs as instructed * TIOTROPIUM BROMIDE 2.5 MCG/AC* Inhale 2 Puffs as instructed * SIMVASTATIN 40 MG TABLET TAKE ONE TABLET BY MOUTH ONCE* OXYGEN (HOME THERAPY) Inhale 2.5 L/min as instructe* ALBUTEROL SULFATE INHALATION Inhale as instructed. IPRATROPIUM BROMIDE 0.02 % SO* Use 0.5 mg via nebulizer four* ISOSORBIDE MONONITRATE ER 30 * Take 1 tablet by mouth twice * APIXABAN 5 MG TABLET Take 1 tablet by mouth twice * Problem List As Of Date 12/09/2017 Noted Resolved HOCM (hypertrophic obstructive cardiomyopathy) * More... SVT (supraventricular tachycardia) [I47.1] More... Carotid artery disease [I77.9] More... CAD (coronary artery disease) [I25.10] HTN (hypertension) [I10] More... Hyperlipidemia [E78.5] More... Pneumonia [J18.9] 10/27/2017 More... COPD (chronic obstructive pulmonary disease) [J* More... Sleep apnea [G47.30] More... HH (hiatus hernia) [K44.9] GERD (gastroesophageal reflux disease) [K21.9] More... Renal insufficiency [N28.9] More... Arthritis [M19.90] Numbness and tingling of right leg [R20.0, R20.* Depression [F32.9] Diabetes [E11.9] Atrial fibrillation [I48.91] INVALID FOR* More... Diabetes mellitus due to underlying condition, *INVALID FOR* More... SUMMARY [V999.95] INVALID FOR* More... Dyspnea [R06.00] INVALID FOR* More... Heart failure, systolic, acute [I50.21] INVALID FOR* More... Obesity [E66.9] INVALID FOR* More... Gout [M10.9] CKD (chronic kidney disease) stage 3, GFR 30-59* Pacemaker [Z95.0] CKD (chronic kidney disease), stage IV (HCC) [N*INVALID FOR* Prescriptions ordered this encounter Disp Refills Start End INSULIN ASPART U-100 100 UNIT/ML FRAZIER* 12/09/2017 Class: Med Update Route: SUBCUTANEOUS Sig: Inject 15 Units subcutaneously three times daily with meals. INSULIN GLARGINE (U-300) 300 UNIT/ML* 12/09/2017 Class: Med Update Sig: Take 50 units SQ nightly and 50 units SQ in the morning. Medications Discontinued During This Encounter insulin aspart (NOVOLOG FLEXPEN) 100* 5 Pen 3 12/02/2017 12/09/2017 Route: SUBCUTANEOUS Sig: Inject 12 Units subcutaneously three times daily with meals. Disc: Reason for discontinue is not on file. insulin glargine (TOUJEO SOLOSTAR) 3* 5 Pen 5 12/06/2017 12/09/2017 Sig: Take 60 units SQ nightly and 40 units SQ in the morning. Disc: Reason for discontinue is not on file. Follow-up and Disposition History Recorded Encounter Status:Closed by YANIRA (PHARMACIST)LI on 12/10/17 12 LEAD ELECTROCARDIOGRAM Observed: 12/08/2017 Status: F Source: [place] 1:36 PM [facility] Cardiovascular Services [address] [place] [address] 12 Lead EKG 12/06/172006 MR#: [id number] Acct: [id number] Name: LUZ RUSH Rep #: [id number] : 1940 77 From: Ayde Butt MD Attending Dr: Status: DEP ER Ordering Dr: Mandy Grajeda MD Date: 12/06/17 Location: ED Sex: F C Admitted: Test Reason : CP Blood Pressure : / mmHG Vent. Rate : 064 BPM Atrial Rate : 063 BPM P-R Int : 000 ms QRS Dur : 194 ms QT Int : 504 ms P-R-T Axes : 000 -78 105 degrees QTc Int : 519 ms Ventricular-paced rhythm Abnormal ECG Confirmed by KEARA COLLIER, AYDE ([id number]), continuity editor JASON ALDANA ([id number]) on 12/08/2017 1:35:48 PM Referred By: UG Confirmed By:AYDE BUTT MD 12/08/17 1335 Date Ayde Butt MD CC: Mook Kamara MD; Mandy Grajeda MD Signed EMERGENCY DEPARTMENT Observed: 12/07/2017 Status: F Source: [place] SUMMARY 1:45 AM [facility] Medical Records Department [address] [place] [address] Emergency Department Summary 12/06/17 2331 MR#: [id number] Acct: [id number] Name: LUZ RUSH Rep #: [id number] : 1940 77 From: Mandy Grajeda MD PCP: Mook Kamara MD Status: DEP ER - ER Visit Summary Date of Service: 12/06/17 Chief Complaint: Cough History of Present Illness: The patient is a 77 F with a history of COPD and CHF. She is on home oxygen at 2-1/2 L. She reports cough with clear sputum and shortness of breath since yesterday. She reports her fever up to 102.5. Patient has been on Levaquin for the past 6 days for UTI. She is currently on renal dosing. She has 2 days left of her Levaquin. Physical Examination: Blood pressure is 139/71, temperature 97.8, heart rate 66, respiratory rate 25, pulse ox 93% on 2 L nasal cannula. Patient sitting upright in bed speaking full sentences. She is in no acute distress. Heart is regular rate and rhythm. Lung sounds are with auditory and expiratory wheezes throughout. She is in no respiratory distress. Abdomen is soft, obese, nontender. Lower extremity examination reveals 1+ bilateral edema that is symmetric. Test Results: EKG is paced at 64 with no acute ischemia. Portable chest x-ray shows cardiomegaly. There is mild pulmonary congestion. CBC reveals normal white count. Lately count is 146,000. Chemistry studies reveal glucose of 254, BUN 35, creatinine 1.87. Emergency Department Course and Treatment: Patient was given a DuoNeb treatment followed by 2 albuterol's. On repeat evaluation she does have improved air movement. There is very minimal wheeze. I am concerned the patient may have influenza with a temperature 102.5 and respiratory symptoms without an infiltrate. I have advised that we are out of the influenza reagent for testing, but if the sample is collected tonight he can be tested tomorrow. Patient received a single dose of Tamiflu now. She requires 30 mg once a day 5 days secondary to her renal function. She is given a prescription for 4 additional days, but will only fill it if they are called with a positive influenza test result. She will also be given a course of Zithromax to cover atypicals as she has been on Levaquin. She will also be given a short course of prednisone. Patient has aerosols at home that she has not been using. She will use these instead of her puffer. She is to return for worsening symptoms. Treatment Plan: [] Disposition: Discharge Impression: 1. COPD exacerbation 2. Influenza This note was generated with [employer]ation software. It may contain incorrect words, spelling, and punctuation that were not noted in review of the chart prior to signing ED Disposition - Plan for ED Patient: Disposition: Home or Assisted Living Chief Complaint: Cough Instructions: ED COPD Flare Prescriptions: Azithromycin [Zithromax] 250 mg PO DAILY #4 tablet Oseltamivir Phosphate [Tamiflu] 30 mg PO DAILY #4 capsule Prednisone [Deltasone] 60 mg PO DAILY #12 tablet Referrals: Mook Kamara MD [Primary Care Provider] - 3-5 Days if not improving What to do if you have Problems For any increased pain, shortness of breath, bleeding, nausea or vomiting, chest pain, or any unexpected problems, contact your Primary Care Provider. Call [facility] ([phone]) or report to the closest Emergency Room. Call 911 if necessary. 12/07/17 0145 <Electronically signed by Mandy Grajeda MD> Date Mandy Grajeda MD Cosigner Signature (If Indicated): Date CC: Mook Kamara MD Observed: 12/06/2017 Status: F Source: [place] INFLUENZA A+B (RAPID 11:35 PM [facility]) REPOSITORY FLU A/B Rapid Negative test results should be confirmed by culture. Order Rapid Viral Culture for Influenzae A+B ([id number]) if clinically indicated. Influenza Ag, Direct Presumptive NEGATIVE for Influenza A/B Antigen (See Note) Performed By: #### M101.0101 #### [facility] Laboratory [address] [place], [address] DISCHARGE INSTRUCTION Observed: 12/06/2017 Status: F Source: [place] 11:34 PM [facility] REPOSITORY [facility] Medical Records Department [address] [place] [address] Discharge Instruction 12/06/17 2332 MR#: [id number] Acct: [id number] Name: ANNEMARIE TRENTLUZ G Rep #: [id number] : 1940 77 From: Mandy Grajeda MD PCP: Mook Kamara MD Status: REG ER ED Disposition - Plan for ED Patient: Disposition: Home or Assisted Living Chief Complaint: Cough Instructions: ED COPD Flare Prescriptions: Azithromycin [Zithromax] 250 mg PO DAILY #4 tablet Oseltamivir Phosphate [Tamiflu] 30 mg PO DAILY #4 capsule Prednisone [Deltasone] 60 mg PO DAILY #12 tablet Referrals: Mook Kamara MD [Primary Care Provider] - 3-5 Days if not improving What to do if you have Problems For any increased pain, shortness of breath, bleeding, nausea or vomiting, chest pain, or any unexpected problems, contact your Primary Care Provider. Call [facility] ([phone]) or report to the closest Emergency Room. Call 911 if necessary. 12/06/17 5446 <Electronically signed by Mandy Grajeda MD> Date Mandy Grajeda MD Cosigner Signature (If Indicated): Date CC: Mook Kamara MD Observed: 12/06/2017 Status: F Source: [place] CULTURE, BLOOD (WB) 11:05 PM [facility] REPOSITORY BC No growth in 5 days. Performed By: #### M200.1000 #### [facility] [address] [place], [place] [address]. [place], [address] CBC W/DIFF, AUTOMATED Collected: 12/06/2017 Status: F Source: [place] 10:35 PM [facility] REPOSITORY TYPE CODE TESTS RESULT OUT OF RANGE REFERENCE UNITS LAB L100.1000 4.4-11.0 K/mm3 Normal WBC 9.4 LAB L100.1200 4.2-5.4 M/mm3 Normal RBC 4.45 LAB L100.1300 12.0-15.0 g/dl Normal HGB 13.1 LAB L100.1400 37-47 % Normal HCT 41.7 LAB L100.1500 81-99 fL Normal MCV 93.7 LAB L100.1600 27.0-32.0 pg Normal MCH 29.4 LAB L100.1700 32-36 g/gl Low MCHC 31.4 LAB L100.1810 11.6-14.6 % High RDW CV 16.8 LAB L100.1820 35.1-43.9 fl High RDW SD 56.8 LAB L100.1900 150-450 K/mm3 Low PLT 146 LAB L100.2000 6.2-12.0 fl Normal MPV 9.8 LAB L100.2100 47-70 % Normal NEUT% 63.1 LAB L100.2200 19-41 % Normal LY% 25.8 LAB L100.2300 0-10 % Normal MONO% 8.7 LAB L100.2400 0-5 % Normal EO% 1.9 LAB L100.2500 0-1 % Normal BASO% 0.2 LAB L100.2550 0.0-0.9 % Normal IM GRAN % 0.300 Result Comment: IG% - Immature Granulocytes (promyelocytes, myelocytes and metamyelocytes) > 1% indicates that a LEFT SHIFT is Present. LAB L100.2620 2.0-7.7 X10 3/uL Normal Absolute Neut 5.9 LAB L100.2720 0.83-4.51 X10 3/ul Normal Absolute Lymph 2.43 Performed By: #### L100.0100 #### [facility] [address] [place], [address] BASIC METABOLIC Collected: 12/06/2017 Status: F Source: [place] PROFILE ([facility]) 10:35 PM [facility] REPOSITORY TYPE CODE TESTS RESULT OUT OF RANGE REFERENCE UNITS LAB L501.0100 74-106 mg/dL High GLU 254 Result Comment: Glucose result greater than or equal to 200 mg/dL suggests DIABETES MELLITUS per A.D.A. criteria. Please note revised GLUCOSE reference range effective 2017. LAB L501.1000 7-18 mg/dL High BUN 35 LAB L501.1100 0.55-1.02 mg/dL High CREAT,SERUM 1.87 Result Comment: The validity of the calculated GFR AND GFRAA in patients over 70 years has not been determined. Clinical correlation is essential. LAB L501.1110 >60 mL/min Low EST GFR 28 Result Comment: Non- GFR Calc LAB L501.1115 >60 mL/min Low EST GFR - AA 34 Result Comment: GFR Calc LAB L501.1255 ml/min Normal Estimated CRCL 25.82 LAB L501.1300 10-20 RATIO Normal BUN/CRE 18.7 LAB L501.2200 8.5-10 mg/dL Normal .1 CA 8.8 LAB L501.5300 136-14 mmol/L Normal 5 NA 140 LAB L501.5600 3.5-5. mmol/L Normal 1 K 4.2 LAB L501.5900 98-107 mmol/L Normal CL 103 LAB L501.6100 21.0-3 mmol/L Normal 2.0 CO2 32.0 LAB L501.6200 5-15 Normal GAP 5 Performed By: #### L500.2500 #### [facility] [address] [place], [address] Observed: 12/06/2017 Status: F Source: [place] CULTURE, BLOOD (WB) 10:35 PM [facility] REPOSITORY BC No growth in 5 days. Performed By: #### M200.1000 #### [facility] [address] [place], [address] CHEST PA AND LATERAL Observed: 12/06/2017 Status: F Source: [place] 10:02 PM [facility] REPOSITORY [facility] Imaging Services [address] [place] [address] Chest PA and Lateral MR#: [id number] Acct: [id number] Name: LUZ RUSH Rep #: [id number] : 1940 F 77 From: Vu Saha MD PCP: Mook Kamara MD Status: REG ER Study: Chest PA and Lateral Date of Exam: 12/06/17 Exam# [id number] Ordering Dr: Mandy Grajeda MD STUDY: X-RAY CHEST REASON FOR EXAM: Female, 77 years old. Cough TECHNIQUE: Frontal view of the chest COMPARISON: None. FINDINGS: There are mild congestive changes noted. The lungs are otherwise clear. There are no pleural effusions. There is no pneumothorax. The heart is enlarged. There is a pacemaker in place. The patient is status post sternotomy. RAD/Chest PA and Lateral IMPRESSION: Cardiomegaly with mild pulmonary vascular congestion. Electronically Signed: Vu Saha, at 23:01 EST Tel , Service support , CC: Mook Kamara MD; Mandy Grajeda MD Service Delivery Supervisor: Signed PROGRESS Observed: 12/02/2017 Status: COMPLETED Source: [place] 12:30 PM [facility] REPOSITORY HNO ID: [id number] Author: Li Doyle (Pharmacist) Service: (none) Author Type: Pharmacist Type: Progress Notes Filed: 12/02/2017 4:17 PM Note Text: Patient consents to pharmacy collaborative practice agreement. REASON FOR CONSULT: DM GOALS: A1c < 8% CONSULTING PROVIDER: Dr. Kamara Date of Consult: 10/2017 Luz Baca is a 77 year old female was last seen in [facility] by PCP, Dr. Jameson Kamara MD on 10/27/17. Patient is presenting today for initial pharmacotherapy management appointment for DM. At last PCP visit insulin glargine (Toujeo) was increased to 40-0-60-0 (from 36-0-60-0) and insulin aspart was increased to 8 units TID meals. Patient presents with daughter today. INTERIM HISTORY: Per patient's daughter and outside records: nephrology discontinued spironolactone and amlodipine; and decreased furosemide from 60mg daily to 40mg daily (will update in EPIC) Has new glucometer, did not bring to visit Checks FBG and before meals Reports BGs 209, 310, 316, 340 Mostly between 200 - 350 Also asking for refill of nitroglycerin PRN Current DM Medications: Insulin glargine 40-0-60-0 Insulin aspart 8 units TID meals plus sliding scale (reports taking just the sliding scale 2, 4, 6 units, etc and NOT adding it to the 8 units) Current HTN Medications: Furosemide 40mg once daily Preventative Medications: ? On DAMION/ARB: No ? On Statin: Yes ? On ASA: No - bleeding, patient self-discontinued ? Reports having had nosebleeds, hematuria when she was taking it, did not notify anyone, since stopping aspirin bleeding stopped -- still taking apixaban ROS: ? Patient denies CP, SOB, BAUER, blurred vision, dizziness or lightheadedness ? Patient denies symptoms of hypoglycemia (sweating, anxiety, palpitations, hunger, and tremor) ? Patient denies symptoms of hyperglycemia (polyuria, polydipsia, polyphagia) ? Patient denies potential medication adverse effects DIET/EXERCISE/SOCIAL Hx: Cut down on fruit juice ? Breakfast: egg sandwich ? Lunch/dinner: 3-4pm sloppy chicken ? Snacks: ice cream or popsicle ? Following Na restrictions: no ? Beverages: coffee and water ? Exercise: no ? Tobacco: quit ? Alcohol: denies ? Illicits: denies MEDICATIONS: ? Pill bottles are present. ? Adherence: denies missed doses (noncompliance with insulin lispro) ? Pharmacy: [facility] ? Rx coverage: [employer] ? Affordability: no issues ? Diabetes supplies: ? Organization System: none ACTIVE PROBLEM LIST Hocm (Hypertrophic Obstructive Cardiomyopathy) ([facility]) Svt (Supraventricular Tachycardia) ([facility]) Carotid Artery Disease ([facility]) Cad (Coronary Artery Disease) Htn (Hypertension) Hyperlipidemia Copd (Chronic Obstructive Pulmonary Disease) ([facility]) Sleep Apnea Hh (Hiatus Hernia) Gerd (Gastroesophageal Reflux Disease) Renal Insufficiency Arthritis Numbness and Tingling of Right Leg Depression Diabetes (Hcc) Atrial Fibrillation ([facility]) Diabetes Mellitus Due to Underlying Condition, Uncontrolled, With Stage 3 Chronic Kidney Disease, With Long-Term Current Use of Insulin ([facility]) Summary Dyspnea Heart Failure, Systolic, Acute (Hcc) Obesity Gout Ckd (Chronic Kidney Disease) Stage 3, Gfr 30-59 Ml/Min Pacemaker Ckd (Chronic Kidney Disease), Stage IV ([facility]) PAST MEDICAL HISTORY Diagnosis Date - Arthritis - Atrial fibrillation (HCC) - CAD (coronary artery disease) stents x9, defibrillator, CABG. Seeing Dr. Cardona - Cardiac defibrillator in place - Cardiomegaly - Carotid artery disease (HCC) left - CKD (chronic kidney disease), stage IV (HCC) - COPD (chronic obstructive pulmonary disease) ([facility]) Dr. Cruz - Depression - Diabetes ([facility]) - Diabetic neuropathy ([facility]) - GERD (gastroesophageal reflux disease) - Gout - HH (hiatus hernia) - HOCM (hypertrophic obstructive cardiomyopathy) ([facility]) - HTN (hypertension) - Hyperlipidemia - Morbid obesity with BMI of 40.0-44.9, adult ([facility]) - Pacemaker - Pneumonia h/o pneumonia/bronchitis - Renal insufficiency 2003 post op - Sleep apnea 2011 not on CPAP, unable to tolerate mask 02/2017 - SVT (supraventricular tachycardia) ([facility]) NSVT and questionable VT in 2003 post op ALLERGIES Allergen Reactions - Latex Rash, Itching Itching and welts. No wheezing or shortness of breath. - Penicillins Rash, Itching - Tetracycline GI Upset Emesis and diarrhea. - Atorvastatin Unknown - Bactrim [Sulfametho* Unknown I don't remember. - Codeine Unknown - Dilaudid [Hydromorp* Unknown - Meperidine - Pentazocine - Pioglitazone Unknown - Propoxyphene Current Outpatient Prescriptions: pantoprazole DR (PROTONIX) 40 mg tablet TAKE ONE TABLET BY MOUTH ONCE DAILY potassium chloride ER (K-DUR, KLOR-CON) 10 mEq tablet TAKE ONE TABLET BY MOUTH DAILY WITH BREAKFAST furosemide (LASIX) 40 mg tablet 60 mg in the AM and 40 mg after lunch reports 40mg once daily per Nephrology spironolactone (ALDACTONE) 25 mg tablet Take 1 tablet by mouth twice daily. reports d/c -ed by Nephrology aspirin, enteric coated (ADULT LOW DOSE ASPIRIN) 81 mg EC tablet Take 1 tablet by mouth once daily. patient self d/c-ed insulin aspart (NOVOLOG FLEXPEN) 100 unit/mL inpn Take 8 units subcutaneously TID with meals noncompliant insulin aspart (NOVOLOG FLEXPEN) 100 unit/mL inpn SLIDING SCALE: 151-200 2 units, 201-250 4 units, 251-300 6 units, 301-350 8 units, 351-400 10 units, over 400 12 units colchicine 0.6 mg tablet Take two tablets in morning and one tablet one hour later. Repeat this process for a total of 5 days. reports was d/c -ed gabapentin (NEURONTIN) 300 mg capsule Take 2 capsules by mouth three times daily for 30 days. budesonide-formoterol (SYMBICORT) 160-4.5 mcg/actuation inhaler Inhale 2 Puffs as instructed twice daily. insulin glargine (TOUJEO SOLOSTAR) 300 unit/mL (1.5 mL) inpn Take 60 units SQ nightly and 40 units SQ in the morning. albuterol HFA (VENTOLIN HFA) 90 mcg/actuation inhaler Inhale 2 Puffs as instructed every 4 hours as needed. tiotropium bromide (SPIRIVA RESPIMAT) 2.5 mcg/actuation mist Inhale 2 Puffs as instructed once daily. simvastatin (ZOCOR) 40 mg tablet TAKE ONE TABLET BY MOUTH ONCE DAILY AT BEDTIME OXYGEN, HOME THERAPY, Inhale 2.5 L/min as instructed as directed. amLODIPine (NORVASC) 2.5 mg tablet Take 1 tablet by mouth once daily. ALBUTEROL SULFATE INHALATION Inhale as instructed. ipratropium (ATROVENT) 0.02 % nebulizer solution Use 0.5 mg via nebulizer four times daily. nitroglycerin sublingual (NITROQUICK) 0.4 mg SL tablet Dissolve 0.4 mg under the tongue every 5 minutes as needed. isosorbide mononitrate ER (IMDUR) 30 mg 24 hr tablet Take 1 tablet by mouth twice daily. apixaban (ELIQUIS) 5 mg tab tab(s) Take 1 tablet by mouth twice daily. reports dose decreased to 2.5mg BID per Cardiology No current facility-administered medications for this visit. Rx meds not listed in EPIC: none OTCs: none Herbals: none GLYCEMIC CONTROL: ? Glucometer present at visit: No ? Hypoglycemia: denies Last 3 Encounter BP Readings: Date: BP: 11/17/2017 126/86 11/12/2017 138/84 10/27/2017 110/78 Wt: 101.2 kg (223 lb) BMI: 33.91 kg/(m2) LABS Lab Results Component Value Date HBA1C 16.1 10/27/2017 HBA1C 10.0 05/17/2017 HBA1C 8.4 2010 CMP: Glucose 319 10/28/2017 BUN 37 10/28/2017 Creatinine 2.05 10/28/2017 Sodium 137 10/28/2017 Potassium 4.6 10/28/2017 Chloride 93 10/28/2017 CO2 Content, Venous 26 10/28/2017 Protein, Total 7.9 10/28/2017 Albumin 3.5 10/28/2017 Calcium 9.8 10/28/2017 Alkaline Phosphatase 94 10/28/2017 Bilirubin, Total 0.6 10/28/2017 AST 18 10/28/2017 ALT 11 10/28/2017 GFR 24 Estimated Creatinine Clearance: 29 mL/min (based on Cr of 2.05). Last Lipid Panel Lab Results Component Value Date CHOL 145 05/17/2017 Lab Results Component Value Date HDL 34 05/17/2017 Lab Results Component Value Date LDL 84 05/17/2017 Lab Results Component Value Date TG 137 05/17/2017 Albumin/Creat Ratio (mg/g) Date Value 05/17/2017 39 (H) PHARMACOTHERAPY ASSESSMENT/PLAN: 1. 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 FBGs not at goal. Patient reports compliant with basal insulin but not with prandial insulin (taking less than prescribed dose) and tolerating current regimen. Will d/c sliding scale at this time to assist with compliance to prandial insulin. Will increase base dose of prandial insulin, and adjust as necessary. At this time will avoid further increases in basal insulin as doses > 100 units daily unlikely to yield much benefit. Would avoid other DM therapies at this time given poor renal function. Renal fxn reduced but stable and LFTs WNL and appropriate for continued therapy ? INCREASE insulin aspart to 12 units TID meals (d/c sliding scale) ? CONTINUE insulin glargine (Toujeo) 100 units daily (40 units morning, 60 units evening) ? Instructed patient to check FBGs and PPBGs and call PharmD in one week with update 2. Essential hypertension - ICD9: 401.9, ICD10: I10 BP goal < 140/90, pt is at goal on current therapy. Patient compliant with and tolerating current regimen. Cardiology is considering DAMION inhibitor, which would be beneficial given albuminuria. Patient also follows with Nephrology. Will continue current regimen at this time. Renal fxn reduced but stable and K+ WNL and appropriate for continued therapy. ? CONTINUE furosemide 40mg once daily 3. Hyperlipidemia, unspecified hyperlipidemia type - ICD9: 272.4, ICD10: E78.5 Pt is on moderate statin intensity (inidicated for high intensity d/t clinical ASCVD). Patient compliant with and tolerating current regimen. Did not discuss this visit, will discuss next PharmD visit, continue for now. LFTs WNL and renal fxn reduced but stable and appropriate for continued therapy ? CONTINUE simvastatin 40mg once daily 4. Medication management - ICD9: V58.69, ICD10: Z79.899 Patient with some confusion re: her medicines. Is able to manage them all with the help of daughter. ? HTN - reports different doses than per EPIC record, confirmed by Nephrology documents from outside facility ? A.fib - reports taking less than prescribed dose of apixaban, PharmD will discuss with Cardiology ? Dosing for apixaban: Serum creatinine =1.5 mg/dL and either =80 years of age or body weight =60 k.5 mg twice daily. ? Note: Patients with a serum creatinine >2.5 mg/dL or CrCl <25 mL/minute were excluded from clinical trials Health Maintenance issues addressed: ADULT PREVNAR-13 due on 2006 PNEUMOVAX AGE 65 AND OVER WITH 5YR LOOKBACK(1) due on 2006 Patient is scheduled to see PCP 01/26/18. Cardiology 01/18/18 Patient to return to clinic for PharmD f/u on 12/28/17. Patient verbalized understanding of instructions. Li Doyle PharmD, [facility] CNPN Observed: 12/02/2017 Status: COMPLETED Source: [place] 12:00 AM [facility] REPOSITORY Telephone (PHMEWO) LUZ BACA ([id number]) 1940 F Date Time Provider Department 12/02/17 YANIRA (PHARMACIST), LI HICKEY During your visit today, we recorded the following information about you: CHRISTINA VNISON 12/02/2017 4:[address] Cardona, [facility] saw patient today for DM management. Patient reports stopping her aspirin due to having gum bleeding and hematuria when she was taking it. Patient denies notifying anyone about the bleeding, just that she stopped her aspirin and the bleeding resolved. She also reports taking less than prescribed dose of Eliquis (2.5mg BID instead of 5mg BID). I saw in your note you were considering decreasing the dose of Eliquis in the future, but the patient reports that she self-decreased the dose. Thank you and let me know if you require any further information. Li Doyle, PharmD, [facility] [phone] Aren Cardona MD 12/02/2017 4:56 PM Signed Thanks for the update. 2.5 milligrams twice daily is probably a more appropriate dose for her anyway given her renal function. If she has not tried aspirin in a while, I would encourage her to try 81 milligrams 2 or 3 times a week to see if she tolerates this. MD Timi Philip, RN, RN 12/03/2017 11:55 AM Signed The bleeding and discontinuing the ASA was just last week. They are not interested in restarting. Aren Cardona MD 12/03/2017 12:16 PM Signed Noted. Aren Cardona MD Allergies As of Date: 12/02/2017 Noted Allergy Reaction LATEX 05/17/2017 2 - Rash 9 - Itching Comments: Itching and welts. No wheezing or shortness of breath. PENICILLINS 07/14/2004 2 - Rash 9 - Itching TETRACYCLINE 09/29/2010 8 - GI Upset Comments: Emesis and diarrhea. ATORVASTATIN 05/17/2017 16 - Unknown BACTRIM (SULFAMETHOXAZOLE-TRIMETH*05/17/2017 16 - Unknown Comments: I don't remember. CODEINE 05/17/2017 16 - Unknown DILAUDID (HYDROMORPHONE (BULK)) 05/17/2017 16 - Unknown MEPERIDINE 07/14/2004 PENTAZOCINE 07/14/2004 PIOGLITAZONE 05/17/2017 16 - Unknown PROPOXYPHENE 07/14/2004 Date Reviewed: 11/17/2017 Reviewed by: Seferino Mckeon - Fully Assessed Reason for Visit: Medication Problem [65] Cmt: Eliquis and aspirin Prescriptions as of 12/02/2017 Sig: INSULIN ASPART 100 UNIT/ML FRAZIER* Inject 12 Units subcutaneousl* FUROSEMIDE 40 MG TABLET Take 1 tablet by mouth once d* NITROGLYCERIN 0.4 MG SUBLINGU* Dissolve 1 tablet under the t* PANTOPRAZOLE 40 MG TABLET,DEL* TAKE ONE TABLET BY MOUTH ONCE* POTASSIUM CHLORIDE ER 10 MEQ * TAKE ONE TABLET BY MOUTH JANETH* GABAPENTIN 300 MG CAPSULE Take 2 capsules by mouth thre* BUDESONIDE-FORMOTEROL HFA 160* Inhale 2 Puffs as instructed * INSULIN GLARGINE 300 UNIT/ML * Take 60 units SQ nightly and * ALBUTEROL SULFATE HFA 90 MCG/* Inhale 2 Puffs as instructed * TIOTROPIUM BROMIDE 2.5 MCG/AC* Inhale 2 Puffs as instructed * SIMVASTATIN 40 MG TABLET TAKE ONE TABLET BY MOUTH ONCE* OXYGEN (HOME THERAPY) Inhale 2.5 L/min as instructe* ALBUTEROL SULFATE INHALATION Inhale as instructed. IPRATROPIUM BROMIDE 0.02 % SO* Use 0.5 mg via nebulizer four* ISOSORBIDE MONONITRATE ER 30 * Take 1 tablet by mouth twice * APIXABAN 5 MG TABLET Take 1 tablet by mouth twice * Problem List As Of Date 12/02/2017 Noted Resolved HOCM (hypertrophic obstructive cardiomyopathy) * More... SVT (supraventricular tachycardia) [I47.1] More... Carotid artery disease [I77.9] More... CAD (coronary artery disease) [I25.10] HTN (hypertension) [I10] More... Hyperlipidemia [E78.5] More... Pneumonia [J18.9] 10/27/2017 More... COPD (chronic obstructive pulmonary disease) [J* More... Sleep apnea [G47.30] More... HH (hiatus hernia) [K44.9] GERD (gastroesophageal reflux disease) [K21.9] More... Renal insufficiency [N28.9] More... Arthritis [M19.90] Numbness and tingling of right leg [R20.0, R20.* Depression [F32.9] Diabetes [E11.9] Atrial fibrillation [I48.91] INVALID FOR* More... Diabetes mellitus due to underlying condition, *INVALID FOR* More... SUMMARY [V999.95] INVALID FOR* More... Dyspnea [R06.00] INVALID FOR* More... Heart failure, systolic, acute [I50.21] INVALID FOR* More... Obesity [E66.9] INVALID FOR* More... Gout [M10.9] CKD (chronic kidney disease) stage 3, GFR 30-59* Pacemaker [Z95.0] CKD (chronic kidney disease), stage IV (HCC) [N*INVALID FOR* Encounter Status:Closed by YANIRA (PHARMACIST)LI on 12/02/17 HAYLEY Observed: 11/17/2017 Status: COMPLETED Source: [place] 2:30 PM [facility] REPOSITORY Office Visit (AGCARDWST) LUZ BACA ([id number]) 1940 F Date Time Provider Department 11/17/17 2:30 PM AREN CARDONA During your visit today, we recorded the following information about you: Pulse Blood pressure Weight Height 64/minute 126/86 101.2 kg 1.727 m Aren Cardona MD 11/17/2017 5:32 PM Signed PERTINENT CARDIAC HISTORY ASHD - CABGx3 2003, PCIx6 RCA 2013, PCIx3 2014 HCM - septal myectomy 2003 HTN DM HL MARLA - unable to tolerate CPAP PAF CRF CHF - systolic, DAMION-I/ARB intolerance (CRF) Cardiomyopathy - ischemic, ICD 2015, revised 11/2016, beta lenny intolerance ADHERENCE TO GUIDELINES DAMION-I or ARB for HF with prior LVEFANDlt;40 (NQF 0081) - CRF ASA or Plavix for ASHD (NQF 0067) - restart Beta lenny for ASHD with prior NE or prior LVEFANDlt;40 (NQF 0070) - COPD Beta lenny for HF with prior LVEFANDlt;40 (NQ 0083) - COPD DAMION-I or ARB for ASHD with DM or prior LVEFANDlt;40 (NQF 0066) - CRF Statin therapy for ASHD or FHL or DM - met BMI documented and plan if ANDgt;25 (NQ 0421) - lifestyle recommendation form Tobacco use screening and referral (NQ 0028) - lifestyle recommendation form Recommendation for whole food, plant based diet - lifestyle recommendation form CLINICAL IMPRESSION/PLAN: Luz Baca has evidence of decompensated systolic heart failure. She would benefit from an increase in her diuretic. More aggressive treatment for her cardiomyopathy is also indicated. Her device therapy consists of a single ventricular lead and she is largely paced. We cannot assess her atrial fibrillation. She has no atrial lead. 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 Her LV function by echo is in the 30% range. Stress test estimated 50%, but may have been compromised by her rhythm. She may also benefit from the addition of carvedilol and DAMION inhibitor, although her renal function is labile. For the time being, she will increase Lasix to 60 milligrams in the morning and 40 in the afternoon and Aldactone to 25 milligrams twice daily. She will have basic profile done in one week. Once her heart failure is more stable and renal function is documented to be stable, we will consider addition of an DAMION inhibitor. Her renal function is nearing the time when we will likely need to decrease her dose of Eliquis. Presently, she is tolerating well without evidence of abnormal bleeding. She has significant obstructive coronary disease with multiple stents. I have asked her to restart aspirin 81 milligrams daily and let me know promptly should she have any excess bleeding or bruising. We will consider discontinuing Norvasc, in the face of LV dysfunction. She is having some episodic chest discomfort, which may be related to pulmonary venous hypertension. Prior to discontinuing Norvasc, we will reassess her chest pain frequency. I will see her in 2 months or as needed. Written and verbal health teaching given to patient, patient verbalizes understanding and agrees with treatment plan. This note was generated using Psonar voice recognition system, and there may be some incorrect words, spellings, and punctuation that were not noted in checking the note before saving. DIAGNOSIS FOR VISIT: CHF ASHD HISTORY OF PRESENT ILLNESS Luz Baca returns for problem follow-up visit. She has been noticing more shortness of breath recently. Laboratory studies show elevation of BNP. She was felt to have decompensated heart failure. She has noted intermittent soreness in the chest which is worse when taking a deep breath. She has used occasional nitroglycerin with partial relief. She has had no exertional chest tightness but is more short of breath with activity. She's noted mild edema. She's had no syncope. She has occasional sensation of an irregular heart rhythm, lasting up to 30 seconds. She has had no TIAs, amaurosis or claudication. Since her most recent visit, she underwent pharmacologic stress test which showed mild depression of LV function but no evidence of ischemia. ALLERGIES: ALLERGIES Allergen Reactions - Latex Rash, Itching Itching and welts. No wheezing or shortness of breath. - Penicillins Rash, Itching - Tetracycline GI Upset Emesis and diarrhea. - Atorvastatin Unknown - Bactrim [Sulfametho* Unknown ANDquot;I don't remember.ANDquot; - Codeine Unknown - Dilaudid [Hydromorp* Unknown - Meperidine - Pentazocine - Pioglitazone Unknown - Propoxyphene CURRENT OUTPATIENT MEDICATIONS: insulin aspart (NOVOLOG FLEXPEN) 100 unit/mL inpn Take 8 units subcutaneously TID with meals insulin aspart (NOVOLOG FLEXPEN) 100 unit/mL inpn SLIDING SCALE: 151-200 2 units, 201-250 4 units, 251-300 6 units, 301-350 8 units, 351-400 10 units, over 400 12 units gabapentin (NEURONTIN) 300 mg capsule Take 2 capsules by mouth three times daily for 30 days. budesonide-formoterol (SYMBICORT) 160-4.5 mcg/actuation inhaler Inhale 2 Puffs as instructed twice daily. insulin glargine (TOUJEO SOLOSTAR) 300 unit/mL (1.5 mL) inpn Take 60 units SQ nightly and 40 units SQ in the morning. albuterol HFA (VENTOLIN HFA) 90 mcg/actuation inhaler Inhale 2 Puffs as instructed every 4 hours as needed. tiotropium bromide (SPIRIVA RESPIMAT) 2.5 mcg/actuation mist Inhale 2 Puffs as instructed once daily. simvastatin (ZOCOR) 40 mg tablet TAKE ONE TABLET BY MOUTH ONCE DAILY AT BEDTIME furosemide (LASIX) 40 mg tablet TAKE 1 AND 1/2 TABLETS BY MOUTH ONCE DAILY spironolactone (ALDACTONE) 25 mg tablet TAKE ONE TABLET BY MOUTH ONCE DAILY pantoprazole DR (PROTONIX) 40 mg tablet TAKE ONE TABLET BY MOUTH ONCE DAILY potassium chloride ER (K-DUR, KLOR-CON) 10 mEq tablet TAKE ONE TABLET BY MOUTH DAILY WITH BREAKFAST OXYGEN, HOME THERAPY, Inhale 2.5 L/min as instructed as directed. amLODIPine (NORVASC) 2.5 mg tablet Take 1 tablet by mouth once daily. ALBUTEROL SULFATE INHALATION Inhale as instructed. ipratropium (ATROVENT) 0.02 % nebulizer solution Use 0.5 mg via nebulizer four times daily. nitroglycerin sublingual (NITROQUICK) 0.4 mg SL tablet Dissolve 0.4 mg under the tongue every 5 minutes as needed. isosorbide mononitrate ER (IMDUR) 30 mg 24 hr tablet Take 1 tablet by mouth twice daily. apixaban (ELIQUIS) 5 mg tab tab(s) Take 1 tablet by mouth twice daily. colchicine 0.6 mg tablet Take two tablets in morning and one tablet one hour later. Repeat this process for a total of 5 days. PAST MEDICAL HISTORY Diagnosis Date - Arthritis - Atrial fibrillation (HCC) - CAD (coronary artery disease) stents x9, defibrillator, CABG. Seeing Dr. Cardona - Cardiac defibrillator in place - Cardiomegaly - Carotid artery disease (HCC) left - CKD (chronic kidney disease), stage IV ([facility]) - COPD (chronic obstructive pulmonary disease) ([facility]) Dr. Cruz - Depression - Diabetes ([facility]) - Diabetic neuropathy ([facility]) - GERD (gastroesophageal reflux disease) - Gout - HH (hiatus hernia) - HOCM (hypertrophic obstructive cardiomyopathy) ([facility]) - HTN (hypertension) - Hyperlipidemia - Morbid obesity with BMI of 40.0-44.9, adult ([facility]) - Pacemaker - Pneumonia h/o pneumonia/bronchitis - Renal insufficiency 2003 post op - Sleep apnea 2011 not on CPAP, unable to tolerate mask 02/2017 - SVT (supraventricular tachycardia) ([facility]) NSVT and questionable VT in 2003 post op PAST SURGICAL HISTORY Procedure Laterality Date - PAST SURGICAL HISTORY OF 07/18/2004 Septal myectomy and CABG x2 (DEBORAH-LAD, SVG-PDA). - PAST SURGICAL HISTORY OF left breast nodule removed - PAST SURGICAL HISTORY OF hysterectomy - PAST SURGICAL HISTORY OF perianal abscess drained - PAST SURGICAL HISTORY OF cholecystectomy - PAST SURGICAL HISTORY OF skin lesions removed FAMILY HISTORY Problem Relation Age of Onset - Hypertension Mother living at age 93, HTN - Heart Failure Mother [place] - Cancer Father age 71, lung cancer Social History Marital status: Spouse name: Years of education: Number of children: Social History Main Topics Smoking status: Former Smoker Packs/day: 2.50 Years: 43.00 Types: Cigarettes Start date: 1961 Quit date: 07/07/2004 Smokeless status: Never Used Alcohol use: No Drug use: No Other Topics Concern Caffeine Concern Yes Comment:coffee 1 cup daily Special Diet No Comment:Regular Exercise No Comment:no unable, due to SOB x several months. REVIEW OF SYSTEMS: General: No chills, fever, weight loss, night sweats. Respiratory: No productive cough. Cardiac: As noted above. GI: No melena. : No dysuria. Musculoskeletal: No myalgias. PHYSICAL EXAMINATION: S/he is alert and in no distress. VITAL SIGNS: BP 126/86 Pulse 64 Ht 5' 8ANDquot; (1.73m) Wt 223 lb (101.2kg) BMI 33.91 kg/(m2). SHEENT: Skin is warm and dry. No xanthelasmas appreciated. Pharynx is benign. There is no oral cyanosis. Neck: supple. No adenopathy or thyroid enlargement. Chest: There are scattered rales and rhonchi. There is mild expiratory prolongation. Trachea is midline. Air entry is equal. There is no chest wall tenderness. Cardiac: Regular rhythm. S1 and S2 are normal. PMI is nondisplaced. There is a soft systolic ejection murmur. No click is heard. Carotids are brisk without bruits. JVP is less than 10 cm. Abdomen: Soft and nontender. Obesity precludes adequate examination. There are no pulsatile masses or bruits. No liver enlargement. Bowel sounds are active. Extremities: 1 plus chronic, brawny, nonpitting edema. Pulses are diminished in the lower extremities, without evidence of ischemia. No clubbing or cyanosis. No femoral bruits. Neurologic: Grossly normal motor and sensory. S/he is alert and oriented x4. Recent chest x-ray showed marked cardiomegaly without PVR. There is a small effusion. Stress test showed no evidence of ischemia. Renal function is impaired with GFR 24. BNP was 1513. Electronically Signed: Aren Cardona MD November 17, 2017 1:16 PM CC:MD Aren Samuels MD 11/17/2017 1:18 PM Signed Restart aspirin 81 mg daily Increase lasix to 60 mg in the AM and 40 mg in the PM Increase aldactone to 25 mg twice a day Have blood work done in one week Weigh every day. LIFESTYLE CHANGE A healthy lifestyle is the most important component of your overall treatment plan. Please give serious thought to the following areas and commit to making shelter changes. EAT A WHOLE FOOD, PLANT BASED DIET The nutrition your body gets is more important than the medicine you take. What matters most is the overall way you eat. We encourage you to minimize the use of animal products (which include dairy and all meats except fatty fish) and use whole, unprocessed plant foods to provide your protein, vitamins and other nutrients. We have a lot of information to share with you on this topic. We also hold Shared Medical Appointments, where you can come visit with Dr. Cardona in the company of other patients and spend over an hour talking about the challenges of changing the way you eat. This is not a ANDquot;dietANDquot;. It is a way of life that you will keep with you. EXERCISE REGULARLY It is not important to spend hours in the gym, lifting weights and perspiring heavily. A total of 2-3 hours per week of aerobic (causing you to be moderately short of breath) exercise is sufficient to improve your health. Talk to us before you begin a new exercise program, if you have heart disease or experience shortness of breath or chest pain. REDUCE STRESS Chronic emotional and physical stress leads to disease. Ways of reducing stress include meditation, visualization, prayer, yoga and other forms of relaxation therapy. Consistency is the aguilera. Find a technique that works for you and do it every day. CULTIVATE RELATIONSHIPS Loneliness and isolation have a major negative impact on health. Seek out others who can love, care for and nurture you. Avoid hurtful relationships. MAINTAIN IDEAL BODY WEIGHT The best way to do this is to do all the things above. Our bodies naturally find the right weight if we keep moving and feed ourselves the right food. If your BMI is greater than 25, we strongly recommend a referral to a weight management program. Please speak to us or your family physician about available programs. AVOID NICOTINE IN ALL FORMS This includes all tobacco products, whether chewed, smoked, vaped, or rubbed on the skin. Smoking cessation programs, which can make use of tobacco substitutes, medications to suppress cravings and behavior management, are available. Please contact your family physician about programs in your area. Referring Provider: AREN CARDONA [[id number]] Allergies As of Date: 11/17/2017 Noted Allergy Reaction LATEX 05/17/2017 2 - Rash 9 - Itching Comments: Itching and welts. No wheezing or shortness of breath. PENICILLINS 07/14/2004 2 - Rash 9 - Itching TETRACYCLINE 09/29/2010 8 - GI Upset Comments: Emesis and diarrhea. ATORVASTATIN 05/17/2017 16 - Unknown BACTRIM (SULFAMETHOXAZOLE-TRIMETH*05/17/2017 16 - Unknown Comments: I don't remember. CODEINE 05/17/2017 16 - Unknown DILAUDID (HYDROMORPHONE (BULK)) 05/17/2017 16 - Unknown MEPERIDINE 07/14/2004 PENTAZOCINE 07/14/2004 PIOGLITAZONE 05/17/2017 16 - Unknown PROPOXYPHENE 07/14/2004 Date Reviewed: 11/17/2017 Reviewed by: Seferino Mckeon - Fully Assessed Reason for Visit: Follow Up [171] Primary Visit Diagnosis:Cardiomyopathy, ischemic [I25.5] Other Visit Diagnoses:Atrial fibrillation, chronic (HCC) [I48.2] LBBB (left bundle branch block) [I44.7] Order(s):furosemide (LASIX) 40 mg [id number] mg in the AM and 40 mg after lunchDisp: Rfl: spironolactone (ALDACTONE) 25 mg tabletTake 1 tablet by mouth twice daily.Disp: Rfl: aspirin, enteric coated (ADULT LOW DOSE ASPIRIN) 81 mg EC tabletTake 1 tablet by mouth once daily.Disp: Rfl: BASIC METABOLIC PNL [SQBMP] Order #: [id number] FUTURE Prescriptions as of 11/17/2017 Sig: FUROSEMIDE 40 MG TABLET 60 mg in the AM and 40 mg aft* SPIRONOLACTONE 25 MG TABLET Take 1 tablet by mouth twice * INSULIN ASPART 100 UNIT/ML FRAZIER* Take 8 units subcutaneously T* INSULIN ASPART 100 UNIT/ML FRAZIER* SLIDING SCALE: 151-200 2 un* GABAPENTIN 300 MG CAPSULE Take 2 capsules by mouth thre* BUDESONIDE-FORMOTEROL HFA 160* Inhale 2 Puffs as instructed * INSULIN GLARGINE 300 UNIT/ML * Take 60 units SQ nightly and * ALBUTEROL SULFATE HFA 90 MCG/* Inhale 2 Puffs as instructed * TIOTROPIUM BROMIDE 2.5 MCG/AC* Inhale 2 Puffs as instructed * SIMVASTATIN 40 MG TABLET TAKE ONE TABLET BY MOUTH ONCE* PANTOPRAZOLE 40 MG TABLET,DEL* TAKE ONE TABLET BY MOUTH ONCE* POTASSIUM CHLORIDE ER 10 MEQ * TAKE ONE TABLET BY MOUTH JANETH* OXYGEN (HOME THERAPY) Inhale 2.5 L/min as instructe* AMLODIPINE 2.5 MG TABLET Take 1 tablet by mouth once d* ALBUTEROL SULFATE INHALATION Inhale as instructed. IPRATROPIUM BROMIDE 0.02 % SO* Use 0.5 mg via nebulizer four* NITROGLYCERIN 0.4 MG SUBLINGU* Dissolve 0.4 mg under the ton* ISOSORBIDE MONONITRATE ER 30 * Take 1 tablet by mouth twice * APIXABAN 5 MG TABLET Take 1 tablet by mouth twice * ASPIRIN 81 MG TABLET,DELAYED * Take 1 tablet by mouth once d* COLCHICINE 0.6 MG TABLET Take two tablets in morning a* Problem List As Of Date 11/17/2017 Noted Resolved HOCM (hypertrophic obstructive cardiomyopathy) * More... SVT (supraventricular tachycardia) [I47.1] More... Carotid artery disease [I77.9] More... CAD (coronary artery disease) [I25.10] HTN (hypertension) [I10] More... Hyperlipidemia [E78.5] More... Pneumonia [J18.9] 10/27/2017 More... COPD (chronic obstructive pulmonary disease) [J* More... Sleep apnea [G47.30] More... HH (hiatus hernia) [K44.9] GERD (gastroesophageal reflux disease) [K21.9] More... Renal insufficiency [N28.9] More... Arthritis [M19.90] Numbness and tingling of right leg [R20.0, R20.* Depression [F32.9] Diabetes [E11.9] Atrial fibrillation [I48.91] INVALID FOR* More... Diabetes mellitus due to underlying condition, *INVALID FOR* More... SUMMARY [V999.95] INVALID FOR* More... Dyspnea [R06.00] INVALID FOR* More... Heart failure, systolic, acute [I50.21] INVALID FOR* More... Obesity [E66.9] INVALID FOR* More... Gout [M10.9] CKD (chronic kidney disease) stage 3, GFR 30-59* Pacemaker [Z95.0] CKD (chronic kidney disease), stage IV (HCC) [N*INVALID FOR* Other instructions from your clinician: Restart aspirin 81 mg daily Increase lasix to 60 mg in the AM and 40 mg in the PM Increase aldactone to 25 mg twice a day Have blood work done in one week Weigh every day. LIFESTYLE CHANGE A healthy lifestyle is the most important component of your overall treatment plan. Please give serious thought to the following areas and commit to making medical terminologist changes. EAT A WHOLE FOOD, PLANT BASED DIET The nutrition your body gets is more important than the medicine you take. What matters most is the overall way you eat. We encourage you to minimize the use of animal products (which include dairy and all meats except fatty fish) and use whole, unprocessed plant foods to provide your protein, vitamins and other nutrients. We have a lot of information to share with you on this topic. We also hold Shared Medical Appointments, where you can come visit with Dr. Cardona in the company of other patients and spend over an hour talking about the challenges of changing the way you eat. This is not a diet. It is a way of life that you will keep with you. EXERCISE REGULARLY It is not important to spend hours in the gym, lifting weights and perspiring heavily. A total of 2-3 hours per week of aerobic (causing you to be moderately short of breath) exercise is sufficient to improve your health. Talk to us before you begin a new exercise program, if you have heart disease or experience shortness of breath or chest pain. REDUCE STRESS Chronic emotional and physical stress leads to disease. Ways of reducing stress include meditation, visualization, prayer, yoga and other forms of relaxation therapy. Consistency is the aguilera. Find a technique that works for you and do it every day. CULTIVATE RELATIONSHIPS Loneliness and isolation have a major negative impact on health. Seek out others who can love, care for and nurture you. Avoid hurtful relationships. MAINTAIN IDEAL BODY WEIGHT The best way to do this is to do all the things above. Our bodies naturally find the right weight if we keep moving and feed ourselves the right food. If your BMI is greater than 25, we strongly recommend a referral to a weight management program. Please speak to us or your family physician about available programs. AVOID NICOTINE IN ALL FORMS This includes all tobacco products, whether chewed, smoked, vaped, or rubbed on the skin. Smoking cessation programs, which can make use of tobacco substitutes, medications to suppress cravings and behavior management, are available. Please contact your family physician about programs in your area. Prescriptions ordered this encounter Disp Refills Start End FUROSEMIDE 40 MG TABLET 11/17/2017 Class: Med Update Cmt: This prescription was filled on 08/06/2017. Any refills authorized will be placed on file. Si mg in the AM and 40 mg after lunch SPIRONOLACTONE 25 MG TABLET 11/17/2017 Class: Med Update Cmt: This prescription was filled on 07/26/2017. Any refills authorized will be placed on file. Route: ORAL Sig: Take 1 tablet by mouth twice daily. ASPIRIN 81 MG TABLET,DELAYED RELEASE 11/17/2017 Class: Med Update Route: ORAL Sig: Take 1 tablet by mouth once daily. Medications Discontinued During This Encounter furosemide (LASIX) 40 mg tablet 45 t* 3 08/06/2017 11/17/2017 Cmt: This prescription was filled on 08/06/2017. Any refills authorized will be placed on file. Sig: TAKE 1 AND 1/2 TABLETS BY MOUTH ONCE DAILY Disc: Reason for discontinue is not on file. spironolactone (ALDACTONE) 25 mg tab* 30 t* 5 07/26/2017 11/17/2017 Cmt: This prescription was filled on 07/26/2017. Any refills authorized will be placed on file. Sig: TAKE ONE TABLET BY MOUTH ONCE DAILY Disc: Reason for discontinue is not on file. Follow-up and Disposition History Recorded Encounter Status:Closed by AREN CARDONA MD on 11/17/17 PROGRESS Observed: 11/17/2017 Status: COMPLETED Source: [place] 1:16 PM CLINIC OTHER CAMPUS REPOSITORY HNO ID: [id number] Author: Aren Cardona Service: (none) Author Type: Physician Type: Progress Notes Filed: 11/17/2017 5:32 PM Note Text: PERTINENT CARDIAC HISTORY ASHD - CABGx3 2003, PCIx6 RCA 2013, PCIx3 2015 HCM - septal myectomy 2003 HTN DM HL MARLA - unable to tolerate CPAP PAF CRF CHF - systolic, DAMION-I/ARB intolerance (CRF) Cardiomyopathy - ischemic, ICD 2015, revised 11/2016, beta lenny intolerance ADHERENCE TO GUIDELINES DAMION-I or ARB for HF with prior LVEF<40 (NQF 0081) - CRF ASA or Plavix for ASHD (NQF 0067) - restart Beta lenny for ASHD with prior NE or prior LVEF<40 (NQF 0070) - COPD Beta lenny for HF with prior LVEF<40 (NQF 0083) - COPD DAMION-I or ARB for ASHD with DM or prior LVEF<40 (NQF 0066) - CRF Statin therapy for ASHD or FHL or DM - met BMI documented and plan if >25 (NQF 0421) - lifestyle recommendation form Tobacco use screening and referral (NQF 0028) - lifestyle recommendation form Recommendation for whole food, plant based diet - lifestyle recommendation form CLINICAL IMPRESSION/PLAN: Luz Baca has evidence of decompensated systolic heart failure. She would benefit from an increase in her diuretic. More aggressive treatment for her cardiomyopathy is also indicated. Her device therapy consists of a single ventricular lead and she is largely paced. We cannot assess her atrial fibrillation. She has no atrial lead. 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 Her LV function by echo is in the 30% range. Stress test estimated 50%, but may have been compromised by her rhythm. She may also benefit from the addition of carvedilol and DAMION inhibitor, although her renal function is labile. For the time being, she will increase Lasix to 60 milligrams in the morning and 40 in the afternoon and Aldactone to 25 milligrams twice daily. She will have basic profile done in one week. Once her heart failure is more stable and renal function is documented to be stable, we will consider addition of an DAMION inhibitor. Her renal function is nearing the time when we will likely need to decrease her dose of Eliquis. Presently, she is tolerating well without evidence of abnormal bleeding. She has significant obstructive coronary disease with multiple stents. I have asked her to restart aspirin 81 milligrams daily and let me know promptly should she have any excess bleeding or bruising. We will consider discontinuing Norvasc, in the face of LV dysfunction. She is having some episodic chest discomfort, which may be related to pulmonary venous hypertension. Prior to discontinuing Norvasc, we will reassess her chest pain frequency. I will see her in 2 months or as needed. Written and verbal health teaching given to patient, patient verbalizes understanding and agrees with treatment plan. This note was generated using Psonar voice recognition system, and there may be some incorrect words, spellings, and punctuation that were not noted in checking the note before saving. DIAGNOSIS FOR VISIT: CHF ASHD HISTORY OF PRESENT ILLNESS Luz Baca returns for problem follow-up visit. She has been noticing more shortness of breath recently. Laboratory studies show elevation of BNP. She was felt to have decompensated heart failure. She has noted intermittent soreness in the chest which is worse when taking a deep breath. She has used occasional nitroglycerin with partial relief. She has had no exertional chest tightness but is more short of breath with activity. She's noted mild edema. She's had no syncope. She has occasional sensation of an irregular heart rhythm, lasting up to 30 seconds. She has had no TIAs, amaurosis or claudication. Since her most recent visit, she underwent pharmacologic stress test which showed mild depression of LV function but no evidence of ischemia. ALLERGIES: ALLERGIES Allergen Reactions - Latex Rash, Itching Itching and welts. No wheezing or shortness of breath. - Penicillins Rash, Itching - Tetracycline GI Upset Emesis and diarrhea. - Atorvastatin Unknown - Bactrim [Sulfametho* Unknown I don't remember. - Codeine Unknown - Dilaudid [Hydromorp* Unknown - Meperidine - Pentazocine - Pioglitazone Unknown - Propoxyphene CURRENT OUTPATIENT MEDICATIONS: insulin aspart (NOVOLOG FLEXPEN) 100 unit/mL inpn Take 8 units subcutaneously TID with meals insulin aspart (NOVOLOG FLEXPEN) 100 unit/mL inpn SLIDING SCALE: 151-200 2 units, 201-250 4 units, 251-300 6 units, 301-350 8 units, 351-400 10 units, over 400 12 units gabapentin (NEURONTIN) 300 mg capsule Take 2 capsules by mouth three times daily for 30 days. budesonide-formoterol (SYMBICORT) 160-4.5 mcg/actuation inhaler Inhale 2 Puffs as instructed twice daily. insulin glargine (TOUJEO SOLOSTAR) 300 unit/mL (1.5 mL) inpn Take 60 units SQ nightly and 40 units SQ in the morning. albuterol HFA (VENTOLIN HFA) 90 mcg/actuation inhaler Inhale 2 Puffs as instructed every 4 hours as needed. tiotropium bromide (SPIRIVA RESPIMAT) 2.5 mcg/actuation mist Inhale 2 Puffs as instructed once daily. simvastatin (ZOCOR) 40 mg tablet TAKE ONE TABLET BY MOUTH ONCE DAILY AT BEDTIME furosemide (LASIX) 40 mg tablet TAKE 1 AND 1/2 TABLETS BY MOUTH ONCE DAILY spironolactone (ALDACTONE) 25 mg tablet TAKE ONE TABLET BY MOUTH ONCE DAILY pantoprazole DR (PROTONIX) 40 mg tablet TAKE ONE TABLET BY MOUTH ONCE DAILY potassium chloride ER (K-DUR, KLOR-CON) 10 mEq tablet TAKE ONE TABLET BY MOUTH DAILY WITH BREAKFAST OXYGEN, HOME THERAPY, Inhale 2.5 L/min as instructed as directed. amLODIPine (NORVASC) 2.5 mg tablet Take 1 tablet by mouth once daily. ALBUTEROL SULFATE INHALATION Inhale as instructed. ipratropium (ATROVENT) 0.02 % nebulizer solution Use 0.5 mg via nebulizer four times daily. nitroglycerin sublingual (NITROQUICK) 0.4 mg SL tablet Dissolve 0.4 mg under the tongue every 5 minutes as needed. isosorbide mononitrate ER (IMDUR) 30 mg 24 hr tablet Take 1 tablet by mouth twice daily. apixaban (ELIQUIS) 5 mg tab tab(s) Take 1 tablet by mouth twice daily. colchicine 0.6 mg tablet Take two tablets in morning and one tablet one hour later. Repeat this process for a total of 5 days. PAST MEDICAL HISTORY Diagnosis Date - Arthritis - Atrial fibrillation (HCC) - CAD (coronary artery disease) stents x9, defibrillator, CABG. Seeing Dr. Cardona - Cardiac defibrillator in place - Cardiomegaly - Carotid artery disease (HCC) left - CKD (chronic kidney disease), stage IV (HCC) - COPD (chronic obstructive pulmonary disease) ([facility]) Dr. Cruz - Depression - Diabetes ([facility]) - Diabetic neuropathy ([facility]) - GERD (gastroesophageal reflux disease) - Gout - HH (hiatus hernia) - HOCM (hypertrophic obstructive cardiomyopathy) ([facility]) - HTN (hypertension) - Hyperlipidemia - Morbid obesity with BMI of 40.0-44.9, adult ([facility]) - Pacemaker - Pneumonia h/o pneumonia/bronchitis - Renal insufficiency 2003 post op - Sleep apnea 2011 not on CPAP, unable to tolerate mask 02/2017 - SVT (supraventricular tachycardia) ([facility]) NSVT and questionable VT in 2003 post op PAST SURGICAL HISTORY Procedure Laterality Date - PAST SURGICAL HISTORY OF 07/18/2004 Septal myectomy and CABG x2 (DEBORAH-LAD, SVG-PDA). - PAST SURGICAL HISTORY OF left breast nodule removed - PAST SURGICAL HISTORY OF hysterectomy - PAST SURGICAL HISTORY OF perianal abscess drained - PAST SURGICAL HISTORY OF cholecystectomy - PAST SURGICAL HISTORY OF skin lesions removed FAMILY HISTORY Problem Relation Age of Onset - Hypertension Mother living at age 93, HTN - Heart Failure Mother [place] - Cancer Father age 71, lung cancer Social History Marital status: Spouse name: Years of education: Number of children: Social History Main Topics Smoking status: Former Smoker Packs/day: 2.50 Years: 43.00 Types: Cigarettes Start date: 1961 Quit date: 07/07/2004 Smokeless status: Never Used Alcohol use: No Drug use: No Other Topics Concern Caffeine Concern Yes Comment:coffee 1 cup daily Special Diet No Comment:Regular Exercise No Comment:no unable, due to SOB x several months. REVIEW OF SYSTEMS: General: No chills, fever, weight loss, night sweats. Respiratory: No productive cough. Cardiac: As noted above. GI: No melena. : No dysuria. Musculoskeletal: No myalgias. PHYSICAL EXAMINATION: S/he is alert and in no distress. VITAL SIGNS: BP 126/86 Pulse 64 Ht 5' 8 (1.73m) Wt 223 lb (101.2kg) BMI 33.91 kg/(m2). SHEENT: Skin is warm and dry. No xanthelasmas appreciated. Pharynx is benign. There is no oral cyanosis. Neck: supple. No adenopathy or thyroid enlargement. Chest: There are scattered rales and rhonchi. There is mild expiratory prolongation. Trachea is midline. Air entry is equal. There is no chest wall tenderness. Cardiac: Regular rhythm. S1 and S2 are normal. PMI is nondisplaced. There is a soft systolic ejection murmur. No click is heard. Carotids are brisk without bruits. JVP is less than 10 cm. Abdomen: Soft and nontender. Obesity precludes adequate examination. There are no pulsatile masses or bruits. No liver enlargement. Bowel sounds are active. Extremities: 1 plus chronic, brawny, nonpitting edema. Pulses are diminished in the lower extremities, without evidence of ischemia. No clubbing or cyanosis. No femoral bruits. Neurologic: Grossly normal motor and sensory. S/he is alert and oriented x4. Recent chest x-ray showed marked cardiomegaly without PVR. There is a small effusion. Stress test showed no evidence of ischemia. Renal function is impaired with GFR 24. BNP was 1513. Electronically Signed: Aren Cardona MD November 17, 2017 1:16 PM CC:Jameson Kamara MD PROGRESS Observed: 11/17/2017 Status: COMPLETED Source: [place] 11:50 AM [facility] REPOSITORY O ID: [id number] Author: Jose C Rodriguez Service: (none) Author Type: Physician Type: Progress Notes Filed: 11/17/2017 1:14 PM Note Text: Follow up podiatric office visit for: Chief Complaint: This 77 year old who presents for follow up:gout of right ankle. Patient has been doing the following since last visit: patient tool colchicine for 3 days. She discontinued the colchicine because she developed diarrhea. She states the pain is better currently. She denies any current diarrhea. She has no other complaints. PAIN EVALUATION 11/17/2017 Pain Score: 10 Pain Location: Foot-Right Description: Throbbing Duration Amount of Time: 6 Duration Units: Months Frequency: Continuous Intervention: Declined Hemoglobin A1C Date Value Ref Range Status 10/27/2017 16.1 (H) 4.3 - 5.6 % Final Comment: HbA1c value is greater than 15%, consider possibility of hemoglobin variant interference. Hemoglobin A1c Date Value Ref Range Status 10/27/2017 >15 4 - 6 % Final PCP: Jameson Kamara MD PAST MEDICAL HISTORY Diagnosis Date - Arthritis - Atrial fibrillation (HCC) - CAD (coronary artery disease) stents x9, defibrillator, CABG. Seeing Dr. Cardona - Cardiac defibrillator in place - Cardiomegaly - Carotid artery disease ([facility]) left - CKD (chronic kidney disease), stage IV ([facility]) - COPD (chronic obstructive pulmonary disease) ([facility]) Dr. Cruz - Depression - Diabetes ([facility]) - Diabetic neuropathy ([facility]) - GERD (gastroesophageal reflux disease) - Gout - HH (hiatus hernia) - HOCM (hypertrophic obstructive cardiomyopathy) ([facility]) - HTN (hypertension) - Hyperlipidemia - Morbid obesity with BMI of 40.0-44.9, adult ([facility]) - Pacemaker - Pneumonia h/o pneumonia/bronchitis - Renal insufficiency 2003 post op - Sleep apnea 2011 not on CPAP, unable to tolerate mask 02/2017 - SVT (supraventricular tachycardia) ([facility]) NSVT and questionable VT in 2003 post op Current Outpatient Prescriptions: budesonide-formoterol (SYMBICORT) 160-4.5 mcg/actuation inhaler Inhale 2 Puffs as instructed twice daily. albuterol HFA (VENTOLIN HFA) 90 mcg/actuation inhaler Inhale 2 Puffs as instructed every 4 hours as needed. furosemide (LASIX) 40 mg tablet TAKE 1 AND 1/2 TABLETS BY MOUTH ONCE DAILY amLODIPine (NORVASC) 2.5 mg tablet Take 1 tablet by mouth once daily. ALBUTEROL SULFATE INHALATION Inhale as instructed. apixaban (ELIQUIS) 5 mg tab tab(s) Take 1 tablet by mouth twice daily. insulin aspart (NOVOLOG FLEXPEN) 100 unit/mL inpn Take 8 units subcutaneously TID with meals insulin aspart (NOVOLOG FLEXPEN) 100 unit/mL inpn SLIDING SCALE: 151-200 2 units, 201-250 4 units, 251-300 6 units, 301-350 8 units, 351-400 10 units, over 400 12 units colchicine 0.6 mg tablet Take two tablets in morning and one tablet one hour later. Repeat this process for a total of 5 days. gabapentin (NEURONTIN) 300 mg capsule Take 2 capsules by mouth three times daily for 30 days. insulin glargine (TOUJEO SOLOSTAR) 300 unit/mL (1.5 mL) inpn Take 60 units SQ nightly and 40 units SQ in the morning. tiotropium bromide (SPIRIVA RESPIMAT) 2.5 mcg/actuation mist Inhale 2 Puffs as instructed once daily. simvastatin (ZOCOR) 40 mg tablet TAKE ONE TABLET BY MOUTH ONCE DAILY AT BEDTIME spironolactone (ALDACTONE) 25 mg tablet TAKE ONE TABLET BY MOUTH ONCE DAILY pantoprazole DR (PROTONIX) 40 mg tablet TAKE ONE TABLET BY MOUTH ONCE DAILY potassium chloride ER (K-DUR, KLOR-CON) 10 mEq tablet TAKE ONE TABLET BY MOUTH DAILY WITH BREAKFAST OXYGEN, HOME THERAPY, Inhale 2.5 L/min as instructed as directed. ipratropium (ATROVENT) 0.02 % nebulizer solution Use 0.5 mg via nebulizer four times daily. nitroglycerin sublingual (NITROQUICK) 0.4 mg SL tablet Dissolve 0.4 mg under the tongue every 5 minutes as needed. isosorbide mononitrate ER (IMDUR) 30 mg 24 hr tablet Take 1 tablet by mouth twice daily. No current facility-administered medications for this visit. ALLERGIES Allergen Reactions - Latex Rash, Itching Itching and welts. No wheezing or shortness of breath. - Penicillins Rash, Itching - Tetracycline GI Upset Emesis and diarrhea. - Atorvastatin Unknown - Bactrim [Sulfametho* Unknown I don't remember. - Codeine Unknown - Dilaudid [Hydromorp* Unknown - Meperidine - Pentazocine - Pioglitazone Unknown - Propoxyphene PAST SURGICAL HISTORY Procedure Laterality Date - PAST SURGICAL HISTORY OF 07/18/2004 Septal myectomy and CABG x2 (DEBORAH-LAD, SVG-PDA). - PAST SURGICAL HISTORY OF left breast nodule removed - PAST SURGICAL HISTORY OF hysterectomy - PAST SURGICAL HISTORY OF perianal abscess drained - PAST SURGICAL HISTORY OF cholecystectomy - PAST SURGICAL HISTORY OF skin lesions removed Physical Exam: Constitutional: Pt is a well developed 77 year old female who is alert, oriented, cooperative and in no apparent distress. OBJECTIVE: NVSI unchanged from previous visit. Dermatological: Nails 1-5 b/l are normal. Webspaces clean and dry 1-4 b/l. Skin appears mildly dry. No open lesions present. No callosities present. Blister of left 3rd toe is now healed. Musculoskeletal/Orthopaedic: Patient has no pain to palpation of right ankle Swelling and pain has now since resolved. rom of ankle does not produce pain. ASSESSMENT: (I73.9) PAD (peripheral artery disease) (HCC) (primary encounter diagnosis) (M10.9) Acute gout of right ankle, unspecified cause (S90.425A) Blister of toe of left foot, initial encounter PLAN: 1. History and physical examination completed today. 2. Patient gout is now healed. She did have her symptoms improve with colchicine but developed diarrhea. If symptoms return, we could discuss with her pcp about maintenance therapy for gout. 3. All wounds to b/l feet are healed. No open sores noted. Recommend she continue with lotion to feet daily and avoid barefoot walking 4. We had discussed her pad and discussed referral to vascular surgery for discussion. She has appointment later in November. If she has any sores that may develop, she is to notify use immediately. No sores currently. 5. F/u in 2 months for nail care or sooner should problems develop. Jose C Rodriguez DPM CNOV Observed: 11/17/2017 Status: COMPLETED Source: [place] 11:10 AM [facility] REPOSITORY Office Visit (PODIWS) LUZ BACA ([id number]) 1940 F Date Time Provider Department 11/17/17 11:10 AM JOSE C RODRIGUEZ During your visit today, we recorded the following information about you: Jose C Rodriguez DPM 11/17/2017 1:14 PM Signed Follow up podiatric office visit for: Chief Complaint: This 77 year old who presents for follow up:gout of right ankle. Patient has been doing the following since last visit: patient tool colchicine for 3 days. She discontinued the colchicine because she developed diarrhea. She states the pain is better currently. She denies any current diarrhea. She has no other complaints. PAIN EVALUATION 11/17/2017 Pain Score: 10 Pain Location: Foot-Right Description: Throbbing Duration Amount of Time: 6 Duration Units: Months Frequency: Continuous Intervention: Declined Hemoglobin A1C Date Value Ref Range Status 10/27/2017 16.1 (H) 4.3 - 5.6 % Final Comment: HbA1c value is greater than 15%, consider possibility of hemoglobin variant interference. Hemoglobin A1c Date Value Ref Range Status 10/27/2017 ANDgt;15 4 - 6 % Final PCP: Jameson Kamara MD PAST MEDICAL HISTORY Diagnosis Date - Arthritis - Atrial fibrillation (HCC) - CAD (coronary artery disease) stents x9, defibrillator, CABG. Seeing Dr. Cardona - Cardiac defibrillator in place - Cardiomegaly - Carotid artery disease (HCC) left - CKD (chronic kidney disease), stage IV ([facility]) - COPD (chronic obstructive pulmonary disease) ([facility]) Dr. Cruz - Depression - Diabetes ([facility]) - Diabetic neuropathy ([facility]) - GERD (gastroesophageal reflux disease) - Gout - HH (hiatus hernia) - HOCM (hypertrophic obstructive cardiomyopathy) ([facility]) - HTN (hypertension) - Hyperlipidemia - Morbid obesity with BMI of 40.0-44.9, adult ([facility]) - Pacemaker - Pneumonia h/o pneumonia/bronchitis - Renal insufficiency 2003 post op - Sleep apnea 2011 not on CPAP, unable to tolerate mask 02/2017 - SVT (supraventricular tachycardia) ([facility]) NSVT and questionable VT in 2003 post op Current Outpatient Prescriptions: budesonide-formoterol (SYMBICORT) 160-4.5 mcg/actuation inhaler Inhale 2 Puffs as instructed twice daily. albuterol HFA (VENTOLIN HFA) 90 mcg/actuation inhaler Inhale 2 Puffs as instructed every 4 hours as needed. furosemide (LASIX) 40 mg tablet TAKE 1 AND 1/2 TABLETS BY MOUTH ONCE DAILY amLODIPine (NORVASC) 2.5 mg tablet Take 1 tablet by mouth once daily. ALBUTEROL SULFATE INHALATION Inhale as instructed. apixaban (ELIQUIS) 5 mg tab tab(s) Take 1 tablet by mouth twice daily. insulin aspart (NOVOLOG FLEXPEN) 100 unit/mL inpn Take 8 units subcutaneously TID with meals insulin aspart (NOVOLOG FLEXPEN) 100 unit/mL inpn SLIDING SCALE: 151-200 2 units, 201-250 4 units, 251-300 6 units, 301-350 8 units, 351-400 10 units, over 400 12 units colchicine 0.6 mg tablet Take two tablets in morning and one tablet one hour later. Repeat this process for a total of 5 days. gabapentin (NEURONTIN) 300 mg capsule Take 2 capsules by mouth three times daily for 30 days. insulin glargine (TOUJEO SOLOSTAR) 300 unit/mL (1.5 mL) inpn Take 60 units SQ nightly and 40 units SQ in the morning. tiotropium bromide (SPIRIVA RESPIMAT) 2.5 mcg/actuation mist Inhale 2 Puffs as instructed once daily. simvastatin (ZOCOR) 40 mg tablet TAKE ONE TABLET BY MOUTH ONCE DAILY AT BEDTIME spironolactone (ALDACTONE) 25 mg tablet TAKE ONE TABLET BY MOUTH ONCE DAILY pantoprazole DR (PROTONIX) 40 mg tablet TAKE ONE TABLET BY MOUTH ONCE DAILY potassium chloride ER (K-DUR, KLOR-CON) 10 mEq tablet TAKE ONE TABLET BY MOUTH DAILY WITH BREAKFAST OXYGEN, HOME THERAPY, Inhale 2.5 L/min as instructed as directed. ipratropium (ATROVENT) 0.02 % nebulizer solution Use 0.5 mg via nebulizer four times daily. nitroglycerin sublingual (NITROQUICK) 0.4 mg SL tablet Dissolve 0.4 mg under the tongue every 5 minutes as needed. isosorbide mononitrate ER (IMDUR) 30 mg 24 hr tablet Take 1 tablet by mouth twice daily. No current facility-administered medications for this visit. ALLERGIES Allergen Reactions - Latex Rash, Itching Itching and welts. No wheezing or shortness of breath. - Penicillins Rash, Itching - Tetracycline GI Upset Emesis and diarrhea. - Atorvastatin Unknown - Bactrim [Sulfametho* Unknown ANDquot;I don't remember.ANDquot; - Codeine Unknown - Dilaudid [Hydromorp* Unknown - Meperidine - Pentazocine - Pioglitazone Unknown - Propoxyphene PAST SURGICAL HISTORY Procedure Laterality Date - PAST SURGICAL HISTORY OF 07/18/2004 Septal myectomy and CABG x2 (DEBORAH-LAD, SVG-PDA). - PAST SURGICAL HISTORY OF left breast nodule removed - PAST SURGICAL HISTORY OF hysterectomy - PAST SURGICAL HISTORY OF perianal abscess drained - PAST SURGICAL HISTORY OF cholecystectomy - PAST SURGICAL HISTORY OF skin lesions removed Physical Exam: Constitutional: Pt is a well developed 77 year old female who is alert, oriented, cooperative and in no apparent distress. OBJECTIVE: NVSI unchanged from previous visit. Dermatological: Nails 1-5 b/l are normal. Webspaces clean and dry 1-4 b/l. Skin appears mildly dry. No open lesions present. No callosities present. Blister of left 3rd toe is now healed. Musculoskeletal/Orthopaedic: Patient has no pain to palpation of right ankle Swelling and pain has now since resolved. rom of ankle does not produce pain. ASSESSMENT: (I73.9) PAD (peripheral artery disease) ([facility]) (primary encounter diagnosis) (M10.9) Acute gout of right ankle, unspecified cause (S90.425A) Blister of toe of left foot, initial encounter PLAN: 1. History and physical examination completed today. 2. Patient gout is now healed. She did have her symptoms improve with colchicine but developed diarrhea. If symptoms return, we could discuss with her pcp about maintenance therapy for gout. 3. All wounds to b/l feet are healed. No open sores noted. Recommend she continue with lotion to feet daily and avoid barefoot walking 4. We had discussed her pad and discussed referral to vascular surgery for discussion. She has appointment later in November. If she has any sores that may develop, she is to notify use immediately. No sores currently. 5. F/u in 2 months for nail care or sooner should problems develop. Jose C Rodriguez DPM Referring Provider: JOSE C RODRIGUEZ [[id number]] Allergies As of Date: 11/17/2017 Noted Allergy Reaction LATEX 05/17/2017 2 - Rash 9 - Itching Comments: Itching and welts. No wheezing or shortness of breath. PENICILLINS 07/14/2004 2 - Rash 9 - Itching TETRACYCLINE 09/29/2010 8 - GI Upset Comments: Emesis and diarrhea. ATORVASTATIN 05/17/2017 16 - Unknown BACTRIM (SULFAMETHOXAZOLE-TRIMETH*05/17/2017 16 - Unknown Comments: I don't remember. CODEINE 05/17/2017 16 - Unknown DILAUDID (HYDROMORPHONE (BULK)) 05/17/2017 16 - Unknown MEPERIDINE 07/14/2004 PENTAZOCINE 07/14/2004 PIOGLITAZONE 05/17/2017 16 - Unknown PROPOXYPHENE 07/14/2004 Date Reviewed: 11/17/2017 Reviewed by: Seferino (Ma) Linda - Fully Assessed Reason for Visit: Recheck [92] Cmt: 2 wk f/u gout Primary Visit Diagnosis:PAD (peripheral artery disease) ([facility]) [I73.9] Other Visit Diagnoses:Acute gout of right ankle, unspecified cause [M10.9] Blister of toe of left foot, initial encounter [S90.425A] Prescriptions as of 11/17/2017 Sig: BUDESONIDE-FORMOTEROL HFA 160* Inhale 2 Puffs as instructed * ALBUTEROL SULFATE HFA 90 MCG/* Inhale 2 Puffs as instructed * FUROSEMIDE 40 MG TABLET TAKE 1 AND 1/2 TABLETS BY AURY* AMLODIPINE 2.5 MG TABLET Take 1 tablet by mouth once d* ALBUTEROL SULFATE INHALATION Inhale as instructed. APIXABAN 5 MG TABLET Take 1 tablet by mouth twice * INSULIN ASPART 100 UNIT/ML FRAZIER* Take 8 units subcutaneously T* INSULIN ASPART 100 UNIT/ML FRAZIER* SLIDING SCALE: 151-200 2 un* COLCHICINE 0.6 MG TABLET Take two tablets in morning a* GABAPENTIN 300 MG CAPSULE Take 2 capsules by mouth thre* INSULIN GLARGINE 300 UNIT/ML * Take 60 units SQ nightly and * TIOTROPIUM BROMIDE 2.5 MCG/AC* Inhale 2 Puffs as instructed * SIMVASTATIN 40 MG TABLET TAKE ONE TABLET BY MOUTH ONCE* SPIRONOLACTONE 25 MG TABLET TAKE ONE TABLET BY MOUTH ONCE* PANTOPRAZOLE 40 MG TABLET,DEL* TAKE ONE TABLET BY MOUTH ONCE* POTASSIUM CHLORIDE ER 10 MEQ * TAKE ONE TABLET BY MOUTH JANETH* OXYGEN (HOME THERAPY) Inhale 2.5 L/min as instructe* IPRATROPIUM BROMIDE 0.02 % SO* Use 0.5 mg via nebulizer four* NITROGLYCERIN 0.4 MG SUBLINGU* Dissolve 0.4 mg under the ton* ISOSORBIDE MONONITRATE ER 30 * Take 1 tablet by mouth twice * Medication notes this encounter COLCHICINE 0.6 MG TABLET >> Adriel Machuca 11/17/2017 11:11 AM >> ADRIEL MACHUCA WedNov 17, 2017 11:11 AM Patient stopped taking due to side effects. Please d/c. Problem List As Of Date 11/17/2017 Noted Resolved HOCM (hypertrophic obstructive cardiomyopathy) * More... SVT (supraventricular tachycardia) [I47.1] More... Carotid artery disease [I77.9] More... CAD (coronary artery disease) [I25.10] HTN (hypertension) [I10] More... Hyperlipidemia [E78.5] More... Pneumonia [J18.9] 10/27/2017 More... COPD (chronic obstructive pulmonary disease) [J* More... Sleep apnea [G47.30] More... HH (hiatus hernia) [K44.9] GERD (gastroesophageal reflux disease) [K21.9] More... Renal insufficiency [N28.9] More... Arthritis [M19.90] Numbness and tingling of right leg [R20.0, R20.* Depression [F32.9] Diabetes [E11.9] Atrial fibrillation [I48.91] INVALID FOR* More... Diabetes mellitus due to underlying condition, *INVALID FOR* More... SUMMARY [V999.95] INVALID FOR* More... Dyspnea [R06.00] INVALID FOR* More... Heart failure, systolic, acute [I50.21] INVALID FOR* More... Obesity [E66.9] INVALID FOR* More... Gout [M10.9] CKD (chronic kidney disease) stage 3, GFR 30-59* Pacemaker [Z95.0] CKD (chronic kidney disease), stage IV (HCC) [N*INVALID FOR* Encounter Status:Closed by JOSE C RODRIGUEZ DPM on 11/17/17 ALLERGIES ALLERGIES DATE TYPE / CODE NAME / CODE REACTION SEVERITY SOURCE Drug Penicillins/F0010 Hives Unknown [place] 9 Allergy/725337572( 45846(RXNORM) [facility]) Hospital Repository Drug Tetracyclines/F00 Hives Unknown [place] 9 Allergy/821388266( 3043001(RXNORM) [facility] SNOMED CT) Hospital Repository Drug codeine/[id number] Unknown Unknown [place] Allergy/901683056( 0(RXNORM) [facility] [place] [facility]) Hospital Repository Drug propoxyphene/F006 Unknown Unknown [place] 9 Allergy/597446986( 487582(RXNORM) [facility] SensegOMED CT) Hospital Repository Drug pentazocine/F0060 Unknown Unknown [place] 9 Allergy/770607767( 55548(RXNORM) [facility] Drug aspirin/Y76184980 Unknown Unknown [place] 9 Allergy/784240804( 7(RXNORM) [facility] Drug sulfamethoxazole/ Unknown Unknown [place] 9 Allergy/985913821( [id number](RXNORM [facility] ) [facility] Repository Drug trimethoprim/F006 Unknown Unknown [place] 9 Allergy/637806683( 356355(RXNORM) [facility] Drug meperidine/G63872 Hives Unknown [place] 9 Allergy/691180877( 4620(RXNORM) [facility] Drug hydromorphone/F00 Unknown Unknown [place] 9 Allergy/291101889( 5389041(RXNORM) [facility] Drug atorvastatin/F006 Unknown Unknown [place] 9 Allergy/197284292( 880804(RXNORM) [facility] Drug pioglitazone/F006 Unknown Unknown [place] 9 Allergy/312007453( 088242(RXNORM) [facility] Drug latex/B281837223( Anaphylaxis Unknown [place] 9 Allergy/180362025( RXNORM) [facility] Miscellaneous chloroprep Unknown Unknown [place] Allergy/392606605( [facility] Hospital Repository DRUG ASPIRIN ANAPHYLAXIS [facility] 8 INGREDI/467850255( Clinic Other SNOMED CT) [place] Repository DRUG/401018464(SNO SULFAMETHOXAZOLE- OTHER: SEE C [facility] [address]) TRIMETHOPRIM Clinic Other [place] Repository DRUG LATEX RASH [facility] 7 INGREDI/986747249( Clinic Other SNOMED CT) [place] Repository DRUG ATORVASTATIN UNKNOWN [place] 7 INGREDI/171368402( Clinic Other SNOMED CT) [place] Repository DRUG/905359131(SNO SULFAMETHOXAZOLE- UNKNOWN [place] [address]) TRIMETHOPRIM Clinic Other [place] Repository DRUG CODEINE UNKNOWN [place] 7 INGREDI/557906986( Clinic Other SNOMED CT) [place] Repository DRUG/591067974(SNO HYDROMORPHONE UNKNOWN [place] [address]) (BULK) Clinic Other [place] Repository DRUG PIOGLITAZONE UNKNOWN [place] 7 INGREDI/113603927( Clinic Other SNOMED CT) [place] Repository DRUG TETRACYCLINE GI UPSET High [place] 0 INGREDI/433812424( Clinic Other SNOMED CT) [place] Repository Drug PENICILLINS RASH [facility] [place] 4 Class/577310423(SN Clinic Other OMED CT) [place] Repository DRUG MEPERIDINE [place] 4 INGREDI/174351594( Clinic Other SNOMED CT) [place] Repository DRUG PENTAZOCINE [place] 4 INGREDI/479061889( Clinic Other SNOMED CT) [place] Repository DRUG PROPOXYPHENE [place] 4 INGREDI/950823206( Clinic Other SNOMED CT) [place] Repository NG/755998555(SNOME ASPIRIN [facility]) [facility] Repository NG/947047541(SNOME LATEX [facility] D [facility]) [facility] System Repository NG/251624817(SNOME PENICILLINS [facility] D [facility]) [facility] System Repository NG/869881773(SNOME TETRACYCLINE [facility] D [facility]) [facility] System Repository NG/919455940(SNOME ATORVASTATIN [facility] D [facility]) [facility] System Repository NG/589366859(SNOME SULFAMETHOXAZOLE- [facility] D [facility]) TRIMETHOPRIM Health System Repository NG/140926732(SNOME CODEINE [facility] D [facility]) [facility] System Repository NG/418471952(SNOME HYDROMORPHONE [facility] D CT) (BULK) Health System Repository NG/500663998(SNOME MEPERIDINE [facility] D [facility]) [facility] System Repository NG/581261836(SNOME PENTAZOCINE [facility]) [facility] System Repository NG/385802194(SNOME PIOGLITAZONE [facility]) [facility] System Repository NG/914283795(SNOME PROPOXYPHENE [facility] D [facility]) Health System Repository ENCOUNTERS ENCOUNTERS ADMIT/DISCHARGE ACCOUNT NUMBER ADMITTING ENCOUNTER LOCATION SOURCE CLASS 11/12/2018/11/12/19 [id number] Emergency [address] ding:ED Repository 11/12/2018 [id number] Ambulatory [facility] ding:AVE Repository B 11/05/2018 [id number] Inpatient [facility] [place] [address] Encounter 4WRoom: System [id number]: Repository [id number] 11/04/2018/11/04/19 [id number] Emergency [address] ding:ED Repository 11/03/2018 [id number] Ambulatory BMSBuilding: [facility] Repository 11/03/2018 [id number] Ambulatory [facility] ding:WC Repository 11/03/2018/11/04/19 [id number] Ambulatory [address] Main [place] Repository 11/02/2018/11/02/19 [id number] Ambulatory [place] [facility] Main [place] Repository 10/13/2018/10/17/20 [id number] Ambulatory [place] [facility] Main [place] Repository 10/06/2018/10/06/20 [id number] Ambulatory [place] [facility] Main [place] Repository 10/06/2018/10/06/20 [id number] Ambulatory [place] [facility] Main [place] Repository 10/06/2018/10/07/20 [id number] Ambulatory [place] [facility] Main [place] Repository 09/27/2018/09/27/20 [id number] Ambulatory [place] [facility] Main [place] Repository 09/27/2018/09/28/20 [id number] Ambulatory [place] [facility] Main [place] Repository 09/22/2018/09/23/20 [id number] MARGRET, Ambulatory [place] [address] [facility] Other [place] Repository 09/20/2018/09/20/20 [id number] Ambulatory [place] [facility] Main [place] Repository 09/19/2018/09/20/20 [id number] Ambulatory [place] [facility] Main [place] Repository 09/17/2018/09/19/20 [id number] Ambulatory [place] [facility] Main [place] Repository 09/02/2018/09/02/20 [id number] Ambulatory [place] [facility] Other [place] Repository 09/02/2018/09/02/20 [id number] Ambulatory [place] [address] MEDICAL Repository CENTERBuildi ng:AKEPD 08/25/2018/08/25/20 [id number] Ambulatory [place] [facility] Main [place] Repository 08/23/2018/08/26/20 [id number] Ambulatory [address] Main [place] Repository 08/18/2018 [id number] Ambulatory BMSBuilding: [place] [facility] Repository 08/17/2018/08/18/20 [id number] González, Ambulatory [place] ding:ZO8Pddz Repository : [id number]: 1 08/11/2018/08/12/20 [id number] Ambulatory [place] [facility] Main [place] Repository 08/09/2018/08/09/20 [id number] Ambulatory [place] [facility] Main [place] Repository 08/05/2018/08/05/20 [id number] Ambulatory [address] Main [place] Repository 08/04/2018/08/04/20 [id number] Ambulatory [place] [facility] [place] Repository 08/04/2018/08/05/20 [id number] Ambulatory [place] [facility] Main [place] Repository 08/02/2018 [id number] [facility] [place] Repository 07/28/2018/07/28/20 [id number] Ambulatory [place] [facility] [place] Repository 07/26/2018/07/26/20 [id number] Ambulatory [place] [facility] [place] Repository 07/26/2018/07/26/20 [id number] Ambulatory [place] [facility] Main [place] Repository 07/21/2018/07/22/20 [id number] Ambulatory [place] [facility] Main [place] Repository 07/20/2018/07/20/20 [id number] Ambulatory [place] [facility] Main [place] Repository 07/12/2018/07/12/20 [id number] MARGRET Ambulatory [address] [facility] Other [place] Repository 07/07/2018 [id number] Ambulatory [facility] [place] Other [place] Repository 07/05/2018/07/06/20 [id number] Ambulatory [address] Main [place] Repository 06/30/2018/06/30/20 [id number] Ambulatory [address] Main [place] Repository 06/30/2018/06/30/20 [id number] Ambulatory [place] [facility] Other [place] Repository 06/28/2018/06/28/20 [id number] Ambulatory [place] [facility] Main [place] Repository 06/24/2018/06/29/20 [id number] Ambulatory [place] [facility] Main [place] Repository 06/23/2018/06/23/20 [id number] Ambulatory [place] [facility] Main [place] Repository 06/23/2018/06/24/20 [id number] Ambulatory [place] [facility] Main [place] Repository 06/17/2018 [id number] Ambulatory BMSBuilding: [place] BMS.[facility] Repository 06/16/2018/06/16/20 [id number] Ambulatory [place] [facility] Main [place] Repository 06/16/2018/06/17/20 [id number] Ambulatory [place] [facility] Main [place] Repository 06/16/2018/06/16/20 [id number] Ambulatory [place] [facility] Main [place] Repository 06/14/2018/06/15/20 [id number] Ambulatory [place] [facility] [place] Repository 06/07/2018/06/08/20 [id number] Ambulatory [place] [address] [facility] Main [place] Repository 06/06/2018/06/15/20 [id number] Ambulatory [place] [facility] Main [place] Repository 06/02/2018/06/28/20 [id number] Ambulatory [address] Other [place] Repository 06/02/2018/06/28/20 [id number] Ambulatory [address] MEDICAL Repository CENTERBuildi ng:AKEPD 05/31/2018/06/02/20 [id number] Ambulatory [address] Main [place] Repository 05/25/2018/05/25/20 [id number] Ambulatory [address] Main [place] Repository 05/24/2018/05/24/20 [id number] Ambulatory [address] Main [place] Repository 05/24/2018 [id number] Ambulatory [facility] MEDICAL Repository CENTERBuildi ng:CAGWS 05/19/2018/05/19/20 [id number] Emergency [place] [address] [place] [address] ding:ED Repository 05/19/2018/05/19/20 [id number] Ambulatory [place] [facility] [place] Repository 05/19/2018/05/20/20 [id number] Ambulatory [place] [facility] [place] Repository 05/13/2018/05/13/20 [id number] Ambulatory BMSBuilding: [place] [facility] Repository 05/11/2018/05/13/20 [id number] Garrison, Inpatient [place] ding:PCURoom Repository : [id number]: 1 05/11/2018 [id number] [place] Ambulatory BMSBuilding: [place] BMS.[facility] Repository 05/11/2018 [id number] [place] Ambulatory BMSBuilding: [place] BMS.CF.[facility] Repository 05/11/2018 [id number] [place] Ambulatory BMSBuilding: [place] [facility]MS.[facility] Repository 05/11/2018 [id number] [place] Ambulatory BMSBuilding: [place] [facility]MS.[facility] Repository 05/11/2018/05/13/20 [id number] Ambulatory BMSBuilding: [place] 18 [facility] Repository 05/10/2018/05/10/20 [id number] Ambulatory [address] [place] Repository 05/04/2018/05/04/20 [id number] Ambulatory [address] Repository 05/03/2018/05/03/20 [id number] Ambulatory [address] Repository 05/03/2018/05/05/20 [id number] Ambulatory [address] Repository 04/28/2018/04/28/20 [id number] Ambulatory [address] Repository 04/28/2018/04/28/20 [id number] Ambulatory [address] Repository 04/28/2018/05/02/20 [id number] Ambulatory [address] Repository 04/22/2018/04/22/20 [id number] Ambulatory BMSBuilding: [place] [address] [place] [address] Repository 04/21/2018/04/22/20 [id number] Sementi, Ambulatory [address] ding:PCURoom Repository : [id number]: 1 04/21/2018 [id number] Sementi, Ambulatory BMSBuilding: [place] BMS.[facility] Repository 04/21/2018/04/22/20 [id number] Ambulatory BMSBuilding: [place] Repository 04/20/2018 [id number] Emergency [facility] [place] [address] EDRoom: System [id number]: Repository [id number] 03/17/2018/03/21/20 [id number] Ambulatory [facility] [facility] [place] Repository 03/17/2018/03/17/20 [id number] Ambulatory [place] [address] Clinic Main [place] Repository 03/17/2018/03/17/20 [id number] Ambulatory [address] Main [place] Repository 03/17/2018/09/28/20 [id number] Ambulatory [address] Main [place] Repository 02/18/2018/02/19/20 [id number] Emergency [address] Other [place] Repository 01/27/2018/02/18/20 [id number] LUCRECIA, Inpatient [address] [facility] Other [place] Repository 01/26/2018 [id number] Ambulatory [facility] [place] Main [place] Repository 01/26/2018/01/27/20 [id number] Ambulatory [address] Main [place] Repository 01/26/2018/01/28/20 [id number] Ambulatory [address] Main [place] Repository 01/25/2018 [id number] Ambulatory [facility] [place] Other [place] Repository 01/25/2018 [id number] Ambulatory [facility] [place] Other [place] Repository 01/25/2018 [id number] Ambulatory [facility] [place] Other [place] Repository 01/25/2018 [id number] Ambulatory [facility] [place] Other [place] Repository 01/20/2018/01/24/20 [id number] NUVIA, Inpatient [address] Other [place] Repository 01/19/2018 [id number] Ambulatory [facility] Hospital ding:US Repository 01/18/2018/01/19/20 [id number] Ambulatory [address] Other [place] Repository 01/18/2018/01/19/20 [id number] Ambulatory [place] [address] MEDICAL Repository CENTERBuildi ng:CAGWS 01/18/2018/01/20/20 [id number] Ambulatory [address] Main [place] Repository 01/07/2018/01/08/20 [id number] Ambulatory [address] Main [place] Repository 01/07/2018/01/12/20 [id number] Ambulatory [facility] [place] Repository 01/06/2018/01/07/20 [id number] Ambulatory [place] [facility] [place] Repository 01/06/2018/01/07/20 [id number] Ambulatory [place] [facility] [place] Repository 01/06/2018/01/08/20 [id number] Ambulatory [place] [facility] [place] Repository 01/03/2018/01/04/20 [id number] [facility] [place] [facility] [place] Repository 12/23/2017/01/01/20 [id number] PEYMAN GUERRERO Inpatient [place] [facility] Other [place] Repository 12/21/2017/12/22/19 [id number] Ambulatory [place] [facility] [place] Repository 12/21/2017/12/22/19 [id number] Ambulatory [place] [facility] Other [place] Repository 12/21/2017/12/22/19 [id number] Ambulatory [address] MEDICAL Repository CENTERBuildi ng:CAGWS 12/20/2017/12/21/19 [id number] Ambulatory [place] [facility] [place] Repository 12/20/2017/12/22/19 [id number] Amb[place] [facility] [place] Repository 12/10/2017/12/15/19 [id number] LUCRECIA, Inpatient [address] [facility] Other [place] Repository 12/10/2017/12/18/19 [id number] Ambulatory [place] [facility] [place] Repository 12/06/2017/12/06/19 [id number] Emergency [place] [address] [place] [address] ding:ED Repository 12/02/2017/12/02/19 [id number] Ambulatory [place] [facility] [place] Repository 11/17/2017/11/17/19 [id number] Ambulatory [place] [facility] Other [place] Repository 11/17/2017/11/17/19 [id number] Ambulatory [address] MEDICAL Repository COWETABuildi ng:CAGWS 11/17/2017/11/17/19 [id number] Ambulatory [address] Main [place] Repository PAYERS PAYERS ENCOUNTER GUARANTOR PAYER SUBSCRIBER SOURCE 11/12/2018 LUZ Espinosa MAIN Insurance:MEDICARE MCCLAINDOB: [facility], PART A [facility] [id number] Hospital [place] [address]Spl: Number: Repository [id number] (HP) Date:2018-11-12 11/12/2018 Secondary NOT GIVENUNK [place] Insurance:SELF PAY [facility] Number: Effective Repository Date:2018-11-12 11/12/2018 LUZ G Primary NOT GIVENUNK Wali [id number] S MAIN Insurance:SELF PAY [facility] [place] [address]Tzr: Number: Effective Repository Date:2018-11-12 (HP) 11/05/2018 [facility] Health McClainDOB: Insurance:MedicarePol McClainDOB: System icy Number: Effective [id number] Repository [facility] Date: [place], [place] [address]Tck: () 11/05/2018 Secondary [facility] Health Insurance:MedicarePol McClainDOB: System icy Number: Effective [id number] Repository Date: 11/04/2018 LUZ G Primary LUZ G Wali [id number] S MAIN Insurance:MEDICARE MCCLAINDOB: [facility], PART A [facility] [id number] [address]Xwp: Number: Repository [id number] () Date:2018-11-04 11/04/2018 Secondary NOT GIVENUNK [place] Insurance:SELF PAY [facility] Number: Effective Repository Date:2018-11-04 11/03/2018 LUZ G Primary LUZ G [place] [id number] S MAIN Insurance:MEDICARE MCCLAINDOB: [facility], PART A [facility] [id number] of New Mexico Hospitals [address]Qtw: Number: Repository [id number] (HP) Date:2018-10-21 11/03/2018 Secondary NOT GIVENUNK Wal[place] Insurance:SELF PAY [facility] Number: Effective Repository Date:2018-11-03 11/03/2018 LUZ Franco Primary LUZ [id number] MA[address] Insurance:MEDICARE MCCLAINDOB: Community [address] [place], PART A [facility] [id number] Hospital [place] [address]Icx: Number: Repository [id number] (HP) Date:2018-10-21 11/03/2018 Secondary NOT GIVENUNK Wal[place] Insurance:SELF PAY [facility] Number: Effective Repository Date:2018-10-21 09/02/2018 LUZ Franco [facility]ARE A MCCLAINDOB: [facility] S AND [facility] Number: [id number] Repository [address] [id number] [place], [place] Date: [address]Hoa: (HP) 08/18/2018 LUZ Franco Primary LUZ [id number] MAIN Insurance:MEDICARE MCCLAINDOB: Community [address] [place], PART A [facility] [id number] Hospital [place] [address]Zuu: Number: Repository [id number] (HP) Date:2018-08-11 08/18/2018 Secondary NOT GIVENUNK [place] Insurance:SELF PAY [facility] Number: Effective Repository Date:2018-08-18 08/17/2018 LUZ Franco Primary LUZ [id number] MA[address] Insurance:MEDICARE MCCLAINDOB: [facility] [address] [place], PART A [facility] [id number] Hospital [place] [address]Gqt: Number: Repository [id number] (HP) Date:2018-08-11 08/17/2018 Secondary NOT GIVENUNK [place] Insurance:SELF PAY [facility] Number: Effective Repository Date:2018-08-11 06/17/2018 LUZ Franco Primary LUZ [id number] MA[address] Insurance:MEDICARE MCCLAINDOB: Community [address] [place], PART A [facility] [id number] [place] [address]Uep: Number: Repository [id number] (HP) Date:2018-05-13 06/17/2018 Secondary NOT GIVENUNK [place] Insurance:SELF PAY [facility] Number: Effective Repository Date:2018-05-13 06/02/2018 [facility]:MEDICARE A MCCLAINDOB: Health System S AND BPolicy Number: [id number] Repository [address] [id number] [place], [place] Date: [address]Obk: (HP) 05/24/2018 LUZ Franco Primary LUZ Anaya [facility]: Insurance:MEDICARE A MCCLAINDOB: Health System S AND BPolicy Number: [id number] Repository [address] [id number] [place], [place] Date: [address]Ngo: (HP) 05/19/2018 LUZ Franco Primary LUZ Keyes [id number] S MAIN Insurance:MEDICARE MCCLAINDOB: Community [address] [place], PART A [facility] [id number] [place] [address]Wms: Number: Repository [id number] () Date:2018-05-19 05/19/2018 Secondary NOT GIVENUNK [place] Insurance:SELF PAY [facility] Number: Effective Repository Date:2018-05-19 05/13/2018 LUZ Franco Primary LUZ Keyes [id number] S MAIN Insurance:MEDICARE MCCLAINDOB: Community [address] [place], PART A [facility] [id number] Hospital [place] [address]Fgl: Number: Repository [id number] () Date:2018-05-11 05/13/2018 Secondary NOT GIVENUNK [place] Insurance:SELF PAY [facility] Number: Effective Repository Date:2018-05-13 05/11/2018 LUZ Franco Primary LUZ Keyes [id number] S MAIN Insurance:MEDICARE MCCLAINDOB: Community [address] [place], PART A [facility] [id number] [place] [address]Bix: Number: Repository [id number] (HP) Date:2018-05-11 05/11/2018 Secondary NOT GIVENUNK [place] Insurance:SELF PAY [facility] Number: Effective Repository Date:2018-05-11 05/11/2018 LUZ CARMEN S MAIN Insurance:MEDICARE MCCLAINDOB: Community [address] [place], PART A [facility] [id number] [place] [address]Kds: Number: Repository [id number] (HP) Date:2018-05-11 05/11/2018 Secondary NOT GIVENUNK [place] Insurance:SELF PAY [facility] Number: Effective Repository Date:2018-05-11 05/11/2018 LUZ Franco Primary LUZ [id number] MA[address] Insurance:MEDICARE MCCLAINDOB: Community [address] [place], PART A [facility] [id number] Hospital [place] [address]Ygu: Number: Repository [id number] (HP) Date:2018-05-11 05/11/2018 Secondary NOT GIVENUNK [place] Insurance:SELF PAY [facility] Number: Effective Repository Date:2018-05-11 05/11/2018 LUZ [id number] MA[address] Insurance:MEDICARE MCCLAINDOB: Community [address] [place], PART A [facility] [id number] [place] [address]Qgs: Number: Repository [id number] (HP) Date:2018-05-11 05/11/2018 Secondary NOT GIVENUNK [place] Insurance:SELF PAY [facility] Number: Effective Repository Date:2018-05-11 05/11/2018 LUZ Franco Primary LUZ [id number] MA[address] Insurance:MEDICARE MCCLAINDOB: Community [address] [place], PART A [facility] [id number] [place] [address]Asm: Number: Repository [id number] (HP) Date:2018-05-11 05/11/2018 Secondary NOT GIVENUNK [place] Insurance:SELF PAY [facility] Number: Effective Repository Date:2018-05-11 05/11/2018 LUZ Franco Primary LUZ Franco [place] [id number] [address] MAIN Insurance:MEDICARE MCCLAINDOB: Community [address] [place], PART A [facility] [id number] [place] [address]Bim: Number: Repository [id number] (HP) Date:2018-05-11 05/11/2018 Secondary NOT GIVENUNK [place] Insurance:SELF PAY [facility] Number: Effective Repository Date:2018-05-11 04/22/2018 LUZ Franco Primary LUZ G Wali [id number] [address] MAIN Insurance:MEDICARE MCCLAINDOB: Community [address] [place], PART A [facility] [id number] [place] [address]Lww: Number: Repository [id number] (HP) Date:2018-04-21 04/22/2018 Secondary NOT GIVENUNK [place] Insurance:SELF PAY [facility] Number: Effective Repository Date:2018-04-22 04/21/2018 LUZ Franco Primary LUZ Franco [place] [id number] MAIN Insurance:MEDICARE MCCLAINDOB: Community [address] [place], PART A [facility] [id number] [place] [address]Pcr: Number: Repository [id number] (HP) Date:2018-04-21 04/21/2018 Secondary NOT GIVENUNK [place] Insurance:SELF PAY [facility] Number: Effective Repository Date:2018-04-21 04/21/2018 Luz Franco Primary Luz G Wali [id number] MA[address] Insurance:MEDICARE ClainDOB: Community [place], PART A [facility] [id number] Hospital [place] [address]Vlb: Number: Repository [id number] (HP) Date:2018-04-21 04/21/2018 Secondary NOT GIVENUNK [place] Insurance:SELF PAY [facility] Number: Effective Repository Date:2018-04-21 04/21/2018 LUZ Franco Primary LUZ Franco [place] [id number] [address] MAIN Insurance:MEDICARE MCCLAINDOB: Community [address] [place], PART A [facility] [id number] of New Mexico Hospitals [address]Ezb: Number: Repository [id number] (HP) Date:2018-04-21 04/21/2018 Secondary NOT GIVENUNK [place] Insurance:SELF PAY [facility] Number: Effective Repository Date:2018-04-21 04/20/2018 Luz Primary Luz [facility] Health McClainDOB: Insurance:MedicarePol McClainDOB: System icy Number: Effective [id number] Repository [facility] Date: [place], [place] [address]Fzd: (HP) 04/20/2018 [facility] Insurance:MedicarePol McClainDOB: System icy Number: Effective [id number] Repository Date: 01/19/2018 Luz Franco Primary Luz G [place] [id number] Insurance:MEDICARE ClainDOB: Community [address] [place], PART A [facility] [id number] of New Mexico Hospitals [address]Igu: Number: Repository [id number] () Date:2017-12-01 01/19/2018 Secondary NOT GIVENUNK [place] Insurance:SELF PAY [facility] Number: Effective Repository Date:2017-12-01 01/18/2018 LUZ Franco Primary LUZ Franco [place] [facility]: Insurance:MEDICARE A MCCLAINDOB: Health System S AND BPolicy Number: [id number] Repository [address] [id number] [place], [place] Date: [address]Ojl: (HP) 12/21/2017 LUZ Franco Primary LUZ [facility]: Insurance:MEDICARE A MCCLAINDOB: Health System S AND BPolicy Number: [id number] Repository [address] [id number] [place], [place] Date: [address]Jae: (HP) 12/06/2017 Luz Franco Primary Luz G Mc Wali [id number] MA[address] Insurance:MEDICARE ClainDOB: Community [address] [place], PART A BPolicy [id number] [facility] [address]Fzf: Number: Repository [id number] () Date:2017-12-06 12/06/2017 Secondary NOT GIVENUNK [place] Insurance:SELF PAY [facility] Number: Effective Repository Date:2017-12-06 11/17/2017 LUZ Franco Primary LUZ Franco [facility]ARE A [facility]: [facility] S AND BPolicy Number: [id number] Repository [address] [id number] [place] Date: [address]Mrc: ()
== END 2018-11-17 23:59 ==
LOC: WC 12:57
PROVIDERS: Family Provider Family Medicine; PCP Family Medicine; Visit Provider Nurse Practitioner Family
DX: L30.9 Dermatitis, unspecified (principal); I87.2 Venous insufficiency (chronic) (peripheral); I48.91 Unspecified atrial fibrillation; J44.9 Chronic obstructive pulmonary disease, unspecified; E11.22 Type 2 diabetes mellitus with diabetic chronic kidney disease; I13.2 Hypertensive heart and chronic kidney disease with heart failure and with stage 5 chronic kidney disease, or end stage renal disease; I50.9 Heart failure, unspecified; N18.6 End stage renal disease; Z79.01 Long term (current) use of anticoagulants; E11.40 Type 2 diabetes mellitus with diabetic neuropathy, unspecified; E11.51 Type 2 diabetes mellitus with diabetic peripheral angiopathy without gangrene; I48.2 Chronic atrial fibrillation; J96.11 Chronic respiratory failure with hypoxia; E78.5 Hyperlipidemia, unspecified; Z79.899 Other long term (current) drug therapy; Z79.4 Long term (current) use of insulin; Z87.891 Personal history of nicotine dependence
CPT/HCPCS: 99203; G0463

== ENCOUNTER 2018-11-04 10:47 | Emergency (ER) | payer MEDICARE, SELFPAY ==
[2018-11-03 13:29] VITALS: BMI 30.9
[2018-11-04] VITALS (12 sets, daily range): BP systolic 114–137; BP diastolic 51–74; PULSE 60–68; RESP 14–20; TEMP 36.6; O2SAT 87–99; BMI 32.4
--- NOTE | 2018-11-04 10:52 | EKG12_ITS ---
Test Reason : STROKE Blood Pressure : / mmHG Vent. Rate : 063 BPM Atrial Rate : 057 BPM P-R Int : 000 ms QRS Dur : 220 ms QT Int : 544 ms P-R-T Axes : 000 -78 099 degrees QTc Int : 556 ms Ventricular-paced rhythm Abnormal ECG Confirmed by HELEN COLLIER, MIKE ([id number]), associate editor NELLY LAEXANDER ([id number]) on 11/07/2018 9:42:36 AM Referred By: KOJO Confirmed By:MIKE CERVANTES MD
--- NOTE | 2018-11-04 10:52 | CT_ITS ---
STUDY: CT BRAIN WITHOUT CONTRAST REASON FOR EXAM: Female, 78 years old. Facial droop. RADIATION DOSAGE (If Supplied By Facility): CTDIvol = ( 44.99 ) mGy, DLP = ( 745.49 ) mGycm TECHNIQUE: Transaxial CT imaging of the brain was performed without administration of intravenous contrast material. Individualized dose optimization techniques were used for this CT. COMPARISON: None. FINDINGS: Normal soft tissue structures. Normal calvarium. There is mild cerebral atrophy with widening of the extra-axial spaces and ventricular dilatation. There are areas of decreased attenuation within the white matter tracts of the supratentorial brain, consistent with microvascular disease changes. Normal basal ganglia and thalami. Normal brainstem. There is mild cerebellar atrophy. Empty sella. There is no intracranial hemorrhage. There are no findings of an acute ischemic infarction. Atherosclerotic calcification of the vertebral arteries and the cavernous portions of the internal carotid arteries bilaterally. Normal visualized paranasal sinuses. CT/Brain/Head without Contrast IMPRESSION: Chronic involutional changes of the brain. N.B. : The above information has been verbally conveyed by Antonio Pascual MD to Marvel Cook on 11/04/2018 11:06:07 (ET). Electronically Signed: Antonio Pascual MD at 11:07 EST Tel [phone], Service support ,
[2018-11-04 10:55] LABS: Bedside Glucose 149 mg/dL (70-110)
--- NOTE | 2018-11-04 10:59 | NURSING ---
NEUROLOGY FOR DR VARMA
--- NOTE | 2018-11-04 11:00 | RAD_ITS ---
STUDY: X-RAY CHEST REASON FOR EXAM: Female, 78 years old. Weakness. Slurred speech. TECHNIQUE: Single AP portable view of the chest. COMPARISON: Comparison is made with prior study dated May 19, 2018. FINDINGS: A right-sided double-lumen catheter is in situ with the tip in the right atrium. EKG electrodes are seen. There is evidence of passive congestion and mild degree of CHF. Blunting of the left costophrenic angle. Mild left basilar atelectasis. Sternal cerclage wires and vascular clips are present from a prior sternotomy and coronary artery bypass graft procedure (CABG). Mild cardiomegaly. A left-sided unipolar pacemaker is seen. Normal mediastinum and samuel. Normal visualized pulmonary arteries. There is atherosclerotic calcification of the aortic arch with tortuosity. There are diffuse degenerative changes of the visualized thoracic spine. Normal visualized ribs, clavicles, and shoulders. There is no demonstrated abnormality of the visualized soft tissue structures of the upper abdomen. RAD/Chest 1 View IMPRESSION: Findings in keeping with a mild degree of CHF. Blunting of left costophrenic angle with left basilar atelectasis. Electronically Signed: Antonio Pascual MD at 11:26 EST Tel [phone], Service support ,
--- NOTE | 2018-11-04 11:01 | CT_ITS ---
STUDY: CTA NECK WITH CONTRAST REASON FOR EXAM: Female, 78 years old. CVA. RADIATION DOSAGE (If Supplied By Facility): CTDIvol = ( 21.68 ) mGy, DLP = ( 625.62 ) mGycm TECHNIQUE: CT angiography with multi-detector data acquisition was performed from the aortic arch to the skull base following intravenous administration of 100ML ml of Isovue 300 contrast. MIP images were reconstructed from the axial data set. Post-processing of the angiographic images was performed, with multiplanar reformation and 3D reconstruction. Individualized dose optimization techniques were used for this CT. COMPARISON: None. FINDINGS: A right-sided double-J catheter is seen. Inhomogeneous enlargement of the anterior midportion of the left lobe of thyroid with focal calcification. AORTIC ARCH: There is atherosclerotic calcific plaque formation of the aortic arch and great vessels arising from the aortic arch, without a hemodynamically significant stenosis. There is a normal origin of the brachiocephalic, left common carotid, and left subclavian arteries. Atherosclerotic plaque formation at the origin of the left common carotid artery and left subclavian artery. RIGHT CAROTID ARTERIES: There is atherosclerotic plaque formation of the common carotid artery, but without a hemodynamically significant stenosis. There is moderate atherosclerotic plaque formation with moderate narrowing of the right carotid bulb. There is severe atherosclerotic plaque formation of the origin of the right internal carotid artery with a near complete occlusion. Multiple calcific plaques in the internal carotid artery. Normal origin of the right external carotid artery (ECA). LEFT CAROTID ARTERIES: There is atherosclerotic plaque formation of the common carotid artery, but without a hemodynamically significant stenosis. There is moderate atherosclerotic plaque formation with moderate narrowing of the carotid bulb. There is severe atherosclerotic plaque formation of the origin of the left internal carotid artery with a near complete occlusion. Scattered plaque formation throughout the internal carotid artery. Normal origin of the left external carotid artery (ECA). VERTEBRAL ARTERIES: Nonstenotic calcific plaques in the vertebral arteries. CT/CTA Neck W/WO Contrast IMPRESSION: High-grade stenosis at the origin of both internal carotid arteries. Electronically Signed: Antonio Pascual MD at 12:28 EST Tel [phone], Service support ,
--- NOTE | 2018-11-04 11:01 | CT_ITS ---
STUDY: CTA OF THE BRAIN REASON FOR EXAM: Female, 78 years old. CVA. RADIATION DOSAGE (If Supplied By Facility): CTDIvol = ( 21.68 ) mGy, DLP = ( 625.62 ) mGycm TECHNIQUE: CT angiography was performed with a multi-detector CT scanner. Data acquisition was obtained from the skull base through the vertex following intravenous administration of 100 ml of 300. MIP images were reconstructed from the axial data set. Post-processing of the angiographic images was performed, with multiplanar reformation and 3D reconstruction. Individualized dose optimization techniques were used for this CT. COMPARISON: None. FINDINGS: Normal bilateral petrous carotid arteries. There is calcified plaque formation of the right cavernous carotid artery, without a cross-sectional luminal stenosis. There is calcified plaque formation of the left cavernous carotid artery, without a cross-sectional luminal stenosis. Normal right A1 segments of the anterior cerebral artery. Normal left A1 segments of the anterior cerebral artery. Normal intact anterior communicating artery (ACOM). Normal bilateral A2 segments of the anterior cerebral arteries. Normal right M1 and M2 segments of the middle cerebral arteries, with a normal M1 bifurcation. Normal left M1 and M2 segments of the middle cerebral arteries, with a normal M1 bifurcation. Normal right posterior communicating artery (PCOM). Normal left posterior communicating artery (PCOM). Normal bilateral vertebral arteries. Normal basilar artery with a normal basilar bifurcation. The visualized bilateral superior cerebellar (SCA) arteries are normal. Normal bilateral P1, P2 and visualized P3 segments of the posterior cerebral arteries. There is no demonstrated aneurysm of the [place] of [place]ar. Cerebral atrophy. CT/CTA Head W/WO Contrast IMPRESSION: Normal [place] of [place] without a demonstrated aneurysm or hemodynamically significant stenosis. Electronically Signed: Antonio Pascual MD at 12:24 EST Tel [phone], Service support ,
--- NOTE | 2018-11-04 11:02 | NURSING ---
1041 STROKE ALERT CALLED
[2018-11-04 11:09] LABS: Absolute Lymphocyte Count 1.47 X10^3/ul (0.83-4.51); Absolute Neutrophil Count 6.3 X10^3/uL (2.0-7.7); Basophil# 0.03 X10^3/uL; Basophil% 0.3 % (0-1); Eosinophil# 0.23 X10^3/uL; Eosinophils% 2.6 % (0-5); Hematocrit 40.5 % (37-47); Hemoglobin 12.5 g/dl (12.0-15.0); Lymphocyte # 1.47 X10^3/ul (4.0); Lymphocyte % 16.6 % (19-41); Mean Corp Hgb Conc 30.9 g/gl (32-36); Mean Corpuscular Hgb 31.8 pg (27.0-32.0); Mean Corpuscular Volume 103.1 fL (81-99); Mean Platelet Vol. 9.5 fl (6.2-12.0); Monocyte# 0.89 X10^3/uL; Neutrophil # 6.25 X10^3/uL (2.7-7.7); Neutrophil % 70.4 % (47-70); Platelet Count 134 K/mm3 (150-450); RBC Distribution Width CV 15.4 % (11.6-14.6); RBC Distribution Width SD 57.6 fl (35.1-43.9); Red Blood Count 3.93 M/mm3 (4.2-5.4); White Blood Count 8.9 K/mm3 (4.4-11.0)
--- NOTE | 2018-11-04 11:09 | CM.ED ---
Social Work Note Stroke alert called and SW met with pt's daughter. Introduced self and role at [facility]. Per the pt's daughter they were at her dialysis appointment today at [facility], when they noticed drooping on the right side of her mouth and slurred speech at approximately [phone]. Reports that the pt's PCP is Dr. Rain. Surveillance System Monitor is Dr. Lepe, Printing And Stamping Supervisor is Dr. Negron. Pt does live with her daughter and daughter reports assisting her with ADLs. The pt does have oxygen and a CPAP machine, but does not wear the CPAP per her daughter's report. According to the pt's daughter she does have a living will and HCPOA and her daughter, Pratima, is her HCPOA. Pt was just seen by Dr. Rain and the [facility] yesterday 11/03. Pratima reports that the pt does have HHC services through [facility] [place] ([phone]) and they were supposed to be out today between 3 & 4. Offer to update them and Pratima accepts. Placed call to [employer] and spoke with Sarah who claims the pt has not been seen by their HHC services since August of 2018. Inquire if she receives aide services, and Sarah confirms that she does not. Will update family. MO Reyes, YVES
[2018-11-04 11:10] LABS: POSITIVE COUNT NO; POSITIVE DIFFERENTIAL NO; POSITIVE MORPHOLOGY NO
[2018-11-04 11:18] LABS: International Normalized Ratio 1.1; Prothrombin Time (Protime)PT. 13.7 SECONDS (11.7-14.9)
[2018-11-04 11:19] LABS: Partial Thromboplast Time 28.7 Seconds (24.1-36.2)
[2018-11-04] MEDS: Ondansetron 4 MG/2 ML Vial IV (11:19)
--- NOTE | 2018-11-04 11:20 | CM.ED ---
Social Work Note Family states that they receive services through [facility] and provided this principal technical writer with RN, Catarina's contact. This contact was personal and Catarina was not on shift. Requested main line and placed call to [place] at [phone]. Updated [place] and will update whether pt is admitted or not. SW to continue to follow and assist as needed. Mariluz Jay, MASTER CONTROL ENGINEER, SHINGLE CUTTER
[2018-11-04 11:27] LABS: Anion Gap 8 (5-15); BUN 34 mg/dL (7-18); BUN/Creat Ratio 6.7 RATIO (10-20); Calcium,Total 8.6 mg/dL (8.5-10.1); Chloride 98 mmol/L (98-107); Creatinine, Serum 5.04 mg/dL (0.55-1.02); EST Glomerular Filtration Rate 9 mL/min (>60); Est Glom Filt Rate - Afr Amer 11 mL/min (>60); Estimated Creatinine Clearance 9.43 ml/min; Glucose 158 mg/dL (74-106); Potassium 3.8 mmol/L (3.5-5.1); Sodium Level 138 mmol/L (136-145)
[2018-11-04] MEDS: proMETHazine 25 MG/ML Syringe 6.25 MG IV (11:52)
--- NOTE | 2018-11-04 13:09 | NURSING ---
CALLED [facility] FOR TRANSFER.
--- NOTE | 2018-11-04 13:30 | CM.ED ---
Social Work Note Placed call to [facility] and notified that the pt would be transferred. Kennedi at [facility] took information and will notify staff that was scheduled for a visit this date. Family updated. SW to continue to follow and assist with discharge planning. Mariluz Jay, ACUTE CARE SURGEON, YVES
--- NOTE | 2018-11-04 13:37 | ED.DCSUM_ITS ---
- ER Visit Summary Date of Service: 11/04/18 Chief Complaint: [Possible stroke] History of Present Illness: The patient is a 78 F [presents to the emergency department via EMS with concern for possible stroke. Patient apparently was at dialysis with her daughter and while waiting in the waiting room she started to drool and have right-sided facial droop. She did not had slurred speech as well as left arm weakness per her daughter. On arrival the emergency department patient just states that she does not feel good but denies any headache. She denies any weakness currently. She has never had a stroke before. Patient does have a history of atrial fibrillation as well as chronic kidney disease and hypertension. Patient had been on Eliquis until a couple of weeks ago when she was taken off to have a procedure done on her right arm fistula and it had not since been restarted.] Physical Examination: [HEENT-PERRLA, EOMI. Cranial nerves II through XII grossly intact. TMs clear. Mucous membranes moist. No adenopathy. Cardiovascular-regular rate and rhythm without murmur or ectopy Lungs-clear to auscultation, chest wall stable without crepitus or subcu emphysema Abdomen-normoactive bowel sounds, soft, nontender, no rebound or rigidity, no peritoneal signs. Neuro wwna-rkeagd-devn and heel guthrie testing within normal limits, negative Romberg, negative pronator, fundi benign. NIH stroke scale initially was 0. There was no facial droop noted and no focal weakness. Extremities-intact ?4, normal range of motion, normal pulses, atraumatic] Test Results: [CT scan of the brain without contrast obtained showed atrophy otherwise nothing acute. EKG obtained showed a paced rhythm with a ventricular rate of 63 bpm. CBC with differential showed a white of 8.9, hemoglobin 12.5, hematocrit 40, placed 134. Chemistries unremarkable. BUN 34 and creatinine 5.04. Troponin was 0.6. CT a of the neck showed high-grade stenosis of both internal carotid arteries at the origin. CTA of the brain was unremarkable. Chest x-ray showed some mild CHF.] Emergency Department Course and Treatment: [Case was discussed with neurology on-call Dr. Gary who asked that we transfer patient to tertiary care facility for vascular evaluation. Patient would prefer to go [facility].] Treatment Plan: [Transfer to [facility]. I discussed case with [facility] hospitalist who accepted transfer of patient] Disposition: [Transfer] Impression: [TIA Bilateral carotid stenosis] This note was generated with [employer] dictation software. It may contain incorrect words, spelling, and punctuation that were not noted in review of the chart prior to signing ED Disposition - Plan for ED Patient: Chief Complaint: Neuro S/Sx Referrals: Mook Rain MD [Primary Care Provider] -
--- NOTE | 2018-11-04 13:40 | NURSING ---
[facility] 4W ROOM 437 REPORT [phone]
--- NOTE | 2018-11-04 14:05 | PCM.CONS.GEN ---
Problem List (1) TIA (transient ischemic attack) Status: Acute Reason for Consult Date of Consultation: 11/04/18 Reason for Consultation: TIA History of Present Illness: The patient is a 78 year old F with PMH HTN, HLD, DM, ESRD on HD, CAD s/p CABG, Afib not on AC, s/p pacer, PVD, COPD admitted with slurred speech and left arm weakness. Per daughter patient was taken for HD this morning (11/04/18) when she had acute onset slurred speech, with facial droop and left arm weakness, left arm became limp per daughter and the whole event lasted for about 5-10 mins. At present patient is at her baseline, denies any speech disturbances, BAUER, dizziness, focal motor weakness, sensory loss, visual disturbances. NIHSS in the ED was 0. Per daughter she was on Eliquis which was stopped about a month ago for some surgery and she was never restarted. Patient lives with her daughter, uses walker to ambulate, denies any frequent falls, does need assistance for her ADLS. CT head done in the ED reported nothing acute, CTA head/neck reported to show b/l ICA severe high grade stenosis with near complete occlusion. [] Past Medical History Past Medical History (Chronic Problems): Chronic Problems (Last Updated 06/16/18 @ 10:57 by Arline Galindo) Hx of atrioventricular node ablation (Chronic 12/19/14) AV node RFA X2 noriega per report;Subsequent implant of single chamber ICD per Dr. Loya @ [facility], [place] manager 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 (Chronic) Atherosclerotic heart disease of torres martinez coronary artery without angina pectoris (Chronic) Septal Myectomy and CABG X 2 with Left internal thoracic artery to the LAD, and reversed SVG of the PDA per Dr. Cheung @ [facility]. Also subsequent PCI's :PCI X 6 to RCA in 2013; PCI X 3 in 2014: reports not available but referenced in Dr. Saunders's office visit dated 05/24/2018 History of ventricular septal myectomy (Chronic 07/18/04) Septal Myectomy and CABG X 2 with Left internal thoracic artery to the LAD, and reversed SVG of the PDA per Dr. Cheung @ [facility] S/P CABG x 2 (Chronic 07/18/04) Septal Myectomy and CABG X 2 with Left internal thoracic artery to the LAD, and reversed SVG of the PDA per Dr. Cheung @ [facility] Hypertension (Chronic) Hyperlipidemia (Chronic) Type 2 diabetes mellitus (Chronic) COPD (chronic obstructive pulmonary disease) (Chronic) Chronic hypoxemic respiratory failure (Chronic) Atrial fibrillation (Chronic) 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 12/11/16) Initial single chamber ICD implant was 12/19/[address] Loya @ [facility] [place]. S/P EP/RFA; subsequent upgrade to combination pacer/ICD implant 12/11/16 [facility] VR [id number] End stage renal disease (Chronic) Diabetic neuropathy (Chronic) Peripheral vascular disease (Chronic) Venous insufficiency of both lower extremities (Chronic) Congestive heart failure (Chronic) History of PTCA (Chronic) PCI X 6 to RCA in 2013; PCI X 3 in 2014: reports not available but referenced in Dr. Saunders's office visit dated 05/24/2018 Medical History: Medical History (Last Reviewed 06/14/18 @ 10:42 by Arline Galindo) manager 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 (Chronic) Z79.01 Atherosclerotic heart disease of torres martinez coronary artery without angina pectoris (Chronic) I25.10 Septal Myectomy and CABG X 2 with Left internal thoracic artery to the LAD, and reversed SVG of the PDA per Dr. Cheung @ [facility]. Also subsequent PCI's :PCI X 6 to RCA in 2013; PCI X 3 in 2014: reports not available but referenced in Dr. Saunders's office visit dated 05/24/2018 Hypertension (Chronic) I10 Hyperlipidemia (Chronic) E78.5 Type 2 diabetes mellitus (Chronic) E11.9 COPD (chronic obstructive pulmonary disease) (Chronic) J44.9 Chronic hypoxemic respiratory failure (Chronic) J96.11 Atrial fibrillation (Chronic) I48.91 End stage renal disease (Chronic) N18.6 Diabetic neuropathy (Chronic) E11.40 Peripheral vascular disease (Chronic) I73.9 Venous insufficiency of both lower extremities (Chronic) I87.2 Congestive heart failure (Chronic) I50.9 Allergies latex Allergy (Verified 11/04/18 13:23) Anaphylaxis meperidine [From Demerol] Allergy (Verified 11/04/18 13:23) Hives Penicillins Allergy (Verified 11/04/18 13:23) Hives Tetracyclines Allergy (Verified 11/04/18 13:23) Hives aspirin Adverse Reaction (Verified 11/04/18 13:23) Unknown atorvastatin Adverse Reaction (Verified 11/04/18 13:23) Unknown codeine Adverse Reaction (Verified 11/04/18 13:23) Unknown hydromorphone [From Dilaudid] Adverse Reaction (Verified 11/04/18 13:23) Unknown pentazocine Adverse Reaction (Verified 11/04/18 13:23) Unknown pioglitazone Adverse Reaction (Verified 11/04/18 13:23) Unknown propoxyphene Adverse Reaction (Verified 11/04/18 13:23) Unknown sulfamethoxazole [From Bactrim] Adverse Reaction (Verified 11/04/18 13:23) Unknown trimethoprim [From Bactrim] Adverse Reaction (Verified 11/04/18 13:23) Unknown chloroprep Allergy (Uncoded 11/04/18 13:23) Unknown Home Medications: Ambulatory Orders Medication Instructions Recorded Amiodarone HCl 200 mg PO DAILY 05/11/18 Bumetanide [Bumex] 2.5 mg PO DAILY 11/04/18 Calcium Acetate 667 mg PO DAILY 11/04/18 Insulin Aspart [Novolog Flexpen units SC TIDCM 11/04/18 ([facility])] Insulin Glargine,Hum.rec.anlog 50 unit SC QHS 11/04/18 [Lantus] Ipratropium/Albuterol Sulfate 3 ml INHALATION Q4H.RT 11/04/18 [Duoneb] Metoclopramide [Reglan] 10 mg PO DAILY 11/04/18 Nitroglycerin [Nitrostat] 0.4 mg SUBLINGUAL Q5M PRN 11/04/18 Omeprazole 20 mg PO DAILY 11/04/18 Ondansetron [Zofran Odt] 4 mg PO Q8H PRN PRN 11/04/18 Pregabalin [Lyrica] 25 mg PO BID 11/04/18 Senna [Senokot] 1 tablet PO DAILY 11/04/18 traZODone [Desyrel] 100 mg PO DAILY 11/04/18 Surgical History: Surgical History (Last Updated 06/16/18 @ 10:57 by Arline Galindo) Hx of atrioventricular node ablation (Chronic) Onset Date: 12/19/14 Z98.890 AV node RFA X2 noriega per report;Subsequent implant of single chamber ICD per Dr. Loya @ [facility], [place] History of ventricular septal myectomy (Chronic) Onset Date: 07/18/04 Z98.890 Septal Myectomy and CABG X 2 with Left internal thoracic artery to the LAD, and reversed SVG of the PDA per Dr. Cheung @ [facility] S/P CABG x 2 (Chronic) Onset Date: 07/18/04 Z95.1 Septal Myectomy and CABG X 2 with Left internal thoracic artery to the LAD, and reversed SVG of the PDA per Dr. Cheung @ [facility] 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) Onset Date: 12/11/16 Z95.810 Initial single chamber ICD implant was 12/19/[address] Loya @ [facility] [place]. S/P EP/RFA; subsequent upgrade to combination pacer/ICD implant 12/11/16 [facility] VR [id number] Surgical History: angioplasty, cholecystectomy, coronary bypass surgery, hysterectomy, pacemaker implantation, - Lives: With Family Smoking Status: Former smoker Alcohol: None Drugs: None - *Family History Maternal Family History: Family History (Last Updated 06/16/18 @ 10:47 by Arline Galindo) Unknown No problems noted. History Items: Hypertension Paternal Family History: Family History (Last Updated 06/16/18 @ 10:47 by Arline Galindo) Unknown No problems noted. History Items: Heart Disease Review of Systems Constitutional: Reports: - - complete ROS negative except as documented in HPI Patient Problems: Active and Suspected Problems (Last Reviewed 06/14/18 @ 10:42 by Arline Galindo) Dermatitis of lower extremity (Acute) TIA (transient ischemic attack) (Acute) - Physical Exam General: Alert HEENT: Normocephalic Neck: Supple Lungs: Normal air movement Cardiovascular: Normal S1, Normal S2 Abdomen: Bowel Sounds Present Extremities: No cyanosis Skin: - - B/L LE reddness, has gauze dressing, per daughter has been told she has dermatitis Neurological: - - consious, alert, AoAx3, CN 2-12 grossly intact, no speech disturbances at present, power 5/5 both UE, moves both LE (but is at baseline per patient and daughter), denies any sensory loss, no cerebellar signs, Reflexes -B/L B/S/T/K/A, gait deferred, NIHSS 0 at present and mRS 3 at baseline Psych/Mental Status: Normal Affect Vital Signs Temp Pulse Resp BP Pulse Ox 97.8 F 67 18 124/62 H 95 11/04/18 11:02 11/04/18 13:32 11/04/18 13:32 11/04/18 13:32 11/04/18 13:00 Oxygen Flow Rate (L/min) 2.5 Oxygen Delivery Method Nasal Cannula Weight: 96.8 kg Body Mass Index (BMI) 32.4 Finger Stick Blood Glucose 149 Laboratory Tests Past 24 Hrs 11/04/18 11/04/18 11/04/18 11:00 11:00 11:00 WBC 8.9 RBC 3.93 L Hgb 12.5 Hct 40.5 MCV 103.1 H MCH 31.8 MCHC 30.9 L RDW 15.4 H RDW Differential 57.6 H Plt Count 134 L MPV 9.5 Immature Gran % (Auto) 0.100 Neut % (Auto) 70.4 H Lymph % (Auto) 16.6 L [place] % (Auto) 10.0 Eos % (Auto) 2.6 Baso % (Auto) 0.3 Absolute Neuts (auto) 6.3 Absolute Lymphs (auto) 1.47 Total Counted Not Reportable PT 13.7 INR 1.1 APTT 28.7 Sodium 138 Potassium 3.8 Chloride 98 Carbon Dioxide 32.0 Anion Gap 8 BUN 34 H Creatinine 5.04 H Estim Creat Clear Calc 9.43 Est GFR (MDRD) Af Amer 11 L Est GFR (MDRD) Non-Af 9 L BUN/Creatinine Ratio 6.7 L Glucose 158 H Calcium 8.6 Troponin I 0.565 H POC Glucose 11/04/18 10:52 POC Glucose 149 H Assessment/Plan All Active Problems (Last Reviewed 06/14/18 @ 10:42 by Arline Galindo) Dermatitis of lower extremity (Acute) TIA (transient ischemic attack) (Acute) NSTEMI (non-ST elevated myocardial infarction) (Acute 05/11/18) The patient is a 78 year old F with PMH HTN, HLD, DM, ESRD on HD, CAD s/p CABG, Afib not on AC, s/p pacer, PVD, COPD admitted with slurred speech and left arm weakness. Per daughter patient was taken for HD this morning (11/04/18) when she had acute onset slurred speech, with facial droop and left arm weakness, left arm became limp per daughter and the whole event lasted for about 5-10 mins. At present patient is at her baseline, denies any speech disturbances, BAUER, dizziness, focal motor weakness, sensory loss, visual disturbances. NIHSS in the ED was 0. Per daughter she was on Eliquis which was stopped about a month ago for some surgery and she was never restarted. Patient lives with her daughter, uses walker to ambulate, denies any frequent falls, does need assistance for her ADLS. CT head done in the ED reported nothing acute, CTA head/neck reported to show b/l ICA severe high grade stenosis with near complete occlusion. Impression Possible TIA Severe ICA stenosis bilaterally Plan -Check repeat CT head in 24 hrs -ASA 81 mg PO once daily if no contraindication -Eliquis 2.5 mg PO BID if no contraindication. Bleeding risks discussed. Patient should be on Coumadin given the renal failure but per patient she was on Coumadin in the past and was bleeding a lot. hence was changed to Eliquis which per patient she has tolerated well but has been off for a month. -Lipitor 40 mg PO q hs -Vascular surgery consult MALIHA for possible CEA. Discussed with ED admitting physician and patient might need to be transferred for further management for her high grade severe carotid stenosis given her multiple comorbidities and complexity of current medical situation. -Nephrology consult for HD, post CTA -Check LDL, Hba1c, and TTE -Stroke risk factors discussed and stroke education provided -Fall precautions -Permissive HTN for 24 hrs. Avoid hypotension -PT/OT and ST -GI/DVT prophylaxis -Further medical management per hospitalist and ED team -Neurology follow up as outpatient in 4 weeks -Please call with questions if any -Thank you for allowing us to participate in patient's care and management Code Visit Inpatient E&M: 52867 Init Hosp L3
--- NOTE | 2018-11-04 14:11 | CON.PCM_ITS ---
Problem List (1) TIA (transient ischemic attack) Status: Acute Reason for Consult Date of Consultation: 11/04/18 Reason for Consultation: TIA History of Present Illness: The patient is a 78 year old F with PMH HTN, HLD, DM, ESRD on HD, CAD s/p CABG, Afib not on AC, s/p pacer, PVD, COPD admitted with slurred speech and left arm weakness. Per daughter patient was taken for HD this morning (11/04/18) when she had acute onset slurred speech, with facial droop and left arm weakness, left arm became limp per daughter and the whole event lasted for about 5-10 mins. At present patient is at her baseline, denies any speech disturbances, BAUER, dizziness, focal motor weakness, sensory loss, visual disturbances. NIHSS in the ED was 0. Per daughter she was on Eliquis which was stopped about a month ago for some surgery and she was never restarted. Patient lives with her daughter, uses walker to ambulate, denies any frequent falls, does need assistance for her ADLS. CT head done in the ED reported nothing acute, CTA head/neck reported to show b/l ICA severe high grade stenosis with near complete occlusion. [] Past Medical History Past Medical History (Chronic Problems): Chronic Problems (Last Updated 06/16/18 @ 10:57 by Arline Galindo) Hx of atrioventricular node ablation (Chronic 12/19/14) AV node RFA X2 noriega per report;Subsequent implant of single chamber ICD per Dr. 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 Cheung @ [facility]. Also subsequent PCI's :PCI X 6 to RCA in 2013; PCI X 3 in 2014: reports not magdalena ilable but referenced in Dr. Saunders's office visit dated 05/24/2018 History of ventricular septal myectomy (Chronic 07/18/04) Septal Myectomy and CABG X 2 with Left internal thoracic artery to the LAD, and reversed SVG of the PDA per Dr. Cheung @ [facility] S/P CABG x 2 (Chronic 07/18/04) Septal Myectomy and CABG X 2 with Left internal thoracic artery to the LAD, and reversed SVG of the PDA per Dr. Cheung @ [facility] Hypertension (Chronic) Hyperlipidemia (Chronic) Type 2 diabetes mellitus (Chronic) COPD (chronic obstructive pulmonary disease) (Chronic) Chronic hypoxemic respiratory failure (Chronic) Atrial fibrillation (Chronic) 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 12/11/16) Initial single chamber ICD implant was 12/19/[address] Loya @ [facility] [place]. S/P EP/RFA; subsequent upgrade to combination pacer/ICD implant 12/11/16 [employer] VR [id number] End stage renal disease (Chronic) Diabetic neuropathy (Chronic) Peripheral vascular disease (Chronic) Venous insufficiency of both lower extremities (Chronic) Congestive heart failure (Chronic) History of PTCA (Chronic) PCI X 6 to RCA in 2013; PCI X 3 in 2014: reports not available but referenced in Dr. Saunders's office visit dated 05/24/2018 Medical History: Medical History (Last Reviewed 06/14/18 @ 10:42 by Arline Galindo) jail 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 (Chronic) Z79.01 Atherosclerotic heart disease of [place] de[place]' coronary artery without angina pectoris (Chronic) I25.10 Septal Myectomy and CABG X 2 with Left internal thoracic artery to the LAD, and reversed SVG of the PDA per Dr. Cheung @ [facility]. Also subsequent PCI's :PCI X 6 to RCA in 2013; PCI X 3 in 2014: reports not available but referenced in Dr. Saunders's office visit dated 05/24/2018 Hypertension (Chronic) I10 Hyperlipidemia (Chronic) E78.5 Type 2 diabetes mellitus (Chronic) E11.9 COPD (chronic obstructive pulmonary disease) (Chronic) J44.9 Chronic hypoxemic respiratory failure (Chronic) J96.11 Atrial fibrillation (Chronic) I48.91 End stage renal disease (Chronic) N18.6 Diabetic neuropathy (Chronic) E11.40 Peripheral vascular disease (Chronic) I73.9 Venous insufficiency of both lower extremities (Chronic) I87.2 Congestive heart failure (Chronic) I50.9 Allergies latex Allergy (Verified 11/04/18 13:23) Anaphylaxis meperidine [From Demerol] Allergy (Verified 11/04/18 13:23) Hives Penicillins Allergy (Verified 11/04/18 13:23) Hives Tetracyclines Allergy (Verified 11/04/18 13:23) Hives aspirin Adverse Reaction (Verified 11/04/18 13:23) Unknown atorvastatin Adverse Reaction (Verified 11/04/18 13:23) Unknown codeine Adverse Reaction (Verified 11/04/18 13:23) Unknown hydromorphone [From Dilaudid] Adverse Reaction (Verified 11/04/18 13:23) Unknown pentazocine Adverse Reaction (Verified 11/04/18 13:23) Unknown pioglitazone Adverse Reaction (Verified 11/04/18 13:23) Unknown propoxyphene Adverse Reaction (Verified 11/04/18 13:23) Unknown sulfamethoxazole [From Bactrim] Adverse Reaction (Verified 11/04/18 13:23) Unknown trimethoprim [From Bactrim] Adverse Reaction (Verified 11/04/18 13:23) Unknown chloroprep Allergy (Uncoded 11/04/18 13:23) Unknown Home Medications: Ambulatory Orders Medication Instructions Recorded Amiodarone HCl 200 mg PO DAILY 05/11/18 Bumetanide [Bumex] 2.5 mg PO DAILY 11/04/18 Calcium Acetate 667 mg PO DAILY 11/04/18 Insulin Aspart [Novolog Flexpen units SC TIDCM 11/04/18 (BK)] Insulin Glargine,Hum.rec.anlog 50 unit SC QHS 11/04/18 [Lantus] Ipratropium/Albuterol Sulfate 3 ml INHALATION Q4H.RT 11/04/18 [Duoneb] Metoclopramide [Reglan] 10 mg PO DAILY 11/04/18 Nitroglycerin [Nitrostat] 0.4 mg SUBLINGUAL Q5M PRN 11/04/18 Omeprazole 20 mg PO DAILY 11/04/18 Ondansetron [Zofran Odt] 4 mg PO Q8H PRN PRN 11/04/18 Pregabalin [Lyrica] 25 mg PO BID 11/04/18 Senna [Senokot] 1 tablet PO DAILY 11/04/18 traZODone [Desyrel] 100 mg PO DAILY 11/04/18 Surgical History: Surgical History (Last Updated 06/16/18 @ 10:57 by Arline Galindo) Hx of atrioventricular node ablation (Chronic) Onset Date: 12/19/14 Z98.890 AV node RFA X2 noriega per report;Subsequent implant of single chamber ICD per Dr. Loya @ [facility], [place] History of ventricular septal myectomy (Chronic) Onset Date: 07/18/04 Z98.890 Septal Myectomy and CABG X 2 with Left internal thoracic artery to the LAD, and reversed SVG of the PDA per Dr. Cheung @ [facility] S/P CABG x 2 (Chronic) Onset Date: 07/18/04 Z95.1 Septal Myectomy and CABG X 2 with Left internal thoracic artery to the LAD, and reversed SVG of the PDA per Dr. Cheung @ [facility] 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) Onset Date: 12/11/16 Z95.810 Initial single chamber ICD implant was 12/19/[address] Loya @ [facility] [place]. S/P EP/RFA; subsequent upgrade to combination pacer/ICD implant 12/11/16 [employer] VR [id number] Surgical History: angioplasty, cholecystectomy, coronary bypass surgery, hysterectomy, pacemaker implantation, - Lives: With Family Smoking Status: Former smoker Alcohol: None Drugs: None - *Family History Maternal Family History: Family History (Last Updated 06/16/18 @ 10:47 by Arline Galindo) Unknown No problems noted. History Items: Hypertension Paternal Family History: Family History (Last Updated 06/16/18 @ 10:47 by Arline Galindo) Unknown No problems noted. History Items: Heart Disease Review of Systems Constitutional: Reports: - - complete ROS negative except as documented in HPI Patient Problems: Active and Suspected Problems (Last Reviewed 06/14/18 @ 10:42 by Arline Galindo) Dermatitis of lower extremity (Acute) TIA (transient ischemic attack) (Acute) - Physical Exam General: Alert HEENT: Normocephalic Neck: Supple Lungs: Normal air movement Cardiovascular: Normal S1, Normal S2 Abdomen: Bowel Sounds Present Extremities: No cyanosis Skin: - - B/L LE reddness, has gauze dressing, per daughter has been told she has dermatitis Neurological: - - consious, alert, AoAx3, CN 2-12 grossly intact, no speech disturbances at present, power 5/5 both UE, moves both LE (but is at baseline per patient and daughter), denies any sensory loss, no cerebellar signs, Reflexes -B/L B/S/T/K/A, gait deferred, NIHSS 0 at present and mRS 3 at baseline Psych/Mental Status: Normal Affect Vital Signs Temp Pulse Resp BP Pulse Ox 97.8 F 67 18 124/62 H 95 11/04/18 11:02 11/04/18 13:32 11/04/18 13:32 11/04/18 13:32 11/04/18 13:00 Oxygen Flow Rate (L/min) 2.5 Oxygen Delivery Method Nasal Cannula Weight: 96.8 kg Body Mass Index (BMI) 32.4 Finger Stick Blood Glucose 149 Laboratory Tests Past 24 Hrs 11/04/18 11/04/18 11/04/18 11:00 11:00 11:00 WBC 8.9 RBC 3.93 L Hgb 12.5 Hct 40.5 MCV 103.1 H MCH 31.8 MCHC 30.9 L RDW 15.4 H RDW Differential 57.6 H Plt Count 134 L MPV 9.5 Immature Gran % (Auto) 0.100 Neut % (Auto) 70.4 H Lymph % (Auto) 16.6 L [place] % (Auto) 10.0 Eos % (Auto) 2.6 Baso % (Auto) 0.3 Absolute Neuts (auto) 6.3 Absolute Lymphs (auto) 1.47 Total Counted Not Reportable PT 13.7 INR 1.1 APTT 28.7 Sodium 138 Potassium 3.8 Chloride 98 Carbon Dioxide 32.0 Anion Gap 8 BUN 34 H Creatinine 5.04 H Estim Creat Clear Calc 9.43 Est GFR (MDRD) Af Amer 11 L Est GFR (MDRD) Non-Af 9 L BUN/Creatinine Ratio 6.7 L Glucose 158 H Calcium 8.6 Troponin I 0.565 H POC Glucose 11/04/18 10:52 POC Glucose 149 H Assessment/Plan All Active Problems (Last Reviewed 06/14/18 @ 10:42 by Arline Galindo) Dermatitis of lower extremity (Acute) TIA (transient ischemic attack) (Acute) NSTEMI (non-ST elevated myocardial infarction) (Acute 05/11/18) The patient is a 78 year old F with PMH HTN, HLD, DM, ESRD on HD, CAD s/p CABG, Afib not on AC, s/p pacer, PVD, COPD admitted with slurred speech and left arm weakness. Per daughter patient was taken for HD this morning (11/04/18) when she had acute onset slurred speech, with facial droop and left arm weakness, left arm became limp per daughter and the whole event lasted for about 5-10 mins. At present patient is at her baseline, denies any speech disturbances, BAUER, dizziness, focal motor weakness, sensory loss, visual disturbances. NIHSS in the ED was 0. Per daughter she was on Eliquis which was stopped about a month ago for some surgery and she was never restarted. Patient lives with her daughter, uses walker to ambulate, denies any frequent falls, does need assistance for her ADLS. CT head done in the ED reported nothing acute, CTA head/neck reported to show b/l ICA severe high grade stenosis with near complete occlusion. Impression Possible TIA Severe ICA stenosis bilaterally Plan -Check repeat CT head in 24 hrs -ASA 81 mg PO once daily if no contraindication -Eliquis 2.5 mg PO BID if no contraindication. Bleeding risks discussed. Patient should be on Coumadin given the renal failure but per patient she was on Coumadin in the past and was bleeding a lot. hence was changed to Eliquis which per patient she has tolerated well but has been off for a month. -Lipitor 40 mg PO q hs -Vascular surgery consult MALIHA for possible CEA. Discussed with ED admitting physician and patient might need to be transferred for further management for her high grade severe carotid stenosis given her multiple comorbidities and complexity of current medical situation. -Nephrology consult for HD, post CTA -Check LDL, Hba1c, and TTE -Stroke risk factors discussed and stroke education provided -Fall precautions -Permissive HTN for 24 hrs. Avoid hypotension -PT/OT and ST -GI/DVT prophylaxis -Further medical management per hospitalist and ED team -Neurology follow up as outpatient in 4 weeks -Please call with questions if any -Thank you for allowing us to participate in patient's care and management Code Visit Inpatient E&M: [id number] Init Hosp L3
[2018-11-04] MEDS: proMETHazine 25 MG/ML Syringe 12.5 MG IV (14:36)
--- NOTE | 2018-11-04 14:36 | NURSING ---
CALLED [facility]. ETA IS 20 MIN
--- OUTSIDE RECORDS SUMMARY | 2019-01-08 19:43 | XMS RPT_ITS ---
:1940 Author Organization OHIP Support Name Relationship Address Phone ISACC SOLIMANIA Unavailable [address] + [place] [address] R Unavailable Unavailable Unavailable Jourdan, Helga Unavailable [address] + [place] [address] R Unavailable Unavailable Unavailable Jourdan Andujar Unavailable Unavailable + JOURDAN, HELGA Unavailable [address] + [place] [address] R Unavailable Unavailable Unavailable JOURDAN, HELGA Unavailable [address] + [place] [address] R Unavailable Unavailable Unavailable JOURDAN, HELGA Unavailable [address] + [place] [address] R Unavailable Unavailable Unavailable JOURDAN, HELGA Unavailable [address] + [place] [address] R Unavailable Unavailable Unavailable JOURDAN, HELGA Unavailable [address] + [place] [address] R Unavailable Unavailable Unavailable JOURDAN, HELGA Unavailable [address] + [place] [address] R Unavailable Unavailable Unavailable JOURDAN, HELGA Unavailable [address] + [place] [address] R Unavailable Unavailable Unavailable JOURDAN, HELGA Unavailable [address] + [place] [address] R Unavailable Unavailable Unavailable JOURDAN, HELGA Unavailable [address] + [place] [address] R Unavailable Unavailable Unavailable JOURDAN, HELGA Unavailable [address] + [place] [address] R Unavailable Unavailable Unavailable JOURDAN, HELGA Unavailable [address] + [place] [address] R Unavailable Unavailable Unavailable JOURDAN, HELGA Unavailable [address] + [place] [address] R Unavailable Unavailable Unavailable JOURDAN, HELGA Unavailable [address] + [place] [address] R Unavailable Unavailable Unavailable JOURDAN HELGA Unavailable [address] + [place] [address] R Unavailable Unavailable Unavailable JOURDAN HELGA Unavailable [address] + [place] [address] R Unavailable Unavailable Unavailable JOURDAN HELGA Unavailable [address] + [place] [address] R Unavailable Unavailable Unavailable JOURDANMIRTA COERICA Unavailable [address] + [place] [address] R Unavailable Unavailable Unavailable JOURDAN, HELGA Unavailable [address] + [place] [address] R Unavailable Unavailable Unavailable Jourdan Andujar Unavailable Unavailable + MIRTA SOLIMANRICA Unavailable [address] + [place] [address] R Unavailable Unavailable Unavailable JOURDAN, HELGA Unavailable [address] + [place] [address] R Unavailable Unavailable Unavailable Care Team Providers Name Role Phone AREN CARDONA Attending Unavailable AREN CARDONA Referring Unavailable LUCRECIA, GLORIA A Admitting Unavailable CLAY GARCIA Consulting Unavailable CESAR, PEYMAN Attending Unavailable AREN CARDONA Attending Unavailable AREN CARDONA Referring Unavailable CESAR, PEYMAN Admitting Unavailable PEYMAN GUERRERO Attending Unavailable MARA HERNANDEZ Consulting Unavailable AREN CARDONA Attending Unavailable AREN CARDONA Referring Unavailable RUSSELL PEDERSEN Admitting Unavailable MICHA MORENO Attending Unavailable DINA BOWMAN Consulting Unavailable MARA HERNANDEZ Referring Unavailable MARA HERNANDEZ Referring Unavailable MARA HERNANDEZ Referring Unavailable MARA HERNANDEZ Referring Unavailable LUCRECIA, GLORIA A Admitting Unavailable MICHA MORENO Attending Unavailable MICHAEL HOGAN Consulting Unavailable JOSE C BETANCOURT Attending Unavailable ENE HUBBARD Referring Unavailable HOGAN, MICHAEL D Referring Unavailable HOGAN, MICHAEL D Admitting Unavailable HOGAN, MICHAEL D Attending Unavailable HOGAN, MICHAEL D Referring Unavailable HOGAN, MICHAEL D Admitting Unavailable HOGAN, MICHAEL D Attending Unavailable COURSONENE Referring Unavailable HOGAN, MICHAEL D Admitting Unavailable SALIMA MARINO JR Attending Unavailable MALENA BRAY Consulting Unavailable AREN CARDONA Attending Unavailable CHIP, AREN Referring Unavailable BURSLEY, CHRISTOPHER Primary Care Unavailable AREN CARDONA Attending Unavailable CHIP, AREN Referring Unavailable BURSLEY, CHRISTOPHER Primary Care Unavailable AREN CARDONA Attending Unavailable CHIP, AREN Referring Unavailable BURSLEY, CHRISTOPHER Primary Care Unavailable AREN CARDONA Attending Unavailable CHIP, AREN Referring Unavailable BURSLEY, CHRISTOPHER Primary Care Unavailable THALIAON, MARIANA Referring Unavailable BURSLEY, CHRISTOPHER Primary Care Unavailable THALIAON, MARIANA Referring Unavailable BURSLEY, CHRISTOPHER Primary Care Unavailable Geovanny Reardon Attending Unavailable PROVIDER, UNKNOWN Referring Unavailable Bursley, Christopher Primary Care Unavailable PROVIDER, UNKNOWN Referring Unavailable Bursley, Christopher Primary Care Unavailable NORAH WEN Attending Unavailable DINA CLAUDIO Attending Unavailable ADRIEL PRINGLE (ELÍAS) Referring Unavailable HOGAN, MICHAEL D Referring Unavailable TESTRAKEJOSE C Attending Unavailable TESTRAKEJOSE C Referring Unavailable SEANBURYLAN Raya III Attending Unavailable HOGAN, MICHAEL D Referring Unavailable JAMESON KAMARA) Referring Unavailable JAMESON KAMARA) Referring Unavailable TESTRAKEJOSE C Attending Unavailable TESTRAJOSE C ARELLANO Referring Unavailable SEFERINO ALBERTS) Attending Unavailable JAMESON KAMARA) Referring Unavailable DINA CLAUDIO Attending Unavailable ADRIEL PRINGLE (ELÍAS) Referring Unavailable ADRIEL PRINGLE (ELÍAS) Referring Unavailable JAMESON KAMARA) Referring Unavailable ADRIEL PRINGLE (ELÍAS) Attending Unavailable JAMESON KAMARA) Referring Unavailable HOGAN, MICHAEL D Attending Unavailable HOGAN, MICHAEL D Referring Unavailable TESTRAKE, JOSE C Referring Unavailable JAMESON KAMARA) Attending Unavailable JAMESNO KAMARA) Referring Unavailable BURSLEY, JAMESON ADAMS) Referring Unavailable BURSLEY, JAMESON ADAMS) Attending Unavailable BURSLEYJAMESON) Referring Unavailable CHIP, AREN E Referring Unavailable TESTRAKE, JOSE C Attending Unavailable TESTRAKE, JOSE C Referring Unavailable TESTRAKE, JOSE C Attending Unavailable TESTRAKE, JOSE C Referring Unavailable BURSLEY, JAMESON ADAMS) Referring Unavailable BURSLEY, JAMESON ADAMS) Attending Unavailable DNONELL CRUZ Attending Unavailable LUCILLE, MANDY (PA) Referring Unavailable HOGAN, MICHAEL D Referring Unavailable RUTTI, ADRIEL (CHIEF MECHANICAL ENGINEER) Attending Unavailable BURSLEYJAMESON) Attending Unavailable BURSLEYJAMESON) Referring Unavailable HOGAN, MICHAEL D Attending Unavailable BURSLEY, JAMESON ADAMS) Referring Unavailable BURSLEY, JAMESON ADAMS) Referring Unavailable CHIP, AREN E Attending Unavailable CHIP, AREN E Referring Unavailable BURSLEY, JAMESON ADAMS) Referring Unavailable BURSLEY, JAMESON ADAMS) Attending Unavailable ISABELA LADD Referring Unavailable RUTTI, ADRIEL (CHIEF MECHANICAL ENGINEER) Referring Unavailable RUTTI, ADRIEL (CHIEF MECHANICAL ENGINEER) Referring Unavailable RUTTI, ADRIEL (CHIEF MECHANICAL ENGINEER) Referring Unavailable RUTTI, ADRIEL (CHIEF MECHANICAL ENGINEER) Attending Unavailable HOGAN, MICHAEL D Referring Unavailable HOGAN, MICHAEL D Referring Unavailable HOGAN, MICHAEL D Referring Unavailable LUCILLE, MANDY (PA) Attending Unavailable MOVENS, SEFERINO (PA) Referring Unavailable MOVENS, SEFERINO (PA) Referring Unavailable MOVENS, SEFERINO (PA) Referring Unavailable MOVENS, SEFERINO (PA) Referring Unavailable CHIP, AREN E Referring Unavailable BURSLEY, JAMESON ADAMS) Referring Unavailable BURSLEY, JAMESON ADAMS) Attending Unavailable BURSJAMESON GALINDO) Referring Unavailable TESTRAKE, JOSE C Attending Unavailable TESTRAKE, JOSE C Referring Unavailable BURSLEY, JAMESON ADAMS) Referring Unavailable LUCILLE, MANDY (GORGE) Attending Unavailable LUCILLE, MANDY (PA) Referring Unavailable BURSJAMESON GALINDO) Referring Unavailable BURSJAMESON GALINDO) Referring Unavailable BURSJAMESON GALINDO) Attending Unavailable JAMESON KAMARA) Referring Unavailable MICHAEL HOGAN Attending Unavailable JAMESON KAMARA) Referring Unavailable AREN CARDONA Referring Unavailable MANDY ADKINS) Referring Unavailable MANYD ADKINS) Attending Unavailable ADRIEL PRINGLE (ELÍAS) Attending Unavailable TESTRAKEJOSE C Attending Unavailable TESTRAKE, JOSE C Referring Unavailable JAMESON KAMARA) Attending Unavailable JAMESON KAMARA) Referring Unavailable MICHAEL HOGAN Attending Unavailable MICHAEL HOGAN Referring Unavailable DINA CLAUDIO Attending Unavailable JAMESON KAMARA) Referring Unavailable JAMESON KAMARA) Attending Unavailable JAMESON KAMARA) Referring Unavailable TESTRAKE, JOSE C Attending Unavailable TESTRAKE, JOSE C Referring Unavailable AREN CARDONA Attending Unavailable MICHAEL CARDONANETH E Referring Unavailable JESI FOSTER (POLYSOMNOGRAPHIC TECHNICIAN) Attending Unavailable JAMESON KAMARA) Referring Unavailable TESTRAKE, JOSE C Attending Unavailable TESTRAKE, JOSE C Referring Unavailable Bursley, Mook Primary Care Unavailable Mandy Grajeda Attending Unavailable BakJonna clemetn Attending Unavailable Jonna Martin Referring Unavailable Bursley, Mook Primary Care Unavailable Sementi, Kimberly Admitting Unavailable Bursley, Mook Primary Care Unavailable Moo Mackey Attending Unavailable Sheridan, Jayanikkikaviviane Consulting Unavailable Sementi, Kimberly Admitting Unavailable SementiLucianae Attending Unavailable Bursley, Mook Primary Care Unavailable Sementi, Kimberly Consulting Unavailable Bursley, Mook Primary Care Unavailable Wise, Luis Referring Unavailable Jopperi, Clemente Admitting Unavailable Jesse Hunter Consulting Unavailable Isabela Ladd Attending Unavailable Tanphaichitr, Natthavat Consulting Unavailable Dago Jiic Attending Unavailable Jopperi, Clemente Admitting Unavailable Wise, Luis Referring Unavailable Bursley, Mook Primary Care Unavailable Jesse Hunter Consulting Unavailable Tanphaichitr, Natthavat Consulting Unavailable Jopperi Clemente Consulting Unavailable Jopperi, Clemente Admitting Unavailable Jesse Hunter Attending Unavailable Wise, Luis Referring Unavailable Bursley, Mook Primary Care Unavailable Jesse Hunter Consulting Unavailable Tanphaichitr, Natthavat Consulting Unavailable Tereletsky, Isabela Consulting Unavailable Garrison, Clemente Admitting Unavailable Isabela Ladd Attending Unavailable Wise, Luis Referring Unavailable Bursley, Mook Primary Care Unavailable Jesse Hunter Consulting Unavailable Tanphaichitr, Natthavat Consulting Unavailable Tereletsky, Isabela Consulting Unavailable Yamiletheri, Clemente Admitting Unavailable Isabela Ladd Attending Unavailable Wise, Luis Referring Unavailable Bursley, Mook Primary Care Unavailable Jesse Hunter Consulting Unavailable Tanphaichitr, Natthavat Consulting Unavailable Tereletsky, Isabela Consulting Unavailable Bursley, Mook Primary Care Unavailable Mandy Grajeda Attending Unavailable Parker Cosby Attending Unavailable Parker Cosby Attending Unavailable Kimberly Mejia Referring Unavailable Jesse Hunter Attending Unavailable Koffi, Mook Referring Unavailable Ayde Butt Attending Unavailable Garrison, Clemente Referring Unavailable Ayde Butt Attending Unavailable Wise, Luis Referring Unavailable Dina Claudio Attending Unavailable Dina Claudio Referring Unavailable Manuelaley, Mook Primary Care Unavailable Dina Claudio Admitting Unavailable Parker Cosby Attending Unavailable Dina Claudio Referring Unavailable Isabela Young POLYSOMNOGRAPHIC TECHNICIAN-C Attending Unavailable Bursley, Mook Primary Care Unavailable Isabela Young POLYSOMNOGRAPHIC TECHNICIAN-C Attending Unavailable Bursley, Mook Primary Care Unavailable Isabela Young POLYSOMNOGRAPHIC TECHNICIAN-C Consulting Unavailable Bursley, Mook Primary Care Unavailable Marvel Cook Attending Unavailable Ayde Reyes Attending Unavailable Bursley, Mook Primary Care Unavailable Clay Brown Attending Unavailable PROBLEMS PROBLEMS DATE TYPE CONDITION / CODE ATTENDING STATUS SOURCE Active Unspecified intestinal NA Active [place] [address] obstruction, Clinic Main unspecified as to [place] partial versus complete Repository obstruction / K56.609(ICD-10) Active Epigastric pain / NA Active [place] [address] R10.13(ICD-10) Clinic Main [place] Repository Active End stage renal disease WON STEPHENSON, Active [place] [address] / N18.6(ICD-10) [facility] Other [place] [facility]ository Active Arteriovenous fistula, WON STEPHENSON, Active [place] [address] acquired / [facility] Other I77.0(ICD-10) [place] Repository Active Dependence on renal NA Active [place] 8 dialysis / Clinic Main Z99.2(ICD-10) [place] Repository Admitting Unknown / UNK(Unknown) NA Active [facility] 8 diagnosis Health System Repository Unknown I25.10 - [place], [place] Active [place] 8 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 / I25.10(ICD-10) Unknown 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[place], [place]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[place] 8 hypertrophic Community cardiomyopathy / Hospital I42.1(ICD-10) Repository Unknown Z95.1 - Presence of [place], [place] Active [place] 8 aortocoronary bypass Community graft / Z95.1(ICD-10) Hospital Repository Unknown Z95.810 - Presence of [place], [place] Active [place] 8 automatic (implantable) [facility] cardiac defibrillator / Hospital Z95.810(ICD-10) Repository Active Other fecal NA Active [place] 8 abnormalities / Clinic Main R19.5(ICD-10) [place] Rep[facility] Active Other fatigue / NA Active [place] 8 R53.83(ICD-10) Clinic Main [place] Repository Active Unknown / UNK(Unknown) YARY ADRIEL Active [place] 8 (CHIEF MECHANICAL ENGINEER) Clinic Main [place] Repository Active Blister (nonthermal), NA Active [place] 8 left lesser toe(s), Clinic Main initial encounter / [place] S90.425A(ICD-10) Repository Active Peripheral vascular NA Active [place] 8 disease, unspecified / Clinic Main I73.9(ICD-10) [place] Repository Active Asymptomatic menopausal NA Active [place] 8 state / Z78.0(ICD-10) Clinic Main [place] Repository Active Other acute HOGAN, Active [place] 8 postprocedural pain / MICHAEL D Clinic Other G89.18(ICD-10) [place] Repository Active Other specified NA Active [place] 8 symptoms and signs Clinic Other involving the [place] circulatory and Repository respiratory systems / R09.89(ICD-10) Active Encounter for screening NA Active [place] 8 for other disorder / Clinic Main Z13.89(ICD-10) [place] Repository Active Chronic respiratory NA Active [place] 8 failure with hypoxia / Clinic Other J96.11(ICD-10) [place] Repository Active Atherosclerotic heart NA Active [place] 8 disease of [place] Clinic Other 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 / Repository I25.10(ICD-10) Active Gastro-esophageal NA Active [place] 8 reflux disease without Clinic Other esophagitis / [place] K21.9(ICD-10) Repository Active Chronic obstructive NA Active [place] 8 pulmonary disease, Clinic Other unspecified / [place] J44.9(ICD-10) Repository Active Hyperlipidemia, NA Active [place] [facility] unspecified / Clinic Other E78.5(ICD-10) [place] Repository Active Pulmonary hypertension, NA Active [place] 8 unspecified / Clinic Other I27.20(ICD-10) [place] Repository Active Encounter for other NA Active [place] 8 preprocedural Clinic Other examination / [place] Z01.818(ICD-10) Repository Active Pain in right hip / NA Active [place] 8 M25.551(ICD-10) Clinic Main [place] Repository Active 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 Clinic Main / Z79.899(ICD-10) [place] Repository Unknown I13.2 - Hypertensive [place], Active [place] 8 heart and chronic [facility] kidney disease with Hospital heart failure and with Repository stage 5 chronic kidney disease, or end stage renal disease / I13.2(ICD-10) Unknown I50.22 - Chronic [place], Active [place] 8 systolic (congestive) [facility] heart failure / Hospital I50.22(ICD-10) Repository Unknown I21.4 - Non-ST [place], Active [place] 8 elevation (NSTEMI) [facility] myocardial infarction / Hospital I21.4(ICD-10) Repository Unknown I48.2 - Chronic atrial [place], Active [place] 8 fibrillation / [facility] I48.2(ICD-10) Hospital Repository Active Generalized abdominal NA Active [place] 8 pain / R10.84(ICD-10) Clinic Main [place] Repository Active Diarrhea, unspecified / NA Active [place] 8 R19.7(ICD-10) Clinic Main [place] Repository Unknown R07.9 - Chest pain, [place], [place] Active [place] [facility] unspecified / Community R07.9(ICD-10) Hospital Repository Unknown R94.31 - Abnormal [place], [place] Active [place] 8 electrocardiogram [ECG] Community [EKG] / R94.31(ICD-10) Hospital Repository Unknown I48.91 - Unspecified [place], [place] Active [place] 8 atrial fibrillation / Community I48.91(ICD-10) Hospital Repository Admitting Pneumonia, unspecified [facility] Active [facility] 8 Diagnosis organism / , [facility] J18.9(ICD-10) Repository Admitting Nosocomial condition / Ctefkohl-[facility] Active [facility] 8 Diagnosis Y95(ICD-10) , [facility] Repository Admitting Hypertensive chronic [facility] Active [facility] 8 Diagnosis kidney disease w stg , [facility] 1-4/unsp chr kdny / Repository I12.9(ICD-10) Admitting Type 2 diabetes [facility] 8 Diagnosis mellitus w diabetic , [facility] chronic kidney disease Repository / E11.22(ICD-10) Admitting End stage renal disease [facility] 8 Diagnosis / N18.6(ICD-10) , [facility] Repository Admitting Unspecified atrial Ctefkohl-[facility] Active [facility] 8 Diagnosis fibrillation / , [facility] I48.91(ICD-10) Repository Admitting Athscl heart disease of [facility] 8 Diagnosis [place] coronary artery , [facility] w/o ang pctrs / Repository I25.10(ICD-10) Admitting Chronic obstructive [facility] 8 Diagnosis pulmonary disease, , [facility] unspecified / Repository J44.9(ICD-10) Admitting Hyperlipidemia, Riefkohl-[facility] Active [place] [address] Diagnosis unspecified / , [facility] E78.5(ICD-10) Repository Admitting Presence of cardiac [place] [address] Diagnosis pacemaker / , [facility] Z95.0(ICD-10) Repository Admitting Dependence on renal [place] [address] Diagnosis dialysis / , [facility] Z99.2(ICD-10) Repository Admitting Dependence on [facility] [place] [address] Diagnosis supplemental oxygen / , [facility] Z99.81(ICD-10) Repository Admitting ferry terminal agent (current) use [place] [address] Diagnosis of anticoagulants / , [facility] Z79.01(ICD-10) Repository Admitting care home (current) use [place] [address] Diagnosis of insulin / , [facility] Z79.4(ICD-10) Repository Admitting Latex allergy status / [facility] Active [place] [address] Diagnosis Z91.040(ICD-10) , [facility] Repository Ad[facility] [place] [facility] [place] [address] Diagnosis penicillin / , [facility] Z88.0(ICD-10) Repository Admitting Allergy status to other [facility] [place] [address] Diagnosis antibiotic agents , [facility] status / Z88.1(ICD-10) Repository Admitting [facility] [place] [address] Diagnosis sulfonamides status / , [facility] Z88.2(ICD-10) Repository Admitting Allergy status to [facility] Active [place] [address] Diagnosis narcotic agent status / , [facility] Z88.5(ICD-10) Repository Admitting [place]ergy [place] [facility] [place] [address] Diagnosis analgesic agent status , [facility] / Z88.6(ICD-10) Repository Admitting Allergy status to oth [facility]iefkohl-[facility] Active [place] [address] Diagnosis drug/meds/biol subst , [facility] status / Z88.8(ICD-10) Repository Admitting Personal history of [facility]kohl-[facility] Active [place] [address] Diagnosis nicotine dependence / , [facility] Z87.891(ICD-10) Repository Admitting Chest pain, unspecified [facility]kohl-[facility] Active [place] [address] Diagnosis / R07.9(ICD-10) , [facility] Repository Active Chronic kidney disease, VROBEL, [place] [address] unspecified / JOSE C TERRY [facility] Other N18.9(ICD-10) [place] Rep[facility] Active [facility], [facility] [place] [address] [facility] G47.30(ICD-10) [place] Rep[facility] Active Essential (primary) JOSH [place] [address] hypertension / [facility] Other I10(ICD-10) [place] Repository Active Chronic kidney disease, JOSH [place] [address] stage 3 (moderate) / MICHA PAIGE [facility] Other N18.3(ICD-10) [place] Repository Active care home (current) use JOSH [place] [address] of insulin / [facility] Other Z79.4(ICD-10) [place] Repository Active Type 2 diabetes JOSH [place] [address] mellitus with diabetic [facility] Other chronic kidney disease [place] / E11.22(ICD-10) Repository Active Type 2 diabetes JOSH [place] [address] mellitus with MICHA PAIGE [facility] Other hyperglycemia / [place] E11.65(ICD-10) Repository Active Chest pain, unspecified [facility] [place] [address] / R07.9(ICD-10) [facility]E Clinic Other [place] Repository Active Unspecified atrial JOSH [place] [address] fibrillation / MICHA PAIGE Clinic Other I48.91(ICD-10) [place] Repository Active Presence of cardiac JOSH [place] [address] pacemaker / MICHA PAIGE Clinic Other Z95.0(ICD-10) [place] Repository Active Chronic combined [facility] systolic (congestive) [facility] PA[facility]E Clinic Other and diastolic [place] (congestive) heart Repository failure / I50.42(ICD-10) Active Dyspnea, unspecified / SCHMARIVEL Active [place] 8 R06.00(ICD-10) MICHA PAIGE Clinic Other [place] Repository Active Acute systolic SCHMARIVEL Active [place] 8 (congestive) heart MICHA PA[facility]E Clinic Other failure / [place] I50.21(ICD-10) Repository Active Acute kidney failure, SCHMARIVEL Active [place] [facility] unspecified / MICHA PAIGE Clinic Other N17.9(ICD-10) [place] Repository Active Acute respiratory SCHMARIVEL Active [place] 8 failure with hypoxia / MICHA PAIGE Clinic Other J96.01(ICD-10) [place] Repository Active Chronic respiratory [facility] [place] [facility] failure with MICHA PAIGE Clinic Other hypercapnia / [place] J96.12(ICD-10) Repository Active Obstructive sleep apnea JOSH [facility] 8 (adult) (pediatric) / MICHA PAIGE [facility] Other G47.33(ICD-10) [place] Repository Active Acute combined systolic SCHMARIVEL Active [place] 8 (congestive) and MICHA PAIGE Clinic Other diastolic (congestive) [place] heart failure / Repository I50.41(ICD-10) Active Palpitations / NA [place] [address] R00.2(ICD-10) Clinic Main [place] Repository Active Abnormal findings on NA [place] [address] diagnostic imaging of Clinic Other other parts of [place] digestive tract / Repository R93.3(ICD-10) Active Dysphagia, NA Active [place] [address] pharyngoesophageal Clinic Other phase / R13.14(ICD-10) [place] Repository Active Obstructive SCHMARIVEL Active [place] 8 hypertrophic MICHA PAIGE Clinic Other cardiomyopathy / [place] I42.1(ICD-10) Repository Active Abnormal levels of JOSH Active [place] 8 other serum enzymes / MICHA PAIGE Clinic Other R74.8(ICD-10) [place] Repository Active Hypo-osmolality and SCHMARIVEL Active [place] 8 hyponatremia / MICHA PAIGE Clinic Other E87.1(ICD-10) [place] Repository Active Hyperkalemia / SCHMARIVEL Active [place] 8 E87.5(ICD-10) MICHA PAIGE Clinic Other [place] Repository Active Diabetes mellitus due [facility] Active [place] 8 to underlying condition MICHA PAIGE Clinic Other with hyperglycemia / [place] E08.65(ICD-10) Repository Active Diabetes mellitus due [facility] Active [place] 8 to underlying condition [facility] Clinic Other with diabetic chronic [place] kidney disease / Repository E08.22(ICD-10) Active Acute on chronic [facility], Active [place] 8 combined systolic [facility] Clinic Other (congestive) and [place] diastolic (congestive) Repository heart failure / I50.43(ICD-10) Active Acute [facility] [place] 8 (congestive) heart [facility] Other failure / [place] I50.31(ICD-10) Repository Active [facility]oxemia / [facility] Active [place] 8 R09.02(ICD-10) MICHA PAIGE Clinic Other [place] Repository Unknown N18.3 - Chronic kidney Jonna Martin Active [place] 8 disease, stage 3 Community (moderate) / Hospital N18.3(ICD-10) Repository Active Frequency of NA Active [place] 8 micturition / Clinic Main R35.0(ICD-10) [place] Repository Active Chronic obstructive CESAR, PEYMAN Active [place] 8 pulmonary disease with Clinic Other (acute) exacerbation / [place] J44.1(ICD-10) Repository Active Acute and chronic CESAR, PEYMAN Active [place] 8 respiratory failure Clinic Other with hypoxia / [place] J96.21(ICD-10) Repository Active Pneumonia, unspecified CESAR, PEYMAN Active [place] 8 organism / Clinic Other J18.9(ICD-10) [place] Repository Active Disorder of arteries CESAR, PEYMAN Active [place] 8 and arterioles, Clinic Other unspecified / [place] I77.9(ICD-10) Repository Active Other nonspecific CESAR, PEYMAN Active [place] 8 abnormal finding of Clinic Other lung field / [place] R91.8(ICD-10) Repository Active Other obesity due to PEYMAN GUERRERO Active [place] 8 excess calories / Clinic Other E66.09(ICD-10) [place] Repository Active Body mass index (bmi) PEYMAN GUERRERO Active [place] 8 34.0-34.9, adult / Clinic Other Z68.34(ICD-10) [place] Repository Active Candidal stomatitis / PEYMAN GUERRERO Active [place] 8 B37.0(ICD-10) Clinic Other [place] Repository Active Biventricular heart NA Active [place] 8 failure / Clinic Main I50.82(ICD-10) [place] Repository Active Chronic systolic CHIP, Active [place] 8 (congestive) heart [facility] Clinic Other failure / [place] I50.22(ICD-10) Repository Active Paroxysmal atrial CHIP, Active [place] 8 fibrillation / [facility] Clinic Other I48.0(ICD-10) [place] Repository Active Shortness of breath / PEYMAN GUERRERO Active [place] 8 R06.02(ICD-10) Clinic Other [place] Repository Active Other pneumonia, CESARPEYMAN MCHUGH Active [place] 8 unspecified organism / Clinic Other J18.8(ICD-10) [place] Repository Active Heart failure, CESAR, PEYMAN Active [place] 8 unspecified / Clinic Other I50.9(ICD-10) [place] Repository Active Acute on chronic CESAR PEYMAN Active [place] 8 diastolic (congestive) Clinic Other heart failure / [place] I50.33(ICD-10) Repository Active Presence of automatic CESAR PEYMAN Active [place] 8 (implantable) cardiac Clinic Other defibrillator / [place] Z95.810(ICD-10) Repository Active Presence of CESAR, PEYMAN Active [place] 8 aortocoronary bypass Clinic Other graft / Z95.1(ICD-10) [place] Repository Active Presence of coronary CESAR, PEYMAN Active [place] 8 angioplasty implant and Clinic Other graft / Z95.5(ICD-10) [place] Repository Active Hyperglycemia, CESAR, PEYMAN Active [place] 8 unspecified / Clinic Other R73.9(ICD-10) [place] Repository Active Adverse effect of CESAR, PEYMAN Active [place] [address] glucocorticoids and Clinic Other synthetic analogues, [place] initial encounter / Repository T38.0X5A(ICD-10) Active Acute and chronic PEYMAN GUERRERO Active [place] 8 respiratory failure Clinic Other with hypercapnia / [place] J96.22(ICD-10) Repository Active Nicotine dependence, PEYMAN GUERRERO Active [place] 8 cigarettes, in Clinic Other remission / [place] F17.211(ICD-10) Repository Active Hypoglycemia, PEYMAN GUERRERO Active [place] 8 unspecified / Clinic Other E16.2(ICD-10) [place] Repository Active Ischemic cardiomyopathy CHIP, Active [place] [address] / I25.5(ICD-10) [facility] Clinic Other [place] Repository Active Chronic atrial CHIP, Active [place] [address] fibrillation / [facility] Clinic Other I48.2(ICD-10) [place] Repository Active Left bundle-branch CHIP, [place] [address] block, unspecified / [facility] Clinic Other I44.7(ICD-10) [place] Repository PROCEDURES PROCEDURES No Procedure Records FoundRESULTS RESULTS EMERGENCY DEPARTMENT Observed: 11/13/2018 Status: F Source: [place] SUMMARY 12:28 AM [facility] REPOSITORY [facility] Medical Records Department [address] [place] [address] Emergency Department Summary 11/12/181914 MR#: [id number] Acct: [id number] Name: LUZ BACA Rep #: [id number] : 1940 78 From: Clay Brown MD [...] couple of days ago back to a 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 without any intervention on her carotid arteries. [...] parietal stroke This note was generated with [employer] dictation software. It may contain incorrect words, [...] problems, contact your Primary Care Provider. Call [facility] ([phone]) or report to the closest Emergency Room. Call 911 if necessary. 11/13/18 0028 <Electronically signed by Clay Brown MD> Date Clay Brown MD Cosigner Signature (If Indicated): Date CC: Mook Kamara MD BEDSIDE GLUCOSE Collected: 11/12/2018 Status: F Source: [place] 4:45 PM [facility] REPOSITORY TYPE CODE TESTS RESULT OUT OF REFERENCE UNITS RANGE LAB L501.080 70-110 mg/dL High BEDSIDE GLU 128 Result Comment: MANAGEMENT OF PATIENT CARE PER NURSING PROTOCOL Performed By: #### L501.080 #### [facility] Point of Care [address] [facility] [place] [address] BRAIN/HEAD WITHOUT Observed: 11/12/2018 Status: F Source: [place] CONTRAST 4:22 PM [facility] REPOSITORY [facility] Imaging Services [address] [place] [address] Brain/Head without Contrast MR#: [id number] Acct: [id number] Name: LUZ BACA Rep #: [id number] : 1940 F 78 From: Christiano Israel MD PCP: Mook Kamara MD Status: REG ER Study: Brain/Head without Contrast Date of Exam: 11/12/18 Exam# [id number] Ordering Dr: Clay Brown MD ADDENDUM by [...] , CC: Mook Kamara MD; Clay Brown Top Lift Cutter: Signed CBC-COMPLETE BLOOD CNT Collected: 11/12/2018 Status: F Source: [place] NO DIFF 7:25 AM [facility] REPOSITORY TYPE CODE TESTS RESULT OUT OF [...] MPV 9.6 Performed By: #### L100.0500 #### [facility] [address] [place], [address] BASIC METABOLIC Collected: 11/12/2018 Status: F Source: [place] PROFILE (BMP) 7:25 AM [facility] REPOSITORY TYPE CODE TESTS RESULT OUT OF [...] GAP 6 Performed By: #### L500.2500 #### [facility] [address] [facility] [place], [address] CONSULTATION Observed: 11/11/2018 Status: F Source: [place] 1:49 PM [facility] REPOSITORY [facility] Medical Records Department [facility] [place] [address] Consultation 11/04/18 1405 MR#: [id number] Acct: [id number] Name: LUZ BACA Rep #: [id number] : 1940 78 From: Elyse Gary MD [...] single chamber ICD per Dr. 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 Cheung @ [facility]. Also subsequent PCI's :PCI X 6 to RCA in 2013; PCI X 3 in 2014: reports not available but referenced in Dr. Cardona's office visit dated 05/24/2018 History of ventricular septal myectomy (Chronic 07/18/04) Septal Myectomy and CABG X 2 with Left internal thoracic artery to the LAD, and reversed SVG of the PDA per Dr. Cheung @ [facility] S/P CABG x 2 (Chronic 07/18/04) Septal Myectomy and CABG X 2 with Left internal thoracic artery to the LAD, and reversed SVG of the PDA per Dr. 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 Loya @ [facility] [place]. S/P EP/RFA; subsequent upgrade to combination pacer/ICD implant 12/11/16 [employer] VR 1411-36Q End stage renal disease (Chronic) Diabetic neuropathy (Chronic) Peripheral vascular disease (Chronic) Venous insufficiency of both lower extremities (Chronic) Congestive heart failure (Chronic) History of PTCA (Chronic) PCI X 6 to RCA in 2014; PCI X 3 in 2014: reports not available but referenced in Dr. 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 Cheung @ [facility]. Also subsequent PCI's :PCI X 6 to RCA in 2014; PCI X 3 in 2014: reports not [...] single chamber ICD per Dr. Loya @ [facility], [place] History of ventricular septal myectomy (Chronic) Onset Date: 07/18/04 Z98.890 Septal Myectomy and CABG X 2 with Left internal thoracic artery to the LAD, and reversed SVG of the PDA per Dr. Cheung @ [facility] S/P CABG x 2 (Chronic) Onset Date: 07/18/04 Z95.1 Septal Myectomy and CABG X 2 with Left internal thoracic artery to the LAD, and reversed SVG of the PDA per Dr. Cheung @ [facility] 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) Onset Date: 12/11/16 Z95.810 Initial single chamber ICD implant was 12/19/[address] Loya @ [facility] [place]. S/P EP/RFA; subsequent upgrade to [...] management Code Visit Inpatient Isaak AND M: [id number] Init Hosp L3 11/11/18 3282 <Electronically signed by Elyse Gary MD> Date Elyse Gary MD Cosigner Signature (if applicable): Date CC: Mook Kamara MD Signed PROGRESS Observed: 11/11/2018 Status: COMPLETED Source: [place] 9:45 AM [facility] [place] REPOSIT[facility] HNO ID: [id number] Author: Remi Minor Service: (none) Author Type: Accountant Type: Progress Notes Filed: 11/11/2018 9:46 AM Note Text: Noted. I will follow up next week. Remi Minor MA PROGRESS Observed: 11/10/2018 Status: COMPLETED Source: [place] 3:34 PM [facility] REPOSITORY HNO ID: [id number] Author: Jameson Kamara Service: (none) Author Type: Physician Type: Progress Notes Filed: 11/10/2018 3:35 PM Note Text: Reviewed. Patient to have TCM after discharge from post acute facility. Thanks. PROGRESS Observed: 11/10/2018 Status: COMPLETED Source: [place] 2:31 PM [facility] REPOSITORY HNO ID: [id number] Author: Remi Briseno) Brent Service: (none) Author Type: Registered Nurse Type: Progress Notes Filed: 11/10/2018 2:39 PM Note Text: TRANSITION CARE MANAGEMENT (TCM) DISCHARGE TO POST ACUTE FACILITY POST ACUTE TRANSFER SUMMARY: -Pt discharged from [facility] on 11/10/18. -[facility] Acute [facility] [phone] -Admitted for: ASSESSMENT AND PLAN 1. Right [...] reported that it [place] MBS done, speech recommends mechanical soft, [...] DISCHARGE SUMMARY Observed: 11/10/2018 Status: F Source: [facility] 11:49 AM SYSTEM REPOSITORY Discharge Summary Luz [...] DISCHARGE MEDICATIONS: Luz Baca Home Medication Instructions ETHEL:[id number] Printed on:11/11/18 1320 Medication Information amiodarone (CORDARONE) [...] into the skin nightly Night before dialysis (sun, tue, thur) 16 units insulin glargine (LANTUS) 100 UNIT/ML injection vial Inject 24 Units into the skin nightly M// 24 units ipratropium-albuterol (DUONEB) 0.5-2.5 (3) MG/3ML [...] Complexity: follow up within 7-14 calendar days (28739) [x] Severe Complexity: follow up within 7 calendar days (31711) FOLLOW UP TESTING, PENDING RESULTS OR REFERRALS [...] PM GLUCOSE,BEDSIDE Collected: 11/10/2018 Status: F Source: [facility] 7:58 AM SYSTEM REPOSITORY TYPE CODE TESTS RESULT OUT OF RANGE REFERENCE UNITS LAB BGLU 70-100 mg/dL High 114 Glucose,Beds kenneth Result Comment: Test performed by glucose meter. Results may be 10%-15% lower than serum/plasma values. (CLIA ID [id number]) Performed By: #### BGLU #### [facility] [place] [address] GLUCOSE,BEDSIDE Collected: 11/10/2018 Status: F Source: [facility] 7:02 AM SYSTEM REPOSITORY TYPE CODE TESTS RESULT OUT OF RANGE REFERENCE UNITS LAB BGLU 70-100 mg/dL Normal 77 Glucose,Beds kenneth Result Comment: Test performed by glucose meter. Results may be 10%-15% lower than serum/plasma values. (CLIA ID [id number]) Performed By: #### BGLU #### [facility] [employer] [address] [place] [address] GLUCOSE,BEDSIDE Collected: 11/10/2018 Status: F Source: [facility] 12:38 AM SYSTEM REPOSITORY TYPE CODE TESTS RESULT OUT OF RANGE REFERENCE UNITS LAB BGLU 70-100 mg/dL High 104 Glucose,Beds kenneth Result Comment: Test performed by glucose meter. Results may be 10%-15% lower than serum/plasma values. (CLIA ID [id number]) Performed By: #### BGLU #### [facility] [employer] [facility] [address] [place] [id number] CNPTOUTREACH Observed: 11/10/2018 Status: COMPLETED Source: [place] 12:00 AM [facility] REPOSITORY Patient Outreach (FAMPWS) LUZ BACA ([id number]) 1940 F Date Time Provider Department 11/10/18 REMI KENNEDY (RN) NAVINPWS During your visit today, we recorded the following information about you: Remi Kennedy RN 11/10/2018 2:39 PM Signed TRANSITION CARE MANAGEMENT (TCM) DISCHARGE TO POST ACUTE FACILITY POST ACUTE TRANSFER SUMMARY: -Pt discharged from [facility] on 11/10/18. -Post Acute Facility [facility] [place], [place] [phone] -Admitted for: ASSESSMENT AND PLAN 1. Right [...] reported that it was [place] MBS done, speech recommends mechanical soft, thin liquids. ?repeat echo shows severe L atrial dilation with low EF, Will consult cardiology. ? 2. ?Atrial Fibrillation C/W eliquis, amiodarone. ? 3.prolonged qt- will monitor ? 4. ESRD C/W HD per nephrology. ? 5. HTN C/W monitoring closely. ? 6. GERD C/w PPI, Reglan. ? 7. CAD C/W marielle wick crestor. ? 8. Dysphagia- mechanical soft, thin [...] 11/10/18 GLUCOSE,BEDSIDE Collected: 11/09/2018 Status: F Source: [facility] 10:06 PM SYSTEM REPOSITORY TYPE CODE TESTS RESULT OUT OF RANGE REFERENCE UNITS LAB BGLU 70-100 mg/dL High 137 Glucose,Beds kenneth Result Comment: Test performed by glucose meter. Results may be 10%-15% lower than serum/plasma values. (CLIA ID [id number]) Performed By: #### BGLU #### [facility] [employer] [address] [place] [id number] GLUCOSE,BEDSIDE Collected: 11/09/2018 Status: F Source: [facility] 6:18 PM SYSTEM REPOSITORY TYPE CODE TESTS RESULT OUT OF RANGE REFERENCE UNITS LAB BGLU 70-100 mg/dL Normal 89 Glucose,Beds kenneth Result Comment: Test performed by glucose meter. Results may be 10%-15% lower than serum/plasma values. (CLIA ID [id number]) Performed By: #### BGLU #### [facility] [address] [place] [address] GLUCOSE,BEDSIDE Collected: 11/09/2018 Status: F Source: [facility] 5:56 PM SYSTEM REPOSITORY TYPE CODE TESTS RESULT OUT OF RANGE REFERENCE UNITS LAB BGLU 70-100 mg/dL Low 64 Glucose,Beds kenneth Result Comment: Test performed by glucose meter. Results may be 10%-15% lower than serum/plasma values. (CLIA ID [id number]) Performed By: #### BGLU #### [facility] [address] [place] [address] GLUCOSE,BEDSIDE Collected: 11/09/2018 Status: F Source: [facility] 5:12 PM SYSTEM REPOSITORY TYPE CODE TESTS RESULT OUT OF RANGE REFERENCE UNITS LAB BGLU 70-100 mg/dL Normal 71 Glucose,Beds kenneth Result Comment: Test performed by glucose meter. Results may be 10%-15% lower than serum/plasma values. (CLIA ID [id number]) Performed By: #### BGLU #### [facility] [employer] [facility] [place] [address] GLUCOSE,BEDSIDE Collected: 11/09/2018 Status: F Source: [facility] 11:06 AM SYSTEM REPOSITORY TYPE CODE TESTS RESULT OUT OF RANGE REFERENCE UNITS LAB BGLU 70-100 mg/dL High 127 Glucose,Beds kenneth Result Comment: Test performed by glucose meter. Results may be 10%-15% lower than serum/plasma values. (CLIA ID [id number]) Performed By: #### BGLU #### [facility] [address] [place] [address] GLUCOSE,BEDSIDE Collected: 11/09/2018 Status: F Source: [facility] 8:06 AM SYSTEM REPOSITORY TYPE CODE TESTS RESULT OUT OF RANGE REFERENCE UNITS LAB BGLU 70-100 mg/dL Normal 91 Glucose,Beds kenneth Result Comment: Test performed by glucose meter. Results may be 10%-15% lower than serum/plasma values. (CLIA ID [id number]) Performed By: #### BGLU #### [facility] [address] [place] [phone] HEMOGRAM W/ AUTODIFF Collected: 11/09/2018 Status: F Source: [facility] 2:10 AM SYSTEM REPOSITORY TYPE CODE TESTS [...] 0.1 Performed By: #### HEMPRITI BMP3 #### [facility] [employer] [facility] [address] [place] [phone] BASIC METABOLIC PANEL Collected: 11/09/2018 Status: F Source: [facility] 2:10 AM SYSTEM REPOSITORY TYPE CODE TESTS [...] 8.7 Performed By: #### HEMDF, BMP3 #### [facility] [address] [place] [address] GLUCOSE,BEDSIDE Collected: 11/08/2018 Status: F Source: [facility] 8:46 PM SYSTEM REPOSITORY TYPE CODE TESTS RESULT OUT OF RANGE REFERENCE UNITS LAB BGLU 70-100 mg/dL High 209 Glucose,Beds kenneth Result Comment: Test performed by glucose meter. Results may be 10%-15% lower than serum/plasma values. (CLIA ID [id number]) Performed By: #### BGLU #### [facility] [address] [place] [address] GLUCOSE,BEDSIDE Collected: 11/08/2018 Status: F Source: [facility] 5:09 PM SYSTEM REPOSITORY TYPE CODE TESTS RESULT OUT OF RANGE REFERENCE UNITS LAB BGLU 70-100 mg/dL High 102 Glucose,Beds kenneth Result Comment: Test performed by glucose meter. Results may be 10%-15% lower than serum/plasma values. (CLIA ID [id number]) Performed By: #### BGLU #### [facility] [employer] [facility] [address] [place] [address] GLUCOSE,BEDSIDE Collected: 11/08/2018 Status: F Source: [facility] 11:44 AM SYSTEM REPOSITORY TYPE CODE TESTS RESULT OUT OF RANGE REFERENCE UNITS LAB BGLU 70-100 mg/dL High 177 Glucose,Beds kenneth Result Comment: Test performed by glucose meter. Results may be 10%-15% lower than serum/plasma values. (CLIA ID [id number]) Performed By: #### BGLU #### [facility] [address] [place] [address] RF SWALLOWING FUNCTION Observed: 11/08/2018 Status: F Source: [facility] W/ VIDEO 11:17 AM SYSTEM REPOSITORY Patient Name: LUZ BACA Fluoroscopy Exam Date/Time 11/08/2018 09:16:22 EST Exam RF Swallowing Function w/ Video Ordering Physician Magdalene WEN, [facility] Accession Number [id number] [facility]4 Codes 82044 () Reason For Exam dysphagia Report MODIFIED [...] 11:17 GLUCOSE,BEDSIDE Collected: 11/08/2018 Status: F Source: [facility] 7:42 AM SYSTEM REPOSITORY TYPE CODE TESTS RESULT OUT OF RANGE REFERENCE UNITS LAB BGLU 70-100 mg/dL High 155 Glucose,Beds kenneth Result Comment: Test performed by glucose meter. Results may be 10%-15% lower than serum/plasma values. (CLIA ID [id number]) Performed By: #### BGLU #### [facility] [address] [place] [address] GLUCOSE,BEDSIDE Collected: 11/07/2018 Status: F Source: [facility] 8:21 PM SYSTEM REPOSITORY TYPE CODE TESTS RESULT OUT OF RANGE REFERENCE UNITS LAB BGLU 70-100 mg/dL High 130 Glucose,Beds kenneth Result Comment: Test performed by glucose meter. Results may be 10%-15% lower than serum/plasma values. (CLIA ID [id number]) Performed By: #### BGLU #### [facility] [address] [place] [address] GLUCOSE,BEDSIDE Collected: 11/07/2018 Status: F Source: [facility] 5:04 PM SYSTEM REPOSITORY TYPE CODE TESTS RESULT OUT OF RANGE REFERENCE UNITS LAB BGLU 70-100 mg/dL Normal 83 Glucose,Beds kenneth Result Comment: Test performed by glucose meter. Results may be 10%-15% lower than serum/plasma values. (CLIA ID [id number]) Performed By: #### BGLU #### [facility] [address] [place] [address] GLUCOSE,BEDSIDE Collected: 11/07/2018 Status: F Source: [facility] 12:20 PM SYSTEM REPOSITORY TYPE CODE TESTS RESULT OUT OF RANGE REFERENCE UNITS LAB BGLU 70-100 mg/dL High 171 Glucose,Beds kenneth Result Comment: Test performed by glucose meter. Results may be 10%-15% lower than serum/plasma values. (CLIA ID [id number]) Performed By: #### BGLU #### [facility] [address] [place] [address] ECHO COMPLETE W/WO Observed: 11/07/2018 Status: F Source: [facility] CONTRAST 9:43 AM SYSTEM REPOSITORY Patient Name: LUZ BACA Ultrasound Exam Date/Time 11/07/2018 10:35:07 EST Exam Echo Complete w/wo Contrast Ordering Physician AILYN PHOENIX ALLISON Accession Number [id number] Reason For Exam left sided weakness; hx of afib; pt has defib.pacemaker Report TRANSTHORACIC ECHOCARDIOGRAM PATIENT: Luz Baca STUDY DATE: 11/07/2018 : 1940 AGE: 78 HT/WT: 172.7 cm (68 100.2 kg (220.5 in) lb) GENDER: F BP: 143 / 61 LOCATION: [facility] PATIENT Inpatient [facility] STATUS: *ORDERING PHYSICIAN: * Tresa Phoenix *READING PHYSICIAN: * Darlene Correa *[employer]OVEN [employer] SHADE ASSEMBLER: * Ata Urbina [facility] --- INDICATIONS: (Left sided weakness; hx [...] LEAD ELECTROCARDIOGRAM Observed: 11/07/2018 Status: F Source: [place] 9:42 AM [facility] REPOSITORY [facility] Cardiovascular Services [address] [address] 12 Lead EKG 11/04/18 1052 MR#: [id number] Acct: [id number] Name: LUZ BACA Rep #: [id number] : 1940 78 From: Parker Cosby MD [...] ECG Confirmed by PARKER COSBY MD ([id number]), publication editor NELLY ALEXANDER ([id number]) on 11/07/2018 9:42:36 AM Referred By: KOJO Confirmed By:PARKER COSBY MD 11/07/18 0942 Date Parker Cosby MD CC: Mook Kamara MD; Marvel Cook DO Signed GLUCOSE,BEDSIDE Collected: 11/07/2018 Status: F Source: [facility] 8:01 AM SYSTEM REPOSITORY TYPE CODE TESTS RESULT OUT OF RANGE REFERENCE UNITS LAB BGLU 70-100 mg/dL High 164 Glucose,Beds kenneth Result Comment: Test performed by glucose meter. Results may be 10%-15% lower than serum/plasma values. (CLIA ID [id number]) Performed By: #### BGLU #### [facility] [facility] [address] [place] [phone] GLUCOSE,BEDSIDE Collected: 11/06/2018 Status: F Source: [facility] 10:45 PM SYSTEM REPOSITORY TYPE CODE TESTS RESULT OUT OF RANGE REFERENCE UNITS LAB BGLU 70-100 mg/dL High 156 Glucose,Beds kenneth Result Comment: Test performed by glucose meter. Results may be 10%-15% lower than serum/plasma values. (CLIA ID [id number]) Performed By: #### BGLU #### [facility] [address] [place] [address] GLUCOSE,BEDSIDE Collected: 11/06/2018 Status: F Source: [facility] 6:06 PM SYSTEM REPOSITORY TYPE CODE TESTS RESULT OUT OF RANGE REFERENCE UNITS LAB BGLU 70-100 mg/dL High 132 Glucose,Beds kenneth Result Comment: Test performed by glucose meter. Results may be 10%-15% lower than serum/plasma values. (CLIA ID [id number]) Performed By: #### BGLU #### [facility] [address] [place] [address] GLUCOSE,BEDSIDE Collected: 11/06/2018 Status: F Source: [facility] 2:50 PM SYSTEM REPOSITORY TYPE CODE TESTS RESULT OUT OF RANGE REFERENCE UNITS LAB BGLU 70-100 mg/dL High 162 Glucose,Beds kenneth Result Comment: Test performed by glucose meter. Results may be 10%-15% lower than serum/plasma values. (CLIA ID [id number]) Performed By: #### BGLU #### [facility] [place] [address] RF SWALLOWING FUNCTION Observed: 11/06/2018 Status: F Source: [facility] W/ VIDEO 11:39 AM SYSTEM REPOSITORY Patient Name: LUZ BACA Fluoroscopy Exam Date/Time 11/06/2018 11:31:57 EST Exam RF Swallowing Function w/ Video Ordering Physician NIRU BORJAS Accession Number [id number] [facility]4 Codes 72610 () Reason For Exam dysphagia, stroke. Patient [...] DIANE Transcribed Date and Time: 11/06/2018 11:39 NOTEMAN MODIFIED BARIUM Observed: 11/06/2018 Status: F Source: [employer] SWALLOW STUDY 11:02 AM SYSTEM REPOSITORY Patient Name: LUZ BACA Fluoroscopy Exam Date/Time 11/06/2018 11:32:32 EST Exam NOTEMAN Modified Barium Swallow Study Ordering Physician NIRU BORJAS Accession Number [id number] Reason For Exam dysphagia Report Date: 11/06/2018 11:03 AM EST Onset Date: 11/04/2018 Diagnosis: Right hemisphere CVA, dysphagia Reason for Referral: [facility] completed yesterday morning with no swallowing difficulties [...] tongue base retraction). G-Code: CN Radiologist: Dr. Dilma Hernández MD Report Dictated on Final Dictated: 11/06/2018 11:02 am Dictating Physician: IDANIA DEWEY, GALO/CRISTIANE HAMMOND Signed Date and Time: 11/06/2018 11:43 am Signed by: IDANIA DEWEY, GALO/CRISTIANE HAMMOND Transcribed Date and Time: 11/06/2018 11:02 GLUCOSE,BEDSIDE Collected: 11/06/2018 Status: F Source: [employer] 9:08 AM SYSTEM REPOSITORY TYPE CODE TESTS RESULT OUT OF RANGE REFERENCE UNITS LAB BGLU 70-100 mg/dL Normal 94 Glucose,Beds kenneth Result Comment: Test performed by glucose meter. Results may be 10%-15% lower than serum/plasma values. (CLIA ID [id number]) Performed By: #### BGLU #### [employer] [address] [place] [phone] CR CHEST 1 VIEW Observed: 11/06/2018 Status: F Source: [facility] 2:53 AM SYSTEM REPOSITORY Patient Name: LUZ BACA Diagnostic Radiology Exam Date/Time 11/06/2018 00:16:26 EST Exam CR Chest 1 View Frontal Ordering Physician DO HUERTA TAHIRAH A Accession Number [id number] CPT4 Codes 65256 () Reason For Exam Hypoxia Report PORTABLE [...] Thoracic degenerative spondylosis. Report Dictated on Workstation: ACPAffinityClick Final Dictated: 11/06/2018 2:53 am Dictating Physician: MARA GOMEZ DO, I Signed Date and Time: 11/06/2018 2:55 am Signed by: MARA GOMEZ DO, I Transcribed Date and Time: 11/06/2018 2:53 TROPONIN I Collected: 11/05/2018 Status: F Source: [employer] 11:48 PM SYSTEM REPOSITORY TYPE CODE TESTS RESULT OUT OF REFERENCE UNITS RANGE LAB TROP4 0.000-0.034 ng/mL High Troponin I 0.037 Result Comment: 0.046 - 0.400 = Indeterminate > 0.400 = Consider Myocardial Injury Performed By: #### TROPN #### [employer] [address] [place] [phone] ARTERIAL BLOOD GASES Collected: 11/05/2018 Status: F Source: [employer] 11:36 PM SYSTEM REPOSITORY TYPE CODE TESTS [...] No data Performed By: #### ABG #### [employer] [address] [place] [address] GLUCOSE,BEDSIDE Collected: 11/05/2018 Status: F Source: [employer] 11:09 PM SYSTEM REPOSITORY TYPE CODE TESTS RESULT OUT OF RANGE REFERENCE UNITS LAB BGLU 70-100 mg/dL High 141 Glucose,Beds kenneth Result Comment: Test performed by glucose meter. Results may be 10%-15% lower than serum/plasma values. (CLIA ID [id number]) Performed By: #### BGLU #### [employer] [address] [place] [phone] GLUCOSE,BEDSIDE Collected: 11/05/2018 Status: F Source: [employer] 9:45 PM SYSTEM REPOSITORY TYPE CODE TESTS RESULT OUT OF RANGE REFERENCE UNITS LAB BGLU 70-100 mg/dL High 137 Glucose,Beds kenneth Result Comment: Test performed by glucose meter. Results may be 10%-15% lower than serum/plasma values. (CLIA ID [id number]) Performed By: #### BGLU #### [employer] [address] [place] [phone] GLUCOSE,BEDSIDE Collected: 11/05/2018 Status: F Source: [employer] 9:04 PM SYSTEM REPOSITORY TYPE CODE TESTS RESULT OUT OF RANGE REFERENCE UNITS LAB BGLU 70-100 mg/dL Low 62 Glucose,Beds kenneth Result Comment: Test performed by glucose meter. Results may be 10%-15% lower than serum/plasma values. (CLIA ID [id number]) Performed By: #### BGLU #### [employer] [address] [place] [phone] [address] HEAD OR BRAIN W/O Observed: 11/05/2018 Status: F Source: [employer] 3:32 PM SYSTEM REPOSITORY Patient Name: LUZ BACA CT Exam Date/Time 11/05/2018 15:09:[address] Head or Brain w/o Contrast Ordering Physician AILYN ORR, MIGUELINA Zavala Accession Number [id number] CPT4 Codes 41710 () Reason For Exam stroke Report CT [...] 3:32 GLUCOSE,BEDSIDE Collected: 11/05/2018 Status: F Source: [employer] 12:32 PM SYSTEM REPOSITORY TYPE CODE TESTS RESULT OUT OF RANGE REFERENCE UNITS LAB BGLU 70-100 mg/dL High 136 Glucose,Beds kenneth Result Comment: Test performed by glucose meter. Results may be 10%-15% lower than serum/plasma values. (CLIA ID [id number]) Performed By: #### BGLU #### [employer] [facility] [address] [place] [phone] GLUCOSE,BEDSIDE Collected: 11/05/2018 Status: F Source: [employer] 12:04 PM SYSTEM REPOSITORY TYPE CODE TESTS RESULT OUT OF RANGE REFERENCE UNITS LAB BGLU 70-100 mg/dL High 133 Glucose,Beds kenneth Result Comment: Test performed by glucose meter. Results may be 10%-15% lower than serum/plasma values. (CLIA ID [id number]) Performed By: #### BGLU #### [employer] [facility] [address] [place] [address] HEP B SURFACE AG Collected: 11/05/2018 Status: F Source: [employer] 11:10 AM SYSTEM REPOSITORY TYPE CODE TESTS RESULT OUT OF RANGE REFERENCE UNITS LAB HBSAG Not-Detected NA Normal Hep B Surface NOT DETECTED Ag Performed By: #### HBSAG #### [employer] [address] [place] [address] VL CAROTID DUPLEX Observed: 11/05/2018 Status: F Source: [employer] ULTRASOUND COMPLETE 8:59 AM SYSTEM REPOSITORY Patient Name: LUZ BACA Ultrasound Exam Date/Time 11/05/2018 09:28:55 EST Exam VL Carotid Duplex Ultrasound Complete Ordering Physician AILYN PHOENIX ALLISON Accession Number [id number] CPT4 Codes 87774 () Reason For Exam left sided weakness Report [facility] --- Carotid Duplex Report Patient Name: Luz Baca : 1940 Study Date: 11/05/2018 (78yrs) Age: 78 Account: [id number] Gender: F Loc: 1437 BP: Ordering: Tresa Phoenix Technologist: Ordering Physician: Tresa Phoenix Proced Tech: Chantelle Carrasco RVT Interpreting Physician: Deisy Casanova MD --- Location: [facility] --- INDICATIONS: Unilateral weakness. --- CONCLUSIONS 1. [...] performed. The images were obtained using a [facility] E9 vascular ultrasound machine. The study [...] + Electronically signed by: Deisy Casanova MD [id number] Final Dictated: 11/05/2018 7:13 pm Dictating Physician: DEISY CASANOVA Signed Date and Time: 11/05/2018 11:54 am Signed by: DEISY CASANOVA GLUCOSE,BEDSIDE Collected: 11/05/2018 Status: F Source: [employer] 8:05 AM SYSTEM REPOSITORY TYPE CODE TESTS RESULT OUT OF RANGE REFERENCE UNITS LAB BGLU 70-100 mg/dL Normal 97 Glucose,Beds kenneth Result Comment: Test performed by glucose meter. Results may be 10%-15% lower than serum/plasma values. (CLIA ID [id number]) Performed By: #### BGLU #### [employer] [address] [place] [phone] GLUCOSE,BEDSIDE Collected: 11/05/2018 Status: F Source: [employer] 7:27 AM SYSTEM REPOSITORY TYPE CODE TESTS RESULT OUT OF RANGE REFERENCE UNITS LAB BGLU 70-100 mg/dL Low 61 Glucose,Beds kenneth Result Comment: Test performed by glucose meter. Results may be 10%-15% lower than serum/plasma values. (CLIA ID [id number]) Performed By: #### BGLU #### [employer] [address] [place] [phone] HEMOGRAM Collected: 11/05/2018 Status: F Source: [employer] 3:59 AM SYSTEM REPOSITORY TYPE CODE TESTS [...] By: #### HEMOG, HA1C2, LIPD2, TROPN #### [employer] [address] [place] [phone] HEMOGLOBIN A1C Collected: 11/05/2018 Status: F Source: [employer] 3:59 AM SYSTEM REPOSITORY TYPE CODE TESTS RESULT OUT OF RANGE REFERENCE UNITS LAB A1C2 4.0-5.7 % Normal Hemoglobin A1C 5.7 Result Comment: --HgbA1C levels may not be accurate in patients who have renal disease, received recent blood transfusions, are anemic, or who have dyshemoglobinemia. LAB EAG2 mg/dL Estimated Avg Glucose 117 Performed By: #### HEMOG, HA1C2, LIPD2, TROPN #### [employer] [address] [place] [address] LIPID PANEL Collected: 11/05/2018 Status: F Source: [employer] 3:58 AM SYSTEM REPOSITORY TYPE CODE TESTS [...] By: #### HEMOG, HA1C2, LIPD2, TROPN #### [employer] [address] [place] [address] TROPONIN I Collected: 11/05/2018 Status: F Source: [employer] 3:58 AM SYSTEM REPOSITORY TYPE CODE TESTS RESULT OUT OF REFERENCE UNITS RANGE LAB TROP4 0.000-0.034 ng/mL High Troponin I 0.035 Result Comment: 0.046 - 0.400 = Indeterminate > 0.400 = Consider Myocardial Injury Performed By: #### HEMOG, HA1C2, LIPD2, TROPN #### [employer] [address] [place] [address] TROPONIN I Collected: 11/04/2018 Status: F Source: [employer] 11:52 PM SYSTEM REPOSITORY TYPE CODE TESTS RESULT OUT OF REFERENCE UNITS RANGE LAB TROP4 0.000-0.034 ng/mL High Troponin I 0.037 Result Comment: 0.046 - 0.400 = Indeterminate > 0.400 = Consider Myocardial Injury Performed By: #### TROPN #### [employer] [address] GLUCOSE,BEDSIDE Collected: 11/04/2018 Status: F Source: [employer] 8:31 PM SYSTEM REPOSITORY TYPE CODE TESTS RESULT OUT OF RANGE REFERENCE UNITS LAB BGLU 70-100 mg/dL High 110 Glucose,Beds kenneth Result Comment: Test performed by glucose meter. Results may be 10%-15% lower than serum/plasma values. (CLIA ID [id number]) Performed By: #### BGLU #### [employer] [facility] [address] [place] [address] TROPONIN I Collected: 11/04/2018 Status: F Source: [employer] 6:02 PM SYSTEM REPOSITORY TYPE CODE TESTS RESULT OUT OF RANGE REFERENCE UNITS LAB TROP4 0.000-0.034 ng/mL Normal Troponin I 0.033 Result Comment: Slightly hemolysed, interpret with caution. 0.046 - 0.400 = Indeterminate > 0.400 = Consider Myocardial Injury Performed By: #### TROPN #### [employer] [place] [address] [place] [address] GLUCOSE,BEDSIDE Collected: 11/04/2018 Status: F Source: [employer] 5:54 PM SYSTEM REPOSITORY TYPE CODE TESTS RESULT OUT OF RANGE REFERENCE UNITS LAB BGLU 70-100 mg/dL Normal 73 Glucose,Beds kenneth Result Comment: Test performed by glucose meter. Results may be 10%-15% lower than serum/plasma values. (CLIA ID [id number]) Performed By: #### BGLU #### [facility] [address] [address] EMERGENCY DEPARTMENT Observed: 11/04/2018 Status: F Source: [place] SUMMARY 1:37 PM [facility] REPOSITORY [facility] Medical Records Department [address] [place] [address] Emergency Department Summary 11/04/18 1333 MR#: [id number] Acct: [id number] Name: LUZ BACA Rep #: [id number] : 1940 78 From: Marvel Cook DO [...] rebound or rigidity, no peritoneal signs. Neuro eryr-djdydz-pjcq and heel guthrie testing within normal limits, [...] [Case was discussed with neurology on-call Dr. aGry who asked that we transfer patient to tertiary care facility for vascular evaluation. Patient would prefer to go [facility].] Treatment Plan: [Transfer to [facility]. I discussed case with [facility] hospitalist who accepted transfer of patient] Disposition: [Transfer] Impression: [TIA Bilateral carotid stenosis] This note was generated with Buyosphereation software. It may contain incorrect words, spelling, [...] your Primary Care Provider. Call [facility] ([phone]) or report to the closest Emergency Room. Call 911 if necessary. 11/04/18 1337 <Electronically signed by Marvel Cook DO> Date Marvel Cook DO Cosigner Signature (If Indicated): Date CC: Mook Kamara MD CTA HEAD W/WO Observed: 11/04/2018 Status: F Source: [facility] CONTRAST 11:02 AM [facility] REPOSITORY [facility] Imaging Services [address] [place] [address] CTA Head W/WO Contrast MR#: [id number] Acct: [id number] Name: LUZ BACA Rep #: [id number] : 1940 F 78 From: Antonio Pascual MD PCP: Mook Kamara MD Status: REG ER Study: CTA Head W/WO Contrast Date of Exam: 11/04/18 Exam# [id number] Ordering Dr: Marvel Cook DO STUDY: CTA [...] There is no demonstrated aneurysm of the [place]. Cerebral atrophy. CT/CTA Head W/WO Contrast IMPRESSION: Normal [place] without a demonstrated aneurysm or hemodynamically significant stenosis. Electronically Signed: Antonio Pascual MD at 12:24 EST Tel [phone], Service support , CC: Mook Kamara MD; Marvel Cook DO Top Lift Cutter: Signed CTA NECK W/WO Observed: 11/04/2018 Status: F Source: [place] CONTRAST 11:02 AM [facility] REPOSITORY [facility] Imaging Services [address] [place] [address] CTA Neck W/WO Contrast MR#: [id number] Acct: [id number] Name: LUZ BACA Rep #: [id number] : 1940 F 78 From: Antonio Pascual MD PCP: Mook Kamara MD Status: REG ER Study: CTA Neck W/WO Contrast Date of Exam: 11/04/18 Exam# [id number] Ordering Dr: Marvel Cook DO STUDY: CTA [...] Antonio Pascual MD at 12:28 EST Tel [phone], Service support , CC: Mook Kamara MD; Marvel Cook DO Top Lift Cutter: Signed CBC W/DIFF, AUTOMATED Collected: 11/04/2018 Status: F Source: [facility] 11:00 AM [facility] REPOSITORY TYPE CODE TESTS RESULT OUT OF [...] Lymph 1.47 Performed By: #### L100.0100 #### [facility] [address] [place], [address] PROTHROMBIN TIME W/INR Collected: 11/04/2018 Status: F Source: [facility] 11:00 AM [facility] REPOSITORY TYPE CODE TESTS RESULT OUT OF RANGE REFERENCE UNITS LAB L300.4150 11.7-14.9 SECONDS Normal PROTIME 13.7 LAB L300.4200 Normal INR 1.1 Performed By: #### L300.3900, L300.4310 #### [facility] [address] [place], [address] PARTIAL THROMBOPLAST Collected: 11/04/2018 Status: F Source: [place] TIME 11:00 AM [facility] REPOSITORY TYPE CODE TESTS RESULT OUT OF RANGE REFERENCE UNITS LAB L300.4310 24.1-36.2 Seconds Normal PTT 28.7 Performed By: #### L300.3900, L300.4310 #### [facility] [address] [place], [address] BASIC METABOLIC Collected: 11/04/2018 Status: F Source: [facility] PROFILE (BMP) 11:00 AM [facility] REPOSITORY TYPE CODE TESTS RESULT OUT OF [...] 8 Performed By: #### L500.2500, L501.4010 #### [facility] [address] [facility] [place], [address] TROPONIN-I Collected: 11/04/2018 Status: F Source: [place] 11:00 AM [facility] REPOSITORY TYPE CODE TESTS RESULT OUT OF RANGE REFERENCE UNITS LAB L501.4010 <0.045 ng/mL High 0.565 TROPONIN-I Result Comment: TROPONIN-I EXPECTED VALUES <0.045 Negative 0.045 - 0.590 Consistent with Cardiac Damage > OR = 0.600 Critical Value Not every elevated troponin is indicative of PA. These values should be used with clinical judgement in examining the patient's clinical picture for diagnosis. To establish a diagnosis of PA versus myocardial injury, there must be a demonstrated rise and/or fall in the troponin values, in addition to ischemic symptoms, EKG changes, new regional wall motion abnormality, and/or angiographical evidence. PLEASE NOTE: REFERENCE RANGES EDITED 18 Performed By: #### L500.2500, L501.4010 #### [facility] [address] [facility] [place], [address] BRAIN/HEAD WITHOUT Observed: 11/04/2018 Status: F Source: [place] CONTRAST 10:54 AM [facility] REPOSITORY [facility] Imaging Services [address] [place] [address] Brain/Head without Contrast MR#: [id number] Acct: [id number] Name: LUZ BACA Rep #: [id number] : 1940 F 78 From: Antonio Pascual MD PCP: Mook Kamara MD Status: REG ER Study: Brain/Head without Contrast Date of Exam: 11/04/18 Exam# [id number] Ordering Dr: Marvel Cook DO STUDY: CT [...] Antonio Pascual MD at 11:07 EST Tel [phone], Service support , CC: Mook Kamara MD; Marvel Cook DO Top Lift Cutter: Signed CHEST 1 VIEW Observed: 11/04/2018 Status: F Source: [place] 10:54 AM [facility] REPOSITORY [facility] Imaging Services [address] [place] [address] Chest 1 View MR#: [id number] Acct: [id number] Name: LUZ BACA Rep #: [id number] : 1940 F 78 From: Antonio Pascual MD PCP: Mook Kamara MD Status: REG ER Study: Chest 1 View Date of Exam: 11/04/18 Exam# [id number] Ordering Dr: Marvel Cook DO STUDY: X-RAY [...] Antonio Pascual MD at 11:26 EST Tel [phone], Service support , CC: Mook Kamara MD; Marvel Cook DO Top Lift Cutter: Signed BEDSIDE GLUCOSE Collected: 11/04/2018 Status: F Source: [facility] 10:52 AM [facility] REPOSITORY TYPE CODE TESTS RESULT OUT OF REFERENCE UNITS RANGE LAB L501.080 70-110 mg/dL High BEDSIDE GLU 149 Result Comment: MANAGEMENT OF PATIENT CARE PER NURSING PROTOCOL Performed By: #### L501.080 #### [facility] Point of Care [address] 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 She denies any other acute [...] single chamber ICD per Dr. Loya @ [facility], [place] care home 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 (Chronic) Atherosclerotic heart disease of [place] coronary artery without angina pectoris (Chronic) Septal Myectomy and CABG X 2 with Left internal thoracic artery to the LAD, and reversed SVG of the PDA per Dr. Cheung @ [facility]. Also subsequent PCI's :PCI X 6 to RCA in 2013; PCI X 3 in 2014: reports not available but referenced in Dr. Cardona's office visit dated 05/24/2018 History of ventricular septal myectomy (Chronic 07/18/04) Septal Myectomy and CABG X 2 with Left internal thoracic artery to the LAD, and reversed SVG of the PDA per Dr. Cheung @ [facility] S/P CABG x 2 (Chronic 07/18/04) Septal Myectomy and CABG X 2 with Left internal thoracic artery to the LAD, and reversed SVG of the PDA per Dr. 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 Loya @ [facility] [place]. S/P EP/RFA; subsequent upgrade to [...] Date Recorded By Document 11/03/18 13:29 BMF [id number] 11/03/18 13:48 BMF Neurological: Neuro grossly intact [...] primary care. This note was generated with Buyosphereation software. It may contain incorrect words, spelling, and punctuation that were not noted in checking the note before signing. Code Visit Office Visits / Consults: [id number] OV L3 Est 11/04/18 0907 <Electronically signed by Isabela QUIROGA> Date Isabela QUIROGA CC: Signed PROGRESS Observed: 11/03/2018 Status: COMPLETED Source: READ[place] 11:09 AM [facility] REPOSITORY [facility] ID: [id number] Author: Jameson Adams) Koffi Service: (none) Author [...] 07/01/2018 - COPD (chronic obstructive pulmonary disease) ([facility]) Dr. Cruz - Depression - Diabetes ([facility]) - Diabetic neuropathy ([facility]) - Edema - ESRD (end stage renal disease) on dialysis ([facility]) ZACH Nieto, Dr. Swartz - GERD (gastroesophageal reflux disease) - Gout with hyperuricemia - HH (hiatus hernia) - HOCM (hypertrophic obstructive cardiomyopathy) ([facility]) S/P Septal Myectomy in 2003. Now with LVEF 50% and mod/severe pulm HTN with tricuspid regurgitation - HTN (hypertension) - Hyperlipidemia - Morbid obesity with BMI of 40.0-44.9, adult ([facility]) - Presence of combination internal cardiac defibrillator (ICD) and pacemaker - Sleep apnea 2011 not on CPAP, unable to tolerate mask 02/2017 - SVT (supraventricular tachycardia) ([facility]) NSVT and questionable VT in 2003 post [...] age 89, HTN - Heart Failure Mother PA - Cancer Father age 71, lung cancer [...] Abs Lymph 1.00 - 4.00 k/uL 1.29 [place]% % 9.9 Abs [place] <0.87 k/uL 0.80 Eosin% % 2.2 Abs [...] arise. - Discussed diabetic education issues of [facility] diabetic complications, hypoglycemic symptoms, hyperglycemic symptoms, diet, medications- side effects and need for compliance, importance of exercise, use and side effects of insulin and importance of appointments with Recreation Manager with patient. 2. Diabetic polyneuropathy associated with [...] unspecified vessel or lesion type, unspecified whether [place] or transplanted heart - ICD9: 414.00, ICD10: [...] with more than 50% of the total rpks-cr-qujj time of the visit in counseling / coordination of care. Jameson Kamara MD CNOV Observed: 11/03/2018 Status: COMPLETED Source: READ[place] 11:00 AM [facility] REPOSITORY Office Visit (FAMPWS) LUZ BACA ([id number]) 1940 F Date Time Provider Department 11/03/18 [...] Diagnosis Date - Arthritis - Atrial fibrillation ([facility]) - CAD (coronary artery disease) stents x9, defibrillator, CABG. Seeing Dr. Cardona - Cardiac defibrillator in place - Cardiomegaly - Carotid artery disease ([facility]) left - Chronic hypoxemic respiratory failure ([facility]) 07/01/2018 - COPD (chronic obstructive pulmonary disease) ([facility]) Dr. Cruz - Depression - Diabetes ([facility]) - Diabetic neuropathy ([facility]) - Edema - ESRD (end stage renal disease) on dialysis ([facility]) ZACH Nieto, Dr. Swartz - GERD (gastroesophageal reflux disease) - Gout with hyperuricemia - HH (hiatus hernia) - HOCM (hypertrophic obstructive cardiomyopathy) ([facility]) S/P Septal Myectomy in 2003. Now with LVEF 50% and mod/severe pulm HTN with tricuspid regurgitation - HTN (hypertension) - Hyperlipidemia - Morbid obesity with BMI of 40.0-44.9, adult ([facility]) - Presence of combination internal cardiac defibrillator (ICD) and pacemaker - Sleep apnea 2011 not on CPAP, unable to tolerate mask 02/2017 - SVT (supraventricular tachycardia) ([facility]) NSVT and questionable VT in 2003 post [...] age 89, HTN - Heart Failure Mother PA - Cancer Father age 71, lung cancer [...] Abs Lymph 1.00 - 4.00 k/uL 1.29 [place]% % 9.9 Abs [place] <0.87 k/uL 0.80 Eosin% % 2.2 Abs [...] arise. - Discussed diabetic education issues of 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 teacher diabetic complications, hypoglycemic symptoms, hyperglycemic symptoms, diet, medications- side effects and need for compliance, importance of exercise, use and side effects of insulin and importance of appointments with Recreation Manager with patient. 2. Diabetic polyneuropathy associated with [...] unspecified vessel or lesion type, unspecified whether [place] or transplanted heart - ICD9: 414.00, ICD10: [...] with more than 50% of the total rufw-hy-xmki time of the visit in counseling / coordination of care. Jameson Kamara MD Referring Provider: JAMESON KAMARA) [[id number]] Allergies As of Date: 11/03/2018 Noted Allergy [...] dialysis, with long-term current use of insulin ([facility]) [E11.22, N18.6, Z79.4, Z99.2] Other Visit Diagnoses:Diabetic polyneuropathy associated with type 2 diabetes mellitus (HCC) [E11.42] Atrial fibrillation, unspecified type ([facility]) [I48.91] Coronary artery disease, angina presence unspecified, unspecified vessel or lesion type, unspecified whether [place]irie [place] or transplanted heart [I25.10] Chronic obstructive pulmonary disease, unspecified COPD type (HCC) [J44.9] Gastroesophageal reflux disease, esophagitis presence not specified [K21.9] Epigastric pain [R10.13] Hypertension [I10] Hyperlipidemia, unspecified hyperlipidemia type [E78.5] ESRD on dialysis (HCC) [N18.6, Z99.2] Hypotension, unspecified hypotension type [I95.9] Ulcers of both lower extremities, limited to breakdown of skin ([facility]) [L97.911, L97.921] Order(s):HEMOGLOBIN A1C (POC) [4657786] Order #: [id number]. #:[id number] insulin glargine (LANTUS SOLOSTAR U-100 INSULIN) 100 unit/mL (3 mL) inpnNight before dialysis (Sun, Tu and Th) pt is to take Lantus [...] take Lantus 16 units The other nights, () pt is to take 24 units Lantus. [...] take Lantus 18 units The other nights, (-W--Wed) pt is to take 28 units Lantus. [...] 11/03/18 PROGRESS Observed: 10/28/2018 Status: COMPLETED Source: READING 3:42 PM [facility] REPOSITORY O ID: [id number] Author: Remi (Rn) Brent Service: (none) Author Type: Registered Nurse Type: Progress Notes Filed: 10/28/2018 4:31 PM Note Text: PRIMARY CARE COORDINATION FOLLOW-UP NOTE Provider Action/FYI FYI Discussed w/ PCP Patient identified by name and date of . YES Spoke to Octavia griffin Summary: TC to Kennedi at [facility], left message informing of PCP's instructions below [...] Daughter unsure pt will allow DAMION wraps Hotshot Superintendent plan for next outreach: Will follow up 3 weeks Signature Remi Kennedy RN October 28, 2018 PROGRESS Observed: 10/27/2018 Status: COMPLETED Source: READING 12:52 PM [facility] REPOSITORY HNO ID: [id number] Author: Jameson Kamara Service: (none) Author Type: [...] nursing PROGRESS Observed: 10/27/2018 Status: COMPLETED Source: READING 11:56 AM [facility] REPOSITORY HNO ID: [id number] Author: Remi Briseno) Brent Service: (none) Author [...] . YES Spoke to Li nurse at [facility] Summary: Luz Franco Baca is a 78 year old female [...] units, [phone] units insulin glargine (LANTUS Hotshot Superintendent plan for next outreach: Will follow up 3 weeks Signature Remi Kennedy RN October 27, 2018 CNPTOUTREACH Observed: 10/27/2018 Status: COMPLETED Source: READING 12:00 AM [facility] REPOSITORY Patient Outreach (FAMPWS) LUZ BACA ([id number]) 1940 F Date Time Provider Department 10/27/18 REMI KENNEDY (ALLYSON) ANTOINE During your visit today, we recorded the following information about you: Remi Kennedy RN 10/27/2018 12:10 PM Signed PRIMARY CARE COORDINATION FOLLOW-UP NOTE Provider Action/FYI Call from Home Health nurse: See ANA M. Pt verbalized correct dose of insulin Cipro [...] . YES Spoke to nurse Li at [facility] Summary: Luz Baca is a 78 year [...] units, [phone] units insulin glargine (LANTUS Hotshot Superintendent plan for next outreach: Will follow up [...] Signed PRIMARY CARE COORDINATION FOLLOW-UP NOTE Provider Action/ANI ANI Discussed w/ PCP Patient identified by name and date of . YES Spoke to Octavia griffin Summary: TC to Kennedi at [facility], left message informing of PCP's instructions below [...] Daughter unsure pt will allow DAMION wraps Hotshot Superintendent plan for next outreach: Will follow up [...] Claudio - Fully Assessed Reason for Visit: [employer] Chronic Care [2329] Prescriptions as of 10/27/2018 Sig: DOCUSATE SODIUM [...] 10/28/18 PROGRESS Observed: 10/26/2018 Status: COMPLETED Source: READING 10:41 AM [facility] REPOSITORY HNO ID: [id number] Author: Jameson Adams) Koffi Service: (none) Author Type: Physician Type: Progress Notes Filed: 10/26/2018 10:41 AM Note Text: Reviewed. Will await follow up in 1 week. PROGRESS Observed: 10/26/2018 Status: COMPLETED Source: READING 9:39 AM [facility] REPOSITORY HNO ID: [id number] Author: Remi Briseno) Brent Service: (none) Author [...] YES Spoke to Kennedi at [facility] Summary: Asked Kennedi to have [...] very non-compliant in a passive aggressive manor. Hotshot Superintendent plan for next outreach: Will follow up one week Signature Remi Kennedy RN October 26, 2018 CNPTOUTREACH Observed: 10/26/2018 Status: COMPLETED Source: READING 12:00 AM [facility] REPOSITORY Patient Outreach (FAMPWS) LUZ BACA ([id number]) 1940 F Date Time Provider Department 10/26/18 REMI KENNEDY (RN) SLOANWS During your visit [...] YES Spoke to Kennedi at [facility] Summary: Asked Kennedi to have [...] very non-compliant in a passive aggressive manor. Hotshot Superintendent plan for next outreach: Will follow up [...] Claudio - Fully Assessed Reason for Visit: [employer] Chronic Care [8616] Prescriptions as of 10/26/2018 Sig: DOCUSATE SODIUM [...] 10/26/18 PROGRESS Observed: 10/24/2018 Status: COMPLETED Source: READING 8:37 PM [facility] REPOSITORY HNO ID: [id number] Author: Jameson Adams) Koffi Service: (none) Author Type: Physician Type: Progress Notes Filed: 10/24/2018 8:37 PM Note Text: Reviewed and agree. PROGRESS Observed: 10/24/2018 Status: COMPLETED Source: READING 10:14 AM [facility] REPOSITORY HNO ID: [id number] Author: Remi (Rn) Brent Service: (none) Author Type: Registered Nurse Type: Progress Notes Filed: 10/24/2018 5:21 PM Note Text: PRIMARY CARE COORDINATION FOLLOW-UP NOTE Provider Action/I I TC to patient to ask for BS [...] . YES Spoke to JOSS Jefferson nurse, [facility] Care Gap: No Damion or ARB with CHF Dx. Pt has intolerance to DAMION/ARB (CRF) per Dr. Pete Cardona, [facility] St[facility] Summary: TC to patient, left message to please call PCC back with last week of blood sugar readings and to discuss pt's legs. TC to [facility], states they don't have Zinc Oxide cream. Everything they have with Zinc Oxide also has multiple other ingredients. TC from Home Health nurse, Li, just made visit to patient. They bought [place] Salve because pharmacy didn't have Zinc Oxide cream. States LE had no open areas but skin is very dry and red. Nurse thinks [place] Salve dried patient's skin. The only other [...] pt Do Not Cancel Wound Center appt. Hotshot Superintendent plan for next outreach: Will follow up one week Signature Remi Kennedy RN October 24, 2018 ELÍASTOUTREACH Observed: 10/24/2018 Status: COMPLETED Source: READING 12:00 AM [facility] REPOSITORY Patient Outreach (FAMPWS) LUZ BACA ([id number]) 1940 F Date Time Provider Department 10/24/18 REMI KENNEDY (RN) SLOANWS During your visit [...] of . YES [facility]oke [facility] Li nurse, [facility] Care Gap: No Damion or ARB with CHF Dx. Pt has intolerance to DAMION/ARB (CRF) per Dr. Pete Cardona, [facility] Summary: TC to patient, left message to please call PCC back with last week of blood sugar readings and to discuss pt's legs. TC to [facility], states they don't have Zinc Oxide cream. Everything they have with Zinc Oxide also has multiple other ingredients. TC from Home Health nurse, Li, just made visit to patient. They bought [place] Salve because pharmacy didn't have Zinc Oxide cream. States LE had no open areas but skin is very dry and red. Nurse thinks [place] Salve dried patient's skin. The only other [...] pt Do Not Cancel Wound Center appt. Hotshot Superintendent plan for next outreach: Will follow up [...] Claudio - Fully Assessed Reason for Visit: [employer] Chronic Care [3612] Prescriptions as of 10/24/2018 [...] 10/24/18 PROGRESS Observed: 10/20/2018 Status: COMPLETED Source: READING 4:47 PM [facility] REPOSITORY HNO ID: [id number] Author: Remi Briseno) Brent Service: (none) Author Type: Registered Nurse Type: Progress Notes Filed: 10/20/2018 4:49 PM Note Text: PRIMARY CARE COORDINATION QUICK NOTE Provider Action/FYI TC to Catarina [facility] nurse, informed Bacitracin was D/C'd when he ordered the Unna boots. Order approved for calcium alginate, zinc cream, soft fluff and Damion wrap. Verbalized understanding and they will fax order for PCP to sign Patient identified by name and date . Remi Kennedy RN October 20, 2018 4:49 PM PROGRESS Observed: 10/20/2018 Status: COMPLETED Source: READING 2:39 PM [facility] HNO ID: [id number] Author: Jameson Adams) Koffi Service: (none) Author Type: Physician Type: Progress Notes Filed: 10/20/2018 2:39 PM Note Text: . PROGRESS Observed: 10/20/2018 Status: COMPLETED Source: READING 2:38 PM [facility] [place] REPOSITORY HNO ID: [id number] Author: Jameson Adams) Koffi Service: (none) Author Type: Physician Type: Progress Notes Filed: 10/20/2018 2:39 PM Note Text: Bacitracin was discontinued when we recommended patient use the Unna boots. Ok to apply calcium alginate and zinc cream to open areas along with Damion wraps for compression. PROGRESS Observed: 10/20/2018 Status: COMPLETED Source: READING 1:32 PM [facility] [place] REPOSITORY HNO ID: [id number] Author: Remi Briseno) Brent Service: (none) Author Type: Registered Nurse Type: Progress Notes Filed: 10/20/2018 1:42 PM Note Text: PRIMARY CARE COORDINATION FOLLOW-UP NOTE Provider Action/FYI No improvement in LE and open areas look burned per [facility] nurse which she feels is due to Bacitracin. Asking for orders: D/C Bacitracin Apply Calcium Alginate to open areas Apply Zinc Cream to intact skin on legs Wrap legs with soft fluff and Damion wraps for compression Please advise Patient identified by name and date of . YES Summary: Wound nurse from [facility] left message. Pt has no improvement in [...] soft fluff and damion wrap for compression Hotshot Superintendent plan for next outreach: Will follow up one week Signature Remi Kennedy RN October 20, 2018 PROGRESS Observed: 10/20/2018 Status: COMPLETED Source: READING 10:21 AM [facility] REPOSITORY HNO ID: [id number] Author: Remi (Allyson) Brent Service: (none) Author Type: Registered Nurse Type: Progress Notes Filed: 10/20/2018 1:31 PM Note Text: PRIMARY CARE COORDINATION FOLLOW-UP NOTE Provider Action/FYI FYI Patient identified by name and date of . YES Spoke to Kennedi at [facility] and Valentin at [facility] Summary: TC to Kennedi at [facility], informed Dr. Russell Snider is the provider who wrote for the 3 days of Cipro on 10/03 and PCP would like them to contact her to sign the order, verbalized understanding. TC to Valentin at [facility], asked which doctor wrote a script for pt for Cipro 500 mg Daily x 3 days on 10/03, states it was Dr. Russell Snider. TC to Kennedi at [facility], informed PCP received an order to sign for a 3 day course of Cipro 500 mg on 10/04 and needs order signed by PCP. Informed PCP didn't write the order for ATB. PCC will contact pharmacy and ask who wrote order. PCP asking about faxed Cipro order from [facility], states he didn't write an order for 3 day course of Cipro Hotshot Superintendent plan for next outreach: No further follow up needed at this time Adrianne Kennedy RN October 20, 2018 CNPTOUTREACH Observed: 10/20/2018 Status: COMPLETED Source: READING 12:00 AM [facility] REPOSITORY Patient Outreach (FAMPWS) KEVENLUZ Salvador ([id number]) 1940 F Date Time Provider Department 10/20/18 REMI KENNEDY (RN) ANTOINE During your visit today, we recorded the following information about you: Remi Kennedy RN 10/20/2018 1:31 PM Signed PRIMARY CARE COORDINATION FOLLOW-UP NOTE Provider Action/FYI FYI Patient identified by name and date of . YES Spoke to Kennedi at [facility] and Valentin at [facility] Summary: TC to Kennedi at [facility], informed Dr. Russell Snider is the provider who wrote for the 3 days of Cipro on 10/03 and PCP would like them to contact her to sign the order, verbalized understanding. TC to Valentin at [facility], asked which doctor wrote a script for pt for Cipro 500 mg Daily x 3 days on 10/03, states it was Dr. Russell Snider. TC to Kennedi at [facility], informed PCP received an order to sign for a 3 day course of Cipro 500 mg on 10/04 and needs order signed by PCP. Informed PCP didn't write the order for ATB. PCC will contact pharmacy and ask who wrote order. PCP asking about faxed Cipro order from [facility], states he didn't write an order for 3 day course of Cipro Hotshot Superintendent plan for next outreach: No further follow up needed at this time Signature Remi Kennedy RN October 20, 2018 Remi Kennedy RN 10/20/2018 1:42 PM Signed PRIMARY CARE COORDINATION FOLLOW-UP NOTE Provider Action/FYI No improvement in LE and open areas look burned per [facility] nurse which she feels is due to Bacitracin. Asking for orders: D/C Bacitracin Apply Calcium Alginate to open areas Apply Zinc Cream to intact skin on legs Wrap legs with soft fluff and Damion wraps for compression Please advise Patient identified by name and date of . YES Summary: Wound nurse from [facility] left message. Pt has no improvement in [...] soft fluff and damion wrap for compression Hotshot Superintendent plan for next outreach: Will follow up [...] COORDINATION QUICK NOTE Provider Action/FYI TC to [facility] nurse, informed Bacitracin was D/C'd when he [...] Claudio - Fully Assessed Reason for Visit: [employer] Chronic Care [1850] Prescriptions as of 10/20/2018 Sig: DOCUSATE SODIUM [...] 10/20/18 PROGRESS Observed: 10/13/2018 Status: COMPLETED Source: READING 2:58 PM [facility] REPOSITORY HNO ID: [id number] Author: Dina Claudio Service: (none) Author Type: Physician Type: Progress Notes Filed: 10/13/2018 3:01 PM Note Text: FOLLOW UP VISIT - ENDOSCOPY NAME: Luz Franco Baca [facility] NO.: [id number] DATE OF SERVICE: 10/13/2018 : 1940 REFERRING [...] MD CNOV Observed: 10/13/2018 Status: COMPLETED Source: READING 2:10 PM [facility] REPOSITORY Office Visit (GENSWS) LUZ BACA ([id number]) 1940 F Date Time Provider Department 10/13/18 2:10 PM DINA CLAUDIO During your visit today, we recorded the following information about you: Temperature Pulse Blood pressure Weight 97 degrees 68/minute 112/78 91.6 kg Height 1.727 m Dina Claudio MD 10/13/2018 3:01 PM Signed FOLLOW UP VISIT - ENDOSCOPY NAME: Luz Baca CLINIC NO.: [id number] DATE OF SERVICE: 10/13/2018 : 1940 REFERRING [...] Dina Claudio MD Referring Provider: JAMESON KAMARA) [[id number]] Allergies As of Date: 10/13/2018 Noted Allergy [...] Claudio - Fully Assessed Reason for Visit: update [...] 10/13/18 CNCO Observed: 10/13/2018 Status: COMPLETED Source: READING 12:00 AM [facility]AMP[facility] REPOSITORY Letter Text Michael Hogan DO [facility] Department of Vascular Surgery [address] [place] [address] Luz Baca October 13, 2018 RE: Luz Franco Baca To Whom It May Concern, This is to certify that Luz Franco Baca has been under the care of Dr. Michael Hogan. She has exhausted her access options secondary to severe pulmonary hypertension and persistent hypotension. Recommend dialysis catheter for access at this time. Please call if you have any questions. Sincerely, Michael Hogan DO (Electronically signed to expedite processing) PROGRESS Observed: 10/07/2018 Status: COMPLETED Source: [place] 11:10 AM [facility] REPOSITORY HNO ID: [id number] Author: Jameson Adams) Koffi Service: (none) Author Type: Physician Type: Progress Notes Filed: 10/07/2018 11:11 AM Note Text: Reviewed. Continue unna boots and insulin as previously prescribed. PROGRESS Observed: 10/07/2018 Status: COMPLETED Source: READING 10:58 AM [facility] REPOSITORY HNO ID: [id number] Author: Remi Briseno) Brent Service: (none) Author [...] and nurse states dgt wrote down doses. Hotshot Superintendent plan for next outreach: Will follow up one week Signature Remi Kennedy RN October 07, 2018 ELÍASTOUTREADARLENE Observed: 10/07/2018 Status: COMPLETED Source: READING 12:00 AM [facility] REPOSITORY Patient Outreach (FAMPWS) LUZ BACA ([id number]) 1940 F Date Time Provider Department 10/07/18 REMI KENNEDY (RN) ANTOINE During your visit [...] and nurse states dgt wrote down doses. Hotshot Superintendent plan for next outreach: Will follow up [...] Ct - Fully Assessed Reason for Visit: [employer] Chronic Care [3695] Prescriptions as of 10/07/2018 Sig: AMIODARONE 200 [...] 10/07/18 PROGRESS Observed: 10/06/2018 Status: COMPLETED Source: READING 3:25 PM [facility] RE[facility]IT[facility] HNO ID: [id number] Author: Remi Briseno) Brent Service: (none) Author Type: Registered Nurse Type: Progress Notes Filed: 10/06/2018 3:32 PM Note Text: PRIMARY CARE COORDINATION QUICK NOTE Provider Action/FYI FYI Patient identified by name and date . TC from daughter, Octavia, states pt cannot get appt to [facility] until 10/27. Informed PCC [...] PM PROGRESS Observed: 10/06/2018 Status: COMPLETED Source: READING 2:33 PM [facility] REPOSITORY HNO ID: [id number] Author: Tiffani Rao Ct Service: (none) Author Type: (none) [...] CT; Exam(s) Completed: Abdomen/Pelvis SIGNED BY: Tiffani Rawls Rao Chrissy October 06, 2018 2:[address] ABD/PEL WO IVCON Observed: 10/06/2018 Status: F Source: READING 2:33 PM [facility] REPOSITORY * * *Final Report* * * DATE OF EXAM: Oct 06 2018 2:33PM [facility] 0531 - CT ABD/PEL WO IVCON [...] underlying neoplasm. Fat-containing epigastric ventral midline hernia. Top Lift Cutter: PSCB Transcribe Date/Time: Oct 06 2018 2:39P Dictated by : LIAN REDD MD This examination was interpreted and the report reviewed and electronically signed by: LIAN REDD MD on Oct 06 2018 2:50PM EST [id number] PROGRESS Observed: 10/06/2018 Status: COMPLETED Source: READING 11:54 AM [facility] REPOSITORY HNO ID: [id number] Author: Remi Briseno) Brent Service: (none) Author Type: Registered Nurse Type: Progress Notes Filed: 10/06/2018 12:11 PM Note Text: PRIMARY CARE COORDINATION QUICK NOTE Provider Action/FYI FYI Patient identified by name and date . TC from Li [facility], reviewed orders given to office below. Call with BS tomorrow, reinstruct on Lantus insulin doses, apply Unna Boot, updated medication list verbally and will fax AVS PROGRESS Observed: 10/06/2018 Status: COMPLETED Source: READING 11:10 AM [facility] [place] REPOSITORY HNO ID: [id number] Author: Remi Briseno) Brent Service: (none) Author Type: Registered Nurse Type: Progress Notes Filed: 10/06/2018 11:42 AM Note Text: PRIMARY CARE COORDINATION IN OFFICE VISIT WITH PCP Patient has been identified by name and date of . PCP Assessment/Plan: Reviewed PCP plan with patient using Teach Back Discussed BS readings, pt forgot meter. PCC will call [facility] nurse re: BS readings and reviewing PM insulin doses. PCC Plan of Care: Patient concerns: Abdominal pain and constipation PCC Interventions: TC to Clay at [facility], instructed form nurse to apply Unna Boot tomorrow instead of using Bacitracin and Kenalog, verbalized understanding TC to Li at [facility], informed pt was seen by PCP [...] repeat EGD, states it is scheduled at [facility] on 10/31. States pt needs another appt within 30 days of EGD. Scheduled appt for 10/13 at 2:10. Informed pt is having stat CT abd today for ventral hernia pain. Next Office Visit: 11/03/2018 Plan For Next Call: Next week Remi Kennedy RN Remi Kennedy RN October 06, 2018 PROGRESS Observed: 10/06/2018 Status: COMPLETED Source: READING 9:41 AM [facility] REPOSITORY HNO ID: [id number] Author: Jameson Adams) Koffi Service: (none) Author [...] contact seen below. SUMMARY: -Pt discharged from [facility] on 09/23. -Follow up appointment on 10/06 [...] visit. CNOV Observed: 10/06/2018 Status: COMPLETED Source: READING 9:40 AM [facility] REPOSITORY Office Visit (FAMPWS) BACALUZ NAVARRO ([id number]) 1940 F Date Time Provider Department 10/06/18 9:40 AM JAMESON KAMARA) FAMPWS During your visit today, we recorded the following information about you: Pulse Respiration Blood pressure Weight 88/minute 20/minute 112/66 93 kg Jameson Kamara MD 10/06/2018 1:26 PM Signed Chief Complaint Patient presents with: Hospital F/U: TCM 14 Pain: pt states hernia pain is a 10/ HPI Luz Baca is a 78 year old female who presents here today for Hospital Discharge Follow up. Patient admitted to [facility] from 09/22 to 09/23 after developing hypotension [...] continue imdur on discharge but discontinue coreg. software development coordinator Remi Kennedy contacted patient early this [...] take Lantus 18 units The other nights, (-W--Wed) pt is to take 28 units Lantus. [...] Diagnosis Date - Arthritis - Atrial fibrillation ([facility]) - CAD (coronary artery disease) stents x9, defibrillator, CABG. Seeing Dr. Cardona - Cardiac defibrillator in place - Cardiomegaly - Carotid artery disease ([facility]) left - Chronic hypoxemic respiratory failure ([facility]) 07/01/2018 - COPD (chronic obstructive pulmonary disease) ([facility]) Dr. Cruz - Depression - Diabetes ([facility]) - Diabetic neuropathy ([facility]) - Edema - ESRD (end stage renal disease) on dialysis ([facility]) ZACH Nieto, Dr. Swartz - GERD (gastroesophageal reflux disease) - Gout with hyperuricemia - HH (hiatus hernia) - HOCM (hypertrophic obstructive cardiomyopathy) ([facility]) S/P Septal Myectomy in 2003. Now with LVEF 50% and mod/severe pulm HTN with tricuspid regurgitation - HTN (hypertension) - Hyperlipidemia - Morbid obesity with BMI of 40.0-44.9, adult ([facility]) - Presence of combination internal cardiac defibrillator (ICD) and pacemaker - Sleep apnea 2011 not on CPAP, unable to tolerate mask 02/2017 - SVT (supraventricular tachycardia) ([facility]) NSVT and questionable VT in 2003 post [...] age 89, HTN - Heart Failure Mother [place] - Cancer Father age 71, lung cancer [...] contact seen below. SUMMARY: -Pt discharged from [facility] on 09/23. -Follow up appointment on 10/06 [...] present at today?s visit. Referring Provider: JAMESON KAMARA) [[id number]] Allergies As of Date: 10/06/2018 Noted Allergy [...] 45 capsuleRfl: 2 CT ABD/PEL WO IVCON [[id number]] Order #: [id number] FUTURE insulin glargine (LANTUS SOLOSTAR U-100 INSULIN) 100 unit/mL (3 mL) inpnNight before dialysis (Wed, and ) pt is to take Lantus 18 units The other nights, (--Wed) pt is to take 28 units Lantus.Disp: Rfl: ondansetron (ZOFRAN) 4 mg tabletTake 1 tablet by mouth every 8 hours as needed.Disp: 30 tabletRfl: 2 CONSULT TO SKIN CARE TEAM [[id number]] Order #: [id number]: 1 Prescriptions as of 10/06/2018 Sig: AMIODARONE [...] Med Update Sig: Night before dialysis (Sun, and ) pt [...] 10/06/18 PROGRESS Observed: 10/06/2018 Status: COMPLETED Source: READING 9:39 AM [facility] REPOSITORY O ID: [id number] Author: Jameson Adams) Koffi Service: (none) Author Type: Physician Type: Progress Notes Filed: 10/06/2018 1:26 PM Note Text: Chief Complaint Patient presents with: Hospital F/U: TCM 14 Pain: pt states hernia pain is a / HPI Luz Baca is a 78 year old female who presents here today for Hospital Discharge Follow up. Patient admitted to [facility] from 09/22 to 09/23 after developing hypotension [...] continue imdur on discharge but discontinue coreg. software development coordinator Remi Kennedy contacted patient early this [...] (HCC) left - Chronic hypoxemic respiratory failure ([facility]) 07/01/2018 - COPD (chronic obstructive pulmonary disease) ([facility]) Dr. Cruz - Depression - Diabetes ([facility]) - Diabetic neuropathy ([facility]) - Edema - ESRD (end stage renal disease) on dialysis ([facility]) ZACH Nieto, Dr. Swartz - GERD (gastroesophageal reflux disease) - Gout with hyperuricemia - HH (hiatus hernia) - HOCM (hypertrophic obstructive cardiomyopathy) ([facility]) S/P Septal Myectomy in 2003. Now with LVEF 50% and mod/severe pulm HTN with tricuspid regurgitation - HTN (hypertension) - Hyperlipidemia - Morbid obesity with BMI of 40.0-44.9, adult ([facility]) - Presence of combination internal cardiac defibrillator (ICD) and pacemaker - Sleep apnea 2011 not on CPAP, unable to tolerate mask 02/2017 - SVT (supraventricular tachycardia) ([facility]) NSVT and questionable VT in 2003 post [...] age 89, HTN - Heart Failure Mother PA - Cancer Father age 71, lung cancer [...] MD CNPTOUTREACH Observed: 10/06/2018 Status: COMPLETED Source: READING 12:00 AM [facility] REPOSITORY Patient Outreach (FAMPWS) LUZ BACA ([id number]) 1940 F Date Time Provider Department 10/06/18 REMI KENNEDY (ALLYSON) FAMPWS During your visit today, we recorded [...] constipation PCC Interventions: TC to Clay at [facility], instructed form HH nurse to apply Unna Boot tomorrow instead of using Bacitracin and Kenalog, verbalized understanding TC to Li at [facility], informed pt was seen by PCP today and reviewed abd pain, stat CT, Medication orders and refills. Instructed nurse to call from home tomorrow with pt's BS [facility] and to re-instruct patient and daughter with correct dose of PM Lantus insulin: Night before dialysis (Sun, and ) pt is to take Lantus 18 units The other nights, (---Wed) pt is to take 28 units Lantus. Gave PCC name and number so they can call directly. TC to Jonny at Dr. Claudio's office, discussed pt's repeat EGD, states it is scheduled at [facility] on 10/31. States pt needs another [...] name and date . TC from Li, [facility], reviewed orders given to office below. Call with BS tomorrow, reinstruct on Lantus insulin doses, apply Unna Boot, updated medication list verbally and will fax AVS Remi Kennedy RN 10/06/2018 3:32 PM Signed PRIMARY CARE COORDINATION QUICK NOTE Provider Action/FYI FYI Patient identified by name and date . TC from daughter, Octavia, states pt cannot get appt to [facility] until 10/27. Informed PCC spoke with PCP and he is okay with waiting until then for appt because the [facility] nurse is coming tomorrow to put [...] Ct - Fully Assessed Reason for Visit: [employer]-In Office Visit [8621] Prescriptions as of 10/06/2018 Sig: AMIODARONE 200 [...] FOR* Encounter Status:Closed by REMI KENNEDY on 10/06/18 PROGRESS Observed: 10/05/2018 Status: COMPLETED Source: READING 2:28 PM [facility] [place] REPOSITORY HNO ID: [id number] Author: Jameson Adams) Koffi Service: (none) Author Type: Physician Type: Progress Notes Filed: 10/05/2018 2:28 PM Note Text: Reviewed. Thanks. PROGRESS Observed: 10/05/2018 Status: COMPLETED Source: READING 1:53 PM [facility] REPOSITORY HNO ID: [id number] Author: Remi Briseno) Brent Service: (none) Author [...] RN PROGRESS Observed: 10/04/2018 Status: COMPLETED Source: READING 6:14 PM [facility] REPOSITORY HNO ID: [id number] Author: Jameson Adams) Koffi Service: (none) Author [...] updated. PROGRESS Observed: 10/03/2018 Status: COMPLETED Source: READING 4:41 PM [facility] REPOSITORY HNO ID: [id number] Author: Remi Briseno) Brent Service: (none) Author [...] Octavia mesa Summary: Medications reviewed. See above Hotshot Superintendent plan for next outreach: Will follow up one week Signature Remi Kennedy RN October 03, 2018 CNPN Observed: 10/03/2018 Status: COMPLETED Source: READING 12:00 AM [facility] REPOSITORY [facility] LUZ [facility] ([id number]) 1940 F Date Time Provider Department 10/03/18 [facility] KAMARA) [facility] During your visit today, we recorded the following information about you: Jenni Jacobo RN 10/03/2018 9:50 AM Signed Home Health nurse Li calling from [facility] #[phone]. Reports patient has PCP appt. This , 10/06 for hospital/SNF follow up. Patient showed home health nurse a few medications that she has at home but is not on discharge list from SNF. She will bring to upcoming appointment to review with PCP in office to reconcile medications. After 10/06 appointment, Please fax office note and updated med list to [facility] at fax # [phone]. Thank you, ALLYSON Epps MD 10/03/2018 10:14 [...] Encounter Status:Closed by REMI KENNEDY on 10/03/18 CNPTOUTREA Observed: 10/03/2018 Status: COMPLETED Source: READING 12:00 AM [facility] REPOSITORY Patient Outreach (FAMPWS) LUZ BACA ([id number]) 1940 F Date Time Provider Department 10/03/18 [...] Octavia mesa Summary: Medications reviewed. See above Hotshot Superintendent plan for next outreach: Will follow up [...] RN - Fully Assessed Reason for Visit: [employer] [facility] Follow Up [9581] Cmt: BRANDIE F/U Call #1 Order(s):metoclopramide HCl [...] cardiomyopathy) * 01/23/2018 More... SVT (supraventricular tachycardia) ([facility]) [I47.1] 01/21/2018 More... Carotid artery disease (HCC) [...] 10/05/18 PROGRESS Observed: 09/27/2018 Status: COMPLETED Source: READING 1:09 PM [facility] REPOSITORY [facility] ID: [id number] Author: Jose C Rodriguez Service: (none) Author [...] Diagnosis Date - Arthritis - Atrial fibrillation ([facility]) - CAD (coronary artery disease) stents x9, defibrillator, CABG. Seeing Dr. Cardona - Cardiac defibrillator in place - Cardiomegaly - Carotid artery disease ([facility]) left - Chronic hypoxemic respiratory failure ([facility]) 07/01/2018 - COPD (chronic obstructive pulmonary disease) ([facility]) Dr. Cruz - Depression - Diabetes ([facility]) - Diabetic neuropathy ([facility]) - Edema - ESRD (end stage renal disease) on dialysis ([facility]) ZACH Nieto, Dr. Swartz - GERD (gastroesophageal reflux disease) - Gout with hyperuricemia - HH (hiatus hernia) - HOCM (hypertrophic obstructive cardiomyopathy) ([facility]) S/P Septal Myectomy in 2003. Now with LVEF 50% and mod/severe pulm HTN with tricuspid regurgitation - HTN (hypertension) - Hyperlipidemia - Morbid obesity with BMI of 40.0-44.9, adult ([facility]) - Presence of combination internal cardiac defibrillator (ICD) and pacemaker - Sleep apnea 2011 not on CPAP, unable to tolerate mask 02/2017 - SVT (supraventricular tachycardia) ([facility]) NSVT and questionable VT in 2003 post [...] DPM CNOV Observed: 09/27/2018 Status: COMPLETED Source: READING 12:55 PM [facility] REPOSITORY Office Visit (PODIWS) LUZ BACA ([id number]) 1940 F Date Time Provider Department 09/27/18 [...] Diagnosis Date - Arthritis - Atrial fibrillation ([facility]) - CAD (coronary artery disease) stents x9, defibrillator, CABG. Seeing Dr. Cardona - Cardiac defibrillator in place - Cardiomegaly - Carotid artery disease ([facility]) left - Chronic hypoxemic respiratory failure ([facility]) 07/01/2018 - COPD (chronic obstructive pulmonary disease) ([facility]) Dr. Cruz - Depression - Diabetes ([facility]) - Diabetic neuropathy ([facility]) - Edema - ESRD (end stage renal disease) on dialysis ([facility]) Rubens Keyes [facility], Dr. Swartz - GERD (gastroesophageal reflux disease) - Gout with hyperuricemia - HH (hiatus hernia) - HOCM (hypertrophic obstructive cardiomyopathy) ([facility]) S/P Septal Myectomy in 2003. Now with LVEF 50% and mod/severe pulm HTN with tricuspid regurgitation - HTN (hypertension) - Hyperlipidemia - Morbid obesity with BMI of 40.0-44.9, adult ([facility]) - Presence of combination internal cardiac defibrillator (ICD) and pacemaker - Sleep apnea 2011 not on CPAP, unable to tolerate mask 02/2017 - SVT (supraventricular tachycardia) ([facility]) NSVT and questionable VT in 2003 post [...] Rodriguez DPM Referring Provider: JOSE C RODRIGUEZ [[id number]] Allergies As of Date: 09/27/2018 Noted Allergy [...] 09/27/18 PROGRESS Observed: 09/27/2018 Status: COMPLETED Source: READING 12:51 PM [facility] REPOSITORY HNO ID: [id number] Author: Katie Gonzalez RN Service: (none) Author [...] compression. PROGRESS Observed: 09/27/2018 Status: COMPLETED Source: READING 10:33 AM [facility] REPOSITORY HNO ID: [id number] Author: Aren Cardona Service: (none) Author Type: [...] restart Beta lenny for ASHD with prior PA or prior LVEF<40 (NQF 0070) - COPD [...] her to discuss this further with her financial services sales representative and Dr. Kamara. Amiodarone will be continued [...] MD CNOV Observed: 09/27/2018 Status: COMPLETED Source: READING 10:15 AM [facility] REPOSITORY Office Visit (CAWSTR) LUZ BACA ([id number]) 1940 F Date Time Provider Department 09/27/18 [...] restart Beta lenny for ASHD with prior PA or prior LVEF<40 (NQF 0070) - COPD [...] her to discuss this further with her financial services sales representative and Dr. Kamara. Amiodarone will be continued [...] the following areas and commit to making [place] [facility] changes. EAT A WHOLE FOOD, PLANT BASED [...] in your area. Referring Provider: AREN CARDONA [[id number]] Allergies As of Date: 09/27/2018 Noted Allergy [...] the following areas and commit to making [place] [facility] [place] changes. EAT A WHOLE FOOD, PLANT BASED [...] 09/27/18 PROGRESS Observed: 09/26/2018 Status: COMPLETED Source: READING 4:26 PM [facility] REPOSITORY HNO ID: [id number] Author: Remi (Rn) Brent Service: (none) Author [...] might be hidden SUMMARY: -Pt discharged from [facility] on 09/23. -Follow up appointment on 10/06 [...] PM LUDA Observed: 09/26/2018 Status: COMPLETED Source: READING 12:00 AM [facility] REPOSITORY Patient Outreach (FAMPWS) LUZ BACA ([id number]) 1940 F Date Time Provider Department 09/26/18 REMI KENNEDY (ALLYSON) FAMPWS During your visit today, we recorded [...] might be hidden SUMMARY: -Pt discharged from [facility] on 09/23. -Follow up appointment on 10/06 [...] CONSULT PROG Observed: 09/23/2018 Status: COMPLETED Source: READING 5:30 PM [facility] OTHER CAMPUS REPOSITORY HNO ID: [id number] Author: Michael Hogan Service: Vascular Surgery Author [...] secondary to hypotension. Will discuss with her equipment installer on outpatient basis. SUBJECTIVE INTERVAL HPI: Denies [...] - - (!) 49 - - - 12/07/18 1335 145/64 - - 73 - - [...] CASE MANAGEM Observed: 09/23/2018 Status: COMPLETED Source: READING 5:28 PM [facility] OTHER [facility] REPOSITORY HNO ID: [id number] Author: Gia Larios (Sw) Service: (none) Author Type: Director Of Labor And Delivery Type: Care Mgt Progress Note Filed: 09/23/2018 5:32 PM Note Text: CARE MANAGEMENT DISCHARGE NOTE SERVICE DATE: 09/23/2018 SERVICE TIME: 5:15 pm LOS: 0 days Admission Date: 09/22/2018 DISCHARGE ARRANGEMENT (list agency and phone number) [facility] - Nursing, PT and OT Provider: [facility] Care CAREGIVER ASSESSMENT: Caregiver is ready, willing and able to meet the patient's needs as recommended by the inter-professional team? Yes Patient's transition needs and plan for meeting these needs: Pt is from home with supportive daughter and will begin [facility] services Does the patient have an acute stroke diagnosis, or has the patient had a stroke during this admission? No HANDOFF COMMUNICATION: Primary Care Physician: Dr. Kamara TRANSPORTATION ARRANGEMENTS: Car via daughter SW received phone call from 2N ETHNIC ORIGINS TEACHER that pt received d/c orders tonight. F2F and d/c order sent to [facility]. Spoke with 2N RN who confirmed pt's daughter is present to provide transportation and confirmed she brought the pt's portable O2. SOC to be sent to PCP. SIGNATURE: TAMELA MARINA PATIENT NAME: Luz Baca DATE: September 23, 2018 TIME: 5:28 PM PAGER/CONTACT #: [phone] CNDS Observed: 09/23/2018 Status: COMPLETED Source: READING 5:12 PM [facility] OTHER [facility]AMP[facility] REPOSITORY O ID: [id number] Author: Salima Marino Jr. Service: Hospital Medicine [...] Hospital * (Principal)ESRD (end stage renal disease) ([facility]) 09/20/2018 - Present Current Assessment AND Plan [...] use but should be discussed with her marketing account executive since she has significant heart disease AV fistula ([facility]) 09/22/2018 - Present Current Assessment AND Plan Assessment: S/p fistulogram yesterday - hematoma to the right upper arm bigger today, discussed with vascular surgery; ok to discharge Complains of minor right arm pain PLAN: Probably needs another intervention or a creation of a new AVF per nephrology Tylenol PRN for pain COPD (chronic obstructive pulmonary disease) ([facility]) Unknown - Present Current Assessment AND Plan Assessment: Former smoker with 41 pack year history, quit in 2003 On home oxygen PLAN: Continue home duonebs PRN Continue O2 Atrial fibrillation ([facility]) 09/23/2010 - Present Current Assessment AND Plan [...] unspecified vessel or lesion type, unspecified whether prairie band or transplanted heart !! insulin glargine (LANTUS [...] polyneuropathy associated with type 2 diabetes mellitus ([facility]) metoclopramide HCl (REGLAN) 5 mg Take 5 [...] leg ulcer, limited to breakdown of skin ([facility]) hydrOXYzine HCl (ATARAX) 25 mg Take 25 [...] disease, with long-term current use of insulin ([facility]) polyethylene glycol 3350 (MIRALAX) 17 gram/dose powder [...] Diagnoses:Chronic obstructive pulmonary disease, unspecified COPD type ([facility]) budesonide (PULMICORT) 0.5 mg Use 0.5 mg [...] this patient. SIGNATURE: Elsy Adams PA-C PAGER: [phone] DATE: September 23, 2018 TIME: 5:12 PM NURSING PROG Observed: 09/23/2018 Status: COMPLETED Source: READING 4:27 PM [facility] OTHER [facility] REPOSITORY HNO ID: [id number] Author: Yi (Rn) ALLYSON Taylor Service: Dialysis Author Type: Registered Nurse Type: Nursing Progress Note Filed: 09/23/2018 4:28 PM Note Text: HD X 3.5 HOURS ON 2K BATH. UF-1400ML TOLERATED WELL. RIJ DSG CHANGED NO S/S INFECTION NOTED. VITALS STABLE POST TREATMENT ALLIED HEALTH Observed: 09/23/2018 Status: COMPLETED Source: READING 12:41 PM [facility] OTHER [facility]AMP[facility] REPOSITORY HNO ID: [id number] Author: Chaplain Chaudhry (Chaplain) Service: Spiritual Care Author Type: Rail Switchman Type: Allied Health Filed: 09/23/2018 12:48 PM Note Text: SPIRITUAL CARE Spiritual Care Visit Record Name: Luz Baca Date: September 23, 2018 Type of Visit: Referral from RN. Purpose of Referral (if stated): Prayers Urgency of Visit: Routine Visit was with (pt, family, other) and name(s): Pt. SPIRITUAL CARE VISIT Spiritual Distress: 4 - Rail Switchman Observation. Spiritual Distress Scale (1-10 with 1= [...] / Illness / Injury Suffering 3. Spiritual Yazidi Issues, Beliefs Significant to Healing, or Other Notes: Pt stated that her biggest frustration is waiting to hear from her physician as to what the plan of action may be to address the pt's ongoing pain. Pt expressed her desire to find God's purpose behind her suffering; office services associate assisted pt in looking for ways in [...] Needed Only Follow-up Notes: Informed patient of Rail Switchman availability Rail Switchman Signature: Chaplain Isidoro To contact the Spiritual Care Department: Please call [phone] or Page the On-Call Rail Switchman at pager [phone] Thank you for the opportunity to be of service. This is an electronically created document. IF PRINTED, PLEASE DO NOT REMOVE FROM THE CHART OR MODIFY PRINTED COPY. CASE MGT INIT Observed: 09/23/2018 Status: COMPLETED Source: ELZA JIM 10:36 AM [facility]IN[facility] OTHER CAMPUS REPOSITORY HNO ID: [id number] Author: Jia Means (Sw) Service: Care Management Author Type: Director Of Labor And Delivery Type: Care Mgt Initial Assessment Filed: 09/23/2018 10:47 AM Note Text: CARE MANAGEMENT: ASSESSMENT AND DISCHARGE PLAN SERVICE DATE: 09/23/2018 SERVICE TIME: 10:37 AM PRIMARY CARE PHYSICIAN: Confirmed with pt Jameson Kamara MD ADMISSION STATUS: Observation MEDICAL: Patient/Fingernail Technician Stated Goals: To have reduction in symptoms To improve my functional status To return home to life as it was Health Insurance: MEDICARE A AND B None Health Issues Impacting Discharge Plan: Chronic Afib., ESRD, HTN, COPD, with pacemaker Last Admission Date: Previous admit date: 01/28/2018 Is this Within the Past 30 days? No Advance Directive: Current Advance Directive: Health Care Power of Weight Calculator;Living Will In Chart: Yes Up To Date [...] Care? None pt just finished services with [facility] and is receptive to starting their services again upon dc. Equipment Prior to Admission: Oxygen 2.5 liters per minute Has the Patient Been in a Senior Living Facility in the Past 30 days? No SOCIAL: Living Arrangement: Home Lives With: Daughter Financial Resources: Retired Primary Contact: Extended Emergency Contact Information Primary Emergency Contact: Octavia Soliman Address: [address] [place] [address] OF [facility] Mobile Relation: Daughter Supportive: Yes Other Important [...] 0 I feel financially burdened by my vdn-at-okkkjo expenses for my prescription medication: Disagree completely [...] whom resides with her. Pt receptive to [facility] again, she had been active with them recently and is receptive to beginning their services again. Pt had been at [facility] in 02/2018, but stated that she asked her dtr to get her out of there after her first weekend. She noted that care was good, but the environment were not up to her standards. Ref sent to [facility] - will await F2F. Pt has transportation upon dc.. Active with [employer] for 2.5 L O2. Pt's dtr can transport upon dc. Pt active with PCC: remi Kennedy - warm handoff made. CM to follow and support. SIGNATURE: YVES Reed PATIENT NAME: Luz Baca DATE: September 23, 2018 TIME: 10:36 AM PAGER/CONTACT #: [phone] CONSULT Observed: 09/23/2018 Status: COMPLETED Source: READING 9:12 AM [facility] OTHER CAMPUS REPOSITORY O ID: [id number] Author: Malena Bray Service: Nephrology Author Type: [...] she dialyzes on a MWF schedule at [facility] under the care of my partner Dr. Swartz. She dialyzes for 3.5hr with a EDW of 92.5kg. She has intradialytic hypotension and receives procrit 5000 units with each treatment. Doesn't currently receive heparin. Access issues as above. PAST MEDICAL HISTORY: PAST MEDICAL HISTORY Diagnosis Date - Arthritis - Atrial fibrillation ([facility]) - CAD (coronary artery disease) stents x9, defibrillator, CABG. Seeing Dr. Cardona - Cardiac defibrillator in place - Cardiomegaly - Carotid artery disease ([facility]) left - Chronic hypoxemic respiratory failure ([facility]) 07/01/2018 - COPD (chronic obstructive pulmonary disease) ([facility]) Dr. Cruz - Depression - Diabetes ([facility]) - Diabetic neuropathy ([facility]) - Edema - ESRD (end stage renal disease) on dialysis ([facility]) [facility], Dr. Swartz - GERD (gastroesophageal reflux disease) - Gout with hyperuricemia - HH (hiatus hernia) - HOCM (hypertrophic obstructive cardiomyopathy) ([facility]) S/P Septal Myectomy in 2003. Now with LVEF 50% and mod/severe pulm HTN with tricuspid regurgitation - HTN (hypertension) - Hyperlipidemia - Morbid obesity with BMI of 40.0-44.9, adult ([facility]) - Presence of combination internal cardiac defibrillator (ICD) and pacemaker - Sleep apnea 2011 not on CPAP, unable to tolerate mask 02/2017 - SVT (supraventricular tachycardia) ([facility]) NSVT and questionable VT in 2003 post [...] age 89, HTN - Heart Failure Mother PA - Cancer Father age 71, lung cancer [...] nausea, vomiting, or diarrhea : On dialysis RETURN TO FACTORY CLERK: Not reviewed MUSCULOSKELETAL: Negative for joint pain [...] use but should be discussed with her marketing account executive since she has significant heart disease 3. Probably needs another intervention or a creation of a new AVF 4. Hold WILLY today OK with me for DC after dialysis if tolerates ok SIGNATURE: Malena Bray MD DATE: September 23, 2018 TIME: 9:12 AM September 23, 2018 09/23/2018 NURSING PROG Observed: 09/23/2018 Status: COMPLETED Source: READING 8:00 AM CLINIC OTHER CAMPUS REPOSITORY HNO ID: [id number] Author: Reanna OsheaRn) ALLYSON Davalos Service: Nursing Author Type: Registered Nurse Type: Nursing Progress Note Filed: 09/23/2018 7:12 PM Note Text: Nursing Progress Note Patient Name: Luz Baca Patient [facility]: [id number] Daily Note: Pt AANDO x 3, c/o [...] RN CBC Collected: 09/23/2018 Status: F Source: READING 4:31 AM [facility] OTHER CAMPUS REPOSITORY TYPE CODE TESTS RESULT [...] 9.6 Performed By: #### CBC, RFP #### [facility] [address] [facility] [phone] RENAL FUNCTION PANEL Collected: 09/23/2018 Status: F Source: READING 4:31 AM [facility] OTHER CAMPUS REPOSITORY TYPE CODE TESTS RESULT OUT OF REFERENCE UNITS RANGE LAB ALB 3.9-4.9 g/dL Low Albumin 3.1 LAB CA 8.5-10.2 mg/dL Low Calcium, Total 8.4 LAB PHOS 2.7-4.8 mg/dL High Phosphorus 6.5 LAB GLU 74-99 mg/dL Glucose 88 Result Comment: The [place] Diabetes Association (ADA) provides guidance for cutoff [...] Standards of Medical Care in Diabetes 2016, [place] [employer]. Diabetes Care. 2016.39(Suppl 1). LAB [...] GFR. Performed By: #### CBC, RFP #### [facility] [address] [facility] [phone] CNCO Observed: 09/23/2018 Status: COMPLETED Source: READING 12:00 AM CLINIC OTHER CAMPUS REPOSITORY Letter Text September 23, 2018 Luz Baca [address] [facility] [address] Dear Ms. Baca, The nurses and staff of [facility] hope this letter finds you feeling well [...] free to contact me, Kalpana Duque RN ([phone]) or email me at, [email or web address] Additionally, you will receive a survey [...] participation and thank you for choosing the [facility] for your health needs. Sincerely, Nurse Developer Evangelist: Kalpana Duque RN ([phone]) [facility] Unit: [address] [place] [address] NURSING PROG Observed: 09/22/2018 Status: COMPLETED Source: READING 6:48 PM [facility] OTHER CAMPUS REPOSITORY HNO ID: [id number] Author: Reanna (Rn) ALLYSON Davalos Service: Nursing Author Type: Registered Nurse Type: Nursing Progress Note Filed: 09/22/2018 6:57 PM Note Text: Nursing Progress Note Patient Name: Luz Baca Patient Location: [facility]-0235/MM-[id number] Daily Note: Pt AANDO x 3, AV [...] HISTORY PHYSICAL Observed: 09/22/2018 Status: COMPLETED Source: READING 5:13 PM CLIN[facility] OTHER CAMPUS REPOSITORY HNO ID: [id number] Author: Elsy Adams (Pa) Service: Hospital Medicine Author Type: Physician Tester Electronic Scale Type: HANDP Filed: 09/22/2018 5:15 PM Note [...] AND WEEKEND COVERAGE: Nights: Please contact pager [phone]. SUBJECTIVE Chief Complaint: Hypotension s/p fistulogram HPI: [...] Diagnosis Date - Arthritis - Atrial fibrillation ([facility]) - CAD (coronary artery disease) stents x9, defibrillator, CABG. Seeing Dr. Cardona - Cardiac defibrillator in place - Cardiomegaly - Carotid artery disease ([facility]) left - Chronic hypoxemic respiratory failure ([facility]) 07/01/2018 - Chronic kidney disease (CKD) stage G3b/A2, moderately decreased glomerular filtration rate (GFR) between 30-44 mL/min/1.73 square meter and albuminuria creatinine ratio between 30-299 mg/g ([facility] [facility]) Dr. Martin - COPD (chronic obstructive pulmonary disease) ([facility]) Dr. Cruz - Depression - Diabetes ([facility]) - Diabetic neuropathy ([facility]) - Edema - ESRD (end stage renal disease) on dialysis ([facility]) [facility], Dr. Martin - GERD (gastroesophageal reflux disease) - Gout with hyperuricemia - HH (hiatus hernia) - HOCM (hypertrophic obstructive cardiomyopathy) ([facility]) S/P Septal Myectomy in 2003. Now with LVEF 50% and mod/severe pulm HTN. - HTN (hypertension) - Hyperlipidemia - Morbid obesity with BMI of 40.0-44.9, adult ([facility]) - Presence of combination internal cardiac defibrillator (ICD) and pacemaker - Sleep apnea 2011 not on CPAP, unable to tolerate mask 02/2017 - SVT (supraventricular tachycardia) ([facility]) NSVT and questionable VT in 2003 post [...] age 89, HTN - Heart Failure Mother PA - Cancer Father age 71, lung cancer [...] Hospital * (Principal)ESRD (end stage renal disease) ([facility]) 09/20/2018 - Present Current Assessment AND Plan Assessment: Patient had dialysis yesterday and is being scheduled for dialysis here tomorrow PLAN: Dialysis tomorrow Renal diet Hypotension 09/22/2018 - Present Current Assessment AND Plan Assessment: Patient was 85/58 after procedure today; now up to 111/48 PLAN: Hold Imdur and coreg for now AV fistula ([facility]) 09/22/2018 - Present Current Assessment AND Plan Assessment: S/p fistulogram today - hematoma to the right upper arm Complains of minor right arm pain PLAN: Dr. 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, with long-term current use of insulin ([facility]) 09/23/2004 - Present Current Assessment AND Plan [...] Prophylaxis/Anticoagulants 09/22/18 1645 activity - mobilize patient (il,nm) VTE Prophylaxis: No mechanical prophylaxis due to extensive blistering on bilateral lower extremities SIGNATURE: Elsy Adams PA-C PATIENT NAME: Luz Condein DATE: September 22, 2018 TIME: 5:13 PM PAGER/CONTACT #: [id number] NUTRITION Observed: 09/22/2018 Status: COMPLETED Source: [place] 4:25 PM CLINIC OTHER [place] REPOSITORY HNO ID: [id number] Author: Eduardo Gomez) Bibiana Service: Nutrition Therapy [...] Admitting Diagnosis: ESRD (end stage renal disease) ([facility]) [N18.6] Malfunctioning AV access Present Diet Order: [...] NURSING PROG Observed: 09/22/2018 Status: COMPLETED Source: [place] 2:34 PM [facility] OTHER [place] REPOSITORY HNO ID: [id number] Author: Mariluz (Rn) ALLYSON White Service: Nursing Author Type: Registered Nurse Type: Nursing Progress Note Filed: 09/22/2018 2:51 PM Note Text: Nursing Progress Note Patient Name: Luz Baca [place] Report from Sukhwinder VALADEZ, waiting to give report to Piper RN. Family with pt. Made aware of bed assignment This note was completed by: Mariluz White RN [id number] report to Leila Valadez on 2N, PROGRESS Observed: 09/22/2018 Status: COMPLETED Source: [place] 2:09 PM [facility] REPOSITORY HNO ID: [id number] Author: Michael Hogan Service: Vascular Surgery Author [...] not there on . She goes to [facility] in [place]. If fistula thromboses, will plan for creation of brachiobasilic NURSING PROG Observed: 09/22/2018 Status: COMPLETED Source: [place] 2:06 PM [facility] REPOSITORY HNO ID: [id number] Author: Sukhwinder OsheaRn) ALLYSON Parsons Service: Nursing Author Type: Registered Nurse Type: Nursing Progress Note Filed: 09/22/2018 2:16 PM Note Text: 1340 Dr Hogan at bedside. Plan to admit patient. Nursing sales department supervisor notified. Bed assignment received. Room needs to be cleaned. No change in initial assessment to fistula site. NURSING PROG Observed: 09/22/2018 Status: COMPLETED Source: [place] 1:18 PM [facility] REPOSITORY HNO ID: [id number] Author: Li OsheaRn) Chacorta RN Service: (none) Author Type: Registered Nurse Type: Nursing Progress Note Filed: 09/22/2018 1:20 PM Note Text: 12 Lead down at bedside. Dr Hogan read interpretation to her. Dr hogan will call back Uppdated to Sukhwinder EKG Observed: 09/22/2018 Status: F Source: [place] 1:11 PM [facility] OTHER CAMPUS REPOSITORY NAME : LUZ BACA PID : [id number] : 1940 Gender : Female Race : ORD : [id number] Procedure Date : Sep 22 2018 13:11:15 [...] ms QTC Calculation(Bezet) : 552 ms R [place] : 259 degrees T [place] : 99 degrees Test Reason : Arrhythmia Location : 8 : OR/RR 15 Overread By : CLAY GARCIA D.O. Edited By : CLAY GARCIA D.O. Referred By : DR HOGAN, Acquired by : Shirley Bello NURSING PROG Observed: 09/22/2018 Status: COMPLETED Source: [place] 12:48 PM [facility] OTHER CAMPUS REPOSITORY HNO ID: [id number] Author: Li (Rn) Chacorta RN Service: (none) Author Type: Registered Nurse Type: Nursing Progress Note Filed: 09/22/2018 12:49 PM Note Text: Dr Hogan called vs obtained and Dr horvath. Dr hogan does not want pt to be discharged and will call back and check on pt. NURSING PROG Observed: 09/22/2018 Status: COMPLETED Source: [place] 12:30 PM [facility] OTHER CAMPUS REPOSITORY HNO ID: [id number] Author: Sukhwinder OsheaRn) ALLYSON Parsons Service: Nursing [...] NURSING PROG Observed: 09/22/2018 Status: COMPLETED Source: [place] 11:40 AM [facility] REPOSITORY HNO ID: [id number] Author: Mariluz (Rn) ALLYSON White Service: Nursing Author Type: Registered Nurse Type: Nursing Progress Note Filed: 09/22/2018 11:42 AM Note Text: Nursing Progress Note Patient Name: Luz Baca [place] pt arrived to PACU 4 awake taking [...] OP NOT Observed: 09/22/2018 Status: COMPLETED Source: [place] 9:52 AM [facility] REPOSITORY HNO ID: [id number] Author: Michael Hogan Service: Vascular Surgery Author Type: Physician Type: Brief Op Note Filed: 09/22/2018 11:03 AM Note Text: BRIEF OP NOTE LOG ID: [id number] Surgery/Procedure Date: 09/22/2018 Incision/Procedure Start Time: 7:57 AM Incision Close/Procedure End Time: Surgeon(s)/Proceduralist(s) and Tester Electronic Scale(s): Surgeon(s) and Role: * Michael Hogan - Primary Procedure(s): Fistulogram- balloon assisted maturation, cephalic vein angioplasty with [id number] mustang, [id number] Director Acute, [id number] Alma, distal cephalic vein angioplasty inflow stenosis [id number] Alma, [id number] Alma Anesthesia: Procedural Sedation Findings: inflow and outflow stenosis Estimated Blood Loss: minimal Specimens: None Complications: None Pre-Op/Pre-Procedure Diagnosis: Failure to mature arteriovenous fistula, Post-Op/Post-Procedure Diagnosis: same SIGNATURE: Michael Hogan DO PATIENT NAME: Luz Baca DATE: September 22, 2018 TIME: 9:52 AM PAGER/CONTACT #: HISTORY PHYSICAL Observed: 09/22/2018 Status: COMPLETED Source: [place] 7:37 AM CLINIC OTHER CAMPUS REPOSITORY HNO ID: [id number] Author: Michael Hogan Service: Vascular Surgery Author [...] Diagnosis Date - Arthritis - Atrial fibrillation ([facility]) - CAD (coronary artery disease) stents x9, defibrillator, CABG. Seeing Dr. Cardona - Cardiac defibrillator in place - Cardiomegaly - Carotid artery disease (HCC) left - Chronic hypoxemic respiratory failure ([facility]) 07/01/2018 - Chronic kidney disease (CKD) stage G3b/A2, moderately decreased glomerular filtration rate (GFR) between 30-44 mL/min/1.73 square meter and albuminuria creatinine ratio between 30-299 mg/g ([facility]) Dr. Martin - COPD (chronic obstructive pulmonary disease) ([facility]) Dr. Cruz - Depression - Diabetes ([facility]) - Diabetic neuropathy ([facility]) - Edema - ESRD (end stage renal disease) on dialysis ([facility]) [facility], Dr. Martin - GERD (gastroesophageal reflux disease) - Gout with hyperuricemia - HH (hiatus hernia) - HOCM (hypertrophic obstructive cardiomyopathy) ([facility]) S/P Septal Myectomy in 2003. Now with LVEF 50% and mod/severe pulm HTN. - HTN (hypertension) - Hyperlipidemia - Morbid obesity with BMI of 40.0-44.9, adult ([facility]) - Presence of combination internal cardiac defibrillator (ICD) and pacemaker - Sleep apnea 2011 not on CPAP, unable to tolerate mask 02/2017 - SVT (supraventricular tachycardia) ([facility]) NSVT and questionable VT in 2003 post [...] age 89, HTN - Heart Failure Mother PA - Cancer Father age 71, lung cancer [...] 22, 2018 TIME: 7:37 AM PAGER/CONTACT #: [id number] NURSING PROG Observed: 09/22/2018 Status: COMPLETED Source: READ[place] 6:56 AM [facility] REPOSITORY HNO ID: [id number] Author: Frantz OsheaRn) ALLYSON Wagner Service: Nursing Author Type: Registered Nurse Type: Nursing Progress Note Filed: 09/22/2018 6:58 AM Note Text: Pts daughter and ride has to leave around 9 and will not be back to the hospital until around 1. PT ED Observed: 09/22/2018 Status: COMPLETED Source: READ[place] 6:54 AM [facility] REPOSITORY HNO ID: [id number] Author: Frantz Briseno) ALLYSON Wagner Service: Nursing [...] Signed By: Frantz Wagner RN In Department: [facility] FINE WIRE DRAWER OPERATIVE NO Observed: 09/22/2018 Status: COMPLETED Source: READ[place] 12:00 AM CLINIC OTHER CAMPUS REPOSITORY O ID: [id number] Author: Michael Hogan Service: Vascular Surgery Author Type: Physician Type: Operative Report Filed: 10/13/2018 2:22 PM Note Text: [facility] - Operative Report LUZ BACA : 1940 AGE: 77. SEX: F PATIENT TYPE: V HOSP SVC: INT LOCATION: [id number] ATTENDING PHYSICIAN: Michael Hogan D.O. CSN NUMBER: [id number] DATE OF SURGERY/PROCEDURE: 09/22/2018 INCISION/PROCEDURE START TIME: 7:57. 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 SURGEON: Michael Hogan D.O. CLIMATOLOGY TEACHER: No Additional Staff SURGERY/PROCEDURE: 1. Fistulogram balloon-assisted maturation with cephalic vein angioplasty with a 3 mm x 100 mm Alma, 5 mm x 200 mm Director Acute, 6 mm x 80 cm Alma. 2. Distal cephalic vein inflow stenosis angioplasty with a 3 mm x 100 mm Alma and a 5 mm x 100 mm Alma. ANESTHESIA: Procedural sedation. INDICATIONS: The patient is [...] PROCEDURE: The patient was taken to the laborer mine. She was placed supine on the Bankruptcy Law Specialist table. Her right arm was prepped and [...] to her arterial anastomosis, exchanged to a 4-Kittitian sheath. I was able to get a Glidewire through the cephalic vein into the central system, performed a fistulogram which demonstrated significant stenosis of her upper arm cephalic vein. It was just small throughout its course into the cephalic arch centrally. We again were able to get a [place] catheter through that centrally, she was widely patent. With this, she was exchanged to a 6-Kittitian sheath. She was heparinized, and I dilated the area of stenosis with initially a 3 mm x 100 mm Alma and then sequentially with a 5 mm x 200 mm Director Acute and a 6 mm x 80 mm Alma. She did have improved flow. We decompressed and refluxed proximally. She had an inflow stenosis. With this, our wire and sheath were removed, and a horizontal mattress suture of 3-0 Prolene was applied. I was able to obtain access in a retrograde fashion. I got a wire into the brachial artery. We dilated the inflow with a 3 mm x 100 mm Alma and a 5 mm x 100 mm Alma. Upon completion, she had significant improvement, she [...] were for dialysis today. Michael Hogan D.O. 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, with long-term current use of insulin ([facility]) [E11.22, N18.6, Z79.4, Z99.2] Obesity [E66.09] Gout [M10.9] Pacemaker [Z95.0] Chronic combined systolic and diastolic CHF (congestive heart failure) ([facility]) [I50.42] Pulmonary hypertension ([facility]) [I27.20] Hyponatremia [E87.1] Acute renal failure superimposed on stage 3 chronic kidney disease ([facility]) [N17.9, N18.3] Obesity, Class II, BMI 35-39.9 [E66.9] ESRD on dialysis ([facility]) [N18.6, Z99.2] Chronic hypoxemic respiratory failure ([facility]) [J96.11] Bilateral leg ulcer, limited to breakdown of skin ([facility]) [L97.911, L97.921] ESRD (end stage renal disease) ([facility]) [N18.6] Allergies: Aspirin Bactrim [Sulfamethoxazole-Trimethoprim] Latex Penicillins Tetracycline Atorvastatin Codeine Dilaudid [Hydromorphone (Bulk)] Meperidine Pentazocine Pioglitazone Propoxyphene Date Verified: 09/19/18 Lab Values No results within the last 30 days for the following basenames: K,HCT Progress Notes ([facility]): Jesi Foster, MSN ASSISTANT PLANT CONTROLLER.CHIEF MECHANICAL ENGINEER 09/19/2018 11:00 AM Signed Chief Complaint Patient [...] (HCC) left - Chronic hypoxemic respiratory failure ([facility]) 07/01/2018 - Chronic kidney disease (CKD) stage G3b/A2, moderately decreased glomerular filtration rate (GFR) between 30-44 mL/min/1.73 square meter and albuminuria creatinine ratio between 30-299 mg/g ([facility]) Dr. Martin - COPD (chronic obstructive pulmonary disease) ([facility]) Dr. Cruz - Depression - Diabetes ([facility]) - Diabetic neuropathy ([facility]) - Edema - ESRD (end stage renal disease) on dialysis ([facility]) [facility], Dr. Martin - GERD (gastroesophageal reflux disease) - Gout with hyperuricemia - HH (hiatus hernia) - HOCM (hypertrophic obstructive cardiomyopathy) ([facility]) S/P Septal Myectomy in 2003. Now with LVEF 50% and mod/severe pulm HTN. - HTN (hypertension) - Hyperlipidemia - Morbid obesity with BMI of 40.0-44.9, adult ([facility]) - Presence of combination internal cardiac defibrillator (ICD) and pacemaker - Sleep apnea 2011 not on CPAP, unable to tolerate mask 02/2017 - SVT (supraventricular tachycardia) ([facility]) NSVT and questionable VT in 2003 post [...] age 89, HTN - Heart Failure Mother PA - Cancer Father age 71, lung cancer [...] Stable, bleeding is controlled. Jesi Foster, MSN ASSISTANT PLANT CONTROLLER.CHIEF MECHANICAL ENGINEER Jesi Foster, MSN ASSISTANT PLANT CONTROLLER.CHIEF MECHANICAL ENGINEER 09/19/2018 10:36 AM Signed The product used in the office is called COBAN. A non-stick, pressure wrap. Progress Notes ([facility]): Rylan Cash III MD 09/17/2018 11:34 [...] Diagnosis Date - Arthritis - Atrial fibrillation ([facility]) - CAD (coronary artery disease) stents x9, defibrillator, CABG. Seeing Dr. Cardona - Cardiac defibrillator in place - Cardiomegaly - Carotid artery disease ([facility]) left - Chronic hypoxemic respiratory failure ([facility]) 07/01/2018 - Chronic kidney disease (CKD) stage G3b/A2, moderately decreased glomerular filtration rate (GFR) between 30-44 mL/min/1.73 square meter and albuminuria creatinine ratio between 30-299 mg/g ([facility]) Dr. Martin - COPD (chronic obstructive pulmonary disease) ([facility]) Dr. Cruz - Depression - Diabetes ([facility]) - Diabetic neuropathy ([facility]) - Edema - ESRD (end stage renal disease) on dialysis ([facility]) [facility], Dr. Martin - GERD (gastroesophageal reflux disease) - Gout with hyperuricemia - HH (hiatus hernia) - HOCM (hypertrophic obstructive cardiomyopathy) ([facility]) S/P Septal Myectomy in 2003. Now with LVEF 50% and mod/severe pulm HTN. - HTN (hypertension) - Hyperlipidemia - Morbid obesity with BMI of 40.0-44.9, adult ([facility]) - Presence of combination internal cardiac defibrillator (ICD) and pacemaker - Sleep apnea 2011 not on CPAP, unable to tolerate mask 02/2017 - SVT (supraventricular tachycardia) ([facility]) NSVT and questionable VT in 2003 post [...] age 89, HTN - Heart Failure Mother PA - Cancer Father age 71, lung cancer - Heart Attack Sister - COPD Brother - Heart Paternal Grandmother - Heart Paternal Grandfather - Heart Sister - Diabetes Sister - Heart Sister - Breast Cancer Sister - Diabetes Sister - Hypertension Brother - Diabetes Brother .[facility] Social History Substance Use Topics - Smoking [...] MD PROGRESS Observed: 09/19/2018 Status: COMPLETED Source: READ[place] 10:23 AM [facility] REPOSITORY O ID: [id number] Author: Jesi Espinosa (Environmental Scientist) Kirt Service: (none) Author Type: Nurse Practitioner Type: [...] Diagnosis Date - Arthritis - Atrial fibrillation ([facility]) - CAD (coronary artery disease) stents x9, defibrillator, CABG. Seeing Dr. Cardona - Cardiac defibrillator in place - Cardiomegaly - Carotid artery disease ([facility]) left - Chronic hypoxemic respiratory failure ([facility]) 07/01/2018 - Chronic kidney disease (CKD) stage G3b/A2, moderately decreased glomerular filtration rate (GFR) between 30-44 mL/min/1.73 square meter and albuminuria creatinine ratio between 30-299 mg/g ([facility]) Dr. Martin - COPD (chronic obstructive pulmonary disease) ([facility]) Dr. Cruz - Depression - Diabetes ([facility]) - Diabetic neuropathy ([facility]) - Edema - ESRD (end stage renal disease) on dialysis ([facility]) [facility], Dr. Martin - GERD (gastroesophageal reflux disease) - Gout with hyperuricemia - HH (hiatus hernia) - HOCM (hypertrophic obstructive cardiomyopathy) ([facility]) S/P Septal Myectomy in 2003. Now with LVEF 50% and mod/severe pulm HTN. - HTN (hypertension) - Hyperlipidemia - Morbid obesity with BMI of 40.0-44.9, adult ([facility]) - Presence of combination internal cardiac defibrillator (ICD) and pacemaker - Sleep apnea 2011 not on CPAP, unable to tolerate mask 02/2017 - SVT (supraventricular tachycardia) ([facility]) NSVT and questionable VT in 2003 post [...] age 89, HTN - Heart Failure Mother PA - Cancer Father age 71, lung cancer [...] Z79.01 - Stable, bleeding is controlled. Jesi Foster MSN ASSISTANT PLANT CONTROLLER.CHIEF MECHANICAL ENGINEER CNOV Observed: 09/19/2018 Status: COMPLETED Source: [place] 10:20 AM [facility] REPOSITORY Office Visit (FAMPWS) LUZ BACA ([id number]) 1940 F Date Time Provider Department 09/19/18 10:20 AM JESI FOSTER (POLYSOMNOGRAPHIC TECHNICIAN) [facility] During your visit today, we recorded the following information about you: Temperature Pulse Respiration Blood pressure 97.1 degrees 76/minute 18/minute 108/70 IOANA Ortiz ASSISTANT PLANT CONTROLLER.CHIEF MECHANICAL ENGINEER 09/19/2018 11:00 AM Signed Chief Complaint Patient [...] Diagnosis Date - Arthritis - Atrial fibrillation ([facility]) - CAD (coronary artery disease) stents x9, defibrillator, CABG. Seeing Dr. Cardona - Cardiac defibrillator in place - Cardiomegaly - Carotid artery disease (HCC) left - Chronic hypoxemic respiratory failure ([facility]) 07/01/2018 - Chronic kidney disease (CKD) stage G3b/A2, moderately decreased glomerular filtration rate (GFR) between 30-44 mL/min/1.73 square meter and albuminuria creatinine ratio between 30-299 mg/g ([facility]) Dr. Martin - COPD (chronic obstructive pulmonary disease) ([facility]) Dr. Cruz - Depression - Diabetes ([facility]) - Diabetic neuropathy ([facility]) - Edema - ESRD (end stage renal disease) on dialysis ([facility]) [facility], Dr. Martin - GERD (gastroesophageal reflux disease) - Gout with hyperuricemia - HH (hiatus hernia) - HOCM (hypertrophic obstructive cardiomyopathy) ([facility]) S/P Septal Myectomy in 2003. Now with LVEF 50% and mod/severe pulm HTN. - HTN (hypertension) - Hyperlipidemia - Morbid obesity with BMI of 40.0-44.9, adult ([facility]) - Presence of combination internal cardiac defibrillator (ICD) and pacemaker - Sleep apnea 2011 not on CPAP, unable to tolerate mask 02/2017 - SVT (supraventricular tachycardia) ([facility]) NSVT and questionable VT in 2003 post [...] age 89, HTN - Heart Failure Mother PA - Cancer Father age 71, lung cancer [...] Stable, bleeding is controlled. Jesi Foster, MSN ASSISTANT PLANT CONTROLLER.CHIEF MECHANICAL ENGINEER Jesi Foster, MSN ASSISTANT PLANT CONTROLLER.CHIEF MECHANICAL ENGINEER 09/19/2018 10:36 AM Signed The product used in the office is called COBAN. A non-stick, pressure wrap. Referring Provider: JAMESON KAMARA) [[id number]] Allergies As of Date: 09/19/2018 Noted Allergy [...] of skin of right wrist, subsequent encounter [S62.315T] Other Visit Diagnoses:Xerosis of skin [L85.3] Chronic [...] 09/19/18 [place] Observed: 09/17/2018 Status: COMPLETED Source: READING 11:00 AM [facility] REPOSITORY Office Visit (FAMPWS) LUZ BACA ([id number]) 1940 F Date Time Provider Department 09/17/18 11:00 AM [facility], we recorded the [...] (HCC) left - Chronic hypoxemic respiratory failure ([facility]) 07/01/2018 - Chronic kidney disease (CKD) stage G3b/A2, moderately decreased glomerular filtration rate (GFR) between 30-44 mL/min/1.73 square meter and albuminuria creatinine ratio between 30-299 mg/g ([facility]) Dr. Martin - COPD (chronic obstructive pulmonary disease) ([facility]) Dr. Cruz - Depression - Diabetes ([facility]) - Diabetic neuropathy ([facility]) - Edema - ESRD (end stage renal disease) on dialysis ([facility]) MW, Dr. Martin - GERD (gastroesophageal reflux disease) - Gout with hyperuricemia - HH (hiatus hernia) - HOCM (hypertrophic obstructive cardiomyopathy) ([facility]) S/P Septal Myectomy in 2003. Now with LVEF 50% and mod/severe pulm HTN. - HTN (hypertension) - Hyperlipidemia - Morbid obesity with BMI of 40.0-44.9, adult ([facility]) - Presence of combination internal cardiac defibrillator (ICD) and pacemaker - Sleep apnea 2011 not on CPAP, unable to tolerate mask 02/2017 - SVT (supraventricular tachycardia) ([facility]) NSVT and questionable VT in 2003 post [...] an additional 1 tablet PO after dialysis [facility] metoclopramide HCl (REGLAN) 5 mg tablet [...] age 89, HTN - Heart Failure Mother PA - Cancer Father age 71, lung cancer - Heart Attack Sister - COPD Brother - Heart Paternal Grandmother - Heart Paternal Grandfather - Heart Sister - Diabetes Sister - Heart Sister - Breast Cancer Sister - Diabetes Sister - Hypertension Brother - Diabetes Brother .[facility] Social History Substance Use Topics - Smoking [...] 07/14/2004 Date Reviewed: 09/17/2018 Reviewed by: Tiffani ([facility]) IDANIA Brothers - Fully Assessed Reason for Visit: Lower leg edema [Other] Cmt: Left leg Primary Visit Diagnosis:Bilateral leg ulcer, limited to breakdown of skin ([facility]) [L97.911, L97.921] Other Visit Diagnoses:ESRD on dialysis ([facility]) [N18.6, Z99.2] 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 Seeing Dr. Cardona - Cardiac defibrillator in place - Cardiomegaly - Carotid artery disease ([facility]) left - Chronic hypoxemic respiratory failure ([facility]) 07/01/2018 - Chronic kidney disease (CKD) stage G3b/A2, moderately decreased glomerular filtration rate (GFR) between 30-44 mL/min/1.73 square meter and albuminuria creatinine ratio between 30-299 mg/g ([facility]) Dr. Martin - COPD (chronic obstructive pulmonary disease) ([facility]) Dr. Cruz - Depression - Diabetes ([facility]) - Diabetic neuropathy ([facility]) - Edema - ESRD (end stage renal disease) on dialysis ([facility]) [facility], Dr. Martin - GERD (gastroesophageal reflux disease) - Gout with hyperuricemia - HH (hiatus hernia) - HOCM (hypertrophic obstructive cardiomyopathy) ([facility]) S/P Septal Myectomy in 2003. Now with LVEF 50% and mod/severe pulm HTN. - HTN (hypertension) - Hyperlipidemia - Morbid obesity with BMI of 40.0-44.9, adult ([facility]) - Presence of combination internal cardiac defibrillator (ICD) and pacemaker - Sleep apnea 2011 not on CPAP, unable to tolerate mask 02/2017 - SVT (supraventricular tachycardia) ([facility]) NSVT and questionable VT in 2003 post [...] age 89, HTN - Heart Failure Mother PA - Cancer Father age 71, lung cancer - Heart Attack Sister - COPD Brother - Heart Paternal Grandmother - Heart Paternal Grandfather - Heart Sister - Diabetes Sister - Heart Sister - Breast Cancer Sister - Diabetes Sister - Hypertension Brother - Diabetes Brother .[facility] Social History Substance Use Topics - Smoking [...] Kamara in 2 wks--earlier as needed JONATHAN aPyan MD, III MD PROGRESS Observed: 09/06/2018 Status: COMPLETED Source: [place] 5:16 PM [facility] REPOSITORY O ID: [id number] Author: Remi (Allyson) Brent Service: (none) Author [...] take 28 units Lantus. Verbalized understanding by teachrosa isela. Remi Kennedy RN September 06, 2018 5:18 PM PROGRESS Observed: 09/06/2018 Status: COMPLETED Source: [place] 4:26 PM [facility] REPOSITORY HNO ID: [id number] Author: Jameson Adasm) Koffi Service: (none) Author Type: Physician Type: Progress Notes Filed: 09/06/2018 4:27 PM Note Text: Noted low sugar symptoms with readings in the 90's to 80s. Decrease lantus to 18 units prior to dialysis and to 28 units at bedtime due to readings in the 60s with supper. PROGRESS Observed: 09/06/2018 Status: COMPLETED Source: [place] 3:48 PM [facility] REPOSITORY HNO ID: [id number] Author: Remi Briseno) Brent Service: (none) Author [...] [phone] 3 units, [phone] 4 units, [phone] [employer] Superintendent plan for next outreach: Will follow up 2 weeks Signature Remi Kennedy RN September 06, 2018 MADIE Observed: 09/06/2018 Status: COMPLETED Source: [place] 12:00 AM [facility] REPOSITORY Patient Outreach (FAMPWS) BACALUZ NAVARRO ([id number]) 1940 F Date Time Provider Department 09/06/18 [...] [phone] 3 units, [phone] 4 units, 390-449 Hotshot Superintendent plan for next outreach: Will follow up [...] by name and date . TC to dgtOctavia, informed the night before dialysis (Sun, Tues [...] MA - Fully Assessed Reason for Visit: [employer] Chronic Care [6019] Order(s):insulin glargine (LANTUS SOLOSTAR U-100 INSULIN) 100 [...] 09/06/18 OBSOLETE Observed: 09/02/2018 Status: COMPLETED Source: [place] 8:00 AM [facility] REPOSITORY Procedure (AKEPD) LUZ BACA ([id number]) 1940 F Date Time Provider Department 09/02/18 8:00 AM [facility] During your visit today, we recorded the following information about you: Referring Provider: ENE HUBBARD [[id number]] Allergies As of Date: 09/02/2018 Noted Allergy [...] Up [1924] Visit Diagnosis:Atrial fibrillation, unspecified type ([facility]) [I48.91] Prescriptions as of 09/02/2018 Sig: CARVEDILOL [...] 01/23/2018 Priority: I More... SVT (supraventricular tachycardia) ([facility]) [I47.1] 01/21/2018 More... Carotid artery disease ([facility]) [...] 09/02/18 PROGRESS Observed: 08/31/2018 Status: COMPLETED Source: [place] 5:22 PM [facility] REPOSITORY HNO ID: [id number] Author: Remi Briseno) Brent Service: (none) Author [...] PM PROGRESS Observed: 08/30/2018 Status: COMPLETED Source: [place] 5:23 PM [facility] REPOSITORY HNO ID: [id number] Author: Jameson Adams) Koffi Service: (none) Author Type: Physician Type: Progress Notes Filed: 08/30/2018 5:23 PM Note Text: Have her decrease insulin as previously recommended and on days before dialysis try 20 units of lantus in the pm. PROGRESS Observed: 08/30/2018 Status: COMPLETED Source: [place] 4:10 PM [facility] REPOSITORY HNO ID: [id number] Author: Remi Briseno) Brent Service: (none) Author [...] or called with hypoglycemia. BP ranging 112-155/70's-112 Hotshot Superintendent plan for next outreach: Will follow up one week Signature Remi Kennedy RN August 30, 2018 LUDA Observed: 08/30/2018 Status: COMPLETED Source: [place] 12:00 AM [facility] REPOSITORY Patient Outreach (FAMPWS) LUZ BACA ([id number]) 1940 F Date Time Provider Department 08/30/18 [...] or called with hypoglycemia. BP ranging 112-155/70's-112 Hotshot Superintendent plan for next outreach: Will follow up [...] MA - Fully Assessed Reason for Visit: [employer] Chronic Care [3612] Prescriptions as of 08/30/2018 [...] 08/31/18 PROGRESS Observed: 08/26/2018 Status: COMPLETED Source: [place] 10:16 PM [facility] REPOSITORY HNO ID: [id number] Author: Jose C Rajeshсергей Service: (none) Author Type: Physician Type: Progress Notes Filed: 08/26/2018 10:19 PM Note Text: Follow up podiatric office visit for: Chief Complaint: This 77 year old who presents for follow up blisters/ulceration of left hallux. She declines any open sores today. She is awaiting shoes from [employer]. She continues with lotion to her feet on most days. PAIN EVALUATION 08/25/2018 Pain Score: 7 Pain Location: Foot-Left Description: Throbbing Duration Amount of Time: 2 Duration Units: Months Frequency: Continuous Intervention: Medication Hemoglobin A1C Date Value Ref Range Status 08/04/2018 6.3 (H) 4.3 - 5.6 % Final PCP: Jameson Kamara MD PAST MEDICAL HISTORY Diagnosis Date - Arthritis - Atrial fibrillation ([facility]) - CAD (coronary artery disease) stents x9, defibrillator, CABG. Seeing Dr. Cardona - Cardiac defibrillator in place - Cardiomegaly - Carotid artery disease ([facility]) left - Chronic hypoxemic respiratory failure ([facility]) 07/01/2018 - Chronic kidney disease (CKD) stage G3b/A2, moderately decreased glomerular filtration rate (GFR) between 30-44 mL/min/1.73 square meter and albuminuria creatinine ratio between 30-299 mg/g ([facility]) Dr. Martin - COPD (chronic obstructive pulmonary disease) ([facility]) Dr. Cruz - Depression - Diabetes ([facility]) - Diabetic neuropathy ([facility]) - Edema - ESRD (end stage renal disease) on dialysis ([facility]) [facility], Dr. Martin - GERD (gastroesophageal reflux disease) - Gout with hyperuricemia - HH (hiatus hernia) - HOCM (hypertrophic obstructive cardiomyopathy) ([facility]) S/P Septal Myectomy in 2003. Now with LVEF 50% and mod/severe pulm HTN. - HTN (hypertension) - Hyperlipidemia - Morbid obesity with BMI of 40.0-44.9, adult ([facility]) - Presence of combination internal cardiac defibrillator (ICD) and pacemaker - Sleep apnea 2011 not on CPAP, unable to tolerate mask 02/2017 - SVT (supraventricular tachycardia) ([facility]) NSVT and questionable VT in 2003 post [...] fit her well. Awaiting diabetic shoes from [employer]. Patient will continue to monitor her feet daily, use lotion and avoid barefoot walking. On exam, there are no sores other than dryness noted above. If sores were to develop, she is to contact the office. F/u in 1 month 12 LEAD ELECTROCARDIOGRAM Observed: 08/26/2018 Status: F Source: [place] 8:36 AM [facility] REPOSITORY [facility] Cardiovascular Services [address] [place] [address] 12 Lead EKG 08/18/18 0409 MR#: [id number] Acct: [id number] Name: LUZ BACA Rep #: [id number] : 1940 77 From: Parker Cosby MD Attending Dr: Dina Claudio MD Status: DIS JUAN DANIEL Ordering Dr: Dina Claudio MD Date: 08/18/18 Location: [facility] Sex: F C Admitted: 08/17/18 [...] pacemaker Confirmed by PARKER COSBY MD ([id number]), publication editor JASON ALDANA ([id number]) on 08/26/2018 8:35:56 AM Referred By: Dina Claudio Confirmed By:PARKER COSBY MD 08/26/18 0836 Date Parker Cosby MD CC: Mook Kamara MD; Dina Claudio MD Signed PROGRESS Observed: 08/25/2018 Status: COMPLETED Source: [place] 10:30 AM [facility] REPOSITORY HNO ID: [id number] Author: Kathie Leavitt MA Service: (none) Author [...] MA CNOV Observed: 08/25/2018 Status: COMPLETED Source: [place] 9:55 AM [facility] REPOSITORY Office Visit (PODIWS) LUZ BACA ([id number]) 1940 F Date Time Provider Department 08/25/18 [...] sores today. She is awaiting shoes from [employer]. She continues with lotion to her feet on most days. PAIN EVALUATION 08/25/2018 Pain Score: 7 Pain Location: Foot-Left Description: Throbbing Duration Amount of Time: 2 Duration Units: Months Frequency: Continuous Intervention: Medication Hemoglobin A1C Date Value Ref Range Status 08/04/2018 6.3 (H) 4.3 - 5.6 % Final PCP: Jameson Kamara MD PAST MEDICAL HISTORY Diagnosis Date - Arthritis - Atrial fibrillation ([facility]) - CAD (coronary artery disease) stents x9, defibrillator, CABG. Seeing Dr. Cardona - Cardiac defibrillator in place - Cardiomegaly - Carotid artery disease ([facility]) left - Chronic hypoxemic respiratory failure ([facility]) 07/01/2018 - Chronic kidney disease (CKD) stage G3b/A2, moderately decreased glomerular filtration rate (GFR) between 30-44 mL/min/1.73 square meter and albuminuria creatinine ratio between 30-299 mg/g ([facility]) Dr. Martin - COPD (chronic obstructive pulmonary disease) ([facility]) Dr. Cruz - Depression - Diabetes ([facility]) - Diabetic neuropathy ([facility]) - Edema - ESRD (end stage renal disease) on dialysis ([facility]) [facility], Dr. Martin - GERD (gastroesophageal reflux disease) - Gout with hyperuricemia - HH (hiatus hernia) - HOCM (hypertrophic obstructive cardiomyopathy) ([facility]) S/P Septal Myectomy in 2003. Now with LVEF 50% and mod/severe pulm HTN. - HTN (hypertension) - Hyperlipidemia - Morbid obesity with BMI of 40.0-44.9, adult ([facility]) - Presence of combination internal cardiac defibrillator (ICD) and pacemaker - Sleep apnea 2011 not on CPAP, unable to tolerate mask 02/2017 - SVT (supraventricular tachycardia) ([facility]) NSVT and questionable VT in 2003 post [...] fit her well. Awaiting diabetic shoes from [employer]. Patient will continue to monitor her feet daily, use lotion and avoid barefoot walking. On exam, there are no sores other than dryness noted above. If sores were to develop, she is to contact the office. F/u in 1 month Referring Provider: JOSE C RODRIGUEZ [[id number]] Allergies As of Date: 08/25/2018 Noted Allergy [...] 01/23/2018 Priority: I More... SVT (supraventricular tachycardia) ([facility]) [I47.1] 01/21/2018 More... Carotid artery disease ([facility]) [I77.9] 01/22/2018 CAD (coronary artery disease) [I25.10] [...] 08/26/18 PROGRESS Observed: 08/23/2018 Status: COMPLETED Source: [place] 4:58 PM [facility] [place] REPOSITORY O ID: [id number] Author: Seferino Alberts (Pa) Service: (none) Author Type: Physician Tester Electronic Scale Type: Progress Notes Filed: 08/23/2018 5:12 PM [...] December 31, 2017. This was performed in [place]. The patient was found to have a [...] performed she recalls 5 years previously and [place]. She is uncertain what the findings were [...] a surgical procedure for dialysis access in [place]. The patient required intubation and noted dysphagia for the first 2 weeks following that procedure. This dysphagia has since resolved. The patient is impaired with her activities of daily living and uses a scooter. She has a history of heart failure and has a history of undergoing a right sided congestive heart failure with fluid shafts. Her marketing account executive is Dr. Cardona but she has had her most recent cardiac care at [facility] by Dr. Hunter ? The patient [...] developed and their performance characteristics determined by [facility]. They may not have been cleared [...] Diagnosis Date - Arthritis - Atrial fibrillation ([facility]) - CAD (coronary artery disease) stents x9, defibrillator, CABG. Seeing Dr. Cardona - Cardiac defibrillator in place - Cardiomegaly - Carotid artery disease ([facility]) left - Chronic hypoxemic respiratory failure ([facility]) 07/01/2018 - Chronic kidney disease (CKD) stage G3b/A2, moderately decreased glomerular filtration rate (GFR) between 30-44 mL/min/1.73 square meter and albuminuria creatinine ratio between 30-299 mg/g ([facility]) Dr. Martin - COPD (chronic obstructive pulmonary disease) ([facility]) Dr. Cruz - Depression - Diabetes ([facility]) - Diabetic neuropathy ([facility]) - Edema - ESRD (end stage renal disease) on dialysis ([facility]) [facility], Dr. Martin - GERD (gastroesophageal reflux disease) - Gout with hyperuricemia - HH (hiatus hernia) - HOCM (hypertrophic obstructive cardiomyopathy) ([facility]) S/P Septal Myectomy in 2003. Now with LVEF 50% and mod/severe pulm HTN. - HTN (hypertension) - Hyperlipidemia - Morbid obesity with BMI of 40.0-44.9, adult ([facility]) - Presence of combination internal cardiac defibrillator [...] age 89, HTN - Heart Failure Mother PA - Cancer Father age 71, lung cancer [...] MEGAN Rudolph Observed: 08/23/2018 Status: COMPLETED Source: [place] 9:00 AM [facility] REPOSITORY Office Visit (GENSWS) KEVENLUZ Franco ([id number]) 1940 F Date Time Provider Department 08/23/18 9:00 AM SEFREINO ALBERTS (PA) During your visit today, we [...] December 31, 2017. This was performed in [place]. The patient was found to have a [...] performed she recalls 5 years previously and [place]. She is uncertain what the findings were [...] a surgical procedure for dialysis access in [place]. The patient required intubation and noted dysphagia for the first 2 weeks following that procedure. This dysphagia has since resolved. The patient is impaired with her activities of daily living and uses a scooter. She has a history of heart failure and has a history of undergoing a right sided congestive heart failure with fluid shafts. Her marketing account executive is Dr. Cardona but she has had her most recent cardiac care at [facility] by Dr. Hunter ? The patient [...] developed and their performance characteristics determined by [facility]. They may not have been cleared [...] place - Cardiomegaly - Carotid artery disease ([facility]) left - Chronic hypoxemic respiratory failure ([facility]) 07/01/2018 - Chronic kidney disease (CKD) stage G3b/A2, moderately decreased glomerular filtration rate (GFR) between 30-44 mL/min/1.73 square meter and albuminuria creatinine ratio between 30-299 mg/g ([facility]) Dr. Martin - COPD (chronic obstructive pulmonary disease) ([facility]) Dr. Cruz - Depression - Diabetes ([facility]) - Diabetic neuropathy ([facility]) - Edema - ESRD (end stage renal disease) on dialysis ([facility]) [facility], Dr. Martin - GERD (gastroesophageal reflux disease) - Gout with hyperuricemia - HH (hiatus hernia) - HOCM (hypertrophic obstructive cardiomyopathy) ([facility]) S/P Septal Myectomy in 2003. Now with LVEF 50% and mod/severe pulm HTN. - HTN (hypertension) - Hyperlipidemia - Morbid obesity with BMI of 40.0-44.9, adult ([facility]) - Presence of combination internal cardiac defibrillator (ICD) and pacemaker - Sleep apnea 2011 not on CPAP, unable to tolerate mask 02/2017 - SVT (supraventricular tachycardia) ([facility]) NSVT and questionable VT in 2003 post [...] age 89, HTN - Heart Failure Mother PA - Cancer Father age 71, lung cancer [...] Seferino Alberts PA-C Referring Provider: JAMESON KAMARA) [[id number]] Allergies As of Date: 08/23/2018 Noted Allergy [...] 08/23/18 PROGRESS Observed: 08/22/2018 Status: COMPLETED Source: [place] 6:28 PM [facility] REPOSITORY HNO ID: [id number] Author: Dina Claudio Service: (none) Author Type: Physician Type: Progress Notes Filed: 08/22/2018 6:35 PM Note Text: OPERATIVE NOTATION FOR [facility] SURGICAL PROCEDURE. August 18, 2018 Luz Baca 1940 [id number] female PROCEDURE: EGD WITH BIOPSY - [id number] and COLONOSCOPY - [id number] SURGEON: Ellyn Claudio M.D. FACS CLIMATOLOGY TEACHER: None DEPT: WQ PROVIDER: [id number] Claudio MD POS: [id number] DIAGNOSIS: (R19.5) Occult GI bleeding (primary encounter diagnosis) ASA CLASS: 3 - Severe FINDINGS: gastritis, diverticulosis COMPLICATIONS: None PMHx - PAST MEDICAL HISTORY Diagnosis Date - Arthritis - Atrial fibrillation ([facility]) - CAD (coronary artery disease) stents x9, defibrillator, CABG. Seeing Dr. Cardona - Cardiac defibrillator in place - Cardiomegaly - Carotid artery disease ([facility]) left - Chronic hypoxemic respiratory failure ([facility]) 07/01/2018 - Chronic kidney disease (CKD) stage G3b/A2, moderately decreased glomerular filtration rate (GFR) between 30-44 mL/min/1.73 square meter and albuminuria creatinine ratio between 30-299 mg/g ([facility]) Dr. Martin - COPD (chronic obstructive pulmonary disease) ([facility]) Dr. Cruz - Depression - Diabetes ([facility]) - Diabetic neuropathy ([facility]) - Edema - ESRD (end stage renal disease) on dialysis ([facility]) [facility], Dr. Martin - GERD (gastroesophageal reflux disease) - Gout with hyperuricemia - HH (hiatus hernia) - HOCM (hypertrophic obstructive cardiomyopathy) ([facility]) S/P Septal Myectomy in 2003. Now with LVEF 50% and mod/severe pulm HTN. - HTN (hypertension) - Hyperlipidemia - Morbid obesity with BMI of 40.0-44.9, adult ([facility]) - Presence of combination internal cardiac defibrillator (ICD) and pacemaker - Sleep apnea 2011 not on CPAP, unable to tolerate mask 02/2017 - SVT (supraventricular tachycardia) ([facility]) NSVT and questionable VT in 2003 post op COMORBIDITIES - Obesity, Chronic Pulmonary, COPD, Coagulopathy, Coumadin Tx, Anemia, CHF, CAD, HTN, Cor Pulmonale, Hx Cardiac Surgery and PA Post Op Occurrences - None Wound Classification - Contaminated Operative note dictated in the [facility] dictation system. Dina Claudio MD DISCHARGE INSTRUCTION Observed: 08/18/2018 Status: F Source: [place] 7:55 AM [facility] REPOSITORY [facility] Medical Records Department [address] [place] [address] Instructions for Home/Discharge Instructions 08/18/18 0754 MR#: [id number] Acct: [id number] Name: LUZ BACA Rep #: [id number] : 1940 77 From: Dina Claudio MD [...] Status: F Source: [facility] ENDOSCOPY 7:45 AM [facility] REPOSITORY [facility] Medical Records Department [address] [place] [address] Operative Report - Endoscopy MR#: [id number] Acct: [id number] Name: LUZ BACA Rep #: [id number] : 1940 77 From: Dina Claudio MD PCP: Mook Kamara MD Status: ADM JUAN DANIEL Patient Name: Luz Baca Procedure Date: 08/18/2018 7:18 AM Date of : 1940 Age: 77 Procedure: Colonoscopy Indications: Heme positive stool Providers: Dina Claudio MD Referring MD: Dina Caludio MD Medicines: Monitored Anesthesia Care Patient Profile: [...] by the physician, the nurse and the organic gardening teacher in the procedure room. Mental Status Examination: [...] screening purposes. Procedure Code(s): --- Professional --- 12666, Colonoscopy, flexible; diagnostic, including collection of specimen(s) by brushing or washing, when performed (separate procedure) CPT copyright 2017 [employer]. All rights reserved. The codes documented in this report are preliminary and upon case checker review may be revised to meet current compliance requirements. Dina Claudio MD 08/18/2018 7:44:56 AM This report has been signed electronically. Number of Addenda: 0 Note Initiated On: 08/18/2018 7:18 AM 08/18/18 0745 Date Dina Claudio MD Cosigner Signature: Date (if indicated) CC: Mook Kamara MD; Dina Claudio MD Date Dictated: 08/18/18717 Date Transcribed: Top Lift Cutter: BLACK Signed OPERATIVE REPORT - Observed: 08/18/2018 Status: F Source: [place] [facility]COPY 7:43 AM [facility] REPOSITORY [facility] Medical Records Department [address] [place] [address] Operative Report - Endoscopy MR#: [id number] Acct: [id number] Name: LUZ BACA Rep #: [id number] : 1940 77 From: Dina Claudio MD [...] by the physician, the nurse and the organic gardening teacher in the procedure room. Mental Status Examination: [...] present medications. Procedure Code(s): --- Professional --- 38410, Esophagogastroduodenoscopy, flexible, transoral; with biopsy, single or multiple CPT copyright 2017 [employer]. All rights reserved. The codes documented in this report are preliminary and upon case checker review may be revised to meet current compliance requirements. Dina Claudio MD 08/18/2018 7:42:51 AM This report has been signed electronically. Number of Addenda: 0 Note Initiated On: 08/18/2018 6:56 AM 08/18/18 0742 Date Dina Claudio MD Cosigner Signature: Date (if indicated) CC: Mook Kamara MD; Dina Claudio MD Date Dictated: 08/18/18 0656 Date Transcribed: Top Lift Cutter: BLACK Signed HISTORY AND PHYSICAL Observed: 08/18/2018 Status: F Source: [place] EXAM 7:00 AM [facility] REPOSITORY [facility] Medical Records Department [address] [place] [address] History and Physical 08/18/18 0654 MR#: [id number] Acct: [id number] Name: LUZ BACA Rep #: [id number] : 1940 77 From: Dina Claudio MD PCP: Mook Kamara MD Status: ADM JUAN DANIEL Y [address]: [address] History and Physical Date of Admission: [...] December 31, 2017. This was performed in [place]. The patient was found to have a [...] performed she recalls 5 years previously and [place]. She is uncertain what the findings were [...] a surgical procedure for dialysis access in [place]. The patient required intubation and noted dysphagia for the first 2 weeks following that procedure. This dysphagia has since resolved. The patient is impaired with her activities of daily living and uses a scooter. She has a history of heart failure and has a history of undergoing a right sided congestive heart failure with fluid shafts. Her marketing account executive is Dr. Cardona but she has had her most recent cardiac care at [facility] by Dr. Hunter The patient is being seen by me today at the request of Dr. Jameson Kamara MD for my opinion and advice regarding need for endoscopy given chronic and severe medical comorbidities. c PAST MEDICAL HISTORY c PAST MEDICAL HISTORY Diagnosis Date Arthritis Atrial fibrillation ([facility]) CAD (co ronary artery disease) stents x9, defibrillator, CABG. Seeing Dr. Cardona Cardiac defibr illator in place Cardiomegaly Carotid artery disease ([facility]) left Chronic hypox emic respiratory failure ([facility]) 07/01/2018 Chronic kidney disease (CKD) stage G3b/A2, moderate ly decreased glomerular filtration rate (GFR) between 30-44 mL/min/1.73 square meter and albumi lise creatinine ratio between 30-299 mg/g ([facility]) Dr. Martin COPD (chronic obstructive pulmonary disease) ([facility])Dr. Cruz Depression Diabetes ([facility]) Diabetic neuropathy ([facility]) Edema ESRD (end stage renal disease) on dialysis ([facility]) MWF, Dr. Martin GERD (gastroesophageal reflux disease) Gout with hyperuricemia HH (hiatus hernia) HOCM (hypertrophic obstructive cardiomyopathy) ([facility]) S/P Septal Myectomy in 2003. N ow with LVEF 50% and mod/severe pulm HTN.HTN (hypertension) Hyperlipidemia Morbid obe sity with BMI of 40.0-44.9, adult ([facility]) Presence of combination internal cardiac defibrill ator (ICD) and pacemaker Sleep apnea 2011not on CPAP, unable to tolerate mask 02/2017 SV T (supraventricular tachycardia) ([facility]) NSVT and questionable VT in 2003 post [...] affected area three times daily. guaiFENesin-dextromethorphan (ABAD MAGGI DM) 100-10 mg/5 mL syrup Take 5-10 [...] age 9 3, HTN Heart Failure Mother PA Cancer Father age 71, lung c ancerHeart Attack Sister COPD Brother Heart Paternal Grandmother Heart Paternal Grandfather Heart Sister Diabetes Sister Heart Sister Breast Cancer Sister Diabetes Sister Hypertension Brother Diabetes Brother REVIEW OF SYMPTOMS: The review of systems data was entered by the nurse and reviewed by wy Nursing Notes: Madelyn John LPN 08/11/2018 11:04 [...] unspecified vessel or lesion type, unspecified whether prairie band or transplanted heart (K21.9) Gastroesophageal reflux disease, [...] Signed IMMUNOHISTOCHEMISTRY Observed: 08/18/2018 Status: F Source: [place] 7:00 [facility] REPOSITORY Patient: LUZ BACA : 1940 (77/F) Acct Num: [id number] Phys: González COLLIER,Dina Unit Num: [id number] Loc: MS2 [id number] Specimen: [id number] Received: 08/18/18 - 3 Spec Type: IMMUNO TISSUES 1 TISSUES: Stomach, NOS SPECIMEN INFORMATION: Tissue Source: Antrum biopsy Clinical Info: Blood in stool Specimen Number: [id number] CPT code: 80926 METHODOLOGY: Deparaffinized sections of prefer/formalin-fixed tissue or PAP/DQ stained slides are incubated with monoclonal/polyclonal antibodies/oligonucleotide probes. Localization is made via biotin free immunoperoxidase method. Appropriate controls are performed and reacted as expected. Results on target cell population are indicated in the following table: RESULTS: ANTIBODY / CLONE RESULT H Pylori (polyclonal) negative These tests were developed and their performance characteristics determined by [facility]. They may not have been cleared or approved by the U.S. Food and Drug Administration. The FDA has determined that such clearance or approval is not necessary. INTERPRETATION: Antrum, biopsy: Negative for Helicobacter pylori organisms. AM:black 08/22/18 PHYSICIAN AND INSTITUTION [address] [address] Signed Mu Quinteros 08/22/18 <signature on file> Performed By: #### PIMM #### [facility] [address] [place], [address] BEDSIDE GLUCOSE Collected: 08/18/2018 Status: F Source: [place] 6:09 AM [facility] REPOSITORY TYPE CODE TESTS RESULT OUT OF RANGE REFERENCE UNITS LAB L501.080 70-110 mg/dL Normal BEDSIDE GLU 81 Result Comment: MANAGEMENT OF PATIENT CARE PER NURSING PROTOCOL Performed By: #### L501.080 #### [facility] Point of Care [address] [place] [address] CNOP Observed: 08/18/2018 Status: COMPLETED Source: [place] 12:00 AM [facility] REPOSITORY Operative Note (Enc) (GENSWS) Progress Notes: Dina Claudio MD 08/22/2018 6:35 PM Signed OPERATIVE NOTATION FOR [facility] SURGICAL PROCEDURE. August 18, 2018 Luz Baca 1940 [id number] female PROCEDURE: EGD WITH BIOPSY - [id number] and COLONOSCOPY - [id number] SURGEON: Ellyn Claudio M.D. FACS CLIMATOLOGY TEACHER: None DEPT: WQ PROVIDER: [id number] Claudio MD POS: [id number] DIAGNOSIS: (R19.5) Occult GI bleeding (primary encounter [...] and albuminuria creatinine ratio between 30-299 mg/g ([facility]) Dr. Martin - COPD (chronic obstructive pulmonary disease) ([facility]) Dr. Cruz - Depression - Diabetes ([facility]) - Diabetic neuropathy ([facility]) - Edema - ESRD (end stage renal disease) on dialysis ([facility]) MWF, Dr. Martin - GERD (gastroesophageal reflux disease) - Gout with hyperuricemia - HH (hiatus hernia) - HOCM (hypertrophic obstructive cardiomyopathy) ([facility]) S/P Septal Myectomy in 2003. Now with LVEF 50% and mod/severe pulm HTN. - HTN (hypertension) - Hyperlipidemia - Morbid obesity with BMI of 40.0-44.9, adult ([facility]) - Presence of combination internal cardiac defibrillator (ICD) and pacemaker - Sleep apnea 2011 not on CPAP, unable to tolerate mask 02/2017 - SVT (supraventricular tachycardia) ([facility]) NSVT and questionable VT in 2003 post op COMORBIDITIES - Obesity, Chronic Pulmonary, COPD, Coagulopathy, Coumadin Tx, Anemia, CHF, CAD, HTN, Cor Pulmonale, Hx Cardiac Surgery and PA Post Op Occurrences - None Wound Classification - Contaminated Operative note dictated in the [facility] dictation system. Dina Claudio MD Encounter Status:Closed by DINA CLAUDIO MD on 08/22/18 GASTRIC BIOPSY Observed: 08/18/2018 Status: F Source: [place] 12:00 AM [facility] REPOSITORY Patient: LUZ BACA : 1940 (77/F) Acct Num: [id number] Phys: Dina Claudio MD Unit Num: [id number] Loc: MS2 [id number] Specimen: [id number] Received: 08/18/18 - 1052 Spec Type: Gastric Bx TISSUES 1 TISSUES: Gastric mucous membrane COMMENT The results of immunohistochemistry for Helicobacter pylori will be reported separately ([id number]). GROSS DESCRIPTION Received in fixative is one container labeled with the patient's name and designated antrum biopsy. The specimen consists of one irregular fragment of light benavides soft tissue that measures 0.5 x 0.2 x 0.2 cm. The specimen is totally submitted in one cassette. / AM:rg 08/18/18 TC:3 CPT: 57344 HEADER OPERATION: Colonoscopy, [place] [place] PRE[place]OP DIAGNOSIS: Blood in stool TISSUE SUBMITTED: Antrum biopsy for H. pylori and path MICROSCOPIC DESCRIPTION Slides are reviewed. MICROSCOPIC DIAGNOSIS Gastric antrum, biopsy: Mild chronic gastritis. AM:black 08/19/18 Signed Mu Neli 08/19/18 <signature on file> Performed By: #### PGASB #### [facility] [address] [place], [place], [address] BEDSIDE GLUCOSE Collected: 08/17/2018 Status: F Source: [place] 10:34 PM [facility] REPOSITORY TYPE CODE TESTS RESULT OUT OF RANGE REFERENCE UNITS LAB L501.080 70-110 mg/dL Normal BEDSIDE GLU 101 Result Comment: MANAGEMENT OF PATIENT CARE PER NURSING PROTOCOL Performed By: #### L501.080 #### [facility] Point of Care [address] [place] [address] CBC W/DIFF, AUTOMATED Collected: 08/17/2018 Status: F Source: [place] 5:45 PM [facility] REPOSITORY TYPE CODE TESTS RESULT OUT OF [...] By: #### L100.0100, L500.4050, L501.2300, L501.5200 #### [facility] [address] [place], [place], [address] COMPREHENSIVE METABOLIC Collected: 08/17/2018 Status: F Source: [facility] 5:45 PM [facility] REPOSITORY TYPE CODE TESTS RESULT OUT OF [...] By: #### L100.0100, L500.4050, L501.2300, L501.5200 #### [facility] [address] [place], [place], [address] PHOSPHORUS Collected: 08/17/2018 Status: F Source: [place] 5:45 PM [facility] REPOSITORY TYPE CODE TESTS RESULT OUT OF RANGE REFERENCE UNITS LAB L501.2300 2.5-4.9 mg/dL Normal PHOS 3.9 Performed By: #### L100.0100, L500.4050, L501.2300, L501.5200 #### [facility] [address] [place], [place], [address] MAGNESIUM Collected: 08/17/2018 Status: F Source: [place] 5:45 PM [facility] REPOSITORY TYPE CODE TESTS RESULT OUT OF RANGE REFERENCE UNITS LAB L501.5200 1.6-2.6 mg/dL Normal MG 2.1 Performed By: #### L100.0100, L500.4050, L501.2300, L501.5200 #### [facility] [address] [place], [place], [address] BEDSIDE GLUCOSE Collected: 08/17/2018 Status: F Source: [place] 4:48 PM [facility] REPOSITORY TYPE CODE TESTS RESULT OUT OF RANGE REFERENCE UNITS LAB L501.080 70-110 mg/dL Normal BEDSIDE GLU 85 Result Comment: MANAGEMENT OF PATIENT CARE PER NURSING PROTOCOL Performed By: #### L501.080 #### [facility] Point of Care [address] [place] [address] PROGRESS Observed: 08/15/2018 Status: COMPLETED Source: [place] 5:39 PM [facility] REPOSITORY HNO ID: [id number] Author: Jameson Adams) Koffi Service: (none) Author Type: Physician Type: Progress Notes Filed: 08/15/2018 5:40 PM Note Text: Reviewed. Glucose readings controlled otherwise. Will continue current regimen and have PCC follow up in 2-4 weeks. Keep appointments as scheduled. PROGRESS Observed: 08/15/2018 Status: COMPLETED Source: [place] 5:12 PM [facility] REPOSITORY HNO ID: [id number] Author: Sean Han Ma Service: (none) Author Type: (none) Type: Progress Notes Filed: 08/16/2018 8:43 AM Note Text: Patient states she was not feeling well that day and did not have a regular diet. PROGRESS Observed: 08/15/2018 Status: COMPLETED Source: [place] 5:08 PM [facility] REPOSITORY HNO ID: [id number] Author: Jameson Adams) Koffi Service: (none) Author Type: Physician Type: Progress Notes Filed: 08/15/2018 5:09 PM Note Text: Single episode of low glucose on 07/22. Was she ill during this time or not eating regular diet? PROGRESS Observed: 08/15/2018 Status: COMPLETED Source: [place] 8:33 AM [facility] REPOSITORY HNO ID: [id number] Author: Remi OsheaRn) Brent Service: (none) Author Type: Registered Nurse Type: Progress Notes Filed: 08/15/2018 3:49 PM Note Text: PRIMARY CARE COORDINATION FOLLOW-UP NOTE Provider Action/ANI Faxed BS from [facility] Patient identified by name and date of . YES Spoke to [facility] Summary: Luz Baca is a 77 year old female who reports glucose readings as noted. DATE 08/09/21 9/18 Fasting [phone] 197 [...] 4 units, [phone] 5 units TC to [facility], asked to fax recent BS to PCC. 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 YES Spoke to [facility] Summary: Luz G Keven is a 77 [...] 4 units, [phone] 5 units TC to [facility], asked to fax recent BS to PCC. Hotshot Superintendent plan for next outreach: Will follow up [...] Claudio - Fully Assessed Reason for Visit: [employer] Chronic Care [3612] Prescriptions as of 08/15/2018 [...] 01/23/2018 Priority: I More... SVT (supraventricular tachycardia) ([facility]) [I47.1] 01/21/2018 More... Carotid artery disease ([facility]CC) [...] 08/16/18 PROGRESS Observed: 08/12/2018 Status: COMPLETED Source: [place] 10:14 AM [facility] REPOSITORY O ID: [id number] Author: Jameson Adams) Koffi Service: (none) Author Type: Physician Type: Progress Notes Filed: 08/12/2018 10:15 AM Note Text: 30 day refill sent as requested. F/u with specialists as recommended. Will await glucose readings. PROGRESS Observed: 08/12/2018 Status: COMPLETED Source: [place] 9:42 AM [facility] REPOSITORY HNO ID: [id number] Author: Remi Briseno) Brent Service: (none) Author [...] is applying bandaid Pt will return to [employer] for new diabetic shoes Patient identified by [...] daily. JF: No Please review and advise. Hotshot Superintendent plan for next outreach: Will follow up one month Signature Remi Kennedy RN August 12, 2018 PROGRESS Observed: 08/11/2018 Status: COMPLETED Source: [place] 5:11 PM [facility] REPOSITORY HNO ID: [id number] Author: Remi Briseno) Brent Service: (none) Author [...] and will call back tomorrow with BS [employer]shot Superintendent plan for next outreach: Will follow up 2 weeks Signature Remi Kennedy RN August 11, 2018 PROGRESS Observed: 08/11/2018 Status: COMPLETED Source: [place] 2:50 PM [facility] REPOSITORY HNO ID: [id number] Author: Dina Claudio Service: (none) Author Type: Physician Type: Progress Notes Filed: 08/11/2018 2:55 PM Note Text: HISTORY AND PHYSICAL Luz Salvador Keven 1940 REFERRING PHYSICIAN: Adriel Pringle (Elías), Ebonie* [...] December 31, 2017. This was performed in [place]. The patient was found to have a [...] performed she recalls 5 years previously and [place]. She is uncertain what the findings were [...] a surgical procedure for dialysis access in [place]. The patient required intubation and noted dysphagia for the first 2 weeks following that procedure. This dysphagia has since resolved. The patient is impaired with her activities of daily living and uses a scooter. She has a history of heart failure and has a history of undergoing a right sided congestive heart failure with fluid shafts. Her marketing account executive is Dr. Cardona but she has had her most recent cardiac care at [facility] by Dr. Hunter The patient is being seen by me today at the request of Dr. Jameson Kamara MD for my opinion and advice regarding need for endoscopy given chronic and severe medical comorbidities. PAST MEDICAL HISTORY Diagnosis Date - Arthritis - Atrial fibrillation ([facility]) - CAD (coronary artery disease) stents x9, defibrillator, CABG. Seeing Dr. Cardona - Cardiac defibrillator in place - Cardiomegaly - Carotid artery disease ([facility]) left - Chronic hypoxemic respiratory failure ([facility]) 07/01/2018 - Chronic kidney disease (CKD) stage G3b/A2, moderately decreased glomerular filtration rate (GFR) between 30-44 mL/min/1.73 square meter and albuminuria creatinine ratio between 30-299 mg/g ([facility]) Dr. Martin - COPD (chronic obstructive pulmonary disease) ([facility]) Dr. Cruz - Depression - Diabetes ([facility]) - Diabetic neuropathy ([facility]) - Edema - ESRD (end stage renal disease) on dialysis ([facility]) [facility], Dr. Martin - GERD (gastroesophageal reflux disease) - Gout with hyperuricemia - HH (hiatus hernia) - HOCM (hypertrophic obstructive cardiomyopathy) ([facility]) S/P Septal Myectomy in 2003. Now with LVEF 50% and mod/severe pulm HTN. - HTN (hypertension) - Hyperlipidemia - Morbid obesity with BMI of 40.0-44.9, adult ([facility]) - Presence of combination internal cardiac defibrillator (ICD) and pacemaker - Sleep apnea 2011 not on CPAP, unable to tolerate mask 02/2017 - SVT (supraventricular tachycardia) ([facility]) NSVT and questionable VT in 2003 post [...] age 89, HTN - Heart Failure Mother PA - Cancer Father age 71, lung cancer - Heart Attack Sister - COPD Brother - Heart Paternal Grandmother - Heart Paternal Grandfather - Heart Sister - Diabetes Sister - Heart Sister - Breast Cancer Sister - Diabetes Sister - Hypertension Brother - Diabetes Brother REVIEW OF SYMPTOMS: The review of systems data was entered by the nurse and reviewed by wy Nursing Notes: Madelyn John LPN 08/11/2018 11:04 [...] unspecified vessel or lesion type, unspecified whether prairie band or transplanted heart (K21.9) Gastroesophageal reflux disease, esophagitis presence not specified My findings have been communicated to Dr. Jameson Kamara MD via shared medical record. This note will be forwarded to Dr. Jameson Kamara MD. Return to Clinic: The patient is instructed to follow-up with me as needed. Dina Claudio MD CNOV Observed: 08/11/2018 Status: COMPLETED Source: [place] 10:10 AM [facility] REPOSITORY Office Visit (GENSWS) LUZ BACA ([id number]) 1940 F Date Time Provider Department 08/11/18 10:10 AM DINA CLAUDIO During your visit today, we recorded the following information about you: Blood pressure Weight 86/48 92.5 kg Madelyn John [employer] 08/11/2018 11:04 AM Signed REVIEW OF SYSTEMS: [...] Luz Baca 1940 REFERRING PHYSICIAN: Adriel Pringle (Pickling Tank Operator), Ebonie* CHIEF COMPLAINT: New Patient (positive occult [...] December 31, 2017. This was performed in [place]. The patient was found to have a [...] performed she recalls 5 years previously and [place]. She is uncertain what the findings were [...] a surgical procedure for dialysis access in [place]. The patient required intubation and noted dysphagia for the first 2 weeks following that procedure. This dysphagia has since resolved. The patient is impaired with her activities of daily living and uses a scooter. She has a history of heart failure and has a history of undergoing a right sided congestive heart failure with fluid shafts. Her marketing account executive is Dr. Cardona but she has had her most recent cardiac care at [facility] by Dr. Hunter The patient is being seen by me today at the request of Dr. Jameson Kamara MD for my opinion and advice regarding need for endoscopy given chronic and severe medical comorbidities. PAST MEDICAL HISTORY Diagnosis Date - Arthritis - Atrial fibrillation ([facility]) - CAD (coronary artery disease) stents x9, defibrillator, CABG. Seeing Dr. Cardona - Cardiac defibrillator in place - Cardiomegaly - Carotid artery disease ([facility]) left - Chronic hypoxemic respiratory failure ([facility]) 07/01/2018 - Chronic kidney disease (CKD) stage G3b/A2, moderately decreased glomerular filtration rate (GFR) between 30-44 mL/min/1.73 square meter and albuminuria creatinine ratio between 30-299 mg/g ([facility]) Dr. Martin - COPD (chronic obstructive pulmonary disease) ([facility]) Dr. Cruz - Depression - Diabetes ([facility]) - Diabetic neuropathy ([facility]) - Edema - ESRD (end stage renal disease) on dialysis ([facility]) [facility], Dr. Martin - GERD (gastroesophageal reflux disease) - Gout with hyperuricemia - HH (hiatus hernia) - HOCM (hypertrophic obstructive cardiomyopathy) ([facility]) S/P Septal Myectomy in 2003. Now with LVEF 50% and mod/severe pulm HTN. - HTN (hypertension) - Hyperlipidemia - Morbid obesity with BMI of 40.0-44.9, adult ([facility]) - Presence of combination internal cardiac defibrillator (ICD) and pacemaker - Sleep apnea 2011 not on CPAP, unable to tolerate mask 02/2017 - SVT (supraventricular tachycardia) ([facility]) NSVT and questionable VT in 2003 post [...] age 89, HTN - Heart Failure Mother PA - Cancer Father age 71, lung cancer - Heart Attack Sister - COPD Brother - Heart Paternal Grandmother - Heart Paternal Grandfather - Heart Sister - Diabetes Sister - Heart Sister - Breast Cancer Sister - Diabetes Sister - Hypertension Brother - Diabetes Brother REVIEW OF SYMPTOMS: The review of systems data was entered by the nurse and reviewed by wy Nursing Notes: Madelyn Alvaro RHODES 08/11/2018 11:04 [...] unspecified vessel or lesion type, unspecified whether prairie band or transplanted heart (K21.9) Gastroesophageal reflux disease, esophagitis presence not specified My findings have been communicated to Dr. Jameson Kamara MD via shared medical record. This note will be forwarded to Dr. Jameson Kamara MD. Return to Clinic: The patient is instructed to follow-up with me as needed. Dina Claudio MD Referring Provider: ADRIEL PRINGLE ([employer]) [[id number]] Allergies As of Date: 08/11/2018 Noted Allergy [...] unspecified vessel or lesion type, unspecified whether prairie band or transplanted heart [I25.10] Gastroesophageal reflux disease, [...] 01/23/2018 Priority: I More... SVT (supraventricular tachycardia) ([facility]) [I47.1] 01/21/2018 More... Carotid artery disease (HCC) [...] 08/11/18 CNPTOUTREACH Observed: 08/11/2018 Status: COMPLETED Source: [place] 12:00 AM [facility] REPOSITORY Patient Outreach (FAMPWS) LUZ BACA ([id number]) 1940 F Date Time Provider Department 08/11/18 [facility] (RN) [facility] During your visit today, we recorded the [...] and will call back tomorrow with BS Hotshot Superintendent plan for next outreach: Will follow up [...] is applying bandaid Pt will return to [employer] for new diabetic shoes Patient identified by [...] daily. JF: No Please review and advise. Hotshot Superintendent plan for next outreach: Will follow up [...] Claudio - Fully Assessed Reason for Visit: [employer] Chronic Care [3612] Primary Visit Diagnosis:Hypertension [I10] Other Visit Diagnoses:Chronic combined systolic and diastolic CHF (congestive heart failure) (HCC) [I50.42] Coronary artery disease, angina presence unspecified, unspecified vessel or lesion type, unspecified whether prairie band or transplanted heart [I25.10] Atrial fibrillation, unspecified [...] 01/23/2018 Priority: I More... SVT (supraventricular tachycardia) ([facility]) [I47.1] 01/21/2018 More... Carotid artery disease (HCC) [...] 08/15/18 PROGRESS Observed: 08/09/2018 Status: COMPLETED Source: [place] 10:18 AM [facility] REPOSITORY O ID: [id number] Author: Jose C Rodriguez Service: (none) Author [...] to using crocs. She has appointment with [employer] later today Of note, she has seen [...] place - Cardiomegaly - Carotid artery disease ([facility]) left - Chronic hypoxemic respiratory failure ([facility]) 07/01/2018 - Chronic kidney disease (CKD) stage G3b/A2, moderately decreased glomerular filtration rate (GFR) between 30-44 mL/min/1.73 square meter and albuminuria creatinine ratio between 30-299 mg/g ([facility]) Dr. Martin - COPD (chronic obstructive pulmonary disease) ([facility]) Dr. Cruz - Depression - Diabetes ([facility]) - Diabetic neuropathy ([facility]) - Edema - ESRD (end stage renal disease) on dialysis ([facility]) [facility], Dr. Martin - GERD (gastroesophageal reflux disease) - Gout with hyperuricemia - HH (hiatus hernia) - HOCM (hypertrophic obstructive cardiomyopathy) ([facility]) S/P Septal Myectomy in 2003. Now with LVEF 50% and mod/severe pulm HTN. - HTN (hypertension) - Hyperlipidemia - Morbid obesity with BMI of 40.0-44.9, adult ([facility]) - Presence of combination internal cardiac defibrillator (ICD) and pacemaker - Sleep apnea 2011 not on CPAP, unable to tolerate mask 02/2017 - SVT (supraventricular tachycardia) ([facility]) NSVT and questionable VT in 2003 post [...] mellitus (HCC) (I73.9) PAD (peripheral artery disease) ([facility]) PLAN: 1. History and physical examination completed [...] these instead 4. She has appointment with [employer] for diabetic shoes. She will wear her diabetic shoes once she wears them 5. Reviewed xrays of left foot. No signs of infection. Discussed pain of left foot. Likely that of arthritis. Continue with appropriate shoes . Anticipate relief with diabetic shoe and inserts 6. F/u in 2 weeks Jose C Rodriguez DPM PROGRESS Observed: 08/09/2018 Status: COMPLETED Source: [place] 9:55 AM [facility] REPOSITORY HNO ID: [id number] Author: Katie Gonzalez RN Service: (none) Author [...] she has an appointment later today with [facility] for new diabetic shoes. HAYLEY Observed: 08/09/2018 Status: COMPLETED Source: [place] 9:40 AM [facility] REPOSITORY Office Visit (PODIWS) KEVENLUZ Salvador ([id number]) 1940 F Date Time Provider Department 08/09/18 9:40 AM JOSE C RODRIGUEZ During your visit today, we recorded the following information about you: Katie Gonzalez RN 08/10/2018 7:03 AM Signed AMB ROOMING INTAKE FLOWSHEET DATA Risk Screening Do you have concerns about personal safety or safety in the home?: No Pain Pain Score: 04/26 Pain Location: Other: See Comment (bilateral feet) Description: Throbbing Duration Amount of Time: (several) Duration Units: Years Frequency: Continuous Intervention: Relaxation Patient presents for f/u on blood blister, L hallux. Patient's daughter states they were putting betadine on blister and it seems to have dried up. Pt presents wearing crocs to her appointment today but states she has an appointment later today with [facility] [employer] for new diabetic shoes. Jose C Rodriguez [...] to using crocs. She has appointment with [facility] later today Of note, she has seen [...] (HCC) left - Chronic hypoxemic respiratory failure ([facility]) 07/01/2018 - Chronic kidney disease (CKD) stage G3b/A2, moderately decreased glomerular filtration rate (GFR) between 30-44 mL/min/1.73 square meter and albuminuria creatinine ratio between 30-299 mg/g ([facility]) Dr. Martin - COPD (chronic obstructive pulmonary disease) ([facility]) Dr. Cruz - Depression - Diabetes ([facility]) - Diabetic neuropathy ([facility]) - Edema - ESRD (end stage renal disease) on dialysis ([facility]) [facility], Dr. Martin - GERD (gastroesophageal reflux disease) - Gout with hyperuricemia - HH (hiatus hernia) - HOCM (hypertrophic obstructive cardiomyopathy) ([facility]) S/P Septal Myectomy in 2003. Now with LVEF 50% and mod/severe pulm HTN. - HTN (hypertension) - Hyperlipidemia - Morbid obesity with BMI of 40.0-44.9, adult ([facility]) - Presence of combination internal cardiac defibrillator (ICD) and pacemaker - Sleep apnea 2011 not on CPAP, unable to tolerate mask 02/2017 - SVT (supraventricular tachycardia) ([facility]) NSVT and questionable VT in 2003 post [...] mellitus (HCC) (I73.9) PAD (peripheral artery disease) ([facility]) PLAN: 1. History and physical examination completed [...] these instead 4. She has appointment with [facility] for diabetic shoes. She will wear her diabetic shoes once she wears them 5. Reviewed xrays of left foot. No signs of infection. Discussed pain of left foot. Likely that of arthritis. Continue with appropriate shoes . Anticipate relief with diabetic shoe and inserts 6. F/u in 2 weeks Jose C Rodriguez DPM Referring Provider: JOSE C RODRIGUEZ [[id number]] Allergies As of Date: 08/09/2018 Noted Allergy [...] complication associated with type 2 diabetes mellitus ([facility]) [E11.49] PAD (peripheral artery disease) ([facility]) [I73.9] Prescriptions as of 08/09/2018 Sig: APIXABAN [...] 01/23/2018 Priority: I More... SVT (supraventricular tachycardia) ([facility]) [I47.1] 01/21/2018 More... Carotid artery disease ([facility]) [I77.9] 01/22/2018 CAD (coronary artery disease) [I25.10] [...] OCCULT BLD Collected: 08/05/2018 Status: F Source: [facility] 7:30 AM [facility] [place] REPOSITORY TYPE CODE TESTS RESULT OUT OF RANGE REFERENCE UNITS LAB IFO Negative Abnormal Alert Immuno Positive FOB Result Comment: This test was developed and its performance characteristics determined by [facility]'s [facility] [place] ([facility]). It has not been cleared or approved by the FDA. [facility] is regulated under CLIA as qualified to perform high-complexity testing. This test is used for clinical purposes. It should not be regarded as investigational or for research. Performed By: #### IFOBT #### [facility] [address] [place], [place] [address] PROGRESS Observed: 08/04/2018 Status: COMPLETED Source: [place] 4:12 PM [facility] REPOSITORY HNO ID: [id number] Author: Adriel (Elías) Yary Service: (none) Author Type: Nurse Practitioner [...] swallowing tests done when she was at [facility] quite a while back early this [...] Diagnosis Date - Arthritis - Atrial fibrillation ([facility]) - CAD (coronary artery disease) stents x9, defibrillator, CABG. Seeing Dr. Cardona - Cardiac defibrillator in place - Cardiomegaly - Carotid artery disease ([facility]) left - Chronic hypoxemic respiratory failure ([facility]) 07/01/2018 - Chronic kidney disease (CKD) stage G3b/A2, moderately decreased glomerular filtration rate (GFR) between 30-44 mL/min/1.73 square meter and albuminuria creatinine ratio between 30-299 mg/g ([facility]) Dr. Martin - COPD (chronic obstructive pulmonary disease) ([facility]) Dr. Cruz - Depression - Diabetes ([facility]) - Diabetic neuropathy ([facility]) - Edema - ESRD (end stage renal disease) on dialysis ([facility]) [facility], Dr. Martin - GERD (gastroesophageal reflux disease) - Gout with hyperuricemia - HH (hiatus hernia) - HOCM (hypertrophic obstructive cardiomyopathy) ([facility]) S/P Septal Myectomy in 2003. Now with LVEF 50% and mod/severe pulm HTN. - HTN (hypertension) - Hyperlipidemia - Morbid obesity with BMI of 40.0-44.9, adult ([facility]) - Presence of combination internal cardiac defibrillator (ICD) and pacemaker - Sleep apnea 2011 not on CPAP, unable to tolerate mask 02/2017 - SVT (supraventricular tachycardia) ([facility]) NSVT and questionable VT in 2003 post [...] colonoscopy in the past due to recent PA. Will ask for new evaluation for continued [...] - FECAL OCCULT BLOOD TEST Adriel Pringle APRN.CHIEF MECHANICAL ENGINEER CBC AND DIFFERENTIAL Collected: 08/04/2018 Status: F Source: [place] 2:17 PM [facility] [place] REPOSITORY TYPE CODE TESTS RESULT OUT OF [...] k/uL Abs Lymph 1.29 LAB AMONO % [place]% 9.9 LAB AAMONO <0.87 k/uL Abs [place] 0.80 LAB AEOS % Eosin% 2.2 LAB AAEOS <0.46 k/uL Abs Eosin 0.18 LAB ABASO % Baso% 0.6 LAB AABASO <0.11 k/uL Abs Baso 0.05 LAB AUNRBC 0 /100 WBC NRBCs 0.0 LAB ABNRBC <0.01 k/uL Absolute nRBC <0.01 LAB DTYP DTYPE Auto Diff Performed By: #### CBCDIF, CMP, HBA1C #### [facility] [address] [place], [place] [address] COMP METABOLIC PANEL Collected: 08/04/2018 Status: F Source: [place] 2:17 PM [facility]IN C[facility] REPOSITORY TYPE CODE TESTS [...] mg/dL Glucose High 157 Result Comment: The [place] Diabetes Association (ADA) provides guidance for cutoff [...] Standards of Medical Care in Diabetes 2016, [place] [employer]. Diabetes Care. 2016.39(Suppl 1). LAB [...] has been calibrated to be traceable to IDNV. An eGFR <60 mL/min/1.73m2 for >3 months is consistent with chronic kidney disease. Refer to KDOQI guidelines for clinical interpretation. In patients with unstable renal function, e.g. those with acute kidney injury, the eGFR may not accurately reflect actual GFR. Performed By: #### CBCDIF, CMP, HBA1C #### [facility] [employer] [address] [place], [place] [address] HEMOGLOBIN A1C Collected: 08/04/2018 Status: F Source: [place] 2:17 PM [facility] REPOSITORY TYPE CODE TESTS RESULT OUT OF REFERENCE UNITS RANGE LAB HGBA1C 4.3-5.6 % High Hemoglobin A1c 6.3 LAB HBA0 mg/dL Est. Average Glucose 134 Result Comment: eAG: (Estimated average glucose) is a calculated value from HgbA1c and is advertising account representative of the average blood glucose level in the last 2-3 month period. Performed By: #### CBCDIF, CMP, HBA1C #### [facility] [employer] [address] [place], [place] [address] CNOV Observed: 08/04/2018 Status: COMPLETED Source: [place] 1:20 PM [facility] REPOSITORY Office Visit (FAMPWS) LUZ BACA ([id number]) 1940 F Date Time Provider Department 08/04/18 1:20 PM [facility] ([employer]) FAMPWS During your visit today, we recorded [...] swallowing tests done when she was at [facility] quite a while back early this [...] Diagnosis Date - Arthritis - Atrial fibrillation ([facility]) - CAD (coronary artery disease) stents x9, defibrillator, CABG. Seeing Dr. Cardona - Cardiac defibrillator in place - Cardiomegaly - Carotid artery disease (HCC) left - Chronic hypoxemic respiratory failure ([facility]) 07/01/2018 - Chronic kidney disease (CKD) stage G3b/A2, moderately decreased glomerular filtration rate (GFR) between 30-44 mL/min/1.73 square meter and albuminuria creatinine ratio between 30-299 mg/g ([facility]) Dr. Martin - COPD (chronic obstructive pulmonary disease) ([facility]) Dr. Cruz - Depression - Diabetes ([facility]) - Diabetic neuropathy ([facility]) - Edema - ESRD (end stage renal disease) on dialysis ([facility]) Dr. Veronica SERRANO - GERD (gastroesophageal reflux disease) - Gout with hyperuricemia - HH (hiatus hernia) - HOCM (hypertrophic obstructive cardiomyopathy) ([facility]) S/P Septal Myectomy in 2003. Now with LVEF 50% and mod/severe pulm HTN. - HTN (hypertension) - Hyperlipidemia - Morbid obesity with BMI of 40.0-44.9, adult ([facility]) - Presence of combination internal cardiac defibrillator (ICD) and pacemaker - Sleep apnea 2011 not on CPAP, unable to tolerate mask 02/2017 - SVT (supraventricular tachycardia) ([facility]) NSVT and questionable VT in 2003 post [...] colonoscopy in the past due to recent PA. Will ask for new evaluation for continued [...] - FECAL OCCULT BLOOD TEST Adriel Pringle APRN.CHIEF MECHANICAL ENGINEER Referring Provider: JAMESON KAMARA) [[id number]] Allergies As of Date: 08/04/2018 Noted Allergy [...] [R53.83] Order(s):CBC + DIFF [SQCBCDIF] Order #: [id number] FUTURE COMP METABOLIC PANEL [SQCMP] Order #: [id number] FUTURE FECAL OCCULT BLOOD TEST [SQIFOBT] Order #: [id number] FUTURE CONSULT TO GENERAL SURGERY [9011] Order #: [id number]: 1 Prescriptions as of 08/04/2018 Sig: APIXABAN [...] PT ED Observed: 08/02/2018 Status: COMPLETED Source: [place] 2:36 PM [facility] OTHER [place] REPOSITORY HNO ID: [id number] Author: Kennedi Briseno) ALLYSON Montiel Service: (none) [...] Signed By: Kennedi Montiel RN In Department: [facility] FINE WIRE DRAWER NURSING PROG Observed: 08/02/2018 Status: COMPLETED Source: [place] 2:30 PM [facility] OTHER [place] REPOSITORY HNO ID: [id number] Author: Kennedi Briseno) ALLYSON Montiel Service: (none) [...] 1V FRONTAL Observed: 08/02/2018 Status: F Source: [facility] 1:03 PM CLINIC OTHER CAMPUS REPOSITORY * [...] changes. Other: The bony structures appear intact. Top Lift Cutter: PSCB Transcribe Date/Time: Aug 02 2018 1:10P Dictated by : DONNIE HARRISON MD This examination was interpreted and the report reviewed and electronically signed by: DONNIE HARRISON MD on Aug 02 2018 1:14PM EST [id number] OP NOT Observed: 08/02/2018 Status: COMPLETED Source: [place] 12:18 PM CLINIC OTHER CAMPUS REPOSITORY HNO ID: [id number] Author: Michael Hogan Service: Vascular Surgery Author Type: Physician Type: Brief Op Note Filed: 08/02/2018 12:18 PM Note Text: BRIEF OP NOTE LOG ID: [id number] Surgery/Procedure Date: 08/02/2018 Incision/Procedure Start Time: 11:59 AM Incision Close/Procedure End Time: 12:15 PM Surgeon(s)/Proceduralist(s) and Tester Electronic Scale(s): Surgeon(s) and Role: * Michael Hogan - [...] HISTORY PHYSICAL Observed: 08/02/2018 Status: COMPLETED Source: [place] 11:26 AM [facility] OTHER CAMPUS REPOSITORY O ID: [id number] Author: Michael Hogan Service: Vascular Surgery Author [...] Diagnosis Date - Arthritis - Atrial fibrillation ([facility]) - CAD (coronary artery disease) stents x9, defibrillator, CABG. Seeing Dr. Cardona - Cardiac defibrillator in place - Cardiomegaly - Carotid artery disease (HCC) left - Chronic hypoxemic respiratory failure ([facility]) 07/01/2018 - Chronic kidney disease (CKD) stage G3b/A2, moderately decreased glomerular filtration rate (GFR) between 30-44 mL/min/1.73 square meter and albuminuria creatinine ratio between 30-299 mg/g ([facility]) Dr. Martin - COPD (chronic obstructive pulmonary disease) ([facility]) Dr. Cruz - Depression - Diabetes ([facility]) - Diabetic neuropathy ([facility]) - Edema - ESRD (end stage renal disease) on dialysis ([facility]) [facility], Dr. Martin - GERD (gastroesophageal reflux disease) - Gout with hyperuricemia - HH (hiatus hernia) - HOCM (hypertrophic obstructive cardiomyopathy) ([facility]) S/P Septal Myectomy in 2003. Now with LVEF 50% and mod/severe pulm HTN. - HTN (hypertension) - Hyperlipidemia - Morbid obesity with BMI of 40.0-44.9, adult ([facility]) - Presence of combination internal cardiac defibrillator (ICD) and pacemaker - Sleep apnea 2011 not on CPAP, unable to tolerate mask 02/2017 - SVT (supraventricular tachycardia) ([facility]) NSVT and questionable VT in 2003 post [...] age 89, HTN - Heart Failure Mother PA - Cancer Father age 71, lung cancer [...] 02, 2018 TIME: 11:26 AM PAGER/CONTACT #: [id number] PT ED Observed: 08/02/2018 Status: COMPLETED Source: [place] 10:17 AM [facility] REPOSITORY HNO ID: [id number] Author: Clay (Rn) Laina RN Service: (none) [...] Signed By: Clay Marina RN In Department: [facility] FINE WIRE DRAWER OPERATIVE NO Observed: 08/02/2018 Status: COMPLETED Source: [place] 12:00 AM [facility] OTHER [place] REPOSITORY HNO ID: [id number] Author: Michael Hogan Service: Vascular Surgery Author Type: Physician Type: Operative Report Filed: 08/23/2018 2:26 PM Note Text: [facility] - Operative Report LUZ BACA : 1940 AGE: 77. SEX: F PATIENT TYPE: A HOSP SVC: JOURDAN LOCATION: [facility] ATTENDING PHYSICIAN: Michael Hogan D.O. CSN NUMBER: [id number] DATE OF SURGERY/PROCEDURE: 08/02/2018 INCISION/PROCEDURE START TIME: 11:59. INCISION CLOSE/PROCEDURE END TIME: 12:15. PREOPERATIVE DIAGNOSIS: ESRD, malfunctioning dialysis catheter POSTOPERATIVE DIAGNOSIS: same SURGEON: Michael Hogan D.O. CLIMATOLOGY TEACHER: Shaila George. SURGERY/PROCEDURE: Replacement of right 19 [...] PROCEDURE: The patient was taken to the Bankruptcy Law Specialist, and sign-in was performed. Following this, she was placed supine on the Bankruptcy Law Specialist table. Her right chest and neck were prepped and draped in standard sterile fashion. A time-out was performed. She was then given adequate sedation. Following this, I got a wire through the inferior vena cava. We infiltrated the surrounding tissue with lidocaine. We then freed the surrounding tissue with a curved hemostat. Following this, we removed the old GlidePath catheter, placed a 7-Kittitian sheath within the internal jugular vein, and [...] unit in stable condition. Michael Hogan D.O. [id number] PROGRESS Observed: 07/28/2018 Status: COMPLETED Source: [place] 12:26 PM [facility] REPOSITORY O ID: [id number] Author: Michael Hogan Service: (none) Author Type: Physician Type: Progress Notes Filed: 07/28/2018 12:27 PM Note Text: This office note has been dictated. Michael Hogan DO CNOV Observed: 07/28/2018 Status: COMPLETED Source: [place] 11:30 AM [facility] REPOSITORY Office Visit (VASSMD) LUZ BACA ([id number]) 1940 F Date Time Provider Department 07/28/18 11:30 AM MICHAEL HOGAN VASBRIGHT During your visit today, we recorded the following information about you: Pulse Blood pressure Weight Height 55/minute 95/61 95 kg 1.727 m Michael Hogan DO 07/28/2018 12:27 PM Signed This office note has been dictated. Michael Hogan DO Referring Provider: MICHAEL HOGAN [[id number]] Allergies As of Date: 07/28/2018 Noted Allergy [...] Primary Visit Diagnosis:ESRD (end stage renal disease) ([facility]) [N18.6] Other Visit Diagnosis:Peripheral arterial disease ([facility]) [I73.9] Prescriptions as of 07/28/2018 Sig: INSULIN [...] 01/23/2018 Priority: I More... SVT (supraventricular tachycardia) ([facility]) [I47.1] 01/21/2018 More... Carotid artery disease (HCC) [...] 07/28/18 HOSP Observed: 07/28/2018 Status: COMPLETED Source: [place] 12:00 AM CLINIC OTHER CAMPUS REPOSITORY Patient:Luz Baca MRN: <[id number]> Height:5' 8(1.727 m) Weight:209 lb 6.4 oz [...] Hyperlipidemia [E78.5] COPD (chronic obstructive pulmonary disease) ([facility]) [J44.9] Sleep apnea [G47.30] GERD (gastroesophageal reflux disease) [K21.9] Arthritis [M19.90] Depression [F32.9] Atrial fibrillation ([facility]) [I48.91] Uncontrolled type 2 diabetes mellitus with stage 3 chronic kidney disease, with long-term current use of insulin ([facility]) [E11.22, E11.65, N18.3, Z79.4] Obesity [E66.09] Gout [M10.9] Pacemaker [Z95.0] Chronic combined systolic and diastolic CHF (congestive heart failure) ([facility]) [I50.42] Pulmonary hypertension ([facility]) [I27.20] Hyponatremia [E87.1] Acute renal failure superimposed on stage 3 chronic kidney disease ([facility]) [N17.9, N18.3] Obesity, Class II, BMI 35-39.9 [E66.9] ESRD on dialysis ([facility]) [N18.6, Z99.2] Chronic hypoxemic respiratory failure ([facility]) [J96.11] Allergies: Aspirin Bactrim [Sulfamethoxazole-Trimethoprim] Latex Penicillins Tetracycline Atorvastatin Codeine Dilaudid [Hydromorphone (Bulk)] Meperidine Pentazocine Pioglitazone Propoxyphene Date Verified: 07/28/18 Lab Values Lab Value Units Date High Low POTA* 5.3 mmol/L 07/12/2018 5.1 3.7 Progress Notes ([facility]): Michael Hogan, 08/01/2018 9:28 AM Unsigned Automation Technician NAME: LUZ [facility] NO: [id number] DATE OF SERVICE: 07/28/2018 Subjective: Ms. Baca [...] plan. Michael Hogan D.O. KB/089 Audio #: [id number] Date Dictated: 07/28/2018 11:37:21 Date Typed: 08/01/2018 09:18:06 Date Revised: Progress Notes ([facility] ): Michael Hogan DO 07/28/2018 12:27 PM Signed This office note has been dictated. Michael Hogan DO PROGRESS Observed: 07/28/2018 Status: COMPLETED Source: [place] 12:00 AM [facility] REPOSITORY O ID: [id number] Author: Michael Hogan Service: Vascular Surgery Author Type: Physician Type: Progress Notes Filed: 08/10/2018 3:20 PM Note Text: NAME: LUZ RUSH [facility] NO: [id number] DATE OF SERVICE: 07/28/2018 Subjective: Ms. Baca [...] plan. Michael Hogan D.O. KB/089 Audio #: [id number] Date Dictated: 07/28/2018 11:37:21 Date Typed: 08/01/2018 09:18:06 Date Revised: PROGRESS Observed: 07/27/2018 Status: COMPLETED Source: [place] 10:36 AM [facility] REPOSITORY HNO ID: [id number] Author: Jameson Adams) Koffi Service: (none) Author Type: Physician Type: Progress Notes Filed: 07/27/2018 10:36 AM Note Text: Reviewed. PROGRESS Observed: 07/27/2018 Status: COMPLETED Source: [place] 10:02 AM [facility] REPOSITORY HNO ID: [id number] Author: Remi Briseno) Brent Service: (none) Author Type: Registered Nurse Type: Progress Notes Filed: 07/27/2018 10:17 AM Note Text: PRIMARY CARE COORDINATION FOLLOW-UP NOTE Provider Action/FYI Pt saw Dr. Rodriguez yesterday. Drained blood blister and instructed pt to wear surgical shoe. Gave script for new diabetic shoes. TC to [facility] [employer], pt is due for another shoe per Medicare on 08/25 or after Patient identified by name and date of . YES Spoke to Angela at [employer] [facility] [employer] and Russell at Dr. Rodriguez's office Summary: TC to Russell, asked for new script for diabletic shoes, states Dr. Rodriguez wrote one yesterday and gave to pt. TC to Angela at [employer], informed pt's diabetic shoes are too tight and she is developing blisters. Pt is wearing croc clogs and pt is a fall risk. Dgt states they told [employer] at the time they got the shoes [...] call Dr. Rodriguez's office for script. Asked [employer] to call pt to schedule an appt and discuss with patient. Hotshot Superintendent plan for next outreach: Will follow up as scheduled Signature Remi Kennedy RN July 27, 2018 LUDA Observed: 07/27/2018 Status: COMPLETED Source: [place] 12:00 AM [facility] REPOSITORY Patient Outreach (FAMPWS) LUZ BACA ([id number]) 1940 F Date Time Provider Department 07/27/18 REMI KENNEDY (ALLYSON) ANTOINE During your visit today, we recorded the following information about you: Remi Kennedy RN 07/27/2018 10:17 AM Signed PRIMARY CARE COORDINATION FOLLOW-UP NOTE Provider Action/FYI Pt saw Dr. Rodriguez yesterday. Drained blood blister and instructed pt to wear surgical shoe. Gave script for new diabetic shoes. TC to [facility] [employer], pt is due for another shoe per Medicare on 08/25 or after Patient identified by name and date of . YES Spoke to Angela at [facility] [employer] and Russell at Dr. Rodriguez's office Summary: TC to [facility], asked for new script for diabletic shoes, states Dr. Rodriguez wrote one yesterday and gave to pt. TC to Angela at [facility] [employer], informed pt's diabetic shoes are too tight and she is developing blisters. Pt is wearing croc clogs and pt is a fall risk. Dgt states they told [facility] [employer] at the time they got the shoes [...] call Dr. Rodriguez's office for script. Asked [facility] [employer] to call pt to schedule an appt and discuss with patient. Hotshot Superintendent plan for next outreach: Will follow up [...] RN - Fully Assessed Reason for Visit: [employer] Chronic Care [8612] Prescriptions as of 07/27/2018 Sig: INSULIN ASPART [...] 07/28/18 PROGRESS Observed: 07/26/2018 Status: COMPLETED Source: [place] 8:43 PM [facility] REPOSITORY [facility] ID: [id number] Author: Jose C Rodriguez Service: (none) Author [...] fit. She received her diabetic shoes from [employer] last October. She informed [employer] that she wears size 8.5-9.0 She has [...] and albuminuria creatinine ratio between 30-299 mg/g ([facility]) Dr. Martin - COPD (chronic obstructive pulmonary disease) ([facility]) Dr. Cruz - Depression - Diabetes ([facility]) - Diabetic neuropathy ([facility]) - Edema - ESRD (end stage renal disease) on dialysis ([facility]) MW, Dr. Martin - GERD (gastroesophageal reflux disease) - Gout with hyperuricemia - HH (hiatus hernia) - HOCM (hypertrophic obstructive cardiomyopathy) ([facility]) S/P Septal Myectomy in 2003. Now with LVEF 50% and mod/severe pulm HTN. - HTN (hypertension) - Hyperlipidemia - Morbid obesity with BMI of 40.0-44.9, adult ([facility]) - Presence of combination internal cardiac defibrillator (ICD) and pacemaker - Sleep apnea 2011 not on CPAP, unable to tolerate mask 02/2017 - SVT (supraventricular tachycardia) ([facility]) NSVT and questionable VT in 2003 post [...] complication associated with type 2 diabetes mellitus ([facility]) (I73.9) PAD (peripheral artery disease) ([facility]) PLAN: 1. History and physical examination completed [...] DPM PROGRESS Observed: 07/26/2018 Status: COMPLETED Source: [place] 1:19 PM [facility] REPOSITORY HNO ID: [id number] Author: Kathie Leavitt MA Service: (none) Author Type: (none) Type: Progress Notes Filed: 07/26/2018 8:59 PM Note Text: Applied betadine on L hallux ulcer and covered with band aid. Patient declined Post Op shoe that she was dispensed KM. PROGRESS Observed: 07/26/2018 Status: COMPLETED Source: [place] 12:39 PM [facility] REPOSITORY HNO ID: [id number] Author: Esperanza (Rt) Guadalupe Aldana Service: (none) Author Type: Bomb Loader Type: Progress Notes Filed: 07/26/2018 12:39 PM [...] 3V AP/LAT/OBL Observed: 07/26/2018 Status: F Source: [facility] 12:37 PM [facility] REPOSITORY * * *Final Report* * * DATE OF EXAM: Jul 26 2018 12:37PM WRX [id number] - XR FOOT 3V AP/LAT/OBL LT / PROCEDURE REASON: multiple diagnoses * * * * Physician Interpretation * * * * HISTORY: 77-YEAR-OLD FEMALE WITH Blister of toe of left foot, initial encounter PAD (peripheral artery disease) ([facility]) . open wound on the tip of [...] the forefoot. IMPRESSION: NO EVIDENCE OF OSTEOMYELITIS. Top Lift Cutter: SALINAS Transcribe Date/Time: Jul 26 2018 5:08P Dictated by : LUIS MCCRARY MD This examination was interpreted and the report reviewed and electronically signed by: LUIS MCCRARY MD on Jul 26 2018 5:10PM EST [id number] PROGRESS Observed: 07/26/2018 Status: COMPLETED Source: [place] 11:35 AM [facility] REPOSITORY HNO ID: [id number] Author: Katie Gonzalez RN Service: (none) Author [...] with podiatry. She presents to office wearing K-Qatari shoes she purchased today at [facility]. She has received diabetic shoes from [employer] but states they are too small. She was advised to go to [employer] and exchange for a different pair but her daugher states no, we're done messing with [employer]. Pt is keeping toe covered with band aid. CNOV Observed: 07/26/2018 Status: COMPLETED Source: [place] 11:25 AM [facility] REPOSITORY Office Visit (PODIWS) LUZ BACA ([id number]) 1940 F Date Time Provider Department 07/26/18 [...] with podiatry. She presents to office wearing K-Qatari shoes she purchased today at [facility]. She has received diabetic shoes from [employer] but states they are too small. She was advised to go to [employer] and exchange for a different pair but her daugher states no, we're done messing with [employer]. Pt is keeping toe covered with band aid. Kathie Leavitt MA 07/26/2018 12:16 PM Addendum Betadine daily to toe Where Post Op shoe Have XR today we will call with results. [facility] [address] [facility] [address] PH: [phone] [place] [address] [facility] [address], [facility] [address] PH: [phone] [place] [address] [facility] [address] PH: [phone] [place] [address] [facility] [address] PH: [phone] or [phone] [place] [address] [facility] [address] PH: [phone] [place] [address] [facility] [address] PH: [phone] Kathie Leavitt MA 07/26/2018 8:59 PM Signed [...] fit. She received her diabetic shoes from [employer] last October. She informed [employer] that she wears size 8.5-9.0 She has [...] Diagnosis Date - Arthritis - Atrial fibrillation ([facility]) - CAD (coronary artery disease) stents x9, defibrillator, CABG. Seeing Dr. Cardona - Cardiac defibrillator in place - Cardiomegaly - Carotid artery disease ([facility]) left - Chronic hypoxemic respiratory failure ([facility]) 07/01/2018 - Chronic kidney disease (CKD) stage G3b/A2, moderately decreased glomerular filtration rate (GFR) between 30-44 mL/min/1.73 square meter and albuminuria creatinine ratio between 30-299 mg/g ([facility]) Dr. Martin - COPD (chronic obstructive pulmonary disease) ([facility]) Dr. Cruz - Depression - Diabetes ([facility]) - Diabetic neuropathy ([facility]) - Edema - ESRD (end stage renal disease) on dialysis ([facility]) [facility], Dr. Martin - GERD (gastroesophageal reflux disease) - Gout with hyperuricemia - HH (hiatus hernia) - HOCM (hypertrophic obstructive cardiomyopathy) ([facility]) S/P Septal Myectomy in 2003. Now with LVEF 50% and mod/severe pulm HTN. - HTN (hypertension) - Hyperlipidemia - Morbid obesity with BMI of 40.0-44.9, adult ([facility]) - Presence of combination internal cardiac defibrillator (ICD) and pacemaker - Sleep apnea 2011 not on CPAP, unable to tolerate mask 02/2017 - SVT (supraventricular tachycardia) ([facility]) NSVT and questionable VT in 2003 post [...] mellitus (HCC) (I73.9) PAD (peripheral artery disease) ([facility]) PLAN: 1. History and physical examination completed [...] Rodriguez DPM Referring Provider: JOSE C RODRIGUEZ [[id number]] Allergies As of Date: 07/26/2018 Noted Allergy [...] complication associated with type 2 diabetes mellitus ([facility]) [E11.49] PAD (peripheral artery disease) ([facility]) [I73.9] Order(s):XR FOOT GENERAL 3V AP/LAT/OBL LT [[id number]] Order #: [id number] FUTURE ORTHO SHOE CUSTOM SHOES [[id number]] Order #: [id number] Prescriptions as of 07/26/2018 Sig: INSULIN ASPART [...] we will call with results. Desiree Bioncs [place] [address], [facility] [address] PH: [phone] [place] [address] [facility] [address], [place] [address] PH: [phone] [place] [address], [place] [address] PH: [phone] [place] [address], [place] [address] PH: [phone] or [phone] [place] [address], [facility] [address] PH: [phone] [place] [address] [facility] [address] PH: [phone] Disposition: Return in about 1 week (around 08/02/2018) for Left toe f/u. Follow-up and Disposition History Recorded Encounter Status:Closed by JOSE C RODRIGUEZ DPM on 07/26/18 PROGRESS Observed: 07/21/2018 Status: COMPLETED Source: [place] 5:09 PM [facility] RE[facility] HNO ID: [id number] Author: Remi (Rn) Brent Service: (none) Author Type: Registered Nurse Type: Progress Notes Filed: 07/21/2018 5:24 PM Note Text: PRIMARY CARE COORDINATION IN OFFICE VISIT WITH PCP Patient has been identified by name and date of . PCP Assessment/Plan: Reviewed PCP plan with patient using [employer] Discussed Diabetic Shoes and pt can take them back to [employer] for them to fix or order new [...] crocs. States pt can go back to [employer] and they should fix them or give her a new pair. Next Office Visit: 10/06/2018 Plan For Next Call: One week Remi Kennedy RN July 21, 2018 PROGRESS Observed: 07/21/2018 Status: COMPLETED Source: [place] 4:33 PM [facility] [place] REPOSITORY HNO ID: [id number] Author: Jameson Adams) Koffi Service: (none) Author [...] (HCC) left - Chronic hypoxemic respiratory failure ([facility]) 07/01/2018 - Chronic kidney disease (CKD) stage G3b/A2, moderately decreased glomerular filtration rate (GFR) between 30-44 mL/min/1.73 square meter and albuminuria creatinine ratio between 30-299 mg/g ([facility]) Dr. Martin - COPD (chronic obstructive pulmonary disease) ([facility]) Dr. Cruz - Depression - Diabetes ([facility]) - Diabetic neuropathy ([facility]) - Edema - ESRD (end stage renal disease) on dialysis ([facility]) [facility], Dr. Martin - GERD (gastroesophageal reflux disease) - Gout with hyperuricemia - HH (hiatus hernia) - HOCM (hypertrophic obstructive cardiomyopathy) ([facility]) S/P Septal Myectomy in 2003. Now with LVEF 50% and mod/severe pulm HTN. - HTN (hypertension) - Hyperlipidemia - Morbid obesity with BMI of 40.0-44.9, adult ([facility]) - Presence of combination internal cardiac defibrillator (ICD) and pacemaker - Sleep apnea 2011 not on CPAP, unable to tolerate mask 02/2017 - SVT (supraventricular tachycardia) ([facility]) NSVT and questionable VT in 2003 post [...] age 89, HTN - Heart Failure Mother PA - Cancer Father age 71, lung cancer [...] MD CNOV Observed: 07/21/2018 Status: COMPLETED Source: [place] 4:20 PM [facility] REPOSITORY [facility] ([id number]) 1940 F Date Time Provider Department 07/21/18 4:20 PM JAMESON KAMARA) SLOANWS During your visit today, we recorded [...] (HCC) left - Chronic hypoxemic respiratory failure ([facility]) 07/01/2018 - Chronic kidney disease (CKD) stage G3b/A2, moderately decreased glomerular filtration rate (GFR) between 30-44 mL/min/1.73 square meter and albuminuria creatinine ratio between 30-299 mg/g ([facility]) Dr. Martin - COPD (chronic obstructive pulmonary disease) ([facility]) Dr. Cruz - Depression - Diabetes ([facility]) - Diabetic neuropathy ([facility]) - Edema - ESRD (end stage renal disease) on dialysis ([facility]) [facility], Dr. Martin - GERD (gastroesophageal reflux disease) - Gout with hyperuricemia - HH (hiatus hernia) - HOCM (hypertrophic obstructive cardiomyopathy) ([facility]) S/P Septal Myectomy in 2003. Now with LVEF 50% and mod/severe pulm HTN. - HTN (hypertension) - Hyperlipidemia - Morbid obesity with BMI of 40.0-44.9, adult ([facility]) - Presence of combination internal cardiac defibrillator (ICD) and pacemaker - Sleep apnea 2011 not on CPAP, unable to tolerate mask 02/2017 - SVT (supraventricular tachycardia) ([facility]) NSVT and questionable VT in 2003 post [...] age 89, HTN - Heart Failure Mother PA - Cancer Father age 71, lung cancer [...] Jameson Kamara MD Referring Provider: JAMESON KAMARA) [[id number]] Allergies As of Date: 07/21/2018 Noted Allergy [...] is not on file. Encounter Status:Closed by JAMEOSN KAMARA MD on 07/22/18 PROGRESS Observed: 07/21/2018 Status: COMPLETED Source: [place] 12:30 PM [facility] REPOSITORY HNO ID: [id number] Author: Remi Briseno) Brent Service: (none) Author [...] in AM and 36 units at bedtime [employer] Superintendent plan for next outreach: Will follow up one week Signature eRmi Kennedy RN July 21, 2018 ELÍASTOUTREACH Observed: 07/21/2018 Status: COMPLETED Source: [place] 12:00 AM [facility] REPOSITORY Patient Outreach (FAMPWS) BACALUZ NAVARRO ([id number]) 1940 F Date Time Provider Department 07/21/18 [...] in AM and 36 units at bedtime [employer] Superintendent plan for next outreach: Will follow up [...] [place] - Fully Assessed Reason for Visit: [employer] Chronic Care [[id number]] Prescriptions as of 07/21/2018 Sig: CARVEDILOL 3.125 [...] 07/21/18 LUDA Observed: 07/21/2018 Status: COMPLETED Source: [place] 12:00 AM [facility] REPOSITORY Patient Outreach (FAMPWS) LUZ BACA ([id number]) 1940 F Date Time Provider Department 07/21/18 [...] and pt can take them back to [employer] for them to fix or order new [...] crocs. States pt can go back to [employer] and they should fix them or give [...] Marino - Fully Assessed Reason for Visit: [employer]-In Office Visit [0224] Prescriptions as of 07/21/2018 Sig: INSULIN ASPART [...] - FOREARM Observed: 07/20/2018 Status: F Source: [place] 9:53 AM [facility] REPOSITORY * * *Final Report* * * DATE OF EXAM: Jul 20 2018 9:53AM [facility] 0870 - BD DXA - FOREARM [...] Osteoporosis Less than or equal to -2.5 Top Lift Cutter: SALINAS Transcribe Date/Time: Jul 20 2018 1:17P Dictated by : ELLA FRY DO This examination was interpreted and the report reviewed and electronically signed by: ELLA FRY DO on Jul 23 2018 2:40PM EST [id number] DXA - AXIAL Observed: 07/20/2018 Status: F Source: [place] 9:53 AM [facility] REPOSITORY * * *Final Report* * * [...] Osteoporosis Less than or equal to -2.5 Top Lift Cutter: SALINAS Transcribe Date/Time: Jul 20 2018 1:17P Dictated by : ELLA FRY DO This examination was interpreted and the report reviewed and electronically signed by: ELLA FRY DO on Jul 23 2018 2:40PM EST [id number] PROGRESS Observed: 07/20/2018 Status: COMPLETED Source: [place] 9:22 AM [facility] REPOSITORY HNO ID: [id number] Author: River Og) Guadalupe Woodard Service: (none) Author Type: Bomb Loader Type: Progress Notes Filed: 07/20/2018 9:40 AM Note Text: Radiology Service Progress Note PATIENT NAME: Luz Baca DATE OF SERVICE: July 20, 2018 TIME: 9:22 AM PATIENT IDENTITY VERIFICATION COMPLETED USING TWO (2) METHODS: Patient confirmed name verbally and Date of . PATIENT GENDER DATA: Female. status: : No status: NO. PATIENT RELEVANT IMPLANT DATA REVIEWED: Not Applicable RADIOLOGY DEPARTMENT: [facility] bone density PERIPHERAL IV DATA: Not applicable SIGNED BY: RT Willow July 20, 2018 9:22 AM PROGRESS Observed: 07/18/2018 Status: COMPLETED Source: [place] 10:45 AM [facility] REPOSITORY HNO ID: [id number] Author: Jameson Adasm) Koffi Service: (none) Author Type: Physician Type: Progress Notes Filed: 07/18/2018 10:45 AM Note Text: Reviewed. PROGRESS Observed: 07/15/2018 Status: COMPLETED Source: [place] 10:04 AM [facility] REPOSITORY HNO ID: [id number] Author: Remi Briseno) Brent Service: (none) Author Type: Registered Nurse Type: Progress Notes Filed: 07/15/2018 4:52 PM Note Text: PRIMARY CARE COORDINATION FOLLOW-UP NOTE Provider Action/FYI TC to Bette at [facility] left message for nurse regarding all information below with PCP and Anahi at [facility]. Patient identified by name and date of . YES Spoke to Anahi VALADEZ at [facility] and Bette at [facility] Summary: TC from ALLYSON Christian at [facility] states pt's BP has been low ever since her Imdur was increased. [facility] RN spoke to Dr. Ervin, Employee Relations Director at [facility] and he recommended decreasing Imdur but RN told MD cardiology can't decrease Imdur because of pt's unstable angina. RN at [facility] cannot take off any less fluid or patient has fluid overload. RN has been doing quite a bit of instruction on pt's fluid restriction. Since patient is following fluid restriction more at home she is having less weight gain between dialysis sessions and RN doesn't have to take as much fluid off at dialysis. TC to [facility] Dialysis, left message for nurse to call PCC regarding low BP and fluid amt removed during dialysis. Received fax from [facility] stating pt reports low BP, no dizziness or falls. RN left message with dialysis regarding clarification of fluid restriction. BP ranged 104/56 to 136/54. Highest diastolic was 70. Asking if PCP would like to make changes to medications or orders? Hotshot Superintendent plan for next outreach: Will follow up 2 weeks Signature Remi Kennedy RN July 15, 2018 ELÍASTOUTRMASSIMOCH Observed: 07/15/2018 Status: COMPLETED Source: [place] 12:00 AM [facility] REPOSITORY Patient Outreach (FAMPWS) LUZ BACA ([id number]) 1940 F Date Time Provider Department 07/15/18 REMI KENNEDY (RN) FAMWS During your visit today, we recorded the following information about you: Remi Kennedy RN 07/15/2018 4:52 PM Signed PRIMARY CARE COORDINATION FOLLOW-UP NOTE Provider Action/FYI TC to Bette at [facility] left message for nurse regarding all information below with PCP and Anahi at [facility]. Patient identified by name and date of . YES Spoke to Anahi VALADEZ at [facility] and Bette at [facility] Summary: TC from [facility] Christian at [facility] states pt's BP has been low ever since her Imdur was increased. [facility] RN spoke to Dr. Ervin, Employee Relations Director at [facility] and he recommended decreasing Imdur but RN told cardiology can't decrease Imdur because of pt's unstable angina. RN at [facility] cannot take off any less fluid or patient has fluid overload. RN has been doing quite a bit of instruction on pt's fluid restriction. Since patient is following fluid restriction more at home she is having less weight gain between dialysis sessions and RN doesn't have to take as much fluid off at dialysis. TC to [facility], left message for nurse to call PCC regarding low BP and fluid amt removed during dialysis. Received fax from [facility] stating pt reports low BP, no dizziness or falls. RN left message with dialysis regarding clarification of fluid restriction. BP ranged 104/56 to 136/54. Highest diastolic was 70. Asking if PCP would like to make changes to medications or orders? Hotshot Superintendent plan for next outreach: Will follow up [...] Eaton - Fully Assessed Reason for Visit: [employer] Chronic Care [2041] Prescriptions as of 07/15/2018 Sig: CARVEDILOL 3.125 [...] 01/23/2018 Priority: I More... SVT (supraventricular tachycardia) ([facility]) [I47.1] 01/21/2018 More... Carotid artery disease (HCC) [...] PT ED Observed: 07/12/2018 Status: COMPLETED Source: [place] 5:28 PM [facility] OTHER CAMPUS REPOSITORY O ID: [id number] Author: Aleisha (Rn) ALLYSON Eaton Service: Nursing [...] Signed By: Aleisha Eaton RN In Department: [facility] SURGERY ANES POST Observed: 07/12/2018 Status: COMPLETED Source: [place] 4:21 PM [facility] OTHER [place] REPOSITORY HNO ID: [id number] Author: Basim Perdomo MD Service: Anesthesiology Author [...] 12, 2018 TIME: 4:21 PM PAGER/CONTACT #: NURSING PROG Observed: 07/12/2018 Status: COMPLETED Source: [place] 4:05 PM [facility] REPOSITORY HNO ID: [id number] Author: Aleisha Briseno) ALLYSON Eaton Service: Nursing Author Type: Registered Nurse Type: Nursing Progress Note Filed: 07/12/2018 6:29 PM Note Text: Nursing Progress Note Patient Name: Luz Baca Patient Location: [facility] 1542 Pt received in PACU on cart from OR. CR monitor applied and strip obtained. + thrill and bruit to right upper arm fistula. Pt denies pain. This note was completed by: Aleisha Eaton, RN [id number] Pt given orange juice for FSBS 70. [...] OP NOT Observed: 07/12/2018 Status: COMPLETED Source: [place] 3:49 PM [facility] OTHER CAMPUS REPOSITORY O ID: [id number] Author: Michael Hogan Service: Vascular Surgery Author Type: Physician Type: Brief Op Note Filed: 07/12/2018 3:50 PM Note Text: BRIEF OP NOTE LOG ID: [id number] Surgery/Procedure Date: 07/12/2018 Incision/Procedure Start Time: 1:22 PM Incision Close/Procedure End Time: 3:24 PM Surgeon(s)/Proceduralist(s) and Tester Electronic Scale(s): Surgeon(s) and Role: * Michael Hogan - Primary Pat Scott Procedure(s): Creation of right upper extremity brachiocephalic arteriovenous fistula Anesthesia: General Findings: cephalic vein 3mm in diameter Estimated Blood Loss: minimal Specimens: none Complications: None Pre-Op/Pre-Procedure Diagnosis: ESRD on dialysis Post-Op/Post-Procedure Diagnosis: ESRD on dialysis SIGNATURE: Michael Hogan DO PATIENT NAME: Luz Baca DATE: July 12, 2018 TIME: 3:49 PM PAGER/CONTACT #: [id number] NURSING PROG Observed: 07/12/2018 Status: COMPLETED Source: [place] 11:37 AM [facility] REPOSITORY HNO ID: [id number] Author: Octavia OsheaRn) ALLYSON Lovell Service: Nursing Author Type: Registered Nurse Type: Nursing Progress Note Filed: 07/12/2018 12:19 PM Note Text: 1130 Dr perdomo updated on fsbs of 70 Pt awake, alert and oriented without complaints Skin warm and dry 1135 Dextrose 50% 25ml iv Family at bedside 1210 fsbs 104 POTASSIUM Collected: 07/12/2018 Status: F Source: [place] 11:07 AM [facility] REPOSITORY TYPE CODE TESTS RESULT OUT OF REFERENCE UNITS RANGE LAB K 3.7-5.1 mmol/L High Potassium 5.3 Result Comment: Results may be falsely increased due to interference by hemolysis. Suggest reorder as clinically indicated. Performed By: #### K1 #### [facility] [address] [place] [address] PT ED Observed: 07/12/2018 Status: COMPLETED Source: [place] 10:48 AM [facility] REPOSITORY HNO ID: [id number] Author: Octavia OsheaRn) ALLYSON Lovell Service: Nursing [...] Signed By: Octavia Lovell RN In Department: [facility] SURGERY ANES PREOP Observed: 07/12/2018 Status: COMPLETED Source: [place] 10:46 AM [facility] REPOSITORY HNO ID: [id number] Author: Basim Perdomo MD Service: Anesthesiology Author [...] Hypertension Hyperlipidemia Copd (Chronic Obstructive Pulmonary Disease) ([facility]) Sleep Apnea Gerd (Gastroesophageal Reflux Disease) Arthritis Depression Atrial Fibrillation ([facility]) 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 Seeing Dr. Cardona - Cardiac defibrillator in place - Cardiomegaly - Carotid artery disease ([facility]) left - Chronic hypoxemic respiratory failure ([facility]) 07/01/2018 - Chronic kidney disease (CKD) stage G3b/A2, moderately decreased glomerular filtration rate (GFR) between 30-44 mL/min/1.73 square meter and albuminuria creatinine ratio between 30-299 mg/g ([facility]) Dr. Martin - COPD (chronic obstructive pulmonary disease) ([facility]) Dr. Cruz - Depression - Diabetes ([facility]) - Diabetic neuropathy ([facility]) - Edema - ESRD (end stage renal disease) on dialysis ([facility]) [facility], Dr. Martin - GERD (gastroesophageal reflux disease) - Gout with hyperuricemia - HH (hiatus hernia) - HOCM (hypertrophic obstructive cardiomyopathy) ([facility]) S/P Septal Myectomy in 2003. Now with LVEF 50% and mod/severe pulm HTN. - HTN (hypertension) - Hyperlipidemia - Morbid obesity with BMI of 40.0-44.9, adult (HCC) - Presence of combination internal cardiac defibrillator (ICD) and pacemaker - Sleep apnea 2011 not on CPAP, unable to tolerate mask 02/2017 - SVT (supraventricular tachycardia) ([facility]) NSVT and questionable VT in 2003 post [...] age 89, HTN - Heart Failure Mother PA - Cancer Father age 71, lung cancer [...] July 12, 2018 TIME: 10:46 AM CSN: [id number] OPERATIVE NO Observed: 07/12/2018 Status: COMPLETED Source: [place] 12:00 AM [facility] OTHER CAMPUS REPOSITORY O ID: [id number] Author: Michael Hogan Service: Vascular Surgery Author Type: Physician Type: Operative Report Filed: 07/26/2018 9:59 AM Note Text: [facility] - Operative Report LUZ BACA : 1940 AGE: 77. SEX: F PATIENT TYPE: A HOSP SVC: JOURDAN LOCATION: [facility] ATTENDING PHYSICIAN: BERNARD NUMBER: [id number] DATE OF SURGERY/PROCEDURE: 07/12/2018 INCISION/PROCEDURE START TIME: 13:22. INCISION CLOSE/PROCEDURE END TIME: 15:24. PREOPERATIVE DIAGNOSIS: End-stage renal disease, on dialysis, need for dialysis access. POSTOPERATIVE DIAGNOSIS: End-stage renal disease, on dialysis, need for dialysis access. SURGEON: Michael Hogan D.O. CLIMATOLOGY TEACHER: Pat Caal. SURGERY/PROCEDURE: Creation of right upper [...] end of the case. Michael Hogan D.O. [id number] /[id number] CTA ABD/PEL/LOWER EXT W Observed: 07/07/2018 Status: F Source: [place] IVCON 10:05 AM [facility] OTHER CAMPUS REPOSITORY * * *Final Report* * * DATE OF EXAM: Jul 07 2018 10:05AM [facility] [place] - CTA ABD/PEL/LOWER EXT W IVCON [...] (> 70 %) stenosis (series 4 image [id number]). Right anterior tibial artery is widely patent [...] Two vessels runoff throughout the left leg. Top Lift Cutter: PSCB Transcribe Date/Time: Jul 07 2018 10:39A Dictated by : KERRI MERCADO MD This examination was interpreted and the report reviewed and electronically signed by: KERRI MERCADO MD on Jul 07 2018 12:28PM EST [id number] CT 3D POST PROCESSING Observed: 07/07/2018 Status: F Source: READ[place] 10:03 AM [facility] OTHER CAMPUS REPOSITORY * * *Final Report* * * DATE OF EXAM: Jul 07 2018 10:03AM [facility] [place] 3D POST PROCESSING / [...] (> 70 %) stenosis (series 4 image [id number]). Right anterior tibial artery is widely patent [...] Two vessels runoff throughout the left leg. Top Lift Cutter: PSCB Transcribe Date/Time: Jul 07 2018 10:39A Dictated by : KERRI MERCADO MD This examination was interpreted and the report reviewed and electronically signed by: KERRI MERCADO MD on Jul 07 2018 12:28PM EST [id number] NURSING PROG Observed: 07/05/2018 Status: COMPLETED Source: READING 2:01 PM CLINIC OTHER CAMPUS REPOSITORY HNO ID: [id number] Author: Dilma (Rn) ALLYSON Head Service: Nursing [...] Device:Pacer/Defib, Comment: Last interrogation 06/02/18, scanned in [facility] 06/08/18. Implant 2017 for SSS, Mode VVIR, battery life 5yrs ,8mos. Cath 05/13/18- scanned in [facility] Echo 05/11/18 , scanned in [facility], EF 55%, Severe PHTN -RVSP- 77, right [...] PM PROGRESS Observed: 07/05/2018 Status: COMPLETED Source: [place] 12:53 PM [facility] MAIN CAMPUS REPOSITORY O ID: [id number] Author: Jameson Adams) Koffi Service: (none) Author [...] Diagnosis Date - Arthritis - Atrial fibrillation ([facility]) - CAD (coronary artery disease) stents x9, defibrillator, CABG. Seeing Dr. Cardona - Cardiac defibrillator in place - Cardiomegaly - Carotid artery disease (HCC) left - Chronic hypoxemic respiratory failure ([facility]) 07/01/2018 - Chronic kidney disease (CKD) stage G3b/A2, moderately decreased glomerular filtration rate (GFR) between 30-44 mL/min/1.73 square meter and albuminuria creatinine ratio between 30-299 mg/g ([facility]) Dr. Martin - COPD (chronic obstructive pulmonary disease) ([facility]) Dr. Olbrych - Depression - Diabetes ([facility]) - Diabetic neuropathy ([facility]) - Edema - ESRD (end stage renal disease) on dialysis ([facility]) [place], Dr. Martin - GERD (gastroesophageal reflux disease) - Gout with hyperuricemia - HH (hiatus hernia) - HOCM (hypertrophic obstructive cardiomyopathy) ([facility]) S/P Septal Myectomy in 2003. Now with LVEF 50% and mod/severe pulm HTN. - HTN (hypertension) - Hyperlipidemia - Morbid obesity with BMI of 40.0-44.9, adult ([facility]) - Sleep apnea 2011 not on CPAP, unable to tolerate mask 02/2017 - SVT (supraventricular tachycardia) ([facility]) NSVT and questionable VT in 2003 post [...] age 89, HTN - Heart Failure Mother PA - Cancer Father age 71, lung cancer [...] 0.400 - 5.500 uU/mL 2.110 2.080 Creatinine, [place] 0.7 - 1.4 mg/dL 3.6 (H) ASSESSMENT/PLAN: 1. Uncontrolled type 2 diabetes mellitus with stage 3 chronic kidney disease, with long-term current use of insulin ([facility]) - ICD9: 250.52, 585.3, V58.67, ICD10: E11.22, E11.65, N18.3, Z79.4 (primary diagnosis) improved control - Continue current medications - Blood glucose monitoring on a twice a day schedule - Ophthalmology referral for eval/management of diabetic eye changes - Encouraged regular aerobic exercise and weight loss - Daily Asprin therapy recommended - HGB A1C 2. Atrial fibrillation, unspecified type ([facility]) - ICD9: 427.31, ICD10: I48.91 Rate controlled. Continue current regimen. Follow up with cardiology. 3. Coronary artery disease, angina presence unspecified, unspecified vessel or lesion type, unspecified whether prairie band or transplanted heart - ICD9: 414.00, ICD10: I25.10 Symptoms present for 3 weeks. Continue nitro PRN for chest pain symptoms. Continue Imdur. Follow up with cardiology. 4. Chronic obstructive pulmonary disease, unspecified COPD type ([facility]) - ICD9: 496, ICD10: J44.9 Severe COPD. [...] - DXA-AXIAL SKELETON 8. ESRD on dialysis ([facility]) - ICD9: 585.6, V45.11, ICD10: N18.6, Z99.2 Continue dialysis MWF. Jameson Kamara MD CNOV Observed: 07/05/2018 Status: COMPLETED Source: [place] 12:20 PM [facility] [place] REPOSITORY Office Visit (FAMPWS) LUZ BACA ([id number]) 1940 F Date Time Provider Department 07/05/18 12:20 PM [facility]ARA[facility] During your visit today, we recorded the [...] Diagnosis Date - Arthritis - Atrial fibrillation ([facility]) - CAD (coronary artery disease) stents x9, defibrillator, CABG. Seeing Dr. Cardona - Cardiac defibrillator in place - Cardiomegaly - Carotid artery disease ([facility]) left - Chronic hypoxemic respiratory failure ([facility]) 07/01/2018 - Chronic kidney disease (CKD) stage G3b/A2, moderately decreased glomerular filtration rate (GFR) between 30-44 mL/min/1.73 square meter and albuminuria creatinine ratio between 30-299 mg/g ([facility]) Dr. Martin - COPD (chronic obstructive pulmonary disease) ([facility]) Dr. Cruz - Depression - Diabetes ([facility]) - Diabetic neuropathy ([facility]) - Edema - ESRD (end stage renal disease) on dialysis ([facility]) [facility], Dr. Martin - GERD (gastroesophageal reflux disease) - Gout with hyperuricemia - HH (hiatus hernia) - HOCM (hypertrophic obstructive cardiomyopathy) ([facility]) S/P Septal Myectomy in 2003. Now with LVEF 50% and mod/severe pulm HTN. - HTN (hypertension) - Hyperlipidemia - Morbid obesity with BMI of 40.0-44.9, adult ([facility]) - Sleep apnea 2011 not on CPAP, unable to tolerate mask 02/2017 - SVT (supraventricular tachycardia) ([facility]) NSVT and questionable VT in 2003 post [...] age 89, HTN - Heart Failure Mother PA - Cancer Father age 71, lung cancer [...] 0.400 - 5.500 uU/mL 2.110 2.080 Creatinine, [place] 0.7 - 1.4 mg/dL 3.6 (H) ASSESSMENT/PLAN: [...] unspecified vessel or lesion type, unspecified whether prairie band or transplanted heart - ICD9: 414.00, ICD10: [...] usual activities immediately. Referring Provider: JAMESON KAMARA) [[id number]] Allergies As of Date: 07/05/2018 Noted Allergy [...] with long- term current use of insulin ([facility]) [E11.22, E11.65, N18.3, Z79.4] Other Visit Diagnoses:Atrial fibrillation, unspecified type ([facility]) [I48.91] Coronary artery disease, angina presence unspecified, unspecified vessel or lesion type, unspecified whether prairie band or transplanted heart [I25.10] Chronic obstructive pulmonary disease, unspecified COPD type ([facility]) [J44.9] Hypertension [I10] Gastroesophageal reflux disease, esophagitis presence not specified [K21.9] Asymptomatic postmenopausal status [Z78.0] ESRD on dialysis ([facility]) [N18.6, Z99.2] Order(s):DXA-AXIAL SKELETON [[id number]] Order #: [id number] FUTURE HGB A1C [RWIXG3M] Order #: [id number] FUTURE Prescriptions as of 07/05/2018 Sig: BACITRACIN [...] 07/05/18 CREATININE Collected: 06/30/2018 Status: F Source: READING 9:45 AM [facility] REPOSITORY TYPE CODE TESTS RESULT OUT [...] actual GFR. Performed By: #### CRET1 #### [facility] [address] [place] [address] ALT Collected: 06/30/2018 Status: F Source: READING 9:45 AM [facility] REPOSITORY TYPE CODE TESTS RESULT OUT OF RANGE REFERENCE UNITS LAB ALT 7-38 U/L ALT 16 Performed By: #### ALT #### [facility] [address] [facility] [phone] #### TSH #### [facility] [address] [id number] TSH Collected: 06/30/2018 Status: F Source: READING 9:45 AM [facility] REPOSITORY TYPE CODE TESTS RESULT OUT OF RANGE REFERENCE UNITS LAB TSH 0.400-5.500 uU/mL TSH 2.080 Performed By: #### ALT #### [facility] [address] [facility] [phone] #### TSH #### [facility] [address] [address] BASIC METABOLIC PANL Collected: 06/30/2018 Status: F Source: READING 9:45 AM [facility] REPOSITORY TYPE CODE TESTS RESULT OUT OF REFERENCE UNITS RANGE LAB GLU 74-99 mg/dL High Glucose 106 Result Comment: The [place] [employer] (ADA) provides guidance for cutoff [...] Standards of Medical Care in Diabetes 2016, [place] [employer]. Diabetes Care. 2016.39(Suppl 1). LAB [...] actual GFR. Performed By: #### BMP #### [facility] [address] [facility] [phone] HISTORY PHYSICAL Observed: 06/30/2018 Status: COMPLETED Source: READ[place] 8:45 AM CLINIC OTHER CAMPUS REPOSITORY O ID: [id number] Author: Cristiane Tellez (Pa) Service: (none) Author Type: Physician Tester Electronic Scale Type: HANDP Filed: 07/01/2018 11:20 AM Note [...] M,W,F since 02/2018. Most recent Cr 3.6 (8/3/18). Scheduled for AV fistula creation on 07/06. Denies recent illness, fever or chills. PAST MEDICAL HISTORY Diagnosis Date - Arthritis - Atrial fibrillation ([facility]) - CAD (coronary artery disease) stents x9, defibrillator, CABG. Seeing Dr. Cardona - Cardiac defibrillator in place - Cardiomegaly - Carotid artery disease ([facility]) left - Chronic hypoxemic respiratory failure ([facility]) 07/01/2018 - Chronic kidney disease (CKD) stage G3b/A2, moderately decreased glomerular filtration rate (GFR) between 30-44 mL/min/1.73 square meter and albuminuria creatinine ratio between 30-299 mg/g ([facility]) Dr. Martin - COPD (chronic obstructive pulmonary disease) ([facility]) Dr. Cruz - Depression - Diabetes ([facility]) - Diabetic neuropathy ([facility]) - Edema - ESRD (end stage renal disease) on dialysis ([facility]) [facility], Dr. Martin - GERD (gastroesophageal reflux disease) - Gout with hyperuricemia - HH (hiatus hernia) - HOCM (hypertrophic obstructive cardiomyopathy) ([facility]) S/P Septal Myectomy in 2003. Now with LVEF 50% and mod/severe pulm HTN. - HTN (hypertension) - Hyperlipidemia - Morbid obesity with BMI of 40.0-44.9, adult ([facility]) - Sleep apnea 2011 not on CPAP, unable to tolerate mask 02/2017 - SVT (supraventricular tachycardia) ([facility]) NSVT and questionable VT in 2003 post [...] age 89, HTN - Heart Failure Mother PA - Cancer Father age 71, lung cancer [...] No history of TIAs, stroke, headaches, tremors, QUALITY ASSURANCE ASSISTANT tumor, hemiplegia, paraplegia, quadriplegia. Respiratory: COPD, MARLA-no [...] since 02/2018. Followed by Dr. Martin in [place]; Voids very little with intermittent dysuria. No hematuria. No incontinence. RETURN TO FACTORY CLERK: Negative for abnormal vaginal bleeding, abnormal vaginal [...] Skin: ulcer on left toe-being treated by [facility]. Dr. Hogan's office aware. Pt has skin [...] Diagnosis:VENTRICULAR-PACED RHYTHM ABNORMAL ECG , reviewed by marketing account executive. Most recent Echo Most recent PM interrogation [...] 30, 2018 TIME: 8:45 AM PAGER/CONTACT #: JONA Observed: 06/30/2018 Status: COMPLETED Source: READING 12:00 AM [facility] OTHER CAMPUS REPOSITORY Telephone (PREANME) LUZ BACA ([id number]) 1940 F Date Time Provider Department 06/30/18 [...] Her last visit with you was on 8/7. FYI upon arrival to [facility] appt her pulse [...] More... Encounter Status:Closed by CRISTIANE TELLEZ PA-C 07/01/18 PROGRESS Observed: 06/28/2018 Status: COMPLETED Source: READING 11:07 AM [facility] REPOSITORY HNO ID: [id number] Author: Jose C Rodriguez Service: (none) Author Type: Physician Type: Progress Notes Filed: 06/28/2018 11:33 AM Note Text: ? Jose C Rodriguez DPM Department of Podiatry [address] [facility] [address] Dept: [phone] Dept 06/28/2018 Follow Up Podiatric Office Visit: [...] Diagnosis Date - Arthritis - Atrial fibrillation ([facility]) - CAD (coronary artery disease) stents x9, defibrillator, CABG. Seeing Dr. Cardona - Cardiac defibrillator in place - Cardiomegaly - Carotid artery disease ([facility]) left - Chronic kidney disease (CKD) stage G3b/A2, moderately decreased glomerular filtration rate (GFR) between 30-44 mL/min/1.73 square meter and albuminuria creatinine ratio between 30-299 mg/g ([facility]) Dr. Martin - COPD (chronic obstructive pulmonary disease) ([facility]) Dr. Cruz - Depression - Diabetes ([facility]) - Diabetic neuropathy ([facility]) - Edema - ESRD (end stage renal disease) on dialysis ([facility]) [facility], Dr. Martin - GERD (gastroesophageal reflux disease) - Gout with hyperuricemia - HH (hiatus hernia) - HOCM (hypertrophic obstructive cardiomyopathy) ([facility]) S/P Septal Myectomy in 2003. Now with LVEF 50% and mod/severe pulm HTN. - HTN (hypertension) - Hyperlipidemia - Morbid obesity with BMI of 40.0-44.9, adult ([facility]) - Sleep apnea 2011 not on CPAP, unable to tolerate mask 02/2017 - SVT (supraventricular tachycardia) ([facility]) NSVT and questionable VT in 2003 post op FAMILY HISTORY Problem Relation Age of Onset - Hypertension Mother living at age 93, HTN - Heart Failure Mother PA - Cancer Father age 71, lung cancer [...] left foot, limited to breakdown of skin ([facility]) (primary encounter diagnosis) (I73.9) PAD (peripheral artery disease) ([facility]) (E11.49) Other diabetic neurological complication associated with type 2 diabetes mellitus ([facility]) PLAN: 1. History and physical examination performed. [...] DPM CNOV Observed: 06/28/2018 Status: COMPLETED Source: READ[place] 10:55 AM [facility] REPOSITORY Office Visit (PODIWS) LUZ BACA ([id number]) 1940 F Date Time Provider Department 06/28/18 10:55 AM JOSE C RODRIGUEZ During your visit today, we recorded the following information about you: Jose C Rodriguez DPM 06/28/2018 11:33 AM Signed ? Jose C Rodriguez DPM Department of Podiatry [facility] [address] [facility] [address] Dept: [phone] Dept 06/28/2018 Follow Up Podiatric Office Visit: [...] Diagnosis Date - Arthritis - Atrial fibrillation ([facility]) - CAD (coronary artery disease) stents x9, defibrillator, CABG. Seeing Dr. Cardona - Cardiac defibrillator in place - Cardiomegaly - Carotid artery disease ([facility]) left - Chronic kidney disease (CKD) stage G3b/A2, moderately decreased glomerular filtration rate (GFR) between 30-44 mL/min/1.73 square meter and albuminuria creatinine ratio between 30-299 mg/g ([facility]) Dr. Martin - COPD (chronic obstructive pulmonary disease) ([facility]) Dr. Cruz - Depression - Diabetes ([facility]) - Diabetic neuropathy ([facility]) - Edema - ESRD (end stage renal disease) on dialysis ([facility]) [facility], Dr. Martin - GERD (gastroesophageal reflux disease) - Gout with hyperuricemia - HH (hiatus hernia) - HOCM (hypertrophic obstructive cardiomyopathy) ([facility]) S/P Septal Myectomy in 2003. Now with LVEF 50% and mod/severe pulm HTN. - HTN (hypertension) - Hyperlipidemia - Morbid obesity with BMI of 40.0-44.9, adult ([facility]) - Sleep apnea 2011 not on CPAP, unable to tolerate mask 02/2017 - SVT (supraventricular tachycardia) ([facility]) NSVT and questionable VT in 2003 post op FAMILY HISTORY Problem Relation Age of Onset - Hypertension Mother living at age 93, HTN - Heart Failure Mother PA - Cancer Father age 71, lung cancer [...] left foot, limited to breakdown of skin ([facility]) (primary encounter diagnosis) (I73.9) PAD (peripheral artery disease) ([facility]) (E11.49) Other diabetic neurological complication associated with type 2 diabetes mellitus ([facility]) PLAN: 1. History and physical examination performed. [...] 4 toes. Referring Provider: JOSE C RODRIGUEZ [[id number]] Allergies As of Date: 06/28/2018 Noted Allergy [...] left foot, limited to breakdown of skin ([facility]) [L97.521] Other Visit Diagnoses:PAD (peripheral artery disease) ([facility]) [I73.9] Other diabetic neurological complication associated with type 2 diabetes mellitus ([facility]) [E11.49] Prescriptions as of 06/28/2018 Sig: CLINDAMYCIN [...] 06/28/18 PROGRESS Observed: 06/24/2018 Status: COMPLETED Source: READ[place] 4:46 PM [facility] MAIN [facility]AMPUS REPOSITORY HNO ID: [id number] Author: Katie Gonzalez RN Service: (none) Author [...] RN PROGRESS Observed: 06/24/2018 Status: COMPLETED Source: READING 4:14 PM [facility] REPOSITORY HNO ID: [id number] Author: Jose C Rodriguez Service: (none) Author Type: Physician Type: Progress Notes Filed: 06/26/2018 12:01 PM Note Text: ? Jose C Rodriguez DPM Department of Podiatry [address] [place] [address] Dept: [phone] Dept 06/24/2018 Established Podiatric Office Visit: HPI: [...] and albuminuria creatinine ratio between 30-299 mg/g ([facility]) Dr. Martin - COPD (chronic obstructive pulmonary disease) ([facility]) Dr. Cruz - Depression - Diabetes ([facility]) - Diabetic neuropathy ([facility]) - Edema - ESRD (end stage renal disease) on dialysis ([facility]) MWF, Dr. Martin - GERD (gastroesophageal reflux disease) - Gout with hyperuricemia - HH (hiatus hernia) - HOCM (hypertrophic obstructive cardiomyopathy) ([facility]) S/P Septal Myectomy in 2003. Now with LVEF 50% and mod/severe pulm HTN. - HTN (hypertension) - Hyperlipidemia - Morbid obesity with BMI of 40.0-44.9, adult ([facility]) - Sleep apnea 2011 not on CPAP, unable to tolerate mask 02/2017 - SVT (supraventricular tachycardia) ([facility]) NSVT and questionable VT in 2003 post [...] age 89, HTN - Heart Failure Mother PA - Cancer Father age 71, lung cancer [...] left foot, limited to breakdown of skin ([facility]) (primary encounter diagnosis) (I73.9) PAD (peripheral artery disease) ([facility]) PLAN: 1. History and physical examination performed. [...] Past Histories independently gathered by the clinical system support administrator and the remaining scribed note accurately describes my personal service to the patient. Jose C Rodriguez DPM CNOV Observed: 06/24/2018 Status: COMPLETED Source: READING 4:10 PM [facility] REPOSITORY Office Visit (PODIWS) LUZ BACA ([id number]) 1940 F Date Time Provider Department 06/24/18 4:10 PM JOSE C RODRIGUEZS During your visit today, we recorded the following information about you: Jose C Rodriguez DPM 06/26/2018 12:01 PM Signed ? Jose C Rodriguez DPM Department of Podiatry [address] [facility] [address] Dept: [phone] Dept 06/24/2018 Established Podiatric Office Visit: HPI: [...] Diagnosis Date - Arthritis - Atrial fibrillation ([facility]) - CAD (coronary artery disease) stents x9, defibrillator, CABG. Seeing Dr. Cardona - Cardiac defibrillator in place - Cardiomegaly - Carotid artery disease ([facility]) left - Chronic kidney disease (CKD) stage G3b/A2, moderately decreased glomerular filtration rate (GFR) between 30-44 mL/min/1.73 square meter and albuminuria creatinine ratio between 30-299 mg/g ([facility]) Dr. Martin - COPD (chronic obstructive pulmonary disease) ([facility]) Dr. Cruz - Depression - Diabetes ([facility]) - Diabetic neuropathy ([facility]) - Edema - ESRD (end stage renal disease) on dialysis ([facility]) [facility], Dr. Martin - GERD (gastroesophageal reflux disease) - Gout with hyperuricemia - HH (hiatus hernia) - HOCM (hypertrophic obstructive cardiomyopathy) ([facility]) S/P Septal Myectomy in 2003. Now with LVEF 50% and mod/severe pulm HTN. - HTN (hypertension) - Hyperlipidemia - Morbid obesity with BMI of 40.0-44.9, adult ([facility]) - Sleep apnea 2011 not on CPAP, unable to tolerate mask 02/2017 - SVT (supraventricular tachycardia) ([facility]) NSVT and questionable VT in 2003 post [...] age 89, HTN - Heart Failure Mother PA - Cancer Father age 71, lung cancer [...] left foot, limited to breakdown of skin (HCC) (primary encounter diagnosis) (I73.9) PAD (peripheral artery disease) ([facility]) PLAN: 1. History and physical examination performed. [...] Past Histories independently gathered by the clinical system support administrator and the remaining scribed note accurately describes [...] Gonzalez RN Referring Provider: JOSE C RODRIGUEZ [[id number]] Allergies As of Date: 06/24/2018 Noted Allergy [...] left foot, limited to breakdown of skin ([facility]) [L97.521] Other Visit Diagnosis:PAD (peripheral artery disease) ([facility]) [I73.9] Order(s):XR FOOT GENERAL 3V AP/LAT/OBL LT [[id number]] Order #: [id number] FUTURE Prescriptions as of 06/24/2018 Sig: CLINDAMYCIN [...] 06/26/18 PROGRESS Observed: 06/24/2018 Status: COMPLETED Source: [place] 11:56 AM [facility] REPOSITORY HNO ID: [id number] Author: Jameson Adams) Koffi Service: (none) Author Type: Physician Type: Progress Notes Filed: 06/24/2018 11:56 AM Note Text: Reviewed and agree. PROGRESS Observed: 06/24/2018 Status: COMPLETED Source: READING 9:54 AM [facility] REPOSITORY HNO ID: [id number] Author: Remi Briseno) Brent Service: (none) Author Type: Registered Nurse Type: Progress Notes Filed: 06/24/2018 12:37 PM Note Text: PRIMARY CARE COORDINATION FOLLOW-UP NOTE Provider Action/FYI Recommended dgt speak to [facility] re: dental care and extraction States [...] for dental extractions. Recommended to speak to [facility] because they have dentists there that do many procedures, including extractions, verbalized agreement. Hotshot Superintendent plan for next outreach: Will follow up 2 weeks Signature Remi Kennedy RN June 24, 2018 LUDA Observed: 06/24/2018 Status: COMPLETED Source: READING 12:00 AM [facility] REPOSITORY Patient Outreach (FAMPWS) KEVENLUZ Salvador ([id number]) 1940 F Date Time Provider Department 06/24/18 REMI KENNEDY (RN) FAMPWS During your visit today, we recorded the following information about you: Remi Kennedy RN 06/24/2018 12:37 PM Signed PRIMARY CARE COORDINATION FOLLOW-UP NOTE Provider Action/FYI Recommended dgt speak to [facility] re: dental care and extraction States [...] for dental extractions. Recommended to speak to [facility] because they have dentists there that do many procedures, including extractions, verbalized agreement. Hotshot Superintendent plan for next outreach: Will follow up [...] Ma - Fully Assessed Reason for Visit: [employer] Chronic Care [[id number]] Prescriptions as of 06/24/2018 Sig: CLINDAMYCIN HCL [...] Z99.2] INVALID FOR* More... Encounter Status:Closed by BRENTREMI on 06/24/18 XR HIP 3V PELV+ Observed: 06/23/2018 Status: F Source: [place] AP/LAT RT 12:29 PM [facility] REPOSITORY * * *Final Report* * * DATE OF EXAM: Jun 23 2018 12:29PM WOX [id number] - XR HIP 3V PELV+ AP/LAT RT / PROCEDURE REASON: Pain in right hip * * * * Physician Interpretation * * * * EXAM:XR HIP 3V PELV+ AP/LAT RT HISTORY: Pain in right hip COMPARISON:None IMPRESSION: There are [id number] degenerative changes in bilateral hip joints. Sacroiliac joints are maintained. There is no fracture or destructive lesion. There is diffuse demineralization. There are extensive vascular calcifications. Top Lift Cutter: PSCB Transcribe Date/Time: Jun 23 2018 2:52P Dictated by : MARIO ALBERTO RANGEL MD This examination was interpreted and the report reviewed and electronically signed by: MARIO ALBERTO RANGEL MD on Jun 23 2018 2:53PM EST [id number] PROGRESS Observed: 06/23/2018 Status: COMPLETED Source: READING 12:16 PM [facility] REPOSITORY HNO ID: [id number] Author: Yi Cox Service: (none) Author Type: [...] PM CNOV Observed: 06/23/2018 Status: COMPLETED Source: READING 11:40 AM [facility] REPOSITORY Office Visit (FAMPWS) LUZ BACA ([id number]) 1940 F Date Time Provider Department 06/23/18 [...] dental abscess for recent tooth pain per [facility]. Patient with ulceration of left toes found over the last few days, not wearing her diabetic shoes, in [facility] today. Denies new injury to feet, thinks [...] and albuminuria creatinine ratio between 30-299 mg/g ([facility]) Dr. Martin - COPD (chronic obstructive pulmonary disease) ([facility]) Dr. Cruz - Depression - Diabetes ([facility]) - Diabetic neuropathy ([facility]) - Edema - ESRD (end stage renal disease) on dialysis ([facility]) MW, Dr. Martin - GERD (gastroesophageal reflux disease) - Gout with hyperuricemia - HH (hiatus hernia) - HOCM (hypertrophic obstructive cardiomyopathy) ([facility]) S/P Septal Myectomy in 2003. Now with LVEF 50% and mod/severe pulm HTN. - HTN (hypertension) - Hyperlipidemia - Morbid obesity with BMI of 40.0-44.9, adult ([facility]) - Sleep apnea 2011 not on CPAP, unable to tolerate mask 02/2017 - SVT (supraventricular tachycardia) ([facility]) NSVT and questionable VT in 2003 post [...] age 89, HTN - Heart Failure Mother PA - Cancer Father age 71, lung cancer [...] 0 XR HIP GENERAL 3V PELV/AP/LAT RT [[id number]] Order #: [id number] FUTURE Prescriptions as of 06/23/2018 Sig: CLINDAMYCIN [...] 01/23/2018 Priority: I More... SVT (supraventricular tachycardia) ([facility]) [I47.1] 01/21/2018 More... Carotid artery disease (HCC) [...] 06/23/18 PROGRESS Observed: 06/23/2018 Status: COMPLETED Source: READING 11:31 AM [facility] REPOSITORY [facility] ID: [id number] Author: Jameson Adams) Koffi Service: (none) Author [...] dental abscess for recent tooth pain per [facility]. Patient with ulceration of left toes found over the last few days, not wearing her diabetic shoes, in [place] today. Denies new injury to feet, thinks [...] place - Cardiomegaly - Carotid artery disease ([facility]) left - Chronic kidney disease (CKD) stage G3b/A2, moderately decreased glomerular filtration rate (GFR) between 30-44 mL/min/1.73 square meter and albuminuria creatinine ratio between 30-299 mg/g ([facility]) Dr. Martin - COPD (chronic obstructive pulmonary disease) ([facility]) Dr. Cruz - Depression - Diabetes ([facility]) - Diabetic neuropathy ([facility]) - Edema - ESRD (end stage renal disease) on dialysis ([facility]) MWF, Dr. Martin - GERD (gastroesophageal reflux disease) - Gout with hyperuricemia - HH (hiatus hernia) - HOCM (hypertrophic obstructive cardiomyopathy) ([facility]) S/P Septal Myectomy in 2003. Now with LVEF 50% and mod/severe pulm HTN. - HTN (hypertension) - Hyperlipidemia - Morbid obesity with BMI of 40.0-44.9, adult ([facility]) - Sleep apnea 2011 not on CPAP, unable to tolerate mask 02/2017 - SVT (supraventricular tachycardia) ([facility]) NSVT and questionable VT in 2003 post [...] age 89, HTN - Heart Failure Mother PA - Cancer Father age 71, lung cancer [...] MD PROGRESS Observed: 06/22/2018 Status: COMPLETED Source: READING 11:06 AM [facility] REPOSITORY HNO ID: [id number] Author: Jameson Adams) Koffi Service: (none) Author Type: Physician Type: Progress Notes Filed: 06/22/2018 11:06 AM Note Text: Reviewed. PROGRESS Observed: 06/17/2018 Status: COMPLETED Source: READING 2:58 PM [facility] REPOSITORY HNO ID: [id number] Author: Remi Briseno) Brent Service: (none) Author [...] one oral surgeon and he operates at [facility] Left message for [facility] Dentistry financial counselor to ask if Medicare [...] Kennedy RN June 17, 2018 2:33 PM Hotshot Superintendent plan for next outreach: Will follow up tomorrow Signature Remi Kennedy RN June 17, 2018 CNPTOUTREACH Observed: 06/17/2018 Status: COMPLETED Source: READING 12:00 AM [facility] REPOSITORY Patient Outreach (FAMPWS) KEVENLUZ ([id number]) 1940 F Date Time Provider Department 06/17/18 [facility] your visit today, we recorded [...] one oral surgeon and he operates at [facility] Left message for [facility] Dentistry financial counselor to ask if Medicare [...] Kennedy RN June 17, 2018 2:33 PM Hotshot Superintendent plan for next outreach: Will follow up [...] Ct - Fully Assessed Reason for Visit: [employer] Chronic Care [3612] Reason For Visit History [...] 01/23/2018 Priority: I More... SVT (supraventricular tachycardia) ([facility]) [I47.1] 01/21/2018 More... Carotid artery disease ([facility]) [I77.9] 01/22/2018 CAD (coronary artery disease) [I25.10] [...] 06/23/18 PROGRESS Observed: 06/16/2018 Status: COMPLETED Source: READING 4:35 PM [facility] [place] REPOSITORY HNO ID: [id number] Author: Tiffani Lowe Service: (none) Author Type: [...] WALI CREATININE Collected: 06/16/2018 Status: F Source: READING 3:44 PM [facility] [place] REPOSITORY TYPE CODE TESTS RESULT OUT OF REFERENCE UNITS RANGE LAB WCRET 0.7-1.4 mg/dL [place] High Creatinine 3.6 Result Comment: Result checked and verified PROGRESS Observed: 06/16/2018 Status: COMPLETED Source: READING 2:07 PM [facility] REPOSITORY HNO ID: [id number] Author: Donnell Cruz Service: (none) Author Type: Physician Type: Progress Notes Filed: 06/16/2018 3:24 PM Note Text: [facility] [place], 06/16/2018: INTERVAL HISTORY: Since 02/2018 Pulmonary clinic visit, admitted to [facility] 05/19/18 with several days of chest pain [...] in arm by Michael Hogan MD at [facility] 07/06/2019. Dialyzed thrice weekly via catheter Dr. [...] and albuminuria creatinine ratio between 30-299 mg/g ([facility]) Dr. Martin - COPD (chronic obstructive pulmonary disease) ([facility]) Dr. Cruz - Depression - Diabetes ([facility]) - Diabetic neuropathy ([facility]) - Edema - ESRD (end stage renal disease) on dialysis ([facility]) MW, Dr. Martin - GERD (gastroesophageal reflux disease) - Gout with hyperuricemia - HH (hiatus hernia) - HOCM (hypertrophic obstructive cardiomyopathy) ([facility]) S/P Septal Myectomy in 2003. Now with LVEF 50% and mod/severe pulm HTN. - HTN (hypertension) - Hyperlipidemia - Morbid obesity with BMI of 40.0-44.9, adult (HCC) - Sleep apnea 2011 not on CPAP, unable to tolerate mask 02/2017 - SVT (supraventricular tachycardia) ([facility]) NSVT and questionable VT in 2003 post [...] age 89, HTN - Heart Failure Mother PA - Cancer Father age 71, lung cancer [...] strength symmetrical. No tremor. DATA REVIEW: Echocardiogram, [facility], 05/12/2018: LV: Mild concentric LVH. D-shaped septum [...] appears to be in atrial fibrillation. CTA chest,[facility], 05/19/2018: Impression: No demonstrated pulmonary embolism or [...] independently reviewed these CTA Chest images on [facility], and I concur with the [...] ? ? ? 75 ?74 ? 79 YBP906% ? ?Sec ? ?7.87 ? 6.09 ?-23 Lung Volumes TLC ?Liters ? ? ?5.67 ?3.07 ?54 RV ? Liters ? ? ?2.51 ?1.74 ?69 RV/TLC ? ? % ? 46 ?57 Diffusing Capacity DLCO ? ? ? 21.5 ?8.3 ? 38 DLCO/VA ? ? 4.01 ? ? ? 4.03 ?101 IMPRESSION AND RECOMMENDATIONS: 1. Recent [facility] CT chest without pulmonary embolism, pneumonia, lung [...] consultation is available from me and/or my [facility] [place] colleagues at [facility] if needed at the discretion of the surgeon. I addressed the questions of the patient and her daughter, and they expressed understanding and acceptance of my answers. Donnell Cruz MD, [facility] [place] [facility] [address] [place] [address] P: [phone] F: [phone] [email or web address] CNOV Observed: 06/16/2018 Status: COMPLETED Source: READING 1:30 PM [facility] REPOSITORY Office Visit (PULMWS) LUZ BACA ([id number]) 1940 F Date Time Provider Department 06/16/18 1:30 PM DONNELL CRUZ During your visit today, we recorded the [...] denies diarrhea- c/o abdominal cramping and constipation Uro/RETURN TO FACTORY CLERK: denies dysuria. denies hesitancy. denies nocturia. Menses: post menopausal Musculoskeletal: chronic lower extremity pain. Neuro: denies headache, denies focal weakness. denies tremor. Skin: lower extremity discoloration bilaterally. Otherwise negative. Reviewed with patient, confirmed as documented by Michael Brown LPN. TO Donnell Cruz MD 06/16/2018 3:24 PM Signed [facility] [place], 06/16/2018: INTERVAL HISTORY: Since 02/2018 Pulmonary clinic visit, admitted to [facility] 05/19/18 with several days of chest pain [...] in arm by Michael Hogan MD at [facility] 07/06/2019. Dialyzed thrice weekly via catheter Dr. [...] and albuminuria creatinine ratio between 30-299 mg/g ([facility]) Dr. Martin - COPD (chronic obstructive pulmonary disease) ([facility]) Dr. Cruz - Depression - Diabetes ([facility]) - Diabetic neuropathy ([facility]) - Edema - ESRD (end stage renal disease) on dialysis ([facility]) MW, Dr. Martin - GERD (gastroesophageal reflux disease) - Gout with hyperuricemia - HH (hiatus hernia) - HOCM (hypertrophic obstructive cardiomyopathy) ([facility]) S/P Septal Myectomy in 2003. Now with LVEF 50% and mod/severe pulm HTN. - HTN (hypertension) - Hyperlipidemia - Morbid obesity with BMI of 40.0-44.9, adult ([facility]) - Sleep apnea 2011 not on CPAP, unable to tolerate mask 02/2017 - SVT (supraventricular tachycardia) ([facility]) NSVT and questionable VT in 2003 post [...] age 89, HTN - Heart Failure Mother PA - Cancer Father age 71, lung cancer [...] strength symmetrical. No tremor. DATA REVIEW: Echocardiogram, [facility], 05/12/2018: LV: Mild concentric LVH. D-shaped septum [...] appears to be in atrial fibrillation. CTA chest,[facility], 05/19/2018: Impression: No demonstrated pulmonary embolism or [...] independently reviewed these CTA Chest images on [facility], and I concur with the [...] ? ? ? 75 ?74 ? 79 CAF338% ? ?Sec ? ?7.87 ? 6.09 ?-23 Lung Volumes TLC ?Liters ? ? ?5.67 ?3.07 ?54 RV ? Liters ? ? ?2.51 ?1.74 ?69 RV/TLC ? ? % ? 46 ?57 Diffusing Capacity DLCO ? ? ? 21.5 ?8.3 ? 38 DLCO/VA ? ? 4.01 ? ? ? 4.03 ?101 IMPRESSION AND RECOMMENDATIONS: 1. Recent [facility] CT chest without pulmonary embolism, pneumonia, lung [...] consultation is available from me and/or my [facility] [place] colleagues at [facility] if needed at the discretion of the surgeon. I addressed the questions of the patient and her daughter, and they expressed understanding and acceptance of my answers. Donnell Cruz MD, [facility] [place] [facility] [address] [place] [id number] P: [phone] F: [phone] Donnell Cruz MD 06/16/2018 2:26 PM Signed 1. Recent [facility] CT chest without pulmonary embolism (blood clots), [...] consultation is available from me and/or my [facility] [place] colleagues at [facility] if needed frarah-operatively. Donnell Cruz MD, [facility] [place] [facility] [address] [address] P: [phone] F: [phone] [email or web address] Referring Provider: MANDY ADKINS [[id number]] Allergies As of Date: 06/16/2018 Noted Allergy [...] Recorded Primary Visit Diagnosis:Chronic hypoxemic respiratory failure ([facility]) [J96.11] Other Visit Diagnoses:Chronic obstructive pulmonary disease, unspecified COPD type ([facility]) [J44.9] Chronic combined systolic and diastolic CHF (congestive heart failure) ([facility]) [I50.42] Encounter for preoperative pulmonary examination [Z01.811] [...] Other instructions from your clinician: 1. Recent [facility] CT chest without pulmonary embolism (blood clots), [...] consultation is available from me and/or my [facility] [place] colleagues at [facility] if needed farrah-operatively. Donnell Cruz MD, [facility] [place] [facility] [address] [place] [id number] P: [phone] F: [phone] [email or web address] Visit Notes: >> Michael Brown COAL SHOOTER Gwen Jun 16, 2018 1:26 PM Status: Addendum ROS: General: Generally feels fatigued. Appetite good. Eyes, Ears, nose, throat: denies post nasal drip. denies rhinorrhea. denies purulent nasal discharge. occasional epistaxis, self limiting. denies hoarseness. Vision stable. Cardiac: denies angina, notes edema- improved, notes orthopnea. GI: denies heartburn. denies dysphagia. denies diarrhea- c/o abdominal cramping and constipation Uro/RETURN TO FACTORY CLERK: denies dysuria. denies hesitancy. denies nocturia. Menses: [...] Status:Closed by DONNELL CRUZ MD on 06/16/18 ELÍASN Observed: 06/16/2018 Status: COMPLETED Source: READING 12:00 AM [facility] REPOSITORY Telephone (FAMPWS) LUZ BACA ([id number]) 1940 F Date Time Provider Department 06/16/18 [facility] K[facility]ARA[facility] visit today, we recorded the [...] Please review and advise. Call Cristina @ [phone] with any messages. Erinn Kamara MD 06/16/2018 1:57 PM Signed I would avoid tramadol for this pain as it could worsen constipation. Miralax is a good option and can be taken daily to BID for symptoms. Push PO fluids, increase fiber, and call if symptoms change or worsen. Sohail Longoria Ma 06/16/2018 3:51 PM Addendum [facility] Nurse Cristina notified of results, verbalizes [...] needed for constipation. Cosign required by JAMESON KAMARA)[[id number]] Encounter Status:Closed by SOHAIL LONGORIA MA on 06/16/18 HOSP Observed: 06/15/2018 Status: COMPLETED Source: READING 12:00 AM CLINIC OTHER CAMPUS REPOSITORY Patient:Luz Baca MRN: <[id number]> Height:5' 8(1.727 m) Weight:0 lb (0 kg) [...] 5.3 mmol/L 07/12/2018 5.1 3.7 Progress Notes ([facility]): Thiago Ruano RN 07/11/2018 1:47 PM Signed Call from Yelena at [facility] regarding Ms. Baca. States they are having problems with her catheter being very sluggish during diaylsis- wondering if Dr. Hogan would be able to change it out tomorrow in hopes of preventing patient from needing to come to [place] again for the catheter exchange. Informed Yelena I would forward request to Dr. Hogan to see if this could be arranged. Michael Hogan, 07/11/2018 2:05 PM Signed Noted. Will inform OR Progress Notes ([facility]): CHRISSY Byers, CT 07/07/2018 10:28 AM Sign at [...] Exam(s) Completed: CTA Aorta/leg runoff SIGNED BY: CHRISSY Byers July 07, 2018 10:27 AM PROGRESS Observed: 06/14/2018 Status: COMPLETED Source: READING 4:14 PM [facility] REPOSITORY HNO ID: [id number] Author: Adriel Pringle Service: (none) Author Type: [...] place - Cardiomegaly - Carotid artery disease ([facility]) left - Chronic kidney disease (CKD) stage G3b/A2, moderately decreased glomerular filtration rate (GFR) between 30-44 mL/min/1.73 square meter and albuminuria creatinine ratio between 30-299 mg/g ([facility]) Dr. Martin - COPD (chronic obstructive pulmonary disease) ([facility]) Dr. Cruz - Depression - Diabetes ([facility]) - Diabetic neuropathy ([facility]) - Edema - ESRD (end stage renal disease) on dialysis ([facility]) MWF, Dr. Martin - GERD (gastroesophageal reflux disease) - Gout with hyperuricemia - HH (hiatus hernia) - HOCM (hypertrophic obstructive cardiomyopathy) ([facility]) S/P Septal Myectomy in 2003. Now with LVEF 50% and mod/severe pulm HTN. - HTN (hypertension) - Hyperlipidemia - Morbid obesity with BMI of 40.0-44.9, adult ([facility]) - Sleep apnea 2011 not on CPAP, unable to tolerate mask 02/2017 - SVT (supraventricular tachycardia) ([facility]) NSVT and questionable VT in 2003 post [...] is returning 2. PVD (peripheral vascular disease) ([facility]) - ICD9: 443.9, ICD10: I73.9 - COMPRESSION [...] APRN.ELÍAS CNOV Observed: 06/14/2018 Status: COMPLETED Source: READING 1:20 PM [facility] REPOSITORY [facility] KEVENLUZ Salvador ([id number]) 1940 F Date Time Provider Department 06/14/18 [...] place - Cardiomegaly - Carotid artery disease ([facility]) left - Chronic kidney disease (CKD) stage G3b/A2, moderately decreased glomerular filtration rate (GFR) between 30-44 mL/min/1.73 square meter and albuminuria creatinine ratio between 30-299 mg/g ([facility]) Dr. Martin - COPD (chronic obstructive pulmonary disease) ([facility]) Dr. Cruz - Depression - Diabetes ([facility]) - Diabetic neuropathy ([facility]) - Edema - ESRD (end stage renal disease) on dialysis ([facility]) MW, Dr. Martin - GERD (gastroesophageal reflux disease) - Gout with hyperuricemia - HH (hiatus hernia) - HOCM (hypertrophic obstructive cardiomyopathy) ([facility]) S/P Septal Myectomy in 2003. Now with LVEF 50% and mod/severe pulm HTN. - HTN (hypertension) - Hyperlipidemia - Morbid obesity with BMI of 40.0-44.9, adult ([facility]) - Sleep apnea 2011 not on CPAP, unable to tolerate mask 02/2017 - SVT (supraventricular tachycardia) ([facility]) NSVT and questionable VT in 2003 post [...] is returning 2. PVD (peripheral vascular disease) ([facility]) - ICD9: 443.9, ICD10: I73.9 - COMPRESSION STOCKINGS 3. Chronic combined systolic and diastolic CHF (congestive heart failure) ([facility]) - ICD9: 428.42, 428.0, ICD10: I50.42 - COMPRESSION STOCKINGS 4. Acute renal failure superimposed on stage 3 chronic kidney disease, unspecified acute renal failure type ([facility]) - ICD9: 584.9, 585.3, ICD10: N17.9, N18.3 - COMPRESSION STOCKINGS Adriel Pringle APRN.CHIEF MECHANICAL ENGINEER Allergies As of Date: 06/14/2018 Noted Allergy [...] [T14.8XXA] Other Visit Diagnoses:PVD (peripheral vascular disease) ([facility]) [I73.9] Chronic combined systolic and diastolic CHF (congestive heart failure) ([facility]) [I50.42] Acute renal failure superimposed on stage 3 chronic kidney disease, unspecified acute renal failure type ([facility]) [N17.9, N18.3] Order(s):COMPRESSION STOCKINGS [[id number]] Order #: [id number] Prescriptions as of 06/14/2018 Sig: CARVEDILOL 3.125 [...] MG-* Inhale 3 mL as instructed leanne* MICHELEONIDE 0.5 MG/2 ML SUSPEN* Use 2 mL [...] 01/23/2018 Priority: I More... SVT (supraventricular tachycardia) ([facility]) [I47.1] 01/21/2018 More... Carotid artery disease (HCC) [...] 06/14/18 PROGRESS Observed: 06/08/2018 Status: COMPLETED Source: READING 5:23 PM [facility] [place] RE[facility]IT[facility] HNO ID: [id number] Author: Sean Han Ma Service: (none) Author Type: (none) Type: Progress Notes Filed: 06/08/2018 5:23 PM Note Text: Order faxed to [facility] [place] [facility] PROGRESS Observed: 06/08/2018 Status: COMPLETED Source: READING 4:48 PM [facility] REPOSITORY HNO ID: [id number] Author: Remi Briseno) Brent Service: (none) Author [...] understanding. PROGRESS Observed: 06/08/2018 Status: COMPLETED Source: READING 4:12 PM [facility] [place] REPOSITORY HNO ID: [id number] Author: Jameson Kamara Service: (none) Author Type: Physician Type: Progress Notes Filed: 06/08/2018 4:58 PM Note Text: Order placed. Thanks! PROGRESS Observed: 06/08/2018 Status: COMPLETED Source: READING 9:18 AM [facility] REPOSITORY HNO ID: [id number] Author: Remi Briseno) Brent Service: (none) Author Type: Registered Nurse Type: Progress Notes Filed: 06/08/2018 2:57 PM Note Text: TRANSITION CARE MANAGEMENT (TCM) FOLLOW-UP NOTE Provider Action/FYI Order for Lyrica pended per Dr. Swartz's POLYSOMNOGRAPHIC TECHNICIAN recommendation Patient identified by name and date of : YES Spoke to nurse from [facility] Summary: TC from nurse, Anahi, states she [...] States she will check with Dr. Swartz's POLYSOMNOGRAPHIC TECHNICIAN and call PCC back. Hotshot Superintendent plan for next outreach: Will follow up next week Remi Kennedy RN June 08, 2018 PROGRESS Observed: 06/07/2018 Status: COMPLETED Source: READING 3:14 PM [facility] REPOSITORY HNO ID: [id number] Author: Remi Briseno) Brent Service: (none) Author [...] 2018 PROGRESS Observed: 06/07/2018 Status: COMPLETED Source: READING 1:28 PM [facility] REPOSITORY O ID: [id number] Author: Jameson Adams) Koffi Service: (none) Author [...] taking gabapentin since she was in the 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. Previous dose was not helping with neuropathy. [...] and albuminuria creatinine ratio between 30-299 mg/g ([facility]) Dr. Martin - COPD (chronic obstructive pulmonary disease) ([facility]) Dr. Cruz - Depression - Diabetes ([facility]) - Diabetic neuropathy ([facility]) - Edema - GERD (gastroesophageal reflux disease) - Gout with hyperuricemia - HH (hiatus hernia) - HOCM (hypertrophic obstructive cardiomyopathy) ([facility]) S/P Septal Myectomy in 2003. Now with LVEF 50% and mod/severe pulm HTN. - HTN (hypertension) - Hyperlipidemia - Morbid obesity with BMI of 40.0-44.9, adult ([facility]) - Sleep apnea 2011 not on CPAP, unable to tolerate mask 02/2017 - SVT (supraventricular tachycardia) ([facility]) NSVT and questionable VT in 2003 post [...] age 89, HTN - Heart Failure Mother PA - Cancer Father age 71, lung cancer [...] Lymph 1.00 - 4.00 k/uL 1.46 1.83 [place]% % 10.4 10.3 Abs [place] <0.87 k/uL 0.67 0.72 Eosin% % 3.9 [...] ESRD (end stage renal disease) on dialysis ([facility]) - ICD9: 585.6, V45.11, ICD10: N18.6, Z99.[address] Martin. 4. Hypotension, unspecified hypotension type - ICD9: 458.9, ICD10: I95.9 Discussed medications for HTN, but based on cardiac history, would not change any at this time. Will have career representative Remi Kennedy contact Dr. Martin' office to see if less fluid can be drawn off during dialysis. 5. Generalized weakness - ICD9: 780.79, ICD10: R53.1 Improving with PT. 6. Coronary artery disease, angina presence unspecified, unspecified vessel or lesion type, unspecified whether [place] or transplanted heart - ICD9: 414.00, ICD10: I25.10 Improving chest pain with higher dose of Imdur. Recommendations per Dr. Cardona. 7. Atrial fibrillation, unspecified type (HCC) - ICD9: 427.31, ICD10: I48.91 Rate controlled. On Eliquis. Continue current regimen and follow up with cardiology. Jameson Kamara MD CNOV Observed: 06/07/2018 Status: COMPLETED Source: READING 1:00 PM [facility] REPOSITORY Office Visit (FAMPWS) LUZ BACA ([id number]) 1940 F Date Time Provider Department 06/07/18 [...] taking gabapentin since she was in the 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. Previous dose was not helping with neuropathy. [...] and albuminuria creatinine ratio between 30-299 mg/g ([facility]) Dr. Martin - COPD (chronic obstructive pulmonary disease) ([facility]) Dr. Cruz - Depression - Diabetes ([facility]) - Diabetic neuropathy ([facility]) - Edema - GERD (gastroesophageal reflux disease) - Gout with hyperuricemia - HH (hiatus hernia) - HOCM (hypertrophic obstructive cardiomyopathy) ([facility]) S/P Septal Myectomy in 2003. Now with LVEF 50% and mod/severe pulm HTN. - HTN (hypertension) - Hyperlipidemia - Morbid obesity with BMI of 40.0-44.9, adult ([facility]) - Sleep apnea 2011 not on CPAP, unable to tolerate mask 02/2017 - SVT (supraventricular tachycardia) ([facility]) NSVT and questionable VT in 2003 post [...] age 89, HTN - Heart Failure Mother PA - Cancer Father age 71, lung cancer [...] Lymph 1.00 - 4.00 k/uL 1.46 1.83 [place]% % 10.4 10.3 Abs [place] <0.87 k/uL 0.67 0.72 Eosin% % 3.9 [...] Chronic obstructive pulmonary disease, unspecified COPD type ([facility]) - ICD9: 496, ICD10: J44.9 Controlled on current regimen. 3. ESRD (end stage renal disease) on dialysis ([facility]) - ICD9: 585.6, V45.11, ICD10: N18.6, Z99.[address] Martin. 4. Hypotension, unspecified hypotension type - ICD9: 458.9, ICD10: I95.9 Discussed medications for HTN, but based on cardiac history, would not change any at this time. Will have career representative Remi Kennedy contact Dr. Martin' office to see if less fluid can be drawn off during dialysis. 5. Generalized weakness - ICD9: 780.79, ICD10: R53.1 Improving with PT. 6. Coronary artery disease, angina presence unspecified, unspecified vessel or lesion type, unspecified whether prairie band or transplanted heart - ICD9: 414.00, ICD10: I25.10 Improving chest pain with higher dose of Imdur. Recommendations per Dr. Cardona. 7. Atrial fibrillation, unspecified type (HCC) - ICD9: 427.31, ICD10: I48.91 Rate controlled. On Eliquis. Continue current regimen and follow up with cardiology. Jameson Kamara MD Referring Provider: JAMESON KAMARA () [[id number]] Allergies As of Date: 06/07/2018 Noted Allergy [...] polyneuropathy associated with type 2 diabetes mellitus ([facility]) [E11.42] Other Visit Diagnoses:Chronic obstructive pulmonary disease, unspecified COPD type ([facility]) [J44.9] ESRD (end stage renal disease) on dialysis ([facility]) [N18.6, Z99.2] Hypotension, unspecified hypotension type [I95.9] Generalized weakness [R53.1] Coronary artery disease, angina presence unspecified, unspecified vessel or lesion type, unspecified whether prairie band or transplanted heart [I25.10] Atrial fibrillation, unspecified type ([facility]) [I48.91] Order(s):pregabalin (LYRICA) 25 mg capsuleTake 1 [...] Status:Closed by JAMESON KAMARA MD on 06/07/18 LUDA Observed: 06/07/2018 Status: COMPLETED Source: [place] 12:00 AM [facility] REPOSITORY Patient Outreach (FAMPWS) LUZ BACA ([id number]) 1940 F Date Time Provider Department 06/07/18 REMI KENNEDY) SLOANWS During your visit today, [...] Order for Lyrica pended per Dr. Swartz's POLYSOMNOGRAPHIC TECHNICIAN recommendation Patient identified by name and date of : YES Spoke to nurse from [facility] Summary: TC from nurseAnahi, states she spoke to Russell Snider NP [...] States she will check with Dr. Swartz's POLYSOMNOGRAPHIC TECHNICIAN and call PCC back. Hotshot Superintendent plan for next outreach: Will follow up [...] 06/08/2018 5:23 PM Signed Order faxed to [facility] [place] [facility] Allergies As of Date: 06/07/2018 Noted [...] Ma - Fully Assessed Reason for Visit: [employer]-In Office Visit [6965] Visit Diagnosis:Diabetic polyneuropathy associated with type 2 [...] 06/08/18 PROGRESS Observed: 06/06/2018 Status: COMPLETED Source: [place] 9:55 AM [facility] REPOSITORY HNO ID: [id number] Author: Michael Hogan Service: (none) Author Type: Physician Type: Progress Notes Filed: 06/06/2018 9:55 AM Note Text: This office note has been dictated. Michael Hogan DO CNOV Observed: 06/06/2018 Status: COMPLETED Source: [place] 8:45 AM [facility] REPOSITORY Office Visit (VASSWS) LUZ BACA ([id number]) 1940 F Date Time Provider Department 06/06/18 8:45 AM MICHAEL HOGANS During your visit today, we recorded the following information about you: Pulse Blood pressure 55/minute 104/50 Michael Hogan DO 06/06/2018 9:55 AM Signed This office note has been dictated. Michael Hogan DO Referring Provider: JAMESON KAMARA) [[id number]] Allergies As of Date: 06/06/2018 Noted Allergy [...] (HCC) [I73.9] Order(s):CREATININE BLD [SQCRET] Order #: [id number] FUTURE CTA ABD/PEL LOWER EXTREM W IVCON [[id number]] Order #: [id number] FUTURE iv contrast (will be provided with [...] 06/06/18 PROGRESS Observed: 06/06/2018 Status: COMPLETED Source: [place] 12:00 AM [facility] REPOSITORY O ID: [id number] Author: Michael Hogan Service: Vascular Surgery Author Type: Physician Type: Progress Notes Filed: 06/12/2018 12:33 PM Note Text: NAME: [facility] NO: [id number] DATE OF SERVICE: 06/06/2018 Subjective: Ms. Baca is here to follow up on PVD and possible fistula creation. Her appointment in April was rescheduled as she was admitted to [facility] for possible PA. She has had no further chest pain [...] schedule. Michael Hogan D.O. KB/089 Audio #: [id number] Date Dictated: 06/06/2018 08:48:20 Date Typed: 06/10/2018 09:13:46 Date Revised: OBSOLETE Observed: 06/02/2018 Status: COMPLETED Source: [place] 8:00 AM [facility] REPOSITORY Procedure (AKEPD) LUZ BACA ([id number]) 1940 F Date Time Provider Department 06/02/18 8:00 AM REM DEVICE CK AKEPD During your visit today, we recorded the following information about you: Referring Provider: ENE HUBBARD [[id number]] Allergies As of Date: 06/02/2018 Noted Allergy [...] systolic and diastolic CHF (congestive heart failure) ([facility]) [I50.42] Prescriptions as of 06/02/2018 Sig: ELIQUIS [...] 01/23/2018 Priority: I More... SVT (supraventricular tachycardia) ([facility]) [I47.1] 01/21/2018 More... Carotid artery disease (HCC) [...] 35-39.9 [E66.9] INVALID FOR* Encounter Status:Closed by EDUARDO HERNANDEZ on 06/02/18 PROGRESS Observed: 06/01/2018 Status: COMPLETED Source: [place] 3:48 PM [facility] REPOSITORY [facility] ID: [id number] Author: Dina Claudio Service: (none) Author Type: [...] December 31, 2017. This was performed in [place]. The patient was found to have a [...] performed she recalls 5 years previously and [place]. She is uncertain what the findings were [...] and albuminuria creatinine ratio between 30-299 mg/g ([facility]) Dr. Martin - COPD (chronic obstructive pulmonary disease) ([facility]) Dr. Cruz - Depression - Diabetes ([facility]) - Diabetic neuropathy ([facility]) - Edema - GERD (gastroesophageal reflux disease) - Gout with hyperuricemia - HH (hiatus hernia) - HOCM (hypertrophic obstructive cardiomyopathy) ([facility]) S/P Septal Myectomy in 2003. Now with LVEF 50% and mod/severe pulm HTN. - HTN (hypertension) - Hyperlipidemia - Morbid obesity with BMI of 40.0-44.9, adult ([facility]) - Sleep apnea 2011 not on CPAP, unable to tolerate mask 02/2017 - SVT (supraventricular tachycardia) ([facility]) NSVT and questionable VT in 2003 post [...] age 89, HTN - Heart Failure Mother PA - Cancer Father age 71, lung cancer - Heart Attack Sister - COPD Brother - Heart Paternal Grandmother - Heart Paternal Grandfather - Heart Sister - Diabetes Sister - Heart Sister - Breast Cancer Sister - Diabetes Sister - Hypertension Brother - Diabetes Brother REVIEW OF SYMPTOMS: The review of systems data was entered by the nurse and reviewed by wy Nursing Notes: Meenakshi Lemos RN 05/31/2018 2:11 [...] MD CNOV Observed: 05/31/2018 Status: COMPLETED Source: [place] 1:30 PM [facility] REPOSITORY Office Visit (GENSWS) LUZ BACA ([id number]) 1940 F Date Time Provider Department 05/31/18 1:30 PM DINA CLAUDIO GENDWAYNES During your visit today, we recorded the [...] December 31, 2017. This was performed in [place]. The patient was found to have a [...] performed she recalls 5 years previously and [place]. She is uncertain what the findings were [...] place - Cardiomegaly - Carotid artery disease ([facility]) left - Chronic kidney disease (CKD) stage G3b/A2, moderately decreased glomerular filtration rate (GFR) between 30-44 mL/min/1.73 square meter and albuminuria creatinine ratio between 30-299 mg/g ([facility]) Dr. Martin - COPD (chronic obstructive pulmonary disease) ([facility]) Dr. Cruz - Depression - Diabetes (HCC) - Diabetic neuropathy ([facility]) - Edema - GERD (gastroesophageal reflux disease) - Gout with hyperuricemia - HH (hiatus hernia) - HOCM (hypertrophic obstructive cardiomyopathy) ([facility]) S/P Septal Myectomy in 2003. Now with LVEF 50% and mod/severe pulm HTN. - HTN (hypertension) - Hyperlipidemia - Morbid obesity with BMI of 40.0-44.9, adult ([facility]) - Sleep apnea 2011 not on CPAP, unable to tolerate mask 02/2017 - SVT (supraventricular tachycardia) ([facility]) NSVT and questionable VT in 2003 post [...] age 89, HTN - Heart Failure Mother PA - Cancer Father age 71, lung cancer - Heart Attack Sister - COPD Brother - Heart Paternal Grandmother - Heart Paternal Grandfather - Heart Sister - Diabetes Sister - Heart Sister - Breast Cancer Sister - Diabetes Sister - Hypertension Brother - Diabetes Brother REVIEW OF SYMPTOMS: The review of systems data was entered by the nurse and reviewed by wy Nursing Notes: Meenakshi Lemos RN 05/31/2018 2:11 [...] Dina Claudio MD Referring Provider: ADRIEL PRINGLE ([employer]) [[id number]] Allergies As of Date: 05/31/2018 Noted Allergy [...] years Last Colonoscopy: 2011 Meenakshi Lemos RN Encounter Status:Closed by DINA CLAUDIO MD on 06/01/18 PROGRESS Observed: 05/31/2018 Status: COMPLETED Source: [place] 11:53 AM [facility] REPOSITORY HNO ID: [id number] Author: Jameson Kaamra Service: (none) Author Type: Physician Type: Progress Notes Filed: 05/31/2018 11:53 AM Note Text: Reviewed. PROGRESS Observed: 05/30/2018 Status: COMPLETED Source: [place] 4:31 PM [facility] REPOSITORY HNO ID: [id number] Author: Remi Briseno) Brent Service: (none) Author [...] Verbalized compliance with Lantus dose as ordered. Hotshot Superintendent plan for next outreach: Will follow up tomorrow Signature Remi Kennedy RN May 30, 2018 CNCO Observed: 05/30/2018 Status: COMPLETED Source: [place] 12:00 AM [facility] REPOSITORY Letter Text [facility] [address] [id number] Dept: [phone] Dept Ene Hubbard DO May 30, 2018 Luz Baca [address] [facility] [address] 1940 Dear , Your appointment on 10/04/18 has been cancelled. Please contact our office to reschedule your appointment. Please notify us of any change of your phone number or address. Sincerely, Ene Hubbard D.O. (Signed electronically to expedite mailing) LUDA Observed: 05/30/2018 Status: COMPLETED Source: [place] 12:00 AM [facility] REPOSITORY Patient Outreach (FAMPWS) LUZ BACA ([id number]) 1940 F Date Time Provider Department 05/30/18 [...] Verbalized compliance with Lantus dose as ordered. Hotshot Superintendent plan for next outreach: Will follow up [...] LPN - Fully Assessed Reason for Visit: [employer] Hospital Follow Up [3610] Prescriptions as of [...] ALBUMIN/CREAT RATIO Collected: 05/25/2018 Status: F Source: [place] 10:23 AM [facility] REPOSITORY TYPE CODE TESTS RESULT OUT [...] 1995, 25:107) Performed By: #### UACR #### [place] [address] HEMOGLOBIN A1C Collected: 05/25/2018 Status: F Source: [place] 10:21 AM [facility] REPOSITORY TYPE CODE TESTS RESULT OUT OF REFERENCE UNITS RANGE LAB HGBA1C 4.3-5.6 % High Hemoglobin A1c 6.8 LAB HBA0 mg/dL Est. Average Glucose 148 Result Comment: eAG: (Estimated average glucose) is a calculated value from HgbA1c and is advertising account representative of the average blood glucose level in the last 2-3 month period. Performed By: #### HBA1C #### [place] [address] ALT Collected: 05/25/2018 Status: F Source: [place] 10:20 AM [facility] REPOSITORY TYPE CODE TESTS RESULT OUT OF RANGE REFERENCE UNITS LAB ALT 7-38 U/L ALT 13 Performed By: #### ALT, TSH #### [place] [address] TSH Collected: 05/25/2018 Status: F Source: [place] 10:20 AM [facility] REPOSITORY TYPE CODE TESTS RESULT OUT OF RANGE REFERENCE UNITS LAB TSH 0.400-5.500 uU/mL TSH 2.110 Performed By: #### ALT, TSH #### [facility] [employer] [address] [place], [place] [address] LIPID PANEL, BASIC Collected: 05/25/2018 Status: F Source: [place] 10:19 AM [facility] [place] REPOSITORY TYPE CODE TESTS RESULT OUT OF [...] Desk Reference: National Heart, Lung, and Blood [place]. National Institutes of Health. 2001: NIH Publication No. 01-3305. 2. An International Atherosclerosis Society position paper: global recommendations for the management of dyslipidemia: executive summary, Atherosclerosis. 2014: 232(2):410-413. Performed By: #### LIPB #### [facility] [employer] [address] [place] [id number] PROGRESS Observed: 05/24/2018 Status: COMPLETED Source: [place] 2:11 PM [facility] REPOSITORY HNO ID: [id number] Author: Aren Cardona Service: (none) Author Type: [...] restart Beta lenny for ASHD with prior PA or prior LVEF<40 (NQF 0070) - COPD [...] was started on amiodarone while hospitalized in [place]. She went to rehabilitation facility for a while. She was hospitalized at [facility] with decompensated heart failure. She was taken [...] place - Cardiomegaly - Carotid artery disease ([facility]) left - Chronic kidney disease (CKD) stage G3b/A2, moderately decreased glomerular filtration rate (GFR) between 30-44 mL/min/1.73 square meter and albuminuria creatinine ratio between 30-299 mg/g ([facility]) Dr. Martin - COPD (chronic obstructive pulmonary disease) ([facility]) Dr. Cruz - Depression - Diabetes ([facility]) - Diabetic neuropathy ([facility]) - Edema - GERD (gastroesophageal reflux disease) - Gout with hyperuricemia - HH (hiatus hernia) - HOCM (hypertrophic obstructive cardiomyopathy) ([facility]) S/P Septal Myectomy in 2003. Now with LVEF 50% and mod/severe pulm HTN. - HTN (hypertension) - Hyperlipidemia - Morbid obesity with BMI of 40.0-44.9, adult ([facility]) - Sleep apnea 2011 not on CPAP, unable to tolerate mask 02/2017 - SVT (supraventricular tachycardia) ([facility]) NSVT and questionable VT in 2003 post [...] age 89, HTN - Heart Failure Mother PA - Cancer Father age 71, lung cancer [...] MD CNOV Observed: 05/24/2018 Status: COMPLETED Source: [place] 1:30 PM [facility] REPOSITORY Office Visit (CAWSTR) LUZ BACA ([id number]) 1940 F Date Time Provider Department 05/24/18 1:30 PM AREN CARDONATR During your visit today, we recorded the following information about you: Pulse Blood pressure Weight 67/minute 106/62 90.5 kg Aren Cardona MD 05/24/2018 5:33 PM Signed PERTINENT CARDIAC HISTORY ASHD - CABGx3 2003, PCIx6 RCA 2014, PCIx3 2014 HCM - septal myectomy 2003 [...] restart Beta lenny for ASHD with prior PA or prior LVEF<40 (NQF 0070) - COPD [...] was started on amiodarone while hospitalized in [place]. She went to rehabilitation facility for a while. She was hospitalized at [facility] with decompensated heart failure. She was taken [...] place - Cardiomegaly - Carotid artery disease ([facility]) left - Chronic kidney disease (CKD) stage G3b/A2, moderately decreased glomerular filtration rate (GFR) between 30-44 mL/min/1.73 square meter and albuminuria creatinine ratio between 30-299 mg/g ([facility]) Dr. Martin - COPD (chronic obstructive pulmonary disease) ([facility]) Dr. Cruz - Depression - Diabetes ([facility]) - Diabetic neuropathy ([facility]) - Edema - GERD (gastroesophageal reflux disease) - Gout with hyperuricemia - HH (hiatus hernia) - HOCM (hypertrophic obstructive cardiomyopathy) ([facility]) S/P Septal Myectomy in 2003. Now with LVEF 50% and mod/severe pulm HTN. - HTN (hypertension) - Hyperlipidemia - Morbid obesity with BMI of 40.0-44.9, adult ([facility]) - Sleep apnea 2011 not on CPAP, unable to tolerate mask 02/2017 - SVT (supraventricular tachycardia) ([facility]) NSVT and questionable VT in 2003 post op PAST SURGICAL HISTORY Procedure Laterality Date - CHOLECYSTECTOMY HX - HEART SURGERY HX 07/18/2004 Septal myectomy and CABG x2 (DBEORAH-LAD, SVG-PDA). - HYSTERECTOMY HX - IANDD PERIANAL ABSCESS - PAST SURGICAL HISTORY OF left breast nodule removed - PAST SURGICAL HISTORY OF skin lesions removed FAMILY HISTORY Problem Relation Age of Onset - Hypertension Mother living at age 93, HTN - Heart Failure Mother PA - Cancer Father age 71, lung cancer [...] the following areas and commit to making 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 teacher changes. EAT A WHOLE FOOD, PLANT BASED [...] in your area. Referring Provider: AREN CARDONA [[id number]] Allergies As of Date: 05/24/2018 Noted Allergy [...] unspecified vessel or lesion type, unspecified whether prairie band or transplanted heart [I25.10] Order(s):isosorbide mononitrate ER (IMDUR) 60 mg 24 hr tabletTake 1.5 tablets by mouth once daily.Disp: 30 tabletRfl: 5 ALT/SGPT [SQALT] Order #: [id number] FUTURE TSH BLD [SQTSH] Order #: [id number] FUTURE Prescriptions as of 05/24/2018 Sig: ISOSORBIDE [...] the following areas and commit to making [place] [facility] changes. EAT A WHOLE FOOD, PLANT BASED [...] 05/24/18 CNPTOUTRRADHA Observed: 05/24/2018 Status: COMPLETED Source: [place] 12:00 AM [facility] REPOSITORY Patient Outreach (FAMPST) LUZ BACA ([id number]) 1940 F Date Time Provider Department 05/24/18 [facility]AMARA[facility] your visit today, we recorded the [...] Date Reviewed: 05/24/2018 Reviewed by: Panda Page COAL SHOOTER - Fully Assessed Visit Diagnosis:Medication management [Z79.899] Order(s):ALBUMIN/CREAT RATIO RND UR [SQUACR] Order #: [id number] FUTURE LIPID PANEL BASIC [SQLIPB] Order #: [id number] FUTURE Prescriptions as of 05/24/2018 Sig: X [...] 35-39.9 [E66.9] INVALID FOR* Encounter Status:Closed by JIMMY MORELR on 07/29/18 12 LEAD ELECTROCARDIOGRAM Observed: 05/23/2018 Status: F Source: [place] 2:26 PM [facility] REPOSITORY [facility] Cardiovascular Services [address] [place] [address] 12 Lead EKG 05/19/18 1207 MR#: [id number] Acct: [id number] Name: LUZ BACA Rep #: [id number] : 1940 77 From: Ayde Butt MD [...] ECG Confirmed by KEARA COLLIER, AYDE ([id number]), publication editor JASON ALDANA ([id number]) on 05/23/2018 2:25:58 PM Referred By: RAMANA Confirmed By:AYDE BUTT MD 05/23/18 1426 Date Ayde Butt MD CC: Mook Kamara MD; Mandy Grajdea MD Signed PROGRESS Observed: 05/23/2018 Status: COMPLETED Source: [place] 11:18 AM [facility] REPOSITORY HNO ID: [id number] Author: Jameson Kamara Service: (none) Author Type: Physician Type: Progress Notes Filed: 05/23/2018 11:18 AM Note Text: A1C placed as ordered. Follow up with Dr. Cardona as scheduled tomorrow. PROGRESS Observed: 05/23/2018 Status: COMPLETED Source: [place] 10:21 AM [facility] [place] REPOSITORY HNO ID: [id number] Author: Remi OsheaRn) Brent Service: (none) Author Type: Registered Nurse Type: Progress Notes Filed: 05/23/2018 11:08 AM Note Text: DRY ROOM ATTENDANT EMERGENCY DEPARTMENT FOLLOW UP INITIAL CONTACT Provider [...] date : YES SUMMARY: -Patient discharged from [facility] ED on 05/19. -Follow up appointment [...] was sent for a CTA. She has [place] and Ultram that she will take as [...] sided pacemaker battery pack. Remi Kennedy RN CNPTOUTREACH Observed: 05/23/2018 Status: COMPLETED Source: [place] 12:00 AM [facility] REPOSITORY Patient Outreach (FAMPWS) LUZ BACA ([id number]) 1940 F Date Time Provider Department 05/23/18 REMI KENNEDY ([place]) FAMPWS During your visit today, we recorded the following information about you: Remi Kennedy RN 05/23/2018 11:08 AM Addendum DRY ROOM ATTENDANT EMERGENCY DEPARTMENT FOLLOW UP INITIAL CONTACT Provider [...] date : YES SUMMARY: -Patient discharged from [facility] ED on 05/19. -Follow up appointment [...] was sent for a CTA. She has [place] and Ultram that she will take as [...] Ma - Fully Assessed Reason for Visit: [employer] Ed Follow Up [3617] Primary Visit Diagnosis:Uncontrolled type 2 diabetes mellitus with stage 3 chronic kidney disease, with long- term current use of insulin (HCC) [E11.22, E11.65, N18.3, Z79.4] Order(s):HGB A1C [WDHGK4S] Order #: [id number] FUTURE Prescriptions as of 05/23/2018 Sig: ISOSORBIDE [...] EMERGENCY DEPARTMENT Observed: 05/19/2018 Status: F Source: [place] SUMMARY 6:49 PM [facility] REPOSITORY [facility] Medical Records Department [address] [place] [address] Emergency Department Summary 05/19/18 1212 MR#: [id number] Acct: [id number] Name: ULZ BACA Rep #: [id number] : 1940 77 From: Mandy Grajeda MD PCP: Mook Kamara MD Status: REG ER ADDENDUM by Shalonda Mast MD on 05/19/18 at 1842 Patient was checked out to me to [...] patient will be discharged home. She has [place] and Ultram that she will take as needed. She is to follow with her primary care physician. Treatment Plan: [] Disposition: Pending CTA results Impression: Chest pain This note was generated with [employer] dictation software. It may contain incorrect words, [...] your Primary Care Provider. Call [facility] ([phone]) or report to the closest Emergency Room. Call 911 if necessary. 05/19/181731 <Electronically signed by Mandy Grajeda MD> Date Mandy Grajeda MD Cosigner Signature (If Indicated): Date CC: Mook Kamara MD DISCHARGE INSTRUCTION Observed: 05/19/2018 Status: F Source: [place] 5:28 PM [facility] REPOSITORY [facility] Medical Records Department [address] [place] [address] Discharge Instruction 05/19/188 MR#: [id number] Acct: [id number] Name: LUZ BACA Rep #: [id number] : 1940 77 From: Mandy Grajeda MD [...] your Primary Care Provider. Call [facility] ([phone]) or report to the closest Emergency Room. Call 911 if necessary. 05/19/18 3946 <Electronically signed by Mandy Grajeda MD> Date Mandy Grajeda MD Cosigner Signature (If Indicated): Date CC: Mook Kamara MD CBC W/DIFF, AUTOMATED Collected: 05/19/2018 Status: F Source: [place] 12:45 PM [facility] REPOSITORY TYPE CODE TESTS RESULT OUT OF [...] Lymph 1.34 Performed By: #### L100.0100 #### [facility] [address] [place], [address] PROTHROMBIN TIME W/INR Collected: 05/19/2018 Status: F Source: [place] 12:45 PM [facility] REPOSITORY TYPE CODE TESTS RESULT OUT OF RANGE REFERENCE UNITS LAB L300.4150 11.7-14.9 SECONDS High PROTIME 20.1 LAB L300.4200 Normal INR 1.7 Performed By: #### L300.3900, L300.4310 #### [facility] [address] [place], [address] PARTIAL THROMBOPLAST Collected: 05/19/2018 Status: F Source: [place] TIME 12:45 PM [facility] REPOSITORY TYPE CODE TESTS RESULT OUT OF RANGE REFERENCE UNITS LAB L300.4310 24.1-36.2 Seconds Normal PTT 34.9 Performed By: #### L300.3900, L300.4310 #### [facility] [address] [facility] [address] [place], [address] BASIC METABOLIC Collected: 05/19/2018 Status: F Source: [place] PROFILE (BMP) 12:45 PM [facility] REPOSITORY TYPE CODE TESTS RESULT OUT OF [...] By: #### L500.2500, L500.3400, L501.2450, L501.4010 #### [facility] [address] [place], [place], [address] LIVER PROFILE Collected: 05/19/2018 Status: F Source: [place] 12:45 PM [facility] REPOSITORY TYPE CODE TESTS RESULT OUT OF [...] By: #### L500.2500, L500.3400, L501.2450, L501.4010 #### [facility] [address] [place], [address] LIPASE Collected: 05/19/2018 Status: F Source: [place] 12:45 PM [facility] REPOSITORY TYPE CODE TESTS RESULT OUT OF RANGE REFERENCE UNITS LAB L501.2450 73-393 U/L Normal LIPASE 253 Performed By: #### L500.2500, L500.3400, L501.2450, L501.4010 #### [facility] [address] [place], [address] TROPONIN-I Collected: 05/19/2018 Status: F Source: [place] 12:45 PM [facility] REPOSITORY TYPE CODE TESTS RESULT OUT OF RANGE REFERENCE UNITS LAB L501.4010 <0.045 ng/mL High alert 0.672 TROPONIN-I Result Comment: Critical Result(s) Called at: 13:14:28 05/19/2018 by: Rosalina Ortega TROPONIN-I EXPECTED VALUES <0.045 Negative 0.045 - 0.590 Consistent with Cardiac Damage > OR = 0.600 Critical Value Not every elevated troponin is indicative of PA. These values should be used with clinical judgement in examining the patient's clinical picture for diagnosis. To establish a diagnosis of PA versus myocardial injury, there must be a demonstrated rise and/or fall in the troponin values, in addition to ischemic symptoms, EKG changes, new regional wall motion abnormality, and/or angiographical evidence. PLEASE NOTE: REFERENCE RANGES EDITED 18 Performed By: #### L500.2500, L500.3400, L501.2450, L501.4010 #### [facility] [address] [place], [address] CTA CHEST W/WO Observed: 05/19/2018 Status: F Source: [place] CONTRAST 12:11 PM [facility] REPOSITORY [facility] Imaging Services [address] [place] [address] CTA Chest W/WO Contrast MR#: [id number] Acct: [id number] Name: LUZ BACA Rep #: [id number] : 1940 F 77 From: Theo Diego MD PCP: Mook Kamara MD Status: REG ER Study: CTA Chest W/WO Contrast Date of Exam: 05/19/18 Exam# [id number] Ordering Dr: Mandy Grajeda MD STUDY: CTA [...] CC: Mook Kamara MD; Mandy Grajeda MD Top Lift Cutter: Signed CHEST 1 VIEW Observed: 05/19/2018 Status: F Source: [place] (PORTABLE) 12:09 PM [facility] REPOSITORY [facility] Imaging Services [address] [place] [address] Chest 1 View (Portable) MR#: [id number] Acct: [id number] Name: LUZ BACA Rep #: [id number] : 1940 F 77 From: Antonio Pascual MD PCP: Mook Kamara MD Status: REG ER Study: Chest 1 View (Portable) Date of Exam: 05/19/18 Exam# [id number] Ordering Dr: Mandy Grajeda MD STUDY: X-RAY [...] Antonio Pascual MD at 12:56 EDT Tel [phone], Service support , CC: Mook Kamara MD; Mandy Grajeda MD Top Lift Cutter: Signed PROGRESS Observed: 05/19/2018 Status: COMPLETED Source: [place] 11:27 AM [facility] REPOSITORY HNO ID: [id number] Author: Remi (Rn) Brent Service: (none) Author [...] COMPLETE W Observed: 05/19/2018 Status: F Source: [place] INTERPRETATION 11:09 AM [facility] REPOSITORY NAME : LUZ BACA PID : [id number] : 1940 Gender : Female Race : ORD : [id number] Procedure Date : May 19 2018 11:09:21 Edit Date : May 20 2018 16:08:44 Diagnosis:VENTRICULAR-PACED RHYTHM ABNORMAL ECG Confirmed by CLAY GARCIA D.O. ([id number]) on 05/20/2018 4:08:35 PM Ventricular Rate : 63 BPM Atrial Rate : 277 BPM QRS Duration : 216 ms Q-T Interval : 566 ms QTC Calculation(Bezet) : 579 ms R [place] : -81 degrees T [place] : 99 degrees Test Reason : Location : 185 : [facility] Overread By : CLAY GARCIA D.O. Edited By : CLAY GARCIA D.O. Referred By : JAMESON KAMARA Acquired by : INGRIS, PROGRESS Observed: 05/19/2018 Status: COMPLETED Source: [place] 10:40 AM [facility] REPOSITORY O ID: [id number] Author: Jameson Warner () Koffi Service: (none) Author Type: Physician Type: Progress Notes Filed: 05/19/2018 6:23 PM Note Text: Chief Complaint No chief complaint on file. HPI Luz Baca is a 77 year old female who presents here today for Hospital Discharge Follow up. Patient was admitted to [facility] with complaint of chest pain on 05/11. TRANSITION CARE MANAGEMENT (TCM) INITIAL CONTACT ? ? Provider Action/FYI: ? Please File Medication Updates ? ?Patient having occasional slight chest pressure, has not taken NTG. Instructed pt to take NTG, if chest pressure continues call marketing account executive, if chest pressure increases go to ER Slight SOB, less than before hospitalization ? Now on sliding scale insulin, states most times only taking 1 unit. ? ? Initial contact with patient post discharge, spoke to Daughter, Octavia and patient. Patient identified by name and . ? SUMMARY: -Pt discharged from [facility] on 05/13. -Follow up appointment on [...] take NTG, if chest pressure continues call marketing account executive, if chest pressure increases go to ER [...] was seen in the emergency room at [facility] with chief complaint of precordial chest pain [...] place - Cardiomegaly - Carotid artery disease ([facility]) left - Chronic kidney disease (CKD) stage G3b/A2, moderately decreased glomerular filtration rate (GFR) between 30-44 mL/min/1.73 square meter and albuminuria creatinine ratio between 30-299 mg/g ([facility]) Dr. Martin - COPD (chronic obstructive pulmonary disease) ([facility]) Dr. Cruz - Depression - Diabetes ([facility]) - Diabetic neuropathy ([facility]) - Edema - GERD (gastroesophageal reflux disease) - Gout with hyperuricemia - HH (hiatus hernia) - HOCM (hypertrophic obstructive cardiomyopathy) ([facility]) S/P Septal Myectomy in 2003. Now with LVEF 50% and mod/severe pulm HTN. - HTN (hypertension) - Hyperlipidemia - Morbid obesity with BMI of 40.0-44.9, adult ([facility]) - Sleep apnea 2011 not on CPAP, unable to tolerate mask 02/2017 - SVT (supraventricular tachycardia) ([facility]) NSVT and questionable VT in 2003 post [...] age 89, HTN - Heart Failure Mother PA - Cancer Father age 71, lung cancer [...] unspecified vessel or lesion type, unspecified whether prairie band or transplanted heart - ICD9: 414.00, ICD10: [...] MD CNOV Observed: 05/19/2018 Status: COMPLETED Source: [place] 10:40 AM [facility] REPOSITORY Office Visit (FAMPWS) LUZ BACA ([id number]) 1940 F Date Time Provider Department 05/19/18 [...] Discharge Follow up. Patient was admitted to [facility] with complaint of chest pain on 05/11. TRANSITION CARE MANAGEMENT (TCM) INITIAL CONTACT ? ? Provider Action/FYI: ? Please File Medication Updates ? ?Patient having occasional slight chest pressure, has not taken NTG. Instructed pt to take NTG, if chest pressure continues call marketing account executive, if chest pressure increases go to ER Slight SOB, less than before hospitalization ? Now on sliding scale insulin, states most times only taking 1 unit. ? ? Initial contact with patient post discharge, spoke to Daughter, Octavia and patient. Patient identified by name and . ? SUMMARY: -Pt discharged from [facility] on 05/13. -Follow up appointment on [...] take NTG, if chest pressure continues call marketing account executive, if chest pressure increases go to ER [...] was seen in the emergency room at [facility] with chief complaint of precordial chest pain [...] and albuminuria creatinine ratio between 30-299 mg/g ([facility]) Dr. Martin - COPD (chronic obstructive pulmonary disease) ([facility]) Dr. Cruz - Depression - Diabetes ([facility]) - Diabetic neuropathy ([facility]) - Edema - GERD (gastroesophageal reflux disease) - Gout with hyperuricemia - HH (hiatus hernia) - HOCM (hypertrophic obstructive cardiomyopathy) ([facility]) S/P Septal Myectomy in 2003. Now with LVEF 50% and mod/severe pulm HTN. - HTN (hypertension) - Hyperlipidemia - Morbid obesity with BMI of 40.0-44.9, adult ([facility]) - Sleep apnea 2011 not on CPAP, unable to tolerate mask 02/2017 - SVT (supraventricular tachycardia) ([facility]) NSVT and questionable VT in 2003 post [...] age 89, HTN - Heart Failure Mother PA - Cancer Father age 71, lung cancer [...] unspecified vessel or lesion type, unspecified whether prairie band or transplanted heart - ICD9: 414.00, ICD10: [...] Jameson Kamara MD Referring Provider: ISABELA LADD [[id number]] Allergies As of Date: 05/19/2018 Noted Allergy [...] unspecified vessel or lesion type, unspecified whether prairie band or transplanted heart [I25.10] Diarrhea, unspecified type [R19.7] Hospital discharge follow-up [Z09] Order(s):isosorbide mononitrate ER (IMDUR) 60 mg 24 hr tabletTake 1 tablet by mouth once daily.Disp: 30 tabletRfl: 5 C. DIFFICILE PCR [SQCDPCR] Order #: [id number] ECG COMPLETE W INTERPRETATION [ECG01] Order #: [id number] FUTURE Prescriptions as of 05/19/2018 Sig: ISOSORBIDE [...] 05/19/18 PROGRESS Observed: 05/19/2018 Status: COMPLETED Source: [place] 9:45 AM [facility] REPOSITORY HNO ID: [id number] Author: Adriel Mari MA Service: (none) Author Type: (none) Type: Progress Notes Filed: 05/19/2018 9:46 AM Note Text: Notified daughter Octavia VOSS. She will do 60 mg of Imdur. Adriel Mari MA CNPTOUTREACH Observed: 05/19/2018 Status: COMPLETED Source: [place] 12:00 AM [facility] REPOSITORY Patient Outreach (FAMPWS) LUZ BACA ([id number]) 1940 F Date Time Provider Department 05/19/18 [facility] your visit today, we recorded [...] Ma - Fully Assessed Reason for Visit: [employer]-In Office Visit [5486] Prescriptions as of 05/19/2018 Sig: X ISOSORBIDE [...] 01/23/2018 Priority: I More... SVT (supraventricular tachycardia) ([facility]) [I47.1] 01/21/2018 More... Carotid artery disease ([facility]) [I77.9] 01/22/2018 CAD (coronary artery disease) [I25.10] [...] 05/19/18 PROGRESS Observed: 05/18/2018 Status: COMPLETED Source: [place] 1:32 PM [facility] REPOSITORY O ID: [id number] Author: Adriel Mari MA Service: (none) Author Type: (none) Type: Progress Notes Filed: 05/18/2018 1:32 PM Note Text: Aren Tilley [facility] Cardiology Pool ? Can't figure out how to add note. ?Please have her continue Imdur 60 daily. ?It does not work as well when taken 30 bid. Aren Cardona MD 12 LEAD ELECTROCARDIOGRAM Observed: 05/17/2018 Status: F Source: [place] 3:26 PM [facility] REPOSITORY [facility] Cardiovascular Services [address] [place] [address] 12 Lead EKG 05/13/18 0535 MR#: [id number] Acct: [id number] Name: LUZ BACA Rep #: [id number] : 1940 77 From: Ayde Butt MD Attending Dr: Isabela Ladd DO Status: DIS IN Ordering Dr: Jesse Hunter MD Date: 05/13/18 Location: [facility] Sex: F C Admitted: 05/11/18 Test [...] Occasional PVCs Reconfirmed by KEARA COLLIER, AYDE ([id number]), publication editor JASON ALDANA ([id number]) on 05/17/2018 3:26:26 PM Referred By: Luis Wise Confirmed By:AYDE BUTT MD 05/17/18 1526 Date Ayde Butt MD CC: Mook Kamara MD; Jesse Hunter MD; Isabela Ladd DO; Luis Wise MD Signed PROGRESS Observed: 05/17/2018 Status: COMPLETED Source: [place] 11:21 AM [facility] RE[facility] HNO ID: [id number] Author: Jameson Adams) Koffi Service: (none) Author Type: Physician Type: Progress Notes Filed: 05/17/2018 11:21 AM Note Text: Reviewed. Orders placed. PROGRESS Observed: 05/17/2018 Status: COMPLETED Source: [place] 8:37 AM [facility] REPOSITORY HNO ID: [id number] Author: Remi OsheaRn) Brent Service: (none) Author Type: Registered Nurse Type: Progress Notes Filed: 05/17/2018 9:18 AM Note Text: TRANSITION CARE MANAGEMENT (TCM) INITIAL CONTACT Provider Action/FYI: Please File Medication Updates Patient having occasional slight chest pressure, has not taken NTG. Instructed pt to take NTG, if chest pressure continues call marketing account executive, if chest pressure increases go to ER Slight SOB, less than before hospitalization Now on sliding scale insulin, states most times only taking 1 unit. Initial contact with patient post discharge, spoke to Daughter, Octavia and patient. Patient identified by name and . SUMMARY: -Pt discharged from [facility] on 05/13. -Follow up appointment on [...] take NTG, if chest pressure continues call marketing account executive, if chest pressure increases go to ER [...] was seen in the emergency room at [facility] with chief complaint of precordial chest pain [...] DISCHARGE SUMMARY Observed: 05/16/2018 Status: F Source: [place] 9:45 AM [facility] REPOSITORY [facility] Medical Records Department [address] [place] [address] Discharge Summary 05/16/18 0929 MR#: [id number] Acct: [id number] Name: LUZ BACA Rep #: [id number] : 1940 77 From: Isabela Ladd DO PCP: Mook Kamara MD Status: DIS IN Y Location: PCU [id number] Discharge Date and Diagnosis Date of Admission: [...] was seen in the emergency room at [facility] with chief complaint of precordial chest pain [...] Lenny)] 3.125 mg PO BID 04/21/18 Hydrocodone/Acetaminophen [[place] 5-325 Tablet] 1 tablet PO TID PRN [...] Lenny at discharge?: Yes Done w/ Acute PA measure.: Yes Code Visit Inpatient E AND M: [id number] Disch Hosp 05/16/18 0945 <Electronically signed by Isabela Ladd DO> Date Isabela Ladd DO Cosigner Signature (if applicable): Date CC: Mook Kamara MD; Isabela Ladd DO Signed CNPTOUTREACH Observed: 05/16/2018 Status: COMPLETED Source: [place] 12:00 AM [facility] REPOSITORY Patient Outreach (FAMPWS) BACALUZ ([id number]) 1940 F Date Time Provider Department 05/16/18 REMI KENNEDY (RN) [facility] During your visit today, we recorded the following information about you: Remi Kennedy RN 05/17/2018 9:18 AM Signed TRANSITION CARE MANAGEMENT (TCM) INITIAL CONTACT Provider Action/FYI: Please File Medication Updates Patient having occasional slight chest pressure, has not taken NTG. Instructed pt to take NTG, if chest pressure continues call marketing account executive, if chest pressure increases go to ER Slight SOB, less than before hospitalization Now on sliding scale insulin, states most times only taking 1 unit. Initial contact with patient post discharge, spoke to Daughter, Octavia and patient. Patient identified by name and . SUMMARY: -Pt discharged from [facility] on 05/13. -Follow up appointment on [...] take NTG, if chest pressure continues call marketing account executive, if chest pressure increases go to ER [...] was seen in the emergency room at [facility] with chief complaint of precordial chest pain [...] MA 05/18/2018 1:32 PM Signed Aren Tilley [facility] Cardiology Pool ? Can't figure out how to add note. ?Please have her continue Imdur 60 daily. ?It does not work as well when taken 30 bid. MD Adriel Philip MA 05/19/2018 9:46 AM Signed Notified daughter Octavia VOSS. She will do 60 mg of Imdur. Adriel Jacey EMERSON Allergies As of Date: 05/16/2018 Noted Allergy [...] unspecified vessel or lesion type, unspecified whether prairie band or transplanted heart [I25.10] Gastroesophageal reflux disease, [...] DISCHARGE INSTRUCTION Observed: 05/13/2018 Status: F Source: [place] 5:48 PM [facility] REPOSITORY [facility] Medical Records Department [address] [place] [address] Instructions for Home/Discharge Instructions 05/13/18 1707 MR#: [id number] Acct: [id number] Name: LUZ BACA Rep #: [id number] : 1940 77 From: Isabela Ladd DO PCP: Mook Kamara MD Status: ADM IN ADDENDUM by Isabela Ladd DO on 05/13/18 at 1748 Additional med: Plavix 75 mg daily Date Isabela Ladd DO cc: Mook Kamara MD; Jesse Hunter MD; Ynes [...] Lenny)] 3.125 mg PO BID 04/21/18 Hydrocodone/Acetaminophen [[place] 5-325 Tablet] 1 tablet PO TID PRN [...] LEAD ELECTROCARDIOGRAM Observed: 05/13/2018 Status: F Source: [place] 1:48 PM [facility] REPOSITORY [facility] Cardiovascular Services [address] [place] [address] 12 Lead EKG 05/11/18 1741 MR#: [id number] Acct: [id number] Name: LUZ BACA Rep #: [id number] : 1940 77 From: Ayde Butt MD Attending Dr: Isabela Ladd DO Status: ADM IN Ordering Dr: Clemente Ji DO Date: 05/11/18 Location: [facility] Sex: F C Admitted: 05/11/18 Test Reason : CP ADMISSION Blood Pressure : / mmHG Vent. Rate : 078 BPM Atrial Rate : 078 BPM P-R Int : 000 ms QRS Dur : 182 ms QT Int : 504 ms P-R-T Axes : 000 252 092 degrees QTc Int : 574 ms Electronic ventricular pacemaker Occasional PVCs Confirmed by AYDE BUTT MD ([id number]), publication editor JASON ALDANA ([id number]) on 05/13/2018 1:47:26 PM Referred By: Luis Wise Confirmed By:AYDE BUTT MD 05/13/18 6137 Date Ayde Butt MD CC: Mook Kamara MD; Clemente Ji DO; Isabela Ladd DO; Luis Wise MD Signed 12 LEAD ELECTROCARDIOGRAM Observed: 05/13/2018 Status: F Source: [place] 1:35 PM [facility] REPOSITORY [facility] Cardiovascular Services [address] [address] 12 Lead EKG 05/11/18 1335 MR#: [id number] Acct: [id number] Name: LUZ BACA Rep #: [id number] : 1940 77 From: Ayde Butt MD Attending Dr: Isabela Ladd DO Status: ADM IN Ordering Dr: Luis Wise MD Date: 05/11/18 Location: [facility] Sex: F C Admitted: 05/11/18 Test Reason : Blood Pressure : / mmHG Vent. Rate : 078 BPM Atrial Rate : 078 BPM P-R Int : 000 ms QRS Dur : 186 ms QT Int : 492 ms P-R-T Axes : 000 255 098 degrees QTc Int : 560 ms Electronic ventricular pacemaker Occasional PVCs Confirmed by AYDE BUTT MD ([id number]), publication editor JASON ALDANA ([id number]) on 05/13/2018 1:34:43 PM Referred By: Luis Wise Confirmed By:AYDE BUTT MD 05/13/18 0971 Date Ayde Butt MD CC: Mook Kamara MD; Isabela Ladd DO; Luis Wise MD Signed BEDSIDE GLUCOSE Collected: 05/13/2018 Status: F Source: [place] 11:36 AM [facility] REPOSITORY TYPE CODE TESTS RESULT OUT OF REFERENCE UNITS RANGE LAB L501.080 70-110 mg/dL High BEDSIDE GLU 125 Result Comment: MANAGEMENT OF PATIENT CARE PER NURSING PROTOCOL Performed By: #### L501.080 #### [facility] [address] [facility] [place], [place] [address] BEDSIDE GLUCOSE Collected: 05/13/2018 Status: F Source: [place] 6:50 AM [facility] REPOSITORY TYPE CODE TESTS RESULT OUT OF REFERENCE UNITS RANGE LAB L501.080 70-110 mg/dL High BEDSIDE GLU 136 Result Comment: MANAGEMENT OF PATIENT CARE PER NURSING PROTOCOL Performed By: #### L501.080 #### [facility] Point of Care [address] [facility] [place] [address] PROTHROMBIN TIME W/INR Collected: 05/13/2018 Status: F Source: [place] 5:06 AM [facility] REPOSITORY TYPE CODE TESTS RESULT OUT OF RANGE REFERENCE UNITS LAB L300.4150 11.7-14.9 SECONDS High PROTIME 20.3 LAB L300.4200 Normal INR 1.7 Performed By: #### L300.3900, L300.4310, L100.0500 #### [facility] [address] [facility] [address] PARTIAL THROMBOPLAST Collected: 05/13/2018 Status: F Source: [place] TIME 5:06 AM [facility] REPOSITORY TYPE CODE TESTS RESULT OUT OF RANGE REFERENCE UNITS LAB L300.4310 24.1-36.2 Seconds Normal PTT 36.0 Performed By: #### L300.3900, L300.4310, L100.0500 #### [facility] [address] [facility] [address] CBC-COMPLETE BLOOD CNT Collected: 05/13/2018 Status: F Source: [place] NO DIFF 5:06 AM [facility] REPOSITORY TYPE CODE TESTS RESULT OUT OF [...] Performed By: #### L300.3900, L300.4310, L100.0500 #### [facility] [address] [place], [address] BASIC METABOLIC Collected: 05/13/2018 Status: F Source: [place] PROFILE (BMP) 5:06 AM [facility] REPOSITORY TYPE CODE TESTS RESULT OUT OF [...] GAP 9 Performed By: #### L500.2500 #### [facility] [address] [place], [address] BEDSIDE GLUCOSE Collected: 05/12/2018 Status: F Source: [place] 9:21 PM [facility] REPOSITORY TYPE CODE TESTS RESULT OUT OF REFERENCE UNITS RANGE LAB L501.080 70-110 mg/dL High BEDSIDE GLU 217 Result Comment: MANAGEMENT OF PATIENT CARE PER NURSING PROTOCOL Performed By: #### L501.080 #### [facility] Point of Care [address] [place] [address] BEDSIDE GLUCOSE Collected: 05/12/2018 Status: F Source: [place] 4:09 PM [facility] REPOSITORY TYPE CODE TESTS RESULT OUT OF REFERENCE UNITS RANGE LAB L501.080 70-110 mg/dL High BEDSIDE GLU 148 Result Comment: MANAGEMENT OF PATIENT CARE PER NURSING PROTOCOL Performed By: #### L501.080 #### [facility] Point of Care [address] [place] [address] CONSULTATION Observed: 05/12/2018 Status: F Source: [place] 11:06 AM [facility] REPOSITORY [facility] Medical Records Department [address] [place] [address] Consultation 05/12/18 1053 MR#: [id number] Acct: [id number] Name: LUZ BACA Rep #: [id number] : 1940 77 From: Jesse Hunter MD PCP: Mook Kamara MD Status: ADM IN Location: [place] [id number] Problem List (1) Hypertension Status: Chronic (2) [...] well. She was brought emergently to the [facility] ER where a EKG showed atrial [...] AM. Code Visit Inpatient E AND M: [id number] Init Hosp L2 05/12/18 1106 <Electronically signed by Jesse Hunter MD> Date Jesse Hunter MD Cosigner Signature (if applicable): Date CC: Mook Kamara MD; Jesse Hunter MD; Ynes De La Torre MD; Luis Wise MD Signed BEDSIDE GLUCOSE Collected: 05/12/2018 Status: F Source: [place] 10:54 AM [facility] REPOSITORY TYPE CODE TESTS RESULT OUT OF REFERENCE UNITS RANGE LAB L501.080 70-110 mg/dL High BEDSIDE GLU 209 Result Comment: MANAGEMENT OF PATIENT CARE PER NURSING PROTOCOL Performed By: #### L501.080 #### [facility] Point of [place] [address] ECHOCARDIOGRAM COMPLETE Observed: 05/12/2018 Status: F Source: [place] 10:52 AM [facility] REPOSITORY [facility] Cardiovascular Services [address] [place] [address] Echo Complete 05/12/18 08 MR#: [id number] Acct: [id number] Name: LUZ BACA Rep #: [id number] : 1940 77 From: Jesse Hunter MD Attending Dr: Isabela Ladd DO Status: ADM IN Ordering Dr: Luis Wise MD Date: 05/11/18 Location: [facility] Sex: F C Admitted: 05/11/18 Reason [...] KAMARA Performed By: Suzanne Mcdonough RDCS 05/12/18 105 Date Jesse Hunter MD CC: Mook Kamara MD; Isabela Ladd DO; Luis Wise MD Date Dictated: 05/12/18804 Date Transcribed: 05/12/181051 Top Lift Cutter: Signed BEDSIDE GLUCOSE Collected: 05/12/2018 Status: F Source: [place]I 6:59 AM [facility] REPOSITORY TYPE CODE TESTS RESULT OUT OF RANGE REFERENCE UNITS LAB L501.080 70-110 mg/dL Normal BEDSIDE GLU 87 Result Comment: MANAGEMENT OF PATIENT CARE PER NURSING PROTOCOL Performed By: #### L501.080 #### [facility] Point of Care [facility] [address] [place], [place] [address] CBC-COMPLETE BLOOD CNT Collected: 05/12/2018 Status: F Source: [place] NO DIFF 6:10 AM [facility] REPOSITORY TYPE CODE TESTS RESULT OUT OF [...] MPV 9.4 Performed By: #### L100.0500 #### [facility] [address] [place], [place], [id number] BASIC METABOLIC Collected: 05/12/2018 Status: F Source: [place] ([facility]) 6:10 AM [facility] REPOSITORY TYPE CODE TESTS RESULT OUT OF [...] Performed By: #### L500.2500, L500.4100, L501.4010 #### [facility] [address] [place], [address] LIPID PROFILE Collected: 05/12/2018 Status: F Source: [place] 6:10 AM [facility] REPOSITORY TYPE CODE TESTS RESULT OUT OF [...] Performed By: #### L500.2500, L500.4100, L501.4010 #### [facility] [address] [place], [address] TROPONIN-I Collected: 05/12/2018 Status: F Source: [place] 6:10 AM [facility] REPOSITORY TYPE CODE TESTS RESULT OUT OF RANGE REFERENCE UNITS LAB L501.4010 <0.045 ng/mL High alert 0.643 TROPONIN-I Result Comment: Critical Result(s) Called at: 07:15:45 05/12/2018 by: Rosalina Mayes to [facility] TROPONIN-I EXPECTED VALUES <0.045 Negative 0.045 - 0.590 Consistent with Cardiac Damage > OR = 0.600 Critical Value Not every elevated troponin is indicative of PA. These values should be used with clinical judgement in examining the patient's clinical picture for diagnosis. To establish a diagnosis of PA versus myocardial injury, there must be a demonstrated rise and/or fall in the troponin values, in addition to ischemic symptoms, EKG changes, new regional wall motion abnormality, and/or angiographical evidence. PLEASE NOTE: REFERENCE RANGES EDITED 18 Performed By: #### L500.2500, L500.4100, L501.4010 #### [facility] [address] [place], [address] BEDSIDE GLUCOSE Collected: 05/11/2018 Status: F Source: [place] 9:23 PM [facility] REPOSITORY TYPE CODE TESTS RESULT OUT OF RANGE REFERENCE UNITS LAB L501.080 70-110 mg/dL Normal BEDSIDE GLU 94 Result Comment: MANAGEMENT OF PATIENT CARE PER NURSING PROTOCOL Performed By: #### L501.080 #### [facility] Point of Care [address] [place] [address] TROPONIN-I Collected: 05/11/2018 Status: F Source: [place] 9:08 PM [facility] REPOSITORY Order Comment: 'TROP' Serial specimen #1, [...] Not every elevated troponin is indicative of PA. These values should be used with clinical judgement in examining the patient's clinical picture for diagnosis. To establish a diagnosis of PA versus myocardial injury, there must be a demonstrated rise and/or fall in the troponin values, in addition to ischemic symptoms, EKG changes, new regional wall motion abnormality, and/or angiographical evidence. PLEASE NOTE: REFERENCE RANGES EDITED 18 Performed By: #### L501.4010 #### [facility] [address] [place], [address] CONSULTATION Observed: 05/11/2018 Status: F Source: [place] 6:36 PM [facility] REPOSITORY [facility] Medical Records Department [address] [place] [address] Consultation 05/11/18 1833 MR#: [id number] Acct: [id number] Name: LUZ BACA Rep #: [id number] : 1940 77 From: Spencer Swartz MD PCP: Mook Kamara MD Status: ADM IN Y [id number] Problem List (1) End stage renal disease Status: Chronic Consultation - Renal 05/11/18 PCP/ Referring MD: Requesting physician: Dr Ji Primary care physician: Mook Kamara, Reason for Consultation:: ESRD - History of Present Illness History of Present Illness: The patient is a 77 year old F well known to us. H/o CKD stage 3/4. [facility]. [...] Medications Current Medications: Current Medications Hydrocodone Bitart/Acetaminophen ([place] 5mg-325mg) 1 tablet PO TID PRN PRN Reason: PAIN Albuterol Sulfate (Ventolin Aerosols) 2.5 mg INHALATION Q6HWA.RT [facility] Amiodarone HCl (Cordarone) 200 mg PO DAILYCM [facility] Apixaban (Eliquis) 5 mg PO BID [facility] Budesonide (Pulmicort Aerosol) 0.5 mg INHALATION BID.RT [facility] Carvedilol (Coreg) 3.125 mg PO BID [facility] Insulin Glargine (Lantus (Bkc)) 36 units SC QHS [facility] Insulin Glargine (Lantus (Bkc)) 50 units SC BREAKFAST [facility] Isosorbide Mononitrate (Imdur) 60 mg PO DAILY [facility] Magnesium Hydroxide (Milk Of Magnesia) 30 ml PO DAILY PRN PRN Reason: Constipation Nitroglycerin (Nitrostat) 0.4 mg SUBLINGUAL Q5M PRN PRN Reason: CARDIAC/CHEST PAIN Non-Formulary Medication (Insulin Aspart [Novolog Flexpen]) 0 - 100 units SC TIDCM [facility] Ondansetron HCl (Zofran Odt) 4 mg PO Q8H PRN PRN Reason: NAUSEA/VOMITING Pantoprazole Sodium (Protonix) 20 mg PO DAILY [facility] Senna (Senokot) 1 tablet PO QHS PRN PRN PRN Reason: stool softner Simvastatin (Zocor) 40 mg PO QHS [facility] Tramadol HCl (Ultram) 50 mg PO Q6H PRN PRN Reason: PAIN Trazodone HCl (Desyrel) 100 mg PO QHS [facility] - Past Medical History Past Medical History [...] need angiogram Anemia. WILLY with HD 05/11/18 5956 <Electronically signed by Spencer Swartz MD> Date Spencer Swartz MD Cosigner Signature (if applicable): Date CC: Mook Kamara MD; Jesse Hunter MD; Ynes De La Torre MD; Luis Wise MD Signed HISTORY AND PHYSICAL Observed: 05/11/2018 Status: F Source: [place] EXAM 5:21 PM [facility] REPOSITORY [facility] Medical Records Department [address] [place] [address] History and Physical 05/11/18 1546 MR#: [id number] Acct: [id number] Name: LUZ BACA Rep #: [id number] : 1940 77 From: Mariluz Gaffney POLYSOMNOGRAPHIC TECHNICIANDinaC PCP: Mook Kamara MD Status: ADM IN Y Location: [facility] [id number] <Mariluz Gaffney - Last Filed: 05/11/18 16:10> [...] leg. 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 Hyperlipidemia-continue statin. 6. Type 2 diabetes tbwsnoru-Pyqo-Auqss before meals at bedtime. Continue home Lantus [...] catheterization a few years ago at the [facility] was apparently negative. 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 Code Visit Inpatient E AND M: [id number] Init Hosp L3 05/11/18 1611 <Electronically signed by Mariluz LNATIGUAC> Date Mariluz Gaffney POLYSOMNOGRAPHIC TECHNICIAN-C 05/11/18 1721<Electronically signed by Clemente Ji DO> Cosigner Signature: Date (if applicable) Clemente Ji DO CC: POLYSOMNOGRAPHIC TECHNICIAN-C Mariluz Gaffney; Mook Kamara MD; Clemente Ji DO Signed BEDSIDE GLUCOSE Collected: 05/11/2018 Status: F Source: [place] 5:16 PM [facility] REPOSITORY TYPE CODE TESTS RESULT OUT OF RANGE REFERENCE UNITS LAB L501.080 70-110 mg/dL Normal BEDSIDE GLU 79 Result Comment: MANAGEMENT OF PATIENT CARE PER NURSING PROTOCOL Performed By: #### L501.080 #### [facility] Point of Care [facility] [place] [address] TROPONIN-I Collected: 05/11/2018 Status: F Source: [place] 4:50 PM [facility] REPOSITORY Order Comment: 'TROP' Serial specimen #1, #2 or #3: 2 TYPE CODE TESTS RESULT OUT OF RANGE REFERENCE UNITS LAB L501.4010 <0.045 ng/mL High alert 0.614 TROPONIN-I Result Comment: Critical Result(s) Called at: 19:22:41 05/11/2018 by: JONATHAN ROBERTS to laura goodson rn in u TROPONIN-I EXPECTED VALUES <0.045 Negative 0.045 - 0.590 Consistent with Cardiac Damage > OR = 0.600 Critical Value Not every elevated troponin is indicative of PA. These values should be used with clinical judgement in examining the patient's clinical picture for diagnosis. To establish a diagnosis of PA versus myocardial injury, there must be a demonstrated rise and/or fall in the troponin values, in addition to ischemic symptoms, EKG changes, new regional wall motion abnormality, and/or angiographical evidence. PLEASE NOTE: REFERENCE RANGES EDITED 18 Performed By: #### L501.4010 #### [facility] [address] [place], [address] EMERGENCY DEPARTMENT Observed: 05/11/2018 Status: F Source: [place] SUMMARY 3:07 PM [facility] REPOSITORY [facility] Medical Records Department [address] [place] [address] Emergency Department Summary 05/11/18 1500 MR#: [id number] Acct: [id number] Name: LUZ BACA Rep #: [id number] : 1940 77 From: Luis Wise MD PCP: Mook Kamara MD Status: REG ER - ER Visit Summary Date of Service: 05/11/18 Chief Complaint: Sharp midsternal chest discomfort during dialysis with nausea and diaphoresis. Patient states she had similar presentation when she was diagnosed with PA. History of Present Illness: The patient is a 77 F midsternal chest pain during dialysis. This was associated with nausea and diaphoresis. She denied radiation. She did report numbness in her left upper extremity. She is status post 2 vessel bypass surgery and has had 9 stents placed. The surgery was done in [place]. She is not a good informant. She [...] coronary disease This note was generated with [employer] software. It may contain incorrect words, spelling, [...] problems, contact your Primary Care Provider. Call [facility] ([phone]) or report to the closest Emergency Room. Call 911 if necessary. 05/11/18 1507 <Electronically signed by Luis Wise MD> Date Luis Wise MD Cosigner Signature (If Indicated): Date CC: Mook Kamara MD; Jesse Hunter MD CBC W/DIFF, AUTOMATED Collected: 05/11/2018 Status: F Source: [place] 2:05 PM [facility] REPOSITORY TYPE CODE TESTS RESULT OUT OF [...] Lymph 1.15 Performed By: #### L100.0100 #### [facility] [address] [place], [place], [address] BASIC METABOLIC Collected: 05/11/2018 Status: F Source: [place] PROFILE (BMP) 2:05 PM [facility] REPOSITORY TYPE CODE TESTS RESULT OUT OF [...] 5 Performed By: #### L500.2500, L501.4010 #### [facility] [address] [place], [place], [address] TROPONIN-I Collected: 05/11/2018 Status: F Source: [place] 2:05 PM [facility] REPOSITORY TYPE CODE TESTS RESULT OUT OF RANGE REFERENCE UNITS LAB L501.4010 <0.045 ng/mL High alert 0.716 TROPONIN-I Result Comment: Critical Result(s) Called at: 14:36:46 05/11/2018 by: Rosalina Marie TROPONIN-I EXPECTED VALUES <0.045 Negative 0.045 - 0.590 Consistent with Cardiac Damage > OR = 0.600 Critical Value Not every elevated troponin is indicative of PA. These values should be used with clinical judgement in examining the patient's clinical picture for diagnosis. To establish a diagnosis of PA versus myocardial injury, there must be a demonstrated rise and/or fall in the troponin values, in addition to ischemic symptoms, EKG changes, new regional wall motion abnormality, and/or angiographical evidence. PLEASE NOTE: REFERENCE RANGES EDITED 18 Performed By: #### L500.2500, L501.4010 #### [facility] [address] [place], [place], [address] PROTHROMBIN TIME W/INR Collected: 05/11/2018 Status: F Source: [place] 2:05 PM [facility] REPOSITORY TYPE CODE TESTS RESULT OUT OF RANGE REFERENCE UNITS LAB L300.4150 11.7-14.9 SECONDS High PROTIME 20.5 LAB L300.4200 Normal INR 1.8 Performed By: #### L300.3900, L300.4310 #### [facility] [address] [place], [address] PARTIAL THROMBOPLAST Collected: 05/11/2018 Status: F Source: [place] TIME 2:05 PM [facility] REPOSITORY TYPE CODE TESTS RESULT OUT OF RANGE REFERENCE UNITS LAB L300.4310 24.1-36.2 Seconds Normal PTT 36.0 Performed By: #### L300.3900, L300.4310 #### [facility] [address] [place], [address] CHEST 1 VIEW Observed: 05/11/2018 Status: F Source: [place] (PORTABLE) 1:43 PM [facility] REPOSITORY [facility] Imaging Services [address] [place] [address] Chest 1 View (Portable) MR#: [id number] Acct: [id number] Name: LUZ BACA Rep #: [id number] : 1940 F 77 From: Juan Francisco [place] MD PCP: Mook Kamara MD Status: REG ER Study: Chest 1 View (Portable) Date of Exam: 05/11/18 Exam# [id number] Ordering Dr: Luis Wise MD STUDY: X-RAY [...] CC: Mook Kamara MD; Luis Wise MD Top Lift Cutter: Signed CBC AND DIFFERENTIAL Collected: 05/10/2018 Status: F Source: [place] 5:23 PM [facility] REPOSITORY TYPE CODE TESTS RESULT [...] k/uL Abs Lymph 1.83 LAB AMONO % [place]% 10.3 LAB AAMONO <0.87 k/uL Abs [place] 0.72 LAB AEOS % Eosin% 3.0 LAB AAEOS <0.46 k/uL Abs Eosin 0.21 LAB ABASO % Baso% 0.7 LAB AABASO <0.11 k/uL Abs Baso 0.05 LAB AUNRBC 0 /100 WBC NRBCs 0.0 LAB ABNRBC <0.01 k/uL Absolute nRBC <0.01 LAB DTYP DTYPE Auto Diff Performed By: #### CBCDIF #### [facility] [address] [place] [place], [place] [address] JONA Observed: 05/10/2018 Status: COMPLETED Source: [place] 12:00 AM [facility] REPOSITORY Telephone (FAMPWS) LUZ BACA Salvador ([id number]) 1940 F Date Time Provider Department 05/10/18 [facility] During [facility] today, we recorded the following information about you: Ronald Dias 05/10/2018 2:18 PM Signed Cristina / [employer] [facility] calls stating she had heard patient [...] L O2 . Any orders? Adriel Pringle APRN.ELÍAS 05/10/2018 4:20 PM Signed Discussed with Dr. [...] way should go to ED. Telephone on 07/24/18 -CBC + DIFF Adriel Pringle APRN.ELÍAS Kennedy [...] OTC Fe, states no. Remi Kennedy RN Hotshot Superintendent plan for next outreach: Will follow up one week Signature Remi Kennedy RN May 10, 2018 Adriel Prinlge APRN.ELÍAS 05/10/2018 9:29 PM Signed Reviewed. Adriel [...] [R19.5] Order(s):CBC + DIFF [SQCBCDIF] Order #: [id number] FUTURE Prescriptions as of 05/10/2018 Sig: BUMETANIDE [...] 05/10/18 PROGRESS Observed: 05/04/2018 Status: COMPLETED Source: [place] 3:01 PM [facility] RE[facility]IT[facility] HNO ID: [id number] Author: Remi (Rn) Brent Service: (none) Author Type: Registered Nurse Type: Progress Notes Filed: 05/04/2018 3:02 PM Note Text: PRIMARY CARE COORDINATION QUICK NOTE Provider Action/FYI Wheelchair script, face to face notes and PT/OT evals faxed to [facility] Patient identified by name and date . Received PT/OT evaluations from [facility] C DIFFICILE PCR Collected: 05/04/2018 Status: F Source: [place] 11:29 AM [facility] REPOSITORY TYPE CODE TESTS RESULT OUT OF REFERENCE UNITS RANGE LAB CDFRES C difficile PCR Specimen rejected. Formed stool received, only non-formed stool is acceptable for C. difficile toxin assay. Result Comment: HO[place] Observed: 05/04/2018 Status: F Source: [place] FECAL LACTOFERRIN 9:30 AM [facility] REPOSITORY Sp. Request/Comment: - Specimen received in sterile container. Test Result - Positive for lactoferrin, which may indicate presence of fecal white blood cells Performed By: #### STLWBC #### [facility] [address] [place], [place] [address] ENTERIC BACT PNL PCR Collected: 05/04/2018 Status: F Source: [place] 9:30 AM [facility] REPOSITORY TYPE CODE TESTS RESULT OUT OF REFERENCE UNITS RANGE LAB PCRSHG Shigella/EIEC Not Detected DNA LAB PCRCMP Campy jejun/coli DNA Not Detected LAB PCRSTX Shiga toxin gene(s) Not Detected LAB PCRSAL Salmonella spp. Not Detected DNA Performed By: #### STLPCR #### [facility] [employer] [address] [id number] FECAL OCCULT BLD Collected: 05/04/2018 Status: F Source: [place] TST 9:30 AM [facility] REPOSITORY TYPE CODE TESTS RESULT OUT OF RANGE REFERENCE UNITS LAB IFO Negative Abnormal Alert Immuno Positive FOB Result Comment: This test was developed and its performance characteristics determined by [facility]'s [facility] [place] ([facility]). It has not been cleared or approved by the FDA. -[facility] is regulated under CLIA as qualified to perform high-complexity testing. This test is used for clinical purposes. It should not be regarded as investigational or for research. Performed By: #### IFOBT #### [facility] [address] [id number] CBC AND DIFFERENTIAL Collected: 05/03/2018 Status: F Source: [place] 12:08 PM [facility] REPOSITORY TYPE CODE TESTS RESULT OUT [...] k/uL Abs Lymph 1.46 LAB AMONO % [place]% 10.4 LAB AAMONO <0.87 k/uL Abs [place] 0.67 LAB AEOS % Eosin% 3.9 LAB AAEOS <0.46 k/uL Abs Eosin 0.25 LAB ABASO % Baso% 0.9 LAB AABASO <0.11 k/uL Abs Baso 0.06 LAB AUNRBC 0 /100 WBC NRBCs 0.0 LAB ABNRBC <0.01 k/uL Absolute nRBC <0.01 LAB DTYP DTYPE Auto Diff Performed By: #### CBCDIF #### [facility] [address] [place], [place] [address] PROGRESS Observed: 05/03/2018 Status: COMPLETED Source: [place] 11:31 AM [facility] REPOSITORY HNO ID: [id number] Author: Remi Briseno) Brent Service: (none) Author [...] for home PCC Interventions: TC nia Marcelo, Hydrodynamics Professor at [facility], asked to fax OT and PT notes on patient because we are trying to get a wheelchair for patient, she will fax. Next Office Visit: Visit date not found Plan For Next Call: One week Remi Kennedy RN May 03, 2018 PROGRESS Observed: 05/03/2018 Status: COMPLETED Source: [place] 11:28 AM [facility] REPOSITORY HNO ID: [id number] Author: Adriel Pringle Service: (none) Author Type: Nurse Practitioner Type: Progress Notes Filed: 05/04/2018 10:41 AM Note Text: 05/03/2018 Patient presents with: ER F/U: chest pain SUBJECTIVE: This is a 77 year old that is here today for Hospital follow up. 04/21/18- 04/22/18. She was initially seen in [place] ER for complaints of CP and they were concerned for pneumonia so treated her with levaquin and vanco and was sent to [facility] ER. When she got to that [...] mentions that attempts have been made through [employer] and homecare, but they were not successful [...] Diagnosis Date - Arthritis - Atrial fibrillation ([facility]) - CAD (coronary artery disease) stents x9, defibrillator, CABG. Seeing Dr. Cardona - Cardiac defibrillator in place - Cardiomegaly - Carotid artery disease ([facility]) left - Chronic kidney disease (CKD) stage G3b/A2, moderately decreased glomerular filtration rate (GFR) between 30-44 mL/min/1.73 square meter and albuminuria creatinine ratio between 30-299 mg/g ([facility]) Dr. Martin - COPD (chronic obstructive pulmonary disease) ([facility]) Dr. Cruz - Depression - Diabetes ([facility]) - Diabetic neuropathy ([facility]) - Edema - GERD (gastroesophageal reflux disease) - Gout with hyperuricemia - HH (hiatus hernia) - HOCM (hypertrophic obstructive cardiomyopathy) ([facility]) S/P Septal Myectomy in 2003. Now with LVEF 50% and mod/severe pulm HTN. - HTN (hypertension) - Hyperlipidemia - Morbid obesity with BMI of 40.0-44.9, adult ([facility]) - Sleep apnea 2011 not on CPAP, unable to tolerate mask 02/2017 - SVT (supraventricular tachycardia) ([facility]) NSVT and questionable VT in 2003 post [...] see above - STANDARD WHEELCHAIR Adriel Pringle APRN.CHIEF MECHANICAL ENGINEER LATONIAOV Observed: 05/03/2018 Status: COMPLETED Source: [place] 10:20 AM [facility] REPOSITORY Office Visit (FAMPWS) LUZ BACA ([id number]) 1940 F Date Time Provider Department 05/03/18 [...] 04/21/18- 04/22/18. She was initially seen in [place] ER for complaints of CP and they were concerned for pneumonia so treated her with levaquin and vanco and was sent to [facility] ER. When she got to that [...] mentions that [facility] and homecare, but they were not successful [...] Diagnosis Date - Arthritis - Atrial fibrillation ([facility]) - CAD (coronary artery disease) stents x9, defibrillator, CABG. Seeing Dr. Cardona - Cardiac defibrillator in place - Cardiomegaly - Carotid artery disease ([facility]) left - Chronic kidney disease (CKD) stage G3b/A2, moderately decreased glomerular filtration rate (GFR) between 30-44 mL/min/1.73 square meter and albuminuria creatinine ratio between 30-299 mg/g ([facility]) Dr. Martin - COPD (chronic obstructive pulmonary disease) ([facility]) Dr. Cruz - Depression - Diabetes ([facility]) - Diabetic neuropathy ([facility]) - Edema - GERD (gastroesophageal reflux disease) - Gout with hyperuricemia - HH (hiatus hernia) - HOCM (hypertrophic obstructive cardiomyopathy) ([facility]) S/P Septal Myectomy in 2003. Now with LVEF 50% and mod/severe pulm HTN. - HTN (hypertension) - Hyperlipidemia - Morbid obesity with BMI of 40.0-44.9, adult ([facility]) - Sleep apnea 2011 not on CPAP, unable to tolerate mask 02/2017 - SVT (supraventricular tachycardia) ([facility]) NSVT and questionable VT in 2003 post [...] - see above - STANDARD WHEELCHAIR Adriel Anreginald, REJI.CHIEF MECHANICAL ENGINEER Referring Provider: SELF [200] Allergies As of [...] [R42] Order(s):C. DIFFICILE PCR [SQCDPCR] Order #: [id number] ENTERIC BACTERIAL PANEL BY PCR [SQSTLPCR] Order #: [id number] FUTURE FECAL OCCULT BLOOD TEST [SQIFOBT] Order #: [id number] FUTURE FECAL LACTOFERRIN/LEUKOCYTES [SQFECWBC] Order #: [id number] CBC + DIFF [SQCBCDIF] Order #: [id number] FUTURE STANDARD WHEELCHAIR [[id number]] Order #: [id number] bumetanide (BUMEX) 2 mg tabletTake 1.5 tablets [...] 01/23/2018 Priority: I More... SVT (supraventricular tachycardia) ([facility]) [I47.1] 01/21/2018 More... Carotid artery disease ([facility]) [I77.9] 01/22/2018 CAD (coronary artery disease) [I25.10] [...] 05/04/18 LUDA Observed: 05/03/2018 Status: COMPLETED Source: [place] 12:00 AM [facility] REPOSITORY Patient Outreach (FAMPWS) LUZ BACA ([id number]) 1940 F Date Time Provider Department 05/03/18 [...] for home PCC Interventions: TC nia Marcelo, Hydrodynamics Professor at [facility], asked to fax OT and PT notes [...] face notes and PT/OT evals faxed to [facility] Patient identified by name and date . Received PT/OT evaluations from [facility] Allergies As of Date: 05/03/2018 Noted Allergy [...] Ma - Fully Assessed Reason for Visit: [employer] Chronic Care [0807] Prescriptions as of 05/03/2018 Sig: X SIMVASTATIN [...] 04/28/2018 Status: F Source: [place] 2:16 PM [facility] REPOSITORY [facility] Cardiovascular Services [address] [place] [address] 12 Lead EKG 04/21/18 2055 MR#: [id number] Acct: [id number] Name: LUZ BACA Rep #: [id number] : 1940 77 From: Ayde Butt MD Attending Dr: Moo Mackey MD Status: DIS JUAN DANIEL Ordering Dr: Jhon Mejia DO Date: 04/21/18 Location: [facility] Sex: F C Admitted: 04/21/18 Test Reason : CHEST PAIN Blood Pressure : / mmHG Vent. Rate : 066 BPM Atrial Rate : 068 BPM P-R Int : 000 ms QRS Dur : 202 ms QT Int : 570 ms P-R-T Axes : 000 -79 100 degrees QTc Int : 597 ms Ventricular-paced rhythm Abnormal ECG Confirmed by KEARA COLLIER, AYDE ([id number]), publication editor JASON ALDANA ([id number]) on 04/28/2018 2:15:31 PM Referred By: PRETTY Confirmed By:AYDE BUTT MD 04/28/18 1415 Date Ayde Butt MD CC: Kimberly Mejia; Mook Kamara MD; Moo Mackey MD Signed 12 LEAD ELECTROCARDIOGRAM Observed: 04/28/2018 Status: F Source: [place] 2:15 PM [facility] REPOSITORY [facility] Cardiovascular Services [address] [place] [address] 12 Lead EKG 04/22/18 0532 MR#: [id number] Acct: [id number] Name: LUZ BACA Rep #: [id number] : 1940 77 From: Ayde Butt MD Attending Dr: Moo Mackey MD Status: DIS JUAN DANIEL Ordering Dr: Moo Mackey MD Date: 04/22/18 Location: [facility] Sex: F C Admitted: 04/21/18 Test Reason : AM EKG Blood Pressure : / mmHG Vent. Rate : 066 BPM Atrial Rate : 070 BPM P-R Int : 000 ms QRS Dur : 218 ms QT Int : 574 ms P-R-T Axes : 000 -77 104 degrees QTc Int : 601 ms Ventricular-paced rhythm Abnormal ECG Confirmed by AYDE BUTT MD ([id number]), publication editor JASON ALDANA ([id number]) on 04/28/2018 2:15:09 PM Referred By: PRETTY Confirmed By:AYDE BUTT MD 04/28/18 1415 Date Ayde Butt MD CC: Mook Kamara MD; Moo Mackey MD Signed 12 LEAD ELECTROCARDIOGRAM Observed: 04/26/2018 Status: F Source: [place] 1:13 PM [facility] REPOSITORY [facility] Cardiovascular Services [address] [place] [address] 12 Lead EKG 04/21/18 0551 MR#: [id number] Acct: [id number] Name: LUZ BACA Rep #: [id number] : 1940 77 From: Parker Cosby MD Attending Dr: Moo Mackey MD Status: DIS JUAN DANIEL Ordering Dr: Jhon Mejia DO Date: 04/21/18 Location: [facility] Sex: F C Admitted: 04/21/18 Test [...] now Present Confirmed by PARKER COSBY MD ([id number]), publication editor JASON ALDANA ([id number]) on 04/26/2018 1:12:47 PM Referred By: DR MEJIA Confirmed By:PARKER COSBY MD 04/26/18 1312 Date Parker Cosby MD CC: Kimberly Mejia; Mook Kamara MD; Moo Mackey MD Signed DISCHARGE SUMMARY Observed: 04/22/2018 Status: F Source: [place] 3:24 PM [facility] REPOSITORY [facility] Medical Records Department [address] [place] [address] Discharge Summary 04/21/18 0948 MR#: [id number] Acct: [id number] Name: LUZ RUSH Rep #: [id number] : 1940 77 From: Moo Mackey MD PCP: Mook Kamara MD Status: ADM JUAN DANIEL Y Location: [place] [address] ADDENDUM by Moo Mackey MD on 04/22/18 [...] respiratory failure with hypoxemia was admitted from [facility] after she had midsternal chest pain [...] pending Prior to that, she was in [facility] for chest pain and CHF in [...] months. From there she was discharged to [facility] from where she was recently discharged to [...] and ESRD on hemodialysis. Discussed with her marketing account executive, Dr. Fam. According to him, she had [...] 1.8. 2. ESRD on hemodialysis: Discussed with equipment installer Dr. Swartz. Patient is on [employer] during dialysis session. He further agreed to follow-up patient's vitamin D and bone mineral disease including osteoporosis and address it. Follow-up with equipment installer in 2 weeks. Pneumonia ruled out: I do not appreciate signs and symptoms of pneumonia. Urinary antigens for strep and Legionella are negative. Empirically, she had Levaquin and vancomycin [facility] does not need antibiotic today. Sputum [...] daughter Octavia at the bedside. Follow-up with equipment installer regarding bone mineral disease, osteoporosis and dialysis [...] Lenny)] 3.125 mg PO BID 04/21/18 Hydrocodone/Acetaminophen [[place] 5-325 Tablet] 1 tablet PO TID PRN [...] applicable Code Visit OBSV E AND M: 36717 Observation care discharge 04/22/18 7952 <Electronically signed by Moo Mackey MD> Date Moo Mackey MD Cosigner Signature (if applicable): Date CC: Mook Kamara MD; Moo Mackey MD Signed BEDSIDE GLUCOSE Collected: 04/22/2018 Status: F Source: [place] 1:17 PM [facility] REPOSITORY TYPE CODE TESTS RESULT OUT OF REFERENCE UNITS RANGE LAB L501.080 70-110 mg/dL High BEDSIDE GLU 151 Result Comment: MANAGEMENT OF PATIENT CARE PER NURSING PROTOCOL Performed By: #### L501.080 #### [facility] Point of Care [address] [place] [address] DISCHARGE INSTRUCTION Observed: 04/22/2018 Status: F Source: [place] 11:55 AM [facility] REPOSITORY [facility] Medical Records Department [address] [place] [address] Instructions for Home/Discharge Instructions 04/22/18 1000 MR#: [id number] Acct: [id number] Name: ANNEMARIE SAMFARHEENLUZ G Rep #: [id number] : 1940 77 From: Moo Mackey MD [...] Lenny)] 3.125 mg PO BID 04/21/18 Hydrocodone/Acetaminophen [[place] 5-325 Tablet] 1 tablet PO TID PRN [...] 04/22/2018 Status: F Source: [place] 10:29 AM [facility] REPOSITORY [facility] Medical Records Department [address] [place] [address] Consultation 04/22/18 1018 MR#: [id number] Acct: [id number] Name: LUZ RUSH Rep #: [id number] : 1940 77 From: Spencer Swartz MD PCP: Mook Kamara MD Status: ADM JUAN DANIEL Y Location: [place] [address] Problem List (1) End stage renal disease [...] 2018. [facility]uresis was attempted but [...] 04/21/18 22:27 Dose: 650 mg Hydrocodone Bitart/Acetaminophen ([place] 5mg-325mg) 1 tablet PO TID PRN PRN Reason: PAIN Last Admin: 04/21/18 21:20 Dose: 1 tablet Albuterol Sulfate (Ventolin Aerosols) 2.5 mg INHALATION Q2H PRN PRN PRN Reason: SHORTNESS OF BREATH Albuterol/Ipratropium (Duoneb) 3 ml INHALATION Q6H.RT [facility] Last Admin: 04/22/18 07:02 Dose: Not Given Amiodarone HCl (Cordarone) 200 mg PO DAILY [facility] Last Admin: 04/21/18 09:44 Dose: 200 mg Apixaban (Eliquis) 5 mg PO BID [facility] Last Admin: 04/21/18 22:27 Dose: 5 mg Bumetanide (Bumex) 0.5 mg PO BID [facility] Last Admin: 04/21/18 23:39 Dose: 0.5 mg Bumetanide (Bumex) 2 mg PO BID [facility] Last Admin: 04/21/18 23:38 Dose: 2 mg Carvedilol (Coreg) 3.125 mg PO BID [facility] Last Admin: 04/21/18 23:39 Dose: 3.125 mg Guaifenesin (Mucinex) 1,200 mg PO BID [facility] Last Admin: 04/21/18 22:27 Dose: 1,200 mg Ciprofloxacin (Cipro) 400 mg in 200 mls @ 200 mls/hr IV Q24 [facility] Last Admin: 04/21/18 06:53 Dose: 200 mls/hr Insulin Human Lispro (Humalog Kwikpen (Bkc)) 0 unit SC ACHS [facility] PRN Reason: Protocol Last Admin: 04/21/18 22:34 Dose: 2 u Isosorbide Mononitrate (Imdur) 60 mg PO DAILY [facility] Last Admin: 04/21/18 09:44 Dose: 60 mg Magnesium Hydroxide (Milk Of Magnesia) 30 ml PO DAILY PRN PRN Reason: Constipation Metoclopramide HCl (Metoclopramide Hcl) 5 mg PO TID [facility] Last Admin: 04/22/18 05:29 Dose: 5 mg Nitroglycerin (Nitrostat) 0.4 mg SUBLINGUAL Q5M PRN PRN Reason: CARDIAC/CHEST PAIN Last Admin: 04/21/18 21:01 Dose: 0.4 mg Ondansetron HCl (Zofran) 4 mg IV Q8H PRN PRN PRN Reason: NAUSEA Simvastatin (Zocor) 40 mg PO QHS [facility] Last Admin: 04/21/18 22:28 Dose: 40 mg Sodium Chloride () 5 - 15 ml IV UD PRN PRN Reason: SALINE FLUSH Sodium Chloride () 5 - 30 ml IV UD PRN PRN Reason: SALINE FLUSH Trazodone HCl (Desyrel) 100 mg PO QHS [facility] Last Admin: 04/21/18 22:27 Dose: 100 mg [...] no reversible ischemia. Dr Lepe is her marketing account executive. ROMÁN, HD dependent. has been dialysis dependent [...] STRESS REPORT Observed: 04/22/2018 Status: F Source: [place] 9:05 AM [facility] REPOSITORY [facility] Cardiovascular Services [address] [place] [address] MR#: [id number] Acct: [id number] Name: LUZ RUSH Rep #: [id number] : 1940 77 From: Parker Cosby MD [...] MD Date Dictated: 04/22/18900 Date Transcribed: 04/22/18900 Top Lift Cutter: CO Signed BEDSIDE GLUCOSE Collected: 04/22/2018 Status: F Source: [place] 6:15 AM [facility] REPOSITORY TYPE CODE TESTS RESULT OUT OF REFERENCE UNITS RANGE LAB L501.080 70-110 mg/dL High BEDSIDE GLU 193 Result Comment: MANAGEMENT OF PATIENT CARE PER NURSING PROTOCOL Performed By: #### L501.080 #### [facility] Point of Care [facility] [place], [place] [address] CBC W/DIFF, AUTOMATED Collected: 04/22/2018 Status: F Source: [place] 5:20 AM [facility] REPOSITORY TYPE CODE TESTS RESULT OUT OF [...] Lymph 0.98 Performed By: #### L100.0100 #### [facility] [address] [facility]. [place], [place], [address] PROTHROMBIN TIME W/INR Collected: 04/22/2018 Status: F Source: [place] 5:20 AM [facility] REPOSITORY TYPE CODE TESTS RESULT OUT OF RANGE REFERENCE UNITS LAB L300.4150 11.7-14.9 SECONDS High PROTIME 20.7 LAB L300.4200 Normal INR 1.8 Performed By: #### L300.3900, L300.4310 #### [facility] [address] [facility] [facility] [address] PARTIAL THROMBOPLAST Collected: 04/22/2018 Status: F Source: [place] TIME 5:20 AM [facility] REPOSITORY TYPE CODE TESTS RESULT OUT OF RANGE REFERENCE UNITS LAB L300.4310 24.1-36.2 Seconds Normal PTT 34.9 Performed By: #### L300.3900, L300.4310 #### [facility] [address] [place], [address] BASIC METABOLIC Collected: 04/22/2018 Status: F Source: [place] PROFILE (BMP) 5:20 AM [facility] REPOSITORY TYPE CODE TESTS RESULT OUT OF [...] 8 Performed By: #### L500.2500, L501.5200 #### [facility] [address] [facility] [place], [address] MAGNESIUM Collected: 04/22/2018 Status: F Source: [place] 5:20 AM [facility] REPOSITORY TYPE CODE TESTS RESULT OUT OF RANGE REFERENCE UNITS LAB L501.5200 1.6-2.6 mg/dL Normal MG 1.8 Performed By: #### L500.2500, L501.5200 #### [facility] [address] [place], [address] BEDSIDE GLUCOSE Collected: 04/21/2018 Status: F Source: [place] 10:24 PM [facility] REPOSITORY TYPE CODE TESTS RESULT OUT OF REFERENCE UNITS RANGE LAB L501.080 70-110 mg/dL High BEDSIDE GLU 248 Result Comment: MANAGEMENT OF PATIENT CARE PER NURSING PROTOCOL Performed By: #### L501.080 #### [facility] Point of Care [address] [place] [address] BEDSIDE GLUCOSE Collected: 04/21/2018 Status: F Source: [place] 4:13 PM [facility] REPOSITORY TYPE CODE TESTS RESULT OUT OF REFERENCE UNITS RANGE LAB L501.080 70-110 mg/dL High BEDSIDE GLU 224 Result Comment: MANAGEMENT OF PATIENT CARE PER NURSING PROTOCOL Performed By: #### L501.080 #### [facility] Point of Care [address] [place], [place] [address] Observed: 04/21/2018 Status: F Source: [place] RESPIRATORY PANEL 1:30 PM [facility] MOLECULAR REPOSITORY Order Date: 04/21/18 Has pt [...] acid amplification Performed By: #### M100.638 #### [facility] [address] [facility] [place], [place], [address] BEDSIDE GLUCOSE Collected: 04/21/2018 Status: F Source: [place] 11:06 AM [facility] REPOSITORY TYPE CODE TESTS RESULT OUT OF REFERENCE UNITS RANGE LAB L501.080 70-110 mg/dL High BEDSIDE GLU 180 Result Comment: MANAGEMENT OF PATIENT CARE PER NURSING PROTOCOL Performed By: #### L501.080 #### [facility] Point of Care [address] [place], [place] [address] TROPONIN-I Collected: 04/21/2018 Status: F Source: [place] 9:15 AM [facility] REPOSITORY Order Comment: 'TROP' Serial specimen #1, #2 or #3: 3 TYPE CODE TESTS RESULT OUT OF RANGE REFERENCE UNITS LAB L501.4010 <0.045 ng/mL High 0.581 TROPONIN-I Result Comment: TROPONIN-I EXPECTED VALUES <0.045 Negative 0.045 - 0.590 Consistent with Cardiac Damage > OR = 0.600 Critical Value Not every elevated troponin is indicative of PA. These values should be used with clinical judgement in examining the patient's clinical picture for diagnosis. To establish a diagnosis of PA versus myocardial injury, there must be a demonstrated rise and/or fall in the troponin values, in addition to ischemic symptoms, EKG changes, new regional wall motion abnormality, and/or angiographical evidence. PLEASE NOTE: REFERENCE RANGES EDITED 18 Performed By: #### L501.4010 #### [facility] [address] [facility] [place], [address] Observed: 04/21/2018 Status: F Source: [place] CULTURE, SPUTUM 7:40 AM [facility] REPOSITORY Gram Stain Specimen is mostly saliva and as such may not represent an accurate assesment of the patients' pulmonary/respiratory condition. Acceptable Specimen? No (>25 Epithelial cells per/lpf) Gram Stain 3+ White Blood Cells 3+ Epithelial cells 4+ Gram positive cocci 4+ Gram negative rods Resp. Culture Test not performed Performed By: #### M100.0800 #### [facility] [address] [facility] [place], [address] BEDSIDE GLUCOSE Collected: 04/21/2018 Status: F Source: [place] 6:53 AM [facility] REPOSITORY TYPE CODE TESTS RESULT OUT OF REFERENCE UNITS RANGE LAB L501.080 70-110 mg/dL High BEDSIDE GLU 127 Result Comment: MANAGEMENT OF PATIENT CARE PER NURSING PROTOCOL Performed By: #### L501.080 #### [facility] Point of Care [address] [facility] [place] [address] TROPONIN-I Collected: 04/21/2018 Status: F Source: [place] 6:15 AM [facility] REPOSITORY Order Comment: 'TROP' Serial specimen #1, [...] Not every elevated troponin is indicative of PA. These values should be used with clinical judgement in examining the patient's clinical picture for diagnosis. To establish a diagnosis of PA versus myocardial injury, there must be a demonstrated rise and/or fall in the troponin values, in addition to ischemic symptoms, EKG changes, new regional wall motion abnormality, and/or angiographical evidence. PLEASE NOTE: REFERENCE RANGES EDITED 18 Performed By: #### L501.4010 #### [facility] [address] [place], [place], [id number] URINALYSIS, COMPLETE Collected: 04/21/2018 Status: F Source: [place] 5:28 AM [facility] REPOSITORY Order Comment: How was Urine Obtained? PROCESSING OPERATOR TO SPECIFY TYPE CODE TESTS RESULT OUT [...] 5-10 SEEN Performed By: #### L400.0001 #### [facility] [address] [place], [address] STREP Observed: 04/21/2018 Status: F Source: [place] PNEUMONIAE ANTIG(UR,CSF) 5:28 AM [facility] REPOSITORY S pneumo Ag URINE INTERPRETATION Negative Urine Presumptive negative for pneumococcal pneumonia, suggesting no current or recent pneumococcal infection. Infection due to S pneumoniae cannot be ruled out since the antigen present in the sample may be below the detection limit of the test. Strep pneumo Test Negative URINE (See interpretation below) Performed By: #### M300.4600 #### [facility] [address] [place], [address] Observed: 04/21/2018 Status: F Source: [place] LEGIONELLA ANTIGEN 5:28 AM [facility] URINE REPOSITORY Legionella, UR Legionella Antigen result interpretation: Negative Presumptive negative for Legionella pneumophila serogroup 1 antigen in urine, suggesting no recent or current infection. Legionella Ag, Urine Negative (See interpretation below) Performed By: #### M300.4500 #### [facility] [address] [place], [address] Observed: 04/21/2018 Status: F Source: [place] CULTURE, URINE 5:28 AM [facility] REPOSITORY Urine Culture ORGANISM 1: Mixed Gram Pos AND Gram Neg Org [place] Count <1000 MIX CULTURE Mixed contaminants. Submit a new specimen if indicated. Performed By: #### M100.0650 #### [facility] [address] [place] [address], [address] HISTORY AND PHYSICAL Observed: 04/21/2018 Status: F Source: [place] EXAM 3:49 AM [facility] Medical Records Department [address] [place] [address] History and Physical 04/21/18 0246 MR#: [id number] Acct: [id number] Name: ANNEMARIE LUZ TRENT Salvador Rep #: [id number] : 1940 77 From: Jhon Mejia DO PCP: Mook Kamara MD Status: ADM JUAN DANIEL Y Location: [place] [address] Problem List (1) HCAP (healthcare-associated pneumonia) Status: Suspected (2) Hypertension Status: Chronic (3) Hyperlipidemia Status: Chronic (4) Type 2 diabetes mellitus Status: Chronic (5) COPD (chronic obstructive pulmonary disease) Status: Chronic (6) Chronic hypoxemic respiratory failure Status: Chronic (7) Chronic anticoagulation Status: Acute (8) Atrial fibrillation Status: Chronic (9) Coronary artery disease Status: Chronic Qualifiers: Coronary Disease-Associated Artery/Lesion type: prairie band artery (10) Presence of combination internal cardiac [...] failure with hypoxemia who presented to the [facility] c/o substernal chest pain per the [...] lateral. The initial troponin was 0.038 at [facility]. No EKG was sent. Apparently she was recently at [facility] after a 9 day admission to [place]. the ER doc said for cellulitis but [...] for observation for HCAP suspected by the [place] ED doc. Past Medical History Past Medical [...] - Psychiatric History: No pertinent psych hx RETURN TO FACTORY CLERK History: dysfunctional uterine bld Lives: With Family, - - she is a and up until last year lived in [place] Smoking Status: Former smoker - quit in [...] afebrile with a normal WBC count at [facility]. minimal cough with no SOB and [...] Levaquin and 1 GM of Vancomycin at [facility] so there is no need to start antibiotics tonight.....bharti since I am not sure she even has HCAP Obtain records from [place] and Dr. Michael cardona If she is still in the hospital on Wednesday will need to consult [facility] for HD....Dr. Martin is her equipment installer Serial CE's EKG now IS Aerosols Continue the Apixaban obtain a medication reconciliation Blood cultures Urine for Legionella and streptococcal antigens Sputum culture Code Visit OBSV Isaak AND Jhon: [id number] Initial observation care L3 04/21/18 0349 <Electronically signed by Jhon Mejia DO> Date Jhon Mejia DO Cosign Signature: Date (if applicable) CC: Mook Morales MD; Jonna Martin MD; Kimberly Mejia; Mook Kamara MD; Aren Cardona MD Signed CBC W/DIFF, AUTOMATED Collected: 04/21/2018 Status: F Source: [place] 3:36 AM [facility] REPOSITORY TYPE CODE TESTS RESULT OUT OF [...] Lymph 1.27 Performed By: #### L100.0100 #### [facility] [address] [place], [address] BASIC METABOLIC Collected: 04/21/2018 Status: F Source: [place] PROFILE (BMP) 3:36 AM [facility] REPOSITORY TYPE CODE TESTS RESULT OUT OF [...] 9 Performed By: #### L500.2500, L501.5200 #### [facility] [address] [facility] [place], [place], [address] MAGNESIUM Collected: 04/21/2018 Status: F Source: [place] 3:36 AM [facility] REPOSITORY TYPE CODE TESTS RESULT OUT OF RANGE REFERENCE UNITS LAB L501.5200 1.6-2.6 mg/dL Normal MG 1.7 Performed By: #### L500.2500, L501.5200 #### [facility] [address] [place], [address] PHOSPHORUS Collected: 04/21/2018 Status: F Source: [place] 3:36 AM [facility] REPOSITORY Order Comment: 'TROP' Serial specimen #1, #2 or #3: 1 TYPE CODE TESTS RESULT OUT OF RANGE REFERENCE UNITS LAB L501.2300 2.5-4.9 mg/dL Low PHOS 2.4 Performed By: #### L501.2300, L501.4010 #### [facility] [address] [place], [address] TROPONIN-I Collected: 04/21/2018 Status: F Source: [place] 3:36 AM [facility] REPOSITORY Order Comment: 'TROP' Serial specimen #1, #2 or #3: 1 TYPE CODE TESTS RESULT OUT OF RANGE REFERENCE UNITS LAB L501.4010 <0.045 ng/mL High 0.467 TROPONIN-I Result Comment: TROPONIN-I EXPECTED VALUES <0.045 Negative 0.045 - 0.590 Consistent with Cardiac Damage > OR = 0.600 Critical Value Not every elevated troponin is indicative of PA. These values should be used with clinical judgement in examining the patient's clinical picture for diagnosis. To establish a diagnosis of PA versus myocardial injury, there must be a demonstrated rise and/or fall in the troponin values, in addition to ischemic symptoms, EKG changes, new regional wall motion abnormality, and/or angiographical evidence. PLEASE NOTE: REFERENCE RANGES EDITED 18 Performed By: #### L501.2300, L501.4010 #### [facility] [address] [place], [address] Observed: 04/21/2018 Status: F Source: [place] CULTURE, BLOOD (WB) 3:36 AM [facility] REPOSITORY Has pt arrived? Y BC No growth in 5 days. Performed By: #### M200.1000 #### [facility] [address] [place] [place], [address] CHEST PA AND LATERAL Observed: 04/21/2018 Status: F Source: [place] 2:58 AM [facility] REPOSITORY [facility] Imaging Services [address] [place] [address] Chest PA and Lateral MR#: [id number] Acct: [id number] Name: ANNEMARIE TRENTLUZ G Rep #: [id number] : 1940 F 77 From: Dina Landon MD PCP: Mook Kamara MD Status: ADM JUAN DANIEL Study: Chest PA and Lateral Date of Exam: 04/21/18 Exam# [id number] Ordering Dr: Jhon Mejia DO STUDY: X-RAY [...] , CC: Kimberly Mejia; Mook Kamara MD Top Lift Cutter: Signed CR CHEST PORTABLE Observed: 04/20/2018 Status: F Source: [employer] 9:54 PM SYSTEM REPOSITORY Patient Name: LUZ BACA Diagnostic Radiology Exam Date/Time 04/20/2018 21:45:04 EDT Exam CR Chest Portable Ordering Physician MD OMEGA, GEOVANNY PEARCE Accession Number [id number] CPT4 Codes 11703 () Reason For Exam chest pain Report [...] W/ AUTODIFF Collected: 04/20/2018 Status: F Source: [employer] 9:25 PM SYSTEM REPOSITORY TYPE CODE TESTS [...] Baso Cnt Normal 0.1 Performed By: #### HEMPRITI, BMP3, TROPN #### [facility] [address] [place] [address] BASIC METABOLIC PANEL Collected: 04/20/2018 Status: F Source: [employer] 9:25 PM SYSTEM REPOSITORY TYPE CODE TESTS [...] mg/dL Normal Calcium 8.5 Performed By: #### HEMPRITI, BMP3, TROPN #### [facility] [address] [place] [address] TROPONIN I Collected: 04/20/2018 Status: F Source: [employer] 9:25 PM SYSTEM REPOSITORY TYPE CODE TESTS RESULT OUT OF REFERENCE UNITS RANGE LAB TROP4 0.000-0.034 ng/mL High Troponin I 0.038 Result Comment: 0.046 - 0.400 = Indeterminate > 0.400 = Consider Myocardial Injury Performed By: #### HEMDF, BMP3, TROPN #### [facility] [address] [place] [place] [address] CNOV Observed: 03/17/2018 Status: COMPLETED Source: [place] 2:30 PM [facility] REPOSITORY Office Visit (PULMWS) BACALUZ ([id number]) 1940 F Date Time Provider Department 03/17/18 2:30 PM MANDY ADKINS During your visit today, we recorded the following information about you: Pulse Respiration Blood pressure Weight 78/minute 16/minute 102/62 105.2 kg Height 1.727 m Michael Brown COAL SHOOTER 03/17/2018 1:42 PM Signed Intake information documented in the prior visit with Hoa Valera, VICE PRESIDENT PROCESS today. Mandy Adkins PA-C 03/17/2018 3:57 PM Signed [facility] [place], 03/17/18: INTERVAL HISTORY: The patient is here for follow up of dyspnea. Since the last Pulmonary Clinic visit, the patient was admitted to [facility] on 01/27/18 secondary to fluid retention. She was started on dialysis. Discharged home on 02/17/18. Patient returned to the ED on 02/18/18 secondary to missing scheduled HD and requiring SNF level of care. Patient currently at [facility]. Today, patient states she is breathing [...] dysphagia, diarrhea. Constipation. No nausea or vomiting. Uro/RETURN TO FACTORY CLERK: No dysuria, hesitancy, nocturia. Musculoskeletal: Chronic pain [...] acceptance of my answers. Mandy Adkins PA-C [facility] [place] [address] [phone] Mandy Adkins PA-C 03/17/2018 3:07 PM Signed [...] per nephrology. Referring Provider: SEFERINO DEMARCO (GORGE) [[id number]] Allergies As of Date: 03/17/2018 Noted Allergy [...] diastolic CHF (congestive heart failure) (HCC) [I50.42] MARLA (obstructive sleep apnea) [G47.33] Dyspnea [...] 5 POLYSOMNOGRAM (PSG)/HOME SLEEP APNEA TESTING (HSAT) [5578935] Order #: [id number] FUTURE CONSULT TO SLEEP MEDICINE - ADULT [[id number]] Order #: [id number]: 1 Prescriptions as of 03/17/2018 Sig: CEPHALEXIN [...] Pulmonary HTN, Chronic hypoxemic hypercarbic respiratory failure, AMRLA noncompliant with PAP therapy, combined systolic and [...] per nephrology. Visit Notes: >> Michael Kevin RHODES [facility] March 17, 2018 1:41 PM Status: Signed [...] 03/17/18 PROGRESS Observed: 03/17/2018 Status: COMPLETED Source: [place] 2:06 PM [facility] REPOSITORY HNO ID: [id number] Author: Mandy Adkins Service: (none) Author Type: Physician Tester Electronic Scale Type: Progress Notes Filed: 03/17/2018 3:57 PM Note Text: [facility] [place], 03/17/18: INTERVAL HISTORY: The patient is here for follow up of dyspnea. Since the last Pulmonary Clinic visit, the patient was admitted to [facility] on 01/27/18 secondary to fluid retention. She was started on dialysis. Discharged home on 02/17/18. Patient returned to the ED on 02/18/18 secondary to missing scheduled HD and requiring SNF level of care. Patient currently at [facility]. Today, patient states she is breathing [...] dysphagia, diarrhea. Constipation. No nausea or vomiting. Uro/RETURN TO FACTORY CLERK: No dysuria, hesitancy, nocturia. Musculoskeletal: Chronic pain [...] acceptance of my answers. Mandy Adkins PA-C [facility] [place] [facility] [address] [phone] PROGRESS Observed: 02/22/2018 Status: COMPLETED Source: [place] 3:26 PM [facility] REPOSITORY HNO ID: [id number] Author: Remi Kennedy (Rn) Service: (none) Author Type: Registered Nurse Type: Progress Notes Filed: 02/22/2018 3:44 PM Note Text: PRIMARY CARE COORDINATION FOLLOW-UP NOTE Provider Action/FYI FYI Patient identified by name and date of . YES Spoke to DWAYNE Ohara from [facility] and DWAYNE Castellano from [facility] Summary: TC ot Nona Larkin is unavailable, left message regarding dialysis is set up for [place]. It is to start at 11:00 tomorrow but since pt is new to the facility tomorrow she should arrive at 10:40. Verbalized understanding with teach back. TC to DWAYNE Ohara for [facility], asked if pt has had her dialysis transferred to [place]? States yes, dialysis is set up for [place]. Dialysis is to start at 11:00 tomorrow but since pt is new to the facility tomorrow she should arrive at 10:40 Concerns: TC from DW[facility]NE Castellano at [facility], left message asking if patient has been transferred to [facility] instead of [place]. They need to know where to transport pt tomorrow for dialysis. Hotshot Superintendent plan for next outreach: Will follow up at discharge planning Signature Remi Kennedy RN February 22, 2018 LUDA Observed: 02/22/2018 Status: COMPLETED Source: READING 12:00 AM [facility] REPOSITORY Patient Outreach (FAMPWS) LUZ BACA ([id number]) 1940 F Date Time Provider Department 02/22/18 REMI KENNEDY (RN) [facility] During your visit today, we recorded the following information about you: Remi Kennedy (Rn) 02/22/2018 3:44 PM Signed PRIMARY CARE COORDINATION FOLLOW-UP NOTE Provider Action/FYI FYI Patient identified by name and date of . YES Spoke to DWAYNE Ohara from [facility] and DWAYNE Castellano from [facility] Summary: TC ot Nona Larkin is pavel, left message regarding dialysis is set up for [place]. It is to start at 11:00 tomorrow but since pt is new to the facility tomorrow she should arrive at 10:40. Verbalized understanding with teach back. TC to DWAYNE Ohara for [facility], asked if pt has had her dialysis transferred to [place]? States yes, dialysis is set up for [place]. Dialysis is to start at 11:00 tomorrow but since pt is new to the facility tomorrow she should arrive at 10:40 Concerns: TC from DWAYNE Castellano at [facility], left message asking if patient has been transferred to [facility] instead of [place]. They need to know where to transport pt tomorrow for dialysis. Hotshot Superintendent plan for next outreach: Will follow up [...] RN - Fully Assessed Reason for Visit: [employer] [facility] Follow Up [3610] Prescriptions as of [...] 02/22/18 PROGRESS Observed: 02/21/2018 Status: COMPLETED Source: [place] 2:48 PM [facility] [place] REPOSITORY HNO ID: [id number] Author: Jameson Kamara) Service: (none) Author Type: Physician Type: Progress Notes Filed: 02/21/2018 2:48 PM Note Text: Reviewed. PROGRESS Observed: 02/21/2018 Status: COMPLETED Source: [place] 2:18 PM [facility] [place] REPOSITORY HNO ID: [id number] Author: Remi Kennedy (Rn) Service: (none) Author Type: Registered Nurse Type: Progress Notes Filed: 02/21/2018 2:42 PM Note Text: TC from Nona at [facility], states she has spoken to Renea at [facility] and they are working on transferring patient. They don't need PCC to do anything at this point. Remi Kennedy RN February 21, 2018 2:42 PM TC from Renea RICE from [facility], states daughter is upset about patient's care and wants to move her. States patient is alert and oriented and did not voice any complaints. When asked pt if she wanted to be transferred to [facility] pt stated I'll do whatever my daughter wants. Discussed transfer to [facility] and moving dialysis from [facility] in [place] to [place]. Renea spoke with Lev at [facility] and they are working on transfer to dialysis at [place]. Renea will work with [facility]. Remi Kennedy RN PROGRESS Observed: 02/21/2018 Status: COMPLETED Source: [place] [address]30[address]:18 AM [facility] REPOSITORY HNO ID: [id number] Author: Remi Kennedy (Rn) Service: (none) Author Type: Registered Nurse Type: Progress Notes Filed: 02/21/2018 12:08 PM Note Text: TC to Mary at [facility], informed our SW had spoken with their SW about transferring pt from [facility] to [facility]. Patient wants the available bed and will speak to SW at [facility] to start transfer. Also, PCC is working with [facility] to have dialysis transferred from [place] to [place]. TC Domonique, DWAYNE at [facility], informed pt is in [facility] but wants to be transferred to [facility] in [facility]. They have a bed available and we are working on the transfer. [facility] can easily transport patient to [facility] in [place], asking if SW can transfer pt to [facility]. States she will work on the transfer but it might not be completed by Wed when her next dialysis is scheduled. TC to daughter, [facility] Dgt states they want the bed. Informed we will [facility] but dgt needs to contact [facility] to initiate the transfer, verbalized agreement. Asked how she will get her mom's medications transferred? Instructed to discuss with SW at [facility]. Dgt states she will trasport pt from [facility] to [facility]. Informed [facility] transports residents to [facility] all the time so they would like PCC to ask about transferring pt to [facility]. Informed PCC will contact [facility], verbalized agreement. Remi Kennedy RN PROGRESS Observed: 02/21/2018 Status: COMPLETED Source: [place] 11:00 AM [facility] REPOSITORY HNO ID: [id number] Author: Jameson Kamara) Service: (none) Author Type: Physician Type: Progress Notes Filed: 02/21/2018 11:00 AM Note Text: Reviewed. PROGRESS Observed: 02/21/2018 Status: COMPLETED Source: [place] 10:31 AM [facility] REPOSITORY HNO ID: [id number] Author: Remi KennedyRn) Service: (none) Author Type: Registered Nurse Type: Progress Notes Filed: 02/21/2018 10:44 AM Note Text: PRIMARY CARE COORDINATION FOLLOW-UP NOTE Provider Action/FYI FYI Patient identified by name and date of . YES Spoke to patient and Kennedi from [facility] and Wilma RICE Summary: TC from , [place] doesn't have transportation and she had to leave a message at [facility]. She will call [facility]. Discussed with SW to check [facility] or [facility]. TC to daughter, gave update on work being done to find another facility. Dgt states her son is at [facility] if they would transport or can we check [facility], informed SW will check. Discussed dgt's concerns with Wilma RICE and staff nurses for recommendations in the area who have transportation for patient's dialysis. DWAYNE will call facilities regarding open beds. TC to Kennedi at [facility], discussed dgt's concerns with [facility] and asked if she knows of a higher rated SNF. States she wasn't aware of concerns at [facility] and will have her media marketing manager look for a more appropriate facility. Concerns: Dgt very upset, states she wants her mom moved from [facility]. States she is very unhappy with that facility and she wants her out of there maliha. Dgt doesn't know of another facility to move her to and would like input from DWAYNE and staff. Hotshot Superintendent plan for next outreach: Will follow up one week Signature Remi Kennedy, ALLYSON February 21, 2018 PROGRESS Observed: 02/21/2018 Status: COMPLETED Source: [place] 8:27 AM [facility] REPOSITORY HNO ID: [id number] Author: Jameson Kmaara) Service: (none) Author Type: Physician Type: Progress Notes Filed: 02/21/2018 8:27 AM Note Text: Reviewed. LUDA Observed: 02/21/2018 Status: COMPLETED Source: [place] 12:00 AM [facility] REPOSITORY Patient Outreach (FAMPWS) LUZ BACA ([id number]) 1940 F Date Time Provider Department 02/21/18 REMI KENNEDY (RN) [facility] During your visit today, we recorded the following information about you: Remi Kennedy (Rn) 02/21/2018 10:44 AM Signed PRIMARY CARE COORDINATION FOLLOW-UP NOTE Provider Action/FYI FYI Patient identified by name and date of . YES Spoke to patient and Kennedi from [facility] and Wilma RICE Summary: TC from , [facility] doesn't have transportation and she had to leave a message at [facility]. She will call [facility]. Discussed with SW to check [facility] or [facility]. TC to daughter, gave update on work being done to find another facility. Dgt states her son is at [facility] if they would transport or can we check [facility], informed SW will check. Discussed dgt's concerns with Wilma RICE and staff nurses for recommendations in the area who have transportation for patient's dialysis. SW will call facilities regarding open beds. TC to Kennedi at [facility], discussed dgt's concerns with [facility] and asked if she knows of a higher rated SNF. States she wasn't aware of concerns at [facility] and will have her media marketing manager look for a more appropriate facility. Concerns: Dgt very upset, states she wants her mom moved from [facility]. States she is very unhappy with that facility and she wants her out of there maliha. Dgt doesn't know of another facility to move her to and would like input from DWAYNE and staff. Hotshot Superintendent plan for next outreach: Will follow up one week Signature Remi Kennedy, ALLYSON February 21, 2018 Jameson Kamara) 02/21/2018 11:00 AM Signed Reviewed. Remi Kennedy (Rn) 02/21/2018 12:08 PM Signed TC to Mary at [facility], informed our SW had spoken with their SW about transferring pt from [facility] to [facility]. Patient wants the available bed and will speak to DWAYNE at [facility] to start transfer. Also, PCC is working with [facility] to have dialysis transferred from [place] to [place]. TC DWAYNE Youssef at [facility], informed pt is in [facility] but wants to be transferred to [facility] in [facility]. They have a bed available and we are working on the transfer. [facility] can easily transport patient to [facility] in [place], asking if SW can transfer pt to [facility]. States she will work on the transfer but it might not be completed by Wed when her next dialysis is scheduled. TC to daughter, informed [facility] has a bed available. Dgt states they want the bed. Informed [facility] but dgt needs to contact [facility] to initiate the transfer, verbalized agreement. Asked how she will get her mom's medications transferred? Instructed to discuss with DWAYNE at [facility]. Dgt states she will trasport pt from [facility] to [facility]. Informed [facility] to [facility] all the time so they would like PCC to ask about transferring pt to [facility]. Informed PCC will contact [facility], verbalized agreement. ALLYSON Buck Kathy (Rn) 02/21/2018 2:42 PM Signed TC from Nona at [facility], states she has spoken to Renea at [facility] and they are working on transferring patient. They don't need PCC to do anything at this point. Remi Kennedy RN February 21, 2018 2:42 PM TC from , Renea from [facility], states daughter is upset about patient's care and wants to move her. States patient is alert and oriented and did not voice any complaints. When DWAYNE asked pt if she wanted to be transferred to [facility] pt stated I'll do whatever my daughter wants. Discussed transfer to [facility] and moving dialysis from [facility] in [place] to [place]. Renea spoke with Lev at [facility] and they are working on transfer to dialysis at [place]. Renea will work with [facility]. ALLYSON Buck Christopher B (Md) 02/21/2018 [...] RN - Fully Assessed Reason for Visit: [employer] - Patient Initiated [3614] Prescriptions as of [...] FOR* Priority: A More... Encounter Status:Closed by BRENTREMI Ferreira on 02/21/18 ED NOTE Observed: 02/18/2018 Status: COMPLETED Source: [place] 8:55 PM [facility] OTHER [place] REPOSITORY HNO ID: [id number] Author: Alisson Jacobo (Rn), RN Service: (none) Author Type: Registered Nurse Type: ED Notes Filed: 02/18/2018 8:58 PM Note Text: Extensive report called to Violet at [facility]. Pt's daughter stated that our clinical social work therapist spoke with staff at facility, and since patient is a hard stick the IV can remain in. Right AC 20g remained in. ALLYSON Lazo aware of this and felt comfortable. If access is NOT needed, she is able to remove it. CASE MANAGEM Observed: 02/18/2018 Status: COMPLETED Source: [place] 8:55 PM [facility]IC OTHER [place] REPOSITORY HNO ID: [id number] Author: Jannette Agustin () Service: Care Management Author Type: Director Of Labor And Delivery Type: Care Mgt Progress Note Filed: 02/18/2018 9:55 PM Note Text: CARE MANAGEMENT DISCHARGE NOTE SERVICE DATE: 02/18/2018 SERVICE TIME: 3:40 PM LOS: 0 days Admission Date: 02/18/2018 DISCHARGE ARRANGEMENT (list agency and phone number) jail facility Provider: [facility] CAREGIVER ASSESSMENT: Caregiver is ready, willing [...] TRANSPORTATION ARRANGEMENTS: Ambulance: Transport Agency and Phone: [facility] ambulance ( [facility] ) [phone] / [phone]. Discussion of financial coverage occurred with Patient and dtr/POA. ADDITIONAL CONTACT RESOURCES: dtr/Octavia [phone] FREEDOM OF CHOICE GIVEN: Yes explained to pt and dtr Financial Disclosure Provided The patient and/or family has been given the Provider List: Yes Provider List: Senior Living Facility Preference: initial first choice [facility], after discussion of needing facility either with dialysis on site or ability to transport to/from dialysis, first choice now [facility] Rehab Needs Prior to Discharge: Ready for Discharge Pt presented to the ED, d/c from hospital on 02/17 and reported to ED physician that she missed dialysis today because she was not aware it had been scheduled. Per d/c summary, pt was scheduled for dialysis today. Pt and dtr state they were sent in from PCP office to be admitted to hospital's long term unit, TUBE BENDER discussed possibility of long term facility as this hospital does not have long term unit. Pt agreeable to review SNF list. Discussion with physician, pt will need dialysis on 02/19, therefore would be best served at facility either with dialysis on site or with transportation to/from dialysis. Discussed with pt and dtr, they state first choice is [facility] in [place]. Referral sent, PAS completed, multiple conversations with [...] 18, 2018 TIME: 9:39 PM PAGER/CONTACT #: [phone] CASE MANAGEM Observed: 02/18/2018 Status: COMPLETED Source: [place] 8:55 PM CLINIC OTHER CAMPUS REPOSITORY HNO ID: [id number] Author: Pearl Mckeon (Rn), RN Service: Care Management Author Type: Registered Nurse Type: Care Mgt Progress Note Filed: 02/20/2018 9:21 AM Note Text: CARE MANAGEMENT PROGRESS NOTE SERVICE DATE: 02/20/2018 SERVICE TIME: 8:48 AM Late Entry for 02/19/18 1:00 PM LOS: 0 days [facility] [phone] Reanna Redd Nurses call [facility] to report pts. HD unit at [facility] in [place] or [place] was not open when SNF drove pt to facility for #3 HD Session for this pt. today.SNF Nurses are questioning what should they do. ETHNIC ORIGINS TEACHER reffered to this CM. Pt. was ER to SNF placement on 02/18/18, was referred from MD office to ER. Pt. missed her HD Sessin on 02/18. Dr. Bray Service pgd, CM spoke with anabel rubin, Dr Sharp deputy felony clerk this weekend. Dr. Sharp pgd at 1:30 PM and 2:30 PM by anabel [facility] x 2 no ans to this CM.CM spoke with Zan Chow RN who spoke with Jannette MARINELLI re ER case. Zan Chow RN texted CM that Dr Betancourt said it was part of nephrologys D/C instructions for pt. to have HD on 02/19. Renea from [facility] was to have pt. to [facility] at 0930 on 02/19. Per EMR pt. had HD 02/15 500cc 02/16 1500cc 02/17 2000cc 02/18 No HD 2:40 PM Pete Presley RN Mgr CM pgd re above, 2 N RNs assisted as well as Chsa Mitchell RN CM assisted this CM with this case. [facility] called, spoke with Reanna and advised her to call pts attending and explain what occurred, and how he wants to treat pt. I left my [facility] cell phone with Nurse Reanna for any questions. SIGNATURE: Pearl Mckeon RN,BSN, ACM PATIENT NAME: Luz Baca DATE: February 20, 2018 TIME: 8:47 AM PAGER/CONTACT #: [phone] ED NOTE Observed: 02/18/2018 Status: COMPLETED Source: [place] 8:38 PM CLINIC OTHER CAMPUS REPOSITORY HNO ID: [id number] Author: Alisson Jacobo (Rn), RN Service: (none) Author Type: Registered Nurse Type: ED Notes Filed: 02/18/2018 8:39 PM Note Text: Dr. Betacnourt lanced blister on left leg. This RN [...] ED NOTE Observed: 02/18/2018 Status: COMPLETED Source: [place] 7:05 PM [facility] REPOSITORY HNO ID: [id number] Author: Luba KauffmanRn), RN Service: Emergency Medicine Author Type: Registered Nurse Type: ED Notes Filed: 02/18/2018 7:35 PM Note Text: Report off care to Alisson VALADEZ ED NOTE Observed: 02/18/2018 Status: COMPLETED Source: [place] 6:53 PM [facility] OTHER [place] REPOSITORY HNO ID: [id number] Author: Luba Kauffman (Rn), RN Service: Emergency Medicine Author Type: Registered Nurse Type: ED Notes Filed: 02/18/2018 6:53 PM Note Text: CBC AND DIFFERENTIAL Collected: 02/18/2018 Status: F Source: [place] 5:00 PM [facility] OTHER CAMPUS REPOSITORY TYPE CODE TESTS RESULT [...] Low Abs Lymph 0.99 LAB AMONO % [place]% 10.8 LAB AAMONO <0.87 k/uL Abs [place] High 1.19 LAB AEOS % Eosin% 1.7 LAB AAEOS <0.46 k/uL Abs Eosin 0.19 LAB ABASO % Baso% 0.3 LAB AABASO <0.11 k/uL Abs Baso 0.03 Performed By: #### CBCDIF, PT, CMP, MG1 #### [facility] [address] [place] [address] PROTIME Collected: 02/18/2018 Status: F Source: [place] 5:00 PM CLINIC OTHER CAMPUS REPOSITORY TYPE CODE TESTS RESULT OUT OF RANGE REFERENCE UNITS LAB PSEC 9.7-13.0 sec PT Sec 11.9 LAB INR 0.9-1.3 PT INR 1.2 Result Comment: Vitamin K Antagonist (VKA) Therapeutic Range: INR 2 to 3 (Target INR of 2.5) Note: For patients treated with VKA drugs, such as warfarin, the [employer] [employer] 2012 Guideline recommends [...] 2012, 141:7S-47S Jose R NGUYEN et al. [facility] 2017, 70: 252-289 Performed By: #### CBCDIF, PT, CMP, MG1 #### [facility] [address] [place] [address] COMP METABOLIC PANEL Collected: 02/18/2018 Status: F Source: [place] 5:00 PM CLINIC OTHER CAMPUS REPOSITORY TYPE [...] mg/dL High Glucose 203 Result Comment: The [place] [employer] Association (ADA) provides guidance for cutoff [...] Standards of Medical Care in Diabetes 2016, [place] [employer]. Diabetes Care. 2016.39(Suppl 1). LAB [...] By: #### CBCDIF, PT, CMP, MG1 #### [facility] [address] [facility] [phone] MAGNESIUM Collected: 02/18/2018 Status: F Source: [place] 5:00 PM CLINIC OTHER CAMPUS REPOSITORY TYPE CODE TESTS RESULT OUT OF REFERENCE UNITS RANGE LAB MG 1.7-2.3 mg/dL Magnesium 2.3 Performed By: #### CBCDIF, PT, CMP, MG1 #### [facility] [address] [facility] [phone] ED PROV NOTE Observed: 02/18/2018 Status: COMPLETED Source: [place] 4:58 PM CLINIC OTHER CAMPUS REPOSITORY HNO ID: [id number] Author: Jose C Betancourt MD Service: Emergency [...] Martin - COPD (chronic obstructive pulmonary disease) ([facility]) Dr. Cruz - Depression - Diabetes ([facility]) - Diabetic neuropathy ([facility]) - Edema - GERD (gastroesophageal reflux disease) - Gout with hyperuricemia - HH (hiatus hernia) - HOCM (hypertrophic obstructive cardiomyopathy) ([facility]) S/P Septal Myectomy in 2003. Now with LVEF 50% and mod/severe pulm HTN. - HTN (hypertension) - Hyperlipidemia - Morbid obesity with BMI of 40.0-44.9, adult ([facility]) - Sleep apnea 2011 not on CPAP, unable to tolerate mask 02/2017 - SVT (supraventricular tachycardia) ([facility]) NSVT and questionable VT in 2003 post [...] age 89, HTN - Heart Failure Mother PA - Cancer Father age 71, lung cancer [...] the facility. We did tell her that [facility] is not an acute rehabilitation facility. She [...] 1V FRONTAL Observed: 02/18/2018 Status: F Source: [facility] 4:31 PM [facility] OTHER [place] REPOSITORY * * *Final Report* * * [...] Other: Status post median sternotomy and CABG. Top Lift Cutter: PSCB Transcribe Date/Time: Feb 18 2018 4:33P Dictated by : LISA MILLER MD This examination was interpreted and the report reviewed and electronically signed by: LISA MILLER MD on Feb 18 2018 4:35PM EST [id number] ED NOTE Observed: 02/18/2018 Status: COMPLETED Source: [place] 3:29 PM [facility] [facility] [place] REPOSITORY HNO ID: [id number] Author: Cyndie Woods (Rn), RN Service: (none) [...] ED NOTE Observed: 02/18/2018 Status: COMPLETED Source: [place] 3:25 PM [facility] OTHER CAMPUS REPOSITORY HNO ID: [id number] Author: Pat Martinez ([facility] Service: (none) Author Type: Health Traffic Control Supervisor Type: ED Notes Filed: 02/18/2018 3:25 PM Note Text: Bed: ED-06 Expected date: Expected time: Means of arrival: Comments: Princess PROGRESS Observed: 02/18/2018 Status: COMPLETED Source: [place] 12:20 PM [facility] MA[facility] CAMP[facility] REPOSITORY HNO ID: [id number] Author: Remi Kennedy (Rn) Service: (none) Author Type: Registered Nurse Type: Progress Notes Filed: 02/18/2018 2:35 PM Note Text: TRANSITION CARE MANAGEMENT (TCM) INITIAL CONTACT Provider Action/FYI: TC to Dr. Andrew at [facility] ER, gave report regarding weakness, safety in home, difficulty getting to dialysis, blood blister on LLE with edema and constipation. Dr. Andrew feels pt requires long term facility and agreed with sending pt back to hospital TC to patient and dgt, pt agreed to go back to hospital but refuses squad. Dgt states she will drive the patient. Discussed with PCP very concerned about patient's safety in home over the weekend if PCC/SW can't get pt admitted to SNF today. Instructed to have pt go back to [facility]. TC by SW to [facility] to have pt admitted to inpatient Rehab or TCU, states they don't feel pt is eligible for their inpatient skilled care and they don't have a bed in TCU. Instructed to try to get pt in another SNF TC to [facility], asked if the nurse could make a visit today due to blister on leg, constipation and pt's weakness. Hydrodynamics ProfessorKennedi states if her nurse goes out to the home and the patient is as bad as she sounds they will call the squad and send her back to hospital. TC to [facility], pt is scheduled for dialysis on Initial contact with patient post discharge, spoke to daughter, Lev Andujar @ [facility] and Vanessa at [facility]. Patient identified by name and . SUMMARY: -Pt discharged from [facility] on 02/17. -Follow up appointment on . -Medication review done no. 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 Overview ? ? [...] an ongoing basis ? ? Atrial fibrillation ([facility]) 09/23/2010 - Present ? Overview ? ? [...] disease, with long-term current use of insulin ([facility]) 09/23/2004 - Present ? Current Assessment AND [...] ? CNPTOUTREACH Observed: 02/18/2018 Status: COMPLETED Source: READING 12:00 AM [facility] REPOSITORY Patient Outreach (FAMPWS) LUZ BACA ([id number]) 1940 F Date Time Provider Department 02/18/18 REMI KENNEDY (RN) FAMPWS During your visit today, we recorded the following information about you: Remi Kennedy (Rn) 02/18/2018 2:35 PM Signed TRANSITION CARE MANAGEMENT (TCM) INITIAL CONTACT Provider Action/FYI: TC to Dr. Andrew at [facility] ER, gave report regarding weakness, safety in home, difficulty getting to dialysis, blood blister on LLE with edema and constipation. Dr. Andrew feels pt requires long term facility and agreed with sending pt back to hospital TC to patient and dgt, pt agreed to go back to hospital but refuses squad. Dgt states she will drive the patient. Discussed with PCP very concerned about patient's safety in home over the weekend if PCC/SW can't get pt admitted to SNF today. Instructed to have pt go back to [facility]. TC by SW to [facility] to have pt admitted to inpatient Rehab or TCU, states they don't feel pt is eligible for their inpatient skilled care and they don't have a bed in TCU. Instructed to try to get pt in another SNF TC to [facility], asked if the nurse could make a visit today due to blister on leg, constipation and pt's weakness. Hydrodynamics ProfessorKennedi states if her nurse goes out to the home and the patient is as bad as she sounds they will call the squad and send her back to hospital. TC to [facility], pt is scheduled for dialysis on Initial contact with patient post discharge, spoke to daughter, Lev Andujar @ [facility] and Vanessa at [facility]. Patient identified by name and . SUMMARY: -Pt discharged from [facility] on 02/17. -Follow up appointment on . -Medication review done no. -Admitted for: Active Problems: Acute renal failure superimposed on stage 3 chronic kidney disease (HCC) Chronic combined systolic and diastolic CHF (congestive heart failure) ([facility]) Atrial fibrillation ([facility]) Pacemaker CAD (coronary artery disease) Uncontrolled type 2 diabetes mellitus with stage 3 chronic kidney disease, with long-term current use of insulin ([facility]) Sleep apnea Hyponatremia Hypertension Obesity OPERATIONS PERFORMED [...] systolic and diastolic CHF (congestive heart failure) ([facility]) 12/10/2017 - Present ? Overview ? ? [...] disease, with long-term current use of insulin ([facility]) 09/23/2004 - Present ? Current Assessment AND [...] 02/21/18 PROGRESS Observed: 02/17/2018 Status: COMPLETED Source: READING 4:14 PM [facility] OTHER [place] REPOSITORY HNO ID: [id number] Author: Abbie Aldana (Rn), RN Service: (none) Author Type: Registered Nurse Type: Progress Notes Filed: 02/17/2018 4:17 PM Note Text: Hemodialysis x 3 hours completed. Pt tolerated tx well. Fluid balance -2000ml. Heparin 1000units/ml to close CVC ports to fill volume. Report given to ALLYSON Wright. PLAN OF CARE Observed: 02/17/2018 Status: COMPLETED Source: [place] 2:13 PM [facility] REPOSITORY HNO ID: [id number] Author: Shane (Pharmacist)Adolfo Service: Pharmacy Author Type: [...] Your Medications These medications were sent to [facility] [address] [place] [address] - [address] [place] [address] - [phone] [place] [id number] ? amiodarone 200 mg tablet ? carvedilol 3.125 mg tablet ? gabapentin 100 mg capsule ? melatonin 3 mg tablet ? torsemide 10 mg tablet CNDS Observed: 02/17/2018 Status: COMPLETED Source: READ[place] 11:34 AM CLINIC OTHER CAMPUS REPOSITORY HNO ID: [id number] Author: Micha Moreno MD Service: Hospital Medicine Author Type: Physician Type: Discharge Summaries Filed: 02/17/2018 11:39 AM Note Text: DISCHARGE SUMMARY PATIENT NAME: Luz Baca Admission Information Admission Information ADMIT DATE: 01/27/2018 DISCHARGE DATE: 02/17/2018 MY DOCTORS AND MEDICAL TEAM: My Main Hospital Doctor: Micha Moreno MD Primary Care Provider: Jameson Kamara) My Medical Team Members: Treatment Team: Attending Provider: Micha Moreno MD Physician Tester Electronic Scale: Raymond Rangel ([place]) Consulting: Shruti Nair Consulting: Malena Bray Consulting: [...] to call for appointment?: Yes Jameson Kamara) [phone] [facility] [address] PCP Requested Referral Additional Provider to Provider Information: No notes on file Active Hospital Problems as of 02/17/2018 Noted - Resolved A Acute renal failure superimposed on stage 3 chronic kidney disease ([facility]) 02/12/2018 - Present Current Assessment AND Plan Assessment: the renal failure was set off by the need for diuresis with cardiorenal syndrome. Scheduled for dialysis tomorrow 02/18 PLAN: patient will most likely be permanently on dialysis because of fluid balance problems from her right heart failure B Chronic combined systolic and diastolic CHF (congestive heart failure) ([facility]) 12/10/2017 - Present Overview Pt was just hospitalized for CHF exacerbation from 01/20/18-01/23/18. BNP 1300 improved from 2145 from last admit. Continue home meds. Current Assessment AND Plan Assessment: with her renal function fluid balance is been very difficult and she does have cardiorenal syndrome PLAN: proceeding with dialysis on an ongoing basis C Atrial fibrillation ([facility]) 09/23/2010 - Present Overview On eliquis. S/p [...] disease, with long-term current use of insulin ([facility]) 09/23/2004 - Present Current Assessment AND Plan [...] consult. FOLLOW-UP APPOINTMENTS ALREADY SCHEDULED WITH A [facility] PROVIDER: Future Appointments Date Time Provider Department Center 03/11/2018 1:20 PM Jameson Kamara) FAMPWS [facility] 04/04/2018 8:00 AM [facility] VSLWST [facility] 04/04/2018 9:00 AM [facility] VSLW[facility] 04/04/2018 10:30 AM Michael Hogan VASSWS [facility] 04/21/2018 2:50 PM Jose C Rodriguez PODIWS [facility] 05/24/2018 1:30 PM Aren Cardona AGCARDWSSera [facility] 10/04/2018 1:00 PM Ene Hubbard [facility] [address] Discharge Information Row Name ED to Hosp-Admission (Current) from 01/27/2018 in [facility] Medical Follow-Up Appointment Specialty ? Provider Name ? Address ? City, State, Zip ? Phone Number ? Appointment Date ? Appointment Time ? Additonal Instructions ? Medical Follow-Up Appointment Specialty Charge Lev [phone] [facility] DIALYSIS [facility] Enhanced [facility] DISCHARGE MEDICATION: Current Discharge Medication List [...] unspecified vessel or lesion type, unspecified whether prairie band or transplanted heart apixaban (ELIQUIS) 5 mg [...] discharge management of this patient. SIGNATURE: Micha Moreno MD PAGER/CONTACT #: DATE: February 17, 2018 TIME: 11:34 AM CASE MANAGEM Observed: 02/17/2018 Status: COMPLETED Source: [place] 11:15 AM CLINIC OTHER CAMPUS REPOSITORY HNO ID: [id number] Author: Vanessa Loomis (Rn) ALLYSON Gonzalez Service: [...] From home with dtr. Dtr will transport. [facility] [phone] [facility] HD central intake) [phone] CAREGIVER ASSESSMENT: Caregiver is ready, willing and able to meet the patient's needs as recommended by the inter-professional team? Yes Patient's transition needs and plan for meeting these needs: self care, daughter, [facility] , NEw HD set up Does the patient have an acute stroke diagnosis, or has the patient had a stroke during this admission? No HANDOFF COMMUNICATION: Primary Care Physician: HIGH RISK PCC Remi Taylor Phone Number: this note sent bedside RN Delma TRANSPORTATION ARRANGEMENTS: Car daughter ADDITIONAL CONTACT RESOURCES: Discharge Information Row Name ED to Hosp-Admission (Current) from 01/27/2018 in [facility] Medical Follow-Up Appointment Specialty ? Provider Name ? Address ? City, State, Zip ? Phone Number ? Appointment Date ? Appointment Time ? Additonal Instructions ? Medical Follow-Up Appointment Specialty Charge [facility] [phone] NEW DIALYSIS [facility] IM letter given to Luz on 02/17/18. Tasked for PCP follow up SIGNATURE: Vanessa Gonzalez RN PATIENT NAME: Luz Baca DATE: February 17, 2018 TIME: 11:15 AM PAGER/CONTACT #: [phone] CONSULT PROG Observed: 02/17/2018 Status: COMPLETED Source: [place] 10:41 AM CLINIC OTHER CAMPUS REPOSITORY HNO ID: [id number] Author: Malena Bray Service: Nephrology Author Type: [...] 100mg daily 7. Outpatient dialysis placement at [facility] 3x/week under my service on discharge OK with me for DC planning if stable after dialysis today or tomorrow ? PLAN OF CARE Observed: 02/17/2018 Status: COMPLETED Source: READING 8:03 AM [facility] OTHER CAMPUS REPOSITORY HNO ID: [id number] Author: Dina Bowman MD Service: Endocrinology Author Type: Physician Type: Plan of Care Filed: 02/17/2018 8:04 AM Note Text: Endocrinology Plan of Care Note Patient with mild hypoglycemia last evening. Insulin requirements have decreased with renal failure, initiation of dialysis. Decreased insulin doses to: Lantus 15 units qam only Humalog 6 units sc qac Dina Bowman MD CBC Collected: 02/17/2018 Status: F Source: READING 4:15 AM [facility] REPOSITORY TYPE CODE TESTS RESULT OUT OF [...] Performed By: #### CBC, CMP, PHOS #### [facility] [address] [facility] [phone] COMP METABOLIC PANEL Collected: 02/17/2018 Status: F Source: READ[place] 4:15 AM [facility] REPOSITORY TYPE CODE TESTS RESULT OUT OF [...] 74-99 mg/dL Glucose 92 Result Comment: The [place] [employer] Association (ADA) provides guidance for cutoff [...] Standards of Medical Care in Diabetes 2016, [place] [employer]. Diabetes Care. 2016.39(Suppl 1). LAB [...] Performed By: #### CBC, CMP, PHOS #### [facility] [address] [place] [address] PHOSPHORUS Collected: 02/17/2018 Status: F Source: READ[place] 4:15 AM [facility] OTHER [place] REPOSITORY TYPE CODE TESTS RESULT OUT OF REFERENCE UNITS RANGE LAB PHOS 2.7-4.8 mg/dL Phosphorus 4.5 Performed By: #### CBC, CMP, PHOS #### [facility] [address] [facility] [phone] PROGRESS Observed: 02/16/2018 Status: COMPLETED Source: READING 5:29 PM [facility] REPOSITORY HNO ID: [id number] Author: Frantz (Rn) ALLYSON Escalera Service: Dialysis [...] THERAPY NT Observed: 02/16/2018 Status: COMPLETED Source: READ[place] 2:37 PM [facility] REPOSITORY HNO ID: [id number] Author: Vaibhav OsheaPt) Martir Service: Physical Therapy Author Type: Physical Therapist Type: Therapy (PT/OT/Speech/Resp) Filed: 02/16/2018 3:10 PM Note Text: Physical Therapy Treatment SERVICE DATE: 02/16/2018 SERVICE TIME: 1150 to 1250 (split session [id number] AND 1245 - 1250 to allow MD consult, meal) ROOM: [place] [address] Recommended Discharge Disposition: Home PT Recommended Discharge [...] symptoms and signs-other Interventions Provided: Therapeutic Activity (01736) Therapeutic Activity (46146) Treatment Minutes: 15 1 unit Skilled Intervention(s):Educated [...] 3065 PROGRESS Observed: 02/16/2018 Status: COMPLETED Source: READ[place] 2:07 PM CLINIC OTHER CAMPUS REPOSITORY HNO ID: [id number] Author: Micha Moreno MD Service: Hospital Medicine Author Type: Physician Type: Progress Notes Filed: 02/16/2018 2:08 PM Note Text: SERVICE DATE: 02/16/2018 SERVICE TIME: 2:07 PM HOSPITAL MEDICINE PROGRESS NOTE NIGHT AND WEEKEND COVERAGE: Nights: Please contact pager [phone]. Reason for Admission/Observation: Elevated high-sensitivity troponin elevation [...] before resolving. Consultants: Dr. Asa Nair Disposition: [facility] SUBJECTIVE Interval HPI:No chest pain or shortness of breath. set up for dialysis on Wednesday at [facility]. She is for dialysis this afternoon and [...] systolic and diastolic CHF (congestive heart failure) ([facility]) 12/10/2017 - Present Overview Pt was just hospitalized for CHF exacerbation from 01/20/18-01/23/18. BNP 1300 improved from 2145 from last admit. Continue home meds. Current Assessment AND Plan Assessment: with her renal function fluid balance is been very difficult PLAN: proceeding with dialysis C Atrial fibrillation ([facility]) 09/23/2010 - Present Overview On eliquis. S/p [...] disease, with long-term current use of insulin ([facility]) 09/23/2004 - Present Current Assessment AND Plan [...] care discussed with: Patient, Family/Other: daughter, Erwin Sanchez, ALLYSON and Consultants: Dr. Bray SIGNATURE: Micha Moreno MD PATIENT NAME: Luz Baca DATE: February 16, 2018 TIME: 2:07 PM PAGER/CONTACT #: CONSULT PROG Observed: 02/16/2018 Status: COMPLETED Source: READING 12:59 PM [facility] REPOSITORY HNO ID: [id number] Author: Malena Bray Service: Nephrology Author Type: Physician Type: Consult Progress Note Filed: 02/16/2018 1:01 PM Note Text: Patient seen and examined. Feels weak and tired. Having some pain at dialysis catheter site. Still has pressure dressing applied. She is being set up as an outpatient at [facility]. Blood pressure 104/53, pulse 76, temperature 36.5 [...] 100mg daily 7. Outpatient dialysis placement at [facility] 3x/week under my service on discharge ? CASE MANAGEM Observed: 02/16/2018 Status: COMPLETED Source: [place] 10:27 AM CLINIC OTHER CAMPUS REPOSITORY HNO ID: [id number] Author: Vanessa Loomis (Rn) ALLYSON Gonzalez Service: Case Management Author Type: Registered Nurse Type: Care Mgt Progress Note Filed: 02/16/2018 10:43 AM Note Text: CARE MANAGEMENT PROGRESS NOTE SERVICE DATE: 02/16/2018 SERVICE TIME: 10:27 AM LOS: 19 days CM received call from [facility] Charge Nurse Lev [phone]. Pt has Chair time Wednesday 9:30am. She is asking for confirmation of dc to make chir time. CM spoke to Dr Moreno. Pt has HD yesterday and will have today. POSSIBLE Dc Tomorrow for Wednesday Chair time. Hep Labs sent. CM met with Luz to review her dc plan. She c/o HD access pain and tired. She is in agreement with dc plan and can sign HD consent herself. CM confirmed with Rubens Spence Charge Nurse Lev [phone]. Chose [facility] HHC, NEED F2F, NEW DIALYSIS [facility]. High Risk PCC Remi Olveran . On 3L n/c today Chronic 2.5 LO2 at home From home with dtr. Dtr will transport. SIGNATURE: Vanessa Gonzalez RN PATIENT NAME: Luz Baca DATE: February 16, 2018 TIME: 10:27 AM PAGER/CONTACT #: [phone] CBC Collected: 02/16/2018 Status: F Source: READ[place] 4:20 AM [facility] OTHER [place] REPOSITORY TYPE CODE TESTS RESULT OUT OF [...] Performed By: #### CBC, CMP, PHOS #### [facility] [address] [facility] [phone] COMP METABOLIC PANEL Collected: 02/16/2018 Status: F Source: READ[place] 4:20 AM CLINIC OTHER CAMPUS REPOSITORY TYPE [...] mg/dL Glucose High 171 Result Comment: The [place] Diabetes Association (ADA) provides guidance for cutoff [...] Standards of Medical Care in Diabetes 2016, [place] Diabetes [employer]. Diabetes Care. 2016.39(Suppl 1). LAB [...] By: #### CBC, CMP, PHOS #### [facility] [address] [facility] [phone] PHOSPHORUS Collected: 02/16/2018 Status: F Source: READ[place] 4:20 AM CLINIC OTHER CAMPUS REPOSITORY TYPE CODE TESTS RESULT OUT OF REFERENCE UNITS RANGE LAB PHOS 2.7-4.8 mg/dL High Phosphorus 5.2 Performed By: #### CBC, CMP, PHOS #### [facility] [address] [facility] [phone] PROGRESS Observed: 02/15/2018 Status: COMPLETED Source: READING 5:28 PM CLINIC OTHER [place] REPOSITORY HNO ID: [id number] Author: Micha Moreno MD Service: Hospital Medicine Author Type: Physician Type: Progress Notes Filed: 02/15/2018 5:29 PM Note Text: SERVICE DATE: 02/15/2018 SERVICE TIME: 5:28 PM HOSPITAL MEDICINE PROGRESS NOTE NIGHT AND WEEKEND COVERAGE: Nights: Please contact pager [phone]. Reason for Admission/Observation: Elevated high-sensitivity troponin elevation [...] before resolving. Consultants: Dr. Asa Nair Disposition: [facility] SUBJECTIVE Interval HPI:No chest pain or [...] superimposed on stage 3 chronic kidney disease ([facility]) 02/12/2018 - Present B Chronic combined systolic and diastolic CHF (congestive heart failure) ([facility]) 12/10/2017 - Present Overview Pt was just hospitalized for CHF exacerbation from 01/20/18-01/23/18. BNP 1300 improved from 2145 from last admit. Continue home meds. C Atrial fibrillation ([facility]) 09/23/2010 - Present Overview On eliquis. S/p pacemaker. Monitor on tele. D Pacemaker Unknown - Present Overview Had recent device interrogation 12/2017. E CAD (coronary artery disease) Unknown - Present Overview CABGx2 (DEBORAH-LAD, SVG-PDA ) in 2003 H Uncontrolled type 2 diabetes mellitus with stage 3 chronic kidney disease, with long-term current use of insulin ([facility]) 09/23/2004 - Present I Sleep apnea Unknown [...] discussed with: Patient and RN SIGNATURE: Micha Moreno MD PATIENT NAME: Luz Baca DATE: February 15, 2018 TIME: 5:28 PM PAGER/CONTACT #: NURSING PROG Observed: 02/15/2018 Status: COMPLETED Source: READING 3:22 PM [facility] REPOSITORY HNO ID: [id number] Author: Yi OsheaRn) ALLYSON Taylor Service: Dialysis Author Type: Registered Nurse Type: Nursing Progress Note Filed: 02/15/2018 3:24 PM Note Text: HD X 2 HRS ON A 2K BATH UF -600ML TOLERATED 1ST TREATMENT WELL. HEPATITIS LABS ORDERED. RIJ CATH WITH GOOD FLOWS. DSG DRY AND INTACT. VITALS STABLE THROUGHOUT TREATMENT. NURSING PROG Observed: 02/15/2018 Status: COMPLETED Source: [place] 1:13 PM [facility] REPOSITORY HNO ID: [id number] Author: Reanna OsheaRn) ALLYSON Davalos Service: Nursing Author Type: Registered Nurse Type: Nursing Progress Note Filed: 02/15/2018 1:36 PM Note Text: Nursing Progress Note Patient Name: Luz Baca Patient Location: [place] [id number] Daily Note: Pt AANDO x 3, daughter [...] NURSING PROG Observed: 02/15/2018 Status: COMPLETED Source: [place] 12:49 PM [facility] OTHER [place] REPOSITORY HNO ID: [id number] Author: Nahomi (Rn) ALLYSON Palomo Service: (none) Author Type: Registered Nurse Type: Nursing Progress Note Filed: 02/15/2018 12:51 PM Note Text: Nursing Progress Note Patient Name: Luz Baca Patient Location: [facility]0262/[id number] Report to ALLYSON [place] in dialysis. Aware pt will go to dialysis after 1300 if stable. This note was completed by: Nahomi Palomo RN XR CHEST 1V FRONTAL Observed: 02/15/2018 Status: F Source: [facility] 12:35 PM [facility] REPOSITORY * * *Final Report* * * DATE OF EXAM: Feb 15 2018 12:35PM MDX 5376 - XR CHEST 1V FRONTAL PORT / PROCEDURE REASON: ESRD (end stage renal disease) ([facility]) * * * * Physician Interpretation * * * * EXAMINATION: CHEST RADIOGRAPH (PORTABLE SINGLE VIEW AP) Exam Date/Time: 02/15/2018 12:35 PM Indication: ESRD (end stage renal disease) ([facility]) MQ: XCPMC_5 Comparison: 02/07/2018 RESULT: See impression. [...] excluded. Cardiomediastinal silhouette: Stable cardiomegaly Other: . Top Lift Cutter: SALINAS Transcribe Date/Time: Feb 15 2018 12:40P Dictated by : GALINDO BECKER MD This examination was interpreted and the report reviewed and electronically signed by: GALINDO BECKER MD on Feb 15 2018 12:41PM EST [id number] NURSING PROG Observed: 02/15/2018 Status: COMPLETED Source: [place] 12:34 PM [facility] REPOSITORY HNO ID: [id number] Author: Nahomi OsheaRn) ALLYSON Palomo Service: (none) Author Type: Registered Nurse Type: Nursing Progress Note Filed: 02/15/2018 12:35 PM Note Text: Nursing Progress Note Patient Name: Luz Baca Patient Location: [facility]0262/[id number] Report from ALLYSON Arteaga. Pt stable at this time. Care assumed. This note was completed by: Nahomi Palomo RN BRIEF OP NOT Observed: 02/15/2018 Status: COMPLETED Source: [place] 12:17 PM [facility] REPOSITORY HNO ID: [id number] Author: Micheal Hogan Service: Vascular Surgery Author Type: Physician Type: Brief Op Note Filed: 02/15/2018 12:18 PM Note Text: BRIEF OP NOTE LOG ID: [id number] Surgery/Procedure Date: 02/15/2018 Incision/Procedure Start Time: 11:39 AM Incision Close/Procedure End Time: Surgeon(s)/Proceduralist(s) and Tester Electronic Scale(s): Surgeon(s) and Role: * Michael Hogan Primary Procedure(s): Placement of 19cm Bard GlidePath tunneled dialysis catheter Anesthesia: Procedural Sedation Findings: Patent right internal jugular vein Estimated Blood Loss: minimal Specimens: None Complications: None Pre-Op/Pre-Procedure Diagnosis:Acute kidney injury, need for dialysis access Post-Op/Post-Procedure Diagnosis:same SIGNATURE: Michael Hogan DO PATIENT NAME: Luz Baca DATE: February 15, 2018 TIME: 12:17 PM PAGER/CONTACT #: [phone] CASE MANAGEM Observed: 02/15/2018 Status: COMPLETED Source: [place] 11:06 AM [facility] REPOSITORY HNO ID: [id number] Author: Vanessa OsheaRn) ALLYSON Gonzalez Service: Case [...] 15, 2018 TIME: 11:06 AM PAGER/CONTACT #: [phone] HEP B CORE AB,TOTAL Collected: 02/15/2018 Status: F Source: [place] 8:25 AM [facility]INIC OTHER [place] REPOSITORY TYPE CODE TESTS RESULT OUT OF REFERENCE UNITS RANGE LAB AHBCOT Negative Hep B Negative Core Ab,Total Performed By: #### AHBCOT, HBSAG, AHBSQ #### [facility] [employer] [facility] [place] [address] HEPATITIS B SURF. AG Collected: 02/15/2018 Status: F Source: [place] 8:25 AM [facility] OTHER [place] REPOSITORY TYPE CODE TESTS RESULT OUT OF REFERENCE UNITS RANGE LAB HBSAG Negative Hepatitis B Negative Surf. Ag Performed By: #### AHBCOT, HBSAG, AHBSQ #### [facility] [employer] [address] [place] [address] HEPB SURFACEAB,QUANT Collected: 02/15/2018 Status: F Source: [place] 8:25 AM [facility] OTHER [place] REPOSITORY TYPE CODE TESTS RESULT OUT OF REFERENCE UNITS RANGE LAB AHBSQ <8.00 mIU/mL HepB 0.00 SurfaceAb,Qu ant Result Comment: NEGATIVE Performed By: #### AHBCOT, HBSAG, AHBSQ #### [facility] [employer] [facility] [place] [address] CONSULT PROG Observed: 02/15/2018 Status: COMPLETED Source: [place] 7:49 AM CLINIC OTHER CAMPUS REPOSITORY HNO ID: [id number] Author: Malena Bray Service: Nephrology Author Type: [...] 100mg daily 7. Outpatient dialysis placement at [facility] 3x/week under my service on discharge ? CBC Collected: 02/15/2018 Status: F Source: READ[place] 5:28 AM CLINIC OTHER CAMPUS REPOSITORY TYPE [...] 9.6 Performed By: #### CBC, CMP #### [facility] [address] [place] [address] COMP METABOLIC PANEL Collected: 02/15/2018 Status: F Source: READ[place] 5:28 AM CLINIC OTHER CAMPUS REPOSITORY TYPE [...] mg/dL Low Glucose 58 Result Comment: The [place] Diabetes Association (ADA) provides guidance for cutoff [...] Standards of Medical Care in Diabetes 2016, [place] [employer]. Diabetes Care. 2016.39(Suppl 1). LAB [...] GFR. Performed By: #### CBC, CMP #### [facility] [address] [place] [address] HEPATITIS B SURF. AG Collected: 02/15/2018 Status: F Source: READING 5:28 [facility] OTHER CAMPUS REPOSITORY TYPE CODE TESTS RESULT OUT OF REFERENCE UNITS RANGE LAB HBSAG Negative Hepatitis B Negative Surf. Ag Performed By: #### HBSAG, AHCV, AHBSAG #### [facility] [address] [place] [address] HEPATITIS C AB IA Collected: 02/15/2018 Status: F Source: READ[place] 5:28 [facility] OTHER [place] REPOSITORY TYPE CODE TESTS RESULT OUT OF REFERENCE UNITS RANGE LAB AHCV Negative Hepatitis C Ab Negative IA Performed By: #### HBSAG, AHCV, AHBSAG #### [facility] [address] [place] [address] HEPB SURFACE AB,QUAL Collected: 02/15/2018 Status: F Source: READ[place] 5:28 [facility] OTHER [place] REPOSITORY TYPE CODE TESTS RESULT OUT OF REFERENCE UNITS RANGE LAB AHBSAG Negative HepB Surface Negative Ab,Qual Result Comment: NEGATIVE Performed By: #### HBSAG, AHCV, AHBSAG #### [facility] [address] [place], [place] [address] OPERATIVE NO Observed: 02/15/2018 Status: COMPLETED Source: READING 12:00 AM CLINIC OTHER CAMPUS REPOSITORY HNO ID: [id number] Author: Michael Hogan Service: Vascular Surgery Author Type: Physician Type: Operative Report Filed: 02/22/2018 5:31 PM Note Text: [facility]- Operative Report LUZ BACA : 1940 AGE: 77 SEX: F ACCTNUM: [id number] [facility] SVC: [facility] LOCATION: [address] ATTENDING PHYSICIAN: Micha Moreno M.D. DATE OF PROCEDURE: 02/15/2018 SURGEON: Michael Hogan D.O. CLIMATOLOGY TEACHER: Shaila Tomas. ANESTHESIA: PREOPERATIVE DIAGNOSIS(ES): Acute kidney [...] PROCEDURE: The patient was taken to the laborer mine. She was placed supine on the laborer mine table. A huddle was performed. Following this, the right neck and chest were prepped and draped in standard sterile fashion. She was given pain medication during the procedure. When she was comfortable, I then was able to access her right internal jugular vein via micropuncture technique, exchanged to a 4-Kittitian micropuncture sheath and got a J-wire down into the inferior vena cava. We then serially dilated the track with a 10-Kittitian dilator. Following this, we planned in a [...] stable condition. Michael Hogan D.O. Vascular Surgery KB:[id number] CONSULT PROG Observed: 02/14/2018 Status: COMPLETED Source: READ[place] 6:21 PM [facility] OTHER CAMPUS REPOSITORY O ID: [id number] Author: Michael Hogan Service: Vascular Surgery Author [...] DAILY PRN sodium chloride 0.65 % 2 Mott (AYR, OCEAN) 2 Mott EACH NOSTRIL PRN gabapentin 200 mg cap(s) [...] THERAPY NT Observed: 02/14/2018 Status: COMPLETED Source: READ[place] 4:17 PM CLINIC OTHER CAMPUS REPOSITORY HNO ID: [id number] Author: Ana Luisa (S/Ot) Nasim, Student Service: [...] 02/14/2018 SERVICE TIME: 1557 to 1608 ROOM: [id number] Recommended Discharge Disposition: Home OT Recommended Discharge [...] Functions and Awareness Interventions Provided: Therapeutic Exercise (48677);Therapeutic Activity (87407) Therapeutic Exercise (37012) Treatment Minutes: 9 1 unit Skilled Intervention(s): [...] by therapist for safe technique. Therapeutic Activity (40380) Treatment Minutes: 2 0 units Skilled Intervention(s): [...] February 14, 2018 TIME: 4:17 PM PAGER: [phone] PROGRESS Observed: 02/14/2018 Status: COMPLETED Source: READ[place] 3:22 PM CLINIC OTHER CAMPUS REPOSITORY HNO ID: [id number] Author: Micha Moreno MD Service: Hospital Medicine Author Type: Physician Type: Progress Notes Filed: 02/14/2018 3:23 PM Note Text: SERVICE DATE: 02/14/2018 SERVICE TIME: 3:22 PM HOSPITAL MEDICINE PROGRESS NOTE NIGHT AND WEEKEND COVERAGE: Nights: Please contact pager [phone]. Reason for Admission/Observation: Elevated high-sensitivity troponin elevation [...] before resolving. Consultants: Dr. Asa Nair Disposition: [facility] SUBJECTIVE Interval HPI:No chest pain or [...] was reviewed. Pulse ox Most recent Xrays/CT Abrasive Mixer CARE COORDINATION: No Patient Care Coordination Note on file. ASSESSMENT AND PLAN Assessment AND Plan, all [facility] Problems Problem List as of 02/14/2018 Noted - Resolved A Acute renal failure superimposed on stage 3 chronic kidney disease ([facility]) 02/12/2018 - Present B Chronic combined systolic and diastolic CHF (congestive heart failure) ([facility]) 12/10/2017 - Present C Atrial fibrillation ([facility]) 09/23/2010 - Present D Pacemaker Unknown - Present E CAD (coronary artery disease) Unknown - Present F COPD (chronic obstructive pulmonary disease) ([facility]) Unknown - Present H Uncontrolled type 2 diabetes mellitus with stage 3 chronic kidney disease, with long-term current use of insulin ([facility]) 09/23/2004 - Present I Sleep apnea Unknown [...] Patient, Case Mangement and RN SIGNATURE: Micha Moreno MD PATIENT NAME: Luz Baca DATE: February 14, 2018 TIME: 3:22 PM PAGER/CONTACT #: [phone] Observed: 02/14/2018 Status: COMPLETED Source: [place] 12:31 PM CLINIC OTHER CAMPUS REPOSITORY HNO ID: [id number] Author: Megan (El) Cielo Service: Nutrition Therapy Author Type: Registered [...] 0659 02/12/18 0700 - 02/13/18 0659 02/13/18 0700 - 02/14/18 0659 02/14/18 0700 - 02/15/18 0659 Intake (ml) 840 342 120 940 210 Output (ml) 981 233 0664 1000 0 Net (ml) 239 [phone] -60 210 MNT Billing Type: Re-assess/15 min 1 unit SIGNATURE: Megan Buck RD PATIENT NAME: Luz Baca DATE: February 14, 2018 TIME: 12:31 PM CONSULT PROG Observed: 02/14/2018 Status: COMPLETED Source: [place] 10:05 AM [facility] REPOSITORY HNO ID: [id number] Author: Krishan Irwin Rai Service: Pulmonary Disease [...] data. Krishan Irwin Rai, MD Staff, Respiratory [place] [facility] Pager #[phone] SUBJECTIVE CHIEF COMPLAINT: Dyspnea INTERVAL HPI:Luz Baca [...] DAILY PRN sodium chloride 0.65 % 2 Mott (AYR, OCEAN) 2 Mott EACH NOSTRIL PRN gabapentin 200 mg cap(s) [...] 14, 2018 TIME: 10:05 AM PAGER/CONTACT #: [phone] CASE MANAGEM Observed: 02/14/2018 Status: COMPLETED Source: [place] 8:42 AM [facility] OTHER [place] REPOSITORY HNO ID: [id number] Author: Vanessa Loomis (Rn) ALLYSON Gonzalez Service: Case Management Author Type: Registered Nurse Type: Care Mgt Progress Note Filed: 02/14/2018 8:46 AM Note Text: CARE MANAGEMENT PROGRESS NOTE SERVICE DATE: 02/14/2018 SERVICE TIME: 8:42 AM LOS: 17 days EMR reviewed. Spoke to Raymond gonzáles [phone] about this patient. Need Hep Panel Lab, Need Tunnel Cath, Need First Treatment. Referral sent as Ordered Rubens Spence , with plan for a Wednesday dc . SIGNATURE: Vanessa Gonzalez RN PATIENT NAME: Luz Baca DATE: February 14, 2018 TIME: 8:42 AM PAGER/CONTACT #: [phone] CONSULT PROG Observed: 02/14/2018 Status: COMPLETED Source: [place] 7:30 AM [facility] OTHER CAMPUS REPOSITORY HNO ID: [id number] Author: Malena Bray Service: Nephrology Author Type: [...] 100mg daily 7. Outpatient dialysis placement at [facility] 3x/week under my service on discharge ? CBC Collected: 02/14/2018 Status: F Source: READ[place] 5:07 AM CLINIC OTHER CAMPUS REPOSITORY TYPE [...] 9.4 Performed By: #### CBC, CMP #### [facility] [address] [facility] [phone] COMP METABOLIC PANEL Collected: 02/14/2018 Status: F Source: READ[place] 5:07 AM CLINIC OTHER CAMPUS REPOSITORY TYPE [...] mg/dL Glucose High 103 Result Comment: The [place] Diabetes Association (ADA) provides guidance for cutoff [...] Standards of Medical Care in Diabetes 2016, [place] [employer]. Diabetes Care. 2016.39(Suppl 1). LAB [...] GFR. Performed By: #### CBC, CMP #### [facility] [address] [place] [address] PROGRESS Observed: 02/13/2018 Status: COMPLETED Source: [place] 3:33 PM CLINIC OTHER CAMPUS REPOSITORY O ID: [id number] Author: Russell Pedersen Service: General Internal Medicine Author Type: Physician Type: Progress Notes Filed: 02/13/2018 3:40 PM Note Text: INTERNAL MEDICINE PROGRESS NOTE SERVICE DATE: 02/13/2018 SERVICE TIME: 1535 ADMITTING PHYSICIAN: Gloria Montana Subjective CHIEF COMPLAINT: sob Current Facility-Administered Medications: [...] DAILY PRN sodium chloride 0.65 % 2 Mott (AYR, OCEAN) 2 Mott EACH NOSTRIL PRN gabapentin 200 mg cap(s) [...] systolic and diastolic CHF (congestive heart failure) ([facility]) POA: Yes Assessment AND Plan: BNP increased from 1300 to 2941 this admit despite attempted diuresis. 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 Plan for tunneled cath on and then start HD Medication and Non-Pharmacologic VTE Prophylaxis/Anticoagulants 01/27/182129 vte non-pharmacologic prophylaxis - none indicated 01/27/182129 vte current anticoag therapy VTE Prophylaxis: VTE prophylaxis appropriate SIGNATURE: Russell Pedersen MD PATIENT NAME: Luz Baca DATE: February 13, 2018 TIME: 3:33 PM PAGER/CONTACT #: [phone] CONSULT PROG Observed: 02/13/2018 Status: COMPLETED Source: READ[place] 2:41 PM CLINIC OTHER CAMPUS REPOSITORY HNO ID: [id number] Author: Malena Bray Service: Nephrology Author Type: [...] 100mg daily 7. Outpatient dialysis placement at [facility] 3x/week under my service on discharge ? PROGRESS Observed: 02/13/2018 Status: COMPLETED Source: READ[place] 12:16 PM CLINIC OTHER CAMPUS REPOSITORY O ID: [id number] Author: Krishan Irwin Rai Service: Pulmonary Disease [...] DAILY PRN sodium chloride 0.65 % 2 Mott (AYR, OCEAN) 2 Mott EACH NOSTRIL PRN apixaban 2.5 mg tab(s) [...] 13, 2018 TIME: 12:17 PM PAGER/CONTACT #: [phone] I have personally interviewed and examined the [...] any, are noted. Krishan Irwin Rai, MD, [facility] Staff, Pulmonary and Critical Care Medicine [facility] [place] Pager #[phone] CBC Collected: 02/13/2018 Status: F Source: READ[place] 6:21 AM CLINIC OTHER CAMPUS REPOSITORY TYPE [...] 9.5 Performed By: #### CBC, CMP #### [facility] [address] [facility] [phone] COMP METABOLIC PANEL Collected: 02/13/2018 Status: F Source: READ[place] 6:21 AM CLINIC OTHER CAMPUS REPOSITORY TYPE [...] 74-99 mg/dL Glucose 89 Result Comment: The [place] Diabetes Association (ADA) provides guidance for cutoff [...] Standards of Medical Care in Diabetes 2016, [place] [employer]. Diabetes Care. 2016.39(Suppl 1). LAB [...] GFR. Performed By: #### CBC, CMP #### [facility] [address] [place] [address] NURSING PROG Observed: 02/13/2018 Status: COMPLETED Source: READING 4:40 AM [facility] REPOSITORY HNO ID: [id number] Author: Catarina (Rn) ALLYSON Jack Service: Nursing Author Type: Registered Nurse Type: Nursing Progress Note Filed: 02/13/2018 4:41 AM Note Text: Nursing Progress Note Patient Name: Luz Baca Patient Location: [place] [id number] Daily Note: 0330: Patients goodson fell out, Dr. Hart notified and said it was okay to leave out This note was completed by: Catarina Jack RN CONSULT PROG Observed: 02/12/2018 Status: COMPLETED Source: READING 12:44 PM [facility] REPOSITORY HNO ID: [id number] Author: Malena Bray Service: Nephrology Author Type: [...] 100mg daily 7. Outpatient dialysis placement at [facility] 3x/week under my service ? CONSULT PROG Observed: 02/12/2018 Status: COMPLETED Source: READ[place] 10:41 AM [facility] OTHER CAMPUS REPOSITORY O ID: [id number] Author: Dina Bowman MD Service: Endocrinology Author [...] DAILY PRN sodium chloride 0.65 % 2 Mott (AYR, OCEAN) 2 Mott EACH NOSTRIL PRN apixaban 2.5 mg tab(s) [...] 46.0 % 35.1 (L) Dina Bowman MD [facility] Endocrinology and Metabolism [place] [facility] February 12, 2018 10:41 AM PROGRESS Observed: 02/12/2018 Status: COMPLETED Source: READING 10:16 AM [facility] OTHER CAMPUS REPOSITORY O ID: [id number] Author: Russell Pedersen Service: General Internal Medicine Author Type: Physician Type: Progress Notes Filed: 02/12/2018 10:25 AM Note Text: INTERNAL MEDICINE PROGRESS NOTE SERVICE DATE: 02/12/2018 SERVICE TIME: 1015 ADMITTING PHYSICIAN: Gloria Montana Subjective CHIEF COMPLAINT: Chest pain Current Facility-Administered [...] DAILY PRN sodium chloride 0.65 % 2 Mott (AYR, OCEAN) 2 Mott EACH NOSTRIL PRN apixaban 2.5 mg tab(s) [...] VTE Prophylaxis: VTE prophylaxis appropriate SIGNATURE: Russell Pedersen MD PATIENT NAME: Luz Baca DATE: February 12, 2018 TIME: 10:16 AM PAGER/CONTACT #: [phone] PROGRESS Observed: 02/12/2018 Status: COMPLETED Source: READ[place] 4:22 AM CLINIC OTHER CAMPUS REPOSITORY HNO ID: [id number] Author: Downtime Note Service: (none) Author Type: (none) Type: Progress Notes Filed: 02/12/2018 4:27 AM Note Text: Epic Scheduled Downtime: 02/11/2018 11:34:32 PM to 02/12/2018 4:17:42 AM CBC Collected: 02/12/2018 Status: F Source: READING 12:16 AM CLINIC OTHER CAMPUS REPOSITORY TYPE [...] Performed By: #### CBC, MG1, CMP #### [facility] [address] [place] [address] MAGNESIUM Collected: 02/12/2018 Status: F Source: READING 12:16 AM [facility] OTHER CAMPUS REPOSITORY TYPE CODE TESTS RESULT OUT OF REFERENCE UNITS RANGE LAB MG 1.7-2.3 mg/dL High Magnesium 2.8 Performed By: #### CBC, MG1, CMP #### [facility] [address] [place] [address] COMP METABOLIC PANEL Collected: 02/12/2018 Status: F Source: READ[place] 12:16 AM [facility] OTHER CAMPUS REPOSITORY TYPE CODE TESTS RESULT [...] mg/dL Glucose High 125 Result Comment: The [place] Diabetes Association (ADA) provides guidance for cutoff [...] Standards of Medical Care in Diabetes 2016, [place] [employer]. Diabetes Care. 2016.39(Suppl 1). LAB [...] Performed By: #### CBC, MG1, CMP #### [facility] [address] [place] [address] THERAPY NT Observed: 02/12/2018 Status: COMPLETED Source: READING 12:03 AM [facility] REPOSITORY HNO ID: [id number] Author: Patience (Telephone Answering Service Operator) Aman Service: Respiratory Therapy Author Type: Registered Resp Therapist Type: Therapy (PT/OT/Speech/Resp) Filed: 02/12/2018 5:59 AM Note Text: Pt refused cpap at this time. No distress noted CONSULT Observed: 02/11/2018 Status: COMPLETED Source: READING 8:13 PM [facility] REPOSITORY HNO ID: [id number] Author: Michael Hogan Service: Vascular Surgery Author [...] Martin - COPD (chronic obstructive pulmonary disease) ([facility]) Dr. Cruz - Depression - Diabetes ([facility]) - Diabetic neuropathy ([facility]) - Edema - GERD (gastroesophageal reflux disease) - Gout with hyperuricemia - HH (hiatus hernia) - HOCM (hypertrophic obstructive cardiomyopathy) ([facility]) S/P Septal Myectomy in 2003. Now with LVEF 50% and mod/severe pulm HTN. - HTN (hypertension) - Hyperlipidemia - Morbid obesity with BMI of 40.0-44.9, adult ([facility]) - Sleep apnea 2011 not on CPAP, unable to tolerate mask 02/2017 - SVT (supraventricular tachycardia) ([facility]) NSVT and questionable VT in 2003 post [...] age 89, HTN - Heart Failure Mother PA - Cancer Father age 71, lung cancer [...] DAILY PRN sodium chloride 0.65 % 2 Mott (AYR, OCEAN) 2 Mott EACH NOSTRIL PRN apixaban 2.5 mg tab(s) [...] February 11, 2018 TIME: 8:13 PM PAGER: [phone] THERAPY NT Observed: 02/11/2018 Status: COMPLETED Source: READ[place] 5:34 PM CLINIC OTHER CAMPUS REPOSITORY HNO ID: [id number] Author: Vaibhav (Pt) Martir Service: Physical Therapy Author Type: Physical Therapist Type: Therapy (PT/OT/Speech/Resp) Filed: 02/12/2018 11:43 AM Note Text: Physical Therapy Evaluation SERVICE DATE: 02/11/2018 SERVICE TIME: 1510 to 1540 ROOM: [place] [address] Recommended Discharge Disposition: Home PT Recommended Discharge [...] in 1 story accessible home. Recommending continued [facility] PT to assist in improving patient's [...] symptoms and signs-other Interventions Provided: Evaluation;Therapeutic Exercise (05681);Therapeutic Activity (89615);Gait Training (22625) $ Evaluation-Low (66560) Billed Units: 1 unit Therapeutic Exercise (08851) Treatment Minutes: 8 1 unit Skilled Intervention(s): [...] due to edema AND weakness. Therapeutic Activity (14674) Treatment Minutes: 6 0 units Skilled Intervention(s): [...] for safety in hospital setting Gait Training (16322) Treatment Minutes: 10 1 unit Skilled Intervention(s): [...] 11, 2018 TIME: 5:34 PM PAGER/CONTACT #: [phone] CONSULT PROG Observed: 02/11/2018 Status: COMPLETED Source: READING 4:02 PM [facility] OTHER CAMPUS REPOSITORY HNO ID: [id number] Author: Donnell Cruz Service: Pulmonary Disease Author Type: Physician Type: Consult Progress Note Filed: 02/11/2018 5:26 PM Note Text: [facility] [place], 02/11/2018: My partner Krishan Camp Rai, MD will be providing followup Pulmonary consultative coverage through Wednesday02/14/2018 AM, if needed. Donnell Cruz MD, [facility] [place] CASE MANAGEM Observed: 02/11/2018 Status: COMPLETED Source: READ[place] 3:36 PM [facility] REPOSITORY HNO ID: [id number] Author: Vanessa Loomis (Rn) ALLYSON Gonzalez Service: [...] 11, 2018 TIME: 3:36 PM PAGER/CONTACT #: [phone] NURSING PROG Observed: 02/11/2018 Status: COMPLETED Source: READING 3:18 PM [facility] REPOSITORY HNO ID: [id number] Author: Dianna (Rn) ALLYSON Melton Service: Nursing Author Type: Registered Nurse Type: Nursing Progress Note Filed: 02/11/2018 6:42 PM Note Text: Nursing Progress Note Patient Name: Luz Baca Patient Location: [place] [address] [address]- Daily Note:02/11 0700-Bedside report given. 0834-Patient is complaining of pain, medication given 0835- Dr Pedersen paged. To hold BP medications. 0839-Authorization to hold from Dr Pedersen 0934- Recheck pain. Down to 12/25. Patient resting in bed 1100-Patient would like information on dialysis, provided information 1200- Assessment done patient is more depressed that previous days, Education on the benefits of dialysis. 1400-Patient complaining of 04/26pain. Advised available to take medication in 40min. 1448-Gave pain medication. Still reporting 1735-Pagged Dr Pedersen, realized she was gone for the day and then paged the hospitalist for pain medication 1830-Ok one time dose of 50mg tramadol. This note was completed by: Dianna Melton RN PROGRESS Observed: 02/11/2018 Status: COMPLETED Source: [place] 12:52 PM CLINIC OTHER CAMPUS REPOSITORY HNO ID: [id number] Author: Russell Pedersen Service: General Internal Medicine Author Type: Physician Type: Progress Notes Filed: 02/11/2018 12:59 PM Note Text: INTERNAL MEDICINE PROGRESS NOTE SERVICE DATE: 02/11/2018 SERVICE TIME: 1300 ADMITTING PHYSICIAN: Gloria Montana Subjective CHIEF COMPLAINT: sob Current Facility-Administered Medications: [...] DAILY PRN sodium chloride 0.65 % 2 Mott (AYR, OCEAN) 2 Mott EACH NOSTRIL PRN apixaban 2.5 mg tab(s) [...] No resolved hospital problems. * SIGNATURE: Russell Pederesn MD PATIENT NAME: Luz Baca DATE: February 11, 2018 TIME: 12:53 PM PAGER/CONTACT #: [phone] CONSULT PROG Observed: 02/11/2018 Status: COMPLETED Source: READ[place] 9:34 AM CLINIC OTHER CAMPUS REPOSITORY HNO ID: [id number] Author: Malena Bary Service: Nephrology Author Type: Physician Type: Consult [...] CKD [address] my partner Dr[address] Martni 5. Hyperuricemia ? Plan: 1. One dose [...] ? CBC Collected: 02/11/2018 Status: F Source: READ[place] 5:13 AM [facility] OTHER CAMPUS REPOSITORY TYPE CODE TESTS RESULT [...] 9.8 Performed By: #### CBC, CMP #### [facility] [address] [facility] [phone] COMP METABOLIC PANEL Collected: 02/11/2018 Status: F Source: READ[place] 5:13 AM [facility] OTHER CAMPUS REPOSITORY TYPE CODE TESTS RESULT [...] mg/dL High Glucose 146 Result Comment: The [place] [employer] (ADA) provides guidance for cutoff [...] Standards of Medical Care in Diabetes 2016, [place] [employer]. Diabetes Care. 2016.39(Suppl 1). LAB [...] GFR. Performed By: #### CBC, CMP #### [facility] [address] [facility] [phone] THERAPY NT Observed: 02/10/2018 Status: COMPLETED Source: READ[place] 4:26 PM CLINIC OTHER CAMPUS REPOSITORY O ID: [id number] Author: Judit Nolasco Service: Physical Therapy Author Type: Physical Therapist Type: Therapy (PT/OT/Speech/Resp) Filed: 02/10/2018 4:38 PM Note Text: PHYSICAL THERAPY MISSED VISIT SERVICE DATE: 02/10/2018 SERVICE TIME: 1415 to 1425 ROOM: [place] [address] Attempted Evaluation. Patient not seen due to [...] CONSULT PROG Observed: 02/10/2018 Status: COMPLETED Source: [place] 4:24 PM CLINIC OTHER CAMPUS REPOSITORY O ID: [id number] Author: Malena Bray Service: Nephrology Author Type: [...] CKD 3 followed by my partner Dr. Bakhous 5. Hyperuricemia ? Plan: 1. Hold diuretics [...] CONSULT PROG Observed: 02/10/2018 Status: COMPLETED Source: [place] 3:20 PM [facility] OTHER CAMPUS REPOSITORY HNO ID: [id number] Author: Donnell Cruz Service: Pulmonary Disease Author Type: Physician Type: Consult Progress Note Filed: 02/11/2018 9:58 AM Note Text: [facility] [place], 02/10/2018: I have reviewed the interval history [...] 1. Dialysis and/or diuretic Rx, deferred to Employee Relations Director and Hospitalist, as I/O record, weight gain [...] also communicated this Impression directly to Dr. Pedersen as well. ? Donnell Cruz MD, [facility] Medical Office [place] [address] P: [phone] F: [phone] THERAPY NT Observed: 02/10/2018 Status: COMPLETED Source: [place] 2:40 PM CLINIC OTHER CAMPUS REPOSITORY HNO ID: [id number] Author: Judit (PtAlvarez Nolasco Service: Physical Therapy Author Type: Physical Therapist Type: Therapy (PT/OT/Speech/Resp) Filed: 02/10/2018 2:42 PM Note Text: PHYSICAL THERAPY MISSED VISIT SERVICE DATE: 02/10/2018 SERVICE TIME: 1035 to 1039 ROOM: [place] [address] Attempted Evaluation. Patient not seen due to [...] #: PROGRESS Observed: 02/10/2018 Status: COMPLETED Source: [place] 2:26 PM CLINIC OTHER CAMPUS REPOSITORY O ID: [id number] Author: Russell Pedersen Service: General Internal Medicine Author Type: Physician Type: Progress Notes Filed: 02/10/2018 2:39 PM Note Text: INTERNAL MEDICINE PROGRESS NOTE SERVICE DATE: 02/10/2018 SERVICE TIME: 1430 ADMITTING PHYSICIAN: Gloria Montana Subjective CHIEF COMPLAINT: Chest pain Current Facility-Administered [...] DAILY PRN sodium chloride 0.65 % 2 Mott (AYR, OCEAN) 2 Mott EACH NOSTRIL PRN apixaban 2.5 mg tab(s) [...] No resolved hospital problems. * SIGNATURE: Russell Pedersen MD PATIENT NAME: Luz Baca DATE: February 10, 2018 TIME: 2:26 PM PAGER/CONTACT #: [phone] THERAPY NT Observed: 02/10/2018 Status: COMPLETED Source: [place] 1:09 PM CLINIC OTHER CAMPUS REPOSITORY HNO ID: [id number] Author: Octavia Rivera/Magali Álvarez Service: Occupational Therapy Author Type: Occupational Therapist Type: Therapy (PT/OT/Speech/Resp) Filed: 02/10/2018 1:36 PM Note Text: Occupational Therapy Evaluation SERVICE DATE: 02/10/2018 SERVICE TIME: 1140 to 1230 ROOM: [place] [address] Recommended Discharge Disposition: Home OT Recommended Discharge [...] Functions and Awareness Interventions Provided: Evaluation;Therapeutic Activity (83735);Self Skilled Nursing Management (34987) $ Evaluation-Low (99779) Billed Units: 1 unit Therapeutic Activity (37599) Treatment Minutes: 15 1 unit Skilled Intervention(s): [...] to chair providing contact guard assist. Self Skilled Nursing Management (58845) Treatment Minutes: 25 2 units Skilled Intervention(s): [...] elevated K of 5.5: per chart MD Pedersen, she is fine with pt's K being [...] THERAPY NT Observed: 02/10/2018 Status: COMPLETED Source: [place] 11:01 AM [facility] OTHER CAMPUS REPOSITORY HNO ID: [id number] Author: Octavia De La Rosar/Magali Álvarez Service: Occupational Therapy Author Type: Occupational Therapist Type: Therapy (PT/OT/Speech/Resp) Filed: 02/10/2018 11:01 AM Note Text: OCCUPATIONAL THERAPY MISSED VISIT SERVICE DATE: 02/10/2018 SERVICE TIME: 1100 to 1100 ROOM: [place] [address] Attempted Evaluation. Patient not seen due to Declined (RN exiting room, pt requesting to hold therapy at this time.) Will attempt as able. SIGNATURE: LETICIA Cain/Elver PATIENT NAME: Luz Baca DATE: February 10, 2018 TIME: 11:01 AM PAGER/CONTACT #:[phone] NURSING PROG Observed: 02/10/2018 Status: COMPLETED Source: [place] 7:25 AM [facility] OTHER [place] REPOSITORY HNO ID: [id number] Author: Ella OsheaRnAlvarez Esquivel RN Service: Nursing [...] observe and check with patient. and Dr. Pedersen/Hospitalist notified via pager [phone]. After the initiated interventions, the following observation(s) were made: patient has no complaints. and nothing further noted. Will continue to observe and check with patient.. 1000: Spoke with MD Pedersen, she is fine with pt's K being 5.5, no correction needed. Also discussed other labs out of normal range. Ella Esquivel CBC Collected: 02/10/2018 Status: F Source: [place] 5:40 AM [facility] OTHER [place] REPOSITORY TYPE CODE TESTS RESULT OUT OF [...] Performed By: #### CBC, CMP, URIC #### [facility] [address] [facility] [phone] COMP METABOLIC PANEL Collected: 02/10/2018 Status: F Source: [place] 5:40 AM CLINIC OTHER CAMPUS REPOSITORY TYPE [...] mg/dL Glucose High 152 Result Comment: The [place] Diabetes Association (ADA) provides guidance for cutoff [...] Standards of Medical Care in Diabetes 2016, [place] [employer]. Diabetes Care. 2016.39(Suppl 1). LAB [...] Performed By: #### CBC, CMP, URIC #### [facility] [address] [place] [address] URIC ACID Collected: 02/10/2018 Status: F Source: [place] 5:40 AM CLINIC OTHER CAMPUS REPOSITORY TYPE CODE TESTS RESULT OUT OF RANGE REFERENCE UNITS LAB URIC 2.5-6.6 mg/dL High Uric Acid 14.9 Performed By: #### CBC, CMP, URIC #### [facility] [address] [place] [address] TSH Collected: 02/10/2018 Status: F Source: [place] 5:40 AM [facility] OTHER [place] REPOSITORY TYPE CODE TESTS RESULT OUT OF RANGE REFERENCE UNITS LAB TSH 0.400-5.500 uU/mL TSH 0.782 Performed By: #### TSH #### [facility] [address] [place], [place] [id number] T4 Collected: 02/10/2018 Status: F Source: [facility] 5:40 AM OTHER [place] REPOSITORY TYPE CODE TESTS RESULT OUT OF RANGE REFERENCE UNITS LAB T4 5.5-10.2 ug/dL Low T4 5.4 Performed By: #### T4 #### [facility] [address] [place], [place] [address] PROGRESS Observed: 02/09/2018 Status: COMPLETED Source: [place] 3:32 PM CLINIC OTHER CAMPUS REPOSITORY HNO ID: [id number] Author: Russell Pedersen Service: General Internal Medicine Author Type: Physician Type: Progress Notes Filed: 02/09/2018 3:41 PM Note Text: INTERNAL MEDICINE PROGRESS NOTE SERVICE DATE: 02/09/2018 SERVICE TIME: 1530 ADMITTING PHYSICIAN: Gloria Montana Subjective CHIEF COMPLAINT: sob Current Facility-Administered Medications: [...] DAILY PRN sodium chloride 0.65 % 2 Mott (AYR, OCEAN) 2 Mott EACH NOSTRIL PRN apixaban 2.5 mg tab(s) [...] No resolved hospital problems. * SIGNATURE: Russell Pedersen MD PATIENT NAME: Luz Baca DATE: February 09, 2018 TIME: 3:33 PM PAGER/CONTACT #: [phone] CASE MANAGEM Observed: 02/09/2018 Status: COMPLETED Source: [place] 12:20 PM [facility] OTHER CAMPUS REPOSITORY HNO ID: [id number] Author: Vanessa Loomis (Rn) ALLYSON Gonzalez Service: Case Management Author Type: Registered Nurse Type: Care Mgt Progress Note Filed: 02/09/2018 12:21 PM Note Text: CARE MANAGEMENT PROGRESS NOTE SERVICE DATE: 02/09/2018 SERVICE TIME: 12:20 PM LOS: 12 days EMR reviewed. Spoke to Dr Pedersen. NEED PT/OT notes, Possible SNF needs. POSSIBLE WEEKEND DC PER MD. High Risk PCC Remi Rehn On 3L n/c today Chronic 2.5 LO2 at home. From home with dtr. [facility]ose [facility] NEED F2F, Dtr will transport. SIGNATURE: Vanessa Gonzalez RN PATIENT NAME: Luz Baca DATE: February 09, 2018 TIME: 12:20 PM PAGER/CONTACT #: [phone] CONSULT PROG Observed: 02/09/2018 Status: COMPLETED Source: [place] 12:02 PM [facility] OTHER [place] REPOSITORY HNO ID: [id number] Author: Shruti Nair Service: Endocrinology Author Type: Physician Type: Consult Progress Note Filed: 02/09/2018 12:05 PM Note Text: DIABETES PROGRESS NOTE PATIENT NAME: uLz Baca SERVICE DATE: 02/09/2018 ASSESSMENT AND PLAN [...] Diagnosis Date - Arthritis - Atrial fibrillation ([facility]) - CAD (coronary artery disease) stents x9, defibrillator, CABG. Seeing Dr. Cardona - Cardiac defibrillator in place - Cardiomegaly - Carotid artery disease ([facility]) left - Chronic kidney disease (CKD) stage G3b/A2, moderately decreased glomerular filtration rate (GFR) between 30-44 mL/min/1.73 square meter and albuminuria creatinine ratio between 30-299 mg/g Dr. Martin - COPD (chronic obstructive pulmonary disease) ([facility]) Dr. Cruz - Depression - Diabetes ([facility]) - Diabetic neuropathy ([facility]) - Edema - GERD (gastroesophageal reflux disease) - Gout with hyperuricemia - HH (hiatus hernia) - HOCM (hypertrophic obstructive cardiomyopathy) ([facility]) S/P Septal Myectomy in 2003. Now with LVEF 50% and mod/severe pulm HTN. - HTN (hypertension) - Hyperlipidemia - Morbid obesity with BMI of 40.0-44.9, adult ([facility]) - Sleep apnea 2011 not on CPAP, unable to tolerate mask 02/2017 - SVT (supraventricular tachycardia) ([facility]) NSVT and questionable VT in 2003 post op CURRENT MEDICATION: Current Facility-Administered Medications: furosemide 80 mg tab(s) (LASIX) 80 mg ORAL BID 9a/5p Amlena A Argekar 80 mg at 02/09/18 0856 [...] tab(s) 3 mg ORAL AT BEDTIME Caroline (Pickling Tank Operator) Garcia 3 mg at 02/08/182103 simvastatin 20 [...] MEALS Shruti Hasan 4 Units at 02/09/18 0906 carvedilol 3.125 mg tab(s) (COREG) 3.125 mg [...] mg cap(s) (COLACE) 100 mg ORAL BID [place] A (Md) Thuestad 100 mg at 02/08/18 2104 polyethylene glycol 3350 17 g packet (MIRALAX, GLYCOLAX) 17 g ORAL DAILY Radha A Bryan) Thuestad 17 g at 02/02/18 1046 bisacodyl 10 mg suppository (DULCOLAX) 10 mg RECTAL DAILY PRN Radha Adams) Thuestad sodium chloride 0.65 % 2 Mott (AYR, OCEAN) 2 Mott EACH NOSTRIL PRN Zuhair Wick apixaban 2.5 mg tab(s) (ELIQUIS) 2.5 mg ORAL BID [place] Ebonie Adams) Thuestad 2.5 mg at 02/09/18 [...] AF, DESENEX) 1 application TOPICAL BID Gloria Montana 1 application at 02/09/18 1049 CURRENT ALLERGIES: [...] 74 - 99 mg/dL Final Comment: Meter ID:[id number] SIGNATURE: Shruti Nair MD DATE: February 09, 2018 CONSULT Observed: 02/09/2018 Status: COMPLETED Source: [place] 11:00 AM CLINIC OTHER CAMPUS REPOSITORY HNO ID: [id number] Author: Donnell Cruz Service: Pulmonary Disease Author Type: Physician Type: Consults Filed: 02/10/2018 7:59 AM Note Text: [facility] [place] Consultation Note, 02/09/2018: Introduction: The patient is seen in consultation today for evaluation of COPD, pulmonary hypertension. This consultation is requested by Russell Pedersen MD. A copy of this encounter will [...] home. This is the 4th admission to [facility] in 2018. PAST MEDICAL HISTORY Diagnosis Date [...] Martin - COPD (chronic obstructive pulmonary disease) ([facility]) Dr. Cruz - Depression - Diabetes ([facility]) - Diabetic neuropathy ([facility]) - Edema - GERD (gastroesophageal reflux disease) - Gout with hyperuricemia - HH (hiatus hernia) - HOCM (hypertrophic obstructive cardiomyopathy) ([facility]) S/P Septal Myectomy in 2003. Now with LVEF 50% and mod/severe pulm HTN. - HTN (hypertension) - Hyperlipidemia - Morbid obesity with BMI of 40.0-44.9, adult ([facility]) - Sleep apnea 2011 not on CPAP, unable to tolerate mask 02/2017 - SVT (supraventricular tachycardia) ([facility]) NSVT and questionable VT in 2003 post [...] age 89, HTN - Heart Failure Mother PA - Cancer Father age 71, lung cancer [...] ?0.93 ?37 FEV1/FVC ? % ?0.75 ?0.80 PAL455% ? ?Sec ? ? ? 6.50 Diffusing [...] The mitral valve leaflets are structurally normal. Beaver mitral valve. There is trivial (trivial - 1+) mitral valve regurgitation. TRICUSPID VALVE Beaver tricuspid valve. There is moderate (2+ - [...] to Bariatric Surgery program. Donnell Cruz MD, [facility] Medical Office [address] [address] P: [phone] F: [phone] NURSING PROG Observed: 02/09/2018 Status: COMPLETED Source: [place] 9:00 AM [facility] REPOSITORY HNO ID: [id number] Author: Reanna (Rn) ALLYSON Davalos Service: Nursing Author Type: Registered Nurse Type: Nursing Progress Note Filed: 02/09/2018 9:16 AM Note Text: Nursing Progress Note Patient Name: Luz Baca Patient Location: [place] [id number] Daily Note: Pt AANDO x 3, calm and cooperative. Pt sitting in bedside chair. 0900 Pt ate breakfast and medication administered. O2 at 3L/min NC with pulse ox 96% and reduced to 2L/min NC. This note was completed by: Reanna Davalos RN CONSULT PROG Observed: 02/09/2018 Status: COMPLETED Source: [place] 7:02 AM [facility] REPOSITORY HNO ID: [id number] Author: Malena Bray Service: Nephrology Author Type: [...] worsening pulmonary situation, might need to consider PRESIDENT & FOUNDER (patient would only want this as a [...] ? CBC Collected: 02/09/2018 Status: F Source: [place] 5:03 AM CLINIC OTHER CAMPUS REPOSITORY TYPE CODE [...] 9.8 Performed By: #### CBC, CMP #### [facility] [address] [facility] [phone] COMP METABOLIC PANEL Collected: 02/09/2018 Status: F Source: [place] 5:03 AM [facility] OTHER CAMPUS REPOSITORY TYPE CODE TESTS RESULT [...] mg/dL Glucose High 230 Result Comment: The [place] Diabetes Association (ADA) provides guidance for cutoff [...] Standards of Medical Care in Diabetes 2016, [place] [employer]. Diabetes Care. 2016.39(Suppl 1). LAB [...] GFR. Performed By: #### CBC, CMP #### [facility] [address] [facility] [phone] NURSING PROG Observed: 02/08/2018 Status: COMPLETED Source: [place] 8:48 PM CLINIC OTHER CAMPUS REPOSITORY O ID: [id number] Author: Sohail (Rn) ALLYSON Hernandez Service: (none) Author Type: Registered Nurse Type: Nursing Progress Note Filed: 02/09/2018 6:09 AM Note Text: Nursing Progress Note Patient Name: Luz Baca Patient Location: [id number] Daily Note:02/08/182047 Spoke with Dr. Feliciano regarding pt blood sugar, orders received, see eMAR 0608 Text paged hospitalist regarding AM labs This note was completed by: Sohail Hernandez RN PLAN OF CARE Observed: 02/08/2018 Status: COMPLETED Source: [place] 5:42 PM CLINIC OTHER CAMPUS REPOSITORY HNO ID: [id number] Author: Som Feliciano Service: Endocrinology Author Type: [...] each meal and at bedtime. Call Endo deputy felony clerk if blood sugar is less than 80 or more than 210. We will follow. Som Feliciano MD February 08, 2018 CONSULT PROG Observed: 02/08/2018 Status: COMPLETED Source: [place] 3:47 PM CLINIC OTHER CAMPUS REPOSITORY HNO ID: [id number] Author: Jordi Cevallos Service: Nephrology Author Type: [...] 3: baseline creatinine is mid 1 range. [place] urine with no significant proteinuria ?? PLAN: [...] TROPONIN T Collected: 02/08/2018 Status: F Source: [place] 2:14 PM CLINIC OTHER [place] REPOSITORY TYPE CODE TESTS RESULT OUT OF REFERENCE UNITS RANGE LAB TROPT 0.000-0.029 ng/mL High Troponin T 0.063 Result Comment: Called to and read back by: Brian Almonte [address] [place] [address] 02/08/18 Myla Kramer Performed By: #### MARIN #### [facility] [address] [place] [address] NT PRO BNP Collected: 02/08/2018 Status: F Source: [place] 2:14 PM [facility] OTHER [place] REPOSITORY TYPE CODE TESTS RESULT OUT OF REFERENCE UNITS RANGE LAB PBNP <450 pg/mL High PRO B Natr 2941 Peptide Performed By: #### NTBNP #### [facility] [address] [place] [address] PROGRESS Observed: 02/08/2018 Status: COMPLETED Source: [place] 1:27 PM CLINIC OTHER CAMPUS REPOSITORY HNO ID: [id number] Author: Russell Pedersen Service: General Internal Medicine Author Type: Physician Type: Progress Notes Filed: 02/08/2018 2:45 PM Note Text: INTERNAL MEDICINE PROGRESS NOTE SERVICE DATE: 02/08/2018 SERVICE TIME: 1330 ADMITTING PHYSICIAN: Gloria Montana Subjective CHIEF COMPLAINT: sob Current Facility-Administered Medications: [...] DAILY PRN sodium chloride 0.65 % 2 Mott (AYR, OCEAN) 2 Mott EACH NOSTRIL PRN apixaban 2.5 mg tab(s) [...] - - - 18 - - 02/07/18 195 115/75 (!) 35.7 ?C (96.2 ?F) Oral [...] No resolved hospital problems. * SIGNATURE: Russell Pedersen MD PATIENT NAME: Luz Baca DATE: February 08, 2018 TIME: 1:27 PM PAGER/CONTACT #: [phone] CBC Collected: 02/08/2018 Status: F Source: [place] 4:18 AM [facility] OTHER CAMPUS REPOSITORY TYPE CODE TESTS RESULT [...] 9.9 Performed By: #### CBC, CMP #### [facility] [address] [place] [address] COMP METABOLIC PANEL Collected: 02/08/2018 Status: F Source: [place] 4:18 AM [facility] OTHER [place] REPOSITORY TYPE CODE TESTS RESULT OUT OF REFERENCE UNITS RANGE LAB TP 6.3-8.0 g/dL Protein, Total 6.5 LAB ALB 3.9-4.9 g/dL Low Albumin 3.3 LAB CA 8.5-10.2 mg/dL Calcium, Total 8.9 LAB TBIL 0.2-1.3 mg/dL Bilirubin, Total 0.4 LAB ALKP 32-117 U/L Alkaline Phosphatase 89 LAB AST 13-35 U/L AST 17 LAB GLU 74-99 mg/dL Glucose High 131 Result Comment: The [place] Diabetes Association (ADA) provides guidance for cutoff [...] Standards of Medical Care in Diabetes 2016, [place] [employer]. Diabetes Care. 2016.39(Suppl 1). LAB [...] GFR. Performed By: #### CBC, CMP #### [facility] [address] [facility] [phone] NURSING PROG Observed: 02/07/2018 Status: COMPLETED Source: [place] 8:50 PM CLINIC OTHER CAMPUS REPOSITORY HNO ID: [id number] Author: Sohail (Rn) ALLYSON Hernandez Service: (none) Author Type: Registered Nurse Type: Nursing Progress Note Filed: 02/07/2018 10:42 PM Note Text: Nursing Progress Note Patient Name: Luz Baca Patient Location: [id number] Daily Note:02/07/182049 Paged hospitalist regarding pt reporting pain and temp 2110 Re-paged hospitalist [phone] Orders for Kpad and prn pain meds 2241 Paged hospitalist for pt requesting something to help her sleep This note was completed by: Sohail Hernandez RN NURSING PROG Observed: 02/07/2018 Status: COMPLETED Source: [place] 8:12 PM [facility] REPOSITORY HNO ID: [id number] Author: Sohail (Rn) ALLYSON Hernandez Service: (none) Author Type: Registered Nurse Type: Nursing Progress Note Filed: 02/07/2018 8:13 PM Note Text: Nursing Progress Note Patient Name: Luz Baca Patient Location: [place] [id number] Daily Note:02/07/[address] Ramírez, orders to hold tonight's dose of Amiodarone. Order to modify Amiodarone to 1x/day, 200 mg. This note was completed by: Sohail Hernandez RN PLAN OF CARE Observed: 02/07/2018 Status: COMPLETED Source: [place] 2:09 PM [facility] REPOSITORY HNO ID: [id number] Author: Vanessa Loomis (Rn) Carlos RN Service: [...] Disease, With Long-Term Current Use of Insulin ([facility]) Class 1 Obesity Due to Excess Calories With Serious Comorbidity in Adult Gout Pacemaker Chronic Combined Systolic and Diastolic Chf (Congestive Heart Failure) ([facility]) Pulmonary Hypertension Chest Pain in Adult Attendees Present at Rounds: Fire Prevention Forester: Vanessa Family: daughter Patient: Luz Baca Staff [...] for Changes to Baseline Status Cardiac Goals/Outcomes: VICE PRESIDENT PROCESS, Cardiac Enzymes, K, Mg, Hgb/Hct Levels Within [...] to Baseline Status (Unexplained Decrease in IFMS Score);[place] Safety Measures;Pressure Ulcer Prevention Mobility Patient/Family Goals: [...] February 07, 2018 TIME: 2:09 PM CSN: [id number] PROGRESS Observed: 02/07/2018 Status: COMPLETED Source: [place] 12:33 PM CLINIC OTHER CAMPUS REPOSITORY O ID: [id number] Author: Russell Pedersen Service: General Internal Medicine Author Type: Physician Type: Progress Notes Filed: 02/07/2018 12:38 PM Note Text: INTERNAL MEDICINE PROGRESS NOTE SERVICE DATE: 02/07/2018 SERVICE TIME: 1233 ADMITTING PHYSICIAN: Gloria Montana Subjective CHIEF COMPLAINT: sob Current Facility-Administered Medications: [...] DAILY PRN sodium chloride 0.65 % 2 Mott (AYR, OCEAN) 2 Mott EACH NOSTRIL PRN apixaban 2.5 mg tab(s) [...] No resolved hospital problems. * SIGNATURE: Russell Pedersen MD PATIENT NAME: Luz Baca DATE: February 07, 2018 TIME: 12:33 PM PAGER/CONTACT #: [phone] XR CHEST 1V FRONTAL Observed: 02/07/2018 Status: F Source: [facility] 11:54 AM [facility] OTHER CAMPUS REPOSITORY * * *Final Report* [...] Cardiomediastinal silhouette: Moderately enlarged, stable Other: . Top Lift Cutter: SALINAS Transcribe Date/Time: Feb 07 2018 12:51P Dictated by : ANN MARIE CARSON MD This examination was interpreted and the report reviewed and electronically signed by: ANN MARIE CARSON MD on Feb 07 2018 12:52PM EST [id number] NUTRITION Observed: 02/07/2018 Status: COMPLETED Source: [place] 10:57 AM [facility] OTHER CAMPUS REPOSITORY HNO ID: [id number] Author: Violet Valente Service: (none) Author Type: [...] min 1 unit SIGNATURE: Violet Valente RD, NEY PATIENT NAME: Luz Baca DATE: February 07, 2018 TIME: 10:57 AM PAGER: CONSULT PROG Observed: 02/07/2018 Status: COMPLETED Source: [place] 7:45 AM CLINIC OTHER CAMPUS REPOSITORY HNO ID: [id number] Author: Jordi Cevallos Service: Nephrology Author Type: [...] 3: baseline creatinine is mid 1 range. [place] urine with no significant proteinuria ?? PLAN: [...] AM CBC Collected: 02/07/2018 Status: F Source: [place] 5:18 AM CLINIC OTHER CAMPUS REPOSITORY TYPE [...] 9.9 Performed By: #### CBC, CMP #### [facility] [address] [facility] [phone] COMP METABOLIC PANEL Collected: 02/07/2018 Status: F Source: [place] 5:18 AM CLINIC OTHER CAMPUS REPOSITORY TYPE [...] 74-99 mg/dL Glucose 87 Result Comment: The [place] Diabetes Association (ADA) provides guidance for cutoff [...] Standards of Medical Care in Diabetes 2016, [place] [employer]. Diabetes Care. 2016.39(Suppl 1). LAB [...] GFR. Performed By: #### CBC, CMP #### [facility] [address] [facility] [phone] PROGRESS Observed: 02/06/2018 Status: COMPLETED Source: [place] 3:39 PM CLINIC OTHER CAMPUS REPOSITORY O ID: [id number] Author: Radha Edmonds Service: Hospital Medicine Author Type: Physician Type: Progress Notes Filed: 02/07/2018 5:55 AM Note Text: HOSPITAL MEDICINE PROGRESS NOTE Name: Luz Baca SERVICE DATE: 02/06/2018 SERVICE TIME: 3:39 PM LOCATION / ROOM: [facility]0262/[id number] Correction of time of service Radha Edmonds MD February 07, 2018 5:55 AM Hospital Medicine/Primary Attending: Radha Edmonds MD NIGHT COVERAGE BETWEEN 5.30P-7.30A Page [phone] ASSESSMENT AND PLAN Chest pain in adult [...] Jordi Cevallos Last Rate: 1 mL/hr at 02/07/18 [...] ORAL q 4 H PRN Radha Adams) Linkuestad insulin lispro 7 Units injection (rapid acting) (HumaLOG) 7 Units SUBCUTANEOUS w MEALS Shruti Hasan 7 Units at 02/06/18 1701 insulin lispro injection (rapid acting) (HumaLOG) SUBCUTANEOUS w MEALS Shruti Hasan 6 Units at 02/05/18 1214 carvedilol 3.125 mg tab(s) (COREG) 3.125 mg ORAL BID w MEALS Ceeb Ronal Darrell 3.125 mg at 02/06/18 1700 [...] Adams) Thuestad sodium chloride 0.65 % 2 Mott (AYR, OCEAN) 2 Mott EACH NOSTRIL PRN Zuhair Wick apixaban 2.5 [...] AF, DESENEX) 1 application TOPICAL BID Gloria Montana 1 application at 02/06/182008 OBJECTIVE PHYSICAL EXAM: [...] Patient is already anti-coagulated. Disposition: Home with [facility] Plan of care discussed with: Patient SIGNATURE: Radha Edmonds MD DATE: February 07, 2018 TIME: 5:39 AM CONSULT PROG Observed: 02/06/2018 Status: COMPLETED Source: [place] 12:40 PM CLINIC OTHER CAMPUS REPOSITORY HNO ID: [id number] Author: Mauro Ramírez Service: Cardiovascular Medicine Author [...] DAILY PRN sodium chloride 0.65 % 2 Mott (AYR, OCEAN) 2 Mott EACH NOSTRIL PRN apixaban 2.5 mg tab(s) [...] fair to good. SIGNATURE: Mauro Ramírez MD [facility] PATIENT NAME: Luz Baca DATE: February 06, 2018 TIME: 12:41 PM Cell phone #: [phone] CONSULT PROG Observed: 02/06/2018 Status: COMPLETED Source: [place] 11:24 AM CLINIC OTHER CAMPUS REPOSITORY O ID: [id number] Author: Jordi Cevallos Service: Nephrology Author Type: [...] 3: baseline creatinine is mid 1 range. [place] urine with no significant proteinuria ? PLAN: [...] AM CBC Collected: 02/06/2018 Status: F Source: [place] 5:16 AM CLINIC OTHER CAMPUS REPOSITORY TYPE [...] 10.0 Performed By: #### CBC, CMP #### [facility] [address] [facility] [phone] COMP METABOLIC PANEL Collected: 02/06/2018 Status: F Source: READ[place] 5:16 AM [facility] OTHER CAMPUS REPOSITORY TYPE CODE TESTS RESULT OUT OF REFERENCE UNITS RANGE LAB TP 6.3-8.0 g/dL Protein, Total 6.5 LAB ALB 3.9-4.9 g/dL Low Albumin 3.3 LAB CA 8.5-10.2 mg/dL Calcium, Total 8.9 LAB TBIL 0.2-1.3 mg/dL Bilirubin, Total 0.3 LAB ALKP 32-117 U/L Alkaline Phosphatase 94 LAB AST 13-35 U/L AST 19 LAB GLU 74-99 mg/dL Glucose High 123 Result Comment: The [place] Diabetes Association (ADA) provides guidance for cutoff [...] Standards of Medical Care in Diabetes 2016, [place] [employer]. Diabetes Care. 2016.39(Suppl 1). LAB [...] GFR. Performed By: #### CBC, CMP #### [facility] [address] [facility] [phone] NURSING PROG Observed: 02/06/2018 Status: COMPLETED Source: [place] 12:06 AM [facility] OTHER CAMPUS REPOSITORY [facility] ID: [id number] Author: Janet (Rn) ALLYSON Pineda Service: (none) Author Type: Registered Nurse Type: Nursing Progress Note Filed: 02/06/2018 12:09 AM Note Text: Nursing Progress Note Patient Name: Luz Baca Patient Location: [place] [id number] Daily Note: 2300 Made hospitalist aware of magnesium lab results 0005 Patient c/o of SOB, requesting breathing treatment. Respiratory therapy contacted. This note was completed by: Janet Pineda RN PROGRESS Observed: 02/05/2018 Status: COMPLETED Source: [place] 4:09 PM CLINIC OTHER CAMPUS REPOSITORY HNO ID: [id number] Author: Radha Adams) Kendal Service: Hospital Medicine Author Type: Physician Type: Progress Notes Filed: 02/05/2018 4:18 PM Note Text: HOSPITAL MEDICINE PROGRESS NOTE Name: Luz Baca SERVICE DATE: 02/05/2018 SERVICE TIME: 4:09 PM LOCATION / ROOM: [facility]0262/[id number] Hospital Medicine/Primary Attending: Radha Edmonds MD NIGHT COVERAGE BETWEEN 5.30P-7.30A Page [phone] ASSESSMENT AND PLAN Chest pain in adult [...] Adams) Thuestad sodium chloride 0.65 % 2 Mott (AYR, OCEAN) 2 Mott EACH NOSTRIL PRN Zuhair Wick apixaban 2.5 [...] H PRN Shameer Khubber 650 mg at 02/05/18 0210 simvastatin 40 mg tab(s) (ZOCOR) 40 mg ORAL AT BEDTIME Raymond (Pa) Claire 40 mg at 02/04/18 2035 ipratropium-albuterol 3 mL nebulizer solution (DUONEB) 3 mL INHALATION q 4 H PRN Raymond (Pa) Claire 3 mL at 02/05/18 0943 pantoprazole [...] AF, DESENEX) 1 application TOPICAL BID Gloria Montana 1 application at 02/05/18 1217 OBJECTIVE PHYSICAL [...] already anti-coagulated. Disposition: Home vs Home with [facility] Plan of care discussed with: Patient, rN SIGNATURE: Radha Edmonds MD DATE: February 05, 2018 TIME: 4:09 PM CONSULT PROG Observed: 02/05/2018 Status: COMPLETED Source: [place] 1:23 PM CLINIC OTHER CAMPUS REPOSITORY HNO ID: [id number] Author: Jordi Cevallos Service: Nephrology Author Type: [...] 3: baseline creatinine is mid 1 range. [place] urine with no significant proteinuria PLAN: 1. No additional ivfluids 2. Continue to hold diuretics for now 3. Serial renal panel 4. Low k diet Will continue to follow the patient during the hospital stay. SIGNATURE: Jordi Cevallos MD DATE: February 05, 2018 TIME: 1:24 PM CONSULT PROG Observed: 02/05/2018 Status: COMPLETED Source: [place] 1:19 PM CLINIC OTHER CAMPUS REPOSITORY HNO ID: [id number] Author: Mauro Ramírez Service: Cardiovascular Medicine Author [...] DAILY PRN sodium chloride 0.65 % 2 Mott (AYR, OCEAN) 2 Mott EACH NOSTRIL PRN apixaban 2.5 mg tab(s) [...] (congestive heart failure) (HCC) (12/10/2017) Atrial fibrillation ([facility]) (09/23/2010) Pacemaker () CAD (coronary artery disease) () Uncontrolled type 2 diabetes mellitus with stage 3 chronic kidney disease, with long-term current use of insulin ([facility]) (09/23/2004) Essential hypertension () Sleep apnea () [...] fair to good. SIGNATURE: Mauro Ramírez MD [facility] PATIENT NAME: Luz Baca DATE: February 05, 2018 TIME: 1:19 PM Cell phone #: [phone] XR CHEST 2V FRONTAL/LAT Observed: 02/05/2018 Status: F Source: [place] 10:55 AM [facility] OTHER CAMPUS REPOSITORY * * *Final Report* [...] . IMPRESSION: Congestive failure with interstitial edema. Top Lift Cutter: SALINAS Transcribe Date/Time: Feb 05 2018 12:53P Dictated by : Arsen NORIEGA MD This examination was interpreted and the report reviewed and electronically signed by: Arsen NORIEGA MD on Feb 05 2018 12:56PM EST [id number] Collected: 02/05/2018 Status: F Source: [place] 10:44 AM [facility] REPOSITORY TYPE CODE TESTS RESULT OUT OF REFERENCE UNITS RANGE LAB TROPT 0.000-0.029 ng/mL High Troponin T 0.058 Result Comment: Called to and read back by: Kahlil [id number] 02/05/18 1206 BBlum Performed By: #### MARIN #### [facility] [address] [place] [address] MAGNESIUM Collected: 02/05/2018 Status: F Source: [place] 10:44 AM [facility] REPOSITORY TYPE CODE TESTS RESULT OUT OF REFERENCE UNITS RANGE LAB MG 1.7-2.3 mg/dL High Magnesium 2.7 Performed By: #### MG1 #### [facility] [address] [place] [address] PROGRESS Observed: 02/05/2018 Status: COMPLETED Source: [place] 10:29 AM CLINIC OTHER CAMPUS REPOSITORY [facility] ID: [id number] Author: Radha Adams) Kendal Service: Hospital Medicine Author Type: Physician Type: Progress Notes Filed: 02/06/2018 1:10 AM Note Text: HOSPITAL MEDICINE PROGRESS NOTE Name: Luz Baca SERVICE DATE: 02/05/2018 SERVICE TIME: 10:29 AM LOCATION / ROOM: [place] [address]/[id number] Hospital Medicine/Primary Attending: Radha Edmonds MD NIGHT COVERAGE BETWEEN 5.30P-7.30A Page [phone] ASSESSMENT AND PLAN Chest pain in adult [...] Adams) Thuestad sodium chloride 0.65 % 2 Mott (AYR, OCEAN) 2 Mott EACH NOSTRIL PRN Zuhair Wick apixaban 2.5 [...] mg tab(s) (IMDUR) 60 mg ORAL DAILY Raymnod (Gorge) Claire 60 mg at 02/04/18 0836 [...] DESENEX) 1 application TOPICAL BID Gloria A Madhukwuani 1 application at 02/04/182040 OBJECTIVE PHYSICAL EXAM: [...] already anti-coagulated. Disposition: Home and Home with [facility] Plan of care discussed with: Patient SIGNATURE: Radha Edmonds MD DATE: February 05, 2018 TIME: 10:29 AM CONSULT PROG Observed: 02/05/2018 Status: COMPLETED Source: [place] 9:12 AM CLINIC OTHER CAMPUS REPOSITORY HNO ID: [id number] Author: Shruti Nair Service: Endocrinology Author Type: [...] place - Cardiomegaly - Carotid artery disease ([facility]) left - Chronic kidney disease (CKD) stage G3b/A2, moderately decreased glomerular filtration rate (GFR) between 30-44 mL/min/1.73 square meter and albuminuria creatinine ratio between 30-299 mg/g Dr. Martin - COPD (chronic obstructive pulmonary disease) ([facility]) Dr. Cruz - Depression - Diabetes ([facility]) - Diabetic neuropathy ([facility]) - Edema - GERD (gastroesophageal reflux disease) - Gout with hyperuricemia - HH (hiatus hernia) - HOCM (hypertrophic obstructive cardiomyopathy) ([facility]) S/P Septal Myectomy in 2003. Now with LVEF 50% and mod/severe pulm HTN. - HTN (hypertension) - Hyperlipidemia - Morbid obesity with BMI of 40.0-44.9, adult ([facility]) - Sleep apnea 2011 not on CPAP, unable to tolerate mask 02/2017 - SVT (supraventricular tachycardia) ([facility]) NSVT and questionable VT in 2003 post [...] mg cap(s) (COLACE) 100 mg ORAL BID Radhaebonie Adams) Thuestad 100 mg at 02/04/18 0843 polyethylene glycol 3350 17 g packet (MIRALAX, GLYCOLAX) 17 g ORAL DAILY Radha Ebonie Adams) Thuestad 17 g at 02/02/18 1046 bisacodyl 10 mg suppository (DULCOLAX) 10 mg RECTAL DAILY PRN Radhaebonie Adams) Thuestad sodium chloride 0.65 % 2 Mott (AYR, OCEAN) 2 Mott EACH NOSTRIL PRN Zuhair Wick apixaban 2.5 [...] PRN Raymond Nayak) Claire 3 mL at 02/05/[address] 40 mg tab(s) (PROTONIX) 40 mg ORAL BID Raymond Rangel (Pa) 40 mg at 02/04/182034 bacitracin 1 application [...] AF, DESENEX) 1 application TOPICAL BID Gloria Montana 1 application at 02/04/182040 CURRENT ALLERGIES: Allergies [...] 74 - 99 mg/dL Final Comment: Meter ID:[id number] SIGNATURE: Shruti Nair MD DATE: February 05, 2018 PLAN OF CARE Observed: 02/05/2018 Status: COMPLETED Source: [place] 8:28 AM CLINIC OTHER CAMPUS REPOSITORY HNO ID: [id number] Author: Akua Muller (Engineering Technician) Service: Pharmacy Author Type: Pharmacist Type: Plan of Care Filed: 02/05/2018 8:29 AM Note Text: MEDICATION RECONCILIATION Patient Name:Josephine Baca : 1940 Reconciliation: Yes All PSYCHOLOGICAL OPERATIONS medications addressed by LIP Additional comments: N/A [...] Pentazocine - Pioglitazone Unknown - Propoxyphene Current PSYCHOLOGICAL OPERATIONS Medications: Prior to Admission medications as of [...] Unknown at Unknown time Yes AKUA MULLER, PLANT PATHOLOGIST February 05, 2018 8:28 AM CBC Collected: 02/05/2018 Status: F Source: [place] 5:57 AM [facility] OTHER CAMPUS REPOSITORY TYPE CODE TESTS RESULT [...] 9.8 Performed By: #### CBC, CMP #### [facility] [address] [facility] [phone] COMP METABOLIC PANEL Collected: 02/05/2018 Status: F Source: [place] 5:57 AM [facility] OTHER CAMPUS REPOSITORY TYPE CODE TESTS RESULT OUT OF REFERENCE UNITS RANGE LAB TP 6.3-8.0 g/dL Protein, Total 6.3 LAB ALB 3.9-4.9 g/dL Low Albumin 3.3 LAB CA 8.5-10.2 mg/dL Calcium, Total 8.5 LAB TBIL 0.2-1.3 mg/dL Bilirubin, Total 0.3 LAB ALKP 32-117 U/L Alkaline Phosphatase 98 LAB AST 13-35 U/L AST 17 LAB GLU 74-99 mg/dL Glucose High 226 Result Comment: The [place] Diabetes Association (ADA) provides guidance for cutoff [...] Standards of Medical Care in Diabetes 2016, [place] [employer]. Diabetes Care. 2016.39(Suppl 1). LAB [...] Performed By: #### CBC, CMP #### [facility] [address] [facility] [phone] NURSING PROG Observed: 02/04/2018 Status: COMPLETED Source: [place] 8:23 PM CLINIC OTHER CAMPUS REPOSITORY O ID: [id number] Author: Janet OsheaRn) ALLYSON Pineda Service: (none) Author Type: Registered Nurse Type: Nursing Progress Note Filed: 02/04/2018 8:26 PM Note Text: Nursing Progress Note Patient Name: Luz Baca Patient Location: [place] [id number] Daily Note: 1998 Patient called with c/o [...] RN PROGRESS Observed: 02/04/2018 Status: COMPLETED Source: [place] 3:00 PM CLINIC OTHER CAMPUS REPOSITORY HNO ID: [id number] Author: Radha Adams) Kendal Service: Hospital Medicine Author Type: Physician Type: Progress Notes Filed: 02/04/2018 3:03 PM Note Text: HOSPITAL MEDICINE PROGRESS NOTE Name: Luz Baca SERVICE DATE: 02/04/2018 SERVICE TIME: 3:00 PM LOCATION / ROOM: [place] [address]/[place] [address] Hospital Medicine/Primary Attending: Radha Edmonds MD NIGHT COVERAGE BETWEEN 5.30P-7.30A Page [phone] ASSESSMENT AND PLAN Chest pain in adult [...] Adams) Thuestad sodium chloride 0.65 % 2 Mott (AYR, OCEAN) 2 Mott EACH NOSTRIL PRN Zuhair Wick apixaban 2.5 [...] AF, DESENEX) 1 application TOPICAL BID Gloria Montana 1 application at 02/04/18 0844 OBJECTIVE PHYSICAL [...] already anti-coagulated. Disposition: Home and Home with [facility] Plan of care discussed with: Patient SIGNATURE: Radha Edmonds MD DATE: February 04, 2018 TIME: 3:00 PM CONSULT PROG Observed: 02/04/2018 Status: COMPLETED Source: [place] 11:03 AM CLINIC OTHER CAMPUS REPOSITORY HNO ID: [id number] Author: Malena Bray Service: Nephrology Author Type: [...] NURSING PROG Observed: 02/04/2018 Status: COMPLETED Source: [place] 10:14 AM [facility] OTHER [place] REPOSITORY HNO ID: [id number] Author: Charlotte (Rn) ALLYSON Leary Service: (none) Author Type: Registered Nurse Type: Nursing Progress Note Filed: 02/04/2018 6:46 PM Note Text: Nursing Progress Note Patient Name: Luz Baca Patient Location: [place] [id number] Daily Note:0730: Attending paged to address potassium [...] entirely. This note was completed by: CHARLOTTE LEARY RN CBC Collected: 02/04/2018 Status: F Source: [place] 5:39 AM CLINIC OTHER CAMPUS REPOSITORY TYPE [...] 9.4 Performed By: #### CBC, CMP #### [facility] [address] [facility] [phone] COMP METABOLIC PANEL Collected: 02/04/2018 Status: F Source: [place] 5:39 AM CLINIC OTHER CAMPUS REPOSITORY TYPE [...] mg/dL Glucose High 156 Result Comment: The [place] Diabetes Association (ADA) provides guidance for cutoff [...] Standards of Medical Care in Diabetes 2016, [place] [employer]. Diabetes Care. 2016.39(Suppl 1). LAB [...] GFR. Performed By: #### CBC, CMP #### [facility] [address] [place] [phone] PROGRESS Observed: 02/03/2018 Status: COMPLETED Source: [place] 2:49 PM CLINIC OTHER CAMPUS REPOSITORY O ID: [id number] Author: Radha Adams) Kendal Service: Hospital Medicine Author Type: Physician Type: Progress Notes Filed: 02/03/2018 2:57 PM Note Text: HOSPITAL MEDICINE PROGRESS NOTE Name: Luz Baca SERVICE DATE: 02/03/2018 SERVICE TIME: 2:49 PM LOCATION / ROOM: [place] [address]/[id number] Hospital Medicine/Primary Attending: Radha Edmonds MD NIGHT COVERAGE BETWEEN 5.30P-7.30A Page [phone] ASSESSMENT AND PLAN Chest pain in adult [...] packet (MIRALAX, GLYCOLAX) 17 g ORAL DAILY [place] Ebonie Adams) Thuestad 17 g at 02/02/18 1046 bisacodyl 10 mg suppository (DULCOLAX) 10 mg RECTAL DAILY PRN Radha Adams) Linkuestad sodium chloride 0.65 % 2 Mott (AYR, OCEAN) 2 Mott EACH NOSTRIL PRN Zuhair Wick apixaban 2.5 mg tab(s) (ELIQUIS) 2.5 mg ORAL BID Radha Loomis Md Thuestad 2.5 mg at 02/03/18 0849 gabapentin [...] DESENEX) 1 application TOPICAL BID Gloria A Wandyi 1 application at 02/03/18 0851 OBJECTIVE PHYSICAL [...] Patient is already anti-coagulated. Disposition: Home with [facility] Plan of care discussed with: Patient SIGNATURE: Radha Edmonds MD DATE: February 03, 2018 TIME: 2:49 PM CONSULT PROG Observed: 02/03/2018 Status: COMPLETED Source: [place] 10:32 AM CLINIC OTHER CAMPUS REPOSITORY O ID: [id number] Author: Malena Bray Service: Nephrology Author Type: [...] OF CARE Observed: 02/03/2018 Status: COMPLETED Source: [place] 9:41 AM CLINIC OTHER CAMPUS REPOSITORY HNO ID: [id number] Author: Vanessa Loomis (Rn) ALLYSON Gonzalez Service: Case Management Author Type: Registered Nurse Type: Plan of Care Filed: 02/03/2018 9:43 AM Note Text: MULTIDISCIPLINARY ROUNDS SERVICE DATE: 02/03/2018 ADMISSION DATE: 01/27/2018 SERVICE TIME: 9:41 AM ANTICIPATED D/C DATE: 1-2 days Problem List: ACTIVE PROBLEM LIST Cad (Coronary Artery Disease) Essential Hypertension Hyperlipidemia Copd (Chronic Obstructive Pulmonary Disease) ([facility]) Sleep Apnea Gerd (Gastroesophageal Reflux Disease) Arthritis Depression Atrial Fibrillation ([facility]) 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 This note routed [facility] Nursing: Cardiac Intervention(s) Plan: Monitor and Assess Vital Signs and IANDO Report Significant Changes to LIP;Monitor Labs;Monitor Rhythm Strips and EKG and Report Changes to LIP;Oxygen as Ordered;Review Current Medication and Medication History and Administer Medications as Ordered;Review Medications, Self I ANDO, Daily Weights, Diet and Fluid Restriction and Activity Level;Notify LIP for Changes to Baseline Status Cardiac Goals/Outcomes: Displays No Signs of Ectopy;VICE PRESIDENT PROCESS, Cardiac Enzymes, K, Mg, Hgb/Hct Levels Within [...] in IFMS Score);Pain Management;Assist with Ambulation and Transfers;[place] Safety Measures;Pressure Ulcer Prevention;Review Current Medication and Medication History and Administer Medications as Ordered Mobility Patient/Family Goals: Patient Attained Highest Level of Functional of Mobility Mobility Goal Target Achievement Date: 02/04/18 DOCUMENTED BY: Vanessa Gonzalez RN PATIENT NAME: Luz Baca DATE: February 03, 2018 TIME: 9:41 AM CSN: [id number] PROTEIN/CREATININE RATIO Collected: Status: F Source: [place] 02/03/2018 9:00 AM CLINIC OTHER CAMPUS REPOSITORY TYPE CODE TESTS RESULT OUT OF REFERENCE UNITS RANGE LAB UTPR 0-20 mg/dL High Protein Urine 21 Random LAB UCRR 20-300 mg/dL Creatinine,Ur 142.1 ine,Ran LAB PCRAT <0.2 Protein/Creat 0.1 inine Ratio Performed By: #### PRATIO #### [facility] [address] [facility] [phone] NURSING PROG Observed: 02/03/2018 Status: COMPLETED Source: [place] 8:28 AM CLINIC OTHER CAMPUS REPOSITORY HNO ID: [id number] Author: Charlotte OsheaRn) ALLYSON Leary Service: (none) Author Type: Registered Nurse Type: Nursing Progress Note Filed: 02/03/2018 6:30 PM Note Text: Nursing Progress Note Patient Name: Luz Baca Patient Location: [id number] Daily Note:0828: Endocrinology paged at this time [...] RN CBC Collected: 02/03/2018 Status: F Source: [place] 4:30 AM CLINIC OTHER CAMPUS REPOSITORY TYPE [...] Performed By: #### CBC, CMP, URIC #### [facility] [address] [facility] [phone] COMP METABOLIC PANEL Collected: 02/03/2018 Status: F Source: [place] 4:30 AM CLINIC OTHER CAMPUS REPOSITORY TYPE [...] 74-99 mg/dL Glucose 75 Result Comment: The [place] Diabetes Association (ADA) provides guidance for cutoff [...] Standards of Medical Care in Diabetes 2016, [place] [employer]. Diabetes Care. 2016.39(Suppl 1). LAB [...] Performed By: #### CBC, CMP, URIC #### [facility] [address] [facility] [phone] URIC ACID Collected: 02/03/2018 Status: F Source: [place] 4:30 AM CLINIC OTHER [place] REPOSITORY TYPE CODE TESTS RESULT OUT OF RANGE REFERENCE UNITS LAB URIC 2.5-6.6 mg/dL High Uric Acid 15.7 Performed By: #### CBC, CMP, URIC #### [facility] [address] [facility] [phone] PROGRESS Observed: 02/02/2018 Status: COMPLETED Source: [place] 7:39 PM CLINIC OTHER [place] REPOSITORY HNO ID: [id number] Author: Radha Adams) Kendal Service: Hospital Medicine Author Type: Physician Type: Progress Notes Filed: 02/02/2018 7:42 PM Note Text: HOSPITAL MEDICINE PROGRESS NOTE Name: Luz Baca SERVICE DATE: 02/02/2018 SERVICE TIME: 7:39 PM LOCATION / ROOM: [place] [address]/[id number] Hospital Medicine/Primary Attending: Radha Edmonds MD NIGHT COVERAGE BETWEEN 5.30P-7.30A Page [phone] ASSESSMENT AND PLAN ? Chest pain in [...] 02/02/18 1052 sodium chloride 0.65 % 2 Mott (AYR, OCEAN) 2 Mott EACH NOSTRIL PRN Zuhair Wick apixaban 2.5 [...] ORAL q 6 H PRN Zuhair Odonnell Chacko 4 mg at 02/02/18 0807 acetaminophen 650 mg tab(s) (TYLENOL) 650 mg ORAL q 6 H PRN Leonard Basiliober 650 mg at 01/30/18 2137 insulin lispro [...] AF, DESENEX) 1 application TOPICAL BID Gloria Montana 1 application at 02/02/18 1034 OBJECTIVE PHYSICAL [...] Patient is already anti-coagulated. Disposition: Home with [facility] Plan of care discussed with: Patient SIGNATURE: Radha Edmonds MD DATE: February 02, 2018 TIME: 7:39 PM CASE MANAGEM Observed: 02/02/2018 Status: COMPLETED Source: [place] 3:06 PM CLINIC OTHER CAMPUS REPOSITORY HNO ID: [id number] Author: Vanessa Loomis (Rn) ALLYSON Gonzalez Service: [...] CONSULT PROG Observed: 02/02/2018 Status: COMPLETED Source: [place] 10:57 AM CLINIC OTHER CAMPUS REPOSITORY O ID: [id number] Author: Shruti Nair Service: Endocrinology Author Type: [...] Martin - COPD (chronic obstructive pulmonary disease) ([facility]) Dr. Cruz - Depression - Diabetes ([facility]) - Diabetic neuropathy ([facility]) - Edema - GERD (gastroesophageal reflux disease) - Gout with hyperuricemia - HH (hiatus hernia) - HOCM (hypertrophic obstructive cardiomyopathy) ([facility]) S/P Septal Myectomy in 2003. Now with LVEF 50% and mod/severe pulm HTN. - HTN (hypertension) - Hyperlipidemia - Morbid obesity with BMI of 40.0-44.9, adult ([facility]) - Sleep apnea 2011 not on CPAP, unable to tolerate mask 02/2017 - SVT (supraventricular tachycardia) ([facility]) NSVT and questionable VT in 2003 post [...] mg ORAL q 6 H PRN Zuhair Hdzw Del[place] 4 mg at 02/02/18 0807 acetaminophen 650 mg tab(s) (TYLENOL) 650 mg ORAL q 6 H PRN Leonard Santiagoburtonber 650 mg at 01/30/18 2137 insulin lispro [...] 74 - 99 mg/dL Final Comment: Meter ID:[id number] SIGNATURE: Shruti Nair MD DATE: February 02, 2018 CONSULT PROG Observed: 02/02/2018 Status: COMPLETED Source: [place] 10:38 AM [facility] OTHER CAMPUS REPOSITORY HNO ID: [id number] Author: Malena Bray Service: Nephrology Author Type: [...] ? CBC Collected: 02/02/2018 Status: F Source: [place] 5:29 AM CLINIC OTHER CAMPUS REPOSITORY TYPE [...] 9.5 Performed By: #### CBC, CMP #### [facility] [address] [place] [address] COMP METABOLIC PANEL Collected: 02/02/2018 Status: F Source: [place] 5:29 AM CLINIC OTHER CAMPUS REPOSITORY TYPE [...] mg/dL Glucose High 123 Result Comment: The [place] Diabetes Association (ADA) provides guidance for cutoff [...] Standards of Medical Care in Diabetes 2016, [place] [employer]. Diabetes Care. 2016.39(Suppl 1). LAB [...] GFR. Performed By: #### CBC, CMP #### [facility] [address] [place] [address] URIC ACID Collected: 02/02/2018 Status: F Source: [place] 5:29 AM [facility] OTHER CAMPUS REPOSITORY TYPE CODE TESTS RESULT OUT OF RANGE REFERENCE UNITS LAB URIC 2.5-6.6 mg/dL High Uric Acid 15.4 Performed By: #### URIC #### [facility] [address] [place] [address] #### PTHI, VITD #### [place] [address] PTH, INTACT Collected: 02/02/2018 Status: F Source: [place] 5:29 AM [facility] OTHER [place] REPOSITORY TYPE CODE TESTS RESULT OUT OF REFERENCE UNITS RANGE LAB PTH 15-65 pg/mL High PTH, Intact 198 Performed By: #### URIC #### [facility] [address] [place] [address] #### PTHI, VITD #### [facility] [address] [place] [address] VITAMIN D 25 HYDROXY Collected: 02/02/2018 Status: F Source: [place] 5:29 AM [facility] OTHER CAMPUS REPOSITORY TYPE CODE TESTS RESULT OUT OF REFERENCE UNITS RANGE LAB VITD 31.0-80.0 ng/mL Low Vitamin D 25 14.9 Hydroxy Result Comment: Classification of 25 [place] Vitamin D status: Insufficiency/Moderate Deficiency: < or = 30 ng/mL Sufficiency/Optimal Levels: 31 to 80 ng/mL Toxicity: > 100 ng/mL Test performed by chemiluminescent immunoassay. Performed By: #### URIC #### [facility] [address] [facility] [phone] #### PTHI, VITD #### [facility] [address] [place] [phone] PLAN OF CARE Observed: 02/01/2018 Status: COMPLETED Source: [place] 6:00 PM [facility] REPOSITORY HNO ID: [id number] Author: Som Feliciano Service: Endocrinology Author Type: [...] each meal and at bedtime. Call Endo deputy felony clerk if blood sugar is less than 80 or more than 210. Som Feliciano MD February 01, 2018 US KIDNEY/BLADDER Observed: 02/01/2018 Status: F Source: [place] 4:43 PM [facility] REPOSITORY * * *Final Report* * * [...] demonstrated. IMPRESSION: No pathologic process is seen. Top Lift Cutter: SALINAS Transcribe Date/Time: Feb 01 2018 4:54P Dictated by : GALINDO BECKER MD This examination was interpreted and the report reviewed and electronically signed by: GALINDO BECKER MD on Feb 01 2018 4:57PM EST [id number] SODIUM,URINE,RANDOM Collected: Status: F Source: [place] 02/01/2018 4:41 PM CLINIC OTHER CAMPUS REPOSITORY TYPE CODE TESTS RESULT OUT OF RANGE REFERENCE UNITS LAB UNAR 14-216 mmol/L Low <10 Sodium,Urine ,Random Result Comment: Rechecked Performed By: #### UNAR #### [facility] [address] [facility] [phone] CONSULT Observed: 02/01/2018 Status: COMPLETED Source: [place] 3:47 PM CLINIC OTHER CAMPUS REPOSITORY HNO ID: [id number] Author: Malena Bray Service: Nephrology Author Type: [...] place - Cardiomegaly - Carotid artery disease ([facility]) left - Chronic kidney disease (CKD) stage G3b/A2, moderately decreased glomerular filtration rate (GFR) between 30-44 mL/min/1.73 square meter and albuminuria creatinine ratio between 30-299 mg/g Dr. Martin - COPD (chronic obstructive pulmonary disease) ([facility]) Dr. Cruz - Depression - Diabetes ([facility]) - Diabetic neuropathy ([facility]) - Edema - GERD (gastroesophageal reflux disease) - Gout with hyperuricemia - HH (hiatus hernia) - HOCM (hypertrophic obstructive cardiomyopathy) ([facility]) S/P Septal Myectomy in 2003. Now with LVEF 50% and mod/severe pulm HTN. - HTN (hypertension) - Hyperlipidemia - Morbid obesity with BMI of 40.0-44.9, adult ([facility]) - Sleep apnea 2011 not on CPAP, unable to tolerate mask 02/2017 - SVT (supraventricular tachycardia) ([facility]) NSVT and questionable VT in 2003 post [...] age 89, HTN - Heart Failure Mother PA - Cancer Father age 71, lung cancer [...] No nausea, vomiting, or diarrhea : Negative RETURN TO FACTORY CLERK: Not reviewed MUSCULOSKELETAL: Negative for joint pain [...] 02/01/2018 PROGRESS Observed: 02/01/2018 Status: COMPLETED Source: [place] 2:16 PM CLINIC OTHER CAMPUS REPOSITORY O ID: [id number] Author: Radha Edmonds Service: Hospital Medicine Author Type: Physician Type: Progress Notes Filed: 02/01/2018 2:18 PM Note Text: HOSPITAL MEDICINE PROGRESS NOTE Name: Luz Baca SERVICE DATE: 02/01/2018 SERVICE TIME: 2:16 PM LOCATION / ROOM: [place] [address]/[place] [address] Hospital Medicine/Primary Attending: Radha Edmonds MD NIGHT COVERAGE BETWEEN 5.30P-7.30A Page [phone] ASSESSMENT AND PLAN Principal Problem: ? Chest [...] (ELIQUIS) 2.5 mg ORAL BID Radha Adams) Vitalytakellee insulin lispro 15 Units injection (rapid acting) (HumaLOG) 15 Units SUBCUTANEOUS w MEALS Som Feliciano 15 Units at 02/01/18 1219 ondansetron orally disintegrating 4 mg tab(s) (ZOFRAN ODT) 4 mg ORAL q 6 H PRN Zuhair Wick 4 mg at 01/31/18 1939 insulin glargine 34 Units injection (long acting) (LANTUS) 34 Units SUBCUTANEOUS DAILY (8 AM) Som Orra 34 Units at 02/01/18 0945 insulin glargine 48 Units injection (long acting) (LANTUS) 48 Units SUBCUTANEOUS AT BEDTIME Som Feliciano 48 Units at 01/31/18 214 acetaminophen 650 mg tab(s) (TYLENOL) 650 mg [...] TOPICAL BID Gloria Sabai 1 application at 01/31/18 2144 OBJECTIVE PHYSICAL [...] Patient is already anti-coagulated. Disposition: Home with [facility] Plan of care discussed with: Patient SIGNATURE: Radha Edmonds MD DATE: February 01, 2018 TIME: 2:16 PM NURSING PROG Observed: 02/01/2018 Status: COMPLETED Source: [place] 1:49 PM CLINIC OTHER CAMPUS REPOSITORY HNO ID: [id number] Author: Clifton OsheaRn) ALLYSON Aaron Service: Nursing Author Type: Registered Nurse Type: Nursing Progress Note Filed: 02/01/2018 5:52 PM Note Text: Nursing Progress Note Patient Name: Luz Baca Patient [facility] [facility] [id number]/[id number] Daily Note:0730- rounds done and noted pt. [...] RN NUTRITION Observed: 02/01/2018 Status: COMPLETED Source: [place] 10:19 AM CLINIC OTHER CAMPUS REPOSITORY O ID: [id number] Author: Megan (El) Cielo Service: Nutrition Therapy Author Type: Registered [...] AM CBC Collected: 02/01/2018 Status: F Source: [place] 4:32 AM [facility] OTHER [place] REPOSITORY TYPE CODE TESTS RESULT OUT OF [...] 9.5 Performed By: #### CBC, CMP #### [facility] [address] [place] [address] COMP METABOLIC PANEL Collected: 02/01/2018 Status: F Source: [place] 4:32 [facility] OTHER [place] REPOSITORY TYPE CODE TESTS RESULT OUT OF REFERENCE UNITS RANGE LAB TP 6.3-8.0 g/dL Low Protein, Total 6.2 LAB ALB 3.9-4.9 g/dL Low Albumin 3.1 LAB CA 8.5-10.2 mg/dL Calcium, Total 8.8 LAB TBIL 0.2-1.3 mg/dL Bilirubin, Total 0.5 LAB ALKP 32-117 U/L Alkaline Phosphatase 68 LAB AST 13-35 U/L AST 16 LAB GLU 74-99 mg/dL Glucose High 226 Result Comment: The [place] [employer] (ADA) provides guidance for cutoff [...] Standards of Medical Care in Diabetes 2016, [place] [employer]. Diabetes Care. 2016.39(Suppl 1). LAB [...] GFR. Performed By: #### CBC, CMP #### [facility] [address] [place] [address] PROGRESS Observed: 01/31/2018 Status: COMPLETED Source: [place] 8:11 PM CLINIC OTHER CAMPUS REPOSITORY O ID: [id number] Author: Radha Adams) Kendal Service: Hospital Medicine Author Type: Physician Type: Progress Notes Filed: 01/31/2018 8:18 PM Note Text: HOSPITAL MEDICINE PROGRESS NOTE Name: Luz Baca SERVICE DATE: 01/31/2018 SERVICE TIME: 8:11 PM LOCATION / ROOM: [facility]-0262/[id number] Hospital Medicine/Primary Attending: Radha Edmonds MD NIGHT COVERAGE BETWEEN 5.30P-7.30A Page [phone] ASSESSMENT AND PLAN Principal Problem: ?? Chest [...] 60 mg ORAL BID 9a/5p Radha Adams) Kendal [START ON 02/01/2018] insulin lispro 15 Units [...] PRN Leonard Santiagoubber 650 mg at 01/30/18 213 insulin lispro injection (rapid acting) (HumaLOG) SUBCUTANEOUS w MEALS AND HS Francis Ramos 9 Units at 01/31/18 180 insulin glargine 30 Units injection (long acting) (LANTUS) 30 Units SUBCUTANEOUS DAILY (8 AM) Shruti Hasan 30 Units at 01/31/18 0931 spironolactone 25 mg tab(s) (ALDACTONE) 25 mg ORAL BID Jose C Yeung 25 mg at 01/30/18 180 gabapentin 600 mg cap(s) (NEURONTIN) 600 mg ORAL BID Raymond Nayak) Claire 600 mg at 01/31/18935 simvastatin 40 mg tab(s) (ZOCOR) 40 mg ORAL AT BEDTIME Raymond Rangel (Pa) 40 mg at 01/30/182054 ipratropium-albuterol 3 mL nebulizer solution (DUONEB) 3 mL INHALATION q 4 H PRN Raymond Rangel (Pa) 3 mL at 01/31/18 0809 apixaban 5 mg tab(s) (ELIQUIS) 5 mg ORAL BID Raymond Nayak) Claire 5 mg at 01/31/[address] 40 mg tab(s) (PROTONIX) 40 mg ORAL BID Raymond Nayak) Claire 40 mg at 01/31/1836 bacitracin 1 application topical ointment 1 application TOPICAL BID Raymond Nayak) Claire 1 application at 01/31/18 0900 isosorbide [...] BID Gloria Ebonie Venturasedrickflaco 1 application at 01/31/18 0900 OBJECTIVE PHYSICAL [...] Patient is already anti-coagulated. Disposition: Home with [facility] Plan of care discussed with: Patient SIGNATURE: Radha Edmonds MD DATE: January 31, 2018 TIME: 8:11 PM CONSULT Observed: 01/31/2018 Status: COMPLETED Source: [place] 6:52 PM CLINIC OTHER CAMPUS REPOSITORY HNO ID: [id number] Author: Som Feliciano Service: Endocrinology Author Type: [...] Diagnosis Date - Arthritis - Atrial fibrillation ([facility]) - CAD (coronary artery disease) stents x9, defibrillator, CABG. Seeing Dr. Cardona - Cardiac defibrillator in place - Cardiomegaly - Carotid artery disease ([facility]) left - CKD (chronic kidney disease), stage IV ([facility]) Dr. Martin - COPD (chronic obstructive pulmonary disease) ([facility]) Dr. Cruz - Depression - Diabetes ([facility]) - Diabetic neuropathy ([facility]) - GERD (gastroesophageal reflux disease) - Gout - HH (hiatus hernia) - HH (hiatus hernia) - HOCM (hypertrophic obstructive cardiomyopathy) ([facility]) - HOCM (hypertrophic obstructive cardiomyopathy) ([facility]) S/P Septal Myectomy in 2003. Echo 09/23/10 shows no visable GABRIEL. LVOT gradient is 8mmHg. - HTN (hypertension) - Hyperlipidemia - Morbid obesity with BMI of 40.0-44.9, adult ([facility]) - Pacemaker - Pneumonia h/o pneumonia/bronchitis - Renal insufficiency 2003 post op - Sleep apnea 2011 not on CPAP, unable to tolerate mask 02/2017 - SVT (supraventricular tachycardia) ([facility]) NSVT and questionable VT in 2003 post [...] age 89, HTN - Heart Failure Mother PA - Cancer Father age 71, lung cancer [...] 31, 2018 TIME: 6:52 PM PAGER/CONTACT #: [phone] CASE MANAGEM Observed: 01/31/2018 Status: COMPLETED Source: [place] 12:20 PM CLINIC OTHER CAMPUS REPOSITORY O ID: [id number] Author: Vanessa Loomis (Rn) ALLYSON Gonzalez Service: [...] 31, 2018 TIME: 12:20 PM PAGER/CONTACT #: [phone] NURSING PROG Observed: 01/31/2018 Status: COMPLETED Source: [place] 8:00 AM [facility] OTHER [place] REPOSITORY HNO ID: [id number] Author: Reanna (Rn) ALLYSON Davalos Service: Nursing Author Type: Registered Nurse Type: Nursing Progress Note Filed: 01/31/2018 7:26 PM Note Text: Nursing Progress Note Patient Name: Luz Baca Patient Location: [facility]0262/[id number] Daily Note: Pt AANDO x 3, cooperative. [...] RN CBC Collected: 01/31/2018 Status: F Source: [place] 4:36 AM [facility] OTHER CAMPUS REPOSITORY TYPE CODE TESTS RESULT [...] 9.5 Performed By: #### CBC, CMP #### [facility] [address] [place] [address] COMP METABOLIC PANEL Collected: 01/31/2018 Status: F Source: [place] 4:36 AM CLINIC OTHER CAMPUS REPOSITORY TYPE [...] mg/dL Glucose High 251 Result Comment: The [place] [employer] (ADA) provides guidance for cutoff [...] Standards of Medical Care in Diabetes 2016, [place] [employer]. Diabetes Care. 2016.39(Suppl 1). LAB [...] GFR. Performed By: #### CBC, CMP #### [facility] [address] [place] [address] NURSING PROG Observed: 01/30/2018 Status: COMPLETED Source: [place] 8:40 PM CLINIC OTHER CAMPUS REPOSITORY HNO ID: [id number] Author: Sohail (Rn) ALLYSON Hernandez Service: (none) Author Type: Registered Nurse Type: Nursing Progress Note Filed: 01/31/2018 6:26 AM Note Text: Nursing Progress Note Patient Name: Luz Baca Patient Location: [facility]0262/[id number] Daily Note:01/30/[address] Feliciano regarding pt blood sugar, orders to give scheduled Lantus and Humalog. [address] Feliciano regarding pt blood sugars, no new orders. This note was completed by: Sohail Hernandez RN CONSULT PROG Observed: 01/30/2018 Status: COMPLETED Source: [place] 12:20 PM CLINIC OTHER CAMPUS REPOSITORY HNO ID: [id number] Author: Clay Garcia Service: Clinical Cardiology Author Type: Physician Type: Consult Progress Note Filed: 01/30/2018 12:24 PM Note Text: 01/30/2018 CONSULT PROGRESS NOTE SERVICE TIME: 09 ASSESSMENT AND PLAN 1. ASHD - CABGx3 [...] will follow with Dr. Michael Cardona in [place] for Cardiology SIGNATURE: Clay Garcia, DO, FACC, FCCP, FACOI. PATIENT NAME: Luz Baca DATE: January 30, 2018 TIME: 1010 PAGER: [phone] CONSULT PROGRESS NOTE: CARDIOLOGY SERVICE PCP: Jameson [...] Diagnosis Date - Arthritis - Atrial fibrillation ([facility]) - CAD (coronary artery disease) stents x9, defibrillator, CABG. Seeing Dr. Cardona - Cardiac defibrillator in place - Cardiomegaly - Carotid artery disease ([facility]) left - CKD (chronic kidney disease), stage IV ([facility]) Dr. Martin - COPD (chronic obstructive pulmonary disease) ([facility]) Dr. Cruz - Depression - Diabetes ([facility]) - Diabetic neuropathy ([facility]) - GERD (gastroesophageal reflux disease) - Gout - HH (hiatus hernia) - HH (hiatus hernia) - HOCM (hypertrophic obstructive cardiomyopathy) ([facility]) - HOCM (hypertrophic obstructive cardiomyopathy) ([facility]) S/P Septal Myectomy in 2003. Echo 09/23/10 shows no visable GABRIEL. LVOT gradient is 8mmHg. - HTN (hypertension) - Hyperlipidemia - Morbid obesity with BMI of 40.0-44.9, adult ([facility]) - Pacemaker - Pneumonia h/o pneumonia/bronchitis - Renal insufficiency 2003 post op - Sleep apnea 2012 not on CPAP, unable to tolerate mask 02/2017 - SVT (supraventricular tachycardia) ([facility]) NSVT and questionable VT in 2003 post [...] age 89, HTN - Heart Failure Mother PA - Cancer Father age 71, lung cancer [...] #: PROGRESS Observed: 01/30/2018 Status: COMPLETED Source: [place] 12:10 PM CLINIC OTHER CAMPUS REPOSITORY HNO ID: [id number] Author: Peyman Guerrero Service: Hospital Medicine Author Type: Physician Type: Progress Notes Filed: 01/30/2018 12:19 PM Note Text: DEPARTMENT OF HOSPITAL MEDICINE PROGRESS NOTE SERVICE DATE: 01/30/2018 SERVICE TIME: 12:10 PM Hospital Medicine/Primary Attending: Peyman Guerrero MD NIGHT AND WEEKEND COVERAGE: Nights: Please contact pager [phone]. Subjective Subjective Patient is still c/o intermittent [...] 30, 2018 TIME: 12:19 PM PAGER/CONTACT #: [phone] NURSING PROG Observed: 01/30/2018 Status: COMPLETED Source: [place] 7:36 AM CLINIC OTHER CAMPUS REPOSITORY HNO ID: [id number] Author: Charlotte (Rn) ALLYSON Leary Service: (none) Author Type: Registered Nurse Type: Nursing Progress Note Filed: 01/30/2018 6:33 PM Note Text: Nursing Progress Note Patient Name: Luz Baca Patient Location: [place] [id number] Daily Note:0736: Pt reporting pain 5/10 to the chest. It is not mid-sternal pain, and she describes it as a dull pain to the areas where the security shift supervisor hospitalist pushed on overnight. She was prescribed a 1x dose of oxycodone 10mg PO at approximately 2310 last PM for the same type of pain, and the security shift supervisor RN has explained that the patient [...] RN CBC Collected: 01/30/2018 Status: F Source: [place] 4:31 AM CLINIC OTHER CAMPUS REPOSITORY TYPE [...] 9.7 Performed By: #### CBC, CMP #### [facility] [address] [facility] [phone] COMP METABOLIC PANEL Collected: 01/30/2018 Status: F Source: [place] 4:31 AM CLINIC OTHER CAMPUS REPOSITORY TYPE [...] mg/dL Glucose High 151 Result Comment: The [place] [employer] (ADA) provides guidance for cutoff [...] Standards of Medical Care in Diabetes 2016, [place] [employer]. Diabetes Care. 2016.39(Suppl 1). LAB [...] GFR. Performed By: #### CBC, CMP #### [facility] [address] [facility] [phone] NURSING PROG Observed: 01/29/2018 Status: COMPLETED Source: [place] 8:25 PM CLINIC OTHER CAMPUS REPOSITORY HNO ID: [id number] Author: Sohail (Rn) ALLYSON Hernandez Service: (none) Author Type: Registered Nurse Type: Nursing Progress Note Filed: 01/30/2018 3:38 AM Note Text: Nursing Progress Note Patient Name: Luz Baca Patient Location: [place] [id number] Daily Note:01/29/18[address] Feliciano regarding blood sugar of 283, orders received to give scheduled Lantus and Humalog, recheck blood sugar around 2300. [address] Ortiz regarding pt having sharp, midsternal chest pain. Orders received, see eMAR, [address] Ortiz regarding EKG results 2254 Pt reporting little relief of pain with Tyleol. Paged hospitalist [phone] Dr. Ortiz at bedside, verbals orders received This note was completed by: Sohail Hernandez RN PLAN OF CARE Observed: 01/29/2018 Status: COMPLETED Source: [place] 4:59 PM [facility] REPOSITORY HNO ID: [id number] Author: Som Feliciano Service: Endocrinology Author Type: [...] 44 units. Monitor blood sugar. Call endo deputy felony clerk if blood sugar <80 or >210. Som Feliciano MD January 29, 2018 PROGRESS Observed: 01/29/2018 Status: COMPLETED Source: [place] 1:06 PM [facility] REPOSITORY HNO ID: [id number] Author: Peyman Guerrero Service: Hospital Medicine Author Type: Physician Type: Progress Notes Filed: 01/29/2018 1:11 PM Note Text: DEPARTMENT OF HOSPITAL MEDICINE PROGRESS NOTE SERVICE DATE: 01/29/2018 SERVICE TIME: 1:07 PM Hospital Medicine/Primary Attending: Peyman Guerrero MD NIGHT AND WEEKEND COVERAGE: Nights: Please contact pager [phone]. Subjective Subjective Chest pain has improved, less [...] 29, 2018 TIME: 1:10 PM PAGER/CONTACT #: [phone] CONSULT PROG Observed: 01/29/2018 Status: COMPLETED Source: [place] 12:48 PM CLINIC OTHER CAMPUS REPOSITORY HNO ID: [id number] Author: Clay Garcia Service: Clinical Cardiology Author [...] DATE: January 29, 2018 TIME: 1010 PAGER: [phone] CONSULT PROGRESS NOTE: CARDIOLOGY SERVICE PCP: Jameson [...] - CKD (chronic kidney disease), stage IV ([facility]) Dr. Martin - COPD (chronic obstructive pulmonary disease) ([facility]) Dr. Cruz - Depression - Diabetes ([facility]) - Diabetic neuropathy ([facility]) - GERD (gastroesophageal reflux disease) - Gout - HH (hiatus hernia) - HH (hiatus hernia) - HOCM (hypertrophic obstructive cardiomyopathy) ([facility]) - HOCM (hypertrophic obstructive cardiomyopathy) ([facility]) S/P Septal Myectomy in 2003. Echo 09/23/10 shows no visable GABRIEL. LVOT gradient is 8mmHg. - HTN (hypertension) - Hyperlipidemia - Morbid obesity with BMI of 40.0-44.9, adult ([facility]) - Pacemaker - Pneumonia h/o pneumonia/bronchitis - Renal insufficiency 2003 post op - Sleep apnea 2011 not on CPAP, unable to tolerate mask 02/2017 - SVT (supraventricular tachycardia) ([facility]) NSVT and questionable VT in 2003 post [...] age 89, HTN - Heart Failure Mother PA - Cancer Father age 71, lung cancer [...] NURSING PROG Observed: 01/29/2018 Status: COMPLETED Source: [place] 7:44 AM CLINIC OTHER CAMPUS REPOSITORY HNO ID: [id number] Author: Charlotte (Rn) ALLYSON Leary Service: (none) Author Type: Registered Nurse Type: Nursing Progress Note Filed: 01/29/2018 6:16 PM Note Text: Nursing Progress Note Patient Name: Luz Baca Patient [facility] [facility] [place]/[id number] Daily Note:0744: Attending paged to address potassium [...] RN CBC Collected: 01/29/2018 Status: F Source: [place] 4:15 AM CLINIC OTHER CAMPUS REPOSITORY TYPE [...] 9.6 Performed By: #### CBC, CMP #### [facility] [address] [facility] [phone] COMP METABOLIC PANEL Collected: 01/29/2018 Status: F Source: [place] 4:15 AM [facility] OTHER CAMPUS REPOSITORY TYPE CODE TESTS RESULT [...] mg/dL High Glucose 210 Result Comment: The [place] Diabetes Association (ADA) provides guidance for cutoff [...] Standards of Medical Care in Diabetes 2016, [place] [employer]. Diabetes Care. 2016.39(Suppl 1). LAB [...] Performed By: #### CBC, CMP #### [facility] [address] [place] [address] CASE MANAGEM Observed: 01/28/2018 Status: COMPLETED Source: [place] 4:08 PM CLINIC OTHER CAMPUS REPOSITORY HNO ID: [id number] Author: Glendy Briseno) ALLYSON Sales Service: Care [...] 28, 2018 TIME: 4:08 PM PAGER/CONTACT #: [phone] CONSULT Observed: 01/28/2018 Status: COMPLETED Source: [place] 2:23 PM CLINIC OTHER CAMPUS REPOSITORY HNO ID: [id number] Author: Jose C Yeung Service: Clinical Cardiology [...] January 28, 2018 TIME: 2:23 PM PAGER: [phone] CONSULT: CARDIOLOGY SERVICE CONSULTING PHYSICIAN: Jose C [...] Diagnosis Date - Arthritis - Atrial fibrillation ([facility]) - CAD (coronary artery disease) stents x9, defibrillator, CABG. Seeing Dr. Cardona - Cardiac defibrillator in place - Cardiomegaly - Carotid artery disease ([facility]) left - CKD (chronic kidney disease), stage IV ([facility]) Dr. Martin - COPD (chronic obstructive pulmonary disease) ([facility]) Dr. Cruz - Depression - Diabetes ([facility]) - Diabetic neuropathy ([facility]) - GERD (gastroesophageal reflux disease) - Gout - HH (hiatus hernia) - HH (hiatus hernia) - HOCM (hypertrophic obstructive cardiomyopathy) ([facility]) - HOCM (hypertrophic obstructive cardiomyopathy) ([facility]) S/P Septal Myectomy in 2003. Echo 09/23/10 shows no visable GABRIEL. LVOT gradient is 8mmHg. - HTN (hypertension) - Hyperlipidemia - Morbid obesity with BMI of 40.0-44.9, adult ([facility]) - Pacemaker - Pneumonia h/o pneumonia/bronchitis - Renal insufficiency 2003 post op - Sleep apnea 2011 not on CPAP, unable to tolerate mask 02/2017 - SVT (supraventricular tachycardia) ([facility]) NSVT and questionable VT in 2003 post [...] age 89, HTN - Heart Failure Mother PA - Cancer Father age 71, lung cancer [...] - - 65 - - - - 01/27/182220 - - - 63 20 - - [...] PT ED Observed: 01/28/2018 Status: COMPLETED Source: [place] 2:06 PM CLINIC OTHER CAMPUS REPOSITORY HNO ID: [id number] Author: Clemente Rose (Sales Representative [employer]) Service: (none) Author Type: (none) Type: Patient Education Filed: 01/28/2018 2:10 PM Note Text: Attestation signed by Evy Kilgore (Pharmacist) at 01/28/2018 3:17 PM Preceptor Addendum: This case has been reviewed and discussed with the pharmacy operations manager. I agree with the assessment/plan described by the student. Changes and additions to the details in the note are indicated by italics and . Evy Kilgore, Pharmacist Heart Failure Education Note Patient Name:.Luz Condein Service Date: 01/28/2018 Service Time: 2:07 PM [...] RECOMMENDATIONS (IF ANY): None SIGNATURE: Clemente Rose (Sales Representative [employer]) PAGER: [phone] PROGRESS Observed: 01/28/2018 Status: COMPLETED Source: [place] 1:13 PM CLINIC OTHER CAMPUS REPOSITORY O ID: [id number] Author: Peyman Guerrero Service: Hospital Medicine Author Type: Physician Type: Progress Notes Filed: 01/28/2018 1:16 PM Note Text: DEPARTMENT OF HOSPITAL MEDICINE PROGRESS NOTE SERVICE DATE: 01/28/2018 SERVICE TIME: 1:13 PM Hospital Medicine/Primary Attending: Peyman Guerrero MD NIGHT AND WEEKEND COVERAGE: Nights: Please contact pager [phone]. Subjective Subjective Pt still reports chest pain, [...] 28, 2018 TIME: 1:13 PM PAGER/CONTACT #: [phone] PLAN OF CARE Observed: 01/28/2018 Status: COMPLETED Source: [place] 10:59 AM [facility] OTHER CAMPUS REPOSITORY HNO ID: [id number] Author: Shruti Nair Service: Endocrinology Author Type: [...] 01/28/18 CBC Collected: 01/28/2018 Status: F Source: [place] 4:55 AM [facility] OTHER CAMPUS REPOSITORY TYPE CODE TESTS RESULT [...] 9.8 Performed By: #### CBC, CMP #### [facility] [address] [place] [address] COMP METABOLIC PANEL Collected: 01/28/2018 Status: F Source: [place] 4:55 AM [facility] OTHER CAMPUS REPOSITORY TYPE CODE TESTS RESULT [...] mg/dL High Glucose 208 Result Comment: The [place] [employer] (ADA) provides guidance for cutoff [...] Standards of Medical Care in Diabetes 2016, [place] [employer]. Diabetes Care. 2016.39(Suppl 1). LAB [...] GFR. Performed By: #### CBC, CMP #### [facility] [address] [facility] [phone] TROPONIN T Collected: 01/28/2018 Status: F Source: [place] 4:55 AM [facility] REPOSITORY TYPE CODE TESTS RESULT OUT OF REFERENCE UNITS RANGE LAB TROPT 0.000-0.029 ng/mL High Troponin T 0.076 Result Comment: Urgent value previously called on 01/27/188 Performed By: #### MARIN #### [facility] [address] [facility] [phone] NURSING PROG Observed: 01/27/2018 Status: COMPLETED Source: [place] 11:45 PM [facility] REPOSITORY HNO ID: [id number] Author: Nova (Rn) ALLYSON Aviles Service: (none) Author Type: Registered Nurse Type: Nursing Progress Note Filed: 01/28/2018 7:47 AM Note Text: Nursing Progress Note Patient Name: Luz Baca Patient Location: [facility]0262/[id number] Daily Note:01/27/182014 Patient arrives to unit, admission completed, assessment completed. Medications reconciled. Patient educated on unit policies and procedures. 2123 Notified GORGE Aguillon of condition, orders placed. 2148 Troponin results, EKG completed, v paced rhythm results, see paper chart 0565 in with patient. Ok to hold HS [...] orders for patient. Bedside report given to tool and gauge inspector. This note was completed by: Nova Aviles RN PROGRESS Observed: 01/27/2018 Status: COMPLETED Source: [place] 10:51 PM [facility] REPOSITORY HNO ID: [id number] Author: Svetlana Colon (Pharmacist) Service: Pharmacy Author Type: Pharmacist Type: Progress Notes Filed: 01/27/2018 10:51 PM Note Text: CLINICAL PHARMACY Quality Measures PATIENT NAME: Luz Baca SERVICE DATE: 01/27/2018 TIME: 10:51 PM ACEI/ARB indication for Heart Failure/AMI Core Measures Review/Screening: LVEF = 50% from echocardiogram on 12/21/17. DAMION-I/ARB: No, patient's LVEF is greater than 40% SVETLANA COLON, PHARMD, [facility] PAGER / Extension: [phone] TROPONIN T Collected: 01/27/2018 Status: F Source: [place] 9:49 PM [facility] REPOSITORY TYPE CODE TESTS RESULT OUT OF REFERENCE UNITS RANGE LAB TROPT 0.000-0.029 ng/mL High Troponin T 0.059 Result Comment: Called to and read back by: Pete Almonte [address] [place] [address] 01/27/18 Abelardo Mott Performed By: #### MARIN #### [facility] [address] [facility] [phone] BASIC METABOLIC PANL Collected: 01/27/2018 Status: F Source: [place] 9:49 PM [facility]IN[facility] OTHER CAMPUS REPOSITORY TYPE CODE TESTS RESULT OUT OF REFERENCE UNITS RANGE LAB GLU 74-99 mg/dL High Glucose 507 Result Comment: The [place] Diabetes [employer] (ADA) provides guidance for cutoff [...] Standards of Medical Care in Diabetes 2016, [place] [employer]. Diabetes Care. 2016.39(Suppl 1). Called to and read back by: Zan Aviles RN [address] 01/28/2018 0053 by Zan Shah. LAB [...] reflect actual GFR. Performed By: #### JA, AGATA #### [facility] [address] [phone] B-HYDROXYBUTYRATE Collected: Status: F Source: [place] 01/27/2018 9:49 PM CLINIC OTHER CAMPUS REPOSITORY TYPE CODE TESTS RESULT OUT OF RANGE REFERENCE UNITS LAB BHBK <0.28 mmol/L 0.15 B-Hydroxybut yrate Performed By: #### BMP, BHB #### [facility] [address] [facility] [phone] HISTORY PHYSICAL Observed: 01/27/2018 Status: COMPLETED Source: [place] 8:22 PM [facility] OTHER CAMPUS REPOSITORY HNO ID: [id number] Author: Gloria Montana Service: General Internal Medicine Author Type: Physician Type: HANDP Filed: 01/28/2018 5:31 AM Note Text: HOSPITAL MEDICINE HISTORY AND PHYSICAL EXAM PATIENT NAME: Luz Baca SERVICE DATE: 01/27/2018 SERVICE TIME: 8:23 PM Primary Care Physician: Jameson Kamara MD Attending Note I have personally performed a face to face assessment of the patient and have reviewed the POLYSOMNOGRAPHIC TECHNICIAN note. My aguilera findings include: Patient admitted for recurrent chest pain,strong cardiac hx.stress test oct last year [place]. Hx of chronically elevated trops,EKG paced rhythm Has tenderness on chest palpation. Also has uncontrolled blood sugar readings -RBS 530 PLAN Agree with cardiology consult Adjusted insulin doses.Consult endocrinology. Continue current mgt Gloria Montana MD ? NIGHT COVERAGE Page [phone] for any questions between 5.30p-7.30a ASSESSMENT AND [...] disease, with long-term current use of insulin ([facility]) HbA1c: 12.0. Endocrinology saw pt during recent [...] Diagnosis Date - Arthritis - Atrial fibrillation ([facility]) - CAD (coronary artery disease) stents x9, defibrillator, CABG. Seeing Dr. Cardona - Cardiac defibrillator in place - Cardiomegaly - Carotid artery disease ([facility]) left - CKD (chronic kidney disease), stage IV ([facility]) Dr. Martin - COPD (chronic obstructive pulmonary disease) ([facility]) Dr. Cruz - Depression - Diabetes ([facility]) - Diabetic neuropathy ([facility]) - GERD (gastroesophageal reflux disease) - Gout - HH (hiatus hernia) - HH (hiatus hernia) - HOCM (hypertrophic obstructive cardiomyopathy) ([facility]) - HOCM (hypertrophic obstructive cardiomyopathy) ([facility]) S/P Septal Myectomy in 2003. Echo 09/23/10 shows no visable GABRIEL. LVOT gradient is 8mmHg. - HTN (hypertension) - Hyperlipidemia - Morbid obesity with BMI of 40.0-44.9, adult ([facility]) - Pacemaker - Pneumonia h/o pneumonia/bronchitis - [...] age 89, HTN - Heart Failure Mother PA - Cancer Father age 71, lung cancer [...] MGT INIT Observed: 01/27/2018 Status: COMPLETED Source: [facility] 7:10 PM CLINIC OTHER CAMPUS REPOSITORY HNO ID: [id number] Author: Jannette Agustin (Sw) Service: Care Management Author Type: Director Of Labor And Delivery Type: Care Mgt Initial Assessment Filed: 01/27/2018 7:50 PM Note Text: CARE MANAGEMENT: ASSESSMENT AND DISCHARGE PLAN SERVICE DATE: 01/27/2018 SERVICE TIME: 6:50 PM PRIMARY CARE PHYSICIAN: Jameson Kamara MD ADMISSION STATUS: Emergency Needs Prior to Discharge: To Be Determined MEDICAL: Patient/Fingernail Technician Stated Goals: To have reduction in symptoms [...] Current Advance Directive: Health Care Power of Weight Calculator In Chart: No (scanned to registration on 01/27) Up To Date and Valid: No (pt states POA paperwork at home is from out of state, requests to complete udpated paperwork at this time) Fire Prevention Forester Assisted with AD Completion: Yes Action: Patient [...] Walker Has the Patient Been in a Senior Living Facility in the Past 30 days? No SOCIAL: Living Arrangement: Home Lives With: Daughter Financial Resources: Retired Primary Contact: Extended Emergency Contact Information Primary Emergency Contact: Octavia Soliman Address: [address] [place] [address] [place] Mobile Relation: Daughter Supportive: Yes Other Important [...] 0 I feel financially burdened by my aty-am-mnwzpm expenses for my prescription medication: Disagree completely - 0 Patient is categorized as low risk < 2 Are you interested in bedside delivery of your medications? No Pt states preferred community pharmacy is [facility] Food Concerns: In the Last Month, Have [...] Enhanced Home Care POTENTIAL TRANSITION PLANS Home Skilled Nursing OT/PT Met with pt bedside, introduced self [...] 27, 2018 TIME: 7:10 PM PAGER/CONTACT #: [phone] ED NOTE Observed: 01/27/2018 Status: COMPLETED Source: [place] 7:05 PM [facility] OTHER CAMPUS REPOSITORY HNO ID: [id number] Author: Aissatou (Rn) ALLYSON Paige Service: (none) Author Type: Registered Nurse Type: ED Notes Filed: 01/27/2018 7:05 PM Note Text: heads up given to floor PLAN OF CARE Observed: 01/27/2018 Status: COMPLETED Source: [place] 4:38 PM [facility] OTHER CAMPUS REPOSITORY HNO ID: [id number] Author: Herbert Marino (Pharmacist) Service: Pharmacy Author [...] Unknown - Propoxyphene Preferred Pharmacy: [facility] Current PSYCHOLOGICAL OPERATIONS Medications: Prior to Admission medications as of [...] TROPONIN T Collected: 01/27/2018 Status: F Source: [place] 4:24 PM [facility] TYPE CODE TESTS RESULT OUT OF REFERENCE [...] 30 day MACE. Urgent value previously called [id number] Edwin Performed By: #### HSTNT #### [facility] [address] [facility] [phone] ED NOTE Observed: 01/27/2018 Status: COMPLETED Source: [place] 4:19 PM [facility] REPOSITORY HNO ID: [id number] Author: Annabel (Rn) Mina Foster RN Service: (none) Author Type: Registered Nurse Type: ED Notes Filed: 01/27/2018 4:20 PM Note Text: Patient has an ID Band on , has an Allergy Band on, is in the bed/cart with Side Rails up x2, has the Call Bear within reach and has Fall Risk Band on. XR CHEST 1V FRONTAL Observed: 01/27/2018 Status: F Source: [facility] 4:03 PM [facility] REPOSITORY * * *Final Report* * * [...] is unremarkable. 4. Other: Bony structures unremarkable. Top Lift Cutter: SALINAS Transcribe Date/Time: Jan 27 2018 4:25P Dictated by : ELLA FRY DO This examination was interpreted and the report reviewed and electronically signed by: ELLA FRY DO on Jan 27 2018 4:29PM EST [id number] ED NOTE Observed: 01/27/2018 Status: COMPLETED Source: [place] 3:23 PM [facility] OTHER CAMPUS REPOSITORY HNO ID: [id number] Author: Speedy (Rn) ALLYSON Victoria Service: (none) Author Type: Registered Nurse Type: ED Notes Filed: 01/27/2018 3:23 PM Note Text: Patient ambulated to bathroom with daughter CBC AND DIFFERENTIAL Collected: 01/27/2018 Status: F Source: [place] 3:15 PM [facility]INIC OTHER CAMPUS REPOSITORY TYPE [...] k/uL Abs Lymph 1.45 LAB AMONO % Cortland% 9.4 LAB AAMONO <0.87 k/uL Abs [place] 0.72 LAB AEOS % Eosin% 1.2 LAB AAEOS <0.46 k/uL Abs Eosin 0.09 LAB ABASO % Baso% 0.4 LAB AABASO <0.11 k/uL Abs Baso 0.03 Performed By: #### CBCDIF, PT, PTT, CMP, LIPA, MG1 #### [facility] [address] [place] [address] PROTIME Collected: 01/27/2018 Status: F Source: [place] 3:15 PM [facility] REPOSITORY TYPE CODE TESTS RESULT OUT OF RANGE REFERENCE UNITS LAB PSEC 9.7-13.0 sec PT Sec 10.1 LAB INR 0.9-1.3 PT INR 1.0 Result Comment: Vitamin K Antagonist (VKA) Therapeutic Range: INR 2 to 3 (Target INR of 2.5) Note: For patients treated with VKA drugs, such as warfarin, the [place] [employer]icians 2012 Guideline recommends [...] et al. Chest 2012, 141:7S-47S Jose R NGUYEN, et al. [facility] 2017, 70: 252-289 Performed By: #### CBCDIF, PT, PTT, CMP, LIPA, MG1 #### [facility] [address] [place] [address] APTT Collected: 01/27/2018 Status: F Source: [place] 3:15 PM [facility] REPOSITORY TYPE CODE TESTS RESULT OUT OF [...] laboratory APTT reagent in use throughout the [facility]. Performed By: #### CBCDIF, PT, PTT, CMP, LIPA, MG1 #### [facility] [address] [facility] [phone] COMP METABOLIC PANEL Collected: 01/27/2018 Status: F Source: [place] 3:15 PM CLINIC OTHER CAMPUS REPOSITORY TYPE [...] mg/dL Glucose High 423 Result Comment: The [place] Diabetes [employer] (ADA) provides guidance for cutoff [...] Standards of Medical Care in Diabetes 2016, [place] [employer]. Diabetes Care. 2016.39(Suppl 1). LAB [...] CBCDIF, PT, PTT, CMP, LIPA, MG1 #### [facility] [address] [place], [place] [phone] LIPASE Collected: 01/27/2018 Status: F Source: [place] 3:15 PM [facility] OTHER [place] REPOSITORY TYPE CODE TESTS RESULT OUT OF REFERENCE UNITS RANGE LAB LIPA 16-61 U/L High Lipase 80 Performed By: #### CBCDIF, PT, PTT, CMP, LIPA, MG1 #### [facility] [address] [place], [place] [phone] MAGNESIUM Collected: 01/27/2018 Status: F Source: [place] 3:15 PM [facility] OTHER [place] REPOSITORY TYPE CODE TESTS RESULT OUT OF REFERENCE UNITS RANGE LAB MG 1.7-2.3 mg/dL Magnesium 2.1 Performed By: #### CBCDIF, PT, PTT, CMP, LIPA, MG1 #### [facility] [address] [place], [place] [phone] NT PRO BNP Collected: 01/27/2018 Status: F Source: [place] 3:15 PM [facility] REPOSITORY TYPE CODE TESTS RESULT OUT OF REFERENCE UNITS RANGE LAB PBNP <450 pg/mL High PRO B Natr 1303 Peptide Performed By: #### NTBNP, CKCKMB #### [facility] [address] [place], [place] [phone] CK, TOTAL AND CKMB Collected: 01/27/2018 Status: F Source: [place] 3:15 PM [facility] OTHER [place] REPOSITORY TYPE CODE TESTS RESULT OUT OF REFERENCE UNITS RANGE LAB CK 42-196 U/L 49 CK LAB MB <4.3 ng/mL High MB 5.8 LAB CKMBRI 0.0-4.0 % CK CK MB MB % not % reported with CK <100 U/L. Performed By: #### NTBNP, CKCKMB #### [facility] [address] [facility] [phone] HIGH SENS TROPONIN T Collected: 01/27/2018 Status: F Source: [place] 3:15 PM [facility] REPOSITORY TYPE CODE TESTS RESULT OUT OF [...] to and read back by: Vimal Felton [facility] 01/27/2018 Yonis Presley Performed By: #### HSTNT #### [facility] [address] [facility] [phone] ED PROV NOTE Observed: 01/27/2018 Status: COMPLETED Source: [place] 3:08 PM [facility] REPOSITORY HNO ID: [id number] Author: Jameson Hernandez DO Service: Emergency Medicine [...] the day today. History provided by: Patient hauling contractor used: No PAST MEDICAL HISTORY Diagnosis Date - Arthritis - Atrial fibrillation (HCC) - CAD (coronary artery disease) stents x9, defibrillator, CABG. Seeing Dr. [place] - Cardiac defibrillator in place - Cardiomegaly - Carotid artery disease ([facility]) left - CKD (chronic kidney disease), stage IV ([facility]) Dr. Martin - COPD (chronic obstructive pulmonary disease) ([facility]) Dr. Curz - Depression - Diabetes ([facility]) - Diabetic neuropathy ([facility]) - GERD (gastroesophageal reflux disease) - Gout - HH (hiatus hernia) - HH (hiatus hernia) - HOCM (hypertrophic obstructive cardiomyopathy) ([facility]) - HOCM (hypertrophic obstructive cardiomyopathy) ([facility]) S/P Septal Myectomy in 2003. Echo 09/23/10 shows no visable GABRIEL. LVOT gradient is 8mmHg. - HTN (hypertension) - Hyperlipidemia - Morbid obesity with BMI of 40.0-44.9, adult ([facility]) - Pacemaker - Pneumonia h/o pneumonia/bronchitis - Renal insufficiency 2003 post op - Sleep apnea 2011 not on CPAP, unable to tolerate mask 02/2017 - SVT (supraventricular tachycardia) ([facility]) NSVT and questionable VT in 2003 post [...] age 89, HTN - Heart Failure Mother PA - Cancer Father age 71, lung cancer [...] signs reviewed Triage note reviewed Placed on teletypesetter monitor Placed on supplemental O2 Medications administered aspirin Consultation obtained marketing account executive Dr. Anjana Consultation recommendations observation admission Discussed with admitting hospital as Dr. Montana - agreeable to admission ED Course Stable [...] pain-free in the emergency department. Discussed with marketing account executive as noted above, recommends observation admission, no indication for transfer to higher level facility at this time. Discussed with admitting hospitalist who is agreeable to admission. Encounter Diagnosis ICD-10-CM 1. Chest pain, unspecified type R07.9 2. Dyspnea, unspecified type R06.00 Plan The Patient was ADMITTED TO: Regular nursing floor. Case discussed with admitting physician, Dr. Montana. Condition at time of disposition: stable SIGNATURE: DO Jameson Cunha DO 01/27/18 1818 ED NOTE Observed: 01/27/2018 Status: COMPLETED Source: [place] 2:47 PM [facility] OTHER [place] REPOSITORY HNO ID: [id number] Author: Anna (Rn) ALLYSON Valencia Service: (none) Author Type: Registered Nurse Type: ED Notes Filed: 01/27/2018 2:48 PM Note Text: Patient sent over by physician for chest pain which started yesterday. HOSP Observed: 01/27/2018 Status: COMPLETED Source: [place] 12:00 AM [facility] OTHER [place] REPOSITORY Patient:Luz Baca MRN: <[id number]> Height:5' 8(1.727 m) Weight:256 lb 6.4 oz [...] suppository (DULCOLAX) sodium chloride 0.65 % 2 Mott (AYR, OCEAN) gabapentin 200 mg cap(s) (NEURONTIN) [...] Hyperlipidemia [E78.5] COPD (chronic obstructive pulmonary disease) ([facility]) [J44.9] Sleep apnea [G47.30] GERD (gastroesophageal reflux disease) [K21.9] Arthritis [M19.90] Depression [F32.9] Atrial fibrillation ([facility]) [I48.91] Uncontrolled type 2 diabetes mellitus with stage 3 chronic kidney disease, with long-term current use of insulin ([facility]) [E11.22, E11.65, N18.3, Z79.4] Obesity [E66.09] Gout [M10.9] Pacemaker [Z95.0] Chronic combined systolic and diastolic CHF (congestive heart failure) ([facility]) [I50.42] Pulmonary hypertension [I27.20] Hyponatremia [E87.1] Acute renal failure superimposed on stage 3 chronic kidney disease ([facility]) [N17.9, N18.3] Allergies: Aspirin Bactrim [Sulfamethoxazole-Trimethoprim] Latex Penicillins Tetracycline Atorvastatin Codeine Dilaudid [Hydromorphone (Bulk)] Meperidine Pentazocine Pioglitazone Propoxyphene Date Verified: 02/14/18 Lab Values Lab Value Units Date High Low POTA* 5.0 mmol/L 02/15/2018 5.1 3.7 STAR* 37.0 % 02/15/2018 46.0 36.0 Progress Notes ([facility]): Gloria Maya Ma 01/28/2018 10:06 AM Signed ----- Message from Jameson Kamara sent at 01/28/2018 8:08 AM EDT ----- CXR shows prominence in left lung base. Possible infection vs scarring vs air trapping. Gloria Maya Ma 01/28/2018 10:07 AM Signed ----- Message from Jameson Adams) Koffi sent at 01/27/2018 7:57 AM EDT ----- No sign of infection or anemia. Elevated magnesium without supplementation. Stable renal function with elevated glucose. BNP elevated, but improved compared to 7 days ago. Recommend continuing increased dose of lasix. Please print labs and fax to equipment installer Dr. Martin for their review and recommendations. Sean Han Ma 01/28/2018 10:43 AM Signed Unable to reach patient/daughter. No option to LM . Will try at a later time. Labs faxed to Dr. Martin' office. Jhon Botello RN 01/28/2018 11:01 AM Signed Daughter returned call and given provider's message below with verbalized understanding. Daughter reports patient was admitted to [facility] yesterday. Jameson Kamara MD 01/28/2018 11:22 [...] the day today. History provided by: Patient hauling contractor used: No PAST MEDICAL HISTORY Diagnosis Date - Arthritis - Atrial fibrillation (HCC) - CAD (coronary artery disease) stents x9, defibrillator, CABG. Seeing Dr. Cardona - Cardiac defibrillator in place - Cardiomegaly - Carotid artery disease ([facility]) left - CKD (chronic kidney disease), stage IV ([facility]) Dr. Martin - COPD (chronic obstructive pulmonary disease) ([facility]) Dr. Cruz - Depression - Diabetes ([facility]) - Diabetic neuropathy ([facility]) - GERD (gastroesophageal reflux disease) - Gout - HH (hiatus hernia) - HH (hiatus hernia) - HOCM (hypertrophic obstructive cardiomyopathy) ([facility]) - HOCM (hypertrophic obstructive cardiomyopathy) ([facility]) S/P Septal Myectomy in 2003. Echo 09/23/10 shows no visable GABRIEL. LVOT gradient is 8mmHg. - HTN (hypertension) - Hyperlipidemia - Morbid obesity with BMI of 40.0-44.9, adult ([facility]) - Pacemaker - Pneumonia h/o pneumonia/bronchitis - Renal insufficiency 2003 post op - Sleep apnea 2011 not on CPAP, unable to tolerate mask 02/2017 - SVT (supraventricular tachycardia) ([facility]) NSVT and questionable VT in 2003 post [...] age 89, HTN - Heart Failure Mother PA - Cancer Father age 71, lung cancer [...] signs reviewed Triage note reviewed Placed on teletypesetter monitor Placed on supplemental O2 Medications administered aspirin Consultation obtained marketing account executive Dr. Yeung Consultation recommendations observation admission Discussed with admitting hospital as Dr. Montana - agreeable to admission ED Course Stable [...] pain-free in the emergency department. Discussed with marketing account executive as noted above, recommends observation admission, no indication for transfer to higher level facility at this time. Discussed with admitting hospitalist who is agreeable to admission. Encounter Diagnosis ICD-10-CM 1. Chest pain, unspecified type R07.9 2. Dyspnea, unspecified type R06.00 Plan The Patient was ADMITTED TO: Regular nursing floor. Case discussed with admitting physician, Dr. Montana. Condition at time of disposition: stable SIGNATURE: DO Jameson Cunha DO 01/27/18 1818 Speedy Victoria, RN, RN 01/27/2018 3:23 PM Signed Patient ambulated to bathroom with daughter Annabel Enriquez Kirt, RN, RN 01/27/2018 4:20 PM Signed Patient has an ID Band on , has an Allergy Band on, is in the bed/cart with Side Rails up x2, has the Call Bera within reach and has Fall Risk Band on. HERBERT MARINO PHARMACIST 01/27/2018 4:40 PM Signed MEDICATION HISTORY [...] - Pioglitazone Unknown - Propoxyphene Preferred Pharmacy: [facility] Current PSYCHOLOGICAL OPERATIONS Medications: Prior to Admission medications as of [...] Prior to Discharge: To Be Determined MEDICAL: Patient/Fingernail Technician Stated Goals: To have reduction in symptoms [...] Current Advance Directive: Health Care Power of Weight Calculator In Chart: No (scanned to registration on 01/27) Up To Date and Valid: No (pt states POA paperwork at home is from [place] of [place], requests to complete udpated paperwork at this time) Fire Prevention Forester Assisted with AD Completion: Yes Action: Patient [...] Care? Home Health Care Agency: [facility]; ; Active. Equipment Prior to Admission: Bedside [facility] Bed Oxygen 2.5 liters per minute Rollator Scooter Tub bench/chair Walker Has the Patient Been in a Senior Living Facility in the Past 30 days? No SOCIAL: Living Arrangement: Home Lives With: Daughter Financial Resources: Retired Primary Contact: Extended Emergency Contact Information Primary Emergency Contact: Octavia Soliman Address: [address] [place] [address] Mobile Relation: Daughter Supportive: Yes Other Important [...] 0 I feel financially burdened by my [id number] expenses for my prescription medication: Disagree completely - 0 Patient is categorized as low risk < 2 Are you interested in bedside delivery of your medications? No Pt states preferred community pharmacy is [facility] Food Concerns: In the Last Month, Have [...] Enhanced Home Care POTENTIAL TRANSITION PLANS Home Skilled Nursing OT/PT Met with pt bedside, introduced self [...] 27, 2018 TIME: 7:10 PM PAGER/CONTACT #: [phone] Gloria Montana MD 01/28/2018 5:31 AM Signed HOSPITAL MEDICINE HISTORY AND PHYSICAL EXAM PATIENT NAME: Luz Baca SERVICE DATE: 01/27/2018 SERVICE TIME: 8:23 PM Primary Care Physician: Jameson Kamara MD Attending Note I have personally performed a face to face assessment of the patient and have reviewed the POLYSOMNOGRAPHIC TECHNICIAN note. My aguilera findings include: Patient admitted for recurrent chest pain,strong cardiac hx.stress test oct last year [place]. Hx of chronically elevated trops,EKG paced rhythm Has tenderness on chest palpation. Also has uncontrolled blood sugar readings -RBS 530 PLAN Agree with cardiology consult Adjusted insulin doses.Consult endocrinology. Continue current mgt Gloria Montana MD ? NIGHT COVERAGE Page [phone] for any questions between 5.30p-7.30a ASSESSMENT AND PLAN Active Hospital Problems Diagnosis - Chest pain in adult HS trop 55, repeat 56 which is similar to readings at previous admission likely from CKD. Pt had external stress test 07/2017: no evidence of ischemia. Cycle CE, monitor on tele. Cards consult. - Chronic combined systolic and diastolic CHF (congestive heart failure) ([facility]) Pt was just hospitalized for CHF exacerbation [...] disease, with long-term current use of insulin ([facility]) HbA1c: 12.0. Endocrinology saw pt during recent [...] - CKD (chronic kidney disease), stage IV ([facility]) Dr. Martin - COPD (chronic obstructive pulmonary disease) ([facility]) Dr. Cruz - Depression - Diabetes (HCC) - Diabetic neuropathy ([facility]) - GERD (gastroesophageal reflux disease) - Gout - HH (hiatus hernia) - HH (hiatus hernia) - HOCM (hypertrophic obstructive cardiomyopathy) ([facility]) - HOCM (hypertrophic obstructive cardiomyopathy) ([facility]) S/P Septal Myectomy in 2003. Echo 09/23/10 shows no visable GABRIEL. LVOT gradient is 8mmHg. - HTN (hypertension) - Hyperlipidemia - Morbid obesity with BMI of 40.0-44.9, adult ([facility]) - Pacemaker - Pneumonia h/o pneumonia/bronchitis - Renal insufficiency 2003 post op - Sleep apnea 2011 not on CPAP, unable to tolerate mask 02/2017 - SVT (supraventricular tachycardia) ([facility]) NSVT and questionable VT in 2003 post [...] age 89, HTN - Heart Failure Mother PA - Cancer Father age 71, lung cancer [...] Note Patient Name: Luz Baca Patient Location: [place] [id number] Daily Note:01/27/182014 Patient arrives to unit, admission completed, assessment completed. Medications reconciled. Patient educated on unit policies and procedures. 2123 Notified GORGE Aguillon of condition, orders placed. 2148 Troponin results, EKG completed, v paced rhythm results, see paper chart 2122 in with patient. Ok to hold HS [...] orders for patient. Bedside report given to tool and gauge inspector. This note was completed by: Nvoa Aviles RN Previous Version Shruti Nair MD [...] AND WEEKEND COVERAGE: Nights: Please contact pager [phone]. Subjective Subjective Pt still reports chest pain, [...] 123/57 Pulse: 64 65 66 63 Resp: 18 20 20 18 Temp: 36.4 ?C (97.5 ?F) 36.5 ?C [...] 28, 2018 TIME: 1:13 PM PAGER/CONTACT #: [phone] Clemente Rose (Sales Representative [employer]) 01/28/2018 2:10 PM Attested Attestation signed by Evy Kilgore (Pharmacist) at 01/28/2018 3:17 PM Preceptor Addendum: This case has been reviewed and discussed with the pharmacy operations manager. I agree with the assessment/plan described by [...] RECOMMENDATIONS (IF ANY): None SIGNATURE: Clemente Rose (Sales Representative [employer]) PAGER: [phone] Jose C Yeung MD 01/29/2018 [...] January 28, 2018 TIME: 2:23 PM PAGER: [phone] CONSULT: CARDIOLOGY SERVICE CONSULTING PHYSICIAN: Jose C [...] Diagnosis Date - Arthritis - Atrial fibrillation ([facility]) - CAD (coronary artery disease) stents x9, defibrillator, CABG. Seeing Dr. Cardona - Cardiac defibrillator in place - Cardiomegaly - Carotid artery disease ([facility]) left - CKD (chronic kidney disease), stage IV ([facility]) Dr. Martin - COPD (chronic obstructive pulmonary disease) ([facility]) Dr. Cruz - Depression - Diabetes ([facility]) - Diabetic neuropathy ([facility]) - GERD (gastroesophageal reflux disease) - Gout - HH (hiatus hernia) - HH (hiatus hernia) - HOCM (hypertrophic obstructive cardiomyopathy) ([facility]) - HOCM (hypertrophic obstructive cardiomyopathy) ([facility]) S/P Septal Myectomy in 2003. Echo 09/23/10 shows no visable GABRIEL. LVOT gradient is 8mmHg. - HTN (hypertension) - Hyperlipidemia - Morbid obesity with BMI of 40.0-44.9, adult ([facility]) - Pacemaker - Pneumonia h/o pneumonia/bronchitis - Renal insufficiency 2003 post op - Sleep apnea 2012 not on CPAP, unable to tolerate mask 02/2017 - SVT (supraventricular tachycardia) ([facility]) NSVT and questionable VT in 2003 post [...] age 89, HTN - Heart Failure Mother PA - Cancer Father age 71, lung cancer [...] 28, 2018 TIME: 4:08 PM PAGER/CONTACT #: [phone] CHARLOTTE LEARY RN, RN 01/29/2018 6:16 PM Signed Nursing Progress Note Patient Name: Luz Baca Patient Location: [facility]0262/[id number] Daily Note:0744: Attending paged to address potassium [...] isolation. This note was completed by: ALLYSON ANDERSON Amalfitano, DO 01/29/2018 12:54 PM Signed 01/29/2018 CONSULT [...] DATE: January 29, 2018 TIME: 1010 PAGER: [phone] CONSULT PROGRESS NOTE: CARDIOLOGY SERVICE PCP: Jameson [...] - CKD (chronic kidney disease), stage IV ([facility]) Dr. Martin - COPD (chronic obstructive pulmonary disease) ([facility]) Dr. Cruz - Depression - Diabetes ([facility]) - Diabetic neuropathy ([facility]) - GERD (gastroesophageal reflux disease) - Gout - HH (hiatus hernia) - HH (hiatus hernia) - HOCM (hypertrophic obstructive cardiomyopathy) ([facility]) - HOCM (hypertrophic obstructive cardiomyopathy) ([facility]) S/P Septal Myectomy in 2003. Echo 09/23/10 shows no visable GABRIEL. LVOT gradient is 8mmHg. - HTN (hypertension) - Hyperlipidemia - Morbid obesity with BMI of 40.0-44.9, adult ([facility]) - Pacemaker - Pneumonia h/o pneumonia/bronchitis - Renal insufficiency 2003 post op - Sleep apnea 2011 not on CPAP, unable to tolerate mask 02/2017 - SVT (supraventricular tachycardia) ([facility]) NSVT and questionable VT in 2003 post [...] age 89, HTN - Heart Failure Mother PA - Cancer Father age 71, lung cancer [...] AND WEEKEND COVERAGE: Nights: Please contact pager [phone]. Subjective Subjective Chest pain has improved, less [...] 29, 2018 TIME: 1:10 PM PAGER/CONTACT #: [phone] Som Feliciano MD 01/29/2018 5:04 PM Signed [...] 44 units. Monitor blood sugar. Call endo deputy felony clerk if blood sugar <80 or >210. Som Feliciano MD January 29, 2018 Sohail Hernandez, RN, RN 01/30/2018 3:38 AM Addendum Nursing Progress Note Patient Name: Luz Baca Patient Location: [facility]261/[id number] Daily Note:01/29/182025 Spoke with Dr. Feliciano regarding [...] received This note was completed by: Sohail Hernandez, ALLYSON Previous Version CHARLOTTE LEARY, RN, RN 01/30/2018 6:33 PM Signed Nursing Progress Note Patient Name: Luz Baca Patient Location: [facility]-026/[id number] Daily Note:0736: Pt reporting pain 5/10 to the chest. It is not mid-sternal pain, and she describes it as a dull pain to the areas where the security shift supervisor hospitalist pushed on overnight. She was prescribed a 1x dose of oxycodone 10mg PO at approximately 2310 last PM for the same type of pain, and the security shift supervisor RN has explained that the patient [...] AND WEEKEND COVERAGE: Nights: Please contact pager [phone]. Subjective Subjective Patient is still c/o intermittent [...] 30, 2018 TIME: 12:19 PM PAGER/CONTACT #: [phone] Clay Garcia DO 01/30/2018 12:24 PM Signed 01/30/2018 CONSULT PROGRESS NOTE SERVICE TIME: 0910 ASSESSMENT AND PLAN 1. ASHD - CABGx3 2004, PCIx6 RCA 2013, PCIx3 2014 2. HCM [...] will follow with Dr. Michael Cardona in [place] for Cardiology SIGNATURE: Clay Garcia DO, FACC, FCCP, FACOI. PATIENT NAME: Luz Baca DATE: January 30, 2018 TIME: 1010 PAGER: [phone] CONSULT PROGRESS NOTE: CARDIOLOGY SERVICE PCP: Jameson [...] place - Cardiomegaly - Carotid artery disease ([facility]) left - CKD (chronic kidney disease), stage IV ([facility]) Dr. Martin - COPD (chronic obstructive pulmonary disease) ([facility]) Dr. Cruz - Depression - Diabetes ([facility]) - Diabetic neuropathy ([facility]) - GERD (gastroesophageal reflux disease) - Gout - HH (hiatus hernia) - HH (hiatus hernia) - HOCM (hypertrophic obstructive cardiomyopathy) ([facility]) - HOCM (hypertrophic obstructive cardiomyopathy) ([facility]) S/P Septal Myectomy in 2003. Echo 09/23/10 shows no visable GABRIEL. LVOT gradient is 8mmHg. - HTN (hypertension) - Hyperlipidemia - Morbid obesity with BMI of 40.0-44.9, adult ([facility]) - Pacemaker - Pneumonia h/o pneumonia/bronchitis - Renal insufficiency 2003 post op - Sleep apnea 2011 not on CPAP, unable to tolerate mask 02/2017 - SVT (supraventricular tachycardia) ([facility]) NSVT and questionable VT in 2003 post [...] age 89, HTN - Heart Failure Mother PA - Cancer Father age 71, lung cancer [...] - - 65 - - - - 01/27/182220 - - - 63 20 - - [...] 30, 2018 TIME: 0910 PAGER/CONTACT #: Sohail Hernandez RN, RN 01/31/2018 6:26 AM Addendum Nursing Progress Note Patient Name: Luz Baca Patient Location: [facility]2/[id number] Daily Note:01/30/[address] Feliciano regarding pt blood sugar, orders to give scheduled Lantus and Humalog. [address] Feliciano regarding pt blood sugars, no new orders. This note was completed by: Sohail Hernandez RN Previous Version Reanna Davalos, RN, RN 01/31/2018 7:26 PM Addendum Nursing Progress Note Patient Name: Luz Baca Patient Location: NE2N-0262/CL-[id number]-0185-1 Daily Note: Pt AANDO x 3, cooperative. [...] 31, 2018 TIME: 12:20 PM PAGER/CONTACT #: [phone] Som Feliciano MD 01/31/2018 8:12 PM Signed [...] Diagnosis Date - Arthritis - Atrial fibrillation ([facility]) - CAD (coronary artery disease) stents x9, defibrillator, CABG. Seeing Dr. Cardona - Cardiac defibrillator in place - Cardiomegaly - Carotid artery disease ([facility]) left - CKD (chronic kidney disease), stage IV ([facility]) Dr. Martin - COPD (chronic obstructive pulmonary disease) ([facility]) Dr. Cruz - Depression - Diabetes ([facility]) - Diabetic neuropathy ([facility]) - GERD (gastroesophageal reflux disease) - Gout - HH (hiatus hernia) - HH (hiatus hernia) - HOCM (hypertrophic obstructive cardiomyopathy) ([facility]) - HOCM (hypertrophic obstructive cardiomyopathy) ([facility]) S/P Septal Myectomy in 2003. Echo 09/23/10 shows no visable GABRIEL. LVOT gradient is 8mmHg. - HTN (hypertension) - Hyperlipidemia - Morbid obesity with BMI of 40.0-44.9, adult ([facility]) - Pacemaker - Pneumonia h/o pneumonia/bronchitis - [...] age 89, HTN - Heart Failure Mother PA - Cancer Father age 71, lung cancer [...] 31, 2018 TIME: 6:52 PM PAGER/CONTACT #: [phone] Radha Edmonds MD 01/31/2018 8:18 PM Signed HOSPITAL MEDICINE PROGRESS NOTE Name: Luz Baca SERVICE DATE: 01/31/2018 SERVICE TIME: 8:11 PM LOCATION / ROOM: [facility]0262/[id number] Hospital Medicine/Primary Attending: Radha Edmonds MD NIGHT COVERAGE BETWEEN 5.30P-7.30A Page [phone] ASSESSMENT AND PLAN Principal Problem: ?? Chest [...] disease) ? CABGx2 (DEBORAH-LAD, SVG-PDA ) in 2003 [...] AND HS Francis Rachel 9 Units at 01/31/18 1801 insulin glargine 30 Units injection (long acting) (LANTUS) 30 Units SUBCUTANEOUS DAILY (8 AM) Shruti Nair 30 Units at 01/31/18 0931 spironolactone 25 mg tab(s) (ALDACTONE) 25 mg ORAL BID 9a/5p Jose C Yeung 25 mg at 01/30/18 1801 gabapentin 600 mg cap(s) (NEURONTIN) 600 mg ORAL BID Raymond Rangel (Pa) 600 mg at 01/31/18 0936 simvastatin 40 mg tab(s) (ZOCOR) 40 mg ORAL AT BEDTIME Raymond Rangel (Pa) 40 mg at 01/30/182054 ipratropium-albuterol 3 mL nebulizer solution (DUONEB) 3 mL INHALATION q 4 H PRN Raymond Nayak) Claire 3 mL at 01/31/18 0809 apixaban 5 [...] DESENEX) 1 application TOPICAL BID Gloria Ebonie Montana 1 application at 01/31/18 0900 OBJECTIVE PHYSICAL [...] Patient is already anti-coagulated. Disposition: Home with [facility] Plan of care discussed with: Patient [...] Note Patient Name: Luz Baca Patient Location: [place] [address] [address]- Daily Note:0730- rounds done and noted pt. [...] SERVICE TIME: 2:16 PM LOCATION / ROOM: [place] [address]/[id number] [facility] Medicine/Primary Attending: Radha Edmonds MD NIGHT COVERAGE BETWEEN 5.30P-7.30A Page [phone] ASSESSMENT AND PLAN Principal Problem: ? Chest [...] disease, with long-term current use of insulin ([facility]) ? HbA1c: 12.0. ?Endocrinology consulted. On Lantus [...] (LANTUS) 48 Units SUBCUTANEOUS AT BEDTIME Som Orra 48 Units at 01/31/18 2143 acetaminophen 650 mg tab(s) (TYLENOL) 650 mg ORAL q 6 H PRN Shameer Khubber 650 mg at 01/30/18 2137 insulin lispro injection (rapid acting) (HumaLOG) SUBCUTANEOUS w MEALS AND HS Francis Ramos 9 Units at 02/01/18 1221 gabapentin 600 [...] AF, DESENEX) 1 application TOPICAL BID Gloria Montana 1 application at 01/31/18 2144 OBJECTIVE PHYSICAL [...] Patient is already anti-coagulated. Disposition: Home with [facility] Plan of care discussed with: Patient [...] Martin - COPD (chronic obstructive pulmonary disease) ([facility]) Dr. Cruz - Depression - Diabetes (HCC) - Diabetic neuropathy (HCC) - Edema - GERD (gastroesophageal reflux disease) - Gout with hyperuricemia - HH (hiatus hernia) - HOCM (hypertrophic obstructive cardiomyopathy) ([facility]) S/P Septal Myectomy in 2003. Now with LVEF 50% and mod/severe pulm HTN. - HTN (hypertension) - Hyperlipidemia - Morbid obesity with BMI of 40.0-44.9, adult (HCC) - Sleep apnea 2011 not on CPAP, unable to tolerate mask 02/2017 - SVT (supraventricular tachycardia) ([facility]) NSVT and questionable VT in 2003 post [...] age 89, HTN - Heart Failure Mother PA - Cancer Father age 71, lung cancer [...] No nausea, vomiting, or diarrhea : Negative RETURN TO FACTORY CLERK: Not reviewed MUSCULOSKELETAL: Negative for joint pain [...] each meal and at bedtime. Call Endo deputy felony clerk if blood sugar is less than 80 [...] Diagnosis Date - Arthritis - Atrial fibrillation ([facility]) - CAD (coronary artery disease) stents x9, defibrillator, CABG. Seeing Dr. Cardona - Cardiac defibrillator in place - Cardiomegaly - Carotid artery disease ([facility]) left - Chronic kidney disease (CKD) stage G3b/A2, moderately decreased glomerular filtration rate (GFR) between 30-44 mL/min/1.73 square meter and albuminuria creatinine ratio between 30-299 mg/g Dr. Martin - COPD (chronic obstructive pulmonary disease) ([facility]) Dr. Cruz - Depression - Diabetes ([facility]) - Diabetic neuropathy ([facility]) - Edema - GERD (gastroesophageal reflux disease) - Gout with hyperuricemia - HH (hiatus hernia) - HOCM (hypertrophic obstructive cardiomyopathy) ([facility]) S/P Septal Myectomy in 2003. Now with LVEF 50% and mod/severe pulm HTN. - HTN (hypertension) - Hyperlipidemia - Morbid obesity with BMI of 40.0-44.9, adult ([facility]) - Sleep apnea 2011 not on CPAP, unable to tolerate mask 02/2017 - SVT (supraventricular tachycardia) ([facility]) NSVT and questionable VT in 2003 post op CURRENT MEDICATION: Current Facility-Administered Medications: docusate sodium 100 mg cap(s) (COLACE) 100 mg ORAL BID Radha Adams) Thuestad 100 mg at 02/02/18 1046 polyethylene glycol 3350 17 g packet (MIRALAX, GLYCOLAX) 17 g ORAL DAILY [place] Ebonie Adams) Thuestad 17 g at 02/02/18 [...] AF, DESENEX) 1 application TOPICAL BID Gloria Montana 1 application at 02/02/18 1034 CURRENT ALLERGIES: [...] 74 - 99 mg/dL Final Comment: Meter ID:[id number] SIGNATURE: Shruti Nair MD DATE: February 02, [...] SERVICE TIME: 7:39 PM LOCATION / ROOM: [facility]0262/[id number] Hospital Medicine/Primary Attending: Radha Edmonds MD NIGHT COVERAGE BETWEEN 5.30P-7.30A Page [phone] ASSESSMENT AND PLAN ? Chest pain in [...] disease, with long-term current use of insulin ([facility]) ? HbA1c: 12.0. ?Endocrinology consulted. On Lantus [...] 02/02/18 1052 sodium chloride 0.65 % 2 Mott (AYR, OCEAN) 2 Mott EACH NOSTRIL PRN Zuhair Wick apixaban 2.5 [...] DESENEX) 1 application TOPICAL BID Gloria Ebonie Montana 1 application at 02/02/18 1034 OBJECTIVE PHYSICAL [...] Patient is already anti-coagulated. Disposition: Home with [facility] Plan of care discussed with: Patient SIGNATURE: Radha Edmonds MD DATE: February 02, 2018 TIME: 7:39 PM CHARLOTTE LEARY RN, RN 02/03/2018 6:30 PM Signed Nursing Progress Note Patient Name: Luz Baca Patient Location: [facility]0262/[id number] Daily Note:0828: Endocrinology paged at this time [...] Hypertension Hyperlipidemia Copd (Chronic Obstructive Pulmonary Disease) ([facility]) Sleep Apnea Gerd (Gastroesophageal Reflux Disease) Arthritis Depression Atrial Fibrillation ([facility]) Uncontrolled Type 2 Diabetes Mellitus With Stage 3 Chronic Kidney Disease, With Long-Term Current Use of Insulin ([facility]) Class 1 Obesity Due to Excess Calories With Serious Comorbidity in Adult Gout Pacemaker Chronic Combined Systolic and Diastolic Chf (Congestive Heart Failure) ([facility]) Pulmonary Hypertension Chest Pain in Adult Attendees Present at Rounds: Fire Prevention Forester: aVnessa Patient: Luz Condein Staff Nurse: Charlotte Needs Discussed on Rounds: [...] [facility], Dtr will transport. This note routed [facility] Nursing: Cardiac Intervention(s) Plan: Monitor and Assess Vital Signs and IANDO Report Significant Changes to LIP;Monitor Labs;Monitor Rhythm Strips and EKG and Report Changes to LIP;Oxygen as Ordered;Review Current Medication and Medication History and Administer Medications as Ordered;Review Medications, Self I ANDO, Daily Weights, Diet and Fluid Restriction and Activity Level;Notify LIP for Changes to Baseline Status Cardiac Goals/Outcomes: Displays No Signs of Ectopy;VICE PRESIDENT PROCESS, Cardiac Enzymes, K, Mg, Hgb/Hct Levels Within [...] in IFMS Score);Pain Management;Assist with Ambulation and Transfers;[place] Safety Measures;Pressure Ulcer Prevention;Review Current Medication and Medication History and Administer Medications as Ordered Mobility Patient/Family Goals: Patient Attained Highest Level of Functional of Mobility Mobility Goal Target Achievement Date: 02/04/18 DOCUMENTED BY: Vanessa Gonzalez RN PATIENT NAME: Luz Baca DATE: February 03, 2018 TIME: 9:41 AM CSN: [id number] Malena Bray MD 02/03/2018 10:34 AM Signed [...] SERVICE TIME: 2:49 PM LOCATION / ROOM: [place] [address]/[id number] Hospital Medicine/Primary Attending: Radha Edmonds MD NIGHT COVERAGE BETWEEN 5.30P-7.30A Page [phone] ASSESSMENT AND PLAN Chest pain in adult [...] Adams) Thuestad sodium chloride 0.65 % 2 Mott (AYR, OCEAN) 2 Mott EACH NOSTRIL PRN Zuhair Wick apixaban 2.5 [...] ORAL q 6 H PRN Zuhair Odonnell Chacko 4 mg at 02/02/18 0807 acetaminophen 650 [...] DAILY Raymond (Pa) Claire 60 mg at 02/03/18 0849 0.9% [...] AF, DESENEX) 1 application TOPICAL BID Gloria Montana 1 application at 02/03/18 0851 OBJECTIVE PHYSICAL [...] Patient is already anti-coagulated. Disposition: Home with [facility] Plan of care discussed with: Patient SIGNATURE: Radha Edmonds MD DATE: February 03, 2018 TIME: 2:49 PM CHARLOTTE LEARY RN, RN 02/04/2018 6:46 PM Signed Nursing Progress Note Patient Name: Luz Baca Patient Location: NE-2N-0262/[id number] Daily Note:6786: Attending paged to address potassium reading 5.2 [...] SERVICE TIME: 3:00 PM LOCATION / ROOM: [facility]0262/[id number] Hospital Medicine/Primary Attending: Radha Edmonds MD NIGHT COVERAGE BETWEEN 5.30P-7.30A Page [phone] ASSESSMENT AND PLAN Chest pain in adult [...] mg cap(s) (COLACE) 100 mg ORAL BID [place]ie Adams) Thuestad 100 mg at 02/04/18 0843 polyethylene glycol 3350 17 g packet (MIRALAX, GLYCOLAX) 17 g ORAL DAILY [place] Ebonie Adams) Thuestad 17 g at 02/02/18 1046 bisacodyl 10 mg suppository (DULCOLAX) 10 mg RECTAL DAILY PRN Radha Adams) Thuestad sodium chloride 0.65 % 2 Mott (AYR, OCEAN) 2 Mott EACH NOSTRIL PRN Zuhair Wick apixaban 2.5 [...] (PROTONIX) 40 mg ORAL BID Raymond (Gorge) lCaire 40 mg at 02/04/18 0835 bacitracin 1 [...] AF, DESENEX) 1 application TOPICAL BID Gloria Montana 1 application at 02/04/18 0844 OBJECTIVE PHYSICAL [...] already anti-coagulated. Disposition: Home and Home with [facility] Plan of care discussed with: Patient SIGNATURE: Radha Edmonds MD DATE: February 04, 2018 TIME: 3:00 PM Janet Pineda, RN, RN 02/04/2018 8:26 PM Signed Nursing Progress Note Patient Name: Luz Baca Patient Location: [facility] [place]0262/[id number] Daily Note: 1999 Patient called with c/o SOB. Patient sitting at edge of bed. States is often short of breath. PRN breathing treatment ordered per DEC. Will continue to monitor. 2014 Patient reports eating 100% of dinner tray. Per [address] Nair, will give 5 U humalog and continue to monitor. This note was completed by: Janet Pineda, RN AKUA MULLER, PLANT PATHOLOGIST 02/05/2018 8:29 AM Signed MEDICATION RECONCILIATION Patient Name:Josephine Baca : 1940 Reconciliation: Yes All PSYCHOLOGICAL OPERATIONS medications addressed by LIP Additional comments: N/A [...] Pentazocine - Pioglitazone Unknown - Propoxyphene Current PSYCHOLOGICAL OPERATIONS Medications: Prior to Admission medications as of [...] Unknown at Unknown time Yes AKUA MULLER, PLANT PATHOLOGIST February 05, 2018 8:28 AM Shruti Nair [...] Diagnosis Date - Arthritis - Atrial fibrillation ([facility]) - CAD (coronary artery disease) stents x9, defibrillator, CABG. Seeing Dr. Cardona - Cardiac defibrillator in place - Cardiomegaly - Carotid artery disease ([facility]) left - Chronic kidney disease (CKD) stage G3b/A2, moderately decreased glomerular filtration rate (GFR) between 30-44 mL/min/1.73 square meter and albuminuria creatinine ratio between 30-299 mg/g Dr. Martin - COPD (chronic obstructive pulmonary disease) ([facility]) Dr. Cruz - Depression - Diabetes ([facility]) - Diabetic neuropathy ([facility]) - Edema - GERD (gastroesophageal reflux disease) - Gout with hyperuricemia - HH (hiatus hernia) - HOCM (hypertrophic obstructive cardiomyopathy) ([facility]) S/P Septal Myectomy in 2003. Now with LVEF 50% and mod/severe pulm HTN. - HTN (hypertension) - Hyperlipidemia - Morbid obesity with BMI of 40.0-44.9, adult ([facility]) - Sleep apnea 2011 not on CPAP, unable to tolerate mask 02/2017 - SVT (supraventricular tachycardia) ([facility]) NSVT and questionable VT in 2003 post [...] Adams) Thuestad sodium chloride 0.65 % 2 Mott (AYR, OCEAN) 2 Mott EACH NOSTRIL PRN Zuhair Wick apixaban 2.5 mg tab(s) (ELIQUIS) 2.5 mg ORAL BID Radha Adams) Thuestad 2.5 mg at 02/04/182034 gabapentin 200 mg cap(s) (NEURONTIN) 200 mg ORAL BID Malena A Argekar 200 mg at 02/04/18 203 ondansetron orally disintegrating 4 mg tab(s) (ZOFRAN [...] BID Raymond (Pa) Claire 40 mg at 02/04/182034 bacitracin 1 [...] DESENEX) 1 application TOPICAL BID Gloria Ebonie Madhupetemalcolmi 1 application at 02/04/182040 CURRENT ALLERGIES: Allergies [...] 74 - 99 mg/dL Final Comment: Meter ID:[id number] SIGNATURE: Shruti Nair MD DATE: February 05, 2018 Radha Edmonds MD 02/06/2018 1:10 AM Signed HOSPITAL MEDICINE PROGRESS NOTE Name: Luz Baca SERVICE DATE: 02/05/2018 SERVICE TIME: 10:29 AM LOCATION / ROOM: [facility]-0262/[id number] Hospital Medicine/Primary Attending: Rahda Edmonds MD NIGHT COVERAGE BETWEEN 5.30P-7.30A Page [phone] ASSESSMENT AND PLAN Chest pain in adult [...] 10 mg RECTAL DAILY PRN Radha Adams) Thalissatakellee sodium chloride 0.65 % 2 Mott (AYR, OCEAN) 2 Mott EACH NOSTRIL PRN Zuhair Wick apixaban 2.5 mg tab(s) (ELIQUIS) 2.5 mg ORAL BID Radha Adams) Thuestad 2.5 mg at 02/04/182034 gabapentin 200 mg cap(s) (NEURONTIN) 200 mg ORAL BID Malena A Argekar 200 mg at 02/04/18 203 ondansetron orally disintegrating 4 mg tab(s) (ZOFRAN [...] BID Gloria Ebonie Lucrecia 1 application at 02/04/182040 OBJECTIVE PHYSICAL EXAM: [...] already anti-coagulated. Disposition: Home and Home with [facility] Plan of care discussed with: Patient [...] DAILY PRN sodium chloride 0.65 % 2 Mott (AYR, OCEAN) 2 Mott EACH NOSTRIL PRN apixaban 2.5 mg tab(s) [...] (congestive heart failure) (HCC) (12/10/2017) Atrial fibrillation ([facility]) (09/23/2010) Pacemaker () CAD (coronary artery disease) () Uncontrolled type 2 diabetes mellitus with stage 3 chronic kidney disease, with long-term current use of insulin ([facility]) (09/23/2004) Essential hypertension () Sleep apnea () [...] fair to good. SIGNATURE: Mauro Ramírez MD [facility] PATIENT NAME: Luz Baca DATE: February 05, 2018 TIME: 1:19 PM Cell phone #: [phone] Jordi Cevallos MD 02/05/2018 1:29 PM Signed [...] 3: baseline creatinine is mid 1 range. [place] urine with no significant proteinuria PLAN: 1. [...] SERVICE TIME: 4:09 PM LOCATION / ROOM: [place] [id number] [facility] Medicine/Primary Attending: Radha Edmonds MD NIGHT COVERAGE BETWEEN 5.30P-7.30A Page [phone] ASSESSMENT AND PLAN Chest pain in adult [...] 10 mg RECTAL DAILY PRN Radha Adams) Vitalytakellee sodium chloride 0.65 % 2 Mott (AYR, OCEAN) 2 Mott EACH NOSTRIL PRN Zuhair Wick apixaban 2.5 [...] AF, DESENEX) 1 application TOPICAL BID Gloria Montana 1 application at 02/05/18 1217 OBJECTIVE PHYSICAL [...] already anti-coagulated. Disposition: Home vs Home with [facility] Plan of care discussed with: Patient, rN SIGNATURE: Radha Edmonds MD DATE: February 05, 2018 TIME: 4:09 PM Janet Pineda RN, RN 02/06/2018 12:09 AM Signed Nursing Progress Note Patient Name: Luz Baca Patient Location: [facility]0262/[id number] Daily Note: 2300 Made hospitalist aware of [...] 3: baseline creatinine is mid 1 range. [place] urine with no significant proteinuria ? PLAN: [...] DAILY PRN sodium chloride 0.65 % 2 Mott (AYR, OCEAN) 2 Mott EACH NOSTRIL PRN apixaban 2.5 mg tab(s) [...] fair to good. SIGNATURE: Mauro Ramírez MD [facility] PATIENT NAME: Luz Baca DATE: February 06, 2018 TIME: 12:41 PM Cell phone #: [phone] Radha Edmonds MD 02/07/2018 5:55 AM [facility] MEDICINE PROGRESS NOTE Name: Luz Baca SERVICE DATE: 02/06/2018 SERVICE TIME: 3:39 PM LOCATION / ROOM: [facility]0262/[id number] Correction of time of service Radha Edmonds MD February 07, 2018 5:55 AM Hospital Medicine/Primary Attending: Radha Edmonds MD NIGHT COVERAGE BETWEEN 5.30P-7.30A Page [phone] ASSESSMENT AND PLAN Chest pain in adult [...] Jordi Cevallos Last Rate: 1 mL/hr at 02/07/18 0317 10 mg/hr at 02/07/187 amiodarone 400 mg tab(s) (PACERONE) 400 mg [...] suppository (DULCOLAX) 10 mg RECTAL DAILY PRN Klickitatebonie OsheaMd) Thuestad sodium chloride 0.65 % 2 Mott (AYR, OCEAN) 2 Mott EACH NOSTRIL PRN Zuhair Wick apixaban 2.5 mg tab(s) (ELIQUIS) 2.5 mg ORAL BID Radha Adams) Thuestad 2.5 mg at 02/06/182004 gabapentin 200 mg cap(s) (NEURONTIN) 200 mg ORAL BID Malena Ebonie Argekar 200 mg at 02/06/182004 ondansetron orally [...] H Raymond Nayak) Claire 5 mL at 02/06/18 0851 dextrose 40 % 15 g 15 g ORAL PRN Raymond (Gorge) Claire Or glucagon 1 mg injection (GLUCAGEN) 1 mg INTRAMUSCULAR PRN Raymond (Gorge) Claire Or dextrose 50% in water 25 mL syringe 12.5 g INTRAVENOUS PRN Raymond (Gorge) Claire miconazole 2 % 1 application topical powder (LOTRIMIN AF, DESENEX) 1 application TOPICAL BID Gloria Montana 1 application at 02/06/182008 OBJECTIVE PHYSICAL EXAM: [...] Patient is already anti-coagulated. Disposition: Home with [facility] Plan of care discussed with: Patient [...] 3: baseline creatinine is mid 1 range. [place] urine with no significant proteinuria ?? PLAN: [...] February 07, 2018 TIME: 7:[address], NEY 02/07/2018 11:00 AM Signed NUTRITION [...] min 1 unit SIGNATURE: Violet Valente RD, NEY PATIENT NAME: Luz Baca DATE: February 07, 2018 TIME: 10:57 AM PAGER: Russell Pedersen MD 02/07/2018 12:38 PM Signed INTERNAL MEDICINE PROGRESS NOTE SERVICE DATE: 02/07/2018 SERVICE TIME: 1233 ADMITTING PHYSICIAN: Gloria Montana Subjective CHIEF COMPLAINT: sob Current Facility-Administered Medications: [...] DAILY PRN sodium chloride 0.65 % 2 Mott (AYR, OCEAN) 2 Mott EACH NOSTRIL PRN apixaban 2.5 mg tab(s) [...] Temp Temp src Pulse Resp SpO2 Weight 04/23/18 1135 106/57 (!) 35.7 ?C (96.2 ?F) [...] No resolved hospital problems. * SIGNATURE: Russell Pedersen MD PATIENT NAME: Luz Baca DATE: February 07, 2018 TIME: 12:33 PM PAGER/CONTACT #: [phone] Vanessa Gonzalez, RN, RN 02/07/2018 2:11 PM [...] Pain in Adult Attendees Present at Rounds: Fire Prevention Forester: Vanessa Family: daughter Patient: Luz Baca Staff [...] for Changes to Baseline Status Cardiac Goals/Outcomes: VICE PRESIDENT PROCESS, Cardiac Enzymes, K, Mg, Hgb/Hct Levels Within [...] to Baseline Status (Unexplained Decrease in IFMS Score);[place] Safety Measures;Pressure Ulcer Prevention Mobility Patient/Family Goals: [...] February 07, 2018 TIME: 2:09 PM CSN: [id number] Sohail Hernandez RN, RN 02/07/2018 8:13 PM Signed Nursing Progress Note Patient Name: Luz Baca Patient Location: [place] [id number] Daily Note:02/07/[address] Ramírez, orders to hold tonight's dose of Amiodarone. Order to modify Amiodarone to 1x/day, 200 mg. This note was completed by: ALLYSON White, RN, RN 02/07/2018 10:42 PM Addendum Nursing Progress Note Patient Name: Luz Baca Patient Location: NE-2N-0262/[id number] Daily Note:02/07/182049 Paged hospitalist regarding pt reporting pain and temp 2110 Re-paged hospitalist 2200 Orders for Kpad and prn pain meds 224 Paged hospitalist for pt requesting something to help her sleep This note was completed by: Sohail Hernandez RN Previous Version Russell Pedersen MD 02/08/2018 2:45 PM Signed INTERNAL MEDICINE PROGRESS NOTE SERVICE DATE: 02/08/2018 SERVICE TIME: 1330 ADMITTING PHYSICIAN: Gloria Montana Subjective CHIEF COMPLAINT: sob Current Facility-Administered Medications: [...] DAILY PRN sodium chloride 0.65 % 2 Mott (AYR, OCEAN) 2 Mott EACH NOSTRIL PRN apixaban 2.5 mg tab(s) [...] No resolved hospital problems. * SIGNATURE: Russell Pedersen MD PATIENT NAME: Luz Baca DATE: February 08, 2018 TIME: 1:27 PM PAGER/CONTACT #: [phone] Jordi Cevallos MD 02/08/2018 4:00 PM Signed [...] 3: baseline creatinine is mid 1 range. [place] urine with no significant proteinuria ?? PLAN: [...] each meal and at bedtime. Call Endo deputy felony clerk if blood sugar is less than 80 or more than 210. We will follow. Som Feliciano MD February 08, 2018 Sohail Hernandez, RN, RN 02/09/2018 6:09 AM Addendum Nursing Progress Note Patient Name: Luz Baca Patient Location: [facility] [id number] Daily Note:02/08/182047 Spoke with Dr. Feliciano regarding [...] worsening pulmonary situation, might need to consider PRESIDENT & FOUNDER (patient would only want this as a [...] Note Patient Name: Luz Baca Patient Location: [place] [id number] Daily Note: Pt AANDO x 3, calm and cooperative. Pt sitting in bedside chair. 0900 Pt ate breakfast and medication administered. O2 at 3L/min NC with pulse ox 96% and reduced to 2L/min NC. This note was completed by: Reanna Davalos, RN Donnell Cruz MD 02/10/2018 7:59 AM Addendum [facility] [place] Consultation Note, 02/09/2018: Introduction: The patient is seen in consultation today for evaluation of COPD, pulmonary hypertension. This consultation is requested by Russell Pedersen MD. A copy of this encounter will be made available as a report via [employer] electronic medical record to her Primary Care [...] home. This is the 4th admission to [facility] in 2018. PAST MEDICAL HISTORY Diagnosis Date [...] Martin - COPD (chronic obstructive pulmonary disease) ([facility]) Dr. Cruz - Depression - Diabetes (HCC) - Diabetic neuropathy (HCC) - Edema - GERD (gastroesophageal reflux disease) - Gout with hyperuricemia - HH (hiatus hernia) - HOCM (hypertrophic obstructive cardiomyopathy) ([facility]) S/P Septal Myectomy in 2003. Now with LVEF 50% and mod/severe pulm HTN. - HTN (hypertension) - Hyperlipidemia - Morbid obesity with BMI of 40.0-44.9, adult ([facility]) - Sleep apnea 2011 not on CPAP, unable to tolerate mask 02/2017 - SVT (supraventricular tachycardia) ([facility]) NSVT and questionable VT in 2003 post [...] age 89, HTN - Heart Failure Mother PA - Cancer Father age 71, lung cancer [...] ?0.93 ?37 FEV1/FVC ? % ?0.75 ?0.80 MYC168% ? ?Sec ? ? ? 6.50 Diffusing [...] The mitral valve leaflets are structurally normal. Beaver mitral valve. There is trivial (trivial - 1+) mitral valve regurgitation. TRICUSPID VALVE Beaver tricuspid valve. There is moderate (2+ - [...] to Bariatric Surgery program. Donnell Cruz MD, [facility] Medical Office [place] [address] P: [phone] F: [phone] Previous Version Shruti Nair MD 02/09/2018 12:05 [...] place - Cardiomegaly - Carotid artery disease ([facility]) left - Chronic kidney disease (CKD) stage G3b/A2, moderately decreased glomerular filtration rate (GFR) between 30-44 mL/min/1.73 square meter and albuminuria creatinine ratio between 30-299 mg/g Dr. Martin - COPD (chronic obstructive pulmonary disease) ([facility]) Dr. Cruz - Depression - Diabetes ([facility]) - Diabetic neuropathy ([facility]) - Edema - GERD (gastroesophageal reflux disease) - Gout with hyperuricemia - HH (hiatus hernia) - HOCM (hypertrophic obstructive cardiomyopathy) ([facility]) S/P Septal Myectomy in 2003. Now with LVEF 50% and mod/severe pulm HTN. - HTN (hypertension) - Hyperlipidemia - Morbid obesity with BMI of 40.0-44.9, adult ([facility]) - Sleep apnea 2011 not on CPAP, unable to tolerate mask 02/2017 - SVT (supraventricular tachycardia) ([facility]) NSVT and questionable VT in 2003 post [...] tab(s) 3 mg ORAL AT BEDTIME Caroline (Pickling Tank Operator) Garcia 3 mg at 02/08/182103 simvastatin 20 [...] mg cap(s) (COLACE) 100 mg ORAL BID [place] Ebonie Adams) Thuestad 100 mg at 02/08/18 2104 polyethylene glycol 3350 17 g packet (MIRALAX, GLYCOLAX) 17 g ORAL DAILY Ardha Ebonie Adams) Thuestad 17 g at 02/02/18 1046 bisacodyl 10 mg suppository (DULCOLAX) 10 mg RECTAL DAILY PRN Radha Adams) Thuestad sodium chloride 0.65 % 2 Mott (AYR, OCEAN) 2 Mott EACH NOSTRIL PRN Zuhair Wick apixaban 2.5 mg tab(s) (ELIQUIS) 2.5 mg ORAL BID [place] Ebonie Adams) Thuestad 2.5 mg at 02/09/18 0858 gabapentin 200 mg cap(s) (NEURONTIN) 200 mg ORAL BID Malena A Argekar 200 mg at 02/09/18 0857 ondansetron orally disintegrating 4 mg tab(s) (ZOFRAN ODT) 4 mg ORAL q 6 H PRN Zuhair Wick 4 mg at 02/04/18 0835 acetaminophen 650 mg tab(s) (TYLENOL) 650 mg ORAL q 6 H PRN Shammeli Khubber 650 mg at 02/07/18 1516 ipratropium-albuterol [...] AF, DESENEX) 1 application TOPICAL BID Gloria Montana 1 application at 02/09/18 1049 CURRENT ALLERGIES: [...] 74 - 99 mg/dL Final Comment: Meter ID:[id number] SIGNATURE: Shruti Nair MD DATE: February 09, 2018 Vanessa Gonzalez RN, RN 02/09/2018 12:21 PM Signed CARE MANAGEMENT PROGRESS NOTE SERVICE DATE: 02/09/2018 SERVICE TIME: 12:20 PM LOS: 12 days EMR reviewed. Spoke to Dr Pedersen. NEED PT/OT notes, Possible SNF needs. POSSIBLE WEEKEND DC PER MD. High Risk PCC Remi Rehn On 3L n/c today Chronic 2.5 LO2 at home. From home with dtr. [facility] NEED F2F, Dtr will transport. SIGNATURE: Vanessa Gonzalez RN PATIENT NAME: Luz Baca DATE: February 09, 2018 TIME: 12:20 PM PAGER/CONTACT #: [phone] Russell Pedersen MD 02/09/2018 3:41 PM Signed INTERNAL MEDICINE PROGRESS NOTE SERVICE DATE: 02/09/2018 SERVICE TIME: 1530 ADMITTING PHYSICIAN: Gloria Montana Subjective CHIEF COMPLAINT: sob Current Facility-Administered Medications: [...] DAILY PRN sodium chloride 0.65 % 2 Mott (AYR, OCEAN) 2 Mott EACH NOSTRIL PRN apixaban 2.5 mg tab(s) [...] No resolved hospital problems. * SIGNATURE: Russell Pedersen MD PATIENT NAME: Luz Baca DATE: February 09, 2018 TIME: 3:33 PM PAGER/CONTACT #: [phone] Ella Esquivel RN, RN 02/10/2018 10:06 AM Addendum Event(s) / Intervention Note: The patient was observed having the following problems: elevated K of 5.5. Other labs also out of normal range. The time of the event occurred at: 0725. The following intervention(s) were initiated: no further intervention at this time, will continue to observe and check with patient. and Dr. Pedersen/Hospitalist notified via pager [phone]. After the initiated interventions, the following observation(s) were made: patient has no complaints. and nothing further noted. Will continue to observe and check with patient.. 1000: Spoke with MD Pedersen, she is fine with pt's K being 5.5, no correction needed. Also discussed other labs out of normal range. Ella Esquivel Previous Version LETICIA Cain/Elver 02/10/2018 11:01 AM Signed OCCUPATIONAL THERAPY MISSED VISIT SERVICE DATE: 02/10/2018 SERVICE TIME: 1100 to 1100 ROOM: [id number] Attempted Evaluation. Patient not seen due to Declined (RN exiting room, pt requesting to hold therapy at this time.) Will attempt as able. SIGNATURE: LETICIA Cain/Elver PATIENT NAME: Luz Baca DATE: February 10, 2018 TIME: 11:01 AM PAGER/CONTACT #:[phone] LETICIA Cain/Elver 02/10/2018 1:36 PM Signed Occupational Therapy Evaluation SERVICE DATE: 02/10/2018 SERVICE TIME: 1140 to 1230 ROOM: [id number] Recommended Discharge Disposition: Home OT Recommended Discharge [...] Functions and Awareness Interventions Provided: Evaluation;Therapeutic Activity (90921);Self Skilled Nursing Management (84219) $ Evaluation-Low (89411) Billed Units: 1 unit Therapeutic Activity (86855) Treatment Minutes: 15 1 unit Skilled Intervention(s): [...] to chair providing contact guard assist. Self Skilled Nursing Management (45018) Treatment Minutes: 25 2 units Skilled Intervention(s): [...] elevated K of 5.5: per chart MD Pedersen, she is fine with pt's K being [...] February 10, 2018 TIME: 1:12 PM PAGER: [phone] Russell Pedersen MD 02/10/2018 2:39 PM Addendum INTERNAL MEDICINE PROGRESS NOTE SERVICE DATE: 02/10/2018 SERVICE TIME: 1430 ADMITTING PHYSICIAN: Gloria Montana Subjective CHIEF COMPLAINT: Chest pain Current Facility-Administered [...] DAILY PRN sodium chloride 0.65 % 2 Mott (AYR, OCEAN) 2 Mott EACH NOSTRIL PRN apixaban 2.5 mg tab(s) [...] No resolved hospital problems. * SIGNATURE: Russell Pedersen MD PATIENT NAME: Luz Baca DATE: February 10, 2018 TIME: 2:26 PM PAGER/CONTACT #: [phone] Previous Version Judit Nolasco, PT 02/10/2018 2:42 PM Signed PHYSICAL THERAPY MISSED VISIT SERVICE DATE: 02/10/2018 SERVICE TIME: 1035 to 1039 ROOM: [place] [address] Attempted Evaluation. Patient not seen due to [...] Donnell Cruz MD 02/11/2018 9:58 AM Signed [facility] [place], 02/10/2018: I have reviewed the interval history [...] 1. Dialysis and/or diuretic Rx, deferred to Employee Relations Director and Hospitalist, as I/O record, weight gain [...] also communicated this Impression directly to Dr. Pedersen as well. ? Donnell Cruz MD, [facility] Medical Office Building [place] [address] P: [phone] F: [phone] Malena Bray MD 02/10/2018 4:30 PM Signed [...] 02/10/2018 SERVICE TIME: 1415 to 1425 ROOM: [place] [address] Attempted Evaluation. Patient not seen due to [...] 6. Started allopurinol 100mg daily ? Russell Pedersen MD 02/11/2018 12:59 PM Signed INTERNAL MEDICINE PROGRESS NOTE SERVICE DATE: 02/11/2018 SERVICE TIME: 1300 ADMITTING PHYSICIAN: Gloria Montana Subjective CHIEF COMPLAINT: sob Current Facility-Administered Medications: [...] DAILY PRN sodium chloride 0.65 % 2 Mott (AYR, OCEAN) 2 Mott EACH NOSTRIL PRN apixaban 2.5 mg tab(s) [...] No resolved hospital problems. * SIGNATURE: Russell Pedersen MD PATIENT NAME: Luz Baca DATE: February 11, 2018 TIME: 12:53 PM PAGER/CONTACT #: [phone] Dianna Melton RN, RN 02/11/2018 6:42 PM Signed Nursing Progress Note Patient Name: Luz Baca Patient Location: [facility] [id number] Daily Note:02/11 0700-Bedside report given. 0834-Patient is complaining of pain, medication given 0835- Dr Pedersen paged. To hold BP medications. 0839-Authorization to hold from Dr Pedersen 0934- Recheck pain. Down to 12/25. Patient resting in bed 1100-Patient would like information on dialysis, provided information 1200- Assessment done patient is more depressed that previous days, Education on the benefits of dialysis. 1400-Patient complaining of 04/26pain. Advised available to take medication in 40min. 1448-Gave pain medication. Still reporting 1735-Pagged Dr Pedersen, realized she was gone for the day [...] 11, 2018 TIME: 3:36 PM PAGER/CONTACT #: [phone] Donnell Cruz MD 02/11/2018 5:26 PM Addendum [facility] [place], 02/11/2018: My partner Krishan Camp Rai, MD will be providing followup Pulmonary consultative coverage through Wednesday02/14/2018 AM, if needed. Donnell Cruz MD, [facility] [place] Previous Version Vaibhav Mcmahan, PT 02/12/2018 11:43 AM Signed Physical Therapy Evaluation SERVICE DATE: 02/11/2018 SERVICE TIME: 1510 to 1540 ROOM: [place] [address] Recommended Discharge Disposition: Home PT Recommended Discharge [...] in 1 story accessible home. Recommending continued [facility] PT to assist in improving patient's [...] symptoms and signs-other Interventions Provided: Evaluation;Therapeutic Exercise (06510);Therapeutic Activity (51606);Gait Training (55712) $ Evaluation-Low (40886) Billed Units: 1 unit Therapeutic Exercise (44462) Treatment Minutes: 8 1 unit Skilled Intervention(s): [...] due to edema AND weakness. Therapeutic Activity (49255) Treatment Minutes: 6 0 units Skilled Intervention(s): [...] for safety in hospital setting Gait Training (64273) Treatment Minutes: 10 1 unit Skilled Intervention(s): [...] Martin - COPD (chronic obstructive pulmonary disease) ([facility]) Dr. Cruz - Depression - Diabetes ([facility]) - Diabetic neuropathy ([facility]) - Edema - GERD (gastroesophageal reflux disease) - Gout with hyperuricemia - HH (hiatus hernia) - HOCM (hypertrophic obstructive cardiomyopathy) ([facility]) S/P Septal Myectomy in 2003. Now with LVEF 50% and mod/severe pulm HTN. - HTN (hypertension) - Hyperlipidemia - Morbid obesity with BMI of 40.0-44.9, adult ([facility]) - Sleep apnea 2011 not on CPAP, unable to tolerate mask 02/2017 - SVT (supraventricular tachycardia) ([facility]) NSVT and questionable VT in 2003 post [...] age 89, HTN - Heart Failure Mother PA - Cancer Father age 71, lung cancer [...] DAILY PRN sodium chloride 0.65 % 2 Mott (AYR, OCEAN) 2 Mott EACH NOSTRIL PRN apixaban 2.5 mg tab(s) [...] February 11, 2018 TIME: 8:13 PM PAGER: [phone] Patience Newton, GENE 02/12/2018 5:59 AM Signed Pt refused cpap at this time. No distress noted DOWNTIME NOTE 02/12/2018 4:27 AM Signed Epic Scheduled Downtime: 02/11/2018 11:34:32 PM to 02/12/2018 4:17:42 AM Russell Pedersen MD 02/12/2018 10:25 AM Signed INTERNAL MEDICINE PROGRESS NOTE SERVICE DATE: 02/12/2018 SERVICE TIME: 1015 ADMITTING PHYSICIAN: Gloria Montana Subjective CHIEF COMPLAINT: Chest pain Current Facility-Administered [...] DAILY PRN sodium chloride 0.65 % 2 Mott (AYR, OCEAN) 2 Mott EACH NOSTRIL PRN apixaban 2.5 mg tab(s) [...] VTE Prophylaxis: VTE prophylaxis appropriate SIGNATURE: Russell Pedersen MD PATIENT NAME: Luz Baca DATE: February 12, 2018 TIME: 10:16 AM PAGER/CONTACT #: [phone] Dina Bowman MD, MD 02/12/2018 10:46 AM [...] DAILY PRN sodium chloride 0.65 % 2 Mott (AYR, OCEAN) 2 Mott EACH NOSTRIL PRN apixaban 2.5 mg tab(s) [...] 46.0 % 35.1 (L) Dina Bowman MD [facility] Endocrinology and Metabolism [place] [facility] February 12, 2018 10:41 AM Malena Bray [...] 100mg daily 7. Outpatient dialysis placement at [facility] 3x/week under my service ? Catarina Jack RN, RN 02/13/2018 4:41 AM Signed Nursing Progress Note Patient Name: Luz Baca Patient Location: [place] [id number] Daily Note: 0330: Patients goodson fell out, [...] DAILY PRN sodium chloride 0.65 % 2 Mott (AYR, OCEAN) 2 Mott EACH NOSTRIL PRN apixaban 2.5 mg tab(s) [...] CBC, Coags, BMP, Mg, Phos Recent Labs 04/2962002/12/18 0016 02/11/18 0513 WBC 7.58 7.76 7.01 HB 11.4* 11.2* 10.6* HCT 36.6 35.1* 34.0* PLT 205 216 209 NA 135* 127* 131* K 5.1 5.6* 5.2* CHLOR 94* 89* 93* CO2 26 23 21* BUN 125* 114* 109* CREAT 3.30* 3.41* 3.32* GLUC 89 125* 146* CA 8.9 8.4* 8.5 MG -- 2.8* -- Liver Function, Amylase, AND Lipase Recent Labs 02/13/1862002/12/186 02/11/18 0513 TPROT 6.8 6.9 6.5 ALB [...] 13, 2018 TIME: 12:17 PM PAGER/CONTACT #: [phone] I have personally interviewed and examined the [...] any, are noted. Krishan Irwin Rai, MD, [facility] Staff, Pulmonary and Critical Care Medicine [facility] [place] Pager #[phone] Previous Version Malena Bray MD 02/13/2018 2:43 [...] 100mg daily 7. Outpatient dialysis placement at [facility] 3x/week under my service on discharge ? Russell Pedersen MD 02/13/2018 3:40 PM Signed INTERNAL MEDICINE PROGRESS NOTE SERVICE DATE: 02/13/2018 SERVICE TIME: 1535 ADMITTING PHYSICIAN: Gloria Montana Subjective CHIEF COMPLAINT: sob Current Facility-Administered Medications: [...] DAILY PRN sodium chloride 0.65 % 2 Mott (AYR, OCEAN) 2 Mott EACH NOSTRIL PRN gabapentin 200 mg cap(s) [...] fibrillation (HCC) POA: Yes Assessment AND Plan: stable, eliquis [...] disease (HCC) POA: Yes Assessment AND Plan: baseline Cr 1.65, Cr increased to 3.3 with attempted diuresis. Plan for tunneled cath on and then start HD Medication and Non-Pharmacologic VTE Prophylaxis/Anticoagulants 01/27/182129 vte non-pharmacologic prophylaxis - none indicated 01/27/182129 vte current anticoag therapy VTE Prophylaxis: VTE prophylaxis appropriate SIGNATURE: Russell Pedersen MD PATIENT NAME: Luz Baca DATE: February 13, 2018 TIME: 3:33 PM PAGER/CONTACT #: [phone] Malena Bray MD 02/14/2018 7:33 AM Signed [...] 100mg daily 7. Outpatient dialysis placement at [facility] 3x/week under my service on discharge ? Vanessa Gonzalez RN, RN 02/14/2018 8:46 AM Signed CARE MANAGEMENT PROGRESS NOTE SERVICE DATE: 02/14/2018 SERVICE TIME: 8:42 AM LOS: 17 days EMR reviewed. Spoke to Raymond ext [phone] about this patient. Need Hep Panel Lab, Need Tunnel Cath, Need First Treatment. Referral sent as Ordered [facility] , with plan for a Wednesday dc . SIGNATURE: Vanessa Gonzalez RN PATIENT NAME: Luz Baca DATE: February 14, 2018 TIME: 8:42 AM PAGER/CONTACT #: [phone] Krishan Irwin Rai, MD 02/14/2018 4:44 PM [...] data. Krishan Irwin Rai, MD Staff, Respiratory [place] [facility] Pager #[phone] SUBJECTIVE CHIEF COMPLAINT: Dyspnea INTERVAL HPI:Luz Baca [...] DAILY PRN sodium chloride 0.65 % 2 Mott (AYR, OCEAN) 2 Mott EACH NOSTRIL PRN gabapentin 200 mg cap(s) [...] 14, 2018 TIME: 10:05 AM PAGER/CONTACT #: [phone] Micha Moreno MD, 02/14/2018 3:22 PM Edited [facility] MEDICINE PROGRESS NOTE NIGHT AND WEEKEND COVERAGE: Nights: Please contact pager [phone]. Reason for Admission/Observation: Elevated high-sensitivity troponin elevation [...] before resolving. Consultants: Dr. Asa Nair Disposition: [facility] SUBJECTIVE Interval HPI:No chest pain or [...] was reviewed. Pulse ox Most recent Xrays/CT Abrasive Mixer Previous Version Megan Buck, EL 02/14/2018 12:34 PM Signed NUTRITION THERAPY PROGRESS [...] 840 342 120 940 210 Output (ml) 665 209 6826 1000 0 Net (ml) 239 -333 -1280 -60 210 MNT Billing Type: Re-assess/15 min 1 unit SIGNATURE: Megan Buck RD PATIENT NAME: Luz Baca DATE: February 14, 2018 TIME: 12:31 PM Micha Moreno MD, MD 02/14/2018 3:23 PM Signed SERVICE DATE: 02/14/2018 SERVICE TIME: 3:22 PM HOSPITAL MEDICINE PROGRESS NOTE NIGHT AND WEEKEND COVERAGE: Nights: Please contact pager [phone]. Reason for Admission/Observation: Elevated high-sensitivity troponin elevation [...] before resolving. Consultants: Dr. Asa Nair Disposition: [facility] SUBJECTIVE Interval HPI:No chest pain or [...] was reviewed. Pulse ox Most recent Xrays/CT Abrasive Mixer CARE COORDINATION: No Patient Care Coordination Note on file. 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, with long-term current use of insulin ([facility]) 09/23/2004 - Present I Sleep apnea Unknown [...] with: Patient, Case Mangement and RN SIGNATURE: Micah Moreno MD PATIENT NAME: Luz Baca DATE: February 14, 2018 TIME: 3:22 PM PAGER/CONTACT #: Jesús Ibarra/OT, Student 02/14/2018 4:34 PM Cosign Needed Occupational Therapy Treatment SERVICE DATE: 02/14/2018 SERVICE TIME: 1557 to 1608 ROOM: [place] [address] Recommended Discharge Disposition: Home OT Recommended Discharge [...] Functions and Awareness Interventions Provided: Therapeutic Exercise (33432);Therapeutic Activity (84600) Therapeutic Exercise (56616) Treatment Minutes: 9 1 unit Skilled Intervention(s): [...] by therapist for safe technique. Therapeutic Activity (02659) Treatment Minutes: 2 0 units Skilled Intervention(s): [...] (02/10/18 1140) Self Care Goal Status (G8988): (02/10/18 1140) Based on clinical assessment and [...] February 14, 2018 TIME: 4:17 PM PAGER: [phone] Michael Hogan DO 02/14/2018 6:22 PM Signed [...] DAILY PRN sodium chloride 0.65 % 2 Mott (AYR, OCEAN) 2 Mott EACH NOSTRIL PRN gabapentin 200 mg cap(s) [...] 100mg daily 7. Outpatient dialysis placement at [facility] 3x/week under my service on discharge ? Vanessa Gonzalez RN, RN 02/15/2018 11:10 AM Signed CARE MANAGEMENT PROGRESS NOTE SERVICE DATE: 02/15/2018 SERVICE TIME: 11:06 AM LOS: 18 days EMR reviewed. NEW DIALYSIS . Chose [facility], NEED F2F. Labs are Still in process Need Hep Panel Lab. Need Tunnel Cath, Need First Treatment. Referral sent as Ordered [facility], waiting on confirmation letter , with plan for a Wednesday dc . High Risk PCC Remi Olveran. On 3L n/c today Chronic 2.5 LO2 at home From home with dtr. Dtr will transport. SIGNATURE: Vanessa Gonzalez RN PATIENT NAME: Luz Baca DATE: February 15, 2018 TIME: 11:06 AM PAGER/CONTACT #: [phone] CBC Collected: 01/26/2018 Status: F Source: [place] 12:44 PM [facility] REPOSITORY TYPE CODE TESTS RESULT OUT [...] By: #### CBC, CMP, MG1, NTBNP #### [facility] [address] [address] COMP METABOLIC PANEL Collected: 01/26/2018 Status: F Source: [place] 12:44 PM [facility] REPOSITORY TYPE CODE TESTS RESULT OUT OF REFERENCE UNITS RANGE LAB TP 6.3-8.0 g/dL Protein, Total 6.3 LAB ALB 3.9-4.9 g/dL Low Albumin 3.1 LAB CA 8.5-10.2 mg/dL Calcium, Total 8.6 LAB TBIL 0.2-1.3 mg/dL Bilirubin, Total 0.4 LAB ALKP 32-117 U/L Alkaline Phosphatase 97 LAB AST 13-35 U/L AST 22 LAB GLU 74-99 mg/dL Glucose High 390 Result Comment: The [place] Diabetes Association (ADA) provides guidance for cutoff [...] Standards of Medical Care in Diabetes 2016, [place] [employer] Association. Diabetes Care. 2016.39(Suppl 1). LAB [...] By: #### CBC, CMP, MG1, NTBNP #### [facility] [employer] [address], [place] [address] MAGNESIUM Collected: 01/26/2018 Status: F Source: [place] 12:44 PM [facility] REPOSITORY TYPE CODE TESTS RESULT OUT OF REFERENCE UNITS RANGE LAB MG 1.7-2.3 mg/dL High Magnesium 2.5 Performed By: #### CBC, CMP, MG1, NTBNP #### [facility] [employer] [address] [place], [place] [address] NT PRO BNP Collected: 01/26/2018 Status: F Source: [place] 12:44 PM [facility] REPOSITORY TYPE CODE TESTS RESULT OUT OF REFERENCE UNITS RANGE LAB PBNP <450 pg/mL High PRO B Natr 1630 Peptide Performed By: #### CBC, CMP, MG1, NTBNP #### [facility] [employer] [address] [place], [place] [address] HEMOGLOBIN A1C Collected: 01/26/2018 Status: F Source: [place] 12:44 PM [facility] REPOSITORY TYPE CODE TESTS RESULT OUT OF REFERENCE UNITS RANGE LAB HGBA1C 4.3-5.6 % High Hemoglobin A1c 12.0 LAB HBA0 mg/dL Est. Average Glucose 298 Result Comment: eAG: (Estimated average glucose) is a calculated value from HgbA1c and is advertising account representative of the average blood glucose level in the last 2-3 month period. Performed By: #### HBA1C #### [facility] [employer] [address] [place], [place] [address] XR CHEST 2V FRONTAL/LAT Observed: 01/26/2018 Status: F Source: [place] 12:15 PM [facility] REPOSITORY * * *Final Report* * * [...] is unremarkable. 4. Other: Bony structures unremarkable. Top Lift Cutter: SALINAS Transcribe Date/Time: Jan 27 2018 4:26P Dictated by : ELLA FRY DO This examination was interpreted and the report reviewed and electronically signed by: ELLA FRY DO on Jan 27 2018 4:30PM EST [id number] PROGRESS Observed: 01/26/2018 Status: COMPLETED Source: [place] 12:06 PM [facility] REPOSITORY HNO ID: [id number] Author: Sarahi OsheaRt) Guadalupe Martinez Service: (none) Author Type: Bomb Loader Type: Progress Notes Filed: 01/26/2018 12:15 PM [...] PM PROGRESS Observed: 01/26/2018 Status: COMPLETED Source: [place] 11:54 AM [facility] REPOSITORY HNO ID: [id number] Author: Remi Briseno) Brent Service: (none) Author [...] PCC Interventions: TC to Dr. Martin' office, receptionist clerk took message that PCP increased Lasix to 80 mg BID due to LE edema and lung sounds and he wanted PCC to let Dr. Martin know. She will give message to MD's IDANIA. Next Office Visit: Visit date not found Plan For Next Call: 01/31 Remi Kennedy RN January 26, 2018 CNOV Observed: 01/26/2018 Status: COMPLETED Source: [place] 11:00 AM [facility] REPOSITORY Office Visit (FAMPWS) LUZ BACA ([id number]) 1940 F Date Time Provider Department 01/26/18 [...] Discharge Follow up. Patient was admitted to [facility] from 01/20 to 01/23 for fluid overload [...] Diagnosis Date - Arthritis - Atrial fibrillation ([facility]) - CAD (coronary artery disease) stents x9, defibrillator, CABG. Seeing Dr. Cardona - Cardiac defibrillator in place - Cardiomegaly - Carotid artery disease ([facility]) left - CKD (chronic kidney disease), stage IV ([facility]) Dr. Martin - COPD (chronic obstructive pulmonary disease) ([facility]) Dr. Cruz - Depression - Diabetes ([facility]) - Diabetic neuropathy ([facility]) - GERD (gastroesophageal reflux disease) - Gout - HH (hiatus hernia) - HH (hiatus hernia) - HOCM (hypertrophic obstructive cardiomyopathy) ([facility]) - HOCM (hypertrophic obstructive cardiomyopathy) ([facility]) S/P Septal Myectomy in 2003. Echo 09/23/10 shows no visable GABRIEL. LVOT gradient is 8mmHg. - HTN (hypertension) - Hyperlipidemia - Morbid obesity with BMI of 40.0-44.9, adult ([facility]) - Pacemaker - Pneumonia h/o pneumonia/bronchitis - Renal insufficiency 2003 post op - Sleep apnea 2011 not on CPAP, unable to tolerate mask 02/2017 - SVT (supraventricular tachycardia) ([facility]) NSVT and questionable VT in 2003 post [...] age 89, HTN - Heart Failure Mother PA - Cancer Father age 71, lung cancer [...] unspecified vessel or lesion type, unspecified whether prairie band or transplanted heart - ICD9: 414.00, ICD10: [...] time. Jameson Kamara MD Referring Provider: JAMESON KAMARA) [[id number]] Allergies As of Date: 01/26/2018 Noted Allergy [...] Candidal intertrigo [B37.2] Atrial fibrillation, unspecified type ([facility]) [I48.91] Coronary artery disease, angina presence unspecified, unspecified vessel or lesion type, unspecified whether prairie band or transplanted heart [I25.10] Chronic obstructive pulmonary disease with acute exacerbation ([facility]) [J44.1] Uncontrolled type 2 diabetes mellitus with stage 3 chronic kidney disease, with long- term current use of insulin ([facility]) [E11.22, E11.65, N18.3, Z79.4] Hospital discharge follow-up [...] 1 TubeRfl: 1 XR CHEST 2V FRONTAL/LAT [5910497] Order #: [id number] FUTURE NT PRO BNP [SQNTBNP] Order #: [id number] FUTURE COMP METABOLIC PANEL [SQCMP] Order #: [id number] FUTURE CBC [SQCBC] Order #: [id number] FUTURE MAGNESIUM BLD [SQMG1] Order #: [id number] FUTURE nystatin (NYSTOP) powderApply 1 application to affected area three times daily.Disp: 60 gRfl: 2 POLYSOMNOGRAM (PSG)/HOME SLEEP APNEA TESTING (HSAT) [[id number]] Order #: [id number] FUTURE CONSULT TO SLEEP MEDICINE - ADULT [0003564] Order #: [id number]: 1 Prescriptions as of 01/26/2018 Sig: INSULIN [...] 01/27/18 PROGRESS Observed: 01/26/2018 Status: COMPLETED Source: [place] 10:50 AM [facility] REPOSITORY [facility] ID: [id number] Author: Jameson Adams) Koffi Service: (none) Author Type: Physician Type: Progress Notes Filed: 01/27/2018 1:04 PM Note Text: Chief Complaint Patient presents with: Hospital Follow Up: requesting nystatin powder for under breasts , burn on chin from cooking grease HPI Luz Baca is a 77 year old female who presents here today for Hospital Discharge Follow up. Patient was admitted to [facility] from 01/20 to 01/23 for fluid overload [...] - CKD (chronic kidney disease), stage IV ([facility]) Dr. Martin - COPD (chronic obstructive pulmonary disease) ([facility]) Dr. Cruz - Depression - Diabetes ([facility]) - Diabetic neuropathy (HCC) - GERD (gastroesophageal reflux disease) - Gout - HH (hiatus hernia) - HH (hiatus hernia) - HOCM (hypertrophic obstructive cardiomyopathy) ([facility]) - HOCM (hypertrophic obstructive cardiomyopathy) ([facility]) S/P Septal Myectomy in 2003. Echo 09/23/10 shows no visable GABRIEL. LVOT gradient is 8mmHg. - HTN (hypertension) - Hyperlipidemia - Morbid obesity with BMI of 40.0-44.9, adult (HCC) - Pacemaker - Pneumonia h/o pneumonia/bronchitis - Renal insufficiency 2003 post op - Sleep apnea 2011 not on CPAP, unable to tolerate mask 02/2017 - SVT (supraventricular tachycardia) ([facility]) NSVT and questionable VT in 2003 post [...] age 89, HTN - Heart Failure Mother PA - Cancer Father age 71, lung cancer [...] unspecified vessel or lesion type, unspecified whether prairie band or transplanted heart - ICD9: 414.00, ICD10: I25.10 Continue current regimen per cardiology. 9. Chronic obstructive pulmonary disease with acute exacerbation (HCC) - ICD9: 491.21, ICD10: J44.1 No signs of exacerbation today. Continue aerosols. Follow up with pulmonology. 10. 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 Martin' office, receptionist clerk took message that PCP increased Lasix to [...] Ma - Fully Assessed Reason for Visit: [employer]-In Office Visit [4385] Prescriptions as of 01/26/2018 Sig: INSULIN ASPART [...] 01/26/18 PROGRESS Observed: 01/25/2018 Status: COMPLETED Source: [place] 5:55 PM [facility] [place] REPOSITORY HNO ID: [id number] Author: Jameson Adams) Koffi Service: (none) Author Type: Physician Type: Progress Notes Filed: 01/25/2018 5:55 PM Note Text: Reviewed. Will discuss with patient at tomorrow. PROGRESS Observed: 01/25/2018 Status: COMPLETED Source: [place] 4:55 PM [facility] REPOSITORY HNO ID: [id number] Author: Remi (Rn) Brent Service: (none) Author Type: Registered Nurse Type: Progress Notes Filed: 01/25/2018 5:10 PM Note Text: TRANSITION CARE MANAGEMENT (TCM) INITIAL CONTACT Provider Action/FYI: NOT A TCM Initial contact with patient post discharge, spoke to patient. Patient identified by name and . SUMMARY: -Pt discharged from [facility] on 01/23. -Follow up appointment on 01/26. -Medication review done no. 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, with long-term current use of insulin ([facility]) GERD (gastroesophageal reflux disease) Sleep apnea Essential hypertension Class 1 obesity due to excess calories with serious comorbidity in adult Resolved Problems: Elevated troponin HOCM (hypertrophic obstructive cardiomyopathy) ([facility]) Hyponatremia Hyperkalemia Carotid artery disease ([facility]) CONCERNS: Pt just arrived home after all day Gastric Emptying Testing and is very fatigued No SOB NEW MEDICATIONS: None MEDS HELD/DISCONTINUED: None BRIEF HOSPITAL COURSE: Acute on chronic combined systolic and diastolic CHF (congestive heart failure) ([facility]) Assessment: Has diuresed well PLAN: Continue therapy as per cardiology Atrial fibrillation ([facility]) In sinus rhythm on telemetry after cardioversion yesterday. 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 Top Lift Cutter: PSCTimmy Transcribe Date/Time: Jan 25 2018 2:30P Dictated by : ZEV JACOBO MD This examination was interpreted and the report reviewed and electronically signed by: ZEV JACOBO MD on Jan 25 2018 2:32PM EST [id number] CNPTOUTREACH Observed: 01/25/2018 Status: COMPLETED Source: [place] 12:00 AM [facility] [place] REPOSITORY Patient Outreach (FAMPWS) LUZ BACA Salvador ([id number]) 1940 F Date Time Provider Department 01/25/18 REMI KENNEDYRN) NAVINPWS During your visit today, we recorded the following information about you: Remi Kennedy RN 01/25/2018 5:10 PM Signed TRANSITION CARE MANAGEMENT (TCM) INITIAL CONTACT Provider Action/FYI: NOT A TCM Initial contact with patient post discharge, spoke to patient. Patient identified by name and . SUMMARY: -Pt discharged from [facility] on 01/23. -Follow up appointment on 01/26. -Medication review done no. 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, with long-term current use of insulin ([facility]) GERD (gastroesophageal reflux disease) Sleep apnea Essential hypertension Class 1 obesity due to excess calories with serious comorbidity in adult Resolved Problems: Elevated troponin HOCM (hypertrophic obstructive cardiomyopathy) ([facility]) Hyponatremia Hyperkalemia Carotid artery disease ([facility]) CONCERNS: Pt just arrived home after all day Gastric Emptying Testing and is very fatigued No SOB NEW MEDICATIONS: None MEDS HELD/DISCONTINUED: None BRIEF HOSPITAL COURSE: Acute on chronic combined systolic and diastolic CHF (congestive heart failure) ([facility]) Assessment: Has diuresed well PLAN: Continue therapy as per cardiology Atrial fibrillation ([facility]) In sinus rhythm on telemetry after cardioversion yesterday. 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 Will discuss with patient at tomorrow. Allergies As of Date: 01/25/2018 Noted [...] Griffin - Fully Assessed Reason for Visit: [employer] Hospital Follow Up [3618] Prescriptions as of 01/25/2018 Sig: FUROSEMIDE 40 [...] 01/23/2018 Priority: I More... SVT (supraventricular tachycardia) ([facility]) [I47.1] 01/21/2018 More... Carotid artery disease ([facility]) [I77.9] 01/22/2018 CAD (coronary artery disease) [I25.10] [...] CASE MANAGEM Observed: 01/23/2018 Status: COMPLETED Source: [place] 3:30 PM [facility] OTHER CAMPUS REPOSITORY HNO ID: [id number] Author: Raffi Meyer (Sw) Service: (none) Author Type: Director Of Labor And Delivery Type: Care Mgt Progress Note Filed: 01/23/2018 3:43 PM Note Text: CARE MANAGEMENT DISCHARGE NOTE SERVICE DATE: 01/23/2018 SERVICE TIME: 3:34 PM LOS: 3 days Admission Date: 01/20/2018 DISCHARGE ARRANGEMENT (list agency and phone number) Home care Provider: [facility] Phone: [phone] CAREGIVER ASSESSMENT: Caregiver is ready, willing and able to meet the patient's needs as recommended by the inter-professional team? Yes Patient's transition needs and plan for meeting these needs: Pts. Family and [facility] agency are able to assist in meeting pts. Needs. Does the patient have an acute stroke diagnosis, or has the patient had a stroke during this admission? No HANDOFF COMMUNICATION: [employer]: Remi Kennedy RN Primary Care Physician: Dr. Kamara TRANSPORTATION ARRANGEMENTS: Car Dtr. to transport home ADDITIONAL CONTACT RESOURCES: Dtr. Brought pts. Portable O2 tank to hospital for transport home. Discharge Information ED to Hosp-Admission (Discharged) from 01/20/2018 in [facility] [...] discharge planning needs arise. SIGNATURE: Raffi Meyer SEMAPHORE OPERATOR, MARKETING ACCOUNT EXECUTIVE, ACM PATIENT NAME: Luz Baca DATE: January 23, 2018 TIME: 3:34 PM PAGER/CONTACT #: [phone] Observed: 01/23/2018 Status: COMPLETED Source: [place] 12:07 PM [facility] OTHER CAMPUS REPOSITORY HNO ID: [id number] Author: Micha Moreno MD Service: Hospital Medicine Author Type: Physician Type: Discharge Summaries Filed: 01/23/2018 12:13 PM Note Text: DISCHARGE SUMMARY PATIENT NAME: Luz Baca Admission Information Admission Information ADMIT DATE: 01/20/2018 DISCHARGE DATE: 01/23/2018 MY DOCTORS AND MEDICAL TEAM: My Main Hospital Doctor: Micha Moreno MD Primary Care Provider: Jameson Kamara MD My Medical Team Members: Treatment Team: Attending Provider: Micha Moreno MD Consulting: Mauro Ramírez Consulting: Krishan Irwin [...] systolic and diastolic CHF (congestive heart failure) ([facility]) Atrial fibrillation ([facility]) CAD (coronary artery disease) COPD (chronic obstructive pulmonary disease) ([facility]) 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 [address] PCP Requested Referral Additional Provider to Provider Information: Active Hospital Problems as of 01/23/2018 Noted - Resolved B Acute on chronic combined systolic and diastolic CHF (congestive heart failure) ([facility]) 12/10/2017 - Present Current Assessment AND Plan Assessment: Has diuresed well PLAN: Continue therapy as per cardiology D Atrial fibrillation ([facility]) 09/23/2010 - Present Overview In sinus rhythm [...] PROBLEM F COPD (chronic obstructive pulmonary disease) ([facility]) Unknown - Present Current Assessment AND Plan Assessment: Dyspnea seems to be from metabolic alkalosis exam looks good PLAN: Continue current therapy H Uncontrolled type 2 diabetes mellitus with stage 3 chronic kidney disease, with long-term current use of insulin ([facility]) 09/23/2004 - Present Current Assessment AND Plan [...] 01/22/2018 FOLLOW-UP APPOINTMENTS ALREADY SCHEDULED WITH A [facility] PROVIDER: Future Appointments Date Time Provider Department Center 01/25/2018 9:30 AM [facility] 01/25/2018 10:30 AM [facility] 01/25/2018 11:30 AM [facility] 01/25/2018 1:30 PM [facility] 01/26/2018 11:00 AM Jameson Adams) Koffi SCHLUTZ [facility] 02/07/2018 11:00 AM Mandy SANDOVAL [facility] 04/04/2018 8:00 AM [facility] VSLWST [facility] 04/04/2018 9:00 AM [facility] V[facility] 04/04/2018 10:30 AM Michael BROWNSWS [facility] 04/21/2018 2:50 PM Jose C NEWBERRY [facility] 05/24/2018 1:30 PM Aren Cardona AGCARDWST [facility] 10/04/2018 1:00 PM Ene Hubbard AGCARDLHRA [address] DISCHARGE MEDICATION: Current Discharge Medication [...] Diagnoses:Chronic obstructive pulmonary disease, unspecified COPD type ([facility]) furosemide (LASIX) 60 mg Take 60 mg by mouth twice daily. Associated Diagnoses:Acute on chronic combined systolic and diastolic CHF (congestive heart failure) ([facility]) isosorbide mononitrate ER (IMDUR) 60 mg Take 60 mg by mouth once daily. Qty: 30 tablet Refills: 5 Associated Diagnoses:Coronary artery disease, angina presence unspecified, unspecified vessel or lesion type, unspecified whether prairie band or transplanted heart insulin aspart U-100 (NovoLOG) [...] discharge management of this patient. SIGNATURE: Micha Moreno MD PAGER/CONTACT #: DATE: January 23, 2018 TIME: 12:07 PM NUTRITION Observed: 01/23/2018 Status: COMPLETED Source: [place] 11:48 AM [facility] OTHER CAMPUS REPOSITORY O ID: [id number] Author: Megan Gomez) Cielo Service: Nutrition Therapy [...] CONSULT PROG Observed: 01/23/2018 Status: COMPLETED Source: [place] 11:45 AM [facility] OTHER CAMPUS REPOSITORY HNO ID: [id number] Author: Leonidas Benjamin (Fel) Service: Cardiovascular Medicine Author Type: Physician Type: Consult Progress Note Filed: 01/23/2018 11:48 AM Note Text: CONSULT: CARDIOLOGY SERVICE CONSULTING PHYSICIAN: Mauro Ramírez MD PCP: Jameson Kamara MD ATTENDING: Micha Moreno MD SUBJECTIVE/INTERVAL EVENTS -This AM, feels improved [...] (A) 74 - 99 mg/dL Narrative Meter ID:[id number] -BASIC METABOLIC PNL Collection Time: 01/23/18 5:12 [...] systolic and diastolic CHF (congestive heart failure) ([facility]) (12/10/2017) Atrial fibrillation ([facility]) (09/23/2010) CAD (coronary artery disease) () COPD [...] Benjamin M.D., PGY-7 Fellow, Electrophysiology Section ([place]) Staff, Regional Cardiology Section ([place], [place], [place]) Clinical Instructor, [facility] Pager: [phone] CONSULT PROG Observed: 01/23/2018 Status: COMPLETED Source: [place] 9:43 AM [facility] OTHER CAMPUS REPOSITORY HNO ID: [id number] Author: Dina Bowman MD Service: Endocrinology Author [...] Latest Units: . 28 Dina Bowman MD [facility] Endocrinology and Metabolism [place] [facility] January 23, 2018 09:44 AM CBC Collected: 01/23/2018 Status: F Source: [place] 5:12 AM [facility] OTHER CAMPUS REPOSITORY TYPE CODE TESTS RESULT [...] Performed By: #### CBC, BMP, MG1 #### [facility] [address] [facility] [phone] BASIC METABOLIC PANL Collected: 01/23/2018 Status: F Source: [place] 5:12 AM [facility] OTHER [place] REPOSITORY TYPE CODE TESTS RESULT OUT OF REFERENCE UNITS RANGE LAB GLU 74-99 mg/dL High Glucose 132 Result Comment: The [place] [employer] (ADA) provides guidance for cutoff [...] Standards of Medical Care in Diabetes 2016, [place] [employer]. Diabetes Care. 2016.39(Suppl 1). LAB [...] Performed By: #### CBC, BMP, MG1 #### [facility] [address] [place] [address] MAGNESIUM Collected: 01/23/2018 Status: F Source: [place] 5:12 AM [facility] OTHER CAMPUS REPOSITORY TYPE CODE TESTS RESULT OUT OF REFERENCE UNITS RANGE LAB MG 1.7-2.3 mg/dL Magnesium 2.1 Performed By: #### CBC, BMP, MG1 #### [facility] [address] [place] [address] PROGRESS Observed: 01/22/2018 Status: COMPLETED Source: [place] 5:16 PM [facility] OTHER CAMPUS REPOSITORY HNO ID: [id number] Author: Micha Moreno MD Service: Hospital Medicine Author Type: Physician Type: Progress Notes Filed: 01/23/2018 9:34 AM Note Text: SERVICE DATE: 01/22/2018 SERVICE TIME: 5:16 PM HOSPITAL MEDICINE PROGRESS NOTE NIGHT AND WEEKEND COVERAGE: Nights: Please contact pager [phone]. Reason for Admission/Observation: Chest pain HOSPITAL DAY [...] Consultants: Dr. Angel Bowman Disposition: Home with [facility] SUBJECTIVE Interval HPI:No chest pain subjective [...] was reviewed. Pulse ox Most recent Xrays/CT Abrasive Mixer Most recent EKG CARE COORDINATION: No Patient Care Coordination Note on file. ASSESSMENT AND PLAN Assessment AND Plan, all Hosp Problems Active Hospital Problems as of 01/23/2018 Noted - Resolved B Acute on chronic combined systolic and diastolic CHF (congestive heart failure) ([facility]) 12/10/2017 - Present Current Assessment AND Plan Assessment: Has diuresed well PLAN: Continue therapy as per cardiology C * (Principal)Acute on chronic respiratory failure with hypoxia ([facility]) 12/10/2017 - Present Current Assessment AND Plan Assessment: The dyspnea seems to be with the elevated bicarbonate with a metabolic alkalosis and chronic CO2 retention. The chloride loss from the diuresis is the cause for the alkalosis. PLAN: Follow bicarbonate level and treat symptomatically D Atrial fibrillation ([facility]) 09/23/2010 - Present Current Assessment AND Plan Assessment: Good rate control/Eliquis for anticoagulation PLAN: Continue current regimen E CAD (coronary artery disease) Unknown - Present Current Assessment AND Plan Assessment: Currently stable PLAN: INACTIVE PROBLEM F COPD (chronic obstructive pulmonary disease) ([facility]) Unknown - Present Current Assessment AND Plan Assessment: Dyspnea seems to be from metabolic alkalosis exam looks good PLAN: Continue current therapy H Uncontrolled type 2 diabetes mellitus with stage 3 chronic kidney disease, with long-term current use of insulin ([facility]) 09/23/2004 - Present Current Assessment AND Plan Hemoglobin A1C (%) Date Value 01/20/2018 12.3 Assessment: Poor control prior to admission PLAN: Adjustments per endocrinology I HOCM (hypertrophic obstructive cardiomyopathy) ([facility]) Unknown - Present Current Assessment AND Plan [...] discussed with: Patient, Family/Other:and RN SIGNATURE: Micha Moreno MD PATIENT NAME: Luz Baca DATE: January 22, 2018 TIME: 5:16 PM PAGER/CONTACT #: CONSULT PROG Observed: 01/22/2018 Status: COMPLETED Source: [place] 11:17 AM CLINIC OTHER CAMPUS REPOSITORY HNO ID: [id number] Author: Dina Bowman MD Service: Endocrinology Author [...] Latest Units: . 25 Dina Bowman MD [facility] Endocrinology and Metabolism [place] [facility] January 22, 2018 11:17 AM CONSULT PROG Observed: 01/22/2018 Status: COMPLETED Source: [place] 10:16 AM CLINIC OTHER CAMPUS REPOSITORY O ID: [id number] Author: Leonidas Benjamin (Fel) Service: Cardiovascular Medicine Author Type: Physician Type: Consult Progress Note Filed: 01/22/2018 10:21 AM Note Text: CONSULT: CARDIOLOGY SERVICE CONSULTING PHYSICIAN: Mauro Ramírez MD PCP: Jameson Kamara MD ATTENDING: Micha Moreno MD SUBJECTIVE/INTERVAL EVENTS -This AM, reports feeling [...] or joints. -BASIC METABOLIC PNL Collection Time: 04/07/18 5:34 AM Result Value Ref Range Glucose [...] Acute on chronic respiratory failure with hypoxia ([facility]) (12/10/2017) Acute on chronic combined systolic and diastolic CHF (congestive heart failure) ([facility]) (12/10/2017) Atrial fibrillation ([facility]) (09/23/2010) CAD (coronary artery disease) () COPD (chronic obstructive pulmonary disease) ([facility]) () Elevated troponin (12/10/2017) Uncontrolled type 2 diabetes mellitus with stage 3 chronic kidney disease, with long-term current use of insulin ([facility]) (09/23/2004) HOCM (hypertrophic obstructive cardiomyopathy) ([facility]) () Hyponatremia (01/20/2018) Hyperkalemia (01/20/2018) GERD (gastroesophageal [...] Leonidas Benjamin M.D., PGY-7 Fellow, Electrophysiology Section ([facility]) Staff, Regional Cardiology Section ([facility] [place], [place], [facility]) Clinical Instructor, [facility] Pager: [phone] CBC Collected: 01/22/2018 Status: F Source: [place] 5:34 AM [facility] REPOSITORY TYPE CODE TESTS RESULT OUT OF [...] Performed By: #### CBC, BMP, MG1 #### [facility] [address] [facility] [phone] BASIC METABOLIC PANL Collected: 01/22/2018 Status: F Source: [place] 5:34 AM [facility] REPOSITORY TYPE CODE TESTS RESULT OUT OF REFERENCE UNITS RANGE LAB GLU 74-99 mg/dL High Glucose 142 Result Comment: The [place] Diabetes Association (ADA) provides guidance for cutoff [...] Standards of Medical Care in Diabetes 2016, [place] [employer]. Diabetes Care. 2016.39(Suppl 1). LAB [...] Performed By: #### CBC, BMP, MG1 #### [facility] [address] [place], [place] [phone] MAGNESIUM Collected: 01/22/2018 Status: F Source: [place] 5:34 AM [facility] REPOSITORY TYPE CODE TESTS RESULT OUT OF REFERENCE UNITS RANGE LAB MG 1.7-2.3 mg/dL Magnesium 2.1 Performed By: #### CBC, BMP, MG1 #### [facility] [address] [place] [phone] PROGRESS Observed: 01/21/2018 Status: COMPLETED Source: [place] 3:29 PM [facility] REPOSITORY HNO ID: [id number] Author: Micha Moreno MD Service: Hospital Medicine Author Type: Physician Type: Progress Notes Filed: 01/21/2018 3:29 PM Note Text: SERVICE DATE: 01/21/2018 SERVICE TIME: 3:29 PM HOSPITAL MEDICINE PROGRESS NOTE NIGHT AND WEEKEND COVERAGE: Nights: Please contact pager [phone]. Reason for Admission/Observation: Chest pain HOSPITAL DAY [...] Consultants: Dr. Angel Craig Disposition: Home with [facility] SUBJECTIVE Interval HPI:No chest pain or [...] was reviewed. Pulse ox Most recent Xrays/CT Abrasive Mixer Most recent EKG CARE COORDINATION: No Patient Care Coordination Note on file. ASSESSMENT AND PLAN Assessment AND Plan, all Hosp Problems Active Hospital Problems as of 01/21/2018 Noted - Resolved B Acute on chronic combined systolic and diastolic CHF (congestive heart failure) ([facility]) 12/10/2017 - Present C * (Principal)Acute on chronic respiratory failure with hypoxia ([facility]) 12/10/2017 - Present D Atrial fibrillation ([facility]) 09/23/2010 - Present E CAD (coronary artery disease) Unknown - Present F COPD (chronic obstructive pulmonary disease) ([facility]) Unknown - Present G Elevated troponin 12/10/2017 - Present H Uncontrolled type 2 diabetes mellitus with stage 3 chronic kidney disease, with long-term current use of insulin ([facility]) 09/23/2004 - Present I HOCM (hypertrophic obstructive cardiomyopathy) ([facility]) Unknown - Present J Hyperkalemia 01/20/2018 - Present Hyponatremia 01/20/2018 - Present K GERD (gastroesophageal reflux disease) Unknown - Present L Sleep apnea Unknown - Present M Essential hypertension Unknown - Present Obesity 2010 - Present Plan of care discussed with: Patient and RN SIGNATURE: Micha Moreno MD PATIENT NAME: Luz Baca DATE: January 21, 2018 TIME: 3:29 PM PAGER/CONTACT #: CONSULT Observed: 01/21/2018 Status: COMPLETED Source: [place] 11:57 AM CLINIC OTHER CAMPUS REPOSITORY O ID: [id number] Author: Mauro Ramírez Service: Cardiovascular Medicine Author Type: Physician Type: Consults Filed: 01/21/2018 1:06 PM Note Text: CONSULT: CARDIOLOGY SERVICE SERVICE DATE: 01/21/2018 SERVICE TIME: 11:57 AM CONSULTING PHYSICIAN: Mauro Ramírez MD PCP: Jameson Kamara MD ATTENDING: Micha Moreno MD REASON FOR CONSULT: COPD (chronic obstructive pulmonary disease) ([facility]) [J44.9] HISTORY OF PRESENT ILLNESS: Ms. Baca [...] Diagnosis Date - Arthritis - Atrial fibrillation ([facility]) - CAD (coronary artery disease) stents x9, defibrillator, CABG. Seeing Dr. Cardona - Cardiac defibrillator in place - Cardiomegaly - Carotid artery disease ([facility]) left - CKD (chronic kidney disease), stage IV ([facility]) Dr. Martin - COPD (chronic obstructive pulmonary disease) ([facility]) Dr. Cruz - Depression - Diabetes ([facility]) - Diabetic neuropathy ([facility]) - GERD (gastroesophageal reflux disease) - Gout - HH (hiatus hernia) - HH (hiatus hernia) - HOCM (hypertrophic obstructive cardiomyopathy) ([facility]) - HTN (hypertension) - Hyperlipidemia - Morbid obesity with BMI of 40.0-44.9, adult ([facility]) - Pacemaker - Pneumonia h/o pneumonia/bronchitis - Renal insufficiency 2003 post op - Sleep apnea 2011 not on CPAP, unable to tolerate mask 02/2017 - SVT (supraventricular tachycardia) ([facility]) NSVT and questionable VT in 2003 post [...] age 89, HTN - Heart Failure Mother PA - Cancer Father age 71, lung cancer [...] Acute on chronic respiratory failure with hypoxia ([facility]) (12/10/2017) Acute on chronic combined systolic and diastolic CHF (congestive heart failure) ([facility]) (12/10/2017) HOCM (hypertrophic obstructive cardiomyopathy) ([facility]) () CAD (coronary artery disease) () Essential hypertension () COPD (chronic obstructive pulmonary disease) ([facility]) () Sleep apnea () GERD (gastroesophageal reflux disease) () Atrial fibrillation ([facility]) (09/23/2010) Uncontrolled type 2 diabetes mellitus with stage 3 chronic kidney disease, with long-term current use of insulin ([facility]) (09/23/2004) Obesity (2010) Elevated troponin (12/10/2017) Hyponatremia [...] on the floor. SIGNATURE: Mauro Ramírez MD [facility] PATIENT NAME: Luz Baca DATE: January 21, 2018 TIME: 11:57 AM Cell phone #: [phone] PROGRESS Observed: 01/21/2018 Status: COMPLETED Source: [place] 11:23 AM CLINIC [facility] [place] REPOSITORY HNO ID: [id number] Author: Remi Briseno) Brent Service: (none) Author Type: Registered Nurse Type: Progress Notes Filed: 01/21/2018 12:01 PM Note Text: PRIMARY CARE COORDINATION SBAR PCC HAND IN Luz Baca, 77 year old female SITUATION: Pt has had multiple readmissions due to COPD and CHF. Blood sugars have been difficult to control due to steroids. Pt had been seeing PharmD at [place]. Pt has followed closely with PCP, Pulmonology and Cardiology BACKGROUND: Living arrangements: Lives with Octavia griffin Contact Name and phone number: Octavia Soliman [phone] Health Trailer Mechanic: Family Member: Octavia griffin Oxygen provider: Stevie [facility] [phone] Self Care/ADLs: Needs assistance with: ADL, including [...] Psychosocial: Daughter just moved pt up from [facility] this year Medical: Pt is very complex, sees multiple specialists, including Dr. Cruz Pulmonary, Dr. Cardona Cardiology, Dr. Hogan Vascular Surgery and Dr. Rodriguez Podiatry Pt has been seeing [facility] RECOMMENDATIONS: Patient manages at home with assist of daughter and home health nurse. Daughter has health literacy issues and doesn't always respond to PCP in a timely manner. Daughter's health literacy has improved with continued re-instruction Name of [employer]: Remi Kennedy RN [facility] or [facility] office: [place] Department: Family Medicine Phone number: [phone] E-mail address: [phone] Remi Kennedy RN January 21, 2018 11:57 AM NURSING PROG Observed: 01/21/2018 Status: COMPLETED Source: [place] 10:37 AM [facility] REPOSITORY HNO ID: [id number] Author: Mandy (Rn) ALLYSON Valdez Service: (none) Author Type: Registered Nurse Type: Nursing Progress Note Filed: 01/21/2018 11:15 AM Note Text: Nursing Progress Note Patient Name: Luz Baca Patient [id number] Daily Note: Alert and oriented x3 with [...] RN CONSULT Observed: 01/21/2018 Status: COMPLETED Source: [place] 9:02 AM [facility] REPOSITORY HNO ID: [id number] Author: Krishan Irwin Rai Service: Pulmonary Disease Author Type: Physician Type: Consults Filed: 01/21/2018 2:16 PM Note Text: [facility]UL[facility] INITIAL CONSULTATION NOTE Patient Name: Luz Baca? ? REASON FOR CONSULT: Shortness of breath REQUESTING PHYSICIAN: Micha Moreno MD? ASSESSMENT: Chronic combined systolic and diastolic [...] is a 77 year old female, former [id number] smoker quit in 2003 Ht 172.7 cm [...] for referral to pulmonary hypertension clinic at [facility]). ECHO done 12/21/2017 shows grade III diastolic [...] Gonzalez on 01/18/2018. Patient was admitted to [facility] on 01/20/2018 with c/o worsening shortness [...] Diagnosis Date - Arthritis - Atrial fibrillation ([facility]) - CAD (coronary artery disease) stents x9, defibrillator, CABG. Seeing Dr. Cardona - Cardiac defibrillator in place - Cardiomegaly - Carotid artery disease ([facility]) left - CKD (chronic kidney disease), stage IV ([facility]) Dr. Martin - COPD (chronic obstructive pulmonary disease) ([facility]) Dr. Cruz - Depression - Diabetes ([facility]) - Diabetic neuropathy ([facility]) - GERD (gastroesophageal reflux disease) - Gout - HH (hiatus hernia) - HH (hiatus hernia) - HOCM (hypertrophic obstructive cardiomyopathy) ([facility]) - HTN (hypertension) - Hyperlipidemia - Morbid obesity with BMI of 40.0-44.9, adult ([facility]) - Pacemaker - Pneumonia h/o pneumonia/bronchitis - Renal insufficiency 2003 post op - Sleep apnea 2011 not on CPAP, unable to tolerate mask 02/2017 - SVT (supraventricular tachycardia) ([facility]) NSVT and questionable VT in 2003 post [...] age 89, HTN - Heart Failure Mother PA - Cancer Father age 71, lung cancer [...] ?37 FEV1/FVC ? % ? 75 ?80 YVD20-72% ?L/sec ? ? ? 1.85 ?0.92 ?49 [id number] L/sec ? ? ?2.35 ?0.92 ?39 PEF ?L/sec ? ? ? 5.81 ?3.23 ?56 NQS513% ? ?Sec ? 6.50 MVV ?L/min ? [...] ? ?Pre ? ?%Pred ? Date ? 07/16/04 ? Time ? 04:00:36PM ? FVC ? [...] ?8.76 Krishan Irwin Rai, MD Staff, Respiratory [place] [facility] Pager #[phone] CASE MANAGEM Observed: 01/21/2018 Status: COMPLETED Source: [place] 8:41 AM CLINIC OTHER CAMPUS REPOSITORY HNO ID: [id number] Author: Vanessa Loomis (Rn) ALLYSON Gonzalez Service: Case Management Author Type: Registered Nurse Type: Care Mgt Progress Note Filed: 01/21/2018 8:42 AM Note Text: CARE MANAGEMENT PROGRESS NOTE SERVICE DATE: 01/21/2018 SERVICE TIME: 8:41 AM LOS: 1 day EMR reviewed. Admit Dx chf exacerbation. On new 2L n/c chronic. From home with dtr (Octavia Soliman [phone]), active with [facility] SIGNATURE: Vanessa Gonzalez RN PATIENT NAME: Luz Baca DATE: January 21, 2018 TIME: 8:41 AM PAGER/CONTACT #: [phone] CONSULT Observed: 01/21/2018 Status: COMPLETED Source: [place] 6:47 AM [facility] OTHER CAMPUS REPOSITORY HNO ID: [id number] Author: Dina Bowman MD Service: Endocrinology Author [...] and 2 hours pc ? Call covering copyholder if glucose is less than 80 mg/dL [...] - CKD (chronic kidney disease), stage IV ([facility]) Dr. Martin - COPD (chronic obstructive pulmonary disease) ([facility]) Dr. Cruz - Depression - Diabetes ([facility]) - Diabetic neuropathy ([facility]) - GERD (gastroesophageal reflux disease) - Gout - HH (hiatus hernia) - HOCM (hypertrophic obstructive cardiomyopathy) ([facility]) - HTN (hypertension) - Hyperlipidemia - Morbid obesity with BMI of 40.0-44.9, adult ([facility]) - Pacemaker - Pneumonia h/o pneumonia/bronchitis - Renal insufficiency 2003 post op - Sleep apnea 2011 not on CPAP, unable to tolerate mask 02/2017 - SVT (supraventricular tachycardia) ([facility]) NSVT and questionable VT in 2003 post [...] age 89, HTN - Heart Failure Mother PA - Cancer Father age 71, lung cancer [...] DATA: Fingerstick glucose readings reviewed. Results for KEVEN LUZ G ( ) 01/20/2018 15:26 01/20/2018 17:34 01/20/2018 20:46 Sodium 126 (L) Potassium 5.2 (H) Chloride 84 (L) CO2 30 BUN 39 (H) Creatinine 1.36 (H) Glucose 825 (H) 804 (H) 818 (H) Calcium 8.7 Anion Gap 12 Troponin T 0.051 (H) eGFR-All Other Races 38 B-Hydroxybutyrate 0.17 Hemoglobin A1C 12.3 (H) Dina Bowman MD [facility] Endocrinology and Metabolism [place] January 21, 2018 6:48 AM BASIC METABOLIC PANL Collected: 01/21/2018 Status: F Source: [place] 5:43 AM CLINIC OTHER CAMPUS REPOSITORY TYPE CODE TESTS RESULT OUT OF REFERENCE UNITS RANGE LAB GLU 74-99 mg/dL High Glucose 274 Result Comment: The [place] Diabetes Association (ADA) provides guidance for cutoff [...] Standards of Medical Care in Diabetes 2016, [place] [employer]. Diabetes Care. 2016.39(Suppl 1). LAB [...] GFR. Performed By: #### BMP, MG1 #### [facility] [address] [place] [address] MAGNESIUM Collected: 01/21/2018 Status: F Source: [place] 5:43 AM CLINIC OTHER CAMPUS REPOSITORY TYPE CODE TESTS RESULT OUT OF REFERENCE UNITS RANGE LAB MG 1.7-2.3 mg/dL Magnesium 2.1 Performed By: #### BMP, MG1 #### [facility] [address] [place] [address] GLUCOSE Collected: 01/21/2018 Status: F Source: [place] 2:04 AM [facility] OTHER CAMPUS REPOSITORY TYPE CODE TESTS RESULT OUT OF REFERENCE UNITS RANGE LAB GLU 74-99 mg/dL High Glucose 484 Result Comment: The [place] Diabetes Association (ADA) provides guidance for cutoff [...] Standards of Medical Care in Diabetes 2016, [place] [employer]. Diabetes Care. 2016.39(Suppl 1). Performed By: #### GLU #### [facility] [address] [facility] [phone] CNPTOUTREACH Observed: 01/21/2018 Status: COMPLETED Source: [place] 12:00 AM [facility] [place] REPOSITORY Patient Outreach (FAMPWS) LUZ BACA ([id number]) 1940 F Date Time Provider Department 01/21/18 [...] steroids. Pt had been seeing PharmD at [place]. Pt has followed closely with PCP, Pulmonology and Cardiology BACKGROUND: Living arrangements: Lives with Octavia griffin Contact Name and phone number: Octavia Soliman Daughter [phone] Health Trailer Mechanic: Family Member: daughter, Octavia Oxygen provider: Stevie [facility], [facility] [phone] Self Care/ADLs: Needs assistance with: ADL, including [...] Psychosocial: Daughter just moved pt up from [facility] this year Medical: Pt is very complex, sees multiple specialists, including Dr. Cruz Pulmonary, Dr. Cardona Cardiology, Dr. Hogan Vascular Surgery and Dr. Rodriguez Podiatry Pt has been seeing [facility], Li Doyle RECOMMENDATIONS: Patient manages at home with assist of daughter and home health nurse. Daughter has health literacy issues and doesn't always respond to PCP in a timely manner. Daughter's health literacy has improved with continued re-instruction Name of [employer]: Remi Kennedy RN [facility] or [facility] office: [facility] Department: Family Medicine Phone number: [phone] E-mail address: [phone] Remi Kennedy RN January 21, 2018 11:57 [...] [place] - Fully Assessed Reason for Visit: [employer] Hospital Follow Up [3610] Prescriptions as of [...] 01/25/18 GLUCOSE Collected: 01/20/2018 Status: F Source: [place] 11:09 PM CLINIC OTHER CAMPUS REPOSITORY TYPE CODE TESTS RESULT OUT OF REFERENCE UNITS RANGE LAB GLU 74-99 mg/dL High Glucose 672 Result Comment: The [place] Diabetes Association (ADA) provides guidance for cutoff [...] Standards of Medical Care in Diabetes 2016, [place] Diabetes [employer]. Diabetes Care. 2016.39(Suppl 1). Called to and read back by: Ellyn Archuleta RN [address] 01/21/2018 0005 by Zan Shah. Performed By: #### GLU #### [facility] [address] [facility] [phone] URINALYSIS Collected: 01/20/2018 Status: F Source: [place] 10:00 PM [facility] OTHER [place] REPOSITORY TYPE CODE TESTS RESULT OUT OF RANGE REFERENCE UNITS LAB UCOL Yellow Color Abnormal Straw Alert LAB [facility] Clear Clarity Clear LAB UGLUC Negative mg/dL Glucose, Abnormal Urine >=1000 Alert LAB UBIL Negative Bilirubin, Urine Negative LAB UKET Negative Ketones, Urine Negative LAB [facility] 1.001-1.029 Specific [place], Ur 1.010 LAB UHGB Negative Hemoglobin/Blood, Negative Ur LAB UPH 5.0-8.0 pH 7.0 LAB UPROT Negative mg/dL Protein, Urine Negative LAB UUROB 0.2-1.0 Urobilinogen 0.2 LAB UNITR Negative Nitrites Negative LAB ULKEST Negative Leukest Negative Performed By: #### UA #### [facility] [address] [place], [place] [phone] LEGIONELLA URINE AG Collected: 01/20/2018 Status: F Source: [place] 10:00 PM [facility] REPOSITORY TYPE CODE TESTS RESULT OUT OF REFERENCE UNITS RANGE LAB LEGUAG Negative Legionella Urine Negative Ag Performed By: #### LEGUAG #### [facility] [address] [place], [place] [phone] URINE STREP PNEUMO Collected: 01/20/2018 Status: F Source: [place] FOR WEST USE ONLY 10:00 PM [facility] REPOSITORY TYPE CODE TESTS RESULT OUT OF REFERENCE UNITS RANGE LAB USTPW Negative Urine Negative Strep Pneumo FOR WEST USE ONLY Result Comment: Strep Pneumo vaccine may cause a false positive Strep Pneumo antigen result in the 48 hours following vaccine. Performed By: #### USTPW #### [facility] [address] [place] [phone] TROPONIN T Collected: 01/20/2018 Status: F Source: [place] 9:58 PM [facility] REPOSITORY TYPE CODE TESTS RESULT OUT OF REFERENCE UNITS RANGE LAB TROPT 0.000-0.029 ng/mL High Troponin T 0.050 Result Comment: Urgent value previously called on 01/20/18 at [facility] Performed By: #### MARIN #### [facility] [address] [facility] [phone] PROCALCITONIN Collected: 01/20/2018 Status: F Source: [place] 9:58 PM [facility] OTHER [place] REPOSITORY TYPE CODE TESTS RESULT OUT OF REFERENCE UNITS RANGE LAB PROCLT <0.09 ng/mL Procalcitonin High 0.14 Result Comment: For a guided interpretation of test results, please visit the Change in Procalcitonin Calculator, [email or web address]. Performed By: #### DON FINCHM #### [facility] [employer] [facility] [place] [address] MYCOPLASMA IGM AB Collected: 01/20/2018 Status: F Source: [place] 9:58 PM [facility] REPOSITORY TYPE CODE TESTS RESULT OUT OF [...] correlated to IFA titers. Performed By: #### DON FINCHM #### [place] [address] NURSING PROG Observed: 01/20/2018 Status: COMPLETED Source: [place] 9:36 PM [facility] OTHER [place] REPOSITORY HNO ID: [id number] Author: Russell (Rn) ALLYSON Archuleta Service: Nursing Author Type: Registered Nurse Type: Nursing Progress Note Filed: 01/21/2018 2:55 AM Note Text: Nursing Progress Note Patient Name: Luz Baca Patient Location: [id number] Daily Note: 2120 Pt on floor from 2 South. 213 BG from lab 818, hospitalist paged. [address] Wick, orders received. 2350 Patient's BG 672. Hospitalist paged. [address] Guerrero, orders received. 0250 BG 484, spoke to Dr Guerrero, orders to check BG in AM. This note was completed by: Russell Archuleta RN B-HYDROXYBUTYRATE Collected: Status: F Source: [place] 01/20/2018 8:46 PM CLINIC OTHER [place] REPOSITORY TYPE CODE TESTS RESULT OUT OF RANGE REFERENCE UNITS LAB BHBK <0.28 mmol/L 0.17 B-Hydroxybut yrate Performed By: #### BHB, GLU #### [address] [phone] #### HBA1C #### [facility] [address] [place] [address] GLUCOSE Collected: 01/20/2018 Status: F Source: [place] 8:46 PM [facility] OTHER [facility] REPOSITORY TYPE CODE TESTS RESULT OUT OF REFERENCE UNITS RANGE LAB GLU 74-99 mg/dL High Glucose 818 Result Comment: The [place] Diabetes Association (ADA) provides guidance for cutoff [...] Standards of Medical Care in Diabetes 2016, [place] [employer] Association. Diabetes Care. 2016.39(Suppl 1). Called to and read back by: Ánegl Almonte [address] [place] [address] 01/20/20182130 by Zan Shah. Performed By: #### BHB, GLU #### [address] [phone] #### HBA1C #### [facility] [address] [place] [address] HEMOGLOBIN A1C Collected: 01/20/2018 Status: F Source: [place] 8:46 PM [facility] REPOSITORY TYPE CODE TESTS RESULT OUT OF REFERENCE UNITS RANGE LAB HGBA1C 4.3-5.6 % High Hemoglobin A1c 12.3 LAB HBA0 mg/dL Est. Average Glucose 306 Result Comment: eAG: (Estimated average glucose) is a calculated value from HgbA1c and is advertising account representative of the average blood glucose level in the last 2-3 month period. Performed By: #### BHB, GLU #### [place] [phone] #### HBA1C #### [place] [address] NURSING PROG Observed: 01/20/2018 Status: COMPLETED Source: [place] 7:19 PM [facility] REPOSITORY HNO ID: [id number] Author: Irasema Mitchell (Rn) ALLYSON Basilio Service: (none) Author Type: Registered Nurse Type: Nursing Progress Note Filed: 01/20/2018 7:28 PM Note Text: Nursing Progress Note Patient Name: Luz Baca Patient Location: [facility]0204/[id number] Daily Note: [address] Mark. Pt going to be transferred to . Additional Humulin order put in. Informed Lasix was given in ED. Stated to give additional Lasix IV ordered Lasix. This note was completed by: Irasema Basilio RN NURSING PROG Observed: 01/20/2018 Status: COMPLETED Source: [place] 6:26 PM [facility] REPOSITORY HNO ID: [id number] Author: Irasema Mitchell (Rn) ALLYSON Basilio Service: (none) Author Type: Registered Nurse Type: Nursing Progress Note Filed: 01/20/2018 6:26 PM Note Text: Nursing Progress Note Patient Name: Luz Baca Patient Location: [facility]-[id number]/[id number] Daily Note: [address] Wick re: pt's BS. Doc. Putting in new order and blood sugar checks. This note was completed by: Irasema Basilio RN NURSING PROG Observed: 01/20/2018 Status: COMPLETED Source: [place] 6:13 PM [facility] REPOSITORY O ID: [id number] Author: Irasema Mitchell (Rn) ALLYSON Basilio Service: (none) Author Type: Registered Nurse Type: Nursing Progress Note Filed: 01/20/2018 6:18 PM Note Text: Nursing Progress Note Patient Name: Luz Baca Patient Location: [facility]-0204/[id number] Daily Note: [address] Pedersen per her request Blood glucose: 804. Dr. Pedersen not on right now per the pug mill operator helper. Hospitalist paged. [phone] Jonny from lab; with urgent value: of blood glucose of 804. This note was completed by: Irasema Basilio RN TROPONIN T Collected: 01/20/2018 Status: F Source: [place] 5:34 PM [facility] OTHER [facility] REPOSITORY TYPE CODE TESTS RESULT OUT OF REFERENCE UNITS RANGE LAB TROPT 0.000-0.029 ng/mL High Troponin T 0.051 Result Comment: Urgent value previously called on 01/20/18 1403. Performed By: #### MARIN #### [facility] [address] [place] [phone] GLUCOSE Collected: 01/20/2018 Status: F Source: [place] 5:34 PM [facility] REPOSITORY TYPE CODE TESTS RESULT OUT OF REFERENCE UNITS RANGE LAB GLU 74-99 mg/dL High Glucose 804 Result Comment: The [place] Diabetes Association (ADA) provides guidance for cutoff [...] Standards of Medical Care in Diabetes 2016, [place] Diabetes Association. Diabetes Care. 2016.39(Suppl 1). Called to and read back by: Martine Almonte [address] [place] [address] 01/20/2018 Dayanara Espinosa Performed By: #### GLU #### [facility] [address] [facility] [phone] ED NOTE Observed: 01/20/2018 Status: COMPLETED Source: [place] 3:41 PM [facility] REPOSITORY HNO ID: [id number] Author: Yoly Briseno) ALLYSON Colin Service: (none) Author Type: Registered Nurse Type: ED Notes Filed: 01/20/2018 3:41 PM Note Text: Report given to Irasema Valadez. HISTORY PHYSICAL Observed: 01/20/2018 Status: COMPLETED Source: [place] 3:27 PM [facility] REPOSITORY HNO ID: [id number] Author: Russell Pedersen Service: General Internal Medicine Author Type: Physician [...] Diagnosis Date - Arthritis - Atrial fibrillation ([facility]) - CAD (coronary artery disease) stents x9, defibrillator, CABG. Seeing Dr. Cardona - Cardiac defibrillator in place - Cardiomegaly - Carotid artery disease ([facility]) left - CKD (chronic kidney disease), stage IV ([facility]) Dr. Martin - COPD (chronic obstructive pulmonary disease) ([facility]) Dr. Cruz - Depression - Diabetes ([facility]) - Diabetic neuropathy ([facility]) - GERD (gastroesophageal reflux disease) - Gout - HH (hiatus hernia) - HOCM (hypertrophic obstructive cardiomyopathy) ([facility]) - HTN (hypertension) - Hyperlipidemia - Morbid obesity with BMI of 40.0-44.9, adult ([facility]) - Pacemaker - Pneumonia h/o pneumonia/bronchitis - Renal insufficiency 2003 post op - Sleep apnea 2011 not on CPAP, unable to tolerate mask 02/2017 - SVT (supraventricular tachycardia) ([facility]) NSVT and questionable VT in 2003 post [...] age 89, HTN - Heart Failure Mother PA - Cancer Father age 71, lung cancer [...] disease, with long-term current use of insulin ([facility]) POA: Yes Assessment AND Plan: glucose 800 [...] No resolved hospital problems. * SIGNATURE: Russell Pedersen MD PATIENT NAME: Luz Baca DATE: January 20, 2018 TIME: 3:27 PM PAGER/CONTACT #: [phone] BASIC METABOLIC PANL Collected: 01/20/2018 Status: F Source: [place] 3:26 PM CLINIC OTHER CAMPUS REPOSITORY TYPE CODE TESTS RESULT OUT OF REFERENCE UNITS RANGE LAB GLU 74-99 mg/dL High Glucose 825 Result Comment: The [place] Diabetes Association (ADA) provides guidance for cutoff [...] Standards of Medical Care in Diabetes 2016, [place] Diabetes Association. Diabetes Care. 2016.39(Suppl 1). No [...] actual GFR. Performed By: #### BMP #### [facility] [address] [facility] [phone] ED NOTE Observed: 01/20/2018 Status: COMPLETED Source: [place] 3:15 PM CLINIC OTHER CAMPUS REPOSITORY O ID: [id number] Author: Yoyl Briseno) Cristi, RN Service: (none) Author Type: Registered Nurse Type: ED Notes Filed: 01/20/2018 3:15 PM Note Text: Floor aware of bed assignment CASE MGT INIT Observed: 01/20/2018 Status: COMPLETED Source: ELZA JIM 3:05 PM CLINIC OTHER CAMPUS REPOSITORY HNO ID: [id number] Author: Zenobia OsheaRn) ALLYSON Soto Service: (none) Author Type: Registered Nurse Type: Care Mgt Initial Assessment Filed: 01/20/2018 3:14 PM Note Text: CARE MANAGEMENT: ASSESSMENT AND DISCHARGE PLAN SERVICE DATE: 01/20/2018 SERVICE TIME: 3:05 PM PRIMARY CARE PHYSICIAN: Jameson Kamara MD (confirmed) ADMISSION STATUS: Emergency Needs Prior to Discharge: To Be Determined;Home Care Order MEDICAL: Patient/Fingernail Technician Stated Goals: To have reduction in pain [...] Home Intervention Taken to Avoid Future Readmission? [facility] Advance Directive: Current Advance Directive: None Fire Prevention Forester Assisted with AD Completion: (declined at this [...] Walker Has the Patient Been in a Senior Living Facility in the Past 30 days? No SOCIAL: Living Arrangement: Home Lives With: Daughter Financial Resources: Retired Primary Contact: Extended Emergency Contact Information Primary Emergency Contact: Octavia Soliman Address: [address] [place] [address] [place] [id number] Relation: Daughter Supportive: Yes Other Important Patient [...] 0 I feel financially burdened by my [id number] expenses for my prescription medication: Agree mostly - 2 Patient is categorized as medium risk score 2-7: The following interventions are being put into place - Consult social work Are you interested in bedside delivery of your medications? No , uses [facility] in [place] Food Concerns: In the Last Month, Have You had Trouble Getting Food? No trouble getting food During the Last Month, Have You Worried Whether Your Food Would Run Out Before You Had Enough Money to Buy More? No Is the Patient Psychosocially Complex? No ASSESSMENT AND PLAN: Medical Needs: 2 or more chronic diseases Psychosocial Needs: None FREEDOM OF CHOICE EXPLAINED: Yes [facility] POTENTIAL TRANSITION PLANS Home Care CM [...] (who is careprovider ) in a 1SH. PSYCHOLOGICAL OPERATIONS pt was active with [facility] 1x week and would like to continue upon d/c home. CM instructed pt that a CM will remain available for any d/c needs. Pt had no further questions/concerns voiced at this time. SIGNATURE: Zenobia Soto RN PATIENT NAME: Luz Baca DATE: January 20, 2018 TIME: 3:05 PM PAGER/CONTACT #: [phone] HIGH SENS TROPONIN T Collected: 01/20/2018 Status: F Source: [place] 1:48 PM CLINIC OTHER CAMPUS REPOSITORY TYPE [...] 30 day MACE. Urgent value previously called [id number] Edwin Performed By: #### HSTNT #### [facility] [address] [facility] [phone] XR CHEST 1V FRONTAL Observed: 01/20/2018 Status: F Source: [facility] 1:36 PM [facility] OTHER CAMPUS REPOSITORY * * *Final Report* [...] Other: The visualized bony structures are intact Top Lift Cutter: SALINAS Transcribe Date/Time: Jan 20 2018 1:49P Dictated by : DONNIE HARRISON MD This examination was interpreted and the report reviewed and electronically signed by: DONNIE HARRISON MD on Jan 20 2018 1:52PM EST [id number] ED PROV NOTE Observed: 01/20/2018 Status: COMPLETED Source: [place] 1:30 PM CLINIC OTHER CAMPUS REPOSITORY O ID: [id number] Author: Leandro Kauffman MD Service: (none) Author [...] Diagnosis Date - Arthritis - Atrial fibrillation ([facility]) - CAD (coronary artery disease) stents x9, defibrillator, CABG. Seeing Dr. Cardona - Cardiac defibrillator in place - Cardiomegaly - Carotid artery disease ([facility]) left - CKD (chronic kidney disease), stage IV ([facility]) Dr. Martin - COPD (chronic obstructive pulmonary disease) ([facility]) Dr. Cruz - Depression - Diabetes ([facility]) - Diabetic neuropathy ([facility]) - GERD (gastroesophageal reflux disease) - Gout - HH (hiatus hernia) - HOCM (hypertrophic obstructive cardiomyopathy) ([facility]) - HTN (hypertension) - Hyperlipidemia - Morbid obesity with BMI of 40.0-44.9, adult ([facility]) - Pacemaker - Pneumonia h/o pneumonia/bronchitis - Renal insufficiency 2003 post op - Sleep apnea 2011 not on CPAP, unable to tolerate mask 02/2017 - SVT (supraventricular tachycardia) ([facility]) NSVT and questionable VT in 2003 post [...] age 89, HTN - Heart Failure Mother PA - Cancer Father age 71, lung cancer [...] and COPD). ASA, lasix, nitropaste, steroids, Dr. Pedersen will admit. 10 u SQ insulin as still high after 8 u SQ insulin. The attending who evaluated and managed this patient was Leandro Kauffman . Plan: The patient was admitted to Regular nursing floor. Case discussed with admitting physician, Dr. Pedersen. Consent: A procedure or transfusion was performed - No Leandro Kauffman MD Encounter Diagnosis ICD-10-CM 1. Chest pain, unspecified type R07.9 2. Hyperglycemia R73.9 3. Acute diastolic CHF (congestive heart failure) ([facility]) I50.31 4. Acute on chronic combined systolic and diastolic CHF (congestive heart failure) ([facility]) I50.43 5. Acute on chronic respiratory failure with hypoxia ([facility]) J96.21 6. Atrial fibrillation, unspecified type ([facility]) I48.91 7. Coronary artery disease, angina presence unspecified, unspecified vessel or lesion type, unspecified whether prairie band or transplanted heart I25.10 8. CKD (chronic kidney disease) stage 3, GFR 30-59 ml/min N18.3 9. Chronic obstructive pulmonary disease with acute exacerbation ([facility]) J44.1 10. Diabetes mellitus due to underlying condition, uncontrolled, with stage 3 chronic kidney disease, with long-term current use of insulin ([facility]) E08.65 E08.22 N18.3 Z79.4 11. Elevated troponin R74.8 12. Essential hypertension I10 13. Gastroesophageal reflux disease, esophagitis presence not specified K21.9 14. HOCM (hypertrophic obstructive cardiomyopathy) ([facility]) I42.1 15. Hyperkalemia E87.5 16. Hyponatremia E87.1 [...] PRO BNP Collected: 01/20/2018 Status: F Source: [place] 1:02 PM CLINIC OTHER [facility] REPOSITORY TYPE CODE TESTS RESULT OUT OF REFERENCE UNITS RANGE LAB PBNP <450 pg/mL High PRO B Natr 2145 Peptide Performed By: #### NTBNP #### [facility] [address] [place] [address] TROPONIN T Collected: 01/20/2018 Status: F Source: [place] 1:02 PM CLINIC OTHER [place] REPOSITORY TYPE CODE TESTS RESULT OUT OF REFERENCE UNITS RANGE LAB TROPT 0.000-0.029 ng/mL High Troponin T 0.068 Result Comment: Called to and read back by: Dr Kauffman [place] ED 01/20/18 [address] Performed By: #### MARIN #### [facility] [address] [place] [address] CBC AND DIFFERENTIAL Collected: 01/20/2018 Status: F Source: [place] 12:50 PM CLINIC OTHER [place] REPOSITORY TYPE CODE TESTS RESULT OUT OF [...] Low Abs Lymph 0.76 LAB AMONO % Cortland% 4.4 LAB AAMONO <0.87 k/uL Abs [place] 0.38 LAB AEOS % Eosin% 0.3 LAB AAEOS <0.46 k/uL Abs Eosin 0.03 LAB ABASO % Baso% 0.5 LAB AABASO <0.11 k/uL Abs Baso 0.04 Performed By: #### CBCDIF, PT, PTT, MG1, CMP #### [facility] [address] [place] [address] PROTIME Collected: 01/20/2018 Status: F Source: [place] 12:50 PM CLINIC OTHER CAMPUS REPOSITORY TYPE CODE TESTS RESULT OUT OF RANGE REFERENCE UNITS LAB PSEC 9.7-13.0 sec PT Sec 10.6 LAB INR 0.9-1.3 PT INR 1.0 Result Comment: Vitamin K Antagonist (VKA) Therapeutic Range: INR 2 to 3 (Target INR of 2.5) Note: For patients treated with VKA drugs, such as warfarin, the [employer] [employer] 2012 Guideline recommends [...] 2012, 141:7S-47S Jose R RA, et al. [facility] 2017, 70: 252-289 Performed By: #### CBCDIF, PT, PTT, MG1, CMP #### [facility] [address] [place] [address] APTT Collected: 01/20/2018 Status: F Source: [place] 12:50 PM [facility] REPOSITORY TYPE CODE TESTS RESULT OUT OF [...] laboratory APTT reagent in use throughout the [facility]. Performed By: #### CBCDIF, PT, PTT, MG1, CMP #### [facility] [address] [place] [address] MAGNESIUM Collected: 01/20/2018 Status: F Source: [place] 12:50 [facility] REPOSITORY TYPE CODE TESTS RESULT OUT OF REFERENCE UNITS RANGE LAB MG 1.7-2.3 mg/dL Magnesium 2.1 Performed By: #### CBCDIF, PT, PTT, MG1, CMP #### [facility] [address] [place] [address] COMP METABOLIC PANEL Collected: 01/20/2018 Status: F Source: [place] 12:50 [facility] REPOSITORY TYPE CODE TESTS RESULT OUT OF REFERENCE UNITS RANGE LAB TP 6.3-8.0 g/dL Protein, Total 6.4 LAB ALB 3.9-4.9 g/dL Low Albumin 3.3 LAB CA 8.5-10.2 mg/dL Calcium, Total 8.9 LAB TBIL 0.2-1.3 mg/dL Bilirubin, Total 0.5 LAB ALKP 32-117 U/L Alkaline High Phosphatase 157 LAB AST 13-35 U/L AST 13 LAB GLU 74-99 mg/dL Glucose High 832 Result Comment: The [place] Diabetes Association (ADA) provides guidance for cutoff [...] Standards of Medical Care in Diabetes 2016, [place] [employer]. Diabetes Care. 2016.39(Suppl 1). No [...] #### CBCDIF, PT, PTT, MG1, CMP #### [facility] [address] [place] [address] CK, TOTAL AND CKMB Collected: 01/20/2018 Status: F Source: [place] 12:50 PM [facility] OTHER [place] REPOSITORY TYPE CODE TESTS RESULT OUT OF REFERENCE UNITS RANGE LAB CK 42-196 U/L Low 37 CK LAB MB <4.3 ng/mL High MB 5.8 LAB CKMBRI 0.0-4.0 % CK CK MB MB % not % reported with CK <100 U/L. Performed By: #### CKCKMB #### [facility] [address] [facility] [phone] HIGH SENS TROPONIN T Collected: 01/20/2018 Status: F Source: [place] 12:50 PM [facility] OTHER [place] REPOSITORY TYPE CODE TESTS RESULT OUT OF [...] Joycelyn Presley Performed By: #### HSTNT #### [facility] [address] [place] [address] KIDNEY AND BLADDER Observed: 01/19/2018 Status: F Source: [place] 1:02 PM [facility] REPOSITORY [facility] Imaging Services [address] [place] [address] Kidney and Bladder MR#: [id number] Acct: [id number] Name: LUZ RUSH Rep #: [id number] : 1940 F 77 From: Mandy Davila MD PCP: Mook Kamara MD Status: REG CLI Study: Kidney and Bladder Date of Exam: 01/19/18 Exam# [id number] Ordering Dr: Jonna Martin MD STUDY: RENAL [...] Davila MD at 14:52 EDT Tel Direct: [phone], Service support , CC: Jonna Martin MD; Mook Kamara MD Top Lift Cutter: Signed PROGRESS Observed: 01/18/2018 Status: COMPLETED Source: [place] 1:32 PM CLINIC OTHER CAMPUS REPOSITORY HNO ID: [id number] Author: Aren Cardona Service: (none) Author Type: [...] restart Beta lenny for ASHD with prior PA or prior LVEF<40 (NQF 0070) - COPD [...] edema edema. Pulses are diminished. Records from [place] were reviewed. Renal function has improved. Labs were done today and are pending. Electronically Signed: Aren Cardona MD January 18, 2018 1:32 PM CC: Jameson Kamara MD CNOV Observed: 01/18/2018 Status: COMPLETED Source: [place] 1:30 PM CLINIC OTHER [place] REPOSITORY Office Visit (AGCARDWST) LUZ BACA ([id number]) 1940 F Date Time Provider Department 01/18/18 [...] restart Beta lenny for ASHD with prior PA or prior LVEFANDlt;40 (NQF 0070) - COPD [...] edema edema. Pulses are diminished. Records from [place] were reviewed. Renal function has improved. Labs [...] the following areas and commit to making [place] [facility] changes. EAT A WHOLE FOOD, PLANT BASED [...] in your area. Referring Provider: AREN CARDONA [[id number]] Allergies As of Date: 01/18/2018 Noted Allergy [...] the following areas and commit to making [place] [facility] changes. EAT A WHOLE FOOD, PLANT BASED [...] 01/18/18 PROGRESS Observed: 01/18/2018 Status: COMPLETED Source: [place] 12:21 PM [facility] REPOSITORY O ID: [id number] Author: Jose C Rodriguez Service: (none) Author [...] Objective: Patient presents to clinic ambulating in [facility] Vasc: DP and PT pulses are nonpalpable [...] mellitus (HCC (I73.9) PAD (peripheral artery disease) ([facility]) Hyperkeratosis. Plan: Patient was seen and evaluated. [...] DPM PROGRESS Observed: 01/18/2018 Status: COMPLETED Source: [place] 11:14 AM [facility] REPOSITORY HNO ID: [id number] Author: Katie Gonzalez RN Service: (none) Author Type: (none) Type: Progress Notes Filed: 01/18/2018 12:26 PM Note Text: Pt reports that her blood sugar was 185 this morning. CNOV Observed: 01/18/2018 Status: COMPLETED Source: [place] 11:10 AM [facility] REPOSITORY Office Visit (PODIWS) LUZ BACA ([id number]) 1940 F Date Time Provider Department 01/18/18 11:10 AM JOSE C RODRIGUEZ PODIWS During your [...] mellitus (HCC (I73.9) PAD (peripheral artery disease) ([facility]) Hyperkeratosis. Plan: Patient was seen and evaluated. [...] Rodriguez DPM Referring Provider: JOSE C RODRIGUEZ [[id number]] Allergies As of Date: 01/18/2018 Noted Allergy [...] complication associated with type 2 diabetes mellitus ([facility]) [E11.49] PAD (peripheral artery disease) ([facility]) [I73.9] Prescriptions as of 01/18/2018 Sig: FUROSEMIDE [...] 01/18/18 PROGRESS Observed: 01/12/2018 Status: COMPLETED Source: [place] 10:37 AM [facility] REPOSITORY HNO ID: [id number] Author: Remi (Allyson) Brent Service: (none) Author [...] BS since Wednesday, verbalized understanding and agreement. Hotshot Superintendent plan for next outreach: Will follow up one week Signature Remi Kennedy RN January 12, 2018 CNPTOUTREACH Observed: 01/12/2018 Status: COMPLETED Source: [place] 12:00 AM [facility] REPOSITORY Patient Outreach (FAMPWS) LUZ BACA ([id number]) 1940 F Date Time Provider Department 01/12/18 [...] BS since Wednesday, verbalized understanding and agreement. Hotshot Superintendent plan for next outreach: Will follow up [...] Adkins - Fully Assessed Reason for Visit: [employer] Chronic Care [3618] Prescriptions as of 01/12/2018 Sig: FUROSEMIDE 40 [...] 01/13/18 PROGRESS Observed: 01/11/2018 Status: COMPLETED Source: [employer] 12:49 PM [facility] REPOSITORY HNO ID: [id number] Author: Jameson Adams) Koffi Service: (none) Author Type: Physician Type: Progress Notes Filed: 01/11/2018 12:50 PM Note Text: Reviewed and agree. Will need to recheck glucose readings or Wednesday this week and consider decreasing lantus over the weekend to prevent hypoglycemia. PROGRESS Observed: 01/11/2018 Status: COMPLETED Source: [employer] 10:13 AM [facility] REPOSITORY HNO ID: [id number] Author: Remi Briseno) Brent Service: (none) Author Type: Registered Nurse Type: Progress Notes Filed: 01/11/2018 10:24 AM Note Text: PRIMARY CARE COORDINATION FOLLOW-UP NOTE Provider Action/FYI FYI Patient identified by name and date of . YES Spoke to JOSS Kolb nurse at [facility] Summary: TC from [place], [facility] K+ from yesterday was 4.7, [...] as pt weans off medication, verbalized understanding. Hotshot Superintendent plan for next outreach: Will follow up tomorrow Signature Remi Kennedy RN January 11, 2018 CNPTOUTREACH Observed: 01/11/2018 Status: COMPLETED Source: [place] 12:00 AM [facility] REPOSITORY Patient Outreach (FAMPWS) LUZ BACA ([id number]) 1940 F Date Time Provider Department 01/11/18 REMI KENNEDY (RN) FAMPWS During your visit today, we recorded the following information about you: Remi Kennedy RN 01/11/2018 10:24 AM Signed PRIMARY CARE COORDINATION FOLLOW-UP NOTE Provider Action/FYI FYI Patient identified by name and date of . YES Spoke to JOSS Kolb nurse at [facility] Summary: TC from [place], states K+ [...] as pt weans off medication, verbalized understanding. Hotshot Superintendent plan for next outreach: Will follow up [...] Adkins - Fully Assessed Reason for Visit: [employer] Chronic Care [3617] Prescriptions as of 01/11/2018 Sig: FUROSEMIDE 40 [...] 01/11/18 LUDA Observed: 01/11/2018 Status: COMPLETED Source: [place] 12:00 AM [facility] REPOSITORY Patient Outreach (INTMWH) LUZ BACA ([id number]) 1940 F Date Time Provider Department 01/11/18 [facility] KAMARA[facility] During your visit today, we recorded [...] Assessed Visit Diagnosis:Medication management [Z79.899] Order(s):HGB A1C [CFYVU2P] Order #: [id number] FUTURE Prescriptions as of 01/11/2018 Sig: X [...] 07/29/18 PROGRESS Observed: 01/10/2018 Status: COMPLETED Source: [place] 4:58 PM [facility] REPOSITORY HNO ID: [id number] Author: Remi (Allyson) Brent Service: (none) Author [...] and date of : YES Spoke to [facility] Summary: TC to [facility] [phone], states labs aren't final yet. Asked lab [...] yes and it was taken to [facility], [facility]. Asked about nurses assessment of pt, states she will have nurse call PCC. Hotshot Superintendent plan for next outreach: Will follow up tomorrow Signature Remi Kennedy RN January 10, 2018 PROGRESS Observed: 01/10/2018 Status: COMPLETED Source: [place] 10:42 AM [facility] REPOSITORY HNO ID: [id number] Author: Donnie Segura LPN Service: (none) Author Type: (none) Type: Progress Notes Filed: 01/10/2018 10:44 AM Note Text: Kennedi from [facility] returned call and went over notes below and aware BMP needs drawn and gave Dr fax number to her also. PROGRESS Observed: 01/10/2018 Status: COMPLETED Source: READING 10:05 AM [facility] REPOSITORY HNO ID: [id number] Author: Sean Han Ma Service: (none) Author Type: (none) Type: Progress Notes Filed: 01/10/2018 10:31 AM Note Text: Patient's daughter/ and patient notified. Requesting patient have labs drawn in home by [facility] CNPTOUTREADARLENE Observed: 01/10/2018 Status: COMPLETED Source: READING 12:00 AM [facility] REPOSITORY Patient Outreach (FAMPWS) LUZ BACA ([id number]) 1940 F Date Time Provider Department 01/10/18 REMI KENNEDY (RN) FAMTrevaWS During your visit today, we recorded the [...] and date of : YES Spoke to [facility] Summary: TC to Lab Care [phone], states labs aren't final yet. Asked lab [...] states she will have nurse call PCC. Hotshot Superintendent plan for next outreach: Will follow up [...] Adkins - Fully Assessed Reason for Visit: [employer] Chronic Care [3612] Prescriptions as of 01/10/2018 [...] 01/10/18 PROGRESS Observed: 01/08/2018 Status: COMPLETED Source: READING 9:14 AM [facility] REPOSITORY HNO ID: [id number] Author: Isabela Martinez Service: (none) Author Type: Physician Type: Progress Notes Filed: 01/08/2018 9:17 AM Note Text: Call with abnormal potassium of 6.3. Discussed with patient's daughter; she did not take potassium today, and had lasix increased. Recommended they continue to hold potassium, recheck labs on Wednesday. Isabela Martinez MD HOSP Observed: 01/08/2018 Status: COMPLETED Source: READING 12:00 AM [facility] REPOSITORY Patient Update (FAMPWS) LUZ BACA ([id number]) 1940 F Date Time Provider Department 01/08/18 [facility] During your visit today, we recorded the [...] patient have labs drawn in home by [facility] Donnie Segura LPN 01/10/2018 10:44 AM Signed Kennedi from [facility] returned call and went over notes [...] [E87.5] Order(s):BASIC METABOLIC PNL [SQBMP] Order #: [id number] FUTURE Prescriptions as of 01/08/2018 Sig: FUROSEMIDE [...] 01/08/18 POTASSIUM Collected: 01/07/2018 Status: F Source: READING 11:50 AM [facility] REPOS[facility] TYPE CODE TESTS RESULT OUT OF REFERENCE UNITS RANGE LAB K 3.7-5.1 mmol/L High Alert Potassium 6.3 Result Comment: Called to and read back by: Dr. Ángel Martinez Doctor call or contact centre team leader 01/07/18 22:20 Slaima Performed By: #### K1 #### [facility] [address] [place], [place] [address] CNOV Observed: 01/07/2018 Status: COMPLETED Source: READING 11:00 AM [facility] REPOSITORY Office Visit (PULMWS) LUZ BACA ([id number]) 1940 F Date Time Provider Department 01/07/18 11:00 AM MANDY ADKINS PULMWS During your visit today, we recorded the following information about you: Pulse Respiration Blood pressure 79/minute 20/minute 102/60 Mandy Adkins PA-C 01/07/2018 12:03 PM Signed [facility] [place], 01/07/18: HPI: The patient is here for [...] edema. GI: Heartburn and dysphagia. No diarrhea. Uro/RETURN TO FACTORY CLERK: No dysuria, hesitancy, nocturia. Musculoskeletal: No pain. [...] 1.14 1.00 - 4.00 k/uL Final CCM Cortland% 7.7 % Final CCM Abs Cortland 0.51 ANDlt;0.87 k/uL Final CCM Eosin% 3.2 [...] The mitral valve leaflets are structurally normal. Beaver mitral valve. There is trivial (trivial - 1+) mitral valve regurgitation. ? TRICUSPID VALVE Beaver tricuspid valve. There is moderate (2+ - [...] Will refer to pulmonary hypertension clinic on [facility]. - Continue nebulizer treatments every 4-6 hours [...] acceptance of my answers. Mandy Adkins PA-C [facility] [place] [address] [place] [phone] Mandy Adkins PA-C 01/07/2018 11:21 AM Signed [...] study ordered. ?? Referring Provider: MANDY ADKINS [[id number]] Allergies As of Date: 01/07/2018 Noted Allergy [...] Will refer to pulmonary hypertension clinic on [facility]. - Continue nebulizer treatments every 4-6 hours [...] 01/07/18 PROGRESS Observed: 01/07/2018 Status: COMPLETED Source: READING 10:43 AM [facility] REPOSITORY HNO ID: [id number] Author: Mandy Adkins Service: (none) Author Type: Physician Tester Electronic Scale Type: Progress Notes Filed: 01/07/2018 12:03 PM Note Text: [facility] [place], 01/07/18: HPI: The patient is here for [...] edema. GI: Heartburn and dysphagia. No diarrhea. Uro/RETURN TO FACTORY CLERK: No dysuria, hesitancy, nocturia. Musculoskeletal: No pain. [...] 1.14 1.00 - 4.00 k/uL Final CCM Cortland% 7.7 % Final CCM Abs Cortland 0.51 <0.87 k/uL Final CCM Eosin% 3.2 [...] The mitral valve leaflets are structurally normal. Beaver mitral valve. There is trivial (trivial - 1+) mitral valve regurgitation. ? TRICUSPID VALVE Beaver tricuspid valve. There is moderate (2+ - [...] Will refer to pulmonary hypertension clinic on [facility]. - Continue nebulizer treatments every 4-6 hours [...] acceptance of my answers. Mandy Adkins PA-C [facility] [place] [facility] [place] [address] [place] [phone] PROGRESS Observed: 01/06/2018 Status: COMPLETED Source: READING 4:22 PM [facility] [place] REPOSITORY HNO ID: [id number] Author: Jameson Adams) Koffi Service: (none) Author Type: Physician Type: Progress Notes Filed: 01/06/2018 4:22 PM Note Text: Reviewed. PROGRESS Observed: 01/06/2018 Status: COMPLETED Source: READING 3:50 PM [facility] [place] REPOSITORY HNO ID: [id number] Author: Remi Briseno) Brent Service: (none) Author Type: Registered Nurse Type: Progress Notes Filed: 01/06/2018 4:20 PM Note Text[facility] is scheduled for f/u appt with [facility] to see Mandy Yanez CNP on 01/20 at 12:45 in [place] office, verbalized understanding by teach back. Also states pt has an US at [facility] scheduled on 01/[address] Martin. Also has ordered labwork for Dr. Martin; A1C, Vit D, Urine Protein/Creat Ratio, Urine Alb/Creat Ratio, CBC, U/A, Renal Function Panel, PTH, Calcium, Uric Acid. Remi Kennedy RN TC to [facility], discussed Gastric Emptying Study and Hosp F/U appt for pt. Scheduled F/U appt with Arsen Pringle CNP for 01/20 @ 12:45 in [place]. States they don't have the discharge summary and Dr. Patterson is on vacation so they are unsure about the Gastric Emptying Study. Arsen Yanez is out of the office, they will call [facility] back tomorrow regarding study. [facility] states the paper given her for pt states pt is to have Gastric Emptying Study, Dx: Dysphagia, Retained Food in Stomach on Eval. Phone Number Mandy Yanez CNP [phone], [facility]. Remi Kennedy RN URINALYSIS WITH Collected: 01/06/2018 Status: F Source: [facility] 1:11 PM [facility] REPOSITORY TYPE CODE TESTS RESULT OUT OF RANGE REFERENCE UNITS LAB UCOL Yellow Color Yellow LAB [facility] Clear Clarity Abnormal Cloudy Alert LAB UGLUC Negative mg/dL Glucose, Urine Negative LAB UBIL Negative Bilirubin, Urine Negative LAB UKET Negative Ketones, Urine Negative LAB USPG 1.005-1.030 Specific [place], Ur 1.009 LAB UHGB Negative Hemoglobin/Blood, Negative [...] Epithelial Cells Performed By: #### UAWMIC #### [facility] [address] [address] CBC AND DIFFERENTIAL Collected: 01/06/2018 Status: F Source: READING 1:10 PM [facility] REPOSITORY TYPE CODE TESTS RESULT OUT [...] k/uL Abs Lymph 1.14 LAB AMONO % Cortland% 7.7 LAB AAMONO <0.87 k/uL Abs Cortland 0.51 LAB AEOS % Eosin% 3.2 LAB AAEOS <0.46 k/uL Abs Eosin 0.21 LAB ABASO % Baso% 0.8 LAB AABASO <0.11 k/uL Abs Baso 0.05 LAB AUNRBC 0 /100 WBC NRBCs High 0.2 LAB ABNRBC <0.01 k/uL Absolute High nRBC 0.01 LAB DTYP DTYPE Auto Diff Performed By: #### CBCDIF, NTBNP, CMP #### [facility] [address] [id number] NT PRO BNP Collected: 01/06/2018 Status: F Source: [place] 1:10 PM [facility] REPOSITORY TYPE CODE TESTS RESULT OUT OF REFERENCE UNITS RANGE LAB PBNP <450 pg/mL High PRO B Natr 1577 Peptide Performed By: #### CBCDIF, NTBNP, CMP #### [place] [address] [place] [address] COMP METABOLIC PANEL Collected: 01/06/2018 Status: F Source: READING 1:10 PM [facility] REPOSITORY TYPE CODE TESTS RESULT OUT OF REFERENCE UNITS RANGE LAB TP 6.3-8.0 g/dL Low Protein, Total 6.2 LAB ALB 3.9-4.9 g/dL Low Albumin 3.1 LAB CA 8.5-10.2 mg/dL Calcium, Total 8.9 LAB TBIL 0.2-1.3 mg/dL Bilirubin, Total 0.6 LAB ALKP 32-117 U/L Alkaline Phosphatase 82 LAB AST 13-35 U/L AST 27 LAB GLU 74-99 mg/dL Glucose High 168 Result Comment: The [place] [employer] Association (ADA) provides guidance for cutoff [...] Standards of Medical Care in Diabetes 2016, [place] [employer]. Diabetes Care. 2016.39(Suppl 1). LAB [...] Performed By: #### CBCDIF, NTBNP, CMP #### [facility] [employer] [address], [place] [address] Observed: 01/06/2018 Status: F Source: [place] URINE CULTURE 1:10 PM [facility] REPOSITORY Sp. Request/Comment: - Best Practice Alert: To ensure optimal transport conditions and accurate culture results transfer urine specimens to hernandez top C and S preservative tube. Culture Result - <10,000 CFU/ml Normal urogenital mitra Performed By: #### URCUL #### [facility] [employer] [address], [place] [id number] XR CHEST 2V FRONTAL/LAT Observed: 01/06/2018 Status: F Source: [place] 12:24 PM [facility] REPOSITORY * * *Final Report* * * [...] markings, suggestive of pulmonary venous congestion. Cardiomegaly. Top Lift Cutter: SALINAS Transcribe Date/Time: Jan 06 2018 12:30P Dictated by : LISA MILLER MD This examination was interpreted and the report reviewed and electronically signed by: LISA MILLER MD on Jan 06 2018 12:33PM EST [id number] PROGRESS Observed: 01/06/2018 Status: COMPLETED Source: [place] 12:15 PM [facility] REPOSITORY HNO ID: [id number] Author: Sarahi Freeman (Guadalupe German Service: (none) Author Type: Bomb Loader Type: Progress Notes Filed: 01/06/2018 12:24 PM [...] Not applicable SIGNED BY: RT Rg January 06, 2018 12:15 PM PROGRESS Observed: 01/06/2018 Status: COMPLETED Source: READING 12:09 PM [facility] REPOSITORY HNO ID: [id number] Author: Remi Briseno) Brent Service: (none) Author [...] 2018 PROGRESS Observed: 01/06/2018 Status: COMPLETED Source: READING 11:08 AM [facility] REPOSITORY HNO ID: [id number] Author: Jameson Kamara Service: (none) Author Type: Physician Type: Progress Notes Filed: 01/07/2018 9:29 AM Note Text: Chief Complaint Patient presents with: ER F/U: 12/31-pneumonia HPI Luz Baca is a 77 year old female who presents here today for Hospital Discharge Follow up. Patient was treated at [facility] from 11/25 to 12/31 for HCAP and [...] Kamara MD ? Other Medical Team Members: Supervisor Finishing Room: consult ? ID consult ? The Reason [...] pulmonology not until next month, will have career representative Remi Olveram call to set up earlier appointment. Admits [...] - CKD (chronic kidney disease), stage IV ([facility]) - COPD (chronic obstructive pulmonary disease) ([facility]) Dr. Cruz - Depression - Diabetes ([facility]) - Diabetic neuropathy ([facility]) - GERD (gastroesophageal reflux disease) - Gout - HH (hiatus hernia) - HOCM (hypertrophic obstructive cardiomyopathy) ([facility]) - HTN (hypertension) - Hyperlipidemia - Morbid obesity with BMI of 40.0-44.9, adult ([facility]) - Pacemaker - Pneumonia h/o pneumonia/bronchitis - Renal insufficiency 2003 post op - Sleep apnea 2011 not on CPAP, unable to tolerate mask 02/2017 - SVT (supraventricular tachycardia) ([facility]) NSVT and questionable VT in 2003 post [...] age 89, HTN - Heart Failure Mother PA - Cancer Father age 71, lung cancer [...] EGD with dilation. 4. SVT (supraventricular tachycardia) ([facility]) - ICD9: 427.89, ICD10: I47.1 Normal exam today. Continue current regimen and follow up with cardiology on 01/18. 5. Coronary artery disease, angina presence unspecified, unspecified vessel or lesion type, unspecified whether prairie band or transplanted heart - ICD9: 414.00, ICD10: [...] with more than 50% of the total ysiw-ia-yiwo time of the visit in counseling / coordination of care. Jameson Kamara MD CNOV Observed: 01/06/2018 Status: COMPLETED Source: READING 10:40 AM [facility] REPOSITORY Office Visit (FAMPWS) LUZ BACA ([id number]) 1940 F Date Time Provider Department 01/06/18 [...] Discharge Follow up. Patient was treated at [facility] from 11/25 to 12/31 for HCAP and [...] Kamara MD ? Other Medical Team Members: Supervisor Finishing Room: consult ? ID consult ? The Reason [...] pulmonology not until next month, will have career representative Remi Kennedy call to set up earlier [...] place - Cardiomegaly - Carotid artery disease ([facility]) left - CKD (chronic kidney disease), stage IV ([facility]) - COPD (chronic obstructive pulmonary disease) ([facility]) Dr. Cruz - Depression - Diabetes ([facility]) - Diabetic neuropathy ([facility]) - GERD (gastroesophageal reflux disease) - Gout - HH (hiatus hernia) - HOCM (hypertrophic obstructive cardiomyopathy) ([facility]) - HTN (hypertension) - Hyperlipidemia - Morbid obesity with BMI of 40.0-44.9, adult ([facility]) - Pacemaker - Pneumonia h/o pneumonia/bronchitis - Renal insufficiency 2003 post op - Sleep apnea 2011 not on CPAP, unable to tolerate mask 02/2017 - SVT (supraventricular tachycardia) ([facility]) NSVT and questionable VT in 2003 post [...] age 89, HTN - Heart Failure Mother PA - Cancer Father age 71, lung cancer [...] Prescriptions on File Prior to Visit: pantoprazole (PROTONIX) 40 mg tablet Take 1 tablet [...] systolic and diastolic CHF (congestive heart failure) ([facility]) - ICD9: 428.43, 428.0, ICD10: I50.43 Continue [...] EGD with dilation. 4. SVT (supraventricular tachycardia) ([facility]) - ICD9: 427.89, ICD10: I47.1 Normal exam today. Continue current regimen and follow up with cardiology on 01/18. 5. Coronary artery disease, angina presence unspecified, unspecified vessel or lesion type, unspecified whether prairie band or transplanted heart - ICD9: 414.00, ICD10: I25.10 Will change Imdur from 30 mg BID to 60 mg daily. To call if chest pain persists. Discussed indications for ER evaluation. - ISOSORBIDE MONONITRATE ER 60 MG TABLET,EXTENDED RELEASE 24 HR 6. HOCM (hypertrophic obstructive cardiomyopathy) ([facility]) - ICD9: 425.11, ICD10: I42.1 Recommendations per cardiology. 7. Essential hypertension - ICD9: 401.9, ICD10: I10 - good control - Continue current medication(s) - Encouraged dietary sodium restriction/DASH diet - Recommended regular aerobic exercise. - Reviewed risks of HTN and principles of treatment - Goal of BP ANDlt;140/90 8. Chronic obstructive pulmonary disease, unspecified COPD type ([facility]) - ICD9: 496, ICD10: J44.9 Will restart [...] with more than 50% of the total qmyg-qz-mktx time of the visit in counseling / coordination of care. Jameson Kamara MD Referring Provider: JAMESON KAMARA) [[id number]] Allergies As of Date: 01/06/2018 Noted Allergy [...] systolic and diastolic CHF (congestive heart failure) ([facility]) [I50.43] Schatzki's ring [K22.2] SVT (supraventricular tachycardia) ([facility]) [I47.1] Coronary artery disease, angina presence unspecified, unspecified vessel or lesion type, unspecified whether prairie band or transplanted heart [I25.10] HOCM (hypertrophic obstructive cardiomyopathy) ([facility]) [I42.1] Essential hypertension [I10] Chronic obstructive pulmonary disease, unspecified COPD type ([facility]) [J44.9] Sleep apnea, unspecified type [G47.30] Atrial fibrillation, unspecified type ([facility]) [I48.91] CKD (chronic kidney disease), stage IV ([facility]) [N18.4] Urinary frequency [R35.0] Order(s):isosorbide mononitrate ER (IMDUR) 60 mg 24 hr tabletTake 1 tablet by mouth once daily.Disp: 30 tabletRfl: 5 predniSONE (DELTASONE) 10 mg tabletTake 4 tabs daily x 3 days, then 3 tabs x 3 days, 2 tabs x 3 days, then 1 tab x3 days with food.Disp: 30 tabletRfl: 1 NT PRO BNP [SQNTBNP] Order #: [id number] FUTURE CBC + DIFF [SQCBCDIF] Order #: [id number] FUTURE COMP METABOLIC PANEL [SQCMP] Order #: [id number] FUTURE URINALYSIS WITH MICROSCOPIC [SQUAWMIC] Order #: [id number]. #:[id number] URINE CULTURE [SQURCUL] Order #: [id number] FUTURE XR CHEST 2V FRONTAL/LAT [[id number]] Order #: [id number] FUTURE Prescriptions as of 01/06/2018 Sig: ISOSORBIDE [...] 01/06/2018 11:18 AM >> SOHAIL LONGORIA MA [facility] Jan 06, 2018 11:18 AM PRN GABAPENTIN 300 MG CAPSULE >> Sohail Longoria Ma 01/06/2018 11:18 AM >> SOHAIL LONGORIA MA [facility] Jan 06, 2018 11:18 AM Duplicate COLCHICINE 0.6 MG TABLET >> Sohail Longoria Ma 01/06/2018 11:17 AM >> SOHAIL LONGORIA MA [facility] Jan 06, 2018 11:17 AM No longer taking. BENZONATATE 100 MG CAPSULE >> Sohail Longoria Ma 01/06/2018 11:17 AM >> SOHAIL LONGORIA MA [facility] Jan 06, 2018 11:17 AM Therapy complete [...] 01/07/18 LUDA Observed: 01/06/2018 Status: COMPLETED Source: READING 12:00 AM [facility] REPOSITORY Patient Outreach (FAMPWS) LUZ BACA ([id number]) 1940 F Date Time Provider Department 01/06/18 [...] week Remi Kennedy RN January 06, 2018 Remi Kennedy RN 01/06/2018 4:20 PM Addendum TC to [place], informed pt is scheduled for f/u appt with [facility] to see Mandy Yanez CNP on 01/20 at 12:45 in [place] office, verbalized understanding by teach back. Also states pt has an US at [facility] scheduled on 01/[address] Martin. Also has ordered labwork for Dr. Martin; A1C, Vit D, Urine Protein/Creat Ratio, Urine Alb/Creat Ratio, CBC, U/A, Renal Function Panel, PTH, Calcium, Uric Acid. Remi Kennedy RN TC to [facility], discussed Gastric Emptying Study and Hosp F/U appt for pt. Scheduled F/U appt with Arsen Pringle CNP for 01/20 @ 12:45 in [place]. States they don't have the discharge summary [...] Stomach on Eval. Phone Number Mandy Yanez, CHIEF MECHANICAL ENGINEER [phone], [facility]. ALLYSON Buck MD 01/06/2018 [...] Ma - Fully Assessed Reason for Visit: [employer]-In Office Visit [3278] Prescriptions as of 01/06/2018 Sig: ISOSORBIDE MONONITRATE [...] 01/07/18 PROGRESS Observed: 01/05/2018 Status: COMPLETED Source: [place] 2:16 PM [facility] [place] REPOSITORY HNO ID: [id number] Author: Jameson Adams) Koffi Service: (none) Author Type: Physician Type: Progress Notes Filed: 01/05/2018 2:18 PM Note Text: Med updates filed. PROGRESS Observed: 01/05/2018 Status: COMPLETED Source: [place] 2:06 PM [facility] [place] REPOSITORY HNO ID: [id number] Author: Remi Briseno) Brent Service: (none) Author Type: Registered Nurse Type: Progress Notes Filed: 01/05/2018 2:18 PM Note Text: Please file medication updates PROGRESS Observed: 01/04/2018 Status: COMPLETED Source: [place] 7:02 PM [facility] [place] REPOSITORY HNO ID: [id number] Author: Jameson Adams) Koffi Service: (none) Author Type: Physician Type: Progress Notes Filed: 01/04/2018 7:02 PM Note Text: Reviewed. PROGRESS Observed: 01/03/2018 Status: COMPLETED Source: [place] 4:56 PM [facility] [place] REPOSITORY HNO ID: [id number] Author: Remi Briseno) Brent Service: (none) Author [...] name and . SUMMARY: -Pt discharged from [place] on 12/31. -Follow up appointment on 01/06 [...] good then will discharge her home with [facility]. F/u with pcp, cardiology and GI as out pt. Pending biopsy from EGD. Remi Kennedy RN January 03, 2018 5:19 PM [place] Observed: 01/03/2018 Status: COMPLETED Source: [place] 10:00 AM [facility] REPOSITORY Office Visit (VASSWS) BACALUZ ZHONG ([id number]) 1940 F Date Time Provider Department 01/03/18 10:00 AM MICHAEL HOGAN During your visit today, [...] place - Cardiomegaly - Carotid artery disease ([facility]) left - CKD (chronic kidney disease), stage IV ([facility]) - COPD (chronic obstructive pulmonary disease) ([facility]) Dr. Cruz - Depression - Diabetes ([facility]) - Diabetic neuropathy ([facility]) - GERD (gastroesophageal reflux disease) - Gout - HH (hiatus hernia) - HOCM (hypertrophic obstructive cardiomyopathy) ([facility]) - HTN (hypertension) - Hyperlipidemia - Morbid obesity with BMI of 40.0-44.9, adult ([facility]) - Pacemaker - Pneumonia h/o pneumonia/bronchitis - Renal insufficiency 2003 post op - Sleep apnea 2011 not on CPAP, unable to tolerate mask 02/2017 - SVT (supraventricular tachycardia) ([facility]) NSVT and questionable VT in 2003 post [...] age 89, HTN - Heart Failure Mother PA - Cancer Father age 71, lung cancer [...] TIME: 9:55 AM Referring Provider: JAMESON KAMARA) [[id number]] Allergies As of Date: 01/03/2018 Noted Allergy [...] (HCC) [I73.9] Order(s):PVR LEG [facility] [[id number]] Order #: [id number] FUTURE US LEG ARTERIAL PERIPH [facility] [[id number]] Order #: [id number] FUTURE Prescriptions as of 01/03/2018 Sig: CEFDINIR [...] 01/03/18 PROGRESS Observed: 01/03/2018 Status: COMPLETED Source: [place] 9:55 AM [facility] REPOSITORY HNO ID: [id number] Author: Michael Hogan Service: (none) Author Type: [...] (hiatus hernia) - HOCM (hypertrophic obstructive cardiomyopathy) ([facility]) - HTN (hypertension) - Hyperlipidemia - Morbid obesity with BMI of 40.0-44.9, adult ([facility]) - Pacemaker - Pneumonia h/o pneumonia/bronchitis - Renal insufficiency 2003 post op - Sleep apnea 2011 not on CPAP, unable to tolerate mask 02/2017 - SVT (supraventricular tachycardia) ([facility]) NSVT and questionable VT in 2003 post [...] age 89, HTN - Heart Failure Mother PA - Cancer Father age 71, lung cancer [...] SIGNATURE: Michael Hogan DO PATIENT NAME: Luz Franco Baca DATE: January 03, 2018 TIME: 9:55 AM CNPTOUTREACH Observed: 01/03/2018 Status: COMPLETED Source: [place] 12:00 AM [facility] REPOSITORY Patient Outreach (FAMPWS) KEVENULZ ([id number]) 1940 F Date Time Provider Department 01/03/18 REMI KENNEDY) FAMPWS During your visit today, we recorded the following information about you: Remi Kennedy, RN 01/04/2018 11:43 AM Addendum TRANSITION CARE MANAGEMENT [...] name and . SUMMARY: -Pt discharged from [facility] on 12/31. -Follow up appointment on 01/06 [...] good then will discharge her home with [facility]. F/u with pcp, cardiology and GI [...] RN - Fully Assessed Reason for Visit: [employer] Hospital Follow Up [3610] Primary Visit Diagnosis:Acute on chronic combined systolic and diastolic CHF (congestive heart failure) ([facility]) [I50.43] Other Visit Diagnosis:Gastroesophageal reflux disease, esophagitis [...] OF CARE Observed: 12/31/2017 Status: COMPLETED Source: [place] 4:45 PM [facility] REPOSITORY O ID: [id number] Author: Maciel Oliveros (Pharmacist) Service: Pharmacy Author [...] ER 10 mEq tablet Commonly known as: K-DURLISAOR-CON TAKE ONE TABLET BY MOUTH DAILY WITH [...] Your Medications These medications were sent to [facility] [address] [place] [address] - [address] [place] [address] - [phone] [place] [address] - cefdinir 300 mg capsule - gabapentin [...] ANES POST Observed: 12/31/2017 Status: COMPLETED Source: READING 4:45 PM CLINIC OTHER CAMPUS REPOSITORY HNO ID: [id number] Author: [place]ito [place] Service: Anesthesiology Author Type: [...] 31, 2017 TIME: 6:29 PM PAGER/CONTACT #: [phone] THERAPY NT Observed: 12/31/2017 Status: COMPLETED Source: READING 4:16 PM CLINIC OTHER CAMPUS REPOSITORY HNO ID: [id number] Author: Keren (Veterinarian Assistant) Pema Service: Speech/Swallow Author Type: Speech Language Pathologist Type: Therapy (PT/OT/Speech/Resp) Filed: 12/31/2017 4:17 PM Note Text: [address] [place] [address] [facility] SPEECH THERAPY MISSED VISIT NOTE SERVICE DATE: 12/31/2017 SERVICE TIME: 14:15 Attempted patient therapy visit, but was unable for the following reason(s): Nursing consult indicated Pt NPO at this time secondary to test/procedure. Will attempt again as schedule permits SIGNATURE: Keren Mcadams CCC-NOTEMAN PATIENT NAME: Luz Baca DATE: December 31, 2017 TIME: 4:16 PM PAGER/CONTACT #: [phone] CASE MANAGEM Observed: 12/31/2017 Status: COMPLETED Source: READING 3:18 PM CLINIC OTHER CAMPUS REPOSITORY HNO ID: [id number] Author: Radha Bar (Sw) Service: Care Management Author Type: Director Of Labor And Delivery Type: Care Mgt Progress Note Filed: 12/31/2017 3:24 PM Note Text: CARE MANAGEMENT PROGRESS NOTE SERVICE DATE: 12/31/2017 SERVICE TIME: 3:15pm LOS: 8 days IM letter given to patient and daughter on 12/31/2017. SIGNATURE: TAMELA Olson PATIENT NAME: Luz Condein DATE: December 31, 2017 TIME: 3:18 PM PAGER/CONTACT #: [phone] CASE MANAGEM Observed: 12/31/2017 Status: COMPLETED Source: READING 3:00 PM [facility] REPOSITORY HNO ID: [id number] Author: Radha Bar (Sw) Service: Care Management Author Type: Director Of Labor And Delivery Type: Care Mgt Progress Note Filed: 12/31/2017 [...] 31, 2017 TIME: 3:01 PM PAGER/CONTACT #: [phone] CNDS Observed: 12/31/2017 Status: COMPLETED Source: READING 2:51 PM CLINIC OTHER [place] REPOSITORY HNO ID: [id number] Author: Peyman Guerrero Service: Hospital Medicine Author [...] Kamara MD ? Other Medical Team Members: Supervisor Finishing Room: consult ? ID consult The Reason I [...] good then will discharge her home with [facility]. F/u with pcp, cardiology and GI [...] These instructions explain what you or your livestock caretaker need to do to continue your care at home or at another healthcare facility ? Please go over these instructions with your nurse and livestock caretaker. ? If you are not sure about [...] CONSULT PROG Observed: 12/31/2017 Status: COMPLETED Source: READING 2:09 PM [facility] OTHER CAMPUS REPOSITORY O ID: [id number] Author: Max Reynolds Service: Infectious Disease Author [...] Pager: PROGRESS Observed: 12/31/2017 Status: COMPLETED Source: READING 12:45 PM CLINIC OTHER CAMPUS REPOSITORY HNO ID: [id number] Author: Peyman Guerrero Service: Hospital Medicine Author Type: Physician Type: Progress Notes Filed: 12/31/2017 12:48 PM Note Text: HOSPITAL MEDICINE PROGRESS NOTE Name: Luz Baca SERVICE DATE: 12/31/2017 SERVICE TIME: 12:45 PM LOCATION / ROOM: [facility]0317/[id number] Hospital Medicine/Primary Attending: Peyman guerrero MD NIGHT COVERAGE BETWEEN 5.30P-7.30A Page [phone] ASSESSMENT AND PLAN HCAP (healthcare-associated pneumonia), suspected [...] BID Radha Adams) Thuestad 600 mg at 12/31/17 1013 [...] mL 3-5 mL INTRAVENOUS q 12 H Klickitatebonie Adams) Thuestad 3 mL at 12/31/17 1014 benzonatate 100 mg cap(s) (TESSALON PERLE) 100 mg ORAL TID Hareesh Singam 100 mg at 12/31/17 1013 insulin lispro injection (rapid acting) (HumaLOG) SUBCUTANEOUS w MEALS Caroline (Pickling Tank Operator) Garcia 8 Units at 12/30/17 0746 insulin lispro injection (rapid acting) (HumaLOG) SUBCUTANEOUS AT BEDTIME Caroline (Pickling Tank Operator) Garcia 4 Units at 12/30/17 2117 OBJECTIVE [...] Patient is already anti-coagulated. Disposition: Home with [facility] PT, possibly tomorrow Plan of care discussed with: Patient, daughter and RN SIGNATURE: Peyman guerrero MD DATE: December 31, 2017 TIME: 12:48 PM NURSING PROG Observed: 12/31/2017 Status: COMPLETED Source: READING 9:43 AM [facility] REPOSITORY HNO ID: [id number] Author: Sylwia Briseno) ALLYSON Vora Service: (none) Author Type: Registered Nurse Type: Nursing Progress Note Filed: 12/31/2017 11:23 AM Note Text: Nursing Progress Note Patient Name: Luz Baca Patient Location: [place] [id number] Daily Note: 0907 Patient returned to floor, stable condition, c/o sore throat, drinks given, family at bedside. 1105 Patient c/o nausea, page out to hospitalist 1120 Patient had one emesis and one incontinent bowel movement, GI POLYSOMNOGRAPHIC TECHNICIAN aware. This note was completed by: Sylwia Vora RN CASE MANAGEM Observed: 12/31/2017 Status: COMPLETED Source: READING 9:37 AM [facility] REPOSITORY HNO ID: [id number] Author: Radha Bar (Sw) Service: Care Management Author Type: Director Of Labor And Delivery Type: Care Mgt Progress Note Filed: 12/31/2017 9:44 AM Note Text: CARE MANAGEMENT PROGRESS NOTE SERVICE DATE: 12/31/2017 SERVICE TIME: 9:30am LOS: 8 days [employer] Providing patient with hospital bed. Per patient's daughter, bed will be delivered to patient's home today. SIGNATURE: TAMELA Olson PATIENT NAME: Luz Baca DATE: December 31, 2017 TIME: 9:37 AM PAGER/CONTACT #: [phone] SURGICAL PATHOLOGY Observed: 12/31/2017 Status: C Source: READING 9:30 AM [facility] OTHER CAMPUS REPOSITORY ADDENDUM PRESENT Specimen originated from [facility] Specimen #: [id number] Submitting Physician: Mara Hernandez M.D. FINAL DIAGNOSIS [...] in-situ hybridization tests have been determined by [facility]'s [facility] Medicine [place] ([facility]) in a manner consistent with CLIA requirements. One or more of these tests have not been cleared or approved by the FDA. [facility] is regulated under CLIA as qualified to perform high-complexity testing. These tests are used for clinical purposes. They should not be regarded as investigational or for research. Cecil Moody M.D. (Electronic Signature) SPECIMEN SUBMITTED A: [...] in one cassette. Gross examination performed at [facility], [address] [place] [address] 12/31/2017 6:02:32 PM Date of Report: 01/04/2018 Date of Procedure: 12/31/2017 Date of Receipt: 12/31/2017 Submitted by: Mara Hernandez M.D. Location: 3 V Diagnostic interpretation performed at [facility], [address] [place] [address]. Performed By: #### PATHS #### [place] [address] [phone] NURSING PROG Observed: 12/31/2017 Status: COMPLETED Source: READING 8:01 AM [facility] REPOSITORY HNO ID: [id number] Author: Aleisha OsheaRn) ALLYSON Eaton Service: Nursing Author Type: Registered Nurse Type: Nursing Progress Note Filed: 12/31/2017 8:50 AM Note Text: Nursing Progress Note Patient Name: Luz Baca Patient Location: [facility] 0750 Pt received in PACU [...] OP NOT Observed: 12/31/2017 Status: COMPLETED Source: READING 7:43 AM [facility] REPOSITORY HNO ID: [id number] Author: Mara Hernandez Service: (none) Author Type: Physician Type: Brief Op Note Filed: 12/31/2017 7:45 AM Note Text: BRIEF OPERATIVE / PROCEDURE NOTE LOG ID: [id number] Surgery/Procedure Date: 12/31/2017 Incision/Procedure Start Time: 7:30 AM Incision Close/Procedure End Time: 7:37 AM Surgeon(s)/Proceduralist(s) and Tester Electronic Scale(s): Surgeon(s) and Role: * Mara Hernandez - [...] esophagitis SIGNATURE: Mara Hernandez MD PATIENT NAME: Luz Baca DATE: December 31, 2017 TIME: 7:44 AM PAGER/CONTACT #: [phone] ANES PREOP Observed: 12/31/2017 Status: COMPLETED Source: READING 7:04 AM CLINIC OTHER CAMPUS REPOSITORY O ID: [id number] Author: [place] Service: Anesthesiology Author Type: [...] ACTIVE PROBLEM LIST Hocm (Hypertrophic Obstructive Cardiomyopathy) ([facility]) Svt (Supraventricular Tachycardia) ([facility]) Carotid artery disease (HCC) Cad (Coronary Artery Disease) Essential Hypertension Hyperlipidemia Copd (Chronic Obstructive Pulmonary Disease) ([facility]) Sleep Apnea Hh (Hiatus Hernia) Gerd (Gastroesophageal [...] Acute Exacerbation of Chf (Congestive Heart Failure) ([facility]) Acute On Chronic Combined Systolic and Diastolic Chf (Congestive Heart Failure) ([facility]) Elevated Troponin Copd With Acute Exacerbation (Hcc) Acute On Chronic Respiratory Failure With Hypoxia ([facility]) Hcap (Healthcare-Associated Pneumonia) PAST MEDICAL HISTORY Diagnosis Date - Arthritis - Atrial fibrillation (HCC) - CAD (coronary artery disease) stents x9, defibrillator, CABG. Seeing Dr. Cardona - Cardiac defibrillator in place - Cardiomegaly - Carotid artery disease ([facility]) left - CKD (chronic kidney disease), stage IV ([facility]) - COPD (chronic obstructive pulmonary disease) ([facility]) Dr. Cruz - Depression - Diabetes ([facility]) - Diabetic neuropathy ([facility]) - GERD (gastroesophageal reflux disease) - Gout - HH (hiatus hernia) - HOCM (hypertrophic obstructive cardiomyopathy) ([facility]) - HTN (hypertension) - Hyperlipidemia - Morbid obesity with BMI of 40.0-44.9, adult ([facility]) - Pacemaker - Pneumonia h/o pneumonia/bronchitis - Renal insufficiency 2003 post op - Sleep apnea 2011 not on CPAP, unable to tolerate mask 02/2017 - SVT (supraventricular tachycardia) ([facility]) NSVT and questionable VT in 2003 post [...] age 89, HTN - Heart Failure Mother [place] - Cancer Father age 71, lung cancer [...] (MERREM) 1 g INTRAVENOUS q 12 H Mxa Rodolfo 1 g at 12/30/172114 predniSONE 20 [...] Radha Ebonie Adams) Thuestad 0.6 mg at 12/30/17 0746 insulin lispro 10 Units injection (rapid acting) (HumaLOG) 10 Units SUBCUTANEOUS TID w MEALS Radha Adams) Thuestad 10 Units at 12/30/17 1659 insulin glargine 45 Units injection (long acting) (LANTUS) 45 Units SUBCUTANEOUS DAILY (8 AM) Radhaebonie Adams) Thuestad 45 Units at 12/30/17 0745 [...] Radha Ebonie Adams) Thuestad 30 mg at 12/30/17 0746 nitroglycerin sublingual 0.4 mg tab(s) (NITROQUICK) 0.4 mg SUBLINGUAL q 5 MIN PRN Radha Adams) Thuestad 0.9% NaCl 3-5 mL 3-5 mL INTRAVENOUS q 12 H Radha Loomis Md Thuestad 5 mL at 12/30/172129 benzonatate 100 mg cap(s) (TESSALON PERLE) 100 mg ORAL TID Hareesh Singam 100 mg at 12/30/172117 insulin lispro injection (rapid acting) (HumaLOG) SUBCUTANEOUS w MEALS Caroline (Pickling Tank Operator) Garcia 8 Units at 12/30/17 0746 insulin lispro injection (rapid acting) (HumaLOG) SUBCUTANEOUS AT BEDTIME Caroline (Pickling Tank Operator) Garcia 4 Units at 12/30/17 2117 Allergies: [...] December 31, 2017 TIME: 7:04 AM CSN: [id number] CBC Collected: 12/31/2017 Status: F Source: READING 3:48 AM [facility] OTHER CAMPUS REPOSITORY TYPE CODE TESTS RESULT [...] Performed By: #### CBC, BMP, MG1 #### [facility] [address] [place] [address] BASIC METABOLIC PANL Collected: 12/31/2017 Status: F Source: READING 3:48 AM [facility] REPOSITORY TYPE CODE TESTS RESULT OUT OF REFERENCE UNITS RANGE LAB GLU 74-99 mg/dL High Glucose 336 Result Comment: The [place] Diabetes Association (ADA) provides guidance for cutoff [...] Standards of Medical Care in Diabetes 2016, [place] Diabetes Association. Diabetes Care. 2016.39(Suppl 1). LAB [...] has been calibrated to be traceable to IDNV. An eGFR <60 mL/min/1.73m2 for >3 months is consistent with chronic kidney disease. Refer to KDOQI guidelines for clinical interpretation. In patients with unstable renal function, e.g. those with acute kidney injury, the eGFR may not accurately reflect actual GFR. Performed By: #### CBC, BMP, MG1 #### [facility] [address] [place], [place] [id number] MAGNESIUM Collected: 12/31/2017 Status: F Source: READING 3:48 AM [facility] REPOSITORY TYPE CODE TESTS RESULT OUT OF REFERENCE UNITS RANGE LAB MG 1.7-2.3 mg/dL High Magnesium 2.6 Performed By: #### CBC, BMP, MG1 #### [facility] [address] [place] [phone] OPERATIVE NO Observed: 12/31/2017 Status: COMPLETED Source: READING 12:00 AM [facility] REPOSITORY HNO ID: [id number] Author: Mara Hernandez Service: (none) Author Type: Physician Type: Operative Report Filed: 01/03/2018 10:48 AM Note Text: [facility]- Operative Report BACA LUZ G : 1940 AGE: 77 SEX: F ACCTNUM: [id number] [facility]: [facility] LOCATION: [facility] ATTENDING PHYSICIAN: PEYMAN GUERRERO DATE OF PROCEDURE: 12/31/2017 SURGEON: Mara Hernandez M.D. CLIMATOLOGY TEACHER: NONE ANESTHESIA: PREOPERATIVE DIAGNOSIS(ES): The patient with [...] retained food limited mucosal views to a dlfk-ia-fbjrpkoi degree. Within the limits of visualization, the [...] At this point, a very well lubricated 58-Kittitian dilator was advanced into the esophagus and with no resistance. This was removed and a well lubricated 60-Kittitian Romano dilator was advanced and met with [...] of solid material. Mara Hernandez M.D. Gastroenterology DBM:[id number] /[id number] CASE MANAGEM Observed: 12/30/2017 Status: COMPLETED Source: READING 3:25 PM [facility] REPOSITORY HNO ID: [id number] Author: Radha Bar (Sw) Service: Care Management Author Type: Director Of Labor And Delivery Type: Care Mgt Progress Note Filed: 12/30/2017 3:50 PM Note Text: CARE MANAGEMENT PROGRESS NOTE SERVICE DATE: 12/30/2017 SERVICE TIME: 3:15PM LOS: 7 days Patient requesting new hospital bed. Currently has bed that was obtained while she was living in [place] in 2013. Patient states it is broken. RX obtained from and referral sent to [employer]. Awaiting response. SIGNATURE: TAMELA Olson PATIENT NAME: Luz Baca DATE: December 30, 2017 TIME: 3:25 PM PAGER/CONTACT #: [phone] PROGRESS Observed: 12/30/2017 Status: COMPLETED Source: READING 2:15 PM [facility] REPOSITORY HNO ID: [id number] Author: Peyman Guerrero Service: Hospital Medicine Author Type: Physician Type: Progress Notes Filed: 12/30/2017 2:23 PM Note Text: HOSPITAL MEDICINE PROGRESS NOTE Name: Luz Baca SERVICE DATE: 12/30/2017 SERVICE TIME: 2:15 PM LOCATION / ROOM: [facility]0317/[id number] Hospital Medicine/Primary Attending: Peyman guerrero MD NIGHT COVERAGE BETWEEN 5.30P-7.30A Page [phone] ASSESSMENT AND PLAN HCAP (healthcare-associated pneumonia), suspected [...] infusion 100 mL/hr INTRAVENOUS (PACU) CONTINUOUS Mandy (Pickling Tank Operator) [place] nystatin 5 mL oral liquid (MYCOSTATIN) [...] (rapid acting) (HumaLOG) SUBCUTANEOUS w MEALS Caroline (Pickling Tank Operator) Garcia 8 Units at 12/30/17 0746 insulin lispro injection (rapid acting) (HumaLOG) SUBCUTANEOUS AT BEDTIME Caroline (Pickling Tank Operator) Garcia 2 Units at 12/29/172010 OBJECTIVE PHYSICAL [...] Patient is already anti-coagulated. Disposition: Home with [facility] PT Plan of care discussed with: Patient and RN SIGNATURE: Peyman guerrero MD DATE: December 30, 2017 TIME: 2:23 AM CONSULT PROG Observed: 12/30/2017 Status: COMPLETED Source: READING 1:35 PM CLINIC OTHER CAMPUS REPOSITORY HNO ID: [id number] Author: Max Reynolds Service: Infectious Disease Author [...] NURSING PROG Observed: 12/30/2017 Status: COMPLETED Source: READING 1:20 PM [facility] REPOSITORY HNO ID: [id number] Author: Chantelle Dobson RN Service: Nursing Author Type: Registered Nurse Type: Nursing Progress Note Filed: 12/30/2017 1:20 PM Note Text: Nursing Progress Note Patient Name: Luz Franco Keven Patient Location: [place] [address]/[id number] Daily Note: 1245- Patient requesting nystatin oral for thrush. Dr Cesar ramos. This note was completed by: Chantelle Dobson RN CASE MANAGEM Observed: 12/30/2017 Status: COMPLETED Source: READING 10:28 AM [facility] REPOSITORY HNO ID: [id number] Author: Radha Bar (Sw) Service: Care Management Author Type: Director Of Labor And Delivery Type: Care Mgt Progress Note Filed: 12/30/2017 10:29 AM Note Text: CARE MANAGEMENT PROGRESS NOTE SERVICE DATE: 12/30/2017 SERVICE TIME: 10:20am LOS: 7 days EMR reviewed. Scheduled for EGD tomorrow. Updates sent to [facility]. SIGNATURE: TAMELA Olson PATIENT NAME: Luz Franco Baca DATE: December 30, 2017 TIME: 10:28 AM PAGER/CONTACT #: [phone] THERAPY NT Observed: 12/30/2017 Status: COMPLETED Source: READING 9:28 AM CLINIC OTHER CAMPUS REPOSITORY HNO ID: [id number] Author: Mary Nieto Service: Physical Therapy Author Type: Cnc Field Service Engineer Type: Therapy (PT/OT/Speech/Resp) Filed: 12/30/2017 9:34 AM Note Text: Attestation signed by Elsy Lees at 12/31/2017 9:58 AM I reviewed and agree with the documentation corresponding to this therapy visit. SIGNATURE: Elsy Lees PT DATE: December 31, 2017 TIME: 9:58 AM Physical Therapy Treatment SERVICE DATE: 12/30/2017 SERVICE TIME: 822 to 11 ROOM: [place] [address] Recommended Discharge Disposition: Home PT Recommended Discharge [...] Diagnosis: Reduced mobility-other Interventions Provided: Therapeutic Exercise (73679);Therapeutic Activity (54645);Gait Training (61442) Therapeutic Exercise (33596) Treatment Minutes: 15 1 unit Skilled Intervention(s): Instruction in standing therapeutic exercise for bilateral heel/toe raises, hip abduction/adduction, marching and hamstring curls x 10 reps each Verbal and tactile cuing provided for correct performance of exercises Therapeutic Activity (80330) Treatment Minutes: 3 0 units Skilled Intervention(s): Instruction in sit to stand technique with proper hand placement and body positioning at edge of bed/chair Instruction in stand to sit technique with lower extremities touching chair/bed and reaching back for surface Discussed with patient possibility of obtaining new hospital bed for home going. Discussed with case resolution specialist. Gait Training (43051) Treatment Minutes: 30 2 units Skilled Intervention(s): Instruction in sequencing, gait pattern, reciprocating steps Instruction in correction of gait deviations, cues for upright posture, safety, and diaphragmatic breathing Instruction in stair negotiation, ksam-qo-iwrt. Cues provided for safety. Instruction in use [...] any further questions, concerns or needs from PSYCHOLOGICAL OPERATIONS at this time. Gait belt in place [...] SIGNATURE: Mary Nieto PTA PATIENT NAME: Luz aBca DATE: December 30, 2017 TIME: 9:28 AM PAGER/CONTACT #: [phone] CONSULT PROG Observed: 12/30/2017 Status: COMPLETED Source: READING 9:20 AM CLINIC OTHER CAMPUS REPOSITORY HNO ID: [id number] Author: Mara Hernandez Service: Gastroenterology Author Type: [...] Magnesium - Attempt to obtain records from [facility] in [place] INTERVAL HPI: Patient reports feeling well this [...] No dentition. EYES: No scleral icterus SKIN: [place] in color. No jaundice LUNGS: Diminished to [...] 2.5* 2.7* Liver Function, Amylase, AND Lipase [facility] LABS: Component 07/14/2004 07/25/2004 09/23/2010 05/17/2017 10/27/2017 [...] surrounding procedures. Believes they were completed at [facility] in [facility] ? SIGNATURE: Mandy Yanez CNP DATE: December 30, 2017 TIME: 9:20 AM Patient seen and examined. Discussed with mid level provider. Aguilera findings confirmed. Plan as outlined. Dysphagia and GE junction narrowing. EGD w dilatation in am. Mara Hernandez MD December 30, 2017 10:43 AM NURSING PROG Observed: 12/30/2017 Status: COMPLETED Source: READING 5:35 AM CLINIC OTHER CAMPUS REPOSITORY HNO ID: [id number] Author: Saul Leger (Rn) ALLYSON Hernandez Service: (none) Author Type: Registered Nurse Type: Nursing Progress Note Filed: 12/30/2017 5:36 AM Note Text: Nursing Progress Note Patient Name: Luz Baca Patient Location: [id number] Daily Note: 0535 - Dr. Wick notified of pts elevated potassium level; no new orders at this time; will continue to monitor This note was completed by: Saul Hernandez RN CBC Collected: 12/30/2017 Status: F Source: READING 3:45 AM [facility] OTHER CAMPUS REPOSITORY TYPE CODE TESTS RESULT [...] Performed By: #### CBC, BMP, MG1 #### [facility] [address] [facility] [phone] BASIC METABOLIC PANL Collected: 12/30/2017 Status: F Source: READING 3:45 AM [facility] OTHER [place] REPOSITORY TYPE CODE TESTS RESULT OUT OF REFERENCE UNITS RANGE LAB GLU 74-99 mg/dL High Glucose 203 Result Comment: The [place] Diabetes Association (ADA) provides guidance for cutoff [...] Standards of Medical Care in Diabetes 2016, [place] [employer]. Diabetes Care. 2016.39(Suppl 1). LAB [...] Performed By: #### CBC, BMP, MG1 #### [facility] [address] [place], [place] [phone] MAGNESIUM Collected: 12/30/2017 Status: F Source: READING 3:45 AM [facility] REPOSITORY TYPE CODE TESTS RESULT OUT OF REFERENCE UNITS RANGE LAB MG 1.7-2.3 mg/dL High Magnesium 2.6 Performed By: #### CBC, BMP, MG1 #### [facility] [address] [place], [place] [id number] THERAPY NT Observed: 12/29/2017 Status: COMPLETED Source: READING 3:33 PM [facility] REPOSITORY HNO ID: [id number] Author: Keren (Veterinarian Assistant) [place] Service: Speech/Swallow Author Type: Speech Language Pathologist Type: Therapy (PT/OT/Speech/Resp) Filed: 12/29/2017 3:37 PM Note Text: Speech Therapy Treatment SERVICE DATE: 12/29/2017 SERVICE TIME: 1425 to 1445 ROOM: [place] [address] Nursing Recommendations: Reinforce use of swallowing strategies [...] Dysphagia, pharyngoesophageal phase Interventions Provided: Dysphagia Therapy (13280) $ Dysphagia Therapy (12114) Billed Units: 1 unit Skilled Interventions: Provided [...] for this therapy evaluation/treatment. SIGNATURE: Keren Mcadams CCC-NOTEMAN PATIENT NAME: Luz Baca DATE: December 29, 2017 TIME: 3:33 PM PAGER: [phone] THERAPY NT Observed: 12/29/2017 Status: COMPLETED Source: READING 2:39 PM CLINIC OTHER CAMPUS REPOSITORY HNO ID: [id number] Author: Mary Nieto Service: Physical Therapy Author Type: Cnc Field Service Engineer Type: Therapy (PT/OT/Speech/Resp) Filed: 12/29/2017 2:47 PM Note Text: Attestation signed by Elsy Lees at 12/31/2017 10:00 AM I reviewed and agree with the documentation corresponding to this therapy visit. SIGNATURE: Elsy Lees PT DATE: December 31, 2017 TIME: 10:00 AM Physical Therapy Treatment SERVICE DATE: 12/29/2017 SERVICE TIME: 1339 to 1410 ROOM: [place] [address] Recommended Discharge Disposition: Home PT Recommended Discharge [...] Diagnosis: Reduced mobility-other Interventions Provided: Therapeutic Exercise (60224);Therapeutic Activity (67455);Gait Training (14420) Therapeutic Exercise (22672) Treatment Minutes: 10 1 unit Skilled Intervention(s): Instruction in standing therapeutic exercise for bilateral heel/toe raises, hip abduction/adduction, marching, and hamstring curls (not performed on R LE secondary to fatigue) x 10 reps each Verbal and tactile cuing provided for correct performance of exercises Therapeutic Activity (92009) Treatment Minutes: 6 0 units Skilled Intervention(s): Instruction in sit to stand technique with proper hand placement and body positioning at edge of bed/chair Instruction in stand to sit technique with lower extremities touching chair/bed and reaching back for surface Patient educated in importance of out of bed activity for rehabilitation and to prevent functional decline. Gait Training (09201) Treatment Minutes: 15 1 unit Skilled Intervention(s): [...] and Moving Around Current Status (G8978): CJ (12/28/17 09) $ Mobility: Walking and Moving Around Goal [...] I can. Patient appropriate for PT per Chantelle VALADEZ. [...] any further questions, concerns or needs from PSYCHOLOGICAL OPERATIONS at this time. Gait belt in place [...] 29, 2017 TIME: 2:39 PM PAGER/CONTACT #: [phone] CONSULT PROG Observed: 12/29/2017 Status: COMPLETED Source: [place] 1:28 PM CLINIC OTHER CAMPUS REPOSITORY HNO ID: [id number] Author: Max Reynolds Service: Infectious Disease Author [...] Pager: CONSULT Observed: 12/29/2017 Status: COMPLETED Source: [place] 12:56 PM CLINIC OTHER CAMPUS REPOSITORY HNO ID: [id number] Author: Mara Hernandez Service: Gastroenterology Author Type: [...] obesity and sleep apnea who presented to [facility] on 12/23/2017 with pneumonia. Due to the [...] BM daily. The patient was hospitalized in [place] for what sounds to be a lower [...] No dentition. EYES: No scleral icterus SKIN: [place] in color. No jaundice LUNGS: Diminished to [...] surrounding procedures. Believes they were completed at [facility] in [facility] ASSESSMENT 1. Chronic worsening dysphagia 2. [...] Magnesium - Attempt to obtain records from [facility] in [place] Thank you for the opportunity to participate [...] XR ESOPHAGRAM Observed: 12/29/2017 Status: F Source: [place] 11:32 AM [facility] REPOSITORY * * *Final Report* * * [...] with endoscopy recommended No aspiration was seen Top Lift Cutter: PSCB Transcribe Date/Time: Dec 29 2017 12:01P Dictated by : ELLA FRY DO This examination was interpreted and the report reviewed and electronically signed by: ELLA FRY DO on Dec 29 2017 12:02PM EST [id number] PROGRESS Observed: 12/29/2017 Status: COMPLETED Source: [place] 11:28 AM [facility] REPOSITORY HNO ID: [id number] Author: Peyman Cesar Service: Hospital Medicine Author Type: Physician Type: Progress Notes Filed: 12/29/2017 11:37 AM Note Text: HOSPITAL MEDICINE PROGRESS NOTE Name: Luz Baca SERVICE DATE: 12/29/2017 SERVICE TIME: 11:29 AM LOCATION / ROOM: [place] [address]/[id number] Hospital Medicine/Primary Attending: Peyman guerrero MD NIGHT COVERAGE BETWEEN 5.30P-7.30A Page [phone] ASSESSMENT AND PLAN HCAP (healthcare-associated pneumonia), suspected [...] BID Radha Adams) Thuestad 600 mg at 12/29/17 0822 [...] mg tab(s) (IMDUR) 30 mg ORAL DAILY [place] Ebonie Adams) Thuestad 30 mg at 12/29/17 0822 nitroglycerin sublingual 0.4 mg tab(s) (NITROQUICK) 0.4 mg SUBLINGUAL q 5 MIN PRN Radha Adams) Thuestad 0.9% NaCl 3-5 mL 3-5 mL INTRAVENOUS q 12 H [place] Ebonie Adams) Thuestad 5 mL at 12/29/17 0825 furosemide 40 mg injection (LASIX) 40 mg INTRAVENOUS DAILY Radhaebonie Adams) Thuestad 40 mg at 12/29/17 0822 benzonatate 100 mg cap(s) (TESSALON PERLE) 100 mg ORAL TID Hareesh Singam 100 mg at 12/29/17 0821 insulin lispro injection (rapid acting) (HumaLOG) SUBCUTANEOUS w MEALS Caroline (Pickling Tank Operator) Garcia 2 Units at 12/29/17 0825 insulin lispro injection (rapid acting) (HumaLOG) SUBCUTANEOUS AT BEDTIME Caroline (Pickling Tank Operator) Garcia 4 Units at 12/28/172014 OBJECTIVE PHYSICAL [...] Patient is already anti-coagulated. Disposition: Home with [facility] PT Plan of care discussed with: Patient and pre owned sales consultant SIGNATURE: Peyman guerrero MD DATE: December 29, 2017 TIME: 11:34 AM CBC Collected: 12/29/2017 Status: F Source: [place] 3:12 AM CLINIC OTHER CAMPUS REPOSITORY TYPE [...] Performed By: #### CBC, BMP, MG1 #### [facility] [address] [facility] [phone] BASIC METABOLIC PANL Collected: 12/29/2017 Status: F Source: [place] 3:12 AM [facility] OTHER CAMPUS REPOSITORY TYPE CODE TESTS RESULT OUT OF REFERENCE UNITS RANGE LAB GLU 74-99 mg/dL High Glucose 145 Result Comment: The [place] Diabetes Association (ADA) provides guidance for cutoff [...] Standards of Medical Care in Diabetes 2016, [place] [employer]. Diabetes Care. 2016.39(Suppl 1). LAB [...] Performed By: #### CBC, BMP, MG1 #### [facility] [address] [facility] [phone] MAGNESIUM Collected: 12/29/2017 Status: F Source: [place] 3:12 AM CLINIC OTHER CAMPUS REPOSITORY TYPE CODE TESTS RESULT OUT OF REFERENCE UNITS RANGE LAB MG 1.7-2.3 mg/dL High Magnesium 2.5 Performed By: #### CBC, BMP, MG1 #### [facility] [address] [facility] [phone] THERAPY NT Observed: 12/28/2017 Status: COMPLETED Source: [place] 4:18 PM CLINIC OTHER CAMPUS REPOSITORY HNO ID: [id number] Author: Shakila De La Rosa/Magali Busch Service: Occupational Therapy Author Type: Occupational Therapist Type: Therapy (PT/OT/Speech/Resp) Filed: 12/29/2017 5:49 AM Note Text: Occupational Therapy Evaluation SERVICE DATE: 12/28/2017 SERVICE TIME: 1320 to 1416 (split session for RT; 7339-7500, 5407-1014) ROOM: [place] [address] Recommended Discharge Disposition: Home OT Recommended Discharge [...] Patient TREATMENT INTERVENTIONS: Interventions Provided: Evaluation;Therapeutic Activity (76658);Self Skilled Nursing Management (89203) $ Evaluation-Low (10956) Billed Units: 1 unit Therapeutic Activity (64691) Treatment Minutes: 9 1 unit Skilled Intervention(s): [...] handles during first sit to stand. Self Skilled Nursing Management (24405) Treatment Minutes: 15 1 unit Skilled Intervention(s): [...] December 28, 2017 TIME: 4:18 PM PAGER: [phone] CONSULT PROG Observed: 12/28/2017 Status: COMPLETED Source: [place] 3:35 PM CLINIC OTHER CAMPUS REPOSITORY HNO ID: [id number] Author: Max Reynolds Service: Infectious Disease Author [...] Pager: PROGRESS Observed: 12/28/2017 Status: COMPLETED Source: [place] 2:25 PM CLINIC OTHER CAMPUS REPOSITORY HNO ID: [id number] Author: Peyman Guerrero Service: Hospital Medicine Author Type: Physician Type: Progress Notes Filed: 12/28/2017 2:29 PM Note Text: HOSPITAL MEDICINE PROGRESS NOTE Name: Luz Baca SERVICE DATE: 12/28/2017 SERVICE TIME: 2:25 PM LOCATION / ROOM: [place] [address]/[place] [address] Hospital Medicine/Primary Attending: Peyman guerrero MD NIGHT COVERAGE BETWEEN 5.30P-7.30A Page [phone] ASSESSMENT AND PLAN HCAP (healthcare-associated pneumonia) Feels [...] Radha Loomis Md Thuestad 600 mg at 12/28/17 0834 ipratropium-albuterol 3 mL nebulizer solution (DUONEB) 3 mL INHALATION q 4 H while awake Radha Adams) Thuestad 3 mL at 12/28/17 1336 colchicine 0.6 mg tab(s) 0.6 mg ORAL DAILY Radha Loomis Md Thuestad 0.6 mg at 12/28/17 0836 apixaban 5 mg tab(s) (ELIQUIS) 5 mg ORAL BID Radha Loomis Md Thuestad 5 mg at 12/28/17 0835 insulin lispro 10 Units injection (rapid acting) (HumaLOG) 10 Units SUBCUTANEOUS TID w MEALS Radha Loomis Md Thuestad 10 Units at 12/28/17 1206 insulin glargine 45 Units injection (long acting) (LANTUS) 45 Units SUBCUTANEOUS DAILY (8 AM) Radha Loomis Md Thuestad 45 Units at 12/27/17 0809 insulin glargine 30 Units injection (long acting) (LANTUS) 30 Units SUBCUTANEOUS AT BEDTIME [place] A (Md) Thuestad 30 Units at 12/27/17 2046 guaiFENesin-dextromethorphan 100-10 mg/5 mL 5-10 mL oral liquid (ROBITUSSIN DM) 5-10 mL ORAL q 6 H PRN Radha Adams) Thuestad 10 mL at 12/26/17 0813 potassium chloride ER 10 mEq tab(s) (K-DUR, KLOR-CON) 10 mEq ORAL DAILY Radha Adasm) Thuestad 10 mEq at 12/28/17 0835 spironolactone 25 mg tab(s) (ALDACTONE) 25 mg ORAL DAILY Radha Adams) Thuestad 25 mg at 12/28/[address] 40 mg tab(s) (PROTONIX) 40 mg ORAL DAILY (6 AM) Radha Adams) Thuestad 40 mg at 12/28/17 0535 isosorbide mononitrate ER 30 mg tab(s) (IMDUR) 30 mg ORAL DAILY Radha Loomis Md Thuestad 30 mg at 12/28/17 0836 nitroglycerin sublingual 0.4 mg tab(s) (NITROQUICK) 0.4 mg SUBLINGUAL q 5 MIN PRN Radha Mazauestad 0.9% NaCl 3-5 mL 3-5 mL INTRAVENOUS q 12 H Radha Loomis Md Thuestad 5 mL at 12/28/17 0838 furosemide 40 mg injection (LASIX) 40 mg INTRAVENOUS DAILY Radha Loomis Md Thuestad 40 mg at 12/28/17 0836 benzonatate 100 mg cap(s) (TESSALON PERLE) 100 mg ORAL TID Hareesh Singam 100 mg at 12/28/17 1205 insulin lispro injection (rapid acting) (HumaLOG) SUBCUTANEOUS w MEALS Caroline (Pickling Tank Operator) Garcia 6 Units at 12/28/17 1206 insulin lispro injection (rapid acting) (HumaLOG) SUBCUTANEOUS AT BEDTIME Caroline (Pickling Tank Operator) Garcia 2 Units at 12/26/172041 OBJECTIVE PHYSICAL [...] Patient is already anti-coagulated. Disposition: Home with [facility] PT Plan of care discussed with: [...] pathology report for complete findings of exam. Top Lift Cutter: SALINAS Transcribe Date/Time: Dec 28 2017 12:45P Dictated by : JEFF GONCALVES MD This examination was interpreted and the report reviewed and electronically signed by: JEFF GONCALVES MD on Dec 28 2017 12:46PM EST [id number] THERAPY NT Observed: 12/28/2017 Status: COMPLETED Source: [place] 11:30 AM CLINIC OTHER CAMPUS REPOSITORY HNO ID: [id number] Author: Gay (Veterinarian Assistant) Margarita Jack CCC/NOTEMAN Service: Speech/Swallow Author Type: Speech Language Pathologist Type: Therapy (PT/OT/Speech/Resp) Filed: 12/28/2017 2:42 PM Note Text: Speech Therapy MBSS Evaluation SERVICE DATE: 12/28/2017 SERVICE TIME: 1130 to 1200 ROOM: [id number] Nursing Recommendations: Reinforce use of swallowing strategies;Utilize [...] Lateral position MBS Consistencies Tested: Thin Barium Liquids;Witmer Thick Barium Liquids;Puree With Barium Paste;Soft Solid [...] phase Interventions Provided: Modified Barium Swallow Study (81980);Dysphagia Therapy (82556) $ Modified Barium Swallow Study (05551) Billed Units: 1 unit $ Dysphagia Therapy (11901) Billed Units: 1 unit Skilled Interventions: Instructed [...] for this therapy evaluation/treatment. SIGNATURE: Gay Jack CCC-NOTEMAN PATIENT NAME: Luz Baca DATE: December 28, 2017 TIME: 2:36 PM PAGER: [phone] THERAPY NT Observed: 12/28/2017 Status: COMPLETED Source: [place] 9:17 AM CLINIC OTHER CAMPUS REPOSITORY O ID: [id number] Author: Elsy Lees Service: Physical Therapy Author Type: Physical Therapist Type: Therapy (PT/OT/Speech/Resp) Filed: 12/28/2017 11:31 AM Note Text: Physical Therapy Evaluation SERVICE DATE: 12/28/2017 SERVICE TIME: 916 to 958 ROOM: [place] [address] Recommended Discharge Disposition: Home PT Recommended Discharge [...] Diagnosis: Reduced mobility-other Interventions Provided: Evaluation;Therapeutic Activity (10632);Gait Training (34977) $ Evaluation-Low (00136) Billed Units: 1 unit Therapeutic Activity (63222) Treatment Minutes: 15 1 unit Skilled Intervention(s): [...] in discharge recommendation and rationale Gait Training (21807) Treatment Minutes: 12 1 unit Skilled Intervention(s): [...] NURSING PROG Observed: 12/28/2017 Status: COMPLETED Source: [place] 8:42 AM [facility] REPOSITORY HNO ID: [id number] Author: Amarjit OsheaRn) ALLYSON Clay Service: (none) Author Type: Registered Nurse Type: Nursing Progress Note Filed: 12/28/2017 9:59 AM Note Text: Nursing Progress Note Patient Name: Luz Baca Patient Location: [id number] Daily Note: 0840- Pt glucose was 56. Gave OJ and isma crackers. Glucose up to 95. Held all insulin, left message for hospitalist. Waiting on return phone call [phone] with Cesar Richard. Alerted him that I held all insulin. No new orders for the pt. This note was completed by: Amarjit Clay RN NURSING PROG Observed: 12/28/2017 Status: COMPLETED Source: READ[place] 4:40 AM [facility] REPOSITORY HNO ID: [id number] Author: Sofya OsheaRn) ALLYSON De Service: (none) Author Type: Registered Nurse Type: Nursing Progress Note Filed: 12/28/2017 4:42 AM Note Text: Nursing Progress Note Patient Name: Luz Baca Patient Location: [id number] Daily Note:0433- 6 beat run of vtach, pt states she does feel a slight flutter in her chest and some mild nausea, call out to notify hospitalist Dr Wick no new orders. This note was completed by: Sofya De RN CBC Collected: 12/28/2017 Status: F Source: READ[place] 3:09 AM [facility] OTHER CAMPUS REPOSITORY TYPE CODE TESTS RESULT [...] Performed By: #### CBC, BMP, MG1 #### [facility] [address] [place] [address] BASIC METABOLIC PANL Collected: 12/28/2017 Status: F Source: READ[place] 3:09 AM [facility] REPOSITORY TYPE CODE TESTS RESULT OUT OF REFERENCE UNITS RANGE LAB GLU 74-99 mg/dL High Glucose 161 Result Comment: The [place] [employer] Association (ADA) provides guidance for cutoff [...] Standards of Medical Care in Diabetes 2016, [place] [employer]. Diabetes Care. 2016.39(Suppl 1). LAB [...] Performed By: #### CBC, BMP, MG1 #### [facility] [address] [place] [address] MAGNESIUM Collected: 12/28/2017 Status: F Source: [place] 3:09 AM [facility] REPOSITORY TYPE CODE TESTS RESULT OUT OF REFERENCE UNITS RANGE LAB MG 1.7-2.3 mg/dL High Magnesium 2.7 Performed By: #### CBC, BMP, MG1 #### [facility] [address] [place] [phone] PLAN OF CARE Observed: 12/27/2017 Status: COMPLETED Source: [place] 3:17 PM [facility] REPOSITORY HNO ID: [id number] Author: Max Reynolds Service: Infectious Disease Author Type: Physician Type: Plan of Care Filed: 12/27/2017 3:17 PM Note Text: Consult Dictated. Please call with questions. Will follow with you. Thank you. Max Reynolds MD Pager: [phone] Date: 12/27/2017 Time: 3:17 PM PT ED Observed: 12/27/2017 Status: COMPLETED Source: [place] 2:47 PM CLINIC OTHER CAMPUS REPOSITORY O ID: [id number] Author: Akua Muller (Engineering Technician) Service: Pharmacy Author Type: Pharmacist Type: Patient [...] HF patient education packet SIGNATURE: AKUA MULLER, PLANT PATHOLOGIST PAGER: [phone] PT ED Observed: 12/27/2017 Status: COMPLETED Source: [place] 2:45 PM CLINIC OTHER CAMPUS REPOSITORY [facility] ID: [id number] Author: Akua Muller (Engineering Technician) Service: Pharmacy Author Type: Pharmacist Type: Patient [...] [facility] INFORMATION SIGNATURE: AKUA MULLER, PLANT PATHOLOGIST PAGER: [phone] PROGRESS Observed: 12/27/2017 Status: COMPLETED Source: [place] 1:40 PM CLINIC OTHER CAMPUS REPOSITORY [facility] ID: [id number] Author: Peyman Guerrero Service: Hospital Medicine Author Type: Physician Type: Progress Notes Filed: 12/27/2017 1:50 PM Note Text: HOSPITAL MEDICINE PROGRESS NOTE Name: Luz Baca SERVICE DATE: 12/27/2017 SERVICE TIME: 1:40 PM LOCATION / ROOM: [place] [id number] Hospital Medicine/Primary Attending: Peyman guerrero MD NIGHT COVERAGE BETWEEN 5.30P-7.30A Page [phone] ASSESSMENT AND PLAN HCAP (healthcare-associated pneumonia) Feeling [...] acting) (LANTUS) 30 Units SUBCUTANEOUS AT BEDTIME [place]bonie Adams) Thuestad 30 Units at 12/26/17 2041 guaiFENesin-dextromethorphan 100-10 mg/5 mL 5-10 mL oral liquid (ROBITUSSIN DM) 5-10 mL ORAL q 6 H PRN [place] Ebonie Adams) Thuestad 10 mL at 12/26/17 0813 potassium chloride ER 10 mEq tab(s) (K-DUR, KLOR-CON) 10 mEq ORAL DAILY Radha Ebonie Adams) Thuestad 10 mEq at 12/27/17 0809 spironolactone 25 mg tab(s) (ALDACTONE) 25 mg ORAL DAILY Radhaebonie Adams) Thuestad 25 mg at 12/27/17 0809 [...] mg injection (LASIX) 40 mg INTRAVENOUS DAILY [place]ie Adams) Thuestad 40 mg at 12/27/17 0809 benzonatate 100 mg cap(s) (TESSALON PERLE) 100 mg ORAL TID Hareesh Singam 100 mg at 12/27/17 1305 insulin lispro injection (rapid acting) (HumaLOG) SUBCUTANEOUS w MEALS Caroline (Pickling Tank Operator) Garcia 2 Units at 12/27/17 1307 insulin lispro injection (rapid acting) (HumaLOG) SUBCUTANEOUS AT BEDTIME Caroline (Pickling Tank Operator) Garcia 2 Units at 12/26/172041 OBJECTIVE PHYSICAL [...] Patient is already anti-coagulated. Disposition: Home with [facility] Plan of care discussed with: Patient SIGNATURE: Radha Edmonds MD DATE: December 27, 2017 TIME: 1:50 PM CASE MANAGEM Observed: 12/27/2017 Status: COMPLETED Source: [place] 11:26 AM CLINIC OTHER CAMPUS REPOSITORY HNO ID: [id number] Author: Radha Bar (Sw) Service: Care Management Author Type: Director Of Labor And Delivery Type: Care Mgt Progress Note Filed: 12/27/2017 11:31 AM Note Text: CARE MANAGEMENT PROGRESS NOTE SERVICE DATE: 12/27/2017 SERVICE TIME: 11:20AM LOS: 4 days EMR reviewed and spoke with RN and MD. Cardiology now on consult. Received IV Lasix. Updated information sent to [facility]. Possible d/c today. CM continuing to follow. SIGNATURE: TAMELA Olson PATIENT NAME: Luz Baca DATE: December 27, 2017 TIME: 11:26 AM PAGER/CONTACT #: [phone] PLAN OF CARE Observed: 12/27/2017 Status: COMPLETED Source: [place] 10:31 AM CLINIC OTHER CAMPUS REPOSITORY O ID: [id number] Author: Evy Kilgore (Pharmacist) Service: Pharmacy Author Type: Pharmacist Type: Plan of Care Filed: 12/27/2017 10:32 AM Note Text: MEDICATION RECONCILIATION Patient Name:Josephine Baca : 1940 Reconciliation: Yes All PSYCHOLOGICAL OPERATIONS medications addressed by LIP Additional comments: N/A [...] Pentazocine - Pioglitazone Unknown - Propoxyphene Current PSYCHOLOGICAL OPERATIONS Medications: Prior to Admission medications as of [...] Kilgore, Pharmacist December 27, 2017 10:32 AM OPERATIVE NO Observed: 12/27/2017 Status: COMPLETED Source: [place] 9:50 AM [facility] OTHER [place] REPOSITORY HNO ID: [id number] Author: Eduardo Mccarty Service: Nutrition Therapy Author [...] METABOLIC PANL Collected: 12/27/2017 Status: F Source: [place] 6:00 AM [facility] OTHER [place] REPOSITORY TYPE CODE TESTS RESULT OUT OF REFERENCE UNITS RANGE LAB GLU 74-99 mg/dL High Glucose 235 Result Comment: The [place] Diabetes Association (ADA) provides guidance for cutoff [...] Standards of Medical Care in Diabetes 2016, [place] [employer]. Diabetes Care. 2016.39(Suppl 1). LAB [...] Performed By: #### BMP, MG1, CBC #### [facility] [address] [place] [address] MAGNESIUM Collected: 12/27/2017 Status: F Source: READ[place] 6:00 AM [facility] OTHER CAMPUS REPOSITORY TYPE CODE TESTS RESULT OUT OF REFERENCE UNITS RANGE LAB MG 1.7-2.3 mg/dL High Magnesium 2.5 Performed By: #### BMP, MG1, CBC #### [facility] [address] [place] [address] CBC Collected: 12/27/2017 Status: F Source: READ[place] 6:00 AM CLINIC OTHER CAMPUS REPOSITORY TYPE [...] Performed By: #### BMP, MG1, CBC #### [facility] [address] [facility] [phone] CONSULT Observed: 12/27/2017 Status: COMPLETED Source: [place] 12:00 AM CLINIC OTHER CAMPUS REPOSITORY HNO ID: [id number] Author: Max Reynolds Service: Infectious Disease Author Type: Physician Type: Consults Filed: 12/28/2017 9:27 AM Note Text: [facility]- Consultation BACA LUZ Salvador : 1940 AGE: 77 SEX: F ACCTNUM: [id number] [facility]: [facility] LOCATION: [address] ATTENDING PHYSICIAN: PEYMAN GUERRERO DATE OF CONSULTATION: 12/27/2017 REFERRING PHYSICIAN: Peyman Guerrero M.D. REASON FOR CONSULTATION: Recurrent pneumonia. HISTORY: The patient is a 77-year-old female with a history of chronic respiratory failure, on 2-1/2 L of oxygen at home, who was recently admitted to [facility] from 12/10/2017 to 12/15/2017 when she had [...] with the patient and her family. Max Reynodls M.D. Infectious Disease [id number] /[id number] PROGRESS Observed: 12/26/2017 Status: COMPLETED Source: [place] 3:13 PM CLINIC OTHER CAMPUS REPOSITORY O ID: [id number] Author: Radha Adams) Kendal Service: Hospital Medicine Author Type: Physician Type: Progress Notes Filed: 12/26/2017 3:18 PM Note Text: HOSPITAL MEDICINE PROGRESS NOTE Name: Luz Baca SERVICE DATE: 12/26/2017 SERVICE TIME: 3:13 PM LOCATION / ROOM: [place] [address]/[id number]- Hospital Medicine/Primary Attending: Radha Edmonds MD NIGHT COVERAGE BETWEEN 5.30P-7.30A Page [phone] ASSESSMENT AND PLAN HCAP (healthcare-associated pneumonia) Feeling [...] INTRAVENOUS q 12 H Radha Adams) Thuestad aspirin, enteric coated 81 mg tab(s) (ASPIRIN, [...] oral liquid (MYCOSTATIN) 200,000 Units ORAL QID [place] Ebonie Adams) Thuestad 2 mL at 12/26/17 1220 simvastatin 40 mg tab(s) (ZOCOR) 40 mg ORAL AT BEDTIME [place] Ebonie Adams) Thuestad 40 mg at 12/25/17 203 gabapentin 600 mg cap(s) (NEURONTIN) 600 mg ORAL BID Radha Ebonie Adams) Thuestad 600 mg at 12/26/17 0811 ipratropium-albuterol 3 mL nebulizer solution (DUONEB) 3 mL INHALATION q 4 H while awake [place] Ebonie Adams) Thuestad 3 mL at 12/26/17 1224 colchicine 0.6 mg tab(s) 0.6 mg ORAL DAILY [place] Ebonie Adams) Thuestad 0.6 mg at 12/26/17 [...] 5-10 mL ORAL q 6 H PRN [place] Ebonie Adams) Thuestad 10 mL at 12/26/17 0813 potassium chloride ER 10 mEq tab(s) (K-DUR, KLOR-CON) 10 mEq ORAL DAILY [place] A Bryan) Thuestad 10 mEq at 12/26/17 0811 spironolactone 25 mg tab(s) (ALDACTONE) 25 mg ORAL DAILY [place] A Bryan) Thuestad 25 mg at 12/26/17 [...] (rapid acting) (HumaLOG) SUBCUTANEOUS w MEALS Caroline (Pickling Tank Operator) Garcia 2 Units at 12/26/17 1221 insulin lispro injection (rapid acting) (HumaLOG) SUBCUTANEOUS AT BEDTIME Caroline (Pickling Tank Operator) Garcia 6 Units at 12/25/17 2042 OBJECTIVE [...] Patient is already anti-coagulated. Disposition: Home with [facility] Plan of care discussed with: Patient SIGNATURE: Radha Edmonds MD DATE: December 26, 2017 TIME: 3:13 PM CONSULT Observed: 12/26/2017 Status: COMPLETED Source: [place] 11:08 AM CLINIC OTHER CAMPUS REPOSITORY O ID: [id number] Author: Jose C Yeung Service: Clinical Cardiology [...] December 26, 2017 TIME: 11:09 AM PAGER: [phone] CONSULT: CARDIOLOGY SERVICE SERVICE DATE: 12/26/2017 CONSULTING PHYSICIAN: Jose C Yeung MD PCP: Jameson Kamara MD ATTENDING: Radha Adams) Kendal REASON FOR CONSULT: Shortness of Breath Subjective CHIEF COMPLAINT: Pulmonary infiltrate on chest x-ray [R91.8] HISTORY OF PRESENT ILLNESS: Ms. Baca is a 77 year old female who presents for respiratory failure, pneumonia, COPD, acute heart failure. She was recently admitted to [facility] and seen by Dr. Garcia. During [...] - CKD (chronic kidney disease), stage IV ([facility]) - COPD (chronic obstructive pulmonary disease) ([facility]) Dr. Cruz - Depression - Diabetes ([facility]) - Diabetic neuropathy ([facility]) - GERD (gastroesophageal reflux disease) - Gout - HH (hiatus hernia) - HOCM (hypertrophic obstructive cardiomyopathy) ([facility]) - HTN (hypertension) - Hyperlipidemia - Morbid obesity with BMI of 40.0-44.9, adult ([facility]) - Pacemaker - Pneumonia h/o pneumonia/bronchitis - Renal insufficiency 2003 post op - Sleep apnea 2011 not on CPAP, unable to tolerate mask 02/2017 - SVT (supraventricular tachycardia) ([facility]) NSVT and questionable VT in 2003 post [...] age 89, HTN - Heart Failure Mother PA - Cancer Father age 71, lung cancer [...] U-100 INSULIN) 100 unit/mL (3 mL) in 12/23/2017 at 0900 Yes Yes Sig: [...] 26, 2017 TIME: 10:21 PM PAGER/CONTACT #: [phone] CBC Collected: 12/26/2017 Status: F Source: [place] 6:01 AM [facility] OTHER [place] REPOSITORY TYPE CODE TESTS RESULT OUT OF [...] Performed By: #### CBC, MG1, BMP #### [facility] [address] [place], [place] [phone] MAGNESIUM Collected: 12/26/2017 Status: F Source: [place] 6:01 AM [facility] REPOSITORY TYPE CODE TESTS RESULT OUT OF REFERENCE UNITS RANGE LAB MG 1.7-2.3 mg/dL High Magnesium 2.5 Performed By: #### CBC, MG1, BMP #### [facility] [address] [place], [place] [phone] BASIC METABOLIC PANL Collected: 12/26/2017 Status: F Source: READ[place] 6:01 [facility] REPOSITORY TYPE CODE TESTS RESULT OUT OF REFERENCE UNITS RANGE LAB GLU 74-99 mg/dL High Glucose 438 Result Comment: The [place] Diabetes Association (ADA) provides guidance for cutoff [...] Standards of Medical Care in Diabetes 2016, [place] [employer]. Diabetes Care. 2016.39(Suppl 1). LAB [...] Performed By: #### CBC, MG1, BMP #### [facility] [address] [place] [address] NURSING PROG Observed: 12/25/2017 Status: COMPLETED Source: READING 7:30 PM CLINIC OTHER CAMPUS REPOSITORY [facility] ID: [id number] Author: Jennifer (Rn) ALLYSON Sevilla Service: (none) Author Type: Registered Nurse Type: Nursing Progress Note Filed: 12/25/2017 8:25 PM Note Text: Nursing Progress Note Patient Name: Luz Baca Patient [place] [facility] [id number] Daily Note: 1930 Resting in bed. States feels she is making only slight progress with breathing. Oxygen on 2 liters. Occasionally productive cough. Slight expiratory wheeze audible. This note was completed by: Jennifer Sevilla RN PROGRESS Observed: 12/25/2017 Status: COMPLETED Source: READING 1:28 PM CLINIC OTHER CAMPUS REPOSITORY HNO ID: [id number] Author: Radha Adams) Kendal Service: Hospital Medicine Author Type: Physician Type: Progress Notes Filed: 12/25/2017 3:28 PM Note Text: HOSPITAL MEDICINE PROGRESS NOTE Name: Luz Baca SERVICE DATE: 12/25/2017 SERVICE TIME: 1:28 PM LOCATION / ROOM: [place] [id number] Hospital Medicine/Primary Attending: Radha Edmonds MD NIGHT COVERAGE BETWEEN 5.30P-7.30A Page [phone] ASSESSMENT AND PLAN HCAP (healthcare-associated pneumonia) Feeling [...] mg cap(s) (NEURONTIN) 600 mg ORAL BID [place] Ebonie Adams) Thuestad 600 mg at 12/25/17 0813 ipratropium-albuterol 3 mL nebulizer solution (DUONEB) 3 mL INHALATION q 4 H while awake [place]lick[place]bonie Adams) Thuestad 3 mL at 12/25/17 1005 colchicine 0.6 mg tab(s) 0.6 mg ORAL DAILY Radha Ebonie Adams) Thuestad 0.6 mg at 12/25/17 0815 apixaban 5 mg tab(s) (ELIQUIS) 5 mg ORAL BID Radha Ebonie Adams) Thuestad 5 mg at 12/25/17 0815 predniSONE 40 mg tab(s) (DELTASONE) 40 mg ORAL DAILY [place] Ebonie Adams) Thuestad 40 mg at 12/25/17 [...] tab(s) (K-DUR, KLOR-CON) 10 mEq ORAL DAILY Radhaebonie Adams) Thuestad 10 mEq at 12/25/17 0814 spironolactone 25 mg tab(s) (ALDACTONE) 25 mg ORAL DAILY Radha Adams) Thuestad 25 mg at 12/25/[address] 40 mg tab(s) (PROTONIX) 40 mg ORAL DAILY (6 AM) Radha Adams) Thuestad 40 mg at 12/25/17 0604 isosorbide mononitrate ER 30 mg tab(s) (IMDUR) 30 mg ORAL DAILY Radha Adams) Thuestad 30 mg at 12/25/17 0815 [...] cap(s) (TESSALON PERLE) 100 mg ORAL TID [facility] Singam 100 mg at 12/25/17 1241 insulin lispro injection (rapid acting) (HumaLOG) SUBCUTANEOUS w MEALS Caroline (Pickling Tank Operator) Garcia 2 Units at 12/25/17 1243 insulin lispro injection (rapid acting) (HumaLOG) SUBCUTANEOUS AT BEDTIME Caroline (Pickling Tank Operator) Garcia OBJECTIVE PHYSICAL EXAM: BP 114/56 Pulse [...] Patient is already anti-coagulated. Disposition: Home with [facility] Plan of care discussed with: Patient SIGNATURE: Radha Edmonds MD DATE: December 25, 2017 TIME: 1:28 PM NURSING PROG Observed: 12/25/2017 Status: COMPLETED Source: READING 8:09 AM CLINIC OTHER CAMPUS REPOSITORY HNO ID: [id number] Author: Chantelle (Rn) Bronson, RN Service: Nursing Author Type: Registered Nurse Type: Nursing Progress Note Filed: 12/25/2017 8:11 AM Note Text: Nursing Progress Note Patient Name: Luz Baca Patient Location: [facility] [place]0317/[id number] Daily Note: 0809- Patient gluc 104. Patient has scheduled [address] Edmonds made aware and stated to only give 4 units. This note was completed by: Chantelle Dobson, RN CBC Collected: 12/25/2017 Status: F Source: READING 5:56 AM [facility] OTHER CAMPUS REPOSITORY TYPE CODE TESTS RESULT [...] Performed By: #### CBC, BMP, MG1 #### [facility] [address] [facility] [phone] BASIC METABOLIC PANL Collected: 12/25/2017 Status: F Source: READING 5:56 AM [facility] OTHER CAMPUS REPOSITORY TYPE CODE TESTS RESULT OUT OF REFERENCE UNITS RANGE LAB GLU 74-99 mg/dL High Glucose 144 Result Comment: The [place] Diabetes [employer] (ADA) provides guidance for cutoff [...] Standards of Medical Care in Diabetes 2016, [place] [employer]. Diabetes Care. 2016.39(Suppl 1). LAB [...] Performed By: #### CBC, BMP, MG1 #### [facility] [address] [place] [address] MAGNESIUM Collected: 12/25/2017 Status: F Source: READING 5:56 AM [facility] OTHER CAMPUS REPOSITORY TYPE CODE TESTS RESULT OUT OF REFERENCE UNITS RANGE LAB MG 1.7-2.3 mg/dL Magnesium 2.3 Performed By: #### CBC, BMP, MG1 #### [facility] [address] [place] [address] NUTRITION Observed: 12/24/2017 Status: COMPLETED Source: READING 5:52 PM CLINIC OTHER CAMPUS REPOSITORY HNO ID: [id number] Author: Eduardo Mccarty Service: Nutrition Therapy Author [...] PM PROGRESS Observed: 12/24/2017 Status: COMPLETED Source: [place] 4:11 PM [facility] OTHER [place] REPOSITORY HNO ID: [id number] Author: Vu Stein (Engineering Technician) Service: Pharmacy Author Type: Pharmacist Type: Progress [...] contact pharmacy if questions. Vu Stein, Pharm.D, Engineering Technician [phone] PROGRESS Observed: 12/24/2017 Status: COMPLETED Source: [place] 4:08 PM [facility] OTHER [place] REPOSITORY HNO ID: [id number] Author: Vu Stein (Engineering Technician) Service: Pharmacy Author Type: Pharmacist Type: Progress Notes Filed: 12/24/2017 4:11 PM Note Text: Antimicrobial Stewardship [id number] Patient: Luz Baca Age: [age] year old [...] care of this patient. Vu Stein, Pharm.D, Engineering Technician Fingernail Technician from the Antimicrobial Stewardship Team Pharmacy Extension: [phone] PROGRESS Observed: 12/24/2017 Status: COMPLETED Source: [place] 2:00 PM CLINIC OTHER CAMPUS REPOSITORY O ID: [id number] Author: Radha Adams) Kendal Service: Hospital Medicine Author Type: Physician Type: Progress Notes Filed: 12/25/2017 1:11 AM Note Text: HOSPITAL MEDICINE PROGRESS NOTE Name: Luz Baca SERVICE DATE: 12/24/2017 SERVICE TIME: 2:01 PM LOCATION / ROOM: [place] [address] [address] Hospital Medicine/Primary Attending: Radha Edmonds MD NIGHT COVERAGE BETWEEN 5.30P-7.30A Page [phone] ASSESSMENT AND PLAN HCAP (healthcare-associated pneumonia) Feeling [...] Radha Adams) Thuestad 2 g at 12/24/17 183 dextrose 40 % 15 g 15 g [...] BID Radha Adams) Thuestad 600 mg at 12/24/172127 ipratropium-albuterol 3 mL nebulizer solution (DUONEB) 3 mL INHALATION q 4 H while awake Radha Adams) Thuestad 3 mL at 12/24/17 204 colchicine 0.6 mg tab(s) 0.6 mg ORAL DAILY Radhaebonie Adams) Thuestad 0.6 mg at 12/24/17 0832 apixaban 5 mg tab(s) (ELIQUIS) 5 mg ORAL BID Radha Adams) Thuestad 5 mg at 12/24/17 2128 predniSONE 40 mg tab(s) (DELTASONE) 40 mg ORAL DAILY [place]lick[place]bonie Adams) Thuestad 40 mg at 12/24/17 0829 [...] (rapid acting) (HumaLOG) SUBCUTANEOUS w MEALS Caroline (Pickling Tank Operator) Garcia 8 Units at 12/24/17 1327 insulin lispro injection (rapid acting) (HumaLOG) SUBCUTANEOUS AT BEDTIME Caroline (Pickling Tank Operator) Garcia OBJECTIVE PHYSICAL EXAM: BP 130/53 Pulse [...] Patient is already anti-coagulated. Disposition: Home with [facility] Plan of care discussed with: Patient SIGNATURE: Radha Edmonds MD DATE: December 25, 2017 TIME: 1:01 AM [facility] PCR Collected: 12/24/2017 Status: F Source: READING 10:40 AM CLINIC OTHER CAMPUS REPOSITORY TYPE CODE TESTS RESULT OUT OF REFERENCE UNITS RANGE LAB [facility] Nasal S aureus Spec Source LAB MRSRES Negative for MRSA MRSA by PCR. PCR LAB SARES Negative for Staph Staphylococcus aureus PCR aureus by PCR. Performed By: #### SAPCR #### [facility] [address] [facility] [phone] [place] [address] [phone] CBC Collected: 12/24/2017 Status: F Source: READING 7:28 AM [facility] OTHER CAMPUS REPOSITORY TYPE CODE TESTS RESULT [...] Performed By: #### CBC, BMP, MG1 #### [facility] [address] [facility] [phone] BASIC METABOLIC PANL Collected: 12/24/2017 Status: F Source: READING 7:[address] [place] [address] OTHER [place] REPOSITORY TYPE CODE TESTS RESULT OUT OF REFERENCE UNITS RANGE LAB GLU 74-99 mg/dL High Glucose 371 Result Comment: The [place] Diabetes Association (ADA) provides guidance for cutoff [...] Standards of Medical Care in Diabetes 2016, [place] [employer]. Diabetes Care. 2016.39(Suppl 1). LAB [...] Performed By: #### CBC, BMP, MG1 #### [facility] [address] [place] [address] MAGNESIUM Collected: 12/24/2017 Status: F Source: READING 7:28 AM [facility] REPOSITORY TYPE CODE TESTS RESULT OUT OF REFERENCE UNITS RANGE LAB MG 1.7-2.3 mg/dL Magnesium 2.2 Performed By: #### CBC, BMP, MG1 #### [facility] [address] [place] [address] Observed: 12/24/2017 Status: F Source: [place] RESPIRATORY CULT/STAIN 6:25 AM [facility] OTHER [place] REPOSITORY Smear Result - Rare Mixed oral and respiratory mitra Moderate Polymorphonuclear leukocytes Culture Result - Few Normal respiratory mitra present Performed By: #### RCULST #### [facility] [address] [place] [place], [place] [address] PROGRESS Observed: 12/23/2017 Status: COMPLETED Source: READING 10:42 PM [facility] REPOSITORY HNO ID: [id number] Author: Rosi OsheaRn) ALLYSON Moralez Service: Nursing Author Type: Registered Nurse Type: Progress Notes Filed: 12/23/2017 10:42 PM Note Text: Nursing Progress Note Vital Human Services Program Specialist Assessment Note Patient Name: Luz Baca Patient [place] [id number] Patient Vitals in the past 4 hrs: [...] NURSING PROG Observed: 12/23/2017 Status: COMPLETED Source: READING 8:57 PM CLINIC OTHER CAMPUS REPOSITORY O ID: [id number] Author: Rosi Mulligan (Rn) ALLYSON Moralez Service: Nursing Author Type: Registered Nurse Type: Nursing Progress Note Filed: 12/23/2017 10:40 PM Note Text: Nursing Progress Note Patient Name: Luz Baca Patient Location: [facility] [place]/[id number] Daily Note:2054: Dr. Brown aware of blood sugar of 576. No new orders at this time. 2238: Dr. Brown notified of HR 41. No new orders at this time. This note was completed by: Rosi Moralez RN PROGRESS Observed: 12/23/2017 Status: COMPLETED Source: [place] 8:14 PM [facility] OTHER CAMPUS REPOSITORY [facility] ID: [id number] Author: Mara Potter (Pharmacist) Service: Pharmacy Author [...] NURSING PROG Observed: 12/23/2017 Status: COMPLETED Source: READ[place] 6:00 PM CLINIC OTHER CAMPUS REPOSITORY HNO ID: [id number] Author: Geraldo Raya (Rn) ALLYSON Mak Service: Nursing Author Type: Registered Nurse Type: Nursing Progress Note Filed: 12/23/2017 6:32 PM Note Text: Nursing Progress Note Patient Name: Luz Baca [place] [facility] [id number] Daily Note: 1800- Patient arrived to unit [...] OF CARE Observed: 12/23/2017 Status: COMPLETED Source: [place] 4:47 PM CLINIC OTHER CAMPUS REPOSITORY HNO ID: [id number] Author: Herbert Marino (Pharmacist) Service: Pharmacy Author Type: Pharmacist Type: Plan of Care Filed: 12/23/2017 4:54 PM Note Text: MEDICATION HISTORY Patient Name:Josephine Baca : 1940 Source of history:Patient: Reliability of source: Appears reliable, clearly identified: Medication name, Medication dose, Medication route, Medication frequency and Timing of last dose and Pharmacy records: [facility] pharmacy Medication Nonadherence Identified: No barriers noted [...] Unknown - Propoxyphene Preferred Pharmacy: [facility] Current PSYCHOLOGICAL OPERATIONS Medications: Prior to Admission medications as of [...] HISTORY PHYSICAL Observed: 12/23/2017 Status: COMPLETED Source: [place] 3:59 PM CLINIC OTHER CAMPUS REPOSITORY [facility] ID: [id number] Author: Radha Adams) Thuestad Service: Hospital Medicine Author Type: Physician Type: HANDP Filed: 12/23/2017 8:49 PM Note Text: HOSPITAL MEDICINE HISTORY AND PHYSICAL EXAM PATIENT NAME: Luz Baca SERVICE DATE: 12/23/2017 SERVICE TIME: 3:59 PM Primary Care Physician: Jameson Kamara MD NIGHT COVERAGE Page [phone] for any questions between 5.30p-7.30a ASSESSMENT AND [...] (HCC) - COPD (chronic obstructive pulmonary disease) ([facility]) Dr. Cruz - Depression - Diabetes ([facility]) - Diabetic neuropathy ([facility]) - GERD (gastroesophageal reflux disease) - Gout - HH (hiatus hernia) - HOCM (hypertrophic obstructive cardiomyopathy) ([facility]) - HTN (hypertension) - Hyperlipidemia - Morbid obesity with BMI of 40.0-44.9, adult ([facility]) - Pacemaker - Pneumonia h/o pneumonia/bronchitis - Renal insufficiency 2003 post op - Sleep apnea 2011 not on CPAP, unable to tolerate mask 02/2017 - SVT (supraventricular tachycardia) ([facility]) NSVT and questionable VT in 2003 post [...] age 89, HTN - Heart Failure Mother PA - Cancer Father age 71, lung cancer [...] Patient is already anti-coagulated. Disposition: Home with [facility] vs Extended Care Facility Plan of care discussed with: Patient, Family and RN SIGNATURE: Radha Edmonds MD DATE: December 23, 2017 TIME: 3:59 PM CASE MGT INIT Observed: 12/23/2017 Status: COMPLETED Source: ELZA JIM 3:14 PM CLINIC OTHER CAMPUS REPOSITORY HNO ID: [id number] Author: Zenobia (Rn) ALLYSON Soto Service: (none) Author Type: Registered Nurse Type: Care Mgt Initial Assessment Filed: 12/23/2017 3:22 PM Note Text: CARE MANAGEMENT: ASSESSMENT AND DISCHARGE PLAN SERVICE DATE: 12/23/2017 SERVICE TIME: 3:14 PM PRIMARY CARE PHYSICIAN: Jameson Kamara MD (confirmed) ADMISSION STATUS: Emergency Needs Prior to Discharge: To Be Determined;Home Care Order;OT/PT Evaluation MEDICAL: Patient/Fingernail Technician Stated Goals: To have reduction in symptoms [...] Home Intervention Taken to Avoid Future Readmission? [facility] Health Literacy: 1. How often do [...] Walker Has the Patient Been in a Senior Living Facility in the Past 30 days? No SOCIAL: Living Arrangement: Home Lives With: Daughter Financial Resources: Retired Primary Contact: Extended Emergency Contact Information Primary Emergency Contact: Octavia Soliman Address: [address] [place] [address] [address] [place] [address] Relation: Daughter Supportive: Yes Other Important Patient [...] 0 I feel financially burdened by my pst-qa-wdpdui expenses for my prescription medication: Agree completely - 2 Patient is categorized as medium risk score 2-7: The following interventions are being put into place - Consult social work and Consult pharmacy Are you interested in bedside delivery of your medications? No,uses [facility] in [place] Food Concerns: In the Last Month, Have [...] EXPLAINED: Yes HHC/SNF POTENTIAL TRANSITION PLANS Home Skilled Nursing OT/PT CM in to speak with patient and dtr Octavia at bedside, introduced self and role. Pt is a 77-year-old female presenting today with worsening trouble breathing, pt was just in the hospital for COPD and CHF. Pt is AANDOx3-4, resides with dtr (who is caregiver) in a 1SH. PSYCHOLOGICAL OPERATIONS pt was and assist with ADL's, does [...] 23, 2017 TIME: 3:14 PM PAGER/CONTACT #: [phone] XR CHEST 1V FRONTAL Observed: 12/23/2017 Status: F Source: [facility] 1:48 PM CLINIC OTHER CAMPUS REPOSITORY * [...] Other: No acute osseous abnormality is evident. Top Lift Cutter: PSCB Transcribe Date/Time: Dec 23 2017 1:50P Dictated by : SPEEDY CAM MD This examination was interpreted and the report reviewed and electronically signed by: SPEEDY CAM MD on Dec 23 2017 1:51PM EST [id number] Observed: 12/23/2017 Status: F Source: [place] BLOOD CULTURE 1:45 PM [facility] OTHER CAMPUS REPOSITORY Sp. Request/Comment: - The blood culture bottles are underfilled. Adding volume lower or higher than the 8 to 10 mL per bottle, which is the manufacturers recommended volume, may adversely affect the re covery and/or detection of organisms. 7.5ML Culture Result - No growth 5 days Performed By: #### BLCUL #### [facility] [address] [place], [place] [address] CBC AND DIFFERENTIAL Collected: 12/23/2017 Status: F Source: [place] 1:40 PM [facility] OTHER CAMPUS REPOSITORY TYPE CODE TESTS RESULT [...] Low Abs Lymph 0.42 LAB AMONO % Cortland% 3.2 LAB AAMONO <0.87 k/uL Abs [place] 0.42 LAB AEOS % Eosin% 0.1 LAB AAEOS <0.46 k/uL Abs Eosin <0.03 LAB ABASO % Baso% 0.2 LAB AABASO <0.11 k/uL Abs Baso <0.03 Performed By: #### CBCDIF, PT, PTT, CMP, MG1 #### [facility] [address] [facility] [phone] PROTIME Collected: 12/23/2017 Status: F Source: [place] 1:40 PM CLINIC OTHER CAMPUS REPOSITORY TYPE CODE TESTS RESULT OUT OF RANGE REFERENCE UNITS LAB PSEC 9.7-13.0 sec PT Sec 10.3 LAB INR 0.9-1.3 PT INR 1.0 Result Comment: Vitamin K Antagonist (VKA) Therapeutic Range: INR 2 to 3 (Target INR of 2.5) Note: For patients treated with VKA drugs, such as warfarin, the [place] [employer] 2012 Guideline recommends [...] et al. Chest 2012, 141:7S-47S Jose R NGUYEN, et al. [facility] 2017, 70: 252-289 Performed By: #### CBCDIF, PT, PTT, CMP, MG1 #### [facility] [address] [place] [address] APTT Collected: 12/23/2017 Status: F Source: [place] 1:40 PM [facility] REPOSITORY TYPE CODE TESTS RESULT OUT OF [...] laboratory APTT reagent in use throughout the [facility]. Performed By: #### CBCDIF, PT, PTT, CMP, MG1 #### [facility] [address] [place] [address] COMP METABOLIC PANEL Collected: 12/23/2017 Status: F Source: [place] 1:40 [facility] REPOSITORY TYPE CODE TESTS RESULT OUT [...] mg/dL High Glucose 556 Result Comment: The [place] [employer] (ADA) provides guidance for cutoff [...] Standards of Medical Care in Diabetes 2016, [place] [employer]. Diabetes Care. 2016.39(Suppl 1). Called to and read back by: [facility] 12/23/2017 1450 [facility] BUN 7-21 [...] #### CBCDIF, PT, PTT, CMP, MG1 #### [facility] [address] [facility] [phone] MAGNESIUM Collected: 12/23/2017 Status: F Source: [place] 1:40 PM CLINIC OTHER CAMPUS REPOSITORY TYPE CODE TESTS RESULT OUT OF REFERENCE UNITS RANGE LAB MG 1.7-2.3 mg/dL Magnesium 2.0 Performed By: #### CBCDIF, PT, PTT, CMP, MG1 #### [facility] [address] [place] [address] TROPONIN T Collected: 12/23/2017 Status: F Source: [place] 1:40 PM [facility] OTHER CAMPUS REPOSITORY TYPE CODE TESTS RESULT OUT OF REFERENCE UNITS RANGE LAB TROPT 0.000-0.029 ng/mL High Troponin T 0.052 Result Comment: Called to and read back by: [facility] 12/23/2017 Demetris Presley Performed By: #### MARIN #### [facility] [address] [place] [address] NT PRO BNP Collected: 12/23/2017 Status: F Source: [place] 1:40 PM [facility] OTHER CAMPUS REPOSITORY TYPE CODE TESTS RESULT OUT OF REFERENCE UNITS RANGE LAB PBNP <450 pg/mL High PRO B Natr 2578 Peptide Performed By: #### NTBNP, CKCKMB #### [address] [phone] CK, TOTAL AND CKMB Collected: 12/23/2017 Status: F Source: [place] 1:40 PM [facility] OTHER CAMPUS REPOSITORY TYPE CODE TESTS RESULT [...] U/L. Performed By: #### NTBNP, CKCKMB #### [address] [phone] Observed: 12/23/2017 Status: F Source: [place] BLOOD CULTURE 1:40 PM [facility] OTHER CAMPUS REPOSITORY Sp. Request/Comment: - The blood culture bottles are underfilled. Adding volume lower or higher than the 8 to 10 mL per bottle, which is the manufacturers recommended volume, may adversely affect the re covery and/or detection of organisms. 11.6ML Culture Result - No growth 5 days Performed By: #### BLCUL #### [facility] [address] [place], [place] [address] ED PROV NOTE Observed: 12/23/2017 Status: COMPLETED Source: [place] 1:22 PM CLINIC OTHER CAMPUS REPOSITORY O ID: [id number] Author: Leandro Kauffman MD Service: (none) Author [...] - CKD (chronic kidney disease), stage IV ([facility]) - COPD (chronic obstructive pulmonary disease) ([facility]) Dr. Cruz - Depression - Diabetes ([facility]) - Diabetic neuropathy ([facility]) - GERD (gastroesophageal reflux disease) - Gout - HH (hiatus hernia) - HOCM (hypertrophic obstructive cardiomyopathy) ([facility]) - HTN (hypertension) - Hyperlipidemia - Morbid obesity with BMI of 40.0-44.9, adult ([facility]) - Pacemaker - Pneumonia h/o pneumonia/bronchitis - Renal insufficiency 2003 post op - Sleep apnea 2011 not on CPAP, unable to tolerate mask 02/2017 - SVT (supraventricular tachycardia) ([facility]) NSVT and questionable VT in 2003 post [...] age 89, HTN - Heart Failure Mother PA - Cancer Father age 71, lung cancer [...] ED NOTE Observed: 12/23/2017 Status: COMPLETED Source: [place] 1:02 PM [facility] REPOSITORY HNO ID: [id number] Author: Anna (Rn) ALLYSON Valencia Service: (none) Author Type: Registered Nurse Type: ED Notes Filed: 12/23/2017 1:03 PM Note Text: Patient with increased shortness of breath. Decreased pulse ox. Patient on 2 liters oxygen. HOSP Observed: 12/23/2017 Status: COMPLETED Source: [place] 12:00 AM [facility] REPOSITORY Patient:Luz Baca MRN: <[id number]> Height:5' 8(1.727 m) Weight:232 lb 9.4 oz [...] (HumaLOG) Problem List: HOCM (hypertrophic obstructive cardiomyopathy) ([facility]) [I42.1] SVT (supraventricular tachycardia) ([facility]) [I47.1] Carotid artery disease ([facility]) [I77.9] CAD (coronary artery disease) [I25.10] Essential hypertension [I10] Hyperlipidemia [E78.5] COPD (chronic obstructive pulmonary disease) ([facility]) [J44.9] Sleep apnea [G47.30] HH (hiatus hernia) [...] [V999.95] Dyspnea [R06.00] Heart failure, systolic, acute ([facility]) [I50.21] Obesity [E66.9] Gout [M10.9] CKD (chronic kidney disease) stage 3, GFR 30-59 ml/min [N18.3] Pacemaker [Z95.0] CKD (chronic kidney disease), stage IV (HCC) [N18.4] Acute exacerbation of CHF (congestive heart failure) ([facility]) [I50.9] Acute on chronic combined systolic and diastolic CHF (congestive heart failure) ([facility]) [I50.43] Elevated troponin [R74.8] COPD with acute exacerbation (HCC) [J44.1] Acute on chronic respiratory failure with hypoxia ([facility]) [J96.21] HCAP (healthcare-associated pneumonia) [J18.9] Allergies: Bactrim [Sulfamethoxazole-Trimethoprim] Latex Penicillins Tetracycline Atorvastatin Codeine Dilaudid [Hydromorphone (Bulk)] Meperidine Pentazocine Pioglitazone Propoxyphene Date Verified: 12/31/17 Lab Values Lab Value Units Date High Low POTA* 5.1 mmol/L 12/31/2017 5.1 3.7 STAR* 40.5 % 12/31/2017 46.0 36.0 Progress Notes ([facility]): Marisela Forman 12/24/2017 10:00 AM Signed [...] (HCC) - COPD (chronic obstructive pulmonary disease) ([facility]) Dr. Cruz - Depression - Diabetes ([facility]) - Diabetic neuropathy (HCC) - GERD (gastroesophageal reflux disease) - Gout - HH (hiatus hernia) - HOCM (hypertrophic obstructive cardiomyopathy) ([facility]) - HTN (hypertension) - Hyperlipidemia - Morbid obesity with BMI of 40.0-44.9, adult ([facility]) - Pacemaker - Pneumonia h/o pneumonia/bronchitis - Renal insufficiency 2003 post op - Sleep apnea 2011 not on CPAP, unable to tolerate mask 02/2017 - SVT (supraventricular tachycardia) ([facility]) NSVT and questionable VT in 2003 post [...] age 89, HTN - Heart Failure Mother PA - Cancer Father age 71, lung cancer [...] To Be Determined;Home Care Order;OT/PT Evaluation MEDICAL: Patient/Fingernail Technician Stated Goals: To have reduction in symptoms [...] Home Intervention Taken to Avoid Future Readmission? [facility] Health Literacy: 1. How often do [...] Care? Home Health Care Agency: [facility]; ; Active. Equipment Prior to Admission: Bedside Commode Oxygen 2.5 liters per minute Rollator Scooter Walker Has the Patient Been in a Senior Living Facility in the Past 30 days? No SOCIAL: Living Arrangement: Home Lives With: Daughter Financial Resources: Retired Primary Contact: Extended Emergency Contact Information Primary Emergency Contact: JourdanOctavia Address: [address] [place] [address] Relation: Daughter Supportive: Yes Other Important Patient [...] 0 I feel financially burdened by my [id number] expenses for my prescription medication: Agree completely - 2 Patient is categorized as medium risk score 2-7: The following interventions are being put into place - Consult social work and Consult pharmacy Are you interested in bedside delivery of your medications? No,uses [facility] in [place] Food Concerns: In the Last Month, Have [...] EXPLAINED: Yes HHC/SNF POTENTIAL TRANSITION PLANS Home Skilled Nursing OT/PT CM in to speak with patient and doreen Andujar at bedside, introduced self and role. Pt is a 77-year-old female presenting today with worsening trouble breathing, pt was just in the hospital for COPD and CHF. Pt is AANDOx3-4, resides with dtr (who is caregiver) in a 1SH. PSYCHOLOGICAL OPERATIONS pt was and assist with ADL's, does [...] 23, 2017 TIME: 3:14 PM PAGER/CONTACT #: [phone] Radha Edmonds MD 12/23/2017 8:49 PM Signed HOSPITAL MEDICINE HISTORY AND PHYSICAL EXAM PATIENT NAME: Luz Baca SERVICE DATE: 12/23/2017 SERVICE TIME: 3:59 PM Primary Care Physician: Jameson Kamara MD NIGHT COVERAGE Page [phone] for any questions between 5.30p-7.30a ASSESSMENT AND [...] - CKD (chronic kidney disease), stage IV ([facility]) - COPD (chronic obstructive pulmonary disease) ([facility]) Dr. Cruz - Depression - Diabetes ([facility]) - Diabetic neuropathy (HCC) - GERD (gastroesophageal reflux disease) - Gout - HH (hiatus hernia) - HOCM (hypertrophic obstructive cardiomyopathy) ([facility]) - HTN (hypertension) - Hyperlipidemia - Morbid obesity with BMI of 40.0-44.9, adult ([facility]) - Pacemaker - Pneumonia h/o pneumonia/bronchitis - Renal insufficiency 2003 post op - Sleep apnea 2011 not on CPAP, unable to tolerate mask 02/2017 - SVT (supraventricular tachycardia) ([facility]) NSVT and questionable VT in 2003 post [...] age 89, HTN - Heart Failure Mother PA - Cancer Father age 71, lung cancer [...] Timing of last dose and Pharmacy records: [facility] pharmacy Medication Nonadherence Identified: No barriers noted [...] Unknown - Propoxyphene Preferred Pharmacy: [facility] Current PSYCHOLOGICAL OPERATIONS Medications: Prior to Admission medications as of [...] Note Patient Name: Luz Baca Patient Location: [facility] [place]0319/[id number] Daily Note: 1800- Patient arrived to unit [...] breathing. This note was completed by: Geraldo Mak, ALLYSON Potter, Pharmacist 12/23/2017 8:15 PM Signed PHARMACY VANCOMYCIN [...] Patient Name: Luz Baca Patient Location: [facility] [place]/[id number] Daily Note:2054: Dr. Brown aware of blood sugar of 576. No new orders at this time. 2238: Dr. Brown notified of HR 41. No new orders at this time. This note was completed by: Rosi Moralez RN Previous Version Rosi Moralez RN, RN 12/23/2017 10:42 PM Signed Nursing Progress Note [facility] Program Specialist Assessment Note Patient Name: Luz Baca Patient [place] [address] [address]- Patient Vitals in the past 4 hrs: [...] SERVICE TIME: 2:01 PM LOCATION / ROOM: [place] [address] [address] Hospital Medicine/Primary Attending: Radha Edmonds MD NIGHT COVERAGE BETWEEN 5.30P-7.30A Page [phone] ASSESSMENT AND PLAN HCAP (healthcare-associated pneumonia) Feeling [...] tab(s) (ZOCOR) 40 mg ORAL AT BEDTIME [place] Ebonie Adams) Thuestad 40 mg at 12/24/172127 gabapentin 600 mg cap(s) (NEURONTIN) 600 mg ORAL BID [place] Ebonie Adams) Thuestad 600 mg at 12/24/172127 ipratropium-albuterol 3 mL nebulizer solution (DUONEB) 3 mL INHALATION q 4 H while awake Radhaebonie Adams) Thuestad 3 mL at 12/24/172048 colchicine 0.6 mg tab(s) 0.6 mg ORAL DAILY [place] Ebonie Adams) Thuestad 0.6 mg at 12/24/17 0832 apixaban 5 mg tab(s) (ELIQUIS) 5 mg ORAL BID Radha Adams) Thuestad 5 mg at 12/24/172127 predniSONE 40 mg tab(s) (DELTASONE) 40 mg ORAL DAILY Radha Adams) Thuestad 40 mg at 12/24/17 0829 [...] Radha Ebonie Adams) Thuestad 10 mEq at 12/24/17 0830 spironolactone 25 mg tab(s) (ALDACTONE) 25 mg ORAL DAILY Radha Adams) Thuestad 25 mg at 12/24/[address] 40 mg tab(s) (PROTONIX) 40 mg ORAL DAILY (6 AM) Radha Adams) Thuestad 40 mg at 12/24/17 0613 isosorbide mononitrate ER 30 mg tab(s) (IMDUR) 30 mg ORAL DAILY Radha Adams) Thuestad 30 mg at 12/24/17 0829 nitroglycerin sublingual 0.4 mg tab(s) (NITROQUICK) 0.4 mg SUBLINGUAL q 5 MIN PRN Radha Mazauestad 0.9% NaCl 3-5 mL 3-5 mL INTRAVENOUS q 12 H Radha Loomis Md Thuestad 5 mL at 12/24/17 2129 furosemide 40 mg injection (LASIX) 40 mg INTRAVENOUS DAILY Radha Adams) Thuestad 40 mg at 12/24/17 0826 benzonatate 100 mg cap(s) (TESSALON PERLE) 100 mg ORAL TID Hareesh Singam 100 mg at 12/24/17 2128 insulin lispro injection (rapid acting) (HumaLOG) SUBCUTANEOUS w MEALS Caroline (Pickling Tank Operator) Garcia 8 Units at 12/24/17 1327 insulin lispro injection (rapid acting) (HumaLOG) SUBCUTANEOUS AT BEDTIME Caroline (Pickling Tank Operator) Garcia OBJECTIVE PHYSICAL EXAM: BP 130/53 Pulse [...] Patient is already anti-coagulated. Disposition: Home with [facility] Plan of care discussed with: Patient SIGNATURE: Radha Edmonds MD DATE: December 25, 2017 TIME: 1:01 AM Previous Version VU STEIN, PHARMACY RESDIENT 12/24/2017 4:11 PM Signed Antimicrobial Stewardship [id number] Patient: Luz Baca Age: [age] year old [...] care of this patient. Vu Stein, Pharm.D, Engineering Technician Fingernail Technician from the Antimicrobial Stewardship Team Pharmacy Extension: [...] contact pharmacy if questions. Vu Stein, Pharm.D, Engineering Technician [phone] Eduardo Mccarty, RD, LD 12/24/2017 5:54 [...] Note Patient Name: Luz Baca Patient Location: [facility] [place]031/[id number] Daily Note: 0809- Patient gluc 104. Patient has scheduled [address] Edmonds made aware and stated to only give 4 units. This note was completed by: Chantelle Dobson, ALLYSON Edmonds MD 12/25/2017 3:28 PM Signed HOSPITAL MEDICINE PROGRESS NOTE Name: Luz Baca SERVICE DATE: 12/25/2017 SERVICE TIME: 1:28 PM LOCATION / ROOM: [facility] [place]0317/HE-[id number] Hospital Medicine/Primary Attending: Radha Edmonds MD NIGHT COVERAGE BETWEEN 5.30P-7.30A Page [phone] ASSESSMENT AND PLAN HCAP (healthcare-associated pneumonia) Feeling [...] injection (GLUCAGEN) 1 mg INTRAMUSCULAR PRN Leandro Kaufmfan MD Or dextrose 50% in water 25 mL syringe 12.5 g INTRAVENOUS PRN Leandro Kauffman MD nystatin 2 mL oral liquid (MYCOSTATIN) 200,000 Units ORAL QID Radha Adams) Thuestad 2 mL at 12/25/17 1241 simvastatin 40 mg tab(s) (ZOCOR) 40 mg ORAL AT BEDTIME [place] Ebonie Adams) Thuestad 40 mg at 12/24/17 2128 gabapentin 600 mg cap(s) (NEURONTIN) 600 mg ORAL BID Radha Ebonie Adams) Thuestad 600 mg at 12/25/17 0813 ipratropium-albuterol 3 mL nebulizer solution (DUONEB) 3 mL INHALATION q 4 H while awake Radha Adams) Thuestad 3 mL at 12/25/17 1005 colchicine 0.6 mg tab(s) 0.6 mg ORAL DAILY Radha Ebonie Adams) Thuestad 0.6 mg at 12/25/17 0815 apixaban 5 mg tab(s) (ELIQUIS) 5 mg ORAL BID [place] Ebonie Adams) Thuestad 5 mg at 12/25/17 0815 predniSONE 40 mg tab(s) (DELTASONE) 40 mg ORAL DAILY Radha Ebonie Adams) Thuestad 40 mg at 12/25/17 [...] KLOR-CON) 10 mEq ORAL DAILY Radha A (Md) Thuestad 10 mEq at 12/25/17 0814 spironolactone 25 mg tab(s) (ALDACTONE) 25 mg ORAL DAILY [place] A Bryan) Thuestad 25 mg at 12/25/[address] 40 mg tab(s) (PROTONIX) 40 mg ORAL DAILY (6 AM) Radha Ebonie Adams) Thuestad 40 mg at 12/25/17 0604 isosorbide mononitrate ER 30 mg tab(s) (IMDUR) 30 mg ORAL DAILY [place] Ebonie Adams) Thuestad 30 mg at 12/25/17 0815 nitroglycerin sublingual 0.4 mg tab(s) (NITROQUICK) 0.4 mg SUBLINGUAL q 5 MIN PRN Radha Ebonie Adams) Thuestad 0.9% NaCl 3-5 mL 3-5 mL INTRAVENOUS q 12 H Radha Ebonie Adams) Thuestad 5 mL at 12/25/17 0819 furosemide 40 mg injection (LASIX) 40 mg INTRAVENOUS DAILY Radha Ebonie Adams) Thuestad 40 mg at 12/25/17 0816 benzonatate 100 mg cap(s) (TESSALON PERLE) 100 mg ORAL TID Hareesh Singam 100 mg at 12/25/17 1241 insulin lispro injection (rapid acting) (HumaLOG) SUBCUTANEOUS w MEALS Caroline (Pickling Tank Operator) Garcia 2 Units at 12/25/17 1243 insulin lispro injection (rapid acting) (HumaLOG) SUBCUTANEOUS AT BEDTIME Caroline (Pickling Tank Operator) Garcia OBJECTIVE PHYSICAL EXAM: BP 114/56 Pulse [...] Patient is already anti-coagulated. Disposition: Home with [facility] Plan of care discussed with: Patient SIGNATURE: Radha Edmonds MD DATE: December 25, 2017 TIME: 1:28 PM Jennifer Sevilla RN, RN 12/25/2017 8:25 PM Signed Nursing Progress Note Patient Name: Luz Baca Patient [place] [facility] [place]/[id number] Daily Note: 1930 Resting in bed. States [...] December 26, 2017 TIME: 11:09 AM PAGER: [phone] CONSULT: CARDIOLOGY SERVICE SERVICE DATE: 12/26/2017 CONSULTING PHYSICIAN: Jose C Yeung MD PCP: Jameson aKmara MD ATTENDING: Radha Adams) Kendal REASON FOR CONSULT: Shortness of Breath Subjective CHIEF COMPLAINT: Pulmonary infiltrate on chest x-ray [R91.8] HISTORY OF PRESENT ILLNESS: Ms. Baca is a 77 year old female who presents for respiratory failure, pneumonia, COPD, acute heart failure. She was recently admitted to [facility] and seen by Dr. Garcia. During [...] - CKD (chronic kidney disease), stage IV ([facility]) - COPD (chronic obstructive pulmonary disease) ([facility]) Dr. Cruz - Depression - Diabetes ([facility]) - Diabetic neuropathy ([facility]) - GERD (gastroesophageal reflux disease) - Gout - HH (hiatus hernia) - HOCM (hypertrophic obstructive cardiomyopathy) ([facility]) - HTN (hypertension) - Hyperlipidemia - Morbid obesity with BMI of 40.0-44.9, adult ([facility]) - Pacemaker - Pneumonia h/o pneumonia/bronchitis - Renal insufficiency 2003 post op - Sleep apnea 2011 not on CPAP, unable to tolerate mask 02/2017 - SVT (supraventricular tachycardia) ([facility]) NSVT and questionable VT in 2003 post [...] age 89, HTN - Heart Failure Mother PA - Cancer Father age 71, lung cancer [...] - - - 65 18 95 % 03/10/18 1553 129/70 36.4 ?C (97.5 ?F) Oral [...] 26, 2017 TIME: 10:21 PM PAGER/CONTACT #: [phone] Previous Version Radha Edmonds MD 12/26/2017 3:18 PM Signed HOSPITAL MEDICINE PROGRESS NOTE Name: Luz Baca SERVICE DATE: 12/26/2017 SERVICE TIME: 3:13 PM LOCATION / ROOM: [place] [address]/[id number]- Hospital Medicine/Primary Attending: Radha Edmonds MD NIGHT COVERAGE BETWEEN 5.30P-7.30A Page [phone] ASSESSMENT AND PLAN HCAP (healthcare-associated pneumonia) Feeling [...] awake Radhaebonie Adams) Thuestad 3 mL at 12/26/17 1224 colchicine 0.6 mg tab(s) 0.6 mg ORAL DAILY [place] Ebonie Adams) Thuestad 0.6 mg at 12/26/17 0813 apixaban 5 mg tab(s) (ELIQUIS) 5 mg ORAL BID Radhaebonie Adams) Thuestad 5 mg at 12/26/17 0812 insulin lispro 10 Units injection (rapid acting) (HumaLOG) 10 Units SUBCUTANEOUS TID w MEALS [place]ie Adams) Thuestad 10 Units at 12/26/17 1221 [...] Radha Ebonie Adams) Thuestad 10 mEq at 12/26/17 0811 spironolactone 25 mg tab(s) (ALDACTONE) 25 mg ORAL DAILY Radha Ebonie Adams) Thuestad 25 mg at 12/26/[address] 40 mg tab(s) (PROTONIX) 40 mg ORAL DAILY (6 AM) [place] Ebonie Adams) Thuestad 40 mg at 12/26/17 0540 [...] (rapid acting) (HumaLOG) SUBCUTANEOUS w MEALS Caroline (Pickling Tank Operator) Garcia 2 Units at 12/26/17 1221 insulin lispro injection (rapid acting) (HumaLOG) SUBCUTANEOUS AT BEDTIME Caroline (Pickling Tank Operator) Garcia 6 Units at 12/25/172041 OBJECTIVE PHYSICAL [...] Patient is already anti-coagulated. Disposition: Home with [facility] Plan of care discussed with: Patient SIGNATURE: Radha Edmonds MD DATE: December 26, 2017 TIME: 3:13 PM Max Reynolds MD 12/28/2017 9:27 AM Signed [facility]- Consultation LUZ BACA : 1940 AGE: 77 SEX: F ACCTNUM: [id number] [facility]: [facility] LOCATION: [address] ATTENDING PHYSICIAN: PEYMAN GUERRERO DATE OF CONSULTATION: 12/27/2017 REFERRING PHYSICIAN: Peyman Guerrero M.D. REASON FOR CONSULTATION: Recurrent pneumonia. HISTORY: The patient is a 77-year-old female with a history of chronic respiratory failure, on 2-1/2 L of oxygen at home, who was recently admitted to [facility] from 12/10/2017 to 12/15/2017 when she had [...] her family. Max Reynolds M.D. Infectious Disease [id number] Eduardo Mccarty RD, LD 12/27/2017 9:53 AM [...] Name:Josephine Baca : 1940 Reconciliation: Yes All PSYCHOLOGICAL OPERATIONS medications addressed by LIP Additional comments: N/A [...] Pentazocine - Pioglitazone Unknown - Propoxyphene Current PSYCHOLOGICAL OPERATIONS Medications: Prior to Admission medications as of [...] Received IV Lasix. Updated information sent to [facility]. Possible d/c today. CM continuing to follow. SIGNATURE: TAMELA Olson PATIENT NAME: Luz Baca DATE: December 27, 2017 TIME: 11:26 AM PAGER/CONTACT #: [phone] Peyman Guerrero MD 12/27/2017 1:50 PM Signed HOSPITAL MEDICINE PROGRESS NOTE Name: Luz Baca SERVICE DATE: 12/27/2017 SERVICE TIME: 1:40 PM LOCATION / ROOM: [id number]/[id number] Hospital Medicine/Primary Attending: Peyman guerrero MD NIGHT COVERAGE BETWEEN 5.30P-7.30A Page [phone] ASSESSMENT AND PLAN HCAP (healthcare-associated pneumonia) Feeling [...] BEDTIME Radha Adams) Thuestad 40 mg at 12/26/17 2041 [...] (LANTUS) 45 Units SUBCUTANEOUS DAILY (8 AM) Klick[place]bonie Adams) Thuestad 45 Units at 12/27/17 0809 [...] tab(s) (K-DUR, KLOR-CON) 10 mEq ORAL DAILY [place] Ebonie Adams) Thuestad 10 mEq at 12/27/17 [...] 0.4 mg SUBLINGUAL q 5 MIN PRN Rahda Adams) Thuestad 0.9% NaCl 3-5 mL 3-5 [...] (rapid acting) (HumaLOG) SUBCUTANEOUS w MEALS Caroline (Pickling Tank Operator) Garcia 2 Units at 12/27/17 1307 insulin lispro injection (rapid acting) (HumaLOG) SUBCUTANEOUS AT BEDTIME [facility] Garcia 2 Units at 12/26/17 2042 OBJECTIVE [...] Patient is already anti-coagulated. Disposition: Home with [facility] Plan of care discussed with: Patient SIGNATURE: Radha Edmonds MD DATE: December 27, 2017 TIME: 1:50 PM AKUA RNEZO, PLANT PATHOLOGIST 12/27/2017 2:47 PM Signed Pharmacy Note Pneumonia [...] [facility] INFORMATION SIGNATURE: AKUA MULLER, PLANT PATHOLOGIST PAGER: [phone] AKUA MULLER, PLANT PATHOLOGIST 12/27/2017 2:49 PM Signed Heart Failure Education [...] HF patient education packet SIGNATURE: AKUA MULLER, PLANT PATHOLOGIST PAGER: [phone] Max Reynolds MD 12/27/2017 3:17 PM Signed Consult Dictated. Please call with questions. Will follow with you. Thank you. Max Reynolds MD Pager: [phone] Date: 12/27/2017 Time: 3:17 PM Sofya De, RN, RN 12/28/2017 4:42 AM Signed Nursing Progress Note Patient Name: Luz Baca Patient Location: [facility] [place]7/NJ-[id number]-3622-1 Daily Note:0433- 6 beat run of vtach, pt states she does feel a slight flutter in her chest and some mild nausea, call out to notify hospitalist Dr Wick no new orders. This note was completed by: Sofya De, ALLYSON Clay RN, RN 12/28/2017 9:59 AM Addendum Nursing Progress Note Patient Name: Luz Baca Patient Location: [facility] [place]/JA-7D-5507-1 Daily Note: 0840- Pt glucose was 56. Gave OJ and isma crackers. Glucose up to 95. Held all insulin, left message for hospitalist. Waiting on return phone call [phone]-Spoke with Cesar Richard. Alerted him that I held all insulin. No new orders for the pt. This note was completed by: Amarjit Clay RN Previous Version Elsy Lees, PT 12/28/2017 11:31 AM Signed Physical Therapy Evaluation SERVICE DATE: 12/28/2017 SERVICE TIME: 916 to 958 ROOM: [id number] Recommended Discharge Disposition: Home PT Recommended Discharge [...] Diagnosis: Reduced mobility-other Interventions Provided: Evaluation;Therapeutic Activity (82278);Gait Training (22907) $ Evaluation-Low (57363) Billed Units: 1 unit Therapeutic Activity (45438) Treatment Minutes: 15 1 unit Skilled Intervention(s): [...] in discharge recommendation and rationale Gait Training (50719) Treatment Minutes: 12 1 unit Skilled Intervention(s): [...] 28, 2017 TIME: 11:19 AM PAGER/CONTACT #: [phone] Gay Jack CCC-NOTEMAN, GALO/NOTEMAN 12/28/2017 2:42 PM Signed Speech Therapy MBSS Evaluation SERVICE DATE: 12/28/2017 SERVICE TIME: 1130 to 1200 ROOM: [place] [address] Nursing Recommendations: Reinforce use of swallowing strategies;Utilize [...] Lateral position MBS Consistencies Tested: Thin Barium Liquids;Witmer Thick Barium Liquids;Puree With Barium Paste;Soft Solid [...] phase Interventions Provided: Modified Barium Swallow Study (85775);Dysphagia Therapy (33529) $ Modified Barium Swallow Study (26964) Billed Units: 1 unit $ Dysphagia Therapy (66630) Billed Units: 1 unit Skilled Interventions: Instructed [...] for this therapy evaluation/treatment. SIGNATURE: Gay Jack [facility]-NOTEM[facility] PATIENT NAME: Luz Baca DATE: December 28, 2017 TIME: 2:36 PM PAGER: [phone] Peyman Guerrero MD 12/28/2017 2:29 PM Signed HOSPITAL MEDICINE PROGRESS NOTE Name: Luz Baca SERVICE DATE: 12/28/2017 SERVICE TIME: 2:25 PM LOCATION / ROOM: [place] [address]/[id number] Hospital Medicine/Primary Attending: Peyman guerrero MD NIGHT COVERAGE BETWEEN 5.30P-7.30A Page [phone] ASSESSMENT AND PLAN HCAP (healthcare-associated pneumonia) Feels [...] tab(s) (K-DUR, KLOR-CON) 10 mEq ORAL DAILY [place] Ebonie Adams) Thuestad 10 mEq at 12/28/17 0835 spironolactone 25 mg tab(s) (ALDACTONE) 25 mg ORAL DAILY Radha Adams) Thuestad 25 mg at 12/28/[address] 40 mg tab(s) (PROTONIX) 40 mg ORAL DAILY (6 AM) Radha Adams) Thuestad 40 mg at 12/28/17 0535 isosorbide mononitrate ER 30 mg tab(s) (IMDUR) 30 mg ORAL DAILY [place] Ebonie Adams) Thuestad 30 mg at 12/28/17 [...] (TESSALON PERLE) 100 mg ORAL TID Stephan Singam 100 mg at 12/28/17 1205 insulin lispro injection (rapid acting) (HumaLOG) SUBCUTANEOUS w MEALS Caroline (Pickling Tank Operator) Garcia 6 Units at 12/28/17 1206 insulin lispro injection (rapid acting) (HumaLOG) SUBCUTANEOUS AT BEDTIME Caroline (Pickling Tank Operator) Garcia 2 Units at 12/26/17 204 OBJECTIVE [...] Patient is already anti-coagulated. Disposition: Home with [facility] PT Plan of care discussed with: Patient, RN and daughter SIGNATURE: Peyman guerrero MD DATE: December 28, 2017 TIME: 2:29 PM Max Reynolds MD 12/28/2017 3:38 PM Signed INFECTIOUS [...] 1320 to 1416 (split session for RT; 5110-2123, 1115-4472) ROOM: [place] [address] Recommended Discharge Disposition: Home OT Recommended Discharge [...] Patient TREATMENT INTERVENTIONS: Interventions Provided: Evaluation;Therapeutic Activity (00714);Self Skilled Nursing Management (46512) $ Evaluation-Low (95335) Billed Units: 1 unit Therapeutic Activity (77147) Treatment Minutes: 9 1 unit Skilled Intervention(s): [...] handles during first sit to stand. Self Skilled Nursing Management (32822) Treatment Minutes: 15 1 unit Skilled Intervention(s): [...] December 28, 2017 TIME: 4:18 PM PAGER: [phone] Previous Version Peyman Guerrero MD 12/29/2017 11:37 AM [facility] MEDICINE PROGRESS NOTE Name: Luz Baca SERVICE DATE: 12/29/2017 SERVICE TIME: 11:29 AM LOCATION / ROOM: [place] [address]/[id number] Medicine/Primary Attending: Peyman guerrero MD NIGHT COVERAGE BETWEEN 5.30P-7.30A Page [phone] ASSESSMENT AND PLAN HCAP (healthcare-associated pneumonia), suspected [...] COATED) 81 mg ORAL DAILY Jose C Ellisinski 81 mg at 12/28/17 0836 predniSONE 20 [...] BID Radha Adams) Thuestad 600 mg at 12/29/17 08 ipratropium-albuterol 3 mL nebulizer solution (DUONEB) 3 mL INHALATION q 4 H while awake Radha Loomis Md Thuestad 3 mL at 12/29/17 1010 colchicine 0.6 mg tab(s) 0.6 mg ORAL DAILY Radha Adams) Thuestad 0.6 mg at 12/29/17 08 apixaban 5 mg tab(s) (ELIQUIS) 5 mg ORAL BID Radha Adams) Thuestad 5 mg at 12/29/17 08 insulin [...] DAILY Radha Adams) Thuestad 10 mEq at 12/29/17 0822 spironolactone 25 mg tab(s) (ALDACTONE) 25 mg ORAL DAILY Radha Adams) Thuestad 25 mg at 12/29/[address] 40 mg tab(s) (PROTONIX) 40 mg ORAL DAILY (6 AM) Radha Adams) Thuestad 40 mg at 12/29/17 0509 isosorbide mononitrate ER 30 mg tab(s) (IMDUR) 30 mg ORAL DAILY Radha Adams) Thuestad 30 mg at 12/29/17 0822 nitroglycerin sublingual 0.4 mg tab(s) (NITROQUICK) 0.4 mg SUBLINGUAL q 5 MIN PRN Radha Adams) Linkuestad 0.9% NaCl 3-5 mL 3-5 mL INTRAVENOUS q 12 H Radha Loomis Md Thuestad 5 mL at 12/29/17 0825 furosemide 40 mg injection (LASIX) 40 mg INTRAVENOUS DAILY Radha Adams) Thuestad 40 mg at 12/29/17 0822 benzonatate 100 mg cap(s) (TESSALON PERLE) 100 mg ORAL TID Hareesh Singam 100 mg at 12/29/17 0821 insulin lispro injection (rapid acting) (HumaLOG) SUBCUTANEOUS w MEALS Caroline (Pickling Tank Operator) Garcia 2 Units at 12/29/17 0825 insulin lispro injection (rapid acting) (HumaLOG) SUBCUTANEOUS AT BEDTIME Caroline (Pickling Tank Operator) Garcia 4 Units at 12/28/172014 OBJECTIVE PHYSICAL [...] Patient is already anti-coagulated. Disposition: Home with [facility] PT Plan of care discussed with: Patient and pre owned sales consultant SIGNATURE: Peyman guerrero MD DATE: December [...] obesity and sleep apnea who presented to [facility] on 12/23/2017 with pneumonia. Due to the [...] BM daily. The patient was hospitalized in [place] for what sounds to be a lower [...] No dentition. EYES: No scleral icterus SKIN: [place] in color. No jaundice LUNGS: Diminished to [...] surrounding procedures. Believes they were completed at [facility] in [facility] ASSESSMENT 1. Chronic worsening dysphagia 2. [...] Magnesium - Attempt to obtain records from [facility] in [place] Thank you for the opportunity to participate [...] reviewed Max Reynolds MD Pager: Mary Nieto, PSYCHOLOGICAL OPERATIONS 12/29/2017 2:47 PM Cosign Needed Physical Therapy Treatment SERVICE DATE: 12/29/2017 SERVICE TIME: 1339 to 1410 ROOM: [place] [address] Recommended Discharge Disposition: Home PT Recommended Discharge [...] Diagnosis: Reduced mobility-other Interventions Provided: Therapeutic Exercise (32609);Therapeutic Activity (37092);Gait Training (39066) Therapeutic Exercise (87570) Treatment Minutes: 10 1 unit Skilled Intervention(s): Instruction in standing therapeutic exercise for bilateral heel/toe raises, hip abduction/adduction, marching, and hamstring curls (not performed on R LE secondary to fatigue) x 10 reps each Verbal and tactile cuing provided for correct performance of exercises Therapeutic Activity (45745) Treatment Minutes: 6 0 units Skilled Intervention(s): Instruction in sit to stand technique with proper hand placement and body positioning at edge of bed/chair Instruction in stand to sit technique with lower extremities touching chair/bed and reaching back for surface Patient educated in importance of out of bed activity for rehabilitation and to prevent functional decline. Gait Training (59546) Treatment Minutes: 15 1 unit Skilled Intervention(s): [...] any further questions, concerns or needs from PSYCHOLOGICAL OPERATIONS at this time. Gait belt in place [...] 29, 2017 TIME: 2:39 PM PAGER/CONTACT #: [phone] Keren Mcadams CCC-NOTEMAN 12/29/2017 3:37 PM Signed Speech Therapy Treatment SERVICE DATE: 12/29/2017 SERVICE TIME: 1425 to 1445 ROOM: [place] [address] Nursing Recommendations: Reinforce use of swallowing strategies [...] Dysphagia, pharyngoesophageal phase Interventions Provided: Dysphagia Therapy (56330) $ Dysphagia Therapy (55966) Billed Units: 1 unit Skilled Interventions: Provided [...] for this therapy evaluation/treatment. SIGNATURE: Keren Mcadams CCC-NOTEMAN PATIENT NAME: Luz Baca DATE: December 29, 2017 TIME: 3:33 PM PAGER: [phone] Saul Hernandez RN, RN 12/30/2017 5:36 AM Signed Nursing Progress Note Patient Name: Luz Baca Patient Location: [id number]/[id number] Daily Note: 0535 - Dr. Wick notified of pts elevated potassium level; no new orders at this time; will continue to monitor This note was completed by: ALLYSON Dawn MD 12/30/2017 10:44 AM Signed GASTROENTEROLOGY CONSULT [...] Magnesium - Attempt to obtain records from [facility] in [place] INTERVAL HPI: Patient reports feeling well this [...] No dentition. EYES: No scleral icterus SKIN: [place] in color. No jaundice LUNGS: Diminished to [...] 2.5* 2.7* Liver Function, Amylase, AND Lipase [facility] LABS: Component 07/14/2004 07/25/2004 09/23/2010 05/17/2017 10/27/2017 [...] surrounding procedures. Believes they were completed at [facility] in [facility] ? SIGNATURE: Mandy Yanez CNP DATE: [...] 12/30/2017 SERVICE TIME: 08 to 0911 ROOM: [place] [address] Recommended Discharge Disposition: Home PT Recommended Discharge [...] Diagnosis: Reduced mobility-other Interventions Provided: Therapeutic Exercise (59815);Therapeutic Activity (25692);Gait Training (56236) Therapeutic Exercise (68900) Treatment Minutes: 15 1 unit Skilled Intervention(s): Instruction in standing therapeutic exercise for bilateral heel/toe raises, hip abduction/adduction, marching and hamstring curls x 10 reps each Verbal and tactile cuing provided for correct performance of exercises Therapeutic Activity (03098) Treatment Minutes: 3 0 units Skilled Intervention(s): Instruction in sit to stand technique with proper hand placement and body positioning at edge of bed/chair Instruction in stand to sit technique with lower extremities touching chair/bed and reaching back for surface Discussed with patient possibility of obtaining new hospital bed for home going. Discussed with case resolution specialist. Gait Training (78066) Treatment Minutes: 30 2 units Skilled Intervention(s): Instruction in sequencing, gait pattern, reciprocating steps Instruction in correction of gait deviations, cues for upright posture, safety, and diaphragmatic breathing Instruction in stair negotiation, [id number]. Cues provided for safety. Instruction in use [...] any further questions, concerns or needs from PSYCHOLOGICAL OPERATIONS at this time. Gait belt in place [...] 30, 2017 TIME: 9:28 AM PAGER/CONTACT #: [phone] TAMELA Olson 12/30/2017 10:29 AM Signed CARE MANAGEMENT PROGRESS NOTE SERVICE DATE: 12/30/2017 SERVICE TIME: 10:20am LOS: 7 days EMR reviewed. Scheduled for EGD tomorrow. Updates sent to [facility]. SIGNATURE: TAMELA Olson PATIENT NAME: Luz Baca DATE: December 30, 2017 TIME: 10:28 AM PAGER/CONTACT #: [phone] Chantelle Dobson RN, RN 12/30/2017 1:20 PM Signed Nursing Progress Note Patient Name: Luz Baca Patient Location: [place] [address]/[id number]- Daily Note: 1245- Patient requesting nystatin oral [...] SERVICE TIME: 2:15 PM LOCATION / ROOM: [facility]0317/[id number] Hospital Medicine/Primary Attending: Peyman guerrero MD NIGHT COVERAGE BETWEEN 5.30P-7.30A Page [phone] ASSESSMENT AND PLAN HCAP (healthcare-associated pneumonia), suspected [...] infusion 100 mL/hr INTRAVENOUS (PACU) CONTINUOUS Mandy (Pickling Tank Operator) [place] nystatin 5 mL oral liquid (MYCOSTATIN) [...] Radha Loomis Md Thuestad 600 mg at 12/30/17 0746 ipratropium-albuterol [...] Radha Loomis Md Thuestad 10 Units at 12/30/17 1217 insulin [...] (rapid acting) (HumaLOG) SUBCUTANEOUS w MEALS Caroline ([employer]ling [employer] Operator) Garcia 8 Units at 12/30/17 0746 insulin lispro injection (rapid acting) (HumaLOG) SUBCUTANEOUS AT BEDTIME Caroline ([facility]) Garcia 2 Units at 12/29/172010 OBJECTIVE PHYSICAL [...] Patient is already anti-coagulated. Disposition: Home with [facility] PT Plan of care discussed with: Patient and RN SIGNATURE: Peyman guerrero MD DATE: December 30, 2017 TIME: 2:23 AM TAMELA Olson 12/30/2017 3:50 PM Signed CARE MANAGEMENT PROGRESS NOTE SERVICE DATE: 12/30/2017 SERVICE TIME: 3:15PM LOS: 7 days Patient requesting new hospital bed. Currently has bed that was obtained while she was living in [place] in 2013. Patient states it is broken. RX obtained from and referral sent to [employer]. Awaiting response. SIGNATURE: TAMELA Olson PATIENT NAME: Luz Baca DATE: December 30, 2017 TIME: 3:25 PM PAGER/CONTACT #: [phone] Toñito River MD 12/31/2017 7:04 AM Signed [...] ACTIVE PROBLEM LIST Hocm (Hypertrophic Obstructive Cardiomyopathy) ([facility]) Svt (Supraventricular Tachycardia) ([facility]) Carotid artery disease ([facility]) Cad (Coronary Artery Disease) Essential Hypertension Hyperlipidemia Copd (Chronic Obstructive Pulmonary Disease) ([facility]) Sleep Apnea Hh (Hiatus Hernia) Gerd (Gastroesophageal Reflux Disease) Renal Insufficiency Arthritis Numbness and Tingling of Right Leg Depression Diabetes ([facility]) Atrial Fibrillation ([facility]) Diabetes Mellitus Due to Underlying Condition, Uncontrolled, With Stage 3 Chronic Kidney Disease, With Long-Term Current Use of Insulin ([facility]) Summary Dyspnea Heart Failure, Systolic, Acute ([facility]) Obesity Gout Ckd (Chronic Kidney Disease) Stage 3, Gfr 30-59 Ml/Min Pacemaker Ckd (Chronic Kidney Disease), Stage IV ([facility]) Acute Exacerbation of Chf (Congestive Heart Failure) ([facility]) Acute On Chronic Combined Systolic and Diastolic Chf (Congestive Heart Failure) ([facility]) Elevated Troponin Copd With Acute Exacerbation ([facility]) Acute On Chronic Respiratory Failure With Hypoxia ([facility]) Hcap (Healthcare-Associated Pneumonia) PAST MEDICAL HISTORY Diagnosis Date - Arthritis - Atrial fibrillation ([facility]) - CAD (coronary artery disease) stents x9, defibrillator, CABG. Seeing Dr. Cardona - Cardiac defibrillator in place - Cardiomegaly - Carotid artery disease ([facility]) left - CKD (chronic kidney disease), stage IV ([facility]) - COPD (chronic obstructive pulmonary disease) ([facility]) Dr. Cruz - Depression - Diabetes ([facility]) - Diabetic neuropathy ([facility]) - GERD (gastroesophageal reflux disease) - Gout - HH (hiatus hernia) - HOCM (hypertrophic obstructive cardiomyopathy) ([facility]) - HTN (hypertension) - Hyperlipidemia - Morbid obesity with BMI of 40.0-44.9, adult ([facility]) - Pacemaker - Pneumonia h/o pneumonia/bronchitis - Renal insufficiency 2003 post op - Sleep apnea 2011 not on CPAP, unable to tolerate mask 02/2017 - SVT (supraventricular tachycardia) ([facility]) NSVT and questionable VT in 2003 post [...] age 89, HTN - Heart Failure Mother PA - Cancer Father age 71, lung cancer [...] Radha Loomis Md Thuestad 600 mg at 12/30/172117 ipratropium-albuterol 3 [...] BEDTIME Radha Adams) Thuestad 30 Units at 12/30/172114 guaiFENesin-dextromethorphan 100-10 mg/5 mL 5-10 mL oral [...] mg tab(s) (IMDUR) 30 mg ORAL DAILY Klickitatebonie Adams) Thuestad 30 mg at 12/30/17 0746 nitroglycerin sublingual 0.4 mg tab(s) (NITROQUICK) 0.4 mg SUBLINGUAL q 5 MIN PRN Radha Adams) Thuestad 0.9% NaCl 3-5 mL 3-5 mL INTRAVENOUS q 12 H Radhaebonie Adams) Thuestad 5 mL at 12/30/17 213 benzonatate 100 mg cap(s) (TESSALON PERLE) 100 mg ORAL TID Hareesh Singam 100 mg at 12/30/172117 insulin lispro injection (rapid acting) (HumaLOG) SUBCUTANEOUS w MEALS Caroline ([employer]) Garcia 8 Units at 12/30/17 0746 insulin lispro injection (rapid acting) (HumaLOG) SUBCUTANEOUS AT BEDTIME Caroline ([employer]) Garcia 4 Units at 12/30/17 2117 Allergies: [...] stage IV, obesity and sleep apnea Tyrell Tez will do the case himself I have [...] December 31, 2017 TIME: 7:04 AM CSN: [id number] PROGRESS Observed: 12/21/2017 Status: COMPLETED Source: [place] 3:36 PM [facility] REPOSITORY HNO ID: [id number] Author: Jameson Adams) Koffi Service: (none) Author Type: Physician Type: Progress Notes Filed: 12/21/2017 3:36 PM Note Text: Thank you! PROGRESS Observed: 12/21/2017 Status: COMPLETED Source: [place] 2:54 PM [facility] REPOSITORY HNO ID: [id number] Author: Remi Briseno) Brent Service: (none) Author Type: Registered Nurse Type: Progress Notes Filed: 12/21/2017 3:08 PM Note Text: PRIMARY CARE COORDINATION FOLLOW-UP NOTE Provider Action/FYI Discussed below with PCP. PCP asked PCC to call equipment installer to inform of diuretics. TC nia Dave [...] home health nurse draw later this week. Hotshot Superintendent plan for next outreach: Will follow up one week Signature Remi Kennedy RN December 21, 2017 PROGRESS Observed: 12/21/2017 Status: COMPLETED Source: [place] 11:36 AM [facility] OTHER CAMPUS REPOSITORY HNO ID: [id number] Author: Aren Cardona Service: (none) Author Type: Physician Type: Progress Notes Filed: 12/21/2017 1:02 PM Note Text: PERTINENT CARDIAC HISTORY ASHD - CABGx3 2003, PCIx6 RCA 2013, PCIx3 2014 HCM - septal myectomy 2004 HTN DM HL MARLA - unable to tolerate CPAP PAF CRF CHF - systolic, DAMION-I/ARB intolerance (CRF) Cardiomyopathy - ischemic, ICD 2015, revised 11/2016, beta lenny intolerance ADHERENCE TO GUIDELINES DAMION-I or ARB for HF with prior LVEF<40 (NQF 0081) - CRF ASA or Plavix for ASHD (NQF 0067) - restart Beta lenny for ASHD with prior PA or prior LVEF<40 (NQF 0070) - COPD [...] treatment plan. This note was generated using [employer] voice recognition system, and there may be [...] - CKD (chronic kidney disease), stage IV ([facility]) - COPD (chronic obstructive pulmonary disease) ([facility]) Dr. Cruz - Depression - Diabetes ([facility]) - Diabetic neuropathy ([facility]) - GERD (gastroesophageal reflux disease) - Gout - HH (hiatus hernia) - HOCM (hypertrophic obstructive cardiomyopathy) ([facility]) - HTN (hypertension) - Hyperlipidemia - Morbid obesity with BMI of 40.0-44.9, adult ([facility]) - Pacemaker - Pneumonia h/o pneumonia/bronchitis - Renal insufficiency 2003 post op - Sleep apnea 2011 not on CPAP, unable to tolerate mask 02/2017 - SVT (supraventricular tachycardia) ([facility]) NSVT and questionable VT in 2003 post [...] age 89, HTN - Heart Failure Mother PA - Cancer Father age 71, lung cancer [...] is alert and oriented x4. Records from [facility] were reviewed. BNP was quite elevated. Troponin [...] MD CNOV Observed: 12/21/2017 Status: COMPLETED Source: [place] 11:30 AM [facility] OTHER [place] REPOSITORY Office Visit (AGCARDWST) LUZ BACA ([id number]) 1940 F Date Time Provider Department 12/21/17 [...] restart Beta lenny for ASHD with prior PA or prior LVEFANDlt;40 (NQF 0070) - COPD [...] treatment plan. This note was generated using [employer] voice recognition system, and there may be [...] Diagnosis Date - Arthritis - Atrial fibrillation ([facility]) - CAD (coronary artery disease) stents x9, defibrillator, CABG. Seeing Dr. Cardona - Cardiac defibrillator in place - Cardiomegaly - Carotid artery disease ([facility]) left - CKD (chronic kidney disease), stage IV ([facility]) - COPD (chronic obstructive pulmonary disease) ([facility]) Dr. Cruz - Depression - Diabetes ([facility]) - Diabetic neuropathy ([facility]) - GERD (gastroesophageal reflux disease) - Gout - HH (hiatus hernia) - HOCM (hypertrophic obstructive cardiomyopathy) ([facility]) - HTN (hypertension) - Hyperlipidemia - Morbid obesity with BMI of 40.0-44.9, adult ([facility]) - Pacemaker - Pneumonia h/o pneumonia/bronchitis - [...] age 89, HTN - Heart Failure Mother PA - Cancer Father age 71, lung cancer [...] is alert and oriented x4. Records from [facility] were reviewed. BNP was quite elevated. Troponin [...] blood work on Referring Provider: AREN CARDONA [[id number]] Allergies As of Date: 12/21/2017 Noted Allergy [...] Visit Diagnoses:Chronic systolic CHF (congestive heart failure) ([facility]) [I50.22] PAF (paroxysmal atrial fibrillation) ([facility]) [I48.0] Order(s):BASIC METABOLIC PNL [SQBMP] Order #: [id number] FUTURE furosemide (LASIX) 40 mg tabletTake 60 [...] MckeonIDANIA 12/21/2017 11:19 AM >> SEFERINO MCKEON MADec 21, 2017 11:19 AM Not using TIOTROPIUM BROMIDE 2.5 MCG/ACTUATION MIST FOR INHALATION >> Seferino MckeonIDANIA 12/21/2017 11:18 AM >> SEFERINO MCKEON MA [...] 12/21/17 LUDA Observed: 12/21/2017 Status: COMPLETED Source: [place] 12:00 AM [facility] REPOSITORY Patient Outreach (FAMPWS) LUZ BACA ([id number]) 1940 F Date Time Provider Department 12/21/17 REMI KENNEDY (RN) FAMPWS During your visit today, we recorded the following information about you: Remi Kennedy RN 12/21/2017 3:08 PM Signed PRIMARY CARE COORDINATION FOLLOW-UP NOTE Provider Action/FYI Discussed below with PCP. PCP asked PCC to call equipment installer to inform of diuretics. TC nia Dave at Dr. Mcnally' office, left message pt is in CHF and Dr. Cardona restarted diuretics. Call PCC if any questions Patient identified by name and date of . YES Spoke to patient and daughterOctavia Concerns: Discussed pt seeing Noe Adkins yesterday [...] home health nurse draw later this week. Hotshot Superintendent plan for next outreach: Will follow up [...] Mckeon - Fully Assessed Reason for Visit: [employer] Chronic Care [3690] Prescriptions as of 12/21/2017 Sig: FUROSEMIDE 40 [...] 2V FRONTAL/LAT Observed: 12/20/2017 Status: F Source: [place] 4:35 PM [facility] [place] REPOSITORY * * *Final Report* * * [...] by technical change. Small left pleural effusion. Top Lift Cutter: SALINAS Transcribe Date/Time: Dec 21 2017 11:23A Dictated by : ISABELA SOLIS MD This examination was interpreted and the report reviewed and electronically signed by: ISABELA SOLIS MD on Dec 21 2017 11:30AM EST [id number] PROGRESS Observed: 12/20/2017 Status: COMPLETED Source: [place] 4:12 PM [facility] REPOSITORY HNO ID: [id number] Author: Guadalupe Lutz (Tech) Service: (none) Author Type: Bomb Loader Type: Progress Notes Filed: 12/20/2017 4:13 PM [...] PM CNOV Observed: 12/20/2017 Status: COMPLETED Source: [place] 2:30 PM [facility] REPOSITORY Office Visit (PULMWS) LUZ BACA ([id number]) 1940 F Date Time Provider Department 12/20/17 2:30 PM MANDY ADKINS PULMWS During your visit today, we recorded the following information about you: Pulse Respiration Blood pressure 62/minute 18/minute 136/82 Mandy Adkins PA-C 12/21/2017 11:48 AM Addendum [facility] [place] HPI: The patient is here for follow up of dyspnea/hospital follow up. Since the last visit 11/12/17, the patient was evaluated at [place] ED secondary to cough, fevers, chills and increased dyspnea. She was treated with Zpack, prednisone and tamiflu. Patient failed outpatient treatment and presented to [facility] a couple days later. Patient admitted with [...] REVIEW: I have personally and independently reviewed [facility] inpatient chart, including notes, lab values and [...] - NT pro BNP ANDgt; 4000 in [facility]. - Continue with current Lasix 60 mg [...] acceptance of my answers. Mandy Adkins PA-C [facility] [place] [address] [place] [phone] Mandy Adkins PA-C 12/20/2017 3:53 PM Addendum 1. Dyspnea which appears to be due to concomitant known heart disease. - NT pro BNP ANDgt; 4000 in [facility]. - Continue with current Lasix 60 mg [...] [G47.33] Hypoxemia [R09.02] Order(s):XR CHEST 2V FRONTAL/LAT [[id number]] Order #: [id number] FUTURE nystatin (MYCOSTATIN) 100,000 unit/mL suspensionTake 2 [...] - NT pro BNP > 4000 in [facility]. - Continue with current Lasix 60 mg [...] 12/20/17 PROGRESS Observed: 12/20/2017 Status: COMPLETED Source: [place] 2:25 PM [facility] REPOSITORY HNO ID: [id number] Author: Mandy Adkins Service: (none) Author Type: Physician Tester Electronic Scale Type: Progress Notes Filed: 12/21/2017 11:48 AM Note Text: [facility] [place] HPI: The patient is here for follow up of dyspnea/hospital follow up. Since the last visit 11/12/17, the patient was evaluated at [place] ED secondary to cough, fevers, chills and increased dyspnea. She was treated with Zpack, prednisone and tamiflu. Patient failed outpatient treatment and presented to [facility] a couple days later. Patient admitted with [...] REVIEW: I have personally and independently reviewed [facility] inpatient chart, including notes, lab values and [...] - NT pro BNP > 4000 in [facility]. - Continue with current Lasix 60 mg [...] acceptance of my answers. Mandy Adkins PA-C [facility] [place] [facility] [place] [phone] PROGRESS Observed: 12/20/2017 Status: COMPLETED Source: [place] 12:48 PM [facility] REPOSITORY HNO ID: [id number] Author: Remi Briseno) Brent Service: (none) Author Type: Registered Nurse Type: Progress Notes Filed: 12/20/2017 12:54 PM Note Text: TRANSITION CARE MANAGEMENT (TCM) FOLLOW-UP NOTE Provider Action/FYI Discussed with PCP and appt rescheduled for pulmonology today Patient identified by name and date of : YES Spoke to Octavia griffin Concerns: Asked how pt is feeling? States pt's breathing is no better but unable to describe symptoms and she isn't home to ask pt. Discussed with PCP and informed pt has appt with Pulmonology tomorrow with GORGE Xavier. PCP wants pt to see pulmonology to access breathing. Discussed above with daughter and rescheduled appt with Arsen Adkins for this afternoon, verbalized agreement. Hotshot Superintendent plan for next outreach: Will follow up end of week Signature Remi Kennedy RN December 20, 2017 PROGRESS Observed: 12/20/2017 Status: COMPLETED Source: [place] 9:22 AM [facility] REPOSITORY HNO ID: [id number] Author: Jameson Kamara Service: (none) Author Type: Physician Type: Progress Notes Filed: 12/20/2017 9:22 AM Note Text: Reviewed. Please contact patient today for update on symptoms. May need seen today if no better. CNPTOUTREACH Observed: 12/20/2017 Status: COMPLETED Source: [place] 12:00 AM [facility] REPOSITORY Patient Outreach (FAMPWS) KEVENLUZ Franco ([id number]) 1940 F Date Time Provider Department 12/20/17 REMI KENNEDY (ALLYSON) ANTOINE During your visit [...] Arsen Adkins for this afternoon, verbalized agreement. Hotshot Superintendent plan for next outreach: Will follow up [...] Hopson - Fully Assessed Reason for Visit: [employer] Hospital Follow Up [3610] Prescriptions as of [...] 12/20/17 PROGRESS Observed: 12/17/2017 Status: COMPLETED Source: [place] 4:37 PM [facility] REPOSITORY [facility] ID: [id number] Author: Cindy Gerber [facility] Service: (none) Author Type: Registered Nurse Type: Progress Notes Filed: 12/18/2017 1:06 PM Note Text: TRANSITION CARE MANAGEMENT (TCM) INITIAL CONTACT Provider Action/I: Pt was in [facility] but continues to be SOB and no better per daughter. Initial contact with patient post discharge, spoke to Octavia. Patient identified by name and . SUMMARY: -Pt discharged from [facility] on 12/15/17. -Follow up appointment on 12/21/17 [...] None BRIEF HOSPITAL COURSE: Was seen ??at [place] ED and placed on Zpack, prednisone, and tamiflu on 12/06. Have ?gotten progressively worse since then. She is normally on 2.5 liters O2 but has required more in the past week. Patient was seen by her primary care doctor who wanted her further evaluated at [facility]. ? ? Hospital course: ? She had [...] ? JONA Observed: 12/17/2017 Status: COMPLETED Source: [place] 12:00 AM CLINIC OTHER CAMPUS REPOSITORY Telephone (AGCARDPOB) LUZ BACA ([id number]) 1940 F Date Time Provider Department 12/17/17 AREN CARDONA ([facility]) AGCARDROSA During your visit today, we recorded the following information about you: Bev Sam 12/17/2017 11:08 AM Signed Please contact pt's daughter Octavia Soliman. pt is requesting a sooner f/u. Per pt daughter hosp f/u should be 2 wks from d/c. Bev Sam 12/17/2017 11:06:51 Timi Mcqueen, RN, RN 12/17/2017 11:27 AM Signed Patient recently discharged from [facility], please verify when you would like to [...] Hopson - Fully Assessed Reason for Visit: Appointment [...] Status:Closed by SEFERINO MCKEON MA on 12/17/17 ELÍASTOUTRRADHA Observed: 12/17/2017 Status: COMPLETED Source: [place] 12:00 AM [facility] REPOSITORY Patient Outreach (INTMWS) LUZ BACA ([id number]) 1940 F Date Time Provider Department 12/17/17 CINDY ANDREA During your visit today, we recorded the following information about you: Cindy Gerber RN 12/18/2017 1:06 PM Signed TRANSITION CARE MANAGEMENT (TCM) INITIAL CONTACT Provider Action/FYI: Pt was in [facility] but continues to be SOB and ANDquot;no betterANDquot; per daughter. Initial contact with patient post discharge, spoke to Octavia. Patient identified by name and . SUMMARY: -Pt discharged from [facility] on 12/15/17. -Follow up appointment on 12/21/17 with Adrile Worrell CNP. -Medication review done reviewed briefly [...] None BRIEF HOSPITAL COURSE: Was seen ??at [place] ED and placed on Zpack, prednisone, and tamiflu on 12/06. Have ?gotten progressively worse since then. She is normally on 2.5 liters O2 but has required more in the past week. Patient was seen by her primary care doctor who wanted her further evaluated at [facility]. ? ? Hospital course: ? She had [...] Hopson - Fully Assessed Reason for Visit: [employer] Hospital Follow Up [3610] Cmt: [facility] 12/10- Prescriptions as of 12/17/2017 Sig: INSULIN [...] CASE MANAGEM Observed: 12/15/2017 Status: COMPLETED Source: [place] 3:18 PM CLINIC OTHER CAMPUS REPOSITORY HNO ID: [id number] Author: Vanessa Loomis (Rn) ALLYSON Gonzalez Service: Case Management Author Type: Registered Nurse Type: Care Mgt Progress Note Filed: 12/15/2017 3:29 PM Note Text: CARE MANAGEMENT DISCHARGE NOTE SERVICE DATE: 12/15/2017 SERVICE TIME: 3:19 PM LOS: 5 days Admission Date: 12/10/2017 DISCHARGE ARRANGEMENT (list agency and phone number) Home care Provider: [facility] CAREGIVER ASSESSMENT: Caregiver is ready, willing and able to meet the patient's needs as recommended by the inter-professional team? Yes Patient's transition needs and plan for meeting these needs: self care, HHC Does the patient have an acute stroke diagnosis, or has the patient had a stroke during this admission? No HANDOFF COMMUNICATION: bedside RN Meenakshi CHU Remi Marlon [phone] this note routed to her. TRANSPORTATION ARRANGEMENTS: Car family ADDITIONAL CONTACT RESOURCES: Chronic 2.5 L n/c with [employer] , family to bring portable for dc needs. From home with dtr. Pt is an assist with ADL's. Dtr is able to assist 10/05. Discharge Information ED to Hosp-Admission (Current) from 12/10/2017 in [facility] Medical Follow-Up Appointment Specialty PCP / patient will see the certified nurse practitioner in the same practice as Dr. Jameson Kamara Provider Name ELÍAS Mayorga Dr. did not have availability within requested timeframe Address [address] [place] [address], [facility] Practice check in is located in the [facility], [place] [id number] Appointment Date 12/21/17 Appointment Time 1:00PM Additonal Instructions Patient should bring the following to appointment: Picture ID, Insurance Card, Copay (if applicable) and Medications List. Please provide a minimum of 24 hours' notice for cancelations/rescheduling. Home Health Care Agency [facility] IM letter given and explained to Luz and her daughter on 12/15/17 SIGNATURE: Vanessa Gonzalez RN PATIENT NAME: Luz Baca DATE: December 15, 2017 TIME: 3:18 PM PAGER/CONTACT #: [phone] CNDS Observed: 12/15/2017 Status: COMPLETED Source: READING 2:07 PM CLINIC OTHER CAMPUS REPOSITORY O ID: [id number] Author: Peyman Guerrero Service: Hospital Medicine Author [...] Kamara MD ? Other Medical Team Members: Gore Stitcher: consult ? Endocrine: consult ? Treasury Consultant: consult The Reason I was in the [...] since then. ? ? Was seen at [place] ED and placed on Zpack, prednisone, and tamiflu on 12/06. Have gotten progressively worse since then. She is normally on 2.5 liters O2 but has required more in the past week. Patient was seen by her primary care doctor who wanted her further evaluated at [facility]. ? Hospital course: She had been admitted [...] 2.3 2.1 Luz Baca Home Medication Instructions ETHEL:[id number] Printed on:12/15/17 1413 Medication Information albuterol (PROVENTIL) 5 mg/mL nebu [...] These instructions explain what you or your livestock caretaker need to do to continue your care at home or at another healthcare facility ? Please go over these instructions with your nurse and livestock caretaker. ? If you are not sure about [...] CONSULT PROG Observed: 12/15/2017 Status: COMPLETED Source: READING 12:35 PM CLINIC OTHER CAMPUS REPOSITORY HNO ID: [id number] Author: Maye Sevilla Service: Pulmonary Disease Author [...] pathology data. Maye Sevilla MD Staff, Respiratory [place] [facility] Pager #[phone] SUBJECTIVE CHIEF COMPLAINT: Shortness of breath INTERVAL [...] ORAL BID sodium chloride 0.65 % 2 Mott (AYR, OCEAN) 2 Mott EACH NOSTRIL PRN insulin glargine 30 Units [...] - - - 64 18 - - 12/14/17 2208 - - - 63 18 93 % [...] Recent Labs 12/15/17 0512 12/14/17 0554 12/13/17 05 TPROT 7.5 7.6 7.6 ALB 4.1 3.8* 3.9 ALT 21 19 20 AST 25 21 19 ALKPHOS 121* 108 99 TBILI 0.3 0.3 0.3 Cardiac Enzymes ABGs SIGNATURE: Maey Sevilla MD PATIENT NAME: Luz Baca DATE: December 15, 2017 TIME: 12:38 PM PAGER/CONTACT #: [phone] CONSULT PROG Observed: 12/15/2017 Status: COMPLETED Source: READING 11:27 AM CLINIC OTHER CAMPUS REPOSITORY HNO ID: [id number] Author: Shruti Nair Service: Endocrinology Author Type: [...] place - Cardiomegaly - Carotid artery disease ([facility]) left - CKD (chronic kidney disease), stage IV ([facility]) - COPD (chronic obstructive pulmonary disease) ([facility]) Dr. Cruz - Depression - Diabetes ([facility]) - Diabetic neuropathy ([facility]) - GERD (gastroesophageal reflux disease) - Gout - HH (hiatus hernia) - HOCM (hypertrophic obstructive cardiomyopathy) ([facility]) - HTN (hypertension) - Hyperlipidemia - Morbid obesity with BMI of 40.0-44.9, adult ([facility]) - Pacemaker - Pneumonia h/o pneumonia/bronchitis - Renal insufficiency 2003 post op - Sleep apnea 2011 not on CPAP, unable to tolerate mask 02/2017 - SVT (supraventricular tachycardia) ([facility]) NSVT and questionable VT in 2003 post op CURRENT MEDICATION: Current Facility-Administered Medications: doxycycline hyclate 100 mg cap(s) (VIBRAMYCIN) 100 mg ORAL q 12 H Peyman Cesar 100 mg at 12/15/17 0816 cefdinir 300 mg (OMNICEF) 300 mg ORAL BID Peyman Cesar 300 mg at 12/15/17 0816 sodium chloride 0.65 % 2 Mott (AYR, OCEAN) 2 Mott EACH NOSTRIL PRN Storm Hernandezm 2 Mott at 12/13/17 0828 insulin lispro 21 Units [...] (TESSALON PERLE) 100 mg ORAL TID Gloria A Chukwuani 100 mg at 12/15/17 0816 furosemide 40 mg tab(s) (LASIX) 40 mg ORAL DAILY Clay Raya Amalfitano 40 mg at 12/15/17 0816 apixaban 5 mg tab(s) (ELIQUIS) 5 mg ORAL BID Gloria A Chukwuani 5 mg at 12/15/17815 guaiFENesin-dextromethorphan 100-10 mg/5 mL 5-10 mL oral liquid (ROBITUSSIN DM) 5-10 mL ORAL q 6 H PRN Gloria A Chukwuani 10 mL at 12/13/17 0442 guaiFENesin 600 mg ER tab(s) (MUCINEX) 600 mg ORAL q 12 H Gloria A Chukwuani 600 mg at 12/15/17 0816 insulin glargine 50 Units injection (long acting) (LANTUS) 50 Units SUBCUTANEOUS DAILY Som Jodie 50 Units at 12/15/17814 insulin lispro injection (rapid acting) (HumaLOG) SUBCUTANEOUS w MEALS Som Jodie 3 Units at 12/15/17815 insulin lispro injection (rapid acting) (HumaLOG) SUBCUTANEOUS AT BEDTIME Som Jodie 1 Units at 12/14/172035 gabapentin 600 mg cap(s) (NEURONTIN) 600 mg ORAL BID Gloria A Chukwuani 600 mg at 12/15/1716 simvastatin 40 mg tab(s) (ZOCOR) 40 mg ORAL AT BEDTIME Gloria A Chukwuani 40 mg at 12/14/172035 colchicine 0.6 mg tab(s) 0.6 mg ORAL DAILY Gloria A Chukwuani 0.6 mg at 12/15/1715 isosorbide mononitrate ER 30 mg tab(s) (IMDUR) [...] 65 - 100 mg/dL Final Comment: Meter ID:[id number] SIGNATURE: Shruti Nair MD DATE: December 15, 2017 COMP METABOLIC PANEL Collected: 12/15/2017 Status: F Source: READING 5:12 AM CLINIC OTHER CAMPUS REPOSITORY TYPE [...] mg/dL Glucose High 212 Result Comment: The [place] Diabetes Association (ADA) provides guidance for cutoff [...] Standards of Medical Care in Diabetes 2016, [place] Diabetes Association. Diabetes Care. 2016.39(Suppl 1). LAB [...] has been calibrated to be traceable to IDNV. An eGFR <60 mL/min/1.73m2 for >3 months is consistent with chronic kidney disease. Refer to KDOQI guidelines for clinical interpretation. In patients with unstable renal function, e.g. those with acute kidney injury, the eGFR may not accurately reflect actual GFR. Performed By: #### CMP, MG1, CBC #### [facility] [address] [facility] [phone] MAGNESIUM Collected: 12/15/2017 Status: F Source: READING 5:12 AM CLINIC OTHER CAMPUS REPOSITORY TYPE CODE TESTS RESULT OUT OF REFERENCE UNITS RANGE LAB MG 1.7-2.3 mg/dL High Magnesium 2.4 Performed By: #### CMP, MG1, CBC #### [facility] [address] [facility] [phone] CBC Collected: 12/15/2017 Status: F Source: READING 5:12 AM [facility] REPOSITORY TYPE CODE TESTS RESULT OUT OF [...] Performed By: #### CMP, MG1, CBC #### [facility] [address] [facility] [phone] CONSULT PROG Observed: 12/14/2017 Status: COMPLETED Source: READING 12:33 PM [facility] REPOSITORY HNO ID: [id number] Author: Maye Sevilla Service: Pulmonary Disease Author [...] pathology data. Maye Sevilla MD Staff, Respiratory [place] [facility] Pager #[phone] SUBJECTIVE CHIEF COMPLAINT: INTERVAL HPI:Luz Baca is [...] Facility-Administered Medications: sodium chloride 0.65 % 2 Mott (AYR, OCEAN) 2 Mott EACH NOSTRIL PRN insulin lispro 21 Units [...] 14, 2017 TIME: 12:33 PM PAGER/CONTACT #: [phone] PROGRESS Observed: 12/14/2017 Status: COMPLETED Source: READING 11:54 AM CLINIC OTHER CAMPUS REPOSITORY O ID: [id number] Author: Peyman Guerrero Service: Hospital Medicine Author Type: Physician Type: Progress Notes Filed: 12/14/2017 12:03 PM Note Text: INPATIENT PROGRESS NOTE SERVICE DATE: 12/14/2017 SERVICE TIME: 11:54 AM Subjective CHIEF COMPLAINT: SOB is getting better, she feels better today but still coughing Denies any CP/epigastric discomfort No fever,chills No acute overnight issues Current hospital medications: sodium chloride 0.65 % 2 Mott (AYR, OCEAN) 2 Mott EACH NOSTRIL PRN insulin lispro 21 Units [...] input Chronic atrial fibrillation Status post cardioversion 2010 ICD, single ventricular lead with predominant pacing [...] bpm. She will follow-up with her primary marketing account executive Dr. Cardona upon discharge. f/u cardiology recs [...] December 14, 2017 TIME: 12:03 PM PAGER: [phone] PLAN OF CARE Observed: 12/14/2017 Status: COMPLETED Source: READING 10:21 AM [facility] OTHER CAMPUS REPOSITORY HNO ID: [id number] Author: Vanessa Loomis (Rn) ALLYSON Gonzalez Service: Case Management Author Type: Registered Nurse Type: Plan of Care Filed: 12/14/2017 2:34 PM Note Text: MULTIDISCIPLINARY ROUNDS SERVICE DATE: 12/14/2017 ADMISSION DATE: 12/10/2017 SERVICE TIME: 10:21 AM ANTICIPATED D/C DATE: 2-3 days Problem List: ACTIVE PROBLEM LIST Hocm (Hypertrophic Obstructive Cardiomyopathy) ([facility]) Svt (Supraventricular Tachycardia) ([facility]) Carotid Artery Disease ([facility]) Cad (Coronary Artery Disease) Essential Hypertension Hyperlipidemia Copd (Chronic Obstructive Pulmonary Disease) ([facility]) Sleep Apnea Hh (Hiatus Hernia) Gerd (Gastroesophageal Reflux Disease) Renal Insufficiency Arthritis Numbness and Tingling of Right Leg Depression Diabetes ([facility]) Atrial Fibrillation ([facility]) Diabetes Mellitus Due to Underlying Condition, Uncontrolled, With Stage 3 Chronic Kidney Disease, With Long-Term Current Use of Insulin ([facility]) Summary Dyspnea Heart Failure, Systolic, Acute ([facility]) Obesity Gout Ckd (Chronic Kidney Disease) Stage 3, Gfr 30-59 Ml/Min Pacemaker Ckd (Chronic Kidney Disease), Stage IV ([facility]) Acute Exacerbation of Chf (Congestive Heart Failure) ([facility]) Acute On Chronic Combined Systolic and Diastolic Chf (Congestive Heart Failure) ([facility]) Elevated Troponin Copd With Acute Exacerbation ([facility]) Acute On Chronic Respiratory Failure With Hypoxia ([facility]) Attendees Present at Rounds: Fire Prevention Forester: Vanessa Patient: Luz Baca Staff Nurse: Delma [...] Vital Signs Stable, Control Chest Pain, Adequate Oxygenation,;VICE PRESIDENT PROCESS, Cardiac Enzymes, K, Mg, Hgb/Hct Levels Within Normal;Displays No Signs of Ectopy Cardiac Goal Target Achievement Date: 12/14/17Risk for Infection Intervention(s) Plan: Assess and Administer Medications;Assess Vital Signs;Assess Signs/Symptom of Infection;Dressing Changes per Protocol;Notify LIP for Changes to Baseline Status;Provide Urinary Catheter Care Risk for Infection Goals/Outcomes: Patient Without Signs/Symptoms of Infections Risk For Infection Goal Target Achievement Date: 12/14/17 Mobility Intervention(s) Plan: [place] Safety Measures;Pain Management;Notify LIP for Changes to [...] December 14, 2017 TIME: 10:21 AM CSN: [id number] COMP METABOLIC PANEL Collected: 12/14/2017 Status: F Source: READING 5:54 AM CLINIC OTHER CAMPUS REPOSITORY TYPE [...] mg/dL Glucose High 257 Result Comment: The [place] Diabetes Association (ADA) provides guidance for cutoff [...] Standards of Medical Care in Diabetes 2016, [place] [employer]. Diabetes Care. 2016.39(Suppl 1). LAB [...] Performed By: #### CMP, MG1, CBC #### [facility] [address] [place] [address] MAGNESIUM Collected: 12/14/2017 Status: F Source: READING 5:54 AM [facility] REPOSITORY TYPE CODE TESTS RESULT OUT OF REFERENCE UNITS RANGE LAB MG 1.7-2.3 mg/dL Magnesium 2.3 Performed By: #### CMP, MG1, CBC #### [facility] [address] [place] [address] CBC Collected: 12/14/2017 Status: F Source: READING 5:54 AM [facility] OTHER [place] REPOSITORY TYPE CODE TESTS RESULT OUT OF [...] Performed By: #### CMP, MG1, CBC #### [facility] [address] [place] [address] NURSING PROG Observed: 12/13/2017 Status: COMPLETED Source: READING 10:01 PM CLINIC OTHER CAMPUS REPOSITORY HNO ID: [id number] Author: Zeina (Rn) Jacobo, RN Service: (none) Author Type: Registered Nurse Type: Nursing Progress Note Filed: 12/13/2017 10:02 PM Note Text: Patients bs-64 food and beverage given with recheck at 113. Dr Feliciano notfiied with HS Lantus dose changed from 50 to 30. Will continue to monitor. CONSULT PROG Observed: 12/13/2017 Status: COMPLETED Source: READING 6:23 PM CLINIC OTHER CAMPUS REPOSITORY HNO ID: [id number] Author: Som Feliciano Service: Endocrinology Author Type: [...] hospital medications: sodium chloride 0.65 % 2 Mott (AYR, OCEAN) 2 Mott EACH NOSTRIL PRN [START ON 12/14/2017] insulin [...] Urine Negative 12/10/2017 Nitrites Negative 12/10/2017 Specific [place], Ur 1.010 12/10/2017 Protein, Urine Negative 12/10/2017 [...] THERAPY NT Observed: 12/13/2017 Status: COMPLETED Source: READING 3:26 PM CLINIC OTHER CAMPUS REPOSITORY HNO ID: [id number] Author: Shakila (Elier/Magali Busch Service: Occupational Therapy Author Type: Occupational Therapist Type: Therapy (PT/OT/Speech/Resp) Filed: 12/13/2017 4:44 PM Note Text: Occupational Therapy Evaluation SERVICE DATE: 12/13/2017 SERVICE TIME: 1444 to 1512 (includes chart review) ROOM: [place] [address] Recommended Discharge Disposition: Home OT Recommended Discharge [...] daily living (ADL) Interventions Provided: Evaluation;Therapeutic Activity (73040);Self Skilled Nursing Management (22072) $ Evaluation-Low (63231) Billed Units: 1 unit Therapeutic Activity (22704) Treatment Minutes: 6 0 units Skilled Intervention(s): [...] safe technique for sit to supine. Self Skilled Nursing Management (60106) Treatment Minutes: 9 1 unit Skilled Intervention(s): [...] on own or borrow short term from [facility]); [facility] flyer provided. Pt provided with handout [...] December 13, 2017 TIME: 3:26 PM PAGER: [phone] THERAPY NT Observed: 12/13/2017 Status: COMPLETED Source: READING 3:15 PM CLINIC OTHER CAMPUS REPOSITORY HNO ID: [id number] Author: Shakila Busch (Ot/L) Service: Occupational Therapy Author Type: Occupational Therapist Type: Therapy (PT/OT/Speech/Resp) Filed: 12/13/2017 3:15 PM Note Text: OCCUPATIONAL THERAPY MISSED VISIT SERVICE DATE: 12/13/2017 SERVICE TIME: 1314 to 1319 ROOM: [place] [address] Attempted Evaluation. Patient not seen due to Test/Procedure: Pacemaker interrogation at bedside. Will re-attempt as schedule allows. SIGNATURE: MARY JO Nguyen PATIENT NAME: Luz Andersonlain DATE: December 13, 2017 TIME: 3:15 PM PAGER/CONTACT #: [phone] CONSULT PROG Observed: 12/13/2017 Status: COMPLETED Source: READING 1:36 PM CLINIC OTHER CAMPUS REPOSITORY HNO ID: [id number] Author: Clay Garcia Service: Clinical Cardiology Author Type: Physician Type: Consult Progress Note Filed: 12/13/2017 2:30 PM Note Text: [facility] CONSULT HISTORY AND PHYSICAL Luz Baca [id number] CONSULTING SERVICE: Clay Garcia DO, MEAGAN, VINNYP, [...] bpm. She will follow-up with her primary marketing account executive Dr. Cardona upon discharge. Staff Signature: Clay Garcia DO, MEAGAN, NANCY, FACJERMAINE. Date of Service: 12/13/17 Time of [...] She is followed by Dr. Cardona in [place] as her primary marketing account executive. She did have CABG ?2 with a [...] EF of 50%. This was done in [facility]. MEDICATIONS: Prior to Admission Medications reviewed in [...] No history of dysuria, frequency or incontinence RETURN TO FACTORY CLERK: Negative for abnormal vaginal bleeding, abnormal vaginal [...] report reviewed SIGNATURE: Clay Garcia DO PAGER: [phone] DATE of SERVICE: 12/13/2017 TIME of SERVICE: 0945 ADDENDUM 12/13/17, 1420 Device interrogation reveals possible oversensing of T waves and this was reprogrammed. Low rate is 60 ppm. No therapies delivered. She will follow up with Device clinic as soon as discharged to review further. Clay Garcia DO, FACC, FCCP, FACOI CONSULT PROG Observed: 12/13/2017 Status: COMPLETED Source: READ[place] 12:54 PM CLINIC OTHER CAMPUS REPOSITORY HNO ID: [id number] Author: Maye Sevilla Service: Pulmonary Disease Author Type: Physician Type: Consult Progress Note Filed: 12/14/2017 12:48 PM Note Text: [facility]ORY [place] [facility] IN-PATIENT CONSULT PROGRESS NOTE SERVICE [...] pathology data. Maye Sevilla MD Staff, Respiratory [place] [facility] Pager #[phone] SUBJECTIVE CHIEF COMPLAINT: Shortness of breath INTERVAL HPI:Luz Baca is a 77 year old female status since previous days visit has been about the same. she continue complaining about shortness of breath and wheezing. No fevers, chills, night sweats, chest pain, abd pain or leg swelling. No events over night. MEDICATIONS: Current Facility-Administered Medications: sodium chloride 0.65 % 2 Mott (AYR, OCEAN) 2 Mott EACH NOSTRIL PRN pantoprazole DR 40 mg [...] be due to remote hemothorax. Cardiomegaly SIGNATURE: Jeny 2017 Ebonie Sevilla MD PATIENT NAME: Luz Baca DATE: December 13, 2017 TIME: 12:55 PM PAGER/CONTACT #: [phone] In PROGRESS Observed: 12/13/2017 Status: COMPLETED Source: READ[place] 12:50 PM CLINIC OTHER CAMPUS REPOSITORY HNO ID: [id number] Author: Peyman Guerrero Service: Hospital Medicine Author Type: Physician Type: Progress Notes Filed: 12/13/2017 1:00 PM Note Text: INPATIENT PROGRESS NOTE SERVICE DATE: 12/13/2017 SERVICE TIME: 12:50 PM Subjective CHIEF COMPLAINT: Cough and SOB slowly getting better, Denies any CP/epigastric discomfort No fever,chills HR is dropping into 40s intermittently, is aware No acute overnight issues Current hospital medications: sodium chloride 0.65 % 2 Mott (AYR, OCEAN) 2 Mott EACH NOSTRIL PRN pantoprazole DR 40 mg [...] disease, with long-term current use of insulin ([facility]) POA: Yes ?Assessment AND?Plan: HBAIC 16.1 on [...] December 13, 2017 TIME: 12:59 PM PAGER: [phone] NURSING PROG Observed: 12/13/2017 Status: COMPLETED Source: READING 11:12 AM [facility] REPOSITORY HNO ID: [id number] Author: Amaris OsheaRn) ALLYSON Coffey Service: Nursing Author Type: Registered Nurse Type: Nursing Progress Note Filed: 12/13/2017 11:33 AM Note Text: Nursing Progress Note Patient Name: Luz Baca Patient Location: [id number] Pt. HR drops into the 40's intermittently despite pacemaker. Page placed to Dr. Meza, awaiting return call. [address] Meza, Last pacer/AICD interrogation in July, will place an order to interrogate. This note was completed by: Amaris Coffey RN CASE MANAGEM Observed: 12/13/2017 Status: COMPLETED Source: READING 11:09 AM [facility] REPOSITORY HNO ID: [id number] Author: Vanessa OsheaRn) ALLYSON Gonzalez Service: Case Management Author Type: Registered Nurse Type: Care Mgt Progress Note Filed: 12/13/2017 11:14 AM Note Text: CARE MANAGEMENT PROGRESS NOTE SERVICE DATE: 12/13/2017 SERVICE TIME: 11:09 AM LOS: 3 days EMR reviewed. Met with Luz to review her dc plan. Chose 1- [facility] ( ref sent) 2- [facility]. She is on Chronic 2.5 L n/c with [employer], currently on 3L n/c possible increase needs at dc. From home with daughter. Pt is an assist with ADL's. Dtr is able to assist 10/05. SIGNATURE: Vanessa Gonzalez RN PATIENT NAME: Luz Baca DATE: December 13, 2017 TIME: 11:09 AM PAGER/CONTACT #: [phone] CBC Collected: 12/13/2017 Status: F Source: READING 5:22 AM [facility] OTHER CAMPUS REPOSITORY TYPE CODE TESTS RESULT [...] Performed By: #### CBC, CMP, MG1 #### [facility] [address] [place] [address] COMP METABOLIC PANEL Collected: 12/13/2017 Status: F Source: READ[place] 5:22 AM [facility] OTHER [place] REPOSITORY TYPE CODE TESTS RESULT OUT OF REFERENCE UNITS RANGE LAB TP 6.3-8.0 g/dL Protein, Total 7.6 LAB ALB 3.9-4.9 g/dL Albumin 3.9 LAB CA 8.5-10.2 mg/dL Calcium, Total 8.7 LAB TBIL 0.2-1.3 mg/dL Bilirubin, Total 0.3 LAB ALKP 32-117 U/L Alkaline Phosphatase 99 LAB AST 13-35 U/L AST 19 LAB GLU 74-99 mg/dL Glucose High 169 Result Comment: The [place] Diabetes Association (ADA) provides guidance for cutoff [...] Standards of Medical Care in Diabetes 2016, [place] [employer]. Diabetes Care. 2016.39(Suppl 1). LAB [...] Performed By: #### CBC, CMP, MG1 #### [facility] [address] [place], [place] [phone] MAGNESIUM Collected: 12/13/2017 Status: F Source: READING 5:22 AM [facility] REPOSITORY TYPE CODE TESTS RESULT OUT OF REFERENCE UNITS RANGE LAB MG 1.7-2.3 mg/dL Magnesium 2.1 Performed By: #### CBC, CMP, MG1 #### [facility] [address] [place] [phone] CONSULT PROG Observed: 12/12/2017 Status: COMPLETED Source: READING 4:10 PM [facility] OTHER CAMPUS REPOSITORY HNO ID: [id number] Author: Clay Garcia Service: Clinical Cardiology Author Type: Physician Type: Consult Progress Note Filed: 12/12/2017 4:16 PM Note Text: [facility] CONSULT HISTORY AND PHYSICAL Luz Baca [id number] CONSULTING SERVICE: Clay Garcia, DO, FACC, FCCP, [...] standpoint. She will follow-up with her primary marketing account executive Dr. Cardona upon discharge. Staff Signature: Clay [...] She is followed by Dr. Cardona in [place] as her primary marketing account executive. She did have CABG ?2 with a [...] EF of 50%. This was done in [facility]. MEDICATIONS: Prior to Admission Medications reviewed in [...] No history of dysuria, frequency or incontinence RETURN TO FACTORY CLERK: Negative for abnormal vaginal bleeding, abnormal vaginal [...] report reviewed SIGNATURE: Clay Garcia DO PAGER: [phone] DATE of SERVICE: 12/12/2017 TIME of SERVICE: 1000 CASE MANAGEM Observed: 12/12/2017 Status: COMPLETED Source: [place] 2:46 PM CLINIC OTHER CAMPUS REPOSITORY HNO ID: [id number] Author: Jia Means (Sw) Service: (none) Author Type: Director Of Labor And Delivery Type: Care Mgt Progress Note Filed: 12/12/2017 [...] 12, 2017 TIME: 2:47 PM PAGER/CONTACT #: [phone] CONSULT Observed: 12/12/2017 Status: COMPLETED Source: [place] 12:37 PM CLINIC OTHER CAMPUS REPOSITORY O ID: [id number] Author: Som Feliciano Service: Endocrinology Author Type: Physician Type: Consults Filed: 12/12/2017 12:54 PM Note Text: INITIAL CONSULT ENDOCRINOLOGY SERVICE DATE: 12/12/2017 SERVICE TIME: 12:38 PM Requesting Provider: Gloria Montana Opinion/Advice Regarding: Management of Diabetes Mellitus Type [...] progressively declining since then. Was seen at [place] ED and placed on Zpack, prednisone, and tamiflu on 12/06. Have gotten progressively worse since then. She is normally on 2.5 liters O2 but has required more in the past week.?Patient was seen by her primary care doctor who wanted her further evaluated at [facility]. ?Patient does not exercise. Last HbA1c was [...] place - Cardiomegaly - Carotid artery disease ([facility]) left - CKD (chronic kidney disease), stage IV ([facility]) - COPD (chronic obstructive pulmonary disease) ([facility]) Dr. Cruz - Depression - Diabetes ([facility]) - Diabetic neuropathy ([facility]) - GERD (gastroesophageal reflux disease) - Gout - HH (hiatus hernia) - HOCM (hypertrophic obstructive cardiomyopathy) ([facility]) - HTN (hypertension) - Hyperlipidemia - Morbid obesity with BMI of 40.0-44.9, adult ([facility]) - Pacemaker - Pneumonia h/o pneumonia/bronchitis - Renal insufficiency 2003 post op - Sleep apnea 2011 not on CPAP, unable to tolerate mask 02/2017 - SVT (supraventricular tachycardia) ([facility]) NSVT and questionable VT in 2003 post [...] age 89, HTN - Heart Failure Mother PA - Cancer Father age 71, lung cancer [...] CONSULT PROG Observed: 12/12/2017 Status: COMPLETED Source: [place] 10:54 AM CLINIC OTHER CAMPUS REPOSITORY O ID: [id number] Author: Malcolm Yo Service: Pulmonary Disease Author [...] better so re-presented this time at the [place] ED a couple of days later. ? [...] to 2.0. ? Assessment and Plan: Mrs. Baac presents with acute on chronic hypoxic/hypercarbic respiratory [...] THERAPY NT Observed: 12/12/2017 Status: COMPLETED Source: [place] 10:34 AM CLINIC OTHER CAMPUS REPOSITORY HNO ID: [id number] Author: Jesi (Pt) Osmany Service: Physical Therapy Author Type: Physical Therapist Type: Therapy (PT/OT/Speech/Resp) Filed: 12/12/2017 10:42 AM Note Text: Physical Therapy Evaluation SERVICE DATE: 12/12/2017 SERVICE TIME: 932 to 100 ROOM: [place] [address] Recommended Discharge Disposition: Home PT Recommended Discharge [...] symptoms and signs-other Interventions Provided: Evaluation;Gait Training (43712) $ Evaluation-Low (50939) Billed Units: 1 unit Gait Training (14139) Treatment Minutes: 8 1 unit Skilled Intervention(s): [...] 3065 PROGRESS Observed: 12/12/2017 Status: COMPLETED Source: [place] 9:52 AM CLINIC OTHER CAMPUS REPOSITORY O ID: [id number] Author: Gloria Montana Service: Hospital Medicine Author Type: Physician Type: [...] ?? Weakness/debility:PT reccs home PT ? Dr Widler will assume care tomorrow 12/13/16 SIGNATURE: Gloria Montana MD PATIENT NAME: Luz Baca DATE: December 12, 2017 TIME: 9:53 AM PAGER: [phone] NURSING PROG Observed: 12/12/2017 Status: COMPLETED Source: READING 9:48 AM CLINIC OTHER CAMPUS REPOSITORY HNO ID: [id number] Author: Leighann (Rn) ALLYSON Malhotra Service: (none) Author Type: Registered Nurse Type: Nursing Progress Note Filed: 12/12/2017 6:55 PM Note Text: Nursing Progress Note Patient Name: Luz Baca Patient Location: [id number] Daily Note: 0810- Pt resting in bed. [...] RN CBC Collected: 12/12/2017 Status: F Source: READING 5:02 AM CLINIC OTHER CAMPUS REPOSITORY TYPE [...] Performed By: #### CBC, CMP, MG1 #### [facility] [address] [facility] [phone] #### PROCAL #### [facility] [address] [place] [address] COMP METABOLIC PANEL Collected: 12/12/2017 Status: F Source: READING 5:02 AM CLINIC OTHER CAMPUS REPOSITORY TYPE [...] mg/dL Glucose High 117 Result Comment: The [place] Diabetes Association (ADA) provides guidance for cutoff [...] Standards of Medical Care in Diabetes 2016, [place] [employer]. Diabetes Care. 2016.39(Suppl 1). LAB [...] Performed By: #### CBC, CMP, MG1 #### [place] [phone] #### PROCAL #### [place] [address] MAGNESIUM Collected: 12/12/2017 Status: F Source: READING 5:02 AM [facility] OTHER [place] REPOSITORY TYPE CODE TESTS RESULT OUT OF REFERENCE UNITS RANGE LAB MG 1.7-2.3 mg/dL Magnesium 1.9 Performed By: #### CBC, CMP, MG1 #### [place] [phone] #### PROCAL #### [place] [address] PROCALCITONIN Collected: 12/12/2017 Status: F Source: READING 5:02 AM [facility] OTHER [place] REPOSITORY TYPE CODE TESTS RESULT OUT OF REFERENCE UNITS RANGE LAB PROCLT <0.09 ng/mL Procalcitonin 0.06 Result Comment: For a guided interpretation of test results, please visit the Change in Procalcitonin Calculator, [email or web address]. Performed By: #### CBC, CMP, MG1 #### [phone] #### PROCAL #### [place] [address] PLAN OF CARE Observed: 12/11/2017 Status: COMPLETED Source: READING 7:18 PM CLINIC OTHER [place] REPOSITORY HNO ID: [id number] Author: Som Feliciano Service: Endocrinology Author Type: [...] scale Monitor blood sugar QAC AND HS. Smo Feliciano MD December 11, 2017 Observed: 12/11/2017 Status: F Source: READING SCORED SPECIMEN 6:08 PM [facility] REPOSITORY Smear Result - Respiratory culture rejected due to the presence of oral contamination. Specimen contains too many squamous epithelial cells. Clinic Desk/Hospital Nursing Station notified. Spoke to Aleisha FROM [facility] 12/11 @5642 BY TREVER Performed By: #### SCORE #### [facility] [address] [place] [address] CONSULT Observed: 12/11/2017 Status: COMPLETED Source: READING 3:59 PM [facility] REPOSITORY HNO ID: [id number] Author: Clay Garcia Service: Clinical Cardiology Author Type: Physician Type: Consults Filed: 12/11/2017 4:24 PM Note Text: [facility] CONS[facility] HISTORY AND PHYSICAL Luz Baca [id number] CONSULTING SERVICE: Clay Garcia, DO, FACC, FCCP, FACOI. PRIMARY SERVICE: Hospitalist HVI Consult Staff Note: Consultation requested by Dr. Montana for an opinion regarding SOB. My final [...] standpoint. She will follow-up with her primary marketing account executive Dr. Cardona upon discharge. Staff Signature: Clay Garcia, DO, FACC, FCCP, FACOI. Date of Service: 12/11/17 [...] She is followed by Dr. Cardona in [place] as her primary marketing account executive. She did have CABG ?2 with a [...] EF of 50%. This was done in [facility]. HISTORY History obtained from: Patient, Family and [...] No history of dysuria, frequency or incontinence RETURN TO FACTORY CLERK: Negative for abnormal vaginal bleeding, abnormal vaginal [...] report reviewed SIGNATURE: Clay Garcia DO PAGER: [phone] DATE of SERVICE: 12/11/2017 TIME of SERVICE: 1400 PT ED Observed: 12/11/2017 Status: COMPLETED Source: READING 2:25 PM CLINIC OTHER CAMPUS REPOSITORY O ID: [id number] Author: Akua Muller (Engineering Technician) Service: Pharmacy Author Type: Pharmacist Type: Patient [...] Failure SUPPLEMENTAL MATERIAL PROVIDED: [facility] SIGNATURE: AKUA MULLER, PLANT PATHOLOGIST RAPID PCR ASSAY FLU Collected: 12/11/2017 Status: F Source: READING 12:40 PM [facility] OTHER CAMPUS REPOSITORY TYPE CODE TESTS RESULT OUT OF REFERENCE UNITS RANGE LAB [facility] Nasopharyngeal Specimen Swab Source LAB PCRFLA Negative for Influenza A Influenza A by RT PCR PCR LAB PCRFLB Negative for Influenza B Influenza B by RT PCR PCR Performed By: #### FLUPCR #### [facility] [address] [facility] [phone] CONSULT Observed: 12/11/2017 Status: COMPLETED Source: READING 12:02 PM [facility] OTHER CAMPUS REPOSITORY HNO ID: [id number] Author: Malcolm Yo Service: Pulmonary Disease Author [...] so re- presented this time at the [place] ED a couple of days later. Mrs. [...] MD PROGRESS Observed: 12/11/2017 Status: COMPLETED Source: READING 10:14 AM CLINIC OTHER CAMPUS REPOSITORY HNO ID: [id number] Author: Gloria Montana Service: Hospital Medicine Author Type: Physician Type: [...] home meds ? Weakness/debility:PT/OT ? SIGNATURE: Gloria Montana MD PATIENT NAME: Luz Baca DATE: December 11, 2017 TIME: 10:14 AM PAGER: [phone] NURSING PROG Observed: 12/11/2017 Status: COMPLETED Source: READING 10:01 AM CLINIC OTHER CAMPUS REPOSITORY HNO ID: [id number] Author: Leighann (Rn) ALLYSON Malhotra Service: (none) Author Type: Registered Nurse Type: Nursing Progress Note Filed: 12/11/2017 6:00 PM Note Text: Nursing Progress Note Patient Name: Luz Baca Patient Location: [place] [id number] Daily Note: 0800- Resting in bed. AANDOx3. [...] Vibramycin IVPB hung via pump. 1000- Dr. Montana rounds. 1045- Beside swallow screen completed, no [...] RN CBC Collected: 12/11/2017 Status: F Source: READING 5:35 AM [facility] OTHER CAMPUS REPOSITORY TYPE CODE TESTS RESULT [...] Performed By: #### CBC, CMP, MG1 #### [facility] [address] [place] [address] COMP METABOLIC PANEL Collected: 12/11/2017 Status: F Source: READING 5:35 AM [facility] OTHER [place] REPOSITORY TYPE CODE TESTS RESULT OUT OF REFERENCE UNITS RANGE LAB TP 6.3-8.0 g/dL Protein, Total 7.3 LAB ALB 3.9-4.9 g/dL Low Albumin 3.8 LAB CA 8.5-10.2 mg/dL Calcium, Total 9.8 LAB TBIL 0.2-1.3 mg/dL Bilirubin, Total 0.4 LAB ALKP 32-117 U/L Alkaline Phosphatase 105 LAB AST 13-35 U/L AST 18 LAB GLU 74-99 mg/dL Glucose High 197 Result Comment: The [place] Diabetes Association (ADA) provides guidance for cutoff [...] Standards of Medical Care in Diabetes 2016, [place] [employer]. Diabetes Care. 2016.39(Suppl 1). LAB [...] Performed By: #### CBC, CMP, MG1 #### [facility] [address] [place] [address] MAGNESIUM Collected: 12/11/2017 Status: F Source: READING 5:35 AM CLINIC OTHER CAMPUS REPOSITORY TYPE CODE TESTS RESULT OUT OF REFERENCE UNITS RANGE LAB MG 1.7-2.3 mg/dL Magnesium 2.0 Performed By: #### CBC, CMP, MG1 #### [facility] [address] [place] [address] TROPONIN T Collected: 12/10/2017 Status: F Source: READING 11:32 PM CLINIC OTHER CAMPUS REPOSITORY TYPE CODE TESTS RESULT OUT OF REFERENCE UNITS RANGE LAB TROPT 0.000-0.029 ng/mL High Troponin T 0.030 Result Comment: Urgent value previously called 12/10/2017 at [address]. Performed By: #### MARIN #### [facility] [address] [place] [phone] URINALYSIS Collected: 12/10/2017 Status: F Source: READING 10:05 PM [facility] REPOSITORY TYPE CODE TESTS RESULT OUT OF RANGE REFERENCE UNITS LAB UCOL Yellow Color Yellow LAB [facility] Clear Clarity Clear LAB UGLUC Negative mg/dL Glucose, Abnormal Urine 500 Alert LAB UBIL Negative Bilirubin, Urine Negative LAB UKET Negative Ketones, Urine Negative LAB USPG 1.001-1.029 Specific [place], Ur 1.010 LAB UHGB Negative Hemoglobin/Blood, Negative Ur LAB UPH 5.0-8.0 pH 5.5 LAB UPROT Negative mg/dL Protein, Urine Negative LAB UUROB 0.2-1.0 Urobilinogen 0.2 LAB UNITR Negative Nitrites Negative LAB ULKEST Negative Leukest Abnormal Trace Alert Performed By: #### UA, UAMIC #### [facility] [address] [place], [place] [id number] URINE MICROSCOPIC (FOR Collected: 12/10/2017 Status: F Source: READING LAB USE ONLY) 10:05 PM [facility] REPOSITORY TYPE CODE TESTS RESULT OUT OF REFERENCE UNITS RANGE LAB UWBC 0-5 /HPF WBC 0-5 LAB URBC 0-3 /HPF RBC 0-3 LAB UCAST 0 /LPF Cast SEE COMMENT Result Comment: 0 LAB UEPI /HPF Epithelial SEE Cells COMMENT Result Comment: 0-5 Squamous Epithelial Cells Performed By: #### UA, UAMIC #### [facility] [address] [place] [address] Observed: 12/10/2017 Status: F Source: READING URINE CULTURE 10:05 PM [facility] REPOSITORY Sp. Request/Comment: - Specimen received in preservative Culture Result - <10,000 CFU/ml Normal urogenital mitra Performed By: #### URCUL #### [place] [phone] [facility] [address] [address] NURSING PROG Observed: 12/10/2017 Status: COMPLETED Source: READING 8:10 PM [facility] REPOSITORY HNO ID: [id number] Author: Kylah (Rn) ALLYSON Olsen Service: Nursing Author Type: Registered Nurse Type: Nursing Progress Note Filed: 12/10/2017 11:44 PM Note Text: Nursing Progress Note Patient Name: Luz Baca Patient Location: [facility]0256/[id number] Daily Note:Hospitalist paged regarding blood sugar and [...] Olsen RN Observed: 12/10/2017 Status: F Source: [place] BLOOD CULTURE 6:59 PM CLINIC OTHER [place] REPOSITORY Culture Result - No growth 5 days Performed By: #### BLCUL #### [place] [address] [place] [address] TROPONIN T Collected: 12/10/2017 Status: F Source: READING 6:56 PM [facility] OTHER [place] REPOSITORY TYPE CODE TESTS RESULT OUT OF REFERENCE UNITS RANGE LAB TROPT 0.000-0.029 ng/mL High Troponin T 0.036 Result Comment: Urgent value previously called 12/10/2017 13:11 Performed By: #### MARIN #### [facility] [address] [place] [address] URIC ACID Collected: 12/10/2017 Status: F Source: READING 6:56 PM [facility] OTHER [place] REPOSITORY TYPE CODE TESTS RESULT OUT OF RANGE REFERENCE UNITS LAB URIC 2.5-6.6 mg/dL High Uric Acid 12.6 Performed By: #### URIC #### [facility] [address] [place] [address] #### MYCOPM #### [facility] [address] [place] [address] MYCOPLASMA IGM AB Collected: 12/10/2017 Status: F Source: READING 6:56 PM [facility] REPOSITORY TYPE CODE TESTS RESULT OUT OF [...] IFA titers. Performed By: #### URIC #### [address] [phone] #### MYCOPM #### [place] [phone] CK, TOTAL AND CKMB Collected: 12/10/2017 Status: F Source: READING 6:56 [facility] REPOSITORY TYPE CODE TESTS RESULT OUT OF RANGE REFERENCE UNITS LAB CK 42-196 U/L CK 86 Result Comment: Results may be falsely increased due to interference by hemolysis. Suggest reorder as clinically indicated. LAB MB <4.3 ng/mL 6.4 High MB LAB CKMBRI 0.0-4.0 % CK MB % not reported CK MB % with CK <100 U/L. Performed By: #### CKCKMB #### [phone] Observed: 12/10/2017 Status: F Source: [place] BLOOD CULTURE 6:56 PM [facility] REPOSITORY Sp. Request/Comment: - The blood culture bottles are underfilled. Adding volume lower or higher than the 8 to 10 mL per bottle, which is the manufacturers recommended volume, may adversely affect the re covery and/or detection of organisms. 11.9 CC Culture Result - No growth 5 days Performed By: #### BLCUL #### [place] [address] CT CHEST WO IVCON Observed: 12/10/2017 Status: F Source: READING 6:40 PM CLINIC OTHER CAMPUS REPOSITORY * * *Final Report* * * DATE OF EXAM: Dec 10 2017 6:40PM [facility] - CT CHEST WO IVCON / [...] may be due to remote hemothorax. Cardiomegaly Top Lift Cutter: PSCB Transcribe Date/Time: Dec 11 2017 8:29A Dictated by : ISABELA SOLIS MD This examination was interpreted and the report reviewed and electronically signed by: ISABELA SOLIS MD on Dec 11 2017 8:54AM EST [id number] [id number] STREP PNEUMO Collected: 12/10/2017 Status: F Source: [place] FOR WEST USE ONLY 6:20 PM CLINIC OTHER CAMPUS REPOSITORY TYPE CODE TESTS RESULT OUT OF REFERENCE UNITS RANGE LAB USTPW Negative Urine Negative Strep Pneumo FOR WEST USE ONLY Result Comment: Strep Pneumo vaccine may cause a false positive Strep Pneumo antigen result in the 48 hours following vaccine. Performed By: #### USTPW #### [facility] [address] [facility] [phone] LEGIONELLA URINE AG Collected: 12/10/2017 Status: F Source: READING 6:20 PM [facility] OTHER CAMPUS REPOSITORY TYPE CODE TESTS RESULT OUT OF REFERENCE UNITS RANGE LAB LEGUAG Negative Legionella Urine Negative Ag Performed By: #### LEGUAG #### [facility] [address] [facility] [phone] Observed: 12/10/2017 Status: F Source: READING MRSA/S AUREUS 6:20 PM [facility] OTHER [place] SCREEN REPOSITORY Sp. Request/Comment: - Eswab Culture Result - Negative for Staphylococcus aureus. Performed By: #### SANSAL #### [facility] [address] [place], [place] [address] HISTORY PHYSICAL Observed: 12/10/2017 Status: COMPLETED Source: READING 5:43 PM CLINIC OTHER CAMPUS REPOSITORY HNO ID: [id number] Author: Gloria Montana Service: Hospital Medicine Author Type: Physician Type: [...] progressively declining since then. Was seen at [place] ED and placed on Zpack, prednisone, and tamiflu on 12/06. Have gotten progressively worse since then. She is normally on 2.5 liters O2 but has required more in the past week. Patient was seen by her primary care doctor who wanted her further evaluated at [facility]. FUNCTIONAL STATUS: Limited most or all of the time (uses scooter, mobility device) PAST MEDICAL HISTORY Diagnosis Date - Arthritis - Atrial fibrillation (HCC) - CAD (coronary artery disease) stents x9, defibrillator, CABG. Seeing Dr. Cardona - Cardiac defibrillator in place - Cardiomegaly - Carotid artery disease (HCC) left - CKD (chronic kidney disease), stage IV ([facility]) - COPD (chronic obstructive pulmonary disease) ([facility]) Dr. Cruz - Depression - Diabetes ([facility]) - Diabetic neuropathy ([facility]) - GERD (gastroesophageal reflux disease) - Gout - HH (hiatus hernia) - HOCM (hypertrophic obstructive cardiomyopathy) ([facility]) - HTN (hypertension) - Hyperlipidemia - Morbid obesity with BMI of 40.0-44.9, adult ([facility]) - Pacemaker - Pneumonia h/o pneumonia/bronchitis - Renal insufficiency 2003 post op - Sleep apnea 2011 not on CPAP, unable to tolerate mask 02/2017 - SVT (supraventricular tachycardia) ([facility]) NSVT and questionable VT in 2003 post [...] age 89, HTN - Heart Failure Mother PA - Cancer Father age 71, lung cancer [...] meds Weakness/debility:PT/OT Code status :Full SIGNATURE: Gloria Montana MD PATIENT NAME: Luz Baca DATE: December 10, 2017 TIME: 5:43 PM PAGER/CONTACT #: ED NOTE Observed: 12/10/2017 Status: COMPLETED Source: READING 2:19 PM CLINIC OTHER CAMPUS REPOSITORY HNO ID: [id number] Author: Luba (Rn) ALLYSON Kauffman Service: Emergency Medicine Author Type: Registered Nurse Type: ED Notes Filed: 12/10/2017 2:19 PM Note Text: SBAR report called to Harleen VALADEZ on [address]. No further questions for this RN. Pt is stable for transport. CASE MGT INIT Observed: 12/10/2017 Status: COMPLETED Source: READING HERNÁN 2:10 PM CLINIC OTHER CAMPUS REPOSITORY HNO ID: [id number] Author: Zenobia OsheaRn) ALLYSON Soto Service: (none) Author Type: Registered Nurse Type: Care Mgt Initial Assessment Filed: 12/10/2017 2:20 PM Note Text: CARE MANAGEMENT: ASSESSMENT AND DISCHARGE PLAN SERVICE DATE: 12/10/2017 SERVICE TIME: 2:10 PM PRIMARY CARE PHYSICIAN: Jameson Kamara MD (confirmed) Prefers appts after 1100 ADMISSION STATUS: Emergency POTENTIAL DISCHARGE PLANS Home Skilled Nursing OT/PT To Be Determined Patient/Fingernail Technician Stated Goals: CM in to speak with patient and dtr Octavia at bedside, introduced self and role. Pt is a 77y/o, with h/o hypertrophic Cardiomyopathy, SVT, Afib, CAD, CABG (pacer/defibrillator), COPD (on 2.5 home O2), HTN, and sleep apnea , presents s/p PCP appointment for evaluation and admission for COPD exacerbation. Pt is AANDOx3-4, resides with dtr Octavia in a 1SH with 2STE. PSYCHOLOGICAL OPERATIONS pt was an assist with ADL's, dtr [...] Information Primary Emergency Contact: Octavia Soliman Address: [address] [place] [address] [place] [id number] Relation: Daughter Supportive: Yes Other Important Patient [...] No Has the Patient Been in a Senior Living Facility in the Past 30 days? No FREEDOM OF CHOICE EXPLAINED: Yes HHC/SNF HANDOFF COMMUNICATION: Summary of Care to be sent to PCP SIGNATURE: Zenobia Soto RN PATIENT NAME: Luz Baca DATE: December 10, 2017 TIME: 2:10 PM PAGER/CONTACT #: [phone] ED NOTE Observed: 12/10/2017 Status: COMPLETED Source: READING 2:01 PM CLINIC OTHER CAMPUS REPOSITORY HNO ID: [id number] Author: Luba OsheaRn) ALLYSON Kauffman Service: Emergency Medicine Author Type: Registered Nurse Type: ED Notes Filed: 12/10/2017 2:01 PM Note Text: Heads up called to [address] [place] charge nurse ED NOTE Observed: 12/10/2017 Status: COMPLETED Source: READING 1:36 PM [facility] OTHER CAMPUS REPOSITORY HNO ID: [id number] Author: Luba Briseno) ALLYSON Kauffman Service: Emergency Medicine Author Type: Registered Nurse Type: ED Notes Filed: 12/10/2017 1:36 PM Note Text: Care of patient assumed at this time PLAN OF CARE Observed: 12/10/2017 Status: COMPLETED Source: READING 1:06 PM [facility] REPOSITORY HNO ID: [id number] Author: Dannie Murray (Engineering Technician) Service: Pharmacy Author Type: Pharmacist Type: Plan [...] Pentazocine - Pioglitazone Unknown - Propoxyphene Current PSYCHOLOGICAL OPERATIONS Medications: Prior to Admission medications as of [...] mouth twice daily. 12/09/2017 Yes DANNIE MURRAY, PLANT PATHOLOGIST December 10, 2017 1:06 PM CBC AND DIFFERENTIAL Collected: 12/10/2017 Status: F Source: READING 12:20 PM CLINIC OTHER CAMPUS REPOSITORY TYPE CODE [...] Low Abs Lymph 0.74 LAB AMONO % [place]% 8.0 LAB AAMONO <0.87 k/uL Abs [place] 0.81 LAB AEOS % Eosin% 0.4 LAB AAEOS <0.46 k/uL Abs Eosin 0.04 LAB ABASO % Baso% 0.2 LAB AABASO <0.11 k/uL Abs Baso <0.03 Performed By: #### CBCDIF, CMP #### [facility] [address] [place] [address] COMP METABOLIC PANEL Collected: 12/10/2017 Status: F Source: READING 12:20 PM [facility] OTHER [place] REPOSITORY TYPE CODE TESTS RESULT OUT OF REFERENCE UNITS RANGE LAB TP 6.3-8.0 g/dL Protein, Total 7.5 LAB ALB 3.9-4.9 g/dL Low Albumin 3.8 LAB CA 8.5-10.2 mg/dL Calcium, Total 9.3 LAB TBIL 0.2-1.3 mg/dL Bilirubin, Total 0.4 LAB ALKP 32-117 U/L Alkaline Phosphatase 111 LAB AST 13-35 U/L AST 20 LAB GLU 74-99 mg/dL Glucose High 383 Result Comment: The [place] Diabetes [employer] (ADA) provides guidance for cutoff [...] Standards of Medical Care in Diabetes 2016, [place] [employer]. Diabetes Care. 2016.39(Suppl 1). LAB [...] GFR. Performed By: #### CBCDIF, CMP #### [facility] [address] [place] [phone] NT PRO BNP Collected: 12/10/2017 Status: F Source: READING 12:20 PM [facility] REPOSITORY TYPE CODE TESTS RESULT OUT OF REFERENCE UNITS RANGE LAB PBNP <450 pg/mL High PRO B Natr 4154 Peptide Performed By: #### NTBNP, CKCKMB #### [facility] [address] [facility] [phone] CK, TOTAL AND CKMB Collected: 12/10/2017 Status: F Source: READING 12:20 PM [facility] OTHER [place] REPOSITORY TYPE CODE TESTS RESULT OUT OF REFERENCE UNITS RANGE LAB CK 42-196 U/L 58 CK LAB MB <4.3 ng/mL High MB 6.0 LAB CKMBRI 0.0-4.0 % CK CK MB MB % not % reported with CK <100 U/L. Performed By: #### NTBNP, CKCKMB #### [facility] [address] [place] [phone] TROPONIN T Collected: 12/10/2017 Status: F Source: READING 12:20 PM [facility] REPOSITORY TYPE CODE TESTS RESULT OUT OF REFERENCE UNITS RANGE LAB TROPT 0.000-0.029 ng/mL High Troponin T 0.038 Result Comment: Called to and read back by: Sunil Felton [facility] 12/10/2017 Anupam Presley Performed By: #### MARIN #### [facility] [address] [place] [address] ED NOTE Observed: 12/10/2017 Status: COMPLETED Source: READING 12:12 PM [facility] REPOSITORY HNO ID: [id number] Author: Elsy OsheaRn) ALLYSON Felton Service: (none) [...] PROV NOTE Observed: 12/10/2017 Status: COMPLETED Source: READING 11:56 AM [facility] OTHER [place] REPOSITORY HNO ID: [id number] Author: Cheri Andrew MD Service: (none) Author [...] for one month. She was seen at [place] ED and placed on Zpack, prednisone, and tamiflu on 12/06. She has gotten progressively worse since then. She is normally on 2.5 liters O2 but has required more in the past week. Patient was seen by her primary care doctor who wanted her further evaluated at [facility]. History provided by: Patient PAST MEDICAL HISTORY Diagnosis Date - Arthritis - Atrial fibrillation (HCC) - CAD (coronary artery disease) stents x9, defibrillator, CABG. Seeing Dr. Cardona - Cardiac defibrillator in place - Cardiomegaly - Carotid artery disease (HCC) left - CKD (chronic kidney disease), stage IV ([facility]) - COPD (chronic obstructive pulmonary disease) ([facility]) Dr. Cruz - Depression - Diabetes ([facility]) - Diabetic neuropathy (HCC) - GERD (gastroesophageal reflux disease) - Gout - HH (hiatus hernia) - HOCM (hypertrophic obstructive cardiomyopathy) ([facility]) - HTN (hypertension) - Hyperlipidemia - Morbid obesity with BMI of 40.0-44.9, adult ([facility]) - Pacemaker - Pneumonia h/o pneumonia/bronchitis - Renal insufficiency 2003 post op - Sleep apnea 2011 not on CPAP, unable to tolerate mask 02/2017 - SVT (supraventricular tachycardia) ([facility]) NSVT and questionable VT in 2003 post [...] age 89, HTN - Heart Failure Mother PA - Cancer Father age 71, lung cancer [...] Concern for CHF by primary. Sent to [facility] for admission. Clinically, she has diffuse wheezing with ronchi concerning for pneumonia but could also have superimposed CHF. CXR shows questionable atelectasis vs infiltrate left lower lung with effusion, BNP 4154, WBC 10.08, BUN/Cr 58/2.52, glucose 383, EKG paced ventricular rhythm with CPK 58, trop 0.038, patient currently takes elitr. D/w Dr. Harrison regarding admission and treatment. [...] 2V FRONTAL/LAT Observed: 12/10/2017 Status: F Source: READ[place] 11:49 AM CLINIC OTHER CAMPUS REPOSITORY * [...] left basilar atelectasis and/or consolidation. Stable cardiomegaly. Top Lift Cutter: SALINAS Transcribe Date/Time: Dec 10 2017 11:53A Dictated by : SPEEDY CAM MD This examination was interpreted and the report reviewed and electronically signed by: SPEEDY CAM MD on Dec 10 2017 11:56AM EST [id number] ED NOTE Observed: 12/10/2017 Status: COMPLETED Source: [place] 11:40 AM [facility] OTHER CAMPUS REPOSITORY HNO ID: [id number] Author: Luba OsheaRn) ALLYSON Kauffman Service: Emergency [...] breath. PROGRESS Observed: 12/10/2017 Status: COMPLETED Source: [place] 9:39 AM [facility] [place] REPOSITORY HNO ID: [id number] Author: Remi Briseno) Brent Service: (none) Author Type: Registered Nurse Type: Progress Notes Filed: 12/10/2017 10:29 AM Note Text: PRIMARY CARE COORDINATION IN OFFICE VISIT WITH PCP Patient has been identified by name and date of . PCP Assessment/Plan: Reviewed PCP plan with patient using Teach Back Pt to go to [facility] POLYSOMNOGRAPHIC TECHNICIAN called report to ED PCC Plan of [...] 2017 PROGRESS Observed: 12/10/2017 Status: COMPLETED Source: [place] 8:48 AM [facility] [place] REPOSITORY HNO ID: [id number] Author: Adriel Pringle Service: (none) Author Type: Nurse Practitioner Type: Progress Notes Filed: 12/10/2017 9:57 AM Note Text: 12/10/2017 Patient presents with: ER F/U: COPD exacerbation SUBJECTIVE: This is a 77 year old that is here today with daughter for follow up. She states that she has not felt well since beginning of October. She has been seen by PCP (Dr. Kamara), marketing account executive (Dr. Cardona), deliverer merchandise (Dr. Daniel), and equipment installer (Dr. Martin) within the last month. Dr. Cardona had increased lasix to 60 mg daily- she states that she is urinating more, but continues to have leg swelling and has not noticed a change. She was seen by nephrology on 11/29 and treated for UTI with Levaquin, stopped spironolactone and amlodipine. She went to [facility] ED 12/06 for increased cough. CXR [...] (HCC) - COPD (chronic obstructive pulmonary disease) ([facility]) Dr. Cruz - Depression - Diabetes ([facility]) - Diabetic neuropathy ([facility]) - GERD (gastroesophageal reflux disease) - Gout - HH (hiatus hernia) - HOCM (hypertrophic obstructive cardiomyopathy) ([facility]) - HTN (hypertension) - Hyperlipidemia - Morbid obesity with BMI of 40.0-44.9, adult ([facility]) - Pacemaker - Pneumonia h/o pneumonia/bronchitis - Renal insufficiency 2003 post op - Sleep apnea 2011 not on CPAP, unable to tolerate mask 02/2017 - SVT (supraventricular tachycardia) ([facility]) NSVT and questionable VT in 2003 post [...] office - likely CHF, report called to [place] [facility] 4. Chronic obstructive pulmonary disease, unspecified COPD type (HCC) - ICD9: 496, ICD10: J44.9 - following with Dr. Cruz 5. Fever, unspecified fever cause - ICD9: 780.60, ICD10: R50.9 - unknown etiology - will await possible further work up at [facility] Adriel Pringle, ELÍAS CNPTOUTREACH Observed: 12/10/2017 Status: COMPLETED Source: READ[place] 12:00 AM [facility] REPOSITORY Patient Outreach (FAMPWS) LUZ BACA ([id number]) 1940 F Date Time Provider Department 12/10/17 REMI KENNEDY (RN) NAVINPWS During your visit today, we recorded the following information about you: Remi Kennedy RN 12/10/2017 10:29 AM Addendum PRIMARY CARE COORDINATION IN OFFICE VISIT WITH PCP Patient has been identified by name and date of . PCP Assessment/Plan: Reviewed PCP plan with patient using Teach Back [facility]CHNICIAN called report to ED PCC Plan of [...] Ma - Fully Assessed Reason for Visit: Assembler Small Products-In Office Visit [4194] Prescriptions as of 12/10/2017 [...] 12/09/2017 Status: COMPLETED Source: ELZA 12:00 AM [facility] REPOSITORY Telephone ([facility]) LUZ BACA Salvador ([id number]) 1940 F Date Time Provider Department 12/09/17 YANIRA (PHARMACIST)LI During your visit today, we recorded the following information about you: LI DOYLE PHARMACIST 12/10/2017 9:23 AM Addendum Patient's daughter calling to report BGs. Also reports patient was in ER for COPD exacerbation at [facility]. Toujeo 40 or 60 units not [...] f/u in one week. Li Doyle, PharmD, BCPS Allergies As of Date: 12/09/2017 Noted Allergy [...] disease, with long-term current use of insulin ([facility]) [E08.65, E08.22, N18.3, Z79.4] Order(s):insulin aspart U-100 [...] 12/08/2017 Status: F Source: [place]AL[place] 1:36 PM [facility] Cardiovascular Services [address] [place] [address] 12 Lead EKG 12/06/172006 MR#: [id number] Acct: [id number] Name: LUZ RUSH Rep #: [id number] : 1940 77 From: Ayde Butt MD [...] ECG Confirmed by KEARA COLLIER, AYDE ([id number]), publication editor JASON ALDANA ([id number]) on 12/08/2017 1:35:48 PM Referred By: UG Confirmed By:AYDE BUTT MD 12/08/17 1335 Date Ayde Butt MD CC: Mook Kamara MD; Mandy Grajeda MD Signed EMERGENCY DEPARTMENT Observed: 12/07/2017 Status: F Source: WALI SUMMARY 1:45 AM [facility] Medical Records Department [address] [place] [address] Emergency Department Summary 12/06/17 2331 MR#: [id number] Acct: [id number] Name: LUZ RUSH Rep #: [id number] : 1940 77 From: Mandy Grajeda MD [...] 2. Influenza This note was generated with Buyosphereation software. It may contain incorrect words, spelling, [...] your Primary Care Provider. Call [facility] ([phone]) or report to the closest Emergency Room. Call 911 if necessary. 12/07/17 0145 <Electronically signed by Mandy Grajeda MD> Date Mandy Grajeda MD Cosigner Signature (If Indicated): Date CC: Mook Kamara MD Observed: 12/06/2017 Status: F Source: [place] INFLUENZA A+B (RAPID 11:35 PM [facility] SHERYL) REPOSITORY FLU A/B Rapid Negative test results should be confirmed by culture. Order Rapid Viral Culture for Influenzae A+B ([id number]) if clinically indicated. Influenza Ag, Direct Presumptive NEGATIVE for Influenza A/B Antigen (See Note) Performed By: #### M101.0101 #### [facility] [address] [facility] [place], [address] DISCHARGE INSTRUCTION Observed: 12/06/2017 Status: F Source: [place] 11:34 PM [facility] REPOSITORY [facility] Medical Records Department [address] [place] [address] Discharge Instruction 12/06/17 2332 MR#: [id number] Acct: [id number] Name: ANNEMARIE TRENTLUZ G Rep #: [id number] : 1940 77 From: Mandy Grajeda MD [...] your Primary Care Provider. Call [facility] ([phone]) or report to the closest Emergency Room. Call 911 if necessary. 12/06/17 2338 <Electronically signed by Mandy Grajeda MD> Date Mandy Grajeda MD Cosigner Signature (If Indicated): Date CC: Mook Kamara MD Observed: 12/06/2017 Status: F Source: [place] CULTURE, BLOOD (WB) 11:05 PM [facility] REPOSITORY BC No growth in 5 days. Performed By: #### M200.1000 #### [facility] [place], [address] CBC W/DIFF, AUTOMATED Collected: 12/06/2017 Status: F Source: [place] 10:35 PM [facility] REPOSITORY TYPE CODE TESTS RESULT OUT OF [...] Lymph 2.43 Performed By: #### L100.0100 #### [facility] [address] [place], [address] BASIC METABOLIC Collected: 12/06/2017 Status: F Source: [place] PROFILE ([facility]) 10:35 PM [facility] REPOSITORY TYPE CODE TESTS RESULT OUT OF [...] GAP 5 Performed By: #### L500.2500 #### [facility] [address] [place] [place], [address] Observed: 12/06/2017 Status: F Source: [place] CULTURE, BLOOD (WB) 10:35 PM [facility] REPOSITORY BC No growth in 5 days. Performed By: #### M200.1000 #### [facility] [address] [facility] [place], [address] CHEST PA AND LATERAL Observed: 12/06/2017 Status: F Source: [place] 10:02 PM [facility] REPOSITORY [facility] Imaging Services [address] [facility] [place] [address] Chest PA and Lateral MR#: [id number] Acct: [id number] Name: LUZ RUSH Rep #: [id number] : 1940 F 77 From: Vu Saha MD PCP: Mook Kamara MD Status: REG ER Study: Chest PA and Lateral Date of Exam: 12/06/17 Exam# [id number] Ordering Dr: Mandy Grajeda MD STUDY: X-RAY [...] CC: Mook Kamara MD; Mandy Grajeda MD Top Lift Cutter: Signed PROGRESS Observed: 12/02/2017 Status: COMPLETED Source: [place] 12:30 PM [facility] [place] REPOSITORY HNO ID: [id number] Author: Li Doyle (Pharmacist) Service: (none) Author Type: Pharmacist Type: Progress Notes Filed: 12/02/2017 4:17 PM Note Text: Patient consents to pharmacy collaborative practice agreement. REASON FOR CONSULT: DM GOALS: A1c < 8% CONSULTING PROVIDER: Dr. Kamara Date of Consult: 10/2017 Luz Baca is a 77 year old female was last seen in [facility] by PCP, Dr. Jameson Kamara MD [...] ACTIVE PROBLEM LIST Hocm (Hypertrophic Obstructive Cardiomyopathy) ([facility]) Svt (Supraventricular Tachycardia) ([facility]) Carotid Artery Disease (Hcc) Cad (Coronary Artery Disease) Htn (Hypertension) Hyperlipidemia Copd (Chronic Obstructive Pulmonary Disease) (Hcc) Sleep Apnea Hh (Hiatus Hernia) Gerd (Gastroesophageal [...] Ckd (Chronic Kidney Disease), Stage IV (Hcc) PAST MEDICAL HISTORY Diagnosis Date - Arthritis - Atrial fibrillation (HCC) - CAD (coronary artery disease) stents x9, defibrillator, CABG. Seeing Dr. Cardona - Cardiac defibrillator in place - Cardiomegaly - Carotid artery disease (HCC) left - CKD (chronic kidney disease), stage IV (HCC) - COPD (chronic obstructive pulmonary disease) ([facility]) Dr. Cruz - Depression - Diabetes ([facility]) - Diabetic neuropathy ([facility]) - GERD (gastroesophageal reflux disease) - Gout - HH (hiatus hernia) - HOCM (hypertrophic obstructive cardiomyopathy) ([facility]) - HTN (hypertension) - Hyperlipidemia - Morbid obesity with BMI of 40.0-44.9, adult ([facility]) - Pacemaker - Pneumonia h/o pneumonia/bronchitis - Renal insufficiency 2003 post op - Sleep apnea 2011 not on CPAP, unable to tolerate mask 02/2017 - SVT (supraventricular tachycardia) ([facility]) NSVT and questionable VT in 2003 post [...] verbalized understanding of instructions. Li Doyle PharmD, [facility] CNPN Observed: 12/02/2017 Status: COMPLETED Source: READING 12:00 AM [facility] REPOSITORY Telephone (PHME[facility]) LUZ BACA ([id number]) 1940 F Date Time Provider Department 12/02/17 YANIRA (PHARMACIST), LI HICKEY During your visit today, we recorded the following information about you: HEBERT VINSON 12/02/2017 4:[address] Cardona, PharmD at [facility] saw patient today for DM management. [...] require any further information. Li Doyle, PharmD, [facility] [phone] Aren Cardona MD 12/02/2017 4:56 PM Signed [...] 12/02/17 [place] Observed: 11/17/2017 Status: COMPLETED Source: [place] 2:30 PM [facility] [place] REPOSITORY Office Visit (AGCARDWST) LUZ BACA ([id number]) 1940 F Date Time Provider Department 11/17/17 2:30 PM AREN CARDONAWSSera During your visit today, we recorded the [...] restart Beta lenny for ASHD with prior PA or prior LVEFANDlt;40 (NQF 0070) - COPD Beta lenny for HF with prior LVEFANDlt;40 (NQ 0083) - COPD DAMION-I or ARB for ASHD with DM or prior LVEFANDlt;40 (NQ 0066) - CRF Statin therapy for ASHD or FHL or DM - met BMI documented and plan if ANDgt;25 ([facility] 0421) - lifestyle recommendation form Tobacco use screening and referral ([facility] 0028) - lifestyle recommendation form Recommendation for [...] She may benefit from an upgrade to VICE PRESIDENT PROCESS-D. Her LV function by echo is in [...] treatment plan. This note was generated using [employer] voice recognition system, and there may be [...] - CKD (chronic kidney disease), stage IV ([facility]) - COPD (chronic obstructive pulmonary disease) ([facility]) Dr. Cruz - Depression - Diabetes ([facility]) - Diabetic neuropathy ([facility]) - GERD (gastroesophageal reflux disease) - Gout - HH (hiatus hernia) - HOCM (hypertrophic obstructive cardiomyopathy) ([facility]) - HTN (hypertension) - Hyperlipidemia - Morbid obesity with BMI of 40.0-44.9, adult ([facility]) - Pacemaker - Pneumonia h/o pneumonia/bronchitis - Renal insufficiency 2003 post op - Sleep apnea 2011 not on CPAP, unable to tolerate mask 02/2017 - SVT (supraventricular tachycardia) ([facility]) NSVT and questionable VT in 2003 post [...] age 89, HTN - Heart Failure Mother PA - Cancer Father age 71, lung cancer [...] the following areas and commit to making [place] [facility] changes. EAT A WHOLE FOOD, PLANT BASED [...] in your area. Referring Provider: AREN CARDONA [[id number]] Allergies As of Date: 11/17/2017 Noted Allergy [...] branch block) [I44.7] Order(s):furosemide (LASIX) 40 mg aquvhs71 mg in the AM and 40 mg after lunchDisp: Rfl: spironolactone (ALDACTONE) 25 mg tabletTake 1 tablet by mouth twice daily.Disp: Rfl: aspirin, enteric coated (ADULT LOW DOSE ASPIRIN) 81 mg EC tabletTake 1 tablet by mouth once daily.Disp: Rfl: BASIC METABOLIC PNL [SQBMP] Order #: [id number] FUTURE Prescriptions as of 11/17/2017 Sig: FUROSEMIDE [...] the following areas and commit to making 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 teacher changes. EAT A WHOLE FOOD, PLANT BASED [...] 11/17/17 PROGRESS Observed: 11/17/2017 Status: COMPLETED Source: [place] 1:16 PM CLINIC OTHER CAMPUS REPOSITORY HNO ID: [id number] Author: Aren Cardona Service: (none) Author Type: [...] restart Beta lenny for ASHD with prior PA or prior LVEF<40 (NQF 0070) - COPD [...] She may benefit from an upgrade to VICE PRESIDENT PROCESS-D. Her LV function by echo is in [...] treatment plan. This note was generated using [employer] voice recognition system, and there may be [...] - CKD (chronic kidney disease), stage IV ([facility]) - COPD (chronic obstructive pulmonary disease) ([facility]) Dr. Cruz - Depression - Diabetes ([facility]) - Diabetic neuropathy ([facility]) - GERD (gastroesophageal reflux disease) - Gout - HH (hiatus hernia) - HOCM (hypertrophic obstructive cardiomyopathy) ([facility]) - HTN (hypertension) - Hyperlipidemia - Morbid obesity with BMI of 40.0-44.9, adult ([facility]) - Pacemaker - Pneumonia h/o pneumonia/bronchitis - Renal insufficiency 2003 post op - Sleep apnea 2011 not on CPAP, unable to tolerate mask 02/2017 - SVT (supraventricular tachycardia) ([facility]) NSVT and questionable VT in 2003 post [...] age 89, HTN - Heart Failure Mother PA - Cancer Father age 71, lung cancer [...] MD PROGRESS Observed: 11/17/2017 Status: COMPLETED Source: [place] 11:50 AM [facility] REPOSITORY HNO ID: [id number] Author: Jose C Rodriguez Service: (none) Author [...] place - Cardiomegaly - Carotid artery disease ([facility]) left - CKD (chronic kidney disease), stage IV ([facility]) - COPD (chronic obstructive pulmonary disease) ([facility]) Dr. Cruz - Depression - Diabetes ([facility]) - Diabetic neuropathy ([facility]) - GERD (gastroesophageal reflux disease) - Gout - HH (hiatus hernia) - HOCM (hypertrophic obstructive cardiomyopathy) ([facility]) - HTN (hypertension) - Hyperlipidemia - Morbid obesity with BMI of 40.0-44.9, adult ([facility]) - Pacemaker - Pneumonia h/o pneumonia/bronchitis - Renal insufficiency 2003 post op - Sleep apnea 2011 not on CPAP, unable to tolerate mask 02/2017 - SVT (supraventricular tachycardia) ([facility]) NSVT and questionable VT in 2003 post [...] DPM CNOV Observed: 11/17/2017 Status: COMPLETED Source: [place] 11:10 AM [facility] REPOSITORY Office Visit (PODIWS) LUZ BACA ([id number]) 1940 F Date Time Provider Department 11/17/17 [...] - CKD (chronic kidney disease), stage IV ([facility]) - COPD (chronic obstructive pulmonary disease) ([facility]) Dr. Cruz - Depression - Diabetes ([facility]) - Diabetic neuropathy ([facility]) - GERD (gastroesophageal reflux disease) - Gout - HH (hiatus hernia) - HOCM (hypertrophic obstructive cardiomyopathy) ([facility]) - HTN (hypertension) - Hyperlipidemia - Morbid obesity with BMI of 40.0-44.9, adult ([facility]) - Pacemaker - Pneumonia h/o pneumonia/bronchitis - Renal insufficiency 2003 post op - Sleep apnea 2011 not on CPAP, unable to tolerate mask 02/2017 - SVT (supraventricular tachycardia) ([facility]) NSVT and questionable VT in 2003 post [...] pain. ASSESSMENT: (I73.9) PAD (peripheral artery disease) ([facility]) (primary encounter diagnosis) (M10.9) Acute gout of [...] Rodriguez DPM Referring Provider: JOSE C RODRIGUEZ [[id number]] Allergies As of Date: 11/17/2017 Noted Allergy [...] Mc[place] - Fully Assessed Reason for Visit: Recheck [92] Cmt: 2 wk f/u gout Primary Visit Diagnosis:PAD (peripheral artery disease) ([facility]) [I73.9] Other Visit Diagnoses:Acute gout of right [...] REACTION SEVERITY SOURCE Drug Penicillins/F0010 Hives Unknown [place] 9 Allergy/283691873( 83799(RXNORM) [facility] Hospital Repository Drug Tetracyclines/F00 Hives Unknown [place] 9 Allergy/786576293( 0731235(RXNORM) [facility] Hospital Repository Drug codeine/[id number] Unknown Unknown [place] 9 Allergy/018263461( 0([facility] propoxyphene/F006 Unknown Unknown [place] 9 Allergy/891954926( 366697(RXNORM) [facility] Repository Drug pentazocine/F0060 Unknown Unknown [place] 9 Allergy/594279034( 44775(RXNORM) [facility] Drug aspirin/N55705092 Unknown Unknown [place] 9 Allergy/551852243( 7(RXNORM) [facility] Repository Drug sulfamethoxazole/ Unknown Unknown [place] 9 Allergy/314693713( B791788077(RXNORM [facility]) ) Hospital Repository Drug trimethoprim/F006 Unknown Unknown [place] 9 Allergy/713018370( 228695(RXNORM) [facility] Hospital Repository Drug meperidine/N63645 Hives Unknown [place] 9 Allergy/971355639( 4620(RXNORM) [facility] Hospital Repository Drug hydromorphone/F00 Unknown Unknown [place] 9 Allergy/135997458( 2196029(RXNORM) [facility] Hospital Repository Drug atorvastatin/F006 Unknown Unknown [place] 9 Allergy/274984836( 528528(RXNORM) [facility]) Hospital Repository Drug pioglitazone/F006 Unknown Unknown [place] 9 Allergy/650069454( 015855(RXNORM) [facility]) Hospital Repository Drug latex/Q809513347( Anaphylaxis Unknown [place] 9 Allergy/837495561( RXNORM) [facility]) Hospital Repository Miscellaneous chloroprep Unknown Unknown [place] 9 Allergy/489654333( [facility]) Hospital Repository DRUG ASPIRIN ANAPHYLAXIS [facility] 8 INGREDI/285224566( Clinic Other SNOMED CT) [place] Repository DRUG/541620801(SNO SULFAMETHOXAZOLE- OTHER: SEE C [facility] [address]) TRIMETHOPRIM Clinic Other [place] Repository DRUG LATEX RASH [facility] 7 INGREDI/088729286( Clinic Other SNOMED CT) [place] Repository DRUG ATORVASTATIN UNKNOWN [place] 7 INGREDI/284356458( Clinic Other SNOMED CT) [place] Repository DRUG/759236917(SNO SULFAMETHOXAZOLE- UNKNOWN [place] [address]) TRIMETHOPRIM Clinic Other [place] Repository DRUG CODEINE UNKNOWN [place] 7 INGREDI/931943513( Clinic Other SNOMED CT) [place] Repository DRUG/767189720(SNO HYDROMORPHONE UNKNOWN [place] [address]) (BULK) Clinic Other [place] Repository DRUG PIOGLITAZONE UNKNOWN [place] 7 INGREDI/992142956( Clinic Other SNOMED CT) [place] Repository DRUG TETRACYCLINE GI UPSET [facility] [place] 0 INGREDI/907480583( Clinic Other SNOMED CT) [place] Repository Drug PENICILLINS RASH [facility] [place] 4 Class/115153878(SN Clinic Other OMED CT) [place] Repository DRUG MEPERIDINE [place] 4 INGREDI/065446911( Clinic Other SNOMED CT) [place] Repository DRUG PENTAZOCINE [place] 4 INGREDI/372091977( Clinic Other SNOMED CT) [place] Repository DRUG PROPOXYPHENE [place] 4 INGREDI/857780961( Clinic Other SNOMED CT) [place] Repository NG/522445684(SNOME ASPIRIN [facility] System Repository NG/103527866(SNOME LATEX [facility]) [facility] System Repository NG/760739295(SNOME PENICILLINS [facility]) [facility] System Repository NG/141940721(SN[facility] TETRACYCLINE [facility]) [facility] System Repository NG/647112871(SNOME ATORVASTATIN [facility]) [facility] System Repository NG/898057791(SNOME SULFAMETHOXAZOLE- [facility]) TRIMETHOPRIM Health System Repository NG/896666425(SNOME CODEINE [facility]) [facility] System Repository NG/943872550(SNOME HYDROMORPHONE [facility]) (BULK) Health System Repository NG/602892762(SNOME MEPERIDINE [facility]) [facility] Repository NG/048896356(SNOME PENTAZOCINE [facility]) [facility] System Repository NG/936450790(SNOME PIOGLITAZONE [facility]) [facility] System Repository NG/064953608(SNOME PROPOXYPHENE [facility]) Health System Repository ENCOUNTERS ENCOUNTERS ADMIT/DISCHARGE ACCOUNT NUMBER ADMITTING ENCOUNTER LOCATION SOURCE CLASS 11/12/2018/01/26/20 [id number] Emergency [address] ding:ED Repository 11/12/2018 [id number] Ambulatory [facility] ding:[place] Repository B 11/05/2018 [id number] Inpatient [address] [place] [address] Encounter 4WRoom: System [id number]: Repository [id number] 11/04/2018/11/04/19 [id number] Emergency [address] ding:ED Repository 11/03/2018 [id number] Ambulatory BMSBuilding: [facility] Repository 11/03/2018 [id number] Ambulatory [facility] ding:WC Repository 11/03/2018/11/04/19 [id number] Ambulatory [place] [address] [facility] [place] Repository 11/02/2018/11/02/19 [id number] Ambulatory [place] [facility] [place] Repository 10/13/2018/10/17/20 [id number] Ambulatory [place] [facility] [place] Repository 10/06/2018/10/06/20 [id number] Ambulatory [place] [facility] [place] Repository 10/06/2018/10/06/20 [id number] Ambulatory [place] [facility] [place] Repository 10/06/2018/10/07/20 [id number] Ambulatory [place] [facility] [place] Repository 09/27/2018/09/27/20 [id number] Ambulatory [place] [facility] [place] Repository 09/27/2018/09/28/20 [id number] Ambulatory [place] [facility] [place] Repository 09/22/2018/09/23/20 [id number] MARGRET, Ambulatory [place] [facility] [place] Repository 09/20/2018/09/20/20 [id number] Ambulatory [place] [facility] [place] Repository 09/19/2018/09/20/20 [id number] Ambulatory [place] [facility] [place] Repository 09/17/2018/09/19/20 [id number] Ambulatory [place] [facility] [place] Repository 09/02/2018/09/02/20 [id number] Ambulatory [place] [facility] [place] Repository 09/02/2018/09/02/20 [id number] Ambulatory [facility] [address] MEDICAL Repository CENTERBuildi ng:AKEPD 08/25/2018/08/25/20 [id number] Ambulatory [place] [facility] [place] Repository 08/23/2018/08/26/20 [id number] Ambulatory [place] [facility] [place] Repository 08/18/2018 [id number] Ambulatory BMSBuilding: [facility] Repository 08/17/2018/08/18/20 [id number] González, Ambulatory [place] [address] Hospital ding:[id number] Repository : TS613Ovh: 1 08/11/2018/08/12/20 [id number] Ambulatory [place] [facility] [place] Repository 08/09/2018/08/09/20 [id number] Ambulatory [place] [facility] [place] Repository 08/05/2018/08/05/20 [id number] Ambulatory [place] [facility] [place] Repository 08/04/2018/08/04/20 [id number] Ambulatory [place] [facility] [place] Repository 08/04/2018/08/05/20 [id number] Ambulatory [place] [facility] [place] Repository 08/02/2018 [id number] MARGRET, Ambulatory [place] [facility] Other [place] Repository 07/28/2018/07/28/20 [id number] Ambulatory [place] [facility] [place] Repository 07/26/2018/07/26/20 [id number] Ambulatory [place] [facility] [place] Repository 07/26/2018/07/26/20 [id number] Ambulatory [place] [facility] Main [place] 07/21/2018/07/22/20 [id number] Ambulatory [facility] [place] Rep[place] 07/20/2018/07/20/20 [id number] Ambulatory [facility] [place] Rep[place] 07/12/2018/07/12/20 [id number] MARGRET Ambulatory [place] [address] MICHEAL D [facility] Other [place] Repository 07/07/2018 [id number] Ambulatory [facility] Other [place] Repository 07/05/2018/07/06/20 [id number] Ambulatory [place] [facility] [place] Rep[place] 06/30/2018/06/30/20 [id number] Ambulatory [facility] [place] Rep[place] 06/30/2018/06/30/20 [id number] Ambulatory [facility] [place] Rep[place] 06/28/2018/06/28/20 [id number] Ambulatory [facility] [place] Repository 06/24/2018/06/29/20 [id number] Ambulatory [facility] [place] Rep[place] 06/23/2018/06/23/20 [id number] Ambulatory [facility] [place] Rep[place] 06/23/2018/06/24/20 [id number] Ambulatory [facility] [place] Rep[place] 06/17/2018 [id number] Ambulatory BMSBuilding: [place] BMS.[facility] Repository 06/16/2018/06/16/20 [id number] Ambulatory [facility] [place] Rep[place] 06/16/2018/06/17/20 [id number] Ambulatory [facility] [place] Rep[place] 06/16/2018/06/16/20 [id number] Ambulatory [facility] [place] Rep[place] 06/14/2018/06/15/20 [id number] Ambulatory [facility] [place] Rep[place] 06/07/2018/06/08/20 [id number] Ambulatory [facility] [place] Repository 06/06/2018/06/15/20 [id number] Ambulatory [facility] [place] Repository 06/02/2018/06/28/20 [id number] Ambulatory [facility] 18 [facility] Other [place] Repository 06/02/2018/06/28/20 [id number] Ambulatory [address] MEDICAL Repository CENTERBuildi ng:AKEPD 05/31/2018/06/02/20 [id number] Ambulatory [facility] [place] Rep[place] 05/25/2018/05/25/20 [id number] Ambulatory [facility] [place] Rep[place] 05/24/2018/05/24/20 [id number] Ambulatory [place] [facility] [place] Repository 05/24/2018 [id number] Ambulatory [facility] MEDICAL Repository CENTERBuildi ng:CAGWS 05/19/2018/05/19/20 [id number] Emergency [place] Wal[place] [address] [place] [address] ding:ED Repository 05/19/2018/05/19/20 [id number] Ambulatory [facility] [place] Repository 05/19/2018/05/20/20 [id number] Ambulatory [address] Repository 05/13/2018/05/13/20 [id number] Ambulatory BMSBuilding: [place] 18 [facility] Repository 05/11/2018/05/13/20 [id number] Garrison, Inpatient [place] ding:PCURoom Repository : [id number]: 1 05/11/2018 [id number] [place] Ambulatory BMSBuilding: [place] BMS.[facility] Repository 05/11/2018 [id number] [place] Ambulatory BMSBuilding: [place] BMS.CF.[facility] Repository 05/11/2018 [id number] [place] Ambulatory BMSBuilding: [place] BMS.[facility] Repository 05/11/2018 [id number] [place] Ambulatory BMSBuilding: [place] BMS.[facility] Repository 05/11/2018/05/13/20 [id number] Ambulatory BMSBuilding: [place] 18 [facility] Repository 05/10/2018/05/10/20 [id number] Ambulatory [address] [place] Rep[place] 05/04/2018/05/04/20 [id number] Ambulatory [address] Repository 05/03/2018/05/03/20 [id number] Ambulatory [address] Repository 05/03/2018/05/05/20 [id number] Ambulatory [address] Repository 04/28/2018/04/28/20 [id number] Ambulatory [address] Repository 04/28/2018/04/28/20 [id number] Ambulatory [address] Repository 04/28/2018/05/02/20 [id number] Ambulatory [address] Repository 04/22/2018/04/22/20 [id number] Ambulatory BMSBuilding: [place] [address] [place] [address] Repository 04/21/2018/04/22/20 [id number] Sementi, Ambulatory [place] ding:PCURoom Repository : [id number]: 1 04/21/2018 [id number] Sementi, Ambulatory BMSBuilding: [place] Kimberly BMS.[facility] Repository 04/21/2018/04/22/20 [id number] Ambulatory BMSBuilding: Wali[address] Repository 04/20/2018 [id number] Emergency [address] [place] [address] EDRoom: System [id number]: Repository [id number] 03/17/2018/03/21/20 [id number] Ambulatory [facility] Main [place] Repository 03/17/2018/03/17/20 [id number] Ambulatory [place] [address] [facility] [place] Repository 03/17/2018/03/17/20 [id number] Ambulatory [address] Main [place] Repository 03/17/2018/09/28/20 [id number] Ambulatory [address] Main [place] Repository 02/18/2018/02/19/20 [id number] Emergency [address] Other [place] Repository 01/27/2018/02/18/20 [id number] LUCRECIA, Inpatient [address] [facility] Other [place] Repository 01/26/2018 [id number] Ambulatory [facility] Main [place] Repository 01/26/2018/01/27/20 [id number] Ambulatory [address] [place] Repository 01/26/2018/01/28/20 [id number] Ambulatory [address] Main [place] Repository 01/25/2018 [id number] Ambulatory [facility] Other [place] Repository 01/25/2018 [id number] Ambulatory [facility] Other [place] Repository 01/25/2018 [id number] Ambulatory [facility] Other [place] Repository 01/25/2018 [id number] Ambulatory [facility] Other [place] Repository 01/20/2018/01/24/20 [id number] NUVIA, Inpatient [place] [address] RUSSELL Encounter [facility] Other [place] Repository 01/19/2018 [id number] Ambulatory [facility] Hospital ding:US Repository 01/18/2018/01/19/20 [id number] Ambulatory [address] Other [place] Repository 01/18/2018/01/19/20 [id number] Ambulatory MISIMEON [address] MEDICAL Repository CENTERBuildi ng:CAGWS 01/18/2018/01/20/20 [id number] Ambulatory [address] [place] Repository 01/07/2018/01/08/20 [id number] Ambulatory [facility] [place] Repository 01/07/2018/01/12/20 [id number] Ambulatory [facility] [place] Repository 01/06/2018/01/07/20 [id number] Ambulatory [facility] [place] Repository 01/06/2018/01/07/20 [id number] Ambulatory [facility] [place] Repository 01/06/2018/01/08/20 [id number] Ambulatory [facility] [place] Repository 01/03/2018/01/04/20 [id number] Ambulatory [place] [facility] [place] Repository 12/23/2017/01/01/20 [id number] PEYMAN GUERRERO Inpatient [place] [facility] Other [place] Rep[place] 12/21/2017/12/22/19 [id number] Ambulatory [place] [facility] [place] Repository 12/21/2017/12/22/19 [id number] Ambulatory [place] 18 [facility] Other [place] Repository 12/21/2017/12/22/19 [id number] Ambulatory [address] MEDICAL Repository CENTERBuildi ng:CAGWS 12/20/2017/12/21/19 [id number] Ambulatory [place] [facility] [place] Repository 12/20/2017/12/22/19 [id number] Ambulatory [place] [facility] [place] Repository 12/10/2017/12/15/19 [id number] LUCRECIA, Inpatient [place] 18 GLORIA A Encounter Clinic Other [place] Rep[place] 12/10/2017/12/18/19 [id number] Ambulatory [place] [facility] [place] Repository 12/06/2017/12/06/19 [id number] Emergency [place] [address] [place] [address] ding:ED Repository 12/02/2017/12/02/19 [id number] Ambulatory [place] [facility] [place] Repository 11/17/2017/11/17/19 [id number] Ambulatory [place] 18 [facility] Other [place] Repository 11/17/2017/11/17/19 [id number] Ambulatory [address] MEDICAL Repository UPTONBuildi ng:CAGWS 11/17/2017/11/17/19 [id number] Ambulatory [place] 18 [facility] Main [place] Rep[place] PAYERS PAYERS ENCOUNTER GUARANTOR PAYER SUBSCRIBER SOURCE 11/12/2018 LUZ Espinosa MAIN Insurance:MEDICARE MCCLAINDOB: [facility] [id number] of [facility] Hospit[facility] [address]Uin: Number: Repository [id number] (HP) Date:2018-11-12 11/12/2018 Secondary NOT GIVENUNK [place] Insurance:SELF PAY [facility] Number: Effective Repository Date:2018-11-12 11/12/2018 LUZ G Primary NOT GIVENUNK [place] [id number] Insurance:SELF PAY [facility] [address]Qcv: Number: Effective Repository Date:2018-11-12 (HP) 11/05/2018 [facility] Health McClainDOB: Insurance:MedicarePol McClainDOB: System icy Number: Effective [id number] Repository [facility] Date: [place], [place] [address]Arc: () 11/05/2018 Secondary [facility] Health Insurance:MedicarePol McClainDOB: System icy Number: Effective [id number] Repository Date: 11/04/2018 LUZ G Primary LUZ G Wal[place] [id number] MA[address] Insurance:MEDICARE MCCLAINDOB: [facility] [id number] of New Mexico Hospitals [address]Czc: Number: Repository [id number] () Date:2018-11-04 11/04/2018 Secondary NOT GIVENUNK [place] Insurance:SELF PAY [facility] Number: Effective Repository Date:2018-11-04 11/03/2018 LUZ G Primary LUZ G [place] [id number] MA[address] Insurance:MEDICARE MCCLAINDOB: [facility] [id number] of New Mexico Hospitals [address]Rzg: Number: Repository [id number] (HP) Date:2018-10-21 11/03/2018 Secondary NOT GIVENUNK [place] Insurance:SELF PAY [facility] Number: Effective Repository Date:2018-11-03 11/03/2018 LUZ Franco Primary LUZ [id number] Insurance:MEDICARE MCCLAINDOB: Community [facility] [id number] Hospital [place] [address]Gbl: Number: Repository [id number] (HP) Date:2018-10-21 11/03/2018 Secondary NOT GIVENUNK [place] Insurance:SELF PAY [facility] Number: Effective Repository Date:2018-10-21 09/02/2018 LUZ Franco Primary [facility] Number: [id number] Repository [address] [id number] [place], [place] Date: [address]Qks: (HP) 08/18/2018 LUZ Franco Primary LUZ [id number] MA[address] Insurance:MEDICARE MCCLAINDOB: [facility] STAPT [place], PART A [facility] [id number] Hospital [place] [address]Krh: Number: Repository [id number] (HP) Date:2018-08-11 08/18/2018 Secondary NOT GIVENUNK [place] Insurance:SELF PAY [facility] Number: Effective Repository Date:2018-08-18 08/17/2018 LUZ Franco Primary LUZ [id number] Insurance:MEDICARE MCCLAINDOB: [facility] [place] [id number] Hospital [place] [address]Qjh: Number: Repository [id number] (HP) Date:2018-08-11 08/17/2018 Secondary NOT GIVENUNK [place] Insurance:SELF PAY [facility] Number: Effective Repository Date:2018-08-11 06/17/2018 LUZ Franco Primary LUZ [id number] Insurance:MEDICARE MCCLAINDOB: [facility] STAPT [place], [facility] [id number] [place] [address]Sjh: Number: Repository [id number] (HP) Date:2018-05-13 06/17/2018 Secondary NOT GIVENUNK [place] Insurance:SELF PAY [facility] Number: Effective Repository Date:2018-05-13 06/02/2018 LUZ [facility] Insurance:MEDICARE A MCCLAINDOB: Health System S AND BPolicy Number: [id number] Repository [address] [id number] [place], [place] Date: [address]Mxf: (HP) 05/24/2018 LUZ Anaya [facility]IND[facility]: Insurance:MEDICARE A MCCLAINDOB: Health System S AND BPolicy Number: [id number] Repository [address] [id number] [place], [place] Date: [address]Hya: (HP) 05/19/2018 LUZ Keyes [id number] MA[address] Insurance:MEDICARE MCCLAINDOB: Community [address] [place], [facility] [id number] Hospital [place] [address]Zhp: Number: Repository [id number] () Date:2018-05-19 05/19/2018 Secondary NOT GIVENUNK [place] Insurance:SELF PAY [facility] Number: Effective Repository Date:2018-05-19 05/13/2018 LUZ Franco Primary LUZ Keyes [id number] Insurance:MEDICARE MCCLAINDOB: Community [address] [place] [id number] [place] [address]Lvx: Number: Repository [id number] () Date:2018-05-11 05/13/2018 Secondary NOT GIVENUNK [place] Insurance:SELF PAY [facility] Number: Effective Repository Date:2018-05-13 05/11/2018 LUZ Franco Primary LUZ Keyes [id number] MA[address] Insurance:MEDICARE MCCLAINDOB: Community [address] [place], [facility] [id number] Hospital [place] [address]Uyi: Number: Repository [id number] (HP) Date:2018-05-11 05/11/2018 Secondary NOT GIVENUNK [place] Insurance:SELF PAY [facility] Number: Effective Repository Date:2018-05-11 05/11/2018 LUZ [id number] Insurance:MEDICARE MCCLAINDOB: Community [address] [place], [facility] [id number] Hospital [place] [address]Jnq: Number: Repository [id number] (HP) Date:2018-05-11 05/11/2018 Secondary NOT GIVENUNK [place] Insurance:SELF PAY [facility] Number: Effective Repository Date:2018-05-11 05/11/2018 LUZ Franco Primary LUZ [id number] Insurance:MEDICARE MCCLAINDOB: Community [address] [place] [id number] Hospital [place] [address]Aqk: Number: Repository [id number] (HP) Date:2018-05-11 05/11/2018 Secondary NOT GIVENUNK [place] Insurance:SELF PAY [facility] Number: Effective Repository Date:2018-05-11 05/11/2018 LUZ Franco Primary LUZ [id number] Insurance:MEDICARE MCCLAINDOB: Community [address] [place] [id number] [place] [address]Xvb: Number: Repository [id number] (HP) Date:2018-05-11 05/11/2018 Secondary NOT GIVENUNK [place] Insurance:SELF PAY [facility] Number: Effective Repository Date:2018-05-11 05/11/2018 LUZ [id number] Insurance:MEDICARE MCCLAINDOB: Community [address] [place] [id number] [place] [address]Tmf: Number: Repository [id number] (HP) Date:2018-05-11 05/11/2018 Secondary NOT GIVENUNK [place] Insurance:SELF PAY [facility] Number: Effective Repository Date:2018-05-11 05/11/2018 LUZ Franco Primary LUZ Franco Wal[place] [id number] MA[address] Insurance:MEDICARE MCCLAINDOB: Community [address] [place], [facility] [id number] of New Mexico Hospitals [address]Lbe: Number: Repository [id number] (HP) Date:2018-05-11 05/11/2018 Secondary NOT GIVENUNK [place] Insurance:SELF PAY [facility] Number: Effective Repository Date:2018-05-11 04/22/2018 LUZ Franco Primary LUZ G Wal[place] [id number] MA[address] Insurance:MEDICARE MCCLAINDOB: Community [address] [place] [id number] [place] [address]Qsy: Number: Repository [id number] (HP) Date:2018-04-21 04/22/2018 Secondary NOT GIVENUNK [place] Insurance:SELF PAY [facility] Number: Effective Repository Date:2018-04-22 04/21/2018 LUZ Franco Primary LUZ Franco Wal[place] [id number] Insurance:MEDICARE MCCLAINDOB: Community [address] [place], [facility] [id number] of New Mexico Hospitals [address]Aki: Number: Repository [id number] (HP) Date:2018-04-21 04/21/2018 Secondary NOT GIVENUNK [place] Insurance:SELF PAY [facility] Number: Effective Repository Date:2018-04-21 04/21/2018 Luz Franco Primary Luz G [place] [id number] Insurance:MEDICARE ClainDOB: Community [address] [place], [facility] [id number] [place] [address]Frp: Number: Repository [id number] (HP) Date:2018-04-21 04/21/2018 Secondary NOT GIVENUNK [place] Insurance:SELF PAY [facility] Number: Effective Repository Date:2018-04-21 04/21/2018 LUZ Franco Primary LUZ Franco [place] [id number] Insurance:MEDICARE MCCLAINDOB: Community [address] [place], [facility] [id number] [facility] [address]Vpo: Number: Repository [id number] (HP) Date:2018-04-21 04/21/2018 Secondary NOT GIVENUNK [place] Insurance:SELF PAY [facility] Number: Effective Repository Date:2018-04-21 04/20/2018 Luz Primary Luz [facility] Health McClainDOB: Insurance:MedicarePol [facility] HospitallainDOB: System icy Number: Effective [id number] Repository [facility] Date: [place], [place] [address]Cnx: (HP) 04/20/2018 [facility] Insurance:MedicarePol McClainDOB: System icy Number: Effective [id number] Repository Date: 01/19/2018 Luz Franco Primary Luz G [place] [id number] Insurance:MEDICARE ClainDOB: Community [address] [place] [id number] of New Mexico Hospitals [address]Qpr: Number: Repository [id number] () Date:2017-12-01 01/19/2018 Secondary NOT GIVENUNK [place] Insurance:SELF PAY [facility] Number: Effective Repository Date:2017-12-01 01/18/2018 LUZ Franco Primary LUZ Franco Wilson [facility]: Insurance:MEDICARE A MCCLAINDOB: Health System S AND BPolicy Number: [id number] Repository [address] [id number] [place], [place] Date: [address]Kbf: (HP) 12/21/2017 LUZ Franco Primary LUZ [facility]: Insurance:MEDICARE A MCCLAINDOB: Health System S AND BPolicy Number: [id number] Repository [address] [id number] [place], [place] Date: [address]Xum: (HP) 12/06/2017 Luz Franco Primary Luz G [place] [address] Insurance:MEDICARE ClainDOB: Community [address] [place], PART A olicy [id number] [facility] [address]Dkq: Number: Repository [id number] () Date:2017-12-06 12/06/2017 Secondary NOT GIVENUNK [place] Insurance:SELF PAY Community [facility] Number: Effective Repository Date:2017-12-06 11/17/2017 LUZ Franco Primary [facility] SystemINDOB: Insurance:MEDICARE A [facility]: [facility] S AND BPolicy Number: [id number] Repository [address] [id number] [place] Date: [address]Lef: ()
== END 2018-11-04 15:11 | disposition short-term general hospital (02) ==
PROVIDERS: Emergency Provider Emergency Medicine; Family Provider Family Medicine; PCP Family Medicine
DX: I63.233 Cerebral infarction due to unspecified occlusion or stenosis of bilateral carotid arteries (principal); R29.700 NIHSS score 0; R29.810 Facial weakness; R47.81 Slurred speech; G83.24 Monoplegia of upper limb affecting left nondominant side; I13.2 Hypertensive heart and chronic kidney disease with heart failure and with stage 5 chronic kidney disease, or end stage renal disease; E11.22 Type 2 diabetes mellitus with diabetic chronic kidney disease; I50.9 Heart failure, unspecified; N18.6 End stage renal disease; I48.91 Unspecified atrial fibrillation; I25.10 Atherosclerotic heart disease of native coronary artery without angina pectoris; J44.9 Chronic obstructive pulmonary disease, unspecified; E78.5 Hyperlipidemia, unspecified; Z99.2 Dependence on renal dialysis; Z95.1 Presence of aortocoronary bypass graft; Z79.01 Long term (current) use of anticoagulants; Z79.4 Long term (current) use of insulin; Z79.899 Other long term (current) drug therapy; Z87.891 Personal history of nicotine dependence
CPT/HCPCS: 70450; 70496; 70498; 71045; 80048; 82962; 84484; 85025; 85610; 85730; 93005; 96374; 96375; 96376; 99285; J7030; Q9967; A4216; J2405

== ENCOUNTER 2018-11-12 16:01 | Emergency (ER) | payer MEDICARE, SELFPAY ==
[2018-11-04 10:48] VITALS: BMI 32.4
[2018-11-12 16:03] VITALS: BP 108/83; PULSE 66; RESP 18; TEMP 36.6; O2SAT 98; BMI 31.1
--- NOTE | 2018-11-12 16:21 | CT_ITS ---
We are attempting to reach Israel Brown MD to discuss findings. An addendum with communication details will be sent when the communication is complete. STUDY: CT BRAIN WITHOUT CONTRAST REASON FOR EXAM: Female, 78 years old. Altered mental status. Slurred speech. RADIATION DOSAGE (If Supplied By Facility): CTDIvol = ( 44.99 ) mGy, DLP = ( 796.11 ) mGycm TECHNIQUE: Transaxial CT imaging of the brain was performed without administration of intravenous contrast material. Individualized dose optimization techniques were used for this CT. COMPARISON: Multiple previous exams including the CT scan 11/04/2018 and CTAs.. FINDINGS: There is a focal low-attenuation within the right parietal lobe consistent with acute or subacute infarction. No hemorrhage. No significant mass effect. No other changes. Mild atrophy. Diffuse chronic white matter disease. No midline shift. Normal visualized paranasal sinuses. CT/Brain/Head without Contrast IMPRESSION: Moderate size nonhemorrhagic acute or subacute right parietal infarction. Electronically Signed: Christiano Israel MD at 17:21 EST , Service support ,
[2018-11-12 16:50] LABS: Bedside Glucose 128 mg/dL (70-110)
[2018-11-12 17:02] VITALS: BP 110/45; PULSE 64; RESP 14; O2SAT 97
[2018-11-12 18:49] VITALS: BP 117/54; PULSE 60; RESP 20; O2SAT 98
--- NOTE | 2018-11-12 19:15 | ED.VISSUMM ---
- ER Visit Summary Date of Service: 11/12/18 Chief Complaint: Strokelike symptoms History of Present Illness: The patient is a 78 F presenting for evaluation secondary to strokelike symptoms. Patient has an underlying history of poor health. She has coronary artery disease diabetes hypertension high cholesterol end-stage renal disease on dialysis A. fib and had a stroke last week. Patient stroke symptoms last week were associated with weakness on the left. Patient was evaluated at this facility, had a extensive workup in the emergency department and was noted to have vascular abnormalities in her carotids and was sent to a tertiary care center for vascular evaluation. Patient was ultimately discharged a couple of days ago back to a 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 without any intervention on her carotid arteries. She is on maximum therapy with anticoagulation, and is on blood pressure and cholesterol medications. Patient apparently today had an episode of speech difficulty at 315. Additionally this was associated with some left-sided facial droop. Symptoms have seem to since improved, patient has baseline left leg weakness secondary to the stroke. Physical Examination: Vital signs within normal limits. Well-nourished female no acute distress. Head normocephalic, moist mucous membranes. No JVD. Heart regular rate and rhythm 2 out of 6 systolic murmur. Lungs are clear with a right-sided chest port is clean dry and intact. Abdomen soft nontender. Extremities nontender. Skin normal color no rash. Patient's NIH stroke scale was found to be 1 secondary to left leg weakness which is the patient's new baseline. Test Results: Blood glucose found to be normal. CT brain demonstrates the patient's subacute right sided parietal stroke without any evidence of hemorrhagic transformation Emergency Department Course and Treatment: Patient presented secondary to possible new onset stroke symptoms. A CT brain shows subacute stroke, but no hemorrhagic transformation. I was not able to appreciate any sort of new stroke symptoms on this patient on multiple repeat evaluations through a 3-hour stay in the emergency department. I discussed patient's case on the telephone with neurology, and we are in agreement that the patient just recently underwent a full workup for stroke and is on maximal medical therapy. There is no indication for readmission at this time. I discussed this with family they are comfortable with this and the patient was discharged. Disposition: Discharge Impression: 1. Subacute right parietal stroke This note was generated with [employer] software. It may contain incorrect words, spelling, and punctuation that were not noted in review of the chart prior to signing ED Disposition - Plan for ED Patient: Disposition: Home or Assisted Living Chief Complaint: Neuro S/Sx Diagnosis: Ischemic stroke Instructions: ED Stroke Completed Referrals: Mook Rain MD [Primary Care Provider] - 5-7 Days
[2018-11-12 19:17] VITALS: BP 103/91; PULSE 60; RESP 20
[2018-11-12 19:33] VITALS: BP 103/91; PULSE 63; RESP 20
--- NOTE | 2018-11-12 19:33 | ED.RN ---
called and gave report to [facility]
== END 2018-11-12 20:03 | disposition home or self-care (01) ==
PROVIDERS: Emergency Provider Emergency Medicine; Family Provider Family Medicine; PCP Family Medicine
DX: I63.9 Cerebral infarction, unspecified (principal); R47.81 Slurred speech; R29.810 Facial weakness; I12.0 Hypertensive chronic kidney disease with stage 5 chronic kidney disease or end stage renal disease; E11.22 Type 2 diabetes mellitus with diabetic chronic kidney disease; N18.6 End stage renal disease; I25.10 Atherosclerotic heart disease of native coronary artery without angina pectoris; I48.91 Unspecified atrial fibrillation; E78.00 Pure hypercholesterolemia, unspecified; Z99.2 Dependence on renal dialysis; Z86.73 Personal history of transient ischemic attack (TIA), and cerebral infarction without residual deficits; Z79.4 Long term (current) use of insulin; Z79.899 Other long term (current) drug therapy
CPT/HCPCS: 70450; 82962; 99284

== ENCOUNTER 2018-11-28 09:51 | Inpatient (IN) | payer MEDICARE, SELFPAY ==
[2018-11-28] VITALS (39 sets, daily range): BP systolic 51–124; BP diastolic 16–93; PULSE 60–693; RESP 14–27; TEMP 36.3–37.9; O2SAT 90–100; BMI 31.1; BMI 30.4
--- NOTE | 2018-11-28 10:11 | EKG12_ITS ---
Test Reason : FALL Blood Pressure : / mmHG Vent. Rate : 064 BPM Atrial Rate : 227 BPM P-R Int : 000 ms QRS Dur : 222 ms QT Int : 572 ms P-R-T Axes : 000 -82 098 degrees QTc Int : 590 ms Ventricular-paced rhythm Abnormal ECG Confirmed by MIKE CERVANTES MD ([id number]), web content editor JASON OSORIO ([id number]) on 12/02/2018 8:59:14 AM Referred By: CASSIE Confirmed By:MIKE CERVANTES MD
--- NOTE | 2018-11-28 10:21 | CT_ITS ---
STUDY: CT BRAIN WITHOUT CONTRAST REASON FOR EXAM: Female, 78 years old. Fall with head injury. Patient on blood thinners RADIATION DOSAGE (If Supplied By Facility): CTDIvol = ( 44.99 ) mGy, DLP = ( 745.49 ) mGycm TECHNIQUE: Transaxial CT imaging of the brain was performed without administration of intravenous contrast material. Individualized dose optimization techniques were used for this CT. COMPARISON: 11/12/2018 FINDINGS: Normal soft tissue structures. Normal calvarium. There is mild cerebral atrophy with widening of the extra-axial spaces and ventricular dilatation. There are areas of decreased attenuation within the white matter tracts of the supratentorial brain, consistent with microvascular disease changes. Normal basal ganglia and thalami. Normal brainstem. There is mild cerebellar atrophy. There is no intracranial hemorrhage. There are no findings of an acute ischemic infarction. Normal visualized paranasal sinuses. CT/Brain/Head without Contrast IMPRESSION: Chronic involutional changes of the brain. Electronically Signed: Demario Jha DO at 12:53 EST Tel , Service support ,
--- NOTE | 2018-11-28 10:22 | ED.VISSUMM ---
- ER Visit Summary Date of Service: 11/28/18 Chief Complaint: Falls History of Present Illness: The patient is a 78 F history of prior CVA on Eliquis, insulin-dependent diabetes, CAD, SD, COPD on 2-1/2 L O2 with end-stage renal disease. Patient states that she had multiple falls yesterday she believes 4. She did hit the back left side of her head. She is on blood thinner. She also states that today she has had nausea, vomiting and diarrhea. No fever. No melena. No chest pain. States she typically does not fall. Physical Examination: Initial blood pressure is 75/60 afebrile. Pulse ox 100% on oxygen. No hypoxia. H EENT exam small contusion left posterior scalp. No big hematoma. No laceration. Pupils round reactive light. No facial trauma. C-spine nontender. Lungs clear to auscultation bilaterally. Heart regular rhythm rate about 60 no murmur. Chest wall nontender. Abdomen soft and nontender. Pelvic girdle intact. Hips nontender. No external rotation or shortening. Patient is moving all 4 extremities. She has normal form drafter strength bilaterally. Normal dorsi plantar flexion. There is no deformities or tenderness to either the upper or lower extremities. Neurologically she is awake and alert with no focal motor deficits. Back is nontender. Test Results: Hemoglobin of 14 hematocrit 45. Chemistries unremarkable gap of 14. BUN of 43 creatinine 7.27 she is dialysis patient. UA is pending there is not enough to send as of this time even with catheter. Troponin is elevated 0.47 but she is chronic elevated troponins this is actually lower than her baseline. Lactic acid is elevated at 4.8. EKG is a paced rhythm rate of 64. Chest x-ray portable one view shows no acute abnormality. There is a pacemaker on the left and a Vas-Cath for dialysis on the right. Pelvis x-ray shows no acute abnormality. CT of her brain read by the radiologist reviewed by me shows no acute abnormality. Blood cultures and C. difficile cultures are both pending. Emergency Department Course and Treatment: Patient with multiple falls yesterday on Eliquis and hit her head. She also hypotensive after nausea, vomiting and diarrhea. Due to her hypotension she will be treated with a half a liter of normal saline initially blood pressure reassessed. Patient was initially treated with a half a liter normal saline. Then a total of a full liter. With her remaining hypotensive a second liter is been started. However she is tolerating her hypotension well. She is awake alert talking. She is conversing normally. She states she feels improving with IV fluids. We are holding off on a central line at this time. Treatment Plan: I spoke to the hospitalist he and I both think this is from dehydration and or diarrhea. We are holding off on antibiotics at this time. Disposition: [] Impression: Multiple falls yesterday Fall with head injury on blood thinner Eliquis Nausea, vomiting and diarrhea with dehydration Hypotension secondary to dehydration End-stage renal disease dialysis Diarrhea rule out C. difficile Critical care time 35 minutes This note was generated with [employer] dictation software. It may contain incorrect words, spelling, and punctuation that were not noted in review of the chart prior to signing ED Disposition - Plan for ED Patient: Referrals: Mook Rain MD [Primary Care Provider] -
--- NOTE | 2018-11-28 10:26 | ED.DCSUM_ITS ---
- ER Visit Summary Date of Service: 11/28/18 Chief Complaint: Falls History of Present Illness: The patient is a 78 F history of prior CVA on Eliquis, insulin-dependent diabetes, CAD, DE, COPD on 2-1/2 L O2 with end-stage renal disease. Patient states that she had multiple falls yesterday she believes 4. She did hit the back left side of her head. She is on blood thinner. She also states that today she has had nausea, vomiting and diarrhea. No fever. No melena. No chest pain. States she typically does not fall. Physical Examination: Initial blood pressure is 75/60 afebrile. Pulse ox 100% on oxygen. No hypoxia. H EENT exam small contusion left posterior scalp. No big hematoma. No laceration. Pupils round reactive light. No facial trauma. C-spine nontender. Lungs clear to auscultation bilaterally. Heart regular rhythm rate about 60 no murmur. Chest wall nontender. Abdomen soft and nontender. Pelvic girdle intact. Hips nontender. No external rotation or shortening. Patient is moving all 4 extremities. She has normal charge coordinator strength bilaterally. Normal dorsi plantar flexion. There is no deformities or tenderness to either the upper or lower extremities. Neurologically she is awake and alert with no focal motor deficits. Back is nontender. Test Results: Hemoglobin of 14 hematocrit 45. Chemistries unremarkable gap of 14. BUN of 43 creatinine 7.27 she is dialysis patient. UA is pending there is not enough to send as of this time even with catheter. Troponin is elevated 0.47 but she is chronic elevated troponins this is actually lower than her baseline. Lactic acid is elevated at 4.8. EKG is a paced rhythm rate of 64. Chest x-ray portable one view shows no acute abnormality. There is a pacemaker on the left and a Vas-Cath for dialysis on the right. Pelvis x-ray shows no acute abnormality. CT of her brain read by the radiologist reviewed by me shows no acute abnormality. Blood cultures and C. difficile cultures are both pending. Emergency Department Course and Treatment: Patient with multiple falls yesterday on Eliquis and hit her head. She also hypotensive after nausea, vomiting and diarrhea. Due to her hypotension she will be treated with a half a liter of normal saline initially blood pressure reassessed. Patient was initially treated with a half a liter normal saline. Then a total of a full liter. With her remaining hypotensive a second liter is been started. However she is tolerating her hypotension well. She is awake alert talking. She is conversing normally. She states she feels improving with IV fluids. We are holding off on a central line at this time. Treatment Plan: I spoke to the hospitalist he and I both think this is from dehydration and or diarrhea. We are holding off on antibiotics at this time. Disposition: [] Impression: Multiple falls yesterday Fall with head injury on blood thinner Eliquis Nausea, vomiting and diarrhea with dehydration Hypotension secondary to dehydration End-stage renal disease dialysis Diarrhea rule out C. difficile Critical care time 35 minutes This note was generated with [employer] dictation software. It may contain incorrect words, spelling, and punctuation that were not noted in review of the chart prior to signing ED Disposition - Plan for ED Patient: Referrals: Mook Rain MD [Primary Care Provider] -
[2018-11-28 11:14] LABS: Absolute Lymphocyte Count 1.28 X10^3/ul (0.83-4.51); Absolute Neutrophil Count 15.7 X10^3/uL (2.0-7.7); Basophil# 0.03 X10^3/uL; Basophil% 0.2 % (0-1); Eosinophil# 0.04 X10^3/uL; Eosinophils% 0.2 % (0-5); Hematocrit 45.4 % (37-47); Hemoglobin 14.4 g/dl (12.0-15.0); Lymphocyte # 1.28 X10^3/ul (4.0); Lymphocyte % 7.1 % (19-41); Mean Corp Hgb Conc 31.7 g/gl (32-36); Mean Corpuscular Hgb 32.1 pg (27.0-32.0); Mean Corpuscular Volume 101.1 fL (81-99); Monocyte# 0.76 X10^3/uL; Monocyte% 4.2 % (0-10); Neutrophil # 15.72 X10^3/uL (2.7-7.7); Neutrophil % 87.9 % (47-70); POSITIVE COUNT NO; POSITIVE DIFFERENTIAL NO; POSITIVE MORPHOLOGY NO; Platelet Count 160 K/mm3 (150-450); RBC Distribution Width CV 14.6 % (11.6-14.6); RBC Distribution Width SD 53.5 fl (35.1-43.9); Red Blood Count 4.49 M/mm3 (4.2-5.4); White Blood Count 17.9 K/mm3 (4.4-11.0)
[2018-11-28] MEDS: Ondansetron 4 MG/2 ML Vial IV ×2 (11:26→19:10)
[2018-11-28 11:29] LABS: Anion Gap 14 (5-15); BUN 43 mg/dL (7-18); BUN/Creat Ratio 5.9 RATIO (10-20); Calcium,Total 8.9 mg/dL (8.5-10.1); Chloride 98 mmol/L (98-107); Creatinine, Serum 7.27 mg/dL (0.55-1.02); EST Glomerular Filtration Rate 6 mL/min (>60); Est Glom Filt Rate - Afr Amer 7 mL/min (>60); Estimated Creatinine Clearance 6.54 ml/min; Glucose 149 mg/dL (74-106); Potassium 5.1 mmol/L (3.5-5.1); Sodium Level 136 mmol/L (136-145)
[2018-11-28 11:33] LABS: Lactic Acid 4.8 mmol/L (0.4-2.0)
[2018-11-28] MEDS: Loperamide 2 MG Capsule 4 MG PO (11:34)
--- NOTE | 2018-11-28 11:54 | NURSING ---
Addendum entered by Harleen Iraheta 11/28/18 17:51: 1154. SPOKE WITH MD ABOUT INITIATING ATB. NO NEW ORDERS GIVEN. Original Note: SPOKE WITH MD ABOUT SEPSIS ALERT CHECKLIST AND PT'S LABS AND VITALS. ORDERS GIVEN.
--- NOTE | 2018-11-28 12:03 | RAD_ITS ---
STUDY: X-RAY CHEST REASON FOR EXAM: Female, 78 years old. Nausea and diarrhea following a fall. TECHNIQUE: Single AP portable view of the chest. COMPARISON: Comparison is made with prior examination dated November 04, 2018. FINDINGS: A right-sided double-lumen catheter is seen with the tip at the junction of the superior vena cava and right atrium. Stable blunting of the left costophrenic angle with mild increased markings at the left lung base most likely representing chronic changes. Sternal cerclage wires and vascular clips are present from a prior sternotomy and coronary artery bypass graft procedure (CABG). A left-sided unipolar pacemaker is seen. Mild cardiomegaly. Normal mediastinum and samuel. Normal visualized pulmonary arteries. There is atherosclerotic calcification of the aortic arch with tortuosity. Normal visualized thoracic spine. Normal visualized ribs, clavicles, and shoulders. There is no demonstrated abnormality of the visualized soft tissue structures of the upper abdomen. RAD/Chest 1 View (Portable) IMPRESSION: Blunting of the left costophrenic angle with findings suggestive of scarring at the left lung base. Electronically Signed: Antonio Pascual MD at 14:28 EST , Service support ,
--- NOTE | 2018-11-28 12:07 | RAD_ITS ---
STUDY: X-RAY - PELVIS REASON FOR EXAM: Female, 78 years old. Buttock pain with fall TECHNIQUE: One view of the pelvis was obtained. COMPARISON: None. FINDINGS: There is a non-specific bowel gas pattern. Normal visualized soft tissue structures. There is narrowing with cortical sclerosis and osteophyte formation of the sacroiliac joint consistent with degenerative osteoarthritic changes. Normal visualized bilateral superior and inferior pubic rami. Normal pubic symphysis. Normal ischial tuberosities. There are osteoarthritic changes of the right femoral head with marginal osteophyte formation. Normal right acetabulum. There is mild articular joint space narrowing of the right hip. There are osteoarthritic changes of the left femoral head with marginal osteophyte formation. Normal left acetabulum. There is mild articular joint space narrowing of the left hip. Pelvic phleboliths. RAD/Pelvis 1 or 2 Views IMPRESSION: No acute findings Electronically Signed: Demario Jha DO at 12:41 EST Tel , Service support ,
--- NOTE | 2018-11-28 12:12 | ED.RN ---
CALLED [facility] AND SPOKE TO CAROLYN ONE OF HER NURSES, REQUESTING A MEDICATION LIST. CAROLYN STATED THAT HE WOULD FAX IT TO US.
--- NOTE | 2018-11-28 12:33 | ED.RN ---
SCANT AMT OF URINE IN ALANIS TUBING, ENOUGH TO INDICATE THAT ALANIS WAS PLACED PROPERLY.
--- NOTE | 2018-11-28 12:56 | ED.RN ---
PT DOES NOT PRODUCE MUCH URINE D/T DIALYSIS. AWARE UNABLE TO COLLECT U/A AT THIS TIME.
--- NOTE | 2018-11-28 13:14 | ED.RN ---
MD AWARE OF VITALS. MANUAL BP 81/55.
[2018-11-28] MEDS: 0.9% Normal Saline 1,000 ML 999 ML IV ×3 (13:20→17:30)
--- NOTE | 2018-11-28 13:36 | ED.RN ---
Addendum entered by Harleen Iraheta 11/28/18 17:52: 1336. AFTER INQUIRING ABOUT CX FOR PT, ASKED MD ABOUT INITIATING ATB, MD STATED HE WAS WAITING ON THE PENDING LAB RESULTS. PRIOR TO INQUIRING ABOUT ATB, I BELIEVE THAT EDSON PETIT SPOKE WITH REGARDING ATB. EDSON PETIT IS NO LONGER HERE TO SPEAK TO HER ABOUT THIS. Original Note: SPOKE WITH MD REGARDING AN ORDER FOR CX. STATED THAT HE WOULD PLACE THE ORDER. THERE IS ONE SET IN LAB WITH WAS DRAWN WHEN IV WAS PLACED.
--- NOTE | 2018-11-28 14:31 | HP.PCM_ITS ---
Problem List (1) S/P CABG x 2 Status: Chronic Comment: Septal Myectomy and CABG X 2 with Left internal thor acic artery to the LAD, and reversed SVG of the PDA per Dr. Cheung @ [facility] [place] (2) Hypertension Status: Chronic (3) Hyperlipidemia Status: Chronic (4) Type 2 diabetes mellitus Status: Chronic (5) COPD (chronic obstructive pulmonary disease) Status: Chronic (6) Chronic hypoxemic respiratory failure Status: Chronic (7) Atrial fibrillation Status: Chronic (8) End stage renal disease Status: Chronic (9) Peripheral vascular disease Status: Chronic (10) Congestive heart failure Status: Chronic (11) History of PTCA Status: Chronic Comment: PCI X 6 to RCA in 2013; PCI X 3 in 2014: reports not available but referenced in Dr. Saunders's office visit dated 05/24/2018 History of Present Illness Date of Admission: 11/28/18 Chief Complaint: Fall. The patient is a 78 year old F with complicated past medical history as mentioned above presented to the emergency room from the assisted because of fall. The patient fell yesterday and she was brought to the emergency room today. According to the patient, she fell multiple times yesterday about 4 times. She fell on the back of her head and her lower back. She complains of diarrhea that has been going since yesterday, 4-5 times daily with mild nausea without vomiting. She reported mild abdominal discomfort. She denied chest pain, palpitation, dizziness or lightheadedness. She mentioned that recently, her blood pressure has been running low. She has history of end-stage renal disease and she is on hemodialysis on Mondays, Wednesdays and Fridays and she has been following up with [facility]. She did have dialysis this past Wednesday but none today. She has history of CAD status post CABG and stents and she has been on lisinopril, metoprolol, statins and Eliquis. She has a history of type 2 diabetes mellitus which seems to be under control with Lantus and glargine insulin. In the emergency department, patient was hypotensive, afebrile, heart rate stable, pulse ox is 97% on 2 L. Her routine blood work was remarkable for leukocytosis, BUN of 43, creatinine of 7.27. Her troponin was 0 .470. Her lactic acid was 4.8. EKG revealed paced rhythm. Chest x-ray showed blunting of the left costophrenic angle, probably atelectasis, no acute infiltrate. CT scan brain showed no acute bleeding or infarct. X-ray of the pelvis showed no acute fractures or dislocation. She is being admitted for shock likely due to hypovolemic shock and lactic acidosis. Past Medical History Past Medical History (Chronic Problems): Chronic Problems (Last Updated 06/16/18 @ 10:57 by Arline Galindo) Hx of atrioventricular node ablation (Chronic 12/19/14) AV node RFA X2 noriega per report;Subsequent implant of single chamber ICD per Dr. 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 Cheung @ [facility]. Also subsequent PCI's :PCI X 6 to RCA in 2013; PCI X 3 in 2014: reports not available but referenced in Dr. Saunders's office visit dated 05/24/2018 History of ventricular septal myectomy (Chronic 07/18/04) Septal Myectomy and CABG X 2 with Left internal thoracic artery to the LAD, and reversed SVG of the PDA per Dr. Cheung @ [facility] S/P CABG x 2 (Chronic 07/18/04) Septal Myectomy and CABG X 2 with Left internal thoracic artery to the LAD, and reversed SVG of the PDA per Dr. Cheung @ [facility] Hypertension (Chronic) Hyperlipidemia (Chronic) Type 2 diabetes mellitus (Chronic) COPD (chronic obstructive pulmonary disease) (Chronic) Chronic hypoxemic respiratory failure (Chronic) Atrial fibrillation (Chronic) 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 12/11/16) Initial single chamber ICD implant was 12/19/[address] Loya @ [facility] [place]. S/P EP/RFA; subsequent upgrade to combination pacer/ICD implant 12/11/16 [employer] VR [id number] End stage renal disease (Chronic) Diabetic neuropathy (Chronic) Peripheral vascular disease (Chronic) Venous insufficiency of both lower extremities (Chronic) Congestive heart failure (Chronic) History of PTCA (Chronic) PCI X 6 to RCA in 2013; PCI X 3 in 2014: reports not available but referenced in Dr. 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 Cheung @ [facility]. Also subseq uent PCI's :PCI X 6 to RCA in 2013; PCI X 3 in 2014: reports not available but referenced in Dr. Saunders's office visit dated 05/24/2018 Hypertension (Chronic) I10 Hyperlipidemia (Chronic) E78.5 Type 2 diabetes mellitus (Chronic) E11.9 COPD (chronic obstructive pulmonary disease) (Chronic) J44.9 Chronic hypoxemic respiratory failure (Chronic) J96.11 Atrial fibrillation (Chronic) I48.91 End stage renal disease (Chronic) N18.6 Diabetic neuropathy (Chronic) E11.40 Peripheral vascular disease (Chronic) I73.9 Venous insufficiency of both lower extremities (Chronic) I87.2 Congestive heart failure (Chronic) I50.9 Allergies latex Allergy (Verified 11/12/18 16:07) Anaphylaxis meperidine [From Demerol] Allergy (Verified 11/12/18 16:07) Hives Penicillins Allergy (Verified 11/12/18 16:07) Hives Tetracyclines Allergy (Verified 11/12/18 16:07) Hives aspirin Adverse Reaction (Verified 11/12/18 16:07) Unknown atorvastatin Adverse Reaction (Verified 11/12/18 16:07) Unknown codeine Adverse Reaction (Verified 11/12/18 16:07) Unknown hydromorphone [From Dilaudid] Adverse Reaction (Verified 11/12/18 16:07) Unknown pentazocine Adverse Reaction (Verified 11/12/18 16:07) Unknown pioglitazone Adverse Reaction (Verified 11/12/18 16:07) Unknown propoxyphene Adverse Reaction (Verified 11/12/18 16:07) Unknown sulfamethoxazole [From Bactrim] Adverse Reaction (Verified 11/12/18 16:07) Unknown trimethoprim [From Bactrim] Adverse Reaction (Verified 11/12/18 16:07) Unknown chloroprep Allergy (Uncoded 11/12/18 16:07) Unknown Home Medications: Ambulatory Orders Medication Instructions Recorded Insulin Glargine,Hum.rec.anlog 16 unit SC SUTUTH 11/04/18 [Lantus] Metoclopramide [Reglan] 10 mg PO BID 11/04/18 Pregabalin [Lyrica] 25 mg PO DAILY 11/04/18 Apixaban [Eliquis] 5 mg PO BID 11/12/18 Lisinopril 2.5 mg PO DAILY 11/12/18 Metoprolol Succinate 25 mg PO DAILY 11/12/18 Rosuvastatin Calcium [Crestor] 20 mg PO QHS 11/12/18 Amiodarone HCl 200 mg PO DAILY 11/28/18 Diphenhydramine HCl 25 mg PO Q6H PRN PRN 11/28/18 Docusate Sodium [Colace] 100 mg PO BID PRN 11/28/18 Insulin Glargine,Hum.rec.anlog 24 unit SC MOWEFR 11/28/18 [Basaglar Kwikpen U-100] Loperamide HCl [Loperamide] 2 mg PO Q6H PRN PRN 11/28/18 Magnesium Hydroxide [Milk Of 30 ml PO DAILY PRN PRN 11/28/18 Magnesia] Miconazole 100 gm TP BID 11/28/18 Nut.tx.impaired Renal Fxn,Soy 240 ml PO BID 11/28/18 [Novasource Renal 2 Dre] Pantoprazole Sodium [Protonix] 40 mg PO DAILY 11/28/18 Pregabalin [Lyrica] 25 mg PO MOWEFR 11/28/18 traMADol [Ultram (G)] 50 mg PO Q8H PRN PRN 11/28/18 Surgical History: Surgical History (Last Updated 06/16/18 @ 10:57 by Arline Galindo) Hx of atrioventricular node ablation (Chronic) Onset Date: 12/19/14 Z98.890 AV node RFA X2 noriega per report;Subsequent implant of single chamber ICD per Dr. Loya @ [facility], [place] History of ventricular septal myectomy (Chronic) Onset Date: 07/18/04 Z98.890 Septal Myectomy and CABG X 2 with Left internal thoracic artery to the LAD, and reversed SVG of the PDA per Dr. Cheung @ [facility] S/P CABG x 2 (Chronic) Onset Date: 07/18/04 Z95.1 Septal Myectomy and CABG X 2 with Left internal thoracic artery to the LAD, and reversed SVG of the PDA per Dr. Cheung @ [facility] 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) Onset Date: 12/11/16 Z95.810 Initial single chamber ICD implant was 12/19/[address] Loya @ [facility] [place]. S/P EP/RFA; subsequent upgrade to combination pacer/ICD implant 12/11/16 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 History Items: Hypertension Paternal Family History: Family History (Last Updated 06/16/18 @ 10:47 by Arline Galindo) Unknown No problems noted. History Items: Heart Disease Review of Systems Constitutional: Reports: Anorexia, Weakness, Fatigue. Denies: Chills, Fever Eyes: Denies: Blurred vision, Double vision, Drainage, Redness HEENT: Reports: Head Aches. Denies: Difficulty Hearing, Ear Pain, Eye Pain, Nasal Congestion, Sore Throat Cardiovascular: Reports: Light Headedness. Denies: Chest Pain, Chest Pressure, Chest Tightness, Heaviness, Palpitations, Syncope Respiratory: Denies: Cough, Pleuritic Pain, Shortness of Breath, Sputum production, Wheezing Gastrointestinal: Reports: Diarrhea, Nausea, Vomiting. Denies: Abdominal Pain, Constipation Genitourinary: Reports: Dysuria. Denies: Frequency, Hematuria Musculoskeletal: Denies: Arm Pain, Back Pain, Foot Pain Skin: Denies: Dryness, Rash Neurological: Reports: Headaches. Denies: Balance problems, Blurred vision, Double vision, Change in Speech, Slurred speech, Confusion, Incoordination, Numbness Psychiatric: Denies: Anxiety, Depression Endocrine: Denies: Change in Body Habitus, Polydipsia VTE Information - Inpt Only VTE Present on Admission: No VTE Mechan Device Prophylaxis: None VTE Pharm Prophylaxis ordered?: No - Physical Exam General: Alert, Oriented x3, Cooperative, No apparent distress HEENT: Atraumatic, PERRLA, EOMI, Normocephalic Oral: Moist Mucosa, No Gingival or Mucosal Lesions/ Ulcerations Neck: Supple, No JVD, Negative Carotid Bruits, Trachea Midline, Thyroid Normal Size and Texture Lungs: Clear to auscultation, No rhonchi, No wheeze, No rales Cardiovascular: Regular rate, Regular Rhythm, Normal S1, Normal S2, PMI Normal Abdomen: Bowel Sounds Present, Soft, Non Tender, Non-Distended, No Hepato- splenomegaly, Obese Extremities: No clubbing, No cyanosis, Edema - Trace edema, stasis dermatitis, multiple small nonhealing ulcers. Chronic. Skin: No rashes, Ulcer/ Wound Lymphatic: No Cervical, Supraclavicular, or Inguinal Adenopathy Neurological: Cranial nerves II-XII grossly intact, Motor Exam 5/5 strength throughout Psych/Mental Status: Normal Affect, Appropriate, Alert and oriented to time, place, person, mood and affect Vital Signs Temp Pulse Resp BP Pulse Ox 97.4 F L 61 27 H 81/48 L 97 11/28/18 14:26 11/28/18 14:26 11/28/18 14:26 11/28/18 14:26 11/28/18 14:26 Oxygen Flow Rate (L/min) 2 Oxygen Delivery Method Nasal Cannula Weight: 204 lb 9.423 oz Body Mass Index (BMI) 31.1 Finger Stick Blood Glucose 126 Laboratory Tests Past 24 Hrs 11/28/18 11/28/18 11/28/18 10:48 10:48 10:48 WBC 17.9 H RBC 4.49 Hgb 14.4 Hct 45.4 MCV 101.1 H MCH 32.1 H MCHC 31.7 L RDW 14.6 RDW Differential 53.5 H Plt Count 160 MPV 10.0 Immature Gran % (Auto) 0.400 Neut % (Auto) 87.9 H Lymph % (Auto) 7.1 L [place] % (Auto) 4.2 Eos % (Auto) 0.2 Baso % (Auto) 0.2 Absolute Neuts (auto) 15.7 H Absolute Lymphs (auto) 1.28 Total Counted Not Reportable Sodium 136 Potassium 5.1 Chloride 98 Carbon Dioxide 24.0 Anion Gap 14 BUN 43 H Creatinine 7.27 H Estim Creat Clear Calc 6.54 Est GFR (MDRD) Af Amer 7 L Est GFR (MDRD) Non-Af 6 L BUN/Creatinine Ratio 5.9 L Glucose 149 H Lactic Acid 4.8 H* Calcium 8.9 Troponin I 0.470 H Clinical Impression(s) from Imaging Studies Brain CT 11/28/18 10:21 IMPRESSION: Chronic involutional changes of the brain. Electronically Signed: Demario Jha DO at 12:53 EST Tel , Service support , Chest X-Ray 11/28/18 12:03 IMPRESSION: Blunting of the left costophrenic angle with findings suggestive of scarring at the left lung base. Electronically Signed: Antonio Pascual MD at 14:28 EST , Service support , Pelvis X-Ray 11/28/18 12:07 IMPRESSION: No acute findings Electronically Signed: Demario Jha DO at 12:41 EST Tel , Service support , Assessment/Plan This is a 78 years old female patient presented from the assisted to the ER because of fall, found to have hypotension without evidence of acute infection, consistent with shock probably hypovolemic shock as well as lactic acidosis which is attributed to tissue hypoperfusion and she is being admitted for treatment. #1 shock: Probably hypovolemic shock, less likely septic shock. Lactic acid is elevated. Chest x-ray showed no acute findings. Patient is afebrile, she does have leukocytosis. Urinalysis was not done because patient could not give a urine sample. She does have chronic nonhealing bilateral leg ulcers. Plan: Admit to ICU, generous IV fluids for hydration, blood culture, urinalysis, urine culture, stool for C. difficile, stool for enteric pathogens, critical care consult, start IV vasopressors if blood pressure does not respond to IV fluids, wound culture of both legs, may need to start IV vancomycin and meropenem because she has chronic leg ulcers with probable acute infection, repeat lactic acid in 3 hours, repeat CBC and CMP tomorrow morning, pro time and INR, PT OT evaluation and treatment. #2 lactic acidosis: This is probably due to tissue hypoperfusion due to hypotension versus septic shock which is less likely at this time. Plan for IV fluids, galeas cultures, repeat lactic acid in 3 hours, may need to start on IV vasopressors. #3 fall/head trauma: Could be due to low blood pressure as patient mentioned that she has been having issues with her blood pressure. CT scan brain showed no acute findings. Patient is on Eliquis. X-ray of the pelvis showed no acute fractures. #4 ESRD on hemodialysis: On dialysis on Mondays, Wednesdays and Fridays, plan for nephrology consult. #5 indeterminate troponin: This is chronic, denies any chest pain. EKG reviewed, revealed paced rhythm. Plan for serial cardiac enzymes. #6 chronic bilateral nonhealing leg ulcers: Legs are chronically red and erythematous. Acute infection cannot be ruled out. Plan for wound culture, start IV vancomycin and meropenem as above, wound care nurse consult. #7 CAD status post CABG and stents: Plan as above, continue Eliquis, statins, hold lisinopril and metoprolol because of low blood pressure. #8 type 2 diabetes mellitus: ADA diet, Accu-Cheks, insulin sliding scale, continue Lantus insulin, will check A1c. #9 hypertension: At this time, blood pressure is low, hold lisinopril and metoprolol, IV fluids, may need to start on IV vasopressors. #10 COPD/chronic respiratory failure: On home oxygen at the assisted. Plan for DuoNeb every 6 hours, albuterol as needed, incentive spirometer. #11 chronic atrial fibrillation: Rate is controlled, continue amiodarone for rate control, hold metoprolol, continue Eliquis. #12 DVT prophylaxis: Continue Eliquis. #13 CODE STATUS: DNR CCA, verified from documents from the assisted. This note was generated with [employer] software. It may contain incorrect words, spelling, and punctuation that were not noted in checking the note before signing. Code Visit Inpatient E&M: 74451 Subs Hosp L1
[2018-11-28 14:59] LABS: Reflex Lactate? Y
[2018-11-28] MEDS: 0.9% NaCl Peripheral Flush Adult/Peds IV ×2 (15:35→22:42)
[2018-11-28 16:08] LABS: International Normalized Ratio 2.1; Prothrombin Time (Protime)PT. 23.6 SECONDS (11.7-14.9)
--- NOTE | 2018-11-28 16:37 | NURSING ---
[address] [place] IRON CASTER present in pt room 1630 HR 69 R 15 SpO2 98% 2lnc BP 108/79 begin preparations 1635 HR 60 R 17 SpO2 100% 2lnc BP 76/68 NS at 100cc/hr, begin line placement 1640 HR 60 R 19 SpO2 100% 2lnc BP 83/19 MAP 41 1645 HR 63, R 18 SpO2 100% 2lnc BP 75/12 MAP 32 pt to [place], NS increased to 500cc/hr [address] Luis ramos.
--- NOTE | 2018-11-28 17:11 | SUR.OPER ---
Central line placement procedure note Indication: IV access/hemodynamic instability/vasoactive medications Procedure: A time-out was completed to verify correct patient, indication, medication allergies, procedure, coagulation studies, informed consent signed, and equipment needed. The patient was placed in the supine position for a central line placement to the left IJ vein. The patients left neck was prepped using 3 Betadine swabs and a full body sterile drape was applied. 1% lidocaine was used to anesthetize the surrounding skin. Unsuccessful at accessing the left IJ vein. No complications observed. Patient tolerated well. No estimated blood loss. Dr. Luis horvath.
--- NOTE | 2018-11-28 17:23 | PCM.RX.CS ---
Consult Pharmacy has been consulted to manage selected antiobiotic: Vancomycin Type of Consult: New start Suspected Infection: Skin/Soft tissue Labs: Sodium 136 mmol/L (136-145) 11/28/18 10:48 Potassium 5.1 mmol/L (3.5-5.1) 11/28/18 10:48 Chloride 98 mmol/L (98-107) 11/28/18 10:48 Carbon Dioxide 24.0 mmol/L (21.0-32.0) 11/28/18 10:48 Anion Gap 14 (5-15) 11/28/18 10:48 BUN 43 mg/dL (7-18) H 11/28/18 10:48 Creatinine 7.27 mg/dL (0.55-1.02) H 11/28/18 10:48 Est GFR (MDRD) Af Amer 7 mL/min (>60) L 11/28/18 10:48 Est GFR (MDRD) Non-Af 6 mL/min (>60) L 11/28/18 10:48 BUN/Creatinine Ratio 5.9 RATIO (10-20) L 11/28/18 10:48 Glucose 149 mg/dL (74-106) H 11/28/18 10:48 Microbiology: Microbiology 11/28/18 12:35 Stool C. difficile DNA Amplification - Final Weight used for dosin lb 2.876 oz Goal Trough: 15-20 mcg/mL Pharmacy Plan for Drug Dosing: Initial dose of 1250 mg ordered for 11/28 1800 Next dose will be entered after date/time of next dialysis is determined Pharmacy Service will continue to monitor and adjust dosing as required.
--- NOTE | 2018-11-28 18:08 | RAD_ITS ---
STUDY: X-RAY CHEST REASON FOR EXAM: Female, 78 years old. Right sided line placement TECHNIQUE: AP portable COMPARISON: None. FINDINGS: There is a small left pleural effusion and left lower lobe atelectasis.. Heart is enlarged. Normal mediastinum and samuel. Normal visualized pulmonary arteries. Normal visualized aortic arch and descending thoracic aorta. Postop change status post median sternotomy and CABG Normal visualized thoracic spine. Normal visualized ribs, clavicles, and shoulders. Pacer noted on the left with electrodes in satisfactory position and central line seen on the right with tip in the right atrium. There is a second central line on the left with tip in distal superior vena cava There is no demonstrated abnormality of the visualized soft tissue structures of the upper abdomen. RAD/CXR for Line Placement IMPRESSION: Small left pleural effusion and left lower lobe atelectasis. No evidence for pneumothorax status post central line placement Electronically Signed: Kevin Garzon MD at 19:10 EST , Service support ,
--- NOTE | 2018-11-28 18:20 | NURSING ---
Dr. Smith present in pt room, prep for line placement. 1800 LIJ TL placed, CXR complete.
--- NOTE | 2018-11-28 18:21 | PCM.CON.CC ---
Reason for Consult Date of Consultation: 11/28/18 Reason for Consultation: Septic vs Hypovolemic Shock History of Present Illness: The patient is a 78-year-old female, with a history as outlined below, who presented to the emergency department on November 28 after sustaining a fall at the patient's nursing facility. In addition, the patient reported the presence of abdominal pain, nausea, vomiting and diarrhea with onset approximately 24 hours prior to her presentation to the emergency department. The patient reported that when she fell that she fell directly backwards onto her bottom. She now complains of bilateral hip pain. The patient does report that in the days leading up to her hospitalization that her p.o. intake was poor. The patient has end-stage renal disease and receives hemodialysis on a Wednesday, Wednesday, Wednesday schedule. No addition, she reportedly wears 2 L/min of supplemental oxygen at her baseline and has a reported history of MARLA, for which she is supposed to utilize nocturnal noninvasive positive pressure ventilation. On presentation to the emergency department, the patient was noted to be afebrile and hypotensive. Laboratory evaluation revealed an elevated white blood cell count to 18,000. INR was noted to be 2.1. Chemistry profile was notable for a potassium of 5.1 with a creatinine of 7.27. Initial troponin was increased to 0.470. Initial lactate was increased to 4.8. Head CT revealed no acute intracranial pathology. Plain film chest x-ray revealed no evidence of acute consolidation or infiltrate. Pelvis x-ray revealed no acute findings. Although the patient received supplemental IV fluid hydration and the sepsis checklist was initiated in the emergency department, no antibiotics were ever administered. In addition, the patient remained hypotensive despite being volume resuscitated and was transferred to the medical intensive care unit with nothing more than a 22-gauge peripheral IV in the patient's thumb. On arrival to the medical intensive care unit, the patient appeared quite ill and remained hypotensive despite adequate volume resuscitation. She currently has a right-sided tunneled hemodialysis catheter in place. Due to an overall lack of IV access and the need to administer vasopressors, consent was obtained from the patient to place a triple-lumen catheter. Central Venous Catheter (CVC, Central Line) Placement Indication: Intravenous access Consent was obtained from: Patient A time-out was completed verifying correct patient, procedure, site, positioning, and special equipment if applicable. The patient was placed in a dependent position appropriate for central line placement based on the vein to be cannulated. The patient?s left neck was prepped and draped in sterile fashion. 1% Lidocaine was used to anesthetize the surrounding skin area. A triple lumen catheter was introduced into the the left IJ using the Seldinger technique under ultrasound guidance. The catheter was threaded smoothly over the guide wire and appropriate blood return was obtained. Each lumen of the catheter was evacuated of air and flushed with sterile saline. The catheter was then sutured in place to the skin and a sterile dressing applied. CXR revealed an appropriately positioned left IJ triple-lumen catheter. ULTRASOUND GUIDANCE STATEMENT (Vascular Access): I performed ultrasound image acquisition and interpretation for needle placement during this procedure. The vessel was identified and was found to be free of thrombosis by compression technique. A safe point of entry was marked at the skin and an angle for access was determined. The needle was guided by obtaining free flowing fluid and by real time visualization. Past Medical History Past Medical History (Chronic Problems): Chronic Problems (Last Updated 06/16/18 @ 10:57 by Arline Galindo) Hx of atrioventricular node ablation (Chronic 12/19/14) AV node RFA X2 noriega per report;Subsequent implant of single chamber ICD per Dr. Loya @ [facility], [place] longterm 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 (Chronic) Atherosclerotic heart disease of [place] coronary artery without angina pectoris (Chronic) Septal Myectomy and CABG X 2 with Left internal thoracic artery to the LAD, and reversed SVG of the PDA per Dr. Cheung @ [facility]. Also subsequent PCI's :PCI X 6 to RCA in 2013; PCI X 3 in 2014: reports not available but referenced in Dr. Saunders's office visit dated 05/24/2018 History of ventricular septal myectomy (Chronic 07/18/04) Septal Myectomy and CABG X 2 with Left internal thoracic artery to the LAD, and reversed SVG of the PDA per Dr. Cheung @ [facility] S/P CABG x 2 (Chronic 07/18/04) Septal Myectomy and CABG X 2 with Left internal thoracic artery to the LAD, and reversed SVG of the PDA per Dr. Cheung @ [facility] Hypertension (Chronic) Hyperlipidemia (Chronic) Type 2 diabetes mellitus (Chronic) COPD (chronic obstructive pulmonary disease) (Chronic) Chronic hypoxemic respiratory failure (Chronic) Atrial fibrillation (Chronic) 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 12/11/16) Initial single chamber ICD implant was 12/19/[address] Loya @ [facility] [place]. S/P EP/RFA; subsequent upgrade to combination pacer/ICD implant 12/11/16 [facility] VR [id number] End stage renal disease (Chronic) Diabetic neuropathy (Chronic) Peripheral vascular disease (Chronic) Venous insufficiency of both lower extremities (Chronic) Congestive heart failure (Chronic) History of PTCA (Chronic) PCI X 6 to RCA in 2013; PCI X 3 in 2014: reports not available but referenced in Dr. Saunders's office visit dated 05/24/2018 Medical History: Medical History (Last Reviewed 06/14/18 @ 10:42 by Arline Galindo) longterm 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 (Chronic) Z79.01 Atherosclerotic heart disease of [place] coronary artery without angina pectoris (Chronic) I25.10 Septal Myectomy and CABG X 2 with Left internal thoracic artery to the LAD, and reversed SVG of the PDA per Dr. Cheung @ [facility]. Also subsequent PCI's :PCI X 6 to RCA in 2013; PCI X 3 in 2014: reports not available but referenced in Dr. Saunders's office visit dated 05/24/2018 Hypertension (Chronic) I10 Hyperlipidemia (Chronic) E78.5 Type 2 diabetes mellitus (Chronic) E11.9 COPD (chronic obstructive pulmonary disease) (Chronic) J44.9 Chronic hypoxemic respiratory failure (Chronic) J96.11 Atrial fibrillation (Chronic) I48.91 End stage renal disease (Chronic) N18.6 Diabetic neuropathy (Chronic) E11.40 Peripheral vascular disease (Chronic) I73.9 Venous insufficiency of both lower extremities (Chronic) I87.2 Congestive heart failure (Chronic) I50.9 Allergies latex Allergy (Verified 11/12/18 16:07) Anaphylaxis meperidine [From Demerol] Allergy (Verified 11/12/18 16:07) Hives Penicillins Allergy (Verified 11/12/18 16:07) Hives Tetracyclines Allergy (Verified 11/12/18 16:07) Hives aspirin Adverse Reaction (Verified 11/12/18 16:07) Unknown atorvastatin Adverse Reaction (Verified 11/12/18 16:07) Unknown codeine Adverse Reaction (Verified 11/12/18 16:07) Unknown hydromorphone [From Dilaudid] Adverse Reaction (Verified 11/12/18 16:07) Unknown pentazocine Adverse Reaction (Verified 11/12/18 16:07) Unknown pioglitazone Adverse Reaction (Verified 11/12/18 16:07) Unknown propoxyphene Adverse Reaction (Verified 11/12/18 16:07) Unknown sulfamethoxazole [From Bactrim] Adverse Reaction (Verified 11/12/18 16:07) Unknown trimethoprim [From Bactrim] Adverse Reaction (Verified 11/12/18 16:07) Unknown chloroprep Allergy (Uncoded 11/12/18 16:07) Unknown Home Medications: Ambulatory Orders Medication Instructions Recorded Insulin Glargine,Hum.rec.anlog 16 unit SC SUTUTH 11/04/18 [Lantus] Metoclopramide [Reglan] 10 mg PO BID 11/04/18 Pregabalin [Lyrica] 25 mg PO DAILY 11/04/18 Apixaban [Eliquis] 5 mg PO BID 11/12/18 Lisinopril 2.5 mg PO DAILY 11/12/18 Metoprolol Succinate 25 mg PO DAILY 11/12/18 Rosuvastatin Calcium [Crestor] 20 mg PO QHS 11/12/18 Amiodarone HCl 200 mg PO DAILY 11/28/18 Diphenhydramine HCl 25 mg PO Q6H PRN PRN 11/28/18 Docusate Sodium [Colace] 100 mg PO BID PRN 11/28/18 Insulin Glargine,Hum.rec.anlog 24 unit SC MOWEFR 11/28/18 [Basaglar Kwikpen U-100] Loperamide HCl [Loperamide] 2 mg PO Q6H PRN PRN 11/28/18 Magnesium Hydroxide [Milk Of 30 ml PO DAILY PRN PRN 11/28/18 Magnesia] Miconazole 100 gm TP BID 11/28/18 Nut.tx.impaired Renal Fxn,Soy 240 ml PO BID 11/28/18 [Novasource Renal 2 Dre] Pantoprazole Sodium [Protonix] 40 mg PO DAILY 11/28/18 Pregabalin [Lyrica] 25 mg PO MOWEFR 11/28/18 traMADol [Ultram (G)] 50 mg PO Q8H PRN PRN 11/28/18 Surgical History: Surgical History (Last Updated 06/16/18 @ 10:57 by Arline Galindo) Hx of atrioventricular node ablation (Chronic) Onset Date: 12/19/14 Z98.890 AV node RFA X2 noriega per report;Subsequent implant of single chamber ICD per Dr. Loya @ [facility], [place] History of ventricular septal myectomy (Chronic) Onset Date: 07/18/04 Z98.890 Septal Myectomy and CABG X 2 with Left internal thoracic artery to the LAD, and reversed SVG of the PDA per Dr. Cheung @ [facility] S/P CABG x 2 (Chronic) Onset Date: 07/18/04 Z95.1 Septal Myectomy and CABG X 2 with Left internal thoracic artery to the LAD, and reversed SVG of the PDA per Dr. Cheung @ [facility] 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) Onset Date: 12/11/16 Z95.810 Initial single chamber ICD implant was 12/19/[address] Loya @ [facility] [place]. S/P EP/RFA; subsequent upgrade to combination pacer/ICD implant 12/11/16 [facility] VR [id number] Surgical History: angioplasty, cholecystectomy, coronary bypass surgery, hysterectomy, pacemaker implantation, - [employer] History: No pertinent [employer] history Lives: [place]-Way Smoking Status: Former smoker Alcohol: None Drugs: None - *Family History Maternal Family History: Family History (Last Updated 06/16/18 @ 10:47 by Arline Galindo) Unknown No problems noted. History Items: Hypertension Paternal Family History: Family History (Last Updated 06/16/18 @ 10:47 by Arline Galindo) Unknown No problems noted. History Items: Heart Disease Review of Systems Constitutional: Reports: Weakness, Fatigue Eyes: Denies: Blurred vision, Double vision HEENT: Denies: Head Aches, Sinus Congestion, Sinus Drainage Cardiovascular: Denies: Chest Pain, Light Headedness, Palpitations Respiratory: Denies: Pleuritic Pain, Shortness of Breath Gastrointestinal: Reports: Abdominal Pain, Diarrhea, Nausea, Vomiting Genitourinary: Denies: Dysuria Musculoskeletal: Reports: - - Hip pain Skin: Reports: - - Chronic lower extremity wounds Neurological: Denies: Numbness, Tingling, Focal weakness Psychiatric: Denies: Anxiety, Depression, Homicidal Ideations, Suicidal Ideations Hematologic/ Lymphatic: Denies: Easy Bruising, Easy Bleeding Objective: The patient's most recent lab work, culture data and imaging studies have all been personally reviewed. - Physical Exam General: Alert, Cooperative, - - Quite ill in appearance HEENT: Atraumatic, PERRLA, Normocephalic Oral: Dry Mucosa Neck: Supple, No Nodes, Trachea Midline, - - Left IJ triple-lumen catheter in place. Right-sided tunneled hemodialysis catheter in place Lungs: No rhonchi, No wheeze, No rales, Diminished Cardiovascular: Regular rate, Regular Rhythm, Normal S1, Normal S2, No murmurs Abdomen: Bowel Sounds Present, Soft, - - Diffuse tenderness to palpation without guarding, rebound or rigidity. Extremities: Cool, Diminished Peripheral Pulses, Edema, - - Chronic lower extremity venous stasis dermatitis along with small superficial ulcerations bilaterally Skin: - - As noted above. Musculoskeletal: No Muscle Wasting Lymphatic: No Cervical, Supraclavicular, or Inguinal Adenopathy Neurological: Cranial nerves II-XII grossly intact, Neuro grossly intact Psych/Mental Status: Flat Affect Vital Signs Temp Pulse Resp BP Pulse Ox 36.6 C 66 15 74/30 L 100 11/28/18 17:25 11/28/18 17:44 11/28/18 17:44 11/28/18 17:44 11/28/18 17:44 Oxygen Flow Rate (L/min) 2 Oxygen Delivery Method Nasal Cannula Weight: 200 lb 2.876 oz Body Mass Index (BMI) 30.4 Finger Stick Blood Glucose 126 Microbiology Past 72 Hours 11/28/18 12:35 C. difficile DNA Amplification - Final Stool Laboratory Tests Past 24 Hrs 11/28/18 11/28/18 11/28/18 10:48 10:48 10:48 WBC 17.9 H RBC 4.49 Hgb 14.4 Hct 45.4 MCV 101.1 H MCH 32.1 H MCHC 31.7 L RDW 14.6 RDW Differential 53.5 H Plt Count 160 MPV 10.0 Immature Gran % (Auto) 0.400 Neut % (Auto) 87.9 H Lymph % (Auto) 7.1 L [place] % (Auto) 4.2 Eos % (Auto) 0.2 Baso % (Auto) 0.2 Absolute Neuts (auto) 15.7 H Absolute Lymphs (auto) 1.28 Total Counted Not Reportable PT INR Sodium 136 Potassium 5.1 Chloride 98 Carbon Dioxide 24.0 Anion Gap 14 BUN 43 H Creatinine 7.27 H Estim Creat Clear Calc 6.54 Est GFR (MDRD) Af Amer 7 L Est GFR (MDRD) Non-Af 6 L BUN/Creatinine Ratio 5.9 L Glucose 149 H Lactic Acid 4.8 H* Calcium 8.9 Troponin I 0.470 H MRSA (PCR) 11/28/18 11/28/18 10:48 17:28 WBC RBC Hgb Hct MCV MCH MCHC RDW RDW Differential Plt Count MPV Immature Gran % (Auto) Neut % (Auto) Lymph % (Auto) [place] % (Auto) Eos % (Auto) Baso % (Auto) Absolute Neuts (auto) Absolute Lymphs (auto) Total Counted PT 23.6 H INR 2.1 Sodium Potassium Chloride Carbon Dioxide Anion Gap BUN Creatinine Estim Creat Clear Calc Est GFR (MDRD) Af Amer Est GFR (MDRD) Non-Af BUN/Creatinine Ratio Glucose Lactic Acid Calcium Troponin I MRSA (PCR) Pending Clinical Impression(s) from Imaging Studies Brain CT 11/28/18 10:21 IMPRESSION: Chronic involutional changes of the brain. Electronically Signed: Demario Jha DO at 12:53 EST Tel , Service support , Chest X-Ray 11/28/18 12:03 IMPRESSION: Blunting of the left costophrenic angle with findings suggestive of scarring at the left lung base. Electronically Signed: Antonio Pascual MD at 14:28 EST , Service support , Pelvis X-Ray 11/28/18 12:07 IMPRESSION: No acute findings Electronically Signed: Demario Jha DO at 12:41 EST Tel , Service support , Assessment/Plan RECOMMENDATIONS: 1. Start levophed and titrate to maintain a mean arterial pressure at or above 65 mmHg. 2. Start broad-spectrum antibiotics and initiate infectious workup. 3. Recheck serum lactate level. 4. Start daily p.o. Protonix. 5. Dose adjust Eliquis and discontinue Ultram. 6. Start antiemetics 7. Trend troponins 8. Check MRSA screen IMPRESSIONS: 1. Hypovolemic versus septic shock The patient initially presented to the emergency department with significant hypotension which was presumed to be secondary to hypovolemia. The patient received IV fluid resuscitation and was noted to have an elevated lactate level. In addition, she did have an elevated white blood cell count. While no antibiotics were initiated in the emergency department, I do feel that it is imperative given the patient's presentation to start antibiotics, while an infectious workup is being undertaken. In addition, the patient was transferred to the medical intensive care unit with significantly an adequate peripheral IV access. An emergent central line had to be placed in order to facilitate the administration of vasopressors. Recommend continuing Levophed to maintain a mean arterial pressure at or above 65 mmHg. Recheck serum lactate level. 2. Troponin elevation/history of coronary artery disease status post CABG/atrial fibrillation Potentially related to #1. We will continue to trend troponins for now. If continue to rise, will consider cardiology consultation and repeat echocardiogram. 3. End-stage renal disease on hemodialysis Continue hemodialysis per nephrology recommendations. Recommend that no fluid removal be considered at this time. 4. Advanced age/questionable history of COPD/diabetic neuropathy/peripheral vascular disease/hypertension/hyperlipidemia Complicates care, management, recovery and prognosis. Discontinue Lyrica and Ultram at the current time. 5. CODE STATUS Confirmed to be DNR CCA. TIME: 50 minutes of critical care time, inclusive of procedures, was spent addressing the patient's hypovolemic versus septic shock, troponin elevation, end-stage renal disease, review of all data and collaboration with the care team. ([id number]) Code Visit 9xxxx: [id number] Critical care first hour
[2018-11-28] MEDS: 0.9% NaCl IVPB Med Flush (250 mL) 15 ML IV (18:49)
[2018-11-28 18:50] LABS: M R Staph aureus DNA By PCR Negative (Negative); Probe Check PASS; Specimen Processing Control PASS
[2018-11-28 19:06] LABS: Lactic Acid 1.2 mmol/L (0.4-2.0)
[2018-11-28 19:39] LABS: Bedside Glucose 114 mg/dL (70-110)
[2018-11-28] MEDS: APIXABAN 5 MG TABLET PO (22:43)
[2018-11-28] MEDS: Metoclopramide 10 MG Tablet PO (22:44)
[2018-11-28] MEDS: Rosuvastatin 20 MG Tablet PO (22:48)
[2018-11-28 23:10] LABS: Bedside Glucose 124 mg/dL (70-110)
[2018-11-29] VITALS (79 sets, daily range): BP systolic 73–145; BP diastolic 14–98; PULSE 60–71; RESP 9–27; TEMP 36.9–38.6; O2SAT 83–100
--- NOTE | 2018-11-29 01:03 | NURSING ---
Spoke to nurse Bev at [facility] to clarify lantus order and lyrica order. She stated that she does not typically care for the patient but will have the dayshift nurse call in to clarify both order. Given direct extension to the ICU.
[2018-11-29] MEDS: 0.9% NaCl Peripheral Flush Adult/Peds IV ×3 (02:18→14:05)
[2018-11-29] MEDS: Acetaminophen 325 MG Tablet 650 MG PO (03:19)
[2018-11-29 04:14] LABS: Absolute Lymphocyte Count 0.96 X10^3/ul (0.83-4.51); Absolute Neutrophil Count 18.9 X10^3/uL (2.0-7.7); Basophil# 0.04 X10^3/uL; Basophil% 0.2 % (0-1); Hematocrit 36.8 % (37-47); Hemoglobin 11.5 g/dl (12.0-15.0); Lymphocyte # 0.96 X10^3/ul (4.0); Lymphocyte % 4.4 % (19-41); Mean Corp Hgb Conc 31.3 g/gl (32-36); Mean Corpuscular Hgb 31.6 pg (27.0-32.0); Mean Corpuscular Volume 101.1 fL (81-99); Mean Platelet Vol. 9.6 fl (6.2-12.0); Monocyte% 7.9 % (0-10); Neutrophil # 18.88 X10^3/uL (2.7-7.7); Neutrophil % 87.2 % (47-70); Platelet Count 187 K/mm3 (150-450); RBC Distribution Width CV 14.5 % (11.6-14.6); RBC Distribution Width SD 51.6 fl (35.1-43.9); Red Blood Count 3.64 M/mm3 (4.2-5.4); White Blood Count 21.6 K/mm3 (4.4-11.0)
[2018-11-29 04:17] LABS: Differential Indicated SCAN CRITERIA MET; POSITIVE COUNT NO; POSITIVE DIFFERENTIAL YES; POSITIVE MORPHOLOGY NO
[2018-11-29 04:38] LABS: Albumin, Serum 2.1 g/dL (3.2-5.0); BUN 47 mg/dL (7-18); BUN/Creat Ratio 7.1 RATIO (10-20); Creatinine, Serum 6.63 mg/dL (0.55-1.02); EST Glomerular Filtration Rate 6 mL/min (>60); Est Glom Filt Rate - Afr Amer 8 mL/min (>60); Estimated Creatinine Clearance 7.17 ml/min; Globulin 3.9 g/dL (2.2-4.2); Glucose 175 mg/dL (74-106)
[2018-11-29 04:39] LABS: ALB/GLOB Ratio 0.5 RATIO (0.9-2.4); AST(SGOT) 31 U/L (15-37); Alanine Aminotransfer ALT/SGPT 17 U/L (13-56); Alkaline Phosphatase 89 U/L (45-117); Anion Gap 13 (5-15); Calcium,Total 7.5 mg/dL (8.5-10.1); Chloride 106 mmol/L (98-107); Sodium Level 141 mmol/L (136-145)
--- NOTE | 2018-11-29 06:42 | PCM.PN.INT ---
Subjective: The patient was seen and examined at the bedside this morning. Events from the last 24 hours have been reviewed. The patient did spike a fever overnight and is currently afebrile. She remains on levophed, which is currently infusing at 30 mcg. She is currently overall net +4.9 L for the admission. Infectious workup is currently pending. The patient remains on antibiotics accordingly. Given that the nursing staff is having difficulty obtaining accurate blood pressures on the patient, consent was obtained to place an arterial line at the bedside this morning. The patient continues to report the presence of bilateral hip pain along with abdominal pain. Bedside Arterial Line A time-out was completed verifying correct patient, procedure, site, positioning, and special equipment if applicable. Alexis?s test was performed to ensure adequate perfusion. The patient?s left wrist was prepped and draped in sterile fashion. 1% Lidocaine was used to anesthetize the area. A 18G Arrow arterial line was introduced into the radial artery. The catheter was threaded over the guide wire and the needle was removed with appropriate pulsatile blood return. The catheter was then sutured in place to the skin and a sterile dressing applied. Perfusion to the extremity distal to the point of catheter insertion was checked and found to be adequate. ULTRASOUND GUIDANCE STATEMENT (Vascular Access): I performed ultrasound image acquisition and interpretation for needle placement during this procedure. The vessel was identified and was found to be free of thrombosis by compression technique. A safe point of entry was marked at the skin and an angle for access was determined. The needle was guided by obtaining free flowing fluid and by real time visualization. Objective: The patient's most recent lab work, culture data and imaging studies have all been personally reviewed. Blood and urine cultures are currently pending. Stool for occult blood was noted to be positive. C. difficile was negative. Enteric panel is currently pending. Surface echocardiogram from April 2018 revealed mild concentric LVH with an ejection fraction of 55%. Right ventricular systolic pressure was estimated to be 77 mmHg at that time. General: Alert, Cooperative, No apparent distress HEENT: Atraumatic, PERRLA, Normocephalic Oral: Dry Mucosa Neck: Supple, No Nodes, Trachea Midline, - - Right tunneled hemodialysis catheter in place. Left IJ triple-lumen catheter in place. Lungs: No rhonchi, No wheeze, No rales, Diminished Cardiovascular: Regular rate, Regular Rhythm, Normal S1, Normal S2, No murmurs Abdomen: Bowel Sounds Present, Soft, - - Nonfocal tenderness to palpation. Extremities: No clubbing, No cyanosis, Cool, Diminished Peripheral Pulses, Edema Skin: - - No significant change from previous. Musculoskeletal: No Muscle Wasting Lymphatic: No Cervical, Supraclavicular, or Inguinal Adenopathy Neurological: Cranial nerves II-XII grossly intact, Neuro grossly intact Psych/Mental Status: Flat Affect Vital Signs Temp Pulse Resp BP Pulse Ox 38.4 C H 64 21 H 99/31 L 92 11/29/18 06:25 11/29/18 06:25 11/29/18 06:25 11/29/18 06:25 11/29/18 06:25 Oxygen Flow Rate (L/min) 3 Oxygen Delivery Method Nasal Cannula Weight: 201 lb 15.095 oz Body Mass Index (BMI) 30.4 Finger Stick Blood Glucose 126 Intake and Output for Last 24 Hours 11/27/18 11/28/18 11/29/18 23:59 23:59 23:59 Intake Total 4079.2 / 4079.2 941 / 941 Output Total Balance 4067.2 / 4067.2 911 / 911 Labs (Last 48 Hours) 11/28/18 11/28/18 11/28/18 10:48 10:48 10:48 WBC 17.9 H RBC 4.49 Hgb 14.4 Hct 45.4 MCV 101.1 H MCH 32.1 H MCHC 31.7 L RDW 14.6 RDW Differential 53.5 H Plt Count 160 MPV 10.0 Immature Gran % (Auto) 0.400 Neut % (Auto) 87.9 H Lymph % (Auto) 7.1 L [place] % (Auto) 4.2 Eos % (Auto) 0.2 Baso % (Auto) 0.2 Absolute Neuts (auto) 15.7 H Absolute Lymphs (auto) 1.28 Total Counted Not Reportable Diff Path Review PT INR Sodium 136 Potassium 5.1 Chloride 98 Carbon Dioxide 24.0 Anion Gap 14 BUN 43 H Creatinine 7.27 H Estim Creat Clear Calc 6.54 Est GFR (MDRD) Af Amer 7 L Est GFR (MDRD) Non-Af 6 L BUN/Creatinine Ratio 5.9 L Glucose 149 H Lactic Acid 4.8 H* Calcium 8.9 Total Bilirubin AST ALT Alkaline Phosphatase Troponin I 0.470 H Total Protein Albumin Globulin Albumin/Globulin Ratio MRSA (PCR) POC Glucose 11/28/18 11/28/18 11/28/18 10:48 17:28 18:35 WBC RBC Hgb Hct MCV MCH MCHC RDW RDW Differential Plt Count MPV Immature Gran % (Auto) Neut % (Auto) Lymph % (Auto) [place] % (Auto) Eos % (Auto) Baso % (Auto) Absolute Neuts (auto) Absolute Lymphs (auto) Total Counted Diff Path Review PT 23.6 H INR 2.1 Sodium Potassium Chloride Carbon Dioxide Anion Gap BUN Creatinine Estim Creat Clear Calc Est GFR (MDRD) Af Amer Est GFR (MDRD) Non-Af BUN/Creatinine Ratio Glucose Lactic Acid 1.2 Calcium Total Bilirubin AST ALT Alkaline Phosphatase Troponin I Total Protein Albumin Globulin Albumin/Globulin Ratio MRSA (PCR) Negative POC Glucose 11/28/18 11/28/18 11/28/18 18:35 19:12 22:35 WBC RBC Hgb Hct MCV MCH MCHC RDW RDW Differential Plt Count MPV Immature Gran % (Auto) Neut % (Auto) Lymph % (Auto) [place] % (Auto) Eos % (Auto) Baso % (Auto) Absolute Neuts (auto) Absolute Lymphs (auto) Total Counted Diff Path Review PT INR Sodium Potassium Chloride Carbon Dioxide Anion Gap BUN Creatinine Estim Creat Clear Calc Est GFR (MDRD) Af Amer Est GFR (MDRD) Non-Af BUN/Creatinine Ratio Glucose Lactic Acid Calcium Total Bilirubin AST ALT Alkaline Phosphatase Troponin I 0.427 H 0.417 H Total Protein Albumin Globulin Albumin/Globulin Ratio MRSA (PCR) POC Glucose 114 H 11/28/18 11/29/18 11/29/18 22:40 00:35 03:40 WBC 21.6 H RBC 3.64 L Hgb 11.5 L Hct 36.8 L MCV 101.1 H MCH 31.6 MCHC 31.3 L RDW 14.5 RDW Differential 51.6 H Plt Count 187 MPV 9.6 Immature Gran % (Auto) 0.300 Neut % (Auto) 87.2 H Lymph % (Auto) 4.4 L [place] % (Auto) 7.9 Eos % (Auto) 0.0 Baso % (Auto) 0.2 Absolute Neuts (auto) 18.9 H Absolute Lymphs (auto) 0.96 Total Counted Not Reportable Diff Path Review May foll PT INR Sodium Potassium Chloride Carbon Dioxide Anion Gap BUN Creatinine Estim Creat Clear Calc Est GFR (MDRD) Af Amer Est GFR (MDRD) Non-Af BUN/Creatinine Ratio Glucose Lactic Acid Calcium Total Bilirubin AST ALT Alkaline Phosphatase Troponin I 0.412 H Total Protein Albumin Globulin Albumin/Globulin Ratio MRSA (PCR) POC Glucose 124 H 11/29/18 03:40 WBC RBC Hgb Hct MCV MCH MCHC RDW RDW Differential Plt Count MPV Immature Gran % (Auto) Neut % (Auto) Lymph % (Auto) [place] % (Auto) Eos % (Auto) Baso % (Auto) Absolute Neuts (auto) Absolute Lymphs (auto) Total Counted Diff Path Review PT INR Sodium 141 Potassium 5.0 Chloride 106 Carbon Dioxide 22.0 Anion Gap 13 BUN 47 H Creatinine 6.63 H Estim Creat Clear Calc 7.17 Est GFR (MDRD) Af Amer 8 L Est GFR (MDRD) Non-Af 6 L BUN/Creatinine Ratio 7.1 L Glucose 175 H Lactic Acid Calcium 7.5 L Total Bilirubin 0.60 AST 31 ALT 17 Alkaline Phosphatase 89 Troponin I Total Protein 6.0 L Albumin 2.1 L Globulin 3.9 Albumin/Globulin Ratio 0.5 L MRSA (PCR) POC Glucose Microbiology 11/28/18 12:35 Stool Stool Occult Blood (FIORELLA) - Final Occult Blood Positive 11/28/18 12:35 Stool C. difficile DNA Amplification - Final Clinical Impression(s) from Imaging Studies Brain CT 11/28/18 10:21 IMPRESSION: Chronic involutional changes of the brain. Electronically Signed: Demario Jha DO at 12:53 EST Tel , Service support , Chest X-Ray 11/28/18 12:03 IMPRESSION: Blunting of the left costophrenic angle with findings suggestive of scarring at the left lung base. Electronically Signed: Antonio Pascual MD at 14:28 EST , Service support , Pelvis X-Ray 11/28/18 12:07 IMPRESSION: No acute findings Electronically Signed: Demario AlmodovarDO sylvia at 12:41 EST Tel , Service support , Chest X-Ray 11/28/18 18:08 IMPRESSION: Small left pleural effusion and left lower lobe atelectasis. No evidence for pneumothorax status post central line placement Electronically Signed: Kevin Garzon MD at 19:10 EST , Service support , Medical Necessity - Tobacco Use Smoking Status: Former smoker Assessment/Plan RECOMMENDATIONS: 1. Continue Levophed and start vasopressin to maintain a mean arterial pressure at or above [address] arterial line. 3. Start hydrocortisone 50 mg every 6 hours. 4. Broaden antibiotics to include meropenem. 5. Obtain CT abdomen/pelvis with p.o. and IV contrast. 6. Provide additional IV fluid supplementation 7. Continue dose adjusted Eliquis IMPRESSIONS: 1. Septic shock with unclear source of infection The patient initially presented to the emergency department with significant hypotension which was presumed to be secondary to hypovolemia. The patient received IV fluid resuscitation and was noted to have an elevated lactate level. In addition, she did have an elevated white blood cell count. While no antibiotics were initiated in the emergency department, they were subsequently started upon arrival to the medical intensive care unit. Since that time, the patient's white blood cell count has increased and she is now febrile. The exact source of infection is still not known. However, she will be maintained on broad-spectrum antibiotics along with vasopressor support to maintain hemodynamic stability. In addition, she is going to be started on stress dose steroids as well. Given the patient's objective abdominal pain complaints, will obtain CT abdomen/pelvis this morning. 2. Troponin elevation/history of coronary artery disease status post CABG/atrial fibrillation Potentially related to #1. Most likely secondary to demand ischemia in the setting of #1. 3. End-stage renal disease on hemodialysis Continue hemodialysis per nephrology recommendations. Recommend that no fluid removal be considered at this time. 4. Questionable COPD of unknown severity/chronic hypoxemic respiratory failure/questionable obstructive sleep apnea The patient has a questionable history of COPD and reportedly utilizes 2 L/min of supplemental oxygen at her baseline. In addition, she has a possible history of obstructive sleep apnea for which she is supposed to utilize nocturnal CPAP therapy. 5. Advanced age/questionable history of COPD/diabetic neuropathy/peripheral vascular disease/hypertension/hyperlipidemia Complicates care, management, recovery and prognosis. The patient will require eventual evaluation by physical therapy, once medically stabilized. 6. CODE STATUS Confirmed to be DNR CCA with intubation. TIME: 45 minutes of critical care time, inclusive of procedures, was spent addressing the patient's hypovolemic versus septic shock, troponin elevation, end-stage renal disease, review of all data and collaboration with the care team. ([id number]) Code Visit 9xxxx: [id number] Critical care first hour
[2018-11-29] MEDS: Ondansetron 4 MG/2 ML Vial IV ×2 (06:47→10:08)
--- NOTE | 2018-11-29 07:09 | NURSING ---
0655:Dr. Smith present in room assessing patient for art line placement 0705: site cleansed and numbed with lidocaine 0710: left wrist arterial line placed with ultrasound 0712: connected to pressure bag and flushed without complications' 0715: arterial line sutured in place and CHG dressing applied
[2018-11-29] MEDS: Lactated Ringers 1,000 ML 999 ML IV (07:27)
--- NOTE | 2018-11-29 07:35 | PN_ITS ---
Subjective: Patient is a 78-year-old lady with multiple comorbidities including end-stage renal disease on dialysis presented to the emergency department apparently following a fall without loss of consciousness. Patient was found to be hypotensive on arrival and assessment of septic shock without etiology made admitted to the intensive care unit for resuscitation Objective: GENERAL: Lethargic but arousable HEENT: Atraumatic; moist oral mucosa EYES; Anicteric, Normal Conjunctiva NECK; supple, normal thyroid, RESPIRATORY: Diminished to auscultation bilaterally, CARDIOVASCULAR: Regular S1 S2, no audible murmurs GI: soft, non-tender, normoactive bowel sounds, : No Renal angle tenderness; EXTREMITIES: Cool to touch. MUSCULOSKELETAL: No Joint Tenderness; NEURO: Awake; no lateralizing signs. SKIN: Stasis dermatitis involving both lower extremities PSYCH; flat affect Vitals/I&O's: Vital Signs Temp Pulse Resp BP Pulse Ox 100.8 F H 64 9 L 97/18 L 100 11/29/18 07:15 11/29/18 07:15 11/29/18 07:15 11/29/18 07:15 11/29/18 07:15 Oxygen Flow Rate (L/min) 2 Oxygen Delivery Method Nasal Cannula Weight: 91.6 kg Body Mass Index (BMI) 30.4 Finger Stick Blood Glucose 126 Intake and Output for Last 24 Hours 11/27/18 11/28/18 11/29/18 23:59 23:59 23:59 Intake Total 4079.2 / 4079.2 941 / 941 Output Total 30 / 30 Balance 4067.2 / 4067.2 911 / 911 Microbiology Past 72 Hours 11/28/18 12:35 Stool Stool Occult Blood (FIORELLA) - Final Occult Blood Positive 11/28/18 12:35 Stool C. difficile DNA Amplification - Final Laboratory Results 11/28/18 10:48: WBC 17.9 H, RBC 4.49, Hgb 14.4, Hct 45.4, MCV 101.1 H, MCH 32.1 H, MCHC 31.7 L, RDW 14.6, RDW Differential 53.5 H, Plt Count 160, MPV 10.0, Immature Gran % (Auto) 0.400, Neut % (Auto) 87.9 H, Lymph % (Auto) 7.1 L, Lee % (Auto) 4.2, Eos % (Auto) 0.2, Baso % (Auto) 0.2, Absolute Neuts (auto) 15.7 H, Absolute Lymphs (auto) 1.28, Total Counted Not Reportable 11/28/18 10:48: Sodium 136, Potassium 5.1, Chloride 98, Carbon Dioxide 24.0, Anion Gap 14, BUN 43 H, Creatinine 7.27 H, Estim Creat Clear Calc 6.54, Est GFR (MDRD) Af Amer 7 L, Est GFR (MDRD) Non-Af 6 L, BUN/Creatinine Ratio 5.9 L, Glucose 149 H, Calcium 8.9, Troponin I 0.470 H 11/28/18 10:48: Lactic Acid 4.8 H* 11/28/18 10:48: PT 23.6 H, INR 2.1 11/28/18 17:28: MRSA (PCR) Negative 11/28/18 18:35: Lactic Acid 1.2 11/28/18 18:35: Troponin I 0.427 H 11/28/18 19:12: POC Glucose 114 H 11/28/18 22:35: Troponin I 0.417 H 11/28/18 22:40: POC Glucose 124 H 11/29/18 00:35: Troponin I 0.412 H 11/29/18 03:40: WBC 21.6 H, RBC 3.64 L, Hgb 11.5 L, Hct 36.8 L, MCV 101.1 H, MCH 31.6, MCHC 31.3 L, RDW 14.5, RDW Differential 51.6 H, Plt Count 187, MPV 9.6, Immature Gran % (Auto) 0.300, Neut % (Auto) 87.2 H, Lymph % (Auto) 4.4 L, [place] % (Auto) 7.9, Eos % (Auto) 0.0, Baso % (Auto) 0.2, Absolute Neuts (auto) 18.9 H, Absolute Lymphs (auto) 0.96, Total Counted Not Reportable, Diff Path Review February11/29/18 03:40: Sodium 141, Potassium 5.0, Chloride 106, Carbon Dioxide 22.0, Anion Gap 13, BUN 47 H, Creatinine 6.63 H, Estim Creat Clear Calc 7.17, Est GFR (MDRD) Af Amer 8 L, Est GFR (MDRD) Non-Af 6 L, BUN/Creatinine Ratio 7.1 L, Glucose 175 H, Calcium 7.5 L, Total Bilirubin 0.60, AST 31, ALT 17, Alkaline Phosphatase 89, Total Protein 6.0 L, Albumin 2.1 L, Globulin 3.9, Albumin/Globulin Ratio 0.5 L Current Medications Acetaminophen (Tylenol) 650 mg PO Q6H PRN PRN PRN Reason: fever >100.4 Last Admin: 11/29/18 03:19 Dose: 650 mg Amiodarone HCl (Cordarone) 200 mg PO DAILY [facility] Apixaban (Eliquis) 5 mg PO BID [facility] Last Admin: 11/28/18 22:43 Dose: 5 mg Enteral Nutritional Formula (Glucerna 1.5) 240 ml PO BID [facility] Last Admin: 11/28/18 22:44 Dose: Not Given Sodium Chloride () 250 mls @ 15 mls/hr IV .[id number] PRN PRN Reason: SALINE FLUSH Last Admin: 11/28/18 18:49 Dose: 15 mls/hr Cefepime HCl 0.5 gm/ Sodium (Chloride) 50 mls @ 100 mls/hr IV Q24H [facility] Last Admin: 11/28/18 22:27 Dose: 100 mls/hr Vancomycin IV Pharmacy to Dose (1 ea/ Sodium Chloride) 500 mls @ 250 mls/hr IV X1 PRN; Protocol PRN Reason: Rx to Dose Norepinephrine Bitartrate 8 mg (/ Dextrose) 258 mls @ 9.68 mls/hr IV .[id number] [facility] Last Admin: 11/29/18 02:18 Dose: 9.68 mls/hr Lactated Ringer's () 1,000 mls @ 999 mls/hr IV .Q1H1M [facility] Stop: 11/29/18 08:20 Last Admin: 11/29/18 07:27 Dose: 999 mls/hr Vasopressin 40 units/ Sodium (Chloride) 52 mls @ 3.12 mls/hr IV .[id number] [facility] Insulin Glargine (Lantus (Bk)) 24 units SC MoWeFr@1000 [facility] Insulin Glargine (Lantus (Bk)) 16 units SC SuTuTh@1000 [facility] Insulin Human Lispro (Humalog Kwikpen ([facility])) 0 unit SC ACHS [facility]; Protocol Last Admin: 11/28/18 22:44 Dose: Not Given Metoclopramide HCl (Reglan) 10 mg PO BID [facility] Last Admin: 11/28/18 22:44 Dose: 10 mg Ondansetron HCl (Zofran) 4 mg IV Q6H PRN PRN PRN Reason: NAUSEA/VOMITING Last Admin: 11/29/18 06:47 Dose: 4 mg Pantoprazole Sodium (Protonix) 40 mg PO DAILY [facility] Pregabalin (Lyrica) 25 mg PO DAILY [facility] Pregabalin (Lyrica) 25 mg PO MOWEFR [facility] Rosuvastatin Calcium (Crestor) 20 mg PO QHS [facility] Last Admin: 11/28/18 22:48 Dose: 20 mg Sodium Chloride () 5 - 15 ml IV UD PRN PRN Reason: SALINE FLUSH Last Admin: 11/29/18 03:38 Dose: 15 ml Tramadol HCl (Ultram) 50 mg PO Q12H PRN PRN Reason: PAIN Medical Necessity - Tobacco Use Smoking Status: Former smoker Assessment/Plan Patient is a 78-year-old lady with multiple comorbidities including end-stage renal disease on dialysis presented to the emergency department apparently following a fall without loss of consciousness. Patient was found to be hypotensive on arrival and assessment of septic shock without etiology made admitted to the intensive care unit for resuscitation 1. Septic shock of undetermined etiology patient remains on broad-spectrum antibiotic therapy with cefepime as well as vancomycin in addition to norepinephrine titrated to keep map greater than 65. Patient cultures obtained on admission have so far remained negative to date. Stool for C. difficile pending. Chest x-ray obtained on admission demonstrated Blunting of the left costophrenic angle with findings suggestive of scarring at the left lung base. Consider CT of the abdomen and pelvis with contrast once patient is hemodynamically stable 2. End-stage renal disease on hemodialysis on ,W,F 3. Hypertension antihypertensives on hold in view of patient presenting with septic shock 4. Diabetes mellitus type 2 oral agents held please and Accu-Cheks before meals and at bedtime with sliding scale coverage into continuation of patient long- acting insulin 5. Paroxysmal atrial fibrillation patient is on amiodarone for rate control as well as systemic anticoagulation with Eliquis 2. CAD with previous 9 stent placement 7. Ischemic cardiomyopathy status post AICD placement 8. Dyslipidemia-patient is on statin therapy, continued at home dose 9. Chronic hypoxic respiratory failure patient is on baseline home O2 at his ECF 10. Elevated troponin secondary to demand ischemia 11. DVT prophylaxis on Eliquis Active Medications Acetaminophen (Tylenol) 650 mg PO Q6H PRN PRN PRN Reason: fever >100.4 Last Admin: 11/29/18 03:19 Dose: 650 mg Amiodarone HCl (Cordarone) 200 mg PO DAILY [facility] Apixaban (Eliquis) 5 mg PO BID [facility] Last Admin: 11/28/18 22:43 Dose: 5 mg Enteral Nutritional Formula (Glucerna 1.5) 240 ml PO BID [facility] Last Admin: 11/28/18 22:44 Dose: Not Given Sodium Chloride () 250 mls @ 15 mls/hr IV .[id number] PRN PRN Reason: SALINE FLUSH Last Admin: 11/28/18 18:49 Dose: 15 mls/hr Cefepime HCl 0.5 gm/ Sodium (Chloride) 50 mls @ 100 mls/hr IV Q24H [facility] Last Admin: 11/28/18 22:27 Dose: 100 mls/hr Vancomycin IV Pharmacy to Dose (1 ea/ Sodium Chloride) 500 mls @ 250 mls/hr IV X1 PRN; Protocol PRN Reason: Rx to Dose Norepinephrine Bitartrate 8 mg (/ Dextrose) 258 mls @ 9.68 mls/hr IV .[id number] [facility] Last Admin: 11/29/18 02:18 Dose: 9.68 mls/hr Lactated Ringer's () 1,000 mls @ 999 mls/hr IV .Q1H1M [facility] Stop: 11/29/18 08:20 Last Admin: 11/29/18 07:27 Dose: 999 mls/hr Vasopressin 40 units/ Sodium (Chloride) 52 mls @ 3.12 mls/hr IV .[id number] [facility] Insulin Glargine (Lantus (Bkc)) 24 units SC MoWeFr@1000 [facility] Insulin Glargine (Lantus (Bkc)) 16 units SC SuTuTh@1000 [facility] Insulin Human Lispro (Humalog Kwikpen ([facility])) 0 unit SC ACHS [facility]; Protocol Last Admin: 11/28/18 22:44 Dose: Not Given Metoclopramide HCl (Reglan) 10 mg PO BID [facility] Last Admin: 11/28/18 22:44 Dose: 10 mg Ondansetron HCl (Zofran) 4 mg IV Q6H PRN PRN PRN Reason: NAUSEA/VOMITING Last Admin: 11/29/18 06:47 Dose: 4 mg Pantoprazole Sodium (Protonix) 40 mg PO DAILY [facility] Pregabalin (Lyrica) 25 mg PO DAILY [facility] Pregabalin (Lyrica) 25 mg PO MOWEFR [facility] Rosuvastatin Calcium (Crestor) 20 mg PO QHS [facility] Last Admin: 11/28/18 22:48 Dose: 20 mg Sodium Chloride () 5 - 15 ml IV UD PRN PRN Reason: SALINE FLUSH Last Admin: 11/29/18 03:38 Dose: 15 ml Tramadol HCl (Ultram) 50 mg PO Q12H PRN PRN Reason: PAIN Clinical Impression(s) from Imaging Studies Brain CT 11/28/18 10:21 IMPRESSION: Chronic involutional changes of the brain. Electronically Signed: Demario Jha DO at 12:53 EST Tel , Service support , Chest X-Ray 11/28/18 12:03 IMPRESSION: Blunting of the left costophrenic angle with findings suggestive of scarring at the left lung base. Electronically Signed: Antonio Pascual MD at 14:28 EST , Service support , Pelvis X-Ray 11/28/18 12:07 IMPRESSION: No acute findings Electronically Signed: Demairo Jha DO at 12:41 EST Tel , Service support , Chest X-Ray 11/28/18 18:08 IMPRESSION: Small left pleural effusion and left lower lobe atelectasis. No evidence for pneumothorax status post central line placement Electronically Signed: Kevin Garzon MD at 19:10 EST , Service support , Code Visit Inpatient E&M: 68415 Subs Hosp L3
[2018-11-29] MEDS: Insulin Lispro 100 UNIT/ML INSULN.PEN SC ×3 (08:00→17:05)
--- NOTE | 2018-11-29 08:50 | CT_ITS ---
STUDY: CT ABDOMEN AND PELVIS WITH CONTRAST REASON FOR EXAM: Female, 78 years old. Septic shock and diarrhea RADIATION DOSAGE (If Supplied By Facility): CTDIvol = ( 27.00 ) mGy, DLP = ( 1357.34 ) mGycm TECHNIQUE: Transaxial images were obtained from the dome of the diaphragm to the symphysis pubis without oral contrast. 100 ml of Isovue 300 contrast was administered. Sagittal and coronal images were reconstructed. Individualized dose optimization techniques were used for this CT. COMPARISON: None. FINDINGS: There is mild compressive atelectasis in both lower lobes and tiny effusions. There is calcific pleural plaquing at the left lung base. The heart is enlarged and there is multivessel coronary artery disease.. Normal liver. Gallbladder has been removed surgically. Normal spleen. Normal pancreas. Normal bilateral adrenal glands. Normal right kidney. Normal left kidney. Normal visualized stomach. Normal small intestine. Diverticular changes are seen within the descending and sigmoid colon. There is diffuse loss of haustral markings and very minor thickening of the olivares or bowel of the descending colon with stranding in the fat and a trace of fluid within the paracolic gutter extending into the pelvis consistent with acute nonspecific inflammatory bowel disease. The appendix is visualized and appears normal. Atherosclerotic changes of the aorta without evidence for aneurysm. Normal inferior vena cava. Normal retroperitoneum. Incompletely distended thick-walled bladder likely of no significance. Normal abdominal wall. Lumbar spine demonstrates mild spondylosis CT/Abdomen/Pelvis WITH Contrast IMPRESSION: Nonspecific acute inflammatory bowel disease involving the descending colon with trace of free fluid in the paracolic gutter and pelvis There are also diverticular changes within the descending and sigmoid colon however due to the length of the involved segment of inflamed bowel diverticulitis is less likely to be etiology. Electronically Signed: Kevin Garzon MD at 16:57 EST , Service support ,
[2018-11-29 09:21] LABS: Bedside Glucose 152 mg/dL (70-110)
--- NOTE | 2018-11-29 09:25 | CASEMGMT ---
Addendum entered by Rebecca Arnett 11/29/18 10:14: DWAYNE called patient's daughter, Pratima and verified the plan is for patient to return to [place] at d/c. Rebecca HASSAN Original Note: Addendum entered by Rebecca Arnett 11/29/18 10:12: DWAYNE faxed updates to [place]. Rebecca HASSAN Original Note: Patient is from [place] at [facility]. SW to follow. Rebecca MARINELLI MSW
[2018-11-29] MEDS: Hydrocortisone Sod Succinate 100 MG/2 ML Vial 50 MG IV ×3 (09:58→18:16)
--- NOTE | 2018-11-29 11:59 | NURSING ---
wound photo: left 4th toe
--- NOTE | 2018-11-29 11:59 | NURSING ---
skin photo: bilateral lower legs
[2018-11-29 12:20] LABS: Bedside Glucose 189 mg/dL (70-110)
--- NOTE | 2018-11-29 12:30 | NURSING ---
to CT, on monitorj, APPLIED COMPUTER SCIENCE PROFESSOR in attendance
--- NOTE | 2018-11-29 13:01 | PCM.CONS.R ---
Problem List (1) End stage renal disease Status: Chronic Consultation - Renal PCP/ Referring MD: Requesting physician: [] Primary care physician: Mook Rain MD - History of Present Illness History of Present Illness: The patient is a 78 year old F past medical history of end-stage renal disease on Wednesday , coronary disease status post CABG twice , hypertension , diabetes , hyperlipidemia . Patient was [facility] in [facility] from senior living due to frequent falls . Patient has been having diarrhea for the last day or so along with nausea and some abdominal pain . In the ED , she was found to have low blood pressure . Patient was admitted to the ICU with hypovolemic and septic shock . Patient presented with high white cell count . Blood culture and urine culture were obtained . Currently the patient on 2 blood pressure pressor . Patient did not have hemodialysis session yesterday . Her breathing is stable . Potassium was within normal limits today . Patient has right IJ tunneled catheter for dialysis . Patient said her diarrhea is better . Patient was given a bolus today 1 L . She received 4 L of IV fluid yesterday . Nausea is better . She got 2 doses of Zofran today . Review of system : 12 system review is negative except what mentioned HPI [] - Allergies Allergies: Allergies latex Allergy (Verified 11/12/18 16:07) Anaphylaxis meperidine [From Demerol] Allergy (Verified 11/12/18 16:07) Hives Penicillins Allergy (Verified 11/12/18 16:07) Hives Tetracyclines Allergy (Verified 11/12/18 16:07) Hives aspirin Adverse Reaction (Verified 11/12/18 16:07) Unknown atorvastatin Adverse Reaction (Verified 11/12/18 16:07) Unknown codeine Adverse Reaction (Verified 11/12/18 16:07) Unknown hydromorphone [From Dilaudid] Adverse Reaction (Verified 11/12/18 16:07) Unknown pentazocine Adverse Reaction (Verified 11/12/18 16:07) Unknown pioglitazone Adverse Reaction (Verified 11/12/18 16:07) Unknown propoxyphene Adverse Reaction (Verified 11/12/18 16:07) Unknown sulfamethoxazole [From Bactrim] Adverse Reaction (Verified 11/12/18 16:07) Unknown trimethoprim [From Bactrim] Adverse Reaction (Verified 11/12/18 16:07) Unknown chloroprep Allergy (Uncoded 11/12/18 16:07) Unknown - Current Medications Current Medications: Current Medications Acetaminophen (Tylenol) 650 mg PO Q6H PRN PRN PRN Reason: fever >100.4 Last Admin: 11/29/18 03:19 Dose: 650 mg Amiodarone HCl (Cordarone) 200 mg PO DAILY [facility] Apixaban (Eliquis) 2.5 mg PO BID [facility] Hydrocortisone Sodium Succinate (Solu-Cortef) 50 mg IV Q6 [facility] Last Admin: 11/29/18 09:58 Dose: 50 mg Sodium Chloride () 250 mls @ 15 mls/hr IV .[id number] PRN PRN Reason: SALINE FLUSH Last Admin: 11/28/18 18:49 Dose: 15 mls/hr Norepinephrine Bitartrate 8 mg (/ Dextrose) 258 mls @ 9.68 mls/hr IV .[id number] [facility] Last Admin: 11/29/18 08:01 Dose: 9.68 mls/hr Vasopressin 40 units/ Sodium (Chloride) 52 mls @ 3.12 mls/hr IV .[id number] [facility] Last Admin: 11/29/18 07:47 Dose: 3.12 mls/hr Meropenem 500 mg/ Sodium (Chloride) 60 mls @ 100 mls/hr IV Q24H [facility] Insulin Glargine (Lantus (Bkc)) 24 units SC MoWeFr@1000 [facility] Insulin Glargine (Lantus (Bkc)) 16 units SC SuTuTh@1000 [facility] Last Admin: 11/29/18 11:50 Dose: 16 units Insulin Human Lispro (Humalog Kwikpen (Bkc)) 0 unit SC ACHS [facility]; Protocol Last Admin: 11/29/18 11:50 Dose: 1 units Lactic Acid (Lac-Hydrin, Amlactin) 1 applic TOPICAL BID [facility]; Protocol Metoclopramide HCl (Reglan) 10 mg PO BID [facility] Last Admin: 11/28/18 22:44 Dose: 10 mg Ondansetron HCl (Zofran) 4 mg IV Q6H PRN PRN PRN Reason: NAUSEA/VOMITING Last Admin: 11/29/18 10:08 Dose: 4 mg Pantoprazole Sodium (Protonix) 40 mg PO DAILY [facility] Sodium Chloride () 5 - 15 ml IV UD PRN PRN Reason: SALINE FLUSH Last Admin: 11/29/18 03:38 Dose: 15 ml - Past Medical History Past Medical History (Chronic Problems): Chronic Problems (Last Updated 06/16/18 @ 10:57 by Arline Galindo) Hx of atrioventricular node ablation (Chronic 12/19/14) AV node RFA X2 noriega per report;Subsequent implant of single chamber ICD 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 Cheung @ [facility]. Also subsequent PCI's :PCI X 6 to RCA in 2013; PCI X 3 in 2014: reports not available but referenced in Dr. Saunders's office visit dated 05/24/2018 History of ventricular septal myectomy (Chronic 07/18/04) Septal Myectomy and CABG X 2 with Left internal thoracic artery to the LAD, and reversed SVG of the PDA per Dr. Cheung @ [facility] S/P CABG x 2 (Chronic 07/18/04) Septal Myectomy and CABG X 2 with Left internal thoracic artery to the LAD, and reversed SVG of the PDA per Dr. Cheung @ [facility] Hypertension (Chronic) Hyperlipidemia (Chronic) Type 2 diabetes mellitus (Chronic) COPD (chronic obstructive pulmonary disease) (Chronic) Chronic hypoxemic respiratory failure (Chronic) Atrial fibrillation (Chronic) 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 12/11/16) Initial single chamber ICD implant was 12/19/[address] Loya @ [facility] [place]. S/P EP/RFA; subsequent upgrade to combination pacer/ICD implant 12/11/16 [employer] VR [id number] End stage renal disease (Chronic) Diabetic neuropathy (Chronic) Peripheral vascular disease (Chronic) Venous insufficiency of both lower extremities (Chronic) Congestive heart failure (Chronic) History of PTCA (Chronic) PCI X 6 to RCA in 2013; PCI X 3 in 2014: reports not available but referenced in Dr. Saunders's office visit dated 05/24/2018 - Past Surgical History Surgical History: angioplasty, cholecystectomy, coronary bypass surgery, hysterectomy, pacemaker implantation, - - Social History Smoking Status: Former smoker Alcohol: None Drugs: None - Family History Maternal Family History: Family History (Last Updated 06/16/18 @ 10:47 by Arline Galindo) Unknown No problems noted. History Items: Hypertension Paternal Family History: Family History (Last Updated 06/16/18 @ 10:47 by Arline Galindo) Unknown No problems noted. History Items: Heart Disease - Physical Exam General: Alert, Oriented x3 HEENT: Atraumatic Neck: Supple, No JVD Lungs: Clear to auscultation, Normal air movement Cardiovascular: Irregular Rate Abdomen: Bowel Sounds Present, Soft, - - Slight tenderness over the abdomen Extremities: No clubbing, No cyanosis, Edema - 2 edema of lower extremities Musculoskeletal: No Tenderness to Palpation of Joints or Extremities Neurological: Cranial nerves II-XII grossly intact, Neuro grossly intact Psych/Mental Status: Normal Affect Vital Signs Temp Pulse Resp BP Pulse Ox 100.8 F H 64 9 L 97/18 L 100 11/29/18 07:15 11/29/18 07:15 11/29/18 07:15 11/29/18 07:15 11/29/18 07:15 Oxygen Flow Rate (L/min) 3 Oxygen Delivery Method Nasal Cannula Weight: 91.6 kg Body Mass Index (BMI) 30.4 Finger Stick Blood Glucose 126 Intake and Output for Last 24 Hours 11/27/18 11/28/18 11/29/18 23:59 23:59 23:59 Intake Total 4079.2 / 4079.2 2916 / 2916 Output Total 60 / 60 Balance 4067.2 / 4067.2 2856 / 2856 Microbiology Past 72 Hours 11/28/18 12:35 Stool Occult Blood (FIORELLA) - Final Stool Occult Blood Positive 11/28/18 12:35 C. difficile DNA Amplification - Final Stool Laboratory Tests Past 24 Hrs 11/28/18 11/28/18 11/28/18 10:48 17:28 18:35 WBC RBC Hgb Hct MCV MCH MCHC RDW RDW Differential Plt Count MPV Immature Gran % (Auto) Neut % (Auto) Lymph % (Auto) [place] % (Auto) Eos % (Auto) Baso % (Auto) Absolute Neuts (auto) Absolute Lymphs (auto) Total Counted Diff Path Review PT 23.6 H INR 2.1 Sodium Potassium Chloride Carbon Dioxide Anion Gap BUN Creatinine Estim Creat Clear Calc Est GFR (MDRD) Af Amer Est GFR (MDRD) Non-Af BUN/Creatinine Ratio Glucose Lactic Acid 1.2 Calcium Total Bilirubin AST ALT Alkaline Phosphatase Troponin I Total Protein Albumin Globulin Albumin/Globulin Ratio MRSA (PCR) Negative 11/28/18 11/28/18 11/29/18 18:35 22:35 00:35 WBC RBC Hgb Hct MCV MCH MCHC RDW RDW Differential Plt Count MPV Immature Gran % (Auto) Neut % (Auto) Lymph % (Auto) [place] % (Auto) Eos % (Auto) Baso % (Auto) Absolute Neuts (auto) Absolute Lymphs (auto) Total Counted Diff Path Review PT INR Sodium Potassium Chloride Carbon Dioxide Anion Gap BUN Creatinine Estim Creat Clear Calc Est GFR (MDRD) Af Amer Est GFR (MDRD) Non-Af BUN/Creatinine Ratio Glucose Lactic Acid Calcium Total Bilirubin AST ALT Alkaline Phosphatase Troponin I 0.427 H 0.417 H 0.412 H Total Protein Albumin Globulin Albumin/Globulin Ratio MRSA (PCR) 11/29/18 11/29/18 03:40 03:40 WBC 21.6 H RBC 3.64 L Hgb 11.5 L Hct 36.8 L MCV 101.1 H MCH 31.6 MCHC 31.3 L RDW 14.5 RDW Differential 51.6 H Plt Count 187 MPV 9.6 Immature Gran % (Auto) 0.300 Neut % (Auto) 87.2 H Lymph % (Auto) 4.4 L [place] % (Auto) 7.9 Eos % (Auto) 0.0 Baso % (Auto) 0.2 Absolute Neuts (auto) 18.9 H Absolute Lymphs (auto) 0.96 Total Counted Not Reportable Diff Path Review May foll PT INR Sodium 141 Potassium 5.0 Chloride 106 Carbon Dioxide 22.0 Anion Gap 13 BUN 47 H Creatinine 6.63 H Estim Creat Clear Calc 7.17 Est GFR (MDRD) Af Amer 8 L Est GFR (MDRD) Non-Af 6 L BUN/Creatinine Ratio 7.1 L Glucose 175 H Lactic Acid Calcium 7.5 L Total Bilirubin 0.60 AST 31 ALT 17 Alkaline Phosphatase 89 Troponin I Total Protein 6.0 L Albumin 2.1 L Globulin 3.9 Albumin/Globulin Ratio 0.5 L MRSA (PCR) POC Glucose 11/29/18 11/29/18 11/28/18 11:43 07:51 22:40 POC Glucose 189 H 152 H 124 H 11/28/18 19:12 POC Glucose 114 H Assessment/Plan 1-stage renal disease on Wednesday hemodialysis schedule. Last hemodialysis session was on November 25. And hemodialysis access is right IJ tunneled catheter. No need for urgent dialysis today. No fluid overload. No hyperkalemia. Stable respiratory status. I will arrange for dialysis tomorrow. 2-hemodynamic shock most related to sepsis and hypovolemia. Hemodynamic support as per the ICU. Antibiotics as per ID service. Follow blood and urine culture. Sepsis source still unclear. 3-anemia: Hemoglobin more than 11. No need for WILLY for now. Check hemoglobin in the morning. Renal team will continue to follow Please call with any question or concern. Jonna Martin MD [phone]
--- NOTE | 2018-11-29 13:05 | CON.PCM_ITS ---
Problem List (1) End stage renal disease Status: Chronic Consultation - Renal PCP/ Referring MD: Requesting physician: [] Primary care physician: Mook Rain MD - History of Present Illness History of Present Illness: The patient is a 78 year old F past medical history of end-stage renal disease on Wednesday , coronary disease status post CABG twice , hypertension , diabetes , hyperlipidemia . Patient was brought in to [facility] from [place] [facility] due to frequent falls . Patient has been having diarrhea for the last day or so along with nausea and some abdominal pain . In the ED , she was found to have low blood pressure . Patient was admitted to the ICU with hypovolemic and septic shock . Patient presented with high white cell count . Blood culture and urine culture were obtained . Currently the patient on 2 blood pressure pressor . Patient did not have hemodialysis session yesterday . Her breathing is stable . Potassium was within normal limits today . Patient has right IJ tunneled catheter for dialysis . Patient said her diarrhea is better . Patient was given a bolus today 1 L . She received 4 L of IV fluid yesterday . Nausea is better . She got 2 doses of Zofran today . Review of system : 12 system review is negative except what mentioned HPI [] - Allergies Allergies: Allergies latex Allergy (Verified 11/12/18 16:07) Anaphylaxis meperidine [From Demerol] Allergy (Verified 11/12/18 16:07) Hives Penicillins Allergy (Verified 11/12/18 16:07) Hives Tetracyclines Allergy (Verified 11/12/18 16:07) Hives aspirin Adverse Reaction (Verified 11/12/18 16:07) Unknown atorvastatin Adverse Reaction (Verified 11/12/18 16:07) Unknown codeine Adverse Reaction (Verified 11/12/18 16:07) Unknown hydromorphone [From Dilaudid] Adverse Reaction (Verified 11/12/18 16:07) Unknown pentazocine Adverse Reaction (Verified 11/12/18 16:07) Unknown pioglitazone Adverse Reaction (Verified 11/12/18 16:07) Unknown propoxyphene Adverse Reaction (Verified 11/12/18 16:07) Unknown sulfamethoxazole [From Bactrim] Adverse Reaction (Verified 11/12/18 16:07) Unknown trimethoprim [From Bactrim] Adverse Reaction (Verified 11/12/18 16:07) Unknown chloroprep Allergy (Uncoded 11/12/18 16:07) Unknown - Current Medications Current Medications: Current Medications Acetaminophen (Tylenol) 650 mg PO Q6H PRN PRN PRN Reason: fever >100.4 Last Admin: 11/29/18 03:19 Dose: 650 mg Amiodarone HCl (Cordarone) 200 mg PO DAILY [facility] Apixaban (Eliquis) 2.5 mg PO BID [facility] Hydrocortisone Sodium Succinate (Solu-Cortef) 50 mg IV Q6 [facility] Last Admin: 11/29/18 09:58 Dose: 50 mg Sodium Chloride () 250 mls @ 15 mls/hr IV .[id number] PRN PRN Reason: SALINE FLUSH Last Admin: 11/28/18 18:49 Dose: 15 mls/hr Norepinephrine Bitartrate 8 mg (/ Dextrose) 258 mls @ 9.68 mls/hr IV .[id number] [facility] Last Admin: 11/29/18 08:01 Dose: 9.68 mls/hr Vasopressin 40 units/ Sodium (Chloride) 52 mls @ 3.12 mls/hr IV .[id number] [facility] Last Admin: 11/29/18 07:47 Dose: 3.12 mls/hr Meropenem 500 mg/ Sodium (Chloride) 60 mls @ 100 mls/hr IV Q24H [facility] Insulin Glargine (Lantus (Bkc)) 24 units SC MoWeFr@1000 [facility] Insulin Glargine (Lantus (Bkc)) 16 units SC SuTuTh@1000 [facility] Last Admin: 11/29/18 11:50 Dose: 16 units Insulin Human Lispro (Humalog Kwikpen (Bkc)) 0 unit SC ACHS [facility]; Protocol Last Admin: 11/29/18 11:50 Dose: 1 units Lactic Acid (Lac-Hydrin, Amlactin) 1 applic TOPICAL BID [facility]; Protocol Metoclopramide HCl (Reglan) 10 mg PO BID [facility] Last Admin: 11/28/18 22:44 Dose: 10 mg Ondansetron HCl (Zofran) 4 mg IV Q6H PRN PRN PRN Reason: NAUSEA/VOMITING Last Admin: 11/29/18 10:08 Dose: 4 mg Pantoprazole Sodium (Protonix) 40 mg PO DAILY [facility] Sodium Chloride () 5 - 15 ml IV UD PRN PRN Reason: SALINE FLUSH Last Admin: 11/29/18 03:38 Dose: 15 ml - Past Medical History Past Medical History (Chronic Problems): Chronic Problems (Last Updated 06/16/18 @ 10:57 by Arline Galindo) Hx of atrioventricular node ablation (Chronic 12/19/14) AV node RFA X2 noriega per report;Subsequent implant of single chamber ICD 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 Cheung @ [facility]. Also subsequent PCI's :PCI X 6 to RCA in 2013; PCI X 3 in 2014: reports not magdalena ilable but referenced in Dr. Saunders's office visit dated 05/24/2018 History of ventricular septal myectomy (Chronic 07/18/04) Septal Myectomy and CABG X 2 with Left internal thoracic artery to the LAD, and reversed SVG of the PDA per Dr. Cheung @ [facility] S/P CABG x 2 (Chronic 07/18/04) Septal Myectomy and CABG X 2 with Left internal thoracic artery to the LAD, and reversed SVG of the PDA per Dr. Cheung @ [facility] Hypertension (Chronic) Hyperlipidemia (Chronic) Type 2 diabetes mellitus (Chronic) COPD (chronic obstructive pulmonary disease) (Chronic) Chronic hypoxemic respiratory failure (Chronic) Atrial fibrillation (Chronic) 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 12/11/16) Initial single chamber ICD implant was 12/19/[address] Loya @ [facility] [place]. S/P EP/RFA; subsequent upgrade to combination pacer/ICD implant 12/11/16 [employer] VR [id number] End stage renal disease (Chronic) Diabetic neuropathy (Chronic) Peripheral vascular disease (Chronic) Venous insufficiency of both lower extremities (Chronic) Congestive heart failure (Chronic) History of PTCA (Chronic) PCI X 6 to RCA in 2013; PCI X 3 in 2014: reports not available but referenced in Dr. Saunders's office visit dated 05/24/2018 - Past Surgical History Surgical History: angioplasty, cholecystectomy, coronary bypass surgery, hysterectomy, pacemaker implantation, - - Social History Smoking Status: Former smoker Alcohol: None Drugs: None - Family History Maternal Family History: Family History (Last Updated 06/16/18 @ 10:47 by Arline Galindo) Unknown No problems noted. History Items: Hypertension Paternal Family History: Family History (Last Updated 06/16/18 @ 10:47 by Arline Galindo) Unknown No problems noted. History Items: Heart Disease - Physical Exam General: Alert, Oriented x3 HEENT: Atraumatic Neck: Supple, No JVD Lungs: Clear to auscultation, Normal air movement Cardiovascular: Irregular Rate Abdomen: Bowel Sounds Present, Soft, - - Slight tenderness over the abdomen Extremities: No clubbing, No cyanosis, Edema - 2 edema of lower extremities Musculoskeletal: No Tenderness to Palpation of Joints or Extremities Neurological: Cranial nerves II-XII grossly intact, Neuro grossly intact Psych/Mental Status: Normal Affect Vital Signs Temp Pulse Resp BP Pulse Ox 100.8 F H 64 9 L 97/18 L 100 11/29/18 07:15 11/29/18 07:15 11/29/18 07:15 11/29/18 07:15 11/29/18 07:15 Oxygen Flow Rate (L/min) 3 Oxygen Delivery Method Nasal Cannula Weight: 91.6 kg Body Mass Index (BMI) 30.4 Finger Stick Blood Glucose 126 Intake and Output for Last 24 Hours 11/27/18 11/28/18 11/29/18 23:59 23:59 23:59 Intake Total 4079.2 / 4079.2 2916 / 2916 Output Total 60 / 60 Balance 4067.2 / 4067.2 2856 / 2856 Microbiology Past 72 Hours 11/28/18 12:35 Stool Occult Blood (FIORELLA) - Final Stool Occult Blood Positive 11/28/18 12:35 C. difficile DNA Amplification - Final Stool Laboratory Tests Past 24 Hrs 11/28/18 11/28/18 11/28/18 10:48 17:28 18:35 WBC RBC Hgb Hct MCV MCH MCHC RDW RDW Differential Plt Count MPV Immature Gran % (Auto) Neut % (Auto) Lymph % (Auto) [place] % (Auto) Eos % (Auto) Baso % (Auto) Absolute Neuts (auto) Absolute Lymphs (auto) Total Counted Diff Path Review PT 23.6 H INR 2.1 Sodium Potassium Chloride Carbon Dioxide Anion Gap BUN Creatinine Estim Creat Clear Calc Est GFR (MDRD) Af Amer Est GFR (MDRD) Non-Af BUN/Creatinine Ratio Glucose Lactic Acid 1.2 Calcium Total Bilirubin AST ALT Alkaline Phosphatase Troponin I Total Protein Albumin Globulin Albumin/Globulin Ratio MRSA (PCR) Negative 11/28/18 11/28/18 11/29/18 18:35 22:35 00:35 WBC RBC Hgb Hct MCV MCH MCHC RDW RDW Differential Plt Count MPV Immature Gran % (Auto) Neut % (Auto) Lymph % (Auto) [place] % (Auto) Eos % (Auto) Baso % (Auto) Absolute Neuts (auto) Absolute Lymphs (auto) Total Counted Diff Path Review PT INR Sodium Potassium Chloride Carbon Dioxide Anion Gap BUN Creatinine Estim Creat Clear Calc Est GFR (MDRD) Af Amer Est GFR (MDRD) Non-Af BUN/Creatinine Ratio Glucose Lactic Acid Calcium Total Bilirubin AST ALT Alkaline Phosphatase Troponin I 0.427 H 0.417 H 0.412 H Total Protein Albumin Globulin Albumin/Globulin Ratio MRSA (PCR) 11/29/18 11/29/18 03:40 03:40 WBC 21.6 H RBC 3.64 L Hgb 11.5 L Hct 36.8 L MCV 101.1 H MCH 31.6 MCHC 31.3 L RDW 14.5 RDW Differential 51.6 H Plt Count 187 MPV 9.6 Immature Gran % (Auto) 0.300 Neut % (Auto) 87.2 H Lymph % (Auto) 4.4 L [place] % (Auto) 7.9 Eos % (Auto) 0.0 Baso % (Auto) 0.2 Absolute Neuts (auto) 18.9 H Absolute Lymphs (auto) 0.96 Total Counted Not Reportable Diff Path Review May foll PT INR Sodium 141 Potassium 5.0 Chloride 106 Carbon Dioxide 22.0 Anion Gap 13 BUN 47 H Creatinine 6.63 H Estim Creat Clear Calc 7.17 Est GFR (MDRD) Af Amer 8 L Est GFR (MDRD) Non-Af 6 L BUN/Creatinine Ratio 7.1 L Glucose 175 H Lactic Acid Calcium 7.5 L Total Bilirubin 0.60 AST 31 ALT 17 Alkaline Phosphatase 89 Troponin I Total Protein 6.0 L Albumin 2.1 L Globulin 3.9 Albumin/Globulin Ratio 0.5 L MRSA (PCR) POC Glucose 11/29/18 11/29/18 11/28/18 11:43 07:51 22:40 POC Glucose 189 H 152 H 124 H 11/28/18 19:12 POC Glucose 114 H Assessment/Plan 1-stage renal disease on Wednesday hemodialysis schedule. Last hemodialysis session was on November 25. And hemodialysis access is right IJ tunneled catheter. No need for urgent dialysis today. No fluid overload. No hyperkalemia. Stable respiratory status. I will arrange for dialysis tomorrow. 2-hemodynamic shock most related to sepsis and hypovolemia. Hemodynamic support as per the ICU. Antibiotics as per ID service. Follow blood and urine culture. Sepsis source still unclear. 3-anemia: Hemoglobin more than 11. No need for WILLY for now. Check hemoglobin in the morning. Renal team will continue to follow Please call with any question or concern. Jonna Martin MD [phone]
--- NOTE | 2018-11-29 13:15 | NURSING ---
return from [place]
[2018-11-29 14:09] LABS: Pathologist Review Reviewed
--- NOTE | 2018-11-29 17:00 | NURSING ---
education re chronic illness deferred till acute illness resolving
[2018-11-29 17:16] LABS: Bedside Glucose 219 mg/dL (70-110)
[2018-11-29 17:26] LABS: Hematocrit 32.6 % (37-47); Hemoglobin 10.4 g/dl (12.0-15.0)
[2018-11-29] MEDS: Ammonium Lactate 225 gm Bottle 1 APPLIC TOPICAL (22:12)
[2018-11-30] VITALS (58 sets, daily range): BP systolic 97–147; BP diastolic 40–57; PULSE 60–69; RESP 10–24; TEMP 36.3–37.1; O2SAT 90–100
[2018-11-30] MEDS: Insulin Lispro 100 UNIT/ML INSULN.PEN SC ×4 (00:01→21:26)
[2018-11-30] MEDS: Hydrocortisone Sod Succinate 100 MG/2 ML Vial 50 MG IV ×5 (00:01→23:05)
[2018-11-30] MEDS: 0.9% NaCl Peripheral Flush Adult/Peds IV ×3 (00:02→23:05)
[2018-11-30 00:16] LABS: Bedside Glucose 193 mg/dL (70-110)
[2018-11-30 04:36] LABS: Absolute Lymphocyte Count 0.64 X10^3/ul (0.83-4.51); Absolute Neutrophil Count 16.7 X10^3/uL (2.0-7.7); Basophil# 0.01 X10^3/uL; Basophil% 0.1 % (0-1); Hematocrit 31.1 % (37-47); Hemoglobin 9.8 g/dl (12.0-15.0); Lymphocyte # 0.64 X10^3/ul (4.0); Lymphocyte % 3.5 % (19-41); Mean Corp Hgb Conc 31.5 g/gl (32-36); Mean Corpuscular Hgb 31.5 pg (27.0-32.0); Mean Platelet Vol. 8.9 fl (6.2-12.0); Monocyte# 0.96 X10^3/uL; Monocyte% 5.2 % (0-10); Neutrophil # 16.74 X10^3/uL (2.7-7.7); Platelet Count 138 K/mm3 (150-450); RBC Distribution Width CV 14.4 % (11.6-14.6); RBC Distribution Width SD 50.5 fl (35.1-43.9); Red Blood Count 3.11 M/mm3 (4.2-5.4); White Blood Count 18.4 K/mm3 (4.4-11.0)
[2018-11-30 04:38] LABS: POSITIVE COUNT NO; POSITIVE DIFFERENTIAL NO; POSITIVE MORPHOLOGY NO
[2018-11-30 04:47] LABS: Anion Gap 12 (5-15); BUN 62 mg/dL (7-18); BUN/Creat Ratio 9.3 RATIO (10-20); Calcium,Total 7.6 mg/dL (8.5-10.1); Chloride 104 mmol/L (98-107); Creatinine, Serum 6.69 mg/dL (0.55-1.02); EST Glomerular Filtration Rate 6 mL/min (>60); Est Glom Filt Rate - Afr Amer 8 mL/min (>60); Glucose 193 mg/dL (74-106); Magnesium 2.2 mg/dL (1.6-2.6); Phosphorus 7.2 mg/dL (2.5-4.9); Potassium 5.2 mmol/L (3.5-5.1); Sodium Level 138 mmol/L (136-145)
[2018-11-30 05:46] LABS: Bedside Glucose 177 mg/dL (70-110)
--- NOTE | 2018-11-30 06:48 | PCM.PN.INT ---
Subjective: The patient was seen and examined at the bedside this morning. Events from the last 24 hours have been reviewed. The patient is currently afebrile, hemodynamically stable and maintaining appropriate oxygen saturations on 4 L/min via nasal cannula. The patient is no longer requiring vasopressin. Levophed requirement has been weaned to 5 mcg. The patient's only complaint is for that of gas. She reports a mild degree of abdominal discomfort which she attributes to the aforementioned. Per nephrology, there are plans for dialysis today. The patient is currently overall net +8 L for the admission. Of note, I was notified by the nursing staff last evening that the patient had a bloody bowel movement, for which an order was placed to discontinue her Eliquis. Blood counts are currently stable, nonetheless. Objective: The patient's most recent lab work, culture data and imaging studies have all been personally reviewed. Respiratory viral panel was negative. Blood and urine cultures have shown no growth to date. C. difficile was negative. Enteric panel was negative. Stool for occult blood was positive. Surface echocardiogram from April 2018 revealed mild concentric LVH with an ejection fraction of 55%. Right ventricular systolic pressure was estimated to be 77 [address] abdomen/pelvis with contrast revealed nonspecific inflammatory bowel disease involving the descending colon along with scattered diverticular changes within the descending and sigmoid colon. General: Alert, Cooperative, No apparent distress HEENT: Atraumatic, PERRLA, Normocephalic Oral: No Gingival or Mucosal Lesions/ Ulcerations Neck: Supple, No Nodes, Trachea Midline, - - Right-sided tunneled hemodialysis catheter remains in place. Left IJ triple-lumen catheter in place. Lungs: No rhonchi, No wheeze, Diminished, Rales Cardiovascular: Regular rate, Regular Rhythm, Normal S1, Normal S2, No murmurs Abdomen: Bowel Sounds Present, Soft, Non Tender, Distended Extremities: No clubbing, No cyanosis, Edema Skin: - - No significant change from previous. Musculoskeletal: No Tenderness to Palpation of Joints or Extremities Lymphatic: No Cervical, Supraclavicular, or Inguinal Adenopathy Neurological: Cranial nerves II-XII grossly intact, Neuro grossly intact Psych/Mental Status: Normal Affect, Appropriate Vital Signs Temp Pulse Resp BP Pulse Ox 36.6 C 60 17 122/46 H 92 11/30/18 06:45 11/30/18 06:45 11/30/18 06:45 11/30/18 06:45 11/30/18 06:45 Oxygen Flow Rate (L/min) 4 Oxygen Delivery Method Nasal Cannula Weight: 214 lb 4.629 oz Body Mass Index (BMI) 30.4 Finger Stick Blood Glucose 126 Intake and Output for Last 24 Hours 11/28/18 11/29/18 11/30/18 23:59 23:59 23:59 Intake Total 4079.2 / 4079.2 3252 / 3252 828.3 / 828.3 Output Total 120 / 120 80 / 80 Balance 4067.2 / 4067.2 3132 / 3132 748.3 / 748.3 Labs (Last 48 Hours) 11/28/18 11/28/18 11/28/18 10:48 10:48 10:48 WBC 17.9 H RBC 4.49 Hgb 14.4 Hct 45.4 MCV 101.1 H MCH 32.1 H MCHC 31.7 L RDW 14.6 RDW Differential 53.5 H Plt Count 160 MPV 10.0 Immature Gran % (Auto) 0.400 Neut % (Auto) 87.9 H Lymph % (Auto) 7.1 L [place] % (Auto) 4.2 Eos % (Auto) 0.2 Baso % (Auto) 0.2 Absolute Neuts (auto) 15.7 H Absolute Lymphs (auto) 1.28 Total Counted Not Reportable Diff Path Review PT INR Sodium 136 Potassium 5.1 Chloride 98 Carbon Dioxide 24.0 Anion Gap 14 BUN 43 H Creatinine 7.27 H Estim Creat Clear Calc 6.54 Est GFR (MDRD) Af Amer 7 L Est GFR (MDRD) Non-Af 6 L BUN/Creatinine Ratio 5.9 L Glucose 149 H Lactic Acid 4.8 H* Calcium 8.9 Phosphorus Magnesium Total Bilirubin AST ALT Alkaline Phosphatase Troponin I 0.470 H Total Protein Albumin Globulin Albumin/Globulin Ratio MRSA (PCR) POC Glucose 11/28/18 11/28/18 11/28/18 10:48 17:28 18:35 WBC RBC Hgb Hct MCV MCH MCHC RDW RDW Differential Plt Count MPV Immature Gran % (Auto) Neut % (Auto) Lymph % (Auto) [place] % (Auto) Eos % (Auto) Baso % (Auto) Absolute Neuts (auto) Absolute Lymphs (auto) Total Counted Diff Path Review PT 23.6 H INR 2.1 Sodium Potassium Chloride Carbon Dioxide Anion Gap BUN Creatinine Estim Creat Clear Calc Est GFR (MDRD) Af Amer Est GFR (MDRD) Non-Af BUN/Creatinine Ratio Glucose Lactic Acid 1.2 Calcium Phosphorus Magnesium Total Bilirubin AST ALT Alkaline Phosphatase Troponin I Total Protein Albumin Globulin Albumin/Globulin Ratio MRSA (PCR) Negative POC Glucose 11/28/18 11/28/18 11/28/18 18:35 19:12 22:35 WBC RBC Hgb Hct MCV MCH MCHC RDW RDW Differential Plt Count MPV Immature Gran % (Auto) Neut % (Auto) Lymph % (Auto) [place] % (Auto) Eos % (Auto) Baso % (Auto) Absolute Neuts (auto) Absolute Lymphs (auto) Total Counted Diff Path Review PT INR Sodium Potassium Chloride Carbon Dioxide Anion Gap BUN Creatinine Estim Creat Clear Calc Est GFR (MDRD) Af Amer Est GFR (MDRD) Non-Af BUN/Creatinine Ratio Glucose Lactic Acid Calcium Phosphorus Magnesium Total Bilirubin AST ALT Alkaline Phosphatase Troponin I 0.427 H 0.417 H Total Protein Albumin Globulin Albumin/Globulin Ratio MRSA (PCR) POC Glucose 114 H 11/28/18 11/29/18 11/29/18 22:40 00:35 03:40 WBC 21.6 H RBC 3.64 L Hgb 11.5 L Hct 36.8 L MCV 101.1 H MCH 31.6 MCHC 31.3 L RDW 14.5 RDW Differential 51.6 H Plt Count 187 MPV 9.6 Immature Gran % (Auto) 0.300 Neut % (Auto) 87.2 H Lymph % (Auto) 4.4 L [place] % (Auto) 7.9 Eos % (Auto) 0.0 Baso % (Auto) 0.2 Absolute Neuts (auto) 18.9 H Absolute Lymphs (auto) 0.96 Total Counted Not Reportable Diff Path Review Reviewed PT INR Sodium Potassium Chloride Carbon Dioxide Anion Gap BUN Creatinine Estim Creat Clear Calc Est GFR (MDRD) Af Amer Est GFR (MDRD) Non-Af BUN/Creatinine Ratio Glucose Lactic Acid Calcium Phosphorus Magnesium Total Bilirubin AST ALT Alkaline Phosphatase Troponin I 0.412 H Total Protein Albumin Globulin Albumin/Globulin Ratio MRSA (PCR) POC Glucose 124 H 11/29/18 11/29/18 11/29/18 03:40 07:51 11:43 WBC RBC Hgb Hct MCV MCH MCHC RDW RDW Differential Plt Count MPV Immature Gran % (Auto) Neut % (Auto) Lymph % (Auto) [place] % (Auto) Eos % (Auto) Baso % (Auto) Absolute Neuts (auto) Absolute Lymphs (auto) Total Counted Diff Path Review PT INR Sodium 141 Potassium 5.0 Chloride 106 Carbon Dioxide 22.0 Anion Gap 13 BUN 47 H Creatinine 6.63 H Estim Creat Clear Calc 7.17 Est GFR (MDRD) Af Amer 8 L Est GFR (MDRD) Non-Af 6 L BUN/Creatinine Ratio 7.1 L Glucose 175 H Lactic Acid Calcium 7.5 L Phosphorus Magnesium Total Bilirubin 0.60 AST 31 ALT 17 Alkaline Phosphatase 89 Troponin I Total Protein 6.0 L Albumin 2.1 L Globulin 3.9 Albumin/Globulin Ratio 0.5 L MRSA (PCR) POC Glucose 152 H 189 H 11/29/18 11/29/18 11/30/18 17:00 17:01 00:00 WBC RBC Hgb 10.4 L Hct 32.6 L MCV MCH MCHC RDW RDW Differential Plt Count MPV Immature Gran % (Auto) Neut % (Auto) Lymph % (Auto) [place] % (Auto) Eos % (Auto) Baso % (Auto) Absolute Neuts (auto) Absolute Lymphs (auto) Total Counted Diff Path Review PT INR Sodium Potassium Chloride Carbon Dioxide Anion Gap BUN Creatinine Estim Creat Clear Calc Est GFR (MDRD) Af Amer Est GFR (MDRD) Non-Af BUN/Creatinine Ratio Glucose Lactic Acid Calcium Phosphorus Magnesium Total Bilirubin AST ALT Alkaline Phosphatase Troponin I Total Protein Albumin Globulin Albumin/Globulin Ratio MRSA (PCR) POC Glucose 219 H 193 H 11/30/18 11/30/18 11/30/18 04:25 04:25 05:36 WBC 18.4 H RBC 3.11 L Hgb 9.8 L Hct 31.1 L MCV 100.0 H MCH 31.5 MCHC 31.5 L RDW 14.4 RDW Differential 50.5 H Plt Count 138 L MPV 8.9 Immature Gran % (Auto) 0.200 Neut % (Auto) 91.0 H Lymph % (Auto) 3.5 L [place] % (Auto) 5.2 Eos % (Auto) 0.0 Baso % (Auto) 0.1 Absolute Neuts (auto) 16.7 H Absolute Lymphs (auto) 0.64 L Total Counted Not Reportable Diff Path Review PT INR Sodium 138 Potassium 5.2 H Chloride 104 Carbon Dioxide 22.0 Anion Gap 12 BUN 62 H Creatinine 6.69 H Estim Creat Clear Calc 7.10 Est GFR (MDRD) Af Amer 8 L Est GFR (MDRD) Non-Af 6 L BUN/Creatinine Ratio 9.3 L Glucose 193 H Lactic Acid Calcium 7.6 L Phosphorus 7.2 H Magnesium 2.2 Total Bilirubin AST ALT Alkaline Phosphatase Troponin I Total Protein Albumin Globulin Albumin/Globulin Ratio MRSA (PCR) POC Glucose 177 H Microbiology 11/29/18 10:45 Mucosa - Nasopharyngeal Respiratory Panel (PCR) - Final 11/28/18 12:35 Stool Enteric Bacteriology - Final 11/28/18 12:35 Stool Stool Occult Blood (FIORELLA) - Final Occult Blood Positive 11/28/18 12:35 Stool C. difficile DNA Amplification - Final Clinical Impression(s) from Imaging Studies Brain CT 11/28/18 10:21 IMPRESSION: Chronic involutional changes of the brain. Electronically Signed: Demario Jha DO at 12:53 EST Tel , Service support , Chest X-Ray 11/28/18 12:03 IMPRESSION: Blunting of the left costophrenic angle with findings suggestive of scarring at the left lung base. Electronically Signed: Antonio Pascual MD at 14:28 EST , Service support , Pelvis X-Ray 11/28/18 12:07 IMPRESSION: No acute findings Electronically Signed: Demario Jha DO at 12:41 EST Tel , Service support , Chest X-Ray 11/28/18 18:08 IMPRESSION: Small left pleural effusion and left lower lobe atelectasis. No evidence for pneumothorax status post central line placement Electronically Signed: Kevin Garzon MD at 19:10 EST , Service support , Abdomen/Pelvis CT 11/29/18 08:50 IMPRESSION: Nonspecific acute inflammatory bowel disease involving the descending colon with trace of free fluid in the paracolic gutter and pelvis There are also diverticular changes within the descending and sigmoid colon however due to the length of the involved segment of inflamed bowel diverticulitis is less likely to be etiology. Electronically Signed: Kevin Garzon MD at 16:57 EST , Service support , Medical Necessity - Tobacco Use Smoking Status: Former smoker Assessment/Plan RECOMMENDATIONS: 1. Continue Levophed to maintain a mean arterial pressure at or above 65 mmHg. 2. Continue hydrocortisone 50 mg every 6 hours. Stress dose steroids can be weaned once vasopressor support has been discontinued. 3. Continue current antimicrobial regimen. 4. Continue to monitor blood counts daily. Plan to transfuse for hemoglobin less than 7 g/dL. 5. Plan for dialysis today. 6. Start simethicone 7. Continue Eliquis and amiodarone. IMPRESSIONS: 1. Septic shock with unclear source of infection The patient initially presented to the emergency department with significant hypotension which was presumed to be secondary to hypovolemia. The patient received IV fluid resuscitation and was noted to have an elevated lactate level. In addition, she did have an elevated white blood cell count. While no antibiotics were initiated in the emergency department, they were subsequently started upon arrival to the medical intensive care unit. Since that time, the patient's white blood cell count has increased and she is now febrile. The exact source of infection is still not known. However, she will be maintained on broad-spectrum antibiotics along with vasopressor support to maintain hemodynamic stability. Stress dose steroids can be weaned once the patient's vasopressor support has been discontinued. 2. Troponin elevation/history of coronary artery disease status post CABG/atrial fibrillation Potentially related to #1. Most likely secondary to demand ischemia in the setting of #1. 3. End-stage renal disease on hemodialysis Continue hemodialysis per nephrology recommendations. Recommend that no fluid removal be considered at this time. 4. Questionable COPD of unknown severity/chronic hypoxemic respiratory failure/questionable obstructive sleep apnea The patient has a questionable history of COPD and reportedly utilizes 2 L/min of supplemental oxygen at her baseline. In addition, she has a possible history of obstructive sleep apnea for which she is supposed to utilize nocturnal CPAP therapy. 5. Advanced age/questionable history of COPD/diabetic neuropathy/peripheral vascular disease/hypertension/hyperlipidemia Complicates care, management, recovery and prognosis. The patient will require eventual evaluation by physical therapy, once medically stabilized. 6. CODE STATUS Confirmed to be DNR CCA with intubation. TIME: 40 minutes of critical care time, inclusive of procedures, was spent addressing the patient's hypovolemic versus septic shock, troponin elevation, end-stage renal disease, review of all data and collaboration with the care team. ([id number]) Code Visit 9xxxx: [id number] Critical care first hour
--- NOTE | 2018-11-30 06:52 | PN_ITS ---
Subjective: The patient was seen and examined at the bedside this morning. Events from the last 24 hours have been reviewed. The patient is currently afebrile, hemodynamically stable and maintaining appropriate oxygen saturations on 4 L/min via nasal cannula. The patient is no longer requiring vasopressin. Levophed requirement has been weaned to 5 mcg. The patient's only complaint is for that of gas. She reports a mild degree of abdominal discomfort which she attributes to the aforementioned. Per nephrology, there are plans for dialysis today. The patient is currently overall net +8 L for the admission. Of note, I was notified by the nursing staff last evening that the patient had a bloody bowel movement, for which an order was placed to discontinue her Eliquis. Blood counts are currently stable, nonetheless. Objective: The patient's most recent lab work, culture data and imaging studies have all been personally reviewed. Respiratory viral panel was negative. Blood and urine cultures have shown no growth to date. C. difficile was negative. Enteric panel was negative. Stool for occult blood was positive. Surface echocardiogram from April 2018 revealed mild concentric LVH with an ejection fraction of 55%. Right ventricular systolic pressure was estimated to be 77 [address] at [address] time[address] abdomen/pelvis with contrast revealed nonspecific inflammatory bowel disease involving the descending colon along with scattered diverticular changes within the descending and sigmoid colon. General: Alert, Cooperative, No apparent distress HEENT: Atraumatic, PERRLA, Normocephalic Oral: No Gingival or Mucosal Lesions/ Ulcerations Neck: Supple, No Nodes, Trachea Midline, - - Right-sided tunneled hemodialysis catheter remains in place. Left IJ triple-lumen catheter in place. Lungs: No rhonchi, No wheeze, Diminished, Rales Cardiovascular: Regular rate, Regular Rhythm, Normal S1, Normal S2, No murmurs Abdomen: Bowel Sounds Present, Soft, Non Tender, Distended Extremities: No clubbing, No cyanosis, Edema Skin: - - No significant change from previous. Musculoskeletal: No Tenderness to Palpation of Joints or Extremities Lymphatic: No Cervical, Supraclavicular, or Inguinal Adenopathy Neurological: Cranial nerves II-XII grossly intact, Neuro grossly intact Psych/Mental Status: Normal Affect, Appropriate Vital Signs Temp Pulse Resp BP Pulse Ox 36.6 C 60 17 122/46 H 92 11/30/18 06:45 11/30/18 06:45 11/30/18 06:45 11/30/18 06:45 11/30/18 06:45 Oxygen Flow Rate (L/min) 4 Oxygen Delivery Method Nasal Cannula Weight: 214 lb 4.629 oz Body Mass Index (BMI) 30.4 Finger Stick Blood Glucose 126 Intake and Output for Last 24 Hours 11/28/18 11/29/18 11/30/18 23:59 23:59 23:59 Intake Total 4079.2 / 4079.2 3252 / 3252 828.3 / 828.3 Output Total 120 / 120 80 / 80 Balance 4067.2 / 4067.2 3132 / 3132 748.3 / 748.3 Labs (Last 48 Hours) 11/28/18 11/28/18 11/28/18 10:48 10:48 10:48 WBC 17.9 H RBC 4.49 Hgb 14.4 Hct 45.4 MCV 101.1 H MCH 32.1 H MCHC 31.7 L RDW 14.6 RDW Differential 53.5 H Plt Count 160 MPV 10.0 Immature Gran % (Auto) 0.400 Neut % (Auto) 87.9 H Lymph % (Auto) 7.1 L [place] % (Auto) 4.2 Eos % (Auto) 0.2 Baso % (Auto) 0.2 Absolute Neuts (auto) 15.7 H Absolute Lymphs (auto) 1.28 Total Counted Not Reportable Diff Path Review PT INR Sodium 136 Potassium 5.1 Chloride 98 Carbon Dioxide 24.0 Anion Gap 14 BUN 43 H Creatinine 7.27 H Estim Creat Clear Calc 6.54 Est GFR (MDRD) Af Amer 7 L Est GFR (MDRD) Non-Af 6 L BUN/Creatinine Ratio 5.9 L Glucose 149 H Lactic Acid 4.8 H* Calcium 8.9 Phosphorus Magnesium Total Bilirubin AST ALT Alkaline Phosphatase Troponin I 0.470 H Total Protein Albumin Globulin Albumin/Globulin Ratio MRSA (PCR) POC Glucose 11/28/18 11/28/18 11/28/18 10:48 17:28 18:35 WBC RBC Hgb Hct MCV MCH MCHC RDW RDW Differential Plt Count MPV Immature Gran % (Auto) Neut % (Auto) Lymph % (Auto) [place] % (Auto) Eos % (Auto) Baso % (Auto) Absolute Neuts (auto) Absolute Lymphs (auto) Total Counted Diff Path Review PT 23.6 H INR 2.1 Sodium Potassium Chloride Carbon Dioxide Anion Gap BUN Creatinine Estim Creat Clear Calc Est GFR (MDRD) Af Amer Est GFR (MDRD) Non-Af BUN/Creatinine Ratio Glucose Lactic Acid 1.2 Calcium Phosphorus Magnesium Total Bilirubin AST ALT Alkaline Phosphatase Troponin I Total Protein Albumin Globulin Albumin/Globulin Ratio MRSA (PCR) Negative POC Glucose 11/28/18 11/28/18 11/28/18 18:35 19:12 22:35 WBC RBC Hgb Hct MCV MCH MCHC RDW RDW Differential Plt Count MPV Immature Gran % (Auto) Neut % (Auto) Lymph % (Auto) [place] % (Auto) Eos % (Auto) Baso % (Auto) Absolute Neuts (auto) Absolute Lymphs (auto) Total Counted Diff Path Review PT INR Sodium Potassium Chloride Carbon Dioxide Anion Gap BUN Creatinine Estim Creat Clear Calc Est GFR (MDRD) Af Amer Est GFR (MDRD) Non-Af BUN/Creatinine Ratio Glucose Lactic Acid Calcium Phosphorus Magnesium Total Bilirubin AST ALT Alkaline Phosphatase Troponin I 0.427 H 0.417 H Total Protein Albumin Globulin Albumin/Globulin Ratio MRSA (PCR) POC Glucose 114 H 11/28/18 11/29/18 11/29/18 22:40 00:35 03:40 WBC 21.6 H RBC 3.64 L Hgb 11.5 L Hct 36.8 L MCV 101.1 H MCH 31.6 MCHC 31.3 L RDW 14.5 RDW Differential 51.6 H Plt Count 187 MPV 9.6 Immature Gran % (Auto) 0.300 Neut % (Auto) 87.2 H Lymph % (Auto) 4.4 L [place] % (Auto) 7.9 Eos % (Auto) 0.0 Baso % (Auto) 0.2 Absolute Neuts (auto) 18.9 H Absolute Lymphs (auto) 0.96 Total Counted Not Reportable Diff Path Review Reviewed PT INR Sodium Potassium Chloride Carbon Dioxide Anion Gap BUN Creatinine Estim Creat Clear Calc Est GFR (MDRD) Af Amer Est GFR (MDRD) Non-Af BUN/Creatinine Ratio Glucose Lactic Acid Calcium Phosphorus Magnesium Total Bilirubin AST ALT Alkaline Phosphatase Troponin I 0.412 H Total Protein Albumin Globulin Albumin/Globulin Ratio MRSA (PCR) POC Glucose 124 H 11/29/18 11/29/18 11/29/18 03:40 07:51 11:43 WBC RBC Hgb Hct MCV MCH MCHC RDW RDW Differential Plt Count MPV Immature Gran % (Auto) Neut % (Auto) Lymph % (Auto) [place] % (Auto) Eos % (Auto) Baso % (Auto) Absolute Neuts (auto) Absolute Lymphs (auto) Total Counted Diff Path Review PT INR Sodium 141 Potassium 5.0 Chloride 106 Carbon Dioxide 22.0 Anion Gap 13 BUN 47 H Creatinine 6.63 H Estim Creat Clear Calc 7.17 Est GFR (MDRD) Af Amer 8 L Est GFR (MDRD) Non-Af 6 L BUN/Creatinine Ratio 7.1 L Glucose 175 H Lactic Acid Calcium 7.5 L Phosphorus Magnesium Total Bilirubin 0.60 AST 31 ALT 17 Alkaline Phosphatase 89 Troponin I Total Protein 6.0 L Albumin 2.1 L Globulin 3.9 Albumin/Globulin Ratio 0.5 L MRSA (PCR) POC Glucose 152 H 189 H 11/29/18 11/29/18 11/30/18 17:00 17:01 00:00 WBC RBC Hgb 10.4 L Hct 32.6 L MCV MCH MCHC RDW RDW Differential Plt Count MPV Immature Gran % (Auto) Neut % (Auto) Lymph % (Auto) [place] % (Auto) Eos % (Auto) Baso % (Auto) Absolute Neuts (auto) Absolute Lymphs (auto) Total Counted Diff Path Review PT INR Sodium Potassium Chloride Carbon Dioxide Anion Gap BUN Creatinine Estim Creat Clear Calc Est GFR (MDRD) Af Amer Est GFR (MDRD) Non-Af BUN/Creatinine Ratio Glucose Lactic Acid Calcium Phosphorus Magnesium Total Bilirubin AST ALT Alkaline Phosphatase Troponin I Total Protein Albumin Globulin Albumin/Globulin Ratio MRSA (PCR) POC Glucose 219 H 193 H 11/30/18 11/30/18 11/30/18 04:25 04:25 05:36 WBC 18.4 H RBC 3.11 L Hgb 9.8 L Hct 31.1 L MCV 100.0 H MCH 31.5 MCHC 31.5 L RDW 14.4 RDW Differential 50.5 H Plt Count 138 L MPV 8.9 Immature Gran % (Auto) 0.200 Neut % (Auto) 91.0 H Lymph % (Auto) 3.5 L [place] % (Auto) 5.2 Eos % (Auto) 0.0 Baso % (Auto) 0.1 Absolute Neuts (auto) 16.7 H Absolute Lymphs (auto) 0.64 L Total Counted Not Reportable Diff Path Review PT INR Sodium 138 Potassium 5.2 H Chloride 104 Carbon Dioxide 22.0 Anion Gap 12 BUN 62 H Creatinine 6.69 H Estim Creat Clear Calc 7.10 Est GFR (MDRD) Af Amer 8 L Est GFR (MDRD) Non-Af 6 L BUN/Creatinine Ratio 9.3 L Glucose 193 H Lactic Acid Calcium 7.6 L Phosphorus 7.2 H Magnesium 2.2 Total Bilirubin AST ALT Alkaline Phosphatase Troponin I Total Protein Albumin Globulin Albumin/Globulin Ratio MRSA (PCR) POC Glucose 177 H Microbiology 11/29/18 10:45 Mucosa - Nasopharyngeal Respiratory Panel (PCR) - Final 11/28/18 12:35 Stool Enteric Bacteriology - Final 11/28/18 12:35 Stool Stool Occult Blood (FIORELLA) - Final Occult Blood Positive 11/28/18 12:35 Stool C. difficile DNA Amplification - Final Clinical Impression(s) from Imaging Studies Brain CT 11/28/18 10:21 IMPRESSION: Chronic involutional changes of the brain. Electronically Signed: Demario Jha DO at 12:53 EST Tel , Service support , Chest X-Ray 11/28/18 12:03 IMPRESSION: Blunting of the left costophrenic angle with findings suggestive of scarring at the left lung base. Electronically Signed: Antonio Pascual MD at 14:28 EST , Service support , Pelvis X-Ray 11/28/18 12:07 IMPRESSION: No acute findings Electronically Signed: Demario Jha DO at 12:41 EST Tel , Service support , Chest X-Ray 11/28/18 18:08 IMPRESSION: Small left pleural effusion and left lower lobe atelectasis. No evidence for pneumothorax status post central line placement Electronically Signed: Kevin Garzon MD at 19:10 EST , Service support , Abdomen/Pelvis CT 11/29/18 08:50 IMPRESSION: Nonspecific acute inflammatory bowel disease involving the descending colon with trace of free fluid in the paracolic gutter and pelvis There are also diverticular changes within the descending and sigmoid colon however due to the length of the involved segment of inflamed bowel diverticulitis is less likely to be etiology. Electronically Signed: Kevin Garzon MD at 16:57 EST , Service support , Medical Necessity - Tobacco Use Smoking Status: Former smoker Assessment/Plan RECOMMENDATIONS: 1. Continue Levophed to maintain a mean arterial pressure at or above 65 mmHg. 2. Continue hydrocortisone 50 mg every 6 hours. Stress dose steroids can be weaned once vasopressor support has been discontinued. 3. Continue current antimicrobial regimen. 4. Continue to monitor blood counts daily. Plan to transfuse for hemoglobin less than 7 g/dL. 5. Plan for dialysis today. 6. Start simethicone 7. Continue Eliquis and amiodarone. IMPRESSIONS: 1. Septic shock with unclear source of infection The patient initially presented to the emergency department with significant hypotension which was presumed to be secondary to hypovolemia. The patient received IV fluid resuscitation and was noted to have an elevated lactate level. In addition, she did have an elevated white blood cell count. While no antibiotics were initiated in the emergency department, they were subsequently started upon arrival to the medical intensive care unit. Since that time, the patient's white blood cell count has increased and she is now febrile. The exact source of infection is still not known. However, she will be maintained on broad-spectrum antibiotics along with vasopressor support to maintain hemodynamic stability. Stress dose steroids can be weaned once the patient's vasopressor support has been discontinued. 2. Troponin elevation/history of coronary artery disease status post CABG/atrial fibrillation Potentially related to #1. Most likely secondary to demand ischemia in the setting of #1. 3. End-stage renal disease on hemodialysis Continue hemodialysis per nephrology recommendations. Recommend that no fluid removal be considered at this time. 4. Questionable COPD of unknown severity/chronic hypoxemic respiratory failure/questionable obstructive sleep apnea The patient has a questionable history of COPD and reportedly utilizes 2 L/min of supplemental oxygen at her baseline. In addition, she has a possible history of obstructive sleep apnea for which she is supposed to utilize nocturnal CPAP therapy. 5. Advanced age/questionable history of COPD/diabetic neuropathy/peripheral vascular disease/hypertension/hyperlipidemia Complicates care, management, recovery and prognosis. The patient will require eventual evaluation by physical therapy, once medically stabilized. 6. CODE STATUS Confirmed to be DNR CCA with intubation. TIME: 40 minutes of critical care time, inclusive of procedures, was spent addressing the patient's hypovolemic versus septic shock, troponin elevation, end-stage renal disease, review of all data and collaboration with the care team. ([id number]) Code Visit 9xxxx: [id number] Critical care first hour
[2018-11-30] MEDS: Ammonium Lactate 225 gm Bottle 1 APPLIC TOPICAL ×2 (10:36→21:27)
--- NOTE | 2018-11-30 11:13 | PCM.PN.HOSP ---
Subjective: Patient seen remains on ICU vasopressin as being weaned off remains on Levophed. Her diagnostic workup with regards to infectious etiology for patient sepsis so far negative to date. Objective: GENERAL: Lethargic but arousable HEENT: Atraumatic; moist oral mucosa EYES; Anicteric, Normal Conjunctiva NECK; supple, normal thyroid, RESPIRATORY: Diminished to auscultation bilaterally, CARDIOVASCULAR: Regular S1 S2, no audible murmurs GI: soft, non-tender, normoactive bowel sounds, : No Renal angle tenderness; EXTREMITIES: Cool to touch. MUSCULOSKELETAL: No Joint Tenderness; NEURO: Awake; no lateralizing signs. SKIN: Stasis dermatitis involving both lower extremities PSYCH; flat affect Vitals/I&O's: Vital Signs Temp Pulse Resp BP Pulse Ox 97.4 F L 60 12 130/57 H 97 11/30/18 08:00 11/30/18 11:00 11/30/18 11:00 11/30/18 11:00 11/30/18 11:00 Oxygen Flow Rate (L/min) 4 Oxygen Delivery Method Nasal Cannula Weight: 97.2 kg Body Mass Index (BMI) 30.4 Finger Stick Blood Glucose 126 Intake and Output for Last 24 Hours 11/28/18 11/29/18 11/30/18 23:59 23:59 23:59 Intake Total 4079.2 / 4079.2 3252 / 3252 828.3 / 828.3 Output Total 120 / 120 80 / 80 Balance 4067.2 / 4067.2 3132 / 3132 748.3 / 748.3 Microbiology Past 72 Hours 11/29/18 10:45 Mucosa - Nasopharyngeal Respiratory Panel (PCR) - Final 11/28/18 12:35 Stool Enteric Bacteriology - Final 11/28/18 12:35 Stool Stool Occult Blood (FIORELLA) - Final Occult Blood Positive 11/28/18 12:35 Stool C. difficile DNA Amplification - Final Laboratory Results 11/29/18 03:40: Diff Path Review Reviewed 11/29/18 11:43: POC Glucose 189 H 11/29/18 17:00: Hgb 10.4 L, Hct 32.6 L 11/29/18 17:01: POC Glucose 219 H 11/30/18 00:00: POC Glucose 193 H 11/30/18 04:25: WBC 18.4 H, RBC 3.11 L, Hgb 9.8 L, Hct 31.1 L, MCV 100.0 H, MCH 31.5, MCHC 31.5 L, RDW 14.4, RDW Differential 50.5 H, Plt Count 138 L, MPV 8.9, Immature Gran % (Auto) 0.200, Neut % (Auto) 91.0 H, Lymph % (Auto) 3.5 L, [place] % (Auto) 5.2, Eos % (Auto) 0.0, Baso % (Auto) 0.1, Absolute Neuts (auto) 16.7 H, Absolute Lymphs (auto) 0.64 L, Total Counted Not Reportable 11/30/18 04:25: Sodium 138, Potassium 5.2 H, Chloride 104, Carbon Dioxide 22.0, Anion Gap 12, BUN 62 H, Creatinine 6.69 H, Estim Creat Clear Calc 7.10, Est GFR (MDRD) Af Amer 8 L, Est GFR (MDRD) Non-Af 6 L, BUN/Creatinine Ratio 9.3 L, Glucose 193 H, Calcium 7.6 L, Phosphorus 7.2 H, Magnesium 2.2 11/30/18 05:36: POC Glucose 177 H Current Medications Acetaminophen (Tylenol) 650 mg PO Q6H PRN PRN PRN Reason: fever >100.4 Last Admin: 11/29/18 03:19 Dose: 650 mg Amiodarone HCl (Cordarone) 200 mg PO DAILY [facility] Apixaban (Eliquis) 2.5 mg PO BID [facility] Hydrocortisone Sodium Succinate (Solu-Cortef) 50 mg IV Q6 [facility] Last Admin: 11/30/18 05:37 Dose: 50 mg Sodium Chloride () 250 mls @ 15 mls/hr IV .[id number] PRN PRN Reason: SALINE FLUSH Last Admin: 11/28/18 18:49 Dose: 15 mls/hr Norepinephrine Bitartrate 8 mg (/ Dextrose) 258 mls @ 9.68 mls/hr IV .[id number] [facility] Last Admin: 11/30/18 05:35 Dose: 9.68 mls/hr Meropenem 500 mg/ Sodium (Chloride) 60 mls @ 100 mls/hr IV Q24H [facility] Last Admin: 11/29/18 17:04 Dose: 100 mls/hr Insulin Glargine (Lantus (Bkc)) 24 units SC MoWeFr@1000 [facility] Insulin Glargine (Lantus (Bkc)) 16 units SC SuTuTh@1000 [facility] Last Admin: 11/29/18 11:50 Dose: 16 units Insulin Human Lispro (Humalog Kwikpen (Bkc)) 0 unit SC ACHS [facility]; Protocol Lactic Acid (Lac-Hydrin, Amlactin) 1 applic TOPICAL BID [facility]; Protocol Last Admin: 11/30/18 10:36 Dose: 1 applicatio Metoclopramide HCl (Reglan) 10 mg PO BID [facility] Last Admin: 11/29/18 22:13 Dose: Not Given Ondansetron HCl (Zofran) 4 mg IV Q6H PRN PRN PRN Reason: NAUSEA/VOMITING Last Admin: 11/29/18 10:08 Dose: 4 mg Pantoprazole Sodium (Protonix) 40 mg PO BID [facility] Sodium Chloride () 5 - 15 ml IV UD PRN PRN Reason: SALINE FLUSH Last Admin: 11/30/18 00:02 Dose: 10 ml Medical Necessity - Tobacco Use Smoking Status: Former smoker Assessment/Plan Patient is a 78-year-old lady with multiple comorbidities including end-stage renal disease on dialysis presented to the emergency department apparently following a fall without loss of consciousness. Patient was found to be hypotensive on arrival and assessment of septic shock without etiology made admitted to the intensive care unit for resuscitation 1. Septic shock of undetermined etiology patient remains on broad-spectrum antibiotic therapy with cefepime as well as vancomycin in addition to norepinephrine titrated to keep map greater than 65. Patient cultures obtained on admission have so far remained negative to date. Stool for C. difficile pending. Chest x-ray obtained on admission demonstrated Blunting of the left costophrenic angle with findings suggestive of scarring at the left lung base. CT of the abdomen and pelvis with contrast performed on 09/28/2019 demonstrated Nonspecific acute inflammatory bowel disease involving the descending colon with trace of free fluid in the paracolic gutter and pelvis There are also diverticular changes within the descending and sigmoid colon however due to the length of the involved segment of inflamed bowel diverticulitis is less likely to be etiology 2. End-stage renal disease on hemodialysis on M,W,F 3. Hypertension antihypertensives on hold in view of patient presenting with septic shock 4. Diabetes mellitus type 2 oral agents held please and Accu-Cheks before meals and at bedtime with sliding scale coverage into continuation of patient long-acting insulin 5. Paroxysmal atrial fibrillation patient is on amiodarone for rate control as well as systemic anticoagulation with Eliquis 2. CAD with previous 9 stent placement 7. Ischemic cardiomyopathy status post AICD placement 8. Dyslipidemia-patient is on statin therapy, continued at home dose 9. Chronic hypoxic respiratory failure patient is on baseline home O2 at his ECF 10. Elevated troponin secondary to demand ischemia 11. DVT prophylaxis on Eliquis Clinical Impression(s) from Imaging Studies Abdomen/Pelvis CT 11/29/18 08:50 IMPRESSION: Nonspecific acute inflammatory bowel disease involving the descending colon with trace of free fluid in the paracolic gutter and pelvis There are also diverticular changes within the descending and sigmoid colon however due to the length of the involved segment of inflamed bowel diverticulitis is less likely to be etiology. Electronically Signed: Kevin Garzon MD at 16:57 EST , Service support , Code Visit Inpatient E&M: 10811 Subs Hosp L3
--- NOTE | 2018-11-30 11:16 | PN_ITS ---
Subjective: Patient seen remains on ICU vasopressin as being weaned off remains on Levophed. Her diagnostic workup with regards to infectious etiology for patient sepsis so far negative to date. Objective: GENERAL: Lethargic but arousable HEENT: Atraumatic; moist oral mucosa EYES; Anicteric, Normal Conjunctiva NECK; supple, normal thyroid, RESPIRATORY: Diminished to auscultation bilaterally, CARDIOVASCULAR: Regular S1 S2, no audible murmurs GI: soft, non-tender, normoactive bowel sounds, : No Renal angle tenderness; EXTREMITIES: Cool to touch. MUSCULOSKELETAL: No Joint Tenderness; NEURO: Awake; no lateralizing signs. SKIN: Stasis dermatitis involving both lower extremities PSYCH; flat affect Vitals/I&O's: Vital Signs Temp Pulse Resp BP Pulse Ox 97.4 F L 60 12 130/57 H 97 11/30/18 08:00 11/30/18 11:00 11/30/18 11:00 11/30/18 11:00 11/30/18 11:00 Oxygen Flow Rate (L/min) 4 Oxygen Delivery Method Nasal Cannula Weight: 97.2 kg Body Mass Index (BMI) 30.4 Finger Stick Blood Glucose 126 Intake and Output for Last 24 Hours 11/28/18 11/29/18 11/30/18 23:59 23:59 23:59 Intake Total 4079.2 / 4079.2 3252 / 3252 828.3 / 828.3 Output Total 120 / 120 80 / 80 Balance 4067.2 / 4067.2 3132 / 3132 748.3 / 748.3 Microbiology Past 72 Hours 11/29/18 10:45 Mucosa - Nasopharyngeal Respiratory Panel (PCR) - Final 11/28/18 12:35 Stool Enteric Bacteriology - Final 11/28/18 12:35 Stool Stool Occult Blood (FIORELLA) - Final Occult Blood Positive 11/28/18 12:35 Stool C. difficile DNA Amplification - Final Laboratory Results 11/29/18 03:40: Diff Path Review Reviewed 11/29/18 11:43: POC Glucose 189 H 11/29/18 17:00: Hgb 10.4 L, Hct 32.6 L 11/29/18 17:01: POC Glucose 219 H 11/30/18 00:00: POC Glucose 193 H 11/30/18 04:25: WBC 18.4 H, RBC 3.11 L, Hgb 9.8 L, Hct 31.1 L, MCV 100.0 H, MCH 31.5, MCHC 31.5 L, RDW 14.4, RDW Differential 50.5 H, Plt Count 138 L, MPV 8.9, Immature Gran % (Auto) 0.200, Neut % (Auto) 91.0 H, Lymph % (Auto) 3.5 L, [place] % (Auto) 5.2, Eos % (Auto) 0.0, Baso % (Auto) 0.1, Absolute Neuts (auto) 16.7 H, Absolute Lymphs (auto) 0.64 L, Total Counted Not Reportable 11/30/18 04:25: Sodium 138, Potassium 5.2 H, Chloride 104, Carbon Dioxide 22.0, Anion Gap 12, BUN 62 H, Creatinine 6.69 H, Estim Creat Clear Calc 7.10, Est GFR (MDRD) Af Amer 8 L, Est GFR (MDRD) Non-Af 6 L, BUN/Creatinine Ratio 9.3 L, Glucose 193 H, Calcium 7.6 L, Phosphorus 7.2 H, Magnesium 2.2 11/30/18 05:36: POC Glucose 177 H Current Medications Acetaminophen (Tylenol) 650 mg PO Q6H PRN PRN PRN Reason: fever >100.4 Last Admin: 11/29/18 03:19 Dose: 650 mg Amiodarone HCl (Cordarone) 200 mg PO DAILY [facility] Apixaban (Eliquis) 2.5 mg PO BID [facility] Hydrocortisone Sodium Succinate (Solu-Cortef) 50 mg IV Q6 [facility] Last Admin: 11/30/18 05:37 Dose: 50 mg Sodium Chloride () 250 mls @ 15 mls/hr IV .[id number] PRN PRN Reason: SALINE FLUSH Last Admin: 11/28/18 18:49 Dose: 15 mls/hr Norepinephrine Bitartrate 8 mg (/ Dextrose) 258 mls @ 9.68 mls/hr IV .[id number] [facility] Last Admin: 11/30/18 05:35 Dose: 9.68 mls/hr Meropenem 500 mg/ Sodium (Chloride) 60 mls @ 100 mls/hr IV Q24H [facility] Last Admin: 11/29/18 17:04 Dose: 100 mls/hr Insulin Glargine (Lantus (Bkc)) 24 units SC MoWeFr@1000 [facility] Insulin Glargine (Lantus (Bkc)) 16 units SC SuTuTh@1000 [facility] Last Admin: 11/29/18 11:50 Dose: 16 units Insulin Human Lispro (Humalog Kwikpen (Bkc)) 0 unit SC ACHS [facility]; Protocol Lactic Acid (Lac-Hydrin, Amlactin) 1 applic TOPICAL BID [facility]; Protocol Last Admin: 11/30/18 10:36 Dose: 1 applicatio Metoclopramide HCl (Reglan) 10 mg PO BID [facility] Last Admin: 11/29/18 22:13 Dose: Not Given Ondansetron HCl (Zofran) 4 mg IV Q6H PRN PRN PRN Reason: NAUSEA/VOMITING Last Admin: 11/29/18 10:08 Dose: 4 mg Pantoprazole Sodium (Protonix) 40 mg PO BID [facility] Sodium Chloride () 5 - 15 ml IV UD PRN PRN Reason: SALINE FLUSH Last Admin: 11/30/18 00:02 Dose: 10 ml Medical Necessity - Tobacco Use Smoking Status: Former smoker Assessment/Plan Patient is a 78-year-old lady with multiple comorbidities including end-stage renal disease on dialysis presented to the emergency department apparently following a fall without loss of consciousness. Patient was found to be hypotensive on arrival and assessment of septic shock without etiology made admitted to the intensive care unit for resuscitation 1. Septic shock of undetermined etiology patient remains on broad-spectrum antibiotic therapy with cefepime as well as vancomycin in addition to norepinephrine titrated to keep map greater than 65. Patient cultures obtained on admission have so far remained negative to date. Stool for C. difficile pending. Chest x-ray obtained on admission demonstrated Blunting of the left costophrenic angle with findings suggestive of scarring at the left lung base. CT of the abdomen and pelvis with contrast performed on 09/28/2019 demonstrated Nonspecific acute inflammatory bowel disease involving the descending colon with trace of free fluid in the paracolic gutter and pelvis There are also div erticular changes within the descending and sigmoid colon however due to the length of the involved segment of inflamed bowel diverticulitis is less likely to be etiology 2. End-stage renal disease on hemodialysis on M,W,F 3. Hypertension antihypertensives on hold in view of patient presenting with septic shock 4. Diabetes mellitus type 2 oral agents held please and Accu-Cheks before meals and at bedtime with sliding scale coverage into continuation of patient long- acting insulin 5. Paroxysmal atrial fibrillation patient is on amiodarone for rate control as well as systemic anticoagulation with Eliquis 2. CAD with previous 9 stent placement 7. Ischemic cardiomyopathy status post AICD placement 8. Dyslipidemia-patient is on statin therapy, continued at home dose 9. Chronic hypoxic respiratory failure patient is on baseline home O2 at his ECF 10. Elevated troponin secondary to demand ischemia 11. DVT prophylaxis on Eliquis Clinical Impression(s) from Imaging Studies Abdomen/Pelvis CT 11/29/18 08:50 IMPRESSION: Nonspecific acute inflammatory bowel disease involving the descending colon with trace of free fluid in the paracolic gutter and pelvis There are also diverticular changes within the descending and sigmoid colon however due to the length of the involved segment of inflamed bowel diverticulitis is less likely to be etiology. Electronically Signed: Kevin Garzon MD at 16:57 EST , Service support , Code Visit Inpatient E&M: 28757 Subs Hosp L3
--- NOTE | 2018-11-30 11:51 | CASEMGMT ---
Health Care Power of [employer] is under summary section of chart naming Pratima Soliman. [facility]osen not to complete Living Will. TAMELA Guillermo
[2018-11-30] MEDS: Heparin 10,000 UNITS/10 ML Vial IV (14:51)
[2018-11-30] MEDS: Amiodarone 200 MG Tablet PO (14:52)
[2018-11-30] MEDS: Metoclopramide 10 MG Tablet PO ×2 (14:53→21:20)
[2018-11-30] MEDS: Pantoprazole Sodium 40 MG Tablet PO ×2 (14:53→21:20)
[2018-11-30] MEDS: APIXABAN 2.5 MG TABLET PO ×2 (14:53→21:19)
[2018-11-30 15:10] LABS: Bedside Glucose 121 mg/dL (70-110)
--- NOTE | 2018-11-30 16:53 | PN.RENAL_ITS ---
Subjective: Following for ESRD. Pt feels better. Still on pressor but weaning. No CP. No increasing SOB. Edema is stable. - Physical Exam General: Alert, Oriented x3 HEENT: Atraumatic, EOMI Oral: Moist Mucosa Neck: Supple Lungs: Clear to auscultation - anteriorly Cardiovascular: Normal S1, Normal S2, No murmurs Abdomen: Bowel Sounds Present, Soft, Non Tender Extremities: Edema - 1+ LE Vital Signs Temp Pulse Resp BP Pulse Ox 98.1 F 64 19 H 114/45 L 99 11/30/18 16:00 11/30/18 16:15 11/30/18 16:15 11/30/18 16:15 11/30/18 16:15 Oxygen Flow Rate (L/min) 4 Oxygen Delivery Method Nasal Cannula Weight: 97.2 kg Body Mass Index (BMI) 30.4 Finger Stick Blood Glucose 126 Intake and Output for Last 24 Hours 11/28/18 11/29/18 11/30/18 23:59 23:59 23:59 Intake Total 4079.2 / 4079.2 3252 / 3252 853.3 / 853.3 Output Total 120 / 120 820 / 820 Balance 4067.2 / 4067.2 3132 / 3132 33.3 / 33.3 Microbiology Past 72 Hours 11/28/18 14:04 Blood Culture - Preliminary Blood Culture (Wb) - No Site/Description Given No growth in 48 hours. 11/28/18 10:48 Blood Culture - Preliminary Blood Culture (Wb) - Left Hand No growth in 48 hours. 11/29/18 10:45 Respiratory Panel (PCR) - Final Mucosa - Nasopharyngeal 11/28/18 12:35 Enteric Bacteriology - Final Stool 11/28/18 12:35 Stool Occult Blood (FIORELLA) - Final Stool Occult Blood Positive 11/28/18 12:35 C. difficile DNA Amplification - Final Stool Laboratory Tests Past 24 Hrs 11/29/18 11/30/18 11/30/18 17:00 04:25 04:25 WBC 18.4 H RBC 3.11 L Hgb 10.4 L 9.8 L Hct 32.6 L 31.1 L MCV 100.0 H MCH 31.5 MCHC 31.5 L RDW 14.4 RDW Differential 50.5 H Plt Count 138 L MPV 8.9 Immature Gran % (Auto) 0.200 Neut % (Auto) 91.0 H Lymph % (Auto) 3.5 L [place] % (Auto) 5.2 Eos % (Auto) 0.0 Baso % (Auto) 0.1 Absolute Neuts (auto) 16.7 H Absolute Lymphs (auto) 0.64 L Total Counted Not Reportable Sodium 138 Potassium 5.2 H Chloride 104 Carbon Dioxide 22.0 Anion Gap 12 BUN 62 H Creatinine 6.69 H Estim Creat Clear Calc 7.10 Est GFR (MDRD) Af Amer 8 L Est GFR (MDRD) Non-Af 6 L BUN/Creatinine Ratio 9.3 L Glucose 193 H Calcium 7.6 L Phosphorus 7.2 H Magnesium 2.2 POC Glucose 11/30/18 11/30/18 11/30/18 14:57 05:36 00:00 POC Glucose 121 H 177 H 193 H 11/29/18 17:01 POC Glucose 219 H Medical Necessity - Tobacco Use Smoking Status: Former smoker Assessment/Plan 1. End stage renal disease. Dialysis at [facility] on Wednesday, Wednesday, and Wednesday as outpatient. Dialyzed eralier today. Cannot take much fluid off because of hypotension. Will assess daily. Next HD anticipated on 12/02/18. 2. Shock. Likely septic but cultures negative to date. Pressor weaning. Antibiotics as per ID service. Follow up on blood and urine culture. Tunnel portion of dialysis catheter is not erythematous or painful. 3. Anemia. Hemoglobin is 9.8 today. Follow. Continue WILLY with HD. Follow Hgb. 4. SHPT. Pt is hyperphosphatemia. Will start phos binder and monitor ca/phos. 5. Hyperkalemia. Mild at 5.2. Was dialyzed. Recheck in am.
[2018-11-30 17:21] LABS: Bedside Glucose 150 mg/dL (70-110)
[2018-11-30] MEDS: SEVELAMER CARBONATE 800 MG TABLET PO (18:08)
--- NOTE | 2018-11-30 20:13 | EKG12_ITS ---
Test Reason : CP Blood Pressure : / mmHG Vent. Rate : 062 BPM Atrial Rate : 060 BPM P-R Int : 000 ms QRS Dur : 190 ms QT Int : 536 ms P-R-T Axes : 000 -74 105 degrees QTc Int : 544 ms Ventricular-paced rhythm Abnormal ECG Confirmed by MIKE CERVANTES MD ([id number]), online content editor JASON OSORIO ([id number]) on 12/02/2018 9:30:33 AM Referred By: KEMAR Confirmed By:MIKE CERVANTES MD
[2018-11-30] MEDS: traMADol 50 MG Tablet PO (21:18)
[2018-11-30 21:36] LABS: Bedside Glucose 165 mg/dL (70-110)
[2018-11-30] MEDS: Ondansetron 4 MG/2 ML Vial IV (23:05)
[2018-12-01] VITALS (28 sets, daily range): BP systolic 104–138; BP diastolic 33–98; PULSE 60–73; RESP 11–20; TEMP 35.8–36.7; O2SAT 91–100
[2018-12-01] MEDS: Acetaminophen 325 MG Tablet 650 MG PO (03:01)
[2018-12-01 04:23] LABS: Albumin, Serum 1.9 g/dL (3.2-5.0); BUN 33 mg/dL (7-18); BUN/Creat Ratio 7.9 RATIO (10-20); Calcium,Total 7.9 mg/dL (8.5-10.1); Chloride 103 mmol/L (98-107); Creatinine, Serum 4.17 mg/dL (0.55-1.02); EST Glomerular Filtration Rate 11 mL/min (>60); Est Glom Filt Rate - Afr Amer 13 mL/min (>60); Glucose 123 mg/dL (74-106); Potassium 4.3 mmol/L (3.5-5.1); Sodium Level 140 mmol/L (136-145)
[2018-12-01] MEDS: Hydrocortisone Sod Succinate 100 MG/2 ML Vial 50 MG IV ×2 (05:49→22:53)
--- NOTE | 2018-12-01 07:00 | PCM.PN.INT ---
Subjective: The patient was seen and examined at the bedside this morning. Events from the last 24 hours have been reviewed. The patient is currently afebrile, hemodynamically stable and maintaining appropriate oxygen saturations on 4 L/min via nasal cannula. The patient is no longer requiring Levophed to maintain hemodynamic stability. The patient did tolerate dialysis yesterday with plans for her next session to occur on the . Nursing staff did report that the patient was complaining of not being able to sleep overnight and has now developed anxiety. She does report mild abdominal pain this morning, similar to previous. She did tolerate p.o. intake yesterday. Objective: The patient's most recent lab work, culture data and imaging studies have all been personally reviewed. Respiratory viral panel was negative. Blood and urine cultures have shown no growth to date. C. difficile was negative. Enteric panel was negative. Stool for occult blood was positive. Surface echocardiogram from April 2018 revealed mild concentric LVH with an ejection fraction of 55%. Right ventricular systolic pressure was estimated to be [address] abdomen/pelvis with contrast revealed nonspecific inflammatory bowel disease involving the descending colon along with scattered diverticular changes within the descending and sigmoid colon. General: Alert, Oriented x3, Cooperative, No apparent distress HEENT: Atraumatic, PERRLA, Normocephalic Oral: No Gingival or Mucosal Lesions/ Ulcerations Neck: Supple, No Nodes, Trachea Midline, - - Right tunneled dialysis catheter and left triple-lumen catheter remain in place. Lungs: No rhonchi, No wheeze, No rales, Diminished Cardiovascular: Regular rate, Regular Rhythm, Normal S1, Normal S2, No murmurs Abdomen: Bowel Sounds Present, Soft, Non Tender, Obese Extremities: No clubbing, No cyanosis, Edema Skin: - - No significant change from previous Musculoskeletal: No Tenderness to Palpation of Joints or Extremities, No Muscle Wasting Lymphatic: No Cervical, Supraclavicular, or Inguinal Adenopathy Neurological: Neuro grossly intact Psych/Mental Status: Normal Affect, Appropriate Vital Signs Temp Pulse Resp BP Pulse Ox 36.1 C L 64 16 131/59 H 100 12/01/18 04:00 12/01/18 06:00 12/01/18 06:00 12/01/18 06:00 12/01/18 06:00 Oxygen Flow Rate (L/min) 4 Oxygen Delivery Method Nasal Cannula Weight: 213 lb 13.574 oz Body Mass Index (BMI) 30.4 Finger Stick Blood Glucose 126 Intake and Output for Last 24 Hours 11/29/18 11/30/18 12/01/18 23:59 23:59 23:59 Intake Total 3252 / 3252 1191.3 / 1191.3 295 / 295 Output Total 120 / 120 1535 / 1535 60 / 60 Balance 3132 / 3132 -343.7 / -343.7 235 / 235 Labs (Last 48 Hours) 11/29/18 11/29/18 11/29/18 03:40 07:51 11:43 WBC RBC Hgb Hct MCV MCH MCHC RDW RDW Differential Plt Count MPV Immature Gran % (Auto) Neut % (Auto) Lymph % (Auto) [place] % (Auto) Eos % (Auto) Baso % (Auto) Absolute Neuts (auto) Absolute Lymphs (auto) Total Counted Diff Path Review Reviewed Sodium Potassium Chloride Carbon Dioxide Anion Gap BUN Creatinine Estim Creat Clear Calc Est GFR (MDRD) Af Amer Est GFR (MDRD) Non-Af BUN/Creatinine Ratio Glucose Calcium Phosphorus Magnesium Albumin POC Glucose 152 H 189 H 11/29/18 11/29/18 11/30/18 17:00 17:01 00:00 WBC RBC Hgb 10.4 L Hct 32.6 L MCV MCH MCHC RDW RDW Differential Plt Count MPV Immature Gran % (Auto) Neut % (Auto) Lymph % (Auto) [place] % (Auto) Eos % (Auto) Baso % (Auto) Absolute Neuts (auto) Absolute Lymphs (auto) Total Counted Diff Path Review Sodium Potassium Chloride Carbon Dioxide Anion Gap BUN Creatinine Estim Creat Clear Calc Est GFR (MDRD) Af Amer Est GFR (MDRD) Non-Af BUN/Creatinine Ratio Glucose Calcium Phosphorus Magnesium Albumin POC Glucose 219 H 193 H 11/30/18 11/30/18 11/30/18 04:25 04:25 05:36 WBC 18.4 H RBC 3.11 L Hgb 9.8 L Hct 31.1 L MCV 100.0 H MCH 31.5 MCHC 31.5 L RDW 14.4 RDW Differential 50.5 H Plt Count 138 L MPV 8.9 Immature Gran % (Auto) 0.200 Neut % (Auto) 91.0 H Lymph % (Auto) 3.5 L [place] % (Auto) 5.2 Eos % (Auto) 0.0 Baso % (Auto) 0.1 Absolute Neuts (auto) 16.7 H Absolute Lymphs (auto) 0.64 L Total Counted Not Reportable Diff Path Review Sodium 138 Potassium 5.2 H Chloride 104 Carbon Dioxide 22.0 Anion Gap 12 BUN 62 H Creatinine 6.69 H Estim Creat Clear Calc 7.10 Est GFR (MDRD) Af Amer 8 L Est GFR (MDRD) Non-Af 6 L BUN/Creatinine Ratio 9.3 L Glucose 193 H Calcium 7.6 L Phosphorus 7.2 H Magnesium 2.2 Albumin POC Glucose 177 H 11/30/18 11/30/18 11/30/18 14:57 17:13 21:25 WBC RBC Hgb Hct MCV MCH MCHC RDW RDW Differential Plt Count MPV Immature Gran % (Auto) Neut % (Auto) Lymph % (Auto) [place] % (Auto) Eos % (Auto) Baso % (Auto) Absolute Neuts (auto) Absolute Lymphs (auto) Total Counted Diff Path Review Sodium Potassium Chloride Carbon Dioxide Anion Gap BUN Creatinine Estim Creat Clear Calc Est GFR (MDRD) Af Amer Est GFR (MDRD) Non-Af BUN/Creatinine Ratio Glucose Calcium Phosphorus Magnesium Albumin POC Glucose 121 H 150 H 165 H 12/01/18 03:55 WBC RBC Hgb Hct MCV MCH MCHC RDW RDW Differential Plt Count MPV Immature Gran % (Auto) Neut % (Auto) Lymph % (Auto) [place] % (Auto) Eos % (Auto) Baso % (Auto) Absolute Neuts (auto) Absolute Lymphs (auto) Total Counted Diff Path Review Sodium 140 Potassium 4.3 Chloride 103 Carbon Dioxide 27.0 Anion Gap BUN 33 H Creatinine 4.17 H Estim Creat Clear Calc 11.40 Est GFR (MDRD) Af Amer 13 L Est GFR (MDRD) Non-Af 11 L BUN/Creatinine Ratio 7.9 L Glucose 123 H Calcium 7.9 L Phosphorus 5.0 H Magnesium Albumin 1.9 L POC Glucose Microbiology 11/28/18 14:04 Blood Culture (Wb) - No Site/Description Given Blood Culture - Preliminary No growth in 48 hours. 11/28/18 10:48 Blood Culture (Wb) - Left Hand Blood Culture - Preliminary No growth in 48 hours. 11/29/18 10:45 Mucosa - Nasopharyngeal Respiratory Panel (PCR) - Final 11/28/18 12:35 Stool Enteric Bacteriology - Final 11/28/18 12:35 Stool Stool Occult Blood (FIORELLA) - Final Occult Blood Positive Clinical Impression(s) from Imaging Studies Brain CT 11/28/18 10:21 IMPRESSION: Chronic involutional changes of the brain. Electronically Signed: Demario Jha DO at 12:53 EST Tel , Service support , Chest X-Ray 11/28/18 12:03 IMPRESSION: Blunting of the left costophrenic angle with findings suggestive of scarring at the left lung base. Electronically Signed: Antonio Pascual MD at 14:28 EST , Service support , Pelvis X-Ray 11/28/18 12:07 IMPRESSION: No acute findings Electronically Signed: Demario Jha DO at 12:41 EST Tel , Service support , Chest X-Ray 11/28/18 18:08 IMPRESSION: Small left pleural effusion and left lower lobe atelectasis. No evidence for pneumothorax status post central line placement Electronically Signed: Kevin Garzon MD at 19:10 EST , Service support , Abdomen/Pelvis CT 11/29/18 08:50 IMPRESSION: Nonspecific acute inflammatory bowel disease involving the descending colon with trace of free fluid in the paracolic gutter and pelvis There are also diverticular changes within the descending and sigmoid colon however due to the length of the involved segment of inflamed bowel diverticulitis is less likely to be etiology. Electronically Signed: Kevin Garzon MD at 16:57 EST , Service support , Medical Necessity - Tobacco Use Smoking Status: Former smoker Assessment/Plan RECOMMENDATIONS: 1. Okay to remove arterial line. 2. We will begin to wean stress dose steroids today. 3. Continue antibiotics for an additional 2 days. 4. Plans for dialysis tomorrow. 5. Wean supplemental oxygen as tolerated and encourage incentive spirometer use. 6. Mobilize patient as tolerated. Physical therapy to work with patient. 7. Continue to monitor blood counts daily. 8. Continue Eliquis and amiodarone as ordered. IMPRESSIONS: 1. Septic shock with unclear source of infection Resolved. The patient initially presented to the emergency department with significant hypotension which was presumed to be secondary to hypovolemia. The patient received IV fluid resuscitation and was noted to have an elevated lactate level. In addition, she did have an elevated white blood cell count. While no antibiotics were initiated in the emergency department, they were subsequently started upon arrival to the medical intensive care unit. Since that time, the patient has improved slowly from a clinical perspective. Although no exact source of infection has ever been identified, the patient appears to have responded to antibiotics, volume expansion and vasopressor support. She is no longer requiring vasopressor support and remains hemodynamically stable. Therefore, we will plan to continue antibiotics for an additional 2 days. At this time, her stress dose steroids will also begin to be weaned. 2. Troponin elevation/history of coronary artery disease status post CABG/atrial fibrillation Potentially related to #1. Most likely secondary to demand ischemia in the setting of #1. 3. End-stage renal disease on hemodialysis Continue hemodialysis per nephrology recommendations. 4. Questionable COPD of unknown severity/chronic hypoxemic respiratory failure/questionable obstructive sleep apnea The patient has a questionable history of COPD and reportedly utilizes 2 L/min of supplemental oxygen at her baseline. In addition, she has a possible history of obstructive sleep apnea for which she is supposed to utilize nocturnal CPAP therapy. 5. Advanced age/questionable history of COPD/diabetic neuropathy/peripheral vascular disease/hypertension/hyperlipidemia Complicates care, management, recovery and prognosis. Physical therapy to continue to work with patient. 6. CODE STATUS Confirmed to be DNR CCA with intubation. This note was generated with [employer]oz[employer] software. It may contain incorrect words, spelling, and punctuation that were not noted in checking the note before signing. DISPOSITION: The patient is medically stable for transfer out of the intensive care unit. Code Visit Inpatient E&M: 97802 Subs Hosp L3
[2018-12-01 07:05] LABS: Bedside Glucose 117 mg/dL (70-110)
--- NOTE | 2018-12-01 07:13 | PCM.PN.HOSP ---
Subjective: Seen much more awake and communicative compared to the prior day. Patient has been weaned off pressors. She is complaining of lower abdominal pain. CT of the abdomen obtained on 11/29/2018 demonstrated Nonspecific acute inflammatory bowel disease involving the descending colon with trace of free fluid in the paracolic gutter and pelvis. Objective: GENERAL: in no acute distress HEENT: Atraumatic; moist oral mucosa EYES; Anicteric, Normal Conjunctiva NECK; supple, normal thyroid, RESPIRATORY: Diminished to auscultation bilaterally, CARDIOVASCULAR: Regular S1 S2, no audible murmurs GI: soft, non-tender, normoactive bowel sounds, : No Renal angle tenderness; EXTREMITIES: Cool to touch. MUSCULOSKELETAL: No Joint Tenderness; NEURO: Awake; no lateralizing signs. SKIN: Stasis dermatitis involving both lower extremities PSYCH; flat affect Vitals/I&O's: Vital Signs Temp Pulse Resp BP Pulse Ox 97.0 F L 64 16 131/59 H 100 12/01/18 04:00 12/01/18 06:00 12/01/18 06:00 12/01/18 06:00 12/01/18 06:00 Oxygen Flow Rate (L/min) 4 Oxygen Delivery Method Nasal Cannula Weight: 97 kg Body Mass Index (BMI) 30.4 Finger Stick Blood Glucose 126 Intake and Output for Last 24 Hours 11/29/18 11/30/18 12/01/18 23:59 23:59 23:59 Intake Total 3252 / 3252 1191.3 / 1191.3 295 / 295 Output Total 120 / 120 1535 / 1535 60 / 60 Balance 3132 / 3132 -343.7 / -343.7 235 / 235 Microbiology Past 72 Hours 11/28/18 14:04 Blood Culture (Wb) - No Site/Description Given Blood Culture - Preliminary No growth in 48 hours. 11/28/18 10:48 Blood Culture (Wb) - Left Hand Blood Culture - Preliminary No growth in 48 hours. 11/29/18 10:45 Mucosa - Nasopharyngeal Respiratory Panel (PCR) - Final 11/28/18 12:35 Stool Enteric Bacteriology - Final 11/28/18 12:35 Stool Stool Occult Blood (FIORELLA) - Final Occult Blood Positive 11/28/18 12:35 Stool C. difficile DNA Amplification - Final Laboratory Results 11/30/18 14:57: POC Glucose 121 H 11/30/18 17:13: POC Glucose 150 H 11/30/18 21:25: POC Glucose 165 H 12/01/18 03:55: Sodium 140, Potassium 4.3, Chloride 103, Carbon Dioxide 27.0, BUN 33 H, Creatinine 4.17 H, Estim Creat Clear Calc 11.40, Est GFR (MDRD) Af Amer 13 L, Est GFR (MDRD) Non-Af 11 L, BUN/Creatinine Ratio 7.9 L, Glucose 123 H, Calcium 7.9 L, Phosphorus 5.0 H, Albumin 1.9 L 12/01/18 06:49: POC Glucose 117 H Current Medications Acetaminophen (Tylenol) 650 mg PO Q6H PRN PRN PRN Reason: fever >100.4, Pain Last Admin: 12/01/18 03:01 Dose: 650 mg Amiodarone HCl (Cordarone) 200 mg PO DAILY [facility] Last Admin: 11/30/18 14:52 Dose: 200 mg Apixaban (Eliquis) 2.5 mg PO BID [facility] Last Admin: 11/30/18 21:19 Dose: 2.5 mg Epoetin Joe (Procrit) 5,000 units IV MoWeFr [facility] Last Admin: 11/30/18 14:51 Dose: 5,000 u Hydrocortisone Sodium Succinate (Solu-Cortef) 50 mg IV Q6 [facility] Last Admin: 12/01/18 05:49 Dose: 50 mg Sodium Chloride () 250 mls @ 15 mls/hr IV .[id number] PRN PRN Reason: SALINE FLUSH Last Admin: 11/28/18 18:49 Dose: 15 mls/hr Meropenem 500 mg/ Sodium (Chloride) 60 mls @ 100 mls/hr IV Q24H [facility] Last Admin: 11/30/18 15:02 Dose: 100 mls/hr Norepinephrine Bitartrate 8 mg (/ Dextrose) 258 mls @ 9.68 mls/hr IV .[id number] [facility] Last Admin: 11/30/18 16:54 Dose: Not Given Insulin Glargine (Lantus (Bkc)) 24 units SC MoWeFr@1000 [facility] Last Admin: 11/30/18 14:58 Dose: 24 u Insulin Glargine (Lantus (Bkc)) 16 units SC SuTuTh@1000 [facility] Last Admin: 11/29/18 11:50 Dose: 16 units Insulin Human Lispro (Humalog Kwikpen (Bkc)) 0 unit SC ACHS [facility]; Protocol Last Admin: 11/30/18 21:26 Dose: 1 u Lactic Acid (Lac-Hydrin, Amlactin) 1 applic TOPICAL BID [facility]; Protocol Last Admin: 11/30/18 21:27 Dose: 1 applicatio Metoclopramide HCl (Reglan) 10 mg PO BID [facility] Last Admin: 11/30/18 21:20 Dose: 10 mg Ondansetron HCl (Zofran) 4 mg IV Q6H PRN PRN PRN Reason: NAUSEA/VOMITING Last Admin: 11/30/18 23:05 Dose: 4 mg Pantoprazole Sodium (Protonix) 40 mg PO BID [facility] Last Admin: 11/30/18 21:20 Dose: 40 mg Sevelamer Carbonate (Renvela) 800 mg PO TIDCM [facility] Last Admin: 11/30/18 18:08 Dose: 800 mg Sodium Chloride () 5 - 15 ml IV UD PRN PRN Reason: SALINE FLUSH Last Admin: 11/30/18 23:05 Dose: 10 ml Tramadol HCl (Ultram) 50 mg PO TID PRN PRN PRN Reason: MODERATE PAIN (4-5/10) Last Admin: 11/30/18 21:18 Dose: 50 mg Medical Necessity - Tobacco Use Smoking Status: Former smoker Assessment/Plan Patient is a 78-year-old lady with multiple comorbidities including end-stage renal disease on dialysis presented to the emergency department apparently following a fall without loss of consciousness. Patient was found to be hypotensive on arrival and assessment of septic shock without etiology made admitted to the intensive care unit for resuscitation 1. Septic shock of undetermined etiology patient remains on broad-spectrum antibiotic therapy with cefepime as well as vancomycin in addition to norepinephrine titrated to keep map greater than 65. Patient cultures obtained on admission have so far remained negative to date. Stool for C. difficile pending. Chest x-ray obtained on admission demonstrated Blunting of the left costophrenic angle with findings suggestive of scarring at the left lung base. CT of the abdomen and pelvis with contrast performed on 09/28/2019 demonstrated Nonspecific acute inflammatory bowel disease involving the descending colon with trace of free fluid in the paracolic gutter and pelvis There are also diverticular changes within the descending and sigmoid colon however due to the length of the involved segment of inflamed bowel diverticulitis is less likely to be etiology. She was weaned off pressors on the morning of 12/01/2018. 2. End-stage renal disease on hemodialysis on ,, 3. Hypertension antihypertensives on hold in view of patient presenting with septic shock 4. Diabetes mellitus type 2 oral agents held please and Accu-Cheks before meals and at bedtime with sliding scale coverage into continuation of patient long-acting insulin 5. Paroxysmal atrial fibrillation patient is on amiodarone for rate control as well as systemic anticoagulation with Eliquis 2. CAD with previous 9 stent placement 7. Ischemic cardiomyopathy status post AICD placement 8. Dyslipidemia-patient is on statin therapy, continued at home dose 9. Chronic hypoxic respiratory failure patient is on baseline home O2 at his ECF 10. Elevated troponin secondary to demand ischemia 11. DVT prophylaxis on Eliquis Code Visit Inpatient E&M: 01332 [facility] Hosp L3
[2018-12-01 08:11] LABS: Hemoglobin 9.3 g/dl (12.0-15.0); Mean Corp Hgb Conc 32.1 g/gl (32-36); Mean Corpuscular Hgb 31.4 pg (27.0-32.0); Mean Platelet Vol. 8.9 fl (6.2-12.0); Platelet Count 82 K/mm3 (150-450); RBC Distribution Width CV 14.9 % (11.6-14.6); Red Blood Count 2.96 M/mm3 (4.2-5.4); White Blood Count 11.1 K/mm3 (4.4-11.0)
[2018-12-01 08:12] LABS: Scan Indicated on CBC? Y/N NO
[2018-12-01] MEDS: traMADol 50 MG Tablet PO (09:12)
[2018-12-01] MEDS: Pantoprazole Sodium 40 MG Tablet PO ×2 (09:13→22:54)
[2018-12-01] MEDS: Metoclopramide 10 MG Tablet PO ×2 (09:13→22:54)
[2018-12-01] MEDS: Amiodarone 200 MG Tablet PO (09:15)
[2018-12-01] MEDS: APIXABAN 2.5 MG TABLET PO ×2 (09:15→22:55)
[2018-12-01] MEDS: SEVELAMER CARBONATE 800 MG TABLET PO ×3 (09:17→16:20)
[2018-12-01] MEDS: Ammonium Lactate 225 gm Bottle 1 APPLIC TOPICAL ×2 (09:18→22:54)
[2018-12-01 09:31] LABS: AST(SGOT) 23 U/L (15-37); Alanine Aminotransfer ALT/SGPT 17 U/L (13-56); Alkaline Phosphatase 73 U/L (45-117); Bilirubin, Direct 0.22 mg/dL (0.00-0.30); Globulin 3.8 g/dL (2.2-4.2); Lipase 68 U/L (73-393); Protein, Total 5.8 g/dL (6.4-8.2)
--- NOTE | 2018-12-01 11:32 | PCM.PN.REN ---
Subjective: Pt is doing well. No nausea No vomiting. Still has diarrhea. She is complaining of lower abdominal pain - Physical Exam General: Alert, Oriented x3 HEENT: Atraumatic Oral: Moist Mucosa Neck: Supple, No JVD Lungs: Clear to auscultation, Normal air movement, No rhonchi, No wheeze Cardiovascular: Regular rate, Regular Rhythm, Normal S1, Normal S2 Abdomen: Bowel Sounds Present, Soft, Tender - lower abdomen Extremities: No clubbing, No cyanosis, Edema - trace edema of LE Neurological: Cranial nerves II-XII grossly intact, Neuro grossly intact Psych/Mental Status: Normal Affect Vital Signs Temp Pulse Resp BP Pulse Ox 97 F L 72 20 H 106/33 L 96 12/01/18 10:00 12/01/18 10:00 12/01/18 10:00 12/01/18 10:00 12/01/18 10:00 Oxygen Flow Rate (L/min) 4 Oxygen Delivery Method Nasal Cannula Weight: 97 kg Body Mass Index (BMI) 30.4 Finger Stick Blood Glucose 117 Intake and Output for Last 24 Hours 11/29/18 11/30/18 12/01/18 23:59 23:59 23:59 Intake Total 3252 / 3252 1191.3 / 1191.3 295 / 295 Output Total 120 / 120 1535 / 1535 60 / 60 Balance 3132 / 3132 -343.7 / -343.7 235 / 235 Microbiology Past 72 Hours 11/29/18 03:45 Urine Culture - Final Urine Catheter - Vincent Culture exhibits no growth. 11/28/18 14:04 Blood Culture - Preliminary Blood Culture (Wb) - No Site/Description Given No growth in 48 hours. 11/28/18 10:48 Blood Culture - Preliminary Blood Culture (Wb) - Left Hand No growth in 48 hours. 11/29/18 10:45 Respiratory Panel (PCR) - Final Mucosa - Nasopharyngeal 11/28/18 12:35 Enteric Bacteriology - Final Stool 11/28/18 12:35 Stool Occult Blood (FIORELLA) - Final Stool Occult Blood Positive 11/28/18 12:35 C. difficile DNA Amplification - Final Stool Laboratory Tests Past 24 Hrs 12/01/18 12/01/18 12/01/18 03:55 08:00 09:05 WBC 11.1 H RBC 2.96 L Hgb 9.3 L Hct 29.0 L MCV 98.0 MCH 31.4 MCHC 32.1 RDW 14.9 H RDW Differential 53.0 H Plt Count 82 L MPV 8.9 Sodium 140 Potassium 4.3 Chloride 103 Carbon Dioxide 27.0 BUN 33 H Creatinine 4.17 H Estim Creat Clear Calc 11.40 Est GFR (MDRD) Af Amer 13 L Est GFR (MDRD) Non-Af 11 L BUN/Creatinine Ratio 7.9 L Glucose 123 H Calcium 7.9 L Phosphorus 5.0 H Total Bilirubin 0.40 Direct Bilirubin 0.22 AST 23 ALT 17 Alkaline Phosphatase 73 Total Protein 5.8 L Albumin 1.9 L 2.0 L Globulin 3.8 Lipase 68 L POC Glucose 12/01/18 11/30/18 11/30/18 06:49 21:25 17:13 POC Glucose 117 H 165 H 150 H 11/30/18 14:57 POC Glucose 121 H Medical Necessity - Tobacco Use Smoking Status: Former smoker Assessment/Plan 1-stage renal disease on Wednesday hemodialysis schedule. Last HD session 11/30 with 1.4 L UF No need for HD session today Next HD session tomorrow with UF to EDW 2-Septic shock. Better. Off pressors Abx as per ID/primary service 3-anemia: Continue WILLY as per the chronic HD order 4- BMD: Continue sevelamer TID with meals. P improved. P level today 5.0 Renal team will continue to follow Please call with any question or concern. Jonna Martin MD [phone]
[2018-12-01 11:41] LABS: Bedside Glucose 145 mg/dL (70-110)
[2018-12-01] MEDS: Acetaminophen 500 MG Tablet 1000 MG PO (16:20)
[2018-12-01 16:30] LABS: Bedside Glucose 136 mg/dL (70-110)
[2018-12-01] MEDS: 0.9% NaCl Peripheral Flush Adult/Peds IV (22:53)
[2018-12-01 23:06] LABS: Bedside Glucose 122 mg/dL (70-110)
[2018-12-02] VITALS (9 sets, daily range): BP systolic 125–154; BP diastolic 43–79; PULSE 60–64; RESP 10–23; TEMP 36.1–36.6; O2SAT 97–100
[2018-12-02] MEDS: 0.9% NaCl Peripheral Flush Adult/Peds IV ×2 (04:55→04:56)
[2018-12-02 05:04] LABS: Hematocrit 30.1 % (37-47); Hemoglobin 9.5 g/dl (12.0-15.0); Mean Corp Hgb Conc 31.6 g/gl (32-36); Mean Corpuscular Hgb 31.3 pg (27.0-32.0); Platelet Count 69 K/mm3 (150-450); RBC Distribution Width SD 54.8 fl (35.1-43.9); Red Blood Count 3.04 M/mm3 (4.2-5.4); White Blood Count 8.4 K/mm3 (4.4-11.0)
[2018-12-02 05:06] LABS: Scan Indicated on CBC? Y/N NO
[2018-12-02 05:18] LABS: Anion Gap 10 (5-15); BUN 47 mg/dL (7-18); Calcium,Total 8.4 mg/dL (8.5-10.1); Chloride 103 mmol/L (98-107); Creatinine, Serum 5.22 mg/dL (0.55-1.02); EST Glomerular Filtration Rate 9 mL/min (>60); Est Glom Filt Rate - Afr Amer 10 mL/min (>60); Glucose 103 mg/dL (74-106); Magnesium 2.6 mg/dL (1.6-2.6); Potassium 4.8 mmol/L (3.5-5.1); Sodium Level 139 mmol/L (136-145)
--- NOTE | 2018-12-02 06:49 | PCM.PN.INT ---
Subjective: The patient was seen and examined at the bedside this morning. Events from the last 24 hours have been reviewed. The patient is currently afebrile, hemodynamically stable and maintaining appropriate oxygen saturations on 4 L/min via nasal cannula. No overnight issues were identified by the nursing staff. The patient is currently awaiting transfer to the progressive care unit. There are plans for scheduled dialysis today. Objective: The patient's most recent lab work, culture data and imaging studies have all been personally reviewed. Respiratory viral panel was negative. Blood and urine cultures have shown no growth to date. C. difficile was negative. Enteric panel was negative. Stool for occult blood was positive. Surface echocardiogram from April 2018 revealed mild concentric LVH with an ejection fraction of 55%. Right ventricular systolic pressure was estimated to be 77 [address] at that [address] abdomen/pelvis with contrast revealed nonspecific inflammatory bowel disease involving the descending colon along with scattered diverticular changes within the descending and sigmoid colon. General: Alert, Cooperative, No apparent distress HEENT: Atraumatic, PERRLA, Normocephalic Oral: No Gingival or Mucosal Lesions/ Ulcerations Neck: Supple, No Nodes, Trachea Midline Lungs: No rhonchi, No wheeze, No rales, Diminished Cardiovascular: Regular rate, Regular Rhythm, Normal S1, Normal S2, No murmurs Abdomen: Bowel Sounds Present, Soft, Non Tender, Obese Extremities: No clubbing, No cyanosis, Edema Skin: - - No significant change from previous Musculoskeletal: No Tenderness to Palpation of Joints or Extremities Lymphatic: No Cervical, Supraclavicular, or Inguinal Adenopathy Neurological: Neuro grossly intact Psych/Mental Status: Normal Affect, Appropriate Vital Signs Temp Pulse Resp BP Pulse Ox 36.1 C L 61 14 146/79 H 100 12/02/18 03:00 12/02/18 03:00 12/02/18 03:00 12/02/18 03:00 12/02/18 03:00 Oxygen Flow Rate (L/min) 4 Oxygen Delivery Method Nasal Cannula Weight: 208 lb 1.862 oz Body Mass Index (BMI) 30.4 Finger Stick Blood Glucose 145 Intake and Output for Last 24 Hours 11/30/18 12/01/18 12/02/18 23:59 23:59 23:59 Intake Total 1191.3 / 1191.3 295 / 295 50 / 50 Output Total 1535 / 1535 90 / 90 10 / 10 Balance -343.7 / -343.7 205 / 205 40 / 40 Labs (Last 48 Hours) 11/30/18 11/30/18 11/30/18 14:57 17:13 21:25 WBC RBC Hgb Hct MCV MCH MCHC RDW RDW Differential Plt Count MPV Sodium Potassium Chloride Carbon Dioxide Anion Gap BUN Creatinine Estim Creat Clear Calc Est GFR (MDRD) Af Amer Est GFR (MDRD) Non-Af BUN/Creatinine Ratio Glucose Calcium Phosphorus Magnesium Total Bilirubin Direct Bilirubin AST ALT Alkaline Phosphatase Total Protein Albumin Globulin Lipase POC Glucose 121 H 150 H 165 H 12/01/18 12/01/18 12/01/18 03:55 06:49 08:00 WBC 11.1 H RBC 2.96 L Hgb 9.3 L Hct 29.0 L MCV 98.0 MCH 31.4 MCHC 32.1 RDW 14.9 H RDW Differential 53.0 H Plt Count 82 L MPV 8.9 Sodium 140 Potassium 4.3 Chloride 103 Carbon Dioxide 27.0 Anion Gap BUN 33 H Creatinine 4.17 H Estim Creat Clear Calc 11.40 Est GFR (MDRD) Af Amer 13 L Est GFR (MDRD) Non-Af 11 L BUN/Creatinine Ratio 7.9 L Glucose 123 H Calcium 7.9 L Phosphorus 5.0 H Magnesium Total Bilirubin Direct Bilirubin AST ALT Alkaline Phosphatase Total Protein Albumin 1.9 L Globulin Lipase POC Glucose 117 H 12/01/18 12/01/18 12/01/18 09:05 11:35 16:24 WBC RBC Hgb Hct MCV MCH MCHC RDW RDW Differential Plt Count MPV Sodium Potassium Chloride Carbon Dioxide Anion Gap BUN Creatinine Estim Creat Clear Calc Est GFR (MDRD) Af Amer Est GFR (MDRD) Non-Af BUN/Creatinine Ratio Glucose Calcium Phosphorus Magnesium Total Bilirubin 0.40 Direct Bilirubin 0.22 AST 23 ALT 17 Alkaline Phosphatase 73 Total Protein 5.8 L Albumin 2.0 L Globulin 3.8 Lipase 68 L POC Glucose 145 H 136 H 12/01/18 12/02/18 12/02/18 22:23 04:50 04:50 WBC 8.4 RBC 3.04 L Hgb 9.5 L Hct 30.1 L MCV 99.0 MCH 31.3 MCHC 31.6 L RDW 15.0 H RDW Differential 54.8 H Plt Count 69 L MPV 9.0 Sodium 139 Potassium 4.8 Chloride 103 Carbon Dioxide 26.0 Anion Gap 10 BUN 47 H Creatinine 5.22 H Estim Creat Clear Calc 9.10 Est GFR (MDRD) Af Amer 10 L Est GFR (MDRD) Non-Af 9 L BUN/Creatinine Ratio 9.0 L Glucose 103 Calcium 8.4 L Phosphorus Magnesium 2.6 Total Bilirubin Direct Bilirubin AST ALT Alkaline Phosphatase Total Protein Albumin Globulin Lipase POC Glucose 122 H Microbiology 11/29/18 06:45 Blood Culture (Wb)#3 - Line Draw Blood Culture - Preliminary No growth in 48 hours. 11/29/18 03:45 Urine Catheter - Vincent Urine Culture - Final Culture exhibits no growth. 11/28/18 14:04 Blood Culture (Wb) - No Site/Description Given Blood Culture - Preliminary No growth in 48 hours. 11/28/18 10:48 Blood Culture (Wb) - Left Hand Blood Culture - Preliminary No growth in 48 hours. Clinical Impression(s) from Imaging Studies Brain CT 11/28/18 10:21 IMPRESSION: Chronic involutional changes of the brain. Electronically Signed: Demario Jha DO at 12:53 EST Tel , Service support , Chest X-Ray 11/28/18 12:03 IMPRESSION: Blunting of the left costophrenic angle with findings suggestive of scarring at the left lung base. Electronically Signed: Antonio Pascual MD at 14:28 EST , Service support , Pelvis X-Ray 11/28/18 12:07 IMPRESSION: No acute findings Electronically Signed: Demario Jha DO at 12:41 EST Tel , Service support , Chest X-Ray 11/28/18 18:08 IMPRESSION: Small left pleural effusion and left lower lobe atelectasis. No evidence for pneumothorax status post central line placement Electronically Signed: Kevin Garzon MD at 19:10 EST , Service support , Abdomen/Pelvis CT 11/29/18 08:50 IMPRESSION: Nonspecific acute inflammatory bowel disease involving the descending colon with trace of free fluid in the paracolic gutter and pelvis There are also diverticular changes within the descending and sigmoid colon however due to the length of the involved segment of inflamed bowel diverticulitis is less likely to be etiology. Electronically Signed: Kevin Garzon MD at 16:57 EST , Service support , Medical Necessity - Tobacco Use Smoking Status: Former smoker Assessment/Plan RECOMMENDATIONS: 1. Continue antibiotic course as ordered. 2. Continue hemodialysis per nephrology recommendations. 3. Will discontinue stress dose steroids 4. Wean supplemental oxygen as tolerated. 5. Encourage incentive spirometer use and mobilize patient as tolerated. IMPRESSIONS: 1. Septic shock with unclear source of infection Resolved. The patient initially presented to the emergency department with significant hypotension which was presumed to be secondary to hypovolemia. The patient received IV fluid resuscitation and was noted to have an elevated lactate level. In addition, she did have an elevated white blood cell count. While no antibiotics were initiated in the emergency department, they were subsequently started upon arrival to the medical intensive care unit. Since that time, the patient has improved slowly from a clinical perspective. Although no exact source of infection has ever been identified, the patient appears to have responded to antibiotics, volume expansion and vasopressor support. She is no longer requiring vasopressor support and remains hemodynamically stable. Therefore, we will plan to continue antibiotics for 1 additional day. The patient's stress dose steroids will be discontinued. 2. Troponin elevation/history of coronary artery disease status post CABG/atrial fibrillation Potentially related to #1. Most likely secondary to demand ischemia in the setting of #1. 3. End-stage renal disease on hemodialysis Continue hemodialysis per nephrology recommendations. 4. Questionable COPD of unknown severity/chronic hypoxemic respiratory failure/questionable obstructive sleep apnea The patient has a questionable history of COPD and reportedly utilizes 2 L/min of supplemental oxygen at her baseline. In addition, she has a possible history of obstructive sleep apnea for which she is supposed to utilize nocturnal CPAP therapy. 5. Advanced age/questionable history of COPD/diabetic neuropathy/peripheral vascular disease/hypertension/hyperlipidemia Complicates care, management, recovery and prognosis. Physical therapy to continue to work with patient. 6. CODE STATUS Confirmed to be DNR CCA with intubation. This note was generated with ticketscript dictation software. It may contain incorrect words, spelling, and punctuation that were not noted in checking the note before signing. Code Visit Inpatient E&M: 14577 [facility] Hosp L2
[2018-12-02 07:20] LABS: Bedside Glucose 101 mg/dL (70-110)
--- NOTE | 2018-12-02 07:58 | PCM.PN.HOSP ---
Subjective: Patient seen currently being dialyzed. Remains afebrile WBC count but to within normal limits. An order has been given for patient to be transferred to progressive care unit pending bed availability. Objective: GENERAL: in no acute distress HEENT: Atraumatic; moist oral mucosa EYES; Anicteric, Normal Conjunctiva NECK; supple, normal thyroid, RESPIRATORY: Diminished to auscultation bilaterally, CARDIOVASCULAR: Regular S1 S2, no audible murmurs GI: soft, non-tender, normoactive bowel sounds, : No Renal angle tenderness; EXTREMITIES: Cool to touch. MUSCULOSKELETAL: No Joint Tenderness; NEURO: Awake; no lateralizing signs. SKIN: Stasis dermatitis involving both lower extremities PSYCH; flat affect Vitals/I&O's: Vital Signs Temp Pulse Resp BP Pulse Ox 96.9 F L 61 14 146/79 H 100 12/02/18 03:00 12/02/18 03:00 12/02/18 03:00 12/02/18 03:00 12/02/18 03:00 Oxygen Flow Rate (L/min) 4 Oxygen Delivery Method Nasal Cannula Weight: 94.4 kg Body Mass Index (BMI) 30.4 Finger Stick Blood Glucose 145 Intake and Output for Last 24 Hours 11/30/18 12/01/18 12/02/18 23:59 23:59 23:59 Intake Total 1191.3 / 1191.3 295 / 295 50 / 50 Output Total 1535 / 1535 90 / 90 10 / 10 Balance -343.7 / -343.7 205 / 205 40 / 40 Microbiology Past 72 Hours 11/29/18 06:45 Blood Culture (Wb)#3 - Line Draw Blood Culture - Preliminary No growth in 48 hours. 11/29/18 03:45 Urine Catheter - Vincent Urine Culture - Final Culture exhibits no growth. 11/28/18 14:04 Blood Culture (Wb) - No Site/Description Given Blood Culture - Preliminary No growth in 48 hours. 11/28/18 10:48 Blood Culture (Wb) - Left Hand Blood Culture - Preliminary No growth in 48 hours. 11/29/18 10:45 Mucosa - Nasopharyngeal Respiratory Panel (PCR) - Final 11/28/18 12:35 Stool Enteric Bacteriology - Final Laboratory Results 12/01/18 08:00: WBC 11.1 H, RBC 2.96 L, Hgb 9.3 L, Hct 29.0 L, MCV 98.0, MCH 31.4, MCHC 32.1, RDW 14.9 H, RDW Differential 53.0 H, Plt Count 82 L, MPV 8.9 12/01/18 09:05: Total Bilirubin 0.40, Direct Bilirubin 0.22, AST 23, ALT 17, Alkaline Phosphatase 73, Total Protein 5.8 L, Albumin 2.0 L, Globulin 3.8, Lipase 68 L 12/01/18 11:35: POC Glucose 145 H 12/01/18 16:24: POC Glucose 136 H 12/01/18 22:23: POC Glucose 122 H 12/02/18 04:50: WBC 8.4, RBC 3.04 L, Hgb 9.5 L, Hct 30.1 L, MCV 99.0, MCH 31.3, MCHC 31.6 L, RDW 15.0 H, RDW Differential 54.8 H, Plt Count 69 L, MPV 9.0 12/02/18 04:50: Sodium 139, Potassium 4.8, Chloride 103, Carbon Dioxide 26.0, Anion Gap 10, BUN 47 H, Creatinine 5.22 H, Estim Creat Clear Calc 9.10, Est GFR (MDRD) Af Amer 10 L, Est GFR (MDRD) Non-Af 9 L, BUN/Creatinine Ratio 9.0 L, Glucose 103, Calcium 8.4 L, Magnesium 2.6 12/02/18 07:10: POC Glucose 101 Current Medications Acetaminophen (Tylenol) 1,000 mg PO Q6H PRN PRN PRN Reason: PAIN Last Admin: 12/01/18 16:20 Dose: 1,000 mg Amiodarone HCl (Cordarone) 200 mg PO DAILY [facility] Last Admin: 12/01/18 09:15 Dose: 200 mg Apixaban (Eliquis) 2.5 mg PO BID [facility] Last Admin: 12/01/18 22:55 Dose: 2.5 mg Epoetin Joe (Procrit) 5,000 units IV MoWeFr [facility] Last Admin: 11/30/18 14:51 Dose: 5,000 u Hydrocortisone Sodium Succinate (Solu-Cortef) 50 mg IV Q12 [facility] Last Admin: 12/01/18 22:53 Dose: 50 mg Sodium Chloride () 250 mls @ 15 mls/hr IV .[id number] PRN PRN Reason: SALINE FLUSH Last Admin: 11/28/18 18:49 Dose: 15 mls/hr Meropenem 500 mg/ Sodium (Chloride) 60 mls @ 100 mls/hr IV Q24H [facility] Stop: 12/02/18 16:35 Last Admin: 12/01/18 14:19 Dose: 100 mls/hr Insulin Glargine (Lantus (Bk)) 24 units SC MoWeFr@1000 [facility] Last Admin: 11/30/18 14:58 Dose: 24 u Insulin Glargine (Lantus (Bkc)) 16 units SC SuTuTh@1000 [facility] Last Admin: 12/01/18 09:14 Dose: 16 units Insulin Human Lispro (Humalog Kwikpen ([facility])) 0 unit SC ACHS [facility]; Protocol Last Admin: 12/01/18 22:54 Dose: Not Given Lactic Acid (Lac-Hydrin, Amlactin) 1 applic TOPICAL BID [facility]; Protocol Last Admin: 12/01/18 22:54 Dose: 1 applicatio Metoclopramide HCl (Reglan) 10 mg PO BID [facility] Last Admin: 12/01/18 22:54 Dose: 10 mg Ondansetron HCl (Zofran) 4 mg IV Q6H PRN PRN PRN Reason: NAUSEA/VOMITING Last Admin: 11/30/18 23:05 Dose: 4 mg Pantoprazole Sodium (Protonix) 40 mg PO BID [facility] Last Admin: 12/01/18 22:54 Dose: 40 mg Sevelamer Carbonate (Renvela) 800 mg PO TIDCM [facility] Last Admin: 12/01/18 16:20 Dose: 800 mg Sodium Chloride () 5 - 15 ml IV UD PRN PRN Reason: SALINE FLUSH Last Admin: 12/02/18 04:56 Dose: 10 ml Medical Necessity - Tobacco Use Smoking Status: Former smoker Assessment/Plan Patient is a 78-year-old lady with multiple comorbidities including end-stage renal disease on dialysis presented to the emergency department apparently following a fall without loss of consciousness. Patient was found to be hypotensive on arrival and assessment of septic shock without etiology made admitted to the intensive care unit for resuscitation 1. Septic shock of undetermined etiology patient remains on broad-spectrum antibiotic therapy with cefepime as well as vancomycin in addition to norepinephrine titrated to keep map greater than 65. Patient cultures obtained on admission have so far remained negative to date. Stool for C. difficile pending. Chest x-ray obtained on admission demonstrated Blunting of the left costophrenic angle with findings suggestive of scarring at the left lung base. CT of the abdomen and pelvis with contrast performed on 09/28/2019 demonstrated Nonspecific acute inflammatory bowel disease involving the descending colon with trace of free fluid in the paracolic gutter and pelvis There are also diverticular changes within the descending and sigmoid colon however due to the length of the involved segment of inflamed bowel diverticulitis is less likely to be etiology. She was weaned off pressors on the morning of 12/01/2018. Patient has improved clinically. No source of her infection has been found to date regardless patient has improved with treatment 2. End-stage renal disease on hemodialysis on ,, 3. Hypertension antihypertensives on hold in view of patient presenting with septic shock 4. Diabetes mellitus type 2 oral agents held please and Accu-Cheks before meals and at bedtime with sliding scale coverage into continuation of patient long-acting insulin 5. Paroxysmal atrial fibrillation patient is on amiodarone for rate control as well as systemic anticoagulation with Eliquis 2. CAD with previous 9 stent placement 7. Ischemic cardiomyopathy status post AICD placement 8. Dyslipidemia-patient is on statin therapy, continued at home dose 9. Chronic hypoxic respiratory failure patient is on baseline home O2 at his ECF 10. Elevated troponin secondary to demand ischemia 11. DVT prophylaxis on Eliquis Code Visit Inpatient E&M: 65715 Subs Hosp L2
--- NOTE | 2018-12-02 08:01 | PN_ITS ---
Subjective: Patient seen currently being dialyzed. Remains afebrile WBC count but to within normal limits. An order has been given for patient to be transferred to progressive care unit pending bed availability. Objective: GENERAL: in no acute distress HEENT: Atraumatic; moist oral mucosa EYES; Anicteric, Normal Conjunctiva NECK; supple, normal thyroid, RESPIRATORY: Diminished to auscultation bilaterally, CARDIOVASCULAR: Regular S1 S2, no audible murmurs GI: soft, non-tender, normoactive bowel sounds, : No Renal angle tenderness; EXTREMITIES: Cool to touch. MUSCULOSKELETAL: No Joint Tenderness; NEURO: Awake; no lateralizing signs. SKIN: Stasis dermatitis involving both lower extremities PSYCH; flat affect Vitals/I&O's: Vital Signs Temp Pulse Resp BP Pulse Ox 96.9 F L 61 14 146/79 H 100 12/02/18 03:00 12/02/18 03:00 12/02/18 03:00 12/02/18 03:00 12/02/18 03:00 Oxygen Flow Rate (L/min) 4 Oxygen Delivery Method Nasal Cannula Weight: 94.4 kg Body Mass Index (BMI) 30.4 Finger Stick Blood Glucose 145 Intake and Output for Last 24 Hours 11/30/18 12/01/18 12/02/18 23:59 23:59 23:59 Intake Total 1191.3 / 1191.3 295 / 295 50 / 50 Output Total 1535 / 1535 90 / 90 10 / 10 Balance -343.7 / -343.7 205 / 205 40 / 40 Microbiology Past 72 Hours 11/29/18 06:45 Blood Culture (Wb)#3 - Line Draw Blood Culture - Preliminary No growth in 48 hours. 11/29/18 03:45 Urine Catheter - Vincent Urine Culture - Final Culture exhibits no growth. 11/28/18 14:04 Blood Culture (Wb) - No Site/Description Given Blood Culture - Preliminary No growth in 48 hours. 11/28/18 10:48 Blood Culture (Wb) - Left Hand Blood Culture - Preliminary No growth in 48 hours. 11/29/18 10:45 Mucosa - Nasopharyngeal Respiratory Panel (PCR) - Final 11/28/18 12:35 Stool Enteric Bacteriology - Final Laboratory Results 12/01/18 08:00: WBC 11.1 H, RBC 2.96 L, Hgb 9.3 L, Hct 29.0 L, MCV 98.0, MCH 31.4, MCHC 32.1, RDW 14.9 H, RDW Differential 53.0 H, Plt Count 82 L, MPV 8.9 12/01/18 09:05: Total Bilirubin 0.40, Direct Bilirubin 0.22, AST 23, ALT 17, Alkaline Phosphatase 73, Total Protein 5.8 L, Albumin 2.0 L, Globulin 3.8, Lipase 68 L 12/01/18 11:35: POC Glucose 145 H 12/01/18 16:24: POC Glucose 136 H 12/01/18 22:23: POC Glucose 122 H 12/02/18 04:50: WBC 8.4, RBC 3.04 L, Hgb 9.5 L, Hct 30.1 L, MCV 99.0, MCH 31.3, MCHC 31.6 L, RDW 15.0 H, RDW Differential 54.8 H, Plt Count 69 L, MPV 9.0 12/02/18 04:50: Sodium 139, Potassium 4.8, Chloride 103, Carbon Dioxide 26.0, Anion Gap 10, BUN 47 H, Creatinine 5.22 H, Estim Creat Clear Calc 9.10, Est GFR (MDRD) Af Amer 10 L, Est GFR (MDRD) Non-Af 9 L, BUN/Creatinine Ratio 9.0 L, Glucose 103, Calcium 8.4 L, Magnesium 2.6 12/02/18 07:10: POC Glucose 101 Current Medications Acetaminophen (Tylenol) 1,000 mg PO Q6H PRN PRN PRN Reason: PAIN Last Admin: 12/01/18 16:20 Dose: 1,000 mg Amiodarone HCl (Cordarone) 200 mg PO DAILY [facility] Last Admin: 12/01/18 09:15 Dose: 200 mg Apixaban (Eliquis) 2.5 mg PO BID [facility] Last Admin: 12/01/18 22:55 Dose: 2.5 mg Epoetin Joe (Procrit) 5,000 units IV MoWeFr [facility] Last Admin: 11/30/18 14:51 Dose: 5,000 u Hydrocortisone Sodium Succinate (Solu-Cortef) 50 mg IV Q12 [facility] Last Admin: 12/01/18 22:53 Dose: 50 mg Sodium Chloride () 250 mls @ 15 mls/hr IV .[id number] PRN PRN Reason: SALINE FLUSH Last Admin: 11/28/18 18:49 Dose: 15 mls/hr Meropenem 500 mg/ Sodium (Chloride) 60 mls @ 100 mls/hr IV Q24H [facility] Stop: 12/02/18 16:35 Last Admin: 12/01/18 14:19 Dose: 100 mls/hr Insulin Glargine (Lantus (Bk)) 24 units SC MoWeFr@1000 [facility] Last Admin: 11/30/18 14:58 Dose: 24 u Insulin Glargine (Lantus (Bkc)) 16 units SC SuTuTh@1000 [facility] Last Admin: 12/01/18 09:14 Dose: 16 units Insulin Human Lispro (Humalog Kwikpen ([facility])) 0 unit SC ACHS [facility]; Protocol Last Admin: 12/01/18 22:54 Dose: Not Given Lactic Acid (Lac-Hydrin, Amlactin) 1 applic TOPICAL BID [facility]; Protocol Last Admin: 12/01/18 22:54 Dose: 1 applicatio Metoclopramide HCl (Reglan) 10 mg PO BID [facility] Last Admin: 12/01/18 22:54 Dose: 10 mg Ondansetron HCl (Zofran) 4 mg IV Q6H PRN PRN PRN Reason: NAUSEA/VOMITING Last Admin: 11/30/18 23:05 Dose: 4 mg Pantoprazole Sodium (Protonix) 40 mg PO BID [facility] Last Admin: 12/01/18 22:54 Dose: 40 mg Sevelamer Carbonate (Renvela) 800 mg PO TIDCM [facility] Last Admin: 12/01/18 16:20 Dose: 800 mg Sodium Chloride () 5 - 15 ml IV UD PRN PRN Reason: SALINE FLUSH Last Admin: 12/02/18 04:56 Dose: 10 ml Medical Necessity - Tobacco Use Smoking Status: Former smoker Assessment/Plan Patient is a 78-year-old lady with multiple comorbidities including end-stage renal disease on dialysis presented to the emergency department apparently following a fall without loss of consciousness. Patient was found to be hypotensive on arrival and assessment of septic shock without etiology made admitted to the intensive care unit for resuscitation 1. Septic shock of undetermined etiology patient remains on broad-spectrum antibiotic therapy with cefepime as well as vancomycin in addition to norepinephrine titrated to keep map greater than 65. Patient cultures obtained on admission have so far remained negative to date. Stool for C. difficile pending. Chest x-ray obtained on admission demonstrated Blunting of the left costophrenic angle with findings suggestive of scarring at the left lung base. CT of the abdomen and pelvis with contrast performed on 09/28/2019 demonstrated Nonspecific acute inflammatory bowel disease involving the descending colon with trace of free fluid in the paracolic gutter and pelvis There are also diverticular changes within the descending and sigmoid colon however due to the length of the involved segment of inflamed bowel diverticulitis is less likely to be etiology. She was weaned off pressors on the morning of 12/01/2018. Patient has improved clinically. No source of her infection has been found to date regardless patient has improved with treatment 2. End-stage renal disease on hemodialysis on ,, 3. Hypertension antihypertensives on hold in view of patient presenting with septic shock 4. Diabetes mellitus type 2 oral agents held please and Accu-Cheks before meals and at bedtime with sliding scale coverage into continuation of patient long- acting insulin 5. Paroxysmal atrial fibrillation patient is on amiodarone for rate control as well as systemic anticoagulation with Eliquis 2. CAD with previous 9 stent placement 7. Ischemic cardiomyopathy status post AICD placement 8. Dyslipidemia-patient is on statin therapy, continued at home dose 9. Chronic hypoxic respiratory failure patient is on baseline home O2 at his ECF 10. Elevated troponin secondary to demand ischemia 11. DVT prophylaxis on Eliquis Code Visit Inpatient E&M: 20866 Subs Hosp L2
--- NOTE | 2018-12-02 10:08 | PCM.PN.REN ---
Subjective: Pt is doing well . Seen during HD session. No nausea No vomiting. No SOB No CP - Physical Exam General: Alert, Oriented x3 HEENT: Atraumatic Oral: Moist Mucosa Neck: Supple, No JVD Lungs: Clear to auscultation, Normal air movement Cardiovascular: Regular rate, Regular Rhythm, Normal S1 Abdomen: Bowel Sounds Present, Soft, Non Tender Extremities: No clubbing, No cyanosis, Edema - trace Musculoskeletal: No Tenderness to Palpation of Joints or Extremities Lymphatic: No Cervical, Supraclavicular, or Inguinal Adenopathy Neurological: Cranial nerves II-XII grossly intact, Neuro grossly intact Psych/Mental Status: Normal Affect Vital Signs Temp Pulse Resp BP Pulse Ox 97.8 F 64 23 H 154/65 H 97 12/02/18 09:00 12/02/18 09:27 12/02/18 09:27 12/02/18 09:00 12/02/18 09:27 Oxygen Flow Rate (L/min) 4 Oxygen Delivery Method Nasal Cannula Weight: 94.4 kg Body Mass Index (BMI) 30.4 Finger Stick Blood Glucose 145 Intake and Output for Last 24 Hours 11/30/18 12/01/18 12/02/18 23:59 23:59 23:59 Intake Total 1191.3 / 1191.3 295 / 295 50 / 50 Output Total 1535 / 1535 90 / 90 10 / 10 Balance -343.7 / -343.7 205 / 205 40 / 40 Microbiology Past 72 Hours 11/29/18 06:45 Blood Culture - Preliminary Blood Culture (Wb)#3 - Line Draw No growth in 48 hours. 11/29/18 03:45 Urine Culture - Final Urine Catheter - Vincent Culture exhibits no growth. 11/28/18 14:04 Blood Culture - Preliminary Blood Culture (Wb) - No Site/Description Given No growth in 48 hours. 11/28/18 10:48 Blood Culture - Preliminary Blood Culture (Wb) - Left Hand No growth in 48 hours. 11/29/18 10:45 Respiratory Panel (PCR) - Final Mucosa - Nasopharyngeal 11/28/18 12:35 Enteric Bacteriology - Final Stool Laboratory Tests Past 24 Hrs 12/02/18 12/02/18 04:50 04:50 WBC 8.4 RBC 3.04 L Hgb 9.5 L Hct 30.1 L MCV 99.0 MCH 31.3 MCHC 31.6 L RDW 15.0 H RDW Differential 54.8 H Plt Count 69 L MPV 9.0 Sodium 139 Potassium 4.8 Chloride 103 Carbon Dioxide 26.0 Anion Gap 10 BUN 47 H Creatinine 5.22 H Estim Creat Clear Calc 9.10 Est GFR (MDRD) Af Amer 10 L Est GFR (MDRD) Non-Af 9 L BUN/Creatinine Ratio 9.0 L Glucose 103 Calcium 8.4 L Magnesium 2.6 POC Glucose 12/02/18 12/01/18 12/01/18 07:10 22:23 16:24 POC Glucose 101 122 H 136 H 12/01/18 11:35 POC Glucose 145 H Medical Necessity - Tobacco Use Smoking Status: Former smoker Assessment/Plan 1-End stage renal disease on Wednesday hemodialysis schedule. Seen during HD session today: BQ 350, DQ 600 UF 3L 2-Septic shock. Better. Off pressors Abx as per ID/primary service 3-anemia: Continue WILLY as per the chronic HD order 4- BMD: Continue sevelamer TID with meals. P level improved. Renal team will continue to follow Please call with any question or concern. Jonna Martin MD [phone]
--- NOTE | 2018-12-02 10:53 | CASEMGMT ---
As per physician, pt may be able to return to [place] tomorrow. DWAYNE spoke w/Tosin at [facility] [facility] and let her know, confirmed she is all set up for outpt dialysis already. DWAYNE faxed updates to Tosin at [facility] [facility], green sheet w/transport forms placed on chart in anticipation of weekend discharge. DAVONTE Hsu, [employer] PR[employer] OPERATOR
[2018-12-02 11:11] LABS: Bedside Glucose 75 mg/dL (70-110)
--- NOTE | 2018-12-02 11:40 | DIALYSIS ---
HD X 3.5 HRS ON A 2K BATH [id number] TOLERATED WELL GIVEN EPOGEN AND HECTORAL DURING TREATMENT. REPORT GIVEN TO ISMAEL SANDHU. VITALS STABLE
[2018-12-02] MEDS: APIXABAN 2.5 MG TABLET PO ×2 (13:01→21:12)
[2018-12-02] MEDS: Ammonium Lactate 225 gm Bottle 1 APPLIC TOPICAL ×2 (13:01→21:13)
[2018-12-02] MEDS: SEVELAMER CARBONATE 800 MG TABLET PO ×2 (13:02→18:20)
[2018-12-02] MEDS: Amiodarone 200 MG Tablet PO (13:02)
[2018-12-02] MEDS: Pantoprazole Sodium 40 MG Tablet PO ×2 (13:02→21:12)
[2018-12-02] MEDS: Metoclopramide 10 MG Tablet PO ×2 (13:02→21:12)
[2018-12-02] MEDS: Acetaminophen 500 MG Tablet 1000 MG PO ×2 (15:27→21:13)
[2018-12-02 16:51] LABS: Bedside Glucose 104 mg/dL (70-110)
[2018-12-02 21:31] LABS: Bedside Glucose 131 mg/dL (70-110)
[2018-12-03] VITALS (12 sets, daily range): BP systolic 107–126; BP diastolic 54–58; PULSE 60–68; RESP 16–20; TEMP 36.3–37; O2SAT 94–100
[2018-12-03] MEDS: oxyCODONE 5 MG Tablet PO ×2 (00:20→21:03)
[2018-12-03] MEDS: 0.9% NaCl Peripheral Flush Adult/Peds IV ×3 (04:46→17:04)
[2018-12-03 04:55] LABS: Hematocrit 27.8 % (37-47); Hemoglobin 8.7 g/dl (12.0-15.0); Mean Corp Hgb Conc 31.3 g/gl (32-36); Mean Corpuscular Hgb 31.1 pg (27.0-32.0); Mean Corpuscular Volume 99.3 fL (81-99); Mean Platelet Vol. 8.7 fl (6.2-12.0); Platelet Count 75 K/mm3 (150-450); RBC Distribution Width CV 14.7 % (11.6-14.6); RBC Distribution Width SD 52.9 fl (35.1-43.9); White Blood Count 8.4 K/mm3 (4.4-11.0)
[2018-12-03 05:03] LABS: Scan Indicated on CBC? Y/N NO
[2018-12-03 05:14] LABS: Anion Gap 8 (5-15); BUN 28 mg/dL (7-18); BUN/Creat Ratio 7.4 RATIO (10-20); Calcium,Total 8.7 mg/dL (8.5-10.1); Chloride 104 mmol/L (98-107); Creatinine, Serum 3.79 mg/dL (0.55-1.02); EST Glomerular Filtration Rate 12 mL/min (>60); Est Glom Filt Rate - Afr Amer 15 mL/min (>60); Estimated Creatinine Clearance 12.54 ml/min; Glucose 33 mg/dL (74-106); Potassium 3.6 mmol/L (3.5-5.1); Sodium Level 143 mmol/L (136-145)
[2018-12-03 05:21] LABS: Bedside Glucose 26 mg/dL (70-110)
[2018-12-03] MEDS: Dextrose 50%-Water 25 GM/50 ML DISP.SYRIN IV (05:25)
[2018-12-03 05:41] LABS: Bedside Glucose 134 mg/dL (70-110)
--- NOTE | 2018-12-03 06:18 | PN_ITS ---
Subjective: The patient was seen and examined at the bedside this morning. Events from the last 24 hours have been reviewed. The patient is currently afebrile, hemodynamically stable and maintaining appropriate oxygen saturations on 4 L/min via nasal cannula. The patient tolerated hemodialysis yesterday with 2.6 L of fluid removed. No overnight events were noted by the nursing staff. The patient's blood sugar was low this morning. Objective: The patient's most recent lab work, culture data and imaging studies have all been personally reviewed. Respiratory viral panel was negative. Blood and urine cultures have shown no growth to date. C. difficile was negative. Enteric panel was negative. Stool for occult blood was positive. Surface echocardiogram from April 2018 revealed mild concentric LVH with an ejection fraction of 55%. Right ventricular systolic pressure was estimated to be 77 mmHg at that time[address] abdomen/pelvis with contrast revealed nonspecific inflammatory bowel disease involving the descending colon along with scattered diverticular changes within the descending and sigmoid colon. General: Alert, Cooperative, No apparent distress HEENT: Atraumatic, PERRLA, Normocephalic Oral: No Gingival or Mucosal Lesions/ Ulcerations Neck: Supple, No Nodes, Trachea Midline Lungs: No rhonchi, No wheeze, No rales, Diminished Cardiovascular: Regular rate, Regular Rhythm, Normal S1, Normal S2, No murmurs Abdomen: Bowel Sounds Present, Soft, Non Tender, Obese Extremities: No clubbing, No cyanosis, Edema Skin: - - No significant change from previous. Musculoskeletal: No Tenderness to Palpation of Joints or Extremities Lymphatic: No Cervical, Supraclavicular, or Inguinal Adenopathy Neurological: Neuro grossly intact Psych/Mental Status: Normal Affect, Appropriate Vital Signs Temp Pulse Resp BP Pulse Ox 36.5 C L 64 16 107/55 L 95 12/03/18 03:00 12/03/18 04:10 12/03/18 03:00 12/03/18 03:00 12/03/18 03:00 Oxygen Flow Rate (L/min) 4 Oxygen Delivery Method Nasal Cannula Weight: 204 lb 2.369 oz Body Mass Index (BMI) 30.4 Finger Stick Blood Glucose 145 Intake and Output for Last 24 Hours 12/01/18 12/02/18 12/03/18 23:59 23:59 23:59 Intake Total 295 / 295 910 / 910 120 / 120 Output Total 90 / 90 2610 / 2610 0 / 0 Balance 205 / 205 -1700 / -1700 120 / 120 Labs (Last 48 Hours) 12/01/18 12/01/18 12/01/18 06:49 08:00 09:05 WBC 11.1 H RBC 2.96 L Hgb 9.3 L Hct 29.0 L MCV 98.0 MCH 31.4 MCHC 32.1 RDW 14.9 H RDW Differential 53.0 H Plt Count 82 L MPV 8.9 Sodium Potassium Chloride Carbon Dioxide Anion Gap BUN Creatinine Estim Creat Clear Calc Est GFR (MDRD) Af Amer Est GFR (MDRD) Non-Af BUN/Creatinine Ratio Glucose Calcium Magnesium Total Bilirubin 0.40 Direct Bilirubin 0.22 AST 23 ALT 17 Alkaline Phosphatase 73 Total Protein 5.8 L Albumin 2.0 L Globulin 3.8 Lipase 68 L POC Glucose 117 H 12/01/18 12/01/18 12/01/18 11:35 16:24 22:23 WBC RBC Hgb Hct MCV MCH MCHC RDW RDW Differential Plt Count MPV Sodium Potassium Chloride Carbon Dioxide Anion Gap BUN Creatinine Estim Creat Clear Calc Est GFR (MDRD) Af Amer Est GFR (MDRD) Non-Af BUN/Creatinine Ratio Glucose Calcium Magnesium Total Bilirubin Direct Bilirubin AST ALT Alkaline Phosphatase Total Protein Albumin Globulin Lipase POC Glucose 145 H 136 H 122 H 12/02/18 12/02/18 12/02/18 04:50 04:50 07:10 WBC 8.4 RBC 3.04 L Hgb 9.5 L Hct 30.1 L MCV 99.0 MCH 31.3 MCHC 31.6 L RDW 15.0 H RDW Differential 54.8 H Plt Count 69 L MPV 9.0 Sodium 139 Potassium 4.8 Chloride 103 Carbon Dioxide 26.0 Anion Gap 10 BUN 47 H Creatinine 5.22 H Estim Creat Clear Calc 9.10 Est GFR (MDRD) Af Amer 10 L Est GFR (MDRD) Non-Af 9 L BUN/Creatinine Ratio 9.0 L Glucose 103 Calcium 8.4 L Magnesium 2.6 Total Bilirubin Direct Bilirubin AST ALT Alkaline Phosphatase Total Protein Albumin Globulin Lipase POC Glucose 101 12/02/18 12/02/18 12/02/18 11:06 16:34 21:07 WBC RBC Hgb Hct MCV MCH MCHC RDW RDW Differential Plt Count MPV Sodium Potassium Chloride Carbon Dioxide Anion Gap BUN Creatinine Estim Creat Clear Calc Est GFR (MDRD) Af Amer Est GFR (MDRD) Non-Af BUN/Creatinine Ratio Glucose Calcium Magnesium Total Bilirubin Direct Bilirubin AST ALT Alkaline Phosphatase Total Protein Albumin Globulin Lipase POC Glucose 75 104 131 H 12/03/18 12/03/18 12/03/18 04:45 04:45 05:15 WBC 8.4 RBC 2.80 L Hgb 8.7 L Hct 27.8 L MCV 99.3 H MCH 31.1 MCHC 31.3 L RDW 14.7 H RDW Differential 52.9 H Plt Count 75 L MPV 8.7 Sodium 143 Potassium 3.6 Chloride 104 Carbon Dioxide 31.0 Anion Gap 8 BUN 28 H Creatinine 3.79 H Estim Creat Clear Calc 12.54 Est GFR (MDRD) Af Amer 15 L Est GFR (MDRD) Non-Af 12 L BUN/Creatinine Ratio 7.4 L Glucose 33 L* Calcium 8.7 Magnesium Total Bilirubin Direct Bilirubin AST ALT Alkaline Phosphatase Total Protein Albumin Globulin Lipase POC Glucose 26 L* 12/03/18 05:33 WBC RBC Hgb Hct MCV MCH MCHC RDW RDW Differential Plt Count MPV Sodium Potassium Chloride Carbon Dioxide Anion Gap BUN Creatinine Estim Creat Clear Calc Est GFR (MDRD) Af Amer Est GFR (MDRD) Non-Af BUN/Creatinine Ratio Glucose Calcium Magnesium Total Bilirubin Direct Bilirubin AST ALT Alkaline Phosphatase Total Protein Albumin Globulin Lipase POC Glucose 134 H Microbiology 11/29/18 06:45 Blood Culture (Wb)#3 - Line Draw Blood Culture - Preliminary No growth in 48 hours. 11/29/18 03:45 Urine Catheter - Vincent Urine Culture - Final Culture exhibits no growth. Clinical Impression(s) from Imaging Studies Brain CT 11/28/18 10:21 IMPRESSION: Chronic involutional changes of the brain. Electronically Signed: Demario Jha DO at 12:53 EST Tel , Service support , Chest X-Ray 11/28/18 12:03 IMPRESSION: Blunting of the left costophrenic angle with findings suggestive of scarring at the left lung base. Electronically Signed: Antonio Pascual MD at 14:28 EST , Service support , Pelvis X-Ray 11/28/18 12:07 IMPRESSION: No acute findings Electronically Signed: Demario Jha DO at 12:41 EST Tel , Service support , Chest X-Ray 11/28/18 18:08 IMPRESSION: Small left pleural effusion and left lower lobe atelectasis. No evidence for pneumothorax status post central line placement Electronically Signed: Kevin Garzon MD at 19:10 EST , Service support , Abdomen/Pelvis CT 11/29/18 08:50 IMPRESSION: Nonspecific acute inflammatory bowel disease involving the descending colon with trace of free fluid in the paracolic gutter and pelvis There are also diverticular changes within the descending and sigmoid colon however due to the length of the involved segment of inflamed bowel diverticulitis is less likely to be etiology. Electronically Signed: Kevin Garzon MD at 16:57 EST , Service support , Medical Necessity - Tobacco Use Smoking Status: Former smoker Assessment/Plan RECOMMENDATIONS: 1. Antibiotic course has been completed 2. Continue hemodialysis per nephrology recommendations. 3. Will discontinue stress dose steroids 4. Wean supplemental oxygen as tolerated. 5. Encourage incentive spirometer use and mobilize patient as tolerated. 6. Remove the patient's triple-lumen catheter prior to consideration for discharge from the hospital. IMPRESSIONS: 1. Septic shock with unclear source of infection Resolved. The patient initially presented to the emergency department with significant hypotension which was presumed to be secondary to hypovolemia. The patient received IV fluid resuscitation and was noted to have an elevated la ctate level. In addition, she did have an elevated white blood cell count. While no antibiotics were initiated in the emergency department, they were subsequently started upon arrival to the medical intensive care unit. Since that time, the patient has improved slowly from a clinical perspective. Although no exact source of infection has ever been identified, the patient appears to have responded to antibiotics, volume expansion and vasopressor support. She is no longer requiring vasopressor support and remains hemodynamically stable. She has now completed her antibiotic course. The pat ient's stress dose steroids will be discontinued. 2. Troponin elevation/history of coronary artery disease status post CABG/atrial fibrillation Potentially related to #1. Most likely secondary to demand ischemia in the setting of #1. 3. End-stage renal disease on hemodialysis Continue hemodialysis per nephrology recommendations. 4. Questionable COPD of unknown severity/chronic hypoxemic respiratory failure/questionable obstructive sleep apnea The patient has a questionable history of COPD and reportedly utilizes 2 L/min of supplemental oxygen at her baseline. In addition, she has a possible history of obstructive sleep apnea for which she is supposed to utilize nocturnal CPAP therapy. 5. Advanced age/questionable history of COPD/diabetic neuropathy/peripheral vascular disease/hypertension/hyperlipidemia Complicates care, management, recovery and prognosis. Physical therapy to continue to work with patient. 6. CODE STATUS Confirmed to be DNR CCA with intubation. This note was generated with [employer] dictation software. It may contain incorrect words, spelling, and punctuation that were not noted in checking the note before signing. DISPOSITION: Given the patient's lack of ongoing ICU needs, will sign off. Please call with any additional questions. Code Visit Inpatient E&M: 30044 Subs Hosp L2
[2018-12-03 07:06] LABS: Bedside Glucose 108 mg/dL (70-110)
--- NOTE | 2018-12-03 07:14 | PN_ITS ---
Subjective: Patient had hypoglycemic episode with glucose level of 33 this a.m. Her long- acting insulin dose subsequently adjusted. Objective: GENERAL: cooperative HEENT: Atraumatic; moist oral mucosa EYES; Anicteric, Normal Conjunctiva NECK; supple, normal thyroid, RESPIRATORY: Diminished to auscultation bilaterally, CARDIOVASCULAR: Regular S1 S2, no audible murmurs GI: soft, non-tender, normoactive bowel sounds, : No Renal angle tenderness; EXTREMITIES: Cool to touch. MUSCULOSKELETAL: No Joint Tenderness; NEURO: Awake; no lateralizing signs. SKIN: Stasis dermatitis involving both lower extremities PSYCH; flat affect Vitals/I&O's: Vital Signs Temp Pulse Resp BP Pulse Ox 97.7 F L 64 16 107/55 L 95 12/03/18 03:00 12/03/18 04:10 12/03/18 03:00 12/03/18 03:00 12/03/18 03:00 Oxygen Flow Rate (L/min) 4 Oxygen Delivery Method Nasal Cannula Weight: 92.6 kg Body Mass Index (BMI) 30.4 Finger Stick Blood Glucose 145 Intake and Output for Last 24 Hours 12/01/18 12/02/18 12/03/18 23:59 23:59 23:59 Intake Total 295 / 295 910 / 910 360 / 360 Output Total 90 / 90 2610 / 2610 25 / 25 Balance 205 / 205 -1700 / -1700 335 / 335 Microbiology Past 72 Hours 11/29/18 06:45 Blood Culture (Wb)#3 - Line Draw Blood Culture - Preliminary No growth in 48 hours. 11/29/18 03:45 Urine Catheter - Vincent Urine Culture - Final Culture exhibits no growth. 11/28/18 14:04 Blood Culture (Wb) - No Site/Description Given Blood Culture - Preliminary No growth in 48 hours. 11/28/18 10:48 Blood Culture (Wb) - Left Hand Blood Culture - Preliminary No growth in 48 hours. Laboratory Results 12/02/18 07:10: POC Glucose 101 12/02/18 11:06: POC Glucose 75 12/02/18 16:34: POC Glucose 104 12/02/18 21:07: POC Glucose 131 H 12/03/18 04:45: WBC 8.4, RBC 2.80 L, Hgb 8.7 L, Hct 27.8 L, MCV 99.3 H, MCH 31.1, MCHC 31.3 L, RDW 14.7 H, RDW Differential 52.9 H, Plt Count 75 L, MPV 8.7 12/03/18 04:45: Sodium 143, Potassium 3.6, Chloride 104, Carbon Dioxide 31.0, Anion Gap 8, BUN 28 H, Creatinine 3.79 H, Estim Creat Clear Calc 12.54, Est GFR (MDRD) Af Amer 15 L, Est GFR (MDRD) Non-Af 12 L, BUN/Creatinine Ratio 7.4 L, Glucose 33 L*, Calcium 8.7 12/03/18 05:15: POC Glucose 26 L* 12/03/18 05:33: POC Glucose 134 H 12/03/18 07:00: POC Glucose 108 Current Medications Acetaminophen (Tylenol) 1,000 mg PO Q6H PRN PRN PRN Reason: PAIN Last Admin: 12/02/18 21:13 Dose: 1,000 mg Amiodarone HCl (Cordarone) 200 mg PO DAILY [facility] Last Admin: 12/02/18 13:02 Dose: 200 mg Apixaban (Eliquis) 2.5 mg PO BID [facility] Last Admin: 12/02/18 21:12 Dose: 2.5 mg Dextrose (D50w Syringe) 0 gm IV X1 PRN; Protocol PRN Reason: Hypoglycemia Last Admin: 12/03/18 05:25 Dose: 25 gm Epoetin Joe (Procrit) 5,000 units IV MoWeFr [facility] Last Admin: 12/02/18 11:50 Dose: Not Given Glucagon () 1 mg IM .X1 PRN PRN Reason: Hypoglycemia Sodium Chloride () 250 mls @ 15 mls/hr IV .[id number] PRN PRN Reason: SALINE FLUSH Last Admin: 11/28/18 18:49 Dose: 15 mls/hr Insulin Glargine (Lantus (Bkc)) 10 units SC DAILY [facility] Insulin Human Lispro (Humalog Kwikpen (Bkc)) 0 unit SC ACHS [facility]; Protocol Last Admin: 12/03/18 05:31 Dose: Not Given Lactic Acid (Lac-Hydrin, Amlactin) 1 applic TOPICAL BID [facility]; Protocol Last Admin: 12/02/18 21:13 Dose: 1 applicatio Metoclopramide HCl (Reglan) 10 mg PO BID [facility] Last Admin: 12/02/18 21:12 Dose: 10 mg Ondansetron HCl (Zofran) 4 mg IV Q6H PRN PRN PRN Reason: NAUSEA/VOMITING Last Admin: 11/30/18 23:05 Dose: 4 mg Pantoprazole Sodium (Protonix) 40 mg PO BID [facility] Last Admin: 12/02/18 21:12 Dose: 40 mg Sevelamer Carbonate (Renvela) 800 mg PO TIDCM [facility] Last Admin: 12/02/18 18:20 Dose: 800 mg Sodium Chloride () 5 - 15 ml IV UD PRN PRN Reason: SALINE FLUSH Last Admin: 12/03/18 05:34 Dose: 10 ml Medical Necessity - Tobacco Use Smoking Status: Former smoker Assessment/Plan Patient is a 78-year-old lady with multiple comorbidities including end-stage renal disease on dialysis presented to the emergency department apparently following a fall without loss of consciousness. Patient was found to be hypotensive on arrival and assessment of septic shock without etiology made admitted to the intensive care unit for resuscitation 1. Septic shock of undetermined etiology patient remains on broad-spectrum antibiotic therapy with cefepime as well as vancomycin in addition to norepinephrine titrated to keep map greater than 65. Patient cultures obtained on admission have so far remained negative to date. Stool for C. difficile pending. Chest x-ray obtained on admission demonstrated Blunting of the left costophrenic angle with findings suggestive of scarring at the left lung base. CT of the abdomen and pelvis with contrast performed on 09/28/2019 demonstrated Nonspecific acute inflammatory bowel disease involving the descending colon with trace of free fluid in the paracolic gutter and pelvis There are also diverticular changes within the descending and sigmoid colon however due to the length of the involved segment of inflamed bowel diverticulitis is less likely to be etiology. She was weaned off pressors on the morning of 12/01/2018. Patient has improved clinically. No source of her infection has been found to date regardless patient has improved with treatment. Patient condition did stabilize with treatment. 2. End-stage renal disease on hemodialysis on ,, 3. Hypertension antihypertensives on hold in view of patient presenting with septic shock 4. 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 Patient long-acting insulin dose subsequently adjusted. 5. Paroxysmal atrial fibrillation patient is on amiodarone for rate control as well as systemic anticoagulation with Eliquis 2. CAD with previous 9 stent placement 7. Ischemic cardiomyopathy status post AICD placement 8. Dyslipidemia-patient is on statin therapy, continued at home dose 9. Chronic hypoxic respiratory failure patient is on baseline home O2 at his ECF 10. Elevated troponin secondary to demand ischemia 11. DVT prophylaxis on Eliquis Code Visit Inpatient E&M: 41686 Subs Hosp L2
[2018-12-03] MEDS: SEVELAMER CARBONATE 800 MG TABLET PO ×3 (08:25→16:35)
[2018-12-03] MEDS: Pantoprazole Sodium 40 MG Tablet PO ×2 (09:59→21:06)
[2018-12-03] MEDS: APIXABAN 2.5 MG TABLET PO ×2 (09:59→21:06)
[2018-12-03] MEDS: Metoclopramide 10 MG Tablet PO ×2 (09:59→21:06)
[2018-12-03] MEDS: Amiodarone 200 MG Tablet PO (09:59)
[2018-12-03] MEDS: Ammonium Lactate 225 gm Bottle 1 APPLIC TOPICAL ×2 (10:00→21:08)
[2018-12-03 11:31] LABS: Bedside Glucose 146 mg/dL (70-110)
[2018-12-03] MEDS: Acetaminophen 500 MG Tablet 1000 MG PO ×2 (12:00→18:11)
[2018-12-03 16:36] LABS: Bedside Glucose 142 mg/dL (70-110)
[2018-12-03] MEDS: Ondansetron 4 MG/2 ML Vial IV (17:04)
--- NOTE | 2018-12-03 18:26 | PCM.PN.REN ---
Subjective: Pt is out of ICU. Had hypoglycemic episode this morning Complaining of abdominal pain and diarrhea no SOB. tolerated HD session well yesterday with 2.6 L UF - Physical Exam General: Alert, Oriented x3 HEENT: Atraumatic Oral: Moist Mucosa Neck: Supple, No JVD Lungs: Clear to auscultation, Normal air movement, No rhonchi, No wheeze Cardiovascular: Regular rate, Regular Rhythm, Normal S1, Normal S2 Abdomen: Bowel Sounds Present, Soft, Tender Extremities: No clubbing, No cyanosis, No edema Musculoskeletal: No Tenderness to Palpation of Joints or Extremities Lymphatic: No Cervical, Supraclavicular, or Inguinal Adenopathy Neurological: Cranial nerves II-XII grossly intact, Neuro grossly intact Psych/Mental Status: Normal Affect Vital Signs Temp Pulse Resp BP Pulse Ox 98.6 F 63 18 120/58 L 100 12/03/18 15:00 12/03/18 15:04 12/03/18 15:00 12/03/18 15:00 12/03/18 15:00 Oxygen Flow Rate (L/min) 3 Oxygen Delivery Method Nasal Cannula Weight: 92.6 kg Body Mass Index (BMI) 30.4 Finger Stick Blood Glucose 145 Intake and Output for Last 24 Hours 12/01/18 12/02/18 12/03/18 23:59 23:59 23:59 Intake Total 295 / 295 910 / 910 480 / 480 Output Total 90 / 90 2610 / 2610 25 / 25 Balance 205 / 205 -1700 / -1700 455 / 455 Microbiology Past 72 Hours 11/28/18 14:04 Blood Culture - Final Blood Culture (Wb) - No Site/Description Given No growth in 5 days. 11/28/18 10:48 Blood Culture - Final Blood Culture (Wb) - Left Hand No growth in 5 days. 11/29/18 06:45 Blood Culture - Preliminary Blood Culture (Wb)#3 - Line Draw No growth in 48 hours. 11/29/18 03:45 Urine Culture - Final Urine Catheter - Vincent Culture exhibits no growth. Laboratory Tests Past 24 Hrs 12/03/18 12/03/18 04:45 04:45 WBC 8.4 RBC 2.80 L Hgb 8.7 L Hct 27.8 L MCV 99.3 H MCH 31.1 MCHC 31.3 L RDW 14.7 H RDW Differential 52.9 H Plt Count 75 L MPV 8.7 Sodium 143 Potassium 3.6 Chloride 104 Carbon Dioxide 31.0 Anion Gap 8 BUN 28 H Creatinine 3.79 H Estim Creat Clear Calc 12.54 Est GFR (MDRD) Af Amer 15 L Est GFR (MDRD) Non-Af 12 L BUN/Creatinine Ratio 7.4 L Glucose 33 L* Calcium 8.7 POC Glucose 12/03/18 12/03/18 12/03/18 16:27 11:24 07:00 POC Glucose 142 H 146 H 108 12/03/18 12/03/18 12/02/18 05:33 05:15 21:07 POC Glucose 134 H 26 L* 131 H Medical Necessity - Tobacco Use Smoking Status: Former smoker Assessment/Plan 1-End stage renal disease on Wednesday hemodialysis schedule. Last HD session 12/02. No indication for HD today Next session Wednesday 2-Septic shock. Better. Off pressors off Abx now 3-anemia: Continue WILLY as per the chronic HD order 4- BMD: Continue sevelamer TID with meals. P level improved. 5- Diarrhea r/o C diff . Will defer to the primary service Renal team will continue to follow Please call with any question or concern. Jonna Martin MD [phone]
[2018-12-03 21:26] LABS: Bedside Glucose 139 mg/dL (70-110)
[2018-12-04] VITALS (10 sets, daily range): BP systolic 118–125; BP diastolic 58–71; PULSE 60–69; RESP 14–20; TEMP 36.3–36.8; O2SAT 96–100
--- NOTE | 2018-12-04 00:01 | NURSING ---
Assisted pt. up to BR at this time. Noted large blood clot in commode. Wiped pt. and checked for source of bleeding which was vaginal. Approximately 75 cc urine mixed with blood in commode. Will notify MD and monitor.
--- NOTE | 2018-12-04 00:50 | US_ITS ---
STUDY: ULTRASOUND TRANSVAGINAL CLINICAL: Female, 78 years old. Postmenopausal bleeding TECHNIQUE: Transvaginal. Limited study. COMPARISON: None. FINDINGS: Uterus is not visualized. No pelvic mass seen. No pelvic free fluid. The right ovary is not seen. The left ovary is not seen. US/Transvaginal Non- IMPRESSION: Nonvisualized uterus and ovaries. No pelvic free fluid or obvious mass. Electronically Signed: Abbe Ahn MD at 13:07 EST , Service support ,
--- NOTE | 2018-12-04 00:52 | PCM.HOSP.N ---
Hospitalist Note RN reported vaginal bleeding, noted clots. CT scan from prior 11/29/18 reviewed. Will hold eliquis and requested TVUS.
[2018-12-04] MEDS: Menthol/Lanolin/Calamine/Znox 113 GM Tube 1 APPLIC TOPICAL ×3 (04:41→23:20)
[2018-12-04] MEDS: Acetaminophen 500 MG Tablet 1000 MG PO (04:42)
[2018-12-04] MEDS: 0.9% NaCl Peripheral Flush Adult/Peds IV ×2 (05:07→05:08)
[2018-12-04 05:34] LABS: Anion Gap 8 (5-15); BUN 36 mg/dL (7-18); BUN/Creat Ratio 7.6 RATIO (10-20); Calcium,Total 8.3 mg/dL (8.5-10.1); Chloride 103 mmol/L (98-107); Creatinine, Serum 4.74 mg/dL (0.55-1.02); EST Glomerular Filtration Rate 10 mL/min (>60); Est Glom Filt Rate - Afr Amer 12 mL/min (>60); Estimated Creatinine Clearance 10.03 ml/min; Glucose 87 mg/dL (74-106); Potassium 4.3 mmol/L (3.5-5.1); Sodium Level 141 mmol/L (136-145)
[2018-12-04 07:26] LABS: Bedside Glucose 76 mg/dL (70-110)
--- NOTE | 2018-12-04 09:04 | PCM.PN.HOSP ---
Subjective: Patient was transferred from the ICU to progressive care unit following stabilization of her medical condition. She did report vaginal bleeding during the evening. Patient on Eliquis for this my A. fib held transvaginal ultrasound ordered for subsequent evaluation. Objective: GENERAL: cooperative HEENT: Atraumatic; moist oral mucosa EYES; Anicteric, Normal Conjunctiva NECK; supple, normal thyroid, RESPIRATORY: Diminished to auscultation bilaterally, CARDIOVASCULAR: Regular S1 S2, no audible murmurs GI: soft, non-tender, normoactive bowel sounds, : No Renal angle tenderness; EXTREMITIES: Cool to touch. MUSCULOSKELETAL: No Joint Tenderness; NEURO: Awake; no lateralizing signs. SKIN: Stasis dermatitis involving both lower extremities PSYCH; flat affect Vitals/I&O's: Vital Signs Temp Pulse Resp BP Pulse Ox 97.4 F L 63 20 H 125/58 H 98 12/04/18 03:00 12/04/18 07:00 12/04/18 03:00 12/04/18 03:00 12/04/18 03:00 Oxygen Flow Rate (L/min) 3 Oxygen Delivery Method Nasal Cannula Weight: 93.4 kg Body Mass Index (BMI) 30.4 Finger Stick Blood Glucose 145 Intake and Output for Last 24 Hours 12/02/18 12/03/18 12/04/18 23:59 23:59 23:59 Intake Total 910 / 910 730 / 730 50 / 50 Output Total 2610 / 2610 100 / 100 0 / 0 Balance -1700 / -1700 630 / 630 50 / 50 Microbiology Past 72 Hours 11/29/18 06:45 Blood Culture (Wb)#3 - Line Draw Blood Culture - Final No growth in 5 days. 11/28/18 14:04 Blood Culture (Wb) - No Site/Description Given Blood Culture - Final No growth in 5 days. 11/28/18 10:48 Blood Culture (Wb) - Left Hand Blood Culture - Final No growth in 5 days. 11/29/18 03:45 Urine Catheter - Vincent Urine Culture - Final Culture exhibits no growth. Laboratory Results 12/03/18 11:24: POC Glucose 146 H 12/03/18 16:27: POC Glucose 142 H 12/03/18 21:12: POC Glucose 139 H 12/04/18 05:05: Sodium 141, Potassium 4.3, Chloride 103, Carbon Dioxide 30.0, Anion Gap 8, BUN 36 H, Creatinine 4.74 H, Estim Creat Clear Calc 10.03, Est GFR (MDRD) Af Amer 12 L, Est GFR (MDRD) Non-Af 10 L, BUN/Creatinine Ratio 7.6 L, Glucose 87, Calcium 8.3 L 12/04/18 07:23: POC Glucose 76 Current Medications Acetaminophen (Tylenol) 1,000 mg PO Q6H PRN PRN PRN Reason: PAIN Last Admin: 12/04/18 04:42 Dose: 1,000 mg Amiodarone HCl (Cordarone) 200 mg PO DAILY [facility] Last Admin: 12/03/18 09:59 Dose: 200 mg Calamine/Phenol (Calmoseptine Ointment) 1 applic TOPICAL TID [facility]; Protocol Last Admin: 12/04/18 04:41 Dose: 1 applicatio Dextrose (D50w Syringe) 0 gm IV X1 PRN; Protocol PRN Reason: Hypoglycemia Last Admin: 12/03/18 05:25 Dose: 25 gm Epoetin Joe (Procrit) 5,000 units IV MoWeFr [facility] Last Admin: 12/02/18 11:50 Dose: Not Given Glucagon () 1 mg IM .X1 PRN PRN Reason: Hypoglycemia Sodium Chloride () 250 mls @ 15 mls/hr IV .[id number] PRN PRN Reason: SALINE FLUSH Last Admin: 11/28/18 18:49 Dose: 15 mls/hr Insulin Glargine (Lantus (Bkc)) 10 units SC 1100 [facility] Last Admin: 12/03/18 12:01 Dose: 10 units Insulin Human Lispro (Humalog Kwikpen (Bkc)) 0 unit SC ACHS [facility]; Protocol Last Admin: 12/04/18 08:09 Dose: Not Given Lactic Acid (Lac-Hydrin, Amlactin) 1 applic TOPICAL BID [facility]; Protocol Last Admin: 12/03/18 21:08 Dose: 1 applicatio Metoclopramide HCl (Reglan) 10 mg PO BID [facility] Last Admin: 12/03/18 21:06 Dose: 10 mg Ondansetron HCl (Zofran) 4 mg IV Q6H PRN PRN PRN Reason: NAUSEA/VOMITING Last Admin: 12/03/18 17:04 Dose: 4 mg Pantoprazole Sodium (Protonix) 40 mg PO BID [facility] Last Admin: 12/03/18 21:06 Dose: 40 mg Sevelamer Carbonate (Renvela) 800 mg PO TIDCM [facility] Last Admin: 12/03/18 16:35 Dose: 800 mg Sodium Chloride () 5 - 15 ml IV UD PRN PRN Reason: SALINE FLUSH Last Admin: 12/04/18 05:08 Dose: 10 ml Medical Necessity - Tobacco Use Smoking Status: Former smoker Assessment/Plan Patient is a 78-year-old lady with multiple comorbidities including end-stage renal disease on dialysis presented to the emergency department apparently following a fall without loss of consciousness. Patient was found to be hypotensive on arrival and assessment of septic shock without etiology made admitted to the intensive care unit for resuscitation 1. Septic shock of undetermined etiology patient remains on broad-spectrum antibiotic therapy with cefepime as well as vancomycin in addition to norepinephrine titrated to keep map greater than 65. Patient cultures obtained on admission have so far remained negative to date. Stool for C. difficile pending. Chest x-ray obtained on admission demonstrated Blunting of the left costophrenic angle with findings suggestive of scarring at the left lung base. CT of the abdomen and pelvis with contrast performed on 09/28/2019 demonstrated Nonspecific acute inflammatory bowel disease involving the descending colon with trace of free fluid in the paracolic gutter and pelvis There are also diverticular changes within the descending and sigmoid colon however due to the length of the involved segment of inflamed bowel diverticulitis is less likely to be etiology. She was weaned off pressors on the morning of 12/01/2018. Patient has improved clinically. No source of her infection has been found to date regardless patient has improved with treatment. Patient condition did stabilize with treatment. 2. End-stage renal disease on hemodialysis on ,, 3. Hypertension antihypertensives on hold in view of patient presenting with septic shock 4. 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 Patient long-acting insulin dose subsequently adjusted. 5. Paroxysmal atrial fibrillation patient is on amiodarone for rate control as well as systemic anticoagulation with Eliquis Eliquis held on 12/04/2018 as a result of reported vagina bleed. 2. CAD with previous 9 stent placement 7. Ischemic cardiomyopathy status post AICD placement 8. Dyslipidemia-patient is on statin therapy, continued at home dose 9. Chronic hypoxic respiratory failure patient is on baseline home O2 at his ECF 10. Elevated troponin secondary to demand ischemia 11. Postmenopausal vagina bleed. Patient on Eliquis held transvaginal ultrasound ordered for subsequent evaluation. 12. DVT prophylaxis she was on Eliquis held due to above reason Code Visit Inpatient E&M: 43443 Subs Hosp L2
[2018-12-04] MEDS: Ammonium Lactate 225 gm Bottle 1 APPLIC TOPICAL ×2 (09:07→23:21)
[2018-12-04] MEDS: Metoclopramide 10 MG Tablet PO ×2 (09:07→23:21)
[2018-12-04] MEDS: SEVELAMER CARBONATE 800 MG TABLET PO ×3 (09:07→16:18)
[2018-12-04] MEDS: Amiodarone 200 MG Tablet PO (09:07)
[2018-12-04] MEDS: Pantoprazole Sodium 40 MG Tablet PO ×2 (09:07→23:21)
[2018-12-04] MEDS: oxyCODONE 5 MG Tablet PO ×2 (11:34→16:18)
[2018-12-04] MEDS: Insulin Lispro 100 UNIT/ML INSULN.PEN SC (11:35)
[2018-12-04 11:42] LABS: Bedside Glucose 233 mg/dL (70-110)
[2018-12-04 16:51] LABS: Bedside Glucose 81 mg/dL (70-110)
--- NOTE | 2018-12-04 17:00 | PCM.PN.REN ---
Subjective: No nausea No vomiting. No SOB - Physical Exam General: Alert, Oriented x3 HEENT: Atraumatic Oral: Moist Mucosa Neck: Supple, No JVD Lungs: Clear to auscultation, Normal air movement, No rhonchi, No wheeze Cardiovascular: Regular rate, Regular Rhythm, Normal S1, Normal S2 Abdomen: Bowel Sounds Present, Soft, Non Tender Extremities: Edema - +1 edema of LE Musculoskeletal: No Muscle Wasting Lymphatic: No Cervical, Supraclavicular, or Inguinal Adenopathy Neurological: Cranial nerves II-XII grossly intact, Neuro grossly intact Psych/Mental Status: Normal Affect Vital Signs Temp Pulse Resp BP Pulse Ox 98.3 F 65 16 118/67 96 12/04/18 15:10 12/04/18 15:10 12/04/18 15:10 12/04/18 15:10 12/04/18 15:10 Oxygen Flow Rate (L/min) 2 Oxygen Delivery Method Nasal Cannula Weight: 93.4 kg Body Mass Index (BMI) 30.4 Finger Stick Blood Glucose 145 Intake and Output for Last 24 Hours 12/02/18 12/03/18 12/04/18 23:59 23:59 23:59 Intake Total 910 / 910 730 / 730 530 / 530 Output Total 2610 / 2610 100 / 100 0 / 0 Balance -1700 / -1700 630 / 630 530 / 530 Microbiology Past 72 Hours 11/29/18 06:45 Blood Culture - Final Blood Culture (Wb)#3 - Line Draw No growth in 5 days. 11/28/18 14:04 Blood Culture - Final Blood Culture (Wb) - No Site/Description Given No growth in 5 days. 11/28/18 10:48 Blood Culture - Final Blood Culture (Wb) - Left Hand No growth in 5 days. Laboratory Tests Past 24 Hrs 12/04/18 05:05 Sodium 141 Potassium 4.3 Chloride 103 Carbon Dioxide 30.0 Anion Gap 8 BUN 36 H Creatinine 4.74 H Estim Creat Clear Calc 10.03 Est GFR (MDRD) Af Amer 12 L Est GFR (MDRD) Non-Af 10 L BUN/Creatinine Ratio 7.6 L Glucose 87 Calcium 8.3 L POC Glucose 12/04/18 12/04/18 12/04/18 16:26 11:32 07:23 POC Glucose 81 233 H 76 12/03/18 21:12 POC Glucose 139 H Medical Necessity - Tobacco Use Smoking Status: Former smoker Assessment/Plan 1-End stage renal disease on Wednesday hemodialysis schedule. Last HD session 12/02. No indication for HD today Next session Tuesday 12/05 2-Septic shock. Better. Off pressors off Abx now 3-anemia: Continue WILLY as per the chronic HD order 4- BMD: Continue sevelamer TID with meals. P level improved. Renal team will continue to follow Please call with any question or concern. Jonna Martin MD [phone]
[2018-12-04 23:41] LABS: Bedside Glucose 81 mg/dL (70-110)
[2018-12-05] VITALS (11 sets, daily range): BP systolic 94–128; BP diastolic 51–57; PULSE 60–69; RESP 14–20; TEMP 36.4–36.9; O2SAT 91–100
[2018-12-05] MEDS: oxyCODONE 5 MG Tablet PO ×2 (01:38→16:43)
[2018-12-05 06:37] LABS: Bedside Glucose 62 mg/dL (70-110)
[2018-12-05] MEDS: Ammonium Lactate 225 gm Bottle 1 APPLIC TOPICAL ×2 (08:18→21:20)
[2018-12-05] MEDS: SEVELAMER CARBONATE 800 MG TABLET PO ×3 (08:19→12:49)
--- NOTE | 2018-12-05 09:14 | PCM.PN.REN ---
Subjective: Patient denied any nausea or vomiting, no shortness of breath. Still complaining of right-sided rib cage pain - Physical Exam General: Alert, Oriented x3 HEENT: Atraumatic Oral: Moist Mucosa Neck: Supple, No JVD Lungs: Clear to auscultation, Normal air movement, No rhonchi, No wheeze Cardiovascular: Regular rate, Regular Rhythm, Normal S1 Abdomen: Bowel Sounds Present, Soft, Non-Distended Extremities: No clubbing, No cyanosis, Edema - +1 edema of lower extremities and upper extremities Musculoskeletal: No Muscle Wasting Lymphatic: No Cervical, Supraclavicular, or Inguinal Adenopathy Neurological: Cranial nerves II-XII grossly intact, Neuro grossly intact Vital Signs Temp Pulse Resp BP Pulse Ox 97.5 F L 66 20 H 112/57 L 91 12/05/18 03:10 12/05/18 03:10 12/05/18 03:10 12/05/18 03:10 12/05/18 07:50 Oxygen Flow Rate (L/min) 2 Oxygen Delivery Method Nasal Cannula Weight: 93.5 kg Body Mass Index (BMI) 30.4 Finger Stick Blood Glucose 145 Intake and Output for Last 24 Hours 12/03/18 12/04/18 12/05/18 23:59 23:59 23:59 Intake Total 730 / 730 580 / 580 Output Total 100 / 100 0 / 0 Balance 630 / 630 580 / 580 Microbiology Past 72 Hours 11/29/18 06:45 Blood Culture - Final Blood Culture (Wb)#3 - Line Draw No growth in 5 days. 11/28/18 14:04 Blood Culture - Final Blood Culture (Wb) - No Site/Description Given No growth in 5 days. 11/28/18 10:48 Blood Culture - Final Blood Culture (Wb) - Left Hand No growth in 5 days. POC Glucose 12/05/18 12/04/18 12/04/18 06:31 23:24 16:26 POC Glucose 62 L 81 81 12/04/18 11:32 POC Glucose 233 H Medical Necessity - Tobacco Use Smoking Status: Former smoker Assessment/Plan 1-End stage renal disease on Wednesday hemodialysis schedule. Dialysis session today. 2-Septic shock. Better. Off pressors off Abx now 3-anemia: Continue WILLY as per the chronic HD order 4- BMD: Continue sevelamer TID with meals. P level improved. Renal team will continue to follow Please call with any question or concern. Jonna Martin MD [phone]
--- NOTE | 2018-12-05 10:12 | PCM.EXTCARCO ---
- Diet 11/30/18 16:26 Diet: Regular Diet Is pt able to select menu?: Yes Diet Comments: advance as tolerated - Routine Orders/Code Status Enema Type: Fleetz Enema Frequency: Daily PRN Suppository Type: Dulcolax 10mg Suppository Frequency: Daily PRN O2 Liters per Minute: 2-4 O2 Frequency: Continuous Keep PO Greater than or Equal to (%): 90 Routine Lab Work: CBC, BMP, - - Q Week Code [facility] - Wound(s) abdomen Wound Type: scratches Left Foot, 4th digit Wound Type: Abrasion Dressing Change: Dry Sterile Dressing BLE Wound Type: scratches - Suggestions for Active Care Change Position every (hours): 2 Times a day to sit in chair: 3 - Therapies Physical Therapy: Eval and Treat Occupational Therapy: Eval and Treat - Problem/Diagnosis (1) Hx of atrioventricular node ablation Status: Chronic Comment: AV node RFA X2 noriega per report;Subsequent implant of single chamber ICD per Dr. 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 Cheung @ [facility]. Also subsequent PCI's :PCI X 6 to RCA in 2013; PCI X 3 in 2014: reports not available but referenced in Dr. Saunders's office visit dated 05/24/2018 Current Visit: No (4) History of ventricular septal myectomy Status: Chronic Comment: Septal Myectomy and CABG X 2 with Left internal thoracic artery to the LAD, and reversed SVG of the PDA per Dr. Cheung @ [facility] Current Visit: No (5) S/P CABG x 2 Status: Chronic Comment: Septal Myectomy and CABG X 2 with Left internal thoracic artery to the LAD, and reversed SVG of the PDA per Dr. Cheung @ [facility] Current Visit: No (6) Hypertension Status: Chronic Current Visit: No (7) Hyperlipidemia Status: Chronic Current Visit: No (8) Type 2 diabetes mellitus Status: Chronic Current Visit: No (9) COPD (chronic obstructive pulmonary disease) Status: Chronic Current Visit: No (10) Chronic hypoxemic respiratory failure Status: Chronic Current Visit: No (11) Atrial fibrillation Status: Chronic Current Visit: No (12) Presence of combination internal cardiac defibrillator (ICD) and pacemaker Status: Chronic Comment: Initial single chamber ICD implant was 12/19/[address] Loya @ [facility] [place]. S/P EP/RFA; subsequent upgrade to combination pacer/ICD implant 12/11/16 [facility] [facility] [employer] VR [id number] Current Visit: No (13) End stage renal disease Status: Chronic Current Visit: No (14) Diabetic neuropathy Status: Chronic Current Visit: No (15) Peripheral vascular disease Status: Chronic Current Visit: No (16) Venous insufficiency of both lower extremities Status: Chronic Current Visit: No (17) Congestive heart failure Status: Chronic Current Visit: No (18) History of PTCA Status: Chronic Comment: PCI X 6 to RCA in 2013; PCI X 3 in 2014: reports not available but referenced in Dr. Saunders's office visit dated 05/24/2018 Current Visit: No (19) Septic shock Status: Acute Current Visit: Yes - Allergies/Procedures Done in Hospital Allergies/Adverse Reactions: Allergies latex Allergy (Verified 11/12/18 16:07) Anaphylaxis meperidine [From Demerol] Allergy (Verified 11/12/18 16:07) Hives Penicillins Allergy (Verified 11/12/18 16:07) Hives Tetracyclines Allergy (Verified 11/12/18 16:07) Hives aspirin Adverse Reaction (Verified 11/12/18 16:07) Unknown atorvastatin Adverse Reaction (Verified 11/12/18 16:07) Unknown codeine Adverse Reaction (Verified 11/12/18 16:07) Unknown hydromorphone [From Dilaudid] Adverse Reaction (Verified 11/12/18 16:07) Unknown pentazocine Adverse Reaction (Verified 11/12/18 16:07) Unknown pioglitazone Adverse Reaction (Verified 11/12/18 16:07) Unknown propoxyphene Adverse Reaction (Verified 11/12/18 16:07) Unknown sulfamethoxazole [From Bactrim] Adverse Reaction (Verified 11/12/18 16:07) Unknown trimethoprim [From Bactrim] Adverse Reaction (Verified 11/12/18 16:07) Unknown chloroprep Allergy (Uncoded 11/12/18 16:07) Unknown - Type of Care/Length of Stay Estimated LOS: More Than 30 Days Type of Care Needed: Skilled Rehab Potential: Fair Prognosis: Fair - Additional Orders/Day of Discharge H&P will serve as current which was dated: 11/28/18 Day of Discharge: 12/05/18 - Dietary and Speech Recommendations Dietitian Recommendations/Changes: Rec diet change to cardiac, low sodium diet d/t poor po intake and increased needs r/t dialysis tx. Would benefit from ONS such as Nepro CarbSteady but pt continues to refuse. Rec consider appetite stimulant re: poor po intake. - Follow Up Care Primary Care Physician: Mook Rain MD [Primary Care Provider] - Please follow up with your Primary Care Physician in: 1 Week Please Follow Up With: Jonna Martin MD When: As scheduled, continue dialysis [facility] Fer[facility]
--- NOTE | 2018-12-05 10:17 | TREXTCA.CO_ITS ---
- Diet 11/30/18 16:26 Diet: Regular Diet Is pt able to select menu?: Yes Diet Comments: advance as tolerated - Routine Orders/Code Status Enema Type: Fleetz Enema Frequency: Daily PRN Suppository Type: Dulcolax 10mg Suppository Frequency: Daily PRN O2 Liters per Minute: 2-4 O2 Frequency: Continuous Keep PO Greater than or Equal to (%): 90 Routine Lab Work: CBC, BMP, - - Q Week [facility] W[facility](s) abdomen Wound Type: scratches Left Foot, 4th digit Wound Type: Abrasion Dressing Change: Dry Sterile Dressing BLE Wound Type: scratches - Suggestions for Active Care Change Position every (hours): 2 Times a day to sit in chair: 3 - Therapies Physical Therapy: Eval and Treat Occupational Therapy: Eval and Treat - Problem/Diagnosis (1) Hx of atrioventricular node ablation Status: Chronic Comment: AV node RFA X2 noriega per report;Subsequent implant of single chamber ICD per Dr. 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 Cheung @ [facility]. Also subsequent PCI's :PCI X 6 to RCA in 2013; PCI X 3 in 2014: reports not available but referenced in Dr. Saunders's office visit dated 05/24/2018 Current Visit: No (4) History of ventricular septal myectomy Status: Chronic Comment: Septal Myectomy and CABG X 2 with Left internal thoracic artery to the LAD, and reversed SVG of the PDA per Dr. Cheung @ [facility] Current Visit: No (5) S/P CABG x 2 Status: Chronic Comment: Septal Myectomy and CABG X 2 with Left internal thoracic artery to the LAD, and reversed SVG of the PDA per Dr. Cheung @ [facility] Current Visit: No (6) Hypertension Status: Chronic Current Visit: No (7) Hyperlipidemia Status: Chronic Current Visit: No (8) Type 2 diabetes mellitus Status: Chronic Current Visit: No (9) COPD (chronic obstructive pulmonary disease) Status: Chronic Current Visit: No (10) Chronic hypoxemic respiratory failure Status: Chronic Current Visit: No (11) Atrial fibrillation Status: Chronic Current Visit: No (12) Presence of combination internal cardiac defibrillator (ICD) and pacemaker Status: Chronic Comment: Initial single chamber ICD implant was 12/19/[address] Loya @ [facility] [place]. S/P EP/RFA; subsequent upgrade to combination pacer/ICD implant 12/11/16 [facility] VR [id number] Current Visit: No (13) End stage renal disease Status: Chronic Current Visit: No (14) Diabetic neuropathy Status: Chronic Current Visit: No (15) Peripheral vascular disease Status: Chronic Current Visit: No (16) Venous insufficiency of both lower extremities Status: Chronic Current Visit: No (17) Congestive heart failure Status: Chronic Current Visit: No (18) History of PTCA Status: Chronic Comment: PCI X 6 to RCA in 2013; PCI X 3 in 2014: reports not available but referenced in Dr. Saunders's office visit dated 05/24/2018 Current Visit: No (19) Septic shock Status: Acute Current Visit: Yes - Allergies/Procedures Done in Hospital Allergies/Adverse Reactions: Allergies latex Allergy (Verified 11/12/18 16:07) Anaphylaxis meperidine [From Demerol] Allergy (Verified 11/12/18 16:07) Hives Penicillins Allergy (Verified 11/12/18 16:07) Hives Tetracyclines Allergy (Verified 11/12/18 16:07) Hives aspirin Adverse Reaction (Verified 11/12/18 16:07) Unknown atorvastatin Adverse Reaction (Verified 11/12/18 16:07) Unknown codeine Adverse Reaction (Verified 11/12/18 16:07) Unknown hydromorphone [From Dilaudid] Adverse Reaction (Verified 11/12/18 16:07) Unknown pentazocine Adverse Reaction (Verified 11/12/18 16:07) Unknown pioglitazone Adverse Reaction (Verified 11/12/18 16:07) Unknown propoxyphene Adverse Reaction (Verified 11/12/18 16:07) Unknown sulfamethoxazole [From Bactrim] Adverse Reaction (Verified 11/12/18 16:07) Unknown trimethoprim [From Bactrim] Adverse Reaction (Verified 11/12/18 16:07) Unknown chloroprep Allergy (Uncoded 11/12/18 16:07) Unknown - Type of Care/Length of Stay Estimated LOS: More Than 30 Days Type of Care Needed: Skilled Rehab Potential: Fair Prognosis: Fair - Additional Orders/Day of Discharge H&P will serve as current which was dated: 11/28/18 Day of Discharge: 12/05/18 - Dietary and Speech Recommendations Dietitian Recommendations/Changes: Rec diet change to cardiac, low sodium diet d/t poor po intake and increased needs r/t dialysis tx. Would benefit from ONS such as Nepro CarbSteady but pt continues to refuse. Rec consider appetite stimulant re: poor po intake. - Follow Up Care Primary Care Physician: Mook Rain MD [Primary Care Provider] - Please follow up with your Primary Care Physician in: 1 Week Please Follow Up With: Jonna Martin MD When: As scheduled, continue dialysis Jose A Ferreira
--- NOTE | 2018-12-05 10:18 | PCM.DC.SUM ---
<Mariluz Gaffney - Last Filed: 12/05/18 11:10> Discharge Date and Diagnosis Date of Admission: 11/28/18 Date of Discharge: 12/05/18 - Primary Discharge Diagnosis Active and Suspected Problems (Last Reviewed 06/14/18 @ 10:42 by Arline Galindo) 1. Septic shock, unclear source 2. ESRD on hemodialysis 3. Possible postmenopausal vaginal bleeding, resolved-transvaginal ultrasound unremarkable. 4. Elevated troponin, secondary to demand ischemia as result of #1 5. Chronic hypoxic respiratory failure 6. Hypertension 7. Hyperlipidemia 8. Ischemic cardiomyopathy status post AICD placement 9. Paroxysmal atrial fibrillation 10. Type 2 diabetes mellitus 11. Obesity - Secondary Discharge Diagnosis Chronic Problems (Last Updated 06/16/18 @ 10:57 by Arline Galindo) Hx of atrioventricular node ablation (Chronic 12/19/14) AV node RFA X2 noriega per report;Subsequent implant of single chamber ICD per Dr. Loya @ [facility], [place] [employer] 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 (Chronic) Atherosclerotic heart disease of [place] coronary artery without angina pectoris (Chronic) Septal Myectomy and CABG X 2 with Left internal thoracic artery to the LAD, and reversed SVG of the PDA per Dr. Cheung @ [facility]. Also subsequent PCI's :PCI X 6 to RCA in 2013; PCI X 3 in 2014: reports not available but referenced in Dr. Saunders's office visit dated 05/24/2018 History of ventricular septal myectomy (Chronic 07/18/04) Septal Myectomy and CABG X 2 with Left internal thoracic artery to the LAD, and reversed SVG of the PDA per Dr. Cheung @ [facility] S/P CABG x 2 (Chronic 07/18/04) Septal Myectomy and CABG X 2 with Left internal thoracic artery to the LAD, and reversed SVG of the PDA per Dr. Cheung @ [facility] Hypertension (Chronic) Hyperlipidemia (Chronic) Type 2 diabetes mellitus (Chronic) COPD (chronic obstructive pulmonary disease) (Chronic) Chronic hypoxemic respiratory failure (Chronic) Atrial fibrillation (Chronic) 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 12/11/16) Initial single chamber ICD implant was 12/19/[address] Loya @ [facility] [place]. S/P EP/RFA; subsequent upgrade to combination pacer/ICD implant 12/11/16 [employer] VR [id number] End stage renal disease (Chronic) Diabetic neuropathy (Chronic) Peripheral vascular disease (Chronic) Venous insufficiency of both lower extremities (Chronic) Congestive heart failure (Chronic) History of PTCA (Chronic) PCI X 6 to RCA in 2013; PCI X 3 in 2014: reports not available but referenced in Dr. Saunders's office visit dated 05/24/2018 Hospital Course and Treatment Imaging Results: Diagnostic Data Brain CT 11/28/18 10:21 IMPRESSION: Chronic involutional changes of the brain. Electronically Signed: Demario Jha DO at 12:53 EST Tel , Service support , Pelvis X-Ray 11/28/18 12:07 IMPRESSION: No acute findings Electronically Signed: Demario Jha DO at 12:41 EST Tel , Service support , Chest X-Ray 11/28/18 18:08 IMPRESSION: Small left pleural effusion and left lower lobe atelectasis. No evidence for pneumothorax status post central line placement Electronically Signed: Kevin Garzon MD at 19:10 EST , Service support , Abdomen/Pelvis CT 11/29/18 08:50 IMPRESSION: Nonspecific acute inflammatory bowel disease involving the descending colon with trace of free fluid in the paracolic gutter and pelvis There are also diverticular changes within the descending and sigmoid colon however due to the length of the involved segment of inflamed bowel diverticulitis is less likely to be etiology. Electronically Signed: Kevin Garzon MD at 16:57 EST , Service support , Transvaginal US 12/04/18 00:50 IMPRESSION: Nonvisualized uterus and ovaries. No pelvic free fluid or obvious mass. Electronically Signed: Abbe Ahn MD at 13:07 EST , Service support , Consultations 11/28/18 15:07 Consult: Onc/Wound/synthetic gem press operator Routine Comment: Dr. Martin- Nephrology Dr. Smith- B[employer] Scaler Operations: None Procedures: Dialysis Summary of Care Provided: The patient is a 78 year old F admitted 11/28/18 due to fall. 1. Septic shock, unclear source-patient initially required ICU for vasopressor therapy due to hypotension. Patient was treated with broad-spectrum antibiotics and improved clinically. Blood cultures negative. Chest x-ray without acute process. CT of abdomen and pelvis showed nonspecific acute inflammatory bowel disease involving the descending colon with trace of free fluid in the pericolic gutter and pelvis. Diverticular changes within the descending and sigmoid colon. Patient improved and further antibiotics discontinued. Patient will follow-up with primary care physician 1 week. 2. ESRD on hemodialysis-follows with nephrology, hemodialysis Wednesday, Wednesday, Wednesday. Patient to have dialysis prior to discharge. Continue follow-up with nephrology as scheduled. 3. Possible postmenopausal vaginal bleeding, resolved-transvaginal ultrasound unremarkable. Eliquis resumed. Will need continued monitoring. 4. Elevated troponin, secondary to demand ischemia as result of #1 5. Chronic hypoxic respiratory failure-on baseline home O2. Continue supplement oxygen to maintain O2 at or above 90%. 6. Hypertension-home lisinopril regimen discontinued. Metoprolol decreased to 12.5 mg p.o. daily. 7. Hyperlipidemia- continue statin. 8. Ischemic cardiomyopathy status post AICD placement 9. Paroxysmal atrial fibrillation-on amiodarone, Eliquis. Eliquis reduced to 2.5 mg p.o. twice daily given renal function. Metoprolol decreased to 12.5 mg p.o. daily. 10. Type 2 diabetes mellitus-home long-acting regimen decreased to 10 units daily due to hypoglycemia. 11. Obesity-encouraged diet lifestyle modifications. General: Alert, Cooperative, No apparent distress HEENT: Atraumatic, PERRLA, Normocephalic Oral: No Gingival or Mucosal Lesions/ Ulcerations Neck: Supple, No Nodes, Trachea Midline Lungs: No rhonchi, No wheeze, No rales, Diminished Cardiovascular: Regular rate, Regular Rhythm, Normal S1, Normal S2, No murmurs Abdomen: Bowel Sounds Present, Soft, Non Tender, Obese Extremities: No clubbing, No cyanosis, nonpitting edema bilateral lower extremities and right upper extremity. Skin: Chronic lower extremity venous stasis dermatitis, superficial ulcerations. Musculoskeletal: No Tenderness to Palpation of Joints or Extremities Lymphatic: No Cervical, Supraclavicular, or Inguinal Adenopathy Neurological: Neuro grossly intact Psych/Mental Status: Normal Affect, Appropriate Patient seen and examined prior to discharge. Physical assessment as noted above. Patient is stable for discharge with follow up recommendations as noted above. This patient was seen by JUNAID Cason under the supervision of Dr. Aquino. - Physical Exam Vital Signs Temp Pulse Resp BP Pulse Ox 98.4 F 67 14 107/51 L 100 12/05/18 09:33 12/05/18 09:33 12/05/18 09:33 12/05/18 09:33 12/05/18 09:33 Oxygen Flow Rate (L/min) 2 Oxygen Delivery Method Nasal Cannula Weight: 206 lb 2.115 oz Body Mass Index (BMI) 30.4 Finger Stick Blood Glucose 145 Intake and Output for Last 24 Hours 12/03/18 12/04/18 12/05/18 23:59 23:59 23:59 Intake Total 730 / 730 580 / 580 Output Total 100 / 100 0 / 0 Balance 630 / 630 580 / 580 Microbiology Past 72 Hours 11/29/18 06:45 Blood Culture - Final Blood Culture (Wb)#3 - Line Draw No growth in 5 days. 11/28/18 14:04 Blood Culture - Final Blood Culture (Wb) - No Site/Description Given No growth in 5 days. 11/28/18 10:48 Blood Culture - Final Blood Culture (Wb) - Left Hand No growth in 5 days. POC Glucose 12/05/18 12/04/18 12/04/18 06:31 23:24 16:26 POC Glucose 62 L 81 81 12/04/18 11:32 POC Glucose 233 H Home Medications: Medications to take at Discharge Metoclopramide [Reglan] 10 mg PO BID 11/04/18 Pregabalin [Lyrica] 25 mg PO DAILY 11/04/18 Rosuvastatin Calcium [Crestor] 20 mg PO QHS 11/12/18 Amiodarone HCl 200 mg PO DAILY 11/28/18 Diphenhydramine HCl 25 mg PO Q6H PRN PRN 11/28/18 Docusate Sodium [Colace] 100 mg PO BID PRN 11/28/18 Loperamide HCl [Loperamide] 2 mg PO Q6H PRN PRN 11/28/18 Magnesium Hydroxide [Milk Of Magnesia] 30 ml PO DAILY PRN PRN 11/28/18 Miconazole 100 gm TP BID 11/28/18 Nut.tx.impaired Renal Fxn,Soy [Novasource Renal 2 Dre] 240 ml PO BID 11/28/18 Pantoprazole Sodium [Protonix] 40 mg PO DAILY 11/28/18 Pregabalin [Lyrica] 25 mg PO MOWEFR 11/28/18 Apixaban [Eliquis] 2.5 mg PO BID #0 12/05/18 Insulin Glargine [Lantus SoloStar Pen] 10 units SC 1100 pen 12/05/18 Menthol/Lanolin/Calamine/Znox [Calmoseptine Ointment] 1 applic TOPICAL TID tube 12/05/18 Metoprolol Succinate 12.5 mg PO DAILY #0 12/05/18 Sevelamer Carbonate [Renvela] 800 mg PO TIDCM #10 tablet 12/05/18 Following Prescrptions Were Given to Patient: Sevelamer Carbonate [Renvela] 800 mg PO TIDCM #10 tablet Primary Care Physician: Mook Rain MD [Primary Care Provider] - Please follow up with your Primary Care Physician in: 1 Week Please Follow Up With: Jonna Martin MD When: As scheduled, continue dialysis M,W.F Disposition: Correction facility Minutes spent on discharge:: 35 Patient Condition:: Stable Medical Necessity - Tobacco Use Smoking Status: Former smoker Meaningful Use Info Meaningful Use Diagnoses (Choose all that apply): None applicable <Manuel Aquino E - Last Filed: 12/05/18 13:47> Discharge Date and Diagnosis - Secondary Discharge Diagnosis Chronic Problems (Last Updated 06/16/18 @ 10:57 by Arline Galindo) Hx of atrioventricular node ablation (Chronic 12/19/14) AV node RFA X2 noriega per report;Subsequent implant of single chamber ICD per Dr. Loya @ [facility], [place] special loan officer 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 (Chronic) Atherosclerotic heart disease of [place] coronary artery without angina pectoris (Chronic) Septal Myectomy and CABG X 2 with Left internal thoracic artery to the LAD, and reversed SVG of the PDA per Dr. Cheung @ [facility]. Also subsequent PCI's :PCI X 6 to RCA in 2013; PCI X 3 in 2014: reports not available but referenced in Dr. Saunders's office visit dated 05/24/2018 History of ventricular septal myectomy (Chronic 07/18/04) Septal Myectomy and CABG X 2 with Left internal thoracic artery to the LAD, and reversed SVG of the PDA per Dr. Cheung @ [facility] S/P CABG x 2 (Chronic 07/18/04) Septal Myectomy and CABG X 2 with Left internal thoracic artery to the LAD, and reversed SVG of the PDA per Dr. Cheung @ [facility] Hypertension (Chronic) Hyperlipidemia (Chronic) Type 2 diabetes mellitus (Chronic) COPD (chronic obstructive pulmonary disease) (Chronic) Chronic hypoxemic respiratory failure (Chronic) Atrial fibrillation (Chronic) 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 12/11/16) Initial single chamber ICD implant was 12/19/[address] Loya @ [facility] [place]. S/P EP/RFA; subsequent upgrade to combination pacer/ICD implant 12/11/16 [employer] VR [id number] End stage renal disease (Chronic) Diabetic neuropathy (Chronic) Peripheral vascular disease (Chronic) Venous insufficiency of both lower extremities (Chronic) Congestive heart failure (Chronic) History of PTCA (Chronic) PCI X 6 to RCA in 2013; PCI X 3 in 2014: reports not available but referenced in Dr. Saunders's office visit dated 05/24/2018 Hospital Course and Treatment Consultations 11/28/18 15:07 Consult: Onc/Wound/synthetic gem press operator Routine Comment: Summary of Care Provided: Hospitalist note: Discharge summary above reviewed and I agree and concur with the above discharge and treatment plan. Patient presented to the emergency room because of fall, found to have findings consistent with shock which is initially attributed to hypovolemic shock versus septic shock. Initially, patient was admitted to intensive care unit and started on IV vasopressors due to hypotension. She was started empirically on IV antibiotics as well because of chronic bilateral leg wounds. There was no obvious source of infection identified. Her blood culture showed no growth in 5 days and also repeat blood culture showed no growth in 5 days as well. Urine culture showed no growth. Stool for C. difficile was negative. Stool for enteric pathogens was negative as well. Respiratory panel for viruses were negative. With IV fluid therapy and IV antibiotics, and blood pressure stabilized and her lactic acid came down to normal. On admission, lactic acid was 4.8 and with IV fluid therapy, it came down to 1.2. A chest x-ray showed no acute findings, no infiltrate or consolidation. CT scan abdomen showed nonspecific inflammatory changes of the bowel, no definitive diagnosis provided. Her studies came back negative as mentioned above. After treatment, patient was able to maintain her blood pressure and she was transferred to PCU. She was continued on hemodialysis for ESRD and nephrology was consulted. He had an episode of vaginal bleeding which is attributed to postmenopausal bleeding. Hemoglobin and hematocrit remained stable. Transvaginal ultrasound performed and was unremarkable. Patient remained stable on 2 L of oxygen which is her baseline at home. Patient discharged to senior living facility in a stable medical condition, dose of Eliquis adjusted down to 2.5 mg p.o. twice daily, lisinopril discontinued, metoprolol decreased down to 12.5 mg p.o. daily, continued on her other chronic home medications without any changes, recommended follow-up with PCP in 1 week, follow-up with nephrology according to Dr. Martin. - Physical Exam General: Alert, Oriented x3, Cooperative, No apparent distress. HEENT: Atraumatic, PERRLA, EOMI. Neck: Supple, No JVD, Negative Carotid Bruits, Trachea Midline, Thyroid Normal. Lungs: Diminished breath sounds bilateral, otherwise clear, No rhonchi, No wheeze, No rales. Cardiovascular: Regular rate, Regular Rhythm, Normal S1, Normal S2, PMI Normal. Abdomen: Bowel Sounds Present, Soft, Non Tender, Non-Distended, No Hepato-splenomegaly. Extremities: No clubbing, No cyanosis, No edema Skin: No rashes, No breakdown Neurological: Neuro grossly intact Vital Signs are stable. This note was generated with [employer] software. It may contain incorrect words, spelling, and punctuation that were not noted in checking the note before signing. - Physical Exam Vital Signs Temp Pulse Resp BP Pulse Ox 98.4 F 67 14 107/51 L 100 12/05/18 09:33 12/05/18 09:33 12/05/18 09:33 12/05/18 09:33 12/05/18 09:33 Oxygen Flow Rate (L/min) 2 Oxygen Delivery Method Nasal Cannula Weight: 206 lb 2.115 oz Body Mass Index (BMI) 30.4 Finger Stick Blood Glucose 145 Intake and Output for Last 24 Hours 12/03/18 12/04/18 12/05/18 23:59 23:59 23:59 Intake Total 730 / 730 580 / 580 Output Total 100 / 100 0 / 0 Balance 630 / 630 580 / 580 Microbiology Past 72 Hours 11/29/18 06:45 Blood Culture - Final Blood Culture (Wb)#3 - Line Draw No growth in 5 days. 11/28/18 14:04 Blood Culture - Final Blood Culture (Wb) - No Site/Description Given No growth in 5 days. 11/28/18 10:48 Blood Culture - Final Blood Culture (Wb) - Left Hand No growth in 5 days. POC Glucose 12/05/18 12/04/18 12/04/18 06:31 23:24 16:26 POC Glucose 62 L 81 81 Disposition: Correction facility Minutes spent on discharge:: 35 Patient Condition:: Stable Meaningful Use Info Meaningful Use Diagnoses (Choose all that apply): None applicable Code Visit Inpatient E&M: 23769 Disch Hosp
--- NOTE | 2018-12-05 10:28 | DS.PCM_ITS ---
<Mariluz Gaffney - Last Filed: 12/05/18 11:10> Discharge Date and Diagnosis Date of Admission: 11/28/18 Date of Discharge: 12/05/18 - Primary Discharge Diagnosis Active and Suspected Problems (Last Reviewed 06/14/18 @ 10:42 by Arline Galindo) 1. Septic shock, unclear source 2. ESRD on hemodialysis 3. Possible postmenopausal vaginal bleeding, resolved-transvaginal ultrasound unremarkable. 4. Elevated troponin, secondary to demand ischemia as result of #1 5. Chronic hypoxic respiratory failure 6. Hypertension 7. Hyperlipidemia 8. Ischemic cardiomyopathy status post AICD placement 9. Paroxysmal atrial fibrillation 10. Type 2 diabetes mellitus 11. Obesity - Secondary Discharge Diagnosis Chronic Problems (Last Updated 06/16/18 @ 10:57 by Arline Galindo) Hx of atrioventricular node ablation (Chronic 12/19/14) AV node RFA X2 noriega per report;Subsequent implant of single chamber ICD per Dr. Loya @ [facility], [place] [employer] ex[employer] 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 (Chronic) Atherosclerotic heart disease of [place] coronary artery without angina pectoris (Chronic) Septal Myectomy and CABG X 2 with Left internal thoracic artery to the LAD, and reversed SVG of the PDA per Dr. Cheung @ [facility]. Also subsequent PCI's :PCI X 6 to RCA in 2013; PCI X 3 in 2014: reports not available but referenced in Dr. Saunders's office visit dated 05/24/2018 History of ventricular septal myectomy (Chronic 07/18/04) Septal Myectomy and CABG X 2 with Left internal thoracic artery to the LAD, and reversed SVG of the PDA per Dr. Cheung @ [facility] S/P CABG x 2 (Chronic 07/18/04) Septal Myectomy and CABG X 2 with Left internal thoracic artery to the LAD, and reversed SVG of the PDA per Dr. Cheung @ [facility] Hypertension (Chronic) Hyperlipidemia (Chronic) Type 2 diabetes mellitus (Chronic) COPD (chronic obstructive pulmonary disease) (Chronic) Chronic hypoxemic respiratory failure (Chronic) Atrial fibrillation (Chronic) 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 12/11/16) Initial single chamber ICD implant was 12/19/[address] Loya @ [facility] [place]. S/P EP/RFA; subsequent upgrade to combination pacer/ICD implant 12/11/16 [employer] Ellipse VR [id number] End stage renal disease (Chronic) Diabetic neuropathy (Chronic) Peripheral vascular disease (Chronic) Venous insufficiency of both lower extremities (Chronic) Congestive heart failure (Chronic) History of PTCA (Chronic) PCI X 6 to RCA in 2013; PCI X 3 in 2014: reports not available but referenced in Dr. Saunders's office visit dated 05/24/2018 Hospital Course and Treatment Imaging Results: Diagnostic Data Brain CT 11/28/18 10:21 IMPRESSION: Chronic involutional changes of the brain. Electronically Signed: Demario Jha DO at 12:53 EST Tel , Service support , Pelvis X-Ray 11/28/18 12:07 IMPRESSION: No acute findings Electronically Signed: Demario Jha DO at 12:41 EST Tel , Service support , Chest X-Ray 11/28/18 18:08 IMPRESSION: Small left pleural effusion and left lower lobe atelectasis. No evidence for pneumothorax status post central line placement Electronically Signed: Kevin Garzon MD at 19:10 EST , Service support , Abdomen/Pelvis CT 11/29/18 08:50 IMPRESSION: Nonspecific acute inflammatory bowel disease involving the descending colon with trace of free fluid in the paracolic gutter and pelvis There are also diverticular changes within the descending and sigmoid colon however due to the length of the involved segment of inflamed bowel diverticulitis is less likely to be etiology. Electronically Signed: Kevin Garzon MD at 16:57 EST , Service support , Transvaginal US 12/04/18 00:50 IMPRESSION: Nonvisualized uterus and ovaries. No pelvic free fluid or obvious mass. Electronically Signed: Abbe Ahn MD at 13:07 EST , Service support , Consultations 11/28/18 15:07 Consult: Onc/Wound/filler picker Routine Comment: Dr. Martin- Nephrology Dr. Smith- Roofer Assistant Operations: None Procedures: Dialysis Summary of Care Provided: The patient is a 78 year old F admitted 11/28/18 due to fall. 1. Septic shock, unclear source-patient initially required ICU for vasopressor therapy due to hypotension. Patient was treated with broad-spectrum antibiotics and improved clinically. Blood cultures negative. Chest x-ray without acute process. CT of abdomen and pelvis showed nonspecific acute inflammatory bowel disease involving the descending colon with trace of free fluid in the pericolic gutter and pelvis. Diverticular changes within the descending and sigmoid colon. Patient improved and further antibiotics discontinued. Patient will follow-up with primary care physician 1 week. 2. ESRD on hemodialysis-follows with nephrology, hemodialysis Wednesday, Wednesday, Wednesday. Patient to have dialysis prior to discharge. Continue follow-up with nephrology as scheduled. 3. Possible postmenopausal vaginal bleeding, resolved-transvaginal ultrasound unremarkable. Eliquis resumed. Will need continued monitoring. 4. Elevated troponin, secondary to demand ischemia as result of #1 5. Chronic hypoxic respiratory failure-on baseline home O2. Continue supplement oxygen to maintain O2 at or above 90%. 6. Hypertension-home lisinopril regimen discontinued. Metoprolol decreased to 12.5 mg p.o. daily. 7. Hyperlipidemia- continue statin. 8. Ischemic cardiomyopathy status post AICD placement 9. Paroxysmal atrial fibrillation-on amiodarone, Eliquis. Eliquis reduced to 2.5 mg p.o. twice daily given renal function. Metoprolol decreased to 12.5 mg p.o. daily. 10. Type 2 diabetes mellitus-home long-acting regimen decreased to 10 units daily due to hypoglycemia. 11. Obesity-encouraged diet lifestyle modifications. General: Alert, Cooperative, No apparent distress HEENT: Atraumatic, PERRLA, Normocephalic Oral: No Gingival or Mucosal Lesions/ Ulcerations Neck: Supple, No Nodes, Trachea Midline Lungs: No rhonchi, No wheeze, No rales, Diminished Cardiovascular: Regular rate, Regular Rhythm, Normal S1, Normal S2, No murmurs Abdomen: Bowel Sounds Present, Soft, Non Tender, Obese Extremities: No clubbing, No cyanosis, nonpitting edema bilateral lower extremities and right upper extremity. Skin: Chronic lower extremity venous stasis dermatitis, superficial ulcerations. Musculoskeletal: No Tenderness to Palpation of Joints or Extremities Lymphatic: No Cervical, Supraclavicular, or Inguinal Adenopathy Neurological: Neuro grossly intact Psych/Mental Status: Normal Affect, Appropriate Patient seen and examined prior to discharge. Physical assessment as noted above. Patient is stable for discharge with follow up recommendations as noted above. This patient was seen by JUNAID Cason under the supervision of Dr. Aquino. - Physical Exam Vital Signs Temp Pulse Resp BP Pulse Ox 98.4 F 67 14 107/51 L 100 12/05/18 09:33 12/05/18 09:33 12/05/18 09:33 12/05/18 09:33 12/05/18 09:33 Oxygen Flow Rate (L/min) 2 Oxygen Delivery Method Nasal Cannula Weight: 206 lb 2.115 oz Body Mass Index (BMI) 30.4 Finger Stick Blood Glucose 145 Intake and Output for Last 24 Hours 12/03/18 12/04/18 12/05/18 23:59 23:59 23:59 Intake Total 730 / 730 580 / 580 Output Total 100 / 100 0 / 0 Balance 630 / 630 580 / 580 Microbiology Past 72 Hours 11/29/18 06:45 Blood Culture - Final Blood Culture (Wb)#3 - Line Draw No growth in 5 days. 11/28/18 14:04 Blood Culture - Final Blood Culture (Wb) - No Site/Description Given No growth in 5 days. 11/28/18 10:48 Blood Culture - Final Blood Culture (Wb) - Left Hand No growth in 5 days. POC Glucose 12/05/18 12/04/18 12/04/18 06:31 23:24 16:26 POC Glucose 62 L 81 81 12/04/18 11:32 POC Glucose 233 H Home Medications: Medications to take at Discharge Metoclopramide [Reglan] 10 mg PO BID 11/04/18 Pregabalin [Lyrica] 25 mg PO DAILY 11/04/18 Rosuvastatin Calcium [Crestor] 20 mg PO QHS 11/12/18 Amiodarone HCl 200 mg PO DAILY 11/28/18 Diphenhydramine HCl 25 mg PO Q6H PRN PRN 11/28/18 Docusate Sodium [Colace] 100 mg PO BID PRN 11/28/18 Loperamide HCl [Loperamide] 2 mg PO Q6H PRN PRN 11/28/18 Magnesium Hydroxide [Milk Of Magnesia] 30 ml PO DAILY PRN PRN 11/28/18 Miconazole 100 gm TP BID 11/28/18 Nut.tx.impaired Renal Fxn,Soy [Novasource Renal 2 Dre] 240 ml PO BID 11/28/18 Pantoprazole Sodium [Protonix] 40 mg PO DAILY 11/28/18 Pregabalin [Lyrica] 25 mg PO MOWEFR 11/28/18 Apixaban [Eliquis] 2.5 mg PO BID #0 12/05/18 Insulin Glargine [Lantus SoloStar Pen] 10 units SC 1100 pen 12/05/18 Menthol/Lanolin/Calamine/Znox [Calmoseptine Ointment] 1 applic TOPICAL TID tube 12/05/18 Metoprolol Succinate 12.5 mg PO DAILY #0 12/05/18 Sevelamer Carbonate [Renvela] 800 mg PO TIDCM #10 tablet 12/05/18 Following Prescrptions Were Given to Patient: Sevelamer Carbonate [Renvela] 800 mg PO TIDCM #10 tablet Primary Care Physician: Mook Rain MD [Primary Care Provider] - Please follow up with your Primary Care Physician in: 1 Week Please Follow Up With: Jonna Martin MD When: As scheduled, continue dialysis M,W.F Disposition: Senior Care facility Minutes spent on discharge:: 35 Patient Condition:: Stable Medical Necessity - Tobacco Use Smoking Status: Former smoker Meaningful Use Info Meaningful Use Diagnoses (Choose all that apply): None applicable <Manuel Aquino E - Last Filed: 12/05/18 13:47> Discharge Date and Diagnosis - Secondary Discharge Diagnosis Chronic Problems (Last Updated 06/16/18 @ 10:57 by Arline Galindo) Hx of atrioventricular node ablation (Chronic 12/19/14) AV node RFA X2 noriega per report;Subsequent implant of single chamber ICD per Dr. 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 Cheung @ [facility]. Also subsequent PCI's :PCI X 6 to RCA in 2013; PCI X 3 in 2014: reports not available but referenced in Dr. Saunders's office visit dated 05/24/2018 History of ventricular septal myectomy (Chronic 07/18/04) Septal Myectomy and CABG X 2 with Left internal thoracic artery to the LAD, and reversed SVG of the PDA per Dr. Cheung @ [facility] S/P CABG x 2 (Chronic 07/18/04) Septal Myectomy and CABG X 2 with Left internal thoracic artery to the LAD, and reversed SVG of the PDA per Dr. Cheung @ [facility] Hypertension (Chronic) Hyperlipidemia (Chronic) Type 2 diabetes mellitus (Chronic) COPD (chronic obstructive pulmonary disease) (Chronic) Chronic hypoxemic respiratory failure (Chronic) Atrial fibrillation (Chronic) 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 12/11/16) Initial single chamber ICD implant was 12/19/[address] Loya @ [facility] [place]. S/P EP/RFA; subsequent upgrade to combination pacer/ICD implant 12/11/16 [employer] Ellipse VR [id number] End stage renal disease (Chronic) Diabetic neuropathy (Chronic) Peripheral vascular disease (Chronic) Venous insufficiency of both lower extremities (Chronic) Congestive heart failure (Chronic) History of PTCA (Chronic) PCI X 6 to RCA in 2013; PCI X 3 in 2014: reports not available but referenced in Dr. Saunders's office visit dated 05/24/2018 Hospital Course and Treatment Consultations 11/28/18 15:07 Consult: Onc/Wound/filler picker Routine Comment: Summary of Care Provided: Hospitalist note: Discharge summary above reviewed and I agree and concur with the above discharge and treatment plan. Patient presented to the emergency room because of fall, found to have findings consistent with shock which is initially attributed to hypovolemic shock versus septic shock. Initially, patient was admitted to intensive care unit and started on IV vasopressors due to hypotension. She was started empirically on IV antibiotics as well because of chronic bilateral leg wounds. There was no obvious source of infection identified. Her blood culture showed no growth in 5 days and also repeat blood culture showed no growth in 5 days as well. Urine culture showed no growth. Stool for C. difficile was negative. Stool for enteric pathogens was negative as well. Respiratory panel for viruses were negative. With IV fluid therapy and IV antibiotics, and blood pressure stabilized and her lactic acid came down to normal. On admission, lactic acid was 4.8 and with IV fluid therapy, it came down to 1.2. A chest x- ray showed no acute findings, no infiltrate or consolidation. CT scan abdomen showed nonspecific inflammatory changes of the bowel, no definitive diagnosis provided. Her studies came back negative as mentioned above. After treatment, patient was able to maintain her blood pressure and she was transferred to PCU. She was continued on hemodialysis for ESRD and nephrology was consulted. He had an episode of vaginal bleeding which is attributed to postmenopausal bleeding. Hemoglobin and hematocrit remained stable. Transvaginal ultrasound performed and was unremarkable. Patient remained stable on 2 L of oxygen which is her baseline at home. Patient discharged to halfway facility in a stable medical condition, dose of Eliquis adjusted down to 2.5 mg p.o. twice daily, lisinopril discontinued, metoprolol decreased down to 12.5 mg p.o. daily, continued on her other chronic home medications without any changes, recommended follow-up with PCP in 1 week, follow-up with nephrology according to Dr. Martin. - Physical Exam General: Alert, Oriented x3, Cooperative, No apparent distress. HEENT: Atraumatic, PERRLA, EOMI. Neck: Supple, No JVD, Negative Carotid Bruits, Trachea Midline, Thyroid Normal. Lungs: Diminished breath sounds bilateral, otherwise clear, No rhonchi, No wheeze, No rales. Cardiovascular: Regular rate, Regular Rhythm, Normal S1, Normal S2, PMI Normal. Abdomen: Bowel Sounds Present, Soft, Non Tender, Non-Distended, No Hepato- splenomegaly. Extremities: No clubbing, No cyanosis, No edema Skin: No rashes, No breakdown Neurological: Neuro grossly intact Vital Signs are stable. This note was generated with [employer] software. It may contain incorrect words, spelling, and punctuation that were not noted in checking the note before signing. - Physical Exam Vital Signs Temp Pulse Resp BP Pulse Ox 98.4 F 67 14 107/51 L 100 12/05/18 09:33 12/05/18 09:33 12/05/18 09:33 12/05/18 09:33 12/05/18 09:33 Oxygen Flow Rate (L/min) 2 Oxygen Delivery Method Nasal Cannula Weight: 206 lb 2.115 oz Body Mass Index (BMI) 30.4 Finger Stick Blood Glucose 145 Intake and Output for Last 24 Hours 12/03/18 12/04/18 12/05/18 23:59 23:59 23:59 Intake Total 730 / 730 580 / 580 Output Total 100 / 100 0 / 0 Balance 630 / 630 580 / 580 Microbiology Past 72 Hours 11/29/18 06:45 Blood Culture - Final Blood Culture (Wb)#3 - Line Draw No growth in 5 days. 11/28/18 14:04 Blood Culture - Final Blood Culture (Wb) - No Site/Description Given No growth in 5 days. 11/28/18 10:48 Blood Culture - Final Blood Culture (Wb) - Left Hand No growth in 5 days. POC Glucose 12/05/18 12/04/18 12/04/18 06:31 23:24 16:26 POC Glucose 62 L 81 81 Disposition: Senior Care facility Minutes spent on discharge:: 35 Patient Condition:: Stable Meaningful Use Info Meaningful Use Diagnoses (Choose all that apply): None applicable Code Visit Inpatient E&M: 01302 Disch Hosp
--- NOTE | 2018-12-05 10:59 | PHA.DC.MR ---
Pharmacy Service has performed discharge medication reconciliation for this patient. The patient's discharge medication list was reviewed for discrepancies and discrepancies were resolved. Home Medications Metoclopramide [Reglan] 10 mg PO BID 11/04/18 Pregabalin [Lyrica] 25 mg PO DAILY 11/04/18 Rosuvastatin Calcium [Crestor] 20 mg PO QHS 11/12/18 Amiodarone HCl 200 mg PO DAILY 11/28/18 Diphenhydramine HCl 25 mg PO Q6H PRN PRN 11/28/18 Docusate Sodium [Colace] 100 mg PO BID PRN 11/28/18 Loperamide HCl [Loperamide] 2 mg PO Q6H PRN PRN 11/28/18 Magnesium Hydroxide [Milk Of Magnesia] 30 ml PO DAILY PRN PRN 11/28/18 Miconazole 100 gm TP BID 11/28/18 Nut.tx.impaired Renal Fxn,Soy [Novasource Renal 2 Dre] 240 ml PO BID 11/28/18 Pantoprazole Sodium [Protonix] 40 mg PO DAILY 11/28/18 Pregabalin [Lyrica] 25 mg PO MOWEFR 11/28/18 Apixaban [Eliquis] 2.5 mg PO BID #0 12/05/18 Insulin Glargine [Lantus SoloStar Pen] 10 units SC 1100 pen 12/05/18 Menthol/Lanolin/Calamine/Znox [Calmoseptine Ointment] 1 applic TOPICAL TID tube 12/05/18 Metoprolol Succinate 12.5 mg PO DAILY #0 12/05/18 Sevelamer Carbonate [Renvela] 800 mg PO TIDCM #10 tablet 12/05/18
--- NOTE | 2018-12-05 11:34 | CASEMGMT ---
DWAYNE faxed orders to [facility]. SW wrote on fax face sheet she will not be returning until after dinner as she will be getting dialysis first. DWAYNE also called and spoke with RN at [facility] letting her know as well. Plan: d/c back to [facility] under skilled level of care. Transport will be set up when patient is ready to go. Rebecca MARINELLI MSW
[2018-12-05] MEDS: Pantoprazole Sodium 40 MG Tablet PO (12:49)
[2018-12-05] MEDS: Metoclopramide 10 MG Tablet PO ×2 (12:49→21:20)
[2018-12-05] MEDS: Menthol/Lanolin/Calamine/Znox 113 GM Tube 1 APPLIC TOPICAL ×2 (13:45→21:14)
--- NOTE | 2018-12-05 14:16 | NURSING ---
dr rutledge in to see attends and bleeding.
[2018-12-05 14:52] LABS: Hematocrit 28.9 % (37-47); Hemoglobin 8.9 g/dl (12.0-15.0)
--- NOTE | 2018-12-05 15:04 | CASEMGMT ---
Patient's discharge was canceled. SW called [facility] and let them know patient will not be returning today. Rebecca MARINELLI MSW
--- NOTE | 2018-12-05 15:05 | PCM.CONS.GEN ---
Reason for Consult Date of Consultation: 12/05/18 History of Present Illness: The patient is a 78 year old F originally admitted for septic shock with unknown source. Patient's white blood cell counts and pressures did improve. However yesterday patient did have clot in her depends and is thought that may be a vaginal source thus vaginal ultrasound was done which was negative. Patient states she has had an hysterectomy previously. When patient was admitted on 09/[address] abdomen pelvis which did show some thickening of the descending and sigmoid colon. Patient states her last colonoscopy was in 2012 in [place] did have some polyps. She also states she has a history of colitis but she is unable to tell me much more about that and whether that is the reason why she got the colonoscopy in 2013 or not. She denies having any blood per rectum prior to this episodes in the hospital. Patient did again have some more maroon blood in her depends today and on digital rectal exam. Patient is somewhat of a poor historian she denies any abdominal pain previous to falling or nausea and vomiting and states she fell because she lost her balance and just fell straight back on her bottom and she did hit her head but did not lose consciousness. She does complain of abdominal pain in the right upper quadrant but cannot tell you what makes it better or worse or when or why it started. Patient has been eating a regular diet the last couple days and was getting ready for discharge prior to the maroon blood per rectum. Past Medical History Past Medical History (Chronic Problems): Chronic Problems (Last Updated 06/16/18 @ 10:57 by Arline Galindo) Hx of atrioventricular node ablation (Chronic 12/19/14) AV node RFA X2 noriega per report;Subsequent implant of single chamber ICD per Dr. Loya @ [facility], [place] longterm 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 (Chronic) Atherosclerotic heart disease of [place] coronary artery without angina pectoris (Chronic) Septal Myectomy and CABG X 2 with Left internal thoracic artery to the LAD, and reversed SVG of the PDA per Dr. Cheung @ [facility]. Also subsequent PCI's :PCI X 6 to RCA in 2013; PCI X 3 in 2014: reports not available but referenced in Dr. Saunders's office visit dated 05/24/2018 History of ventricular septal myectomy (Chronic 07/18/04) Septal Myectomy and CABG X 2 with Left internal thoracic artery to the LAD, and reversed SVG of the PDA per Dr. Cheung @ [facility] S/P CABG x 2 (Chronic 07/18/04) Septal Myectomy and CABG X 2 with Left internal thoracic artery to the LAD, and reversed SVG of the PDA per Dr. Cheung @ [facility] Hypertension (Chronic) Hyperlipidemia (Chronic) Type 2 diabetes mellitus (Chronic) COPD (chronic obstructive pulmonary disease) (Chronic) Chronic hypoxemic respiratory failure (Chronic) Atrial fibrillation (Chronic) 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 12/11/16) Initial single chamber ICD implant was 12/19/[address] Loya @ [facility] [place]. S/P EP/RFA; subsequent upgrade to combination pacer/ICD implant 12/11/16 [facility] Ellipse VR [id number] End stage renal disease (Chronic) Diabetic neuropathy (Chronic) Peripheral vascular disease (Chronic) Venous insufficiency of both lower extremities (Chronic) Congestive heart failure (Chronic) History of PTCA (Chronic) PCI X 6 to RCA in 2013; PCI X 3 in 2014: reports not available but referenced in Dr. 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 Cheung @ [facility]. Also subsequent PCI's :PCI X 6 to RCA in 2013; PCI X 3 in 2014: reports not available but referenced in Dr. Saunders's office visit dated 05/24/2018 Hypertension (Chronic) I10 Hyperlipidemia (Chronic) E78.5 Type 2 diabetes mellitus (Chronic) E11.9 COPD (chronic obstructive pulmonary disease) (Chronic) J44.9 Chronic hypoxemic respiratory failure (Chronic) J96.11 Atrial fibrillation (Chronic) I48.91 End stage renal disease (Chronic) N18.6 Diabetic neuropathy (Chronic) E11.40 Peripheral vascular disease (Chronic) I73.9 Venous insufficiency of both lower extremities (Chronic) I87.2 Congestive heart failure (Chronic) I50.9 Allergies latex Allergy (Verified 11/12/18 16:07) Anaphylaxis meperidine [From Demerol] Allergy (Verified 11/12/18 16:07) Hives Penicillins Allergy (Verified 11/12/18 16:07) Hives Tetracyclines Allergy (Verified 11/12/18 16:07) Hives aspirin Adverse Reaction (Verified 11/12/18 16:07) Unknown atorvastatin Adverse Reaction (Verified 11/12/18 16:07) Unknown codeine Adverse Reaction (Verified 11/12/18 16:07) Unknown hydromorphone [From Dilaudid] Adverse Reaction (Verified 11/12/18 16:07) Unknown pentazocine Adverse Reaction (Verified 11/12/18 16:07) Unknown pioglitazone Adverse Reaction (Verified 11/12/18 16:07) Unknown propoxyphene Adverse Reaction (Verified 11/12/18 16:07) Unknown sulfamethoxazole [From Bactrim] Adverse Reaction (Verified 11/12/18 16:07) Unknown trimethoprim [From Bactrim] Adverse Reaction (Verified 11/12/18 16:07) Unknown chloroprep Allergy (Uncoded 11/12/18 16:07) Unknown Home Medications: Ambulatory Orders Medication Instructions Recorded Metoclopramide [Reglan] 10 mg PO BID 11/04/18 Pregabalin [Lyrica] 25 mg PO DAILY 11/04/18 Rosuvastatin Calcium [Crestor] 20 mg PO QHS 11/12/18 Amiodarone HCl 200 mg PO DAILY 11/28/18 Diphenhydramine HCl 25 mg PO Q6H PRN PRN 11/28/18 Docusate Sodium [Colace] 100 mg PO BID PRN 11/28/18 Loperamide HCl [Loperamide] 2 mg PO Q6H PRN PRN 11/28/18 Magnesium Hydroxide [Milk Of 30 ml PO DAILY PRN PRN 11/28/18 Magnesia] Miconazole 100 gm TP BID 11/28/18 Nut.tx.impaired Renal Fxn,Soy 240 ml PO BID 11/28/18 [Novasource Renal 2 Dre] Pantoprazole Sodium [Protonix] 40 mg PO DAILY 11/28/18 Pregabalin [Lyrica] 25 mg PO MOWEFR 11/28/18 Apixaban [Eliquis] 2.5 mg PO BID #0 02/18/19 Insulin Glargine [Lantus SoloStar 10 units SC 1100 pen 12/05/18 Pen] Menthol/Lanolin/Calamine/Znox 1 applic TOPICAL TID tube 12/05/18 [Calmoseptine Ointment] Metoprolol Succinate 12.5 mg PO DAILY #0 12/05/18 Sevelamer Carbonate [Renvela] 800 mg PO TIDCM #10 tablet 12/05/18 Surgical History: Surgical History (Last Updated 06/16/18 @ 10:57 by Arline Galindo) Hx of atrioventricular node ablation (Chronic) Onset Date: 12/19/14 Z98.890 AV node RFA X2 noriega per report;Subsequent implant of single chamber ICD per Dr. Loya @ [facility] [place] History of ventricular septal myectomy (Chronic) Onset Date: 07/18/04 Z98.890 Septal Myectomy and CABG X 2 with Left internal thoracic artery to the LAD, and reversed SVG of the PDA per Dr. Cheung @ [facility] S/P CABG x 2 (Chronic) Onset Date: 07/18/04 Z95.1 Septal Myectomy and CABG X 2 with Left internal thoracic artery to the LAD, and reversed SVG of the PDA per Dr. Cheung @ [facility] 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) Onset Date: 12/11/16 Z95.810 Initial single chamber ICD implant was 12/19/[address] Loya @ [facility] [place]. S/P EP/RFA; subsequent upgrade to combination pacer/ICD implant 12/11/16 [facility] Rob Ellipse VR [id number] Surgical History: angioplasty, cholecystectomy, coronary bypass surgery, hysterectomy, pacemaker implantation, - Lives: [facility] Smoking Status: Former smoker Alcohol: None Drugs: None - *Family History Maternal Family History: Family History (Last Updated 06/16/18 @ 10:47 by Arline Galindo) Unknown No problems noted. History Items: Hypertension Paternal Family History: Family History (Last Updated 06/16/18 @ 10:47 by Arline Galindo) Unknown No problems noted. History Items: Heart Disease Review of Systems Constitutional: Denies: Chills, Fever Eyes: Denies: Blurred vision HEENT: Denies: Difficulty Swallowing Cardiovascular: Denies: Chest Pain Respiratory: Reports: Shortness of breath at rest Gastrointestinal: Reports: Abdominal Pain, Hematochezia. Denies: Nausea, Vomiting Genitourinary: Reports: Dysuria Musculoskeletal: Denies: Back Pain Skin: Denies: Rash Psychiatric: Denies: Anxiety Hematologic/ Lymphatic: Reports: Easy Bruising, Easy Bleeding - Physical Exam General: Alert, Cooperative, No apparent distress HEENT: Atraumatic, - - left IJ TLC in place, right tunneled right IJ dialysis catheter in place Lungs: Normal air movement Cardiovascular: Regular rate Abdomen: Soft, Non-Distended, Tender - RUQ/LUQ, no PS Extremities: No clubbing, No cyanosis Skin: - - PVD of bilateral LE-shiny, purplish hue Vital Signs Temp Pulse Resp BP Pulse Ox 97.9 F 69 18 128/56 H 100 12/05/18 13:52 12/05/18 13:52 12/05/18 13:52 12/05/18 13:52 12/05/18 13:52 Oxygen Flow Rate (L/min) 2 Oxygen Delivery Method Nasal Cannula Weight: 206 lb 2.115 oz Body Mass Index (BMI) 30.4 Finger Stick Blood Glucose 145 Intake and Output for Last 24 Hours 12/03/18 12/04/18 12/05/18 23:59 23:59 23:59 Intake Total 730 / 730 580 / 580 Output Total 100 / 100 0 / 0 Balance 630 / 630 580 / 580 Microbiology Past 72 Hours 11/29/18 06:45 Blood Culture - Final Blood Culture (Wb)#3 - Line Draw No growth in 5 days. 11/28/18 14:04 Blood Culture - Final Blood Culture (Wb) - No Site/Description Given No growth in 5 days. 11/28/18 10:48 Blood Culture - Final Blood Culture (Wb) - Left Hand No growth in 5 days. Laboratory Tests Past 24 Hrs 12/05/18 14:20 Hgb 8.9 L Hct 28.9 L POC Glucose 12/05/18 12/04/18 12/04/18 06:31 23:24 16:26 POC Glucose 62 L 81 81 Assessment/Plan All Active Problems (Last Reviewed 06/14/18 @ 10:42 by Arline Galindo) Septic shock (Acute) 78 y/o F with GI bleed, thickening of sigmoid/descending colon on CT 11/29/18, ESRD, admitted for septic shock-unknown source. 1. Clears 2. H/H q6, eliquis held starting 12/04/18, current hemoglobin is 8.9, vital signs stable, digital rectal exam did show maroon blood, will get records from patient's last colonoscopy in 2012 from [place] she does states she may have had colitis before but and unable to tell me anymore about that, currently we will treat conservatively but if her hemoglobin continues to drop we will plan to do a colonoscopy while she is in the hospital versus as an outpatient. Patient is agreeable to getting an endoscopy if it is needed. 3. Thickening of descending/sigmoid colon?start Cipro Flagyl 4. Patient is on Protonix IV twice daily 5. End-stage renal disease?patient is getting dialysis today. Anju Anders M.D. Pager: [phone] [facility] [address] [place] [address], Outpatient [place], [address] [place] [id number] Office: [phone] Code Visit Inpatient E&M: 15000 Init Hosp L2
--- NOTE | 2018-12-05 15:11 | PN_ITS ---
<Mariluz Gaffney - Last Filed: 12/05/18 15:15> Subjective: Patient seen and examined. Plan was for discharge today however patient noted to have large episode of blood per rectum. Discharge subsequently canceled and surgery consult placed. - Physical Exam General: Alert, Oriented x3, Cooperative HEENT: Atraumatic, PERRLA, EOMI, Normocephalic Neck: Supple, No JVD, Negative Carotid Bruits Lungs: Clear to auscultation, Diminished Cardiovascular: Regular rate, Regular Rhythm, Normal S1, Normal S2, No murmurs Abdomen: Bowel Sounds Present, Soft, Non Tender, Non-Distended, Obese Extremities: No clubbing, No cyanosis, Capillary Refill Less than 3 Seconds, Edema - Nonpitting edema bilateral lower extremities and right upper extremity. Skin: No rashes, No breakdown Musculoskeletal: No Tenderness to Palpation of Joints or Extremities Neurological: Cranial nerves II-XII grossly intact, Neuro grossly intact Psych/Mental Status: Normal Affect, Appropriate Vital Signs Temp Pulse Resp BP Pulse Ox 97.9 F 69 18 128/56 H 100 12/05/18 13:52 12/05/18 13:52 12/05/18 13:52 12/05/18 13:52 12/05/18 13:52 Oxygen Flow Rate (L/min) 2 Oxygen Delivery Method Nasal Cannula Weight: 206 lb 2.115 oz Body Mass Index (BMI) 30.4 Finger Stick Blood Glucose 145 Intake and Output for Last 24 Hours 12/03/18 12/04/18 12/05/18 23:59 23:59 23:59 Intake Total 730 / 730 580 / 580 Output Total 100 / 100 0 / 0 Balance 630 / 630 580 / 580 Microbiology Past 72 Hours 11/29/18 06:45 Blood Culture - Final Blood Culture (Wb)#3 - Line Draw No growth in 5 days. 11/28/18 14:04 Blood Culture - Final Blood Culture (Wb) - No Site/Description Given No growth in 5 days. 11/28/18 10:48 Blood Culture - Final Blood Culture (Wb) - Left Hand No growth in 5 days. Laboratory Tests Past 24 Hrs 12/05/18 14:20 Hgb 8.9 L Hct 28.9 L POC Glucose 12/05/18 12/04/18 12/04/18 06:31 23:24 16:26 POC Glucose 62 L 81 81 Medical Necessity - Tobacco Use Smoking Status: Former smoker Assessment/Plan All Active Problems (Last Reviewed 06/14/18 @ 10:42 by Arline Galindo) Septic shock (Acute) The patient is a 78 year old F admitted 11/28/18 due to fall. 1. Septic shock, unclear source-patient initially required ICU for vasopressor therapy due to hypotension. Patient was treated with broad-spectrum antibiotics and improved clinically. Blood cultures negative. Chest x-ray without acute process. CT of abdomen and pelvis showed nonspecific acute inflammatory bowel disease involving the descending colon with trace of free fluid in the pericolic gutter and pelvis. Diverticular changes within the descending and sigmoid colon. Patient improved and further antibiotics discontinued. Given acute GI bleed, question if initial source was GI related? Restarted on IV Cipro and IV Flagyl. 2. ESRD on hemodialysis-follows with nephrology, hemodialysis Wednesday, Wednesday, Wednesday. Patient to undergo dialysis this afternoon. 3. Acute GI bleed-initially thought to be postmenopausal vaginal bleeding, resolved-transvaginal ultrasound unremarkable. Anticoagulation on hold. Rectal exam with copious amount of blood, maroon in color with clots. Serial H&H. Consult placed to Dr. Anders, general surgery. Recommending IV Protonix and IV Flagyl and IV Cipro given CT abdomen as noted above. Attempt to obtain records from [place] with prior scope in 2012. 4. Elevated troponin, secondary to demand ischemia as result of #1 5. Chronic hypoxic respiratory failure-on baseline home O2. Continue supplement oxygen to maintain O2 at or above 90%. 6. Hypertension-home lisinopril regimen discontinued. Metoprolol decreased to 12.5 mg p.o. daily. 7. Hyperlipidemia- continue statin. 8. Ischemic cardiomyopathy status post AICD placement 9. Paroxysmal atrial fibrillation-on amiodarone, Eliquis. Metoprolol decreased to 12.5 mg p.o. daily. Eliquis on hold given acute GI bleed. 10. Type 2 diabetes mellitus-home long-acting regimen decreased to 10 units daily due to hypoglycemia. Accu-Cheks ACHS. 11. Obesity-encouraged diet lifestyle modifications. DVT prophylaxis-SCDs This patient was seen by JUNAID Cason under the supervision of Dr. Aquino. <Manuel Aquino E - Last Filed: 12/05/18 15:35> - Physical Exam Vital Signs Temp Pulse Resp BP Pulse Ox 97.9 F 69 18 128/56 H 100 12/05/18 13:52 12/05/18 13:52 12/05/18 13:52 12/05/18 13:52 12/05/18 13:52 Oxygen Flow Rate (L/min) 2 Oxygen Delivery Method Nasal Cannula Weight: 206 lb 2.115 oz Body Mass Index (BMI) 30.4 Finger Stick Blood Glucose 145 Intake and Output for Last 24 Hours 12/03/18 12/04/18 12/05/18 23:59 23:59 23:59 Intake Total 730 / 730 580 / 580 Output Total 100 / 100 0 / 0 Balance 630 / 630 580 / 580 Microbiology Past 72 Hours 11/29/18 06:45 Blood Culture - Final Blood Culture (Wb)#3 - Line Draw No growth in 5 days. 11/28/18 14:04 Blood Culture - Final Blood Culture (Wb) - No Site/Description Given No growth in 5 days. 11/28/18 10:48 Blood Culture - Final Blood Culture (Wb) - Left Hand No growth in 5 days. Laboratory Tests Past 24 Hrs 12/05/18 14:20 Hgb 8.9 L Hct 28.9 L POC Glucose 12/05/18 12/04/18 12/04/18 06:31 23:24 16:26 POC Glucose 62 L 81 81 Assessment/Plan Hospitalist note: I am seeing this patient in conjunction with Mariluz Gaffney. I independently seen and examined the patient. Progress note above and, laboratory data and I agree with above treatment and workup plan. Discharge was canceled because patient had bleeding per rectum with large amount of dark red colored blood. She denies any abdominal pain, nausea vomiting. She denies dizziness or lightheadedness. Her vital signs were stable after she had the bleeding. Discharge canceled and stat H&H ordered. - Physical Exam General: Alert, Oriented x3, Cooperative, No apparent distress. HEENT: Atraumatic, PERRLA, EOMI. Neck: Supple, No JVD, Negative Carotid Bruits, Trachea Midline, Thyroid Normal. Lungs: Diminished breath sounds bilateral, otherwise clear, No rhonchi, No wheeze, No rales. Cardiovascular: Regular rate, Regular Rhythm, Normal S1, Normal S2, PMI Normal. Abdomen: Bowel Sounds Present, Soft, Non Tender, Non-Distended, No Hepato- splenomegaly. Extremities: No clubbing, No cyanosis, No edema Skin: No rashes, No breakdown Neurological: Neuro grossly intact Vital Signs are stable. Assessment and plan: #1 acute GI bleed: After discharge instructions done, patient had rectal bleeding with large amount of dark red colored stool. Initially, there was a concern that she may have postmenopausal vaginal bleeding. Transvaginal ultrasound was unremarkable. Eliquis was held. Patient had CT scan abdomen and pelvis on admission that showed nonspecific inflammatory changes of the colon. Patient was on antibiotics that was discontinued. H&H after she had a bleed was stable, hemoglobin was 8.9 g etc., actually a little higher than this morning. Her vital signs are stable. General surgery consulted, recommended to start empiric IV Flagyl and ciprofloxacin for possible colitis. Plan: H&H every 6 hours, repeat CBC tomorrow morning, transfuse if hemoglobin less than 8 g/dL, hold Eliquis. #2 septic versus hypovolemic shock: Without evidence of acute infection, possible colitis is in the differential diagnosis and could be the reason for her shock. Patient has been off IV vasopressors. Patient was on antibiotics on admission, discontinued. Her blood pressure improved, has been afebrile. Cultures are negative. At this time, blood pressure is maintained without vasopressors or IV fluids. Plan as above. #3 indeterminant troponin: Patient denies any chest pain, this has been chronic. Troponin has been flat, could be due to demand ischemia. #4 other chronic medical problems: Stable, continue current medications as above. This note was generated with [employer] dictation software. It may contain incorrect words, spelling, and punctuation that were not noted in checking the note before signing. Code Visit Inpatient E&M: 07454 Subs Hosp L2
--- NOTE | 2018-12-05 15:14 | CON.PCM_ITS ---
Reason for Consult Date of Consultation: 12/05/18 History of Present Illness: The patient is a 78 year old F originally admitted for septic shock with unknown source. Patient's white blood cell counts and pressures did improve. However yesterday patient did have clot in her depends and is thought that may be a vaginal source thus vaginal ultrasound was done which was negative. Patient states she has had an hysterectomy previously. When patient was admitted on 09/[address] abdomen pelvis which did show some thickening of the descending and sigmoid colon. Patient states her last colonoscopy was in 2012 in [place] did have some polyps. She also states she has a history of colitis but she is unable to tell me much more about that and whether that is the reason why she got the colonoscopy in 2013 or not. She denies having any blood per rectum prior to this episodes in the hospital. Patient did again have some more maroon blood in her depends today and on digital rectal exam. Patient is somewhat of a poor historian she denies any abdominal pain previous to falling or nausea and vomiting and states she fell because she lost her balance and just fell straight back on her bottom and she did hit her head but did not lose consciousness. She does complain of abdominal pain in the right upper quadrant but cannot tell you what makes it better or worse or when or why it started. Patient has been eating a regular diet the last couple days and was getting ready for discharge prior to the maroon blood per rectum. Past Medical History Past Medical History (Chronic Problems): Chronic Problems (Last Updated 06/16/18 @ 10:57 by Arline Galindo) Hx of atrioventricular node ablation (Chronic 12/19/14) AV node RFA X2 noriega per report;Subsequent implant of single chamber ICD per Dr. Loya @ [facility], [place] [facility] 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 (Chronic) Atherosclerotic heart disease of [place] coronary artery without angina pectoris (Chronic) Septal Myectomy and CABG X 2 with Left internal thoracic artery to the LAD, and reversed SVG of the PDA per Dr. Cheung @ [facility]. Also subsequent PCI's :PCI X 6 to RCA in 2013; PCI X 3 in 2014: reports not available but referenced in Dr. Saunders's office visit dated 05/24/2018 History of ventricular septal myectomy (Chronic 07/18/04) Septal Myectomy and CABG X 2 with Left internal thoracic artery to the LAD, and reversed SVG of the PDA per Dr. Cheung @ [facility] S/P CABG x 2 (Chronic 07/18/04) Septal Myectomy and CABG X 2 with Left internal thoracic artery to the LAD, and reversed SVG of the PDA per Dr. Cheung @ [facility] Hypertension (Chronic) Hyperlipidemia (Chronic) Type 2 diabetes mellitus (Chronic) COPD (chronic obstructive pulmonary disease) (Chronic) Chronic hypoxemic respiratory failure (Chronic) Atrial fibrillation (Chronic) 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 12/11/16) Initial single chamber ICD implant was 12/19/[address] Loya @ [facility] [place]. S/P EP/RFA; subsequent upgrade to combination pacer/ICD implant 12/11/16 [facility] Rob Ellipse VR [id number] End stage renal disease (Chronic) Diabetic neuropathy (Chronic) Peripheral vascular disease (Chronic) Venous insufficiency of both lower extremities (Chronic) Congestive heart failure (Chronic) History of PTCA (Chronic) PCI X 6 to RCA in 2013; PCI X 3 in 2014: reports not available but referenced in Dr. 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 Cheung @ [facility]. Also subsequent PCI's :PCI X 6 to RCA in 2013; PCI X 3 in 2014: reports not available but referenced in Dr. Saunders's office visit dated 05/24/2018 Hypertension (Chronic) I10 Hyperlipidemia (Chronic) E78.5 Type 2 diabetes mellitus (Chronic) E11.9 COPD (chronic obstructive pulmonary disease) (Chronic) J44.9 Chronic hypoxemic respiratory failure (Chronic) J96.11 Atrial fibrillation (Chronic) I48.91 End stage renal disease (Chronic) N18.6 Diabetic neuropathy (Chronic) E11.40 Peripheral vascular disease (Chronic) I73.9 Venous insufficiency of both lower extremities (Chronic) I87.2 Congestive heart failure (Chronic) I50.9 Allergies latex Allergy (Verified 11/12/18 16:07) Anaphylaxis meperidine [From Demerol] Allergy (Verified 11/12/18 16:07) Hives Penicillins Allergy (Verified 11/12/18 16:07) Hives Tetracyclines Allergy (Verified 11/12/18 16:07) Hives aspirin Adverse Reaction (Verified 11/12/18 16:07) Unknown atorvastatin Adverse Reaction (Verified 11/12/18 16:07) Unknown codeine Adverse Reaction (Verified 11/12/18 16:07) Unknown hydromorphone [From Dilaudid] Adverse Reaction (Verified 11/12/18 16:07) Unknown pentazocine Adverse Reaction (Verified 11/12/18 16:07) Unknown pioglitazone Adverse Reaction (Verified 11/12/18 16:07) Unknown propoxyphene Adverse Reaction (Verified 11/12/18 16:07) Unknown sulfamethoxazole [From Bactrim] Adverse Reaction (Verified 11/12/18 16:07) Unknown trimethoprim [From Bactrim] Adverse Reaction (Verified 11/12/18 16:07) Unknown chloroprep Allergy (Uncoded 11/12/18 16:07) Unknown Home Medications: Ambulatory Orders Medication Instructions Recorded Metoclopramide [Reglan] 10 mg PO BID 11/04/18 Pregabalin [Lyrica] 25 mg PO DAILY 11/04/18 Rosuvastatin Calcium [Crestor] 20 mg PO QHS 11/12/18 Amiodarone HCl 200 mg PO DAILY 11/28/18 Diphenhydramine HCl 25 mg PO Q6H PRN PRN 11/28/18 Docusate Sodium [Colace] 100 mg PO BID PRN 11/28/18 Loperamide HCl [Loperamide] 2 mg PO Q6H PRN PRN 11/28/18 Magnesium Hydroxide [Milk Of 30 ml PO DAILY PRN PRN 11/28/18 Magnesia] Miconazole 100 gm TP BID 11/28/18 Nut.tx.impaired Renal Fxn,Soy 240 ml PO BID 11/28/18 [Novasource Renal 2 Dre] Pantoprazole Sodium [Protonix] 40 mg PO DAILY 11/28/18 Pregabalin [Lyrica] 25 mg PO MOWEFR 11/28/18 Apixaban [Eliquis] 2.5 mg PO BID #0 02/18/19 Insulin Glargine [Lantus SoloStar 10 units SC 1100 pen 12/05/18 Pen] Menthol/Lanolin/Calamine/Znox 1 applic TOPICAL TID tube 12/05/18 [Calmoseptine Ointment] Metoprolol Succinate 12.5 mg PO DAILY #0 12/05/18 Sevelamer Carbonate [Renvela] 800 mg PO TIDCM #10 tablet 12/05/18 Surgical History: Surgical History (Last Updated 06/16/18 @ 10:57 by Arline Galindo) Hx of atrioventricular node ablation (Chronic) Onset Date: 12/19/14 Z98.890 AV node RFA X2 noriega per report;Subsequent implant of single chamber ICD per Dr. Loya @ [facility] [place] History of ventricular septal myectomy (Chronic) Onset Date: 07/18/04 Z98.890 Septal Myectomy and CABG X 2 with Left internal thoracic artery to the LAD, and reversed SVG of the PDA per Dr. Cheung @ [facility] S/P CABG x 2 (Chronic) Onset Date: 07/18/04 Z95.1 Septal Myectomy and CABG X 2 with Left internal thoracic artery to the LAD, and reversed SVG of the PDA per Dr. Cheung @ [facility] 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) Onset Date: 12/11/16 Z95.810 Initial single chamber ICD implant was 12/19/[address] Loya @ [facility] [place]. S/P EP/RFA; subsequent upgrade to combination pacer/ICD implant 12/11/16 [facility] Rob Ellipse VR [id number] Surgical History: angioplasty, cholecystectomy, coronary bypass surgery, hysterectomy, pacemaker implantation, - Lives: [facility] Smoking Status: Former smoker Alcohol: None Drugs: None - *Family History Maternal Family History: Family History (Last Updated 06/16/18 @ 10:47 by Arline Galindo) Unknown No problems noted. History Items: Hypertension Paternal Family History: Family History (Last Updated 06/16/18 @ 10:47 by Arline Galindo) Unknown No problems noted. History Items: Heart Disease Review of Systems Constitutional: Denies: Chills, Fever Eyes: Denies: Blurred vision HEENT: Denies: Difficulty Swallowing Cardiovascular: Denies: Chest Pain Respiratory: Reports: Shortness of breath at rest Gastrointestinal: Reports: Abdominal Pain, Hematochezia. Denies: Nausea, Vomiting Genitourinary: Reports: Dysuria Musculoskeletal: Denies: Back Pain Skin: Denies: Rash Psychiatric: Denies: Anxiety Hematologic/ Lymphatic: Reports: Easy Bruising, Easy Bleeding - Physical Exam General: Alert, Cooperative, No apparent distress HEENT: Atraumatic, - - left IJ TLC in place, right tunneled right IJ dialysis catheter in place Lungs: Normal air movement Cardiovascular: Regular rate Abdomen: Soft, Non-Distended, Tender - RUQ/LUQ, no PS Extremities: No clubbing, No cyanosis Skin: - - PVD of bilateral LE-shiny, purplish hue Vital Signs Temp Pulse Resp BP Pulse Ox 97.9 F 69 18 128/56 H 100 12/05/18 13:52 12/05/18 13:52 12/05/18 13:52 12/05/18 13:52 12/05/18 13:52 Oxygen Flow Rate (L/min) 2 Oxygen Delivery Method Nasal Cannula Weight: 206 lb 2.115 oz Body Mass Index (BMI) 30.4 Finger Stick Blood Glucose 145 Intake and Output for Last 24 Hours 12/03/18 12/04/18 12/05/18 23:59 23:59 23:59 Intake Total 730 / 730 580 / 580 Output Total 100 / 100 0 / 0 Balance 630 / 630 580 / 580 Microbiology Past 72 Hours 11/29/18 06:45 Blood Culture - Final Blood Culture (Wb)#3 - Line Draw No growth in 5 days. 11/28/18 14:04 Blood Culture - Final Blood Culture (Wb) - No Site/Description Given No growth in 5 days. 11/28/18 10:48 Blood Culture - Final Blood Culture (Wb) - Left Hand No growth in 5 days. Laboratory Tests Past 24 Hrs 12/05/18 14:20 Hgb 8.9 L Hct 28.9 L POC Glucose 12/05/18 12/04/18 12/04/18 06:31 23:24 16:26 POC Glucose 62 L 81 81 Assessment/Plan All Active Problems (Last Reviewed 06/14/18 @ 10:42 by Arline Galindo) Septic shock (Acute) 78 y/o F with GI bleed, thickening of sigmoid/descending colon on CT 11/29/18, ESRD, admitted for septic shock-unknown source. 1. Clears 2. H/H q6, eliquis held starting 12/04/18, current hemoglobin is 8.9, vital signs stable, digital rectal exam did show maroon blood, will get records from patient's last colonoscopy in 2012 from [place] she does states she may have had colitis before but and unable to tell me anymore about that, currently we will treat conservatively but if her hemoglobin continues to drop we will edith n to do a colonoscopy while she is in the hospital versus as an outpatient. Patient is agreeable to getting an endoscopy if it is needed. 3. Thickening of descending/sigmoid colon?start Cipro Flagyl 4. Patient is on Protonix IV twice daily 5. End-stage renal disease?patient is getting dialysis today. Anju Anders M.D. Pager: [phone] [facility] [address] [place] [address], Outpatient [place], [address] [place] [id number] Office: [phone] Code Visit Inpatient E&M: [id number] Init Hosp L2
--- NOTE | 2018-12-05 16:19 | PCA ---
Faxed to [facility] for EGD/Colonoscopy report. Message left on voicemail.
[2018-12-05 16:56] LABS: Bedside Glucose 121 mg/dL (70-110)
[2018-12-05] MEDS: Heparin 10,000 UNITS/10 ML Vial IV (19:20)
[2018-12-05] MEDS: 0.9% NaCl Peripheral Flush Adult/Peds IV ×2 (20:10→20:15)
[2018-12-05 20:42] LABS: Hematocrit 29.2 % (37-47)
[2018-12-05] MEDS: Ondansetron 4 MG/2 ML Vial IV (21:13)
[2018-12-05] MEDS: Ciprofloxacin 200 MG/100 ML BAG 100 MG IV (21:19)
[2018-12-05 23:21] LABS: Bedside Glucose 104 mg/dL (70-110)
[2018-12-06] VITALS (12 sets, daily range): BP systolic 109–126; BP diastolic 52–65; PULSE 60–79; RESP 16–18; TEMP 36.3–36.9; O2SAT 93–100
[2018-12-06] MEDS: 0.9% NaCl Peripheral Flush Adult/Peds IV ×4 (02:15→23:34)
[2018-12-06 02:54] LABS: Absolute Lymphocyte Count 0.87 X10^3/ul (0.83-4.51); Absolute Neutrophil Count 4.7 X10^3/uL (2.0-7.7); Eosinophil# 0.14 X10^3/uL; Eosinophils% 2.1 % (0-5); Hematocrit 26.4 % (37-47); Hemoglobin 8.2 g/dl (12.0-15.0); Lymphocyte # 0.87 X10^3/ul (4.0); Lymphocyte % 13.2 % (19-41); Mean Corp Hgb Conc 31.1 g/gl (32-36); Mean Corpuscular Hgb 31.3 pg (27.0-32.0); Mean Corpuscular Volume 100.8 fL (81-99); Mean Platelet Vol. 9.2 fl (6.2-12.0); Monocyte# 0.73 X10^3/uL; Monocyte% 11.1 % (0-10); Neutrophil # 4.72 X10^3/uL (2.7-7.7); Neutrophil % 71.8 % (47-70); Platelet Count 91 K/mm3 (150-450); RBC Distribution Width SD 53.7 fl (35.1-43.9); Red Blood Count 2.62 M/mm3 (4.2-5.4); White Blood Count 6.6 K/mm3 (4.4-11.0)
[2018-12-06 02:56] LABS: POSITIVE COUNT NO; POSITIVE DIFFERENTIAL NO; POSITIVE MORPHOLOGY NO
[2018-12-06] MEDS: Menthol/Lanolin/Calamine/Znox 113 GM Tube 1 APPLIC TOPICAL ×3 (06:41→21:38)
[2018-12-06] MEDS: oxyCODONE 5 MG Tablet PO ×4 (06:50→22:30)
[2018-12-06 07:16] LABS: Bedside Glucose 78 mg/dL (70-110)
--- NOTE | 2018-12-06 08:34 | PCM.PN.SRG ---
Subjective: Patient's hemoglobin this morning is 8.2 down from 8.9/9, patient did have bloody stool recorded last night however early this morning there is no nursing notes description of stool and patient is unsure. - Physical Exam General: Alert, Cooperative, No apparent distress Abdomen: Soft, Non-Distended, Tender - Right upper and lower quadrants, no peritoneal signs Vital Signs Temp Pulse Resp BP Pulse Ox 97.4 F L 79 18 126/57 H 93 12/06/18 06:05 12/06/18 06:57 12/06/18 06:05 12/06/18 06:05 12/06/18 07:36 Oxygen Flow Rate (L/min) 2 Oxygen Delivery Method Nasal Cannula Weight: 199 lb 8.293 oz Body Mass Index (BMI) 30.4 Finger Stick Blood Glucose 145 Intake and Output for Last 24 Hours 12/04/18 12/05/18 12/06/18 23:59 23:59 23:59 Intake Total 580 / 580 764 / 764 Output Total 0 / 0 2800 / 2800 Balance 580 / 580 -2036 / -2036 Microbiology Past 72 Hours 11/29/18 06:45 Blood Culture - Final Blood Culture (Wb)#3 - Line Draw No growth in 5 days. 11/28/18 14:04 Blood Culture - Final Blood Culture (Wb) - No Site/Description Given No growth in 5 days. 11/28/18 10:48 Blood Culture - Final Blood Culture (Wb) - Left Hand No growth in 5 days. Laboratory Tests Past 24 Hrs 12/05/18 12/05/18 12/06/18 14:20 20:15 02:20 WBC 6.6 RBC 2.62 L Hgb 8.9 L 9.0 L 8.2 L Hct 28.9 L 29.2 L 26.4 L MCV 100.8 H MCH 31.3 MCHC 31.1 L RDW 15.0 H RDW Differential 53.7 H Plt Count 91 L MPV 9.2 Immature Gran % (Auto) 1.800 H Neut % (Auto) 71.8 H Lymph % (Auto) 13.2 L Saline % (Auto) 11.1 H Eos % (Auto) 2.1 Baso % (Auto) 0.0 Absolute Neuts (auto) 4.7 Absolute Lymphs (auto) 0.87 Total Counted Not Reportable POC Glucose 12/06/18 12/05/18 12/05/18 06:44 21:17 16:49 POC Glucose 78 104 121 H Medical Necessity - Tobacco Use Smoking Status: Former smoker Assessment/Plan All Active Problems (Last Reviewed 06/14/18 @ 10:42 by Arline Galindo) Septic shock (Acute) 78 y/o F with GI bleed, thickening of sigmoid/descending colon on CT 11/29/18, ESRD, admitted for septic shock-unknown source. 1. Clears 2. H/H q6, eliquis held starting 12/04/18, current hemoglobin is 8.9, vital signs stable, will get records from patient's last colonoscopy in 2012 from [place], currently we will treat conservatively but if her hemoglobin continues to drop we will plan to do a colonoscopy while she is in the hospital versus as an outpatient. Patient is agreeable to getting an endoscopy if it is needed. 3. Thickening of descending/sigmoid colon?start Cipro Flagyl 4. Patient is on Protonix IV twice daily 5. End-stage renal disease?patient on dialysis Wednesday. Anju Anders M.D. Pager: [phone] [facility] [address] [place] [address], [facility], [address] [place] [address] Office: [phone] Code Visit Inpatient E&M: [id number] [facility] Hosp L1
[2018-12-06] MEDS: SEVELAMER CARBONATE 800 MG TABLET PO ×2 (08:40→13:09)
[2018-12-06] MEDS: Acetaminophen 500 MG Tablet 1000 MG PO ×2 (09:19→19:49)
[2018-12-06] MEDS: Metoclopramide 10 MG Tablet PO ×2 (09:44→21:39)
[2018-12-06] MEDS: Ammonium Lactate 225 gm Bottle 1 APPLIC TOPICAL ×2 (09:44→21:38)
[2018-12-06] MEDS: Ciprofloxacin 200 MG/100 ML BAG 100 MG IV ×2 (09:44→21:55)
[2018-12-06] MEDS: Amiodarone 200 MG Tablet PO (09:44)
--- NOTE | 2018-12-06 10:31 | PCM.PN.REN ---
Subjective: Patient started to have blood per rectum yesterday so the discharge was consult. Patient tolerated hemodialysis session well. Surgery team is following now for GI bleed. Hemoglobin today 8.2 Nausea no vomiting. No shortness of breath. Still have Right-side rib cage pain - Physical Exam General: Alert, Oriented x3 HEENT: Atraumatic Oral: Moist Mucosa Neck: Supple, No JVD Lungs: Clear to auscultation, Normal air movement, No rhonchi, No wheeze Cardiovascular: Regular rate, Regular Rhythm, Normal S1, Normal S2 Abdomen: Bowel Sounds Present, Soft, Non Tender, Non-Distended Extremities: No clubbing, No cyanosis, Edema - +1 edema of upper extremities and lower extremities Musculoskeletal: No Tenderness to Palpation of Joints or Extremities Lymphatic: No Cervical, Supraclavicular, or Inguinal Adenopathy Neurological: Cranial nerves II-XII grossly intact, Neuro grossly intact Psych/Mental Status: Normal Affect Vital Signs Temp Pulse Resp BP Pulse Ox 97.7 F L 65 18 112/57 L 99 12/06/18 09:42 12/06/18 09:42 12/06/18 09:42 12/06/18 09:42 12/06/18 09:42 Oxygen Flow Rate (L/min) 2 Oxygen Delivery Method Nasal Cannula Weight: 90.5 kg Body Mass Index (BMI) 30.4 Finger Stick Blood Glucose 145 Intake and Output for Last 24 Hours 12/04/18 12/05/18 12/06/18 23:59 23:59 23:59 Intake Total 580 / 580 764 / 764 Output Total 0 / 0 2800 / 2800 Balance 580 / 580 -2036 / -203 Microbiology Past 72 Hours 11/29/18 06:45 Blood Culture - Final Blood Culture (Wb)#3 - Line Draw No growth in 5 days. 11/28/18 14:04 Blood Culture - Final Blood Culture (Wb) - No Site/Description Given No growth in 5 days. 11/28/18 10:48 Blood Culture - Final Blood Culture (Wb) - Left Hand No growth in 5 days. Laboratory Tests Past 24 Hrs 12/05/18 12/05/18 12/06/18 14:20 20:15 02:20 WBC 6.6 RBC 2.62 L Hgb 8.9 L 9.0 L 8.2 L Hct 28.9 L 29.2 L 26.4 L MCV 100.8 H MCH 31.3 MCHC 31.1 L RDW 15.0 H RDW Differential 53.7 H Plt Count 91 L MPV 9.2 Immature Gran % (Auto) 1.800 H Neut % (Auto) 71.8 H Lymph % (Auto) 13.2 L [place] % (Auto) 11.1 H Eos % (Auto) 2.1 Baso % (Auto) 0.0 Absolute Neuts (auto) 4.7 Absolute Lymphs (auto) 0.87 Total Counted Not Reportable POC Glucose 12/06/18 12/05/18 12/05/18 06:44 21:17 16:49 POC Glucose 78 104 121 H Medical Necessity - Tobacco Use Smoking Status: Former smoker Assessment/Plan All Active Problems (Last Reviewed 06/14/18 @ 10:42 by Arline Galindo) Septic shock (Acute) 1-End stage renal disease on Wednesday hemodialysis schedule. Last hemodialysis session December 05. No need for hemodialysis session today. Next hemodialysis session will be tomorrow 2-Septic shock. Better. Off pressors off Abx now 3-anemia: Continue WILLY as per the chronic HD order 4- BMD: Continue sevelamer TID with meals. P level improved. 5-GI bleed. Surgical team is following. Follow H&H. 6-colitis. Patient was started on Flagyl Renal team will continue to follow Please call with any question or concern. Jonna Martin MD [phone]
[2018-12-06 10:37] LABS: Bedside Glucose 91 mg/dL (70-110)
[2018-12-06 11:26] LABS: Bedside Glucose 92 mg/dL (70-110)
[2018-12-06 13:48] LABS: Hemoglobin 8.9 g/dl (12.0-15.0)
--- NOTE | 2018-12-06 14:15 | PN_ITS ---
<Mariluz Gaffney - Last Filed: 12/06/18 14:15> Subjective: Patient seen and examined. Complains of right leg pain. Denies abdominal pain, nausea, vomiting, diarrhea. She denies further bloody stool. - Physical Exam General: Alert, Oriented x3, Cooperative, No apparent distress HEENT: Atraumatic, PERRLA, EOMI, Normocephalic Neck: Supple, No JVD, Negative Carotid Bruits Lungs: Clear to auscultation, Diminished Cardiovascular: Regular rate, Regular Rhythm, Normal S1, Normal S2, No murmurs Abdomen: Bowel Sounds Present, Soft, Non Tender, Non-Distended Extremities: No clubbing, No cyanosis, Capillary Refill Less than 3 Seconds, Edema - Nonpitting edema bilateral lower extremities and right upper extremity. Skin: No rashes, No breakdown Musculoskeletal: No Tenderness to Palpation of Joints or Extremities Neurological: Cranial nerves II-XII grossly intact, Neuro grossly intact Psych/Mental Status: Normal Affect, Appropriate Vital Signs Temp Pulse Resp BP Pulse Ox 97.7 F L 64 18 112/57 L 99 12/06/18 09:42 12/06/18 11:02 12/06/18 09:42 12/06/18 09:42 12/06/18 09:42 Oxygen Flow Rate (L/min) 2 Oxygen Delivery Method Nasal Cannula Weight: 199 lb 8.293 oz Body Mass Index (BMI) 30.4 Finger Stick Blood Glucose 145 Intake and Output for Last 24 Hours 12/04/18 12/05/18 12/06/18 23:59 23:59 23:59 Intake Total 580 / 580 1672 / 1672 Output Total 0 / 0 2800 / 2800 Balance 580 / 580 -1128 / -1128 Microbiology Past 72 Hours 11/29/18 06:45 Blood Culture - Final Blood Culture (Wb)#3 - Line Draw No growth in 5 days. 11/28/18 14:04 Blood Culture - Final Blood Culture (Wb) - No Site/Description Given No growth in 5 days. 11/28/18 10:48 Blood Culture - Final Blood Culture (Wb) - Left Hand No growth in 5 days. Laboratory Tests Past 24 Hrs 12/05/18 12/05/18 12/06/18 14:20 20:15 02:20 WBC 6.6 RBC 2.62 L Hgb 8.9 L 9.0 L 8.2 L Hct 28.9 L 29.2 L 26.4 L MCV 100.8 H MCH 31.3 MCHC 31.1 L RDW 15.0 H RDW Differential 53.7 H Plt Count 91 L MPV 9.2 Immature Gran % (Auto) 1.800 H Neut % (Auto) 71.8 H Lymph % (Auto) 13.2 L Sebastian % (Auto) 11.1 H Eos % (Auto) 2.1 Baso % (Auto) 0.0 Absolute Neuts (auto) 4.7 Absolute Lymphs (auto) 0.87 Total Counted Not Reportable 12/06/18 13:05 WBC RBC Hgb 8.9 L Hct 29.0 L MCV MCH MCHC RDW RDW Differential Plt Count MPV Immature Gran % (Auto) Neut % (Auto) Lymph % (Auto) Sebastian % (Auto) Eos % (Auto) Baso % (Auto) Absolute Neuts (auto) Absolute Lymphs (auto) Total Counted POC Glucose 12/06/18 12/06/18 12/05/18 11:10 06:44 21:17 POC Glucose 92 78 104 12/05/18 12/05/18 16:49 11:10 POC Glucose 121 H 91 Medical Necessity - Tobacco Use Smoking Status: Former smoker Assessment/Plan All Active Problems (Last Reviewed 06/14/18 @ 10:42 by Arline Galindo) Septic shock (Acute) The patient is a 78 year old F admitted 11/28/18 due to fall. 1. Septic shock, unclear source-patient initially required ICU for vasopressor therapy due to hypotension. Patient was treated with broad-spectrum antibiotics and improved clinically. Blood cultures negative. Chest x-ray without acute process. CT of abdomen and pelvis showed nonspecific acute inflammatory bowel disease involving the descending colon with trace of free fluid in the pericolic gutter and pelvis. Diverticular changes within the descending and sigmoid colon. Patient improved and further antibiotics discontinued. Given acute GI bleed, question if initial source was GI related? Restarted on IV Cipro and IV Flagyl. 2. ESRD on hemodialysis-follows with nephrology, hemodialysis Wednesday, Wednesday, Wednesday. Patient to undergo dialysis this afternoon. 3. Acute GI bleed-initially thought to be postmenopausal vaginal bleeding, resolved-transvaginal ultrasound unremarkable. Anticoagulation on hold. Rectal exam with copious amount of blood, maroon in color with clots. H&H stable. Consult placed to Dr. Anders, general surgery. Continue IV Protonix and IV Flagyl and IV Cipro given CT abdomen as noted above. Advance to full liquid. 4. Elevated troponin, secondary to demand ischemia as result of #1 5. Chronic hypoxic respiratory failure-on baseline home O2. Continue supplement oxygen to maintain O2 at or above 90%. 6. Hypertension-home lisinopril regimen discontinued. Metoprolol decreased to 12.5 mg p.o. daily. 7. Hyperlipidemia- continue statin. 8. Ischemic cardiomyopathy status post AICD placement 9. Paroxysmal atrial fibrillation-on amiodarone, Eliquis. Metoprolol decreased to 12.5 mg p.o. daily. Eliquis on hold given acute GI bleed. 10. Type 2 diabetes mellitus-home long-acting regimen decreased to 10 units daily due to hypoglycemia. Accu-Cheks ACHS. 11. Obesity-encouraged diet lifestyle modifications. DVT prophylaxis-SCDs This patient was seen by JUNAID Cason under the supervision of Dr. Aquino. <Manuel Aquino - Last Filed: 12/06/18 14:53> - Physical Exam Vital Signs Temp Pulse Resp BP Pulse Ox 97.7 F L 64 18 112/57 L 99 12/06/18 09:42 12/06/18 11:02 12/06/18 09:42 12/06/18 09:42 12/06/18 09:42 Oxygen Flow Rate (L/min) 2 Oxygen Delivery Method Nasal Cannula Weight: 199 lb 8.293 oz Body Mass Index (BMI) 30.4 Finger Stick Blood Glucose 145 Intake and Output for Last 24 Hours 12/04/18 12/05/18 12/06/18 23:59 23:59 23:59 Intake Total 580 / 580 1672 / 1672 Output Total 0 / 0 2800 / 2800 Balance 580 / 580 -1128 / -1128 Microbiology Past 72 Hours 11/29/18 06:45 Blood Culture - Final Blood Culture (Wb)#3 - Line Draw No growth in 5 days. 11/28/18 14:04 Blood Culture - Final Blood Culture (Wb) - No Site/Description Given No growth in 5 days. 11/28/18 10:48 Blood Culture - Final Blood Culture (Wb) - Left Hand No growth in 5 days. Laboratory Tests Past 24 Hrs 12/05/18 12/05/18 12/06/18 14:20 20:15 02:20 WBC 6.6 RBC 2.62 L Hgb 8.9 L 9.0 L 8.2 L Hct 28.9 L 29.2 L 26.4 L MCV 100.8 H MCH 31.3 MCHC 31.1 L RDW 15.0 H RDW Differential 53.7 H Plt Count 91 L MPV 9.2 Immature Gran % (Auto) 1.800 H Neut % (Auto) 71.8 H Lymph % (Auto) 13.2 L Sebastian % (Auto) 11.1 H Eos % (Auto) 2.1 Baso % (Auto) 0.0 Absolute Neuts (auto) 4.7 Absolute Lymphs (auto) 0.87 Total Counted Not Reportable 12/06/18 13:05 WBC RBC Hgb 8.9 L Hct 29.0 L MCV MCH MCHC RDW RDW Differential Plt Count MPV Immature Gran % (Auto) Neut % (Auto) Lymph % (Auto) Sebastian % (Auto) Eos % (Auto) Baso % (Auto) Absolute Neuts (auto) Absolute Lymphs (auto) Total Counted POC Glucose 12/06/18 12/06/18 12/05/18 11:10 06:44 21:17 POC Glucose 92 78 104 12/05/18 12/05/18 16:49 11:10 POC Glucose 121 H 91 Assessment/Plan Hospitalist note: I am seeing this patient in conjunction with Mariluz Gaffney. I independently seen and examined the patient. Progress note above and, laboratory data and I agree with above treatment and workup plan. Patient seen and examined today. She denied any more bloody stools. Denied abdominal pain, nausea vomiting. She admits that she is hungry and she wants to eat. Her vital signs are stable. - Physical Exam General: Alert, Oriented x3, Cooperative, No apparent distress. HEENT: Atraumatic, PERRLA, EOMI. Neck: Supple, No JVD, Negative Carotid Bruits, Trachea Midline, Thyroid Normal. Lungs: Diminished breath sounds bilateral, otherwise clear, No rhonchi, No wheeze, No rales. Cardiovascular: Regular rate, Regular Rhythm, Normal S1, Normal S2, PMI Normal. Abdomen: Bowel Sounds Present, Soft, Non Tender, Non-Distended, No Hepato- splenomegaly. Extremities: No clubbing, No cyanosis, No edema Skin: No rashes, No breakdown Neurological: Neuro grossly intact Vital Signs are stable. Assessment and plan: #1 acute GI bleed: Possibly due to nonspecific colitis and being on Eliquis. Her hemoglobin and crit are stable. No indication for blood transfusion. She was started on IV Flagyl and ciprofloxacin because of nonspecific inflammatory changes on CT scan abdomen. General surgery on the case. Plan to continue same treatment. I discussed with the patient the benefits and risks of continuing Eliquis and she agreed to stop Eliquis at least for short period of time to allow healing of the bleeding process and inflamed colon. #2 septic versus hypovolemic shock: Without evidence of acute infection, possible colitis is in the differential diagnosis and could be the reason for her shock. Patient has been off IV vasopressors. Patient was on antibiotics on admission, discontinued. Her blood pressure improved, has been afebrile. Cultures are negative. At this time, blood pressure is maintained without vasopressors or IV fluids. Plan as above. #3 indeterminant troponin: Patient denies any chest pain, this has been chronic. Troponin has been flat, could be due to demand ischemia. #4 other chronic medical problems: Stable, continue current medications as above. This note was generated with [employer] software. It may contain incorrect words, spelling, and punctuation that were not noted in checking the note before signing. Code Visit Inpatient E&M: 10304 Subs Hosp L2
[2018-12-06 16:46] LABS: Bedside Glucose 112 mg/dL (70-110)
[2018-12-06] MEDS: Ondansetron 4 MG/2 ML Vial IV ×2 (17:26→23:34)
--- NOTE | 2018-12-06 19:47 | EKG12_ITS ---
Test Reason : CP Blood Pressure : / mmHG Vent. Rate : 064 BPM Atrial Rate : 063 BPM P-R Int : 000 ms QRS Dur : 204 ms QT Int : 550 ms P-R-T Axes : 000 -72 106 degrees QTc Int : 567 ms Ventricular-paced rhythm Abnormal ECG When compared with ECG of 30-NOV-2018 19:59, Vent. rate has increased BY 2 BPM Confirmed by HELEN COLLIER, MIKE ([id number]), acquisitions editor NELLY ALEXANDER ([id number]) on 12/12/2018 5:28:29 PM Referred By: MADISON Confirmed By:MIKE CERVANTES MD
[2018-12-06 22:17] LABS: Bedside Glucose 132 mg/dL (70-110)
[2018-12-07] VITALS (11 sets, daily range): BP systolic 103–124; BP diastolic 51–66; PULSE 60–68; RESP 16–18; TEMP 36.6–36.9; O2SAT 94–99
[2018-12-07] MEDS: oxyCODONE 5 MG Tablet PO ×3 (03:41→18:30)
[2018-12-07] MEDS: Menthol/Lanolin/Calamine/Znox 113 GM Tube 1 APPLIC TOPICAL ×3 (05:08→22:16)
[2018-12-07] MEDS: 0.9% NaCl Peripheral Flush Adult/Peds IV ×7 (05:20→22:29)
[2018-12-07 06:04] LABS: Anion Gap 10 (5-15); BUN 29 mg/dL (7-18); BUN/Creat Ratio 7.2 RATIO (10-20); Calcium,Total 7.4 mg/dL (8.5-10.1); Chloride 101 mmol/L (98-107); EST Glomerular Filtration Rate 12 mL/min (>60); Est Glom Filt Rate - Afr Amer 14 mL/min (>60); Estimated Creatinine Clearance 11.88 ml/min; Glucose 105 mg/dL (74-106); Potassium 4.2 mmol/L (3.5-5.1); Sodium Level 139 mmol/L (136-145)
[2018-12-07 06:30] LABS: Hematocrit 26.4 % (37-47); Hemoglobin 8.2 g/dl (12.0-15.0); Mean Corp Hgb Conc 31.1 g/gl (32-36); Mean Corpuscular Volume 103.1 fL (81-99); Mean Platelet Vol. 9.1 fl (6.2-12.0); Platelet Count 123 K/mm3 (150-450); RBC Distribution Width CV 14.4 % (11.6-14.6); RBC Distribution Width SD 51.6 fl (35.1-43.9); Red Blood Count 2.56 M/mm3 (4.2-5.4); White Blood Count 6.7 K/mm3 (4.4-11.0)
[2018-12-07 06:31] LABS: Scan Indicated on CBC? Y/N NO
[2018-12-07] MEDS: Ondansetron 4 MG/2 ML Vial IV ×3 (06:38→22:29)
[2018-12-07 06:56] LABS: Bedside Glucose 91 mg/dL (70-110)
[2018-12-07] MEDS: Metoclopramide 10 MG Tablet PO ×2 (07:44→22:16)
[2018-12-07] MEDS: SEVELAMER CARBONATE 800 MG TABLET PO (07:44)
--- NOTE | 2018-12-07 09:49 | PCM.PN.REN ---
Subjective: Pt said she has been vomiting. She can not eat due to vomiting. No SOB. No CP - Physical Exam General: Alert, Oriented x3 HEENT: Atraumatic Oral: Moist Mucosa Neck: Supple, No JVD Lungs: Clear to auscultation, Normal air movement, No rhonchi, No wheeze Cardiovascular: Regular rate, Regular Rhythm, Normal S1, Normal S2 Abdomen: Bowel Sounds Present, Soft, Non Tender Extremities: No clubbing, Edema - +1 edema Musculoskeletal: No Tenderness to Palpation of Joints or Extremities Lymphatic: No Cervical, Supraclavicular, or Inguinal Adenopathy Neurological: Cranial nerves II-XII grossly intact, Neuro grossly intact Psych/Mental Status: Normal Affect Vital Signs Temp Pulse Resp BP Pulse Ox 97.8 F 60 16 103/51 L 94 12/07/18 03:31 12/07/18 07:12 12/07/18 03:31 12/07/18 03:31 12/07/18 07:48 Oxygen Flow Rate (L/min) 2 Oxygen Delivery Method Nasal Cannula Weight: 91.8 kg Body Mass Index (BMI) 30.4 Finger Stick Blood Glucose 145 Intake and Output for Last 24 Hours 12/05/18 12/06/18 12/07/18 23:59 23:59 23:59 Intake Total 2344 / 2344 91.2 / 91.2 Output Total 2800 / 2800 Balance -456 / -456 91.2 / 91.2 Microbiology Past 72 Hours 11/29/18 06:45 Blood Culture - Final Blood Culture (Wb)#3 - Line Draw No growth in 5 days. Laboratory Tests Past 24 Hrs 12/06/18 12/07/18 12/07/18 13:05 05:20 05:20 WBC 6.7 RBC 2.56 L Hgb 8.9 L 8.2 L Hct 29.0 L 26.4 L MCV 103.1 H MCH 32.0 MCHC 31.1 L RDW 14.4 RDW Differential 51.6 H Plt Count 123 L MPV 9.1 Sodium 139 Potassium 4.2 Chloride 101 Carbon Dioxide 28.0 Anion Gap 10 BUN 29 H Creatinine 4.00 H Estim Creat Clear Calc 11.88 Est GFR (MDRD) Af Amer 14 L Est GFR (MDRD) Non-Af 12 L BUN/Creatinine Ratio 7.2 L Glucose 105 Calcium 7.4 L POC Glucose 12/07/18 12/06/18 12/06/18 06:42 21:35 16:32 POC Glucose 91 132 H 112 H 12/06/18 12/05/18 11:10 11:10 POC Glucose 92 91 Medical Necessity - Tobacco Use Smoking Status: Former smoker Assessment/Plan All Active Problems (Last Reviewed 06/14/18 @ 10:42 by Arline Galindo) Septic shock (Acute) 1-End stage renal disease on Wednesday hemodialysis schedule. Will arrange for HD session today . 2-Septic shock. Better. Off pressors off Abx now 3-anemia: Continue WILLY as per the chronic HD order 4- BMD: Continue sevelamer TID with meals. P level improved. 5-GI bleed. Surgical team is following. Follow H&H. 6-colitis. On flagyl and ciprol Renal team will continue to follow Please call with any question or concern. Jonna Martin MD [phone]
[2018-12-07] MEDS: Ciprofloxacin 200 MG/100 ML BAG 100 MG IV ×2 (10:12→23:04)
--- NOTE | 2018-12-07 10:48 | CT_ITS ---
STUDY: CT ABDOMEN AND PELVIS WITHOUT CONTRAST REASON FOR EXAM: Female, 78 years old. Abdominal pain with nausea and vomiting. End-stage renal disease. Sepsis. GI bleed. RADIATION DOSAGE (If Supplied By Facility): CTDIvol = ( 20.30 ) mGy, DLP = ( 1065.13 ) mGycm TECHNIQUE: Transaxial images were obtained from the dome of the diaphragm to the symphysis pubis with oral contrast, and without intravenous contrast. Sagittal and coronal images were reconstructed. Individualized dose optimization techniques were used for this CT. COMPARISON: Comparison is made with prior study dated November 29, 2018. FINDINGS: Small left pleural effusion with calcified pleural plaques. Stable mild degree of compressive atelectasis at the lung bases. Dual chamber pacemaker is seen. Coronary artery calcification. Normal liver. There are surgical clips in the gallbladder fossa consistent with a prior cholecystectomy. Normal spleen. Normal pancreas. Normal bilateral adrenal glands. Normal right kidney. Normal left kidney. Normal visualized stomach. Normal small intestine. There are multiple colonic diverticula consistent with diverticulosis. The previously seen inflammatory changes surrounding the descending colon have resolved. The appendix is visualized and appears normal. There is diffuse atherosclerotic calcification of the abdominal aorta and its major visceral branches, without a demonstrated aneurysm. Normal inferior vena cava. Normal retroperitoneum. Normal urinary bladder. There is absence of the uterus consistent with a prior hysterectomy. Normal abdominal wall. There are degenerative changes of the visualized lumbar spine. CT/Abdomen/Pel W ORAL Cont Only IMPRESSION: Stable small left pleural effusion and calcified pleural plaques with atelectasis at the lung bases. Sigmoid diverticulosis. Electronically Signed: Antonio Pascual MD at 14:49 EST , Service support ,
[2018-12-07 11:41] LABS: Bedside Glucose 133 mg/dL (70-110)
--- NOTE | 2018-12-07 13:24 | PCM.PN.SRG ---
Subjective: Patient states she has been throwing up and complains of right-sided abdominal pain, per nursing she has been spitting up, only documented bowel movement was small amount of blood last night nothing this morning or at this afternoon. CT abdomen pelvis with p.o. contrast scheduled - Physical Exam General: Alert, Cooperative, No apparent distress Abdomen: Soft, Non-Distended, Passing Flatus, Tender - Right upper and lower quadrant, no peritoneal signs Vital Signs Temp Pulse Resp BP Pulse Ox 97.8 F 63 18 106/54 L 97 12/07/18 11:51 12/07/18 12:06 12/07/18 11:51 12/07/18 11:51 12/07/18 11:51 Oxygen Flow Rate (L/min) 2 Oxygen Delivery Method Nasal Cannula Weight: 202 lb 6.15 oz Body Mass Index (BMI) 30.4 Finger Stick Blood Glucose 145 Intake and Output for Last 24 Hours 12/05/18 12/06/18 12/07/18 23:59 23:59 23:59 Intake Total 2344 / 2344 647.2 / 647.2 Output Total 2800 / 2800 Balance -456 / -456 647.2 / 647.2 Laboratory Tests Past 24 Hrs 12/06/18 12/07/18 12/07/18 13:05 05:20 05:20 WBC 6.7 RBC 2.56 L Hgb 8.9 L 8.2 L Hct 29.0 L 26.4 L MCV 103.1 H MCH 32.0 MCHC 31.1 L RDW 14.4 RDW Differential 51.6 H Plt Count 123 L MPV 9.1 Sodium 139 Potassium 4.2 Chloride 101 Carbon Dioxide 28.0 Anion Gap 10 BUN 29 H Creatinine 4.00 H Estim Creat Clear Calc 11.88 Est GFR (MDRD) Af Amer 14 L Est GFR (MDRD) Non-Af 12 L BUN/Creatinine Ratio 7.2 L Glucose 105 Calcium 7.4 L POC Glucose 12/07/18 12/07/18 12/06/18 11:33 06:42 21:35 POC Glucose 133 H 91 132 H 12/06/18 16:32 POC Glucose 112 H Medical Necessity - Tobacco Use Smoking Status: Former smoker Assessment/Plan All Active Problems (Last Reviewed 06/14/18 @ 10:42 by Arline Galindo) Septic shock (Acute) 78 y/o F with GI bleed, thickening of sigmoid/descending colon on CT 11/29/18, ESRD, admitted for septic shock-unknown source. 1. Full's, patient states she has been vomiting, CT abdomen pelvis is scheduled 2. eliquis held starting 12/04/18, current hemoglobin is 8.2, vital signs stable, digital rectal exam did show maroon blood, will get records from patient's last colonoscopy in 2012 from [place] she does states she may have had colitis before but and unable to tell me anymore about that--per the hospital she gave us [place] and there is no colonoscopy done at that location, currently we will treat conservatively. 3. Thickening of descending/sigmoid colon?start Cipro Flagyl 4. Patient is on Protonix IV twice daily 5. End-stage renal disease?patient is getting dialysis today. Anju Anders M.D. Pager: [phone] [facility] [address] [place] [address], [facility], [address] [place] [address] Office: [phone] Code Visit Inpatient E&M: 90464 Subs Hosp L1
--- NOTE | 2018-12-07 13:29 | PN.SURG_ITS ---
Subjective: Patient states she has been throwing up and complains of right-sided abdominal pain, per nursing she has been spitting up, only documented bowel movement was small amount of blood last night nothing this morning or at this afternoon. CT abdomen pelvis with p.o. contrast scheduled - Physical Exam General: Alert, Cooperative, No apparent distress Abdomen: Soft, Non-Distended, Passing Flatus, Tender - Right upper and lower quadrant, no peritoneal signs Vital Signs Temp Pulse Resp BP Pulse Ox 97.8 F 63 18 106/54 L 97 12/07/18 11:51 12/07/18 12:06 12/07/18 11:51 12/07/18 11:51 12/07/18 11:51 Oxygen Flow Rate (L/min) 2 Oxygen Delivery Method Nasal Cannula Weight: 202 lb 6.15 oz Body Mass Index (BMI) 30.4 Finger Stick Blood Glucose 145 Intake and Output for Last 24 Hours 12/05/18 12/06/18 12/07/18 23:59 23:59 23:59 Intake Total 2344 / 2344 647.2 / 647.2 Output Total 2800 / 2800 Balance -456 / -456 647.2 / 647.2 Laboratory Tests Past 24 Hrs 12/06/18 12/07/18 12/07/18 13:05 05:20 05:20 WBC 6.7 RBC 2.56 L Hgb 8.9 L 8.2 L Hct 29.0 L 26.4 L MCV 103.1 H MCH 32.0 MCHC 31.1 L RDW 14.4 RDW Differential 51.6 H Plt Count 123 L MPV 9.1 Sodium 139 Potassium 4.2 Chloride 101 Carbon Dioxide 28.0 Anion Gap 10 BUN 29 H Creatinine 4.00 H Estim Creat Clear Calc 11.88 Est GFR (MDRD) Af Amer 14 L Est GFR (MDRD) Non-Af 12 L BUN/Creatinine Ratio 7.2 L Glucose 105 Calcium 7.4 L POC Glucose 12/07/18 12/07/18 12/06/18 11:33 06:42 21:35 POC Glucose 133 H 91 132 H 12/06/18 16:32 POC Glucose 112 H Medical Necessity - Tobacco Use Smoking Status: Former smoker Assessment/Plan All Active Problems (Last Reviewed 06/14/18 @ 10:42 by Arline Galindo) Septic shock (Acute) 78 y/o F with GI bleed, thickening of sigmoid/descending colon on CT 11/29/18, ESRD, admitted for septic shock-unknown source. 1. Full's, patient states she has been vomiting, CT abdomen pelvis is scheduled 2. eliquis held starting 12/04/18, current hemoglobin is 8.2, vital signs stable, digital rectal exam did show maroon blood, will get records from patient's last colonoscopy in 2012 from [place] she does states she may have had colitis before but and unable to tell me anymore about that--per the hospital she gave us [place] and there is no colonoscopy done at that l ocation, currently we will treat conservatively. 3. Thickening of descending/sigmoid colon?start Cipro Flagyl 4. Patient is on Protonix IV twice daily 5. End-stage renal disease?patient is getting dialysis today. Anju Anders M.D. Pager: [phone] [facility] [address] [place] [address], [facility] [place], [address] [place] [address] Office: [phone] Code Visit Inpatient E&M: 79780 Subs Hosp L1
--- NOTE | 2018-12-07 13:37 | PCM.PROGNOTE ---
<Mariluz Gaffney - Last Filed: 12/07/18 13:44> Subjective: Patient seen and examined. Complains of abdominal pain. Complains of nausea, vomiting. Staff reports patient has not been witnessed vomiting but has been spitting into a bag. No more bloody stools reported by patient or nursing. - Physical Exam General: Alert, Oriented x3, Cooperative HEENT: Atraumatic, PERRLA, EOMI, Normocephalic Neck: Supple, No JVD, Negative Carotid Bruits Lungs: Clear to auscultation, Diminished Cardiovascular: Regular rate, Regular Rhythm, Normal S1, Normal S2, No murmurs Abdomen: Bowel Sounds Present, Soft, Non Tender, Non-Distended Extremities: No clubbing, No cyanosis, No edema, Capillary Refill Less than 3 Seconds, - - Nonpitting edema bilateral lower extremities and right upper extremity. Skin: No rashes, No breakdown Musculoskeletal: No Tenderness to Palpation of Joints or Extremities Neurological: Cranial nerves II-XII grossly intact, Neuro grossly intact Psych/Mental Status: Normal Affect, Appropriate Vital Signs Temp Pulse Resp BP Pulse Ox 97.8 F 63 18 106/54 L 97 12/07/18 11:51 12/07/18 12:06 12/07/18 11:51 12/07/18 11:51 12/07/18 11:51 Oxygen Flow Rate (L/min) 2 Oxygen Delivery Method Nasal Cannula Weight: 202 lb 6.15 oz Body Mass Index (BMI) 30.4 Finger Stick Blood Glucose 145 Intake and Output for Last 24 Hours 12/05/18 12/06/18 12/07/18 23:59 23:59 23:59 Intake Total 2344 / 2344 647.2 / 647.2 Output Total 2800 / 2800 Balance -456 / -456 647.2 / 647.2 Laboratory Tests Past 24 Hrs 12/06/18 12/07/18 12/07/18 13:05 05:20 05:20 WBC 6.7 RBC 2.56 L Hgb 8.9 L 8.2 L Hct 29.0 L 26.4 L MCV 103.1 H MCH 32.0 MCHC 31.1 L RDW 14.4 RDW Differential 51.6 H Plt Count 123 L MPV 9.1 Sodium 139 Potassium 4.2 Chloride 101 Carbon Dioxide 28.0 Anion Gap 10 BUN 29 H Creatinine 4.00 H Estim Creat Clear Calc 11.88 Est GFR (MDRD) Af Amer 14 L Est GFR (MDRD) Non-Af 12 L BUN/Creatinine Ratio 7.2 L Glucose 105 Calcium 7.4 L POC Glucose 12/07/18 12/07/18 12/06/18 11:33 06:42 21:35 POC Glucose 133 H 91 132 H 12/06/18 16:32 POC Glucose 112 H Medical Necessity - Tobacco Use Smoking Status: Former smoker Assessment/Plan All Active Problems (Last Reviewed 06/14/18 @ 10:42 by Arline Galindo) Septic shock (Acute) The patient is a 78 year old F admitted 11/28/18 due to fall. 1. Septic shock, unclear source-patient initially required ICU for vasopressor therapy due to hypotension. Patient was treated with broad-spectrum antibiotics and improved clinically. Blood cultures negative. Chest x-ray without acute process. CT of abdomen and pelvis showed nonspecific acute inflammatory bowel disease involving the descending colon with trace of free fluid in the pericolic gutter and pelvis. Diverticular changes within the descending and sigmoid colon. Patient improved and further antibiotics discontinued. Given acute GI bleed, question if initial source was GI related? Restarted on IV Cipro and IV Flagyl. 2. ESRD on hemodialysis-follows with nephrology, hemodialysis Wednesday, Wednesday, Wednesday. Patient to undergo dialysis this afternoon. 3. Acute GI bleed-initially thought to be postmenopausal vaginal bleeding, resolved-transvaginal ultrasound unremarkable. Anticoagulation on hold. Rectal exam with copious amount of blood, maroon in color with clots. H&H stable. Consult placed to Dr. Anders, general surgery. Continue IV Protonix and IV Flagyl and IV Cipro given CT abdomen as noted above. Advance to full liquid. Patient reports abdominal pain and nausea/vomiting. Obtain CT of abdomen with oral contrast. Plan to treat conservatively. Further recommendations per surgery. 4. Elevated troponin, secondary to demand ischemia as result of #1 5. Chronic hypoxic respiratory failure-on baseline home O2. Continue supplement oxygen to maintain O2 at or above 90%. 6. Hypertension-home lisinopril regimen discontinued. Metoprolol decreased to 12.5 mg p.o. daily. 7. Hyperlipidemia- continue statin. 8. Ischemic cardiomyopathy status post AICD placement 9. Paroxysmal atrial fibrillation-on amiodarone, Eliquis. Metoprolol decreased to 12.5 mg p.o. daily. Eliquis on hold given acute GI bleed. 10. Type 2 diabetes mellitus-home long-acting regimen decreased to 10 units daily due to hypoglycemia. Accu-Cheks ACHS. 11. Obesity-encouraged diet lifestyle modifications. DVT prophylaxis-SCDs Discharge planning: SNF when medically stable. Possibly tomorrow if hemoglobin remains stable and no further blood per rectum. This patient was seen by JUNAID Cason under the supervision of Dr. Aquino. <Manuel Aquino E - Last Filed: 12/07/18 13:59> - Physical Exam Vital Signs Temp Pulse Resp BP Pulse Ox 97.8 F 63 18 106/54 L 97 12/07/18 11:51 12/07/18 12:06 12/07/18 11:51 12/07/18 11:51 12/07/18 11:51 Oxygen Flow Rate (L/min) 2 Oxygen Delivery Method Nasal Cannula Weight: 202 lb 6.15 oz Body Mass Index (BMI) 30.4 Finger Stick Blood Glucose 145 Intake and Output for Last 24 Hours 12/05/18 12/06/18 12/07/18 23:59 23:59 23:59 Intake Total 2344 / 2344 647.2 / 647.2 Output Total 2800 / 2800 Balance -456 / -456 647.2 / 647.2 Laboratory Tests Past 24 Hrs 12/07/18 12/07/18 05:20 05:20 WBC 6.7 RBC 2.56 L Hgb 8.2 L Hct 26.4 L MCV 103.1 H MCH 32.0 MCHC 31.1 L RDW 14.4 RDW Differential 51.6 H Plt Count 123 L MPV 9.1 Sodium 139 Potassium 4.2 Chloride 101 Carbon Dioxide 28.0 Anion Gap 10 BUN 29 H Creatinine 4.00 H Estim Creat Clear Calc 11.88 Est GFR (MDRD) Af Amer 14 L Est GFR (MDRD) Non-Af 12 L BUN/Creatinine Ratio 7.2 L Glucose 105 Calcium 7.4 L POC Glucose 12/07/18 12/07/18 12/06/18 11:33 06:42 21:35 POC Glucose 133 H 91 132 H 12/06/18 16:32 POC Glucose 112 H Assessment/Plan Hospitalist note: I am seeing this patient in conjunction with Mariluz Gaffney. I independently seen and examined the patient. Progress note above and, laboratory data and I agree with above treatment and workup plan. Today, patient complained of persistent nausea since yesterday, vomiting as well. Nursing staff reported that she had no vomiting but she has been spitting up in a bag. No reported rectal bleeding anymore. Patient seen and examined today. Her vital signs are stable - Physical Exam General: Alert, Oriented x3, Cooperative, No apparent distress. HEENT: Atraumatic, PERRLA, EOMI. Neck: Supple, No JVD, Negative Carotid Bruits, Trachea Midline, Thyroid Normal. Lungs: Diminished breath sounds bilateral, otherwise clear, No rhonchi, No wheeze, No rales. Cardiovascular: Regular rate, Regular Rhythm, Normal S1, Normal S2, PMI Normal. Abdomen: Bowel Sounds Present, Soft, minimal tenderness on deep palpation, no guarding or rigidity, Non-Distended, No Hepato-splenomegaly. Extremities: No clubbing, No cyanosis, No edema Skin: No rashes, No breakdown Neurological: Neuro grossly intact Vital Signs are stable. Assessment and plan: #1 acute GI bleed: Possibly due to nonspecific colitis and being on Eliquis. Hemoglobin and hematocrit are stable. No indication for blood transfusion. She is on IV Flagyl and ciprofloxacin because of nonspecific inflammatory changes on CT scan abdomen. General surgery on the case. Eliquis held and probably patient will need to be off Eliquis for some time. #2 probable nonspecific acute colitis: CT scan abdomen and pelvis on admission reviewed and revealed nonspecific and from the changes. Patient was started on IV Flagyl and ciprofloxacin. She is still symptomatic with nausea, mild abdominal pain. General surgeon on the case. Plan will do CT scan abdomen and pelvis with oral contrast. #3 septic versus hypovolemic shock: Without evidence of acute infection, possible colitis is in the differential diagnosis and could be the reason for her shock. Patient has been off IV vasopressors. Patient was on antibiotics on admission, discontinued. Her blood pressure improved, has been afebrile. Cultures are negative. At this time, blood pressure is maintained without vasopressors or IV fluids. Plan as above. #4 indeterminant troponin: Patient denies any chest pain, this has been chronic. Troponin has been flat, could be due to demand ischemia. #5 other chronic medical problems: Stable, continue current medications as above. This note was generated with [employer] dictation software. It may contain incorrect words, spelling, and punctuation that were not noted in checking the note before signing. Code Visit Inpatient E&M: 47738 Subs Hosp L2
[2018-12-07] MEDS: Ammonium Lactate 225 gm Bottle 1 APPLIC TOPICAL ×2 (14:37→22:16)
[2018-12-07 18:26] LABS: Bedside Glucose 106 mg/dL (70-110)
[2018-12-07] MEDS: Heparin 10,000 UNITS/10 ML Vial IV (18:31)
--- NOTE | 2018-12-07 20:45 | DIALYSIS ---
Hemodialysis tx completed x 3.5 hours. Pt tolerated tx fair. Fluid removed only 1700ml due to drop in BP that resolved with decreased UF goal. Vitals stable post tx. verbal report given to EDSON Nguyễn post tx
[2018-12-07] MEDS: Amiodarone 200 MG Tablet PO (22:17)
[2018-12-07] MEDS: Acetaminophen 500 MG Tablet 1000 MG PO (22:29)
[2018-12-07 22:36] LABS: Bedside Glucose 90 mg/dL (70-110)
[2018-12-08] VITALS (7 sets, daily range): BP systolic 103–148; BP diastolic 52–79; PULSE 64–70; RESP 16–17; TEMP 36.6–36.7; O2SAT 96–100
[2018-12-08] MEDS: oxyCODONE 5 MG Tablet PO ×2 (03:13→10:45)
[2018-12-08] MEDS: Menthol/Lanolin/Calamine/Znox 113 GM Tube 1 APPLIC TOPICAL (05:01)
[2018-12-08] MEDS: 0.9% NaCl Peripheral Flush Adult/Peds IV ×3 (05:12→11:36)
[2018-12-08 05:25] LABS: Hemoglobin 8.3 g/dl (12.0-15.0); Mean Corp Hgb Conc 30.7 g/gl (32-36); Mean Corpuscular Hgb 31.6 pg (27.0-32.0); Mean Corpuscular Volume 102.7 fL (81-99); Mean Platelet Vol. 8.9 fl (6.2-12.0); Platelet Count 131 K/mm3 (150-450); RBC Distribution Width CV 14.4 % (11.6-14.6); RBC Distribution Width SD 51.1 fl (35.1-43.9); Red Blood Count 2.63 M/mm3 (4.2-5.4); White Blood Count 7.1 K/mm3 (4.4-11.0)
[2018-12-08 05:27] LABS: Scan Indicated on CBC? Y/N NO
[2018-12-08 06:06] LABS: BUN 15 mg/dL (7-18); Creatinine, Serum 2.51 mg/dL (0.55-1.02); Estimated Creatinine Clearance 18.93 ml/min; Glucose 83 mg/dL (74-106)
[2018-12-08 06:07] LABS: Anion Gap 9 (5-15); Calcium,Total 7.7 mg/dL (8.5-10.1); Chloride 100 mmol/L (98-107); EST Glomerular Filtration Rate 20 mL/min (>60); Est Glom Filt Rate - Afr Amer 24 mL/min (>60); Potassium 3.6 mmol/L (3.5-5.1); Sodium Level 137 mmol/L (136-145)
[2018-12-08 06:46] LABS: Bedside Glucose 72 mg/dL (70-110)
--- NOTE | 2018-12-08 08:56 | PCM.PN.SRG ---
Subjective: pt currently denies n/v after having cream of wheat, CT a/p without contrast did not show anything acute - pt did have stool in right colon, ?cause of R sided pain? - Physical Exam General: Alert, Cooperative, No apparent distress HEENT: Atraumatic Lungs: Normal air movement Cardiovascular: Regular rate Abdomen: Soft, Non-Distended, Tender - RUQ/RLQ no PS Vital Signs Temp Pulse Resp BP Pulse Ox 98.1 F 64 16 148/79 H 96 12/08/18 02:56 12/08/18 06:58 12/08/18 02:56 12/08/18 02:56 12/08/18 07:30 Oxygen Flow Rate (L/min) 2 Oxygen Delivery Method Nasal Cannula Weight: 202 lb 6.15 oz Body Mass Index (BMI) 30.4 Finger Stick Blood Glucose 145 Intake and Output for Last 24 Hours 12/06/18 12/07/18 12/08/18 23:59 23:59 23:59 Intake Total 2344 / 2344 1319.2 / 1319.2 132.9 / 132.9 Output Total 2800 / 2800 Balance -456 / -456 1319.2 / 1319.2 132.9 / 132.9 Laboratory Tests Past 24 Hrs 12/08/18 12/08/18 05:10 05:10 WBC 7.1 RBC 2.63 L Hgb 8.3 L Hct 27.0 L MCV 102.7 H MCH 31.6 MCHC 30.7 L RDW 14.4 RDW Differential 51.1 H Plt Count 131 L MPV 8.9 Sodium 137 Potassium 3.6 Chloride 100 Carbon Dioxide 28.0 Anion Gap 9 BUN 15 Creatinine 2.51 H Estim Creat Clear Calc 18.93 Est GFR (MDRD) Af Amer 24 L Est GFR (MDRD) Non-Af 20 L BUN/Creatinine Ratio 6.0 L Glucose 83 Calcium 7.7 L POC Glucose 12/08/18 12/07/18 12/07/18 06:43 20:48 17:24 POC Glucose 72 90 106 12/07/18 11:33 POC Glucose 133 H Medical Necessity - Tobacco Use Smoking Status: Former smoker Assessment/Plan All Active Problems (Last Reviewed 06/14/18 @ 10:42 by Arline Galindo) Septic shock (Acute) 78 y/o F with GI bleed, thickening of sigmoid/descending colon on CT 11/29/18, ESRD, admitted for septic shock-unknown source-?colitis. 1. Full's, would recommend low fiber diet if she can tolerate fulls 2. eliquis held starting 12/04/18, current hemoglobin is 8.3, vital signs stable, still trying to obtain previous records from [place], no further BM/bloody BM- will continue to treat conservatively. 3. Thickening of descending/sigmoid colon- Cipro Flagyl, CT a/p 12/07 no acute process, +stool in right colon, diverticulosis sigmoid (no contrast unable to better evaluate colon-pt didn't tolerate PO contrast well), will try some colace to help with the constipation 4. Patient is on Protonix IV twice daily 5. End-stage renal disease?patient is getting dialysis M/W/F. Anju Anders M.D. Pager: [phone] [facility] [address] [place] [address], [facility], [address] [place] [id number] Office: [phone]
--- NOTE | 2018-12-08 08:57 | PCM.PN.REN ---
Subjective: Pt said her nausea is better. She was able to keep some bites this morning breathing is stable. - Physical Exam General: Alert, Oriented x3 HEENT: Atraumatic Oral: Moist Mucosa Neck: Supple, No JVD Lungs: Clear to auscultation, Normal air movement, No rhonchi, No wheeze Cardiovascular: Regular rate, Regular Rhythm, Normal S1, Normal S2 Abdomen: Bowel Sounds Present, Soft, Non-Distended Extremities: No clubbing, No cyanosis, Edema - +2 edema of LE Musculoskeletal: No Muscle Wasting Lymphatic: No Cervical, Supraclavicular, or Inguinal Adenopathy Neurological: Cranial nerves II-XII grossly intact, Neuro grossly intact Psych/Mental Status: Appropriate Vital Signs Temp Pulse Resp BP Pulse Ox 98.1 F 64 16 148/79 H 96 12/08/18 02:56 12/08/18 06:58 12/08/18 02:56 12/08/18 02:56 12/08/18 07:30 Oxygen Flow Rate (L/min) 2 Oxygen Delivery Method Nasal Cannula Weight: 91.8 kg Body Mass Index (BMI) 30.4 Finger Stick Blood Glucose 145 Intake and Output for Last 24 Hours 12/06/18 12/07/18 12/08/18 23:59 23:59 23:59 Intake Total 2344 / 2344 1319.2 / 1319.2 132.9 / 132.9 Output Total 2800 / 2800 Balance -456 / -456 1319.2 / 1319.2 132.9 / 132.9 Laboratory Tests Past 24 Hrs 12/08/18 12/08/18 05:10 05:10 WBC 7.1 RBC 2.63 L Hgb 8.3 L Hct 27.0 L MCV 102.7 H MCH 31.6 MCHC 30.7 L RDW 14.4 RDW Differential 51.1 H Plt Count 131 L MPV 8.9 Sodium 137 Potassium 3.6 Chloride 100 Carbon Dioxide 28.0 Anion Gap 9 BUN 15 Creatinine 2.51 H Estim Creat Clear Calc 18.93 Est GFR (MDRD) Af Amer 24 L Est GFR (MDRD) Non-Af 20 L BUN/Creatinine Ratio 6.0 L Glucose 83 Calcium 7.7 L POC Glucose 12/08/18 12/07/18 12/07/18 06:43 20:48 17:24 POC Glucose 72 90 106 12/07/18 11:33 POC Glucose 133 H Medical Necessity - Tobacco Use Smoking Status: Former smoker Assessment/Plan All Active Problems (Last Reviewed 06/14/18 @ 10:42 by Arline Galindo) Septic shock (Acute) 1-End stage renal disease on Wednesday hemodialysis schedule. Last HD session 12/07. No need for HD session today. next session 12/09 2-Septic shock. Better. Off pressors off Abx now 3-anemia: Continue WILLY as per the chronic HD order 4- BMD: Continue sevelamer TID with meals. P level improved.Last P level on 12/01 was 5.0 5-GI bleed. Surgical team is following. Stable 6-colitis. On flagyl and ciprol. [facility] Renal team will continue to follow Please call with any question or concern. Jonna Martin MD [phone]
--- NOTE | 2018-12-08 09:00 | PN.SURG_ITS ---
Subjective: pt currently denies n/v after having cream of wheat, CT a/p without contrast did not show anything acute - pt did have stool in right colon, ?cause of R sided pain? - Physical Exam General: Alert, Cooperative, No apparent distress HEENT: Atraumatic Lungs: Normal air movement Cardiovascular: Regular rate Abdomen: Soft, Non-Distended, Tender - RUQ/RLQ no PS Vital Signs Temp Pulse Resp BP Pulse Ox 98.1 F 64 16 148/79 H 96 12/08/18 02:56 12/08/18 06:58 12/08/18 02:56 12/08/18 02:56 12/08/18 07:30 Oxygen Flow Rate (L/min) 2 Oxygen Delivery Method Nasal Cannula Weight: 202 lb 6.15 oz Body Mass Index (BMI) 30.4 Finger Stick Blood Glucose 145 Intake and Output for Last 24 Hours 12/06/18 12/07/18 12/08/18 23:59 23:59 23:59 Intake Total 2344 / 2344 1319.2 / 1319.2 132.9 / 132.9 Output Total 2800 / 2800 Balance -456 / -456 1319.2 / 1319.2 132.9 / 132.9 Laboratory Tests Past 24 Hrs 12/08/18 12/08/18 05:10 05:10 WBC 7.1 RBC 2.63 L Hgb 8.3 L Hct 27.0 L MCV 102.7 H MCH 31.6 MCHC 30.7 L RDW 14.4 RDW Differential 51.1 H Plt Count 131 L MPV 8.9 Sodium 137 Potassium 3.6 Chloride 100 Carbon Dioxide 28.0 Anion Gap 9 BUN 15 Creatinine 2.51 H Estim Creat Clear Calc 18.93 Est GFR (MDRD) Af Amer 24 L Est GFR (MDRD) Non-Af 20 L BUN/Creatinine Ratio 6.0 L Glucose 83 Calcium 7.7 L POC Glucose 12/08/18 12/07/18 12/07/18 06:43 20:48 17:24 POC Glucose 72 90 106 12/07/18 11:33 POC Glucose 133 H Medical Necessity - Tobacco Use Smoking Status: Former smoker Assessment/Plan All Active Problems (Last Reviewed 06/14/18 @ 10:42 by Arline Galindo) Septic shock (Acute) 78 y/o F with GI bleed, thickening of sigmoid/descending colon on CT 11/29/18, ESRD, admitted for septic shock-unknown source-?colitis. 1. Full's, would recommend low fiber diet if she can tolerate fulls 2. eliquis held starting 12/04/18, current hemoglobin is 8.3, vital signs stable, still trying to obtain previous records from [place], no further BM/bloody BM- will continue to treat conservatively. 3. Thickening of descending/sigmoid colon- Cipro Flagyl, CT a/p 12/07 no acute process, +stool in right colon, diverticulosis sigmoid (no contrast unable to better evaluate colon-pt didn't tolerate PO contrast well), will try some colace to help with the constipation 4. Patient is on Protonix IV twice daily 5. End-stage renal disease?patient is getting dialysis M/W/F. Anju Anders M.D. Pager: [phone] [facility] [address] [place] [address], [facility], [address] [place] [id number] Office: [phone]
[2018-12-08] MEDS: Ammonium Lactate 225 gm Bottle 1 APPLIC TOPICAL (10:44)
[2018-12-08] MEDS: Amiodarone 200 MG Tablet PO (10:44)
[2018-12-08] MEDS: Metoclopramide 10 MG Tablet PO (10:44)
[2018-12-08] MEDS: SEVELAMER CARBONATE 800 MG TABLET PO (10:45)
[2018-12-08] MEDS: Docusate Sodium 100 MG Capsule PO (10:48)
--- NOTE | 2018-12-08 10:58 | TREXTCA.CO_ITS ---
- Diet 12/06/18 14:06 Diet: Diabetic, cardiac diet - Routine Orders/Code Status Enema Type: Fleetz O2 Frequency: Continuous Keep PO Greater than or Equal to (%): 90 Routine Lab Work: CBC - 3 days, BMP - 3 days, - Code Status: [id number]-A - Wound(s) abdomen Wound Type: scratches Left Foot, 4th digit Wound Type: Abrasion Dressing Change: Dry Sterile Dressing BLE Wound Type: scratches - Suggestions for Active Care Change Position every (hours): 2 Times a day to sit in chair: 3 - Therapies Physical Therapy: Eval and Treat Occupational Therapy: Eval and Treat - Problem/Diagnosis (1) Colitis Status: Acute Current Visit: Yes (2) GI bleed Status: Acute Current Visit: Yes (3) Septic shock Status: Acute Current Visit: No (4) Atherosclerotic heart disease of [place] coronary artery without angina pectoris Status: Chronic Comment: Septal Myectomy and CABG X 2 with Left internal thoracic artery to the LAD, and reversed SVG of the PDA per Dr. Cheung @ [facility]. Also subsequent PCI's :PCI X 6 to RCA in 2013; PCI X 3 in 2014: reports not available but referenced in Dr. Saunders's office visit dated 05/24/2018 Current Visit: No (5) Atrial fibrillation Status: Chronic Current Visit: No (6) COPD (chronic obstructive pulmonary disease) Status: Chronic Current Visit: No (7) Chronic hypoxemic respiratory failure Status: Chronic Current Visit: No (8) Congestive heart failure Status: Chronic Current Visit: No (9) Diabetic neuropathy Status: Chronic Current Visit: No (10) End stage renal disease Status: Chronic Current Visit: No (11) History of PTCA Status: Chronic Comment: PCI X 6 to RCA in 2013; PCI X 3 in 2014: reports not available but referenced in Dr. Saunders's office visit dated 05/24/2018 Current Visit: No (12) History of ventricular septal myectomy Status: Chronic Comment: Septal Myectomy and CABG X 2 with Left internal thoracic artery to the LAD, and reversed SVG of the PDA per Dr. Cheung @ [facility] Current Visit: No (13) Hx of atrioventricular node ablation Status: Chronic Comment: AV node RFA X2 noriega per report;Subsequent implant of single chamber ICD per Dr. Loya @ [facility], [place] Current Visit: No (14) Hyperlipidemia Status: Chronic Current Visit: No (15) Hypertension Status: Chronic Current Visit: No (16) Peripheral vascular disease Status: Chronic Current Visit: No (17) Presence of combination internal cardiac defibrillator (ICD) and pacemaker Status: Chronic Comment: Initial single chamber ICD implant was 12/19/[address] Loya @ [facility] [place]. S/P EP/RFA; subsequent upgrade to combination pacer/ICD implant 12/11/16 [facility] [id number] Current Visit: No (18) Type 2 diabetes mellitus Status: Chronic Current Visit: No (19) Venous insufficiency of both lower extremities Status: Chronic Current Visit: No - Allergies/Procedures Done in Hospital Allergies/Adverse Reactions: Allergies latex Allergy (Verified 11/12/18 16:07) Anaphylaxis meperidine [From Demerol] Allergy (Verified 11/12/18 16:07) Hives Penicillins Allergy (Verified 11/12/18 16:07) Hives Tetracyclines Allergy (Verified 11/12/18 16:07) Hives aspirin Adverse Reaction (Verified 11/12/18 16:07) Unknown atorvastatin Adverse Reaction (Verified 11/12/18 16:07) Unknown codeine Adverse Reaction (Verified 11/12/18 16:07) Unknown hydromorphone [From Dilaudid] Adverse Reaction (Verified 11/12/18 16:07) Unknown pentazocine Adverse Reaction (Verified 11/12/18 16:07) Unknown pioglitazone Adverse Reaction (Verified 11/12/18 16:07) Unknown propoxyphene Adverse Reaction (Verified 11/12/18 16:07) Unknown sulfamethoxazole [From Bactrim] Adverse Reaction (Verified 11/12/18 16:07) Unknown trimethoprim [From Bactrim] Adverse Reaction (Verified 11/12/18 16:07) Unknown chloroprep Allergy (Uncoded 11/12/18 16:07) Unknown Procedures: Dialysis - Type of Care/Length of Stay Estimated LOS: More Than 30 Days Type of Care Needed: Skilled Rehab Potential: Fair Prognosis: Fair - Additional Orders/Day of Discharge H&P will serve as current which was dated: 11/28/18 Day of Discharge: 12/08/18 - Dietary and Speech Recommendations Dietitian Recommendations/Changes: Rec diet change to cardiac, low sodium diet d/t poor po intake and increased needs r/t dialysis tx. Would benefit from ONS such as Nepro CarbSteady but pt continues to refuse. Rec consider appetite stimulant re: poor po intake. - Follow Up Care Primary Care Physician: Mook Rain MD [Primary Care Provider] - Please follow up with your Primary Care Physician in: 1 Week Please Follow Up With: Jonna Martin MD When: As scheduled, continue dialysis M,W.F Please Follow Up With: Anju Anders MD When: 2 weeks
[2018-12-08] MEDS: Ciprofloxacin 200 MG/100 ML BAG 100 MG IV (11:35)
[2018-12-08] MEDS: Ondansetron 4 MG/2 ML Vial IV (11:35)
--- NOTE | 2018-12-08 11:45 | CASEMGMT ---
Patient is ready for discharge back to [facility] at [facility] today. DWAYEN faxed orders to [facility]. DWAYNE called [facility] and arranged for milk pickup truck driver at [facility] via [employer] van. DWAYNE notified RN, psychiatric secretary, patient, and Tosin at [facility]. DWAYNE also attempted to call patient's daughter, but she has a voice mail that has not been set up. Patient said she should already know she is being discharged as she was in her earlier. DWAYNE can try again. Plan: d/c back to [place] under skilled level of care. [facility] transported via [employer] at [address]. Rebecca MARINELLI MSW
--- NOTE | 2018-12-08 12:11 | PCM.DC.SUM ---
<Nas Servin - Last Filed: 12/08/18 12:41> Discharge Date and Diagnosis - Problem List Patient Problems: Active and Suspected Problems (Last Reviewed 06/14/18 @ 10:42 by Arline Galindo) GI bleed (Acute) Colitis (Acute) Date of Admission: 11/28/18 Date of Discharge: 12/08/18 - Primary Discharge Diagnosis Active and Suspected Problems (Last Reviewed 06/14/18 @ 10:42 by Arline Galindo) GI bleed (Acute) 2/2 acute Colitis ESRD Acute on chronic anemia 2/2 GI bleed, acute blood loss Elevated troponin 2/2 demand ischemia HTN Chronic hypoxic resp failure HLD Ischemic CM with AICD in place PAfib. T2DM with Obesity - Secondary Discharge Diagnosis Chronic Problems (Last Updated 06/16/18 @ 10:57 by Arline Galindo) Hx of atrioventricular node ablation (Chronic 12/19/14) AV node RFA X2 noriega per report;Subsequent implant of single chamber ICD per Dr. Loya @ [facility], [place] 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 (Chronic) Atherosclerotic heart disease of [place] coronary artery without angina pectoris (Chronic) Septal Myectomy and CABG X 2 with Left internal thoracic artery to the LAD, and reversed SVG of the PDA per Dr. Cheung @ [facility]. Also subsequent PCI's :PCI X 6 to RCA in 2013; PCI X 3 in 2014: reports not available but referenced in Dr. Saunders's office visit dated 05/24/2018 History of ventricular septal myectomy (Chronic 07/18/04) Septal Myectomy and CABG X 2 with Left internal thoracic artery to the LAD, and reversed SVG of the PDA per Dr. Cheung @ [facility] S/P CABG x 2 (Chronic 07/18/04) Septal Myectomy and CABG X 2 with Left internal thoracic artery to the LAD, and reversed SVG of the PDA per Dr. Cheung @ [facility] Hypertension (Chronic) Hyperlipidemia (Chronic) Type 2 diabetes mellitus (Chronic) COPD (chronic obstructive pulmonary disease) (Chronic) Chronic hypoxemic respiratory failure (Chronic) Atrial fibrillation (Chronic) 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 12/11/16) Initial single chamber ICD implant was 12/19/[address] Loya @ [facility] [place]. S/P EP/RFA; subsequent upgrade to combination pacer/ICD implant 12/11/16 [employer] VR [id number] End stage renal disease (Chronic) Diabetic neuropathy (Chronic) Peripheral vascular disease (Chronic) Venous insufficiency of both lower extremities (Chronic) Congestive heart failure (Chronic) History of PTCA (Chronic) PCI X 6 to RCA in 2013; PCI X 3 in 2014: reports not available but referenced in Dr. Saunders's office visit dated 05/24/2018 Hospital Course and Treatment Imaging Results: CT/Brain/Head without Contrast IMPRESSION: Chronic involutional changes of the brain. RAD/Chest 1 View (Portable) IMPRESSION: Blunting of the left costophrenic angle with findings suggestive of scarring at the left lung base. RAD/Pelvis 1 or 2 Views IMPRESSION: No acute findings RAD/CXR for Line Placement IMPRESSION: Small left pleural effusion and left lower lobe atelectasis. No evidence for pneumothorax status post central line placement CT/Abdomen/Pelvis WITH Contrast IMPRESSION: Nonspecific acute inflammatory bowel disease involving the descending colon with trace of free fluid in the paracolic gutter and pelvis There are also diverticular changes within the descending and sigmoid colon however due to the length of the involved segment of inflamed bowel diverticulitis is less likely to be etiology. US/Transvaginal Non- IMPRESSION: Nonvisualized uterus and ovaries. No pelvic free fluid or obvious mass. CT/Abdomen/Pel W ORAL Cont Only IMPRESSION: Stable small left pleural effusion and calcified pleural plaques with atelectasis at the lung bases. Sigmoid diverticulosis. Consults: Nephro - [place] Gen Surgery - [place] Operations: None Procedures: None Summary of Care Provided: Hospital course: The patient is a 78 year old F with pmhx of CAD prior CABG and stents, cardiomyopathy, Pacer/AICD in place, , ESRD, Afib,CHF, HTN, HLD, T2DM, prior ventricular septal myectomy, chronic leg wounds, who presented to the ER from half-way with a fall. She also complianed of diarrhea 4-5 x per day and mild abdominal pain. She was found to have low BP and elevated lactate. She was admitted to the ICU for hypovolemic vs septic shock. She was placed on empiric abx and IV fluids and norepinephrine. Pt had ongoing abdominal pain and a CT abdomen was obtained and had nonspecific inflammation of the descending colon. She developed some bleeding which was presumed to be vaginal. An ultrasound was obtained and did not reveal a source of bleeding, so the source was suspected as GI. She had positive occult blood. Anticoagulation was held. Rectal exam was performed and showed copious blood and clots. She was felt to have colitis, which was likely the source of her septic shock. Gen surgery was consulted. Conservative management was advised. Protonix was started. Hgb was monitored and there and remained stable. No transfusion was performed. Surgery recommended follow up in 2 weeks, low fiber diet, and gentle stool softeners. She will likely need a colonoscopy as an outpatient. She continued to have RUQ pain which was felt to be secondary to mild constipation. She should have tylenol for pain going forward, and should avoid opiates 2/2 constipation. She will continue reglan. BID colace and PRN milk of mag ordered for discharge. She should not have further anticoagulants. She was transitioned to oral cipro and flagyl for discharge and will have seven more days. Please continue prior dialysis schedule as directed by Dr. Martin. Pt was discharged back to SNF in stable condition. This patient was seen by Nas Servin PA-C under the supervision of Doctor Aquino. [] Patient Problems: Active and Suspected Problems (Last Reviewed 06/14/18 @ 10:42 by Arline Galindo) GI bleed (Acute) Colitis (Acute) - Physical Exam Vital Signs Temp Pulse Resp BP Pulse Ox 97.8 F 66 17 110/52 L 100 12/08/18 10:36 12/08/18 11:43 12/08/18 10:36 12/08/18 11:43 12/08/18 10:36 Oxygen Flow Rate (L/min) 2 Oxygen Delivery Method Nasal Cannula Weight: 202 lb 6.15 oz Body Mass Index (BMI) 30.4 Finger Stick Blood Glucose 145 Orthostatic Vital Signs Start: 12/08/18 11:42 Freq: q24h Status: Active Protocol: Activity Type Activity Date Activity User E-Sign Co-Sign Detail Recorded Client Recorded Date Recorded By Document 12/08/18 11:43 DS [id number] 12/08/18 11:44 DS 12/08/18 11:43 Orthostatic Vitals Standing -Blood Pressure (90/60-120/80) 103/58 L -Extremity Use Left Arm -Pulse Rate (60-100) 67 Sitting -Blood Pressure (90/60-120/80) 110/52 L -Extremity Use Left Arm -Pulse Rate (60-100) 66 Intake and Output for Last 24 Hours 12/06/18 12/07/18 12/08/18 23:59 23:59 23:59 Intake Total 2344 / 2344 1319.2 / 1319.2 132.9 / 132.9 Output Total 2800 / 2800 Balance -456 / -456 1319.2 / 1319.2 132.9 / 132.9 Laboratory Tests Past 24 Hrs 12/08/18 12/08/18 05:10 05:10 WBC 7.1 RBC 2.63 L Hgb 8.3 L Hct 27.0 L MCV 102.7 H MCH 31.6 MCHC 30.7 L RDW 14.4 RDW Differential 51.1 H Plt Count 131 L MPV 8.9 Sodium 137 Potassium 3.6 Chloride 100 Carbon Dioxide 28.0 Anion Gap 9 BUN 15 Creatinine 2.51 H Estim Creat Clear Calc 18.93 Est GFR (MDRD) Af Amer 24 L Est GFR (MDRD) Non-Af 20 L BUN/Creatinine Ratio 6.0 L Glucose 83 Calcium 7.7 L POC Glucose 12/08/18 12/07/18 12/07/18 06:43 20:48 17:24 POC Glucose 72 90 106 Discharge Diet: Low fat/ Low Cholesterol, 1800 Calorie Control Diet, 2000 mg Sodium Diet, - - Low fiber Discharge Activity: Return to Normal Activity Home Medications: Medications to take at Discharge Metoclopramide [Reglan] 10 mg PO BID 11/04/18 Pregabalin [Lyrica] 25 mg PO DAILY 11/04/18 Rosuvastatin Calcium [Crestor] 20 mg PO QHS 11/12/18 Amiodarone HCl 200 mg PO DAILY 11/28/18 Diphenhydramine HCl 25 mg PO Q6H PRN PRN 11/28/18 Docusate Sodium [Colace] 100 mg PO BID PRN 11/28/18 Loperamide HCl [Loperamide] 2 mg PO Q6H PRN PRN 11/28/18 Magnesium Hydroxide [Milk Of Magnesia] 30 ml PO DAILY PRN PRN 11/28/18 Miconazole 100 gm TP BID 11/28/18 Nut.tx.impaired Renal Fxn,Soy [Novasource Renal 2 Dre] 240 ml PO BID 11/28/18 Pregabalin [Lyrica] 25 mg PO MOWEFR 11/28/18 Insulin Glargine [Lantus SoloStar Pen] 10 units SC 1100 pen 12/05/18 Menthol/Lanolin/Calamine/Znox [Calmoseptine Ointment] 1 applic TOPICAL TID tube 12/05/18 Metoprolol Succinate 12.5 mg PO DAILY #0 12/05/18 Sevelamer Carbonate [Renvela] 800 mg PO TIDCM #10 tablet 12/05/18 Ciprofloxacin [Cipro] 250 mg PO DAILY #7 tablet 12/08/18 Magnesium Hydroxide [Milk Of Magnesia] 30 ml PO DAILY PRN PRN #30 udc 12/08/18 Metronidazole [Flagyl] 500 mg PO TID #21 tablet 12/08/18 Pantoprazole Sodium [Protonix] 40 mg PO BID #0 12/08/18 Following Prescrptions Were Given to Patient: Ciprofloxacin [Cipro] 250 mg PO DAILY #7 tablet Magnesium Hydroxide [Milk Of Magnesia] 30 ml PO DAILY PRN PRN #30 udc PRN Reason: Constipation Metronidazole [Flagyl] 500 mg PO TID #21 tablet Sevelamer Carbonate [Renvela] 800 mg PO TIDCM #10 tablet Primary Care Physician: Mook Rain MD [Primary Care Provider] - Please follow up with your Primary Care Physician in: 1 Week Please Follow Up With: Jonna Martin MD When: As scheduled, continue dialysis M,W.F Please Follow Up With: Anju Anders MD When: 2 weeks Disposition: Snf facility Minutes spent on discharge:: 35 Patient Condition:: Stable Medical Necessity - Tobacco Use Smoking Status: Former smoker Meaningful Use Info Meaningful Use Diagnoses (Choose all that apply): None applicable <Manuel Aquino E - Last Filed: 12/08/18 13:20> Discharge Date and Diagnosis - Primary Discharge Diagnosis Active and Suspected Problems (Last Reviewed 06/14/18 @ 10:42 by Arline Galindo) #1 acute GI bleed, attributed to nonspecific colitis and being on Eliquis. #2 acute nonspecific colitis of the descending colon. #3 septic versus hypovolemic shock. #4 acute on chronic blood loss anemia. #5 indeterminate troponin attributed to demand ischemia. 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 Cheung @ [facility]. Also subsequent PCI's :PCI X 6 to RCA in 2013; PCI X 3 in 2014: reports not available but referenced in Dr. Saunders's office visit dated 05/24/2018 History of ventricular septal myectomy (Chronic 07/18/04) Septal Myectomy and CABG X 2 with Left internal thoracic artery to the LAD, and reversed SVG of the PDA per Dr. Cheung @ [facility] S/P CABG x 2 (Chronic 07/18/04) Septal Myectomy and CABG X 2 with Left internal thoracic artery to the LAD, and reversed SVG of the PDA per Dr. Cheung @ [facility] Hypertension (Chronic) Hyperlipidemia (Chronic) Type 2 diabetes mellitus (Chronic) COPD (chronic obstructive pulmonary disease) (Chronic) Chronic hypoxemic respiratory failure (Chronic) Atrial fibrillation (Chronic) 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 12/11/16) Initial single chamber ICD implant was 12/19/[address] Loya @ [facility] [place]. S/P EP/RFA; subsequent upgrade to combination pacer/ICD implant 12/11/16 [employer] VR [id number] End stage renal disease (Chronic) Diabetic neuropathy (Chronic) Peripheral vascular disease (Chronic) Venous insufficiency of both lower extremities (Chronic) Congestive heart failure (Chronic) History of PTCA (Chronic) PCI X 6 to RCA in 2013; PCI X 3 in 2015: reports not available but referenced in Dr. Saunders's office visit dated 05/24/2018 Hospital Course and Treatment Summary of Care Provided: Hospitalist note: Discharge summary above reviewed as well as physical examination and I agree with above discharge and treatment plan. Patient presented to the emergency room from the [facility] because of fall, she was found to be hypotensive in the ED and her lactic acid was 4.8 on admission consistent with with shock. Initially, the shock is attributed to hypovolemic shock versus septic shock although there was no evidence of infection. Patient was admitted to intensive care unit, treated with IV fluids and IV vasopressors as well as empiric IV antibiotics. Her blood pressure improved and her lactic acid is getting back to normal with IV fluids. A chest x-ray showed no acute findings, pneumonia ruled out. Patient was a dialysis patient and she was oliguric. Initial and repeat blood culture showed no growth in 5 days. Stool for C. difficile was negative. Stool for enteric pathogens were negative. Urine culture showed no growth. Respiratory panel for viruses were negative. After treatment, and blood pressure stabilized, leukocytosis resolving and patient remained afebrile. She was continued on her regular hemodialysis and nephrology was consulted. On admission, CT abdomen and pelvis with contrast revealed nonspecific acute inflammatory changes of the descending colon and diverticular changes of the descending and sigmoid colon, less likely due to diverticulitis. On December 05, 2018, patient was discharged to half-way facility and before discharge, patient had a large amount of rectal bleeding with dark colored red blood. She was not dizzy or lightheaded and her vital signs were stable. At that time, discharge canceled and patient was kept in the hospital. General surgery consulted and upon elevation of the CT abdomen pelvis and because of the acute inflammatory changes of the descending colon, she was started on IV Flagyl and ciprofloxacin for nonspecific colitis. Eliquis discontinued. Her hemoglobin and hematocrit were monitored and remained above 8 g/dL and there was no indication for blood transfusion. Patient's vital signs remained stable. Her symptoms of nausea and abdominal discomfort improved. Her stool studies were negative as mentioned above. General surgery recommended that patient may need further workup with colonoscopy in the near future and plan is to allow recovery at this time. After discussion with the patient regarding the Eliquis for chronic A. fib and benefits and risks of being on Eliquis, I recommended that patient should go off Eliquis at this time at least for several weeks and then may be restart Eliquis in 2-4 weeks. Patient aware and understand that her risk of stroke may increase at this time. Patient discharged to half-way facility in a stable medical condition, discharged on oxygen at 2 L which is her baseline, discharged on 1 week of ciprofloxacin and Flagyl, Eliquis discontinued, recommended follow-up with PCP in 1 week, follow-up with general surgery in 2 weeks, follow-up with nephrology according to her hemodialysis schedule. - Physical Exam General: Alert, Oriented x3, Cooperative, No apparent distress. HEENT: Atraumatic, PERRLA, EOMI. Neck: Supple, No JVD, Negative Carotid Bruits, Trachea Midline, Thyroid Normal. Lungs: Diminished breath sounds bilateral, otherwise clear, No rhonchi, No wheeze, No rales. Cardiovascular: Regular rate, Regular Rhythm, Normal S1, Normal S2, PMI Normal. Abdomen: Bowel Sounds Present, Soft, minimal tenderness on deep palpation, no guarding or rigidity, Non-Distended, No Hepato-splenomegaly. Extremities: No clubbing, No cyanosis, No edema Skin: No rashes, No breakdown Neurological: Neuro grossly intact Vital Signs are stable. This note was generated with [employer] dictation software. It may contain incorrect words, spelling, and punctuation that were not noted in checking the note before signing. - Physical Exam Vital Signs Temp Pulse Resp BP Pulse Ox 97.8 F 66 17 110/52 L 100 12/08/18 10:36 12/08/18 11:43 12/08/18 10:36 12/08/18 11:43 12/08/18 10:36 Oxygen Flow Rate (L/min) 2 Oxygen Delivery Method Nasal Cannula Weight: 202 lb 6.15 oz Body Mass Index (BMI) 30.4 Finger Stick Blood Glucose 145 Orthostatic Vital Signs Start: 12/08/18 11:42 Freq: q24h Status: Active Protocol: Activity Type Activity Date Activity User E-Sign Co-Sign Detail Recorded Client Recorded Date Recorded By Document 12/08/18 11:43 DS [id number] 12/08/18 11:44 DS 12/08/18 11:43 Orthostatic Vitals Standing -Blood Pressure (90/60-120/80) 103/58 L -Extremity Use Left Arm -Pulse Rate (60-100) 67 Sitting -Blood Pressure (90/60-120/80) 110/52 L -Extremity Use Left Arm -Pulse Rate (60-100) 66 Intake and Output for Last 24 Hours 12/06/18 12/07/18 12/08/18 23:59 23:59 23:59 Intake Total 2344 / 2344 1319.2 / 1319.2 132.9 / 132.9 Output Total 2800 / 2800 Balance -456 / -456 1319.2 / 1319.2 132.9 / 132.9 Laboratory Tests Past 24 Hrs 12/08/18 12/08/18 05:10 05:10 WBC 7.1 RBC 2.63 L Hgb 8.3 L Hct 27.0 L MCV 102.7 H MCH 31.6 MCHC 30.7 L RDW 14.4 RDW Differential 51.1 H Plt Count 131 L MPV 8.9 Sodium 137 Potassium 3.6 Chloride 100 Carbon Dioxide 28.0 Anion Gap 9 BUN 15 Creatinine 2.51 H Estim Creat Clear Calc 18.93 Est GFR (MDRD) Af Amer 24 L Est GFR (MDRD) Non-Af 20 L BUN/Creatinine Ratio 6.0 L Glucose 83 Calcium 7.7 L POC Glucose 12/08/18 12/08/18 12/07/18 11:32 06:43 20:48 POC Glucose 114 H 72 90 12/07/18 17:24 POC Glucose 106 Disposition: Snf facility Minutes spent on discharge:: 35 Patient Condition:: Stable Meaningful Use Info Meaningful Use Diagnoses (Choose all that apply): None applicable Code Visit Inpatient E&M: 13259 Disch Hosp
[2018-12-08 12:15] LABS: Bedside Glucose 114 mg/dL (70-110)
--- NOTE | 2018-12-08 12:16 | DS.PCM_ITS ---
<Nas Servin - Last Filed: 12/08/18 12:41> Discharge Date and Diagnosis - Problem List Patient Problems: Active and Suspected Problems (Last Reviewed 06/14/18 @ 10:42 by Arline Galindo) GI bleed (Acute) Colitis (Acute) Date of Admission: 11/28/18 Date of Discharge: 12/08/18 - Primary Discharge Diagnosis Active and Suspected Problems (Last Reviewed 06/14/18 @ 10:42 by Arline Galindo) GI bleed (Acute) 2/2 acute Colitis ESRD Acute on chronic anemia 2/2 GI bleed, acute blood loss Elevated troponin 2/2 demand ischemia HTN Chronic hypoxic resp failure HLD Ischemic CM with AICD in place PAfib. T2DM with Obesity - Secondary Discharge Diagnosis Chronic Problems (Last Updated 06/16/18 @ 10:57 by Arline Galindo) Hx of atrioventricular node ablation (Chronic 12/19/14) AV node RFA X2 noriega per report;Subsequent implant of single chamber ICD per Dr. Loya @ [facility] [place] 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 (Chronic) Atherosclerotic heart disease of [place] coronary artery without angina pectoris (Chronic) Septal Myectomy and CABG X 2 with Left internal thoracic artery to the LAD, and reversed SVG of the PDA per Dr. Cheung @ [facility]. Also subsequent PCI's :PCI X 6 to RCA in 2013; PCI X 3 in 2014: reports not available but referenced in Dr. Saunders's office visit dated 05/24/2018 History of ventricular septal myectomy (Chronic 07/18/04) Septal Myectomy and CABG X 2 with Left internal thoracic artery to the LAD, and reversed SVG of the PDA per Dr. Cheung @ [facility] S/P CABG x 2 (Chronic 07/18/04) Septal Myectomy and CABG X 2 with Left internal thoracic artery to the LAD, and reversed SVG of the PDA per Dr. Cheung @ [facility] Hypertension (Chronic) Hyperlipidemia (Chronic) Type 2 diabetes mellitus (Chronic) COPD (chronic obstructive pulmonary disease) (Chronic) Chronic hypoxemic respiratory failure (Chronic) Atrial fibrillation (Chronic) 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 12/11/16) Initial single chamber ICD implant was 12/19/[address] Loya @ [facility] [place]. S/P EP/RFA; subsequent upgrade to combination pacer/ICD implant 12/11/16 [employer] Ellipse VR [id number] End stage renal disease (Chronic) Diabetic neuropathy (Chronic) Peripheral vascular disease (Chronic) Venous insufficiency of both lower extremities (Chronic) Congestive heart failure (Chronic) History of PTCA (Chronic) PCI X 6 to RCA in 2013; PCI X 3 in 2014: reports not available but referenced in Dr. Saunders's office visit dated 05/24/2018 Hospital Course and Treatment Imaging Results: CT/Brain/Head without Contrast IMPRESSION: Chronic involutional changes of the brain. RAD/Chest 1 View (Portable) IMPRESSION: Blunting of the left costophrenic angle with findings suggestive of scarring at the left lung base. RAD/Pelvis 1 or 2 Views IMPRESSION: No acute findings RAD/CXR for Line Placement IMPRESSION: Small left pleural effusion and left lower lobe atelectasis. No evidence for pneumothorax status post central line placement CT/Abdomen/Pelvis WITH Contrast IMPRESSION: Nonspecific acute inflammatory bowel disease involving the descending colon with trace of free fluid in the paracolic gutter and pelvis There are also diverticular changes within the descending and sigmoid colon however due to the length of the involved segment of inflamed bowel diverticulitis is less likely to be etiology. US/Transvaginal Non- IMPRESSION: Nonvisualized uterus and ovaries. No pelvic free fluid or obvious mass. CT/Abdomen/Pel W ORAL Cont Only IMPRESSION: Stable small left pleural effusion and calcified pleural plaques with atelectasis at the lung bases. Sigmoid diverticulosis. Consults: Nephro - [place] Gen Surgery - [place] Operations: None Procedures: None Summary of Care Provided: Hospital course: The patient is a 78 year old F with pmhx of CAD prior CABG and stents, cardiomyopathy, Pacer/AICD in place, , ESRD, Afib,CHF, HTN, HLD, T2DM, prior ventricular septal myectomy, chronic leg wounds, who [facility]. She also complianed of diarrhea 4-5 x per day and mild abdominal pain. She was found to have low BP and elevated lactate. She was admitted to the ICU for hypovolemic vs septic shock. She was placed on empiric abx and IV fluids and norepinephrine. Pt had ongoing abdominal pain and a CT abdomen was obtained and had nonspecific inflammation of the descending colon. She developed some bleeding which was presumed to be vaginal. An ultrasound was obtained and did not reveal a source of bleeding, so the source was suspected as GI. She had positive occult blood. Anticoagulation was held. Rectal exam was performed and showed copious blood and clots. She was felt to have colitis, which was likely the source of her septic shock. Gen surgery was consulted. Conservative management was advised. Protonix was started. Hgb was monitored and there and remained stable. No transfusion was performed. Surgery recommended follow up in 2 weeks, low fiber diet, and gentle stool softeners. She will likely need a colonoscopy as an outpatient. She continued to have RUQ pain which was felt to be secondary to mild constipation. She should have tylenol for pain going forward, and should avoid opiates 2/2 constipation. She will continue reglan. BID colace and PRN milk of mag ordered for discharge. She should not have further anticoagulants. She was transitioned to oral cipro and flagyl for discharge and will have seven more days. Please continue prior dialysis schedule as directed by Dr. Martin. Pt was discharged back to SNF in stable condition. This patient was seen by Nas Servin PA-C under the supervision of Doctor Aquino. [] Patient Problems: Active and Suspected Problems (Last Reviewed 06/14/18 @ 10:42 by Arline Galindo) GI bleed (Acute) Colitis (Acute) - Physical Exam Vital Signs Temp Pulse Resp BP Pulse Ox 97.8 F 66 17 110/52 L 100 12/08/18 10:36 12/08/18 11:43 12/08/18 10:36 12/08/18 11:43 12/08/18 10:36 Oxygen Flow Rate (L/min) 2 Oxygen Delivery Method Nasal Cannula Weight: 202 lb 6.15 oz Body Mass Index (BMI) 30.4 Finger Stick Blood Glucose 145 Orthostatic Vital Signs Start: 12/08/18 11:42 Freq: q24h Status: Active Protocol: Activity Type Activity Date Activity User E-Sign Co-Sign Detail Recorded Client Recorded Date Recorded By Document 12/08/18 11:43 DS [id number] 12/08/18 11:44 DS 12/08/18 11:43 Orthostatic Vitals Standing -Blood Pressure (90/60-120/80) 103/58 L -Extremity Use Left Arm -Pulse Rate (60-100) 67 Sitting -Blood Pressure (90/60-120/80) 110/52 L -Extremity Use Left Arm -Pulse Rate (60-100) 66 Intake and Output for Last 24 Hours 12/06/18 12/07/18 12/08/18 23:59 23:59 23:59 Intake Total 2344 / 2344 1319.2 / 1319.2 132.9 / 132.9 Output Total 2800 / 2800 Balance -456 / -456 1319.2 / 1319.2 132.9 / 132.9 Laboratory Tests Past 24 Hrs 12/08/18 12/08/18 05:10 05:10 WBC 7.1 RBC 2.63 L Hgb 8.3 L Hct 27.0 L MCV 102.7 H MCH 31.6 MCHC 30.7 L RDW 14.4 RDW Differential 51.1 H Plt Count 131 L MPV 8.9 Sodium 137 Potassium 3.6 Chloride 100 Carbon Dioxide 28.0 Anion Gap 9 BUN 15 Creatinine 2.51 H Estim Creat Clear Calc 18.93 Est GFR (MDRD) Af Amer 24 L Est GFR (MDRD) Non-Af 20 L BUN/Creatinine Ratio 6.0 L Glucose 83 Calcium 7.7 L POC Glucose 12/08/18 12/07/18 12/07/18 06:43 20:48 17:24 POC Glucose 72 90 106 Discharge Diet: Low fat/ Low Cholesterol, 1800 Calorie Control Diet, 2000 mg Sodium Diet, - - Low fiber Discharge Activity: Return to Normal Activity Home Medications: Medications to take at Discharge Metoclopramide [Reglan] 10 mg PO BID 11/04/18 Pregabalin [Lyrica] 25 mg PO DAILY 11/04/18 Rosuvastatin Calcium [Crestor] 20 mg PO QHS 11/12/18 Amiodarone HCl 200 mg PO DAILY 11/28/18 Diphenhydramine HCl 25 mg PO Q6H PRN PRN 11/28/18 Docusate Sodium [Colace] 100 mg PO BID PRN 11/28/18 Loperamide HCl [Loperamide] 2 mg PO Q6H PRN PRN 11/28/18 Magnesium Hydroxide [Milk Of Magnesia] 30 ml PO DAILY PRN PRN 11/28/18 Miconazole 100 gm TP BID 11/28/18 Nut.tx.impaired Renal Fxn,Soy [Novasource Renal 2 Dre] 240 ml PO BID 11/28/18 Pregabalin [Lyrica] 25 mg PO MOWEFR 11/28/18 Insulin Glargine [Lantus SoloStar Pen] 10 units SC 1100 pen 12/05/18 Menthol/Lanolin/Calamine/Znox [Calmoseptine Ointment] 1 applic TOPICAL TID tube 12/05/18 Metoprolol Succinate 12.5 mg PO DAILY #0 12/05/18 Sevelamer Carbonate [Renvela] 800 mg PO TIDCM #10 tablet 12/05/18 Ciprofloxacin [Cipro] 250 mg PO DAILY #7 tablet 12/08/18 Magnesium Hydroxide [Milk Of Magnesia] 30 ml PO DAILY PRN PRN #30 udc 12/08/18 Metronidazole [Flagyl] 500 mg PO TID #21 tablet 12/08/18 Pantoprazole Sodium [Protonix] 40 mg PO BID #0 12/08/18 Following Prescrptions Were Given to Patient: Ciprofloxacin [Cipro] 250 mg PO DAILY #7 tablet Magnesium Hydroxide [Milk Of Magnesia] 30 ml PO DAILY PRN PRN #30 udc PRN Reason: Constipation Metronidazole [Flagyl] 500 mg PO TID #21 tablet Sevelamer Carbonate [Renvela] 800 mg PO TIDCM #10 tablet Primary Care Physician: Mook Rain MD [Primary Care Provider] - Please follow up with your Primary Care Physician in: 1 Week Please Follow Up With: Jonna Martin MD When: As scheduled, continue dialysis M,W.F Please Follow Up With: Anju Anders MD When: 2 weeks Disposition: Halfway facility Minutes spent on discharge:: 35 Patient Condition:: Stable Medical Necessity - Tobacco Use Smoking Status: Former smoker Meaningful Use Info Meaningful Use Diagnoses (Choose all that apply): None applicable <Manuel Aquino E - Last Filed: 12/08/18 13:20> Discharge Date and Diagnosis - Primary Discharge Diagnosis Active and Suspected Problems (Last Reviewed 06/14/18 @ 10:42 by Arline Galindo) #1 acute GI bleed, attributed to nonspecific colitis and being on Eliquis. #2 acute nonspecific colitis of the descending colon. #3 septic versus hypovolemic shock. #4 acute on chronic blood loss anemia. #5 indeterminate troponin attributed to demand ischemia. - Secondary Discharge Diagnosis Chronic Problems (Last Updated 06/16/18 @ 10:57 by Arline Galindo) Hx of atrioventricular node ablation (Chronic 12/19/14) AV node RFA X2 noriega per report;Subsequent implant of single chamber ICD per Dr. Loya @ [facility], [place] [employer] 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 (Chronic) Atherosclerotic heart disease of [place] coronary artery without angina pectoris (Chronic) Septal Myectomy and CABG X 2 with Left internal thoracic artery to the LAD, and reversed SVG of the PDA per Dr. Cheung @ [facility]. Also subsequent PCI's :PCI X 6 to RCA in 2013; PCI X 3 in 2014: reports not available but referenced in Dr. Saunders's office visit dated 05/24/2018 History of ventricular septal myectomy (Chronic 07/18/04) Septal Myectomy and CABG X 2 with Left internal thoracic artery to the LAD, and reversed SVG of the PDA per Dr. Cheung @ [facility] S/P CABG x 2 (Chronic 07/18/04) Septal Myectomy and CABG X 2 with Left internal thoracic artery to the LAD, and reversed SVG of the PDA per Dr. Cheung @ [facility] Hypertension (Chronic) Hyperlipidemia (Chronic) Type 2 diabetes mellitus (Chronic) COPD (chronic obstructive pulmonary disease) (Chronic) Chronic hypoxemic respiratory failure (Chronic) Atrial fibrillation (Chronic) 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 12/11/16) Initial single chamber ICD implant was 12/19/[address] Loya @ [facility] [place]. S/P EP/RFA; subsequent upgrade to combination pacer/ICD implant 12/11/16 [employer] Rob Ellipse VR [id number] End stage renal disease (Chronic) Diabetic neuropathy (Chronic) Peripheral vascular disease (Chronic) Venous insufficiency of both lower extremities (Chronic) Congestive heart failure (Chronic) History of PTCA (Chronic) PCI X 6 to RCA in 2013; PCI X 3 in 2015: reports not available but referenced in Dr. Saunders's office visit dated 05/24/2018 Hospital Course and Treatment Summary of Care Provided: Hospitalist note: Discharge summary above reviewed as well as physical examination and I agree with above discharge and treatment plan. Patient presented to the emergency room from the custodial because of fall, she was found to be hypotensive in the ED and her lactic acid was 4.8 on admission consistent with with shock. Initially, the shock is attributed to hypovolemic shock versus septic shock although there was no evidence of infection. Patient was admitted to intensive care unit, treated with IV fluids and IV vasopressors as well as empiric IV antibiotics. Her blood pressure improved and her lactic acid is getting back to normal with IV fluids. A chest x-ray showed no acute findings, pneumonia ruled out. Patient was a dialysis patient and she was oliguric. Initial and repeat blood culture showed no growth in 5 days. Stool for C. difficile was negative. Stool for enteric pathogens were negative. Urine culture showed no growth. Respiratory panel for viruses were negative. After treatment, and blood pressure stabilized, leukocytosis resolving and patient remained afebrile. She was continued on her regular hemodialysis and nephrology was consulted. On admission, CT abdomen and pelvis with contrast revealed nonspecific acute inflammatory changes of the descending colon and diverticular changes of the descending and sigmoid colon, less likely due to diverticulitis. On December 05, 2018, [facility] was [facility] to [facility] and before discharge, patient had a large amount of rectal bleeding with dark colored red blood. She was not dizzy or lightheaded and her vital signs were stable. At that time, discharge canceled and patient was kept in the hospital. General surgery consulted and upon elevation of the CT abdomen pelvis and because of the acute inflammatory changes of the descending colon, she was started on IV Flagyl and ciprofloxacin for nonspecific colitis. Eliquis discontinued. Her hemoglobin and hematocrit were monitored and remained above 8 g/dL and there was no indication for blood transfusion. Patient's vital signs remained stable. Her symptoms of nausea and abdominal discomfort improved. Her stool studies we re negative as mentioned above. General surgery recommended that patient may need further workup with colonoscopy in the near future and plan is to allow recovery at this time. After discussion with the patient regarding the Eliquis for chronic A. fib and benefits and risks of being on Eliquis, I recommended that patient should go off Eliquis at this time at least for several weeks and then may be restart Eliquis in 2-4 weeks. Patient aware and understand that her risk of stroke may increase at this time. Patient discharged to [facility] facility in a stable medical condition, discharged on oxygen at 2 L which is her baseline, discharged on 1 week of ciprofloxacin and Flagyl, Eliquis discontinued, recommended follow-up with PCP in 1 week, follow-up with general surgery in 2 weeks, follow-up with nephrology according to her hemodialysis schedule. - Physical Exam General: Alert, Oriented x3, Cooperative, No apparent distress. HEENT: Atraumatic, PERRLA, EOMI. Neck: Supple, No JVD, Negative Carotid Bruits, Trachea Midline, Thyroid Normal. Lungs: Diminished breath sounds bilateral, otherwise clear, No rhonchi, No wheeze, No rales. Cardiovascular: Regular rate, Regular Rhythm, Normal S1, Normal S2, PMI Normal. Abdomen: Bowel Sounds Present, Soft, minimal tenderness on deep palpation, no guarding or rigidity, Non-Distended, No Hepato-splenomegaly. Extremities: No clubbing, No cyanosis, No edema Skin: No rashes, No breakdown Neurological: Neuro grossly intact Vital Signs are stable. This note was generated with [employer] dictation software. It may contain incorrect words, spelling, and punctuation that were not noted in checking the note before signing. - Physical Exam Vital Signs Temp Pulse Resp BP Pulse Ox 97.8 F 66 17 110/52 L 100 12/08/18 10:36 12/08/18 11:43 12/08/18 10:36 12/08/18 11:43 12/08/18 10:36 Oxygen Flow Rate (L/min) 2 Oxygen Delivery Method Nasal Cannula Weight: 202 lb 6.15 oz Body Mass Index (BMI) 30.4 Finger Stick Blood Glucose 145 Orthostatic Vital Signs Start: 12/08/18 11:42 Freq: q24h Status: Active Protocol: Activity Type Activity Date Activity User E-Sign Co-Sign Detail Recorded Client Recorded Date Recorded By Document 12/08/18 11:43 DS [id number] 12/08/18 11:44 DS 12/08/18 11:43 Orthostatic Vitals Standing -Blood Pressure (90/60-120/80) 103/58 L -Extremity Use Left Arm -Pulse Rate (60-100) 67 Sitting -Blood Pressure (90/60-120/80) 110/52 L -Extremity Use Left Arm -Pulse Rate (60-100) 66 Intake and Output for Last 24 Hours 12/06/18 12/07/18 12/08/18 23:59 23:59 23:59 Intake Total 2344 / 2344 1319.2 / 1319.2 132.9 / 132.9 Output Total 2800 / 2800 Balance -456 / -456 1319.2 / 1319.2 132.9 / 132.9 Laboratory Tests Past 24 Hrs 12/08/18 12/08/18 05:10 05:10 WBC 7.1 RBC 2.63 L Hgb 8.3 L Hct 27.0 L MCV 102.7 H MCH 31.6 MCHC 30.7 L RDW 14.4 RDW Differential 51.1 H Plt Count 131 L MPV 8.9 Sodium 137 Potassium 3.6 Chloride 100 Carbon Dioxide 28.0 Anion Gap 9 BUN 15 Creatinine 2.51 H Estim Creat Clear Calc 18.93 Est GFR (MDRD) Af Amer 24 L Est GFR (MDRD) Non-Af 20 L BUN/Creatinine Ratio 6.0 L Glucose 83 Calcium 7.7 L POC Glucose 12/08/18 12/08/18 12/07/18 11:32 06:43 20:48 POC Glucose 114 H 72 90 12/07/18 17:24 POC Glucose 106 Disposition: Halfway facility Minutes spent on discharge:: 35 Patient Condition:: Stable Meaningful Use Info Meaningful Use Diagnoses (Choose all that apply): None applicable Code Visit Inpatient E&M: 32783 Disch Hosp
[2018-12-08] MEDS: Mag Hydrox/Al Hydrox/Simeth 30 ML UDC 15 ML PO (12:51)
--- NOTE | 2018-12-08 15:19 | NURSING ---
REPORT CALLED TO THE ELENITA LINDO
== END 2018-12-08 14:45 | disposition skilled nursing facility (03) | DRG 871 ==
LOC: ED 14:02 → ICU 14:33 → PCU 12-03 13:56
PROVIDERS: Hospitalist; Internal Medicine; Internal Medicine Critical Care Medicine; Internal Medicine Nephrology; Nurse Practitioner Family; Surgery; Admitting Provider Hospitalist; Emergency Provider Emergency Medicine; Family Provider Family Medicine; PCP Family Medicine; Visit Provider Hospitalist
DX: A41.9 Sepsis, unspecified organism (principal); N18.6 End stage renal disease; R57.1 Hypovolemic shock; R65.21 Severe sepsis with septic shock; I13.2 Hypertensive heart and chronic kidney disease with heart failure and with stage 5 chronic kidney disease, or end stage renal disease; J96.11 Chronic respiratory failure with hypoxia; E87.2 Acidosis; D62 Acute posthemorrhagic anemia; I24.8 Other forms of acute ischemic heart disease; K52.9 Noninfective gastroenteritis and colitis, unspecified; Z99.81 Dependence on supplemental oxygen; E11.40 Type 2 diabetes mellitus with diabetic neuropathy, unspecified; E11.22 Type 2 diabetes mellitus with diabetic chronic kidney disease; I25.5 Ischemic cardiomyopathy; E11.51 Type 2 diabetes mellitus with diabetic peripheral angiopathy without gangrene; I50.9 Heart failure, unspecified; I48.0 Paroxysmal atrial fibrillation; S00.03XA Contusion of scalp, initial encounter; W19.XXXA Unspecified fall, initial encounter; Y92.129 Unspecified place in nursing home as the place of occurrence of the external cause; Z66 Do not resuscitate; I25.10 Atherosclerotic heart disease of native coronary artery without angina pectoris; I87.2 Venous insufficiency (chronic) (peripheral); E78.5 Hyperlipidemia, unspecified; E66.9 Obesity, unspecified; J44.9 Chronic obstructive pulmonary disease, unspecified; Z99.2 Dependence on renal dialysis; Z68.30 Body mass index [BMI] 30.0-30.9, adult; Z95.5 Presence of coronary angioplasty implant and graft; Z79.4 Long term (current) use of insulin; Z79.01 Long term (current) use of anticoagulants; Z95.810 Presence of automatic (implantable) cardiac defibrillator; Z95.1 Presence of aortocoronary bypass graft; Z79.899 Other long term (current) drug therapy; Z87.891 Personal history of nicotine dependence
CPT/HCPCS: 36415; 51702; 70450; 71045; 72170; 74176; 74177; 76830; 80048; 80053; 80069; 80076; 82274; 82962; 83605; 83690; 83735; 84100; 84484; 85014; 85018; 85025; 85027; 85610; 87040; 87086; 87493; 87506; 87633; 87641; 90937; 93005; 97110; 97162; 97165; 97530; 97535; 99285; J0885; J2185; J7030; J7040; J7050; J7120; Q9967; A4216; G0257; J0744; J2405; J3490

== ENCOUNTER 2018-12-19 11:20 | Emergency (ER) | payer MEDICARE, SELFPAY ==
[2018-11-28 15:07] VITALS: BMI 30.4
[2018-12-19 11:21] VITALS: BP 105/83; PULSE 63; RESP 18; TEMP 37.4; O2SAT 99; BMI 40.8
--- NOTE | 2018-12-19 11:53 | EKG12_ITS ---
Test Reason : HYPOTENSION Blood Pressure : / mmHG Vent. Rate : 060 BPM Atrial Rate : 064 BPM P-R Int : 000 ms QRS Dur : 210 ms QT Int : 564 ms P-R-T Axes : 000 -72 105 degrees QTc Int : 564 ms Ventricular-paced rhythm Abnormal ECG Confirmed by NATALIE PARRY ([id number]), managing editor JASON OSORIO ([id number] on 12/23/2018 1:25:56 PM Referred By: CASSIE Confirmed By:NATALIE PARRY
--- NOTE | 2018-12-19 12:00 | ED.VISSUMM ---
- ER Visit Summary Date of Service: 12/19/18 Chief Complaint: Sent from dialysis due to low blood pressure. History of Present Illness: The patient is a 78 F history of anemia, end-stage renal disease dialysis, A. fib, cardiac stents, ischemic cardiomyopathy, insulin-dependent diabetes, COPD with prior CABG. Reportedly patient was taken to her normal dialysis this morning and her blood pressure was low at 80/40 in the center of the ER for evaluation. She was recently hospitalized and worked up for hypotension. She also states she has been having nausea vomiting 5-10 episodes of diarrhea per day for the last 4 days. She denies any melena. She is on blood thinners namely Eliquis. She denies chest pain or shortness of breath. She has had a nonproductive cough. She denies fever or chills or abdominal pain. Physical Examination: Elderly white female. Vital signs currently are stable her blood pressure is 105/83. Temperature 99.4. Pulse ox 9 9% on room air no signs of hypoxia. H EENT exam dry mixed membranes. Neck nontender no lymphadenopathy. Lungs coarse breath sounds bilaterally. Heart rate about 60 3/6 murmur. Abdomen soft, nontender, nondistended normal bowel sounds no peritoneal signs. Her chest wall she has a right tunneled Vas-Cath on her left neck there is an OpSite from where she had a recent central line. Patient moving all 4 extremities. Calves are nontender without edema. There is no obvious cellulitis. Neurologically she is awake and alert giving most of her history. With no focal motor deficits. Test Results: CBC White count 5. Hemoglobin 9.6 which is her baseline. She is chronically anemic. Electrolytes unremarkable gap is 6. Her creatinine is 5.4 which is her baseline due to her end-stage renal disease. Liver enzymes normal. PT/INR normal. Urinalysis shows no nitrites and 1+ bacteria is growing 100 white cells and 50-100 red cells culture was sent await for those results due to her diarrhea and clinically she does not have any signs of a urinary tract infection. Lactate 0.9. Troponin normal. EKG paced rhythm rate of 60. Her chest x-ray shows chronic changes. Cardiomegaly. Left-sided pacemaker. And left pleural effusion. No significant change in no obvious pneumonia. Read both by myself and the radiologist. Stool for C. difficile was negative. Emergency Department Course and Treatment: Patient be worked up for hypotension including both cardiac and/or infectious. This could also be secondary to dehydration. She will be given half a liter normal saline. We will gently hydrate her due to her renal status. Repeat exam patient is doing well. She has been resting emergency department for more than 5 hours. She did have some diarrhea here it was C. difficile negative. Family is comfortable with her being discharged home. I am going to speak with the dialysis center to see when they can set her up to be dialyzed again. Treatment Plan: Fluids and rest. Follow-up with primary care physician. Disposition: Discharge Impression: Acute transient hypotension Acute nausea, vomiting and diarrhea Dehydration End-stage renal disease History of ischemic cardiomyopathy, CAD and CABG This note was generated with [employer] dictation software. It may contain incorrect words, spelling, and punctuation that were not noted in review of the chart prior to signing ED Disposition - Plan for ED Patient: Disposition: Home or Assisted Living Instructions: ED Gastroenteritis Viral Prescriptions: Ondansetron [Zofran Odt] 4 mg PO Q8H PRN PRN #7 tab PRN Reason: Nausea Referrals: Mook Rain MD [Primary Care Provider] - As soon as possible Additional Instructions: Plan fluids and rest. Imodium for the diarrhea. Follow-up your primary care physician. Return if feeling worse. Zofran as needed for nausea.
[2018-12-19 12:04] VITALS: TEMP 37.1; O2SAT 97
[2018-12-19 12:10] VITALS: BP 114/97; PULSE 60; RESP 13; O2SAT 100
--- NOTE | 2018-12-19 12:35 | RAD_ITS ---
STUDY: X-RAY CHEST REASON FOR EXAM: Female, 78 years old. Mid chest pain. Shortness of breath and cough. TECHNIQUE: AP and lateral views of the chest. COMPARISON: Comparison is made with prior study dated November 28, 2018. FINDINGS: A right-sided double-lumen catheter is seen with the tip at the junction of the superior vena cava and right atrium. EKG electrodes are seen. There is evidence of vascular congestion and mild degree of CHF. Small left pleural effusion with underlying atelectasis. Sternal cerclage wires and vascular clips are present from a prior sternotomy and coronary artery bypass graft procedure (CABG). Cardiomegaly. A left-sided ICD is seen. Normal mediastinum and samuel. Normal visualized pulmonary arteries. Normal visualized aortic arch and descending thoracic aorta. Normal visualized thoracic spine. Normal visualized ribs, clavicles, and shoulders. There is no demonstrated abnormality of the visualized soft tissue structures of the upper abdomen. RAD/Chest PA and Lateral IMPRESSION: Findings suggest a mild degree of CHF with small left pleural effusion and left basilar atelectasis. Electronically Signed: Antonio Pascual, at 13:03 EST , Service support ,
[2018-12-19 13:16] LABS: Mucous, Urine 0 SEEN /hpf (<or=2+)
[2018-12-19 13:20] LABS: Color, Urine Brown (Yellow); Glucose, Dipstick Normal (Normal); Ketone-Dipstick 5 mg/dl (Negative); Leukocyte Esterase-Dipstick 500 /ul (Negative); Nitrite-Dipstick Negative (Negative); Occult Blood-Urine 150 /ul (Negative); Protein-Dipstick 30 mg/dl (Negative); Specific Gravity, Urine 1.025 (1.002-1.030); Urine Clarity Cloudy (Clear); Urine Urobilinogen 1 mg/dl (Normal)
[2018-12-19 13:27] LABS: Urine Bilirubin Dipstick 6 mg/dL (Negative)
[2018-12-19 13:30] LABS: Red Blood Cells-Urine 50-100 SEEN /hpf (0-5); Squamous Epithelial Cells - UA 0-5 SEEN /hpf (5-10); White Blood Cells >100 SEEN /hpf (0-5)
[2018-12-19 13:31] LABS: Bacteria 1+ /hpf (None Seen)
[2018-12-19 14:03] LABS: Absolute Lymphocyte Count 0.98 X10^3/ul (0.83-4.51); Absolute Neutrophil Count 3.2 X10^3/uL (2.0-7.7); Basophil# 0.03 X10^3/uL; Basophil% 0.6 % (0-1); Eosinophil# 0.01 X10^3/uL; Eosinophils% 0.2 % (0-5); Hematocrit 31.9 % (37-47); Hemoglobin 9.6 g/dl (12.0-15.0); Lymphocyte # 0.98 X10^3/ul (4.0); Lymphocyte % 18.9 % (19-41); Mean Corp Hgb Conc 30.1 g/gl (32-36); Mean Corpuscular Hgb 32.1 pg (27.0-32.0); Mean Corpuscular Volume 106.7 fL (81-99); Mean Platelet Vol. 9.3 fl (6.2-12.0); Monocyte# 0.94 X10^3/uL; Monocyte% 18.1 % (0-10); Neutrophil # 3.21 X10^3/uL (2.7-7.7); Platelet Count 77 K/mm3 (150-450); RBC Distribution Width CV 17.1 % (11.6-14.6); RBC Distribution Width SD 64.5 fl (35.1-43.9); Red Blood Count 2.99 M/mm3 (4.2-5.4); White Blood Count 5.2 K/mm3 (4.4-11.0)
[2018-12-19 14:07] LABS: POSITIVE COUNT NO; POSITIVE DIFFERENTIAL NO; POSITIVE MORPHOLOGY NO
[2018-12-19 14:18] LABS: International Normalized Ratio 1.3; Prothrombin Time (Protime)PT. 16.1 SECONDS (11.7-14.9)
[2018-12-19 14:21] LABS: Partial Thromboplast Time 35.9 Seconds (24.1-36.2)
[2018-12-19 14:38] LABS: ALB/GLOB Ratio 0.5 RATIO (0.9-2.4); AST(SGOT) 23 U/L (15-37); Alanine Aminotransfer ALT/SGPT 13 U/L (13-56); Albumin, Serum 2.2 g/dL (3.2-5.0); Alkaline Phosphatase 85 U/L (45-117); Anion Gap 6 (5-15); BUN 22 mg/dL (7-18); BUN/Creat Ratio 4.1 RATIO (10-20); Calcium,Total 7.6 mg/dL (8.5-10.1); Chloride 100 mmol/L (98-107); Creatinine, Serum 5.41 mg/dL (0.55-1.02); EST Glomerular Filtration Rate 8 mL/min (>60); Est Glom Filt Rate - Afr Amer 10 mL/min (>60); Estimated Creatinine Clearance 12.61 ml/min; Globulin 4.1 g/dL (2.2-4.2); Glucose 96 mg/dL (74-106); Potassium 3.9 mmol/L (3.5-5.1); Protein, Total 6.3 g/dL (6.4-8.2); Sodium Level 136 mmol/L (136-145)
[2018-12-19 14:45] LABS: Lactic Acid 0.9 mmol/L (0.4-2.0)
[2018-12-19 14:53] VITALS: BP 119/54; PULSE 68; RESP 18; O2SAT 96
[2018-12-19 16:17] VITALS: BP 106/57; PULSE 64; RESP 14; TEMP 36.4; O2SAT 100
--- NOTE | 2018-12-19 16:49 | ED.DEP ---
ED Disposition - Plan for ED Patient: Disposition: Home or Assisted Living Instructions: ED Gastroenteritis Viral Prescriptions: Ondansetron [Zofran Odt] 4 mg PO Q8H PRN PRN #7 tab PRN Reason: Nausea Referrals: Mook Rain MD [Primary Care Provider] - As soon as possible Additional Instructions: Plan fluids and rest. Imodium for the diarrhea. Follow-up your primary care physician. Return if feeling worse. Zofran as needed for nausea.
[2018-12-19 17:59] VITALS: BP 119/86; PULSE 66; RESP 18; O2SAT 100
--- NOTE | 2018-12-19 18:32 | ED.RN ---
CALLED REPORT BACK TO [facility]. THEY ARE AWARE SHE MISSED DIALYSIS TODAY. THEY WILL ARRANGE FOR NEXT TREATMENT.
== END 2018-12-19 18:32 ==
PROVIDERS: Emergency Provider Emergency Medicine; Family Provider Family Medicine; PCP Family Medicine
DX: I95.89 Other hypotension (principal); R11.2 Nausea with vomiting, unspecified; R19.7 Diarrhea, unspecified; E86.0 Dehydration; I13.2 Hypertensive heart and chronic kidney disease with heart failure and with stage 5 chronic kidney disease, or end stage renal disease; E11.22 Type 2 diabetes mellitus with diabetic chronic kidney disease; N18.6 End stage renal disease; I50.9 Heart failure, unspecified; Z99.2 Dependence on renal dialysis; Z79.4 Long term (current) use of insulin; D63.1 Anemia in chronic kidney disease; I25.5 Ischemic cardiomyopathy; I25.10 Atherosclerotic heart disease of native coronary artery without angina pectoris; I48.91 Unspecified atrial fibrillation; I25.2 Old myocardial infarction; Z95.1 Presence of aortocoronary bypass graft; J44.9 Chronic obstructive pulmonary disease, unspecified; Z95.5 Presence of coronary angioplasty implant and graft; Z79.899 Other long term (current) drug therapy; Z86.73 Personal history of transient ischemic attack (TIA), and cerebral infarction without residual deficits
CPT/HCPCS: 71046; 80053; 81001; 83605; 85025; 85610; 85730; 87040; 87077; 87086; 87088; 87106; 87186; 87493; 93005; 99285; J7030; J7040; A4216